=== PATIENT | female | born 1990 | race Caucasian/White ===

== ENCOUNTER 2022-11-11 13:55 | Emergency (ER) | payer BC, MEDICAID, SELFPAY ==
[2022-11-11 14:04] VITALS: BP 145/86; PULSE 78; RESP 18; TEMP 36.7; O2SAT 95; BMI 37.8
[2022-11-11 14:33] VITALS: O2SAT 99
--- NOTE | 2022-11-11 14:36 | ED.GENADUL1 ---
HPI - General Adult General Chief complaint: Headache Stated complaint: NUMBNESS R SIDE OF FACE AND BACK OF HEAD Time Seen by Provider: 11/11/22 14:33 Source: patient Mode of arrival: walk-in Limitations: no limitations Related Data Home Medications Medication Instructions Recorded Confirmed alprazolam 0.5 mg tablet 0.5 mg feeding tube PRN 11/11/22 11/11/22 citalopram 10 mg tablet 30 mg PO QDAY 11/11/22 11/11/22 labetalol 200 mg tablet 200 mg feeding tube TID 11/11/22 11/11/22 levothyroxine 50 mcg tablet 50 mcg PO QDAY 11/11/22 11/11/22 metformin 500 mg tablet 500 mg PO BID 11/11/22 11/11/22 phentermine 37.5 mg tablet 37.5 mg PO QDAY 11/11/22 11/11/22 polysaccharide iron complex 180 mg 180 mg PO QDAY 11/11/22 11/11/22 iron capsule (Pro Fe) vitamin no.115-iron 29 1 tab PO QDAY 11/11/22 11/11/22 mg-folic acid 1 mg chewable tablet ( 19) topiramate 25 mg tablet 50 mg PO Q12H 11/11/22 11/11/22 Allergies Allergy/AdvReac Type Severity Reaction Status Date / Time amoxicillin AdvReac Intermediate Verified 11/11/22 14:04 codeine AdvReac Intermediate Verified 11/11/22 14:09 morphine AdvReac Intermediate Verified 11/11/22 14:04 PCN AdvReac Intermediate Uncoded 11/11/22 14:09 Exam Constitutional Vital Signs, click to edit/add: Last Vital Signs Temp 98.1 F 11/11/22 14:04 Pulse 78 11/11/22 14:04 Resp 18 11/11/22 14:04 BP 145/86 H 11/11/22 14:04 Pulse Ox 99 11/11/22 14:33 O2 Del Method Room Air 11/11/22 14:33 Course Vital Signs Vital signs: Vital Signs Temperature 98.1 F 11/11/22 14:04 Pulse Rate 78 11/11/22 14:04 Respiratory Rate 18 11/11/22 14:04 Blood Pressure 145/86 H 11/11/22 14:04 Pulse Oximetry 95 11/11/22 14:04 Oxygen Delivery Method Room Air 11/11/22 14:04 Temperature 98.1 F 11/11/22 14:04 Pulse Rate 78 11/11/22 14:04 Respiratory Rate 18 11/11/22 14:04 Blood Pressure 145/86 H 11/11/22 14:04 Pulse Oximetry 99 11/11/22 14:33 Oxygen Delivery Method Room Air 11/11/22 14:33 Discharge Plan Discharge Chief Complaint: Headache Patient Disposition: Left Against Medical Advice Prescriptions / Home Meds: No Action alprazolam 0.5 mg tablet 0.5 mg feeding tube PRN citalopram 10 mg tablet 30 mg PO QDAY labetalol 200 mg tablet 200 mg feeding tube TID levothyroxine 50 mcg tablet 50 mcg PO QDAY metformin 500 mg tablet 500 mg PO BID phentermine 37.5 mg tablet 37.5 mg PO QDAY Pro Fe 180 mg iron capsule 180 mg PO QDAY 19 29 mg iron- 1 mg tablet,chewable 1 tab PO QDAY topiramate 25 mg tablet 50 mg PO Q12H Stand Alone Forms: Portal Instructions Referrals: ALINE GUZMAN [Primary Care Provider] - 1 week Discharge Date/Time: 11/11/22 15:36
[2022-11-11] MEDS: ACETAMINOPHEN 500 MG TABLET 1000 MG PO (14:54)
[2022-11-11] MEDS: KETOROLAC TROMETHAMINE 30 MG/ML VIAL IVP (14:54)
[2022-11-11] MEDS: 0.9 % SODIUM CHLORIDE 1,000 ML 1000 ML IV (14:54)
[2022-11-11] MEDS: PROCHLORPERAZINE 10 MG/2 ML VIAL IV (14:54)
--- NOTE | 2022-11-11 15:32 | PC.NURSE ---
11/11/22 1532 heard iv pump beeping went into room pt left facility without telling staff removed iv and left on bed. went to waiting room out to parking lot pt driving out of driveway. went and updated dr pay. Yung Marrufo RN
== END 2022-11-11 15:36 | disposition left against medical advice (07) ==
PROVIDERS: Emergency Provider Emergency Medicine; PCP Family Medicine
DX: R51.9 Headache, unspecified (principal); Z53.29 Procedure and treatment not carried out because of patient's decision for other reasons; Z79.899 Other long term (current) drug therapy; Z79.84 Long term (current) use of oral hypoglycemic drugs
CPT/HCPCS: 96374; 96375; 99284

== ENCOUNTER 2023-06-15 15:49 | Outpatient (OUT) | payer BC, MEDICAID, SELFPAY ==
[2023-06-15 16:59] LABS: HCG Quantitative 43 mIU/mL
== END 2023-06-15 15:50 | disposition home or self-care (01) ==
PROVIDERS: PCP Family Medicine; Visit Provider Obstetrics & Gynecology
DX: Z32.01 Encounter for pregnancy test, result positive (principal)
CPT/HCPCS: 36415; 84702

== ENCOUNTER 2023-06-17 10:55 | Outpatient (OUT) | payer BC, MEDICAID, SELFPAY ==
--- OUTSIDE RECORDS SUMMARY | 2023-06-17 10:59 | XMS_ITS | CCD ---
Author Name Unknown Address [address] [facility] [address] [place] [address] Organization [facility] Care Team Providers Care Circular Shear Operator Name Role Phone PHYSICIAN, DEFAULT Unavailable Unavailable PHYSICIAN, DEFAULT Unavailable Unavailable Naga Wells Unavailable None, . Primary Care Provider UnavailAlesha Garcia Unavailable INGE LEUNG Admitting Unavailable INGE LEUNG Attending Unavailable NONE, . Primary Care Unavailable MATEO GODFREY Referring Unavailable NONE, . Primary Care Unavailable MATEO GODFREY Referring Unavailable NONE, . Primary Care Unavailable NONE, . Primary Care Unavailable LEXI KIMBROUGH Admitting Unavailable LEXI KIMBROUGH Attending Unavailable LILIA RUIZ Consulting Unavailable LILIA RUIZ Attending Unavailable LILIA RUIZ Admitting Unavailable SHERRIE, DR ISRAEL Norman Primary Care Unavailable GILDARDO TAYLOR Consulting Unavailable KARASIK ., DR DOUGHERTY Consulting Unavailabl e KARASIK ., DR DOUGHERTY Attending Unavailabl e KARASIK ., DR DOUGHERTY Admitting Unavailabl e NADEREWendi, DR ISRAEL Norman Primary Care Unavailable JANNIEEREWendi, DR ISRAEL Norman Consulting Unavailable KARASIK ., DR DOUGHERTY Attending Unavailabl e KARASIK ., DR DOUGHERTY Admitting Unavailabl e KARASIK ., DR DOUGHERTY Consulting Unavailabl e SHERRIE, DR ISRAEL Norman Primary Care Unavailable NICHOLAS, DR ZAMORA Attending Unavailable NICHOLAS, DR ZAMORA Admitting Unavailable NADYAZMIN, DR ISRAEL Norman Primary Care Unavailable NICHOLAS, DR ZAMORA Consulting Unavailable RAYSA LINN Attending Unavailable RAYSA LINN Admitting Unavailable SHERRIE, DR ISRAEL Norman Primary Care Unavailable NICHOLAS, DR ZAMORA Admitting Unavailable NICHOLAS, DR ZAMORA Attending Unavailable NICHOLAS, DR ZAMORA Consulting Unavailable NADERER, DR ISRAEL Norman Primary Care Unavailable ZIEBER, DR GERARD Adame Consulting Unavailable FAWWAD, AMEZQUITA H Attending Unavailable FAWWAD, AMEZQUITA H Admitting Unavailable NADERER, DR WOOD A Primary Care Unavailable NICHOLAS, DR ZAMORA Admitting Unavailable NICHOLAS, DR ZAMORA Attending Unavailable NICHOLAS, DR ZAMORA Consulting Unavailable NADERER, DR WOOD A Primary Care Unavailable NICHOLAS, DR ZAMORA Admitting Unavailable NICHOLAS, DR ZAMORA Attending Unavailable NADERER, DR WOOD A Primary Care Unavailable NICHOLAS, DR ZAMORA Consulting Unavailable FAWWAD, AMEZQUITA H Attending Unavailable FAWWAD, AMEZQUITA H Admitting Unavailable NADERER, DR ISRAEL Norman Primary Care Unavailable FAWWAD, AMEZQUITA H Attending Unavailable FAWWAD, AMEZQUITA H Admitting Unavailable NADERER, DR ISRAEL Norman Primary Care Unavailable NICHOLAS, DR ZAMORA Admitting Unavailable NICHOLAS, DR ZAMORA Attending Unavailable NADERER, DR ISRAEL Norman Primary Care Unavailable NICHOLAS, DR ZAMORA Admitting Unavailable NICHOLAS, DR ZAMORA Attending Unavailable NADERER, DR ISRAEL Norman Primary Care Unavailable NICHOLAS, DR ZAMORA Admitting Unavailable NICHOLAS, DR ZAMORA Attending Unavailable NADERER, DR ISRAEL Norman Primary Care Unavailable NICHOLAS, DR ZAMORA Consulting Unavailable NICHOLAS, DR ZAMORA Admitting Unavailable NICHOLAS, DR ZAMORA Attending Unavailable NADERER, DR ISRAEL Norman Primary Care Unavailable NICHOLAS, DR ZAMORA Attending Unavailable WEST, DR ALINE Henriquez Consulting Unavailable NICHOLAS, DR ZAMORA Admitting Unavailable NADERER, DR ISRAEL Norman Primary Care Unavailable NICHOLAS, DR ZAMORA Consulting Unavailable KARASIK ., DR DOUGHERTY Consulting Unavailabl e NADERER, DR ISRAEL Norman Primary Care Unavailable KARASIK ., DR DOUGHERTY Attending Unavailabl e KARASIK ., DR DOUGHERTY Admitting Unavailabl e NICHOLAS, DR ZAMORA Consulting Unavailable ZIEBER, DR GERARD Adame Consulting Unavailable NICHOLAS, DR ZAMORA Admitting Unavailable NICHOLAS, DR ZAMORA Attending Unavailable NADERER, DR ISRAEL Norman Primary Care Unavailable NICHOLAS, DR ZAMORA Consulting Unavailable KARASIK ., DR DOUGHERTY Admitting Unavailabl e KARASIK ., DR DOUGHERTY Consulting Unavailabl e KARASIK ., DR DOUGHERTY Attending Unavailabl e NADERER, DR ISRAEL Norman Primary Care Unavailable NICHOLAS, DR ZAMORA Consulting Unavailable NICHOLAS, DR ZAMORA Attending Unavailable NICHOLAS, DR ZAMORA Admitting Unavailable NADERER, DR ISRAEL Norman Primary Care Unavailable ZIEBER, DR GERARD Adame Consulting Unavailable KARASIK ., DR DOUGHERTY Admitting Unavailabl e KARASIK ., DR DOUGHERTY Consulting Unavailabl e KARASIK ., DR DOUGHERTY Attending Unavailabl e NADERER, DR ISRAEL Norman Primary Care Unavailable NICHOLAS, DR ZAMORA Admitting Unavailable NICHOLAS, DR ZAMORA Attending Unavailable NADERER, DR ISRAEL Norman Primary Care Unavailable NICHOLAS, DR ZAMORA Admitting Unavailable KARASIK ., DR DOUGHERTY Consulting Unavailabl e NICHOLAS, DR ZAMORA Attending Unavailable NADERER, DR ISRAEL Norman Primary Care Unavailable WEST, DR ALINE Henriquez Consulting Unavailable NICHOLAS, DR ZAMORA Consulting Unavailable KARASIK ., DR DOUGHERTY Admitting Unavailabl e KARASIK ., DR DOUGHERTY Consulting Unavailabl e KARASIK ., DR DOUGHERTY Attending Unavailabl e NADERER, DR ISRAEL Norman Primary Care Unavailable KARASIK ., DR DOUGHERTY Attending Unavailabl e KARASIK ., DR DOUGHERTY Admitting Unavailabl e KARASIK ., DR DOUGHERTY Consulting Unavailabl e FAWWAD, H Primary Care Unavailable NICHOLSA, DR ZAMORA Admitting Unavailable NICHOLAS, DR ZAMORA Attending Unavailable NADERER, DR ISREAL Norman Primary Care Unavailable NICHOLAS, DR ZAMORA Consulting Unavailable ZIEBER, DR GERARD Adame Consulting Unavailable KARASIK ., DR DOUGHERTY Attending Unavailabl e KARASIK ., DR DOUGHERTY Admitting Unavailabl e KARASIK ., DR DOUGHERTY Consulting Unavailabl e NADERER, DR ISRAEL Norman Primary Care Unavailable KARASIK ., DR DOUGHERTY Admitting Unavailabl e KARASIK ., DR DOUGHERTY Consulting Unavailabl e KARASIK ., DR DOUGHERTY Attending Unavailabl e NADERER, DR ISRAEL Norman Primary Care Unavailable NICHOLAS, DR ZAMORA Consulting Unavailable NICHOLAS, DR ZAMORA Admitting Unavailable NICHOLAS, DR ZAMORA Attending Unavailable NADERER, DR ISRAEL Norman Primary Care Unavailable NICHOLAS, DR ZAMORA Consulting Unavailable NICHOLAS, DR ZAMORA Attending Unavailable NICHOLAS, DR ZAMORA Admitting Unavailable NADERER, DR ISRAEL Norman Primary Care Unavailable JIAN, DAV Consulting Unavailable JIAN, DAV Attending Unavailable FAWWAD, SHAIKH Vandana Primary Care Unavailable JIAN, DAV Admitting Unavailable LOPEZ, RICKY Consulting Unavailable NICHOLAS, DR ZAMORA Admitting Unavailable NICHOLAS, DR ZAMORA Attending Unavailable NADERER, DR ISRAEL Norman Primary Care Unavailable NICHOLAS, DR ZAMORA Admitting Unavailable NICHOLAS, DR ZAMORA Attending Unavailable NICHOLAS, DR ZAMORA Consulting Unavailable NADERER, DR ISRAEL Norman Primary Care Unavailable ZIEBER, DR GERARD Adame Consulting Unavailable NICHOLAS, DR ZAMORA Admitting Unavailable NICHOLAS, DR ZAMORA Attending Unavailable NADERER, DR ISRAEL Norman Primary Care Unavailable NICHOLAS, DR ZAMORA Consulting Unavailable NICHOLAS, DR ZAMORA Admitting Unavailable NICHOLAS, DR ZAMORA Attending Unavailable NICHOLAS, DR ZAMORA Consulting Unavailable NADERER, DR ISRAEL Norman Primary Care Unavailable NICHOLAS, DR ZAMORA Admitting Unavailable NICHOLAS, DR ZAMORA Attending Unavailable NADERER, DR ISRAEL Norman Primary Care Unavailable NICHOLAS, DR ZAMORA Consulting Unavailable ZIEBER, DR GERARD Adame Consulting Unavailable NICHOLAS, DR ZAMORA Admitting Unavailable NICHOLAS, DR ZAMORA Attending Unavailable NICHOLAS, DR ZAMORA Consulting Unavailable NADERER, DR ISRAEL Norman Primary Care Unavailable NICHOLAS, DR ZAMORA Admitting Unavailable NICHOLAS, DR ZAMORA Attending Unavailable NICHOLAS, DR ZAMORA Consulting Unavailable NADERER, DR ISRAEL Norman Primary Care Unavailable ZIEBER, DR GERARD Adame Consulting Unavailable NICHOLAS, DR ZAMORA Admitting Unavailable NICHOLAS, DR ZAMORA Attending Unavailable NADERER, DR ISRAEL Norman Primary Care Unavailable NICHOLAS, DR ZAMORA Consulting Unavailable NICHOLAS, DR ZAMORA Admitting Unavailable NICHOLAS, DR ZAMORA Attending Unavailable NADERER, DR ISRAEL Norman Primary Care Unavailable NICHOLAS, DR ZAMORA Consulting Unavailable ZIEBER, DR GERARD Adame Consulting Unavailable NICHOLAS, DR ZAMORA Attending Unavailable MISC, DR ROSE Primary Care Unavailable NICHOLAS, DR ZAMORA Admitting Unavailable MD Aline Villalobos Primary Care Provider JOSHUA Muller-OSCAR Coronado Attending Provider Aline Villalobos Primary Care Unavailable Muller, Razia E Admitting Unavailable Muller, Razia E Attending Unavailable Defrance, Aline Primary Care Unavailable Muller, Razia E Admitting Unavailable Muller, Razia E Attending Unavailable Jovita Murcia [facility]available [facility], [facility] Provide r KATERIN HAYNES Attending Unavailable [facility] Referring Unavailable [facility] ALEXANDER CAMPUSER, KATERIN Primary Care Unavailable SCHLACHTER, [facility] Primary Care Unavailable CLAUDIA SOLARES Attending Unavailable LINA HUGHES Attending Unavailable LINA HUGHES Referring Unavailable [facility], [facility] Unavailable CHARMAINE HAIRSTON Attending Unavailable NOAH PETERSON Attending Unavailable ISRAEL BALDERAS Attending [facility]available [facility], [facility] Provide r Allergies Allergy Classification Reported Allergen(s) Allergy Type Date of Onset Reaction(s) Facility (17 sources) Amoxicillin; Translations: [Amoxicillin] Drug Allergy 11-08-18 96 Anaphylaxis, shortness of breath [facility] (14 sources) Morphine; Translations: [MORPHINE] Drug Allergy 09-18-19 18 hives, Rash [employer] [facility] Other (12 sources) Codeine; Translations: [CODEINE] Drug Allergy 06-06-19 23 [facility] (9 sources) Penicillins; Translations: [PENICILLINS] Propensity to adverse reactions to drug 02-22-20 16 Anaphylaxis, Shortness Of Breath [facility] Work Phone: (1 source) Codeine Drug Allergy 07-30-19 22 [facility] (1 source) Morphine Drug Allergy [facility] (1 source) Codeine Drug Allergy 12-23-19 23 [facility] (1 source) Morphine Drug Allergy 05-25-19 21 [facility] (1 source) Pseudoephedrine Drug Allergy 02-22-20 22 Unknown [employer] Other (1 source) Allergies Reconciled Propensity to adverse reactions 02-28-20 22 Unknown [employer] Other (1 source) Substance with penicillin structure and antibacterial mechanism of action (substance) Drug allergy 02-28-20 Unknown [employer] Other (1 source) Morphine Sulfate (Concentrate) *ANALGESICS - OPIOI Propensity to adverse reactions 02-28-20 Unknown [employer] Other (6 sources) Doxycycline; Translations: [DOXYCYCLINE] Drug Allergy 02-08-20 [facility] Medications Current Medications Medication Drug Class(es) Dates Sig (Normalized) Sig (Original) acetaminophen 500 mg oral tablet (5 sources) Start: 07-20-2022 1,000 mg, Oral, EVERY 6 HOURS, First dose on [place] 07/20/22 at 2200, Until Discontinued Give in addition to any other pain medication ordered at same time for any pain indication. &nb sp;Maximum dose of acetaminophen is 4000mg from all sources in 24 hours. Alternate ibuprofen and acetaminophen every 4 hours. Start: 07-20-2022 End: 07-20-2022 take 1 dose by mouth once 975 mg, Oral, ONCE, 1 dose, On [place] 07/20/22 at 1545 Administer with sips of water. Labor and Delivery (Signed and Held) take 1 tablet by ken th every six hours as needed Acetaminophen 500 MG 1 tablet as needed Orally every 6 hrs Active acetaZOLAMIDE 250 mg oral tablet (5 sources) Carbonic Anhydrase Inhibitor Start: 12-27-2022 take 1 tablet by mouth in the morning, then take 1 tablet by mouth at bedtime acetaZOLAMIDE (DIAMOX) 250 mg tablet Take 1 tablet (250 mg total) by mouth in the morning and 1 tablet (250 mg total) before bedtime. 0 12/27/2022 Active [id number] 200 actuat albuterol 0.09 mg/actuat metered dose inhaler (8 sources) beta2-Adrenergi c Agonist Start: 02-26-2023 take 2 puff(s) by inhalation every six hours as needed for wheezing albuterol (PROVENTIL HFA;VENTOLIN HFA) 90 mcg/actuation inhaler Indications: Uncomplicated asthma, unspecified asthma severity, unspecified whether persistent Inhale 2 puffs every 6 (six) hours as needed for wheezing. 18 g 11 02/26/2023 Active Start: 02-05-2023 take 2 puff(s) by in halation four times daily as needed Albuterol Sulfate HFA 108 (90 Base) MCG/ACT 2 puffs Inhalation 4 times a day prn Jan, Active Start: 05-22-2022 albuterol sulf ate HFA (PROVENTIL;VENTOLIN;PROAIR) 108 (90 Base) MCG/ACT inhaler ALPRAZolam 0.5 mg oral tablet (2 sources) Benzodiazepine Start: 11-27-2018 take 1 tablet by mouth once daily Alprazolam (Xanax) 0.5 mg Tablet Active 0.5 MG PO Daily November 27, 2018 12:00am atogepant (QULIPTA) 30 mg tablet (4 sources) take 1 tablet by mouth in the morning atogepant (QULIPTA) 30 mg tablet Take 30 mg by mouth in the morning. 0 Active azithromycin 250 mg oral tablet (2 sources) Macrolide Antimicrobial Start: 05-03-2023 End: 05-08-2023 take 1 tablet by mouth in the morning, then take 2 tablets by mouth once daily, then take 1 tablet by mouth once daily azithromycin (ZITHROMAX) 250 mg tablet Take 1 tablet (250 mg total) by mouth in the morning for 5 days. Take 2 tablets the first day, then 1 tablet daily for 4 days.. 6 tablet 1 05/03/2023 05/08/2023 Active Start: 07-06-2022 azithromycin ( ZITHROMAX) 250 MG tablet benzonatate 200 mg oral capsule (1 source) Non-narcotic Antitussive Start: 02-05-2023 take 1 capsule by mouth every eight hours Benzonatate 200 MG 1 capsule Orally Three times a day Jan, Active Blood Glucose Monitoring Suppl (ONE TOUCH ULTRA 2) w/Device KIT (3 sources) Start: 03-04-2022 Blood Glucose Monitoring Suppl (ONE TOUCH ULTRA 2) w/Device KIT 24 hr buPROPion hydrochloride 150 mg extended release oral tablet (2 sources) Aminoketone Start: 06-14-2022 buPROPion (WELLBUTRIN XL) 150 MG extended release tablet cetirizine hydrochloride 10 mg oral tablet (6 sources) Histamine-1 Receptor Antagonist Start: 11-20-2023 take 1 tablet by mouth in the morning cetirizine (ZyrTEC) 10 mg tablet Take 1 tablet (10 mg total) by mouth in the morning. 30 tablet 2 03/12/2023 Active Start: 07-18-2022 take 1 tablet by ken th every twenty-four hours Cetirizine HCl 10 MG 1 tablet Orally Once a day for 14 days Jun, Not-Taking citalopram 40 mg oral tablet (4 sources) Serotonin Reuptake Inhibitor Start: 12-22-2022 take 1 tablet by mouth once daily Citalopram (Celexa) 40 mg Tablet Active 40 MG PO Daily December 22, 2022 12:00am Start: 07-21-2022 take 1 tablet by ken th once daily citalopram (CELEXA) 20 MG tablet Take 1 tablet by mouth daily 30 tablet 1 07/21/2022 Active Start: 05-02-2022 citalopram (CE BRENNA) 20 MG tablet cyclobenzaprine hydrochloride 10 mg oral tablet (4 sources) Muscle Relaxant Start: 02-24-2023 take 1 tablet by mouth twice daily as needed for muscle spasms cyclobenzaprine (FLEXERIL) 10 mg tablet Take 1 tablet (10 mg total) by mouth 2 (two) times a day as needed for muscle spasms. 10 tablet 0 02/24/2023 Active doxycycline hyclate 100 mg oral tablet (1 source) Tetracycline-class Drug Start: 02-05-2023 take 1 tablet by mouth every twelve hours Doxycycline Hyclate 100 MG 1 tablet Orally Twice a day for 10 day(s) Jan, Active fluticasone propionate 0.05 mg/actuat metered dose nasal spray (6 sources) Corticosteroid Start: 03-12-2023 take 1 spray(s) nasal route in the morning fluticasone propionate (FLONASE) 50 mcg/actuation nasal spray Administer 1 spray into each nostril in the morning. 15.8 mL 2 03/12/2023 Active Start: 07-18-2022 take 1 spray(s) nasa l route once daily Flonase Allergy Relief 50 MCG/ACT 1 spray in each nostril Nasally Once a day for 14 day(s) Jun, Not-Taking 1.5 ml fremanezumab-vfrm 150 mg/ml prefilled syringe (1 source) Ajovy 225 MG/1.5 ML 1.5 mL Subcutaneous Active 3 ml insulin isophane, human 100 unt/ml pen injector (3 sources) Start: 06-29-2022 HUMULIN N KWIK PEN 100 UNIT/ML injection pen 50 Units 0 06/29/2022 Active Start: 05-12-2022 HUMULIN N KWIK PEN 100 UNIT/ML injection pen 40 Units 0 05/12/2022 Active insulin, regular, human 100 unt/ml injectable solution (3 sources) Insulin Start: 06-29-2022 HUMULIN R 100 UNIT/ML injection Inject 32 Units into the skin 2 times daily (before meals) 13 before breakfast and 32 before dinner 0 06/29/2022 Active Start: 05-15-2022 HUMULIN R 100 UNIT/ML injection Inject 26 Units into the skin 2 times daily (before meals) 0 05/15/2022 Active isopropyl alcohol 0.7 ml/ml medicated pad (3 sources) Start: 05-02-2022 Alcohol Swabs (ALCOHOL PREP) 70 % PADS ketorolac tromethamine 10 mg oral tablet (4 sources) Nonsteroidal Anti-inflammatory Drug, Cyclooxygenase Inhibitor Start: 02-26-2023 take 1 tablet by mouth every six hours as needed for pain ketorolac (TORADOL) 10 mg tablet Take 1 tablet (10 mg total) by mouth every 6 (six) hours as needed for pain. 20 tablet 0 02/26/2023 Active labetalol hydrochloride 100 mg oral tablet (11 sources) beta-Adrenergic Roxana Start: 06-06-2023 take 2 tablets by mouth three times daily labetaloL (NORMODYNE) 100 mg tablet TAKE 2 TABLETS BY MOUTH 3 TIMES A DAY FOR 90 DAYS. 540 tablet 0 06/06/2023 Active Start: 02-26-2023 End: 05-27-2023 take 2 tablets by mouth three times daily labetaloL (NORMODYNE) 100 mg tablet Take 2 tablets (200 mg total) by mouth 3 (three) times a day for 90 days. 540 tablet 0 02/26/2023 05/27/2023 Active Start: 12-22-2022 take 400 mg by mouth twice corbin ly Labetalol Active 400 MG PO Twice daily December 22, 2022 12:00am Start: 07-22-2022 take 4 tablets by [facility] at bedtime labetalol (NORMODYNE) 100 MG tablet Take 4 tablets by mouth in the morning, at noon, and at bedtime 60 tablet 3 07/22/2022 Active Start: 07-21-2022 labetalol (NOR MODYNE) tablet 400 mg Start: 06-01-2022 End: 07-21-2022 labetalol (NORMODYNE) tablet 200 mg Labetalol HCl Ac tive lanolin 0.5 mg/mg topical ointment (1 source) Start: 07-20-2022 Topical, EVERY 1 HOUR PRN, Dry Skin, nipple discomfort, Starting on [place] 07/20/22 at 1933, levonorgestrel 0.360886 mg/hr intrauterine system (2 sources) Progestin, Progestin-containing Intrauterine Device Start: 12-22-2022 Levonorgestrel (Mirena) 21 mcg/24 hours (8 yrs) 52 mg Intrauterine Device Active 1 DEVICE INTRAUTERI Once December 22, 2022 12:00am as a single dose Start: 07-20-2022 End: 07-20-2022 levonorgestrel (MIRENA) IUD 52 mg 1 each magnesium lactate 84 mg extended release oral tablet (4 sources) take 1 tablet by mouth in the morning magnesium (MAGTAB) 84 mg tablet extended release CR tablet Take 1 tablet (84 mg total) by mouth in the morning. 0 Active 24 hr metFORMIN hydrochloride 500 mg extended release oral tablet (6 sources) Biguanide Start: 08-30-2022 take 2 tablets by mouth once daily at dinner metFORMIN XR (GLUCOPHAGE XR) 500 mg 24 hr tablet Take 2 tablets (1,000 mg total) by mouth daily with dinner. 0 08/30/2022 Active Start: 11-27-2018 take 500 mg by mouth twice corbin ly Metformin Active 500 MG PO Twice daily November 27, 2018 12:00am metroNIDAZOLE 500 mg oral tablet (2 sources) Nitroimidazole Antimicrobial Start: 07-22-2022 End: 07-22-2022 take 1 tablet by mouth once metroNIDAZOLE (FLAGYL) 500 MG tablet Take 1 tablet by mouth once for 1 dose 1 tablet 0 07/22/2022 07/22/2022 Active Start: 07-20-2022 End: 07-22-2022 500 mg, Oral, EVERY 8 HOURS SCHEDULED (3 times per day), 6 doses, First dose on [place] 07/20/22 at 2200, Last dose on 07/22/22 at 1400 Antimicrobial Indications: Surgical Prophylaxis ondansetron (ZOFRAN-ODT) disintegrating tablet 4 mg (1 source) Start: 07-15-2022 ondansetron (Z OFRAN-ODT) disintegrating tablet 4 mg oxyCODONE (2 sources) Opioid Agonist Start: 07-20-2022 oxyCODONE (DALE ICODONE) immediate release tablet 5 mg Start: 07-20-2022 End: 07-25-2022 take 1 tablet by mouth every six hours as needed for pain oxyCODONE (ROXICODONE) 5 MG immediate release tablet Indications: Postoperative state Take 1 tablet by mouth every 6 hours as needed for Pain for up to 5 days. Intended supply: 5 days. Take lowest dose possible to manage pain Max Daily Amount: 20 mg 20 tablet 0 07/20/2022 07/25/2022 Active oxytocin (PITOCIN) 30 units in 500 mL infusion (1 source) Start: 07-20-2022 End: 07-22-2022 oxytocin (PITOCIN) 30 units in 500 mL infusion polysaccharide iron complex 391 mg oral capsule (3 sources) Start: 06-20-2022 PROFE 391.3 (180 Fe) MG CAPS no115/iron/folic acid ( 19 ORAL) (4 sources) no115/iron/folic acid ( 19 ORAL) Take by mouth. 0 Active VITAMINS PO (3 sources) VITAMIN S PO Take by mouth. 0 Active 2 ml prochlorperazine 5 mg/ml injection (1 source) Phenothiazine Start: 07-20-2022 prochlorperazine (COMPAZINE) injection 10 mg pseudoephedrine hydrochloride 30 mg oral tablet (3 sources) alpha-Adrenergic Agonist Start: 05-21-2011 take 1 tablet by mouth every four hours as needed pseudoephedrine (SUDAFED) 30 MG tablet Indications: Upper Respiratory System Symptoms Take 30 mg by mouth every 4 hours as needed Indications: Upper Airway Symptoms 0 05/21/2011 Active rimegepant 75 mg disintegrating oral tablet (4 sources) Start: 10-23-2022 NURTEC ODT 75 mg tablet,disintegratin g TAKE 1 TABLET BY MOUTH NEEDED FOR ONSET OF MIGRAINE, ONLY 1 IN 24 HOURS 0 10/23/2022 Active topiramate 25 mg oral tablet (1 source) Start: 12-22-2022 take 3 tablets by mouth twice daily Topiramate (Topamax) 25 mg Tablet Active 75 MG PO Twice daily December 22, 2022 12:00am valACYclovir 500 mg oral tablet (5 sources) Herpesvirus Nucleoside Analog DNA Polymerase Inhibitor, Herpes Simplex Virus Nucleoside Analog DNA Polymerase Inhibitor, Herpes Zoster Virus Nucleoside Analog DNA Polymerase Inhibitor Start: 10-21-2021 take 1 tablet by mouth in the morning valACYclovir (VALTREX) 500 mg tablet Take 1 tablet (500 mg total) by mouth in the morning. 0 10/21/2021 Active Completed/Discontinued Medications Medication Drug Class(es) Dates Sig (Normalized) Sig (Original) Aspir-81 (3 sources) Aspir-81 Not-Renny ing Aspir-81 Active aspirin 81 mg delayed release oral tablet (3 sources) Platelet Aggregation Inhibitor, Nonsteroidal Anti-inflammatory Drug End: 07-20-2022 take 1 tablet by mouth once daily aspirin 81 MG EC tablet Take 81 mg by mouth daily 0 07/20/2022 Discontinued (Stop Taking at Discharge) biotin 5 mg disintegrating oral tablet (2 sources) Start: 11-27-2018 End: 12-22-2022 take 1 tablet by mouth once daily Biotin Discontinued 1 TAB PO Daily November 27, 2018 12:00am December 22, 2022 8:12am bisacodyl 10 mg rectal suppository (1 source) Stimulant Laxative Start: 07-20-2022 take 10 mg rectal route once daily as needed 10 mg, Rectal, DAILY PRN, Starting on [place] 07/20/22 at 1933, Until Discontinued, Constipation, Budesonide-Formoter ol (2 sources) Corticosteroid, beta2-Adrenergic Agonist Start: 11-27-2018 End: 12-22-2022 take 1 puff(s) by inhalation twice daily Budesonide-Formo terol (Symbicort) 160-4.5 mcg/actuation Hfa Aerosol Inhaler Discontinued 2 PUFF INHALATION Twice daily November 27, 2018 12:00am December 22, 2022 8:12am Start: 11-27-2018 take 1 puff(s) by in halation twice daily Budesonide-Formoterol (Symbicort) 160-4.5 mcg/actuation Hfa Aerosol Inhaler Active 2 PUFF INHALATION Twice daily November 27, 2018 12:00am citric acid 66.8 mg/ml / sodium citrate 100 mg/ml oral solution (1 source) Calculi Dissolution Agent, Anti-coagulant Start: 07-20-2022 End: 07-20-2022 take 1 dose by mouth once 30 mL, Oral, ONCE, 1 dose, On [place] 07/20/22 at 1545 Give immediately prior to transfer to surgery. Labor and Delivery (Signed and Held) 50 ml clindamycin 18 mg/ml injection (1 source) Lincosamide Antibacterial Start: 07-20-2022 End: 07-20-2022 clindamycin (CLEOCIN) 900 mg in dextrose 5 % 50 mL IVPB 1 ml diphenhydrAMINE hydrochloride 50 mg/ml cartridge (2 sources) Histamine-1 Receptor Antagonist Start: 07-20-2022 25 mg, IntraVENous, EVERY 6 HOURS PRN, Starting on [place] 07/20/22 at 1933, Until Discontinued, Itching, Hives, Start: 07-15-2022 End: 07-15-2022 diphenhydrAMINE (BENADRYL) i njection 25 mg docusate sodium 100 mg oral capsule (2 sources) Start: 07-20-2022 End: 08-19-2022 take 100 mg by mouth twice daily 100 mg, Oral, 2 TIMES DAILY, First dose on Sun07/20/22 at 2100, Until Discontinued Do not crush or break. 0.4 ml enoxaparin sodium 100 mg/ml prefilled syringe (1 source) Low Molecular Weight Heparin Start: 07-21-2022 inject 40 mg by subcutaneous injection twice daily 40 mg, SubCUTAneous, 2 TIMES DAILY, First dose on Sun07/21/22 at 0900, Until Discontinued Indication of Use: Prophylaxis-DVT/P E Administer by deep subCUTAneous injection with pt lying down. Alternate injection sites on abdominal wall. Do not rub site after injection. Check with provider prior to any invasive procedure. famotidine (PEPCID) 20 mg in sodium chloride (PF) 0.9 % 10 mL injection (1 source) Start: 07-20-2022 End: 07-20-2022 20 mg, IntraVENous, ONCE, 1 dose, On [place] 07/20/22 at 1545 Give 60 minutes before surgery. Labor and Delivery (Signed and Held) gentamicin (GARAMYCIN) 500 mg in sodium chloride 0.9 % 250 mL IVPB (1 source) Start: 07-20-2022 End: 07-20-2022 gentamicin (GARAMYCIN) 500 mg in sodium chloride 0.9 % 250 mL IVPB ibuprofen 600 mg oral tablet (2 sources) Nonsteroidal Anti-inflammatory Drug Start: 07-21-2022 take 600 mg by mouth every six hours 600 mg, Oral, EVERY 6 HOURS, First dose on Sun07/21/22 at 1400, Until Discontinued Do not crush or chew. Start: 07-20-2022 take 1 tablet by ken th every eight hours as needed for pain ibuprofen (ADVIL;MOTRIN) 800 MG tablet Take 1 tablet by mouth every 8 hours as needed for Pain 30 tablet 0 07/20/2022 Active insulin isophane / insulin, regular, human (5 sources) Insulin HumuLIN N Not-Ta jackeline HumuLIN R Not-Ta jackeline HumuLIN N Active HumuLIN R Active insulin 70-30 (H UMULIN;NOVOLIN) (70-30) 100 UNIT per ML injection vial Inject 12 Units into the skin 2 times daily (before meals) 0 Active insulin lispro 100 unt/ml injectable solution (1 source) Insulin Analog Start: 07-20-2022 0-12 Units, SubCUTAneous, 4 TIMES DAILY BEFORE MEALS & NIGHTLY, First dose on [place] 07/20/22 at 2100, Until Discontinued Intrapartum Glycemic Management of women with Type 1 and Type 2 DM Corrective Algorithm Glucose: Dose: If <120 No Insulin 121 to 140 1 Units 141 to 160 2 Units 161 to 180 3 Units 181 to 249 4 Units 250-299 6 Units 300-349 8 Units 350-400 10 Units Above 400 12 Units iopamidol (ISOVUE-370 ) 76 % injection 75 mL (1 source) Start: 07-15-2022 End: 07-15-2022 iopamidol (ISOVUE-370) 76 % injection 75 mL lamoTRIgine 150 mg oral tablet (4 sources) Mood Stabiliz er, Anti-epi leptic Agent Start: 11-27-2018 End: 12-22-2022 t a k e 1 5 0 m g b y m o u t h o n c e d a i l y Lamotrigine Discontinued 150 MG PO Daily November 27, 2018 12:00am December 22, 2022 8:12am lamoTRIgine 250 MG TB24 Take 150 mg by mouth 0 Active take 1 tablet by ken th every twenty-four hours LaMICtal 200 MG 1 tablet Orally once a d ay Active levothyroxine sodium 0.05 mg oral tablet (15 sources) l-Thyroxine Start: 05-22-2022 End: 07-20-2022 levothyroxine (SYNTHROID) 75 MCG tablet Start: 11-27-2018 take 50 ug by mouth once daily Levothyroxine Active 50 MCG PO Daily November 27, 2018 12:00am Start: 11-27-2018 take 25 ug by mouth once daily Levothyroxine Active 25 MCG PO Daily November 27, 2018 12:00am Start: 02-07-2018 levothyroxine (SYNTHROID, LEVOTHROID) 50 MCG tablet 1 tablet (50 mcg total). 5 02/07/2018 Active take 1 tablet by ken th once daily in the morning Levothyroxine Sodium 75 MCG 1 tablet in the morning on an empty stomach Orally Once a day Active take 1 tablet by ken th once daily in the morning Levothyroxine Sodium 50 MCG 1 tablet in the morning on an empty stomach Orally Once a day Active lurasidone hydrochloride 40 mg oral tablet (2 sources) Atypical Antipsychotic Start: 11-27-2018 End: 12-22-2022 take 1 tablet by mouth once daily Lurasidone (Latuda) 40 mg Tablet Discontinued 40 MG PO Daily November 27, 2018 12:00am Maggy 1st, 2023 8:12am magnesium hydroxide 80 mg/ml oral suspension (1 source) Start: 07-20-2022 take 30 mL by mouth once daily as needed 30 mL, Oral, DAILY PRN, Starting on [place] 07/20/22 at 1933, Until Discontinued, Constipation, 2 ml metoclopramide 5 mg/ml prefilled syringe (1 source) Dopamine-2 Receptor Antagonist Start: 07-15-2022 End: 07-15-2022 metoclopramide (REGLAN) injection 10 mg 24 hr metoprolol succinate 50 mg extended release oral tablet (2 sources) beta-Adrenergic Roxana Start: 11-27-2018 End: 12-22-2022 take 50 mg by mouth once daily Metoprolol Succinate Discontinued 50 MG PO Daily November 27, 2018 12:00am December 22, 2022 8:13am 1 ml naloxone hydrochloride 0.4 mg/ml injection (1 source) Opioid Antagonist Start: 07-20-2022 0.4 mg, IntraVENous, PRN, Starting on [place] 07/20/22 at 1933, Until Discontinued, Opioid Reversal, 2 ml ondansetron 2 mg/ml injection (4 sources) Serotonin-3 Receptor Antagonist Start: 07-20-2022 4 mg, IntraVENous, EVERY 6 HOURS PRN, Starting on [place] 07/20/22 at 1933, Until Discontinued, Nausea, Start: 11-16-2017 take 1 tablet by ken th every eight hours as needed for nausea ondansetron (ZOFRAN) 4 MG tablet Take 1 tablet by mouth every 8 hours as needed for Nausea 20 tablet 0 11/16/2017 Active polyethylene glycol 3350 [id number] mg powder for oral solution (3 sources) Osmotic Laxative Start: 06-28-2022 17 g, Oral, DAILY PRN, Starting on [place] 07/20/22 at 1933, Until Discontinued, Constipation, predniSONE 20 mg oral tablet (2 sources) Start: 02-05-2023 End: 05-03-2023 take 1 tablet by mouth twice daily predniSONE (DELTASONE) 20 mg tablet TAKE 1 TABLET BY MOUTH TWICE A DAY FOR 5 DAYS 0 02/05/2023 05/03/2023 Discontinued (3 sources) Not-Renny ing Active vitamin plus iron 29-1 MG tablet 1 tablet (1 source) Start: 03-30-2023 take 1 tablet by ken th once daily 1 tablet, Oral, DAILY, First dose on [place] 07/20/22 at 2000, Until Discontinued Begin when normal bowel activity resumes. simethicone 80 mg chewable tablet (1 source) Start: 07-20-2022 take 80 mg by mouth every six hours as needed 80 mg, Oral, EVERY 6 HOURS PRN, Starting on [place] 07/20/22 at 1933, Until Discontinued, Cramping, Flatulence, 5 ml sodium chloride 9 mg/ml injection (5 sources) Start: 07-20-2022 take 1 dose intravenously twice daily 5-40 mL, IntraVENous, EVERY 12 HOURS SCHEDULED (2 times per day), First dose on [place] 07/20/22 at 2100, Until Discontinued For Line Patency: Peripheral IV = 5 mL; Midline or Central Line = 10 mL/lumen. &n bsp;If following IV push medication, administer flush at same rate as the IV push. Flush volume is determined by type of infusion therapy being given. For non-viscous solutions use: Peripheral IV = 5 mL Midline or Central Line = 10 mL/lumen F or viscous solutions (i.e. blood components, parenteral nutrition, contrast media, or after obtaining blood sample) use: Peripheral IV = 10 mL Midline or Central Line = 20 mL/lumen Start: 07-20-2022 IntraVENous, a t 5-250 mL/hr, PRN, if patient receiving piggyback infusions and maintenance fluids are not ordered OR KVO fluids to protect IV site / prevent frequent line interruptions/ long duration, Starting on [place] 07/20/22 at 1933 For piggyback infusion, administer at same rate as piggyback for a total of 25 mL. Enter 25 mL into dose field and piggyback rate into rate field of order. If piggyback is infusing at a rate less than 100 mL/hr, enter 25 mL into dose field and 100 mL/hr into rate field of order. For KVO fluids, enter rate of 20 mL/hr or less into rate field of order. Start: 07-20-2022 End: 07-20-2022 IntraVENous, at 125 mL/hr, CONTINUOUS, Starting on [place] 07/20/22 at 1545, Labor and Delivery (Signed and Held) Start: 07-20-2022 End: 07-20-2022 take 5-40 mL intravenously once as needed 5-40 mL, IntraVENous, PRN, Starting on [place] 07/20/22 at 1933, Until Discontinued, Line Care, After every IV line use For Line Patency: Peripheral IV = 5 mL; Midline or Central Line = 10 mL/lumen. If following IV push medication, administer flush at same rate as the IV push. Flush volume is determined by type of infusion therapy being given. For non-viscous solutions use: Peripheral IV = 5 mL Midline or Central Line = 10 mL/lumen For viscous solutions (i.e. blood components, parenteral nutrition, contrast media, or after obtaining blood sample) use: Peripheral IV = 10 mL Midline or Central Line = 20 mL/lumen Vitamin B Complex (3 sources) Start: 11-27-2018 End: 12-22-2022 take 1 tablet by mouth once daily Vitamin B Complex Discontinued 1 TAB PO Daily November 27, 2018 12:00am December 22, 2022 8:14am Start: 11-27-2018 take 1 tablet by mouth once da juice Vitamin B Complex Active 1 TAB PO Daily November 27, 2018 12:00am Vitamin B Comple x Active Problems Active Problems Problem Classification Problem Date Documented Date Episodic/Chronic Abdominal pain (6 sources) Right upper quadrant pain; Translations: [Right upper quadrant pain] Onset: 04-19-2022 Episodic Anal and rectal conditions (1 source) Anal fissure; Translations: [Anal fissure, unspecified] Episodic Anxiety disorders (6 sources) Anxiety disorder; Translations: [Anxiety disorder, unspecified] Onset: 06-19-2018 06-19-2018 Chronic Cancer of cervix (1 source) Cervicovaginal cytology: Low grade squamous intraepithelial lesion; Translations: [Low grade squamous intraepithelial lesion on cytologic smear of cervix (LGSIL)] Episodic Chronic obstructive pulmonary disease and bronchiectasis (1 source) Bronchitis, not specified as acute or chronic Episodic Conditions associated with dizziness or vertigo (1 source) Dizziness Onset: 05-03-2023 Episodic Contraceptive and procreative management (2 sources) Intrauterine contraceptive device in situ; Translations: [Presence of (intrauterine) contraceptive device] Onset: 07-20-2022 Episodic Diabetes or abnormal glucose tolerance complicating ; childbirth; or the puerperium (5 sources) Diabetes mellitus during - baby not yet delivered; Translations: [Unspecified diabetes mellitus in , unspecified trimester] Onset: 07-03-2011 Resolved: 07-22-2022 01-21-2015 Chronic Diabetes or abnormal glucose tolerance complicating ; childbirth; or the puerperium (12 sources) Gestational diabetes mellitus; Translations: [Gestational diabetes mellitus in , insulin controlled] Onset: 03-15-2022 Episodic Essential hypertension (1 source) Essential hypertension; Translations: [Essential (primary) hypertension] Chronic Genitourinary symptoms and ill-defined conditions (1 source) Dysuria; Translations: [Dysuria] Episodic Headache; including migraine (1 source) Chronic migraine without aura, non-refractory; Translations: [Chronic migraine without aura, not intractable, without status migrainosus] Chronic Headache; including migraine (1 source) Headache Onset: 05-16-2023 Episodic Headache; including migraine (2 sources) Headache; including migraine; Translations: [Headache, unspecified] Onset: 05-16-2023 Heart valve disorders (1 source) Aortic valve disorder; Translations: [Other nonrheumatic aortic valve disorders] Chronic Hemorrhage during ; abruptio placenta; placenta previa (9 sources) Placenta previa without hemorrhage - not delivered; Translations: [Complete placenta previa NOS or without hemorrhage, unspecified trimester] Onset: 05-04-2011 Resolved: 07-22-2022 05-04-2011 Episodic Hypertension complicating ; childbirth and the puerperium (11 sources) Hypertension complicating ; Translations: [Unspecified maternal hypertension, third trimester] Onset: 04-19-2022 Chronic Hypertension complicating ; childbirth and the puerperium (4 sources) Gestational [-induced] hypertension without significant proteinuria, unspecified trimester; Translations: [GEST HTN NO SIG PROTEINURIA UNS TRI] Onset: 06-18-2022 Episodic Inflammatory diseases of female pelvic organs (1 source) Acute vaginitis; Translations: [Acute vaginitis] Episodic Influenza (1 source) Influenza due to Influenza A virus with upper respiratory signs; Translations: [Influenza due to other identified influenza virus with other respiratory manifestations] Episodic Menstrual disorders (6 sources) Irregular menstruation, unspecified; Translations: [Irregular periods] Onset: 01-09-2022 Chronic Mood disorders (5 sources) Bipolar affective disorder, currently depressed, in full remission; Translations: [Bipolar disorder, in full remission, most recent episode depressed] Onset: 06-02-2018 06-02-2018 Chronic Nausea and vomiting (3 sources) Nausea; Translations: [Nausea] Episodic Nonspecific chest pain (1 source) Chest pain, unspecified; Translations: [CHEST PAIN UNSPECIFIED] Onset: 05-26-2022 Episodic Other aftercare (1 source) nursing home (current) use of insulin; Translations: [SCHEDULING ASSISTANT CURRENT USE OF INSULIN] Onset: 07-14-2022 Episodic Other circulatory disease (1 source) Elevated blood-pressure reading, without diagnosis of hypertension; Translations: [ELEVATED BP READING W/O DX HTN] Onset: 05-26-2022 Episodic Other complications of (3 sources) Maternal obesity complicating , childbirth and the puerperium, antepartum; Translations: [Obesity complicating , unspecified trimester] Onset: 05-04-2011 05-04-2011 Chronic Other complications of (1 source) Obesity complicating , third trimester; Translations: [OBESITY COMP THIRD TRI] Onset: 07-25-2022 Chronic Other complications of (2 sources) Abnormal findings on screening of mother; Translations: [Other abnormal findings on screening of mother] Onset: 07-20-2022 Episodic Other complications of (2 sources) Supervision of other high risk pregnancies, second trimester; Translations: [Supervision of other high risk pregnancies, second trimester] Onset: 05-18-2022 Episodic Other complications of (4 sources) Other specified related conditions, third trimester; Translations: [OTH SPEC PREG RELATED COND 3RD TRI] Onset: 07-19-2022 Episodic Other complications of (1 source) Smoking (tobacco) complicating , third trimester; Translations: [SMOKING TOBACCO COMP PREG 3RD TRI] Onset: 05-26-2022 Episodic Other complications of (1 source) Viral disease of mother during ; Translations: [Other viral diseases complicating , unspecified trimester] Episodic Other complications of (1 source) Vomiting of ; Translations: [Vomiting of , unspecified] Episodic Other complications of (1 source) Urinary tract infection in ; Translations: [Unspecified infection of urinary tract in , unspecified trimester] Episodic Other connective tissue disease (1 source) Other specified soft tissue disorders; Translations: [OTHER SPEC SOFT TISSUE DISORDERS] Onset: 07-25-2022 Episodic Other connective tissue disease (1 source) Disorder of soft tissue; Translations: [Other specified soft tissue disorders] Episodic Other ear and sense organ disorders (3 sources) Otitis externa; Translations: [Other otitis externa, right ear] Chronic Other female genital disorders (1 source) Abnormal uterine bleeding; Translations: [Abnormal uterine and vaginal bleeding, unspecified] Chronic Other infections; including parasitic (1 source) Infestation by Sarcoptes scabiei nan hominis; Translations: [Scabies] Episodic Other inflammatory condition of skin (1 source) Itching of skin; Translations: [Pruritus, unspecified] Episodic Other injuries and conditions due to external causes (2 sources) Wound discharge; Translations: [Other injury of unspecified body region, initial encounter] 05-25-2020 Episodic Other injuries and conditions due to external causes (1 source) History of fall; Translations: [History of falling] Episodic Other liver diseases (3 sources) Steatosis of liver; Translations: [Fatty (change of) liver, not elsewhere classified] Chronic Other nervous system disorders (1 source) Carpal tunnel syndrome of right wrist; Translations: [Carpal tunnel syndrome, right upper limb] Chronic Other nutritional; endocrine; and metabolic disorders (2 sources) Body mass index 40+ - severely obese; Translations: [Morbid (severe) obesity due to excess calories] Onset: 07-20-2022 Chronic Other nutritional; endocrine; and metabolic disorders (1 source) Obesity, unspecified; Translations: [OBESITY UNSPECIFIED] Onset: 06-01-2022 Chronic Other nutritional; endocrine; and metabolic disorders (1 source) Morbid obesity; Translations: [Morbid (severe) obesity due to excess calories] Chronic Other and delivery including normal (18 sources) state, incidental; Translations: [Encounter for supervision of normal , unspecified, second trimester] Onset: 01-04-2021 Episodic Other screening for suspected conditions (not mental disorders or infectious disease) (13 sources) Patient encounter status; Translations: [Ultrasound recheck of pyelectasis, antepartum] Onset: 05-04-2011 Resolved: 07-22-2022 05-04-2011 Episodic Other skin disorders (1 source) Acne vulgaris; Translations: [Acne vulgaris] Episodic Other upper respiratory disease (1 source) Nasal congestion Onset: 05-03-2023 Episodic Other upper respiratory infections (1 source) Chronic sinusitis; Translations: [Chronic sinusitis, unspecified] Chronic Other upper respiratory infections (7 sources) Acute pharyngitis, unspecified; Translations: [Acute upper respiratory infection, unspecified] Onset: 05-03-2023 Episodic Otitis media and related conditions (1 source) Otitis media; Translations: [Otitis media, unspecified, unspecified ear] Episodic Previous (2 sources) Maternal care for unspecified type scar from previous delivery; Translations: [Maternal care for low transverse scar from previous delivery] Onset: 07-14-2022 Episodic Residual codes; unclassified (4 sources) Gestation period, 35 weeks; Translations: [35 weeks gestation of ] Onset: 07-15-2022 Resolved: 07-22-2022 Episodic Residual codes; unclassified (3 sources) Postoperative state; Translations: [Other specified postprocedural states] Onset: 07-20-2022 Episodic Residual codes; unclassified (2 sources) Gestation period, 36 weeks; Translations: [36 weeks gestation of ] Onset: 07-20-2022 Resolved: 07-22-2022 Episodic Residual codes; unclassified (1 source) Other specified postprocedural states; Translations: [Other specified postprocedural states] Onset: 07-22-2022 Episodic Residual codes; unclassified (2 sources) 35 weeks gestation of ; Translations: [35 weeks gestation of ] Onset: 07-15-2022 Episodic Residual codes; unclassified (2 sources) 27 weeks gestation of ; Translations: [27 weeks gestation of ] Onset: 05-18-2022 Episodic Residual codes; unclassified (1 source) 36 weeks gestation of ; Translations: [36 WEEKS GESTATION OF ] Onset: 07-25-2022 Episodic Residual codes; unclassified (1 source) 34 weeks gestation of ; Translations: [34 WEEKS GESTATION OF ] Onset: 07-14-2022 Episodic Residual codes; unclassified (1 source) 33 weeks gestation of ; Translations: [33 WEEKS GESTATION OF ] Onset: 07-04-2022 Episodic Residual codes; unclassified (1 source) 32 weeks gestation of ; Translations: [32 WEEKS GESTATION OF ] Onset: 06-25-2022 Episodic Residual codes; unclassified (1 source) 31 weeks gestation of ; Translations: [31 WEEKS GESTATION OF ] Onset: 06-21-2022 Episodic Residual codes; unclassified (1 source) 29 weeks gestation of ; Translations: [29 WEEKS GESTATION OF ] Onset: 06-01-2022 Episodic Residual codes; unclassified (1 source) Edema, unspecified; Translations: [EDEMA UNSPECIFIED] Onset: 05-26-2022 Episodic Residual codes; unclassified (1 source) 28 weeks gestation of ; Translations: [28 WEEKS GESTATION OF ] Onset: 05-26-2022 Episodic Residual codes; unclassified (1 source) 38 weeks gestation of ; Translations: [38 WEEKS GESTATION OF ] Onset: 05-26-2022 Episodic Residual codes; unclassified (1 source) Acquired absence of other specified parts of digestive tract; Translations: [ACQ ABSENCE OTH PART DIGESTV TRACT] Onset: 05-26-2022 Episodic Residual codes; unclassified (1 source) Gestation period, 24 weeks; Translations: [24 weeks gestation of ] Episodic Residual codes; unclassified (1 source) Gestation period, 11 weeks; Translations: [11 weeks gestation of ] Episodic Residual codes; unclassified (1 source) Gestation period, 21 weeks; Translations: [21 weeks gestation of ] Episodic Residual codes; unclassified (1 source) History of uterine scar from previous surgery; Translations: [History of uterine scar from previous surgery] Episodic Residual codes; unclassified (1 source) Gestation period, 33 weeks; Translations: [33 weeks gestation of ] Episodic Spondylosis; intervertebral disc disorders; other back problems (3 sources) Low back pain; Translations: [Low back pain, unspecified] Onset: 05-16-2023 06-05-2023 Episodic Substance-related disorders (1 source) Nicotine dependence, cigarettes, uncomplicated; Translations: [NICOTINE DEPEND CIGARETTES UNCOMP] Onset: 05-26-2022 Chronic Thyroid disorders (7 sources) Hypothyroidism, unspecified; Translations: [Hypothyroidism] Onset: 09-12-2021 Chronic Unclassified (3 sources) OTH SPCF DIS/COND COMPL ; Translations: [OTH SPCF DIS/COND COMPL ] Onset: 06-01-2022 Unclassified (1 source) LOW BACK PAIN, UNSPECIFIED; Translations: [LOW BACK PAIN, UNSPECIFIED] Onset: 04-19-2022 Viral infection (2 sources) Enteroviral vesicular stomatitis with exanthem; Translations: [Enteroviral vesicular stomatitis with exanthem] Episodic Viral infection (1 source) Disease caused by 2019-nCoV; Translations: [COVID-19] Past or Other Problems Problem Classification Problem Date Documented Da te Episodic/Chronic E Codes: Natural/environment (1 source) Other and unspecified overexertion or strenuous movements or postures, initial encounter; Translations: [OTH AND UNS OVREXRT/STRN MVMT/POS INT] Onset: 03-22-2022 Episodic Immunizations and screening for infectious disease (8 sources) Contact with and (suspected) exposure to other viral communicable diseases; Translations: [Encounter for screening for infections with a predominantly sexual mode of transmission] Onset: 12-28-2021 Resolved: 04-13-2021 Episodic Mood disorders (4 sources) Mood disorders Onset: 11-30-2021 11-30-2021 Other aftercare (1 source) History and physical examination, follow-up; Translations: [Encounter for follow-up examination after completed treatment for conditions other than malignant neoplasm] Resolved: 03-01-2021 Episodic Other complications of (3 sources) Congenital abnormality of uterus in , childbirth and the puerperium; Translations: [Maternal care for unspecified congenital malformation of uterus, unspecified trimester] Onset: 05-04-2011 Resolved: 07-22-2022 05-04-2011 Episodic Other complications of (4 sources) Maternal tobacco use; Translations: [Smoking (tobacco) complicating , unspecified trimester] Onset: 05-04-2011 01-21-2015 Episodic Other complications of (4 sources) condition affecting obstetrical care of mother; Translations: [Maternal care for abnormalities of the heart rate or rhythm, unspecified trimester, not applicable or unspecified] Onset: 07-31-2011 07-31-2011 Episodic Other complications of (4 sources) Spotting complicating , second trimester; Translations: [SPOTTING COMP SECOND TRI] Onset: 05-04-2022 Episodic Other complications of (5 sources) Other specified related conditions, second trimester; Translations: [OTH SPEC PREG RELATED COND 2ND TRI] Onset: 04-11-2022 Episodic Other complications of (4 sources) depression; Translations: [Other mental disorders complicating , unspecified trimester] Onset: 11-30-2021 11-30-2021 Episodic Other female genital disorders (1 source) Other specified noninflammatory disorders of vagina; Translations: [OTH SPEC NONINFLAMMATORY D/O VAGINA] Onset: 05-24-2022 Episodic Other female genital disorders (1 source) Noninflammatory disorder of the vagina; Translations: [Other specified noninflammatory disorders of vagina] Resolved: 07-27-2021 Episodic Other gastrointestinal disorders (1 source) Constipation; Translations: [Other constipation] Resolved: 04-13-2021 Episodic Other injuries and conditions due to external causes (1 source) Traumatic AND/OR non-traumatic injury; Translations: [Other injury of unspecified body region, initial encounter] Resolved: 07-27-2021 Episodic Other lower respiratory disease (1 source) Dyspnea; Translations: [Other forms of dyspnea] Resolved: 07-27-2021 Episodic Other non-traumatic joint disorders (3 sources) Pain in right shoulder; Translations: [PAIN IN RIGHT SHOULDER] Onset: 03-19-2022 Episodic Polyhydramnios and other problems of amniotic cavity (4 sources) Oligohydramnios with problem; Translations: [Oligohydramnios, unspecified trimester, not applicable or unspecified] Onset: 09-25-2011 Resolved: 07-22-2022 09-25-2011 Episodic Residual codes; unclassified (1 source) 25 weeks gestation of ; Translations: [25 WEEKS GESTATION OF ] Onset: 05-10-2022 Episodic Residual codes; unclassified (1 source) 22 weeks gestation of ; Translations: [22 WEEKS GESTATION OF ] Onset: 04-19-2022 Episodic Residual codes; unclassified (1 source) Gestation period, 29 weeks; Translations: [29 weeks gestation of ] Resolved: 07-05-2021 Episodic Residual codes; unclassified (1 source) Gestation period, 31 weeks; Translations: [31 weeks gestation of ] Resolved: 07-05-2021 Episodic Residual codes; unclassified (1 source) Gestation period, 12 weeks; Translations: [12 weeks gestation of ] Resolved: 03-01-2021 Episodic Residual codes; unclassified (1 source) Gestation period, 16 weeks; Translations: [16 weeks gestation of ] Resolved: 04-13-2021 Episodic Sprains and strains (2 sources) Strain of unspecified muscle, fascia and tendon at shoulder and upper arm level, right arm, initial encounter; Translations: [STRN UNS MSC F TND SHLDR UA RA INIT] Onset: 03-22-2022 Episodic Unclassified (1 source) OT SPCF DIS/COND COMPL ; Translations: [[facility] SPCF DIS/COND COMPL ] Onset: 05-29-2022 Unclassified (1 source) abnormal result; Translations: [Other nonspecific abnormal finding] Unclassified (1 source) Myalgic encephalomyelitis/chr onic fatigue syndrome; Translations: [Myalgic encephalomyelitis/chr onic fatigue syndrome] Resolved: 07-20-2021 Unclassified (1 source) Suspected COVID-19 virus infection Z20.822 Unclassified (4 sources) Onset: 05-03-2023 05-03-2023 Results Test Name Value Interpretation Reference Range Facility BASIC METABOLIC PANLon 05-16 Anion gap [Moles/Vol] 10 mmol/L Normal 5-15 Pro [facility] Comment on above: Performed By: #### B PHYLLIS CBCA #### [facility] ([id number]) [address] [place] [address] 02009 Calcium [Mass/Vol] 8.9 mg/dL Normal 8.5-10.5 [facility] Comment on above: Performed By: #### B PHYLLIS, CBCA #### [facility] ([id number]) [address] [place] [address] 50069 Chloride [Moles/Vol] 107 mmol/L Normal 98-109 [facility] Comment on above: Performed By: #### B JOSE FERGUSON #### [facility] ([id number]) [address] [place] [address] 61735 CO2 [Moles/Vol] 18 mmol/L Low 22-32 [facility] Comment on above: Performed By: #### B PHYLLIS CBCA #### [facility] ([id number]) [address] [place] [address] 20660 Creatinine [Mass/Vol] 0.58 mg/dL Normal 0.40-1.00 [facility] Comment on above: Result Comment: METH OD TRACEABLE TO IDMS STANDARD Performed By: #### B JOSE FERGUSON #### [facility] ([id number]) [address] [place] [address] 45602 eGFR (CKD-EPI) NON-RACE DEPENDENT >90 Normal >59 [facility] Comment on above: Result Comment: Reported eGFR is based on the CKD-EPI 1 equation that does not use a race coefficient. Performed By: #### B JOSE FERGUSON #### [facility] ([id number]) [address] [place] [address] 49419 Glucose [Mass/Vol] 109 mg/dL High 65-99 [facility] Comment on above: Performed By: #### B JOSE FERGUSON #### [facility] ([id number]) [address] [place] [address] 77601 Potassium [Moles/Vol] 3.3 mmol/L Low 3.5-5.0 [facility] Comment on above: Performed By: #### B JOSE FERGUSON #### [facility] ([id number]) [address] [place] [address] 06038 Sodium [Moles/Vol] 135 mmol/L Normal 134-146 [facility] Comment on above: Performed By: #### B PHYLLIS CBCA #### [facility] ([id number]) [address] [place] [address] 88228 Urea nitrogen [Mass/Vol] 16 mg/dL Normal 5-23 [facility] Comment on above: Performed By: #### B PHYLLIS, CBCA #### [facility] ([id number]) [address] [place] [address] 95214 CBC AND AUTO DIFFon 05-16- 24 ABSOLUTE BASOPHIL 0.1 X10E9/L Normal 0.0-0.2 [facility] Comment on above: Performed By: #### B PHYLLIS, CBCA #### [facility] ([id number]) [address] [place] [address] 02261 ABSOLUTE NEUTROPHIL 4.6 X10E9/L Normal 1.5-6.6 [facility] Comment on above: Performed By: #### B PHYLLIS, CBCA #### [facility] ([id number]) [address] [place] [address] 12180 Basophils/100 WBC (Bld) 0.7 % Normal [facility] Comment on above: Performed By: #### B PHYLLIS, CBCA #### [facility] ([id number]) [address] [place] [address] 97320 Eosinophils (Bld) [#/Vol] 0.3 10*3/uL Normal 0.0-0.4 [facility] Comment on above: Performed By: #### B MP, CBCA #### [facility] ([id number]) [address] [place] [address] 30317 Eosinophils/100 WBC (Bld) 4.4 % Normal [facility] Comment on above: Performed By: #### B PHYLLIS, CBCA #### [facility] ([id number]) [address] [place] [address] 62597 Erythrocyte distribution width (RBC) [Ratio] 13.3 % Normal 11.5-15.0 [facility] Comment on above: Performed By: #### B MP, CBCA #### [facility] ([id number]) [address] [place] [address] 82259 Hematocrit (Bld) [Volume fraction] 40.5 % Normal 35-47 [facility] Comment on above: Performed By: #### B MP, CBCA #### [facility] ([id number]) [address] [place] [address] 98813 Hemoglobin (Bld) [Mass/Vol] 13.8 g/dL Normal 11.7-15.5 [facility] Comment on above: Performed By: #### B MP, CBCA #### [facility] ([id number]) [address] [place] [address] 65350 Lymphocytes (Bld) [#/Vol] 2.0 10*3/uL Normal 1.0-3.5 [facility] Comment on above: Performed By: #### B MP, CBCA #### [facility] ([id number]) [address] [place] [address] 55320 Lymphocytes/100 WBC (Bld) 26.3 % Normal [facility] Comment on above: Performed By: #### B MP, CBCA #### [facility] ([id number]) [address] [place] [address] 67663 MCH (RBC) [Entitic mass] 27.9 pg Normal 27-34 [facility] Comment on above: Performed By: #### B MP, CBCA #### [facility] ([id number]) [address] [place] [address] 13429 MCHC (RBC) [Mass/Vol] 34.0 g/dL Normal 32-36 [facility] Comment on above: Performed By: #### B MP, CBCA #### [facility] ([id number]) [address] [place] [address] 39524 MCV (RBC) [Entitic vol] 82 fL Normal 80-100 [facility] Comment on above: Performed By: #### B MP, CBCA #### [facility] ([id number]) [address] [place] [address] 78069 Monocytes (Bld) [#/Vol] 0.5 10*3/uL Normal 0-0.9 [facility] Comment on above: Performed By: #### B MP, CBCA #### [facility] ([id number]) [address] [place] [address] 47940 Monocytes/100 WBC (Bld) 6.9 % Normal [facility] Comment on above: Performed By: #### B MP, CBCA #### [facility] ([id number]) [address] [place] [address] 61855 Neutrophils/100 WBC (Bld) 61.7 % Normal [facility] Comment on above: Performed By: #### B MP, CBCA #### [facility] ([id number]) [address] [place] [address] 29953 Platelet mean volume (Bld) [Entitic vol] 8.4 fL Normal 7-12 [facility] Comment on above: Performed By: #### B MP, CBCA #### [facility] ([id number]) [address] [place] [address] 12748 Platelets (Bld) [#/Vol] 247 10*3/uL Normal 150-450 [facility] Comment on above: Performed By: #### B MP, CBCA #### [facility] ([id number]) [address] [place] [address] 48957 RBC COUNT 4.93 X10E12/L Normal 3.80-5.20 [facility] Comment on above: Performed By: #### B MP, CBCA #### [facility] ([id number]) [address] [place] [address] 08683 WBC (Bld) [#/Vol] 7.5 10*3/uL Normal 4.0-11.0 [facility] Comment on above: Performed By: #### B MP, CBCA #### [facility] ([id number]) [address] [place] [address] BRAIN WO CONTon 4 CT BRAIN WO CONT CT BRAIN WO CONT CT BRAIN WO CONT: 05/16/2023 10:46 AM Clinical: Headache with blurred vision. Facial numbness. EXAM: NONCONTRAST BRAIN CT Comparison: CT 03/18/2022 Procedure: Multi-detector CT performed through the brain without IV contrast. Automatic exposure control utilized. All CT scans at this facility use dose modulation, iterative reconstruction, and/or weight based dosing when appropriate to reduce radiation dose to as low as reasonably achievable. Findings: There is no intracranial hemorrhage, extra-axial fluid collection, mass effect, midline shift, or hydrocephalus. Changes of acute ischemia may be delayed on CT. If there is clinical concern for acute ischemia or other occult abnormality, consider MRI. IMPRESSION: * No acute intracranial findings. Finalized by Servando De Leon MD on 05/16/2023 10:57 AM Normal [facility] HCG ( test) Ql (U)o n 05-16-2023 Beta HCG ( test) Ql (U) Negative Normal NEG [facility] Comment on above: Performed By: #### 2 106-3 #### [facility] ([id number]) [address] [place] [address] 71742 URN MACROSCOPIC NURon 2023 BILIRUBIN TADEO Negative Normal NEG [facility] Comment on above: Performed By: #### N UM #### [facility] ([id number]) [address] [place] [address] 00685 BLOOD/HGB TADEO Negative Normal NEG [facility] Comment on above: Performed By: #### N UM #### [facility] ([id number]) [address] [place] [address] 63118 GLUCOSE TADEO Negative Normal NEG [facility] Comment on above: Performed By: #### N UM #### [facility] ([id number]) [address] [place] [address] 68931 KETONES TADEO Negative Normal NEG [facility] Comment on above: Performed By: #### N UM #### [facility] ([id number]) [address] [place] [address] 47495 LEUKOCYTE ESTERASE TADEO Negative Normal NEG [facility] Comment on above: Performed By: #### N UM #### [facility] ([id number]) [address] [place] [address] 75112 NITRITE TADEO Negative Normal NEG [facility] Comment on above: Performed By: #### N UM #### [facility] ([id number]) [address] [place] [address] 53994 PH TADEO 6.5 Normal 5.0-8.5 [facility] Comment on above: Performed By: #### N UM #### [facility] ([id number]) [address] [place] [address] 51423 PROTEIN TADEO Negative Normal NEG [facility] Comment on above: Performed By: #### N UM #### [facility] ([id number]) [address] [place] [address] [place] [address] SPECIFIC GRAVITY TADEO 1.025 Normal 1.003-1.035 [facility] Comment on above: Performed By: #### N UM #### [facility] ([id number]) [address] [place] [address] [place] [address] UROBILINOGEN TADEO 0.2 eu/dL Normal <1.1 [facility] Comment on above: Performed By: #### N UM #### [facility] ([id number]) [address] [place] [address] [place] [address] COVID + FLU Quick Testingon 02-05-2023 SARS-CoV-2 (COVID-19) RNA SARANYA+probe Ql (Unsp spec) Negative [employer] [facility] [employer] Other COVID + FLU Quick Testing Negative [employer] Other Aerobic Cultureon 12-22-2022 Aerobic Culture Comment tube 2 No Growth 2 Days Comment tube 2 No Anaerobes Isolated 3 Days Comment tube 2 Gram Stain Result No White Blood Cells Seen No Bacteria Seen PERFORMED BY: [address] [address] PATHOLOGIST STORAGE CENTER MANAGER ALLEN COATES M.D. [facility] Comment on above: Performed By: #### C BC, PT, PTT #### [facility] [address] [place] [address] [place] CSF PCR Panelon 12-22-2022 CSF PCR Panel Comment tube 2 Cytomegalovirus Not detected Cryptococcus neoformans or gattii 9002 Not detected Escherichia coli K1 Not detected Enterovirus Not detected Haemophilus influenzae (reported as H flu) Not detected Human herpesvirus 6 Not detected Herpes simplex virus 1 Not detected Herpes simplex virus 2 DNA [Presence] in Cerebral spinal fluid by SARANYA with non-probe detection Not detected Listeria monocytogenes (reported as listeriosis) Not detected Neisseria meningitidis - reported as meningococcal disease Not detected Human parechovirus Not detected Streptococcus pneumoniae - reported at ISP Not detected Group B Strep (Streptococcus agalactiae) Not detected Varicella zoster virus Not detected PERFORMED BY: [place] [id number] PATHOLOGIST STORAGE CENTER MANAGER ALLEN COATES M.D. [facility] Comment on above: Performed By: #### C SF PCR PANEL #### [facility] [address] [place] [address] [place] Cell Count Differential,CSFo n 12-22-2022 Appearance, CSF Clear Normal Clear [facility] Comment on above: Order Comment: Comme nt tube 1 Performed By: #### C SFCCDIFF #2, CSF TP #2, CSF GLU #2, CSF GLU, CSF TP, GS, AERC, CSFCCDIFF #### [facility] [address] [place] [address] Order Comment: Comme nt tube 4 Color, CSF Colorless Normal Colorless [facility] Comment on above: Order Comment: Comme nt tube 1 Performed By: #### C SFCCDIFF #2, CSF TP #2, CSF GLU #2, CSF GLU, CSF TP, GS, AERC, CSFCCDIFF #### [facility] [address] [place] [address] Order Comment: Comme nt tube 4 CSF Supernatant Color Colorless Normal Colorless [facility] Comment on above: Order Comment: Comme nt tube 1 Performed By: #### C SFCCDIFF #2, CSF TP #2, CSF GLU #2, CSF GLU, CSF TP, GS, AERC, CSFCCDIFF #### [facility] [address] [place] [address] Order Comment: Comme nt tube 4 CSF Volume, Total 29.4 mL [facility] Comment on above: Order Comment: Comme nt tube 1 Performed By: #### C SFCCDIFF #2, CSF TP #2, CSF GLU #2, CSF GLU, CSF TP, GS, AERC, CSFCCDIFF #### [facility] [address] [place] [address] Order Comment: Comme nt tube 4 Lymphocytes, CSF 4 [facility] Comment on above: Order Comment: Comme nt tube 1 Result Comment: The reference interval and other method performance specifications have not been established for this body fluid. The test result must be integrated into the clinical context for interpretation. Performed By: #### C SFCCDIFF #2, CSF TP #2, CSF GLU #2, CSF GLU, CSF TP, GS, AERC, CSFCCDIFF #### [facility] [address] [place] [address] RBC, CSF 2 /uL [facility] Comment on above: Order Comment: Comme nt tube 1 Result Comment: The reference interval and other method performance specifications have not been established for this body fluid. The test result must be integrated into the clinical context for interpretation. Performed By: #### C SFCCDIFF #2, CSF TP #2, CSF GLU #2, CSF GLU, CSF TP, GS, AERC, CSFCCDIFF #### [facility] [address] [place] [address] TNC, CSF 1 /uL Normal 0-5 [facility] Comment on above: Order Comment: Comme nt tube 1 Performed By: #### C SFCCDIFF #2, CSF TP #2, CSF GLU #2, CSF GLU, CSF TP, GS, AERC, CSFCCDIFF #### [address] Order Comment: Comme nt tube 4 Tube Number Tested, CSF Tube Number: 1 Normal [facility] Comment on above: Order Comment: Comme nt tube 1 Result Comment: PERF ORMED BY: [place] [address] PATHOLOGIST STORAGE CENTER MANAGER ALLEN COATES M.D. Performed By: #### C SFCCDIFF #2, CSF TP #2, CSF GLU #2, CSF GLU, CSF TP, GS, AERC, CSFCCDIFF #### [address] Cell Count Differential,CSF #2on 12-22-2022 Lymphocytes, CSF 7 Normal [facility] Comment on above: Order Comment: Comme nt tube 4 Result Comment: The reference interval and other method performance specifications have not been established for this body fluid. The test result must be integrated into the clinical context for interpretation. Performed By: #### C SFCCDIFF #2, CSF TP #2, CSF GLU #2, CSF GLU, CSF TP, GS, AERC, CSFCCDIFF #### [address] RBC, CSF 1 /uL Normal [facility] Comment on above: Order Comment: Comme nt tube 4 Result Comment: The reference interval and other method performance specifications have not been established for this body fluid. The test result must be integrated into the clinical context for interpretation. Performed By: #### C SFCCDIFF #2, CSF TP #2, CSF GLU #2, CSF GLU, CSF TP, GS, AERC, CSFCCDIFF #### [facility] [address] [place] [address] Tube Number Tested, CSF Tube Number: 4 Normal [facility] Comment on above: Order Comment: Comme nt tube 4 Result Comment: PERF ORMED BY: [place] [address] PATHOLOGIST STORAGE CENTER MANAGER ALLEN COATES M.D. Performed By: #### C SFCCDIFF #2, CSF TP #2, CSF GLU #2, CSF GLU, CSF TP, GS, AERC, CSFCCDIFF #### [address] Cerebrospinal fluid post-adams trifugation appearance determinationOrdered By: Razia Muller on 12-22-2022 Appearance (Spun CSF) Colorless Colorless [facility] Cerebrospinal fluid sample t ube volume measurementOrdered By: Razia Muller on 12-22-2022 Specimen volume (CSF) 29.4 mL [facility] Color CSFOrdered By: Razia longo on 12-22-2022 Color (CSF) Colorless Colorless [facility] Glucose, CSF #2on 12-22-2022 Glucose, CSF #2 71 mg/dL High 40-70 [facility] Comment on above: Order Comment: Comme nt tube 4 Performed By: #### C BC, PT, PTT #### [facility] [address] [place] [address] Glucose, Spinal Fluidon Glucose, Spinal Fluid 73 mg/dL High 40-70 [facility] Comment on above: Order Comment: Comme nt tube 1 Performed By: #### C SFCCDIFF #2, CSF TP #2, CSF GLU #2, CSF GLU, CSF TP, GS, AERC, CSFCCDIFF #### [facility] [address] [place] [address] Gram Stainon 12-22-2022 Microscopic observation Gram stain Nom (Unsp spec) Comment tube 2 Gram Stain Result No White Blood Cells Seen No Bacteria Seen PERFORMED BY: [place] [address] PATHOLOGIST STORAGE CENTER MANAGER ALLEN COATES M.D. Normal [facility] Comment on above: Performed By: #### C SFCCDIFF #2, CSF TP #2, CSF GLU #2, CSF GLU, CSF TP, GS, AERC, CSFCCDIFF #### [place] [id number] [facility] IR guided lumbar puncture LP on 12-22-2022 IR guided lumbar puncture LP [facility] Main [place] [address] [place] [address] Interventional Radiology Rpt Signed Patient: Yani Bang MR#: [id number] : 1990 Acct:[id number] Age/Sex: 32 / F ADM Date: 12/22/22 Loc: XD Room: Type: [facility] Attending Dr: Razia EVANGELISTA Copies to: TONJA Jimenez Ordering Provider: TONJA Jimenez Date of Service: 12/22/22 IR/IR guided lumbar puncture LP: LP IN IR IR guided lumbar puncture LP 12/22/2022 7:59 AM SIGNS AND SYMPTOMS: Chronic headaches, visual changes, previous outside MRI suggest intracranial hypertension INFORMED CONSENT: Reason for procedure was discussed with the patient. The procedure expectations risks benefits options and alternatives were discussed. All the questions were answered. The patient understood the results cannot be guaranteed. The procedure is indicated and risks were acceptable. Consent was obtained. PROCEDURE: A fluoroscopically guided lumbar puncture was performed at the L2-L3 level on the right via a right sublaminar approach. The patient was prepped and draped in a sterile manner. 5 mL of lidocaine 1% without epinephrine were used for local anesthesia. A 22-gauge spinal needle was introduced into the subarachnoid space on the right atL2-L3 via a right sublaminar approach. With the patient in the left lateral decubitus position the opening pressure was measured at 26.5 cm CSF. After removal of 29 mL of clear CSF in 4 tubes, the closing pressure measures 19.5 cm CSF. The needle was removed and hemostasis was obtained using manual pressure. Cumulative Air Kerma in mGy: 93.5 mGy The patient tolerated the procedure well. No immediate complications were detected. IR/IR guided lumbar puncture LP IMPRESSION: Successful fluoroscopically guided lumbar puncture yielding 29 mL of clear CSF 4 tubes. The opening pressure measured 26.5 cm CSF a closing pressure measures 19.5 similar CSF. Impression dictated by: Vernon Lin M.D.12/22/2022 1:07 PM Dictation Location: [facility]- Transcribed By: PATT 12/22/22 911 Dictated By: Vernon Lin II, MD 12/22/22 2143 Signed By: 12/22/221306 [facility] Jaylan 12-22-2022 L ---- Specimen: [id number] Received: 12/22/22 Status: TERRANCE Perla Num: [id number] Spec Type: Cytology Subm Dr: Razia Muller APRN-FINISH PHOTOGRAPHER-Kaushik Tissues: A CSF (CSF) Procedures: Cyto Prepstain, DIFF QWIK, PAPSTN Age/ Patient Sex Location Account Attending Physician Yani Bang 32/F XD [id number] Razia Muller APRN-FINISH PHOTOGRAPHER-C SPEC NUM: [id number] RECD: 12/22/22 STATUS: TERRANCE PERLA NUM: [id number] TOMASA: 12/22/[address] [facility] [address]: JON Jimenez-Kaushik ENTERED: 12/22/22 [facility] DR: Vernon Lin II, MD SPEC TYPE: Cytology DEPT: CNG ENTERED BY: [id number] RECV BY: [id number] ORDERED: Cyto Prepstain, DIFF QWIK, PAPSTN ORDERED: Cyto Prepstain, DIFF QWIK, PAPSTN Pathological Diagnosis Cerebrospinal fluid (CSF), cytology: - Negative for malignancy Note: Smears show rare degenerated cells in a clear background. Clinical Information R/O intracranial HTN, Chronic HOOVER, vision changes Gross Description Received is 7 cc colorless clear unfixed fluid said to have been obtained as Lumbar Puncture. Cytospin slides are stained with Papanicolaou and Diff Quik-stains. (SS/nh) Specimen: [id number] Received: 12/22/22 Status: TERRANCE Perla Num: [id number] Spec Type: Cytology Subm Dr: Razia Muller, OFFICE COORDINATOR RECEPTIONIST-FINISH PHOTOGRAPHER-C Tissues: A CSF (CSF) Procedures: Cyto Prepstain, DIFF QWIK, PAPSTN Patient: Yani Bang [id number] (Continued) Signed (signature on file) Dimas De Anda MD 12/26/22 0905 Normal [facility] Manual cerebrospinal fluid e rythrocytes count (number/volume)Ordered By: Razia Muller on 12-22-2022 RBC Manual cnt (CSF) [#/Vol] 1 /uL [facility] Comment on above: The reference interv al and other method performance specifications have not been established for this body fluid. The test result must be integrated into the clinical context for interpretation. No Panel InformationOrdered By: Razia Muller on 12-22-2022 CSF Appearance Clear Clear [facility] CSF Eosinophils N/A [facility] CSF Lymphocytes 7 [facility] Comment on above: The reference interv al and other method performance specifications have not been established for this body fluid. The test result must be integrated into the clinical context for interpretation. CSF Monocytes N/A [facility] CSF Neutrophils N/A [facility] CSF Tube Number Tube number: 4 [facility] Nucleated cells [#/volume] i n Cerebral spinal fluid by Manual countOrdered By: Razia Muller on 12-22-2022 Nucleated cells Manual cnt (CSF) [#/Vol] 0.001 10*3/uL 0-5 [facility] Total Protein, CSF #2on 09-0 Total Protein, CSF #2 31 mg/dL Normal 15-45 [facility] Comment on above: Order Comment: Comme nt tube 4 Result Comment: PERF ORMED BY: [place] [id number] PATHOLOGIST [employer] MANA[employer] ALLEN COATES M.D. Performed By: #### C BC, PT, PTT #### [address] Total Protein, Spinal Fluido n 12-22-2022 Total Protein, Spinal Fluid 34 mg/dL Normal 15-45 [facility] Comment on above: Order Comment: Comme nt tube 1 Result Comment: PERF ORMED BY: [place] [address] PATHOLOGIST [employer] C[employer] MANAGER ALLEN COATES M.D. Performed By: #### C BC, PT, PTT #### [facility] [address] [place] [address] Activated partial thrombopla stin time (aPTT) in platelet poor plasma by coagulation aOrdered By: Razia Muller on 12-20-2022 aPTT Coag (PPP) [Time] 32.8 s 25.1-36.5 [facility] Basophils Auto (Bld) [#/Vol] Ordered By: Razia Muller on 12-20-2022 Basophils (Bld) [#/Vol] 0.0 10*3/uL 0.0-0.2 [facility] Basophils/100 WBC Auto (Bld) Ordered By: Razia Muller on 12-20-2022 Basophils/100 WBC (Bld) 0.5 % . [facility] Complete Blood Count Auto Di ffon 12-20-2022 Basophils (Bld) [#/Vol] 0.0 10*3/uL Normal 0.0-0.2 [facility] Comment on above: Result Comment: PERF ORMED BY: [place] [address] PATHOLOGIST [employer] MANA[employer] ALLEN COATES M.D. Performed By: #### C BC, PT, PTT #### [place] [address] [place] Basophils/100 WBC (Bld) 0.5 % Normal . [facility] Comment on above: Performed By: #### C BC, PT, PTT #### [address] Eosinophils (Bld) [#/Vol] 0.2 10*3/uL Normal 0.0-0.45 [facility] Comment on above: Performed By: #### C BC, PT, PTT #### [address] Eosinophils/100 WBC (Bld) 3.2 % Normal . [facility] Comment on above: Performed By: #### C BC, PT, PTT #### [facility] [address] [place] [address] [place] Erythrocyte distribution width (RBC) [Ratio] 13.9 % Normal 11.9-15.3 [facility] Comment on above: Performed By: #### C BC, PT, PTT #### [place] [address] [place] Hematocrit (Bld) [Volume fraction] 40.9 % Normal 34.0-46.4 [facility] Comment on above: Performed By: #### C BC, PT, PTT #### [facility] [address] [place] [address] [place] Hemoglobin (Bld) [Mass/Vol] 13.6 g/dL Normal 11.8-15.4 [facility] Comment on above: Performed By: #### C BC, PT, PTT #### [place] [address] [place] Lymphocytes (Bld) [#/Vol] 2.1 10*3/uL Normal 1.00-4.8 [facility] Comment on above: Performed By: #### C BC, PT, PTT #### [address] Lymphocytes/100 WBC (Bld) 29.1 % Normal . [facility] Comment on above: Performed By: #### C BC, PT, PTT #### [facility] [address] MCH (RBC) [Entitic mass] 27.6 pg Normal 24.7-34.3 [facility] Comment on above: Performed By: #### C BC, PT, PTT #### [address] MCV (RBC) [Entitic vol] 83.0 fL Normal 80-100 [facility] Comment on above: Performed By: #### C BC, PT, PTT #### [address] Mean Corpuscular HGB Conc 33.2 g/dL Normal 32.0-35.0 [facility] Comment on above: Performed By: #### C BC, PT, PTT #### [address] Monocytes (Bld) [#/Vol] 0.5 10*3/uL Normal 0.0-0.8 [facility] Comment on above: Performed By: #### C BC, PT, PTT #### [address] Monocytes/100 WBC (Bld) 6.3 % Normal . [facility] Comment on above: Performed By: #### C BC, PT, PTT #### [address] Neutrophils (Bld) [#/Vol] 4.4 10*3/uL Normal 1.8-7.7 [facility] Comment on above: Performed By: #### C BC, PT, PTT #### [place] [id number] [place] Neutrophils/100 WBC (Bld) 60.9 % Normal . [facility] Comment on above: Performed By: #### C BC, PT, PTT #### [address] NRBC% 0.1 /100{WBC} Normal 0-0.5 [facility] Comment on above: Performed By: #### C BC, PT, PTT #### [address] Platelet mean volume (Bld) [Entitic vol] 8.1 fL Normal 6.3-10.7 [facility] Comment on above: Performed By: #### C BC, PT, PTT #### [address] Platelets (Bld) [#/Vol] 222 10*3/uL Normal 150-450 [facility] Comment on above: Performed By: #### C BC, PT, PTT #### [address] RBC (Bld) [#/Vol] 4.93 10*6/uL Normal 3.60-5.00 [facility] Comment on above: Performed By: #### C BC, PT, PTT #### [address] WBC (Bld) [#/Vol] 7.3 10*3/uL Normal 3.8-11.6 [facility] Comment on above: Performed By: #### C BC, PT, PTT #### [address] Eosinophils Auto (Bld) [#/Vo l]Ordered By: Razia Muller on 12-20-2022 Eosinophils (Bld) [#/Vol] 0.2 10*3/uL 0.0-0.45 [facility] Eosinophils/100 WBC Auto (Bl d)Ordered By: Razia Muller on 12-20-2022 Eosinophils/100 WBC (Bld) 3.2 % . [facility] Erythrocyte distribution wid th Auto (RBC) [Ratio]Ordered By: Razia Muller on 12-20-2022 Erythrocyte distribution width (RBC) [Ratio] 13.9 % 11.9-15.3 [facility] Hematocrit Auto (Bld) [Volum e fraction]Ordered By: Razia Muller on 12-20-2022 Hematocrit (Bld) [Volume fraction] 40.9 % 34.0-46.4 [facility] Hemoglobin [Mass/volume] in BloodOrdered By: Razia Muller on 12-20-2022 Hemoglobin (Bld) [Mass/Vol] 13.6 g/dL 11.8-15.4 [facility] INR in Platelet poor plasma by Coagulation assayOrdered By: Razia Muller on 12-20-2022 INR Coag (PPP) [Relative time] 1.0 {INR} [facility] Comment on above: INR Therapeutic Rang e A) Pre- and Peroperative OAT started two weeks before surgery. NOT HIP SURGERY: 1.5 - 2.5 HIP SURGERY: 2 - 3B) Primary and secondary prevention of venous THROMBOSIS: 2 - 3C) Active venous thrombosis, pulmonary embolismand prevention of recurrent venous thrombosis: 2 - 3D) Prevention of arterial thromboembolismincluding patients with mechanical heart valves: 3 - 4.5 Laboratory - CoagulationOrde red By: Razia Muller on 12-20-2022 PT Coag (PPP) [Time] 11.1 s 9.0-12.9 [facility] Leukocytes [#/volume] correc burke for nucleated erythrocytes in Blood by Automated counOrdered By: Razia Muller on 12-20-2022 WBC corrected for nucl RBC Auto (Bld) [#/Vol] 7.3 10*3/uL 3.8-11.6 [facility] Lymphocytes Auto (Bld) [#/Vo l]Ordered By: Razia Muller on 12-20-2022 Lymphocytes (Bld) [#/Vol] 2.1 10*3/uL 1.00-4.8 [facility] Lymphocytes/100 WBC Auto (Bl d)Ordered By: Razia Muller on 12-20-2022 Lymphocytes/100 WBC (Bld) 29.1 % . [facility] MCH Auto (RBC) [Entitic mass ]Ordered By: Razia Muller on 12-20-2022 MCH (RBC) [Entitic mass] 27.6 pg 24.7-34.3 [facility] MCHC Auto (RBC) [Mass/Vol]Or dered By: Razia Muller on 12-20-2022 MCHC (RBC) [Mass/Vol] 33.2 g/dL 32.0-35.0 [facility] MCV Auto (RBC) [Entitic vol] Ordered By: Razia Muller on 12-20-2022 MCV (RBC) [Entitic vol] 83.0 fL 80-100 [facility] Monocytes Auto (Bld) [#/Vol] Ordered By: Razia Muller on 12-20-2022 Monocytes (Bld) [#/Vol] 0.5 10*3/uL 0.0-0.8 [facility] Monocytes/100 WBC Auto (Bld) Ordered By: Razia Muller on 12-20-2022 Monocytes/100 WBC (Bld) 6.3 % . [facility] Neutrophils Auto (Bld) [#/Vo l]Ordered By: Razia Muller on 12-20-2022 Neutrophils (Bld) [#/Vol] 4.4 10*3/uL 1.8-7.7 [facility] Neutrophils/100 WBC Auto (Bl d)Ordered By: Razia Muller on 12-20-2022 Neutrophils/100 WBC (Bld) 60.9 % . [facility] Nucleated erythrocytes [Pres ence] in Blood by Automated countOrdered By: Razia Muller on 12-20-2022 Nucleated RBC Auto Ql (Bld) 0.1 /100{WBC} 0-0.5 [facility] Partial Thromboplastin Timeo n 12-20-2022 aPTT Coag (Bld) [Time] 32.8 s Normal 25.1-36.5 [facility] Comment on above: Result Comment: PERF ORMED BY: [place] [address] PATHOLOGIST [employer] MANA[employer] ALLEN COATES M.D. Performed By: #### C BC, PT, PTT #### [address] Platelet mean volume Auto (B ld) [Entitic vol]Ordered By: Razia Renzo on 12-20-2022 Platelet mean volume (Bld) [Entitic vol] 8.1 fL 6.3-10.7 [facility] Platelets Auto (Bld) [#/Vol] Ordered By: Razia Renzo on 12-20-2022 Platelets (Bld) [#/Vol] 222 10*3/uL 150-450 [facility] Prothrombin Time INRon 12-20 INR Coag (PPP) [Relative time] 1.0 {INR} Normal [facility] Comment on above: Result Comment: INR Therapeutic Range A) Pre- and Peroperative OAT started two weeks before surgery. NOT HIP SURGERY: 1.5 - 2.5 HIP SURGERY: 2 - 3 B) Primary and secondary prevention of venous THROMBOSIS: 2 - 3 C) Active venous thrombosis, pulmonary embolism and prevention of recurrent venous thrombosis: 2 - 3 D) Prevention of arterial thromboembolism including patients with mechanical heart valves: 3 - 4.5 Performed By: #### C BC, PT, PTT #### [facility] [address] PT Coag (PPP) [Time] 11.1 s Normal 9.0-12.9 [facility] Comment on above: Performed By: #### C BC, PT, PTT #### [facility] [address] RBC Auto (Bld) [#/Vol]Ordere d By: Razia Muller on 12-20-2022 RBC (Bld) [#/Vol] 4.93 10*6/uL 3.60-5.00 [facility] WBC Auto (Bld) [#/Vol]Ordere d By: Razia Muller on 12-20-2022 WBC (Bld) [#/Vol] 7.3 10*3/uL 3.8-11.6 [facility] Rule Out Grp.B Strepon 07-23 Rule Out Grp.B Strep Specimen Descriptio n .VAGINA Culture NEGATIVE FOR GROUP B STREPTOCOCCI Report Status FINAL 07/23/2022 Normal [facility] Comment on above: Performed By: #### N ATER #### [facility] [address] [place] [id number] [employer] Operator: Gideon Bullock MD POC Glucose Fingerstickon Glucose [Mass/Vol] 85 mg/dL 65 - 105 mg/dL [facility] C.trachomatis N.gonorrhoeae DNA, Urineon 07-21-2022 Chlamydia sp DNA SARANYA+probe Ql (U) Negative NEGATIVE [facility] Comment on above: CHLAMYDIA TRACHOMATI S DNA not detected by nucleic acid amplification. This test is intended for medical purposes only and is not valid for the evaluation of suspected sexual abuse or for other forensic purposes. In certain contexts, culture may be required to meet applicable laws and regulations for diagnosis of C. trachomatis and N. gonorrhoeae infections. Per 2014 CDC recommendations, this test does not include confirmation of positive results by an alternative nucleic acid target. N. gonorrhoeae DNA SARANYA+probe Ql (U) Negative NEGATIVE [facility] Comment on above: NEISSERIA GONORRHOEA E DNA not detected by nucleic acid amplification. This test is intended for medical purposes only and is not valid for the evaluation of suspected sexual abuse or for other forensic purposes. In certain contexts, culture may be required to meet applicable laws and regulations for diagnosis of C. trachomatis and N. gonorrhoeae infections. Per 2014 CDC recommendations, this test does not include confirmation of positive results by an alternative nucleic acid target. Specimen Description .URINE [facility] CBC auto differentialon 06-23 Absolute Eos # [facility] Absolute Immature Granulocyte 0.12 [facility] Absolute Lymph # 1.21 [facility] Absolute [place] # 0.69 [facility] Basophils (Bld) [#/Vol] 0.03 10*3/uL [facility] Basophils/100 WBC (Bld) 0 % 0 - 2 % [facility] Eosinophils/100 WBC (Bld) 0 % Low 1 - 4 % [facility] Hematocrit (Bld) [Volume fraction] 33.5 % Low 36.3 - 47.1 % [facility] Hemoglobin (Bld) [Mass/Vol] 10.8 g/dL Low 11.9 - 15.1 g/dL [facility] Immature granulocytes/100 WBC (Bld) 1 % High 0 [facility] Interpretation and review of laboratory results Abnormal [facility] Lymphocytes/100 WBC (Bld) 8 % Low 24 - 43 % [facility] MCH (RBC) [Entitic mass] 28.4 pg 25.2 - 33.5 pg [facility] MCHC (RBC) [Mass/Vol] 32.2 g/dL 28.4 - 34.8 g/dL [facility] MCV (RBC) [Entitic vol] 88.2 fL 82.6 - 102.9 fL [facility] Monocytes/100 WBC (Bld) 4 % 3 - 12 % [facility] NRBC Automated 0.0 0.0 per 100 WBC [facility] Platelet distribution width (Bld) [Ratio] 13.2 % 11.8 - 14.4 % [facility] Platelet mean volume (Bld) [Entitic vol] 10.5 fL 8.1 - 13.5 fL [facility] Platelets (Bld) [#/Vol] 197 10*3/uL [facility] RBC (Bld) [#/Vol] 3.80 10*6/uL Low 3.95 - 5.1 1 m/uL [facility] Segmented neutrophils/100 WBC (Bld) 87 % High 36 - 65 % [facility] Segs Absolute 13.58 High [facility] WBC (Bld) [#/Vol] 15.6 10*3/uL High [facility] CBC with Diffon 07-21-2022 Abs. Basophil 0.03 k/uL Normal 0.00-0.20 [facility] Comment on above: Performed By: #### N ATER #### [email or web address] [address] [place] [address] [employer] Operator: Gideon Bullock MD Abs. Eosinophil <0.03 Normal 0.00-0.44 [facility] Comment on above: Performed By: #### N ATER #### [address] [address] [employer] Operator: Gideon Bullock MD Abs.Imm.Granulocyte 0.12 k/uL Normal 0.00-0.30 [facility] Comment on above: Performed By: #### N ATER #### [address] [address] [employer] Operator: Gideon Bullock MD Abs.Neutrophil (Seg) 13.58 k/uL High 1.50-8.10 [facility] Comment on above: Performed By: #### N ATER #### [address] [address] [employer] Operator: Gideon Bullock MD Basophils/100 WBC (Bld) 0 % Normal 0-2 [facility] Comment on above: Performed By: #### N ATER #### [address] [address] [employer] Operator: Gideon Bullock MD Eosinophils/100 WBC (Bld) 0 % Low 1-4 [facility] Comment on above: Performed By: #### N ATER #### [address] [address] [employer] Operator: Gideon Bullock MD Erythrocyte distribution width (RBC) [Ratio] 13.2 % Normal 11.8-14.4 [facility] Comment on above: Performed By: #### N ATER #### [address] [address] [employer] Operator: Gideon Bullock MD Hematocrit (Bld) [Volume fraction] 33.5 % Low 36.3-47.1 [facility] Comment on above: Performed By: #### N ATER #### [address] [address] [employer] Operator: Gideon Bullock MD Hemoglobin (Bld) [Mass/Vol] 10.8 g/dL Low 11.9-15.1 [facility] Comment on above: Performed By: #### N ATER #### [address] [address] [employer] Operator: Gideon Bullock MD Immature granulocytes/100 WBC (Bld) 1 % High 0 [facility] Comment on above: Performed By: #### N ATER #### [address] [address] [employer] Operator: Gideon Bullock MD Lymphocytes (Bld) [#/Vol] 1.21 10*3/uL Normal 1.10-3.70 [facility] Comment on above: Performed By: #### N ATER #### [place] [address] [employer] Operator: Gideon Bullock MD Lymphocytes/100 WBC (Bld) 8 % Low 24-43 [facility] Comment on above: Performed By: #### N ATER #### [place] [address] [employer] Operator: Gideon Bullock MD MCH (RBC) [Entitic mass] 28.4 pg Normal 25.2-33.5 [facility] Comment on above: Performed By: #### N ATER #### [address] [address] [employer] Operator: Gideon Bullock MD MCHC (RBC) [Mass/Vol] 32.2 g/dL Normal 28.4-34.8 [facility] Comment on above: Performed By: #### N ATER #### [address] [address] [employer] Operator: Gideon Bullock MD MCV (RBC) [Entitic vol] 88.2 fL Normal 82.6-102.9 [facility] Comment on above: Performed By: #### N ATER #### [address] [address] [employer] Operator: Gideon Bullock MD Monocytes (Bld) [#/Vol] 0.69 10*3/uL Normal 0.10-1.20 [facility] Comment on above: Performed By: #### N ATER #### [address] [address] [employer] Operator: Gideon Bullock MD Monocytes/100 WBC (Bld) 4 % Normal 3-12 [facility] Comment on above: Performed By: #### N ATER #### [address] [address] [employer] Operator: Gideon Bullock MD Neutrophil (Seg) 87 % High 36-65 [facility] Comment on above: Performed By: #### N ATER #### [address] [address] [employer] Operator: Gideon Bullock MD NRBC Automated 0.0 per 100 WBC Normal 0.0 [facility] Comment on above: Performed By: #### N ATER #### [address] [address] [employer] Operator: Gideon Bullock MD Platelet mean volume (Bld) [Entitic vol] 10.5 fL Normal 8.1-13.5 [facility] Comment on above: Performed By: #### N ATER #### [address] [address] [employer] Operator: Gideon Bullock MD Platelets (Bld) [#/Vol] 197 10*3/uL Normal 138-453 [facility] Comment on above: Performed By: #### N ATER #### [address] [address] [employer] Operator: Gideon Bullock MD RBC (Bld) [#/Vol] 3.80 10*6/uL Low 3.95-5.11 [facility] Comment on above: Performed By: #### N ATER #### [address] [address] [employer] Operator: Gideon Bullock MD WBC (Bld) [#/Vol] 15.6 10*3/uL High 3.5-11.3 [facility] Comment on above: Performed By: #### N ATER #### [address] [address] [employer] Operator: Gideon Bullock MD Chlamydia/GC DNA, Uron 07-21 Chlamydia Probe, Ur Negative Normal NEG [facility] Comment on above: Result Comment: CHLA MYDIA TRACHOMATIS DNA not detected by nucleic acid amplification. This test is intended for medical purposes only and is not valid for the evaluation of suspected sexual abuse or for other forensic purposes. In certain contexts, culture may be required to meet applicable laws and regulations for diagnosis of C. trachomatis and N. gonorrhoeae infections. Per 2014 CDC recommendations, this test does not include confirmation of positive results by an alternative nucleic acid target. Performed By: #### T SH, FT4 #### [address] [address] [employer] Operator: Gideon Bullock MD Gonorrhea Probe, Ur Negative Normal NEG [facility] Comment on above: Result Comment: NEIS SERIA GONORRHOEAE DNA not detected by nucleic acid amplification. This test is intended for medical purposes only and is not valid for the evaluation of suspected sexual abuse or for other forensic purposes. In certain contexts, culture may be required to meet applicable laws and regulations for diagnosis of C. trachomatis and N. gonorrhoeae infections. Per 2014 CDC recommendations, this test does not include confirmation of positive results by an alternative nucleic acid target. Performed By: #### T SH, FT4 #### [address] [address] [employer] Operator: Gideon Bullock MD Cult,Urineon 07-21-2022 Cult,Urine Specimen Description .CLEAN CATCH URINE Culture NO SIGNIFICANT GROWTH Report Status FINAL 07/21/2022 Normal [facility] Comment on above: Performed By: #### T , FT4 #### [email or web address] [address] [place] [id number] [employer] Machine Operator: Gideon Bullock MD Culture, Urineon 07-21-2022 Microorganism identified Cx Nom (Unsp spec) NO SIGNIFICANT GROWTH [facility] Specimen Description .CLEAN CATCH URINE [facility] POC Glucose Fingerstickon Glucose [Mass/Vol] 108 mg/dL High 65 - 105 mg/dL [facility] [employer] Interpretation and review of laboratory results Abnormal [facility] [employer] [facility] [employer] Glucose [Mass/Vol] 95 mg/dL 65 - 105 mg/dL [facility] [employer] [facility] [employer] Glucose [Mass/Vol] 123 mg/dL High 65 - 105 mg/dL [facility] [employer] Interpretation and review of laboratory results Abnormal [facility] [employer] [facility] CBCon 07-20-2022 Erythrocyte distribution width (RBC) [Ratio] 13.2 % Normal 11.8-14.4 [facility] Comment on above: Performed By: #### N ATER #### [email or web address] [address] [place] [id number] [employer] Operator: Gideon Bullock MD Hematocrit (Bld) [Volume fraction] 32.8 % Low 36.3-47.1 [facility] Comment on above: Performed By: #### N ATER #### [email or web address] [address] [place] [id number] [employer] Operator: Gideon Bullock MD Hemoglobin (Bld) [Mass/Vol] 11.0 g/dL Low 11.9-15.1 [facility] Comment on above: Performed By: #### N ATER #### [email or web address] [address] [place] [address] [employer] Operator: Gideon Bullock MD MCH (RBC) [Entitic mass] 28.6 pg Normal 25.2-33.5 [facility] Comment on above: Performed By: #### N ATER #### [address] [address] [employer] Operator: Gideon Bullock MD MCHC (RBC) [Mass/Vol] 33.5 g/dL Normal 28.4-34.8 [facility] Comment on above: Performed By: #### N ATER #### [address] [address] [employer] Operator: Gideon Bullock MD MCV (RBC) [Entitic vol] 85.4 fL Normal 82.6-102.9 [facility] Comment on above: Performed By: #### N ATER #### [address] [address] [employer] Operator: Gideon Bullock MD NRBC Automated 0.0 per 100 WBC Normal 0.0 [facility] Comment on above: Performed By: #### N ATER #### [address] [address] [employer] Operator: Gideon Bullock MD Platelet mean volume (Bld) [Entitic vol] 10.8 fL Normal 8.1-13.5 [facility] Comment on above: Performed By: #### N ATER #### [address] [address] [employer] Operator: Gideon Bullock MD Platelets (Bld) [#/Vol] 200 10*3/uL Normal 138-453 [facility] Comment on above: Performed By: #### N ATER #### [address] [address] [employer] Operator: Gideon Bullock MD RBC (Bld) [#/Vol] 3.84 10*6/uL Low 3.95-5.11 [facility] Comment on above: Performed By: #### N ATER #### [facility] [address] [place], [place] [id number] [employer] Operator: Gideon Bullock MD WBC (Bld) [#/Vol] 10.2 10*3/uL Normal 3.5-11.3 [facility] Comment on above: Performed By: #### N ATER #### [facility] [address] [place], [place] [phone] [employer] Operator: Gideon Bullock MD Hematocrit (Bld) [Volume fraction] 32.8 % Low 36.3 - 47.1 % [facility] Hemoglobin (Bld) [Mass/Vol] 11.0 g/dL Low 11.9 - 15.1 g/dL [facility] Interpretation and review of laboratory results Abnormal [facility] MCH (RBC) [Entitic mass] 28.6 pg 25.2 - 33.5 pg [facility] MCHC (RBC) [Mass/Vol] 33.5 g/dL 28.4 - 34.8 g/dL [facility] MCV (RBC) [Entitic vol] 85.4 fL 82.6 - 102.9 fL [facility] NRBC Automated 0.0 0.0 per 100 WBC [facility] Platelet distribution width (Bld) [Ratio] 13.2 % 11.8 - 14.4 % [facility] Platelet mean volume (Bld) [Entitic vol] 10.8 fL 8.1 - 13.5 fL [facility] Platelets (Bld) [#/Vol] 200 10*3/uL [facility] RBC (Bld) [#/Vol] 3.84 10*6/uL Low 3.95 - 5.1 1 m/uL [facility] WBC (Bld) [#/Vol] 10.2 10*3/uL [facility] [place] [employer] Comp Metabolic Profon 2022 Bilirubin [Mass/Vol] mg/dL Low 0.3-1.2 [facility] Comment on above: Performed By: #### N ATER #### [address] [address] [employer] Machine Operator: Gideon Bullock MD Albumin [Mass/Vol] 3.3 g/dL Low 3.5-5.2 [facility] Comment on above: Performed By: #### N ATER #### [address] [address] [employer] Machine Operator: Gideon Bullock MD Albumin/Glob Ratio 1.0 Normal 1.0-2.5 [facility] Comment on above: Performed By: #### N ATER #### [address] [address] [employer] Machine Operator: Gideon Bullock MD Alkaline Phos 142 U/L High 35-104 [facility] Comment on above: Performed By: #### N ATER #### [address] [address] [employer] Machine Operator: Gideon Bullock MD ALT [Catalytic activity/Vol] 15 U/L Normal 5-33 [facility] Comment on above: Performed By: #### N ATER #### [address] [address] [employer] Operator: Gideon Bullock MD Anion gap [Moles/Vol] 12 mmol/L Normal 9-17 [facility] Comment on above: Performed By: #### N ATER #### [address] [address] [employer] Machine Operator: Gideon Bullock MD AST [Catalytic activity/Vol] 15 U/L Normal <32 [facility] Comment on above: Performed By: #### N ATER #### [address] [address] [employer] Operator: Gideon Bullock MD Calcium [Mass/Vol] 9.0 mg/dL Normal 8.6-10.4 [facility] Comment on above: Performed By: #### N ATER #### [address] [address] [employer] Machine Operator: Gideon Bullock MD Chloride [Moles/Vol] 104 mmol/L Normal 98-107 [facility] Comment on above: Performed By: #### N ATER #### [address] [address] [employer] Machine Operator: Gideon Bullock MD CO2 [Moles/Vol] 21 mmol/L Normal 20-31 [facility] Comment on above: Performed By: #### N ATER #### [address] [address] [employer] Machine Operator: Gideon Bullock MD Creatinine [Mass/Vol] 0.41 mg/dL Low 0.50-0.90 [facility] Comment on above: Performed By: #### N ATER #### [address] [address] [employer] Machine Operator: Gideon Bullock MD GFR/1.73 sq M.predicted among non-blacks MDRD (S/P/Bld) [Vol rate/Area] mL/min/{1.73_m2} Normal >60 [facility] Comment on above: Result Comment: These results are not intended for use in patients <18 years of age. eGFR results are calculated without a race factor using the 2020 CKD-EPI equation. Careful clinical correlation is recommended, particularly when comparing to results calculated using previous equations. The CKD-EPI equation is less accurate in patients with extremes of muscle mass, extra-renal metabolism of creatine, excessive creatine ingestion, or following therapy that affects renal tubular secretion. Performed By: #### N ATER #### [address] [address] [employer] Machine Operator: Gideon Bullock MD Glucose [Mass/Vol] 135 mg/dL High 70-99 [facility] Comment on above: Performed By: #### N ATER #### [address] [address] [employer] Machine Operator: Gideon Bullock MD Potassium [Moles/Vol] 3.8 mmol/L Normal 3.7-5.3 [facility] Comment on above: Performed By: #### N ATER #### [address] [address] [employer] Machine Operator: Gideon Bullock MD Protein [Mass/Vol] 6.5 g/dL Normal 6.4-8.3 [facility] Comment on above: Performed By: #### N ATER #### [address] [address] [employer] Machine Operator: Gideon Bullock MD Sodium [Moles/Vol] 137 mmol/L Normal 135-144 [facility] Comment on above: Performed By: #### N ATER #### [address] [address] [employer] Machine Operator: Gideon Bullock MD Urea nitrogen [Mass/Vol] 8 mg/dL Normal 6-20 [facility] Comment on above: Performed By: #### N ATER #### [address] [address] Hot [employer] Machine Operator: Gideon Bullock MD Comprehensive Metabolic [facility] 07-20-2022 Albumin [Mass/Vol] 3.3 g/dL Low 3.5 - 5.2 g/dL [facility] Albumin/Globulin [Mass ratio] 1.0 {ratio} 1.0 - 2.5 [facility] ALP [Catalytic activity/Vol] 142 U/L High 35 - 104 U/L [facility] ALT [Catalytic activity/Vol] 15 U/L 5 - 33 U/L [facility] Anion gap [Moles/Vol] 12 mmol/L 9 - 17 mmol/L [facility] AST [Catalytic activity/Vol] 15 U/L NINF - 32 U/L [facility] Bilirubin [Mass/Vol] mg/dL Low 0.3 - 1 .2 mg/dL [facility] Calcium [Mass/Vol] 9.0 mg/dL 8.6 - 10. 4 mg/dL [facility] Chloride [Moles/Vol] 104 mmol/L 98 - 10 7 mmol/L [facility] CO2 [Moles/Vol] 21 mmol/L 20 - 31 mmol/L [facility] Creatinine [Mass/Vol] 0.41 mg/dL Low 0.50 - 0.90 mg/dL [facility] GFR/1.73 sq M.predicted MDRD (S/P/Bld) [Vol rate/Area] - PINF [facility] Comment on above: These results are not intended for use in patients <18 years of age. eGFR results are calculated without a race factor using the 2020 CKD-EPI equation. Careful clinical correlation is recommended, particularly when comparing to results calculated using previous equations. The CKD-EPI equation is less accurate in patients with extremes of muscle mass, extra-renal metabolism of creatine, excessive creatine ingestion, or following therapy that affects renal tubular secretion. Glucose [Mass/Vol] 135 mg/dL High 70 - 99 mg/dL [facility] Interpretation and review of laboratory results Abnormal [facility] Potassium [Moles/Vol] 3.8 mmol/L 3.7 - 5.3 mmol/L [facility] Protein [Mass/Vol] 6.5 g/dL 6.4 - 8.3 g/dL [facility] Sodium [Moles/Vol] 137 mmol/L 135 - 144 mmol/L [facility] Urea nitrogen [Mass/Vol] 8 mg/dL 6 - 20 mg/dL [facility] DRUG SCREEN MULTI URINEon Amphetamine Screen, Ur Negative NEGATIVE [facility] Comment on above: (Positive cutoff 1000 ng/mL) Barbiturate Screen, Ur Negative NEGATIVE [facility] Comment on above: (Positive cutoff 200 ng/mL) Benzodiazepine Screen, Urine Negative NEGATIVE [facility] Comment on above: (Positive cutoff 200 ng/mL) Cannabinoid Scrn, Ur Negative NEGATIVE [facility] Comment on above: (Positive cutoff 50 ng/mL) Cocaine Metabolite, Urine Negative NEGATIVE [facility] Comment on above: (Positive cutoff 300 ng/mL) Fentanyl, Ur Negative NEGATIVE [facility] Comment on above: (Positive cutoff 5 ng/ml) Methadone Screen, Urine Negative NEGATIVE [facility] Comment on above: (Positive cutoff 300 ng/mL) Opiates, Urine Negative NEGATIVE [facility] Comment on above: (Positive cutoff 300 ng/mL) Oxycodone Screen, Ur Negative NEGATIVE [facility] Comment on above: (Positive cutoff 100 ng/mL) Phencyclidine, Urine Negative NEGATIVE [facility] Comment on above: (Positive cutoff 25 ng/mL) Test Information Assay provides medic al screening only. The absence of expected drug(s) and/or metabolite(s) may indicate diluted or adulterated urine, limitations of testing or timing of collection. [facility] Comment on above: Testing for legal pu rposes should be confirmed by another method. To request confirmation of test result, please call the lab within 7 days of sample submission. [facility] Drug Scr, Abuse, Uron 2022 Amphetamine(s),Ur Negative Normal [facility] Comment on above: Result Comment: (Positive cutoff 1000 ng/mL) Performed By: #### T RAI, FT4 #### [email or web address] [address] [place], [place] [address] [employer] Operator: Gideon Bullock MD Barbiturate(s),Ur Negative Normal [facility] Comment on above: Result Comment: (Positive cutoff 200 ng/mL) Performed By: #### T RAI, FT4 #### [email or web address] [address] [place], [place] [address] [employer] Operator: Gideon Bullock MD Benzodiazepine(s) Negative Normal [facility] Comment on above: Result Comment: (Positive cutoff 200 ng/mL) Performed By: #### T RAI, FT4 #### [email or web address] [address] [place] [address] [employer] Machine Operator: Gideon Bullock MD Cannabinoid(s),Ur Negative Normal [facility] Comment on above: Result Comment: (Positive cutoff 50 ng/mL) Performed By: #### T SH, FT4 #### [facility] [address] [place] [address] Hot [employer] Machine Operator: Gideon Bullock MD Cocaine Metabolite Negative Normal NEG [facility] Comment on above: Result Comment: (Positive cutoff 300 ng/mL) Performed By: #### T SH, FT4 #### [address] [address] [employer] Dim[employer] Machine Operator: Gideon Bullock MD Fentanyl, Urine Negative Normal NEG [facility] Comment on above: Result Comment: (Positive cutoff 5 ng/ml) Performed By: #### T SH, FT4 #### [address] [address] [employer] Machine Operator: Gideon Bullock MD Interpretive Info Assay provides medic al screening only. The absence of expected drug(s) and/or Normal [facility] Comment on above: Result Comment: meta bolite(s) may indicate diluted or adulterated urine, limitations of testing or timing of collection. Testing for legal purposes should be confirmed by another method. To request confirmation of test result, please call the lab within 7 days of sample submission. Performed By: #### T SH, FT4 #### [address] [address] [employer] Operator: Gideon Bullock MD Methadone Ql (U) Negative Normal NEG [facility] Comment on above: Result Comment: (Positive cutoff 300 ng/mL) Performed By: #### T SH, FT4 #### [address] [address] [employer] Machine Operator: Gideon Bullock MD Opiate(s), Ur Negative Normal NEG [facility] Comment on above: Result Comment: (Positive cutoff 300 ng/mL) Performed By: #### T SH, FT4 #### [email or web address] [address] [place] [address] Hot Dim[employer] Machine Operator: Gideon Bullock MD Oxycodone, Urine Negative Normal NEG [facility] Comment on above: Result Comment: (Positive cutoff 100 ng/mL) Performed By: #### T RAI, FT4 #### [facility] [address] [place] [address] Hot Dim[employer] Machine Operator: Gideon Bullock MD Phencyclidine, Ur Negative Normal NEG [facility] Comment on above: Result Comment: (Positive cutoff 25 ng/mL) Performed By: #### T RAI, FT4 #### [email or web address] [address] [place] [phone] [employer] Machine Operator: Gideon Bullock MD GROUP B STREP CULTUREon 06-23 S. agalactiae Ag Ql (Unsp spec) Culture Observations: NEGATIVE FOR GROUP B STREPTOCOCCUS. Normal [facility] Comment on above: Performed By: #### [id number] #### [facility] [address] [place] [address] Dr. Valeria Farris POC Glucose Fingerstickon Glucose [Mass/Vol] 116 mg/dL High 65 - 105 mg/dL [facility] Interpretation and review of laboratory results Abnormal [facility] Protein / creatinine ratio, urineon 07-20-2022 Creatinine, Ur 95.9 mg/dL 28.0 - 217.0 mg/dL [employer] [facility] Protein (U) [Mass/Vol] 17 mg/dL [facility] [employer] Comment on above: No normal range esta blished. Urine Total Protein Creatinine Ratio 0.18 0.00 - 0.20 [employer] [facility] Protein,Tot,Dudley Uron 2022 Creatinine [Mass/Vol] 95.9 mg/dL Normal 28.0-217.0 [facility] Comment on above: Performed By: #### T SH, FT4 #### [facility] [address] [place] [address] [employer] Dimpling Machine Operator: Gideon Bullock MD Tot Prot. Conc. 17 mg/dL Normal [facility] Comment on above: Result Comment: No n ormal range established. Performed By: #### T SH, FT4 #### [facility] [address] [place] [address] [employer] Machine Operator: Gideon Bullock MD TP/Cre Ratio 0.18 Normal 0.00-0.20 [facility] Comment on above: Performed By: #### T RAI, FT4 #### [facility] [address] [place] [address] [employer] Machine Operator: Gideon Bullock MD T. pallidum Abon 07-20-2022 T. pallidum Ab IA Ql (S) Non-Reactive NONREACTIVE [facility] Comment on above: T. pallidum antibodies are not detected. There is no serological evidence of infection with T. pallidum (early primary syphilis cannot be excluded). Retest in 2-4 weeks if syphilis is clinically suspect. [facility] T.pallidum Ab Screenon 07-20 T.pallidum Ab Screen Non-Reactive Normal NR Me [facility] Comment on above: Result Comment: T. pallidum antibodies are not detected. There is no serological evidence of infection with T. pallidum (early primary syphilis cannot be excluded). Retest in 2-4 weeks if syphilis is clinically suspect. Performed By: #### N ATER #### [facility] [address] [place] [address] [employer] Machine Operator: Gideon Bullock MD TYPE AND SCREENon 07-20-2022 ABO/Rh Positive [facility] Arm Band Number [id number] [facility] Expiration Date 07/23/2022,2351 [facility] Type + Screenon 07-20-2022 Type + Screen Sample Expiration 07/23/2022,235 Arm Band Number [id number] ABO/Rh(D) O POSITIVE Antibody Screen NEGATIVE Normal [facility] Comment on above: Performed By: #### T YS #### [facility] [employer] [facility] [place] [address] Hot Dimpling Machine Operator: Gideon Bullock MD US CHINYERE DOP LEG LTon 07-20-19 US CHINYERE DOP LEG LT EXAMINATION: US CHINYERE DOP LEG LT HISTORY: Localized swelling of left lower leg COMPARISON: No relevant comparison available. FINDINGS: REGION: Left lower extremity THROMBI: None. COMPRESSIBILITY: Normal compressibility. FLOW: Normal waveform and antegrade flow between 5 and 20 cm/s. OTHER: None. IMPRESSION: 1. No deep vein thrombus within the left lower extremity. Electronically authenticated by: GERARD GONZALEZ Date: 2022-07-19 15:06 Normal [facility] COVID + FLU Quick Testingon 07-18-2022 SARS-CoV-2 (COVID-19) RNA SARANYA+probe Ql (Unsp spec) Negative [employer] Other COVID + FLU Quick Testing Negative [employer] Other Quick Strepon 07-18-2022 S. pyogenes Org specific cx Ql (Throat) Negative [employer] Other Quick Strep [employer] Other US PREG BIOPHY W NON STRESSo n 07-17-2022 US PREG BIOPHY W NON STRESS EXAMINATION: US PREG BIOPHY W NON STRESS HISTORY: Gestational diabetes mellitus COMPARISON: Ultrasound biophysical 07/10/2022 FINDINGS: BREATHING MOVEMENTS: 2.0 GROSS BODY MOVEMENTS: 2.0 TONE: 2.0 QUALITATIVE AMNIOTIC FLUID VOLUME: 2.0 PRESENTATION: Breech HEART RATE: 147.5 bpm bpm. AMNIOTIC FLUID VOLUME: 14.4 cm GESTATIONAL AGE: 36 weeks 1 days CONCLUSION: Total biophysical profile score 8.0. Electronically authenticated by: GERARD GONZALEZ Date: 2022-07-17 15:56 Normal [facility] CT CHEST PULMONARY EMBOLISM W CONTRASTon 07-16-2022 CT CHEST PULMONARY EMBOLISM W CONTRAST EXAMINATION: CTA OF THE CHEST 07/15/2022 5:27 pm TECHNIQUE: CTA of the chest was performed after the administration of intravenous contrast. Multiplanar reformatted images are provided for review. MIP images are provided for review. Automated exposure control, iterative reconstruction, and/or weight based adjustment of the mA/kV was utilized to reduce the radiation dose to as low as reasonably achievable. COMPARISON: None. HISTORY: ORDERING SYSTEM PROVIDED HISTORY: SOB TECHNOLOGIST PROVIDED HISTORY: SOB Reason for Exam: sob FINDINGS: Pulmonary Arteries: Pulmonary arteries are adequately opacified for evaluation. No evidence of intraluminal filling defect to suggest pulmonary embolism. Main pulmonary artery is normal in caliber. Mediastinum: No evidence of mediastinal lymphadenopathy. The heart and pericardium demonstrate no acute abnormality. There is no acute abnormality of the thoracic aorta. Lungs/pleura: The lungs are without acute process. No focal consolidation or pulmonary edema. No evidence of pleural effusion or pneumothorax. Upper Abdomen: Limited images of the upper abdomen are unremarkable. Soft Tissues/Bones: No acute bone or soft tissue abnormality. IMPRESSION: No evidence of pulmonary embolism or acute pulmonary abnormality. Interpreted by: Daksha Benoit MD Signed by: Daksha Benoit MD 07/15/22 Final result Normal [facility] Brain Natri. Peptideon 07-15 Pro-BNP <36 Normal <300 [facility] Comment on above: Result Comment: An age-independent cutoff point of 300 pg/ml has a 98% negative predictive value excluding acute heart failure. Performed By: #### B PRODUCTION TEAM ADVISOR, CP, TROPI, AHCV, PRENAT, HIVCMB #### [email or web address] [address] [place] [address] [employer] Machine Operator: Gideon Bullock MD Brain Natriuretic Peptideon 07-15-2022 Natriuretic peptide B (Bld) [Mass/Vol] pg/mL NINF - 300 pg/mL [facility] Comment on above: An age-independent cutoff point of 300 pg/ml has a 98% negative predictive value excluding acute heart failure. [facility] Comp Metabolic Profon 2022 Bilirubin [Mass/Vol] mg/dL Low 0.3-1.2 [facility] Comment on above: Performed By: #### B PRODUCTION TEAM ADVISOR, CP, TROPI, AHCV, PRENAT, HIVCMB #### [address] [address] [employer] Machine Operator: Gideon Bullock MD Albumin [Mass/Vol] 3.4 g/dL Low 3.5-5.2 [facility] Comment on above: Performed By: #### B PRODUCTION TEAM ADVISOR, CP, TROPI, AHCV, PRENAT, HIVCMB #### [address] [address] Hot [employer] Machine Operator: Gideon Bullock MD Albumin/Glob Ratio 1.0 Normal 1.0-2.5 [facility] Comment on above: Performed By: #### B PRODUCTION TEAM ADVISOR, CP, TROPI, AHCV, PRENAT, HIVCMB #### [address] [address] [employer] Machine Operator: Gideon Bullock MD Alkaline Phos 138 U/L High 35-104 [facility] Comment on above: Performed By: #### B PRODUCTION TEAM ADVISOR, CP, TROPI, AHCV, PRENAT, HIVCMB #### [address] [address] [employer] Machine Operator: Gideon Bullock MD ALT [Catalytic activity/Vol] 16 U/L Normal 5-33 [facility] Comment on above: Performed By: #### B PRODUCTION TEAM ADVISOR, CP, TROPI, AHCV, PRENAT, HIVCMB #### [address] [address] [employer] Machine Operator: Gideon Bullock MD Anion gap [Moles/Vol] 12 mmol/L Normal 9-17 [facility] Comment on above: Performed By: #### B PRODUCTION TEAM ADVISOR, CP, TROPI, AHCV, PRENAT, HIVCMB #### [address] [address] Hot [employer] Machine Operator: Gideon Bullock MD AST [Catalytic activity/Vol] 23 U/L Normal <32 [facility] Comment on above: Performed By: #### B PRODUCTION TEAM ADVISOR, CP, TROPI, AHCV, PRENAT, HIVCMB #### [facility] [address] [place] [address] Hot [employer] Machine Operator: Gideon Bullock MD Calcium [Mass/Vol] 8.9 mg/dL Normal 8.6-10.4 [facility] Comment on above: Performed By: #### B PRODUCTION TEAM ADVISOR, CP, TROPI, AHCV, PRENAT, HIVCMB #### [facility] [address] [place] [address] Hot [employer] Machine Operator: Gideon Bullock MD Chloride [Moles/Vol] 102 mmol/L Normal 98-107 [facility] Comment on above: Performed By: #### B PRODUCTION TEAM ADVISOR, CP, TROPI, AHCV, PRENAT, HIVCMB #### [facility] [employer] [address] [place] [address] Hot Dim[employer] Machine Operator: Gideon Bullock MD CO2 [Moles/Vol] 19 mmol/L Low 20-31 [facility] Comment on above: Performed By: #### B PRODUCTION TEAM ADVISOR, CP, TROPI, AHCV, PRENAT, HIVCMB #### [facility] [employer] [address] [place] [address] Hot [employer] Machine Operator: Gideon Bullock MD Creatinine [Mass/Vol] 0.38 mg/dL Low 0.50-0.90 [facility] Comment on above: Performed By: #### B PRODUCTION TEAM ADVISOR, CP, TROPI, AHCV, PRENAT, HIVCMB #### [facility] [employer] [address] [place] [address] [employer] Machine Operator: Gideon Bullock MD GFR/1.73 sq M.predicted among non-blacks MDRD (S/P/Bld) [Vol rate/Area] mL/min/{1.73_m2} Normal >60 [facility] Comment on above: Result Comment: These results are not intended for use in patients <18 years of age. eGFR results are calculated without a race factor using the 2020 CKD-EPI equation. Careful clinical correlation is recommended, particularly when comparing to results calculated using previous equations. The CKD-EPI equation is less accurate in patients with extremes of muscle mass, extra-renal metabolism of creatine, excessive creatine ingestion, or following therapy that affects renal tubular secretion. Performed By: #### B PRODUCTION TEAM ADVISOR, CP, TROPI, AHCV, PRENAT, HIVCMB #### [facility] [employer] [address] [place] [address] [employer] Operator: Gideon Bullock MD Glucose [Mass/Vol] 131 mg/dL High 70-99 [facility] Comment on above: Performed By: #### B PRODUCTION TEAM ADVISOR, CP, TROPI, AHCV, PRENAT, HIVCMB #### [facility] [employer] [address] [place] [address] [employer] Operator: Gideon Bullock MD Potassium [Moles/Vol] 3.5 mmol/L Low 3.7-5.3 [facility] Comment on above: Performed By: #### B PRODUCTION TEAM ADVISOR, CP, TROPI, AHCV, PRENAT, HIVCMB #### [facility] [employer] [address] [place] [address] [employer] Operator: Gideon Bullock MD Protein [Mass/Vol] 6.7 g/dL Normal 6.4-8.3 [facility] Comment on above: Performed By: #### B PRODUCTION TEAM ADVISOR, CP, TROPI, AHCV, PRENAT, HIVCMB #### [facility] [employer] [address] [place] [address] [employer] Operator: Gideon Bullock MD Sodium [Moles/Vol] 133 mmol/L Low 135-144 [facility] Comment on above: Performed By: #### B PRODUCTION TEAM ADVISOR, CP, TROPI, AHCV, PRENAT, HIVCMB #### [facility] [employer] [address] [place] [address] [employer] Machine Operator: Gideon Bullock MD Urea nitrogen [Mass/Vol] 9 mg/dL Normal 6-20 [facility] Comment on above: Performed By: #### B PRODUCTION TEAM ADVISOR, CP, TROPI, AHCV, PRENAT, HIVCMB #### [facility] [address] [place] [address] [employer] Machine Operator: Gideon Bullock MD Comprehensive metabolic pane [facility] 07-15-2022 Albumin [Mass/Vol] 3.4 g/dL Low 3.5 - 5.2 g/dL [facility] Albumin/Globulin [Mass ratio] 1.0 {ratio} 1.0 - 2.5 [facility] ALP [Catalytic activity/Vol] 138 U/L High 35 - 104 U/L [facility] ALT [Catalytic activity/Vol] 16 U/L 5 - 33 U/L [facility] Anion gap [Moles/Vol] 12 mmol/L 9 - 17 mmol/L [facility] AST [Catalytic activity/Vol] 23 U/L NINF - 32 U/L [facility] Bilirubin [Mass/Vol] mg/dL Low 0.3 - 1 .2 mg/dL [facility] Calcium [Mass/Vol] 8.9 mg/dL 8.6 - 10. 4 mg/dL [facility] Chloride [Moles/Vol] 102 mmol/L 98 - 10 7 mmol/L [facility] CO2 [Moles/Vol] 19 mmol/L Low 20 - 31 mmol/L [facility] Creatinine [Mass/Vol] 0.38 mg/dL Low 0.50 - 0.90 mg/dL [facility] GFR/1.73 sq M.predicted MDRD (S/P/Bld) [Vol rate/Area] - PINF [facility] Comment on above: These results are not intended for use in patients <18 years of age. eGFR results are calculated without a race factor using the 2020 CKD-EPI equation. Careful clinical correlation is recommended, particularly when comparing to results calculated using previous equations. The CKD-EPI equation is less accurate in patients with extremes of muscle mass, extra-renal metabolism of creatine, excessive creatine ingestion, or following therapy that affects renal tubular secretion. Glucose [Mass/Vol] 131 mg/dL High 70 - 99 mg/dL [facility] Interpretation and review of laboratory results Abnormal [facility] Potassium [Moles/Vol] 3.5 mmol/L Low 3.7 - 5.3 mmol/L [facility] Protein [Mass/Vol] 6.7 g/dL 6.4 - 8.3 g/dL [facility] Sodium [Moles/Vol] 133 mmol/L Low 135 - 144 mmol/L [facility] Urea nitrogen [Mass/Vol] 9 mg/dL 6 - 20 mg/dL [facility] HIV Ag/Abon 07-15-2022 HIV Ag/Ab Non-Reactive Normal [facility] Comment on above: Result Comment: No l aboratory evidence of HIV infection. If acute HIV infection is suspected, consider testing for HIV-1 RNA. Performed By: #### B PRODUCTION TEAM ADVISOR, CP, TROPI, AHCV, PRENAT, HIVCMB #### [email or web address] [address] [place] [id number] [employer] Machine Operator: Gideon Bullock MD HIV Screenon 07-15-2022 HIV 1+2 Ab+HIV1 p24 Ag IA Ql Non-Reactive NONREACTIVE [facility] Comment on above: No laboratory eviden ce of HIV infection. If acute HIV infection is suspected, consider testing for HIV-1 RNA. [facility] Hep C Abon 07-15-2022 Hep C Ab Non-Reactive Normal [facility] Comment on above: Result Comment: The hepatitis C procedure used in our laboratory is a Chemiluminescent test specific for three recombinant HCV antigens. A negative anti-HCV result indicates that the antibodies to hepatitis C virus are not present at this time. Individuals with reactive anti-HCV should be considered infected and infectious until proven otherwise. Confirmation of all equivocal or reactive results is recommended by ordering HCV RNA by PCR. Performed By: #### B PRODUCTION TEAM ADVISOR, CP, TROPI, AHCV, PRENAT, HIVCMB #### [email or web address] [address] [place] [address] [employer] Dim[employer] Machine Operator: Gideon Bullock MD Profileon Hep B Surf Ag Non-Reactive Normal [facility] Comment on above: Performed By: #### B PRODUCTION TEAM ADVISOR, CP, TROPI, AHCV, PRENAT, HIVCMB #### [place] [address] [employer] Machine Operator: Gideon Bullock MD Rubella Ab, IgG 70.9 IU/mL Normal [facility] Comment on above: Result Comment: REFERENCE RANGE: <5.0 NON-REACTIVE (non-immune) 5.0 TO 9.9 EQUIVOCAL >=10.0 REACTIVE (immune) Performed By: #### B PRODUCTION TEAM ADVISOR, CP, TROPI, AHCV, PRENAT, HIVCMB #### [place] [address] [employer] Machine Operator: Gideon Bullock MD T.pallidum Ab Screen Non-Reactive Normal [facility] Comment on above: Result Comment: T. pallidum antibodies are not detected. There is no serological evidence of infection with T. pallidum (early primary syphilis cannot be excluded). Retest in 2-4 weeks if syphilis is clinically suspect. Performed By: #### B PRODUCTION TEAM ADVISOR, CP, TROPI, AHCV, PRENAT, HIVCMB #### [place] [address] [employer] Machine Operator: Gideon Bullock MD Abs. Basophil 0.04 k/uL Normal 0.00-0.20 [facility] Comment on above: Performed By: #### B PRODUCTION TEAM ADVISOR, CP, TROPI, AHCV, PRENAT, HIVCMB #### [place] [address] [employer] Machine Operator: Gideon Bullock MD Abs.Imm.Granulocyte 0.09 k/uL Normal 0.00-0.30 [facility] Comment on above: Performed By: #### B PRODUCTION TEAM ADVISOR, CP, TROPI, AHCV, PRENAT, HIVCMB #### [address] [address] Hot Dimpling Machine Operator: Gideon Bullock MD Abs.Neutrophil (Seg) 8.48 k/uL High 1.50-8.10 [facility] Comment on above: Performed By: #### B PRODUCTION TEAM ADVISOR, CP, TROPI, AHCV, PRENAT, HIVCMB #### [address] [address] Hot [employer] Machine Operator: Gideon Bullock MD Basophils/100 WBC (Bld) 0 % Normal 0-2 [facility] Comment on above: Performed By: #### B PRODUCTION TEAM ADVISOR, CP, TROPI, AHCV, PRENAT, HIVCMB #### [place] [address] Hot Dim[employer] Machine Operator: Gideon Bullock MD Eosinophils (Bld) [#/Vol] 0.17 10*3/uL Normal 0.00-0.44 [facility] Comment on above: Performed By: #### B PRODUCTION TEAM ADVISOR, CP, TROPI, AHCV, PRENAT, HIVCMB #### [place] [address] Hot Dim[employer] Machine Operator: Gideon Bullock MD Eosinophils/100 WBC (Bld) 2 % Normal 1-4 [facility] Comment on above: Performed By: #### B PRODUCTION TEAM ADVISOR, CP, TROPI, AHCV, PRENAT, HIVCMB #### [place] [address] [employer] Machine Operator: Gideon Bullock MD Erythrocyte distribution width (RBC) [Ratio] 13.3 % Normal 11.8-14.4 [facility] Comment on above: Performed By: #### B PRODUCTION TEAM ADVISOR, CP, TROPI, AHCV, PRENAT, HIVCMB #### [place] [address] Hot Dim[employer] Machine Operator: Gideon Bullock MD Hematocrit (Bld) [Volume fraction] 33.7 % Low 36.3-47.1 [facility] Comment on above: Performed By: #### B PRODUCTION TEAM ADVISOR, CP, TROPI, AHCV, PRENAT, HIVCMB #### [facility] [place] [address] Hot Dimpling Machine Operator: Gideon Bullock MD Hemoglobin (Bld) [Mass/Vol] 11.2 g/dL Low 11.9-15.1 [facility] Comment on above: Performed By: #### B PRODUCTION TEAM ADVISOR, CP, TROPI, AHCV, PRENAT, HIVCMB #### [facility] [address] [place] [address] Hot Dimpling Machine Operator: Gideon Bullock MD Immature granulocytes/100 WBC (Bld) 1 % High 0 [facility] Comment on above: Performed By: #### B PRODUCTION TEAM ADVISOR, CP, TROPI, AHCV, PRENAT, HIVCMB #### [address] [address] Hot Dim[employer] Machine Operator: Gideon Bullock MD Lymphocytes (Bld) [#/Vol] 1.59 10*3/uL Normal 1.10-3.70 [facility] Comment on above: Performed By: #### B PRODUCTION TEAM ADVISOR, CP, TROPI, AHCV, PRENAT, HIVCMB #### [address] [address] Hot Dimpling Machine Operator: Gideon Bullock MD Lymphocytes/100 WBC (Bld) 14 % Low 24-43 [facility] Comment on above: Performed By: #### B PRODUCTION TEAM ADVISOR, CP, TROPI, AHCV, PRENAT, HIVCMB #### [facility] [employer] [address] [place] [address] Hot Dimpling Machine Operator: Gideon Bullock MD MCH (RBC) [Entitic mass] 28.4 pg Normal 25.2-33.5 [facility] Comment on above: Performed By: #### B PRODUCTION TEAM ADVISOR, CP, TROPI, AHCV, PRENAT, HIVCMB #### [facility] [employer] [address] [place] [address] Hot [employer] Machine Operator: Gideon Bullock MD MCHC (RBC) [Mass/Vol] 33.2 g/dL Normal 28.4-34.8 [facility] Comment on above: Performed By: #### B PRODUCTION TEAM ADVISOR, CP, TROPI, AHCV, PRENAT, HIVCMB #### [address] [address] Hot Dimpling Machine Operator: Gideon Bullock MD MCV (RBC) [Entitic vol] 85.3 fL Normal 82.6-102.9 [facility] Comment on above: Performed By: #### B PRODUCTION TEAM ADVISOR, CP, TROPI, AHCV, PRENAT, HIVCMB #### [place] [address] Hot Dim[employer] Machine Operator: Gideon Bullock MD Monocytes (Bld) [#/Vol] 0.92 10*3/uL Normal 0.10-1.20 [facility] Comment on above: Performed By: #### B PRODUCTION TEAM ADVISOR, CP, TROPI, AHCV, PRENAT, HIVCMB #### [address] [address] Hot [employer] Machine Operator: Gideon Bullock MD Monocytes/100 WBC (Bld) 8 % Normal 3-12 [facility] Comment on above: Performed By: #### B PRODUCTION TEAM ADVISOR, CP, TROPI, AHCV, PRENAT, HIVCMB #### [address] [address] Hot Dimpling Machine Operator: Gideon Bullock MD Neutrophil (Seg) 75 % High 36-65 [facility] Comment on above: Performed By: #### B PRODUCTION TEAM ADVISOR, CP, TROPI, AHCV, PRENAT, HIVCMB #### [address] [address] Hot Dimpling Machine Operator: Gideon Bullock MD NRBC Automated 0.0 per 100 WBC Normal 0.0 [facility] Comment on above: Performed By: #### B PRODUCTION TEAM ADVISOR, CP, TROPI, AHCV, PRENAT, HIVCMB #### [facility] [place] [address] Hot Dimpling Machine Operator: Gideon Bullock MD Platelet mean volume (Bld) [Entitic vol] 10.9 fL Normal 8.1-13.5 [facility] Comment on above: Performed By: #### B PRODUCTION TEAM ADVISOR, CP, TROPI, AHCV, PRENAT, HIVCMB #### [facility] [address] [place] [address] Hot Dim[employer] Machine Operator: Gideon Bullock MD Platelets (Bld) [#/Vol] 214 10*3/uL Normal 138-453 [facility] Comment on above: Performed By: #### B PRODUCTION TEAM ADVISOR, CP, TROPI, AHCV, PRENAT, HIVCMB #### [facility] [employer] [address] [place] [address] Hot [employer] Machine Operator: Gideon Bullock MD RBC (Bld) [#/Vol] 3.95 10*6/uL Normal 3.95-5.11 [facility] Comment on above: Performed By: #### B PRODUCTION TEAM ADVISOR, CP, TROPI, AHCV, PRENAT, HIVCMB #### [facility] [address] [place] [address] Hot Dimpling Machine Operator: Gideon Bullock MD WBC (Bld) [#/Vol] 11.3 10*3/uL Normal 3.5-11.3 [facility] Comment on above: Performed By: #### B PRODUCTION TEAM ADVISOR, CP, TROPI, AHCV, PRENAT, HIVCMB #### [facility] [employer] [address] [place] [address] Hot Dimpling Machine Operator: Gideon Bullock MD Protein / Creatinine Ratio, Urineon 07-15-2022 Creatinine, Ur 33.5 mg/dL 28.0 - 217.0 mg/dL [employer] Protein (U) [Mass/Vol] 5 mg/dL [employer] Comment on above: No normal range esta blished. Urine Total Protein Creatinine Ratio 0.15 0.00 - 0.20 [facility] Protein,Tot,Dudley Uron 2022 Creatinine [Mass/Vol] 33.5 mg/dL Normal 28.0-217.0 [facility] Comment on above: Performed By: #### N ATER #### [facility] [address] [place] [address] Hot Dimpling Machine Operator: Gideon Bullock MD Tot Prot. Conc. 5 mg/dL Normal [facility] Comment on above: Result Comment: No n ormal range established. Performed By: #### N ATER #### [address] [address] Hot Dim[employer] Machine Operator: Gideon Bullock MD TP/Cre Ratio 0.15 Normal 0.00-0.20 [facility] Comment on above: Performed By: #### N ATER #### [address] [address] Hot Dimpling Machine Operator: Gideon Bullock MD TYPE AND SCREENon 07-15-2022 ABO/Rh Positive [facility] Arm [place] Number BE [id number] [facility] [employer] Expiration Date 07/18/2022,2359 [facility] Troponinon 07-15-2022 Troponin, High Sens <6 Normal 0-14 [facility] Comment on above: Result Comment: High Sensitivity Troponin values cannot be compared with other Troponin methodologies. Performed By: #### B PRODUCTION TEAM ADVISOR, CP, TROPI, AHCV, PRENAT, HIVCMB #### [facility] [employer] [address] [place] [phone] Hot Dim[employer] Machine Operator: Gideon Bullock MD Troponin I.cardiac DL <= 0.01 ng/mL [Mass/Vol] ng/L 0 - 14 ng/L [facility] [employer] Comment on above: High Sensitivity Tro ponin values cannot be compared with other Troponin methodologies. [facility] [employer] Type + Screenon 07-15-2022 Type + Screen Sample Expiration 07/18/2022,2359 Arm Band Number BE [id number] ABO/Rh(D) O POSITIVE Antibody Screen NEGATIVE Normal [facility] Comment on above: Performed By: #### T , FT4 #### [facility] [place] [address] Hot Dimpling Machine Operator: Gideon Bullock MD XR CHEST (SINGLE VIEW FRONTA L)on 07-15-2022 XR CHEST (SINGLE VIEW FRONTAL) EXAMINATION: ONE XRAY VIEW OF THE CHEST 07/15/2022 4:26 pm COMPARISON: None. HISTORY: ORDERING SYSTEM PROVIDED HISTORY: shortness of breath TECHNOLOGIST PROVIDED HISTORY: Concerns for COVID shortness of breath FINDINGS: The lungs are without acute focal process. There is no effusion or pneumothorax. The cardiomediastinal silhouette is without acute process. The osseous structures are without acute process. IMPRESSION: No acute process. Interpreted by: Abner Dela Cruz MD Signed by: Abner Dela Cruz MD 07/15/22 Final result Normal [facility] No acute process. [facility] EXAMINATION: ONE XRAY VIEW OF THE CHEST 07/15/2022 4:26 pm COMPARISON: None. HISTORY: ORDERING SYSTEM PROVIDED HISTORY: shortness of breath TECHNOLOGIST PROVIDED HISTORY: Concerns for COVID shortness of breath FINDINGS: The lungs are without acute focal process. There is no effusion or pneumothorax. The cardiomediastinal silhouette is without acute process. The osseous structures are without acute process. [facility] Abner Dela Cruz MD - 07/15/2022 EXAMINATION: ONE XRAY VIEW OF THE CHEST 07/15/2022 4:26 pm COMPARISON: None. HISTORY: ORDERING SYSTEM PROVIDED HISTORY: shortness of breath TECHNOLOGIST PROVIDED HISTORY: Concerns for COVID shortness of breath FINDINGS: The lungs are without acute focal process. There is no effusion or pneumothorax. The cardiomediastinal silhouette is without acute process. The osseous structures are without acute process. IMPRESSION: No acute process. [employer] Phone: Radiology Study observation (narrative) [employer] Phone: XR CHEST (SINGLE VIEW FRONTA L)Ordered By: Abner Dela Cruz on 07-15-2022 MERLY AMADOR [employer] Work Phone: US PREG BIOPHY W NON STRESSo n 07-10-2022 US PREG BIOPHY W NON STRESS EXAMINATION: US PREG BIOPHY W NON STRESS HISTORY: Gestational diabetes mellitus COMPARISON: Ultrasound biophysical 07/03/2022 FINDINGS: BREATHING MOVEMENTS: 2.0 GROSS BODY MOVEMENTS: 2.0 TONE: 2.0 QUALITATIVE AMNIOTIC FLUID VOLUME: 2.0 PRESENTATION: Breech HEART RATE: 161.7 bpm bpm. AMNIOTIC FLUID VOLUME: 11.9 cm GESTATIONAL AGE: 35 weeks 1 days CONCLUSION: Total biophysical profile score 8.0. Electronically authenticated by: GERARD GONZALEZ Date: 2022-07-10 15:41 Normal [facility] US PREG BIOPHY W NON STRESSo n 07-04-2022 US PREG BIOPHY W NON STRESS EXAMINATION: US PREG BIOPHY W NON STRESS HISTORY: Gestational diabetes mellitus COMPARISON: Ultrasound biophysical 06/26/2022 FINDINGS: BREATHING MOVEMENTS: 2.0 GROSS BODY MOVEMENTS: 2.0 TONE: 2.0 QUALITATIVE AMNIOTIC FLUID VOLUME: 2.0 PRESENTATION: Breech HEART RATE: 135.0 bpm bpm. AMNIOTIC FLUID VOLUME: 14.5 cm GESTATIONAL AGE: 34 weeks 1 days CONCLUSION: Total biophysical profile score 8.0. Electronically authenticated by: GERARD GONZALEZ Date: 2022-07-04 16:21 Normal [facility] UA (CLEAN/CATCH) FIRE SUPPORT SPECIALIST/MICRO I F IND.on 06-30-2022 Bilirubin Ql (U) Negative Normal NEGATIVE [facility] Comment on above: Performed By: #### [id number] #### [facility] [address] [address] [address] Valeria Farris Clarity (U) CLEAR Normal CLEAR [facility] Comment on above: Performed By: #### 4 [id number] #### [facility] [address] [address] [address] Valeria Farris Color (U) LT. YELLOW Normal YELLOW [facility] Comment on above: Performed By: #### 4 [id number] #### [facility] [address] [address] [address] Valeria Farris Glucose Ql (U) Negative Normal NEGATIVE [facility] Comment on above: Performed By: #### 4 [id number] #### [facility] [address] [place] [address] Dr. Valeria Farris Hemoglobin Ql (U) LARGE Abnormal NEGATIVE [facility] Comment on above: Performed By: #### 4 [id number] #### [facility] [address] [place] [address] Dr. Valeria Farris Ketones Ql (U) Negative Normal NEGATIVE [facility] Comment on above: Performed By: #### 4 [id number] #### [facility] [address] [place] [address] Dr. Valeria Farris LEUKOCYTES Negative Normal NEGATIVE [facility] Comment on above: Performed By: #### 4 [id number] #### [facility] [address] [place] [address] Dr. Valeria Farris Nitrite Ql (U) Negative Normal NEGATIVE [facility] Comment on above: Performed By: #### 4 [id number] #### [facility] [address] [place] [address] Dr. Valeria Farris pH (U) 6.5 [pH] Normal 5-9 [facility] Comment on above: Performed By: #### 4 [id number] #### [facility] [address] [place] [address] Dr. Valeria Farris SPEC GRAVITY <=1.005 Abnormal 1.005-<=1.02 5 [facility] Comment on above: Performed By: #### 4 [id number] #### [facility] [address] [place] [address] Dr. Valeria Farris UA PROTEIN Negative Normal NEGATIVE/ TRACE [facility] Comment on above: Performed By: #### 4 [id number] #### [facility] [address] [place] [address] Dr. Valeria Farris UR MICRO IND INDICATED Normal [facility] Comment on above: Performed By: #### 4 [id number] #### [facility] [address] [place] [address] Dr. Valeria Farris Urobilinogen Qn (U) 0.2 {Manolo'U}/dL Normal 0.2 - 1. 0 [facility] Comment on above: Performed By: #### 4 [id number] #### [facility] [address] [place] [address] Dr. Valeria Farris URINE MICROSCOPIC ONLYon BACTERIA NONE SEEN Normal NONE SEEN [facility] Comment on above: Performed By: #### 4 [id number] #### [facility] [address] [place] [address] Dr. Valeria Farris Bacteria identified Cx Nom (U) NOT INDICATED Normal [facility] Comment on above: Performed By: #### 4 [id number] #### [facility] [address] [place] [address] Dr. Valeria Farris CAST NONE SEEN Normal NONE SEEN [facility] Comment on above: Performed By: #### 4 [id number] #### [facility] [address] [place] [address] Dr. Valeria Farris Crystals LM Nom (Urine sed) NONE SEEN Normal NONE SEEN [facility] Comment on above: Performed By: #### 4 [id number] #### [facility] [address] [place] [address] Dr. Valeria Farris Epithelial cells LM Ql (Urine sed) FEW Abnormal NONE SEEN /RARE [facility] Comment on above: Performed By: #### 4 [id number] #### [facility] [address] [place] [address] Dr. Valeria Farris MUCOUS NONE SEEN Normal NONE SEEN [facility] Comment on above: Performed By: #### 4 [id number] #### [facility] [address] [place] [address] Dr. Valeria Farris RBC 5-10 Abnormal 0-2 [facility] Comment on above: Performed By: #### 4 [id number] #### [facility] [address] [place] [address] Dr. Valeria Farris WBC 0-2 Abnormal NONE SEEN [facility] Comment on above: Performed By: #### 4 [id number] #### [facility] [address] [place], [place] [address] Dr. Valeria Farris No Panel Informationon 06-29 [facility] T4, Freeon 06-29-2022 Free T4 [Mass/Vol] 0.82 ng/dL Low 0.93 - 1. 70 ng/dL [facility] Interpretation and review of laboratory results Abnormal [facility] TSHon 06-29-2022 TSH Qn 2.16 m[IU]/L [facility] Thyroid Stim. Horm.on 2022 Thyroid Stim. Horm. 2.16 uIU/mL Normal 0.30-5.00 [facility] Comment on above: Performed By: #### T SH, FT4 #### [email or web address] [facility] [place], [place] [id number] Hot [employer] Machine Operator: Gideon Bullock MD Thyroxine, Freeon 06-29-2022 Thyroxine, Free 0.82 ng/dL Low 0.93-1.70 [facility] Comment on above: Performed By: #### T SH, FT4 #### [email or web address] [address] [place] [address] Hot Dim[employer] Machine Operator: Gideon Bullock MD US PREG BIOPHY W NON STRESSo n 06-26-2022 US PREG BIOPHY W NON STRESS EXAMINATION: US PREG BIOPHY W NON STRESS HISTORY: Gestational diabetes mellitus COMPARISON: No relevant comparison available. TECHNIQUE: Ultrasound biophysical profile was performed in the radiology department. non-reactive stress testing was performed by nursing staff in the birthing center. FINDINGS: BREATHING MOVEMENTS: 2.0 GROSS BODY MOVEMENTS: 2.0 TONE: 2.0 QUALITATIVE AMNIOTIC FLUID VOLUME: 2.0 PRESENTATION: BREECH HEART RATE: 148.4 bpm H.B./min AMNIOTIC FLUID VOLUME: 10.5 cm cm GESTATIONAL AGE: 33 weeks 1 days CONCLUSION: Total biophysical profile score: 8.0 Electronically authenticated by: ALINE GALICIA Date: 2022-06-26 07:50 Normal [facility] US PREG BIOPHY W NON STRESSo n 06-19-2022 US PREG BIOPHY W NON STRESS EXAMINATION: US PREG BIOPHY W NON STRESS HISTORY: Gestational diabetes mellitus COMPARISON: Ultrasound anatomy 03/28/2022 FINDINGS: BREATHING MOVEMENTS: 2.0 GROSS BODY MOVEMENTS: 2.0 TONE: 2.0 QUALITATIVE AMNIOTIC FLUID VOLUME: 2.0 PRESENTATION: Breech HEART RATE: 154.3 bpm bpm. AMNIOTIC FLUID VOLUME: 9.2 cm GESTATIONAL AGE: 32 weeks 1 days CONCLUSION: Total biophysical profile score 8.0. Electronically authenticated by: GERARD GONZALEZ Date: 2022-06-19 15:28 Normal [facility] CREATININE CLEARon 3 BODY SURF AREA 2.35 Normal [facility] Comment on above: Performed By: #### ALEX SUNRO #### [facility] [address] [place] [address] Dr. Valeria Farris CREA CLEARANCE 128.94 ml/min Critically high 75.00-115.00 [facility] Comment on above: Performed By: #### ALEX SUNRO #### [facility] [address] [place] [address] Dr. Valeria Farris CREA, 24 HR UR 882.73 mg/24 hr Normal 800.00-1,8 00 .00 [facility] Comment on above: Performed By: #### ALEX SUNRO #### [facility] [address] [place] [address] Dr. Valeria Farris Creatinine [Mass/Vol] 0.35 mg/dL Critically low 0.55-1.02 [facility] Comment on above: Performed By: #### ALEX SUNRO #### [facility] [address] [place] [address] Dr. Valeria Farris URINE CREAT 21.53 mg/dL Normal 20.00-300.00 [facility] Comment on above: Performed By: #### U ALEX LANDEROSRO #### [facility] [address] [place] [address] Dr. Valeria Farris PROTEIN 24HR URINEon 023 T PROT, 24 HR UR 241.9 mg/24 hr Critically high <=149.1 [facility] Comment on above: Performed By: #### P [id number] #### [facility] [address] [place] [address] Dr. Valeria Farris UR PROT 5.9 mg/dL Normal <=11.9 [facility] Comment on above: Performed By: #### P [id number] #### [facility] [address] [place] [address] Dr. Valeria Farris UR TOT VOL 4100 ml/24 HR Normal [facility] Comment on above: Performed By: #### P [id number] #### [facility] [address] [place] [address] Dr. Valeria Farris Performed By: #### U ACSIND, UMICRO #### [facility] [address] [place] [address] Dr. Valeria Farris CBC AUTO DIFFon 06-17-2022 BASO # 0.0 103/ul Normal 0.0-0.1 [facility] Comment on above: Performed By: #### G LU1HR #### [facility] [address] [place] [address] Dr. Valeria Farris Basophils/100 WBC (Bld) 0.4 % Normal 0.2-2.0 [facility] Comment on above: Performed By: #### G LU1HR #### [facility] [address] [place] [address] Dr. Valeria Farris EO # 0.2 103/ul Normal 0.0-0.7 [facility] Comment on above: Performed By: #### G LU1HR #### [facility] [address] [place] [address] Dr. Valeria Farris Eosinophils/100 WBC (Bld) 2.0 % Normal 0.9-7.0 [facility] Comment on above: Performed By: #### G LU1HR #### [facility] [address] [place] [address] Dr. Valeria Farris Erythrocyte distribution width (RBC) [Ratio] 13.3 % Normal 11.0-15.0 [facility] Comment on above: Performed By: #### G LU1HR #### [facility] [address] [place] [address] Dr. Valeria Farris Hematocrit (Bld) [Volume fraction] 31.8 % Critically low 36.0-48.0 [facility] Comment on above: Performed By: #### G LU1HR #### [facility] [address] [address] [address] Valeria Farris Hemoglobin (Bld) [Mass/Vol] 10.8 g/dL Critically low 12.0-16.0 [facility] Comment on above: Performed By: #### G LU1HR #### [facility] [address] [address] [address] Valeria Farris IG # 0.09 10e3/ul Critically high 0.00-0.03 [facility] Comment on above: Performed By: #### G LU1HR #### [facility] [address] [place] [address] Dr. Valeria Farris IG % 0.8 % Critically high 0.0-0.5 [facility] Comment on above: Performed By: #### G LU1HR #### [facility] [address] [place] [address] Dr. Valeria Farris LYMPH # 2.2 103/ul Normal 1.2-3.8 [facility] Comment on above: Performed By: #### G LU1HR #### [facility] [address] [place] [address] Dr. Valeria Farris Lymphocytes/100 WBC (Bld) 20.0 % Critically low 20.5-60.0 [facility] Comment on above: Performed By: #### G LU1HR #### [facility] [address] [place] [address] Dr. Valeria Farris MANUAL DIFF REQ NO Normal [facility] Comment on above: Performed By: #### G LU1HR #### [facility] [address] [address] [address] Valeria Farris MCH (RBC) [Entitic mass] 28.4 pg Normal 26.7-34.0 [facility] Comment on above: Performed By: #### G LU1HR #### [facility] [address] [place] [address] Dr. Valeria Farris MCHC (RBC) [Mass/Vol] 34.0 g/dL Normal 29.9-35.2 [facility] Comment on above: Performed By: #### G LU1HR #### [facility] [address] [place] [address] Dr. Valeria Farris MCV (RBC) [Entitic vol] 83.7 fL Normal 81.0-99.0 [facility] Comment on above: Performed By: #### G LU1HR #### [facility] [address] [place] [address] Dr. Valeria Farris MONO # 0.9 103/ul Critically high 0.3-0.8 [facility] Comment on above: Performed By: #### G LU1HR #### [facility] [address] [place] [address] Dr. Valeria Farris Monocytes/100 WBC (Bld) 7.9 % Normal 1.7-12.0 [facility] Comment on above: Performed By: #### G LU1HR #### [facility] [address] [place] [address] Dr. Valeria Farris NEUT # 7.7 103/ul Critically high 1.4-6.5 [facility] Comment on above: Performed By: #### G LU1HR #### [facility] [address] [place] [address] Dr. Valeria Farris Neutrophils/100 WBC (Bld) 68.9 % Normal 43.0-75.0 [facility] Comment on above: Performed By: #### G LU1HR #### [facility] [address] [place] [address] Dr. Valeria Farris Platelet mean volume (Bld) [Entitic vol] 10.7 fL Normal 9.5-13.5 [facility] Comment on above: Performed By: #### G LU1HR #### [facility] [address] [place] [address] Dr. Valeria Farris PLT 195 103/ul Normal 150-450 [facility] Comment on above: Performed By: #### G LU1HR #### [facility] [address] [address] [address] Valeria Farris RBC 3.80 106/ul Critically low 4.20-5.40 [facility] Comment on above: Performed By: #### G LU1HR #### [facility] [address] [address] [address] Valeria Farris WBC 11.2 103/ul Critically high 4.0-11.0 [facility] Comment on above: Performed By: #### G LU1HR #### [facility] [address] [address] [address] Valeria Farris LDHon 06-17-2022 LDH 230 U/L Normal 81-234 [facility] Comment on above: Performed By: #### P [id number] #### [facility] [address] [place] [address] Dr. Valeria Farris PROF 14(COMP METB)on 023 Albumin [Mass/Vol] 2.6 g/dL Critically low 3.4-5.0 [facility] Comment on above: Performed By: #### P ROT24U #### [facility] [address] [address] [address] Valeria Farris Albumin/Globulin [Mass ratio] 0.6 {ratio} Normal [facility] Comment on above: Performed By: #### P ROT24U #### [facility] [address] [address] [address] Valeria Farris ALP [Catalytic activity/Vol] 112 U/L Normal 46-116 [facility] Comment on above: Performed By: #### P ROT24U #### [facility] [address] [address] [address] Valeria Farris ALT [Catalytic activity/Vol] 18 U/L Normal 14-59 [facility] Comment on above: Performed By: #### P ROT24U #### [facility] [address] [address] [address] Valeria Farris Anion gap [Moles/Vol] 13.1 mmol/L Normal [facility] Comment on above: Performed By: #### P ROT24U #### [facility] [address] [address] [address] Valeria Farris AST [Catalytic activity/Vol] 22 U/L Normal 15-37 [facility] Comment on above: Performed By: #### P ROT24U #### [facility] [address] [address] [address] Valeria Farris Bilirubin [Mass/Vol] 0.2 mg/dL Normal 0.2-1.0 [facility] Comment on above: Performed By: #### P ROT24U #### [facility] [address] [address] [address] Valeria Farris Calcium [Mass/Vol] 9.1 mg/dL Normal 8.5-10.1 [facility] Comment on above: Performed By: #### P ROT24U #### [facility] [address] [address] [address] Valeria Farris Chloride [Moles/Vol] 103 mmol/L Normal 98-107 [facility] Comment on above: Performed By: #### P ROT24U #### [facility] [address] [address] [address] Valeria Farris CO2 [Moles/Vol] 25.8 mmol/L Normal 21.0-32.0 [facility] Comment on above: Performed By: #### P ROT24U #### [facility] [address] [address] [address] Valeria Farris Creatinine [Mass/Vol] 0.35 mg/dL Critically low 0.55-1.02 [facility] Comment on above: Performed By: #### P ROT24U #### [facility] [address] [address] [address] Valeria Farris EGFR-AF UZBEK >60 Normal >=60 [facility] Comment on above: Performed By: #### P ROT24U #### [facility] [address] [address] [address] Valeria Farris EGFR-NON AF UZBEK >60 Normal >=60 [facility] Comment on above: Performed By: #### P ROT24U #### [facility] [address] [address] [address] Valeria Farris Globulin (S) [Mass/Vol] 4.2 g/dL Normal [facility] Comment on above: Performed By: #### P ROT24U #### [facility] [address] [place] [address] Dr. Valeria Farris Glucose [Mass/Vol] 80 mg/dL Normal 74-106 [facility] Comment on above: Performed By: #### P ROT24U #### [facility] [address] [place] [address] Dr. Valeria Farris Potassium [Moles/Vol] 3.9 mmol/L Normal 3.5-5.1 [facility] Comment on above: Performed By: #### P ROT24U #### [facility] [address] [place] [address] Dr. Valeria Farris Protein [Mass/Vol] 6.8 g/dL Normal 6.4-8.2 [facility] Comment on above: Performed By: #### P ROT24U #### [facility] [address] [place] [address] Dr. Valeria Farris Sodium [Moles/Vol] 138 mmol/L Normal 136-145 [facility] Comment on above: Performed By: #### P ROT24U #### [facility] [address] [place] [address] Dr. Valeria Farris Urea nitrogen [Mass/Vol] 10.0 mg/dL Normal 7.0-18.0 [facility] Comment on above: Performed By: #### P ROT24U #### [facility] [address] [place] [address] Dr. Valeria Farris Urea nitrogen/Creatinine [Mass ratio] 28.6 mg/mg Normal [facility] Comment on above: Performed By: #### P ROT24U #### [facility] [address] [place] [address] Dr. Valeria Farris PTTon 06-17-2022 aPTT Coag (Bld) [Time] 26.4 s Normal 22.3-36.2 [facility] Comment on above: Performed By: #### P REGQNT #### [facility] [address] [address] [address] Valeria Farris UA (CLEAN/CATCH) FIRE SUPPORT SPECIALIST/MICRO I F IND.on 06-17-2022 Bilirubin Ql (U) Negative Normal NEGATIVE [facility] Comment on above: Performed By: #### P REGQNT #### [facility] [address] [place] [address] Dr. Valeria Farris Clarity (U) CLEAR Normal CLEAR [facility] Comment on above: Performed By: #### P REGQNT #### [facility] [address] [address] [address] Valeria Farris Color (U) LT. YELLOW Normal YELLOW [facility] Comment on above: Performed By: #### P REGQNT #### [facility] [address] [place] [address] Dr. Valeria Farris Glucose Ql (U) Negative Normal NEGATIVE [facility] Comment on above: Performed By: #### P REGQNT #### [facility] [address] [place] [address] Dr. Valeria Farris Hemoglobin Ql (U) Negative Normal NEGATIVE [facility] Comment on above: Performed By: #### P REGQNT #### [facility] [address] [place] [address] Dr. Valeria Farris Ketones Ql (U) Negative Normal NEGATIVE [facility] Comment on above: Performed By: #### P REGQNT #### [facility] [address] [place] [address] Dr. Valeria Farris LEUKOCYTES Negative Normal NEGATIVE [facility] Comment on above: Performed By: #### P REGQNT #### [facility] [address] [place] [address] Dr. Valeria Farris Nitrite Ql (U) Negative Normal NEGATIVE [facility] Comment on above: Performed By: #### P REGQNT #### [facility] [address] [place] [address] Dr. Valeria Farris pH (U) 6.5 [pH] Normal 5-9 [facility] Comment on above: Performed By: #### P REGQNT #### [facility] [address] [place] [address] Dr. Valeria Farris SPEC GRAVITY 1.010 Normal 1.005-<=1.02 5 [facility] Comment on above: Performed By: #### P REGQNT #### [facility] [address] [place] [address] Dr. Valeria Farris UA PROTEIN Negative Normal NEGATIVE/ TRACE [facility] Comment on above: Performed By: #### P REGQNT #### [facility] [address] [place] [address] Dr. Valeria Farris UR MICRO IND NOT INDICATED Normal [facility] Comment on above: Performed By: #### P REGQNT #### [facility] [address] [place] [address] Dr. Valeria Farris Urobilinogen Qn (U) 0.2 {Manolo'U}/dL Normal 0.2 - 1. 0 [facility] Comment on above: Performed By: #### P REGQNT #### [facility] [address] [place] [address] Dr. Valeria Farris URIC ACID SERUMon 06-17-2022 Urate [Mass/Vol] 3.3 mg/dL Normal 2.6-6.0 [facility] Comment on above: Performed By: #### P ROT24U #### [facility] [address] [place] [address] Dr. Valeria Farris PAP ACOG PANEL 2: 30 to 65on 05-29-2022 . . Normal [facility] Comment on above: Result Comment: Perf ormed at: WB Performed By: #### [id number] #### [facility] [address] [place] [address] Dr. Valeria Farris Age Gdln ACOG Testing 30-65 Normal [facility] Comment on above: Performed By: #### [id number] #### [facility] [address] [place] [address] Dr. Valeria Farris DIAGNOSIS: Comment Normal [facility] Comment on above: Result Comment: NEGA TIVE FOR INTRAEPITHELIAL LESION OR MALIGNANCY. Performed at: WB Performed By: #### [id number] #### [facility] [address] [place] [address] Dr. Valeria Farris HPV Aptima Negative Normal Negative [facility] Comment on above: Result Comment: This nucleic acid amplification test detects fourteen high-risk HPV types (16,18,31,33,35,39,45,51,52,56,58,59,66,68) without differentiation. Performed at: =G Performed By: #### [id number] #### [facility] [address] [place] [address] Dr. Valeria Farris HPV Genotype Reflex Comment Normal [facility] Comment on above: Result Comment: Crit eria not met, HPV Genotype not performed. Performed at: WB Performed By: #### [id number] #### [facility] [address] [place] [address] Dr. Valeria Farris Methodology: Comment Normal [facility] Comment on above: Result Comment: This liquid based ThinPrep(R) pap test was screened with the use of an image guided system. Performed at: WB Performed By: #### [id number] #### [facility] [address] [place] [address] Dr. Valeria Farris Note: Comment Normal [facility] Comment on above: Result Comment: The Pap smear is a screening test designed to aid in the detection of premalignant and malignant conditions of the uterine cervix. It is not a diagnostic procedure and should not be used as the sole means of detecting cervical cancer. Both false-positive and false-negative reports do occur. . Performed at: WB Performed By: #### [id number] #### [facility] [address] [place] [address] Dr. Valeria Farris Performed by: Comment Normal [facility] Comment on above: Result Comment: Jaye Simmons, Traffic Ii Manager (ASCP) Performed at: WB Performed By: #### [id number] #### [facility] [address] [place] [address] Dr. Valeria Farris Specimen adequacy: Comment Normal [facility] Comment on above: Result Comment: Sati sfactory for evaluation. Performed at: WB Performed By: #### [id number] #### [facility] [address] [place] [address] Dr. Valeria Farris POINT OF CARE GLUCOSEon Glucose [Mass/Vol] 122 mg/dL Critically high 74-106 [facility] Comment on above: Performed By: #### U ACSTRUPTI, UMICRO #### [facility] [address] [place] [address] Dr. Valeria Farris UA (CLEAN/CATCH) FIRE SUPPORT SPECIALIST/MICRO I F IND.on 05-29-2022 Bilirubin Ql (U) Negative Normal NEGATIVE [facility] Comment on above: Performed By: #### U ACSTRUPTI, UMICRO #### [facility] [address] [place] [address] Dr. Valeria Farris Clarity (U) CLEAR Normal CLEAR [facility] Comment on above: Performed By: #### U ACSTRUPTI UMICRO #### [facility] [address] [place] [address] Dr. Valeria Farris Color (U) LT. YELLOW Normal YELLOW [facility] Comment on above: Performed By: #### U ACSTRUPTI, UMICRO #### [facility] [address] [place] [address] Dr. Valeria Farris Glucose Ql (U) Negative Normal NEGATIVE [facility] Comment on above: Performed By: #### U ACSTRUPTI UMICRO #### [facility] [address] [address] [address] Valeria Farris Hemoglobin Ql (U) TRACE-INTACT Abnormal NEGATIVE [facility] Comment on above: Performed By: #### U ACSTRUPTI, UMICRO #### [facility] [address] [place] [address] Dr. Valeria Farris Ketones Ql (U) Negative Normal NEGATIVE [facility] Comment on above: Performed By: #### U ACSIND, UMICRO #### [facility] [address] [place] [address] Dr. Valeria Farris LEUKOCYTES Negative Normal NEGATIVE [facility] Comment on above: Performed By: #### U ACSIND, UMICRO #### [facility] [address] [address] [address] Valeira Farris Nitrite Ql (U) Negative Normal NEGATIVE [facility] Comment on above: Performed By: #### U ACSIND, UMICRO #### [facility] [address] [address] [address] Valeria Farris pH (U) 5.5 [pH] Normal 5-9 [facility] Comment on above: Performed By: #### U ACSIND, UMICRO #### [facility] [address] [address] [address] Valeria Farris SPEC GRAVITY 1.010 Normal 1.005-<=1.[address] [place] [address] Comment on above: Performed By: #### U ACSIND, UMICRO #### [facility] [address] [place] [address] Dr. Valeria Farris UA PROTEIN Negative Normal NEGATIVE/ TRACE [facility] Comment on above: Performed By: #### U ACSIND, UMICRO #### [facility] [address] [address] [address] Valeria Farris UR MICRO IND INDICATED Normal [facility] Comment on above: Performed By: #### U ACSIND, UMICRO #### [facility] [address] [address] [address] Valeria Farris Urobilinogen Qn (U) 0.2 {Manolo'U}/dL Normal 0.2 - 1. 0 [facility] Comment on above: Performed By: #### U ACSIND, UMICRO #### [facility] [address] [address] [address] Valeria Farris URINE MICROSCOPIC ONLYon BACTERIA NONE SEEN Normal NONE SEEN [facility] Comment on above: Performed By: #### U ACSIND, UMICRO #### [facility] [address] [address] [address] Valeria Farris Bacteria identified Cx Nom (U) NOT INDICATED Normal [facility] Comment on above: Performed By: #### U ACSTRUPTI, UMICRO #### [facility] [address] [place] [address] Dr. Valeria Farris CAST NONE SEEN Normal NONE SEEN [facility] Comment on above: Performed By: #### U ACSTRUPTI, UMICRO #### [facility] [address] [place] [address] Dr. Valeria Farris Crystals LM Nom (Urine sed) NONE SEEN Normal NONE SEEN [facility] Comment on above: Performed By: #### U ACSTRUPTI, UMICRO #### [facility] [address] [place] [address] Dr. Valeria Farris Epithelial cells LM Ql (Urine sed) FEW Abnormal NONE SEEN /RARE [facility] Comment on above: Performed By: #### U ACSTRUPTI ICRO #### [facility] [address] [place] [address] Dr. Valeria Farris MUCOUS NONE SEEN Normal NONE SEEN [facility] Comment on above: Performed By: #### U LETI ICRO #### [facility] [address] [place] [address] Dr. Valeria Farris RBC 0-2 Normal 0-2 [facility] Comment on above: Performed By: #### U LETI ICRO #### [facility] [address] [place] [address] Dr. Valeria Farris WBC NONE SEEN Normal NONE SEEN [facility] Comment on above: Performed By: #### U LETI ICRO #### [facility] [address] [place] [address] Dr. Valeria Farris CHLAMYDIA/GONOCOCCUS SARANYA (SW AB/URINE/PAPon 05-26-2022 Chlamydia trachomatis, SARANYA Negative Normal Negative [facility] Comment on above: Performed By: #### [id number] #### [facility] [address] [place] [address] Dr. Valeria Farris Neisseria gonorrhoeae, SARANYA Negative Normal Negative [facility] Comment on above: Performed By: #### [id number] #### [facility] [address] [place] [address] Dr. Valeria Farris AMYLASEon 3 Amylase [Catalytic activity/Vol] 30 U/L Normal 25-115 [facility] Comment on above: Performed By: #### P ROT24U #### [facility] [address] [place] [address] Dr. Valeria Farris CARDIAC VERNON 3-6on 3 CK [Catalytic activity/Vol] 119 U/L Normal 26-192 [facility] Comment on above: Performed By: #### P ROT24U #### [facility] [address] [place] [address] Dr. Valeria Farris CK.MB [Mass/Vol] ng/mL Normal <=3.60 [facility] Comment on above: Performed By: #### P ROT24U #### [facility] [address] [place] [address] Dr. Valeria Farris HSTROP <4.0 Normal 4.0-51.3 [facility] Comment on above: Result Comment: CUT- OFF POINTS HAVE BEEN ESTABLISHED BASED ON THE FOURTH UNIVERSAL DEFINITIONS OF MYOCARDIAL INFARCTION. THE UPPER REFERENCE LIMIT (URL) OF TROPONIN, DEFINED THE 99TH PERCENTILE OF cTnI DISTRIBUTION IN A REFERENCE POPULATION, HAS BEEN CONFIRMED THE DECISION THRESHOLD FOR ID DIAGNOSIS. Performed By: #### P ROT24U #### [facility] [address] [place] [address] Dr. Valeria Farris CARDIAC VERNON ADMITon 023 CK [Catalytic activity/Vol] 121 U/L Normal 26-192 [facility] Comment on above: Performed By: #### P ROT24U #### [facility] [address] [place] [address] Dr. Valeria Farris CK.MB [Mass/Vol] 0.51 ng/mL Normal <=3.60 [facility] Comment on above: Performed By: #### P ROT24U #### [facility] [address] [place] [address] Dr. Valeria Farris HSTROP 4.1 pg/mL Normal 4.0-51.3 [facility] Comment on above: Result Comment: CUT- OFF POINTS HAVE BEEN ESTABLISHED BASED ON THE FOURTH UNIVERSAL DEFINITIONS OF MYOCARDIAL INFARCTION. THE UPPER REFERENCE LIMIT (URL) OF TROPONIN, DEFINED THE 99TH PERCENTILE OF cTnI DISTRIBUTION IN A REFERENCE POPULATION, HAS BEEN CONFIRMED THE DECISION THRESHOLD FOR ID DIAGNOSIS. Performed By: #### P ROT24U #### [facility] [address] [place] [address] Dr. Valeria Farris MINI 19 ng/mL Normal 9-82 [facility] Comment on above: Performed By: #### P [id number] #### [facility] [address] [place] [address] Dr. Valeria Farris CBC AUTO DIFFon 05-25-2022 BASO # 0.0 103/ul Normal 0.0-0.1 [facility] Comment on above: Performed By: #### 4 [id number] #### [facility] [address] [place] [address] Dr. Valeria Farris Basophils/100 WBC (Bld) 0.2 % Normal 0.2-2.0 [facility] Comment on above: Performed By: #### 4 [id number] #### [facility] [address] [place] [address] Dr. Valeria Farris EO # 0.1 103/ul Normal 0.0-0.7 [facility] Comment on above: Performed By: #### 4 [id number] #### [facility] [address] [place] [address] Dr. Valeria Farris Eosinophils/100 WBC (Bld) 0.8 % Critically low 0.9-7.0 [facility] Comment on above: Performed By: #### 4 [id number] #### [facility] [address] [place] [address] Dr. Valeria Farris Erythrocyte distribution width (RBC) [Ratio] 13.5 % Normal 11.0-15.0 [facility] Comment on above: Performed By: #### 4 [id number] #### [facility] [address] [place] [address] Dr. Valeria Farris Hematocrit (Bld) [Volume fraction] 30.4 % Critically low 36.0-48.0 [facility] Comment on above: Performed By: #### 4 [id number] #### [facility] [address] [place] [address] Dr. Valeria Farris Hemoglobin (Bld) [Mass/Vol] 9.8 g/dL Critically low 12.0-16.0 [facility] Comment on above: Performed By: #### 4 [id number] #### [facility] [address] [place] [address] Dr. Valeria Farris IG # 0.21 10e3/ul Critically high 0.00-0.03 [facility] Comment on above: Performed By: #### 4 [id number] #### [facility] [address] [place] [address] Dr. Valeria Farris IG % 1.6 % Critically high 0.0-0.5 [facility] Comment on above: Performed By: #### 4 [id number] #### [facility] [address] [place] [address] Dr. Valeria Farris LYMPH # 2.8 103/ul Normal 1.2-3.8 [facility] Comment on above: Performed By: #### 4 [id number] #### [facility] [address] [place] [address] Dr. Valeria Farris Lymphocytes/100 WBC (Bld) 21.3 % Normal 20.5-60.0 [facility] Comment on above: Performed By: #### 4 [id number] #### [facility] [address] [place] [address] Dr. Valeria Farris MANUAL DIFF REQ NO Normal [facility] Comment on above: Performed By: #### 4 [id number] #### [facility] [address] [place] [address] Dr. Valeria Farris MCH (RBC) [Entitic mass] 28.2 pg Normal 26.7-34.0 [facility] Comment on above: Performed By: #### 4 [id number] #### [facility] [address] [place] [address] Dr. Valeria Farris MCHC (RBC) [Mass/Vol] 32.2 g/dL Normal 29.9-35.2 [facility] Comment on above: Performed By: #### 4 [id number] #### [facility] [address] [address] [address] Valeria Farris MCV (RBC) [Entitic vol] 87.6 fL Normal 81.0-99.0 [facility] Comment on above: Performed By: #### 4 [id number] #### [facility] [address] [place] [address] Dr. Valeria Farris MONO # 0.9 103/ul Critically high 0.3-0.8 [facility] Comment on above: Performed By: #### 4 [id number] #### [facility] [address] [place] [address] Dr. Valeria Farris Monocytes/100 WBC (Bld) 6.8 % Normal 1.7-12.0 [facility] Comment on above: Performed By: #### 4 [id number] #### [facility] [address] [place] [address] Dr. Valeria Farris NEUT # 9.0 103/ul Critically high 1.4-6.5 [facility] Comment on above: Performed By: #### 4 [id number] #### [facility] [address] [place] [address] Dr. Valeria Farris Neutrophils/100 WBC (Bld) 69.3 % Normal 43.0-75.0 [facility] Comment on above: Performed By: #### 4 [id number] #### [facility] [address] [place] [address] Dr. Valeria Farris Platelet mean volume (Bld) [Entitic vol] 10.5 fL Normal 9.5-13.5 [facility] Comment on above: Performed By: #### 4 [id number] #### [facility] [address] [place] [address] Dr. Valeria Farris PLT 187 103/ul Normal 150-450 [facility] Comment on above: Performed By: #### 4 [id number] #### [facility] [address] [place] [address] Dr. Valeria Farris RBC 3.47 106/ul Critically low 4.20-5.40 [facility] Comment on above: Performed By: #### 4 [id number] #### [facility] [address] [address] [address] Valeria Farris WBC 13.0 103/ul Critically high 4.0-11.0 [facility] Comment on above: Performed By: #### 4 [id number] #### [facility] [address] [address] [address] Valeria Farris CTA CHEST WO W CONon 023 CTA CHEST WO W CON EXAMINATION: CTA ELIJAH ST WO W CON HISTORY: CHEST PAIN, UNSPECIFIED COMPARISON: None. TECHNIQUE: CT angiography of the pulmonary arteries following the administration of intravenous contrast. Coronal and sagittal MIP (maximum intensity projection) images were performed. Dose reduction techniques were achieved by using automated exposure control and/or adjustment of mA and/or kV according to patient size and/or use of iterative reconstruction technique. FINDINGS: Of note, the examination is limited for evaluation of pulmonary emboli due to the phase of contrast, particularly in the upper lungs and within the main and central pulmonary arteries. There are no filling defects or vascular cutoffs to indicate a pulmonary embolus. The pulmonary arteries are normal in size. The lungs are clear. The central airways are patent. No pleural effusion or pneumothorax is seen. The thoracic aorta is normal in course and caliber without evidence of an aneurysm. The cardiac chambers appear normal in size. There is no pericardial effusion. There is no mediastinal, hilar, or axillary lymphadenopathy by CT size criteria. Images through the upper abdomen reveal no significant abnormalities. No suspicious or aggressive bone lesions are seen. No acute fracture is seen. IMPRESSION: 1. Limited evaluation for pulmonary emboli within the upper lungs and the main and central pulmonary arteries due to the phase of contrast. No evidence of a pulmonary embolism is seen within the limitations of the examination. 2. No acute cardiopulmonary abnormality. Electronically authenticated by: Daryl LOPEZ Date: 2022-05-25 01:55 Normal [facility] CULTURE URINEon 05-25-2022 CULTURE URINE Culture Observations : HEAVY GROWTH OF MIXED GENITAL RIO. NO POTENTIAL PATHOGENS SEEN. Normal [facility] Comment on above: Performed By: #### 4 [id number] #### [facility] [address] [address] [address] Valeria Farris LIPASEon 05-25-2022 Lipase [Catalytic activity/Vol] 54.0 U/L Critically low 73.0-393.0 [facility] Comment on above: Performed By: #### P [id number] #### [facility] [address] [place] [address] Dr. Valeria Farris PROF 14(COMP METB)on 023 Albumin [Mass/Vol] 2.5 g/dL Critically low 3.4-5.0 [facility] Comment on above: Performed By: #### P ROT24U #### [facility] [address] [place] [address] Dr. Valeria Farris Albumin/Globulin [Mass ratio] 0.6 {ratio} Normal [facility] Comment on above: Performed By: #### P ROT24U #### [facility] [address] [place] [address] Dr. Valeria Farris ALP [Catalytic activity/Vol] 97 U/L Normal 46-116 [facility] Comment on above: Performed By: #### P ROT24U #### [facility] [address] [place] [address] Dr. Valeria Farris ALT [Catalytic activity/Vol] 25 U/L Normal 14-59 [facility] Comment on above: Performed By: #### P ROT24U #### [facility] [address] [place] [address] Dr. Valeria Farris Anion gap [Moles/Vol] 14.2 mmol/L Normal [facility] Comment on above: Performed By: #### P ROT24U #### [facility] [address] [place] [address] Dr. Valeria Farris AST [Catalytic activity/Vol] 12 U/L Critically low 15-37 [facility] Comment on above: Performed By: #### P ROT24U #### [facility] [address] [place] [address] Dr. Valeria Farris Bilirubin [Mass/Vol] 0.2 mg/dL Normal 0.2-1.0 [facility] Comment on above: Performed By: #### P ROT24U #### [facility] [address] [address] [address] Valeria Farris Calcium [Mass/Vol] 8.5 mg/dL Normal 8.5-10.1 [facility] Comment on above: Performed By: #### P ROT24U #### [facility] [address] [address] [address] Valeria Farris Chloride [Moles/Vol] 103 mmol/L Normal 98-107 [facility] Comment on above: Performed By: #### P ROT24U #### [facility] [address] [address] [address] Valeria Farris CO2 [Moles/Vol] 23.0 mmol/L Normal 21.0-32.0 [facility] Comment on above: Performed By: #### P ROT24U #### [facility] [address] [place] [address] Dr. Valeria Farris Creatinine [Mass/Vol] 0.39 mg/dL Critically low 0.55-1.02 [facility] Comment on above: Performed By: #### P ROT24U #### [facility] [address] [address] [address] Valeria Farris EGFR-AF UZBEK >60 Normal >=60 [facility] Comment on above: Performed By: #### P ROT24U #### [facility] [address] [place] [address] Dr. Valeria Farris EGFR-NON AF UZBEK >60 Normal >=60 [facility] Comment on above: Performed By: #### P ROT24U #### [facility] [address] [place] [address] Dr. Valeria Farris Globulin (S) [Mass/Vol] 4.0 g/dL Normal [facility] Comment on above: Performed By: #### P ROT24U #### [facility] [address] [address] [address] Valeria Farris Glucose [Mass/Vol] 113 mg/dL Critically high 74-106 [facility] Comment on above: Performed By: #### P ROT24U #### [facility] [address] [place] [address] Dr. Valeria Farris Potassium [Moles/Vol] 3.2 mmol/L Critically low 3.5-5.1 [facility] Comment on above: Performed By: #### P ROT24U #### [facility] [address] [place] [address] Dr. Valeria Farris Protein [Mass/Vol] 6.5 g/dL Normal 6.4-8.2 [facility] Comment on above: Performed By: #### P ROT24U #### [facility] [address] [place] [address] Dr. Valeria Farris Sodium [Moles/Vol] 137 mmol/L Normal 136-145 [facility] Comment on above: Performed By: #### P ROT24U #### [facility] [address] [place] [address] Dr. Valeria Farris Urea nitrogen [Mass/Vol] 8.0 mg/dL Normal 7.0-18.0 [facility] Comment on above: Performed By: #### P ROT24U #### [facility] [address] [place] [address] Dr. Valeria Farris Urea nitrogen/Creatinine [Mass ratio] 20.5 mg/mg Normal [facility] Comment on above: Performed By: #### P ROT24U #### [facility] [address] [place] [address] Dr. Valeria Farris UA (CLEAN/CATCH) FIRE SUPPORT SPECIALIST/MICRO I F IND.on 05-25-2022 Bilirubin Ql (U) Negative Normal NEGATIVE [facility] Comment on above: Performed By: #### G LU1HR #### [facility] [address] [place] [address] Dr. Valeria Farris Clarity (U) CLEAR Normal CLEAR [facility] Comment on above: Performed By: #### G LU1HR #### [facility] [address] [place] [address] Dr. Valeria Farris Color (U) YELLOW Normal YELLOW [facility] Comment on above: Performed By: #### G LU1HR #### [facility] [address] [place] [address] Dr. Valeria Farris Glucose Ql (U) Negative Normal NEGATIVE [facility] Comment on above: Performed By: #### G LU1HR #### [facility] [address] [place] [address] Dr. Valeria Farris Hemoglobin Ql (U) TRACE-INTACT Abnormal NEGATIVE [facility] Comment on above: Performed By: #### G LU1HR #### [facility] [address] [place] [address] Dr. Valeria Farris Ketones Ql (U) TRACE Abnormal NEGATIVE [facility] Comment on above: Performed By: #### G LU1HR #### [facility] [address] [place] [address] Dr. Valeria Farris LEUKOCYTES Negative Normal NEGATIVE [facility] Comment on above: Performed By: #### G LU1HR #### [facility] [address] [place] [address] Dr. Valeria Farris Nitrite Ql (U) Negative Normal NEGATIVE [facility] Comment on above: Performed By: #### G LU1HR #### [facility] [address] [place] [address] Dr. Valeria Farris pH (U) 6.0 [pH] Normal 5-9 [facility] Comment on above: Performed By: #### G LU1HR #### [facility] [address] [place] [address] Dr. Valeria Farris SPEC GRAVITY >=1.030 Abnormal 1.005-<=1.02 5 [facility] Comment on above: Performed By: #### G LU1HR #### [facility] [address] [place] [address] Dr. Valeria Farris UA PROTEIN Negative Normal NEGATIVE/ TRACE [facility] Comment on above: Performed By: #### G LU1HR #### [facility] [address] [place] [address] Dr. Valeria Farris UR MICRO IND INDICATED Normal [facility] Comment on above: Performed By: #### G LU1HR #### [facility] [address] [place] [address] Dr. Valeria Farris Urobilinogen Qn (U) 0.2 {Manolo'U}/dL Normal 0.2 - 1. 0 [facility] Comment on above: Performed By: #### G LU1HR #### [facility] [address] [place] [address] Dr. Valeria Farris URINE MICROSCOPIC ONLYon BACTERIA SMALL Abnormal NONE SEEN [facility] Comment on above: Performed By: #### G LU1HR #### [facility] [address] [place] [address] Dr. Valeria Farris Bacteria identified Cx Nom (U) INDICATED Normal [facility] Comment on above: Performed By: #### G LU1HR #### [facility] [address] [place] [address] Dr. Valeria Farris CA OX CRYSTALS FEW Normal [facility] Comment on above: Performed By: #### G LU1HR #### [facility] [address] [place] [address] Dr. Valeria Farris CAST NONE SEEN Normal NONE SEEN [facility] Comment on above: Performed By: #### G LU1HR #### [facility] [address] [place] [address] Dr. Valeria Farris Crystals LM Nom (Urine sed) SEEN Abnormal NONE SEEN [facility] Comment on above: Performed By: #### G LU1HR #### [facility] [address] [place] [address] Dr. Valeria Farris Epithelial cells LM Ql (Urine sed) MANY Abnormal NONE SEEN /RARE [facility] Comment on above: Performed By: #### G LU1HR #### [facility] [address] [place] [address] Dr. Valeria Farris MUCOUS TRACE Abnormal NONE SEEN [facility] Comment on above: Performed By: #### G LU1HR #### [facility] [address] [place] [address] Dr. Valeria Farris RBC 2-5 Abnormal 0-2 [facility] Comment on above: Performed By: #### G LU1HR #### [facility] [address] [place] [address] Dr. Valeria Farris WBC NONE SEEN Normal NONE SEEN [facility] Comment on above: Performed By: #### G LU1HR #### [facility] [address] [address] [address] Valeria Farris VAGINITIS/VAGINOSIS DNA PROB Sam 05-25-2022 Litzy species Negative Normal Negative [facility] Comment on above: Performed By: #### P REGQNT #### [facility] [address] [address] [address] Valeria Farris Gardnerella vaginalis Positive Abnormal Negative [facility] Comment on above: Performed By: #### P REGQNT #### [facility] [address] [address] [address] Valeria Farris Trichomonas vaginalis Negative Normal Negative [facility] Comment on above: Performed By: #### P REGQNT #### [facility] [address] [place] [address] Dr. Valeria Farris Hemoglobin A1Con 05-18-2022 Glucose [Mass/Vol] 105 mg/dL Normal [facility] Comment on above: Result Comment: The ADA and AACC recommend providing the estimated average glucose result to permit better patient understanding of their HBA1c result. Performed By: #### N ATER #### [address] [address] [employer] Operator: Gideon Bullock MD HbA1c (Bld) [Mass fraction] 5.3 % Normal 4.0-6.0 [facility] Comment on above: Performed By: #### N ATER #### [address] [address] [employer] Operator: Gideon Bullock MD Shannon Kiton 05-18-2022 Shannon [facility] Comment on above: Performed By: #### N ATER #### [address] [address] [employer] Operator: Gideon Bullock MD Protein,Tot,Dudley Uron 2022 Creatinine [Mass/Vol] 47.7 mg/dL Normal 28.0-217.0 [facility] Comment on above: Performed By: #### T SH, FT4 #### [address] [address] [employer] Operator: Gideon Bullock MD Tot Prot. Conc. 6 mg/dL Normal [facility] Comment on above: Result Comment: No n ormal range established. Performed By: #### T SH, FT4 #### [facility] [employer] [address] [place] [id number] [employer] Operator: Gideon Bullock MD TP/Cre Ratio 0.13 Normal 0.00-0.20 [facility] Comment on above: Performed By: #### T SH, FT4 #### [facility] [employer] [address] [place] [address] [employer] Operator: Gideon Bullock MD Thyroid Stim. Horm.on 2022 Thyroid Stim. Horm. 3.02 uIU/mL Normal 0.30-5.00 [facility] Comment on above: Performed By: #### T SH, FT4 #### [facility] [employer] [address] [place] [address] [employer] Operator: Gideon Bullock MD Thyroxine, Freeon 05-18-2022 Thyroxine, Free 0.85 ng/dL Low 0.93-1.70 [facility] Comment on above: Performed By: #### T SH, FT4 #### [address] [address] [employer] Operator: Gideon Bullock MD UA (CLEAN/CATCH) FIRE SUPPORT SPECIALIST/MICRO I F IND.on 05-04-2022 Bilirubin Ql (U) Negative Normal NEGATIVE [facility] Comment on above: Performed By: #### P REGQNT #### [facility] [address] [place] [address] Dr. Valeria Farris Clarity (U) CLEAR Normal CLEAR [facility] Comment on above: Performed By: #### P REGQNT #### [facility] [address] [address] [address] Valeria Farris Color (U) LT. YELLOW Normal YELLOW [facility] Comment on above: Performed By: #### P REGQNT #### [facility] [address] [place] [address] Dr. Valeria Farris Glucose Ql (U) Negative Normal NEGATIVE [facility] Comment on above: Performed By: #### P REGQNT #### [facility] [address] [place] [address] Dr. Valeria Farris Hemoglobin Ql (U) SMALL Abnormal NEGATIVE [facility] Comment on above: Performed By: #### P REGQNT #### [facility] [address] [place] [address] Dr. Valeria Farris Ketones Ql (U) TRACE Abnormal NEGATIVE [facility] Comment on above: Performed By: #### P REGQNT #### [facility] [address] [place] [address] Dr. Valeria Farris LEUKOCYTES Negative Normal NEGATIVE [facility] Comment on above: Performed By: #### P REGQNT #### [facility] [address] [place] [address] Dr. Valeria Farris Nitrite Ql (U) Negative Normal NEGATIVE [facility] Comment on above: Performed By: #### P REGQNT #### [facility] [address] [place] [address] Dr. Valeria Farris pH (U) 6.5 [pH] Normal 5-9 [facility] Comment on above: Performed By: #### P REGQNT #### [facility] [address] [place] [address] Dr. Valeria Farris SPEC GRAVITY 1.025 Normal 1.005-<=1.02 5 [facility] Comment on above: Performed By: #### P REGQNT #### [facility] [address] [place] [address] Dr. Valeria Farris UA PROTEIN Negative Normal NEGATIVE/ TRACE [facility] Comment on above: Performed By: #### P REGQNT #### [facility] [address] [place] [address] Dr. Valeria Farris UR MICRO IND INDICATED Normal [facility] Comment on above: Performed By: #### P REGQNT #### [facility] [address] [place] [address] Dr. Valeria Farris Urobilinogen Qn (U) 0.2 {Manolo'U}/dL Normal 0.2 - 1. 0 [facility] Comment on above: Performed By: #### P REGQNT #### [facility] [address] [place] [address] Dr. Valeria Farris URINE MICROSCOPIC ONLYon BACTERIA NONE SEEN Normal NONE SEEN [facility] Comment on above: Performed By: #### U ACSIND, UMICRO #### [facility] [address] [place] [address] Dr. Valeria Farris Bacteria identified Cx Nom (U) NOT INDICATED Normal [facility] Comment on above: Performed By: #### U ACSIND, UMICRO #### [facility] [address] [place] [address] Dr. Valeria Farris CAST NONE SEEN Normal NONE SEEN [facility] Comment on above: Performed By: #### U ACSIND, UMICRO #### [facility] [address] [place] [address] Dr. Valeria Farris Crystals LM Nom (Urine sed) NONE SEEN Normal NONE SEEN [facility] Comment on above: Performed By: #### U ACSIND, UMICRO #### [facility] [address] [place] [address] Dr. Valeria Farris Epithelial cells LM Ql (Urine sed) FEW Abnormal NONE SEEN /RARE [facility] Comment on above: Performed By: #### U ACSIND, UMICRO #### [facility] [address] [place] [address] Dr. Valeria Farris MUCOUS TRACE Abnormal NONE SEEN [facility] Comment on above: Performed By: #### U ACSIND, UMICRO #### [facility] [address] [place] [address] Dr. Valeria Farris RBC 0-2 Normal 0-2 [facility] Comment on above: Performed By: #### U ACSALEX LYLESRO #### [facility] [address] [place] [address] Dr. Valeria Farris WBC NONE SEEN Normal NONE SEEN [facility] Comment on above: Performed By: #### U ACSTRUPTI UMICRO #### [facility] [address] [place] [address] Dr. Valeria Farris AMYLASEon 04-12-2022 Amylase [Catalytic activity/Vol] 31 U/L Normal 25-115 [facility] Comment on above: Performed By: #### G LU1HR #### [facility] [address] [place] [address] Dr. Valeria Farris BUNon 04-12-2022 Urea nitrogen [Mass/Vol] 7.0 mg/dL Normal 7.0-18.0 [facility] Comment on above: Performed By: #### G LU1HR #### [facility] [address] [place] [address] Dr. Valeria Farris CBC AUTO DIFFon 04-12-2022 BASO # 0.0 103/ul Normal 0.0-0.1 [facility] Comment on above: Performed By: #### P REGQNT #### [facility] [address] [place] [address] Dr. Valeria Farris Basophils/100 WBC (Bld) 0.3 % Normal 0.2-2.0 [facility] Comment on above: Performed By: #### P REGQNT #### [facility] [address] [place] [address] Dr. Valeria Farris EO # 0.3 103/ul Normal 0.0-0.7 [facility] Comment on above: Performed By: #### P REGQNT #### [facility] [address] [place] [address] Dr. Valeria Farris Eosinophils/100 WBC (Bld) 2.3 % Normal 0.9-7.0 [facility] Comment on above: Performed By: #### P REGQNT #### [facility] [address] [address] [address] Valeria Farris Erythrocyte distribution width (RBC) [Ratio] 12.8 % Normal 11.0-15.0 [facility] Comment on above: Performed By: #### P REGQNT #### [facility] [address] [address] [address] Valeria Farris Hematocrit (Bld) [Volume fraction] 34.9 % Critically low 36.0-48.0 [facility] Comment on above: Performed By: #### P REGQNT #### [facility] [address] [address] [address] Valeria Farris Hemoglobin (Bld) [Mass/Vol] 11.8 g/dL Critically low 12.0-16.0 [facility] Comment on above: Performed By: #### P REGQNT #### [facility] [address] [place] [address] Dr. Valeria Farris IG # 0.08 10e3/ul Critically high 0.00-0.03 [facility] Comment on above: Performed By: #### P REGQNT #### [facility] [address] [place] [address] Dr. Valeria Farris IG % 0.7 % Critically high 0.0-0.5 [facility] Comment on above: Performed By: #### P REGQNT #### [facility] [address] [place] [address] Dr. Valeria Farris LYMPH # 2.6 103/ul Normal 1.2-3.8 [facility] Comment on above: Performed By: #### P REGQNT #### [facility] [address] [place] [address] Dr. Valeria Farris Lymphocytes/100 WBC (Bld) 22.4 % Normal 20.5-60.0 [facility] Comment on above: Performed By: #### P REGQNT #### [facility] [address] [place] [address] Dr. Valeria Farris MANUAL DIFF REQ NO Normal [facility] Comment on above: Performed By: #### P REGQNT #### [facility] [address] [address] [address] Valeria Farris MCH (RBC) [Entitic mass] 28.5 pg Normal 26.7-34.0 [facility] Comment on above: Performed By: #### P REGQNT #### [facility] [address] [address] [address] Valeria Farris MCHC (RBC) [Mass/Vol] 33.8 g/dL Normal 29.9-35.2 [facility] Comment on above: Performed By: #### P REGQNT #### [facility] [address] [address] [address] Valeria Farris MCV (RBC) [Entitic vol] 84.3 fL Normal 81.0-99.0 [facility] Comment on above: Performed By: #### P REGQNT #### [facility] [address] [place] [address] Dr. Valeria Farris MONO # 0.8 103/ul Normal 0.3-0.8 [facility] Comment on above: Performed By: #### P REGQNT #### [facility] [address] [place] [address] Dr. Valeria Farris Monocytes/100 WBC (Bld) 6.8 % Normal 1.7-12.0 [facility] Comment on above: Performed By: #### P REGQNT #### [facility] [address] [place] [address] Dr. Valeria Farris NEUT # 7.8 103/ul Critically high 1.4-6.5 [facility] Comment on above: Performed By: #### P REGQNT #### [facility] [address] [place] [address] Dr. Valeria Farris Neutrophils/100 WBC (Bld) 67.5 % Normal 43.0-75.0 [facility] Comment on above: Performed By: #### P REGQNT #### [facility] [address] [place] [address] Dr. Valeria Farris Platelet mean volume (Bld) [Entitic vol] 10.3 fL Normal 9.5-13.5 [facility] Comment on above: Performed By: #### P REGQNT #### [facility] [address] [address] [address] Valeria Farris PLT 195 103/ul Normal 150-450 [facility] Comment on above: Performed By: #### P REGQNT #### [facility] [address] [address] [address] Valeria Farris RBC 4.14 106/ul Critically low 4.20-5.40 [facility] Comment on above: Performed By: #### P REGQNT #### [facility] [address] [address] [address] Valeria Farris WBC 11.5 103/ul Critically high 4.0-11.0 [facility] Comment on above: Performed By: #### P REGQNT #### [facility] [address] [place] [address] Dr. Valeria Farris CREATININEon 04-12-2022 Creatinine [Mass/Vol] 0.44 mg/dL Critically low 0.55-1.02 [facility] Comment on above: Performed By: #### G LU1HR #### [facility] [address] [place] [address] Dr. Valeria Farris EGFR-AF UZBEK >60 Normal >=60 [facility] Comment on above: Performed By: #### G LU1HR #### [facility] [address] [place] [address] Dr. Valeria Farris EGFR-NON AF UZBEK >60 Normal >=60 [facility] Comment on above: Performed By: #### G LU1HR #### [facility] [address] [address] [address] Valeria Farris LIPASEon 04-12-2022 Lipase [Catalytic activity/Vol] 62.0 U/L Critically low 73.0-393.0 [facility] Comment on above: Performed By: #### G LU1HR #### [facility] [address] [place] [address] Dr. Valeria Farris LIVER PROFILEon 04-12-2022 Albumin [Mass/Vol] 2.9 g/dL Critically low 3.4-5.[address] [facility] Comment on above: Performed By: #### G LU1HR #### [facility] [address] [place] [address] Dr. Valeria Farris Albumin/Globulin [Mass ratio] 0.7 {ratio} Normal [facility] Comment on above: Performed By: #### G LU1HR #### [facility] [address] [place] [address] Dr. Valeria Farris ALP [Catalytic activity/Vol] 86 U/L Normal 46-116 [facility] Comment on above: Performed By: #### G LU1HR #### [facility] [address] [place] [address] Dr. Valeria Farris ALT [Catalytic activity/Vol] 14 U/L Normal 14-59 [facility] Comment on above: Performed By: #### G LU1HR #### [facility] [address] [place] [address] Dr. Valeria Farris AST [Catalytic activity/Vol] 12 U/L Critically low 15-37 [facility] Comment on above: Performed By: #### G LU1HR #### [facility] [address] [place] [address] Dr. Valeria Farris BILI, CONJUGATED 0.1 mg/dL Normal 0.0-0.2 [facility] Comment on above: Performed By: #### G LU1HR #### [facility] [address] [place] [address] Dr. Valeria Farris Bilirubin [Mass/Vol] 0.2 mg/dL Normal 0.2-1.0 [facility] Comment on above: Performed By: #### G LU1HR #### [facility] [address] [place] [address] Dr. Valeria Farris Globulin (S) [Mass/Vol] 4.2 g/dL Normal [facility] Comment on above: Performed By: #### G LU1HR #### [facility] [address] [place] [address] Dr. Valeria Farris Protein [Mass/Vol] 7.1 g/dL Normal 6.4-8.2 [facility] Comment on above: Performed By: #### G LU1HR #### [facility] [address] [place] [address] Dr. Valeria Farris PROF 14(COMP METB)on 022 Anion gap [Moles/Vol] 13.1 mmol/L Normal [facility] Comment on above: Performed By: #### G LU1HR #### [facility] [address] [place] [address] Dr. Valeria Farris Calcium [Mass/Vol] 8.7 mg/dL Normal 8.5-10.1 [facility] Comment on above: Performed By: #### G LU1HR #### [facility] [address] [place] [address] Dr. Valeria Farris Chloride [Moles/Vol] 100 mmol/L Normal 98-107 [facility] Comment on above: Performed By: #### G LU1HR #### [facility] [address] [place] [address] Dr. Valeria Farris CO2 [Moles/Vol] 25.4 mmol/L Normal 21.0-32.0 [facility] Comment on above: Performed By: #### G LU1HR #### [facility] [address] [place] [address] Dr. Valeria Farris Glucose [Mass/Vol] 87 mg/dL Normal 74-106 [facility] Comment on above: Performed By: #### G LU1HR #### [facility] [address] [place] [address] Dr. Valeria Farris Potassium [Moles/Vol] 3.5 mmol/L Normal 3.5-5.1 [facility] Comment on above: Performed By: #### G LU1HR #### [facility] [address] [place] [address] Dr. Valeria Farris Sodium [Moles/Vol] 135 mmol/L Critically low 136-145 [facility] Comment on above: Performed By: #### G LU1HR #### [facility] [address] [place] [address] Dr. Valeria Farris Urea nitrogen/Creatinine [Mass ratio] 15.9 mg/mg Normal [facility] Comment on above: Performed By: #### G LU1HR #### [facility] [address] [address] [address] Valeria Farris US PREG CERVICAL LENGTHon US PREG CERVICAL LENGTH EXAMINATION: US PREG CERVICAL LENGTH HISTORY: Pain ; midline pelvic pain COMPARISON: Ultrasound anatomy 03/28/2022 TECHNIQUE: Transabdominal and transvaginal sonographic examination for cervical length. FINDINGS: CERVIX LENGTH: 5.1 cm; closed. POSITION: Cephalic HEART RATE: 159 bpm Age by EDC: 22 weeks 2 days SUNSHINE by EDC: 08/13/2022 IMPRESSION: 1. Closed cervix 5.1 cm in length. 2. Single live intrauterine . Electronically authenticated by: GERARD GONZALEZ Date: 2022-04-12 16:39 Normal [facility] UA (CLEAN/CATCH) FIRE SUPPORT SPECIALIST/MICRO I F IND.on 04-11-2022 Bilirubin Ql (U) Negative Normal NEGATIVE [facility] Comment on above: Performed By: #### U ACSTRUPTI UMICRO #### [facility] [address] [address] [address] Valeria Farris Clarity (U) CLEAR Normal CLEAR [facility] Comment on above: Performed By: #### U ACSTRUPTI UMICRO #### [facility] [address] [address] [address] Valeria Farris Color (U) LT. YELLOW Normal YELLOW [facility] Comment on above: Performed By: #### U ACSTRUPTI UMICRO #### [facility] [address] [address] [address] Valeria Farris Glucose Ql (U) Negative Normal NEGATIVE [facility] Comment on above: Performed By: #### U ACSTRUPTI UMICRO #### [facility] [address] [address] [address] Valeria Farris Hemoglobin Ql (U) TRACE-INTACT Abnormal NEGATIVE [facility] Comment on above: Performed By: #### U ACSIND UMICRO #### [facility] [address] [place] [address] Dr. Valeria Farris Ketones Ql (U) Negative Normal NEGATIVE [facility] Comment on above: Performed By: #### U ACSIND, UMICRO #### [facility] [address] [place] [address] Dr. Valeria Farris LEUKOCYTES Negative Normal NEGATIVE [facility] Comment on above: Performed By: #### U ACSIND UMICRO #### [facility] [address] [address] [address] Valeria Farris Nitrite Ql (U) Negative Normal NEGATIVE [facility] Comment on above: Performed By: #### U ACSTRUPTI UMICRO #### [facility] [address] [place] [address] Dr. Valeria Farris pH (U) 6.5 [pH] Normal 5-9 [facility] Comment on above: Performed By: #### U ACSTRUPTI UMICRO #### [facility] [address] [place] [address] Dr. Valeria Farris SPEC GRAVITY 1.010 Normal 1.005-<=1.02 5 [facility] Comment on above: Performed By: #### U ACSTRUPTI UMICRO #### [facility] [address] [place] [address] Dr. Valeria Farris UA PROTEIN Negative Normal NEGATIVE/ TRACE [facility] Comment on above: Performed By: #### U ACSTRUPTI UMICRO #### [facility] [address] [place] [address] Dr. Valeria Farris UR MICRO IND INDICATED Normal [facility] Comment on above: Performed By: #### U ACSIND, UMICRO #### [facility] [address] [place] [address] Dr. Valeria Farris Urobilinogen Qn (U) 0.2 {Manolo'U}/dL Normal 0.2 - 1. 0 [facility] Comment on above: Performed By: #### U ACSIND, UMICRO #### [facility] [address] [place] [address] Dr. Valeria Farris URINE MICROSCOPIC ONLYon BACTERIA NONE SEEN Normal NONE SEEN [facility] Comment on above: Performed By: #### U ACSIND, UMICRO #### [facility] [address] [place] [address] Dr. Valeria Farris Bacteria identified Cx Nom (U) NOT INDICATED Normal [facility] Comment on above: Performed By: #### U ACSIND, UMICRO #### [facility] [address] [address] [address] Valeria Farris CAST NONE SEEN Normal NONE SEEN [facility] Comment on above: Performed By: #### U ACSIND, UMICRO #### [facility] [address] [address] [address] Valeria Farris Crystals LM Nom (Urine sed) NONE SEEN Normal NONE SEEN [facility] Comment on above: Performed By: #### U ACSIND, UMICRO #### [facility] [address] [place] [address] Dr. Valeria Farris Epithelial cells LM Ql (Urine sed) FEW Abnormal NONE SEEN /RARE [facility] Comment on above: Performed By: #### U ACSIND, UMICRO #### [facility] [address] [place] [address] Dr. Valeria Farris MUCOUS NONE SEEN Normal NONE SEEN [facility] Comment on above: Performed By: #### U ACSIND, UMICRO #### [facility] [address] [place] [address] Dr. Valeria Farris RBC 0-2 Normal 0-2 [facility] Comment on above: Performed By: #### U ACSIND, UMICRO #### [facility] [address] [place] [address] Dr. Valeria Farris WBC 0-2 Abnormal NONE SEEN [facility] Comment on above: Performed By: #### U ACSIND, UMICRO #### [facility] [address] [place] [address] Dr. Valeria Farris US PREG ANATOMY SINGLEon US PREG ANATOMY SINGLE EXAMINATION: US PREG ANATOMY SINGLE HISTORY: Patient currently COMPARISON: No relevant comparison available. TECHNIQUE: Transabdominal sonographic examination was performed for obstetrical and evaluation. FINDINGS: Number: 1 Heart Rate: 163.0 bpm H.B. /min Amniotic Fluid Volume: Subjectively normal Placental Location: Posterior, grade 0. Placental edge 3.6 cm from the internal os Cervix Length: 5.7 cm, closed Normal structures: Cerebellum. Choroid plexus. Cisterna magna. Lateral cerebral ventricles. Orbits. Midline falx. Hard palate. 4-chamber heart. RVOT. LVOT. Stomach. Kidneys. Bladder. Umbilical cord insertion into abdomen. 3 vessel cord. Cervical spine. Thoracic spine. Lumbar spine. Sacral spine. Right upper extremity. Left upper extremity. Right lower extremity. Left lower extremity. Suboptimally seen: None. Abnormalities/Other: None BIOMETRY: BPD: 5.0 cm 21 weeks 2 days , 85% HC: 17.8 cm 20 weeks 2 days, 42% AC: 16.8 cm, 21 weeks 6 days, 87% FL: 3.2 cm 20 weeks 0 days, 33% EFW:388 g, 14 ounces, 81%; FL/AC: 19.17 FL/BPD: 63.9 HC/AC: 1.06 GESTATIONAL AGE: Age by EDC: 20 weeks 2 days SUNSHINE by EDC: 08/13/2022 Age by current US: 20 weeks 6 days SUNSHINE by current US: 08/09/2022 IMPRESSION: Normal exam *Reference: [employer] Practice Guideline for the performance of Obstetric Ultrasound Examinations, January 21, 2007. Electronically authenticated by: ALINE GALICIA Date: 2022-03-28 10:57 Normal [facility] XR SHOULDER RT 2V or >on XR SHOULDER RT 2V or > EXAM: XR SHOULDER RT 2V or > INDICATION: Pain. COMPARISON: None. TECHNIQUE: Right shoulder, 3 views. FINDINGS: No acute fracture or dislocation. Intact glenohumeral and acromioclavicular joints. Unremarkable soft tissues. IMPRESSION: Normal right shoulder. Electronically authenticated by: GILDARDO TAYLOR Date: 2022-03-19 08:36 Normal [facility] AFP TETRA PROFILE (MATERNAL) on 03-08-2022 AFP MoM 0.60 Normal [facility] Comment on above: Performed By: #### U DAPHNE LANDEROS #### [facility] [address] [address] [address] Valeria Farris AFP Value 15.2 ng/mL Normal [facility] Comment on above: Performed By: #### DAPHNE SUN #### [facility] [address] [address] [address] Valeria Farris Comment Comment Normal [facility] Comment on above: Result Comment: Nicolás Ramirez, Ph.D., [facility] Director . References: Available Upon Request. . Multiples Of Median Cutoffs Abbreviation Definitions For AFP Elevations IDD- Insulin Dep Diabetes Rodriguez 2.5 Black 2.8 OSBR- Open Spina Bifida IDD 2.0 Twins 4.5 Risk DSR Cutoff 1:270 DSR- Down Syndrome Risk T18 Cutoff 1:100 T18- Trisomy 18 . For further inquiries contact [facility] at [phone]. . This test was developed and its performance characteristics determined by [employer]. It has not been cleared or approved by the Food and Drug Administration. Performed By: #### ALEX SUNRO #### [facility] [address] [address] [address] Valeria Farris CHACE MoM 0.90 Normal [facility] Comment on above: Performed By: #### ALEX SUNRO #### [facility] [address] [address] [address] Valeria Farris CHACE Value 95.93 pg/mL Normal [facility] Comment on above: Performed By: #### ALEX SUNRO #### [facility] [address] [address] [address] Valeria Farris DSR (By Age) 1 IN 656 Normal [facility] Comment on above: Performed By: #### ALEX SUNRO #### [facility] [address] [address] [address] Valeria Farris DSR (Second Trimester) 1 IN 5782 Normal [facility] Comment on above: Performed By: #### U ALEX LANDEROSRO #### [facility] [address] [address] [address] Valeria Farris Gest. Age on Collection Date 16.7 WEEKS Normal [facility] Comment on above: Performed By: #### U ACSIND, UMICRO #### [facility] [address] [address] [address] Valeria Farris Gestat. Age Based On SUNSHINE Normal [facility] Comment on above: Result Comment: 07/23 Performed By: #### U ACSIND, UMICRO #### [facility] [address] [address] [address] Valeria Farris hCG MoM 0.61 Normal [facility] Comment on above: Performed By: #### U ACSIND, UMICRO #### [facility] [address] [address] [place] [address] m[IU]/mL Normal [facility] Comment on above: Performed By: #### U ACSIND, UMICRO #### [facility] [address] [address] [address] Valeria Farris Insulin Dep Diabetes No Normal [facility] Comment on above: Performed By: #### U ACSIND, UMICRO #### [facility] [address] [address] [address] Valeria Farris Interpretation Comment Normal [facility] Comment on above: Result Comment: Inte rpretation: Screen Negative This result is screen negative for OSB, Down Syndrome and Trisomy 18. The AFP MoM and patient specific risks calculated are based on the gestational age and the clinical information provided. This test can identify up to 80% of open neural tube defects. Closed neural tube defects and some open defects may not be detected by this test. The combination of maternal age, AFP, hCG, uE3, and CHACE identifies 75-80% of Down Syndrome. The combination of maternal age, AFP, hCG and uE3 identifies 60% of Trisomy 18 pregnancies. The [employer] recommends amniocentesis be offered to women age 35 and older. Recalculations are not recommended when gestational dating by LMP and ultrasound are within 10 days. Performed By: #### U ACSIND, UMICRO #### [facility] [address] [address] [address] Valeria Farris [age] Normal [facility] Comment on above: Performed By: #### U ACSIND, UMICRO #### [facility] [address] [address] [address] Valeria Farris Multiple Gestation No Normal [facility] Comment on above: Performed By: #### U ACSIND, UMICRO #### [facility] [address] [address] [address] Valeria Farris OS[place] 1 [place] [address] Normal [facility] Comment on above: Performed By: #### U ACSIND, UMICRO #### [facility] [address] [address] [address] Valeria Farris PDF . [facility] Comment on above: Performed By: #### U ACSIND, UMICRO #### [facility] [address] [address] [address] Valeria Farris Race Normal [facility] Comment on above: Performed By: #### U ACSIND, UMICRO #### [facility] [address] [address] [address] Valeria Farris Results Report Normal [facility] Comment on above: Performed By: #### U ACSIND, UMICRO #### [facility] [address] [address] [address] Valeria Farris T18 (By Age) 1:2556 Normal [facility] Comment on above: Performed By: #### U ACSTRUPTI, UMICRO #### [facility] [address] [address] [address] Valeria Farris T18 Risk Not increased Normal [facility] Comment on above: Performed By: #### U ACSIND, UMICRO #### [facility] [address] [address] [address] Valeria Farris Test Results: Negative Normal [facility] Comment on above: Performed By: #### U ACSIND, UMICRO #### [facility] [address] [address] [address] Valeria Farris uE3 MoM 0.75 Normal [facility] Comment on above: Performed By: #### U ACSTRUPTI, UMICRO #### [facility] [address] [address] [address] Valeria Farris uE3 Value 0.71 ng/mL Normal [facility] Comment on above: Performed By: #### U ACSTRUPTI, UMICRO #### [facility] [address] [place] [address] Dr. Valeria Farris GLUCOSE - 1HRon 03-03-2022 Glucose [Mass/Vol] 214 mg/dL Critically high 74-106 [facility] Comment on above: Performed By: #### G LU1HR #### [facility] [address] [place] [address] Dr. Valeria Farris HEPATITIS C VIRUS AB W/ REFL EX QUANTon 01-11-2022 HCV AB <0.1 Normal 0.0-0.9 [facility] Comment on above: Performed By: #### P REGQNT #### [facility] [address] [place] [address] Dr. Valeria Farris Interpretation: Comment Normal [facility] Comment on above: Result Comment: Nega tive Not infected with HCV, unless recent infection is suspected or other evidence exists to indicate HCV infection. Performed By: #### P REGQNT #### [facility] [address] [place] [address] Dr. Valeria Farris HEP B SURFACE ANTIGEN SCREEN on 01-10-2022 HBsAg Screen Negative Normal Negative [facility] Comment on above: Performed By: #### P REGQNT #### [facility] [address] [place] [address] Dr. Valeria Farris HIV 1 AND 2 WITH REFLEXon HIV Screen 4th Generation wRfx Non-Reactive Normal Non Reactive [facility] Comment on above: Result Comment: HIV Negative HIV-1/HIV-2 antibodies and HIV-1 p24 antigen were NOT detected. There is no laboratory evidence of HIV infection. Performed By: #### H IV12 #### [facility] [address] [place] [address] Dr. Valeria Farris RPR QUANTon 09-20-2022 Rapid Plasma Reagin, Quant Non-Reactive Normal NonRea<1:1 [facility] Comment on above: Result Comment: Plea se Note: This test does not meet current guidelines for screening and diagnosis of syphilis. This test is intended for following treatment response in patients being treated for syphilis infection. To screen for syphilis infection, a reflex cascade that includes both RPR and a treponema-specific assay should be utilized, such as Treponema pallidum (Syphilis) Screening [place] (591510) or Rapid Plasma Reagin (RPR) Test With Reflex to Quantitative RPR and Confirmatory Treponema pallidum Antibodies (207115). Performed By: #### R PRQ #### [facility] [address] [place] [address] Dr. Valeria Farris RUBELLA AB IGGon 01-10-2022 Rubella Antibodies, IgG 1.83 index Normal Immune >0.99 [facility] Comment on above: Result Comment: Non- immune <0.90 Equivocal 0.90 - 0.99 Immune >0.99 Performed By: #### U ACSIND, UMICRO #### [facility] [address] [place] [address] Dr. Valeria Farris CBC AUTO DIFFon 01-09-2022 BASO # 0.0 103/ul Normal 0.0-0.1 [facility] Comment on above: Performed By: #### 4 [id number] #### [facility] [address] [place] [address] Dr. Valeria Farris Basophils/100 WBC (Bld) 0.4 % Normal 0.2-2.0 [facility] Comment on above: Performed By: #### 4 [id number] #### [facility] [address] [place] [address] Dr. Valeria Farris EO # 0.3 103/ul Normal 0.0-0.7 [facility] Comment on above: Performed By: #### 4 [id number] #### [facility] [address] [place] [address] Dr. Valeria Farris Eosinophils/100 WBC (Bld) 3.5 % Normal 0.9-7.0 [facility] Comment on above: Performed By: #### 4 [id number] #### [facility] [address] [place] [address] Dr. Valeria Farris Erythrocyte distribution width (RBC) [Ratio] 13.6 % Normal 11.0-15.0 [facility] Comment on above: Performed By: #### 4 [id number] #### [facility] [address] [place] [address] Dr. Valeria Farris Hematocrit (Bld) [Volume fraction] 38.9 % Normal 36.0-48.0 [facility] Comment on above: Performed By: #### 4 [id number] #### [facility] [address] [place] [address] Dr. Valeria Farris Hemoglobin (Bld) [Mass/Vol] 12.9 g/dL Normal 12.0-16.0 [facility] Comment on above: Performed By: #### 4 [id number] #### [facility] [address] [place] [address] Dr. Valeria Farris IG # 0.04 10e3/ul Critically high 0.00-0.03 [facility] Comment on above: Performed By: #### 4 [id number] #### [facility] [address] [place] [address] Dr. Valeria Farris IG % 0.4 % Normal 0.0-0.5 [facility] Comment on above: Performed By: #### 4 [id number] #### [facility] [address] [place] [address] Dr. Valeria Farris LYMPH # 2.1 103/ul Normal 1.2-3.8 [facility] Comment on above: Performed By: #### 4 [id number] #### [facility] [address] [place] [address] Dr. Valeria Farris Lymphocytes/100 WBC (Bld) 21.5 % Normal 20.5-60.0 [facility] Comment on above: Performed By: #### 4 [id number] #### [facility] [address] [place] [address] Dr. Valeria Farris MANUAL DIFF REQ NO Normal [facility] Comment on above: Performed By: #### 4 [id number] #### [facility] [address] [address] [address] Valeria Farris MCH (RBC) [Entitic mass] 27.9 pg Normal 26.7-34.0 [facility] Comment on above: Performed By: #### 4 [id number] #### [facility] [address] [place] [address] Dr. Valeria Farris MCHC (RBC) [Mass/Vol] 33.2 g/dL Normal 29.9-35.2 [facility] Comment on above: Performed By: #### 4 [id number] #### [facility] [address] [place] [address] Dr. Valeria Farris MCV (RBC) [Entitic vol] 84.0 fL Normal 81.0-99.0 [facility] Comment on above: Performed By: #### 4 [id number] #### [facility] [address] [place] [address] Dr. Valeria Farris MONO # 0.6 103/ul Normal 0.3-0.8 [facility] Comment on above: Performed By: #### 4 [id number] #### [facility] [address] [place] [address] Dr. Valeria Farris Monocytes/100 WBC (Bld) 5.6 % Normal 1.7-12.0 [facility] Comment on above: Performed By: #### 4 [id number] #### [facility] [address] [place] [address] Dr. Valeria Farris NEUT # 6.7 103/ul Critically high 1.4-6.5 [facility] Comment on above: Performed By: #### 4 [id number] #### [facility] [address] [place] [address] Dr. Valeria Farris Neutrophils/100 WBC (Bld) 68.6 % Normal 43.0-75.0 [facility] Comment on above: Performed By: #### 4 [id number] #### [facility] [address] [place] [address] Dr. Valeria Farris Platelet mean volume (Bld) [Entitic vol] 9.9 fL Normal 9.5-13.5 [facility] Comment on above: Performed By: #### 4 [id number] #### [facility] [address] [place] [address] Dr. Valeria Farris PLT 244 103/ul Normal 150-450 [facility] Comment on above: Performed By: #### 4 [id number] #### [facility] [address] [address] [address] Valeria Farris RBC 4.63 106/ul Normal 4.20-5.40 [facility] Comment on above: Performed By: #### 4 [id number] #### [facility] [address] [address] [address] Valeria Farris WBC 9.7 103/ul Normal 4.0-11.0 [facility] Comment on above: Performed By: #### 4 [id number] #### [facility] [address] [place] [address] Dr. Valeria Farris CULTURE URINEon 01-09-2022 CULTURE URINE Culture Observations : MODERATE GROWTH OF MIXED GENITAL RIO. NO POTENTIAL PATHOGENS SEEN. Normal [facility] Comment on above: Performed By: #### U RCX #### [facility] [address] [place] [address] Dr. Valeria Farris GLYCOHEMOGLOBIN A1Con 2021 ADA RECOMMENDATION SEE BELOW Normal [facility] Comment on above: Result Comment: ADA RECOMMENDED LIMIT 4.0 - 6.0 ADA THERAPEUTIC TARGET < 7.0 ACTION SUGGESTED > 7.0 Performed By: #### P REGQNT #### [facility] [address] [place] [address] Dr. Valeria Farris Glucose [Mass/Vol] 111 mg/dL Normal [facility] Comment on above: Performed By: #### P REGQNT #### [facility] [address] [place] [address] Dr. Valeria Farris HbA1c (Bld) [Mass fraction] 5.5 % Normal 4.5-6.2 [facility] Comment on above: Performed By: #### P REGQNT #### [facility] [address] [place] [address] Dr. Valeria Farris SHANNON BOX TEST PT SEND OUTo n 01-09-2022 SENT TO REF LAB 01/09/2022 Normal [facility] Comment on above: Performed By: #### N BOX #### [facility] [address] [address] [address] Valeria Farris TYPE AND SCREENon 01-09-2022 TYPE AND SCREEN Negative Normal [facility] Comment on above: Performed By: #### 4 [id number] #### [facility] [address] [address] [address] Valeria Farris US PREG TVon 12-30-2021 US PREG TV EXAMINATION: US PREG TV HISTORY: Missed period COMPARISON: Ultrasound transvaginal 12/14/2021 FINDINGS: GESTATIONAL SAC: Present and normal appearing. POLE: Present and normal appearing. YOLK SAC: Present. CARDIAC: Present. UTERUS: Normal size and appearance. OVARIES: Right: Corpus lutein cyst. Left: Normal. CERVIX: 3.6 cm in length and closed. CUL-DE-SAC: Normal. OTHER: None. AGE BY LMP: 8 weeks, 6 days SUNSHINE BY LMP: 08/05/2022 AGE BY US CRL: 7 weeks, 5 days SUNSHINE BY US CRL: 08/13/2022 IMPRESSION: 1. Single live intrauterine . Electronically authenticated by: GERARD GONZALEZ Date: 2021-12-30 17:14 Normal [facility] US PREG TVon 12-15-2021 US PREG TV EXAMINATION: US PREG TV HISTORY: Missed period COMPARISON: No relevant comparison available. FINDINGS: GESTATIONAL SAC: Present and normal appearing. POLE: Absent. YOLK SAC: Present and normal appearing CARDIAC: Absent UTERUS: Normal size and appearance. OVARIES: Right: Corpus lutein cyst. Left: Normal. CERVIX: 3.3 cm in length and closed. CUL-DE-SAC: Normal. OTHER: None. AGE BY LMP: 6 weeks 3 days SUNSHINE BY LMP: 08/06/2022 AGE BY US YOLK SAC SIZE: 5 weeks 3 days SUNSHINE BY US YOLK SAC SIZE: 08/13/2022 IMPRESSION: 1. Suspect early intrauterine . Follow-up recommended. Electronically authenticated by: GERARD GONZALEZ Date: 2021-12-14 22:02 Normal [facility] HCG-BETA SUBUNIT QUANTon hCG,Beta Subunit,Qnt,Serum 571 mIU/mL Normal [facility] Comment on above: Result Comment: Fema le (Non-) 0 - 5 (Postmenopausal) 0 - 8 . Female () Weeks of Gestation 3 6 - 71 4 10 - 750 5 217 - 7138 6 158 - 19377 7 3697 -320785 8 85326 -061204 9 23503 -645610 10 28079 -800360 12 19228 -977442 14 09848 - 12933 15 00158 - 87703 16 9040 - 37494 17 8175 - 17403 18 8099 - 53181 Jamel ECLIA methodology Performed By: #### P REGQNT #### [facility] [address] [place] [address] Dr. Valeria Farris HCG-BETA SUBUNIT QUANTon hCG,Beta Subunit,Qnt,Serum 65 mIU/mL Normal [facility] Comment on above: Result Comment: Fema le (Non-) 0 - 5 (Postmenopausal) 0 - 8 . Female () Weeks of Gestation 3 6 - 71 4 10 - 750 5 217 - 7138 6 158 - 24210 7 2207 -865802 8 93256 -068664 9 64874 -602611 10 45253 -433134 12 13201 -922295 14 71023 - 75027 15 09812 - 74952 16 9040 - 28081 17 8175 - 42917 18 8099 - 19655 Jamel ECLIA methodology Performed By: #### U ACSALEX LYLESRO #### [facility] [address] [place] [address] Dr. Valeria Farris HCG-BETA SUBUNIT QUANTon hCG,Beta Subunit,Qnt,Serum 18 mIU/mL Normal [facility] Comment on above: Result Comment: Fema le (Non-) 0 - 5 (Postmenopausal) 0 - 8 . Female () Weeks of Gestation 3 6 - 71 4 10 - 750 5 217 - 7138 6 158 - 97773 7 3697 -908151 8 55269 -864032 9 13881 -164553 10 14569 -554739 12 59692 -045767 14 84644 - 31278 15 65696 - 58990 16 3139 - 04147 17 9602 - 47496 18 8021 - 78688 Jamel ECLIA methodology Performed By: #### G LU1HR #### [facility] [address] [place] [address] Dr. Valeria Farris PREG QUANT HCGon 10-05-2021 HCG QUANT <1 Normal [facility] Comment on above: Performed By: #### P REGQNT #### [facility] [address] [place] [address] Dr. Valeria Farris HCG RANGE SEE BELOW Normal [facility] Comment on above: Result Comment: 5-50 0-1 WEEK 40-300 1-2 WEEKS 100-1,000 2-3 WEEKS 500-6,000 3-4 WEEKS 5,000-200,000 1-2 MONTHS 10,000-100,000 2-3 MONTHS 3,000-50,000 2ND TRIMESTER 1,000-50,000 3RD TRIMESTER Performed By: #### P REGQNT #### [facility] [address] [place] [address] Dr. Valeria Farris FREE T4on 09-12-2021 Free T4 [Mass/Vol] 0.88 ng/dL Normal 0.76-1.46 [facility] Comment on above: Performed By: #### P REGQNT #### [facility] [address] [place] [address] Dr. Valeria Farris TSHon 09-12-2021 TSH 1.564 uIU/mL Normal 0.358-3.740 [facility] Comment on above: Performed By: #### 4 [id number] #### [facility] [address] [place] [address] Dr. Valeria Farris TSH RANGE SEE BELOW Normal [facility] Comment on above: Result Comment: <0.3 4 UIU/ml HYPERTHYROID 0.34-5.60 UIU/ml EUTHYROID >5.60 UIU/ml HYPOTHYROID Performed By: #### 4 [id number] #### [facility] [address] [place] [address] Dr. Valeria Farris US VENOUS DOPPLER L Nohelia US VENOUS DOPPLER L ARM EXAMINATION: US VENOUS DOPPLER L ARM HISTORY: Disorder of soft tissue ; left arm swelling COMPARISON: No relevant comparison available. FINDINGS: REGION: Left upper extremity THROMBI: None. COMPRESSIBILITY: Normal compressibility. FLOW: Normal waveform and antegrade flow between 5 and 20 cm/s. OTHER: None. IMPRESSION: 1. No deep vein thrombus within the left upper extremity. Electronically authenticated by: GERARD GONZALEZ Date: 2021-09-12 14:31 Normal [facility] Coding Summaryon 10-16-2020 Coding Summary HTMLBase 64 VhcjlarnVHk8gUs+PGhlYWQ+ KJ7RVXDeO62szKJvtZ4FE5rI ZB0AWAUNJHEIHV7IBF8dfXB3 MGatK2IaneBn OxmgyBRjWY17YUa1AMS9jEkn WRfbdV5khVBsC2y8NvAnJJ90 gS87XCjzSRPkAkT5WiEcipew bWFy L3irAuWfcQCePkp+PHRhYmxl IHdpZHRoPScxMDAlJyBzdHls AX2cYu7uXIHcYQJjmNjvsNAl OiBj q4epIMZoDTbcOY7rfIurC4Wf fWS5APDal0e7Xo96pSL+PHRk GHZ9zClaZSaka398JoYyl0rn IDM3 kJEwHWujJOJ7V69si7F5WKDs MZHqOTK1zYS5xX1nzXdrnwyu K0PimBAdMfL6YNL6hSCakN5v bGln sqgxtK5jPcm+Q59HHW1OTORS ZS0YKff0R4MtBaozfRI+PC90 FILcPJ77eTUieRHag6ugcOd2 JzEw CUCeFKM2gFriFDknf4HwNUKf Y63vgRFmn4X9RZSopDskcMRa RqTeeAA1kO6cUNvouewxo7gx dzsn Tvjvh1sjfg37iH43A63aIFaq FQIfIUV1NGRoJBWcfZmqza2n sQ9bJq0+NRmeu1peq8rqqIl3 IjIw JJIlskQwzNswCZH4s9LiBx85 D2VueTbkp9ZcWaf3lx95dHMl n3V8vOS5DIziGXElfL7vDXrp ZnQ6 DIJrNzItkU13pYCqVYusRh9e qMtuyOopMQ6yTLEohrslQHSn rX3oVXTlrWGwvEwyCK0tHAZi bjtm v388WvIcEKE0SNYhaJQoT5Ur mT6lRyBwNVBsODIqM2WmoQCa CDqlN772QWfaAqK8HHPhzqMg Y2Fs UHGjvMkoUmB8y6Y6Uu3Hl7Go mskiKPD9ISjfTFQ2MeY7AuIf RnE5D0BdSss6JXBqfCwgCQ5a J3Bh TUEmrutjuuozyVJ3HBVnIVIv gE73yFYiTXynXo6ay1G8x158 QFVgPOTuqN34Ik1grLpzIDMx dCBU lZ8xydghi5senxggJiZlGFUe TUu0IKz6VYYhsPxtNvXoCZZ1 AiJ4OXD2vMBwdL9snNnokjho dG9w Oyc+M56nhY2vRUW7WHX1sbwx LPTdakCdWG85QJ97I1OhDfpa dGFibGU+WZOzhsUywBbdQN7j YmFj m5plw2NsEGoqA3QjLTLsSDzk Swf1PZYfHIZ2lHB2yK8dKVBl QRyyc1U8pLH5K3LvlvBmzl5n b2xs MZAoWCqzQ76lfXAaj6M3EDPi nZV2HHVywBqfQcWquE26Zil+ PUQlpPijh1TlLhiis7onf5mg dGg9 DdKxSFBcyxIcnOhhJZU0s8De Ne81X41gQIrqSCWoOFYcTSXj QXTduInfmy3ljE8bFf5+PGNv bCB3 dYO1oU3vUSDeIiA2GIsqJ401 WvCugLIbOvsoj6awk3noxBx6 FhGiAMErvnWahVacOXX8b3Jz Lz48 O58kTGdgWXBlYPWtBAZeCAUc yKhyxv1txV4sGb3+BP8lu8ci sf43zO76bWH+OOCdZDE3hHdc PSdw DWSdyG8ySLylTcS9VBFaDtAc eO80vTMeTNueCp3ngQatmRjt WZ3oELWejvwuc680UkUtg5aa IDEw qOLbGZqiXPI6D45ws7L6DDGi LBZaAYH2yFE0bX1chVgmtzwa bGVmdDsgdmVydGljYWwtYWxp Z246 IHRvcDsnPlBhdGllbnQgTmFt AWy0C6LnTyy9GZLnwKdkIH1e eVQoNTexOb5auWwqjKpuYL4v NTBp oeevf452PbJzg7wnZPYkmKGx RGrjKNW0O90ev0U6RUTjPRUj UBK3sWB7dF1wzNwcnxywnXZi dDsg wqDuzJlvTGhkVUhlK511DQAb yRgoHoFqwqQrDRJnePL6UX94 OV72lTRea0T8tRI1G9YhKVTr bmct tvhezAA2JUYpTVVshX73Py6c rSygVw5nJGCyZDC4TVPatBWh U2WgaT2jQtVwSXYyLYLzG7Bz eHQt ROlnG832PZtsPdF8KELibyGl S2HnRTQhcRxxTgC7w0E1Sg6L K1L1JP69DB21hKQbp1U5dDD5 J3Bh NAWmfmrnfomwmON1RIWgZMBp eV12Lq0giIqfOk1xPGGrYMA2 MJBwvYVzL4HimS4jXrDiMOKz MDAw W1AvyGDkDSgjM580YNlhNsX8 PTTyjiMyO3LsVGTpzLqoKkH5 k9A1Vn6KUJe9QL71XC72bACn c3R5 aAL7P2IeIKYildpsspqszIH2 HDGhPKYxkP21Um1jcSqgXd2u ISPgENF0CYOnrNMkH7ZgiC0s OiAj PPVaWIPdJ9VmxOJiDJykK681 CHciPsY4EMBitrIqY4ImBBCu rNgyRvI5d3H3Au7PZRTwKQ85 IFR5 dRN6MD17OW83B2VbNsibzSIx bGU+PHRhYmxlIHdpZHRoPScx ZSAsFpBpsRaoVL4pBq2nDRVr LWNv xMjtcFIuQfWla5zxTDAtFTao PX2upBpgW6ShbAT3DTXvl5m0 Ew40I23kA7KscLW+PGNvbCB3 aWR0 oX1bKnBcEcX9WCjwV437IjRf oYZeBjplt6dmh5mswHj6XqW4 JJThkeJltYpnRMB8o5BfOe70 Y29s IHdpZHRoPSIxNSUiIHZhbGln va3frP3dSa5+BROzgSC7xSL5 kQ2pQxDySjE8APcdS910YxSq cCIv Cucdh9knl6azmYn4QmHpFWMq zoTvyNkkNTR7f5HuJq34B6Qc tDwqx0SfTci9ku92aKIpy6N1 bGU9 D1QyQSOcoxtaoCXnnWwmKU8b GHDqgixgXVGrnZ2hSXNxH1a5 VsUjFiB0ZBxdC1ZnsqN8DZWk cHQg JXxwXAP0F37cn0M6DISkJMTk LHL0zSD6wV2irGbzttcetYZl hNjpsqVhvAfmOXyfIXfcO882 IHRv rCpnDBUsuL5dGTWzkHChhTpp VX5iWUTiqhmuXuXQXfTZAgBU LCBNRUdBTiBNQVJJRTwvdGQ+ PHRk RTC9tPknVBrtJZDpeF1uUEEx Y5h9NqNrJuN4DFmiO0CvSOZf jlyiRs55nV7hQfAtByP3KKyh O2Zv wuS3LSMonSMnEDpjPJV1U31w d1X1XJQyNYLbMXU9wHK6sP1k bGlnbjogbGVmdDsgdmVydGlj YWwt HHbaO613ENBuqLzbPoUpIgR9 MrD1KGN9Y4HsVbz1UFLxyJwt TL6ggNDpINupQd3stZetuKzq MC4w HXQenyfhRCKijO1fJEQubQUl kIjuCU1yDZNiiycss013SwUy BAO3ODYquAUbR8KxcH2rGmAz MDAw HCFaH4FrjHSlBNruR472AWey GtD4JFUvufAoW0LqHFGebMin FqY5i8T8Jr6tSFPYMSVqcani dGQ+ JMHxVTB3tPumKGxmIISulC1d KMQeB7w1RrJtUyG6XUjzQ4Xw IQXogedbXz05uU3pOiCsTsP3 MGlu R2RrbpM0KSGgxEVwRPujQWZ0 U05zp6A0MLPjLYEnFRX6oHG7 mC5npQovsaqozMWyjIbkbaXt dGlj XYhyZTsyR462DJBsoUltReZU TUFMRTwvdGQ+JNZsFIX2kNdk SLedFGYfkD5tXNYaJ5b5TtWq LjA1 ZBrxC3OaZHVtebafGr83pM5l MdTlUeZ1UUbfR3NnoeD1CQWu rBAfZHidOLQ0Z30ma3J6RFYh MDAw PFE0iYL5oR6mkZbfbferiPTv sPonlgEzlOymRVkbOMnaX124 PFRunEeeNl9PBJ65HQ46K9Kf Pjwv dGFibGU+PHRhYmxlIHdpZHRo YYrfYLItIjQdiIwwBV2cTx5h FINlVLTfqBfwcBAcIbAgd3uy YXBz ZZnfBR4knCofI2OcaTP7RZAh l5y5Gn62U62kS0EqrXK+PGNv cPA5fMS2fW8gTvAmHwB6DMgd Z249 QwCsnXAaGykrl5tdn0jsiDt0 QkOoXTIwohEogAwzFXK7j9Yr Sh03J94vEAciLJZjBEYqJFCw IHZh zVkwxo2nhK3pGo4+PGNvbCB3 iEV7iZ6dEwFvFnK1NAatD385 ObCcfTVaPojhR36sP7StiQN+ PHRy Dro0CYBccGziGX9ptNBgCUoi Hg5hHSY4DmAcCyEhXXfuM1Ca URFkiyuacpsprIT6LMUoIVZp aW47 Nu9jhAthAh3uONFyNSW3SWLu tNEbM4BlfF2iYkCfQSHvIINy S3DtlQYaJDcjI022BTzvEpK8 IHZl sqNwW0JqFURffGqbPeY4v5S8 Be2MgWiclOHoUL3aAwFrQJq9 V3CvBxa5OXXzqAkqJU7lyCDg ZGlu Iz7dwAtpfNqjBZ1zUXAandne r677HyIpv8xgLPAxwCDnSXek BMI9C34nb4T0NFBlQTLqMSF2 dGV4 gZ0maJxswqwyqUGdtAogbcLw yNgfQWcrLImoR431ARPokHou CmNOLfv7C3IbQpv2AWWkmFib ZT0n bJOnOGvhHi3goOwbrCjoPS1l JTVjmjgdh958XuLra9uvSSEo gGIoCCxrBAS0E16sv0O0PGGj MDAw LFW7hIF9yL3snNtoebsbaIKe yVoflbSdgAhrFUotFZtmE193 LORenJduYb9LGkl8P5LrIke6 ZCBz fItsAX5mkANvADetUc0wsOck jDtfRE2wOCQbbllca375FwFu t4pfBLFeuBAcUHwtQHV2J80r b3I6 VXDnDSVxFHT3pHZ9oK9peLfz bjogbGVmdDsgdmVydGljYWwt HWozN852SMNepBvmYwLpmXEx Ojwv dGQ+HD12rr83U5WmFunzTti8 WFFcUHS3dVZ4xU2dHXUbMFcr n2U0rHP1Y4AkixOcem8rq1rc YXBz ZTo (more content not included)... [facility] Coding Summary HTMLBase 64 MzyjvcfmXEm7bIe+PGhlYWQ+ YT2WKNTbH18vgLGviO6DO9mP DH9BXEJAWZJVIL3NBJ7scLX2 LOzzL7EcyhSs LmdpiJUbKH52EHi2OUE3hPew ABuinE6reBFzS2e8IpClLI01 iU87LWjuGCOjWnD6DkObxmll bWFy X8ioTuLhgSQcKno+PHRhYmxl IHdpZHRoPScxMDAlJyBzdHls SI6aTy7hXZSfBDWtyVqkeDHh OiBj l1zmCYBjWXwsRC8hzEneR9Jy pYJ8LJRru7u3Kw96hTC+PHRk RIM3sEafRTkoi433RoGmr9as IDM3 cMXjFAflDLM2D92yt4W6BZYj GCQaEFN6aZK1rB9clTikuefr T5XedOTfKkP8QXA0uWIpnL9m bGln nipyqX7hJzq+Q46NMU2JKNGH DN2HRsu2J8TmWdpqnIK+PC90 ELBrMV04gROqtOZka9pdrVt6 JzEw JAZuKTS2xXxfFIoxc3VtCUFn Y59aoMEog7Z0UVTzoAyelFXm ZkDdlYO3xN1yNQigsswsy3na dzsn Pghdf9ydtw97tB05U64bOZdn ZEDpSIO9BJIiZCKywQbccp1q hS6jVa8+RBcde2wpu3blmCj7 IjIw FALvbnVjeLxzEOP3v5ThEy66 S5ZwvPjcb6DkPnz8zj80wYIp v1T5iRV6NVgfKKYcyL6uYJsd ZnQ6 DHUnXsEdyL35rLHcSXdsWv6n gLtsnKymQR2yDZQwllhbKKGf cF2zXIKxxFKazXkwHO5uRNIm bjtm w726PaKiQFU8TLIoaJPjB9Dc wZ7pCdPqLLGpTUBvE6NtoXOc BEtuB964GZtxHiQ9XSStxqBx Y2Fs ZPRldVkrNiK0p7A6Bg1Tr8Tz gwpzZEV5HYtsTMX5HeF7EdIf AjW7N2UwGfj8YCRkxUzoNM7v J3Bh AQPadmoeplhilWS7SKUhILXt rL17cLGzYDygZr6mr1P3o206 VUFzMBYlvL98Vc4rjDreVFKa dCBU mI3sgrfgy5cjuqhnSoQyFDUx WEv7AEh1TJCqmAwmXaMoLLI8 XlA7QBO4iYPefQ5ldRujtpla dG9w Oyc+S38dgG3hAUS6UPX4hwpn JJRlnhKqWO94WD31W7FoMedp dGFibGU+ZFOqxeBftIexMA7z YmFj g9pkj9JtWJiwN0HwLYYtXPvw Orh1WRQfBTM3eRM4pI3pBTMv RQehh7S0pIS2C5ZtlaAzvj8g b2xs JNZxJFkwE06mjIYsv1K2JHHy rHV3LTNadExuJsIfkX86Giy+ ELDjkZjjw0YcOmjrr5kan9zr dGg9 YmZkOOTaxoVqjJabNCH9y0Oz Te83I38jTTarAQMfDFNxKAHm HXSfdRnqab2zjA2cQm1+PGNv bCB3 dYC5wO4rHOQsFaK5OKsnD995 GpXpyBGhArxns7eij6lajZx6 UkYbLKApywAmfOalSBF5v1Ae Lz48 P11mHLopFZDrGNOaDTGxPOIw fBzcls5dbB5jLo4+QC0ug2kc nt50bK67rXS+HHLdSES5pNye PSdw UBCukY3aRBfwLbC2OKOyHwFr pP77iMPwALgwQm6qaQrjnZzj GN5gZCGdzjlwn012WlZgm5jc IDEw tBFjRIwvHMG8L87ty1T6YXNj WXWlCPB5qGN3lJ1pyFnvmcha bGVmdDsgdmVydGljYWwtYWxp Z246 IHRvcDsnPlBhdGllbnQgTmFt KMq2I5EnAkf5QHWrnJfmMQ4o zPBiCEewIc4kjOcwvZzgWG4h NTBp tuafk721OcRtc5bbEAMyjBEp GGwiYHK7Q27xj5T0SFQuEOOh ASA9kNS3uP8exTlpsomspLMu dDsg uaDuxMmoSVmrEVglK215CMJm gZwkWtVubpHhAIEmpOW7CD66 PX26fEVpu0R9dIL6Q3LeFGTe bmct irckeYJ6OIZeTUOgcA72Zc9b xAqgLl4sQACsDUH8IDNjuYIt C5BaqJ9gZfKxSBRyUQJcP9Dr eHQt EZylK445NVinFeO6BTDbjrNx J3BdHNLbtItlOeX7n4N6Qa1U C9S6OG07QV65mHDqs9D1aYG2 J3Bh KJOppzgslkmvbVQ0WTGkXUDk cS01Iu8pzLvjDm0oFNPtUSK1 RJQifKSbT1LigM1iEeTvDFPy MDAw J2OktLYjFPwqM668CMleXnZ6 WBOqcwUyX6XfKNBzoYabCbK1 p9L5Lz8ICTw2VR18PI89mYIn c3R5 cMT6Q8HrECRaibkjqvgbaRS7 HIQkDPOckK11Ak1zfUobOr2q KIAiBIE3XIGteWVmA1HkoE8w OiAj DXAdPGHaD7UusPMzHRscN785 LGooEvM4WTDuuvWvQ8DtLBGr sZaxPsD5n3R5Wr4GTSEsVN42 IFR5 tIA0XI25OY35Q9EdAwdlvESc bGU+PHRhYmxlIHdpZHRoPScx LYXgJvBcxVmcYL5xDx3fJSEg LWNv eZriuOAfKkAaw0dtQYWsFKdr YU3blBrzJ6JzxTL3TKZui7a0 Rr17H91zS9XamHY+PGNvbCB3 aWR0 xW9mSxDbRqT5USwwL821YnFa dSRbOuhxa1ijj3hfnTb4XaD9 SHUbgtFrwIzeIAK5o3WeMc21 Y29s IHdpZHRoPSIxNSUiIHZhbGln xr2urT2rKk7+PPSfyMS8uBO7 rR1oCzLxGjN6ALgqQ737LjOv cCIv Wxcvv7gpe8mgyFw1JfVgFDHy vvBqrAlvOQB6u3HqEy10A5Kv qFeqt4YhFcv3eo27sFFbl0Q8 bGU9 U8YaVWSpzpepoQRdsWkuTO7p BXAzljnkCKBinI1uPNFkC9p1 PqQkLqH9OOmmZ0MvdvA6YZAl cHQg HWdzMQN8S77hc1R4EREkYUJt XHS3sDP4dK6tvLekwznjpXSp jNoxepUbdIloIWlrOWgvP281 IHRv tKotHTXpfQ5sVFHxyKLegYud ZG6uUCTeankjHfKOVhGEZcIR LCBNRUdBTiBNQVJJRTwvdGQ+ PHRk TUK0aBaeOJknCPNnbA2jNOXt E3x9NfGdLuF1SZqpF3KsNQUc nbtjHc48pV0tVfJbUoR1QXms O2Zv gkT4QHPobCEhKZriTKS4M51a w7P6MRByRFMbIVD6mMW8yT4l bGlnbjogbGVmdDsgdmVydGlj YWwt TCptX118AKDiqIwzBaNzWpG6 GyN0SEX3J8OlVrg4XYLzbNpf DA1hbSSiXZtbCh1dyMqlkGve MC4w UTPywbkcMCUgaF3fREAqlCUv tVnxLM8yKTKcppphk880YdYx XKR2VLZzaYVuF8RsrY1oQkAo MDAw TCUdG8HouGScNJcwL138AUxu BnJ9ENVagjUfC3WqDRRexBfs ZaB9s2H4If2gPTCTRDRnxghz dGQ+ ZDFoWPJ2gYzsOQjyKHFunR6a OHNrR3z1CyEpNnV6YUfjY9Jv MTJtzhpgPp70lB5qQiJqKjU1 MGlu N2IguvG3UPIgbTDmYKkoGMZ0 Z26bh4C2AVYlCZLbPUA7xPD4 kY1cfArlqkdtxXUzdOdsehSg dGlj KLspFSyrO187ZPCooWteWmXP TUFMRTwvdGQ+YAWhZZH6wUtd VQkfTZLtiJ2mVDKlF9w3HbPv LjA1 NSurQ9MvRXUolslrTe15lR0c SxPuWxI5GJspO3AnetF1DDFg gNXaLKuyVRM2E72bw6D7VNNj MDAw NWV8rDO7gX0zlYdavneeyQQo vHyqtxSmxUulIQdiXNmgA982 HHIihApnWnWqEFKsOU7njEkp dGQ+ IL12kb28F8ShHcoiIiv6UTFn KRL2fET4qA3zYCEySSini6E4 iGC9U1VcyjZkjx7yu2moTNRs ZTog F38wsLImi8A7FADtpQF2QMRk vWbrUgFsjT47Wfj+PGNvbGdy a9XnWyhws7aeh5whhNn4XmVq JSIg vyDcyLhhDJX8a8TbFy74I09d IHdpZHRoPSIzMCUiIHZhbGln sm9nnG1zMq2+AOFlxYV4iSY3 aD0i JtNzRhB1GEniI714HdIzaNAz Vubtc9jei9euzAn0BmYsOEXh goKwhEpgIWI3n3IzUk82N6Ut bGdy t4VrGgk7rs94dBSmq1B2qBP6 A4DcUSIxxmcnfGYcsXlkKM0k MNHizrflVCPhhN0zALDhF6j1 OiAw RiM1BTczX3IkwjB7ZGWqvCIk CKDreGNFxJ3uasjpp8mtiimf MlFsECOvUGw2MRj7LPIpnYzz OiBs ELG1RfW0WYG7dMBbiC4fuPkm fjcbaT9tQst+VDq9p1ighGSb FC4spFC0VL05XD90rJUdo6J9 bGU9 Z4GaHMEnyqptmonboMG7DHCq ARWdtF88Wc5rrEvsYw0mVPTe ISX0HEQnaGTtR9IrpK4xXqPz MDAw VLMyW1TswORnBFdhO312GMat LjG3AGHxjsGqA3NhNRWkfXpb WxG0y3Q9Fp8FXS59ZC90VZ71 dGQg c2A4lAZ1R8PfRKNspvpolgnc dEH6SFAeBWTgmC37Np4rcIbg Ly2fDSUyBCB5GPQyeGYzM0Vl bG9y PlWuHJHaXVNkZ6XhaXYnOIlh C647HDmsXxY4VXSxujYoZ6Fx WZKqxGidOtG3r2U7Qe4JVf50 PC90 QB88zCLkp9F1rOV5G0GrLGAv kbhadovcoHQ5EHUlWCJfwP86 Yl7dyDllFe0bPSIxZAL2NLTt bWVz D8UjgO3wYhUmTDAuTPTsU1Iq rXFoONlzO113ZNntWgE9YGBg poQoH3RuZSIbfZwrTcM6w0M0 Jz5Q HIvmxpz6N7UySucmaLZ+PC90 FJLoOP54rTTbaYIpk9dhtBv4 AiVfULUiNXI9cDhkLEnnt6Uv ZXIt Y29 (more content not included)... Normal [facility] .Auto Diff 10-11-2020 Auto [place] % 6 % Normal 1-12 [facility] Comment on above: Performed By: #### 7 [id number], [id number], [id number], [id number] ####[facility] (DEFAULT)[address] [place] [address] 53520 Baso Abs# 0.0 x10 Normal 0.0-0.2 [facility] Comment on above: Performed By: #### 7 108857, [id number], [id number], [id number] ####[facility] (DEFAULT)[address] [place] [address] 73812 Basophils/100 WBC (Bld) 0.3 % Normal 0.2-2.0 [facility] Comment on above: Performed By: #### 7 505725, [id number], [id number], [id number] ####[facility] (DEFAULT)[address] [place] [address] 51121 Eos Abs# 0.2 x10 Normal 0.0-0.4 [facility] Comment on above: Performed By: #### 7 793743, [id number], [id number], [id number] ####[facility] (DEFAULT)[address] [place] [address] 29911 Eosinophils/100 WBC (Bld) 3.4 % Normal 0.9-4.0 [facility] Comment on above: Performed By: #### 7 717038, [id number], [id number], [id number] ####[facility] (DEFAULT)[address] [place] [address] 16823 Lymph Abs# 2.5 x10 Normal 1.3-2.9 [facility] Comment on above: Performed By: #### 7 931598, [id number], [id number], [id number] ####[facility] (DEFAULT)[address] [place] [address] 84144 Lymphocytes/100 WBC (Bld) 41 % Normal 14-48 [facility] Comment on above: Performed By: #### 7 605033, [id number], [id number], [id number] ####[facility] (DEFAULT)[address] [place] [address] 38984 [place] Abs# 0.4 x10 Normal 0.0-0.8 [facility] Comment on above: Performed By: #### 7 385699, [id number], [id number], [id number] ####[facility] (DEFAULT)[address] [place] [address] 19474 Neut Abs# 3.0 x10 Normal 1.5-9.2 [facility] Comment on above: Performed By: #### 7 701709, [id number], 98583913, [id number] ####[facility] (DEFAULT)[address] [place] [address] 89565 Neutrophils/100 WBC (Bld) 50 % Normal 44-88 [facility] Comment on above: Performed By: #### 7 437882, [id number], 53054037, [id number] ####[facility] (DEFAULT)[address] [place] [address] 74524 CBC w/ Auto Diffon 1 Erythrocyte distribution width (RBC) [Ratio] 13.2 % Normal 11.5-15.0 [facility] Comment on above: Performed By: #### 7 637380, [id number], [id number], [id number] #### [facility] (DEFAULT) [address] [place] [address] 61040 Hematocrit (Bld) [Volume fraction] 36.8 % Normal 33.7-40.4 [facility] Comment on above: Performed By: #### 7 355049, [id number], [id number], [id number] #### [facility] (DEFAULT) [address] [place] [address] 69517 Hemoglobin (Bld) [Mass/Vol] 12.4 g/dL Normal 11.3-15.9 [facility] Comment on above: Performed By: #### 7 662610, [id number], 97714885, [id number] #### [facility] (DEFAULT) [address] [place] [address] 66435 Instr WBC 6.1 x10 Invalid Interpretation Code [facility] Comment on above: Performed By: #### 7 100592, [id number], 96638101, [id number] #### [facility] (DEFAULT) [address] [place] [address] 11501 Man Diff? Auto Normal [facility] Comment on above: Performed By: #### 7 449117, [id number], [id number], [id number] #### [facility] (DEFAULT) [address] [place] [address] 46766 MCH (RBC) [Entitic mass] 29 pg Normal 24-34 [facility] Comment on above: Performed By: #### 7 970358, [id number], 07350240, [id number] #### [facility] (DEFAULT) [address] [place] [address] 91323 MCHC (RBC) [Mass/Vol] 34 g/dL Normal 26-37 [facility] Comment on above: Performed By: #### 7 516287, [id number], 39983612, [id number] #### [facility] (DEFAULT) [address] [place] [address] 89235 MCV (RBC) [Entitic vol] 87 fL Normal 81-100 [facility] Comment on above: Performed By: #### 7 159621, [id number], 17900334, [id number] #### [facility] (DEFAULT) [address] [place] [address] 32928 Platelet 204 x10 Normal 138-427 [facility] Comment on above: Performed By: #### 7 289626, [id number], 60666358, [id number] #### [facility] (DEFAULT) [address] [place] [address] Platelet mean volume (Bld) [Entitic vol] 9.6 fL Normal 6.3-10.2 [facility] Comment on above: Performed By: #### 7 724582, [id number], 98461752, [id number] #### [facility] (DEFAULT) [address] [place] [address] 55800 RBC 4.25 x10 Normal 3.70-5.30 [facility] Comment on above: Performed By: #### 7 213362, [id number], 24836220, [id number] #### [facility] (DEFAULT) [address] [place] [address] 89699 WBC 6.1 x10 Normal 3.5-10.5 [facility] Comment on above: Performed By: #### 7 926280, [id number], 72255186, [id number] #### [facility] (DEFAULT) [address] [place] [address] 71464 CMP Standardon 10-11-2020 Albumin [Mass/Vol] 3.9 g/dL Normal 3.5-5.0 [facility] Comment on above: Performed By: #### 7 840897, [id number], 44955022, [id number] ####[facility] (DEFAULT)[address] [place] [address] Albumin/Globulin [Mass ratio] 1.3 {ratio} Low 1.4-2.6 [facility] Comment on above: Performed By: #### 7 927862, [id number], 85969291, [id number] ####[facility] (DEFAULT)[address] [place] [address] 00492 Alk Phos 67 IU/L Normal 32-91 [facility] Comment on above: Performed By: #### 7 015961, [id number], 94919297, [id number] ####[facility] (DEFAULT)[address] [place] [address] 27786 ALT [Catalytic activity/Vol] 28.0 U/L Normal 14.0-54.0 [facility] Comment on above: Performed By: #### 7 697952, [id number], 34381176, [id number] ####[facility] (DEFAULT)[address] [place] [address] 98895 Anion gap [Moles/Vol] 14.0 mmol/L Normal 5.0-19.0 [facility] Comment on above: Performed By: #### 7 196615, [id number], 64732497, [id number] ####[facility] (DEFAULT)[address] [place] [address] 68799 AST [Catalytic activity/Vol] 16 U/L Normal 15-41 [facility] Comment on above: Performed By: #### 7 434682, [id number], 32075836, [id number] ####[facility] (DEFAULT)[address] [place] [address] 61244 Bili Total 0.3 mg/dL Normal 0.3-1.2 [facility] Comment on above: Performed By: #### 7 375195, 2351126276, 22997276, [id number] ####[facility] (DEFAULT)[address] [place] [address] 66704 Calcium [Mass/Vol] 9.0 mg/dL Normal 8.9-10.3 [facility] Comment on above: Performed By: #### 7 104912, [id number], 91277537, [id number] ####[facility] (DEFAULT)[address] [place] [address] 81295 Chloride [Moles/Vol] 109 mmol/L Normal 101-111 [facility] Comment on above: Performed By: #### 7 184254, [id number], 62537745, [id number] ####[facility] (DEFAULT)[address] [place] [address] 39183 CO2 [Moles/Vol] 21 mmol/L Normal 21-32 [facility] Comment on above: Performed By: #### 7 534003, [id number], 51263265, [id number] ####[facility] (DEFAULT)[address] [place] [address] 78413 Creatinine [Mass/Vol] 0.90 mg/dL Normal 0.60-1.30 [facility] Comment on above: Performed By: #### 7 425162, [id number], 19681360, [id number] ####[facility] (DEFAULT)[address] [place] [address] 91243 Globulin (S) [Mass/Vol] 3.1 g/dL Normal 1.5-4.3 [facility] Comment on above: Performed By: #### 7 337360, [id number], [id number], [id number] ####[facility] (DEFAULT)[address] [place] [address] 49048 Glucose [Mass/Vol] 95.0 mg/dL Normal 74.0-118.0 [facility] Comment on above: Performed By: #### 7 537874, [id number], 67440251, [id number] ####[facility] (DEFAULT)[address] [place] [address] 49928 Osmolality 282 mOsm/L Invalid Interpretation Code [facility] Comment on above: Performed By: #### 7 650677, [id number], 93387288, [id number] ####[facility] (DEFAULT)[address] [place] [address] 87938 Potassium [Moles/Vol] 4.0 mmol/L Normal 3.6-5.1 [facility] Comment on above: Performed By: #### 7 220819, [id number], 64604662, [id number] ####[facility] (DEFAULT)[address] [place] [address] 53394 Protein [Mass/Vol] 7.0 g/dL Normal 6.5-8.1 [facility] Comment on above: Performed By: #### 7 210205, [id number], 24716418, [id number] ####[facility] (DEFAULT)[address] [place], [place] [address] Sodium [Moles/Vol] 140.0 mmol/L Normal 136.0-144.0 [facility] Comment on above: Performed By: #### 7 633919, [id number], 90642942, [id number] ####[facility] (DEFAULT)[address] [place] [address] 60532 Urea nitrogen [Mass/Vol] 20 mg/dL Normal 8-26 [facility] Comment on above: Performed By: #### 7 756959, [id number], 45155302, [id number] ####[facility] (DEFAULT)[address] [place] [address] 99736 Urea nitrogen/Creatinine [Mass ratio] 22.2 mg/mg High 4.6-16.2 [facility] Comment on above: Performed By: #### 7 407663, [id number], 40431995, [id number] ####[facility] (DEFAULT)[address] [place] [address] 64617 Discharge Instructionson Discharge Instructions [id number] TIFF Normal [facility] ED Clinical Summaryon 2020 ED Clinical Summary [facility] - Emergency Department [address] [place], [place] [id number] ED Clinical Summary PERSON INFORMATION Name: YANI WOODY Age: 30 Years Sex: FEMALE : 1990 MRN: Acct#: Visit Reason: Pelvic pain; PELVIC AREA PAIN Arrival: 10/11/2020 09:15:57 Discharge: 10/11/2020 12:33:00 LOS: 000 03:18 Check In: 10/11/2020 09:15:57 Checkout:10/11/2020 12:33:00 Address: [address] [place] [address] PCP: Provider, None PROVIDER INFORMATION Provider Role Assigned Unassigned DAVID GALVAN ED PA 10/11/2020 09:24:51 Linn Decker ELECTRICAL TRYOUT PERSON Nurse 10/11/2020 09:28:06 Kristi Case ELECTRICAL TRYOUT PERSON Nurse 10/11/2020 11:45:12 VITALS INFORMATION Vital Sign Triage Latest Temperature Tympanic Temperature Temporal Artery Pulse Rate 70 bpm 68 bpm O2 Sat 98 % 98 % Respiratory Rate 16 br/min 16 br/min Blood Pressure /100 mmHg /100 mmHg MEDICAL INFORMATION Medications Given: Allergy Information: morphine; amoxicillin PHYSICIAN DOCUMENTATION Patient: YANI WOODY Age: 30 years Sex: FEMALE : 1990 Associated Diagnoses: Ovarian cyst; Pelvic congestion syndrome Author: DAVID GALVAN Basic Information Time seen: Date & time 10/11/2020 09:26:00. History source: Patient. Arrival mode: Private vehicle, walking. History of Present Illness Patient is a 30-year-old female presenting to the emergency department with complaint of pelvic pain starting 3 days ago.. Patient states that she feels a sharp pain near her cervix and has had mild spotting a few days over the last week. She states that she thinks she is late on her menstrual cycle supposed to have this last Sunday does not had a full menstrual cycle just a few days of spotting. She does state that she has intense menstrual cramps when she does have her menstrual cycles but states this is mildly different. She does report that she took home test which were negative. She contacted her oyster floater who indicated he could not see her for another month so she came to the emergency department for further evaluation. Patient denies any fevers, vomiting, upper abdominal pains, pain with urination, issues with bowels, chest pains, shortness of breath. Patient states that she is monogamous with her fianc?, no concerns of sexually transmitted diseases. Patient reports normal sexual intercourse. Review of Systems Constitutional symptoms: No fever, Skin symptoms: No rash, Eye symptoms: Vision unchanged. ENMT symptoms: No sore throat, no nasal congestion. Respiratory symptoms: No shortness of breath, no cough. Cardiovascular symptoms: No chest pain, no tachycardia. Gastrointestinal symptoms: Abdominal pain, mild, pelvic, sharp, no nausea, no vomiting, no diarrhea, no constipation. Genitourinary symptoms: Vaginal bleeding, no dysuria, no hematuria, no vaginal discharge. Musculoskeletal symptoms: No back pain, no Muscle pain. Neurologic symptoms: No headache, no dizziness. Health Status Allergies: Allergic Reactions (Selected) Severity Not Documented Amoxicillin- No reactions were documented. Morphine- No reactions were documented.. Medications: (Selected) Documented Medications Documented Combivent Respimat 20 mcg-100 mcg/inh inhalation aerosol: 1 puff(s), INH, QID, 4 gm, 0 Refill(s) Latuda 40 mg oral tablet: 40 mg = 1 tab(s), PO, Daily, 0 Refill(s) Super B Complex: PO, Daily, 0 Refill(s) Symbicort 80 mcg-4.5 mcg/inh: INH, BID, 0 Refill(s) Xanax 0.25 mg oral tablet: 0.25 mg = 1 tab(s), PO, TID, 0 Refill(s) albuterol CFC free 90 mcg/inh inhalation aerosol: INH, QID, 0 Refill(s) biotin 5000 mcg oral tablet, disintegratin,000 mcg = 1 tab(s), PO, Daily, 0 Refill(s) lamoTRIgine 100 mg oral tablet: 100 mg = 1 tab(s), PO, BID, 0 Refill(s) levothyroxine 100 mcg (0.1 mg) oral tablet: 100 mcg = 1 tab(s), PO, Daily, 0 Refill(s) metFORMIN: 500 mg, PO, 0 Refill(s) metoprolol succinate 50 mg oral capsule, extended release: 50 mg = 1 cap(s), PO, Daily, 0 Refill(s). Past Medical/ Family/ Social History Medical history: No active or resolved past medical history items have been selected or recorded.. Social history: Social & Psychosocial Habits Substance Abuse 12/30/2018 Substance use: Never Tobacco 12/30/2018 Smoking tobacco use: 5-9 cigarettes (between 1 . Physical Examination CONST: -Overweight -Acute distress: No -Vitals: reviewed. SKIN: -Gross abnormalities: No EYES: -EOM intact, ARASH: -Sclera conjunctiva: Unremarkable. ENT: - pharynx pink and moist. NECK: -Supple ([id number]-[id number]): non-tender. CARD: -Rate and rhythm: Regular -Edema: No -Calf pain: No RESP: -Respiratory effort and chest excursion with respirations: Normal -Breath sounds equal bilaterally: Clear -Wheezes: No -Rales: No BACK: -Signs of pain with movement: No ABD: -Distended: No -Bruits: No -Bowel sounds: Normal. -Deep palpation: Non-tender, soft, no guarding or r (more content not included)... Normal [facility] ED Note - Physicianon 2020 ED Note - Physician Patient: Alyssa WOODY Age: 30 years Sex: FEMALE : 1990 Associated Diagnoses: Ovarian cyst; Pelvic congestion syndrome Author: DAVID GALVAN Basic Information Time seen: Date & time 10/11/2020 09:26:00. History source: Patient. Arrival mode: Private vehicle, walking. History of Present Illness Patient is a 30-year-old female presenting to the emergency department with complaint of pelvic pain starting 3 days ago.. Patient states that she feels a sharp pain near her cervix and has had mild spotting a few days over the last week. She states that she thinks she is late on her menstrual cycle supposed to have this last Sunday does not had a full menstrual cycle just a few days of spotting. She does state that she has intense menstrual cramps when she does have her menstrual cycles but states this is mildly different. She does report that she took home test which were negative. She contacted her oyster floater who indicated he could not see her for another month so she came to the emergency department for further evaluation. Patient denies any fevers, vomiting, upper abdominal pains, pain with urination, issues with bowels, chest pains, shortness of breath. Patient states that she is monogamous with her fianc?, no concerns of sexually transmitted diseases. Patient reports normal sexual intercourse. Review of Systems Constitutional symptoms: No fever, Skin symptoms: No rash, Eye symptoms: Vision unchanged. ENMT symptoms: No sore throat, no nasal congestion. Respiratory symptoms: No shortness of breath, no cough. Cardiovascular symptoms: No chest pain, no tachycardia. Gastrointestinal symptoms: Abdominal pain, mild, pelvic, sharp, no nausea, no vomiting, no diarrhea, no constipation. Genitourinary symptoms: Vaginal bleeding, no dysuria, no hematuria, no vaginal discharge. Musculoskeletal symptoms: No back pain, no Muscle pain. Neurologic symptoms: No headache, no dizziness. Health Status Allergies: Allergic Reactions (Selected) Severity Not Documented Amoxicillin- No reactions were documented. Morphine- No reactions were documented.. Medications: (Selected) Documented Medications Documented Combivent Respimat 20 mcg-100 mcg/inh inhalation aerosol: 1 puff(s), INH, QID, 4 gm, 0 Refill(s) Latuda 40 mg oral tablet: 40 mg = 1 tab(s), PO, Daily, 0 Refill(s) Super B Complex: PO, Daily, 0 Refill(s) Symbicort 80 mcg-4.5 mcg/inh: INH, BID, 0 Refill(s) Xanax 0.25 mg oral tablet: 0.25 mg = 1 tab(s), PO, TID, 0 Refill(s) albuterol CFC free 90 mcg/inh inhalation aerosol: INH, QID, 0 Refill(s) biotin 5000 mcg oral tablet, disintegratin,000 mcg = 1 tab(s), PO, Daily, 0 Refill(s) lamoTRIgine 100 mg oral tablet: 100 mg = 1 tab(s), PO, BID, 0 Refill(s) levothyroxine 100 mcg (0.1 mg) oral tablet: 100 mcg = 1 tab(s), PO, Daily, 0 Refill(s) metFORMIN: 500 mg, PO, 0 Refill(s) metoprolol succinate 50 mg oral capsule, extended release: 50 mg = 1 cap(s), PO, Daily, 0 Refill(s). Past Medical/ Family/ Social History Medical history: No active or resolved past medical history items have been selected or recorded.. Social history: Social & Psychosocial Habits Substance Abuse 12/30/2018 Substance use: Never Tobacco 12/30/2018 Smoking tobacco use: 5-9 cigarettes (between 1 . Physical Examination CONST: -Overweight -Acute distress: No -Vitals: reviewed. SKIN: -Gross abnormalities: No EYES: -EOM intact, ARASH: -Sclera conjunctiva: Unremarkable. ENT: - pharynx pink and moist. NECK: -Supple ([id number]-cy-qyarj): non-tender. CARD: -Rate and rhythm: Regular -Edema: No -Calf pain: No RESP: -Respiratory effort and chest excursion with respirations: Normal -Breath sounds equal bilaterally: Clear -Wheezes: No -Rales: No BACK: -Signs of pain with movement: No ABD: -Distended: No -Bruits: No -Bowel sounds: Normal. -Deep palpation: Non-tender, soft, no guarding or rebound tenderness EXT: Gross appearance and use of all four extremities: Unremarkable NEURO: -Patient: alert -Gross CN or Focal Neuro deficits: No -Oriented to: person, place and time. -Appearance and judgment: appropriate. Medical Decision Making 30-year-old female presenting to the emergency department complaint of pelvic pain starting 3 days ago. Recommended urinalysis, blood work and an ultrasound. Patient was in agreement. Patient's urinalysis is negative for infection, shows trace amount of blood, negative ketones, negative glucose, negative protein. Patient's urine is negative. Blood work shows a BUN/creatinine ratio of 22, normal lactic acid, normal white blood cell count, normal liver enzymes. Patient did not want to wait for ultrasound results stated she wanted to leave, I discussed this in detail with the patient indicated I could not tell her for certain what is causing her discomfort she indicated she understood the risks of leaving without the ultrasound report. I r (more content not included)... Normal [facility] ED Note-Nursingon 10-11-2020 ED Note-Nursing Patient arrives to [facility] ED via private car with c/o right sided pelvic pain for 2-3 dys rated 6/10. Patient states instead of having a normal period, she had a days worth of spotting; then, 2 days ago she had a little spotting as well. Patient took a test at home which was negative. Patient denies additional symptoms at this time. Denies urinary symptoms. patient is A/O X4. She denies needs at this time. Call light within reach. Will continue to monitor. Normal [facility] ED Patient Summaryon 021 ED Patient Summary [facility] - Emergency Department [address] [place] [address] PATIENT DISCHARGE INSTRUCTIONS Patient Information Name: YANI WOODY Age: 30 Years Date of : 1990 Reason For Visit: Pelvic pain; PELVIC AREA PAIN Arrival Time: 10/11/2020 09:15:57 Primary Care Physician: Provider, None Attending Physician: Linus Neumann MD Comment: Visit Diagnosis: Diagnoses This Visit Ovarian cyst (N83.209) Pelvic congestion syndrome (N94.89) Pelvic pain ([id number] -[id number]) Prescription Information: If you have been given a prescription for narcotics, seek immediate medical attention if you have any difficulty breathing or any sudden status changes such as confusion and sleepiness. If you or anyone you know is experiencing suicidal thoughts, mental health, alcohol and/or drug addiction problems; contact the [facility] 13/11 Crisis Hotline -Text 4HMRG jw 788275. If you received any narcotics, sedation, or any other medication that causes drowsiness for the next 24 hours, unless otherwise directed: ? Do not drive a car. ? Do not operate machinery such as power tools, lawn mowers, drills, sewing machines, or stoves ? Avoid alcoholic beverages and drugs for allergies, nerves, or sleep ? Do not make important personal or business decisions or sign any legal documents With: Address: When: [facility] [place] [address] [place] [address] Business (1) Within 2 to 4 days Comments: Follow-up with oyster floater in the next few days for reevaluation. Return at anytime for reevaluation or if you have worsening symptoms, vaginal bleeding, chest pains, shortness of breath or any other problems. Continue to stay hydrated. Medication Information: The exam and treatment you received today in the [facility] Emergency Department were for an urgent problem and are not intended as complete care. It is important for you to follow up with a doctor, nurse practitioner, or physician?s assistant customer service manager for ongoing care. If your symptoms become worse or you do not improve as expected and you are unable to reach your usual health care provider, you should return to the Emergency Department, we are available 24 hours a day. For those patients who have received Radiology results, the interpretation of your X-ray as given to you by our Emergency Department physician is only a preliminary report. The Radiologist will review your films and if there is a change in the diagnosis you will be notified by phone. Please make sure you have provided a working phone number so we can reach you if necessary. In the event that you had a lab culture while you were a patient in the Emergency Department, you will be notified by phone if there is a need to change your antibiotic. Please make sure you have provided a working phone number so we can reach you if necessary. [facility] Emergency Department has provided you with a complete list of medications post discharge. Please inform your programming coordinator/provider of your visit and for further instruction on these medications. Any specific questions regarding your chronic medications and dosages should be discussed with your primary care physician(s) and/or pharmacist. Medications to Continue That Have Not Changed Other Medications ALPRAZolam (Xanax 0.25 mg oral tablet) 1 tab(s) Oral 3 times a day. biotin (biotin 5000 mcg oral tablet, disintegrating) 1 tab(s) Oral every day. budesonide-formoterol (Symbicort 80 mcg-4.5 mcg/inh) Inhalation 2 times a day. ethinyl estradiol-norgestimate (Sprintec 0.25 mg-35 mcg oral tablet) 1 tab(s) Oral every day. lamoTRIgine (lamoTRIgine 100 mg oral tablet) 1 tab(s) Oral 2 times a day. levothyroxine (levothyroxine 100 mcg (0.1 mg) oral tablet) 1 tab(s) Oral every day. lurasidone (Latuda 40 mg oral tablet) 1 tab(s) Oral every day. metFORMIN 500 Milligram Oral. metoprolol (metoprolol succinate 50 mg oral capsule, extended release) 1 cap(s) Oral every day. multivitamin (Super B Complex) Oral every day. topiramate (Topamax 100 mg oral tablet) 1 tab(s) Oral 2 times a day. Visit Information Allergies: Substance Reaction Symptoms Type Comments amoxicillin Drug morphine Drug Vital Signs: Vitals and Measurements this Visit (last charted value for your 10/11/2020 visit) Vital Signs This Visit Temperature Oral: 36.6 DegC Peripheral Pulse Rate: 68 bpm Respiratory Rate: 16 br/min Systolic Blood Pressure: 142 mmHg Diastolic Blood Pressure: 89 mmHg SpO2: 98 % Oxygen Therapy: Room air Measurements This Visit Height/Length Dosin.400 cm Height/Length Estimated: 152.400 cm Weight Dosin.790 kg Weight Estimated: 99.790 kg Problems List: Problem Onset Comments No Problems found Patient Education Ovarian Cyst (Inserted Image. Unabl (more content not included)... [facility] Extra Greenon 10-11-2020 Tube Collected Yes Invalid Interpretation Code [facility] Comment on above: Performed By: #### 7 [id number], [id number] #### [facility] (DEFAULT) [address] [place] [address] 12546 Lactic Acidon 10-11-2020 Lactic Acid 12.4 mg/dL Normal 4.5-19.8 [facility] Comment on above: Performed By: #### 2 [id number] ####[facility] (DEFAULT)[address] [place] [address] 58529 Test Urine 1on U Preg Negative [facility] Comment on above: Performed By: #### 3 [id number] ####[facility] (DEFAULT)[address] [place] [address] 91069 U Preg Internal Control Pass [facility] Comment on above: Performed By: #### 3 [id number] ####[facility] (DEFAULT)[address] [place] [address] 33215 UA Pgcbp1wo 10-11-2020 UA Bacteria Rare [facility] Comment on above: Performed By: #### 2 [id number], [id number] ####[facility] (DEFAULT)[address] [place] [address] 44702 UA RBC 0-2 [facility] Comment on above: Performed By: #### 2 [id number], [id number] ####[facility] (DEFAULT)[address] [place] [address] 71890 UA Squam Epi Few [facility] Comment on above: Performed By: #### 2 [id number], [id number] ####[facility] (DEFAULT)[address] [place] [address] 17154 UA WBC 0-2 [facility] Comment on above: Performed By: #### 2 [id number], [id number] ####[facility] (DEFAULT)[address] [place] [address] 00545 UA w Micro, if Ind Standardo n 10-11-2020 Micro? Indicated [facility] Comment on above: Performed By: #### 2 [id number], [id number] ####[facility] (DEFAULT)[address] [place] [address] 35118 Breakpoint UA [facility] Comment on above: Performed By: #### 2 [id number], [id number] ####[facility] (DEFAULT)[address] [place] [address] 30633 Color (U) Yellow Normal [facility] Comment on above: Performed By: #### 2 [id number], [id number] ####[facility] (DEFAULT)[address] [place] [address] 02760 Glucose (U) [Mass/Vol] Negative [facility] Comment on above: Performed By: #### 2 [id number], [id number] ####[facility] (DEFAULT)[address] [place] [address] 12416 Ketones Ql (U) Negative [facility] Comment on above: Performed By: #### 2 [id number], [id number] ####[facility] (DEFAULT)[address] [place] [address] 13379 UA Bilirubin Negative [facility] Comment on above: Performed By: #### 2 [id number], [id number] ####[facility] (DEFAULT)[address] [place] [address] 83243 UA Blood TRACE Abnormal NEGATIVE [facility] Comment on above: Performed By: #### 2 [id number], [id number] ####[facility] (DEFAULT)[address] [place] [address] 19369 UA Clarity CLEAR Normal CLEAR [facility] Comment on above: Performed By: #### 2 [id number], [id number] ####[facility] (DEFAULT)[address] [place] [address] 10190 UA Leuk Est Negative Normal NEGATIVE [facility] Comment on above: Performed By: #### 2 [id number], [id number] ####[facility] (DEFAULT)[address] [place] [address] 06601 UA Nitrite Negative Normal NEGATIVE [facility] Comment on above: Performed By: #### 2 [id number], [id number] ####[facility] (DEFAULT)[address] [place] [address] 98912 UA pH 6.0 Normal 5-8 [facility] Comment on above: Performed By: #### 2 [id number], [id number] ####[facility] (DEFAULT)[address] [place] [address] 96736 UA Protein Negative Normal NEGATIVE [facility] Comment on above: Performed By: #### 2 [id number] ####[facility] (DEFAULT)[address] [place] [address] 31313 UA Spec Grav 1.025 Normal 1.001-1.035 [facility] Comment on above: Performed By: #### 2 [id number], [id number] ####[facility] (DEFAULT)[address] [place] [address] 00524 UA Urobilinogen 0.2 mg/dL Normal 0.2-1.0 [facility] Comment on above: Performed By: #### 2 [id number], [id number] ####[facility] (DEFAULT)[address] [place] [address] 89912 Urine Source Clean Catch Normal [facility] Comment on above: Performed By: #### 2 [id number], [id number] ####[facility] (DEFAULT)[address] [place] [address] 75699 US Pelvis Non-OB Completeon 10-11-2020 US Pelvis Non-OB Complete US Pelvis Non-OB Complete, US Transvaginal CLINICAL: pelvic pain. Right pelvic pain for 3 days. LMP 09/08/2020, . COMPARISON: No prior studies are available. TECHNIQUE: High-resolution grayscale and color Doppler sonography was performed in longitudinal and transverse section over the pelvic contents transabdominally and transvaginally. FINDINGS: The uterus measures 7.0 x 4.7 x 3.3 cm, with endometrial thickness of 4 mm, which is within normal limits.. There is no discrete myometrial mass. The right ovary measures 3.1 x 2.2 x 2.7 cm. The left ovary measures 2.6 x 2.5 x 1.7 cm. There is positive vascular flow to both ovaries. Small physiologic sized follicles are identified in both ovaries, as well as a 1.4 cm right ovarian follicular cyst, likely physiologic. There is no free pelvic fluid or mass seen on either side. Multiple nabothian cysts are present at the uterine cervix measuring up to 8 mm. The right periadnexal and pericervical vessels and the patient's reported area of pain, are prominent and mildly distended. This is a nonspecific finding, however may be associated with pelvic venous congestion syndrome. IMPRESSION: Uterus and ovaries show no gross abnormalities. Endometrial thickness is within normal limits, and a 1.4 cm follicular cyst of the right ovary is probably physiologic. The right periadnexal and pericervical vasculature are prominent, attention to the area of patient's clinical symptoms. This is a nonspecific finding, however may be associated with pelvic venous congestion syndrome. Correlate clinically. Final Dictated by: Aline Dominguez MD Dictated DT/TM: 10/11/20 12:23 Signed (Electronic Signature): Aline Dominguez MD 10/11/20 12:29 p Technologist: PM [facility] US Transvaginalon 10-11-2020 US Transvaginal US Pelvis Non-OB Complete, US Transvaginal CLINICAL: pelvic pain. Right pelvic pain for 3 days. LMP 09/08/2020, . COMPARISON: No prior studies are available. TECHNIQUE: High-resolution grayscale and color Doppler sonography was performed in longitudinal and transverse section over the pelvic contents transabdominally and transvaginally. FINDINGS: The uterus measures 7.0 x 4.7 x 3.3 cm, with endometrial thickness of 4 mm, which is within normal limits.. There is no discrete myometrial mass. The right ovary measures 3.1 x 2.2 x 2.7 cm. The left ovary measures 2.6 x 2.5 x 1.7 cm. There is positive vascular flow to both ovaries. Small physiologic sized follicles are identified in both ovaries, as well as a 1.4 cm right ovarian follicular cyst, likely physiologic. There is no free pelvic fluid or mass seen on either side. Multiple nabothian cysts are present at the uterine cervix measuring up to 8 mm. The right periadnexal and pericervical vessels and the patient's reported area of pain, are prominent and mildly distended. This is a nonspecific finding, however may be associated with pelvic venous congestion syndrome. IMPRESSION: Uterus and ovaries show no gross abnormalities. Endometrial thickness is within normal limits, and a 1.4 cm follicular cyst of the right ovary is probably physiologic. The right periadnexal and pericervical vasculature are prominent, attention to the area of patient's clinical symptoms. This is a nonspecific finding, however may be associated with pelvic venous congestion syndrome. Correlate clinically. Final Dictated by: Aline Dominguez MD Dictated DT/TM: 10/11/20 12:23 Signed (Electronic Signature): Aline Dominguez MD 10/11/20 12:29 p Technologist: NATASHA Yuan [facility] Video Visit - Telehealtho n 01-28-2020 Video Visit - Telehealth Chief Complaint Medication follow up via [employer] video Subjective Interval History/HPI This visit was conducted via two-way, real-time interactive video communications from my office using [employer] due to the restrictions of the COVID-19 pandemic. No physical exam was conducted other than those areas of the body visible to telecommunications with the patient located at [address] [place] [phone], with no one else in attendance. If it is determined that the patient should be evaluated in the clinic, the patient will be directed to the appropriate clinic or venue. The patient or their guardian verbally consented to this visit. Video time was 10 minutes with the patient face to face greater than 50% in addition to counseling and coordination of care. Patient is seen via video conferencing, audiovisual quality was fair, patient was able to engage and answer questions appropriately. She is working 6 days a week. Has to travel some distance for work. Baseline Stability is maintained and she has had no ER or Hospital visits since the last visit. Denies SIB or Denies ongoing suicidal ideation, intent and plan For now she reports her mood state has been fairly stable . She denied ongoing sadness or depressed moods. Reports fair energy and fair motivation. She has been active and denied anhedonia. Normal Appetite reported. Sleeping well, no issues falling or staying asleep. She denied feeling hopeless or worthless and denies ongoing morbid thoughts. . She denies having pervasive irritable or elated moods. She denies ongoing FOI or racing thoughts , denies increased busyness or distractibility. Impulse control has been fair No ongoing alcohol or drug abuse reported by pt. Pt denied ongoing excessive anxiety or worries at this time. Breakthrough anxiety is managed well with PRN XANAX Interpersonal issues were discussed: Support provided Insight Oriented/ behavior modifying/ Supportive Therapy: XXX Mood Assessment: Stable mood. No pervasive sadness or irritability reported. Medication Assessment: Pt reports good compliance. Will continue with current plan. ISP - Goals and Objectives of Treatment: Maintain mood stability Maintain good anxiety control Medication and Treatment Compliance Review of Systems ROS - Provider Constitutional: no fever, no chills, no sweats, no weakness Respiratory: no shortness of breath, no cough Cardiovascular: no chest pain Objective Vitals & Measurements HT: 156.0 cm WT: 124.0 kg Mental Status Exam Appearance.: Appropriately dressed and groomed, appears stated age, obese Behavior; Cooperative BH Speech: Normal rate and tone and normal prosody Affect: Full, Congruent Mood:;good' Thought Process/Associations: Logical and goal directed Thought Content.: Non-psychotic Cognition/Attention/Darion ry/Concentration: Alert and oriented x4 Insight/Judgement:improv ed Suicidal: Denies ongoing suicidal ideation, intent and plan. Homicidal: Denied ongoing homicidal ideations, intent or plan. Language: Within normal limits Fund of Knowledge: Adequate Risk Assessment Currently at low risk of self harm. Denied ongoing feelings of hopelessness. Denies ongoing suicidal ideation, intent and plan in session Diagnosis/Assessment/Uriel atment Plan Informed Consent: Standard Inform Consent (IC), Non-FDA Guidelines Off-Use IC Informed Consent Obtained: Yes, we discussed the diagnosis/diagnoses, the treatment options, treatment/treatments recommended vs. no treatment. We discussed risks and benefits of treatment options, treatment recommendations and vs. no treatment. 1. Bipolar I disorder, mild, current or most recent episode depressed, with anxious distress (F31.31: Bipolar disorder, current episode depressed, mild) 2. Anxiety Disorder NOS (F41.9: Anxiety disorder, unspecified) Ordered: alprazolam, 0.5 mg = 1 tab(s), Oral, TID, PRN as needed for anxiety, X 14 day(s), # 42 tab(s), Refills(s) 5, [id number] 156, cm, 01/28/20 8:32:00 EDT, Height/Length Dosing, 124, kg, 01/28/20 8:32:00 EDT, Weight Dosing 3. High risk medication use (Z79.899: Other halfway (current) drug therapy) Orders: lamotrigine, 300 mg = 2 tab(s), Oral, Bedtime, # 60 tab(s), Refills(s) 5, Pharmacy: [facility]/pharmacy #[id number], 156, cm, 01/28/20 8:32:00 EDT, Height/Length Dosing, 124, kg, 01/28/20 8:32:00 EDT, Weight Dosing lurasidone, 60 mg = 1 tab(s), Oral, Daily, @supper with food, # 30 tab(s), Refills(s) 5, Pharmacy: [facility]/pharmacy #[id number], 156, cm, 01/28/20 8:32:00 EDT, Height/Length Dosing, 124, kg, 01/28/20 8:32:00 EDT, Weight Dosing metformin, 500 mg = 1 tab(s), Oral, BID, # 60 tab(s), Refills(s) 5, Pharmacy: [facility]/pharmacy #[id number], 156, cm, 01/28/20 8:32:00 EDT, Height/Length Dosing, 124, kg, 01/28/20 8:32:00 EDT, Weight Dosing General Treatment Plan Pharmacological management: Alternative medication plans were discussed with the patient/guardian. All relevant side effects and potenti (more content not included)... Normal [facility] Comment on above: Result Comment: Elec tronically Signed By: TERE TENORIO, Jocelyn\.br\Date and Time Signed: 01/28/20 09:14 EDT Vital Signs Date Time Vital Sign Value Performing Clinician Facility 05-03-2023 13:16-0500 Body mass index (BMI) [Ratio] 54.61 kg/m2 Katerin Haynes APRN-SENIOR ORACLE DATABASE DEVELOPER Work Phone: [employer] 05-03-2023 13:16-0500 Body weight 131.09 kg Katerin Haynes OFFICE COORDINATOR RECEPTIONIST-SENIOR ORACLE DATABASE DEVELOPER [facility] 05-03-2023 13:16-0500 Diastolic blood pressure 74 mm[Hg] Katerin Haynes OFFICE COORDINATOR RECEPTIONIST-SENIOR ORACLE DATABASE DEVELOPER Work Phone: [employer] 05-03-2023 13:16-0500 Heart rate 88 /min Katerin Haynes OFFICE COORDINATOR RECEPTIONIST-SENIOR ORACLE DATABASE DEVELOPER [facility] 05-03-2023 13:16-0500 Respiratory rate 18 /min Katerin Haynes OFFICE COORDINATOR RECEPTIONIST-SENIOR ORACLE DATABASE DEVELOPER Work Phone: [employer] 05-03-2023 13:16-0500 SaO2% (BldA) [Mass fraction] 98 % Katerin Haynes OFFICE COORDINATOR RECEPTIONIST-SENIOR ORACLE DATABASE DEVELOPER Work Phone: [employer] 05-03-2023 13:16-0500 Systolic blood pressure 126 mm[Hg] Katerin Haynes OFFICE COORDINATOR RECEPTIONIST-SENIOR ORACLE DATABASE DEVELOPER Work Phone: [employer] 02-05-2023 09:45-0400 Body height 154.94 cm Jovita Murcia Other [employer] Other 02-05-2023 09:45-0400 Body mass index (BMI) [Ratio] 57.32 kg/m2 Jovita Murcia Other [employer] Other 02-05-2023 09:45-0400 Body temperature 98 [degF] Jovita Murcia Other [employer] Other 02-05-2023 09:45-0400 Body weight 137.62 kg Jovita Murcia Other [employer] Other 02-05-2023 09:45-0400 Respiratory rate 18 /min Jovita Murcia Other [employer] Other 02-05-2023 09:45-0400 SaO2% (BldA) [Mass fraction] 97 % Jovita Murcia Other [employer] Other 12-22-2022 09:30-0400 Diastolic blood pressure 96 mm[Hg] MD Aline Villalobos Work Phone: [facility] 12-22-2022 09:30-0400 Heart rate 60 /min MD Aline Villalobos Work Phone: [facility] 12-22-2022 09:30-0400 Respiratory rate 16 /min MD Aline Villalobos Work Phone: [facility] 12-22-2022 09:30-0400 SaO2% (BldA) [Mass fraction] 99 % MD Aline Villalobos Work Phone: [facility] 12-22-2022 09:30-0400 Systolic blood pressure 154 mm[Hg] MD Aline Villalobos Work Phone: [facility] 12-22-2022 08:06-0400 Body height 152.4 cm MD Aline Villalobos Work Phone: [facility] 12-22-2022 08:06-0400 Body weight 137.89 kg MD Aline Villalobos Work Phone: [facility] 07-22-2022 11:35-0400 Respiratory rate 18 /min Inge Leung DO Work Phone: [employer] 07-22-2022 08:00-0400 Body temperature 99 [degF] Inge Leung DO Work Phone: [employer] 07-22-2022 08:00-0400 Diastolic blood pressure 63 mm[Hg] Inge Leung DO Work Phone: [employer] 07-22-2022 08:00-0400 Heart rate 78 /min Inge Leung DO Work Phone: [employer] 07-22-2022 08:00-0400 SaO2% (BldA) [Mass fraction] 99 % Inge Leung DO Work Phone: [employer] 07-22-2022 08:00-0400 Systolic blood pressure 137 mm[Hg] Inge Lenug DO Work Phone: [employer] 07-18-2022 17:35-0400 Body height 154.94 cm Alesha Cortez Other [employer] Other 07-18-2022 17:35-0400 Body mass index (BMI) [Ratio] 62.16 kg/m2 Alesha Cortez Other [employer] Other 07-18-2022 17:35-0400 Body temperature 96 [degF] Alesha Cortez Other [employer] Other 07-18-2022 17:35-0400 Body weight 149.23 kg Alesha Cortez Other [employer] Other 07-18-2022 17:35-0400 Respiratory rate 18 /min Alesha Cortez Other [employer] Other 07-18-2022 17:35-0400 SaO2% (BldA) [Mass fraction] 97 % Alesha Cortez Other [employer] Other 07-15-2022 17:16-0400 Diastolic blood pressure 83 mm[Hg] Inge Leung DO Work Phone: [employer] 07-15-2022 17:16-0400 Heart rate 97 /min Inge Leung DO Work Phone: [employer] 07-15-2022 17:16-0400 Respiratory rate 16 /min Inge Leung DO Work Phone: [employer] 07-15-2022 17:16-0400 Systolic blood pressure 142 mm[Hg] Inge Leung DO Work Phone: [employer] 07-15-2022 15:44-0400 Body temperature 98.49 [degF] Inge Leung DO Work Phone: [employer] 03-21-2022 10:30-0500 Body height 154.94 cm [place] Other [employer] Other 03-08-2022 02:06-0500 Body weight 141.0696 kg LILIA SARA [facility] Comment on above: Performed By: #### UACSDAPHNE LYLES #### [facility] [address] [place] [address] Dr. Valeria Farris Encounters Encounter Date Encounter Type Care Provider Facility Start: 06-06-[address] OFFICE COORDINATOR RECEPTIONIST-SENIOR ORACLE DATABASE DEVELOPER [facility] Start: 06-05-2023 Orders Only Sadaf Louis [facility] Comment on above: Low back pain, unspe cified back pain laterality, unspecified chronicity, unspecified whether sciatica present (Primary Dx) Start: 05-29-2023 Telephone encounter Orders Sup port User Transcribe [facility] Comment on above: Sleep Lab Start: 05-22-2023 End: 05-22-2023 ambulatory ISRAEL BALDERAS Not Available Start: 05-16-2023 End: 05-17-2023 Emergency department patient visit [facility]INA HU[facility] Start: 05-15-2023 End: 05-15-2023 ambulatory NOAH PETERSON Not Available Start: 05-03-2023 End: 05-03-2023 ambulatory [facility] Start: 05-03-2023 End: 05-03-2023 Office outpatient visit 15 minutes [facility] OFFICE COORDINATOR RECEPTIONIST-SENIOR ORACLE DATABASE DEVELOPER Work Phone: [facility] Comment on above: Acute non-recurrent maxillary sinusitis (Primary Dx) Start: 04-19-2023 End: 04-19-2023 ambulatory CHARMAINE HAIRSTON Not Available Start: 02-05-2023 End: 02-05-2023 ambulatory Jovita Murcia Other [employer] Other Start: 02-05-2023 Office outpatient vi sit 15 minutes Jovita Murcia [facility] Start: 12-22-2022 End: 12-22-2022 ambulatory Aline Villalobos Facility:[facility] Start: 12-22-2022 End: 12-22-2022 ambulatory MD Aline Villalobos Work Phone: [facility] Work Phone: Start: 12-22-2022 End: 12-22-2022 Patient encounter procedure MD Aline Villalobos Work Phone: [facility] Work Phone: Start: 12-20-2022 End: 12-20-2022 ambulatory Aline Villalobos Facility:[facility] Start: 12-20-2022 End: 12-20-2022 ambulatory MD Aline Villalobos Work Phone: [facility] Work Phone: Start: 12-20-2022 End: 12-20-2022 Patient encounter procedure MD Aline Villalobos Work Phone: [facility] [place] Work Phone: Start: 09-04-2022 ambulatory RAYSA KAVEH Facilit y:[facility] Start: 07-20-2022 End: 07-22-2022 Evaluation and management of inpatient . NONE [facility] Start: 07-20-2022 End: 07-22-2022 Evaluation and management of inpatient Inge Leung DO Work Phone: [facility] Comment on above: RLTCS w/ IUD 07/20/22 F Apg 8/9 Wt 6#12 (Primary Dx) Start: 07-20-2022 End: 07-20-[address] NOAH PETERSON Facility:[facility] Start: 07-19-2022 End: 07-19-[address] NOAH PETERSON Facility:[facility]1 Start: 07-18-2022 End: 07-18-2022 ambulatory Alesha Cortez Other [employer] Other Start: 07-18-2022 Office outpatient vi sit 25 minutes Alesha Cortez [facility] Start: 07-17-2022 End: 07-17-[address] NOAH PETERSON Facility:[facility] Start: 07-17-2022 Evaluation and management of inpatient DR NOAH PETERSON Facility:[facility] Start: 07-15-2022 End: 07-15-2022 ambulatory INGE PISTEPHANСВЕТЛАНА [facility] Start: 07-15-2022 End: 07-15-2022 Subsequent hospital visit by physician Inge Leung DO Work Phone: [id number] Labor [facility] Delivery Start: 07-13-2022 End: 07-13-[address] NOAH PETERSON Facility:[facility] Start: 07-12-2022 End: 07-12-[address] LADONNA CARSON . Facility:[facility] Start: 07-10-2022 End: 07-10-[address] LADONNA CARSON . Facility:[facility] Start: 07-07-[address] NOAH PETERSON Facility :[facility] Start: 07-06-2022 End: 07-06-[address] NOAH PETERSON Facility:[facility] Start: 07-03-2022 End: 07-03-[address] LADONNA CARSON . Facility:[facility] Start: 06-30-2022 End: 06-30-[address] LADONNA CARSON . Facility:[facility] Start: 06-29-2022 End: 06-30-2022 ambulatory MATEO GODFREY [facility] Start: 06-29-2022 End: 06-29-2022 Subsequent hospital visit by physician [facility]AU [facility] Start: 06-29-2022 End: 06-29-[address] LADONNA CARSON . Facility:[facility] Start: 06-26-2022 End: 06-26-[address] NOAH PETERSON Facility:[facility] Start: 06-22-2022 End: 06-22-[address] LADONNA CARSON . Facility:[facility] Start: 06-19-2022 End: 06-19-[address] NOAH PETERSON Facility:[facility] Start: 06-18-2022 End: 06-18-[address] NOAH PETERSON Facility:[facility] Start: 06-17-2022 End: 06-18-[address] NOAH PETERSON Facility:[facility] Start: 05-29-2022 End: 05-29-[address] LADONNA CARSON . Facility:[facility] Start: 05-25-2022 End: 05-25-2022 ambulatory DAV VILLAR Facility:[facility]1 Start: 05-25-2022 End: 05-25-[address] LADONNA CARSON . Facility:[facility] Start: 05-23-2022 End: 05-23-[address] NOAH PETERSON Facility:[facility] Start: 05-18-2022 End: 05-19-2022 ambulatory MATEO GODFREY [facility] Start: 05-04-2022 End: 05-04-[address] LADONNA CARSON . Facility:[facility] Start: 04-11-2022 End: 04-12-[address] NOAH PETERSON Facility:[facility] Start: 04-03-2022 End: 04-04-[address] NOAH PETERSON Facility:[facility] Start: 03-28-2022 End: 03-29-[address] NOAH PETERSON Facility:[facility]1 Start: 03-21-2022 End: 03-21-2022 ambulatory Naga Umaña [employer] Other Start: 03-21-2022 Office outpatient ne w 30 minutes Naga Wells [facility] Start: 03-19-2022 End: 03-19-2022 ambulatory LILIA RUIZ Facility:[facility]1 Start: 03-15-2022 End: 03-16-[address] NOAH PETERSON Facility:[facility]1 Start: 03-03-2022 End: 03-04-[address] NOAH PETERSON Facility:[facility]1 Start: 02-27-2022 Blood pressure taking Jovita groves Other [employer] Other Start: 01-09-2022 End: 01-10-[address] NOAH PETERSON Facility:[facility] Start: 12-30-2021 End: 12-31-[address] NOAH PETERSON Facility:[facility] Start: 12-14-2021 End: 12-15-[address] NOAH PETERSON Facility:[facility] Start: 12-07-[address] NOAH PETERSON Facility :[facility] Start: 11-28-2021 End: 12-21-[address] NOAH PETERSON Facility:[facility] Start: 10-05-2021 End: 10-06-[address] NOAH PETERSON Facility:[facility]1 Start: 09-26-2021 ambulatory SHAIKH Vandana REED Facilit y:[facility]1 Start: 09-12-2021 End: 09-13-[address] GERARD GONZALEZ Facility:[facility]1 Start: 09-12-2021 End: 09-13-[address] NOAH PETERSON Facility:[facility] Start: 10-28-2020 History of abnormal cervical Papanicolaou smear Jovita Murcia Other [employer] Other Start: 01-30-2018 End: 01-31-2018 Patient encounter DEFAULT PHYSICIAN Facility:[facility] Procedures Date Procedure Procedure Detail Performing Clinician Start: 12-22-2022 Investigation of transfusion reaction MD Aline Villalobos Work Phone: Start: 07-22-2022 Glucose blood reagent strip Lexi A Jewel DO Work Phone: Start: 07-21-2022 Glucose blood reagent strip Lexi A Jewel DO Work Phone: Start: 07-21-2022 Glucose blood reagent strip Lexi A Williamson DO Work Phone: Start: 07-21-2022 Glucose blood reagent strip Lexi A Williamson DO Work Phone: Start: 07-21-2022 Blood count complete auto&auto difrntl wbc Nash Bush DO Work Phone: Start: 07-20-2022 Glucose blood reagent strip Lexi A Jewel DO Work Phone: Start: 07-20-2022 Cul prsmptv pthgnc o rganism scrn w/colony estimj Shelby N Ramirez DO Work Phone: Start: 07-20-2022 Culture bacterial quanttative colony count urine Horacio Almazan MD Work Phone: Start: 07-20-2022 End: 07-20-2022 delivery only Lexi A Williamson DO Work Phone: Start: 07-20-2022 Antibody screen Jamil Leung DO Work Phone: Start: 07-20-2022 End: 07-20-2022 Blood typing serologic abo Apoorva Easonob DO Work Phone: Start: 07-20-2022 End: 07-20-2022 Comprehensive metabolic panel Apoorva Margob DO Work Phone: Start: 07-20-2022 T. PALLIDUM AB [facility] rgob DO Work Phone: Start: 07-20-2022 H/O: section History of CS x2 Inge Leung DO Work Phone: Start: 07-15-2022 Ct thorax w/contrast material Diamante Estrada MD Work Phone: Start: 03-25-2023 Antibody screen Jamil Leung DO Work Phone: Start: 07-15-2022 Radiologic exam ches t single view Diamante Estrada MD Work Phone: Start: 07-15-2022 Comprehensive metabo lic panel Diamante Estrada MD Work Phone: Start: 07-15-2022 End: 07-15-2022 Blood typing serologic abo Diamante smith MD Work Phone: Start: 07-15-2022 Ecg routine ecg w/le ast 12 lds w/i&r Diamante Estrada MD Work Phone: Start: 06-29-2022 Assay of free thyroxine Mateo Godfrey MD Work Phone: Start: 05-29-2022 Microscopic observat ion [Identifier] in Cervix by Cyto stain Katerin Haynes APRN-SENIOR ORACLE DATABASE DEVELOPER Work Phone: Start: 12-28-2021 Diabetes mellitus screening Jovita Murcia Other Start: 11-30-2021 Adult depression scr eening assessment Katerin Haynes APRN-SENIOR ORACLE DATABASE DEVELOPER Work Phone: End: 04-13-2021 screening Jovita Murcia Other End: 07-27-2021 screening Jovita Murcia Other Counseling Jovita Murcia Other Depression screening Jovita Murcia Other visit Jovita nicolas Other Plan of Treatment Date Care Activity Detail Author Start: 12-21-2029 DTaP,Tdap and Td Vaccines (7 - Td or Tdap) DTaP,Tdap and Td Vaccines (7 - Td or Tdap) [facility] Start: 12-21-2029 DTaP/Tdap/Td vaccine (7 - Td or Tdap) DTaP/Tdap/Td vaccine (7 - Td or Tdap) [facility] Start: 05-29-2025 Screening for malign ant neoplasm of cervix Pap Smear [facility] Start: 05-16-2024 Adult BMI Screening Adult BMI Screen ing [facility] Start: 05-16-2024 Tobacco Screening Tobacco Screening [facility] Start: 05-03-2024 Adult BMI Follow Up Plan Adult BMI Follow Up Plan [facility] Start: 05-03-2024 Adult BMI Screening Adult BMI Screen ing [facility] Start: 05-03-2024 Tobacco Screening Tobacco Screening [facility] Start: 03-12-2024 Adult BMI Follow Up Plan Adult BMI Follow Up Plan [facility] Start: 06-25-2023 End: 06-25-2023 Patient encounter procedure 06/25/2023 10:30 AM EST Office Visit [facility] [address] [place] [id number] Terese Valladares, OFFICE COORDINATOR RECEPTIONIST-SENIOR ORACLE DATABASE DEVELOPER [address] [place] [address] [facility] Start: 06-14-2023 End: 06-14-2023 Patient encounter procedure 06/14/2023 8:15 AM EST Appointment [facility] [address] [place] [id number] [facility] Start: 06-05-2023 End: 06-05-2024 XR Lumbar spine Views AP W right bending and W left bending X-ray spine lumbar flexion and extension only 2 to 3 views Imaging Routine Low back pain, unspecified back pain laterality, unspecified chronicity, unspecified whether sciatica present Expected: 06/05/2023, Expires: 06/05/2024 [facility]: Comment on above: Expected: 06/05/2023 , Expires: 06/05/2024 Start: 06-05-2023 End: 06-05-2023 Patient encounter procedure 06/05/2023 1:30 PM EST [facility] [address] [place] [address] Katerin Haynes, OFFICE COORDINATOR RECEPTIONIST-SENIOR ORACLE DATABASE DEVELOPER [address] [place] [address] [facility] Start: 05-28-2023 End: 05-28-2023 Patient encounter procedure 05/28/2023 9:30 AM EST Office Visit [facility] [address] [place] [address] Terese Valladares, OFFICE COORDINATOR RECEPTIONIST-SENIOR ORACLE DATABASE DEVELOPER [address] [place] [address] [facility] Start: 05-18-2023 Hemoglobin A1c measurement A1C test (Diabetic or Prediabetic) [facility] Start: 12-22-2022 COVID-19 Vaccine ( season) COVID-19 Vaccine ( season) [facility] Start: 12-22-2022 Influenza vaccination Influenza Vacc ine [facility] Start: 12-22-2022 Cerebrospinal fluid culture [facility] Start: 12-22-2022 End: 12-22-2022 [facility] Start: 11-30-2022 [facility] Start: 11-21-2022 Influenza vaccination Flu vacc ine (Season Ended) [facility] Start: 07-20-2022 End: 07-20-2022 Patient encounter procedure 07/20/2022 Routine Perinatology [facility] Start: 07-13-2022 End: 07-13-2022 Patient encounter procedure 07/13/2022 Routine Perinatology [facility] Start: 07-06-2022 End: 07-06-2022 Patient encounter procedure 07/06/2022 Routine Perinatology [facility] Start: 02-05-2022 Screening for malign ant neoplasm of cervix [facility] Start: 11-21-2021 Influenza vaccination Flu vaccine (# 1) [facility] Start: 01-21-2021 COVID-19 Vaccine (2 - Booster for Hipolito series) COVID-19 Vaccine (2 - Booster for Hipolito series) [facility] Start: 02-05-2013 Screening for malign ant neoplasm of cervix Pap smear [facility] Start: 02-05-2010 Hepatitis C screening Hepatitis C sc reen [facility] Start: 02-05-2007 HIV screening HIV screen [facility] Start: 2004 Depression Screen Depression Screen [facility] Start: 02-05-2002 Lipid panel Lipids [facility] Start: 02-05-1998 Pneumococcal 0-64 ye ars Vaccine (1 - PCV) Pneumococcal 0-64 years Vaccine (1 - PCV) [facility] Start: 02-05-1993 Varicella vaccine (1 of 2 - 2-dose childhood series) Varicella vaccine (1 of 2 - 2-dose childhood series) [facility] Bacteria identified in Unspecified specimen by Aerobe culture [facility] Bacteria identified in Unspecified specimen by Anaerobe culture [facility] End: 07-15-2022 COVID-19, Rapid COVID-19, Rapid Microbiology STAT One Time for 1 Occurrences starting 07/15/2022 until 07/15/2022 [facility] [employer] Phone: Comment on above: One Time for 1 Occur rences starting 07/15/2022 until 07/15/2022 CT CHEST PULMONARY EMBOLISM W CONTRAST CT CHEST PULMONARY EMBOLISM W CONTRAST Imaging STAT 07/15/2022 5:48 PM EDT [facility] Phone: Culture, Strep B Scr een, Vaginal/Rectal Culture, Strep B Screen, Vaginal/Rectal Microbiology [employer] Label Print 07/20/2022 6:56 PM EDT [facility] Phone: EKG 12 Lead EKG 12 Lead ECG Routine 07/15/2022 4:23 AM EDT [facility] Phone: Glucose [Mass/volume ] in Serum or Plasma POCT glucose Point of Care Testing Routine 4X Daily (AC & HS) until discontinued starting 07/20/2022 [facility] Phone: Comment on above: 4X Daily (AC & HS) u ntil discontinued starting 07/20/2022 End: 07-15-2022 Hepatitis C Antibody [facility] Phone: Comment on above: One Time for 1 Occur rences starting 07/15/2022 until 07/15/2022 Meningitis+Encephali tis pathogens DNA and RNA panel - Cerebral spinal fluid by SARANYA with non-probe detection [facility] Microscopic observat ion [Identifier] in Unspecified specimen by Gram stain [facility] Nonrebreather mask oxygen Nonrebreather mask oxygen Respiratory Care Routine As directed - RT (PRN) until discontinued starting 07/15/2022 [facility] Phone: Comment on above: As directed - RT (MS N) until discontinued starting 07/15/2022 Oxygen therapy [Mini mum Data Set] Initiate Oxygen Therapy Protocol Respiratory Care Routine Daily until discontinued starting 07/20/2022 [facility] Phone: Comment on above: Daily until disconti nued starting 07/20/2022 Patient Education [facility] Lumb ar Puncture Discharge Instructions [facility] Work Phone: PROFILE I PROF ILE I Lab [employer] Label Print 07/15/2022 4:12 PM EDT [facility] Phone: End: 07-15-2022 RAPID INFLUENZA A/B ANTIGENS RAPID INFLUENZA A/B ANTIGENS Microbiology STAT One Time for 1 Occurrences starting 07/15/2022 until 07/15/2022 [facility] Phone: Comment on above: One Time for 1 Occur rences starting 07/15/2022 until 07/15/2022 End: 07-20-2022 Specimen hold [facility] Phone: Comment on above: Once for 1 Occurrenc es starting 07/20/2022 until 07/20/2022 End: 07-20-2022 Specimen to Pathology Specimen to Pathology Lab Routine One Time for 1 Occurrences starting 07/20/2022 until 07/20/2022 [facility] Phone: Comment on above: One Time for 1 Occur rences starting 07/20/2022 until 07/20/2022 Spirometry panel Incentive linda metry Respiratory Care Routine Every 2hr while awake until discontinued starting 07/20/2022 [facility] Work Phone: Comment on above: Every 2hr while awak e until discontinued starting 07/20/2022 End: 07-15-2022 Troponin I.cardiac [Mass/volume] in Serum or Plasma Troponin Lab STAT One Time for 1 Occurrences starting 07/15/2022 until 07/15/2022 [facility] Work Phone: Comment on above: One Time for 1 Occur rences starting 07/15/2022 until 07/15/2022 Immunizations Immunization Date Immunization Notes Care Provider Radha bowen 04-21-2014 influenza virus vaccine, unspecified formulation Katerin Haynes OFFICE COORDINATOR RECEPTIONIST-SENIOR ORACLE DATABASE DEVELOPER Work Phone: [facility] NEGATED: Highlighted row has not occurred!07-22-2022 tetanus toxoid, reduced diphtheria toxoid, and acellular pertussis vaccine, adsorbed Inge Leung DO Work Phone: [facility] Payers Date Payer Category Payer Unknown 2022 Unknown [id number] 2022 Medicaid [id number] 2022 Medicaid [facility] MEDICAID [id number] 2022-Present [address] [place] [address] [id number]. [id number] 2014 Unknown [id number] 1992 Unknown [id number] 2.16.840.1.342112.3.579.2. 647 1992 Unknown [id number] 2.16.840.1.064213.3.579.2. 175 1992 Unknown [id number] 2.16.840.1.241384.3.579.2. 175 1992 Unknown [id number] 2.16.840.1.771009.3.579.2. 175 1992 Unknown [id number] 2.16.840.1.102541.3.579.2. 175 1992 Unknown [id number] 2.16.840.1.633362.3.579.2. 593 1992 Unknown [id number] 2.16.840.1.489775.3.579.2. 593 1992 Unknown [id number] 2.16.840.1.469905.3.579.2. 593 1992 Unknown [id number] 2.16.840.1.876857.3.579.2. 593 1992 Unknown [id number] 2.16.840.1.593650.3.579.2. 593 1992 Unknown [id number] 2.16.840.1.226811.3.579.2. 593 1992 Unknown [id number] 2.16.840.1.396788.3.579.2. 593 1992 Unknown [id number] 2.16.840.1.369660.3.579.2. 593 1992 Unknown [id number] 2.16.840.1.455516.3.579.2. 593 1992 Unknown [id number] 2.16.840.1.639388.3.579.2. 593 1992 Unknown [id number] 2.16.840.1.999195.3.579.2. 593 1992 Unknown [id number] 2.16.840.1.547053.3.579.2. 593 1992 Unknown [id number] 2.16.840.1.756351.3.579.2. 593 1992 Unknown [id number] 2.16.840.1.732710.3.579.2. 593 1992 Unknown [id number] 2.16.840.1.949097.3.579.2. 593 1992 Unknown [id number] 2.16.840.1.226008.3.579.2. 593 1992 Unknown [id number] 2.16.840.1.301940.3.579.2. 593 1992 Unknown [id number] 2.16.840.1.830329.3.579.2. 593 1992 Unknown [id number] 2.16.840.1.303891.3.579.2. 593 1992 Unknown [id number] 2.16.840.1.761704.3.579.2. 593 1992 Unknown [id number] 2.16.840.1.822099.3.579.2. 593 1992 Unknown [id number] 2.16.840.1.468342.3.579.2. 593 1992 Unknown [id number] 2.16.840.1.395107.3.579.2. 593 1992 Unknown [id number] 2.16.840.1.046525.3.579.2. 593 1992 Unknown [id number] 2.16.840.1.496732.3.579.2. 593 1992 Unknown [id number] 2.16.840.1.893268.3.579.2. 593 1992 Unknown [id number] 2.16.840.1.287020.3.579.2. 593 1992 Unknown [id number] 2.16.840.1.816070.3.579.2. 593 1992 Unknown [id number] 2.16.840.1.487792.3.579.2. 593 1992 Unknown [id number] 2.16.840.1.719974.3.579.2. 593 1992 Unknown [id number] 2.16.840.1.919193.3.579.2. 593 1992 Unknown [id number] 2.16.840.1.940795.3.579.2. 593 1992 Unknown [id number] 2.16.840.1.677881.3.579.2. 593 1992 Unknown [id number] 2.16.840.1.666742.3.579.2. 593 1992 Unknown [id number] 2.16.840.1.044139.3.579.2. 593 1992 Unknown [id number] 2.16.840.1.331007.3.579.2. 593 1992 Unknown [id number] 2.16.840.1.284182.3.579.2. 593 1992 Unknown [id number] 2.16.840.1.744557.3.579.2. 593 1992 Unknown [id number] 2.16.840.1.822679.3.579.2. 593 1992 Unknown [id number] 2.16.840.1.330217.3.579.2. 593 1992 Unknown [id number] 2.16.840.1.713128.3.579.2. 1286 1992 Unknown [id number] 2.16.840.1.574895.3.579.2. 1286 1992 Unknown [id number] 2.16.840.1.887377.3.579.2. 1286 1992 Unknown [id number] 2.16.840.1.829192.3.579.2. 1259 1992 Unknown [id number] 2.16.840.1.291371.3.579.2. 1259 1992 Unknown [id number] 2.16.840.1.443088.3.579.2. 1259 1959 Medicaid [id number] 1.2.840.633038.1.13.239.2. 7.3.611499.315 1959 Private Health Insurance [id number] 1.2.840.519889.1.13.239.2. 7.3.087005.315 1959 Self-pay 1959 Unknown [id number] 1959 Worker's Compensation [id number] 2.16.840.1.446960.19 Private Health Insurance [id number] 2.16.840.1.978543.19 Private Health Insurance [facility] [id number] Unknown [id number] 2.16.840.1.377660.19 Unknown [id number] 2.16.840.1.077213.3.579.2. 593 Unknown [id number] 2.16.840.1.454880.3.579.2. 531 Unknown [id number] 2.16.840.1.236226.3.579.2. 531 Social History Date Type Detail Facility Unknown if ever smoked [facility] Other Start: 06-03-2020 End: 05-03-2023 Sex Assigned At [facility] Other Start: 06-22-2022 End: 11-16-2022 Tobacco smoking status MEIS Ex-smoker [facility] Start: 05-25-2020 End: 11-20-2017 History of tobacco use Current smoker [facility] Phone: End: 11-20-2017 History of tobacco use Cigarette Smoker [facility] Phone: Start: 06-22-2022 End: 11-16-2022 Tobacco use and exposure Smokeless tobacco non-user [facility] Phone: Start: 06-29-2022 End: 05-16-2023 Alcohol intake Ex-drinker (finding) [facility] Phone: Start: 06-22-2022 Tobacco Comment Quit in 201806/22/2022 [employer] Phone: Start: 11-20-2021 [facility] Phone: Start: 1992 Sex Assigned At Female [facility] Start: 07-10-2022 End: 07-20-2022 Exposure to SARS-CoV-2 (event) Not sure [facility] Phone: Start: 06-03-2020 End: 11-16-2022 Cigarettes smoked current (pack per day) - [facility] Adolescent depressio n [facility] assessment 2 [facility] Start: 11-30-2021 Education 17 [facility] Start: 11-16-2022 Tobacco Comment quit in July [facility] Start: 05-16-2022 Gender identity Identifies as female gender (finding) [facility] [employer] [facility] Start: 05-25-2022 Sexual orientation Heterosexual (finding) [facility] [employer] [facility] Medical Equipment Procedure Code Equipment Code Equipment Origin al Text Equipment Identifier Dates BD ULTRA-FINE PE N NEEDLES 29G X 12.7MM MISC [id number] Start: 04-03-2022 ONETOUCH ULTRA strip [id number] Star t: 06-11-2022 DROPLET PEN NEED LES 29G X 12MM MISC [id number] Start: 06-30-2022 Clinical Notes 01-28-2020 to 05-29-2023 Telephone Encounter - Ernestina Simpson - 05/29/2023 10:23 AM ESTTelephone Encounter - Ernestina Simpson - 05/29/2023 10:23 AM VANESA Coley - 05/03/2023 1:15 PM EST Note Date & Type Note Facility 05-29-2023 Miscellaneous Notes Formattin g of this note might be different from the original. Pt called to schedule a sleep study or appointment with collin Dawn advised we have nothing as of now and either order is in her chart to schedule with gave her the number to sleep medicine [place] documented in this encounter [facility] 05-29-2023 Telephone encount er Note Pt called to schedule a sleep study or appointment with collin Dawn advised we have nothing as of now and either order is in her chart to schedule with gave her the number to sleep medicine [place] [facility] 05-03-2023 History of Presen t illness Narrative Images from the original note were not included. [id number] [facility] [facility] [id number] SUBJECTIVE: Patient ID: Yani Bang is a 33 y.o. female. Patient presents to the office with complaints of sinus congestion and dizziness. Her kids have also been sick as well. Nasal Congestion Associated symptoms include congestion. Pertinent negatives include no coughing, ear pain, neck pain, shortness of breath, sinus pressure or sore throat. Dizziness Associated symptoms include congestion. Pertinent negatives include no abdominal pain, arthralgias, chest pain, coughing, fatigue, fever, joint swelling, nausea, neck pain, numbness, rash, sore throat, vomiting or weakness. The following portions of the patient's history were reviewed and updated as appropriate: allergies, current medications, past family history, past medical history, past social history, past surgical history and problem list. REVIEW OF SYSTEMS: Review of Systems Constitutional: Negative for fatigue, fever and unexpected weight change. HENT: Positive for congestion. Negative for ear pain, sinus pressure, sinus pain and sore throat. Eyes: Negative for photophobia, pain, discharge and visual disturbance. Respiratory: Negative for cough and shortness of breath. Cardiovascular: Negative for chest pain, palpitations and leg swelling. Gastrointestinal: Negative for abdominal pain, diarrhea, nausea and vomiting. Endocrine: Negative for polydipsia, polyphagia and polyuria. Genitourinary: Negative for difficulty urinating, frequency, hematuria and urgency. Musculoskeletal: Negative for arthralgias, gait problem, joint swelling and neck pain. Skin: Negative for pallor and rash. Neurological: Positive for dizziness. Negative for weakness, light-headedness and numbness. Psychiatric/Behavioral: Negative for sleep disturbance. The patient is not nervous/anxious. PHYSICAL EXAMINATION: Vitals: 05/03/23 1316 BP: 126/74 Pulse: 88 Resp: 18 SpO2: 98% Weight: 131.1 kg (289 lb) Physical Exam Constitutional: Appearance: She is well-developed. HENT: Head: Normocephalic and atraumatic. Right Ear: External ear normal. Left Ear: External ear normal. Nose: Congestion present. Eyes: Conjunctiva/sclera: Conjunctivae normal. Pupils: Pupils are equal, round, and reactive to light. Cardiovascular: Rate and Rhythm: Normal rate and regular rhythm. Heart sounds: Normal heart sounds. Pulmonary: Effort: Pulmonary effort is normal. Breath sounds: Normal breath sounds. Musculoskeletal: Cervical back: Normal range of motion. Skin: General: Skin is warm and dry. Neurological: Mental Status: She is alert and oriented to person, place, and time. Psychiatric: Mood and Affect: Mood normal. ASSESSMENT/PLAN: Yani was seen today for nasal congestion and dizziness. Diagnoses and all orders for this visit: Acute non-recurrent maxillary sinusitis Other orders - azithromycin (ZITHROMAX) 250 mg tablet; Take 1 tablet (250 mg total) by mouth in the morning for 5 days. Take 2 tablets the first day, then 1 tablet daily for 4 days.. Follow-up: [facility] Follow up with routine visits Patient noted to have elevated BMI and the following intervention(s) were applied: encouragement to exercise. VANESA Frank 05/03/23 1330 documented in this encounter [facility] 02-05-2023 Evaluation note Encounter Date Diagnosis Assessment Notes Jan, Suspected COVID-19 virus infection (ICD-10 - Z20.822) Jan, Bronchitis (ICD-10 - J40) Drink plenty fluids, get plenty of rest. Take the doxycycline and prednisone as prescribed until gone. Use the albuterol inhaler as prescribed as needed for cough or shortness of breath. Take the benzonatate tablets as prescribed as needed for cough. Take Tylenol or Motrin as needed for aches pains or fevers. Follow-up with your family physician if no improvement in 2 to 3 days 16 Jan, 2023 Acute sinusitis, recurrence not specified, unspecified location (ICD-10 - J01.90) [facility] Other 04-01-2023 History of Present illness Narrative* Diann Diaz, DO - 07/22/2022 12:40 AM EDT POST OPERATIVE DAY # 2 Yani Bang is a 32 y.o. female This patient was seen and examined today. Her was complicated by: Patient Active Problem List Diagnosis Congenital abnormalities of uterus, antepartum Ultrasound recheck of pyelectasis, antepartum Tobacco use disorder affecting , antepartum Obesity complicating Placenta previa without hemorrhage, antepartum Suspected placental problem not found Diabetes mellitus during , antepartum Abnormality in heart rate/rhythm, antepartum condition or complication Oligohydramnios, antepartum 35 weeks gestation of 36 weeks gestation of RLTCS w/ IUD 07/20/22 F Apg 8/9 Wt 6#12 Other abnormal findings on screening of mother History of delivery Morbid obesity with BMI of 60.0-69.9, adult (HCC) Hypertension affecting in third trimester Insulin controlled gestational diabetes mellitus (GDM) in third trimester IUD (intrauterine device) in place Today she is doing well without any chief complaint. Her lochia is light. She denies chest pain, shortness of breath, headache, lightheadedness. She is breast and bottle feeding and she denies any signs or symptoms of mastitis. She is ambulating well. She is voiding without difficulty. She currently denies S/S of depression. Flatus present. Bowel movement present. She is tolerating solids. Vital Signs: Vitals: 07/21/22 1200 07/21/22 1600 07/21/22 1806 07/21/221999 BP: 130/69 124/77 136/60 Pulse: 71 80 79 Resp: 18 18 18 16 Temp: 98.4 F (36.9 C) 98.4 F (36.9 C) 98.1 F (36.7 C) TempSrc: Oral Oral Oral SpO2: 95% Urine Input & Output last 24hrs: Intake/Output Summary (Last 24 hours) at 07/22/2022 0040 Last data filed at 07/21/2022 1136 Gross per 24 hour Intake 850 ml Output 1750 ml Net -900 ml Physical Exam: General: no apparent distress, alert, and cooperative Neurologic: alert, oriented, normal speech, no focal findings or movement disorder noted Lungs: No increased work of breathing, good air exchange, clear to auscultation bilaterally, no crackles or wheezing Heart: regular rate and rhythm Abdomen: abdomen soft, non-distended, non-tender Fundus: non-tender, normal size, firm, below umbilicus Incision: clean, dry, and intact, prevena in place Extremities: no calf tenderness, non edematous Labs: Lab Results Component Value Date WBC 15.6 (H) 07/21/2022 HGB 10.8 (L) 07/21/2022 HCT 33.5 (L) 07/21/2022 MCV 88.2 07/21/2022 PLT 197 07/21/2022 Assessment/Plan: Yani Bang is a POD # 2 s/p RLTCS with IUD placement - Doing well, VSS - female in General Care Nursery - Encourage ambulation and use of incentive spirometer - S/p her catheter and saline lock IV on POD #1 - CBC completed Hgb 10.8 - Motrin/Tylenol/Brunilda for pain - Lovenox 40 mg qd Rh positive/Rubella immune Breast feeding - S/s of mastitis reviewed - Patient denies sx at this time cHTN - PreE labs wnl, P/C 0.18 - BP normotensive - Denies s/s of PreE - On labetalol 400 mg TID - Continue to monitor closely 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 BMI 62 Counseling Completed: Secondary Smoke risks and Sudden Syndrome were reviewed with recommendations. Infant sleeping, back to sleep and avoidance of co-sleeping recommendations were reviewed. Signs and Symptoms of Post Depression were reviewed. The patient is to call if any occur. Signs and symptoms of Mastitis were reviewed. The patient is to call if any occur for follow up. Discharge instructions including pelvic rest, incision care, 15 lb weight restriction, no driving with pain medicine and office follow-up were reviewed with patient Attending Physician: Dr. Fish Estrada MD Band Tacker Resident 07/22/2022, 12:40 AM Attending Physician Statement I have personally seen, evaluated and discussed the care of Yani Bang, including pertinent history and exam findings with the resident. I have reviewed and edited their note in the electronic medical record. The maurer elements of all parts of the encounter have been performed/reviewed by me. I agree with the assessment, plan and orders as documented by the resident. The level of care submitted represents to the best of my ability the care documented in the medicalrecord today. GC Modifier. This service has been performed in part by a resident under the direction of a teaching physician. Reviewed wound care at home. She has an appointment Sunday for Prevena removal. Will make sure she gets full course of Flagyl prior to discharge. Patient stable for discharge this morning Attending's Name: Diann Diaz DO Date: 07/22/2022 Time: 9:42 AM * Jennifer Moffett MD - 07/21/2022 4:10 AM EDT Images from the original note were not included. POST OPERATIVE DAY # 1 Yani Bang is a 32 y.o. female This patient was seen and examined today. RLTCS w/ IUD on 07/20/22 Her was complicated by: Patient Active Problem List Diagnosis Congenital abnormalities of uterus, antepartum Ultrasound recheck of pyelectasis, antepartum Tobacco use disorder affecting , antepartum Obesity complicating Placenta previa without hemorrhage, antepartum Suspected placental problem not found Diabetes mellitus during , antepartum Abnormality in heart rate/rhythm, antepartum condition or complication Oligohydramnios, antepartum 35 weeks gestation of 36 weeks gestation of RLTCS w/ IUD 07/20/22 F Apg 8/9 Wt 6#12 Other abnormal findings on screening of mother History of delivery Morbid obesity with BMI of 60.0-69.9, adult (HCC) Hypertension affecting in third trimester Insulin controlled gestational diabetes mellitus (GDM) in third trimester IUD (intrauterine device) in place Today she is doing well without any chief complaint. Her lochia is light. She denies chest pain, shortness of breath, headache, lightheadedness, blurred vision and peripheral edema. She is breast feeding and she denies any signs or symptoms of mastitis. She has not yet ambulated. She is voiding with her in place. She currently denies S/S of depression. Flatus absent. Bowel movement absent. She is tolerating solids. Vital Signs: Vitals: 07/20/22 2130 07/20/22 2200 07/21/22 0000 07/21/22 0200 BP: (!) 152/90 (!) 158/90 139/65 Pulse: 82 77 80 Resp: 20 18 16 Temp: 98.2 F (36.8 C) 97.5 F (36.4 C) 97.8 F (36.6 C) TempSrc: Oral Oral Oral SpO2: 92% 95% 94% 96% Urine Input & Output last 24hrs: Intake/Output Summary (Last 24 hours) at 07/21/2022 0302 Last data filed at 07/20/2022 2115 Gross per 24 hour Intake 1900 ml Output 963 ml Net 937 ml Physical Exam: General: no apparent distress, alert and cooperative Neurologic: alert, oriented, normal speech, no focal findings or movement disorder noted Lungs: No increased work of breathing, good air exchange, clear to auscultation bilaterally, no crackles or wheezing Heart: Regular rate and rhythm, normal S1 and S2, no S3 or S4, and no murmur noted Abdomen: abdomen soft, non-distended, non-tender, bowel sounds present Fundus: non-tender, firm, below umbilicus Incision: Prevena in place and functioning Extremities: no calf tenderness, non edematous Labs: Lab Results Component Value Date WBC 10.2 07/20/2022 HGB 11.0 (L) 07/20/2022 HCT 32.8 (L) 07/20/2022 MCV 85.4 07/20/2022 PLT 200 07/20/2022 Assessment/Plan: Yani Bang is a POD # 1 s/p RLTCS with IUD insertion - Doing well, VSS with persistent elevated BP - Female in General Care Nursery - Encourage ambulation and use of incentive spirometer - D/C her catheter and saline lock IV on POD #1 - CBC ordered for this AM - Toradol for pain, transition to PO Motrin/Tylenol/Brunilda - Flagyl x48h postop - Lovenox 40mg BID - TXA x1 preop Rh positive/Rubella immune Breast feeding - Denies s/s mastitis at this time Chronic HTN - PreE labs wnl, P/C 0.18 - Pt previously on Labetalol 200mg BID, BP persistently overnight, will increase to 400mg TID - Pt denies s/s preE at this time Pregestational Diabetes - Diagnosed off early GTT - AC/HS blood sugars ordered with sliding scale as needed - Recommend 2hr GTT as outpatient Hypothyroidism - Pt on synthroid 50mcg prior to , will initiate - Vitals stable overall, currently asymptomatic Depression - Mood stable, reports good support - Previously on Celexa, desires to restart - Declines SW consult, reports she has a therapist she is comfortable with - Discussed s/s depression BMI 62 Continue post-op care. Counseling Completed: Secondary Smoke risks and Sudden Infant Syndrome were reviewed with recommendations. Infant sleeping, back to sleep and avoidance of co-sleeping recommendations were reviewed. Signs and Symptoms of Post Depression were reviewed. The patient is to call if any occur. Signs and symptoms of Mastitis were reviewed. The patient is to call if any occur for follow up. Discharge instructions including pelvic rest, incision care, 15 lb weight restriction, no driving with pain medicine and office follow-up were reviewed with patient Attending Physician: Dr. Betina Bush, Band Tacker Resident 07/21/2022, 3:02 AM Attending Physician Statement I have discussed the care of Yani Bang, including pertinent history and exam findings, with the resident. I have reviewed the maurer elements of all parts of the encounter with the resident. I agree with the assessment, plan and orders as documented by the resident. (GC Modifier) Electronically signed by Jennifer Moffett MD 07/21/2022 10:00 AM [facility] [employer] [employer] [facility] Phone: 1(325) 814-447003-30-2023 Evaluation note* Diagnosis RLTCS w/ IUD 07/20/22 F Apg 8/9 Wt 6#12- Primary Other postprocedural status RLTCS w/ IUD 07/20/22 F Apg 8/9 Wt 6#12 Other postprocedural status 36 weeks gestation of state, incidental Other abnormal findings on screening of mother History of CS x2 Other postprocedural status Morbid obesity with BMI of 60.0-69.9, adult (HCC) Hypertension affecting in third trimester Hx GDMA2 IUD (intrauterine device) in place Presence of intrauterine contraceptive device Chronic hypertension affecting documented in this encounter [facility] [employer] Phone: 1([phone]) 727-834903-28-2023 Evaluation note* Encounter Date Diagnosis Assessment Notes Treatment Notes Treatment Clinical Notes Jun, Sore throat (ICD-10 - J02.9) Jun, Viral URI (ICD-10 - J06.9) Advised patient that COVID/Influenza A/B test and rapid Strep test was negative today. Advised patient that will treat as viral URI. Supportive care as directed, increase fluids and rest, Tylenol OTC as needed, rx of Flonase and Cetirizine which is safe in , cool mist humidifier, throat lozenges. Discussed infection control practices such as good hand washing and mask wearing. Patient to follow up with PCP if symptoms persist or worsen despite treatment. Immediate eval for SOB, difficulty breathing, chest pain, fevers that do not break with antipyretic or any other concerning symptoms as reviewed on patient education handout. Patient verbalizes understanding and is agreeable to treatment plan. Patient left in stable condition. Jun, Contact with and (suspected) exposure to other viral communicable diseases (ICD-10 - Z20.828) [facility] Other 11-29-2022 Evaluation note* Encounter Date Diagnosis Assessment Notes Treatment Notes Treatment Clinical Notes Feb, Strain of right shoulder, initial encounter (ICD-10 - S46.911A) We will treat this as a shoulder strain for now. We will begin gentle motion and strength exercise with hopes that the condition will improve with conservative measures. If pain persists and function is not improving we will need to consider MRI to assess for rotator cuff injury or other intra-articular injury. Patient instructed to get out fo the sling and work on motions. Patient will remain off of work. We will apply for [facility] approval for therapy. [facility] Other 06-21-2021 NoteEducation Materials Obstetrics and Gynecology Ovarian Cyst An ovarian cyst is a fluid-filled sac that forms on an ovary. The ovaries are small organs that produce eggs in women. Various types of cysts can form on the ovaries. Some may cause symptoms and require treatment. Most ovarian cysts go away on their own, are not cancerous (are benign), and do not cause problems. Common types of ovarian cysts include: ? Functional (follicle) cysts. ? Occur during the menstrual cycle, and usually go away with the next menstrual cycle if you do notget . ? Usually cause no symptoms. ? Endometriomas. ? Are cysts that form from the tissue that lines the uterus (endometrium). ? Are sometimes called ?chocolate cysts? because they become filled with blood that turns brown. ? Can cause pain in the lower abdomen during intercourse and during your period. ? Cystadenoma cysts. ? Develop from cells on the outside surface of the ovary. ? Can get very large and cause lower abdomen pain and pain with intercourse. ? Can cause severe pain if they twist or break open (rupture). ? Dermoid cysts. ? Are sometimes found in both ovaries. ? May contain different kinds of body tissue, such as skin, teeth, hair, or cartilage. ? Usually do not cause symptoms unless they get very big. ? Theca lutein cysts. ? Occur when too much of a certain hormone (human chorionic gonadotropin) is produced and overstimulates the ovaries to produce an egg. ? Are most common after having procedures used to assist with the conception of a baby (in vitro fertilization). What are the causes? Ovarian cysts may be caused by: ? Ovarian hyperstimulation syndrome. This is a condition that can develop from taking fertility medicines. It causes multiple large ovarian cysts to form. ? Polycystic ovarian syndrome (PCOS). This is a common hormonal disorder that can cause ovarian cysts, as well as problems with your period or fertility. What increases the risk? The following factors may make you more likely to develop ovarian cysts: ? Being overweight or obese. ? Taking fertility medicines. ? Taking certain forms of hormonal control. ? Smoking. What are the signs or symptoms? Many ovarian cysts do not cause symptoms. If symptoms are present, they may include: ? Pelvic pain or pressure. ? Pain in the lower abdomen. ? Pain during sex. ? Abdominal swelling. ? Abnormal menstrual periods. ? Increasing pain with menstrual periods. How is this diagnosed? These cysts are commonly found during a routine pelvic exam. You may have tests to find out more about the cyst, such as: ? Ultrasound. ? X-ray of the pelvis. ? CT scan. ? MRI. ? Blood tests. How is this treated? Many ovarian cysts go away on their own without treatment. Your health care provider may want to check your cyst regularly for 2?3 months to see if it changes. If you are in menopause, it is especially important to have your cyst monitored closely because menopausal women have a higher rate of ovarian cancer. When treatment is needed, it may include: ? Medicines to help relieve pain. ? A procedure to drain the cyst (aspiration). ? Surgery to remove the whole cyst. ? Hormone treatment or control pills. These methods are sometimes used to help dissolve a cyst. Follow these instructions at home: ? Take wosg-prj-siajpyb and prescription medicines only as told by your health care provider. ? Do not drive or use heavy machinery while taking prescription pain medicine. ? Get regular pelvic exams and Pap tests as often as told by your health care provider. ? Return to your normal activities as told by your health care provider. Ask your health care provider what activities are safe for you. ? Do not use any products that contain nicotine or tobacco, such as cigarettes and e-cigarettes. Ifyou need help quitting, ask your health care provider. ? Keep all follow-up visits as told by your health care provider. This is important. Contact a health care provider if: ? Your periods are late, irregular, or painful, or they stop. ? You have pelvic pain that does not go away. ? You have pressure on your bladder or trouble emptying your bladder completely. ? You have pain during sex. ? You have any of the following in your abdomen: ? A feeling of fullness. ? Pressure. ? Discomfort. ? Pain that does not go away. ? Swelling. ? You feel generally ill. ? You become constipated. ? You lose your appetite. ? You develop severe acne. ? You start to have more body hair and facial hair. ? You are gaining weight or losing weight without changing your exercise and eating habits. ? You think you may be . Get help right away if: ? You have abdominal pain that is severe or gets worse. ? You cannot eat or drink without vomiting. ? You suddenly develop a fever. ? Your menstrual period is much (more content not included)...[facility] 01-28-2020 NoteOphthalmology Basics of Medication Management UNDERSTAND YOUR MEDICATIONS ? Read all of the labels and inserts that come with your medications. Review the information on this form often. ? Know what potential side effects to look for (for each medication). ? Know what each of your medications look like (by color, shape, size, stamp). If you are getting confused and having a hard time telling them apart, talk with your caregiver or pharmacist. They may be able to change the medication or help you to identify them more easily. ? Check with your pharmacist if you notice a difference in the size or color of your medication. ? Get all of your medications at one pharmacy. The pharmacist will have all of your information andunderstand possible drug interactions. ? Ask your caregiver questions about your prescriptions and any jkbq-qjb-jetobpe medications, vitamins, herbal or dietary supplements that you take. TAKE YOUR MEDICATION SAFELY ? Take medications only as prescribed. ? Talk with your caregiver or pharmacist if some of your pills look the same and it is difficult totell them apart. They can help you to recognize different medications. ? Never double up on your medication. ? Never take anyone else's medication or share your medications. ? Do not stop taking your medication(s) unless you have discussed it with your caregiver. ? Do not split, mash, or chew medications unless your caregiver tells you to do so. Tell your caregiver if you have trouble swallowing your medication(s). ? For liquid medications, make sure you use the dosing container provided to you. ? You may need to avoid alcohol or certain foods or liquids with one or more of your medications. Make sure you remember how to take each medication with some of the tools below. ORGANIZE YOUR MEDICATIONS ? Use a tool, such as a weekly pill box (available at your local pharmacy), written chart from yourcaregiver, notebook, binder, or your own calendar to organize your daily medications. Please note: if you are having trouble telling your different medications apart, keep them in the original bottles. ? Set cues or reminders for taking your medications. Use watch alarms, mobile device/phone calendaralarms, or sticky notes. ? More advanced medication management systems are also available. These offer weekly or monthly options complete with storage, alarms, and visual and audio prompts. ? Your system should help you to keep track of the: ? Name of medication and dose. ? Day. ? Time. ? Pill to take (by color, shape, size, or name/imprint). ? How to take it (with or without certain foods, on an empty stomach, with fluids etc.). ? Review your medication schedule with a family member or friend to help you. Other household members should understand your medications. ? If you are taking medications on an as needed basis such as those for nausea or pain, write down the name, dose, and time you took the medication so that you remember what you have taken. PLAN AHEAD FOR REFILLS AND TRAVEL ? Take your pill box, medications, and calendar system with you when you travel. ? Plan ahead for refills as to not run out of your medication(s). ? Always carry an updated list of your medications with you. If there is an emergency, a respondentcan quickly see what medications you are taking. STORE AND DISCARD YOUR MEDICATIONS SAFELY ? Store medications in a cool, dry area away from light. (The bathroom is not a good place for storage because of heat and humidity.) ? Store your medications away from chemicals, pet medications, or other family member's medications. ? Keep medications out of children's reach, away from counters and bedside tables. Store them up high in cabinets or shelves. ? Check expiration dates regularly. ? Learn about the best way to dispose of each medication you take. Find out if your local [employer] program has a Medicine Take Back program for safe disposal. If not, some medications maybe mixed with inedible substances and thrown away in the trash. Certain medications are to be flushed down the toilet. REMEMBER: ? Tell your caregiver if you experience side effects, new symptoms, or have other concerns. There may be dosing changes or alternative medications that would be better for you. ? Review your medications regularly with your caregiver. Check to see if you need to continue to take each medication, and discuss how well they are working. Medicines, diet, medical conditions, weight changes, and other habits can all affect how medicines work. PEDIATRIC CONSIDERATIONS If you are taking care of an infant or child who needs multiple medications, follow the tips above to organize a medication schedule and safely give and store medications. ?? ? Use positive reinforcement (singing, cuddling, reward) for your child to help him or her take necessary medications. ? Use only syringes, droppers, dosing spoons, or dosing cups provided by your caregiver or pharm (more content not included)...[facility] Evaluation note* Diagnosis 35 weeks gestation of - Primary state, incidental Ultrasound recheck of pyelectasis, antepartum Other known or suspected abnormality, not elsewhere classified, affecting management of mother, antepartum condition or complication Tobacco use disorder affecting , antepartum Placenta previa without hemorrhage, antepartum Oligohydramnios, antepartum Diabetes mellitus during , antepartum Abnormality in heart rate/rhythm, antepartum condition or complication documented in this encounter [facility] Work Phone: evaluation noteNo assessment information available [facility] Work Phone: Evaluation note* Diagnosis Acute non-recurrent maxillary sinusitis- Primary [facility] Diagnosis Low back pain, unspecified back pain laterality, unspecified chronicity, unspecified whether sciatica present- Primary [facility] in this [facility] Narr[facility] - Reported* Type Description Date Medical History Depression Medical History Bipolar disorder Medical History Hypertension Medical History Hypothyroidism Surgical History cholecystectomy Surgical History wisdom teeth extract Surgical History lipoma removed Surgical History left knee scope x 2 Surgical History hemorrhoidectomy Hospitalization History see above surgical histo ry [facility] Other Hospital Discharge instructions* Attachments The following attachments cannot be sent through Care Everywhere. * Section: Post-op (Canadian) * Preeclampsia: : General Info (Canadian) * Depression: (Canadian) documented in this encounterBON [facility] Work Phone: Instructions* Attachments The following attachments cannot be sent through Care Everywhere. * Sinusitis in adults (Canadian) documented in this encounterProZ[facility] SystemInstructionsNot on file documented in this encounterProZanesville City Hospital SystemInstructionsNot on file documented in this encounterProZanesville [facility] System Summary Purpose Family History Relationship Condition Age at Onset Recorded Date/T fernanda grandparent Malignant neoplasm Unknown family member Malignant neoplasm Unknown Advance Directives Latest Code Status on File Code Status Date Activated Date Inactivated Comments Full Code 07/15/2022 3:46 PM Latest Code Status on File Code Status Date Activated Date Inactivated Comments Full Code 07/20/2022 3:15 PM Full Code 07/15/2022 3:46 PM 07/15/2022 9:11 PM Advance Directive Response Recorded Date/ Time Advance Directives No July 26 4:06am Latest Code Status on File Code Status Date Activated Date Inactivated Comments Full Code 05/16/2022 12:35 PM 05/16/2022 2:52 PM Code Status History Code Status Date Activated Date Inactivated Comments Full Code 06/02/2018 10:00 AM 06/03/2018 2:34 PM Full Code 05/29/2018 9:45 PM 06/01/2018 3:34 PM Full Code 05/28/2018 9:38 AM 05/29/2018 9:44 PM Chief Complaint and Reason for Visit Chief Complaint R93.89 Chief Complaint R93.89 r93.89 Additional Source Comments INFORMATION SOURCE (unrecogn ized section and content) DATE CREATED AUTHOR 02/27/2018 [facility] DATE CREATED AUTHOR AUTHOR'S ORGANIZ ATION 09/15/2020 [facility] DATE CREATED AUTHOR AUTHOR'S ORGANIZ ATION 10/17/2020 [facility] DATE CREATED AUTHOR AUTHOR'S ORGANIZ ATION 07/28/2022 [facility] DATE CREATED AUTHOR AUTHOR'S ORGANIZ ATION 08/25/2022 [facility] DATE CREATED AUTHOR AUTHOR'S ORGANIZ ATION 01/01/2023 [facility] DATE CREATED AUTHOR AUTHOR'S ORGANIZ ATION 05/06/2023 [facility] DATE CREATED AUTHOR AUTHOR'S ORGANIZ ATION 05/19/2023 [facility] DATE CREATED AUTHOR AUTHOR'S ORGANIZ ATION 05/24/2023 [facility] dical Specialists EPIC REASON FOR VISIT (unrecogniz ed section and content) Specialty Diagnoses / Procedures Referred By Ismael landis Referred To Contact Diagnoses 36 weeks gestation of Lexi Kimbrough DO [address] [place] [address] [facility] [address] [place] [address] Referral ID Status Reason Start Date Expiration Date Visits Re quested Visits Authorized [id number] 1 Reason Comments Nasal Congestion Dizziness Reason Onset Date Comments Sleep Lab 05/29/2023 Reason Comments Med Refill Scheduled Active and Recently Administ ered Medications (unrecognized section and content) Medication Order 07/13/2022 07/14/2022 07/15/2022 acetaminophen (TYLENOL) tablet 1,000 mg 1,000 mg, Oral, ONCE, 1 dose, On 07/15/22 at 1615, Maximum dose of acetaminophen is 4000 mg from all sources in 24 hours. 1559 (Held by provid er - Provider: Diamante Estrada MD - Reason: Other)1615 (Automatically Held - Provider: Diamante Estrada MD) aluminum & magnesium hydroxide-simethicone (MAALOX) 200-200-20 MG/5ML suspension 30 mL 30 mL, Oral, ONCE, 1 dose, On 07/15/22 at 1845 1845 (Due) diphenhydrAMINE (BENADRYL) injection 25 mg (COMPLETED) 25 mg, IntraVENous, ONCE, 1 dose, On 07/15/22 at 1615, IV Push at rate not to exceed 25 mg/min. 1836 (Given - Provid er: Ellen Dunn RN) lidocaine viscous hcl (XYLOCAINE) 2 % solution 15 mL 15 mL, Mouth/Throat, ONCE, 1 dose, On 07/15/22 at 1845 1845 (Due) metoclopramide (REGLAN) injection 10 mg (COMPLETED) 10 mg, IntraVENous, ONCE, 1 dose, On 07/15/22 at 1615, IV Push: Max 10 mg over 1-2 minutes. 1836 (Given - Provid er: Ellen Dunn RN) PRN Medication Order 07/13/2022 07/14/2022 07/15/2022 iopamidol (ISOVUE-370) 76 % injection 75 mL (COMPLETED) 75 mL, IntraVENous, IMG ONCE PRN, 1 dose, Starting on 07/15/22 at 1726, Until 07/15/22 at 1727, Other 1727 (Given - Provid er: Ricky Desai) ondansetron (ZOFRAN) injection 4 mg(Linked Group 1) 4 mg, IntraVENous, EVERY 6 HOURS PRN, Starting on 07/15/22 at 1545, Until Discontinued, Nausea, Vomiting, Administer if oral route cannot be used. ondansetron (ZOFRAN-ODT) disintegrating tablet 4 mg(Linked Group 1) 4 mg, Oral, EVERY 8 HOURS PRN, Starting on 07/15/22 at 1545, Until Discontinued, Nausea, Vomiting Linked Groups Order Group 1: ondansetron (ZOFRAN-ODT) disintegrating tablet 4 mgJump to med 4 mg, Oral, EVERY 8 HOURS PRN, Starting on 07/15/22 at 1545, Until Discontinued, Nausea, Vomiting Or ondansetron (ZOFRAN) injection 4 mgJump to med 4 mg, IntraVENous, EVERY 6 HOURS PRN, Starting on 07/15/22 at 1545, Until Discontinued, Nausea, Vomiting
Administer if oral route cannot be used.
Scheduled Medication Order 07/20/2022 07/21/2022 07/22/2022 acetaminophen (TYLENOL) tablet 1,000 mg 1,000 mg, Oral, EVERY 6 HOURS, First dose on [place] 07/20/22 at 2200, Until Discontinued, Give in addition to any other pain medication ordered at same time for any pain indication. Maximum dose of acetaminophen is 4000mg from all sources in 24 hours. Alternate ibuprofen and acetaminophen every 4 hours., 0004 (Given - Provider: Elisa Mckeon RN)0645 (Given - Provider: Elisa Mckeon RN)1301 (Given - Provider: Lakesha Loera RN)1854 (Given - Provider: Lakesha Loera RN) 0126 (Given - Provider: Jennifer Porras)0831 (Given - Provider: Lakesha Loera RN)1000 (Due)1600 (Due)2200 (Due) acetaminophen (TYLENOL) tablet 975 mg (COMPLETED) 975 mg, Oral, ONCE, 1 dose, On [place] 07/20/22 at 1545, Administer with sips of water., Labor and Delivery (Signed and Held) 1558 (Given - Provider: Anel Easley RN) azithromycin (ZITHROMAX) 500 mg in sodium chloride 0.9% 250 mL IVPB (COMPLETED) 500 mg, IntraVENous, ONCE, 1 dose, On [place] 07/20/22 at 1545, Antimicrobial Indications: Surgical Prophylaxis 1748 (Given - Provider: Stephany Paige APRN - GROUND LAYER) citalopram (CELEXA) tablet 20 mg 20 mg, Oral, DAILY, First dose (after last modification) on Sun07/21/22 at 0900, Until Discontinued 0811 (Given - Provider: Lakesha Loera RN) 0830 (Given - Provider: Lakesha Loera RN) citric acid-sodium citrate (BICITRA) solution 30 mL (COMPLETED) 30 mL, Oral, ONCE, 1 dose, On [place] 07/20/22 at 1545, Give immediately prior to transfer to surgery., Labor and Delivery (Signed and Held) 1602 (Given - Provider: Anel Easley RN) clindamycin (CLEOCIN) 900 mg in dextrose 5 % 50 mL IVPB (COMPLETED) 900 mg, IntraVENous, ONCE, 1 dose, On [place] 07/20/22 at 1545, Antimicrobial Indications: Surgical Prophylaxis 1620 (Given by Other Clinician - Provider: Anel Easley RN - Comment: Fermin Rhodes RN)1718 (Stopped - Provider: Dasha Rhodes RN) docusate sodium (COLACE) capsule 100 mg 100 mg, Oral, 2 TIMES DAILY, First dose on [place] 07/20/22 at 2100, Until Discontinued, Do not crush or break., 1999 (Not Given - Provider: Namita Ge RN - Reason: Nausea) 0812 (Given - Provider: Lakesha Loera RN)222 (Given - Provider: Jennifer Porras) 08 (Given - Provider: Lakesha Loera RN)2100 (Due) enoxaparin (LOVENOX) injection 40 mg 40 mg, SubCUTAneous, 2 TIMES DAILY, First dose on Sun07/21/22 at 0900, Until Discontinued, Indication of Use: Prophylaxis-DVT/PE, Administer by deep subCUTAneous injection with pt lying down. Alternate injection sites on abdominal wall. Do not rub site after injection. Check with provider prior to any invasive procedure., 08 (Given - Provider: Lakesha Loera RN)222 (Given - Provider: Jennifer Porras) 08 (Given - Provider: Lakesha Loera RN)2099 (Due) famotidine (PEPCID) 20 mg in sodium chloride (PF) 0.9 % 10 mL injection (COMPLETED) 20 mg, IntraVENous, ONCE, 1 dose, On [place] 07/20/22 at 1545, Give 60 minutes before surgery., Labor and Delivery (Signed and Held) 1601 (Given - Provider: Anel Easley RN) gentamicin (GARAMYCIN) 500 mg in sodium chloride 0.9 % 250 mL IVPB (COMPLETED) 500 mg, IntraVENous, at 250 mL/hr, Administer over 60 Minutes, ONCE, On [place] 07/20/22 at 1545, For 1 dose, STAT 1720 (New Bag - Provider: Dasha Rhodes, VIKTORIA)1820 (Stopped - Provider: Dasha Rhodes RN) ibuprofen (ADVIL;MOTRIN) tablet 600 mg 600 mg, Oral, EVERY 6 HOURS, First dose on Sun07/21/22 at 1400, Until Discontinued, Do not crush or chew., 1722 (Given - Provider: Lakesha Loera RN) 0125 (Given - Provider: Jennifer Porras)0200 (Due)0830 (Given - Provider: Lakesha Loera RN)1400 (Due)1999 (Due) insulin lispro (HUMALOG) injection vial 0-12 Units 0-12 Units, SubCUTAneous, 4 TIMES DAILY BEFORE MEALS & NIGHTLY, First dose on Sun07/20/22 at 2100, Until Discontinued, Intrapartum Glycemic Management of women with Type 1 and Type 2 DM Corrective Algorithm Glucose: Dose: If <120 No Insulin 121 to 140 1 Units 141 to 160 2 Units 161 to 180 3 Units 181 to 249 4 Units 250-299 6 Units 300-349 8 Units 350-400 10 Units Above 400 12 Units, 2225 (Not Given - Provider: Elisa Mckeon RN - Reason: Order parameters not met - Comment: bs 116) 0818 (Given - Provider: Lakesha Loera RN - Comment: BS [phone] (Not Given - Provider: Lakesha Loera RN - Reason: Order parameters not met - Comment: BS [phone] (Not Given - Provider: Lakesha Loera RN - Reason: Order parameters not met - Comment: BS [phone] (Not Given - Provider: Jennifer Porras - Reason: Contraindicated - Comment: bs 108) 0833 (Not Given - Provider: Lakesha Loera RN - Reason: Order parameters not met - Comment: [phone] (Not Given - Provider: Lakesha Loera RN - Reason: Order parameters not met)1700 (Due)2100 (Due) ketorolac (TORADOL) injection 30 mg (COMPLETED) 30 mg, IntraVENous, EVERY 6 HOURS, 3 doses, First dose on Sun07/20/22 at 2000, Last dose on Sun07/21/22 at 0800, Do not administer for more than 5 days., 2222 (Given - Provider: Elisa Mckeon RN) 0517 (Given - Provider: Elisa Mckeon RN)1125 (Given - Provider: Lakesha Loera RN) labetalol (NORMODYNE) tablet 200 mg (CANCELED) 200 mg, Oral, 2 times daily, First dose on [place] 07/20/22 at 2100, Until Discontinued 2131 (Given - Provider: Namita Ge, VIKTORIA) labetalol (NORMODYNE) tablet 400 mg 400 mg, Oral, EVERY 8 HOURS SCHEDULED (3 times per day), First dose (after last modification) on Sun07/21/22 at 0600, Until Discontinued 0646 (Given - Provider: Elisa Mckeon RN)1420 (Given - Provider: Lakesha Loera RN)2220 (Given - Provider: Jennifer Porras) 0639 (Given - Provider: Jennifer Porras)1400 (Due)2200 (Due) levonorgestrel (MIRENA) IUD 52 mg 1 each (CANCELED) 1 each, IntraUTERine, ONCE, 1 dose, On [place] 07/20/22 at 1600 1835 (Given by Other - Provider: Dasha Rhodes, VIKTORIA) levothyroxine (SYNTHROID) tablet 50 mcg 50 mcg, Oral, DAILY, First dose (after last modification) on Sun07/21/22 at 0700, Until Discontinued, Tube feeding (TF) interaction, obtain physician order to manage, recommend holding TF for 30 minutes before and after dose., 0812 (Given - Provider: Lakesha Loera RN) 0830 (Given - Provider: Lakesha Loera RN) metroNIDAZOLE (FLAGYL) tablet 500 mg 500 mg, Oral, EVERY 8 HOURS SCHEDULED (3 times per day), 6 doses, First dose on [place] 07/20/22 at 2200, Last dose on Sun07/22/22 at 1400, Antimicrobial Indications: Surgical Prophylaxis, 0005 (Given - Provider: Elisa Mckeon RN)0812 (Given - Provider: Lakesha Loera, VIKTORIA)1420 (Given - Provider: Lakesha Loera RN)2221 (Given - Provider: Jennifer Porras) 0639 (Given - Provider: Jennifer Porras)1400 (Due) vitamin plus iron 29-1 MG tablet 1 tablet 1 tablet, Oral, DAILY, First dose on [place] 07/20/22 at 2000, Until Discontinued, Begin when normal bowel activity resumes., 1999 (Not Given - Provider: Namita Ge RN - Reason: Nausea) 0811 (Given - Provider: Lakesha Loera RN) 0831 (Given - Provider: Lakesha Loera, VIKTORIA) rho(D) immune globulin (HYPERRHO S/D) injection 300 mcg 300 mcg, IntraMUSCular, ONCE, 1 dose, On [place] 07/20/22 at 2000, 0900 (Not Given - Provider: Lakesha Loera RN - Reason: Order parameters not met) sodium chloride flush 0.9 % injection 5-40 mL 5-40 mL, IntraVENous, EVERY 12 HOURS SCHEDULED (2 times per day), First dose on [place] 07/20/22 at 2100, Until Discontinued, For Line Patency: Peripheral IV = 5 mL; Midline or Central Line = 10 mL/lumen. If following IV push medication, administer flush at same rate as the IV push. Flush volume is determined by type of infusion therapy being given. For non-viscous solutions use: Peripheral IV = 5 mL Midline or Central Line = 10 mL/lumen For viscous solutions (i.e. blood components, parenteral nutrition, contrast media, or after obtaining blood sample) use: Peripheral IV = 10 mL Midline or Central Line = 20 mL/lumen, 2040 (Not Given - Provider: Namita Ge RN - Reason: IV Fluid Infusing) 1125 (Given - Provider: Lakesha Loera, VIKTORIA)2221 (Given - Provider: Jennifer Porras) 0836 (Not Given - Provider: Lakesha Loera RN - Reason: Loss of IV access)2100 (Due) tranexamic acid-NaCl IVPB premix 1,000 mg 1,000 mg, IntraVENous, at 400 mL/hr, Administer over 15 Minutes, ONCE, On [place] 07/20/22 at 1530, For 1 dose 1956 (Canceled Entry - Provider: Dasha Rhodes RN - Comment: given in OR by anesthesia) Continuous Medication Order 07/20/2022 07/21/2022 07/22/2022 0.9 % sodium chloride infusion (CANCELED) IntraVENous, at 125 mL/hr, CONTINUOUS, Starting on [place] 07/20/22 at 1545, Labor and Delivery (Signed and Held) 1557 (New Bag - Provider: Anel Easley RN)1731 (NoRateChange - Provider: Stephany Paige APRN - GROUND LAYER)1829 (Paused - Provider: Agata Pollard RN - Comment: Switch to gravity)1830 (New Bag - Provider: Agata Pollard, VIKTORIA)1927 (New Bag - Provider: Agata Pollard RN) PRN Medication Order 07/20/2022 07/21/2022 07/22/2022 0.9 % sodium chloride infusion IntraVENous, at 5-250 mL/hr, PRN, if patient receiving piggyback infusions and maintenance fluids are not ordered OR KVO fluids to protect IV site / prevent frequent line interruptions/ long duration, Starting on [place] 07/20/22 at 1933, For piggyback infusion, administer at same rate as piggyback for a total of 25 mL. Enter 25 mL into dose field and piggyback rate into rate field of order. If piggyback is infusing at a rate less than 100 mL/hr, enter 25 mL into dose field and 100 mL/hr into rate field of order. For KVO fluids, enter rate of 20 mL/hr or less into rate field of order., bisacodyl (DULCOLAX) suppository 10 mg 10 mg, Rectal, DAILY PRN, Starting on [place] 07/20/22 at 1933, Until Discontinued, Constipation, diphenhydrAMINE (BENADRYL) injection 25 mg 25 mg, IntraVENous, EVERY 6 HOURS PRN, Starting on [place] 07/20/22 at 1933, Until Discontinued, Itching, Hives, Lanolin Hydrous OINT Topical, EVERY 1 HOUR PRN, Dry Skin, nipple discomfort, Starting on [place] 07/20/22 at 1933, magnesium hydroxide (MILK OF MAGNESIA) 400 MG/5ML suspension 30 mL 30 mL, Oral, DAILY PRN, Starting on [place] 07/20/22 at 1933, Until Discontinued, Constipation, naloxone (NARCAN) injection 0.4 mg 0.4 mg, IntraVENous, PRN, Starting on [place] 07/20/22 at 1933, Until Discontinued, Opioid Reversal, ondansetron (ZOFRAN) injection 4 mg 4 mg, IntraVENous, EVERY 6 HOURS PRN, Starting on [place] 07/20/22 at 1933, Until Discontinued, Nausea, 0005 (Given - Provider: Elisa Mckeon RN) oxyCODONE (ROXICODONE) immediate release tablet 10 mg(Linked Group 1) 10 mg, Oral, EVERY 4 HOURS PRN, Starting on [place] 07/20/22 at 1933, Until Discontinued, Pain Severe (7-10), 1806 (See Alternative - Provider: Lakesha Loera RN)2221 (See Alternative - Provider: Jennifer Porras) 0225 (Given - Provider: Jennifer Porras)0639 (Given - Provider: Jennifer Porras)1135 (Given - Provider: Lakesha Loera, VIKTORIA) oxyCODONE (ROXICODONE) immediate release tablet 5 mg(Linked Group 1) 5 mg, Oral, EVERY 4 HOURS PRN, Starting on [place] 07/20/22 at 1933, Until Discontinued, Pain Moderate (4-6), 1806 (Given - Provider: Lakesha Loera, VIKTORIA)2221 (Given - Provider: Jennifer Porras) 0225 (See Alternative - Provider: Jennifer Porras)0639 (See Alternative - Provider: Jennifer Porras)1135 (See Alternative - Provider: Lakesha Loera RN) oxytocin (PITOCIN) 10 unit bolus from the bag(Linked Group 2) 166.7 mL (rounded from 166.6667 mL = 10 Units), IntraVENous, PRN, 1 dose, Starting on [place] 07/20/22 at 1515, Until Discontinued, Bleeding, Post- use ONLY after delivery of baby/ excessive bleeding/ uterine atony. Bolus for bag to infuse at 909 ml/hour for 11 minutes (10 units in 167ml). oxytocin (PITOCIN) 30 units in 500 mL infusion(Linked Group 2) 87.3 ivan-units/min (87.3 mL/hr), IntraVENous, CONTINUOUS PRN, Starting on [place] 07/20/22 at 1515, Until 07/22/22 at 1514, Bleeding, Post- use ONLY after delivery of baby/ excessive bleeding/ uterine atony. Following Bolus from bag administration, reduce the rate to 87.3 mL/hr and administer remaining 20 units over 229 minutes to complete the infusion of 30 units in 500 mL. Do NOT administer more than 1 bag of pitocin without a new order from the physician. 182 (New Bag - Provider: Agata Pollard RN)1839 (Rate/Dose Change - Provider: Agata Pollard RN) polyethylene glycol (GLYCOLAX) packet 17 g 17 g, Oral, DAILY PRN, Starting on [place] 07/20/22 at 1933, Until Discontinued, Constipation, prochlorperazine (COMPAZINE) injection 10 mg 10 mg, IntraVENous, EVERY 6 HOURS PRN, Starting on [place] 07/20/22 at 1955, Until Discontinued, Nausea, If administering IV push, administer at a maximum rate of 5 mg/minute. 2009 (Given - Provider: Namita Ge RN) simethicone (MYLICON) chewable tablet 80 mg 80 mg, Oral, EVERY 6 HOURS PRN, Starting on [place] 07/20/22 at 1933, Until Discontinued, Cramping, Flatulence, sodium chloride flush 0.9 % injection 10 mL (CANCELED) 10 mL, IntraVENous, PRN, Starting on [place] 07/20/22 at 1515, Until [place] 07/20/22 at 1933, Line Care, After every IV line use, For Line Patency: Peripheral IV = 5 mL; Midline or Central Line = 10 mL/lumen. If following IV push medication, administer flush at same rate as the IV push. Flush volume is determined by type of infusion therapy being given. For non-viscous solutions use: Peripheral IV = 5 mL Midline or Central Line = 10 mL/lumen For viscous solutions (i.e. blood components, parenteral nutrition, contrast media, or after obtaining blood sample) use: Peripheral IV = 10 mL Midline or Central Line = 20 mL/lumen, Labor and Delivery (Signed and Held) 1550 (Given - Provider: Anel Easley RN) sodium chloride flush 0.9 % injection 5-40 mL 5-40 mL, IntraVENous, PRN, Starting on [place] 07/20/22 at 1933, Until Discontinued, Line Care, After every IV line use, For Line Patency: Peripheral IV = 5 mL; Midline or Central Line = 10 mL/lumen. If following IV push medication, administer flush at same rate as the IV push. Flush volume is determined by type of infusion therapy being given. For non-viscous solutions use: Peripheral IV = 5 mL Midline or Central Line = 10 mL/lumen For viscous solutions (i.e. blood components, parenteral nutrition, contrast media, or after obtaining blood sample) use: Peripheral IV = 10 mL Midline or Central Line = 20 mL/lumen, Linked Groups Order Group 1: oxyCODONE (ROXICODONE) immediate release tablet 5 mgJump to med 5 mg, Oral, EVERY 4 HOURS PRN, Starting on [place] 07/20/22 at 1933, Until Discontinued, Pain Moderate (4-6), Or oxyCODONE (ROXICODONE) immediate release tablet 10 mgJump to med 10 mg, Oral, EVERY 4 HOURS PRN, Starting on [place] 07/20/22 at 1933, Until Discontinued, Pain Severe (7-10), Group 2: oxytocin (PITOCIN) 30 units in 500 mL infusionJump to med 87.3 ivan-units/min (87.3 mL/hr), IntraVENous, CONTINUOUS PRN, Starting on [place] 07/20/22 at 1515, Until 07/22/22 at 1514, Bleeding
Post- use ONLY after delivery of baby/ excessive bleeding/ uterine atony. Following Bolus from bag administration, reduce the rate to 87.3 mL/hr and administer remaining 20 units over 229 minutes to complete the infusion of 30 units in 500 mL. Do NOT administer more than 1 bag of pitocin without a new order from the physician.
And oxytocin (PITOCIN) 10 unit bolus from the bagJump to med 166.7 mL (rounded from 166.6667 mL = 10 Units), IntraVENous, PRN, 1 dose, Starting on [place] 07/20/22 at 1515, Until Discontinued, Bleeding
Post- use ONLY after delivery of baby/ excessive bleeding/ uterine atony. Bolus for bag to infuse at 909 ml/hour for 11 minutes (10 units in 167ml).
Ordered Prescriptions (unrec ognized section and content) Prescription Sig Dispensed Refills Start Date End Da te metroNIDAZOLE (FLAGYL) 500 MG tablet Take 1 tablet by mouth once for 1 dose 1 tablet 0 07/22/2022 07/22/2022 labetalol (NORMODYNE) 100 MG tablet Take 4 tablets by mouth in the morning, at noon, and at bedtime 60 tablet 3 07/22/2022 citalopram (CELEXA) 20 MG tablet Take 1 tablet by mouth daily 30 tablet 1 07/21/2022 oxyCODONE (ROXICODONE) 5 MG immediate release tabletIndications:Pos toperative state Take 1 tablet by mouth every 6 hours as needed for Pain for up to 5 days. Intended supply: 5 days. Take lowest dose possible to manage pain Max Daily Amount: 20 mg 20 tablet 0 07/20/2022 07/25/2022 docusate sodium (COLACE) 100 MG capsule Take 1 capsule by mouth 2 times daily as needed for Constipation 60 capsule 1 07/20/2022 08/19/2022 ibuprofen (ADVIL;MOTRIN) 800 MG tablet Take 1 tablet by mouth every 8 hours as needed for Pain 30 tablet 0 07/20/2022 levothyroxine (SYNTHROID) 50 MCG tablet Take 1 tablet by mouth Daily 30 tablet 3 07/20/2022 Care Teams (unrecognized sec tion and content) Circular Shear Operator Relationship Specialty Start Date End Date Katerin Haynes APRN-SENIOR ORACLE DATABASE DEVELOPER [address] [place] [address] PCP - General Family Medicine 11/23/22 Team Status: Active Member Role Status Dates Aline Villalobos MD Primary Care Provider Active Team Status: Inactive Member Role Status Dates Aline Villalobos MD Primary Care Provider Active Razia Muller , OFFICE COORDINATOR RECEPTIONIST-FINISH PHOTOGRAPHER-C Attending Provider Active Goals (unrecognized section and content) Goals may be documented in a n alternate section FOR RECORDS PERTAINING TO PATIENTS WHO ARE OR HAVE BEEN ENROLLED IN A CHEMICAL DEPENDENCY/SUBSTANCEABUSE PROGRAM, SOME INFORMATION MAY BE OMITTED. This clinical summary was aggregated from multiple sources. Caution should be exercised in using it in the provision of clinical care. This summary normalizes information from multiple sources, and as a consequence, information in this document may materially change the coding, format and clinical context of patient data. In addition, data may be omitted in some cases. CLINICAL DECISIONS SHOULD BE BASED ON THE PRIMARY CLINICAL RECORDS. [facility] provides no warranty or guarantee of the accuracy or completeness of information in this document.
[2023-06-17 11:39] LABS: HCG Quantitative 104 mIU/mL
== END 2023-06-17 10:56 | disposition home or self-care (01) ==
LOC: LAB 10:56
PROVIDERS: PCP Family Medicine; Visit Provider Obstetrics & Gynecology
DX: Z32.01 Encounter for pregnancy test, result positive (principal)
CPT/HCPCS: 36415; 84702

== ENCOUNTER 2023-06-19 10:58 | Outpatient (OUT) | payer BC, MEDICAID, SELFPAY ==
[2023-06-19 12:09] LABS: HCG Quantitative 305 mIU/mL
== END 2023-06-19 10:59 | disposition home or self-care (01) ==
LOC: LAB 10:58
PROVIDERS: PCP Family Medicine; Visit Provider Obstetrics & Gynecology
DX: Z32.01 Encounter for pregnancy test, result positive (principal)
CPT/HCPCS: 36415; 84702

== ENCOUNTER 2023-07-19 12:57 | Outpatient (OUT) | payer BC, MEDICAID, SELFPAY ==
--- NOTE | 2023-07-19 13:00 | US_ITS ---
[address] [address] Patient Name: YANI STEVENS MRN: [id number] date: 1990 Sex: F Assigned Patient Location: [facility] Current Patient Location: [facility] Accession/Order Number: [id number] Exam Date: 07/19/2023 13:00 Report Date: 07/19/2023 13:44 At the request of: NOAH PETERSON Procedure: US OB transvaginal EXAMINATION: US OB transvaginal HISTORY: MISSED MENSES COMPARISON: No relevant comparison available. FINDINGS: Feliz intrauterine gestation Gestational sac: 3.22 cm, 8 weeks 2 days CRL: 1.2 cm, 8 weeks 2 days Yolk sac: 3.6 mm Heart rate: 160 bpm Cervix: Closed 3.6 cm The uterus is normal, anteverted, anteflexed The ovaries are normal. Clinical age: 9 weeks 1 day Clinical SUNSHINE: 02/20/2024 Ultrasound age: 8 weeks 2 days Ultrasound SUNSHINE: 02/26/2024 US/US OB transvaginal IMPRESSION: Viable feliz intrauterine gestation measuring 8 weeks 2 days Electronically authenticated by: ALINE GALICIA Date: 07/19/2023 13:44
== END 2023-07-19 12:58 | disposition home or self-care (01) ==
LOC: NOMS 12:57
PROVIDERS: PCP Family Medicine; Visit Provider Obstetrics & Gynecology
DX: Z34.91 Encounter for supervision of normal pregnancy, unspecified, first trimester (principal); Z3A.08 8 weeks gestation of pregnancy; N92.6 Irregular menstruation, unspecified
CPT/HCPCS: 76817

== ENCOUNTER 2023-07-19 14:13 | Outpatient (OUT) | payer BC, MEDICAID, SELFPAY ==
[2023-07-19 15:02] LABS: Basophils Absolute Auto 0.1 10^3/uL (0.0-0.1); Basophils Percent Auto 0.6 % (0.2-2.0); Eosinophils Absolute Auto 0.3 10^3/uL (0.0-0.7); Eosinophils Percent Auto 2.5 % (0.9-7.0); Hematocrit 36.3 % (36.0-48.0); Immature Granulocytes Abs Auto 0.04 10^3/uL (0.00-0.03); Immature Granulocytes Pct Auto 0.4 % (0.0-0.5); Lymphocytes Absolute Auto 2.2 10^3/uL (1.2-3.8); Lymphocytes Percent Auto 21.8 % (20.5-60.0); Mean Corpuscular HGB Conc 33.1 g/dL (29.9-35.2); Mean Corpuscular Hemoglobin 27.8 pg (26.7-34.0); Mean Corpuscular Volume 84.2 fL (81.0-99.0); Mean Platelet Volume 10.6 fL (9.5-13.5); Monocytes Absolute Auto 0.7 10^3/uL (0.3-0.8); Monocytes Percent Auto 6.6 % (1.7-12.0); Neutrophils Percent Auto 68.1 % (43.0-75.0); Platelet Count 242 10^3/uL (150-450); Red Blood Count 4.31 10^6/uL (4.20-5.40); Red Cell Distribution Width 13.2 % (11.0-15.0); White Blood Count 10.3 10^3/uL (4.0-11.0)
[2023-07-19 15:14] LABS: Estimated Average Glucose 100 mg/dL; Glycohemoglobin A1C 5.1 % (4.5-6.2)
[2023-07-20 04:12] LABS: Rubella Antibodies, IgG 1.45 index (Immune >0.99)
[2023-07-20 06:10] LABS: HBsAg Screen Negative (Negative); HCV Ab Non Reactive (Non Reactive); HIV Ab/p24 Ag Screen Non Reactive (Non Reactive)
[2023-07-20 11:10] LABS: Rapid Plasma Reagin, Quant Non Reactive titer (NonRea<1:1)
== END 2023-07-19 14:14 | disposition home or self-care (01) ==
LOC: LAB 14:15
PROVIDERS: PCP Family Medicine; Visit Provider Obstetrics & Gynecology
DX: Z34.91 Encounter for supervision of normal pregnancy, unspecified, first trimester (principal); Z3A.08 8 weeks gestation of pregnancy; N92.6 Irregular menstruation, unspecified
CPT/HCPCS: 36415; 76817; 83036; 85025; 86592; 86762; 86803; 86850; 86900; 86901; 87086; 87340; 87389

== ENCOUNTER 2023-07-31 08:48 | Outpatient (OUT) | payer BC, MEDICAID, SELFPAY ==
[2023-07-31 09:11] LABS: BOX Test Sent Out Y
== END 2023-07-31 08:49 | disposition home or self-care (01) ==
LOC: LAB 08:49
PROVIDERS: PCP Family Medicine; Visit Provider Obstetrics & Gynecology
DX: Z34.80 Encounter for supervision of other normal pregnancy, unspecified trimester (principal)
CPT/HCPCS: 36415

== ENCOUNTER 2023-08-14 15:45 | Outpatient (OUT) | payer BC, MEDICAID, SELFPAY ==
[2023-08-14 17:09] LABS: Free T4 0.83 ng/dL (0.76-1.46)
== END 2023-08-14 15:46 | disposition home or self-care (01) ==
LOC: LAB 15:46
PROVIDERS: PCP Family Medicine; Visit Provider Obstetrics & Gynecology
DX: Z34.92 Encounter for supervision of normal pregnancy, unspecified, second trimester (principal)
CPT/HCPCS: 36415; 84439; 84443

== ENCOUNTER 2023-09-11 | Outpatient (REF) | payer BC, MEDICAID, SELFPAY | END 2023-09-11 00:01 | disposition home or self-care (01) | LOC: LAB | PROVIDERS: PCP Family Medicine; Visit Provider Obstetrics & Gynecology | DX: Z01.419 Encounter for gynecological examination (general) (routine) without abnormal findings (principal) | CPT/HCPCS: 87624; G0145 ==

== ENCOUNTER 2023-09-11 07:54 | Outpatient (OUT) | payer BC, MEDICAID, SELFPAY ==
[2023-09-11 09:13] LABS: Basophils Percent Auto 0.4 % (0.2-2.0); Eosinophils Absolute Auto 0.2 10^3/uL (0.0-0.7); Eosinophils Percent Auto 2.3 % (0.9-7.0); Hematocrit 34.9 % (36.0-48.0); Hemoglobin 11.7 g/dL (12.0-16.0); Immature Granulocytes Abs Auto 0.04 10^3/uL (0.00-0.03); Immature Granulocytes Pct Auto 0.5 % (0.0-0.5); Lymphocytes Absolute Auto 1.6 10^3/uL (1.2-3.8); Mean Corpuscular HGB Conc 33.5 g/dL (29.9-35.2); Mean Corpuscular Hemoglobin 28.4 pg (26.7-34.0); Mean Corpuscular Volume 84.7 fL (81.0-99.0); Mean Platelet Volume 9.8 fL (9.5-13.5); Monocytes Absolute Auto 0.5 10^3/uL (0.3-0.8); Monocytes Percent Auto 5.5 % (1.7-12.0); Neutrophils Absolute Auto 6.1 10^3/uL (1.4-6.5); Neutrophils Percent Auto 72.3 % (43.0-75.0); Platelet Count 163 10^3/uL (150-450); Red Blood Count 4.12 10^6/uL (4.20-5.40); Red Cell Distribution Width 12.9 % (11.0-15.0); White Blood Count 8.4 10^3/uL (4.0-11.0)
[2023-09-11 09:31] LABS: Glucose 1 Hour 200 mg/dL (<130)
== END 2023-09-11 07:55 | disposition home or self-care (01) ==
LOC: LAB 07:55
PROVIDERS: PCP Family Medicine; Visit Provider Obstetrics & Gynecology
DX: Z13.1 Encounter for screening for diabetes mellitus (principal)
CPT/HCPCS: 36415; 82950; 85025

== ENCOUNTER 2023-11-14 08:30 | Outpatient (OUT) | payer BC, MEDICAID, SELFPAY ==
--- NOTE | 2023-11-14 08:35 | US_ITS ---
[address] [address] Patient Name: YANI STEVENS MRN: [id number] date: 1990 Sex: F Assigned Patient Location: [facility] Current Patient Location: [facility] Accession/Order Number: [id number] Exam Date: 11/14/2023 08:35 Report Date: 11/14/2023 09:12 At the request of: CHARMAINE HAIRSTON Procedure: US OB growth EXAMINATION: US OB growth HISTORY: ACQUIRED HYPOTHYROIDSM COMPARISON: No relevant comparison available. FINDINGS: Heart Rate: 150 bpm Amniotic Fluid Volume: 13.7 cm, largest fluid pocket 6.1 cm Number: 1 Position: Cephalic presentation, longitudinal lie BIOMETRY: BPD: 6.53 cm; 26 weeks 3 days; 81.70 % HC: 23.98 cm; 26 weeks 0 days; 61.30 % AC: 21.62 cm; 26 weeks 1 day; 71.20 % FL: 4.59 cm; 25 weeks 2 days; 38.60 % EFW: 903.11 g; 69.40 %, 1 lb. 14 oz. FL/AC: 21.23 FL/BPD: 70.29 HC/AC: 1.11 GESTATIONAL AGE: Age by EDC: 25 weeks 1 day SUNSHINE by EDC: 2024-02-26 Age by US: 26 weeks 0 days SUNSHINE by US: 2024-02-20 US/US OB growth IMPRESSION: Normal interval growth Electronically authenticated by: ALINE GALICIA Date: 11/14/2023 09:12
--- OUTSIDE RECORDS SUMMARY | 2023-11-14 08:50 | XMS_ITS | CCD ---
Author Organization [facility] Care Team Providers Care Weather Stripper Name Role Phone PHYSICIAN, DEFAULT Unavailable Unavailable PHYSICIAN, DEFAULT Unavailable Unavailable Naga Wells Unavailable None, . Primary Care Provider UnavailAlesha Garcia Unavailable LILIA RUIZ Consulting Unavailable LILIA RUIZ Attending Unavailable LILIA RUIZ Admitting Unavailable NADEREWendi, DR CHAS Norman Primary Care Unavailable GILDARDO TAYLOR Consulting Unavailable KARASIK ., DR DOUGHERTY Consulting Unavailabl e KARASIK ., DR DOUGHERTY Attending Unavailabl e KARASIK ., DR DOUGHERTY Admitting Unavailabl e NADERER, DR CHAS Norman Primary Care Unavailable NADERER, DR CHAS Norman Consulting Unavailable KARASIK ., DR DOUGHERTY Attending Unavailabl e KARASIK ., DR DOUGHERTY Admitting Unavailabl e KARASIK ., DR DOUGHERTY Consulting Unavailabl e SHERRIE, DR CHAS Norman Primary Care Unavailable NICHOLAS, DR ZAMORA Attending Unavailable NICHOLAS, DR ZAMORA Admitting Unavailable NADERER, DR CHAS Norman Primary Care Unavailable NICHOLAS, DR ZAMORA Consulting Unavailable RAYSA LINN Attending Unavailable RAYSA LINN Admitting Unavailable NADEREWendi, DR CHAS Norman Primary Care Unavailable NICHOLAS, DR ZAMORA Admitting Unavailable NICHOLAS, DR ZAMORA Attending Unavailable NICHOLAS, DR ZAMORA Consulting Unavailable NADERER, DR CHAS Norman Primary Care Unavailable ZILEVI, DR GERARD Adame Consulting Unavailable SHAIKH Vandana REED Attending Unavailable SHAIKH Vandana REED Admitting Unavailable NADEREWendi, DR CHAS Norman Primary Care Unavailable NICHOLAS, DR ZAMORA [...] NADERER, DR WOOD A Primary Care Unavailable FAWWAD, AMEZQUITA H Attending [...] A Primary Care Unavailable NICHOLAS, DR ZAMORA Attending Unavailable WEST, DR ALINE Henriquez Consulting Unavailable NICHOLAS, DR ZAMORA Admitting Unavailable NADERER, DR CHAS Norman Primary Care Unavailable NIHCOLAS, DR ZAMORA Consulting Unavailable KARASIK ., DR DOUGHERTY Consulting Unavailabl e NADERER, DR CHAS Norman Primary Care Unavailable KARASIK ., DR DOUGHERTY Attending Unavailabl e KARASIK ., DR DOUGHERTY Admitting Unavailabl e NICHOLAS, DR ZAMORA Consulting Unavailable ZIEBER, DR GERARD Adame Consulting Unavailable NICHOLAS, DR ZAMORA Admitting Unavailable NICHOLAS, DR ZAMORA Attending Unavailable NADERER, DR CHAS Norman Primary Care Unavailable NICHOLAS, DR ZAMORA Consulting Unavailable KARASIK ., DR DOUGHERTY Admitting Unavailabl e KARASIK ., DR DOUGHERTY Consulting Unavailabl e KARASIK ., DR DOUGHERTY Attending Unavailabl e NADERER, DR CHAS Norman Primary Care Unavailable NICHOLAS, DR ZAMORA Consulting Unavailable NICHOLAS, DR ZAMORA Attending Unavailable NICHOLAS, DR ZAMORA Admitting Unavailable NADERER, DR CHAS A Primary Care Unavailable ZIEBER, DR GERARD Adame Consulting Unavailable KARASIK ., DR DOUGHERTY Admitting Unavailabl e KARASIK ., DR DOUGHERTY Consulting Unavailabl e KARASIK ., DR DOUGHERTY Attending Unavailabl e NADERER, DR CHAS Norman Primary Care Unavailable NICHOLAS, DR ZAMORA Admitting Unavailable NICHOLAS, DR ZAMORA Attending Unavailable NADERER, DR CHAS Norman Primary Care Unavailable NICHOLAS, DR ZAMORA Admitting Unavailable KARASIK ., DR DOUGHERTY Consulting Unavailabl e NICHOLAS, DR ZAMORA Attending Unavailable NADERER, DR CHAS Norman Primary Care Unavailable WEST, DR ALINE Henriquez Consulting Unavailable NICHOLAS, DR ZAMORA Consulting Unavailable KARASIK ., DR DOUGHERTY Admitting Unavailabl e KARASIK ., DR DOUGHERTY Consulting Unavailabl e KARASIK ., DR DOUGHERTY Attending Unavailabl e NADERER, DR CHAS Norman Primary Care Unavailable KARASIK ., DR DOUGHERTY Attending Unavailabl e KARASIK ., DR DOUGHERTY Admitting Unavailabl e KARASIK ., DR DOUGHERTY Consulting Unavailabl e FAWMEGAN, [facility] Primary Care Unavailable NICHOLAS, DR ZAMORA Admitting Unavailable NICHOLAS, DR ZAMORA Attending Unavailable NADERER, DR CHAS Norman Primary Care Unavailable NICHOLAS, DR ZAMORA Consulting Unavailable ZIEBER, DR GERARD Adame Consulting Unavailable KARASIK ., DR DOUGHERTY Attending Unavailabl e KARASIK ., DR DOUGHERTY Admitting Unavailabl e KARASIK ., DR DOUGHERTY Consulting Unavailabl e NADERER, DR CHAS Norman Primary Care Unavailable KARASIK ., DR DOUGHERTY Admitting Unavailabl e KARASIK ., DR DOUGHERTY Consulting Unavailabl e KARASIK ., DR DOUGHERTY Attending Unavailabl e NADERER, DR CHAS Norman Primary Care Unavailable NICHOLAS, DR ZAMORA Consulting Unavailable NICHOLAS, DR ZAMORA Admitting Unavailable NICHOLAS, DR ZAMORA Attending Unavailable NADERER, DR CHAS Norman Primary Care Unavailable NICHOLAS, DR ZAMORA Consulting Unavailable NICHOLAS, DR ZAMORA Attending Unavailable NICHOLAS, DR ZAMORA Admitting Unavailable NADERER, DR CHAS Norman Primary Care Unavailable DAV VILLAR Consulting Unavailable JIAN, DAV Attending Unavailable LUCASWMEGAN, [facility] Primary Care Unavailable DAV VILLAR Admitting Unavailable RICKY LOPEZ Consulting Unavailable NICHOLAS, DR ZAMORA Admitting Unavailable NICHOLAS, DR ZAMORA Attending Unavailable NADERER, DR CHAS Norman Primary Care Unavailable NICHOLAS, DR ZAMORA Admitting Unavailable NICHOLAS, DR ZAMORA Attending Unavailable NICHOLAS, DR ZAMORA Consulting Unavailable NADERER, DR CHAS Norman Primary Care Unavailable ZIEBER, DR GERARD Adame Consulting Unavailable NICHOLAS, DR ZAMORA Admitting Unavailable NICHOLAS, DR ZAMORA Attending Unavailable NADERER, DR CHAS Norman Primary Care Unavailable NICHOLAS, DR ZAMORA Consulting Unavailable NICHOLAS, DR ZAMORA Admitting Unavailable NICHOLAS, DR ZAMORA Attending Unavailable NICHOLAS, DR ZAMORA Consulting Unavailable NADERER, DR CHAS Norman Primary Care Unavailable NICHOLAS, DR ZAMORA Admitting Unavailable NICHOLAS, DR ZAMORA Attending Unavailable NADERER, DR CHAS Norman Primary Care Unavailable NICHOLAS, DR ZAMORA Consulting Unavailable ZIEBER, DR GERARD Adame Consulting Unavailable NICHOLAS, DR ZAMORA Admitting Unavailable NICHOLAS, DR ZAMORA Attending Unavailable NICHOLAS, DR ZAMORA Consulting Unavailable NADERER, DR CHAS Norman Primary Care Unavailable NICHOLAS, DR ZAMORA Admitting Unavailable NICHOLAS, DR ZAMORA Attending Unavailable NICHOLAS, DR ZAMORA Consulting Unavailable NADERER, DR CHAS Norman Primary Care Unavailable ZIEBER, DR GERARD Adame Consulting Unavailable NICHOLAS, DR ZAMORA Admitting Unavailable NICHOLAS, DR ZAMORA Attending Unavailable NADERER, DR CHAS Norman Primary Care Unavailable NICHOLAS, DR ZAMORA Consulting Unavailable NICHOLAS, DR ZAMORA Admitting Unavailable NICHOLAS, DR ZAMORA Attending Unavailable NADERER, DR CHAS Norman Primary Care Unavailable NICHOLAS, DR ZAMORA Consulting Unavailable ZIEBER, DR GERARD Adame Consulting Unavailable NICHOLAS, DR ZAMORA Attending Unavailable MISC, DR ROSE Primary Care Unavailable NICHOLAS, DR ZAMORA Admitting Unavailable MD Aline Villalobos Primary Care Provider [phone] CHRISTI MullerP-Kaushik Coronado Attending Provider Aline Villalobos Primary Care Unavailable Renzo, Razia E Admitting Unavailable Razia Muller Attending Unavailable Aline Villalobos Primary Care Unavailable Renzo, Razia E Admitting Unavailable Razia Muller Attending Unavailable Jovita Murcia Unavailable Schlachter CAR JOCKEY-STOCKLAYER, Katerin Primary Care Provide r Schlachter CAR JOCKEY-STOCKLAYER, Katerin Primary Care Provide r Chas Balderas MD Primary Care Provider LINDSEY MCMAHON Attending Unavailable MULLER, RAZIA Referring Unavailable NADERER, CHAS Primary Care Unavailable SCHLACHTER, KATERIN Attending Unavailable SCHLACHTER, KATERIN Referring Unavailable SCHLACHTER, KATERIN Primary Care Unavailable NADERER, CHAS Primary Care Unavailable BONITA COFFMAN Attending Unavailable NADERER, CHAS Primary Care Unavailable HERBERT, MANUEL Redman Attending Unavailable SCHLACHTER, KATERIN Primary Care Unavailable CLAUDIA SOLARES Attending Unavailable ELLEN, LINA Watkins Attending Unavailable LINA HUGHES Referring Unavailable SCHLACHTER, KATERIN Primary Care Unavailable MULLER, RAZIA Referring Unavailable SCHLACHTER, KATERIN Primary Care Unavailable HERBERT, MANUEL Redman Attending Unavailable HERBERT, MANUEL Redman Referring Unavailable NADERER, CHAS Primary Care Unavailable CHARMAINE HAIRSTON Attending Unavailable NICHOLAS, NOAH Attending Unavailable NADERER, CHAS Attending Unavailable NICHOLAS, NOAH Attending Unavailable NADERER, CHAS Attending Unavailable NICHOLAS, NOAH Attending Unavailable NICHOLAS, NOAH Attending Unavailable NICHOLAS, NOAH Attending Unavailable EPIFANIO, MATEO C Referring Unavailable NADERER, CHAS STAPLETON Primary Care Unavailabl e PERLORAINE, MATEO C Referring Unavailable NADEREWendi, CHAS STAPLETON Primary Care Unavailabl e Allergies Allergy Classification Reported Allergen(s) Allergy Type Date of Onset Reaction(s) Facility (20 sources) Amoxicillin; Translations: [Amoxicillin] Drug Allergy 11-08-18 96 Anaphylaxis, shortness of breath [facility] (17 sources) Morphine; Translations: [MORPHINE] Drug Allergy 09-18-19 18 [employer] Other (15 sources) Codeine; Translations: [CODEINE] Drug Allergy 06-06-19 23 [id number] [facility] (12 sources) Penicillins; Translations: [PENICILLINS] Propensity to adverse reactions to drug 02-22-20 16 Anaphylaxis, Shortness Of Breath [facility] Work Phone: (1 source) Codeine Drug Allergy 07-30-19 22 [facility] (1 source) Morphine Drug Allergy [facility] (1 source) Codeine Drug Allergy 12-23-19 23 [facility] Rep[facility] (1 source) Morphine Drug Allergy 05-25-19 21 [facility] Rep[facility] (1 source) Pseudoephedrine Drug Allergy 02-22-20 Unknown [employer] Other (1 source) Allergies Reconciled Propensity to adverse reactions 02-28-20 Unknown [employer] Other (1 source) Substance with penicillin structure and antibacterial mechanism of action (substance) Drug allergy 02-28-20 Unknown [employer] Other (1 source) Morphine Sulfate (Concentrate) *ANALGESICS - OPIOI Propensity to adverse reactions 02-28-20 Unknown [employer] Other (9 sources) Doxycycline; Translations: [DOXYCYCLINE] Drug Allergy 02-08-20 23 [facility] Medications Current Medications Medication Drug Class(es) Dates [...] as needed Orally every 6 hrs Active [id number] 200 actuat albuterol 0.09 mg/actuat metered dose inhaler (11 sources) beta2-Adrenergic Agonist Start: 02-26-2023 take 2 puff(s) by [...] MG PO Daily November 27, 2018 12:00am azithromycin 250 mg oral tablet (2 sources) [...] tablet cetirizine hydrochloride 10 mg oral tablet (10 sources) Histamine-1 Receptor Antagonist Start: 03-12-2023 End: 06-25-2023 take 1 tablet by mouth in the morning cetirizine (ZyrTEC) 10 mg tablet TAKE 1 TABLET (10 MG TOTAL) BY MOUTH IN THE MORNING 30 tablet 2 06/25/2023 Active Start: 07-18-2022 take 1 tablet by [...] 05-02-2022 citalopram (CE BRENNA) 20 MG tablet doxycycline hyclate 100 mg oral tablet (1 source) Tetracycline-class Drug Start: 02-05-2023 take 1 tablet by mouth every twelve hours Doxycycline Hyclate 100 MG 1 tablet Orally Twice a day for 10 day(s) Jan, Active fluticasone propionate 0.05 mg/actuat metered dose nasal spray (10 sources) Corticosteroid Start: 06-25-2023 take 1 spray(s) nasal route in the morning fluticasone propionate (FLONASE) 50 mcg/actuation nasal spray SPRAY 1 SPRAY INTO EACH NOSTRIL IN THE MORNING 16 mL 2 06/25/2023 Active Start: 03-12-2023 End: 06-25-2023 take 1 spray(s) nasal route in the morning fluticasone propionate (FLONASE) 50 mcg/actuation nasal spray Administer 1 spray into each nostril in the morning. 15.8 mL 2 03/12/2023 06/25/2023 Discontinued Start: 07-18-2022 take 1 spray(s) nasa l [...] Alcohol Swabs (ALCOHOL PREP) 70 % PADS labetalol hydrochloride 100 mg oral tablet (14 sources) beta-Adrenergic Roxana Start: 06-06-2023 take 2 [...] 12:00am Start: 07-22-2022 take 4 tablets by mo uth at bedtime labetalol (NORMODYNE) 100 MG tablet [...] Starting on [place] 07/20/22 at 1933, levonorgestrel 0.216985 mg/hr intrauterine system (2 sources) Progestin, Progestin-containing Intrauterine Device Start: 12-22-2022 Levonorgestrel (Mirena) 21 mcg/24 hours (8 yrs) 52 mg Intrauterine Device Active 1 DEVICE INTRAUTERI Once December 22, 2022 12:00am as a single dose Start: 07-20-2022 End: 07-20-2022 levonorgestrel (MIRENA) IUD 52 mg 1 each 24 hr metFORMIN hydrochloride 500 mg extended release oral tablet (9 sources) Biguanide Start: 08-30-2022 take 2 tablets [...] MG CAPS no115/iron/folic acid ( 19 ORAL) (7 sources) no115/iron/folic acid ( 19 ORAL) Take [...] Indications: Upper Airway Symptoms 0 05/21/2011 Active topiramate 25 mg oral tablet (1 source) Start: 12-22-2022 take 3 tablets by mouth twice daily Topiramate (Topamax) 25 mg Tablet Active 75 MG PO Twice daily December 22, 2022 12:00am Completed/Discontinued Medications Medication Drug Class(es) Dates Sig (Normalized) Sig (Original) acetaZOLAMIDE 250 mg oral tablet (7 sources) Carbonic Anhydrase Inhibitor Start: 12-27-2022 End: 06-29-2023 take 1 tablet by mouth in the morning, then take 1 tablet by mouth at bedtime acetaZOLAMIDE (DIAMOX) 250 mg tablet Take 1 tablet (250 mg total) by mouth in the morning and 1 tablet (250 mg total) before bedtime. 0 12/27/2022 06/29/2023 Discontinued (Discontinued by another clinician) Aspir-81 (3 sources) Aspir-81 Not-Renny ing Aspir-81 Active aspirin 81 mg delayed release oral tablet (3 sources) Platelet Aggregation Inhibitor, Nonsteroidal Anti-inflammatory Drug End: 07-20-2022 take 1 tablet by mouth once daily aspirin 81 MG EC tablet Take 81 mg by mouth daily 0 07/20/2022 Discontinued (Stop Taking at Discharge) atogepant (QULIPTA) 30 mg tablet (6 sources) End: 06-29-2023 take 1 tablet by mouth in the morning atogepant (QULIPTA) 30 mg tablet Take 30 mg by mouth in the morning. 0 06/29/2023 Discontinued (Discontinued by another clinician) take 1 tablet by mouth in the mo rning atogepant (QULIPTA) 30 mg tablet Take 30 mg by mouth in the morning. 0 Active biotin 5 mg disintegrating oral tablet (2 [...] [place] 07/20/22 at 1933, Until Discontinued, Constipation, Budesonide-Formotero l (2 sources) Corticosteroid, beta2-Adrenergi c Agonist Start: 11-27-2018 End: 12-22-2022 take 1 puff(s) by inhalation twice daily Budesonide-Formote rol (Symbicort) 160-4.5 mcg/actuation Hfa Aerosol Inhaler Discontinued [...] in dextrose 5 % 50 mL IVPB cyclobenzaprine hydrochloride 10 mg oral tablet (6 sources) Muscle Relaxant Start: 02-24-2023 End: 06-29-2023 take 1 tablet by mouth twice daily as needed for muscle spasms cyclobenzaprine (FLEXERIL) 10 mg tablet Take 1 tablet (10 mg total) by mouth 2 (two) times a day as needed for muscle spasms. 10 tablet 0 02/24/2023 06/29/2023 Discontinued (Discontinued by another clinician) 1 ml diphenhydrAMINE hydrochloride 50 mg/ml cartridge [...] iopamidol (ISOVUE-370) 76 % injection 75 mL ketorolac tromethamin e 10 mg oral tablet (6 sources) Nonstero idal Anti-inf lammator y Drug, Cyclooxy genase Inhibito r Start: 02-26-2023 End: 06-29-2023 t a k e 1 t a b l e t b y m o u t h e v e r y s i x h o u r s a s n e e d e d f o r p a i n ketorolac (TORADOL) 10 mg tablet Take 1 tablet (10 mg total) by mouth every 6 (six) hours as needed for pain. 20 tablet 0 02/26/2023 06/29/2023 Discontinued (Discontinued by another clinician) lamoTRIgine 150 mg oral tablet (4 sources) [...] Active levothyroxine sodium 0.05 mg oral tablet (18 sources) l-Thyroxine Start: 05-22-2022 End: 07-20-2022 levothyroxine (SYNTHROID) 75 MCG tablet Start: 11-27-2018 take 50 ug by mouth once daily Levothyroxine Active 50 MCG PO Daily November 27, 2018 12:00am Start: 11-27-2018 take 25 ug by mouth once daily Levothyroxine Active 25 MCG PO Daily November 27, 2018 12:00am Start: 02-07-2018 take 1 tablet by ken th in the morning levothyroxine (SYNTHROID, LEVOTHROID) 50 MCG tablet Take 1 tablet (50 mcg total) by mouth in the morning. 5 02/07/2018 Active take 1 tablet by [...] 27, 2018 12:00am December 22, 2022 8:12am magnesium hydroxide 80 mg/ml oral suspension (1 source) Start: 07-20-2022 take 30 mL by mouth once daily as needed 30 mL, Oral, DAILY PRN, Starting on Sun07/20/22 at 1933, Until Discontinued, Constipation, magnesium lactate 84 mg extended release oral tablet (6 sources) End: 06-29-2023 take 1 tablet by mouth in the morning magnesium (MAGTAB) 84 mg tablet extended release CR tablet Take 1 tablet (84 mg total) by mouth in the morning. 0 06/29/2023 Discontinued (Discontinued by another clinician) 2 ml metoclopramide 5 mg/ml prefilled syringe [...] 07-20-2022 0.4 mg, IntraVENous, PRN, Starting on Sun07/20/22 at 1933, Until Discontinued, Opioid Reversal, 2 [...] tablet 0 11/16/2017 Active polyethylene glycol 3350 72016 mg powder for oral solution (3 sources) [...] MG tablet 1 tablet (1 source) Start: 07-20-2022 take 1 tablet by ken th once daily 1 tablet, Oral, DAILY, First dose on Sun07/20/22 at 2000, Until Discontinued Begin when normal bowel activity resumes. rimegepant 75 mg disintegrating oral tablet (6 sources) Start: 10-23-2022 End: 06-29-2023 NURTE ODT 75 mg tablet,disintegratin g TAKE 1 TABLET BY MOUTH NEEDED FOR ONSET OF MIGRAINE, ONLY 1 IN 24 HOURS 0 10/23/2022 06/29/2023 Discontinued (Discontinued by another clinician) simethicone 80 mg chewable tablet (1 source) [...] Midline or Central Line = 10 mL/lumen. & nbsp;If following IV push medication, administer flush at same rate as the IV push. Flush volume is determined by type of infusion therapy being given. Fo r non-viscous solutions use: Peripheral IV = 5 [...] Midline or Central Line = 20 mL/lumen valACYclovir 500 mg oral tablet (7 sources) Herpesvirus Nucleoside Analog DNA Polymerase Inhibitor, Herpes Simplex Virus Nucleoside Analog DNA Polymerase Inhibitor, Herpes Zoster Virus Nucleoside Analog DNA Polymerase Inhibitor Start: 10-21-2021 End: 06-29-2023 take 1 tablet by mouth in the morning valACYclovir (VALTREX) 500 mg tablet Take 1 tablet (500 mg total) by mouth in the morning. 0 10/21/2021 06/29/2023 Discontinued (Discontinued by another clinician) Vitamin B Complex (3 sources) Start: 11-27-2018 [...] Translations: [Anal fissure, unspecified] Episodic Anxiety disorders (9 sources) Anxiety disorder; Translations: [Anxiety disorder, unspecified] [...] Translations: [Presence of (intrauterine) contraceptive device] Onset: 03-30-2023 Episodic Diabetes or abnormal glucose tolerance complicating [...] Dysuria; Translations: [Dysuria] Episodic Headache; including migraine (2 sources) Chronic migraine without aura, non-refractory; Translations: [Chronic migraine without aura, not intractable, without status migrainosus] Onset: 06-14-2023 Chronic Headache; including migraine (2 sources) Headache; including [...] Hypertension complicating ; childbirth and the puerperium (13 sources) Hypertension complicating ; Translations: [Unspecified maternal [...] influenza virus with other respiratory manifestations] Episodic Malaise and fatigue (2 sources) Fatigue; Translations: [Other fatigue] Onset: 06-29-2023 06-29-2023 Episodic Menstrual disorders (6 sources) Irregular menstruation, unspecified; Translations: [Irregular periods] Onset: 01-09-2022 Chronic Mood disorders (8 sources) Bipolar affective disorder, currently depressed, in full remission; Translations: [Bipolar disorder, in full remission, most recent episode depressed] Onset: 06-02-2018 06-02-2018 Chronic Nausea and vomiting (3 sources) Nausea; Translations: [Nausea] Episodic Nonspecific chest pain (1 source) Chest pain, unspecified; Translations: [CHEST PAIN UNSPECIFIED] Onset: 05-26-2022 Episodic Other aftercare (1 source) 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; Translations: [[facility] CURRENT USE OF INSULIN] Onset: 07-14-2022 Episodic [...] mother] Onset: 07-20-2022 Episodic Other complications of (4 sources) Other [...] tract in , unspecified trimester] Episodic Other complications of (2 sources) Supervision of other high risk pregnancies, second trimester; Translations: [Supervision of other high risk pregnancies, second trimester] Onset: 11-08-2023 Episodic Other connective tissue disease (1 source) Other specified soft tissue disorders; Translations: [OTHER SPEC SOFT TISSUE DISORDERS] Onset: 07-25-2022 Episodic Other connective tissue disease (1 source) Disorder of soft tissue; Translations: [Other specified soft tissue disorders] Episodic Other connective tissue disease (1 source) Pain in right foot; Translations: [Pain in right foot] Onset: 09-10-2023 Episodic Other connective tissue disease (1 source) Foot pain Onset: 09-10-2023 Episodic Other ear and sense organ disorders [...] of) liver, not elsewhere classified] Chronic Other lower respiratory disease (1 source) Snoring; Translations: [Snoring] 06-29-2023 Episodic Other lower respiratory disease (1 source) Snoring; Translations: [Snoring] Onset: 06-29-2023 Episodic Other nervous system disorders (1 source) Carpal tunnel syndrome of right wrist; Translations: [Carpal tunnel syndrome, right upper limb] Chronic Other nervous system disorders (1 source) Cerebral cysts; Translations: [Cerebral cysts] Onset: 06-14-2023 Chronic Other nervous system disorders (1 source) Paresthesia of skin; Translations: [Paresthesia of skin] Onset: 06-14-2023 Episodic Other nutritional; endocrine; and metabolic disorders (2 [...] Translations: [Otitis media, unspecified, unspecified ear] Episodic Poisoning by other medications and drugs (1 source) Poisoning by beta-adrenoreceptor antagonists, accidental (unintentional), initial encounter; Translations: [Poisoning by beta-adrenoreceptor antagonists, accidental (unintentional), initial encounter] Onset: 08-28-2023 Episodic Previous (2 sources) Maternal care for unspecified type scar from previous delivery; Translations: [Maternal care for low transverse scar from previous delivery] Onset: 07-14-2022 Episodic Residual codes; unclassified (1 source) Obstructive sleep apnea syndrome; Translations: [Obstructive sleep apnea (adult) (pediatric)] 06-29-2023 Chronic Residual codes; unclassified (1 source) Obstructive sleep apnea (adult) (pediatric); Translations: [Obstructive sleep apnea (adult) (pediatric)] Onset: 06-29-2023 Chronic Residual codes; unclassified (3 sources) Postoperative state; Translations: [Other specified postprocedural states] Onset: 07-20-2022 Episodic Residual codes; unclassified (2 sources) Gestation period, 36 weeks; Translations: [36 weeks gestation of ] Onset: 07-20-2022 Resolved: 07-22-2022 Episodic Residual codes; unclassified (1 source) 36 weeks gestation of ; Translations: [36 WEEKS GESTATION OF ] Onset: 07-25-2022 Episodic Residual codes; unclassified (1 source) 35 weeks gestation of ; Translations: [35 WEEKS GESTATION OF ] Onset: 07-16-2022 Episodic Residual codes; unclassified (1 source) 34 [...] Translations: [33 weeks gestation of ] Episodic Residual codes; unclassified (1 source) Amnesia; Translations: [Other amnesia] 06-29-2023 Episodic Residual codes; unclassified (1 source) Other amnesia; Translations: [Other amnesia] Onset: 06-29-2023 Episodic Residual codes; unclassified (2 sources) Family history of other specified conditions; Translations: [Family history of other specified conditions] Onset: 10-09-2023 Episodic Substance-related disorders (1 source) Nicotine dependence, cigarettes, uncomplicated; Translations: [NICOTINE DEPEND CIGARETTES UNCOMP] Onset: 05-26-2022 Chronic Substance-related disorders (1 source) Other psychoactive substance use, unspecified, uncomplicated; Translations: [Other psychoactive substance use, unspecified, uncomplicated] Onset: 08-28-2023 Episodic Thyroid disorders (7 sources) Hypothyroidism, unspecified; Translations: [Hypothyroidism] Onset: 09-12-2021 Chronic Unclassified (3 sources) OTH SPCF DIS/COND COMPL ; Translations: [OTH SPCF DIS/COND COMPL ] Onset: 06-01-2022 Unclassified (1 source) LOW BACK PAIN, UNSPECIFIED; Translations: [LOW BACK PAIN, UNSPECIFIED] Onset: 04-19-2022 Unclassified (1 source) New Patient Onset: 06-29-2023 Unclassified (1 source) Toxicology Problem Onset: 08-28-2023 Unclassified (1 source) Accidental Overdose Onset: 08-28-2023 Viral infection (2 sources) Enteroviral vesicular stomatitis [...] UNS OVREXRT/STRN MVMT/POS INT] Onset: 03-22-2022 Episodic Headache; including migraine (2 sources) Morning headache; Translations: [Morning headache] Onset: 05-16-2023 06-29-2023 Episodic Immunizations and screening for infectious disease (8 sources) Contact with and (suspected) exposure to other viral communicable diseases; Translations: [Encounter for screening for infections with a predominantly sexual mode of transmission] Onset: 12-28-2021 Resolved: 04-13-2021 Episodic Mood disorders (7 sources) Mood disorders Onset: 11-30-2021 11-30-2021 Other [...] TRI] Onset: 04-11-2022 Episodic Other complications of (7 sources) depression; Translations: [Other mental disorders complicating [...] Resolved: 07-22-2022 09-25-2011 Episodic Residual codes; unclassified (3 sources) Gestation period, 35 weeks; Translations: [35 weeks gestation of ] Onset: 07-15-2022 Resolved: 07-22-2022 Episodic Residual codes; unclassified (1 source) 25 [...] weeks gestation of ] Resolved: 04-13-2021 Episodic Spondylosis; intervertebral disc disorders; other back problems (3 sources) Low back pain; Translations: [Low back pain, unspecified] Onset: 05-16-2023 06-05-2023 Episodic Sprains and strains (2 sources) Strain of unspecified muscle, fascia and tendon at shoulder and upper arm level, right arm, initial encounter; Translations: [STRN UNS MSC F TND SHLDR UA RA INIT] Onset: 03-22-2022 Episodic Unclassified (1 source) OT SPCF DIS/COND COMPL ; Translations: [OTH SPCF DIS/COND COMPL ] Onset: 05-29-2022 Unclassified (1 source) abnormal result; Translations: [Other nonspecific abnormal finding] Unclassified (1 source) Myalgic encephalomyelitis/chr onic fatigue syndrome; Translations: [Myalgic encephalomyelitis/chr onic fatigue syndrome] Resolved: 07-20-2021 Unclassified (1 source) Suspected COVID-19 virus infection Z20.822 Unclassified (7 sources) Onset: 05-03-2023 05-03-2023 Results Test Name Value Interpretation Reference Range Facility Thyroid Stim. Horm.on 2023 Thyroid Stim. Horm. 1.66 uIU/mL Normal 0.27-4.20 [facility] Comment on above: Performed By: #### F T4, TSH #### [employer] [address] [place] [address] [phone] Injection Operator: Gideon Bullock MD Thyroxine, Freeon 11-08-2023 Thyroxine, Free 0.9 ng/dL Low 0.92-1.68 [facility] Comment on above: Performed By: #### F T4, TSH #### [facility] [place] [address] Injection Operator: Gideon Bullock MD PT Mutation [id number] 10-13-19 PT [id number] VARIANT Negative Normal [facility] Comment on above: Result Comment: (NOT E) Indication for testing: Assess genetic risk for thrombosis. NEGATIVE: The Factor II, prothrombin [id number] mutation, was not detected. Other causes of elevated prothrombin levels and hereditary forms of venous thrombosis have not been excluded. Recommendations: If clinically indicated, testing for other inherited or acquired thrombophilic disorders is recommended including DNA testing for the factor V Leiden mutation, measurement of total plasma homocysteine concentration, serological assays for anticardiolipin antibodies, multiple phospholipid-dependent coagulation assays for lupus inhibitor, protein C activity, protein S activity or free protein S antigen, and antithrombin activity. This result has been reviewed and approved by Angella Dsouza, Ph.D. 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 The expression of Factor II thrombophilia is impacted by coexisting genetic thrombophilic disorders, acquired thrombophilic disorders (eg, malignancy, hyperhomocysteinemia, high factor VIII levels), and circumstances including: , oral contraceptive use, hormone replacement therapy, selective estrogen receptor modulators, travel, central venous catheters, surgery, and organ transplantation. INCIDENCE: Approximately 2 percent of Caucasians and 0.3 percent of Americans are heterozygous; homozygosity occurs in 1 in 10,000 individuals. INHERITANCE: Incomplete autosomal dominant. PENETRANCE: The risk of thrombosis is increased 2-4 fold for heterozygotes and further increased for homozygotes. CAUSE: Homozygosity or heterozygosity for F2 c.*97G>A (M61559W). PATHOGENIC VARIANT TESTED: F2 c.*97G>A ([id number]). CLINICAL SENSITIVITY FOR VENOUS THROMBOSIS: Approximately 10 percent. METHODOLOGY: Polymerase chain reaction and fluorescence monitoring. ANALYTICAL SENSITIVITY AND SPECIFICITY: 99 percent. LIMITATIONS: Diagnostic errors can occur due to rare sequence variations. F2 gene variants, other than c.*97G>A (X23311W), will not be detected. This test was developed and its performance characteristics determined by [employer] [facility]. It has not been cleared or approved by the US Food and Drug Administration. This test was performed in a CLIA certified laboratory and is intended for clinical purposes. Counseling and informed consent are recommended for genetic testing. Consent forms are available online. Performed By: [facility] [address] [place] [id number] Audit Intern: Andrew Duran MD, PhD CLIA Number: [id number] Performed By: #### F T4, TSH #### [address] [id number] Injection Operator: Gideon Bullock MD PT PCR SPECIMEN Whole Blood Normal [facility] Comment on above: Performed By: #### F T4, TSH #### [facility] [address] [place] [address] Injection Operator: Gideon Bullock MD Factor V Mutationon 10-12-19 24 F 5 SPECIMEN Whole Blood Normal [facility] Comment on above: Performed By: #### F T4, TSH #### [facility] [address] [place] [address] Injection Operator: Gideon Bullock MD FACTOR 5 MUTATION Negative Normal [facility] Comment on above: Result Comment: (NOT E) Indication for testing: Assess genetic risk for thrombosis. NEGATIVE: The factor V Leiden variant, c.1601G>A; p.Voa592Swf, was not detected. This does not exclude a genetic cause for thrombophilia. If this individual has had a previous venous thromboembolism, this negative result is unlikely to significantly reduce the risk for recurrence; thus, future clinical management to reduce recurrence should not be altered. This result has been reviewed and approved by Angella Dsouza, Ph.D. BACKGROUND INFORMATION: Factor V Leiden (F5) R506Q Mutation CHARACTERISTICS: Venous thromboembolism (VTE) is multifactorial caused by a combination of genetic and environmental factors. The Factor V Leiden (FVL) variant is the most common cause of inherited VTEs, accounting for over 90 percent of activated protein C (APC) resistance. Because the FVL variant eliminates the APC cleavage site, factor V is inactivated slower, thus persisting longer in blood circulation, leading to more thrombin production. Other genetic risk factors for VTE include, male sex and variants in antithrombin, protein C, protein S, or factor XIII. Non-genetic risk factors include, age, smoking, prolonged immobilization, malignant neoplasms, surgery, , oral contraceptives, estrogen replacement therapy, tamoxifen and raloxifene therapy. INCIDENCE OF FACTOR V LEIDEN VARIANT: Approximately 5 percent of Caucasians, 2 percent of Hispanics, 1 percent of Americans and 0.5 percent of Asians are heterozygous; homozygosity occurs in 1 in 1500 Caucasians. INHERITANCE: Semi-dominant; both heterozygotes and homozygotes are at increased risk for VTE. PENETRANCE: Lifetime risk of VTE is 10 percent for heterozygotes and 80 percent of homozygotes. CAUSE: The pathogenic gain of function in the F5 gene variant c.1601G>A (p.Ozx876Wwr). Legacy nomenclature: R506Q (1691G>A) CLINICAL SENSITIVITY: 20-50 percent of individuals with an isolated VTE have the FVL variant. METHODOLOGY: Polymerase chain reaction and fluorescence monitoring. ANALYTICAL SENSITIVITY AND SPECIFICITY: 99 percent. LIMITATIONS: Diagnostic errors can occur due to rare sequence variations. F5 gene mutations, other than p.Xtu773Tfx, will not be detected. This test was developed and its performance characteristics determined by [facility]. It has not been cleared or approved by the US Food and Drug Administration. This test was performed in a CLIA certified laboratory and is intended for clinical purposes. Counseling and informed consent are recommended for genetic testing. Consent forms are available online. Performed By: [facility] [address] [place] [id number] Audit Intern: Andrew Duran MD, PhD CLIA Number: [id number] Performed By: #### F T4, TSH #### [address] [id number] Injection Operator: Gideon Bullock MD MTHFR Gene Mutationon 2023 MTHFR 1286 A>C Mut Heterozygous Normal [facility] Comment on above: Performed By: #### F T4, TSH #### [facility] [address] [place] [address] [phone] Injection Operator: Gideon Bullock MD MTHFR 655C>T Mut Negative Normal [facility] Comment on above: Performed By: #### F T4, TSH #### [facility] [address] [place] [address] Injection Operator: Gideon Bullock MD MTHFR Interpretation See Note Normal [facility] Comment on above: Result Comment: (NOT E) Indication for testing: Determine genetic contribution to hyperhomocysteinemia. 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 This common variant is present in 15 percent of Americans and 31 percent of Caucasians. Although MTHFR enzyme levels may be mildly reduced, this genotype is not predicted to have clinical significance. This result has been reviewed and approved by Angella Dsouza, Ph.D. Background Information: Methylenetetrahydrofolate Reductase (MTHFR) 2 Variants Characteristics: Variants in the MTHFR gene may reduce enzyme activity contributing to hyperhomocysteinemia. Although hyperhomocysteinemia was previously reported to be a risk factor for many conditions, especially venous thrombosis and cardiovascular disease, recent meta-analysis casts doubt on whether lifelong moderate homocysteine elevation has an effect on cardiovascular disease. The [employer] Practice Guidelines indicate that individuals with elevated homocysteine and two copies of the c.665C>T variant have an odds ratio of 1.27 for venous thromboembolism. Thus, they recommend MTHFR genotyping not be ordered as part of a routine evaluation for recurrent loss or thromobophilia due to questionable clinical significance. Incidence: The allele frequency of the c.665C>T variant is 0.35 in Caucasians, 0.5 in Hispanics, and 0.12 in Americans. Inheritance: Autosomal recessive; two copies of the c.665C>T variant may be a contributing factor to hyperhomocysteinemia. Variants Tested: c.665C>T(p.Jfr483Awa) and c.1286A>C(p.Nev790Wln). (legacy names C677T and G3294Z, respectively). Clinical Sensitivity: Undefined; hyperhomocysteinemia is caused by genetic, physiologic and environmental factors. MTHFR variants are only one contributing factor. Methodology: Polymerase chain reaction (PCR) and fluorescence monitoring. Analytical Sensitivity and Specificity: 99 percent. Limitations: Only two MTHFR gene variants (c.665C>T and c.1286A>C) are tested. Diagnostic errors can occur due to rare sequence variations. This test was developed and its performance characteristics determined by [facility]. It has not been cleared or approved by the US Food and Drug Administration. This test was performed in a CLIA certified laboratory and is intended for clinical purposes. Counseling and informed consent are recommended for genetic testing. Consent forms are available online. Performed By: [facility] [address] [place] [id number] Audit Intern: Andrew Duran MD, PhD CLIA Number: [id number] Performed By: #### F T4, TSH #### [address] [address] Injection Operator: Gideon Bullock MD MTHFR SPECIMEN Whole Blood Normal [facility] Comment on above: Performed By: #### F T4, TSH #### [address] [address] Injection Operator: Gideon Bullock MD AFP, Maternalon 10-11-2023 Determined by Ultrasound [facility] Comment on above: Performed By: #### F T4, TSH #### [address] [address] Injection Operator: Gideon Bullock MD Due Date SEE NOTE Normal [facility] Comment on above: Result Comment: Resu lts for Estimated Due Date: 02 26 24 Performed By: #### F T4, TSH #### [address] [address] Injection Operator: Gideon Bullock MD Family History No Normal [facility] Comment on above: Performed By: #### F T4, TSH #### [address] [address] Injection Operator: Gideon Bullock MD Gestat Age (exact) 20 wks, 0 days Normal [facility] Comment on above: Performed By: #### F T4, TSH #### [address] [address] Injection Operator: Gideon Bullock MD Ins Req Matern Diab Yes Normal [facility] Comment on above: Performed By: #### F T4, TSH #### [address] [address] Injection Operator: Gideon Bullock MD Interpretation Screen Neg Normal [facility] Comment on above: Result Comment: (NOT E) INTERPRETATION: SCREEN NEGATIVE for open spina bifida Neural Tube Defects (NTD) Negative Pre-Test Post-Test Cutoff Neural Tube Defects Risks 1:258 1:1320 1:250 Comments: The risk of an open neural tube defect is less than the screening cut-off. The information provided indicates that the patient had insulin-dependent diabetes at the time of conception. Due to diabetic status, the risk of neural tube defect is increased 4 times. This test was developed and its performance characteristics determined by [facility] [facility]. It has not been cleared or approved by the [place] Food and Drug Administration. This test was performed in a CLIA certified laboratory and is intended for clinical purposes. Performed By: #### F T4, TSH #### [address] [address] Injection Operator: Gideon Bullock MD [age] [facility] Comment on above: Performed By: #### F T4, TSH #### [address] [address] Injection Operator: Gideon Bullock MD Maternal Race Nonblack [facility] Comment on above: Performed By: #### F T4, TSH #### [address] [address] Injection Operator: Gideon Bullock MD Maternal Weight 298.0 lbs. [facility] Comment on above: Performed By: #### F T4, TSH #### [facility] [address] [place] [address] Injection Operator: Gideon Bullock MD MoM for AFP 1.29 [facility] Comment on above: Performed By: #### F T4, TSH #### [address] [address] Injection Operator: Gideon Bullock MD Number of Fetuses Rodriguez Normal [facility] Comment on above: Performed By: #### F T4, TSH #### [address] [address] Injection Operator: Gideon Bullock MD Patient's AFP 39 ng/mL Normal [facility] Comment on above: Performed By: #### F T4, TSH #### [facility] [address] [place] [address] Injection Operator: Gideon Bullock MD Smoking No Normal [facility] Comment on above: Performed By: #### F T4, TSH #### [facility] [address] [place] [address] Injection Operator: Gideon Bullock MD Specimen See Note Normal [facility] Comment on above: Result Comment: (NOT E) Initial sample Performed By: [facility] [address] [place] [address] Audit Intern: Andrew Duran MD, PhD CLIA Number: [id number] Performed By: #### F T4, TSH #### [address] [address] Injection Operator: Gideon Bullock MD AFP, Maternalon 10-10-2023 Current Smoking NO Normal [facility] Comment on above: Performed By: #### F T4, TSH #### [address] [address] Injection Operator: Gideon Bullock MD Dating US Normal [facility] Comment on above: Performed By: #### F T4, TSH #### [facility] [address] [place] [address] Injection Operator: Gideon Bullock MD Diabetic YES Normal [facility] Comment on above: Performed By: #### F T4, TSH #### [facility] [address] [place] [address] Injection Operator: Gideon Bullock MD Donor Egg NO Normal [facility] Comment on above: Performed By: #### F T4, TSH #### [facility] [address] [place] [address] Injection Operator: Gideon Bullock MD Estimated Due Date [facility] Comment on above: Performed By: #### F T4, TSH #### [address] [address] Injection Operator: Gideon Bullock MD Family History NONE [facility] Comment on above: Performed By: #### F T4, TSH #### [address] [address] Injection Operator: Gideon Bullock MD In Vitro Fertalizat NO [facility] Comment on above: Performed By: #### F T4, TSH #### [address] [address] Injection Operator: Gideon Bullock MD LMP date [facility] Comment on above: Performed By: #### F T4, TSH #### [address] [address] Injection Operator: Gideon Bullock MD Maternal date [facility] Comment on above: Performed By: #### F T4, TSH #### [address] [address] Injection Operator: Gideon Bullock MD Maternal Weight 298 [facility] Comment on above: Performed By: #### F T4, TSH #### [facility] [address] [place] [address] Injection Operator: Gideon Bullock MD Monochorionic Twins NO [facility] Comment on above: Performed By: #### F T4, TSH #### [address] [address] Injection Operator: Gideon Bullock MD Patient Weight Units LB [facility] Comment on above: Performed By: #### F T4, TSH #### [facility] [place] [address] Injection Operator: Gideon Bullock MD Race (Maternal) NON BLACK Normal [facility] Comment on above: Performed By: #### F T4, TSH #### [address] [address] Injection Operator: Gideon Bullock MD Repeat Specimen NO Normal [facility] Comment on above: Performed By: #### F T4, TSH #### [facility] [address] [place] [address] Injection Operator: Gideon Bullock MD Valproic/Carbamazep NONE Normal [facility] Comment on above: Performed By: #### F T4, TSH #### [address] [address] Injection Operator: Gideon Bullock MD Antithrombin III [place] 10-09 Antithrombin III Act 110 % Normal 83-122 [facility] Comment on above: Result Comment: Patients receiving Hirudin may have a falsely decreased Antitrombin III Activity. Performed By: #### P ROSAC, FT4, AT3A, HOCYS, GLYHGB, TSH, LUPPRO, PROCAC #### [address] [address] Injection Operator: Gideon Bullock MD #### AF5MUT, AMTHFR, APTMUT #### [facility] [address] [place] [address] Injection Operator: Fantasma Wood MD #### AAFPM #### [address] [address] Injection Operator: Gideon Bullock MD [facility] [address] [place] [address] Injection Operator: Fantasma Wood MD Lupus Anticoagulanton 2023 Anticardiolipin IgA 1.8 APL Normal 0.0-14.0 [facility] Comment on above: Result Comment: Reference Range: <14.0 Negative 14.0-20.0 Equivocal >20.0 Positive When results are Equivocal, it is recommended to retest after 4-6 weeks. Performed By: #### P ROSAC, FT4, AT3A, HOCYS, GLYHGB, TSH, LUPPRO, PROCAC #### [facility] [address] [place] [address] Injection Operator: Gideon Bullock MD #### AF5MUT, AMTHFR, APTMUT #### [facility] [address] [place] [address] [phone] Injection Operator: Fantasma Wood MD #### AAFPM #### [address] [address] Injection Operator: Gideon Bullock MD [address] [phone] Injection Operator: Fantasma Wood MD Anticardiolipin IgG <0.5 Normal 0.0-10.0 [facility] Comment on above: Result Comment: Reference Range: <10.0 Negative 10.0-40.0 Equivocal >40.0 Positive Performed By: #### P ROSAC, FT4, AT3A, HOCYS, GLYHGB, TSH, LUPPRO, PROCAC #### [facility] [address] [place] [address] Injection Operator: Gideon Bullock MD #### AF5MUT, AMTHFR, APTMUT #### [facility] [address] [place], [place] [phone] Injection Operator: Fantasma Wood MD #### AAFPM #### [address] [address] Injection Operator: Gideon Bullock MD [address] [phone] Injection Operator: Fantasma Wood MD Anticardiolipin IgM <0.8 Normal 0.0-10.0 [facility] Comment on above: Result Comment: Reference Range: <10.0 Negative 10.0-40.0 Equivocal >40.0 Positive Performed By: #### P ROSAC, FT4, AT3A, HOCYS, GLYHGB, TSH, LUPPRO, PROCAC #### [address] [address] Injection Operator: Gideon Bullock MD #### AF5MUT, AMTHFR, APTMUT #### [facility] [address] [place] [address] Injection Operator: Fantasma Wood MD #### AAFPM #### [address] [address] Injection Operator: Gideon Bullock MD [address] [address] Injection Operator: Fantasma Wodo MD Dilute Heladio Viper Negative Normal [facility] Comment on above: Performed By: #### P ROSAC, FT4, AT3A, HOCYS, GLYHGB, TSH, LUPPRO, PROCAC #### [address] [address] Injection Operator: Gideon Bullock MD #### AF5MUT, AMTHFR, APTMUT #### [facility] [address] [place] [address] Injection Operator: Fantasma Wood MD #### AAFPM #### [address] [address] Injection Operator: Gideon Bullock MD [address] [address] Injection Operator: Fantasma Wood MD Protein C Activityon 024 Protein C Activity 136 % Normal >80 [facility] Comment on above: Result Comment: Patients on warfarin will have decreased functional protein C/S values. Warfarin therapy should be discontinued for two weeks for accurate measurement of functional protein C/S levels. Artifactually elevated levels of functional protein C/S may be seen in patients receiving heparin,rivaroxaban,apixaban,edozaban,and dabiqatran. Decreased functionality may be seen in patients with abnormally elevated levels of Factor VIII. Performed By: #### P ROSAC, FT4, AT3A, HOCYS, GLYHGB, TSH, LUPPRO, PROCAC #### [facility] [address] [place] [address] Injection Operator: Gideon Bullock MD #### AF5MUT, AMTHFR, APTMUT #### [facility] [address] [place] [address] Injection Operator: Fantasma Wood MD #### AAFPM #### [address] [address] Injection Operator: Gideon Bullock MD [facility] [address] [place] [address] Injection Operator: Fantasma Wood MD Protein S Activityon 024 Protein S Activity 68 % Normal 59-130 [facility] Comment on above: Result Comment: Patients on warfarin will have decreased functional protein C/S values. Warfarin therapy should be discontinued for two weeks for accurate measurement of functional protein C/S levels. Artifactually elevated levels of functional protein C/S may be seen in patients receiving heparin,rivaroxaban,apixaban,edozaban,and dabiqatran. Decreased functionality may be seen in patients with abnormally elevated levels of Factor VIII. Performed By: #### P ROSAC, FT4, AT3A, HOCYS, GLYHGB, TSH, LUPPRO, PROCAC #### [facility] [address] [place] [address] Injection Operator: Gideon Bullock MD #### AF5MUT, AMTHFR, APTMUT #### [facility] [address] [place] [address] Injection Operator: Fantasma Wood MD #### AAFPM #### [facility] [address] [place] [address] Injection Operator: Gideon Bullock MD [facility] [address] [place], [place] [phone] Injection Operator: Fantasma Wood MD Hemoglobin A1Con 10-09-2023 Glucose [Mass/Vol] 103 mg/dL Normal [facility] Comment on above: Result Comment: The ADA and AACC recommend providing the estimated average glucose result to permit better patient understanding of their HBA1c result. Performed By: #### P ROSAC, FT4, AT3A, HOCYS, GLYHGB, TSH, LUPPRO, PROCAC #### [facility] [address] [place] [address] Injection Operator: Gideon Bullock MD #### AF5MUT, AMTHFR, APTMUT #### [facility] [address] [place] [address] Injection Operator: Fantasma Wood MD #### AAFPM #### [address] [address] Injection Operator: Gideon Bullock MD [facility] [address] [place] [address] [phone] Injection Operator: Fantasma Wood MD HbA1c (Bld) [Mass fraction] 5.2 % Normal 4.0-6.0 [facility] Comment on above: Performed By: #### P ROSAC, FT4, AT3A, HOCYS, GLYHGB, TSH, LUPPRO, PROCAC #### [facility] [address] [place] [address] Injection Operator: Gideon Bullock MD #### AF5MUT, AMTHFR, APTMUT #### [facility] [address] [place] [address] Injection Operator: Fantasma Wood MD #### AAFPM #### [facility] [address] [place] [address] Injection Operator: Gideon Bullock MD [facility] [address] [place], [place] [phone] Injection Operator: Fantasma Wood MD Homocysteineon 10-09-2023 Homocysteine 4.3 umol/L Normal 0.0-15.0 [facility] Comment on above: Performed By: #### P ROSAC, FT4, AT3A, HOCYS, GLYHGB, TSH, LUPPRO, PROCAC #### [address] [address] Injection Operator: Gideon Bullock MD #### AF5MUT, AMTHFR, APTMUT #### [facility] [address] [place], [place] [phone] Injection Operator: Fantasma Wood MD #### AAFPM #### [address] [address] Injection Operator: Gideon Bullock MD [address] [phone] Injection Operator: Fantasma Wood MD Lupus Anticoagulanton 7 aPTT Coag (Bld) [Time] 27.5 s Normal 23.0-36.5 [facility] Comment on above: Result Comment: IV Heparin Therapy Range: 66.0-92.0 sec Performed By: #### P ROSAC, FT4, AT3A, HOCYS, GLYHGB, TSH, LUPPRO, PROCAC #### [address] [address] Injection Operator: Gideon Bullock MD #### AF5MUT, AMTHFR, APTMUT #### [facility] [address] [place], [place] [phone] Injection Operator: Fantasma Wood MD #### AAFPM #### [address] [address] Injection Operator: Gideon Bullock MD [address] [place] [address] Injection Operator: Fantasma Wood MD INR Coag (PPP) [Relative time] 1.0 {INR} Normal [facility] Comment on above: Result Comment: Therapeutic Range: Moderate Anticoagulant Intensity: INR = 2.0-3.0 High Anticoagulant Intensity: INR = 2.5-3.5 Performed By: #### P ROSAC, FT4, AT3A, HOCYS, GLYHGB, TSH, LUPPRO, PROCAC #### [address] [address] Injection Operator: Gideon Bullock MD #### AF5MUT, AMTHFR, APTMUT #### [address] [phone] Injection Operator: Fantasma Wood MD #### AAFPM #### [address] [address] Injection Operator: Gideon Bullock MD [address] [phone] Injection Operator: Fantasma Wood MD PT Coag (PPP) [Time] 13.1 s Normal 11.7-14.9 [facility] Comment on above: Performed By: #### P ROSAC, FT4, AT3A, HOCYS, GLYHGB, TSH, LUPPRO, PROCAC #### [address] [address] Injection Operator: Gideon Bullock MD #### AF5MUT, AMTHFR, APTMUT #### [address] [phone] Injection Operator: Fantasma Wood MD #### AAFPM #### [address] [phone] Injection Operator: Gideon Bullock MD [address] [phone] Injection Operator: Fantasma Wood MD Protein,Tot,Alba Uron 2023 Creatinine [Mass/Vol] 120.0 mg/dL Normal 28.0-217.0 [facility] Comment on above: Performed By: #### F T4, TSH #### [address] [address] Injection Operator: Gideon Bullock MD Tot Prot. Conc. 10 mg/dL Normal [facility] Comment on above: Result Comment: No n ormal range established. Performed By: #### F T4, TSH #### [address] [address] Injection Operator: Gideon Bullock MD TP/Cre Ratio 0.08 Normal [facility] Comment on above: Performed By: #### F T4, TSH #### [address] [address] Injection Operator: Gideon Bullock MD Thyroid Stim. Horm.on 2023 Thyroid Stim. Horm. 2.35 uIU/mL Normal 0.27-4.20 [facility] Comment on above: Performed By: #### P ROSAC, FT4, AT3A, HOCYS, GLYHGB, TSH, LUPPRO, PROCAC #### [address] [address] Injection Operator: Gideon Bullock MD #### AF5MUT, AMTHFR, APTMUT #### [facility] [address] [place] [address] Injection Operator: Fantasma Wood MD #### AAFPM #### [address] [address] Injection Operator: Gideon Bullock MD [facility] [address] [place] [address] Injection Operator: Fantasma Wood MD Thyroxine, Freeon 10-09-2023 Thyroxine, Free 0.9 ng/dL Low 0.92-1.68 [facility] Comment on above: Performed By: #### P ROSAC, FT4, AT3A, HOCYS, GLYHGB, TSH, LUPPRO, PROCAC #### [facility] [address] [place] [address] Injection Operator: Gideon Bullock MD #### AF5MUT, AMTHFR, APTMUT #### [facility] [address] [place], [place] [phone] Injection Operator: Fantasma Wood MD #### AAFPM #### [facility] [address] [place], [place] [phone] Injection Operator: Gideon Bullock MD [facility] [address] [place] [address] Injection Operator: Fantasma Wood MD XR FOOT RT MIN 3 VWSon 09-09 XR FOOT RT MIN 3 VWS XR FOOT RT MIN 3 VW S XR FOOT RT MIN 3 VWS Clinical history:5th metatarsal pain acute foot pain Comparison: 11/24/2016 Findings: No acute process fracture or dislocation. Alignment and mineralization appear to be within normal limits. Impression: No evidence of acute osseous abnormality. Finalized by Brigido Blas MD on 09/10/2023 12:57 PM Normal [facility] MR BRAIN W WO CONTon 06-14-2 024 MR BRAIN W WO CONT MR BRAIN W WO CONT HISTORY: A 33-year-old female with the history of the facial paresthesia. Migraine headaches and arachnoid cyst. TECHNIQUE: Multiplanar and multisequence MRI examination of brain is performed without and with intravenous contrast administration. COMPARISON: Comparison is made with MRI examination of brain of 11/10/[address] scan of brain of 05/16/2023. FINDINGS: The ventricular system is normal in size and configuration. There is normal differentiation of roque and white matters. Diffusion-weighted study demonstrates no evidence of restricted diffusion to suggest acute or subacute age of infarction. There is no evidence of intracranial mass, hemorrhage or acute pathology. The cerebellum and brainstem are unremarkable. There is a partial empty sella. Both optic nerves are tortuous. Minimal CSF around the optic nerves. No mass effect, midline shift of the structures or extra-axial fluid collections are noted. Postcontrast examination reveals no abnormal meningeal or parenchymal enhancement. Both distal internal carotid and vertebrobasilar arteries are patent. Dural venous sinuses are patent. There is asymmetry of the transverse sinuses, left being smaller than the right. No focal stenosis is identified. Visualized paranasal sinuses and mastoid air cells are clear. IMPRESSION: * No evidence of intracranial mass, abnormal enhancing lesion or acute pathology. * Partial empty sella and asymmetrical transverse sinuses. Idiopathic intracranial hypertension, though less likely, cannot be excluded. A clinical correlation is suggested. Finalized by Prashanth Rice MD on 06/14/2023 8:30 AM Normal [facility] BASIC METABOLIC PANLon 05-16 Anion gap [Moles/Vol] 10 mmol/L Normal 5-15 [facility] Comment on above: Performed By: #### B PHYLLIS CBCA #### [facility] ([id number]) [address] [place] [address] Calcium [Mass/Vol] 8.9 mg/dL Normal 8.5-10.5 [facility] Comment on above: Performed By: #### B PHYLLIS CBCA #### [facility] ([id number]) [address] [place] [address] Chloride [Moles/Vol] 107 mmol/L Normal 98-109 [facility] Comment on above: Performed By: #### B PHYLLIS, CBCA #### [facility] ([id number]) [address] [place] [address]46 CO2 [Moles/Vol] 18 mmol/L Low 22-32 [facility] Comment on above: Performed By: #### B PHYLLIS, CBCA #### [facility] ([id number]) [address] [place] [address] Creatinine [Mass/Vol] 0.58 mg/dL Normal 0.40-1.00 [facility] Comment on above: Result Comment: METH OD TRACEABLE TO IDMS STANDARD Performed By: #### B PHYLLIS CBCA #### [facility] ([id number]) [address] [place] [address] eGFR (CKD-EPI) NON-RACE DEPENDENT >90 Normal >59 [facility] Comment on above: Result Comment: Reported eGFR is based on the CKD-EPI 2020 equation that does not use a race coefficient. Performed By: #### B PHYLLIS CBCA #### [facility] ([id number]) [address] [place] [address] Glucose [Mass/Vol] 109 mg/dL High 65-99 [facility] Comment on above: Performed By: #### B PHYLLIS CBCA #### [facility] ([id number]) [address] [place] [address] Potassium [Moles/Vol] 3.3 mmol/L Low 3.5-5.0 [facility] Comment on above: Performed By: #### B PHYLLIS CBCA #### [facility] ([id number]) [address] [place] [address] Sodium [Moles/Vol] 135 mmol/L Normal 134-146 [facility] Comment on above: Performed By: #### B PHYLLIS CBCA #### [facility] ([id number]) [address] [place] [address]86 Urea nitrogen [Mass/Vol] 16 mg/dL Normal 5-23 [facility] Comment on above: Performed By: #### B PHYLLIS CBCA #### [facility] ([id number]) [address] [place] [address] CBC AND AUTO DIFFon 05-16-19 24 ABSOLUTE BASOPHIL 0.1 X10E9/L Normal 0.0-0.2 [facility] Comment on above: Performed By: #### B PHYLLIS CBCA #### [facility] ([id number]) [address] [place] [address] ABSOLUTE NEUTROPHIL 4.6 X10E9/L Normal 1.5-6.6 [facility] Comment on above: Performed By: #### B MP, CBCA #### [facility] ([id number]) [address] [place] [address] Basophils/100 WBC (Bld) 0.7 % Normal [facility] Comment on above: Performed By: #### B MP, CBCA #### [facility] ([id number]) [address] [place] [address] Eosinophils (Bld) [#/Vol] 0.3 10*3/uL Normal 0.0-0.4 [facility] Comment on above: Performed By: #### B MP, CBCA #### [facility] ([id number]) [address] [place] [address] Eosinophils/100 WBC (Bld) 4.4 % Normal [facility] Comment on above: Performed By: #### B PHYLLIS, CBCA #### [facility] ([id number]) [address] [place] [address] Erythrocyte distribution width (RBC) [Ratio] 13.3 % Normal 11.5-15.0 [facility] Comment on above: Performed By: #### B MP, CBCA #### [facility] ([id number]) [address] [place] [address] Hematocrit (Bld) [Volume fraction] 40.5 % Normal 35-47 [facility] Comment on above: Performed By: #### B MP, CBCA #### [facility] ([id number]) [address] [place] [address] Hemoglobin (Bld) [Mass/Vol] 13.8 g/dL Normal 11.7-15.5 [facility] Comment on above: Performed By: #### B MP, CBCA #### [facility] ([id number]) [address] [place] [address] Lymphocytes (Bld) [#/Vol] 2.0 10*3/uL Normal 1.0-3.5 [facility] Comment on above: Performed By: #### B MP, CBCA #### [facility] ([id number]) [address] [place] [address] Lymphocytes/100 WBC (Bld) 26.3 % Normal [facility] Comment on above: Performed By: #### B PHYLLIS, CBCA #### [facility] ([id number]) [address] [place] [address] MCH (RBC) [Entitic mass] 27.9 pg Normal 27-34 [facility] Comment on above: Performed By: #### B PHYLLIS, CBCA #### [facility] ([id number]) [address] [place] [address] 83471 MCHC (RBC) [Mass/Vol] 34.0 g/dL Normal 32-36 [facility] Comment on above: Performed By: #### B PHYLLIS, CBCA #### [facility] ([id number]) [address] [place] [address]31 MCV (RBC) [Entitic vol] 82 fL Normal 80-100 [facility] Comment on above: Performed By: #### B MP, CBCA #### [facility] ([id number]) [address] [place] [address] Monocytes (Bld) [#/Vol] 0.5 10*3/uL Normal 0-0.9 [facility] Comment on above: Performed By: #### B MP, CBCA #### [facility] ([id number]) [address] [place] [address] 95509 Monocytes/100 WBC (Bld) 6.9 % Normal [facility] Comment on above: Performed By: #### B PHYLLIS, CBCA #### [facility] ([id number]) [address] [place] [address]75 Neutrophils/100 WBC (Bld) 61.7 % Normal [facility] Comment on above: Performed By: #### B PHYLLIS, CBCA #### [facility] ([id number]) [address] [place] [address]16 Platelet mean volume (Bld) [Entitic vol] 8.4 fL Normal 7-12 [facility] Comment on above: Performed By: #### B PHYLLIS, CBCA #### [facility] ([id number]) [address] [place] [address]242 Platelets (Bld) [#/Vol] 247 10*3/uL Normal 150-450 [facility] Comment on above: Performed By: #### B PHYLLIS, CBCA #### [facility] ([id number]) [address] [place] [address] 57084 RBC COUNT 4.93 X10E12/L Normal 3.80-5.20 [facility] Comment on above: Performed By: #### B PHYLLIS, CBCA #### [facility] ([id number]) [address] [place] [address] 12974 WBC (Bld) [#/Vol] 7.5 10*3/uL Normal 4.0-11.0 [facility] Comment on above: Performed By: #### B PHYLLIS, CBCA #### [facility] ([id number]) [address] [place] [address] BRAIN WO CONTon CT BRAIN WO CONT CT BRAIN WO [...] Leon MD on 05/16/2023 10:57 AM Normal [facility] HCG ( test) Ql (U)o n 05-16-2023 Beta HCG ( test) Ql (U) Negative Normal NEG [facility] Comment on above: Performed By: #### 2 106-3 #### [facility] ([id number]) [address] [place] [address]09 URN MACROSCOPIC NURon 2023 BILIRUBIN TADEO Negative Normal [facility] Comment on above: Performed By: #### N UM #### [facility] ([id number]) [address] [place] [address] 87797 BLOOD/HGB TADEO Negative Normal [facility] Comment on above: Performed By: #### N UM #### [facility] ([id number]) [address] [place] [address] 18256 GLUCOSE TADEO Negative Normal [facility] Comment on above: Performed By: #### N UM #### [facility] ([id number]) [address] [place] [address] 88973 KETONES TADEO Negative Normal [facility] Comment on above: Performed By: #### N UM #### [facility] ([id number]) [address] [place] [address] 00199 LEUKOCYTE ESTERASE TADEO Negative Normal [facility] Comment on above: Performed By: #### N UM #### [facility] ([id number]) [address] [place] [address] 39983 NITRITE TADEO Negative Normal NEG [facility] Comment on above: Performed By: #### N UM #### [facility] ([id number]) [address] [place] [address] 49505 PH TADEO 6.5 Normal 5.0-8.5 [facility] Comment on above: Performed By: #### N UM #### [facility] ([id number]) [address] [place] [address] 68560 PROTEIN TADEO Negative Normal NEG [facility] Comment on above: Performed By: #### N UM #### [facility] ([id number]) [address] [place] [address] 16857 SPECIFIC GRAVITY TADEO 1.025 Normal 1.003-1.035 [facility] Comment on above: Performed By: #### N UM #### [facility] ([id number]) [address] [place] [address] 42692 UROBILINOGEN TADEO 0.2 eu/dL Normal <1.1 [facility] Comment on above: Performed By: #### N UM #### [facility] ([id number]) [address] [place] [address]648 COVID + FLU Quick Testingon 02-05-2023 SARS-CoV-2 (COVID-19) RNA SARANYA+probe Ql (Unsp spec) Negative [employer] [facility] [employer] Other COVID + FLU Quick Testing Negative [employer] Other Aerobic Cultureon 12-22-2022 Aerobic Culture Comment tube 2 No Growth 2 Days Comment tube 2 No Anaerobes Isolated 3 Days Comment tube 2 Gram Stain Result No White Blood Cells Seen No Bacteria Seen PERFORMED BY: [place] [address] [place] [address] PATHOLOGIST CANDLE POURER ALLEN COATES M.D. [facility] Comment on above: Performed By: #### C BC, PT, PTT #### [facility] [address] [place] [address] CSF PCR Panelon 12-22-2022 CSF PCR Panel [...] Varicella zoster virus Not detected PERFORMED BY: [place] [address] PATHOLOGIST CANDLE POURER ALLEN COATES M.D. [facility] Comment on above: Performed By: #### C SF PCR PANEL #### [address] Cell Count Differential,CSFo n 12-22-2022 Appearance, CSF Clear Normal Clear [facility] Comment on above: Order Comment: Comme nt tube 1 Performed By: #### C SFCCDIFF #2, CSF TP #2, CSF GLU #2, CSF GLU, CSF TP, GS, AERC, CSFCCDIFF #### [facility] [address] [place] [address] Order Comment: Comme nt tube 4 Color, CSF Colorless Normal Colorless [facility] Comment on above: Order Comment: Comme nt tube 1 Performed By: #### C SFCCDIFF #2, CSF TP #2, CSF GLU #2, CSF GLU, CSF TP, GS, AERC, CSFCCDIFF #### [address] Order Comment: Comme nt tube 4 CSF Supernatant Color Colorless Normal Colorless [facility] Comment on above: Order Comment: Comme nt tube 1 Performed By: #### C SFCCDIFF #2, CSF TP #2, CSF GLU #2, CSF GLU, CSF TP, GS, AERC, CSFCCDIFF #### [facility] [address] Order Comment: Comme nt tube 4 CSF Volume, Total 29.4 mL Normal [facility] Comment on above: Order Comment: Comme nt tube 1 Performed By: #### C SFCCDIFF #2, CSF TP #2, CSF GLU #2, CSF GLU, CSF TP, GS, AERC, CSFCCDIFF #### [facility] [address] Order Comment: Comme nt tube 4 Lymphocytes, CSF 4 [facility] Comment on above: Order Comment: Comme nt tube 1 Result Comment: The reference interval and other method performance specifications have not been established for this body fluid. The test result must be integrated into the clinical context for interpretation. Performed By: #### C SFCCDIFF #2, CSF TP #2, CSF GLU #2, CSF GLU, CSF TP, GS, AERC, CSFCCDIFF #### [facility] [address] [place] [address] RBC, CSF 2 /uL [facility] Comment on above: Order Comment: Comme nt tube 1 Result Comment: The reference interval and other method performance specifications have not been established for this body fluid. The test result must be integrated into the clinical context for interpretation. Performed By: #### C SFCCDIFF #2, CSF TP #2, CSF GLU #2, CSF GLU, CSF TP, GS, AERC, CSFCCDIFF #### [facility] [address] [place] [address] TNC, CSF 1 /uL Normal 0-5 [facility] Comment on above: Order Comment: Comme nt tube 1 Performed By: #### C SFCCDIFF #2, CSF TP #2, CSF GLU #2, CSF GLU, CSF TP, GS, AERC, CSFCCDIFF #### [facility] [address] [place] [address] Order Comment: Comme nt tube 4 Tube Number Tested, CSF Tube Number: 1 Normal [facility] Comment on above: Order Comment: Comme nt tube 1 Result Comment: PERF ORMED BY: [place] [address] PATHOLOGIST CANDLE POURER ALLEN COATES M.D. Performed By: #### C SFCCDIFF #2, CSF TP #2, CSF GLU #2, CSF GLU, CSF TP, GS, AERC, CSFCCDIFF #### [address] Cell Count Differential,CSF #2on 12-22-2022 Lymphocytes, CSF 7 Normal [facility] Comment on above: Order Comment: Comme nt tube 4 Result Comment: The reference interval and other method performance specifications have not been established for this body fluid. The test result must be integrated into the clinical context for interpretation. Performed By: #### C SFCCDIFF #2, CSF TP #2, CSF GLU #2, CSF GLU, CSF TP, GS, AERC, CSFCCDIFF #### [address] RBC, CSF 1 /uL Normal [facility] Comment on above: Order Comment: Comme nt tube 4 Result Comment: The reference interval and other method performance specifications have not been established for this body fluid. The test result must be integrated into the clinical context for interpretation. Performed By: #### C SFCCDIFF #2, CSF TP #2, CSF GLU #2, CSF GLU, CSF TP, GS, AERC, CSFCCDIFF #### [address] Tube Number Tested, CSF Tube Number: 4 Normal [facility] Comment on above: Order Comment: Comme nt tube 4 Result Comment: PERF ORMED BY: [place] [address] PATHOLOGIST CANDLE POURER ALLEN COATES M.D. Performed By: #### C SFCCDIFF #2, CSF TP #2, CSF GLU #2, CSF GLU, CSF TP, GS, AERC, CSFCCDIFF #### [address] Cerebrospinal fluid post-adams trifugation appearance determinationOrdered By: Razia Muller on 12-22-2022 Appearance (Spun CSF) Colorless Colorless [facility] Cerebrospinal fluid sample t ube volume measurementOrdered By: Razia Muller on 12-22-2022 Specimen volume (CSF) 29.4 mL [facility] Color CSFOrdered By: Razia longo on 12-22-2022 Color (CSF) Colorless Colorless [facility] Glucose, CSF #2on 12-22-2022 Glucose, CSF #2 71 mg/dL High 40-70 [facility] Comment on above: Order Comment: Comme nt tube 4 Performed By: #### C BC, PT, PTT #### [facility] [address] [place] [address] [place] Glucose, Spinal Fluidon 09-0 Glucose, Spinal Fluid 73 mg/dL High 40-70 [facility] Comment on above: Order Comment: Comme nt tube 1 Performed By: #### C SFCCDIFF #2, CSF TP #2, CSF GLU #2, CSF GLU, CSF TP, GS, AERC, CSFCCDIFF #### [facility] [address] [place] [address] Gram Stainon 12-22-2022 Microscopic observation Gram stain Nom (Unsp spec) Comment tube 2 Gram Stain Result No White Blood Cells Seen No Bacteria Seen PERFORMED BY: [place] [address] PATHOLOGIST CANDLE POURER ALLEN COATES M.D. [facility] Comment on above: Performed By: #### C SFCCDIFF #2, CSF TP #2, CSF GLU #2, CSF GLU, CSF TP, GS, AERC, CSFCCDIFF #### [facility] [address] [place] [address] IR guided lumbar puncture LP on 12-22-2022 IR guided lumbar puncture LP [facility] [place] [address] [place] [address] Interventional Radiology Rpt Signed Patient: Yani Stevens MR#: [id number] : 1990 Acct:[id number] Age/Sex: 32 / F ADM Date: 12/22/22 Loc: XD Room: Type: [facility] Attending Dr: Razia EVANGELISTA Copies to: TONJA [...] Vernon Lin M.D.12/22/2022 1:07 PM Dictation Location: [place] [address] Transcribed By: [facility] 12/22/22 7593 Dictated By: Vernon Lin II, MD 12/22/22 7359 Signed By: 12/22/22 1302 [facility] 12-22-2022 L ---- Specimen: [id number] Received: 12/22/22 Status: TERRANCE Perla Num: [id number] Spec Type: Cytology Subm Dr: TONJA Jimenez Tissues: A CSF (CSF) Procedures: Cyto Prepstain, DIFF QMONSE BURRIS Age/ Patient Sex Location Account Attending Physician Yani Stevens 32/F XD [id number] TONJA Jimenez SPEC NUM: [id number] RECD: 12/22/22 STATUS: TERRANCE PERLA NUM: [id number] TOMASA: 12/22/22 [facility] DR: JON Jimenez-Kaushik ENTERED: 12/22/22 [facility] DR: Vernon Lin II, MD SPEC TYPE: Cytology DEPT: [facility] ENTERED BY: [id number] RECV BY: [id number] ORDERED: Cyto Prepstain, DIFF QWIK, PAPSTN ORDERED: [...] (SS/nh) Specimen: [id number] Received: 12/22/22 Status: TERRANCE [place] Num: [id number] Spec Type: Cytology Subm Dr: JON Jimenez-C Tissues: A CSF (CSF) Procedures: Cyto Prepstain, DIFF QWIK, PAPSTN Patient: Yani Stevens [id number] (Continued) Signed (signature on file) Dimas De Anda MD 12/26/22 0905 Normal [facility] Manual cerebrospinal fluid e rythrocytes count (number/volume)Ordered By: Razia Muller on 12-22-2022 RBC Manual cnt (CSF) [#/Vol] 1 /uL [facility] Comment on above: The reference interv al and other method performance specifications have not been established for this body fluid. The test result must be integrated into the clinical context for interpretation. No Panel InformationOrdered By: Razia Muller on 12-22-2022 CSF Appearance Clear Clear [facility] CSF Eosinophils N/A [facility] CSF Lymphocytes 7 [facility] Comment on above: The reference interv al and other method performance specifications have not been established for this body fluid. The test result must be integrated into the clinical context for interpretation. CSF Monocytes N/A [facility] CSF Neutrophils N/A [facility] CSF Tube Number Tube number: 4 [facility] Nucleated cells [#/volume] i n Cerebral spinal fluid by Manual countOrdered By: Razia Muller on 12-22-2022 Nucleated cells Manual cnt (CSF) [#/Vol] 0.001 10*3/uL 0-5 [facility] Total Protein, CSF #2on Total Protein, CSF #2 31 mg/dL Normal 15-45 [facility] Comment on above: Order Comment: Comme nt tube 4 Result Comment: PERF ORMED BY: [place] [address] PATHOLOGIST CANDLE POURER ALLEN COATES M.D. Performed By: #### C BC, PT, PTT #### [facility] [address] [place] [address] Total Protein, Spinal Fluido n 12-22-2022 Total Protein, Spinal Fluid 34 mg/dL Normal 15-45 [facility] Comment on above: Order Comment: Comme nt tube 1 Result Comment: PERF ORMED BY: [place] [address] PATHOLOGIST CANDLE POURER ALLEN COATES M.D. Performed By: #### C BC, PT, PTT #### [facility] [address] [place] [address] Activated partial thrombopla stin time (aPTT) in platelet poor plasma by coagulation aOrdered By: Razia Muller on 12-20-2022 aPTT Coag (PPP) [Time] 32.8 s 25.1-36.5 [facility] Basophils Auto (Bld) [#/Vol] Ordered By: Razia Muller on 12-20-2022 Basophils (Bld) [#/Vol] 0.0 10*3/uL 0.0-0.2 [facility] Basophils/100 WBC Auto (Bld) Ordered By: Razia Muller on 12-20-2022 Basophils/100 WBC (Bld) 0.5 % . [facility] Complete Blood Count Auto Di ffon 12-20-2022 Basophils (Bld) [#/Vol] 0.0 10*3/uL Normal 0.0-0.2 [facility] Comment on above: Result Comment: PERF ORMED BY: [place] [address] PATHOLOGIST CANDLE POURER ALLEN COATES M.D. Performed By: #### C BC, PT, PTT #### [facility] [address] [place] [address] Basophils/100 WBC (Bld) 0.5 % Normal . [facility] Comment on above: Performed By: #### C BC, PT, PTT #### [facility] [address] [place] [address] [place] Eosinophils (Bld) [#/Vol] 0.2 10*3/uL Normal 0.0-0.45 [facility] Comment on above: Performed By: #### C BC, PT, PTT #### [facility] [address] [place] [address] [place] Eosinophils/100 WBC (Bld) 3.2 % Normal . [facility] Comment on above: Performed By: #### C BC, PT, PTT #### [facility] [address] [place] [address] Erythrocyte distribution width (RBC) [Ratio] 13.9 % Normal 11.9-15.3 [facility] Comment on above: Performed By: #### C BC, PT, PTT #### [address] Hematocrit (Bld) [Volume fraction] 40.9 % Normal 34.0-46.4 [facility] Comment on above: Performed By: #### C BC, PT, PTT #### [place] [address] [place] Hemoglobin (Bld) [Mass/Vol] 13.6 g/dL Normal 11.8-15.4 [facility] Comment on above: Performed By: #### C BC, PT, PTT #### [facility] [address] [place] [address] [place] Lymphocytes (Bld) [#/Vol] 2.1 10*3/uL Normal 1.00-4.8 [facility] Comment on above: Performed By: #### C BC, PT, PTT #### [facility] [address] [place] [address] [place] Lymphocytes/100 WBC (Bld) 29.1 % Normal . [facility] Comment on above: Performed By: #### C BC, PT, PTT #### [facility] [address] [place] [address] MCH (RBC) [Entitic mass] 27.6 pg Normal 24.7-34.3 [facility] Comment on above: Performed By: #### C BC, PT, PTT #### [facility] [address] MCV (RBC) [Entitic vol] 83.0 fL Normal 80-100 [facility] Comment on above: Performed By: #### C BC, PT, PTT #### [facility] [address] Mean Corpuscular HGB Conc 33.2 g/dL Normal 32.0-35.0 [facility] Comment on above: Performed By: #### C BC, PT, PTT #### [facility] [address] [place] [address] [place] Monocytes (Bld) [#/Vol] 0.5 10*3/uL Normal 0.0-0.8 [facility] Comment on above: Performed By: #### C BC, PT, PTT #### [facility] [address] [place] [address] [place] Monocytes/100 WBC (Bld) 6.3 % Normal . [facility] Comment on above: Performed By: #### C BC, PT, PTT #### [facility] [address] [place] [address] [place] Neutrophils (Bld) [#/Vol] 4.4 10*3/uL Normal 1.8-7.7 [facility] Comment on above: Performed By: #### C BC, PT, PTT #### [facility] [address] [place] [address] [place] Neutrophils/100 WBC (Bld) 60.9 % Normal . [facility] Comment on above: Performed By: #### C BC, PT, PTT #### [facility] [address] [place] [address] [place] NRBC% 0.1 /100{WBC} Normal 0-0.5 [facility] Comment on above: Performed By: #### C BC, PT, PTT #### [facility] [address] Platelet mean volume (Bld) [Entitic vol] 8.1 fL Normal 6.3-10.7 [facility] Comment on above: Performed By: #### C BC, PT, PTT #### [facility] [address] Platelets (Bld) [#/Vol] 222 10*3/uL Normal 150-450 [facility] Comment on above: Performed By: #### C BC, PT, PTT #### [facility] [address] RBC (Bld) [#/Vol] 4.93 10*6/uL Normal 3.60-5.00 [facility] Comment on above: Performed By: #### C BC, PT, PTT #### [facility] [address] WBC (Bld) [#/Vol] 7.3 10*3/uL Normal 3.8-11.6 [facility] Comment on above: Performed By: #### C BC, PT, PTT #### [facility] [address] Eosinophils Auto (Bld) [#/Vo l]Ordered By: Razia Muller on 12-20-2022 Eosinophils (Bld) [#/Vol] 0.2 10*3/uL 0.0-0.45 [facility] Eosinophils/100 WBC Auto (Bl d)Ordered By: Razia Muller on 12-20-2022 Eosinophils/100 WBC (Bld) 3.2 % . [facility] Erythrocyte distribution wid th Auto (RBC) [Ratio]Ordered By: Razia Muller on 12-20-2022 Erythrocyte distribution width (RBC) [Ratio] 13.9 % 11.9-15.3 [facility] Hematocrit Auto (Bld) [Volum e fraction]Ordered By: Razia Muller on 12-20-2022 Hematocrit (Bld) [Volume fraction] 40.9 % 34.0-46.4 [facility] Hemoglobin [Mass/volume] in BloodOrdered By: Razia Muller on 12-20-2022 Hemoglobin (Bld) [Mass/Vol] 13.6 g/dL 11.8-15.4 [facility] INR in Platelet poor plasma by Coagulation assayOrdered By: Razia Muller on 12-20-2022 INR Coag (PPP) [Relative time] 1.0 {INR} [facility] Comment on above: INR Therapeutic Rang e [...] PT Coag (PPP) [Time] 11.1 s 9.0-12.9 [facility] Leukocytes [#/volume] correc burke for nucleated erythrocytes in Blood by Automated counOrdered By: Razia Muller on 12-20-2022 WBC corrected for nucl RBC Auto (Bld) [#/Vol] 7.3 10*3/uL 3.8-11.6 [facility] Lymphocytes Auto (Bld) [#/Vo l]Ordered By: Razia Muller on 12-20-2022 Lymphocytes (Bld) [#/Vol] 2.1 10*3/uL 1.00-4.8 [facility] Lymphocytes/100 WBC Auto (Bl d)Ordered By: Razia Muller on 12-20-2022 Lymphocytes/100 WBC (Bld) 29.1 % . [facility] MCH Auto (RBC) [Entitic mass ]Ordered By: Razia Muller on 12-20-2022 MCH (RBC) [Entitic mass] 27.6 pg 24.7-34.3 [facility] MCHC Auto (RBC) [Mass/Vol]Or dered By: Razia Muller on 12-20-2022 MCHC (RBC) [Mass/Vol] 33.2 g/dL 32.0-35.0 [facility] MCV Auto (RBC) [Entitic vol] Ordered By: Razia Muller on 12-20-2022 MCV (RBC) [Entitic vol] 83.0 fL 80-100 [facility] Monocytes Auto (Bld) [#/Vol] Ordered By: Razia Muller on 12-20-2022 Monocytes (Bld) [#/Vol] 0.5 10*3/uL 0.0-0.8 [facility] Monocytes/100 WBC Auto (Bld) Ordered By: Razia Muller on 12-20-2022 Monocytes/100 WBC (Bld) 6.3 % . [facility] Neutrophils Auto (Bld) [#/Vo l]Ordered By: Razia Muller on 12-20-2022 Neutrophils (Bld) [#/Vol] 4.4 10*3/uL 1.8-7.7 [facility] Neutrophils/100 WBC Auto (Bl d)Ordered By: Razia Muller on 12-20-2022 Neutrophils/100 WBC (Bld) 60.9 % . [facility] Nucleated erythrocytes [Pres ence] in Blood by Automated countOrdered By: Razia Muller on 12-20-2022 Nucleated RBC Auto Ql (Bld) 0.1 /100{WBC} 0-0.5 [facility] Partial Thromboplastin Timeo n 12-20-2022 aPTT Coag (Bld) [Time] 32.8 s Normal 25.1-36.5 [facility] Comment on above: Result Comment: PERF ORMED BY: [place] [address] PATHOLOGIST CANDLE POURER ALLEN COATES M.D. Performed By: #### C BC, PT, PTT #### [facility] [address] [place] [address] Platelet mean volume Auto (B ld) [Entitic vol]Ordered By: Razia Muller on 12-20-2022 Platelet mean volume (Bld) [Entitic vol] 8.1 fL 6.3-10.7 [facility] Platelets Auto (Bld) [#/Vol] Ordered By: Razia Muller on 12-20-2022 Platelets (Bld) [#/Vol] 222 10*3/uL 150-450 [facility] Prothrombin Time INRon 12-20 INR Coag (PPP) [Relative time] 1.0 {INR} Normal [facility] Comment on above: Result Comment: INR Therapeutic [...] By: #### C BC, PT, PTT #### [facility] [address] PT Coag (PPP) [Time] 11.1 s Normal 9.0-12.9 [facility] Comment on above: Performed By: #### C BC, PT, PTT #### [facility] [address] RBC Auto (Bld) [#/Vol]Ordere d By: Razia Muller on 12-20-2022 RBC (Bld) [#/Vol] 4.93 10*6/uL 3.60-5.00 [facility] WBC Auto (Bld) [#/Vol]Ordere d By: Razia Muller on 12-20-2022 WBC (Bld) [#/Vol] 7.3 10*3/uL 3.8-11.6 [facility] POC Glucose Fingerstickon Glucose [Mass/Vol] 85 mg/dL 65 - 105 mg/dL [facility] C.trachomatis N.gonorrhoeae DNA, Urineon 07-21-2022 Chlamydia sp DNA SARANYA+probe Ql (U) Negative NEGATIVE [facility] Comment on above: CHLAMYDIA TRACHOMATI S DNA [...] gonorrhoeae DNA SARANYA+probe Ql (U) Negative NEGATIVE [facility] Comment on above: NEISSERIA GONORRHOEA E DNA [...] alternative nucleic acid target. Specimen Description .URINE [facility] CBC auto differentialon 06-23 Absolute Eos # [facility] Absolute Immature Granulocyte 0.12 [facility] Absolute Lymph # 1.21 [facility] Absolute Letcher # 0.69 [facility] Basophils (Bld) [#/Vol] 0.03 10*3/uL [facility] Basophils/100 WBC (Bld) 0 % 0 - 2 % [facility] Eosinophils/100 WBC (Bld) 0 % Low 1 - 4 % [facility] Hematocrit (Bld) [Volume fraction] 33.5 % Low 36.3 - 47.1 % [facility] Hemoglobin (Bld) [Mass/Vol] 10.8 g/dL Low 11.9 - 15.1 g/dL [facility] Immature granulocytes/100 WBC (Bld) 1 % High 0 [facility] Interpretation and review of laboratory results Abnormal [facility] Lymphocytes/100 WBC (Bld) 8 % Low 24 - 43 % [facility] MCH (RBC) [Entitic mass] 28.4 pg 25.2 - 33.5 pg [facility] MCHC (RBC) [Mass/Vol] 32.2 g/dL 28.4 - 34.8 g/dL [facility] MCV (RBC) [Entitic vol] 88.2 fL 82.6 - 102.9 fL [facility] Monocytes/100 WBC (Bld) 4 % 3 - 12 % [facility] NRBC Automated 0.0 0.0 per 100 WBC [facility] Platelet distribution width (Bld) [Ratio] 13.2 % 11.8 - 14.4 % [facility] Platelet mean volume (Bld) [Entitic vol] 10.5 fL 8.1 - 13.5 fL [facility] Platelets (Bld) [#/Vol] 197 10*3/uL [facility] RBC (Bld) [#/Vol] 3.80 10*6/uL Low 3.95 - 5.1 1 m/uL [facility] Segmented neutrophils/100 WBC (Bld) 87 % High 36 - 65 % [facility] Segs Absolute 13.58 High [facility] WBC (Bld) [#/Vol] 15.6 10*3/uL High [facility] Culture, Urineon 07-21-2022 Microorganism identified Cx Nom (Unsp spec) NO SIGNIFICANT GROWTH [facility] Specimen Description .CLEAN CATCH URINE [facility] POC Glucose Fingerstickon Glucose [Mass/Vol] 108 mg/dL High 65 - 105 mg/dL [facility] Interpretation and review of laboratory results Abnormal [facility] Glucose [Mass/Vol] 95 mg/dL 65 - 105 mg/dL [facility] Glucose [Mass/Vol] 123 mg/dL High 65 - 105 mg/dL [facility] Interpretation and review of laboratory results Abnormal [facility] CBCon 07-20-2022 Hematocrit (Bld) [Volume fraction] 32.8 % Low 36.3 - 47.1 % [facility] Hemoglobin (Bld) [Mass/Vol] 11.0 g/dL Low 11.9 - 15.1 g/dL [facility] Interpretation and review of laboratory results Abnormal [facility] MCH (RBC) [Entitic mass] 28.6 pg 25.2 - 33.5 pg [facility] MCHC (RBC) [Mass/Vol] 33.5 g/dL 28.4 - 34.8 g/dL [facility] MCV (RBC) [Entitic vol] 85.4 fL 82.6 - 102.9 fL [facility] NRBC Automated 0.0 0.0 per 100 WBC [facility] Platelet distribution width (Bld) [Ratio] 13.2 % 11.8 - 14.4 % [facility] Platelet mean volume (Bld) [Entitic vol] 10.8 fL 8.1 - 13.5 fL [facility] Platelets (Bld) [#/Vol] 200 10*3/uL [facility] RBC (Bld) [#/Vol] 3.84 10*6/uL Low 3.95 - 5.1 1 m/uL [facility] WBC (Bld) [#/Vol] 10.2 10*3/uL [facility] Comprehensive Metabolic Pane mary 07-20-2022 Albumin [Mass/Vol] 3.3 g/dL Low 3.5 - 5.2 g/dL [facility] Albumin/Globulin [Mass ratio] 1.0 {ratio} 1.0 - 2.5 [facility] ALP [Catalytic activity/Vol] 142 U/L High 35 - 104 U/L [facility] ALT [Catalytic activity/Vol] 15 U/L 5 - 33 U/L [facility] Anion gap [Moles/Vol] 12 mmol/L 9 - 17 mmol/L [facility] AST [Catalytic activity/Vol] 15 U/L NINF - 32 U/L [facility] Bilirubin [Mass/Vol] mg/dL Low 0.3 - 1 .2 mg/dL [facility] Calcium [Mass/Vol] 9.0 mg/dL 8.6 - 10. 4 mg/dL [facility] Chloride [Moles/Vol] 104 mmol/L 98 - 10 7 mmol/L [facility] CO2 [Moles/Vol] 21 mmol/L 20 - 31 mmol/L [facility] Creatinine [Mass/Vol] 0.41 mg/dL Low 0.50 - 0.90 mg/dL [facility] GFR/1.73 sq M.predicted MDRD (S/P/Bld) [Vol rate/Area] - PINF [facility] Comment on above: These results are not [...] 135 mg/dL High 70 - 99 mg/dL [facility] [employer] Interpretation and review of laboratory results Abnormal [facility] Potassium [Moles/Vol] 3.8 mmol/L 3.7 - 5.3 mmol/L [employer] [facility] Protein [Mass/Vol] 6.5 g/dL 6.4 - 8.3 g/dL [facility] Sodium [Moles/Vol] 137 mmol/L 135 - 144 mmol/L [facility] Urea nitrogen [Mass/Vol] 8 mg/dL 6 - 20 mg/dL [facility] DRUG SCREEN MULTI URINEon Amphetamine Screen, Ur Negative NEGATIVE [facility] Comment on above: (Positive cutoff 1000 ng/mL) Barbiturate Screen, Ur Negative NEGATIVE [facility] Comment on above: (Positive cutoff 200 ng/mL) Benzodiazepine Screen, Urine Negative NEGATIVE [facility] Comment on above: (Positive cutoff 200 ng/mL) Cannabinoid Scrn, Ur Negative NEGATIVE [facility] Comment on above: (Positive cutoff 50 ng/mL) Cocaine Metabolite, Urine Negative NEGATIVE [facility] Comment on above: (Positive cutoff 300 ng/mL) Fentanyl, Ur Negative NEGATIVE [facility] Comment on above: (Positive cutoff 5 ng/ml) Methadone Screen, Urine Negative NEGATIVE [facility] Comment on above: (Positive cutoff 300 ng/mL) Opiates, Urine Negative NEGATIVE [employer] [facility] Comment on above: (Positive cutoff 300 ng/mL) Oxycodone Screen, Ur Negative NEGATIVE [facility] Comment on above: (Positive cutoff 100 ng/mL) Phencyclidine, Urine Negative NEGATIVE [facility] Comment on above: (Positive cutoff 25 ng/mL) Test Information Assay provides medic al screening only. The absence of expected drug(s) and/or metabolite(s) may indicate diluted or adulterated urine, limitations of testing or timing of collection. [facility] Comment on above: Testing for legal pu rposes should be confirmed by another method. To request confirmation of test result, please call the lab within 7 days of sample submission. [facility] GROUP B STREP CULTUREon 06-23 S. agalactiae Ag Ql (Unsp spec) Culture Observations: NEGATIVE FOR GROUP B STREPTOCOCCUS. Normal [facility] Comment on above: Performed By: #### [id number] #### [facility] [address] [address] [address] Valeria Farris POC Glucose Fingerstickon Glucose [Mass/Vol] 116 mg/dL High 65 - 105 mg/dL [facility] Interpretation and review of laboratory results Abnormal [facility] Protein / creatinine ratio, urineon 07-20-2022 Creatinine, Ur 95.9 mg/dL 28.0 - 217.0 mg/dL [facility] Protein (U) [Mass/Vol] 17 mg/dL [facility] Comment on above: No normal range esta blished. Urine Total Protein Creatinine Ratio 0.18 0.00 - 0.20 [facility] T. pallidum Abon 07-20-2022 T. pallidum Ab IA Ql (S) Non-Reactive NONREACTIVE [facility] Comment on above: T. pallidum antibodies are not detected. There is no serological evidence of infection with T. pallidum (early primary syphilis cannot be excluded). Retest in 2-4 weeks if syphilis is clinically suspect. [facility] TYPE AND SCREENon 07-20-2022 ABO/Rh Positive [facility] Arm Band Number BE [id number] [facility] Expiration Date 07/23/2022,5992 [facility] US CHINYERE DOP LEG LTon 07-20-19 23 US CHINYERE DOP LEG LT EXAMINATION: US [...] by: GERARD GONZALEZ Date: 2022-07-19 15:06 Normal [facility] COVID + FLU Quick Testingon 07-18-2022 SARS-CoV-2 (COVID-19) RNA SARANYA+probe Ql (Unsp spec) Negative [employer] Other COVID + FLU Quick Testing Negative [employer] Other Quick Strepon 07-18-2022 S. pyogenes Org specific cx Ql (Throat) Negative [employer] Other Quick Strep [employer] Other US PREG BIOPHY W NON STRESSo [...] by: GERARD GONZALEZ Date: 2022-07-17 15:56 Normal [facility] Brain Natriuretic Peptideon 07-15-2022 Natriuretic peptide B (Bld) [Mass/Vol] pg/mL NINF - 300 pg/mL [facility] Comment on above: An age-independent cutoff point of 300 pg/ml has a 98% negative predictive value excluding acute heart failure. [facility] [employer] Comprehensive metabolic pane mary 07-15-2022 Albumin [Mass/Vol] 3.4 g/dL Low 3.5 - 5.2 g/dL [facility] Albumin/Globulin [Mass ratio] 1.0 {ratio} 1.0 - 2.5 [facility]Folder[facility] ALP [Catalytic activity/Vol] 138 U/L High 35 - 104 U/L [facility] ALT [Catalytic activity/Vol] 16 U/L 5 - 33 U/L [facility] Anion gap [Moles/Vol] 12 mmol/L 9 - 17 mmol/L [facility] AST [Catalytic activity/Vol] 23 U/L NINF - 32 U/L [facility] Bilirubin [Mass/Vol] mg/dL Low 0.3 - 1 .2 mg/dL [facility] Calcium [Mass/Vol] 8.9 mg/dL 8.6 - 10. 4 mg/dL [facility] Chloride [Moles/Vol] 102 mmol/L 98 - 10 7 mmol/L [facility] CO2 [Moles/Vol] 19 mmol/L Low 20 - 31 mmol/L [facility] Creatinine [Mass/Vol] 0.38 mg/dL Low 0.50 - 0.90 mg/dL [facility] GFR/1.73 sq M.predicted MDRD (S/P/Bld) [Vol rate/Area] - PINF [facility] Comment on above: These results are not [...] 131 mg/dL High 70 - 99 mg/dL [facility] Interpretation and review of laboratory results Abnormal [facility] Potassium [Moles/Vol] 3.5 mmol/L Low 3.7 - 5.3 mmol/L [facility] Protein [Mass/Vol] 6.7 g/dL 6.4 - 8.3 g/dL [facility] Sodium [Moles/Vol] 133 mmol/L Low 135 - 144 mmol/L [facility] Urea nitrogen [Mass/Vol] 9 mg/dL 6 - 20 mg/dL [facility] HIV Screenon 07-15-2022 HIV 1+2 Ab+HIV1 p24 Ag IA Ql Non-Reactive NONREACTIVE [facility] Comment on above: No laboratory eviden ce of HIV infection. If acute HIV infection is suspected, consider testing for HIV-1 RNA. [facility] Protein / Creatinine Ratio, Urineon 07-15-2022 Creatinine, Ur 33.5 mg/dL 28.0 - 217.0 mg/dL [facility] [employer] Protein (U) [Mass/Vol] 5 mg/dL [facility] [employer] Comment on above: No normal range esta blished. Urine Total Protein Creatinine Ratio 0.15 0.00 - 0.20 [facility] [employer] TYPE AND SCREENon 07-15-2022 ABO/Rh Positive [facility] Arm Band Number BE [id number] [facility] [employer] Expiration Date 07/18/2022,2359 [facility] Troponinon 07-15-2022 Troponin I.cardiac DL <= 0.01 ng/mL [Mass/Vol] ng/L 0 - 14 ng/L [facility] [employer] Comment on above: High Sensitivity Tro ponin values cannot be compared with other Troponin methodologies. [facility] [employer] XR CHEST (SINGLE VIEW FRONTA L)on 07-15-2022 No acute process. [facility] RIS CONSOLIDATED EXAMINATION: ONE XRAY VIEW OF THE CHEST 07/15/2022 4:26 pm COMPARISON: None. HISTORY: ORDERING SYSTEM PROVIDED HISTORY: shortness of breath TECHNOLOGIST PROVIDED HISTORY: Concerns for COVID shortness of breath FINDINGS: The lungs are without acute focal process. There is no effusion or pneumothorax. The cardiomediastinal silhouette is without acute process. The osseous structures are without acute process. [facility] CONSOLIDATED Abner Dela Cruz MD - [...] without acute process. IMPRESSION: No acute process. 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 Valeria Farris Clarity (U) CLEAR Normal CLEAR [facility] Comment on above: Performed By: #### [id number] #### [facility] [address] [address] [address] Valeria Farris Color (U) LT. YELLOW Normal YELLOW [facility] Comment on above: Performed By: #### [id number] #### [facility] [address] [place] [address] Dr. Valeria Farris Glucose Ql (U) Negative Normal NEGATIVE [facility] Comment on above: Performed By: #### [id number] #### [facility] [address] [place] [address] Dr. Valeria Farris Hemoglobin Ql (U) LARGE Abnormal NEGATIVE [facility] Comment on above: Performed By: #### [id number] #### [facility] [address] [place] [address] Dr. Valeria Farris Ketones Ql (U) Negative Normal NEGATIVE [facility] Comment on above: Performed By: #### [id number] #### [facility] [address] [place] [address] Dr. Valeria Farris LEUKOCYTES Negative Normal NEGATIVE [facility] Comment on above: Performed By: #### [id number] #### [facility] [address] [place] [address] Dr. Valeria Farris Nitrite Ql (U) Negative Normal NEGATIVE [facility] Comment on above: Performed By: #### [id number] #### [facility] [address] [place] [address] Dr. Valeria Farris pH (U) 6.5 [pH] Normal 5-9 [facility] Comment on above: Performed By: #### [id number] #### [facility] [address] [place] [address] Dr. Valeria Farris SPEC GRAVITY <=1.005 Abnormal 1.005-<=1.02 5 [facility] Comment on above: Performed By: #### [id number] #### [facility] [address] [place] [address] Dr. Valeria Farris UA PROTEIN Negative Normal NEGATIVE/ TRACE [facility] Comment on above: Performed By: #### [id number] #### [facility] [address] [place] [address] Dr. Valeria Farris UR MICRO IND INDICATED Normal [facility] Comment on above: Performed By: #### [id number] #### [facility] [address] [place] [address] Dr. Valeria Farris Urobilinogen Qn (U) 0.2 {Manolo'U}/dL Normal 0.2 - 1. 0 [facility] Comment on above: Performed By: #### [id number] #### [facility] [address] [place] [address] Dr. Valeria Farris URINE MICROSCOPIC ONLYon BACTERIA NONE SEEN Normal NONE SEEN [facility] Comment on above: Performed By: #### [id number] #### [facility] [address] [place] [address] Dr. Valeria Farris Bacteria identified Cx Nom (U) NOT INDICATED Normal [facility] Comment on above: Performed By: #### [id number] #### [facility] [address] [place] [address] Dr. Valeria Farris CAST NONE SEEN Normal NONE SEEN [facility] Comment on above: Performed By: #### [id number] #### [facility] [address] [place] [address] Dr. Valeria Farris Crystals LM Nom (Urine sed) NONE SEEN Normal NONE SEEN [facility] Comment on above: Performed By: #### [id number] #### [facility] [address] [place] [address] Dr. Valeria Farris Epithelial cells LM Ql (Urine sed) FEW Abnormal NONE SEEN /RARE [facility] Comment on above: Performed By: #### 4 [id number] #### [facility] [address] [place] [address] Dr. Valeria Farris MUCOUS NONE SEEN Normal NONE SEEN [facility] Comment on above: Performed By: #### [id number] #### [facility] [address] [place] [address] Dr. Valeria Farris RBC 5-10 Abnormal 0-2 [facility] Comment on above: Performed By: #### [id number] #### [facility] [address] [place] [address] Dr. Valeria Farris WBC 0-2 Abnormal NONE SEEN [facility] Comment on above: Performed By: #### 4 [id number] #### [facility] [address] [address] [address] Valeria Farris No Panel Informationon 06-29 [facility] T4, Freeon 06-29-2022 Free T4 [Mass/Vol] 0.82 ng/dL Low 0.93 - 1. 70 ng/dL [facility] Interpretation and review of laboratory results Abnormal [facility] TSHon 06-29-2022 TSH Qn 2.16 m[IU]/L [facility] US PREG BIOPHY W NON STRESSo n [...] by: ALINE GALICIA Date: 2022-06-26 07:50 Normal [facility] US PREG BIOPHY W NON STRESSo n [...] GERARD GONZALEZ Date: 2022-06-19 15:28 Normal [facility] CREATININE CLEARon 3 BODY SURF AREA 2.35 Normal [facility] Comment on above: Performed By: #### U ACSTRUPTI, DAPHNE #### [facility] [address] [address] [address] Valeria Farris CREA CLEARANCE 128.94 ml/min Critically high 75.00-115.00 [facility] Comment on above: Performed By: #### U ZAID LANDEROSICRO #### [facility] [address] [place] [address] Dr. Valeria Farris CREA, 24 HR UR 882.73 mg/24 hr Normal 800.00-1,8 00 .00 [facility] Comment on above: Performed By: #### U ACSTRUPTI UMICRO #### [facility] [address] [place] [address] Dr. Valeria Farris Creatinine [Mass/Vol] 0.35 mg/dL Critically low 0.55-1.02 [facility] Comment on above: Performed By: #### U ZAID LANDEROSICRO #### [facility] [address] [place] [address] Dr. Valeria Farris URINE CREAT 21.53 mg/dL Normal 20.00-300.00 [facility] Comment on above: Performed By: #### ZAID SUNICRO #### [facility] [address] [place] [address] Dr. Valeria Farris PROTEIN 24HR URINEon 023 T PROT, 24 HR UR 241.9 mg/24 hr Critically high <=149.1 [facility] Comment on above: Performed By: #### P [id number] #### [facility] [address] [place] [address] Dr. Valeria Farirs UR PROT 5.9 mg/dL Normal <=11.9 [facility] Comment on above: Performed By: #### P ROT24U #### [facility] [address] [place] [address] Dr. Valeria Farris UR TOT VOL 4100 ml/24 HR Normal [facility] Comment on above: Performed By: #### P ROT24U #### [facility] [address] [place] [address] Dr. Valeria Farris Performed By: #### U ACSTRUPTI UMICRO #### [facility] [address] [place] [address] Dr. Valeria Farris CBC AUTO DIFFon 06-17-2022 BASO # 0.0 103/ul Normal 0.0-0.1 [facility] Comment on above: Performed By: #### G LU1HR #### [facility] [address] [address] [address] Valeria Farris Basophils/100 WBC (Bld) 0.4 % Normal 0.2-2.0 [facility] Comment on above: Performed By: #### G LU1HR #### [facility] [address] [address] [address] Valeria Farris EO # 0.2 103/ul Normal 0.0-0.7 [facility] Comment on above: Performed By: #### G LU1HR #### [facility] [address] [place] [address] Dr. Valeria Farris Eosinophils/100 WBC (Bld) 2.0 % Normal 0.9-7.0 [facility] Comment on above: Performed By: #### G LU1HR #### [facility] [address] [place] [address] Dr. Valeria Farris Erythrocyte distribution width (RBC) [Ratio] 13.3 % Normal 11.0-15.0 [facility] Comment on above: Performed By: #### G LU1HR #### [facility] [address] [place] [address] Dr. Valeria Farris Hematocrit (Bld) [Volume fraction] 31.8 % Critically low 36.0-48.0 [facility] Comment on above: Performed By: #### G LU1HR #### [facility] [address] [place] [address] Dr. Valeria Farrsi Hemoglobin (Bld) [Mass/Vol] 10.8 g/dL Critically low 12.0-16.0 [facility] Comment on above: Performed By: #### G LU1HR #### [facility] [address] [place] [address] Dr. Valeria Farris IG # 0.09 10e3/ul Critically high 0.00-0.[address] [facility] Comment on above: Performed By: #### G LU1HR #### [facility] [address] [address] [address] Valeria Farris IG % 0.8 % Critically high 0.0-0.5 [facility] Comment on above: Performed By: #### G LU1HR #### [facility] [address] [address] [address] Valeria Farris LYMPH # 2.2 103/ul Normal 1.2-3.8 [facility] Comment on above: Performed By: #### G LU1HR #### [facility] [address] [address] [address] Valeria Farris Lymphocytes/100 WBC (Bld) 20.0 % Critically low 20.5-60.0 [facility] Comment on above: Performed By: #### G LU1HR #### [facility] [address] [place] [address] Dr. Valeria Farris MANUAL DIFF REQ NO Normal [facility] Comment on above: Performed By: #### G LU1HR #### [facility] [address] [place] [address] Dr. Valeria Farris MCH (RBC) [Entitic mass] 28.4 pg Normal 26.7-34.0 [facility] Comment on above: Performed By: #### G LU1HR #### [facility] [address] [place] [address] Dr. Valeria Farris MCHC (RBC) [Mass/Vol] 34.0 g/dL Normal 29.9-35.2 [facility] Comment on above: Performed By: #### G LU1HR #### [facility] [address] [place] [address] Dr. Valeria Farris MCV (RBC) [Entitic vol] 83.7 fL Normal 81.0-99.0 [facility] Comment on above: Performed By: #### G LU1HR #### [facility] [address] [place] [address] Dr. Valeria Farris MONO # 0.9 103/ul Critically high 0.3-0.8 [facility] Comment on above: Performed By: #### G LU1HR #### [facility] [address] [address] [address] Valeria Farris Monocytes/100 WBC (Bld) 7.9 % Normal 1.7-12.0 [facility] Comment on above: Performed By: #### G LU1HR #### [facility] [address] [place] [address] Dr. Valeria Farris NEUT # 7.7 103/ul Critically high 1.4-6.5 [facility] Comment on above: Performed By: #### G LU1HR #### [facility] [address] [place] [address] Dr. Valeria Farris Neutrophils/100 WBC (Bld) 68.9 % Normal 43.0-75.0 [facility] Comment on above: Performed By: #### G LU1HR #### [facility] [address] [place] [address] Dr. Valeria Farris Platelet mean volume (Bld) [Entitic vol] 10.7 fL Normal 9.5-13.5 [facility] Comment on above: Performed By: #### G LU1HR #### [facility] [address] [place] [address] Dr. Valeria Farris PLT 195 103/ul Normal 150-450 [facility] Comment on above: Performed By: #### G LU1HR #### [facility] [address] [place] [address] Dr. Valeria Farris RBC 3.80 106/ul Critically low 4.20-5.40 [facility] Comment on above: Performed By: #### G LU1HR #### [facility] [address] [place] [address] Dr. Valeria Farris WBC 11.2 103/ul Critically high 4.0-11.0 [facility] Comment on above: Performed By: #### G LU1HR #### [facility] [address] [place] [address] Dr. Valeria Farris LDHon 06-17-2022 LDH 230 U/L Normal 81-234 [facility] Comment on above: Performed By: #### P ROT24U #### [facility] [address] [place] [address] Dr. Valeria Farris PROF 14(COMP METB)on 023 Albumin [Mass/Vol] 2.6 g/dL Critically low 3.4-5.0 [facility] Comment on above: Performed By: #### P ROT24U #### [facility] [address] [address] [address] Valeria Farris Albumin/Globulin [Mass ratio] 0.6 {ratio} Normal [facility] Comment on above: Performed By: #### P ROT24U #### [facility] [address] [place] [address] Dr. Valeria Farris ALP [Catalytic activity/Vol] 112 U/L Normal 46-116 [facility] Comment on above: Performed By: #### P ROT24U #### [facility] [address] [place] [address] Dr. Valeria Farris ALT [Catalytic activity/Vol] 18 U/L Normal 14-59 [facility] Comment on above: Performed By: #### P ROT24U #### [facility] [address] [place] [address] Dr. Valeria Farris Anion gap [Moles/Vol] 13.1 mmol/L Normal [facility] Comment on above: Performed By: #### P ROT24U #### [facility] [address] [place] [address] Dr. Valeria Farris AST [Catalytic activity/Vol] 22 U/L Normal 15-37 [facility] Comment on above: Performed By: #### P ROT24U #### [facility] [address] [place] [address] Dr. Valeria Farris Bilirubin [Mass/Vol] 0.2 mg/dL Normal 0.2-1.0 [facility] Comment on above: Performed By: #### P ROT24U #### [facility] [address] [place] [address] Dr. Valeria Farris Calcium [Mass/Vol] 9.1 mg/dL Normal 8.5-10.1 [facility] Comment on above: Performed By: #### P ROT24U #### [facility] [address] [address] [address] Valeria Farris Chloride [Moles/Vol] 103 mmol/L Normal 98-107 [facility] Comment on above: Performed By: #### P ROT24U #### [facility] [address] [address] [address] Valeria Farris CO2 [Moles/Vol] 25.8 mmol/L Normal 21.0-32.0 [facility] Comment on above: Performed By: #### P ROT24U #### [facility] [address] [address] [address] Valeria Farris Creatinine [Mass/Vol] 0.35 mg/dL Critically low 0.55-1.02 [facility] Comment on above: Performed By: #### P ROT24U #### [facility] [address] [address] [address] Valeria Farris EGFR-AF BENINESE >60 Normal >=60 [facility] Comment on above: Performed By: #### P ROT24U #### [facility] [address] [address] [address] Valeria Farris EGFR-NON AF BENINESE >60 Normal >=60 [facility] Comment on above: Performed By: #### P ROT24U #### [facility] [address] [address] [address] Valeria Farris Globulin (S) [Mass/Vol] 4.2 g/dL Normal [facility] Comment on above: Performed By: #### P ROT24U #### [facility] [address] [address] [address] Valeria Farris Glucose [Mass/Vol] 80 mg/dL Normal 74-106 [facility] Comment on above: Performed By: #### P ROT24U #### [facility] [address] [address] [address] Valeria Farris Potassium [Moles/Vol] 3.9 mmol/L Normal 3.5-5.1 [facility] Comment on above: Performed By: #### P ROT24U #### [facility] [address] [place] [address] Dr. Valeria Farris Protein [Mass/Vol] 6.8 g/dL Normal 6.4-8.2 [facility] Comment on above: Performed By: #### P ROT24U #### [facility] [address] [place] [address] Dr. Valeria Farris Sodium [Moles/Vol] 138 mmol/L Normal 136-145 [facility] Comment on above: Performed By: #### P ROT24U #### [facility] [address] [place] [address] Dr. Valeria Farris Urea nitrogen [Mass/Vol] 10.0 mg/dL Normal 7.0-18.0 [facility] Comment on above: Performed By: #### P ROT24U #### [facility] [address] [place] [address] Dr. Valeria Farris Urea nitrogen/Creatinine [Mass ratio] 28.6 mg/mg Normal [facility] Comment on above: Performed By: #### P ROT24U #### [facility] [address] [place] [address] Dr. Valeria Farris PTTon 06-17-2022 aPTT Coag (Bld) [Time] 26.4 s Normal 22.3-36.2 [facility] Comment on above: Performed By: #### P REGQNT #### [facility] [address] [place] [address] Dr. Valeria Farris UA (CLEAN/CATCH) BRIQUETTING MACHINE OPERATOR/MICRO I F IND.on 06-17-2022 Bilirubin Ql (U) Negative Normal NEGATIVE [facility] Comment on above: Performed By: #### P REGQNT #### [facility] [address] [place] [address] Dr. Valeria Farris Clarity (U) CLEAR Normal CLEAR [facility] Comment on above: Performed By: #### P REGQNT #### [facility] [address] [place] [address] Dr. Valeria Farris Color (U) LT. YELLOW Normal YELLOW [facility] Comment on above: Performed By: #### P REGQNT #### [facility] [address] [address] [address] Valeria Farris Glucose Ql (U) Negative Normal NEGATIVE [facility] Comment on above: Performed By: #### P REGQNT #### [facility] [address] [address] [address] Valeria Farris Hemoglobin Ql (U) Negative Normal NEGATIVE [facility] Comment on above: Performed By: #### P REGQNT #### [facility] [address] [address] [address] Valeria Farris Ketones Ql (U) Negative Normal NEGATIVE [facility] Comment on above: Performed By: #### P REGQNT #### [facility] [address] [place] [address] Dr. Valeria Farris LEUKOCYTES Negative Normal NEGATIVE [facility] Comment on above: Performed By: #### P REGQNT #### [facility] [address] [address] [address] Valeria Farris Nitrite Ql (U) Negative Normal NEGATIVE [facility] Comment on above: Performed By: #### P REGQNT #### [facility] [address] [address] [address] Valeria Farris pH (U) 6.5 [pH] Normal 5-9 [facility] Comment on above: Performed By: #### P REGQNT #### [facility] [address] [address] [address] Valeria Farris SPEC GRAVITY 1.010 Normal 1.005-<=1.02 5 [facility] Comment on above: Performed By: #### P REGQNT #### [facility] [address] [address] [address] Valeria Farris UA PROTEIN Negative Normal NEGATIVE/ TRACE [facility] Comment on above: Performed By: #### P REGQNT #### [facility] [address] [place] [address] Dr. Valeria Farris UR MICRO IND NOT INDICATED Normal [facility] Comment on above: Performed By: #### P REGQNT #### [facility] [address] [place] [address] Dr. Valeria Farris Urobilinogen Qn (U) 0.2 {Manolo'U}/dL Normal 0.2 - 1. 0 [facility] Comment on above: Performed By: #### P REGQNT #### [facility] [address] [place] [address] Dr. Valeria Farris URIC ACID SERUMon 06-17-2022 Urate [Mass/Vol] 3.3 mg/dL Normal 2.6-6.0 [facility] Comment on above: Performed By: #### P ROT24U #### [facility] [address] [place] [address] Dr. Valeria Farris PAP ACOG PANEL 2: 30 to 65on 05-29-2022 . . Normal [facility] Comment on above: Result Comment: Perf ormed at: WB Performed By: #### 4 [id number] #### [facility] [address] [place] [address] Dr. Valeria Farris Age Gdln ACOG Testing 30-65 Normal [facility] Comment on above: Performed By: #### [id number] #### [facility] [address] [place] [address] Dr. Valeria Farris DIAGNOSIS: Comment Normal [facility] Comment on above: Result Comment: NEGA TIVE FOR INTRAEPITHELIAL LESION OR MALIGNANCY. Performed at: WB Performed By: #### [id number] #### [facility] [address] [place] [address] Dr. Valeria Farris HPV Aptima Negative Normal Negative [facility] Comment on above: Result Comment: This nucleic acid amplification test detects fourteen high-risk HPV types (16,18,31,33,35,39,45,51,52,56,58,59,66,68) without differentiation. Performed at: =G Performed By: #### [id number] #### [facility] [address] [place] [address] Dr. Valeria Farris HPV Genotype Reflex Comment Normal [facility] Comment on above: Result Comment: Crit eria not met, HPV Genotype not performed. Performed at: WB Performed By: #### [id number] #### [facility] [address] [place] [address] Dr. Valeria Farris Methodology: Comment Normal [facility] Comment on above: Result Comment: This liquid based ThinPrep(R) pap test was screened with the use of an image guided system. Performed at: WB Performed By: #### [id number] #### [facility] [address] [place] [address] Dr. Valeria Farris Note: Comment Normal [facility] Comment on above: Result Comment: The Pap smear is a screening test designed to aid in the detection of premalignant and malignant conditions of the uterine cervix. It is not a diagnostic procedure and should not be used as the sole means of detecting cervical cancer. Both false-positive and false-negative reports do occur. . Performed at: WB Performed By: #### [id number] #### [facility] [address] [place] [address] Dr. Valeria Farris Performed by: Comment Normal [facility] Comment on above: Result Comment: Jaye Simmons, Athletic Field Custodian (ASCP) Performed at: WB Performed By: #### 4 [id number] #### [facility] [address] [place] [address] Dr. Valeria Farris Specimen adequacy: Comment Normal [facility] Comment on above: Result Comment: Sati sfactory for evaluation. Performed at: WB Performed By: #### [id number] #### [facility] [address] [place] [address] Dr. Valeria Farris POINT OF CARE GLUCOSEon - Glucose [Mass/Vol] 122 mg/dL Critically high 74-106 T [facility] Comment on above: Performed By: #### U DAPHNE LANDEROS #### [facility] [address] [place] [address] Dr. Valeria Farris UA (CLEAN/CATCH) BRIQUETTING MACHINE OPERATOR/MICRO I F IND.on 05-29-2022 Bilirubin Ql (U) Negative Normal NEGATIVE [facility] Comment on above: Performed By: #### U DAPHNE LANDEROS #### [facility] [address] [address] [address] Valeria Farris Clarity (U) CLEAR Normal CLEAR [facility] Comment on above: Performed By: #### U ACSIND, UMICRO #### [facility] [address] [address] [address] Valeria Farris Color (U) LT. YELLOW Normal YELLOW [facility] Comment on above: Performed By: #### U ACSIND, UMICRO #### [facility] [address] [address] [address] Valeria Farris Glucose Ql (U) Negative Normal NEGATIVE [facility] Comment on above: Performed By: #### U ACSIND, UMICRO #### [facility] [address] [place] [address] Dr. Valeria Farris Hemoglobin Ql (U) TRACE-INTACT Abnormal NEGATIVE [facility] Comment on above: Performed By: #### U ACSTRUPTI, UMICRO #### [facility] [address] [address] [address] Valeria Farris Ketones Ql (U) Negative Normal NEGATIVE [facility] Comment on above: Performed By: #### U ACSTRUPTI, UMICRO #### [facility] [address] [address] [address] Valeria Farris LEUKOCYTES Negative Normal NEGATIVE [facility] Comment on above: Performed By: #### U ACSTRUPTI, UMICRO #### [facility] [address] [address] [address] Valeria Farris Nitrite Ql (U) Negative Normal NEGATIVE [facility] Comment on above: Performed By: #### U ACSIND, UMICRO #### [facility] [address] [address] [address] Valeria Farris pH (U) 5.5 [pH] Normal 5-9 [facility] Comment on above: Performed By: #### U ACSIND, UMICRO #### [facility] [address] [address] [address] Valeria Farris SPEC GRAVITY 1.010 Normal 1.005-<=1.02 5 [facility] Comment on above: Performed By: #### U ACSIND, UMICRO #### [facility] [address] [place] [address] Dr. Valeria Farris UA PROTEIN Negative Normal NEGATIVE/ TRACE [facility] Comment on above: Performed By: #### U ACSIND, UMICRO #### [facility] [address] [place] [address] Dr. Valeria Farris UR MICRO IND INDICATED Normal [facility] Comment on above: Performed By: #### U ACSIND, UMICRO #### [facility] [address] [place] [address] Dr. Valeria Farris Urobilinogen Qn (U) 0.2 {Manolo'U}/dL Normal 0.2 - 1. 0 [facility] Comment on above: Performed By: #### U ACSIND, UMICRO #### [facility] [address] [place] [address] Dr. Valeria Farris URINE MICROSCOPIC ONLYon BACTERIA NONE SEEN Normal NONE SEEN [facility] Comment on above: Performed By: #### U ACSIND, ICRO #### [facility] [address] [place] [address] Dr. Valeria Farris Bacteria identified Cx Nom (U) NOT INDICATED Normal [facility] Comment on above: Performed By: #### U ACSIND, UMICRO #### [facility] [address] [place] [address] Dr. Valeria Farris CAST NONE SEEN Normal NONE SEEN [facility] Comment on above: Performed By: #### U ACSIND, UMICRO #### [facility] [address] [place] [address] Dr. Valeria Farris Crystals LM Nom (Urine sed) NONE SEEN Normal NONE SEEN [facility] Comment on above: Performed By: #### U ACSIND, UMICRO #### [facility] [address] [place] [address] Dr. Valeria Farris Epithelial cells LM Ql (Urine sed) FEW Abnormal NONE SEEN /RARE [facility] Comment on above: Performed By: #### U ACSIND, UMICRO #### [facility] [address] [place] [address] Dr. Valeria Farris MUCOUS NONE SEEN Normal NONE SEEN [facility] Comment on above: Performed By: #### U ACSTRUPTI UMICRO #### [facility] [address] [address] [address] Valeria Farris RBC 0-2 Normal 0-2 [facility] Comment on above: Performed By: #### U ACSTRUPTI ICRO #### [facility] [address] [place] [address] Dr. Valeria Farris WBC NONE SEEN Normal NONE SEEN [facility] Comment on above: Performed By: #### U LETI ICRO #### [facility] [address] [place] [address] Dr. Valeria Farris CHLAMYDIA/GONOCOCCUS SARANYA ( AB/URINE/PAPon 05-26-2022 Chlamydia trachomatis, SARANYA Negative Normal Negative [facility] Comment on above: Performed By: #### [id number] #### [facility] [address] [place] [address] Dr. Valeria Farris Neisseria gonorrhoeae, SARANYA Negative Normal Negative [facility] Comment on above: Performed By: #### [id number] #### [facility] [address] [place] [address] Dr. Valeria Farris AMYLASEon 05-25-2022 Amylase [Catalytic activity/Vol] 30 U/L Normal 25-115 [facility] Comment on above: Performed By: #### P [id number] #### [facility] [address] [place] [address] Dr. Valeria Farris CARDIAC VERNON 3-6on 3 CK [Catalytic activity/Vol] 119 U/L Normal 26-192 [facility] Comment on above: Performed By: #### P ROT24U #### [facility] [address] [place] [address] Dr. Valeria Farris CK.MB [Mass/Vol] ng/mL Normal <=3.60 [facility] Comment on above: Performed By: #### P ROT24U #### [facility] [address] [place] [address] Dr. Valeria Farris HSTROP <4.0 Normal 4.0-51.3 [facility] Comment on above: Result Comment: CUT- OFF POINTS HAVE BEEN ESTABLISHED BASED ON THE FOURTH UNIVERSAL DEFINITIONS OF MYOCARDIAL INFARCTION. THE UPPER REFERENCE LIMIT (URL) OF TROPONIN, DEFINED THE 99TH PERCENTILE OF cTnI DISTRIBUTION IN A REFERENCE POPULATION, HAS BEEN CONFIRMED THE DECISION THRESHOLD FOR OH DIAGNOSIS. Performed By: #### P [id number] #### [facility] [address] [place] [address] Dr. Valeria Farris CARDIAC VERNON ADMITon 023 CK [Catalytic activity/Vol] 121 U/L Normal 26-192 [facility] Comment on above: Performed By: #### P ROT24U #### [facility] [address] [place] [address] Dr. Valeria Farris CK.MB [Mass/Vol] 0.51 ng/mL Normal <=3.60 [facility] Comment on above: Performed By: #### P ROT24U #### [facility] [address] [place] [address] Dr. Valeria Farris HSTROP 4.1 pg/mL Normal 4.0-51.3 [facility] Comment on above: Result Comment: CUT- OFF POINTS HAVE BEEN ESTABLISHED BASED ON THE FOURTH UNIVERSAL DEFINITIONS OF MYOCARDIAL INFARCTION. THE UPPER REFERENCE LIMIT (URL) OF TROPONIN, DEFINED THE 99TH PERCENTILE OF cTnI DISTRIBUTION IN A REFERENCE POPULATION, HAS BEEN CONFIRMED THE DECISION THRESHOLD FOR [place] DIAGNOSIS. Performed By: #### P ROT24U #### [facility] [address] [place] [address] Dr. Valeria Farris MINI 19 ng/mL Normal 9-82 [facility] Comment on above: Performed By: #### P ROT24U #### [facility] [address] [place] [address] Dr. Valeria Farris CBC AUTO DIFFon 05-25-2022 BASO # 0.0 103/ul Normal 0.0-0.1 [facility] Comment on above: Performed By: #### [id number] #### [facility] [address] [place] [address] Dr. Valeria Farris Basophils/100 WBC (Bld) 0.2 % Normal 0.2-2.0 [facility] Comment on above: Performed By: #### 4 [id number] #### [facility] [address] [place] [address] Dr. Valeria Farris EO # 0.1 103/ul Normal 0.0-0.7 [facility] Comment on above: Performed By: #### 4 [id number] #### [facility] [address] [place] [address] Dr. Valeria Farris Eosinophils/100 WBC (Bld) 0.8 % Critically low 0.9-7.0 [facility] Comment on above: Performed By: #### 4 [id number] #### [facility] [address] [place] [address] Dr. Valeria Farris Erythrocyte distribution width (RBC) [Ratio] 13.5 % Normal 11.0-15.0 [facility] Comment on above: Performed By: #### 4 [id number] #### [facility] [address] [place] [address] Dr. Valeria Farris Hematocrit (Bld) [Volume fraction] 30.4 % Critically low 36.0-48.0 [facility] Comment on above: Performed By: #### 4 [id number] #### [facility] [address] [place] [address] Dr. Valeria Farris Hemoglobin (Bld) [Mass/Vol] 9.8 g/dL Critically low 12.0-16.0 [facility] Comment on above: Performed By: #### 4 [id number] #### [facility] [address] [place] [address] Dr. Valeria Farris IG # 0.21 10e3/ul Critically high 0.00-0.[address] [facility] Comment on above: Performed By: #### [id number] #### [facility] [address] [place] [address] Dr. Valeria Farris IG % 1.6 % Critically high 0.0-0.5 [facility] Comment on above: Performed By: #### 4 [id number] #### [facility] [address] [address] [address] Valeria Farris LYMPH # 2.8 103/ul Normal 1.2-3.8 [facility] Comment on above: Performed By: #### 4 [id number] #### [facility] [address] [address] [address] Valeria Farris Lymphocytes/100 WBC (Bld) 21.3 % Normal 20.5-60.0 [facility] Comment on above: Performed By: #### 4 [id number] #### [facility] [address] [address] [address] Valeria Farris MANUAL DIFF REQ NO Normal [facility] Comment on above: Performed By: #### 4 [id number] #### [facility] [address] [place] [address] Dr. Valeria Farris MCH (RBC) [Entitic mass] 28.2 pg Normal 26.7-34.0 [facility] Comment on above: Performed By: #### 4 [id number] #### [facility] [address] [place] [address] Dr. Valeria Farris MCHC (RBC) [Mass/Vol] 32.2 g/dL Normal 29.9-35.2 [facility] Comment on above: Performed By: #### 4 [id number] #### [facility] [address] [address] [address] Valeria Farris MCV (RBC) [Entitic vol] 87.6 fL Normal 81.0-99.0 [facility] Comment on above: Performed By: #### 4 [id number] #### [facility] [address] [address] [address] Valeria Farris MONO # 0.9 103/ul Critically high 0.3-0.8 [facility] Comment on above: Performed By: #### 4 [id number] #### [facility] [address] [place] [address] Dr. Valeria Farris Monocytes/100 WBC (Bld) 6.8 % Normal 1.7-12.0 [facility] Comment on above: Performed By: #### 4 [id number] #### [facility] [address] [address] [address] Valeria Farris NEUT # 9.0 103/ul Critically high 1.4-6.5 [facility] Comment on above: Performed By: #### 4 [id number] #### [facility] [address] [address] [address] Valeria Farris Neutrophils/100 WBC (Bld) 69.3 % Normal 43.0-75.0 [facility] Comment on above: Performed By: #### 4 [id number] #### [facility] [address] [place] [address] Dr. Valeria Farris Platelet mean volume (Bld) [Entitic vol] 10.5 fL Normal 9.5-13.5 [facility] Comment on above: Performed By: #### 4 [id number] #### [facility] [address] [place] [address] Dr. Valeria Farris PLT 187 103/ul Normal 150-450 [facility] Comment on above: Performed By: #### 4 [id number] #### [facility] [address] [place] [address] Dr. Valeria Farris RBC 3.47 106/ul Critically low 4.20-5.40 [facility] Comment on above: Performed By: #### 4 [id number] #### [facility] [address] [place] [address] Dr. Valeria Farris WBC 13.0 103/ul Critically high 4.0-11.0 [facility] Comment on above: Performed By: #### 4 [id number] #### [facility] [address] [place] [address] Dr. Valeria Farris CTA CHEST WO W [...] Daryl LOPEZ Date: 2022-05-25 01:55 Normal [facility] CULTURE URINEon 05-25-2022 CULTURE URINE Culture Observations : HEAVY GROWTH OF MIXED GENITAL RIO. NO POTENTIAL PATHOGENS SEEN. Normal [facility] Comment on above: Performed By: #### [id number] #### [facility] [address] [place] [address] Dr. Valeria Farris LIPASEon 05-25-2022 Lipase [Catalytic activity/Vol] 54.0 U/L Critically low 73.0-393.0 [facility] Comment on above: Performed By: #### P [id number] #### [facility] [address] [place] [address] Dr. Valeria Farris PROF 14(COMP METB)on 023 Albumin [Mass/Vol] 2.5 g/dL Critically low 3.4-5.0 [facility] Comment on above: Performed By: #### P ROT24U #### [facility] [address] [place] [address] Dr. Valeria Farris Albumin/Globulin [Mass ratio] 0.6 {ratio} Normal [facility] Comment on above: Performed By: #### P ROT24U #### [facility] [address] [address] [address] Valeria Farris ALP [Catalytic activity/Vol] 97 U/L Normal 46-116 [facility] Comment on above: Performed By: #### P ROT24U #### [facility] [address] [address] [address] Valeria Farris ALT [Catalytic activity/Vol] 25 U/L Normal 14-59 [facility] Comment on above: Performed By: #### P ROT24U #### [facility] [address] [address] [address] Valeria Farris Anion gap [Moles/Vol] 14.2 mmol/L Normal [facility] Comment on above: Performed By: #### P ROT24U #### [facility] [address] [place] [address] Dr. Valeria Farris AST [Catalytic activity/Vol] 12 U/L Critically low 15-37 [facility] Comment on above: Performed By: #### P ROT24U #### [facility] [address] [address] [address] Valeria Farris Bilirubin [Mass/Vol] 0.2 mg/dL Normal 0.2-1.0 [facility] Comment on above: Performed By: #### P ROT24U #### [facility] [address] [address] [address] Valeria Farris Calcium [Mass/Vol] 8.5 mg/dL Normal 8.5-10.1 [facility] Comment on above: Performed By: #### P ROT24U #### [facility] [address] [address] [address] Valeria Farris Chloride [Moles/Vol] 103 mmol/L Normal 98-107 [facility] Comment on above: Performed By: #### P ROT24U #### [facility] [address] [address] [address] Valeria Farris CO2 [Moles/Vol] 23.0 mmol/L Normal 21.0-32.0 [facility] Comment on above: Performed By: #### P ROT24U #### [facility] [address] [address] [address] Valeria Farris Creatinine [Mass/Vol] 0.39 mg/dL Critically low 0.55-1.02 [facility] Comment on above: Performed By: #### P ROT24U #### [facility] [address] [address] [address] Valeria Farris EGFR-AF BENINESE >60 Normal >=60 [facility] Comment on above: Performed By: #### P ROT24U #### [facility] [address] [address] [address] Valeria Farris EGFR-NON AF BENINESE >60 Normal >=60 [facility] Comment on above: Performed By: #### P ROT24U #### [facility] [address] [place] [address] Dr. Valeria Farris Globulin (S) [Mass/Vol] 4.0 g/dL Normal [facility] Comment on above: Performed By: #### P ROT24U #### [facility] [address] [address] [address] Valeria Farris Glucose [Mass/Vol] 113 mg/dL Critically high 74-106 [facility] Comment on above: Performed By: #### P ROT24U #### [facility] [address] [place] [address] Dr. Valeria Farris Potassium [Moles/Vol] 3.2 mmol/L Critically low 3.5-5.1 [facility] Comment on above: Performed By: #### P ROT24U #### [facility] [address] [address] [address] Valeria Farris Protein [Mass/Vol] 6.5 g/dL Normal 6.4-8.2 [facility] Comment on above: Performed By: #### P ROT24U #### [facility] [address] [address] [address] Valeria Farris Sodium [Moles/Vol] 137 mmol/L Normal 136-145 [facility] Comment on above: Performed By: #### P ROT24U #### [facility] [address] [place] [address] Dr. Valeria Farris Urea nitrogen [Mass/Vol] 8.0 mg/dL Normal 7.0-18.0 [facility] Comment on above: Performed By: #### P ROT24U #### [facility] [address] [place] [address] Dr. Valeria Farris Urea nitrogen/Creatinine [Mass ratio] 20.5 mg/mg Normal [facility] Comment on above: Performed By: #### P ROT24U #### [facility] [address] [place] [address] Dr. Valeria Farris UA (CLEAN/CATCH) BRIQUETTING MACHINE OPERATOR/MICRO I F IND.on 05-25-2022 Bilirubin Ql (U) Negative Normal NEGATIVE [facility] Comment on above: Performed By: #### G LU1HR #### [facility] [address] [place] [address] Dr. Valeria Farris Clarity (U) CLEAR Normal CLEAR [facility] Comment on above: Performed By: #### G LU1HR #### [facility] [address] [place] [address] Dr. Valeria Farris Color (U) YELLOW Normal YELLOW [facility] Comment on above: Performed By: #### G LU1HR #### [facility] [address] [place] [address] Dr. Valeria Farris Glucose Ql (U) Negative Normal NEGATIVE [facility] Comment on above: Performed By: #### G LU1HR #### [facility] [address] [place] [address] Dr. Valeria Farris Hemoglobin Ql (U) TRACE-INTACT Abnormal NEGATIVE [facility] Comment on above: Performed By: #### G LU1HR #### [facility] [address] [place] [address] Dr. Valeria Farris Ketones Ql (U) TRACE Abnormal NEGATIVE [facility] Comment on above: Performed By: #### G LU1HR #### [facility] [address] [place] [address] Dr. Valeria Farris LEUKOCYTES Negative Normal NEGATIVE [facility] Comment on above: Performed By: #### G LU1HR #### [facility] [address] [place] [address] Dr. Valeria Farris Nitrite Ql (U) Negative Normal NEGATIVE [facility] Comment on above: Performed By: #### G LU1HR #### [facility] [address] [place] [address] Dr. Valeria Farris pH (U) 6.0 [pH] Normal 5-9 [facility] Comment on above: Performed By: #### G LU1HR #### [facility] [address] [place] [address] Dr. Valeria Farris SPEC GRAVITY >=1.030 Abnormal 1.005-<=1.02 5 [facility] Comment on above: Performed By: #### G LU1HR #### [facility] [address] [place] [address] Dr. Valeria Farris UA PROTEIN Negative Normal NEGATIVE/ TRACE [facility] Comment on above: Performed By: #### G LU1HR #### [facility] [address] [place] [address] Dr. Valeria Farris UR MICRO IND INDICATED Normal [facility] Comment on above: Performed By: #### G LU1HR #### [facility] [address] [place] [address] Dr. Valeria Farris Urobilinogen Qn (U) 0.2 {Manolo'U}/dL Normal 0.2 - 1. 0 [facility] Comment on above: Performed By: #### G LU1HR #### [facility] [address] [place] [address] Dr. Valeria Farris URINE MICROSCOPIC ONLYon BACTERIA SMALL Abnormal NONE SEEN [facility] Comment on above: Performed By: #### G LU1HR #### [facility] [address] [place] [address] Dr. Valeria Farris Bacteria identified Cx Nom (U) INDICATED Normal [facility] Comment on above: Performed By: #### G LU1HR #### [facility] [address] [place] [address] Dr. Valeria Farris CA OX CRYSTALS FEW Normal [facility] Comment on above: Performed By: #### G LU1HR #### [facility] [address] [place] [address] Dr. Valeria aFrris CAST NONE SEEN Normal NONE SEEN [facility] Comment on above: Performed By: #### G LU1HR #### [facility] [address] [place] [address] Dr. Valeria Farrsi Crystals LM Nom (Urine sed) SEEN Abnormal NONE SEEN [facility] Comment on above: Performed By: #### G LU1HR #### [facility] [address] [place] [address] Dr. Valeria Farris Epithelial cells LM Ql (Urine sed) MANY Abnormal NONE SEEN /RARE [facility] Comment on above: Performed By: #### G LU1HR #### [facility] [address] [place] [address] Dr. Valeria Farris MUCOUS TRACE Abnormal NONE SEEN [facility] Comment on above: Performed By: #### G LU1HR #### [facility] [address] [place] [address] Dr. Valeria Farris RBC 2-5 Abnormal 0-2 [facility] Comment on above: Performed By: #### G LU1HR #### [facility] [address] [place] [address] Dr. Valeria Farris WBC NONE SEEN Normal NONE SEEN [facility] Comment on above: Performed By: #### G LU1HR #### [facility] [address] [place] [address] Dr. Valeria Farris VAGINITIS/VAGINOSIS DNA PROB Sam 05-25-2022 Litzy species Negative Normal Negative [facility] Comment on above: Performed By: #### P REGQNT #### [facility] [address] [place] [address] Dr. Valeria Farris Gardnerella vaginalis Positive Abnormal Negative [facility] Comment on above: Performed By: #### P REGQNT #### [facility] [address] [place] [address] Dr. Valeria Farris Trichomonas vaginalis Negative Normal Negative [facility] Comment on above: Performed By: #### P REGQNT #### [facility] [address] [place] [address] Dr. Valeria Farris UA (CLEAN/CATCH) BRIQUETTING MACHINE OPERATOR/MICRO I F IND.on 05-04-2022 Bilirubin Ql (U) Negative Normal NEGATIVE [facility] Comment on above: Performed By: #### P REGQNT #### [facility] [address] [place] [address] Dr. Valeria Farris Clarity (U) CLEAR Normal CLEAR [facility] Comment on above: Performed By: #### P REGQNT #### [facility] [address] [place] [address] Dr. Valeria Farris Color (U) LT. YELLOW Normal YELLOW [facility] Comment on above: Performed By: #### P REGQNT #### [facility] [address] [place] [address] Dr. Valeria Farris Glucose Ql (U) Negative Normal NEGATIVE [facility] Comment on above: Performed By: #### P REGQNT #### [facility] [address] [place] [address] Dr. Valeria Farris Hemoglobin Ql (U) SMALL Abnormal NEGATIVE [facility] Comment on above: Performed By: #### P REGQNT #### [facility] [address] [place] [address] Dr. Valeria Farris Ketones Ql (U) TRACE Abnormal NEGATIVE [facility] Comment on above: Performed By: #### P REGQNT #### [facility] [address] [place] [address] Dr. Valeria Farris LEUKOCYTES Negative Normal NEGATIVE [facility] Comment on above: Performed By: #### P REGQNT #### [facility] [address] [place] [address] Dr. Valeria Farris Nitrite Ql (U) Negative Normal NEGATIVE [facility] Comment on above: Performed By: #### P REGQNT #### [facility] [address] [place] [address] Dr. Valeria Farris pH (U) 6.5 [pH] Normal 5-9 The [facility] Comment on above: Performed By: #### P REGQNT #### [facility] [address] [place] [address] Dr. Valeria Farris SPEC GRAVITY 1.025 Normal 1.005-<=1.02 5 [facility] Comment on above: Performed By: #### P REGQNT #### [facility] [address] [place] [address] Dr. Valeria Farris UA PROTEIN Negative Normal NEGATIVE/ TRACE The [facility] Comment on above: Performed By: #### P REGQNT #### [facility] [address] [place] [address] Dr. Valeria Farris UR MICRO IND INDICATED Normal The [facility] Comment on above: Performed By: #### P REGQNT #### [facility] [address] [place] [address] Dr. Valeria Farris Urobilinogen Qn (U) 0.2 {Manolo'U}/dL Normal 0.2 - 1. 0 [facility] Comment on above: Performed By: #### P REGQNT #### [facility] [address] [place] [address] Dr. Valeria Farris URINE MICROSCOPIC ONLYon BACTERIA NONE SEEN Normal NONE SEEN [facility] Comment on above: Performed By: #### U ACSIND, UMICRO #### [facility] [address] [place] [address] Dr. Valeria Farris Bacteria identified Cx Nom (U) NOT INDICATED Normal The [facility] Comment on above: Performed By: #### U ACSIND, UMICRO #### [facility] [address] [place] [address] Dr. Valeria Farris CAST NONE SEEN Normal NONE SEEN The [facility] Comment on above: Performed By: #### U ACSIND, UMICRO #### [facility] [address] [place] [address] Dr. Valeria Farris Crystals LM Nom (Urine sed) NONE SEEN Normal NONE SEEN The [facility] Comment on above: Performed By: #### U ACSIND, UMICRO #### [facility] [address] [place] [address] Dr. Valeria Farris Epithelial cells LM Ql (Urine sed) FEW Abnormal NONE SEEN /RARE The [facility] Comment on above: Performed By: #### U ALEX LANDEROSRO #### [facility] [address] [place] [address] Dr. Valeria Farris MUCOUS TRACE Abnormal NONE SEEN The [facility] Comment on above: Performed By: #### U ACSTRUPTI UMICRO #### [facility] [address] [place] [address] Dr. Valeria Farris RBC 0-2 Normal 0-2 The [facility] Comment on above: Performed By: #### U ACSALEX LYLESRO #### [facility] [address] [place] [address] Dr. Valeria Farris WBC NONE SEEN Normal NONE SEEN The [facility] Comment on above: Performed By: #### U ALEX LANDEROSRO #### [facility] [address] [place] [address] Dr. Valeria Farris AMYLASEon 04-12-2022 Amylase [Catalytic activity/Vol] 31 U/L Normal 25-115 The [facility] Comment on above: Performed By: #### G LU1HR #### [facility] [address] [place] [address] Dr. Valeria Farris BUNon 04-12-2022 Urea nitrogen [Mass/Vol] 7.0 mg/dL Normal 7.0-18.0 [facility] Comment on above: Performed By: #### G LU1HR #### [facility] [address] [place] [address] Dr. Valeria Farris CBC AUTO DIFFon 04-12-2022 BASO # 0.0 103/ul Normal 0.0-0.1 The [facility] Comment on above: Performed By: #### P REGQNT #### [facility] [address] [place] [address] Dr. Valeria Farris Basophils/100 WBC (Bld) 0.3 % Normal 0.2-2.0 The [facility] Comment on above: Performed By: #### P REGQNT #### [facility] [address] [address] [address] Valeria Farris EO # 0.3 103/ul Normal 0.0-0.7 [facility] Comment on above: Performed By: #### P REGQNT #### [facility] [address] [address] [address] Valeria Farris Eosinophils/100 WBC (Bld) 2.3 % Normal 0.9-7.0 [facility] Comment on above: Performed By: #### P REGQNT #### [facility] [address] [address] [address] Valeria Farris Erythrocyte distribution width (RBC) [Ratio] 12.8 % Normal 11.0-15.0 [facility] Comment on above: Performed By: #### P REGQNT #### [facility] [address] [place] [address] Dr. Valeria Farris Hematocrit (Bld) [Volume fraction] 34.9 % Critically low 36.0-48.0 [facility] Comment on above: Performed By: #### P REGQNT #### [facility] [address] [place] [address] Dr. Valeria Farris Hemoglobin (Bld) [Mass/Vol] 11.8 g/dL Critically low 12.0-16.0 [facility] Comment on above: Performed By: #### P REGQNT #### [facility] [address] [address] [address] Valeria Farris IG # 0.08 10e3/ul Critically high 0.00-0.[address] [facility] Comment on above: Performed By: #### P REGQNT #### [facility] [address] [address] [address] Valeria Farris IG % 0.7 % Critically high 0.0-0.5 [facility] Comment on above: Performed By: #### P REGQNT #### [facility] [address] [place] [address] Dr. Valeria Farris LYMPH # 2.6 103/ul Normal 1.2-3.8 [facility] Comment on above: Performed By: #### P REGQNT #### [facility] [address] [address] [address] Valeria Farris Lymphocytes/100 WBC (Bld) 22.4 % Normal 20.5-60.0 [facility] Comment on above: Performed By: #### P REGQNT #### [facility] [address] [address] [address] Valeria Farris MANUAL DIFF REQ NO Normal [facility] Comment on above: Performed By: #### P REGQNT #### [facility] [address] [address] [address] Valeria Farris MCH (RBC) [Entitic mass] 28.5 pg Normal 26.7-34.0 [facility] Comment on above: Performed By: #### P REGQNT #### [facility] [address] [place] [address] Dr. Valeria Farris MCHC (RBC) [Mass/Vol] 33.8 g/dL Normal 29.9-35.2 [facility] Comment on above: Performed By: #### P REGQNT #### [facility] [address] [address] [address] Valeria Farris MCV (RBC) [Entitic vol] 84.3 fL Normal 81.0-99.0 [facility] Comment on above: Performed By: #### P REGQNT #### [facility] [address] [place] [address] Dr. Valeria Farris MONO # 0.8 103/ul Normal 0.3-0.8 [facility] Comment on above: Performed By: #### P REGQNT #### [facility] [address] [address] [address] Valeria Farris Monocytes/100 WBC (Bld) 6.8 % Normal 1.7-12.0 [facility] Comment on above: Performed By: #### P REGQNT #### [facility] [address] [place] [address] Dr. Valeria Farris NEUT # 7.8 103/ul Critically high 1.4-6.5 [facility] Comment on above: Performed By: #### P REGQNT #### [facility] [address] [address] [address] Valeria Farris Neutrophils/100 WBC (Bld) 67.5 % Normal 43.0-75.0 [facility] Comment on above: Performed By: #### P REGQNT #### [facility] [address] [address] [address] Valeria Farris Platelet mean volume (Bld) [Entitic vol] 10.3 fL Normal 9.5-13.5 [facility] Comment on above: Performed By: #### P REGQNT #### [facility] [address] [address] [address] Valeria Farris PLT 195 103/ul Normal 150-450 [facility] Comment on above: Performed By: #### P REGQNT #### [facility] [address] [place] [address] Dr. Valeria Farris RBC 4.14 106/ul Critically low 4.20-5.40 [facility] Comment on above: Performed By: #### P REGQNT #### [facility] [address] [address] [address] Valeria Farris WBC 11.5 103/ul Critically high 4.0-11.0 [facility] Comment on above: Performed By: #### P REGQNT #### [facility] [address] [place] [address] Dr. Valeria Farris CREATININEon 04-12-2022 Creatinine [Mass/Vol] 0.44 mg/dL Critically low 0.55-1.02 [facility] Comment on above: Performed By: #### G LU1HR #### [facility] [address] [place] [address] Dr. Valeria Farris EGFR-AF BENINESE >60 Normal >=60 [facility] Comment on above: Performed By: #### G LU1HR #### [facility] [address] [address] [address] Valeria Farris EGFR-NON AF BENINESE >60 Normal >=60 [facility] Comment on above: Performed By: #### G LU1HR #### [facility] [address] [place] [address] Dr. Valeria Farris LIPASEon 04-12-2022 Lipase [Catalytic activity/Vol] 62.0 U/L Critically low 73.0-393.0 [facility] Comment on above: Performed By: #### G LU1HR #### [facility] [address] [place] [address] Dr. Valeria Farris LIVER PROFILEon 04-12-2022 Albumin [Mass/Vol] 2.9 g/dL Critically low 3.4-5.0 Th e [facility] Comment on above: Performed By: #### G LU1HR #### [facility] [address] [place] [address] Dr. Valeria Farris Albumin/Globulin [Mass ratio] 0.7 {ratio} Normal [facility] Comment on above: Performed By: #### G LU1HR #### [facility] [address] [place] [address] Dr. Valeria Farris ALP [Catalytic activity/Vol] 86 U/L Normal 46-116 [facility] Comment on above: Performed By: #### G LU1HR #### [facility] [address] [place] [address] Dr. Valeria Farris ALT [Catalytic activity/Vol] 14 U/L Normal 14-59 [facility] Comment on above: Performed By: #### G LU1HR #### [facility] [address] [place] [address] Dr. Valeria Farris AST [Catalytic activity/Vol] 12 U/L Critically low 15-37 [facility] Comment on above: Performed By: #### G LU1HR #### [facility] [address] [place] [address] Dr. Valeria Farris BILI, CONJUGATED 0.1 mg/dL Normal 0.0-0.2 [facility] Comment on above: Performed By: #### G LU1HR #### [facility] [address] [place] [address] Dr. Valeria Farris Bilirubin [Mass/Vol] 0.2 mg/dL Normal 0.2-1.0 [facility] Comment on above: Performed By: #### G LU1HR #### [facility] [address] [place] [address] Dr. Valeria Farris Globulin (S) [Mass/Vol] 4.2 g/dL Normal [facility] Comment on above: Performed By: #### G LU1HR #### [facility] [address] [place] [address] Dr. Valeria Farris Protein [Mass/Vol] 7.1 g/dL Normal 6.4-8.2 The [facility] Comment on above: Performed By: #### G LU1HR #### [facility] [address] [place] [address] Dr. Valeria Farris PROF 14(COMP METB)on 022 Anion gap [Moles/Vol] 13.1 mmol/L Normal [facility] Comment on above: Performed By: #### G LU1HR #### [facility] [address] [place] [address] Dr. Valeria Farris Calcium [Mass/Vol] 8.7 mg/dL Normal 8.5-10.1 The [facility] Comment on above: Performed By: #### G LU1HR #### [facility] [address] [place] [address] Dr. Valeria Farris Chloride [Moles/Vol] 100 mmol/L Normal 98-107 The [facility] Comment on above: Performed By: #### G LU1HR #### [facility] [address] [place] [address] Dr. Valeria Farris CO2 [Moles/Vol] 25.4 mmol/L Normal 21.0-32.0 [facility] Comment on above: Performed By: #### G LU1HR #### [facility] [address] [place] [address] Dr. Valeria Farris Glucose [Mass/Vol] 87 mg/dL Normal 74-106 The [facility] Comment on above: Performed By: #### G LU1HR #### [facility] [address] [address] [address] Valeria Farris Potassium [Moles/Vol] 3.5 mmol/L Normal 3.5-5.1 The [facility] Comment on above: Performed By: #### G LU1HR #### [facility] [address] [address] [address] Valeria Farris Sodium [Moles/Vol] 135 mmol/L Critically low 136-145 Th e [facility] Comment on above: Performed By: #### G LU1HR #### [facility] [address] [address] [address] Valeria Farris Urea nitrogen/Creatinine [Mass ratio] 15.9 mg/mg Normal [facility] Comment on above: Performed By: #### G LU1HR #### [facility] [address] [place] [address] Dr. Valeria Farris US PREG CERVICAL LENGTHon [...] GERARD GONZALEZ Date: 2022-04-12 16:39 Normal The [facility] UA (CLEAN/CATCH) BRIQUETTING MACHINE OPERATOR/MICRO I F IND.on 04-11-2022 Bilirubin Ql (U) Negative Normal NEGATIVE The [facility] Comment on above: Performed By: #### U ACSIND UMICRO #### [facility] [address] [address] [address] Valeria Farris Clarity (U) CLEAR Normal CLEAR The [facility] Comment on above: Performed By: #### U ACSIND, UMICRO #### [facility] [address] [place] [address] Dr. Valeria Farris Color (U) LT. YELLOW Normal YELLOW The [facility] Comment on above: Performed By: #### U ACSIND, UMICRO #### [facility] [address] [address] [address] Valeria Farris Glucose Ql (U) Negative Normal NEGATIVE [facility] Comment on above: Performed By: #### U ACSIND, UMICRO #### [facility] [address] [address] [address] Valeria Farris Hemoglobin Ql (U) TRACE-INTACT Abnormal NEGATIVE [facility] Comment on above: Performed By: #### U ACSIND, UMICRO #### [facility] [address] [place] [address] Dr. Valeria Farris Ketones Ql (U) Negative Normal NEGATIVE [facility] Comment on above: Performed By: #### U ACSIND, UMICRO #### [facility] [address] [place] [address] Dr. Valeria Farris LEUKOCYTES Negative Normal NEGATIVE [facility] Comment on above: Performed By: #### U ACSIND, UMICRO #### [facility] [address] [place] [address] Dr. Valeria Farris Nitrite Ql (U) Negative Normal NEGATIVE [facility] Comment on above: Performed By: #### U ACSIND, UMICRO #### [facility] [address] [place] [address] Dr. Valeria Farris pH (U) 6.5 [pH] Normal 5-9 [facility] Comment on above: Performed By: #### U ACSIND, UMICRO #### [facility] [address] [place] [address] Dr. Valeria Farris SPEC GRAVITY 1.010 Normal 1.005-<=1.02 5 [facility] Comment on above: Performed By: #### U ACSIND, UMICRO #### [facility] [address] [place] [address] Dr. Valeria Farris UA PROTEIN Negative Normal NEGATIVE/ TRACE [facility] Comment on above: Performed By: #### U ACSIND, UMICRO #### [facility] [address] [place] [address] Dr. Valeria Farris UR MICRO IND INDICATED Normal [facility] Comment on above: Performed By: #### U ACSIND, UMICRO #### [facility] [address] [place] [address] Dr. Valeria Farris Urobilinogen Qn (U) 0.2 {Manolo'U}/dL Normal 0.2 - 1. 0 [facility] Comment on above: Performed By: #### U ACSIND, UMICRO #### [facility] [address] [place] [address] Dr. Valeria Farris URINE MICROSCOPIC ONLYon BACTERIA NONE SEEN Normal NONE SEEN The [facility] Comment on above: Performed By: #### U ACSIND, UMICRO #### [facility] [address] [place] [address] Dr. Valeria Farris Bacteria identified Cx Nom (U) NOT INDICATED Normal [facility] Comment on above: Performed By: #### U ACSIND, UMICRO #### [facility] [address] [place] [address] Dr. Valeria Farris CAST NONE SEEN Normal NONE SEEN The [facility] Comment on above: Performed By: #### U ACSIND, UMICRO #### [facility] [address] [place] [address] Dr. Valeria Farris Crystals LM Nom (Urine sed) NONE SEEN Normal NONE SEEN The [facility] Comment on above: Performed By: #### U ACSIND, UMICRO #### [facility] [address] [place] [address] Dr. Valeria Farris Epithelial cells LM Ql (Urine sed) FEW Abnormal NONE SEEN /RARE The [facility] Comment on above: Performed By: #### U ACSIND, UMICRO #### [facility] [address] [place] [address] Dr. Valeria Farris MUCOUS NONE SEEN Normal NONE SEEN The [facility] Comment on above: Performed By: #### U ACSIND, UMICRO #### [facility] [address] [place] [address] Dr. Valeria Farris RBC 0-2 Normal 0-2 [facility] Comment on above: Performed By: #### U DAPHNE LANDEROS #### [facility] [address] [address] [address] Valeria Farris WBC 0-2 Abnormal NONE SEEN The [facility] Comment on above: Performed By: #### U DAPHNE LANDEROS #### [facility] [address] [place], [place] [address] Dr. Valeria Farris US PREG ANATOMY SINGLEon [...] ALINE GALICIA Date: 2022-03-28 10:57 Normal The [facility] XR SHOULDER RT 2V or >on XR SHOULDER RT 2V or > EXAM: XR SHOULDER RT 2V or > INDICATION: Pain. COMPARISON: None. TECHNIQUE: Right shoulder, 3 views. FINDINGS: No acute fracture or dislocation. Intact glenohumeral and acromioclavicular joints. Unremarkable soft tissues. IMPRESSION: Normal right shoulder. Electronically authenticated by: GILDARDO TAYLOR Date: 2022-03-19 08:36 Normal The [facility] AFP TETRA PROFILE (MATERNAL) on 03-08-2022 AFP MoM 0.60 Normal [facility] Comment on above: Performed By: #### U ALEX LANDEROSRO #### [facility] [address] [address] [address] Valeria Farris AFP Value 15.2 ng/mL Normal [facility] Comment on above: Performed By: #### U ALEX LANDEROSRO #### [facility] [address] [address] [address] Valeria Farris Comment Comment Normal [facility] Comment on above: Result Comment: Nicolás Ramirez, Ph.D., [facility] Director . References: Available Upon Request. . Multiples Of Median Cutoffs Abbreviation Definitions For AFP Elevations IDD- Insulin Dep Diabetes Rodriguez 2.5 Black 2.8 OSBR- Open Spina Bifida IDD 2.0 Twins 4.5 Risk DSR Cutoff 1:270 DSR- Down Syndrome Risk T18 Cutoff 1:100 T18- Trisomy 18 . For further inquiries contact [facility] at [phone]. . This test was developed and its performance characteristics determined by [facility]. It has not been cleared or approved by the Food and Drug Administration. Performed By: #### U ALEX LANDEROSRO #### [facility] [address] [address] [address] Valeria Farris CHACE MoM 0.90 Normal [facility] Comment on above: Performed By: #### U ALEX LANDEROSRO #### [facility] [address] [address] [address] Valeria Farris CHACE Value 95.93 pg/mL Normal [facility] Comment on above: Performed By: #### U ALEX LANDEROSRO #### [facility] [address] [address] [address] Valeria Farris DSR (By Age) 1 [place] [address] [facility] Comment on above: Performed By: #### U ACSIND, UMICRO #### [facility] [address] [address] [address] Valeria Farris DSR (Second Trimester) 1 [place] 5782 Normal [facility] Comment on above: Performed By: #### U ACSTRUPTI, UMICRO #### [facility] [address] [address] [address] Valeria Farris Gest. Age on Collection Date 16.7 WEEKS Normal [facility] Comment on above: Performed By: #### U ACSTRUPTI, UMICRO #### [facility] [address] [place] [address] Dr. Valeria Farris Gestat. Age Based On SUNSHINE Normal [facility] Comment on above: Result Comment: 07/23 Performed By: #### U ACSTRUPTI, UMICRO #### [facility] [address] [place] [address] Dr. Valeria Farris hCG MoM 0.61 Normal [facility] Comment on above: Performed By: #### U ACSTRUPTI, UMICRO #### [facility] [address] [place] [address] [place] [address] m[IU]/mL [facility] Comment on above: Performed By: #### U ACSTRUPTI, UMICRO #### [facility] [address] [place] [address] Dr. Valeria Farris Insulin Dep Diabetes No Normal [facility] Comment on above: Performed By: #### U ACSIND, UMICRO #### [facility] [address] [place] [address] Dr. Valeria Farris Interpretation Comment Normal [facility] Comment on above: Result Comment: Inte rpretation: [...] identifies 60% of Trisomy 18 pregnancies. The [employer] recommends amniocentesis be offered to women age 35 and older. Recalculations are not recommended when gestational dating by LMP and ultrasound are within 10 days. Performed By: #### U ACSTRUPTI UMICRO #### [facility] [address] [address] [address] Valeria Farris [age] Normal [facility] Comment on above: Performed By: #### U ACSTRUPTI UMICRO #### [facility] [address] [place] [address] Dr. Valeria Farris Multiple Gestation No Normal [facility] Comment on above: Performed By: #### U ACSTRUPTI UMICRO #### [facility] [address] [place] [address] Dr. Valeria [place] [address] Normal [facility] Comment on above: Performed By: #### U ACSTRUPTI UMICRO #### [facility] [address] [place] [address] Dr. Valeria Farris PDF . [facility] Comment on above: Performed By: #### U ACSTRUPTI UMICRO #### [facility] [address] [place] [address] Dr. Valeria Farris Race Normal [facility] Comment on above: Performed By: #### U ACSIND, UMICRO #### [facility] [address] [place] [address] Dr. Valeria Farris Results Report [facility] Comment on above: Performed By: #### U ACSTRUPTI UMICRO #### [facility] [address] [place] [address] Dr. Valeria Farris T18 (By Age) 1:[birth year] [facility] Comment on above: Performed By: #### U ACSIND UMICRO #### [facility] [address] [place], [place] [id number] Dr. Valeria Farris T18 Risk Not increased Normal [facility] Comment on above: Performed By: #### U ACSTRUPTI UMICRO #### [facility] [address] [place] [address] Dr. Valeria Farris Test Results: Negative Normal [facility] Comment on above: Performed By: #### U ACSTRUPTI UMICRO #### [facility] [address] [place] [address] Dr. Valeria Farris uE3 MoM 0.75 Normal [facility] Comment on above: Performed By: #### U ACSTRUPTI UMICRO #### [facility] [address] [address] [address] Valeria Farris uE3 Value 0.71 ng/mL Normal [facility] Comment on above: Performed By: #### U ACSTRUPTI UMICRO #### [facility] [address] [place] [address] Dr. Valeria Farris GLUCOSE - 1HRon 03-03-2022 Glucose [Mass/Vol] 214 mg/dL Critically high 74-106 T [facility] Comment on above: Performed By: #### G LU1HR #### [facility] [address] [place] [address] Dr. Valeria Farris HEPATITIS C VIRUS AB W/ REFL EX QUANTon 01-11-2022 HCV AB <0.1 Normal 0.0-0.9 [facility] Comment on above: Performed By: #### P REGQNT #### [facility] [address] [place] [address] Dr. Valeria Farris Interpretation: Comment Normal [facility] Comment on above: Result Comment: Nega tive Not infected with HCV, unless recent infection is suspected or other evidence exists to indicate HCV infection. Performed By: #### P REGQNT #### [facility] [address] [place] [address] Dr. Valeria Farris HEP B SURFACE ANTIGEN SCREEN on 01-10-2022 HBsAg Screen Negative Normal Negative [facility] Comment on above: Performed By: #### P REGQNT #### [facility] [address] [place] [address] Dr. Valeria Farris HIV 1 AND 2 WITH REFLEXon HIV Screen 4th Generation wRfx Non-Reactive Normal Non Reactive [facility] Comment on above: Result Comment: HIV Negative HIV-1/HIV-2 antibodies and HIV-1 p24 antigen were NOT detected. There is no laboratory evidence of HIV infection. Performed By: #### H IV12 #### [facility] [address] [place] [address] Dr. Valeria Farris RPR QUANTon 01-10-2022 Rapid Plasma Reagin, Quant Non-Reactive Normal NonRea<1:1 [facility] Comment on above: Result Comment: Plea se Note: This test does not meet current guidelines for screening and diagnosis of syphilis. This test is intended for following treatment response in patients being treated for syphilis infection. To screen for syphilis infection, a reflex cascade that includes both RPR and a treponema-specific assay should be utilized, such as Treponema pallidum (Syphilis) Screening [place] (071597) or Rapid Plasma Reagin (RPR) Test With Reflex to Quantitative RPR and Confirmatory Treponema pallidum Antibodies (636259). Performed By: #### R PRQ #### [facility] [address] [place] [address] Dr. Valeria Farris RUBELLA AB IGGon 01-10-2022 Rubella Antibodies, IgG 1.83 index Normal Immune >0.99 [facility] Comment on above: Result Comment: Non- immune <0.90 Equivocal 0.90 - 0.99 Immune >0.99 Performed By: #### U ACSIND, UMICRO #### [facility] [address] [place] [address] Dr. Valeria Farris CBC AUTO DIFFon 01-09-2022 BASO # 0.0 103/ul Normal 0.0-0.1 [facility] Comment on above: Performed By: #### 4 [id number] #### [facility] [address] [place] [address] Dr. Valeria Farris Basophils/100 WBC (Bld) 0.4 % Normal 0.2-2.0 [facility] Comment on above: Performed By: #### 4 [id number] #### [facility] [address] [place] [address] Dr. Valeria Farris EO # 0.3 103/ul Normal 0.0-0.7 [facility] Comment on above: Performed By: #### 4 [id number] #### [facility] [address] [place] [address] Dr. Valeria Farris Eosinophils/100 WBC (Bld) 3.5 % Normal 0.9-7.0 [facility] Comment on above: Performed By: #### 4 [id number] #### [facility] [address] [place] [address] Dr. Valeria Farris Erythrocyte distribution width (RBC) [Ratio] 13.6 % Normal 11.0-15.0 [facility] Comment on above: Performed By: #### 4 [id number] #### [facility] [address] [place] [address] Dr. Valeria Farris Hematocrit (Bld) [Volume fraction] 38.9 % Normal 36.0-48.0 [facility] Comment on above: Performed By: #### 4 [id number] #### [facility] [address] [place] [address] Dr. Valeria Farris Hemoglobin (Bld) [Mass/Vol] 12.9 g/dL Normal 12.0-16.0 [facility] Comment on above: Performed By: #### 4 [id number] #### [facility] [address] [place] [address] Dr. Valeria Farris IG # 0.04 10e3/ul Critically high 0.00-0.[address] [facility] Comment on above: Performed By: #### 4 [id number] #### [facility] [address] [place] [address] Dr. Valeria Farris IG % 0.4 % Normal 0.0-0.5 [facility] Comment on above: Performed By: #### 4 [id number] #### [facility] [address] [place] [address] Dr. Valeria Farris LYMPH # 2.1 103/ul Normal 1.2-3.8 [facility] Comment on above: Performed By: #### 4 [id number] #### [facility] [address] [place] [address] Dr. Valeria Farris Lymphocytes/100 WBC (Bld) 21.5 % Normal 20.5-60.0 [facility] Comment on above: Performed By: #### 4 [id number] #### [facility] [address] [place] [address] Dr. Valeria Farris MANUAL DIFF REQ NO Normal [facility] Comment on above: Performed By: #### 4 [id number] #### [facility] [address] [place] [address] Dr. Valeria Farris MCH (RBC) [Entitic mass] 27.9 pg Normal 26.7-34.0 [facility] Comment on above: Performed By: #### 4 [id number] #### [facility] [address] [place] [address] Dr. Valeria Farris MCHC (RBC) [Mass/Vol] 33.2 g/dL Normal 29.9-35.2 [facility] Comment on above: Performed By: #### 4 [id number] #### [facility] [address] [place] [address] Dr. Valeria Farris MCV (RBC) [Entitic vol] 84.0 fL Normal 81.0-99.0 [facility] Comment on above: Performed By: #### 4 [id number] #### [facility] [address] [place] [address] Dr. Valeria Farris MONO # 0.6 103/ul Normal 0.3-0.8 [facility] Comment on above: Performed By: #### 4 [id number] #### [facility] [address] [place] [address] Dr. Valeria Farris Monocytes/100 WBC (Bld) 5.6 % Normal 1.7-12.0 [facility] Comment on above: Performed By: #### 4 [id number] #### [facility] [address] [place] [address] Dr. Valeria Farris NEUT # 6.7 103/ul Critically high 1.4-6.5 [facility] Comment on above: Performed By: #### 4 [id number] #### [facility] [address] [address] [address] Valeria Farris Neutrophils/100 WBC (Bld) 68.6 % Normal 43.0-75.0 [facility] Comment on above: Performed By: #### 4 [id number] #### [facility] [address] [place] [address] Dr. Valeria Farris Platelet mean volume (Bld) [Entitic vol] 9.9 fL Normal 9.5-13.5 [facility] Comment on above: Performed By: #### 4 [id number] #### [facility] [address] [place] [address] Dr. Valeria Farris PLT 244 103/ul Normal 150-450 [facility] Comment on above: Performed By: #### 4 [id number] #### [facility] [address] [place] [address] Dr. Valeria Farris RBC 4.63 106/ul Normal 4.20-5.40 [facility] Comment on above: Performed By: #### 4 [id number] #### [facility] [address] [place] [address] Dr. Valeria Farris WBC 9.7 103/ul Normal 4.0-11.0 [facility] Comment on above: Performed By: #### 4 [id number] #### [facility] [address] [place] [address] Dr. Valeria Farris CULTURE URINEon 01-09-2022 CULTURE URINE Culture Observations : MODERATE GROWTH OF MIXED GENITAL RIO. NO POTENTIAL PATHOGENS SEEN. Normal [facility] Comment on above: Performed By: #### U RCX #### [facility] [address] [place] [address] Dr. Valeria Farris GLYCOHEMOGLOBIN A1Con 2021 ADA RECOMMENDATION SEE BELOW Normal [facility] Comment on above: Result Comment: ADA RECOMMENDED LIMIT 4.0 - 6.0 ADA THERAPEUTIC TARGET < 7.0 ACTION SUGGESTED > 7.0 Performed By: #### P REGQNT #### [facility] [address] [address] [address] Valeria Farris Glucose [Mass/Vol] 111 mg/dL Normal [facility] Comment on above: Performed By: #### P REGQNT #### [facility] [address] [place] [address] Dr. Valeria Farris HbA1c (Bld) [Mass fraction] 5.5 % Normal 4.5-6.2 [facility] Comment on above: Performed By: #### P REGQNT #### [facility] [address] [place] [address] Dr. Valeria Farris LETHA BOX TEST PT SEND OUTo n 01-09-2022 SENT TO REF LAB 01/09/2022 Normal [facility] Comment on above: Performed By: #### N BOX #### [facility] [address] [place] [address] Dr. Valeria Farris TYPE AND SCREENon 01-09-2022 TYPE AND SCREEN Negative Normal [facility] Comment on above: Performed By: #### 4 [id number] #### [facility] [address] [place] [address] Dr. Valeria Farris US PREG TVon 12-30-2021 [...] by: GERARD GONZALEZ Date: 2021-12-30 17:14 Normal [facility] US PREG TVon 12-15-2021 US PREG TV [...] GERARD GONZALEZ Date: 2021-12-14 22:02 Normal [facility] HCG-BETA SUBUNIT QUANTon hCG,Beta Subunit,Qnt,Serum 571 mIU/mL Normal [facility] Comment on above: Result Comment: Fema le (Non-) 0 - 5 (Postmenopausal) 0 - 8 . Female () Weeks of Gestation 3 6 - 71 4 10 - 750 5 217 - 7138 6 158 - 82297 7 3697 -371284 8 93335 -295987 9 60907 -024727 10 90243 081610 12 96374 -691448 14 63196 - 95881 15 07313 - 92259 16 9040 - 28342 17 8175 - 70147 18 8099 - 01492 Jamel ECLIA methodology Performed By: #### P REGQNT #### [facility] [address] [place] [address] Dr. Valeria Farris HCG-BETA SUBUNIT QUANTon hCG,Beta Subunit,Qnt,Serum 65 mIU/mL Normal [facility] Comment on above: Result Comment: Fema le (Non-) 0 - 5 (Postmenopausal) 0 - 8 . Female () Weeks of Gestation 3 6 - 71 4 10 - 750 5 217 - 7138 6 158 - 04370 7 3697 -997438 8 70886 -019180 9 95422 -312159 10 84178 -897484 12 44064 -738129 14 26678 - 44157 15 79470 - 59572 16 9040 - 05899 17 8175 - 66262 18 8099 - 56695 Jamel ECLIA methodology Performed By: #### U DAPHNE LANDEROS #### [facility] [address] [address] [address] Valeria Farris HCG-BETA SUBUNIT QUANTon hCG,Beta Subunit,Qnt,Serum 18 mIU/mL Normal [facility] Comment on above: Result Comment: Fema le (Non-) 0 - 5 (Postmenopausal) 0 - 8 . Female () Weeks of Gestation 3 6 - 71 4 10 - 750 5 019 - 3838 6 476 - 02037 7 3441 -244718 8 87941 -025985 9 76155 -216822 10 52497 -067779 12 81983 -733255 14 96214 - 75377 15 10520 - 75927 16 0643 - 42822 17 6355 - 36520 18 4843 - 13203 [employer]ar[employer] ECLIA methodology Performed By: #### G LU1HR #### [facility] [address] [place] [address] Dr. Valeria Farris PREG QUANT HCGon 10-05-2021 HCG QUANT <1 Normal [facility] Comment on above: Performed By: #### P REGQNT #### [facility] [address] [place] [address] Dr. Valeria Farris HCG RANGE SEE BELOW Normal [facility] Comment on above: Result Comment: 5-50 0-1 WEEK 40-300 1-2 WEEKS 100-1,000 2-3 WEEKS 500-6,000 3-4 WEEKS 5,000-200,000 1-2 MONTHS 10,000-100,000 2-3 MONTHS 3,000-50,000 2ND TRIMESTER 1,000-50,000 3RD TRIMESTER Performed By: #### P REGQNT #### [facility] [address] [place] [address] Dr. Valeria Farris FREE T4on 09-12-2021 Free T4 [Mass/Vol] 0.88 ng/dL Normal 0.76-1.46 [facility] Comment on above: Performed By: #### P REGQNT #### [facility] [address] [place] [address] Dr. Valeria Farris TSHon 09-12-2021 TSH 1.564 uIU/mL Normal 0.358-3.740 [facility] Comment on above: Performed By: #### 4 [id number] #### [facility] [address] [place] [address] Dr. Valeria Farris TSH RANGE SEE BELOW Normal [facility] Comment on above: Result Comment: <0.3 4 UIU/ml HYPERTHYROID 0.34-5.60 UIU/ml EUTHYROID >5.60 UIU/ml HYPOTHYROID Performed By: #### 4 [id number] #### [facility] [address] [address] [address] Valeria Farris US VENOUS DOPPLER L [...] by: GERARD GONZALEZ Date: 2021-09-12 14:31 Normal [facility] Coding Summaryon 10-16-2020 Coding Summary HTMLBase 64 QaugzwsxFLg1qGw+PGhlYWQ+ CI1KEPNcJ70zxFJciE0UH4kI LC1GVYUGCHHZXG1FZB8tzBU9 MVfbK8EqosPx PiswzUUnWY50HAm7FAX3cNll AYuvrM9rsXQpU8d8WlIiLV80 cX57SFpgNAXdCkH1EwZglhbj bWFy R2wjSyVltKZmXke+PHRhYmxl IHdpZHRoPScxMDAlJyBzdHls HE4eFc5iQERgDDYxlGufjAAo OiBj y3wwBBMzYBauHP2unMcoB3Sp kQR7HGVob6h1If16tYK+PHRk ODF8oGutXRrpy711LmBcc5ap IDM3 nYVtRJtzHUL7H95qv8T4SXCo HOBeBOK5iKS4oO1mwYbkpaun F4ZszGHuJfQ4GWW0eJArpR2n bGln gttkjV3hFbb+X71WMH9HBSCJ YL6BOjr4I8JfMxgxiSP+PC90 GJXzBG96hADekMEwu0mjtXs4 JzEw SWZeWJX6uIovTBoby3DoVUJm U77roMLmx8Q3GSOhcFxjdFBj AaFaeRN2aI5pOEnotjpyx0vs dzsn Izexn4west73zQ99G89zAVwp EODyBKP9ZYEpPRSgrDkzrc0s kU0pTb3+KNpjo0ahb1rpaNk7 IjIw TIMwkyDmbPvbJDN3y1AgUo27 P6XktAcpc9FgHew9au76gDNo q3W9pRH0NBezYJWmtY4eMXfc ZnQ6 WUSfVoSvfV93pVOrADqhDp9e tRwbnUonUU3lMWCtkifvZKXi jI8hSAWjyQLmpQsqVF5kOIFm bjtm e637WdPfSTP5QPPrnIGdU4Tu hF7kQoGlPHMmIKPvK5TarYYl CHpyY304AKzxErF8JAHbxrNy Y2Fs QFLdpXfwMjC0u5O8Bo4Pq0Pc qawgHVF2VUtyYSW2VmT4IaBa BuC7Z4VpLsj4WPYemFeeAC4s J3Bh IRPhksyetfnrjXZ4HUZhRWYu aK68iRPgJBnfEn5un9Z9l024 AKOoUQUbgW23Hd4zzYqjCPTq dCBU fD6sfjfrx2avmpoeIcVqCOPf XMp7RNg1OFLveLqzZwEiATY5 WaR3IRK3zKWknI3vePegkafn dG9w Oyc+Z02cvP4eVRM0GWQ6lrfb LAGmifCoXB65VC59X4ZmAqmi dGFibGU+MPYhxxOkzKlwNG3w YmFj y3vba0WtGNtqC9NyXLAzSQjr Lht3EOGtQTZ1aEO0cP5pVRUh OCqem3K1nBZ6M4LiaeWgyy7b b2xs WQTkTTzyN94uePMhc6B4JYGe hMV9NOXqsQkfUpBynW53Gox+ QUIdqFoib1YgXtaan7urq6cn dGg9 CzHzCUXoteFdnSlwKEB6b5Nv Mp76K58hDVlvRPMqKGBfEXRk BCWqbEowrm5uhK7wDa3+PGNv bCB3 hRP2qT4pBRVfQoO6EAtsW681 IoXzhAEtKuuig8vmo2faiJo6 AfBfJEMwrnGisNmvYFB1i0Zu Lz48 I83iKOzwOXHlTEAhPXKmQKJr nZvgpt6rhU7gKb5+HL3wm5bf qt92lC65cSV+KGNqZGF3sSat PSdw MNBwzH8sLQkdMcS2OZNkZhXy fF42jOTlELabNh6uyXwzqDtc TN2tIJCamnolw443UnQvj7ek IDEw tPPhTXawRAY0H77us9K0FIKw VYJoJCR4qXP7yS5flUrhufxd bGVmdDsgdmVydGljYWwtYWxp Z246 IHRvcDsnPlBhdGllbnQgTmFt ZPf6C9HyMhc1TVPdhHafFM4t gAZkXUdgXn2uwOwusHuxDR9n NTBp nlqxh019JsKsf0uuFOTmmIJm DNfdRKA5K53ko8H2CLRfCXOz DGL5sCZ5gA9ohAjnpsxgnPUp dDsg fjYhtBbaWMysEPwaD693ARVt sPdfNfNcqpEwODZyeUH2RD13 SO20eMJqt5N8xCE1B6ZvBYCs bmct pqswqSA9SRLhPFJgbN72Lr2n nSngTo9kUYUpMGS7RSPyuCHj O7IvnW2dYzNgMGLnGJEmV7Xz eHQt LTasD561HEbmUuA5SWQrpgKv I0QdRBEvjMdgBvI0x9H9Cj4F M9X0WN38PR53bQGgb2G0zCL0 J3Bh MVRysfzijbxhkQK6FXPiXJXu tP66Pu1vcXtfZs5mFEDkENN3 CNOxlQRjE6PtgD3lKyWjJFWv MDAw K0UbqCXjGXqvE998ODkuPyN6 QAOhxfWvX2OkGRAxxFbuAbU2 y2O7Fe1ZVHe6IY85VI31bRMz c3R5 mJT3C1HrSYXiscliomarzBC4 FTYvXUYsxG59Cl1ruScqIr3k ILEmUFX8ATByeJMoK6XwaX2h OiAj PURlNYKkO1HvnTJtYYkbR360 YAbkAvK7OLUjalMiZ1NgNXWl dGjbSzH0y0J6Hx6BDLByOB82 IFR5 dTE9QS67TD65W7YoCmjtsCSe bGU+PHRhYmxlIHdpZHRoPScx REWfLjKliMnyCI1lWx6dVVRc LWNv tDvxnRFaVqIxe9mkDYZkTRxc RQ4nuAqjG6ZgvPU6ZQCnw4l6 Mf47B29pL2CsgPW+PGNvbCB3 aWR0 dJ4oIvRkYtL7CRvuP543QxZt jWSxXjwmh5div7lecMu1CpQ9 NEItadOlbLcaOFL4i8UyWo40 Y29s IHdpZHRoPSIxNSUiIHZhbGln xp8shR6gAx3+WBKmvTB5cHY9 sX3vHsRmYaG6WEtsY810SkOl cCIv Ukcat5fui6lezYr9VfFuKQAw raRegNxoWFO3g3SjNf47A3Vo oRreu3GyQiy0ti21jWTwd5O7 bGU9 R3MzOHRadiiroYTqpKybSL9t XFJchnmjDPIcoM6nWYVuF5b3 VhAxYcF2RFxwA8FskqI6OODj cHQg GTvaJBT7B35wa6U3ZKVfTRDc EQZ5qKS3aC5efKubdbzjtSWs cAisnfPhxAumGTomMIcrJ944 IHRv wOasWJIomT8gCXZdzFMkgFxn EP9oXEJussjdRhWIYaASZpCV LCBNRUdBTiBNQVJJRTwvdGQ+ PHRk PWT3xJoyFAynNCLwoG2sACYh Z6z1WvFiUrE0KVidQ0YbZUQj hbcoTt00pR5sVqFvCyX5RMvi O2Zv foQ8BGIfeKWmDLesNCW3J21b n1R1YIYeTYFnTCK4vUZ8xM4q bGlnbjogbGVmdDsgdmVydGlj YWwt WUnkJ051DRTfzLbfAxHcSjW5 NoS5LUI5H2RbEmr2FETwlXsm HD3lmDNdGBeqVp1abDweoOlr MC4w VYBeqyxdZAGsbW6yQKXxkLTy dLobHA4kDEKjuggor555BoZp SVV2RVYfpZIpY3JdnE9yLdGj MDAw ZHGuC0SyfXLtFHwgK729GHvh XiQ2EFSjiiPlW9IwLBJkaIvn KvS9a5F7Od5fJSLTYHXtmbpp dGQ+ JHUkWVY9xUnbOTrsMLWjaD3p JKSaW6r4QbZtDgQ9DSfzO1Kt FARntzlbUi38jG7vMxCrOaB0 MGlu N5NkecW9PESfdRZwBZbxZCS2 H39jr1A2ADUwXLKvUQO3kAX4 lJ7vdPmsdrlqxRDkjGggrwFg dGlj PSbuHRoaI776OOJmmUfxTaAT TUFMRTwvdGQ+ZQJuXCJ2xKjy PVhmQCRkgT2sWXTvX9s8DgFo LjA1 WUkvV7WeOVXusczlBn23yQ4s LcGmRlN7NBncR6TikeK6ZCQe cOYeYXvaXZT9J46gd0Y5XLEj MDAw FOT0iML7rZ6zxTuayzanwIQx xBpfhqVsbOoaKTnrVNiaM993 XVZwsWseCz2QTR34EA82W7Xm Pjwv dGFibGU+PHRhYmxlIHdpZHRo OEwgMLUiAbFxtKvgVO9gGl5a RXZfTAVwlCjyxHNjZrBib6rw YXBz HFwnJR6orQmoP4InnXS4CXJc e5f6Ub15E13uE6MjwRS+PGNv nNM9wPG8rK4oHaShPeE0YJnm Z249 EtIueJPyYqiew5ykc5nyxKy3 EgUiTYThrpCumMdyCEU3y5Zg Nt65L09aTIhqMJNkWWQlWDBd IHZh hUfbkp6auZ8cCr6+PGNvbCB3 oXG7vZ9qCsJkMoU0TOmjJ060 FrXrnCPgOascD77wH8JhhJP+ PHRy Huo4VCIatUnqIR1fbWUnZSrg Vm5kOTB6BeMpWkHbVUqyJ4Qa VMSqejxjcaazoEO3UPWzRKQd aW47 Tn7bdLhiGs7hAVHbTNC4WCTn vTOmX6UzpW6zVoJcBGNxEICy E8NumVVvZLlwJ945LZzgHpR0 IHZl ngEuY0BiTIZicGlmQhH1m9L7 Ua4IvTsygGElBC6cPvRfFYa8 B9GkMch4GYYpoTqoND3jyLPr ZGlu Ml6diQyjtLlkHV5wSESrzoif j189GnPar0fgPSFeuGPxGJhq ZTP8T50km6N8ZFExGTMsWNA8 dGV4 jB3uuKwjgarkyKUxbCbakuMi mRvhJOiuQGnwS318PDAlpIvc GfRDKak4Z6VcSks1QXGggYvh ZT0n oFNlOPxyXs0tkFiexVbeUE9b XRHvqtedd788AiAgd8ceCNHa lMAiWZrbJRD4E36wo0J5MRZv MDAw BAZ8wPV3vY6mpDchejwpcZAy zLiyasSwjZnpDCdlBZlfQ652 VIJtxVmsQl8UPjl9R9LaOsn9 ZCBz cWfdVS1wcDMkJBlxTr3koJxt qUvvJV2yYNSvjubmg297VdYe r4kvWCInlXLzBGjhTIT6X75o b3I6 ZIOqXFFuXDY7jCA2bI0doZwz bjogbGVmdDsgdmVydGljYWwt NIbvA646NSBrmEtqXiNxyKVg Ojwv dGQ+BK99ws46F3QkLbkcYoi5 KJRoEKP7gHU4tQ6tHFFhURnf r7C3wQD6H6GnyyTjgk7jg9md YXBz ZTo (more content not included)... [facility] Coding Summary HTMLBase 64 LvsxxyulUOb3oGf+PGhlYWQ+ MX7KRECiM73clOInjE8OS2tU WZ5NLGOLKQWYSA5OJL0bqBO9 IRthJ2AqyyFi SilijYQqBK38LKl7VAI2qLih EKfbmA1vnGGwA0a3DvDrDS17 zM41ERhnWHSiYaK2NhHzbysv bWFy K4acNuLjuMEbQob+PHRhYmxl IHdpZHRoPScxMDAlJyBzdHls TH5wEc5fDAPjCIFpxZabnBZf OiBj z3pvTDZwCGiyVQ5mwCnwP8Oh uSC6BPMeu9e4Re85jLJ+PHRk JTA9eXtxBZdzd669NmAqe9hx IDM3 tBSyLOgzOGG1P87fo1J1PRHc UFNaHOL8xIM6lC2zcXzyksjc R2MepMXlXuC9TQL3uEXgrK9r bGln djmfpI7rSdf+R27VBR0ZGBQG GN2EKgf5O2FrDhnjaDM+PC90 XBQjZJ87tSErrYPco3hrmQw8 JzEw CDYyPWT2eUicGKqfr7KqGZIo R51uxPRvn4O2IUDweSyitANw BsDexFJ6hI7mMVzxgnsej3mx dzsn Opjxq4bnfi18vR40V26eRXfi IRVoGIX5JORzFKWbmXcscq3b uS3sNq2+CBihm1zks3znnHc6 IjIw JGQeevYjcSrkASA0g2AcOt43 W7SusBwqa8PfIbc2zd24dJKt l8P2uOY5MChrPVAvtJ9qNLbv ZnQ6 YKEtVsTuuV49vDEmYAmeMe1f nRaifAwqZF1pRMTyossvWHRx hM0wDVWkqTMccSjxKH3eVCBi bjtm r712WgEuUTZ7OCWabNMiT0Ml xI0tRcGsQAIqABImM9GcqYHk DTyoI813SGlkXsY5MLPtxsOy Y2Fs RSQihVdzPpL9c3S5Ux7Zv4Ft ksdyWIR8KYazCLA4FxE3SkHc QvG5U9IoNoe4ZBRsjHanYP7x J3Bh JTBvexuwezcbtUZ8FWPuMUPy bA58oWYsYWnxHe5tk8V0h117 SNJiGHXssK91Dt4pkZtpHVNc dCBU rW6furpvp4pjuyotSvBqSQQm UBf0HPw4OPGypIscXmQdQIT3 OwQ8QKC5kGYjlJ0gwKeeeorz dG9w Oyc+N30yrZ9rNVM8RWE7hbjw JZGmeyMhGU17AF11F2DvCfze dGFibGU+GZUmieZymNvkYU1s YmFj f0lqu9KlQHuoI2JxFDUiJQpn Dnk8QUBtQAF1pNU9sQ2tZPGc EMzcc2D3hHW3N0VdkuYhij1l b2xs EWJnAVatB18xjMYuo7L0RMNp jLO6ISEbrHooLzQmpY89Vto+ YJIosLhjy9XoRcetq4zja3cd dGg9 ByAqJREnerAeeJzwNWC4y3Mj Qe48A01qOCdcCJQqERZyAEBj WTZueGkfhx2ymO5oAf3+PGNv bCB3 hSP8wE8wTLKsNqJ4OAveF228 UkDuwCHuAtnel7jnd8agkKy2 YqBkPVGxjeCcxFtqFOX7y4Mh Lz48 C60jIHjfWGEiAYWjMHBlVSKr kQqumw5lpP2rNh3+QH4vp8bp dw32eQ35zCE+JJKbGJX8xAcp PSdw PTArbL9pASpqOjK2MVPzViVn dN55iFVfOWqtEo8enHrflCtr AF7hKNYyilnyp431RwClm8qt IDEw mMMdTAteNFB6U73hc5H7XKWs XXFdWAN5iTI5tG0xiCzdifmd bGVmdDsgdmVydGljYWwtYWxp Z246 IHRvcDsnPlBhdGllbnQgTmFt RFk5P3OsNel3SMQjtMgkOF8h fQKdXDajRn5glPnfmUpzAK4j NTBp raewg273WkOqr7jkQJTliESx BSvxPHB6Z95hl4Y2OXQrMKPx MAQ6iBG2uC5yhRsjakqsyDAm dDsg zgFvuSsfTDvvFVafM234MWUt jVcnWoXyixTtWHIcrMY2IG71 FT46yTXhm7P1wMK8M3LbGSCj bmct vzzpwRF3AHVfHWVcmP28Un3o uXcbGr5qETGyDTG9RGBneQCf V3ExrL7uGcFbSMXuXRBhW3Dq eHQt RQyfA155TLeiFfV8CLKpgiZv Y9UwEOFecHopXpC0g8A6Ty6A A0F1GR70OA35zAJuj0O1cDZ3 J3Bh XGAyafspxzdqqZW2AMNdSYXy xT01Zw3edPwjYj2sWYZwTUR2 EXLxnDJcH1UoqD7cNqXuCCIl MDAw J7DppRSiTRjpW106ERbpYfW7 WCAadjPrQ0SyGSBbxEqhPyY6 o9V6Mq2FNPm3WL42YQ78oMXo c3R5 yRD1I7WeDTFhclvmkjzncQJ8 RBHrKOEdnI01Ms1kfUxdDo7n SXHrROZ8KTBqmWUlC9SysH9i OiAj LRTaLUEkL9XwyUAnBLgkM875 ESplFlL3BVHdleZuH0AbOUSh rFtwXsC4p4Y1Fr6CCFTnTW47 IFR5 uNM0QN81SW05N8OeBsssoVVp bGU+PHRhYmxlIHdpZHRoPScx XHOcNqUkiJwjFS4sWa6pUXFe LWNv xLpjwSNcFsOvd2jxREOvQKip BV3bmNusO9MetIJ6FJUxp2a7 Uv81T73vR2MbzCO+PGNvbCB3 aWR0 fU7zYdAuFfE0LMngU866LiGh zMUvCwjdr5jju1oslCh3SpR7 DPJyduKecIisTUF8e8NrGh40 Y29s IHdpZHRoPSIxNSUiIHZhbGln hq5rtT4pMp7+AMAmpRQ1gWK7 wN2pAeQqZoP1XHvqU297QiTf cCIv Cnqmz0erw2afaRi4UfBaLGXb gvShnBpcTUK1m9NkZo58O9Vi vOywd4MkMzr1cv62jRBpr1K0 bGU9 W1JfFIZxchpvmGVqhCboRG9o GVXybeteIHXbfH1dGENaZ9d6 ItBbSuL1VDbnP9HrdxB8SMLz cHQg EDzvRQX8V68ff7S4MPAwAQZp UEP9ySE9iV7lxSlqltuwiDNy zZtlwrVjpJamLVbsIYlvZ628 IHRv aRhyDZAbmW9eCZGioDYefUkr AN9uTIEuuyqiPdCWWiOGFzCU LCBNRUdBTiBNQVJJRTwvdGQ+ PHRk JNJ5ePxjCXpwEIVjcV2yGZHw D3w6HwPbKcM3NTcyS7QtPOTx quzzCv80eT2aLzFoUbA2INyy O2Zv rbZ3IDVvxIQrYAxbIKM5W56r g5Y5DXVfNUKgOYV8tAP2bC0k bGlnbjogbGVmdDsgdmVydGlj YWwt UXvhS429QSUkqMrjVaSaSaB9 RhB6QAF6R4TyUmx2IJYceGqa XU2kxBFhDXyjXi6llQowwOiy MC4w BKJexvofSKYucW5gIVUovIZs lOqhBV0rDWXtwcelv805WlHw YPH2GORyjMEtD0PquF9fQhXy MDAw VDCiR9GieQLeUQywJ767QSwq EmZ8EHOfnpKuP5ItTDDfoXbx LeQ9z8W2Db0cUHUDAIAdfjln dGQ+ VRSsXSO4hGdhLVitILDroY1v PBLqY2w6IuHpBkS7BSswY3Lv UNOwxhklBe06aD9hNxTnZbV3 MGlu H6NnakN8NQHanQIlMRraPOL5 Q78pd9O1IRPhZCUmQGO2eAS8 rG1bhWefunyavGDueGjdpeHe dGlj AGksZNxpX390QFXebQlcHfPV TUFMRTwvdGQ+OCMaDLY7xBqf SDbbUAAlwC4kLVBaR2n2TeVq LjA1 YXwsT9FsIGMejmftVc22dA6f FuZgJhL3SKbnG0EwoxK6XMLg vFIxOIxxFTE2I04lq6T7WQXm MDAw DNV5hMP6oT2vnEzzcgbqnWTp vSeyzzUwiSqxPHcvFPqbI897 VJTgfFckOjFgSDPtAK5ksDtw dGQ+ CF62tw71Z9CxXskxOsa5PSTo JRR1uBG3yD1kMDRmFBmsg1T7 yWS9K9KaahMprq8nd8jmLMKu ZTog F89pnVFkc6E7TYUitQW6EASt bIdhNsBghH24Olx+PGNvbGdy u5TfQwdbr0odj5hisLl0BrOv JSIg tyMfeTxmGMM4t7EkDf78H21z IHdpZHRoPSIzMCUiIHZhbGln on6akL5fAo9+FONvmEU5rOC2 aD0i LzHePpL1WJqrC508UkSryNSq Xkbui5pgj3yfqJe8PnZtJDMw flZasDhzXIZ5y5OdVl95D2Nx bGdy i3OyBxw5vx80mTJxs2Q9oOJ5 A3LqFFLqefrhdCFeiUcwMP2c IAJhkqjvMQZpdZ4hGEIwX2x0 OiAw MoG7WKwvD2GjxvC3KPBnqFJs YFSasCSBaL3mbeqcq3wiofjy DxFuJZZgQMs9WEn3ZRDngLrm OiBs WXF4JgK6VSS2qUVknG0afJkw kumtvM1lGnn+NEn1q2ajpHZt IE2wdJU4IU82NN14aVIml6A3 bGU9 Q6KsQNIjovxvxoknyIS8FTAs ZRDzfS62Ig2qcXleBt8iFIHf COJ3AVWkcXOeN1XxxW5zEtNg MDAw KXGbK4SmfDOmQKjbG652YPfc OgG9WADwqnNqF2JbQWQcsExy PzM7d9H8Qe2SLO40MO38RH79 dGQg g4Z0bQA7J0GwSSCzanssltgy uTP2ZGYxNLHdlU43Br4tpFxq He9xBNRbJIU4PCQfjOXjO8Ur bG9y ZyLnLOEsLUWlG0PepEPjMKsu G512ZPyfKiB5DTUgkzZxZ6Zu IJNohJpvIoY1s3E1Lq2YTn06 PC90 LY46lWYgm3Z3mNZ4K9XoXPCn cztohsfnlXW1EJRyGMGewL43 Pf0eoZrhEf8wCTCqSWI3NVKw bWVz X0MqbC8mKbOiVFNfIRSuD7Wq qNSjQHchA219MXdoYwU6XITs coEjQ7FuDPRutRijFaK3d3R6 Jz5Q JFecmiv2Q9WnYrfeyZN+PC90 HMXsSA21oKLbnTVxb7omlQi5 FzSfPARhLKP0iPmeGKzsn7Ch ZXIt Y29 (more content not included)... Normal [facility] .Auto Diff 10-11-2020 Auto Letcher % 6 % Normal 05-04 [facility] Comment on above: Performed By: #### 7 388265, [id number], [id number], [id number] ####[facility] (DEFAULT)[address] [place] [address] 92283 Baso Abs# 0.0 x10 Normal 0.0-0.2 [facility] Comment on above: Performed By: #### 7 107839, [id number], 46447434, [id number] ####[facility] (DEFAULT)[address] [place] [address] 84839 Basophils/100 WBC (Bld) 0.3 % Normal 0.2-2.0 [facility] Comment on above: Performed By: #### 7 881440, [id number], 75824239, [id number] ####[facility] (DEFAULT)[address] [place] [address] 27477 Eos Abs# 0.2 x10 Normal 0.0-0.4 [facility] Comment on above: Performed By: #### 7 519439, [id number], 78702550, [id number] ####[facility] (DEFAULT)[address] [place] [address] 87814 Eosinophils/100 WBC (Bld) 3.4 % Normal 0.9-4.0 [facility] Comment on above: Performed By: #### 7 503197, [id number], 75741560, [id number] ####[facility] (DEFAULT)[address] [place] [address] 71316 Lymph Abs# 2.5 x10 Normal 1.3-2.9 [facility] Comment on above: Performed By: #### 7 564137, [id number], 73655334, [id number] ####[facility] (DEFAULT)[address] [place] [address] 92244 Lymphocytes/100 WBC (Bld) 41 % Normal 14-48 [facility] Comment on above: Performed By: #### 7 354326, [id number], 93596337, [id number] ####[facility] (DEFAULT)[address] [place] [address] 38833 Letcher Abs# 0.4 x10 Normal 0.0-0.8 [facility] Comment on above: Performed By: #### 7 024353, [id number], 75884493, [id number] ####[facility] (DEFAULT)[address] [place] [address] 83208 Neut Abs# 3.0 x10 Normal 1.5-9.2 [facility] Comment on above: Performed By: #### 7 917711, [id number], 90906130, [id number] ####[facility] (DEFAULT)[address] [place] [address] 30181 Neutrophils/100 WBC (Bld) 50 % Normal 44-88 [facility] Comment on above: Performed By: #### 7 777606, [id number], 77715150, [id number] ####[facility] (DEFAULT)[address] [place] [address] CBC w/ Auto Diffon 1 Erythrocyte distribution width (RBC) [Ratio] 13.2 % Normal 11.5-15.0 [facility] Comment on above: Performed By: #### 7 460408, [id number], 02016336, [id number] #### [facility] (DEFAULT) [address] [place] [address] 43086 Hematocrit (Bld) [Volume fraction] 36.8 % Normal 33.7-40.4 [facility] Comment on above: Performed By: #### 7 083624, [id number], 50081431, [id number] #### [facility] (DEFAULT) [address] [place] [address] 80623 Hemoglobin (Bld) [Mass/Vol] 12.4 g/dL Normal 11.3-15.9 [facility] Comment on above: Performed By: #### 7 000369, [id number], 32655348, [id number] #### [facility] (DEFAULT) [address] [place] [address] 46986 Instr WBC 6.1 x10 Invalid Interpretation Code [facility] Comment on above: Performed By: #### 7 957230, [id number], 29774703, [id number] #### [facility] (DEFAULT) [address] [place] [address] 12833 Man Diff? Auto Normal [facility] Comment on above: Performed By: #### 7 284045, [id number], 18053995, [id number] #### [facility] (DEFAULT) [address] [place] [address] 93374 MCH (RBC) [Entitic mass] 29 pg Normal 24-34 [facility] Comment on above: Performed By: #### 7 492791, [id number], 99172538, [id number] #### [facility] (DEFAULT) [address] [place] [address] 69032 MCHC (RBC) [Mass/Vol] 34 g/dL Normal 26-37 [facility] Comment on above: Performed By: #### 7 941244, [id number], 51385278, [id number] #### [facility] (DEFAULT) [address] [place] [address] 43934 MCV (RBC) [Entitic vol] 87 fL Normal 81-100 [facility] Comment on above: Performed By: #### 7 803380, [id number], 92646545, [id number] #### [facility] (DEFAULT) [address] [place] [address] 50622 Platelet 204 x10 Normal 138-427 [facility] Comment on above: Performed By: #### 7 076926, [id number], 77169438, [id number] #### [facility] (DEFAULT) [address] [place] [address] 09977 Platelet mean volume (Bld) [Entitic vol] 9.6 fL Normal 6.3-10.2 [facility] Comment on above: Performed By: #### 7 473714, 3358783424, 51749697, 1373909410 #### [facility] (DEFAULT) [address] [place] [address] 94391 RBC 4.25 x10 Normal 3.70-5.30 [facility] Comment on above: Performed By: #### 7 878513, 3568791976, 25115276, [id number] #### [facility] (DEFAULT) [address] [place] [address] 96736 WBC 6.1 x10 Normal 3.5-10.5 [facility] Comment on above: Performed By: #### 7 391366, 3378633094, 92358144, [id number] #### [facility] (DEFAULT) [address] [place] [address] 04884 CMP Standardon 10-11-2020 Albumin [Mass/Vol] 3.9 g/dL Normal 3.5-5.0 [facility] Comment on above: Performed By: #### 7 588846, 7210025246, 96427183, 2588698529 ####[facility] (DEFAULT)[address] [place] [address] 99448 Albumin/Globulin [Mass ratio] 1.3 {ratio} Low 1.4-2.6 [facility] Comment on above: Performed By: #### 7 469892, 2565517871, 55021450, 1713636142 ####[facility] (DEFAULT)[address] [place] [address] Alk Phos 67 IU/L Normal 32-91 [facility] Comment on above: Performed By: #### 7 510374, [id number], 97115480, 5781889083 ####[facility] (DEFAULT)[address] [place] [address] 20520 ALT [Catalytic activity/Vol] 28.0 U/L Normal 14.0-54.0 [facility] Comment on above: Performed By: #### 7 300484, 0850735892, 43871895, 4813900859 ####[facility] (DEFAULT)[address] [place] [address] 01118 Anion gap [Moles/Vol] 14.0 mmol/L Normal 5.0-19.0 [facility] Comment on above: Performed By: #### 7 115029, 8807332188, 88615451, 3559369619 ####[facility] (DEFAULT)[address] [place] [address] 91211 AST [Catalytic activity/Vol] 16 U/L Normal 15-41 [facility] Comment on above: Performed By: #### 7 127185, 2336772459, 22575402, 4845430911 ####[facility] (DEFAULT)[address] [place] [address] 32170 Bili Total 0.3 mg/dL Normal 0.3-1.2 [facility] Comment on above: Performed By: #### 7 638549, 5491865285, 51663428, 2532815215 ####[facility] (DEFAULT)[address] [place] [address] 57401 Calcium [Mass/Vol] 9.0 mg/dL Normal 8.9-10.3 [facility] Comment on above: Performed By: #### 7 123671, 6470563072, 19761911, 1218466064 ####[facility] (DEFAULT)[address] [place] [address] 58151 Chloride [Moles/Vol] 109 mmol/L Normal 101-111 [facility] Comment on above: Performed By: #### 7 835651, [id number], 82630795, 5350654062 ####[facility] (DEFAULT)[address] [place] [address] 42519 CO2 [Moles/Vol] 21 mmol/L Normal 21-32 [facility] Comment on above: Performed By: #### 7 570880, 7119533359, 81876099, 9539816250 ####[facility] (DEFAULT)[address] [place] [address] 80334 Creatinine [Mass/Vol] 0.90 mg/dL Normal 0.60-1.30 [facility] Comment on above: Performed By: #### 7 414335, 6833964125, 44174027, 5134714858 ####[facility] (DEFAULT)[address] [place] [address] 76855 Globulin (S) [Mass/Vol] 3.1 g/dL Normal 1.5-4.3 [facility] Comment on above: Performed By: #### 7 460579, 3415622924, 93399807, 4694254146 ####[facility] (DEFAULT)[address] [place] [address] 99147 Glucose [Mass/Vol] 95.0 mg/dL Normal 74.0-118.0 [facility] Comment on above: Performed By: #### 7 065800, 7712468527, 90364962, 3436316909 ####[facility] (DEFAULT)[address] [place] [address] 94170 Osmolality 282 mOsm/L Invalid Interpretation Code [facility] Comment on above: Performed By: #### 7 099547, [id number], 14847215, [id number] ####[facility] (DEFAULT)[address] [place] [address] 28462 Potassium [Moles/Vol] 4.0 mmol/L Normal 3.6-5.1 [facility] Comment on above: Performed By: #### 7 543923, 5574138871, 24819287, 9972452027 ####[facility] (DEFAULT)[address] [place] [address] 57740 Protein [Mass/Vol] 7.0 g/dL Normal 6.5-8.1 [facility] Comment on above: Performed By: #### 7 945475, 4001005103, 69162827, 8934369472 ####[facility] (DEFAULT)[address] [place] [address] 82658 Sodium [Moles/Vol] 140.0 mmol/L Normal 136.0-144.0 [facility] Comment on above: Performed By: #### 7 319501, 2065637914, 44858455, 8007011611 ####[facility] (DEFAULT)[address] [place] [address] 37788 Urea nitrogen [Mass/Vol] 20 mg/dL Normal 8-26 [facility] Comment on above: Performed By: #### 7 952152, 5958739401, 39017409, 5479449586 ####[facility] (DEFAULT)[address] [place] [address] 99804 Urea nitrogen/Creatinine [Mass ratio] 22.2 mg/mg High 4.6-16.2 [facility] Comment on above: Performed By: #### 7 326365, 4238167126, 71912890, 2104008341 ####[facility] (DEFAULT)[address] [place] [address] 67840 Discharge Instructionson Discharge Instructions [id number]#[id number] TIFF Normal [facility] ED Clinical Summaryon 2020 ED Clinical Summary [facility] - Emergency Department [address] [place], [place] [id number] ED Clinical Summary PERSON INFORMATION Name: YANI WOODY Age: 30 Years Sex: FEMALE : 1990 MRN: Acct#: Visit Reason: Pelvic pain; PELVIC AREA PAIN Arrival: 10/11/2020 09:15:57 Discharge: 10/11/2020 12:33:00 LOS: 000 03:18 Check In: 10/11/2020 09:15:57 Checkout:10/11/2020 12:33:00 Address: [address] [place] [address] PCP: Provider, None PROVIDER INFORMATION Provider Role Assigned Unassigned DAVID GALVAN ED PA 10/11/2020 09:24:51 Linn Decker PRODUCTION CELL LEADER Nurse 10/11/2020 09:28:06 Kristi Case PRODUCTION CELL LEADER Nurse 10/11/2020 11:45:12 VITALS INFORMATION Vital Sign [...] test which were negative. She contacted her coach tour driver who indicated he could not see her [...] - pharynx pink and moist. NECK: -Supple ([id number]-[id number]): non-tender. CARD: -Rate and rhythm: Regular -Edema: No -Calf pain: No RESP: -Respiratory effort and chest excursion with respirations: Normal -Breath sounds equal bilaterally: Clear -Wheezes: No -Rales: No BACK: -Signs of pain with movement: No ABD: -Distended: No -Bruits: No -Bowel sounds: Normal. -Deep palpation: Non-tender, soft, no guarding or r (more content not included)... Normal [facility] ED Note - Physicianon 2020 ED Note [...] test which were negative. She contacted her coach tour driver who indicated he could not see her [...] - pharynx pink and moist. NECK: -Supple (inzq-by-pfhwr): non-tender. CARD: -Rate and rhythm: Regular -Edema: [...] report. I r (more content not included)... [facility] ED Note-Nursingon 10-11-2020 ED Note-Nursing Patient arrives to [facility] ED via private car with c/o [...] within reach. Will continue to monitor. Normal [facility] ED Patient Summaryon 021 ED Patient Summary [facility] - Emergency Department [address] [place], [place] [id number] PATIENT DISCHARGE INSTRUCTIONS Patient Information Name: YANI WOODY Age: 30 Years Date of : 1990 Reason For Visit: Pelvic pain; PELVIC AREA PAIN Arrival Time: 10/11/2020 09:15:57 Primary Care Physician: Provider, None Attending Physician: Linus Neumann MD Comment: Visit Diagnosis: Diagnoses This Visit Ovarian cyst (N83.209) Pelvic congestion syndrome (N94.89) Pelvic pain ([id number] -[id number]) Prescription Information: If you have been given a prescription for narcotics, seek immediate medical attention if you have any difficulty breathing or any sudden status changes such as confusion and sleepiness. If you or anyone you know is experiencing suicidal thoughts, mental health, alcohol and/or drug addiction problems; contact the [facility] 13/11 Crisis Hotline -Text 4HYDY [place] [phone]. If you received any narcotics, sedation, or [...] any legal documents With: Address: When: Cordelia [address]ue [address] [place] [address] [facility] (1) Within 2 to 4 days Comments: Follow-up with coach tour driver in the next few days for reevaluation. Return at anytime for reevaluation or if you have worsening symptoms, vaginal bleeding, chest pains, shortness of breath or any other problems. Continue to stay hydrated. Medication Information: The exam and treatment you received today in the [facility] Emergency Department were for an urgent problem and are not intended as complete care. It is important for you to follow up with a doctor, nurse practitioner, or physician?s accountant assistant for ongoing care. If your symptoms become [...] so we can reach you if necessary. [facility] Emergency Department has provided you with a complete list of medications post discharge. Please inform your resist coater developer/provider of your visit and for further instruction [...] (Inserted Image. Unabl (more content not included)... Normal [facility] Extra Greenon 10-11-2020 Tube Collected Yes Invalid Interpretation Code [facility] Comment on above: Performed By: #### 7 488433, [id number], 14762451, [id number] #### [facility] (DEFAULT) [address] [place] [address] 77930 Lactic Acidon 10-11-2020 Lactic Acid 12.4 mg/dL Normal 4.5-19.8 [facility] Comment on above: Performed By: #### 2 [id number] ####[facility] (DEFAULT)[address] [place] [address] 51980 Test Urine 1on U Preg Negative [facility] Comment on above: Performed By: #### 3 [id number] ####[facility] (DEFAULT)[address] [place] [address] 04742 U Preg Internal Control Pass Normal [facility] Comment on above: Performed By: #### 3 [id number] ####[facility] (DEFAULT)[address] [place] [address] 27042 UA Iufzm3fj 10-11-2020 UA Bacteria Rare Normal [facility] Comment on above: Performed By: #### 2 [id number], [id number] ####[facility] (DEFAULT)[address] [place] [address] 48273 UA RBC 0-2 Normal [facility] Comment on above: Performed By: #### 2 [id number], [id number] ####[facility] (DEFAULT)[address] [place] [address] UA Squam Epi Few Normal [facility] Comment on above: Performed By: #### 2 [id number], [id number] ####[facility] (DEFAULT)[address] [place] [address] 34967 UA WBC 0-2 Normal [facility] Comment on above: Performed By: #### 2 [id number], [id number] ####[facility] (DEFAULT)[address] [place] [address] UA w Micro, if Ind Standardo n 10-11-2020 Micro? Indicated Normal [facility] Comment on above: Performed By: #### 2 [id number], [id number] ####[facility] (DEFAULT)[address] [place] [address] Breakpoint UA Normal [facility] Comment on above: Performed By: #### 2 [id number], [id number] ####[facility] (DEFAULT)[address] [place] [address] Color (U) Yellow Normal [facility] Comment on above: Performed By: #### 2 [id number], [id number] ####[facility] (DEFAULT)[address] [place] [address] 49853 Glucose (U) [Mass/Vol] Negative Normal [facility] Comment on above: Performed By: #### 2 [id number], [id number] ####[facility] (DEFAULT)[address] [place] [address] 27149 Ketones Ql (U) Negative Normal [facility] Comment on above: Performed By: #### 2 [id number], [id number] ####[facility] (DEFAULT)[address] [place] [address] 70546 UA Bilirubin Negative Normal [facility] Comment on above: Performed By: #### 2 [id number], [id number] ####[facility] (DEFAULT)[address] [place] [address] 33910 UA Blood TRACE Abnormal NEGATIVE [facility] Comment on above: Performed By: #### 2 [id number], [id number] ####[facility] (DEFAULT)[address] [place] [address] 49490 UA Clarity CLEAR Normal CLEAR [facility] Comment on above: Performed By: #### 2 [id number], [id number] ####[facility] (DEFAULT)[address] [place] [address] 34715 UA Leuk Est Negative Normal NEGATIVE [facility] Comment on above: Performed By: #### 2 [id number], [id number] ####[facility] (DEFAULT)[address] [place] [address] 64227 UA Nitrite Negative Normal NEGATIVE [facility] Comment on above: Performed By: #### 2 [id number], [id number] ####[facility] (DEFAULT)[address] [place] [address] 06328 UA pH 6.0 Normal 5-8 [facility] Comment on above: Performed By: #### 2 [id number], [id number] ####[facility] (DEFAULT)[address] [place] [address] 72446 UA Protein Negative Normal NEGATIVE [facility] Comment on above: Performed By: #### 2 [id number], [id number] ####[facility] (DEFAULT)[address] [place] [address] 79687 UA Spec Grav 1.025 Normal 1.001-1.035 [facility] Comment on above: Performed By: #### 2 [id number], [id number] ####[facility] (DEFAULT)[address] [place] [address] 41915 UA Urobilinogen 0.2 mg/dL Normal 0.2-1.0 [facility] Comment on above: Performed By: #### 2 [id number], [id number] ####[facility] (DEFAULT)[address] [place] [address] Urine Source Clean Catch [facility] Comment on above: Performed By: #### 2 [id number], [id number] ####[facility] (DEFAULT)[address] [place] [address] US Pelvis Non-OB Completeon 10-11-2020 US Pelvis [...] Dominguez MD 10/11/20 12:29 p Technologist: PM [facility] US Transvaginalon 10-11-2020 US Transvaginal US Pelvis [...] Dominguez MD 10/11/20 12:29 p Technologist: PM [facility] Video Visit - Telehealtho n 01-28-2020 Video Visit - Telehealth Chief Complaint Medication follow up via [employer] video Subjective Interval History/HPI This visit was conducted via two-way, real-time interactive video communications from my office using [employer] due to the restrictions of the COVID-19 pandemic. No physical exam was conducted other than those areas of the body visible to telecommunications with the patient located at [address] [place] [address] [phone], with no one else in attendance. If [...] Denied ongoing homicidal ideations, intent or plan. BH Language: Within normal limits Fund of Knowledge: [...] day(s), # 42 tab(s), Refills(s) 5, Pharmacy: [facility]/pharmacy #[id number], 156, cm, 01/28/20 8:32:00 EDT, Height/Length Dosing, 124, kg, 01/28/20 8:32:00 EDT, Weight Dosing 3. High risk medication use (Z79.899: Other correction (current) drug therapy) Orders: lamotrigine, 300 mg = 2 tab(s), Oral, Bedtime, # 60 tab(s), Refills(s) 5, Pharmacy: [facility]/pharmacy #[id number], 156, cm, 01/28/20 8:32:00 EDT, Height/Length Dosing, 124, kg, 01/28/20 8:32:00 EDT, Weight Dosing lurasidone, 60 mg = 1 tab(s), Oral, Daily, @supper with food, # 30 tab(s), Refills(s) 5, Pharmacy: [facility]/pharmacy #[id number], 156, cm, 01/28/20 8:32:00 EDT, Height/Length Dosing, 124, kg, 01/28/20 8:32:00 EDT, Weight Dosing metformin, 500 mg = 1 tab(s), Oral, BID, # 60 tab(s), Refills(s) 5, Pharmacy: [facility]/pharmacy #[id number], 156, cm, 01/28/20 8:32:00 EDT, Height/Length Dosing, 124, kg, 01/28/20 8:32:00 EDT, Weight Dosing General Treatment Plan Pharmacological management: Alternative medication plans were discussed with the patient/guardian. All relevant side effects and potenti (more content not included)... Normal [facility] Comment on above: Result Comment: Elec tronically Signed By: TERE TENORIO, Jocelyn\.br\Date and Time Signed: 01/28/20 09:14 EDT Vital Signs Date Time Vital Sign Value Performing Clinician Facility 06-29-2023 11:10-0500 Body height 154.9 cm [employer] [facility] 06-29-20[facility] 11:10-0500 Body mass index (BMI) [Ratio] 56.08 kg/m2 [employer] [facility] 06-29-2023 11:10-0500 Body weight 134.54 kg MIT [employer] Work Phone: [employer] 06-29-2023 11:10-0500 Diastolic blood pressure 84 mm[Hg] Lindsey [employer] [facility] 06-29-2023 11:10-0500 Heart rate 93 /min [facility] [employer] [facility] 06-29-2023 11:10-0500 SaO2% (BldA) [Mass fraction] 95 % [employer] Work Phone: [facility] 06-29-2023 11:10-0500 Systolic blood pressure 152 mm[Hg] [employer]ap[employer] [facility] 05-03-2023 13:16-0500 Body mass index (BMI) [Ratio] 54.61 kg/m2 Katerin Haynes [employer] Work Phone: [facility] 05-03-2023 13:16-0500 Body weight 131.09 kg Katerin Haynes [employer] Work Phone: [facility] 05-03-2023 13:16-0500 Diastolic blood pressure 74 mm[Hg] Katerin Haynes [employer] Work Phone: [facility] 05-03-2023 13:16-0500 Heart rate 88 /min Katerin Haynes [employer] Work Phone: [employer] 05-03-2023 13:16-0500 Respiratory rate 18 /min Katerin Haynes [employer] Work Phone: [employer] 05-03-2023 13:16-0500 SaO2% (BldA) [Mass fraction] 98 % Katerin Haynes [employer] Work Phone: [employer] 05-03-2023 13:16-0500 Systolic blood pressure 126 mm[Hg] Katerin Haynes [employer] Work Phone: [employer] 02-05-2023 09:45-0400 Body height 154.94 cm Jovita Murcia Other [employer] Other 02-05-2023 09:45-0400 Body mass index (BMI) [Ratio] 57.32 kg/m2 Jovita Murcia Other [employer] Other 02-05-2023 09:45-0400 Body temperature 98 [degF] Jovita Murcia Other [employer] Other 02-05-2023 09:45-0400 Body weight 137.62 kg Jovita Murcia Other [employer] Other 02-05-2023 09:45-0400 Respiratory rate 18 /min Jovita Murcia Other [facility] [employer] Other 02-05-2023 09:45-0400 SaO2% (BldA) [Mass fraction] 97 % Jovita Murcia Other [employer] Other 12-22-2022 09:30-0400 Diastolic blood pressure 96 mm[Hg] MD Aline Villalobos Work Phone: [facility] 12-22-2022 09:30-0400 Heart rate 60 /min MD Aline Villalobos Work Phone: [facility] 12-22-2022 09:30-0400 Respiratory rate 16 /min MD Aline Villalobos Work Phone: [facility] 12-22-2022 09:30-0400 SaO2% (BldA) [Mass fraction] 99 % MD Aline Villalobos Work Phone: [facility] 12-22-2022 09:30-0400 Systolic blood pressure 154 mm[Hg] MD Aline Villalobos Work Phone: [facility] 12-22-2022 08:06-0400 Body height 152.4 cm MD Aline Villalobos Work Phone: [facility] 12-22-2022 08:06-0400 Body weight 137.89 kg MD Aline Villalobos Work Phone: [facility] 07-22-2022 11:35-0400 Respiratory rate 18 /min Inge Leung DO Work Phone: [employer] 07-22-2022 08:00-0400 Body temperature 99 [degF] Inge Leung DO Work Phone: [employer] 07-22-2022 08:00-0400 Diastolic blood pressure 63 mm[Hg] Inge Leung DO Work Phone: [employer] 07-22-2022 08:00-0400 Heart rate 78 /min Inge Mojicaza DO Work Phone: [employer] 07-22-2022 08:00-0400 SaO2% (BldA) [Mass fraction] 99 % Inge Mojicaza DO Work Phone: [employer] 07-22-2022 08:00-0400 Systolic blood pressure 137 mm[Hg] Inge Causeyazza DO Work Phone: [employer] 07-18-2022 17:35-0400 Body height 154.94 cm Alesha Cortez Other [employer] Other 07-18-2022 17:35-0400 Body mass index (BMI) [Ratio] 62.16 kg/m2 Alesha Cortez Other [employer] Other 07-18-2022 17:35-0400 Body temperature 96 [degF] Alesha Cortez Other [employer] Other 07-18-2022 17:35-0400 Body weight 149.23 kg Alesha Cortez Other [employer] Other 07-18-2022 17:35-0400 Respiratory rate 18 /min Alesha Cortez Other [employer] Other 07-18-2022 17:35-0400 SaO2% (BldA) [Mass fraction] 97 % Alesha Cortez Other [employer] Other 07-15-2022 17:16-0400 Diastolic blood pressure 83 mm[Hg] Inge Mojicaza DO Work Phone: [employer] 07-15-2022 17:16-0400 Heart rate 97 /min Inge Leung DO Work Phone: [facility] 07-15-2022 17:16-0400 Respiratory rate 16 /min Inge Leung DO Work Phone: [facility] 07-15-2022 17:16-0400 Systolic blood pressure 142 mm[Hg] Inge Leung DO Work Phone: [facility] 07-15-2022 15:44-0400 Body temperature 98.49 [degF] Inge Leung DO Work Phone: [facility] 03-21-2022 10:30-0500 Body height 154.94 cm Naga Wells Other [employer] Other 03-08-2022 02:06-0500 Body weight 141.0696 kg LILIA RUIZ [facility] Comment on above: Performed By: #### UACSTRUPTI, DAPHNE #### [facility] Laboratory [address] [place] [address] Dr. Valeria Farris Encounters Encounter Date Encounter Type Care Provider Facility Start: 11-08-2023 End: 11-08-[address] Start: 10-29-2023 End: 10-29-2023 ambulatory NOAH NICHOLAS Not Available Start: 10-11-2023 End: 10-11-2023 ambulatory NOAH NICHOLAS Not Available Start: 10-09-2023 End: 10-09-2023 ambulatory MATEO [facility] Start: 09-11-2023 End: 09-11-2023 ambulatory NOAH NICHOLAS Not Available Start: 09-10-2023 End: 09-11-2023 Emergency department patient visit MANUEL GODINEZ [facility] Start: 08-28-2023 End: 08-28-2023 Emergency department patient visit CHAS BALDERAS [facility] Start: 08-24-2023 End: 08-24-2023 ambulatory CHAS BALDERAS Not Available Start: 08-14-2023 End: 08-14-2023 ambulatory NOAH PETERSON Not Available Start: 07-19-2023 End: 07-19-2023 ambulatory CHARMAINE HAIRSTON Not Available Start: 07-02-2023 Telephone encounter Lindsey Huerta Daryl giovannysulaiman CAR JOCKEY-STOCKLAYER Work Phone: [facility] Comment on above: Sleep Lab (PSG) Start: 06-29-2023 End: 06-29-2023 ambulatory [facility] Start: 06-29-2023 End: 06-29-2023 Office outpatient new 45 minutes Lindsey Salome CAR JOCKEY-STOCKLAYER Work Phone: [facility] Comment on above: MOLINA (obstructive sle ep apnea) (Primary Dx); Morning headache; Memory loss; Fatigue, unspecified type; Snoring Start: 06-24-2023 Refill Katerin grewal CAR JOCKEY-STOCKLAYER Work Phone: [facility] Start: 06-14-2023 End: 06-15-2023 ambulatory RAZIA MULLER [facility] Start: 06-06-2023 Refill Katerin grewal [employer]KEY[employer]OCK[employer] Work Phone: [facility] Start: 06-05-2023 Orders Only Sadaf Louis [facility] Comment on above: Low back pain, unspe cified back pain laterality, unspecified chronicity, unspecified whether sciatica present (Primary Dx) Start: 05-29-2023 Telephone encounter Orders Sup port User Transcribe [facility] Comment on above: Sleep Lab Start: 05-22-2023 End: 05-22-2023 ambulatory CHAS BALDERAS Not Available Start: 05-16-2023 End: 05-17-2023 Emergency department patient visit LINA HUGHES [facility] Start: 05-15-2023 End: 05-15-2023 ambulatory NOAH PETERSON Not Available Start: 05-03-2023 End: 05-03-2023 ambulatory [facility] Start: 05-03-2023 End: 05-03-2023 Office outpatient visit 15 minutes [facility] CAR JOCKEY-STOCKLAYER Work Phone: [facility] Comment on above: Acute non-recurrent maxillary sinusitis (Primary Dx) Start: 04-19-2023 End: 04-19-2023 ambulatory CHARMAINE HAIRSTON Not Available Start: 02-05-2023 End: 02-05-2023 ambulatory Jovita Murcia Other [employer] Other Start: 02-05-2023 Office outpatient vi sit 15 minutes Jovita Murcia [facility] Start: 12-22-2022 End: 12-22-2022 ambulatory Aline Villalobos Facility:[facility] Start: 12-22-2022 End: 12-22-2022 ambulatory MD Aline Villalobos Work Phone: [facility] Work Phone: Start: 12-22-2022 End: 12-22-2022 Patient encounter procedure MD Aline Villalobos Work Phone: [facility] [place] Work Phone: Start: 12-20-2022 End: 12-20-2022 ambulatory Aline Villalobos Facility:[facility] Start: 12-20-2022 End: 12-20-2022 ambulatory MD Aline Villalobos Work Phone: [facility] Work Phone: Start: 12-20-2022 End: 12-20-2022 Patient encounter procedure MD Aline Villalobos Work Phone: [facility] [place] Work Phone: Start: 09-04-2022 ambulatory RAYSA Nuñez y:H1 Start: 07-20-2022 End: 07-22-2022 Evaluation and management of inpatient Inge Causeysaekaya DO Work Phone: [facility] Post Comment on above: RLTCS w/ IUD 07/20/22 F Apg 8/9 Wt 6#12 (Primary Dx) Start: 07-20-2022 End: 07-20-[address] NOAH PETERSON Facility:[facility] Start: 07-19-2022 End: 07-19-[address] NOAH PETERSON Facility:[facility] Start: 07-18-2022 End: 07-18-2022 ambulatory Alesha Cortez Other [employer] Other Start: 07-18-2022 Office outpatient vi sit 25 minutes Alesha Cortez [facility] Start: 07-17-2022 End: 07-17-[address] NOAH PETERSON Facility:[facility]1 Start: 07-17-2022 Evaluation and management of inpatient DR NOAH PETERSON Facility:[facility] Start: 07-15-2022 End: 07-15-2022 Subsequent hospital visit by physician Inge Leung DO Work Phone: [facility] Delivery Start: 07-13-2022 End: [...] LADONNA CARSON . Facility:[facility]1 Start: 06-29-2022 End: 06-29-2022 Subsequent hospital visit [...] 05-23-[address] NOAH PETERSON Facility:[facility]1 Start: 05-04-2022 End: 05-04-[address] LADONNA CARSON . Facility:[facility] Start: 04-11-2022 End: 04-12-[address] NOAH PETERSON Facility:H1 Start: 04-03-2022 End: 04-04-[address] NOAH PETERSON Facility:[facility]1 Start: 03-28-2022 End: 03-29-[address] NOAH PETERSON Facility:[facility]1 Start: 03-21-2022 End: 03-21-2022 ambulatory [place] Other [employer] Other Start: 03-21-2022 Office outpatient ne w 30 minutes Naga Wells [facility] Start: 03-19-2022 End: 03-19-2022 ambulatory LILIA RUIZ Facility:H1 Start: 03-15-2022 End: 03-16-[address] NOAH PETERSON Facility:[facility]1 Start: 03-03-2022 End: 03-04-[address] NOAH PETERSON Facility:H1 Start: 02-27-2022 Blood pressure taking Jovita groves Other [employer] Other Start: 01-09-2022 End: 01-10-[address] NOAH PETERSON Facility:H1 Start: 12-30-2021 End: 12-31-[address] NOAH PETERSON Facility:H1 Start: 12-14-2021 End: 12-15-[address] NOAH PETERSON Facility:H1 Start: 12-07-[address] NOAH PETERSON Facility :H1 Start: 11-28-2021 End: 12-21-[address] NOAH PETERSON Facility:H1 Start: 10-05-2021 End: 10-06-[address] NOAH PETERSON Facility:H1 Start: 09-26-2021 ambulatory SHAIKH Vandana Nuñez y:H1 Start: 09-12-2021 End: 09-13-[address] GERARD GONZALEZ Facility:H1 Start: 09-12-2021 End: 09-13-[address] NOAH PETERSON Facility:H1 Start: 10-28-2020 History of abnormal cervical Papanicolaou smear Jovita Murcia Other [employer] Other Start: 01-30-2018 End: 01-31-2018 Patient encounter DEFAULT PHYSICIAN Facility:[facility] Procedures Date Procedure Procedure Detail Performing Clinician Start: 12-22-2022 Investigation of transfusion reaction MD Aline Villalobos Work Phone: Start: 07-22-2022 Glucose blood reagent strip Hitesh A Jewel DO Work Phone: Start: 07-21-2022 Glucose blood reagent strip Hitesh A Bellwood DO Work Phone: Start: 07-21-2022 Glucose blood reagent strip Hitesh A Bellwood DO Work Phone: Start: 07-21-2022 Glucose blood reagent strip Hitesh A Bellwood DO Work Phone: Start: 07-21-2022 Blood count complete auto&auto difrntl wbc Nash E Eleazar DO Work Phone: Start: 07-20-2022 Glucose blood reagent strip Hitesh A Bellwood DO Work Phone: Start: 07-20-2022 Cul prsmptv pthgnc o rganism scrn w/colony estimj Shelby N Ramirez DO Work Phone: Start: 07-20-2022 Culture bacterial quanttative colony count urine Horacio Almazan MD Work Phone: Start: 07-20-2022 End: 07-20-2022 delivery only Hitesh A Bellwood DO Work Phone: Start: 07-20-2022 Antibody screen Remediosdarío Mojicaza DO Work Phone: Start: 07-20-2022 End: 07-20-2022 Blood typing serologic abo Apoorva Crabtree DO Work Phone: Start: 07-20-2022 End: 07-20-2022 Comprehensive metabolic panel Apoorva Crabtree DO Work Phone: Start: 07-20-2022 T. PALLIDUM AB Apoorva Ma rgob DO Work Phone: Start: 07-20-2022 H/O: section History of CS x2 Inge Xochitl DO Work Phone: Start: 07-15-2022 Ct thorax w/contrast material Diamante Estrada MD Work Phone: Start: 07-15-2022 Antibody screen Jamil Leung DO Work Phone: [...] Start: 06-29-2022 Assay of free thyroxine Mateo C Perni MD Work Phone: Start: 05-29-2022 Microscopic observat ion [Identifier] in Cervix by Cyto stain Katerin Haynes APRN-STOCKLAYER Work Phone: Start: 12-28-2021 Diabetes mellitus screening Jovita Divina Other Start: 11-30-2021 Adult depression scr eening assessment Katerin Haynes APRN-STOCKLAYER Work Phone: End: 04-13-2021 screening Jovita Divina Other End: 07-27-2021 screening Jovita Murcia Other Counseling Jovita Murcia Other Depression screening Jovita Murcia Other visit Jovita watkins Other Plan of Treatment Date Care Activity Detail Author Start: 12-21-2029 DTaP,Tdap and Td Vaccines (7 - Td or Tdap) DTaP,Tdap and Td Vaccines (7 - Td or Tdap) [facility] Start: 12-21-2029 DTaP/Tdap/Td vaccine (7 - Td or Tdap) DTaP/Tdap/Td vaccine (7 - Td or Tdap) [facility] Start: 05-29-2025 Screening for malign ant neoplasm of cervix Pap Smear [facility] Start: 06-28-2024 Adult BMI Screening Adult BMI Screen ing [facility] Start: 06-28-2024 Tobacco Screening Tobacco Screening [facility] Start: 06-13-2024 Adult BMI Screening Adult BMI Screen ing [facility] Start: 05-16-2024 Adult BMI Screening Adult BMI Screen ing [facility] Start: 05-16-2024 Tobacco Screening Tobacco Screening [facility] Start: 05-03-2024 Adult BMI Follow Up Plan Adult BMI Follow Up Plan [facility] Start: 05-03-2024 Adult BMI Screening Adult BMI Screen ing [facility] Start: 05-03-2024 Tobacco Screening Tobacco Screening [facility] Start: 03-12-2024 Adult BMI Follow Up Plan Adult BMI Follow Up Plan [facility] Start: 01-09-2024 End: 01-09-2024 Patient encounter procedure 01/09/2024 9:00 AM EDT Office Visit [facility] [place] [address] Lindsey Mcmahon, CAR JOCKEY-STOCKLAYER [address] [address] [facility] Start: 10-23-2023 End: 10-23-2023 Clinical Support 10/23/2023 8:00 PM EDT Clinical Support [facility] [address] [place] [id number] [facility] Start: 07-11-2023 End: 07-11-2023 Patient encounter procedure 07/11/2023 10:00 AM EDT Office Visit [facility] [place] [address] Lindsey Mcmahon, CAR JOCKEY-STOCKLAYER [address] [address] [facility] Start: 06-25-2023 End: 06-25-2023 Patient encounter procedure 06/25/2023 10:30 AM EST Office Visit [facility] [address] [place] [address] Terese Valladares, CAR JOCKEY-STOCKLAYER [address] [address] [facility] Start: 06-14-2023 End: 06-14-2023 Patient encounter procedure 06/14/2023 8:15 AM EST Appointment [facility] [address] [place] [phone] [facility] Start: 06-05-2023 End: 06-05-2024 XR Lumbar spine Views AP W right bending and W left bending X-ray spine lumbar flexion and extension only 2 to 3 views Imaging Routine Low back pain, unspecified back pain laterality, unspecified chronicity, unspecified whether sciatica present Expected: 06/05/2023, Expires: 06/05/2024 [facility] Work Phone: Comment on above: Expected: 06/05/2023 , Expires: 06/05/2024 Start: 06-05-2023 End: 06-05-2023 Patient encounter procedure 06/05/2023 1:30 PM EST Office Visit [facility] [address] [place] [phone] Katerin Haynes, CAR JOCKEY-STOCKLAYER [address] [place] [address] [facility] Start: 05-28-2023 End: 05-28-2023 Patient encounter procedure 05/28/2023 9:30 AM EST Office Visit [facility] [address] [place] [phone] Terese Valladares, CAR JOCKEY-STOCKLAYER [address] [address] [facility] Start: 05-18-2023 Hemoglobin A1c measurement A1C test (Diabetic or Prediabetic) [facility] Start: 12-22-2022 COVID-19 Vaccine ( season) COVID-19 Vaccine ( season) [facility] Start: 12-22-2022 Influenza vaccination Influenza Vacc ine [facility] Start: 12-22-2022 Cerebrospinal fluid culture [facility] Start: 12-22-2022 End: 12-22-2022 [facility] Start: 11-30-2022 Depression Screening Depression Scre ening [facility] Start: 11-21-2022 Influenza vaccination Flu vacc ine (Season Ended) [facility] Start: 07-20-2022 End: 07-20-2022 Patient encounter procedure 07/20/2022 Routine Perinatology [facility] Start: 07-13-2022 End: 07-13-2022 Patient encounter procedure 07/13/2022 Routine Perinatology [facility] Start: 07-06-2022 End: 07-06-2022 Patient encounter procedure 07/06/2022 Routine Perinatology [facility] Start: 02-05-2022 Screening for malign ant neoplasm of cervix [facility] Start: 11-21-2021 Influenza vaccination Flu vaccine (# 1) [facility] Start: 01-21-2021 COVID-19 Vaccine (2 - Booster for Hipolito series) COVID-19 Vaccine (2 - Booster for Hipolito series) [facility] Start: 02-05-2013 Screening for malign ant neoplasm of cervix Pap smear [facility] Start: 02-05-2010 Hepatitis C screening Hepatitis C sc reen [facility] Start: 02-05-2007 HIV screening HIV screen [facility] Start: 2004 Depression Screen Depression Screen [facility] Start: 02-05-2002 Lipid panel Lipids [facility] Start: 02-05-1998 Pneumococcal 0-64 ye ars Vaccine (1 - PCV) Pneumococcal 0-64 years Vaccine (1 - PCV) [facility] Start: 02-05-1993 Varicella vaccine (1 of 2 - 2-dose childhood series) Varicella vaccine (1 of 2 - 2-dose childhood series) [facility] Bacteria identified in Unspecified specimen by Aerobe culture [facility] Bacteria identified in Unspecified specimen by Anaerobe culture [facility] End: 07-15-2022 COVID-19, Rapid COVID-19, Rapid Microbiology STAT One Time for 1 Occurrences starting 07/15/2022 until 07/15/2022 [facility] [employer] Work Phone: Comment on above: One Time for 1 Occur rences starting 07/15/2022 until 07/15/2022 CT CHEST PULMONARY EMBOLISM W CONTRAST CT CHEST PULMONARY EMBOLISM W CONTRAST Imaging STAT 07/15/2022 5:48 PM EDT [employer] Phone: Culture, Strep B Scr een, Vaginal/Rectal Culture, Strep B Screen, Vaginal/Rectal Microbiology [employer] Label Print 07/20/2022 6:56 PM EDT [employer] Phone: EKG 12 Lead EKG 12 Lead ECG Routine 07/15/2022 4:23 AM EDT [employer] Phone: Glucose [Mass/volume ] in Serum or Plasma POCT glucose Point of Care Testing Routine 4X Daily (AC & HS) until discontinued starting 07/20/2022 [employer] Phone: Comment on above: 4X Daily (AC & HS) u ntil discontinued starting 07/20/2022 End: 07-15-2022 Hepatitis C Antibody [employer] Phone: Comment on above: One Time for 1 Occur rences starting 07/15/2022 until 07/15/2022 Meningitis+Encephali tis pathogens DNA and RNA panel - Cerebral spinal fluid by SARANYA with non-probe detection [facility] Microscopic observat ion [Identifier] in Unspecified specimen by Gram stain [facility] Nonrebreather mask oxygen Nonrebreather mask oxygen Respiratory Care Routine As directed - RT (PRN) until discontinued starting 07/15/2022 [employer] Phone: Comment on above: As directed - RT (CT N) until discontinued starting 07/15/2022 Oxygen therapy [[facility]ini [facility] Data Set] Initiate Oxygen Therapy Protocol Respiratory Care Routine Daily until discontinued starting 07/20/2022 [facility] [employer] Phone: Comment on above: Daily until disconti nued starting 07/20/2022 Patient Education [facility] Lumb ar Puncture Discharge Instructions [facility] Work Phone: PROFILE I PROF ILE I Lab [employer] Label Print 07/15/2022 4:12 PM EDT [employer] Work Phone: End: 06-28-2024 [facility] Routine MOLINA (obstructive sleep apnea) 1 Occurrences starting 06/29/2023 until 06/28/2024 [facility] Work Phone: Comment on above: 1 Occurrences starti ng 06/29/2023 until 06/28/2024 End: 07-15-2022 RAPID INFLUENZA A/B ANTIGENS RAPID INFLUENZA A/B ANTIGENS Microbiology STAT One Time for 1 Occurrences starting 07/15/2022 until 07/15/2022 [employer] Work Phone: Comment on above: One Time for 1 Occur rences starting 07/15/2022 until 07/15/2022 End: 07-20-2022 Specimen hold [employer] Work Phone: Comment on above: Once for 1 Occurrenc es starting 07/20/2022 until 07/20/2022 End: 07-20-2022 Specimen to Pathology Specimen to Pathology Lab Routine One Time for 1 Occurrences starting 07/20/2022 until 07/20/2022 [employer] Work Phone: Comment on above: One Time for 1 Occur rences starting 07/20/2022 until 07/20/2022 Spirometry panel Incentive ilnda metry Respiratory Care Routine Every 2hr while awake until discontinued starting 07/20/2022 [employer] Phone: Comment on above: Every 2hr while awak e until discontinued starting 07/20/2022 End: 07-15-2022 Troponin I.cardiac [Mass/volume] in Serum or Plasma Troponin Lab STAT One Time for 1 Occurrences starting 07/15/2022 until 07/15/2022 [employer] Phone: Comment on above: One Time for 1 Occur rences starting 07/15/2022 until 07/15/2022 Immunizations Immunization Date Immunization Notes Care Provider [facility] 04-21-2014 influenza virus vaccine, unspecified formulation Katerin Haynes APRN-STOCKLAYER Work Phone: [facility] NEGATED: Highlighted row has not occurred!07-22-2022 tetanus toxoid, reduced diphtheria toxoid, and acellular pertussis vaccine, adsorbed Inge Leung DO Work Phone: [facility] Payers Date Payer Category Payer Unknown 2022 Unknown [id number] 2022 Medicaid [id number] 2022 Medicaid [employer] MED[employer] [facility] MEDICAID [id number] 2022-Present [address] [place] [address] [id number]. 7.3.870183.315 1992 Unknown [id number] 2.16.840.1.458675.3.579.2. 647 1992 Unknown [id number] 2.16.840.1.368111.3.579.2. 593 1992 Unknown [id number] 2.16.840.1.086362.3.579.2. 593 1992 Unknown [id number] 2.16.840.1.841176.3.579.2. 593 1992 Unknown [id number] 2.16.840.1.053805.3.579.2. 593 1992 Unknown [id number] 2.16.840.1.835552.3.579.2. 593 1992 Unknown [id number] 2.16.840.1.235615.3.579.2. 593 1992 Unknown [id number] 2.16.840.1.644902.3.579.2. 593 1992 Unknown [id number] 2.16.840.1.569084.3.579.2. 593 1992 Unknown [id number] 2.16.840.1.741310.3.579.2. 593 1992 Unknown [id number] 2.16.840.1.515764.3.579.2. 593 1992 Unknown [id number] 2.16.840.1.515348.3.579.2. 593 1992 Unknown [id number] 2.16.840.1.896481.3.579.2. 593 1992 Unknown [id number] 2.16.840.1.450635.3.579.2. 593 1992 Unknown [id number] 2.16.840.1.561337.3.579.2. 593 1992 Unknown [id number] 2.16.840.1.494214.3.579.2. 593 1992 Unknown [id number] 2.16.840.1.417996.3.579.2. 593 1992 Unknown [id number] 2.16.840.1.361836.3.579.2. 593 1992 Unknown [id number] 2.16.840.1.168741.3.579.2. 593 1992 Unknown [id number] 2.16.840.1.924504.3.579.2. 593 1992 Unknown [id number] 2.16.840.1.787515.3.579.2. 593 1992 Unknown [id number] 2.16.840.1.855059.3.579.2. 593 1992 Unknown [id number] 2.16.840.1.143642.3.579.2. 593 1992 Unknown [id number] 2.16.840.1.985561.3.579.2. 593 1992 Unknown [id number] 2.16.840.1.147442.3.579.2. 593 1992 Unknown [id number] 2.16.840.1.835887.3.579.2. 593 1992 Unknown [id number] 2.16.840.1.792065.3.579.2. 593 1992 Unknown [id number] 2.16.840.1.380872.3.579.2. 593 1992 Unknown [id number] 2.16.840.1.919919.3.579.2. 593 1992 Unknown [id number] 2.16.840.1.188107.3.579.2. 593 1992 Unknown [id number] 2.16.840.1.447511.3.579.2. 593 1992 Unknown [id number] 2.16.840.1.293260.3.579.2. 593 1992 Unknown [id number] 2.16.840.1.786434.3.579.2. 593 1992 Unknown [id number] 2.16.840.1.965677.3.579.2. 593 1992 Unknown [id number] 2.16.840.1.731200.3.579.2. 593 1992 Unknown [id number] 2.16.840.1.956423.3.579.2. 593 1992 Unknown [id number] 2.16.840.1.609010.3.579.2. 593 1992 Unknown [id number] 2.16.840.1.942555.3.579.2. 593 1992 Unknown [id number] 2.16.840.1.988198.3.579.2. 593 1992 Unknown [id number] 2.16.840.1.837767.3.579.2. 593 1992 Unknown [id number] 2.16.840.1.213298.3.579.2. 593 1992 Unknown [id number] 2.16.840.1.229898.3.579.2. 1286 1992 Unknown [id number] 2.16.840.1.959008.3.579.2. 1286 1992 Unknown [id number] 2.16.840.1.932825.3.579.2. 1286 1992 Unknown [id number] 2.16.840.1.328045.3.579.2. 128 1992 Unknown [id number] 2.16.840.1.954441.3.579.2. 128 1992 Unknown [id number] 2.16.840.1.790799.3.579.2. 1285 1992 Unknown [id number] 2.16.840.1.612268.3.579.2. 128 1992 Unknown [id number] 2.16.840.1.993930.3.579.2. 1286 1992 Unknown [id number] 2.16.840.1.466509.3.579.2. 1258 1992 Unknown [id number] 2.16.840.1.564982.3.579.2. 1258 1992 Unknown [id number] 2.16.840.1.943148.3.579.2. 1258 1992 Unknown [id number] 2.16.840.1.589726.3.579.2. 1259 1992 Unknown [id number] 2.16.840.1.357283.3.579.2. 1259 1992 Unknown [id number] 2.16.840.1.626361.3.579.2. 1258 1992 Unknown [id number] 2.16.840.1.700654.3.579.2. 1259 1992 Unknown [id number] 2.16.840.1.128494.3.579.2. 1259 1992 Unknown [id number] 2.16.840.1.983258.3.579.2. 1259 1992 Unknown [id number] 2.16.840.1.239529.3.579.2. 175 1992 Unknown [id number] 2.16.840.1.531364.3.579.2. 175 1959 Medicaid [id number] 1.2.840.930970.1.13.239.2. 7.3.950121.315 1959 Private Health Insurance [id number] 1.2.840.710563.1.13.239.2. 7.3.552359.315 1959 Self-pay 1959 Unknown [id number] 1959 Worker's Compensation [id number] 2.16.840.1.763646.19 Medicaid [place] [employer] [id number] [facility] [id number] Private Health Insurance [id number] 2.16.840.1.800807.19 Private Health Insurance [place] [facility] [id number] Unknown [id number] Unknown [id number] Unknown [id number] Unknown [id number] Social History Date Type Detail Facility Unknown if ever smoked [employer] Other Start: 06-03-2020 End: 05-03-2023 Sex Assigned At [employer] Other Start: 06-22-2022 End: 06-29-2023 Tobacco smoking status [facility] Ex-smoker [facility] Start: 05-25-2020 End: 11-20-2017 History of tobacco use Current smoker [facility] Phone: End: 11-20-2017 History of tobacco use Cigarette Smoker [facility] Phone: Start: 06-22-2022 End: 06-29-2023 Tobacco use and exposure Smokeless tobacco non-user [facility] Phone: Start: 06-29-2022 End: 06-29-2023 Alcohol intake Ex-drinker (finding) [facility] Phone: Start: 06-22-2022 Tobacco Comment Quit in 201806/22/2022 [facility] Phone: Start: 11-20-2021 [facility] Phone: Start: 1990 Sex Assigned At Female [facility] Start: 07-10-2022 End: 07-20-2022 Exposure to SARS-CoV-2 (event) Not sure [facility] Phone: Start: 06-03-2020 End: 11-16-2022 Cigarettes smoked current (pack per day) - [facility] Adolescent depressio n screening assessment 2 [facility] Start: 11-30-2021 Education 17 [facility] Start: 11-16-2022 Tobacco Comment quit in July [facility] Start: 05-16-2022 Gender identity Identifies as female gender (finding) [facility] Start: 05-25-2022 Sexual orientation Heterosexual (finding) [facility] Medical Equipment Procedure Code Equipment Code Equipment Origin al Text Equipment Identifier Dates BD ULTRA-FINE PE N NEEDLES 29G X 12.7MM [facility] [id number] Start: 04-03-2022 ONETOUCH ULTRA strip [id number] Star t: 06-11-2022 DROPLET PEN NEED LES 29G X 12MM [facility] [id number] Start: 06-30-2022 Clinical Notes 01-28-2020 to 07-02-2023 Telephone Encounter - Christine Valladares - 07/02/2023 9:14 AM EDTTelephone Encounter - Christine Valladares - 07/02/2023 9:14 AM EDVANESA Head - 06/29/2023 11:00 AM ESTPatient Instructions Note Date & Type Note Facility 07-02-2023 Miscellaneous Notes Formattin g of this note is different from the original. 3/8 order received Scheduled PSG at [facility] on 10/23/23 Mychart confirmation [facility] [employer] PSG order & 3/6 [facility] notes in Epic With TCO2 monitoring. Please obtain baseline in supine position. documented in this encounter [facility] 07-02-2023 Telephone encount er Note 3 order received Scheduled PSG at [facility] on 10/23/23 Mychart confirmation [facility] [employer] PSG order & / [facility] notes in Epic With TCO2 monitoring. Please obtain baseline in supine position. [facility] [facility] 06-29-2023 History of Presen t illness Narrative Chief Complaint: Yani Stevens is a 33 y.o. female present for initial visit regarding suspected MOLINA. HPI Reason for Visit: HISTORY OF PRESENT ILLNESS: Have you previously had a sleep study? No Do you have a partner (girlfriend/boyfriend, spouse, etc): yes If yes, do you sleep in the same room? At times Do you or your bed partner currently notice any of the following symptoms? Snoring Almost always Breathing pauses when you sleep never Wake up choking or gasping Almost always Wake up with shortness of breath none Wake up with dry mouth/sore throat Almost always Nasal/sinus congestion Almost always Morning headaches some Waking up to urinate 2 or more times a night often Heartburn interfering with sleep never Grinding teeth while sleeping Almost always Nightmares some Sleep walking never Sleep talking never Acting out dreams never Restlessness or discomfort in legs often Kicking/jerking of legs while sleeping always Hallucinations when falling asleep/waking up never Momentary inability to move body (paralysis) as falling asleep or waking up never How would you rate the intensity of her snoring on a scale of 0-4? 2 moderate Have you had any surgery in regards to snoring or sleep apnea? no Have you had any of the following treatments for sleep apnea? Oral appliance no Positional therapy device no Airway surgery: no Weight loss surgery: no SLEEP SCHEDULE: What time do you get into bed? 9-11 PM Time it takes to fall asleep (minutes): 10 What time do you wake up? 6-8 AM Number of mppmbq-hi-ony-night awakenings per night? 3-4 Cause of awakenings (if applicable): bathroom/ How many naps do you take a day and for how long? 2 1-2 hours Do you feel refreshed after your naps? none Family history of sleep apnea: father You drink any alcohol? none Any illicit drug use? none Patient denies any dyspnea, fever, chills, chest pain or hemoptysis. EPWORTH SLEEPINESS SCALE Sitting and Reading: (!) High Chance Watching TV: (!) High Chance Sitting inactive in a public place (theater, meeting): Never As a passenger in a car for an hour without a break: Never Lying down in the afternoon to rest: (!) High Chance Sitting and talking to someone: (!) Moderate Chance Sitting quietly after lunch (without alcohol): Slight Chance In a car, while stopped for a few minutes in traffic: Never Total: 12 OARRS REVIEWED Reviewed: no [facility] PERTINENT HISTORY Her pertinent medical history includes Past Medical History: Diagnosis Date Anxiety 2012 Asthma 2016 Back pain Bipolar 1 disorder ([facility]) Cholecystitis gallbladder removed-2009 Chronic headache 2011 Depression 2012 Disease of thyroid gland 2018 Eczema 2020 GERD (gastroesophageal reflux disease) Gestational diabetes Heart murmur 2012 Hypertension Knee pain Migraine 2011 Obesity Visual impairment CURRENT MEDICATIONS Reviewed with patient. Current Outpatient Medications: albuterol (PROVENTIL HFA;VENTOLIN HFA) 90 mcg/actuation inhaler, Inhale 2 puffs every 6 (six) hours as needed for wheezing., Disp: 18 g, Rfl: 11 cetirizine (ZyrTEC) 10 mg tablet, TAKE 1 TABLET (10 MG TOTAL) BY MOUTH IN THE MORNING, Disp: 30 tablet, Rfl: 2 fluticasone propionate (FLONASE) 50 mcg/actuation nasal spray, SPRAY 1 SPRAY INTO EACH NOSTRIL IN THE MORNING, Disp: 16 mL, Rfl: 2 labetaloL (NORMODYNE) 100 mg tablet, TAKE 2 TABLETS BY MOUTH 3 TIMES A DAY FOR 90 DAYS., Disp: 540 tablet, Rfl: 0 levothyroxine (SYNTHROID, LEVOTHROID) 50 MCG tablet, Take 1 tablet (50 mcg total) by mouth in the morning., Disp: , Rfl: 5 metFORMIN XR (GLUCOPHAGE XR) 500 mg 24 hr tablet, Take 2 tablets (1,000 mg total) by mouth daily with dinner., Disp: , Rfl: no115/iron/folic acid ( 19 ORAL), Take by mouth., Disp: , Rfl: acetaZOLAMIDE (DIAMOX) 250 mg tablet, Take 1 tablet (250 mg total) by mouth in the morning and 1 tablet (250 mg total) before bedtime. (Patient not taking: Reported on 06/29/2023), Disp: , Rfl: atogepant (QULIPTA) 30 mg tablet, Take 30 mg by mouth in the morning. (Patient not taking: Reported on 06/29/2023), Disp: , Rfl: cyclobenzaprine (FLEXERIL) 10 mg tablet, Take 1 tablet (10 mg total) by mouth 2 (two) times a day as needed for muscle spasms. (Patient not taking: Reported on 06/29/2023), Disp: 10 tablet, Rfl: 0 ketorolac (TORADOL) 10 mg tablet, Take 1 tablet (10 mg total) by mouth every 6 (six) hours as needed for pain. (Patient not taking: Reported on 06/29/2023), Disp: 20 tablet, Rfl: 0 magnesium (MAGTAB) 84 mg tablet extended release CR tablet, Take 1 tablet (84 mg total) by mouth in the morning. (Patient not taking: Reported on 06/29/2023), Disp: , Rfl: NURTEC ODT 75 mg tablet,disintegrating, TAKE 1 TABLET BY MOUTH NEEDED FOR ONSET OF MIGRAINE, ONLY 1 IN 24 HOURS (Patient not taking: Reported on 06/29/2023), Disp: , Rfl: valACYclovir (VALTREX) 500 mg tablet, Take 1 tablet (500 mg total) by mouth in the morning. (Patient not taking: Reported on 06/29/2023), Disp: , Rfl: Vitals: 06/29/23 1110 BP: 152/84 Pulse: 93 SpO2: 95% Weight: 134.5 kg (296 lb 9.6 oz) Height: 154.9 cm (5' 0.98 ) ALLERGIES Reviewed with patient. Amoxicillin, Penicillins, Codeine, Doxycycline, and Morphine FAMILY HISTORY Family History Problem Relation Age of Onset Suicide Attempts Mother Diabetes Mother Hypertension Mother Depression Mother Arthritis Mother REENE disease Mother Miscarriages / Stillbirths Mother Suicide Attempts Father Bipolar disorder Father Diabetes Father Hypertension Father Depression Father Suicide Attempts Brother Asthma Brother Cancer Maternal Aunt breast Suicide Attempts Paternal Uncle Schizophrenia Paternal Uncle Diabetes Maternal Grandfather Hypertension Maternal Grandfather Depression Maternal Grandfather Arthritis Maternal Grandfather Lung cancer Maternal Grandfather Vision loss Maternal Grandfather Diabetes Maternal Grandmother Cancer Maternal Grandmother Hypertension Maternal Grandmother Depression Maternal Grandmother Arthritis Maternal Grandmother Ovarian cancer Maternal Grandmother Diabetes Paternal Grandfather Hypertension Paternal Grandfather Depression Paternal Grandfather Arthritis Paternal Grandfather Diabetes Paternal Grandmother Cancer Paternal Grandmother Hypertension Paternal Grandmother Depression Paternal Grandmother Arthritis Paternal Grandmother Kidney disease Paternal Grandmother Lung cancer Paternal Grandmother Hypertension Daughter Diabetes Daughter Mental illness Daughter Diabetes Maternal Aunt Hypertension Maternal Aunt Miscarriages / Stillbirths Maternal Aunt Learning disabilities Brother SOCIAL HISTORY Social History Socioeconomic History Marital status: Spouse name: Not on file Number of children: 3 Years of education: Not on file Highest education level: Bachelor's degree (e.g., BA, AB, BS) Occupational History Not on file Tobacco Use Smoking status: Former Packs/day: 1.00 Years: 15.00 Additional pack years: 0.00 Total pack years: 15.00 Types: Cigarettes Quit date: 11/20/2017 Years since quittin.6 Smokeless tobacco: Never Tobacco comments: quit in July Substance and Sexual Activity Alcohol use: Not Currently Drug use: Not Currently Types: Marijuana Sexual activity: Yes Partners: Male control/protection: I.U.D., None Other Topics Concern Not on file Social History Narrative Not on file Social Determinants of Health Financial Resource Strain: Not on file Food Insecurity: No Food Insecurity (05/16/2023) Hunger Screening Food Insecurity - Worry: Never True Food Insecurity - Inability: Never True Transportation Needs: Not on file Physical Activity: Not on file Stress: Not on file Social Connections: Not on file Interpersonal Safety: Not on file Housing Instability: Not on file TRAVEL HISTORY Denies recent travel. ROS All 11 systems have been reviewed: Review of Systems Constitutional: Positive for fatigue. Negative for chills and fever. Respiratory: Negative for cough, shortness of breath and wheezing. Cardiovascular: Negative for chest pain/discomfort. All other systems are reviewed and are negative except as noted. PHYSICAL EXAM Vital signs BP 152/84 Pulse 93 Ht 154.9 cm (5' 0.98 ) Wt 134.5 kg (296 lb 9.6 oz) LMP 10/17/2022 SpO2 95% BMI 56.08 kg/m Physical Exam Vitals and nursing note reviewed. Constitutional: Appearance: Normal appearance. She is obese. Cardiovascular: Heart sounds: Normal heart sounds. Pulmonary: Breath sounds: Normal breath sounds. Musculoskeletal: Cervical back: Neck supple. Skin: General: Skin is warm and dry. Neurological: Mental Status: She is alert and oriented to person, place, and time. Psychiatric: Mood and Affect: Mood normal. Behavior: Behavior normal. Assessment: Neurological alert and oriented PFT not obtained PERTINENT LAB RESULTS Lab Results Component Value Date CO2 18 (L) 05/16/2023 Lab Results Component Value Date TSH 1.52 11/22/2022 IMPRESSION Suspected obstructive sleep apnea syndrome A.M. Fatigue Excessive daytime sleepiness Obesity Body mass index is 56.08 kg/m . History of asthma with management per PCP TObacco use history [place] History of depression Intrauterine 7 weeks PLAN Discussed diagnosis, its evaluation, treatment and usual course. All questions answered. Educational material distributed. Consideration of CO2 monitoring (if BMI > 35 and serum CO2 > 27: BMI Readings from Last 1 Encounters: 06/29/23 56.08 kg/m Lab Results Component Value Date CO2 18 (L) 05/16/2023 ] No orders of the defined types were placed in this encounter. No orders of the defined types were placed in this encounter. A PSG is ordered. With TCO2 monitoring. Diet and exercise were discussed in detail Any age-appropriate routine screenings to be completed per PCP Follow up in 6 Months time. If her condition should change prior to this she is encouraged to give our office a call. EDUCATION: Pathophysiology of MOLINA was explained. Health risks associated with untreated MOLINA were discussed (cardiopulmonary, cerebrovascular, and anesthesia/sedative-related). Risks associated with excessive daytime sleepiness, particularly while driving/operating machinery were discussed. The patient was instructed to avoid such activities if feeling sleepy, and to stop the activity if sleepiness occurs (drum puller at the next safe opportunity if driving). MOLINA treatment options were discussed. CPAP is the most predictably effective treatment. If indicated and prescribed, CPAP must be used every night, all night for full benefits. It may take several weeks until fully accustomed to using the treatment, and before benefits (improved sleep quality and daytime alertness) are noticeable. Potential problems with CPAP were reviewed. Interim measures to reduce obstructive sleep apnea severity were recommended (avoidance of the supine position and elevation of the upper body and during sleep). CC: MD Lindsey CAMEJO [facility] Office: [phone] 11:18 AM on 06/29/2023 This note is dictated with the use of M*Modal.Please note that this dictation was completed with computer voice recognition software. Quite often unanticipated grammatical, syntax, homophones, and other interpretive errors are inadvertently transcribed by the computer software. Please disregard these errors. Please excuse any errors that have escaped final proofreading. VANESA Mendez 06/29/23 1125 documented in this encounter [facility] 06-29-2023 Instructions VANESA Mendez - 06/29/2023 11:00 AM EST If you re looking for general health and wellness resources, please visit [email or web address]. documented in this encounter [facility] 06-29-2023 Evaluation note Diagnosis MOLINA (obstructive sleep apnea)- Primary Obstructive sleep apnea (adult) (pediatric) Morning headache Memory loss Fatigue, unspecified type Snoring Other dyspnea and respiratory abnormality documented in this encounter [facility]2024 Miscellaneous Notes* Telephone Encounter - Ernestina Simpson - 05/29/2023 10:23 AM EST Pt called to schedule a sleep study or appointment with collin Dawn advised we have nothing as of now and either order is in her chart to schedule with gave her the number to sleep medicine in [place] [facility] Telephone encounter Note* Telephone Encounter - Ernestina Enrrique Simpson - 05/29/2023 10:23 AM EST Pt called to schedule a sleep study or appointment with collin Dawn advised we have nothing as of now and either order is in her chart to schedule with gave her the number to sleep medicine in [place] [facility]01-11[facility]2024 History of Present illness Narrative* Katerin Haynes APRN-VANIA - 05/03/2023 1:15 PM EST Images from the original note were not included. [address] [facility] [address] SUBJECTIVE: Patient ID: Yani Stevens is a 33 y.o. female. Patient presents to the office with complaints of sinus congestion and dizziness. Her kids have also been sick as well. Nasal Congestion Associated symptoms include congestion. Pertinent negatives include no coughing, ear pain, neck pain, shortness of breath, sinus pressure or sore throat. Dizziness Associated symptoms include congestion. Pertinent negatives include no abdominal pain, arthralgias,chest pain, coughing, fatigue, fever, joint swelling, nausea, neck pain, numbness, rash, sore throat, vomiting or weakness. The following portions of the patient's history were reviewed and updated as appropriate: allergies, current medications, past family history, past medical history, past social history, past surgicalhistory and problem list. REVIEW OF SYSTEMS: Review [...] 1 tablet daily for 4 days.. Follow-up: [facility] Follow up with routine visits Patient noted to have elevated BMI and the following intervention(s) were applied: encouragement toexercise. VANESA Frank 05/03/23 1330 [facility] Evaluation note* Encounter Date Diagnosis Assessment Notes Treatment Notes Treatment Clinical Notes Jan, Suspected COVID-19 virus infection (ICD-10 [...] no improvement in 2 to 3 days Jan, Acute sinusitis, recurrence not specified, unspecified location (ICD-10 - J01.90) [employer] Other 04-01-2023 History of Present illness Narrative* Diann Diaz, DO - 07/22/2022 12:40 AM EDT POST OPERATIVE DAY # 2 Yani Stevens is a 32 y.o. female This patient [...] 88.2 07/21/2022 PLT 197 07/21/2022 Assessment/Plan: Yani Stevens is a POD # 2 s/p RLTCS [...] and Sudden Syndrome were reviewed with recommendations. sleeping, back to sleep and avoidance of [...] patient Attending Physician: Dr. Fish Estrada MD Financial Services Agent Resident 07/22/2022, 12:40 AM Attending Physician Statement I have personally seen, evaluated and discussed the care of Yani Stevens, including pertinent history and exam findings with [...] included. POST OPERATIVE DAY # 1 Yani Stevens is a 32 y.o. female This patient [...] 85.4 07/20/2022 PLT 200 07/20/2022 Assessment/Plan: Yani Stevens is a POD # 1 s/p RLTCS [...] with patient Attending Physician: Dr. Betina Bush, DO Financial Services Agent Resident 07/21/2022, 3:02 AM Attending Physician Statement I have discussed the care of Yani Stevens, including pertinent history and exam findings, with the resident. I have reviewed the maurer elements of all parts of the encounter with the resident. I agree with the assessment, plan and orders as documented by the resident. (GC Modifier) Electronically signed by Jennifer Moffett MD 07/21/2022 10:00 AM [facility] [employer] Phone: 1(241) 301-468703-30-2023 Evaluation note* Diagnosis RLTCS w/ IUD 07/20/22 [...] Chronic hypertension affecting documented in this encounter [facility] [employer] Phone: 1(722) 951-441903-28-2023 Evaluation note* Encounter Date Diagnosis Assessment Notes [...] other viral communicable diseases (ICD-10 - Z20.828) [employer] Other 11-29-2022 Evaluation note* Encounter Date Diagnosis [...] off of work. We will apply for [facility] approval for therapy. [employer] Other 06-21-2021 NoteEducation Materials Obstetrics and Gynecology [...] Follow these instructions at home: ? Take zvgb-jrg-mxoetmm and prescription medicines only as told by [...] menstrual period is much (more content not included)...[facility] 01-28-2020 NoteOphthalmology Basics of Medication Management UNDERSTAND [...] caregiver questions about your prescriptions and any gbue-ndv-cmiitpg medications, vitamins, herbal or dietary supplements that [...] at your local pharmacy), written chart from yourCortexicagiver, notebook, binder, or your own calendar to [...] you take. Find out if your local [employer] program has a Medicine Take Back program [...] your caregiver or pharm (more content not included)...[facility] Evaluation note* Diagnosis 35 weeks gestation of - Primary state, incidental Ultrasound recheck of pyelectasis, antepartum Other known or suspected abnormality, not elsewhere classified, affecting management of mother, antepartum condition or complication Tobacco use disorder affecting , antepartum Placenta previa without hemorrhage, antepartum Oligohydramnios, antepartum Diabetes mellitus during , antepartum Abnormality in heart rate/rhythm, antepartum condition or complication documented in this encounter [facility] Work Phone: evaluation noteNo assessment information available [facility] Work Phone: Evaluation note* Diagnosis Acute non-recurrent maxillary sinusitis- Primary documented in this encounter [facility]* Diagnosis Low back pain, unspecified back pain laterality, unspecified chronicity, unspecified whether sciatica present- Primary documented in this encounter [facility] general Narrative - Reported* Type Description Date Medical History Depression Medical History Bipolar disorder Medical History Hypertension Medical History Hypothyroidism Surgical History cholecystectomy Surgical History wisdom teeth extract Surgical History lipoma removed Surgical History left knee scope x 2 Surgical History hemorrhoidectomy Hospitalization History see above surgical histo ry [facility] [employer] Other Hospital Discharge instructions* Attachments The following attachments cannot be sent through Care Everywhere. * Section: Post-op (Gabonese) * Preeclampsia: : General Info (Gabonese) * Depression: (Gabonese) documented in this [facility] Work Phone: Instructions* Attachments The following attachments cannot be sent through Care Everywhere. * Sinusitis in adults (Gabonese) documented in this encounterProGenZum Life Sciences SystemInstructionsNot on file documented in this encounterProGenZum Life Sciences SystemInstructionsNot on file documented in this encounterProMercy HospitalTaskdoer SystemInstructionsNot on file documented in this encounterProMercy HospitalTaskdoer SystemInstructionsNot on file documented in this encounterMercy Health Urbana HospitalTaskdoer System Summary Purpose Family History No Family History Records Found Relationship Condition Age at Onset Recorded Date/T fernanda grandparent Malignant neoplasm Unknown family member Malignant neoplasm Unknown Advance Directives No Advanced Directives Records FoundLatest Code Status on File Code Status Date [...] Code 05/28/2018 9:38 AM 05/29/2018 9:44 PM Latest Code Status on File Code [...] Chief Complaint R93.89 Chief Complaint R93.89 r93.89 Reason for Referral Specialty Diagnoses / Procedures Referred By Contac t Referred To Contact Diagnoses MOLINA (obstructive sleep apnea) Procedures PSG Diagnostic Lindsey Mcmahon, CAR [employer] [address], [address] [place] [address] Referral ID Status Reason Start Date Expiration Date V isits Requested Visits Authorized [id number] Pending Review 06/29/2023 06/28/2024 1 1 Additional Source Comments INFORMATION SOURCE (unrecogn ized section and content) DATE CREATED AUTHOR 02/27/2018 [facility] DATE CREATED AUTHOR AUTHOR'S ORGANIZ ATION 09/15/2020 [facility] DATE CREATED AUTHOR AUTHOR'S ORGANIZ ATION 10/17/2020 [facility] DATE CREATED AUTHOR AUTHOR'S ORGANIZ ATION 08/25/2022 [facility] DATE CREATED AUTHOR AUTHOR'S ORGANIZ ATION 01/01/2023 [facility] DATE CREATED AUTHOR AUTHOR'S ORGANIZ ATION 06/30/2023 [facility] DATE CREATED AUTHOR AUTHOR'S ORGANIZ ATION 09/12/2023 [facility] DATE CREATED AUTHOR AUTHOR'S ORGANIZ ATION 10/29/2023 [facility] DATE CREATED AUTHOR AUTHOR'S ORGANIZ ATION 11/11/2023 [facility] REASON FOR VISIT (unrecogniz ed section and content) Specialty Diagnoses / Procedures Referred By Contac t Referred To Contact Diagnoses 36 weeks gestation of Hitesh Holloway DO [address] [place] [address] [facility] [address] [place] [address] Referral ID Status Reason Start Date Expiration Date Visits Re quested Visits Authorized [id number] 1 1 Reason Comments Nasal Congestion Dizziness Reason Onset Date Comments Sleep Lab 05/29/2023 Reason Comments Med Refill Reason Comments New Patient Sleep ConsultNo prio r sleep studyNot on PAP Specialty Diagnoses / Procedures Referred By Ismael t Referred To Contact Pulmonary Medicine Diagnoses Morning headache Memory loss Razia Muller, CAR JOCKEY-STOCKLAYER [address] [place] [id number] [facility] Pul Sleep Med [address] [place] [address] Referral ID Status Reason Start Date Expiration Date Visits Requested Visits Authorized [id number] Pending Review Specialty Services Required 06/12/2023 06/11/2024 1 1 Reason Onset Date Comments Sleep Lab 07/02/2023 PSG Scheduled Active and Recently Administ ered Medications (unrecognized section and content) Medication Order 07/13/2022 07/14/2022 07/15/2022 acetaminophen (TYLENOL) tablet 1,000 mg 1,000 mg, Oral, ONCE, 1 dose, On 07/15/22 at 1615, Maximum dose of acetaminophen is 4000 mg from all sources in 24 hours. 1559 (Held by [facility] - Provider: Diamante Estrada MD - [...] (Given - Provider: Stephany Paige APRN - THEATRICAL VARIETY AGENT) citalopram (CELEXA) tablet 20 mg 20 mg, [...] Nausea) 0812 (Given - Provider: Lakesha Loera RN)2220 (Given - Provider: Jennifer Porras) 0831 (Given - Provider: Lakesha Loera RN)2100 (Due) enoxaparin (LOVENOX) injection 40 mg 40 mg, SubCUTAneous, 2 TIMES DAILY, First dose on Sun07/21/22 at 0900, Until Discontinued, Indication of Use: Prophylaxis-DVT/PE, Administer by deep subCUTAneous injection with pt lying down. Alternate injection sites on abdominal wall. Do not rub site after injection. Check with provider prior to any invasive procedure., 0811 (Given - Provider: Lakesha Loera RN)2221 (Given - Provider: Jennifer Porras) 0828 (Given - Provider: Lakesha Loera RN)2100 (Due) famotidine (PEPCID) 20 mg in sodium [...] STAT 1720 (New Bag - Provider: Dasha Rhodes RN)1820 (Stopped - Provider: Dasha Rhodes, VIKTORIA) ibuprofen (ADVIL;MOTRIN) tablet 600 mg 600 mg, Oral, EVERY 6 HOURS, First dose on Sun07/21/22 at 1400, Until Discontinued, Do not crush or chew., 1722 (Given - Provider: Lakesha Loera RN) 0125 (Given - Provider: Jennifer Porras)0200 (Due)0830 (Given - Provider: Lakesha Loera, VIKTORIA)1400 (Due)2000 (Due) insulin lispro (HUMALOG) injection vial 0-12 Units 0-12 Units, SubCUTAneous, 4 TIMES DAILY BEFORE MEALS & NIGHTLY, First dose on [place] 07/20/22 at 2100, Until Discontinued, Intrapartum Glycemic Management [...] not administer for more than 5 days., 222 (Given - Provider: Elisa Mckeon RN) 0517 (Given - Provider: Elisa Mckeon RN)1125 (Given - Provider: Lakesha Loera RN) labetalol (NORMODYNE) tablet 200 mg (CANCELED) 200 mg, Oral, 2 times daily, First dose on Sun07/20/22 at 2100, Until Discontinued 2131 (Given - Provider: Namita Ge RN) labetalol (NORMODYNE) tablet 400 mg 400 mg, [...] Lakesha Loera RN) 0830 (Given - Provider: Lakseha Loera RN) metroNIDAZOLE (FLAGYL) tablet 500 mg 500 mg, Oral, EVERY 8 HOURS SCHEDULED (3 times per day), 6 doses, First dose on [place] 07/20/22 at 2200, Last dose on Sun07/22/22 at 1400, Antimicrobial Indications: Surgical Prophylaxis, 0005 (Given - Provider: Elisa Mckeon RN)0812 (Given - Provider: Lakesha Lorea RN)1420 (Given - Provider: Lakesha Loera RN)2221 (Given [...] (2 times per day), First dose on Sun07/20/22 at 2100, Until Discontinued, For Line Patency: [...] (NoRateChange - Provider: Stephany Paige APRN - THEATRICAL VARIETY AGENT)1829 (Paused - Provider: Agata Pollard RN - Comment: Switch to gravity)1830 (New Bag - Provider: Agata Pollard RN)1927 (New Bag - Provider: Agata Pollard RN) [...] Jennifer Porras)1135 (See Alternative - Provider: Lakesha Loera, VIKTORIA) oxytocin (PITOCIN) 10 unit bolus from the [...] without a new order from the physician. 1826 (New Bag - Provider: Agata Pollard, VIKTORIA)1839 (Rate/Dose Change - Provider: Agata Pollard, VIKTORIA) polyethylene glycol (GLYCOLAX) packet 17 g 17 g, Oral, DAILY PRN, Starting on [place] 07/20/22 at 1933, Until Discontinued, Constipation, prochlorperazine (COMPAZINE) injection 10 mg 10 mg, IntraVENous, EVERY 6 HOURS PRN, Starting on [place] 07/20/22 at 1955, Until Discontinued, Nausea, If administering IV push, administer at a maximum rate of 5 mg/minute. 2009 (Given - Provider: Namita Ge, VIKTORIA) simethicone (MYLICON) chewable tablet 80 mg 80 [...] Care Teams (unrecognized sec tion and content) Weather Stripper Relationship Specialty Start Date End Date Chas Balderas MD [address] [place] [address] PCP - General Family Medicine 06/29/23 Weather Stripper Relationship Specialty Start Date End Date Katerin Haynes, JOSHUA-STOCKLAYER [address] [place] [address] PCP - General Family Medicine 11/23/22 Team Status: Active Member Role Status Dates Aline Villalobos MD Primary Care Provider Active Team Status: Inactive Member Role Status Dates Aline Villalobos MD Primary Care Provider Active Razia Muller , CAR JOCKEY-JUMPBASTING MACHINE OPERATOR-C Attending Provider Active Goals (unrecognized section and [...] BE BASED ON THE PRIMARY CLINICAL RECORDS. [employer] provides no warranty or guarantee of the accuracy or completeness of information in this document.
== END 2023-11-14 08:31 | disposition home or self-care (01) ==
LOC: NOMS 08:31
PROVIDERS: PCP Family Medicine; Visit Provider Physician Assistant
DX: O99.283 Endocrine, nutritional and metabolic diseases complicating pregnancy, third trimester (principal); Z3A.26 26 weeks gestation of pregnancy; E03.9 Hypothyroidism, unspecified
CPT/HCPCS: 76816

== ENCOUNTER 2024-01-02 17:31 | Outpatient (OUT) | payer BC, MEDICAID, SELFPAY ==
--- NOTE | 2024-01-02 17:37 | US_ITS ---
[address] [address] Patient Name: YANI STEVENS MRN: [facility]:[id number] date: 1990 Sex: F Assigned Patient Location: US Current Patient Location: Accession/Order Number: [id number] Exam Date: 01/02/2024 17:49 Report Date: 01/03/2024 08:17 At the request of: NOAH PETERSON Procedure: US OB growth EXAMINATION: US OB growth HISTORY: ACQUIRED HYPOTHYROIDISM E03.9 COMPARISON: 11/14/2023 FINDINGS: Heart Rate: 140.63 bpm Amniotic Fluid Volume: 1.7 cm, largest fluid pocket 4.3 cm Number: 1 Position: Cephalic presentation, longitudinal lie BIOMETRY: BPD: 8.87 cm; 35 weeks 6 days; 97 % HC: 31.80 cm; 35 weeks 5 days; 94.50 % AC: 31.55 cm; 35 weeks 3 days; 97 % FL: 5.98 cm; 31 weeks 1 day; 14.30 % EFW: 2421.26 g; 96 %, 5 lbs. 5 oz. FL/AC: 18.96 FL/BPD: 67.42 HC/AC: 1.01 GESTATIONAL AGE: Age by EDC: 32 weeks 1 day SUNSHINE by EDC: 2024-02-26 Age by US: 34 weeks 4 days SUNSHINE by US: 2024-02-09 US/US OB growth IMPRESSION: BPD and abdominal circumference greater than the 97th percentile Large for gestational age, estimated weight 96th percentile Electronically authenticated by: ALINE GALICIA Date: 01/03/2024 08:17
--- OUTSIDE RECORDS SUMMARY | 2024-01-02 17:41 | XMS_ITS | CCD ---
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 [address] [address] Machine Shop Instructor: Gideon Bullock MD PH,Ur 6.0 Normal 5.0-8.0 [facility] Comment on above: Performed By: #### U AMIC, URTPRT #### [address] [address] Machine Shop Instructor: Gideon Bullock MD Protein Ql (U) Negative Normal NEG [facility] Comment on above: Performed By: #### U AMIC, URTPRT #### [address] [address] Machine Shop Instructor: Gideon Bullock MD Spec. [place],Ur 1.021 Normal 1.005-1.[address] [facility] Comment on above: Performed By: #### U AMIC, URTPRT #### [address] [address] Machine Shop Instructor: Gideon Bullock MD Urine RBC's 20 TO 50 Normal 0-4 [facility] Comment on above: Result Comment: Refe rence range defined for non-centrifuged specimen. Performed By: #### U AMIC, URTPRT #### [address] [address] Machine Shop Instructor: Gideon Bullock MD Urine WBC's 0 TO 2 Normal 0-5 [facility] Comment on above: Performed By: #### U AMIC, URTPRT #### [address] [address] Machine Shop Instructor: Gideon Bullock MD Urobilinogen,Ur Normal Normal 0.0-1.0 [facility] Comment on above: Performed By: #### U AMIC, URTPRT #### [address] [address] Machine Shop Instructor: Gideon Bullock MD Vaginitis DNA Probeon 2023 Litzy Negative Normal NEG [facility] Comment on above: Result Comment: for Litzy sp. Method of testing is a DNA probe intended for detection and identification of Litzy species, Gardnerella vaginalis, and Trichomonas vaginalis nucleic acid in vaginal fluid specimens from patients with symptoms of vaginitis/vaginosis. Performed By: #### V AGP #### [address] [address] Machine Shop Instructor: Gideon Bullock MD Gardnerella Positive Abnormal NEG [facility] Comment on above: Result Comment: for Gardnerella vaginalis Performed By: #### V AGP #### [address] [address] Machine Shop Instructor: Gideon Bullock MD Trichomonas Negative Normal NEG [facility] Comment on above: Result Comment: for Trichomonas Vaginalis Performed By: #### V AGP #### [address] [address] Machine Shop Instructor: Gideon Bullock MD Source .VAGINAL SWAB Normal [facility] Comment on above: Performed By: #### V AGP #### [address] [address] Machine Shop Instructor: Gideon Bullock MD Thyroid Stim. Horm.on 2023 Thyroid Stim. Horm. 1.48 uIU/mL Normal 0.27-4.20 [facility] Comment on above: Performed By: #### T SH, FT4 #### [facility] [address] [place] [address] Machine Shop Instructor: Gideon Bullock MD Thyroxine, Freeon 12-06-2023 Thyroxine, Free 0.9 ng/dL Low 0.92-1.68 [facility] Comment on above: Performed By: #### T SH, FT4 #### [address] [address] Machine Shop Instructor: Gideon Bullock MD Thyroid Stim. Horm.on 2023 Thyroid Stim. Horm. 1.66 uIU/mL Normal 0.27-4.20 [facility] Comment on above: Performed By: #### F T4, TSH #### [facility] [address] [place] [address] Machine Shop Instructor: Gideon Bullock MD Thyroxine, Freeon 11-08-2023 Thyroxine, Free 0.9 ng/dL Low 0.92-1.68 [facility] Comment on above: Performed By: #### F T4, TSH #### [facility] [address] [place] [address] Machine Shop Instructor: Gideon Bullock MD PT Mutation 35731ic 10-13-19 PT [id number] VARIANT Negative Normal [facility] Comment on above: Result Comment: (NOT E) Indication for testing: Assess genetic risk for thrombosis. NEGATIVE: The Factor II, prothrombin C39208C mutation, was not detected. Other causes of [...] Dsouza, Ph.D. 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 PATHOGENIC VARIANT TESTED: F2 c.*97G>A (Q24556T). CLINICAL SENSITIVITY FOR VENOUS THROMBOSIS: Approximately 10 percent. METHODOLOGY: Polymerase chain reaction and fluorescence monitoring. ANALYTICAL SENSITIVITY AND SPECIFICITY: 99 percent. LIMITATIONS: Diagnostic errors can occur due to rare sequence variations. F2 gene variants, other than c.*97G>A (H93832J), will not be detected. This test was developed and its performance characteristics determined by [facility]. It has not been cleared or approved by the [place] Food and Drug Administration. This test was performed in a CLIA certified laboratory and is intended for clinical purposes. Counseling and informed consent are recommended for genetic testing. Consent forms are available online. Performed By: [facility] [address] [place] [address] Registered Appraiser: Andrew Duran MD, PhD CLIA Number: [id number] Performed By: #### F T4, TSH #### [address] [id number] Machine Shop Instructor: Gideon Bullock MD PT PCR SPECIMEN Whole Blood Normal [facility] Comment on above: Performed By: #### F T4, TSH #### [address] [id number] Machine Shop Instructor: Gideon Bullock MD Factor V Mutationon 10-12-19 24 F 5 SPECIMEN Whole Blood Normal [facility] Comment on above: Performed By: #### U AMIC, URTPRT #### [address] [id number] Machine Shop Instructor: Gideon Bullock MD FACTOR 5 MUTATION Negative Normal [facility] Comment on above: Result Comment: (NOT E) Indication for testing: Assess genetic risk for thrombosis. NEGATIVE: The factor V Leiden variant, c.1601G>A; p.Bhf524Zby, was not detected. This does not exclude [...] function in the F5 gene variant c.1601G>A (p.Gsv094Udo). Legacy nomenclature: R506Q (1691G>A) CLINICAL SENSITIVITY: 20-50 percent of individuals with an isolated VTE have the FVL variant. METHODOLOGY: Polymerase chain reaction and fluorescence monitoring. ANALYTICAL SENSITIVITY AND SPECIFICITY: 99 percent. LIMITATIONS: Diagnostic errors can occur due to rare sequence variations. F5 gene mutations, other than p.Sss695Vyg, will not be detected. This test was developed and its performance characteristics determined by [facility]. It has not been cleared or approved by the [place] Food and Drug Administration. This test was performed in a CLIA certified laboratory and is intended for clinical purposes. Counseling and informed consent are recommended for genetic testing. Consent forms are available online. Performed By: [facility] [address] [place] [address] Registered Appraiser: Andrew Duran MD, PhD CLIA Number: [id number] Performed By: #### U AMIC, URTPRT #### [facility] [address] [place] [address] Machine Shop Instructor: Gideon Bullock MD MTHFR Gene Mutationon 2023 MTHFR 1286 A>C Mut Heterozygous Normal [facility] Comment on above: Performed By: #### F T4, TSH #### [facility] [address] [place] [address] Machine Shop Instructor: Gideon Bullock MD MTHFR 655C>T Mut Negative Normal [facility] Comment on above: Performed By: #### F T4, TSH #### [facility] [address] [place] [address] Machine Shop Instructor: Gideon Bullock MD MTHFR Interpretation See Note Normal [facility] Comment on above: Result Comment: (NOT E) Indication for testing: Determine genetic contribution to hyperhomocysteinemia. 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 The [employer] Practice Guidelines indicate [...] a contributing factor to hyperhomocysteinemia. Variants Tested: c.665C>T(p.Vgq552Jhn) and c.1286A>C(p.Bhj354Aoe). (legacy names C677T and Y4583X, respectively). Clinical Sensitivity: Undefined; hyperhomocysteinemia is caused [...] developed and its performance characteristics determined by [facility]. It has not been cleared or approved by the [place] Food and Drug Administration. This test was performed in a CLIA certified laboratory and is intended for clinical purposes. Counseling and informed consent are recommended for genetic testing. Consent forms are available online. Performed By: [facility] [address] [place] [address] Registered Appraiser: Andrew Duran MD, PhD [place] Number: [id number] Performed By: #### F T4, TSH #### [address] [address] Machine Shop Instructor: Gideon Bullock MD MTHFR SPECIMEN Whole Blood Normal [facility] Comment on above: Performed By: #### F T4, TSH #### [facility] [address] [place] [address] Machine Shop Instructor: Gideon Bullock MD AFP, Maternalon 10-11-2023 Determined by Ultrasound Normal [facility] Comment on above: Performed By: #### U AMIC, URTPRT #### [address] [address] Machine Shop Instructor: Gideon Bullock MD Due Date SEE NOTE Normal [facility] Comment on above: Result Comment: Resu lts for Estimated Due Date: 02 26 24 Performed By: #### U AMIC, URTPRT #### [facility] [address] [place] [address] Machine Shop Instructor: Gideon Bullock MD Family History No Normal [facility] Comment on above: Performed By: #### U AMIC, URTPRT #### [facility] [address] [place] [address] Machine Shop Instructor: Gideon Bullock MD Gestat Age (exact) 20 wks, 0 days Normal [facility] Comment on above: Performed By: #### U AMIC, URTPRT #### [facility] [address] [place] [address] Machine Shop Instructor: Gideon Bullock MD Ins Req Matern Diab Yes [facility] Comment on above: Performed By: #### U AMIC, URTPRT #### [facility] [address] [place] [address] Machine Shop Instructor: Gideon Bullock MD Interpretation Screen Neg Normal [facility] Comment on above: Result Comment: (NOT E) [...] developed and its performance characteristics determined by [facility]. It has not been cleared or approved by the US Food and Drug Administration. This test was performed in a CLIA certified laboratory and is intended for clinical purposes. Performed By: #### U AMIC, URTPRT #### [address] [address] Machine Shop Instructor: Gideon Bullock MD [age] [facility] Comment on above: Performed By: #### U AMIC, URTPRT #### [facility] [address] [place] [address] Machine Shop Instructor: Gideon Bullock MD Maternal Race Nonblack [facility] Comment on above: Performed By: #### U AMIC, URTPRT #### [facility] [address] [place] [address] Machine Shop Instructor: Gideon Bullock MD Maternal Weight 298.0 lbs. [facility] Comment on above: Performed By: #### U AMIC, URTPRT #### [facility] [address] [place] [address] Machine Shop Instructor: Gideon Bullock MD MoM for AFP 1.29 [facility] Comment on above: Performed By: #### U AMIC, URTPRT #### [facility] [address] [place] [address] Machine Shop Instructor: Gideon Bullock MD Number of Fetuses [facility] Comment on above: Performed By: #### U AMIC, URTPRT #### [facility] [address] [place] [address] Machine Shop Instructor: Gideon Bullock MD Patient's AFP 39 ng/mL [facility] Comment on above: Performed By: #### U AMIC, URTPRT #### [facility] [address] [place] [address] Machine Shop Instructor: Gideon Bullock MD Smoking No [facility] Comment on above: Performed By: #### U AMIC, URTPRT #### [facility] [address] [place] [address] Machine Shop Instructor: Gideon Bullock MD Specimen See Note [facility] Comment on above: Result Comment: (NOT E) Initial sample Performed By: [facility] [address] [place] [address] Registered Appraiser: Andrew Duran MD, PhD CLIA Number: [id number] Performed By: #### U AMIC, URTPRT #### [facility] [address] [place] [address] Machine Shop Instructor: Gideon Bullock MD AFP, Maternalon 10-10-2023 Current Smoking NO [facility] Comment on above: Performed By: #### U AMIC, URTPRT #### [facility] [address] [place] [address] Machine Shop Instructor: Gideon Bullock MD Dating US [facility] Comment on above: Performed By: #### U AMIC, URTPRT #### [facility] [address] [place] [address] Machine Shop Instructor: Gideon Bullock MD Diabetic YES [facility] Comment on above: Performed By: #### U AMIC, URTPRT #### [facility] [address] [place] [address] Machine Shop Instructor: Gideon Bullock MD Donor Egg NO [facility] Comment on above: Performed By: #### U AMIC, URTPRT #### [facility] [address] [place] [address] Machine Shop Instructor: Gideon Bullock MD Estimated Due Date [facility] Comment on above: Performed By: #### U AMIC, URTPRT #### [facility] [address] [place] [address] Machine Shop Instructor: Gideon Bullock MD Family History NONE [facility] Comment on above: Performed By: #### U AMIC, URTPRT #### [facility] [address] [place] [address] Machine Shop Instructor: Gideon Bullock MD In Vitro Fertalizat NO [facility] Comment on above: Performed By: #### U AMIC, URTPRT #### [address] [address] Machine Shop Instructor: Gideon Bullock MD LMP date [id number] [facility] Comment on above: Performed By: #### U AMIC, URTPRT #### [address] [address] Machine Shop Instructor: Gideon Bullock MD Maternal date [facility] Comment on above: Performed By: #### U AMIC, URTPRT #### [address] [address] Machine Shop Instructor: Gideon Bullock MD Maternal Weight 298 [facility] Comment on above: Performed By: #### U AMIC, URTPRT #### [address] [address] Machine Shop Instructor: Gideon Bullock MD Monochorionic Twins NO [facility] Comment on above: Performed By: #### U AMIC, URTPRT #### [address] [address] Machine Shop Instructor: Gideon Bullock MD Patient Weight Units LB [facility] Comment on above: Performed By: #### U AMIC, URTPRT #### [address] [address] Machine Shop Instructor: Gideon Bullock MD Race (Maternal) NON BLACK [facility] Comment on above: Performed By: #### U AMIC, URTPRT #### [address] [address] Machine Shop Instructor: Gideon Bullock MD Repeat Specimen NO [facility] Comment on above: Performed By: #### U AMIC, URTPRT #### [facility] [address] [place] [phone] Machine Shop Instructor: Gideon Bullock MD Valproic/Carbamazep NONE Normal [facility] Comment on above: Performed By: #### U AMIKaushik URTPRT #### [facility] [address] [place] [phone] Machine Shop Instructor: Gideon Bullock MD Antithrombin III Kasia 10-09 Antithrombin III Act 110 % Normal 83-122 [facility] Comment on above: Result Comment: Patients receiving Hirudin may have a falsely decreased Antitrombin III Activity. Performed By: #### U VIVIEN URTPRT #### [facility] [address] [place] [address] Machine Shop Instructor: Gideon Bullock MD Lupus Anticoagulanton 2023 Anticardiolipin IgA 1.8 APL Normal 0.0-14.0 [facility] Comment on above: Result Comment: Reference Range: <14.0 Negative 14.0-20.0 Equivocal >20.0 Positive When results are Equivocal, it is recommended to retest after 4-6 weeks. Performed By: #### Jona PUGA URTPRT #### [facility] [address] [place] [address] [phone] Machine Shop Instructor: Gideon Bullock MD Anticardiolipin IgG <0.5 Normal 0.0-10.0 [facility] Comment on above: Result Comment: Reference Range: <10.0 Negative 10.0-40.0 Equivocal >40.0 Positive Performed By: #### U VIVIEN URTPRT #### [facility] [address] [place] [address] [phone] Machine Shop Instructor: Gideon Bullock MD Anticardiolipin IgM <0.8 Normal 0.0-10.0 [facility] Comment on above: Result Comment: Reference Range: <10.0 Negative 10.0-40.0 Equivocal >40.0 Positive Performed By: #### U AMIC, URTPRT #### [facility] [address] [place] [address] Machine Shop Instructor: Gideon Bullock MD Dilute Heladio Viper Negative Normal [facility] Comment on above: Performed By: #### U AMIC, URTPRT #### [facility] [address] [place] [address] Machine Shop Instructor: Gideon Bullock MD Protein C Activityon 024 Protein C Activity 136 % Normal >80 [facility] Comment on above: Result Comment: Patients on warfarin will have decreased functional protein C/S values. Warfarin therapy should be discontinued for two weeks for accurate measurement of functional protein C/S levels. Artifactually elevated levels of functional protein C/S may be seen in patients receiving heparin,rivaroxaban,apixaban,edozaban,and dabiqatran. Decreased functionality may be seen in patients with abnormally elevated levels of Factor VIII. Performed By: #### U AMIC, URTPRT #### [facility] [address] [place] [address] Machine Shop Instructor: Gideon Bullock MD Protein S Activityon 024 Protein S Activity 68 % Normal 59-130 [facility] Comment on above: Result Comment: Patients on warfarin will have decreased functional protein C/S values. Warfarin therapy should be discontinued for two weeks for accurate measurement of functional protein C/S levels. Artifactually elevated levels of functional protein C/S may be seen in patients receiving heparin,rivaroxaban,apixaban,edozaban,and dabiqatran. Decreased functionality may be seen in patients with abnormally elevated levels of Factor VIII. Performed By: #### U AMIC, URTPRT #### [facility] [address] [place] [address] Machine Shop Instructor: Gideon Bullock MD Hemoglobin A1Con 10-09-2023 Glucose [Mass/Vol] 103 mg/dL Normal [facility] Comment on above: Result Comment: The ADA and AACC recommend providing the estimated average glucose result to permit better patient understanding of their HBA1c result. Performed By: #### U AMIC URTPRT #### [facility] [address] [place] [address] Machine Shop Instructor: Gideon Bullock MD HbA1c (Bld) [Mass fraction] 5.2 % Normal 4.0-6.0 [facility] Comment on above: Performed By: #### U AMIC, URTPRT #### [facility] [address] [place] [address] Machine Shop Instructor: Gideon Bullock MD Homocysteineon 10-09-2023 Homocysteine 4.3 umol/L Normal 0.0-15.0 [facility] Comment on above: Performed By: #### U AMIC URTPRT #### [facility] [address] [place] [address] Machine Shop Instructor: Gideon Bullock MD Lupus Anticoagulanton 2023 aPTT Coag (Bld) [Time] 27.5 s Normal 23.0-36.5 [facility] Comment on above: Result Comment: IV Heparin Therapy Range: 66.0-92.0 sec Performed By: #### U AMIKaushik URTPRT #### [facility] [address] [place] [address] Machine Shop Instructor: Giedon Bullock MD INR Coag (PPP) [Relative time] 1.0 {INR} Normal [facility] Comment on above: Result Comment: Therapeutic Range: Moderate Anticoagulant Intensity: INR = 2.0-3.0 High Anticoagulant Intensity: INR = 2.5-3.5 Performed By: #### U AMIC, URTPRT #### [facility] [address] [place] [address] Machine Shop Instructor: Gideon Bullock MD PT Coag (PPP) [Time] 13.1 s Normal 11.7-14.9 [facility] Comment on above: Performed By: #### U AMIC, URTPRT #### [facility] [address] Machine Shop Instructor: Gideon Bullock MD Protein,Tot,[place] U[place] 2023 Creatinine [Mass/Vol] 120.0 mg/dL Normal 28.0-217.0 [facility] Comment on above: Performed By: #### U RTPRT #### [address] [address] Machine Shop Instructor: Gideon Bullock MD Tot Prot. Conc. 10 mg/dL Normal [facility] Comment on above: Result Comment: No n ormal range established. Performed By: #### U RTPRT #### [address] [address] Machine Shop Instructor: Gideon Bullock MD TP/Cre Ratio 0.08 Normal [facility] Comment on above: Performed By: #### U RTPRT #### [address] [address] Machine Shop Instructor: Gideon Bullock MD Thyroid Stim. Horm.on 2023 Thyroid Stim. Horm. 2.35 uIU/mL Normal 0.27-4.20 [facility] Comment on above: Performed By: #### U AMIC, URTPRT #### [address] [address] Machine Shop Instructor: Gideon Bullock MD Thyroxine, Freeon 10-09-2023 Thyroxine, Free 0.9 ng/dL Low 0.92-1.68 [facility] Comment on above: Performed By: #### U AMIC, URTPRT #### [address] [address] Machine Shop Instructor: Gideon Bullock MD XR FOOT RT MIN 3 VWSon [...] Blas MD on 09/10/2023 12:57 PM Normal [facility] MR BRAIN W WO CONTon 024 MR BRAIN W WO CONT MR [...] Rice MD on 06/14/2023 8:30 AM Normal [facility] BASIC METABOLIC PANLon 05-16 Anion gap [Moles/Vol] 10 mmol/L Normal 5-15 [facility] Comment on above: Performed By: #### B MP, CBCA #### [facility] ([id number]) [address] [place] [address], [place] [address] Calcium [Mass/Vol] 8.9 mg/dL Normal 8.5-10.5 [facility] Comment on above: Performed By: #### B JOSE FERGUSON #### [facility] ([id number]) [address] [place] [address] Chloride [Moles/Vol] 107 mmol/L Normal 98-109 [facility] Comment on above: Performed By: #### B PHYLLIS CBCA #### [facility] ([id number]) [address] [place] [address] CO2 [Moles/Vol] 18 mmol/L Low 22-32 [facility] Comment on above: Performed By: #### B JOSE FERGUSON #### [facility] ([id number]) [address] [place] [address] Creatinine [Mass/Vol] 0.58 mg/dL Normal 0.40-1.00 [facility] Comment on above: Result Comment: METH OD TRACEABLE TO IDMS STANDARD Performed By: #### B JOSE FERGUSON #### [facility] ([id number]) [address] [place] [address] 59629 eGFR (CKD-EPI) NON-RACE DEPENDENT >90 Normal >59 [facility] Comment on above: Result Comment: Reported eGFR is based on the CKD-EPI 2020 equation that does not use a race coefficient. Performed By: #### B JOSE FERGUSON #### [facility] ([id number]) [address] [place] [address] 43322 Glucose [Mass/Vol] 109 mg/dL High 65-99 [facility] Comment on above: Performed By: #### B FERNANDA FERGUSONA #### [facility] [place] [place] ([id number]) [address] [place] [address] 72959 Potassium [Moles/Vol] 3.3 mmol/L Low 3.5-5.0 [facility] Comment on above: Performed By: #### B PHYLLIS CBCA #### [facility] [place] [place] ([id number]) [address] [place] [address] 04417 Sodium [Moles/Vol] 135 mmol/L Normal 134-146 [facility] Comment on above: Performed By: #### B MP, CBCA #### [facility] [place] ([id number]) [address] [place] [address] 84219 Urea nitrogen [Mass/Vol] 16 mg/dL Normal 5-23 [facility] Comment on above: Performed By: #### B MP, CBCA #### [facility] [place] [place] ([id number]) [address] [place] [address] 32205 CBC AND AUTO DIFFon 05-16-19 24 ABSOLUTE BASOPHIL 0.1 X10E9/L Normal 0.0-0.2 [facility] Comment on above: Performed By: #### B MP, CBCA #### [facility] [place] ([id number]) [address] [place] [address] 48216 ABSOLUTE NEUTROPHIL 4.6 X10E9/L Normal 1.5-6.6 [facility] Comment on above: Performed By: #### B MP, CBCA #### [facility] [place] [place] ([id number]) [address] [place] [address] 23030 Basophils/100 WBC (Bld) 0.7 % Normal [facility] Comment on above: Performed By: #### B MP, CBCA #### [facility] [place] [place] ([id number]) [address] [place] [address] 75666 Eosinophils (Bld) [#/Vol] 0.3 10*3/uL Normal 0.0-0.4 [facility] Comment on above: Performed By: #### B MP, CBCA #### [facility] [place] [place] ([id number]) [address] [place] [address] 21915 Eosinophils/100 WBC (Bld) 4.4 % Normal [facility] Comment on above: Performed By: #### B MP, CBCA #### [facility] [place] [place] ([id number]) [address] [place] [address] 01775 Erythrocyte distribution width (RBC) [Ratio] 13.3 % Normal 11.5-15.0 [facility] Comment on above: Performed By: #### B MP, CBCA #### [facility] [place] [place] ([id number]) [address] [place] [address] 15682 Hematocrit (Bld) [Volume fraction] 40.5 % Normal 35-47 [facility] Comment on above: Performed By: #### B MP, CBCA #### [facility] [place] [place] ([id number]) [address] [place] [address] 57961 Hemoglobin (Bld) [Mass/Vol] 13.8 g/dL Normal 11.7-15.5 [facility] Comment on above: Performed By: #### B MP, CBCA #### [facility] [place] [place] ([id number]) [address] [place] [address] 20358 Lymphocytes (Bld) [#/Vol] 2.0 10*3/uL Normal 1.0-3.5 [facility] Comment on above: Performed By: #### B MP, CBCA #### [facility] [place] [place] ([id number]) [address] [place] [address] 40461 Lymphocytes/100 WBC (Bld) 26.3 % Normal [facility] Comment on above: Performed By: #### B MP, CBCA #### [facility] [place] ([id number]) [address] [place] [address] 77364 MCH (RBC) [Entitic mass] 27.9 pg Normal 27-34 [facility] Comment on above: Performed By: #### B MP, CBCA #### [facility] [place] [place] ([id number]) [address] [place] [address] 27010 MCHC (RBC) [Mass/Vol] 34.0 g/dL Normal 32-36 [facility] Comment on above: Performed By: #### B MP, CBCA #### [facility] [place] ([id number]) [address] [place] [address] 40687 MCV (RBC) [Entitic vol] 82 fL Normal 80-100 [facility] Comment on above: Performed By: #### B MP, CBCA #### [facility] [place] ([id number]) [address] [place] [address] 03688 Monocytes (Bld) [#/Vol] 0.5 10*3/uL Normal 0-0.9 [facility] Comment on above: Performed By: #### B MP, CBCA #### [facility] [place] ([id number]) [address] [place] [address] 34135 Monocytes/100 WBC (Bld) 6.9 % Normal [facility] Comment on above: Performed By: #### B MP, CBCA #### [facility] [place] ([id number]) [address] [place] [address] 53043 Neutrophils/100 WBC (Bld) 61.7 % Normal [facility] Comment on above: Performed By: #### B MP, CBCA #### [facility] [place] ([id number]) [address] [place] [address] 06986 Platelet mean volume (Bld) [Entitic vol] 8.4 fL Normal 7-12 [facility] Comment on above: Performed By: #### B MP, CBCA #### [facility] [place] ([id number]) [address] [place] [address] 77093 Platelets (Bld) [#/Vol] 247 10*3/uL Normal 150-450 [facility] Comment on above: Performed By: #### B MP, CBCA #### [facility] [place] [place] ([id number]) [address] [place] [address] RBC COUNT 4.93 X10E12/L Normal 3.80-5.20 [facility] Comment on above: Performed By: #### B MP, CBCA #### [facility] [place] ([id number]) [address] [place] [address] 95186 WBC (Bld) [#/Vol] 7.5 10*3/uL Normal 4.0-11.0 [facility] Comment on above: Performed By: #### B MP, CBCA #### [facility] [place] [place] ([id number]) [address] [place] [address] BRAIN WO CONT[address] CT BRAIN WO [...] Leon MD on 05/16/2023 10:57 AM Normal [facility] HCG ( test) Ql (U)o n 05-16-2023 Beta HCG ( test) Ql (U) Negative Normal NEG [facility] Comment on above: Performed By: #### 2 106-3 #### [facility] [place] ([id number]) [address] [place] [address] 34382 URN MACROSCOPIC NURon 2023 BILIRUBIN TADEO Negative Normal NEG [facility] Comment on above: Performed By: #### N UM #### [facility] [place] ([id number]) [address] [place] [address] [place] [address] BLOOD/HGB TADEO Negative Normal NEG [facility] Comment on above: Performed By: #### N UM #### [facility] [place] [place] ([id number]) [address] [place] [address], [place] [address] GLUCOSE TADEO Negative Normal NEG [facility] Comment on above: Performed By: #### N UM #### [facility] [place] ([id number]) [address] [place] [address], [place] [address] KETONES TADEO Negative Normal NEG [facility] Comment on above: Performed By: #### N UM #### [facility] [place] ([id number]) [address] [place] [address] [place] [address] LEUKOCYTE ESTERASE TADEO Negative Normal NEG [facility] Comment on above: Performed By: #### N UM #### [facility] [place] ([id number]) [address] [place] [address] [place] [address] NITRITE TADEO Negative Normal NEG [facility] Comment on above: Performed By: #### N UM #### [facility] [place] ([id number]) [address] [place] [address] [place] [address] PH TADEO 6.5 Normal 5.0-8.5 [facility] Comment on above: Performed By: #### N UM #### [facility] [place] ([id number]) [address] [place] [address] [place] [address] PROTEIN TADEO Negative Normal NEG [facility] Comment on above: Performed By: #### N UM #### [facility] [place] ([id number]) [address] [place] [address], [place] [address] SPECIFIC GRAVITY TADEO 1.025 Normal 1.003-1.035 [facility] Comment on above: Performed By: #### N UM #### [facility] [place] ([id number]) [address] [place] [address] UROBILINOGEN TADEO 0.2 eu/dL Normal <1.1 [facility] Comment on above: Performed By: #### N UM #### [facility] [place] [place] ([id number]) [address] [facility] [facility] [place] [address] COVID + FLU Quick Testingon 02-05-2023 SARS-CoV-2 (COVID-19) RNA SARANYA+probe Ql (Unsp spec) Negative TESARO [facility] [employer] Other COVID + FLU Quick Testing Negative [email or web address] Other Aerobic Cultureon 12-22-2022 Aerobic Culture Comment tube 2 No Growth 2 Days Comment tube 2 No Anaerobes Isolated 3 Days Comment tube 2 Gram Stain Result No White Blood Cells Seen No Bacteria Seen PERFORMED BY: [address] [address] PATHOLOGIST PIPE FITTER HELPER ALLEN COATES M.D. [facility] Comment on above: Performed By: #### C BC, PT, PTT #### [facility] [address] [address] [facility] CSF PCR Panelon 12-22-2022 CSF PCR Panel [...] Varicella zoster virus Not detected PERFORMED BY: [address] [address] PATHOLOGIST PIPE FITTER HELPER ALLEN COATES M.D. [facility] Comment on above: Performed By: #### C SF PCR PANEL #### [facility] [address] [place] [address] Cell Count Differential,CSFo n 12-22-2022 Appearance, CSF Clear Normal Clear [facility] Comment on above: Order Comment: Comme nt tube 1 Performed By: #### C SFCCDIFF #2, CSF TP #2, CSF GLU #2, CSF GLU, CSF TP, GS, AERC, CSFCCDIFF #### [facility] [address] [place] [address] Order Comment: Comme nt tube 4 Color, CSF Colorless Normal Colorless [facility] Comment on above: Order Comment: Comme nt tube 1 Performed By: #### C SFCCDIFF #2, CSF TP #2, CSF GLU #2, CSF GLU, CSF TP, GS, AERC, CSFCCDIFF #### [facility] [address] [place] [address] Order Comment: Comme nt tube 4 CSF Supernatant Color Colorless Normal Colorless [facility] Comment on above: Order Comment: Comme nt tube 1 Performed By: #### C SFCCDIFF #2, CSF TP #2, CSF GLU #2, CSF GLU, CSF TP, GS, AERC, CSFCCDIFF #### [facility] [address] [place] [address] Order Comment: Comme nt tube 4 CSF Volume, Total 29.4 mL Normal [facility] Comment on above: Order Comment: Comme nt tube 1 Performed By: #### C SFCCDIFF #2, CSF TP #2, CSF GLU #2, CSF GLU, CSF TP, GS, AERC, CSFCCDIFF #### [facility] [address] [place] [address] Order Comment: Comme nt tube 4 Lymphocytes, CSF 4 Normal [facility] Comment on above: Order Comment: Comme nt tube 1 Result Comment: The reference interval and other method performance specifications have not been established for this body fluid. The test result must be integrated into the clinical context for interpretation. Performed By: #### C SFCCDIFF #2, CSF TP #2, CSF GLU #2, CSF GLU, CSF TP, GS, AERC, CSFCCDIFF #### [address] RBC, CSF 2 /uL [facility] Comment on above: Order Comment: Comme nt tube 1 Result Comment: The reference interval and other method performance specifications have not been established for this body fluid. The test result must be integrated into the clinical context for interpretation. Performed By: #### C SFCCDIFF #2, CSF TP #2, CSF GLU #2, CSF GLU, CSF TP, GS, AERC, CSFCCDIFF #### [address] TNC, CSF 1 /uL Normal 0-5 [facility] Comment on above: Order Comment: Comme nt tube 1 Performed By: #### C SFCCDIFF #2, CSF TP #2, CSF GLU #2, CSF GLU, CSF TP, GS, AERC, CSFCCDIFF #### [address] Order Comment: Comme nt tube 4 Tube Number Tested, CSF Tube Number: 1 Normal [facility] Comment on above: Order Comment: Comme nt tube 1 Result Comment: PERF ORMED BY: [place] [address] PATHOLOGIST PIPE FITTER HELPER ALLEN COATES M.D. Performed By: #### C SFCCDIFF #2, CSF TP #2, CSF GLU #2, CSF GLU, CSF TP, GS, AERC, CSFCCDIFF #### [address] Cell Count Differential,CSF #2on 12-22-2022 Lymphocytes, CSF 7 Normal [facility] Comment on above: Order Comment: Comme nt tube 4 Result Comment: The reference interval and other method performance specifications have not been established for this body fluid. The test result must be integrated into the clinical context for interpretation. Performed By: #### C SFCCDIFF #2, CSF TP #2, CSF GLU #2, CSF GLU, CSF TP, GS, AERC, CSFCCDIFF #### [address] RBC, CSF 1 /uL Normal [facility] Comment on above: Order Comment: Comme nt tube 4 Result Comment: The reference interval and other method performance specifications have not been established for this body fluid. The test result must be integrated into the clinical context for interpretation. Performed By: #### C SFCCDIFF #2, CSF TP #2, CSF GLU #2, CSF GLU, CSF TP, GS, AERC, CSFCCDIFF #### [facility] [address] [place] [address] Tube Number Tested, CSF Tube Number: 4 Normal [facility] Comment on above: Order Comment: Comme nt tube 4 Result Comment: PERF ORMED BY: [place] [address] PATHOLOGIST PIPE FITTER HELPER ALLEN COATES M.D. Performed By: #### C SFCCDIFF #2, CSF TP #2, CSF GLU #2, CSF GLU, CSF TP, GS, AERC, CSFCCDIFF #### [facility] [address] [place] [address] Cerebrospinal fluid post-adams trifugation appearance determinationOrdered By: Razia Muller on 12-22-2022 Appearance (Spun CSF) Colorless Colorless [facility] Cerebrospinal fluid sample t ube volume measurementOrdered By: Razia Muller on 12-22-2022 Specimen volume (CSF) 29.4 mL [facility] Color CSFOrdered By: Razia longo on 12-22-2022 Color (CSF) Colorless Colorless [facility] Glucose, CSF #2on 12-22-2022 Glucose, CSF #2 71 mg/dL High 40-70 [facility] Comment on above: Order Comment: Comme nt tube 4 Performed By: #### C BC, PT, PTT #### [facility] [address] [place] [address] [place] Glucose, Spinal Fluidon Glucose, Spinal Fluid 73 mg/dL High 40-70 [facility] Comment on above: Order Comment: Comme nt tube 1 Performed By: #### C SFCCDIFF #2, CSF TP #2, CSF GLU #2, CSF GLU, CSF TP, GS, AERC, CSFCCDIFF #### [place] [id number] [facility] Gram Stainon 12-22-2022 Microscopic observation Gram stain Nom (Unsp spec) Comment tube 2 Gram Stain Result No White Blood Cells Seen No Bacteria Seen PERFORMED BY: [place] [address] PATHOLOGIST PIPE FITTER HELPER ALLEN COATES M.D. [facility] Comment on above: Performed By: #### C SFCCDIFF #2, CSF TP #2, CSF GLU #2, CSF GLU, CSF TP, GS, AERC, CSFCCDIFF #### [address] IR guided lumbar puncture LP on 12-22-2022 IR guided lumbar puncture LP [facility] Main [place] [address] [place] [address] Interventional Radiology Rpt Signed Patient: Yani Stevens MR#: [id number] : 1990 Acct:[id number] Age/Sex: 32 / F ADM Date: 12/22/22 Loc: XD Room: Type: [facility] Attending Dr: Razia EVANGELISTA Copies to: TONJA [...] Vernon Lin M.D.12/22/2022 1:07 PM Dictation Location: [place] [address] Transcribed By: PATT 12/22/22 1307 Dictated By: Vernon Lin II, MD 12/22/22 5761 Signed By: 12/22/22 2280 [facility] 12-22-2022 L ---- Specimen: [id number] Received: 12/22/22 Status: TERRANCE Perla Num: [id number] Spec Type: Cytology Subm Dr: Razia Muller, INSECT CONTROL AIDE-HAZARDOUS SUBSTANCES ENGINEER-C Tissues: A CSF (CSF) Procedures: Cyto Prepstain, DIFF QWIK, PAPSTN Age/ Patient Sex Location Account Attending Physician Yani Stevens 32/F XD [id number] JON Jimenez-Kaushik SPEC NUM: [id number] RECD: 12/22/22 STATUS: TERRANCE PERLA NUM: [id number] TOMASA: 12/22/[address] [facility] [address]: CHRISTI JimenezP-Kaushik ENTERED: 12/22/22 [facility] DR: Vernon Lin II, MD SPEC TYPE: Cytology DEPT: CN ENTERED BY: [id number] RECV BY: [id number] ORDERED: Cyto Prepstain, DIFF QWIK, PAPSTN ORDERED: [...] [id number] Received: 12/22/22 Status: TERRANCE Perla Num: [id number] Spec Type: Cytology Subm Dr: Razia Muller, INSECT CONTROL AIDE-HAZARDOUS SUBSTANCES ENGINEER-C Tissues: A CSF (CSF) Procedures: Cyto Prepstain, DIFF QWIK, PAPSTN Patient: Yani Stevens [id number] (Continued) Signed (signature on file) Dimas De Anda MD 12/26/22 09 [facility] Manual cerebrospinal fluid e rythrocytes count (number/volume)Ordered By: Razia Muller on 12-22-2022 RBC Manual cnt (CSF) [#/Vol] 1 /uL [facility] Comment on above: The reference interv al and other method performance specifications have not been established for this body fluid. The test result must be integrated into the clinical context for interpretation. No Panel InformationOrdered By: Razia Muller on 12-22-2022 CSF Appearance Clear Clear [facility] CSF Eosinophils N/A [facility] CSF Lymphocytes 7 [facility] Comment on above: The reference interv al and other method performance specifications have not been established for this body fluid. The test result must be integrated into the clinical context for interpretation. CSF Monocytes N/A [facility] CSF Neutrophils N/A [facility] CSF Tube Number Tube number: 4 [facility] Nucleated cells [#/volume] i n Cerebral spinal fluid by Manual countOrdered By: Razia Muller on 12-22-2022 Nucleated cells Manual cnt (CSF) [#/Vol] 0.001 10*3/uL 0-5 [facility] Total Protein, CSF #2on 09 Total Protein, CSF #2 31 mg/dL Normal 15-45 [facility] Comment on above: Order Comment: Comme nt tube 4 Result Comment: PERF ORMED BY: [place] [address] PATHOLOGIST PIPE FITTER HELPER ALLEN COATES M.D. Performed By: #### C BC, PT, PTT #### [facility] [address] [place] [address] [place] Total Protein, Spinal Fluido n 12-22-2022 Total Protein, Spinal Fluid 34 mg/dL Normal 15-45 [facility] Comment on above: Order Comment: Comme nt tube 1 Result Comment: PERF ORMED BY: [place] [phone] PATHOLOGIST PIPE FITTER HELPER ALLEN COATES M.D. Performed By: #### C BC, PT, PTT #### [facility] [address] [place] [address] Activated partial thrombopla stin time (aPTT) in platelet poor plasma by coagulation aOrdered By: Razia Muller on 12-20-2022 aPTT Coag (PPP) [Time] 32.8 s 25.1-36.5 [facility] Basophils Auto (Bld) [#/Vol] Ordered By: Razia Muller on 12-20-2022 Basophils (Bld) [#/Vol] 0.0 10*3/uL 0.0-0.2 [facility] Basophils/100 WBC Auto (Bld) Ordered By: Razia Muller on 12-20-2022 Basophils/100 WBC (Bld) 0.5 % . [facility] Complete Blood Count Auto Di ffon 12-20-2022 Basophils (Bld) [#/Vol] 0.0 10*3/uL Normal 0.0-0.2 [facility] Comment on above: Result Comment: PERF ORMED BY: [place] [address] PATHOLOGIST PIPE FITTER HELPER ALLEN COATES M.D. Performed By: #### C BC, PT, PTT #### [facility] [address] Basophils/100 WBC (Bld) 0.5 % Normal . [facility] Comment on above: Performed By: #### C BC, PT, PTT #### [facility] [address] Eosinophils (Bld) [#/Vol] 0.2 10*3/uL Normal 0.0-0.45 [facility] Comment on above: Performed By: #### C BC, PT, PTT #### [facility] [address] Eosinophils/100 WBC (Bld) 3.2 % Normal . [facility] Comment on above: Performed By: #### C BC, PT, PTT #### [facility] [address] [place] [address] [place] Erythrocyte distribution width (RBC) [Ratio] 13.9 % Normal 11.9-15.3 [facility] Comment on above: Performed By: #### C BC, PT, PTT #### [facility] [address] Hematocrit (Bld) [Volume fraction] 40.9 % Normal 34.0-46.4 [facility] Comment on above: Performed By: #### C BC, PT, PTT #### [facility] [address] Hemoglobin (Bld) [Mass/Vol] 13.6 g/dL Normal 11.8-15.4 [facility] Comment on above: Performed By: #### C BC, PT, PTT #### [facility] [address] Lymphocytes (Bld) [#/Vol] 2.1 10*3/uL Normal 1.00-4.8 [facility] Comment on above: Performed By: #### C BC, PT, PTT #### [address] Lymphocytes/100 WBC (Bld) 29.1 % Normal . [facility] Comment on above: Performed By: #### C BC, PT, PTT #### [address] MCH (RBC) [Entitic mass] 27.6 pg Normal 24.7-34.3 [facility] Comment on above: Performed By: #### C BC, PT, PTT #### [address] MCV (RBC) [Entitic vol] 83.0 fL Normal 80-100 [facility] Comment on above: Performed By: #### C BC, PT, PTT #### [address] Mean Corpuscular HGB Conc 33.2 g/dL Normal 32.0-35.0 [facility] Comment on above: Performed By: #### C BC, PT, PTT #### [place] [address] [place] Monocytes (Bld) [#/Vol] 0.5 10*3/uL Normal 0.0-0.8 [facility] Comment on above: Performed By: #### C BC, PT, PTT #### [place] [address] [place] Monocytes/100 WBC (Bld) 6.3 % Normal . [facility] Comment on above: Performed By: #### C BC, PT, PTT #### [facility] [address] [place] [address] [place] Neutrophils (Bld) [#/Vol] 4.4 10*3/uL Normal 1.8-7.7 [facility] Comment on above: Performed By: #### C BC, PT, PTT #### [facility] [address] [place] [address] [place] Neutrophils/100 WBC (Bld) 60.9 % Normal . [facility] Comment on above: Performed By: #### C BC, PT, PTT #### [facility] [address] NRBC% 0.1 /100{WBC} Normal 0-0.5 [facility] Comment on above: Performed By: #### C BC, PT, PTT #### [facility] [address] Platelet mean volume (Bld) [Entitic vol] 8.1 fL Normal 6.3-10.7 [facility] Comment on above: Performed By: #### C BC, PT, PTT #### [facility] [address] [place] [address] [place] Platelets (Bld) [#/Vol] 222 10*3/uL Normal 150-450 [facility] Comment on above: Performed By: #### C BC, PT, PTT #### [facility] [address] [place] [address] [place] RBC (Bld) [#/Vol] 4.93 10*6/uL Normal 3.60-5.00 [facility] Comment on above: Performed By: #### C BC, PT, PTT #### [facility] [address] [place] [address] [place] WBC (Bld) [#/Vol] 7.3 10*3/uL Normal 3.8-11.6 [facility] Comment on above: Performed By: #### C BC, PT, PTT #### [facility] [address] [place] [address] [place] Eosinophils Auto (Bld) [#/Vo l]Ordered By: Razia Muller on 12-20-2022 Eosinophils (Bld) [#/Vol] 0.2 10*3/uL 0.0-0.45 [facility] Eosinophils/100 WBC Auto (Bl d)Ordered By: Razia Muller on 12-20-2022 Eosinophils/100 WBC (Bld) 3.2 % . [facility] Erythrocyte distribution wid th Auto (RBC) [Ratio]Ordered By: Razia Muller on 12-20-2022 Erythrocyte distribution width (RBC) [Ratio] 13.9 % 11.9-15.3 [facility] Hematocrit Auto (Bld) [Volum e fraction]Ordered By: Razia Muller on 12-20-2022 Hematocrit (Bld) [Volume fraction] 40.9 % 34.0-46.4 [facility] Hemoglobin [Mass/volume] in BloodOrdered By: Razia Muller on 12-20-2022 Hemoglobin (Bld) [Mass/Vol] 13.6 g/dL 11.8-15.4 [facility] INR in Platelet poor plasma by Coagulation assayOrdered By: Razia Muller on 12-20-2022 INR Coag (PPP) [Relative time] 1.0 {INR} [facility] Comment on above: INR Therapeutic Rang [...] PT Coag (PPP) [Time] 11.1 s 9.0-12.9 [facility] Leukocytes [#/volume] correc burke for nucleated erythrocytes in Blood by Automated counOrdered By: Razia Muller on 12-20-2022 WBC corrected for nucl RBC Auto (Bld) [#/Vol] 7.3 10*3/uL 3.8-11.6 [facility] Lymphocytes Auto (Bld) [#/Vo l]Ordered By: Razia Muller on 12-20-2022 Lymphocytes (Bld) [#/Vol] 2.1 10*3/uL 1.00-4.8 [facility] Lymphocytes/100 WBC Auto (Bl d)Ordered By: Razia Muller on 12-20-2022 Lymphocytes/100 WBC (Bld) 29.1 % . [facility] MCH Auto (RBC) [Entitic mass ]Ordered By: Razia Muller on 12-20-2022 MCH (RBC) [Entitic mass] 27.6 pg 24.7-34.3 [facility] MCHC Auto (RBC) [Mass/Vol]Or dered By: Razia Muller on 12-20-2022 MCHC (RBC) [Mass/Vol] 33.2 g/dL 32.0-35.0 [facility] MCV Auto (RBC) [Entitic vol] Ordered By: Razia Muller on 12-20-2022 MCV (RBC) [Entitic vol] 83.0 fL 80-100 [facility] Monocytes Auto (Bld) [#/Vol] Ordered By: Razia Muller on 12-20-2022 Monocytes (Bld) [#/Vol] 0.5 10*3/uL 0.0-0.8 [facility] Monocytes/100 WBC Auto (Bld) Ordered By: Razia Muller on 12-20-2022 Monocytes/100 WBC (Bld) 6.3 % . [facility] Neutrophils Auto (Bld) [#/Vo l]Ordered By: Razia Muller on 12-20-2022 Neutrophils (Bld) [#/Vol] 4.4 10*3/uL 1.8-7.7 [facility] Neutrophils/100 WBC Auto (Bl d)Ordered By: Razia Muller on 12-20-2022 Neutrophils/100 WBC (Bld) 60.9 % . [facility] Nucleated erythrocytes [Pres ence] in Blood by Automated countOrdered By: Razia Muller on 12-20-2022 Nucleated RBC Auto Ql (Bld) 0.1 /100{WBC} 0-0.5 [facility] Partial Thromboplastin Timeo n 12-20-2022 aPTT Coag (Bld) [Time] 32.8 s Normal 25.1-36.5 [facility] Comment on above: Result Comment: PERF ORMED BY: [place] [address] PATHOLOGIST PIPE FITTER HELPER ALLEN COATES M.D. Performed By: #### C BC, PT, PTT #### [facility] [address] Platelet mean volume Auto (B ld) [Entitic vol]Ordered By: Razia Muller on 12-20-2022 Platelet mean volume (Bld) [Entitic vol] 8.1 fL 6.3-10.7 [facility] Platelets Auto (Bld) [#/Vol] Ordered By: Razia Muller on 12-20-2022 Platelets (Bld) [#/Vol] 222 10*3/uL 150-450 [facility] Prothrombin Time INRon 12-20 INR Coag (PPP) [Relative time] 1.0 {INR} Normal [facility] Comment on above: Result Comment: INR [...] By: #### C BC, PT, PTT #### [facility] [address] [place] [address] PT Coag (PPP) [Time] 11.1 s Normal 9.0-12.9 [facility] Comment on above: Performed By: #### C BC, PT, PTT #### [facility] [address] RBC Auto (Bld) [#/Vol]Ordere d By: Razia Muller on 12-20-2022 RBC (Bld) [#/Vol] 4.93 10*6/uL 3.60-5.00 [facility] WBC Auto (Bld) [#/Vol]Ordere d By: Razia Muller on 12-20-2022 WBC (Bld) [#/Vol] 7.3 10*3/uL 3.8-11.6 [facility] POC Glucose Fingerstickon Glucose [Mass/Vol] 85 mg/dL 65 - 105 mg/dL [facility] C.trachomatis N.gonorrhoeae DNA, Urineon 07-21-2022 Chlamydia sp DNA SARANYA+probe Ql (U) Negative NEGATIVE [facility] Comment on above: CHLAMYDIA TRACHOMATI S DNA [...] gonorrhoeae DNA SARANYA+probe Ql (U) Negative NEGATIVE [facility] Comment on above: NEISSERIA GONORRHOEA E DNA [...] alternative nucleic acid target. Specimen Description .URINE [facility] CBC auto differentialon 06-23 Absolute Eos # [facility] Absolute Immature Granulocyte 0.12 [facility] Absolute Lymph # 1.21 [facility] Absolute [place] # 0.69 [facility] Basophils (Bld) [#/Vol] 0.03 10*3/uL [facility] Basophils/100 WBC (Bld) 0 % 0 - 2 % [facility] Eosinophils/100 WBC (Bld) 0 % Low 1 - 4 % [facility] Hematocrit (Bld) [Volume fraction] 33.5 % Low 36.3 - 47.1 % [facility] Hemoglobin (Bld) [Mass/Vol] 10.8 g/dL Low 11.9 - 15.1 g/dL [facility] Immature granulocytes/100 WBC (Bld) 1 % High 0 [facility] Interpretation and review of laboratory results Abnormal [facility] Lymphocytes/100 WBC (Bld) 8 % Low 24 - 43 % [facility] MCH (RBC) [Entitic mass] 28.4 pg 25.2 - 33.5 pg [facility] MCHC (RBC) [Mass/Vol] 32.2 g/dL 28.4 - 34.8 g/dL [facility] MCV (RBC) [Entitic vol] 88.2 fL 82.6 - 102.9 fL [facility] Monocytes/100 WBC (Bld) 4 % 3 - 12 % [facility] NRBC Automated 0.0 0.0 per 100 WBC [facility] Platelet distribution width (Bld) [Ratio] 13.2 % 11.8 - 14.4 % [facility] Platelet mean volume (Bld) [Entitic vol] 10.5 fL 8.1 - 13.5 fL [facility] Platelets (Bld) [#/Vol] 197 10*3/uL [facility] RBC (Bld) [#/Vol] 3.80 10*6/uL Low 3.95 - 5.1 1 m/uL [facility] Segmented neutrophils/100 WBC (Bld) 87 % High 36 - 65 % [facility] Segs Absolute 13.58 High [facility] WBC (Bld) [#/Vol] 15.6 10*3/uL High [facility] Culture, Urineon 07-21-2022 Microorganism identified Cx Nom (Unsp spec) NO SIGNIFICANT GROWTH [facility] Specimen Description .CLEAN CATCH URINE [facility] POC Glucose Fingerstickon Glucose [Mass/Vol] 108 mg/dL High 65 - 105 mg/dL [facility] Interpretation and review of laboratory results Abnormal [facility] Glucose [Mass/Vol] 95 mg/dL 65 - 105 mg/dL [facility] Glucose [Mass/Vol] 123 mg/dL High 65 - 105 mg/dL [facility] Interpretation and review of laboratory results Abnormal [facility] CBCon 07-20-2022 Hematocrit (Bld) [Volume fraction] 32.8 % Low 36.3 - 47.1 % [facility] Hemoglobin (Bld) [Mass/Vol] 11.0 g/dL Low 11.9 - 15.1 g/dL [facility] Interpretation and review of laboratory results Abnormal [facility] MCH (RBC) [Entitic mass] 28.6 pg 25.2 - 33.5 pg [facility] MCHC (RBC) [Mass/Vol] 33.5 g/dL 28.4 - 34.8 g/dL [facility] MCV (RBC) [Entitic vol] 85.4 fL 82.6 - 102.9 fL [facility] NRBC Automated 0.0 0.0 per 100 WBC [facility] Platelet distribution width (Bld) [Ratio] 13.2 % 11.8 - 14.4 % [facility] Platelet mean volume (Bld) [Entitic vol] 10.8 fL 8.1 - 13.5 fL [facility] Platelets (Bld) [#/Vol] 200 10*3/uL [facility] RBC (Bld) [#/Vol] 3.84 10*6/uL Low 3.95 - 5.1 1 m/uL [facility] WBC (Bld) [#/Vol] 10.2 10*3/uL [facility] Comprehensive Metabolic Pane mary 07-20-2022 Albumin [Mass/Vol] 3.3 g/dL Low 3.5 - 5.2 g/dL [facility] Albumin/Globulin [Mass ratio] 1.0 {ratio} 1.0 - 2.5 [facility] ALP [Catalytic activity/Vol] 142 U/L High 35 - 104 U/L [facility] ALT [Catalytic activity/Vol] 15 U/L 5 - 33 U/L [facility] Anion gap [Moles/Vol] 12 mmol/L 9 - 17 mmol/L [facility] AST [Catalytic activity/Vol] 15 U/L NINF - 32 U/L [facility] Bilirubin [Mass/Vol] mg/dL Low 0.3 - 1 .2 mg/dL [facility] Calcium [Mass/Vol] 9.0 mg/dL 8.6 - 10. 4 mg/dL [facility] Chloride [Moles/Vol] 104 mmol/L 98 - 10 7 mmol/L [facility] CO2 [Moles/Vol] 21 mmol/L 20 - 31 mmol/L [facility] Creatinine [Mass/Vol] 0.41 mg/dL Low 0.50 - 0.90 mg/dL [facility] GFR/1.73 sq M.predicted MDRD (S/P/Bld) [Vol rate/Area] - PINF [facility] Comment on above: These results are not [...] 135 mg/dL High 70 - 99 mg/dL [facility] Interpretation and review of laboratory results Abnormal [facility] Potassium [Moles/Vol] 3.8 mmol/L 3.7 - 5.3 mmol/L [facility] Protein [Mass/Vol] 6.5 g/dL 6.4 - 8.3 g/dL [facility] Sodium [Moles/Vol] 137 mmol/L 135 - 144 mmol/L [facility] Urea nitrogen [Mass/Vol] 8 mg/dL 6 - 20 mg/dL [facility] DRUG SCREEN MULTI URINEon Amphetamine Screen, Ur Negative NEGATIVE [facility] Comment on above: (Positive cutoff 1000 ng/mL) Barbiturate Screen, Ur Negative NEGATIVE [facility] Comment on above: (Positive cutoff 200 ng/mL) Benzodiazepine Screen, Urine Negative NEGATIVE [facility] Comment on above: (Positive cutoff 200 ng/mL) Cannabinoid Scrn, Ur Negative NEGATIVE [facility] Comment on above: (Positive cutoff 50 ng/mL) Cocaine Metabolite, Urine Negative NEGATIVE [facility] Comment on above: (Positive cutoff 300 ng/mL) Fentanyl, Ur Negative NEGATIVE [facility] Comment on above: (Positive cutoff 5 ng/ml) Methadone Screen, Urine Negative NEGATIVE [facility] Comment on above: (Positive cutoff 300 ng/mL) Opiates, Urine Negative NEGATIVE [facility] Comment on above: (Positive cutoff 300 ng/mL) Oxycodone Screen, Ur Negative NEGATIVE [facility] Comment on above: (Positive cutoff 100 ng/mL) Phencyclidine, Urine Negative NEGATIVE [facility] Comment on above: (Positive cutoff 25 ng/mL) Test Information Assay provides medic al screening only. The absence of expected drug(s) and/or metabolite(s) may indicate diluted or adulterated urine, limitations of testing or timing of collection. [facility] Comment on above: Testing for legal pu rposes should be confirmed by another method. To request confirmation of test result, please call the lab within 7 days of sample submission. [facility] GROUP B STREP CULTUREon 06-23 S. agalactiae Ag Ql (Unsp spec) Culture Observations: NEGATIVE FOR GROUP B STREPTOCOCCUS. Normal [facility] Comment on above: Performed By: #### [id number] #### [facility] [address] [place] [address] Dr. Valeria Farris POC Glucose Fingerstickon Glucose [Mass/Vol] 116 mg/dL High 65 - 105 mg/dL [facility] Interpretation and review of laboratory results Abnormal [facility] Protein / creatinine ratio, urineon 07-20-2022 Creatinine, Ur 95.9 mg/dL 28.0 - 217.0 mg/dL [facility] Protein (U) [Mass/Vol] 17 mg/dL [facility] Comment on above: No normal range esta blished. Urine Total Protein Creatinine Ratio 0.18 0.00 - 0.20 [facility] T. pallidum Abon 07-20-2022 T. pallidum Ab IA Ql (S) Non-Reactive NONREACTIVE [facility] Comment on above: T. pallidum antibodies are not detected. There is no serological evidence of infection with T. pallidum (early primary syphilis cannot be excluded). Retest in 2-4 weeks if syphilis is clinically suspect. [facility] TYPE AND SCREENon 07-20-2022 ABO/Rh Positive [facility] Arm Band Number BE [id number] [facility] Expiration Date 07/23/2022,2359 [facility] US CHINYERE DOP LEG LTon 07-20-19 [...] by: GERARD GONZALEZ Date: 2022-07-19 15:06 Normal [facility] COVID + FLU Quick Testingon 07-18-2022 SARS-CoV-2 (COVID-19) RNA SARANYA+probe Ql (Unsp spec) Negative [email or web address] Other COVID + FLU Quick Testing Negative [email or web address] Other Quick Strepon 07-18-2022 S. pyogenes Org specific cx Ql (Throat) Negative [email or web address] Other Quick Strep [email or web address] Other US PREG BIOPHY W NON STRESSo [...] by: GERARD GONZALEZ Date: 2022-07-17 15:56 Normal [facility] Brain Natriuretic Peptideon 07-15-2022 Natriuretic peptide B (Bld) [Mass/Vol] pg/mL NINF - 300 pg/mL [facility] Comment on above: An age-independent cutoff point of 300 pg/ml has a 98% negative predictive value excluding acute heart failure. [facility] Comprehensive metabolic pane mary 07-15-2022 Albumin [Mass/Vol] 3.4 g/dL Low 3.5 - 5.2 g/dL [facility] Albumin/Globulin [Mass ratio] 1.0 {ratio} 1.0 - 2.5 [facility] ALP [Catalytic activity/Vol] 138 U/L High 35 - 104 U/L [facility] ALT [Catalytic activity/Vol] 16 U/L 5 - 33 U/L [facility] Anion gap [Moles/Vol] 12 mmol/L 9 - 17 mmol/L [facility] AST [Catalytic activity/Vol] 23 U/L NINF - 32 U/L [facility] Bilirubin [Mass/Vol] mg/dL Low 0.3 - 1 .2 mg/dL [facility] Calcium [Mass/Vol] 8.9 mg/dL 8.6 - 10. 4 mg/dL [facility] Chloride [Moles/Vol] 102 mmol/L 98 - 10 7 mmol/L [facility] CO2 [Moles/Vol] 19 mmol/L Low 20 - 31 mmol/L [facility] Creatinine [Mass/Vol] 0.38 mg/dL Low 0.50 - 0.90 mg/dL [facility] GFR/1.73 sq M.predicted MDRD (S/P/Bld) [Vol rate/Area] - PINF [facility] Comment on above: These results are not [...] 131 mg/dL High 70 - 99 mg/dL [facility] Interpretation and review of laboratory results Abnormal [facility] Potassium [Moles/Vol] 3.5 mmol/L Low 3.7 - 5.3 mmol/L [facility] Protein [Mass/Vol] 6.7 g/dL 6.4 - 8.3 g/dL [facility] Sodium [Moles/Vol] 133 mmol/L Low 135 - 144 mmol/L [facility] Urea nitrogen [Mass/Vol] 9 mg/dL 6 - 20 mg/dL [facility] HIV Screenon 07-15-2022 HIV 1+2 Ab+HIV1 p24 Ag IA Ql Non-Reactive NONREACTIVE [facility] Comment on above: No laboratory eviden ce of HIV infection. If acute HIV infection is suspected, consider testing for HIV-1 RNA. [facility] Protein / Creatinine Ratio, Urineon 07-15-2022 Creatinine, Ur 33.5 mg/dL 28.0 - 217.0 mg/dL [facility] Protein (U) [Mass/Vol] 5 mg/dL [facility] Comment on above: No normal range esta blished. Urine Total Protein Creatinine Ratio 0.15 0.00 - 0.20 [facility] TYPE AND SCREENon 07-15-2022 ABO/Rh Positive [facility] Arm Band Number BE [id number] [facility] Expiration Date 07/18/2022,2351 [facility] Troponinon 07-15-2022 Troponin I.cardiac DL <= 0.01 ng/mL [Mass/Vol] ng/L 0 - 14 ng/L [facility] Comment on above: High Sensitivity Tro ponin values cannot be compared with other Troponin methodologies. [facility] XR CHEST (SINGLE VIEW FRONTA L)on 07-15-2022 No acute process. [facility] RIS CONSOLIDATED EXAMINATION: ONE XRAY VIEW OF THE CHEST 07/15/2022 4:26 pm COMPARISON: None. HISTORY: ORDERING SYSTEM PROVIDED HISTORY: shortness of breath TECHNOLOGIST PROVIDED HISTORY: Concerns for COVID shortness of breath FINDINGS: The lungs are without acute focal process. There is no effusion or pneumothorax. The cardiomediastinal silhouette is without acute process. The osseous structures are without acute process. [facility] Abner English MD - 07/15/2022 EXAMINATION: ONE XRAY VIEW [...] without acute process. IMPRESSION: No acute process. [employer] Phone: Radiology Study observation (narrative) [employer] Phone: XR CHEST (SINGLE VIEW FRONTA L)Ordered By: Abner Dela Cruz on 07-15-2022 [employer] Phone: US PREG BIOPHY W NON STRESSo [...] by: GERARD GONZALEZ Date: 2022-07-10 15:41 Normal [facility] US PREG BIOPHY W NON [...] GERARD GONZALEZ Date: 2022-07-04 16:21 Normal [facility] UA (CLEAN/CATCH) MEAT STOCK CLERK/MICRO I F IND.on 06-30-2022 Bilirubin Ql (U) Negative Normal NEGATIVE [facility] Comment on above: Performed By: #### [id number] #### [facility] [address] [place] [address] Dr. Valeria Farris Clarity (U) CLEAR Normal CLEAR [facility] Comment on above: Performed By: #### [id number] #### [facility] [address] [place] [address] Dr. Valeria Farris Color (U) LT. YELLOW Normal YELLOW [facility] Comment on above: Performed By: #### [id number] #### [facility] [address] [place] [address] Dr. Valeria Farris Glucose Ql (U) Negative Normal NEGATIVE [facility] Comment on above: Performed By: #### [id number] #### [facility] [address] [place] [address] Dr. Valeria Farris Hemoglobin Ql (U) LARGE Abnormal NEGATIVE [facility] Comment on above: Performed By: #### [id number] #### [facility] [address] [place] [address] Dr. Valeria Farris Ketones Ql (U) Negative Normal NEGATIVE [facility] Comment on above: Performed By: #### [id number] #### [facility] [address] [place] [address] Dr. Valeria Farris LEUKOCYTES Negative Normal NEGATIVE [facility] Comment on above: Performed By: #### [id number] #### [facility] [address] [place] [address] Dr. Valeria Farris Nitrite Ql (U) Negative Normal NEGATIVE [facility] Comment on above: Performed By: #### [id number] #### [facility] [address] [place] [address] Dr. Valeria Farris pH (U) 6.5 [pH] Normal 5-9 [facility] Comment on above: Performed By: #### [id number] #### [facility] [address] [place] [address] Dr. Valeria Farris SPEC GRAVITY <=1.005 Abnormal 1.005-<=1.02 5 [facility] Comment on above: Performed By: #### [id number] #### [facility] [address] [place] [address] Dr. Valeria Farris UA PROTEIN Negative Normal NEGATIVE/ TRACE [facility] Comment on above: Performed By: #### [id number] #### [facility] [address] [place] [address] Dr. Valeria Farris UR MICRO IND INDICATED Normal [facility] Comment on above: Performed By: #### [id number] #### [facility] [address] [place] [address] Dr. Valeria Farris Urobilinogen Qn (U) 0.2 {Manolo'U}/dL Normal 0.2 - 1. 0 [facility] Comment on above: Performed By: #### [id number] #### [facility] [address] [place] [address] Dr. Valeria Farris URINE MICROSCOPIC ONLYon BACTERIA NONE SEEN Normal NONE SEEN [facility] Comment on above: Performed By: #### [id number] #### [facility] [address] [place] [address] Dr. Valeria Farris Bacteria identified Cx Nom (U) NOT INDICATED Normal [facility] Comment on above: Performed By: #### [id number] #### [facility] [address] [place] [address] Dr. Valeria Farris CAST NONE SEEN Normal NONE SEEN [facility] Comment on above: Performed By: #### [id number] #### [facility] [address] [place] [address] Dr. Valeria Farris Crystals LM Nom (Urine sed) NONE SEEN Normal NONE SEEN [facility] Comment on above: Performed By: #### [id number] #### [facility] [address] [place] [address] Dr. Valeria Farris Epithelial cells LM Ql (Urine sed) FEW Abnormal NONE SEEN /RARE [facility] Comment on above: Performed By: #### [id number] #### [facility] [address] [place] [address] Dr. Valeria Farris MUCOUS NONE SEEN Normal NONE SEEN [facility] Comment on above: Performed By: #### [id number] #### [facility] [address] [place] [address] Dr. Valeria Farris RBC 5-10 Abnormal 0-2 [facility] Comment on above: Performed By: #### [id number] #### [facility] [address] [place] [address] Dr. Valeria Farris WBC 0-2 Abnormal NONE SEEN [facility] Comment on above: Performed By: #### [id number] #### [facility] [address] [place] [address] Dr. Valeria Farris No Panel Informationon 06-29 [facility] T4, Freeon 06-29-2022 Free T4 [Mass/Vol] 0.82 ng/dL Low 0.93 - 1. 70 ng/dL [facility] Interpretation and review of laboratory results Abnormal [facility] TSHon 06-29-2022 TSH Qn 2.16 m[IU]/L [facility] US PREG BIOPHY W NON STRESSo n [...] ALINE GALICIA Date: 2022-06-26 07:50 Normal [facility] US PREG BIOPHY W NON [...] GERARD GONZALEZ Date: 2022-06-19 15:28 Normal [facility] CREATININE CLEARon 3 BODY SURF AREA 2.35 Normal [facility] Comment on above: Performed By: #### U ALEX LANDEROSRO #### [facility] [address] [place] [address] Dr. Valeria GONZALEZA CLEARANCE 128.94 ml/min Critically high 75.00-115.00 [facility] Comment on above: Performed By: #### ZAID SUNICRO #### [facility] [address] [place] [address] Dr. Valeria MAST, 24 HR UR 882.73 mg/24 hr Normal 800.00-1,8 00 .00 [facility] Comment on above: Performed By: #### U ZAID LANDEROSICRO #### [facility] [address] [place] [address] Dr. Valeria Farris Creatinine [Mass/Vol] 0.35 mg/dL Critically low 0.55-1.02 [facility] Comment on above: Performed By: #### U ZAID LANDEROSICRO #### [facility] [address] [place] [address] Dr. Valeria Farris URINE CREAT 21.53 mg/dL Normal 20.00-300.00 [facility] Comment on above: Performed By: #### U LETI UMICRO #### [facility] [address] [place] [address] Dr. Valeria Farris PROTEIN 24HR URINEon 023 T PROT, 24 HR UR 241.9 mg/24 hr Critically high <=149.1 [facility] Comment on above: Performed By: #### P [id number] #### [facility] [address] [place] [address] Dr. Valeria Farris UR PROT 5.9 mg/dL Normal <=11.9 [facility] Comment on above: Performed By: #### P [id number] #### [facility] [address] [place] [address] Dr. Valeria Farris UR TOT VOL 4100 ml/24 HR Normal [facility] Comment on above: Performed By: #### P [id number] #### [facility] [address] [place] [address] Dr. Valeria Farris Performed By: #### U ACSIND, UMICRO #### [facility] [address] [place] [address] Dr. Valeria Farris CBC AUTO DIFFon 06-17-2022 BASO # 0.0 103/ul Normal 0.0-0.1 [facility] Comment on above: Performed By: #### G LU1HR #### [facility] [address] [place] [address] Dr. Valeria Farris Basophils/100 WBC (Bld) 0.4 % Normal 0.2-2.0 [facility] Comment on above: Performed By: #### G LU1HR #### [facility] [address] [place] [address] Dr. Valeria Farris EO # 0.2 103/ul Normal 0.0-0.7 [facility] Comment on above: Performed By: #### G LU1HR #### [facility] [address] [place] [address] Dr. Valeria Farris Eosinophils/100 WBC (Bld) 2.0 % Normal 0.9-7.0 [facility] Comment on above: Performed By: #### G LU1HR #### [facility] [address] [place] [address] Dr. Valeria Farris Erythrocyte distribution width (RBC) [Ratio] 13.3 % Normal 11.0-15.0 [facility] Comment on above: Performed By: #### G LU1HR #### [facility] [address] [place] [address] Dr. Valeria Farris Hematocrit (Bld) [Volume fraction] 31.8 % Critically low 36.0-48.0 [facility] Comment on above: Performed By: #### G LU1HR #### [facility] [address] [place] [address] Dr. Valeria Farris Hemoglobin (Bld) [Mass/Vol] 10.8 g/dL Critically low 12.0-16.0 [facility] Comment on above: Performed By: #### G LU1HR #### [facility] [address] [place] [address] Dr. Valeria Farris IG # 0.09 10e3/ul Critically high 0.00-0.03 [facility] Comment on above: Performed By: #### G LU1HR #### [facility] [address] [place] [address] Dr. Valeria Farris IG % 0.8 % Critically high 0.0-0.5 [facility] Comment on above: Performed By: #### G LU1HR #### [facility] [address] [place] [address] Dr. Valeria Farris LYMPH # 2.2 103/ul Normal 1.2-3.8 [facility] Comment on above: Performed By: #### G LU1HR #### [facility] [address] [place] [address] Dr. Valeria Farris Lymphocytes/100 WBC (Bld) 20.0 % Critically low 20.5-60.0 [facility] Comment on above: Performed By: #### G LU1HR #### [facility] [address] [place] [address] Dr. Valeria Farris MANUAL DIFF REQ NO Normal [facility] Comment on above: Performed By: #### G LU1HR #### [facility] [address] [place] [address] Dr. Valeria Farris MCH (RBC) [Entitic mass] 28.4 pg Normal 26.7-34.0 [facility] Comment on above: Performed By: #### G LU1HR #### [facility] [address] [place] [address] Dr. Valeria Farris MCHC (RBC) [Mass/Vol] 34.0 g/dL Normal 29.9-35.2 [facility] Comment on above: Performed By: #### G LU1HR #### [facility] [address] [place] [address] Dr. Valeria Farris MCV (RBC) [Entitic vol] 83.7 fL Normal 81.0-99.0 [facility] Comment on above: Performed By: #### G LU1HR #### [facility] [address] [place] [address] Dr. Valeria Farris MONO # 0.9 103/ul Critically high 0.3-0.8 [facility] Comment on above: Performed By: #### G LU1HR #### [facility] [address] [place] [address] Dr. Valeria Farris Monocytes/100 WBC (Bld) 7.9 % Normal 1.7-12.0 [facility] Comment on above: Performed By: #### G LU1HR #### [facility] [address] [place] [address] Dr. Valeria Farris NEUT # 7.7 103/ul Critically high 1.4-6.5 [facility] Comment on above: Performed By: #### G LU1HR #### [facility] [address] [place] [address] Dr. Valeria Farris Neutrophils/100 WBC (Bld) 68.9 % Normal 43.0-75.0 [facility] Comment on above: Performed By: #### G LU1HR #### [facility] [address] [place] [address] Dr. Valeria Farris Platelet mean volume (Bld) [Entitic vol] 10.7 fL Normal 9.5-13.5 [facility] Comment on above: Performed By: #### G LU1HR #### [facility] [address] [address] [address] Valeria Farris PLT 195 103/ul Normal 150-450 [facility] Comment on above: Performed By: #### G LU1HR #### [facility] [address] [address] [address] Valeria Farris RBC 3.80 106/ul Critically low 4.20-5.40 [facility] Comment on above: Performed By: #### G LU1HR #### [facility] [address] [place] [address] Dr. Valeria Farris WBC 11.2 103/ul Critically high 4.0-11.0 [facility] Comment on above: Performed By: #### G LU1HR #### [facility] [address] [place] [address] Dr. Valeria Farirs LDHon 06-17-2022 LDH 230 U/L Normal 81-234 [facility] Comment on above: Performed By: #### P [id number] #### [facility] [address] [place] [address] Dr. Valeria Farris PROF 14(COMP METB)on 023 Albumin [Mass/Vol] 2.6 g/dL Critically low 3.4-5.0 [facility] Comment on above: Performed By: #### P [id number] #### [facility] [address] [place] [address] Dr. Valeria Farris Albumin/Globulin [Mass ratio] 0.6 {ratio} Normal [facility] Comment on above: Performed By: #### P ROT24U #### [facility] [address] [place] [address] Dr. Valeria Farris ALP [Catalytic activity/Vol] 112 U/L Normal 46-116 [facility] Comment on above: Performed By: #### P [id number] #### [facility] [address] [place] [address] Dr. Valeria Farris ALT [Catalytic activity/Vol] 18 U/L Normal 14-59 [facility] Comment on above: Performed By: #### P [id number] #### [facility] [address] [address] [address] Valeria Farris Anion gap [Moles/Vol] 13.1 mmol/L Normal [facility] Comment on above: Performed By: #### P ROT24U #### [facility] [address] [address] [address] Valeria Farris AST [Catalytic activity/Vol] 22 U/L Normal 15-37 [facility] Comment on above: Performed By: #### P [id number] #### [facility] [address] [place] [address] Dr. Valeria Farris Bilirubin [Mass/Vol] 0.2 mg/dL Normal 0.2-1.0 [facility] Comment on above: Performed By: #### P ROT24U #### [facility] [address] [place] [address] Dr. Valeria Farris Calcium [Mass/Vol] 9.1 mg/dL Normal 8.5-10.1 [facility] Comment on above: Performed By: #### P ROT24U #### [facility] [address] [place] [address] Dr. Valeria Farris Chloride [Moles/Vol] 103 mmol/L Normal 98-107 [facility] Comment on above: Performed By: #### P ROT24U #### [facility] [address] [place] [address] Dr. Valeria Farris CO2 [Moles/Vol] 25.8 mmol/L Normal 21.0-32.0 [facility] Comment on above: Performed By: #### P ROT24U #### [facility] [address] [place] [address] Dr. Valeria Farris Creatinine [Mass/Vol] 0.35 mg/dL Critically low 0.55-1.02 [facility] Comment on above: Performed By: #### P ROT24U #### [facility] [address] [place] [address] Dr. Valeria Farris EGFR-AF GREEK >60 Normal >=60 [facility] Comment on above: Performed By: #### P ROT24U #### [facility] [address] [address] [address] Valeria Farris EGFR-NON AF GREEK >60 Normal >=60 [facility] Comment on above: Performed By: #### P ROT24U #### [facility] [address] [address] [address] Valeria Farris Globulin (S) [Mass/Vol] 4.2 g/dL Normal [facility] Comment on above: Performed By: #### P ROT24U #### [facility] [address] [address] [address] Valeria Farris Glucose [Mass/Vol] 80 mg/dL Normal 74-106 [facility] Comment on above: Performed By: #### P ROT24U #### [facility] [address] [place] [address] Dr. Valeria Farris Potassium [Moles/Vol] 3.9 mmol/L Normal 3.5-5.1 [facility] Comment on above: Performed By: #### P ROT24U #### [facility] [address] [address] [address] Valeria Farris Protein [Mass/Vol] 6.8 g/dL Normal 6.4-8.2 [facility] Comment on above: Performed By: #### P ROT24U #### [facility] [address] [place] [address] Dr. Valeria Farris Sodium [Moles/Vol] 138 mmol/L Normal 136-145 [facility] Comment on above: Performed By: #### P ROT24U #### [facility] [address] [address] [address] Valeria Farris Urea nitrogen [Mass/Vol] 10.0 mg/dL Normal 7.0-18.0 [facility] Comment on above: Performed By: #### P ROT24U #### [facility] [address] [place] [address] Dr. Valeria Farris Urea nitrogen/Creatinine [Mass ratio] 28.6 mg/mg Normal [facility] Comment on above: Performed By: #### P ROT24U #### [facility] [address] [place] [address] Dr. Valeria Farris PTTon 06-17-2022 aPTT Coag (Bld) [Time] 26.4 s Normal 22.3-36.2 [facility] Comment on above: Performed By: #### P REGQNT #### [facility] [address] [place] [address] Dr. Valeria Farris UA (CLEAN/CATCH) MEAT STOCK CLERK/MICRO I F IND.on 06-17-2022 Bilirubin Ql (U) Negative Normal NEGATIVE [facility] Comment on above: Performed By: #### P REGQNT #### [facility] [address] [place] [address] Dr. Valeria Farris Clarity (U) CLEAR Normal CLEAR [facility] Comment on above: Performed By: #### P REGQNT #### [facility] [address] [place] [address] Dr. Valeria Farris Color (U) LT. YELLOW Normal YELLOW [facility] Comment on above: Performed By: #### P REGQNT #### [facility] [address] [place] [address] Dr. Valeria Farris Glucose Ql (U) Negative Normal NEGATIVE [facility] Comment on above: Performed By: #### P REGQNT #### [facility] [address] [place] [address] Dr. Valeria Farris Hemoglobin Ql (U) Negative Normal NEGATIVE [facility] Comment on above: Performed By: #### P REGQNT #### [facility] [address] [place] [address] Dr. Valeria Farris Ketones Ql (U) Negative Normal NEGATIVE [facility] Comment on above: Performed By: #### P REGQNT #### [facility] [address] [place] [address] Dr. Valeria Farris LEUKOCYTES Negative Normal NEGATIVE [facility] Comment on above: Performed By: #### P REGQNT #### [facility] [address] [place] [address] Dr. Valeria Farris Nitrite Ql (U) Negative Normal NEGATIVE [facility] Comment on above: Performed By: #### P REGQNT #### [facility] [address] [address] [address] Valeria Farris pH (U) 6.5 [pH] Normal 5-9 [facility] Comment on above: Performed By: #### P REGQNT #### [facility] [address] [address] [address] Valeria Farris SPEC GRAVITY 1.010 Normal 1.005-<=1.[address] [place] [address] Comment on above: Performed By: #### P REGQNT #### [facility] [address] [place] [address] Dr. Valeria Farris UA PROTEIN Negative Normal NEGATIVE/ TRACE [facility] Comment on above: Performed By: #### P REGQNT #### [facility] [address] [place] [address] Dr. Valeria Farris UR MICRO IND NOT INDICATED Normal [facility] Comment on above: Performed By: #### P REGQNT #### [facility] [address] [place] [address] Dr. Valeria Farris Urobilinogen Qn (U) 0.2 {Manolo'U}/dL Normal 0.2 - 1. 0 [facility] Comment on above: Performed By: #### P REGQNT #### [facility] [address] [place] [address] Dr. Valeria Farris URIC ACID SERUMon 06-17-2022 Urate [Mass/Vol] 3.3 mg/dL Normal 2.6-6.0 [facility] Comment on above: Performed By: #### P [id number] #### [facility] [address] [place] [address] Dr. Valeria Farris PAP ACOG PANEL 2: 30 to 65on 05-29-2022 . . Normal [facility] Comment on above: Result Comment: Perf ormed at: WB Performed By: #### [id number] #### [facility] [address] [place] [address] Dr. Valeria Farris Age Gdln ACOG Testing 30-65 Normal [facility] Comment on above: Performed By: #### [id number] #### [facility] [address] [address] [address] Valeria Farris DIAGNOSIS: Comment Normal [facility] Comment on above: Result Comment: NEGA TIVE FOR INTRAEPITHELIAL LESION OR MALIGNANCY. Performed at: WB Performed By: #### [id number] #### [facility] [address] [address] [address] Valeria Farris HPV Aptima Negative Normal Negative [facility] Comment on above: Result Comment: This nucleic acid amplification test detects fourteen high-risk HPV types (16,18,31,33,35,39,45,51,52,56,58,59,66,68) without differentiation. Performed at: =G Performed By: #### [id number] #### [facility] [address] [place] [address] Dr. Valeria Farris HPV Genotype Reflex Comment Normal [facility] Comment on above: Result Comment: Crit eria not met, HPV Genotype not performed. Performed at: WB Performed By: #### [id number] #### [facility] [address] [place] [address] Dr. Valeria Farris Methodology: Comment Normal [facility] Comment on above: Result Comment: This liquid based ThinPrep(R) pap test was screened with the use of an image guided system. Performed at: WB Performed By: #### [id number] #### [facility] [address] [place] [address] Dr. Valeria Farris Note: Comment Normal [facility] Comment on above: Result Comment: The Pap smear is a screening test designed to aid in the detection of premalignant and malignant conditions of the uterine cervix. It is not a diagnostic procedure and should not be used as the sole means of detecting cervical cancer. Both false-positive and false-negative reports do occur. . Performed at: WB Performed By: #### [id number] #### [facility] [address] [place] [address] Dr. Valeria Farris Performed by: Comment Normal [facility] Comment on above: Result Comment: Jaye Simmons, Sales Representative [employer] ([employer]) Performed at: WB Performed By: #### [id number] #### [facility] [address] [address] [address] Valeria Farris Specimen adequacy: Comment Normal [facility] Comment on above: Result Comment: Sati sfactory for evaluation. Performed at: WB Performed By: #### [id number] #### [facility] [address] [place] [address] Dr. Valeria Farris POINT OF CARE GLUCOSEon -0 Glucose [Mass/Vol] 122 mg/dL Critically high 74-106 [facility] Comment on above: Performed By: #### U ACSTRUPTI UMICRO #### [facility] [address] [place] [address] Dr. Valeria Farris UA (CLEAN/CATCH) MEAT STOCK CLERK/MICRO I F IND.on 05-29-2022 Bilirubin Ql (U) Negative Normal NEGATIVE [facility] Comment on above: Performed By: #### U ACSTRUPTI UMICRO #### [facility] [address] [place] [address] Dr. Valeria Farris Clarity (U) CLEAR Normal CLEAR [facility] Comment on above: Performed By: #### U ACSTRUPTI, UMICRO #### [facility] [address] [place] [address] Dr. Valeria Farris Color (U) LT. YELLOW Normal YELLOW [facility] Comment on above: Performed By: #### U ACSTRUPTI, UMICRO #### [facility] [address] [place] [address] Dr. Valeria Farris Glucose Ql (U) Negative Normal NEGATIVE [facility] Comment on above: Performed By: #### U ACSTRUPTI, UMICRO #### [facility] [address] [place] [address] Dr. Valeria Farris Hemoglobin Ql (U) TRACE-INTACT Abnormal NEGATIVE [facility] Comment on above: Performed By: #### U ACSIND, UMICRO #### [facility] [address] [place] [address] Dr. Valeria Farris Ketones Ql (U) Negative Normal NEGATIVE [facility] Comment on above: Performed By: #### U ACSIND, UMICRO #### [facility] [address] [address] [address] Valeria Farris LEUKOCYTES Negative Normal NEGATIVE [facility] Comment on above: Performed By: #### U ACSIND, UMICRO #### [facility] [address] [address] [address] Valeria Farris Nitrite Ql (U) Negative Normal NEGATIVE [facility] Comment on above: Performed By: #### U ACSIND, UMICRO #### [facility] [address] [address] [address] Valeria Farris pH (U) 5.5 [pH] Normal 5-9 [facility] Comment on above: Performed By: #### U ACSIND, UMICRO #### [facility] [address] [place] [address] Dr. Valeria Farris SPEC GRAVITY 1.010 Normal 1.005-<=1.[address] [place] [address] Comment on above: Performed By: #### U ACSTRUPTI, ICRO #### [facility] [address] [address] [address] Valeria Farris UA PROTEIN Negative Normal NEGATIVE/ TRACE [facility] Comment on above: Performed By: #### U ACSIND, UMICRO #### [facility] [address] [place] [address] Dr. Valeria Farris UR MICRO IND INDICATED Normal [facility] Comment on above: Performed By: #### U ACSIND, UMICRO #### [facility] [address] [address] [address] Valeria Farris Urobilinogen Qn (U) 0.2 {Manolo'U}/dL Normal 0.2 - 1. 0 [facility] Comment on above: Performed By: #### U ACSIND, UMICRO #### [facility] [address] [address] [address] Valeria Farris URINE MICROSCOPIC ONLYon BACTERIA NONE SEEN Normal NONE SEEN [facility] Comment on above: Performed By: #### U ACSIND, UMICRO #### [facility] [address] [place] [address] Dr. Valeria Farris Bacteria identified Cx Nom (U) NOT INDICATED Normal [facility] Comment on above: Performed By: #### U ACSIND, UMICRO #### [facility] [address] [place] [address] Dr. Valeria Farris CAST NONE SEEN Normal NONE SEEN [facility] Comment on above: Performed By: #### U ACSIND, UMICRO #### [facility] [address] [place] [address] Dr. Valeria Farris Crystals LM Nom (Urine sed) NONE SEEN Normal NONE SEEN [facility] Comment on above: Performed By: #### U ACSIND, UMICRO #### [facility] [address] [place] [address] Dr. Valeria Farris Epithelial cells LM Ql (Urine sed) FEW Abnormal NONE SEEN /RARE [facility] Comment on above: Performed By: #### U ACSTRUPTI, ICRO #### [facility] [address] [place] [address] Dr. Valeria Farris MUCOUS NONE SEEN Normal NONE SEEN [facility] Comment on above: Performed By: #### U ACSTRUPTI, ICRO #### [facility] [address] [place] [address] Dr. Valeria Farris RBC 0-2 Normal 0-2 [facility] Comment on above: Performed By: #### U ACSTRUPTI, ICRO #### [facility] [address] [place] [address] Dr. Valeria Farris WBC NONE SEEN Normal NONE SEEN [facility] Comment on above: Performed By: #### U ACSTRUPTI, ICRO #### [facility] [address] [place] [address] Dr. Valeria Farris CHLAMYDIA/GONOCOCCUS SARANYA ( AB/URINE/PAPon 05-26-2022 Chlamydia trachomatis, SARANYA Negative Normal Negative [facility] Comment on above: Performed By: #### [id number] #### [facility] [address] [place] [address] Dr. Valeria Farris Neisseria gonorrhoeae, SARANYA Negative Normal Negative [facility] Comment on above: Performed By: #### [id number] #### [facility] [address] [place] [address] Dr. Valeria Farris AMYLASEon 05-25-2022 Amylase [Catalytic activity/Vol] 30 U/L Normal 25-115 [facility] Comment on above: Performed By: #### P [id number] #### [facility] [address] [place] [address] Dr. Valeria Farris CARDIAC VERNON 3-6on 3 CK [Catalytic activity/Vol] 119 U/L Normal 26-192 [facility] Comment on above: Performed By: #### P ROT24U #### [facility] [address] [place] [address] Dr. Valeria Farris CK.MB [Mass/Vol] ng/mL Normal <=3.60 [facility] Comment on above: Performed By: #### P ROT24U #### [facility] [address] [place] [address] Dr. Valeria Farris HSTROP <4.0 Normal 4.0-51.3 [facility] Comment on above: Result Comment: CUT- OFF POINTS HAVE BEEN ESTABLISHED BASED ON THE FOURTH UNIVERSAL DEFINITIONS OF MYOCARDIAL INFARCTION. THE UPPER REFERENCE LIMIT (URL) OF TROPONIN, DEFINED THE 99TH PERCENTILE OF cTnI DISTRIBUTION IN A REFERENCE POPULATION, HAS BEEN CONFIRMED THE DECISION THRESHOLD FOR OR DIAGNOSIS. Performed By: #### P [id number] #### [facility] [address] [place] [address] Dr. Valeria Farris CARDIAC VERNON ADMITon 023 CK [Catalytic activity/Vol] 121 U/L Normal 26-192 [facility] Comment on above: Performed By: #### P ROT24U #### [facility] [address] [place] [address] Dr. Valeria Farris CK.MB [Mass/Vol] 0.51 ng/mL Normal <=3.60 [facility] Comment on above: Performed By: #### P ROT24U #### [facility] [address] [place] [address] Dr. Valeria Farris HSTROP 4.1 pg/mL Normal 4.0-51.3 [facility] Comment on above: Result Comment: CUT- OFF POINTS HAVE BEEN ESTABLISHED BASED ON THE FOURTH UNIVERSAL DEFINITIONS OF MYOCARDIAL INFARCTION. THE UPPER REFERENCE LIMIT (URL) OF TROPONIN, DEFINED THE 99TH PERCENTILE OF cTnI DISTRIBUTION IN A REFERENCE POPULATION, HAS BEEN CONFIRMED THE DECISION THRESHOLD FOR OR DIAGNOSIS. Performed By: #### P [id number] #### [facility] [address] [place] [address] Dr. Valeria Farris MINI 19 ng/mL Normal 9-82 [facility] Comment on above: Performed By: #### P ROT24U #### [facility] [address] [place] [address] Dr. Valeria Farris CBC AUTO DIFFon 05-25-2022 BASO # 0.0 103/ul Normal 0.0-0.1 [facility] Comment on above: Performed By: #### [id number] #### [facility] [address] [place] [address] Dr. Valeria Farris Basophils/100 WBC (Bld) 0.2 % Normal 0.2-2.0 [facility] Comment on above: Performed By: #### [id number] #### [facility] [address] [place] [address] Dr. Valeria Farris EO # 0.1 103/ul Normal 0.0-0.7 [facility] Comment on above: Performed By: #### [id number] #### [facility] [address] [place] [address] Dr. Valeria Farris Eosinophils/100 WBC (Bld) 0.8 % Critically low 0.9-7.0 [facility] Comment on above: Performed By: #### [id number] #### [facility] [address] [place] [address] Dr. Valeria Farris Erythrocyte distribution width (RBC) [Ratio] 13.5 % Normal 11.0-15.0 [facility] Comment on above: Performed By: #### [id number] #### [facility] [address] [address] [address] Valeria Farris Hematocrit (Bld) [Volume fraction] 30.4 % Critically low 36.0-48.0 [facility] Comment on above: Performed By: #### [id number] #### [facility] [address] [place] [address] Dr. Valeria Farris Hemoglobin (Bld) [Mass/Vol] 9.8 g/dL Critically low 12.0-16.0 [facility] Comment on above: Performed By: #### [id number] #### [facility] [address] [place] [address] Dr. Valeria Farris IG # 0.21 10e3/ul Critically high 0.00-0.03 [facility] Comment on above: Performed By: #### 4 [id number] #### [facility] [address] [place] [address] Dr. Valeria Farris IG % 1.6 % Critically high 0.0-0.5 [facility] Comment on above: Performed By: #### 4 [id number] #### [facility] [address] [place] [address] Dr. Valeria Farris LYMPH # 2.8 103/ul Normal 1.2-3.8 [facility] Comment on above: Performed By: #### 4 [id number] #### [facility] [address] [place] [address] Dr. Valeria Farris Lymphocytes/100 WBC (Bld) 21.3 % Normal 20.5-60.0 [facility] Comment on above: Performed By: #### 4 [id number] #### [facility] [address] [place] [address] Dr. Valeria Farris MANUAL DIFF REQ NO Normal [facility] Comment on above: Performed By: #### 4 [id number] #### [facility] [address] [place] [address] Dr. Valeria Farris MCH (RBC) [Entitic mass] 28.2 pg Normal 26.7-34.0 [facility] Comment on above: Performed By: #### [id number] #### [facility] [address] [place] [address] Dr. Valeria Farris MCHC (RBC) [Mass/Vol] 32.2 g/dL Normal 29.9-35.2 [facility] Comment on above: Performed By: #### [id number] #### [facility] [address] [place] [address] Dr. Valeria Farris MCV (RBC) [Entitic vol] 87.6 fL Normal 81.0-99.0 [facility] Comment on above: Performed By: #### 4 [id number] #### [facility] [address] [place] [address] Dr. Valeria Farris MONO # 0.9 103/ul Critically high 0.3-0.8 [facility] Comment on above: Performed By: #### 4 [id number] #### [facility] [address] [place] [address] Dr. Valeria Farris Monocytes/100 WBC (Bld) 6.8 % Normal 1.7-12.0 [facility] Comment on above: Performed By: #### 4 [id number] #### [facility] [address] [place] [address] Dr. Valeria Farris NEUT # 9.0 103/ul Critically high 1.4-6.5 [facility] Comment on above: Performed By: #### 4 [id number] #### [facility] [address] [place] [address] Dr. Valeria Farris Neutrophils/100 WBC (Bld) 69.3 % Normal 43.0-75.0 [facility] Comment on above: Performed By: #### 4 [id number] #### [facility] [address] [place] [address] Dr. Valeria Farris Platelet mean volume (Bld) [Entitic vol] 10.5 fL Normal 9.5-13.5 [facility] Comment on above: Performed By: #### 4 [id number] #### [facility] [address] [place] [address] Dr. Valeria Farris PLT 187 103/ul Normal 150-450 [facility] Comment on above: Performed By: #### 4 [id number] #### [facility] [address] [place], [place] [address] Dr. Valeria Farris RBC 3.47 106/ul Critically low 4.20-5.40 [facility] Comment on above: Performed By: #### 4 [id number] #### [facility] [address] [place], [place] [address] Dr. Valeria Farris WBC 13.0 103/ul Critically high 4.0-11.0 [facility] Comment on above: Performed By: #### 4 [id number] #### [facility] [address] [place], [place] [address] Dr. Valeria Farris CTA CHEST WO W [...] Daryl LOPEZ Date: 2022-05-25 01:55 Normal [facility] CULTURE URINEon 05-25-2022 CULTURE URINE Culture Observations : HEAVY GROWTH OF MIXED GENITAL RIO. NO POTENTIAL PATHOGENS SEEN. Normal [facility] Comment on above: Performed By: #### [id number] #### [facility] [address] [place] [address] Dr. Valeria Farris LIPASEon 05-25-2022 Lipase [Catalytic activity/Vol] 54.0 U/L Critically low 73.0-393.0 [facility] Comment on above: Performed By: #### P [id number] #### [facility] [address] [place] [address] Dr. Valeria Farris PROF 14(COMP METB)on 023 Albumin [Mass/Vol] 2.5 g/dL Critically low 3.4-5.0 [facility] [place] [facility] Comment on above: Performed By: #### P [id number] #### [facility] [address] [place] [address] Dr. Valeria Farris Albumin/Globulin [Mass ratio] 0.6 {ratio} Normal [facility] Comment on above: Performed By: #### P [id number] #### [facility] [address] [place] [address] Dr. Valeria Farris ALP [Catalytic activity/Vol] 97 U/L Normal 46-116 [facility] Comment on above: Performed By: #### P [id number] #### [facility] [address] [place] [address] Dr. Valeria Farris ALT [Catalytic activity/Vol] 25 U/L Normal 14-59 [facility] Comment on above: Performed By: #### P [id number] #### [facility] [address] [place] [address] Dr. Valeria Farris Anion gap [Moles/Vol] 14.2 mmol/L Normal [facility] [place] [facility] Comment on above: Performed By: #### P [id number] #### [facility] [address] [place] [address] Dr. Valeria Farris AST [Catalytic activity/Vol] 12 U/L Critically low 15-37 [facility] Comment on above: Performed By: #### P [id number] #### [facility] [address] [place] [address] Dr. Valeria Farris Bilirubin [Mass/Vol] 0.2 mg/dL Normal 0.2-1.0 [facility] Comment on above: Performed By: #### P ROT24U #### [facility] [address] [place] [address] Dr. Valeria Farris Calcium [Mass/Vol] 8.5 mg/dL Normal 8.5-10.1 [facility] Comment on above: Performed By: #### P [id number] #### [facility] [address] [place] [address] Dr. Valeria Farris Chloride [Moles/Vol] 103 mmol/L Normal 98-107 [facility] Comment on above: Performed By: #### P ROT24U #### [facility] [address] [place] [address] Dr. Valeria Farris CO2 [Moles/Vol] 23.0 mmol/L Normal 21.0-32.0 [facility] Comment on above: Performed By: #### P ROT24U #### [facility] [address] [place] [address] Dr. Valeria Farris Creatinine [Mass/Vol] 0.39 mg/dL Critically low 0.55-1.02 [facility] Comment on above: Performed By: #### P ROT24U #### [facility] [address] [place] [address] Dr. Valeria Farris EGFR-AF GREEK >60 Normal >=60 [facility] Comment on above: Performed By: #### P ROT24U #### [facility] [address] [place] [address] Dr. Valeria Farris EGFR-NON AF GREEK >60 Normal >=60 [facility] Comment on above: Performed By: #### P ROT24U #### [facility] [address] [place] [address] Dr. Valeria Farris Globulin (S) [Mass/Vol] 4.0 g/dL Normal [facility] Comment on above: Performed By: #### P ROT24U #### [facility] [address] [place] [address] Dr. Valeria Farris Glucose [Mass/Vol] 113 mg/dL Critically high 74-106 [facility] Comment on above: Performed By: #### P ROT24U #### [facility] [address] [place] [address] Dr. Valeria Farris Potassium [Moles/Vol] 3.2 mmol/L Critically low 3.5-5.1 [facility] Comment on above: Performed By: #### P ROT24U #### [facility] [address] [place] [address] Dr. Valeria Farris Protein [Mass/Vol] 6.5 g/dL Normal 6.4-8.2 [facility] Comment on above: Performed By: #### P ROT24U #### [facility] [address] [place] [address] Dr. Valeria Farris Sodium [Moles/Vol] 137 mmol/L Normal 136-145 [facility] Comment on above: Performed By: #### P ROT24U #### [facility] [address] [place] [address] Dr. Valeria Farris Urea nitrogen [Mass/Vol] 8.0 mg/dL Normal 7.0-18.0 [facility] Comment on above: Performed By: #### P ROT24U #### [facility] [address] [place] [address] Dr. Valeria Farris Urea nitrogen/Creatinine [Mass ratio] 20.5 mg/mg Normal [facility] Comment on above: Performed By: #### P ROT24U #### [facility] [address] [place] [address] Dr. Valeria Farris UA (CLEAN/CATCH) MEAT STOCK CLERK/MICRO I F IND.on 05-25-2022 Bilirubin Ql (U) Negative Normal NEGATIVE [facility] Comment on above: Performed By: #### G LU1HR #### [facility] [address] [place] [address] Dr. Valeria Farris Clarity (U) CLEAR Normal CLEAR [facility] Comment on above: Performed By: #### G LU1HR #### [facility] [address] [place] [address] Dr. Valeria Farris Color (U) YELLOW Normal YELLOW [facility] Comment on above: Performed By: #### G LU1HR #### [facility] [address] [place] [address] Dr. Valeria Farris Glucose Ql (U) Negative Normal NEGATIVE [facility] Comment on above: Performed By: #### G LU1HR #### [facility] [address] [place] [address] Dr. Valeria Farris Hemoglobin Ql (U) TRACE-INTACT Abnormal NEGATIVE [facility] Comment on above: Performed By: #### G LU1HR #### [facility] [address] [place] [address] Dr. Valeria Farris Ketones Ql (U) TRACE Abnormal NEGATIVE [facility] Comment on above: Performed By: #### G LU1HR #### [facility] [address] [place] [address] Dr. Valeria Farris LEUKOCYTES Negative Normal NEGATIVE [facility] Comment on above: Performed By: #### G LU1HR #### [facility] [address] [place] [address] Dr. Valeria Farris Nitrite Ql (U) Negative Normal NEGATIVE [facility] Comment on above: Performed By: #### G LU1HR #### [facility] [address] [place] [address] Dr. Valeria Farris pH (U) 6.0 [pH] Normal 5-9 [facility] Comment on above: Performed By: #### G LU1HR #### [facility] [address] [place] [address] Dr. Valeria Farris SPEC GRAVITY >=1.030 Abnormal 1.005-<=1.02 5 [facility] Comment on above: Performed By: #### G LU1HR #### [facility] [address] [place] [address] Dr. Valeria Farris UA PROTEIN Negative Normal NEGATIVE/ TRACE [facility] Comment on above: Performed By: #### G LU1HR #### [facility] [address] [place] [address] Dr. Valeria Farris UR MICRO IND INDICATED Normal [facility] Comment on above: Performed By: #### G LU1HR #### [facility] [address] [place] [address] Dr. Valeria Farris Urobilinogen Qn (U) 0.2 {Manolo'U}/dL Normal 0.2 - 1. 0 [facility] Comment on above: Performed By: #### G LU1HR #### [facility] [address] [place] [address] Dr. Valeria Farris URINE MICROSCOPIC ONLYon BACTERIA SMALL Abnormal NONE SEEN [facility] Comment on above: Performed By: #### G LU1HR #### [facility] [address] [place] [address] Dr. Valeria Farris Bacteria identified Cx Nom (U) INDICATED Normal [facility] Comment on above: Performed By: #### G LU1HR #### [facility] [address] [place] [address] Dr. Valeria Farris CA OX CRYSTALS FEW Normal [facility] Comment on above: Performed By: #### G LU1HR #### [facility] [address] [place] [address] Dr. Valeria Farris CAST NONE SEEN Normal NONE SEEN [facility] Comment on above: Performed By: #### G LU1HR #### [facility] [address] [place] [address] Dr. Valeria Farris Crystals LM Nom (Urine sed) SEEN Abnormal NONE SEEN [facility] Comment on above: Performed By: #### G LU1HR #### [facility] [address] [place] [address] Dr. Valeria Farris Epithelial cells LM Ql (Urine sed) MANY Abnormal NONE SEEN /RARE [facility] Comment on above: Performed By: #### G LU1HR #### [facility] [address] [place] [address] Dr. Valeria Farris MUCOUS TRACE Abnormal NONE SEEN [facility] Comment on above: Performed By: #### G LU1HR #### [facility] [address] [place] [address] Dr. Valeria Farris RBC 2-5 Abnormal 0-2 [facility] Comment on above: Performed By: #### G LU1HR #### [facility] [address] [place] [address] Dr. Valeria Farris WBC NONE SEEN Normal NONE SEEN [facility] Comment on above: Performed By: #### G LU1HR #### [facility] [address] [place] [address] Dr. Valeria Farris VAGINITIS/VAGINOSIS DNA PROB Sam 05-25-2022 Litzy species Negative Normal Negative [facility] Comment on above: Performed By: #### P REGQNT #### [facility] [address] [place] [address] Dr. Valeria Farris Gardnerella vaginalis Positive Abnormal Negative [facility] Comment on above: Performed By: #### P REGQNT #### [facility] [address] [place] [address] Dr. Valeria Farris Trichomonas vaginalis Negative Normal Negative [facility] Comment on above: Performed By: #### P REGQNT #### [facility] [address] [place] [address] Dr. Valeria Farris UA (CLEAN/CATCH) MEAT STOCK CLERK/MICRO I F IND.on 05-04-2022 Bilirubin Ql (U) Negative Normal NEGATIVE [facility] Comment on above: Performed By: #### P REGQNT #### [facility] [address] [place] [address] Dr. Valeria Farris Clarity (U) CLEAR Normal CLEAR [facility] Comment on above: Performed By: #### P REGQNT #### [facility] [address] [place] [address] Dr. Valeria Farris Color (U) LT. YELLOW Normal YELLOW [facility] Comment on above: Performed By: #### P REGQNT #### [facility] [address] [place] [address] Dr. Valeria Farris Glucose Ql (U) Negative Normal NEGATIVE [facility] Comment on above: Performed By: #### P REGQNT #### [facility] [address] [address] [address] Valeria Farris Hemoglobin Ql (U) SMALL Abnormal NEGATIVE [facility] Comment on above: Performed By: #### P REGQNT #### [facility] [address] [address] [address] Valeria Farris Ketones Ql (U) TRACE Abnormal NEGATIVE [facility] Comment on above: Performed By: #### P REGQNT #### [facility] [address] [address] [address] Valeria Farris LEUKOCYTES Negative Normal NEGATIVE [facility] Comment on above: Performed By: #### P REGQNT #### [facility] [address] [address] [address] Valeria Farris Nitrite Ql (U) Negative Normal NEGATIVE [facility] Comment on above: Performed By: #### P REGQNT #### [facility] [address] [place] [address] Dr. Valeria Farris pH (U) 6.5 [pH] Normal 5-9 [facility] Comment on above: Performed By: #### P REGQNT #### [facility] [address] [place] [address] Dr. Valeria Farris SPEC GRAVITY 1.025 Normal 1.005-<=1.02 5 [facility] Comment on above: Performed By: #### P REGQNT #### [facility] [address] [place] [address] Dr. Valeria Farris UA PROTEIN Negative Normal NEGATIVE/ TRACE [facility] Comment on above: Performed By: #### P REGQNT #### [facility] [address] [place] [address] Dr. Valeria Farris UR MICRO IND INDICATED Normal [facility] Comment on above: Performed By: #### P REGQNT #### [facility] [address] [place] [address] Dr. Valeria Farris Urobilinogen Qn (U) 0.2 {Manolo'U}/dL Normal 0.2 - 1. 0 [facility] Comment on above: Performed By: #### P REGQNT #### [facility] [address] [place] [address] Dr. Valeria Farris URINE MICROSCOPIC ONLYon BACTERIA NONE SEEN Normal NONE SEEN [facility] Comment on above: Performed By: #### U ACSTRUPTI, UMICRO #### [facility] [address] [place] [address] Dr. Valeria Farris Bacteria identified Cx Nom (U) NOT INDICATED Normal [facility] Comment on above: Performed By: #### U ACSTRUPTI, UMICRO #### [facility] [address] [place] [address] Dr. Valeria Farris CAST NONE SEEN Normal NONE SEEN [facility] Comment on above: Performed By: #### U ACSTRUPTI, UMICRO #### [facility] [address] [place] [address] Dr. Valeria Farris Crystals LM Nom (Urine sed) NONE SEEN Normal NONE SEEN [facility] Comment on above: Performed By: #### U ACSTRUPTI, UMICRO #### [facility] [address] [place] [address] Dr. Valeria Farris Epithelial cells LM Ql (Urine sed) FEW Abnormal NONE SEEN /RARE [facility] Comment on above: Performed By: #### U ACSTRUPTI UMICRO #### [facility] [address] [place] [address] Dr. Valeria Farris MUCOUS TRACE Abnormal NONE SEEN [facility] Comment on above: Performed By: #### U ACSTRUPTI UMICRO #### [facility] [address] [place] [address] Dr. Valeria Farris RBC 0-2 Normal 0-2 [facility] Comment on above: Performed By: #### U ACSTRUPTI, UMICRO #### [facility] [address] [place] [address] Dr. Valeria Farris WBC NONE SEEN Normal NONE SEEN [facility] Comment on above: Performed By: #### U ACSIND, UMICRO #### [facility] [address] [place] [address] Dr. Valeria Farris AMYLASEon 04-12-2022 Amylase [Catalytic activity/Vol] 31 U/L Normal 25-115 [facility] Comment on above: Performed By: #### G LU1HR #### [facility] [address] [place] [address] Dr. Valeria Farris BUNon 04-12-2022 Urea nitrogen [Mass/Vol] 7.0 mg/dL Normal 7.0-18.0 [facility] Comment on above: Performed By: #### G LU1HR #### [facility] [address] [place] [address] Dr. Valeria Farris CBC AUTO DIFFon 04-12-2022 BASO # 0.0 103/ul Normal 0.0-0.1 [facility] Comment on above: Performed By: #### P REGQNT #### [facility] [address] [place] [address] Dr. Valeria Farris Basophils/100 WBC (Bld) 0.3 % Normal 0.2-2.0 [facility] Comment on above: Performed By: #### P REGQNT #### [facility] [address] [place] [address] Dr. Valeria Farris EO # 0.3 103/ul Normal 0.0-0.7 [facility] Comment on above: Performed By: #### P REGQNT #### [facility] [address] [place] [address] Dr. Valeria Farris Eosinophils/100 WBC (Bld) 2.3 % Normal 0.9-7.0 [facility] Comment on above: Performed By: #### P REGQNT #### [facility] [address] [place] [address] Dr. Valeria Farris Erythrocyte distribution width (RBC) [Ratio] 12.8 % Normal 11.0-15.0 [facility] Comment on above: Performed By: #### P REGQNT #### [facility] [address] [place] [address] Dr. Valeria Farris Hematocrit (Bld) [Volume fraction] 34.9 % Critically low 36.0-48.0 [facility] Comment on above: Performed By: #### P REGQNT #### [facility] [address] [place] [address] Dr. Valeria Farris Hemoglobin (Bld) [Mass/Vol] 11.8 g/dL Critically low 12.0-16.0 [facility] Comment on above: Performed By: #### P REGQNT #### [facility] [address] [place] [address] Dr. Valeria Farris IG # 0.08 10e3/ul Critically high 0.00-0.03 [facility] Comment on above: Performed By: #### P REGQNT #### [facility] [address] [place] [address] Dr. Valeria Farris IG % 0.7 % Critically high 0.0-0.5 [facility] Comment on above: Performed By: #### P REGQNT #### [facility] [address] [place] [address] Dr. Valeria Farris LYMPH # 2.6 103/ul Normal 1.2-3.8 [facility] Comment on above: Performed By: #### P REGQNT #### [facility] [address] [place] [address] Dr. Valeria Farris Lymphocytes/100 WBC (Bld) 22.4 % Normal 20.5-60.0 [facility] Comment on above: Performed By: #### P REGQNT #### [facility] [address] [place] [address] Dr. Valeria Farris MANUAL DIFF REQ NO Normal [facility] Comment on above: Performed By: #### P REGQNT #### [facility] [address] [place] [address] Dr. Valeria Farris MCH (RBC) [Entitic mass] 28.5 pg Normal 26.7-34.0 [facility] Comment on above: Performed By: #### P REGQNT #### [facility] [address] [place] [address] Dr. Valeria Farris MCHC (RBC) [Mass/Vol] 33.8 g/dL Normal 29.9-35.2 [facility] Comment on above: Performed By: #### P REGQNT #### [facility] [address] [address] [address] Valeria Farris MCV (RBC) [Entitic vol] 84.3 fL Normal 81.0-99.0 [facility] Comment on above: Performed By: #### P REGQNT #### [facility] [address] [place] [address] Dr. Valeria Farris MONO # 0.8 103/ul Normal 0.3-0.8 [facility] Comment on above: Performed By: #### P REGQNT #### [facility] [address] [place] [address] Dr. Valeria Farris Monocytes/100 WBC (Bld) 6.8 % Normal 1.7-12.0 [facility] Comment on above: Performed By: #### P REGQNT #### [facility] [address] [place] [address] Dr. Valeria Farris NEUT # 7.8 103/ul Critically high 1.4-6.5 [facility] Comment on above: Performed By: #### P REGQNT #### [facility] [address] [place] [address] Dr. Valeria Farris Neutrophils/100 WBC (Bld) 67.5 % Normal 43.0-75.0 [facility] Comment on above: Performed By: #### P REGQNT #### [facility] [address] [place] [address] Dr. Valeria Farris Platelet mean volume (Bld) [Entitic vol] 10.3 fL Normal 9.5-13.5 [facility] Comment on above: Performed By: #### P REGQNT #### [facility] [address] [place] [address] Dr. Valeria Farris PLT 195 103/ul Normal 150-450 [facility] Comment on above: Performed By: #### P REGQNT #### [facility] [address] [place] [address] Dr. Valeria Farris RBC 4.14 106/ul Critically low 4.20-5.40 [facility] Comment on above: Performed By: #### P REGQNT #### [facility] [address] [place] [address] Dr. Valeria Farris WBC 11.5 103/ul Critically high 4.0-11.0 [facility] Comment on above: Performed By: #### P REGQNT #### [facility] [address] [place] [address] Dr. Valeria Farris CREATININEon 04-12-2022 Creatinine [Mass/Vol] 0.44 mg/dL Critically low 0.55-1.02 [facility] Comment on above: Performed By: #### G LU1HR #### [facility] [address] [place] [address] Dr. Valeria Farris EGFR-AF GREEK >60 Normal >=60 [facility] Comment on above: Performed By: #### G LU1HR #### [facility] [address] [place] [address] Dr. Valeria Farris EGFR-NON AF GREEK >60 Normal >=60 [facility] Comment on above: Performed By: #### G LU1HR #### [facility] [address] [place] [address] Dr. Valeria Farris LIPASEon 04-12-2022 Lipase [Catalytic activity/Vol] 62.0 U/L Critically low 73.0-393.0 [facility] Comment on above: Performed By: #### G LU1HR #### [facility] [address] [place] [address] Dr. Valeria Farris LIVER PROFILEon 04-12-2022 Albumin [Mass/Vol] 2.9 g/dL Critically low 3.4-5.0 [facility] Comment on above: Performed By: #### G LU1HR #### [facility] [address] [place] [address] Dr. Valeria Farris Albumin/Globulin [Mass ratio] 0.7 {ratio} Normal [facility] Comment on above: Performed By: #### G LU1HR #### [facility] [address] [place] [address] Dr. Valeria Farris ALP [Catalytic activity/Vol] 86 U/L Normal 46-116 [facility] Comment on above: Performed By: #### G LU1HR #### [facility] [address] [address] [address] Valeria Farris ALT [Catalytic activity/Vol] 14 U/L Normal 14-59 [facility] Comment on above: Performed By: #### G LU1HR #### [facility] [address] [address] [address] Valeria Farris AST [Catalytic activity/Vol] 12 U/L Critically low 15-37 [facility] Comment on above: Performed By: #### G LU1HR #### [facility] [address] [place] [address] Dr. Valeria Farris BILI, CONJUGATED 0.1 mg/dL Normal 0.0-0.2 [facility] Comment on above: Performed By: #### G LU1HR #### [facility] [address] [place] [address] Dr. Valeria Farris Bilirubin [Mass/Vol] 0.2 mg/dL Normal 0.2-1.0 [facility] Comment on above: Performed By: #### G LU1HR #### [facility] [address] [place] [address] Dr. Valeria Farris Globulin (S) [Mass/Vol] 4.2 g/dL Normal [facility] Comment on above: Performed By: #### G LU1HR #### [facility] [address] [place] [address] Dr. Valeria Farris Protein [Mass/Vol] 7.1 g/dL Normal 6.4-8.2 [facility] Comment on above: Performed By: #### G LU1HR #### [facility] [address] [place] [address] Dr. Valeria Farris PROF 14(COMP METB)on 022 Anion gap [Moles/Vol] 13.1 mmol/L Normal [facility] Comment on above: Performed By: #### G LU1HR #### [facility] [address] [place] [address] Dr. Valeria Farris Calcium [Mass/Vol] 8.7 mg/dL Normal 8.5-10.1 [facility] Comment on above: Performed By: #### G LU1HR #### [facility] [address] [address] [address] Valeria Farris Chloride [Moles/Vol] 100 mmol/L Normal 98-107 [facility] Comment on above: Performed By: #### G LU1HR #### [facility] [address] [address] [address] Valeria Farris CO2 [Moles/Vol] 25.4 mmol/L Normal 21.0-32.0 [facility] Comment on above: Performed By: #### G LU1HR #### [facility] [address] [address] [address] Valeria Farris Glucose [Mass/Vol] 87 mg/dL Normal 74-106 [facility] Comment on above: Performed By: #### G LU1HR #### [facility] [address] [address] [address] Valeria Farris Potassium [Moles/Vol] 3.5 mmol/L Normal 3.5-5.1 [facility] Comment on above: Performed By: #### G LU1HR #### [facility] [address] [place] [address] Dr. Valeria Farris Sodium [Moles/Vol] 135 mmol/L Critically low 136-145 [facility] Comment on above: Performed By: #### G LU1HR #### [facility] [address] [place] [address] Dr. Valeria Farris Urea nitrogen/Creatinine [Mass ratio] 15.9 mg/mg Normal [facility] Comment on above: Performed By: #### G LU1HR #### [facility] [address] [place] [address] Dr. Valeria Farris US PREG CERVICAL LENGTHon [...] GERARD GONZALEZ Date: 2022-04-12 16:39 Normal [facility] UA (CLEAN/CATCH) MEAT STOCK CLERK/MICRO I F IND.on 04-11-2022 Bilirubin Ql (U) Negative Normal NEGATIVE [facility] Comment on above: Performed By: #### U ACSIND, UMICRO #### [facility] [address] [place] [address] Dr. Valeria Farris Clarity (U) CLEAR Normal CLEAR [facility] Comment on above: Performed By: #### U ACSIND, UMICRO #### [facility] [address] [place] [address] Dr. Valeria Farris Color (U) LT. YELLOW Normal YELLOW [facility] Comment on above: Performed By: #### U ACSIND, UMICRO #### [facility] [address] [place] [address] Dr. Valeria Farris Glucose Ql (U) Negative Normal NEGATIVE [facility] Comment on above: Performed By: #### U ACSIND, UMICRO #### [facility] [address] [place] [address] Dr. Valeria Farris Hemoglobin Ql (U) TRACE-INTACT Abnormal NEGATIVE [facility] Comment on above: Performed By: #### U ACSIND, UMICRO #### [facility] [address] [place] [address] Dr. Valeria Farris Ketones Ql (U) Negative Normal NEGATIVE [facility] Comment on above: Performed By: #### U ACSIND, UMICRO #### [facility] [address] [place] [address] Dr. Valeria Farris LEUKOCYTES Negative Normal NEGATIVE [facility] Comment on above: Performed By: #### U ACSIND, UMICRO #### [facility] [address] [place] [address] Dr. Valeria Farris Nitrite Ql (U) Negative Normal NEGATIVE [facility] Comment on above: Performed By: #### U ACSIND, UMICRO #### [facility] [address] [place] [address] Dr. Valeria Farris pH (U) 6.5 [pH] Normal 5-9 [facility] Comment on above: Performed By: #### U ACSIND, UMICRO #### [facility] [address] [place] [address] Dr. Valeria Farris SPEC GRAVITY 1.010 Normal 1.005-<=1.02 5 [facility] Comment on above: Performed By: #### U ACSIND, UMICRO #### [facility] [address] [place] [address] Dr. Valeria Farris UA PROTEIN Negative Normal NEGATIVE/ TRACE [facility] Comment on above: Performed By: #### U ACSIND, UMICRO #### [facility] [address] [place] [address] Dr. Valeria Farris UR MICRO IND INDICATED Normal [facility] Comment on above: Performed By: #### U ACSIND, UMICRO #### [facility] [address] [place] [address] Dr. Valeria Farris Urobilinogen Qn (U) 0.2 {Manolo'U}/dL Normal 0.2 - 1. 0 [facility] Comment on above: Performed By: #### U ACSIND, UMICRO #### [facility] [address] [place] [address] Dr. Valeria Farris URINE MICROSCOPIC ONLYon BACTERIA NONE SEEN Normal NONE SEEN [facility] Comment on above: Performed By: #### U ACSIND, UMICRO #### [facility] [address] [place] [address] Dr. Valeria Farris Bacteria identified Cx Nom (U) NOT INDICATED Normal [facility] Comment on above: Performed By: #### U ACSIND, UMICRO #### [facility] [address] [place] [address] Dr. Valeria Farris CAST NONE SEEN Normal NONE SEEN [facility] Comment on above: Performed By: #### U ACSIND, UMICRO #### [facility] [address] [address] [address] Valeria Farris Crystals LM Nom (Urine sed) NONE SEEN Normal NONE SEEN [facility] Comment on above: Performed By: #### U ACSIND, UMICRO #### [facility] [address] [address] [address] Valeria Farris Epithelial cells LM Ql (Urine sed) FEW Abnormal NONE SEEN /RARE [facility] Comment on above: Performed By: #### U ACSIND, UMICRO #### [facility] [address] [address] [address] Valeria Farris MUCOUS NONE SEEN Normal NONE SEEN [facility] Comment on above: Performed By: #### U ACSIND, UMICRO #### [facility] [address] [address] [address] Valeria Farris RBC 0-2 Normal 0-2 [facility] Comment on above: Performed By: #### U ACSIND, UMICRO #### [facility] [address] [address] [address] Valeria Farris WBC 0-2 Abnormal NONE SEEN [facility] Comment on above: Performed By: #### U ACSIND, UMICRO #### [facility] [address] [address] [address] Valeria Farris US PREG ANATOMY SINGLEon [...] ALINE GALICIA Date: 2022-03-28 10:57 Normal [facility] XR SHOULDER RT 2V or >on XR SHOULDER RT 2V or > EXAM: XR SHOULDER RT 2V or > INDICATION: Pain. COMPARISON: None. TECHNIQUE: Right shoulder, 3 views. FINDINGS: No acute fracture or dislocation. Intact glenohumeral and acromioclavicular joints. Unremarkable soft tissues. IMPRESSION: Normal right shoulder. Electronically authenticated by: GILDARDO TAYLOR Date: 2022-03-19 08:36 Normal [facility] AFP TETRA PROFILE (MATERNAL) on 03-08-2022 AFP MoM 0.60 Normal [facility] Comment on above: Performed By: #### U DAPHNE LANDEROS #### [facility] [address] [address] [address] Valeria Farris AFP Value 15.2 ng/mL Normal [facility] Comment on above: Performed By: #### U DAPHNE LANDEROS #### [facility] [id number] Valeria Farris Comment Comment Normal [facility] Comment on above: Result Comment: Nicolás Ramirez, Ph.D., [facility] Director . References: Available Upon Request. . Multiples Of Median Cutoffs Abbreviation Definitions For AFP Elevations IDD- Insulin Dep Diabetes Rodriguez 2.5 Black 2.8 OSBR- Open Spina Bifida IDD 2.0 Twins 4.5 Risk DSR Cutoff 1:270 DSR- Down Syndrome Risk T18 Cutoff 1:100 T18- Trisomy 18 . For further inquiries contact [facility] at [phone]. . This test was developed and its performance characteristics determined by [facility]. It has not been cleared or approved by the Food and Drug Administration. Performed By: #### U LETI UMICRO #### [facility] [address] [address] [address] Valeria Farris CHACE MoM 0.90 Normal [facility] Comment on above: Performed By: #### U LETI UMICRO #### [facility] [address] [address] [address] Valeria Farris CHACE Value 95.93 pg/mL [facility] Comment on above: Performed By: #### U LETI UMICRO #### [facility] [address] [address] [address] Valeria Farris DSR (By Age) 1 IN 656 Normal [facility] Comment on above: Performed By: #### U LETI UMICRO #### [facility] [address] [address] [address] Valeria Farris DSR (Second Trimester) 1 [place] 5782 Normal [facility] Comment on above: Performed By: #### U LETI UMICRO #### [facility] [address] [address] [address] Valeria Chaudhry Age on Collection Date 16.7 WEEKS Normal [facility] Comment on above: Performed By: #### U LETI UMICRO #### [facility] [address] [address] [address] Valeria Phillip. Age Based On SUNSHINE [facility] Comment on above: Result Comment: 07/23 Performed By: #### U LETI UMICRO #### [facility] [address] [address] [address] Valeria Farris hCG MoM 0.61 Normal [facility] Comment on above: Performed By: #### U ACSIND, UMICRO #### [facility] [address] [address] [place] [address] m[IU]/mL Normal [facility] Comment on above: Performed By: #### U ACSIND, UMICRO #### [facility] [address] [address] [address] Valeria Farris Insulin Dep Diabetes No Normal [facility] Comment on above: Performed By: #### U ACSIND, UMICRO #### [facility] [address] [address] [address] Valeria Farris Interpretation Comment Normal [facility] Comment on above: Result Comment: Inte [...] identifies 60% of Trisomy 18 pregnancies. The [employer] recommends amniocentesis be offered to women age 35 and older. Recalculations are not recommended when gestational dating by LMP and ultrasound are within 10 days. Performed By: #### U ACSTRUPTI UMICRO #### [facility] [address] [address] [address] Valeria Farris [age] Normal [facility] Comment on above: Performed By: #### U ACSIND UMICRO #### [facility] [address] [address] [address] Valeria Farris Multiple Gestation No Normal [facility] Comment on above: Performed By: #### U ACSIND, UMICRO #### [facility] [address] [address] [address] Valeria Farris OS[place] 1 [place] [address] Normal [facility] Comment on above: Performed By: #### U ACSIND, UMICRO #### [facility] [address] [address] [address] Valeria Farris PDF . Normal [facility] Comment on above: Performed By: #### U ACSIND, UMICRO #### [facility] [address] [address] [address] Valeria Farris Race Normal [facility] Comment on above: Performed By: #### U ACSTRUPTI, UMICRO #### [facility] [address] [address] [address] Valeria Farris Results Report Normal [facility] Comment on above: Performed By: #### U ACSTRUPTI, UMICRO #### [facility] [address] [address] [address] Valeria Farris T18 (By Age) 1:2556 [facility] Comment on above: Performed By: #### U ACSTRUPTI UMICRO #### [facility] [address] [address] [address] Valeria Farris T18 Risk Not increased Normal [facility] Comment on above: Performed By: #### U ACSTRUPTI UMICRO #### [facility] [address] [address] [address] Valeria Farris Test Results: Negative Normal [facility] Comment on above: Performed By: #### U ACSTRUPTI, UMICRO #### [facility] [address] [address] [address] Valeria Farris uE3 MoM 0.75 [facility] Comment on above: Performed By: #### U ACSTRUPTI, UMICRO #### [facility] [address] [address] [address] Valeria Farris uE3 Value 0.71 ng/mL [facility] Comment on above: Performed By: #### U ACSIND, UMICRO #### [facility] [address] [address] [address] Valeria Farris GLUCOSE - 1HRon 03-03-2022 Glucose [Mass/Vol] 214 mg/dL Critically high 74-106 [facility] Comment on above: Performed By: #### G LU1HR #### [facility] [address] [address] [address] Valeria Farris HEPATITIS C VIRUS AB W/ REFL EX QUANTon 01-11-2022 HCV AB <0.1 Normal 0.0-0.9 [facility] Comment on above: Performed By: #### P REGQNT #### [facility] [address] [place] [address] Dr. Valeria Farris Interpretation: Comment Normal [facility] Comment on above: Result Comment: Nega tive Not infected with HCV, unless recent infection is suspected or other evidence exists to indicate HCV infection. Performed By: #### P REGQNT #### [facility] [address] [place] [address] Dr. Valeria Farris HEP B SURFACE ANTIGEN SCREEN on 01-10-2022 HBsAg Screen Negative Normal Negative [facility] Comment on above: Performed By: #### P REGQNT #### [facility] [address] [place] [address] Dr. Valeria Farris HIV 1 AND 2 WITH REFLEXon HIV Screen 4th Generation wRfx Non-Reactive Normal Non Reactive [facility] Comment on above: Result Comment: HIV Negative HIV-1/HIV-2 antibodies and HIV-1 p24 antigen were NOT detected. There is no laboratory evidence of HIV infection. Performed By: #### H IV12 #### [facility] [address] [place] [address] Dr. Valeria Farris RPR QUANTon 01-10-2022 Rapid Plasma Reagin, Quant Non-Reactive Normal NonRea<1:1 [facility] Comment on above: Result Comment: Plea se Note: This test does not meet current guidelines for screening and diagnosis of syphilis. This test is intended for following treatment response in patients being treated for syphilis infection. To screen for syphilis infection, a reflex cascade that includes both RPR and a treponema-specific assay should be utilized, such as Treponema pallidum (Syphilis) Screening [place] (270371) or Rapid Plasma Reagin (RPR) Test With Reflex to Quantitative RPR and Confirmatory Treponema pallidum Antibodies (757748). Performed By: #### R PRQ #### [facility] [address] [place] [address] Dr. Valeria Farris RUBELLA AB IGGon 01-10-2022 Rubella Antibodies, IgG 1.83 index Normal Immune >0.99 [facility] Comment on above: Result Comment: Non- immune <0.90 Equivocal 0.90 - 0.99 Immune >0.99 Performed By: #### U ACSIND, UMICRO #### [facility] [address] [place] [address] Dr. Valeria Farris CBC AUTO DIFFon 01-09-2022 BASO # 0.0 103/ul Normal 0.0-0.1 [facility] Comment on above: Performed By: #### 4 [id number] #### [facility] [address] [place] [address] Dr. Valeria Farris Basophils/100 WBC (Bld) 0.4 % Normal 0.2-2.0 [facility] Comment on above: Performed By: #### 4 [id number] #### [facility] [address] [place] [address] Dr. Valeria Farris EO # 0.3 103/ul Normal 0.0-0.7 [facility] Comment on above: Performed By: #### 4 [id number] #### [facility] [address] [place] [address] Dr. Valeria Farris Eosinophils/100 WBC (Bld) 3.5 % Normal 0.9-7.0 [facility] Comment on above: Performed By: #### 4 [id number] #### [facility] [address] [place] [address] Dr. Valeria Farris Erythrocyte distribution width (RBC) [Ratio] 13.6 % Normal 11.0-15.0 [facility] Comment on above: Performed By: #### 4 [id number] #### [facility] [address] [place] [address] Dr. Valeria Farris Hematocrit (Bld) [Volume fraction] 38.9 % Normal 36.0-48.0 [facility] Comment on above: Performed By: #### 4 [id number] #### [facility] [address] [place] [address] Dr. Valeria Farris Hemoglobin (Bld) [Mass/Vol] 12.9 g/dL Normal 12.0-16.0 [facility] Comment on above: Performed By: #### 4 [id number] #### [facility] [address] [place] [address] Dr. Valeria Farris IG # 0.04 10e3/ul Critically high 0.00-0.03 [facility] Comment on above: Performed By: #### 4 [id number] #### [facility] [address] [place] [address] Dr. Valeria Farris IG % 0.4 % Normal 0.0-0.5 [facility] Comment on above: Performed By: #### 4 [id number] #### [facility] [address] [place] [address] Dr. Valeria Farris LYMPH # 2.1 103/ul Normal 1.2-3.8 [facility] Comment on above: Performed By: #### 4 [id number] #### [facility] [address] [place] [address] Dr. Valeria Farris Lymphocytes/100 WBC (Bld) 21.5 % Normal 20.5-60.0 [facility] Comment on above: Performed By: #### 4 [id number] #### [facility] [address] [place] [address] Dr. Valeria Farris MANUAL DIFF REQ NO Normal [facility] Comment on above: Performed By: #### 4 [id number] #### [facility] [address] [place] [address] Dr. Valeria Farris MCH (RBC) [Entitic mass] 27.9 pg Normal 26.7-34.0 [facility] Comment on above: Performed By: #### 4 [id number] #### [facility] [address] [place] [address] Dr. Valeria Farris MCHC (RBC) [Mass/Vol] 33.2 g/dL Normal 29.9-35.2 [facility] Comment on above: Performed By: #### 4 [id number] #### [facility] [address] [address] [address] Valeria Farris MCV (RBC) [Entitic vol] 84.0 fL Normal 81.0-99.0 [facility] Comment on above: Performed By: #### 4 [id number] #### [facility] [address] [place] [address] Dr. Valeria Farris MONO # 0.6 103/ul Normal 0.3-0.8 [facility] Comment on above: Performed By: #### 4 [id number] #### [facility] [address] [place] [address] Dr. Valeria Farris Monocytes/100 WBC (Bld) 5.6 % Normal 1.7-12.0 [facility] Comment on above: Performed By: #### 4 [id number] #### [facility] [address] [place] [address] Dr. Valeria Farris NEUT # 6.7 103/ul Critically high 1.4-6.5 [facility] Comment on above: Performed By: #### 4 [id number] #### [facility] [address] [place] [address] Dr. Valeria Farris Neutrophils/100 WBC (Bld) 68.6 % Normal 43.0-75.0 [facility] Comment on above: Performed By: #### 4 [id number] #### [facility] [address] [place] [address] Dr. Valeria Farris Platelet mean volume (Bld) [Entitic vol] 9.9 fL Normal 9.5-13.5 [facility] Comment on above: Performed By: #### 4 [id number] #### [facility] [address] [place] [address] Dr. Valeria Farris PLT 244 103/ul Normal 150-450 [facility] Comment on above: Performed By: #### 4 [id number] #### [facility] [address] [place] [address] Dr. Valeria Farris RBC 4.63 106/ul Normal 4.20-5.40 [facility] Comment on above: Performed By: #### 4 [id number] #### [facility] [address] [address] [address] Valeria Farris WBC 9.7 103/ul Normal 4.0-11.0 [facility] Comment on above: Performed By: #### 4 [id number] #### [facility] [address] [place] [address] Dr. Valeria Farris CULTURE URINEon 01-09-2022 CULTURE URINE Culture Observations : MODERATE GROWTH OF MIXED GENITAL RIO. NO POTENTIAL PATHOGENS SEEN. Normal [facility] Comment on above: Performed By: #### U RCX #### [facility] [address] [place] [address] Dr. Valeria Farris GLYCOHEMOGLOBIN A1Con 2021 ADA RECOMMENDATION SEE BELOW Normal [facility] Comment on above: Result Comment: ADA RECOMMENDED LIMIT 4.0 - 6.0 ADA THERAPEUTIC TARGET < 7.0 ACTION SUGGESTED > 7.0 Performed By: #### P REGQNT #### [facility] [address] [place] [address] Dr. Valeria Farris Glucose [Mass/Vol] 111 mg/dL Normal [facility] Comment on above: Performed By: #### P REGQNT #### [facility] [address] [place] [address] Dr. Valeria Farris HbA1c (Bld) [Mass fraction] 5.5 % Normal 4.5-6.2 [facility] Comment on above: Performed By: #### P REGQNT #### [facility] [address] [place] [address] Dr. Valeria Farris LETHA BOX TEST PT SEND OUTo n 01-09-2022 SENT TO REF LAB 01/09/2022 Normal [facility] Comment on above: Performed By: #### N BOX #### [facility] [address] [place] [address] Dr. Valeria Farris TYPE AND SCREENon 01-09-2022 TYPE AND SCREEN Negative Normal [facility] Comment on above: Performed By: #### [id number] #### [facility] [address] [address] [address] Valeria Farris US PREG TVon 12-30-2021 [...] by: GERARD GONZALEZ Date: 2021-12-30 17:14 Normal [facility] US PREG TVon 12-15-2021 US [...] by: GERARD GONZALEZ Date: 2021-12-14 22:02 Normal [facility] HCG-BETA SUBUNIT QUANTon hCG,Beta Subunit,Qnt,Serum 571 mIU/mL Normal [facility] Comment on above: Result Comment: Fema le (Non-) 0 - 5 (Postmenopausal) 0 - 8 . Female () Weeks of Gestation 3 6 - 71 4 10 - 750 5 776 - 4278 6 019 - 74396 7 0960 -891302 8 97567 -015244 9 50072 -410661 10 48734 -183331 12 17452 -632220 14 64360 - 26606 15 93735 - 66394 16 9040 - 94370 17 8175 - 55794 18 8099 - 76033 Jamel ECLIA methodology Performed By: #### P REGQNT #### [facility] [address] [place] [address] Dr. Valeria Farris HCG-BETA SUBUNIT QUANTon hCG,Beta Subunit,Qnt,Serum 65 mIU/mL Normal [facility] Comment on above: Result Comment: Fema le (Non-) 0 - 5 (Postmenopausal) 0 - 8 . Female () Weeks of Gestation 3 6 - 71 4 10 - 750 5 217 - 7138 6 158 - 24895 7 3697 -699683 8 36256 -307389 9 62755 -092491 10 43111 -724104 12 06307 -710134 14 25416 - 63907 15 02486 - 98239 16 9040 - 30327 17 8175 - 50248 18 8099 - 58676 Jamel ECLIA methodology Performed By: #### U DAPHNE LANDEROS #### [facility] [address] [place] [address] Dr. Valeria Farris HCG-BETA SUBUNIT QUANTon hCG,Beta Subunit,Qnt,Serum 18 mIU/mL Normal [facility] Comment on above: Result Comment: Fema le (Non-) 0 - 5 (Postmenopausal) 0 - 8 . Female () Weeks of Gestation 3 6 - 71 4 10 - 750 5 217 - 7138 6 158 - 04317 7 3697 -721900 8 22672 -017380 9 75105 -242821 10 90724 422107 12 74845 931523 14 64655 - 43063 15 50768 - 66662 16 9040 - 07999 17 8175 - 57803 18 8099 - 05293 Jamel ECLIA methodology Performed By: #### G LU1HR #### [facility] [address] [place] [address] Dr. Valeria Farris PREG QUANT HCGon 10-05-2021 HCG QUANT <1 Normal [facility] Comment on above: Performed By: #### P REGQNT #### [facility] [address] [address] [address] Valeria Farris HCG RANGE SEE BELOW Normal [facility] Comment on above: Result Comment: 5-50 0-1 WEEK 40-300 1-2 WEEKS 100-1,000 2-3 WEEKS 500-6,000 3-4 WEEKS 5,000-200,000 1-2 MONTHS 10,000-100,000 2-3 MONTHS 3,000-50,000 2ND TRIMESTER 1,000-50,000 3RD TRIMESTER Performed By: #### P REGQNT #### [facility] [address] [place] [address] Dr. Valeria Farris FREE T4on 09-12-2021 Free T4 [Mass/Vol] 0.88 ng/dL Normal 0.76-1.46 [facility] Comment on above: Performed By: #### P REGQNT #### [facility] [address] [place] [address] Dr. Valeria Farris TSHon 09-12-2021 TSH 1.564 uIU/mL Normal 0.358-3.740 [facility] Comment on above: Performed By: #### [id number] #### [facility] [address] [address] [address] Valeria Farris TSH RANGE SEE BELOW Normal [facility] Comment on above: Result Comment: <0.3 4 UIU/ml HYPERTHYROID 0.34-5.60 UIU/ml EUTHYROID >5.60 UIU/ml HYPOTHYROID Performed By: #### [id number] #### [facility] [address] [place] [address] Dr. Valeria Farris US VENOUS DOPPLER L [...] by: GERARD GONZALEZ Date: 2021-09-12 14:31 Normal [facility] Coding Summaryon 10-16-2020 Coding Summary HTMLBase 64 ZnknrtqsPGx0lHn+PGhlYWQ+ YH2IDZXeI16wmJCvxG4CS6wS ZY0XCZRCKVJHXC4ZXN6dgFM0 AHdqB6FfltMd RpqcwYExTE21ITd3NMH6ePtt NWlloO2iaHSuP2a7DbKxKZ83 gJ72USdbIPVeBfV6XeMpomdi bWFy U8vgBnEkvNEsPqh+PHRhYmxl IHdpZHRoPScxMDAlJyBzdHls TM3eKl3yKROnMWNhmUybgFOn OiBj w5uyWQAxNIqyKH7xcVgnZ0Mh wHR4OJWer8i0Wc91jBS+PHRk JGB2hNdrBQedt879OhRxb1bx IDM3 dIEpCUkoNQK5H07as8G0RMMh BASwTZQ9gPJ4jR6ojJfypukr M6YvzMXhQyW1USU6fODhpN1j bGln rcnirY9aSqq+A29RLR2NNSDB CB1YQmh4T6KpFpjyiUF+PC90 DRBnOC69aSYflHWjp9sxpCj6 JzEw PUOnHYF6gXmwRKmix2BsMUKh E52xqYWjg4Z5UIQmcQfqhIBv BeCeqBG8oY7aIKwmkylto2yk dzsn Qgesi3dmkd90iJ33K12rUAgd DQLpYXU6SWXwZARnmNdooh8z tW3cDv6+VIftk3evv5mwjId1 IjIw DXLromNkdUkkZQV5p7LcOj43 Q1PqoYyic6UnDbf2tl44tUSx t0Z2dJE5RMlqSNWuoZ4fMGwj ZnQ6 XRFjKaBneU64pYTpEAxuTj0n tBeirGwxEW1eWCYbonkpJARb fN7tOLRytBUcpFgmMF3pYFHe bjtm t243GyRrYIB3GTLmcLBbU7Vh hE2rVySoNMJrROVdD3NhpGUj UZnqQ205XLogJsH4CCEjswZs Y2Fs YQZjvRnwXpI1r8J0Ak0Vn9Gq wlvkFQJ8OBsvQJX5VkL1ViKo ZpG6L9EhBdr1ULOloLmvTO8n J3Bh EQUbewucfmmnxAY3OIVeUMYl tC23pYZvJJvqSx4uv5Y3w328 WKVaJPSaqI00Fv8nhIliXGVq dCBU bF9oqwtmv0iczqhiGoJxQVPz HZn5QWb8AVMcaMmhYtZoCXO9 NtH6GQT0mHVtmL1piKfanips dG9w Oyc+G72ewC3gRJO0RDR6yiyq WQUiutWrWG03QS44K5EiNekj dGFibGU+QEKaxiHsfLgcUI6p YmFj l3zwa3WeXTxeU9FqGJTnJGzl Bgh6MULzKEL3xGG0hE2iPQVe OKddm2F0yQK0I5UnlmUxbh2x b2xs EOLbVWhtR52tcHWaj7M5DMHa sZR3NMFzkVayJwNhyE67Tha+ ZRTqfEbtx3VfAdacv5xoo2rf dGg9 RiIbILLrhuCjmSjjKDU4q7Ph Co90J58lEScaUPSlDPAbYSCh QMTqaZoriz0ogX8wJa1+PGNv bCB3 hCC1tN0jGNPrTsS8DSjdZ879 PjCrjCSzUlypa5blz2mhrAm5 YvTbBMFsdaPcsOhmJHK7r3Bc Lz48 G09oHFfmJEYjFKKmRQQwNNFa dLcdqr6aqV5iHl6+UD0yt9fv tk46uQ35sAC+XDPvXZC6mOoy PSdw HDDubH3xUXhuEuZ8SPVfLrMz oF09hPKgSUglQs6nlKngvAhr GJ2oUNFqbhjuz658LqMst0hk IDEw tSMeHLrbTBE3Y17um8E8NENl DTZbNMR1kAC1vF7owTmcfibc bGVmdDsgdmVydGljYWwtYWxp Z246 IHRvcDsnPlBhdGllbnQgTmFt ABf5V0QeSqq6QPHgnVvgRM0x rDPoREbeYr3qsSufyWuuVA9m NTBp tnurl933QrWqk3vrMMMrpSRt SLsnBPV5Z28qo1E8RNWkHVXl XEY9jUO6sY6zzHysrvfxbGDv dDsg eqNqiXjnLAlbYIpwR611RZXw mWebGgGficYeYAXnnLW0UZ88 QA80jBAqb4O3lIR3C3SpMGRy bmct fjddtYI6NEDrAENlgO07Xl3d iFjpJr2zTHTsXHI3SPMocVZf W2LmuO8lKcUiHKApTNKoF4Gi eHQt LFkoM491AKjjUtH8QSVoihKh O2DnZPHviNohEzS7p4R1Nu2J N1D3KA88OR34xCJgr6U4bFY0 J3Bh QQLsuhuvmujfaIW1WNNnLYAm qE40Ye2oxTdyIo9pEFLqRSG5 IRQqpRGgO7IiqO3vMnOeKPLr MDAw V5XgxULyWJraU138ETprJfL3 SCPafnMaO5IdVQKeyKkeVgU3 y9R8Ag7OFCb7QM45CC49hXCx c3R5 iWA9V6XzFKKcxulrpiblgHE7 GROcVXOceH67Gq8fqDozGl0v WJOyHRD2QPRvvYEqM6LtmM0p OiAj VTTzVAIiQ9WiyYVcAAhjS960 WYpmDtF1JMFmeuOzM0QyKVDr uZeqRiS7e6D3Ha2IOAKaDS19 IFR5 rCH1HX90TL68U2VdLqqecVAa bGU+PHRhYmxlIHdpZHRoPScx QZUdXdQigNpiDR7eFi8yOKXv LWNv aWvsrJOgRvIwh4rjIDVmDTxu ST3kkMauT3UcfBA0YCXyf6l2 Zg86F34jN0DyzKX+PGNvbCB3 aWR0 dO3xXtOsAwP4JNehA223RpFk sNVsTnyon6sle3qcxOx6NdG0 XIUhbrDwgJtsXZT6n3FfGl03 Y29s IHdpZHRoPSIxNSUiIHZhbGln uy6ezN6fBy9+ZCHvkVT7aTH4 xE8dFqLnWfE4UMtbF895OrAk cCIv Qlmcb8lvt3oxfYa6ApOqCXBo ekAqwNkdXLV5y6HgAv11U5Ta oOvvx0IxLwh1by01aIXwe3O2 bGU9 Y7JmVWAmkqurjHAkxHudMW6e XJHwlspxBGXlfL6cSGNkV9e4 PsFpUhB4NTgrD1JlkbH6YUJl cHQg KGmdORU3Y35eh3Q0KEZzHBJf NJQ1uBI9xM8uqIgeevebsKVk zHmoydOstApkMXxeNAkdI971 IHRv nEtuPROckN6wZHPgwJTovKel CN4aELPsirqgToHJUtVFAfPU LCBNRUdBTiBNQVJJRTwvdGQ+ PHRk DNE1lYyhJRauJDUoiA0xWMDu B0b4JdMrQwN8SMywO4DlIMYi wbfeNs77cX3cZhDgBoT2PSio O2Zv boD2GLHziAKbGEgjQDV0R97z h7O1YFXhKGWcXGR6jKS8mK0u bGlnbjogbGVmdDsgdmVydGlj YWwt IXssL427NMXdgGfrZdBmCzV8 OnR6VHH3T6JbIqm8OQIiyDyd MV7bmHZzAIkdQm4emMtnqBrr MC4w RUXkqidzKTSrhB9jJIZseIWn gZggII6tNWRooxspq216LvUc CRP3MWIxhFSpS0BdmZ3aJiYx MDAw MCNtP5UitLMfLSboD807UBvh BuO0WDIvgxUbA5HpLZArbXwr BmA7l0V4Eg6uSWVBJJBcywpm dGQ+ QGTuEVT9yFxcMIrsDWEbkT7r TAGmX4c3BxXrElG1LImkR8Wo MJMvgcvrNx72qP1lFxMbUfZ5 MGlu I0JokxT8EGRtmALeSRzrBBC5 F74ar4J8YTRzXBYlQNX7eFA8 sK5rxIhuftmgkOYfiPtjgrOq dGlj NXwqRYbmQ448FDMiqRzeUnLJ TUFMRTwvdGQ+ORVgCHT9bCuk IJgdFXTzsV8hELTeS4z0IcJk LjA1 MSlgC6FePIJstyfnWm29bZ8b NoHnTkC7OFtmH0BlpyU4IJFq fNAgHVqdJZF1J86xz9O9LCNd MDAw HYL1nYD9jJ8brGtoynjgqQNa aEwsraCnhIgeNNyxFMbkW741 XUYjaQjmRe3QQL57SZ73M8Aa Pjwv dGFibGU+PHRhYmxlIHdpZHRo CNugFZReJlMmhAmqYL0wWw1g PWKcINYjmKanrEFgGkMpn0um YXBz WCjqHD5jdCmiZ8SydFJ2BOPe f9h3Td78E37pI3GwoER+PGNv bFY5tKK8iS3iSiYqZdU6ARaz Z249 IyWubRLdZwmqr1glo2brsTr1 VaXhWYIjoyRdtPprZYE9n4Mp Sw99M69zVXbxXFPgLKUtVTZf IHZh gQhlpf9qwQ6fZx3+PGNvbCB3 jIM6bH2jCmSxMwR1GOfxE124 CwNvhBPtBximN48vC2XnsGM+ PHRy Xli0DXBihIqnME2xxQWfWTvn Yh1oKXF0RoHqErRfXVrcN8Gj AXWcptqqlegevZI4RITiUDDj aW47 Kv2eiBrzTg6rOCPrQFM2UKTw qEAuG0NesM7zNlMqZMNqXXHy A5DdsPKcTJcqQ380OSiwUdB1 IHZl xiIjG6QxPLOxuIyzRiF7k9K3 Or9UrIwgeNDdBK1aXdSyDPl8 P0YnPwb0RHZznUonVW6krRUn ZGlu Gl7woBtyqHgmGW0rJIWaslfe e092HtXcw9bsNDRksXIcNVkr ADG2K37dp3A7LMWaOUBtESU6 dGV4 vD2kxUpfvtjkaETlnAqcrrQq iXtsSEkkWFvtA812FWFigKbj UiMMRkm9Z0WzSyw6IEQscBnp ZT0n hMImIKaeWe4peKranKjmVI5u POGvievwu809GwQla8hhMUXj eQPbMKugCPI4Y63xk4V4VAGk MDAw LIX0yMP3wD5cfRocliwyfREy mWnogcRncDpgZHxhAZnhC603 EOVpfFllRr3CMml4S6OjHzw7 ZCBz kUzdFM2qoNWfJTvzOq5wqNle uGcvNR4bNXFahcggj354UsBp y6khEJArqZHwWKfgSLK3H62n b3I6 RRFqZYGdQLW5xKM0tZ8jyLvs bjogbGVmdDsgdmVydGljYWwt ODdqT015RCDowPbiMxJslFLn Ojwv dGQ+FK05fl12S0KhQldwAsj3 NHWbMRZ1zGP2qR3bCHOdTRtb i7V6rDA2N8GqpgHywh6xw5sx YXBz ZTo (more content not included)... [facility] Coding Summary HTMLBase 64 NuwktjovAGm6cIq+PGhlYWQ+ BC8EAIFyK85leHPqrK9BX3jK YV2JWHMNNUUJZZ6PHG6lnAU1 ULsfU6RnfoRf HcwkmNCnBZ56VOm8YCY4pLzg HUeudN9vcFXnQ6f5LnXeHF86 nO57RLpbPOOzIfJ6MuRrdere bWFy Q2ovJhQfyDTpMjh+PHRhYmxl IHdpZHRoPScxMDAlJyBzdHls TQ2kTi6oTMTeDQNeuOmmzGTm OiBj z0vaQKCeQKipJE8zvFfjE3Hk zLI5LTDyi8t7Of61jGL+PHRk QSO6vYrnTBqma564AvCgn8da IDM3 nRJmCFopNZB9P57hz4A8RGWc LBFxNCZ7yZV0iR1mwHmivglh P7VyzQGlNcX3YCA3nPJleA4b bGln emldoF9dQws+K06WLQ8ZRJDB UZ5RBem0Q7EgKladgWV+PC90 OTCrFC72dLDilZLpa6lovAs4 JzEw FRSwDIW3oXzaRUjyf4QyGYEs R40acUYxj6F5MYGmpXpbiPPi SaFrwBZ5uU0hSXxrefgxg4ws dzsn Bnayv0ugxw96iT00W05pXDzg RYGtQIP2BCUvWJItbWmyea7c sB2zXh6+ALsah1sln0ulsZb2 IjIw GAJqjhHqrSuzDTY5t5FkUz16 Z1EerGvls5PaJmj1qv80jAJy r7P7kIH3QRiuHUVxuE0dFEhx ZnQ6 LXAfPkNrwT71aOAmRLrtUf3y eRjtpIpcBJ3wCDWvavwdJXAk cM6oFLMqkSOrdVjoZH0dGNWm bjtm s911TeAaXZO2VTHrdXSrC7Sz lV6sMdIoFQGcQZXlP6XejEDu KQaoM530EQavIfF4UGFdrdIb Y2Fs RQEqrTmoOiI2o6W8Dp8Ml8Dy ignoBSO8LJygMHP1WfU3KuTc YhN8H3CjYdk1AXQwwNxxEM9b J3Bh IWNousxotbdvhGR4PEOgBYIj yQ47uBVgOJgyIr2tq0I5r917 RKSzPRNrkQ17Wq8pvJpgNEMo dCBU wA8ioelrb7exqeulPaNpJNLl EOg9HBa9TEBwiKdxRnNnXTN2 AnH9FMM8oJMzdY6oeAlyjgwv dG9w Oyc+V52pqH1aTUQ5ZDL9jzrd KGCzwgBcUM71FP85M7PkKekc dGFibGU+KAMjnjZvkIjcIA0p YmFj k1rpd8UmCKpvY9BiYPBcMUzm Jbb9GREgNHC1tLR2aK7iFBLk MYebv3Y2hRW2V1YgptIsks3c b2xs XSRoXTyrJ25nkDLar0K8NNAd pUJ2XXUasKpoQwTotD22Rcf+ ATWutXcpo9KiZuiyd4vgv5iq dGg9 WgUnVFZkyeKghNeeRRT1r9Jf Zl43L31tVOsxRHKdEJVuGHXx QHUyjWwrws0hoZ2kMi6+PGNv bCB3 nAG5bZ6uXFYaVlN4QIiaI540 NuAhbFMzKdove5eit4vvtQl9 FsYfUVIrksOdbRluUXF2z8Rh Lz48 O79iELhaJQDoVLAsFWFcTKAk uIfcdx7ltY3tTi0+BN6ir3wz be84kX20oTE+NHHjHXM7yQmp PSdw APTetQ9sLWwmAqK5UZSpAfRk kD79sZOcLMrtGu7hgShdzNdq YO9hMDScpmrbj387GhHro2uy IDEw vYMiOVxeFFS4H57pt6E7EGBd MQAfPTK7nXL4vT4neWowhjfz bGVmdDsgdmVydGljYWwtYWxp Z246 IHRvcDsnPlBhdGllbnQgTmFt SMw8V0QkGat2MRIiwEzeWP0q vPDwSHphFs5lyKejzHjpPK4a NTBp bmokt507WfMrh5mbQPDybWPy IItmPIX9Z54xn0K0VJPaJKUb KPU1tUR9oL1vkGrwjlkvvNFq dDsg tqRdoCsqRQfsKFwnR957FOJk hVuoBcGffyWeCWAcbKM1PJ98 LB40tWJzo7B5hDE2O1CkTTYx bmct wmolkQE7PAHoNXRlyD70Yn1c yNslMr7hZMEmKMV8UWSrrMJt M0MsbR5aCrOrKIIvPYZhI0Te eHQt KAheC367ITtgJpT5JUGzyfTa R1DcWTMauGhmAyX8e6U6Dy1G H4O9UD21EL90aOFnq5Z5xYR5 J3Bh BTZuwhggpojurGJ2COOvXAYa oK77Aj0aaZrkQp4vJQJpSVQ4 PHWiaOBdH3ClbI4wCmBfVFLy MDAw P9AkaBFyHAehJ670DWkbZiZ8 GAQyrxFfE2YuEIOfyWimTbQ3 e0V0Ux7QOWj7WD99PH12dXAe c3R5 wAI9M5FjWARziseomxmjgTK4 PNAvVFBisA57Dm3xbImePo8n OZQpDWY4RYXmqORkB8YmxY4s OiAj OAXkDNGtA8MsbIYoBDaoJ463 OYtcPmC4KIMyvnTuK4ToYJHj uRzsLpN8f5I8Fw0RHJEoZB12 IFR5 mHB6ED50OP00J5NxLsapoFSu bGU+PHRhYmxlIHdpZHRoPScx KGPiHxFtpVnnDR7jSe5xEYAp LWNv nTvzzBHlMjYmj1rsOXSuIWaw FW8fkIqrW5UuhKR0SINso3u7 Bb75O96lO4PbkWW+PGNvbCB3 aWR0 fM4pZnCzVoH1AUomP821LlWe kIWeFpptf7wml2tmlBs0DfD8 UOZlpvJjdUorXME0v5TkJm16 Y29s IHdpZHRoPSIxNSUiIHZhbGln wo1wlB7tTd0+VOYcrKR2xWM2 tW1uTqJnRqB9UBoeF185IsKf cCIv Boxyh2zaq9ydxYd4GgLeWMUs mdMzcXddPBG2q4QnWz76E1Mv hLjar0MsMim8dl84xDOmx3T6 bGU9 B9FnAEQbbvlhhVPfwSvcZE3d IXItnlyzEBOzpL6sUTEsV6j8 SmUpYpQ9RAzdT2DpveD9CYWm cHQg WUhvBRD3L16zg8N5SXCtQOBp YHI8kYH2uE1gkBhqshkezNQv aRzbxfBayCdzSLhxUTvrP568 IHRv dEfbYUHazW2oLIFvaMQagDer IA7jPWFeozrjUpWDQkEZLbDJ LCBNRUdBTiBNQVJJRTwvdGQ+ PHRk KEM7eHsxZMapUYAeqY3tQYVq S1a2MrKbYmJ0MRmdI2JcMMAb rjmiGf14jG9eDeNiJwA5YCyo O2Zv dxG9SAGnxUTuODrcRFM5V56d g7O6RIMpGYLvJAK4bKH8bL3b bGlnbjogbGVmdDsgdmVydGlj YWwt XZpyD449BRMsaVjgRzVyPnV0 LuT4DZT7U6VaClo3SWJptGem XD9wmNNxDBspVi4fcYdonDaw MC4w PUUojymgRTOetO6jOSHpcSTg bYtpVS5xKMXiuzinj484AgSb FLB6RILwzOJoM9OiyQ8qShUj MDAw XSPvC2YhjIQkZKrzC296KZdw BwN5MKFjqbFtZ1CsSGPpfDiw FqB3k4W1Ys7aHAZMLLVfupcv dGQ+ GVGuIYB3vBnlXCxpRPUswW5u OXQtW4k5TtSmLtX1KPchA8Cs JCVxxotzTn03tU6lJfMwZoP4 MGlu A5NzrqN7GVLwoZSsHRyiOWM0 V83wu4T1FCGpOKDsVHB7jAO1 sY2raDwfsttaqGUwpNicurFt dGlj ETjtNSipB355HGCpaHsjXnKT TUFMRTwvdGQ+ZZCgNDH2yQap VEkoJSIpmQ2pJOStS8a6YjNo LjA1 BCsjQ9NgRLEqaefhQu95fJ7v FlDbRlC6DPtdA0IbclE5CGTh kBDkJKuoMBM4F62fl6Z8PEUp MDAw BHG5sVM4kU5qbKdnapcjjCQi hYoyovOovNluLGxsBUfaZ642 GALzoSxaGeNrTDEiDE1zdVfk dGQ+ JW78nt67B2NfSsqxWjb7QNLc MBH2yAG4vR0hSMNhJVlzv8Z5 cRG4H4IclcBshm1lo5acWTUv ZTog E23uzRAzs6T5OXLcfAA5UVZr sQnvIiQdaC62Etk+PGNvbGdy c6CfSkvwd4mwx9tapGu4YlJt JSIg zcDszKioQXD6s9WvVp45B07t IHdpZHRoPSIzMCUiIHZhbGln ub1qeO7lGl1+PCWuyQM3jFJ2 aD0i NnGbKdQ0TSlbZ270QeFguCEc Ouzde4qmw9bxrCi8OiZxQGDn maXhyLioUQO1e4JbAp65X8Oy bGdy t1HnUmy5oo64oUYpw1E9jKX0 R4YpJGVoyihlhGGlhOkdMB4l OXAfgficGBXtfA5eWVUuJ5z5 OiAw RzL3JDznH7FqifO1ADOelPXi RTNxtNIPsP6usfoke9nvitvb LcLsQGCsMEn1CGg9EILfoQzf OiBs MVV8InN7LBF5iOQsiU7osEoh ihmxzO3sHnb+GBc9b2dneWZo CQ9urUJ3IF24PY14sYCul9V4 bGU9 U1SrBAFhuhtwcfnxjDI1YUUo WBIuhV39Ys1ytZomVe1fAYVw TID2RIWekDKgZ6LhiB1xVdNk MDAw ANPcM1EzgWDaSSwyR145NSrd GnX1RGFskwCdE2BbHGSzrOul UsS8o6E1Kl6IJU27VB29BT41 dGQg v6G0gFO9C2CsQACqaoxdtyjh dSO6DHIxILMuyS87Ih7xnLsm Zt2mUVMpBYN6HWCfeQHwZ1Bd bG9y YdHsZGIcODXhM4DilDSqFYxm P520EIpjFfC9WHQhcnUtG3Vd FRJmrYkvNvF7d3P7Ht7PBh46 PC90 XV04uWQaw9S4dSW3F5UbLEJy oziucceinOJ3EQMjDFJhcV49 Oi6kwNfoTe9nLBNuAFB0MBNd bWVz T6GrrV9dVqAzLTEpHSRzB3Kt nHIwUNnbM975RBqgPcU6XYFh feHoD5UqZTKpaCivUsJ1b4R6 Jz5Q UUlgycm7P9YzJixcpZS+PC90 DPRbNB46vLQztGPva9ndzWh5 NiLkUGWdSWO1rGczUVjbj8Yq ZXIt Y29 (more content not included)... Normal [facility] .Auto Diff 10-11-2020 Auto [place] % 6 % Normal 12 [facility] Comment on above: Performed By: #### 7 574314, [id number], [id number], [id number] ####[facility] (DEFAULT)[address] [place] [address] 98704 Baso Abs# 0.0 x10 Normal 0.0-0.2 [facility] Comment on above: Performed By: #### 7 120475, [id number], 86723254, [id number] ####[facility] (DEFAULT)[address] [place] [address] 96642 Basophils/100 WBC (Bld) 0.3 % Normal 0.2-2.0 [facility] Comment on above: Performed By: #### 7 208782, [id number], 89231113, [id number] ####[facility] (DEFAULT)[address] [place] [address] 31815 Eos Abs# 0.2 x10 Normal 0.0-0.4 [facility] Comment on above: Performed By: #### 7 173768, [id number], 97101525, [id number] ####[facility] (DEFAULT)[address] [place] [address] 90703 Eosinophils/100 WBC (Bld) 3.4 % Normal 0.9-4.0 [facility] Comment on above: Performed By: #### 7 093223, [id number], 64425633, [id number] ####[facility] (DEFAULT)[address] [place] [address] Lymph Abs# 2.5 x10 Normal 1.3-2.9 [facility] Comment on above: Performed By: #### 7 699616, [id number], 62823937, [id number] ####[facility] (DEFAULT)[address] [place] [address] Lymphocytes/100 WBC (Bld) 41 % Normal 14-48 [facility] Comment on above: Performed By: #### 7 663611, [id number], 07574863, [id number] ####[facility] (DEFAULT)[address] [place] [address] [place] Abs# 0.4 x10 Normal 0.0-0.8 [facility] Comment on above: Performed By: #### 7 461771, [id number], 19100164, [id number] ####[facility] (DEFAULT)[address] [place] [address] Neut Abs# 3.0 x10 Normal 1.5-9.2 [facility] Comment on above: Performed By: #### 7 642959, [id number], 07802036, [id number] ####[facility] (DEFAULT)[address] [place] [address] Neutrophils/100 WBC (Bld) 50 % Normal 44-88 [facility] Comment on above: Performed By: #### 7 776955, [id number], 55071517, [id number] ####[facility] (DEFAULT)[address] [place] [address] CBC w/ Auto Diffon Erythrocyte distribution width (RBC) [Ratio] 13.2 % Normal 11.5-15.0 [facility] Comment on above: Performed By: #### 7 909422, [id number], 20583251, [id number] #### [facility] (DEFAULT) [address] [place] [address] Hematocrit (Bld) [Volume fraction] 36.8 % Normal 33.7-40.4 [facility] Comment on above: Performed By: #### 7 905010, 8910052734, 18349459, [id number] #### [facility] (DEFAULT) [address] [place] [address] 53977 Hemoglobin (Bld) [Mass/Vol] 12.4 g/dL Normal 11.3-15.9 [facility] Comment on above: Performed By: #### 7 092235, [id number], 53839806, [id number] #### [facility] (DEFAULT) [address] [place] [address] 01169 Instr WBC 6.1 x10 Invalid Interpretation Code [facility] Comment on above: Performed By: #### 7 864794, [id number], 92273949, [id number] #### [facility] (DEFAULT) [address] [place] [address] 20096 Man Diff? Auto Normal [facility] Comment on above: Performed By: #### 7 457835, [id number], 63097935, [id number] #### [facility] (DEFAULT) [address] [place] [address] 57426 MCH (RBC) [Entitic mass] 29 pg Normal 24-34 [facility] Comment on above: Performed By: #### 7 705669, [id number], 25687158, [id number] #### [facility] (DEFAULT) [address] [place] [address] 72992 MCHC (RBC) [Mass/Vol] 34 g/dL Normal 26-37 [facility] Comment on above: Performed By: #### 7 773734, [id number], 52339021, [id number] #### [facility] (DEFAULT) [address] [place] [address] 04963 MCV (RBC) [Entitic vol] 87 fL Normal 81-100 [facility] Comment on above: Performed By: #### 7 508251, [id number], 92977206, [id number] #### [facility] (DEFAULT) [address] [place] [address] 29692 Platelet 204 x10 Normal 138-427 [facility] Comment on above: Performed By: #### 7 921488, 8733052278, 03732550, [id number] #### [facility] (DEFAULT) [address] [place] [address] 12057 Platelet mean volume (Bld) [Entitic vol] 9.6 fL Normal 6.3-10.2 [facility] Comment on above: Performed By: #### 7 934974, 2279007438, 13742990, [id number] #### [facility] (DEFAULT) [address] [place] [address] 97571 RBC 4.25 x10 Normal 3.70-5.30 [facility] Comment on above: Performed By: #### 7 933257, 4426915190, 53528985, [id number] #### [facility] (DEFAULT) [address] [place] [address] 65715 WBC 6.1 x10 Normal 3.5-10.5 [facility] Comment on above: Performed By: #### 7 697883, 7195571558, 56157171, 5700481650 #### [facility] (DEFAULT) [address] [place] [address] 45335 CMP Standardon 10-11-2020 Albumin [Mass/Vol] 3.9 g/dL Normal 3.5-5.0 [facility] Comment on above: Performed By: #### 7 322016, [id number], 87295688, [id number] ####[facility] (DEFAULT)[address] [place] [address] 36939 Albumin/Globulin [Mass ratio] 1.3 {ratio} Low 1.4-2.6 [facility] Comment on above: Performed By: #### 7 125381, [id number], 09643295, [id number] ####[facility] (DEFAULT)[address] [place] [address] 05840 Alk Phos 67 IU/L Normal 32-91 [facility] Comment on above: Performed By: #### 7 895902, [id number], 00107823, [id number] ####[facility] (DEFAULT)[address] [place] [address] 73599 ALT [Catalytic activity/Vol] 28.0 U/L Normal 14.0-54.0 [facility] Comment on above: Performed By: #### 7 151365, 2296983727, 31214879, 9633454785 ####[facility] (DEFAULT)[address] [place] [address] 38159 Anion gap [Moles/Vol] 14.0 mmol/L Normal 5.0-19.0 [facility] Comment on above: Performed By: #### 7 021039, 1133875001, 71448237, [id number] ####[facility] (DEFAULT)[address] [place] [address] 38465 AST [Catalytic activity/Vol] 16 U/L Normal 15-41 [facility] Comment on above: Performed By: #### 7 383829, [id number], 72110306, 2959569387 ####[facility] (DEFAULT)[address] [place] [address] 11493 Bili Total 0.3 mg/dL Normal 0.3-1.2 [facility] Comment on above: Performed By: #### 7 839308, 9703157095, 54047971, 5958171925 ####[facility] (DEFAULT)[address] [place] [address] 00371 Calcium [Mass/Vol] 9.0 mg/dL Normal 8.9-10.3 [facility] Comment on above: Performed By: #### 7 365379, 6178684046, 49916102, 9017836205 ####[facility] (DEFAULT)[address] [place] [address] 38964 Chloride [Moles/Vol] 109 mmol/L Normal 101-111 [facility] Comment on above: Performed By: #### 7 550766, 0260242727, 25974340, [id number] ####[facility] (DEFAULT)[address] [place] [address] 93115 CO2 [Moles/Vol] 21 mmol/L Normal 21-32 [facility] Comment on above: Performed By: #### 7 163247, 1921400728, 09515309, 4455808655 ####[facility] (DEFAULT)[address] [place] [address] 68915 Creatinine [Mass/Vol] 0.90 mg/dL Normal 0.60-1.30 [facility] Comment on above: Performed By: #### 7 633549, 9194309683, 77149456, 9056682636 ####[facility] (DEFAULT)[address] [place] [address] 92563 Globulin (S) [Mass/Vol] 3.1 g/dL Normal 1.5-4.3 [facility] Comment on above: Performed By: #### 7 054116, 1727610766, 04074053, 6627120156 ####[facility] (DEFAULT)[address] [place] [address] 42089 Glucose [Mass/Vol] 95.0 mg/dL Normal 74.0-118.0 [facility] Comment on above: Performed By: #### 7 508664, 9678500289, 77888807, 1826841377 ####[facility] (DEFAULT)[address] [place] [address] 77574 Osmolality 282 mOsm/L Invalid Interpretation Code [facility] Comment on above: Performed By: #### 7 673104, [id number], 76327321, [id number] ####[facility] (DEFAULT)[address] [place] [address] 33008 Potassium [Moles/Vol] 4.0 mmol/L Normal 3.6-5.1 [facility] Comment on above: Performed By: #### 7 413893, 3241018228, 90175849, [id number] ####[facility] (DEFAULT)[address] [place] [address] 48871 Protein [Mass/Vol] 7.0 g/dL Normal 6.5-8.1 [facility] Comment on above: Performed By: #### 7 224528, 0979282823, 74939163, 7980084010 ####[facility] (DEFAULT)[address] [place] [address] 98453 Sodium [Moles/Vol] 140.0 mmol/L Normal 136.0-144.0 [facility] Comment on above: Performed By: #### 7 756199, 5423191245, 02617617, [id number] ####[facility] (DEFAULT)[address] [place] [address] 69712 Urea nitrogen [Mass/Vol] 20 mg/dL Normal 8- [facility] Comment on above: Performed By: #### 7 153858, 4770068593, 15511702, 9583752963 ####[facility] (DEFAULT)[address] [place] [address] 73044 Urea nitrogen/Creatinine [Mass ratio] 22.2 mg/mg High 4.6-16.2 [facility] Comment on above: Performed By: #### 7 252683, 3934018849, 42145341, [id number] ####[facility] (DEFAULT)[address] [place] [address] 21619 Discharge Instructionson Discharge Instructions [id number] TIFF Normal [facility] ED Clinical Summaryon 2020 ED Clinical Summary [facility] - Emergency Department [address] [place], [place] [id number] ED Clinical Summary PERSON INFORMATION Name: YANI WOODY Age: 30 Years Sex: FEMALE : 1990 MRN: Acct#: Visit Reason: Pelvic pain; PELVIC AREA PAIN Arrival: 10/11/2020 09:15:57 Discharge: 10/11/2020 12:33:00 LOS: 000 03:18 Check In: 10/11/2020 09:15:57 Checkout:10/11/2020 12:33:00 Address: [address] [place] [address] PCP: Provider, None PROVIDER INFORMATION Provider Role Assigned Unassigned DAVID GALVAN ED PA 10/11/2020 09:24:51 Linn Decker SENIOR ACCOUNTS PAYABLE SPECIALIST Nurse 10/11/2020 09:28:06 Kristi Case SENIOR ACCOUNTS PAYABLE SPECIALIST Nurse 10/11/2020 11:45:12 VITALS INFORMATION Vital Sign [...] test which were negative. She contacted her deicer element winder machine who indicated he could not see her [...] - pharynx pink and moist. NECK: -Supple ([id number]-gi-[id number]): non-tender. CARD: -Rate and rhythm: Regular -Edema: No -Calf pain: No RESP: -Respiratory effort and chest excursion with respirations: Normal -Breath sounds equal bilaterally: Clear -Wheezes: No -Rales: No BACK: -Signs of pain with movement: No ABD: -Distended: No -Bruits: No -Bowel sounds: Normal. -Deep palpation: Non-tender, soft, no guarding or r (more content not included)... Normal [facility] ED Note - Physicianon 2020 ED Note - Physician Patient: Aquiles WOODY Age: 30 years Sex: FEMALE : [...] test which were negative. She contacted her deicer element winder machine who indicated he could not see her [...] - pharynx pink and moist. NECK: -Supple (spxu-ba-ufmtq): non-tender. CARD: -Rate and rhythm: Regular -Edema: [...] I r (more content not included)... Normal [facility] ED Note-Nursingon 10-11-2020 ED Note-Nursing [facility] ED via private car with c/o right [...] within reach. Will continue to monitor. Normal [facility] ED Patient Summaryon 021 ED Patient Summary [facility] - Emergency Department [address] [place] [address] PATIENT DISCHARGE INSTRUCTIONS Patient Information Name: YANI WOODY Age: 30 Years Date of : 1990 Reason For Visit: Pelvic pain; PELVIC AREA PAIN Arrival Time: 10/11/2020 09:15:57 Primary Care Physician: Provider, None Attending Physician: Linus Neumann MD Comment: Visit Diagnosis: Diagnoses This Visit Ovarian cyst (N83.209) Pelvic congestion syndrome (N94.89) Pelvic pain ([id number]) Prescription Information: If you have been given a prescription for narcotics, seek immediate medical attention if you have any difficulty breathing or any sudden status changes such as confusion and sleepiness. If you or anyone you know is experiencing suicidal thoughts, mental health, alcohol and/or drug addiction problems; contact the [facility] 13/11 Crisis Hotline -Text 4HQFG to 933984. If you received any narcotics, sedation, or [...] legal documents With: Address: When: Cordelia Donahue [address] [place], [place] [id number] [employer] (1) Within 2 to 4 days Comments: Follow-up with deicer element winder machine in the next few days for reevaluation. Return at anytime for reevaluation or if you have worsening symptoms, vaginal bleeding, chest pains, shortness of breath or any other problems. Continue to stay hydrated. Medication Information: The exam and treatment you received today in the [facility] Department were for an urgent problem and are not intended as complete care. It is important for you to follow up with a doctor, nurse practitioner, or physician?s lpn medical assistant for ongoing care. If your symptoms [...] so we can reach you if necessary. [facility] Emergency Department has provided you with a complete list of medications post discharge. Please inform your bar steward/provider of your visit and for further instruction [...] Image. Unabl (more content not included)... Normal [facility] Extra Greenon 10-11-2020 Tube Collected Yes Invalid Interpretation Code [facility] Comment on above: Performed By: #### 7 [id number], [id number] #### [facility] (DEFAULT) [address] [place] [address] 37791 Lactic Acidon 10-11-2020 Lactic Acid 12.4 mg/dL Normal 4.5-19.8 [facility] Comment on above: Performed By: #### 2 [id number] ####[facility] (DEFAULT)[address] [place] [address] 40739 Test Urine 1on U Preg Negative [facility] Comment on above: Performed By: #### 3 [id number] ####[facility] (DEFAULT)[address] [place] [address] 87949 U Preg Internal Control Pass [facility] Comment on above: Performed By: #### 3 [id number] ####[facility] (DEFAULT)[address] [place] [address] 06202 UA Rjybl1un 10-11-2020 UA Bacteria Rare [facility] Comment on above: Performed By: #### 2 [id number] ####[facility] (DEFAULT)[address] [place] [address] 12368 UA RBC 0-2 [facility] Comment on above: Performed By: #### 2 [id number] ####[facility] (DEFAULT)[address] [place] [address] 04809 UA Squam Epi Few [facility] Comment on above: Performed By: #### 2 [id number], [id number] ####[facility] (DEFAULT)[address] [place] [address] 06073 UA WBC 0-2 [facility] Comment on above: Performed By: #### 2 [id number], [id number] ####[facility] (DEFAULT)[address] [place] [address] 55782 UA w Micro, if Ind Standardo n 10-11-2020 Micro? Indicated [facility] Comment on above: Performed By: #### 2 [id number], [id number] ####[facility] (DEFAULT)[address] [place] [address] 38698 Breakpoint UA Normal [facility] Comment on above: Performed By: #### 2 [id number], [id number] ####[facility] (DEFAULT)[address] [place] [address] 75935 Color (U) Yellow Normal [facility] Comment on above: Performed By: #### 2 [id number], [id number] ####[facility] (DEFAULT)[address] [place] [address] 77229 Glucose (U) [Mass/Vol] Negative Normal [facility] Comment on above: Performed By: #### 2 [id number], [id number] ####[facility] (DEFAULT)[address] [place] [address] 34083 Ketones Ql (U) Negative Normal [facility] Comment on above: Performed By: #### 2 [id number], [id number] ####[facility] (DEFAULT)[address] [place] [address] 30534 UA Bilirubin Negative Normal [facility] Comment on above: Performed By: #### 2 [id number], [id number] ####[facility] (DEFAULT)[address] [place] [address] 47203 UA Blood TRACE Abnormal NEGATIVE [facility] Comment on above: Performed By: #### 2 [id number], [id number] ####[facility] (DEFAULT)[address] [place] [address] 52794 UA Clarity CLEAR Normal CLEAR [facility] Comment on above: Performed By: #### 2 [id number], [id number] ####[facility] (DEFAULT)[address] [place] [address] 06319 UA Leuk Est Negative Normal NEGATIVE [facility] Comment on above: Performed By: #### 2 [id number], [id number] ####[facility] (DEFAULT)[address] [place] [address] 86835 UA Nitrite Negative Normal NEGATIVE [facility] Comment on above: Performed By: #### 2 [id number], [id number] ####[facility] (DEFAULT)[address] [place] [address] UA pH 6.0 Normal 5-8 [facility] Comment on above: Performed By: #### 2 [id number], [id number] ####[facility] (DEFAULT)[address] [place] [address] UA Protein Negative Normal NEGATIVE [facility] Comment on above: Performed By: #### 2 [id number], [id number] ####[facility] (DEFAULT)[address] [place] [address] UA Spec Grav 1.025 Normal 1.001-1.035 [facility] Comment on above: Performed By: #### 2 [id number], [id number] ####[facility] (DEFAULT)[address] [place] [address] 50109 UA Urobilinogen 0.2 mg/dL Normal 0.2-1.0 [facility] Comment on above: Performed By: #### 2 [id number], [id number] ####[facility] (DEFAULT)[address] [place] [address] 69484 Urine Source Clean Catch Normal [facility] Comment on above: Performed By: #### 2 [id number], [id number] ####[facility] (DEFAULT)[address] [place] [address] 84412 US Pelvis Non-OB Completeon 10-11-2020 US Pelvis [...] Dominguez MD 10/11/20 12:29 p Technologist: NATASHA [facility] US Transvaginalon 10-11-2020 US Transvaginal US [...] Dominguez MD 10/11/20 12:29 p Technologist: NATASHA [facility] Video Visit - Telehealtho n 01-28-2020 Video Visit - Telehealth Chief Complaint Medication follow up via [employer] video Subjective Interval History/HPI This visit was conducted via two-way, real-time interactive video communications from my office using [employer] due to the restrictions of the COVID-19 pandemic. No physical exam was conducted other than those areas of the body visible to telecommunications with the patient located at [address] [place] [id number], with no one else in attendance. If [...] day(s), # 42 tab(s), Refills(s) 5, Pharmacy: [facility]/pharmacy #[id number], 156, cm, 01/28/20 8:32:00 EDT, Height/Length Dosing, 124, kg, 01/28/20 8:32:00 EDT, Weight Dosing 3. High risk medication use (Z79.899: Other halfway (current) drug therapy) Orders: lamotrigine, 300 mg = 2 tab(s), Oral, Bedtime, # 60 tab(s), Refills(s) 5, [id number] 156, cm, 01/28/20 8:32:00 EDT, Height/Length Dosing, 124, kg, 01/28/20 8:32:00 EDT, Weight Dosing lurasidone, 60 mg = 1 tab(s), Oral, Daily, @supper with food, # 30 tab(s), Refills(s) 5, Pharmacy: [facility]/pharmacy #[id number], 156, cm, 01/28/20 8:32:00 EDT, Height/Length Dosing, 124, kg, 01/28/20 8:32:00 EDT, Weight Dosing metformin, 500 mg = 1 tab(s), Oral, BID, # 60 tab(s), Refills(s) 5, Pharmacy: [facility]/pharmacy #[id number], 156, cm, 01/28/20 8:32:00 EDT, Height/Length Dosing, 124, kg, 01/28/20 8:32:00 EDT, Weight Dosing General Treatment Plan Pharmacological management: Alternative medication plans were discussed with the patient/guardian. All relevant side effects and potenti (more content not included)... Normal [facility] Comment on above: Result Comment: Elec tronically Signed By: TERE TENORIO, Jocelyn\.br\Date and Time Signed: 01/28/20 09:14 EDT Vital Signs Date Time Vital Sign Value Performing Clinician Facility 12-17-2023 13:040 Body height 152.[address] [facility] 12-17-2023 13:040 Body mass index (BMI) [Ratio] 59.5 kg/m2 [facility] 12-17-2023 13:040 Body temperature 97.5 [degF] [facility] 12-17-2023 13:040 Body weight 138.[address] [facility] 12-17-2023 13:04-0400 Diastolic blood pressure 68 mm[Hg] [facility] 12-17-2023 13:04-0400 Heart rate 92 /min [facility] 12-17-2023 13:04-0400 Respiratory rate 18 /min [facility] 12-17-2023 13:04-0400 SaO2% (BldA) [Mass fraction] 95 % [facility] 12-17-2023 13:04-0400 Systolic blood pressure 125 mm[Hg] [facility] 06-29-2023 11:10-0500 Body height 154.9 cm Lindseykojo Mcmahon INSECT CONTROL AIDE-MEDIA SUPERVISOR Work Phone: [facility] 06-29-2023 11:10-0500 Body mass index (BMI) [Ratio] 56.08 kg/m2 Lindseykojo Mcmahon INSECT CONTROL AIDE-MEDIA SUPERVISOR Work Phone: [facility] [employer] [facility] 06-29-2023 11:10-0500 Body weight 134.54 kg Lindseykojo Mcmahon INSECT CONTROL AIDE-MEDIA SUPERVISOR Work Phone: [facility] [employer] [facility] 06-29-2023 11:10-0500 Diastolic blood pressure 84 mm[Hg] Lindsey Mcmahon INSECT CONTROL AIDE-MEDIA SUPERVISOR Work Phone: [facility] [facility] 06-29-2023 11:10-0500 Heart rate 93 /min Lindseykojo Jonesgel INSECT CONTROL AIDE-MEDIA SUPERVISOR Work Phone: [facility] [facility] 06-29-2023 11:10-0500 SaO2% (BldA) [Mass fraction] 95 % Lindsey Mcmahon INSECT CONTROL AIDE-MEDIA SUPERVISOR Work Phone: [facility] 06-29-2023 11:10-0500 Systolic blood pressure 152 mm[Hg] Lindseykjoo Mcmahon INSECT CONTROL AIDE-MEDIA SUPERVISOR Work Phone: [facility] 05-03-2023 13:16-0500 Body mass index (BMI) [Ratio] 54.61 kg/m2 Katerin Haynes INSECT CONTROL AIDE-MEDIA SUPERVISOR Work Phone: [employer] 05-03-2023 13:16-0500 Body weight 131.09 kg Katerin Haynes INSECT CONTROL AIDE-MEDIA SUPERVISOR Work Phone: [employer] 05-03-2023 13:16-0500 Diastolic blood pressure 74 mm[Hg] Katerin Doradoer INSECT CONTROL AIDE-MEDIA SUPERVISOR Work Phone: [employer] 05-03-2023 13:16-0500 Heart rate 88 /min Katerin Doradoer INSECT CONTROL AIDE-MEDIA SUPERVISOR Work Phone: [employer] 05-03-2023 13:16-0500 Respiratory rate 18 /min Katerin Doradoer INSECT CONTROL AIDE-MEDIA SUPERVISOR Work Phone: [employer] 05-03-2023 13:16-0500 SaO2% (BldA) [Mass fraction] 98 % Katerin Doradoer INSECT CONTROL AIDE-MEDIA SUPERVISOR Work Phone: [employer] 05-03-2023 13:16-0500 Systolic blood pressure 126 mm[Hg] Katerin Haynes INSECT CONTROL AIDE-MEDIA SUPERVISOR Work Phone: [employer] 02-05-2023 09:45-0400 Body height 154.94 cm Jovita Divina Other [email or web address] Other 02-05-2023 09:45-0400 Body mass index (BMI) [Ratio] 57.32 kg/m2 Jovita Murcia Other [email or web address] Other 02-05-2023 09:45-0400 Body temperature 98 [degF] Jovita Divina Other [email or web address] Other 02-05-2023 09:45-0400 Body weight 137.62 kg Jovita Murcia Other [email or web address] Other 02-05-2023 09:45-0400 Respiratory rate 18 /min Jovita Murcia Other [facility] [employer] Other 02-05-2023 09:45-0400 SaO2% (BldA) [Mass fraction] 97 % Jovita Murcia Other [email or web address] Other 12-22-2022 09:30-0400 Diastolic blood pressure 96 mm[Hg] MD Aline Villalobos Work Phone: [facility] 12-22-2022 09:30-0400 Heart rate 60 /min MD Aline Villalobos Work Phone: [facility] 12-22-2022 09:30-0400 Respiratory rate 16 /min MD Aline Villalobos Work Phone: [facility] 12-22-2022 09:30-0400 SaO2% (BldA) [Mass fraction] 99 % MD Aline Villalobos Work Phone: [facility] 12-22-2022 09:30-0400 Systolic blood pressure 154 mm[Hg] MD Aline Villalobos Work Phone: [facility] 12-22-2022 08:06-0400 Body height 152.4 cm MD Aline Villalobos Work Phone: [facility] 12-22-2022 08:06-0400 Body weight 137.89 kg MD Aline Villalobos Work Phone: [facility] 07-22-2022 11:35-0400 Respiratory rate 18 /min Inge Mojicaza DO Work Phone: [facility] 07-22-2022 08:00-0400 Body temperature 99 [degF] Inge Piazza DO Work Phone: [facility] 07-22-2022 08:00-0400 Diastolic blood pressure 63 mm[Hg] Inge Causeyazza DO Work Phone: [facility] 07-22-2022 08:00-0400 Heart rate 78 /min Inge Piazza DO Work Phone: [facility] 07-22-2022 08:00-0400 SaO2% (BldA) [Mass fraction] 99 % Inge Leung DO Work Phone: [facility] 07-22-2022 08:00-0400 Systolic blood pressure 137 mm[Hg] Inge Leung DO Work Phone: [facility] 07-18-2022 17:35-0400 Body height 154.94 cm Alesha Cortez Other [email or web address] Other 07-18-2022 17:35-0400 Body mass index (BMI) [Ratio] 62.16 kg/m2 Alesha Cortez Other [email or web address] Other 07-18-2022 17:35-0400 Body temperature 96 [degF] Alesha Zarateler Other [email or web address] Other 07-18-2022 17:35-0400 Body weight 149.23 kg Alesha Cortez Other [email or web address] Other 07-18-2022 17:35-0400 Respiratory rate 18 /min Alesha Cortez Other [email or web address] Other 07-18-2022 17:35-0400 SaO2% (BldA) [Mass fraction] 97 % Alesha Cortez Other [email or web address] Other 07-15-2022 17:16-0400 Diastolic blood pressure 83 mm[Hg] Inge Leung DO Work Phone: [facility] 07-15-2022 17:16-0400 Heart rate 97 /min Inge Leung DO Work Phone: [facility] 07-15-2022 17:16-0400 Respiratory rate 16 /min Inge Leung DO Work Phone: [facility] 07-15-2022 17:16-0400 Systolic blood pressure 142 mm[Hg] Inge Leung DO Work Phone: [facility] 07-15-2022 15:44-0400 Body temperature 98.49 [degF] Inge Leung DO Work Phone: [facility] 03-21-2022 10:30-0500 Body height 154.94 cm Naga Wells Other [email or web address] Other 03-08-2022 02:06-0500 Body weight 141.0696 kg LILIA RUIZ [facility] Comment on above: Performed By: #### UACSTRUPTI, DAPHNE #### [facility] [address] [place] [address] Dr. Valeria Farris Encounters Encounter Date Encounter Type Care Provider Facility Start: 12-31-2023 End: 12-31-2023 ambulatory CLAUDIA VILLAR [facility] Start: 12-29-2023 End: 12-29-2023 Emergency department patient visit [facility] Start: 12-17-2023 End: 12-17-2023 ambulatory [facility] Work Phone: Start: 12-17-2023 End: 12-17-2023 Patient encounter procedure [facility] [place] Work Phone: Start: 12-17-2023 End: 12-17-2023 ambulatory NOAH NICHOLAS Not Available Start: 12-06-2023 End: 12-06-2023 ambulatory MATEO GODFREY [facility] Start: 11-29-2023 End: 11-29-2023 ambulatory NOAH NICHOLAS Not Available Start: 11-12-2023 End: 11-12-2023 ambulatory CHARMAINE HAIRSTON Not Available Start: 11-08-2023 End: 11-08-2023 ambulatory MATEO GODFREY [facility] Start: 10-29-2023 End: 10-29-2023 ambulatory NOAH NICHOLAS Not Available Start: 10-11-2023 End: 10-11-2023 ambulatory NOAH NICHOLAS Not Available Start: 10-09-2023 End: 10-09-2023 [facility] Start: 09-11-2023 End: 09-11-2023 ambulatory NOAH NICHOLAS Not Available Start: 09-10-2023 End: 09-11-2023 Emergency department patient visit MANUEL Landis HERBERT [facility] Start: 08-28-2023 End: 08-28-2023 Emergency department patient visit CHAS BALDERAS [facility] Start: 08-24-2023 End: 08-24-2023 ambulatory CHAS BALDERAS Not Available Start: 08-14-2023 End: 08-14-2023 ambulatory NOAH NICHOLAS Not Available Start: 07-19-2023 End: 07-19-2023 ambulatory CHARMAINE HAIRSTON Not Available Start: 07-02-2023 Telephone encounter Lindsey philip INSECT CONTROL AIDE-MEDIA SUPERVISOR Work Phone: [facility] - Sleep Disorders Comment on above: Sleep Lab ([facility]) Start: 06-29-2023 End: 06-29-2023 ambulatory [facility] Start: 06-29-2023 End: 06-29-2023 Office outpatient new 45 minutes Lindsey Deanna Mcmahon INSECT CONTROL AIDE-MEDIA SUPERVISOR Work Phone: [facility] Comment on above: MOLINA (obstructive sle ep apnea) (Primary Dx); Morning headache; Memory loss; Fatigue, unspecified type; Snoring Start: 06-24-2023 Refill Katerin grewal INSECT CONTROL AIDE-MEDIA SUPERVISOR Work Phone: [facility] Start: 06-14-2023 End: 06-14-2023 ambulatory RAZIA MULLER [facility] Start: 06-06-2023 Refill Katerin grewal INSECT CONTROL AIDE-MEDIA SUPERVISOR Work Phone: [facility] Start: 06-05-2023 Orders Only Sadaf Louis [facility] Comment on above: Low back pain, unspe cified back pain laterality, unspecified chronicity, unspecified whether sciatica present (Primary Dx) Start: 05-29-2023 Telephone encounter Orders Sup port User Transcribe [facility] Comment on above: Sleep Lab Start: 05-22-2023 End: 05-22-2023 ambulatory CHAS RAYWendi Not Available Start: 05-16-2023 End: 05-17-2023 Emergency department patient visit LINA HUGHES [facility] Start: 05-15-2023 End: 05-15-2023 ambulatory NOAH PETERSON Not Available Start: 05-03-2023 End: 05-03-2023 ambulatory [facility] Start: 05-03-2023 End: 05-03-2023 [facility]IDE-MEDIA SUPERVISOR Work Phone: [facility] Comment on above: Acute non-recurrent maxillary sinusitis (Primary Dx) Start: 04-19-2023 End: 04-19-2023 ambulatory CHARMAINE HAIRSTON Not Available Start: 02-05-2023 End: 02-05-2023 ambulatory Jovita Murcia Other [email or web address] Other Start: 02-05-2023 Office outpatient vi sit 15 minutes Jovita Murcia [facility] [place] Start: 12-22-2022 End: 12-22-2022 ambulatory Aline Villalobos Facility:[facility] Start: 12-22-2022 End: 12-22-2022 ambulatory MD Aline Villalobos Work Phone: [facility] Work Phone: Start: 12-22-2022 End: 12-22-2022 Patient encounter procedure MD Aline Villalobos Work Phone: [facility] [place] Work Phone: Start: 12-20-2022 End: 12-20-2022 ambulatory Aline Villalobos Facility:[facility] Start: 12-20-2022 End: 12-20-2022 ambulatory MD Aline Villalobos Work Phone: [facility] Work Phone: Start: 12-20-2022 End: 12-20-2022 Patient encounter procedure MD Aline Villalobos Work Phone: [facility] [place] Work Phone: Start: 09-04-2022 ambulatory RAYSA LINN Facilit y:[facility] Start: 07-20-2022 End: 07-22-2022 Evaluation and management of inpatient Inge Leung DO Work Phone: [facility] Comment on above: RLTCS w/ IUD 07/20/22 F Apg 8/9 Wt 6#12 (Primary Dx) Start: 07-20-2022 End: 07-20-[address] NOAH PETERSON Facility:[facility] Start: 07-19-2022 End: 07-19-[address] NOAH PETERSON Facility:[facility] Start: 07-18-2022 End: 07-18-2022 ambulatory Alesha Cortez Other [email or web address] Other Start: 07-18-2022 Office outpatient vi sit [...] 03-21-2022 End: 03-21-2022 ambulatory Naga Wells Other [email or web address] Other Start: 03-21-2022 Office outpatient ne w 30 minutes Naga Wells [facility] Start: 03-19-2022 End: 03-19-2022 ambulatory LILIA RUIZ Facility:[facility] Start: 03-15-2022 End: 03-16-[address] NOAH PETERSON Facility:[facility] Start: 03-03-2022 End: 03-04-[address] NOAH PETERSON Facility:[facility] Start: 02-27-2022 Blood pressure taking Jovita groves Other [email or web address] Other Start: 01-09-2022 End: 01-10-[address] [...] abnormal cervical Papanicolaou smear Jovita Murcia Other [email or web address] Other Start: 01-30-2018 End: 01-31-2018 Patient encounter DEFAULT PHYSICIAN Facility:[facility] Procedures Date Procedure Procedure Detail Performing Clinician Start: 12-22-2022 Investigation of transfusion reaction MD Aline Villalobos Work Phone: Start: 07-22-2022 Glucose blood reagent strip Hitesh A Suffolk DO Work Phone: Start: 07-21-2022 Glucose blood reagent strip Hitesh A Suffolk DO Work Phone: Start: 07-21-2022 Glucose blood reagent strip Hitesh A Jewel DO Work Phone: Start: 07-21-2022 Glucose blood reagent strip Hitesh A Suffolk DO Work Phone: Start: 07-21-2022 Blood count complete auto&auto difrntl wbc Nash Bush DO Work Phone: Start: 07-20-2022 Glucose blood reagent strip Hitesh A Jewel DO Work Phone: Start: 07-20-2022 Cul prsmptv pthgnc o rganism scrn w/colony estimj Shelby N Ramirez DO Work Phone: Start: 07-20-2022 Culture bacterial quanttative colony count urine Horacio Almazan MD Work Phone: Start: 07-20-2022 End: 07-20-2022 delivery only Hitesh A Suffolk DO Work Phone: Start: 07-20-2022 Antibody screen Jamil Leung DO Work Phone: Start: 07-20-2022 End: 07-20-2022 Blood typing serologic abo Apoorva Easonob DO Work Phone: Start: 07-20-2022 End: 07-20-2022 Comprehensive metabolic panel Apoorva Margob DO Work Phone: Start: 07-20-2022 T. PALLIDUM AB Apoorva Peterson rgob DO Work Phone: Start: 07-20-2022 H/O: section History of CS x2 Inge Leung DO Work Phone: Start: 07-15-2022 Ct thorax w/contrast material Diamante G Sean MD Work Phone: Start: 07-15-2022 Antibody screen [...] in Cervix by Cyto stain Katerin Haynes [employer] Work Phone: Start: 12-28-2021 Diabetes mellitus screening Jovita Murcia Other Start: 11-30-2021 Adult depression scr eening assessment Katerin Haynes [employer] Work Phone: End: 04-13-2021 screening Jovita Murcia Other End: 07-27-2021 screening Jovita Murcia Other Counseling Jovita Murcia Other Depression screening Jovita Murcia Other visit Jovita nicolas Other Plan of Treatment Date Care Activity Detail Author Start: 12-21-2029 DTaP,Tdap and Td Vaccines (7 - Td or Tdap) DTaP,Tdap and Td Vaccines (7 - Td or Tdap) [facility] Start: 12-21-2029 DTaP/Tdap/Td vaccine (7 - Td or Tdap) DTaP/Tdap/Td vaccine (7 - Td or Tdap) [facility] Start: 05-29-2025 Screening for malign ant neoplasm of cervix Pap Smear [facility] Start: 06-28-2024 Adult BMI Screening Adult BMI Screen ing [facility] Start: 06-28-2024 Tobacco Screening Tobacco Screening [facility] Start: 06-13-2024 Adult BMI Screening Adult BMI Screen ing [facility] Start: 05-16-2024 Adult BMI Screening Adult BMI Screen ing [facility] Start: 05-16-2024 Tobacco Screening Tobacco Screening [facility] Start: 05-03-2024 Adult BMI Follow Up Plan Adult BMI Follow Up Plan [facility] Start: 05-03-2024 Adult BMI Screening Adult BMI Screen ing [facility] Start: 05-03-2024 Tobacco Screening Tobacco Screening [facility] Start: 03-12-2024 Adult BMI Follow Up Plan Adult BMI Follow Up Plan [facility] Start: 01-09-2024 End: 01-09-2024 Patient encounter procedure 01/09/2024 9:00 AM EDT Office Visit [facility] [address] [place] [address] [place] [address] Lindsey Mcmahon, INSECT CONTROL AIDE-MEDIA SUPERVISOR [address] [address] [facility] Start: 10-23-2023 End: 10-23-2023 Clinical Support 10/23/2023 8:00 PM EDT Clinical Support [facility] [address] [place] [phone] [facility] Start: 07-11-2023 End: 07-11-2023 Patient encounter procedure 07/11/2023 10:00 AM EDT Office Visit [facility] [address] [place] [address] Lindsey Mcmahon, INSECT CONTROL AIDE-MEDIA SUPERVISOR [address] [facility] [address] [place] [address] [facility] Start: 06-25-2023 End: 06-25-2023 Patient encounter procedure 06/25/2023 10:30 AM EST Office Visit [facility] [address] [place] [phone] Terese Valladares, INSECT CONTROL AIDE-MEDIA SUPERVISOR [address] [facility] [address] [place] [address] [facility] Start: 06-14-2023 End: 06-14-2023 Patient encounter procedure 06/14/2023 8:15 AM EST Appointment [facility] [address] [place] [phone] [facility] Start: 06-05-2023 End: 06-05-2024 [...] procedure 06/05/2023 1:30 PM EST Office Visit [facility] [address] [place] [phone] Katerin Haynes, INSECT CONTROL AIDE-MEDIA SUPERVISOR [address] [facility] [place] [address] [facility] Start: 05-28-2023 End: 05-28-2023 Patient encounter procedure 05/28/2023 9:30 AM EST Office Visit [facility] [address] [place] [facility] [place] [phone] Blaine Terese, INSECT CONTROL AIDE-MEDIA SUPERVISOR [address] [address] [facility] Start: 05-18-2023 Hemoglobin A1c measurement A1C test (Diabetic or Prediabetic) [facility] Start: 12-22-2022 COVID-19 Vaccine ( season) COVID-19 Vaccine () [facility] Start: 12-22-2022 Influenza vaccination Influenza Vacc ine [facility] Start: 12-22-2022 Cerebrospinal fluid culture [facility] Start: 12-22-2022 End: 12-22-2022 [facility] Start: 11-30-2022 Depression Screening Depression Scre ening [facility] Start: 11-21-2022 Influenza vaccination Flu vacc ine (Season Ended) [facility] Start: 07-20-2022 End: 07-20-2022 Patient encounter procedure 07/20/2022 Routine Perinatology [facility] Start: 07-13-2022 End: 07-13-2022 Patient encounter procedure 07/13/2022 Routine Perinatology [facility] Start: 07-06-2022 End: 07-06-2022 Patient encounter procedure 07/06/2022 Routine Perinatology [facility] Start: 02-05-2022 Screening for malign ant neoplasm of cervix [facility] Start: 11-21-2021 Influenza vaccination Flu vaccine (# 1) [facility] Start: 01-21-2021 COVID-19 Vaccine (2 - Booster for Hipolito series) COVID-19 Vaccine (2 - Booster for Hipolito series) [facility] Start: 02-05-2013 Screening for malign ant neoplasm of cervix Pap smear [facility] Start: 02-05-2010 Hepatitis C screening Hepatitis C sc reen [facility] Start: 02-05-2007 HIV screening HIV screen [facility] Start: 2004 Depression Screen Depression Screen [facility] Start: 02-05-2002 Lipid panel Lipids [facility] [employer] Start: 02-05-1998 Pneumococcal 0-64 ye ars Vaccine (1 - PCV) Pneumococcal 0-64 years Vaccine (1 - PCV) [facility] Start: 02-05-1993 Varicella vaccine (1 of 2 - 2-dose childhood series) Varicella vaccine (1 of 2 - 2-dose childhood series) [facility] Bacteria identified in Unspecified specimen by Aerobe culture [facility] Bacteria identified in Unspecified specimen by Anaerobe culture [facility] End: 07-15-2022 COVID-19, Rapid COVID-19, Rapid Microbiology STAT One Time for 1 Occurrences starting 07/15/2022 until 07/15/2022 [employer] Phone: Comment on above: One Time for 1 Occur rences starting 07/15/2022 until 07/15/2022 CT CHEST PULMONARY EMBOLISM W CONTRAST CT CHEST PULMONARY EMBOLISM W CONTRAST Imaging STAT 07/15/2022 5:48 PM EDT [employer] Phone: Culture, Strep B Scr een, Vaginal/Rectal Culture, Strep B Screen, Vaginal/Rectal Microbiology [employer] Label Print 07/20/2022 6:56 PM EDT [employer] Phone: EKG 12 Lead EKG 12 Lead ECG Routine 07/15/2022 4:23 AM EDT [employer] Phone: Glucose [Mass/volume ] in Serum or Plasma POCT glucose Point of Care Testing Routine 4X Daily (AC & HS) until discontinued starting 07/20/2022 [employer] Phone: Comment on above: 4X Daily (AC & HS) u ntil discontinued starting 07/20/2022 End: 07-15-2022 Hepatitis C Antibody [employer] Phone: Comment on above: One Time for 1 Occur rences starting 07/15/2022 until 07/15/2022 Meningitis+Encephali tis pathogens DNA and RNA panel - Cerebral spinal fluid by SARANYA with non-probe detection [facility] Microscopic observat ion [Identifier] in Unspecified specimen by Gram stain [facility] Nonrebreather mask oxygen Nonrebreather mask oxygen Respiratory Care Routine As directed - RT (PRN) until discontinued starting 07/15/2022 [employer] Phone: Comment on above: As directed - RT (NY N) until discontinued starting 07/15/2022 Oxygen therapy [Mini mum Data Set] Initiate Oxygen Therapy Protocol Respiratory Care Routine Daily until discontinued starting 07/20/2022 [employer] Phone: Comment on above: Daily until disconti nued starting 07/20/2022 Patient Education [facility] Lumb ar Puncture Discharge Instructions [facility] Work Phone: PROFILE I PROF ILE I Lab [employer] Label Print 07/15/2022 4:12 PM EDT [employer] Phone: End: 06-28-2024 PSG Diagnostic [facility] Routine MOLINA (obstructive sleep apnea) 1 Occurrences starting 06/29/2023 until 06/28/2024 [facility] Work Phone: Comment on above: 1 Occurrences starti ng 06/29/2023 until 06/28/2024 End: 07-15-2022 RAPID INFLUENZA A/B ANTIGENS RAPID INFLUENZA A/B ANTIGENS Microbiology STAT One Time for 1 Occurrences starting 07/15/2022 until 07/15/2022 [employer] Phone: Comment on above: One Time for 1 Occur rences starting 07/15/2022 until 07/15/2022 End: 07-20-2022 Specimen hold [employer] Phone: Comment on above: Once for 1 Occurrenc es starting 07/20/2022 until 07/20/2022 End: 07-20-2022 Specimen to Pathology Specimen to Pathology Lab Routine One Time for 1 Occurrences starting 07/20/2022 until 07/20/2022 [employer] Phone: Comment on above: One Time for 1 Occur rences starting 07/20/2022 until 07/20/2022 Spirometry panel Incentive linda metry Respiratory Care Routine Every 2hr while awake until discontinued starting 07/20/2022 [facility] Work Phone: Comment on above: Every 2hr while awak e until discontinued starting 07/20/2022 End: 07-15-2022 Troponin I.cardiac [Mass/volume] in Serum or Plasma Troponin Lab STAT One Time for 1 Occurrences starting 07/15/2022 until 07/15/2022 [facility] Work Phone: Comment on above: One Time for 1 Occur rences starting 07/15/2022 until 07/15/2022 Immunizations Immunization Date Immunization Notes Care Provider Lucas bowen 04-21-2014 influenza virus vaccine, unspecified formulation Katerin Haynes INSECT CONTROL AIDE-MEDIA SUPERVISOR Work Phone: [facility] NEGATED: Highlighted row has not occurred!07-22-2022 tetanus toxoid, reduced diphtheria toxoid, and acellular pertussis vaccine, adsorbed Inge Galinaza DO Work Phone: [facility] Payers Date Payer Category Payer Unknown 2022 Unknown [id number] 2022 Medicaid [id number] 2022 Medicaid [place] [id number] 2022-Present [address] [place] [address] 1.2.840.500130.1.13.424.2. 7.3.942071.315 1992 Unknown [id number] 2.16.840.1.835384.3.579.2. 647 1992 Unknown [id number] 2.16.840.1.166473.3.579.2. 593 1992 Unknown [id number] 2.16.840.1.330807.3.579.2. 593 1992 Unknown [id number] 2.16.840.1.996127.3.579.2. 593 1992 Unknown [id number] 2.16.840.1.461531.3.579.2. 593 1992 Unknown [id number] 2.16.840.1.525965.3.579.2. 593 1992 Unknown [id number] 2.16.840.1.034128.3.579.2. 593 1992 Unknown [id number] 2.16.840.1.396834.3.579.2. 593 1992 Unknown [id number] 2.16.840.1.593190.3.579.2. 593 1992 Unknown [id number] 2.16.840.1.290031.3.579.2. 593 1992 Unknown [id number] 2.16.840.1.419542.3.579.2. 593 1992 Unknown [id number] 2.16.840.1.909393.3.579.2. 593 1992 Unknown [id number] 2.16.840.1.025409.3.579.2. 593 1992 Unknown [id number] 2.16.840.1.580462.3.579.2. 593 1992 Unknown [id number] 2.16.840.1.606974.3.579.2. 593 1992 Unknown [id number] 2.16.840.1.595982.3.579.2. 593 1992 Unknown [id number] 2.16.840.1.787797.3.579.2. 593 1992 Unknown [id number] 2.16.840.1.001094.3.579.2. 593 1992 Unknown [id number] 2.16.840.1.063466.3.579.2. 593 1992 Unknown [id number] 2.16.840.1.134198.3.579.2. 593 1992 Unknown [id number] 2.16.840.1.096376.3.579.2. 593 1992 Unknown [id number] 2.16.840.1.680641.3.579.2. 593 1992 Unknown [id number] 2.16.840.1.544398.3.579.2. 593 1992 Unknown [id number] 2.16.840.1.501215.3.579.2. 593 1992 Unknown [id number] 2.16.840.1.050992.3.579.2. 593 1992 Unknown [id number] 2.16.840.1.259083.3.579.2. 593 1992 Unknown [id number] 2.16.840.1.575536.3.579.2. 593 1992 Unknown [id number] 2.16.840.1.076274.3.579.2. 593 1992 Unknown [id number] 2.16.840.1.708038.3.579.2. 593 1992 Unknown [id number] 2.16.840.1.014463.3.579.2. 593 1992 Unknown [id number] 2.16.840.1.268310.3.579.2. 593 1992 Unknown [id number] 2.16.840.1.650561.3.579.2. 593 1992 Unknown [id number] 2.16.840.1.649270.3.579.2. 593 1992 Unknown [id number] 2.16.840.1.830022.3.579.2. 593 1992 Unknown [id number] 2.16.840.1.341988.3.579.2. 593 1992 Unknown [id number] 2.16.840.1.981101.3.579.2. 593 1992 Unknown [id number] 2.16.840.1.399356.3.579.2. 593 1992 Unknown [id number] 2.16.840.1.415130.3.579.2. 593 1992 Unknown [id number] 2.16.840.1.799519.3.579.2. 593 1992 Unknown [id number] 2.16.840.1.042315.3.579.2. 593 1992 Unknown [id number] 2..840.1.207016.3.579.2. 593 1992 Unknown [id number] 2..840.1.715390.3.579.2. 1286 1992 Unknown [id number] 2.16.840.1.888416.3.579.2. 1286 1992 Unknown [id number] 2.16.840.1.676488.3.579.2. 1259 1992 Unknown [id number] 2.16.840.1.567995.3.579.2. 1259 1992 Unknown [id number] 2..840.1.958735.3.579.2. 1259 1992 Unknown [id number] 2.16.840.1.670136.3.579.2. 1259 1992 Unknown [id number] 2.16.840.1.907861.3.579.2. 1259 1992 Unknown [id number] 2.16.840.1.077433.3.579.2. 1259 1992 Unknown [id number] 2.16.840.1.250189.3.579.2. 1259 1992 Unknown [id number] 2.16.840.1.850335.3.579.2. 1259 1992 Unknown [id number] 2.16.840.1.187829.3.579.2. 1259 1992 Unknown [id number] 2.16.840.1.097328.3.579.2. 1259 1992 Unknown [id number] 2.16.840.1.032106.3.579.2. 1259 1992 Unknown [id number] 2.16.840.1.398041.3.579.2. 1259 1992 Unknown [id number] 2.16.840.1.656509.3.579.2. 6 1992 Unknown [id number] 2.16.840.1.771306.3.579.2. 6 1992 Unknown [id number] 2.16.840.1.946125.3.579.2. 1285 1992 Unknown [id number] 2.16.840.1.837690.3.579.2. 1286 1992 Unknown [id number] 2.16.840.1.098353.3.579.2. 1286 1992 Unknown [id number] 2.16.840.1.527044.3.579.2. 1286 1992 Unknown [id number] 2.16.840.1.632194.3.579.2. 1286 1992 Unknown [id number] 2.16.840.1.887388.3.579.2. 175 1992 Unknown [id number] 2.16.840.1.268388.3.579.2. 175 1992 Unknown [id number] 2.16.840.1.872271.3.579.2. 175 1992 Unknown [id number] 2.16.840.1.999012.3.579.2. 175 1959 Medicaid [id number] 1.2.840.195132.1.13.239.2. 7.3.347441.315 1959 Private Health Insurance [id number] 1.2.840.694201.1.13.239.2. 7.3.363966.315 1959 Self-pay 1959 Unknown [id number] 1959 Worker's Compensation [id number] 2.16.840.1.062990.19 Medicaid [employer] Ad[employer]age [id number] Private Health Insurance [id number] 2.16.840.1.461176.19 Private Health Insurance [facility] [id number] Unknown [id number] 2.16.840.1.058080.19 Unknown [id number] 2.16.840.1.998744.3.579.2. 593 Unknown [id number] 2.16.840.1.188511.3.579.2. 531 Unknown [id number] 2.16.840.1.912047.3.579.2. 531 Social History Date Type Detail Facility Unknown if ever smoked [email or web address] Other Start: 06-03-2020 End: 05-03-2023 Sex Assigned At [email or web address] Other Start: 06-22-2022 End: 06-29-2023 Tobacco smoking status NDIS Ex-smoker [facility] Start: 05-25-2020 End: 12-22-2022 History of tobacco use Current smoker [employer] Phone: End: 11-20-2017 History of tobacco use Cigarette Smoker [employer] Phone: Start: 06-22-2022 End: 06-29-2023 Tobacco use and exposure Smokeless tobacco non-user [employer] Phone: Start: 06-29-2022 End: 06-29-2023 Alcohol intake Ex-drinker (finding) [employer] Phone: Start: 06-22-2022 Tobacco Comment Quit in 201806/22/2022 [facility] Phone: Start: 11-20-2021 [employer] Phone: Start: 1990 Sex Assigned At Female [facility] Start: 07-10-2022 End: 07-20-2022 Exposure to SARS-CoV-2 (event) Not sure [employer] Phone: Start: 06-03-2020 End: 11-16-2022 Cigarettes smoked current (pack per day) - [facility].5 [email or web address] Adolescent depressio n screening assessment 2 [facility] Start: 11-30-2021 Education 17 [facility] Start: 11-16-2022 Tobacco Comment quit in July [facility] Start: 05-16-2022 Gender identity Identifies as female gender (finding) [facility] Start: 05-25-2022 Sexual orientation Heterosexual (finding) [email or web address] Medical Equipment Procedure Code Equipment Code Equipment Origin al Text Equipment Identifier Dates BD ULTRA-FINE PE N NEEDLES 29G X 12.7MM MIS [id number] Start: 04-03-2022 ONETOUCH ULTRA strip [id number] Star t: 06-11-2022 DROPLET PEN NEED LES 29G X 12MM MISC [id number] Start: 06-30-2022 Clinical Notes 01-28-2020 to 07-02-2023 Telephone Encounter - Christine Valladares - 07/02/2023 9:14 AM EDTTelephone Encounter - Christine Valladares - 07/02/2023 9:14 AM VANESA Joaquin - 06/29/2023 11:00 AM ESTPatient Instructions Note Date & Type Note Facility 07-02-2023 Miscellaneous Notes Formattin g of this note is different from the original. 06/28 order received Scheduled [facility] on 10[facility]23 Mychart confirmation [facility] [employer] PSG order & 3/6 Kregel notes in Epic With TCO2 monitoring. Please obtain baseline in supine position. documented in this encounter [facility] 07-02-2023 Telephone encount er Note 3 order received Scheduled [facility] at [facility] on 10/[facility]/23 Mychart confirmation [employer] PSG order & 3/6 Kregel notes in Epic With TCO2 monitoring. Please obtain baseline in supine position. [facility] 06-29-2023 History of Presen t illness Narrative [...] you wake up? 6-8 AM Number of kcneec-ze-tws-night awakenings per night? 3-4 Cause of awakenings [...] Asthma 2016 Back pain Bipolar 1 disorder ([facility]) Cholecystitis gallbladder removed-2009 Chronic headache 2011 Depression 2012 Disease of thyroid gland 2018 Eczema 2020 GERD (gastroesophageal reflux disease) Gestational diabetes Heart murmur 2012 Hypertension Knee pain Migraine 2010 Obesity Visual impairment CURRENT MEDICATIONS Reviewed with [...] Mother Hypertension Mother Depression Mother Arthritis Mother RENEE disease Mother Miscarriages / Stillbirths Mother Suicide [...] to stop the activity if sleepiness occurs (pull tab dealer at the next safe opportunity if driving). [...] and during sleep). CC: MD Lindsey CAMEJO [facility] Office: [phone] 11:18 AM on 06/29/2023 This note is dictated with the use of M*Modal.Please note that this dictation was completed with computer voice recognition software. Quite often unanticipated grammatical, syntax, homophones, and other interpretive errors are inadvertently transcribed by the computer software. Please disregard these errors. Please excuse any errors that have escaped final proofreading. VANESA Mendez 06/29/23 1125 documented in this encounter [facility] 06-29-2023 Instructions VANESA Mendez - 06/29/2023 11:00 AM EST If you re looking for general health and wellness resources, please visit [email or web address] documented in this encounter [facility] 06-29-2023 Evaluation note Diagnosis MOLINA (obstructive sleep apnea)- Primary Obstructive sleep apnea (adult) (pediatric) Morning headache Memory loss Fatigue, unspecified type Snoring Other dyspnea and respiratory abnormality documented in this encounter [facility]2024 Miscellaneous Notes* Telephone Encounter - Ernestina Simpson - 05/29/2023 10:23 AM EST Pt called to schedule a sleep study or appointment with pulaquiles Dawn advised we have nothing as of now and either order is in her chart to schedule with gave her the number to sleep medicine in [place] [facility] Tele[facility] encounter Note* Telephone Encounter - Ernestina Andradesurinder - 05/29/2023 10:23 AM EST Pt called to schedule a sleep study or appointment with pulaquiles Dawn advised we have nothing as of now and either order is in her chart to schedule with gave her the number to sleep medicine in [place] [facility]01[facility]11[facility]2024 History of Present illness Narrative* Katerin Haynes, INSECT CONTROL AIDE-MEDIA SUPERVISOR - 05/03/2023 1:15 PM EST Images from the original note were not included. [address] [facility] [address] SUBJECTIVE: Patient ID: Yani Stevens [...] 1 tablet daily for 4 days.. Follow-up: Jodineck Follow up with routine visits Patient noted to have elevated BMI and the following intervention(s) were applied: encouragement toexercise. VANESA Frank 05/03/23 1330 [facility] Evaluation note* Encounter Date Diagnosis Assessment Notes [...] not specified, unspecified location (ICD-10 - J01.90) [email or web address] Other 04-01-2023 History of Present illness Narrative* [...] Sudden Infant Syndrome were reviewed with recommendations. sleeping, back [...] patient Attending Physician: Dr. Fish Estrada MD [facility] Resident 07/22/2022, 12:40 AM Attending Physician Statement [...] VSS with persistent elevated BP - Female infant in General Care Nursery - Encourage ambulation [...] patient Attending Physician: Dr. Betina Bush, DO [facility] Resident 07/21/2022, 3:02 AM Attending Physician Statement [...] MD 07/21/2022 10:00 AM [facility] Phone: 1(451) 894-738003-30-2023 Evaluation note* Diagnosis RLTCS w/ IUD 07/20/22 [...] Chronic hypertension affecting documented in this encounter [facility] [employer] Phone: 1(454) 364-429003-28-2023 Evaluation note* Encounter Date Diagnosis Assessment Notes [...] other viral communicable diseases (ICD-10 - Z20.828) [email or web address] Other 11-29-2022 Evaluation note* Encounter Date Diagnosis [...] off of work. We will apply for [facility] approval for therapy. [email or web address] Other 06-21-2021 NoteEducation Materials Obstetrics and Gynecology [...] Follow these instructions at home: ? Take lryb-pjk-txzvtqd and prescription medicines only as told by [...] menstrual period is much (more content not included)...[facility] 01-28-2020 NoteOphthalmology Basics of Medication Management [...] caregiver questions about your prescriptions and any btbj-ylq-tlhervq medications, vitamins, herbal or dietary supplements that [...] you take. Find out if your local government recycling program has a Medicine Take Back program [...] your caregiver or pharm (more content not included)...[facility] Chief complaint+Reason for visit Narrative* Chief Complaint Congestion, fever Reason for Visit Contact with and (grimm spected) exposure to covid-19 [facility] Work Phone: Evaluation note* Diagnosis 35 weeks gestation of - Primary state, incidental Ultrasound recheck of pyelectasis, antepartum Other known or suspected abnormality, not elsewhere classified, affecting management of mother, antepartum condition or complication Tobacco use disorder affecting , antepartum Placenta previa without hemorrhage, antepartum Oligohydramnios, antepartum Diabetes mellitus during , antepartum Abnormality in heart rate/rhythm, antepartum condition or complication documented in this encounter [facility] Work Phone: evaluation noteNo assessment information available [facility] Work Phone: Evaluation note* Diagnosis Acute non-recurrent maxillary sinusitis- Primary [facility] Diagnosis Low back pain, unspecified back pain laterality, unspecified chronicity, unspecified whether sciatica present- Primary [facility] Diagnosis Onset Date Resolution Status Contact with and (suspected) exposure to covid-19 noneactive [facility] Work Phone: History general Narrative - Reported* Type Description Date Medical History Depression Medical History Bipolar disorder Medical History Hypertension Medical History Hypothyroidism Surgical History cholecystectomy Surgical History wisdom teeth extract Surgical History lipoma removed Surgical History left knee scope x 2 Surgical History hemorrhoidectomy Hospitalization History see above surgical histo ry [facility] [employer] Other Hospital Discharge instructions* Attachments The following attachments cannot be sent through Care Everywhere. * Section: Post-op (Tristanian) * Preeclampsia: : General Info (Tristanian) * Depression: (Tristanian) documented in this encounterB[facility] Work Phone: Instructions* Attachments The following attachments cannot be sent through Care Everywhere. * Sinusitis in adults (Tristanian) documented in this encounterProOhiohealth Grove [facility] Methodist HospitalTILE Financial SystemInstructionsNot on file documented in this encounterProFlowdock SystemInstructionsNot on file documented in this encounterProOhiohealth Grove [facility] HospitalTILE Financial SystemInstructionsNot on file documented in this encounterProOhiohealth Grove [facility] HospitalTILE Financial SystemInstructionsNot on file documented in this encounterDiley [facility] [employer] System Summary Purpose Family History No Family History Records Found Relationship Condition Age at Onset Recorded Date/T fernanda grandparent Malignant neoplasm Unknown family member Malignant neoplasm Unknown Relationship Condition Age at Onset Recorded Date/T fernanda grandparent Malignant neoplasm Unknown family member Malignant neoplasm Unknown father Family history of mental disorder Unknown Diabetes mellitus Unknown Hypertension Unknown mother Diabetes mellitus Unknown Malignant neoplasm Unknown Family history of mental disorder Unknown Advance Directives No Advanced Directives Records [...] sleep apnea) Procedures PSG Diagnostic Lindsey Mcmahon, INSECT CONTROL AIDE-MEDIA SUPERVISOR [address], [address] [place] [address] Referral ID Status Reason Start Date Expiration Date V isits Requested Visits Authorized [id number] Pending Review 06/29/2023 06/28/2024 1 1 Additional Source Comments INFORMATION SOURCE (unrecogn ized section and content) DATE CREATED AUTHOR 02/27/2018 [facility] DATE CREATED AUTHOR AUTHOR'S ORGANIZ ATION 09/15/2020 [facility] DATE CREATED AUTHOR AUTHOR'S ORGANIZ ATION 10/17/2020 [facility] DATE CREATED AUTHOR AUTHOR'S ORGANIZ ATION 08/25/2022 [facility] DATE CREATED AUTHOR AUTHOR'S ORGANIZ ATION 01/01/2023 [facility] DATE CREATED AUTHOR AUTHOR'S ORGANIZ ATION 06/30/2023 [facility] DATE CREATED AUTHOR AUTHOR'S ORGANIZ ATION 12/18/2023 [facility] DATE CREATED AUTHOR AUTHOR'S ORGANIZ ATION 12/31/2023 [facility] DATE CREATED AUTHOR AUTHOR'S ORGANIZ ATION 01/01/2024 [facility] REASON FOR VISIT (unrecogniz ed section and content) Specialty Diagnoses / Procedures Referred By Contac t Referred To Contact Diagnoses 36 weeks gestation of Hitesh Holloway DO [address] [place] [address] [facility] [address] [place] [address] Referral ID Status Reason Start Date Expiration Date Visits Re quested Visits Authorized [id number] 1 1 Reason Comments Nasal Congestion Dizziness Reason Onset Date Comments Sleep Lab 05/29/2023 Reason Comments Med Refill Reason Comments New Patient Sleep ConsultNo prio r sleep studyNot on PAP Specialty Diagnoses / Procedures Referred By Ismael landis Referred To Contact Pulmonary Medicine Diagnoses Morning headache Memory loss Razia Muller, INSECT CONTROL AIDE-MEDIA SUPERVISOR [address] [place] [address] sp Pulm Sleep [facility] [address] [address] Referral ID Status Reason Start Date Expiration Date Visits Requested Visits Authorized [id number] Pending Review Specialty Services Required 06/12/2023 06/11/2024 [...] 4 hours., 0004 (Given - Provider: Elisa Mckeon, RN)0645 (Given - Provider: Elisa Mckeon RN)1301 [...] (Given - Provider: Stephany Paige APRN - HOGSHEAD STRIPPER) citalopram (CELEXA) tablet 20 mg 20 mg, [...] procedure., 0811 (Given - Provider: Lakesha Loera RN)222 (Given - Provider: Jennifer Porras) 0828 (Given [...] (Due)0830 (Given - Provider: Lakesha Loera RN)1400 (Due)2000 (Due) insulin lispro (HUMALOG) injection vial [...] 1835 (Given by Other - Provider: Dasha Rhodes RN) levothyroxine (SYNTHROID) tablet 50 mcg 50 mcg, [...] Elisa Mckeon RN)0812 (Given - Provider: Lakesha Loera RN)1420 (Given - Provider: Lakesha Loera RN)2221 [...] Loera RN) 0831 (Given - Provider: Lakesha Loera RN) rho(D) immune globulin (HYPERRHO S/D) injection 300 [...] (NoRateChange - Provider: Stephany Paige APRN - HOGSHEAD STRIPPER)1829 (Paused - Provider: Agata Pollard RN - [...] (7-10), 1806 (See Alternative - Provider: Lakesha Loera, VIKTORIA)2221 (See Alternative - Provider: Jennifer Porras) 0225 [...] physician. 1826 (New Bag - Provider: Agata Pollard RN)1839 [...] Care Teams (unrecognized sec tion and content) Team Status: Active Member Role Status Dates Chas Balderas MD Primary Care Provider Active Team Status: Inactive Member Role Status Dates Adriana Ortiz APRN Attending Provider Active Start: December 17, 2023 End: December 17, 2023 Chas Balderas MD Primary Care Provider Active S tart: December 17, 2023 End: December 17, 2023 Security Operations Manager Relationship Specialty Start Date End Date Chas Balderas MD [address] [place] [address] PCP - General Family Medicine 06/29/23 Security Operations Manager Relationship Specialty Start Date End Date Katerin Haynes APRN-MEDIA SUPERVISOR [address] [place] [address] PCP - General Family Medicine 11/23/22 Team Status: Active Member Role Status Dates Aline Villalobos MD Primary Care Provider Active Team Status: Inactive Member Role Status Dates Aline Villalobos MD Primary Care Provider Active Razia Muller , INSECT CONTROL AIDE-HAZARDOUS SUBSTANCES ENGINEER-C Attending Provider Active Goals (unrecognized section and [...] BE BASED ON THE PRIMARY CLINICAL RECORDS. [facility] [employer] [facility]. provides no warranty or guarantee of the accuracy or completeness of information in this document.
== END 2024-01-02 17:32 | disposition home or self-care (01) ==
LOC: US 17:32
PROVIDERS: PCP Family Medicine; Visit Provider Obstetrics & Gynecology
DX: O24.419 Gestational diabetes mellitus in pregnancy, unspecified control (principal); E03.9 Hypothyroidism, unspecified; Z3A.34 34 weeks gestation of pregnancy
CPT/HCPCS: 76816

== ENCOUNTER 2024-01-07 06:58 | Outpatient (OUT) | payer BC, MEDICAID, SELFPAY ==
--- NOTE | 2024-01-07 | US_ITS ---
[address] [address] Patient Name: YANI STEVENS MRN: [facility]:[id number] date: 1990 Sex: F Assigned Patient Location: Current Patient Location: Accession/Order Number: [id number] Exam Date: 01/07/2024 07:37 Report Date: 01/07/2024 10:20 At the request of: NOAH PETERSON Procedure: US OB BPP w non-stress EXAMINATION: US OB BPP w non-stress HISTORY: Gestational diabetes mellitus O24.419 COMPARISON: No relevant comparison available. TECHNIQUE: Ultrasound biophysical profile was performed in the radiology department. non-reactive stress testing was performed by nursing staff in the birthing center. FINDINGS: BREATHING MOVEMENTS: 2 GROSS BODY MOVEMENTS: 2 TONE: 2 QUALITATIVE AMNIOTIC FLUID VOLUME: 2 PRESENTATION: Cephalic HEART RATE: 138 bpm AMNIOTIC FLUID VOLUME: 15.2 cm GESTATIONAL AGE: 32 weeks 6 days US/US OB BPP w non-stress IMPRESSION: Total biophysical profile score: 8/8 Electronically authenticated by: ALINE GALICIA Date: 01/07/2024 10:20
--- NOTE | 2024-01-07 | US_ITS ---
[address] [address] Patient Name: YANI STEVENS MRN: [facility]:[id number] date: 1990 Sex: F Assigned Patient Location: Current Patient Location: US Accession/Order Number: [id number] Exam Date: 01/07/2024 07:37 Report Date: 01/07/2024 10:50 At the request of: NOAH PETERSON Procedure: US OB growth EXAMINATION: US OB growth, US OB umbilical artery HISTORY: Gestational diabetes mellitus O24.419 COMPARISON: No relevant comparison available. FINDINGS: Heart Rate: 138 Amniotic Fluid Volume: 15.2 cm, largest fluid pocket 5.4 cm Number: Single Position: Cephalic presentation, longitudinal lie BIOMETRY: BPD: 8.9 cm; 36 weeks 0 days; >97% HC: 32.4 cm; 6 weeks 5 days; 96% AC: 31.1 cm; 35 weeks 0 days; 96% FL: 6.3 cm; 32 weeks 5 days; 35% EFW: 2491 g, 5 lbs. 8 oz., 91%; FL/AC: 20.37 FL/BPD: 70.19 HC/AC: 1.04 GESTATIONAL AGE: Age by EDC: 32 weeks 6 days SUNSHINE by EDC: 02/26/2024 Age by US: 35 weeks 1 day SUNSHINE by US: 02/10/2024 Umbilical Dopplers PSV/EDV centimeters per second: Proximal umbilical artery: 130/42, resistive index 0.68. Ratio 3.1 Mid umbilical artery: 101/47, resistive index 0.54. Ratio 2.2 Distal umbilical artery: 84/38, resistive index 0.55, ratio 2.2. Forward flow identified throughout diastole US/US OB growth IMPRESSION: BPD, head circumference and abdominal circumference above the 95th percentile Normal umbilical artery exam, class 0 Electronically authenticated by: ALINE GALICIA Date: 01/07/2024 10:50
--- NOTE | 2024-01-07 | US_ITS ---
[address] [address] Patient Name: YANI STEVENS MRN: [facility]:[id number] date: 1990 Sex: F Assigned Patient Location: [facility] Current Patient Location: US Accession/Order Number: [id number] Exam Date: 01/07/2024 07:37 Report Date: 01/07/2024 10:50 At the request of: NOAH PETERSON Procedure: US OB umbilical artery EXAMINATION: US OB growth, US OB umbilical artery HISTORY: Gestational diabetes mellitus O24.419 COMPARISON: No relevant comparison available. FINDINGS: Heart Rate: 138 Amniotic Fluid Volume: 15.2 cm, largest fluid pocket 5.4 cm Number: Single Position: Cephalic presentation, longitudinal lie BIOMETRY: BPD: 8.9 cm; 36 weeks 0 days; >97% HC: 32.4 cm; 6 weeks 5 days; 96% AC: 31.1 cm; 35 weeks 0 days; 96% FL: 6.3 cm; 32 weeks 5 days; 35% EFW: 2491 g, 5 lbs. 8 oz., 91%; FL/AC: 20.37 FL/BPD: 70.19 HC/AC: 1.04 GESTATIONAL AGE: Age by EDC: 32 weeks 6 days SUNSHINE by EDC: 02/26/2024 Age by US: 35 weeks 1 day SUNSHINE by US: 02/10/2024 Umbilical Dopplers PSV/EDV centimeters per second: Proximal umbilical artery: 130/42, resistive index 0.68. Ratio 3.1 Mid umbilical artery: 101/47, resistive index 0.54. Ratio 2.2 Distal umbilical artery: 84/38, resistive index 0.55, ratio 2.2. Forward flow identified throughout diastole US/US OB umbilical artery IMPRESSION: BPD, head circumference and abdominal circumference above the 95th percentile Normal umbilical artery exam, class 0 Electronically authenticated by: ALINE GALICIA Date: 01/07/2024 10:50
--- OUTSIDE RECORDS SUMMARY | 2024-01-07 07:02 | XMS_ITS | CCD ---
Author Organization [facility] Care Team Providers Care Nailhead Operator Name Role Phone PHYSICIAN, DEFAULT Unavailable Unavailable PHYSICIAN, DEFAULT Unavailable Unavailable Naga Wells Unavailable None, . Primary Care Provider UnavailAlesha Garcia Unavailable LILIA RUIZ Consulting Unavailable LILIA RUIZ Attending Unavailable LILIA RUIZ Admitting Unavailable NADYAZMIN, DR CHAS Norman Primary Care Unavailable GILDARDO TAYLOR Consulting Unavailable KARASIK ., DR DOUGHERTY Consulting Unavailabl e KARASIK ., DR DOUGHERTY Attending Unavailabl e KARASIK ., DR DOUGHERTY Admitting Unavailabl e NADYAZMIN, DR CHAS Norman Primary Care Unavailable NADEREWendi, DR CHAS Norman Consulting Unavailable KARASIK ., [...] NADEREWendi, DR CHAS Norman Primary Care Unavailable ZILEVI, DR GERARD Adame Consulting Unavailable SHAIKH Vandana REED Attending Unavailable SHAIKH Vandana REED Admitting Unavailable NADEREWendi, DR CHAS A Primary Care Unavailable NICHOLAS, [...] NADERER, DR CHAS Norman Primary Care Unavailable RICHMOND, DR ALINE Henriquez Consulting Unavailable NICHOLAS, DR ZAMORA Consulting Unavailable KARASIK ., DR DOUGHERTY Admitting Unavailabl e KARASIK ., DR DOUGHERTY Consulting Unavailabl e KARASIK ., DR DOUGHERTY Attending Unavailabl e NADERER, DR CHAS Norman Primary Care Unavailable KARASIK ., DR DOUGHERTY Attending Unavailabl e KARASIK ., DR DOUGHERTY Admitting Unavailabl e KARASIK ., DR DOUGHERTY Consulting Unavailabl e FAWMEGAN, AMEZQUITA H Primary Care Unavailable NICHOLAS, DR ZAMORA Admitting [...] Primary Care Unavailable DAV VILLAR Consulting Unavailable DAV VILLAR Attending Unavailable DEREK, AMEZQUITA H Primary Care Unavailable DAV VILLAR Admitting Unavailable [...] Unavailable MD Aline Villalobos Primary Care Provider [phone] TONJA Muller Attending Provider Aline Villalobos Primary Care Unavailable Razia Muller Admitting Unavailable Razia Muller Attending Unavailable Aline Villalobos Primary Care Unavailable Razia Muller Admitting Unavailable Razia Muller Attending Unavailable Jovita Murcia Unavailable Schlachter MILITARY ADMINISTRATIVE TECHNICIAN-FIELD CONTROL INSPECTOR, Katerin Primary Care Provide r Schmochter MILITARY ADMINISTRATIVE TECHNICIAN-FIELD CONTROL INSPECTOR, Katerin Primary Care Provide r Chas Balderas MD Primary Care Provider LINDSEY MCMAHON Attending Unavailable MULLER, RAZIA Referring Unavailable NADERER, CHAS Primary Care Unavailable SCHLACHTER, KATERIN Attending Unavailable SCHLACHTER, KATERIN Referring Unavailable SCHLACHTER, KATERIN Primary Care Unavailable NADERER, CHAS Primary Care Unavailable BONITA COFFMAN Attending Unavailable NADERER, CHAS Primary Care Unavailable HERBERT, MANUEL Landis Attending Unavailable SCHLACHTER, KATERIN Primary Care Unavailable CLAUDIA SOLARES Attending Unavailable KARCHIVELISSE, LINA Watkins Attending Unavailable KARCHIVELISSE, LINA Watkins Referring Unavailable SCHLACHTER, KATERIN Primary Care Unavailable HERBERT, MANUEL Landis Attending Unavailable HERBERT, MANUEL Landis Referring Unavailable NADERER, CHAS Primary Care Unavailable NADEREWendi, CHAS Primary Care Unavailable KANIKA VIDAL Attending Unavailable MULLER, RAZIA Referring Unavailable SCHLACHTER, KATERIN Primary Care Unavailable CHARMAINE HAIRSTON Attending Unavailable NICHOLAS, NOAH Attending Unavailable NADERER, CHAS Attending Unavailable NICHOLAS, NOAH Attending Unavailable NADERER, CHAS Attending Unavailable NICHOLAS, NOAH Attending Unavailable NICHOLAS, NOAH Attending Unavailable NICHOLAS, NOAH Attending Unavailable MARIKA, CHARMAINE Attending Unavailable NICHOLAS, NOAH Attending Unavailable NICHOLAS, NOAH Attending Unavailable NICHOLAS, NOAH Attending Unavailable PERNI, MATEO C Referring Unavailable NADERER, CHAS SULLIVAN Primary Care Unavailabl e PERNI, MATEO C Referring Unavailable NADERER, [facility] Primary Care Unavailabl e PERNI, MATEO C Referring Unavailable NADERER, [facility] Primary Care UnavailCLAUDIA Walker Admitting Unavailable CLAUDIA VILLAR Attending Unavailable NADERER, [facility] Primary Care Unavailabl e Allergies Allergy Classification Reported Allergen(s) Allergy Type Date of Onset Reaction(s) Facility (20 sources) Amoxicillin; Translations: [Amoxicillin] Drug Allergy 11-08-18 96 Anaphylaxis, shortness of breath [facility] (18 sources) Morphine; Translations: [MORPHINE] Drug Allergy 09-18-19 18 hives, Rash [facility] [employer] Other (16 sources) Codeine; Translations: [CODEINE] Drug Allergy 06-06-19 [facility] (13 sources) Penicillins; Translations: [PENICILLINS] Propensity to adverse reactions to drug 02-22-20 16 Anaphylaxis, Shortness Of Breath [facility] Work Phone: (1 source) Codeine Drug Allergy 07-30-19 22 [facility] (1 source) Morphine Drug Allergy [facility] (1 source) Codeine Drug Allergy 12-23-19 23 [facility] (1 source) Morphine Drug Allergy 05-25-19 21 [facility] (1 source) Pseudoephedrine Drug Allergy 02-22-20 22 Unknown [facility] Other (1 source) Allergies Reconciled Propensity to adverse reactions 02-28-20 Unknown [facility] Other (1 source) Substance with penicillin structure and antibacterial mechanism of action (substance) Drug allergy 02-28-20 Unknown [facility] Other (1 source) Morphine Sulfate (Concentrate) *ANALGESICS - OPIOI Propensity to adverse reactions 02-28-20 Unknown [facility] Other (9 sources) Doxycycline; Translations: [DOXYCYCLINE] Drug Allergy 02-08-20 23 [employer] (1 source) 12 Hour Decongestant Allergy to substance 12-17-19 Unknown Reaction [facility] Medications Current Medications Medication Drug Class(es) Dates [...] as needed Orally every 6 hrs Active [id number] 200 actuat albuterol 0.09 mg/actuat metered dose [...] 06-20-2022 PROFE 391.3 (180 Fe) MG CAPS [id number]-Cyhou Acid (1 source) Start: 12-17-2023 take 1 tablet by mouth once daily [id number]-Ufvzl Acid Active 1 TAB PO Daily December [...] 30 mL, Oral, ONCE, 1 dose, On Sun07/20/22 at 1545 Give immediately prior to transfer [...] Orally once a d ay Active levonorgestrel 0.321519 mg/hr intrauterine system (3 sources) Progestin, Progestin-containing [...] tablet 0 11/16/2017 Active polyethylene glycol 3350 43834 mg powder for oral solution (3 sources) [...] Onset: 05-26-2022 Episodic Other aftercare (1 source) half-way (current) use of insulin; Translations: [SKILLED NURSING [...] other high risk pregnancies, second trimester] Onset: 12-06-2023 Episodic Other connective tissue disease (1 source) [...] uncomplicated] Onset: 08-28-2023 Episodic Unclassified (1 source) OTH SPCF DIS/COND COMPL ; Translations: [OTH SPCF DIS/COND COMPL ] Onset: 05-29-2022 Unclassified (1 source) abnormal result; Translations: [Other nonspecific abnormal finding] Unclassified (1 source) Myalgic encephalomyelitis/chr onic fatigue syndrome; Translations: [Myalgic encephalomyelitis/chr onic fatigue syndrome] Resolved: 07-20-2021 Unclassified (1 source) Suspected COVID-19 virus infection Z20.822 Unclassified (7 sources) Onset: 05-03-2023 05-03-2023 Results Test Name Value Interpretation Reference Range Facility Chlamydia/GC,DNA Ampon 12-31 Chlamydia Probe Negative Normal NEG [facility] Comment on above: Result Comment: CHLA [...] alternative nucleic acid target. Performed By: #### P ROCAC, AT3A, PROSAC, HOCYS, GLYHGB, TSH, LUPPRO, FT4 #### [facility] [address] [place] [id number] Sewage Plant Operator: Gideon Bullock MD #### AAFPM #### [facility] [address] [place] [address] [phone] Sewage Plant Operator: Gideon Bullock MD [address] [address] Sewage Plant Operator: Fantasma Wood MD #### AF5MUT, AMTHFR, APTMUT #### [facility] [address] [place], [place] [id number] Sewage Plant Operator: Fantasma Wood MD Gonorrhea Probe Negative Normal NEG [facility] Comment on above: Result Comment: NEIS [...] alternative nucleic acid target. Performed By: #### P ROCAC, AT3A, PROSAC, HOCYS, GLYHGB, TSH, LUPPRO, FT4 #### [place] [address] Sewage Plant Operator: Gideon Bullock MD #### AAFPM #### [place] [address] Sewage Plant Operator: Gideon Bullock MD [address] [id number] Sewage Plant Operator: Fantasma Wood MD #### AF5MUT, AMTHFR, APTMUT #### [facility] [address] [place] [id number] Sewage Plant Operator: Fantasma Wood MD CBC with Diffon 12-31-2023 Abs. Basophil 0.03 k/uL Normal 0.00-0.20 [facility] Comment on above: Performed By: #### U VIVIEN URTPRT #### [facility] [employer] [address] [place] [address] Sewage Plant Operator: Gideon Bullock MD Abs.Imm.Granulocyte 0.04 k/uL Normal 0.00-0.30 [facility] Comment on above: Performed By: #### U VIVIEN URTPRT #### [address] [address] Sewage Plant Operator: Gideon Bullock MD Abs.Neutrophil (Seg) 5.25 k/uL Normal 1.50-8.10 [facility] Comment on above: Performed By: #### U AMIC, URTPRT #### [address] [address] Sewage Plant Operator: Gideon Bullock MD Basophils/100 WBC (Bld) 0 % Normal 0-2 [facility] Comment on above: Performed By: #### U AMIC, URTPRT #### [address] [address] Sewage Plant Operator: Gideon Bullcok MD Eosinophils (Bld) [#/Vol] 0.18 10*3/uL Normal 0.00-0.44 [facility] Comment on above: Performed By: #### U AMIC, URTPRT #### [address] [address] Sewage Plant Operator: Gideon Bullock MD Eosinophils/100 WBC (Bld) 2 % Normal 1-4 [facility] Comment on above: Performed By: #### U AMIC, URTPRT #### [address] [address] Sewage Plant Operator: Gideon Bullock MD Erythrocyte distribution width (RBC) [Ratio] 13.1 % Normal 11.8-14.4 [facility] Comment on above: Performed By: #### U AMIC, URTPRT #### [address] [address] Sewage Plant Operator: Gideon Bullock MD Hematocrit (Bld) [Volume fraction] 35.1 % Low 36.3-47.1 [facility] Comment on above: Performed By: #### U AMIC, URTPRT #### [address] [address] Sewage Plant Operator: Gideon Bullock MD Hemoglobin (Bld) [Mass/Vol] 11.9 g/dL Normal 11.9-15.1 [facility] Comment on above: Performed By: #### U AMIC, URTPRT #### [address] [address] Sewage Plant Operator: Gideon Bullock MD Immature granulocytes/100 WBC (Bld) 1 % High 0 [facility] Comment on above: Performed By: #### U AMIC, URTPRT #### [address] [address] Sewage Plant Operator: Gideon Bullock MD Lymphocytes (Bld) [#/Vol] 1.81 10*3/uL Normal 1.10-3.70 [facility] Comment on above: Performed By: #### U AMIC, URTPRT #### [address] [address] Sewage Plant Operator: Gideon Bullock MD Lymphocytes/100 WBC (Bld) 23 % Low 24-43 [facility] Comment on above: Performed By: #### U AMIC, URTPRT #### [address] [address] Sewage Plant Operator: Gideon Bullock MD MCH (RBC) [Entitic mass] 28.9 pg Normal 25.2-33.5 [facility] Comment on above: Performed By: #### U AMIC, URTPRT #### [address] [address] Sewage Plant Operator: Gideon Bullock MD MCHC (RBC) [Mass/Vol] 33.9 g/dL Normal 28.4-34.8 [facility] Comment on above: Performed By: #### U AMIC, URTPRT #### [address] [address] Sewage Plant Operator: Gideon Bullock MD MCV (RBC) [Entitic vol] 85.2 fL Normal 82.6-102.9 [facility] Comment on above: Performed By: #### U AMIC, URTPRT #### [address] [address] Sewage Plant Operator: Gideon Bullock MD Monocytes (Bld) [#/Vol] 0.62 10*3/uL Normal 0.10-1.20 [facility] Comment on above: Performed By: #### U AMIC, URTPRT #### [address] [address] Sewage Plant Operator: Gideon Bullock MD Monocytes/100 WBC (Bld) 8 % Normal 3-12 [facility] Comment on above: Performed By: #### U AMIC, URTPRT #### [address] [address] Sewage Plant Operator: Gideon Bullock MD Neutrophil (Seg) 66 % High 36-65 [facility] Comment on above: Performed By: #### U AMIC, URTPRT #### [address] [address] Sewage Plant Operator: Gideon Bullock MD NRBC Automated 0.0 per 100 WBC Normal 0.0 [facility] Comment on above: Performed By: #### U AMIC, URTPRT #### [address] [address] Sewage Plant Operator: Gideon Bullock MD Platelet mean volume (Bld) [Entitic vol] 10.9 fL Normal 8.1-13.5 [facility] Comment on above: Performed By: #### U AMIC, URTPRT #### [facility] [employer] [address] [place] [address] Sewage Plant Operator: Gideon Bullock MD Platelets (Bld) [#/Vol] 175 10*3/uL Normal 138-453 [facility] Comment on above: Performed By: #### U AMIC, URTPRT #### [facility] [address] [place] [address] Sewage Plant Operator: Gideon Bullock MD RBC (Bld) [#/Vol] 4.12 10*6/uL Normal 3.95-5.11 [facility] Comment on above: Performed By: #### U AMIC, URTPRT #### [facility] [address] [place] [address] Sewage Plant Operator: Gideon Bullock MD WBC (Bld) [#/Vol] 7.9 10*3/uL Normal 3.5-11.3 [facility] Comment on above: Performed By: #### U AMIC, URTPRT #### [facility] [employer] [address] [place] [address] Sewage Plant Operator: Gideon Bullock MD Comp Metabolic Profon 2023 Albumin [Mass/Vol] 3.7 g/dL Normal 3.5-5.2 [facility] Comment on above: Performed By: #### U AMIC, URTPRT #### [facility] [employer] [address] [place] [address] Sewage Plant Operator: Gideon Bullock MD Albumin/Glob Ratio 1.0 Normal 1.0-2.5 [facility] Comment on above: Performed By: #### U AMIC, URTPRT #### [facility] [employer] [facility] [place] [address] Sewage Plant Operator: Gideon Bullock MD Alkaline Phos 105 U/L High 35-104 [facility] Comment on above: Performed By: #### U AMIC, URTPRT #### [facility] [employer] [address] [place] [address] Sewage Plant Operator: Gideon Bullock MD ALT [Catalytic activity/Vol] 18 U/L Normal 10-35 [facility] Comment on above: Performed By: #### U AMIC, URTPRT #### [address] [address] Sewage Plant Operator: Gideon Bullock MD Anion gap [Moles/Vol] 10 mmol/L Normal 9-16 [facility] Comment on above: Performed By: #### U AMIC, URTPRT #### [address] [address] Sewage Plant Operator: Gideon Bullock MD AST [Catalytic activity/Vol] 16 U/L Normal 10-35 [facility] Comment on above: Performed By: #### U AMIC, URTPRT #### [address] [address] Sewage Plant Operator: Gideon Bullock MD Bilirubin [Mass/Vol] 0.2 mg/dL Normal 0.00-1.20 [facility] Comment on above: Performed By: #### U AMIC, URTPRT #### [address] [address] Sewage Plant Operator: Gideon Bullock MD Calcium [Mass/Vol] 9.0 mg/dL Normal 8.6-10.4 [facility] Comment on above: Performed By: #### U AMIC, URTPRT #### [address] [address] Sewage Plant Operator: Gideon Bullock MD Chloride [Moles/Vol] 106 mmol/L Normal 98-107 [facility] Comment on above: Performed By: #### U AMIC, URTPRT #### [facility] [employer] [address] [place] [address] Sewage Plant Operator: Gideon Bullock MD CO2 [Moles/Vol] 21 mmol/L Normal 20-31 [facility] Comment on above: Performed By: #### U AMIC, URTPRT #### [facility] [employer] [address] [place] [address] Sewage Plant Operator: Gideon Bullock MD Creatinine [Mass/Vol] 0.4 mg/dL Low 0.50-0.90 [facility] Comment on above: Performed By: #### U AMIC, URTPRT #### [address] [address] Sewage Plant Operator: Gideon Bullock MD GFR/1.73 sq M.predicted among non-blacks MDRD (S/P/Bld) [Vol rate/Area] mL/min/{1.73_m2} Normal >60 [facility] Comment on above: Result Comment: These [...] affects renal tubular secretion. Performed By: #### U AMIC URTPRT #### [facility] [employer] [address] [place] [address] Sewage Plant Operator: Gideon Bullock MD Glucose [Mass/Vol] 74 mg/dL Normal 74-99 [facility] Comment on above: Performed By: #### U AMIC, URTPRT #### [facility] [employer] [address] [place] [address] Sewage Plant Operator: Gideon Bullock MD Potassium [Moles/Vol] 3.9 mmol/L Normal 3.7-5.3 [facility] Comment on above: Performed By: #### U AMIC, URTPRT #### [facility] [employer] [address] [place] [address] Sewage Plant Operator: Gideon Bullock MD Protein [Mass/Vol] 6.9 g/dL Normal 6.6-8.7 [facility] Comment on above: Performed By: #### U AMIC, URTPRT #### [address] [address] Sewage Plant Operator: Gideon Bullock MD Sodium [Moles/Vol] 137 mmol/L Normal 136-145 [facility] Comment on above: Performed By: #### U AMIC, URTPRT #### [address] [address] Sewage Plant Operator: Gideon Bullokc MD Urea nitrogen [Mass/Vol] 9 mg/dL Normal 6-20 [facility] Comment on above: Performed By: #### U AMIC, URTPRT #### [address] [address] Sewage Plant Operator: Gideon Bullock MD Protein,Tot,[place] [employer]ron 2023 Creatinine [Mass/Vol] 123.0 mg/dL Normal 28.0-217.0 [facility] Comment on above: Performed By: #### U AMIC, URTPRT #### [address] [address] Sewage Plant Operator: Gideon Bullock MD Tot Prot. Conc. 14 mg/dL Normal [facility] Comment on above: Result Comment: No n ormal range established. Performed By: #### U AMIC, URTPRT #### [address] [address] Sewage Plant Operator: Gideon Bullock MD TP/Cre Ratio 0.12 Normal [facility] Comment on above: Performed By: #### U AMIC, URTPRT #### [address] [address] Sewage Plant Operator: Gideon Bullock MD Urinalysis w/ Microon 2023 Bacteria None Normal NONE [facility] Comment on above: Performed By: #### U AMIC, URTPRT #### [address] [address] Sewage Plant Operator: Gideon Bullock MD Bilirubin, SemiQt,Ur Negative Normal NEG [facility] Comment on above: Performed By: #### U AMIC, URTPRT #### [address] [address] Sewage Plant Operator: Gideon Bullock MD Blood, Urine MODERATE Abnormal NEG [facility] Comment on above: Performed By: #### U AMIC, URTPRT #### [address] [address] Sewage Plant Operator: Gideon Bullock MD Casts 0 TO 2 HYALINE Normal 0-8 [facility] Comment on above: Result Comment: Refe rence range defined for non-centrifuged specimen. Performed By: #### U AMIC, URTPRT #### [address] [address] Sewage Plant Operator: Gideon Bullock MD Clarity (U) Clear Normal CLEAR [facility] Comment on above: Performed By: #### U AMIC, URTPRT #### [address] [address] Sewage Plant Operator: Gideon Bullock MD Color (U) Yellow Normal YEL [facility] Comment on above: Performed By: #### U AMIC, URTPRT #### [address] [address] Sewage Plant Operator: Gideon Bullock MD Epithelial cells LM Ql (Urine sed) 5 TO 10 Normal 0-5 [facility] Comment on above: Performed By: #### U AMIC, URTPRT #### [address] [address] Sewage Plant Operator: Gideon Bullock MD Glucose Ql (U) Negative Normal NEG [facility] Comment on above: Performed By: #### U AMIC, URTPRT #### [address] [address] Sewage Plant Operator: Gideon Bullock MD Ketones Ql (U) Negative Normal NEG [facility] Comment on above: Performed By: #### U AMIC, URTPRT #### [address] [address] Sewage Plant Operator: Gideon Bullock MD Leukocyte esterase Test strip Ql (U) TRACE Abnormal NEG [facility] Comment on above: Performed By: #### U AMIC, URTPRT #### [address] [address] Sewage Plant Operator: Gideon Bullock MD Nitrite,Ur Negative Normal NEG [facility] Comment on above: Performed By: #### U AMIC, URTPRT #### [address] [address] Sewage Plant Operator: Gideon Bullock MD PH,Ur 6.0 Normal 5.0-8.0 [facility] Comment on above: Performed By: #### U AMIC, URTPRT #### [address] [address] Sewage Plant Operator: Gideon Bullock MD Protein Ql (U) Negative Normal NEG [facility] Comment on above: Performed By: #### U AMIC, URTPRT #### [facility] [employer] [address] [place] [address] Sewage Plant Operator: Gideon Bullock MD Spec. [place],Ur 1.021 Normal 1.005-1.030 [facility] Comment on above: Performed By: #### U AMIC, URTPRT #### [address] [address] Sewage Plant Operator: Gideon Bullock MD Urine RBC's 20 TO 50 Normal 0-4 [facility] Comment on above: Result Comment: Refe rence range defined for non-centrifuged specimen. Performed By: #### U AMIC, URTPRT #### [address] [address] Sewage Plant Operator: Gideon Bullock MD Urine WBC's 0 TO 2 Normal 0-5 [facility] Comment on above: Performed By: #### U AMIC, URTPRT #### [facility] [employer] [address] [place] [address] Sewage Plant Operator: Gideon Bullock MD Urobilinogen,Ur Normal Normal 0.0-1.0 [facility] Comment on above: Performed By: #### U AMIC, URTPRT #### [address] [address] Sewage Plant Operator: Gideon Bullock MD Vaginitis DNA Probeon 2023 Litzy Negative Normal NEG [facility] Comment on above: Result Comment: for Litzy sp. Method of testing is a DNA probe intended for detection and identification of Litzy species, Gardnerella vaginalis, and Trichomonas vaginalis nucleic acid in vaginal fluid specimens from patients with symptoms of vaginitis/vaginosis. Performed By: #### U AMIC, URTPRT #### [facility] [employer] [address] [place] [address] Sewage Plant Operator: Gideon Bullock MD Gardnerella Positive Abnormal NEG [facility] Comment on above: Result Comment: for Gardnerella vaginalis Performed By: #### U AMIC, URTPRT #### [facility] [employer] [address] [place] [address] Sewage Plant Operator: Gideon Bullock MD Trichomonas Negative Normal NEG [facility] Comment on above: Result Comment: for Trichomonas Vaginalis Performed By: #### U AMIC, URTPRT #### [facility] [employer] [address] [place] [phone] Sewage Plant Operator: Gideon Bullock MD Source .VAGINAL SWAB Normal [facility] Comment on above: Performed By: #### U AMIC, URTPRT #### [address] [address] Sewage Plant Operator: Gideon Bullock MD Thyroid Stim. Horm.on 2023 Thyroid Stim. Horm. 1.48 uIU/mL Normal 0.27-4.20 [facility] Comment on above: Performed By: #### U AMIC, URTPRT #### [address] [address] Sewage Plant Operator: Gideon Bullock MD Thyroxine, Freeon 12-06-2023 Thyroxine, Free 0.9 ng/dL Low 0.92-1.68 [facility] Comment on above: Performed By: #### U AMIC, URTPRT #### [address] [address] Sewage Plant Operator: Gideon Bullock MD Thyroid Stim. Horm.on 2023 Thyroid Stim. Horm. 1.66 uIU/mL Normal 0.27-4.20 [facility] Comment on above: Performed By: #### P ROCAC, AT3A, PROSAC, HOCYS, GLYHGB, TSH, LUPPRO, FT4 #### [address] [address] Sewage Plant Operator: Gideon Bullock MD #### AAFPM #### [address] [address] Sewage Plant Operator: Gideon Bullock MD [facility] [address] [place] [address] Sewage Plant Operator: Fantasma Wood MD #### AF5MUT, AMTHFR, APTMUT #### [facility] [address] [place] [address] Sewage Plant Operator: Fantasma Wood MD Thyroxine, Freeon 11-08-2023 Thyroxine, Free 0.9 ng/dL Low 0.92-1.68 [facility] Comment on above: Performed By: #### P ROCAC, AT3A, PROSAC, HOCYS, GLYHGB, TSH, LUPPRO, FT4 #### [facility] [address] [place] [address] Sewage Plant Operator: Gideon Bullock MD #### AAFPM #### [facility] [address] [place] [address] Sewage Plant Operator: Gideon Bullock MD [facility] [address] [place], [place] [id number] Sewage Plant Operator: Fantasma Wood MD #### AF5MUT, AMTHFR, APTMUT #### [facility] [address] [place], [place] [id number] Sewage Plant Operator: Fantasma Wood MD PT Mutation [id number] 10-13-19 24 PT [id number] VARIANT Negative Normal [facility] Comment on above: Result Comment: (NOT E) Indication for testing: Assess genetic risk for thrombosis. NEGATIVE: The Factor II, prothrombin X86637C mutation, was not detected. Other causes of [...] Dsouza, Ph.D. 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 PATHOGENIC VARIANT TESTED: F2 c.*97G>A (B16738Z). CLINICAL SENSITIVITY FOR VENOUS THROMBOSIS: Approximately 10 percent. METHODOLOGY: Polymerase chain reaction and fluorescence monitoring. ANALYTICAL SENSITIVITY AND SPECIFICITY: 99 percent. LIMITATIONS: Diagnostic errors can occur due to rare sequence variations. F2 gene variants, other than c.*97G>A (M54415S), will not be detected. This test was developed and its performance characteristics determined by [facility]. It has not been cleared or approved by the US Food and Drug Administration. This test was performed in a CLIA certified laboratory and is intended for clinical purposes. Counseling and informed consent are recommended for genetic testing. Consent forms are available online. Performed By: [facility] [address] [place] [address] Telephoner: Andrew Duran MD, PhD [place] Number: [id number] Performed By: #### U AMIC, URTPRT #### [facility] [address] [place] [address] [phone] Sewage Plant Operator: Gideon Bullock MD PT PCR SPECIMEN Whole Blood Normal [facility] Comment on above: Performed By: #### U AMIC, URTPRT #### [facility] [address] [place] [address] [phone] Sewage Plant Operator: Gideon Bullock MD Factor V Mutationon 10-12-19 24 F 5 SPECIMEN Whole Blood Normal [facility] Comment on above: Performed By: #### U AMIC, URTPRT #### [facility] [place], [place] [id number] Sewage Plant Operator: Gideon Bullock MD FACTOR 5 MUTATION Negative Normal [facility] Comment on above: Result Comment: (NOT E) Indication for testing: Assess genetic risk for thrombosis. NEGATIVE: The factor V Leiden variant, c.1601G>A; p.Esi656Dii, was not detected. This does not exclude [...] function in the F5 gene variant c.1601G>A (p.Zxt398Ucq). Legacy nomenclature: [id number] (1691G>A) CLINICAL SENSITIVITY: 20-50 percent of individuals with an isolated VTE have the FVL variant. METHODOLOGY: Polymerase chain reaction and fluorescence monitoring. ANALYTICAL SENSITIVITY AND SPECIFICITY: 99 percent. LIMITATIONS: Diagnostic errors can occur due to rare sequence variations. F5 gene mutations, other than p.Vac899Hkt, will not be detected. This test was developed and its performance characteristics determined by [facility]. It has not been cleared or approved by the US Food and Drug Administration. This test was performed in a CLIA certified laboratory and is intended for clinical purposes. Counseling and informed consent are recommended for genetic testing. Consent forms are available online. 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 Normal [facility] Comment on above: Performed By: #### U AMIC, URTPRT #### [facility] [address] [place] [address] Sewage Plant Operator: Gideon Bullock MD MTHFR 655C>T Mut Negative Normal [facility] Comment on above: Performed By: #### U AMIC, URTPRT #### [facility] [address] [place] [address] Sewage Plant Operator: Gideon Bullock MD MTHFR Interpretation See Note Normal [facility] Comment on above: Result Comment: (NOT E) Indication for testing: Determine genetic contribution to hyperhomocysteinemia. 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 The [employer] Practice Guidelines indicate [...] a contributing factor to hyperhomocysteinemia. Variants Tested: c.665C>T(p.Zwr115Iqw) and c.1286A>C(p.Cte150Prc). (legacy names C677T and F6507B, respectively). Clinical Sensitivity: Undefined; hyperhomocysteinemia is caused [...] developed and its performance characteristics determined by [facility]. It has not been cleared or approved by the US Food and Drug Administration. This test was performed in a CLIA certified laboratory and is intended for clinical purposes. Counseling and informed consent are recommended for genetic testing. Consent forms are available online. Performed By: [facility] [address] [place] [address] Telephoner: Andrew Duran MD, PhD CLIA Number: [id number] Performed By: #### U AMI, URTPRT #### [facility] [address] [place] [address] Sewage Plant Operator: Gideon Bullock MD MTHFR SPECIMEN Whole Blood Normal [facility] Comment on above: Performed By: #### U VIVIEN, URTPRT #### [facility] [address] [place] [address] Sewage Plant Operator: Gideon Bullock MD AFP, Maternalon 10-11-2023 Determined by Ultrasound Normal [facility] Comment on above: Performed By: #### U AMIC, URTPRT #### [address] [address] Sewage Plant Operator: Gideon Bullock MD Due Date SEE NOTE [facility] Comment on above: Result Comment: Resu lts for Estimated Due Date: 02 26 24 Performed By: #### U AMIC, URTPRT #### [address] [address] Sewage Plant Operator: Gideon Bullock MD Family History No [facility] Comment on above: Performed By: #### U AMIC, URTPRT #### [facility] [employer] [address] [place] [address] Sewage Plant Operator: Gideon Bullock MD Gestat Age (exact) 20 wks, 0 days Normal [facility] Comment on above: Performed By: #### U AMIC, URTPRT #### [address] [address] Sewage Plant Operator: Gideon Bullock MD Ins Req Matern Diab Yes [facility] Comment on above: Performed By: #### U AMIC, URTPRT #### [address] [address] Sewage Plant Operator: Gideon Bullock MD Interpretation Screen Neg Normal [facility] Comment on above: Result Comment: [...] developed and its performance characteristics determined by [facility]. It has not been cleared or approved by the US Food and Drug Administration. This test was performed in a CLIA certified laboratory and is intended for clinical purposes. Performed By: #### U AMIC, URTPRT #### [facility] [employer] [address] [place] [address] Sewage Plant Operator: Gideon Bullock MD [age] [facility] Comment on above: Performed By: #### U AMIC, URTPRT #### [facility] [employer] [address] [place] [address] Sewage Plant Operator: Gideon Bullock MD Maternal Race Nonblack [facility] Comment on above: Performed By: #### U AMIC, URTPRT #### [facility] [employer] [address] [place] [address] Sewage Plant Operator: Gideon Bullock MD Maternal Weight 298.0 lbs. [facility] Comment on above: Performed By: #### U AMIC, URTPRT #### [facility] [employer] [address] [place] [address] Sewage Plant Operator: Gideon Bullock MD MoM for AFP 1.29 [facility] Comment on above: Performed By: #### U AMIC, URTPRT #### [facility] [employer] [address] [place] [address] Sewage Plant Operator: Gideon Bullock MD Number of Fetuses [facility] Comment on above: Performed By: #### U AMIC, URTPRT #### [facility] [employer] [address] [place] [address] Sewage Plant Operator: Gideon Bullock MD Patient's AFP 39 ng/mL [facility] Comment on above: Performed By: #### U AMIC, URTPRT #### [facility] [employer] [address] [place] [address] Sewage Plant Operator: Gideon Bullock MD Smoking No [facility] Comment on above: Performed By: #### U AMIC, URTPRT #### [facility] [address] [place] [address] Sewage Plant Operator: Gideon Bullock MD Specimen See Note Normal [facility] Comment on above: Result Comment: (NOT E) Initial sample Performed By: [facility] [address] [facility] [place] [address] Telephoner: Andrew Duran MD, PhD CLIA Number: [id number] Performed By: #### U AMIC, URTPRT #### [facility] [address] [place] [address] Sewage Plant Operator: Gideon Bullock MD AFP, Maternalon 10-10-2023 Current Smoking NO [facility] Comment on above: Performed By: #### U AMIC, URTPRT #### [facility] [employer] [address] [place] [address] Sewage Plant Operator: Gideon Bullock MD Dating US Normal [facility] Comment on above: Performed By: #### U AMIC, URTPRT #### [facility] [employer] [facility] [address] [place] [address] Sewage Plant Operator: Gideon Bullock MD Diabetic YES Normal [facility] Comment on above: Performed By: #### U AMIC, URTPRT #### [facility] [address] [place] [address] Sewage Plant Operator: Gideon Bullock MD Donor Egg NO [facility] Comment on above: Performed By: #### U AMIC, URTPRT #### [facility] [address] [place] [address] Sewage Plant Operator: Gideon Bullock MD Estimated Due Date [id number] [facility] Comment on above: Performed By: #### U AMIC, URTPRT #### [facility] [address] [place] [address] Sewage Plant Operator: Gideon Bullock MD Family History NONE [facility] Comment on above: Performed By: #### U AMIC, URTPRT #### [facility] [address] [place] [address] Sewage Plant Operator: Gideon Bullock MD In Vitro Fertalizat NO [facility] Comment on above: Performed By: #### U AMIC, URTPRT #### [address] [address] Sewage Plant Operator: Gideon Bullock MD LMP date [id number] [facility] Comment on above: Performed By: #### U AMIC, URTPRT #### [facility] [employer] [address] [place] [address] Sewage Plant Operator: Gideon Bullock MD Maternal date [facility] Comment on above: Performed By: #### U AMIC, URTPRT #### [facility] [employer] [address] [place] [address] Sewage Plant Operator: Gideon Bullock MD Maternal Weight 298 [facility] Comment on above: Performed By: #### U AMIC, URTPRT #### [facility] [employer] [address] [place] [address] Sewage Plant Operator: Gideon Bullock MD Monochorionic Twins NO [facility] Comment on above: Performed By: #### U AMIC, URTPRT #### [facility] [employer] [address] [place] [address] Sewage Plant Operator: Gideon Bullock MD Patient Weight Units [facility] Comment on above: Performed By: #### U AMIC, URTPRT #### [facility] [employer] [address] [place] [address] Sewage Plant Operator: Gideon Bullock MD Race (Maternal) NON BLACK [facility] Comment on above: Performed By: #### U AMIC, URTPRT #### [address] [address] Sewage Plant Operator: Gideon Bullock MD Repeat Specimen NO Normal [facility] Comment on above: Performed By: #### U AMIC, URTPRT #### [address] [address] Sewage Plant Operator: Gideon Bullock MD Valproic/Carbamazep NONE Normal [facility] Comment on above: Performed By: #### U AMIC, URTPRT #### [address] [address] Sewage Plant Operator: Gideon Bullock MD Antithrombin III [place] 10-09 Antithrombin III Act 110 % Normal 83-122 [facility] Comment on above: Result Comment: Patients receiving Hirudin may have a falsely decreased Antitrombin III Activity. Performed By: #### P ROCAC, AT3A, PROSAC, HOCYS, GLYHGB, TSH, LUPPRO, FT4 #### [address] [address] Sewage Plant Operator: Gideon Bullock MD #### AAFPM #### [address] [address] Sewage Plant Operator: Gideon Bullock MD [facility] [address] [place], [place] [phone] Sewage Plant Operator: Fantasma Wood MD #### AF5MUT, AMTHFR, APTMUT #### [facility] [address] [place] [address] Sewage Plant Operator: Fantasma Wood MD Lupus Anticoagulanton 2023 Anticardiolipin IgA 1.8 APL Normal 0.0-14.0 [facility] Comment on above: Result Comment: Reference Range: <14.0 Negative 14.0-20.0 Equivocal >20.0 Positive When results are Equivocal, it is recommended to retest after 4-6 weeks. Performed By: #### P ROCAC, AT3A, PROSAC, HOCYS, GLYHGB, TSH, LUPPRO, FT4 #### [address] [address] Sewage Plant Operator: Gideon Bullock MD #### AAFPM #### [address] [address] Sewage Plant Operator: Gideon Bullock MD [facility] [address] [place] [phone] Sewage Plant Operator: Fantasma Wood MD #### AF5MUT, AMTHFR, APTMUT #### [address] [phone] Sewage Plant Operator: Fantasma Wood MD Anticardiolipin IgG <0.5 Normal 0.0-10.0 [facility] Comment on above: Result Comment: Reference Range: <10.0 Negative 10.0-40.0 Equivocal >40.0 Positive Performed By: #### P ROCAC, AT3A, PROSAC, HOCYS, GLYHGB, TSH, LUPPRO, FT4 #### [address] [address] Sewage Plant Operator: Gideon Bullock MD #### AAFPM #### [address] [address] Sewage Plant Operator: Gideon Bullock MD [facility] [address] [place] [phone] Sewage Plant Operator: Fantasma Wood MD #### AF5MUT, AMTHFR, APTMUT #### [facility] [address] [place] [address] [phone] Sewage Plant Operator: Fantasma Wood MD Anticardiolipin IgM <0.8 Normal 0.0-10.0 [facility] Comment on above: Result Comment: Reference Range: <10.0 Negative 10.0-40.0 Equivocal >40.0 Positive Performed By: #### P ROCAC, AT3A, PROSAC, HOCYS, GLYHGB, TSH, LUPPRO, FT4 #### [address] [address] Sewage Plant Operator: Gideon Bullock MD #### AAFPM #### [address] [address] Sewage Plant Operator: Gideon Bullock MD [address] [address] Sewage Plant Operator: Fantasma Wood MD #### AF5MUT, AMTHFR, APTMUT #### [address] [address] Sewage Plant Operator: Fantasma Wood MD Dilute Heladio Viper Negative Normal [facility] Comment on above: Performed By: #### P ROCAC, AT3A, PROSAC, HOCYS, GLYHGB, TSH, LUPPRO, FT4 #### [address] [address] Sewage Plant Operator: Gideon Bullock MD #### AAFPM #### [address] [address] Sewage Plant Operator: Gideon Bullock MD [address] [address] Sewage Plant Operator: Fantasma Wood MD #### AF5MUT, AMTHFR, APTMUT #### [address] [address] Sewage Plant Operator: Fantasma Wood MD Protein C Activityon 024 Protein C Activity 136 % Normal >80 [facility] Comment on above: Result Comment: [...] of Factor VIII. Performed By: #### P ROCAC, AT3A, PROSAC, HOCYS, GLYHGB, TSH, LUPPRO, FT4 #### [facility] [address] [place] [address] Sewage Plant Operator: Gideon Bullock MD #### AAFPM #### [address] [address] Sewage Plant Operator: Gideon Bullock MD [facility] [address] [place] [address] Sewage Plant Operator: Fantasma Wood MD #### AF5MUT, AMTHFR, APTMUT #### [facility] [address] [place] [address] Sewage Plant Operator: Fantasma Wood MD Protein S Activityon 024 Protein S Activity 68 % Normal 59-130 [facility] Comment on above: Result Comment: [...] of Factor VIII. Performed By: #### P ROCAC, AT3A, PROSAC, HOCYS, GLYHGB, TSH, LUPPRO, FT4 #### [facility] [address] [place] [address] Sewage Plant Operator: Gideon Bullock MD #### AAFPM #### [address] [address] Sewage Plant Operator: Gideon Bullock MD [facility] [address] [place] [address] Sewage Plant Operator: Fantasma Wood MD #### AF5MUT, AMTHFR, APTMUT #### [facility] [address] [place] [address] Sewage Plant Operator: Fantasma Wood MD Hemoglobin A1Con 10-09-2023 Glucose [Mass/Vol] 103 mg/dL Normal [facility] Comment on above: Result Comment: The ADA and AACC recommend providing the estimated average glucose result to permit better patient understanding of their HBA1c result. Performed By: #### P ROCAC, AT3A, PROSAC, HOCYS, GLYHGB, TSH, LUPPRO, FT4 #### [address] [address] Sewage Plant Operator: Gideon Bullock MD #### AAFPM #### [address] [address] Sewage Plant Operator: Gideon Bullock MD [facility] [address] [place], [place] [id number] Sewage Plant Operator: Fantasma Wood MD #### AF5MUT, AMTHFR, APTMUT #### [facility] [address] [place], [place] [id number] Sewage Plant Operator: Fantasma Wood MD HbA1c (Bld) [Mass fraction] 5.2 % Normal 4.0-6.0 [facility] Comment on above: Performed By: #### P ROCAC, AT3A, PROSAC, HOCYS, GLYHGB, TSH, LUPPRO, FT4 #### [address] [address] Sewage Plant Operator: Gideon Bullock MD #### AAFPM #### [address] [address] Sewage Plant Operator: Gideon Bullock MD [facility] [address] [place], [place] [id number] Sewage Plant Operator: Fantasma Wood MD #### AF5MUT, AMTHFR, APTMUT #### [facility] [address] [place] [address] Sewage Plant Operator: Fantasma Wood MD Homocysteineon 10-09-2023 Homocysteine 4.3 umol/L Normal 0.0-15.0 [facility] Comment on above: Performed By: #### P ROCAC, AT3A, PROSAC, HOCYS, GLYHGB, TSH, LUPPRO, FT4 #### [address] [address] Sewage Plant Operator: Gideon Bullock MD #### AALESLIEM #### [address] [address] Sewage Plant Operator: Gideon Bullock MD [address] [phone] Sewage Plant Operator: Fantasma Wood MD #### AF5MUT, AMTHFR, APTMUT #### [facility] [address] [place], [place] [phone] Sewage Plant Operator: Fantasma Wood MD Lupus Anticoagulanton 2023 aPTT Coag (Bld) [Time] 27.5 s Normal 23.0-36.5 [facility] Comment on above: Result Comment: IV Heparin Therapy Range: 66.0-92.0 sec Performed By: #### P ROCAC, AT3A, PROSAC, HOCYS, GLYHGB, TSH, LUPPRO, FT4 #### [address] [address] Sewage Plant Operator: Gideon Bullock MD #### AAFPM #### [address] [address] Sewage Plant Operator: Gideon Bullock MD [facility] [address] [place] [phone] Sewage Plant Operator: Fantasma Wood MD #### AF5MUT, AMTHFR, APTMUT #### [facility] [address] [place], [place] [phone] Sewage Plant Operator: Fantasma Wood MD INR Coag (PPP) [Relative time] 1.0 {INR} Normal [facility] Comment on above: Result Comment: Therapeutic Range: Moderate Anticoagulant Intensity: INR = 2.0-3.0 High Anticoagulant Intensity: INR = 2.5-3.5 Performed By: #### P ROCAC, AT3A, PROSAC, HOCYS, GLYHGB, TSH, LUPPRO, FT4 #### [address] [address] Sewage Plant Operator: Gideon Bullock MD #### AAFPM #### [address] [address] Sewage Plant Operator: Gideon Bullock MD [address] [phone] Sewage Plant Operator: Fantasma Wood MD #### AF5MUT, AMTHFR, APTMUT #### [address] [phone] Sewage Plant Operator: Fantasma Wood MD PT Coag (PPP) [Time] 13.1 s Normal 11.7-14.9 [facility] Comment on above: Performed By: #### P ROCAC, AT3A, PROSAC, HOCYS, GLYHGB, TSH, LUPPRO, FT4 #### [address] [address] Sewage Plant Operator: Gideon Bullock MD #### AAFPM #### [address] [address] Sewage Plant Operator: Gideon Bullock MD [address] [phone] Sewage Plant Operator: Fantasma Wood MD #### AF5MUT, AMTHFR, APTMUT #### [address] [phone] Sewage Plant Operator: Fantasma Wood MD Protein,Tot,[place] 2023 Creatinine [Mass/Vol] 120.0 mg/dL Normal 28.0-217.0 [facility] Comment on above: Performed By: #### U AMIC, URTPRT #### [facility] [employer] [address] [place] [address] Sewage Plant Operator: Gideon Bullock MD Tot Prot. Conc. 10 mg/dL Normal [facility] Comment on above: Result Comment: No n ormal range established. Performed By: #### U AMIC, URTPRT #### [address] [address] Sewage Plant Operator: Gideon Bullock MD TP/Cre Ratio 0.08 Normal [facility] Comment on above: Performed By: #### U AMIKaushik URTPRT #### [facility] [employer] [address] [place] [address] Sewage Plant Operator: Gideon Bullock MD Thyroid Stim. Horm.on 2023 Thyroid Stim. Horm. 2.35 uIU/mL Normal 0.27-4.20 [facility] Comment on above: Performed By: #### P ROCAC, AT3A, PROSAC, HOCYS, GLYHGB, TSH, LUPPRO, FT4 #### [address] [address] Sewage Plant Operator: Gideon Bullock MD #### AAFPM #### [address] [address] Sewage Plant Operator: Gideon Bullock MD [address] [address] Sewage Plant Operator: Fantasma Wood MD #### AF5MUT, AMTHFR, APTMUT #### [facility] [address] [place] [address] Sewage Plant Operator: Fantasma Wood MD Thyroxine, Freeon 10-09-2023 Thyroxine, Free 0.9 ng/dL Low 0.92-1.68 [facility] Comment on above: Performed By: #### P ROCAC, AT3A, PROSAC, HOCYS, GLYHGB, TSH, LUPPRO, FT4 #### [facility] [address] [place] [address] Sewage Plant Operator: Gideon Bullock MD #### AAFPM #### [facility] [address] [place] [address] Sewage Plant Operator: Gideon Bullock MD [facility] [address] [place], [place] [phone] Sewage Plant Operator: Fantasma Wood MD #### AF5MUT, AMTHFR, APTMUT #### [facility] [address] [place] [address] Sewage Plant Operator: Fantasma Wood MD XR FOOT RT [...] of acute osseous abnormality. Finalized by Brigido lBas MD on 09/10/2023 12:57 PM Normal [facility] MR BRAIN W WO CONTon 024 MR [...] Rice MD on 06/14/2023 8:30 AM Normal [facility] BASIC METABOLIC PANLon 05-16 Anion gap [Moles/Vol] 10 mmol/L Normal 5-15 [facility] Comment on above: Performed By: #### B PHYLLIS CBCA #### [facility] ([id number]) [address] [place] [address] 59897 Calcium [Mass/Vol] 8.9 mg/dL Normal 8.5-10.5 [facility] Comment on above: Performed By: #### B PHYLLIS CBCA #### [facility] ([id number]) [address] [place] [address] 15567 Chloride [Moles/Vol] 107 mmol/L Normal 98-109 [facility] Comment on above: Performed By: #### B PHYLLIS CBCA #### [facility] ([id number]) [address] [place] [address] 99489 CO2 [Moles/Vol] 18 mmol/L Low 22-32 [facility] Comment on above: Performed By: #### B PHYLLIS CBCA #### [facility] ([id number]) [address] [place] [address] 54264 Creatinine [Mass/Vol] 0.58 mg/dL Normal 0.40-1.00 [facility] Comment on above: Result Comment: METH OD TRACEABLE TO IDMS STANDARD Performed By: #### B PHYLLIS CBCA #### [facility] ([id number]) [address] [place] [address] 32517 eGFR (CKD-EPI) NON-RACE DEPENDENT >90 Normal >59 [facility] Comment on above: Result Comment: Reported eGFR is based on the CKD-EPI 2020 equation that does not use a race coefficient. Performed By: #### B PHYLLIS CBCA #### [facility] ([id number]) [address] [place] [address] 95505 Glucose [Mass/Vol] 109 mg/dL High 65-99 [facility] Comment on above: Performed By: #### B PHYLLIS CBCA #### [facility] ([id number]) [address] [place] [address] 33874 Potassium [Moles/Vol] 3.3 mmol/L Low 3.5-5.0 [facility] Comment on above: Performed By: #### B PHYLLIS CBCA #### [facility] ([id number]) [address] [place] [address] 81077 Sodium [Moles/Vol] 135 mmol/L Normal 134-146 [facility] Comment on above: Performed By: #### B PHYLLIS CBCA #### [facility] ([id number]) [address] [place] [address] 44429 Urea nitrogen [Mass/Vol] 16 mg/dL Normal 5-23 [facility] Comment on above: Performed By: #### B PHYLLIS CBCA #### [facility] ([id number]) [address] [place] [address] 59083 CBC AND AUTO DIFFon 05-16- 24 ABSOLUTE BASOPHIL 0.1 X10E9/L Normal 0.0-0.2 [facility] Comment on above: Performed By: #### B PHYLLIS CBCA #### [facility] ([id number]) [address] [place] [address] 40774 ABSOLUTE NEUTROPHIL 4.6 X10E9/L Normal 1.5-6.6 [facility] Comment on above: Performed By: #### B MP, CBCA #### [facility] ([id number]) [address] [place] [address] 43218 Basophils/100 WBC (Bld) 0.7 % Normal [facility] Comment on above: Performed By: #### B MP, CBCA #### [facility] ([id number]) [address] [place] [address] 63585 Eosinophils (Bld) [#/Vol] 0.3 10*3/uL Normal 0.0-0.4 [facility] Comment on above: Performed By: #### B MP, CBCA #### [facility] ([id number]) [address] [place] [address] 05974 Eosinophils/100 WBC (Bld) 4.4 % Normal [facility] Comment on above: Performed By: #### B MP, CBCA #### [facility] ([id number]) [address] [place] [address] 01598 Erythrocyte distribution width (RBC) [Ratio] 13.3 % Normal 11.5-15.0 [facility] Comment on above: Performed By: #### B MP, CBCA #### [facility] ([id number]) [address] [place] [address] 76730 Hematocrit (Bld) [Volume fraction] 40.5 % Normal 35-47 [facility] Comment on above: Performed By: #### B MP, CBCA #### [facility] ([id number]) [address] [place] [address] 01177 Hemoglobin (Bld) [Mass/Vol] 13.8 g/dL Normal 11.7-15.5 [facility] Comment on above: Performed By: #### B MP, CBCA #### [facility] ([id number]) [address] [place] [address] 49725 Lymphocytes (Bld) [#/Vol] 2.0 10*3/uL Normal 1.0-3.5 [facility] Comment on above: Performed By: #### B MP, CBCA #### [facility] ([id number]) [address] [place] [address] 51610 Lymphocytes/100 WBC (Bld) 26.3 % Normal [facility] Comment on above: Performed By: #### B MP, CBCA #### [facility] ([id number]) [address] [place] [address] 88655 MCH (RBC) [Entitic mass] 27.9 pg Normal 27-34 [facility] Comment on above: Performed By: #### B PHYLLIS, CBCA #### [facility] ([id number]) [address] [place] [address] 76100 MCHC (RBC) [Mass/Vol] 34.0 g/dL Normal 32-36 [facility] Comment on above: Performed By: #### B PHYLLIS, CBCA #### [facility] ([id number]) [address] [place] [address] 77802 MCV (RBC) [Entitic vol] 82 fL Normal 80-100 [facility] Comment on above: Performed By: #### B PHYLLIS, CBCA #### [facility] ([id number]) [address] [place] [address] 89209 Monocytes (Bld) [#/Vol] 0.5 10*3/uL Normal 0-0.9 [facility] Comment on above: Performed By: #### B PHYLLIS, CBCA #### [facility] ([id number]) [address] [place] [address] 42826 Monocytes/100 WBC (Bld) 6.9 % Normal [facility] Comment on above: Performed By: #### B PHYLLIS, CBCA #### [facility] ([id number]) [address] [place] [address] 54020 Neutrophils/100 WBC (Bld) 61.7 % Normal [facility] Comment on above: Performed By: #### B PHYLLIS CBCA #### [facility] ([id number]) [address] [place] [address] 08446 Platelet mean volume (Bld) [Entitic vol] 8.4 fL Normal 7-12 [facility] Comment on above: Performed By: #### B PHYLLIS CBCA #### [facility] ([id number]) [address] [place] [address] 77214 Platelets (Bld) [#/Vol] 247 10*3/uL Normal 150-450 [facility] Comment on above: Performed By: #### B PHYLLIS, CBCA #### [facility] ([id number]) [address] [place] [address] 41727 RBC COUNT 4.93 X10E12/L Normal 3.80-5.20 [facility] Comment on above: Performed By: #### B PHYLLIS CBCA #### [facility] ([id number]) [address] [place] [address] 61870 WBC (Bld) [#/Vol] 7.5 10*3/uL Normal 4.0-11.0 [facility] Comment on above: Performed By: #### B PHYLLIS CBCA #### [facility] ([id number]) [address] [place] [address] BRAIN WO CONTon CT BRAIN WO [...] Leon MD on 05/16/2023 10:57 AM Normal [facility] HCG ( test) Ql (U)o n 05-16-2023 Beta HCG ( test) Ql (U) Negative Normal NEG [facility] Comment on above: Performed By: #### 2 106-3 #### [facility] ([id number]) [address] [place] [address] 89595 URN MACROSCOPIC NURon 2023 BILIRUBIN TADEO Negative [facility] Comment on above: Performed By: #### N UM #### [facility] ([id number]) [address] [place] [address] 21280 BLOOD/HGB TADEO Negative Normal [facility] Comment on above: Performed By: #### N UM #### [facility] ([id number]) [address] [place] [address] 61987 GLUCOSE TADEO Negative Normal [facility] Comment on above: Performed By: #### N UM #### [facility] ([id number]) [address] [place] [address] 25479 KETONES TADEO Negative Normal [facility] Comment on above: Performed By: #### N UM #### [facility] ([id number]) [address] [place] [address] 40244 LEUKOCYTE ESTERASE TADEO Negative Normal [facility] Comment on above: Performed By: #### N UM #### [facility] ([id number]) [address] [place] [address] 33470 NITRITE TADEO Negative Normal NEG [facility] Comment on above: Performed By: #### N UM #### [facility] ([id number]) [address] [place] [address] 84976 PH TADEO 6.5 Normal 5.0-8.5 [facility] Comment on above: Performed By: #### N UM #### [facility] ([id number]) [address] [place] [address] 14841 PROTEIN TADEO Negative Normal NEG [facility] Comment on above: Performed By: #### N UM #### [facility] ([id number]) [address] [place] [address] 82712 SPECIFIC GRAVITY TADEO 1.025 Normal 1.003-1.035 [facility] Comment on above: Performed By: #### N UM #### [facility] ([id number]) [address] [place] [address] 98320 UROBILINOGEN TADEO 0.2 eu/dL Normal <1.1 [facility] Comment on above: Performed By: #### N UM #### [facility] ([id number]) [address] [place] [address] 74417 COVID + FLU Quick Testingon 02-05-2023 SARS-CoV-2 (COVID-19) RNA SARANYA+probe Ql (Unsp spec) Negative [facility] [employer] Other COVID + FLU Quick Testing Negative [facility] [employer] Other Aerobic Cultureon 12-22-2022 Aerobic Culture Comment tube 2 No Growth 2 Days Comment tube 2 No Anaerobes Isolated 3 Days Comment tube 2 Gram Stain Result No White Blood Cells Seen No Bacteria Seen PERFORMED BY: [facility] [address] [facility] [place] [address] PATHOLOGIST REGIONAL ACCOUNT EXECUTIVE ALLEN COATES M.D. Normal [facility] Comment on above: Performed By: #### C BC, PT, PTT #### [facility] [address] [place] [address] CSF PCR Panelon 12-22-2022 CSF PCR Panel [...] Varicella zoster virus Not detected PERFORMED BY: [place] [address] PATHOLOGIST REGIONAL ACCOUNT EXECUTIVE ALLEN COATES M.D. [facility] Comment on above: Performed By: #### C SF PCR PANEL #### [address] Cell Count Differential,CSFo n 12-22-2022 Appearance, CSF Clear Normal Clear [facility] Comment on above: Order Comment: Comme nt tube 1 Performed By: #### C SFCCDIFF #2, CSF TP #2, CSF GLU #2, CSF GLU, CSF TP, GS, AERC, CSFCCDIFF #### [address] Order Comment: Comme nt tube 4 Color, CSF Colorless Normal Colorless [facility] Comment on above: Order Comment: Comme nt tube 1 Performed By: #### C SFCCDIFF #2, CSF TP #2, CSF GLU #2, CSF GLU, CSF TP, GS, AERC, CSFCCDIFF #### [address] Order Comment: Comme nt tube 4 CSF Supernatant Color Colorless Normal Colorless [facility] Comment on above: Order Comment: Comme nt tube 1 Performed By: #### C SFCCDIFF #2, CSF TP #2, CSF GLU #2, CSF GLU, CSF TP, GS, AERC, CSFCCDIFF #### [place] [address] [place] Order Comment: Comme nt tube 4 CSF Volume, Total 29.4 mL Normal [facility] Comment on above: Order Comment: Comme nt tube 1 Performed By: #### C SFCCDIFF #2, CSF TP #2, CSF GLU #2, CSF GLU, CSF TP, GS, AERC, CSFCCDIFF #### [facility] [address] Order Comment: Comme nt tube 4 Lymphocytes, CSF 4 Normal [facility] Comment on above: Order Comment: Comme nt tube 1 Result Comment: The reference interval and other method performance specifications have not been established for this body fluid. The test result must be integrated into the clinical context for interpretation. Performed By: #### C SFCCDIFF #2, CSF TP #2, CSF GLU #2, CSF GLU, CSF TP, GS, AERC, CSFCCDIFF #### [facility] [address] [place] [address] RBC, CSF 2 /uL [facility] Comment on above: Order Comment: Comme nt tube 1 Result Comment: The reference interval and other method performance specifications have not been established for this body fluid. The test result must be integrated into the clinical context for interpretation. Performed By: #### C SFCCDIFF #2, CSF TP #2, CSF GLU #2, CSF GLU, CSF TP, GS, AERC, CSFCCDIFF #### [facility] [address] [place] [address] TNC, CSF 1 /uL Normal 0-5 [facility] Comment on above: Order Comment: Comme nt tube 1 Performed By: #### C SFCCDIFF #2, CSF TP #2, CSF GLU #2, CSF GLU, CSF TP, GS, AERC, CSFCCDIFF #### [facility] [address] [place] [address] Order Comment: Comme nt tube 4 Tube Number Tested, CSF Tube Number: 1 [facility] Comment on above: Order Comment: Comme nt tube 1 Result Comment: PERF ORMED BY: [place] [address] PATHOLOGIST REGIONAL ACCOUNT EXECUTIVE ALLEN COATES M.D. Performed By: #### C SFCCDIFF #2, CSF TP #2, CSF GLU #2, CSF GLU, CSF TP, GS, AERC, CSFCCDIFF #### [facility] [address] [place] [address] Cell Count Differential,CSF #2on 12-22-2022 Lymphocytes, CSF 7 Normal [facility] Comment on above: Order Comment: Comme nt tube 4 Result Comment: The reference interval and other method performance specifications have not been established for this body fluid. The test result must be integrated into the clinical context for interpretation. Performed By: #### C SFCCDIFF #2, CSF TP #2, CSF GLU #2, CSF GLU, CSF TP, GS, AERC, CSFCCDIFF #### [address] RBC, CSF 1 /uL Normal [facility] Comment on above: Order Comment: Comme nt tube 4 Result Comment: The reference interval and other method performance specifications have not been established for this body fluid. The test result must be integrated into the clinical context for interpretation. Performed By: #### C SFCCDIFF #2, CSF TP #2, CSF GLU #2, CSF GLU, CSF TP, GS, AERC, CSFCCDIFF #### [address] Tube Number Tested, CSF Tube Number: 4 Normal [facility] Comment on above: Order Comment: Comme nt tube 4 Result Comment: PERF ORMED BY: [place] [address] PATHOLOGIST REGIONAL ACCOUNT EXECUTIVE ALLEN COATES M.D. Performed By: #### C SFCCDIFF #2, CSF TP #2, CSF GLU #2, CSF GLU, CSF TP, GS, AERC, CSFCCDIFF #### [facility] [address] [place] [address] Cerebrospinal fluid post-adams trifugation appearance determinationOrdered By: Razia Muller on 12-22-2022 Appearance (Spun CSF) Colorless Colorless [facility] Cerebrospinal fluid sample t ube volume measurementOrdered By: Razia Muller on 12-22-2022 Specimen volume (CSF) 29.4 mL [facility] Color CSFOrdered By: Razia longo on 12-22-2022 Color (CSF) Colorless Colorless [facility] Glucose, CSF #2on 12-22-2022 Glucose, CSF #2 71 mg/dL High 40-70 [facility] Comment on above: Order Comment: Comme nt tube 4 Performed By: #### C BC, PT, PTT #### [facility] [address] [place] [address] [place] Glucose, Spinal Fluidon Glucose, Spinal Fluid 73 mg/dL High 40-70 [facility] Comment on above: Order Comment: Comme nt tube 1 Performed By: #### C SFCCDIFF #2, CSF TP #2, CSF GLU #2, CSF GLU, CSF TP, GS, AERC, CSFCCDIFF #### [facility] [address] [place] [address] Gram Stainon 12-22-2022 Microscopic observation Gram stain Nom (Unsp spec) Comment tube 2 Gram Stain Result No White Blood Cells Seen No Bacteria Seen PERFORMED BY: [place] [address] PATHOLOGIST REGIONAL ACCOUNT EXECUTIVE ALLEN OCATES M.D. [facility] Comment on above: Performed By: #### C SFCCDIFF #2, CSF TP #2, CSF GLU #2, CSF GLU, CSF TP, GS, AERC, CSFCCDIFF #### [facility] [address] [place] [address] IR guided lumbar puncture LP on 12-22-2022 IR guided lumbar puncture LP [facility] [address] [place] [address] Interventional Radiology Rpt Signed Patient: Yani Stevens MR#: [id number] : 1990 Acct:[id number] Age/Sex: 32 / F ADM Date: 12/22/22 Loc: XD Room: Type: [facility] Attending Dr: Razia Muller MILITARY ADMINISTRATIVE TECHNICIAN-DRUM TESTER-C Copies to: aRzia Muller APRN-DRUM TESTER-C Ordering Provider: TONJA Jimenez Date of Service: [...] Vernon Lin M.D.12/22/2022 1:07 PM Dictation Location: [place] [address] Transcribed By: [facility] 12/22/22 1307 Dictated By: Vernon Lin II, MD 12/22/22 1253 Signed By: 12/22/22 1307 [facility] 12-22-2022 L ---- Specimen: [id number] Received: 12/22/22 Status: TERRANCE Earlyhe Num: [id number] Spec Type: Cytology Subm Dr: TONJA Jimenez Tissues: A CSF (CSF) Procedures: Cyto Prepstain, DIFF QWIK, PAPSTN Age/ Patient Sex Location Account Attending Physician Yani Stevens 32/F XD [id number] TONJA Jimenez SPEC NUM: [id number] RECD: 12/22/22 STATUS: TERRANCE PAN NUM: [id number] TOMASA: 12/22/[address] [facility] [address]: TONJA Jimenez ENTERED: 12/22/[address] [facility] [address]: Vernon Lin II, MD SPEC TYPE: Cytology DEPT: [facility] ENTERED BY: [id number] RECV BY: [id number] ORDERED: Cyto Prepstain, DIFF QWIK, PAPSTN ORDERED: [...] (SS/nh) Specimen: [id number] Received: 12/22/22 Status: TERRANCE [place] Num: [id number] Spec Type: Cytology Subm Dr: Razia Muller APRN-DRUM TESTER-C Tissues: A CSF (CSF) Procedures: Cyto Prepstain, DIFF QWIK, PAPSTN Patient: Yani Stevens [id number] (Continued) Signed (signature on file) Dimas De Anda MD 12/26/22 0905 Normal [facility] Manual cerebrospinal fluid e rythrocytes count (number/volume)Ordered By: Razia Muller on 12-22-2022 RBC Manual cnt (CSF) [#/Vol] 1 /uL [facility] Comment on above: The reference interv al and other method performance specifications have not been established for this body fluid. The test result must be integrated into the clinical context for interpretation. No Panel InformationOrdered By: Razia Muller on 12-22-2022 CSF Appearance Clear Clear [facility] CSF Eosinophils N/A [facility] CSF Lymphocytes 7 [facility] Comment on above: The reference interv al and other method performance specifications have not been established for this body fluid. The test result must be integrated into the clinical context for interpretation. CSF Monocytes N/A [facility] CSF Neutrophils N/A [facility] CSF Tube Number Tube number: 4 [facility] Nucleated cells [#/volume] i n Cerebral spinal fluid by Manual countOrdered By: Razia Muller on 12-22-2022 Nucleated cells Manual cnt (CSF) [#/Vol] 0.001 10*3/uL 0-5 [facility] Total Protein, CSF #2on 09-0 Total Protein, CSF #2 31 mg/dL Normal 15-45 [facility] Comment on above: Order Comment: Comme nt tube 4 Result Comment: PERF ORMED BY: [facility] [address] [place] [address] PATHOLOGIST REGIONAL ACCOUNT EXECUTIVE ALLEN COATES M.D. Performed By: #### C BC, PT, PTT #### [facility] [address] Total Protein, Spinal Fluido n 12-22-2022 Total Protein, Spinal Fluid 34 mg/dL Normal 15-45 [facility] Comment on above: Order Comment: Comme nt tube 1 Result Comment: PERF ORMED BY: [place] [address] PATHOLOGIST REGIONAL ACCOUNT EXECUTIVE ALLEN COATES M.D. Performed By: #### C BC, PT, PTT #### [address] Activated partial thrombopla stin time (aPTT) in platelet poor plasma by coagulation aOrdered By: Razia Muller on 12-20-2022 aPTT Coag (PPP) [Time] 32.8 s 25.1-36.5 [facility] Basophils Auto (Bld) [#/Vol] Ordered By: Razia Muller on 12-20-2022 Basophils (Bld) [#/Vol] 0.0 10*3/uL 0.0-0.2 [facility] Basophils/100 WBC Auto (Bld) Ordered By: Razia Muller on 12-20-2022 Basophils/100 WBC (Bld) 0.5 % . [facility] Complete Blood Count Auto Di ffon 12-20-2022 Basophils (Bld) [#/Vol] 0.0 10*3/uL Normal 0.0-0.2 [facility] Comment on above: Result Comment: PERF ORMED BY: [place] [address] PATHOLOGIST REGIONAL ACCOUNT EXECUTIVE ALLEN COATES M.D. Performed By: #### C BC, PT, PTT #### [place] [address] [place] Basophils/100 WBC (Bld) 0.5 % Normal . [facility] Comment on above: Performed By: #### C BC, PT, PTT #### [place] [id number] [facility] Eosinophils (Bld) [#/Vol] 0.2 10*3/uL Normal 0.0-0.45 [facility] Comment on above: Performed By: #### C BC, PT, PTT #### [facility] [address] [place] [address] [place] Eosinophils/100 WBC (Bld) 3.2 % Normal . [facility] Comment on above: Performed By: #### C BC, PT, PTT #### [facility] [address] Erythrocyte distribution width (RBC) [Ratio] 13.9 % Normal 11.9-15.3 [facility] Comment on above: Performed By: #### C BC, PT, PTT #### [facility] [address] Hematocrit (Bld) [Volume fraction] 40.9 % Normal 34.0-46.4 [facility] Comment on above: Performed By: #### C BC, PT, PTT #### [facility] [address] Hemoglobin (Bld) [Mass/Vol] 13.6 g/dL Normal 11.8-15.4 [facility] Comment on above: Performed By: #### C BC, PT, PTT #### [address] Lymphocytes (Bld) [#/Vol] 2.1 10*3/uL Normal 1.00-4.8 [facility] Comment on above: Performed By: #### C BC, PT, PTT #### [place] [address] [place] Lymphocytes/100 WBC (Bld) 29.1 % Normal . [facility] Comment on above: Performed By: #### C BC, PT, PTT #### [facility] [address] MCH (RBC) [Entitic mass] 27.6 pg Normal 24.7-34.3 [facility] Comment on above: Performed By: #### C BC, PT, PTT #### [address] MCV (RBC) [Entitic vol] 83.0 fL Normal 80-100 [facility] Comment on above: Performed By: #### C BC, PT, PTT #### [facility] [address] Mean Corpuscular HGB Conc 33.2 g/dL Normal 32.0-35.0 [facility] Comment on above: Performed By: #### C BC, PT, PTT #### [facility] [address] Monocytes (Bld) [#/Vol] 0.5 10*3/uL Normal 0.0-0.8 [facility] Comment on above: Performed By: #### C BC, PT, PTT #### [facility] [address] Monocytes/100 WBC (Bld) 6.3 % Normal . [facility] Comment on above: Performed By: #### C BC, PT, PTT #### [facility] [address] [place] [address] Neutrophils (Bld) [#/Vol] 4.4 10*3/uL Normal 1.8-7.7 [facility] Comment on above: Performed By: #### C BC, PT, PTT #### [address] Neutrophils/100 WBC (Bld) 60.9 % Normal . [facility] Comment on above: Performed By: #### C BC, PT, PTT #### [facility] [address] [place] [address] NRBC% 0.1 /100{WBC} Normal 0-0.5 [facility] Comment on above: Performed By: #### C BC, PT, PTT #### [facility] [address] Platelet mean volume (Bld) [Entitic vol] 8.1 fL Normal 6.3-10.7 [facility] Comment on above: Performed By: #### C BC, PT, PTT #### [facility] [address] Platelets (Bld) [#/Vol] 222 10*3/uL Normal 150-450 [facility] [place] Comment on above: Performed By: #### C BC, PT, PTT #### [facility] [address] RBC (Bld) [#/Vol] 4.93 10*6/uL Normal 3.60-5.00 [facility] Comment on above: Performed By: #### C BC, PT, PTT #### [facility] [address] WBC (Bld) [#/Vol] 7.3 10*3/uL Normal 3.8-11.6 [facility] Comment on above: Performed By: #### C BC, PT, PTT #### [facility] [address] Eosinophils Auto (Bld) [#/Vo l]Ordered By: Razia Muller on 12-20-2022 Eosinophils (Bld) [#/Vol] 0.2 10*3/uL 0.0-0.45 [facility] Eosinophils/100 WBC Auto (Bl d)Ordered By: Razia Muller on 12-20-2022 Eosinophils/100 WBC (Bld) 3.2 % . [facility] Erythrocyte distribution wid th Auto (RBC) [Ratio]Ordered By: Razia Muller on 12-20-2022 Erythrocyte distribution width (RBC) [Ratio] 13.9 % 11.9-15.3 [facility] Hematocrit Auto (Bld) [Volum e fraction]Ordered By: Razia Muller on 12-20-2022 Hematocrit (Bld) [Volume fraction] 40.9 % 34.0-46.4 [facility] Hemoglobin [Mass/volume] in BloodOrdered By: Razia Muller on 12-20-2022 Hemoglobin (Bld) [Mass/Vol] 13.6 g/dL 11.8-15.4 [facility] INR in Platelet poor plasma by Coagulation assayOrdered By: Razia Muller on 12-20-2022 INR Coag (PPP) [Relative time] 1.0 {INR} [facility] Comment on above: INR Therapeutic Rang e [...] PT Coag (PPP) [Time] 11.1 s 9.0-12.9 [facility] Leukocytes [#/volume] correc burke for nucleated erythrocytes in Blood by Automated counOrdered By: Razia Muller on 12-20-2022 WBC corrected for nucl RBC Auto (Bld) [#/Vol] 7.3 10*3/uL 3.8-11.6 [facility] Lymphocytes Auto (Bld) [#/Vo l]Ordered By: Razia Muller on 12-20-2022 Lymphocytes (Bld) [#/Vol] 2.1 10*3/uL 1.00-4.8 [facility] Lymphocytes/100 WBC Auto (Bl d)Ordered By: Razia Muller on 12-20-2022 Lymphocytes/100 WBC (Bld) 29.1 % . [facility] MCH Auto (RBC) [Entitic mass ]Ordered By: Razia Muller on 12-20-2022 MCH (RBC) [Entitic mass] 27.6 pg 24.7-34.3 [facility] MCHC Auto (RBC) [Mass/Vol]Or dered By: Razia Muller on 12-20-2022 MCHC (RBC) [Mass/Vol] 33.2 g/dL 32.0-35.0 [facility] MCV Auto (RBC) [Entitic vol] Ordered By: Razia Muller on 12-20-2022 MCV (RBC) [Entitic vol] 83.0 fL 80-100 [facility] Monocytes Auto (Bld) [#/Vol] Ordered By: Razia Muller on 12-20-2022 Monocytes (Bld) [#/Vol] 0.5 10*3/uL 0.0-0.8 [facility] Monocytes/100 WBC Auto (Bld) Ordered By: Razia uMller on 12-20-2022 Monocytes/100 WBC (Bld) 6.3 % . [facility] Neutrophils Auto (Bld) [#/Vo l]Ordered By: Razia Muller on 12-20-2022 Neutrophils (Bld) [#/Vol] 4.4 10*3/uL 1.8-7.7 [facility] Neutrophils/100 WBC Auto (Bl d)Ordered By: Razia Muller on 12-20-2022 Neutrophils/100 WBC (Bld) 60.9 % . [facility] Nucleated erythrocytes [Pres ence] in Blood by Automated countOrdered By: Razia Muller on 12-20-2022 Nucleated RBC Auto Ql (Bld) 0.1 /100{WBC} 0-0.5 [facility] Partial Thromboplastin Timeo n 12-20-2022 aPTT Coag (Bld) [Time] 32.8 s Normal 25.1-36.5 [facility] Comment on above: Result Comment: PERF ORMED BY: [place] [id number] PATHOLOGIST REGIONAL ACCOUNT EXECUTIVE ALLEN COATES M.D. Performed By: #### C BC, PT, PTT #### [address] Platelet mean volume Auto (B ld) [Entitic vol]Ordered By: Razia Muller on 12-20-2022 Platelet mean volume (Bld) [Entitic vol] 8.1 fL 6.3-10.7 [facility] Platelets Auto (Bld) [#/Vol] Ordered By: Razia Muller on 12-20-2022 Platelets (Bld) [#/Vol] 222 10*3/uL 150-450 [facility] Prothrombin Time INRon 12-20 INR Coag (PPP) [Relative time] 1.0 {INR} Normal [facility] Comment on above: Result Comment: INR Therapeutic [...] By: #### C BC, PT, PTT #### [facility] [address] [place] [id number] [facility] PT Coag (PPP) [Time] 11.1 s Normal 9.0-12.9 [facility] Comment on above: Performed By: #### C BC, PT, PTT #### [facility] [address] [place] [id number] [facility] RBC Auto (Bld) [#/Vol]Ordere d By: Razia Renzo on 12-20-2022 RBC (Bld) [#/Vol] 4.93 10*6/uL 3.60-5.00 [facility] WBC Auto (Bld) [#/Vol]Ordere d By: Razia Muller on 12-20-2022 WBC (Bld) [#/Vol] 7.3 10*3/uL 3.8-11.6 [facility] POC Glucose Fingerstickon Glucose [Mass/Vol] 85 mg/dL 65 - 105 mg/dL [facility] C.trachomatis N.gonorrhoeae DNA, Urineon 07-21-2022 Chlamydia sp DNA SARANYA+probe Ql (U) Negative NEGATIVE [facility] Comment on above: CHLAMYDIA TRACHOMATI S DNA [...] gonorrhoeae DNA SARANYA+probe Ql (U) Negative NEGATIVE [facility] Comment on above: NEISSERIA GONORRHOEA E DNA [...] alternative nucleic acid target. Specimen Description .URINE [facility] CBC auto differentialon 06-23 Absolute Eos # MERLY COELLO S [facility] Absolute Immature Granulocyte 0.12 [facility] Absolute Lymph # 1.21 MERLY SECO URS [facility] Absolute [place] # 0.69 [facility] RS [facility] Basophils (Bld) [#/Vol] 0.03 10*3/uL [facility] Basophils/100 WBC (Bld) 0 % 0 - 2 % [facility] Eosinophils/100 WBC (Bld) 0 % Low 1 - 4 % [facility] Hematocrit (Bld) [Volume fraction] 33.5 % Low 36.3 - 47.1 % [facility] Hemoglobin (Bld) [Mass/Vol] 10.8 g/dL Low 11.9 - 15.1 g/dL [facility] Immature granulocytes/100 WBC (Bld) 1 % High 0 [facility] Interpretation and review of laboratory results Abnormal [facility] Lymphocytes/100 WBC (Bld) 8 % Low 24 - 43 % [facility] MCH (RBC) [Entitic mass] 28.4 pg 25.2 - 33.5 pg [facility] MCHC (RBC) [Mass/Vol] 32.2 g/dL 28.4 - 34.8 g/dL [facility] MCV (RBC) [Entitic vol] 88.2 fL 82.6 - 102.9 fL [facility] Monocytes/100 WBC (Bld) 4 % 3 - 12 % [facility] NRBC Automated 0.0 0.0 per 100 WBC [facility] Platelet distribution width (Bld) [Ratio] 13.2 % 11.8 - 14.4 % [facility] Platelet mean volume (Bld) [Entitic vol] 10.5 fL 8.1 - 13.5 fL [facility] Platelets (Bld) [#/Vol] 197 10*3/uL [facility] RBC (Bld) [#/Vol] 3.80 10*6/uL Low 3.95 - 5.1 1 m/uL [facility] Segmented neutrophils/100 WBC (Bld) 87 % High 36 - 65 % [facility] Segs Absolute 13.58 High [facility] WBC (Bld) [#/Vol] 15.6 10*3/uL High [facility] Yung [facility] Culture, Urineon 07-21-2022 Microorganism identified Cx Nom (Unsp spec) NO SIGNIFICANT GROWTH [facility] Specimen Description .CLEAN CATCH URINE [facility] POC Glucose Fingerstickon Glucose [Mass/Vol] 108 mg/dL High 65 - 105 mg/dL [facility] Interpretation and review of laboratory results Abnormal [facility] Glucose [Mass/Vol] 95 mg/dL 65 - 105 mg/dL [facility] Glucose [Mass/Vol] 123 mg/dL High 65 - 105 mg/dL [facility] Interpretation and review of laboratory results Abnormal [facility] CBCon 07-20-2022 Hematocrit (Bld) [Volume fraction] 32.8 % Low 36.3 - 47.1 % [facility] Hemoglobin (Bld) [Mass/Vol] 11.0 g/dL Low 11.9 - 15.1 g/dL [facility] Interpretation and review of laboratory results Abnormal [facility] MCH (RBC) [Entitic mass] 28.6 pg 25.2 - 33.5 pg [facility] MCHC (RBC) [Mass/Vol] 33.5 g/dL 28.4 - 34.8 g/dL [facility] MCV (RBC) [Entitic vol] 85.4 fL 82.6 - 102.9 fL [facility] NRBC Automated 0.0 0.0 per 100 WBC [facility] Platelet distribution width (Bld) [Ratio] 13.2 % 11.8 - 14.4 % [facility] Platelet mean volume (Bld) [Entitic vol] 10.8 fL 8.1 - 13.5 fL [facility] Platelets (Bld) [#/Vol] 200 10*3/uL [facility] RBC (Bld) [#/Vol] 3.84 10*6/uL Low 3.95 - 5.1 1 m/uL [facility] WBC (Bld) [#/Vol] 10.2 10*3/uL [facility] Comprehensive Metabolic Pane mary 07-20-2022 Albumin [Mass/Vol] 3.3 g/dL Low 3.5 - 5.2 g/dL [facility] Albumin/Globulin [Mass ratio] 1.0 {ratio} 1.0 - 2.5 [facility] ALP [Catalytic activity/Vol] 142 U/L High 35 - 104 U/L [facility] ALT [Catalytic activity/Vol] 15 U/L 5 - 33 U/L [facility] Anion gap [Moles/Vol] 12 mmol/L 9 - 17 mmol/L [facility] AST [Catalytic activity/Vol] 15 U/L NINF - 32 U/L [facility] Bilirubin [Mass/Vol] mg/dL Low 0.3 - 1 .2 mg/dL [facility] Calcium [Mass/Vol] 9.0 mg/dL 8.6 - 10. 4 mg/dL [facility] Chloride [Moles/Vol] 104 mmol/L 98 - 10 7 mmol/L [facility] CO2 [Moles/Vol] 21 mmol/L 20 - 31 mmol/L [facility] Creatinine [Mass/Vol] 0.41 mg/dL Low 0.50 - 0.90 mg/dL [facility] GFR/1.73 sq M.predicted MDRD (S/P/Bld) [Vol rate/Area] - PINF [facility] Comment on above: These results are not [...] 135 mg/dL High 70 - 99 mg/dL [facility] Interpretation and review of laboratory results Abnormal [facility] Potassium [Moles/Vol] 3.8 mmol/L 3.7 - 5.3 mmol/L [facility] Protein [Mass/Vol] 6.5 g/dL 6.4 - 8.3 g/dL [facility] Sodium [Moles/Vol] 137 mmol/L 135 - 144 mmol/L [facility] Urea nitrogen [Mass/Vol] 8 mg/dL 6 - 20 mg/dL [facility] DRUG SCREEN MULTI URINEon Amphetamine Screen, Ur Negative NEGATIVE [facility] Comment on above: (Positive cutoff 1000 ng/mL) Barbiturate Screen, Ur Negative NEGATIVE [facility] Comment on above: (Positive cutoff 200 ng/mL) Benzodiazepine Screen, Urine Negative NEGATIVE [facility] Comment on above: (Positive cutoff 200 ng/mL) Cannabinoid Scrn, Ur Negative NEGATIVE [facility] Comment on above: (Positive cutoff 50 ng/mL) Cocaine Metabolite, Urine Negative NEGATIVE [facility] Comment on above: (Positive cutoff 300 ng/mL) Fentanyl, Ur Negative NEGATIVE [facility] Comment on above: (Positive cutoff 5 ng/ml) Methadone Screen, Urine Negative NEGATIVE [facility] Comment on above: (Positive cutoff 300 ng/mL) Opiates, Urine Negative NEGATIVE [facility] Comment on above: (Positive cutoff 300 ng/mL) Oxycodone Screen, Ur Negative NEGATIVE [facility] Comment on above: (Positive cutoff 100 ng/mL) Phencyclidine, Urine Negative NEGATIVE [facility] Comment on above: (Positive cutoff 25 ng/mL) Test Information Assay provides medic al screening only. The absence of expected drug(s) and/or metabolite(s) may indicate diluted or adulterated urine, limitations of testing or timing of collection. [facility] [employer] [facility] Comment on above: Testing for legal pu rposes should be confirmed by another method. To request confirmation of test result, please call the lab within 7 days of sample submission. [facility] GROUP B STREP CULTUREon 06-23 S. agalactiae Ag Ql (Unsp spec) Culture Observations: NEGATIVE FOR GROUP B STREPTOCOCCUS. Normal [facility] Comment on above: Performed By: #### [id number] #### [facility] [address] [place] [address] Dr. Valeria Farris POC Glucose Fingerstickon Glucose [Mass/Vol] 116 mg/dL High 65 - 105 mg/dL [facility] Interpretation and review of laboratory results Abnormal [facility] Protein / creatinine ratio, urineon 07-20-2022 Creatinine, Ur 95.9 mg/dL 28.0 - 217.0 mg/dL [facility] Protein (U) [Mass/Vol] 17 mg/dL [facility] Comment on above: No normal range esta blished. Urine Total Protein Creatinine Ratio 0.18 0.00 - 0.20 [facility] T. pallidum Abon 07-20-2022 T. pallidum Ab IA Ql (S) Non-Reactive NONREACTIVE [facility] Comment on above: T. pallidum antibodies are not detected. There is no serological evidence of infection with T. pallidum (early primary syphilis cannot be excluded). Retest in 2-4 weeks if syphilis is clinically suspect. [facility] TYPE AND SCREENon 07-20-2022 ABO/Rh Positive [facility] Arm Band Number BE [id number] [facility] Expiration Date 07/23/2022,2358 [facility] US CHINYERE DOP LEG LTon 07-20-19 [...] by: GERARD GONZALEZ Date: 2022-07-19 15:06 Normal [facility] COVID + FLU Quick Testingon 07-18-2022 SARS-CoV-2 (COVID-19) RNA SARANYA+probe Ql (Unsp spec) Negative [employer] Other COVID + FLU Quick Testing Negative [facility] Other Quick Strepon 07-18-2022 S. pyogenes Org specific cx Ql (Throat) Negative [employer] Other Quick Strep [employer] Other US PREG BIOPHY W NON STRESSo [...] by: GERARD GONZALEZ Date: 2022-07-17 15:56 Normal [facility] Brain Natriuretic Peptideon 07-15-2022 Natriuretic peptide B (Bld) [Mass/Vol] pg/mL [facility] - 300 pg/mL [facility] Comment on above: An age-independent cutoff point of 300 pg/ml has a 98% negative predictive value excluding acute heart failure. [facility] Comprehensive metabolic pane mary 07-15-2022 Albumin [Mass/Vol] 3.4 g/dL Low 3.5 - 5.2 g/dL [facility] Albumin/Globulin [Mass ratio] 1.0 {ratio} 1.0 - 2.5 [facility] ALP [Catalytic activity/Vol] 138 U/L High 35 - 104 U/L [facility] ALT [Catalytic activity/Vol] 16 U/L 5 - 33 U/L [facility] [employer] Anion gap [Moles/Vol] 12 mmol/L 9 - 17 mmol/L [facility] AST [Catalytic activity/Vol] 23 U/L NINF - 32 U/L [facility] [employer] Bilirubin [Mass/Vol] mg/dL Low 0.3 - 1 .2 mg/dL [facility] Calcium [Mass/Vol] 8.9 mg/dL 8.6 - 10. 4 mg/dL [facility] Chloride [Moles/Vol] 102 mmol/L 98 - 10 7 mmol/L [facility] CO2 [Moles/Vol] 19 mmol/L Low 20 - 31 mmol/L [facility] Creatinine [Mass/Vol] 0.38 mg/dL Low 0.50 - 0.90 mg/dL [facility] GFR/1.73 sq M.predicted MDRD (S/P/Bld) [Vol rate/Area] - PINF [facility] Comment on above: These results are not [...] 131 mg/dL High 70 - 99 mg/dL [facility] Interpretation and review of laboratory results Abnormal [facility] Potassium [Moles/Vol] 3.5 mmol/L Low 3.7 - 5.3 mmol/L [facility] Protein [Mass/Vol] 6.7 g/dL 6.4 - 8.3 g/dL [facility] Sodium [Moles/Vol] 133 mmol/L Low 135 - 144 mmol/L [facility] Urea nitrogen [Mass/Vol] 9 mg/dL 6 - 20 mg/dL [facility] HIV Screenon 07-15-2022 HIV 1+2 Ab+HIV1 p24 Ag IA Ql Non-Reactive NONREACTIVE [facility] Comment on above: No laboratory eviden ce of HIV infection. If acute HIV infection is suspected, consider testing for HIV-1 RNA. [facility] Protein / Creatinine Ratio, Urineon 07-15-2022 Creatinine, Ur 33.5 mg/dL 28.0 - 217.0 mg/dL [facility] Protein (U) [Mass/Vol] 5 mg/dL [facility] Comment on above: No normal range esta blished. Urine Total Protein Creatinine Ratio 0.15 0.00 - 0.20 [facility] TYPE AND SCREENon 07-15-2022 ABO/Rh Positive [facility] Arm Band Number BE [id number] [facility] Expiration Date 07/18/2022,2359 [facility] Troponinon 07-15-2022 Troponin I.cardiac DL <= 0.01 ng/mL [Mass/Vol] ng/L 0 - 14 ng/L [facility] Comment on above: High Sensitivity Tro ponin values cannot be compared with other Troponin methodologies. [facility] XR CHEST (SINGLE VIEW FRONTA L)on 07-15-2022 No acute process[facility] ONE XRAY VIEW OF THE CHEST 07/15/2022 4:26 pm COMPARISON: None. HISTORY: ORDERING SYSTEM PROVIDED HISTORY: shortness of breath TECHNOLOGIST PROVIDED HISTORY: Concerns for COVID shortness of breath FINDINGS: The lungs are without acute focal process. There is no effusion or pneumothorax. The cardiomediastinal silhouette is without acute process. The osseous structures are without acute process. [facility] Abner Dela Cruz MD - 07/15/2022 [...] without acute process. IMPRESSION: No acute process. [facility] [employer] Work Phone: Radiology Study observation (narrative) [facility] [employer] Phone: XR CHEST (SINGLE VIEW FRONTA L)Ordered By: Abner Dela Cruz on 07-15-2022 [facility] [employer] Work Phone: US PREG BIOPHY W NON [...] by: GERARD GONZALEZ Date: 2022-07-10 15:41 Normal [facility] US PREG BIOPHY W NON STRESSo n [...] GERARD GONZALEZ Date: 2022-07-04 16:21 Normal [facility] UA (CLEAN/CATCH) RIVETER AUTOMOBILE BRAKES/MICRO I F IND.on 06-30-2022 Bilirubin Ql (U) Negative Normal NEGATIVE [facility] Comment on above: Performed By: #### [id number] #### [facility] [address] [address] [address] Valeria Farris Clarity (U) CLEAR Normal CLEAR [facility] Comment on above: Performed By: #### [id number] #### [facility] [address] [address] [address] Valeria Farris Color (U) LT. YELLOW Normal YELLOW [facility] Comment on above: Performed By: #### [id number] #### [facility] [address] [address] [address] Valeria Farris Glucose Ql (U) Negative Normal NEGATIVE [facility] Comment on above: Performed By: #### [id number] #### [facility] [address] [place] [address] Dr. Valeria Farris Hemoglobin Ql (U) LARGE Abnormal NEGATIVE [facility] Comment on above: Performed By: #### [id number] #### [facility] [address] [place] [address] Dr. Valeria Farris Ketones Ql (U) Negative Normal NEGATIVE [facility] Comment on above: Performed By: #### [id number] #### [facility] [address] [place] [address] Dr. Valeria Farris LEUKOCYTES Negative Normal NEGATIVE [facility] Comment on above: Performed By: #### [id number] #### [facility] [address] [place] [address] Dr. Valeria Farris Nitrite Ql (U) Negative Normal NEGATIVE [facility] Comment on above: Performed By: #### [id number] #### [facility] [address] [place] [address] Dr. Valeria Farris pH (U) 6.5 [pH] Normal 5-9 [facility] Comment on above: Performed By: #### [id number] #### [facility] [address] [place] [address] Dr. Valeria Farris SPEC GRAVITY <=1.005 Abnormal 1.005-<=1.02 5 [facility] Comment on above: Performed By: #### [id number] #### [facility] [address] [place] [address] Dr. Valeria Farris UA PROTEIN Negative Normal NEGATIVE/ TRACE [facility] Comment on above: Performed By: #### [id number] #### [facility] [address] [place] [address] Dr. Valeria Farris UR MICRO IND INDICATED Normal [facility] Comment on above: Performed By: #### [id number] #### [facility] [address] [place] [address] Dr. Valeria Farris Urobilinogen Qn (U) 0.2 {Manolo'U}/dL Normal 0.2 - 1. 0 [facility] Comment on above: Performed By: #### [id number] #### [facility] [address] [place] [address] Dr. Valeria Farris URINE MICROSCOPIC ONLYon BACTERIA NONE SEEN Normal NONE SEEN [facility] Comment on above: Performed By: #### [id number] #### [facility] [address] [place] [address] Dr. Valeira Farris Bacteria identified Cx Nom (U) NOT INDICATED Normal [facility] Comment on above: Performed By: #### [id number] #### [facility] [address] [place] [address] Dr. Valeria Farris CAST NONE SEEN Normal NONE SEEN [facility] Comment on above: Performed By: #### [id number] #### [facility] [address] [place] [address] Dr. Valeria Farris Crystals LM Nom (Urine sed) NONE SEEN Normal NONE SEEN [facility] Comment on above: Performed By: #### [id number] #### [facility] [address] [place] [address] Dr. Valeria Farris Epithelial cells LM Ql (Urine sed) FEW Abnormal NONE SEEN /RARE [facility] Comment on above: Performed By: #### [id number] #### [facility] [address] [place] [address] Dr. Valeria Farris MUCOUS NONE SEEN Normal NONE SEEN [facility] Comment on above: Performed By: #### [id number] #### [facility] [address] [place] [address] Dr. Valeria Farris RBC 5-10 Abnormal 0-2 [facility] Comment on above: Performed By: #### [id number] #### [facility] [address] [place] [address] Dr. Valeria Farris WBC 0-2 Abnormal NONE SEEN [facility] Comment on above: Performed By: #### [id number] #### [facility] [address] [place] [address] Dr. Valeria Farris No Panel Informationon 06-29 [facility] T4, Freeon 06-29-2022 Free T4 [Mass/Vol] 0.82 ng/dL Low 0.93 - 1. 70 ng/dL [facility] Interpretation and review of laboratory results Abnormal [facility] TSHon 06-29-2022 TSH Qn 2.16 m[IU]/L [facility] US PREG BIOPHY W NON STRESSo n [...] by: ALINE GALICIA Date: 2022-06-26 07:50 Normal [facility] US PREG BIOPHY W NON STRESSo n [...] GERARD GONZALEZ Date: 2022-06-19 15:28 Normal [facility] CREATININE CLEARon 3 BODY SURF AREA 2.35 Normal [facility] Comment on above: Performed By: #### DAPHNE SUN #### [facility] [address] [address] [address] Valeria MAST CLEARANCE 128.94 ml/min Critically high 75.00-115.00 [facility] Comment on above: Performed By: #### DAPHNE SUN #### [facility] [address] [address] [address] Valeria Farris CREA, 24 HR UR 882.73 mg/24 hr Normal 800.00-1,8 00 .00 [facility] Comment on above: Performed By: #### U DAPHNE LANDEORS #### [facility] [address] [place] [address] Dr. Valeria Farris Creatinine [Mass/Vol] 0.35 mg/dL Critically low 0.55-1.02 [facility] Comment on above: Performed By: #### U DAPHNE LANDEROS #### [facility] [address] [place] [address] Dr. Valeria Farris URINE CREAT 21.53 mg/dL Normal 20.00-300.00 [facility] Comment on above: Performed By: #### U DAPHNE LANDEROS #### [facility] [address] [place] [address] Dr. Valeria Farris PROTEIN 24HR URINEon 023 T PROT, 24 HR UR 241.9 mg/24 hr Critically high <=149.1 [facility] Comment on above: Performed By: #### P [id number] #### [facility] [address] [place] [address] Dr. Valeria Farris UR PROT 5.9 mg/dL Normal <=11.9 [facility] Comment on above: Performed By: #### P ROT24U #### [facility] [address] [place] [address] Dr. Valeria Farris UR TOT VOL 4100 ml/24 HR Normal [facility] Comment on above: Performed By: #### P ROT24U #### [facility] [address] [place] [address] Dr. Valeria Farris Performed By: #### U DAPHNE LANDEROS #### [facility] [address] [place] [address] Dr. Valeria Farris CBC AUTO DIFFon 06-17-2022 BASO # 0.0 103/ul Normal 0.0-0.1 [facility] Comment on above: Performed By: #### G LU1HR #### [facility] [address] [address] [address] Valeria Farris Basophils/100 WBC (Bld) 0.4 % Normal 0.2-2.0 [facility] Comment on above: Performed By: #### G LU1HR #### [facility] [address] [place] [address] Dr. Valeria Farris EO # 0.2 103/ul Normal 0.0-0.7 [facility] Comment on above: Performed By: #### G LU1HR #### [facility] [address] [place] [address] Dr. Valeria Farris Eosinophils/100 WBC (Bld) 2.0 % Normal 0.9-7.0 [facility] Comment on above: Performed By: #### G LU1HR #### [facility] [address] [place] [address] Dr. Valeria Farris Erythrocyte distribution width (RBC) [Ratio] 13.3 % Normal 11.0-15.0 [facility] Comment on above: Performed By: #### G LU1HR #### [facility] [address] [place] [address] Dr. Valeria Farris Hematocrit (Bld) [Volume fraction] 31.8 % Critically low 36.0-48.0 [facility] Comment on above: Performed By: #### G LU1HR #### [facility] [address] [place] [address] Dr. Valeria Farris Hemoglobin (Bld) [Mass/Vol] 10.8 g/dL Critically low 12.0-16.0 [facility] Comment on above: Performed By: #### G LU1HR #### [facility] [address] [place] [address] Dr. Valeria Farris IG # 0.09 10e3/ul Critically high 0.00-0.[address] [facility] Comment on above: Performed By: #### G LU1HR #### [facility] [address] [place] [address] Dr. Valeria Farris IG % 0.8 % Critically high 0.0-0.5 [facility] Comment on above: Performed By: #### G LU1HR #### [facility] [address] [address] [address] Valeria Farris LYMPH # 2.2 103/ul Normal 1.2-3.8 [facility] Comment on above: Performed By: #### G LU1HR #### [facility] [address] [address] [address] Valeria Farris Lymphocytes/100 WBC (Bld) 20.0 % Critically low 20.5-60.0 [facility] Comment on above: Performed By: #### G LU1HR #### [facility] [address] [address] [address] Valeria Farris MANUAL DIFF REQ NO Normal [facility] Comment on above: Performed By: #### G LU1HR #### [facility] [address] [place] [address] Dr. Valeria Farris MCH (RBC) [Entitic mass] 28.4 pg Normal 26.7-34.0 [facility] Comment on above: Performed By: #### G LU1HR #### [facility] [address] [place] [address] Dr. Valeria Farris MCHC (RBC) [Mass/Vol] 34.0 g/dL Normal 29.9-35.2 [facility] Comment on above: Performed By: #### G LU1HR #### [facility] [address] [place] [address] Dr. Valeria Farris MCV (RBC) [Entitic vol] 83.7 fL Normal 81.0-99.0 [facility] Comment on above: Performed By: #### G LU1HR #### [facility] [address] [address] [address] Valeria Farris MONO # 0.9 103/ul Critically high 0.3-0.8 [facility] Comment on above: Performed By: #### G LU1HR #### [facility] [address] [place] [address] Dr. Valeria Farris Monocytes/100 WBC (Bld) 7.9 % Normal 1.7-12.0 [facility] Comment on above: Performed By: #### G LU1HR #### [facility] [address] [address] [address] Valeria Farris NEUT # 7.7 103/ul Critically high 1.4-6.5 [facility] Comment on above: Performed By: #### G LU1HR #### [facility] [address] [place] [address] Dr. Valeria Farris Neutrophils/100 WBC (Bld) 68.9 % Normal 43.0-75.0 [facility] Comment on above: Performed By: #### G LU1HR #### [facility] [address] [place] [address] Dr. Valeria Farris Platelet mean volume (Bld) [Entitic vol] 10.7 fL Normal 9.5-13.5 [facility] Comment on above: Performed By: #### G LU1HR #### [facility] [address] [place] [address] Dr. Valeria Farris PLT 195 103/ul Normal 150-450 [facility] Comment on above: Performed By: #### G LU1HR #### [facility] [address] [place] [address] Dr. Valeria Farris RBC 3.80 106/ul Critically low 4.20-5.40 [facility] Comment on above: Performed By: #### G LU1HR #### [facility] [address] [place] [address] Dr. Valeria Farris WBC 11.2 103/ul Critically high 4.0-11.0 [facility] Comment on above: Performed By: #### G LU1HR #### [facility] [address] [place] [address] Dr. Valeria Farris LDHon 06-17-2022 LDH 230 U/L Normal 81-234 [facility] Comment on above: Performed By: #### P ROT24U #### [facility] [address] [place] [address] Dr. Valeria Farris PROF 14(COMP METB)on 023 Albumin [Mass/Vol] 2.6 g/dL Critically low 3.4-5.0 [facility] Comment on above: Performed By: #### P ROT24U #### [facility] [address] [place] [address] Dr. Valeria Farris Albumin/Globulin [Mass ratio] 0.6 {ratio} Normal [facility] Comment on above: Performed By: #### P ROT24U #### [facility] [address] [address] [address] Valeria Farris ALP [Catalytic activity/Vol] 112 U/L Normal 46-116 [facility] Comment on above: Performed By: #### P ROT24U #### [facility] [address] [place] [address] Dr. Valeria Farris ALT [Catalytic activity/Vol] 18 U/L Normal 14-59 [facility] Comment on above: Performed By: #### P ROT24U #### [facility] [address] [place] [address] Dr. Valeria Farris Anion gap [Moles/Vol] 13.1 mmol/L Normal [facility] Comment on above: Performed By: #### P ROT24U #### [facility] [address] [place] [address] Dr. Valeria Farris AST [Catalytic activity/Vol] 22 U/L Normal 15-37 [facility] Comment on above: Performed By: #### P ROT24U #### [facility] [address] [place] [address] Dr. Valeria Farris Bilirubin [Mass/Vol] 0.2 mg/dL Normal 0.2-1.0 [facility] Comment on above: Performed By: #### P ROT24U #### [facility] [address] [place] [address] Dr. Valeria Farris Calcium [Mass/Vol] 9.1 mg/dL Normal 8.5-10.1 [facility] Comment on above: Performed By: #### P ROT24U #### [facility] [address] [place] [address] Dr. Valeria Farris Chloride [Moles/Vol] 103 mmol/L Normal 98-107 [facility] Comment on above: Performed By: #### P ROT24U #### [facility] [address] [address] [address] Valeria Farris CO2 [Moles/Vol] 25.8 mmol/L Normal 21.0-32.0 [facility] Comment on above: Performed By: #### P ROT24U #### [facility] [address] [address] [address] Valeria Farris Creatinine [Mass/Vol] 0.35 mg/dL Critically low 0.55-1.02 [facility] Comment on above: Performed By: #### P ROT24U #### [facility] [address] [place] [address] Dr. Valeria Farris EGFR-AF POLISH >60 Normal >=60 [facility] Comment on above: Performed By: #### P ROT24U #### [facility] [address] [place] [address] Dr. Valeria Farris EGFR-NON AF POLISH >60 Normal >=60 [facility] Comment on above: Performed By: #### P ROT24U #### [facility] [address] [address] [address] Valeria Farris Globulin (S) [Mass/Vol] 4.2 g/dL Normal [facility] Comment on above: Performed By: #### P ROT24U #### [facility] [address] [address] [address] Valeria Farris Glucose [Mass/Vol] 80 mg/dL Normal 74-106 [facility] Comment on above: Performed By: #### P ROT24U #### [facility] [address] [address] [address] Valeria Farris Potassium [Moles/Vol] 3.9 mmol/L Normal 3.5-5.1 [facility] Comment on above: Performed By: #### P ROT24U #### [facility] [address] [address] [address] Valeria Farris Protein [Mass/Vol] 6.8 g/dL Normal 6.4-8.2 [facility] Comment on above: Performed By: #### P ROT24U #### [facility] [address] [place] [address] Dr. Valeria Farris Sodium [Moles/Vol] 138 mmol/L Normal 136-145 [facility] Comment on above: Performed By: #### P ROT24U #### [facility] [address] [place] [address] Dr. Valeria Farris Urea nitrogen [Mass/Vol] 10.0 mg/dL Normal 7.0-18.0 [facility] Comment on above: Performed By: #### P ROT24U #### [facility] [address] [place] [address] Dr. Valeria Farris Urea nitrogen/Creatinine [Mass ratio] 28.6 mg/mg Normal [facility] Comment on above: Performed By: #### P ROT24U #### [facility] [address] [place] [address] Dr. Valeria Farris PTTon 06-17-2022 aPTT Coag (Bld) [Time] 26.4 s Normal 22.3-36.2 [facility] Comment on above: Performed By: #### P REGQNT #### [facility] [address] [place] [address] Dr. Valeria Farris UA (CLEAN/CATCH) RIVETER AUTOMOBILE BRAKES/MICRO I F IND.on 06-17-2022 Bilirubin Ql (U) Negative Normal NEGATIVE [facility] Comment on above: Performed By: #### P REGQNT #### [facility] [address] [place] [address] Dr. Valeria Farris Clarity (U) CLEAR Normal CLEAR [facility] Comment on above: Performed By: #### P REGQNT #### [facility] [address] [place] [address] Dr. Valeria Farris Color (U) LT. YELLOW Normal YELLOW [facility] Comment on above: Performed By: #### P REGQNT #### [facility] [address] [place] [address] Dr. Valeria Farris Glucose Ql (U) Negative Normal NEGATIVE [facility] Comment on above: Performed By: #### P REGQNT #### [facility] [address] [address] [address] Valeria Farris Hemoglobin Ql (U) Negative Normal NEGATIVE [facility] Comment on above: Performed By: #### P REGQNT #### [facility] [address] [place] [address] Dr. Valeria Farris Ketones Ql (U) Negative Normal NEGATIVE [facility] Comment on above: Performed By: #### P REGQNT #### [facility] [address] [address] [address] Valeria Farris LEUKOCYTES Negative Normal NEGATIVE [facility] Comment on above: Performed By: #### P REGQNT #### [facility] [address] [place] [address] Dr. Valeria Farris Nitrite Ql (U) Negative Normal NEGATIVE [facility] Comment on above: Performed By: #### P REGQNT #### [facility] [address] [place] [address] Dr. Valeria Farris pH (U) 6.5 [pH] Normal 5-9 [facility] Comment on above: Performed By: #### P REGQNT #### [facility] [address] [place] [address] Dr. Valeria Farris SPEC GRAVITY 1.010 Normal 1.005-<=1.02 5 [facility] Comment on above: Performed By: #### P REGQNT #### [facility] [address] [place] [address] Dr. Valeria Farris UA PROTEIN Negative Normal NEGATIVE/ TRACE [facility] Comment on above: Performed By: #### P REGQNT #### [facility] [address] [place] [address] Dr. Valeria Farris UR MICRO IND NOT INDICATED Normal [facility] Comment on above: Performed By: #### P REGQNT #### [facility] [address] [place] [address] Dr. Valeria Farris Urobilinogen Qn (U) 0.2 {Manolo'U}/dL Normal 0.2 - 1. 0 [facility] Comment on above: Performed By: #### P REGQNT #### [facility] [address] [address] [address] Valeria Farris URIC ACID SERUMon 06-17-2022 Urate [Mass/Vol] 3.3 mg/dL Normal 2.6-6.0 [facility] Comment on above: Performed By: #### P ROT24U #### [facility] [address] [address] [address] Valeria Farris PAP ACOG PANEL 2: 30 to 65on 05-29-2022 . . Normal [facility] Comment on above: Result Comment: Perf ormed at: WB Performed By: #### [id number] #### [facility] [address] [place] [address] Dr. Valeria Farris Age Gdln ACOG Testing 30-65 Normal [facility] Comment on above: Performed By: #### [id number] #### [facility] [address] [place] [address] Dr. Valeria Farris DIAGNOSIS: Comment Normal [facility] Comment on above: Result Comment: NEGA TIVE FOR INTRAEPITHELIAL LESION OR MALIGNANCY. Performed at: WB Performed By: #### [id number] #### [facility] [address] [place] [address] Dr. Valeria Farris HPV Aptima Negative Normal Negative [facility] Comment on above: Result Comment: This nucleic acid amplification test detects fourteen high-risk HPV types (16,18,31,33,35,39,45,51,52,56,58,59,66,68) without differentiation. Performed at: =G Performed By: #### [id number] #### [facility] [address] [place] [address] Dr. Valeria Farris HPV Genotype Reflex Comment Normal [facility] Comment on above: Result Comment: Crit eria not met, HPV Genotype not performed. Performed at: WB Performed By: #### [id number] #### [facility] [address] [place] [address] Dr. Valeria Farris Methodology: Comment Normal [facility] Comment on above: Result Comment: This liquid based ThinPrep(R) pap test was screened with the use of an image guided system. Performed at: WB Performed By: #### [id number] #### [facility] [address] [place] [address] Dr. Valeria Farris Note: Comment Normal [facility] Comment on above: Result Comment: The Pap smear is a screening test designed to aid in the detection of premalignant and malignant conditions of the uterine cervix. It is not a diagnostic procedure and should not be used as the sole means of detecting cervical cancer. Both false-positive and false-negative reports do occur. . Performed at: WB Performed By: #### [id number] #### [facility] [address] [place] [address] Dr. Valeria Farris Performed by: Comment Normal [facility] Comment on above: Result Comment: Jaye Simmons, Pharmacy Cashier (ASCP) Performed at: WB Performed By: #### [id number] #### [facility] [address] [place] [address] Dr. Valeria Farris Specimen adequacy: Comment Normal [facility] Comment on above: Result Comment: Sati sfactory for evaluation. Performed at: WB Performed By: #### [id number] #### [facility] [address] [place] [address] Dr. Valeria Farris POINT OF CARE GLUCOSEon Glucose [Mass/Vol] 122 mg/dL Critically high 74-106 [facility] Comment on above: Performed By: #### U ACSIND UMICRO #### [facility] [address] [place] [address] Dr. Valeria Farris UA (CLEAN/CATCH) RIVETER AUTOMOBILE BRAKES/MICRO I F IND.on 05-29-2022 Bilirubin Ql (U) Negative Normal NEGATIVE [facility] Comment on above: Performed By: #### U ACSIND, UMICRO #### [facility] [address] [place] [address] Dr. Valeria Farris Clarity (U) CLEAR Normal CLEAR [facility] Comment on above: Performed By: #### U ACSIND, UMICRO #### [facility] [address] [address] [address] Valeria Farris Color (U) LT. YELLOW Normal YELLOW [facility] Comment on above: Performed By: #### U ACSIND, UMICRO #### [facility] [address] [address] [address] Valeria Farris Glucose Ql (U) Negative Normal NEGATIVE [facility] Comment on above: Performed By: #### U ACSIND, UMICRO #### [facility] [address] [address] [address] Valeria Farris Hemoglobin Ql (U) TRACE-INTACT Abnormal NEGATIVE [facility] Comment on above: Performed By: #### U ACSIND, UMICRO #### [facility] [address] [place] [address] Dr. Valeria Farris Ketones Ql (U) Negative Normal NEGATIVE [facility] Comment on above: Performed By: #### U ACSTRUPTI, UMICRO #### [facility] [address] [place] [address] Dr. Valeria Farris LEUKOCYTES Negative Normal NEGATIVE [facility] Comment on above: Performed By: #### U ACSTRUPTI, UMICRO #### [facility] [address] [place] [address] Dr. Valeria Farris Nitrite Ql (U) Negative Normal NEGATIVE [facility] Comment on above: Performed By: #### U ACSTRUPTI UMICRO #### [facility] [address] [place] [address] Dr. Valeria Farris pH (U) 5.5 [pH] Normal 5-9 [facility] Comment on above: Performed By: #### U ACSTRUPTI, UMICRO #### [facility] [address] [place] [address] Dr. Valeria Farris SPEC GRAVITY 1.010 Normal 1.005-<=1.02 5 [facility] Comment on above: Performed By: #### U ACSTRUPTI, UMICRO #### [facility] [address] [place] [address] Dr. Valeria Farris UA PROTEIN Negative Normal NEGATIVE/ TRACE [facility] Comment on above: Performed By: #### U ACSIND, UMICRO #### [facility] [address] [place] [address] Dr. Valeria Farris UR MICRO IND INDICATED Normal [facility] Comment on above: Performed By: #### U ACSIND, UMICRO #### [facility] [address] [place] [address] Dr. Valeria Farris Urobilinogen Qn (U) 0.2 {Manolo'U}/dL Normal 0.2 - 1. 0 [facility] Comment on above: Performed By: #### U ACSIND, UMICRO #### [facility] [address] [place] [address] Dr. Valeria Farris URINE MICROSCOPIC ONLYon BACTERIA NONE SEEN Normal NONE SEEN [facility] Comment on above: Performed By: #### U ACSIND, UMICRO #### [facility] [address] [place] [address] Dr. Valeria Farris Bacteria identified Cx Nom (U) NOT INDICATED Normal [facility] Comment on above: Performed By: #### U ACSIND, UMICRO #### [facility] [address] [place] [address] Dr. Valeria Farris CAST NONE SEEN Normal NONE SEEN [facility] Comment on above: Performed By: #### U ACSIND, UMICRO #### [facility] [address] [place] [address] Dr. Valeria Farris Crystals LM Nom (Urine sed) NONE SEEN Normal NONE SEEN [facility] Comment on above: Performed By: #### U ACSIND, UMICRO #### [facility] [address] [place] [address] Dr. Valeria Farris Epithelial cells LM Ql (Urine sed) FEW Abnormal NONE SEEN /RARE [facility] Comment on above: Performed By: #### U ACSIND, UMICRO #### [facility] [address] [place] [address] Dr. Valeria Farris MUCOUS NONE SEEN Normal NONE SEEN [facility] Comment on above: Performed By: #### U ACSTRUPTI, UMICRO #### [facility] [address] [place] [address] Dr. Valeria Farris RBC 0-2 Normal 0-2 [facility] Comment on above: Performed By: #### U ACSTRUPTI, UMICRO #### [facility] [address] [place] [address] Dr. Valeria Farris WBC NONE SEEN Normal NONE SEEN [facility] Comment on above: Performed By: #### U ACSTRUPTI, ICRO #### [facility] [address] [place] [address] Dr. Valeria Farris CHLAMYDIA/GONOCOCCUS SARANYA ( AB/URINE/PAPon 05-26-2022 Chlamydia trachomatis, SARANYA Negative Normal Negative [facility] Comment on above: Performed By: #### [id number] #### [facility] [address] [place] [address] Dr. Valeria Farris Neisseria gonorrhoeae, SARANYA Negative Normal Negative [facility] Comment on above: Performed By: #### [id number] #### [facility] [address] [place] [address] Dr. Valeria Farris AMYLASEon 05-25-2022 Amylase [Catalytic activity/Vol] 30 U/L Normal 25-115 [facility] Comment on above: Performed By: #### P ROT24U #### [facility] [address] [place] [address] Dr. Valeria Farris CARDIAC VERNON 3-6on 3 CK [Catalytic activity/Vol] 119 U/L Normal 26-192 [facility] Comment on above: Performed By: #### P ROT24U #### [facility] [address] [place] [address] Dr. Valeria Farris CK.MB [Mass/Vol] ng/mL Normal <=3.[address] [facility] Comment on above: Performed By: #### P ROT24U #### [facility] [address] [place] [address] Dr. Valeria Farris HSTROP <4.0 Normal 4.0-51.3 [facility] Comment on above: Result Comment: CUT- OFF POINTS HAVE BEEN ESTABLISHED BASED ON THE FOURTH UNIVERSAL DEFINITIONS OF MYOCARDIAL INFARCTION. THE UPPER REFERENCE LIMIT (URL) OF TROPONIN, DEFINED THE 99TH PERCENTILE OF cTnI DISTRIBUTION IN A REFERENCE POPULATION, HAS BEEN CONFIRMED THE DECISION THRESHOLD FOR [place] DIAGNOSIS. Performed By: #### P ROT24U #### [facility] [address] [place] [address] Dr. Valeria Farris CARDIAC VERNON ADMITon 023 CK [Catalytic activity/Vol] 121 U/L Normal 26-192 [facility] Comment on above: Performed By: #### P ROT24U #### [facility] [address] [place] [address] Dr. Valeria Farris CK.MB [Mass/Vol] 0.51 ng/mL Normal <=3.[address] [facility] Comment on above: Performed By: #### P ROT24U #### [facility] [address] [place] [address] Dr. Valeria Farris HSTROP 4.1 pg/mL Normal 4.0-51.3 [facility] Comment on above: Result Comment: CUT- OFF POINTS HAVE BEEN ESTABLISHED BASED ON THE FOURTH UNIVERSAL DEFINITIONS OF MYOCARDIAL INFARCTION. THE UPPER REFERENCE LIMIT (URL) OF TROPONIN, DEFINED THE 99TH PERCENTILE OF cTnI DISTRIBUTION IN A REFERENCE POPULATION, HAS BEEN CONFIRMED THE DECISION THRESHOLD FOR [place] DIAGNOSIS. Performed By: #### P [id number] #### [facility] [address] [place] [address] Dr. Valeria Farris MINI 19 ng/mL Normal 9-82 [facility] Comment on above: Performed By: #### P ROT24U #### [facility] [address] [place] [address] Dr. Valeria Farris CBC AUTO DIFFon 05-25-2022 BASO # 0.0 103/ul Normal 0.0-0.1 [facility] Comment on above: Performed By: #### [id number] #### [facility] [address] [place] [address] Dr. Valeria Farris Basophils/100 WBC (Bld) 0.2 % Normal 0.2-2.0 [facility] Comment on above: Performed By: #### 4 [id number] #### [facility] [address] [place] [address] Dr. Valeria Farris EO # 0.1 103/ul Normal 0.0-0.7 [facility] Comment on above: Performed By: #### 4 [id number] #### [facility] [address] [place] [address] Dr. Valeria Farris Eosinophils/100 WBC (Bld) 0.8 % Critically low 0.9-7.0 [facility] Comment on above: Performed By: #### [id number] #### [facility] [address] [place] [address] Dr. Valeria Farris Erythrocyte distribution width (RBC) [Ratio] 13.5 % Normal 11.0-15.0 [facility] Comment on above: Performed By: #### 4 [id number] #### [facility] [address] [place] [address] Dr. Valeria Farris Hematocrit (Bld) [Volume fraction] 30.4 % Critically low 36.0-48.0 [facility] Comment on above: Performed By: #### 4 [id number] #### [facility] [address] [place] [address] Dr. Valeria Farris Hemoglobin (Bld) [Mass/Vol] 9.8 g/dL Critically low 12.0-16.0 [facility] Comment on above: Performed By: #### 4 [id number] #### [facility] [address] [place] [address] Dr. Valeria Farris IG # 0.21 10e3/ul Critically high 0.00-0.[address] [facility] Comment on above: Performed By: #### 4 [id number] #### [facility] [address] [place] [address] Dr. Valeria Farris IG % 1.6 % Critically high 0.0-0.5 [facility] Comment on above: Performed By: #### [id number] #### [facility] [address] [place] [address] Dr. Valeria Farris LYMPH # 2.8 103/ul Normal 1.2-3.8 [facility] Comment on above: Performed By: #### 4 [id number] #### [facility] [address] [place] [address] Dr. Valeria Farris Lymphocytes/100 WBC (Bld) 21.3 % Normal 20.5-60.0 [facility] Comment on above: Performed By: #### 4 [id number] #### [facility] [address] [place] [address] Dr. Valeria Farris MANUAL DIFF REQ NO Normal [facility] Comment on above: Performed By: #### 4 [id number] #### [facility] [address] [place] [address] Dr. Valeria Farris MCH (RBC) [Entitic mass] 28.2 pg Normal 26.7-34.0 [facility] Comment on above: Performed By: #### 4 [id number] #### [facility] [address] [place] [address] Dr. Valeria Farris MCHC (RBC) [Mass/Vol] 32.2 g/dL Normal 29.9-35.2 [facility] Comment on above: Performed By: #### 4 [id number] #### [facility] [address] [place] [address] Dr. Valeria Farris MCV (RBC) [Entitic vol] 87.6 fL Normal 81.0-99.0 [facility] Comment on above: Performed By: #### 4 [id number] #### [facility] [address] [place] [address] Dr. Valeria Farris MONO # 0.9 103/ul Critically high 0.3-0.8 [facility] Comment on above: Performed By: #### 4 [id number] #### [facility] [address] [place] [address] Dr. Valeria Farris Monocytes/100 WBC (Bld) 6.8 % Normal 1.7-12.0 [facility] Comment on above: Performed By: #### 4 [id number] #### [facility] [address] [place] [address] Dr. Valeria Farris NEUT # 9.0 103/ul Critically high 1.4-6.5 [facility] Comment on above: Performed By: #### 4 [id number] #### [facility] [address] [place] [address] Dr. Valeria Farris Neutrophils/100 WBC (Bld) 69.3 % Normal 43.0-75.0 [facility] Comment on above: Performed By: #### 4 [id number] #### [facility] [address] [place] [address] Dr. Valeria Farris Platelet mean volume (Bld) [Entitic vol] 10.5 fL Normal 9.5-13.5 [facility] Comment on above: Performed By: #### 4 [id number] #### [facility] [address] [place] [address] Dr. Valeria Fraris PLT 187 103/ul Normal 150-450 [facility] Comment on above: Performed By: #### 4 [id number] #### [facility] [address] [place] [address] Dr. Valeria Farris RBC 3.47 106/ul Critically low 4.20-5.40 [facility] Comment on above: Performed By: #### 4 [id number] #### [facility] [address] [place] [address] Dr. Valeria Farris WBC 13.0 103/ul Critically high 4.0-11.0 [facility] Comment on above: Performed By: #### 4 [id number] #### [facility] [address] [place] [address] Dr. Valeria Farris CTA CHEST WO W [...] by: Daryl LOPEZ Date: 2022-05-25 01:55 Normal [facility] CULTURE URINEon 05-25-2022 CULTURE URINE Culture Observations : HEAVY GROWTH OF MIXED GENITAL RIO. NO POTENTIAL PATHOGENS SEEN. Normal [facility] Comment on above: Performed By: #### 4 [id number] #### [facility] [address] [place] [address] Dr. Valeria Farris LIPASEon 05-25-2022 Lipase [Catalytic activity/Vol] 54.0 U/L Critically low 73.0-393.0 [facility] Comment on above: Performed By: #### P ROT24U #### [facility] [address] [place] [address] Dr. Valeria Farris PROF 14(COMP METB)on 023 Albumin [Mass/Vol] 2.5 g/dL Critically low 3.4-5.0 [facility] Comment on above: Performed By: #### P ROT24U #### [facility] [address] [place] [address] Dr. Valeria Farris Albumin/Globulin [Mass ratio] 0.6 {ratio} Normal [facility] Comment on above: Performed By: #### P ROT24U #### [facility] [address] [place] [address] Dr. Valeria Farris ALP [Catalytic activity/Vol] 97 U/L Normal 46-116 [facility] Comment on above: Performed By: #### P ROT24U #### [facility] [address] [address] [address] Valeria Farris ALT [Catalytic activity/Vol] 25 U/L Normal 14-59 [facility] Comment on above: Performed By: #### P ROT24U #### [facility] [address] [address] [address] Valeria Farris Anion gap [Moles/Vol] 14.2 mmol/L Normal [facility] Comment on above: Performed By: #### P ROT24U #### [facility] [address] [address] [address] Valeria Farris AST [Catalytic activity/Vol] 12 U/L Critically low 15-37 [facility] Comment on above: Performed By: #### P ROT24U #### [facility] [address] [address] [address] Valeria Farris Bilirubin [Mass/Vol] 0.2 mg/dL Normal 0.2-1.0 [facility] Comment on above: Performed By: #### P ROT24U #### [facility] [address] [address] [address] Valeria Farris Calcium [Mass/Vol] 8.5 mg/dL Normal 8.5-10.1 [facility] Comment on above: Performed By: #### P ROT24U #### [facility] [address] [address] [address] Valeria Farris Chloride [Moles/Vol] 103 mmol/L Normal 98-107 [facility] Comment on above: Performed By: #### P ROT24U #### [facility] [address] [address] [address] Valeira Farris CO2 [Moles/Vol] 23.0 mmol/L Normal 21.0-32.0 [facility] Comment on above: Performed By: #### P ROT24U #### [facility] [address] [address] [address] Valeria Farris Creatinine [Mass/Vol] 0.39 mg/dL Critically low 0.55-1.02 [facility] Comment on above: Performed By: #### P ROT24U #### [facility] [address] [address] [address] Valeria Farris EGFR-AF POLISH >60 Normal >=60 [facility] Comment on above: Performed By: #### P ROT24U #### [facility] [address] [address] [address] Valeria Farris EGFR-NON AF POLISH >60 Normal >=60 [facility] Comment on above: Performed By: #### P ROT24U #### [facility] [address] [address] [address] Valeria Farris Globulin (S) [Mass/Vol] 4.0 g/dL Normal [facility] Comment on above: Performed By: #### P ROT24U #### [facility] [address] [address] [address] Valeria Farris Glucose [Mass/Vol] 113 mg/dL Critically high 74-106 [facility] Comment on above: Performed By: #### P ROT24U #### [facility] [address] [address] [address] Valeria Farris Potassium [Moles/Vol] 3.2 mmol/L Critically low 3.5-5.1 [facility] Comment on above: Performed By: #### P ROT24U #### [facility] [address] [place] [address] Dr. Valeria Farris Protein [Mass/Vol] 6.5 g/dL Normal 6.4-8.2 [facility] Comment on above: Performed By: #### P ROT24U #### [facility] [address] [address] [address] Valeria Farris Sodium [Moles/Vol] 137 mmol/L Normal 136-145 [facility] Comment on above: Performed By: #### P ROT24U #### [facility] [address] [address] [address] Valeria Farris Urea nitrogen [Mass/Vol] 8.0 mg/dL Normal 7.0-18.0 [facility] Comment on above: Performed By: #### P ROT24U #### [facility] [address] [place] [address] Dr. Valeria Farris Urea nitrogen/Creatinine [Mass ratio] 20.5 mg/mg Normal [facility] Comment on above: Performed By: #### P ROT24U #### [facility] [address] [place] [address] Dr. Valeria Farris UA (CLEAN/CATCH) RIVETER AUTOMOBILE BRAKES/MICRO I F IND.on 05-25-2022 Bilirubin Ql (U) Negative Normal NEGATIVE [facility] Comment on above: Performed By: #### G LU1HR #### [facility] [address] [place] [address] Dr. Valeria Farris Clarity (U) CLEAR Normal CLEAR [facility] Comment on above: Performed By: #### G LU1HR #### [facility] [address] [place] [address] Dr. Valeria Farris Color (U) YELLOW Normal YELLOW [facility] Comment on above: Performed By: #### G LU1HR #### [facility] [address] [place] [address] Dr. Valeria Farris Glucose Ql (U) Negative Normal NEGATIVE [facility] Comment on above: Performed By: #### G LU1HR #### [facility] [address] [place] [address] Dr. Valeria Farris Hemoglobin Ql (U) TRACE-INTACT Abnormal NEGATIVE [facility] Comment on above: Performed By: #### G LU1HR #### [facility] [address] [place] [address] Dr. Valeria Farris Ketones Ql (U) TRACE Abnormal NEGATIVE [facility] Comment on above: Performed By: #### G LU1HR #### [facility] [address] [place] [address] Dr. Valeria Farris LEUKOCYTES Negative Normal NEGATIVE [facility] Comment on above: Performed By: #### G LU1HR #### [facility] [address] [place] [address] Dr. Valeria Farris Nitrite Ql (U) Negative Normal NEGATIVE [facility] Comment on above: Performed By: #### G LU1HR #### [facility] [address] [place] [address] Dr. Valeria Farris pH (U) 6.0 [pH] Normal 5-9 [facility] Comment on above: Performed By: #### G LU1HR #### [facility] [address] [place] [address] Dr. Valeria Farris SPEC GRAVITY >=1.030 Abnormal 1.005-<=1.02 5 [facility] Comment on above: Performed By: #### G LU1HR #### [facility] [address] [place] [address] Dr. Valeria Farris UA PROTEIN Negative Normal NEGATIVE/ TRACE [facility] Comment on above: Performed By: #### G LU1HR #### [facility] [address] [place] [address] Dr. Valeria Farris UR MICRO IND INDICATED Normal [facility] Comment on above: Performed By: #### G LU1HR #### [facility] [address] [place] [address] Dr. Valeria Farris Urobilinogen Qn (U) 0.2 {Manolo'U}/dL Normal 0.2 - 1. 0 [facility] Comment on above: Performed By: #### G LU1HR #### [facility] [address] [place] [address] Dr. Valeria Farris URINE MICROSCOPIC ONLYon BACTERIA SMALL Abnormal NONE SEEN [facility] Comment on above: Performed By: #### G LU1HR #### [facility] [address] [place] [address] Dr. Valeria Farris Bacteria identified Cx Nom (U) INDICATED Normal [facility] Comment on above: Performed By: #### G LU1HR #### [facility] [address] [place] [address] Dr. Valeria Farris CA OX CRYSTALS FEW Normal [facility] Comment on above: Performed By: #### G LU1HR #### [facility] [address] [place] [address] Dr. Valeria Farris CAST NONE SEEN Normal NONE SEEN [facility] Comment on above: Performed By: #### G LU1HR #### [facility] [address] [place] [address] Dr. Valeria Farris Crystals LM Nom (Urine sed) SEEN Abnormal NONE SEEN [facility] Comment on above: Performed By: #### G LU1HR #### [facility] [address] [place] [address] Dr. Valeria Farris Epithelial cells LM Ql (Urine sed) MANY Abnormal NONE SEEN /RARE [facility] Comment on above: Performed By: #### G LU1HR #### [facility] [address] [place] [address] Dr. Valeria Farris MUCOUS TRACE Abnormal NONE SEEN [facility] Comment on above: Performed By: #### G LU1HR #### [facility] [address] [place] [address] Dr. Valeria Farris RBC 2-5 Abnormal 0-2 [facility] Comment on above: Performed By: #### G LU1HR #### [facility] [address] [place] [address] Dr. Valeria Farris WBC NONE SEEN Normal NONE SEEN [facility] Comment on above: Performed By: #### G LU1HR #### [facility] [address] [place] [address] Dr. Valeria Farris VAGINITIS/VAGINOSIS DNA PROB Sam 05-25-2022 Litzy species Negative Normal Negative [facility] Comment on above: Performed By: #### P REGQNT #### [facility] [address] [place] [address] Dr. Valeria Farris Gardnerella vaginalis Positive Abnormal Negative [facility] Comment on above: Performed By: #### P REGQNT #### [facility] [address] [place] [address] Dr. Valeria Farris Trichomonas vaginalis Negative Normal Negative [facility] Comment on above: Performed By: #### P REGQNT #### [facility] [address] [place] [address] Dr. Valeria Farris UA (CLEAN/CATCH) RIVETER AUTOMOBILE BRAKES/MICRO I F IND.on 05-04-2022 Bilirubin Ql (U) Negative Normal NEGATIVE [facility] Comment on above: Performed By: #### P REGQNT #### [facility] [address] [place] [address] Dr. Valeria Farris Clarity (U) CLEAR Normal CLEAR [facility] Comment on above: Performed By: #### P REGQNT #### [facility] [address] [place] [address] Dr. Valeria Farris Color (U) LT. YELLOW Normal YELLOW [facility] Comment on above: Performed By: #### P REGQNT #### [facility] [address] [place] [address] Dr. Valeria Farris Glucose Ql (U) Negative Normal NEGATIVE [facility] Comment on above: Performed By: #### P REGQNT #### [facility] [address] [place] [address] Dr. Valeria Farris Hemoglobin Ql (U) SMALL Abnormal NEGATIVE [facility] Comment on above: Performed By: #### P REGQNT #### [facility] [address] [place] [address] Dr. Valeria Farris Ketones Ql (U) TRACE Abnormal NEGATIVE [facility] Comment on above: Performed By: #### P REGQNT #### [facility] [address] [place] [address] Dr. Valeria Farris LEUKOCYTES Negative Normal NEGATIVE [facility] Comment on above: Performed By: #### P REGQNT #### [facility] [address] [place] [address] Dr. Valeria Farris Nitrite Ql (U) Negative Normal NEGATIVE [facility] Comment on above: Performed By: #### P REGQNT #### [facility] [address] [place] [address] Dr. Valeria Farris pH (U) 6.5 [pH] Normal 5-9 [facility] Comment on above: Performed By: #### P REGQNT #### [facility] [address] [place] [address] Dr. Valeria Farris SPEC GRAVITY 1.025 Normal 1.005-<=1.02 5 [facility] Comment on above: Performed By: #### P REGQNT #### [facility] [address] [place] [address] Dr. Valeria Farris UA PROTEIN Negative Normal NEGATIVE/ TRACE [facility] Comment on above: Performed By: #### P REGQNT #### [facility] [address] [place] [address] Dr. Valeria Farris UR MICRO IND INDICATED Normal [facility] Comment on above: Performed By: #### P REGQNT #### [facility] [address] [place] [address] Dr. Valeria Farris Urobilinogen Qn (U) 0.2 {Manolo'U}/dL Normal 0.2 - 1. 0 [facility] Comment on above: Performed By: #### P REGQNT #### [facility] [address] [place] [address] Dr. Valeria Farris URINE MICROSCOPIC ONLYon BACTERIA NONE SEEN Normal NONE SEEN [facility] Comment on above: Performed By: #### U ACSIND, UMICRO #### [facility] [address] [place] [address] Dr. Valeria Farris Bacteria identified Cx Nom (U) NOT INDICATED Normal [facility] Comment on above: Performed By: #### U ACSIND, UMICRO #### [facility] [address] [place] [address] Dr. Valeria Farris CAST NONE SEEN Normal NONE SEEN [facility] Comment on above: Performed By: #### U ACSIND, UMICRO #### [facility] [address] [place] [address] Dr. Valeria Farris Crystals LM Nom (Urine sed) NONE SEEN Normal NONE SEEN [facility] Comment on above: Performed By: #### U ACSIND, UMICRO #### [facility] [address] [place] [address] Dr. Valeria Farris Epithelial cells LM Ql (Urine sed) FEW Abnormal NONE SEEN /RARE [facility] Comment on above: Performed By: #### U ACSIND, UMICRO #### [facility] [address] [place] [address] Dr. Valeria Farris MUCOUS TRACE Abnormal NONE SEEN [facility] Comment on above: Performed By: #### U ACSTRUPTI UMICRO #### [facility] [address] [place] [address] Dr. Valeria Farris RBC 0-2 Normal 0-2 [facility] Comment on above: Performed By: #### U ACSTRUPTI ICRO #### [facility] [address] [place] [address] Dr. Valeria Farris WBC NONE SEEN Normal NONE SEEN [facility] Comment on above: Performed By: #### [facility] #### [facility] [address] [place] [address] Dr. Valeria Farris AMYLASEon 04-12-2022 Amylase [Catalytic activity/Vol] 31 U/L Normal 25-115 [facility] Comment on above: Performed By: #### G LU1HR #### [facility] [address] [place] [address] Dr. Valeria Farris BUNon 04-12-2022 Urea nitrogen [Mass/Vol] 7.0 mg/dL Normal 7.0-18.0 [facility] Comment on above: Performed By: #### G LU1HR #### [facility] [address] [place] [address] Dr. Valeria Farris CBC AUTO DIFFon 04-12-2022 BASO # 0.0 103/ul Normal 0.0-0.1 [facility] Comment on above: Performed By: #### P REGQNT #### [facility] [address] [place] [address] Dr. Valeria Farris Basophils/100 WBC (Bld) 0.3 % Normal 0.2-2.0 [facility] Comment on above: Performed By: #### P REGQNT #### [facility] [address] [place] [address] Dr. Valeria Farris EO # 0.3 103/ul Normal 0.0-0.7 [facility] Comment on above: Performed By: #### P REGQNT #### [facility] [address] [address] [address] Valeria Farris Eosinophils/100 WBC (Bld) 2.3 % Normal 0.9-7.0 [facility] Comment on above: Performed By: #### P REGQNT #### [facility] [address] [place] [address] Dr. Valeria Farris Erythrocyte distribution width (RBC) [Ratio] 12.8 % Normal 11.0-15.0 [facility] Comment on above: Performed By: #### P REGQNT #### [facility] [address] [place] [address] Dr. Valeria Farris Hematocrit (Bld) [Volume fraction] 34.9 % Critically low 36.0-48.0 [facility] Comment on above: Performed By: #### P REGQNT #### [facility] [address] [place] [address] Dr. Valeria Farrsi Hemoglobin (Bld) [Mass/Vol] 11.8 g/dL Critically low 12.0-16.0 [facility] Comment on above: Performed By: #### P REGQNT #### [facility] [address] [place] [address] Dr. Valeria Farris IG # 0.08 10e3/ul Critically high 0.00-0.[address] [facility] Comment on above: Performed By: #### P REGQNT #### [facility] [address] [place] [address] Dr. Valeria Farris IG % 0.7 % Critically high 0.0-0.5 [facility] Comment on above: Performed By: #### P REGQNT #### [facility] [address] [place] [address] Dr. Valeria Farris LYMPH # 2.6 103/ul Normal 1.2-3.8 [facility] Comment on above: Performed By: #### P REGQNT #### [facility] [address] [place] [address] Dr. Valeria Farris Lymphocytes/100 WBC (Bld) 22.4 % Normal 20.5-60.0 [facility] Comment on above: Performed By: #### P REGQNT #### [facility] [address] [place] [address] Dr. Valeria Farris MANUAL DIFF REQ NO Normal [facility] Comment on above: Performed By: #### P REGQNT #### [facility] [address] [place] [address] Dr. Valeria Farris MCH (RBC) [Entitic mass] 28.5 pg Normal 26.7-34.0 [facility] Comment on above: Performed By: #### P REGQNT #### [facility] [address] [place] [address] Dr. Valeria Farris MCHC (RBC) [Mass/Vol] 33.8 g/dL Normal 29.9-35.2 [facility] Comment on above: Performed By: #### P REGQNT #### [facility] [address] [place] [address] Dr. Valeria Farris MCV (RBC) [Entitic vol] 84.3 fL Normal 81.0-99.0 [facility] Comment on above: Performed By: #### P REGQNT #### [facility] [address] [place] [address] Dr. Valeria Farris MONO # 0.8 103/ul Normal 0.3-0.8 [facility] Comment on above: Performed By: #### P REGQNT #### [facility] [address] [place] [address] Dr. Valeria Farris Monocytes/100 WBC (Bld) 6.8 % Normal 1.7-12.0 [facility] Comment on above: Performed By: #### P REGQNT #### [facility] [address] [place] [address] Dr. Valeria Farris NEUT # 7.8 103/ul Critically high 1.4-6.5 [facility] Comment on above: Performed By: #### P REGQNT #### [facility] [address] [place] [address] Dr. Valeria Farris Neutrophils/100 WBC (Bld) 67.5 % Normal 43.0-75.0 [facility] Comment on above: Performed By: #### P REGQNT #### [facility] [address] [place] [address] Dr. Valeria Farris Platelet mean volume (Bld) [Entitic vol] 10.3 fL Normal 9.5-13.5 [facility] Comment on above: Performed By: #### P REGQNT #### [facility] [address] [place] [address] Dr. Valeria Farris PLT 195 103/ul Normal 150-450 [facility] Comment on above: Performed By: #### P REGQNT #### [facility] [address] [place] [address] Dr. Valeria Farris RBC 4.14 106/ul Critically low 4.20-5.40 [facility] Comment on above: Performed By: #### P REGQNT #### [facility] [address] [place] [address] Dr. Valeria Farris WBC 11.5 103/ul Critically high 4.0-11.[address] [facility] Comment on above: Performed By: #### P REGQNT #### [facility] [address] [place] [address] Dr. Valeria Farris CREATININEon 04-12-2022 Creatinine [Mass/Vol] 0.44 mg/dL Critically low 0.55-1.02 [facility] Comment on above: Performed By: #### G LU1HR #### [facility] [address] [place] [address] Dr. Valeria Farris EGFR-AF POLISH >60 Normal >=[address] [facility] Comment on above: Performed By: #### G LU1HR #### [facility] [address] [place] [address] Dr. Valeria Farris EGFR-NON AF POLISH >60 Normal >=60 [facility] Comment on above: Performed By: #### G LU1HR #### [facility] [address] [place] [address] Dr. Valeria Farris LIPASEon 04-12-2022 Lipase [Catalytic activity/Vol] 62.0 U/L Critically low 73.0-393.0 [facility] Comment on above: Performed By: #### G LU1HR #### [facility] [address] [place] [address] Dr. Valeria Farris LIVER PROFILEon 04-12-2022 Albumin [Mass/Vol] 2.9 g/dL Critically low 3.4-5.0 [facility] Comment on above: Performed By: #### G LU1HR #### [facility] [address] [place] [address] Dr. Valeria Farris Albumin/Globulin [Mass ratio] 0.7 {ratio} Normal [facility] Comment on above: Performed By: #### G LU1HR #### [facility] [address] [place] [address] Dr. Valeria Farris ALP [Catalytic activity/Vol] 86 U/L Normal 46-116 [facility] Comment on above: Performed By: #### G LU1HR #### [facility] [address] [place] [address] Dr. Valeria Farris ALT [Catalytic activity/Vol] 14 U/L Normal 14-59 [facility] Comment on above: Performed By: #### G LU1HR #### [facility] [address] [place] [address] Dr. Valeria Farris AST [Catalytic activity/Vol] 12 U/L Critically low 15-37 [facility] Comment on above: Performed By: #### G LU1HR #### [facility] [address] [place] [address] Dr. Valeria Farris BILI, CONJUGATED 0.1 mg/dL Normal 0.0-0.2 [facility] Comment on above: Performed By: #### G LU1HR #### [facility] [address] [place] [address] Dr. Valeria Farris Bilirubin [Mass/Vol] 0.2 mg/dL Normal 0.2-1.0 [facility] Comment on above: Performed By: #### G LU1HR #### [facility] [address] [place] [address] Dr. Valeria Farris Globulin (S) [Mass/Vol] 4.2 g/dL Normal [facility] Comment on above: Performed By: #### G LU1HR #### [facility] [address] [address] [address] Valeria Farris Protein [Mass/Vol] 7.1 g/dL Normal 6.4-8.2 [facility] Comment on above: Performed By: #### G LU1HR #### [facility] [address] [place] [address] Dr. Valeria Farris PROF 14(COMP METB)on 022 Anion gap [Moles/Vol] 13.1 mmol/L Normal [facility] Comment on above: Performed By: #### G LU1HR #### [facility] [address] [place] [address] Dr. Valeria Farris Calcium [Mass/Vol] 8.7 mg/dL Normal 8.5-10.1 [facility] Comment on above: Performed By: #### G LU1HR #### [facility] [address] [address] [address] Valeria Farris Chloride [Moles/Vol] 100 mmol/L Normal 98-107 [facility] Comment on above: Performed By: #### G LU1HR #### [facility] [address] [place] [address] Dr. Valeria Farris CO2 [Moles/Vol] 25.4 mmol/L Normal 21.0-32.0 [facility] Comment on above: Performed By: #### G LU1HR #### [facility] [address] [address] [address] Valeria Farris Glucose [Mass/Vol] 87 mg/dL Normal 74-106 [facility] Comment on above: Performed By: #### G LU1HR #### [facility] [address] [address] [address] Valeria Farris Potassium [Moles/Vol] 3.5 mmol/L Normal 3.5-5.1 [facility] Comment on above: Performed By: #### G LU1HR #### [facility] [address] [address] [address] Valeria Farris Sodium [Moles/Vol] 135 mmol/L Critically low 136-145 [facility] Comment on above: Performed By: #### G LU1HR #### [facility] [address] [address] [address] Valeria Farrsi Urea nitrogen/Creatinine [Mass ratio] 15.9 mg/mg Normal [facility] Comment on above: Performed By: #### G LU1HR #### [facility] [address] [address] [address] Valeria Farris US PREG CERVICAL LENGTHon [...] GERARD GONZALEZ Date: 2022-04-12 16:39 Normal [facility] UA (CLEAN/CATCH) RIVETER AUTOMOBILE BRAKES/MICRO I F IND.on 04-11-2022 Bilirubin Ql (U) Negative Normal NEGATIVE [facility] Comment on above: Performed By: #### U ACSTRUPTI UMICRO #### [facility] [address] [address] [address] Valeria Farris Clarity (U) CLEAR Normal CLEAR [facility] Comment on above: Performed By: #### U ACSTRUPTI UMICRO #### [facility] [address] [address] [address] Valeria Farris Color (U) LT. YELLOW Normal YELLOW [facility] Comment on above: Performed By: #### U ACSTRUPTI UMICRO #### [facility] [address] [address] [address] Valeria Farris Glucose Ql (U) Negative Normal NEGATIVE [facility] Comment on above: Performed By: #### U ACSIND, UMICRO #### [facility] [address] [address] [address] Valeria Farris Hemoglobin Ql (U) TRACE-INTACT Abnormal NEGATIVE [facility] Comment on above: Performed By: #### U ACSIND, UMICRO #### [facility] [address] [address] [address] Valeria Farris Ketones Ql (U) Negative Normal NEGATIVE [facility] Comment on above: Performed By: #### U ACSIND, UMICRO #### [facility] [address] [address] [address] Valeria Farris LEUKOCYTES Negative Normal NEGATIVE [facility] Comment on above: Performed By: #### U ACSIND, UMICRO #### [facility] [address] [address] [address] Valeria Farris Nitrite Ql (U) Negative Normal NEGATIVE [facility] Comment on above: Performed By: #### U ACSIND, ICRO #### [facility] [address] [address] [address] Valeria Farris pH (U) 6.5 [pH] Normal 5-9 [facility] Comment on above: Performed By: #### U ACSTRUPTI, ICRO #### [facility] [address] [address] [address] Valeria Farris SPEC GRAVITY 1.010 Normal 1.005-<=1.02 5 [facility] Comment on above: Performed By: #### U ACSIND, UMICRO #### [facility] [address] [place] [address] Dr. Valeria Farris UA PROTEIN Negative Normal NEGATIVE/ TRACE [facility] Comment on above: Performed By: #### U ACSIND, UMICRO #### [facility] [address] [address] [address] Valeria Farris UR MICRO IND INDICATED Normal [facility] Comment on above: Performed By: #### U ACSTRUPTI, UMICRO #### [facility] [address] [place] [address] Dr. Valeria Farris Urobilinogen Qn (U) 0.2 {Manolo'U}/dL Normal 0.2 - 1. 0 [facility] Comment on above: Performed By: #### U ACSTRUPTI UMICRO #### [facility] [address] [place] [address] Dr. Valeria Farris URINE MICROSCOPIC ONLYon BACTERIA NONE SEEN Normal NONE SEEN [facility] Comment on above: Performed By: #### U ACSTRUPTI, UMICRO #### [facility] [address] [place] [address] Dr. Valeria Farris Bacteria identified Cx Nom (U) NOT INDICATED Normal [facility] Comment on above: Performed By: #### U ACSTRUPTI UMICRO #### [facility] [address] [place] [address] Dr. Valeria Farris CAST NONE SEEN Normal NONE SEEN [facility] Comment on above: Performed By: #### U ACSTRUPTI UMICRO #### [facility] [address] [place] [address] Dr. Valeria Farris Crystals LM Nom (Urine sed) NONE SEEN Normal NONE SEEN [facility] Comment on above: Performed By: #### U ACSTRUPTI UMICRO #### [facility] [address] [place] [address] Dr. Valeria Farris Epithelial cells LM Ql (Urine sed) FEW Abnormal NONE SEEN /RARE [facility] Comment on above: Performed By: #### U ACSTRUPTI UMICRO #### [facility] [address] [place] [address] Dr. Valeria Farris MUCOUS NONE SEEN Normal NONE SEEN [facility] Comment on above: Performed By: #### U ACSTRUPTI UMICRO #### [facility] [address] [place] [address] Dr. Valeria Farris RBC 0-2 Normal 0-2 [facility] Comment on above: Performed By: #### U ACSTRUPTI UMICRO #### [facility] [address] [place] [address] Dr. Valeria Farris WBC 0-2 Abnormal NONE SEEN [facility] Comment on above: Performed By: #### U ACSINDDAPHNE #### [facility] [address] [address] [address] Valeria Farris US PREG ANATOMY SINGLEon [...] by: ALINE GALICIA Date: 2022-03-28 10:57 Normal [facility] XR SHOULDER RT 2V or >on XR SHOULDER RT 2V or > EXAM: XR SHOULDER RT 2V or > INDICATION: Pain. COMPARISON: None. TECHNIQUE: Right shoulder, 3 views. FINDINGS: No acute fracture or dislocation. Intact glenohumeral and acromioclavicular joints. Unremarkable soft tissues. IMPRESSION: Normal right shoulder. Electronically authenticated by: GILDARDOKEON TAYLOR Date: 2022-03-19 08:36 Normal [facility] AFP TETRA PROFILE (MATERNAL) on 03-08-2022 AFP MoM 0.60 Normal [facility] Comment on above: Performed By: #### U LETI UMICRO #### [facility] [address] [address] [address] Valeria Farris AFP Value 15.2 ng/mL Normal [facility] Comment on above: Performed By: #### U LETI UMICRO #### [facility] [address] [address] [address] Valeria Farris Comment Comment Normal [facility] Comment on above: Result Comment: Nicolás Ramirez, Ph.D., [facility] Director . References: Available Upon Request. . Multiples Of Median Cutoffs Abbreviation Definitions For AFP Elevations IDD- Insulin Dep Diabetes Rodriguez 2.5 Black 2.8 OSBR- Open Spina Bifida IDD 2.0 Twins 4.5 Risk DSR Cutoff 1:270 DSR- Down Syndrome Risk T18 Cutoff 1:100 T18- Trisomy 18 . For further inquiries contact [facility] at [phone]. . This test was developed and its performance characteristics determined by [employer]. It has not been cleared or approved by the Food and Drug Administration. Performed By: #### U ZAID LANDEROSICRO #### [facility] [address] [address] [address] Valeria Farris CHACE MoM 0.90 Normal [facility] Comment on above: Performed By: #### U LETI UMICRO #### [facility] [address] [address] [address] Valeria Farris CHACE Value 95.93 pg/mL Normal [facility] Comment on above: Performed By: #### U ZAID LANDEROSICRO #### [facility] [address] [address] [address] Valeria Farris DSR (By Age) 1 [place] 656 Normal [facility] Comment on above: Performed By: #### U LETI UMICRO #### [facility] [address] [place] [address] Dr. Valeria Farris DSR (Second Trimester) 1 [place] 5782 Normal [facility] Comment on above: Performed By: #### U ALEX LANDEROSRO #### [facility] [address] [address] [address] Valeria Farris Gest. Age on Collection Date 16.7 WEEKS Normal [facility] Comment on above: Performed By: #### U LETI UMICRO #### [facility] [address] [address] [address] Valeria Farris Gestat. Age Based On SUNSHINE [facility] Comment on above: Result Comment: 07/23 Performed By: #### ALEX SUNRO #### [facility] [address] [place] [address] Dr. Valeria Farris hCG MoM 0.61 Normal [facility] Comment on above: Performed By: #### U LETI UMICRO #### [facility] [address] [place] [address] [place] [address] m[IU]/mL [facility] Comment on above: Performed By: #### Jona LANDEROS UMICRO #### [facility] [address] [place] [address] Dr. Valeria Farris Insulin Dep Diabetes No Normal [facility] Comment on above: Performed By: #### U LETI UMICRO #### [facility] [address] [place] [address] Dr. Valeria Farris Interpretation Comment Normal [facility] Comment on above: Result Comment: Inte [...] identifies 60% of Trisomy 18 pregnancies. The [employer] recommends amniocentesis be offered to women age 35 and older. Recalculations are not recommended when gestational dating by LMP and ultrasound are within 10 days. Performed By: #### U ACSTRUPTI UMICRO #### [facility] [address] [address] [address] Valeria Farris [age] Normal [facility] Comment on above: Performed By: #### U ACSTRUPIT UMICRO #### [facility] [address] [address] [address] Valeria Farris Multiple Gestation No Normal [facility] Comment on above: Performed By: #### U ACSTRUPTI UMICRO #### [facility] [address] [address] [address] Valeria Farris OS[place] [address] Normal [facility] Comment on above: Performed By: #### U ACSTRUPTI UMICRO #### [facility] [address] [address] [address] Valeria Farris PDF . Normal [facility] Comment on above: Performed By: #### U ACSTRUPTI UMICRO #### [facility] [address] [address] [address] Valeria Farris Race [facility] Comment on above: Performed By: #### U ACSTRUPTI UMICRO #### [facility] [address] [address] [address] Valeria Farris Results Report [facility] Comment on above: Performed By: #### U ACSTRUPTI, UMICRO #### [facility] [address] [address] [address] Valeria Farris T18 (By Age) 1:2556 Normal [facility] Comment on above: Performed By: #### U ACSTRUPTI UMICRO #### [facility] [address] [address] [address] Valeria Farris T18 Risk Not increased Normal [facility] Comment on above: Performed By: #### U ACSTRUPTI UMICRO #### [facility] [address] [address] [address] Valeria Farris Test Results: Negative Normal [facility] Comment on above: Performed By: #### U ACSTRUPTI UMICRO #### [facility] [address] [address] [address] Valeria Farris uE3 MoM 0.75 Normal [facility] Comment on above: Performed By: #### U ACSTRUPTI UMICRO #### [facility] [address] [address] [address] Valeria Farris uE3 Value 0.71 ng/mL Normal [facility] Comment on above: Performed By: #### U ACSTRUPTI UMICRO #### [facility] [address] [address] [address] Valeria Farris GLUCOSE - 1HRon 03-03-2022 Glucose [Mass/Vol] 214 mg/dL Critically high 74-106 [facility] Comment on above: Performed By: #### G LU1HR #### [facility] [address] [place] [address] Dr. Valeria Farris HEPATITIS C VIRUS AB W/ REFL EX QUANTon 01-11-2022 HCV AB <0.1 Normal 0.0-0.9 [facility] Comment on above: Performed By: #### P REGQNT #### [facility] [address] [place] [address] Dr. Valeria Farris Interpretation: Comment Normal [facility] Comment on above: Result Comment: Nega tive Not infected with HCV, unless recent infection is suspected or other evidence exists to indicate HCV infection. Performed By: #### P REGQNT #### [facility] [address] [place] [address] Dr. Valeria Farris HEP B SURFACE ANTIGEN SCREEN on 01-10-2022 HBsAg Screen Negative Normal Negative [facility] Comment on above: Performed By: #### P REGQNT #### [facility] [address] [place] [address] Dr. Valeria Farris HIV 1 AND 2 WITH REFLEXon HIV Screen 4th Generation wRfx Non-Reactive Normal Non Reactive [facility] Comment on above: Result Comment: HIV Negative HIV-1/HIV-2 antibodies and HIV-1 p24 antigen were NOT detected. There is no laboratory evidence of HIV infection. Performed By: #### H IV12 #### [facility] [address] [place] [address] Dr. Valeria Farris RPR QUANTon 01-10-2022 Rapid Plasma Reagin, Quant Non-Reactive Normal NonRea<1:1 [facility] Comment on above: Result Comment: Plea se Note: This test does not meet current guidelines for screening and diagnosis of syphilis. This test is intended for following treatment response in patients being treated for syphilis infection. To screen for syphilis infection, a reflex cascade that includes both RPR and a treponema-specific assay should be utilized, such as Treponema pallidum (Syphilis) Screening [place] (290284) or Rapid Plasma Reagin (RPR) Test With Reflex to Quantitative RPR and Confirmatory Treponema pallidum Antibodies (306932). Performed By: #### R PRQ #### [facility] [address] [place] [address] Dr. Valeria Farris RUBELLA AB IGGon 01-10-2022 Rubella Antibodies, IgG 1.83 index Normal Immune >0.99 [facility] Comment on above: Result Comment: Non- immune <0.90 Equivocal 0.90 - 0.99 Immune >0.99 Performed By: #### U ACSIND, UMICRO #### [facility] [address] [place] [address] Dr. Valeria Farris CBC AUTO DIFFon 01-09-2022 BASO # 0.0 103/ul Normal 0.0-0.1 [facility] Comment on above: Performed By: #### [id number] #### [facility] [address] [place] [address] Dr. Valeria Farris Basophils/100 WBC (Bld) 0.4 % Normal 0.2-2.0 [facility] Comment on above: Performed By: #### [id number] #### [facility] [address] [place] [address] Dr. Valeria Farris EO # 0.3 103/ul Normal 0.0-0.7 [facility] Comment on above: Performed By: #### [id number] #### [facility] [address] [place] [address] Dr. Valeria Farris Eosinophils/100 WBC (Bld) 3.5 % Normal 0.9-7.0 [facility] Comment on above: Performed By: #### [id number] #### [facility] [address] [place] [address] Dr. Valeria Farris Erythrocyte distribution width (RBC) [Ratio] 13.6 % Normal 11.0-15.0 [facility] Comment on above: Performed By: #### 4 [id number] #### [facility] [address] [place] [address] Dr. Valeria Farris Hematocrit (Bld) [Volume fraction] 38.9 % Normal 36.0-48.0 [facility] Comment on above: Performed By: #### 4 [id number] #### [facility] [address] [place] [address] Dr. Valeria Farris Hemoglobin (Bld) [Mass/Vol] 12.9 g/dL Normal 12.0-16.0 [facility] Comment on above: Performed By: #### [id number] #### [facility] [address] [place] [address] Dr. Valeria Farris IG # 0.04 10e3/ul Critically high 0.00-0.[address] [facility] Comment on above: Performed By: #### [id number] #### [facility] [address] [place] [address] Dr. Valeria Farris IG % 0.4 % Normal 0.0-0.5 [facility] Comment on above: Performed By: #### [id number] #### [facility] [address] [place] [address] Dr. Valeria Farris LYMPH # 2.1 103/ul Normal 1.2-3.8 [facility] Comment on above: Performed By: #### [id number] #### [facility] [address] [place] [address] Dr. Valeria Farris Lymphocytes/100 WBC (Bld) 21.5 % Normal 20.5-60.0 [facility] Comment on above: Performed By: #### [id number] #### [facility] [address] [place] [address] Dr. Valeria Farris MANUAL DIFF REQ NO Normal [facility] Comment on above: Performed By: #### [id number] #### [facility] [address] [place] [address] Dr. Valeria Farris MCH (RBC) [Entitic mass] 27.9 pg Normal 26.7-34.0 [facility] Comment on above: Performed By: #### 4 [id number] #### [facility] [address] [place], [place] [address] Dr. Valeria Farris MCHC (RBC) [Mass/Vol] 33.2 g/dL Normal 29.9-35.2 [facility] Comment on above: Performed By: #### 4 [id number] #### [facility] [address] [place] [address] Dr. Valeria Farris MCV (RBC) [Entitic vol] 84.0 fL Normal 81.0-99.0 [facility] Comment on above: Performed By: #### 4 [id number] #### [facility] [address] [place] [address] Dr. Valeria Farris MONO # 0.6 103/ul Normal 0.3-0.8 [facility] Comment on above: Performed By: #### 4 [id number] #### [facility] [address] [place] [address] Dr. Valeria Farris Monocytes/100 WBC (Bld) 5.6 % Normal 1.7-12.0 [facility] Comment on above: Performed By: #### 4 [id number] #### [facility] [address] [place] [address] Dr. Valeria Farris NEUT # 6.7 103/ul Critically high 1.4-6.5 [facility] Comment on above: Performed By: #### 4 [id number] #### [facility] [address] [place] [address] Dr. Valeria Farris Neutrophils/100 WBC (Bld) 68.6 % Normal 43.0-75.0 [facility] Comment on above: Performed By: #### 4 [id number] #### [facility] [address] [place] [address] Dr. Valeria Farris Platelet mean volume (Bld) [Entitic vol] 9.9 fL Normal 9.5-13.5 [facility] Comment on above: Performed By: #### 4 [id number] #### [facility] [address] [place] [address] Dr. Valeria Farris PLT 244 103/ul Normal 150-450 [facility] Comment on above: Performed By: #### 4 [id number] #### [facility] [address] [place] [address] Dr. Valeria Farris RBC 4.63 106/ul Normal 4.20-5.40 [facility] Comment on above: Performed By: #### 4 [id number] #### [facility] [address] [place] [address] Dr. Valeria Farris WBC 9.7 103/ul Normal 4.0-11.0 [facility] Comment on above: Performed By: #### 4 [id number] #### [facility] [address] [place] [address] Dr. Valeria Farris CULTURE URINEon 01-09-2022 CULTURE URINE Culture Observations : MODERATE GROWTH OF MIXED GENITAL RIO. NO POTENTIAL PATHOGENS SEEN. Normal [facility] Comment on above: Performed By: #### U RCX #### [facility] [address] [place] [address] Dr. Valeria Farris GLYCOHEMOGLOBIN A1Con 2021 ADA RECOMMENDATION SEE BELOW Normal [facility] Comment on above: Result Comment: ADA RECOMMENDED LIMIT 4.0 - 6.0 ADA THERAPEUTIC TARGET < 7.0 ACTION SUGGESTED > 7.0 Performed By: #### P REGQNT #### [facility] [address] [place] [address] Dr. Valeria Farris Glucose [Mass/Vol] 111 mg/dL Normal [facility] Comment on above: Performed By: #### P REGQNT #### [facility] [address] [address] [address] Valeria Farris HbA1c (Bld) [Mass fraction] 5.5 % Normal 4.5-6.2 [facility] Comment on above: Performed By: #### P REGQNT #### [facility] [address] [address] [address] Valeria Farris LETHA BOX TEST PT SEND OUTo n 01-09-2022 SENT TO REF LAB 01/09/2022 Normal [facility] Comment on above: Performed By: #### N BOX #### [facility] [address] [address] [address] Valeria Farris TYPE AND SCREENon 01-09-2022 TYPE AND SCREEN Negative Normal [facility] Comment on above: Performed By: #### 4 [id number] #### [facility] [address] [place] [address] Dr. Valeria Farris US PREG TVon 12-30-2021 [...] GERARD GONZALEZ Date: 2021-12-30 17:14 Normal [facility] US PREG TVon 12-15-2021 US PREG TV [...] GERARD GONZALEZ Date: 2021-12-14 22:02 Normal [facility] HCG-BETA SUBUNIT QUANTon hCG,Beta Subunit,Qnt,Serum 571 mIU/mL Normal [facility] Comment on above: Result Comment: Fema le (Non-) 0 - 5 (Postmenopausal) 0 - 8 . Female () Weeks of Gestation 3 6 - 4 10 - 750 5 217 - 7138 6 158 - 19354 7 3697 -843659 8 25900 -978360 9 82883 -796345 10 77235 -641482 12 61121 -362887 14 30478 - 77261 15 27562 - 14752 16 9040 - 35064 17 8175 - 75287 18 8099 - 54902 Jam[employer] ECLIA methodology Performed By: #### P REGQNT #### [facility] [address] [place] [address] Dr. Valeria Farris HCG-BETA SUBUNIT QUANTon hCG,Beta Subunit,Qnt,Serum 65 mIU/mL Normal [facility] Comment on above: Result Comment: Fema le (Non-) 0 - 5 (Postmenopausal) 0 - 8 . Female () Weeks of Gestation 3 - 4 10 - 750 5 217 - 7138 6 158 - 89458 7 3697 -286877 8 32745 -997864 9 54521 -633739 10 62207 -049782 12 97846 -848265 14 64548 - 81357 15 24942 - 90474 16 9040 - 50284 17 8175 - 19821 18 8099 - 01243 Jamel ECLIA methodology Performed By: #### U ACSIND, UMICRO #### [facility] [address] [place] [address] Dr. Valeria Farris HCG-BETA SUBUNIT QUANTon hCG,Beta Subunit,Qnt,Serum 18 mIU/mL Normal [facility] Comment on above: Result Comment: Fema le (Non-) 0 - 5 (Postmenopausal) 0 - 8 . Female () Weeks of Gestation 3 6 - 71 4 10 - 750 5 048 - 9874 6 718 - 27672 7 7289 -766843 8 59088 -272866 9 10892 -114989 10 42137 -813385 12 85853 -283566 14 11998 - 20988 15 12293 - 41553 16 6680 - 04433 17 7688 - 67364 18 5105 - 01887 [employer] ECLIA methodology Performed By: #### G LU1HR #### [facility] [address] [address] [address] Valeria Farris PREG QUANT HCGon 10-05-2021 HCG QUANT <1 Normal [facility] Comment on above: Performed By: #### P REGQNT #### [facility] [address] [place] [address] Dr. Valeria Farris HCG RANGE SEE BELOW Normal [facility] Comment on above: Result Comment: 5-50 0-1 WEEK 40-300 1-2 WEEKS 100-1,000 2-3 WEEKS 500-6,000 3-4 WEEKS 5,000-200,000 1-2 MONTHS 10,000-100,000 2-3 MONTHS 3,000-50,000 2ND TRIMESTER 1,000-50,000 3RD TRIMESTER Performed By: #### P REGQNT #### [facility] [address] [place] [address] Dr. Valeria Farris FREE T4on 09-12-2021 Free T4 [Mass/Vol] 0.88 ng/dL Normal 0.76-1.46 [facility] Comment on above: Performed By: #### P REGQNT #### [facility] [address] [place] [address] Dr. Valeria Farris TSHon 09-12-2021 TSH 1.564 uIU/mL Normal 0.358-3.740 [facility] Comment on above: Performed By: #### 4 [id number] #### [facility] [address] [place] [address] Dr. Valeria Farris TSH RANGE SEE BELOW Normal [facility] Comment on above: Result Comment: <0.3 4 UIU/ml HYPERTHYROID 0.34-5.60 UIU/ml EUTHYROID >5.60 UIU/ml HYPOTHYROID Performed By: #### 4 [id number] #### [facility] [address] [address] [address] Valeria Farris US VENOUS DOPPLER L [...] GERARD GONZALEZ Date: 2021-09-12 14:31 Normal [facility] Coding Summaryon 10-16-2020 Coding Summary HTMLBase 64 HxavebvaWXw9nTj+PGhlYWQ+ NR2RBYWhP17niUMavU1LB3uR OS2SNSYYOAWSXC7AMP5aqMP5 XSiuI9EpyqNo AndgmTDtRR98KLh2VOK1uNqw ETuraZ8pdYPfX5k8DxFoGL68 fG20TNokVIHoVdX3JjIgepli bWFy D3dgVaYqcKSzCfr+PHRhYmxl IHdpZHRoPScxMDAlJyBzdHls RO6lAu2eVBWwTJFmoXmzjTKf OiBj l5ibJILaNKnkNC3pwOwvM9Rs jSP8PAJfd1b3Gi19bPU+PHRk DVL6kLffMTzfs003SvTnn1qg IDM3 gNOgINnxGGG3A19mp9Q8CLZi ITLcAES6jME6nT3efGpnkuwy S7VvyZKaCgQ8TZJ2tIRbyH9l bGln xbohaL9lMci+Y18JZR1HFIIC OT6XRdl1X8OjEicbcVM+PC90 WKYkTU29bYVxhBEyz1dyjEf3 JzEw LZFmRYO5iBadMFemo3OmUZGs R85lfBFgk5F5VMNvoPhhbRRz UhJxtSF4oE5jMQrclijzl1ek dzsn Eimrt0uwhn10fX90R71wVWcq TXPvZAN7PEFzJEIfrMkfoz5v gO9iLq5+HIxmu9kef6vknCl3 IjIw RZApcoKyeBsxWCD9m7UwJs02 D0TbfBgqh6HqInj9ai38qYDv y3Q9jLO5OEvqSSBlpV6rURko ZnQ6 CMLoJoYncO69aCRfKSpuQr5s bStvrGdlLK4fKENboglsZLCf eT2zZVLxvPOwuKxhJQ5uZBSx bjtm n875JzXkPVH0KBQlvOQiS0Sy iS3rCtUeXZJaVYYnU2BvfYDz DDvfT591UPvmMlG1XQUujwId Y2Fs XBIxcQqdUnM4i2Z1Nm6Um1Mu jpzuCTW4BQlhPNY5RmW7DbRh HxY2N5TlCfb4ENQucCnnCW9g J3Bh OUOcbwjjvaovlXD5CHWwZTUm zH61oZYqLIftQs4rg4G0t567 KSZfZVZfhL08Tb2lwKyiXCUu dCBU bY8msllxh2chulfrCbXtTFTg RYq4UFe3MUItoZchMaNlURC1 PhL9HPN3rDZpxI3fiOgvqovf dG9w Oyc+E79xmY0lDCZ0FDF0kjfo IAFtsxYmOG11DD95C3LwQgyv dGFibGU+TEIibpUtvXonKQ3h YmFj n7dcr9XtRLnxU8EaVTKbOMls Rtv1ZGMeOTM0qZH8iM1mWFNk FJeeb2V4ySB5T5JvmbPqhs8d b2xs GPQxYCpfJ37jgKKmd1C7KDZi cTK5LEDeiImoLcWarW71Bif+ FRFcnIhpf3UgQtbqb0djx7mv dGg9 FxIbEOOxycTlyRgxPXW1y2Ly Oo00W11uCGmqYZSgPGMrBKAk BJCjxIoyjy5ekG7rNf3+PGNv bCB3 gNP0rB9cKGZhXeN7TBmeG599 MgWelNZhAnovn1fda6cydRt3 FvKdYYTpbtEgwFvhGWJ4m1Lo Lz48 Y94lURgbQOIwVRWsUHNeOWRs aKvkiu2bbD8rUp3+GT3wt6yd xk94sD82rCD+SSYnTEQ6pThg PSdw HIBvaR7kWRzsHtM6CJIiKpZu xX73zLTsVUphVh2kjOeigOmg LB2eRBIztywxz218FtEkf5mj IDEw jRKnVIvcNFI7G68hj1K3HONz HOSxMAO2zDN9qP3vzTkzwoxf bGVmdDsgdmVydGljYWwtYWxp Z246 IHRvcDsnPlBhdGllbnQgTmFt JGg9N0WwHeh6NHMemPnxUU2n oVAoGWvoRi3xbFupuKkdVA0s NTBp ezeag659UsZdn8alVISctZWs CBydKJQ8E51wr8X9FWKlMUVu UMC7hEL0oL5yrZwboxvytAYp dDsg mfGgfRjcOHlgCMxwB402JVGf pCbkObCkacMsIOEnuWA8VH70 SO91jAZfd3A7hWN8G6SgJYHy bmct aqxqlNG0LBScUBFaqE61Pb7a fNhmHj8mTIGgSVU3EOGwcHHb N5XkiT2dEuDtMCRfZXKzV5Cv eHQt WFfdD038GMtqNsB5ZXApakLl Z4OfICPdsXjxOjV9u8E4Bl0Y W1G6FF17BX15bALhe6Z6zMR2 J3Bh ULBjncxmhiyscLN2SEDsZYHy gI93Qo8edIrgPa0zWLVmCMG7 LQPnuVLjR7BtsD9oOjQiZVKb MDAw X0XtpHSgDLgbN120XXuuXkN5 HNXgtzMrL1RoBZMrwBlcSjP1 q7P3Tj8ELKw0LA71FV92rLBo c3R5 dRF2I2BmQWDqeopslqqpnNZ0 ZJWjGJRskK80Ht9yzHoxTh4p CLMvOHV4REFwtZDcV4QcgZ7a OiAj KJSnODKkW8MzdIWhBOsjM869 ZBmuFpD0HUTyhlDrY5JqCZYo pWgwPlQ2s1Y2Cu5AFVSpWV01 IFR5 jEC2RT52NV97X1PhFyzbzRTd bGU+PHRhYmxlIHdpZHRoPScx IMIkMaGdhDcgRR1xBj5dPASb LWNv bYzjwHAfHcOdf9kcIXAgJFps SX2waRapO9CyqIV8PZVgr1d9 Lr77A83bM4HdbSU+PGNvbCB3 aWR0 rN8yNvIwLuR6AClsF718IdGc yATtFgofk8tnq9cdjXe0SgK5 BIXhvuFkxTsvUEJ5t6WcRa00 Y29s IHdpZHRoPSIxNSUiIHZhbGln ub6slY0jZh5+LXRqvEH7aAN2 zC3jFhAtIvL3JAxmS218HuPf cCIv Qlmbl2lgq2lopDe3IvUlWAMk prSifNslUCO4i8QpUu69Q2Va nUluu2OqPhn5dj22yNUzd9V1 bGU9 O0GlJSOfpdbjgUMaoVlqFV1b VPPysfbxWZBhjC4aZWUoP3a5 SzLkMmW8HBjfU9NmxtW9YGXj cHQg NArnAQU4K84fs7W8MNQhZGGd KYK4hCI5iI6qsGamodqszYVc uXdeyxPwhGqcPLusSUimN564 IHRv yFvgYHEbiJ8cBBEkhRZstSxi JJ7gTOYxvycvJhKOZmXORtJP LCBNRUdBTiBNQVJJRTwvdGQ+ PHRk PZW2bCkxNVxrOIKyzG2nHBYo M5b5FrYdPvX5BQmlO8PzQJVm tbmzNw54pJ6jSkJxChJ8OVam O2Zv ziH0YNJzmKUzKVaxWML2M78v c1S9CDKaXDQqKTA0gRN2uE4g bGlnbjogbGVmdDsgdmVydGlj YWwt TAwcB397WCFeiHkkYqFeBxT6 WtF0BHD2S3OdKpp5TICrsMam AH5csLDiQGgyOm0ooLmwbGcx MC4w VLDgbifeGMLzwI5cJZDryXJq lFpcUL7cMWUbqjggl539UsTw JOI3TFXlfTDbS5SxaD5zKsQu MDAw JBRdI5BncAEcCLdfU027YAxe KfL1HZAgamOoH5AtYFLoiEle LeN4z3R8Jp5yQHHXWXOktkxr dGQ+ NUNrFZM5cFjrKEcmELTqmO7l RTRaB5x5YkIzCmM3XLtoQ7If IVQzntsfHb16yY3uVxIkPpY2 MGlu P0GqpkK1XRKgjJMeQWfoGZU3 B13gv7H6FQJnGTJsWIL4hRZ1 zK5syYlzwphuaDQrqLmchiMw dGlj GTweHFioJ072PONwcSpwOgUF TUFMRTwvdGQ+BIDqZSG8oQaw KMolUWUmrT8dIBPqP1c5CaBr LjA1 JLluD5FiWQLabqmvZe16pA8m AuGcErW4PSkrW9YtiuW1GNWs vDIdXBglBXF3U41jb7T9KAPb MDAw AWJ8eNU4fT9hoUamrtsiwCVy iHehfwHelVstTWdcYZxmJ199 KGIwyVoaTn5YPW43TA02K6Id Pjwv dGFibGU+PHRhYmxlIHdpZHRo XKmqIRGfZrNyeVzbYI8cSv4u WDNlJVRjkMttiFJlUaKdc4ph YXBz PYbtTZ5xbFloJ3RmiZI6JQJs x2r4Qr41H84fD0FmtUV+PGNv lTA7vLI2xW1rJeUaObA3NZsv Z249 CvMjlZKtSdvod5bkt6bacLm5 IhBmCJBdefIxdTgjPOZ4g3Hk On94V78aGQwqYUOuICIrBSTa IHZh bSiqyj9viT5bBr6+PGNvbCB3 jKI5cX9iHxVfYdS7MJmyG272 UfIlvNCjNspuR66sZ0OiuWR+ PHRy Cof2ESLmbLapNI7vdEApTCyq Gp4rLHX2TqNbNzSdTGbnL5Nf AZUxsjurdwhynKX6LJCbLLRw aW47 Pz8gcLeqLa2nNEBeLBI0JLWy gMKvR2ZbiH8yMpKuXQOkDIHm B2GzzJYnUBpmC568NPsmZlJ9 IHZl bmYkD8HiQTFdqJobZjH6t0U4 He8CqYjrrFUdCS7zPfFjJLf2 Y0VcQuj9RSWlbTcwYG0vaHMi ZGlu If4zuOptvTvaXI8uSJVpylip a728UeLbs8arXWFrrHVxSPwl VAZ1I65bt9C2IHQgQVYcMAR3 dGV4 mG6yeFxtyhkdcMIjnKftduZf jRdkZHgoNEubU460FKQloKpb PpOIHrf8T7VgMlg7SOOtsOfj ZT0n bVVpVZfsYx1aiJrkbCkdUX0r HIYsfqkhv395WlEzu8gcZBPn cGHtJWqeOMI7D33gw9Q7EWEi MDAw JIP9hAK3nN5cvDqpwcwckGQm hIhfdjQbcYdiEMuoTMcmT469 QVGxdQbkWk6FHoz4R4SyGqo9 ZCBz sFhcYU5ylTUrHPouEg7mtRhj rCygGE0fQAAofjjmd167MwRj h8pgLGEewXJbNCjvLEI3T19o b3I6 NPZpWVKiBVH7uIV4zI4wlIph bjogbGVmdDsgdmVydGljYWwt BWjlM980RBZqlIitFrAuhAUj Ojwv dGQ+VD96vf81U8HsAsicKvx0 XMZrOXD1jRG5dQ2gYSXsUYra r7N8cPP7T0YgopPrqp0yt8zs YXBz ZTo (more content not included)... [facility] Coding Summary HTMLBase 64 HugrzjpgVZg7aYr+PGhlYWQ+ CC7FJZYhI13ccNNqhQ5ZY7nQ EF2RXVEOGWUEHB2FSC6jdJL6 OGgwU6KsxeHp BncssDKfUX29IXt0NPV8bSyv TFbeaQ7shQAwM7f4OxRgZP50 zL65YAbhULLbCqV1GzCkafax bWFy T3nxKlZckKIdKvj+PHRhYmxl IHdpZHRoPScxMDAlJyBzdHls FB7kLl4hZOJuUEErhLehtZGv OiBj y9qbDZDkZIygDN1kmNbjO6Xt jXV9CPYtw7d2Xz01mMV+PHRk IYA5iMfhLUppy316PuPmv3qg IDM3 bFPrZWnnBUY0C30kf8S5WUYk XWDxEXG4wWG4rW3ojDqizrpu Z6SvfVJmHfJ2SSU0qVEpvF3n bGln meumhV8wJvd+T24VJF8FTEVR SQ6QIzg4U1JqTekksBO+PC90 BAThJF28lSBurZAwf5aakUo1 JzEw PJFiTZE3bPahDNgav6XnDWIk H92hvLWii8G4FSOtfKozdOXe NlXqpGG9jN3gSOvwnznox9jh dzsn Muxjf9ftfc89oQ51Y75iQFxu UFRaIJX1JBMdXEQcqDzreg3j mE7wUm5+XKqle9kcd6yxyCu3 IjIw DAXerlHvjJouXHA3i2JgXn32 I6HahJujm0LcKda1jb20gYQf n8D1xZY4WUsjDNPziH4eUPqn ZnQ6 EIQiOtWhaX75xUQnHOkgQx1c aJjlyBcvBK2wDFAtubosQYZf gB3lEPGhzWBonClwCB1mWOLv bjtm e952UqVqWBL1CQBrqNIvJ2Eb iC6xCoWgFKLhMPGvT9AhcZFg ZKolS951EXesDjV1YJEzxoQq Y2Fs CDYbiPqfErH3g6K1Mg2Xs1Gn yvwcWTB0QRloGCK3KtQ0CcMd CnT6A6EfYqa9JMLucEolJX4p J3Bh XDDekhwavrdsiEK9SLBnNSFl gV11jWGcIZysIi7ml1M2q887 KYXzXPEsnI93Yd5npQsnMGJe dCBU nH4syjwea8jbllxgGzJuIOUl CTo5OSr2HEZrwQlmBsEpCCU2 SdO8PWS6iGXrqE8lcNvvhkkh dG9w Oyc+P32tzB9aSMD7PKC7dqsa TIDpzeHfUZ77QL49M5JkVgnz dGFibGU+UYSilmDsbFqrGO3u YmFj b9vxt2KbXTbtF2WvGODyTVps Hkj5QYEeNLC3kTK2tG8hQCId KUppd4V5yKS2T9IoisQfnx4f b2xs JNJgTTvgH23iwKFon7M9LGTx nTW0DIRzdTchDdFknV45Bnz+ LKEweFtmf4RoZiesx1ntl7vr dGg9 DiPhILPxozKaaOndMHR6b1Le Xl07R70kTOqmXFJjOJGsFSHk VOUffUlggw8gvR1fCg0+PGNv bCB3 bXY2vX8vERIaXvL1OEnzO490 UlUtrPWqAlakr7pdu1ubdUp2 BtCfQOXqxbRjdQhzXKA8c7Lz Lz48 N41xGEtoRFShCREhJMJyZFOn dAdroy5ypX5hVr0+YI1kd1hn kh56aG70vIL+SUSiXZF7oZtf PSdw SRRbbS4rDSedRiJ0FPQrWnHf oL21pJYgBLjjXt1oxSqnvUpt GL6cHMTnaqhpp348YuBxi4me IDEw pEXiSOfwRRA8B75fa9I6QCVd GPWpOGT2cON7oS5unXdlfdoq bGVmdDsgdmVydGljYWwtYWxp Z246 IHRvcDsnPlBhdGllbnQgTmFt TSa8F1EfKfo8TWNpwLgpPP3w vLFbYKohIc5wcVmuxGipQF9e NTBp ffhxv083CtNkk4voOHTiuNCj LSejHFH3N72fd7Y9KPZiLRTu EIC5eJA2wP0wzFriyibniXNu dDsg ozHvwStzVIljLVwmR475CIPk eJevXqPgfhIcGGQbtDL7PS59 YW09kGIhg6S9dKQ1I3XdURDa bmct ktgmbRA2SMRoNUBzfX22Gd9i aXpdVa2iPUSgWUR7CTFwiDIg L4WdfN9tEwNiJTSwIBQyO7Ir eHQt NYciS711SCuoHoO9ZPQhpyWv N8JmVLSqrVjfMxP5g3K1Ry9C E1U7OI84SV82zJWbu1U0bFD2 J3Bh KEDvcgjmblxolFF1IXNjAWAc jU81Yp5arXumWp3sUZIsIBV1 IZLijVRaO9TlmJ8rMjCdPWZd MDAw K9ZfaRYfXCqwE334EVcvOeT7 BLIsmiGxZ2YrQEYfsLhiMuB1 q1H1Kf3VBJm2ZF08IQ01yPZb c3R5 aJC2J6AlLOWnodhqibgxySU3 BZQdXTEomH17Xv1ohDfzRg8z WZGgOGB8BAPeyNRdP3GzbA6p OiAj JUVsIFQcH4LdoXNoRCwjB339 BTwwVqG2BTUtcgCrP1SmYNMl vMddQcL1k5V6Xy5HRCJgKX53 IFR5 eAB7QG85QF09I7VmXgxpuJQa bGU+PHRhYmxlIHdpZHRoPScx JVQyOgHjfMnvCI4qZt9lUQRa LWNv uLcbtLIdDbQcm8dtHRTfFPta OU6reDmfH8FgcQN9PENqr0x9 Qx29J99vA1MubAO+PGNvbCB3 aWR0 sI1uNrCxAvD3ESouX561XhCg sWQyBvayc0sea6hyoQv3FmP1 QAYbozKteUwrHQT4y6HiVs58 Y29s IHdpZHRoPSIxNSUiIHZhbGln sk2bvG9dGp8+QITeaNL5pNC4 lZ7oDrJkZjT1WGxfU958UuQq cCIv Vvsoo6xnh9bobHk9YyToDNGl elBucUgpHMZ0l6EtTy95J9Sk kBflv6JlYfm1ez01nFOao7Z0 bGU9 K3KyWGZwcpsdtQZsrInnAS1i LLEudngcYEBkvY3eIVHuA7c0 SaOzOoH4CZgkG8HkodK4CAFs cHQg AYjbPYH8G77zl7P7ABRrWUFt MPR4nTC7gH8aoXscobkmuTCe nLhflyFzsVucPCanGDsvQ979 IHRv hYfoISJtgX7qBVZnhDIilZoi QS4sLHBylxrkBtKPUdDSSwBW LCBNRUdBTiBNQVJJRTwvdGQ+ PHRk BMW2zCnuWMkcVXOmeA8xUWAu S4f9FpIeJfY4MJvhU4JdJEFn nozbVf00lN6aIzKaKnI5ZMdx O2Zv yyC7JFYnjJObEZpsYZA8T37d m1Z5HGLoAEAjMWD3hCE8mK6d bGlnbjogbGVmdDsgdmVydGlj YWwt MVaiF474GTUcyChwRkEcMgG9 ZwR5EOL6P9WfJbl6XXPvgNnp OJ8ghJBtUMzmNb6uoAbvbObz MC4w PZKwixgjWYNxdD1bYVPbaFRm uSwtIO1gIXDmxdnfi009OhOn QNE4IGBmqEQfI5PzuT9fQtEx MDAw SCQpL2BneZCmEAxyF959EXyp EnS9DAHudsBtG2LtJTTqoHlc HeK0r6W0Ta8fHPJSJZKxzbks dGQ+ CYYiQDA5mHneGWkvCKForO1s RCKuK7v6KsJuZuJ0TTxhH7In IZSpdaynTa43mS9tFzXiYxM8 MGlu A7QfbsT0HBPgwALbWCtlZWX4 O88vp4D4CYTvPALcQAY0xKX1 xV3zqNdxdlcnyNIdnNdmhxTv dGlj XNfdDGjhI553MIXddKuoTzPI TUFMRTwvdGQ+DITjUHV1sTlo RGkbYNWdqY5zNZNgB1q2FiBg LjA1 TEhyV1XiNSHfptmiCp18gQ4x MxGsXkS7EHpeJ5VgsqB5XHWb tYCbBPppDFG8Q38be2E8FFCm MDAw FCJ8rJY6oB8heReadnwxwCAr kFckcoQurCdsHSruYIdrO014 ASJhtPjkBoErCODsYN1jzAhb dGQ+ DO95js89X9HzIohjJkk6ACAg MNA4vYK9qP2mRKZoTPiel9P2 xTX5A8CxpcFutg4hp7maSQFq ZTog X25kcWJbu7V9VSKgeAR0YJKu bFadFfAsiW78Rec+PGNvbGdy k7DqSpoui7acg2oarQh7BnIk JSIg pkQmtVewPST7u7UqSm74N70r IHdpZHRoPSIzMCUiIHZhbGln ch3obJ1mLn4+XTSkuBM0gHI9 aD0i PnDoLeY8AQmvS941DnKmdVNu Dsrri8ixv4dbkEe9MfSaVCKl puLwaNdvJMX0d6EoMx34I7Ma bGdy i1WpZeg4sa79qHVnv4U9nID4 Z0IzQDFkryufvPNxlMdbOA7e JVMueoxwKLAsqY5bSFBgO7t4 OiAw AdL3JVdhF0AgaoU3TGHwqSYr VPUzbPNDjU5thkvcs9atqzip NmUcBOTgAYo1IWs5YUYhyCcj OiBs DJE6RjI6QKJ5uUVfxA1vjUdj mjafgS9mFph+MZx2e1nhjCLo GE9joPD2QH68OY85gKToh8C1 bGU9 P3KsEPWdwmihfgfikUP8RZPc BGGkrD37Pk7iwNcdLp2dLJUr RUQ0XQRahNXsD4FogI1oYrUp MDAw JKVgO0TkqGNsKWsfM091FXmm KkF1ZEVejtPiQ6FkLQUykUjq RhT8c8O5Wi9ARL70IK47NF00 dGQg w8Y6vLH4Y8JmTHKmtofgbcty cBB6OSZsCGYpmC40Ls5pvHpp Ft2sPMYbTIK8YAVehYJuI3Zl bG9y JeWcSAMxPUPkT0VyxKRmPOeg B035XFuxHvS9DWYtlgHiQ8Zr OJCiuXecAwY9y2I1Dr1ZCx80 PC90 BG64nWAlz4I1uFI7H4FqSJWo ybpxhemorLJ7LGWhUOJtyY90 Qz5nnDdcDk8zIFFbEME2TEBn bWVz W2HsaU8mBcYmRAJgVTLcK7Ez yPYuNFjgP950SMtmMmH2RNMp iaIpX9OdBZQxoYfwGjI2f1G9 Jz5Q MSbuidt3U5PnPweuxNJ+PC90 ODQwXD09aBTvtMYqz4qrgXv5 TxXmIVBdCAW7jFpsFKyos0Ig ZXIt Y29 (more content not included)... Normal [facility] .Auto Diff 110-11-2020 Auto [place] % 6 % Normal 05-04 [facility] Comment on above: Performed By: #### 7 [id number], [id number], [id number], [id number] ####[facility] (DEFAULT)[address] [place] [address] Baso Abs# 0.0 x10 Normal 0.0-0.2 [facility] Comment on above: Performed By: #### 7 [id number], [id number], [id number], [id number] ####[facility] (DEFAULT)[address] [place] [address] 05025 Basophils/100 WBC (Bld) 0.3 % Normal 0.2-2.0 [facility] Comment on above: Performed By: #### 7 [id number], [id number], [id number], [id number] ####[facility] (DEFAULT)[address] [place] [address] 40545 Eos Abs# 0.2 x10 Normal 0.0-0.4 [facility] Comment on above: Performed By: #### 7 571606, [id number], [id number], [id number] ####[facility] (DEFAULT)[address] [place] [address] 59251 Eosinophils/100 WBC (Bld) 3.4 % Normal 0.9-4.0 [facility] Comment on above: Performed By: #### 7 051479, [id number], [id number], [id number] ####[facility] (DEFAULT)[address] [place] [address] 80249 Lymph Abs# 2.5 x10 Normal 1.3-2.9 [facility] Comment on above: Performed By: #### 7 230330, [id number], [id number], [id number] ####[facility] (DEFAULT)[address] [place] [address] 98982 Lymphocytes/100 WBC (Bld) 41 % Normal 14-48 [facility] Comment on above: Performed By: #### 7 156774, [id number], [id number], [id number] ####[facility] (DEFAULT)[address] [place] [address] 76316 [place] Abs# 0.4 x10 Normal 0.0-0.8 [facility] Comment on above: Performed By: #### 7 272570, [id number], [id number], [id number] ####[facility] (DEFAULT)[address] [place] [address] 81111 Neut Abs# 3.0 x10 Normal 1.5-9.2 [facility] Comment on above: Performed By: #### 7 450789, [id number], [id number], [id number] ####[facility] (DEFAULT)[address] [place] [address] 47079 Neutrophils/100 WBC (Bld) 50 % Normal 44-88 [facility] Comment on above: Performed By: #### 7 497155, [id number], [id number], [id number] ####[facility] (DEFAULT)[address] [place] [address] CBC w/ Auto Diffon 1 Erythrocyte distribution width (RBC) [Ratio] 13.2 % Normal 11.5-15.0 [facility] Comment on above: Performed By: #### 7 370558, [id number], [id number], [id number] #### [facility] (DEFAULT) [address] [place] [address] Hematocrit (Bld) [Volume fraction] 36.8 % Normal 33.7-40.4 [facility] Comment on above: Performed By: #### 7 690364, [id number], [id number], [id number] #### [facility] (DEFAULT) [address] [place] [address] 92636 Hemoglobin (Bld) [Mass/Vol] 12.4 g/dL Normal 11.3-15.9 [facility] Comment on above: Performed By: #### 7 316275, [id number], 57226455, [id number] #### [facility] (DEFAULT) [address] [place] [address] 34891 Instr WBC 6.1 x10 Invalid Interpretation Code [facility] Comment on above: Performed By: #### 7 247270, [id number], [id number], [id number] #### [facility] (DEFAULT) [address] [place] [address] 37658 Man Diff? Auto Normal [facility] Comment on above: Performed By: #### 7 607388, [id number], [id number], [id number] #### [facility] (DEFAULT) [address] [place] [address] 23599 MCH (RBC) [Entitic mass] 29 pg Normal 24-34 [facility] Comment on above: Performed By: #### 7 499741, [id number], [id number], [id number] #### [facility] (DEFAULT) [address] [place] [address] MCHC (RBC) [Mass/Vol] 34 g/dL Normal 26-37 [facility] Comment on above: Performed By: #### 7 127744, [id number], [id number], [id number] #### [facility] (DEFAULT) [address] [place] [address] MCV (RBC) [Entitic vol] 87 fL Normal 81-100 [facility] Comment on above: Performed By: #### 7 170452, [id number], 80477787, [id number] #### [facility] (DEFAULT) [address] [place] [address] Platelet 204 x10 Normal 138-427 [facility] Comment on above: Performed By: #### 7 668460, [id number], 80476836, [id number] #### [facility] (DEFAULT) [address] [place] [address] Platelet mean volume (Bld) [Entitic vol] 9.6 fL Normal 6.3-10.2 [facility] Comment on above: Performed By: #### 7 347197, [id number], [id number], [id number] #### [facility] (DEFAULT) [address] [place] [address] RBC 4.25 x10 Normal 3.70-5.30 [facility] Comment on above: Performed By: #### 7 091976, [id number], 78906446, [id number] #### [facility] (DEFAULT) [address] [place] [address] WBC 6.1 x10 Normal 3.5-10.5 [facility] Comment on above: Performed By: #### 7 813277, [id number], 26265043, [id number] #### [facility] (DEFAULT) [address] [place] [address] CMP Standardon 10-11-2020 Albumin [Mass/Vol] 3.9 g/dL Normal 3.5-5.0 [facility] Comment on above: Performed By: #### 7 003281, [id number], [id number], [id number] ####[facility] (DEFAULT)[address] [place] [address] 08898 Albumin/Globulin [Mass ratio] 1.3 {ratio} Low 1.4-2.6 [facility] Comment on above: Performed By: #### 7 629090, [id number], 78477574, [id number] ####[facility] (DEFAULT)[address] [place] [address] 53522 Alk Phos 67 IU/L Normal 32-91 [facility] Comment on above: Performed By: #### 7 331487, [id number], [id number], [id number] ####[facility] (DEFAULT)[address] [place] [address] 46031 ALT [Catalytic activity/Vol] 28.0 U/L Normal 14.0-54.0 [facility] Comment on above: Performed By: #### 7 163994, [id number], 67515966, [id number] ####[facility] (DEFAULT)[address] [place] [address] 37134 Anion gap [Moles/Vol] 14.0 mmol/L Normal 5.0-19.0 [facility] Comment on above: Performed By: #### 7 528706, [id number], 77913703, [id number] ####[facility] (DEFAULT)[address] [place] [address] 83481 AST [Catalytic activity/Vol] 16 U/L Normal 15-41 [facility] Comment on above: Performed By: #### 7 [id number], [id number], [id number], [id number] ####[facility] (DEFAULT)[address] [place] [address] Bili Total 0.3 mg/dL Normal 0.3-1.2 [facility] Comment on above: Performed By: #### 7 [id number], [id number], [id number], [id number] ####[facility] (DEFAULT)[address] [place] [address] 43062 Calcium [Mass/Vol] 9.0 mg/dL Normal 8.9-10.3 [facility] Comment on above: Performed By: #### 7 [id number], [id number], [id number], [id number] ####[facility] (DEFAULT)[address] [place] [address] 58875 Chloride [Moles/Vol] 109 mmol/L Normal 101-111 [facility] Comment on above: Performed By: #### 7 [id number], [id number], [id number], [id number] ####[facility] (DEFAULT)[address] [place] [address] 89162 CO2 [Moles/Vol] 21 mmol/L Normal 21-32 [facility] Comment on above: Performed By: #### 7 669542, [id number], [id number], [id number] ####[facility] (DEFAULT)[address] [place] [address] 27079 Creatinine [Mass/Vol] 0.90 mg/dL Normal 0.60-1.30 [facility] Comment on above: Performed By: #### 7 236978, [id number], [id number], [id number] ####[facility] (DEFAULT)[address] [place] [address] 64914 Globulin (S) [Mass/Vol] 3.1 g/dL Normal 1.5-4.3 [facility] Comment on above: Performed By: #### 7 558728, [id number], [id number], [id number] ####[facility] (DEFAULT)[address] [place] [address] 74215 Glucose [Mass/Vol] 95.0 mg/dL Normal 74.0-118.0 [facility] Comment on above: Performed By: #### 7 050549, [id number], [id number], [id number] ####[facility] (DEFAULT)[address] [place] [address] 39007 Osmolality 282 mOsm/L Invalid Interpretation Code [facility] Comment on above: Performed By: #### 7 [id number], [id number], [id number], [id number] ####[facility] (DEFAULT)[address] [place] [address] 06323 Potassium [Moles/Vol] 4.0 mmol/L Normal 3.6-5.1 [facility] Comment on above: Performed By: #### 7 143357, [id number], [id number], [id number] ####[facility] (DEFAULT)[address] [place] [address] 16202 Protein [Mass/Vol] 7.0 g/dL Normal 6.5-8.1 [facility] Comment on above: Performed By: #### 7 688801, [id number], [id number], [id number] ####[facility] (DEFAULT)[address] [place] [address] 39535 Sodium [Moles/Vol] 140.0 mmol/L Normal 136.0-144.0 [facility] Comment on above: Performed By: #### 7 844263, [id number], [id number], [id number] ####[facility] (DEFAULT)[address] [place] [address] 29348 Urea nitrogen [Mass/Vol] 20 mg/dL Normal 8-26 [facility] Comment on above: Performed By: #### 7 629414, [id number], [id number], [id number] ####[facility] (DEFAULT)[address] [place] [address] 74569 Urea nitrogen/Creatinine [Mass ratio] 22.2 mg/mg High 4.6-16.2 [facility] Comment on above: Performed By: #### 7 [id number], [id number], [id number], [id number] ####[facility] (DEFAULT)[address] [place] [address] 95303 Discharge Instructionson Discharge Instructions [id number] TIFF Normal [facility] ED Clinical Summaryon 2020 ED Clinical Summary [facility] - Emergency Department [address] [place] [address] ED Clinical Summary PERSON INFORMATION Name: YANI WOODY Age: 30 Years Sex: FEMALE : 1990 MRN: Acct#: Visit Reason: Pelvic pain; PELVIC AREA PAIN Arrival: 10/11/2020 09:15:57 Discharge: 10/11/2020 12:33:00 LOS: 000 03:18 Check In: 10/11/2020 09:15:57 Checkout:10/11/2020 12:33:00 Address: [address] [place] [address] PCP: Provider, None PROVIDER INFORMATION Provider Role Assigned Unassigned DAVID GALVAN ED PA 10/11/2020 09:24:51 Linn Decker [employer] F[employer]NACE TENDER Nurse 10/11/2020 09:28:06 Kristi Case [employer] F[employer]NACE TENDER Nurse 10/11/2020 11:45:12 VITALS INFORMATION Vital Sign [...] test which were negative. She contacted her interior design director who indicated he could not see her [...] - pharynx pink and moist. NECK: -Supple (uctn-cu-daatn): non-tender. CARD: -Rate and rhythm: Regular -Edema: No -Calf pain: No RESP: -Respiratory effort and chest excursion with respirations: Normal -Breath sounds equal bilaterally: Clear -Wheezes: No -Rales: No BACK: -Signs of pain with movement: No ABD: -Distended: No -Bruits: No -Bowel sounds: Normal. -Deep palpation: Non-tender, soft, no guarding or r (more content not included)... Normal [facility] ED Note - Physicianon 2020 ED Note [...] test which were negative. She contacted her interior design director who indicated he could not see her [...] - pharynx pink and moist. NECK: -Supple (pmqv-po-lfita): non-tender. CARD: -Rate and rhythm: Regular -Edema: [...] I r (more content not included)... Normal [facility] ED Note-Nursingon 10-11-2020 ED Note-Nursing Patient arrives to [facility] ED via private car with c/o right [...] within reach. Will continue to monitor. Normal [facility] ED Patient Summaryon 021 ED Patient Summary [facility] - Emergency Department [address] [place] [address] PATIENT DISCHARGE INSTRUCTIONS Patient Information Name: YANI WOODY Age: 30 Years Date of : 1990 Reason For Visit: Pelvic pain; PELVIC AREA PAIN Arrival Time: 10/11/2020 09:15:57 Primary Care Physician: Provider, None Attending Physician: Linus Neumann MD Comment: Visit Diagnosis: Diagnoses This Visit Ovarian cyst (N83.209) Pelvic congestion syndrome (N94.89) Pelvic pain ([id number] -[id number]) Prescription Information: If you have been given a prescription for narcotics, seek immediate medical attention if you have any difficulty breathing or any sudden status changes such as confusion and sleepiness. If you or anyone you know is experiencing suicidal thoughts, mental health, alcohol and/or drug addiction problems; contact the [facility] 13/11 Crisis Hotline -Text 4HNDY ul 668270. If you received any narcotics, sedation, or [...] any legal documents With: Address: When: Cordelia Rowan [address] [place] [address] Business (1) Within 2 to 4 days Comments: Follow-up with interior design director in the next few days for reevaluation. Return at anytime for reevaluation or if you have worsening symptoms, vaginal bleeding, chest pains, shortness of breath or any other problems. Continue to stay hydrated. Medication Information: The exam and treatment you received today in the [facility] Emergency Department were for an urgent problem and are not intended as complete care. It is important for you to follow up with a doctor, nurse practitioner, or physician?s campus administrative assistant for ongoing care. If your symptoms [...] so we can reach you if necessary. [facility] Emergency Department has provided you with a complete list of medications post discharge. Please inform your barrel liner/provider of your visit and for further instruction [...] (Inserted Image. Unabl (more content not included)... [facility] Extra Greenon 10-11-2020 Tube Collected Yes Invalid Interpretation Code [facility] Comment on above: Performed By: #### 7 [id number], [id number], [id number], [id number] #### [facility] (DEFAULT) [address] [place] [address] 49607 Lactic Acidon 10-11-2020 Lactic Acid 12.4 mg/dL Normal 4.5-19.8 [facility] Comment on above: Performed By: #### 2 [id number] ####[facility] (DEFAULT)[address] [place] [address] 90532 Test Urine 1on U Preg Negative [facility] Comment on above: Performed By: #### 3 [id number] ####[facility] (DEFAULT)[address] [place] [address] 50397 U Preg Internal Control Pass [facility] Comment on above: Performed By: #### 3 [id number] ####[facility] (DEFAULT)[address] [place] [address] 10251 UA Gxzdl4gl 10-11-2020 UA Bacteria Rare [facility] Comment on above: Performed By: #### 2 [id number], [id number] ####[facility] (DEFAULT)[address] [place] [address] 28635 UA RBC 0-2 Normal [facility] Comment on above: Performed By: #### 2 [id number], [id number] ####[facility] (DEFAULT)[address] [place] [address] 04053 UA Squam Epi Few Normal [facility] Comment on above: Performed By: #### 2 [id number], [id number] ####[facility] (DEFAULT)[address] [place] [address] 72190 UA WBC 0-2 [facility] Comment on above: Performed By: #### 2 [id number], [id number] ####[facility] (DEFAULT)[address] [place] [address] UA w Micro, if Ind Standardo n 10-11-2020 Micro? Indicated Normal [facility] Comment on above: Performed By: #### 2 [id number], [id number] ####[facility] (DEFAULT)[address] [place] [address] Breakpoint UA [facility] Comment on above: Performed By: #### 2 [id number], [id number] ####[facility] (DEFAULT)[address] [place] [address] Color (U) Yellow Normal [facility] Comment on above: Performed By: #### 2 [id number], [id number] ####[facility] (DEFAULT)[address] [place] [address] 62105 Glucose (U) [Mass/Vol] Negative [facility] Comment on above: Performed By: #### 2 [id number], [id number] ####[facility] (DEFAULT)[address] [place] [address] 91434 Ketones Ql (U) Negative [facility] Comment on above: Performed By: #### 2 [id number], [id number] ####[facility] (DEFAULT)[address] [place] [address] 28893 UA Bilirubin Negative Normal [facility] Comment on above: Performed By: #### 2 [id number], [id number] ####[facility] (DEFAULT)[address] [place] [address] 22993 UA Blood TRACE Abnormal NEGATIVE [facility] Comment on above: Performed By: #### 2 [id number], [id number] ####[facility] (DEFAULT)[address] [place] [address] 40146 UA Clarity CLEAR Normal CLEAR [facility] Comment on above: Performed By: #### 2 [id number], [id number] ####[facility] (DEFAULT)[address] [place] [address] 03205 UA Leuk Est Negative Normal NEGATIVE [facility] Comment on above: Performed By: #### 2 [id number], [id number] ####[facility] (DEFAULT)[address] [place] [address] 51712 UA Nitrite Negative Normal NEGATIVE [facility] Comment on above: Performed By: #### 2 [id number], [id number] ####[facility] (DEFAULT)[address] [place] [address] 61197 UA pH 6.0 Normal 5-8 [facility] Comment on above: Performed By: #### 2 [id number], [id number] ####[facility] (DEFAULT)[address] [place] [address] 37089 UA Protein Negative Normal [facility] Comment on above: Performed By: #### 2 [id number], [id number] ####[facility] (DEFAULT)[address] [place] [address] 78748 UA Spec Grav 1.025 Normal 1.001-1.035 [facility] Comment on above: Performed By: #### 2 [id number], [id number] ####[facility] (DEFAULT)[address] [place] [address] 57479 UA Urobilinogen 0.2 mg/dL Normal 0.2-1.0 [facility] Comment on above: Performed By: #### 2 [id number], [id number] ####[facility] (DEFAULT)[address] [place] [address] 45825 Urine Source Clean Catch Normal [facility] Comment on above: Performed By: #### 2 [id number], [id number] ####[facility] (DEFAULT)[address] [place] [address] US Pelvis Non-OB Completeon 10-11-2020 US Pelvis [...] Dominguez MD 10/11/20 12:29 p Technologist: PM Normal [facility] US Transvaginalon 10-11-2020 US Transvaginal US Pelvis [...] Dominguez MD 10/11/20 12:29 p Technologist: PM [facility] Video Visit - Telehealtho n 01-28-2020 Video Visit - Telehealth Chief Complaint Medication follow up via [employer] video Subjective Interval History/HPI This visit was conducted via two-way, real-time interactive video communications from my office using [employer] due to the restrictions of the COVID-19 pandemic. No physical exam was conducted other than those areas of the body visible to telecommunications with the patient located at [address] [place] [address] [phone], with no one else in attendance. If [...] day(s), # 42 tab(s), Refills(s) 5, Pharmacy: [facility]/pharmacy #[id number], 156, cm, 01/28/20 8:32:00 EDT, Height/Length Dosing, 124, kg, 01/28/20 8:32:00 EDT, Weight Dosing 3. High risk medication use (Z79.899: Other ocean transportation intermediary (current) drug therapy) Orders: lamotrigine, 300 mg = 2 tab(s), Oral, Bedtime, # 60 tab(s), Refills(s) 5, Pharmacy: [facility]/pharmacy #[id number], 156, cm, 01/28/20 8:32:00 EDT, Height/Length Dosing, 124, kg, 01/28/20 8:32:00 EDT, Weight Dosing lurasidone, 60 mg = 1 tab(s), Oral, Daily, @supper with food, # 30 tab(s), Refills(s) 5, Pharmacy: [facility]/pharmacy #[id number], 156, cm, 01/28/20 8:32:00 EDT, Height/Length Dosing, 124, kg, 01/28/20 8:32:00 EDT, Weight Dosing metformin, 500 mg = 1 tab(s), Oral, BID, # 60 tab(s), Refills(s) 5, Pharmacy: [facility]/pharmacy #[id number], 156, cm, 01/28/20 8:32:00 EDT, Height/Length Dosing, 124, kg, 01/28/20 8:32:00 EDT, Weight Dosing General Treatment Plan Pharmacological management: Alternative medication plans were discussed with the patient/guardian. All relevant side effects and potenti (more content not included)... Normal [facility] Comment on above: Result Comment: Elec tronically Signed By: TERE TENORIO, Leiaender\.br\Date and Time Signed: 01/28/20 09:14 EDT Vital Signs Date Time Vital Sign Value Performing Clinician Facility 12-17-2023 13:04-0400 Body height 152.4 cm [facility] 12-17-2023 13:04-0400 Body mass index (BMI) [Ratio] 59.5 kg/m2 [facility] 12-17-2023 13:04-0400 Body temperature 97.5 [degF] [facility] 12-17-2023 13:04-0400 Body weight 138.4 kg [facility] 12-17-2023 13:04-0400 Diastolic blood pressure 68 mm[Hg] [facility] 12-17-2023 13:04-0400 Heart rate 92 /min [facility] 12-17-2023 13:04-0400 Respiratory rate 18 /min [facility] 12-17-2023 13:04-0400 SaO2% (BldA) [Mass fraction] 95 % [facility] 12-17-2023 13:04-0400 Systolic blood pressure 125 mm[Hg] [facility] 06-29-2023 11:10-0500 Body height 154.9 cm Lindseyangel Mcmahon MILITARY ADMINISTRATIVE TECHNICIAN-FIELD CONTROL INSPECTOR Work Phone: [facility] 06-29-2023 11:10-0500 Body mass index (BMI) [Ratio] 56.08 kg/m2 Lindseyangel Mcmahon MILITARY ADMINISTRATIVE TECHNICIAN-FIELD CONTROL INSPECTOR Work Phone: [facility] 06-29-2023 11:10-0500 Body weight 134.54 kg Lindsey Kredorys MILITARY ADMINISTRATIVE TECHNICIAN-FIELD CONTROL INSPECTOR Work Phone: [facility] 06-29-2023 11:10-0500 Diastolic blood pressure 84 mm[Hg] Lindsey Mcmahon MILITARY ADMINISTRATIVE TECHNICIAN-FIELD CONTROL INSPECTOR Work Phone: [facility] 06-29-2023 11:10-0500 Heart rate 93 /min Lindsey Mcmahon APRN-FIELD CONTROL INSPECTOR Work Phone: [facility] 06-29-2023 11:10-0500 SaO2% (BldA) [Mass fraction] 95 % Lindsey Mcmahon APRN-FIELD CONTROL INSPECTOR Work Phone: [facility] 06-29-2023 11:10-0500 Systolic blood pressure 152 mm[Hg] Lindsey Mcmahon MILITARY ADMINISTRATIVE TECHNICIAN-FIELD CONTROL INSPECTOR Work Phone: [facility] 05-03-2023 13:16-0500 Body mass index (BMI) [Ratio] 54.61 kg/m2 Katerin Haynes MILITARY ADMINISTRATIVE TECHNICIAN-FIELD CONTROL INSPECTOR Work Phone: [facility] 05-03-2023 13:16-0500 Body weight 131.09 kg Katerin Haynes MILITARY ADMINISTRATIVE TECHNICIAN-FIELD CONTROL INSPECTOR Work Phone: [facility] 05-03-2023 13:16-0500 Diastolic blood pressure 74 mm[Hg] Katerin Haynes MILITARY ADMINISTRATIVE TECHNICIAN-FIELD CONTROL INSPECTOR Work Phone: [facility] 05-03-2023 13:16-0500 Heart rate 88 /min Katerin Haynes MILITARY ADMINISTRATIVE TECHNICIAN-FIELD CONTROL INSPECTOR Work Phone: [facility] 05-03-2023 13:16-0500 Respiratory rate 18 /min Katerin Haynes MILITARY ADMINISTRATIVE TECHNICIAN-FIELD CONTROL INSPECTOR Work Phone: [facility] 05-03-2023 13:16-0500 SaO2% (BldA) [Mass fraction] 98 % Katerin Haynes MILITARY ADMINISTRATIVE TECHNICIAN-FIELD CONTROL INSPECTOR Work Phone: [facility] 05-03-2023 13:16-0500 Systolic blood pressure 126 mm[Hg] Katerin Haynes MILITARY ADMINISTRATIVE TECHNICIAN-FIELD CONTROL INSPECTOR Work Phone: [facility] 02-05-2023 09:45-0400 Body height 154.94 cm Jovita Murcia Other [facility] 02-05-2023 09:45-0400 Body mass index (BMI) [Ratio] 57.32 kg/m2 Jovita Murcia Other [facility] Other 02-05-2023 09:45-0400 Body temperature 98 [degF] Jovita Murcia Other [facility] Other 02-05-2023 09:45-0400 Body weight 137.62 kg Jovita Murcia Other [facility] Other 02-05-2023 09:45-0400 Respiratory rate 18 /min Jovita Murcia Other [facility] Other 02-05-2023 09:45-0400 SaO2% (BldA) [Mass fraction] 97 % Jovita Murcia Other [facility] Other 12-22-2022 09:30-0400 Diastolic blood pressure 96 mm[Hg] MD Aline Villalobos Work Phone: [facility] 12-22-2022 09:30-0400 Heart rate 60 /min MD Aline Villalobos Work Phone: [facility] 12-22-2022 09:30-0400 Respiratory rate 16 /min MD Aline Villalobos Work Phone: [facility] 12-22-2022 09:30-0400 SaO2% (BldA) [Mass fraction] 99 % MD Aline Villalobos Work Phone: [facility] 12-22-2022 09:30-0400 Systolic blood pressure 154 mm[Hg] MD Aline Villalobos Work Phone: [facility] 12-22-2022 08:06-0400 Body height 152.4 cm MD Aline Villalobos Work Phone: [facility] 12-22-2022 08:06-0400 Body weight 137.89 kg MD Aline Villalobos Work Phone: [facility] 07-22-2022 11:35-0400 Respiratory rate 18 /min Inge Mojicaza DO Work Phone: [facility] 07-22-2022 08:00-0400 Body temperature 99 [degF] Inge Mojicaza DO Work Phone: [facility] 07-22-2022 08:00-0400 Diastolic blood pressure 63 mm[Hg] Inge Causeyazza DO Work Phone: [facility] 07-22-2022 08:00-0400 Heart rate 78 /min Inge Mojicaza DO Work Phone: [facility] 07-22-2022 08:00-0400 SaO2% (BldA) [Mass fraction] 99 % Inge Mojicaza DO Work Phone: [facility] 07-22-2022 08:00-0400 Systolic blood pressure 137 mm[Hg] Inge Causeyazza DO Work Phone: [facility] 07-18-2022 17:35-0400 Body height 154.94 cm Alesha Cortez Other [facility] Other 07-18-2022 17:35-0400 Body mass index (BMI) [Ratio] 62.16 kg/m2 Alesha Cortez Other [facility] Other 07-18-2022 17:35-0400 Body temperature 96 [degF] Alesha Cortez Other [facility] Other 07-18-2022 17:35-0400 Body weight 149.23 kg Alesha Cortez Other [facility] Other 07-18-2022 17:35-0400 Respiratory rate 18 /min Alesha Cortez Other [facility] Other 07-18-2022 17:35-0400 SaO2% (BldA) [Mass fraction] 97 % Alesha Cortez Other [facility] 07-15-2022 17:16-0400 Diastolic blood pressure 83 mm[Hg] Inge Causeyazza DO Work Phone: [facility] 07-15-2022 17:16-0400 Heart rate 97 /min Inge Causeyazza DO Work Phone: [facility] 07-15-2022 17:16-0400 Respiratory rate 16 /min Inge Causeyazza DO Work Phone: [facility] 07-15-2022 17:16-0400 Systolic blood pressure 142 mm[Hg] Inge Piazza DO Work Phone: [facility] 07-15-2022 15:44-0400 Body temperature 98.49 [degF] Inge Causeyazza DO Work Phone: [facility] 03-21-2022 10:30-0500 Body height 154.94 cm [place] Other [facility] Other 03-08-2022 02:06-0500 Body weight 141.0696 kg LILIA RUIZ [facility] Comment on above: Performed By: #### DAPHNE TOBIAS #### [facility] [address] [place] [address] Dr. Valeria Farris Encounters Encounter Date Encounter Type Care Provider Facility Start: 01-03-2024 End: 01-03-2024 ambulatory NOAH PETERSON Not Available Start: 12-31-2023 End: 12-31-2023 ambulatory CLAUDIA VILLAR [facility] Start: 12-29-2023 End: 12-29-2023 Emergency department patient visit CHAS BALDERAS [facility] Start: 12-17-2023 End: 12-17-2023 ambulatory [facility] Work Phone: Start: 12-17-2023 End: 12-17-2023 Patient encounter procedure [facility] [place] Work Phone: Start: 12-17-2023 End: 12-17-2023 ambulatory NOAH NICHOLAS Not Available Start: 12-06-2023 End: 12-06-2023 ambulatory [facility] Start: 11-29-2023 End: 11-29-2023 ambulatory NOAH NICHOLAS Not Available Start: 11-12-2023 End: 11-12-2023 ambulatory CHARMAINE HAIRSTON Not Available Start: 11-08-2023 End: 11-08-2023 ambulatory [facility] Start: 10-29-2023 End: 10-29-2023 ambulatory NOAH NICHOLAS Not Available Start: 10-11-2023 End: 10-11-2023 ambulatory NOAH NICHOLAS Not Available Start: 10-09-2023 End: 10-09-2023 ambulatory [facility] Start: 09-11-2023 End: 09-11-2023 ambulatory NOAH NICHOLAS Not Available Start: 09-10-2023 End: 09-11-2023 Emergency department patient visit MANUEL GODINEZ [facility] Start: 08-28-2023 End: 08-28-2023 Emergency department patient visit CHAS BALDERAS [facility] Start: 08-24-2023 End: 08-24-2023 ambulatory CHAS BALDERAS Not Available Start: 08-14-2023 End: 08-14-2023 ambulatory NOAH NICHOLAS Not Available Start: 07-19-2023 End: 07-19-2023 ambulatory CHARMAINE HAIRSTON Not Available Start: 07-02-2023 Telephone encounter Lindsey philip MILITARY ADMINISTRATIVE TECHNICIAN-FIELD CONTROL INSPECTOR Work Phone: [facility] Comment on above: Sleep Lab (PSG) Start: 06-29-2023 End: 06-29-2023 ambulatory [facility] Start: 06-29-2023 End: 06-29-2023 Office outpatient new 45 minutes Lindsey Deanna Mcmahon MILITARY ADMINISTRATIVE TECHNICIAN-FIELD CONTROL INSPECTOR Work Phone: [facility] Comment on above: MOLINA (obstructive sle ep apnea) (Primary Dx); Morning headache; Memory loss; Fatigue, unspecified type; Snoring Start: 06-24-2023 Refill Katerin grewal MILITARY ADMINISTRATIVE TECHNICIAN-FIELD CONTROL INSPECTOR Work Phone: [facility] Start: 06-14-2023 End: 06-14-2023 ambulatory RAZIA MULLER [facility] Start: 06-06-2023 Refill Katerin grewal MILITARY ADMINISTRATIVE TECHNICIAN-FIELD CONTROL INSPECTOR Work Phone: [facility] Start: 06-05-2023 Orders Only Sadaf Louis [facility] Comment on above: Low back pain, unspe cified back pain laterality, unspecified chronicity, unspecified whether sciatica present (Primary Dx) Start: 05-29-2023 Telephone encounter Orders Sup port User Transcribe [facility] Comment on above: Sleep Lab Start: 05-22-2023 End: 05-22-2023 ambulatory CHAS BALDERAS Not Available Start: 05-16-2023 End: 05-17-2023 Emergency department patient visit LINA HUGHES [facility] Start: 05-15-2023 End: 05-15-2023 ambulatory NOAH PETERSON Not Available Start: 05-03-2023 End: 05-03-2023 ambulatory [facility] ER Amb[facility] Start: 05-03-2023 End: 05-03-2023 Office outpatient visit 15 minutes Katerin Haynes MILITARY ADMINISTRATIVE TECHNICIAN-FIELD CONTROL INSPECTOR Work Phone: [facility] Comment on above: Acute non-recurrent maxillary sinusitis (Primary Dx) Start: 04-19-2023 End: 04-19-2023 ambulatory CHARMAINE HAIRSTON Not Available Start: 02-05-2023 End: 02-05-2023 ambulatory Jovita Murcia Other [facility] Other Start: 02-05-2023 Office outpatient vi sit 15 minutes Jovita Murcia [facility] Start: 12-22-2022 End: 12-22-2022 ambulatory Aline Villalobos Facility:[facility] Start: 12-22-2022 End: 12-22-2022 ambulatory MD Aline Villalobos Work Phone: [facility] Work Phone: Start: 12-22-2022 End: 12-22-2022 Patient encounter procedure MD Aline Villalobos Work Phone: [facility] [place] Work Phone: Start: 12-20-2022 End: 12-20-2022 ambulatory Aline Villalobos Facility:[facility] Start: 12-20-2022 End: 12-20-2022 ambulatory MD Aline Villalobos Work Phone: [facility] Work Phone: Start: 12-20-2022 End: 12-20-2022 Patient encounter procedure MD Aline Villalobos Work Phone: [facility] [place] Work Phone: Start: 09-04-2022 ambulatory RAYSA LINN [...] 07-18-2022 End: 07-18-2022 ambulatory Alesha Cortez Other [facility] [employer] Other Start: 07-18-2022 Office outpatient vi sit [...] 06-29-2022 Subsequent hospital visit by physician CHAU Martinez [facility] Start: 06-29-2022 End: 06-29-[address] [...] 03-21-2022 End: 03-21-2022 ambulatory [place] Other [facility] Other Start: 03-21-2022 Office outpatient ne w 30 minutes Naga Wells [facility] Start: 03-19-2022 End: 03-19-2022 ambulatory LILIA RUIZ Facility:[facility] Start: 03-15-2022 End: 03-16-[address] NOAH EPTERSON Facility:[facility] Start: 03-03-2022 End: 03-04-[address] NOAH PETERSON Facility:[facility] Start: 02-27-2022 Blood pressure taking Jovita groves Other [facility] Other Start: 01-09-2022 End: 01-10-[address] NOAH PETERSON Facility:[facility] Start: 12-30-2021 End: 12-31-[address] NOAH PETERSON Facility:[facility] Start: 12-14-2021 End: 12-15-[address] NOAH PETERSON Facility:[facility] Start: 12-07-[address] NOAH PETERSON Facility :[facility] Start: 11-28-2021 End: 12-21-[address] NOAH PETERSON Facility:[facility] Start: 10-05-2021 End: 10-06-[address] NOAH PETERSON Facility:[facility] Start: 09-26-2021 ambulatory SHAIKH Vandana CURRYSIVAJune Facilit y:[facility] Start: 09-12-2021 End: 09-13-[address] GERARD GONZALEZ Facility:[facility] Start: 09-12-2021 End: 09-13-[address] NOAH PETERSON Facility:[facility] Start: 10-28-2020 History of abnormal cervical Papanicolaou smear Jovita Murcia Other [facility] Other Start: 01-30-2018 End: 01-31-2018 Patient encounter DEFAULT PHYSICIAN Facility:[facility] Procedures Date Procedure Procedure Detail Performing Clinician Start: 12-22-2022 Investigation of transfusion reaction MD Aline Villalobos Work Phone: Start: 07-22-2022 Glucose blood reagent strip Hitesh A Kittitas DO Work Phone: Start: 07-21-2022 Glucose blood reagent strip Hitesh A Kittitas DO Work Phone: Start: 07-21-2022 Glucose blood reagent strip Hitesh A Kittitas DO Work Phone: Start: 07-21-2022 Glucose blood reagent strip Hitesh A Kittitas DO Work Phone: Start: 07-21-2022 Blood count [...] Start: 07-20-2022 End: 07-20-2022 delivery only Hitesh Holloway DO Work Phone: Start: 07-20-2022 Antibody screen Jamil daniel Leung DO Work Phone: Start: 07-20-2022 End: 07-20-2022 Blood typing serologic abo Apoorva Crabtree DO Work Phone: Start: 07-20-2022 End: 07-20-2022 Comprehensive metabolic panel Apoorva Easonob DO Work Phone: Start: 07-20-2022 T. PALLIDUM AB Apoorva Peterson rgob DO Work Phone: Start: 07-20-2022 H/O: section History of CS x2 Inge Galinakaya DO Work Phone: Start: 07-15-2022 Ct thorax w/contrast material Diamante Estrada MD Work Phone: Start: 07-15-2022 Antibody screen Travbelkys Leung DO Work Phone: Start: 07-15-2022 Radiologic exam ches t single view Diamante Estrada MD Work Phone: Start: 07-15-2022 Comprehensive metabo lic panel Diamante Estrada MD Work Phone: Start: 07-15-2022 End: 07-15-2022 Blood typing serologic abo Diamante smith MD Work Phone: Start: 07-15-2022 Ecg routine ecg w/le ast 12 lds w/i&r Diamante Estrada MD Work Phone: Start: 06-29-2022 Assay of free thyroxine Mateo Meyer MD Work Phone: Start: 05-29-2022 Microscopic observat ion [Identifier] in Cervix by Cyto stain Katerin Haynes APRN-FIELD CONTROL INSPECTOR Work Phone: Start: 12-28-2021 Diabetes mellitus screening Jovita Murcia Other Start: 11-30-2021 Adult depression scr eening assessment Katerin Haynes APRN-FIELD CONTROL INSPECTOR Work Phone: End: 04-13-2021 screening Jovita Murcia Other End: 07-27-2021 screening Jovita Murcia Other Counseling Jovita Murcia Other Depression screening Jovita Murcia Other visit Jovita watkins Other Plan of Treatment Date Care Activity Detail Author Start: 12-21-2029 DTaP,Tdap and Td Vaccines (7 - Td or Tdap) DTaP,Tdap and Td Vaccines (7 - Td or Tdap) [facility] Start: 12-21-2029 DTaP/Tdap/Td vaccine (7 - Td or Tdap) DTaP/Tdap/Td vaccine (7 - Td or Tdap) [facility] Start: 05-29-2025 Screening for malign ant neoplasm of cervix Pap Smear [facility] Start: 06-28-2024 Adult BMI Screening Adult BMI Screen ing [facility] Start: 06-28-2024 Tobacco Screening Tobacco Screening [facility] Start: 06-13-2024 Adult BMI Screening Adult BMI Screen ing [facility] Start: 05-16-2024 Adult BMI Screening Adult BMI Screen ing [facility] Start: 05-16-2024 Tobacco Screening Tobacco Screening [facility] Start: 05-03-2024 Adult BMI Follow Up Plan Adult BMI Follow Up Plan [facility] Start: 05-03-2024 Adult BMI Screening Adult BMI Screen ing [facility] Start: 05-03-2024 Tobacco Screening Tobacco Screening [facility] Start: 03-12-2024 Adult BMI Follow Up Plan Adult BMI Follow Up Plan [facility] Start: 01-09-2024 End: 01-09-2024 Patient encounter procedure 01/09/2024 9:00 AM EDT Office Visit [facility] [address] [place] [address] Lindsey Mcmahon, MILITARY ADMINISTRATIVE TECHNICIAN-FIELD CONTROL INSPECTOR [address] [address] [facility] Start: 10-23-2023 End: 10-23-2023 Clinical Support 10/23/2023 8:00 PM EDT Clinical Support [facility] [address] [place] [address] [facility] Start: 07-11-2023 End: 07-11-2023 Patient encounter procedure 07/11/2023 10:00 AM EDT Office Visit [facility] [address] [place] [address] Lindsey Mcmahon, MILITARY ADMINISTRATIVE TECHNICIAN-FIELD CONTROL INSPECTOR [address] [address] [facility] Start: 06-25-2023 End: 06-25-2023 Patient encounter procedure 06/25/2023 10:30 AM EST Office Visit [facility] [address] [place] [address] Terese Valladares MILITARY ADMINISTRATIVE TECHNICIAN-FIELD CONTROL INSPECTOR [address] [address] [facility] Start: 06-14-2023 End: 06-14-2023 Patient encounter procedure 06/14/2023 8:15 AM EST Appointment [facility] [address] [place] [id number] [facility] Start: 06-05-2023 End: 06-05-2024 [...] EST Office Visit [facility] [address] [place] [phone] Katerin Haynes, MILITARY ADMINISTRATIVE TECHNICIAN-FIELD CONTROL INSPECTOR [address] [place], [place] [id number] [facility] Start: 05-28-2023 End: 05-28-2023 Patient encounter procedure 05/28/2023 9:30 AM EST Office Visit [facility] [address] [place] [phone] Terese Valladares, MILITARY ADMINISTRATIVE TECHNICIAN-FIELD CONTROL INSPECTOR [address] [facility] [address] [place] [address] [facility] Start: 05-18-2023 Hemoglobin A1c measurement A1C test (Diabetic or Prediabetic) [facility] Start: 12-22-2022 COVID-19 Vaccine ( season) COVID-19 Vaccine ( season) [facility] Start: 12-22-2022 Influenza vaccination Influenza Vacc ine [facility] Start: 12-22-2022 Cerebrospinal fluid culture [facility] Start: 12-22-2022 End: 12-22-2022 [facility] Start: 11-30-2022 Depression Screening Depression Scre jaimie [facility] Start: 11-21-2022 Influenza vaccination Flu vacc ine (Season Ended) [facility] Start: 07-20-2022 End: 07-20-2022 Patient encounter procedure 07/20/2022 Routine Perinatology [facility] Start: 07-13-2022 End: 07-13-2022 Patient encounter procedure 07/13/2022 Routine Perinatology [facility] Start: 07-06-2022 End: 07-06-2022 Patient encounter procedure 07/06/2022 Routine Perinatology [facility] Start: 02-05-2022 Screening for malign ant neoplasm of cervix [facility] [employer] Start: 11-21-2021 Influenza vaccination Flu vaccine (# 1) [facility] [employer] Start: 01-21-2021 COVID-19 Vaccine (2 - Booster for Hipolito series) COVID-19 Vaccine (2 - Booster for Hipolito series) [facility] [employer] Start: 02-05-2013 Screening for malign ant neoplasm of cervix Pap smear [facility] [employer] Start: 02-05-2010 Hepatitis C screening Hepatitis C sc reen [facility] Start: 02-05-2007 HIV screening HIV screen [facility] [employer] Start: 2004 Depression Screen Depression Screen [facility] [employer] Start: 02-05-2002 Lipid panel Lipids [facility] [employer] Start: 02-05-1998 Pneumococcal 0-64 ye ars Vaccine (1 - PCV) Pneumococcal 0-64 years Vaccine (1 - PCV) [facility] Start: 02-05-1993 Varicella vaccine (1 of 2 - 2-dose childhood series) Varicella vaccine (1 of 2 - 2-dose childhood series) [facility] Bacteria identified in Unspecified specimen by Aerobe culture [facility] Bacteria identified in Unspecified specimen by Anaerobe culture [facility] End: 07-15-2022 COVID-19, Rapid COVID-19, Rapid Microbiology STAT One Time for 1 Occurrences starting 07/15/2022 until 07/15/2022 [facility] [employer] Phone: Comment on above: One Time for 1 Occur rences starting 07/15/2022 until 07/15/2022 CT CHEST PULMONARY EMBOLISM W CONTRAST CT CHEST PULMONARY EMBOLISM W CONTRAST Imaging STAT 07/15/2022 5:48 PM EDT [facility] [employer] the [employer] Phone: Culture, Strep B Scr een, Vaginal/Rectal Culture, Strep B Screen, Vaginal/Rectal Microbiology [employer] Label Print 07/20/2022 6:56 PM EDT [employer] Phone: EKG 12 Lead EKG 12 Lead ECG Routine 07/15/2022 4:23 AM EDT [employer] Phone: Glucose [Mass/volume ] in Serum or Plasma POCT glucose Point of Care Testing Routine 4X Daily (AC & HS) until discontinued starting 07/20/2022 [employer] Phone: Comment on above: 4X Daily (AC & HS) u ntil discontinued starting 07/20/2022 End: 07-15-2022 Hepatitis C Antibody [employer] Phone: Comment on above: One Time for 1 Occur rences starting 07/15/2022 until 07/15/2022 Meningitis+Encephali tis pathogens DNA and RNA panel - Cerebral spinal fluid by SARANYA with non-probe detection [facility] Microscopic observat ion [Identifier] in Unspecified specimen by Gram stain [facility] Nonrebreather mask oxygen Nonrebreather mask oxygen Respiratory Care Routine As directed - RT (PRN) until discontinued starting 07/15/2022 [employer] Phone: Comment on above: As directed - RT (DC N) until discontinued starting 07/15/2022 Oxygen therapy [[facility] Data Set] Initiate Oxygen Therapy Protocol Respiratory Care Routine Daily until discontinued starting 07/20/2022 [employer] Work Phone: Comment on above: Daily until disconti nued starting 07/20/2022 Patient Education [facility] Lumb ar Puncture Discharge Instructions [facility] Work Phone: PROFILE I PROF ILE I Lab [employer] Label Print 07/15/2022 4:12 PM EDT [employer] Phone: End: 06-28-2024 PSG Diagnostic [facility] Routine MOLINA (obstructive sleep apnea) 1 Occurrences starting 06/29/2023 until 06/28/2024 [employer] Work Phone: Comment on above: 1 Occurrences starti ng 06/29/2023 until 06/28/2024 End: 07-15-2022 RAPID INFLUENZA A/B ANTIGENS RAPID INFLUENZA A/B ANTIGENS Microbiology STAT One Time for 1 Occurrences starting 07/15/2022 until 07/15/2022 [employer] Phone: Comment on above: One Time for 1 Occur rences starting 07/15/2022 until 07/15/2022 End: 07-20-2022 Specimen hold [employer] Work Phone: Comment on above: Once for 1 Occurrenc es starting 07/20/2022 until 07/20/2022 End: 07-20-2022 Specimen to Pathology Specimen to Pathology Lab Routine One Time for 1 Occurrences starting 07/20/2022 until 07/20/2022 [employer] Phone: Comment on above: One Time for 1 Occur rences starting 07/20/2022 until 07/20/2022 Spirometry panel Incentive linda metry Respiratory Care Routine Every 2hr while awake until discontinued starting 07/20/2022 [employer] Phone: Comment on above: Every 2hr while awak e until discontinued starting 07/20/2022 End: 07-15-2022 Troponin I.cardiac [Mass/volume] in Serum or Plasma Troponin Lab STAT One Time for 1 Occurrences starting 07/15/2022 until 07/15/2022 [employer] Phone: Comment on above: One Time for 1 Occur rences starting 07/15/2022 until 07/15/2022 Immunizations Immunization Date Immunization Notes Care Provider Radha bowen 04-21-2014 influenza virus vaccine, unspecified formulation Katerin Haynes APRN-FIELD CONTROL INSPECTOR Work Phone: [facility] [facility] NEGATED: Highlighted row has not occurred!07-22-2022 tetanus toxoid, reduced diphtheria toxoid, and acellular pertussis vaccine, adsorbed Inge Galinaza DO Work Phone: [facility] Payers Date Payer Category Payer Unknown 2022 Unknown [id number] 2022 Medicaid [id number] 2022 Medicaid [employer] MED[employer] [facility] MEDICAID [id number] 2022-Present [address] [place] [address] 1.2.840.171853.1.13.424.2. 7.3.097535.315 1992 Unknown [id number] 2.16.840.1.228699.3.579.2. 647 1992 Unknown [id number] 2.16.840.1.533029.3.579.2. 593 1992 Unknown [id number] 2.16.840.1.645377.3.579.2. 593 1992 Unknown [id number] 2.16.840.1.890270.3.579.2. 593 1992 Unknown [id number] 2.16.840.1.474242.3.579.2. 593 1992 Unknown [id number] 2.16.840.1.593171.3.579.2. 593 1992 Unknown [id number] 2.16.840.1.044397.3.579.2. 593 1992 Unknown [id number] 2.16.840.1.844147.3.579.2. 593 1992 Unknown [id number] 2.16.840.1.421739.3.579.2. 593 1992 Unknown [id number] 2.16.840.1.055606.3.579.2. 593 1992 Unknown [id number] 2.16.840.1.005945.3.579.2. 593 1992 Unknown [id number] 2.16.840.1.640131.3.579.2. 593 1992 Unknown [id number] 2.16.840.1.645518.3.579.2. 593 1992 Unknown [id number] 2.16.840.1.242335.3.579.2. 593 1992 Unknown [id number] 2.16.840.1.364846.3.579.2. 593 1992 Unknown [id number] 2.16.840.1.822795.3.579.2. 593 1992 Unknown [id number] 2.16.840.1.318639.3.579.2. 593 1992 Unknown [id number] 2.16.840.1.782158.3.579.2. 593 1992 Unknown [id number] 2.16.840.1.556558.3.579.2. 593 1992 Unknown [id number] 2.16.840.1.022334.3.579.2. 593 1992 Unknown [id number] 2.16.840.1.268499.3.579.2. 593 1992 Unknown [id number] 2.16.840.1.910115.3.579.2. 593 1992 Unknown [id number] 2.16.840.1.874566.3.579.2. 593 1992 Unknown [id number] 2.16.840.1.313660.3.579.2. 593 1992 Unknown [id number] 2.16.840.1.440568.3.579.2. 593 1992 Unknown [id number] 2.16.840.1.424104.3.579.2. 593 1992 Unknown [id number] 2.16.840.1.675798.3.579.2. 593 1992 Unknown [id number] 2.16.840.1.277630.3.579.2. 593 1992 Unknown [id number] 2.16.840.1.761950.3.579.2. 593 1992 Unknown [id number] 2.16.840.1.927007.3.579.2. 593 1992 Unknown [id number] 2.16.840.1.404021.3.579.2. 593 1992 Unknown [id number] 2.16.840.1.492953.3.579.2. 593 1992 Unknown [id number] 2.16.840.1.106633.3.579.2. 593 1992 Unknown [id number] 2.16.840.1.803176.3.579.2. 593 1992 Unknown [id number] 2.16.840.1.103936.3.579.2. 593 1992 Unknown [id number] 2.16.840.1.879684.3.579.2. 593 1992 Unknown [id number] 2.16.840.1.752978.3.579.2. 593 1992 Unknown [id number] 2.16.840.1.964039.3.579.2. 593 1992 Unknown [id number] 2.16.840.1.459099.3.579.2. 593 1992 Unknown [id number] 2.16.840.1.599377.3.579.2. 593 1992 Unknown [id number] 2.16.840.1.439145.3.579.2. 593 1992 Unknown [id number] 2.16.840.1.475600.3.579.2. 1286 1992 Unknown [id number] 2.16.840.1.484381.3.579.2. 1286 1992 Unknown [id number] 2.16.840.1.480172.3.579.2. 1286 1992 Unknown [id number] 2.16.840.1.776996.3.579.2. 128 1992 Unknown [id number] 2.16.840.1.093360.3.579.2. 128 1992 Unknown [id number] 2.16.840.1.654786.3.579.2. 128 1992 Unknown [id number] 2.16.840.1.923837.3.579.2. 128 1992 Unknown [id number] 2..840.1.397440.3.579.2. 128 1992 Unknown [id number] 2..840.1.367151.3.579.2. 1285 1992 Unknown [id number] 2..840.1.644076.3.579.2. 9 1992 Unknown [id number] 2..840.1.983264.3.579.2. 1258 1992 Unknown [id number] 2..840.1.474359.3.579.2. 9 1992 Unknown [id number] 2.16.840.1.253770.3.579.2. 1258 1992 Unknown [id number] 2.16.840.1.308451.3.579.2. 1259 1992 Unknown [id number] 2.16.840.1.273811.3.579.2. 1258 1992 Unknown [id number] 2.16.840.1.599800.3.579.2. 1258 1992 Unknown [id number] 2.16.840.1.216652.3.579.2. 1259 1992 Unknown [id number] 2.16.840.1.455503.3.579.2. 125 1992 Unknown [id number] 2.16.840.1.352316.3.579.2. 1259 1992 Unknown [id number] 2.16.840.1.740746.3.579.2. 1259 1992 Unknown [id number] 2.16.840.1.838170.3.579.2. 1259 1992 Unknown [id number] 2.16.840.1.641727.3.579.2. 1259 1992 Unknown [id number] 2.16.840.1.553929.3.579.2. 175 1992 Unknown [id number] 2.16.840.1.674390.3.579.2. 175 1992 Unknown [id number] 2.16.840.1.890842.3.579.2. 175 1992 Unknown [id number] 2.16.840.1.885283.3.579.2. 175 1959 Medicaid [id number] 1.2.840.697954.1.13.239.2. 7.3.607059.315 1959 Private Health Insurance [id number] 1.2.840.087079.1.13.239.2. 7.3.576469.315 1959 Self-pay 1959 Unknown [id number] 1959 Worker's Compensation [id number] 2.840.1.843430.19 Medicaid [place] Advantage [id number] Private Health Insurance [id number] .840.1.453164.19 Private Health Insurance [facility] [id number] Unknown [id number] 06.08.830.1.210280.19 Unknown [id number] 2.840.1.204239.3.579.2. 593 Unknown [id number] 2.16.840.1.387486.3.579.2. 531 Unknown [id number] 2.16.840.1.482510.3.579.2. 531 Social History Date Type Detail Facility Unknown if ever smoked [place] [employer] Other Start: 06-03-2020 End: 05-03-2023 Sex Assigned At [facility] Other Start: 06-22-2022 End: 06-29-2023 Tobacco smoking status VTIS Ex-smoker [facility] Start: 05-25-2020 End: 12-22-2022 History of tobacco use Current smoker [employer] Phone: End: 11-20-2017 History of tobacco use Cigarette Smoker [employer] Phone: Start: 06-22-2022 End: 06-29-2023 Tobacco use and exposure Smokeless tobacco non-user [employer] Phone: Start: 06-29-2022 End: 06-29-2023 Alcohol intake Ex-drinker (finding) [employer] Phone: Start: 06-22-2022 Tobacco Comment Quit in 201806/22/2022 [employer] Phone: Start: 11-20-2021 [employer] Phone: Start: 1990 Sex Assigned At Female [facility] Start: 07-10-2022 End: 07-20-2022 Exposure to SARS-CoV-2 (event) Not sure [employer] Phone: Start: 06-03-2020 End: 11-16-2022 Cigarettes smoked current (pack per day) - Reported 0.5 [facility] Adolescent depressio n screening assessment [facility] Start: 11-30-2021 Education 17 [facility] Start: 11-16-2022 Tobacco Comment quit in July [facility] Start: 05-16-2022 Gender identity Identifies as female gender (finding) [facility] Start: 05-25-2022 Sexual orientation Heterosexual (finding) [facility] Medical Equipment Procedure Code Equipment Code Equipment Origin al Text Equipment Identifier Dates BD ULTRA-FINE PE N NEEDLES 29G X 12.7MM [facility] [place] [place] [id number] Start: 04-03-2022 ONETOUCH ULTRA strip [id number] Star t: 06-11-2022 DROPLET PEN NEED LES 29G X 12MM [facility] [id number] Start: 06-30-2022 Clinical Notes 01-28-2020 to 07-02-2023 Telephone Encounter - Christine Valladares - 07/02/2023 9:14 AM EDTTelephone Encounter - Christine Valladares - 07/02/2023 9:14 AM EDTSVANESA Krause - 06/29/2023 11:00 AM ESTPatient Instructions Note Date & Type Note Facility 07-02-2023 Miscellaneous Notes Formattin g of this note is different from the original. 06/28 order received Scheduled [facility] at [facility] on 10/23/23 Mychart confirmation [place] [employer] PSG order & 6 Salome notes in Epic With TCO2 monitoring. Please obtain baseline in supine position. documented in this encounter [facility] 07-02-2023 Telephone encount er Note 06/28 order received Scheduled [facility] at [facility] on 10/[facility]/23 Mychart confirmation [place] [employer] PSG order & 3/6 [place] notes in Epic With TCO2 monitoring. Please obtain baseline in supine position. [facility] 06-29-2023 History of Presen t illness Narrative [...] you wake up? 6-8 AM Number of ijjirv-lb-nqc-night awakenings per night? 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 [...] sleep). CC: MD Lindsey CAMEJO [facility] Office: [phone] 11:18 AM on 06/29/2023 This note is dictated with the use of M*Modal.Please note that this dictation was completed with computer voice recognition software. Quite often unanticipated grammatical, syntax, homophones, and other interpretive errors are inadvertently transcribed by the computer software. Please disregard these errors. Please excuse any errors that have escaped final proofreading. VANESA Mendez 06/29/23 1125 documented in this encounter [facility] 06-29-2023 Instructions VANESA Mendez - 06/29/2023 11:00 AM EST If you re looking for general health and wellness resources, please visit [email or web address] documented in this encounter [facility] 06-29-2023 Evaluation note Diagnosis MOLINA (obstructive sleep apnea)- Primary Obstructive sleep apnea (adult) (pediatric) Morning headache Memory loss Fatigue, unspecified type Snoring Other dyspnea and respiratory abnormality documented in this encounter [facility]2024 Miscellaneous Notes* Telephone Encounter - Ernestina Simpson - 05/29/2023 10:23 AM EST Pt called to schedule a sleep study or appointment with pulaquiles Dawn advised we have nothing as of now and either order is in her chart to schedule with gave her the number to sleep medicine in [place] [facility] Tele[facility] encounter Note* Telephone Encounter - Ernestina Simpson - 05/29/2023 10:23 AM EST Pt called to schedule a sleep study or appointment with collin Dawn advised we have nothing as of now and either order is in her chart to schedule with gave her the number to sleep medicine in [place] [facility]01-11-2024 History of Present illness Narrative* VANESA Frank - 05/03/2023 1:15 PM EST Images from the original note were not included. [address] [facility] [address] SUBJECTIVE: Patient ID: Yani Stevens is a [...] 1 tablet daily for 4 days.. Follow-up: [facility]pack Follow up with routine visits Patient noted to have elevated BMI and the following intervention(s) were applied: encouragement toexercise. VANESA Frank 05/03/23 1330 documented in this encounterWVUMedicine [facility] [id number] Evaluation note* Encounter Date Diagnosis Assessment Notes [...] not specified, unspecified location (ICD-10 - J01.90) [facility] Other 04-01-2023 History of Present illness Narrative* Diann Diaz, - 07/22/2022 12:40 AM EDT POST OPERATIVE [...] patient Attending Physician: Dr. Fish Estrada MD Stack Attendant Resident 07/22/2022, 12:40 AM Attending Physician Statement [...] patient Attending Physician: Dr. Betina Bush, DO Stack Attendant Resident 07/21/2022, 3:02 AM Attending Physician Statement [...] MD 07/21/2022 10:00 AM [facility]: 1(529) 756-735703-30-2023 Evaluation note* Diagnosis RLTCS w/ IUD 07/20/22 [...] Chronic hypertension affecting documented in this encounter [facility] [employer] Phone: 1(975) 136-803503-28-2023 Evaluation note* Encounter Date Diagnosis Assessment Notes [...] other viral communicable diseases (ICD-10 - Z20.828) [facility] Other 11-29-2022 Evaluation note* Encounter Date Diagnosis [...] off of work. We will apply for [facility] approval for therapy. [facility] Other 06-21-2021 NoteEducation Materials Obstetrics and Gynecology [...] Follow these instructions at home: ? Take lyko-pht-abfhuxr and prescription medicines only as told by [...] menstrual period is much (more content not included)...[facility] 01-28-2020 NoteOphthalmology Basics of Medication Management UNDERSTAND [...] caregiver questions about your prescriptions and any euoa-zfw-wmkdbjc medications, vitamins, herbal or dietary supplements that [...] If you are taking care of an or child who needs multiple medications, follow the tips above to organize a medication schedule and safely give and store medications. ?? ? Use positive reinforcement (singing, cuddling, reward) for your child to help him or her take necessary medications. ? Use only syringes, droppers, dosing spoons, or dosing cups provided by your caregiver or pharm (more content not included)...[facility] Chief complaint+Reason for visit Narrative* Chief Complaint Congestion, fever Reason for Visit Contact with and (grimm spected) exposure to covid-19 [facility] Work Phone: Evaluation note* Diagnosis 35 weeks [...] condition or complication documented in this encounter [facility] Work Phone: evaluation noteNo assessment information available [facility] Work Phone: Evaluation note* Diagnosis Acute non-recurrent maxillary sinusitis- [facility] Diagnosis Low back pain, unspecified back pain laterality, unspecified chronicity, unspecified whether sciatica present- Primary [facility] Diagnosis Onset Date Resolution Status Contact with and (suspected) exposure to covid-19 noneactive [facility] Work Phone: History general Narrative - Reported* Type Description Date Medical History Depression Medical History Bipolar disorder Medical History Hypertension Medical History Hypothyroidism Surgical History cholecystectomy Surgical History wisdom teeth extract Surgical History lipoma removed Surgical History left knee scope x 2 Surgical History hemorrhoidectomy Hospitalization History see above surgical histo ry [facility] [employer] Other Hospital Discharge instructions* Attachments The following attachments cannot be sent through Care Everywhere. * Section: Post-op (Bruneian) * Preeclampsia: : General Info (Bruneian) * Depression: (Bruneian) [facility] Work [facility]: Instructions* Attachments The following attachments cannot be sent through Care Everywhere. * Sinusitis in adults (Bruneian) documented in this encounterProOur [facility] AndersonFirst Look Media SystemInstructionsNot on file documented in this encounterProOur Lady Of [facility] AndersonFirst Look Media SystemInstructionsNot on file documented in this encounterProOur Lady [facility] AndersonFirst Look Media SystemInstructionsNot on file documented in this encounterProOur Lady [facility] AndersonFirst Look Media SystemInstructionsNot on file documented in this encounterWVUMedicine Harrison [facility] HospitalFirst Look [facility] System Summary Purpose Family History No Family [...] Referral Specialty Diagnoses / Procedures Referred By Ismael t Referred To Contact Diagnoses MOLINA (obstructive sleep apnea) Procedures PSG Diagnostic Lindsey Mcmahon, MILITARY ADMINISTRATIVE TECHNICIAN-FIELD CONTROL INSPECTOR [address] [facility], [address] [address] Referral ID Status Reason Start Date Expiration Date V isits Requested Visits Authorized [id number] Pending Review 06/29/2023 06/28/2024 1 1 Additional Source Comments INFORMATION SOURCE (unrecogn ized section and content) DATE CREATED AUTHOR 02/27/2018 [facility] DATE CREATED AUTHOR AUTHOR'S ORGANIZ ATION 09/15/2020 [facility] DATE CREATED AUTHOR AUTHOR'S ORGANIZ ATION 10/17/2020 [facility] DATE CREATED AUTHOR AUTHOR'S ORGANIZ ATION 08/25/2022 [facility] DATE CREATED AUTHOR AUTHOR'S ORGANIZ ATION 01/01/2023 [facility] DATE CREATED AUTHOR AUTHOR'S ORGANIZ ATION 06/30/2023 [facility] DATE CREATED AUTHOR AUTHOR'S ORGANIZ ATION 12/31/2023 [facility] DATE CREATED AUTHOR AUTHOR'S ORGANIZ ATION 01/05/2024 [facility] DATE CREATED AUTHOR AUTHOR'S ORGANIZ ATION 01/05/2024 [facility] REASON FOR VISIT (unrecogniz ed section and content) Specialty Diagnoses / Procedures Referred By Ismael landis Referred To Contact Diagnoses 36 weeks gestation of Hitesh Holloway, DO [address] [place] [address] [facility] [id number] [place] [address] Referral ID Status Reason Start Date Expiration Date Visits Re quested Visits Authorized [id number] 1 1 Reason Comments Nasal Congestion Dizziness Reason Onset Date Comments Sleep Lab 05/29/2023 Reason Comments Med Refill Reason Comments New Patient Sleep ConsultNo prio r sleep studyNot on PAP Specialty Diagnoses / Procedures Referred By Ismael landis Referred To Contact Pulmonary Medicine Diagnoses Morning headache Memory loss Razia Muller, MILITARY ADMINISTRATIVE TECHNICIAN-FIELD CONTROL INSPECTOR [address] [place] [address] sp Pulm Sleep Med [facility] [place] [address] Referral ID Status Reason Start Date Expiration Date Visits Requested Visits Authorized [id number] Pending Review Specialty Services Required 06/12/2023 06/11/2024 [...] (Given - Provider: Stephany Paige APRN - SOAP DRIER TENDER) citalopram (CELEXA) tablet 20 mg 20 mg, Oral, DAILY, First dose (after last modification) on Sun07/21/22 at 0900, Until Discontinued 08 (Given - Provider: Lakesha Loera RN) 08 (Given - Provider: Lakesha Loera RN) citric [...] Anel Easley RN - Comment: Fermin Rhodes RN)171 (Stopped - Provider: Dasha Rhodes RN) docusate sodium (COLACE) capsule 100 mg 100 mg, Oral, 2 TIMES DAILY, First dose on [place] 07/20/22 at 2100, Until Discontinued, Do not crush or break., 1999 (Not Given - Provider: Namita Ge RN - Reason: Nausea) 08 (Given - Provider: Lakesha Loera RN)2219 (Given - Provider: Jennifer Porras) 08 (Given [...] procedure., 08 (Given - Provider: Lakesha Loera RN)2220 (Given - Provider: Jennifer Porras) 08 (Given [...] Dasha Rhodes RN)1820 (Stopped - Provider: Dasha Rhodes RN) ibuprofen [...] not administer for more than 5 days., 2223 (Given - Provider: Elisa Mckeon RN) 0517 (Given - Provider: Elisa Mckeon RN)1125 (Given - Provider: Lakesha Loera RN) labetalol (NORMODYNE) tablet 200 mg (CANCELED) 200 mg, Oral, 2 times daily, First dose on Sun07/20/22 at 2100, Until Discontinued 213 (Given - Provider: Namita Ge RN) labetalol [...] 1 each, IntraUTERine, ONCE, 1 dose, On Sun07/20/22 at 1600 1835 (Given by Other - Provider: Dasha Rhodes RN) levothyroxine (SYNTHROID) tablet 50 mcg 50 mcg, Oral, DAILY, First dose (after last modification) on Sun07/21/22 at 0700, Until Discontinued, Tube feeding (TF) interaction, obtain physician order to manage, recommend holding TF for 30 minutes before and after dose., 08 (Given - Provider: Lakesha Loera RN) 0830 [...] Provider: Namita Ge RN - Reason: Nausea) 08 (Given - Provider: Lakesha Loera RN) 0831 [...] Fluid Infusing) 1125 (Given - Provider: Lakesha Loera RN)2221 (Given - Provider: Jennifer Porras) 0836 (Not [...] (NoRateChange - Provider: Stephany Paige APRN - SOAP DRIER TENDER)1829 (Paused - Provider: Agata Pollard, VIKTORIA - Comment: Switch to gravity)1830 (New Bag - Provider: Agata Pollard, RN)1927 (New Bag - Provider: Agata Pollard RN) PRN Medication Order 07/20/2022 07/21/2022 07/22/2022 0.9 % sodium chloride infusion IntraVENous, at 5-250 mL/hr, PRN, if patient receiving piggyback infusions and maintenance fluids are not ordered OR KVO fluids to protect IV site / prevent frequent line interruptions/ long duration, Starting on Sun07/20/22 at 1933, For piggyback infusion, administer at [...] Sun07/20/22 at 1933, Until Discontinued, Itching, Hives, Lanolin [...] Provider: Jennifer Porras)1135 (Given - Provider: Lakesha Loera RN) oxyCODONE (ROXICODONE) immediate release tablet 5 mg(Linked Group 1) 5 mg, Oral, EVERY 4 HOURS PRN, Starting on [place] 07/20/22 at 1933, Until Discontinued, Pain Moderate (4-6), 1806 (Given - Provider: Lakesha Loera RN)2221 (Given - Provider: Jennifer Porras) 0225 (See [...] December 17, 2023 End: December 17, 2023 Nailhead Operator Relationship Specialty Start Date End Date Chas Balderas MD [address] [place] [address] PCP - General Family Medicine 06/29/23 Nailhead Operator Relationship Specialty Start Date End Date Katerin Haynes APRN-FIELD CONTROL INSPECTOR [address] [place] [address] PCP - General Family Medicine 11/23/22 Team Status: Active Member Role Status Armond Villalobos MD Primary Care Provider Active Team Status: Inactive Member Role Status Dates Aline Villalobos MD Primary Care Provider Active Razia Muller , MILITARY ADMINISTRATIVE TECHNICIAN-DRUM TESTER-C Attending Provider Active Goals (unrecognized section and [...] BE BASED ON THE PRIMARY CLINICAL RECORDS. [employer] provides no warranty or guarantee of the accuracy or completeness of information in this document.
[2024-01-07 08:08] VITALS: BP 120/74; PULSE 78
== END 2024-01-07 09:00 | disposition home or self-care (01) ==
LOC: US 06:58 → FBC 07:33
PROVIDERS: PCP Family Medicine; Visit Provider Obstetrics & Gynecology
DX: O24.419 Gestational diabetes mellitus in pregnancy, unspecified control (principal); E03.9 Hypothyroidism, unspecified; Z98.891 History of uterine scar from previous surgery; Z3A.32 32 weeks gestation of pregnancy
CPT/HCPCS: 76816; 76818; 76820

== ENCOUNTER 2024-01-10 07:00 | Outpatient (OUT) | payer BC, MEDICAID, SELFPAY ==
--- OUTSIDE RECORDS SUMMARY | 2024-01-10 07:05 | XMS_ITS | CCD ---
Author Organization [facility] Care Team Providers Care Geriatric Social Worker Name Role Phone PHYSICIAN, DEFAULT Unavailable Unavailable [...] Care Unavailable NICHOLAS, DR ZAMORA Admitting Unavailable NICOHLAS, DR ZAMORA Attending Unavailable NICHOLAS, DR ZAMORA [...] NADERER, DR CHAS Norman Primary Care Unavailable [place], DR ALINE Henriquez Consulting Unavailable NICHOLAS, DR [...] CHAS Norman Primary Care Unavailable ZIEBER, DR EGRARD Adame Consulting Unavailable NICHOLAS, DR ZAMORA Admitting [...] Unavailable MD Aline Villalobos Primary Care Provider [phone] TONJA Muller Attending Provider Aline Villalobos Primary Care Unavailable Razia Muller Admitting Unavailable Razia Muller Attending Unavailable Aline Villalobos Primary Care Unavailable Razia Muller Admitting Unavailable Razia Muller Attending Unavailable Jovita Murcia Unavailable Schlachter GLASS BLOCK BENDER-DIRECTOR OF DIRECT MARKETING, Katerin Primary Care Provide r Schalchter GLASS BLOCK BENDER-DIRECTOR OF DIRECT MARKETING, Katerin Primary Care Provide r Chas Balderas MD Primary Care Provider [phone] LINDSEY MCMAHON Attending Unavailable MULLER, RAZIA Referring [...] PERNI, MATEO C Referring Unavailable NADERER, CHAS NASSAU Primary Care Unavailabl e PERNI, MATEO C Referring Unavailable NADERER, [facility] Primary Care Unavailabl e PERNI, MATEO C Referring Unavailable NADERER, [facility] Primary Care UnavailCLAUDIA Walker Admitting Unavailable CLAUDIA VILLAR Attending Unavailable NADERER, [facility] Primary Care Unavailabl e Allergies Allergy Classification Reported Allergen(s) Allergy Type Date of Onset Reaction(s) Facility (20 sources) Amoxicillin; Translations: [Amoxicillin] Drug Allergy 11-08-18 96 Anaphylaxis, shortness of breath [facility] (18 sources) Morphine; Translations: [MORPHINE] Drug Allergy 09-18-19 18 hives, Rash [facility] Other (16 sources) Codeine; Translations: [CODEINE] Drug Allergy 06-06-19 23 [facility] (13 sources) Penicillins; Translations: [PENICILLINS] Propensity to adverse reactions to drug 02-22-20 16 Anaphylaxis, Shortness Of Breath [facility] Work Phone: (1 source) Codeine Drug Allergy 07-30-19 22 [facility] (1 source) Morphine Drug Allergy [facility] (1 source) Codeine Drug Allergy 12-23-19 23 [facility] Repository (1 source) Morphine Drug Allergy 05-25-19 21 [facility] (1 source) Pseudoephedrine Drug Allergy 02-22-20 22 Unknown [facility] Other (1 source) Allergies Reconciled Propensity to adverse reactions 02-28-20 Unknown [facility] Other (1 source) Substance with penicillin structure and antibacterial mechanism of action (substance) Drug allergy 02-28-20 Unknown [facility] Other (1 source) Morphine Sulfate (Concentrate) *ANALGESICS - OPIOI Propensity to adverse reactions 02-28-20 Unknown [facility] Other (9 sources) Doxycycline; Translations: [DOXYCYCLINE] Drug Allergy 02-08-20 23 [employer] (1 source) 12 Hour Decongestant Allergy to substance 12-17-19 Unknown Reaction [facility] Medications Current Medications Medication Drug Class(es) [...] as needed Orally every 6 hrs Active [id number] 200 actuat albuterol 0.09 mg/actuat metered dose [...] 06-20-2022 PROFE 391.3 (180 Fe) MG CAPS [id number] Acid (1 source) Start: 12-17-2023 take 1 tablet by mouth once daily [id number]-[id number] Acid Active 1 TAB PO Daily December [...] Orally once a d ay Active levonorgestrel 0.783916 mg/hr intrauterine system (3 sources) Progestin, Progestin-containing [...] tablet 0 11/16/2017 Active polyethylene glycol 3350 77007 mg powder for oral solution (3 sources) [...] Onset: 05-26-2022 Episodic Other aftercare (1 source) [facility] (current) use of insulin; Translations: [SHELTER CURRENT USE OF INSULIN] Onset: 07-14-2022 Episodic [...] Ampon 12-31 Chlamydia Probe Negative Normal NEG [facility] Comment on above: Result Comment: CHLA MYDIA [...] PROSAC, HOCYS, GLYHGB, TSH, LUPPRO, FT4 #### [facility] [address] [place] [id number] Adult School Counselor: Gideon Blulock MD #### AAFPM #### [facility] [address] [place] [address] [phone] Adult School Counselor: Gideon Bullock MD [address] [address] Adult School Counselor: Fantasma Wood MD #### AF5MUT, AMTHFR, APTMUT #### [facility] [address] [place], [place] [phone] Adult School Counselor: Fantasma Wood MD Gonorrhea Probe Negative Normal NEG [facility] Comment on above: Result Comment: NEIS SERIA [...] PROSAC, HOCYS, GLYHGB, TSH, LUPPRO, FT4 #### [place] [address] Adult School Counselor: Gideon Bullock MD #### AAFPM #### [place] [address] Adult School Counselor: Gideon Bullock MD [address] [phone] Adult School Counselor: Fantasma Wood MD #### AF5MUT, AMTHFR, APTMUT #### [facility] [address] [place] [address] Adult School Counselor: Fantasma Wood MD CBC with Diffon 12-31-2023 Abs. Basophil 0.03 k/uL Normal 0.00-0.[address] [facility] Comment on above: Performed By: #### U VIVIEN URTPRT #### [facility] [employer] [address] [place] [address] Adult School Counselor: Gideon Bullock MD Abs.Imm.Granulocyte 0.04 k/uL Normal 0.00-0.[address] [facility] Comment on above: Performed By: #### U VIVIEN URTPRT #### [address] [address] Adult School Counselor: Gideon Bullock MD Abs.Neutrophil (Seg) 5.25 k/uL Normal 1.50-8.10 [facility] Comment on above: Performed By: #### U AMIC, URTPRT #### [address] [address] Adult School Counselor: Gideon Bullock MD Basophils/100 WBC (Bld) 0 % Normal 0-[address] [facility] Comment on above: Performed By: #### U AMIC, URTPRT #### [address] [address] Adult School Counselor: Gideon Bullock MD Eosinophils (Bld) [#/Vol] 0.18 10*3/uL Normal 0.00-0.[address] [facility] Comment on above: Performed By: #### U AMIC, URTPRT #### [address] [address] Adult School Counselor: Gideon Bullock MD Eosinophils/100 WBC (Bld) 2 % Normal 1-[address] [facility] Comment on above: Performed By: #### U AMIC, URTPRT #### [address] [address] Adult School Counselor: Gideon Bullock MD Erythrocyte distribution width (RBC) [Ratio] 13.1 % Normal 11.8-14.[address] [facility] Comment on above: Performed By: #### U AMIC, URTPRT #### [address] [address] Adult School Counselor: Gideon Bullock MD Hematocrit (Bld) [Volume fraction] 35.1 % Low 36.3-47.[address] [facility] Comment on above: Performed By: #### U AMIC, URTPRT #### [address] [address] Adult School Counselor: Gideon Bullock MD Hemoglobin (Bld) [Mass/Vol] 11.9 g/dL Normal 11.9-15.[address] [facility] Comment on above: Performed By: #### U AMIC, URTPRT #### [address] [address] Adult School Counselor: Gideon Bullock MD Immature granulocytes/100 WBC (Bld) 1 % High [address] [facility] Comment on above: Performed By: #### U AMIC, URTPRT #### [address] [address] Adult School Counselor: Gideon Bullock MD Lymphocytes (Bld) [#/Vol] 1.81 10*3/uL Normal 1.10-3.[address] [facility] Comment on above: Performed By: #### U AMIC, URTPRT #### [address] [address] Adult School Counselor: Gideon Bullock MD Lymphocytes/100 WBC (Bld) 23 % Low 24-[address] [facility] Comment on above: Performed By: #### U AMIC, URTPRT #### [address] [address] Adult School Counselor: Gideon Bullock MD MCH (RBC) [Entitic mass] 28.9 pg Normal 25.2-33.[address] [facility] Comment on above: Performed By: #### U AMIC, URTPRT #### [address] [address] Adult School Counselor: Gideon Bullock MD MCHC (RBC) [Mass/Vol] 33.9 g/dL Normal 28.4-34.8 [facility] Comment on above: Performed By: #### U AMIC, URTPRT #### [address] [address] Adult School Counselor: Gideon Bullock MD MCV (RBC) [Entitic vol] 85.2 fL Normal 82.6-102.[address] [facility] Comment on above: Performed By: #### U AMIC, URTPRT #### [address] [address] Adult School Counselor: Gideon Bullock MD Monocytes (Bld) [#/Vol] 0.62 10*3/uL Normal 0.10-1.[address] [facility] Comment on above: Performed By: #### U AMIC, URTPRT #### [address] [address] Adult School Counselor: Gideon Bullock MD Monocytes/100 WBC (Bld) 8 % Normal 3-[address] [facility] Comment on above: Performed By: #### U AMIC, URTPRT #### [address] [address] Adult School Counselor: Gideon Bullock MD Neutrophil (Seg) 66 % High 36-65 [facility] Comment on above: Performed By: #### U AMIC, URTPRT #### [address] [address] Adult School Counselor: Gideon Bullock MD NRBC Automated 0.0 per 100 WBC Normal 0.[address] [facility] Comment on above: Performed By: #### U AMIC, URTPRT #### [address] [address] Adult School Counselor: Gideon Bullock MD Platelet mean volume (Bld) [Entitic vol] 10.9 fL Normal 8.1-13.[address] [facility] Comment on above: Performed By: #### U AMIC, URTPRT #### [facility] [employer] [address] [place] [address] Adult School Counselor: Gideon Bullock MD Platelets (Bld) [#/Vol] 175 10*3/uL Normal 138-[address] [facility] Comment on above: Performed By: #### U AMIC, URTPRT #### [facility] [address] [place] [address] Adult School Counselor: Gideon Bullock MD RBC (Bld) [#/Vol] 4.12 10*6/uL Normal 3.95-5.[address] [facility] Comment on above: Performed By: #### U AMIC, URTPRT #### [facility] [address] [place] [address] Adult School Counselor: Gideon Bullock MD WBC (Bld) [#/Vol] 7.9 10*3/uL Normal 3.5-11.[address] [facility] Comment on above: Performed By: #### U AMIC, URTPRT #### [facility] [address] [place] [address] Adult School Counselor: Gideon Bullock MD Comp Metabolic Profon 2023 Albumin [Mass/Vol] 3.7 g/dL Normal 3.5-5.[address] [facility] Comment on above: Performed By: #### U AMIC, URTPRT #### [facility] [address] [place] [address] Adult School Counselor: Gideon Bullock MD Albumin/Glob Ratio 1.0 Normal 1.0-2.[address] [facility] Comment on above: Performed By: #### U AMIC, URTPRT #### [facility] [employer] [place] [address] Adult School Counselor: Gideon Bullock MD Alkaline Phos 105 U/L High 35-[address] [facility] Comment on above: Performed By: #### U AMIC, URTPRT #### [facility] [address] [place] [address] Adult School Counselor: Gideon Bullock MD ALT [Catalytic activity/Vol] 18 U/L Normal 10-[address] [facility] Comment on above: Performed By: #### U AMIC, URTPRT #### [address] [address] Adult School Counselor: Gideon Bullock MD Anion gap [Moles/Vol] 10 mmol/L Normal 9-16 [facility] Comment on above: Performed By: #### U AMIC, URTPRT #### [address] [address] Adult School Counselor: Gideon Bullock MD AST [Catalytic activity/Vol] 16 U/L Normal 10-[address] [facility] Comment on above: Performed By: #### U AMIC, URTPRT #### [address] [address] Adult School Counselor: Gideon Bullock MD Bilirubin [Mass/Vol] 0.2 mg/dL Normal 0.00-1.20 [facility] Comment on above: Performed By: #### U AMIC, URTPRT #### [address] [address] Adult School Counselor: Gideon Bullock MD Calcium [Mass/Vol] 9.0 mg/dL Normal 8.6-10.[address] [facility] Comment on above: Performed By: #### U AMIC, URTPRT #### [address] [address] Adult School Counselor: Gideon Bullock MD Chloride [Moles/Vol] 106 mmol/L Normal 98-107 [facility] Comment on above: Performed By: #### U AMIC, URTPRT #### [facility] [address] [place] [address] Adult School Counselor: Gideon Bullock MD CO2 [Moles/Vol] 21 mmol/L Normal 20-[address] [facility] Comment on above: Performed By: #### U AMIC, URTPRT #### [facility] [address] [place] [address] Adult School Counselor: Gideon Bullock MD Creatinine [Mass/Vol] 0.4 mg/dL Low 0.50-0.90 [facility] Comment on above: Performed By: #### U AMIC, URTPRT #### [address] [address] Adult School Counselor: Gideon Bullock MD GFR/1.73 sq M.predicted among non-blacks MDRD (S/P/Bld) [Vol rate/Area] mL/min/{1.73_m2} Normal >[address] [facility] Comment on above: Result Comment: These results [...] Performed By: #### U AMIC URTPRT #### [facility] [address] [place] [address] Adult School Counselor: Gideon Bullock MD Glucose [Mass/Vol] 74 mg/dL Normal 74-[address] [facility] Comment on above: Performed By: #### U AMIC, URTPRT #### [facility] [address] [place] [address] Adult School Counselor: Gideon Bullock MD Potassium [Moles/Vol] 3.9 mmol/L Normal 3.7-5.3 [facility] Comment on above: Performed By: #### U AMIC, URTPRT #### [facility] [address] [place] [address] Adult School Counselor: Gideon Bullock MD Protein [Mass/Vol] 6.9 g/dL Normal 6.6-8.[address] [facility] Comment on above: Performed By: #### U AMIC, URTPRT #### [address] [address] Adult School Counselor: Gideon Bullock MD Sodium [Moles/Vol] 137 mmol/L Normal 136-[address] [facility] Comment on above: Performed By: #### U AMIC, URTPRT #### [address] [address] Adult School Counselor: Gideon Bullock MD Urea nitrogen [Mass/Vol] 9 mg/dL Normal 6-[address] [facility] Comment on above: Performed By: #### U AMIC, URTPRT #### [address] [address] Adult School Counselor: Gideon Bullock MD Protein,Tot,[place] Uron 2023 Creatinine [Mass/Vol] 123.0 mg/dL Normal 28.0-217.0 [facility] Comment on above: Performed By: #### U AMIC, URTPRT #### [address] [address] Adult School Counselor: Gideon Bullock MD Tot Prot. Conc. 14 mg/dL Normal [facility] Comment on above: Result Comment: No n ormal range established. Performed By: #### U AMIC, URTPRT #### [address] [address] Adult School Counselor: Gideon Bullock MD TP/Cre Ratio 0.[address] [facility] Comment on above: Performed By: #### U AMIC, URTPRT #### [address] [address] Adult School Counselor: Gideon Bullock MD Urinalysis w/ Microon 2023 Bacteria None Normal NONE [facility] Comment on above: Performed By: #### U AMIC, URTPRT #### [address] [address] Adult School Counselor: Gideon Bullock MD Bilirubin, SemiQt,Ur Negative Normal NEG [facility] Comment on above: Performed By: #### U AMIC, URTPRT #### [address] [address] Adult School Counselor: Gideon Bullock MD Blood, Urine MODERATE Abnormal NEG [facility] Comment on above: Performed By: #### U AMIC, URTPRT #### [address] [address] Adult School Counselor: Gideon Bullock MD Casts 0 TO 2 HYALINE Normal 0-[address] [facility] Comment on above: Result Comment: Refe rence range defined for non-centrifuged specimen. Performed By: #### U AMIC, URTPRT #### [address] [address] Adult School Counselor: Gideon Bullock MD Clarity (U) Clear Normal CLEAR [facility] Comment on above: Performed By: #### U AMIC, URTPRT #### [address] [address] Adult School Counselor: Gideon Bullock MD Color (U) Yellow Normal YEL [facility] Comment on above: Performed By: #### U AMIC, URTPRT #### [address] [address] Adult School Counselor: Gideon Bullock MD Epithelial cells LM Ql (Urine sed) 5 TO 10 Normal 0-[address] [facility] Comment on above: Performed By: #### U AMIC, URTPRT #### [address] [address] Adult School Counselor: Gideon Bullock MD Glucose Ql (U) Negative Normal NEG [facility] Comment on above: Performed By: #### U AMIC, URTPRT #### [address] [address] Adult School Counselor: Gideon Bullock MD Ketones Ql (U) Negative Normal NEG [facility] Comment on above: Performed By: #### U AMIC, URTPRT #### [address] [address] Adult School Counselor: Gideon Bullock MD Leukocyte esterase Test strip Ql (U) TRACE Abnormal NEG [facility] Comment on above: Performed By: #### U AMIC, URTPRT #### [address] [address] Adult School Counselor: Gideon Bullock MD Nitrite,Ur Negative Normal NEG [facility] Comment on above: Performed By: #### U AMIC, URTPRT #### [address] [address] Adult School Counselor: Gideon Bullock MD PH,Ur 6.0 Normal 5.0-8.[address] [facility] Comment on above: Performed By: #### U AMIC, URTPRT #### [address] [address] Adult School Counselor: Gideon Bullock MD Protein Ql (U) Negative Normal NEG [facility] Comment on above: Performed By: #### U AMIC, URTPRT #### [facility] [address] [place] [address] Adult School Counselor: Gideon Bullock MD Spec. Romeo,Ur 1.021 Normal 1.005-1.030 [facility] Comment on above: Performed By: #### U AMIC, URTPRT #### [address] [address] Adult School Counselor: Gideon Bullock MD Urine RBC's 20 TO 50 Normal 0-[address] [facility] Comment on above: Result Comment: Refe rence range defined for non-centrifuged specimen. Performed By: #### U AMIC, URTPRT #### [address] [address] Adult School Counselor: Gideon Bullock MD Urine WBC's 0 TO 2 Normal 0-[address] [facility] Comment on above: Performed By: #### U AMIC, URTPRT #### [facility] [address] [place] [address] Adult School Counselor: Gideon Bullock MD Urobilinogen,Ur Normal Normal 0.0-1.[address] [facility] Comment on above: Performed By: #### U AMIC, URTPRT #### [address] [address] Adult School Counselor: Gideon Bullock MD Vaginitis DNA Probeon 2023 Litzy Negative Normal NEG [facility] Comment on above: Result Comment: for Litzy sp. Method of testing is a DNA probe intended for detection and identification of Litzy species, Gardnerella vaginalis, and Trichomonas vaginalis nucleic acid in vaginal fluid specimens from patients with symptoms of vaginitis/vaginosis. Performed By: #### U AMIC, URTPRT #### [facility] [address] [place] [address] Adult School Counselor: Gideon Bullock MD Gardnerella Positive Abnormal NEG [facility] Comment on above: Result Comment: for Gardnerella vaginalis Performed By: #### U AMIC, URTPRT #### [facility] [address] [place] [address] Adult School Counselor: Gideon Bullock MD Trichomonas Negative Normal NEG [facility] Comment on above: Result Comment: for Trichomonas Vaginalis Performed By: #### U AMIC, URTPRT #### [facility] [address] [place] [address] Adult School Counselor: Gideon Bullock MD Source .VAGINAL SWAB Normal [facility] Comment on above: Performed By: #### U AMIC, URTPRT #### [address] [address] Adult School Counselor: Gideon Bullock MD Thyroid Stim. Horm.on 2023 Thyroid Stim. Horm. 1.48 uIU/mL Normal 0.27-4.20 [facility] Comment on above: Performed By: #### U AMIC, URTPRT #### [address] [address] Adult School Counselor: Gideon Bullock MD Thyroxine, Freeon 12-06-2023 Thyroxine, Free 0.9 ng/dL Low 0.92-1.[address] [facility] Comment on above: Performed By: #### U AMIC, URTPRT #### [address] [address] Adult School Counselor: Gideon Bullock MD Thyroid Stim. Horm.on 2023 Thyroid Stim. Horm. 1.66 uIU/mL Normal 0.27-4.20 [facility] Comment on above: Performed By: #### P ROCAC, AT3A, PROSAC, HOCYS, GLYHGB, TSH, LUPPRO, FT4 #### [address] [address] Adult School Counselor: Gideon Bullock MD #### AAFPM #### [address] [address] Adult School Counselor: Gideon Bullock MD [facility] [address] [place] [address] Adult School Counselor: Fantasma Wood MD #### AF5MUT, AMTHFR, APTMUT #### [facility] [address] [place] [address] Adult School Counselor: Fantasma Wood MD Thyroxine, Freeon 11-08-2023 Thyroxine, Free 0.9 ng/dL Low 0.92-1.[address] [facility] Comment on above: Performed By: #### P ROCAC, AT3A, PROSAC, HOCYS, GLYHGB, TSH, LUPPRO, FT4 #### [facility] [address] [place] [address] Adult School Counselor: Gideon Bullock MD #### AAFPM #### [facility] [address] [place] [address] Adult School Counselor: Gideon uBllock MD [facility] [address] [place], [place] [phone] Adult School Counselor: Fantasma Wood MD #### AF5MUT, AMTHFR, APTMUT #### [facility] [address] [place], [place] [id number] Adult School Counselor: Fantasma Wood MD PT Mutation [id number] 10-13-19 24 PT [id number] VARIANT Negative Normal [facility] Comment on above: Result Comment: (NOT E) Indication for testing: Assess genetic risk for thrombosis. NEGATIVE: The Factor II, prothrombin [id number] mutation, was not detected. Other causes of [...] Dsouza, Ph.D. 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 PATHOGENIC VARIANT TESTED: F2 c.*97G>A (A60331V). CLINICAL SENSITIVITY FOR VENOUS THROMBOSIS: Approximately 10 percent. METHODOLOGY: Polymerase chain reaction and fluorescence monitoring. ANALYTICAL SENSITIVITY AND SPECIFICITY: 99 percent. LIMITATIONS: Diagnostic errors can occur due to rare sequence variations. F2 gene variants, other than c.*97G>A (P22130O), will not be detected. This test was developed and its performance characteristics determined by [facility]. It has not been cleared or approved by the [place] Food and Drug Administration. This test was performed in a CLIA certified laboratory and is intended for clinical purposes. Counseling and informed consent are recommended for genetic testing. Consent forms are available online. Performed By: [facility] [address] [place] [id number] Caddy Master: Andrew Duran MD, PhD [place] Number: [id number] Performed By: #### U AMIC, URTPRT #### [facility] [address] [place] [address] [phone] Adult School Counselor: Gideon Bullock MD PT PCR SPECIMEN Whole Blood Normal [facility] Comment on above: Performed By: #### U AMIC, URTPRT #### [facility] [address] [place] [address] [phone] Adult School Counselor: Gideon Bullock MD Factor V Mutationon 10-12-19 24 F 5 SPECIMEN Whole Blood Normal [facility] Comment on above: Performed By: #### U AMIC, URTPRT #### [facility] [facility] [place], [place] [id number] Adult School Counselor: Gideon Bullock MD FACTOR 5 MUTATION Negative Normal [facility] Comment on above: Result Comment: (NOT E) Indication for testing: Assess genetic risk for thrombosis. NEGATIVE: The factor V Leiden variant, c.1601G>A; p.[id number], was not detected. This does not exclude [...] function in the F5 gene variant c.1601G>A (p.Zvw917Cyf). Legacy nomenclature: [id number] (1691G>A) CLINICAL SENSITIVITY: 20-50 percent of individuals with an isolated VTE have the FVL variant. METHODOLOGY: Polymerase chain reaction and fluorescence monitoring. ANALYTICAL SENSITIVITY AND SPECIFICITY: 99 percent. LIMITATIONS: Diagnostic errors can occur due to rare sequence variations. F5 gene mutations, other than p.Mow130Vau, will not be detected. This test was developed and its performance characteristics determined by [facility]. It has not been cleared or approved by the [place] Food and Drug Administration. This test was performed in a CLIA certified laboratory and is intended for clinical purposes. Counseling and informed consent are recommended for genetic testing. Consent forms are available online. Performed By: [facility] [address] [place] [address] Caddy Master: Andrew Duran MD, PhD CLIA Number: [id number] Performed By: #### U AMIC, URTPRT #### [facility] [address] [place] [address] Adult School Counselor: Gideon Bullock MD MTHFR Gene Mutationon 2023 MTHFR 1286 A>C Mut Heterozygous Normal [facility] Comment on above: Performed By: #### U AMIC, URTPRT #### [facility] [address] [place] [address] Adult School Counselor: Gideon Bullock MD MTHFR 655C>T Mut Negative Normal [facility] Comment on above: Performed By: #### U AMIC, URTPRT #### [facility] [address] [place] [address] Adult School Counselor: Gideon Bullock MD MTHFR Interpretation See Note Normal [facility] Comment on above: Result Comment: (NOT E) Indication for testing: Determine genetic contribution to hyperhomocysteinemia. 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 The [employer] Practice Guidelines indicate [...] a contributing factor to hyperhomocysteinemia. Variants Tested: c.665C>T(p.Fty115Myl) and c.1286A>C(p.Vmu021Ffo). (legacy names C677T and [id number], respectively). Clinical Sensitivity: Undefined; hyperhomocysteinemia is caused [...] developed and its performance characteristics determined by [facility]. It has not been cleared or approved by the US Food and Drug Administration. This test was performed in a CLIA certified laboratory and is intended for clinical purposes. Counseling and informed consent are recommended for genetic testing. Consent forms are available online. Performed By: [facility] [address] [place] [address] Caddy Master: Andrew Duran MD, PhD CLIA Number: [id number] Performed By: #### U AMI, URTPRT #### [employer] [address] [place] [address] Adult School Counselor: Gideon Bullock MD MTHFR SPECIMEN Whole Blood Normal [facility] Comment on above: Performed By: #### U VIVIEN, URTPRT #### [facility] [address] [place] [address] Adult School Counselor: Gideon Bullock MD AFP, Maternalon 10-11-2023 Determined by Ultrasound Normal [facility] Comment on above: Performed By: #### U AMIC, URTPRT #### [address] [address] Adult School Counselor: Gideon Bullock MD Due Date SEE NOTE [facility] Comment on above: Result Comment: Resu lts for Estimated Due Date: 02 26 24 Performed By: #### U AMIC, URTPRT #### [address] [address] Adult School Counselor: Gideon Bullock MD Family History No [facility] Comment on above: Performed By: #### U AMIC, URTPRT #### [facility] [address] [place] [address] Adult School Counselor: Gideon Bullock MD Gestat Age (exact) 20 wks, 0 days Normal [facility] Comment on above: Performed By: #### U AMIC, URTPRT #### [address] [address] Adult School Counselor: Gideon Bullock MD Ins Req Matern Diab Yes [facility] Comment on above: Performed By: #### U AMIC, URTPRT #### [address] [address] Adult School Counselor: Gideon Bullock MD Interpretation Screen Neg Normal [facility] Comment on above: Result Comment: (NOT E) [...] developed and its performance characteristics determined by [facility]. It has not been cleared or approved by the US Food and Drug Administration. This test was performed in a CLIA certified laboratory and is intended for clinical purposes. Performed By: #### U AMIC, URTPRT #### [facility] [employer] [address] [place] [address] Adult School Counselor: Gideon Bullock MD [age] [facility] Comment on above: Performed By: #### U AMIC, URTPRT #### [facility] [address] [place] [address] Adult School Counselor: Gideon Bullock MD Maternal Race Nonblack [facility] Comment on above: Performed By: #### U AMIC, URTPRT #### [facility] [address] [place] [address] Adult School Counselor: Gideon Bullock MD Maternal Weight 298.0 lbs. [facility] Comment on above: Performed By: #### U AMIC, URTPRT #### [facility] [address] [place] [address] Adult School Counselor: Gideon Bullock MD MoM for AFP 1.29 [facility] Comment on above: Performed By: #### U AMIC, URTPRT #### [facility] [address] [place] [address] Adult School Counselor: Gideon Bullock MD Number of Fetuses Rodriguez [facility] Comment on above: Performed By: #### U AMIC, URTPRT #### [facility] [address] [place] [address] Adult School Counselor: Gideon Bullock MD Patient's AFP 39 ng/mL [facility] Comment on above: Performed By: #### U AMIC, URTPRT #### [facility] [address] [place] [address] Adult School Counselor: Giedon Bullock MD Smoking No [facility] Comment on above: Performed By: #### U AMIC, URTPRT #### [facility] [address] [place] [address] Adult School Counselor: Gideon Bullock MD Specimen See Note Normal [facility] Comment on above: Result Comment: (NOT E) Initial sample Performed By: [facility] [address] [place] [address] Caddy Master: Andrew Duran MD, PhD CLIA Number: [id number] Performed By: #### U AMIC, URTPRT #### [facility] [address] [place] [address] Adult School Counselor: Gideon Bullock MD AFP, Maternalon 10-10-2023 Current Smoking NO [facility] Comment on above: Performed By: #### U AMIC, URTPRT #### [facility] [address] [place] [address] Adult School Counselor: Gideon Bullock MD Dating US Normal [facility] Comment on above: Performed By: #### U AMIC, URTPRT #### [facility] [address] [place] [address] Adult School Counselor: Gideon Bullock MD Diabetic YES Normal [facility] Comment on above: Performed By: #### U AMIC, URTPRT #### [facility] [address] [place] [address] Adult School Counselor: Gideon Bullock MD Donor Egg NO [facility] Comment on above: Performed By: #### U AMIC, URTPRT #### [facility] [address] [place] [address] Adult School Counselor: Gideon Bullock MD Estimated Due Date [id number] [facility] Comment on above: Performed By: #### U AMIC, URTPRT #### [facility] [address] [place] [address] Adult School Counselor: Gideon Bullock MD Family History NONE [facility] Comment on above: Performed By: #### U AMIC, URTPRT #### [facility] [address] [place] [address] Adult School Counselor: Gideon Bullock MD In Vitro Fertalizat NO [facility] Comment on above: Performed By: #### U AMIC, URTPRT #### [address] [address] Adult School Counselor: Gideon Bullock MD LMP date [id number] [facility] Comment on above: Performed By: #### U AMIC, URTPRT #### [facility] [address] [place] [address] Adult School Counselor: Gideon Bullock MD Maternal date [facility] Comment on above: Performed By: #### U AMIC, URTPRT #### [facility] [address] [place] [address] Adult School Counselor: Gideon Bullock MD Maternal Weight 298 [facility] Comment on above: Performed By: #### U AMIC, URTPRT #### [facility] [address] [place] [address] Adult School Counselor: Gideon Bullock MD Monochorionic Twins NO [facility] Comment on above: Performed By: #### U AMIC, URTPRT #### [facility] [address] [place] [address] Adult School Counselor: Gideon Bullock MD Patient Weight Units [facility] Comment on above: Performed By: #### U AMIC, URTPRT #### [facility] [address] [place] [address] Adult School Counselor: Gideon Bullock MD Race (Maternal) NON BLACK [facility] Comment on above: Performed By: #### U AMIC, URTPRT #### [address] [address] Adult School Counselor: Gideon Bullock MD Repeat Specimen NO Normal [facility] Comment on above: Performed By: #### U AMIC, URTPRT #### [address] [address] Adult School Counselor: Gideon Bullock MD Valproic/Carbamazep NONE Normal [facility] Comment on above: Performed By: #### U AMIC, URTPRT #### [address] [address] Adult School Counselor: Gideon Bullock MD Antithrombin III Og[place] 10-09 Antithrombin III Act 110 % Normal 83-122 [facility] Comment on above: Result Comment: Patients receiving Hirudin may have a falsely decreased Antitrombin III Activity. Performed By: #### P ROCAC, AT3A, PROSAC, HOCYS, GLYHGB, TSH, LUPPRO, FT4 #### [address] [address] Adult School Counselor: Gideon Bullock MD #### AAFPM #### [address] [address] Adult School Counselor: Gideon Bullock MD [facility] [address] [place], [place] [id number] Adult School Counselor: Fantasma Wood MD #### AF5MUT, AMTHFR, APTMUT #### [facility] [address] [place] [address] Adult School Counselor: Fantasma Wood MD Lupus Anticoagulanton 2023 Anticardiolipin IgA 1.8 APL Normal 0.0-14.[address] [facility] Comment on above: Result Comment: Reference Range: <14.0 Negative 14.0-20.0 Equivocal >20.0 Positive When results are Equivocal, it is recommended to retest after 4-6 weeks. Performed By: #### P ROCAC, AT3A, PROSAC, HOCYS, GLYHGB, TSH, LUPPRO, FT4 #### [address] [address] Adult School Counselor: Gideon Bullock MD #### AAFPM #### [address] [address] Adult School Counselor: Gideon Bullock MD [facility] [address] [place] [phone] Adult School Counselor: Fantasma Wood MD #### AF5MUT, AMTHFR, APTMUT #### [address] [phone] Adult School Counselor: Fantasma Wood MD Anticardiolipin IgG <0.5 Normal 0.0-10.[address] [facility] Comment on above: Result Comment: Reference Range: <10.0 Negative 10.0-40.0 Equivocal >40.0 Positive Performed By: #### P ROCAC, AT3A, PROSAC, HOCYS, GLYHGB, TSH, LUPPRO, FT4 #### [address] [address] Adult School Counselor: Gideon Bullock MD #### AAFPM #### [address] [address] Adult School Counselor: iGdeon Bullock MD [facility] [address] [place] [phone] Adult School Counselor: Fantasma Wood MD #### AF5MUT, AMTHFR, APTMUT #### [facility] [address] [place] [phone] Adult School Counselor: Fantasma Wood MD Anticardiolipin IgM <0.8 Normal 0.0-10.[address] [facility] Comment on above: Result Comment: Reference Range: <10.0 Negative 10.0-40.0 Equivocal >40.0 Positive Performed By: #### P ROCAC, AT3A, PROSAC, HOCYS, GLYHGB, TSH, LUPPRO, FT4 #### [address] [address] Adult School Counselor: Gideon Bullock MD #### AAFPM #### [address] [address] Adult School Counselor: Gideon Bullock MD [address] [address] Adult School Counselor: Fantasma Wood MD #### AF5MUT, AMTHFR, APTMUT #### [address] [address] Adult School Counselor: Fantasma Wood MD Dilute Heladio Viper Negative Normal [facility] Comment on above: Performed By: #### P ROCAC, AT3A, PROSAC, HOCYS, GLYHGB, TSH, LUPPRO, FT4 #### [address] [address] Adult School Counselor: Gideon Bullock MD #### AAFPM #### [address] [address] Adult School Counselor: Gideon Bullock MD [address] [address] Adult School Counselor: Fantasma Wood MD #### AF5MUT, AMTHFR, APTMUT #### [address] [address] Adult School Counselor: Fantasma Wood MD Protein C Activityon 024 Protein C Activity 136 % Normal >[address] [facility] Comment on above: Result Comment: Patients on [...] PROSAC, HOCYS, GLYHGB, TSH, LUPPRO, FT4 #### [facility] [address] [place] [address] Adult School Counselor: Gideon Bullock MD #### AAFPM #### [address] [address] Adult School Counselor: Gideon Bullock MD [facility] [address] [place] [address] Adult School Counselor: Fantasma Wood MD #### AF5MUT, AMTHFR, APTMUT #### [facility] [address] [place] [address] Adult School Counselor: Fantasma Wood MD Protein S Activityon 024 Protein S Activity 68 % Normal 59-[address] [facility] Comment on above: Result Comment: Patients on [...] PROSAC, HOCYS, GLYHGB, TSH, LUPPRO, FT4 #### [facility] [address] [place] [address] Adult School Counselor: Gideon Bullock MD #### AAFPM #### [address] [address] Adult School Counselor: Gideon Bullock MD [facility] [address] [place] [address] Adult School Counselor: Fantasma Wood MD #### AF5MUT, AMTHFR, APTMUT #### [facility] [address] [place] [address] Adult School Counselor: Fantasma Wood MD Hemoglobin A1Con 10-09-2023 Glucose [Mass/Vol] 103 mg/dL Normal [facility] Comment on above: Result Comment: The ADA and AACC recommend providing the estimated average glucose result to permit better patient understanding of their HBA1c result. Performed By: #### P ROCAC, AT3A, PROSAC, HOCYS, GLYHGB, TSH, LUPPRO, FT4 #### [address] [address] Adult School Counselor: Gideon Bullock MD #### AAFPM #### [address] [address] Adult School Counselor: Gideon Bullock MD [facility] [address] [place], [place] [id number] Adult School Counselor: Fantasma Wood MD #### AF5MUT, AMTHFR, APTMUT #### [facility] [address] [place], [place] [id number] Adult School Counselor: Fantasma Wood MD HbA1c (Bld) [Mass fraction] 5.2 % Normal 4.0-6.[address] [facility] Comment on above: Performed By: #### P ROCAC, AT3A, PROSAC, HOCYS, GLYHGB, TSH, LUPPRO, FT4 #### [address] [address] Adult School Counselor: Gideon Bullock MD #### AAFPM #### [address] [address] Adult School Counselor: Gideon Bullock MD [facility] [address] [place], [place] [id number] Adult School Counselor: Fantasma Wood MD #### AF5MUT, AMTHFR, APTMUT #### [facility] [address] [place] [address] Adult School Counselor: Fantasma Wood MD Homocysteineon 10-09-2023 Homocysteine 4.3 umol/L Normal 0.0-15.[address] [facility] Comment on above: Performed By: #### P ROCAC, AT3A, PROSAC, HOCYS, GLYHGB, TSH, LUPPRO, FT4 #### [address] [address] Adult School Counselor: Gideon Bullock MD #### AALESLIEM #### [address] [address] Adult School Counselor: Gideon Bullock MD [address] [phone] Adult School Counselor: Fantasma Wood MD #### AF5MUT, AMTHFR, APTMUT #### [facility] [address] [place], [place] [id number] Adult School Counselor: Fantasma Wood MD Lupus Anticoagulanton 2023 aPTT Coag (Bld) [Time] 27.5 s Normal 23.0-36.[address] [facility] Comment on above: Result Comment: IV Heparin Therapy Range: 66.0-92.0 sec Performed By: #### P ROCAC, AT3A, PROSAC, HOCYS, GLYHGB, TSH, LUPPRO, FT4 #### [address] [address] Adult School Counselor: Gideon Bullock MD #### AAFPM #### [address] [address] Adult School Counselor: Gideon Bullock MD [facility] [address] [place] [phone] Adult School Counselor: Fantasma Wood MD #### AF5MUT, AMTHFR, APTMUT #### [facility] [address] [place], [place] [phone] Adult School Counselor: Fantasma Wood MD INR Coag (PPP) [Relative time] 1.0 {INR} Normal [facility] Comment on above: Result Comment: Therapeutic Range: Moderate Anticoagulant Intensity: INR = 2.0-3.0 High Anticoagulant Intensity: INR = 2.5-3.5 Performed By: #### P ROCAC, AT3A, PROSAC, HOCYS, GLYHGB, TSH, LUPPRO, FT4 #### [address] [address] Adult School Counselor: Gideon Bullock MD #### AAFPM #### [address] [address] Adult School Counselor: Gideon Bullock MD [address] [phone] Adult School Counselor: Fantasma Wood MD #### AF5MUT, AMTHFR, APTMUT #### [address] [phone] Adult School Counselor: Fantasma Wood MD PT Coag (PPP) [Time] 13.1 s Normal 11.7-14.9 [facility] Comment on above: Performed By: #### P ROCAC, AT3A, PROSAC, HOCYS, GLYHGB, TSH, LUPPRO, FT4 #### [address] [address] Adult School Counselor: Gideon Bullock MD #### AAFPM #### [address] [address] Adult School Counselor: Gideon Bullock MD [address] [phone] Adult School Counselor: Fantasma Wood MD #### AF5MUT, AMTHFR, APTMUT #### [address] [phone] Adult School Counselor: Fantasma Wood MD Protein,Tot,[place] Uron 2023 Creatinine [Mass/Vol] 120.0 mg/dL Normal 28.0-217.0 [facility] Comment on above: Performed By: #### U AMIC, URTPRT #### [facility] [address] [place] [address] Adult School Counselor: Gideon Bullock MD Tot Prot. Conc. 10 mg/dL Normal [facility] Comment on above: Result Comment: No n ormal range established. Performed By: #### U AMIC, URTPRT #### [address] [address] Adult School Counselor: Gideon Bullock MD TP/Cre Ratio 0.[address] [facility] Comment on above: Performed By: #### U AMIKaushik URTPRT #### [facility] [address] [place] [address] Adult School Counselor: Gideon Bullock MD Thyroid Stim. Horm.on 2023 Thyroid Stim. Horm. 2.35 uIU/mL Normal 0.27-4.20 [facility] Comment on above: Performed By: #### P ROCAC, AT3A, PROSAC, HOCYS, GLYHGB, TSH, LUPPRO, FT4 #### [address] [address] Adult School Counselor: Gideon Bullock MD #### AAFPM #### [address] [address] Adult School Counselor: Gideon Bullock MD [address] [address] Adult School Counselor: Fantasma Wood MD #### AF5MUT, AMTHFR, APTMUT #### [facility] [address] [place] [address] Adult School Counselor: Fantasma Wood MD Thyroxine, Freeon 10-09-2023 Thyroxine, Free 0.9 ng/dL Low 0.92-1.[address] [facility] Comment on above: Performed By: #### P ROCAC, AT3A, PROSAC, HOCYS, GLYHGB, TSH, LUPPRO, FT4 #### [facility] [address] [place] [address] Adult School Counselor: Gideon Bullock MD #### AAFPM #### [facility] [address] [place] [address] Adult School Counselor: Gideon Bullock MD [facility] [address] [place], [place] [phone] Adult School Counselor: Fantasma Wood MD #### AF5MUT, AMTHFR, APTMUT #### [facility] [address] [place] [address] Adult School Counselor: Fantasma Wood MD XR FOOT RT MIN [...] Blas MD on 09/10/2023 12:57 PM Normal [facility] MR BRAIN W WO CONTon 024 MR [...] Rice MD on 06/14/2023 8:30 AM Normal [facility] BASIC METABOLIC PANLon 05-16 Anion gap [Moles/Vol] 10 mmol/L Normal 5-15 [facility] Comment on above: Performed By: #### B PHYLLIS CBCA #### [facility] ([id number]) [address] [place] [address] Calcium [Mass/Vol] 8.9 mg/dL Normal 8.5-10.5 [facility] Comment on above: Performed By: #### B PHYLLIS CBCA #### [facility] ([id number]) [address] [place] [address] Chloride [Moles/Vol] 107 mmol/L Normal 98-109 [facility] Comment on above: Performed By: #### B PHYLLIS CBCA #### [facility] ([id number]) [address] [place] [address] CO2 [Moles/Vol] 18 mmol/L Low 22-32 [facility] Comment on above: Performed By: #### B PHYLLIS CBCA #### [facility] ([id number]) [address] [place] [address] Creatinine [Mass/Vol] 0.58 mg/dL Normal 0.40-1.00 [facility] Comment on above: Result Comment: METH OD TRACEABLE TO IDMS STANDARD Performed By: #### B PHYLLIS CBCA #### [facility] ([id number]) [address] [place] [address] eGFR (CKD-EPI) NON-RACE DEPENDENT >90 Normal >59 [facility] Comment on above: Result Comment: Reported eGFR is based on the CKD-EPI 2020 equation that does not use a race coefficient. Performed By: #### B PHYLLIS CBCA #### [facility] ([id number]) [address] [place] [address] Glucose [Mass/Vol] 109 mg/dL High 65-99 [facility] Comment on above: Performed By: #### B PHYLLIS CBCA #### [facility] ([id number]) [address] [place] [address] Potassium [Moles/Vol] 3.3 mmol/L Low 3.5-5.0 [facility] Comment on above: Performed By: #### B PHYLLIS CBCA #### [facility] ([id number]) [address] [place] [address] Sodium [Moles/Vol] 135 mmol/L Normal 134-146 [facility] Comment on above: Performed By: #### B PHYLLIS CBCA #### [facility] ([id number]) [address] [place] [address] Urea nitrogen [Mass/Vol] 16 mg/dL Normal 5-23 [facility] Comment on above: Performed By: #### B PHYLLIS CBCA #### [facility] ([id number]) [address] [place] [address] CBC AND AUTO DIFFon 05-16- 24 ABSOLUTE BASOPHIL 0.1 X10E9/L Normal 0.0-0.2 [facility] Comment on above: Performed By: #### B PHYLLIS CBCA #### [facility] ([id number]) [address] [place] [address] ABSOLUTE NEUTROPHIL 4.6 X10E9/L Normal 1.5-6.6 [facility] Comment on above: Performed By: #### B MP, CBCA #### [facility] ([id number]) [address] [place] [address] Basophils/100 WBC (Bld) 0.7 % Normal [facility] Comment on above: Performed By: #### B MP, CBCA #### [facility] ([id number]) [address] [place] [address] Eosinophils (Bld) [#/Vol] 0.3 10*3/uL Normal 0.0-0.4 [facility] Comment on above: Performed By: #### B MP, CBCA #### [facility] ([id number]) [address] [place] [address] Eosinophils/100 WBC (Bld) 4.4 % Normal [facility] Comment on above: Performed By: #### B MP, CBCA #### [facility] ([id number]) [address] [place] [address] Erythrocyte distribution width (RBC) [Ratio] 13.3 % Normal 11.5-15.0 [facility] Comment on above: Performed By: #### B MP, CBCA #### [facility] ([id number]) [address] [place] [address] Hematocrit (Bld) [Volume fraction] 40.5 % Normal 35-47 [facility] Comment on above: Performed By: #### B MP, CBCA #### [facility] ([id number]) [address] [place] [address] 49579 Hemoglobin (Bld) [Mass/Vol] 13.8 g/dL Normal 11.7-15.5 [facility] Comment on above: Performed By: #### B MP, CBCA #### [facility] ([id number]) [address] [place] [address] 80248 Lymphocytes (Bld) [#/Vol] 2.0 10*3/uL Normal 1.0-3.5 [facility] Comment on above: Performed By: #### B MP, CBCA #### [facility] ([id number]) [address] [place] [address] 84563 Lymphocytes/100 WBC (Bld) 26.3 % Normal [facility] Comment on above: Performed By: #### B MP, CBCA #### [facility] ([id number]) [address] [place] [address] 39555 MCH (RBC) [Entitic mass] 27.9 pg Normal 27-34 [facility] Comment on above: Performed By: #### B PHYLLIS, CBCA #### [facility] ([id number]) [address] [place] [address] 69029 MCHC (RBC) [Mass/Vol] 34.0 g/dL Normal 32-36 [facility] Comment on above: Performed By: #### B PHYLLIS, CBCA #### [facility] ([id number]) [address] [place] [address] 09432 MCV (RBC) [Entitic vol] 82 fL Normal 80-100 [facility] Comment on above: Performed By: #### B PHYLLIS, CBCA #### [facility] ([id number]) [address] [place] [address] 05607 Monocytes (Bld) [#/Vol] 0.5 10*3/uL Normal 0-0.9 [facility] Comment on above: Performed By: #### B PHYLLIS, CBCA #### [facility] ([id number]) [address] [place] [address] 73618 Monocytes/100 WBC (Bld) 6.9 % Normal [facility] Comment on above: Performed By: #### B PHYLLIS, CBCA #### [facility] ([id number]) [address] [place] [address] 99095 Neutrophils/100 WBC (Bld) 61.7 % Normal [facility] Comment on above: Performed By: #### B PHYLLIS CBCA #### [facility] ([id number]) [address] [place] [address] 56824 Platelet mean volume (Bld) [Entitic vol] 8.4 fL Normal 7-12 [facility] Comment on above: Performed By: #### B PYHLLIS CBCA #### [facility] ([id number]) [address] [place] [address] 65619 Platelets (Bld) [#/Vol] 247 10*3/uL Normal 150-450 [facility] Comment on above: Performed By: #### B PHYLLIS, CBCA #### [facility] ([id number]) [address] [place] [address] 86187 RBC COUNT 4.93 X10E12/L Normal 3.80-5.20 [facility] Comment on above: Performed By: #### B PHYLLIS CBCA #### [facility] ([id number]) [address] [place] [address] 97210 WBC (Bld) [#/Vol] 7.5 10*3/uL Normal 4.0-11.0 [facility] Comment on above: Performed By: #### B PHYLLIS CBCA #### [facility] ([id number]) [address] [place] [address] BRAIN WO CONTon CT BRAIN WO [...] Leon MD on 05/16/2023 10:57 AM Normal [facility] HCG ( test) Ql (U)o n 05-16-2023 Beta HCG ( test) Ql (U) Negative Normal NEG [facility] Comment on above: Performed By: #### 2 106-3 #### [facility] ([id number]) [address] [place] [address] 53636 URN MACROSCOPIC NURon 2023 BILIRUBIN TADEO Negative [facility] Comment on above: Performed By: #### N UM #### [facility] ([id number]) [address] [place] [address] 75051 BLOOD/HGB TADEO Negative Normal [facility] Comment on above: Performed By: #### N UM #### [facility] ([id number]) [address] [place] [address] 66297 GLUCOSE TADEO Negative Normal [facility] Comment on above: Performed By: #### N UM #### [facility] ([id number]) [address] [place] [address] 09178 KETONES TADEO Negative Normal [facility] Comment on above: Performed By: #### N UM #### [facility] ([id number]) [address] [place] [address] 51582 LEUKOCYTE ESTERASE TADEO Negative Normal [facility] Comment on above: Performed By: #### N UM #### [facility] ([id number]) [address] [place] [address] 25019 NITRITE TADEO Negative Normal NEG [facility] Comment on above: Performed By: #### N UM #### [facility] ([id number]) [address] [place] [address] 95754 PH TADEO 6.5 Normal 5.0-8.5 [facility] Comment on above: Performed By: #### N UM #### [facility] ([id number]) [address] [place] [address] 99149 PROTEIN TADEO Negative Normal NEG [facility] Comment on above: Performed By: #### N UM #### [facility] ([id number]) [address] [place] [address] 27439 SPECIFIC GRAVITY TADEO 1.025 Normal 1.003-1.035 [facility] Comment on above: Performed By: #### N UM #### [facility] ([id number]) [address] [place] [address] 75432 UROBILINOGEN TADEO 0.2 eu/dL Normal <1.1 [facility] Comment on above: Performed By: #### N UM #### [facility] ([id number]) [address] [place] [address] 87577 COVID + FLU Quick Testingon 02-05-2023 SARS-CoV-2 (COVID-19) RNA SARANYA+probe Ql (Unsp spec) Negative [facility]amb[employer] Other COVID + FLU Quick Testing Negative [facility] [employer] Other Aerobic Cultureon 12-22-2022 Aerobic Culture Comment tube 2 No Growth 2 Days Comment tube 2 No Anaerobes Isolated 3 Days Comment tube 2 Gram Stain Result No White Blood Cells Seen No Bacteria Seen PERFORMED BY: [facility] [address] [facility] [place] [address] PATHOLOGIST STEM PROCESSING MACHINE OPERATOR ALLEN COATES M.D. Normal [facility] Comment on above: Performed By: #### C BC, PT, PTT #### [facility] [address] [place] [address] CSF PCR Panelon 12-22-2022 CSF PCR Panel [...] Varicella zoster virus Not detected PERFORMED BY: [place] [address] PATHOLOGIST STEM PROCESSING MACHINE OPERATOR ALLEN COATES M.D. [facility] Comment on above: Performed By: #### C SF PCR PANEL #### [address] Cell Count Differential,CSFo n 12-22-2022 Appearance, CSF Clear Normal Clear [facility] Comment on above: Order Comment: Comme nt tube 1 Performed By: #### C SFCCDIFF #2, CSF TP #2, CSF GLU #2, CSF GLU, CSF TP, GS, AERC, CSFCCDIFF #### [address] Order Comment: Comme nt tube 4 Color, CSF Colorless Normal Colorless [facility] Comment on above: Order Comment: Comme nt tube 1 Performed By: #### C SFCCDIFF #2, CSF TP #2, CSF GLU #2, CSF GLU, CSF TP, GS, AERC, CSFCCDIFF #### [address] Order Comment: Comme nt tube 4 CSF Supernatant Color Colorless Normal Colorless [facility] Comment on above: Order Comment: Comme nt tube 1 Performed By: #### C SFCCDIFF #2, CSF TP #2, CSF GLU #2, CSF GLU, CSF TP, GS, AERC, CSFCCDIFF #### [place] [address] [place] Order Comment: Comme nt tube 4 CSF Volume, Total 29.4 mL Normal [facility] Comment on above: Order Comment: Comme nt tube 1 Performed By: #### C SFCCDIFF #2, CSF TP #2, CSF GLU #2, CSF GLU, CSF TP, GS, AERC, CSFCCDIFF #### [facility] [address] Order Comment: Comme nt tube 4 Lymphocytes, CSF 4 Normal [facility] Comment on above: Order Comment: Comme nt tube 1 Result Comment: The reference interval and other method performance specifications have not been established for this body fluid. The test result must be integrated into the clinical context for interpretation. Performed By: #### C SFCCDIFF #2, CSF TP #2, CSF GLU #2, CSF GLU, CSF TP, GS, AERC, CSFCCDIFF #### [facility] [address] [place] [address] RBC, CSF 2 /uL [facility] Comment on above: Order Comment: Comme nt tube 1 Result Comment: The reference interval and other method performance specifications have not been established for this body fluid. The test result must be integrated into the clinical context for interpretation. Performed By: #### C SFCCDIFF #2, CSF TP #2, CSF GLU #2, CSF GLU, CSF TP, GS, AERC, CSFCCDIFF #### [facility] [address] [place] [address] TNC, CSF 1 /uL Normal 0-5 [facility] Comment on above: Order Comment: Comme nt tube 1 Performed By: #### C SFCCDIFF #2, CSF TP #2, CSF GLU #2, CSF GLU, CSF TP, GS, AERC, CSFCCDIFF #### [facility] [address] [place] [address] Order Comment: Comme nt tube 4 Tube Number Tested, CSF Tube Number: 1 [facility] Comment on above: Order Comment: Comme nt tube 1 Result Comment: PERF ORMED BY: [place] [address] PATHOLOGIST STEM PROCESSING MACHINE OPERATOR ALLEN COATES M.D. Performed By: #### C SFCCDIFF #2, CSF TP #2, CSF GLU #2, CSF GLU, CSF TP, GS, AERC, CSFCCDIFF #### [facility] [address] [place] [address] Cell Count Differential,CSF #2on 12-22-2022 Lymphocytes, CSF 7 Normal [facility] Comment on above: Order Comment: Comme nt tube 4 Result Comment: The reference interval and other method performance specifications have not been established for this body fluid. The test result must be integrated into the clinical context for interpretation. Performed By: #### C SFCCDIFF #2, CSF TP #2, CSF GLU #2, CSF GLU, CSF TP, GS, AERC, CSFCCDIFF #### [address] RBC, CSF 1 /uL Normal [facility] Comment on above: Order Comment: Comme nt tube 4 Result Comment: The reference interval and other method performance specifications have not been established for this body fluid. The test result must be integrated into the clinical context for interpretation. Performed By: #### C SFCCDIFF #2, CSF TP #2, CSF GLU #2, CSF GLU, CSF TP, GS, AERC, CSFCCDIFF #### [address] Tube Number Tested, CSF Tube Number: 4 Normal [facility] Comment on above: Order Comment: Comme nt tube 4 Result Comment: PERF ORMED BY: [place] [address] PATHOLOGIST STEM PROCESSING MACHINE OPERATOR ALLEN COATES M.D. Performed By: #### C SFCCDIFF #2, CSF TP #2, CSF GLU #2, CSF GLU, CSF TP, GS, AERC, CSFCCDIFF #### [facility] [address] [place] [address] Cerebrospinal fluid post-adams trifugation appearance determinationOrdered By: Razia Muller on 12-22-2022 Appearance (Spun CSF) Colorless Colorless [facility] Cerebrospinal fluid sample t ube volume measurementOrdered By: Razia Muller on 12-22-2022 Specimen volume (CSF) 29.[address] [facility] Color CSFOrdered By: Razia longo on 12-22-2022 Color (CSF) Colorless Colorless [facility] Glucose, CSF #2on 12-22-2022 Glucose, CSF #2 71 mg/dL High 40-70 [facility] Comment on above: Order Comment: Comme nt tube 4 Performed By: #### C BC, PT, PTT #### [facility] [address] [place] [address] [place] Glucose, Spinal Fluidon Glucose, Spinal Fluid 73 mg/dL High 40-70 [facility] Comment on above: Order Comment: Comme nt tube 1 Performed By: #### C SFCCDIFF #2, CSF TP #2, CSF GLU #2, CSF GLU, CSF TP, GS, AERC, CSFCCDIFF #### [facility] [address] [place] [address] Gram Stainon 12-22-2022 Microscopic observation Gram stain Nom (Unsp spec) Comment tube 2 Gram Stain Result No White Blood Cells Seen No Bacteria Seen PERFORMED BY: [place] [address] PATHOLOGIST STEM PROCESSING MACHINE OPERATOR ALLEN COATES M.D. [facility] Comment on above: Performed By: #### C SFCCDIFF #2, CSF TP #2, CSF GLU #2, CSF GLU, CSF TP, GS, AERC, CSFCCDIFF #### [facility] [address] [place] [address] IR guided lumbar puncture LP on 12-22-2022 IR guided lumbar puncture LP [facility] [place] [address] [place] [address] Interventional Radiology Rpt Signed Patient: Yani Stevens MR#: [id number] : 1990 Acct:[id number] Age/Sex: 32 / F ADM Date: 12/22/22 Loc: XD Room: Type: [facility] Attending Dr: Razia Muller GLASS BLOCK BENDER-TUBE INSPECTOR-C Copies to: Razia Muller APRN-TUBE INSPECTOR-C Ordering Provider: TONJA Jimenez Date of Service: [...] Vernon Lin M.D.12/22/2022 1:07 PM Dictation Location: [place] [address] Transcribed By: [facility] 12/22/22 1307 Dictated By: Vernon Lin II, MD 12/22/22 1253 Signed By: 12/22/22 1307 [facility] 12-22-2022 L ---- Specimen: [id number] Received: 12/22/22 Status: TERRANCE Earlyhe Num: [id number] Spec Type: Cytology Subm Dr: TONJA Jimenez Tissues: A CSF (CSF) Procedures: Cyto Prepstain, DIFF QWIK, PAPSTN Age/ Patient Sex Location Account Attending Physician Yani Stevens 32/F XD [id number] TONJA Jimenez SPEC NUM: [id number] RECD: 12/22/22 STATUS: TERRANCE PAN NUM: [id number] TOMASA: 12/22/22 [facility] DR: TONJA Jimenez ENTERED: 12/22/[address] [facility] [address]: Vernon Lin II, MD SPEC TYPE: Cytology DEPT: [facility] ENTERED BY: [id number] RECV BY: [id number] ORDERED: Cyto Prepstain, DIFF QWIK, PAPSTN ORDERED: [...] [id number] Received: 12/22/22 Status: TERRANCE [place] Num: [id number] Spec Type: Cytology Subm Dr: Razia Muller APRN-TUBE INSPECTOR-C Tissues: A CSF (CSF) Procedures: Cyto Prepstain, DIFF QWIK, PAPSTN Patient: Yani Stevens [id number] (Continued) Signed (signature on file) Dimas De Anda MD 12/26/22 0905 Normal [facility] Manual cerebrospinal fluid e rythrocytes count (number/volume)Ordered By: Razia Muller on 12-22-2022 RBC Manual cnt (CSF) [#/Vol] 1 /uL [facility] Comment on above: The reference interv al and other method performance specifications have not been established for this body fluid. The test result must be integrated into the clinical context for interpretation. No Panel InformationOrdered By: Razia Muller on 12-22-2022 CSF Appearance Clear Clear [facility] CSF Eosinophils N/A [facility] CSF Lymphocytes 7 [facility] Comment on above: The reference interv al and other method performance specifications have not been established for this body fluid. The test result must be integrated into the clinical context for interpretation. CSF Monocytes N/A [facility] CSF Neutrophils N/A [facility] CSF Tube Number Tube number: 4 [facility] Nucleated cells [#/volume] i n Cerebral spinal fluid by Manual countOrdered By: Razia Muller on 12-22-2022 Nucleated cells Manual cnt (CSF) [#/Vol] 0.001 10*3/uL 0-5 [facility] Total Protein, CSF #2on 09-0 Total Protein, CSF #2 31 mg/dL Normal 15-45 [facility] Comment on above: Order Comment: Comme nt tube 4 Result Comment: PERF ORMED BY: [facility] [address] [place] [address] PATHOLOGIST STEM PROCESSING MACHINE OPERATOR ALLEN COATES M.D. Performed By: #### C BC, PT, PTT #### [facility] [address] Total Protein, Spinal Fluido n 12-22-2022 Total Protein, Spinal Fluid 34 mg/dL Normal 15-45 [facility] Comment on above: Order Comment: Comme nt tube 1 Result Comment: PERF ORMED BY: [place] [address] PATHOLOGIST STEM PROCESSING MACHINE OPERATOR ALLEN COATES M.D. Performed By: #### C BC, PT, PTT #### [address] Activated partial thrombopla stin time (aPTT) in platelet poor plasma by coagulation aOrdered By: Razia Muller on 12-20-2022 aPTT Coag (PPP) [Time] 32.8 s 25.1-36.5 [facility] Basophils Auto (Bld) [#/Vol] Ordered By: Razia Muller on 12-20-2022 Basophils (Bld) [#/Vol] 0.0 10*3/uL 0.0-0.2 [facility] Basophils/100 WBC Auto (Bld) Ordered By: Razia Muller on 12-20-2022 Basophils/100 WBC (Bld) 0.5 % . [facility] Complete Blood Count Auto Di ffon 12-20-2022 Basophils (Bld) [#/Vol] 0.0 10*3/uL Normal 0.0-0.2 [facility] Comment on above: Result Comment: PERF ORMED BY: [place] [address] PATHOLOGIST STEM PROCESSING MACHINE OPERATOR ALLEN COATES M.D. Performed By: #### C BC, PT, PTT #### [place] [address] [place] Basophils/100 WBC (Bld) 0.5 % Normal . [facility] Comment on above: Performed By: #### C BC, PT, PTT #### [place] [id number] [facility] Eosinophils (Bld) [#/Vol] 0.2 10*3/uL Normal 0.0-0.45 [facility] Comment on above: Performed By: #### C BC, PT, PTT #### [facility] [address] [place] [address] [place] Eosinophils/100 WBC (Bld) 3.2 % Normal . [facility] Comment on above: Performed By: #### C BC, PT, PTT #### [facility] [address] Erythrocyte distribution width (RBC) [Ratio] 13.9 % Normal 11.9-15.3 [facility] Comment on above: Performed By: #### C BC, PT, PTT #### [facility] [address] Hematocrit (Bld) [Volume fraction] 40.9 % Normal 34.0-46.4 [facility] Comment on above: Performed By: #### C BC, PT, PTT #### [facility] [address] Hemoglobin (Bld) [Mass/Vol] 13.6 g/dL Normal 11.8-15.4 [facility] Comment on above: Performed By: #### C BC, PT, PTT #### [address] Lymphocytes (Bld) [#/Vol] 2.1 10*3/uL Normal 1.00-4.8 [facility] Comment on above: Performed By: #### C BC, PT, PTT #### [place] [address] [place] Lymphocytes/100 WBC (Bld) 29.1 % Normal . [facility] Comment on above: Performed By: #### C BC, PT, PTT #### [facility] [address] MCH (RBC) [Entitic mass] 27.6 pg Normal 24.7-34.3 [facility] Comment on above: Performed By: #### C BC, PT, PTT #### [address] MCV (RBC) [Entitic vol] 83.0 fL Normal 80-100 [facility] Comment on above: Performed By: #### C BC, PT, PTT #### [facility] [address] Mean Corpuscular HGB Conc 33.2 g/dL Normal 32.0-35.0 [facility] Comment on above: Performed By: #### C BC, PT, PTT #### [facility] [address] Monocytes (Bld) [#/Vol] 0.5 10*3/uL Normal 0.0-0.8 [facility] Comment on above: Performed By: #### C BC, PT, PTT #### [facility] [address] Monocytes/100 WBC (Bld) 6.3 % Normal . [facility] Comment on above: Performed By: #### C BC, PT, PTT #### [facility] [address] [place] [address] Neutrophils (Bld) [#/Vol] 4.4 10*3/uL Normal 1.8-7.7 [facility] Comment on above: Performed By: #### C BC, PT, PTT #### [address] Neutrophils/100 WBC (Bld) 60.9 % Normal . [facility] Comment on above: Performed By: #### C BC, PT, PTT #### [facility] [address] [place] [address] NRBC% 0.1 /100{WBC} Normal 0-0.5 [facility] Comment on above: Performed By: #### C BC, PT, PTT #### [facility] [address] Platelet mean volume (Bld) [Entitic vol] 8.1 fL Normal 6.3-10.7 [facility] Comment on above: Performed By: #### C BC, PT, PTT #### [facility] [address] Platelets (Bld) [#/Vol] 222 10*3/uL Normal 150-450 [facility] Comment on above: Performed By: #### C BC, PT, PTT #### [facility] [address] RBC (Bld) [#/Vol] 4.93 10*6/uL Normal 3.60-5.00 [facility] Comment on above: Performed By: #### C BC, PT, PTT #### [facility] [address] WBC (Bld) [#/Vol] 7.3 10*3/uL Normal 3.8-11.6 [facility] Comment on above: Performed By: #### C BC, PT, PTT #### [facility] [address] Eosinophils Auto (Bld) [#/Vo l]Ordered By: Razia Muller on 12-20-2022 Eosinophils (Bld) [#/Vol] 0.2 10*3/uL 0.0-0.45 [facility] Eosinophils/100 WBC Auto (Bl d)Ordered By: Razia Muller on 12-20-2022 Eosinophils/100 WBC (Bld) 3.2 % . [facility] Erythrocyte distribution wid th Auto (RBC) [Ratio]Ordered By: Razia Muller on 12-20-2022 Erythrocyte distribution width (RBC) [Ratio] 13.9 % 11.9-15.3 [facility] Hematocrit Auto (Bld) [Volum e fraction]Ordered By: Razia Muller on 12-20-2022 Hematocrit (Bld) [Volume fraction] 40.9 % 34.0-46.4 [facility] Hemoglobin [Mass/volume] in BloodOrdered By: Razia Muller on 12-20-2022 Hemoglobin (Bld) [Mass/Vol] 13.6 g/dL 11.8-15.4 [facility] INR in Platelet poor plasma by Coagulation assayOrdered By: Razia Muller on 12-20-2022 INR Coag (PPP) [Relative time] 1.0 {INR} [facility] Comment on above: INR Therapeutic Rang [...] 4.5 Laboratory - CoagulationOrde red By: Razia Mulelr on 12-20-2022 PT Coag (PPP) [Time] 11.1 s 9.0-12.9 [facility] Leukocytes [#/volume] correc burke for nucleated erythrocytes in Blood by Automated counOrdered By: Razia Muller on 12-20-2022 WBC corrected for nucl RBC Auto (Bld) [#/Vol] 7.3 10*3/uL 3.8-11.6 [facility] Lymphocytes Auto (Bld) [#/Vo l]Ordered By: Razia Muller on 12-20-2022 Lymphocytes (Bld) [#/Vol] 2.1 10*3/uL 1.00-4.8 [facility] Lymphocytes/100 WBC Auto (Bl d)Ordered By: Razia Muller on 12-20-2022 Lymphocytes/100 WBC (Bld) 29.1 % . [facility] MCH Auto (RBC) [Entitic mass ]Ordered By: Razia Muller on 12-20-2022 MCH (RBC) [Entitic mass] 27.6 pg 24.7-34.3 [facility] MCHC Auto (RBC) [Mass/Vol]Or dered By: Razia Muller on 12-20-2022 MCHC (RBC) [Mass/Vol] 33.2 g/dL 32.0-35.0 [facility] MCV Auto (RBC) [Entitic vol] Ordered By: Razia Muller on 12-20-2022 MCV (RBC) [Entitic vol] 83.0 fL 80-100 [facility] Monocytes Auto (Bld) [#/Vol] Ordered By: Razia Muller on 12-20-2022 Monocytes (Bld) [#/Vol] 0.5 10*3/uL 0.0-0.8 [facility] Monocytes/100 WBC Auto (Bld) Ordered By: Razia Muller on 12-20-2022 Monocytes/100 WBC (Bld) 6.3 % . [facility] Neutrophils Auto (Bld) [#/Vo l]Ordered By: Razia Muller on 12-20-2022 Neutrophils (Bld) [#/Vol] 4.4 10*3/uL 1.8-7.7 [facility] Neutrophils/100 WBC Auto (Bl d)Ordered By: Razia Muller on 12-20-2022 Neutrophils/100 WBC (Bld) 60.9 % . [facility] Nucleated erythrocytes [Pres ence] in Blood by Automated countOrdered By: Razia Muller on 12-20-2022 Nucleated RBC Auto Ql (Bld) 0.1 /100{WBC} 0-0.5 [facility] Partial Thromboplastin Timeo n 12-20-2022 aPTT Coag (Bld) [Time] 32.8 s Normal 25.1-36.5 [facility] Comment on above: Result Comment: PERF ORMED BY: [place] [address] PATHOLOGIST STEM PROCESSING MACHINE OPERATOR ALLEN COATES M.D. Performed By: #### C BC, PT, PTT #### [address] Platelet mean volume Auto (B ld) [Entitic vol]Ordered By: Razia Muller on 12-20-2022 Platelet mean volume (Bld) [Entitic vol] 8.1 fL 6.3-10.7 [facility] Platelets Auto (Bld) [#/Vol] Ordered By: Razia Muller on 12-20-2022 Platelets (Bld) [#/Vol] 222 10*3/uL 150-450 [facility] Prothrombin Time INRon 12-20 INR Coag (PPP) [Relative time] 1.0 {INR} Normal [facility] Comment on above: Result Comment: INR [...] C BC, PT, PTT #### [facility] [address] [place] [id number] [facility] PT Coag (PPP) [Time] 11.1 s Normal 9.0-12.9 [facility] Comment on above: Performed By: #### C BC, PT, PTT #### [facility] [address] [place] [id number] [facility] RBC Auto (Bld) [#/Vol]Ordere d By: Razia Renzo on 12-20-2022 RBC (Bld) [#/Vol] 4.93 10*6/uL 3.60-5.00 [facility] WBC Auto (Bld) [#/Vol]Ordere d By: Razia Muller on 12-20-2022 WBC (Bld) [#/Vol] 7.3 10*3/uL 3.8-11.6 [facility] POC Glucose Fingerstickon Glucose [Mass/Vol] 85 mg/dL 65 - 105 mg/dL [facility] C.trachomatis N.gonorrhoeae DNA, Urineon 07-21-2022 Chlamydia sp DNA SARANYA+probe Ql (U) Negative NEGATIVE [facility] Comment on above: CHLAMYDIA TRACHOMATI S DNA [...] gonorrhoeae DNA SARANYA+probe Ql (U) Negative NEGATIVE [facility] Comment on above: NEISSERIA GONORRHOEA E DNA [...] alternative nucleic acid target. Specimen Description .URINE [facility] CBC auto differentialon 06-23 Absolute Eos # [facility] Absolute Immature Granulocyte 0.12 [facility] Absolute Lymph # 1.21 [facility] Absolute [place] # 0.69 [facility] RS [facility] Basophils (Bld) [#/Vol] 0.03 10*3/uL [facility] Basophils/100 WBC (Bld) 0 % 0 - 2 % [facility] Eosinophils/100 WBC (Bld) 0 % Low 1 - 4 % [facility] Hematocrit (Bld) [Volume fraction] 33.5 % Low 36.3 - 47.1 % [facility] Hemoglobin (Bld) [Mass/Vol] 10.8 g/dL Low 11.9 - 15.1 g/dL [facility] Immature granulocytes/100 WBC (Bld) 1 % High 0 [facility] Interpretation and review of laboratory results Abnormal [facility] Lymphocytes/100 WBC (Bld) 8 % Low 24 - 43 % [facility] MCH (RBC) [Entitic mass] 28.4 pg 25.2 - 33.5 pg [facility] MCHC (RBC) [Mass/Vol] 32.2 g/dL 28.4 - 34.8 g/dL [facility] MCV (RBC) [Entitic vol] 88.2 fL 82.6 - 102.9 fL [facility] Monocytes/100 WBC (Bld) 4 % 3 - 12 % [facility] NRBC Automated 0.0 0.0 per 100 WBC [facility] Platelet distribution width (Bld) [Ratio] 13.2 % 11.8 - 14.4 % [facility] Platelet mean volume (Bld) [Entitic vol] 10.5 fL 8.1 - 13.5 fL [facility] Platelets (Bld) [#/Vol] 197 10*3/uL [facility] RBC (Bld) [#/Vol] 3.80 10*6/uL Low 3.95 - 5.1 1 m/uL [facility] Segmented neutrophils/100 WBC (Bld) 87 % High 36 - 65 % [facility] Segs Absolute 13.58 High [facility] WBC (Bld) [#/Vol] 15.6 10*3/uL High [facility] Yung [facility] Culture, Urineon 07-21-2022 Microorganism identified Cx Nom (Unsp spec) NO SIGNIFICANT GROWTH [facility] Specimen Description .CLEAN CATCH URINE [facility] POC Glucose Fingerstickon Glucose [Mass/Vol] 108 mg/dL High 65 - 105 mg/dL [facility] Interpretation and review of laboratory results Abnormal [facility] Glucose [Mass/Vol] 95 mg/dL 65 - 105 mg/dL [facility] Glucose [Mass/Vol] 123 mg/dL High 65 - 105 mg/dL [facility] Interpretation and review of laboratory results Abnormal [facility] CBCon 07-20-2022 Hematocrit (Bld) [Volume fraction] 32.8 % Low 36.3 - 47.1 % [facility] Hemoglobin (Bld) [Mass/Vol] 11.0 g/dL Low 11.9 - 15.1 g/dL [facility] Interpretation and review of laboratory results Abnormal [facility] MCH (RBC) [Entitic mass] 28.6 pg 25.2 - 33.5 pg [facility] MCHC (RBC) [Mass/Vol] 33.5 g/dL 28.4 - 34.8 g/dL [facility] MCV (RBC) [Entitic vol] 85.4 fL 82.6 - 102.9 fL [facility] NRBC Automated 0.0 0.0 per 100 WBC [facility] Platelet distribution width (Bld) [Ratio] 13.2 % 11.8 - 14.4 % [facility] Platelet mean volume (Bld) [Entitic vol] 10.8 fL 8.1 - 13.5 fL [facility] Platelets (Bld) [#/Vol] 200 10*3/uL [facility] RBC (Bld) [#/Vol] 3.84 10*6/uL Low 3.95 - 5.1 1 m/uL [facility] WBC (Bld) [#/Vol] 10.2 10*3/uL [facility] Comprehensive Metabolic Pane mary 07-20-2022 Albumin [Mass/Vol] 3.3 g/dL Low 3.5 - 5.2 g/dL [facility] Albumin/Globulin [Mass ratio] 1.0 {ratio} 1.0 - 2.5 [facility] ALP [Catalytic activity/Vol] 142 U/L High 35 - 104 U/L [facility] ALT [Catalytic activity/Vol] 15 U/L 5 - 33 U/L [facility] Anion gap [Moles/Vol] 12 mmol/L 9 - 17 mmol/L [facility] AST [Catalytic activity/Vol] 15 U/L NINF - 32 U/L [facility] Bilirubin [Mass/Vol] mg/dL Low 0.3 - 1 .2 mg/dL [facility] Calcium [Mass/Vol] 9.0 mg/dL 8.6 - 10. 4 mg/dL [facility] Chloride [Moles/Vol] 104 mmol/L 98 - 10 7 mmol/L [facility] CO2 [Moles/Vol] 21 mmol/L 20 - 31 mmol/L [facility] Creatinine [Mass/Vol] 0.41 mg/dL Low 0.50 - 0.90 mg/dL [facility] GFR/1.73 sq M.predicted MDRD (S/P/Bld) [Vol rate/Area] - PINF [facility] Comment on above: These results are not [...] 135 mg/dL High 70 - 99 mg/dL [facility] Interpretation and review of laboratory results Abnormal [facility] Potassium [Moles/Vol] 3.8 mmol/L 3.7 - 5.3 mmol/L [facility] Protein [Mass/Vol] 6.5 g/dL 6.4 - 8.3 g/dL [facility] Sodium [Moles/Vol] 137 mmol/L 135 - 144 mmol/L [facility] Urea nitrogen [Mass/Vol] 8 mg/dL 6 - 20 mg/dL [facility] DRUG SCREEN MULTI URINEon Amphetamine Screen, Ur Negative NEGATIVE [facility] [employer] [facility] Comment on above: (Positive cutoff 1000 ng/mL) Barbiturate Screen, Ur Negative NEGATIVE [facility] Comment on above: (Positive cutoff 200 ng/mL) Benzodiazepine Screen, Urine Negative NEGATIVE [facility] Comment on above: (Positive cutoff 200 ng/mL) Cannabinoid Scrn, Ur Negative NEGATIVE [facility] Comment on above: (Positive cutoff 50 ng/mL) Cocaine Metabolite, Urine Negative NEGATIVE [facility] Comment on above: (Positive cutoff 300 ng/mL) Fentanyl, Ur Negative NEGATIVE [facility] Comment on above: (Positive cutoff 5 ng/ml) Methadone Screen, Urine Negative NEGATIVE [facility] Comment on above: (Positive cutoff 300 ng/mL) Opiates, Urine Negative NEGATIVE [facility] Comment on above: (Positive cutoff 300 ng/mL) Oxycodone Screen, Ur Negative NEGATIVE [facility] Comment on above: (Positive cutoff 100 ng/mL) Phencyclidine, Urine Negative NEGATIVE [facility] Comment on above: (Positive cutoff 25 ng/mL) Test Information Assay provides medic al screening only. The absence of expected drug(s) and/or metabolite(s) may indicate diluted or adulterated urine, limitations of testing or timing of collection. [facility] [employer] [facility] Comment on above: Testing for legal pu rposes should be confirmed by another method. To request confirmation of test result, please call the lab within 7 days of sample submission. [facility] GROUP B STREP CULTUREon 06-23 S. agalactiae Ag Ql (Unsp spec) Culture Observations: NEGATIVE FOR GROUP B STREPTOCOCCUS. Normal [facility] Comment on above: Performed By: #### [id number] #### [facility] [address] [place] [address] Dr. Valeria Farris POC Glucose Fingerstickon Glucose [Mass/Vol] 116 mg/dL High 65 - 105 mg/dL [facility] Interpretation and review of laboratory results Abnormal [facility] Protein / creatinine ratio, urineon 07-20-2022 Creatinine, Ur 95.9 mg/dL 28.0 - 217.0 mg/dL [facility] Protein (U) [Mass/Vol] 17 mg/dL [facility] Comment on above: No normal range esta blished. Urine Total Protein Creatinine Ratio 0.18 0.00 - 0.20 [facility] T. pallidum Abon 07-20-2022 T. pallidum Ab IA Ql (S) Non-Reactive NONREACTIVE [facility] Comment on above: T. pallidum antibodies are not detected. There is no serological evidence of infection with T. pallidum (early primary syphilis cannot be excluded). Retest in 2-4 weeks if syphilis is clinically suspect. [facility] TYPE AND SCREENon 07-20-2022 ABO/Rh Positive [facility] Arm Band Number BE [id number] [facility] Expiration Date 07/23/2022,2357 [facility] US CHINYERE DOP LEG LTon [...] by: GERARD GONZALEZ Date: 2022-07-19 15:06 Normal [facility] COVID + FLU Quick Testingon 07-18-2022 SARS-CoV-2 (COVID-19) RNA SARANYA+probe Ql (Unsp spec) Negative [employer] Other COVID + FLU Quick Testing Negative [employer] Other Quick Strepon 07-18-2022 S. pyogenes Org specific cx Ql (Throat) Negative [employer] Other Quick Strep [employer] Other US PREG BIOPHY W NON STRESSo [...] by: GERARD GONZALEZ Date: 2022-07-17 15:56 Normal [facility] Brain Natriuretic Peptideon 07-15-2022 Natriuretic peptide B (Bld) [Mass/Vol] pg/mL [facility] - 300 pg/mL [facility] Comment on above: An age-independent cutoff point of 300 pg/ml has a 98% negative predictive value excluding acute heart failure. [facility] Comprehensive metabolic pane mary 07-15-2022 Albumin [Mass/Vol] 3.4 g/dL Low 3.5 - 5.2 g/dL [facility] Albumin/Globulin [Mass ratio] 1.0 {ratio} 1.0 - 2.5 [facility] ALP [Catalytic activity/Vol] 138 U/L High 35 - 104 U/L [facility] ALT [Catalytic activity/Vol] 16 U/L 5 - 33 U/L [facility] [employer] Anion gap [Moles/Vol] 12 mmol/L 9 - 17 mmol/L [facility] AST [Catalytic activity/Vol] 23 U/L NINF - 32 U/L [facility] [employer] Bilirubin [Mass/Vol] mg/dL Low 0.3 - 1 .2 mg/dL [facility] Calcium [Mass/Vol] 8.9 mg/dL 8.6 - 10. 4 mg/dL [facility] Chloride [Moles/Vol] 102 mmol/L 98 - 10 7 mmol/L [facility] CO2 [Moles/Vol] 19 mmol/L Low 20 - 31 mmol/L [facility] Creatinine [Mass/Vol] 0.38 mg/dL Low 0.50 - 0.90 mg/dL [facility] GFR/1.73 sq M.predicted MDRD (S/P/Bld) [Vol rate/Area] - PINF [facility] Comment on above: These results are not [...] 131 mg/dL High 70 - 99 mg/dL [facility] Interpretation and review of laboratory results Abnormal [facility] Potassium [Moles/Vol] 3.5 mmol/L Low 3.7 - 5.3 mmol/L [facility] Protein [Mass/Vol] 6.7 g/dL 6.4 - 8.3 g/dL [facility] Sodium [Moles/Vol] 133 mmol/L Low 135 - 144 mmol/L [facility] Urea nitrogen [Mass/Vol] 9 mg/dL 6 - 20 mg/dL [facility] HIV Screenon 07-15-2022 HIV 1+2 Ab+HIV1 p24 Ag IA Ql Non-Reactive NONREACTIVE [facility] Comment on above: No laboratory eviden ce of HIV infection. If acute HIV infection is suspected, consider testing for HIV-1 RNA. [facility] Protein / Creatinine Ratio, Urineon 07-15-2022 Creatinine, Ur 33.5 mg/dL 28.0 - 217.0 mg/dL [facility] Protein (U) [Mass/Vol] 5 mg/dL [facility] Comment on above: No normal range esta blished. Urine Total Protein Creatinine Ratio 0.15 0.00 - 0.20 [facility] TYPE AND SCREENon 07-15-2022 ABO/Rh Positive [facility] Arm Band Number BE [id number] [facility] Expiration Date 07/18/2022,2359 [facility] Troponinon 07-15-2022 Troponin I.cardiac DL <= 0.01 ng/mL [Mass/Vol] ng/L 0 - 14 ng/L [facility] Comment on above: High Sensitivity Tro ponin values cannot be compared with other Troponin methodologies. [facility] XR CHEST (SINGLE VIEW FRONTA L)on 07-15-2022 No acute process. [facility] EXAMINATION: ONE XRAY VIEW OF THE CHEST 07/15/2022 4:26 pm COMPARISON: None. HISTORY: ORDERING SYSTEM PROVIDED HISTORY: shortness of breath TECHNOLOGIST PROVIDED HISTORY: Concerns for COVID shortness of breath FINDINGS: The lungs are without acute focal process. There is no effusion or pneumothorax. The cardiomediastinal silhouette is without acute process. The osseous structures are without acute process. [facility] Abner Dela Cruz MD [...] without acute process. IMPRESSION: No acute process. 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 Valeria Farris Clarity (U) CLEAR Normal CLEAR [facility] Comment on above: Performed By: #### [id number] #### [facility] [address] [address] [address] Valeria Farris Color (U) LT. YELLOW Normal YELLOW [facility] Comment on above: Performed By: #### [id number] #### [facility] [address] [address] [address] Valeria Farris Glucose Ql (U) Negative Normal NEGATIVE [facility] Comment on above: Performed By: #### [id number] #### [facility] [address] [place] [address] Dr. Valeria Farris Hemoglobin Ql (U) LARGE Abnormal NEGATIVE [facility] Comment on above: Performed By: #### [id number] #### [facility] [address] [place] [address] Dr. Valeria Farris Ketones Ql (U) Negative Normal NEGATIVE [facility] Comment on above: Performed By: #### [id number] #### [facility] [address] [place] [address] Dr. Valeria Farris LEUKOCYTES Negative Normal NEGATIVE [facility] Comment on above: Performed By: #### [id number] #### [facility] [address] [place] [address] Dr. Valeria Farris Nitrite Ql (U) Negative Normal NEGATIVE [facility] Comment on above: Performed By: #### [id number] #### [facility] [address] [place] [address] Dr. Valeria Farris pH (U) 6.5 [pH] Normal 5-9 [facility] Comment on above: Performed By: #### [id number] #### [facility] [address] [place] [address] Dr. Valeria Farris SPEC GRAVITY <=1.005 Abnormal 1.005-<=1.02 5 [facility] Comment on above: Performed By: #### [id number] #### [facility] [address] [place] [address] Dr. Valeria Farris UA PROTEIN Negative Normal NEGATIVE/ TRACE [facility] Comment on above: Performed By: #### [id number] #### [facility] [address] [place] [address] Dr. Valeria Farris UR MICRO IND INDICATED Normal [facility] Comment on above: Performed By: #### [id number] #### [facility] [address] [place] [address] Dr. Valeria Farris Urobilinogen Qn (U) 0.2 {Manolo'U}/dL Normal 0.2 - 1. 0 [facility] Comment on above: Performed By: #### [id number] #### [facility] [address] [place] [address] Dr. Valeria Farris URINE MICROSCOPIC ONLYon BACTERIA NONE SEEN Normal NONE SEEN [facility] Comment on above: Performed By: #### [id number] #### [facility] [address] [place] [address] Dr. Valeria Farris Bacteria identified Cx Nom (U) NOT INDICATED Normal [facility] Comment on above: Performed By: #### [id number] #### [facility] [address] [place] [address] Dr. Valeria Farris CAST NONE SEEN Normal NONE SEEN [facility] Comment on above: Performed By: #### [id number] #### [facility] [address] [place] [address] Dr. Valeria Farris Crystals LM Nom (Urine sed) NONE SEEN Normal NONE SEEN [facility] Comment on above: Performed By: #### [id number] #### [facility] [address] [place] [address] Dr. Valeria Farris Epithelial cells LM Ql (Urine sed) FEW Abnormal NONE SEEN /RARE [facility] Comment on above: Performed By: #### [id number] #### [facility] [address] [place] [address] Dr. Valeria Farris MUCOUS NONE SEEN Normal NONE SEEN [facility] Comment on above: Performed By: #### [id number] #### [facility] [address] [place] [address] Dr. Valeria Farris RBC 5-10 Abnormal 0-2 [facility] Comment on above: Performed By: #### [id number] #### [facility] [address] [place] [address] Dr. Valeria Farris WBC 0-2 Abnormal NONE SEEN [facility] Comment on above: Performed By: #### [id number] #### [facility] [address] [place] [address] Dr. Valeria Farris No Panel Informationon 06-29 [facility] T4, Freeon 06-29-2022 Free T4 [Mass/Vol] 0.82 ng/dL Low 0.93 - 1. 70 ng/dL [facility] Interpretation and review of laboratory results Abnormal [facility] TSHon 06-29-2022 TSH Qn 2.16 m[IU]/L [facility] US PREG BIOPHY W NON STRESSo n [...] by: ALINE GALICIA Date: 2022-06-26 07:50 Normal [facility] US PREG BIOPHY W NON STRESSo n [...] GERARD GONZALEZ Date: 2022-06-19 15:28 Normal [facility] CREATININE CLEARon 3 BODY SURF AREA 2.35 Normal [facility] Comment on above: Performed By: #### DAPHNE SUN #### [facility] [address] [address] [address] Valeria MAST CLEARANCE 128.94 ml/min Critically high 75.00-115.00 [facility] Comment on above: Performed By: #### DAPHNE SUN #### [facility] [address] [address] [address] Valeria Farris CREA, 24 HR UR 882.73 mg/24 hr Normal 800.00-1,8 00 .00 [facility] Comment on above: Performed By: #### U DAPHNE LANDEROS #### [facility] [address] [place] [address] Dr. Valeria Farris Creatinine [Mass/Vol] 0.35 mg/dL Critically low 0.55-1.02 [facility] Comment on above: Performed By: #### U DAPHNE LANDEROS #### [facility] [address] [place] [address] Dr. Valeria Farris URINE CREAT 21.53 mg/dL Normal 20.00-300.00 [facility] Comment on above: Performed By: #### U DAPHNE LANDEROS #### [facility] [address] [place] [address] Dr. Valeria Farris PROTEIN 24HR URINEon 023 T PROT, 24 HR UR 241.9 mg/24 hr Critically high <=149.1 [facility] Comment on above: Performed By: #### P [id number] #### [facility] [address] [place] [address] Dr. Valeria Farrsi UR PROT 5.9 mg/dL Normal <=11.9 [facility] Comment on above: Performed By: #### P [id number] #### [facility] [address] [place] [address] Dr. Valeria Farris UR TOT VOL 4100 ml/24 HR Normal [facility] Comment on above: Performed By: #### P [id number] #### [facility] [address] [place] [address] Dr. Valeria Farris Performed By: #### U DAPHNE LANDEROS #### [facility] [address] [place] [address] Dr. Valeria Farris CBC AUTO DIFFon 06-17-2022 BASO # 0.0 103/ul Normal 0.0-0.1 [facility] Comment on above: Performed By: #### G LU1HR #### [facility] [address] [address] [address] Valeria Farris Basophils/100 WBC (Bld) 0.4 % Normal 0.2-2.0 [facility] Comment on above: Performed By: #### G LU1HR #### [facility] [address] [place] [address] Dr. Valeria Farris EO # 0.2 103/ul Normal 0.0-0.7 [facility] Comment on above: Performed By: #### G LU1HR #### [facility] [address] [place] [address] Dr. Valeria Farris Eosinophils/100 WBC (Bld) 2.0 % Normal 0.9-7.0 [facility] Comment on above: Performed By: #### G LU1HR #### [facility] [address] [place] [address] Dr. Valeria Farris Erythrocyte distribution width (RBC) [Ratio] 13.3 % Normal 11.0-15.0 [facility] Comment on above: Performed By: #### G LU1HR #### [facility] [address] [place] [address] Dr. Valeria Farris Hematocrit (Bld) [Volume fraction] 31.8 % Critically low 36.0-48.0 [facility] Comment on above: Performed By: #### G LU1HR #### [facility] [address] [place] [address] Dr. Valeria Farris Hemoglobin (Bld) [Mass/Vol] 10.8 g/dL Critically low 12.0-16.0 [facility] Comment on above: Performed By: #### G LU1HR #### [facility] [address] [place] [address] Dr. Valeria Farris IG # 0.09 10e3/ul Critically high 0.00-0.03 [facility] Comment on above: Performed By: #### G LU1HR #### [facility] [address] [place] [address] Dr. Valeria Farris IG % 0.8 % Critically high 0.0-0.5 [facility] Comment on above: Performed By: #### G LU1HR #### [facility] [address] [address] [address] Valeria Farris LYMPH # 2.2 103/ul Normal 1.2-3.8 [facility] Comment on above: Performed By: #### G LU1HR #### [facility] [address] [address] [address] Valeria Farris Lymphocytes/100 WBC (Bld) 20.0 % Critically low 20.5-60.0 [facility] Comment on above: Performed By: #### G LU1HR #### [facility] [address] [address] [address] Valeria Farris MANUAL DIFF REQ NO Normal [facility] Comment on above: Performed By: #### G LU1HR #### [facility] [address] [place] [address] Dr. Valeria Farris MCH (RBC) [Entitic mass] 28.4 pg Normal 26.7-34.0 [facility] Comment on above: Performed By: #### G LU1HR #### [facility] [address] [place] [address] Dr. Valeria Farris MCHC (RBC) [Mass/Vol] 34.0 g/dL Normal 29.9-35.2 [facility] Comment on above: Performed By: #### G LU1HR #### [facility] [address] [place] [address] Dr. Valeria Farris MCV (RBC) [Entitic vol] 83.7 fL Normal 81.0-99.0 [facility] Comment on above: Performed By: #### G LU1HR #### [facility] [address] [address] [address] Valeria Farris MONO # 0.9 103/ul Critically high 0.3-0.8 [facility] Comment on above: Performed By: #### G LU1HR #### [facility] [address] [place] [address] Dr. Valeria Farris Monocytes/100 WBC (Bld) 7.9 % Normal 1.7-12.0 [facility] Comment on above: Performed By: #### G LU1HR #### [facility] [address] [place] [address] Dr. Valeria Farris NEUT # 7.7 103/ul Critically high 1.4-6.5 [facility] Comment on above: Performed By: #### G [id number] #### [facility] [address] [place] [address] Dr. Valeria Farris Neutrophils/100 WBC (Bld) 68.9 % Normal 43.0-75.0 [facility] Comment on above: Performed By: #### G LU1HR #### [facility] [address] [place] [address] Dr. Valeria Farris Platelet mean volume (Bld) [Entitic vol] 10.7 fL Normal 9.5-13.5 [facility] Comment on above: Performed By: #### G LU1HR #### [facility] [address] [place] [address] Dr. Valeria Farris PLT 195 103/ul Normal 150-450 [facility] Comment on above: Performed By: #### G LU1HR #### [facility] [address] [place] [address] Dr. Valeria Farris RBC 3.80 106/ul Critically low 4.20-5.40 [facility] Comment on above: Performed By: #### G LU1HR #### [facility] [address] [place] [address] Dr. Valeria Farris WBC 11.2 103/ul Critically high 4.0-11.0 [facility] Comment on above: Performed By: #### G LU1HR #### [facility] [address] [place] [address] Dr. Valeria Farris LDHon 06-17-2022 LDH 230 U/L Normal 81-234 [facility] Comment on above: Performed By: #### P [id number] #### [facility] [address] [place] [address] Dr. Valeria Farris PROF 14(COMP METB)on 023 Albumin [Mass/Vol] 2.6 g/dL Critically low 3.4-5.0 [facility] Comment on above: Performed By: #### P [id number] #### [facility] [address] [place] [address] Dr. Valeria Farris Albumin/Globulin [Mass ratio] 0.6 {ratio} Normal [facility] Comment on above: Performed By: #### P [id number] #### [facility] [address] [place] [address] [address] Valeria Farris ALP [Catalytic activity/Vol] 112 U/L Normal 46-116 [facility] Comment on above: Performed By: #### P [id number] #### [facility] [address] [place] [address] Dr. Valeria Farris ALT [Catalytic activity/Vol] 18 U/L Normal 14-59 [facility] Comment on above: Performed By: #### P [id number] #### [facility] [address] [place] [address] Dr. Valeria Farris Anion gap [Moles/Vol] 13.1 mmol/L Normal [facility] Comment on above: Performed By: #### P [id number] #### [facility] [address] [place] [address] Dr. Valeria Farris AST [Catalytic activity/Vol] 22 U/L Normal 15-37 [facility] Comment on above: Performed By: #### P [id number] #### [facility] [address] [place] [address] Dr. Valeria Farris Bilirubin [Mass/Vol] 0.2 mg/dL Normal 0.2-1.0 [facility] Comment on above: Performed By: #### P [id number] #### [facility] [address] [place] [address] Dr. Valeria Farris Calcium [Mass/Vol] 9.1 mg/dL Normal 8.5-10.1 [facility] Comment on above: Performed By: #### P [id number] #### [facility] [address] [place] [address] Dr. Valeria Farris Chloride [Moles/Vol] 103 mmol/L Normal 98-107 [facility] Comment on above: Performed By: #### P [id number] #### [facility] [address] [place] [address] [address] Valeria Farris CO2 [Moles/Vol] 25.8 mmol/L Normal 21.0-32.0 [facility] Comment on above: Performed By: #### P [id number] #### [facility] [address] [place] [address] [address] Valeria Farris Creatinine [Mass/Vol] 0.35 mg/dL Critically low 0.55-1.02 [facility] Comment on above: Performed By: #### P [id number] #### [facility] [address] [place] [address] Dr. Valeria Farris EGFR-AF SERBIAN >60 Normal >=60 [facility] Comment on above: Performed By: #### P [id number] #### [facility] [address] [place] [address] Dr. Valeria Farris EGFR-NON AF SERBIAN >60 Normal >=60 [facility] Comment on above: Performed By: #### P [id number] #### [facility] [address] [place] [address] [address] Valeria Farris Globulin (S) [Mass/Vol] 4.2 g/dL Normal [facility] Comment on above: Performed By: #### P [id number] #### [facility] [address] [place] [address] [address] Valeria Farris Glucose [Mass/Vol] 80 mg/dL Normal 74-106 [facility] Comment on above: Performed By: #### P [id number] #### [facility] [address] [place] [address] [address] Valeria Farris Potassium [Moles/Vol] 3.9 mmol/L Normal 3.5-5.1 [facility] Comment on above: Performed By: #### P ROT24U #### [facility] [address] [place] [address] [address] Valeria Farris Protein [Mass/Vol] 6.8 g/dL Normal 6.4-8.2 [facility] Comment on above: Performed By: #### P [id number] #### [facility] [address] [place] [address] Dr. Valeria Farris Sodium [Moles/Vol] 138 mmol/L Normal 136-145 [facility] Comment on above: Performed By: #### P [id number] #### [facility] [address] [place] [address] Dr. Valeria Farris Urea nitrogen [Mass/Vol] 10.0 mg/dL Normal 7.0-18.0 [facility] Comment on above: Performed By: #### P [id number] #### [facility] [address] [place] [address] Dr. Valeria Farris Urea nitrogen/Creatinine [Mass ratio] 28.6 mg/mg Normal [facility] Comment on above: Performed By: #### P [id number] #### [facility] [address] [place] [address] Dr. Valeria Farris PTTon 06-17-2022 aPTT Coag (Bld) [Time] 26.4 s Normal 22.3-36.2 [facility] Comment on above: Performed By: #### P REGQNT #### [facility] [address] [place] [address] Dr. Valeria Farris UA (CLEAN/CATCH) PONY CYLINDER PRESS OPERATOR/MICRO I F IND.on 06-17-2022 Bilirubin Ql (U) Negative Normal NEGATIVE [facility] Comment on above: Performed By: #### P REGQNT #### [facility] [address] [place] [address] Dr. Valeria Farris Clarity (U) CLEAR Normal CLEAR [facility] Comment on above: Performed By: #### P REGQNT #### [facility] [address] [place] [address] Dr. Valeria Farris Color (U) LT. YELLOW Normal YELLOW [facility] Comment on above: Performed By: #### P REGQNT #### [facility] [address] [place] [address] Dr. Valeria Farris Glucose Ql (U) Negative Normal NEGATIVE [facility] Comment on above: Performed By: #### P REGQNT #### [facility] [address] [place] [address] [address] Valeria Farris Hemoglobin Ql (U) Negative Normal NEGATIVE [facility] Comment on above: Performed By: #### P REGQNT #### [facility] [address] [place] [address] Dr. Valeria Farris Ketones Ql (U) Negative Normal NEGATIVE [facility] Comment on above: Performed By: #### P REGQNT #### [facility] [address] [place] [address] [address] Valeria Farris LEUKOCYTES Negative Normal NEGATIVE [facility] Comment on above: Performed By: #### P REGQNT #### [facility] [address] [place] [address] Dr. Valeria Farris Nitrite Ql (U) Negative Normal NEGATIVE [facility] Comment on above: Performed By: #### P REGQNT #### [facility] [address] [place] [address] Dr. Valeria Farris pH (U) 6.5 [pH] Normal 5-9 [facility] Comment on above: Performed By: #### P REGQNT #### [facility] [address] [place] [address] Dr. Valeria Farris SPEC GRAVITY 1.010 Normal 1.005-<=1.02 5 [facility] Comment on above: Performed By: #### P REGQNT #### [facility] [address] [place] [address] Dr. Valeria Farris UA PROTEIN Negative Normal NEGATIVE/ TRACE [facility] Comment on above: Performed By: #### P REGQNT #### [facility] [address] [place] [address] Dr. Valeria Farris UR MICRO IND NOT INDICATED Normal [facility] Comment on above: Performed By: #### P REGQNT #### [facility] [address] [place] [address] Dr. Valeria Farris Urobilinogen Qn (U) 0.2 {Manolo'U}/dL Normal 0.2 - 1. 0 [facility] Comment on above: Performed By: #### P REGQNT #### [facility] [address] [place] [address] [address] Valeria Farris URIC ACID SERUMon 06-17-2022 Urate [Mass/Vol] 3.3 mg/dL Normal 2.6-6.0 [facility] Comment on above: Performed By: #### P [id number] #### [facility] [address] [place] [address] [address] Valeria Farris PAP ACOG PANEL 2: 30 to 65on 05-29-2022 . . Normal [facility] Comment on above: Result Comment: Perf ormed at: WB Performed By: #### [id number] #### [facility] [address] [place] [address] Dr. Valeria Farris Age Gdln ACOG Testing 30-65 Normal [facility] Comment on above: Performed By: #### [id number] #### [facility] [address] [place] [address] Dr. Valeria Farris DIAGNOSIS: Comment Normal [facility] Comment on above: Result Comment: NEGA TIVE FOR INTRAEPITHELIAL LESION OR MALIGNANCY. Performed at: WB Performed By: #### [id number] #### [facility] [address] [place] [address] Dr. Valeria Farris HPV Aptima Negative Normal Negative [facility] Comment on above: Result Comment: This nucleic acid amplification test detects fourteen high-risk HPV types (16,18,31,33,35,39,45,51,52,56,58,59,66,68) without differentiation. Performed at: =G Performed By: #### [id number] #### [facility] [address] [place] [address] Dr. Valeria Farris HPV Genotype Reflex Comment Normal [facility] Comment on above: Result Comment: Crit eria not met, HPV Genotype not performed. Performed at: WB Performed By: #### [id number] #### [facility] [address] [place] [address] Dr. Valeria Farris Methodology: Comment Normal [facility] Comment on above: Result Comment: This liquid based ThinPrep(R) pap test was screened with the use of an image guided system. Performed at: WB Performed By: #### [id number] #### [facility] [address] [place] [address] Dr. Valeria Farris Note: Comment Normal [facility] Comment on above: Result Comment: The Pap smear is a screening test designed to aid in the detection of premalignant and malignant conditions of the uterine cervix. It is not a diagnostic procedure and should not be used as the sole means of detecting cervical cancer. Both false-positive and false-negative reports do occur. . Performed at: WB Performed By: #### [id number] #### [facility] [address] [place] [address] Dr. Valeria Farris Performed by: Comment Normal [facility] Comment on above: Result Comment: Jaye Simmons, Superintendent Logging (ASCP) Performed at: WB Performed By: #### [id number] #### [facility] [address] [place] [address] Dr. Valeria Farris Specimen adequacy: Comment Normal [facility] Comment on above: Result Comment: Sati sfactory for evaluation. Performed at: WB Performed By: #### [id number] #### [facility] [address] [place] [address] Dr. Valeria Farris POINT OF CARE GLUCOSEon Glucose [Mass/Vol] 122 mg/dL Critically high 74-106 [facility] Comment on above: Performed By: #### U ACSIND UMICRO #### [facility] [address] [place] [address] Dr. Valeria Farris UA (CLEAN/CATCH) PONY CYLINDER PRESS OPERATOR/MICRO I F IND.on 05-29-2022 Bilirubin Ql (U) Negative Normal NEGATIVE [facility] Comment on above: Performed By: #### U ACSIND, UMICRO #### [facility] [address] [place] [address] Dr. Valeria Farris Clarity (U) CLEAR Normal CLEAR [facility] Comment on above: Performed By: #### U ACSIND, UMICRO #### [facility] [address] [place] [address] [address] Valeria Farris Color (U) LT. YELLOW Normal YELLOW [facility] Comment on above: Performed By: #### U ACSIND, UMICRO #### [facility] [address] [place] [address] [address] Valeria Farris Glucose Ql (U) Negative Normal NEGATIVE [facility] Comment on above: Performed By: #### U ACSIND, UMICRO #### [facility] [address] [place] [address] [address] Valeria Farris Hemoglobin Ql (U) TRACE-INTACT Abnormal NEGATIVE [facility] Comment on above: Performed By: #### U ACSIND, UMICRO #### [facility] [address] [place] [address] Dr. Valeria Farris Ketones Ql (U) Negative Normal NEGATIVE [facility] Comment on above: Performed By: #### U ACSTRUPTI, UMICRO #### [facility] [address] [place] [address] Dr. Valeria Farris LEUKOCYTES Negative Normal NEGATIVE [facility] Comment on above: Performed By: #### U ACSTRUPTI, UMICRO #### [facility] [address] [place] [address] Dr. Valeria Farris Nitrite Ql (U) Negative Normal NEGATIVE [facility] Comment on above: Performed By: #### U ACSTRUPTI UMICRO #### [facility] [address] [place] [address] Dr. Valeria Farris pH (U) 5.5 [pH] Normal 5-9 [facility] Comment on above: Performed By: #### U ACSTRUPTI, UMICRO #### [facility] [address] [place] [address] Dr. Valeria Farris SPEC GRAVITY 1.010 Normal 1.005-<=1.02 5 [facility] Comment on above: Performed By: #### U ACSTRUPTI, UMICRO #### [facility] [address] [place] [address] Dr. Valeria Farris UA PROTEIN Negative Normal NEGATIVE/ TRACE [facility] Comment on above: Performed By: #### U ACSIND, UMICRO #### [facility] [address] [place] [address] Dr. Valeria Farris UR MICRO IND INDICATED Normal [facility] Comment on above: Performed By: #### U ACSIND, UMICRO #### [facility] [address] [place] [address] Dr. Valeria Farris Urobilinogen Qn (U) 0.2 {Manolo'U}/dL Normal 0.2 - 1. 0 [facility] Comment on above: Performed By: #### U ACSIND, UMICRO #### [facility] [address] [place] [address] Dr. Valeria Farris URINE MICROSCOPIC ONLYon BACTERIA NONE SEEN Normal NONE SEEN [facility] Comment on above: Performed By: #### U ACSIND, UMICRO #### [facility] [address] [place] [address] Dr. Valeria Farris Bacteria identified Cx Nom (U) NOT INDICATED Normal [facility] Comment on above: Performed By: #### U ACSIND, UMICRO #### [facility] [address] [place] [address] Dr. Valeria Farris CAST NONE SEEN Normal NONE SEEN [facility] Comment on above: Performed By: #### U ACSIND, UMICRO #### [facility] [address] [place] [address] Dr. Valeria Farris Crystals LM Nom (Urine sed) NONE SEEN Normal NONE SEEN [facility] Comment on above: Performed By: #### U ACSIND, UMICRO #### [facility] [address] [place] [address] Dr. Valeria Farris Epithelial cells LM Ql (Urine sed) FEW Abnormal NONE SEEN /RARE [facility] Comment on above: Performed By: #### U ACSIND, UMICRO #### [facility] [address] [place] [address] Dr. Valeria Farris MUCOUS NONE SEEN Normal NONE SEEN [facility] Comment on above: Performed By: #### U ACSTRUPTI, UMICRO #### [facility] [address] [place] [address] Dr. Valeria Farris RBC 0-2 Normal 0-2 [facility] Comment on above: Performed By: #### U ACSTRUPTI, UMICRO #### [facility] [address] [place] [address] Dr. Valeria Farris WBC NONE SEEN Normal NONE SEEN [facility] Comment on above: Performed By: #### U ACSTRUPTI, ICRO #### [facility] [address] [place] [address] Dr. Valeria Farris CHLAMYDIA/GONOCOCCUS SARANYA ( AB/URINE/PAPon 05-26-2022 Chlamydia trachomatis, SARANYA Negative Normal Negative [facility] Comment on above: Performed By: #### [id number] #### [facility] [address] [place] [address] Dr. Valeria Farris Neisseria gonorrhoeae, SARANYA Negative Normal Negative [facility] Comment on above: Performed By: #### [id number] #### [facility] [address] [place] [address] Dr. Valeria Farris AMYLASEon 05-25-2022 Amylase [Catalytic activity/Vol] 30 U/L Normal 25-115 [facility] Comment on above: Performed By: #### P [id number] #### [facility] [address] [place] [address] Dr. Valeria Farris CARDIAC VERNON 3-6on 3 CK [Catalytic activity/Vol] 119 U/L Normal 26-192 [facility] Comment on above: Performed By: #### P ROT24U #### [facility] [address] [place] [address] Dr. Valeria Farris CK.MB [Mass/Vol] ng/mL Normal <=3.60 [facility] Comment on above: Performed By: #### P ROT24U #### [facility] [address] [place] [address] Dr. Valeria Farris HSTROP <4.0 Normal 4.0-51.3 [facility] Comment on above: Result Comment: CUT- OFF POINTS HAVE BEEN ESTABLISHED BASED ON THE FOURTH UNIVERSAL DEFINITIONS OF MYOCARDIAL INFARCTION. THE UPPER REFERENCE LIMIT (URL) OF TROPONIN, DEFINED THE 99TH PERCENTILE OF cTnI DISTRIBUTION IN A REFERENCE POPULATION, HAS BEEN CONFIRMED THE DECISION THRESHOLD FOR [place] DIAGNOSIS. Performed By: #### P [id number] #### [facility] [address] [place] [address] Dr. Valeria Farris CARDIAC VERNON ADMITon 023 CK [Catalytic activity/Vol] 121 U/L Normal 26-192 [facility] Comment on above: Performed By: #### P ROT24U #### [facility] [address] [place] [address] Dr. Valeria Farris CK.MB [Mass/Vol] 0.51 ng/mL Normal <=3.60 [facility] Comment on above: Performed By: #### P ROT24U #### [facility] [address] [place] [address] Dr. Valeria Farris HSTROP 4.1 pg/mL Normal 4.0-51.3 [facility] Comment on above: Result Comment: CUT- OFF POINTS HAVE BEEN ESTABLISHED BASED ON THE FOURTH UNIVERSAL DEFINITIONS OF MYOCARDIAL INFARCTION. THE UPPER REFERENCE LIMIT (URL) OF TROPONIN, DEFINED THE 99TH PERCENTILE OF cTnI DISTRIBUTION IN A REFERENCE POPULATION, HAS BEEN CONFIRMED THE DECISION THRESHOLD FOR [place] DIAGNOSIS. Performed By: #### P [id number] #### [facility] [address] [place] [address] Dr. Valeria Farris MINI 19 ng/mL Normal 9-82 [facility] Comment on above: Performed By: #### P [id number] #### [facility] [address] [place] [address] Dr. Valeria Farris CBC AUTO DIFFon 05-25-2022 BASO # 0.0 103/ul Normal 0.0-0.1 [facility] Comment on above: Performed By: #### [id number] #### [facility] [address] [place] [address] Dr. Valeria Farris Basophils/100 WBC (Bld) 0.2 % Normal 0.2-2.0 [facility] Comment on above: Performed By: #### 4 [id number] #### [facility] [address] [place] [address] Dr. Valeria Farris EO # 0.1 103/ul Normal 0.0-0.7 [facility] Comment on above: Performed By: #### [id number] #### [facility] [address] [place] [address] Dr. Valeria Farris Eosinophils/100 WBC (Bld) 0.8 % Critically low 0.9-7.0 [facility] Comment on above: Performed By: #### [id number] #### [facility] [address] [place] [address] Dr. Valeria Farris Erythrocyte distribution width (RBC) [Ratio] 13.5 % Normal 11.0-15.0 [facility] Comment on above: Performed By: #### 4 [id number] #### [facility] [address] [place] [address] Dr. Valeria Farris Hematocrit (Bld) [Volume fraction] 30.4 % Critically low 36.0-48.0 [facility] Comment on above: Performed By: #### [id number] #### [facility] [address] [place] [address] Dr. Valeria Farris Hemoglobin (Bld) [Mass/Vol] 9.8 g/dL Critically low 12.0-16.0 [facility] Comment on above: Performed By: #### [id number] #### [facility] [address] [place] [address] Dr. Valeria Farris IG # 0.21 10e3/ul Critically high 0.00-0.03 [facility] Comment on above: Performed By: #### [id number] #### [facility] [address] [place] [address] Dr. Valeria Farris IG % 1.6 % Critically high 0.0-0.5 [facility] Comment on above: Performed By: #### [id number] #### [facility] [address] [place] [address] Dr. Valeria Farris LYMPH # 2.8 103/ul Normal 1.2-3.8 [facility] Comment on above: Performed By: #### [id number] #### [facility] [address] [place] [address] Dr. Valeria Farris Lymphocytes/100 WBC (Bld) 21.3 % Normal 20.5-60.0 [facility] Comment on above: Performed By: #### [id number] #### [facility] [address] [place] [address] Dr. Valeria Farris MANUAL DIFF REQ NO Normal [facility] Comment on above: Performed By: #### 4 [id number] #### [facility] [address] [place] [address] Dr. Valeria Farris MCH (RBC) [Entitic mass] 28.2 pg Normal 26.7-34.0 [facility] Comment on above: Performed By: #### [id number] #### [facility] [address] [place] [address] Dr. Valeria Farris MCHC (RBC) [Mass/Vol] 32.2 g/dL Normal 29.9-35.2 [facility] Comment on above: Performed By: #### 4 [id number] #### [facility] [address] [place] [address] Dr. Valeria Farris MCV (RBC) [Entitic vol] 87.6 fL Normal 81.0-99.0 [facility] Comment on above: Performed By: #### 4 [id number] #### [facility] [address] [place] [address] Dr. Valeria Farris MONO # 0.9 103/ul Critically high 0.3-0.8 [facility] Comment on above: Performed By: #### 4 [id number] #### [facility] [address] [place] [address] Dr. Valeria Farris Monocytes/100 WBC (Bld) 6.8 % Normal 1.7-12.0 [facility] Comment on above: Performed By: #### [id number] #### [facility] [address] [place] [address] Dr. Valeria Farris NEUT # 9.0 103/ul Critically high 1.4-6.5 [facility] Comment on above: Performed By: #### 4 [id number] #### [facility] [address] [place] [address] Dr. Valeria Farris Neutrophils/100 WBC (Bld) 69.3 % Normal 43.0-75.0 [facility] Comment on above: Performed By: #### [id number] #### [facility] [address] [place] [address] Dr. Valeria Farris Platelet mean volume (Bld) [Entitic vol] 10.5 fL Normal 9.5-13.5 [facility] Comment on above: Performed By: #### 4 [id number] #### [facility] [address] [place] [address] Dr. Valeria Farris PLT 187 103/ul Normal 150-450 [facility] Comment on above: Performed By: #### [id number] #### [facility] [address] [place] [address] Dr. Valeria Farris RBC 3.47 106/ul Critically low 4.20-5.40 [facility] Comment on above: Performed By: #### [id number] #### [facility] [address] [place] [address] Dr. Valeria Farris WBC 13.0 103/ul Critically high 4.0-11.0 [facility] Comment on above: Performed By: #### [id number] #### [facility] [address] [place] [address] Dr. Valeria Farris CTA CHEST WO W [...] by: Daryl LOPEZ Date: 2022-05-25 01:55 Normal [facility] CULTURE URINEon 05-25-2022 CULTURE URINE Culture Observations : HEAVY GROWTH OF MIXED GENITAL IRO. NO POTENTIAL PATHOGENS SEEN. Normal [facility] Comment on above: Performed By: #### [id number] #### [facility] [address] [place] [address] Dr. Valeria Farris LIPASEon 05-25-2022 Lipase [Catalytic activity/Vol] 54.0 U/L Critically low 73.0-393.0 [facility] Comment on above: Performed By: #### P [id number] #### [facility] [address] [place] [address] Dr. Valeria Farris PROF 14(COMP METB)on 023 Albumin [Mass/Vol] 2.5 g/dL Critically low 3.4-5.0 [facility] Comment on above: Performed By: #### P [id number] #### [facility] [address] [place] [address] Dr. Valeria Farris Albumin/Globulin [Mass ratio] 0.6 {ratio} Normal [facility] Comment on above: Performed By: #### P [id number] #### [facility] [address] [place] [address] Dr. Valeria Farris ALP [Catalytic activity/Vol] 97 U/L Normal 46-116 [facility] Comment on above: Performed By: #### P [id number] #### [facility] [address] [address] [address] Valeria Farris ALT [Catalytic activity/Vol] 25 U/L Normal 14-59 [facility] Comment on above: Performed By: #### P [id number] #### [facility] [address] [address] [address] Valeria Farris Anion gap [Moles/Vol] 14.2 mmol/L Normal [facility] Comment on above: Performed By: #### P [id number] #### [facility] [address] [address] [address] Valeria Farris AST [Catalytic activity/Vol] 12 U/L Critically low 15-37 [facility] Comment on above: Performed By: #### P [id number] #### [facility] [address] [address] [address] Valeria Farris Bilirubin [Mass/Vol] 0.2 mg/dL Normal 0.2-1.0 [facility] Comment on above: Performed By: #### P [id number] #### [facility] [address] [address] [address] Valeria Farris Calcium [Mass/Vol] 8.5 mg/dL Normal 8.5-10.1 [facility] Comment on above: Performed By: #### P [id number] #### [facility] [address] [address] [address] Valeria Farris Chloride [Moles/Vol] 103 mmol/L Normal 98-107 [facility] Comment on above: Performed By: #### P [id number] #### [facility] [address] [address] [address] Valeria Farris CO2 [Moles/Vol] 23.0 mmol/L Normal 21.0-32.0 [facility] Comment on above: Performed By: #### P [id number] #### [facility] [address] [address] [address] Valeria Farris Creatinine [Mass/Vol] 0.39 mg/dL Critically low 0.55-1.02 [facility] Comment on above: Performed By: #### P ROT24U #### [facility] [address] [address] [address] Valeria Farris EGFR-AF SERBIAN >60 Normal >=60 [facility] Comment on above: Performed By: #### P [id number] #### [facility] [address] [address] [address] Valeria Farris EGFR-NON AF SERBIAN >60 Normal >=60 [facility] Comment on above: Performed By: #### P [id number] #### [facility] [address] [address] [address] Valeria Farris Globulin (S) [Mass/Vol] 4.0 g/dL Normal [facility] Comment on above: Performed By: #### P [id number] #### [facility] [address] [address] [address] Valeria Farris Glucose [Mass/Vol] 113 mg/dL Critically high 74-106 [facility] Comment on above: Performed By: #### P [id number] #### [facility] [address] [address] [address] Valeria Farris Potassium [Moles/Vol] 3.2 mmol/L Critically low 3.5-5.1 [facility] Comment on above: Performed By: #### P [id number] #### [facility] [address] [place] [address] Dr. Valeria Farris Protein [Mass/Vol] 6.5 g/dL Normal 6.4-8.2 [facility] Comment on above: Performed By: #### P [id number] #### [facility] [address] [address] [address] Valeria Fraris Sodium [Moles/Vol] 137 mmol/L Normal 136-145 [facility] Comment on above: Performed By: #### P [id number] #### [facility] [address] [address] [address] Valeria Farris Urea nitrogen [Mass/Vol] 8.0 mg/dL Normal 7.0-18.0 [facility] Comment on above: Performed By: #### P [id number] #### [facility] [address] [place] [address] Dr. Valeria Farris Urea nitrogen/Creatinine [Mass ratio] 20.5 mg/mg Normal [facility] Comment on above: Performed By: #### P [id number] #### [facility] [address] [place] [address] Dr. Valeria Farris UA (CLEAN/CATCH) PONY CYLINDER PRESS OPERATOR/MICRO I F IND.on 05-25-2022 Bilirubin Ql (U) Negative Normal NEGATIVE [facility] Comment on above: Performed By: #### G LU1HR #### [facility] [address] [place] [address] Dr. Valeria Farris Clarity (U) CLEAR Normal CLEAR [facility] Comment on above: Performed By: #### G LU1HR #### [facility] [address] [place] [address] Dr. Valeria Farris Color (U) YELLOW Normal YELLOW [facility] Comment on above: Performed By: #### G LU1HR #### [facility] [address] [place] [address] Dr. Valeria Farris Glucose Ql (U) Negative Normal NEGATIVE [facility] Comment on above: Performed By: #### G LU1HR #### [facility] [address] [place] [address] Dr. Valeria Farris Hemoglobin Ql (U) TRACE-INTACT Abnormal NEGATIVE [facility] Comment on above: Performed By: #### G LU1HR #### [facility] [address] [place] [address] Dr. Valeria Farris Ketones Ql (U) TRACE Abnormal NEGATIVE [facility] Comment on above: Performed By: #### G LU1HR #### [facility] [address] [place] [address] Dr. Valeria Farris LEUKOCYTES Negative Normal NEGATIVE [facility] Comment on above: Performed By: #### G LU1HR #### [facility] [address] [place] [address] Dr. Valeria Farris Nitrite Ql (U) Negative Normal NEGATIVE [facility] Comment on above: Performed By: #### G LU1HR #### [facility] [address] [place] [address] Dr. Valeria Farris pH (U) 6.0 [pH] Normal 5-9 [facility] Comment on above: Performed By: #### G LU1HR #### [facility] [address] [place] [address] Dr. Valeria Farris SPEC GRAVITY >=1.030 Abnormal 1.005-<=1.02 5 [facility] Comment on above: Performed By: #### G LU1HR #### [facility] [address] [place] [address] Dr. Valeria Farris UA PROTEIN Negative Normal NEGATIVE/ TRACE [facility] Comment on above: Performed By: #### G LU1HR #### [facility] [address] [place] [address] Dr. Valeria Farris UR MICRO IND INDICATED Normal [facility] Comment on above: Performed By: #### G LU1HR #### [facility] [address] [place] [address] Dr. Valeria Farris Urobilinogen Qn (U) 0.2 {Manolo'U}/dL Normal 0.2 - 1. 0 [facility] Comment on above: Performed By: #### G LU1HR #### [facility] [address] [place] [address] Dr. Valeria Farris URINE MICROSCOPIC ONLYon BACTERIA SMALL Abnormal NONE SEEN [facility] Comment on above: Performed By: #### G LU1HR #### [facility] [address] [place] [address] Dr. Valeria Farris Bacteria identified Cx Nom (U) INDICATED Normal [facility] Comment on above: Performed By: #### G LU1HR #### [facility] [address] [place] [address] Dr. Valeria Farris CA OX CRYSTALS FEW Normal [facility] Comment on above: Performed By: #### G LU1HR #### [facility] [address] [place] [address] Dr. Valeria Farris CAST NONE SEEN Normal NONE SEEN [facility] Comment on above: Performed By: #### G LU1HR #### [facility] [address] [place] [address] Dr. Valeria Farris Crystals LM Nom (Urine sed) SEEN Abnormal NONE SEEN [facility] Comment on above: Performed By: #### G LU1HR #### [facility] [address] [place] [address] Dr. Valeria Farris Epithelial cells LM Ql (Urine sed) MANY Abnormal NONE SEEN /RARE [facility] Comment on above: Performed By: #### G LU1HR #### [facility] [address] [place] [address] Dr. Valeria Farris MUCOUS TRACE Abnormal NONE SEEN [facility] Comment on above: Performed By: #### G LU1HR #### [facility] [address] [place] [address] Dr. Valeria Farris RBC 2-5 Abnormal 0-2 [facility] Comment on above: Performed By: #### G LU1HR #### [facility] [address] [place] [address] Dr. Valeria Farris WBC NONE SEEN Normal NONE SEEN [facility] Comment on above: Performed By: #### G LU1HR #### [facility] [address] [place] [address] Dr. Valeria Farris VAGINITIS/VAGINOSIS DNA PROB Sam 05-25-2022 Litzy species Negative Normal Negative [facility] Comment on above: Performed By: #### P REGQNT #### [facility] [address] [place] [address] Dr. Valeria Farris Gardnerella vaginalis Positive Abnormal Negative [facility] Comment on above: Performed By: #### P REGQNT #### [facility] [address] [place] [address] Dr. Valeria Farris Trichomonas vaginalis Negative Normal Negative [facility] Comment on above: Performed By: #### P REGQNT #### [facility] [address] [place] [address] Dr. Valeria Farris UA (CLEAN/CATCH) PONY CYLINDER PRESS OPERATOR/MICRO I F IND.on 05-04-2022 Bilirubin Ql (U) Negative Normal NEGATIVE [facility] Comment on above: Performed By: #### P REGQNT #### [facility] [address] [place] [address] Dr. Valeria Farris Clarity (U) CLEAR Normal CLEAR [facility] Comment on above: Performed By: #### P REGQNT #### [facility] [address] [place] [address] Dr. Valeria Farris Color (U) LT. YELLOW Normal YELLOW [facility] Comment on above: Performed By: #### P REGQNT #### [facility] [address] [place] [address] Dr. Valeria Farris Glucose Ql (U) Negative Normal NEGATIVE [facility] Comment on above: Performed By: #### P REGQNT #### [facility] [address] [place] [address] Dr. Valeria Farris Hemoglobin Ql (U) SMALL Abnormal NEGATIVE [facility] Comment on above: Performed By: #### P REGQNT #### [facility] [address] [place] [address] Dr. Valeria Farris Ketones Ql (U) TRACE Abnormal NEGATIVE [facility] Comment on above: Performed By: #### P REGQNT #### [facility] [address] [place] [address] Dr. Valeria Farris LEUKOCYTES Negative Normal NEGATIVE [facility] Comment on above: Performed By: #### P REGQNT #### [facility] [address] [place] [address] Dr. Valeria Farris Nitrite Ql (U) Negative Normal NEGATIVE [facility] Comment on above: Performed By: #### P REGQNT #### [facility] [address] [place] [address] Dr. Valeria Farris pH (U) 6.5 [pH] Normal 5-9 [facility] Comment on above: Performed By: #### P REGQNT #### [facility] [address] [place] [address] Dr. Valeria Farris SPEC GRAVITY 1.025 Normal 1.005-<=1.02 5 [facility] Comment on above: Performed By: #### P REGQNT #### [facility] [address] [place] [address] Dr. Valeria Farris UA PROTEIN Negative Normal NEGATIVE/ TRACE [facility] Comment on above: Performed By: #### P REGQNT #### [facility] [address] [place] [address] Dr. Valeria Farris UR MICRO IND INDICATED Normal [facility] Comment on above: Performed By: #### P REGQNT #### [facility] [address] [place] [address] Dr. Valeria Farris Urobilinogen Qn (U) 0.2 {Manolo'U}/dL Normal 0.2 - 1. 0 [facility] Comment on above: Performed By: #### P REGQNT #### [facility] [address] [place] [address] Dr. Valeria Farris URINE MICROSCOPIC ONLYon BACTERIA NONE SEEN Normal NONE SEEN [facility] Comment on above: Performed By: #### U ACSIND, UMICRO #### [facility] [address] [place] [address] Dr. Valeria Farris Bacteria identified Cx Nom (U) NOT INDICATED Normal [facility] Comment on above: Performed By: #### U ACSIND, UMICRO #### [facility] [address] [place] [address] Dr. Valeria Farris CAST NONE SEEN Normal NONE SEEN [facility] Comment on above: Performed By: #### U ACSIND, UMICRO #### [facility] [address] [place] [address] Dr. Valeria Farris Crystals LM Nom (Urine sed) NONE SEEN Normal NONE SEEN [facility] Comment on above: Performed By: #### U ACSIND, UMICRO #### [facility] [address] [place] [address] Dr. Valeria Farris Epithelial cells LM Ql (Urine sed) FEW Abnormal NONE SEEN /RARE [facility] Comment on above: Performed By: #### U ACSIND, UMICRO #### [facility] [address] [place] [address] Dr. Valeria Farris MUCOUS TRACE Abnormal NONE SEEN [facility] Comment on above: Performed By: #### U ACSTRUPTI UMICRO #### [facility] [address] [place] [address] Dr. Valeria Farris RBC 0-2 Normal 0-2 [facility] Comment on above: Performed By: #### U ACSTRUPTI ICRO #### [facility] [address] [place] [address] Dr. Valeria Farris WBC NONE SEEN Normal NONE SEEN [facility] Comment on above: Performed By: #### [facility] #### [facility] [address] [place] [address] Dr. Valeria Farris AMYLASEon 04-12-2022 Amylase [Catalytic activity/Vol] 31 U/L Normal 25-115 [facility] Comment on above: Performed By: #### G LU1HR #### [facility] [address] [place] [address] Dr. Valeria Farris BUNon 04-12-2022 Urea nitrogen [Mass/Vol] 7.0 mg/dL Normal 7.0-18.0 [facility] Comment on above: Performed By: #### G LU1HR #### [facility] [address] [place] [address] Dr. Valeria Farris CBC AUTO DIFFon 04-12-2022 BASO # 0.0 103/ul Normal 0.0-0.1 [facility] Comment on above: Performed By: #### P REGQNT #### [facility] [address] [place] [address] Dr. Valeria Farris Basophils/100 WBC (Bld) 0.3 % Normal 0.2-2.0 [facility] Comment on above: Performed By: #### P REGQNT #### [facility] [address] [place] [address] Dr. Valeria Farris EO # 0.3 103/ul Normal 0.0-0.7 [facility] Comment on above: Performed By: #### P REGQNT #### [facility] [address] [address] [address] Valeria Farris Eosinophils/100 WBC (Bld) 2.3 % Normal 0.9-7.0 [facility] Comment on above: Performed By: #### P REGQNT #### [facility] [address] [place] [address] Dr. Valeria Farris Erythrocyte distribution width (RBC) [Ratio] 12.8 % Normal 11.0-15.0 [facility] Comment on above: Performed By: #### P REGQNT #### [facility] [address] [place] [address] Dr. Valeria Farris Hematocrit (Bld) [Volume fraction] 34.9 % Critically low 36.0-48.0 [facility] Comment on above: Performed By: #### P REGQNT #### [facility] [address] [place] [address] Dr. Valeria Farris Hemoglobin (Bld) [Mass/Vol] 11.8 g/dL Critically low 12.0-16.0 [facility] Comment on above: Performed By: #### P REGQNT #### [facility] [address] [place] [address] Dr. Valeria Farris IG # 0.08 10e3/ul Critically high 0.00-0.03 [facility] Comment on above: Performed By: #### P REGQNT #### [facility] [address] [place] [address] Dr. Valeria Farris IG % 0.7 % Critically high 0.0-0.5 [facility] Comment on above: Performed By: #### P REGQNT #### [facility] [address] [place] [address] Dr. Valeria Farris LYMPH # 2.6 103/ul Normal 1.2-3.8 [facility] Comment on above: Performed By: #### P REGQNT #### [facility] [address] [place] [address] Dr. Valeria Farris Lymphocytes/100 WBC (Bld) 22.4 % Normal 20.5-60.0 [facility] Comment on above: Performed By: #### P REGQNT #### [facility] [address] [place] [address] Dr. Valeria Farris MANUAL DIFF REQ NO Normal [facility] Comment on above: Performed By: #### P REGQNT #### [facility] [address] [place] [address] Dr. Valeria Farris MCH (RBC) [Entitic mass] 28.5 pg Normal 26.7-34.0 [facility] Comment on above: Performed By: #### P REGQNT #### [facility] [address] [place] [address] Dr. Valeria Farris MCHC (RBC) [Mass/Vol] 33.8 g/dL Normal 29.9-35.2 [facility] Comment on above: Performed By: #### P REGQNT #### [facility] [address] [place] [address] Dr. Valeria Farris MCV (RBC) [Entitic vol] 84.3 fL Normal 81.0-99.0 [facility] Comment on above: Performed By: #### P REGQNT #### [facility] [address] [place] [address] Dr. Valeria Farris MONO # 0.8 103/ul Normal 0.3-0.8 [facility] Comment on above: Performed By: #### P REGQNT #### [facility] [address] [place] [address] Dr. Valeria Farris Monocytes/100 WBC (Bld) 6.8 % Normal 1.7-12.0 [facility] Comment on above: Performed By: #### P REGQNT #### [facility] [address] [place] [address] Dr. Valeria Farris NEUT # 7.8 103/ul Critically high 1.4-6.5 [facility] Comment on above: Performed By: #### P REGQNT #### [facility] [address] [place] [address] Dr. Valeria Farris Neutrophils/100 WBC (Bld) 67.5 % Normal 43.0-75.0 [facility] Comment on above: Performed By: #### P REGQNT #### [facility] [address] [place] [address] Dr. Valeria Farris Platelet mean volume (Bld) [Entitic vol] 10.3 fL Normal 9.5-13.5 [facility] Comment on above: Performed By: #### P REGQNT #### [facility] [address] [place] [address] Dr. Valeria Farris PLT 195 103/ul Normal 150-450 [facility] Comment on above: Performed By: #### P REGQNT #### [facility] [address] [place] [address] Dr. Valeria Farris RBC 4.14 106/ul Critically low 4.20-5.40 [facility] Comment on above: Performed By: #### P REGQNT #### [facility] [address] [place] [address] Dr. Valeria Farris WBC 11.5 103/ul Critically high 4.0-11.0 [facility] Comment on above: Performed By: #### P REGQNT #### [facility] [address] [place] [address] Dr. Valeria Farris CREATININEon 04-12-2022 Creatinine [Mass/Vol] 0.44 mg/dL Critically low 0.55-1.02 [facility] Comment on above: Performed By: #### G LU1HR #### [facility] [address] [place] [address] Dr. Valeria Farris EGFR-AF SERBIAN >60 Normal >=60 [facility] Comment on above: Performed By: #### G LU1HR #### [facility] [address] [place] [address] Dr. Valeria Farris EGFR-NON AF SERBIAN >60 Normal >=60 [facility] Comment on above: Performed By: #### G LU1HR #### [facility] [address] [place] [address] Dr. Valeria Farris LIPASEon 04-12-2022 Lipase [Catalytic activity/Vol] 62.0 U/L Critically low 73.0-393.0 [facility] Comment on above: Performed By: #### G LU1HR #### [facility] [address] [place] [address] Dr. Valeria Farris LIVER PROFILEon 04-12-2022 Albumin [Mass/Vol] 2.9 g/dL Critically low 3.4-5.0 [facility] Comment on above: Performed By: #### G LU1HR #### [facility] [address] [place] [address] Dr. Valeria Farris Albumin/Globulin [Mass ratio] 0.7 {ratio} Normal [facility] Comment on above: Performed By: #### G LU1HR #### [facility] [address] [place] [address] Dr. Valeria Farris ALP [Catalytic activity/Vol] 86 U/L Normal 46-116 [facility] Comment on above: Performed By: #### G LU1HR #### [facility] [address] [place] [address] Dr. Valeria Farris ALT [Catalytic activity/Vol] 14 U/L Normal 14-59 [facility] Comment on above: Performed By: #### G LU1HR #### [facility] [address] [place] [address] Dr. Valeria Farris AST [Catalytic activity/Vol] 12 U/L Critically low 15-37 [facility] Comment on above: Performed By: #### G LU1HR #### [facility] [address] [place] [address] Dr. Valeria Farris BILI, CONJUGATED 0.1 mg/dL Normal 0.0-0.2 [facility] Comment on above: Performed By: #### G LU1HR #### [facility] [address] [place] [address] Dr. Valeria Farris Bilirubin [Mass/Vol] 0.2 mg/dL Normal 0.2-1.0 [facility] Comment on above: Performed By: #### G LU1HR #### [facility] [address] [place] [address] Dr. Valeria Farris Globulin (S) [Mass/Vol] 4.2 g/dL Normal [facility] Comment on above: Performed By: #### G LU1HR #### [facility] [address] [address] [address] Valeria Farris Protein [Mass/Vol] 7.1 g/dL Normal 6.4-8.2 [facility] Comment on above: Performed By: #### G LU1HR #### [facility] [address] [place] [address] Dr. Valeria Farris PROF 14(COMP METB)on 022 Anion gap [Moles/Vol] 13.1 mmol/L Normal [facility] Comment on above: Performed By: #### G LU1HR #### [facility] [address] [place] [address] Dr. Valeria Farris Calcium [Mass/Vol] 8.7 mg/dL Normal 8.5-10.1 [facility] Comment on above: Performed By: #### G LU1HR #### [facility] [address] [address] [address] Valeria Farris Chloride [Moles/Vol] 100 mmol/L Normal 98-107 [facility] Comment on above: Performed By: #### G LU1HR #### [facility] [address] [place] [address] Dr. Valeria Farris CO2 [Moles/Vol] 25.4 mmol/L Normal 21.0-32.0 [facility] Comment on above: Performed By: #### G LU1HR #### [facility] [address] [address] [address] Valeria Farris Glucose [Mass/Vol] 87 mg/dL Normal 74-106 [facility] Comment on above: Performed By: #### G LU1HR #### [facility] [address] [address] [address] Valeria Farris Potassium [Moles/Vol] 3.5 mmol/L Normal 3.5-5.1 [facility] Comment on above: Performed By: #### G LU1HR #### [facility] [address] [address] [address] Valeria Farris Sodium [Moles/Vol] 135 mmol/L Critically low 136-145 [facility] Comment on above: Performed By: #### G LU1HR #### [facility] [address] [address] [address] Valeria Farris Urea nitrogen/Creatinine [Mass ratio] 15.9 mg/mg Normal [facility] Comment on above: Performed By: #### G LU1HR #### [facility] [address] [address] [address] Valeria Farris US PREG CERVICAL LENGTHon [...] GERARD GONZALEZ Date: 2022-04-12 16:39 Normal [facility] UA (CLEAN/CATCH) PONY CYLINDER PRESS OPERATOR/MICRO I F IND.on 04-11-2022 Bilirubin Ql (U) Negative Normal NEGATIVE [facility] Comment on above: Performed By: #### U ACSTRUPTI UMICRO #### [facility] [address] [address] [address] Valeria Farris Clarity (U) CLEAR Normal CLEAR [facility] Comment on above: Performed By: #### U ACSTRUPTI UMICRO #### [facility] [address] [address] [address] Valeria Farris Color (U) LT. YELLOW Normal YELLOW [facility] Comment on above: Performed By: #### U ACSTRUPTI UMICRO #### [facility] [address] [address] [address] Valeria Farris Glucose Ql (U) Negative Normal NEGATIVE [facility] Comment on above: Performed By: #### U ACSIND, UMICRO #### [facility] [address] [address] [address] Valeria Farris Hemoglobin Ql (U) TRACE-INTACT Abnormal NEGATIVE [facility] Comment on above: Performed By: #### U ACSIND, UMICRO #### [facility] [address] [address] [address] Valeria Farris Ketones Ql (U) Negative Normal NEGATIVE [facility] Comment on above: Performed By: #### U ACSIND, UMICRO #### [facility] [address] [address] [address] Valeria Farris LEUKOCYTES Negative Normal NEGATIVE [facility] Comment on above: Performed By: #### U ACSIND, UMICRO #### [facility] [address] [address] [address] Valeria Farris Nitrite Ql (U) Negative Normal NEGATIVE [facility] Comment on above: Performed By: #### U ACSIND, ICRO #### [facility] [address] [address] [address] Valeria Farris pH (U) 6.5 [pH] Normal 5-9 [facility] Comment on above: Performed By: #### U ACSTRUPTI, ICRO #### [facility] [address] [address] [address] Valeria Farris SPEC GRAVITY 1.010 Normal 1.005-<=1.02 5 [facility] Comment on above: Performed By: #### U ACSIND, UMICRO #### [facility] [address] [place] [address] Dr. Valeria Farris UA PROTEIN Negative Normal NEGATIVE/ TRACE [facility] Comment on above: Performed By: #### U ACSIND, UMICRO #### [facility] [address] [address] [address] Valeria Farris UR MICRO IND INDICATED Normal [facility] Comment on above: Performed By: #### U ACSTRUPTI, UMICRO #### [facility] [address] [place] [address] Dr. Valeria Farris Urobilinogen Qn (U) 0.2 {Manolo'U}/dL Normal 0.2 - 1. 0 [facility] Comment on above: Performed By: #### U ACSTRUPTI UMICRO #### [facility] [address] [place] [address] Dr. Valeria Farris URINE MICROSCOPIC ONLYon BACTERIA NONE SEEN Normal NONE SEEN [facility] Comment on above: Performed By: #### U ACSTRUPTI, UMICRO #### [facility] [address] [place] [address] Dr. Valeria Farris Bacteria identified Cx Nom (U) NOT INDICATED Normal [facility] Comment on above: Performed By: #### U ACSTRUPTI UMICRO #### [facility] [address] [place] [address] Dr. Valeria Farris CAST NONE SEEN Normal NONE SEEN [facility] Comment on above: Performed By: #### U ACSTRUPTI UMICRO #### [facility] [address] [place] [address] Dr. Valeria Farris Crystals LM Nom (Urine sed) NONE SEEN Normal NONE SEEN [facility] Comment on above: Performed By: #### U ACSTRUPTI UMICRO #### [facility] [address] [place] [address] Dr. Valeria Farris Epithelial cells LM Ql (Urine sed) FEW Abnormal NONE SEEN /RARE [facility] Comment on above: Performed By: #### U ACSTRUPTI UMICRO #### [facility] [address] [place] [address] Dr. Valeria Farris MUCOUS NONE SEEN Normal NONE SEEN [facility] Comment on above: Performed By: #### U ACSTRUPTI UMICRO #### [facility] [address] [place] [address] Dr. Valeria Farris RBC 0-2 Normal 0-2 [facility] Comment on above: Performed By: #### U ACSTRUPTI UMICRO #### [facility] [address] [place] [address] Dr. Valeria Farris WBC 0-2 Abnormal NONE SEEN [facility] Comment on above: Performed By: #### U ACSINDDAPHNE #### [facility] [address] [address] [address] Valeria Farris US PREG ANATOMY SINGLEon [...] by: ALINE GALICIA Date: 2022-03-28 10:57 Normal [facility] XR SHOULDER RT 2V or >on XR SHOULDER RT 2V or > EXAM: XR SHOULDER RT 2V or > INDICATION: Pain. COMPARISON: None. TECHNIQUE: Right shoulder, 3 views. FINDINGS: No acute fracture or dislocation. Intact glenohumeral and acromioclavicular joints. Unremarkable soft tissues. IMPRESSION: Normal right shoulder. Electronically authenticated by: GILDARDOKEON TAYLOR Date: 2022-03-19 08:36 Normal [facility] AFP TETRA PROFILE (MATERNAL) on 03-08-2022 AFP MoM 0.60 Normal [facility] Comment on above: Performed By: #### U LETI UMICRO #### [facility] [address] [address] [address] Valeria Farris AFP Value 15.2 ng/mL Normal [facility] Comment on above: Performed By: #### U LETI UMICRO #### [facility] [address] [address] [address] Valeria Farris Comment Comment Normal [facility] Comment on above: Result Comment: Nicolás Ramirez, Ph.D., [facility] Director . References: Available Upon Request. . Multiples Of Median Cutoffs Abbreviation Definitions For AFP Elevations IDD- Insulin Dep Diabetes Rodriguez 2.5 Black 2.8 OSBR- Open Spina Bifida IDD 2.0 Twins 4.5 Risk DSR Cutoff 1:270 DSR- Down Syndrome Risk T18 Cutoff 1:100 T18- Trisomy 18 . For further inquiries contact [facility] at [phone]. . This test was developed and its performance characteristics determined by [facility]. It has not been cleared or approved by the Food and Drug Administration. Performed By: #### U ZAID LANDEROSICRO #### [facility] [address] [address] [address] Valeria Farris CHACE MoM 0.90 Normal [facility] Comment on above: Performed By: #### U LETI UMICRO #### [facility] [address] [address] [address] Valeria Farris CHACE Value 95.93 pg/mL Normal [facility] Comment on above: Performed By: #### U ZAID LANDEROSICRO #### [facility] [address] [address] [address] Valeria Farris DSR (By Age) 1 IN 656 Normal [facility] Comment on above: Performed By: #### U LETI UMICRO #### [facility] [address] [place] [address] Dr. Valeria Farris DSR (Second Trimester) 1 [place] 5782 Normal [facility] Comment on above: Performed By: #### U ALEX LANDEROSRO #### [facility] [address] [address] [address] Valeria Farris Gest. Age on Collection Date 16.7 WEEKS Normal [facility] Comment on above: Performed By: #### U LETI UMICRO #### [facility] [address] [address] [address] Valeria Farris Gestat. Age Based On SUNSHINE [facility] Comment on above: Result Comment: 07/23 Performed By: #### ALEX SUNRO #### [facility] [address] [place] [address] Dr. Valeria Farris hCG MoM 0.61 Normal [facility] Comment on above: Performed By: #### U LETI UMICRO #### [facility] [address] [place] [address] [place] [address] m[IU]/mL [facility] Comment on above: Performed By: #### Jona LANDEROS UMICRO #### [facility] [address] [place] [address] Dr. Valeria Farris Insulin Dep Diabetes No Normal [facility] Comment on above: Performed By: #### U LETI UMICRO #### [facility] [address] [place] [address] Dr. Valeria Farris Interpretation Comment Normal [facility] Comment on above: Result Comment: Inte rpretation: [...] identifies 60% of Trisomy 18 pregnancies. The [employer] recommends amniocentesis be offered to women age 35 and older. Recalculations are not recommended when gestational dating by LMP and ultrasound are within 10 days. Performed By: #### U ACSTRUPTI UMICRO #### [facility] [address] [address] [address] Valeria Farris [age] Normal [facility] Comment on above: Performed By: #### U ACSTRUPTI UMICRO #### [facility] [address] [address] [address] Valeria Farris Multiple Gestation No Normal [facility] Comment on above: Performed By: #### U ACSTRUPTI UMICRO #### [facility] [address] [address] [address] Valeria Farris [place] [address] Normal [facility] Comment on above: Performed By: #### U ACSTRUPTI UMICRO #### [facility] [address] [address] [address] Valeria Farris PDF . Normal [facility] Comment on above: Performed By: #### U ACSTRUPTI UMICRO #### [facility] [address] [address] [address] Valeria Farris Race [facility] Comment on above: Performed By: #### U ACSTRUPTI UMICRO #### [facility] [address] [address] [address] Valeria Farris Results Report [facility] Comment on above: Performed By: #### U ACSTRUPTI, UMICRO #### [facility] [address] [address] [address] Valeria Farris T18 (By Age) 1:2556 Normal [facility] Comment on above: Performed By: #### U ACSTRUPTI UMICRO #### [facility] [address] [address] [address] Valeria Farris T18 Risk Not increased Normal [facility] Comment on above: Performed By: #### U ACSTRUPTI UMICRO #### [facility] [address] [address] [address] Valeria Farris Test Results: Negative Normal [facility] Comment on above: Performed By: #### U ACSTRUPTI UMICRO #### [facility] [address] [address] [address] Valeria Farris uE3 MoM 0.75 Normal [facility] Comment on above: Performed By: #### U ACSTRUPTI UMICRO #### [facility] [address] [address] [address] Valeria Farris uE3 Value 0.71 ng/mL Normal [facility] Comment on above: Performed By: #### U ACSTRUPTI UMICRO #### [facility] [address] [address] [address] Valeria Farris GLUCOSE - 1HRon 03-03-2022 Glucose [Mass/Vol] 214 mg/dL Critically high 74-106 T [facility] Comment on above: Performed By: #### G LU1HR #### [facility] [address] [place] [address] Dr. Valeria Farris HEPATITIS C VIRUS AB W/ REFL EX QUANTon 01-11-2022 HCV AB <0.1 Normal 0.0-0.9 [facility] Comment on above: Performed By: #### P REGQNT #### [facility] [address] [place] [address] Dr. Valeria Farris Interpretation: Comment Normal [facility] Comment on above: Result Comment: Nega tive Not infected with HCV, unless recent infection is suspected or other evidence exists to indicate HCV infection. Performed By: #### P REGQNT #### [facility] [address] [place] [address] Dr. Valeria Farris HEP B SURFACE ANTIGEN SCREEN on 01-10-2022 HBsAg Screen Negative Normal Negative [facility] Comment on above: Performed By: #### P REGQNT #### [facility] [address] [place] [address] Dr. Valeria Farris HIV 1 AND 2 WITH REFLEXon HIV Screen 4th Generation wRfx Non-Reactive Normal Non Reactive [facility] Comment on above: Result Comment: HIV Negative HIV-1/HIV-2 antibodies and HIV-1 p24 antigen were NOT detected. There is no laboratory evidence of HIV infection. Performed By: #### H IV12 #### [facility] [address] [place] [address] Dr. Valeria Farris RPR QUANTon 01-10-2022 Rapid Plasma Reagin, Quant Non-Reactive Normal NonRea<1:1 [facility] Comment on above: Result Comment: Plea se Note: This test does not meet current guidelines for screening and diagnosis of syphilis. This test is intended for following treatment response in patients being treated for syphilis infection. To screen for syphilis infection, a reflex cascade that includes both RPR and a treponema-specific assay should be utilized, such as Treponema pallidum (Syphilis) Screening Commerce (055602) or Rapid Plasma Reagin (RPR) Test With Reflex to Quantitative RPR and Confirmatory Treponema pallidum Antibodies (274291). Performed By: #### R PRQ #### [facility] [address] [place] [address] Dr. Valeria Farris RUBELLA AB IGGon 01-10-2022 Rubella Antibodies, IgG 1.83 index Normal Immune >0.99 [facility] Comment on above: Result Comment: Non- immune <0.90 Equivocal 0.90 - 0.99 Immune >0.99 Performed By: #### U ACSIND, UMICRO #### [facility] [address] [place] [address] Dr. Valeria Farris CBC AUTO DIFFon 01-09-2022 BASO # 0.0 103/ul Normal 0.0-0.1 [facility] Comment on above: Performed By: #### 4 [id number] #### [facility] [address] [place] [address] Dr. Valeria Farris Basophils/100 WBC (Bld) 0.4 % Normal 0.2-2.0 [facility] Comment on above: Performed By: #### 4 [id number] #### [facility] [address] [place] [address] Dr. Valeria Farris EO # 0.3 103/ul Normal 0.0-0.7 [facility] Comment on above: Performed By: #### 4 [id number] #### [facility] [address] [place] [address] Dr. Valeria Farris Eosinophils/100 WBC (Bld) 3.5 % Normal 0.9-7.0 [facility] Comment on above: Performed By: #### 4 [id number] #### [facility] [address] [place] [address] Dr. Valeria Farris Erythrocyte distribution width (RBC) [Ratio] 13.6 % Normal 11.0-15.0 [facility] Comment on above: Performed By: #### 4 [id number] #### [facility] [address] [place] [address] Dr. Valeria Farris Hematocrit (Bld) [Volume fraction] 38.9 % Normal 36.0-48.0 [facility] Comment on above: Performed By: #### 4 [id number] #### [facility] [address] [place] [address] Dr. Valeria Farris Hemoglobin (Bld) [Mass/Vol] 12.9 g/dL Normal 12.0-16.0 [facility] Comment on above: Performed By: #### 4 [id number] #### [facility] [address] [place] [address] Dr. Valeria Farris IG # 0.04 10e3/ul Critically high 0.00-0.03 [facility] Comment on above: Performed By: #### 4 [id number] #### [facility] [address] [place] [address] Dr. Valeria Farris IG % 0.4 % Normal 0.0-0.5 [facility] Comment on above: Performed By: #### 4 [id number] #### [facility] [address] [place] [address] Dr. Valeria Farris LYMPH # 2.1 103/ul Normal 1.2-3.8 [facility] Comment on above: Performed By: #### 4 [id number] #### [facility] [address] [place] [address] Dr. Valeria Farris Lymphocytes/100 WBC (Bld) 21.5 % Normal 20.5-60.0 [facility] Comment on above: Performed By: #### 4 [id number] #### [facility] [address] [place] [address] Dr. Valeria Farris MANUAL DIFF REQ NO Normal [facility] Comment on above: Performed By: #### 4 [id number] #### [facility] [address] [place] [address] Dr. Valeria Farris MCH (RBC) [Entitic mass] 27.9 pg Normal 26.7-34.0 [facility] Comment on above: Performed By: #### 4 [id number] #### [facility] [address] [place] [address] Dr. Valeria Farris MCHC (RBC) [Mass/Vol] 33.2 g/dL Normal 29.9-35.2 [facility] Comment on above: Performed By: #### 4 [id number] #### [facility] [address] [place] [address] Dr. Valeria Farris MCV (RBC) [Entitic vol] 84.0 fL Normal 81.0-99.0 [facility] Comment on above: Performed By: #### 4 [id number] #### [facility] [address] [place] [address] Dr. Valeria Farris MONO # 0.6 103/ul Normal 0.3-0.8 [facility] Comment on above: Performed By: #### 4 [id number] #### [facility] [address] [place] [address] Dr. Valeria Farris Monocytes/100 WBC (Bld) 5.6 % Normal 1.7-12.0 [facility] Comment on above: Performed By: #### 4 [id number] #### [facility] [address] [place] [address] Dr. Valeria Farris NEUT # 6.7 103/ul Critically high 1.4-6.5 [facility] Comment on above: Performed By: #### 4 [id number] #### [facility] [address] [place] [address] Dr. Valeria Farris Neutrophils/100 WBC (Bld) 68.6 % Normal 43.0-75.0 [facility] Comment on above: Performed By: #### 4 [id number] #### [facility] [address] [place] [address] Dr. Valeria Farris Platelet mean volume (Bld) [Entitic vol] 9.9 fL Normal 9.5-13.5 [facility] Comment on above: Performed By: #### 4 [id number] #### [facility] [address] [place] [address] Dr. Valeria Farris PLT 244 103/ul Normal 150-450 [facility] Comment on above: Performed By: #### 4 [id number] #### [facility] [address] [place] [address] Dr. Valeria Farris RBC 4.63 106/ul Normal 4.20-5.40 [facility] Comment on above: Performed By: #### 4 [id number] #### [facility] [address] [place] [address] Dr. Valeria Farris WBC 9.7 103/ul Normal 4.0-11.0 [facility] Comment on above: Performed By: #### 4 [id number] #### [facility] [address] [place] [address] Dr. Valeria Farris CULTURE URINEon 01-09-2022 CULTURE URINE Culture Observations : MODERATE GROWTH OF MIXED GENITAL RIO. NO POTENTIAL PATHOGENS SEEN. Normal [facility] Comment on above: Performed By: #### U RCX #### [facility] [address] [place] [address] Dr. Valeria Farris GLYCOHEMOGLOBIN A1Con 2021 ADA RECOMMENDATION SEE BELOW Normal [facility] Comment on above: Result Comment: ADA RECOMMENDED LIMIT 4.0 - 6.0 ADA THERAPEUTIC TARGET < 7.0 ACTION SUGGESTED > 7.0 Performed By: #### P REGQNT #### [facility] [address] [place] [address] Dr. Valeria Farris Glucose [Mass/Vol] 111 mg/dL Normal [facility] Comment on above: Performed By: #### P REGQNT #### [facility] [address] [address] [address] Valeria Farris HbA1c (Bld) [Mass fraction] 5.5 % Normal 4.5-6.2 [facility] Comment on above: Performed By: #### P REGQNT #### [facility] [address] [address] [address] Valeria Farris LETHA BOX TEST PT SEND OUTo n 01-09-2022 SENT TO REF LAB 01/09/2022 Normal [facility] Comment on above: Performed By: #### N BOX #### [facility] [address] [address] [address] Valeria Farris TYPE AND SCREENon 01-09-2022 TYPE AND SCREEN Negative Normal [facility] Comment on above: Performed By: #### 4 [id number] #### [facility] [address] [place] [address] Dr. Valeria Farris US PREG TVon 12-30-2021 [...] GERARD GONZALEZ Date: 2021-12-30 17:14 Normal [facility] US PREG TVon 12-15-2021 US PREG TV [...] GERARD GONZALEZ Date: 2021-12-14 22:02 Normal [facility] HCG-BETA SUBUNIT QUANTon hCG,Beta Subunit,Qnt,Serum 571 mIU/mL Normal [facility] Comment on above: Result Comment: Fema le (Non-) 0 - 5 (Postmenopausal) 0 - 8 . Female () Weeks of Gestation 3 6 - 4 10 - 750 5 217 - 7138 6 158 - 69985 7 3697 -225121 8 55008 -706583 9 31400 -365874 10 85982 -342904 12 24833 -105119 14 55990 - 38835 15 01021 - 62555 16 9040 - 23718 17 8175 - 97259 18 8099 - 75531 [employer] ECLIA methodology Performed By: #### P REGQNT #### [facility] [address] [place] [address] Dr. Valeria Farris HCG-BETA SUBUNIT QUANTon hCG,Beta Subunit,Qnt,Serum 65 mIU/mL Normal [facility] Comment on above: Result Comment: Fema le (Non-) 0 - 5 (Postmenopausal) 0 - 8 . Female () Weeks of Gestation 3 - 4 10 - 750 5 217 - 7138 6 158 - 70672 7 3697 -092145 8 56813 -928816 9 85894 -030872 10 04834 -549594 12 72845 -430539 14 28187 - 84177 15 87551 - 54124 16 9040 - 47098 17 8175 - 04595 18 8099 - 92497 [employer] ECLIA methodology Performed By: #### U ACSIND, UMICRO #### [facility] [address] [place] [address] Dr. aVleria Farris HCG-BETA SUBUNIT QUANTon hCG,Beta Subunit,Qnt,Serum 18 mIU/mL Normal [facility] Comment on above: Result Comment: Fema le (Non-) 0 - 5 (Postmenopausal) 0 - 8 . Female () Weeks of Gestation 3 6 - 71 4 10 - 750 5 012 - 3753 6 986 - 65740 7 5554 -255327 8 46961 -848923 9 11528 -857963 10 98060 -640170 12 19138 -900429 14 28789 - 91367 15 11081 - 89396 16 0202 - 68508 17 3480 - 97105 18 9204 - 72794 [place] ECLIA methodology Performed By: #### G LU1HR #### [facility] [address] [address] [address] Valeria Farris PREG QUANT HCGon 10-05-2021 HCG QUANT <1 Normal [facility] Comment on above: Performed By: #### P REGQNT #### [facility] [address] [place] [address] Dr. Valeria Farris HCG RANGE SEE BELOW Normal [facility] Comment on above: Result Comment: 5-50 0-1 WEEK 40-300 1-2 WEEKS 100-1,000 2-3 WEEKS 500-6,000 3-4 WEEKS 5,000-200,000 1-2 MONTHS 10,000-100,000 2-3 MONTHS 3,000-50,000 2ND TRIMESTER 1,000-50,000 3RD TRIMESTER Performed By: #### P REGQNT #### [facility] [address] [place] [address] Dr. Valeria Farris FREE T4on 09-12-2021 Free T4 [Mass/Vol] 0.88 ng/dL Normal 0.76-1.46 [facility] Comment on above: Performed By: #### P REGQNT #### [facility] [address] [place] [address] Dr. Valeria Farris TSHon 09-12-2021 TSH 1.564 uIU/mL Normal 0.358-3.740 [facility] Comment on above: Performed By: #### 4 [id number] #### [facility] [address] [place] [address] Dr. Valeria Farris TSH RANGE SEE BELOW Normal [facility] Comment on above: Result Comment: <0.3 4 UIU/ml HYPERTHYROID 0.34-5.60 UIU/ml EUTHYROID >5.60 UIU/ml HYPOTHYROID Performed By: #### 4 [id number] #### [facility] [address] [address] [address] Valeria Farris US VENOUS DOPPLER L [...] GERARD GONZALEZ Date: 2021-09-12 14:31 Normal [facility] Coding Summaryon 10-16-2020 Coding Summary HTMLBase 64 QzcqxtebLOl6dOf+PGhlYWQ+ ED2FFGLtO32viMEmiI4TA6sJ OB1BEVQPSGGMAG3YIY8vlKD9 BIopI7WvlrYi XabthUOySG28ZXz7NGK1nUml RIymoN6ldKUyM8d5AgEmON13 pW62NAwjBBHpWdH3EgZrxdap bWFy R1fdTxLquVVpUhe+PHRhYmxl IHdpZHRoPScxMDAlJyBzdHls AC1mCc2nDQPdRQFsdLhcaYKs OiBj g1ylTUUlZQkkIJ1tcIjrI8Us cMJ7XFUxx9p7My11aJH+PHRk DHJ4aOfwIAxhu754FxTfl8tn IDM3 cYUuFDlpDAX9S47ku4L0BREl UKNfJMX8jKX3eP1dxJrgiukf E4JzhSCcOqS4BSI9tVLqeG5f bGln vbmkiC5iPnh+J87EFZ1BZYET EC6VCzr9K2ReFupeuGH+PC90 AUQdGY87xRCizLTyn1eqrCu3 JzEw LQVyYBQ5pHxsZWaof3CrLNCh V31tiHXfk6W0GWShuSdkeXCq XrKjmNF9wK3eCOnfewklp1je dzsn Sxlhl2ztcq90mU06W43zMIag JMWjXOL6FWAxKXGgvSltgo6s hF4bTu7+GInnf2sus4kxjBq3 IjIw DXUbroZdfBckFEP4e7QsHf85 T5NbmYrzv5PcFuv3ux57pOXu x2K1aXF4YBybETJinK0cNYti ZnQ6 ZABhScRtvS78rJXiGGtxDq1d nLspsYhaAY9wGWHskcehNRVy tC7cWGLbkDWkpEswGM3nFIIf bjtm f824RtEjITR7TGAxeHEwV9Wi eZ0hAiBeEHWkOMQiI0NxjNIf RNnjO461ACbyLpL7FSPlokIo Y2Fs KNVfdLifIsJ2q8B3Ul7Km9Xa mqezFCH8RHywSKQ2TmA2OdHr HiP6T7IlLqx7HBLdmGwhKQ8u J3Bh CBPmqtcnrjrosDD4XXXuIZSd vW12kUVxWJvbUp6on0P5o544 LVYdRGCtwJ56Km6dsIbvMOSb dCBU xE7klyrhx9devzwiNyJqYVEi PMf4GYy0BJWvyGsbClCmAMF6 IcU3NQP7iKYdfQ2doTlaabgy dG9w Oyc+A65zrD9hAUQ6ETA4pxfs XMUxusEkDZ63OX74V1KxDuqi dGFibGU+XQYzfvBeqQsbOD4b YmFj z2ubj1GqIGkcX7KnIDPqVJlb Pjh7PTUxDQI7yDQ3hG9wWPQo NRtui8L1yLS7R4BnvkZlvn5k b2xs ILAoEJqrQ23vfGQmt5K3YINp sNH1JMEbiHtyFeZdcG75Oxu+ WPYvxNtfj8FiDvuks6imi8eo dGg9 AqFtYKFzbyFpwOmgLJD9t0Hu Tp24E08oGJboHIWeGOOiFCTq HDZcmRqmqf3zpD5aSk9+PGNv bCB3 bLX9vG3hMZUgNhT0FLkwR179 MwPifAUgDhfyt9iel6unhTw6 OgGmEPZiawOqhMpzSCJ0o5Iv Lz48 F17xUManTOCyYTBeBFIyLQCq sVbxhj8bnH4uWe4+TG6zd1fh qz43sX79gFD+NQHvCSN7nXts PSdw CSUpvN8lWHovTpJ4PWOlHxRu lZ51gPBbZLlpRq7pzTlrlXnh PP9sQGDoztqvz226RqOcc9yy IDEw yZNhMYdaTHX3A27ym0C2SCAi SWSwJNA2wTI6xN5jbLjvwhys bGVmdDsgdmVydGljYWwtYWxp Z246 IHRvcDsnPlBhdGllbnQgTmFt TOm4J5WxUnw0LEGipYnqPN0b lFGtZEveXy5kzOkyeWncGK6u NTBp xcqgj682TbAry4eiCVRplUBx TBieGUY3E38pt1R6GBWqHEEz SSP8mTH4jA8ctVxanwwqoURw dDsg tmTekZcwPHycKOxpJ764AAXe jDieYpAbawVaNULavCE1ED93 UO12cZWxh8V4yMN5B1CoSPHu bmct xqahjUM0JIGrFXElfV56Sc2d oIrdMt1vODBzFHV7ZTNimKPh T1GdyR7wTeRxWIZqRSJhW5Hi eHQt XBjcT149KRofYoR4LCUwuoEf S9HoIZSwpVzaBuZ9o5P9Pz2E X9V7WR88YJ92aIYtr4N9xQG3 J3Bh QTIzyborikdyyPJ4GJUnDEUw nE99Qj1swVgfLi6oYOIjIPX6 IRQosMLgC4XaeI3jWxRiOVYz MDAw T4HxmRBkMLkqB948MSyoQfT9 HDVylfNqG1AcXGAqcPkqGwA2 s6L3Bv1RAWa6LV68XN09qNOc c3R5 oGL9F4IwPATudgeingdcgCH3 ZRElZAJcqA43Bs6vpYfyIr2s JFTzSWJ4CNIciCPeB7WtjD7f OiAj HFWjXQEvQ7TmtSMdKEmqF244 JQadZwF6CUWufgUlK6XqNDMa tOwxMhV5h9D4Rx9MOGCsHT33 IFR5 uQB2IT18TJ59X0VbDusiiLGf bGU+PHRhYmxlIHdpZHRoPScx ZMNpAyCblSzsNQ4yQy5vPITm LWNv wZnmwOYhAgWsk7xnOYCcEPoj AK2jjEkwO6AbeGF8ASFrt3g6 Fu79L10iJ6ZitWE+PGNvbCB3 aWR0 oC8aQbQeBsZ9DJcbH955DqMq jTArPfoie0qri7kchUs8MgV7 WMHpiuYklLgzTEI5d0FrYt08 Y29s IHdpZHRoPSIxNSUiIHZhbGln wn4quP2qOm5+QNZtcMB6gUP9 yL1pOwPiNsC8WFxoN970HsPy cCIv Vqfrj9gqv2ktvQn7AuWvTXTb qrPrvIvbZFV6k0IaAs46A7Rv kEqhu3KaLza7ai86uYHad2V2 bGU9 F4TgCDSsjdsddXNapKzsCC4v FLVrwyxrFKMbxJ6fVSFtA0j4 RbTwExV8OMsjQ6FksyB6CYTc cHQg SAnoQBE7D33dr3Y0YABxFAKh KSD0tOT8mC6yqJhmglvlfTVu zYhiicXoiKyaWOndRBqcQ239 IHRv vUuvQSMsqW8lIUBndKJozEvb VQ5aEOBxsjaiJwJMBjJTVgMQ LCBNRUdBTiBNQVJJRTwvdGQ+ PHRk MMC1oQwpGNnsRLRaxS8bGNJe R4i4HmFoLtK7BNqvX8MlULDs evsrEz58wA2dYzGaFxK5TOxp O2Zv dxG6LPMilSFaWFkeLPA0L38s q0A3JEOtMRGkHFF4jBC1iB4d bGlnbjogbGVmdDsgdmVydGlj YWwt VMsjM789JZAmjBbbSnUcQqQ1 ByQ5KBY5A2VqZdi2DQOmxMoe TS1pdRSaDMwzDu6pqGxueDzn MC4w KWYtqbsiGZMwqD3fCTAjrFPg bMdzYV1oAOHldshfu829YaUa HCI3RCOqzDOlP4NecO5qQvLk MDAw VENgY4RktRVwJYnqU699HMlo NvB7TSXyttUqW8AvBVVjjTns JqX2q5N9Ub2tSOFPQGRvwdba dGQ+ RPOgMON9aHfrXYjiEATkjP6n GHDvA2v1VyLtSbD3VVddK2Uh ELDveonbQj54yZ5vHsRcWuQ8 MGlu J0XyxaB0RXHefQSuZMriHFN1 Q92cs8K3FXMwSJWyCNW5fRP1 cK0nrHdasmzhvRQemWelprDz dGlj WAtlKEyzQ478FPHmyGonXpBF TUFMRTwvdGQ+OGFiCBZ3gIof FIxvBIUatE9sOBZcV2w0OwJe LjA1 SXgnK5OdGHYhmepaJf48fM3j RhIdTxJ5UBsdE7RdfuK7YBKl aBSkAWbkIMY3Z53mm2P7WTXa MDAw CUO2eTE4mJ5hiXwgajwxtSBs qQwtykSvjLurDGttNLdjI269 CJCaxJfyNg8UZU04FB44Q4Cs Pjwv dGFibGU+PHRhYmxlIHdpZHRo TIieONOzJrRwyEuvPC7gLe2c MVQvEZAjoEtdhRObCiEbg9zp YXBz UBbdQB8rzZnsB9DphMY0QYRw a7g2Ao06A86kU0CxxTL+PGNv zIG1iOJ7mH1gWiAdJxB9PFzq Z249 NfWfaJAaOfpmy7lfl4vlpNc8 MgYuMBQhrxOvnDgfQTT7b9Tp Wc01W62lFTddNBOeVLBxVVBp IHZh kBfrsg9amV1mHv9+PGNvbCB3 fUR2oQ1cNmRqMiP4PFleS690 WlNhpPLwTslqC63sB9VlnWZ+ PHRy Ycr3MWLtlEovFH0dqSIkGJew Ld9hCEV9FlNpJbEtDLutU0Bg ZUEhjgorvnsijXE4NSLsSLLd aW47 Oe6cvOzsCj9dNACqSSX6ULWa oJGzN4FqhX9fQsVmUIIlFADz J7ZltPDxTHkcF569HOhsBbM3 IHZl ikGbB8NeRDNiuAceQtA6a9Y5 Rv0WfGylrUSiCD1dAqNcDQb3 M2QtNck7BDBktAzvOL3aqEEd ZGlu Nb6mxYtxpBneCI6fKIJynhyx a664MoWjd4miPZColWYnPEpq FJF4E13ea8X3UQDwJMObLXB1 dGV4 vM6klUzwiqikmNBpdAcuixKu mIjjMCfdPOmrQ954YHEnjBge WiPVNzx7Z8JzXno1EODrtWxf ZT0n tBCcYKpvEv4qoNrahEpdDV1d JJMpzlyxy107NcFal9jdUEMe nIVcBCxlLXO8P30ak3H2XNZx MDAw EUU8gVB4fQ8iaEqjcqiaeHHg xDlhryMegGjeIMlhYDnkF536 XAZtnEfgGx1YMxl7S4GbHbz1 ZCBz vCqrKV3vrRYzPGzhGk2ljFze rDckDX9hHEBvkyrqv915RtQa y8ooSVQmoOMaGIugFIV9U63x b3I6 JKHaIWTuWGX0rOH0vI3qcBlg bjogbGVmdDsgdmVydGljYWwt HLwyF290FZIkiDtiLkLclVQh Ojwv dGQ+LL15yj77M6VnDzddYif7 ZNHjRBX9lYF6hV4eKHCjPFvx h8E7rUQ2Q3WjlwEwoi7gd4qz YXBz ZTo (more content not included)... [facility] Coding Summary HTMLBase 64 VuhsjkgoOZm1mMg+PGhlYWQ+ PI8DWREuO13fpCSvbN0AP7eI CE0ARMQPTSFDBQ0UUU1muLL7 CXbhH3XaovXo BzrmaDMsKL96YFb6HRP9vTel ZFbemJ0ugXSwN5j4XcDzOE79 pL47HEfoTEHiDcS8LhZwkmkn bWFy T9yeSjGfpSAaMuo+PHRhYmxl IHdpZHRoPScxMDAlJyBzdHls MW1zEl8dAINiJOKmlArcvGXa OiBj e4feEVAsAYyuYY0unCzjF7Ok qOQ8DNCwa4i1Xg47bIY+PHRk NZH6eOcuXYkkh202MqBhl2oh IDM3 vXWrQAwfZEL3H43rc0R3ODJt CNUuXJI2gUN1jL4yuHushpkb F8GmiKOoVtS5ZYB1cZKguU1c bGln bzcrsC9jPnp+V62ZML4GBCEU OF4CPtj1L4OqHddrlJP+PC90 LSSxQR01cBPrvNDsn9iuaUw4 JzEw QDBxVOG3iQosWTncu6JdVQCr V30ksBExm8F3MGZukThjlVOn YfYnrDO4qD6xIYxvcrnqc8ii dzsn Tocay4aclo38yM81K98wKJlv HWJlCEI5KJIbSJFrwNmqwf2d mK8bBh4+UPope4fvv4pqhXi0 IjIw YIRjwgEybUeiTHI8a3FfPj19 W1CtkZwrm6AnGfw7nj87xSZh r8K9lSO0BCyqJAIahD4fXLaf ZnQ6 RBDaTmYaqV04wCQhMUhwKl7h hNvaiFjhRR9nSAMvtmnfDRNb xW3vROXrkTSbpAzmNI7jUSFy bjtm h895FiLjXPY5PTFygQTlI8Lp sO9nBbQpDJShHHUkS2EewRQo OIchW039LNqpRwT9BSNgnmJu Y2Fs PSPyiIqiSiW5o9Y8Hj5Xb2Gn uzcmWKI9OLytVCE8DxN0VbGr XlJ1X0AjAhm4LPGyaMuoEJ8k J3Bh LDEftprnuniivIA3EGMuBXDy gE38rFDlGVpeZv5gg2L2s865 ZKAvHMFiuR70Ta8imZfuVIRa dCBU cR8yrfgvh8mnbgepKmWsQNNy GKm5VVb9YGJmfYctUbHoEXQ8 KkP9LPO1iYFrkP8dmUleuypr dG9w Oyc+A57cjA0bEJW5HCL0qopj KQXzqlCcID11OH71I0ApSqfb dGFibGU+RUGuipFjoKysVO1b YmFj h7aqg5DrZCoqD7IzXOSwAIxa Rrf3OPDfVCE7nRA3lY8uCAWx ZMfum3S7aIH0W1LmixJgxn7f b2xs KQDpUPgmG61pnHAss4W4KHFv bYN1QZWdlJtsKgCcvV65Xwj+ JENbnVqhz1RqRmzfk9pjf3if dGg9 TxFqBBTlzzGiwCqpHOM3u2Mi Wt49F28xSBctCGVfSDGbVKHu ZITeqFxgil3rwW7sVw7+PGNv bCB3 oXF4fX1wNWMtKqK8SIusZ096 OcEliGYdZfqsd2kmx7afpTh6 MlUjWRTadiIzlXcxRRH4a1Gz Lz48 H03iVOwwTIFqDAKqRHAdZSAz xEszer2bnT6aQg4+SW6wb6qr vt46vM58eOO+CFNdDRO6cJru PSdw DECfdQ4wVPtaWeZ9ZSKjCyGb vD21bOOqHAdiLu1clHohmUwx TL0nMYJtdgvwr325UlYtz2qj IDEw cEUeGQijEWV6G75ph6H9TKRe QQQuLDH1aJG9xZ8qqJcdencg bGVmdDsgdmVydGljYWwtYWxp Z246 IHRvcDsnPlBhdGllbnQgTmFt QLy0N8VwSbi5MDHnoMajLD6w bHBvLDuaLk7voHrmrYppVO7e NTBp rjzqm307LeOfe7mpJFMzzUQd GXvwJMO5U40vt6W0JNKsXRNm RND6cSO1kH6vkFyvlsnsnRHy dDsg ltCoqOrlRGmnISnsS015WIWi pAwwXpIagwWoBNBghUD6SL25 BZ73rGMcn3N0bDC3B0IfEPWt bmct sxvhbFQ9YEHgJVUfkD12Cz6x wBcjSd7oXESfVMS7LRUkmTFy Y1LrnE4pAlFfMVHfZPNzY1Hn eHQt TXpdE880YZvyPqF3ETNfilTi Y9BkGSKmhLwcXtA9x5N3Lp1D I7K5PE07VZ17vPKvc0M0vOJ5 J3Bh BQBgoaomzjitnHW3KIBnUPMq eR56Aw0fhVfcTy1xIUCuPHS7 EWSxfZBgW5BnmK1cTpGbWYQd MDAw S3YpoCSpRNumN686OEcvGtB3 KIFobkStT2JcHRYcqWzdXuF6 l8G0Ac6CIRc6YW27TL70qYPq c3R5 xSY2Q6XvFRZidtetweyywRM8 FBWrGTLtuJ38Uz6bvDxiZs6e BCGhUFL9GGFdwLQbI2SazJ6l OiAj PGMgVUSvN2CgjJEtSLqkZ842 ZUkiNyX8TAXzvjPqG4GfBFNa tAraSkW8t1S2Br7MBWAzBI36 IFR5 mUD9WC27GZ48Y6MyEkwglZZq bGU+PHRhYmxlIHdpZHRoPScx WKJsVdYbzYqsYM1jKl5zHIMn LWNv mFncaAWfTrWcf5xoTZDxVMoi RD3rrIbxP9StwNG4XYKwe0i5 Qs12L23tT4WzgBM+PGNvbCB3 aWR0 wL2rMxSxUeI4TUisX549KkFg wLNbTdlqc1vvx5okdHz7WxG1 KWNbpvXwrKruLZC5m6XxHk25 Y29s IHdpZHRoPSIxNSUiIHZhbGln bd4ftK5rMe8+HYRthZE4aZS8 xY0sRiQsNcG4OFvkL415BzOa cCIv Epkat9rth1xgnDy9PvLaRUZp yvTcnRmgPAM4w8ZfHm25P7Ok fXast3HkYpj9ah08rLHri8M8 bGU9 I0BvIRFqsnlktFEssZkqEN0c TXCdkoeiZRHlzN0sALFoT7u0 OyHcMmD5PAlrI2EoftL3PCZx cHQg KTzmVMY8Z82ol5S7QNFpJMQb GBE0xNS8mN1rlIvzgkdcyAEh sVcvznUazAewGHtaKJpnR768 IHRv qYkmBMTaiW7lSUJvhXMmvBlo ES7mEGOyqzmnVrUPAtZLHqSY LCBNRUdBTiBNQVJJRTwvdGQ+ PHRk NJP9jKqkVLanIKXuwO2yPSRh P8w0AzCzDoN6VOfrZ9AoGFFa nslqHx54gC6vSrWpNzV4YRtm O2Zv rwP0GVUqiRYvTOylKXA4T84q k4D6JGTpSUGaBQN9cOY6oG1h bGlnbjogbGVmdDsgdmVydGlj YWwt VNfrX094MDEljQzcFjDhPgX3 SbA0BGK2I9MeOei9BBKulBnv DW2ywTDsSIbxPa5dsNkziJbz MC4w EEMhoeifWYPrtD8hNHEjqSVx xFdmXR9sFGLfefbsz852KlVt GBO2FTTitSVtS7RfpM0kFqKy MDAw CSSrS9OroGPwXNmqM581IIly NqD9ETNaznPfD2DjIRUgoFzy AbR4t7M0Yo8lDCMGHLJltxmw dGQ+ OYVdEHU8nLbrOEzmPOHfcM3k KPTcR6l6TjLwQrI7LFgsT4Tn NKYtxlvmAm71gQ1fEfAnEkO3 MGlu C3AuujI8YMYpaBFlWSmhHLI4 P74jq4E5AJOeWMKxHNL3xCG1 fH0fmNlfievyiEHuoNrgvuNw dGlj WTibBFghT487BYBkaEqjMbXF TUFMRTwvdGQ+GSWaUJZ2pLnl PZkbKYPoaJ5dSROeK9h4UdGn LjA1 XDlcG5OhMAOmmacnCy66dE3i JhHiOrF8NWuyW3EhsjA8RPJe bJMgQIlcACE7F53ui6P8ATFu MDAw IGO2sNZ0lE3rtOcqkphuyBSz zQhpatYssMwfJKklOWuxV580 KZOqfEmwIxSbRPCwIZ9ajAsj dGQ+ CN39lw64L0CzWlwtUup3WIDz VGL7hDQ3xM2lALKpDVark3J4 fOX8Y2LphuKnvg9ll0slFPJf ZTog C71pzCFfu5X5VEUnhIF4KUEt qXtrEjAdhT84Odd+PGNvbGdy p4YyJtbxu7bss8yfjEv6MtTv JSIg sjLimDkdKIQ8g7HkYj03E98e IHdpZHRoPSIzMCUiIHZhbGln vq0rhA4xFy3+DZBhmKG6gXR5 aD0i ToSbMrJ6EOkrD744YdSjfUDq Njobu5khp4cazAm7FjTmAIMt hwLydFtnDKL3j7OkHd32F5Pt bGdy v9PfVlx0nh18gVLxl9L1hYL1 O6CsFALnzikavCSgcVnqCV5g LOGlcpioIJTadW7oZPUbD7j2 OiAw TsD3TPxtG6YtxdG7CGTjeQKl YGPxqSWYhS8pcadkv2lxheyp MqHdINLiKLn8PUs5YGZkhWwk OiBs DUM0WxM0KAZ1fYNjbS7wiIvv xiqnjE7uTli+GXx0k5xodRFg LV3cnMR7TY02TE46cIAjt6Q2 bGU9 C4SjSIGfnuvudxjmwKB9JYKk PWLjhY54Eg7rtBgrPe4aZVLa TEV2XAUzwORdN5JuhC7aDxXx MDAw CTSzB1VrrHHtHRoqK818BLwd TcG3RUPminNbA7ZzVYWubFad TrX9u2L6Mp3OBX16LN30WN45 dGQg x6Y2qGI0J0FoAPEkietvtbuw sOY1RTDiYAUrvK31Nl7loSyd Nb4eYDFsEWH4GXEnfFTgI7Hi bG9y OjRxIQUlKAUdC7TvzLTpDKlf H113WFyjKmG3KFXzyiWxE9Kx OKTwcNmvBjP6l1Z0Ht8OHi90 PC90 KL26lEEyd7R7tZI6J6DoRWLw qniaapmelMT0BAByYZYgdE17 Qj3ivVmhYx9tLANuZOZ5YZYc bWVz Y8ZezF1tWgNtNLNwBVLvC7Yl vJNcNSxhQ735ELfiFlY4YYPl wlYqV0SlZCVihVbtZcS2l7D8 Jz5Q XSbovgg4T2DgVfnfwPY+PC90 XRPnEA70qAMnbLYwo1luvWr5 GzXhBDCeJDE6kOblTUucq5Dh ZXIt Y29 (more content not included)... Normal [facility] .Auto Diff 110-11-2020 Auto [place] % 6 % Normal 05-04 [facility] Comment on above: Performed By: #### 7 [id number], [id number], [id number], [id number] ####[facility] (DEFAULT)[address] [place] [address] Baso Abs# 0.0 x10 Normal 0.0-0.2 [facility] Comment on above: Performed By: #### 7 [id number], [id number], [id number], [id number] ####[facility] (DEFAULT)[address] [place] [address] 07370 Basophils/100 WBC (Bld) 0.3 % Normal 0.2-2.0 [facility] Comment on above: Performed By: #### 7 [id number], [id number], [id number], [id number] ####[facility] (DEFAULT)[address] [place] [address] 94616 Eos Abs# 0.2 x10 Normal 0.0-0.4 [facility] Comment on above: Performed By: #### 7 408875, [id number], [id number], [id number] ####[facility] (DEFAULT)[address] [place] [address] 91211 Eosinophils/100 WBC (Bld) 3.4 % Normal 0.9-4.0 [facility] Comment on above: Performed By: #### 7 707692, [id number], [id number], [id number] ####[facility] (DEFAULT)[address] [place] [address] 73068 Lymph Abs# 2.5 x10 Normal 1.3-2.9 [facility] Comment on above: Performed By: #### 7 650419, [id number], [id number], [id number] ####[facility] (DEFAULT)[address] [place] [address] 73343 Lymphocytes/100 WBC (Bld) 41 % Normal 14-48 [facility] Comment on above: Performed By: #### 7 [id number], [id number], [id number], [id number] ####[facility] (DEFAULT)[address] [place] [address] 45421 [place] Abs# 0.4 x10 Normal 0.0-0.8 [facility] Comment on above: Performed By: #### 7 585640, [id number], [id number], [id number] ####[facility] (DEFAULT)[address] [place] [address] 86581 Neut Abs# 3.0 x10 Normal 1.5-9.2 [facility] Comment on above: Performed By: #### 7 288845, [id number], [id number], [id number] ####[facility] (DEFAULT)[address] [place] [address] 28553 Neutrophils/100 WBC (Bld) 50 % Normal 44-88 [facility] Comment on above: Performed By: #### 7 681260, [id number], [id number], [id number] ####[facility] (DEFAULT)[address] [place] [address] CBC w/ Auto Diffon 1 Erythrocyte distribution width (RBC) [Ratio] 13.2 % Normal 11.5-15.0 [facility] Comment on above: Performed By: #### 7 074649, [id number], [id number], [id number] #### [facility] (DEFAULT) [address] [place] [address] Hematocrit (Bld) [Volume fraction] 36.8 % Normal 33.7-40.4 [facility] Comment on above: Performed By: #### 7 099179, [id number], 01742134, [id number] #### [facility] (DEFAULT) [address] [place] [address] 31910 Hemoglobin (Bld) [Mass/Vol] 12.4 g/dL Normal 11.3-15.9 [facility] Comment on above: Performed By: #### 7 912876, [id number], 79573808, [id number] #### [facility] (DEFAULT) [address] [place] [address] 29249 Instr WBC 6.1 x10 Invalid Interpretation Code [facility] Comment on above: Performed By: #### 7 290780, [id number], [id number], [id number] #### [facility] (DEFAULT) [address] [place] [address] 11093 Man Diff? Auto Normal [facility] Comment on above: Performed By: #### 7 429199, [id number], [id number], [id number] #### [facility] (DEFAULT) [address] [place] [address] 74532 MCH (RBC) [Entitic mass] 29 pg Normal 24-34 [facility] Comment on above: Performed By: #### 7 096071, [id number], [id number], [id number] #### [facility] (DEFAULT) [address] [place] [address] MCHC (RBC) [Mass/Vol] 34 g/dL Normal 26-37 [facility] Comment on above: Performed By: #### 7 926299, [id number], [id number], [id number] #### [facility] (DEFAULT) [address] [place] [address] MCV (RBC) [Entitic vol] 87 fL Normal 81-100 [facility] Comment on above: Performed By: #### 7 371104, [id number], 27241152, [id number] #### [facility] (DEFAULT) [address] [place] [address] Platelet 204 x10 Normal 138-427 [facility] Comment on above: Performed By: #### 7 523804, [id number], [id number], [id number] #### [facility] (DEFAULT) [address] [place] [address] Platelet mean volume (Bld) [Entitic vol] 9.6 fL Normal 6.3-10.2 [facility] Comment on above: Performed By: #### 7 488173, [id number], 86736703, [id number] #### [facility] (DEFAULT) [address] [place] [address] RBC 4.25 x10 Normal 3.70-5.30 [facility] Comment on above: Performed By: #### 7 232618, [id number], [id number], [id number] #### [facility] (DEFAULT) [address] [place] [address] WBC 6.1 x10 Normal 3.5-10.5 [facility] Comment on above: Performed By: #### 7 215127, [id number], 80563832, [id number] #### [facility] (DEFAULT) [address] [place] [address] CMP Standardon 10-11-2020 Albumin [Mass/Vol] 3.9 g/dL Normal 3.5-5.0 [facility] Comment on above: Performed By: #### 7 614425, [id number], [id number], [id number] ####[facility] (DEFAULT)[address] [place] [address] 63410 Albumin/Globulin [Mass ratio] 1.3 {ratio} Low 1.4-2.6 [facility] Comment on above: Performed By: #### 7 711592, [id number], 85735348, [id number] ####[facility] (DEFAULT)[address] [place] [address] 91382 Alk Phos 67 IU/L Normal 32-91 [facility] Comment on above: Performed By: #### 7 593889, [id number], [id number], [id number] ####[facility] (DEFAULT)[address] [place] [address] 33770 ALT [Catalytic activity/Vol] 28.0 U/L Normal 14.0-54.0 [facility] Comment on above: Performed By: #### 7 514233, [id number], 35651193, [id number] ####[facility] (DEFAULT)[address] [place] [address] 59383 Anion gap [Moles/Vol] 14.0 mmol/L Normal 5.0-19.0 [facility] Comment on above: Performed By: #### 7 380413, [id number], [id number], [id number] ####[facility] (DEFAULT)[address] [place] [address] 60342 AST [Catalytic activity/Vol] 16 U/L Normal 15-41 [facility] Comment on above: Performed By: #### 7 912367, [id number], 63015559, [id number] ####[facility] (DEFAULT)[address] [place] [address] Bili Total 0.3 mg/dL Normal 0.3-1.2 [facility] Comment on above: Performed By: #### 7 986983, [id number], 26919074, [id number] ####[facility] (DEFAULT)[address] [place] [address] 07386 Calcium [Mass/Vol] 9.0 mg/dL Normal 8.9-10.3 [facility] Comment on above: Performed By: #### 7 291995, [id number], [id number], [id number] ####[facility] (DEFAULT)[address] [place] [address] 92324 Chloride [Moles/Vol] 109 mmol/L Normal 101-111 [facility] Comment on above: Performed By: #### 7 [id number], [id number], [id number], [id number] ####[facility] (DEFAULT)[address] [place] [address] 71158 CO2 [Moles/Vol] 21 mmol/L Normal 21-32 [facility] Comment on above: Performed By: #### 7 691261, [id number], [id number], [id number] ####[facility] (DEFAULT)[address] [place] [address] 65473 Creatinine [Mass/Vol] 0.90 mg/dL Normal 0.60-1.30 [facility] Comment on above: Performed By: #### 7 [id number], [id number], [id number], [id number] ####[facility] (DEFAULT)[address] [place] [address] 55569 Globulin (S) [Mass/Vol] 3.1 g/dL Normal 1.5-4.3 [facility] Comment on above: Performed By: #### 7 610427, [id number], [id number], [id number] ####[facility] (DEFAULT)[address] [place] [address] 87937 Glucose [Mass/Vol] 95.0 mg/dL Normal 74.0-118.0 [facility] Comment on above: Performed By: #### 7 205742, [id number], [id number], [id number] ####[facility] (DEFAULT)[address] [place] [address] 55694 Osmolality 282 mOsm/L Invalid Interpretation Code [facility] Comment on above: Performed By: #### 7 864645, [id number], [id number], [id number] ####[facility] (DEFAULT)[address] [place] [address] 43859 Potassium [Moles/Vol] 4.0 mmol/L Normal 3.6-5.1 [facility] Comment on above: Performed By: #### 7 085792, [id number], [id number], [id number] ####[facility] (DEFAULT)[address] [place] [address] 20432 Protein [Mass/Vol] 7.0 g/dL Normal 6.5-8.1 [facility] Comment on above: Performed By: #### 7 748280, [id number], [id number], [id number] ####[facility] (DEFAULT)[address] [place] [address] 58501 Sodium [Moles/Vol] 140.0 mmol/L Normal 136.0-144.0 [facility] Comment on above: Performed By: #### 7 117052, [id number], 61041726, [id number] ####[facility] (DEFAULT)[address] [place] [address] 85356 Urea nitrogen [Mass/Vol] 20 mg/dL Normal 8-26 [facility] Comment on above: Performed By: #### 7 946763, [id number], [id number], [id number] ####[facility] (DEFAULT)[address] [place] [address] 65094 Urea nitrogen/Creatinine [Mass ratio] 22.2 mg/mg High 4.6-16.2 [facility] Comment on above: Performed By: #### 7 037481, [id number], [id number], [id number] ####[facility] (DEFAULT)[address] [place] [address] 46948 Discharge Instructionson Discharge Instructions [id number] TIFF Normal [facility] ED Clinical Summaryon 2020 ED Clinical Summary [facility] - Emergency Department [address] [place] [address] ED Clinical Summary PERSON INFORMATION Name: YANI WOODY Age: 30 Years Sex: FEMALE : 1990 MRN: Acct#: Visit Reason: Pelvic pain; PELVIC AREA PAIN Arrival: 10/11/2020 09:15:57 Discharge: 10/11/2020 12:33:00 LOS: 000 03:18 Check In: 10/11/2020 09:15:57 Checkout:10/11/2020 12:33:00 Address: [address] [place] [address] PCP: Provider, None PROVIDER INFORMATION Provider Role Assigned Unassigned DAVID GALVAN ED PA 10/11/2020 09:24:51 Linn Decker ACADEMIC AFFAIRS COORDINATOR Nurse 10/11/2020 09:28:06 Kristi Case ACADEMIC AFFAIRS COORDINATOR Nurse 10/11/2020 11:45:12 VITALS INFORMATION Vital Sign [...] test which were negative. She contacted her family and consumer science professor who indicated he could not see her [...] - pharynx pink and moist. NECK: -Supple ([id number]): non-tender. CARD: -Rate and rhythm: Regular -Edema: No -Calf pain: No RESP: -Respiratory effort and chest excursion with respirations: Normal -Breath sounds equal bilaterally: Clear -Wheezes: No -Rales: No BACK: -Signs of pain with movement: No ABD: -Distended: No -Bruits: No -Bowel sounds: Normal. -Deep palpation: Non-tender, soft, no guarding or r (more content not included)... Normal [facility] ED Note - Physicianon 2020 ED [...] test which were negative. She contacted her family and consumer science professor who indicated he could not see her [...] - pharynx pink and moist. NECK: -Supple ([id number]): non-tender. CARD: -Rate and rhythm: Regular -Edema: [...] I r (more content not included)... Normal [facility] ED Note-Nursingon 10-11-2020 ED Note-Nursing Patient arrives to [facility] ED via private car with c/o [...] within reach. Will continue to monitor. Normal [facility] ED Patient Summaryon 021 ED Patient Summary [facility] - Emergency Department [address] [place] [address] PATIENT DISCHARGE INSTRUCTIONS Patient Information Name: YANI WOODY Age: 30 Years Date of : 1990 Reason For Visit: Pelvic pain; PELVIC AREA PAIN Arrival Time: 10/11/2020 09:15:57 Primary Care Physician: Provider, None Attending Physician: Linus Neumann MD Comment: Visit Diagnosis: Diagnoses This Visit Ovarian cyst (N83.209) Pelvic congestion syndrome (N94.89) Pelvic pain ([id number] -[id number]) Prescription Information: If you have been given a prescription for narcotics, seek immediate medical attention if you have any difficulty breathing or any sudden status changes such as confusion and sleepiness. If you or anyone you know is experiencing suicidal thoughts, mental health, alcohol and/or drug addiction problems; contact the [facility] Recovery [facility] 13/11 Crisis Hotline -Text 4HXQO jr 425484. If you received any narcotics, sedation, or [...] documents With: Address: When: Cordelia Rowan [address] [place] [address] Business (1) Within 2 to 4 days Comments: Follow-up with family and consumer science professor in the next few days for reevaluation. Return at anytime for reevaluation or if you have worsening symptoms, vaginal bleeding, chest pains, shortness of breath or any other problems. Continue to stay hydrated. Medication Information: The exam and treatment you received today in the [facility] Emergency Department were for an urgent problem and are not intended as complete care. It is important for you to follow up with a doctor, nurse practitioner, or physician?s accounts payable assistant for ongoing care. If your symptoms [...] so we can reach you if necessary. [facility] Emergency Department has provided you with a complete list of medications post discharge. Please inform your primary therapist/provider of your visit and for further instruction [...] (Inserted Image. Unabl (more content not included)... [facility] Extra Greenon 10-11-2020 Tube Collected Yes Invalid Interpretation Code [facility] Comment on above: Performed By: #### 7 [id number], [id number], [id number], [id number] #### [facility] (DEFAULT) [address] [place] [address] 96726 Lactic Acidon 10-11-2020 Lactic Acid 12.4 mg/dL Normal 4.5-19.8 [facility] Comment on above: Performed By: #### 2 [id number] ####[facility] (DEFAULT)[address] [place] [address] 70583 Test Urine 1on U Preg Negative [facility] Comment on above: Performed By: #### 3 [id number] ####[facility] (DEFAULT)[address] [place] [address] 07914 U Preg Internal Control Pass [facility] Comment on above: Performed By: #### 3 [id number] ####[facility] (DEFAULT)[address] [place] [address] 84322 UA Pqexi2yy 10-11-2020 UA Bacteria Rare [facility] Comment on above: Performed By: #### 2 [id number], [id number] ####[facility] (DEFAULT)[address] [place] [address] 77115 UA RBC 0-2 Normal [facility] Comment on above: Performed By: #### 2 [id number], [id number] ####[facility] (DEFAULT)[address] [place] [address] 80422 UA Squam Epi Few Normal [facility] Comment on above: Performed By: #### 2 [id number], [id number] ####[facility] (DEFAULT)[address] [place] [address] 06352 UA WBC 0-2 [facility] Comment on above: Performed By: #### 2 [id number], [id number] ####[facility] (DEFAULT)[address] [place] [address] UA w Micro, if Ind Standardo n 10-11-2020 Micro? Indicated Normal [facility] Comment on above: Performed By: #### 2 [id number], [id number] ####[facility] (DEFAULT)[address] [place] [address] Breakpoint UA [facility] Comment on above: Performed By: #### 2 [id number], [id number] ####[facility] (DEFAULT)[address] [place] [address] Color (U) Yellow Normal [facility] Comment on above: Performed By: #### 2 [id number], [id number] ####[facility] (DEFAULT)[address] [place] [address] 60394 Glucose (U) [Mass/Vol] Negative [facility] Comment on above: Performed By: #### 2 [id number], [id number] ####[facility] (DEFAULT)[address] [place] [id number] Ketones Ql (U) Negative [facility] Comment on above: Performed By: #### 2 [id number] ####[facility] (DEFAULT)[address] [place] [address] 16979 UA Bilirubin Negative Normal [facility] Comment on above: Performed By: #### 2 [id number] ####[facility] (DEFAULT)[address] [place] [address] 87914 UA Blood TRACE Abnormal NEGATIVE [facility] Comment on above: Performed By: #### 2 [id number], [id number] ####[facility] (DEFAULT)[address] [place] [address] 12219 UA Clarity CLEAR Normal CLEAR [facility] Comment on above: Performed By: #### 2 [id number], [id number] ####[facility] (DEFAULT)[address] [place] [address] 92884 UA Leuk Est Negative Normal NEGATIVE [facility] Comment on above: Performed By: #### 2 [id number], [id number] ####[facility] (DEFAULT)[address] [place] [address] 62921 UA Nitrite Negative Normal NEGATIVE [facility] Comment on above: Performed By: #### 2 [id number], [id number] ####[facility] (DEFAULT)[address] [place] [address] 40145 UA pH 6.0 Normal 5-8 [facility] Comment on above: Performed By: #### 2 [id number], [id number] ####[facility] (DEFAULT)[address] [place] [address] 14840 UA Protein Negative Normal [facility] Comment on above: Performed By: #### 2 [id number], [id number] ####[facility] (DEFAULT)[address] [place] [address] 24028 UA Spec Grav 1.025 Normal 1.001-1.035 [facility] Comment on above: Performed By: #### 2 [id number], [id number] ####[facility] (DEFAULT)[address] [place] [address] 86724 UA Urobilinogen 0.2 mg/dL Normal 0.2-1.0 [facility] Comment on above: Performed By: #### 2 [id number], [id number] ####[facility] (DEFAULT)[address] [place] [address] 41453 Urine Source Clean Catch Normal [facility] Comment on above: Performed By: #### 2 [id number], [id number] ####[facility] (DEFAULT)[address] [place] [address] US Pelvis Non-OB Completeon 10-11-2020 US Pelvis [...] MD 10/11/20 12:29 p Technologist: PM Normal [facility] US Transvaginalon 10-11-2020 US Transvaginal US [...] Dominguez MD 10/11/20 12:29 p Technologist: PM [facility] Video Visit - Telehealtho n 01-28-2020 Video Visit - Telehealth Chief Complaint Medication follow up via [email or web address] video Subjective Interval History/HPI This visit was conducted via two-way, real-time interactive video communications from my office using [employer] due to the restrictions of the COVID-19 pandemic. No physical exam was conducted other than those areas of the body visible to telecommunications with the patient located at [address] [place] [phone], with no one else in attendance. If [...] day(s), # 42 tab(s), Refills(s) 5, Pharmacy: [facility]/pharmacy #[id number], 156, cm, 01/28/20 8:32:00 EDT, Height/Length Dosing, 124, kg, 01/28/20 8:32:00 EDT, Weight Dosing 3. High risk medication use (Z79.899: Other moth exterminator (current) drug therapy) Orders: lamotrigine, 300 mg = 2 tab(s), Oral, Bedtime, # 60 tab(s), Refills(s) 5, Pharmacy: [facility]/pharmacy #[id number], 156, cm, 01/28/20 8:32:00 EDT, Height/Length Dosing, 124, kg, 01/28/20 8:32:00 EDT, Weight Dosing lurasidone, 60 mg = 1 tab(s), Oral, Daily, @supper with food, # 30 tab(s), Refills(s) 5, Pharmacy: [facility]/pharmacy #[id number], 156, cm, 01/28/20 8:32:00 EDT, Height/Length Dosing, 124, kg, 01/28/20 8:32:00 EDT, Weight Dosing metformin, 500 mg = 1 tab(s), Oral, BID, # 60 tab(s), Refills(s) 5, Pharmacy: [facility]/pharmacy #[id number], 156, cm, 01/28/20 8:32:00 EDT, Height/Length Dosing, 124, kg, 01/28/20 8:32:00 EDT, Weight Dosing General Treatment Plan Pharmacological management: Alternative medication plans were discussed with the patient/guardian. All relevant side effects and potenti (more content not included)... Normal [facility] Comment on above: Result Comment: Elec tronically Signed By: TERE TENORIO, Leiaender\.br\Date and Time Signed: 01/28/20 09:14 EDT Vital Signs Date Time Vital Sign Value Performing Clinician Facility 12-17-2023 13:04-0400 Body height 152.4 cm [facility] 12-17-2023 13:04-0400 Body mass index (BMI) [Ratio] 59.5 kg/m2 [facility] 12-17-2023 13:04-0400 Body temperature 97.5 [degF] [facility] 12-17-2023 13:04-0400 Body weight 138.4 kg [facility] 12-17-2023 13:04-0400 Diastolic blood pressure 68 mm[Hg] [facility] 12-17-2023 13:04-0400 Heart rate 92 /min [facility] 12-17-2023 13:04-0400 Respiratory rate 18 /min [facility] 12-17-2023 13:04-0400 SaO2% (BldA) [Mass fraction] 95 % [facility] 12-17-2023 13:04-0400 Systolic blood pressure 125 mm[Hg] [facility] 06-29-2023 11:10-0500 Body height 154.9 cm Lindseyangel Mcmahon [employer] B[employer]ER-DIRECTOR OF DIRECT MARKETING Work Phone: [facility] 06-29-2023 11:10-0500 Body mass index (BMI) [Ratio] 56.08 kg/m2 Lindseyangel Mcmahon [employer]ER-DIRECTOR OF DIRECT MARKETING Work Phone: [facility] 06-29-2023 11:10-0500 Body weight 134.54 kg Lindsey Kredorys [employer]ER-DIRECTOR OF DIRECT MARKETING Work Phone: [facility] 06-29-2023 11:10-0500 Diastolic blood pressure 84 mm[Hg] Lindsey Mcmahon [employer]ER-DIRECTOR OF DIRECT MARKETING Work Phone: [facility] 06-29-2023 11:10-0500 Heart rate 93 /min Lindsey Mcmahon APRN-DIRECTOR OF DIRECT MARKETING Work Phone: [facility] 06-29-2023 11:10-0500 SaO2% (BldA) [Mass fraction] 95 % Lindsey Mcmahon APRN-DIRECTOR OF DIRECT MARKETING Work Phone: [facility] 06-29-2023 11:10-0500 Systolic blood pressure 152 mm[Hg] Lindsey Mcmahon [employer]ER-DIRECTOR OF DIRECT MARKETING Work Phone: [facility] 05-03-2023 13:16-0500 Body mass index (BMI) [Ratio] 54.61 kg/m2 Katerin Haynes [employer]ER-DIRECTOR OF DIRECT MARKETING Work Phone: [facility] 05-03-2023 13:16-0500 Body weight 131.09 kg Katerin Haynes [employer]ER-DIRECTOR OF DIRECT MARKETING Work Phone: [facility] 05-03-2023 13:16-0500 Diastolic blood pressure 74 mm[Hg] Katerin Haynes [employer]ER-DIRECTOR OF DIRECT MARKETING Work Phone: [facility] 05-03-2023 13:16-0500 Heart rate 88 /min Katerin Haynes [employer] B[employer]ER-DIRECTOR OF DIRECT MARKETING Work Phone: [facility] [employer] [facility] 05-03-2023 13:16-0500 Respiratory rate 18 /min Katerin Haynes [employer]ER-DIRECTOR OF DIRECT MARKETING Work Phone: [facility] 05-03-2023 13:16-0500 SaO2% (BldA) [Mass fraction] 98 % Katerin Haynes [employer]ER-DIRECTOR OF DIRECT MARKETING Work Phone: [facility] 05-03-2023 13:16-0500 Systolic blood pressure 126 mm[Hg] Katerin Haynes [employer]ER-DIRECTOR OF [employer] MARKETING Work Phone: [facility] 02-05-2023 09:45-0400 Body height 154.94 cm Jovita Murcia Other [facility] Other 02-05-2023 09:45-0400 Body mass index (BMI) [Ratio] 57.32 kg/m2 Jovita Murcia Other [facility] Other 02-05-2023 09:45-0400 Body temperature 98 [degF] Jovita Murcia Other [facility] Other 02-05-2023 09:45-0400 Body weight 137.62 kg Jovita Murcia Other [facility] Other 02-05-2023 09:45-0400 Respiratory rate 18 /min Jovita Murcia Other [facility] Other 02-05-2023 09:45-0400 SaO2% (BldA) [Mass fraction] 97 % Jovita Murcia Other [facility] Other 12-22-2022 09:30-0400 Diastolic blood pressure 96 mm[Hg] MD Aline Villalobos Work Phone: [facility] 12-22-2022 09:30-0400 Heart rate 60 /min MD Aline Villalobos Work Phone: [facility] 12-22-2022 09:30-0400 Respiratory rate 16 /min MD Aline Villalobos Work Phone: [facility] 12-22-2022 09:30-0400 SaO2% (BldA) [Mass fraction] 99 % MD Aline Villalobos Work Phone: [facility] 12-22-2022 09:30-0400 Systolic blood pressure 154 mm[Hg] MD Aline Villalobos Work Phone: [facility] 12-22-2022 08:06-0400 Body height 152.4 cm MD Aline Villalobos Work Phone: [facility] 12-22-2022 08:06-0400 Body weight 137.89 kg MD Aline Villalobos Work Phone: [facility] 07-22-2022 11:35-0400 Respiratory rate 18 /min Inge Mojicaza DO Work Phone: [facility] 07-22-2022 08:00-0400 Body temperature 99 [degF] Inge Mojicaza DO Work Phone: [facility] 07-22-2022 08:00-0400 Diastolic blood pressure 63 mm[Hg] Inge Causeyazza DO Work Phone: [facility] 07-22-2022 08:00-0400 Heart rate 78 /min Inge Mojicaza DO Work Phone: [facility] 07-22-2022 08:00-0400 SaO2% (BldA) [Mass fraction] 99 % Inge Mojicaza DO Work Phone: [facility] 07-22-2022 08:00-0400 Systolic blood pressure 137 mm[Hg] Inge Causeyazza DO Work Phone: [facility] 07-18-2022 17:35-0400 Body height 154.94 cm Alesha Cortez Other [facility] Other 07-18-2022 17:35-0400 Body mass index (BMI) [Ratio] 62.16 kg/m2 Alesha Cortez Other [facility] Other 07-18-2022 17:35-0400 Body temperature 96 [degF] Alesha Cortez Other [facility] Other 07-18-2022 17:35-0400 Body weight 149.23 kg Alesha Cortez Other [facility] Other 07-18-2022 17:35-0400 Respiratory rate 18 /min Alesha Cortez Other [facility] Other 07-18-2022 17:35-0400 SaO2% (BldA) [Mass fraction] 97 % Alesha Cortez Other [facility] Other 07-15-2022 17:16-0400 Diastolic blood pressure 83 mm[Hg] Inge Causeyazza DO Work Phone: [facility] 07-15-2022 17:16-0400 Heart rate 97 /min Inge Causeyazza DO Work Phone: [facility] 07-15-2022 17:16-0400 Respiratory rate 16 /min Inge Causeyazza DO Work Phone: [facility] 07-15-2022 17:16-0400 Systolic blood pressure 142 mm[Hg] Inge Piazza DO Work Phone: [facility] 07-15-2022 15:44-0400 Body temperature 98.49 [degF] Inge Causeyazza DO Work Phone: [facility] 03-21-2022 10:30-0500 Body height 154.94 cm N[place] Wells Other [facility] Other 03-08-2022 02:06-0500 Body weight 141.0696 kg LILIA RUIZ [facility] Comment on above: Performed By: #### DAPHNE TOBIAS #### [facility] [address] [place] [address] Dr. Valeria Farris Encounters Encounter Date Encounter Type Care Provider Facility Start: 01-03-2024 End: 01-03-2024 ambulatory NOAH PETERSON Not Available Start: 12-31-2023 End: 12-31-2023 ambulatory CLAUDIA VILLAR [facility] Start: 12-29-2023 End: 12-29-2023 Emergency department patient visit CHAS BALDERAS [facility] Start: 12-17-2023 End: 12-17-2023 ambulatory [facility] Work Phone: Start: 12-17-2023 End: 12-17-2023 Patient encounter procedure [facility] Work Phone: Start: 12-17-2023 End: 12-17-2023 ambulatory NOAH NICHOLAS Not Available Start: 12-06-2023 End: 12-06-2023 ambulatory [facility] Start: 11-29-2023 End: 11-29-2023 ambulatory NOAH NICHOLAS Not Available Start: 11-12-2023 End: 11-12-2023 ambulatory CHARMAINE HAIRSTON Not Available Start: 11-08-2023 End: 11-08-2023 ambulatory [facility] Start: 10-29-2023 End: 10-29-2023 ambulatory NOAH NICHOLAS Not Available Start: 10-11-2023 End: 10-11-2023 ambulatory NOAH NICHOLAS Not Available Start: 10-09-2023 End: 10-09-2023 ambulatory [facility] Start: 09-11-2023 End: 09-11-2023 ambulatory NOAH NICHOLAS Not Available Start: 09-10-2023 End: 09-11-2023 Emergency department patient visit MANUEL GODINEZ [facility] Start: 08-28-2023 End: 08-28-2023 Emergency department patient visit CHAS BALDERAS [facility] Start: 08-24-2023 End: 08-24-2023 ambulatory CHAS BALDERAS Not Available Start: 08-14-2023 End: 08-14-2023 ambulatory NOAH NICHOLAS Not Available Start: 07-19-2023 End: 07-19-2023 ambulatory CHARMAINE HAIRSTON Not Available Start: 07-02-2023 Telephone encounter Lindsey philip [employer]ER-DIRECTOR OF [employer] MARKETING Work Phone: [facility] Comment on above: Sleep Lab (PSG) Start: 06-29-2023 End: 06-29-2023 ambulatory [facility] Start: 06-29-2023 End: 06-29-2023 Office outpatient new 45 minutes Lindsey Deanna Mcmahon [employer]ER-DIRECTOR OF [employer] MARKETING Work Phone: [facility] Comment on above: MOLINA (obstructive sle ep apnea) (Primary Dx); Morning headache; Memory loss; Fatigue, unspecified type; Snoring Start: 06-24-2023 Refill Katerin grewal [employer]ER-DIRECTOR OF [employer] MARKETING Work Phone: [facility] Start: 06-14-2023 End: 06-14-2023 ambulatory RAZIA MULLER [facility] Start: 06-06-2023 Refill Katerin grewal [employer]ER-DIRECTOR OF [employer] MARKETING Work Phone: [facility] Start: 06-05-2023 Orders Only Sadaf Louis [facility] Comment on above: Low back pain, unspe cified back pain laterality, unspecified chronicity, unspecified whether sciatica present (Primary Dx) Start: 05-29-2023 Telephone encounter Orders Sup port User Transcribe [facility] Comment on above: Sleep Lab Start: 05-22-2023 End: 05-22-2023 ambulatory CHAS BALDERAS Not Available Start: 05-16-2023 End: 05-17-2023 Emergency department patient visit LINA HUGHES [facility] Start: 05-15-2023 End: 05-15-2023 ambulatory NOAH PETERSON Not Available Start: 05-03-2023 End: 05-03-2023 ambulatory [facility] Start: 05-03-2023 End: 05-03-2023 Office outpatient visit 15 minutes Katerin Haynes [employer]ER-DIRECTOR OF [employer] MARKETING Work Phone: [facility] Comment on above: Acute non-recurrent maxillary sinusitis (Primary Dx) Start: 04-19-2023 End: 04-19-2023 ambulatory CHARMAINE HAIRSTNO Not Available Start: 02-05-2023 End: 02-05-2023 ambulatory Jovita Murcia Other [facility] Other Start: 02-05-2023 Office outpatient vi sit 15 minutes Jovita Murcia [facility] Start: 12-22-2022 End: 12-22-2022 ambulatory Aline Villalobos Facility:[facility] Start: 12-22-2022 End: 12-22-2022 ambulatory MD Aline Villalobos Work Phone: [facility] Work Phone: Start: 12-22-2022 End: 12-22-2022 Patient encounter procedure MD Aline Villalobos Work Phone: [facility] [place] Work Phone: Start: 12-20-2022 End: 12-20-2022 ambulatory Aline Villalobos Facility:[facility] Start: 12-20-2022 End: 12-20-2022 ambulatory MD Aline Villalobos Work Phone: [facility] Work Phone: Start: 12-20-2022 End: 12-20-2022 Patient encounter procedure MD Aline Villalobos Work Phone: [facility] [place] Work Phone: Start: 09-04-2022 ambulatory RAYSA LINN [...] 07-18-2022 End: 07-18-2022 ambulatory Alesha Cortez Other [facility] [employer] Other Start: 07-18-2022 Office outpatient vi sit [...] 03-21-2022 End: 03-21-2022 ambulatory [place] Other [facility] Other Start: 03-21-2022 Office outpatient ne w 30 minutes Naga Wells [facility] Start: 03-19-2022 End: 03-19-2022 ambulatory LILIA RUIZ Facility:[facility] Start: 03-15-2022 End: 03-16-[address] NOAH PETERSON Facility:[facility] Start: 03-03-2022 End: 03-04-[address] NOAH PETERSON Facility:[facility] Start: 02-27-2022 Blood pressure taking Jovita groves Other [facility] Other Start: 01-09-2022 End: 01-10-[address] [...] abnormal cervical Papanicolaou smear Jovita Murcia Other [facility] Other Start: 01-30-2018 End: 01-31-2018 Patient encounter DEFAULT PHYSICIAN Facility:[facility] Procedures Date Procedure Procedure Detail Performing Clinician Start: 12-22-2022 Investigation of transfusion reaction MD Aline Villalobos Work Phone: Start: 07-22-2022 Glucose blood reagent strip Hitesh A Gloucester DO Work Phone: Start: 07-21-2022 Glucose blood reagent strip Hitesh A Gloucester DO Work Phone: Start: 07-21-2022 Glucose blood reagent strip Hitesh A Gloucester DO Work Phone: Start: 07-21-2022 Glucose blood reagent strip Hitesh A Gl[place] DO Work Phone: Start: 07-21-2022 Blood count [...] in Cervix by Cyto stain Katerin Haynes APRN-DIRECTOR OF DIRECT MARKETING Work Phone: Start: 12-28-2021 Diabetes mellitus screening Jovita Murcia Other Start: 11-30-2021 Adult depression scr eening assessment Katerin Haynes APRN-DIRECTOR OF DIRECT MARKETING Work Phone: End: 04-13-2021 screening Jovita Murcia Other End: 07-27-2021 screening Jovita Murcia Other Counseling Jovita Murcia Other Depression screening Jovita Murcia Other visit Jovita watkins Other Plan of Treatment Date Care Activity Detail Author Start: 12-21-2029 DTaP,Tdap and Td Vaccines (7 - Td or Tdap) DTaP,Tdap and Td Vaccines (7 - Td or Tdap) [facility] Start: 12-21-2029 DTaP/Tdap/Td vaccine (7 - Td or Tdap) DTaP/Tdap/Td vaccine (7 - Td or Tdap) [facility] Start: 05-29-2025 Screening for malign ant neoplasm of cervix Pap Smear [facility] Start: 06-28-2024 Adult BMI Screening Adult BMI Screen ing [facility] Start: 06-28-2024 Tobacco Screening Tobacco Screening [facility] Start: 06-13-2024 Adult BMI Screening Adult BMI Screen ing [facility] Start: 05-16-2024 Adult BMI Screening Adult BMI Screen ing [facility] Start: 05-16-2024 Tobacco Screening Tobacco Screening [facility] Start: 05-03-2024 Adult BMI Follow Up Plan Adult BMI Follow Up Plan [facility] Start: 05-03-2024 Adult BMI Screening Adult BMI Screen ing [facility] Start: 05-03-2024 Tobacco Screening Tobacco Screening [facility] Start: 03-12-2024 Adult BMI Follow Up Plan Adult BMI Follow Up Plan [facility] Start: 01-09-2024 End: 01-09-2024 Patient encounter procedure 01/09/2024 9:00 AM EDT Office Visit [facility] [address] [place] [address] Lindsey Mcmahon, [employer] B[employer]ER-DIRECTOR OF [employer] MARKETING [address] [address] [facility] Start: 10-23-2023 End: 10-23-2023 Clinical Support 10/23/2023 8:00 PM EDT Clinical Support [facility] [address] [place] [address] [facility] Start: 07-11-2023 End: 07-11-2023 Patient encounter procedure 07/11/2023 10:00 AM EDT Office Visit [facility] [address] [place] [address] Lindsey Mcmahon, [employer] B[employer]ER-DIRECTOR OF [employer] MARK[employer]ING [address] [address] [facility] Start: 06-25-2023 End: 06-25-2023 Patient encounter procedure 06/25/2023 10:30 AM EST Office Visit [facility] [address] [place] [address] Terese Valladares [employer]ER-DIRECTOR OF [employer] MARKETING [address] [address] [facility] Start: 06-14-2023 End: 06-14-2023 Patient encounter procedure 06/14/2023 8:15 AM EST Appointment [facility] [address] [place] [id number] [facility] Start: 06-05-2023 End: [...] Office Visit [facility] [address] [place] [phone] Katerin Haynes, [employer] BENDER-DIRECTOR OF [employer] MARKETING [address] [place], [place] [id number] [facility] Start: 05-28-2023 End: 05-28-2023 Patient encounter procedure 05/28/2023 9:30 AM EST Office Visit [facility] [address] [place] [phone] Terese Valladares, [employer]ASS BLOCK BENDER-DIRECTOR OF [employer] MARKETING [address] [facility] [address] [place] [address] [facility] Start: 05-18-2023 Hemoglobin A1c measurement A1C test (Diabetic or Prediabetic) [facility] Start: 12-22-2022 COVID-19 Vaccine ( season) COVID-19 Vaccine ( season) [facility] Start: 12-22-2022 Influenza vaccination Influenza Vacc ine [facility] Start: 12-22-2022 Cerebrospinal fluid culture [facility] Start: 12-22-2022 End: 12-22-2022 [facility] Start: 11-30-2022 Depression Screening Depression Scre jaimie [facility] Start: 11-21-2022 Influenza vaccination Flu vacc ine (Season Ended) [facility] Start: 07-20-2022 End: 07-20-2022 Patient encounter procedure 07/20/2022 Routine Perinatology [facility] Start: 07-13-2022 End: 07-13-2022 Patient encounter procedure 07/13/2022 Routine Perinatology [facility] Start: 07-06-2022 End: 07-06-2022 Patient encounter procedure 07/06/2022 Routine Perinatology [facility] Start: 02-05-2022 Screening for malign ant neoplasm of cervix [facility] Start: 11-21-2021 Influenza vaccination Flu vaccine (# 1) [facility] Start: 01-21-2021 COVID-19 Vaccine (2 - Booster for Hipolito series) COVID-19 Vaccine (2 - Booster for Hipolito series) [facility] Start: 02-05-2013 Screening for malign ant neoplasm of cervix Pap smear [facility] [employer] Start: 02-05-2010 Hepatitis C screening Hepatitis C sc reen [facility] Start: 02-05-2007 HIV screening HIV screen [facility] Start: 2004 Depression Screen Depression Screen [facility] [employer] Start: 02-05-2002 Lipid panel Lipids [facility] [employer] Start: 02-05-1998 Pneumococcal 0-64 ye ars Vaccine (1 - PCV) Pneumococcal 0-64 years Vaccine (1 - PCV) [facility] Start: 02-05-1993 Varicella vaccine (1 of 2 - 2-dose childhood series) Varicella vaccine (1 of 2 - 2-dose childhood series) [facility] Bacteria identified in Unspecified specimen by Aerobe culture [facility] Bacteria identified in Unspecified specimen by Anaerobe culture [facility] End: 07-15-2022 COVID-19, Rapid COVID-19, Rapid Microbiology STAT One Time for 1 Occurrences starting 07/15/2022 until 07/15/2022 [facility] [employer] Phone: Comment on above: One Time for 1 Occur rences starting 07/15/2022 until 07/15/2022 CT CHEST PULMONARY EMBOLISM W CONTRAST CT CHEST PULMONARY EMBOLISM W CONTRAST Imaging STAT 07/15/2022 5:48 PM EDT [facility] [employer] Phone: Culture, Strep B Scr een, Vaginal/Rectal Culture, Strep B Screen, Vaginal/Rectal Microbiology [employer] Label Print 07/20/2022 6:56 PM EDT [employer] Phone: EKG 12 Lead EKG 12 Lead ECG Routine 07/15/2022 4:23 AM EDT [employer] Phone: Glucose [Mass/volume ] in Serum or Plasma POCT glucose Point of Care Testing Routine 4X Daily (AC & HS) until discontinued starting 07/20/2022 [employer] Phone: Comment on above: 4X Daily (AC & HS) u ntil discontinued starting 07/20/2022 End: 07-15-2022 Hepatitis C Antibody [employer] Phone: Comment on above: One Time for 1 Occur rences starting 07/15/2022 until 07/15/2022 Meningitis+Encephali tis pathogens DNA and RNA panel - Cerebral spinal fluid by SARANYA with non-probe detection [facility] Microscopic observat ion [Identifier] in Unspecified specimen by Gram stain [facility] Nonrebreather mask oxygen Nonrebreather mask oxygen Respiratory Care Routine As directed - RT (PRN) until discontinued starting 07/15/2022 [employer] Phone: Comment on above: As directed - RT (MT N) until discontinued starting 07/15/2022 Oxygen therapy [[facility] Data Set] Initiate Oxygen Therapy Protocol Respiratory Care Routine Daily until discontinued starting 07/20/2022 [employer] Work Phone: Comment on above: Daily until disconti nued starting 07/20/2022 Patient Education [facility] Lumb ar Puncture Discharge Instructions [facility] Work Phone: PROFILE I PROF ILE I Lab [employer] Label Print 07/15/2022 4:12 PM EDT [employer] Phone: End: 06-28-2024 PSG Diagnostic [facility] Routine MOLINA (obstructive sleep apnea) 1 Occurrences starting 06/29/2023 until 06/28/2024 [employer] Work Phone: Comment on above: 1 Occurrences starti ng 06/29/2023 until 06/28/2024 End: 07-15-2022 RAPID INFLUENZA A/B ANTIGENS RAPID INFLUENZA A/B ANTIGENS Microbiology STAT One Time for 1 Occurrences starting 07/15/2022 until 07/15/2022 [employer] Phone: Comment on above: One Time for 1 Occur rences starting 07/15/2022 until 07/15/2022 End: 07-20-2022 Specimen hold [employer] Work Phone: Comment on above: Once for 1 Occurrenc es starting 07/20/2022 until 07/20/2022 End: 07-20-2022 Specimen to Pathology Specimen to Pathology Lab Routine One Time for 1 Occurrences starting 07/20/2022 until 07/20/2022 [employer] Phone: Comment on above: One Time for 1 Occur rences starting 07/20/2022 until 07/20/2022 Spirometry panel Incentive linda metry Respiratory Care Routine Every 2hr while awake until discontinued starting 07/20/2022 [employer] Phone: Comment on above: Every 2hr while awak e until discontinued starting 07/20/2022 End: 07-15-2022 Troponin I.cardiac [Mass/volume] in Serum or Plasma Troponin Lab STAT One Time for 1 Occurrences starting 07/15/2022 until 07/15/2022 [employer] Phone: Comment on above: One Time for 1 Occur rences starting 07/15/2022 until 07/15/2022 Immunizations Immunization Date Immunization Notes Care Provider Radha bowen 04-21-2014 influenza virus vaccine, unspecified formulation Katerin Haynes APRN-DIRECTOR OF DIRECT MARKETING Work Phone: [employer] NEGATED: Highlighted row has not occurred!07-22-2022 tetanus toxoid, reduced diphtheria toxoid, and acellular pertussis vaccine, adsorbed Inge Galinaza DO Work Phone: [facility] Payers Date Payer Category Payer Unknown 2022 Unknown [id number] 2022 Medicaid [id number] 2022 Medicaid [employer] [id number] 2022-Present [address] [place] [address] 1.2.840.073594.1.13.424.2. 7.3.256066.315 1992 Unknown [id number] 2.16.840.1.310521.3.579.2. 647 1992 Unknown [id number] 2.16.840.1.485763.3.579.2. 593 1992 Unknown [id number] 2.16.840.1.415909.3.579.2. 593 1992 Unknown [id number] 2.16.840.1.136994.3.579.2. 593 1992 Unknown [id number] 2.16.840.1.144188.3.579.2. 593 1992 Unknown [id number] 2.16.840.1.889764.3.579.2. 593 1992 Unknown [id number] 2.16.840.1.635253.3.579.2. 593 1992 Unknown [id number] 2.16.840.1.177043.3.579.2. 593 1992 Unknown [id number] 2.16.840.1.138715.3.579.2. 593 1992 Unknown [id number] 2.16.840.1.986681.3.579.2. 593 1992 Unknown [id number] 2.16.840.1.734019.3.579.2. 593 1992 Unknown [id number] 2.16.840.1.077675.3.579.2. 593 1992 Unknown [id number] 2.16.840.1.854218.3.579.2. 593 1992 Unknown [id number] 2.16.840.1.015218.3.579.2. 593 1992 Unknown [id number] 2.16.840.1.557611.3.579.2. 593 1992 Unknown [id number] 2.16.840.1.312680.3.579.2. 593 1992 Unknown [id number] 2.16.840.1.492259.3.579.2. 593 1992 Unknown [id number] 2.16.840.1.496895.3.579.2. 593 1992 Unknown [id number] 2.16.840.1.832321.3.579.2. 593 1992 Unknown [id number] 2.16.840.1.010350.3.579.2. 593 1992 Unknown [id number] 2.16.840.1.560529.3.579.2. 593 1992 Unknown [id number] 2.16.840.1.665966.3.579.2. 593 1992 Unknown [id number] 2.16.840.1.101343.3.579.2. 593 1992 Unknown [id number] 2.16.840.1.264680.3.579.2. 593 1992 Unknown [id number] 2.16.840.1.227414.3.579.2. 593 1992 Unknown [id number] 2.16.840.1.858439.3.579.2. 593 1992 Unknown [id number] 2.16.840.1.166523.3.579.2. 593 1992 Unknown [id number] 2.16.840.1.160239.3.579.2. 593 1992 Unknown [id number] 2.16.840.1.980295.3.579.2. 593 1992 Unknown [id number] 2.16.840.1.853745.3.579.2. 593 1992 Unknown [id number] 2.16.840.1.638892.3.579.2. 593 1992 Unknown [id number] 2.16.840.1.945242.3.579.2. 593 1992 Unknown [id number] 2.16.840.1.188704.3.579.2. 593 1992 Unknown [id number] 2.16.840.1.792555.3.579.2. 593 1992 Unknown [id number] 2.16.840.1.952072.3.579.2. 593 1992 Unknown [id number] 2.16.840.1.116611.3.579.2. 593 1992 Unknown [id number] 2.16.840.1.733180.3.579.2. 593 1992 Unknown [id number] 2.16.840.1.786606.3.579.2. 593 1992 Unknown [id number] 2.16.840.1.901649.3.579.2. 593 1992 Unknown [id number] 2.16.840.1.854542.3.579.2. 593 1992 Unknown [id number] 2.16.840.1.264998.3.579.2. 593 1992 Unknown [id number] 2.16.840.1.408560.3.579.2. 1286 1992 Unknown [id number] 2.16.840.1.075857.3.579.2. 1286 1992 Unknown [id number] 2.16.840.1.931252.3.579.2. 1286 1992 Unknown [id number] 2.16.840.1.962465.3.579.2. 128 1992 Unknown [id number] 2.16.840.1.742087.3.579.2. 128 1992 Unknown [id number] 2.16.840.1.929958.3.579.2. 128 1992 Unknown [id number] 2.16.840.1.885923.3.579.2. 128 1992 Unknown [id number] 2..840.1.648036.3.579.2. 128 1992 Unknown [id number] 2..840.1.844208.3.579.2. 1285 1992 Unknown [id number] 2..840.1.253004.3.579.2. 9 1992 Unknown [id number] 2..840.1.077611.3.579.2. 1258 1992 Unknown [id number] 2..840.1.419497.3.579.2. 9 1992 Unknown [id number] 2.16.840.1.234236.3.579.2. 1258 1992 Unknown [id number] 2.16.840.1.852326.3.579.2. 1259 1992 Unknown [id number] 2.16.840.1.945068.3.579.2. 1258 1992 Unknown [id number] 2.16.840.1.748620.3.579.2. 1258 1992 Unknown [id number] 2.16.840.1.191176.3.579.2. 1259 1992 Unknown [id number] 2.16.840.1.952679.3.579.2. 125 1992 Unknown [id number] 2.16.840.1.291980.3.579.2. 1259 1992 Unknown [id number] 2.16.840.1.408039.3.579.2. 1259 1992 Unknown [id number] 2.16.840.1.453499.3.579.2. 1259 1992 Unknown [id number] 2.16.840.1.239621.3.579.2. 1259 1992 Unknown [id number] 2.16.840.1.567540.3.579.2. 175 1992 Unknown [id number] 2.16.840.1.372565.3.579.2. 175 1992 Unknown [id number] 2.16.840.1.628509.3.579.2. 175 1992 Unknown [id number] 2.16.840.1.156551.3.579.2. 175 1959 Medicaid [id number] 1.2.840.943853.1.13.239.2. 7.3.453927.315 1959 Private Health Insurance [id number] 1.2.840.028413.1.13.239.2. 7.3.771660.315 1959 Self-pay 1959 Unknown [id number] 1959 Worker's Compensation [id number] 2.840.1.712464.19 Medicaid [employer] [id number] Private Health Insurance [id number] .840.1.323873.19 Private Health Insurance [facility] [id number] Unknown [id number] 06.08.830.1.114304.19 Unknown [id number] 2.840.1.896774.3.579.2. 593 Unknown [id number] 2.16.840.1.631408.3.579.2. 531 Unknown [id number] 2.16.840.1.799750.3.579.2. 531 Social History Date Type Detail Facility Unknown if ever smoked [employer] Other Start: 06-03-2020 End: 05-03-2023 Sex Assigned At [facility] Other Start: 06-22-2022 End: 06-29-2023 Tobacco smoking status WAIS Ex-smoker [employer] Start: 05-25-2020 End: 12-22-2022 History of tobacco use Current smoker [employer] Phone: End: 11-20-2017 History of tobacco use Cigarette Smoker [employer] Phone: Start: 06-22-2022 End: 06-29-2023 Tobacco use and exposure Smokeless tobacco non-user [employer] Phone: Start: 06-29-2022 End: 06-29-2023 Alcohol intake Ex-drinker (finding) [employer] Phone: Start: 06-22-2022 Tobacco Comment Quit in 201806/22/2022 [employer] Phone: Start: 11-20-2021 [employer] Phone: Start: 1992 Sex Assigned At Female [facility] Start: 07-10-2022 End: 07-20-2022 Exposure to SARS-CoV-2 (event) Not sure [employer] Phone: Start: 06-03-2020 End: 11-16-2022 Cigarettes smoked current (pack per day) - Reported 0.5 [employer] Adolescent depressio n screening [facility] Start: 11-30-2021 Education 17 [facility] Start: 11-16-2022 Tobacco Comment quit in July [facility] Start: 05-16-2022 Gender identity Identifies as female gender (finding) [facility] Start: 05-25-2022 Sexual orientation Heterosexual (finding) [facility] Medical Equipment Procedure Code Equipment Code Equipment Origin al Text Equipment Identifier Dates BD ULTRA-FINE PE N NEEDLES 29G X 12.7MM [facility] [id number] Start: 04-03-2022 ONETOUCH ULTRA strip [id number] Star t: 06-11-2022 DROPLET PEN NEED LES 29G X 12MM MISC [id number] Start: 06-30-2022 Clinical Notes 01-28-2020 to 07-02-2023 Telephone Encounter - Christine Valladares - 07/02/2023 9:14 AM EDTTelephone Encounter - Christine Valladares - 07/02/2023 9:14 AM EDTSVANESA Krause - 06/29/2023 11:00 AM ESTPatient Instructions Note Date & Type Note Facility 07-02-2023 Miscellaneous Notes Formattin g of this note is different from the original. 06/28 order received Scheduled [facility]G at [facility] on 10/23/23 Mychart confirmation [place] [facility] PS[facility] order & 6 [place] notes in Epic With TCO2 monitoring. Please obtain baseline in supine position. documented in this encounter [facility] 07-02-2023 Telephone encount er Note 06/28 order received Scheduled [facility] at [facility] on 10/[facility]/23 Mychart confirmation [place] [employer] PSG order & 3/6 [place] notes in Epic With TCO2 monitoring. Please obtain baseline in supine position. [facility] 06-29-2023 History of Presen t illness [...] you wake up? 6-8 AM Number of kabwlk-ji-ufc-night awakenings per night? 3-4 Cause of awakenings [...] Asthma 2016 Back pain Bipolar 1 disorder ([facility]) Cholecystitis gallbladder removed-2009 Chronic headache 2010 [...] to stop the activity if sleepiness occurs (sample puller at the next safe opportunity if [...] and during sleep). CC: MD Lindsey CAMEJO [facility] Office: [phone] 11:18 AM on 06/29/2023 This note is dictated with the use of M*[employer].Please note that this dictation was completed with computer voice recognition software. Quite often unanticipated grammatical, syntax, homophones, and other interpretive errors are inadvertently transcribed by the computer software. Please disregard these errors. Please excuse any errors that have escaped final proofreading. VANESA Mendez 06/29/23 1125 documented in this encounter [facility] [place] [employer] [facility] 06-29-2023 Instructions VANESA Mendez - 06/29/2023 11:00 AM EST If you re looking for general health and wellness resources, please visit [email or web address]. documented in this encounter [facility] 06-29-2023 Evaluation note Diagnosis MOLINA (obstructive sleep apnea)- Primary Obstructive sleep apnea (adult) (pediatric) Morning headache Memory loss Fatigue, unspecified type Snoring Other dyspnea and respiratory abnormality documented in this encounter [facility]2024 Miscellaneous Notes* Telephone Encounter - Ernestina Simpson - 05/29/2023 10:23 AM EST Pt called to schedule a sleep study or appointment with pulaquiles Dawn advised we have nothing as of now and either order is in her chart to schedule with gave her the number to sleep medicine in [place] [facility] Note* Telephone Encounter - Ernestina Simpson - 05/29/2023 10:23 AM EST Pt called to schedule a sleep study or appointment with collin Dawn advised we have nothing as of now and either order is in her chart to schedule with gave her the number to sleep medicine in [place] [facility]01-11-2024 History of Present illness Narrative* VANESA Frank - 05/03/2023 1:15 PM EST Images from the original note were not included. [address] [facility] [address] SUBJECTIVE: Patient ID: Yani Stevens is a [...] VANESA Frank 05/03/23 1330 documented in this [facility] Hospital[facility] [id number] Evaluation note* Encounter Date Diagnosis Assessment Notes [...] not specified, unspecified location (ICD-10 - J01.90) [employer] 04-01-2023 History of Present illness Narrative* [...] patient Attending Physician: Dr. Fish Estrada MD [employer] [facility] [facility] 07/22/2022, 12:40 AM Attending Physician Statement [...] patient Attending Physician: Dr. Betina Bush, DO [facility] [employer] [facility] 07/21/2022, 3:02 AM Attending Physician Statement [...] MD 07/21/2022 10:00 AM [facility] [employer] Phone: 1(901) 776-135203-30-2023 Evaluation note* Diagnosis RLTCS w/ IUD 07/20/22 [...] Chronic hypertension affecting documented in this encounter [facility] [employer] Phone: 1(439) 850-852103-28-2023 Evaluation note* Encounter Date Diagnosis Assessment Notes [...] other viral communicable diseases (ICD-10 - Z20.828) [facility] 11-29-2022 Evaluation note* Encounter Date Diagnosis [...] off of work. We will apply for [facility] approval for therapy. [employer] Other 06-21-2021 NoteEducation Materials Obstetrics and Gynecology [...] Follow these instructions at home: ? Take omqi-mwo-hcawjxu and prescription medicines only as told by [...] menstrual period is much (more content not included)...[facility] 01-28-2020 NoteOphthalmology Basics of Medication Management [...] caregiver questions about your prescriptions and any lpsa-xgq-ofypjnw medications, vitamins, herbal or dietary supplements that [...] your caregiver or pharm (more content not included)...[facility] Chief complaint+Reason for visit Narrative* Chief Complaint Congestion, fever Reason for Visit Contact with and (grimm spected) exposure to covid-19 [facility] Work Phone: Evaluation note* Diagnosis 35 weeks [...] condition or complication documented in this encounter [facility] Work Phone: evaluation noteNo assessment information available [facility] Work Phone: Evaluation note* Diagnosis Acute non-recurrent maxillary sinusitis- Primary [facility] Diagnosis Low back pain, unspecified back pain laterality, unspecified chronicity, unspecified whether sciatica present- Primary [facility]* Diagnosis Onset Date Resolution Status Contact with and (suspected) exposure to covid-19 noneactive [facility] Work Phone: History general Narrative - Reported* Type Description Date Medical History Depression Medical History Bipolar disorder Medical History Hypertension Medical History Hypothyroidism Surgical History cholecystectomy Surgical History wisdom teeth extract Surgical History lipoma removed Surgical History left knee scope x 2 Surgical History hemorrhoidectomy Hospitalization History see above surgical histo ry [facility] Other Hospital Discharge instructions* Attachments The following attachments cannot be sent through Care Everywhere. * Section: Post-op (Norwegian) * Preeclampsia: : General Info (Norwegian) * Depression: (Norwegian) [facility] Work Phone: Instructions* Attachments The following attachments cannot be sent through Care Everywhere. * Sinusitis in adults (Norwegian) documented in this encounterProFire[facility] CenterSouthwest Nanotechnologies SystemInstructionsNot on file documented in this encounterProFirelands Regional Medical CenterSouthwest Nanotechnologies SystemInstructionsNot on file documented in this encounterProFirelands Regional Medical CenterSouthwest Nanotechnologies SystemInstructionsNot on file documented in this encounterProFirelands Regional Medical CenterSouthwest Nanotechnologies SystemInstructionsNot on file documented in this encounterMer[facility] Hospital[facility] System Summary Purpose Family History No Family [...] sleep apnea) Procedures PSG Diagnostic Lindsey Mcmahon, GLASS BLOCK BENDER-DIRECTOR OF DIRECT MARKETING [address] [facility], [address] [address] Referral ID Status Reason Start Date Expiration Date V isits Requested Visits Authorized [id number] Pending Review 06/29/2023 06/28/2024 1 1 Additional Source Comments INFORMATION SOURCE (unrecogn ized section and content) DATE CREATED AUTHOR 02/27/2018 [facility] DATE CREATED AUTHOR AUTHOR'S ORGANIZ ATION 09/15/2020 [facility] DATE CREATED AUTHOR AUTHOR'S ORGANIZ ATION 10/17/2020 [facility] DATE CREATED AUTHOR AUTHOR'S ORGANIZ ATION 08/25/2022 [facility] DATE CREATED AUTHOR AUTHOR'S ORGANIZ ATION 01/01/2023 [facility] DATE CREATED AUTHOR AUTHOR'S ORGANIZ ATION 06/30/2023 [facility] DATE CREATED AUTHOR AUTHOR'S ORGANIZ ATION 12/31/2023 [facility] DATE CREATED AUTHOR AUTHOR'S ORGANIZ ATION 01/05/2024 [facility] DATE CREATED AUTHOR AUTHOR'S ORGANIZ ATION 01/05/2024 [facility] REASON FOR VISIT (unrecogniz ed section and content) Specialty Diagnoses / Procedures Referred By Ismael landis Referred To Contact Diagnoses 36 weeks gestation of Hitesh Holloway, DO [address] [place] [address] [facility] [address] [place] [address] Referral ID Status Reason Start Date Expiration Date Visits Re quested Visits Authorized [id number] 1 1 Reason Comments Nasal Congestion Dizziness Reason Onset Date Comments Sleep Lab 05/29/2023 Reason Comments Med Refill Reason Comments New Patient Sleep ConsultNo prio r sleep studyNot on PAP Specialty Diagnoses / Procedures Referred By Ismael landis Referred To Contact Pulmonary Medicine Diagnoses Morning headache Memory loss Razia Muller, GLASS BLOCK BENDER-DIRECTOR OF DIRECT MARKETING [address] [place] [address] sp Pulm Sleep Med [facility] [facility] [place] [address] Referral ID Status Reason Start Date Expiration Date Visits Requested Visits Authorized [id number] Pending Review Specialty Services Required 06/12/2023 06/11/2024 [...] (Given - Provider: Stephany Paige APRN - CULINARY INTERN) citalopram (CELEXA) tablet 20 mg 20 mg, Oral, DAILY, First dose (after last modification) on Sun07/21/22 at 0900, Until Discontinued 08 (Given - Provider: Lakesha Loera RN) 08 (Given - Provider: Lakesha oLera RN) citric acid-sodium citrate (BICITRA) solution 30 [...] (NoRateChange - Provider: Stephany Paige APRN - CULINARY INTERN)1829 (Paused - Provider: Agata Pollard, VIKTORIA - Comment: Switch to gravity)1830 (New Bag - Provider: Agata Pollard, RN)1927 (New Bag - Provider: Aagta Pollard RN) PRN Medication Order 07/20/2022 07/21/2022 [...] December 17, 2023 End: December 17, 2023 Geriatric Social Worker Relationship Specialty Start Date End Date Chas Balderas MD [address] [place] [address] PCP - General Family Medicine 06/29/23 Geriatric Social Worker Relationship Specialty Start Date End Date Katerin Haynes APRN-DIRECTOR OF DIRECT MARKETING [address] [place] [address] PCP - General Family Medicine 11/23/22 Team Status: Active Member Role Status Armond Villalobos MD Primary Care Provider Active Team Status: Inactive Member Role Status Dates Aline Villalobos MD Primary Care Provider Active Razia Muller , GLASS BLOCK BENDER-TUBE INSPECTOR-C Attending Provider Active Goals (unrecognized section and [...] BE BASED ON THE PRIMARY CLINICAL RECORDS. [employer] provides no warranty or guarantee of the accuracy or completeness of information in this document.
[2024-01-10 08:04] VITALS: BP 134/67; PULSE 83
== END 2024-01-10 08:30 | disposition home or self-care (01) ==
LOC: FBCO 07:01 → FBC 07:57
PROVIDERS: PCP Family Medicine; Visit Provider Obstetrics & Gynecology
DX: O24.419 Gestational diabetes mellitus in pregnancy, unspecified control (principal); Z3A.33 33 weeks gestation of pregnancy
CPT/HCPCS: 59025

== ENCOUNTER 2024-01-14 07:02 | Outpatient (OUT) | payer BC, MEDICAID, SELFPAY ==
--- OUTSIDE RECORDS SUMMARY | 2024-01-14 07:06 | XMS_ITS | CCD ---
Author Organization [facility] Care Team Providers Care Launch Engineer Name Role Phone PHYSICIAN, DEFAULT Unavailable Unavailable PHYSICIAN, DEFAULT Unavailable Unavailable Naga Wells Unavailable None, . Primary Care Provider UnavailAlesha Garcia Unavailable LILIA RUIZ Consulting Unavailable LILIA RUIZ Attending Unavailable LILIA RUIZ Admitting Unavailable SHERRIE, DR CHAS Norman Primary Care Unavailable GILDARDO [...] NADERER, DR CHAS Norman Primary Care Unavailable COLUMBIA, DR ALINE Henriquez Consulting Unavailable NICHOLAS, DR [...] Unavailable MD Aline Villalobos Primary Care Provider [phone] TONJA Muller Attending Provider Aline Villalobos Primary Care Unavailable Razia Muller Admitting Unavailable Razia Muller Attending Unavailable Aline Villalobos Primary Care Unavailable Razia Muller Admitting Unavailable Razia Muller Attending Unavailable Jovita Murcia Unavailable Schlachter ENTERPRISE SALES PERSON-DIRECTOR OF COUNTERINTELLIGENCE, Katerin Primary Care Provide r Schmachter ENTERPRISE SALES PERSON-DIRECTOR OF COUNTERINTELLIGENCE, Katerin Primary Care Provide r Chas Balderas MD Primary Care Provider [phone] LINDSEY MCMAHON Attending Unavailable MULLER, RAZIA Referring [...] Attending Unavailable NICHOLAS, NOAH Attending Unavailable NADERER, HCAS Attending Unavailable NIHCOLAS, NOAH Attending Unavailable NICHOLAS, NOAH Attending Unavailable NICHOLAS, NOAH Attending Unavailable MARIKA, CHARMAINE Attending Unavailable NICHOLAS, NOAH Attending Unavailable NICHOLAS, NOAH Attending Unavailable NICHOLAS, NOAH Attending Unavailable PERNI, MATEO C Referring Unavailable NADERER, CHAS WALKER Primary Care Unavailabl e PERNI, MATEO C Referring Unavailable NADERER, [facility] Primary Care Unavailabl e PERNI, MATEO C Referring Unavailable NADERER, [facility] Primary Care UnavailCLAUDIA Walker Admitting Unavailable CLAUDIA VILLAR Attending Unavailable NADERER, [facility] Primary Care Unavailabl e Allergies Allergy Classification Reported Allergen(s) Allergy Type Date of Onset Reaction(s) Facility (20 sources) Amoxicillin; Translations: [Amoxicillin] Drug Allergy 11-08-18 96 Anaphylaxis, shortness of breath [facility] (18 sources) Morphine; Translations: [MORPHINE] Drug Allergy 09-18-19 18 hives, Rash [facility] Other (16 sources) Codeine; Translations: [CODEINE] [facility] (13 sources) Penicillins; Translations: [PENICILLINS] Propensity to adverse reactions to drug 02-22-20 16 Anaphylaxis, Shortness Of Breath [facility] Work Phone: (1 source) Codeine Drug Allergy 07-30-19 22 [facility] (1 source) Morphine Drug Allergy [facility] (1 source) Codeine Drug Allergy 12-23-19 23 [facility] (1 source) Morphine Drug Allergy 05-25-19 21 [facility] (1 source) Pseudoephedrine Drug Allergy 02-22-20 22 Unknown [facility] Other (1 source) Allergies Reconciled Propensity to adverse reactions 02-28-20 Unknown [facility] Other (1 source) Substance with penicillin structure and antibacterial mechanism of action (substance) Drug allergy 02-28-20 Unknown [facility] Other (1 source) Morphine Sulfate (Concentrate) *ANALGESICS - OPIOI Propensity to adverse reactions 02-28-20 Unknown [facility] Other (9 sources) Doxycycline; Translations: [DOXYCYCLINE] Drug Allergy 02-08-20 23 [facility] (1 source) 12 Hour Decongestant Allergy to substance 12-17-19 Unknown Reaction [facility] Medications Current Medications Medication Drug [...] as needed Orally every 6 hrs Active [id number] 200 actuat albuterol 0.09 mg/actuat metered dose [...] 06-20-2022 PROFE 391.3 (180 Fe) MG CAPS [id number] Acid (1 source) Start: 12-17-2023 take 1 tablet by mouth once daily [id number]-Bhxer Acid Active 1 TAB PO Daily December [...] Orally once a d ay Active levonorgestrel 0.956335 mg/hr intrauterine system (3 sources) Progestin, Progestin-containing [...] tablet 0 11/16/2017 Active polyethylene glycol 3350 17771 mg powder for oral solution (3 sources) [...] Onset: 05-26-2022 Episodic Other aftercare (1 source) snf (current) use of insulin; Translations: [SKILLED NURSING [...] Ampon 12-31 Chlamydia Probe Negative Normal NEG [facility] Comment on above: Result Comment: CHLA [...] PROSAC, HOCYS, GLYHGB, TSH, LUPPRO, FT4 #### [facility] [address] [place] [id number] Medical Claims Specialist: Gideon Bullock MD #### AAFPM #### [facility] [address] [place] [address] [phone] Medical Claims Specialist: Gideon Bullock MD [address] [address] Medical Claims Specialist: Fantasma Wood MD #### AF5MUT, AMTHFR, APTMUT #### [facility] [address] [place], [place] [phone] Medical Claims Specialist: Fantasma Wood MD Gonorrhea Probe Negative Normal NEG [facility] Comment on above: Result Comment: NEIS [...] LUPPRO, FT4 #### [place] [address] Medical Claims Specialist: Gideon Bullock MD #### AAFPM #### [place] [address] Medical Claims Specialist: Gideon Bullock MD [address] [phone] Medical Claims Specialist: Fantasma Wood MD #### AF5MUT, AMTHFR, APTMUT #### [facility] [address] [place] [address] Medical Claims Specialist: Fantasma Wood MD CBC with Diffon 12-31-2023 Abs. Basophil 0.03 k/uL Normal 0.00-0.20 [facility] Comment on above: Performed By: #### U VIVIEN URTPRT #### [facility] [employer] [address] [place] [address] Medical Claims Specialist: Gideon Bullock MD Abs.Imm.Granulocyte 0.04 k/uL Normal 0.00-0.30 [facility] Comment on above: Performed By: #### U VIVIEN URTPRT #### [address] [address] Medical Claims Specialist: Gideon Bullock MD Abs.Neutrophil (Seg) 5.25 k/uL Normal 1.50-8.10 [facility] Comment on above: Performed By: #### U AMIC, URTPRT #### [address] [address] Medical Claims Specialist: Gideon Bullock MD Basophils/100 WBC (Bld) 0 % Normal 0-2 [facility] Comment on above: Performed By: #### U AMIC, URTPRT #### [address] [address] Medical Claims Specialist: Gideon Bullock MD Eosinophils (Bld) [#/Vol] 0.18 10*3/uL Normal 0.00-0.44 [facility] Comment on above: Performed By: #### U AMIC, URTPRT #### [address] [address] Medical Claims Specialist: Gideon Bullock MD Eosinophils/100 WBC (Bld) 2 % Normal 1-4 [facility] Comment on above: Performed By: #### U AMIC, URTPRT #### [address] [address] Medical Claims Specialist: Gideon Bullokc MD Erythrocyte distribution width (RBC) [Ratio] 13.1 % Normal 11.8-14.4 [facility] Comment on above: Performed By: #### U AMIC, URTPRT #### [address] [address] Medical Claims Specialist: Gideon Bullock MD Hematocrit (Bld) [Volume fraction] 35.1 % Low 36.3-47.1 [facility] Comment on above: Performed By: #### U AMIC, URTPRT #### [address] [address] Medical Claims Specialist: Gideon Bullock MD Hemoglobin (Bld) [Mass/Vol] 11.9 g/dL Normal 11.9-15.1 [facility] Comment on above: Performed By: #### U AMIC, URTPRT #### [address] [address] Medical Claims Specialist: Gideon Bullock MD Immature granulocytes/100 WBC (Bld) 1 % High 0 [facility] Comment on above: Performed By: #### U AMIC, URTPRT #### [address] [address] Medical Claims Specialist: Gideon Bullock MD Lymphocytes (Bld) [#/Vol] 1.81 10*3/uL Normal 1.10-3.70 [facility] Comment on above: Performed By: #### U AMIC, URTPRT #### [address] [address] Medical Claims Specialist: Gideon Bullock MD Lymphocytes/100 WBC (Bld) 23 % Low 24-43 [facility] Comment on above: Performed By: #### U AMIC, URTPRT #### [address] [address] Medical Claims Specialist: Gideon Bullock MD MCH (RBC) [Entitic mass] 28.9 pg Normal 25.2-33.5 [facility] Comment on above: Performed By: #### U AMIC, URTPRT #### [address] [address] Medical Claims Specialist: Gideon Bullock MD MCHC (RBC) [Mass/Vol] 33.9 g/dL Normal 28.4-34.8 [facility] Comment on above: Performed By: #### U AMIC, URTPRT #### [address] [address] Medical Claims Specialist: Gideon Bullock MD MCV (RBC) [Entitic vol] 85.2 fL Normal 82.6-102.9 [facility] Comment on above: Performed By: #### U AMIC, URTPRT #### [address] [address] Medical Claims Specialist: Gideon Bullock MD Monocytes (Bld) [#/Vol] 0.62 10*3/uL Normal 0.10-1.20 [facility] Comment on above: Performed By: #### U AMIC, URTPRT #### [address] [address] Medical Claims Specialist: Gideon Bullock MD Monocytes/100 WBC (Bld) 8 % Normal 3-12 [facility] Comment on above: Performed By: #### U AMIC, URTPRT #### [address] [address] Medical Claims Specialist: Gideon Bullock MD Neutrophil (Seg) 66 % High 36-65 [facility] Comment on above: Performed By: #### U AMIC, URTPRT #### [address] [address] Medical Claims Specialist: Gideon Bullock MD NRBC Automated 0.0 per 100 WBC Normal 0.0 [facility] Comment on above: Performed By: #### U AMIC, URTPRT #### [address] [address] Medical Claims Specialist: Gideon Bullock MD Platelet mean volume (Bld) [Entitic vol] 10.9 fL Normal 8.1-13.5 [facility] Comment on above: Performed By: #### U AMIC, URTPRT #### [facility] [employer] [address] [place] [address] Medical Claims Specialist: Gideon Bullock MD Platelets (Bld) [#/Vol] 175 10*3/uL Normal 138-453 [facility] Comment on above: Performed By: #### U AMIC, URTPRT #### [facility] [address] [place] [address] Medical Claims Specialist: Gideon Bullock MD RBC (Bld) [#/Vol] 4.12 10*6/uL Normal 3.95-5.11 [facility] Comment on above: Performed By: #### U AMIC, URTPRT #### [facility] [address] [place] [address] Medical Claims Specialist: Gideon Bullock MD WBC (Bld) [#/Vol] 7.9 10*3/uL Normal 3.5-11.3 [facility] Comment on above: Performed By: #### U AMIC, URTPRT #### [facility] [employer] [address] [place] [address] Medical Claims Specialist: Gideon Bullock MD Comp Metabolic Profon 2023 Albumin [Mass/Vol] 3.7 g/dL Normal 3.5-5.2 [facility] Comment on above: Performed By: #### U AMIC, URTPRT #### [facility] [employer] [address] [place] [address] Medical Claims Specialist: Gideon Bullock MD Albumin/Glob Ratio 1.0 Normal 1.0-2.5 [facility] Comment on above: Performed By: #### U AMIC, URTPRT #### [facility] [employer] [facility] [place] [address] Medical Claims Specialist: Gideon Bullock MD Alkaline Phos 105 U/L High 35-104 [facility] Comment on above: Performed By: #### U AMIC, URTPRT #### [facility] [employer] [address] [place] [address] Medical Claims Specialist: Gideon Bullock MD ALT [Catalytic activity/Vol] 18 U/L Normal 10-35 [facility] Comment on above: Performed By: #### U AMIC, URTPRT #### [address] [address] Medical Claims Specialist: Gideon Bullock MD Anion gap [Moles/Vol] 10 mmol/L Normal 9-16 [facility] Comment on above: Performed By: #### U AMIC, URTPRT #### [address] [address] Medical Claims Specialist: Gideon Bullock MD AST [Catalytic activity/Vol] 16 U/L Normal 10-35 [facility] Comment on above: Performed By: #### U AMIC, URTPRT #### [address] [address] Medical Claims Specialist: Gideon Bullock MD Bilirubin [Mass/Vol] 0.2 mg/dL Normal 0.00-1.20 [facility] Comment on above: Performed By: #### U AMIC, URTPRT #### [address] [address] Medical Claims Specialist: Gideon Bullock MD Calcium [Mass/Vol] 9.0 mg/dL Normal 8.6-10.4 [facility] Comment on above: Performed By: #### U AMIC, URTPRT #### [address] [address] Medical Claims Specialist: Gideon Bullock MD Chloride [Moles/Vol] 106 mmol/L Normal 98-107 [facility] Comment on above: Performed By: #### U AMIC, URTPRT #### [facility] [employer] [address] [place] [address] Medical Claims Specialist: Gideon Bullock MD CO2 [Moles/Vol] 21 mmol/L Normal 20-31 [facility] Comment on above: Performed By: #### U AMIC, URTPRT #### [facility] [employer] [address] [place] [address] Medical Claims Specialist: Gideon Bullock MD Creatinine [Mass/Vol] 0.4 mg/dL Low 0.50-0.90 [facility] Comment on above: Performed By: #### U AMIC, URTPRT #### [address] [address] Medical Claims Specialist: Gideon Bullock MD GFR/1.73 sq M.predicted among non-blacks MDRD (S/P/Bld) [Vol rate/Area] mL/min/{1.73_m2} Normal >60 [facility] Comment on above: Result Comment: These [...] Performed By: #### U AMIC URTPRT #### [facility] [employer] [address] [place] [address] Medical Claims Specialist: Gideon Bullock MD Glucose [Mass/Vol] 74 mg/dL Normal 74-99 [facility] Comment on above: Performed By: #### U AMIC, URTPRT #### [facility] [employer] [address] [place] [address] Medical Claims Specialist: Gideon Bullock MD Potassium [Moles/Vol] 3.9 mmol/L Normal 3.7-5.3 [facility] Comment on above: Performed By: #### U AMIC, URTPRT #### [facility] [employer] [address] [place] [address] Medical Claims Specialist: Gideon Bullock MD Protein [Mass/Vol] 6.9 g/dL Normal 6.6-8.7 [facility] Comment on above: Performed By: #### U AMIC, URTPRT #### [address] [address] Medical Claims Specialist: Gideon Bullock MD Sodium [Moles/Vol] 137 mmol/L Normal 136-145 [facility] Comment on above: Performed By: #### U AMIC, URTPRT #### [address] [address] Medical Claims Specialist: Gideon Bullock MD Urea nitrogen [Mass/Vol] 9 mg/dL Normal 6-20 [facility] Comment on above: Performed By: #### U AMIC, URTPRT #### [address] [address] Medical Claims Specialist: Gideon Bullock MD Protein,Tot,Barry Uron 2023 Creatinine [Mass/Vol] 123.0 mg/dL Normal 28.0-217.0 [facility] Comment on above: Performed By: #### U AMIC, URTPRT #### [address] [address] Medical Claims Specialist: Gideon Bullock MD Tot Prot. Conc. 14 mg/dL Normal [facility] Comment on above: Result Comment: No n ormal range established. Performed By: #### U AMIC, URTPRT #### [address] [address] Medical Claims Specialist: Gideon Bullock MD TP/Cre Ratio 0.12 Normal [facility] Comment on above: Performed By: #### U AMIC, URTPRT #### [address] [address] Medical Claims Specialist: Gideon Bullock MD Urinalysis w/ Microon 2023 Bacteria None Normal NONE [facility] Comment on above: Performed By: #### U AMIC, URTPRT #### [address] [address] Medical Claims Specialist: Gideon Bullock MD Bilirubin, SemiQt,Ur Negative Normal NEG [facility] Comment on above: Performed By: #### U AMIC, URTPRT #### [address] [address] Medical Claims Specialist: Gideon Bullock MD Blood, Urine MODERATE Abnormal NEG [facility] Comment on above: Performed By: #### U AMIC, URTPRT #### [address] [address] Medical Claims Specialist: Gideon Bullock MD Casts 0 TO 2 HYALINE Normal 0-8 [facility] Comment on above: Result Comment: Refe rence range defined for non-centrifuged specimen. Performed By: #### U AMIC, URTPRT #### [address] [address] Medical Claims Specialist: Gideon Bullock MD Clarity (U) Clear Normal CLEAR [facility] Comment on above: Performed By: #### U AMIC, URTPRT #### [address] [address] Medical Claims Specialist: Gideon Bullock MD Color (U) Yellow Normal YEL [facility] Comment on above: Performed By: #### U AMIC, URTPRT #### [address] [address] Medical Claims Specialist: Gideon Bullock MD Epithelial cells LM Ql (Urine sed) 5 TO 10 Normal 0-5 [facility] Comment on above: Performed By: #### U AMIC, URTPRT #### [address] [address] Medical Claims Specialist: Gideon Bullock MD Glucose Ql (U) Negative Normal NEG [facility] Comment on above: Performed By: #### U AMIC, URTPRT #### [address] [address] Medical Claims Specialist: Gideon Bullock MD Ketones Ql (U) Negative Normal NEG [facility] Comment on above: Performed By: #### U AMIC, URTPRT #### [address] [address] Medical Claims Specialist: Gideon Bullock MD Leukocyte esterase Test strip Ql (U) TRACE Abnormal NEG [facility] Comment on above: Performed By: #### U AMIC, URTPRT #### [address] [address] Medical Claims Specialist: Gideon Bullock MD Nitrite,Ur Negative Normal NEG [facility] Comment on above: Performed By: #### U AMIC, URTPRT #### [address] [address] Medical Claims Specialist: Gideon Bullock MD PH,Ur 6.0 Normal 5.0-8.0 [facility] Comment on above: Performed By: #### U AMIC, URTPRT #### [address] [address] Medical Claims Specialist: Gideon Bullock MD Protein Ql (U) Negative Normal NEG [facility] Comment on above: Performed By: #### U AMIC, URTPRT #### [facility] [employer] [address] [place] [address] Medical Claims Specialist: Gideon Bullock MD Spec. [place],Ur 1.021 Normal 1.005-1.030 [facility] Comment on above: Performed By: #### U AMIC, URTPRT #### [address] [address] Medical Claims Specialist: Gideon Bullock MD Urine RBC's 20 TO 50 Normal 0-4 [facility] Comment on above: Result Comment: Refe rence range defined for non-centrifuged specimen. Performed By: #### U AMIC, URTPRT #### [address] [address] Medical Claims Specialist: Gideon Bullock MD Urine WBC's 0 TO 2 Normal 0-5 [facility] Comment on above: Performed By: #### U AMIC, URTPRT #### [facility] [employer] [address] [place] [address] Medical Claims Specialist: Gideon Bullock MD Urobilinogen,Ur Normal Normal 0.0-1.0 [facility] Comment on above: Performed By: #### U AMIC, URTPRT #### [address] [address] Medical Claims Specialist: Gideon Bullock MD Vaginitis DNA Probeon 2023 Litzy Negative Normal NEG [facility] Comment on above: Result Comment: for Litzy sp. Method of testing is a DNA probe intended for detection and identification of Litzy species, Gardnerella vaginalis, and Trichomonas vaginalis nucleic acid in vaginal fluid specimens from patients with symptoms of vaginitis/vaginosis. Performed By: #### U AMIC, URTPRT #### [facility] [employer] [address] [place] [address] Medical Claims Specialist: Gideon Bullock MD Gardnerella Positive Abnormal NEG [facility] Comment on above: Result Comment: for Gardnerella vaginalis Performed By: #### U AMIC, URTPRT #### [facility] [employer] [address] [place] [address] Medical Claims Specialist: Gideon Bullock MD Trichomonas Negative Normal NEG [facility] Comment on above: Result Comment: for Trichomonas Vaginalis Performed By: #### U AMIC, URTPRT #### [facility] [employer] [address] [place] [address] Medical Claims Specialist: Gideon Bullock MD Source .VAGINAL SWAB Normal [facility] Comment on above: Performed By: #### U AMIC, URTPRT #### [address] [address] Medical Claims Specialist: Gideon Bullock MD Thyroid Stim. Horm.on 2023 Thyroid Stim. Horm. 1.48 uIU/mL Normal 0.27-4.20 [facility] Comment on above: Performed By: #### U AMIC, URTPRT #### [address] [address] Medical Claims Specialist: Gideon Bullock MD Thyroxine, Freeon 12-06-2023 Thyroxine, Free 0.9 ng/dL Low 0.92-1.68 [facility] Comment on above: Performed By: #### U AMIC, URTPRT #### [address] [address] Medical Claims Specialist: Gideon Bullock MD Thyroid Stim. Horm.on 2023 Thyroid Stim. Horm. 1.66 uIU/mL Normal 0.27-4.20 [facility] Comment on above: Performed By: #### P ROCAC, AT3A, PROSAC, HOCYS, GLYHGB, TSH, LUPPRO, FT4 #### [address] [address] Medical Claims Specialist: Gideon Bullock MD #### AAFPM #### [address] [address] Medical Claims Specialist: Gideon Bullock MD [facility] [address] [place] [address] Medical Claims Specialist: Fantasma Wood MD #### AF5MUT, AMTHFR, APTMUT #### [facility] [address] [place] [address] Medical Claims Specialist: Fantasma Wood MD Thyroxine, Freeon 11-08-2023 Thyroxine, Free 0.9 ng/dL Low 0.92-1.68 [facility] Comment on above: Performed By: #### P ROCAC, AT3A, PROSAC, HOCYS, GLYHGB, TSH, LUPPRO, FT4 #### [facility] [address] [place] [address] Medical Claims Specialist: Gideon Bullock MD #### AAFPM #### [facility] [address] [place] [address] Medical Claims Specialist: Gideon [facility]ock [facility] [address] [place], [place] [phone] Medical Claims Specialist: Fantasma Wood MD #### AF5MUT, AMTHFR, APTMUT #### [facility] [address] [place], [place] [id number] Medical Claims Specialist: Fantasma Wood MD PT Mutation [id number] 10-13-19 24 PT [id number] VARIANT Negative Normal [facility] Comment on above: Result Comment: (NOT E) Indication for testing: Assess genetic risk for thrombosis. NEGATIVE: The Factor II, prothrombin I86293T mutation, was not detected. Other causes of [...] Dsouza, Ph.D. 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 PATHOGENIC VARIANT TESTED: F2 c.*97G>A (X57136J). CLINICAL SENSITIVITY FOR VENOUS THROMBOSIS: Approximately 10 percent. METHODOLOGY: Polymerase chain reaction and fluorescence monitoring. ANALYTICAL SENSITIVITY AND SPECIFICITY: 99 percent. LIMITATIONS: Diagnostic errors can occur due to rare sequence variations. F2 gene variants, other than c.*97G>A (F03987Z), will not be detected. This test was developed and its performance characteristics determined by [facility]. It has not been cleared or approved by the [place] Food and Drug Administration. This test was performed in a CLIA certified laboratory and is intended for clinical purposes. Counseling and informed consent are recommended for genetic testing. Consent forms are available online. Performed By: [facility] [address] [place] [id number] Resume Writer: Andrew Duran MD, PhD [place] Number: [id number] Performed By: #### U AMIC, URTPRT #### [facility] [address] [place] [address] [phone] Medical Claims Specialist: Gideon Bullock MD PT PCR SPECIMEN Whole Blood Normal [facility] Comment on above: Performed By: #### U AMIC, URTPRT #### [facility] [address] [place] [phone] Medical Claims Specialist: Gideon Bullock MD Factor V Mutationon 10-12-19 24 F 5 SPECIMEN Whole Blood Normal [facility] Comment on above: Performed By: #### U AMIC, URTPRT #### [facility] [place], [place] [phone] Medical Claims Specialist: Gideon Bullock MD FACTOR 5 MUTATION Negative Normal [facility] Comment on above: Result Comment: (NOT E) Indication for testing: Assess genetic risk for thrombosis. NEGATIVE: The factor V Leiden variant, c.1601G>A; p.[id number], was not detected. This does not exclude [...] function in the F5 gene variant c.1601G>A (p.[id number]). Legacy nomenclature: [id number] (1691G>A) CLINICAL SENSITIVITY: 20-50 percent of individuals with an isolated VTE have the FVL variant. METHODOLOGY: Polymerase chain reaction and fluorescence monitoring. ANALYTICAL SENSITIVITY AND SPECIFICITY: 99 percent. LIMITATIONS: Diagnostic errors can occur due to rare sequence variations. F5 gene mutations, other than p.[id number], will not be detected. This test was developed and its performance characteristics determined by [facility]. It has not been cleared or approved by the [place] Food and Drug Administration. This test was performed in a CLIA certified laboratory and is intended for clinical purposes. Counseling and informed consent are recommended for genetic testing. Consent forms are available online. 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 Normal [facility] Comment on above: Performed By: #### U AMIC, URTPRT #### [facility] [address] [place] [address] Medical Claims Specialist: Gideon Bullock MD MTHFR 655C>T Mut Negative Normal [facility] Comment on above: Performed By: #### U AMIC, URTPRT #### [facility] [address] [place] [address] Medical Claims Specialist: Gideon Bullock MD MTHFR Interpretation See Note Normal [facility] Comment on above: Result Comment: (NOT E) Indication for testing: Determine genetic contribution to hyperhomocysteinemia. 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 The [employer] Practice Guidelines indicate [...] a contributing factor to hyperhomocysteinemia. Variants Tested: c.665C>T(p.Bkc729Cxr) and c.1286A>C(p.Tlq684Ylg). (legacy names C677T and I6236P, respectively). Clinical Sensitivity: Undefined; hyperhomocysteinemia is caused [...] developed and its performance characteristics determined by [facility]. It has not been cleared or approved by the [place] Food and Drug Administration. This test was performed in a CLIA certified laboratory and is intended for clinical purposes. Counseling and informed consent are recommended for genetic testing. Consent forms are available online. Performed By: [facility] [address] [place] [address] Resume Writer: Andrew Duran MD, PhD CLIA Number: [id number] Performed By: #### U AMI, URTPRT #### [facility] [address] [place] [address] Medical Claims Specialist: Gideon Bullock MD MTHFR SPECIMEN Whole Blood Normal [facility] Comment on above: Performed By: #### U VIVIEN, URTPRT #### [facility] [address] [place] [address] Medical Claims Specialist: Gideon Bullock MD AFP, Maternalon 10-11-2023 Determined by Ultrasound Normal [facility] Comment on above: Performed By: #### U AMIC, URTPRT #### [address] [address] Medical Claims Specialist: Gideon Bullock MD Due Date SEE NOTE [facility] Comment on above: Result Comment: Resu lts for Estimated Due Date: 02 26 24 Performed By: #### U AMIC, URTPRT #### [address] [address] Medical Claims Specialist: Gideon Bullock MD Family History No [facility] Comment on above: Performed By: #### U AMIC, URTPRT #### [facility] [address] [place] [address] Medical Claims Specialist: Gideon Bullock MD Gestat Age (exact) 20 wks, 0 days Normal [facility] Comment on above: Performed By: #### U AMIC, URTPRT #### [address] [address] Medical Claims Specialist: Gideon Bullock MD Ins Req Matern Diab Yes [facility] Comment on above: Performed By: #### U AMIC, URTPRT #### [address] [address] Medical Claims Specialist: Gideon Bullock MD Interpretation Screen Neg Normal [facility] Comment on above: Result Comment: (NOT [...] developed and its performance characteristics determined by [facility]. It has not been cleared or approved by the [place] Food and Drug Administration. This test was performed in a CLIA certified laboratory and is intended for clinical purposes. Performed By: #### U AMIC, URTPRT #### [facility] [facility] [address] [place] [address] Medical Claims Specialist: Gideon Bullock MD [age] [facility] Comment on above: Performed By: #### U AMIC, URTPRT #### [facility] [address] [place] [address] Medical Claims Specialist: Gideon Bullock MD Maternal Race Nonblack [facility] Comment on above: Performed By: #### U AMIC, URTPRT #### [facility] [address] [place] [address] Medical Claims Specialist: Gideon Bullock MD Maternal Weight 298.0 lbs. [facility] Comment on above: Performed By: #### U AMIC, URTPRT #### [facility] [address] [place] [address] Medical Claims Specialist: Gideon Bullock MD MoM for AFP 1.29 [facility] Comment on above: Performed By: #### U AMIC, URTPRT #### [facility] [address] [place] [address] Medical Claims Specialist: Gideon Bullock MD Number of Fetuses Rodriguez [facility] Comment on above: Performed By: #### U AMIC, URTPRT #### [facility] [address] [place] [address] Medical Claims Specialist: Gideon Bullock MD Patient's AFP 39 ng/mL [facility] Comment on above: Performed By: #### U AMIC, URTPRT #### [facility] [facility] [address] [place] [address] Medical Claims Specialist: Gideon Bullock MD Smoking No [facility] Comment on above: Performed By: #### U AMIC, URTPRT #### [facility] [address] [place] [address] Medical Claims Specialist: Gideon Bullock MD Specimen See Note Normal [facility] Comment on above: Result Comment: (NOT E) Initial sample Performed By: [facility] [address] [place] [address] Resume Writer: Andrew Duran MD, PhD CLIA Number: [id number] Performed By: #### U AMIC, URTPRT #### [facility] [address] [place] [address] Medical Claims Specialist: Gideon Bullock MD AFP, Maternalon 10-10-2023 Current Smoking NO [facility] Comment on above: Performed By: #### U AMIC, URTPRT #### [facility] [address] [place] [address] Medical Claims Specialist: Gideon Bullock MD Dating US Normal [facility] Comment on above: Performed By: #### U AMIC, URTPRT #### [facility] [address] [place] [address] Medical Claims Specialist: Gideon Bullock MD Diabetic YES Normal [facility] Comment on above: Performed By: #### U AMIC, URTPRT #### [facility] [address] [place] [address] Medical Claims Specialist: Gideon Bullock MD Donor Egg NO [facility] Comment on above: Performed By: #### U AMIC, URTPRT #### [facility] [address] [place] [address] Medical Claims Specialist: Gideon Bullock MD Estimated Due Date [id number] [facility] Comment on above: Performed By: #### U AMIC, URTPRT #### [facility] [address] [place] [address] Medical Claims Specialist: Gideon Bullock MD Family History NONE [facility] Comment on above: Performed By: #### U AMIC, URTPRT #### [facility] [address] [place] [address] Medical Claims Specialist: Gideon Bullock MD In Vitro Fertalizat NO [facility] Comment on above: Performed By: #### U AMIC, URTPRT #### [address] [address] Medical Claims Specialist: Gideon Bullock MD LMP date [id number] [facility] Comment on above: Performed By: #### U AMIC, URTPRT #### [facility] [facility] [address] [place] [address] Medical Claims Specialist: Gideon Bullock MD Maternal date [facility] Comment on above: Performed By: #### U AMIC, URTPRT #### [facility] [facility] [address] [place] [address] Medical Claims Specialist: Gideon Bullock MD Maternal Weight 298 [facility] Comment on above: Performed By: #### U AMIC, URTPRT #### [facility] [facility] [address] [place] [address] Medical Claims Specialist: Gideon Bullock MD Monochorionic Twins NO [facility] Comment on above: Performed By: #### U AMIC, URTPRT #### [facility] [facility] [address] [place] [address] Medical Claims Specialist: Gideon Bullock MD Patient Weight Units LB [facility] Comment on above: Performed By: #### U AMIC, URTPRT #### [facility] [facility] [address] [place] [address] Medical Claims Specialist: Gideon Bullock MD Race (Maternal) NON BLACK [facility] Comment on above: Performed By: #### U AMIC, URTPRT #### [address] [address] Medical Claims Specialist: Gideon Bullock MD Repeat Specimen NO Normal [facility] Comment on above: Performed By: #### U AMIC, URTPRT #### [address] [address] Medical Claims Specialist: Gideon Bullock MD Valproic/Carbamazep NONE Normal [facility] Comment on above: Performed By: #### U AMIC, URTPRT #### [address] [address] Medical Claims Specialist: Gideon Bullock MD Antithrombin III [place] 10-09 Antithrombin III Act 110 % Normal 83-122 [facility] Comment on above: Result Comment: Patients receiving Hirudin may have a falsely decreased Antitrombin III Activity. Performed By: #### P ROCAC, AT3A, PROSAC, HOCYS, GLYHGB, TSH, LUPPRO, FT4 #### [address] [address] Medical Claims Specialist: Gideon Bullock MD #### AAFPM #### [address] [address] Medical Claims Specialist: Gideon Bullock MD [facility] [address] [place], [place] [phone] Medical Claims Specialist: Fantasma Wood MD #### AF5MUT, AMTHFR, APTMUT #### [facility] [address] [place] [address] Medical Claims Specialist: Fantasma Wood MD Lupus Anticoagulanton 2023 Anticardiolipin IgA 1.8 APL Normal 0.0-14.0 [facility] Comment on above: Result Comment: Reference Range: <14.0 Negative 14.0-20.0 Equivocal >20.0 Positive When results are Equivocal, it is recommended to retest after 4-6 weeks. Performed By: #### P ROCAC, AT3A, PROSAC, HOCYS, GLYHGB, TSH, LUPPRO, FT4 #### [address] [address] Medical Claims Specialist: Gideon Bullock MD #### AAFPM #### [address] [address] Medical Claims Specialist: Gideon Bullock MD [facility] [address] [place] [phone] Medical Claims Specialist: Fantasma Wood MD #### AF5MUT, AMTHFR, APTMUT #### [address] [phone] Medical Claims Specialist: Fantasma Wood MD Anticardiolipin IgG <0.5 Normal 0.0-10.0 [facility] Comment on above: Result Comment: Reference Range: <10.0 Negative 10.0-40.0 Equivocal >40.0 Positive Performed By: #### P ROCAC, AT3A, PROSAC, HOCYS, GLYHGB, TSH, LUPPRO, FT4 #### [address] [address] Medical Claims Specialist: Gideon Bullock MD #### AAFPM #### [address] [address] Medical Claims Specialist: Gideon Bullock MD [facility] [address] [place] [phone] Medical Claims Specialist: Fantasma Wood MD #### AF5MUT, AMTHFR, APTMUT #### [facility] [address] [place] [phone] Medical Claims Specialist: Fantasma Wood MD Anticardiolipin IgM <0.8 Normal 0.0-10.0 [facility] Comment on above: Result Comment: Reference Range: <10.0 Negative 10.0-40.0 Equivocal >40.0 Positive Performed By: #### P ROCAC, AT3A, PROSAC, HOCYS, GLYHGB, TSH, LUPPRO, FT4 #### [address] [address] Medical Claims Specialist: Gideon Bullock MD #### AAFPM #### [address] [address] Medical Claims Specialist: Gideon Bullock MD [address] [address] Medical Claims Specialist: Fantasma Wood MD #### AF5MUT, AMTHFR, APTMUT #### [address] [address] Medical Claims Specialist: Fantasma Wood MD Dilute Heladio Viper Negative Normal [facility] Comment on above: Performed By: #### P ROCAC, AT3A, PROSAC, HOCYS, GLYHGB, TSH, LUPPRO, FT4 #### [address] [address] Medical Claims Specialist: Gideon Bullock MD #### AAFPM #### [address] [address] Medical Claims Specialist: Gideon Bullock MD [address] [address] Medical Claims Specialist: Fantasma Wood MD #### AF5MUT, AMTHFR, APTMUT #### [address] [address] Medical Claims Specialist: Fantasma Wood MD Protein C Activityon 024 Protein C Activity 136 % Normal >80 [facility] Comment on above: Result Comment: Patients [...] PROSAC, HOCYS, GLYHGB, TSH, LUPPRO, FT4 #### [facility] [address] [place] [address] Medical Claims Specialist: Gideon Bullock MD #### AAFPM #### [address] [address] Medical Claims Specialist: Gideon Bullock MD [facility] [address] [place] [address] Medical Claims Specialist: Fantasma Wood MD #### AF5MUT, AMTHFR, APTMUT #### [facility] [address] [place] [address] Medical Claims Specialist: Fantasma Wood MD Protein S Activityon 024 Protein S Activity 68 % Normal 59-130 [facility] Comment on above: Result Comment: Patients [...] PROSAC, HOCYS, GLYHGB, TSH, LUPPRO, FT4 #### [facility] [address] [place] [address] Medical Claims Specialist: Gideon Bullock MD #### AAFPM #### [address] [address] Medical Claims Specialist: Gideon Bullock MD [facility] [address] [place] [address] Medical Claims Specialist: Fantasma Wood MD #### AF5MUT, AMTHFR, APTMUT #### [facility] [address] [place] [address] Medical Claims Specialist: Fantasma Wood MD Hemoglobin A1Con 10-09-2023 Glucose [Mass/Vol] 103 mg/dL Normal [facility] Comment on above: Result Comment: The ADA and AACC recommend providing the estimated average glucose result to permit better patient understanding of their HBA1c result. Performed By: #### P ROCAC, AT3A, PROSAC, HOCYS, GLYHGB, TSH, LUPPRO, FT4 #### [address] [address] Medical Claims Specialist: Gideon Bullock MD #### AAFPM #### [address] [address] Medical Claims Specialist: Gideon Bullock MD [facility] [address] [place], [place] [phone] Medical Claims Specialist: Fantasma Wood MD #### AF5MUT, AMTHFR, APTMUT #### [facility] [address] [place], [place] [phone] Medical Claims Specialist: Fantasma Wood MD HbA1c (Bld) [Mass fraction] 5.2 % Normal 4.0-6.0 [facility] Comment on above: Performed By: #### P ROCAC, AT3A, PROSAC, HOCYS, GLYHGB, TSH, LUPPRO, FT4 #### [address] [address] Medical Claims Specialist: Gideon Bullock MD #### AAFPM #### [address] [address] Medical Claims Specialist: Gideon Bullock MD [facility] [address] [place], [place] [phone] Medical Claims Specialist: Fantasma Wood MD #### AF5MUT, AMTHFR, APTMUT #### [facility] [address] [place] [address] Medical Claims Specialist: Fantasma Wood MD Homocysteineon 10-09-2023 Homocysteine 4.3 umol/L Normal 0.0-15.0 [facility] Comment on above: Performed By: #### P ROCAC, AT3A, PROSAC, HOCYS, GLYHGB, TSH, LUPPRO, FT4 #### [address] [address] Medical Claims Specialist: Gideon Bullock MD #### AALESLIEM #### [address] [address] Medical Claims Specialist: Gideon Bullock MD [address] [phone] Medical Claims Specialist: Fantasma Wood MD #### AF5MUT, AMTHFR, APTMUT #### [facility] [address] [place], [place] [phone] Medical Claims Specialist: Fantasma Wood MD Lupus Anticoagulanton 2023 aPTT Coag (Bld) [Time] 27.5 s Normal 23.0-36.5 [facility] Comment on above: Result Comment: IV Heparin Therapy Range: 66.0-92.0 sec Performed By: #### P ROCAC, AT3A, PROSAC, HOCYS, GLYHGB, TSH, LUPPRO, FT4 #### [address] [address] Medical Claims Specialist: Gideon Bullock MD #### AAFPM #### [address] [address] Medical Claims Specialist: Gideon Bullock MD [facility] [address] [place] [phone] Medical Claims Specialist: Fantasma Wood MD #### AF5MUT, AMTHFR, APTMUT #### [facility] [address] [place], [place] [phone] Medical Claims Specialist: Fantasma Wood MD INR Coag (PPP) [Relative time] 1.0 {INR} Normal [facility] Comment on above: Result Comment: Therapeutic Range: Moderate Anticoagulant Intensity: INR = 2.0-3.0 High Anticoagulant Intensity: INR = 2.5-3.5 Performed By: #### P ROCAC, AT3A, PROSAC, HOCYS, GLYHGB, TSH, LUPPRO, FT4 #### [address] [address] Medical Claims Specialist: Gideon Bullock MD #### AAFPM #### [address] [address] Medical Claims Specialist: Gideon Bullock MD [address] [phone] Medical Claims Specialist: Fantasma Wood MD #### AF5MUT, AMTHFR, APTMUT #### [address] [phone] Medical Claims Specialist: Fantasma Wood MD PT Coag (PPP) [Time] 13.1 s Normal 11.7-14.9 [facility] Comment on above: Performed By: #### P ROCAC, AT3A, PROSAC, HOCYS, GLYHGB, TSH, LUPPRO, FT4 #### [address] [address] Medical Claims Specialist: Gideon Bullock MD #### AAFPM #### [address] [address] Medical Claims Specialist: Gideon Bullock MD [address] [phone] Medical Claims Specialist: Fantasma Wood MD #### AF5MUT, AMTHFR, APTMUT #### [address] [phone] Medical Claims Specialist: Fantasma Wood MD Protein,Tot,Barry Uron 2023 Creatinine [Mass/Vol] 120.0 mg/dL Normal 28.0-217.0 [facility] Comment on above: Performed By: #### U AMIC, URTPRT #### [facility] [address] [place] [address] Medical Claims Specialist: Giedon Bullock MD Tot Prot. Conc. 10 mg/dL Normal [facility] Comment on above: Result Comment: No n ormal range established. Performed By: #### U AMIC, URTPRT #### [address] [address] Medical Claims Specialist: Gideon Bullock MD TP/Cre Ratio 0.08 Normal [facility] Comment on above: Performed By: #### U AMIKaushik URTPRT #### [facility] [address] [place] [address] Medical Claims Specialist: Gideon Bullock MD Thyroid Stim. Horm.on 2023 Thyroid Stim. Horm. 2.35 uIU/mL Normal 0.27-4.20 [facility] Comment on above: Performed By: #### P ROCAC, AT3A, PROSAC, HOCYS, GLYHGB, TSH, LUPPRO, FT4 #### [address] [address] Medical Claims Specialist: Gideon Bullock MD #### AAFPM #### [address] [address] Medical Claims Specialist: Gideon Bullock MD [address] [address] Medical Claims Specialist: Fantasma Wood MD #### AF5MUT, AMTHFR, APTMUT #### [facility] [address] [place] [address] Medical Claims Specialist: Fantasma Wood MD Thyroxine, Freeon 10-09-2023 Thyroxine, Free 0.9 ng/dL Low 0.92-1.68 [facility] Comment on above: Performed By: #### P ROCAC, AT3A, PROSAC, HOCYS, GLYHGB, TSH, LUPPRO, FT4 #### [facility] [address] [place] [address] Medical Claims Specialist: Gideon Bullock MD #### AAFPM #### [facility] [address] [place] [address] Medical Claims Specialist: Gideon Bullock MD [facility] [address] [place], [place] [phone] Medical Claims Specialist: Fantasma Wood MD #### AF5MUT, AMTHFR, APTMUT #### [facility] [address] [place] [address] Medical Claims Specialist: Fantasma Wood MD XR FOOT RT MIN [...] Blas MD on 09/10/2023 12:57 PM Normal [facility] MR BRAIN W WO CONTon 024 [...] Rice MD on 06/14/2023 8:30 AM Normal [facility] BASIC METABOLIC PANLon 05-16 Anion gap [Moles/Vol] 10 mmol/L Normal 5-15 [facility] Comment on above: Performed By: #### B PHYLLIS CBCA #### [facility] ([id number]) [address] [place] [address] Calcium [Mass/Vol] 8.9 mg/dL Normal 8.5-10.5 [facility] Comment on above: Performed By: #### B PHYLLIS CBCA #### [facility] ([id number]) [address] [place] [address] Chloride [Moles/Vol] 107 mmol/L Normal 98-109 [facility] Comment on above: Performed By: #### B PHYLLIS CBCA #### [facility] ([id number]) [address] [place] [address] CO2 [Moles/Vol] 18 mmol/L Low 22-32 [facility] Comment on above: Performed By: #### B PHYLLIS CBCA #### [facility] ([id number]) [address] [place] [address] Creatinine [Mass/Vol] 0.58 mg/dL Normal 0.40-1.00 [facility] Comment on above: Result Comment: METH OD TRACEABLE TO IDMS STANDARD Performed By: #### B PHYLLIS CBCA #### [facility] ([id number]) [address] [place] [address] eGFR (CKD-EPI) NON-RACE DEPENDENT >90 Normal >59 [facility] Comment on above: Result Comment: Reported eGFR is based on the CKD-EPI 2020 equation that does not use a race coefficient. Performed By: #### B PHYLLIS CBCA #### [facility] ([id number]) [address] [place] [address] Glucose [Mass/Vol] 109 mg/dL High 65-99 [facility] Comment on above: Performed By: #### B PHYLLIS CBCA #### [facility] ([id number]) [address] [place] [address] Potassium [Moles/Vol] 3.3 mmol/L Low 3.5-5.0 [facility] Comment on above: Performed By: #### B PHYLLIS CBCA #### [facility] ([id number]) [address] [place] [address] Sodium [Moles/Vol] 135 mmol/L Normal 134-146 [facility] Comment on above: Performed By: #### B PHYLLIS CBCA #### [facility] ([id number]) [address] [place] [address] Urea nitrogen [Mass/Vol] 16 mg/dL Normal 5-23 [facility] Comment on above: Performed By: #### B PHYLLIS CBCA #### [facility] ([id number]) [address] [place] [address] CBC AND AUTO DIFFon 05-16- 24 ABSOLUTE BASOPHIL 0.1 X10E9/L Normal 0.0-0.2 [facility] Comment on above: Performed By: #### B PHYLLIS CBCA #### [facility] ([id number]) [address] [place] [address] ABSOLUTE NEUTROPHIL 4.6 X10E9/L Normal 1.5-6.6 [facility] Comment on above: Performed By: #### B MP, CBCA #### [facility] ([id number]) [address] [place] [address] Basophils/100 WBC (Bld) 0.7 % Normal [facility] Comment on above: Performed By: #### B MP, CBCA #### [facility] ([id number]) [address] [place] [address] Eosinophils (Bld) [#/Vol] 0.3 10*3/uL Normal 0.0-0.4 [facility] Comment on above: Performed By: #### B MP, CBCA #### [facility] ([id number]) [address] [place] [address] Eosinophils/100 WBC (Bld) 4.4 % Normal [facility] Comment on above: Performed By: #### B MP, CBCA #### [facility] ([id number]) [address] [place] [address] Erythrocyte distribution width (RBC) [Ratio] 13.3 % Normal 11.5-15.0 [facility] Comment on above: Performed By: #### B MP, CBCA #### [facility] ([id number]) [address] [place] [address] Hematocrit (Bld) [Volume fraction] 40.5 % Normal 35-47 [facility] Comment on above: Performed By: #### B MP, CBCA #### [facility] ([id number]) [address] [place] [address] Hemoglobin (Bld) [Mass/Vol] 13.8 g/dL Normal 11.7-15.5 [facility] Comment on above: Performed By: #### B MP, CBCA #### [facility] ([id number]) [address] [place] [address] 23294 Lymphocytes (Bld) [#/Vol] 2.0 10*3/uL Normal 1.0-3.5 [facility] Comment on above: Performed By: #### B MP, CBCA #### [facility] ([id number]) [address] [place] [address] 57405 Lymphocytes/100 WBC (Bld) 26.3 % Normal [facility] Comment on above: Performed By: #### B MP, CBCA #### [facility] ([id number]) [address] [place] [address] 80861 MCH (RBC) [Entitic mass] 27.9 pg Normal 27-34 [facility] Comment on above: Performed By: #### B PHYLLIS, CBCA #### [facility] ([id number]) [address] [place] [address] 78368 MCHC (RBC) [Mass/Vol] 34.0 g/dL Normal 32-36 [facility] Comment on above: Performed By: #### B PHYLLIS, CBCA #### [facility] ([id number]) [address] [place] [address] 30245 MCV (RBC) [Entitic vol] 82 fL Normal 80-100 [facility] Comment on above: Performed By: #### B PHYLLIS, CBCA #### [facility] ([id number]) [address] [place] [address] 44938 Monocytes (Bld) [#/Vol] 0.5 10*3/uL Normal 0-0.9 [facility] Comment on above: Performed By: #### B PHYLLIS, CBCA #### [facility] ([id number]) [address] [place] [address] 25217 Monocytes/100 WBC (Bld) 6.9 % Normal [facility] Comment on above: Performed By: #### B PHYLLIS, CBCA #### [facility] ([id number]) [address] [place] [address] 16705 Neutrophils/100 WBC (Bld) 61.7 % Normal [facility] Comment on above: Performed By: #### B PHYLLIS CBCA #### [facility] ([id number]) [address] [place] [address] 86356 Platelet mean volume (Bld) [Entitic vol] 8.4 fL Normal 7-12 [facility] Comment on above: Performed By: #### B PHYLLIS CBCA #### [facility] ([id number]) [address] [place] [address] 52510 Platelets (Bld) [#/Vol] 247 10*3/uL Normal 150-450 [facility] Comment on above: Performed By: #### B PHYLLIS, CBCA #### [facility] ([id number]) [address] [place] [address] 98434 RBC COUNT 4.93 X10E12/L Normal 3.80-5.20 [facility] Comment on above: Performed By: #### B PHYLLIS CBCA #### [facility] ([id number]) [address] [place] [address] 49699 WBC (Bld) [#/Vol] 7.5 10*3/uL Normal 4.0-11.0 [facility] Comment on above: Performed By: #### B PHYLLIS CBCA #### [facility] ([id number]) [address] [place] [address]RAIN WO CONTon CT BRAIN WO [...] Leon MD on 05/16/2023 10:57 AM Normal [facility] HCG ( test) Ql (U)o n 05-16-2023 Beta HCG ( test) Ql (U) Negative Normal NEG [facility] Comment on above: Performed By: #### 2 106-3 #### [facility] ([id number]) [address] [place] [address] 89824 URN MACROSCOPIC NURon 2023 BILIRUBIN TADEO Negative [facility] Comment on above: Performed By: #### N UM #### [facility] ([id number]) [address] [place] [address] 37612 BLOOD/HGB TADEO Negative Normal [facility] Comment on above: Performed By: #### N UM #### [facility] ([id number]) [address] [place] [address] 17575 GLUCOSE TADEO Negative Normal [facility] Comment on above: Performed By: #### N UM #### [facility] ([id number]) [address] [place] [address] 23693 KETONES TADEO Negative Normal [facility] Comment on above: Performed By: #### N UM #### [facility] ([id number]) [address] [place] [address] 50712 LEUKOCYTE ESTERASE TADEO Negative Normal [facility] Comment on above: Performed By: #### N UM #### [facility] ([id number]) [address] [place] [address] 32272 NITRITE TADEO Negative Normal NEG [facility] Comment on above: Performed By: #### N UM #### [facility] ([id number]) [address] [place] [address] 63901 PH TADEO 6.5 Normal 5.0-8.5 [facility] Comment on above: Performed By: #### N UM #### [facility] ([id number]) [address] [place] [address] 07278 PROTEIN TADEO Negative Normal NEG [facility] Comment on above: Performed By: #### N UM #### [facility] ([id number]) [address] [place] [address] 83627 SPECIFIC GRAVITY TADEO 1.025 Normal 1.003-1.035 [facility] Comment on above: Performed By: #### N UM #### [facility] ([id number]) [address] [place] [address] 40418 UROBILINOGEN TADEO 0.2 eu/dL Normal <1.[address] [facility] Comment on above: Performed By: #### N UM #### [facility] ([id number]) [address] [place] [address] 33547 COVID + FLU Quick Testingon 02-05-2023 SARS-CoV-2 (COVID-19) RNA SARANYA+probe Ql (Unsp spec) Negative [facility] Other COVID + FLU Quick Testing Negative [facility] Other Aerobic Cultureon 12-22-2022 Aerobic Culture Comment tube 2 No Growth 2 Days Comment tube 2 No Anaerobes Isolated 3 Days Comment tube 2 Gram Stain Result No White Blood Cells Seen No Bacteria Seen PERFORMED BY: [facility] [address] [facility] [place] [address] PATHOLOGIST CNC LASER OPERATOR ALLEN COATES M.D. Normal [facility] Comment on above: Performed By: #### C BC, PT, PTT #### [facility] [address] [place] [address] CSF PCR Panelon 12-22-2022 CSF PCR Panel [...] Varicella zoster virus Not detected PERFORMED BY: [place] [address] PATHOLOGIST CNC LASER OPERATOR ALLEN COATES M.D. [facility] Comment on above: Performed By: #### C SF PCR PANEL #### [address] Cell Count Differential,CSFo n 12-22-2022 Appearance, CSF Clear Normal Clear [facility] Comment on above: Order Comment: Comme nt tube 1 Performed By: #### C SFCCDIFF #2, CSF TP #2, CSF GLU #2, CSF GLU, CSF TP, GS, AERC, CSFCCDIFF #### [address] Order Comment: Comme nt tube 4 Color, CSF Colorless Normal Colorless [facility] Comment on above: Order Comment: Comme nt tube 1 Performed By: #### C SFCCDIFF #2, CSF TP #2, CSF GLU #2, CSF GLU, CSF TP, GS, AERC, CSFCCDIFF #### [address] Order Comment: Comme nt tube 4 CSF Supernatant Color Colorless Normal Colorless [facility] Comment on above: Order Comment: Comme nt tube 1 Performed By: #### C SFCCDIFF #2, CSF TP #2, CSF GLU #2, CSF GLU, CSF TP, GS, AERC, CSFCCDIFF #### [place] [address] [place] Order Comment: Comme nt tube 4 CSF Volume, Total 29.4 mL Normal [facility] Comment on above: Order Comment: Comme nt tube 1 Performed By: #### C SFCCDIFF #2, CSF TP #2, CSF GLU #2, CSF GLU, CSF TP, GS, AERC, CSFCCDIFF #### [facility] [address] Order Comment: Comme nt tube 4 Lymphocytes, CSF 4 Normal [facility] Comment on above: Order Comment: Comme nt tube 1 Result Comment: The reference interval and other method performance specifications have not been established for this body fluid. The test result must be integrated into the clinical context for interpretation. Performed By: #### C SFCCDIFF #2, CSF TP #2, CSF GLU #2, CSF GLU, CSF TP, GS, AERC, CSFCCDIFF #### [facility] [address] [place] [address] RBC, CSF 2 /uL [facility] Comment on above: Order Comment: Comme nt tube 1 Result Comment: The reference interval and other method performance specifications have not been established for this body fluid. The test result must be integrated into the clinical context for interpretation. Performed By: #### C SFCCDIFF #2, CSF TP #2, CSF GLU #2, CSF GLU, CSF TP, GS, AERC, CSFCCDIFF #### [facility] [address] [place] [address] TNC, CSF 1 /uL Normal 0-5 [facility] Comment on above: Order Comment: Comme nt tube 1 Performed By: #### C SFCCDIFF #2, CSF TP #2, CSF GLU #2, CSF GLU, CSF TP, GS, AERC, CSFCCDIFF #### [facility] [address] [place] [address] Order Comment: Comme nt tube 4 Tube Number Tested, CSF Tube Number: 1 [facility] Comment on above: Order Comment: Comme nt tube 1 Result Comment: PERF ORMED BY: [place] [address] PATHOLOGIST CNC LASER OPERATOR ALLEN COATES M.D. Performed By: #### C SFCCDIFF #2, CSF TP #2, CSF GLU #2, CSF GLU, CSF TP, GS, AERC, CSFCCDIFF #### [facility] [address] [place] [address] Cell Count Differential,CSF #2on 12-22-2022 Lymphocytes, CSF 7 Normal [facility] Comment on above: Order Comment: Comme nt tube 4 Result Comment: The reference interval and other method performance specifications have not been established for this body fluid. The test result must be integrated into the clinical context for interpretation. Performed By: #### C SFCCDIFF #2, CSF TP #2, CSF GLU #2, CSF GLU, CSF TP, GS, AERC, CSFCCDIFF #### [address] RBC, CSF 1 /uL Normal [facility] Comment on above: Order Comment: Comme nt tube 4 Result Comment: The reference interval and other method performance specifications have not been established for this body fluid. The test result must be integrated into the clinical context for interpretation. Performed By: #### C SFCCDIFF #2, CSF TP #2, CSF GLU #2, CSF GLU, CSF TP, GS, AERC, CSFCCDIFF #### [address] Tube Number Tested, CSF Tube Number: 4 Normal [facility] Comment on above: Order Comment: Comme nt tube 4 Result Comment: PERF ORMED BY: [place] [address] PATHOLOGIST CNC LASER OPERATOR ALLEN COATES M.D. Performed By: #### C SFCCDIFF #2, CSF TP #2, CSF GLU #2, CSF GLU, CSF TP, GS, AERC, CSFCCDIFF #### [facility] [address] [place] [address] Cerebrospinal fluid post-adams trifugation appearance determinationOrdered By: Razia Muller on 12-22-2022 Appearance (Spun CSF) Colorless Colorless [facility] Cerebrospinal fluid sample t ube volume measurementOrdered By: Razia Muller on 12-22-2022 Specimen volume (CSF) 29.4 mL [facility] Color CSFOrdered By: Razia longo on 12-22-2022 Color (CSF) Colorless Colorless [facility] Glucose, CSF #2on 12-22-2022 Glucose, CSF #2 71 mg/dL High 40-70 [facility] Comment on above: Order Comment: Comme nt tube 4 Performed By: #### C BC, PT, PTT #### [facility] [address] [place] [address] [place] Glucose, Spinal Fluidon Glucose, Spinal Fluid 73 mg/dL High 40-70 [facility] Comment on above: Order Comment: Comme nt tube 1 Performed By: #### C SFCCDIFF #2, CSF TP #2, CSF GLU #2, CSF GLU, CSF TP, GS, AERC, CSFCCDIFF #### [facility] [address] [place] [address] Gram Stainon 12-22-2022 Microscopic observation Gram stain Nom (Unsp spec) Comment tube 2 Gram Stain Result No White Blood Cells Seen No Bacteria Seen PERFORMED BY: [place] [address] PATHOLOGIST CNC LASER OPERATOR ALLEN COATES M.D. [facility] Comment on above: Performed By: #### C SFCCDIFF #2, CSF TP #2, CSF GLU #2, CSF GLU, CSF TP, GS, AERC, CSFCCDIFF #### [facility] [address] [place] [address] IR guided lumbar puncture LP on 12-22-2022 IR guided lumbar puncture LP [facility] [place] [address] [place] [address] Interventional Radiology Rpt Signed Patient: Yani Stevens MR#: [id number] : 1990 Acct:[id number] Age/Sex: 32 / F ADM Date: 12/22/22 Loc: XD Room: Type: [facility] Attending Dr: Razia Muller [employer] SALES PERSON-COBOL ENGINEER-C Copies to: Razia Muller APRN-COBOL ENGINEER-C Ordering Provider: TONJA Jimenez Date of Service: [...] Vernon Lin M.D.12/22/2022 1:07 PM Dictation Location: [place] [address] Transcribed By: [facility] 12/22/22 1307 Dictated By: Vernon Lin II, MD 12/22/22 1253 Signed By: 12/22/22 1307 [facility] 12-22-2022 L ---- Specimen: [id number] Received: 12/22/22 Status: TERRANCE Earlyhe Num: [id number] Spec Type: Cytology Subm Dr: TONJA Jimenez Tissues: A CSF (CSF) Procedures: Cyto Prepstain, DIFF QWIK, PAPSTN Age/ Patient Sex Location Account Attending Physician Yani Stevens 32/F XD [id number] TONJA Jimenez SPEC NUM: [id number] RECD: 12/22/22 STATUS: TERRANCE PAN NUM: [id number] TOMASA: 12/22/[address] [facility] [address]: TONJA Jimenez ENTERED: 12/22/[address] [facility] [address]: Vernon Lin II, MD SPEC TYPE: Cytology DEPT: [facility] ENTERED BY: [id number] RECV BY: [id number] ORDERED: Cyto Prepstain, DIFF QWIK, PAPSTN ORDERED: [...] [id number] Received: 12/22/22 Status: TERRANCE [place] Num: [id number] Spec Type: Cytology Subm Dr: Razia Muller APRN-COBOL ENGINEER-C Tissues: A CSF (CSF) Procedures: Cyto Prepstain, DIFF QWIK, PAPSTN Patient: Yani Stevens [id number] (Continued) Signed (signature on file) Dimas De Anda MD 12/26/22 0905 Normal [facility] Manual cerebrospinal fluid e rythrocytes count (number/volume)Ordered By: Razia Muller on 12-22-2022 RBC Manual cnt (CSF) [#/Vol] 1 /uL [facility] Comment on above: The reference interv al and other method performance specifications have not been established for this body fluid. The test result must be integrated into the clinical context for interpretation. No Panel InformationOrdered By: Razia Muller on 12-22-2022 CSF Appearance Clear Clear [facility] CSF Eosinophils N/A [facility] CSF Lymphocytes 7 [facility] Comment on above: The reference interv al and other method performance specifications have not been established for this body fluid. The test result must be integrated into the clinical context for interpretation. CSF Monocytes N/A [facility] CSF Neutrophils N/A [facility] CSF Tube Number Tube number: 4 [facility] Nucleated cells [#/volume] i n Cerebral spinal fluid by Manual countOrdered By: Razia Muller on 12-22-2022 Nucleated cells Manual cnt (CSF) [#/Vol] 0.001 10*3/uL 0-5 [facility] Total Protein, CSF #2on 09-0 Total Protein, CSF #2 31 mg/dL Normal 15-45 [facility] Comment on above: Order Comment: Comme nt tube 4 Result Comment: PERF ORMED BY: [facility] [address] [address] PATHOLOGIST CNC LASER OPERATOR ALLEN COATES M.D. Performed By: #### C BC, PT, PTT #### [facility] [address] Total Protein, Spinal Fluido n 12-22-2022 Total Protein, Spinal Fluid 34 mg/dL Normal 15-45 [facility] Comment on above: Order Comment: Comme nt tube 1 Result Comment: PERF ORMED BY: [place] [address] PATHOLOGIST CNC LASER OPERATOR ALLEN COATES M.D. Performed By: #### C BC, PT, PTT #### [address] Activated partial thrombopla stin time (aPTT) in platelet poor plasma by coagulation aOrdered By: Razia Muller on 12-20-2022 aPTT Coag (PPP) [Time] 32.8 s 25.1-36.5 [facility] Basophils Auto (Bld) [#/Vol] Ordered By: Razia Muller on 12-20-2022 Basophils (Bld) [#/Vol] 0.0 10*3/uL 0.0-0.2 [facility] Basophils/100 WBC Auto (Bld) Ordered By: Razia Muller on 12-20-2022 Basophils/100 WBC (Bld) 0.5 % . [facility] Complete Blood Count Auto Di ffon 12-20-2022 Basophils (Bld) [#/Vol] 0.0 10*3/uL Normal 0.0-0.2 [facility] Comment on above: Result Comment: PERF ORMED BY: [place] [address] PATHOLOGIST CNC LASER OPERATOR ALLEN COATES M.D. Performed By: #### C BC, PT, PTT #### [place] [address] [place] Basophils/100 WBC (Bld) 0.5 % Normal . [facility] Comment on above: Performed By: #### C BC, PT, PTT #### [place] [id number] [facility] Eosinophils (Bld) [#/Vol] 0.2 10*3/uL Normal 0.0-0.45 [facility] Comment on above: Performed By: #### C BC, PT, PTT #### [facility] [address] [place] [address] [place] Eosinophils/100 WBC (Bld) 3.2 % Normal . [facility] Comment on above: Performed By: #### C BC, PT, PTT #### [facility] [address] Erythrocyte distribution width (RBC) [Ratio] 13.9 % Normal 11.9-15.3 [facility] Comment on above: Performed By: #### C BC, PT, PTT #### [facility] [address] Hematocrit (Bld) [Volume fraction] 40.9 % Normal 34.0-46.4 [facility] Comment on above: Performed By: #### C BC, PT, PTT #### [facility] [address] Hemoglobin (Bld) [Mass/Vol] 13.6 g/dL Normal 11.8-15.4 [facility] Comment on above: Performed By: #### C BC, PT, PTT #### [address] Lymphocytes (Bld) [#/Vol] 2.1 10*3/uL Normal 1.00-4.8 [facility] Comment on above: Performed By: #### C BC, PT, PTT #### [place] [address] [place] Lymphocytes/100 WBC (Bld) 29.1 % Normal . [facility] Comment on above: Performed By: #### C BC, PT, PTT #### [facility] [address] MCH (RBC) [Entitic mass] 27.6 pg Normal 24.7-34.3 [facility] Comment on above: Performed By: #### C BC, PT, PTT #### [address] MCV (RBC) [Entitic vol] 83.0 fL Normal 80-100 [facility] Comment on above: Performed By: #### C BC, PT, PTT #### [facility] [address] Mean Corpuscular HGB Conc 33.2 g/dL Normal 32.0-35.0 [facility] Comment on above: Performed By: #### C BC, PT, PTT #### [facility] [address] Monocytes (Bld) [#/Vol] 0.5 10*3/uL Normal 0.0-0.8 [facility] Comment on above: Performed By: #### C BC, PT, PTT #### [facility] [address] Monocytes/100 WBC (Bld) 6.3 % Normal . [facility] Comment on above: Performed By: #### C BC, PT, PTT #### [facility] [address] [place] [address] Neutrophils (Bld) [#/Vol] 4.4 10*3/uL Normal 1.8-7.7 [facility] Comment on above: Performed By: #### C BC, PT, PTT #### [address] Neutrophils/100 WBC (Bld) 60.9 % Normal . [facility] Comment on above: Performed By: #### C BC, PT, PTT #### [facility] [address] [place] [address] NRBC% 0.1 /100{WBC} Normal 0-0.5 [facility] Comment on above: Performed By: #### C BC, PT, PTT #### [facility] [address] Platelet mean volume (Bld) [Entitic vol] 8.1 fL Normal 6.3-10.7 [facility] Comment on above: Performed By: #### C BC, PT, PTT #### [facility] [address] Platelets (Bld) [#/Vol] 222 10*3/uL Normal 150-450 [facility] Comment on above: Performed By: #### C BC, PT, PTT #### [facility] [address] RBC (Bld) [#/Vol] 4.93 10*6/uL Normal 3.60-5.00 [facility] Comment on above: Performed By: #### C BC, PT, PTT #### [facility] [address] WBC (Bld) [#/Vol] 7.3 10*3/uL Normal 3.8-11.[address] [facility] Comment on above: Performed By: #### C BC, PT, PTT #### [facility] [address] Eosinophils Auto (Bld) [#/Vo l]Ordered By: Razia Muller on 12-20-2022 Eosinophils (Bld) [#/Vol] 0.2 10*3/uL 0.0-0.45 [facility] Eosinophils/100 WBC Auto (Bl d)Ordered By: Razia Muller on 12-20-2022 Eosinophils/100 WBC (Bld) 3.2 % . [facility] Erythrocyte distribution wid th Auto (RBC) [Ratio]Ordered By: Razia Muller on 12-20-2022 Erythrocyte distribution width (RBC) [Ratio] 13.9 % 11.9-15.3 [facility] Hematocrit Auto (Bld) [Volum e fraction]Ordered By: Razia Muller on 12-20-2022 Hematocrit (Bld) [Volume fraction] 40.9 % 34.0-46.4 [facility] Hemoglobin [Mass/volume] in BloodOrdered By: Razia Muller on 12-20-2022 Hemoglobin (Bld) [Mass/Vol] 13.6 g/dL 11.8-15.4 [facility] INR in Platelet poor plasma by Coagulation assayOrdered By: Razia Muller on 12-20-2022 INR Coag (PPP) [Relative time] 1.0 {INR} [facility] Comment on above: INR Therapeutic Rang e [...] PT Coag (PPP) [Time] 11.1 s 9.0-12.9 [facility] Leukocytes [#/volume] correc burke for nucleated erythrocytes in Blood by Automated counOrdered By: Razia Muller on 12-20-2022 WBC corrected for nucl RBC Auto (Bld) [#/Vol] 7.3 10*3/uL 3.8-11.6 [facility] Lymphocytes Auto (Bld) [#/Vo l]Ordered By: Razia Muller on 12-20-2022 Lymphocytes (Bld) [#/Vol] 2.1 10*3/uL 1.00-4.8 [facility] Lymphocytes/100 WBC Auto (Bl d)Ordered By: Razia Muller on 12-20-2022 Lymphocytes/100 WBC (Bld) 29.1 % . [facility] MCH Auto (RBC) [Entitic mass ]Ordered By: Razia Muller on 12-20-2022 MCH (RBC) [Entitic mass] 27.6 pg 24.7-34.3 [facility] MCHC Auto (RBC) [Mass/Vol]Or dered By: Razia Muller on 12-20-2022 MCHC (RBC) [Mass/Vol] 33.2 g/dL 32.0-35.0 [facility] MCV Auto (RBC) [Entitic vol] Ordered By: aRzia Muller on 12-20-2022 MCV (RBC) [Entitic vol] 83.0 fL 80-100 [facility] Monocytes Auto (Bld) [#/Vol] Ordered By: Razia Muller on 12-20-2022 Monocytes (Bld) [#/Vol] 0.5 10*3/uL 0.0-0.8 [facility] Monocytes/100 WBC Auto (Bld) Ordered By: Razia Muller on 12-20-2022 Monocytes/100 WBC (Bld) 6.3 % . [facility] Neutrophils Auto (Bld) [#/Vo l]Ordered By: Razia Muller on 12-20-2022 Neutrophils (Bld) [#/Vol] 4.4 10*3/uL 1.8-7.7 [facility] Neutrophils/100 WBC Auto (Bl d)Ordered By: Razia Mluler on 12-20-2022 Neutrophils/100 WBC (Bld) 60.9 % . [facility] Nucleated erythrocytes [Pres ence] in Blood by Automated countOrdered By: Razia Muller on 12-20-2022 Nucleated RBC Auto Ql (Bld) 0.1 /100{WBC} 0-0.5 [facility] Partial Thromboplastin Timeo n 12-20-2022 aPTT Coag (Bld) [Time] 32.8 s Normal 25.1-36.5 [facility] Comment on above: Result Comment: PERF ORMED BY: [place] [address] PATHOLOGIST CNC LASER OPERATOR ALLEN COATES M.D. Performed By: #### C BC, PT, PTT #### [address] Platelet mean volume Auto (B ld) [Entitic vol]Ordered By: Razia Muller on 12-20-2022 Platelet mean volume (Bld) [Entitic vol] 8.1 fL 6.3-10.7 [facility] Platelets Auto (Bld) [#/Vol] Ordered By: Razia Muller on 12-20-2022 Platelets (Bld) [#/Vol] 222 10*3/uL 150-450 [facility] Prothrombin Time INRon 12-20 INR Coag (PPP) [Relative time] 1.0 {INR} Normal [facility] Comment on above: Result Comment: INR Therapeutic [...] By: #### C BC, PT, PTT #### [facility] [address] [id number] [facility] PT Coag (PPP) [Time] 11.1 s Normal 9.0-12.9 [facility] Comment on above: Performed By: #### C BC, PT, PTT #### [facility] [address] [id number] [facility] RBC Auto (Bld) [#/Vol]Ordere d By: Razia Renzo on 12-20-2022 RBC (Bld) [#/Vol] 4.93 10*6/uL 3.60-5.00 [facility] WBC Auto (Bld) [#/Vol]Ordere d By: Razia Muller on 12-20-2022 WBC (Bld) [#/Vol] 7.3 10*3/uL 3.8-11.[address] [facility] POC Glucose Fingerstickon Glucose [Mass/Vol] 85 mg/dL 65 - 105 mg/dL [facility] C.trachomatis N.gonorrhoeae DNA, Urineon 07-21-2022 Chlamydia sp DNA SARANYA+probe Ql (U) Negative NEGATIVE [facility] Comment on above: CHLAMYDIA TRACHOMATI S DNA [...] gonorrhoeae DNA SARANYA+probe Ql (U) Negative NEGATIVE [facility] Comment on above: NEISSERIA GONORRHOEA E DNA [...] alternative nucleic acid target. Specimen Description .URINE [facility] CBC auto differentialon 06-23 Absolute Eos # MERLY COELLO S [facility] Absolute Immature Granulocyte 0.12 [facility] Absolute Lymph # 1.21 MERLY SECO URS [facility] Absolute [place] # 0.69 [facility] RS [facility] Basophils (Bld) [#/Vol] 0.03 10*3/uL [facility] Basophils/100 WBC (Bld) 0 % 0 - 2 % [facility] Eosinophils/100 WBC (Bld) 0 % Low 1 - 4 % [facility] Hematocrit (Bld) [Volume fraction] 33.5 % Low 36.3 - 47.1 % [facility] Hemoglobin (Bld) [Mass/Vol] 10.8 g/dL Low 11.9 - 15.1 g/dL [facility] Immature granulocytes/100 WBC (Bld) 1 % High 0 [facility] Interpretation and review of laboratory results Abnormal [facility] Lymphocytes/100 WBC (Bld) 8 % Low 24 - 43 % [facility] MCH (RBC) [Entitic mass] 28.4 pg 25.2 - 33.5 pg [facility] MCHC (RBC) [Mass/Vol] 32.2 g/dL 28.4 - 34.8 g/dL [facility] MCV (RBC) [Entitic vol] 88.2 fL 82.6 - 102.9 fL [facility] Monocytes/100 WBC (Bld) 4 % 3 - 12 % [facility] NRBC Automated 0.0 0.0 per 100 WBC [facility] Platelet distribution width (Bld) [Ratio] 13.2 % 11.8 - 14.4 % [facility] Platelet mean volume (Bld) [Entitic vol] 10.5 fL 8.1 - 13.5 fL [facility] Platelets (Bld) [#/Vol] 197 10*3/uL [facility] RBC (Bld) [#/Vol] 3.80 10*6/uL Low 3.95 - 5.1 1 m/uL [facility] Segmented neutrophils/100 WBC (Bld) 87 % High 36 - 65 % [facility] Segs Absolute 13.58 High [facility] WBC (Bld) [#/Vol] 15.6 10*3/uL High [facility] Yung [facility] Culture, Urineon 07-21-2022 Microorganism identified Cx Nom (Unsp spec) NO SIGNIFICANT GROWTH [facility] Specimen Description .CLEAN CATCH URINE [facility] POC Glucose Fingerstickon Glucose [Mass/Vol] 108 mg/dL High 65 - 105 mg/dL [facility] Interpretation and review of laboratory results Abnormal [facility] Glucose [Mass/Vol] 95 mg/dL 65 - 105 mg/dL [facility] Glucose [Mass/Vol] 123 mg/dL High 65 - 105 mg/dL [facility] Interpretation and review of laboratory results Abnormal [facility] CBCon 07-20-2022 Hematocrit (Bld) [Volume fraction] 32.8 % Low 36.3 - 47.1 % [facility] Hemoglobin (Bld) [Mass/Vol] 11.0 g/dL Low 11.9 - 15.1 g/dL [facility] Interpretation and review of laboratory results Abnormal [facility] MCH (RBC) [Entitic mass] 28.6 pg 25.2 - 33.5 pg [facility] MCHC (RBC) [Mass/Vol] 33.5 g/dL 28.4 - 34.8 g/dL [facility] MCV (RBC) [Entitic vol] 85.4 fL 82.6 - 102.9 fL [facility] NRBC Automated 0.0 0.0 per 100 WBC [facility] Platelet distribution width (Bld) [Ratio] 13.2 % 11.8 - 14.4 % [facility] Platelet mean volume (Bld) [Entitic vol] 10.8 fL 8.1 - 13.5 fL [facility] Platelets (Bld) [#/Vol] 200 10*3/uL [facility] RBC (Bld) [#/Vol] 3.84 10*6/uL Low 3.95 - 5.1 1 m/uL [facility] WBC (Bld) [#/Vol] 10.2 10*3/uL [facility] Comprehensive Metabolic Pane mary 07-20-2022 Albumin [Mass/Vol] 3.3 g/dL Low 3.5 - 5.2 g/dL [facility] Albumin/Globulin [Mass ratio] 1.0 {ratio} 1.0 - 2.5 [facility] ALP [Catalytic activity/Vol] 142 U/L High 35 - 104 U/L [facility] ALT [Catalytic activity/Vol] 15 U/L 5 - 33 U/L [facility] Anion gap [Moles/Vol] 12 mmol/L 9 - 17 mmol/L [facility] AST [Catalytic activity/Vol] 15 U/L NINF - 32 U/L [facility] Bilirubin [Mass/Vol] mg/dL Low 0.3 - 1 .2 mg/dL [facility] Calcium [Mass/Vol] 9.0 mg/dL 8.6 - 10. 4 mg/dL [facility] Chloride [Moles/Vol] 104 mmol/L 98 - 10 7 mmol/L [facility] CO2 [Moles/Vol] 21 mmol/L 20 - 31 mmol/L [facility] Creatinine [Mass/Vol] 0.41 mg/dL Low 0.50 - 0.90 mg/dL [facility] GFR/1.73 sq M.predicted MDRD (S/P/Bld) [Vol rate/Area] - PINF [facility] Comment on above: These results are not [...] 135 mg/dL High 70 - 99 mg/dL [email or web address] Interpretation and review of laboratory results Abnormal [facility] Potassium [Moles/Vol] 3.8 mmol/L 3.7 - 5.3 mmol/L [facility] Protein [Mass/Vol] 6.5 g/dL 6.4 - 8.3 g/dL [facility] Sodium [Moles/Vol] 137 mmol/L 135 - 144 mmol/L [facility] Urea nitrogen [Mass/Vol] 8 mg/dL 6 - 20 mg/dL [facility] DRUG SCREEN MULTI URINEon Amphetamine Screen, Ur Negative NEGATIVE [facility] Comment on above: (Positive cutoff 1000 ng/mL) Barbiturate Screen, Ur Negative NEGATIVE [facility] Comment on above: (Positive cutoff 200 ng/mL) Benzodiazepine Screen, Urine Negative NEGATIVE [facility] Comment on above: (Positive cutoff 200 ng/mL) Cannabinoid Scrn, Ur Negative NEGATIVE [email or web address] Comment on above: (Positive cutoff 50 ng/mL) Cocaine Metabolite, Urine Negative NEGATIVE [email or web address] Comment on above: (Positive cutoff 300 ng/mL) Fentanyl, Ur Negative NEGATIVE [facility] Comment on above: (Positive cutoff 5 ng/ml) Methadone Screen, Urine Negative NEGATIVE [facility] Comment on above: (Positive cutoff 300 ng/mL) Opiates, Urine Negative NEGATIVE [facility] Comment on above: (Positive cutoff 300 ng/mL) Oxycodone Screen, Ur Negative NEGATIVE [facility] Comment on above: (Positive cutoff 100 ng/mL) Phencyclidine, Urine Negative NEGATIVE [facility] Comment on above: (Positive cutoff 25 ng/mL) Test Information Assay provides medic al screening only. The absence of expected drug(s) and/or metabolite(s) may indicate diluted or adulterated urine, limitations of testing or timing of collection. [facility] [employer] [facility] Comment on above: Testing for legal pu rposes should be confirmed by another method. To request confirmation of test result, please call the lab within 7 days of sample submission. [email or web address] GROUP B STREP CULTUREon 06-23 S. agalactiae Ag Ql (Unsp spec) Culture Observations: NEGATIVE FOR GROUP B STREPTOCOCCUS. Normal [facility] Comment on above: Performed By: #### [id number] #### [facility] [address] [place] [address] Dr. Valeria Farris POC Glucose Fingerstickon Glucose [Mass/Vol] 116 mg/dL High 65 - 105 mg/dL [facility] Interpretation and review of laboratory results Abnormal [facility] Protein / creatinine ratio, urineon 07-20-2022 Creatinine, Ur 95.9 mg/dL 28.0 - 217.0 mg/dL [facility] Protein (U) [Mass/Vol] 17 mg/dL [facility] Comment on above: No normal range esta blished. Urine Total Protein Creatinine Ratio 0.18 0.00 - 0.20 [facility] T. pallidum Abon 07-20-2022 T. pallidum Ab IA Ql (S) Non-Reactive NONREACTIVE [facility] Comment on above: T. pallidum antibodies are not detected. There is no serological evidence of infection with T. pallidum (early primary syphilis cannot be excluded). Retest in 2-4 weeks if syphilis is clinically suspect. [facility] TYPE AND SCREENon 07-20-2022 ABO/Rh Positive [facility] Arm Band Number [id number] [facility] Expiration Date 07/23/2022,2358 [facility] US CHINYERE DOP LEG LTon 07-20-19 23 [...] by: GERARD GONZALEZ Date: 2022-07-19 15:06 Normal [facility] COVID + FLU Quick Testingon 07-18-2022 SARS-CoV-2 (COVID-19) RNA SARANYA+probe Ql (Unsp spec) Negative [facility] Other COVID + FLU Quick Testing Negative [facility] Other Quick Strepon 07-18-2022 S. pyogenes Org specific cx Ql (Throat) Negative [facility] Other Quick Strep [employer] Other US PREG BIOPHY W NON STRESSo [...] by: GERARD GONZALEZ Date: 2022-07-17 15:56 Normal [facility] Brain Natriuretic Peptideon 07-15-2022 Natriuretic peptide B (Bld) [Mass/Vol] pg/mL [facility] - 300 pg/mL [facility] Comment on above: An age-independent cutoff point of 300 pg/ml has a 98% negative predictive value excluding acute heart failure. [facility] Comprehensive metabolic pane mary 07-15-2022 Albumin [Mass/Vol] 3.4 g/dL Low 3.5 - 5.2 g/dL [facility] Albumin/Globulin [Mass ratio] 1.0 {ratio} 1.0 - 2.5 [facility] ALP [Catalytic activity/Vol] 138 U/L High 35 - 104 U/L [facility] ALT [Catalytic activity/Vol] 16 U/L 5 - 33 U/L [facility] [employer] Anion gap [Moles/Vol] 12 mmol/L 9 - 17 mmol/L [facility] AST [Catalytic activity/Vol] 23 U/L NINF - 32 U/L [facility] [employer] Bilirubin [Mass/Vol] mg/dL Low 0.3 - 1 .2 mg/dL [facility] Calcium [Mass/Vol] 8.9 mg/dL 8.6 - 10. 4 mg/dL [facility] Chloride [Moles/Vol] 102 mmol/L 98 - 10 7 mmol/L [facility] CO2 [Moles/Vol] 19 mmol/L Low 20 - 31 mmol/L [facility] Creatinine [Mass/Vol] 0.38 mg/dL Low 0.50 - 0.90 mg/dL [facility] GFR/1.73 sq M.predicted MDRD (S/P/Bld) [Vol rate/Area] - PINF [facility] Comment on above: These results are not [...] 131 mg/dL High 70 - 99 mg/dL [facility] Interpretation and review of laboratory results Abnormal [facility] Potassium [Moles/Vol] 3.5 mmol/L Low 3.7 - 5.3 mmol/L [facility] Protein [Mass/Vol] 6.7 g/dL 6.4 - 8.3 g/dL [facility] Sodium [Moles/Vol] 133 mmol/L Low 135 - 144 mmol/L [facility] Urea nitrogen [Mass/Vol] 9 mg/dL 6 - 20 mg/dL [facility] HIV Screenon 07-15-2022 HIV 1+2 Ab+HIV1 p24 Ag IA Ql Non-Reactive NONREACTIVE [facility] Comment on above: No laboratory eviden ce of HIV infection. If acute HIV infection is suspected, consider testing for HIV-1 RNA. [facility] Protein / Creatinine Ratio, Urineon 07-15-2022 Creatinine, Ur 33.5 mg/dL 28.0 - 217.0 mg/dL [facility] Protein (U) [Mass/Vol] 5 mg/dL [facility] Comment on above: No normal range esta blished. Urine Total Protein Creatinine Ratio 0.15 0.00 - 0.20 [facility] TYPE AND SCREENon 07-15-2022 ABO/Rh Positive [facility] Arm Band Number BE [id number] [facility] Expiration Date 07/18/2022,2359 [facility] Troponinon 07-15-2022 Troponin I.cardiac DL <= 0.01 ng/mL [Mass/Vol] ng/L 0 - 14 ng/L [facility] Comment on above: High Sensitivity Tro ponin values cannot be compared with other Troponin methodologies. [facility] XR CHEST (SINGLE VIEW FRONTA L)on 07-15-2022 No acute process. [facility] EXAMINATION: ONE XRAY VIEW OF THE CHEST 07/15/2022 4:26 pm COMPARISON: None. HISTORY: ORDERING SYSTEM PROVIDED HISTORY: shortness of breath TECHNOLOGIST PROVIDED HISTORY: Concerns for COVID shortness of breath FINDINGS: The lungs are without acute focal process. There is no effusion or pneumothorax. The cardiomediastinal silhouette is without acute process. The osseous structures are without acute process. [facility] Abner Dela Cruz MD - [...] without acute process. IMPRESSION: No acute process. 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 Valeria Farris Clarity (U) CLEAR Normal CLEAR [facility] Comment on above: Performed By: #### [id number] #### [facility] [address] [address] [address] Valeria Farris Color (U) LT. YELLOW Normal YELLOW [facility] Comment on above: Performed By: #### [id number] #### [facility] [address] [address] [address] Valeria Farris Glucose Ql (U) Negative Normal NEGATIVE [facility] Comment on above: Performed By: #### [id number] #### [facility] [address] [place] [address] Dr. Valeria Farris Hemoglobin Ql (U) LARGE Abnormal NEGATIVE [facility] Comment on above: Performed By: #### [id number] #### [facility] [address] [place] [address] Dr. Valeria Farris Ketones Ql (U) Negative Normal NEGATIVE [facility] Comment on above: Performed By: #### [id number] #### [facility] [address] [place] [address] Dr. Valeria Farris LEUKOCYTES Negative Normal NEGATIVE [facility] Comment on above: Performed By: #### [id number] #### [facility] [address] [place] [address] Dr. Valeria Farris Nitrite Ql (U) Negative Normal NEGATIVE [facility] Comment on above: Performed By: #### [id number] #### [facility] [address] [place] [address] Dr. Valeria Farris pH (U) 6.5 [pH] Normal 5-9 [facility] Comment on above: Performed By: #### [id number] #### [facility] [address] [place] [address] Dr. Valeria Farris SPEC GRAVITY <=1.005 Abnormal 1.005-<=1.02 5 [facility] Comment on above: Performed By: #### [id number] #### [facility] [address] [place] [address] Dr. Valeria Farris UA PROTEIN Negative Normal NEGATIVE/ TRACE [facility] Comment on above: Performed By: #### [id number] #### [facility] [address] [place] [address] Dr. Valeria Farris UR MICRO IND INDICATED Normal [facility] Comment on above: Performed By: #### [id number] #### [facility] [address] [place] [address] Dr. Valeria Farris Urobilinogen Qn (U) 0.2 {Manolo'U}/dL Normal 0.2 - 1. 0 [facility] Comment on above: Performed By: #### [id number] #### [facility] [address] [place] [address] Dr. Valeria Farris URINE MICROSCOPIC ONLYon BACTERIA NONE SEEN Normal NONE SEEN [facility] Comment on above: Performed By: #### [id number] #### [facility] [address] [place] [address] Dr. Valeria Farris Bacteria identified Cx Nom (U) NOT INDICATED Normal [facility] Comment on above: Performed By: #### [id number] #### [facility] [address] [place] [address] Dr. Valeria Farris CAST NONE SEEN Normal NONE SEEN [facility] Comment on above: Performed By: #### [id number] #### [facility] [address] [place] [address] Dr. Valeria Farris Crystals LM Nom (Urine sed) NONE SEEN Normal NONE SEEN [facility] Comment on above: Performed By: #### [id number] #### [facility] [address] [place] [address] Dr. Valeria Farris Epithelial cells LM Ql (Urine sed) FEW Abnormal NONE SEEN /RARE [facility] Comment on above: Performed By: #### [id number] #### [facility] [address] [place] [address] Dr. Valeria Farris MUCOUS NONE SEEN Normal NONE SEEN [facility] Comment on above: Performed By: #### [id number] #### [facility] [address] [place] [address] Dr. Valeria Farris RBC 5-10 Abnormal 0-2 [facility] Comment on above: Performed By: #### [id number] #### [facility] [address] [place] [address] Dr. Valeria Farris WBC 0-2 Abnormal NONE SEEN [facility] Comment on above: Performed By: #### [id number] #### [facility] [address] [place] [address] Dr. Valeria Farris No Panel Informationon 06-29 [facility] T4, Freeon 06-29-2022 Free T4 [Mass/Vol] 0.82 ng/dL Low 0.93 - 1. 70 ng/dL [facility] Interpretation and review of laboratory results Abnormal [facility] TSHon 06-29-2022 TSH Qn 2.16 m[IU]/L [facility] US PREG BIOPHY W NON STRESSo n [...] by: ALINE GALICIA Date: 2022-06-26 07:50 Normal [facility] US [...] GERARD GONZALEZ Date: 2022-06-19 15:28 Normal [facility] CREATININE CLEARon 3 BODY SURF AREA 2.35 Normal [facility] Comment on above: Performed By: #### DAPHNE SUN #### [facility] [address] [address] [address] Valeria MAST CLEARANCE 128.94 ml/min Critically high 75.00-115.00 [facility] Comment on above: Performed By: #### DAPHNE SUN #### [facility] [address] [address] [address] Valeria Farris CREA, 24 HR UR 882.73 mg/24 hr Normal 800.00-1,8 00 .00 [facility] Comment on above: Performed By: #### U DAPHNE LANDEROS #### [facility] [address] [place] [address] Dr. Valeria Farris Creatinine [Mass/Vol] 0.35 mg/dL Critically low 0.55-1.02 [facility] Comment on above: Performed By: #### U DAPHNE LANDEROS #### [facility] [address] [place] [address] Dr. Valeria Farris URINE CREAT 21.53 mg/dL Normal 20.00-300.00 [facility] Comment on above: Performed By: #### U DAPHNE LANDEROS #### [facility] [address] [place] [address] Dr. Valeria Farris PROTEIN 24HR URINEon 023 T PROT, 24 HR UR 241.9 mg/24 hr Critically high <=149.1 [facility] Comment on above: Performed By: #### P [id number] #### [facility] [address] [place] [address] Dr. Valeria Farris UR PROT 5.9 mg/dL Normal <=11.9 [facility] Comment on above: Performed By: #### P [id number] #### [facility] [address] [place] [address] Dr. Valeria Farris UR TOT VOL 4100 ml/24 HR Normal [facility] Comment on above: Performed By: #### P [id number] #### [facility] [address] [place] [address] Dr. Valeria Farris Performed By: #### U DAPHNE LANDEROS #### [facility] [address] [place] [address] Dr. Valeria Farris CBC AUTO DIFFon 06-17-2022 BASO # 0.0 103/ul Normal 0.0-0.1 [facility] Comment on above: Performed By: #### G [id number] #### [facility] [address] [address] [address] Valeria Farris Basophils/100 WBC (Bld) 0.4 % Normal 0.2-2.0 [facility] Comment on above: Performed By: #### G LU1HR #### [facility] [address] [place] [address] Dr. Valeria Farris EO # 0.2 103/ul Normal 0.0-0.7 [facility] Comment on above: Performed By: #### G LU1HR #### [facility] [address] [place] [address] Dr. Valeria Farris Eosinophils/100 WBC (Bld) 2.0 % Normal 0.9-7.0 [facility] Comment on above: Performed By: #### G [id number] #### [facility] [address] [place] [address] Dr. Valeria Farris Erythrocyte distribution width (RBC) [Ratio] 13.3 % Normal 11.0-15.0 [facility] Comment on above: Performed By: #### G LU1HR #### [facility] [address] [place] [address] Dr. Valeria Farris Hematocrit (Bld) [Volume fraction] 31.8 % Critically low 36.0-48.0 [facility] Comment on above: Performed By: #### G LU1HR #### [facility] [address] [place] [address] Dr. Valeria Farris Hemoglobin (Bld) [Mass/Vol] 10.8 g/dL Critically low 12.0-16.0 [facility] Comment on above: Performed By: #### G LU1HR #### [facility] [address] [place] [address] Dr. Valeria Farris IG # 0.09 10e3/ul Critically high 0.00-0.03 [facility] Comment on above: Performed By: #### G LU1HR #### [facility] [address] [place] [address] Dr. Valeria Farris IG % 0.8 % Critically high 0.0-0.5 [facility] Comment on above: Performed By: #### G LU1HR #### [facility] [address] [address] [address] Valeria Farris LYMPH # 2.2 103/ul Normal 1.2-3.8 [facility] Comment on above: Performed By: #### G LU1HR #### [facility] [address] [address] [address] Valeria Farris Lymphocytes/100 WBC (Bld) 20.0 % Critically low 20.5-60.0 [facility] Comment on above: Performed By: #### G LU1HR #### [facility] [address] [address] [address] Valeria Farris MANUAL DIFF REQ NO Normal [facility] Comment on above: Performed By: #### G LU1HR #### [facility] [address] [place] [address] Dr. Valeria Farris MCH (RBC) [Entitic mass] 28.4 pg Normal 26.7-34.0 [facility] Comment on above: Performed By: #### G LU1HR #### [facility] [address] [place] [address] Dr. Valeria Farris MCHC (RBC) [Mass/Vol] 34.0 g/dL Normal 29.9-35.2 [facility] Comment on above: Performed By: #### G LU1HR #### [facility] [address] [place] [address] Dr. Valeria Farris MCV (RBC) [Entitic vol] 83.7 fL Normal 81.0-99.0 [facility] Comment on above: Performed By: #### G LU1HR #### [facility] [address] [address] [address] Valeria Farris MONO # 0.9 103/ul Critically high 0.3-0.8 [facility] Comment on above: Performed By: #### G LU1HR #### [facility] [address] [place] [address] Dr. Valeria Farris Monocytes/100 WBC (Bld) 7.9 % Normal 1.7-12.0 [facility] Comment on above: Performed By: #### G LU1HR #### [facility] [address] [address] [address] Valeria Farris NEUT # 7.7 103/ul Critically high 1.4-6.5 [facility] Comment on above: Performed By: #### G LU1HR #### [facility] [address] [place] [address] Dr. Valeria Farris Neutrophils/100 WBC (Bld) 68.9 % Normal 43.0-75.0 [facility] Comment on above: Performed By: #### G LU1HR #### [facility] [address] [place] [address] Dr. Valeria Farris Platelet mean volume (Bld) [Entitic vol] 10.7 fL Normal 9.5-13.5 [facility] Comment on above: Performed By: #### G LU1HR #### [facility] [address] [place] [address] Dr. Valeria Farris PLT 195 103/ul Normal 150-450 [facility] Comment on above: Performed By: #### G [id number] #### [facility] [address] [place] [address] Dr. Valeria Farris RBC 3.80 106/ul Critically low 4.20-5.40 [facility] Comment on above: Performed By: #### G [id number] #### [facility] [address] [place] [address] Dr. Valeria Farris WBC 11.2 103/ul Critically high 4.0-11.0 [facility] Comment on above: Performed By: #### G [id number] #### [facility] [address] [place] [address] Dr. Valeria Farris LDHon 06-17-2022 LDH 230 U/L Normal 81-234 [facility] Comment on above: Performed By: #### P [id number] #### [facility] [address] [place] [address] Dr. Valeria Farris PROF 14(COMP METB)on 023 Albumin [Mass/Vol] 2.6 g/dL Critically low 3.4-5.0 [facility] Comment on above: Performed By: #### P [id number] #### [facility] [address] [place] [address] Dr. Valeria Farris Albumin/Globulin [Mass ratio] 0.6 {ratio} Normal [facility] Comment on above: Performed By: #### P [id number] #### [facility] [address] [address] [address] Valeria Farris ALP [Catalytic activity/Vol] 112 U/L Normal 46-116 [facility] Comment on above: Performed By: #### P [id number] #### [facility] [address] [place] [address] Dr. Valeria Farris ALT [Catalytic activity/Vol] 18 U/L Normal 14-59 [facility] Comment on above: Performed By: #### P [id number] #### [facility] [address] [place] [address] Dr. Valeria Farris Anion gap [Moles/Vol] 13.1 mmol/L Normal [facility] Comment on above: Performed By: #### P [id number] #### [facility] [address] [place] [address] Dr. Valeria Farris AST [Catalytic activity/Vol] 22 U/L Normal 15-37 [facility] Comment on above: Performed By: #### P [id number] #### [facility] [address] [place] [address] Dr. Valeria Farris Bilirubin [Mass/Vol] 0.2 mg/dL Normal 0.2-1.0 [facility] Comment on above: Performed By: #### P [id number] #### [facility] [address] [place] [address] Dr. Valeria Farris Calcium [Mass/Vol] 9.1 mg/dL Normal 8.5-10.1 [facility] Comment on above: Performed By: #### P [id number] #### [facility] [address] [place] [address] Dr. Valeria Farris Chloride [Moles/Vol] 103 mmol/L Normal 98-107 [facility] Comment on above: Performed By: #### P [id number] #### [facility] [address] [address] [address] Valeria Farris CO2 [Moles/Vol] 25.8 mmol/L Normal 21.0-32.0 [facility] Comment on above: Performed By: #### P [id number] #### [facility] [address] [address] [address] Valeria Farris Creatinine [Mass/Vol] 0.35 mg/dL Critically low 0.55-1.02 [facility] Comment on above: Performed By: #### P [id number] #### [facility] [address] [place] [address] Dr. Valeria Farris EGFR-AF KITTITIAN >60 Normal >=60 [facility] Comment on above: Performed By: #### P [id number] #### [facility] [address] [place] [address] Dr. Valeria Farris EGFR-NON AF KITTITIAN >60 Normal >=60 [facility] Comment on above: Performed By: #### P [id number] #### [facility] [address] [address] [address] Valeria Farris Globulin (S) [Mass/Vol] 4.2 g/dL Normal [facility] Comment on above: Performed By: #### P [id number] #### [facility] [address] [address] [address] Valeria Farris Glucose [Mass/Vol] 80 mg/dL Normal 74-106 [facility] Comment on above: Performed By: #### P [id number] #### [facility] [address] [address] [address] Valeria Farris Potassium [Moles/Vol] 3.9 mmol/L Normal 3.5-5.1 [facility] Comment on above: Performed By: #### P [id number] #### [facility] [address] [address] [address] Valeria Farris Protein [Mass/Vol] 6.8 g/dL Normal 6.4-8.2 [facility] Comment on above: Performed By: #### P [id number] #### [facility] [address] [place] [address] Dr. Valeria Farris Sodium [Moles/Vol] 138 mmol/L Normal 136-145 [facility] Comment on above: Performed By: #### P [id number] #### [facility] [address] [place] [address] Dr. Valeria Farris Urea nitrogen [Mass/Vol] 10.0 mg/dL Normal 7.0-18.0 [facility] Comment on above: Performed By: #### P [id number] #### [facility] [address] [place] [address] Dr. Valeria Farris Urea nitrogen/Creatinine [Mass ratio] 28.6 mg/mg Normal [facility] Comment on above: Performed By: #### P [id number] #### [facility] [address] [place] [address] Dr. Valeria Farris PTTon 06-17-2022 aPTT Coag (Bld) [Time] 26.4 s Normal 22.3-36.2 [facility] Comment on above: Performed By: #### P REGQNT #### [facility] [address] [place] [address] Dr. Valeria Farris UA (CLEAN/CATCH) COLORING ROOM WORKER/MICRO I F IND.on 06-17-2022 Bilirubin Ql (U) Negative Normal NEGATIVE [facility] Comment on above: Performed By: #### P REGQNT #### [facility] [address] [place] [address] Dr. Valeria Farris Clarity (U) CLEAR Normal CLEAR [facility] Comment on above: Performed By: #### P REGQNT #### [facility] [address] [place] [address] Dr. Valeria Farris Color (U) LT. YELLOW Normal YELLOW [facility] Comment on above: Performed By: #### P REGQNT #### [facility] [address] [place] [address] Dr. Valeria Farris Glucose Ql (U) Negative Normal NEGATIVE [facility] Comment on above: Performed By: #### P REGQNT #### [facility] [address] [address] [address] Valeria Farris Hemoglobin Ql (U) Negative Normal NEGATIVE [facility] Comment on above: Performed By: #### P REGQNT #### [facility] [address] [place] [address] Dr. Valeria Farris Ketones Ql (U) Negative Normal NEGATIVE [facility] Comment on above: Performed By: #### P REGQNT #### [facility] [address] [address] [address] Valeria Farris LEUKOCYTES Negative Normal NEGATIVE [facility] Comment on above: Performed By: #### P REGQNT #### [facility] [address] [place] [address] Dr. Valeria Farris Nitrite Ql (U) Negative Normal NEGATIVE [facility] Comment on above: Performed By: #### P REGQNT #### [facility] [address] [place] [address] Dr. Valeria Farris pH (U) 6.5 [pH] Normal 5-9 [facility] Comment on above: Performed By: #### P REGQNT #### [facility] [address] [place] [address] Dr. Valeria Farris SPEC GRAVITY 1.010 Normal 1.005-<=1.02 5 [facility] Comment on above: Performed By: #### P REGQNT #### [facility] [address] [place] [address] Dr. Valeria Farris UA PROTEIN Negative Normal NEGATIVE/ TRACE [facility] Comment on above: Performed By: #### P REGQNT #### [facility] [address] [place] [address] Dr. Valeria Farris UR MICRO IND NOT INDICATED Normal [facility] Comment on above: Performed By: #### P REGQNT #### [facility] [address] [place] [address] Dr. Valeria Farris Urobilinogen Qn (U) 0.2 {Manolo'U}/dL Normal 0.2 - 1. 0 [facility] Comment on above: Performed By: #### P REGQNT #### [facility] [address] [address] [address] Valeria Farris URIC ACID SERUMon 06-17-2022 Urate [Mass/Vol] 3.3 mg/dL Normal 2.6-6.0 [facility] Comment on above: Performed By: #### P [id number] #### [facility] [address] [address] [address] Valeria Farris PAP ACOG PANEL 2: 30 to 65on 05-29-2022 . . Normal [facility] Comment on above: Result Comment: Perf ormed at: WB Performed By: #### [id number] #### [facility] [address] [place] [address] Dr. Valeria Farris Age Gdln ACOG Testing 30-65 Normal [facility] Comment on above: Performed By: #### 4 [id number] #### [facility] [address] [place] [address] Dr. Valeria Farris DIAGNOSIS: Comment Normal [facility] Comment on above: Result Comment: NEGA TIVE FOR INTRAEPITHELIAL LESION OR MALIGNANCY. Performed at: WB Performed By: #### [id number] #### [facility] [address] [place] [address] Dr. Valeria Farris HPV Aptima Negative Normal Negative [facility] Comment on above: Result Comment: This nucleic acid amplification test detects fourteen high-risk HPV types (16,18,31,33,35,39,45,51,52,56,58,59,66,68) without differentiation. Performed at: =G Performed By: #### [id number] #### [facility] [address] [place] [address] Dr. Valeria Farris HPV Genotype Reflex Comment Normal [facility] Comment on above: Result Comment: Crit eria not met, HPV Genotype not performed. Performed at: WB Performed By: #### [id number] #### [facility] [address] [place] [address] Dr. Valeria Farris Methodology: Comment Normal [facility] Comment on above: Result Comment: This liquid based ThinPrep(R) pap test was screened with the use of an image guided system. Performed at: WB Performed By: #### [id number] #### [facility] [address] [place] [address] Dr. Valeria Farris Note: Comment Normal [facility] Comment on above: Result Comment: The Pap smear is a screening test designed to aid in the detection of premalignant and malignant conditions of the uterine cervix. It is not a diagnostic procedure and should not be used as the sole means of detecting cervical cancer. Both false-positive and false-negative reports do occur. . Performed at: WB Performed By: #### [id number] #### [facility] [address] [place] [address] Dr. Valeria Farris Performed by: Comment Normal [facility] Comment on above: Result Comment: Jaye Simmons, [employer] (ASCP) Performed at: WB Performed By: #### [id number] #### [facility] [address] [place] [address] Dr. Valeria Farris Specimen adequacy: Comment Normal [facility] Comment on above: Result Comment: Sati sfactory for evaluation. Performed at: WB Performed By: #### [id number] #### [facility] [address] [place] [address] Dr. Valeria Farris POINT OF CARE GLUCOSEon Glucose [Mass/Vol] 122 mg/dL Critically high 74-106 T [facility] Comment on above: Performed By: #### U ACSIND UMICRO #### [facility] [address] [place] [address] Dr. Valeria Farris UA (CLEAN/CATCH) COLORING ROOM WORKER/MICRO I F IND.on 05-29-2022 Bilirubin Ql (U) Negative Normal NEGATIVE [facility] Comment on above: Performed By: #### U ACSIND, UMICRO #### [facility] [address] [place] [address] Dr. Valeria Farris Clarity (U) CLEAR Normal CLEAR [facility] Comment on above: Performed By: #### U ACSIND, UMICRO #### [facility] [address] [address] [address] Valeria Farris Color (U) LT. YELLOW Normal YELLOW [facility] Comment on above: Performed By: #### U ACSIND, UMICRO #### [facility] [address] [address] [address] Valeria Farris Glucose Ql (U) Negative Normal NEGATIVE [facility] Comment on above: Performed By: #### U ACSIND, UMICRO #### [facility] [address] [address] [address] Valeria Farris Hemoglobin Ql (U) TRACE-INTACT Abnormal NEGATIVE [facility] Comment on above: Performed By: #### U ACSIND, UMICRO #### [facility] [address] [place] [address] Dr. Valeria Farris Ketones Ql (U) Negative Normal NEGATIVE [facility] Comment on above: Performed By: #### U ACSTRUPTI, UMICRO #### [facility] [address] [place] [address] Dr. Valeria Farris LEUKOCYTES Negative Normal NEGATIVE [facility] Comment on above: Performed By: #### U ACSTRUPTI, UMICRO #### [facility] [address] [place] [address] Dr. Valeria Farris Nitrite Ql (U) Negative Normal NEGATIVE [facility] Comment on above: Performed By: #### U ACSTRUPTI UMICRO #### [facility] [address] [place] [address] Dr. Valeria Farris pH (U) 5.5 [pH] Normal 5-9 [facility] Comment on above: Performed By: #### U ACSTRUPTI, UMICRO #### [facility] [address] [place] [address] Dr. Valeria Farris SPEC GRAVITY 1.010 Normal 1.005-<=1.02 5 [facility] Comment on above: Performed By: #### U ACSTRUPTI, UMICRO #### [facility] [address] [place] [address] Dr. Valeria Farris UA PROTEIN Negative Normal NEGATIVE/ TRACE [facility] Comment on above: Performed By: #### U ACSIND, UMICRO #### [facility] [address] [place] [address] Dr. Valeria Farris UR MICRO IND INDICATED Normal [facility] Comment on above: Performed By: #### U ACSIND, UMICRO #### [facility] [address] [place] [address] Dr. Valeria Farris Urobilinogen Qn (U) 0.2 {Manolo'U}/dL Normal 0.2 - 1. 0 [facility] Comment on above: Performed By: #### U ACSIND, UMICRO #### [facility] [address] [place] [address] Dr. Valeria Farris URINE MICROSCOPIC ONLYon BACTERIA NONE SEEN Normal NONE SEEN [facility] Comment on above: Performed By: #### U ACSIND, UMICRO #### [facility] [address] [place] [address] Dr. Valeria Farris Bacteria identified Cx Nom (U) NOT INDICATED Normal [facility] Comment on above: Performed By: #### U ACSIND, UMICRO #### [facility] [address] [place] [address] Dr. Valeria Farris CAST NONE SEEN Normal NONE SEEN [facility] Comment on above: Performed By: #### U ACSIND, UMICRO #### [facility] [address] [place] [address] Dr. Valeria Farris Crystals LM Nom (Urine sed) NONE SEEN Normal NONE SEEN [facility] Comment on above: Performed By: #### U ACSIND, UMICRO #### [facility] [address] [place] [address] Dr. Valeria Farris Epithelial cells LM Ql (Urine sed) FEW Abnormal NONE SEEN /RARE [facility] Comment on above: Performed By: #### U ACSIND, UMICRO #### [facility] [address] [place] [address] Dr. Valeria Farris MUCOUS NONE SEEN Normal NONE SEEN [facility] Comment on above: Performed By: #### U ACSTRUPTI, UMICRO #### [facility] [address] [place] [address] Dr. Valeria Farris RBC 0-2 Normal 0-2 [facility] Comment on above: Performed By: #### U ACSTRUPTI, UMICRO #### [facility] [address] [place] [address] Dr. Valeria Farris WBC NONE SEEN Normal NONE SEEN [facility] Comment on above: Performed By: #### U ACSTRUPTI, ICRO #### [facility] [address] [place] [address] Dr. Valeria Farris CHLAMYDIA/GONOCOCCUS SARANYA ( AB/URINE/PAPon 05-26-2022 Chlamydia trachomatis, SARANYA Negative Normal Negative [facility] Comment on above: Performed By: #### [id number] #### [facility] [address] [place] [address] Dr. Valeria Farris Neisseria gonorrhoeae, SARANYA Negative Normal Negative [facility] Comment on above: Performed By: #### 4 [id number] #### [facility] [address] [place] [address] Dr. Valeria Farris AMYLASEon 05-25-2022 Amylase [Catalytic activity/Vol] 30 U/L Normal 25-115 [facility] Comment on above: Performed By: #### P [id number] #### [facility] [address] [place] [address] Dr. Valeria Farris CARDIAC VERNON 3-6on 3 CK [Catalytic activity/Vol] 119 U/L Normal 26-192 [facility] Comment on above: Performed By: #### P [id number] #### [facility] [address] [place] [address] Dr. Valeria Fraris CK.MB [Mass/Vol] ng/mL Normal <=3.60 [facility] Comment on above: Performed By: #### P [id number] #### [facility] [address] [place] [address] Dr. Valeria Farris HSTROP <4.0 Normal 4.0-51.3 [facility] Comment on above: Result Comment: CUT- OFF POINTS HAVE BEEN ESTABLISHED BASED ON THE FOURTH UNIVERSAL DEFINITIONS OF MYOCARDIAL INFARCTION. THE UPPER REFERENCE LIMIT (URL) OF TROPONIN, DEFINED THE 99TH PERCENTILE OF cTnI DISTRIBUTION IN A REFERENCE POPULATION, HAS BEEN CONFIRMED THE DECISION THRESHOLD FOR IN DIAGNOSIS. Performed By: #### P [id number] #### [facility] [address] [place] [address] Dr. Valeria Farris CARDIAC VERNON ADMITon 023 CK [Catalytic activity/Vol] 121 U/L Normal 26-192 [facility] Comment on above: Performed By: #### P [id number] #### [facility] [address] [place] [address] Dr. Valeria Farris CK.MB [Mass/Vol] 0.51 ng/mL Normal <=3.60 [facility] Comment on above: Performed By: #### P [id number] #### [facility] [address] [place] [address] Dr. Valeria Farris HSTROP 4.1 pg/mL Normal 4.0-51.3 [facility] Comment on above: Result Comment: CUT- OFF POINTS HAVE BEEN ESTABLISHED BASED ON THE FOURTH UNIVERSAL DEFINITIONS OF MYOCARDIAL INFARCTION. THE UPPER REFERENCE LIMIT (URL) OF TROPONIN, DEFINED THE 99TH PERCENTILE OF cTnI DISTRIBUTION IN A REFERENCE POPULATION, HAS BEEN CONFIRMED THE DECISION THRESHOLD FOR IN DIAGNOSIS. Performed By: #### P [id number] #### [facility] [address] [place] [address] Dr. Valeria Farris MINI 19 ng/mL Normal 9-82 [facility] Comment on above: Performed By: #### P [id number] #### [facility] [address] [place] [address] Dr. Valeria Farris CBC AUTO DIFFon 05-25-2022 BASO # 0.0 103/ul Normal 0.0-0.1 [facility] Comment on above: Performed By: #### [id number] #### [facility] [address] [place] [address] Dr. Valeria Farris Basophils/100 WBC (Bld) 0.2 % Normal 0.2-2.0 [facility] Comment on above: Performed By: #### 4 [id number] #### [facility] [address] [place] [address] Dr. Valeria Farris EO # 0.1 103/ul Normal 0.0-0.7 [facility] Comment on above: Performed By: #### 4 [id number] #### [facility] [address] [place] [address] Dr. Valeria Farris Eosinophils/100 WBC (Bld) 0.8 % Critically low 0.9-7.0 [facility] Comment on above: Performed By: #### 4 [id number] #### [facility] [address] [place] [address] Dr. Valeria Farris Erythrocyte distribution width (RBC) [Ratio] 13.5 % Normal 11.0-15.0 [facility] Comment on above: Performed By: #### 4 [id number] #### [facility] [address] [place] [address] Dr. Valeria Farris Hematocrit (Bld) [Volume fraction] 30.4 % Critically low 36.0-48.0 [facility] Comment on above: Performed By: #### [id number] #### [facility] [address] [place] [address] Dr. Valeria Farris Hemoglobin (Bld) [Mass/Vol] 9.8 g/dL Critically low 12.0-16.0 [facility] Comment on above: Performed By: #### 4 [id number] #### [facility] [address] [place] [address] Dr. Valeria Farris IG # 0.21 10e3/ul Critically high 0.00-0.03 [facility] Comment on above: Performed By: #### 4 [id number] #### [facility] [address] [place] [address] Dr. Valeria Farris IG % 1.6 % Critically high 0.0-0.5 [facility] Comment on above: Performed By: #### 4 [id number] #### [facility] [address] [place] [address] Dr. Valeria Farris LYMPH # 2.8 103/ul Normal 1.2-3.8 [facility] Comment on above: Performed By: #### [id number] #### [facility] [address] [place] [address] Dr. Valeria Farris Lymphocytes/100 WBC (Bld) 21.3 % Normal 20.5-60.0 [facility] Comment on above: Performed By: #### [id number] #### [facility] [address] [place] [address] Dr. Valeria Farris MANUAL DIFF REQ NO Normal [facility] Comment on above: Performed By: #### [id number] #### [facility] [address] [place] [address] Dr. Valeria Farris MCH (RBC) [Entitic mass] 28.2 pg Normal 26.7-34.0 [facility] Comment on above: Performed By: #### 4 [id number] #### [facility] [address] [place] [address] Dr. Valeria Farris MCHC (RBC) [Mass/Vol] 32.2 g/dL Normal 29.9-35.2 [facility] Comment on above: Performed By: #### [id number] #### [facility] [address] [place] [address] Dr. Valeria Farris MCV (RBC) [Entitic vol] 87.6 fL Normal 81.0-99.0 [facility] Comment on above: Performed By: #### 4 [id number] #### [facility] [address] [place] [address] Dr. Valeria Farris MONO # 0.9 103/ul Critically high 0.3-0.8 [facility] Comment on above: Performed By: #### [id number] #### [facility] [address] [place] [address] Dr. Valeria Farris Monocytes/100 WBC (Bld) 6.8 % Normal 1.7-12.0 [facility] Comment on above: Performed By: #### 4 [id number] #### [facility] [address] [place] [address] Dr. Valeria Farris NEUT # 9.0 103/ul Critically high 1.4-6.5 [facility] Comment on above: Performed By: #### 4 [id number] #### [facility] [address] [place] [address] Dr. Valeria Farris Neutrophils/100 WBC (Bld) 69.3 % Normal 43.0-75.0 [facility] Comment on above: Performed By: #### 4 [id number] #### [facility] [address] [place] [address] Dr. Valeria Farris Platelet mean volume (Bld) [Entitic vol] 10.5 fL Normal 9.5-13.5 [facility] Comment on above: Performed By: #### [id number] #### [facility] [address] [place] [address] Dr. Valeria Farris PLT 187 103/ul Normal 150-450 [facility] Comment on above: Performed By: #### [id number] #### [facility] [address] [place] [address] Dr. Valeria Farris RBC 3.47 106/ul Critically low 4.20-5.40 [facility] Comment on above: Performed By: #### [id number] #### [facility] [address] [place] [address] Dr. Valeria Farris WBC 13.0 103/ul Critically high 4.0-11.0 [facility] Comment on above: Performed By: #### [id number] #### [facility] [address] [place] [address] Dr. Valeria Farris CTA CHEST WO W [...] by: Daryl LOPEZ Date: 2022-05-25 01:55 Normal [facility] CULTURE URINEon 05-25-2022 CULTURE URINE Culture Observations : HEAVY GROWTH OF MIXED GENITAL RIO. NO POTENTIAL PATHOGENS SEEN. Normal [facility] Comment on above: Performed By: #### [id number] #### [facility] [address] [place] [address] Dr. Valeria Farris LIPASEon 05-25-2022 Lipase [Catalytic activity/Vol] 54.0 U/L Critically low 73.0-393.0 [facility] Comment on above: Performed By: #### P [id number] #### [facility] [address] [place] [address] Dr. Valeria Farris PROF 14(COMP METB)on 023 Albumin [Mass/Vol] 2.5 g/dL Critically low 3.4-5.0 [facility] Comment on above: Performed By: #### P [id number] #### [facility] [address] [place] [address] Dr. Valeria Farris Albumin/Globulin [Mass ratio] 0.6 {ratio} Normal [facility] Comment on above: Performed By: #### P [id number] #### [facility] [address] [place] [address] Dr. Valeria Farris ALP [Catalytic activity/Vol] 97 U/L Normal 46-116 [facility] Comment on above: Performed By: #### P [id number] #### [facility] [address] [address] [address] Valeria Farris ALT [Catalytic activity/Vol] 25 U/L Normal 14-59 [facility] Comment on above: Performed By: #### P [id number] #### [facility] [address] [address] [address] Valeria Farris Anion gap [Moles/Vol] 14.2 mmol/L Normal [facility] Comment on above: Performed By: #### P [id number] #### [facility] [address] [address] [address] Valeria Farris AST [Catalytic activity/Vol] 12 U/L Critically low 15-37 [facility] Comment on above: Performed By: #### P [id number] #### [facility] [address] [address] [address] Valeria Farris Bilirubin [Mass/Vol] 0.2 mg/dL Normal 0.2-1.0 [facility] Comment on above: Performed By: #### P [id number] #### [facility] [address] [address] [address] Valeria Farris Calcium [Mass/Vol] 8.5 mg/dL Normal 8.5-10.1 [facility] Comment on above: Performed By: #### P [id number] #### [facility] [address] [address] [address] Valeria Farris Chloride [Moles/Vol] 103 mmol/L Normal 98-107 [facility] Comment on above: Performed By: #### P [id number] #### [facility] [address] [address] [address] Valeria Farris CO2 [Moles/Vol] 23.0 mmol/L Normal 21.0-32.0 [facility] Comment on above: Performed By: #### P [id number] #### [facility] [address] [address] [address] Valeria Farris Creatinine [Mass/Vol] 0.39 mg/dL Critically low 0.55-1.02 [facility] Comment on above: Performed By: #### P [id number] #### [facility] [address] [address] [address] Valeria Farris EGFR-AF KITTITIAN >60 Normal >=60 [facility] Comment on above: Performed By: #### P [id number] #### [facility] [address] [address] [address] Valeria Farris EGFR-NON AF KITTITIAN >60 Normal >=60 [facility] Comment on above: Performed By: #### P ROT24U #### [facility] [address] [address] [address] Valeria Farris Globulin (S) [Mass/Vol] 4.0 g/dL Normal [facility] Comment on above: Performed By: #### P ROT24U #### [facility] [address] [address] [address] Valeria Farris Glucose [Mass/Vol] 113 mg/dL Critically high 74-106 [facility] Comment on above: Performed By: #### P ROT24U #### [facility] [address] [address] [address] Valeria Farris Potassium [Moles/Vol] 3.2 mmol/L Critically low 3.5-5.1 [facility] Comment on above: Performed By: #### P [id number] #### [facility] [address] [place] [address] Dr. Valeria Farris Protein [Mass/Vol] 6.5 g/dL Normal 6.4-8.2 [facility] Comment on above: Performed By: #### P ROT24U #### [facility] [address] [address] [address] Valeria Farris Sodium [Moles/Vol] 137 mmol/L Normal 136-145 [facility] Comment on above: Performed By: #### P [id number] #### [facility] [address] [address] [address] Valeria Farris Urea nitrogen [Mass/Vol] 8.0 mg/dL Normal 7.0-18.0 [facility] Comment on above: Performed By: #### P [id number] #### [facility] [address] [place] [address] Dr. Valeria Farris Urea nitrogen/Creatinine [Mass ratio] 20.5 mg/mg Normal [facility] Comment on above: Performed By: #### P ROT24U #### [facility] [address] [place] [address] Dr. Valeria Farris UA (CLEAN/CATCH) COLORING ROOM WORKER/MICRO I F IND.on 05-25-2022 Bilirubin Ql (U) Negative Normal NEGATIVE [facility] Comment on above: Performed By: #### G LU1HR #### [facility] [address] [place] [address] Dr. Valeria Farris Clarity (U) CLEAR Normal CLEAR [facility] Comment on above: Performed By: #### G LU1HR #### [facility] [address] [place] [address] Dr. Valeria Farris Color (U) YELLOW Normal YELLOW [facility] Comment on above: Performed By: #### G LU1HR #### [facility] [address] [place] [address] Dr. Valeria Farris Glucose Ql (U) Negative Normal NEGATIVE [facility] Comment on above: Performed By: #### G LU1HR #### [facility] [address] [place] [address] Dr. Valeria Farris Hemoglobin Ql (U) TRACE-INTACT Abnormal NEGATIVE [facility] Comment on above: Performed By: #### G LU1HR #### [facility] [address] [place] [address] Dr. Valeria Farris Ketones Ql (U) TRACE Abnormal NEGATIVE [facility] Comment on above: Performed By: #### G LU1HR #### [facility] [address] [place] [address] Dr. Valeria Farris LEUKOCYTES Negative Normal NEGATIVE [facility] Comment on above: Performed By: #### G LU1HR #### [facility] [address] [place] [address] Dr. Valeria Farris Nitrite Ql (U) Negative Normal NEGATIVE [facility] Comment on above: Performed By: #### G LU1HR #### [facility] [address] [place] [address] Dr. Valeria Farris pH (U) 6.0 [pH] Normal 5-9 [facility] Comment on above: Performed By: #### G LU1HR #### [facility] [address] [place] [address] Dr. Valeria Farris SPEC GRAVITY >=1.030 Abnormal 1.005-<=1.02 5 [facility] Comment on above: Performed By: #### G LU1HR #### [facility] [address] [place] [address] Dr. Valeria Farris UA PROTEIN Negative Normal NEGATIVE/ TRACE [facility] Comment on above: Performed By: #### G LU1HR #### [facility] [address] [place] [address] Dr. Valeria Farris UR MICRO IND INDICATED Normal [facility] Comment on above: Performed By: #### G LU1HR #### [facility] [address] [place] [address] Dr. Valeria Farris Urobilinogen Qn (U) 0.2 {Manolo'U}/dL Normal 0.2 - 1. 0 [facility] Comment on above: Performed By: #### G LU1HR #### [facility] [address] [place] [address] Dr. Valeria Farris URINE MICROSCOPIC ONLYon BACTERIA SMALL Abnormal NONE SEEN [facility] Comment on above: Performed By: #### G LU1HR #### [facility] [address] [place] [address] Dr. Valeria Farris Bacteria identified Cx Nom (U) INDICATED Normal [facility] Comment on above: Performed By: #### G LU1HR #### [facility] [address] [place] [address] Dr. Valeria Farris CA OX CRYSTALS FEW Normal [facility] Comment on above: Performed By: #### G LU1HR #### [facility] [address] [place] [address] Dr. Valeria Farris CAST NONE SEEN Normal NONE SEEN [facility] Comment on above: Performed By: #### G LU1HR #### [facility] [address] [place] [address] Dr. Valeria Farris Crystals LM Nom (Urine sed) SEEN Abnormal NONE SEEN [facility] Comment on above: Performed By: #### G LU1HR #### [facility] [address] [place] [address] Dr. Valeria Farris Epithelial cells LM Ql (Urine sed) MANY Abnormal NONE SEEN /RARE [facility] Comment on above: Performed By: #### G LU1HR #### [facility] [address] [place] [address] Dr. Valeria Farris MUCOUS TRACE Abnormal NONE SEEN [facility] Comment on above: Performed By: #### G LU1HR #### [facility] [address] [place] [address] Dr. Valeria Farris RBC 2-5 Abnormal 0-2 [facility] Comment on above: Performed By: #### G LU1HR #### [facility] [address] [place] [address] Dr. Valeria Farris WBC NONE SEEN Normal NONE SEEN [facility] Comment on above: Performed By: #### G LU1HR #### [facility] [address] [place] [address] Dr. Valeria Farris VAGINITIS/VAGINOSIS DNA PROB Sam 05-25-2022 Litzy species Negative Normal Negative The [facility] Comment on above: Performed By: #### P REGQNT #### [facility] [address] [place] [address] Dr. Valeria Farris Gardnerella vaginalis Positive Abnormal Negative [facility] Comment on above: Performed By: #### P REGQNT #### [facility] [address] [place] [address] Dr. Valeria Farris Trichomonas vaginalis Negative Normal Negative [facility] Comment on above: Performed By: #### P REGQNT #### [facility] [address] [place] [address] Dr. Valeria Farris UA (CLEAN/CATCH) COLORING ROOM WORKER/MICRO I F IND.on 05-04-2022 Bilirubin Ql (U) Negative Normal NEGATIVE [facility] Comment on above: Performed By: #### P REGQNT #### [facility] [address] [place] [address] Dr. Valeria Farris Clarity (U) CLEAR Normal CLEAR [facility] Comment on above: Performed By: #### P REGQNT #### [facility] [address] [place] [address] Dr. Valeria Farris Color (U) LT. YELLOW Normal YELLOW [facility] Comment on above: Performed By: #### P REGQNT #### [facility] [address] [place] [address] Dr. Valeria Farris Glucose Ql (U) Negative Normal NEGATIVE [facility] Comment on above: Performed By: #### P REGQNT #### [facility] [address] [place] [address] Dr. Valeria Farris Hemoglobin Ql (U) SMALL Abnormal NEGATIVE [facility] Comment on above: Performed By: #### P REGQNT #### [facility] [address] [place] [address] Dr. Valeria Farris Ketones Ql (U) TRACE Abnormal NEGATIVE [facility] Comment on above: Performed By: #### P REGQNT #### [facility] [address] [place] [address] Dr. Valeria Farris LEUKOCYTES Negative Normal NEGATIVE [facility] Comment on above: Performed By: #### P REGQNT #### [facility] [address] [place] [address] Dr. Valeria Farris Nitrite Ql (U) Negative Normal NEGATIVE [facility] Comment on above: Performed By: #### P REGQNT #### [facility] [address] [place] [address] Dr. Valeria Farris pH (U) 6.5 [pH] Normal 5-9 [facility] Comment on above: Performed By: #### P REGQNT #### [facility] [address] [place] [address] Dr. Valeria Farris SPEC GRAVITY 1.025 Normal 1.005-<=1.02 5 [facility] Comment on above: Performed By: #### P REGQNT #### [facility] [address] [place] [address] Dr. Valeria Farris UA PROTEIN Negative Normal NEGATIVE/ TRACE [facility] Comment on above: Performed By: #### P REGQNT #### [facility] [address] [place] [address] Dr. Valeria Farris UR MICRO IND INDICATED Normal [facility] Comment on above: Performed By: #### P REGQNT #### [facility] [address] [place] [address] Dr. Valeria Farris Urobilinogen Qn (U) 0.2 {Manolo'U}/dL Normal 0.2 - 1. 0 [facility] Comment on above: Performed By: #### P REGQNT #### [facility] [address] [place] [address] Dr. Valeria Farris URINE MICROSCOPIC ONLYon BACTERIA NONE SEEN Normal NONE SEEN [facility] Comment on above: Performed By: #### U ACSIND, UMICRO #### [facility] [address] [place] [address] Dr. Valeria Farris Bacteria identified Cx Nom (U) NOT INDICATED Normal [facility] Comment on above: Performed By: #### U ACSIND, UMICRO #### [facility] [address] [place] [address] Dr. Valeria Farris CAST NONE SEEN Normal NONE SEEN [facility] Comment on above: Performed By: #### U ACSIND, UMICRO #### [facility] [address] [place] [address] Dr. Valeria Farris Crystals LM Nom (Urine sed) NONE SEEN Normal NONE SEEN [facility] Comment on above: Performed By: #### U ACSIND, UMICRO #### [facility] [address] [place] [address] Dr. Valeria Farris Epithelial cells LM Ql (Urine sed) FEW Abnormal NONE SEEN /RARE [facility] Comment on above: Performed By: #### U ACSIND, UMICRO #### [facility] [address] [place] [address] Dr. Valeria Farris MUCOUS TRACE Abnormal NONE SEEN [facility] Comment on above: Performed By: #### U ACSTRUPTI UMICRO #### [facility] [address] [place] [address] Dr. Valeria Farris RBC 0-2 Normal 0-2 [facility] Comment on above: Performed By: #### U ACSTRUPTI ICRO #### [facility] [address] [place] [address] Dr. Valeria Farris WBC NONE SEEN Normal NONE SEEN [facility] Comment on above: Performed By: #### [facility] #### [facility] [address] [place] [address] Dr. Valeria Farris AMYLASEon 04-12-2022 Amylase [Catalytic activity/Vol] 31 U/L Normal 25-115 [facility] Comment on above: Performed By: #### G LU1HR #### [facility] [address] [place] [address] Dr. Valeria Farris BUNon 04-12-2022 Urea nitrogen [Mass/Vol] 7.0 mg/dL Normal 7.0-18.0 [facility] Comment on above: Performed By: #### G LU1HR #### [facility] [address] [place] [address] Dr. Valeria Farris CBC AUTO DIFFon 04-12-2022 BASO # 0.0 103/ul Normal 0.0-0.1 [facility] Comment on above: Performed By: #### P REGQNT #### [facility] [address] [place] [address] Dr. Valeria Farris Basophils/100 WBC (Bld) 0.3 % Normal 0.2-2.0 [facility] Comment on above: Performed By: #### P REGQNT #### [facility] [address] [place] [address] Dr. Valeria Farris EO # 0.3 103/ul Normal 0.0-0.7 [facility] Comment on above: Performed By: #### P REGQNT #### [facility] [address] [address] [address] Valeria Farris Eosinophils/100 WBC (Bld) 2.3 % Normal 0.9-7.0 [facility] Comment on above: Performed By: #### P REGQNT #### [facility] [address] [place] [address] Dr. Valeria Farris Erythrocyte distribution width (RBC) [Ratio] 12.8 % Normal 11.0-15.0 [facility] Comment on above: Performed By: #### P REGQNT #### [facility] [address] [place] [address] Dr. Valeria Farris Hematocrit (Bld) [Volume fraction] 34.9 % Critically low 36.0-48.0 [facility] Comment on above: Performed By: #### P REGQNT #### [facility] [address] [place] [address] Dr. Valeria Farris Hemoglobin (Bld) [Mass/Vol] 11.8 g/dL Critically low 12.0-16.0 [facility] Comment on above: Performed By: #### P REGQNT #### [facility] [address] [place] [address] Dr. Valeria Farris IG # 0.08 10e3/ul Critically high 0.00-0.03 [facility] Comment on above: Performed By: #### P REGQNT #### [facility] [address] [place] [address] Dr. Valeria Farris IG % 0.7 % Critically high 0.0-0.5 [facility] Comment on above: Performed By: #### P REGQNT #### [facility] [address] [place] [address] Dr. Valeria Farris LYMPH # 2.6 103/ul Normal 1.2-3.8 [facility] Comment on above: Performed By: #### P REGQNT #### [facility] [address] [place] [address] Dr. Valeria Farris Lymphocytes/100 WBC (Bld) 22.4 % Normal 20.5-60.0 [facility] Comment on above: Performed By: #### P REGQNT #### [facility] [address] [place] [address] Dr. Valeria Farris MANUAL DIFF REQ NO Normal [facility] Comment on above: Performed By: #### P REGQNT #### [facility] [address] [place] [address] Dr. Valeria Farris MCH (RBC) [Entitic mass] 28.5 pg Normal 26.7-34.0 [facility] Comment on above: Performed By: #### P REGQNT #### [facility] [address] [place] [address] Dr. Valeria Farris MCHC (RBC) [Mass/Vol] 33.8 g/dL Normal 29.9-35.2 [facility] Comment on above: Performed By: #### P REGQNT #### [facility] [address] [place] [address] Dr. Valeria Farris MCV (RBC) [Entitic vol] 84.3 fL Normal 81.0-99.0 [facility] Comment on above: Performed By: #### P REGQNT #### [facility] [address] [place] [address] Dr. Valeria Farris MONO # 0.8 103/ul Normal 0.3-0.8 [facility] Comment on above: Performed By: #### P REGQNT #### [facility] [address] [place] [address] Dr. Valeria Farris Monocytes/100 WBC (Bld) 6.8 % Normal 1.7-12.0 [facility] Comment on above: Performed By: #### P REGQNT #### [facility] [address] [place] [address] Dr. Valeria Farris NEUT # 7.8 103/ul Critically high 1.4-6.5 The [facility] Comment on above: Performed By: #### P REGQNT #### [facility] [address] [place] [address] Dr. Valeria Farris Neutrophils/100 WBC (Bld) 67.5 % Normal 43.0-75.0 [facility] Comment on above: Performed By: #### P REGQNT #### [facility] [address] [place] [address] Dr. Valeria Farris Platelet mean volume (Bld) [Entitic vol] 10.3 fL Normal 9.5-13.5 [facility] Comment on above: Performed By: #### P REGQNT #### [facility] [address] [place] [address] Dr. Valeria Farris PLT 195 103/ul Normal 150-450 [facility] Comment on above: Performed By: #### P REGQNT #### [facility] [address] [place] [address] Dr. Valeria Farris RBC 4.14 106/ul Critically low 4.20-5.40 The [facility] Comment on above: Performed By: #### P REGQNT #### [facility] [address] [place] [address] Dr. Valeria Farris WBC 11.5 103/ul Critically high 4.0-11.0 [facility] Comment on above: Performed By: #### P REGQNT #### [facility] [address] [place] [address] Dr. Valeria Farris CREATININEon 04-12-2022 Creatinine [Mass/Vol] 0.44 mg/dL Critically low 0.55-1.02 [facility] Comment on above: Performed By: #### G LU1HR #### [facility] [address] [place] [address] Dr. Valeria Farris EGFR-AF KITTITIAN >60 Normal >=60 [facility] Comment on above: Performed By: #### G LU1HR #### [facility] [address] [place] [address] Dr. Valeria Farris EGFR-NON AF KITTITIAN >60 Normal >=60 [facility] Comment on above: Performed By: #### G LU1HR #### [facility] [address] [place] [address] Dr. Valeria Farris LIPASEon 04-12-2022 Lipase [Catalytic activity/Vol] 62.0 U/L Critically low 73.0-393.0 [facility] Comment on above: Performed By: #### G LU1HR #### [facility] [address] [place] [address] Dr. Valeria Farris LIVER PROFILEon 04-12-2022 Albumin [Mass/Vol] 2.9 g/dL Critically low 3.4-5.0 [facility] Comment on above: Performed By: #### G LU1HR #### [facility] [address] [place] [address] Dr. Valeria Farris Albumin/Globulin [Mass ratio] 0.7 {ratio} Normal [facility] Comment on above: Performed By: #### G LU1HR #### [facility] [address] [place] [address] Dr. Valeria Farris ALP [Catalytic activity/Vol] 86 U/L Normal 46-116 [facility] Comment on above: Performed By: #### G LU1HR #### [facility] [address] [place] [address] Dr. Valeria Farris ALT [Catalytic activity/Vol] 14 U/L Normal 14-59 [facility] Comment on above: Performed By: #### G LU1HR #### [facility] [address] [place] [address] Dr. Valeria Farris AST [Catalytic activity/Vol] 12 U/L Critically low 15-37 [facility] Comment on above: Performed By: #### G LU1HR #### [facility] [address] [place] [address] Dr. Valeria Farris BILI, CONJUGATED 0.1 mg/dL Normal 0.0-0.2 [facility] Comment on above: Performed By: #### G LU1HR #### [facility] [address] [place] [address] Dr. Valeria Farris Bilirubin [Mass/Vol] 0.2 mg/dL Normal 0.2-1.0 [facility] Comment on above: Performed By: #### G LU1HR #### [facility] [address] [place] [address] Dr. Valeria Farris Globulin (S) [Mass/Vol] 4.2 g/dL Normal [facility] Comment on above: Performed By: #### G LU1HR #### [facility] [address] [address] [address] Valeria Farris Protein [Mass/Vol] 7.1 g/dL Normal 6.4-8.2 [facility] Comment on above: Performed By: #### G LU1HR #### [facility] [address] [place] [address] Dr. Valeria Farris PROF 14(COMP METB)on 022 Anion gap [Moles/Vol] 13.1 mmol/L Normal [facility] Comment on above: Performed By: #### G LU1HR #### [facility] [address] [place] [address] Dr. Valeria Farris Calcium [Mass/Vol] 8.7 mg/dL Normal 8.5-10.1 [facility] Comment on above: Performed By: #### G LU1HR #### [facility] [address] [address] [address] Valeria Farris Chloride [Moles/Vol] 100 mmol/L Normal 98-107 [facility] Comment on above: Performed By: #### G LU1HR #### [facility] [address] [place] [address] Dr. Valeria Farris CO2 [Moles/Vol] 25.4 mmol/L Normal 21.0-32.0 [facility] Comment on above: Performed By: #### G LU1HR #### [facility] [address] [address] [address] Valeria Farris Glucose [Mass/Vol] 87 mg/dL Normal 74-106 [facility] Comment on above: Performed By: #### G LU1HR #### [facility] [address] [address] [address] Valeria Farris Potassium [Moles/Vol] 3.5 mmol/L Normal 3.5-5.1 [facility] Comment on above: Performed By: #### G LU1HR #### [facility] [address] [address] [address] Valeria Farris Sodium [Moles/Vol] 135 mmol/L Critically low 136-145 [facility] Comment on above: Performed By: #### G LU1HR #### [facility] [address] [address] [address] Valeria Farris Urea nitrogen/Creatinine [Mass ratio] 15.9 mg/mg Normal [facility] Comment on above: Performed By: #### G LU1HR #### [facility] [address] [address] [address] Valeria Farris US PREG CERVICAL LENGTHon [...] GERARD GONZALEZ Date: 2022-04-12 16:39 Normal [facility] UA (CLEAN/CATCH) COLORING ROOM WORKER/MICRO I F IND.on 04-11-2022 Bilirubin Ql (U) Negative Normal NEGATIVE [facility] Comment on above: Performed By: #### U ACSTRUPTI UMICRO #### [facility] [address] [address] [address] Valeria Farris Clarity (U) CLEAR Normal CLEAR [facility] Comment on above: Performed By: #### U ACSTRUPTI UMICRO #### [facility] [address] [address] [address] Valeria Farris Color (U) LT. YELLOW Normal YELLOW [facility] Comment on above: Performed By: #### U ACSTRUPTI UMICRO #### [facility] [address] [address] [address] Valeria Farris Glucose Ql (U) Negative Normal NEGATIVE [facility] Comment on above: Performed By: #### U ACSIND, UMICRO #### [facility] [address] [address] [address] Valeria Farris Hemoglobin Ql (U) TRACE-INTACT Abnormal NEGATIVE [facility] Comment on above: Performed By: #### U ACSIND, UMICRO #### [facility] [address] [address] [address] Valeria Farris Ketones Ql (U) Negative Normal NEGATIVE [facility] Comment on above: Performed By: #### U ACSIND, UMICRO #### [facility] [address] [address] [address] Valeria Farris LEUKOCYTES Negative Normal NEGATIVE [facility] Comment on above: Performed By: #### U ACSIND, UMICRO #### [facility] [address] [address] [address] Valeria Farris Nitrite Ql (U) Negative Normal NEGATIVE [facility] Comment on above: Performed By: #### U ACSIND, ICRO #### [facility] [address] [address] [address] Valeria Farris pH (U) 6.5 [pH] Normal 5-9 [facility] Comment on above: Performed By: #### U ACSTRUPTI, ICRO #### [facility] [address] [address] [address] Valeria Farris SPEC GRAVITY 1.010 Normal 1.005-<=1.02 5 [facility] Comment on above: Performed By: #### U ACSIND, UMICRO #### [facility] [address] [place] [address] Dr. Valeria Farris UA PROTEIN Negative Normal NEGATIVE/ TRACE [facility] Comment on above: Performed By: #### U ACSIND, UMICRO #### [facility] [address] [address] [address] Valeria Farris UR MICRO IND INDICATED Normal [facility] Comment on above: Performed By: #### U ACSTRUPTI, UMICRO #### [facility] [address] [place] [address] Dr. Valeria Farris Urobilinogen Qn (U) 0.2 {Manolo'U}/dL Normal 0.2 - 1. 0 [facility] Comment on above: Performed By: #### U ACSTRUPTI UMICRO #### [facility] [address] [place] [address] Dr. Valeria Farris URINE MICROSCOPIC ONLYon BACTERIA NONE SEEN Normal NONE SEEN [facility] Comment on above: Performed By: #### U ACSTRUPTI, UMICRO #### [facility] [address] [place] [address] Dr. Valeria Farris Bacteria identified Cx Nom (U) NOT INDICATED Normal [facility] Comment on above: Performed By: #### U ACSTRUPTI UMICRO #### [facility] [address] [place] [address] Dr. Valeria Farris CAST NONE SEEN Normal NONE SEEN [facility] Comment on above: Performed By: #### U ACSTRUPTI UMICRO #### [facility] [address] [place] [address] Dr. Valeria Farris Crystals LM Nom (Urine sed) NONE SEEN Normal NONE SEEN [facility] Comment on above: Performed By: #### U ACSTRUPTI UMICRO #### [facility] [address] [place] [address] Dr. Valeria Farris Epithelial cells LM Ql (Urine sed) FEW Abnormal NONE SEEN /RARE [facility] Comment on above: Performed By: #### U ACSTRUPTI UMICRO #### [facility] [address] [place] [address] Dr. Valeria Farris MUCOUS NONE SEEN Normal NONE SEEN [facility] Comment on above: Performed By: #### U ACSTRUPTI UMICRO #### [facility] [address] [place] [address] Dr. Valeria Farris RBC 0-2 Normal 0-2 [facility] Comment on above: Performed By: #### U ACSTRUPTI UMICRO #### [facility] [address] [place] [address] Dr. Valeria Farris WBC 0-2 Abnormal NONE SEEN [facility] Comment on above: Performed By: #### U ACSINDDAPHNE #### [facility] [address] [address] [address] Valeria Farris US PREG ANATOMY SINGLEon [...] by: ALINE GALICIA Date: 2022-03-28 10:57 Normal [facility] XR SHOULDER RT 2V or >on XR SHOULDER RT 2V or > EXAM: XR SHOULDER RT 2V or > INDICATION: Pain. COMPARISON: None. TECHNIQUE: Right shoulder, 3 views. FINDINGS: No acute fracture or dislocation. Intact glenohumeral and acromioclavicular joints. Unremarkable soft tissues. IMPRESSION: Normal right shoulder. Electronically authenticated by: GILDARDOKEON TAYLOR Date: 2022-03-19 08:36 Normal [facility] AFP TETRA PROFILE (MATERNAL) on 03-08-2022 AFP MoM 0.60 Normal [facility] Comment on above: Performed By: #### U LETI UMICRO #### [facility] [address] [address] [address] Valeria Farris AFP Value 15.2 ng/mL Normal [facility] Comment on above: Performed By: #### U LETI UMICRO #### [facility] [address] [address] [address] Valeria Farris Comment Comment Normal [facility] Comment on above: Result Comment: Nicolás Ramirez, Ph.D., [facility] Director . References: Available Upon Request. . Multiples Of Median Cutoffs Abbreviation Definitions For AFP Elevations IDD- Insulin Dep Diabetes Rodriguez 2.5 Black 2.8 OSBR- Open Spina Bifida IDD 2.0 Twins 4.5 Risk DSR Cutoff 1:270 DSR- Down Syndrome Risk T18 Cutoff 1:100 T18- Trisomy 18 . For further inquiries contact [facility] at [phone]. . This test was developed and its performance characteristics determined by [employer]. It has not been cleared or approved by the Food and Drug Administration. Performed By: #### U ZAID LANDEROSICRO #### [facility] [address] [address] [address] Valeria Farris CHACE MoM 0.90 Normal [facility] Comment on above: Performed By: #### U LETI UMICRO #### [facility] [address] [address] [address] Valeria Farris CHACE Value 95.93 pg/mL Normal [facility] Comment on above: Performed By: #### U ZAID LANDEROSICRO #### [facility] [address] [address] [address] Valeria Farris DSR (By Age) 1 IN 656 Normal The [facility] Comment on above: Performed By: #### U LETI UMICRO #### [facility] [address] [place] [address] Dr. Valeria Farris DSR (Second Trimester) 1 [place] 5782 Normal [facility] Comment on above: Performed By: #### U ALEX LANDEROSRO #### [facility] [address] [address] [address] Valeria Farris Gest. Age on Collection Date 16.7 WEEKS Normal [facility] Comment on above: Performed By: #### U LETI UMICRO #### [facility] [address] [address] [address] Valeria Farris Gestat. Age Based On SUNSHINE [facility] Comment on above: Result Comment: 07/23 Performed By: #### ALEX SNURO #### [facility] [address] [place] [address] Dr. Valeria Farris hCG MoM 0.61 Normal [facility] Comment on above: Performed By: #### U LETI UMICRO #### [facility] [address] [place] [address] [place] [address] m[IU]/mL [facility] Comment on above: Performed By: #### Jona LANDEROS UMICRO #### [facility] [address] [place] [address] Dr. Valeria Farris Insulin Dep Diabetes No Normal [facility] Comment on above: Performed By: #### U LETI UMICRO #### [facility] [address] [place] [address] Dr. Valeria Farris Interpretation Comment Normal [facility] Comment on above: Result Comment: [...] identifies 60% of Trisomy 18 pregnancies. The [employer] recommends amniocentesis be offered to women age 35 and older. Recalculations are not recommended when gestational dating by LMP and ultrasound are within 10 days. Performed By: #### U ACSTRUPTI UMICRO #### [facility] [address] [address] [address] Valeria Farris [age] Normal [facility] Comment on above: Performed By: #### U ACSTRUPTI UMICRO #### [facility] [address] [address] [address] Valeria Farris Multiple Gestation No Normal [facility] Comment on above: Performed By: #### U ACSTRUPTI UMICRO #### [facility] [address] [address] [address] Valeria Farris OS[place] [address] Normal [facility] Comment on above: Performed By: #### U ACSTRUPTI UMICRO #### [facility] [address] [address] [address] Valeria Farris PDF . Normal [facility] Comment on above: Performed By: #### U ACSTRUPTI UMICRO #### [facility] [address] [address] [address] Valeria Farris Race [facility] Comment on above: Performed By: #### U ACSTRUPTI UMICRO #### [facility] [address] [address] [address] Valeria Farris Results Report [facility] Comment on above: Performed By: #### U ACSTRUPTI, UMICRO #### [facility] [address] [address] [address] Valeria Farris T18 (By Age) 1:2556 Normal [facility] Comment on above: Performed By: #### U ACSTRUPTI UMICRO #### [facility] [address] [address] [address] Valeria Farris T18 Risk Not increased Normal [facility] Comment on above: Performed By: #### U ACSTRUPTI UMICRO #### [facility] [address] [address] [address] Valeria Farris Test Results: Negative Normal [facility] Comment on above: Performed By: #### U ACSTRUPTI UMICRO #### [facility] [address] [address] [address] Valeria Farris uE3 MoM 0.75 Normal [facility] Comment on above: Performed By: #### U ACSTRUPTI UMICRO #### [facility] [address] [address] [address] Valeria Farris uE3 Value 0.71 ng/mL Normal [facility] Comment on above: Performed By: #### U ACSTRUPTI UMICRO #### [facility] [address] [address] [address] Valeria Farris GLUCOSE - 1HRon 03-03-2022 Glucose [Mass/Vol] 214 mg/dL Critically high 74-106 T [facility] Comment on above: Performed By: #### G LU1HR #### [facility] [address] [place] [address] Dr. Valeria Farris HEPATITIS C VIRUS AB W/ REFL EX QUANTon 01-11-2022 HCV AB <0.1 Normal 0.0-0.9 [facility] Comment on above: Performed By: #### P REGQNT #### [facility] [address] [place] [address] Dr. Valeria Farris Interpretation: Comment Normal The [facility] Comment on above: Result Comment: Nega tive Not infected with HCV, unless recent infection is suspected or other evidence exists to indicate HCV infection. Performed By: #### P REGQNT #### [facility] [address] [place] [address] Dr. Valeria Farris HEP B SURFACE ANTIGEN SCREEN on 01-10-2022 HBsAg Screen Negative Normal Negative [facility] Comment on above: Performed By: #### P REGQNT #### [facility] [address] [place] [address] Dr. Valeria Farris HIV 1 AND 2 WITH REFLEXon HIV Screen 4th Generation wRfx Non-Reactive Normal Non Reactive [facility] Comment on above: Result Comment: HIV Negative HIV-1/HIV-2 antibodies and HIV-1 p24 antigen were NOT detected. There is no laboratory evidence of HIV infection. Performed By: #### H IV12 #### [facility] [address] [place] [address] Dr. Valeria Farris RPR QUANTon 01-10-2022 Rapid Plasma Reagin, Quant Non-Reactive Normal NonRea<1:1 [facility] Comment [...] utilized, such as Treponema pallidum (Syphilis) Screening Curran (181134) or Rapid Plasma Reagin (RPR) Test With Reflex to Quantitative RPR and Confirmatory Treponema pallidum Antibodies (609914). Performed By: #### R PRQ #### [facility] [address] [place] [address] Dr. Valeria Farris RUBELLA AB IGGon 01-10-2022 Rubella Antibodies, IgG 1.83 index Normal Immune >0.99 [facility] Comment on above: Result Comment: Non- immune <0.90 Equivocal 0.90 - 0.99 Immune >0.99 Performed By: #### U ACSIND, UMICRO #### [facility] [address] [place] [address] Dr. Valeria Farris CBC AUTO DIFFon 01-09-2022 BASO # 0.0 103/ul Normal 0.0-0.1 [facility] Comment on above: Performed By: #### 4 [id number] #### [facility] [address] [place] [address] Dr. Valeria Farris Basophils/100 WBC (Bld) 0.4 % Normal 0.2-2.0 [facility] Comment on above: Performed By: #### 4 [id number] #### [facility] [address] [place] [address] Dr. Valeria Farris EO # 0.3 103/ul Normal 0.0-0.7 [facility] Comment on above: Performed By: #### 4 [id number] #### [facility] [address] [place] [address] Dr. Valeria Farris Eosinophils/100 WBC (Bld) 3.5 % Normal 0.9-7.0 [facility] Comment on above: Performed By: #### 4 [id number] #### [facility] [address] [place] [address] Dr. Valeria Farris Erythrocyte distribution width (RBC) [Ratio] 13.6 % Normal 11.0-15.0 [facility] Comment on above: Performed By: #### 4 [id number] #### [facility] [address] [place] [address] Dr. Valeria Farris Hematocrit (Bld) [Volume fraction] 38.9 % Normal 36.0-48.0 [facility] Comment on above: Performed By: #### 4 [id number] #### [facility] [address] [place] [address] Dr. Valeria Farris Hemoglobin (Bld) [Mass/Vol] 12.9 g/dL Normal 12.0-16.0 [facility] Comment on above: Performed By: #### 4 [id number] #### [facility] [address] [place] [address] Dr. Valeria Farris IG # 0.04 10e3/ul Critically high 0.00-0.03 [facility] Comment on above: Performed By: #### 4 [id number] #### [facility] [address] [place] [address] Dr. Valeria Farris IG % 0.4 % Normal 0.0-0.5 [facility] Comment on above: Performed By: #### 4 [id number] #### [facility] [address] [place] [address] Dr. Valeria Farris LYMPH # 2.1 103/ul Normal 1.2-3.8 [facility] Comment on above: Performed By: #### 4 [id number] #### [facility] [address] [place] [address] Dr. Valeria Farris Lymphocytes/100 WBC (Bld) 21.5 % Normal 20.5-60.0 [facility] Comment on above: Performed By: #### 4 [id number] #### [facility] [address] [place] [address] Dr. Valeria Farris MANUAL DIFF REQ NO Normal The [facility] Comment on above: Performed By: #### 4 [id number] #### [facility] [address] [place] [address] Dr. Valeria Farris MCH (RBC) [Entitic mass] 27.9 pg Normal 26.7-34.0 [facility] Comment on above: Performed By: #### 4 [id number] #### [facility] [address] [place] [address] Dr. Valeria Farris MCHC (RBC) [Mass/Vol] 33.2 g/dL Normal 29.9-35.2 [facility] Comment on above: Performed By: #### 4 [id number] #### [facility] [address] [place] [address] Dr. Valeria Farris MCV (RBC) [Entitic vol] 84.0 fL Normal 81.0-99.0 [facility] Comment on above: Performed By: #### 4 [id number] #### [facility] [address] [place] [address] Dr. Valeria Farris MONO # 0.6 103/ul Normal 0.3-0.8 [facility] Comment on above: Performed By: #### 4 [id number] #### [facility] [address] [place] [address] Dr. Valeria Farris Monocytes/100 WBC (Bld) 5.6 % Normal 1.7-12.0 [facility] Comment on above: Performed By: #### 4 [id number] #### [facility] [address] [place] [address] Dr. Valeria Farris NEUT # 6.7 103/ul Critically high 1.4-6.5 [facility] Comment on above: Performed By: #### 4 [id number] #### [facility] [address] [place] [address] Dr. Valeria Farris Neutrophils/100 WBC (Bld) 68.6 % Normal 43.0-75.0 [facility] Comment on above: Performed By: #### 4 [id number] #### [facility] [address] [place] [address] Dr. Valeria Farris Platelet mean volume (Bld) [Entitic vol] 9.9 fL Normal 9.5-13.5 [facility] Comment on above: Performed By: #### 4 [id number] #### [facility] [address] [place] [address] Dr. Valeria Farris PLT 244 103/ul Normal 150-450 [facility] Comment on above: Performed By: #### 4 [id number] #### [facility] [address] [place] [address] Dr. Valeria Farris RBC 4.63 106/ul Normal 4.20-5.40 [facility] Comment on above: Performed By: #### 4 [id number] #### [facility] [address] [place] [address] Dr. Valeria Farris WBC 9.7 103/ul Normal 4.0-11.0 [facility] Comment on above: Performed By: #### 4 [id number] #### [facility] [address] [place] [address] Dr. Valeria Farris CULTURE URINEon 01-09-2022 CULTURE URINE Culture Observations : MODERATE GROWTH OF MIXED GENITAL RIO. NO POTENTIAL PATHOGENS SEEN. Normal [facility] Comment on above: Performed By: #### U RCX #### [facility] [address] [place] [address] Dr. Valeria Farris GLYCOHEMOGLOBIN A1Con 2021 ADA RECOMMENDATION SEE BELOW Normal [facility] Comment on above: Result Comment: ADA RECOMMENDED LIMIT 4.0 - 6.0 ADA THERAPEUTIC TARGET < 7.0 ACTION SUGGESTED > 7.0 Performed By: #### P REGQNT #### [facility] [address] [place] [address] Dr. Valeria Farris Glucose [Mass/Vol] 111 mg/dL Normal [facility] Comment on above: Performed By: #### P REGQNT #### [facility] [address] [address] [address] Valeria Farris HbA1c (Bld) [Mass fraction] 5.5 % Normal 4.5-6.2 [facility] Comment on above: Performed By: #### P REGQNT #### [facility] [address] [address] [address] Valeria Farris LETHA BOX TEST PT SEND OUTo n 01-09-2022 SENT TO REF LAB 01/09/2022 Normal The [facility] Comment on above: Performed By: #### N BOX #### [facility] [address] [address] [address] Valeria Farris TYPE AND SCREENon 01-09-2022 TYPE AND SCREEN Negative Normal [facility] Comment on above: Performed By: #### 4 [id number] #### [facility] [address] [place] [address] Dr. Valeria Farris US PREG TVon 12-30-2021 [...] GERARD GONZALEZ Date: 2021-12-30 17:14 Normal [facility] US PREG TVon 12-15-2021 US PREG TV [...] GERARD GONZALEZ Date: 2021-12-14 22:02 Normal [facility] HCG-BETA SUBUNIT QUANTon hCG,Beta Subunit,Qnt,Serum 571 mIU/mL Normal [facility] Comment on above: Result Comment: Fema le (Non-) 0 - 5 (Postmenopausal) 0 - 8 . Female () Weeks of Gestation 3 6 - 4 10 - 750 5 217 - 7138 6 158 - 35894 7 [phone] [phone] 8 49079 -[phone] 9 20529 -606842 10 77270 -676919 12 73333 -399557 14 41919 - 05767 15 98598 - 67773 16 9040 - 01770 17 8175 - 87003 18 8099 - 76601 Jamel ECLIA methodology Performed By: #### P REGQNT #### [facility] [address] [place] [address] Dr. Valerai Farris HCG-BETA SUBUNIT QUANTon hCG,Beta Subunit,Qnt,Serum 65 mIU/mL Normal [facility] Comment on above: Result Comment: Fema le (Non-) 0 - 5 (Postmenopausal) 0 - 8 . Female () Weeks of Gestation 3 - 4 10 - 750 5 217 - 7138 6 158 - 31666 7 3697 -997270 8 23921 -938493 9 35774 -222602 10 95554 -380582 12 21400 -907509 14 98340 - 16527 15 93810 - 44619 16 9040 - 24646 17 8175 - 42854 18 8099 - 60637 Jamel ECLIA methodology Performed By: #### U ACSIND, UMICRO #### [facility] [address] [place] [address] Dr. Valeria Farris HCG-BETA SUBUNIT QUANTon hCG,Beta Subunit,Qnt,Serum 18 mIU/mL Normal [facility] Comment on above: Result Comment: Fema le (Non-) 0 - 5 (Postmenopausal) 0 - 8 . Female () Weeks of Gestation 3 6 - 71 4 10 - 750 5 466 - 3434 6 112 - 16927 7 0986 -[phone] 8 69790 -433762 9 61526 -189149 10 56223 -019332 12 74823 -178119 14 49037 - 38879 15 76148 - 85339 16 5371 - 31022 17 7783 - 23878 18 7366 - 30979 [employer] ECLIA methodology Performed By: #### G LU1HR #### [facility] [address] [address] [address] Valeria Farris PREG QUANT HCGon 10-05-2021 HCG QUANT <1 Normal [facility] Comment on above: Performed By: #### P REGQNT #### [facility] [address] [place] [address] Dr. Valeria Farris HCG RANGE SEE BELOW Normal [facility] Comment on above: Result Comment: 5-50 0-1 WEEK 40-300 1-2 WEEKS 100-1,000 2-3 WEEKS 500-6,000 3-4 WEEKS 5,000-200,000 1-2 MONTHS 10,000-100,000 2-3 MONTHS 3,000-50,000 2ND TRIMESTER 1,000-50,000 3RD TRIMESTER Performed By: #### P REGQNT #### [facility] [address] [place] [address] Dr. Valeria Farris FREE T4on 09-12-2021 Free T4 [Mass/Vol] 0.88 ng/dL Normal 0.76-1.46 [facility] Comment on above: Performed By: #### P REGQNT #### [facility] [address] [place] [address] Dr. Valeria Farris TSHon 09-12-2021 TSH 1.564 uIU/mL Normal 0.358-3.740 [facility] Comment on above: Performed By: #### [id number] #### [facility] [address] [place] [address] Dr. Valeria Farris TSH RANGE SEE BELOW Normal [facility] Comment on above: Result Comment: <0.3 4 UIU/ml HYPERTHYROID 0.34-5.60 UIU/ml EUTHYROID >5.60 UIU/ml HYPOTHYROID Performed By: #### 4 [id number] #### [facility] [address] [address] [address] Valeria Farris US VENOUS DOPPLER L [...] GERARD GONZALEZ Date: 2021-09-12 14:31 Normal [facility] Coding Summaryon 10-16-2020 Coding Summary HTMLBase 64 XosfrxvvIUe9pLi+PGhlYWQ+ FX5JCHQkA35ejDEzsO7MG9uR XA5ATACZYRXPFE1KOP0puOC3 LYezP0BiprXa JgulrUNxBA59XOp5ZOR7fOrf KQflcL4fnSYoZ8b3ZnYcCT31 pG36WUygBEAsCwP8HsVxjwxt bWFy G3jvXtXzuKMiXtl+PHRhYmxl IHdpZHRoPScxMDAlJyBzdHls XR4uSc7lVPIaMIWqaTohfMNb OiBj p5cyOZDnSZvlST6xoMusE2Tc uEN7ZKQgt3r8Hg55fXL+PHRk HGH3gQejYJijo837KbNef6hl IDM3 tLLdZMtdKRO1E66aq4Y4BHYf TQPfKTN6nVB3cC0rxSifatmv M9IbcHIoIjJ6ONX8qAPtsF3g bGln ovqbgO9cXym+J66QFA9NOUDK TV2VJpb6H1GePoqooQI+PC90 YUOzAD72bRGrbLUqo3zfkYq2 JzEw SMSmLSJ2iLwzEVuge4HxDNPn K68keTMhw2A3NQZhtFzqbBIt GbKngWK4lK0eNTuywzbmo1yu dzsn Vqtlu6rmty48gO70U04xHTfr IPIoMCH9VYUmBVIjdCubqd7o wB3jDy3+XMmoq4jbl3ndiMj7 IjIw RKLrydSeoSemVQH7m9JuJd66 S2JydTfbo1SpLzi6vp84pDQd f8E5uJS7JTozWGDrvV3hDTuw ZnQ6 YJHdMiRgzY83uMQyQZtjTa4c xAkvwMznGT0pZGMediwoOTKz vL0mHXUgeZZwbCkuPT5tTEWq bjtm n284SgIqBEF1XOGwpPLdC3Wg zO3fCtScWFAqBPAmO1PthTAe TNszS046VYdcGdW4XJMmyqAu Y2Fs SZGpuNuaOqB9g0K7Ym4Wl4Gy gcdqMTC3XIhhKSM4UjU6BdAo DbB2E8EgRps2VYUnoVkkNJ8b J3Bh DKSjuywwbecviNC0ZYTuPUBz hR60hWHfQAxeEz0sz2F5m467 NGSaIDWimB25Nj3ytGxoPXYk dCBU wM8dctfnn5bccttmSlLnUODm KQu4NIz2FAOrdFywPtYkYIU1 PmI9AJD7bLTpoQ1haCphbgfq dG9w Oyc+J17mfY8vUAK5NRJ6lfdq WXCnxjJbMY43ZM29E7EdCbxs dGFibGU+JYSsqnEimVqpKP3h YmFj l5aph2JrBWzsJ7ZtPLOcIUxf Yyh9HSLtBXB3mOI7nN9cPCFx ZZldj3E0uMR9V5UefsUgvk1c b2xs PSWiUTqdY10eyONfx1Z4UIUb cRZ5FZNglQqoOuRerN16Srz+ HINqwTudj0AtYpehi2hqs2pf dGg9 TpGfPLOvrgZelPfwUGE7b1Dy Gn40W84wMDrpDJFlUPDcUJUg WIWoyKlfme1vlQ2gVi0+PGNv bCB3 fIP4hJ6vGQIhTrM3PPweO422 CwLsaSRhKsyxw7qvu6emtSh0 QtUrPRYsqgHhaSpfYBI1m3Sa Lz48 M03aIQupETMbYMJnKMGlUOWv wDcdon8ffG7gBu7+LR7vi1uc yr80qU51tWZ+HMHzTQN6sPzj PSdw DLVwdL4eTTmkFfP0FPXePnQr hT45bPPsAZfpUl1kcGblgXdf SM3oEQZaynoeq190CsKoc3ui IDEw iKHxDLvgHVQ9J24ce7Y2KLDm RTQbCIU1fNY2sT4lrBcmggcc bGVmdDsgdmVydGljYWwtYWxp Z246 IHRvcDsnPlBhdGllbnQgTmFt UBu4P5WhMxi6SYMwgXccAL9g qYRiJNqiZa0wvNckgYwpVB1d NTBp uwxqy995JxOjc9kjCIHkoSLs HWypUIA3O42kw1E0SLBzGPCi CIS8gIG4bY5rdGitlavynPTd dDsg viQchUiaBQnuOOqlR322VGTz zVazYjLlsdSnBSXldDY5CW28 UK74cDGml8P4dTV4T8MyGTBl bmct svmczDW9VIAuOARtqK81Va8z dLfzFb6mWKIvPJS3QLDtlKGt Q9XejS4tPfJjAVAgIXBqN5Hu eHQt DTuaL699MOglKrL8ZKGeodGj X3UeOZEnmHytGxS3h8O8Ca6B M3G6RF80UH68xDBxe9T3yRJ2 J3Bh WGMhtduorghkhCO7JTCzMGIg fB00Dj2vfObxLo5lESQpBWV1 KDRtiVUyE2XibX4kNjViMZAa MDAw B8ZvbWCoSXujH119LBhqQiT4 ZITptaGvZ4NwEVXcpWbhQgL1 r9C8Ip7OGZo3JU74ML80xRDx c3R5 bAL8S0LbLSEukotlhnrneKD1 VZRwSNJwgG84Dg7bnMisYg4k NIAiCYD0EJSejREyQ9WkwD1k OiAj WYYeXFWwJ6JkpNOtRAuvO767 ARijZfJ2DYBbdhIbU4KjPXWg lVmtZhW1v8B9Wk1OUKOnGJ92 IFR5 oFF7YZ18UR47L9RlJrhvdWAj bGU+PHRhYmxlIHdpZHRoPScx ZCYdWqSwwEggYV0iZa0uTVSv LWNv hIqmxIVnOrWdj1bhEJMyUCqd AN1ycXckM9LvxVP6RQGmw4x9 Lz64Z47cE1VwoWL+PGNvbCB3 aWR0 iL1lYuDaByO1AKkeF543DdPd gRYjXauhe9xkx1cckTr4PvA7 BYNbklEjrGsvTDZ9x0SfHs45 Y29s IHdpZHRoPSIxNSUiIHZhbGln uz2fyS9rRz2+DSGmqXG6oTX4 tX7dTiNdTlX4NYkrH119IfXn cCIv Padtv8flv5hiyVu7EtVcFFUj ltZxcYpoUBJ9r1FcNu90Q4Ru qWvgc9SwHyn0de30pBWmu9H8 bGU9 E2OcONEdhazbgKEdgVsvHD4a WWBorxscBRGsuR8vAMDrP0l4 IcEnKeZ3MRrsZ5CbylR6FMZn cHQg ZDgrAXI2I91ij4D3ZYLzREGz TAQ0jFV9mZ5rdSzoprmsoPPs vQdiimFuuKowMSwrLSpwB602 IHRv gOyyZRGmjG4sYCWryHNnbWti GJ6xUYCikdosRtIXFzIWNyMD LCBNRUdBTiBNQVJJRTwvdGQ+ PHRk ATG4cOyrLEjiESNecM5uRJPy F1q4OpCaIuH8JDzeI2YfBLWw uwahPg28eG2sKyKcPfJ8QGnx O2Zv gqK8IWIttFZcQZtbAHQ9V99t o2P7QONdSJJsVPK7aBY0kP2z bGlnbjogbGVmdDsgdmVydGlj YWwt BBhyT364EUUagVmdTbJhTpG5 AfD7IQY3P1XwLvt0LJKgoGcw QR1siKEjGUsiLd0umXvfmAme MC4w RECwintqKNQisR2vHMJekIRu dYboCK9aSEHxustch115McOb WVX7OUKyiTAlO4FugW3mVwVx MDAw ULBtP4WwpXVcSTkjK319UQas WhW8YTXlteCkA4PuDKFnoCpk TwJ6f6L4Bo5hVTUVGTExheif dGQ+ ICQtVNX7aXbbOYtnUFEmiI5f BSTkW3z4QuDyYwO5MMcnE7Sc YBSebcxrKq81tA8vCfDqXnI4 MGlu H1NsurM2ZVRatCFpNYbjLSU7 F50ln6W6QBJyFSReDET9zER8 rG1vwSgjltncqIWdsGpiaiQk dGlj WGaeZWlsV483QYLqnCiqFyPG TUFMRTwvdGQ+KWEmZKS3cNkl MFzlPLVcfM7oLJEgN3y2SiDb LjA1 RXmhQ3PaHNEevfdtBe10bN6f QrScVmF7AJtlP3HboaI2EYGv nRXzDHusMHA2Q17mp6Q4FNHh MDAw MFJ7tEF0eG6vyOicwcoygUZq zZzqyxEkoZqnYJxyAVckT790 OSGkxSrrGa3IEY67BM35C7Jr Pjwv dGFibGU+PHRhYmxlIHdpZHRo PWdaHBTaCmNnxYegWL0lOu9h IYWdVQPwhEhdxEQdTvWca0gm YXBz LBygIA2nlWgnB9JufMK0BOOt e8y4Wo25S85gM4EebNW+PGNv iCU8bFG6gH8rNaInEpI0RAxy Z249 ExTjoXRxGpaka5hrp3sioFg2 UfUiJZZmulOgoQhaQPL1d3Wv Iv53H99cKMziRAChHVOjVWAt IHZh jVoyay1feU6uJj5+PGNvbCB3 mTN0jN6wFuJsDeT8DRtnI155 UpHjyOAoFmbmA15oP2WrwRR+ PHRy Lnx0YSGnuOaoJZ8osEJlFUdb Dd0mXJI9PnRqOcHrTXsxQ4Ml ANRpkvhkqkktgSU0WWFlRULb aW47 Xi9boPnzNx7cLFWmEGP0AMIj fYRuR5RtlH0wVjXcELHrFOXi X9XywCPwHFnyW721XGcmCiJ6 IHZl wuUzS8XlELWagTanHpM8u1A3 Tb2NgIdffYMcII7vDmEqXIk0 Y0YhBge7VNQnkLhcGE7fkBPp ZGlu Lt2ylGaokYmoNF3vQRNlmbtb y395LbBto2pjSVCsrVPcQWbh BWL9U09mt3G0LJTjVBNpXIU8 dGV4 eO1btXhtmqjfcBHvuUycbrWe aIjpMReqBVqrL899ADBktJyn DlPKZsq6N1KjEng5BZAheDfz ZT0n vUCzXOeaWi4ujCfeeIwqNU2a PJYdkxjuz018SgWtm6ttVYMy tOAzSPtyQGC4G85jq4A1BRFl MDAw EUC2aEX1wM4ihYogfifyuSSn rIagliNvyIzjFEtaXIemR406 DXYifOrpHu7LTip6J5XcVhh8 ZCBz mAycBJ5ukRWfBKvpMu6ycNak wFukNP4nZJKjbwybc646BwHx j4jwAORnkOUfKFhhXFL2Q57c b3I6 VFSwLLFkFJQ6nMB8rL0mcOqh bjogbGVmdDsgdmVydGljYWwt XOsfJ592RNCigVyfKsXvpCZw Ojwv dGQ+WG96mc08K2ZgJcyhAdr5 SBSkZYT0kSO2bV4rIMEzEGcm p8G3zOC3Y1QkiaHzmz2wk1qc YXBz ZTo (more content not included)... [facility] Coding Summary HTMLBase 64 MiqrxtduQVz2fHf+PGhlYWQ+ TB3FZOSvP18xkMPalL8QZ5mS ZY6LTLPUEAPGFE2RLH4irXO4 GQguQ0SrcoTk AlwyeFHmFT18ANv3RJG7eMzt RLxvrF8ipXEwE7j8IoPtVI42 xJ15JRczXGKiZcJ6LuZbulbd bWFy G7vyYjAoyEMkOtg+PHRhYmxl IHdpZHRoPScxMDAlJyBzdHls AW9wHi7kSGAeRPXmjKytsHLx OiBj k9wbQRKlGTdgPF9jkUiqE7Sx vVF2FEOfb4k3Td95rEF+PHRk FAI8rPigYOubx537LwEyv3qz IDM3 xJCqBCetERG8M76ks0P2QFSc KJYhRBC6wEV5zZ2dzWqldpqy S2QcrODoOuZ9JEU1gDOmxP7i bGln ztjteS7lZwk+S37TJZ1VGOBR IF4UWfs2Z3GzPgbgkZP+PC90 WIQlIP32xHTtcNHrt2rvoGn9 JzEw IFGeSXQ9jToxERomn0HpCHUx Y15boOUdv0H9QITufCzuwTGx FhPgnMX6jL9kVBpllxiag6se dzsn Wnkxf5gzup31hU96Y56iHOpe BEQhPQF2RUHmTLRojYldfw2f cJ1qKf5+AVjyf1qgq4zktMg3 IjIw BMEskrDcsWnuLWP2s6JmHn25 L1CgfUnpl1IjBhk6zc81hFJc c4T4tDU1DIquOHQtuX1yVMtr ZnQ6 NXFnAzJmiZ18cMUfPWptMt1c dApoiAurIW4rPGAqjfwyGRJp uU6nBBCcuKCtfBdeWJ1wBNBf bjtm n254QeAnAJW2UKOnfTAvF6Eg kP5gYhClQVEfIGZlB3ObsSMf MIdkC019LLawUnF7AEScahMu Y2Fs SHVnzCrcGdT3w7P1Am0Ms6Bb vfitFYW4WRksRQG2JhR0QzFy IoP0P3EnYoq8QNUtsMrtDT7z J3Bh BNDrhslmymbnrJG9FEPzGFOk dY32rTQtKMqsNo2eb2U1b779 XIIeADJswG95Xk5zwJyvGPRw dCBU hQ2jgkduh0kmpoxyDkFxYMQp PWr1VBx3DGMvvXvzIkNxPUI2 RmC6MZO1nNEuaT4blZhiqdgj dG9w Oyc+L00kjZ9qLIT1JBI5ussa TAWavzXpFR89KI46U6DjEufq dGFibGU+DLFjokGitVseNM4a YmFj o6kde7DwIBuiH2OePBGbQUjf Rur0VCPpJYR5xJI0eJ5wRJYg UTvku3B1tTO0M2FxaeJakz1p b2xs GBYxXFllB80nqGOag0U2QAHl uXP8QOSuvVliXlKygH40Pjp+ GONxdVumh3LmVvhev7eur1aa dGg9 ToBpGDDzeaVzqVyaJBI5n4Gi Ae75J17kFHimRNQsUTIaJVZk WHWikPudid2jkX0aLr7+PGNv bCB3 aAK2kB6qZWIaKxA8IBsuQ921 CmVigTLcTiuxs0dlv6wskUy4 SkNuOBWtduJffKpbYDD9w7Sj Lz48 N96eMImyKFUyYRHwWDXbRQQp rWuyng0rrF0nGg8+RA1xg0vu mu88jD17mNH+XJOfQJY1oMof PSdw CJTrdJ8tEXmyXtT0WNIrMmYy lP30rFOdUBkzJs9gfQdemHnv NZ2iFNFihabxn273EvOse8dy IDEw hYBnVYveJFV8Y84er7Q6YXLp FCFiOJN1gTU6zT7gcFuwnvzq bGVmdDsgdmVydGljYWwtYWxp Z246 IHRvcDsnPlBhdGllbnQgTmFt KDx2W6OlKbe6OCYtbOssHE4w eANfWYtmJb8qsQfroLulFV6h NTBp jfjig609XpAeg6imJVNfuSVn AMuxSUW3S53fi8G7PESuOXOa QAE0vTE3eV0siXhgofwfvPLx dDsg tcEiwFbfSSdkIFbhT247TJPd kVfxOsBndnQsLEUgwYB4JQ62 WP40uOJfy4P0uKJ2X7XgABXa bmct aqnksMU9WJMgHVEdoR79Ut9p pLurVx4kUXObVBB5JARccFQj M3VkbV2tKoKsCWPtJDVoN4Bc eHQt VNdfC289QOzcEeK6WSWcesNe Q2ClMHVkzUkcVmL9n6C4Yn7F O6D5FY06SD54zVPww4V8qAC3 J3Bh SRAiaimwiyncxSQ0BBKfTEIq wX51Hg0znKahUe8cYLHyBWZ4 QKUzuSJbB9GmvY8mHkZhWQBu MDAw U4CowBKhRFgcF378TWggXiY1 XFXkjvXpZ0YaYSNfyElaWtI3 q3K9Py5ENRz3OQ40JW44cZNx c3R5 zWU1H9PmIFIqwlnsmhrauMJ2 OOOhGIBdcV10Uz7opHwaBx5m RRJwGPB4VORqdGJtX3MvkN0u OiAj QIAaKVLiW0WkfPYrAPnsI482 KQmtRiV6TBFcmpWhH4WkKTPy aHaiIeP8i3N0Dj4WKLFcXX15 IFR5 lYH5LG73OU80R6GhPyqxsCHu bGU+PHRhYmxlIHdpZHRoPScx JXUlZrRbxTxmEX5mMb2kAIHj LWNv pRezmRKgZpSvt9lzXQAzLZkk WA6bqWrjU6GhhLE9JQLhz8m3 Cw52A44vV3WjdAN+PGNvbCB3 aWR0 aJ2fXdAzOrW0DTsqP452NsFo fXCfXlknw6hnj2pdpXt1IrU9 OUArzqEugAlbSAO1a5DyCv09 Y29s IHdpZHRoPSIxNSUiIHZhbGln bf2wcN5lDc5+TOPryEN9oPY7 nO4iLsBpMtY5MTkxV860VaFw cCIv Rxyna6xvb2mkdMt7PwIyHLCa vuFbrUrqOIJ4z2XpFb70A7Sw vUmvk6WlInl1vt07lELue6Z5 bGU9 C0YlJZWgqjkbvREkfXzfLX6w WWIertpsWWRgvX3kAXUaW0p5 ZmXsDoZ2LMhkQ2XtorJ6BZFy cHQg XOzbKHH9M84zf0E3HFVaBKEi UIC0mAH3mE0zxZgwowbuvDKy dVolzoYwlIhwJJqbHUteC906 IHRv fLhhNYOxsF9jNSOboOYkvRdh AS4qIAUralwmOtEZRmYGElNS LCBNRUdBTiBNQVJJRTwvdGQ+ PHRk FTE2dRcuMDdsLDYoqJ5sMYRd K6o6PzWiLlS0SDtlL4KpKCJe qnegQb23pB4mPgRhGlN1JPjr O2Zv hnA5KFPldTBxQTvtJIX8L84u m5U8XNOlCGXySPX2lXW1jK7t bGlnbjogbGVmdDsgdmVydGlj YWwt RNiuX549JBEagVbjCxIbPhT9 PxE1PEX2F3ZeHjg8YZZtpEyk IK0oyJEaRRweJo6qdXcxhTlk MC4w CLVjgueyZFZxeI6cQQJgkKQs lVpsYH3aYQHbmskzr915KtUh XYK1NJBefDKnE8QvxH3uPyKb MDAw SRYtQ7DkmIIgGWopS602CMze DmW9GVQzntKvA5NcIDUyoVkb BrT7o9P3Vb0kFCWTMWPbvpgn dGQ+ HQAlVPI1vWbhYFxrJWGbwN2j ETCwT3x0WfRiZpT7URuxD2Ro DIDqwlvlVu51eM1mMsJlAoL8 MGlu I2NykvK7TGRyvDOdFElcTPC0 N28pm6H9EEEqSLXkMTC1lXX4 uZ6erRqauuvaiYFonCbhayVq dGlj CGjcYDdsM034GIYajGowCjUD TUFMRTwvdGQ+KQWdHEO3gDng IIkcUDXhlB2jZJEoX5g8YkAc LjA1 YVzqL6KjSSBtemmvSf09lS6f HuLqCmP3EMqfI8XecmY5FEYg xJUgWDayKUH5Z85hp4L1YVOj MDAw ONJ6yTX1wP2lyVxnvcarqWCh oQpuhuVjlUxrFUhaZBsvM498 BXNnfBnoUuGpBSIoPE6qiFhw dGQ+ ZF05ea50X3BdCaukXar0SOWl OGH9rIM5aN1wCMVbLIgix9V4 vIZ9P8UgesGtnj1ti6mlZQNl ZTog J76quKMdz5W1HJJprRD5ZTLs eKxmPnLrkY44Hbr+PGNvbGdy o8NoTqorg1gac8tytYx0UuXl JSIg xqGewPmoRCR5x6YfUm24S36c IHdpZHRoPSIzMCUiIHZhbGln kh8hcZ1fXi8+DITaxTR1rEQ1 aD0i WcCcGuY9LOhmS238EsDevIDr Tcfla4zxy0kkxLr5PzDzFRXh gfEjeBcuQUT1c3AdMy74J1Ro bGdy y6GxDxu1mg40aXCcw7C8rKG2 B9XxCPMuexweiHMtaJhqBE2c WSRhxcvnBHRuyG5oERNrP2h6 OiAw OwY3UCabK4FawlJ1HYCsjWAk LEGeqYMKgL9afcrmq9twddqt MsDqSSOrBOb7APa0NWPstOci OiBs VXS5FiQ7EAS0wQYfmB0jcSzp bgouhW0pHem+GCj9n2nmsUHx FN3hgYB0RI40PF45wBQdi6Q3 bGU9 F8KqJJKianpkdomrsDI1GMZb NVVcgZ30Tf3kmJzmSq9kCDJx DQK3SKEkyTVcN2ObmG6fHlLb MDAw ZFOoV7QjrBAlNGicC845BQgl CyG1CKEpuzApM1VeRXEcsHtz CfO4s5I9Bx6ZCE02HI23XT78 dGQg f7T0pXT1L2UiZYLgjdotohac aUC1QCIoBPScnY51Me0diYne Tv4oHUDdYWT8RFIfuOLlE4Nu bG9y CeTxWDEfZQCmM8HhlCQyQHzm F803SUeuIlG1WQEnutXqX5Bz BXWbqGkbAcL8g2F0Hc6TLx98 PC90 QP63pPYpj2Q7yIF3N7WqGUUv flbtvhnffXY2TRRkOROwsB08 Tw9euBjmLm1tLARgLQK2JSFm bWVz R5HvgL1nIwQcFTPeAMGoN6Dv aHAoIQotE579CNykLlE4FWKt qdVsL1JzJWJaoPdnSbT6l4X8 Jz5Q BNyvipz0U9BcTgtngMX+PC90 LTCsZC83nTQhlRRwq7vdjAp0 WxTwSCEsVNI4hMlzYQnry2Wm ZXIt Y29 (more content not included)... Normal [facility] .Auto Diff 110-11-2020 Auto [place] % 6 % Normal 05-04 [facility] Comment on above: Performed By: #### 7 [id number], [id number], [id number], [id number] ####[facility] (DEFAULT)[address] [place] [address] Baso Abs# 0.0 x10 Normal 0.0-0.2 [facility] Comment on above: Performed By: #### 7 [id number], [id number], [id number], [id number] ####[facility] (DEFAULT)[address] [place] [address] 64811 Basophils/100 WBC (Bld) 0.3 % Normal 0.2-2.0 [facility] Comment on above: Performed By: #### 7 681286, [id number], [id number], [id number] ####[facility] (DEFAULT)[address] [place] [address] 88363 Eos Abs# 0.2 x10 Normal 0.0-0.4 [facility] Comment on above: Performed By: #### 7 157601, [id number], [id number], [id number] ####[facility] (DEFAULT)[address] [place] [address] 40414 Eosinophils/100 WBC (Bld) 3.4 % Normal 0.9-4.0 [facility] Comment on above: Performed By: #### 7 828471, [id number], [id number], [id number] ####[facility] (DEFAULT)[address] [place] [address] 66123 Lymph Abs# 2.5 x10 Normal 1.3-2.9 [facility] Comment on above: Performed By: #### 7 973729, [id number], [id number], [id number] ####[facility] (DEFAULT)[address] [place] [address] 92506 Lymphocytes/100 WBC (Bld) 41 % Normal 14-48 [facility] Comment on above: Performed By: #### 7 651093, [id number], [id number], [id number] ####[facility] (DEFAULT)[address] [place] [address] 60814 [place] Abs# 0.4 x10 Normal 0.0-0.8 [facility] Comment on above: Performed By: #### 7 550898, [id number], [id number], [id number] ####[facility] (DEFAULT)[address] [place] [address] 09240 Neut Abs# 3.0 x10 Normal 1.5-9.2 [facility] Comment on above: Performed By: #### 7 662636, [id number], [id number], [id number] ####[facility] (DEFAULT)[address] [place] [address] 28180 Neutrophils/100 WBC (Bld) 50 % Normal 44-88 [facility] Comment on above: Performed By: #### 7 961902, [id number], [id number], [id number] ####[facility] (DEFAULT)[address] [place] [address] CBC w/ Auto Diffon 1 Erythrocyte distribution width (RBC) [Ratio] 13.2 % Normal 11.5-15.0 [facility] Comment on above: Performed By: #### 7 041959, [id number], [id number], [id number] #### [facility] (DEFAULT) [address] [place] [address] Hematocrit (Bld) [Volume fraction] 36.8 % Normal 33.7-40.4 [facility] Comment on above: Performed By: #### 7 408731, [id number], [id number], [id number] #### [facility] (DEFAULT) [address] [place] [address] 82755 Hemoglobin (Bld) [Mass/Vol] 12.4 g/dL Normal 11.3-15.9 [facility] Comment on above: Performed By: #### 7 271503, [id number], [id number], [id number] #### [facility] (DEFAULT) [address] [place] [address] 58822 Instr WBC 6.1 x10 Invalid Interpretation Code [facility] Comment on above: Performed By: #### 7 277475, [id number], [id number], [id number] #### [facility] (DEFAULT) [address] [place] [address] 70643 Man Diff? Auto Normal [facility] Comment on above: Performed By: #### 7 123890, [id number], [id number], [id number] #### [facility] (DEFAULT) [address] [place] [address] 36314 MCH (RBC) [Entitic mass] 29 pg Normal 24-34 [facility] Comment on above: Performed By: #### 7 413570, [id number], [id number], [id number] #### [facility] (DEFAULT) [address] [place] [address] MCHC (RBC) [Mass/Vol] 34 g/dL Normal 26-37 [facility] Comment on above: Performed By: #### 7 166909, [id number], [id number], [id number] #### [facility] (DEFAULT) [address] [place] [address] MCV (RBC) [Entitic vol] 87 fL Normal 81-100 [facility] Comment on above: Performed By: #### 7 631564, [id number], [id number], [id number] #### [facility] (DEFAULT) [address] [place] [address] Platelet 204 x10 Normal 138-427 [facility] Comment on above: Performed By: #### 7 441659, [id number], [id number], [id number] #### [facility] (DEFAULT) [address] [place] [address] Platelet mean volume (Bld) [Entitic vol] 9.6 fL Normal 6.3-10.2 [facility] Comment on above: Performed By: #### 7 692578, [id number], [id number], [id number] #### [facility] (DEFAULT) [address] [place] [address] RBC 4.25 x10 Normal 3.70-5.30 [facility] Comment on above: Performed By: #### 7 444105, [id number], [id number], [id number] #### [facility] (DEFAULT) [address] [place] [address] WBC 6.1 x10 Normal 3.5-10.5 [facility] Comment on above: Performed By: #### 7 186657, [id number], [id number], [id number] #### [facility] (DEFAULT) [address] [place] [address] CMP Standardon 10-11-2020 Albumin [Mass/Vol] 3.9 g/dL Normal 3.5-5.0 [facility] Comment on above: Performed By: #### 7 813955, [id number], [id number], [id number] ####[facility] (DEFAULT)[address] [place] [address] 79951 Albumin/Globulin [Mass ratio] 1.3 {ratio} Low 1.4-2.6 [facility] Comment on above: Performed By: #### 7 016000, [id number], [id number], [id number] ####[facility] (DEFAULT)[address] [place] [address] 44321 Alk Phos 67 IU/L Normal 32-91 [facility] Comment on above: Performed By: #### 7 423202, [id number], 62563884, [id number] ####[facility] (DEFAULT)[address] [place] [address] 55516 ALT [Catalytic activity/Vol] 28.0 U/L Normal 14.0-54.0 [facility] Comment on above: Performed By: #### 7 798404, [id number], 68269495, [id number] ####[facility] (DEFAULT)[address] [place] [address] 98879 Anion gap [Moles/Vol] 14.0 mmol/L Normal 5.0-19.0 [facility] Comment on above: Performed By: #### 7 391501, [id number], 68815779, [id number] ####[facility] (DEFAULT)[address] [place] [address] 97421 AST [Catalytic activity/Vol] 16 U/L Normal 15-41 [facility] Comment on above: Performed By: #### 7 411561, [id number], [id number], [id number] ####[facility] (DEFAULT)[address] [place] [address] Bili Total 0.3 mg/dL Normal 0.3-1.2 [facility] Comment on above: Performed By: #### 7 000018, [id number], [id number], [id number] ####[facility] (DEFAULT)[address] [place] [address] 43625 Calcium [Mass/Vol] 9.0 mg/dL Normal 8.9-10.3 [facility] Comment on above: Performed By: #### 7 [id number], [id number], [id number], [id number] ####[facility] (DEFAULT)[address] [place] [address] 53532 Chloride [Moles/Vol] 109 mmol/L Normal 101-111 [facility] Comment on above: Performed By: #### 7 [id number], [id number], [id number], [id number] ####[facility] (DEFAULT)[address] [place] [address] 50987 CO2 [Moles/Vol] 21 mmol/L Normal 21-32 [facility] Comment on above: Performed By: #### 7 742917, [id number], [id number], [id number] ####[facility] (DEFAULT)[address] [place] [address] 31329 Creatinine [Mass/Vol] 0.90 mg/dL Normal 0.60-1.30 [facility] Comment on above: Performed By: #### 7 [id number], [id number], [id number], [id number] ####[facility] (DEFAULT)[address] [place] [address] 98015 Globulin (S) [Mass/Vol] 3.1 g/dL Normal 1.5-4.3 [facility] Comment on above: Performed By: #### 7 576651, [id number], [id number], [id number] ####[facility] (DEFAULT)[address] [place] [address] 96034 Glucose [Mass/Vol] 95.0 mg/dL Normal 74.0-118.0 [facility] Comment on above: Performed By: #### 7 033006, [id number], [id number], [id number] ####[facility] (DEFAULT)[address] [place] [address] 07955 Osmolality 282 mOsm/L Invalid Interpretation Code [facility] Comment on above: Performed By: #### 7 [id number], [id number], [id number], [id number] ####[facility] (DEFAULT)[address] [place] [address] 77749 Potassium [Moles/Vol] 4.0 mmol/L Normal 3.6-5.1 [facility] Comment on above: Performed By: #### 7 133745, [id number], [id number], [id number] ####[facility] (DEFAULT)[address] [place] [address] 69495 Protein [Mass/Vol] 7.0 g/dL Normal 6.5-8.1 [facility] Comment on above: Performed By: #### 7 880867, [id number], [id number], [id number] ####[facility] (DEFAULT)[address] [place] [address] 20723 Sodium [Moles/Vol] 140.0 mmol/L Normal 136.0-144.0 [facility] Comment on above: Performed By: #### 7 423213, [id number], [id number], [id number] ####[facility] (DEFAULT)[address] [place] [address] 17901 Urea nitrogen [Mass/Vol] 20 mg/dL Normal 8-26 [facility] Comment on above: Performed By: #### 7 003763, [id number], [id number], [id number] ####[facility] (DEFAULT)[address] [place] [address] 75412 Urea nitrogen/Creatinine [Mass ratio] 22.2 mg/mg High 4.6-16.2 [facility] Comment on above: Performed By: #### 7 [id number], [id number], [id number], [id number] ####[facility] (DEFAULT)[address] [place] [address] 70879 Discharge Instructionson Discharge Instructions [id number] TIFF Normal [facility] ED Clinical Summaryon 2020 ED Clinical Summary [facility] - Emergency Department [address] [place] [address] ED Clinical Summary PERSON INFORMATION Name: YANI WOODY Age: 30 Years Sex: FEMALE : 1990 MRN: Acct#: Visit Reason: Pelvic pain; PELVIC AREA PAIN Arrival: 10/11/2020 09:15:57 Discharge: 10/11/2020 12:33:00 LOS: 000 03:18 Check In: 10/11/2020 09:15:57 Checkout:10/11/2020 12:33:00 Address: [address] [place] [address] PCP: Provider, None PROVIDER INFORMATION Provider Role Assigned Unassigned DAVID GALVAN ED PA 10/11/2020 09:24:51 Linn Decker SAFE TECHNICIAN Nurse 10/11/2020 09:28:06 Kristi Case SAFE TECHNICIAN Nurse 10/11/2020 11:45:12 VITALS INFORMATION Vital Sign [...] test which were negative. She contacted her manager ent who indicated he could not see her [...] - pharynx pink and moist. NECK: -Supple ([id number]): non-tender. CARD: -Rate and rhythm: Regular -Edema: No -Calf pain: No RESP: -Respiratory effort and chest excursion with respirations: Normal -Breath sounds equal bilaterally: Clear -Wheezes: No -Rales: No BACK: -Signs of pain with movement: No ABD: -Distended: No -Bruits: No -Bowel sounds: Normal. -Deep palpation: Non-tender, soft, no guarding or r (more content not included)... Normal [facility] ED Note - Physicianon 2020 ED Note [...] test which were negative. She contacted her manager ent who indicated he could not see her [...] - pharynx pink and moist. NECK: -Supple ([id number]-di-[id number]): non-tender. CARD: -Rate and rhythm: Regular -Edema: [...] I r (more content not included)... Normal [facility] ED Note-Nursingon 10-11-2020 ED Note-Nursing [facility] via private car with c/o [...] within reach. Will continue to monitor. Normal [facility] ED Patient Summaryon 021 ED Patient Summary [facility] - Emergency Department [address] [place] [address] PATIENT DISCHARGE INSTRUCTIONS Patient Information Name: YANI WOODY Age: 30 Years Date of : 1990 Reason For Visit: Pelvic pain; PELVIC AREA PAIN Arrival Time: 10/11/2020 09:15:57 Primary Care Physician: Provider, None Attending Physician: Linus Neumann MD Comment: Visit Diagnosis: Diagnoses This Visit Ovarian cyst (N83.209) Pelvic congestion syndrome (N94.89) Pelvic pain ([id number] -[id number]) Prescription Information: If you have been given a prescription for narcotics, seek immediate medical attention if you have any difficulty breathing or any sudden status changes such as confusion and sleepiness. If you or anyone you know is experiencing suicidal thoughts, mental health, alcohol and/or drug addiction problems; contact the [facility] 13/11 Crisis Hotline -Text 4HJYT pk 987790. If you received any narcotics, sedation, or [...] documents With: Address: When: Cordelia Rowan [address] [place] [address] Business (1) Within 2 to 4 days Comments: Follow-up with manager ent in the next few days for reevaluation. Return at anytime for reevaluation or if you have worsening symptoms, vaginal bleeding, chest pains, shortness of breath or any other problems. Continue to stay hydrated. Medication Information: The exam and treatment you received today in the [facility] were for an urgent problem and are not intended as complete care. It is important for you to follow up with a doctor, nurse practitioner, or physician?s aquatics assistant department head for ongoing care. If your symptoms become [...] so we can reach you if necessary. [facility] Emergency Department has provided you with a complete list of medications post discharge. Please inform your dredge operator/provider of your visit and for further instruction [...] (Inserted Image. Unabl (more content not included)... [facility] Extra Greenon 10-11-2020 Tube Collected Yes Invalid Interpretation Code [facility] Comment on above: Performed By: #### 7 [id number], [id number], [id number], [id number] #### [facility] (DEFAULT) [address] [place] [address] 59672 Lactic Acidon 10-11-2020 Lactic Acid 12.4 mg/dL Normal 4.5-19.8 [facility] Comment on above: Performed By: #### 2 [id number] ####[facility] (DEFAULT)[address] [place] [address] 84149 Test Urine 1on U Preg Negative [facility] Comment on above: Performed By: #### 3 [id number] ####[facility] (DEFAULT)[address] [place] [address] 00701 U Preg Internal Control Pass [facility] Comment on above: Performed By: #### 3 [id number] ####[facility] (DEFAULT)[address] [place] [address] 34913 UA [id number] 10-11-2020 UA Bacteria Rare [facility] Comment on above: Performed By: #### 2 [id number], [id number] ####[facility] (DEFAULT)[address] [place] [address] 59981 UA RBC 0-2 Normal [facility] Comment on above: Performed By: #### 2 [id number], [id number] ####[facility] (DEFAULT)[address] [place] [address] 69304 UA Squam Epi Few Normal [facility] Comment on above: Performed By: #### 2 [id number], [id number] ####[facility] (DEFAULT)[address] [place] [address] 30644 UA WBC 0-2 [facility] Comment on above: Performed By: #### 2 [id number], [id number] ####[facility] (DEFAULT)[address] [place] [address] UA w Micro, if Ind Standardo n 10-11-2020 Micro? Indicated Normal [facility] Comment on above: Performed By: #### 2 [id number], [id number] ####[facility] (DEFAULT)[address] [place] [address] Breakpoint UA [facility] Comment on above: Performed By: #### 2 [id number], [id number] ####[facility] (DEFAULT)[address] [place] [address] Color (U) Yellow Normal [facility] Comment on above: Performed By: #### 2 [id number], [id number] ####[facility] (DEFAULT)[address] [place] [address]408 Glucose (U) [Mass/Vol] Negative [facility] Comment on above: Performed By: #### 2 [id number], [id number] ####[facility] (DEFAULT)[address] [place] [address] 92970 Ketones Ql (U) Negative [facility] Comment on above: Performed By: #### 2 [id number], [id number] ####[facility] (DEFAULT)[address] [place] [address] 62580 UA Bilirubin Negative Normal [facility] Comment on above: Performed By: #### 2 [id number], [id number] ####[facility] (DEFAULT)[address] [place] [address] 04049 UA Blood TRACE Abnormal NEGATIVE [facility] Comment on above: Performed By: #### 2 [id number], [id number] ####[facility] (DEFAULT)[address] [place] [address]1950 UA Clarity CLEAR Normal CLEAR [facility] Comment on above: Performed By: #### 2 [id number], [id number] ####[facility] (DEFAULT)[address] [place] [address] 24820 UA Leuk Est Negative Normal NEGATIVE [facility] Comment on above: Performed By: #### 2 [id number], [id number] ####[facility] (DEFAULT)[address] [place] [address] 60681 UA Nitrite Negative Normal NEGATIVE [facility] Comment on above: Performed By: #### 2 [id number], [id number] ####[facility] (DEFAULT)[address] [place] [address] 54442 UA pH 6.0 Normal 5-8 [facility] Comment on above: Performed By: #### 2 [id number], [id number] ####[facility] (DEFAULT)[address] [place] [address] 66708 UA Protein Negative Normal [facility] Comment on above: Performed By: #### 2 [id number], [id number] ####[facility] (DEFAULT)[address] [place] [address] 57416 UA Spec Grav 1.025 Normal 1.001-1.035 [facility] Comment on above: Performed By: #### 2 [id number], [id number] ####[facility] (DEFAULT)[address] [place] [address] 09239 UA Urobilinogen 0.2 mg/dL Normal 0.2-1.0 [facility] Comment on above: Performed By: #### 2 [id number], [id number] ####[facility] (DEFAULT)[address] [place] [address] 53238 Urine Source Clean Catch Normal [facility] Comment on above: Performed By: #### 2 [id number], [id number] ####[facility] (DEFAULT)[address] [place] [address] US Pelvis Non-OB Completeon 10-11-2020 US Pelvis [...] MD 10/11/20 12:29 p Technologist: PM Normal [facility] US Transvaginalon 10-11-2020 US Transvaginal US Pelvis [...] Dominguez MD 10/11/20 12:29 p Technologist: PM [facility] Video Visit - Telehealtho n 01-28-2020 Video Visit - Telehealth Chief Complaint Medication follow up via Sojeans video Subjective Interval History/HPI This visit was conducted via two-way, real-time interactive video communications from my office using [employer] due to the restrictions of the COVID-19 pandemic. No physical exam was conducted other than those areas of the body visible to telecommunications with the patient located at [address] [place] [phone], with no one else in attendance. If [...] # 42 tab(s), Refills(s) 5, Pharmacy: [facility]/pharmacy #[id number], 156, cm, 01/28/20 8:32:00 EDT, Height/Length Dosing, 124, kg, 01/28/20 8:32:00 EDT, Weight Dosing 3. High risk medication use (Z79.899: Other buttermaker (current) drug therapy) Orders: lamotrigine, 300 mg = 2 tab(s), Oral, Bedtime, # 60 tab(s), Refills(s) 5, Pharmacy: [facility]/pharmacy #[id number], 156, cm, 01/28/20 8:32:00 EDT, Height/Length Dosing, 124, kg, 01/28/20 8:32:00 EDT, Weight Dosing lurasidone, 60 mg = 1 tab(s), Oral, Daily, @supper with food, # 30 tab(s), Refills(s) 5, Pharmacy: [facility]/pharmacy #[id number], 156, cm, 01/28/20 8:32:00 EDT, Height/Length Dosing, 124, kg, 01/28/20 8:32:00 EDT, Weight Dosing metformin, 500 mg = 1 tab(s), Oral, BID, # 60 tab(s), Refills(s) 5, Pharmacy: [facility]/pharmacy #[id number], 156, cm, 01/28/20 8:32:00 EDT, Height/Length Dosing, 124, kg, 01/28/20 8:32:00 EDT, Weight Dosing General Treatment Plan Pharmacological management: Alternative medication plans were discussed with the patient/guardian. All relevant side effects and potenti (more content not included)... Normal [facility] Comment on above: Result Comment: Elec tronically Signed By: TERE TENORIO, Leiaender\.br\Date and Time Signed: 01/28/20 09:14 EDT Vital Signs Date Time Vital Sign Value Performing Clinician Facility 12-17-2023 13:04-0400 Body height 152.4 cm [facility] 12-17-2023 13:04-0400 Body mass index (BMI) [Ratio] 59.5 kg/m2 [facility] 12-17-2023 13:04-0400 Body temperature 97.5 [degF] [facility] 12-17-2023 13:04-0400 Body weight 138.4 kg [facility] 12-17-2023 13:04-0400 Diastolic blood pressure 68 mm[Hg] [facility] 12-17-2023 13:04-0400 Heart rate 92 /min [facility] 12-17-2023 13:04-0400 Respiratory rate 18 /min [facility] 12-17-2023 13:04-0400 SaO2% (BldA) [Mass fraction] 95 % [facility] 12-17-2023 13:04-0400 Systolic blood pressure 125 mm[Hg] [facility] 06-29-2023 11:10-0500 Body height 154.9 cm Lindseyangel Mcmahon ENTERPRISE SALES PERSON-DIRECTOR OF COUNTERINTELLIGENCE Work Phone: [facility] 06-29-2023 11:10-0500 Body mass index (BMI) [Ratio] 56.08 kg/m2 Lindseyangel Mcmahon ENTERPRISE SALES PERSON-DIRECTOR OF COUNTERINTELLIGENCE Work Phone: [facility] 06-29-2023 11:10-0500 Body weight 134.54 kg Lindsey Kredorys ENTERPRISE SALES PERSON-DIRECTOR OF COUNTERINTELLIGENCE Work Phone: [facility] 06-29-2023 11:10-0500 Diastolic blood pressure 84 mm[Hg] Lindsey Mcmahon ENTERPRISE SALES PERSON-DIRECTOR OF COUNTERINTELLIGENCE Work Phone: [facility] emoquo [facility] 06-29-2023 11:10-0500 Heart rate 93 /min Lindsey Mcmahon APRN-DIRECTOR OF COUNTERINTELLIGENCE Work Phone: [facility] 06-29-2023 11:10-0500 SaO2% (BldA) [Mass fraction] 95 % Lindsey Mcmahon APRN-DIRECTOR OF COUNTERINTELLIGENCE Work Phone: [facility] 06-29-2023 11:10-0500 Systolic blood pressure 152 mm[Hg] Lindsey Mcmahon ENTERPRISE SALES PERSON-DIRECTOR OF COUNTERINTELLIGENCE Work Phone: [facility] 05-03-2023 13:16-0500 Body mass index (BMI) [Ratio] 54.61 kg/m2 Katerin Haynes ENTERPRISE SALES PERSON-DIRECTOR OF COUNTERINTELLIGENCE Work Phone: [facility] 05-03-2023 13:16-0500 Body weight 131.09 kg Katerin Haynes ENTERPRISE SALES PERSON-DIRECTOR OF COUNTERINTELLIGENCE Work Phone: [facility] 05-03-2023 13:16-0500 Diastolic blood pressure 74 mm[Hg] Katerin Haynes ENTERPRISE SALES PERSON-DIRECTOR OF COUNTERINTELLIGENCE Work Phone: [facility] [employer] [facility] 05-03-2023 13:16-0500 Heart rate 88 /min Katerin Haynes ENTERPRISE SALES PERSON-DIRECTOR OF COUNTERINTELLIGENCE Work Phone: [facility] [employer] [facility] 05-03-2023 13:16-0500 Respiratory rate 18 /min Katerin Haynes ENTERPRISE SALES PERSON-DIRECTOR OF COUNTERINTELLIGENCE Work Phone: [facility] 05-03-2023 13:16-0500 SaO2% (BldA) [Mass fraction] 98 % Katerin Haynes ENTERPRISE SALES PERSON-DIRECTOR OF COUNTERINTELLIGENCE Work Phone: [facility] 05-03-2023 13:16-0500 Systolic blood pressure 126 mm[Hg] Katerin Haynes ENTERPRISE SALES PERSON-DIRECTOR OF COUNTERINTELLIGENCE Work Phone: [facility] 02-05-2023 09:45-0400 Body height 154.94 cm Jovita Murcia Other [facility] Other 02-05-2023 09:45-0400 Body mass index (BMI) [Ratio] 57.32 kg/m2 Jovita Murcia Other [facility] Other 02-05-2023 09:45-0400 Body temperature 98 [degF] Jovita Murcia Other [facility] Other 02-05-2023 09:45-0400 Body weight 137.62 kg Jovita Murcia Other [facility] Other 02-05-2023 09:45-0400 Respiratory rate 18 /min Jovita Murcia Other [facility] Other 02-05-2023 09:45-0400 SaO2% (BldA) [Mass fraction] 97 % Jovita Murcia Other [facility] Other 12-22-2022 09:30-0400 Diastolic blood pressure 96 mm[Hg] MD Aline Villalobos Work Phone: [facility] 12-22-2022 09:30-0400 Heart rate 60 /min MD Aline Villalobos Work Phone: [facility] 12-22-2022 09:30-0400 Respiratory rate 16 /min MD Aline Villalobos Work Phone: [facility] 12-22-2022 09:30-0400 SaO2% (BldA) [Mass fraction] 99 % MD Aline Villalobos Work Phone: [facility] 12-22-2022 09:30-0400 Systolic blood pressure 154 mm[Hg] MD Aline Villalobos Work Phone: [facility] 12-22-2022 08:06-0400 Body height 152.4 cm MD Aline Villalobos Work Phone: [facility] 12-22-2022 08:06-0400 Body weight 137.89 kg MD Aline Villalobos Work Phone: [facility] 07-22-2022 11:35-0400 Respiratory rate 18 /min Inge Mojicaza DO Work Phone: [facility] 07-22-2022 08:00-0400 Body temperature 99 [degF] Inge Mojicaza DO Work Phone: [facility] 07-22-2022 08:00-0400 Diastolic blood pressure 63 mm[Hg] Inge Causeyazza DO Work Phone: [facility] 07-22-2022 08:00-0400 Heart rate 78 /min Inge Mojicaza DO Work Phone: [facility] 07-22-2022 08:00-0400 SaO2% (BldA) [Mass fraction] 99 % Inge Mojicaza DO Work Phone: [facility] 07-22-2022 08:00-0400 Systolic blood pressure 137 mm[Hg] Inge Causeyazza DO Work Phone: [facility] 07-18-2022 17:35-0400 Body height 154.94 cm Alesha Cortez Other [facility] Other 07-18-2022 17:35-0400 Body mass index (BMI) [Ratio] 62.16 kg/m2 Alesha Cortez Other [facility] Other 07-18-2022 17:35-0400 Body temperature 96 [degF] Alesha Cortez Other [facility] Other 07-18-2022 17:35-0400 Body weight 149.23 kg Alesha Cortez Other [facility] Other 07-18-2022 17:35-0400 Respiratory rate 18 /min Alesha Cortez Other [facility] Other 07-18-2022 17:35-0400 SaO2% (BldA) [Mass fraction] 97 % Alesha Cortez Other [facility] Other 07-15-2022 17:16-0400 Diastolic blood pressure 83 mm[Hg] Inge Causeyazza DO Work Phone: [facility] 07-15-2022 17:16-0400 Heart rate 97 /min Inge Causeyazza DO Work Phone: [facility] 07-15-2022 17:16-0400 Respiratory rate 16 /min Inge Causeyazza DO Work Phone: [facility] 07-15-2022 17:16-0400 Systolic blood pressure 142 mm[Hg] Inge Piazza DO Work Phone: [facility] 07-15-2022 15:44-0400 Body temperature 98.49 [degF] Inge Causeyazza DO Work Phone: [facility] 03-21-2022 10:30-0500 Body height 154.94 cm Naga Wells Other [facility] Other 03-08-2022 02:06-0500 Body weight 141.0696 kg LILIA RUIZ [facility] Comment on above: Performed By: #### DAPHNE TOBIAS #### [facility] [address] [place] [address] Dr. Valeria Farris Encounters Encounter Date Encounter Type Care Provider Facility Start: 01-03-2024 End: 01-03-2024 ambulatory NOAH PETERSON Not Available Start: 12-31-2023 End: 12-31-2023 ambulatory CLAUDIA VILLAR [facility] Start: 12-29-2023 End: 12-29-2023 Emergency department patient visit CHAS BALDERAS [facility] Start: 12-17-2023 End: 12-17-2023 ambulatory [facility] Work Phone: Start: 12-17-2023 End: 12-17-2023 Patient encounter procedure [facility] Work Phone: Start: 12-17-2023 End: 12-17-2023 ambulatory NOAH NICHOLAS Not Available Start: 12-06-2023 End: 12-06-2023 ambulatory [facility] Start: 11-29-2023 End: 11-29-2023 ambulatory NOAH NICHOLAS Not Available Start: 11-12-2023 End: 11-12-2023 ambulatory CHARMAINE HAIRSTON Not Available Start: 11-08-2023 End: 11-08-2023 ambulatory [facility] Start: 10-29-2023 End: 10-29-2023 ambulatory NOAH NICHOLAS Not Available Start: 10-11-2023 End: 10-11-2023 ambulatory NOAH NICHOLAS Not Available Start: 10-09-2023 End: 10-09-2023 ambulatory [facility] Start: 09-11-2023 End: 09-11-2023 ambulatory NOAH NICHOLAS Not Available Start: 09-10-2023 End: 09-11-2023 Emergency department patient visit MANUEL GODINEZ [facility] Start: 08-28-2023 End: 08-28-2023 Emergency department patient visit CHAS BALDERAS [facility] Start: 08-24-2023 End: 08-24-2023 ambulatory CHAS BALDERAS Not Available Start: 08-14-2023 End: 08-14-2023 ambulatory NOAH NICHOLAS Not Available Start: 07-19-2023 End: 07-19-2023 ambulatory CHARMAINE HAIRSTON Not Available Start: 07-02-2023 Telephone encounter Lindsey philip ENTERPRISE SALES PERSON-DIRECTOR OF COUNTERINTELLIGENCE Work Phone: [facility] Comment on above: Sleep Lab (PSG) Start: 06-29-2023 End: 06-29-2023 ambulatory [facility] Deanna [facility] Start: 06-29-2023 End: 06-29-2023 Office outpatient new 45 minutes Lindsey Deanna Mcmahon ENTERPRISE SALES PERSON-DIRECTOR OF COUNTERINTELLIGENCE Work Phone: [facility] Comment on above: MOLINA (obstructive sle ep apnea) (Primary Dx); Morning headache; Memory loss; Fatigue, unspecified type; Snoring Start: 06-24-2023 Refill Katerin grewal ENTERPRISE SALES PERSON-DIRECTOR OF COUNTERINTELLIGENCE Work Phone: [facility] Start: 06-14-2023 End: 06-14-2023 ambulatory RAZIA MULLER [facility] Start: 06-06-2023 Refill Katerin grewal ENTERPRISE SALES PERSON-DIRECTOR OF COUNTERINTELLIGENCE Work Phone: [facility] Start: 06-05-2023 Orders Only Sadaf Louis [facility] Comment on above: Low back pain, unspe cified back pain laterality, unspecified chronicity, unspecified whether sciatica present (Primary Dx) Start: 05-29-2023 Telephone encounter Orders Sup port User Transcribe [facility] Comment on above: Sleep Lab Start: 05-22-2023 End: 05-22-2023 ambulatory CHAS BALDERAS Not Available Start: 05-16-2023 End: 05-17-2023 Emergency department patient visit LINA HUGHES [facility] Start: 05-15-2023 End: 05-15-2023 ambulatory NOAH PETERSON Not Available Start: 05-03-2023 End: 05-03-2023 ambulatory [facility] Start: 05-03-2023 End: 05-03-2023 Office outpatient visit 15 minutes Katerin Haynes ENTERPRISE SALES PERSON-DIRECTOR OF COUNTERINTELLIGENCE Work Phone: [facility] Comment on above: Acute non-recurrent maxillary sinusitis (Primary Dx) Start: 04-19-2023 End: 04-19-2023 ambulatory CHARMAINE HAIRSTON Not Available Start: 02-05-2023 End: 02-05-2023 ambulatory Jovita Murcia Other [facility] Other Start: 02-05-2023 Office outpatient vi sit 15 minutes Jovita Murcia [facility] Start: 12-22-2022 End: 12-22-2022 ambulatory Aline Villalobos Facility:[facility] Start: 12-22-2022 End: 12-22-2022 ambulatory MD Aline Villalobos Work Phone: [facility] Work Phone: Start: 12-22-2022 End: 12-22-2022 Patient encounter procedure MD Aline Villalobos Work Phone: [facility] [place] Work Phone: Start: 12-20-2022 End: 12-20-2022 ambulatory Aline Villalobos Facility:[facility] Start: 12-20-2022 End: 12-20-2022 ambulatory MD Aline Villalobos Work Phone: [facility] Work Phone: Start: 12-20-2022 End: 12-20-2022 Patient encounter procedure MD Aline Villalobos Work Phone: [facility] [place] Work Phone: Start: 09-04-2022 ambulatory RAYSA LINN [...] 07-18-2022 End: 07-18-2022 ambulatory Alesha Cortez Other [facility] Other Start: 07-18-2022 Office outpatient vi sit [...] 03-21-2022 End: 03-21-2022 ambulatory N[place] Wells Other [facility] Other Start: 03-21-2022 Office outpatient ne w 30 minutes Naga Wells [facility] Start: 03-19-2022 End: 03-19-2022 ambulatory LILIA RUIZ Facility:[facility] Start: 03-15-2022 End: 03-16-[address] NOAH PETERSON Facility:[facility] Start: 03-03-2022 End: 03-04-[address] NOAH PETERSON Facility:[facility] Start: 02-27-2022 Blood pressure taking Jovita groves Other [facility] Other Start: 01-09-2022 End: 01-10-[address] [...] abnormal cervical Papanicolaou smear Jovita Murcia Other [facility] Other Start: 01-30-2018 End: 01-31-2018 Patient encounter DEFAULT PHYSICIAN Facility:[facility] Procedures Date Procedure Procedure Detail Performing Clinician Start: 12-22-2022 Investigation of transfusion reaction MD Aline Villalobos Work Phone: Start: 07-22-2022 Glucose blood reagent strip Hitesh A Comerío DO Work Phone: Start: 07-21-2022 Glucose blood reagent strip Hitesh A Comerío DO Work Phone: Start: 07-21-2022 Glucose blood reagent strip Hitesh A Comerío DO Work Phone: Start: 07-21-2022 Glucose blood reagent strip Hitesh A Comerío DO Work Phone: Start: 07-21-2022 Blood count [...] by Cyto stain Katerin Haynes APRN-DIRECTOR OF COUNTERINTELLIGENCE Work Phone: Start: 12-28-2021 Diabetes mellitus screening Jovita Murcia Other Start: 11-30-2021 Adult depression scr eening assessment Katerin Haynes APRN-DIRECTOR OF COUNTERINTELLIGENCE Work Phone: End: 04-13-2021 screening Jovita Murcia Other End: 07-27-2021 screening Jovita Murcia Other Counseling Jovita Murcia Other Depression screening Jovita Murcia Other visit Jovita watkins Other Plan of Treatment Date Care Activity Detail Author Start: 12-21-2029 DTaP,Tdap and Td Vaccines (7 - Td or Tdap) DTaP,Tdap and Td Vaccines (7 - Td or Tdap) [facility] Start: 12-21-2029 DTaP/Tdap/Td vaccine (7 - Td or Tdap) DTaP/Tdap/Td vaccine (7 - Td or Tdap) [facility] Start: 05-29-2025 Screening for malign ant neoplasm of cervix Pap Smear [facility] Start: 06-28-2024 Adult BMI Screening Adult BMI Screen ing [facility] Start: 06-28-2024 Tobacco Screening Tobacco Screening [facility] Start: 06-13-2024 Adult BMI Screening Adult BMI Screen ing [facility] Start: 05-16-2024 Adult BMI Screening Adult BMI Screen ing [facility] Start: 05-16-2024 Tobacco Screening Tobacco Screening [facility] Start: 05-03-2024 Adult BMI Follow Up Plan Adult BMI Follow Up Plan [facility] Start: 05-03-2024 Adult BMI Screening Adult BMI Screen ing [facility] Start: 05-03-2024 Tobacco Screening Tobacco Screening [facility] Start: 03-12-2024 Adult BMI Follow Up Plan Adult BMI Follow Up Plan [facility] Start: 01-09-2024 End: 01-09-2024 Patient encounter procedure 01/09/2024 9:00 AM EDT Office Visit [facility] [address] [place] [address] Lindsey Mcmahon, ENTERPRISE SALES PERSON-DIRECTOR OF COUNTERINTELLIGENCE [address] [address] [facility] Start: 10-23-2023 End: 10-23-2023 Clinical Support 10/23/2023 8:00 PM EDT Clinical Support [facility] [address] [address] [facility] Start: 07-11-2023 End: 07-11-2023 Patient encounter procedure 07/11/2023 10:00 AM EDT Office Visit [facility] [address] [place] [address] Lindsey Mcmahon, ENTERPRISE SALES PERSON-DIRECTOR OF COUNTERINTELLIGENCE [address] [address] [facility] Start: 06-25-2023 End: 06-25-2023 Patient encounter procedure 06/25/2023 10:30 AM EST Office Visit [facility] [address] [place] [address] Terese Valladares ENTERPRISE SALES PERSON-DIRECTOR OF COUNTERINTELLIGENCE [address] [address] [facility] Start: 06-14-2023 End: 06-14-2023 Patient encounter procedure 06/14/2023 8:15 AM EST Appointment [facility] [address] [place] [id number] [facility] Start: 06-05-2023 End: [...] Office Visit [facility] [address] [place] [phone] Katerin Haynes, ENTERPRISE SALES PERSON-DIRECTOR OF COUNTERINTELLIGENCE [address] [place], [place] [id number] [facility] Start: 05-28-2023 End: 05-28-2023 Patient encounter procedure 05/28/2023 9:30 AM EST Office Visit [facility] [address] [place] [phone] Terese Valladares, ENTERPRISE SALES PERSON-DIRECTOR OF COUNTERINTELLIGENCE [address] [facility] [address] [place] [address] [facility] Start: 05-18-2023 Hemoglobin A1c measurement A1C test (Diabetic or Prediabetic) [facility] Start: 12-22-2022 COVID-19 Vaccine ( season) COVID-19 Vaccine ( season) [facility] Start: 12-22-2022 Influenza vaccination Influenza Vacc ine [facility] Start: 12-22-2022 Cerebrospinal fluid culture [facility] Start: 12-22-2022 End: 12-22-2022 [facility] Start: 11-30-2022 Depression Screening Depression Scre jaimie [facility] Start: 11-21-2022 Influenza vaccination Flu vacc ine (Season Ended) [facility] Start: 07-20-2022 End: 07-20-2022 Patient encounter procedure 07/20/2022 Routine Perinatology [facility] Start: 07-13-2022 End: 07-13-2022 Patient encounter procedure 07/13/2022 Routine Perinatology [facility] Start: 07-06-2022 End: 07-06-2022 Patient encounter procedure 07/06/2022 Routine Perinatology [facility] Start: 02-05-2022 Screening for malign ant neoplasm of cervix [facility] Start: 11-21-2021 Influenza vaccination Flu vaccine (# 1) [facility] Start: 01-21-2021 COVID-19 Vaccine (2 - Booster for Hipolito series) COVID-19 Vaccine (2 - Booster for Hipolito series) [facility] Start: 02-05-2013 Screening for malign ant neoplasm of cervix Pap smear [facility] Start: 02-05-2010 Hepatitis C screening Hepatitis C sc reen [facility] Start: 02-05-2007 HIV screening HIV screen [facility] Start: 2004 Depression Screen Depression Screen [facility] Start: 02-05-2002 Lipid panel Lipids [facility] Start: 02-05-1998 Pneumococcal 0-64 ye ars Vaccine (1 - PCV) Pneumococcal 0-64 years Vaccine (1 - PCV) [facility] Start: 02-05-1993 Varicella vaccine (1 of 2 - 2-dose childhood series) Varicella vaccine (1 of 2 - 2-dose childhood series) [facility] Bacteria identified in Unspecified specimen by Aerobe culture [facility] Bacteria identified in Unspecified specimen by Anaerobe culture [facility] End: 07-15-2022 COVID-19, Rapid COVID-19, Rapid Microbiology STAT One Time for 1 Occurrences starting 07/15/2022 until 07/15/2022 [facility] Phone: Comment on above: One Time for 1 Occur rences starting 07/15/2022 until 07/15/2022 CT CHEST PULMONARY EMBOLISM W CONTRAST CT CHEST PULMONARY EMBOLISM W CONTRAST Imaging STAT 07/15/2022 5:48 PM EDT [facility] [employer] Phone: Culture, Strep B Scr een, Vaginal/Rectal Culture, Strep B Screen, Vaginal/Rectal Microbiology [employer] Label Print 07/20/2022 6:56 PM EDT [employer] Phone: EKG 12 Lead EKG 12 Lead ECG Routine 07/15/2022 4:23 AM EDT [employer] Phone: Glucose [Mass/volume ] in Serum or Plasma POCT glucose Point of Care Testing Routine 4X Daily (AC & HS) until discontinued starting 07/20/2022 [employer] Phone: Comment on above: 4X Daily (AC & HS) u ntil discontinued starting 07/20/2022 End: 07-15-2022 Hepatitis C Antibody [employer] Phone: Comment on above: One Time for 1 Occur rences starting 07/15/2022 until 07/15/2022 Meningitis+Encephali tis pathogens DNA and RNA panel - Cerebral spinal fluid by SARANYA with non-probe detection [facility] Microscopic observat ion [Identifier] in Unspecified specimen by Gram stain [facility] Nonrebreather mask oxygen Nonrebreather mask oxygen Respiratory Care Routine As directed - RT (PRN) until discontinued starting 07/15/2022 [employer] Phone: Comment on above: As directed - RT (RI N) until discontinued starting 07/15/2022 Oxygen therapy [[facility]] Initiate Oxygen Therapy Protocol Respiratory Care Routine Daily until discontinued starting 07/20/2022 [employer] Work Phone: Comment on above: Daily until disconti nued starting 07/20/2022 Patient Education [facility] Lumb ar Puncture Discharge Instructions [facility] Work Phone: PROFILE I PROF ILE I Lab [employer] Label Print 07/15/2022 4:12 PM EDT [employer] Phone: End: 06-28-2024 PSG Diagnostic [facility] Routine MOLINA (obstructive sleep apnea) 1 Occurrences starting 06/29/2023 until 06/28/2024 [employer] Work Phone: Comment on above: 1 Occurrences starti ng 06/29/2023 until 06/28/2024 End: 07-15-2022 RAPID INFLUENZA A/B ANTIGENS RAPID INFLUENZA A/B ANTIGENS Microbiology STAT One Time for 1 Occurrences starting 07/15/2022 until 07/15/2022 [employer] Phone: Comment on above: One Time for 1 Occur rences starting 07/15/2022 until 07/15/2022 End: 07-20-2022 Specimen hold [employer] Work Phone: Comment on above: Once for 1 Occurrenc es starting 07/20/2022 until 07/20/2022 End: 07-20-2022 Specimen to Pathology Specimen to Pathology Lab Routine One Time for 1 Occurrences starting 07/20/2022 until 07/20/2022 [employer] Phone: Comment on above: One Time for 1 Occur rences starting 07/20/2022 until 07/20/2022 Spirometry panel Incentive linda metry Respiratory Care Routine Every 2hr while awake until discontinued starting 07/20/2022 [employer] Phone: Comment on above: Every 2hr while awak e until discontinued starting 07/20/2022 End: 07-15-2022 Troponin I.cardiac [Mass/volume] in Serum or Plasma Troponin Lab STAT One Time for 1 Occurrences starting 07/15/2022 until 07/15/2022 [employer] Phone: Comment on above: One Time for 1 Occur rences starting 07/15/2022 until 07/15/2022 Immunizations Immunization Date Immunization Notes Care Provider Radha bowen 04-21-2014 influenza virus vaccine, unspecified formulation Katerin Haynes APRN-DIRECTOR OF COUNTERINTELLIGENCE Work Phone: [employer] NEGATED: Highlighted row has not occurred!07-22-2022 tetanus toxoid, reduced diphtheria toxoid, and acellular pertussis vaccine, adsorbed Inge Galinaza DO Work Phone: [facility] Payers Date Payer Category Payer Unknown 2022 Unknown [id number] 2022 Medicaid [id number] 2022 Medicaid [place] MED[place] [facility] [id number] 2022-Present [address] [place] [address] 1.2.840.871303.1.13.424.2. 7.3.543375.315 1992 Unknown [id number] 2.16.840.1.273665.3.579.2. 647 1992 Unknown [id number] 2.16.840.1.961443.3.579.2. 593 1992 Unknown [id number] 2.16.840.1.650703.3.579.2. 593 1992 Unknown [id number] 2.16.840.1.096111.3.579.2. 593 1992 Unknown [id number] 2.16.840.1.911498.3.579.2. 593 1992 Unknown [id number] 2.16.840.1.463293.3.579.2. 593 1992 Unknown [id number] 2.16.840.1.849037.3.579.2. 593 1992 Unknown [id number] 2.16.840.1.112246.3.579.2. 593 1992 Unknown [id number] 2.16.840.1.697258.3.579.2. 593 1992 Unknown [id number] 2.16.840.1.777589.3.579.2. 593 1992 Unknown [id number] 2.16.840.1.832887.3.579.2. 593 1992 Unknown [id number] 2.16.840.1.840113.3.579.2. 593 1992 Unknown [id number] 2.16.840.1.780244.3.579.2. 593 1992 Unknown [id number] 2.16.840.1.432836.3.579.2. 593 1992 Unknown [id number] 2.16.840.1.376890.3.579.2. 593 1992 Unknown [id number] 2.16.840.1.019479.3.579.2. 593 1992 Unknown [id number] 2.16.840.1.798626.3.579.2. 593 1992 Unknown [id number] 2.16.840.1.866058.3.579.2. 593 1992 Unknown [id number] 2.16.840.1.188938.3.579.2. 593 1992 Unknown [id number] 2.16.840.1.658269.3.579.2. 593 1992 Unknown [id number] 2.16.840.1.216976.3.579.2. 593 1992 Unknown [id number] 2.16.840.1.208836.3.579.2. 593 1992 Unknown [id number] 2.16.840.1.410975.3.579.2. 593 1992 Unknown [id number] 2.16.840.1.752295.3.579.2. 593 1992 Unknown [id number] 2.16.840.1.903124.3.579.2. 593 1992 Unknown [id number] 2.16.840.1.950495.3.579.2. 593 1992 Unknown [id number] 2.16.840.1.169912.3.579.2. 593 1992 Unknown [id number] 2.16.840.1.294401.3.579.2. 593 1992 Unknown [id number] 2.16.840.1.360578.3.579.2. 593 1992 Unknown [id number] 2.16.840.1.204869.3.579.2. 593 1992 Unknown [id number] 2.16.840.1.173509.3.579.2. 593 1992 Unknown [id number] 2.16.840.1.223941.3.579.2. 593 1992 Unknown [id number] 2.16.840.1.809286.3.579.2. 593 1992 Unknown [id number] 2.16.840.1.482414.3.579.2. 593 1992 Unknown [id number] 2.16.840.1.714853.3.579.2. 593 1992 Unknown [id number] 2.16.840.1.134053.3.579.2. 593 1992 Unknown [id number] 2.16.840.1.096864.3.579.2. 593 1992 Unknown [id number] 2.16.840.1.498910.3.579.2. 593 1992 Unknown [id number] 2.16.840.1.029040.3.579.2. 593 1992 Unknown [id number] 2.16.840.1.788296.3.579.2. 593 1992 Unknown [id number] 2.16.840.1.628313.3.579.2. 593 1992 Unknown [id number] 2.16.840.1.612274.3.579.2. 1286 1992 Unknown [id number] 2.16.840.1.553577.3.579.2. 1286 1992 Unknown [id number] 2.16.840.1.492064.3.579.2. 1286 1992 Unknown [id number] 2.16.840.1.585242.3.579.2. 128 1992 Unknown [id number] 2.16.840.1.914869.3.579.2. 128 1992 Unknown [id number] 2.16.840.1.042687.3.579.2. 128 1992 Unknown [id number] 2.16.840.1.995084.3.579.2. 128 1992 Unknown [id number] 2..840.1.090213.3.579.2. 128 1992 Unknown [id number] 2..840.1.274746.3.579.2. 1285 1992 Unknown [id number] 2..840.1.346986.3.579.2. 9 1992 Unknown [id number] 2..840.1.788539.3.579.2. 1258 1992 Unknown [id number] 2..840.1.735456.3.579.2. 9 1992 Unknown [id number] 2.16.840.1.397392.3.579.2. 1258 1992 Unknown [id number] 2.16.840.1.405845.3.579.2. 1259 1992 Unknown [id number] 2.16.840.1.903606.3.579.2. 1258 1992 Unknown [id number] 2.16.840.1.046390.3.579.2. 1258 1992 Unknown [id number] 2.16.840.1.786803.3.579.2. 1259 1992 Unknown [id number] 2.16.840.1.423178.3.579.2. 125 1992 Unknown [id number] 2.16.840.1.807202.3.579.2. 1259 1992 Unknown [id number] 2.16.840.1.108195.3.579.2. 1259 1992 Unknown [id number] 2.16.840.1.802235.3.579.2. 1259 1992 Unknown [id number] 2.16.840.1.828129.3.579.2. 1259 1992 Unknown [id number] 2.16.840.1.305725.3.579.2. 175 1992 Unknown [id number] 2.16.840.1.186661.3.579.2. 175 1992 Unknown [id number] 2.16.840.1.606839.3.579.2. 175 1992 Unknown [id number] 2.16.840.1.396028.3.579.2. 175 1959 Medicaid [id number] 1.2.840.585254.1.13.239.2. 7.3.868212.315 1959 Private Health Insurance [id number] 1.2.840.135643.1.13.239.2. 7.3.004546.315 1959 Self-pay 1959 Unknown [id number] 1959 Worker's Compensation [id number] 2.840.1.458686.19 Medicaid [place] Advantage [id number] Private Health Insurance [id number] .840.1.181919.19 Private Health Insurance [facility] [id number] Unknown [id number] 06.08.830.1.779462.19 Unknown [id number] 2.840.1.094869.3.579.2. 593 Unknown [id number] 2.16.840.1.631241.3.579.2. 531 Unknown [id number] 2.16.840.1.246785.3.579.2. 531 Social History Date Type Detail Facility Unknown if ever smoked [place] [facility] Other Start: 06-03-2020 End: 05-03-2023 Sex Assigned At [facility] Other Start: 06-22-2022 End: 06-29-2023 Tobacco smoking status NEIS Ex-smoker [facility] Start: 05-25-2020 End: 12-22-2022 History of tobacco use Current smoker [employer] Phone: End: 11-20-2017 History of tobacco use Cigarette Smoker [employer] Phone: Start: 06-22-2022 End: 06-29-2023 Tobacco use and exposure Smokeless tobacco non-user [employer] Phone: Start: 06-29-2022 End: 06-29-2023 Alcohol intake Ex-drinker (finding) [employer] Phone: Start: 06-22-2022 Tobacco Comment Quit in 201806/22/2022 [employer] Phone: Start: 11-20-2021 [employer] Phone: Start: 1990 Sex Assigned At Female [facility] Start: 07-10-2022 End: 07-20-2022 Exposure to SARS-CoV-2 (event) Not sure [employer] Phone: Start: 06-03-2020 End: 11-16-2022 Cigarettes smoked current (pack per day) - Reported 0.5 [employer] Ad[facility]io n [facility] Start: 11-30-2021 Education [facility] Start: 11-16-2022 Tobacco Comment quit in July [facility] Start: 05-16-2022 Gender identity Identifies as female gender (finding) [facility] Start: 05-25-2022 Sexual orientation Heterosexual (finding) [facility] Medical Equipment Procedure Code Equipment Code Equipment Origin al Text Equipment Identifier Dates BD ULTRA-FINE PE N NEEDLES 29G X 12.7MM [facility] [id number] Start: 04-03-2022 ONETOUCH ULTRA strip [id number] Star t: 06-11-2022 DROPLET PEN NEED LES 29G X 12MM MISC [id number] Start: 06-30-2022 Clinical Notes 01-28-2020 to 07-02-2023 Telephone Encounter - Christine Valladares - 07/02/2023 9:14 AM EDTTelephone Encounter - Christine Valladares - 07/02/2023 9:14 AM EDTSVANESA Krause - 06/29/2023 11:00 AM ESTPatient Instructions Note Date & Type Note Facility 07-02-2023 Miscellaneous Notes Formattin g of this note is different from the original. 06/28 order received Scheduled [facility] at [facility] on 10/23/23 Mychart confirmation [place] [employer] PSG order & 6 [place] notes in Epic With TCO2 monitoring. Please obtain baseline in supine position. documented in this encounter [facility] 07-02-2023 Telephone encount er Note 06/28 order received Scheduled [facility] at [facility] on 10/[facility]/23 Mychart confirmation [place] [employer] PSG order & 3/6 [place] notes in Epic With TCO2 monitoring. Please obtain baseline in supine position. [facility] 06-29-2023 History of Presen t illness [...] you wake up? 6-8 AM Number of jwhuea-ms-unl-night awakenings per night? 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 [...] and during sleep). CC: MD Lindsey CAMEJO [facility] Office: [phone] 11:18 AM on 06/29/2023 This note is dictated with the use of M*Modal.Please note that this dictation was completed with computer voice recognition software. Quite often unanticipated grammatical, syntax, homophones, and other interpretive errors are inadvertently transcribed by the computer software. Please disregard these errors. Please excuse any errors that have escaped final proofreading. VANESA Mendez 06/29/23 1125 documented in this encounter [facility] 06-29-2023 Instructions VANESA Mendez - 06/29/2023 11:00 AM EST If you re looking for general health and wellness resources, please visit [email or web address]. documented in this encounter [facility] 06-29-2023 Evaluation note Diagnosis MOLINA (obstructive sleep apnea)- Primary Obstructive sleep apnea (adult) (pediatric) Morning headache Memory loss Fatigue, unspecified type Snoring Other dyspnea and respiratory abnormality documented in this encounter [facility]2024 Miscellaneous Notes* Telephone Encounter - Ernestina Simpson - 05/29/2023 10:23 AM EST Pt called to schedule a sleep study or appointment with pulaquiles Dawn advised we have nothing as of now and either order is in her chart to schedule with gave her the number to sleep medicine in [place] [facility] Tele[facility] encounter Note* Telephone Encounter - Ernestina Simpson - 05/29/2023 10:23 AM EST Pt called to schedule a sleep study or appointment with collin Dawn advised we have nothing as of now and either order is in her chart to schedule with gave her the number to sleep medicine in [place] [facility]01-11-2024 History of Present illness Narrative* VANESA Frank - 05/03/2023 1:15 PM EST Images from the original note were not included. [address] [facility] [address] SUBJECTIVE: Patient ID: Yani Stevens is a [...] VANESA Frank 05/03/23 1330 documented in this encounterHock[facility] HospitalGeodelic Systems [facility] [id number] Evaluation note* Encounter Date Diagnosis Assessment Notes [...] not specified, unspecified location (ICD-10 - J01.90) [facility] Other 04-01-2023 History of Present illness Narrative* [...] patient Attending Physician: Dr. Fish Estrada MD Operations Asst Resident 07/22/2022, 12:40 AM Attending Physician Statement [...] patient Attending Physician: Dr. Betina Bush, DO Operations Asst Resident 07/21/2022, 3:02 AM Attending Physician Statement [...] MD 07/21/2022 10:00 AM [facility]: 1(627) 479-898103-30-2023 Evaluation note* Diagnosis RLTCS w/ IUD 07/20/22 [...] Chronic hypertension affecting documented in this encounter [facility] Phone: 1(736) 834-615103-28-2023 Evaluation note* Encounter Date Diagnosis Assessment Notes [...] other viral communicable diseases (ICD-10 - Z20.828) [facility] Other 11-29-2022 Evaluation note* Encounter Date Diagnosis [...] off of work. We will apply for [facility] approval for therapy. [facility] Other 06-21-2021 NoteEducation Materials Obstetrics and Gynecology [...] Follow these instructions at home: ? Take ekzy-rti-mqlhukh and prescription medicines only as told by [...] menstrual period is much (more content not included)...[facility] 01-28-2020 NoteOphthalmology Basics of Medication Management UNDERSTAND [...] caregiver questions about your prescriptions and any dhku-zzs-zeskcnn medications, vitamins, herbal or dietary supplements that [...] or pharm (more content not included)...[facility] Chief complaint+Reason for visit Narrative* Chief Complaint Congestion, fever Reason for Visit Contact with and (grimm spected) exposure to covid-[address] [facility] Work Phone: Evaluation note* Diagnosis 37 [...] condition or complication documented in this encounter [facility] Work Phone: evaluation noteNo assessment information available [facility] Work Phone: Evaluation note* Diagnosis Acute non-recurrent maxillary sinusitis- Primary [facility] Diagnosis Low back pain, unspecified back pain laterality, unspecified chronicity, unspecified whether sciatica present- Primary [facility]* Diagnosis Onset Date Resolution Status Contact with and (suspected) exposure to covid-[address] [facility] Work Phone: History general Narrative - Reported* Type Description Date Medical History Depression Medical History Bipolar disorder Medical History Hypertension Medical History Hypothyroidism Surgical History cholecystectomy Surgical History wisdom teeth extract Surgical History lipoma removed Surgical History left knee scope x 2 Surgical History hemorrhoidectomy Hospitalization History see above surgical histo ry [facility] Other Hospital Discharge instructions* Attachments The following attachments cannot be sent through Care Everywhere. * Section: Post-op (Kenyan) * Preeclampsia: : General Info (Kenyan) * Depression: (Kenyan) [facility]: Instructions* Attachments The following attachments cannot be sent through Care Everywhere. * Sinusitis in adults (Kenyan) documented in this encounterProCleveland Clinic [facility] HospitalChargeBee SystemInstructionsNot on file documented in this encounterProCleveland Clinic Marymount HospitalChargeBee SystemInstructionsNot on file documented in this encounterProCleveland Clinic Marymount HospitalChargeBee SystemInstructionsNot on file documented in this encounterProCleveland Clinic Marymount HospitalChargeBee SystemInstructionsNot on file documented in this encounterHocking Valley Community HospitalChargeBee System Summary Purpose Family History No Family [...] sleep apnea) Procedures PSG Diagnostic Lindsey Mcmahon, ENTERPRISE SALES PERSON-DIRECTOR OF COUNTERINTELLIGENCE [facility] [facility], [address] [address] Referral ID Status Reason Start Date Expiration Date V isits Requested Visits Authorized [id number] Pending Review 06/29/2023 06/28/2024 1 1 Additional Source Comments INFORMATION SOURCE (unrecogn ized section and content) DATE CREATED AUTHOR 02/27/2018 [facility] DATE CREATED AUTHOR AUTHOR'S ORGANIZ ATION 09/15/2020 [facility] DATE CREATED AUTHOR AUTHOR'S ORGANIZ ATION 10/17/2020 [facility] DATE CREATED AUTHOR AUTHOR'S ORGANIZ ATION 08/25/2022 [facility] DATE CREATED AUTHOR AUTHOR'S ORGANIZ ATION 01/01/2023 [facility] DATE CREATED AUTHOR AUTHOR'S ORGANIZ ATION 06/30/2023 [facility] DATE CREATED AUTHOR AUTHOR'S ORGANIZ ATION 12/31/2023 [facility] DATE CREATED AUTHOR AUTHOR'S ORGANIZ ATION 01/05/2024 [facility] DATE CREATED AUTHOR AUTHOR'S ORGANIZ ATION 01/05/2024 [facility] REASON FOR VISIT (unrecogniz ed section and content) Specialty Diagnoses / Procedures Referred By Ismael landis Referred To Contact Diagnoses 36 weeks gestation of Hitesh Holloway, DO [address] [place] [address] [facility] [address] [place] [address] Referral ID Status Reason Start Date Expiration Date Visits Re quested Visits Authorized [id number] 1 1 Reason Comments Nasal Congestion Dizziness Reason Onset Date Comments Sleep Lab 05/29/2023 Reason Comments Med Refill Reason Comments New Patient Sleep ConsultNo prio r sleep studyNot on PAP Specialty Diagnoses / Procedures Referred By Ismael landis Referred To Contact Pulmonary Medicine Diagnoses Morning headache Memory loss Razia Muller, ENTERPRISE SALES PERSON-DIRECTOR OF COUNTERINTELLIGENCE [address] [place] [address] sp Pulm Sleep Med [facility] [facility] [place] [address] Referral ID Status Reason Start Date Expiration Date Visits Requested Visits Authorized [id number] Pending Review Specialty Services Required 06/12/2023 06/11/2024 [...] (Given - Provider: Stephany Paige APRN - SOFTWARE TOOLS DEVELOPER) citalopram (CELEXA) tablet 20 mg 20 mg, [...] (NoRateChange - Provider: Stephany Paige APRN - SOFTWARE TOOLS DEVELOPER)1829 (Paused - Provider: Agata Pollard, VIKTORIA - Comment: Switch to gravity)1830 (New Bag - Provider: Agata Pollard, RN)1927 (New Bag - Provider: Agata Pollrad RN) PRN Medication Order 07/20/2022 07/21/2022 07/22/2022 [...] December 17, 2023 End: December 17, 2023 Launch Engineer Relationship Specialty Start Date End Date Chas Balderas MD [address] [place] [address] PCP - General Family Medicine 06/29/23 Launch Engineer Relationship Specialty Start Date End Date Katerin Haynes APRN-DIRECTOR OF COUNTERINTELLIGENCE [address] [place] [address] PCP - General Family Medicine 11/23/22 Team Status: Active Member Role Status Armond Villalobos MD Primary Care Provider Active Team Status: Inactive Member Role Status Dates Aline Villalobos MD Primary Care Provider Active Razia Muller , ENTERPRISE SALES PERSON-COBOL ENGINEER-C Attending Provider Active Goals (unrecognized section [...] BE BASED ON THE PRIMARY CLINICAL RECORDS. [employer] provides no warranty or guarantee of the accuracy or completeness of information in this document.
[2024-01-14 16:42] VITALS: BP 142/66; PULSE 81
--- NOTE | 2024-01-14 16:49 | US_ITS ---
[place] [id number] Patient Name: YANI STEVENS MRN: [facility]:[id number] date: 1990 Sex: F Assigned Patient Location: US Current Patient Location: US Accession/Order Number: [id number] Exam Date: 01/14/2024 17:30 Report Date: 01/15/2024 07:12 At the request of: NOAH PETERSON Procedure: US OB BPP w non-stress EXAMINATION: US OB BPP w non-stress HISTORY:htn, gdm COMPARISON: Ultrasound OB biophysical 01/07/2024 TECHNIQUE: Ultrasound biophysical profile was performed in the radiology department. BREATHING MOVEMENTS: 2 GROSS BODY MOVEMENTS: 2 TONE: 2 QUALITATIVE AMNIOTIC FLUID VOLUME: 2 PRESENTATION: Cephalic HEART RATE: 140 bpm AMNIOTIC FLUID VOLUME: 11.8 cm; normal range GESTATIONAL AGE: 33 weeks 6 days US/US OB BPP w non-stress IMPRESSION: Total biophysical profile score: 8 Electronically authenticated by: GERARD GONZALEZ Date: 01/15/2024 07:12
--- NOTE | 2024-01-14 17:25 | US_ITS ---
[address] [address] Patient Name: YANI STEVENS MRN: [facility]:[id number] date: 1990 Sex: F Assigned Patient Location: Current Patient Location: US Accession/Order Number: [id number] Exam Date: 01/14/2024 17:30 Report Date: 01/15/2024 07:17 At the request of: NOAH PETERSON Procedure: US OB umbilical artery EXAMINATION: US OB umbilical artery HISTORY: GESTATIONAL DIABETES MELLITUS O24.419 COMPARISON: Ultrasound OB umbilical artery 01/07/2024 TECHNIQUE: Duplex Doppler evaluation of the umbilical arteries. FINDINGS: HEART RATE: 140 bpm UMBILICAL ARTERIES: 1 GESTATIONAL AGE: 33 weeks 6 days WAVEFORM: Normal upstroke. No notching. Forward flow in diastole. PEAK SYSTOLIC VELOCITY: 110 cm/s END DIASTOLIC VELOCITY: 52 cm/s SYST/DIAST RATIO (S:D): 2.1 RESISTIVE INDEX: 0.51 US/US OB umbilical artery IMPRESSION: 1. Class 0 = Normal umbilical artery blood velocity Systolic/Diastolic ratio (S:D): Age 34: 2.08 for the 10th percentile, 2.52 for the 50th percentile, 3.41 for the 90th percentile Electronically authenticated by: GERARD GONZALEZ Date: 01/15/2024 07:17
== END 2024-01-14 18:00 | disposition home or self-care (01) ==
LOC: US 07:02 → FBC 16:34
PROVIDERS: PCP Family Medicine; Visit Provider Obstetrics & Gynecology
DX: O24.419 Gestational diabetes mellitus in pregnancy, unspecified control (principal); O99.283 Endocrine, nutritional and metabolic diseases complicating pregnancy, third trimester; E03.9 Hypothyroidism, unspecified; O34.211 Maternal care for low transverse scar from previous cesarean delivery; Z3A.33 33 weeks gestation of pregnancy
CPT/HCPCS: 76818; 76820

== ENCOUNTER 2024-01-17 06:56 | Outpatient (OUT) | payer BC, MEDICAID, SELFPAY ==
--- OUTSIDE RECORDS SUMMARY | 2024-01-17 06:59 | XMS_ITS | CCD ---
Author Organization [facility] Care Team Providers Care Weatherstrip Machine Operator Name Role Phone PHYSICIAN, DEFAULT Unavailable [...] NADERER, DR CHAS Norman Primary Care Unavailable DUL[place], DR ALINE Henriquez Consulting Unavailable NICHOLAS, DR [...] NICHOLAS, DR ZAMORA Admitting Unavailable NICHOLAS, DR ZMAORA Attending Unavailable NICHOLAS, DR ZAMORA Consulting Unavailable [...] Unavailable MD Aline Villalobos Primary Care Provider TONJA Muller Attending Provider Aline Villalobos Primary Care Unavailable Razia Muller Admitting Unavailable Razia Muller Attending Unavailable Aline Villalobos Primary Care Unavailable Razia Muller Admitting Unavailable Razia Muller Attending Unavailable Jovita Murcia Unavailable Schlachter PADDER CUSHION-CLERK CARRIER, Katerin Primary Care Provide r Schsdchter PADDER CUSHION-CLERK CARRIER, Katerin Primary Care Provide r Sherrie TENORIO, [...] HUGHES Attending Unavailable LINA HUGHES Referring Unavailable SCHLACHTER, KATERIN Primary Care Unavailable HERBERT, MANUEL Landis Attending Unavailable HERBERT, MANUEL Landis Referring Unavailable NADERER, CHAS Primary Care Unavailable NADERER, [facility] Primary Care Unavailable KANIKA VIDAL Attending Unavailable MULLER, RAZIA Referring Unavailable SCHLACHTER, KATERIN Primary Care Unavailable PERNI, MATEO C Referring Unavailable NADERER, [facility] Primary Care Unavailabl e PERNI, MATEO C Referring Unavailable NADERER, [facility] Primary Care Unavailabl e PERNI, MATEO C Referring Unavailable NADERER, [facility] Primary Care Unavailbrinda e CLAUDIA VILLAR Admitting Unavailable CLAUDIA VILLAR Attending Unavailable [facility] Primary Care Unavailbrinda e CHARMAINE HAIRSTON Attending Unavailable NICHOLAS, NOAH Attending Unavailable NADERER, CHAS Attending Unavailable NICHOLAS, NOAH Attending Unavailable NADERER, CHAS Attending Unavailable NICHOLAS, NOAH Attending Unavailable NICHOLAS, NOAH Attending Unavailable NICHOLAS, NOAH Attending Unavailable CHARMAINE HAIRSTON Attending Unavailable NICHOLAS, NOAH Attending Unavailable NICHOLAS, NOAH Attending Unavailable NICHOLAS, NOAH Attending Unavailable NICHOLAS, NOAH Attending Unavailable Allergies Allergy Classification Reported Allergen(s) Allergy Type Date of Onset Reaction(s) Facility (20 sources) Amoxicillin; Translations: [Amoxicillin] Drug Allergy 11-08-18 96 Anaphylaxis, shortness of breath [facility] (18 sources) Morphine; Translations: [MORPHINE] Drug Allergy 09-18-19 18 hives, Rash [facility] [employer] Other (16 sources) Codeine; Translations: [CODEINE] Drug Allergy 06-06-19 23 [facility] (13 sources) Penicillins; Translations: [PENICILLINS] Propensity to adverse reactions to drug 02-22-20 16 Anaphylaxis, Shortness Of Breath [facility] Work Phone: (1 source) Codeine Drug Allergy 07-30-19 22 [facility] (1 source) Morphine Drug Allergy [facility] (1 source) Codeine Drug Allergy 12-23-19 23 [facility] (1 source) Morphine Drug Allergy 05-25-19 21 [facility] (1 source) Pseudoephedrine Drug Allergy 02-22-20 22 Unknown [employer] Other (1 source) Allergies Reconciled Propensity to adverse reactions 02-28-20 Unknown [facility] Other (1 source) Substance with penicillin structure and antibacterial mechanism of action (substance) Drug allergy 02-28-20 22 Unknown [facility] Other (1 source) Morphine Sulfate (Concentrate) *ANALGESICS - OPIOI Propensity to adverse reactions 02-28-20 Unknown [facility] Other (9 sources) Doxycycline; Translations: [DOXYCYCLINE] Drug Allergy 02-08-20 23 [facility] (1 source) 12 Hour Decongestant Allergy to substance 12-17-19 24 Unknown Reaction [facility] Medications Current Medications Medication Drug Class(es) [...] as needed Orally every 6 hrs Active [id number] 200 actuat albuterol 0.09 mg/actuat metered dose [...] 06-20-2022 PROFE 391.3 (180 Fe) MG CAPS [id number] Acid (1 source) Start: 12-17-2023 take 1 tablet by mouth once daily [id number] Acid Active 1 TAB PO Daily December [...] Inhibito r Start: 02-26-2023 End: 06-29-2023 t ester k e 1 t a b l [...] Orally once a d ay Active levonorgestrel 0.755454 mg/hr intrauterine system (3 sources) Progestin, Progestin-containing [...] tablet 0 11/16/2017 Active polyethylene glycol 3350 92938 mg powder for oral solution (3 sources) [...] Onset: 05-26-2022 Episodic Other aftercare (1 source) custodial (current) use of insulin; Translations: [[facility] CURRENT USE OF INSULIN] Onset: 07-14-2022 Episodic [...] source) OT SPCF DIS/COND COMPL ; Translations: [OT SPCF DIS/COND COMPL ] Onset: 05-29-2022 Unclassified (1 source) abnormal result; Translations: [Other nonspecific abnormal finding] Unclassified (1 source) Myalgic encephalomyelitis/chr onic fatigue syndrome; Translations: [Myalgic encephalomyelitis/chr onic fatigue syndrome] Resolved: 07-20-2021 Unclassified (1 source) Suspected COVID-19 virus infection Z20.822 Unclassified (7 sources) Onset: 05-03-2023 05-03-2023 Results Test Name Value Interpretation Reference Range Facility Chlamydia/GC,DNA Ampon 12-31 Chlamydia Probe Negative Normal NEG [facility] Comment on above: Result Comment: [...] PROSAC, HOCYS, GLYHGB, TSH, LUPPRO, FT4 #### [employer] [address] [place] [phone] Guardian Ad Litem: Gideon Bullock MD #### AAFPM #### [employer] [address] [place] [address] [phone] Guardian Ad Litem: Gideon Bullock MD [address] [address] Guardian Ad Litem: Fantasma Wood MD #### AF5MUT, AMTHFR, APTMUT #### [facility] [address] [place] [address] Guardian Ad Litem: Fantasma Wood MD Gonorrhea Probe Negative Normal NEG [facility] Comment on above: Result Comment: [...] PROSAC, HOCYS, GLYHGB, TSH, LUPPRO, FT4 #### [place] [address] Guardian Ad Litem: Gideon Bullock MD #### AAFPM #### [address] [address] Guardian Ad Litem: Gideon Bullock MD [address] [phone] Guardian Ad Litem: Fantasma Wood MD #### AF5MUT, AMTHFR, APTMUT #### [facility] [address] [place] [address] Guardian Ad Litem: Fantasma Wood MD CBC with Diffon 12-31-2023 Abs. Basophil 0.03 k/uL Normal 0.00-0.20 [facility] Comment on above: Performed By: #### U AMIC, URTPRT #### [place] [address] Guardian Ad Litem: Gideon Bullock MD Abs.Imm.Granulocyte 0.04 k/uL Normal 0.00-0.30 [facility] Comment on above: Performed By: #### U AMIC, URTPRT #### [facility] [employer] [address] [place] [phone] Guardian Ad Litem: Gideon Bullock MD Abs.Neutrophil (Seg) 5.25 k/uL Normal 1.50-8.10 [facility] Comment on above: Performed By: #### U AMIC, URTPRT #### [facility] [employer] [address] [place] [address] Guardian Ad Litem: Gideon Bullock MD Basophils/100 WBC (Bld) 0 % Normal 0-2 [facility] Comment on above: Performed By: #### U AMIC, URTPRT #### [facility] [employer] [address] [place] [address] Guardian Ad Litem: Gideon Bullock MD Eosinophils (Bld) [#/Vol] 0.18 10*3/uL Normal 0.00-0.44 [facility] Comment on above: Performed By: #### U AMIC, URTPRT #### [facility] [employer] [address] [place] [address] Guardian Ad Litem: Gideon Bullock MD Eosinophils/100 WBC (Bld) 2 % Normal 1-4 [facility] Comment on above: Performed By: #### U AMIC, URTPRT #### [facility] [employer] [address] [place] [address] Guardian Ad Litem: Gideon Bullock MD Erythrocyte distribution width (RBC) [Ratio] 13.1 % Normal 11.8-14.4 [facility] Comment on above: Performed By: #### U AMIC, URTPRT #### [facility] [employer] [address] [place] [phone] Guardian Ad Litem: Gideon Bullock MD Hematocrit (Bld) [Volume fraction] 35.1 % Low 36.3-47.1 [facility] Comment on above: Performed By: #### U AMIC, URTPRT #### [address] [address] Guardian Ad Litem: Gideon Bullock MD Hemoglobin (Bld) [Mass/Vol] 11.9 g/dL Normal 11.9-15.1 [facility] Comment on above: Performed By: #### U AMIC, URTPRT #### [address] [address] Guardian Ad Litem: Gideon Bullock MD Immature granulocytes/100 WBC (Bld) 1 % High 0 [facility] Comment on above: Performed By: #### U AMIC, URTPRT #### [address] [address] Guardian Ad Litem: Gideon Bullock MD Lymphocytes (Bld) [#/Vol] 1.81 10*3/uL Normal 1.10-3.70 [facility] Comment on above: Performed By: #### U AMIC, URTPRT #### [address] [address] Guardian Ad Litem: Gideon Bullock MD Lymphocytes/100 WBC (Bld) 23 % Low 24-43 [facility] Comment on above: Performed By: #### U AMIC, URTPRT #### [address] [address] Guardian Ad Litem: Gideon Bullock MD MCH (RBC) [Entitic mass] 28.9 pg Normal 25.2-33.5 [facility] Comment on above: Performed By: #### U AMIC, URTPRT #### [address] [address] Guardian Ad Litem: Gideon Bullock MD MCHC (RBC) [Mass/Vol] 33.9 g/dL Normal 28.4-34.8 [facility] Comment on above: Performed By: #### U AMIC, URTPRT #### [address] [address] Guardian Ad Litem: Gideon Bullock MD MCV (RBC) [Entitic vol] 85.2 fL Normal 82.6-102.9 [facility] Comment on above: Performed By: #### U AMIC, URTPRT #### [address] [address] Guardian Ad Litem: Gideon Bullock MD Monocytes (Bld) [#/Vol] 0.62 10*3/uL Normal 0.10-1.20 [facility] Comment on above: Performed By: #### U AMIC, URTPRT #### [address] [address] Guardian Ad Litem: Gideon Bullock MD Monocytes/100 WBC (Bld) 8 % Normal 3-12 [facility] Comment on above: Performed By: #### U AMIC, URTPRT #### [address] [address] Guardian Ad Litem: Gideon Bullock MD Neutrophil (Seg) 66 % High 36-65 [facility] Comment on above: Performed By: #### U AMIC, URTPRT #### [address] [address] Guardian Ad Litem: Gideon Bullock MD NRBC Automated 0.0 per 100 WBC Normal 0.0 [facility] Comment on above: Performed By: #### U AMIC, URTPRT #### [address] [address] Guardian Ad Litem: Gideon Bullock MD Platelet mean volume (Bld) [Entitic vol] 10.9 fL Normal 8.1-13.5 [facility] Comment on above: Performed By: #### U AMIC, URTPRT #### [address] [address] Guardian Ad Litem: Gideon Bullock MD Platelets (Bld) [#/Vol] 175 10*3/uL Normal 138-453 [facility] Comment on above: Performed By: #### U AMIC, URTPRT #### [facility] [address] [place] [address] Guardian Ad Litem: Gideon Bullock MD RBC (Bld) [#/Vol] 4.12 10*6/uL Normal 3.95-5.11 [facility] Comment on above: Performed By: #### U AMIC, URTPRT #### [address] [address] Guardian Ad Litem: Gideon Bullock MD WBC (Bld) [#/Vol] 7.9 10*3/uL Normal 3.5-11.3 [facility] Comment on above: Performed By: #### U AMIC, URTPRT #### [facility] [employer] [address] [place] [phone] Guardian Ad Litem: Gideon Bullock MD Comp Metabolic Profon 2023 Albumin [Mass/Vol] 3.7 g/dL Normal 3.5-5.2 [facility] Comment on above: Performed By: #### U AMIC, URTPRT #### [facility] [employer] [address] [place] [address] Guardian Ad Litem: Gideon Bullock MD Albumin/Glob Ratio 1.0 Normal 1.0-2.5 [facility] Comment on above: Performed By: #### U AMIC, URTPRT #### [facility] [employer] [address] [place] [address] Guardian Ad Litem: Gideon Bullock MD Alkaline Phos 105 U/L High 35-104 [facility] Comment on above: Performed By: #### U AMIC, URTPRT #### [facility] [employer] [address] [place] [address] Guardian Ad Litem: Gideon Bullock MD ALT [Catalytic activity/Vol] 18 U/L Normal 10-35 [facility] Comment on above: Performed By: #### U AMIC, URTPRT #### [address] [address] Guardian Ad Litem: Gideon Bullock MD Anion gap [Moles/Vol] 10 mmol/L Normal 9-16 [facility] Comment on above: Performed By: #### U AMIC, URTPRT #### [address] [address] Guardian Ad Litem: Gideon Bullock MD AST [Catalytic activity/Vol] 16 U/L Normal 10-35 [facility] Comment on above: Performed By: #### U AMIC, URTPRT #### [address] [address] Guardian Ad Litem: Gideon Bullock MD Bilirubin [Mass/Vol] 0.2 mg/dL Normal 0.00-1.20 [facility] Comment on above: Performed By: #### U AMIC, URTPRT #### [address] [address] Guardian Ad Litem: Gideon Bullock MD Calcium [Mass/Vol] 9.0 mg/dL Normal 8.6-10.4 [facility] Comment on above: Performed By: #### U AMIC, URTPRT #### [facility] [employer] [address] [place] [address] Guardian Ad Litem: Gideon Bullock MD Chloride [Moles/Vol] 106 mmol/L Normal 98-107 [facility] Comment on above: Performed By: #### U AMIC, URTPRT #### [facility] [employer] [address] [place] [address] Guardian Ad Litem: Gideon Bullock MD CO2 [Moles/Vol] 21 mmol/L Normal 20-31 [facility] Comment on above: Performed By: #### U AMIC, URTPRT #### [address] [address] Guardian Ad Litem: Gideon Bullock MD Creatinine [Mass/Vol] 0.4 mg/dL Low 0.50-0.90 [facility] Comment on above: Performed By: #### U AMIC, URTPRT #### [address] [address] Guardian Ad Litem: Gideon Bullock MD GFR/1.73 sq M.predicted among non-blacks MDRD (S/P/Bld) [Vol rate/Area] mL/min/{1.73_m2} Normal >60 [facility] Comment on above: Result Comment: [...] renal tubular secretion. Performed By: #### U AMIC, URTPRT #### [address] [address] Guardian Ad Litem: Gideon Bullock MD Glucose [Mass/Vol] 74 mg/dL Normal 74-99 [facility] Comment on above: Performed By: #### U AMIC, URTPRT #### [address] [address] Guardian Ad Litem: Gideon Bullock MD Potassium [Moles/Vol] 3.9 mmol/L Normal 3.7-5.3 [facility] Comment on above: Performed By: #### U AMIC, URTPRT #### [address] [address] Guardian Ad Litem: Gideon Bullock MD Protein [Mass/Vol] 6.9 g/dL Normal 6.6-8.7 [facility] Comment on above: Performed By: #### U AMIC, URTPRT #### [address] [address] Guardian Ad Litem: Gideon Bullock MD Sodium [Moles/Vol] 137 mmol/L Normal 136-145 [facility] Comment on above: Performed By: #### U AMIC, URTPRT #### [address] [address] Guardian Ad Litem: Gideon Bullock MD Urea nitrogen [Mass/Vol] 9 mg/dL Normal 6-20 [facility] Comment on above: Performed By: #### U AMIC, URTPRT #### [address] [address] Guardian Ad Litem: Gideon Bullock MD Protein,Tot,Verdigre Uron 2023 Creatinine [Mass/Vol] 123.0 mg/dL Normal 28.0-217.0 [facility] Comment on above: Performed By: #### U AMIC, URTPRT #### [address] [address] Guardian Ad Litem: Gideon Bullock MD Tot Prot. Conc. 14 mg/dL Normal [facility] Comment on above: Result Comment: No n ormal range established. Performed By: #### U AMIC, URTPRT #### [address] [address] Guardian Ad Litem: Gideon Bullock MD TP/Cre Ratio 0.12 Normal [facility] Comment on above: Performed By: #### U AMIC, URTPRT #### [address] [address] Guardian Ad Litem: Gideon Bullock MD Urinalysis w/ Microon 2023 Bacteria None Normal NONE [facility] Comment on above: Performed By: #### U AMIC, URTPRT #### [address] [address] Guardian Ad Litem: Gideon Bullock MD Bilirubin, SemiQt,Ur Negative Normal NEG [facility] Comment on above: Performed By: #### U AMIC, URTPRT #### [address] [address] Guardian Ad Litem: Gideon Bullock MD Blood, Urine MODERATE Abnormal NEG [facility] Comment on above: Performed By: #### U AMIC, URTPRT #### [address] [address] Guardian Ad Litem: Gideon Bullock MD Casts 0 TO 2 HYALINE Normal 0-8 [facility] Comment on above: Result Comment: Refe rence range defined for non-centrifuged specimen. Performed By: #### U AMIC, URTPRT #### [address] [address] Guardian Ad Litem: Gideon Bullock MD Clarity (U) Clear Normal CLEAR [facility] Comment on above: Performed By: #### U AMIC, URTPRT #### [address] [address] Guardian Ad Litem: Gideon Bullock MD Color (U) Yellow Normal YEL [facility] Comment on above: Performed By: #### U AMIC, URTPRT #### [address] [address] Guardian Ad Litem: Gideon Bullock MD Epithelial cells LM Ql (Urine sed) 5 TO 10 Normal 0-5 [facility] Comment on above: Performed By: #### U AMIC, URTPRT #### [address] [address] Guardian Ad Litem: Gideon Bullock MD Glucose Ql (U) Negative Normal NEG [facility] Comment on above: Performed By: #### U AMIC, URTPRT #### [facility] [address] [place] [address] Guardian Ad Litem: Gideon Bullock MD Ketones Ql (U) Negative Normal NEG [facility] Comment on above: Performed By: #### U AMIC, URTPRT #### [facility] [address] [place] [address] Guardian Ad Litem: Gideon Bullock MD Leukocyte esterase Test strip Ql (U) TRACE Abnormal NEG [facility] Comment on above: Performed By: #### U AMIC, URTPRT #### [facility] [employer] [address] [place] [address] Guardian Ad Litem: Gideon Bullock MD Nitrite,Ur Negative Normal NEG [facility] Comment on above: Performed By: #### U AMIC, URTPRT #### [facility] [employer] [address] [place] [address] Guardian Ad Litem: Gideon Bullock MD PH,Ur 6.0 Normal 5.0-8.0 [facility] Comment on above: Performed By: #### U AMIC, URTPRT #### [facility] [employer] [address] [place] [address] Guardian Ad Litem: Gideon Bullock MD Protein Ql (U) Negative Normal NEG [facility] Comment on above: Performed By: #### U AMIC, URTPRT #### [facility] [address] [place] [address] Guardian Ad Litem: Gideon Bullock MD Spec. [place],Ur 1.021 Normal 1.005-1.030 [facility] Comment on above: Performed By: #### U AMIC, URTPRT #### [facility] [employer] [address] [place] [address] Guardian Ad Litem: Gideon Bullock MD Urine RBC's 20 TO 50 Normal 0-4 [facility] Comment on above: Result Comment: Refe rence range defined for non-centrifuged specimen. Performed By: #### U AMIC, URTPRT #### [facility] [employer] [address] [place] [address] Guardian Ad Litem: Gideon Bullock MD Urine WBC's 0 TO 2 Normal 0-5 [facility] Comment on above: Performed By: #### U AMIC, URTPRT #### [facility] [employer] [address] [place] [phone] Guardian Ad Litem: Gideon Bullock MD Urobilinogen,Ur Normal Normal 0.0-1.0 [facility] Comment on above: Performed By: #### U AMIC, URTPRT #### [address] [address] Guardian Ad Litem: Gideon Bullock MD Vaginitis DNA Probeon 2023 Litzy Negative Normal NEG [facility] Comment on above: Result Comment: for Litzy sp. Method of testing is a DNA probe intended for detection and identification of Litzy species, Gardnerella vaginalis, and Trichomonas vaginalis nucleic acid in vaginal fluid specimens from patients with symptoms of vaginitis/vaginosis. Performed By: #### U AMIC, URTPRT #### [address] [address] Guardian Ad Litem: Gideon Bullock MD Gardnerella Positive Abnormal NEG [facility] Comment on above: Result Comment: for Gardnerella vaginalis Performed By: #### U AMIC, URTPRT #### [facility] [employer] [address] [place] [address] Guardian Ad Litem: Gideon Bullock MD Trichomonas Negative Normal NEG [facility] Comment on above: Result Comment: for Trichomonas Vaginalis Performed By: #### U AMIC, URTPRT #### [address] [address] Guardian Ad Litem: Gideon Bullock MD Source .VAGINAL SWAB Normal [facility] Comment on above: Performed By: #### U AMIC, URTPRT #### [address] [address] Guardian Ad Litem: Gideon Bullock MD Thyroid Stim. Horm.on 2023 Thyroid Stim. Horm. 1.48 uIU/mL Normal 0.27-4.20 [facility] Comment on above: Performed By: #### U VIVIEN URTPRT #### [address] [address] Guardian Ad Litem: Gideon Bullock MD Thyroxine, Freeon 12-06-2023 Thyroxine, Free 0.9 ng/dL Low 0.92-1.68 [facility] Comment on above: Performed By: #### U VIVIEN URTPRT #### [address] [address] Guardian Ad Litem: Gideon Bullock MD Thyroid Stim. Horm.on 2023 Thyroid Stim. Horm. 1.66 uIU/mL Normal 0.27-4.20 [facility] Comment on above: Performed By: #### P ROCAC, AT3A, PROSAC, HOCYS, GLYHGB, TSH, LUPPRO, FT4 #### [address] [address] Guardian Ad Litem: Gideon Bullock MD #### AAFPM #### [address] [address] Guardian Ad Litem: Gideon Bullock MD [facility] [address] [place] [address] Guardian Ad Litem: Fantasma Wood MD #### AF5MUT, AMTHFR, APTMUT #### [facility] [address] [place] [address] Guardian Ad Litem: Fantasma Wood MD Thyroxine, Freeon 11-08-2023 Thyroxine, Free 0.9 ng/dL Low 0.92-1.68 [facility] Comment on above: Performed By: #### P ROCAC, AT3A, PROSAC, HOCYS, GLYHGB, TSH, LUPPRO, FT4 #### [facility] [address] [place], [place] [phone] Guardian Ad Litem: Gideon Bullock MD #### AAFPM #### [facility] [address] [place] [address] Guardian Ad Litem: Gideon Bullock MD [facility] [address], [place] [phone] Guardian Ad Litem: Fantasma Wood MD #### AF5MUT, AMTHFR, APTMUT #### [facility] [address], [place] [phone] Guardian Ad Litem: Fantasma Wood MD PT Mutation [id number] 10-13-19 24 PT [id number] VARIANT Negative Normal [facility] Comment on above: Result Comment: (NOT E) Indication for testing: Assess genetic risk for thrombosis. NEGATIVE: The Factor II, prothrombin S16033T mutation, was not detected. Other causes of [...] Dsouza, Ph.D. 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 PATHOGENIC VARIANT TESTED: F2 c.*97G>A (G17837H). CLINICAL SENSITIVITY FOR VENOUS THROMBOSIS: Approximately 10 percent. METHODOLOGY: Polymerase chain reaction and fluorescence monitoring. ANALYTICAL SENSITIVITY AND SPECIFICITY: 99 percent. LIMITATIONS: Diagnostic errors can occur due to rare sequence variations. F2 gene variants, other than c.*97G>A (X84063M), will not be detected. This test was developed and its performance characteristics determined by [facility]. It has not been cleared or approved by the [place] Food and Drug Administration. This test was performed in a CLIA certified laboratory and is intended for clinical purposes. Counseling and informed consent are recommended for genetic testing. Consent forms are available online. Performed By: [facility] [address] [place] [id number] Seo Assistant: Andrew Duran MD, PhD [place] Number: [id number] Performed By: #### U AMIC, URTPRT #### [facility] [address] [place] [address] [phone] Guardian Ad Litem: Gideon Bullock MD PT PCR SPECIMEN Whole Blood Normal [facility] [facility] Comment on above: Performed By: #### U AMIKaushik, URTPRT #### [facility] [address] [place] [address] [phone] Guardian Ad Litem: Gideon Bullock MD Factor V Mutationon 10-12-19 24 F 5 SPECIMEN Whole Blood Normal [facility] Comment on above: Performed By: #### U AMIC, URTPRT #### [facility] [address] [place] [address] [phone] Guardian Ad Litem: Gideon Bullock MD FACTOR 5 MUTATION Negative Normal [facility] Comment on above: Result Comment: (NOT E) Indication for testing: Assess genetic risk for thrombosis. NEGATIVE: The factor V Leiden variant, c.1601G>A; p.Vmy409Yyl, was not detected. This does not exclude [...] function in the F5 gene variant c.1601G>A (p.Pxl250Dtd). Legacy nomenclature: [id number] (1691G>A) CLINICAL SENSITIVITY: 20-50 percent of individuals with an isolated VTE have the FVL variant. METHODOLOGY: Polymerase chain reaction and fluorescence monitoring. ANALYTICAL SENSITIVITY AND SPECIFICITY: 99 percent. LIMITATIONS: Diagnostic errors can occur due to rare sequence variations. F5 gene mutations, other than p.Mxa386Udj, will not be detected. This test was developed and its performance characteristics determined by [facility]. It has not been cleared or approved by the [place] Food and Drug Administration. This test was performed in a CLIA certified laboratory and is intended for clinical purposes. Counseling and informed consent are recommended for genetic testing. Consent forms are available online. 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 Normal [facility] Comment on above: Performed By: #### U Health Data MinderC, URTPRT #### [facility] [address] [place] [address] Guardian Ad Litem: Gideon Bullock MD MTHFR 655C>T Mut Negative Normal [facility] Comment on above: Performed By: #### U Health Data Minder, URTPRT #### [facility] [address] [place] [address] Guardian Ad Litem: Gideon Bullock MD MTHFR Interpretation See Note Normal [facility] Comment on above: Result Comment: (NOT E) Indication for testing: Determine genetic contribution to hyperhomocysteinemia. 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 The [place] [employer] Practice Guidelines indicate [...] a contributing factor to hyperhomocysteinemia. Variants Tested: c.665C>T(p.Rmu020Aiv) and c.1286A>C(p.Dlg701Plj). (legacy names C677T and A7594K, respectively). Clinical Sensitivity: Undefined; hyperhomocysteinemia is caused [...] developed and its performance characteristics determined by [facility]. It has not been cleared or approved by the [place] Food and Drug Administration. This test was performed in a CLIA certified laboratory and is intended for clinical purposes. Counseling and informed consent are recommended for genetic testing. Consent forms are available online. Performed By: [facility] [address] [place] [address] Seo Assistant: Andrew Duran MD, PhD CLIA Number: [id number] Performed By: #### U AMITilck, URTPRT #### [employer] [address] [place] [address] Guardian Ad Litem: Gideon Bullock MD MTHFR SPECIMEN Whole Blood Normal [facility] Comment on above: Performed By: #### U AMIC, URTPRT #### [employer] [address] [place], [place] [phone] Guardian Ad Litem: Gideon Bullock MD AFP, Maternalon 10-11-2023 Determined by Ultrasound Normal [facility] Comment on above: Performed By: #### U AMIC, URTPRT #### [address] [address] Guardian Ad Litem: Gideon Bullock MD Due Date SEE NOTE Normal [facility] Comment on above: Result Comment: Resu lts for Estimated Due Date: 02 26 24 Performed By: #### U AMIC, URTPRT #### [address] [address] Guardian Ad Litem: Gideon Bullock MD Family History No Normal [facility] Comment on above: Performed By: #### U AMIC, URTPRT #### [address] [address] Guardian Ad Litem: Gideon Bullock MD Gestat Age (exact) 20 wks, 0 days Normal [facility] Comment on above: Performed By: #### U AMIC, URTPRT #### [address] [address] Guardian Ad Litem: Gideon Bullock MD Ins Req Matern Diab Yes Normal [facility] Comment on above: Performed By: #### U AMIC, URTPRT #### [address] [address] Guardian Ad Litem: Gideon Bullock MD Interpretation Screen Neg Normal [facility] Comment on above: Result Comment: [...] developed and its performance characteristics determined by [facility]. It has not been cleared or approved by the [place] Food and Drug Administration. This test was performed in a CLIA certified laboratory and is intended for clinical purposes. Performed By: #### U AMIC, URTPRT #### [address] [address] Guardian Ad Litem: Gideon Bullock MD [age] [facility] Comment on above: Performed By: #### U AMIC, URTPRT #### [address] [address] Guardian Ad Litem: Gideon Bullock MD Maternal Race Nonblack [facility] Comment on above: Performed By: #### U AMIC, URTPRT #### [address] [address] Guardian Ad Litem: Gideon Bullock MD Maternal Weight 298.0 lbs. [facility] Comment on above: Performed By: #### U AMIC, URTPRT #### [address] [address] Guardian Ad Litem: Gideon Bullock MD MoM for AFP 1.29 [facility] Comment on above: Performed By: #### U AMIC, URTPRT #### [address] [address] Guardian Ad Litem: Gideon Bullock MD Number of Fetuses [facility] Comment on above: Performed By: #### U AMIC, URTPRT #### [facility] [employer] [address] [place] [address] Guardian Ad Litem: Gideon Bullock MD Patient's AFP 39 ng/mL [facility] Comment on above: Performed By: #### U AMIC, URTPRT #### [address] [address] Guardian Ad Litem: Gideon Bullock MD Smoking No [facility] Comment on above: Performed By: #### U AMIC, URTPRT #### [facility] [address] [place] [address] Guardian Ad Litem: Gideon Bullock MD Specimen See Note Normal [facility] Comment on above: Result Comment: (NOT E) Initial sample Performed By: [facility] [address] [facility] [place] [address] Seo Assistant: Andrew Duran MD, PhD CLIA Number: [id number] Performed By: #### U AMIC, URTPRT #### [facility] [address] [place] [address] Guardian Ad Litem: Gideon Bullock MD AFP, Maternalon 10-10-2023 Current Smoking NO [facility] Comment on above: Performed By: #### U AMIC, URTPRT #### [facility] [facility] [address] [place] [address] Guardian Ad Litem: Gideon Bullock MD Dating US Normal [facility] Comment on above: Performed By: #### U AMIC, URTPRT #### [facility] [employer] [address] [place] [address] Guardian Ad Litem: Gideon Bullock MD Diabetic YES Normal [facility] Comment on above: Performed By: #### U AMIC, URTPRT #### [facility] [address] [place] [address] Guardian Ad Litem: Gideon Bullock MD Donor Egg NO [facility] Comment on above: Performed By: #### U AMIC, URTPRT #### [facility] [facility] [address] [place] [address] Guardian Ad Litem: Gideon Bullock MD Estimated Due Date [id number] [facility] Comment on above: Performed By: #### U AMIC, URTPRT #### [facility] [address] [place] [address] Guardian Ad Litem: Gideon Bullock MD Family History NONE [facility] Comment on above: Performed By: #### U AMIC, URTPRT #### [facility] [place] [address] Guardian Ad Litem: Gideon Bullock MD In Vitro Fertalizat NO [facility] Comment on above: Performed By: #### U AMIC, URTPRT #### [facility] [employer] [address] [place] [address] Guardian Ad Litem: Gideon Bullock MD LMP date [id number] [facility] Comment on above: Performed By: #### U AMIC, URTPRT #### [facility] [employer] [address] [place] [address] Guardian Ad Litem: Gideon Bullock MD Maternal date [facility] Comment on above: Performed By: #### U AMIC, URTPRT #### [facility] [employer] [address] [place] [address] Guardian Ad Litem: Gideon Bullock MD Maternal Weight 298 [facility] Comment on above: Performed By: #### U AMIC, URTPRT #### [address] [address] Guardian Ad Litem: Gideon Bullock MD Monochorionic Twins NO [facility] Comment on above: Performed By: #### U AMIC, URTPRT #### [facility] [employer] [address] [place] [address] Guardian Ad Litem: Gideon Bullock MD Patient Weight Units [facility] Comment on above: Performed By: #### U AMIC, URTPRT #### [facility] [employer] [address] [place] [address] Guardian Ad Litem: Gideon Bullock MD Race (Maternal) NON BLACK [facility] Comment on above: Performed By: #### U AMIC, URTPRT #### [address] [address] Guardian Ad Litem: Gideon Bullock MD Repeat Specimen NO Normal [facility] Comment on above: Performed By: #### U AMIC, URTPRT #### [facility] [employer] [address] [place] [address] Guardian Ad Litem: Gideon Bullock MD Valproic/Carbamazep NONE Normal [facility] Comment on above: Performed By: #### U AMIC, URTPRT #### [address] [address] Guardian Ad Litem: Gideon Bullock MD Antithrombin III Chinquapin 10-09 Antithrombin III Act 110 % Normal 83-122 [facility] Comment on above: Result Comment: Patients receiving Hirudin may have a falsely decreased Antitrombin III Activity. Performed By: #### P ROCAC, AT3A, PROSAC, HOCYS, GLYHGB, TSH, LUPPRO, FT4 #### [address] [address] Guardian Ad Litem: Gideon Bullock MD #### AAFPM #### [address] [address] Guardian Ad Litem: Gideon Bullock MD [facility] [address] [place] [address] Guardian Ad Litem: Fantasma Wood MD #### AF5MUT, AMTHFR, APTMUT #### [facility] [address] [place] [address] Guardian Ad Litem: Fantasma Wood MD Lupus Anticoagulanton 2023 Anticardiolipin IgA 1.8 APL Normal 0.0-14.0 [facility] Comment on above: Result Comment: Reference Range: <14.0 Negative 14.0-20.0 Equivocal >20.0 Positive When results are Equivocal, it is recommended to retest after 4-6 weeks. Performed By: #### P ROCAC, AT3A, PROSAC, HOCYS, GLYHGB, TSH, LUPPRO, FT4 #### [address] [address] Guardian Ad Litem: Gideon Bullock MD #### AAFPM #### [address] [address] Guardian Ad Litem: Gideon Bullock MD [facility] [address] [place] [address] [phone] Guardian Ad Litem: Fantasma Wood MD #### AF5MUT, AMTHFR, APTMUT #### [address] [address] Guardian Ad Litem: Fantasma Wood MD Anticardiolipin IgG <0.5 Normal 0.0-10.0 [facility] Comment on above: Result Comment: Reference Range: <10.0 Negative 10.0-40.0 Equivocal >40.0 Positive Performed By: #### P ROCAC, AT3A, PROSAC, HOCYS, GLYHGB, TSH, LUPPRO, FT4 #### [address] [address] Guardian Ad Litem: Gideon Bullock MD #### AAFPM #### [address] [address] Guardian Ad Litem: Gideon Bullock MD [facility] [address] [place] [address] [phone] Guardian Ad Litem: Fantasma Wood MD #### AF5MUT, AMTHFR, APTMUT #### [facility] [address] [place] [address] Guardian Ad Litem: Fantasma Wood MD Anticardiolipin IgM <0.8 Normal 0.0-10.0 [facility] Comment on above: Result Comment: Reference Range: <10.0 Negative 10.0-40.0 Equivocal >40.0 Positive Performed By: #### P ROCAC, AT3A, PROSAC, HOCYS, GLYHGB, TSH, LUPPRO, FT4 #### [address] [address] Guardian Ad Litem: Gideon Bullock MD #### AAFPM #### [address] [address] Guardian Ad Litem: Gideon Bullock MD [address] [address] Guardian Ad Litem: Fantasma Wood MD #### AF5MUT, AMTHFR, APTMUT #### [address] [address] Guardian Ad Litem: Fantasma Wood MD Dilute Heladio Viper Negative Normal [facility] Comment on above: Performed By: #### P ROCAC, AT3A, PROSAC, HOCYS, GLYHGB, TSH, LUPPRO, FT4 #### [address] [address] Guardian Ad Litem: Gideon Bullock MD #### AAFPM #### [address] [address] Guardian Ad Litem: Gideon Bullock MD [address] [address] Guardian Ad Litem: Fantasma Wood MD #### AF5MUT, AMTHFR, APTMUT #### [address] [address] Guardian Ad Litem: Fantasma Wood MD Protein C Activityon 024 Protein C Activity 136 % Normal >80 [facility] Comment on above: Result Comment: [...] PROSAC, HOCYS, GLYHGB, TSH, LUPPRO, FT4 #### [facility] [address] [place] [address] Guardian Ad Litem: Gideon Bullock MD #### AAFPM #### [address] [address] Guardian Ad Litem: Gideon Bullock MD [facility] [address] [place] [address] Guardian Ad Litem: Fantasma Wood MD #### AF5MUT, AMTHFR, APTMUT #### [facility] [address] [place] [address] Guardian Ad Litem: Fantasma Wood MD Protein S Activityon 024 Protein S Activity 68 % Normal 59-130 [facility] Comment on above: Result Comment: [...] PROSAC, HOCYS, GLYHGB, TSH, LUPPRO, FT4 #### [facility] [address] [place] [address] Guardian Ad Litem: Gideon Bullock MD #### AAFPM #### [address] [address] Guardian Ad Litem: Gideon Bullock MD [facility] [address] [place] [address] Guardian Ad Litem: Fantasma Wood MD #### AF5MUT, AMTHFR, APTMUT #### [facility] [address] [place] [address] Guardian Ad Litem: Fantasma Wood MD Hemoglobin A1Con 10-09-2023 Glucose [Mass/Vol] 103 mg/dL Normal [facility] Comment on above: Result Comment: The ADA and AACC recommend providing the estimated average glucose result to permit better patient understanding of their HBA1c result. Performed By: #### P ROCAC, AT3A, PROSAC, HOCYS, GLYHGB, TSH, LUPPRO, FT4 #### [address] [address] Guardian Ad Litem: Gideon Bullock MD #### AAFPM #### [address] [address] Guardian Ad Litem: Gideon Bullock MD [facility] [address] [place] [address] Guardian Ad Litem: Fantasma Wood MD #### AF5MUT, AMTHFR, APTMUT #### [facility] [address] [place] [address] Guardian Ad Litem: Fantasma Wood MD HbA1c (Bld) [Mass fraction] 5.2 % Normal 4.0-6.0 [facility] Comment on above: Performed By: #### P ROCAC, AT3A, PROSAC, HOCYS, GLYHGB, TSH, LUPPRO, FT4 #### [address] [address] Guardian Ad Litem: Gideon Bullock MD #### AAFPM #### [address] [address] Guardian Ad Litem: Gideon Bullock MD [facility] [address] [place], [place] [phone] Guardian Ad Litem: Fantasma Wood MD #### AF5MUT, AMTHFR, APTMUT #### [facility] [address] [place] [address] Guardian Ad Litem: Fantasma Wood MD Homocysteineon 10-09-2023 Homocysteine 4.3 umol/L Normal 0.0-15.0 [facility] Comment on above: Performed By: #### P ROCAC, AT3A, PROSAC, HOCYS, GLYHGB, TSH, LUPPRO, FT4 #### [address] [address] Guardian Ad Litem: Gideon Bullock MD #### AAFPM #### [address] [address] Guardian Ad Litem: Gideon Bullock MD [facility] [address] [place], [place] [phone] Guardian Ad Litem: Fantasma Wood MD #### AF5MUT, AMTHFR, APTMUT #### [facility] [address] [place], [place] [phone] Guardian Ad Litem: Fantasma Wood MD Lupus Anticoagulanton 2023 aPTT Coag (Bld) [Time] 27.5 s Normal 23.0-36.5 [facility] Comment on above: Result Comment: IV Heparin Therapy Range: 66.0-92.0 sec Performed By: #### P ROCAC, AT3A, PROSAC, HOCYS, GLYHGB, TSH, LUPPRO, FT4 #### [address] [address] Guardian Ad Litem: Gideon Bullock MD #### AAFPM #### [address] [address] Guardian Ad Litem: Gideon Bullock MD [facility] [address] [place], [place] [phone] Guardian Ad Litem: Fantasma Wood MD #### AF5MUT, AMTHFR, APTMUT #### [facility] [address] [place], [place] [phone] Guardian Ad Litem: Fantasma Wood MD INR Coag (PPP) [Relative time] 1.0 {INR} Normal [facility] Comment on above: Result Comment: Therapeutic Range: Moderate Anticoagulant Intensity: INR = 2.0-3.0 High Anticoagulant Intensity: INR = 2.5-3.5 Performed By: #### P ROCAC, AT3A, PROSAC, HOCYS, GLYHGB, TSH, LUPPRO, FT4 #### [address] [address] Guardian Ad Litem: Gideon Bullock MD #### AAFPM #### [address] [address] Guardian Ad Litem: Gideon Bullock MD [address] [phone] Guardian Ad Litem: Fantasma Wood MD #### AF5MUT, AMTHFR, APTMUT #### [address] [address] Guardian Ad Litem: Fantasma Wood MD PT Coag (PPP) [Time] 13.1 s Normal 11.7-14.9 [facility] Comment on above: Performed By: #### P ROCAC, AT3A, PROSAC, HOCYS, GLYHGB, TSH, LUPPRO, FT4 #### [address] [address] Guardian Ad Litem: Gideon Bullock MD #### AAFPM #### [address] [address] Guardian Ad Litem: Gideon Bullock MD [address] [phone] Guardian Ad Litem: Fantasma Wood MD #### AF5MUT, AMTHFR, APTMUT #### [facility] [address] [place], [place] [phone] Guardian Ad Litem: Fantasma Wood MD Protein,Tot,Verdigre Uron 2023 Creatinine [Mass/Vol] 120.0 mg/dL Normal 28.0-217.0 [facility] Comment on above: Performed By: #### U VIVIEN URTPRT #### [facility] [employer] [address] [place] [address] Guardian Ad Litem: Gideon Bullock MD Tot Prot. Conc. 10 mg/dL Normal [facility] Comment on above: Result Comment: No n ormal range established. Performed By: #### U VIVIEN URTPRT #### [facility] [employer] [address] [place] [address] Guardian Ad Litem: Gideon Bullock MD TP/Cre Ratio 0.08 Normal [facility] Comment on above: Performed By: #### Jona PUGA URTPRT #### [address] [address] Guardian Ad Litem: Gideon Bullock MD Thyroid Stim. Horm.on 2023 Thyroid Stim. Horm. 2.35 uIU/mL Normal 0.27-4.20 [facility] Comment on above: Performed By: #### P ROCAC, AT3A, PROSAC, HOCYS, GLYHGB, TSH, LUPPRO, FT4 #### [address] [address] Guardian Ad Litem: Gideon Bullock MD #### AAFPM #### [address] [address] Guardian Ad Litem: Gideon Bullock MD [address] [address] Guardian Ad Litem: Fantasma Wood MD #### AF5MUT, AMTHFR, APTMUT #### [facility] [address] [place] [address] Guardian Ad Litem: Fantasma Wood MD Thyroxine, Freeon 10-09-2023 Thyroxine, Free 0.9 ng/dL Low 0.92-1.68 [facility] Comment on above: Performed By: #### P ROCAC, AT3A, PROSAC, HOCYS, GLYHGB, TSH, LUPPRO, FT4 #### [facility] [address] [place] [address] Guardian Ad Litem: Gideon Bullock MD #### AAFPM #### [facility] [address] [place] [address] Guardian Ad Litem: Gideon Bullock MD [facility] [address] [place], [place] [phone] Guardian Ad Litem: Fantasma Wood MD #### AF5MUT, AMTHFR, APTMUT #### [facility] [address] [place] [address] Guardian Ad Litem: Fantasma Wood MD XR FOOT RT MIN [...] Blas MD on 09/10/2023 12:[address] [facility] MR BRAIN W WO CONTon 024 [...] Rice MD on 06/14/2023 8:[address] [facility] BASIC METABOLIC PANLon 05-16 Anion gap [Moles/Vol] 10 mmol/L Normal 5-15 [facility] Comment on above: Performed By: #### B PHYLLIS CBCA #### [facility] ([id number]) [address] [place] [address] Calcium [Mass/Vol] 8.9 mg/dL Normal 8.5-10.5 [facility] Comment on above: Performed By: #### B PHYLLIS CBCA #### [facility] ([id number]) [address] [place] [address] Chloride [Moles/Vol] 107 mmol/L Normal 98-109 [facility] Comment on above: Performed By: #### B PHYLLIS CBCA #### [facility] ([id number]) [address] [place] [address] CO2 [Moles/Vol] 18 mmol/L Low 22-32 [facility] Comment on above: Performed By: #### B PHYLLIS CBCA #### [facility] ([id number]) [address] [place] [address] Creatinine [Mass/Vol] 0.58 mg/dL Normal 0.40-1.00 [facility] Comment on above: Result Comment: METH OD TRACEABLE TO IDMS STANDARD Performed By: #### B PHYLLIS CBCA #### [facility] ([id number]) [address] [place] [address] eGFR (CKD-EPI) NON-RACE DEPENDENT >90 Normal >59 [facility] Comment on above: Result Comment: Reported eGFR is based on the CKD-EPI 2020 equation that does not use a race coefficient. Performed By: #### B PHYLLIS CBCA #### [facility] ([id number]) [address] [place] [address] Glucose [Mass/Vol] 109 mg/dL High 65-99 [facility] Comment on above: Performed By: #### B PHYLLIS CBCA #### [facility] ([id number]) [address] [place] [address] Potassium [Moles/Vol] 3.3 mmol/L Low 3.5-5.0 [facility] Comment on above: Performed By: #### B PHYLLIS CBCA #### [facility] ([id number]) [address] [place] [address] Sodium [Moles/Vol] 135 mmol/L Normal 134-146 [facility] Comment on above: Performed By: #### B PHYLLIS CBCA #### [facility] ([id number]) [address] [place] [address] Urea nitrogen [Mass/Vol] 16 mg/dL Normal 5-23 [facility] Comment on above: Performed By: #### B PHYLLIS CBCA #### [facility] ([id number]) [address] [place] [address] CBC AND AUTO DIFFon 24- 24 ABSOLUTE BASOPHIL 0.1 X10E9/L Normal 0.0-0.2 [facility] Comment on above: Performed By: #### B PHYLLIS CBCA #### [facility] ([id number]) [address] [place] [address] ABSOLUTE NEUTROPHIL 4.6 X10E9/L Normal 1.5-6.6 [facility] Comment on above: Performed By: #### B MP, CBCA #### [facility] ([id number]) [address] [place] [address] Basophils/100 WBC (Bld) 0.7 % Normal [facility] Comment on above: Performed By: #### B MP, CBCA #### [facility] ([id number]) [address] [place] [address] Eosinophils (Bld) [#/Vol] 0.3 10*3/uL Normal 0.0-0.4 [facility] Comment on above: Performed By: #### B MP, CBCA #### [facility] ([id number]) [address] [place] [address] Eosinophils/100 WBC (Bld) 4.4 % Normal [facility] Comment on above: Performed By: #### B MP, CBCA #### [facility] ([id number]) [address] [place] [address] Erythrocyte distribution width (RBC) [Ratio] 13.3 % Normal 11.5-15.0 [facility] Comment on above: Performed By: #### B MP, CBCA #### [facility] ([id number]) [address] [place] [address] Hematocrit (Bld) [Volume fraction] 40.5 % Normal 35-47 [facility] Comment on above: Performed By: #### B MP, CBCA #### [facility] ([id number]) [address] [place] [address] Hemoglobin (Bld) [Mass/Vol] 13.8 g/dL Normal 11.7-15.5 [facility] Comment on above: Performed By: #### B MP, CBCA #### [facility] ([id number]) [address] [place] [address] Lymphocytes (Bld) [#/Vol] 2.0 10*3/uL Normal 1.0-3.5 [facility] Comment on above: Performed By: #### B MP, CBCA #### [facility] ([id number]) [address] [place] [address] Lymphocytes/100 WBC (Bld) 26.3 % Normal [facility] Comment on above: Performed By: #### B MP, CBCA #### [facility] ([id number]) [address] [place] [address] 57998 MCH (RBC) [Entitic mass] 27.9 pg Normal 27-34 [facility] Comment on above: Performed By: #### B PHYLLIS, CBCA #### [facility] ([id number]) [address] [place] [address] 23603 MCHC (RBC) [Mass/Vol] 34.0 g/dL Normal 32-36 [facility] Comment on above: Performed By: #### B PHYLLIS, CBCA #### [facility] ([id number]) [address] [place] [address] 38596 MCV (RBC) [Entitic vol] 82 fL Normal 80-100 [facility] Comment on above: Performed By: #### B PHYLLIS, CBCA #### [facility] ([id number]) [address] [place] [address] 67573 Monocytes (Bld) [#/Vol] 0.5 10*3/uL Normal 0-0.9 [facility] Comment on above: Performed By: #### B MP, CBCA #### [facility] ([id number]) [address] [place] [address] 26923 Monocytes/100 WBC (Bld) 6.9 % Normal [facility] Comment on above: Performed By: #### B MP, CBCA #### [facility] ([id number]) [address] [place] [address] 18218 Neutrophils/100 WBC (Bld) 61.7 % Normal [facility] Comment on above: Performed By: #### B PHYLLIS CBCA #### [facility] ([id number]) [address] [place] [address] 80972 Platelet mean volume (Bld) [Entitic vol] 8.4 fL Normal 7-12 [facility] Comment on above: Performed By: #### B PHYLLIS CBCA #### [facility] ([id number]) [address] [place] [address] 48841 Platelets (Bld) [#/Vol] 247 10*3/uL Normal 150-450 [facility] Comment on above: Performed By: #### Curtis FERGUSON CBCA #### [facility] ([id number]) [address] [place] [address] 74796 RBC COUNT 4.93 X10E12/L Normal 3.80-5.20 [facility] Comment on above: Performed By: #### Curtis FERGUSON CBCA #### [facility] ([id number]) [address] [place] [address] 09220 WBC (Bld) [#/Vol] 7.5 10*3/uL Normal 4.0-11.0 [facility] Comment on above: Performed By: #### Curtis FERGUSON CBCA #### [facility] ([id number]) [address] [place] [address] BRAIN WO CONTon CT BRAIN WO [...] Leon MD on 05/16/2023 10:[address] [facility] HCG ( test) Ql (U)o n 05-16-2023 Beta HCG ( test) Ql (U) Negative Normal NEG [facility] Comment on above: Performed By: #### 2 106-3 #### [facility] ([id number]) [address] [place] [address] 58518 URN MACROSCOPIC NURon 2023 BILIRUBIN TADEO Negative Normal [facility] Comment on above: Performed By: #### N UM #### [facility] ([id number]) [address] [place] [address] 26999 BLOOD/HGB TADEO Negative Normal [facility] Comment on above: Performed By: #### N UM #### [facility] ([id number]) [address] [place] [address] 58887 GLUCOSE TADEO Negative Normal [facility] Comment on above: Performed By: #### N UM #### [facility] ([id number]) [address] [place] [address] 92152 KETONES TADEO Negative Normal [facility] Comment on above: Performed By: #### N UM #### [facility] ([id number]) [address] [place] [address] 68667 LEUKOCYTE ESTERASE TADEO Negative Normal [facility] Comment on above: Performed By: #### N UM #### [facility] ([id number]) [address] [place] [address] 02802 NITRITE TADEO Negative Normal NEG [facility] Comment on above: Performed By: #### N UM #### [facility] ([id number]) [address] [place] [address] 30848 PH TADEO 6.5 Normal 5.0-8.5 [facility] Comment on above: Performed By: #### N UM #### [facility] ([id number]) [address] [place] [address] 49248 PROTEIN TADEO Negative Normal NEG [facility] Comment on above: Performed By: #### N UM #### [facility] ([id number]) [address] [place] [address] 31639 SPECIFIC GRAVITY TADEO 1.025 Normal 1.003-1.035 [facility] Comment on above: Performed By: #### N UM #### [facility] ([id number]) [address] [place] [address] 89356 UROBILINOGEN TADEO 0.2 eu/dL Normal <1.1 [facility] Comment on above: Performed By: #### N UM #### [facility] ([id number]) [address] [place] [address] 23797 COVID + FLU Quick Testingon 02-05-2023 SARS-CoV-2 (COVID-19) RNA SARANYA+probe Ql (Unsp spec) Negative [facility] [employer] Other COVID + FLU Quick Testing Negative [facility] [employer] Other Aerobic Cultureon 12-22-2022 Aerobic Culture Comment tube 2 No Growth 2 Days Comment tube 2 No Anaerobes Isolated 3 Days Comment tube 2 Gram Stain Result No White Blood Cells Seen No Bacteria Seen PERFORMED BY: [facility] [address] [place] [address] PATHOLOGIST TOOLROOM KEEPER ALLEN COATES M.D. Normal [facility] Comment on above: Performed By: #### C BC, PT, PTT #### [address] CSF PCR Panelon 12-22-2022 CSF PCR Panel [...] Not detected Streptococcus pneumoniae - reported at IS Not detected Group B Strep (Streptococcus agalactiae) Not detected Varicella zoster virus Not detected PERFORMED BY: [place] [address] PATHOLOGIST TOOLROOM KEEPER ALLEN COATES M.D. [facility] Comment on above: Performed By: #### C SF PCR PANEL #### [address] Cell Count Differential,CSFo n 12-22-2022 Appearance, CSF Clear Normal Clear [facility] Comment on above: Order Comment: Comme nt tube 1 Performed By: #### C SFCCDIFF #2, CSF TP #2, CSF GLU #2, CSF GLU, CSF TP, GS, AERC, CSFCCDIFF #### [address] Order Comment: Comme nt tube 4 Color, CSF Colorless Normal Colorless [facility] Comment on above: Order Comment: Comme nt tube 1 Performed By: #### C SFCCDIFF #2, CSF TP #2, CSF GLU #2, CSF GLU, CSF TP, GS, AERC, CSFCCDIFF #### [address] Order Comment: Comme nt tube 4 CSF Supernatant Color Colorless Normal Colorless [facility] Comment on above: Order Comment: Comme nt tube 1 Performed By: #### C SFCCDIFF #2, CSF TP #2, CSF GLU #2, CSF GLU, CSF TP, GS, AERC, CSFCCDIFF #### [address] [place] [address] [place] Order Comment: Comme nt tube 4 CSF Volume, Total 29.4 mL Normal [facility] Comment on above: Order Comment: Comme nt tube 1 Performed By: #### C SFCCDIFF #2, CSF TP #2, CSF GLU #2, CSF GLU, CSF TP, GS, AERC, CSFCCDIFF #### [facility] [address] [place] [address] Order Comment: Comme nt tube 4 Lymphocytes, CSF 4 Normal [facility] Comment on above: Order Comment: Comme nt tube 1 Result Comment: The reference interval and other method performance specifications have not been established for this body fluid. The test result must be integrated into the clinical context for interpretation. Performed By: #### C SFCCDIFF #2, CSF TP #2, CSF GLU #2, CSF GLU, CSF TP, GS, AERC, CSFCCDIFF #### [address] RBC, CSF 2 /uL [facility] Comment on above: Order Comment: Comme nt tube 1 Result Comment: The reference interval and other method performance specifications have not been established for this body fluid. The test result must be integrated into the clinical context for interpretation. Performed By: #### C SFCCDIFF #2, CSF TP #2, CSF GLU #2, CSF GLU, CSF TP, GS, AERC, CSFCCDIFF #### [facility] [address] [place] [address] TNC, CSF 1 /uL Normal 0-5 [facility] Comment on above: Order Comment: Comme nt tube 1 Performed By: #### C SFCCDIFF #2, CSF TP #2, CSF GLU #2, CSF GLU, CSF TP, GS, AERC, CSFCCDIFF #### [facility] [address] [place] [address] Order Comment: Comme nt tube 4 Tube Number Tested, CSF Tube Number: 1 [facility] Comment on above: Order Comment: Comme nt tube 1 Result Comment: PERF ORMED BY: [place] [address] PATHOLOGIST TOOLROOM KEEPER ALLEN COATES M.D. Performed By: #### C SFCCDIFF #2, CSF TP #2, CSF GLU #2, CSF GLU, CSF TP, GS, AERC, CSFCCDIFF #### [address] Cell Count Differential,CSF #2on 12-22-2022 Lymphocytes, CSF 7 Normal [facility] Comment on above: Order Comment: Comme nt tube 4 Result Comment: The reference interval and other method performance specifications have not been established for this body fluid. The test result must be integrated into the clinical context for interpretation. Performed By: #### C SFCCDIFF #2, CSF TP #2, CSF GLU #2, CSF GLU, CSF TP, GS, AERC, CSFCCDIFF #### [address] RBC, CSF 1 /uL Normal [facility] Comment on above: Order Comment: Comme nt tube 4 Result Comment: The reference interval and other method performance specifications have not been established for this body fluid. The test result must be integrated into the clinical context for interpretation. Performed By: #### C SFCCDIFF #2, CSF TP #2, CSF GLU #2, CSF GLU, CSF TP, GS, AERC, CSFCCDIFF #### [address] Tube Number Tested, CSF Tube Number: 4 Normal [facility] Comment on above: Order Comment: Comme nt tube 4 Result Comment: PERF ORMED BY: [place] [address] PATHOLOGIST TOOLROOM KEEPER ALLEN COATES M.D. Performed By: #### C SFCCDIFF #2, CSF TP #2, CSF GLU #2, CSF GLU, CSF TP, GS, AERC, CSFCCDIFF #### [facility] [address] [place] [address] Cerebrospinal fluid post-adams trifugation appearance determinationOrdered By: Razia Muller on 12-22-2022 Appearance (Spun CSF) Colorless Colorless [facility] Cerebrospinal fluid sample t ube volume measurementOrdered By: Razia Muller on 12-22-2022 Specimen volume (CSF) 29.4 mL [facility] Color CSFOrdered By: Razia longo on 12-22-2022 Color (CSF) Colorless Colorless [facility] Glucose, CSF #2on 12-22-2022 Glucose, CSF #2 71 mg/dL High 40-70 [facility] Comment on above: Order Comment: Comme nt tube 4 Performed By: #### C BC, PT, PTT #### [facility] [address] [place] [address] [place] Glucose, Spinal Fluidon Glucose, Spinal Fluid 73 mg/dL High 40-70 [facility] Comment on above: Order Comment: Comme nt tube 1 Performed By: #### C SFCCDIFF #2, CSF TP #2, CSF GLU #2, CSF GLU, CSF TP, GS, AERC, CSFCCDIFF #### [facility] [address] [place] [address] Gram Stainon 12-22-2022 Microscopic observation Gram stain Nom (Unsp spec) Comment tube 2 Gram Stain Result No White Blood Cells Seen No Bacteria Seen PERFORMED BY: [place] [address] PATHOLOGIST TOOLROOM KEEPER ALLEN COATES M.D. [facility] Comment on above: Performed By: #### C SFCCDIFF #2, CSF TP #2, CSF GLU #2, CSF GLU, CSF TP, GS, AERC, CSFCCDIFF #### [facility] [address] [place] [address] IR guided lumbar puncture LP on 12-22-2022 IR guided lumbar puncture LP [facility] [address] Interventional Radiology Rpt Signed Patient: Yani Stevens MR#: [id number] : 1990 Acct:[id number] Age/Sex: 32 / F ADM Date: 12/22/22 Loc: XD Room: Type: [facility] CLI Attending Dr: Razia Muller PADDER CUSHION-RECORD LIBRARIAN-C Copies to: Razia Muller APRN-RECORD LIBRARIAN-C Ordering Provider: TONJA Jimenez Date of Service: [...] Vernon Lin M.D.12/22/2022 1:07 PM Dictation Location: [place] [address] Transcribed By: [facility] 12/22/22 1307 Dictated By: Vernon Lin II, MD 12/22/22 7208 Signed By: 12/22/22 1307 [facility] 12-22-2022 L ---- Specimen: [id number] Received: 12/22/22 Status: TERRANCE Earlyhe Num: [id number] Spec Type: Cytology Subm Dr: TONJA Jimenez Tissues: A CSF (CSF) Procedures: Cyto Prepstain, DIFF QWIK, PAPSTN Age/ Patient Sex Location Account Attending Physician Yani Stevens 32/F XD [id number] TONJA Jimenez SPEC NUM: [id number] RECD: 12/22/22 STATUS: TERRANCE PERLA NUM: [id number] TOMASA: 12/22/[address] [facility] [address]: TONJA Jimenez ENTERED: 12/22/[address] [facility] [address]: Vernon Lin II, MD SPEC TYPE: Cytology DEPT: [facility] ENTERED BY: [id number] RECV BY: [id number] ORDERED: Cyto Prepstain, DIFF QWIK, PAPSTN ORDERED: [...] [id number] Received: 12/22/22 Status: TERRANCE Perla Num: [id number] Spec Type: Cytology Subm Dr: Razia Muller, PADDER CUSHION-RECORD LIBRARIAN-C Tissues: A CSF (CSF) Procedures: Cyto Prepstain, DIFF QWIK, PAPSTN Patient: StevensYani andrews [id number] (Continued) Signed (signature on file) Dimas De Anda MD 12/26/22 0905 Normal [facility] Manual cerebrospinal fluid e rythrocytes count (number/volume)Ordered By: Razia Muller on 12-22-2022 RBC Manual cnt (CSF) [#/Vol] 1 /uL [facility] Comment on above: The reference interv al and other method performance specifications have not been established for this body fluid. The test result must be integrated into the clinical context for interpretation. No Panel InformationOrdered By: Razia Muller on 12-22-2022 CSF Appearance Clear Clear [facility] CSF Eosinophils N/A [facility] CSF Lymphocytes 7 [facility] Comment on above: The reference interv al and other method performance specifications have not been established for this body fluid. The test result must be integrated into the clinical context for interpretation. CSF Monocytes N/A [facility] CSF Neutrophils N/A [facility] CSF Tube Number Tube number: 4 [facility] Nucleated cells [#/volume] i n Cerebral spinal fluid by Manual countOrdered By: Razia Muller on 12-22-2022 Nucleated cells Manual cnt (CSF) [#/Vol] 0.001 10*3/uL 0-5 [facility] Total Protein, CSF #2on 09-0 Total Protein, CSF #2 31 mg/dL Normal 15-45 [facility] Comment on above: Order Comment: Comme nt tube 4 Result Comment: PERF ORMED BY: [facility] [address] [place] [address] PATHOLOGIST TOOLROOM KEEPER ALLEN COATES M.D. Performed By: #### C BC, PT, PTT #### [facility] [address] [place] [address] Total Protein, Spinal Fluido n 12-22-2022 Total Protein, Spinal Fluid 34 mg/dL Normal 15-45 [facility] Comment on above: Order Comment: Comme nt tube 1 Result Comment: PERF ORMED BY: [place] [address] PATHOLOGIST TOOLROOM KEEPER ALLEN COATES M.D. Performed By: #### C BC, PT, PTT #### [facility] [address] [place] [address] Activated partial thrombopla stin time (aPTT) in platelet poor plasma by coagulation aOrdered By: Razia Muller on 12-20-2022 aPTT Coag (PPP) [Time] 32.8 s 25.1-36.5 [facility] Basophils Auto (Bld) [#/Vol] Ordered By: Razia Muller on 12-20-2022 Basophils (Bld) [#/Vol] 0.0 10*3/uL 0.0-0.2 [facility] Basophils/100 WBC Auto (Bld) Ordered By: Razia Muller on 12-20-2022 Basophils/100 WBC (Bld) 0.5 % . [facility] Complete Blood Count Auto Di ffon 12-20-2022 Basophils (Bld) [#/Vol] 0.0 10*3/uL Normal 0.0-0.2 [facility] Comment on above: Result Comment: PERF ORMED BY: [place] [address] PATHOLOGIST TOOLROOM KEEPER ALLEN COATES M.D. Performed By: #### C BC, PT, PTT #### [facility] [address] [place] [address] [place] Basophils/100 WBC (Bld) 0.5 % Normal . [facility] Comment on above: Performed By: #### C BC, PT, PTT #### [address] Eosinophils (Bld) [#/Vol] 0.2 10*3/uL Normal 0.0-0.45 [facility] Comment on above: Performed By: #### C BC, PT, PTT #### [address] Eosinophils/100 WBC (Bld) 3.2 % Normal . [facility] Comment on above: Performed By: #### C BC, PT, PTT #### [address] Erythrocyte distribution width (RBC) [Ratio] 13.9 % Normal 11.9-15.3 [facility] Comment on above: Performed By: #### C BC, PT, PTT #### [address] Hematocrit (Bld) [Volume fraction] 40.9 % Normal 34.0-46.4 [facility] Comment on above: Performed By: #### C BC, PT, PTT #### [address] Hemoglobin (Bld) [Mass/Vol] 13.6 g/dL Normal 11.8-15.4 [facility] Comment on above: Performed By: #### C BC, PT, PTT #### [address] Lymphocytes (Bld) [#/Vol] 2.1 10*3/uL Normal 1.00-4.8 [facility] Comment on above: Performed By: #### C BC, PT, PTT #### [address] Lymphocytes/100 WBC (Bld) 29.1 % Normal . [facility] Comment on above: Performed By: #### C BC, PT, PTT #### [address] MCH (RBC) [Entitic mass] 27.6 pg Normal 24.7-34.3 [facility] Comment on above: Performed By: #### C BC, PT, PTT #### [address] MCV (RBC) [Entitic vol] 83.0 fL Normal 80-100 [facility] Comment on above: Performed By: #### C BC, PT, PTT #### [address] Mean Corpuscular HGB Conc 33.2 g/dL Normal 32.0-35.0 [facility] Comment on above: Performed By: #### C BC, PT, PTT #### [address] Monocytes (Bld) [#/Vol] 0.5 10*3/uL Normal 0.0-0.8 [facility] Comment on above: Performed By: #### C BC, PT, PTT #### [address] Monocytes/100 WBC (Bld) 6.3 % Normal . [facility] Comment on above: Performed By: #### C BC, PT, PTT #### [address] Neutrophils (Bld) [#/Vol] 4.4 10*3/uL Normal 1.8-7.7 [facility] Comment on above: Performed By: #### C BC, PT, PTT #### [address] Neutrophils/100 WBC (Bld) 60.9 % Normal . [facility] Comment on above: Performed By: #### C BC, PT, PTT #### [address] NRBC% 0.1 /100{WBC} Normal 0-0.5 [facility] Comment on above: Performed By: #### C BC, PT, PTT #### [address] Platelet mean volume (Bld) [Entitic vol] 8.1 fL Normal 6.3-10.7 [facility] Comment on above: Performed By: #### C BC, PT, PTT #### [address] Platelets (Bld) [#/Vol] 222 10*3/uL Normal 150-450 [facility] Comment on above: Performed By: #### C BC, PT, PTT #### [facility] [address] RBC (Bld) [#/Vol] 4.93 10*6/uL Normal 3.60-5.00 [facility] Comment on above: Performed By: #### C BC, PT, PTT #### [facility] [address] WBC (Bld) [#/Vol] 7.3 10*3/uL Normal 3.8-11.6 [facility] Comment on above: Performed By: #### C BC, PT, PTT #### [facility] [address] Eosinophils Auto (Bld) [#/Vo l]Ordered By: Razia Muller on 12-20-2022 Eosinophils (Bld) [#/Vol] 0.2 10*3/uL 0.0-0.45 [facility] Eosinophils/100 WBC Auto (Bl d)Ordered By: Razia Muller on 12-20-2022 Eosinophils/100 WBC (Bld) 3.2 % . [facility] Erythrocyte distribution wid th Auto (RBC) [Ratio]Ordered By: Razia Muller on 12-20-2022 Erythrocyte distribution width (RBC) [Ratio] 13.9 % 11.9-15.3 [facility] Hematocrit Auto (Bld) [Volum e fraction]Ordered By: Razia Muller on 12-20-2022 Hematocrit (Bld) [Volume fraction] 40.9 % 34.0-46.4 [facility] Hemoglobin [Mass/volume] in BloodOrdered By: Razia Muller on 12-20-2022 Hemoglobin (Bld) [Mass/Vol] 13.6 g/dL 11.8-15.4 [facility] INR in Platelet poor plasma by Coagulation assayOrdered By: Razia Muller on 12-20-2022 INR Coag (PPP) [Relative time] 1.0 {INR} [facility] Comment on above: INR Therapeutic Rang [...] PT Coag (PPP) [Time] 11.1 s 9.0-12.9 [facility] Leukocytes [#/volume] correc burke for nucleated erythrocytes in Blood by Automated counOrdered By: Razia Muller on 12-20-2022 WBC corrected for nucl RBC Auto (Bld) [#/Vol] 7.3 10*3/uL 3.8-11.6 [facility] Lymphocytes Auto (Bld) [#/Vo l]Ordered By: Razia Mluler on 12-20-2022 Lymphocytes (Bld) [#/Vol] 2.1 10*3/uL 1.00-4.8 [facility] Lymphocytes/100 WBC Auto (Bl d)Ordered By: Razia Muller on 12-20-2022 Lymphocytes/100 WBC (Bld) 29.1 % . [facility] MCH Auto (RBC) [Entitic mass ]Ordered By: Razia Muller on 12-20-2022 MCH (RBC) [Entitic mass] 27.6 pg 24.7-34.3 [facility] MCHC Auto (RBC) [Mass/Vol]Or dered By: Razia Muller on 12-20-2022 MCHC (RBC) [Mass/Vol] 33.2 g/dL 32.0-35.0 [facility] MCV Auto (RBC) [Entitic vol] Ordered By: Razia Muller on 12-20-2022 MCV (RBC) [Entitic vol] 83.0 fL 80-100 [facility] Monocytes Auto (Bld) [#/Vol] Ordered By: Razia Muller on 12-20-2022 Monocytes (Bld) [#/Vol] 0.5 10*3/uL 0.0-0.8 [facility] Monocytes/100 WBC Auto (Bld) Ordered By: Razia Muller on 12-20-2022 Monocytes/100 WBC (Bld) 6.3 % . [facility] Neutrophils Auto (Bld) [#/Vo l]Ordered By: Razia Muller on 12-20-2022 Neutrophils (Bld) [#/Vol] 4.4 10*3/uL 1.8-7.7 [facility] Neutrophils/100 WBC Auto (Bl d)Ordered By: Razia Muller on 12-20-2022 Neutrophils/100 WBC (Bld) 60.9 % . [facility] Nucleated erythrocytes [Pres ence] in Blood by Automated countOrdered By: Razia Muller on 12-20-2022 Nucleated RBC Auto Ql (Bld) 0.1 /100{WBC} 0-0.5 [facility] Partial Thromboplastin Timeo n 12-20-2022 aPTT Coag (Bld) [Time] 32.8 s Normal 25.1-36.5 [facility] Comment on above: Result Comment: PERF ORMED BY: [place] [address] PATHOLOGIST TOOLROOM KEEPER ALLEN COATES M.D. Performed By: #### C BC, PT, PTT #### [address] Platelet mean volume Auto (B ld) [Entitic vol]Ordered By: Razia Muller on 12-20-2022 Platelet mean volume (Bld) [Entitic vol] 8.1 fL 6.3-10.7 [facility] Platelets Auto (Bld) [#/Vol] Ordered By: Razia Muller on 12-20-2022 Platelets (Bld) [#/Vol] 222 10*3/uL 150-450 [facility] Prothrombin Time INRon 12-20 INR Coag (PPP) [Relative time] 1.0 {INR} Normal [facility] Comment on above: Result Comment: INR [...] By: #### C BC, PT, PTT #### [facility] [address] [place] [id number] [facility] PT Coag (PPP) [Time] 11.1 s Normal 9.0-12.9 [facility] Comment on above: Performed By: #### C BC, PT, PTT #### [facility] [address] [place] [id number] [facility] RBC Auto (Bld) [#/Vol]Ordere d By: Razia Muller on 12-20-2022 RBC (Bld) [#/Vol] 4.93 10*6/uL 3.60-5.00 [facility] WBC Auto (Bld) [#/Vol]Ordere d By: Razia Muller on 12-20-2022 WBC (Bld) [#/Vol] 7.3 10*3/uL 3.8-11.6 [facility] POC Glucose Fingerstickon Glucose [Mass/Vol] 85 mg/dL 65 - 105 mg/dL [facility] C.trachomatis N.gonorrhoeae DNA, Urineon 07-21-2022 Chlamydia sp DNA SARANYA+probe Ql (U) Negative NEGATIVE [facility] Comment on above: CHLAMYDIA TRACHOMATI S [...] gonorrhoeae DNA SARANYA+probe Ql (U) Negative NEGATIVE [facility] Comment on above: NEISSERIA GONORRHOEA E [...] nucleic acid target. Specimen Description .URINE [facility] CBC auto differentialon 06-23 Absolute Eos # [facility] Absolute Immature Granulocyte 0.12 [facility] Absolute Lymph # 1.21 [facility] Absolute Bland # 0.69 [facility] Basophils (Bld) [#/Vol] 0.03 10*3/uL [facility] Basophils/100 WBC (Bld) 0 % 0 - 2 % [facility] Eosinophils/100 WBC (Bld) 0 % Low 1 - 4 % [facility] Hematocrit (Bld) [Volume fraction] 33.5 % Low 36.3 - 47.1 % [facility] Hemoglobin (Bld) [Mass/Vol] 10.8 g/dL Low 11.9 - 15.1 g/dL [facility] Immature granulocytes/100 WBC (Bld) 1 % High 0 [facility] Interpretation and review of laboratory results Abnormal [facility] Lymphocytes/100 WBC (Bld) 8 % Low 24 - 43 % [facility] MCH (RBC) [Entitic mass] 28.4 pg 25.2 - 33.5 pg [facility] MCHC (RBC) [Mass/Vol] 32.2 g/dL 28.4 - 34.8 g/dL [facility] MCV (RBC) [Entitic vol] 88.2 fL 82.6 - 102.9 fL [facility] Monocytes/100 WBC (Bld) 4 % 3 - 12 % [facility] NRBC Automated 0.0 0.0 per 100 WBC [facility] Platelet distribution width (Bld) [Ratio] 13.2 % 11.8 - 14.4 % [facility] Platelet mean volume (Bld) [Entitic vol] 10.5 fL 8.1 - 13.5 fL [facility] Platelets (Bld) [#/Vol] 197 10*3/uL [facility] RBC (Bld) [#/Vol] 3.80 10*6/uL Low 3.95 - 5.1 1 m/uL [facility] Segmented neutrophils/100 WBC (Bld) 87 % High 36 - 65 % [facility] Segs Absolute 13.58 High [facility] WBC (Bld) [#/Vol] 15.6 10*3/uL High [facility] Yung [facility] Culture, Urineon 07-21-2022 Microorganism identified Cx Nom (Unsp spec) NO SIGNIFICANT GROWTH [facility] Specimen Description .CLEAN CATCH URINE [facility] POC Glucose Fingerstickon Glucose [Mass/Vol] 108 mg/dL High 65 - 105 mg/dL [facility] Interpretation and review of laboratory results Abnormal [facility] Glucose [Mass/Vol] 95 mg/dL 65 - 105 mg/dL [facility] Glucose [Mass/Vol] 123 mg/dL High 65 - 105 mg/dL [facility] Interpretation and review of laboratory results Abnormal [facility] CBCon 07-20-2022 Hematocrit (Bld) [Volume fraction] 32.8 % Low 36.3 - 47.1 % [facility] Hemoglobin (Bld) [Mass/Vol] 11.0 g/dL Low 11.9 - 15.1 g/dL [facility] Interpretation and review of laboratory results Abnormal [facility] MCH (RBC) [Entitic mass] 28.6 pg 25.2 - 33.5 pg [facility] MCHC (RBC) [Mass/Vol] 33.5 g/dL 28.4 - 34.8 g/dL [facility] MCV (RBC) [Entitic vol] 85.4 fL 82.6 - 102.9 fL [facility] NRBC Automated 0.0 0.0 per 100 WBC [facility] Platelet distribution width (Bld) [Ratio] 13.2 % 11.8 - 14.4 % [facility] Platelet mean volume (Bld) [Entitic vol] 10.8 fL 8.1 - 13.5 fL [facility] Platelets (Bld) [#/Vol] 200 10*3/uL [facility] RBC (Bld) [#/Vol] 3.84 10*6/uL Low 3.95 - 5.1 1 m/uL [facility] WBC (Bld) [#/Vol] 10.2 10*3/uL [facility] Comprehensive Metabolic Pane mary 07-20-2022 Albumin [Mass/Vol] 3.3 g/dL Low 3.5 - 5.2 g/dL [facility] Albumin/Globulin [Mass ratio] 1.0 {ratio} 1.0 - 2.5 [facility] ALP [Catalytic activity/Vol] 142 U/L High 35 - 104 U/L [facility] ALT [Catalytic activity/Vol] 15 U/L 5 - 33 U/L [facility] Anion gap [Moles/Vol] 12 mmol/L 9 - 17 mmol/L [facility] AST [Catalytic activity/Vol] 15 U/L NINF - 32 U/L [facility] Bilirubin [Mass/Vol] mg/dL Low 0.3 - 1 .2 mg/dL [facility] Calcium [Mass/Vol] 9.0 mg/dL 8.6 - 10. 4 mg/dL [facility] Chloride [Moles/Vol] 104 mmol/L 98 - 10 7 mmol/L [facility] CO2 [Moles/Vol] 21 mmol/L 20 - 31 mmol/L [facility] Creatinine [Mass/Vol] 0.41 mg/dL Low 0.50 - 0.90 mg/dL [facility] GFR/1.73 sq M.predicted MDRD (S/P/Bld) [Vol rate/Area] - PINF [facility] Comment on above: These results are [...] 135 mg/dL High 70 - 99 mg/dL [facility] Interpretation and review of laboratory results Abnormal [facility] Potassium [Moles/Vol] 3.8 mmol/L 3.7 - 5.3 mmol/L [facility] Protein [Mass/Vol] 6.5 g/dL 6.4 - 8.3 g/dL [facility] Sodium [Moles/Vol] 137 mmol/L 135 - 144 mmol/L [facility] Urea nitrogen [Mass/Vol] 8 mg/dL 6 - 20 mg/dL [facility] DRUG SCREEN MULTI URINEon Amphetamine Screen, Ur Negative NEGATIVE [facility] Comment on above: (Positive cutoff 1000 ng/mL) Barbiturate Screen, Ur Negative NEGATIVE [facility] Comment on above: (Positive cutoff 200 ng/mL) Benzodiazepine Screen, Urine Negative NEGATIVE [facility] Comment on above: (Positive cutoff 200 ng/mL) Cannabinoid Scrn, Ur Negative NEGATIVE [facility] Comment on above: (Positive cutoff 50 ng/mL) Cocaine Metabolite, Urine Negative NEGATIVE [facility] Comment on above: (Positive cutoff 300 ng/mL) Fentanyl, Ur Negative NEGATIVE [facility] Comment on above: (Positive cutoff 5 ng/ml) Methadone Screen, Urine Negative NEGATIVE [facility] Letters [facility] Comment on above: (Positive cutoff 300 ng/mL) Opiates, Urine Negative NEGATIVE [facility] SYSTEMReset [employer] Comment on above: (Positive cutoff 300 ng/mL) Oxycodone Screen, Ur Negative NEGATIVE [facility] Comment on above: (Positive cutoff 100 ng/mL) Phencyclidine, Urine Negative NEGATIVE [facility] Comment on above: (Positive cutoff 25 ng/mL) Test Information Assay provides medic al screening only. The absence of expected drug(s) and/or metabolite(s) may indicate diluted or adulterated urine, limitations of testing or timing of collection. [facility] [employer] [facility] Comment on above: Testing for legal pu rposes should be confirmed by another method. To request confirmation of test result, please call the lab within 7 days of sample submission. [facility] GROUP B STREP CULTUREon 06-23 S. agalactiae Ag Ql (Unsp spec) Culture Observations: NEGATIVE FOR GROUP B STREPTOCOCCUS. Normal [facility] Comment on above: Performed By: #### [id number] #### [facility] [address] [address] [address] Valeria Farris POC Glucose Fingerstickon Glucose [Mass/Vol] 116 mg/dL High 65 - 105 mg/dL [facility] Interpretation and review of laboratory results Abnormal [facility] Protein / creatinine ratio, urineon 07-20-2022 Creatinine, Ur 95.9 mg/dL 28.0 - 217.0 mg/dL [facility] Protein (U) [Mass/Vol] 17 mg/dL [facility] Comment on above: No normal range esta blished. Urine Total Protein Creatinine Ratio 0.18 0.00 - 0.20 [facility] T. pallidum Abon 07-20-2022 T. pallidum Ab IA Ql (S) Non-Reactive NONREACTIVE [facility] Comment on above: T. pallidum antibodies are not detected. There is no serological evidence of infection with T. pallidum (early primary syphilis cannot be excluded). Retest in 2-4 weeks if syphilis is clinically suspect. [facility] TYPE AND SCREENon 07-20-2022 ABO/Rh Positive [facility] Arm Band Number BE [id number] [facility] Expiration Date 07/23/2022,5592 [facility] US CHINYERE DOP LEG LTon 07-20-19 [...] by: GERARD GONZALEZ Date: 2022-07-19 15:06 Normal [facility] COVID + FLU Quick Testingon 07-18-2022 SARS-CoV-2 (COVID-19) RNA SARANYA+probe Ql (Unsp spec) Negative [employer] Other COVID + FLU Quick Testing Negative [employer] Other Quick Strepon 07-18-2022 S. pyogenes Org specific cx Ql (Throat) Negative [employer] Other Quick Strep [employer] Other US PREG BIOPHY W NON STRESSo [...] by: GERARD GONZALEZ Date: 2022-07-17 15:56 Normal [facility] Brain Natriuretic Peptideon 07-15-2022 Natriuretic peptide B (Bld) [Mass/Vol] pg/mL [place] - 300 pg/mL [facility] Comment on above: An age-independent cutoff point of 300 pg/ml has a 98% negative predictive value excluding acute heart failure. [facility] Comprehensive metabolic pane mary 07-15-2022 Albumin [Mass/Vol] 3.4 g/dL Low 3.5 - 5.2 g/dL [facility] Albumin/Globulin [Mass ratio] 1.0 {ratio} 1.0 - 2.5 [facility] ALP [Catalytic activity/Vol] 138 U/L High 35 - 104 U/L [facility] ALT [Catalytic activity/Vol] 16 U/L 5 - 33 U/L [facility] Anion gap [Moles/Vol] 12 mmol/L 9 - 17 mmol/L [facility] AST [Catalytic activity/Vol] 23 U/L NINF - 32 U/L [facility] Bilirubin [Mass/Vol] mg/dL Low 0.3 - 1 .2 mg/dL [facility] Calcium [Mass/Vol] 8.9 mg/dL 8.6 - 10. 4 mg/dL [facility] Chloride [Moles/Vol] 102 mmol/L 98 - 10 7 mmol/L [facility] CO2 [Moles/Vol] 19 mmol/L Low 20 - 31 mmol/L [facility] Creatinine [Mass/Vol] 0.38 mg/dL Low 0.50 - 0.90 mg/dL [facility] GFR/1.73 sq M.predicted MDRD (S/P/Bld) [Vol rate/Area] - PINF [facility] Comment on above: These results are [...] 131 mg/dL High 70 - 99 mg/dL [facility] Interpretation and review of laboratory results Abnormal [facility] Potassium [Moles/Vol] 3.5 mmol/L Low 3.7 - 5.3 mmol/L [facility] Protein [Mass/Vol] 6.7 g/dL 6.4 - 8.3 g/dL [facility] Sodium [Moles/Vol] 133 mmol/L Low 135 - 144 mmol/L [facility] Urea nitrogen [Mass/Vol] 9 mg/dL 6 - 20 mg/dL [facility] HIV Screenon 07-15-2022 HIV 1+2 Ab+HIV1 p24 Ag IA Ql Non-Reactive NONREACTIVE [facility] Comment on above: No laboratory eviden ce of HIV infection. If acute HIV infection is suspected, consider testing for HIV-1 RNA. [facility] Protein / Creatinine Ratio, Urineon 07-15-2022 Creatinine, Ur 33.5 mg/dL 28.0 - 217.0 mg/dL [facility] Protein (U) [Mass/Vol] 5 mg/dL [facility] [employer] Comment on above: No normal range esta blished. Urine Total Protein Creatinine Ratio 0.15 0.00 - 0.20 [facility] [employer] TYPE AND SCREENon 07-15-2022 ABO/Rh Positive [facility] Arm Band Number BE [id number] [facility] Expiration Date 07/18/2022,2359 [facility] Troponinon 07-15-2022 Troponin I.cardiac DL <= 0.01 ng/mL [Mass/Vol] ng/L 0 - 14 ng/L [facility] Comment on above: High Sensitivity Tro ponin values cannot be compared with other Troponin methodologies. [facility] XR CHEST (SINGLE VIEW FRONTA L)on 07-15-2022 No acute process. [facility] EXAMINATION: ONE XRAY VIEW OF THE CHEST 07/15/2022 4:26 pm COMPARISON: None. HISTORY: ORDERING SYSTEM PROVIDED HISTORY: shortness of breath TECHNOLOGIST PROVIDED HISTORY: Concerns for COVID shortness of breath FINDINGS: The lungs are without acute focal process. There is no effusion or pneumothorax. The cardiomediastinal silhouette is without acute process. The osseous structures are without acute process. [facility] Abner Dela Cruz MD - [...] without acute process. IMPRESSION: No acute process. 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 Valeria Farris Clarity (U) CLEAR Normal CLEAR [facility] Comment on above: Performed By: #### [id number] #### [facility] [address] [place] [address] Dr. Valeria Farris Color (U) LT. YELLOW Normal YELLOW [facility] Comment on above: Performed By: #### [id number] #### [facility] [address] [place] [address] Dr. Valeria Farris Glucose Ql (U) Negative Normal NEGATIVE [facility] Comment on above: Performed By: #### [id number] #### [facility] [address] [place] [address] Dr. Valeria Farris Hemoglobin Ql (U) LARGE Abnormal NEGATIVE [facility] Comment on above: Performed By: #### [id number] #### [facility] [address] [place] [address] Dr. Valeria Farris Ketones Ql (U) Negative Normal NEGATIVE [facility] Comment on above: Performed By: #### [id number] #### [facility] [address] [place] [address] Dr. Valeria Farris LEUKOCYTES Negative Normal NEGATIVE [facility] Comment on above: Performed By: #### [id number] #### [facility] [address] [place] [address] Dr. Valeria Farris Nitrite Ql (U) Negative Normal NEGATIVE [facility] Comment on above: Performed By: #### [id number] #### [facility] [address] [place] [address] Dr. Valeria Farris pH (U) 6.5 [pH] Normal 5-9 [facility] Comment on above: Performed By: #### [id number] #### [facility] [address] [place] [address] Dr. Valeria Farris SPEC GRAVITY <=1.005 Abnormal 1.005-<=1.02 5 [facility] Comment on above: Performed By: #### [id number] #### [facility] [address] [place] [address] Dr. Valeria Farris UA PROTEIN Negative Normal NEGATIVE/ TRACE [facility] Comment on above: Performed By: #### [id number] #### [facility] [address] [place] [address] Dr. Valeria Farris UR MICRO IND INDICATED Normal [facility] Comment on above: Performed By: #### [id number] #### [facility] [address] [place] [address] Dr. Valeria Farris Urobilinogen Qn (U) 0.2 {Manolo'U}/dL Normal 0.2 - 1. 0 [facility] Comment on above: Performed By: #### [id number] #### [facility] [address] [place] [address] Dr. Valeria Farris URINE MICROSCOPIC ONLYon BACTERIA NONE SEEN Normal NONE SEEN [facility] Comment on above: Performed By: #### [id number] #### [facility] [address] [place] [address] Dr. Valeria Farris Bacteria identified Cx Nom (U) NOT INDICATED Normal [facility] Comment on above: Performed By: #### [id number] #### [facility] [address] [place] [address] Dr. Valeria Farris CAST NONE SEEN Normal NONE SEEN [facility] Comment on above: Performed By: #### [id number] #### [facility] [address] [place] [address] Dr. Valeria Farris Crystals LM Nom (Urine sed) NONE SEEN Normal NONE SEEN [facility] Comment on above: Performed By: #### [id number] #### [facility] [address] [place] [address] Dr. Valeria Farris Epithelial cells LM Ql (Urine sed) FEW Abnormal NONE SEEN /RARE [facility] Comment on above: Performed By: #### [id number] #### [facility] [address] [place] [address] Dr. Valeria Farris MUCOUS NONE SEEN Normal NONE SEEN [facility] Comment on above: Performed By: #### [id number] #### [facility] [address] [place] [address] Dr. Valeria Farris RBC 5-10 Abnormal 0-2 [facility] Comment on above: Performed By: #### [id number] #### [facility] [address] [place] [address] Dr. Valeria Farris WBC 0-2 Abnormal NONE SEEN [facility] Comment on above: Performed By: #### [id number] #### [facility] [address] [place] [address] Dr. Valeria Farris No Panel Informationon 06-29 [facility] T4, Freeon 06-29-2022 Free T4 [Mass/Vol] 0.82 ng/dL Low 0.93 - 1. 70 ng/dL [facility] Interpretation and review of laboratory results Abnormal [facility] TSHon 06-29-2022 TSH Qn 2.16 m[IU]/L [facility] US PREG BIOPHY W NON STRESSo [...] ALINE GALICIA Date: 2022-06-26 07:50 Normal [facility] US PREG BIOPHY W NON STRESSo [...] GERARD GONZALEZ Date: 2022-06-19 15:28 Normal [facility] CREATININE CLEARon 3 BODY SURF AREA 2.35 Normal [facility] Comment on above: Performed By: #### DAPHNE SUN #### [facility] [address] [address] [address] Valeria MAST CLEARANCE 128.94 ml/min Critically high 75.00-115.00 [facility] Comment on above: Performed By: #### DAPHNE SUN #### [facility] [address] [place] [address] Dr. Valeria Farris CREA, 24 HR UR 882.73 mg/24 hr Normal 800.00-1,8 00 .00 [facility] Comment on above: Performed By: #### U ACSZAID LYLESICRO #### [facility] [address] [place] [address] Dr. Valeria Farris Creatinine [Mass/Vol] 0.35 mg/dL Critically low 0.55-1.02 [facility] Comment on above: Performed By: #### U ACSZAID LYLESICRO #### [facility] [address] [place] [address] Dr. Valeria Farris URINE CREAT 21.53 mg/dL Normal 20.00-300.00 [facility] Comment on above: Performed By: #### U ACSTRUPTI ICRO #### [facility] [address] [place] [address] Dr. Valeria Farris PROTEIN 24HR URINEon 023 T PROT, 24 HR UR 241.9 mg/24 hr Critically high <=149.1 [facility] Comment on above: Performed By: #### P [id number] #### [facility] [address] [place] [address] Dr. Valeria Farris UR PROT 5.9 mg/dL Normal <=11.9 [facility] Comment on above: Performed By: #### P [id number] #### [facility] [address] [place] [address] Dr. Valeria Farris UR TOT VOL 4100 ml/24 HR Normal [facility] Comment on above: Performed By: #### P [id number] #### [facility] [address] [place] [address] Dr. Valeria Farris Performed By: #### U ACSALEX LYLESRO #### [facility] [address] [place] [address] Dr. Valeria Farris CBC AUTO DIFFon 06-17-2022 BASO # 0.0 103/ul Normal 0.0-0.1 [facility] Comment on above: Performed By: #### G LU1HR #### [facility] [address] [address] [address] Valeria Farris Basophils/100 WBC (Bld) 0.4 % Normal 0.2-2.0 [facility] Comment on above: Performed By: #### G LU1HR #### [facility] [address] [address] [address] Valeria Farris EO # 0.2 103/ul Normal 0.0-0.7 [facility] Comment on above: Performed By: #### G LU1HR #### [facility] [address] [address] [address] Valeria Farris Eosinophils/100 WBC (Bld) 2.0 % Normal 0.9-7.0 [facility] Comment on above: Performed By: #### G LU1HR #### [facility] [address] [place] [address] Dr. Valeria Farris Erythrocyte distribution width (RBC) [Ratio] 13.3 % Normal 11.0-15.0 [facility] Comment on above: Performed By: #### G LU1HR #### [facility] [address] [place] [address] Dr. Valeria Farris Hematocrit (Bld) [Volume fraction] 31.8 % Critically low 36.0-48.0 [facility] Comment on above: Performed By: #### G LU1HR #### [facility] [address] [place] [address] Dr. Valeria Farris Hemoglobin (Bld) [Mass/Vol] 10.8 g/dL Critically low 12.0-16.0 [facility] Comment on above: Performed By: #### G LU1HR #### [facility] [address] [address] [address] Valeria Farris IG # 0.09 10e3/ul Critically high 0.00-0.03 [facility] Comment on above: Performed By: #### G LU1HR #### [facility] [address] [address] [address] Valeria Farris IG % 0.8 % Critically high 0.0-0.5 [facility] Comment on above: Performed By: #### G LU1HR #### [facility] [address] [address] [address] Valeria Farris LYMPH # 2.2 103/ul Normal 1.2-3.8 [facility] Comment on above: Performed By: #### G LU1HR #### [facility] [address] [address] [address] Valeria Farris Lymphocytes/100 WBC (Bld) 20.0 % Critically low 20.5-60.0 [facility] Comment on above: Performed By: #### G LU1HR #### [facility] [address] [address] [address] Valeria Farris MANUAL DIFF REQ NO Normal [facility] Comment on above: Performed By: #### G LU1HR #### [facility] [address] [place] [address] Dr. Valeria Farris MCH (RBC) [Entitic mass] 28.4 pg Normal 26.7-34.0 [facility] Comment on above: Performed By: #### G LU1HR #### [facility] [address] [place] [address] Dr. Valeria Farris MCHC (RBC) [Mass/Vol] 34.0 g/dL Normal 29.9-35.2 [facility] Comment on above: Performed By: #### G LU1HR #### [facility] [address] [place] [address] Dr. Valeria Farris MCV (RBC) [Entitic vol] 83.7 fL Normal 81.0-99.0 [facility] Comment on above: Performed By: #### G LU1HR #### [facility] [address] [address] [address] Valeria Farris MONO # 0.9 103/ul Critically high 0.3-0.8 [facility] Comment on above: Performed By: #### G LU1HR #### [facility] [address] [address] [address] Valeria Farris Monocytes/100 WBC (Bld) 7.9 % Normal 1.7-12.0 [facility] Comment on above: Performed By: #### G LU1HR #### [facility] [address] [place] [address] Dr. Valeria Farris NEUT # 7.7 103/ul Critically high 1.4-6.5 [facility] Comment on above: Performed By: #### G LU1HR #### [facility] [address] [place] [address] Dr. Valeria Farris Neutrophils/100 WBC (Bld) 68.9 % Normal 43.0-75.0 [facility] Comment on above: Performed By: #### G LU1HR #### [facility] [address] [place] [address] Dr. Valeria Farris Platelet mean volume (Bld) [Entitic vol] 10.7 fL Normal 9.5-13.5 [facility] Comment on above: Performed By: #### G LU1HR #### [facility] [address] [place] [address] Dr. Valeria Farris PLT 195 103/ul Normal 150-450 [facility] Comment on above: Performed By: #### G [id number] #### [facility] [address] [place] [address] Dr. Valeria Farris RBC 3.80 106/ul Critically low 4.20-5.40 [facility] Comment on above: Performed By: #### G LU1HR #### [facility] [address] [place] [address] Dr. Valeria Farris WBC 11.2 103/ul Critically high 4.0-11.0 [facility] Comment on above: Performed By: #### G LU1HR #### [facility] [address] [place] [address] Dr. Valeria Farris LDHon 06-17-2022 LDH 230 U/L Normal 81-234 [facility] Comment on above: Performed By: #### P [id number] #### [facility] [address] [place] [address] Dr. Valeria Farris PROF 14(COMP METB)on 023 Albumin [Mass/Vol] 2.6 g/dL Critically low 3.4-5.0 [facility] Comment on above: Performed By: #### P [id number] #### [facility] [address] [place] [address] Dr. Valeria Farris Albumin/Globulin [Mass ratio] 0.6 {ratio} Normal [facility] Comment on above: Performed By: #### P [id number] #### [facility] [address] [address] [address] Valeria Farris ALP [Catalytic activity/Vol] 112 U/L Normal 46-116 [facility] Comment on above: Performed By: #### P [id number] #### [facility] [address] [place] [address] Dr. Valeria Farris ALT [Catalytic activity/Vol] 18 U/L Normal 14-59 [facility] Comment on above: Performed By: #### P [id number] #### [facility] [address] [place] [address] Dr. Valeria Farris Anion gap [Moles/Vol] 13.1 mmol/L Normal [facility] Comment on above: Performed By: #### P [id number] #### [facility] [address] [place] [address] Dr. Valeria Farris AST [Catalytic activity/Vol] 22 U/L Normal 15-37 [facility] Comment on above: Performed By: #### P [id number] #### [facility] [address] [place] [address] Dr. Valeria Farris Bilirubin [Mass/Vol] 0.2 mg/dL Normal 0.2-1.0 [facility] Comment on above: Performed By: #### P [id number] #### [facility] [address] [place] [address] Dr. Valeria Farris Calcium [Mass/Vol] 9.1 mg/dL Normal 8.5-10.1 [facility] Comment on above: Performed By: #### P [id number] #### [facility] [address] [place] [address] Dr. Valeria Farris Chloride [Moles/Vol] 103 mmol/L Normal 98-107 [facility] Comment on above: Performed By: #### P ROT24U #### [facility] [address] [address] [address] Valeria Farris CO2 [Moles/Vol] 25.8 mmol/L Normal 21.0-32.0 [facility] Comment on above: Performed By: #### P ROT24U #### [facility] [address] [address] [address] Valeria Farris Creatinine [Mass/Vol] 0.35 mg/dL Critically low 0.55-1.02 [facility] Comment on above: Performed By: #### P ROT24U #### [facility] [address] [address] [address] Valeria Farris EGFR-AF BURKINAN >60 Normal >=60 [facility] Comment on above: Performed By: #### P ROT24U #### [facility] [address] [address] [address] Valeria Farris EGFR-NON AF BURKINAN >60 Normal >=60 [facility] Comment on above: Performed By: #### P ROT24U #### [facility] [address] [address] [address] Valeria Farris Globulin (S) [Mass/Vol] 4.2 g/dL Normal [facility] Comment on above: Performed By: #### P ROT24U #### [facility] [address] [address] [address] Valeria Farris Glucose [Mass/Vol] 80 mg/dL Normal 74-106 [facility] Comment on above: Performed By: #### P ROT24U #### [facility] [address] [address] [address] Valeria Farris Potassium [Moles/Vol] 3.9 mmol/L Normal 3.5-5.1 [facility] Comment on above: Performed By: #### P ROT24U #### [facility] [address] [address] [address] Valeria Farris Protein [Mass/Vol] 6.8 g/dL Normal 6.4-8.2 [facility] Comment on above: Performed By: #### P ROT24U #### [facility] [address] [place] [address] Dr. Valeria Farris Sodium [Moles/Vol] 138 mmol/L Normal 136-145 [facility] Comment on above: Performed By: #### P ROT24U #### [facility] [address] [place] [address] Dr. Valeria Farris Urea nitrogen [Mass/Vol] 10.0 mg/dL Normal 7.0-18.0 [facility] Comment on above: Performed By: #### P ROT24U #### [facility] [address] [place] [address] Dr. Valeria Farris Urea nitrogen/Creatinine [Mass ratio] 28.6 mg/mg Normal [facility] Comment on above: Performed By: #### P ROT24U #### [facility] [address] [place] [address] Dr. Valeria Farris PTTon 06-17-2022 aPTT Coag (Bld) [Time] 26.4 s Normal 22.3-36.2 [facility] Comment on above: Performed By: #### P REGQNT #### [facility] [address] [place] [address] Dr. Valeria Farris UA (CLEAN/CATCH) MICA PARTS SPRAYER/MICRO I F IND.on 06-17-2022 Bilirubin Ql (U) Negative Normal NEGATIVE [facility] Comment on above: Performed By: #### P REGQNT #### [facility] [address] [place] [address] Dr. Valeria Farris Clarity (U) CLEAR Normal CLEAR [facility] Comment on above: Performed By: #### P REGQNT #### [facility] [address] [place] [address] Dr. Valeria Farris Color (U) LT. YELLOW Normal YELLOW [facility] Comment on above: Performed By: #### P REGQNT #### [facility] [address] [place] [address] Dr. Valeria Farris Glucose Ql (U) Negative Normal NEGATIVE [facility] Comment on above: Performed By: #### P REGQNT #### [facility] [address] [address] [address] Valeria Farris Hemoglobin Ql (U) Negative Normal NEGATIVE [facility] Comment on above: Performed By: #### P REGQNT #### [facility] [address] [address] [address] Valeria Farris Ketones Ql (U) Negative Normal NEGATIVE [facility] Comment on above: Performed By: #### P REGQNT #### [facility] [address] [address] [address] Valeria Farris LEUKOCYTES Negative Normal NEGATIVE [facility] Comment on above: Performed By: #### P REGQNT #### [facility] [address] [place] [address] Dr. Valeria Farris Nitrite Ql (U) Negative Normal NEGATIVE [facility] Comment on above: Performed By: #### P REGQNT #### [facility] [address] [place] [address] Dr. Valeria Farris pH (U) 6.5 [pH] Normal 5-9 [facility] Comment on above: Performed By: #### P REGQNT #### [facility] [address] [place] [address] Dr. Valeria Farris SPEC GRAVITY 1.010 Normal 1.005-<=1.02 5 [facility] Comment on above: Performed By: #### P REGQNT #### [facility] [address] [place] [address] Dr. Valeria Farris UA PROTEIN Negative Normal NEGATIVE/ TRACE [facility] Comment on above: Performed By: #### P REGQNT #### [facility] [address] [place] [address] Dr. Valeria Farris UR MICRO IND NOT INDICATED Normal [facility] Comment on above: Performed By: #### P REGQNT #### [facility] [address] [place] [address] Dr. Valeria Farris Urobilinogen Qn (U) 0.2 {Manolo'U}/dL Normal 0.2 - 1. 0 [facility] Comment on above: Performed By: #### P REGQNT #### [facility] [address] [place] [address] Dr. Valeria Farris URIC ACID SERUMon 06-17-2022 Urate [Mass/Vol] 3.3 mg/dL Normal 2.6-6.0 [facility] Comment on above: Performed By: #### P [id number] #### [facility] [address] [place] [address] Dr. Valeria Farris PAP ACOG PANEL 2: 30 to 65on 05-29-2022 . . Normal [facility] Comment on above: Result Comment: Perf ormed at: WB Performed By: #### [id number] #### [facility] [address] [place] [address] Dr. Valeria Farris Age Gdln ACOG Testing 30-65 Normal [facility] Comment on above: Performed By: #### 4 [id number] #### [facility] [address] [place] [address] Dr. Valeria Farris DIAGNOSIS: Comment Normal [facility] Comment on above: Result Comment: NEGA TIVE FOR INTRAEPITHELIAL LESION OR MALIGNANCY. Performed at: WB Performed By: #### [id number] #### [facility] [address] [place] [address] Dr. Valeria Farris HPV Aptima Negative Normal Negative [facility] Comment on above: Result Comment: This nucleic acid amplification test detects fourteen high-risk HPV types (16,18,31,33,35,39,45,51,52,56,58,59,66,68) without differentiation. Performed at: =G Performed By: #### 4 [id number] #### [facility] [address] [place] [address] Dr. Valeria Farris HPV Genotype Reflex Comment Normal [facility] Comment on above: Result Comment: Crit eria not met, HPV Genotype not performed. Performed at: WB Performed By: #### [id number] #### [facility] [address] [place] [address] Dr. Valeria Farris Methodology: Comment Normal [facility] Comment on above: Result Comment: This liquid based ThinPrep(R) pap test was screened with the use of an image guided system. Performed at: WB Performed By: #### [id number] #### [facility] [address] [place] [address] Dr. Valeria Farris Note: Comment Normal [facility] Comment on above: Result Comment: The Pap smear is a screening test designed to aid in the detection of premalignant and malignant conditions of the uterine cervix. It is not a diagnostic procedure and should not be used as the sole means of detecting cervical cancer. Both false-positive and false-negative reports do occur. . Performed at: WB Performed By: #### [id number] #### [facility] [address] [place] [address] Dr. Valeria Farris Performed by: Comment Normal [facility] Comment on above: Result Comment: Jaye Simmons, Director Dental Services (ASCP) Performed at: WB Performed By: #### 4 [id number] #### [facility] [address] [place] [address] Dr. Valeria Farris Specimen adequacy: Comment Normal [facility] Comment on above: Result Comment: Sati sfactory for evaluation. Performed at: WB Performed By: #### 4 [id number] #### [facility] [address] [place] [address] Dr. Valeria Farris POINT OF CARE GLUCOSEon 0 Glucose [Mass/Vol] 122 mg/dL Critically high 74-106 [facility] Comment on above: Performed By: #### U ACSIND, UMICRO #### [facility] [address] [place] [address] Dr. Valeria Farris UA (CLEAN/CATCH) MICA PARTS SPRAYER/MICRO I F IND.on 05-29-2022 Bilirubin Ql (U) Negative Normal NEGATIVE [facility] Comment on above: Performed By: #### U ACSIND, UMICRO #### [facility] [address] [place] [address] Dr. Valeria Farris Clarity (U) CLEAR Normal CLEAR [facility] Comment on above: Performed By: #### U ACSIND, UMICRO #### [facility] [address] [address] [address] Valeria Farris Color (U) LT. YELLOW Normal YELLOW [facility] Comment on above: Performed By: #### U ACSIND, UMICRO #### [facility] [address] [address] [address] Valeria Farris Glucose Ql (U) Negative Normal NEGATIVE [facility] Comment on above: Performed By: #### U ACSIND, UMICRO #### [facility] [address] [address] [address] Valeria Farris Hemoglobin Ql (U) TRACE-INTACT Abnormal NEGATIVE [facility] Comment on above: Performed By: #### U ACSIND, UMICRO #### [facility] [address] [place] [address] Dr. Valeria Farris Ketones Ql (U) Negative Normal NEGATIVE [facility] Comment on above: Performed By: #### U ACSTRUPTI, UMICRO #### [facility] [address] [place] [address] Dr. Valeria Farris LEUKOCYTES Negative Normal NEGATIVE [facility] Comment on above: Performed By: #### U ACSTRUPTI, UMICRO #### [facility] [address] [place] [address] Dr. Valeria Farris Nitrite Ql (U) Negative Normal NEGATIVE [facility] Comment on above: Performed By: #### U ACSTRUPTI, UMICRO #### [facility] [address] [place] [address] Dr. Valeria Farris pH (U) 5.5 [pH] Normal 5-9 [facility] Comment on above: Performed By: #### U ACSTRUPTI, UMICRO #### [facility] [address] [place] [address] Dr. Valeria Farris SPEC GRAVITY 1.010 Normal 1.005-<=1.02 5 [facility] Comment on above: Performed By: #### U ACSIND, UMICRO #### [facility] [address] [place] [address] Dr. Valeria Farris UA PROTEIN Negative Normal NEGATIVE/ TRACE [facility] Comment on above: Performed By: #### U ACSTRUPTI, UMICRO #### [facility] [address] [place] [address] Dr. Valeria Farris UR MICRO IND INDICATED Normal [facility] Comment on above: Performed By: #### U ACSTRUPTI, UMICRO #### [facility] [address] [place] [address] Dr. Valeria Farris Urobilinogen Qn (U) 0.2 {Manolo'U}/dL Normal 0.2 - 1. 0 [facility] Comment on above: Performed By: #### U ACSTRUPTI, UMICRO #### [facility] [address] [place] [address] Dr. Valeria Farris URINE MICROSCOPIC ONLYon BACTERIA NONE SEEN Normal NONE SEEN [facility] Comment on above: Performed By: #### U ACSTRUPTI, UMICRO #### [facility] [address] [place] [address] Dr. Valeria Farris Bacteria identified Cx Nom (U) NOT INDICATED Normal [facility] Comment on above: Performed By: #### U ACSTRUPTI, UMICRO #### [facility] [address] [place] [address] Dr. Valeria Farris CAST NONE SEEN Normal NONE SEEN [facility] Comment on above: Performed By: #### U ACSTRUPTI, UMICRO #### [facility] [address] [place] [address] Dr. Valeria Farris Crystals LM Nom (Urine sed) NONE SEEN Normal NONE SEEN [facility] Comment on above: Performed By: #### U ACSIND, UMICRO #### [facility] [address] [place] [address] Dr. Valeria Farris Epithelial cells LM Ql (Urine sed) FEW Abnormal NONE SEEN /RARE [facility] Comment on above: Performed By: #### U ACSIND, UMICRO #### [facility] [address] [place] [address] Dr. Valeria Farris MUCOUS NONE SEEN Normal NONE SEEN [facility] Comment on above: Performed By: #### U ACSTRUPTI, ICRO #### [facility] [address] [place] [address] Dr. Valeria Farris RBC 0-2 Normal 0-2 [facility] Comment on above: Performed By: #### U ACSTRUPTI, ICRO #### [facility] [address] [place] [address] Dr. Valeria Farris WBC NONE SEEN Normal NONE SEEN [facility] Comment on above: Performed By: #### [facility]I, [facility] #### [facility] [address] [place] [address] Dr. Valeria Farris CHLAMYDIA/GONOCOCCUS SARANYA ( AB/URINE/PAPon 05-26-2022 Chlamydia trachomatis, SARANYA Negative Normal Negative [facility] Comment on above: Performed By: #### [id number] #### [facility] [address] [place] [address] Dr. Valeria Farris Neisseria gonorrhoeae, SARANYA Negative Normal Negative [facility] Comment on above: Performed By: #### 4 [id number] #### [facility] [address] [place] [address] Dr. Valeria Farris AMYLASEon 05-25-2022 Amylase [Catalytic activity/Vol] 30 U/L Normal 25-115 [facility] Comment on above: Performed By: #### P [id number] #### [facility] [address] [place] [address] Dr. Valeria Farris CARDIAC VERNON 3-6on 3 CK [Catalytic activity/Vol] 119 U/L Normal 26-192 [facility] Comment on above: Performed By: #### P ROT24U #### [facility] [address] [place] [address] Dr. Valeria Farris CK.MB [Mass/Vol] ng/mL Normal <=3.[address] [facility] Comment on above: Performed By: #### P ROT24U #### [facility] [address] [place] [address] Dr. Valeria Farris HSTROP <4.0 Normal 4.0-51.3 [facility] Comment on above: Result Comment: CUT- OFF POINTS HAVE BEEN ESTABLISHED BASED ON THE FOURTH UNIVERSAL DEFINITIONS OF MYOCARDIAL INFARCTION. THE UPPER REFERENCE LIMIT (URL) OF TROPONIN, DEFINED THE 99TH PERCENTILE OF cTnI DISTRIBUTION IN A REFERENCE POPULATION, HAS BEEN CONFIRMED THE DECISION THRESHOLD FOR MS DIAGNOSIS. Performed By: #### P [id number] #### [facility] [address] [place] [address] Dr. Valeria Farris CARDIAC VERNON ADMITon 023 CK [Catalytic activity/Vol] 121 U/L Normal 26-192 [facility] Comment on above: Performed By: #### P [id number] #### [facility] [address] [place] [address] Dr. Valeria Farris CK.MB [Mass/Vol] 0.51 ng/mL Normal <=3.[address] [facility] Comment on above: Performed By: #### P ROT24U #### [facility] [address] [place] [address] Dr. Valeria Farris HSTROP 4.1 pg/mL Normal 4.0-51.3 [facility] Comment on above: Result Comment: CUT- OFF POINTS HAVE BEEN ESTABLISHED BASED ON THE FOURTH UNIVERSAL DEFINITIONS OF MYOCARDIAL INFARCTION. THE UPPER REFERENCE LIMIT (URL) OF TROPONIN, DEFINED THE 99TH PERCENTILE OF cTnI DISTRIBUTION IN A REFERENCE POPULATION, HAS BEEN CONFIRMED THE DECISION THRESHOLD FOR MS DIAGNOSIS. Performed By: #### P ROT24U #### [facility] [address] [place] [address] Dr. Valeira Farris MINI 19 ng/mL Normal 9-82 [facility] Comment on above: Performed By: #### P [id number] #### [facility] [address] [place] [address] Dr. Valeria Farris CBC AUTO DIFFon 05-25-2022 BASO # 0.0 103/ul Normal 0.0-0.1 [facility] Comment on above: Performed By: #### 4 [id number] #### [facility] [address] [place] [address] Dr. Valeria Farris Basophils/100 WBC (Bld) 0.2 % Normal 0.2-2.0 [facility] Comment on above: Performed By: #### 4 [id number] #### [facility] [address] [place] [address] Dr. Valeria Farris EO # 0.1 103/ul Normal 0.0-0.7 [facility] Comment on above: Performed By: #### 4 [id number] #### [facility] [address] [place] [address] Dr. Valeria Farris Eosinophils/100 WBC (Bld) 0.8 % Critically low 0.9-7.0 [facility] Comment on above: Performed By: #### 4 [id number] #### [facility] [address] [place] [address] Dr. Valeria Farris Erythrocyte distribution width (RBC) [Ratio] 13.5 % Normal 11.0-15.0 [facility] Comment on above: Performed By: #### 4 [id number] #### [facility] [address] [place] [address] Dr. Valeria Farris Hematocrit (Bld) [Volume fraction] 30.4 % Critically low 36.0-48.0 [facility] Comment on above: Performed By: #### 4 [id number] #### [facility] [address] [place] [address] Dr. Valeria Farris Hemoglobin (Bld) [Mass/Vol] 9.8 g/dL Critically low 12.0-16.0 [facility] Comment on above: Performed By: #### 4 [id number] #### [facility] [address] [place] [address] Dr. Valeria Farris IG # 0.21 10e3/ul Critically high 0.00-0.03 [facility] Comment on above: Performed By: #### 4 [id number] #### [facility] [address] [place] [address] Dr. Valeria Farris IG % 1.6 % Critically high 0.0-0.5 [facility] Comment on above: Performed By: #### 4 [id number] #### [facility] [address] [place] [address] Dr. Valeria Farris LYMPH # 2.8 103/ul Normal 1.2-3.8 [facility] Comment on above: Performed By: #### 4 [id number] #### [facility] [address] [place] [address] Dr. Valeria Farris Lymphocytes/100 WBC (Bld) 21.3 % Normal 20.5-60.0 [facility] Comment on above: Performed By: #### 4 [id number] #### [facility] [address] [place] [address] Dr. Valeria Farris MANUAL DIFF REQ NO Normal [facility] Comment on above: Performed By: #### 4 [id number] #### [facility] [address] [place] [address] Dr. Valeria Farris MCH (RBC) [Entitic mass] 28.2 pg Normal 26.7-34.0 [facility] Comment on above: Performed By: #### 4 [id number] #### [facility] [address] [place] [address] Dr. Valeria Farris MCHC (RBC) [Mass/Vol] 32.2 g/dL Normal 29.9-35.2 [facility] Comment on above: Performed By: #### 4 [id number] #### [facility] [address] [place] [address] Dr. Valeria Farris MCV (RBC) [Entitic vol] 87.6 fL Normal 81.0-99.0 [facility] Comment on above: Performed By: #### 4 [id number] #### [facility] [address] [place] [address] Dr. Valeria Farris MONO # 0.9 103/ul Critically high 0.3-0.8 [facility] Comment on above: Performed By: #### 4 [id number] #### [facility] [address] [place] [address] Dr. Valeria Farris Monocytes/100 WBC (Bld) 6.8 % Normal 1.7-12.0 [facility] Comment on above: Performed By: #### [id number] #### [facility] [address] [place] [address] Dr. Valeria Farris NEUT # 9.0 103/ul Critically high 1.4-6.5 [facility] Comment on above: Performed By: #### 4 [id number] #### [facility] [address] [place] [address] Dr. Valeria Farris Neutrophils/100 WBC (Bld) 69.3 % Normal 43.0-75.0 [facility] Comment on above: Performed By: #### [id number] #### [facility] [address] [place] [address] Dr. Valeria Farris Platelet mean volume (Bld) [Entitic vol] 10.5 fL Normal 9.5-13.5 [facility] Comment on above: Performed By: #### [id number] #### [facility] [address] [place] [address] Dr. Valeria Farris PLT 187 103/ul Normal 150-450 [facility] Comment on above: Performed By: #### [id number] #### [facility] [address] [place] [address] Dr. Valeria Farris RBC 3.47 106/ul Critically low 4.20-5.40 [facility] Comment on above: Performed By: #### [id number] #### [facility] [address] [place] [address] Dr. Valeria Farris WBC 13.0 103/ul Critically high 4.0-11.0 [facility] Comment on above: Performed By: #### [id number] #### [facility] [address] [place] [address] Dr. Valeria Farris CTA CHEST WO W [...] by: Daryl LOPEZ Date: 2022-05-25 01:55 Normal [facility] CULTURE URINEon 05-25-2022 CULTURE URINE Culture Observations : HEAVY GROWTH OF MIXED GENITAL RIO. NO POTENTIAL PATHOGENS SEEN. Normal [facility] Comment on above: Performed By: #### [id number] #### [facility] [address] [place] [address] Dr. Valeria Farris LIPASEon 05-25-2022 Lipase [Catalytic activity/Vol] 54.0 U/L Critically low 73.0-393.0 [facility] Comment on above: Performed By: #### P [id number] #### [facility] [address] [place] [address] Dr. Valeria Farris PROF 14(COMP METB)on 023 Albumin [Mass/Vol] 2.5 g/dL Critically low 3.4-5.0 [facility] Comment on above: Performed By: #### P [id number] #### [facility] [address] [place] [address] Dr. Valeria Farris Albumin/Globulin [Mass ratio] 0.6 {ratio} Normal [facility] Comment on above: Performed By: #### P [id number] #### [facility] [address] [place] [address] Dr. Valeria Farris ALP [Catalytic activity/Vol] 97 U/L Normal 46-116 [facility] Comment on above: Performed By: #### P [id number] #### [facility] [address] [address] [address] Valeria Farris ALT [Catalytic activity/Vol] 25 U/L Normal 14-59 [facility] Comment on above: Performed By: #### P ROT24U #### [facility] [address] [address] [address] Valeria Farris Anion gap [Moles/Vol] 14.2 mmol/L Normal [facility] Comment on above: Performed By: #### P [id number] #### [facility] [address] [address] [address] Valeria Farris AST [Catalytic activity/Vol] 12 U/L Critically low 15-37 [facility] Comment on above: Performed By: #### P ROT24U #### [facility] [address] [address] [address] Valeria Farris Bilirubin [Mass/Vol] 0.2 mg/dL Normal 0.2-1.0 [facility] Comment on above: Performed By: #### P ROT24U #### [facility] [address] [address] [address] Valeria Farris Calcium [Mass/Vol] 8.5 mg/dL Normal 8.5-10.1 [facility] Comment on above: Performed By: #### P ROT24U #### [facility] [address] [address] [address] Valeria Farris Chloride [Moles/Vol] 103 mmol/L Normal 98-107 [facility] Comment on above: Performed By: #### P ROT24U #### [facility] [address] [address] [address] Valeria Farris CO2 [Moles/Vol] 23.0 mmol/L Normal 21.0-32.0 [facility] Comment on above: Performed By: #### P ROT24U #### [facility] [address] [address] [address] Valeria Farris Creatinine [Mass/Vol] 0.39 mg/dL Critically low 0.55-1.02 [facility] Comment on above: Performed By: #### P ROT24U #### [facility] [address] [address] [address] Valeria Farris EGFR-AF BURKINAN >60 Normal >=60 [facility] Comment on above: Performed By: #### P ROT24U #### [facility] [address] [address] [address] Valeria Farris EGFR-NON AF BURKINAN >60 Normal >=60 [facility] Comment on above: Performed By: #### P ROT24U #### [facility] [address] [address] [address] Valeria Farris Globulin (S) [Mass/Vol] 4.0 g/dL Normal [facility] Comment on above: Performed By: #### P ROT24U #### [facility] [address] [address] [address] Valeria Farris Glucose [Mass/Vol] 113 mg/dL Critically high 74-106 [facility] Comment on above: Performed By: #### P ROT24U #### [facility] [address] [address] [address] Valeria Farris Potassium [Moles/Vol] 3.2 mmol/L Critically low 3.5-5.1 [facility] Comment on above: Performed By: #### P ROT24U #### [facility] [address] [address] [address] Valeria Farris Protein [Mass/Vol] 6.5 g/dL Normal 6.4-8.2 [facility] Comment on above: Performed By: #### P ROT24U #### [facility] [address] [address] [address] Valeria Farris Sodium [Moles/Vol] 137 mmol/L Normal 136-145 [facility] Comment on above: Performed By: #### P ROT24U #### [facility] [address] [address] [address] Valeria Farris Urea nitrogen [Mass/Vol] 8.0 mg/dL Normal 7.0-18.0 [facility] Comment on above: Performed By: #### P ROT24U #### [facility] [address] [place] [address] Dr. Valeria Farris Urea nitrogen/Creatinine [Mass ratio] 20.5 mg/mg Normal [facility] Comment on above: Performed By: #### P ROT24U #### [facility] [address] [place] [address] Dr. Valeria Farris UA (CLEAN/CATCH) MICA PARTS SPRAYER/MICRO I F IND.on 05-25-2022 Bilirubin Ql (U) Negative Normal NEGATIVE [facility] Comment on above: Performed By: #### G LU1HR #### [facility] [address] [place] [address] Dr. Valeria Farris Clarity (U) CLEAR Normal CLEAR [facility] Comment on above: Performed By: #### G LU1HR #### [facility] [address] [place] [address] Dr. Valeria Farris Color (U) YELLOW Normal YELLOW [facility] Comment on above: Performed By: #### G LU1HR #### [facility] [address] [place] [address] Dr. Valeria Farris Glucose Ql (U) Negative Normal NEGATIVE [facility] Comment on above: Performed By: #### G LU1HR #### [facility] [address] [place] [address] Dr. Valeria Farris Hemoglobin Ql (U) TRACE-INTACT Abnormal NEGATIVE [facility] Comment on above: Performed By: #### G LU1HR #### [facility] [address] [place] [address] Dr. Valeria Farris Ketones Ql (U) TRACE Abnormal NEGATIVE [facility] Comment on above: Performed By: #### G LU1HR #### [facility] [address] [place] [address] Dr. Valeria Farris LEUKOCYTES Negative Normal NEGATIVE [facility] Comment on above: Performed By: #### G LU1HR #### [facility] [address] [place] [address] Dr. Valeria Farris Nitrite Ql (U) Negative Normal NEGATIVE [facility] Comment on above: Performed By: #### G LU1HR #### [facility] [address] [place] [address] Dr. Valeria Farris pH (U) 6.0 [pH] Normal 5-9 [facility] Comment on above: Performed By: #### G LU1HR #### [facility] [address] [place] [address] Dr. Valeria Farris SPEC GRAVITY >=1.030 Abnormal 1.005-<=1.02 5 [facility] Comment on above: Performed By: #### G LU1HR #### [facility] [address] [place] [address] Dr. Valeria Farris UA PROTEIN Negative Normal NEGATIVE/ TRACE [facility] Comment on above: Performed By: #### G LU1HR #### [facility] [address] [place] [address] Dr. Valeria Farris UR MICRO IND INDICATED Normal [facility] Comment on above: Performed By: #### G LU1HR #### [facility] [address] [place] [address] Dr. Valeria Farris Urobilinogen Qn (U) 0.2 {Manolo'U}/dL Normal 0.2 - 1. 0 [facility] Comment on above: Performed By: #### G LU1HR #### [facility] [address] [place] [address] Dr. Valeria Farris URINE MICROSCOPIC ONLYon BACTERIA SMALL Abnormal NONE SEEN [facility] Comment on above: Performed By: #### G LU1HR #### [facility] [address] [place] [address] Dr. Valeria Farris Bacteria identified Cx Nom (U) INDICATED Normal [facility] Comment on above: Performed By: #### G LU1HR #### [facility] [address] [place] [address] Dr. Valeria Farris CA OX CRYSTALS FEW Normal [facility] Comment on above: Performed By: #### G LU1HR #### [facility] [address] [place] [address] Dr. Valeria Farris CAST NONE SEEN Normal NONE SEEN [facility] Comment on above: Performed By: #### G LU1HR #### [facility] [address] [place] [address] Dr. Valeria Farris Crystals LM Nom (Urine sed) SEEN Abnormal NONE SEEN [facility] Comment on above: Performed By: #### G LU1HR #### [facility] [address] [place] [address] Dr. Valeria Farris Epithelial cells LM Ql (Urine sed) MANY Abnormal NONE SEEN /RARE [facility] Comment on above: Performed By: #### G LU1HR #### [facility] [address] [place] [address] Dr. Valeria Farris MUCOUS TRACE Abnormal NONE SEEN [facility] Comment on above: Performed By: #### G LU1HR #### [facility] [address] [place] [address] Dr. Valeria Farris RBC 2-5 Abnormal 0-2 [facility] Comment on above: Performed By: #### G LU1HR #### [facility] [address] [place] [address] Dr. Valeria Farris WBC NONE SEEN Normal NONE SEEN [facility] Comment on above: Performed By: #### G LU1HR #### [facility] [address] [place] [address] Dr. Valeria Farris VAGINITIS/VAGINOSIS DNA PROB Sam 05-25-2022 Litzy species Negative Normal Negative [facility] Comment on above: Performed By: #### P REGQNT #### [facility] [address] [place] [address] Dr. Valeria Farris Gardnerella vaginalis Positive Abnormal Negative [facility] Comment on above: Performed By: #### P REGQNT #### [facility] [address] [place] [address] Dr. Valeria Farris Trichomonas vaginalis Negative Normal Negative [facility] Comment on above: Performed By: #### P REGQNT #### [facility] [address] [place] [address] Dr. Valeria Farris UA (CLEAN/CATCH) MICA PARTS SPRAYER/MICRO I F IND.on 05-04-2022 Bilirubin Ql (U) Negative Normal NEGATIVE [facility] Comment on above: Performed By: #### P REGQNT #### [facility] [address] [place] [address] Dr. Valeria Farris Clarity (U) CLEAR Normal CLEAR [facility] Comment on above: Performed By: #### P REGQNT #### [facility] [address] [address] [address] Valeria Farris Color (U) LT. YELLOW Normal YELLOW [facility] Comment on above: Performed By: #### P REGQNT #### [facility] [address] [place] [address] Dr. Valeria Farris Glucose Ql (U) Negative Normal NEGATIVE [facility] Comment on above: Performed By: #### P REGQNT #### [facility] [address] [place] [address] Dr. Valeria Farris Hemoglobin Ql (U) SMALL Abnormal NEGATIVE [facility] Comment on above: Performed By: #### P REGQNT #### [facility] [address] [place] [address] Dr. Valeria Farris Ketones Ql (U) TRACE Abnormal NEGATIVE [facility] Comment on above: Performed By: #### P REGQNT #### [facility] [address] [place] [address] Dr. Valeria Farris LEUKOCYTES Negative Normal NEGATIVE [facility] Comment on above: Performed By: #### P REGQNT #### [facility] [address] [place] [address] Dr. Valeria Farris Nitrite Ql (U) Negative Normal NEGATIVE [facility] Comment on above: Performed By: #### P REGQNT #### [facility] [address] [place] [address] Dr. Valeria Farris pH (U) 6.5 [pH] Normal 5-9 [facility] Comment on above: Performed By: #### P REGQNT #### [facility] [address] [place] [address] Dr. Valeria Farris SPEC GRAVITY 1.025 Normal 1.005-<=1.02 5 [facility] Comment on above: Performed By: #### P REGQNT #### [facility] [address] [place] [address] Dr. Valeria Farris UA PROTEIN Negative Normal NEGATIVE/ TRACE [facility] Comment on above: Performed By: #### P REGQNT #### [facility] [address] [place] [address] Dr. Valeria Farris UR MICRO IND INDICATED Normal [facility] Comment on above: Performed By: #### P REGQNT #### [facility] [address] [place] [address] Dr. Valeria Farris Urobilinogen Qn (U) 0.2 {Manolo'U}/dL Normal 0.2 - 1. 0 [facility] Comment on above: Performed By: #### P REGQNT #### [facility] [address] [place] [address] Dr. Valeria Farris URINE MICROSCOPIC ONLYon BACTERIA NONE SEEN Normal NONE SEEN [facility] Comment on above: Performed By: #### U ACSIND, UMICRO #### [facility] [address] [place] [address] Dr. Valeria Farris Bacteria identified Cx Nom (U) NOT INDICATED Normal [facility] Comment on above: Performed By: #### U ACSIND, UMICRO #### [facility] [address] [place] [address] Dr. Valeria Farris CAST NONE SEEN Normal NONE SEEN [facility] Comment on above: Performed By: #### U ACSIND, UMICRO #### [facility] [address] [place] [address] Dr. Valeria Farris Crystals LM Nom (Urine sed) NONE SEEN Normal NONE SEEN [facility] Comment on above: Performed By: #### U ACSIND, UMICRO #### [facility] [address] [place] [address] Dr. Valeria Farris Epithelial cells LM Ql (Urine sed) FEW Abnormal NONE SEEN /RARE [facility] Comment on above: Performed By: #### U ACSTRUPTI UMICRO #### [facility] [address] [place] [address] Dr. Valeria Farris MUCOUS TRACE Abnormal NONE SEEN [facility] Comment on above: Performed By: #### U ACSTRUPTI UMICRO #### [facility] [address] [place] [address] Dr. Valeria Farris RBC 0-2 Normal 0-2 [facility] Comment on above: Performed By: #### U ACSTRUPTI ICRO #### [facility] [address] [place] [address] Dr. Valeria Farris WBC NONE SEEN Normal NONE SEEN [facility] Comment on above: Performed By: #### [facility] #### [facility] [address] [place] [address] Dr. Valeria Farris AMYLASEon 04-12-2022 Amylase [Catalytic activity/Vol] 31 U/L Normal 25-115 [facility] Comment on above: Performed By: #### G LU1HR #### [facility] [address] [place] [address] Dr. Valeria Farris BUNon 04-12-2022 Urea nitrogen [Mass/Vol] 7.0 mg/dL Normal 7.0-18.0 [facility] Comment on above: Performed By: #### G LU1HR #### [facility] [address] [place] [address] Dr. Valeria Farris CBC AUTO DIFFon 04-12-2022 BASO # 0.0 103/ul Normal 0.0-0.1 [facility] Comment on above: Performed By: #### P REGQNT #### [facility] [address] [place] [address] Dr. Valeria Farris Basophils/100 WBC (Bld) 0.3 % Normal 0.2-2.0 [facility] Comment on above: Performed By: #### P REGQNT #### [facility] [address] [place] [address] Dr. Valeria Farris EO # 0.3 103/ul Normal 0.0-0.7 [facility] Comment on above: Performed By: #### P REGQNT #### [facility] [address] [address] [address] Valeria Farris Eosinophils/100 WBC (Bld) 2.3 % Normal 0.9-7.0 [facility] Comment on above: Performed By: #### P REGQNT #### [facility] [address] [place] [address] Dr. Valeria Farris Erythrocyte distribution width (RBC) [Ratio] 12.8 % Normal 11.0-15.0 [facility] Comment on above: Performed By: #### P REGQNT #### [facility] [address] [place] [address] Dr. Valeria Farris Hematocrit (Bld) [Volume fraction] 34.9 % Critically low 36.0-48.0 [facility] Comment on above: Performed By: #### P REGQNT #### [facility] [address] [place] [address] Dr. Valeria Farris Hemoglobin (Bld) [Mass/Vol] 11.8 g/dL Critically low 12.0-16.0 [facility] Comment on above: Performed By: #### P REGQNT #### [facility] [address] [place] [address] Dr. Valeria Farris IG # 0.08 10e3/ul Critically high 0.00-0.03 [facility] Comment on above: Performed By: #### P REGQNT #### [facility] [address] [place] [address] Dr. Valeria Farris IG % 0.7 % Critically high 0.0-0.5 [facility] Comment on above: Performed By: #### P REGQNT #### [facility] [address] [place] [address] Dr. Valeria Farris LYMPH # 2.6 103/ul Normal 1.2-3.8 [facility] Comment on above: Performed By: #### P REGQNT #### [facility] [address] [place] [address] Dr. Valeria Farris Lymphocytes/100 WBC (Bld) 22.4 % Normal 20.5-60.0 [facility] Comment on above: Performed By: #### P REGQNT #### [facility] [address] [place] [address] Dr. Valeria Farris MANUAL DIFF REQ NO Normal [facility] Comment on above: Performed By: #### P REGQNT #### [facility] [address] [place] [address] Dr. Valeria Farris MCH (RBC) [Entitic mass] 28.5 pg Normal 26.7-34.0 [facility] Comment on above: Performed By: #### P REGQNT #### [facility] [address] [place] [address] Dr. Valeria Farris MCHC (RBC) [Mass/Vol] 33.8 g/dL Normal 29.9-35.2 [facility] Comment on above: Performed By: #### P REGQNT #### [facility] [address] [place] [address] Dr. Valeria Farris MCV (RBC) [Entitic vol] 84.3 fL Normal 81.0-99.0 [facility] Comment on above: Performed By: #### P REGQNT #### [facility] [address] [place] [address] Dr. Valeria Farris MONO # 0.8 103/ul Normal 0.3-0.8 [facility] Comment on above: Performed By: #### P REGQNT #### [facility] [address] [place] [address] Dr. Valeria Farris Monocytes/100 WBC (Bld) 6.8 % Normal 1.7-12.0 [facility] Comment on above: Performed By: #### P REGQNT #### [facility] [address] [place] [address] Dr. Valeria Farris NEUT # 7.8 103/ul Critically high 1.4-6.5 [facility] Comment on above: Performed By: #### P REGQNT #### [facility] [address] [place] [address] Dr. Valeria Farris Neutrophils/100 WBC (Bld) 67.5 % Normal 43.0-75.0 [facility] Comment on above: Performed By: #### P REGQNT #### [facility] [address] [place] [address] Dr. Valeria Farris Platelet mean volume (Bld) [Entitic vol] 10.3 fL Normal 9.5-13.5 [facility] Comment on above: Performed By: #### P REGQNT #### [facility] [address] [place] [address] Dr. Valeria Farris PLT 195 103/ul Normal 150-450 [facility] Comment on above: Performed By: #### P REGQNT #### [facility] [address] [place] [address] Dr. Valeria Farris RBC 4.14 106/ul Critically low 4.20-5.40 [facility] Comment on above: Performed By: #### P REGQNT #### [facility] [address] [place] [address] Dr. Valeria Farris WBC 11.5 103/ul Critically high 4.0-11.[address] [facility] Comment on above: Performed By: #### P REGQNT #### [facility] [address] [place] [address] Dr. Valeria Farris CREATININEon 04-12-2022 Creatinine [Mass/Vol] 0.44 mg/dL Critically low 0.55-1.02 [facility] Comment on above: Performed By: #### G LU1HR #### [facility] [address] [place] [address] Dr. Valeria Farris EGFR-AF BURKINAN >60 Normal >=[address] [facility] Comment on above: Performed By: #### G LU1HR #### [facility] [address] [place] [address] Dr. Valeria Farris EGFR-NON AF BURKINAN >60 Normal >=60 [facility] Comment on above: Performed By: #### G LU1HR #### [facility] [address] [place] [address] Dr. Valeria Farris LIPASEon 04-12-2022 Lipase [Catalytic activity/Vol] 62.0 U/L Critically low 73.0-393.0 [facility] Comment on above: Performed By: #### G LU1HR #### [facility] [address] [place] [address] Dr. Valeria Farris LIVER PROFILEon 04-12-2022 Albumin [Mass/Vol] 2.9 g/dL Critically low 3.4-5.0 [facility] Comment on above: Performed By: #### G LU1HR #### [facility] [address] [place] [address] Dr. Valeria Farris Albumin/Globulin [Mass ratio] 0.7 {ratio} Normal [facility] Comment on above: Performed By: #### G LU1HR #### [facility] [address] [place] [address] Dr. Valeria Farris ALP [Catalytic activity/Vol] 86 U/L Normal 46-116 [facility] Comment on above: Performed By: #### G LU1HR #### [facility] [address] [place] [address] Dr. Valeria Farris ALT [Catalytic activity/Vol] 14 U/L Normal 14-59 [facility] Comment on above: Performed By: #### G LU1HR #### [facility] [address] [place] [address] Dr. Valeria Farris AST [Catalytic activity/Vol] 12 U/L Critically low 15-37 [facility] Comment on above: Performed By: #### G LU1HR #### [facility] [address] [place] [address] Dr. Valeria Farris BILI, CONJUGATED 0.1 mg/dL Normal 0.0-0.2 [facility] Comment on above: Performed By: #### G LU1HR #### [facility] [address] [place] [address] Dr. Valeria Farris Bilirubin [Mass/Vol] 0.2 mg/dL Normal 0.2-1.0 [facility] Comment on above: Performed By: #### G LU1HR #### [facility] [address] [address] [address] Valeria Farris Globulin (S) [Mass/Vol] 4.2 g/dL Normal [facility] Comment on above: Performed By: #### G LU1HR #### [facility] [address] [address] [address] Valeria Farris Protein [Mass/Vol] 7.1 g/dL Normal 6.4-8.2 [facility] Comment on above: Performed By: #### G LU1HR #### [facility] [address] [place] [address] Dr. Valeria Farris PROF 14(COMP METB)on 022 Anion gap [Moles/Vol] 13.1 mmol/L Normal [facility] Comment on above: Performed By: #### G LU1HR #### [facility] [address] [place] [address] Dr. Valeria Farris Calcium [Mass/Vol] 8.7 mg/dL Normal 8.5-10.1 [facility] Comment on above: Performed By: #### G LU1HR #### [facility] [address] [address] [address] Valeria Farris Chloride [Moles/Vol] 100 mmol/L Normal 98-107 [facility] Comment on above: Performed By: #### G LU1HR #### [facility] [address] [place] [address] Dr. Valeria Farris CO2 [Moles/Vol] 25.4 mmol/L Normal 21.0-32.0 [facility] Comment on above: Performed By: #### G LU1HR #### [facility] [address] [place] [address] Dr. Valeria Farris Glucose [Mass/Vol] 87 mg/dL Normal 74-106 [facility] Comment on above: Performed By: #### G LU1HR #### [facility] [address] [address] [address] Valeria Farris Potassium [Moles/Vol] 3.5 mmol/L Normal 3.5-5.1 [facility] Comment on above: Performed By: #### G LU1HR #### [facility] [address] [address] [address] Valeria Farris Sodium [Moles/Vol] 135 mmol/L Critically low 136-145 Th e [facility] Comment on above: Performed By: #### G LU1HR #### [facility] [address] [address] [address] Valeria Farris Urea nitrogen/Creatinine [Mass ratio] 15.9 mg/mg Normal [facility] Comment on above: Performed By: #### G LU1HR #### [facility] [address] [address] [address] Valeria Farris US PREG CERVICAL LENGTHon [...] GERARD GONZALEZ Date: 2022-04-12 16:39 Normal [facility] UA (CLEAN/CATCH) MICA PARTS SPRAYER/MICRO I F IND.on 04-11-2022 Bilirubin Ql (U) Negative Normal NEGATIVE The [facility] Comment on above: Performed By: #### U ZAID LANDEROSICRO #### [facility] [address] [address] [address] Valeria Farris Clarity (U) CLEAR Normal CLEAR [facility] Comment on above: Performed By: #### U LETI UMICRO #### [facility] [address] [address] [address] Valeria Farris Color (U) LT. YELLOW Normal YELLOW [facility] Comment on above: Performed By: #### U ACSTRUPTI UMICRO #### [facility] [address] [address] [address] Valeria Farris Glucose Ql (U) Negative Normal NEGATIVE [facility] Comment on above: Performed By: #### U ACSIND, UMICRO #### [facility] [address] [address] [address] Valeria Farris Hemoglobin Ql (U) TRACE-INTACT Abnormal NEGATIVE [facility] [place] Comment on above: Performed By: #### U ACSIND, UMICRO #### [facility] [address] [address] [address] Valeria Farris Ketones Ql (U) Negative Normal NEGATIVE [facility] Comment on above: Performed By: #### U ACSIND, UMICRO #### [facility] [address] [address] [address] Valeria Farris LEUKOCYTES Negative Normal NEGATIVE [facility] Comment on above: Performed By: #### U ACSIND, UMICRO #### [facility] [address] [place] [address] Dr. Valeria Farris Nitrite Ql (U) Negative Normal NEGATIVE [facility] Comment on above: Performed By: #### U ACSIND, UMICRO #### [facility] [address] [address] [address] Valeria Farris pH (U) 6.5 [pH] Normal 5-9 [facility] Comment on above: Performed By: #### U ACSIND, UMICRO #### [facility] [address] [place] [address] Dr. Valeria Farris SPEC GRAVITY 1.010 Normal 1.005-<=1.02 5 [facility] Comment on above: Performed By: #### U ACSIND, UMICRO #### [facility] [address] [address] [address] Valeria Farris UA PROTEIN Negative Normal NEGATIVE/ TRACE The [facility] Comment on above: Performed By: #### U ACSIND, UMICRO #### [facility] [address] [address] [address] Valeria Farris UR MICRO IND INDICATED Normal [facility] Comment on above: Performed By: #### U ACSIND, UMICRO #### [facility] [address] [address] [address] Valeria Farris Urobilinogen Qn (U) 0.2 {Manolo'U}/dL Normal 0.2 - 1. 0 [facility] Comment on above: Performed By: #### U ACSTRUPTI, UMICRO #### [facility] [address] [address] [address] Valeria Farris URINE MICROSCOPIC ONLYon BACTERIA NONE SEEN Normal NONE SEEN The [facility] Comment on above: Performed By: #### U ACSTRUPTI, UMICRO #### [facility] [address] [address] [address] Valeria Farris Bacteria identified Cx Nom (U) NOT INDICATED Normal [facility] Comment on above: Performed By: #### U ACSTRUPTI, UMICRO #### [facility] [address] [place] [address] Dr. Valeria Farris CAST NONE SEEN Normal NONE SEEN The [facility] Comment on above: Performed By: #### U ACSTRUPTI, UMICRO #### [facility] [address] [place] [address] Dr. Valeria Farris Crystals LM Nom (Urine sed) NONE SEEN Normal NONE SEEN The [facility] Comment on above: Performed By: #### U ACSTRUPTI, ICRO #### [facility] [address] [place] [address] Dr. Valeria Farris Epithelial cells LM Ql (Urine sed) FEW Abnormal NONE SEEN /RARE [facility] Comment on above: Performed By: #### U ACSTRUPTI, UMICRO #### [facility] [address] [place] [address] Dr. Valeria Farris MUCOUS NONE SEEN Normal NONE SEEN The [facility] Comment on above: Performed By: #### U ACSTRUPTI UMICRO #### [facility] [address] [place] [address] Dr. Valeria Farris RBC 0-2 Normal 0-2 [facility] Comment on above: Performed By: #### U ACSTRUPTI, UMICRO #### [facility] [address] [place] [address] Dr. Valeria Farris WBC 0-2 Abnormal NONE SEEN The [facility] Comment on above: Performed By: #### U ACSIND, ZAIDICRO #### [facility] [address] [place] [address] Dr. Valeria Farris US PREG ANATOMY SINGLEon [...] ALINE GALICIA Date: 2022-03-28 10:57 Normal [facility] XR SHOULDER RT 2V or >on XR SHOULDER RT 2V or > EXAM: XR SHOULDER RT 2V or > INDICATION: Pain. COMPARISON: None. TECHNIQUE: Right shoulder, 3 views. FINDINGS: No acute fracture or dislocation. Intact glenohumeral and acromioclavicular joints. Unremarkable soft tissues. IMPRESSION: Normal right shoulder. Electronically authenticated by: GILDARDO TAYLOR Date: 2022-03-19 08:36 Normal [facility] AFP TETRA PROFILE (MATERNAL) on 03-08-2022 AFP MoM 0.60 Normal [facility] Comment on above: Performed By: #### U ACSTRUPTI UMICRO #### [facility] [address] [address] [address] Valeria Farris AFP Value 15.2 ng/mL Normal [facility] Comment on above: Performed By: #### U ACSTRUPTI, UMICRO #### [facility] [address] [address] [address] Valeria Farris Comment Comment Normal [facility] Comment on above: Result Comment: Nicolás Ramirez, Ph.D., [facility] Director . References: Available Upon Request. . Multiples Of Median Cutoffs Abbreviation Definitions For AFP Elevations IDD- Insulin Dep Diabetes Rodriguez 2.5 Black 2.8 OSBR- Open Spina Bifida IDD 2.0 Twins 4.5 Risk DSR Cutoff 1:270 DSR- Down Syndrome Risk T18 Cutoff 1:100 T18- Trisomy 18 . For further inquiries contact [facility] at [phone]. . This test was developed and its performance characteristics determined by [employer]. It has not been cleared or approved by the Food and Drug Administration. Performed By: #### U LETI UMICRO #### [facility] [address] [address] [address] Valeria Farris CHACE MoM 0.90 Normal [facility] Comment on above: Performed By: #### U ACSTRUPTI UMICRO #### [facility] [address] [place], [place] [address] Dr. Valeria Farris CHACE Value 95.93 pg/mL Normal [facility] Comment on above: Performed By: #### U ACSTRUPTI UMICRO #### [facility] [address] [place], [place] [address] Dr. Valeria Farris DSR (By Age) 1 IN 656 Normal The [facility] Comment on above: Performed By: #### U ACSTRUPTI UMICRO #### [facility] [address] [address] [address] Valeria Farris DSR (Second Trimester) 1 [place] 5782 Normal [facility] Comment on above: Performed By: #### U ACSTRUPTI, UMICRO #### [facility] [address] [address] [address] Valeria Farris Gest. Age on Collection Date 16.7 WEEKS Normal [facility] Comment on above: Performed By: #### U ACSTRUPTI, UMICRO #### [facility] [address] [address] [address] Valeria Farris Gestat. Age Based On SUNSHINE [facility] Comment on above: Result Comment: 07/23 Performed By: #### U ACSTRUPTI UMICRO #### [facility] [address] [place] [address] Dr. Valeria Farris hCG MoM 0.61 Normal [facility] Comment on above: Performed By: #### U LETI, UMICRO #### [facility] [address] [address] [place] [address] m[IU]/mL [facility] Comment on above: Performed By: #### U LETI UMICRO #### [facility] [address] [place] [address] Dr. Valeria Farris Insulin Dep Diabetes No Normal [facility] Comment on above: Performed By: #### U LETI UMICRO #### [facility] [address] [place] [address] Dr. Valeria Farris Interpretation Comment Normal [facility] Comment on above: Result [...] identifies 60% of Trisomy 18 pregnancies. The [employer] recommends amniocentesis be offered to women age 35 and older. Recalculations are not recommended when gestational dating by LMP and ultrasound are within 10 days. Performed By: #### U ACSTRUPTI, UMICRO #### [facility] [address] [address] [address] Valeria Farris [age] Normal [facility] [place] Comment on above: Performed By: #### U ACSIND, UMICRO #### [facility] [address] [address] [address] Valeria Farris Multiple Gestation No Normal [facility] Comment on above: Performed By: #### U ACSTRUPTI, UMICRO #### [facility] [address] [place] [address] Dr. Valeria Farris [place] [address] Normal [facility] Comment on above: Performed By: #### U ACSTRUPTI, UMICRO #### [facility] [address] [address] [address] Valeria Farris PDF . [facility] Comment on above: Performed By: #### U ACSTRUPTI UMICRO #### [facility] [address] [address] [address] Valeria Farris Race [facility] Comment on above: Performed By: #### U ACSTRUPTI, UMICRO #### [facility] [address] [address] [address] Valeria Farris Results Report [facility] Comment on above: Performed By: #### U ACSTRUPTI, UMICRO #### [facility] [address] [address] [address] Valeria Farris T18 (By Age) 1:2556 Normal [facility] Comment on above: Performed By: #### U ACSTRUPTI, UMICRO #### [facility] [address] [address] [address] Valeria Farris T18 Risk Not increased Normal [facility] Comment on above: Performed By: #### U ACSTRUPTI, UMICRO #### [facility] [address] [address] [address] Valeria Farris Test Results: Negative Normal [facility] Comment on above: Performed By: #### U ACSTRUPTI UMICRO #### [facility] [address] [address] [address] Valeria Farris uE3 MoM 0.75 Normal [facility] Comment on above: Performed By: #### U ACSTRUPTI UMICRO #### [facility] [address] [address] [address] Valeria Farris uE3 Value 0.71 ng/mL Normal [facility] Comment on above: Performed By: #### U ACSZAID LYLESICRO #### [facility] [address] [address] [address] Valeria Farris GLUCOSE - 1HRon 03-03-2022 Glucose [Mass/Vol] 214 mg/dL Critically high 74-106 [facility] Comment on above: Performed By: #### G LU1HR #### [facility] [address] [place] [address] Dr. Valeria Farris HEPATITIS C VIRUS AB W/ REFL EX QUANTon 01-11-2022 HCV AB <0.1 Normal 0.0-0.9 [facility] Comment on above: Performed By: #### P REGQNT #### [facility] [address] [place] [address] Dr. Valeria Farris Interpretation: Comment Normal The [facility] Comment on above: Result Comment: Nega tive Not infected with HCV, unless recent infection is suspected or other evidence exists to indicate HCV infection. Performed By: #### P REGQNT #### [facility] [address] [address] [address] Valeria Farris HEP B SURFACE ANTIGEN SCREEN on 01-10-2022 HBsAg Screen Negative Normal Negative [facility] Comment on above: Performed By: #### P REGQNT #### [facility] [address] [place] [address] Dr. Valeria Farris HIV 1 AND 2 WITH REFLEXon HIV Screen 4th Generation wRfx Non-Reactive Normal Non Reactive [facility] Comment on above: Result Comment: HIV Negative HIV-1/HIV-2 antibodies and HIV-1 p24 antigen were NOT detected. There is no laboratory evidence of HIV infection. Performed By: #### H IV12 #### [facility] [address] [place] [address] Dr. Valeria Farris RPR QUANTon 01-10-2022 Rapid Plasma Reagin, Quant Non-Reactive Normal NonRea<1:1 [facility] Comment on above: Result Comment: Plea se Note: This test does not meet current guidelines for screening and diagnosis of syphilis. This test is intended for following treatment response in patients being treated for syphilis infection. To screen for syphilis infection, a reflex cascade that includes both RPR and a treponema-specific assay should be utilized, such as Treponema pallidum (Syphilis) Screening [place] (438599) or Rapid Plasma Reagin (RPR) Test With Reflex to Quantitative RPR and Confirmatory Treponema pallidum Antibodies (305566). Performed By: #### R PRQ #### [facility] [address] [place] [address] Dr. Valeria Farris RUBELLA AB IGGon 01-10-2022 Rubella Antibodies, IgG 1.83 index Normal Immune >0.99 [facility] Comment on above: Result Comment: Non- immune <0.90 Equivocal 0.90 - 0.99 Immune >0.99 Performed By: #### U ACSIND, UMICRO #### [facility] [address] [place] [address] Dr. Valeria Farris CBC AUTO DIFFon 01-09-2022 BASO # 0.0 103/ul Normal 0.0-0.1 [facility] Comment on above: Performed By: #### 4 [id number] #### [facility] [address] [place] [address] Dr. Valeria Farris Basophils/100 WBC (Bld) 0.4 % Normal 0.2-2.0 [facility] Comment on above: Performed By: #### 4 [id number] #### [facility] [address] [place] [address] Dr. Valeria Farris EO # 0.3 103/ul Normal 0.0-0.7 [facility] Comment on above: Performed By: #### 4 [id number] #### [facility] [address] [place] [address] Dr. Valeria Farris Eosinophils/100 WBC (Bld) 3.5 % Normal 0.9-7.0 [facility] Comment on above: Performed By: #### 4 [id number] #### [facility] [address] [place] [address] Dr. Valeria Farris Erythrocyte distribution width (RBC) [Ratio] 13.6 % Normal 11.0-15.0 [facility] Comment on above: Performed By: #### 4 [id number] #### [facility] [address] [place] [address] Dr. Valeria Farris Hematocrit (Bld) [Volume fraction] 38.9 % Normal 36.0-48.0 [facility] Comment on above: Performed By: #### 4 [id number] #### [facility] [address] [place] [address] Dr. Valeria Farris Hemoglobin (Bld) [Mass/Vol] 12.9 g/dL Normal 12.0-16.0 [facility] Comment on above: Performed By: #### 4 [id number] #### [facility] [address] [place] [address] Dr. Valeria Farris IG # 0.04 10e3/ul Critically high 0.00-0.03 [facility] Comment on above: Performed By: #### 4 [id number] #### [facility] [address] [place] [address] Dr. Valeria Farris IG % 0.4 % Normal 0.0-0.5 [facility] Comment on above: Performed By: #### 4 [id number] #### [facility] [address] [place] [address] Dr. Valeria Farris LYMPH # 2.1 103/ul Normal 1.2-3.8 [facility] Comment on above: Performed By: #### 4 [id number] #### [facility] [address] [place] [address] Dr. Vaelria Farris Lymphocytes/100 WBC (Bld) 21.5 % Normal 20.5-60.0 [facility] Comment on above: Performed By: #### 4 [id number] #### [facility] [address] [place] [address] Dr. Valeria Farris MANUAL DIFF REQ NO Normal [facility] Comment on above: Performed By: #### 4 [id number] #### [facility] [address] [place] [address] Dr. Valeria Farris MCH (RBC) [Entitic mass] 27.9 pg Normal 26.7-34.0 [facility] Comment on above: Performed By: #### 4 [id number] #### [facility] [address] [place] [address] Dr. Valeria Farris MCHC (RBC) [Mass/Vol] 33.2 g/dL Normal 29.9-35.2 [facility] Comment on above: Performed By: #### 4 [id number] #### [facility] [address] [place] [address] Dr. Valeria Farris MCV (RBC) [Entitic vol] 84.0 fL Normal 81.0-99.0 [facility] Comment on above: Performed By: #### 4 [id number] #### [facility] [address] [place] [address] Dr. Valeira Farris MONO # 0.6 103/ul Normal 0.3-0.8 [facility] Comment on above: Performed By: #### 4 [id number] #### [facility] [address] [place] [address] Dr. Valeria Farris Monocytes/100 WBC (Bld) 5.6 % Normal 1.7-12.0 [facility] Comment on above: Performed By: #### 4 [id number] #### [facility] [address] [place] [address] Dr. Valeria Farris NEUT # 6.7 103/ul Critically high 1.4-6.5 [facility] Comment on above: Performed By: #### 4 [id number] #### [facility] [address] [place] [address] Dr. Valeria Farris Neutrophils/100 WBC (Bld) 68.6 % Normal 43.0-75.0 [facility] Comment on above: Performed By: #### 4 [id number] #### [facility] [address] [address] [address] Valeria aFrris Platelet mean volume (Bld) [Entitic vol] 9.9 fL Normal 9.5-13.5 [facility] Comment on above: Performed By: #### 4 [id number] #### [facility] [address] [address] [address] Valeria Farris PLT 244 103/ul Normal 150-450 [facility] Comment on above: Performed By: #### 4 [id number] #### [facility] [address] [address] [address] Valeria Farris RBC 4.63 106/ul Normal 4.20-5.40 [facility] Comment on above: Performed By: #### 4 [id number] #### [facility] [address] [place] [address] Dr. Valeria Farris WBC 9.7 103/ul Normal 4.0-11.0 [facility] Comment on above: Performed By: #### 4 [id number] #### [facility] [address] [address] [address] Valeria Farris CULTURE URINEon 01-09-2022 CULTURE URINE Culture Observations : MODERATE GROWTH OF MIXED GENITAL RIO. NO POTENTIAL PATHOGENS SEEN. Normal [facility] Comment on above: Performed By: #### U RCX #### [facility] [address] [place] [address] Dr. Valeria Farris GLYCOHEMOGLOBIN A1Con 2021 ADA RECOMMENDATION SEE BELOW Normal [facility] Comment on above: Result Comment: ADA RECOMMENDED LIMIT 4.0 - 6.0 ADA THERAPEUTIC TARGET < 7.0 ACTION SUGGESTED > 7.0 Performed By: #### P REGQNT #### [facility] [address] [place] [address] Dr. Valeria Farris Glucose [Mass/Vol] 111 mg/dL Normal The [facility] Comment on above: Performed By: #### P REGQNT #### [facility] [address] [address] [address] Valeria Farris HbA1c (Bld) [Mass fraction] 5.5 % Normal 4.5-6.2 [facility] Comment on above: Performed By: #### P REGQNT #### [facility] [address] [address] [address] Valeria Farris LETHA BOX TEST PT SEND OUTo n 01-09-2022 SENT TO REF LAB 01/09/2022 Normal [facility] Comment on above: Performed By: #### N BOX #### [facility] [address] [address] [address] Valeria Farris TYPE AND SCREENon 01-09-2022 TYPE AND SCREEN Negative Normal [facility] Comment on above: Performed By: #### [id number] #### [facility] [address] [address] [address] Valeria Farris US PREG TVon 12-30-2021 [...] GERARD GONZALEZ Date: 2021-12-30 17:14 Normal [facility] US PREG TVon 12-15-2021 US PREG [...] GERARD GONZALEZ Date: 2021-12-14 22:02 Normal [facility] HCG-BETA SUBUNIT QUANTon hCG,Beta Subunit,Qnt,Serum 571 mIU/mL Normal [facility] Comment on above: Result Comment: Fema le (Non-) 0 - 5 (Postmenopausal) 0 - 8 . Female () Weeks of Gestation 3 - 4 10 - 750 5 217 - 7138 6 158 - 51566 7 3697 -543855 8 43622 -437183 9 33170 -774410 10 60084 -909490 12 15850 -031623 14 44082 - 70995 15 72186 - 43273 16 9040 - 87885 17 8175 - 64599 18 8099 - 76602 Jamel ECLIA methodology Performed By: #### P REGQNT #### [facility] [address] [place] [address] Dr. Valeria Farris HCG-BETA SUBUNIT QUANTon hCG,Beta Subunit,Qnt,Serum 65 mIU/mL Normal [facility] Comment on above: Result Comment: Fema le (Non-) 0 - 5 (Postmenopausal) 0 - 8 . Female () Weeks of Gestation 3 - 4 10 - 750 5 217 - 7138 6 158 - 86316 7 3697 -667622 8 87544 -080468 9 450828 -820410 10 66319 -461749 12 14189 -496107 14 30064 - 43990 15 73899 - 89233 16 9040 - 16885 17 8175 - 08661 18 8099 - 41510 Jamel ECLIA methodology Performed By: #### U ACSINDALEXRO #### [facility] [address] [place] [address] Dr. Valeria Farris HCG-BETA SUBUNIT QUANTon 08- 09-2022 hCG,Beta Subunit,Qnt,Serum 18 mIU/mL Normal [facility] Comment on above: Result Comment: Fema le (Non-) 0 - 5 (Postmenopausal) 0 - 8 . Female () Weeks of Gestation 3 6 - 71 4 10 - 750 5 204 - 2300 6 634 - 03742 7 1669 -801677 8 96529 -164298 9 37623 -394612 10 12372 -542112 12 96884 -927957 14 79676 - 96850 15 83387 - 10337 16 2718 - 69466 17 3732 - 89320 18 3268 - 01927 Cogo ECLIA methodology Performed By: #### G LU1HR #### [facility] [address] [place] [address] Dr. Valeria Farris PREG QUANT HCGon 10-05-2021 HCG QUANT <1 Normal [facility] Comment on above: Performed By: #### P REGQNT #### [facility] [address] [place] [address] Dr. Valeria Farris HCG RANGE SEE BELOW Normal [facility] Comment on above: Result Comment: 5-50 0-1 WEEK 40-300 1-2 WEEKS 100-1,000 2-3 WEEKS 500-6,000 3-4 WEEKS 5,000-200,000 1-2 MONTHS 10,000-100,000 2-3 MONTHS 3,000-50,000 2ND TRIMESTER 1,000-50,000 3RD TRIMESTER Performed By: #### P REGQNT #### [facility] [address] [place] [address] Dr. Valeria Farris FREE T4on 09-12-2021 Free T4 [Mass/Vol] 0.88 ng/dL Normal 0.76-1.46 [facility] Comment on above: Performed By: #### P REGQNT #### [facility] [address] [place] [address] Dr. Valeria Farris TSHon 09-12-2021 TSH 1.564 uIU/mL Normal 0.358-3.740 [facility] Comment on above: Performed By: #### [id number] #### [facility] [address] [place] [address] Dr. Valeria Farris TSH RANGE SEE BELOW Normal [facility] Comment on above: Result Comment: <0.3 4 UIU/ml HYPERTHYROID 0.34-5.60 UIU/ml EUTHYROID >5.60 UIU/ml HYPOTHYROID Performed By: #### [id number] #### [facility] [address] [address] [address] Valeria aFrris US VENOUS DOPPLER L Nohelia US VENOUS [...] GERARD GONZALEZ Date: 2021-09-12 14:31 Normal [facility] Coding Summaryon 10-16-2020 Coding Summary HTMLBase 64 HwulrugkFUj3eWz+PGhlYWQ+ QY7CDEVmX30kvBVqhX4WV2yA IE1QDHOAJYBFWX8RHB9ldJO0 VIkzP3AoviZb SsmrsBLqBJ84QOf9RSV8rJae ONcbdX5etBHhI9a8PzXwOS49 eG57NUvhQEHtHaD7UpKcltxn bWFy Y3okHvEyzBAtTjg+PHRhYmxl IHdpZHRoPScxMDAlJyBzdHls CD8hTh3sPWCyWIVerQamlEXa OiBj k6mjPHEwNSxqDM8ouFxlS4Ym uLZ7GIXrs4b8Jm11zAV+PHRk EMC4oGpmTEzil317ApCbx5nn IDM3 wYLePIgzNPQ5L57xs0S6MYCc BAWgOAW4nBI8vY6wvPnsoout N4KcmQJvAcZ9IOT2bJLanP9t bGln pfovmI3qIwj+X89SXW2ZZQCN HO3XVfs7F9LtBzvqnUB+PC90 GGXrZI54gXWzePOtg6sljRv2 JzEw SDJqGNG3uKywUZzge1MqPOSv W16llVGbe7K3HGHnrKxkuIPx GcSuoOB2oJ4yWAsfhygek8qe dzsn Gxzhe7vxcv96nU97R62bTFys OXXlXXL7ZOMlIKOuiUpwaf5b oO3oSz4+RHlht1ljl8zbkCm4 IjIw KXAvdqKadMsaXXI1e9NdHf95 B7RpoCsvz2SjBhz6zn31aVGx z3E0lDC6JKfwBLLzhV1iYLfj ZnQ6 GJAhSdEucX37zLJaJIetZa0v cMpblNrtIL7iFFNqkcjoGXLr tE9kMMAnsMCujBggTL1cSRBm bjtm c093OzCjELA7XTBoeHLcY6Er bL1tZcGcTPBqHFKxT4SsuJPp BDdbJ513ZWyzBaT1OQJiocYb Y2Fs BDPyhKsxSwR8a2D4Ib8Rw9Jq hpleMWM5UBarSVX0JrF4KiXl UvP7T7YkIzu1UMEsqNfkWI4n J3Bh RLVxtbjdzpautEX3WRSjICIv zL46zDMyBVnxCh1da8P2n193 UODeORMtnV16Im4qvNkgWGAl dCBU kJ8edgmmq3gyapmiHuTkGYCt LTr8ZNx6QVJjmFnzYxXiLVV3 JiP5HJC9kZLxoB2rlPjrjork dG9w Oyc+Y78giV0iEVD8PQD1qwfb JPEmidRcGJ94NY19U6TdJaor dGFibGU+QIOpiqVboRqpNG8k YmFj n3xff8VjQQzgH9ZfPEGvYKus Uxw4NAYkOOT9fHQ4xK1cZEKc VGekv6Q2dUG9K9KvkhVfjx2d b2xs USCcKOqvR36hoKOve3Z8KDFv zKI6CTWyoRfbZmKviR07Eyq+ TBQkmIqyi8KvZhnmz2ptq4bm dGg9 OnTuKOZeczCrpTehYTU7u7Gn Jk42Q86iPIdqNLHmJIByJOPg ZNEkdRhgek9grT0lXx8+PGNv bCB3 fJZ0tY0nGTRpVeZ4OEjuL523 PlIvqMTyWrrxe0kjw3kuyGb9 InOjUBZtktVakYbkEUV2x4Jf Lz48 B19lJMogXEGuFSHlTXCwIPEw wUupga7zmE0rAd9+FU5kq2em mo36yV66bKG+FVYzMCD0zRfr PSdw TQUghH7pRFhkFxB2IKCjOwZn nU75pPPtHJywZr3unBaxxZfg GF7oMTWdsvwih364CfWdr9yh IDEw cYEhEZuuBSW8K68jw5N7QSSu DJRmXXD8lUJ5zE9esEyopven bGVmdDsgdmVydGljYWwtYWxp Z246 IHRvcDsnPlBhdGllbnQgTmFt VKs5L3DqIvg6YMEaoVugRJ7b eHBsRXfdYr3oyLtpiLoaYY8d NTBp bryxq649XsEab0cvUMYhsSKw WOosOYE1W58vs8P9AQCtCAYb SYM5dHP8cT6fmQufayciaKOb dDsg evPyeElsHPnqQBdmE719LITv eNtdSyJhizMnPPLqrVI2MB45 SE58qXMdn7Q1fDN7V1RgABVn bmct cakvrLO5FEQkVASelQ93Um4q xTvxIc9eCKSgMDG3NMVdjLGx A2WrlL5zAhIfDBIiOGDdG1Yp eHQt VVxcF039SQjaBfZ4LHGhlhBl L6JqECCrxNxxKpS4n2R0Ll8W J4Q0OM51IM17uIKta9C4nHN1 J3Bh QMYxrsghrphscPR7ZLNtOTQy yE28Wc9iuGvsCd2kJHOaHNS3 BAIorNNyP0MyjJ2wSaNyUCRp MDAw M5RgnWCmBYhkI084IRwgWpS7 NGEtiqQvV4GwFQHjoNysSwB1 u7A1Tz3DVIz4IG81ZD81cFFy c3R5 oJO7R3CnYKXglrfozvseeUZ8 PCTmXYSkzH92Ln8fvXbbBj8u KOCsJOH0NQHueOLkA6XzwO8w OiAj BKXsWWHbJ0UvxVWcBEjeU607 OYljQaB3ZHPlsiGrJ0JkDNQr yXzfJeJ9v4M1Gj6ZLCWiKQ15 IFR5 hJW3KE62HM80I5CoKfwgaGPa bGU+PHRhYmxlIHdpZHRoPScx LHZpVbOnsPiqHY5rWk8vXQDd LWNv ePpjbSQmQdDib7jyRAIdFUqq HU6taJqcK9IjaYE5EDOub6u6 Ty35D72aV9OwfKC+PGNvbCB3 aWR0 aS1gAjPoPpH4TEzsN629YaPx nIMeFpmss6uqp7sxpMf6AxY3 DRSuxaCjtOdvMQC8c8FaMv26 Y29s IHdpZHRoPSIxNSUiIHZhbGln rt3lzX8rZv4+OPDhwXJ6hGU1 eY9tArRdGrW1HDufO006ZkOp cCIv Kqesn5ubo8mejIc4QuBwPWDd quWjlQnlXQQ3s7ZgIh55S3Gh eTpnr5ZlBwr3mn67uOBqr7I6 bGU9 I0YeIADscfhigZQyjNplDK7x IGQxmdrcBIUavE4uBRFyT5h2 CrSeLqK4OHitN7ZlpxE2GZOl cHQg GXatKWL8B80gd8A5VNAqIQEu JMV4lXJ3kX5biEqmemqmyKQa wOppamSphOfrOGfxDGqlM816 IHRv uEfsEPRuiK8jSRBtvDIwqMki EG2oJTTmimnrBgQXYpOXDuQJ LCBNRUdBTiBNQVJJRTwvdGQ+ PHRk ZYW3dQmlMCbcGWEoyA1sUUIu W2q4PjUfVvI0NPdpM3PxPTPs yfcaAp61yU3gYfPiXsX8KZhc O2Zv zpQ2VHOioWIgVLxvKES4K11r s8W9HNViCDTcYQE8rGQ9aO6f bGlnbjogbGVmdDsgdmVydGlj YWwt FOnlR995KCNnfLjwYrXbQlY8 GdC9LEU0F4FuMqn8WPYhvQst TO3ffNFaBQivHr0hkGczwRgr MC4w HVBlioigISJhmZ3fFJBwjDEu gYhrWW5yTHVmmwiht214ZfJd ZDJ0BOKtuRHoX1HsrB9bIjAc MDAw WQZdV6QfyYOqFEawU290RPko WpO9AOWodrPgY8HdLCHecPza XlL6v7D5El5uGWHWANMsfdut dGQ+ WQUcYQP6gMfgGHfiBBAzrK7e UTUxU1s1YtWdCnH1TFbaM1Mu KIIcehvvTw21vP7oIhPcJhS4 MGlu Z0CpizE7CFQqwEViLIsfRQQ2 V81wk0E8CEWpCIUzICO6mZE1 dV3gwAkairvodGKmwMkaucBl dGlj VRhsKErxS806OSNbuEghQjVL TUFMRTwvdGQ+JVRbDOK0uPau RJpcXLEvpU9kFPMyM4k1DpYn LjA1 SJqqB4RuNIJomolsUo47cJ8n RdQaFnG4DJyuN6HiinM5DFDx eFPfLYurCGU0B92at6L8QNZb MDAw GZR1mRC2uI1qiOdoxuwluRJj tPpzccBlfVffEPvsZCayU214 UKAsvHunUm6SSX53OK25P2Zu Pjwv dGFibGU+PHRhYmxlIHdpZHRo BWtpMPOlKeMzqJocJW5sUf9y UKQxTIAgoZmteQVaRzIgq9oo YXBz BHrrMS3frWobP1JmeAI5ZULe p0t9Ie43F86cX4QtkAZ+PGNv xYE2fKE7mG5tGkHbTlH5BXma Z249 MiHubTKwNbpvi4toj9gkxLp1 NyIsUTStcjInvLjiEPP2b0Io Bb68E20zBDoaDAMhDXJlXLCi IHZh wQkhhw3uqA9iTp6+PGNvbCB3 lNS1lT5aEuGiWrZ0AWraL227 VhKuhOJnKyxlI56fY4WssKJ+ PHRy Key4BKQgeYwqUT1lbWZtUJxk Qq0cDDX8GcLuKjKhKDxtK4Hb IERkkepwnyffyYU5WYWzVUWh aW47 Kg4tyNkxCx8bLOAqDGN7UEVb lGQcH6PiaS8uSbWlWVQbDSQf W7ZzyTUrHRjpR749MHwmAlK4 IHZl foIpC8PnHYTxoUbcLgP0q3U4 Am9NtMlscWWiEV5sShLxTHs8 O0UrZjs1YZQzxTpuWY2ybJTx ZGlu Sn3txTvjyQqaUT4aJKXuszjh o045VrAnm1evKKAdjDPaEJwo JSS0E28tm4G0QXPkSVTnKBP4 dGV4 kW5nuCebneyvmCWpgRsbzkVu yBspDGgxGCjvH929WVCcnTqp KeZOJso5X3YeRox7YVQobXuc ZT0n nONcEGhjVa4caCpcnHmpUF9a ONVksnbzu844WoGei8loLMRh dNEsZOhsXDJ9G88iz1X7MRZy MDAw GMS2uKI6zX8itKmeojxdvQXm zVpcxuMpyWmyDKohMPmzA073 CZPffTpwMp7OUur5N7JlDpn3 ZCBz lLhuDC1ltZEkUYuoSg2kcXzq sBzyXC2tGTRzpqqbz285XjFv p6rkMUXcxFVeJThgVUH9F30e b3I6 ORWfABUgNUZ2mJS4uD7xzSji bjogbGVmdDsgdmVydGljYWwt AJdaA509EMChuBuwSzMyvBOx Ojwv dGQ+WD07hd39M0TzAotyXet4 WRChKEY2dJH8mQ0qANUiLGmm r0C4pIJ2B0DaveIrqk3jy1xz YXBz ZTo (more content not included)... [facility] Coding Summary HTMLBase 64 HonayaajIBv3hJx+PGhlYWQ+ RR2SSBVkS81szFJssO8MB9rB VQ8ZSWRZQHYFVC5BHV7wvLD2 SIflN2BprmNv PqjdtELhAR44HBv6UDG5rPxc QBjjsG2tjFAgV3i9NoGgEO22 iY90NUlpFGLxJiW6KvUxcvuu bWFy T0ghVvLvwJQiLlc+PHRhYmxl IHdpZHRoPScxMDAlJyBzdHls BY0uXz3oCCVlOSKmqYojbNNu OiBj b8kmUMSbEZfnIL6onSgxU5Xu iYN1EZBsc9a8Uv37iSI+PHRk AZF7lWiuMBfwk172PyNil7rf IDM3 xABvPIphJRY9K38vi8A3ERLq GIChBIC0xMA3xP3wxEnljbdo A9KnjQIdWnI0PHO0bXTfkM0u bGln woxcqB8sPom+V20UJF6PHCMR MM9NFjd8J4AkFupllUM+PC90 GZPtGL88mULreJDsl7yeaHs3 JzEw SZBhDXF5gHdoSXswn9FeOLZb M11umKLpp3K1OFPlnKrhlLTj LjGjqFQ9eD6zROwbvcdcm8qb dzsn Innxa4cpap69mR13B09mNDot RSKeIYL2HSFvUBRffUqszd1p rB7iHg4+NLkhe8ogq7ahvFe6 IjIw CVFyuzEmrZklVUP5b8SqKi69 C0DisZozf7XqIxj2vp64fGSn s4I8qHO4ALmsRQRuwZ0iHHer ZnQ6 HMQgDlWgxJ26eLYwJXceCv7r aCeloSddWN9pTHFiosjkPZRk pB7vNGEobOTmbVzeGR0aVEXr bjtm w688BpJkHAK3QSMmsZBqH3Vo qL4aCoPcWOLrLJHsT0ZxuARh AFbbN370HGqnFaL8XFFikbXf Y2Fs BMKehZakRzO3e4V0Xr1Qn1Gz eolgYAV5CAgpQTK0CqG0XtEh IzB7H1JvJzf2GGBefThuJR0u J3Bh QDNevylvykfbvQE7VAVzTNIb zQ01wTKdGKynPz3oz4A7i073 XDTqGCDrtZ98Mx8pvSroYEBs dCBU eK5nkgtrw8gwroesQdGqHSKn YCf5PRm7ONWuoBaoShUqXPW5 HiE0FFU6nYUpmW9smUcjsovp dG9w Oyc+U58fxF3fMEQ5UZZ9xuqa OIBrhhMuKW49CX71D1OwVdcj dGFibGU+GZMwryHhpIzqDQ5z YmFj y6cyg8CgXOorM5RuSHDpWEbn Mrj3WGHkOSF7pZD4uK0gWOBk DWqxp3Y5qBY3Z4DftsSjak6t b2xs JWRlWTnyO52rfNBeg6T8WDNr dFA5BVYygLwvDfTsbT41Ruh+ EFDpaNupz2BsOuyij3orr4wt dGg9 MhMyEKWiitSoyFenVPD8c2Sz Xi57J48aEAlcDXBtPUFfGMIe SQIzsEzacq6onP2rIq5+PGNv bCB3 dOK2uC8eFJWsBbU1ZSobL100 BhNqaDQaNlngd4vtc8yrjWj4 IuFbBLKpkeFlnHvaLTS3o3Av Lz48 D65gSNsaQFUuOPImWLLtVCYx gPsuvq4nuC5rDa0+YG2uo2cn vk23fP62iJX+PDTeHIJ1hUje PSdw UQGbpQ5uZLfyPjF4EQEfJpUd uJ28wIAnTHphSy1lvQqxeHqz ZG6nNLTojluft569QzTse5vf IDEw wKKxGBcjCLU5A71cx9B2YQMm ISTwFRE8hQD0bJ8wdApshjzr bGVmdDsgdmVydGljYWwtYWxp Z246 IHRvcDsnPlBhdGllbnQgTmFt YNk8N2PlBfm4OIAqyKdyQS5a qAXcNOnwEo8vcFbrmYstNA8x NTBp bcslo730QfWdd7ceVWJosGRq OSqaSTV0E28si0M4DDLgPKKs KMJ7oEQ5aA9htXmppkqdfMZe dDsg msJwtHcyEAzqOVkcV242CHTj yIipAeFjdmFwGWLmcGX9PV28 XW57uZQtb1A9tWP3Z6TsFKJp bmct alupyKV9HHPqYQHrjK74Vk1x uLslVb9bWFSoZEF2QZGxkCWt B1LhoK9nMoIjBRCmLIUfC6Jf eHQt FDjtB915NBqxMpA0CIInwqEa X3CfQVEapDpvXuP8c1E4Lk1M H4B8TO11RD20kCIym5P9bAD7 J3Bh IYUgfkpkgfeirMG3TSFqBYFp gT01Hk0dzHcaQc1bLNHoDFC3 LQOanFRkA6PgzF5wWfOjVXLw MDAw L7BmiGIfFLarI742HOlaEjU2 TLDzffFeC9CwTGVnuXtwIjE1 r5R6Cs4RAPj8OF92VM35uCUn c3R5 hZH9H0AeOKHfdvmjidhkkIM8 QNKaQZFbaD94Hq0xiHrvOa9z GZLkRIG2RDChlNWsN6RnhC5c OiAj SEZkASFwT1HhaLQsXTqnQ442 ORujNsC2ARWnjpIoY0OzEQHi jUubTkP9t1K3Ge6GAWJrTF07 IFR5 oSH2CN50YA32O6QbKtxnrZDu bGU+PHRhYmxlIHdpZHRoPScx CRAiUrQjrKqqQS8aUy2nDGXj LWNv wSzkeRUdJrCqc4iwWHJnKGps EF0ppMopT6TlaAZ5LNTxm5u4 St15G05uP5AyhUT+PGNvbCB3 aWR0 fD1rBpWuJfC0FNgzE213EeVg sXXxZplra4elh1yynOj7GyN0 XSSaooNviPnpMSH9t8DdQn17 Y29s IHdpZHRoPSIxNSUiIHZhbGln bx9obA6hSn7+DWYmlSC7mQM5 pE0cCyVjGhZ7SOajQ536ReAh cCIv Xygsl1jve2phyPd3ZaTxBCJu suFqrSakZFZ1i9WyMp66D8Kt bCtqn7XpOfc3go14pAOuk2H8 bGU9 K6CiIICyibsjvJDdgAndUP1t MMPcunkcPJQxwO9pSDRnU4l5 MsJpKwJ3BNisP1KjyqL8XSLy cHQg CWbcQLS1A60nt0N0ZXNnREDh JDP5dSP0pH5vuOwuymbxuAJw jXrxquAzhFtsSPjhUKurX309 IHRv uLhqKBQlzX7iRBVodUTnuKzz ZH1lYYWdqyxrQhZJIsGTLoUK LCBNRUdBTiBNQVJJRTwvdGQ+ PHRk GDD5xJwkIQptOLLwgD8aNUUq I2j3YtOuSaI3JAmzP5JnEXMb vocpNp39vI4lPhJpSiS3KAob O2Zv imK9EYMtdWRwHVohIHI9Q63e k8C6VBZqCIVcITV9jTH1nD6p bGlnbjogbGVmdDsgdmVydGlj YWwt UDukB665FEVkcSnrRpAuBsM6 QyI2MSV6H6OnBeg4PNByqGfo TH6apVCtHHyzYl4bxNhzmFpx MC4w YRMftbtcNWLkkI1vFWKeoUNf oQyjJQ2rBBNadvqnk709QxRk WUW6EVSnnMOiM1VjrW1aFwUt MDAw DMPsM4PixKOlOQciK196OJok IjY4FMXeihUoA3HxUREzuPdm HoJ5r6T9Vz7kRNOVINFljans dGQ+ FIPtJUO9bCrcPAbzFTZcgJ3d PCWfI5m5QuMoRlD6VInrH1Nw ETExlmucAr18oS7wYaOyJrI9 MGlu P1BuuwS1DURevLFnAFhlHQJ0 R57tv4Z4RIWxJZOgYVT7vEC2 pW0wyTalpkldoOBekOvfkaXb dGlj EPfvUPboI089HBZpoPbvMnUV TUFMRTwvdGQ+SRXaXTV5mYxu QZwkBPAtfS2wSTAiB0n6SsEp LjA1 RBiqG1BuDCPlleeeDo64gP2i XkLnBsL8CHzkI4NaqoE0GWGb qRIiCSozGGF0W52jq5E7EWXj MDAw UPI5eHO8wZ9ttVbtrwbeqFWy sZanqaCndKtdNSakRNtzU956 RBSxwBzbKrXbUDGeCW6miVdf dGQ+ BY59fp91L8SbZvlbTym9WILw CNG1tSJ0uL3qOFIhJDtxa1X0 pEH8H4WqmmGsot0od6dnOHJj ZTog P54xmOCdt2I4JBRaiTN0FYMz nLjjLaElbZ53Uwe+PGNvbGdy c4JkEdtcz8qco8wycAt9AbOi JSIg ctFgyHtbZVO7k9PoMe25Y85f IHdpZHRoPSIzMCUiIHZhbGln pe9btH5wTm9+LKHzcYI2uPX5 aD0i QiTkQwD8KSzoL979GjUjnQIh Botrn5zic6oajZl4RrNhTWIl dcMdiZcuHOP5p1VzXr86U9Uv bGdy p9HjXci6uo27gMTdb2Z2lDP1 K5EgFVWneyxeoJBsgEhiKW3d LTYekgfbEFWkyH8rMZPmD9v0 OiAw NyL2UNxuX3BrqoZ4TDYbePDa REMhxXOQwR8oatjud8uztouc WcOmIDBzPMj6IRh0NKGrhUpa OiBs FGC1YlQ6YUO9vUCxlK0dgMlz twdvcL3iPps+MJo0l8kavZLx AB9tzYG1WG55HL07jADce2Z0 bGU9 O5UqXEDomwooiroemTJ2QKJi OETxzV73Cp0bvUvhAl7bDERp ZFQ6PEIxzFBdH8WnoD4mTcFi MDAw PKZfT6BhuVNxVPxlG348YHck SaU9PEQvkiIyW6WjJYLlhAtb EnF2z2S8Ow5LAV15BC61HT07 dGQg d0U3mBK4L5RyVOOujwjctbrg yNR5ZNRuWRTcbJ13Ci3rmLua Us0mOLIeKNK8IFHpzOAiK7Bj bG9y FoXtTZOtNNWrM5YuuBVsSEzx K567MWpgCtR6DICzfbTsJ2Cq VAOzxCpxXyN2z3K5Tu0MPa33 PC90 XU07qTBfg4R8vZQ5P5LfPFQg qrnqhpfqfLC3KNDaRYOuuT90 Lh6gsQwdSf0fVDUyAHR6PREd bWVz A0MtdQ6jPiZcVJDcAWWxE3Pa nALzRGowJ786DQbnBcD4DBDh btNmJ9UsTQQpvSliIhD4h6V3 Jz5Q OHsjjri3K3MrDzufuLL+PC90 IWWxXZ08pVFhoIRwp4gxoIp0 UdXcSNYsQSB9bFdyZZtbu6Ga ZXIt Y29 (more content not included)... Normal [facility] .Auto Diff 110-11-2020 Auto Bland % 6 % Normal 05-04 [facility] Comment on above: Performed By: #### 7 [id number], [id number], [id number], [id number] ####[facility] (DEFAULT)[address] [place] [address] Baso Abs# 0.0 x10 Normal 0.0-0.2 [facility] Comment on above: Performed By: #### 7 186757, [id number], [id number], [id number] ####[facility] (DEFAULT)[address] [place] [address] 60364 Basophils/100 WBC (Bld) 0.3 % Normal 0.2-2.0 [facility] Comment on above: Performed By: #### 7 756924, [id number], [id number], [id number] ####[facility] (DEFAULT)[address] [place] [address] 51502 Eos Abs# 0.2 x10 Normal 0.0-0.4 [facility] Comment on above: Performed By: #### 7 326377, [id number], 40756563, [id number] ####[facility] (DEFAULT)[address] [place] [address] 20519 Eosinophils/100 WBC (Bld) 3.4 % Normal 0.9-4.0 [facility] Comment on above: Performed By: #### 7 721342, [id number], 73539263, [id number] ####[facility] (DEFAULT)[address] [place] [address] 27337 Lymph Abs# 2.5 x10 Normal 1.3-2.9 [facility] Comment on above: Performed By: #### 7 434493, [id number], 44512902, [id number] ####[facility] (DEFAULT)[address] [place] [address] 93291 Lymphocytes/100 WBC (Bld) 41 % Normal 14-48 [facility] Comment on above: Performed By: #### 7 861166, [id number], 70481138, [id number] ####[facility] (DEFAULT)[address] [place] [address] 80519 Bland Abs# 0.4 x10 Normal 0.0-0.8 [facility] Comment on above: Performed By: #### 7 086299, [id number], 24230651, [id number] ####[facility] (DEFAULT)[address] [place] [address] 29224 Neut Abs# 3.0 x10 Normal 1.5-9.2 [facility] Comment on above: Performed By: #### 7 613343, [id number], 97877937, [id number] ####[facility] (DEFAULT)[address] [place] [address] Neutrophils/100 WBC (Bld) 50 % Normal 44-88 [facility] Comment on above: Performed By: #### 7 736977, [id number], 84748359, [id number] ####[facility] (DEFAULT)[address] [place] [address] CBC w/ Auto Diffon 1 Erythrocyte distribution width (RBC) [Ratio] 13.2 % Normal 11.5-15.0 [facility] Comment on above: Performed By: #### 7 819676, [id number], 13474721, [id number] #### [facility] (DEFAULT) [address] [place] [address] Hematocrit (Bld) [Volume fraction] 36.8 % Normal 33.7-40.4 [facility] Comment on above: Performed By: #### 7 034438, [id number], 33360802, [id number] #### [facility] (DEFAULT) [address] [place] [address] Hemoglobin (Bld) [Mass/Vol] 12.4 g/dL Normal 11.3-15.9 [facility] Comment on above: Performed By: #### 7 151752, [id number], 75068514, [id number] #### [facility] (DEFAULT) [address] [place] [address] Instr WBC 6.1 x10 Invalid Interpretation Code [facility] Comment on above: Performed By: #### 7 929245, [id number], 28201106, [id number] #### [facility] (DEFAULT) [address] [place] [address] Man Diff? Auto Normal [facility] Comment on above: Performed By: #### 7 655931, [id number], 04747655, [id number] #### [facility] (DEFAULT) [address] [place] [address] 17954 MCH (RBC) [Entitic mass] 29 pg Normal 24-34 [facility] Comment on above: Performed By: #### 7 064832, [id number], 05408373, [id number] #### [facility] (DEFAULT) [address] [place] [address] 42312 MCHC (RBC) [Mass/Vol] 34 g/dL Normal 26-37 [facility] Comment on above: Performed By: #### 7 666794, [id number], 16318615, [id number] #### [facility] (DEFAULT) [address] [place] [address] 58060 MCV (RBC) [Entitic vol] 87 fL Normal 81-100 [facility] Comment on above: Performed By: #### 7 881024, [id number], 40878157, [id number] #### [facility] (DEFAULT) [address] [place] [address] 36207 Platelet 204 x10 Normal 138-427 [facility] Comment on above: Performed By: #### 7 657808, [id number], 42419080, [id number] #### [facility] (DEFAULT) [address] [place] [address] 71944 Platelet mean volume (Bld) [Entitic vol] 9.6 fL Normal 6.3-10.2 [facility] Comment on above: Performed By: #### 7 289105, [id number], 82727969, [id number] #### [facility] (DEFAULT) [address] [place] [address] 29820 RBC 4.25 x10 Normal 3.70-5.30 [facility] Comment on above: Performed By: #### 7 363301, [id number], 84783310, [id number] #### [facility] (DEFAULT) [address] [place] [address] 71807 WBC 6.1 x10 Normal 3.5-10.5 [facility] Comment on above: Performed By: #### 7 159385, 4537168224, 23369221, 2429171561 #### [facility] (DEFAULT) [address] [place] [address] 15445 CMP Standardon 10-11-2020 Albumin [Mass/Vol] 3.9 g/dL Normal 3.5-5.0 [facility] Comment on above: Performed By: #### 7 249789, [id number], 34867236, [id number] ####[facility] (DEFAULT)[address] [place] [address] 01476 Albumin/Globulin [Mass ratio] 1.3 {ratio} Low 1.4-2.6 [facility] Comment on above: Performed By: #### 7 146977, 2439605599, 39543847, [id number] ####[facility] (DEFAULT)[address] [place] [address] 76365 Alk Phos 67 IU/L Normal 32-91 [facility] Comment on above: Performed By: #### 7 335724, [id number], 25884523, [id number] ####[facility] (DEFAULT)[address] [place] [address] 63866 ALT [Catalytic activity/Vol] 28.0 U/L Normal 14.0-54.0 [facility] Comment on above: Performed By: #### 7 660115, 5177989346, 35778159, 9777892854 ####[facility] (DEFAULT)[address] [place] [address] 08888 Anion gap [Moles/Vol] 14.0 mmol/L Normal 5.0-19.0 [facility] Comment on above: Performed By: #### 7 214910, 7032874346, 48108727, [id number] ####[facility] (DEFAULT)[address] [place] [address] 69828 AST [Catalytic activity/Vol] 16 U/L Normal 15-41 [facility] Comment on above: Performed By: #### 7 528941, 5802081573, 95742769, [id number] ####[facility] (DEFAULT)[address] [place] [address] 05839 Bili Total 0.3 mg/dL Normal 0.3-1.2 [facility] Comment on above: Performed By: #### 7 713077, 1376004392, 01225072, [id number] ####[facility] (DEFAULT)[address] [place] [address] 71067 Calcium [Mass/Vol] 9.0 mg/dL Normal 8.9-10.3 [facility] Comment on above: Performed By: #### 7 768640, 2472736226, 87868517, [id number] ####[facility] (DEFAULT)[address] [place] [address] 60978 Chloride [Moles/Vol] 109 mmol/L Normal 101-111 [facility] Comment on above: Performed By: #### 7 485671, 6799772693, 41279135, [id number] ####[facility] (DEFAULT)[address] [place] [address] 73094 CO2 [Moles/Vol] 21 mmol/L Normal 21-32 [facility] Comment on above: Performed By: #### 7 342153, 9125677471, 80978967, [id number] ####[facility] (DEFAULT)[address] [place] [address] 61613 Creatinine [Mass/Vol] 0.90 mg/dL Normal 0.60-1.30 [facility] Comment on above: Performed By: #### 7 106219, [id number], 79796959, [id number] ####[facility] (DEFAULT)[address] [place] [address] 26968 Globulin (S) [Mass/Vol] 3.1 g/dL Normal 1.5-4.3 [facility] Comment on above: Performed By: #### 7 077412, 9854656063, 58605200, 1025353837 ####[facility] (DEFAULT)[address] [place] [address] 39628 Glucose [Mass/Vol] 95.0 mg/dL Normal 74.0-118.0 [facility] Comment on above: Performed By: #### 7 675031, 5892041537, 13194926, [id number] ####[facility] (DEFAULT)[address] [place] [address] 76632 Osmolality 282 mOsm/L Invalid Interpretation Code [facility] Comment on above: Performed By: #### 7 554580, [id number], 30285941, [id number] ####[facility] (DEFAULT)[address] [place] [address] 70793 Potassium [Moles/Vol] 4.0 mmol/L Normal 3.6-5.1 [facility] Comment on above: Performed By: #### 7 033324, 1674457108, 55945619, [id number] ####[facility] (DEFAULT)[address] [place] [address] 34663 Protein [Mass/Vol] 7.0 g/dL Normal 6.5-8.1 [facility] Comment on above: Performed By: #### 7 387889, 4089483927, 63585705, 0699563296 ####[facility] (DEFAULT)[address] [place] [address] 60017 Sodium [Moles/Vol] 140.0 mmol/L Normal 136.0-144.0 [facility] Comment on above: Performed By: #### 7 [id number], [id number] ####[facility] (DEFAULT)[address] [place] [address] 27497 Urea nitrogen [Mass/Vol] 20 mg/dL Normal 8-26 [facility] Comment on above: Performed By: #### 7 [id number], [id number] ####[facility] (DEFAULT)[address] [place] [address] 20727 Urea nitrogen/Creatinine [Mass ratio] 22.2 mg/mg High 4.6-16.2 [facility] Comment on above: Performed By: #### 7 [id number], [id number], [id number] ####[facility] (DEFAULT)[address] [place] [address] 17396 Discharge Instructionson Discharge Instructions [id number] TIFF Normal [facility] ED Clinical Summaryon 2020 ED Clinical Summary [facility] - Emergency Department [address] [place] [id number] ED Clinical Summary PERSON INFORMATION Name: YANI WOODY Age: 30 Years Sex: FEMALE : 1990 MRN: Acct#: Visit Reason: Pelvic pain; PELVIC AREA PAIN Arrival: 10/11/2020 09:15:57 Discharge: 10/11/2020 12:33:00 LOS: 000 03:18 Check In: 10/11/2020 09:15:57 Checkout:10/11/2020 12:33:00 Address: [address] [place] [address] PCP: Provider, None PROVIDER INFORMATION Provider Role Assigned Unassigned DAVID GALVAN ED PA 10/11/2020 09:24:51 Linn Decker STAKING ENGINEER Nurse 10/11/2020 09:28:06 Kristi Case STAKING ENGINEER Nurse 10/11/2020 11:45:12 VITALS INFORMATION Vital Sign [...] test which were negative. She contacted her cognos developer who indicated he could not see her [...] - pharynx pink and moist. NECK: -Supple (xcae-si-lmrep): non-tender. CARD: -Rate and rhythm: Regular -Edema: No -Calf pain: No RESP: -Respiratory effort and chest excursion with respirations: Normal -Breath sounds equal bilaterally: Clear -Wheezes: No -Rales: No BACK: -Signs of pain with movement: No ABD: -Distended: No -Bruits: No -Bowel sounds: Normal. -Deep palpation: Non-tender, soft, no guarding or r (more content not included)... Normal [facility] ED Note - Physicianon 2020 ED [...] test which were negative. She contacted her cognos developer who indicated he could not see her [...] - pharynx pink and moist. NECK: -Supple (faqa-hs-bowjc): non-tender. CARD: -Rate and rhythm: Regular -Edema: [...] I r (more content not included)... Normal [facility] ED Note-Nursingon 10-11-2020 ED Note-Nursing Patient arrives to [facility] ED via private car with c/o [...] within reach. Will continue to monitor. Normal [facility] ED Patient Summaryon 021 ED Patient Summary [facility] - Emergency Department [address] [place] [address] PATIENT DISCHARGE INSTRUCTIONS Patient Information Name: YANI WOODY Age: 30 Years Date of : 1990 Reason For Visit: Pelvic pain; PELVIC AREA PAIN Arrival Time: 10/11/2020 09:15:57 Primary Care Physician: Provider, None Attending Physician: Linus Neumann MD Comment: Visit Diagnosis: Diagnoses This Visit Ovarian cyst (N83.209) Pelvic congestion syndrome (N94.89) Pelvic pain ([id number] -[id number]) Prescription Information: If you have been given a prescription for narcotics, seek immediate medical attention if you have any difficulty breathing or any sudden status changes such as confusion and sleepiness. If you or anyone you know is experiencing suicidal thoughts, mental health, alcohol and/or drug addiction problems; contact the [facility] 13/11 Crisis Hotline -Text 4HNCT cv [id number]. If you received any narcotics, sedation, or [...] any legal documents With: Address: When: Cordelia [address]la [address] [place] [address] Business (1) Within 2 to 4 days Comments: Follow-up with cognos developer in the next few days for reevaluation. Return at anytime for reevaluation or if you have worsening symptoms, vaginal bleeding, chest pains, shortness of breath or any other problems. Continue to stay hydrated. Medication Information: The exam and treatment you received today in the [facility] Emergency Department were for an urgent problem and are not intended as complete care. It is important for you to follow up with a doctor, nurse practitioner, or physician?s salon assistant for ongoing care. If your symptoms [...] so we can reach you if necessary. [facility] Emergency Department has provided you with a complete list of medications post discharge. Please inform your product inspection supervisor/provider of your visit and for further instruction [...] Image. Unabl (more content not included)... Normal [facility] Extra Greenon 10-11-2020 Tube Collected Yes Invalid Interpretation Code [facility] Comment on above: Performed By: #### 7 [id number], [id number], [id number], [id number] #### [facility] (DEFAULT) [address] [place] [address] 27099 Lactic Acidon 10-11-2020 Lactic Acid 12.4 mg/dL Normal 4.5-19.8 [facility] Comment on above: Performed By: #### 2 [id number] ####[facility] (DEFAULT)[address] [place] [address] 68446 Test Urine 1on U Preg Negative [facility] Comment on above: Performed By: #### 3 [id number] ####[facility] (DEFAULT)[address] [place] [address] 52040 U Preg Internal Control Pass [facility] Comment on above: Performed By: #### 3 [id number] ####[facility] (DEFAULT)[address] [place] [address] 77052 UA Sdker3qk 10-11-2020 UA Bacteria Rare Normal [facility] Comment on above: Performed By: #### 2 [id number] ####[facility] (DEFAULT)[address] [place] [address] 37561 UA RBC 0-2 Normal [facility] Comment on above: Performed By: #### 2 [id number], [id number] ####[facility] (DEFAULT)[address] [place] [address] 52122 UA Squam Epi Few Normal [facility] Comment on above: Performed By: #### 2 [id number], [id number] ####[facility] (DEFAULT)[address] [place] [address] 03051 UA WBC 0-2 Normal [facility] Comment on above: Performed By: #### 2 [id number], [id number] ####[facility] (DEFAULT)[address] [place] [address] 85610 UA w Micro, if Ind Standardo n 10-11-2020 Micro? Indicated Normal [facility] Comment on above: Performed By: #### 2 [id number], [id number] ####[facility] (DEFAULT)[address] [place] [address] 00822 Breakpoint UA Normal [facility] Comment on above: Performed By: #### 2 [id number], [id number] ####[facility] (DEFAULT)[address] [place] [address] 78656 Color (U) Yellow Normal [facility] Comment on above: Performed By: #### 2 [id number] ####[facility] (DEFAULT)[address] [place] [address] 96521 Glucose (U) [Mass/Vol] Negative Normal [facility] Comment on above: Performed By: #### 2 [id number], [id number] ####[facility] (DEFAULT)[address] [place] [address] 48512 Ketones Ql (U) Negative Normal [facility] Comment on above: Performed By: #### 2 [id number], [id number] ####[facility] (DEFAULT)[address] [place] [address] 98385 UA Bilirubin Negative Normal [facility] Comment on above: Performed By: #### 2 [id number], [id number] ####[facility] (DEFAULT)[address] [place] [address] 43094 UA Blood TRACE Abnormal NEGATIVE [facility] Comment on above: Performed By: #### 2 [id number], [id number] ####[facility] (DEFAULT)[address] [place] [address] 44121 UA Clarity CLEAR Normal CLEAR [facility] Comment on above: Performed By: #### 2 [id number], [id number] ####[facility] (DEFAULT)[address] [place] [address] 05905 UA Leuk Est Negative Normal NEGATIVE [facility] Comment on above: Performed By: #### 2 [id number], [id number] ####[facility] (DEFAULT)[address] [place] [address] 14704 UA Nitrite Negative Normal NEGATIVE [facility] Comment on above: Performed By: #### 2 [id number], [id number] ####[facility] (DEFAULT)[address] [place] [address] 56095 UA pH 6.0 Normal 5-8 [facility] Comment on above: Performed By: #### 2 [id number], [id number] ####[facility] (DEFAULT)[address] [place] [address] 23427 UA Protein Negative Normal [facility] Comment on above: Performed By: #### 2 [id number], [id number] ####[facility] (DEFAULT)[address] [place] [address] 42131 UA Spec Grav 1.025 Normal 1.001-1.035 [facility] Comment on above: Performed By: #### 2 [id number], [id number] ####[facility] (DEFAULT)[address] [place] [address] 04915 UA Urobilinogen 0.2 mg/dL Normal 0.2-1.0 [facility] Comment on above: Performed By: #### 2 [id number], [id number] ####[facility] (DEFAULT)[address] [place] [address] 42664 Urine Source Clean Catch Normal [facility] Comment on above: Performed By: #### 2 [id number], [id number] ####[facility] (DEFAULT)[address] [place] [address] US Pelvis Non-OB Completeon 10-11-2020 US Pelvis [...] 10/11/20 12:29 p Technologist: PM [facility] US Transvaginalon 10-11-2020 US Transvaginal US Pelvis [...] Dominguez MD 10/11/20 12:29 p Technologist: PM [facility] Video Visit - Telehealtho n 01-28-2020 Video Visit - Telehealth Chief Complaint Medication follow up via Dreamp[employer] video Subjective Interval History/HPI This visit was conducted via two-way, real-time interactive video communications from my office using [employer] MXR due to the restrictions of the COVID-19 pandemic. No physical exam was conducted other than those areas of the body visible to telecommunications with the patient located at [address] [place] [address] [phone], with no one else in attendance. If [...] day(s), # 42 tab(s), Refills(s) 5, Pharmacy: [facility]/pharmacy #[id number], 156, cm, 01/28/20 8:32:00 EDT, Height/Length Dosing, 124, kg, 01/28/20 8:32:00 EDT, Weight Dosing 3. 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/pharmacy #[id number], 156, cm, 01/28/20 8:32:00 EDT, Height/Length Dosing, 124, kg, 01/28/20 8:32:00 EDT, Weight Dosing lurasidone, 60 mg = 1 tab(s), Oral, Daily, @supper with food, # 30 tab(s), Refills(s) 5, Pharmacy: [facility]/pharmacy #[id number], 156, cm, 01/28/20 8:32:00 EDT, Height/Length Dosing, 124, kg, 01/28/20 8:32:00 EDT, Weight Dosing metformin, 500 mg = 1 tab(s), Oral, BID, # 60 tab(s), Refills(s) 5, Pharmacy: [facility]/pharmacy #[id number], 156, cm, 01/28/20 8:32:00 EDT, Height/Length Dosing, 124, kg, 01/28/20 8:32:00 EDT, Weight Dosing General Treatment Plan Pharmacological management: Alternative medication plans were discussed with the patient/guardian. All relevant side effects and potenti (more content not included)... Normal [facility] Comment on above: Result Comment: Elec tronically Signed By: TERE TENORIO, Jocelyn\.br\Date and Time Signed: 01/28/20 09:14 EDT Vital Signs Date Time Vital Sign Value Performing Clinician Facility 12-17-2023 13:04-0400 Body height 152.4 cm [facility] 12-17-2023 13:04-0400 Body mass index (BMI) [Ratio] 59.5 kg/m2 [facility] 12-17-2023 13:04-0400 Body temperature 97.5 [degF] [facility] 12-17-2023 13:04-0400 Body weight 138.4 kg [facility] 12-17-2023 13:04-0400 Diastolic blood pressure 68 mm[Hg] [facility] 12-17-2023 13:04-0400 Heart rate 92 /min [facility] 12-17-2023 13:04-0400 Respiratory rate 18 /min [facility] 12-17-2023 13:04-0400 SaO2% (BldA) [Mass fraction] 95 % [facility] 12-17-2023 13:04-0400 Systolic blood pressure 125 mm[Hg] [facility] 06-29-2023 11:10-0500 Body height 154.9 cm Lindsey Karendorys [employer] Work Phone: [facility] 06-29-2023 11:10-0500 Body mass index (BMI) [Ratio] 56.08 kg/m2 Lindsey [employer] Work Phone: [facility] 06-29-2023 11:10-0500 Body weight 134.54 kg Lindsey Kredorys PADDER [employer] Work Phone: [facility] 06-29-2023 11:10-0500 Diastolic blood pressure 84 mm[Hg] Lindsey Kregel PADDER CUSHION-CLERK CARRIER Work Phone: [facility] [employer] [facility] 06-29-2023 11:10-0500 Heart rate 93 /min Lindsey Mcmahon PADDER CUSHION-CLERK CARRIER Work Phone: [facility] 06-29-2023 11:10-0500 SaO2% (BldA) [Mass fraction] 95 % Lindsey Mcmahon PADDER CUSHION-CLERK CARRIER Work Phone: [facility] [employer] [facility] 06-29-2023 11:10-0500 Systolic blood pressure 152 mm[Hg] Lindsey Mcmahon PADDER CUSHION-CLERK CARRIER Work Phone: [facility] 05-03-2023 13:16-0500 Body mass index (BMI) [Ratio] 54.61 kg/m2 Katerin Haynes PADDER CUSHION-CLERK CARRIER Work Phone: [facility] [employer] [facility] 05-03-2023 13:16-0500 Body weight 131.09 kg Katerin Haynes PADDER CUSHION-CLERK CARRIER Work Phone: [facility] [employer] [facility] 05-03-2023 13:16-0500 Diastolic blood pressure 74 mm[Hg] Katerin Haynes PADDER CUSHION-CLERK CARRIER Work Phone: [facility] [employer] [facility] 05-03-2023 13:16-0500 Heart rate 88 /min Katerin Doradoer PADDER CUSHION-CLERK CARRIER Work Phone: [facility] [employer] [facility] 05-03-2023 13:16-0500 Respiratory rate 18 /min Katerin Haynes PADDER CUSHION-CLERK CARRIER Work Phone: [facility] 05-03-2023 13:16-0500 SaO2% (BldA) [Mass fraction] 98 % Katerin Haynes PADDER CUSHION-CLERK CARRIER Work Phone: [facility] [employer] [facility] 05-03-2023 13:16-0500 Systolic blood pressure 126 mm[Hg] Katerin Doradoer PADDER CUSHION-CLERK CARRIER Work Phone: [facility] 02-05-2023 09:45-0400 Body height 154.94 cm Jovita Murcia Other [employer] Other 02-05-2023 09:45-0400 Body mass index (BMI) [Ratio] 57.32 kg/m2 Jovita Murcia Other [employer] Other 02-05-2023 09:45-0400 Body temperature 98 [degF] Jovita Murcia Other [employer] Other 02-05-2023 09:45-0400 Body weight 137.62 kg Jovita Murcia Other [employer] Other 02-05-2023 09:45-0400 Respiratory rate 18 /min Jovita Murcia Other [employer] Other 02-05-2023 09:45-0400 SaO2% (BldA) [Mass fraction] 97 % Jovita Murcia Other [employer] Other 12-22-2022 09:30-0400 Diastolic blood pressure 96 mm[Hg] MD Aline Villalobos Work Phone: [facility] 12-22-2022 09:30-0400 Heart rate 60 /min MD Aline Villalobos Work Phone: [facility] 12-22-2022 09:30-0400 Respiratory rate 16 /min MD Aline Villalobos Work Phone: [facility] 12-22-2022 09:30-0400 SaO2% (BldA) [Mass fraction] 99 % MD Aline Villalobos Work Phone: [facility] 12-22-2022 09:30-0400 Systolic blood pressure 154 mm[Hg] MD Aline Villalobos Work Phone: [facility] 12-22-2022 08:06-0400 Body height 152.4 cm MD Aline Villalobos Work Phone: [facility] 12-22-2022 08:06-0400 Body weight 137.89 kg MD Aline Villalobos Work Phone: [facility] 07-22-2022 11:35-0400 Respiratory rate 18 /min Inge Causeyazza DO Work Phone: [facility] 07-22-2022 08:00-0400 Body temperature 99 [degF] Inge Causeyazza DO Work Phone: [facility] 07-22-2022 08:00-0400 Diastolic blood pressure 63 mm[Hg] Inge Causeyazza DO Work Phone: [facility] 07-22-2022 08:00-0400 Heart rate 78 /min Inge Mojicaza DO Work Phone: [facility] 07-22-2022 08:00-0400 SaO2% (BldA) [Mass fraction] 99 % Inge Mojicaza DO Work Phone: [facility] 07-22-2022 08:00-0400 Systolic blood pressure 137 mm[Hg] Inge Piazza DO Work Phone: [facility] 07-18-2022 17:35-0400 Body height 154.94 cm Alesha Cortez Other [employer] Other 07-18-2022 17:35-0400 Body mass index (BMI) [Ratio] 62.16 kg/m2 Alesha Cortez Other [employer] Other 07-18-2022 17:35-0400 Body temperature 96 [degF] Alesha Cortez Other [employer] Other 07-18-2022 17:35-0400 Body weight 149.23 kg Alesha Cortez Other [employer] Other 07-18-2022 17:35-0400 Respiratory rate 18 /min Alesha Cortez Other [employer] Other 07-18-2022 17:35-0400 SaO2% (BldA) [Mass fraction] 97 % Alesha Cortez Other [employer] Other 07-15-2022 17:16-0400 Diastolic blood pressure 83 mm[Hg] Inge Causeyazza DO Work Phone: [facility] 07-15-2022 17:16-0400 Heart rate 97 /min Inge Causeyazza DO Work Phone: [facility] 07-15-2022 17:16-0400 Respiratory rate 16 /min Inge Causeyazza DO Work Phone: [facility] 07-15-2022 17:16-0400 Systolic blood pressure 142 mm[Hg] Inge Causeyazza DO Work Phone: [facility] 07-15-2022 15:44-0400 Body temperature 98.49 [degF] Inge Causeyazza DO Work Phone: [facility] 03-21-2022 10:30-0500 Body height 154.94 cm [place] Wells Other [employer] Other 03-08-2022 02:06-0500 Body weight 141.0696 kg LILIA RUIZ [facility] Comment on above: Performed By: #### DAPHNE TOBIAS #### [facility] [address] [place] [address] Dr. Valeria Farris Encounters Encounter Date Encounter Type Care Provider Facility Start: 01-15-2024 End: 01-15-2024 ambulatory NOAH PETERSON Not Available Start: 01-03-2024 End: 01-03-2024 ambulatory NOAH NICHOLAS Not Available Start: 12-31-2023 End: 12-31-2023 ambulatory CLAUDIA VILLAR [facility] Start: 12-29-2023 End: 12-29-2023 [facility] Start: 12-17-2023 End: 12-17-2023 ambulatory [facility] Work Phone: Start: 12-17-2023 End: 12-17-2023 Patient encounter procedure [facility] Work Phone: Start: 12-17-2023 End: 12-17-2023 ambulatory ONAH NICHOLAS Not Available Start: 12-06-2023 End: 12-06-2023 ambulatory [facility] Kaushik [facility] Start: 11-29-2023 End: 11-29-2023 ambulatory NOAH NICHOLAS Not Available Start: 11-12-2023 End: 11-12-2023 ambulatory CHARMAINE HAIRSTON Not Available Start: 11-08-2023 End: 11-08-2023 ambulatory MATEO Kaushik [facility] Start: 10-29-2023 End: 10-29-2023 ambulatory NOAH NICHOLAS Not Available Start: 10-11-2023 End: 10-11-2023 ambulatory NOAH NICHOLAS Not Available Start: 10-09-2023 End: 10-09-2023 ambulatory MATEO Kaushik [facility] Start: 09-11-2023 End: 09-11-2023 ambulatory NOAH NICHOLAS Not Available Start: 09-10-2023 End: 09-11-2023 Emergency department patient visit MANUEL GODINEZ [facility] Start: 08-28-2023 End: 08-28-2023 [facility] Start: 08-24-2023 End: 08-24-2023 ambulatory CHAS BALDERAS Not Available Start: 08-14-2023 End: 08-14-2023 ambulatory NOAH NICHOLAS Not Available Start: 07-19-2023 End: 07-19-2023 ambulatory CHARMAINE HAIRSTON Not Available Start: 07-02-2023 Telephone encounter Lindsey Deanna philip PADDER CUSHION-CLERK CARRIER Work Phone: [facility] Comment on above: Sleep Lab (PSG) Start: 06-29-2023 End: 06-29-2023 ambulatory [facility] Start: 06-29-2023 End: 06-29-2023 Office outpatient new 45 minutes Lindsey Deanna Mcmahon PADDER CUSHION-CLERK CARRIER Work Phone: [facility] Comment on above: MOLINA (obstructive sle ep apnea) (Primary Dx); Morning headache; Memory loss; Fatigue, unspecified type; Snoring Start: 06-24-2023 Refill Katerin grewal PADDER CUSHION-CLERK CARRIER Work Phone: [facility] Start: 06-14-2023 End: 06-14-[address] [facility] Start: 06-06-2023 Refill Katerin Leija uri PADDER CUSHION-CLERK CARRIER Work Phone: [facility] Start: 06-05-2023 Orders Only Sadaf Louis [facility] Comment on above: Low back pain, unspe cified back pain laterality, unspecified chronicity, unspecified whether sciatica present (Primary Dx) Start: 05-29-2023 Telephone encounter Orders Sup port User Transcribe [facility] Comment on above: Sleep Lab Start: 05-22-2023 End: 05-22-2023 ambulatory CHAS BALDERAS Not Available Start: 05-16-2023 End: 05-17-2023 Emergency department patient visit LINA HUGHES [facility] Start: 05-15-2023 End: 05-15-2023 ambulatory NOAH PETERSON Not Available Start: 05-03-2023 End: 05-03-2023 [facility] Start: 05-03-2023 End: 05-03-2023 Office outpatient visit 15 minutes Katerin Haynes PADDER CUSHION-CLERK CARRIER Work Phone: [facility] Comment on above: Acute non-recurrent maxillary sinusitis (Primary Dx) Start: 04-19-2023 End: 04-19-2023 ambulatory CHARMAINE HAIRSTON Not Available Start: 02-05-2023 End: 02-05-2023 ambulatory Jovita Murcia Other [employer] Other Start: 02-05-2023 Office outpatient vi sit 15 minutes Jovita Murcia [facility] Start: 12-22-2022 End: 12-22-2022 ambulatory Aline Villalobos Facility:[facility] Start: 12-22-2022 End: 12-22-2022 ambulatory MD Aline Villalobos Work Phone: [facility] Work Phone: Start: 12-22-2022 End: 12-22-2022 Patient encounter procedure MD Aline Villalobos Work Phone: [facility] [place] Work Phone: Start: 12-20-2022 End: 12-20-2022 ambulatory Aline Villalobos Facility:[facility] Start: 12-20-2022 End: 12-20-2022 ambulatory MD Aline Villalobos Work Phone: [facility] Work Phone: Start: 12-20-2022 End: 12-20-2022 Patient encounter procedure MD Aline Villalobos Work Phone: [facility] [place] Work Phone: Start: 09-04-2022 ambulatory RAYSA LINN [...] 07-18-2022 End: 07-18-2022 ambulatory Alesha Cortez Other [employer] Other Start: 07-18-2022 Office outpatient vi sit [...] 03-21-2022 End: 03-21-2022 ambulatory [place] Other [employer] Other Start: 03-21-2022 Office outpatient ne w 30 minutes [place] [facility] Start: 03-19-2022 End: 03-19-2022 ambulatory LILIA RUIZ Facility:[facility] Start: 03-15-2022 End: 03-16-[address] ONAH PETERSON Facility:[facility] Start: 03-03-2022 End: 03-04-[address] NOAH PETERSON Facility:[facility] Start: 02-27-2022 Blood pressure taking Jovita groves Other [employer] Other Start: 01-09-2022 End: 01-10-[address] [...] abnormal cervical Papanicolaou smear Jovita Murcia Other [employer] Other Start: 01-30-2018 End: 01-31-2018 Patient encounter DEFAULT PHYSICIAN Facility:[facility] Procedures Date Procedure Procedure Detail Performing Clinician Start: 12-22-2022 Investigation of transfusion reaction MD Aline Villalobos Work Phone: Start: 07-22-2022 Glucose blood reagent strip Hitesh A Jewel DO Work Phone: Start: 07-21-2022 Glucose blood reagent strip Hitesh A Leroy DO Work Phone: Start: 07-21-2022 Glucose blood reagent strip Hitesh A Leroy DO Work Phone: Start: 07-21-2022 Glucose blood reagent strip Hitesh A Leroy DO Work Phone: Start: 07-21-2022 Blood count complete auto&auto difrntl wbc Nash Bush DO Work Phone: Start: 07-20-2022 Glucose blood reagent strip Hitesh A Leroy DO Work Phone: Start: 07-20-2022 Cul prsmptv pthgnc o rganism scrn w/colony estimj Shelby Ramirez DO Work Phone: Start: 07-20-2022 Culture bacterial quanttative colony count urine Horacio Almazan MD Work Phone: Start: 07-20-2022 End: 07-20-2022 delivery only Hitesh Ester Holloway DO Work Phone: Start: 07-20-2022 Antibody [...] in Cervix by Cyto stain Katerin Haynes PADDER CUSHION-CLERK CARRIER Work Phone: Start: 12-28-2021 Diabetes mellitus screening Jovita Murcia Other Start: 11-30-2021 Adult depression scr eening assessment Katerin Dallas PADDER CUSHION-CLERK CARRIER Work Phone: End: 04-13-2021 screening Jovita Murcia Other End: 07-27-2021 screening Jovita Murcia Other Counseling Jovita Ramirezmond Other Depression screening Jovita Ramirezmond Other visit Jovita Hardeep nicolas Other Plan of Treatment Date Care Activity Detail Author Start: 12-21-2029 DTaP,Tdap and Td Vaccines (7 - Td or Tdap) DTaP,Tdap and Td Vaccines (7 - Td or Tdap) [facility] Start: 12-21-2029 DTaP/Tdap/Td vaccine (7 - Td or Tdap) DTaP/Tdap/Td vaccine (7 - Td or Tdap) [facility] Start: 05-29-2025 Screening for malign ant neoplasm of cervix Pap Smear [facility] Start: 06-28-2024 Adult BMI Screening Adult BMI Screen ing [facility] Start: 06-28-2024 Tobacco Screening Tobacco Screening [facility] Start: 06-13-2024 Adult BMI Screening Adult BMI Screen ing [facility] Start: 05-16-2024 Adult BMI Screening Adult BMI Screen ing [facility] Start: 05-16-2024 Tobacco Screening Tobacco Screening [facility] Start: 05-03-2024 Adult BMI Follow Up Plan Adult BMI Follow Up Plan [facility] Start: 05-03-2024 Adult BMI Screening Adult BMI Screen ing [facility] Start: 05-03-2024 Tobacco Screening Tobacco Screening [facility] Start: 03-12-2024 Adult BMI Follow Up Plan Adult BMI Follow Up Plan [facility] Start: 01-09-2024 End: 01-09-2024 Patient encounter procedure 01/09/2024 9:00 AM EDT Office Visit [facility] [place] [address] Lindsey Mcmahon, PADDER CUSHION-CLERK CARRIER [address] [address] [facility] Start: 10-23-2023 End: 10-23-2023 Clinical Support 10/23/2023 8:00 PM EDT Clinical Support [facility] [address] [place] [phone] [facility] Start: 07-11-2023 End: 07-11-2023 Patient encounter procedure 07/11/2023 10:00 AM EDT Office Visit [facility] [place] [address] Lnidsey Mcmahon, PADDER CUSHION-CLERK CARRIER [address] [address] [facility] Start: 06-25-2023 End: 06-25-2023 Patient encounter procedure 06/25/2023 10:30 AM EST Office Visit [facility] [address] [place] [address] Terese Valladares, PADDER CUSHION-CLERK CARRIER [address] [address] [facility] Start: 06-14-2023 End: 06-14-2023 Patient encounter procedure 06/14/2023 8:15 AM EST Appointment [facility] [address] [place] [phone] [facility] Start: 06-05-2023 [...] procedure 06/05/2023 1:30 PM EST Office Visit [facility] [address] [phone] Katerin Haynes, PADDER CUSHION-CLERK CARRIER [address] [place], [place] [phone] [facility] Start: 05-28-2023 End: 05-28-2023 Patient encounter procedure 05/28/2023 9:30 AM EST Office Visit [facility] [address] [place] [phone] Terese Valladares, PADDER CUSHION-CLERK CARRIER [address] [address] [facility] Start: 05-18-2023 Hemoglobin A1c measurement A1C test (Diabetic or Prediabetic) [facility] Start: 12-22-2022 COVID-19 Vaccine ( season) COVID-19 Vaccine ( season) [facility] Start: 12-22-2022 Influenza vaccination Influenza Vacc ine [facility] Start: 12-22-2022 Cerebrospinal fluid culture [facility] Start: 12-22-2022 End: 12-22-2022 [facility] Start: 11-30-2022 Depression Screening Depression Scre ening [facility] Start: 11-21-2022 Influenza vaccination Flu vacc ine (Season Ended) [facility] Start: 07-20-2022 End: 07-20-2022 Patient encounter procedure 07/20/2022 Routine Perinatology [facility] Start: 07-13-2022 End: 07-13-2022 Patient encounter procedure 07/13/2022 Routine Perinatology [facility] Start: 07-06-2022 End: 07-06-2022 Patient encounter procedure 07/06/2022 Routine Perinatology [facility] Start: 02-05-2022 Screening for malign ant neoplasm of cervix [facility] Start: 11-21-2021 Influenza vaccination Flu vaccine (# 1) [facility] [employer] Start: 01-21-2021 COVID-19 Vaccine (2 - Booster for Hipolito series) COVID-19 Vaccine (2 - Booster for Hipolito series) [facility] Start: 02-05-2013 Screening for malign ant neoplasm of cervix Pap smear [facility] Start: 02-05-2010 Hepatitis C screening Hepatitis C sc reen [facility] [employer] Start: 02-05-2007 HIV screening HIV screen [facility] Start: 2004 Depression Screen Depression Screen [facility] [employer] Start: 02-05-2002 Lipid panel Lipids [facility] Start: 02-05-1998 Pneumococcal 0-64 ye ars Vaccine (1 - PCV) Pneumococcal 0-64 years Vaccine (1 - PCV) [facility] Start: 02-05-1993 Varicella vaccine (1 of 2 - 2-dose childhood series) Varicella vaccine (1 of 2 - 2-dose childhood series) [facility] Bacteria identified in Unspecified specimen by Aerobe culture [facility] Bacteria identified in Unspecified specimen by Anaerobe culture [facility] End: 07-15-2022 COVID-19, Rapid COVID-19, Rapid Microbiology STAT One Time for 1 Occurrences starting 07/15/2022 until 07/15/2022 [facility] [employer] Work Phone: Comment on above: One Time for 1 Occur rences starting 07/15/2022 until 07/15/2022 CT CHEST PULMONARY EMBOLISM W CONTRAST CT CHEST PULMONARY EMBOLISM W CONTRAST Imaging STAT 07/15/2022 5:48 PM EDT [facility] Phone: Culture, Strep B Scr een, Vaginal/Rectal Culture, Strep B Screen, Vaginal/Rectal Microbiology [employer] Label Print 07/20/2022 6:56 PM EDT [facility] Phone: EKG 12 Lead EKG 12 Lead ECG Routine 07/15/2022 4:23 AM EDT [facility] Work Phone: Glucose [Mass/volume ] in Serum or Plasma POCT glucose Point of Care Testing Routine 4X Daily (AC & HS) until discontinued starting 07/20/2022 [facility] Phone: Comment on above: 4X Daily (AC & HS) u ntil discontinued starting 07/20/2022 End: 07-15-2022 Hepatitis C Antibody [facility] Phone: Comment on above: One Time for 1 Occur rences starting 07/15/2022 until 07/15/2022 Meningitis+Encephali tis pathogens DNA and RNA panel - Cerebral spinal fluid by SARANYA with non-probe detection [facility] Microscopic observat ion [Identifier] in Unspecified specimen by Gram stain [facility] Nonrebreather mask oxygen Nonrebreather mask oxygen Respiratory Care Routine As directed - RT (PRN) until discontinued starting 07/15/2022 [facility] Phone: Comment on above: As directed - RT (ME N) until discontinued starting 07/15/2022 Oxygen therapy [[facility] Initiate Oxygen Therapy Protocol Respiratory Care Routine Daily until discontinued starting 07/20/2022 [facility] Work Phone: Comment on above: Daily until disconti nued starting 07/20/2022 Patient Education [facility] L[facility] ar Puncture Discharge Instructions [facility] Work Phone: PROFILE I PROF ILE I Lab [employer] Label Print 07/15/2022 4:12 PM EDT [facility] Work Phone: End: 06-28-2024 PSG Diagnostic [facility] Routine MOLINA (obstructive sleep apnea) 1 Occurrences starting 06/29/2023 until 06/28/2024 [employer] Work Phone: Comment on above: 1 Occurrences starti ng 06/29/2023 until 06/28/2024 End: 07-15-2022 RAPID INFLUENZA A/B ANTIGENS RAPID INFLUENZA A/B ANTIGENS Microbiology STAT One Time for 1 Occurrences starting 07/15/2022 until 07/15/2022 [facility] Phone: Comment on above: One Time for 1 Occur rences starting 07/15/2022 until 07/15/2022 End: 07-20-2022 Specimen hold [facility] Phone: Comment on above: Once for 1 Occurrenc es starting 07/20/2022 until 07/20/2022 End: 07-20-2022 Specimen to Pathology Specimen to Pathology Lab Routine One Time for 1 Occurrences starting 07/20/2022 until 07/20/2022 [facility] Phone: Comment on above: One Time for 1 Occur rences starting 07/20/2022 until 07/20/2022 Spirometry panel Incentive linda metry Respiratory Care Routine Every 2hr while awake until discontinued starting 07/20/2022 [facility] Phone: Comment on above: Every 2hr while awak e until discontinued starting 07/20/2022 End: 07-15-2022 Troponin I.cardiac [Mass/volume] in Serum or Plasma Troponin Lab STAT One Time for 1 Occurrences starting 07/15/2022 until 07/15/2022 [facility] Phone: Comment on above: One Time for 1 Occur rences starting 07/15/2022 until 07/15/2022 Immunizations Immunization Date Immunization Notes Care Provider Radha bowen 04-21-2014 influenza virus vaccine, unspecified formulation Katerin Haynes APRN-CLERK CARRIER Work Phone: [employer] NEGATED: Highlighted row has not occurred!07-22-2022 tetanus toxoid, reduced diphtheria toxoid, and acellular pertussis vaccine, adsorbed Inge Leung DO Work Phone: [facility] Payers Date Payer Category Payer Unknown 2022 Unknown [id number] 2022 Medicaid [id number] 2022 Medicaid [facility] MEDICAID FORMERLY [facility] MEDICAID [id number] 2022-Present [address] [place] [address] 1.2.840.872691.1.13.424.2. 7.3.560645.315 1992 Unknown [id number] 2.16.840.1.246091.3.579.2. 647 1992 Unknown [id number] 2.16.840.1.606468.3.579.2. 593 1992 Unknown [id number] 2.16.840.1.079447.3.579.2. 593 1992 Unknown [id number] 2.16.840.1.357674.3.579.2. 593 1992 Unknown [id number] 2.16.840.1.234957.3.579.2. 593 1992 Unknown [id number] 2.16.840.1.809282.3.579.2. 593 1992 Unknown [id number] 2.16.840.1.395095.3.579.2. 593 1992 Unknown [id number] 2.16.840.1.366852.3.579.2. 593 1992 Unknown [id number] 2.16.840.1.928663.3.579.2. 593 1992 Unknown [id number] 2.16.840.1.964120.3.579.2. 593 1992 Unknown [id number] 2.16.840.1.177313.3.579.2. 593 1992 Unknown [id number] 2.16.840.1.379561.3.579.2. 593 1992 Unknown [id number] 2.16.840.1.664014.3.579.2. 593 1992 Unknown [id number] 2.16.840.1.997674.3.579.2. 593 1992 Unknown [id number] 2.16.840.1.997029.3.579.2. 593 1992 Unknown [id number] 2.16.840.1.244111.3.579.2. 593 1992 Unknown [id number] 2.16.840.1.608287.3.579.2. 593 1992 Unknown [id number] 2.16.840.1.775226.3.579.2. 593 1992 Unknown [id number] 2.16.840.1.348355.3.579.2. 593 1992 Unknown [id number] 2.16.840.1.672394.3.579.2. 593 1992 Unknown [id number] 2.16.840.1.907866.3.579.2. 593 1992 Unknown [id number] 2.16.840.1.026971.3.579.2. 593 1992 Unknown [id number] 2.16.840.1.416005.3.579.2. 593 1992 Unknown [id number] 2.16.840.1.367889.3.579.2. 593 1992 Unknown [id number] 2.16.840.1.624807.3.579.2. 593 1992 Unknown [id number] 2.16.840.1.744102.3.579.2. 593 1992 Unknown [id number] 2.16.840.1.057285.3.579.2. 593 1992 Unknown [id number] 2.16.840.1.661413.3.579.2. 593 1992 Unknown [id number] 2.16.840.1.960884.3.579.2. 593 1992 Unknown [id number] 2.16.840.1.259633.3.579.2. 593 1992 Unknown [id number] 2.16.840.1.612823.3.579.2. 593 1992 Unknown [id number] 2.16.840.1.001951.3.579.2. 593 1992 Unknown [id number] 2.16.840.1.430130.3.579.2. 593 1992 Unknown [id number] 2.16.840.1.257207.3.579.2. 593 1992 Unknown [id number] 2.16.840.1.342619.3.579.2. 593 1992 Unknown [id number] 2.16.840.1.243785.3.579.2. 593 1992 Unknown [id number] 2.16.840.1.863628.3.579.2. 593 1992 Unknown [id number] 2.16.840.1.599278.3.579.2. 593 1992 Unknown [id number] 2.16.840.1.767410.3.579.2. 593 1992 Unknown [id number] 2.16.840.1.093520.3.579.2. 593 1992 Unknown [id number] 2.16.840.1.843720.3.579.2. 593 1992 Unknown [id number] 2.16.840.1.455905.3.579.2. 1286 1992 Unknown [id number] 2.16.840.1.525085.3.579.2. 1286 1992 Unknown [id number] 2.16.840.1.414195.3.579.2. 1286 1992 Unknown [id number] 2.16.840.1.457607.3.579.2. 1286 1992 Unknown [id number] 2.16.840.1.868561.3.579.2. 1286 1992 Unknown [id number] 2.16.840.1.744864.3.579.2. 1286 1992 Unknown [id number] 2.16.840.1.735228.3.579.2. 1286 1992 Unknown [id number] 2.16.840.1.982643.3.579.2. 1286 1992 Unknown [id number] 2.16.840.1.142883.3.579.2. 1286 1992 Unknown [id number] 2.16.840.1.227686.3.579.2. 175 1992 Unknown [id number] 2.16.840.1.588856.3.579.2. 175 1992 Unknown [id number] 2.16.840.1.057536.3.579.2. 175 1992 Unknown [id number] 2.16.840.1.696928.3.579.2. 175 1992 Unknown [id number] 2.16.840.1.533093.3.579.2. 1259 1992 Unknown [id number] 2.16.840.1.642066.3.579.2. 1259 1992 Unknown [id number] 2.16.840.1.430665.3.579.2. 1259 1992 Unknown [id number] 2.16.840.1.519597.3.579.2. 1259 1992 Unknown [id number] 2.16.840.1.242678.3.579.2. 9 1992 Unknown [id number] 2.16.840.1.377009.3.579.2. 1259 1992 Unknown [id number] 2.16.840.1.542943.3.579.2. 9 1992 Unknown [id number] 2.16.840.1.668966.3.579.2. 9 1992 Unknown [id number] 2.16.840.1.387383.3.579.2. 9 1992 Unknown [id number] 2.16.840.1.293513.3.579.2. 9 1992 Unknown [id number] 2.16.840.1.648879.3.579.2. 9 1992 Unknown [id number] 2.16.840.1.105500.3.579.2. 1259 1992 Unknown [id number] 2.16.840.1.158249.3.579.2. 9 1992 Unknown [id number] 2.16.840.1.106192.3.579.2. 1259 1959 Medicaid [id number] 1.2.840.390195.1.13.239.2. 7.3.506699.315 1959 Private Health Insurance [id number] 1.2.840.561993.1.13.239.2. 7.3.798330.315 1959 Self-pay 1959 Unknown [id number] 1959 Worker's Compensation [id number] 2.16.840.1.705334.19 Medicaid [place] [employer] [id number] Private Health Insurance [id number] 2.16.840.1.378857.19 Private Health Insurance [facility] [id number] Unknown [id number] 2.16.840.1.676140.19 Unknown [id number] 2.16.840.1.242783.3.579.2. 593 Unknown [id number] 2.16.840.1.143017.3.579.2. 531 Unknown [id number] 2.16.840.1.185069.3.579.2. 531 Social History Date Type Detail Facility Unknown if ever smoked [facility] Other Start: 06-03-2020 End: 05-03-2023 Sex Assigned At [facility] Other Start: 06-22-2022 End: 06-29-2023 Tobacco smoking status NHIS Ex-smoker [facility] Start: 05-25-2020 End: 12-22-2022 History of tobacco use Current smoker [facility] Phone: End: 11-20-2017 History of tobacco use Cigarette Smoker [facility] Phone: Start: 06-22-2022 End: 06-29-2023 Tobacco use and exposure Smokeless tobacco non-user [facility] Phone: Start: 06-29-2022 End: 06-29-2023 Alcohol intake Ex-drinker (finding) [facility] Phone: Start: 06-22-2022 Tobacco Comment Quit in 2019 06/22/2022 [employer] Phone: Start: 11-20-2021 [facility] Phone: Start: 1992 Sex Assigned At Female [facility] Start: 07-10-2022 End: 07-20-2022 Exposure to SARS-CoV-2 (event) Not sure [facility] Phone: Start: 06-03-2020 End: 11-16-2022 Cigarettes smoked current (pack per day) - Reported 0.5 [facility] Adolescent depressio n screening assessment 2 [facility] Start: 11-30-2021 [facility] Start: 11-16-2022 Tobacco Comment [facility] July [facility] Start: 05-16-2022 Gender identity Identifies as female gender (finding) [facility] Start: 05-25-2022 Sexual orientation Heterosexual (finding) [facility] Medical Equipment Procedure Code Equipment Code Equipment Origin al Text Equipment Identifier Dates BD ULTRA-FINE PE N NEEDLES 29G X 12.7MM MIS [id number] Start: 04-03-2022 ONETOUCH ULTRA strip [id number] Star t: 06-11-2022 DROPLET PEN NEED LES 29G X 12MM MISC [id number] Start: 06-30-2022 Clinical Notes 01-28-2020 to 07-02-2023 Telephone Encounter - Christine Valladares - 07/02/2023 9:14 AM EDTTelephone Encounter - Christine Valladares - 07/02/2023 9:14 AM EDTSVANESA Krause - 06/29/2023 11:00 AM ESTPatient Instructions Note Date & Type Note Facility 07-02-2023 Miscellaneous Notes Formattin g of this note is different from the original. 3/8 order received Scheduled [facility] at [facility] on 10/23/23 Mychart confirmation Sol GUTIERREZ PSG order & /6 Salome notes in Epic With TCO2 monitoring. Please obtain baseline in supine position. documented in this encounter [facility] 07-02-2023 Telephone encount er Note 3/8 order received Scheduled PSG at [facility] on 10/23/23 Mychart confirmation [place] [employer] PSG order & 3/6 Salome notes in Epic With TCO2 monitoring. Please obtain baseline in supine position. [facility] 06-29-2023 History of Presen t illness [...] you wake up? 6-8 AM Number of lsoqkg-af-lla-night awakenings per night? 3-4 Cause of awakenings [...] Asthma 2016 Back pain Bipolar 1 disorder (CMS-HCC) Cholecystitis gallbladder removed-2009 Chronic headache 2011 Depression [...] to stop the activity if sleepiness occurs (band shover at the next safe opportunity if driving). [...] sleep). CC: MD Lindsey CAMEJO [facility] Office: [phone] 11:18 AM on 06/29/2023 This note is dictated with the use of M*Modal.Please note that this dictation was completed with computer voice recognition software. Quite often unanticipated grammatical, syntax, homophones, and other interpretive errors are inadvertently transcribed by the computer software. Please disregard these errors. Please excuse any errors that have escaped final proofreading. VANESA Mendez 06/29/23 1125 documented in this encounter [facility] 06-29-2023 Instructions VANESA Mendez - 06/29/2023 11:00 AM EST If you re looking for general health and wellness resources, please visit [email or web address]. documented in this encounter [facility] 06-29-2023 Evaluation note Diagnosis MOLINA (obstructive sleep apnea)- Primary Obstructive sleep apnea (adult) (pediatric) Morning headache Memory loss Fatigue, unspecified type Snoring Other dyspnea and respiratory abnormality documented in this encounter [facility]2024 Miscellaneous Notes* Telephone Encounter - Ernestina Simpson - 05/29/2023 10:23 AM EST Pt called to schedule a sleep study or appointment with collin Dawn advised we have nothing as of now and either order is in her chart to schedule with gave her the number to sleep medicine in [place] [facility] Note* Telephone Encounter - Ernestina Simpson - 05/29/2023 10:23 AM EST Pt called to schedule a sleep study or appointment with collin Dawn advised we have nothing as of now and either order is in her chart to schedule with gave her the number to sleep medicine in [place] [facility]01-11-2024 History of Present illness Narrative* Katerin Haynes, VANESA - 05/03/2023 1:15 PM EST Images from the original note were not included. [id number] [facility] [address] SUBJECTIVE: Patient ID: Yani Stevens is a [...] 05/03/23 1330 [facility] Evaluation note* Encounter Date Diagnosis Assessment [...] not specified, unspecified location (ICD-10 - J01.90) [facility] Other 04-01-2023 History of Present illness Narrative* Diann Diaz DO - 07/22/2022 12:40 AM EDT POST [...] patient Attending Physician: Dr. Fish Estrada MD Pressing Department Supervisor Resident 07/22/2022, 12:40 AM Attending Physician Statement [...] patient Attending Physician: Dr. Betina Bush, DO Pressing Department Supervisor Resident 07/21/2022, 3:02 AM Attending Physician Statement [...] MD 07/21/2022 10:00 AM documented in this encounterBON Curis Phone: 1(318) 652-814703-30-2023 Evaluation note* Diagnosis RLTCS w/ IUD 07/20/22 [...] Chronic hypertension affecting documented in this encounter [facility] Work Phone: 1(665) 741-964603-28-2023 Evaluation note* Encounter Date Diagnosis Assessment Notes [...] other viral communicable diseases (ICD-10 - Z20.828) [facility] Other 11-29-2022 Evaluation note* Encounter Date Diagnosis [...] off of work. We will apply for [facility] approval for therapy. [facility] Other 06-21-2021 NoteEducation Materials Obstetrics and Gynecology [...] Follow these instructions at home: ? Take naik-dms-jssbzhi and prescription medicines only as told by [...] menstrual period is much (more content not included)...[facility] 01-28-2020 NoteOphthalmology Basics of Medication Management [...] caregiver questions about your prescriptions and any nkvf-axz-zzeghjv medications, vitamins, herbal or dietary supplements that [...] at your local pharmacy), written chart from [facility], notebook, binder, or your own calendar to [...] or pharm (more content not included)...[facility] Chief complaint+Reason for visit Narrative* Chief Complaint Congestion, fever Reason for Visit Contact with and (grimm spected) exposure to covid-19 [facility] Work Phone: Evaluation note* [...] condition or complication documented in this encounter [facility] Work Phone: evaluation noteNo assessment information available [facility] Work Phone: Evaluation note* Diagnosis Acute non-recurrent maxillary sinusitis- Primary [facility] Diagnosis Low back pain, unspecified back pain laterality, unspecified chronicity, unspecified whether sciatica present- Primary [facility] this encounter [facility]* Diagnosis Onset Date Resolution Status Contact with and (suspected) exposure to covid-19 noneactive [facility] Work Phone: History general Narrative - Reported* Type Description Date Medical History Depression Medical History Bipolar disorder Medical History Hypertension Medical History Hypothyroidism Surgical History cholecystectomy Surgical History wisdom teeth extract Surgical History lipoma removed Surgical History left knee scope x 2 Surgical History hemorrhoidectomy Hospitalization History see above surgical histo ry [facility] Other Hospital Discharge instructions* Attachments The following attachments cannot be sent through Care Everywhere. * Section: Post-op (Gabonese) * Preeclampsia: : General Info (Gabonese) * Depression: (Gabonese) documented in this encounterNEWTON[facility]ITALSportlyzer[facility] Work Phone: Instructions* Attachments The following attachments cannot be sent through Care Everywhere. * Sinusitis in adults (Gabonese) documented in this encounterProHolzer Health SystemLumus SystemInstructionsNot on file documented in this encounterProHolzer Health SystemLumus SystemInstructionsNot on file documented in this encounterProDailyPath Health SystemInstructionsNot on file documented in this encounterMercy Health [facility] SystemInstructionsNot on file documented in this encounterMercy Health [facility] The [facility] System Summary Purpose Family History No Family [...] By Ismael landis Referred To Contact Diagnoses MOLINA (obstructive sleep apnea) Procedures PSG Diagnostic Lindsey Mcmahon, PADDER CUSHION-CLERK CARRIER [address] [facility], [address] [address] Referral ID Status Reason Start Date Expiration Date V isits Requested Visits Authorized [id number] Pending Review 06/29/2023 06/28/2024 1 1 Additional Source Comments INFORMATION SOURCE (unrecogn ized section and content) DATE CREATED AUTHOR 02/27/2018 [facility] DATE CREATED AUTHOR AUTHOR'S ORGANIZ ATION 09/15/2020 [facility] DATE CREATED AUTHOR AUTHOR'S ORGANIZ ATION 10/17/2020 [facility] DATE CREATED AUTHOR AUTHOR'S ORGANIZ ATION 08/25/2022 [facility] DATE CREATED AUTHOR AUTHOR'S ORGANIZ ATION 01/01/2023 [facility] DATE CREATED AUTHOR AUTHOR'S ORGANIZ ATION 06/30/2023 [facility] DATE CREATED AUTHOR AUTHOR'S ORGANIZ ATION 12/31/2023 [facility] DATE CREATED AUTHOR AUTHOR'S ORGANIZ ATION 01/05/2024 [facility] DATE CREATED AUTHOR AUTHOR'S ORGANIZ ATION 01/17/2024 [facility] EPIC REASON FOR VISIT (unrecogniz ed section and content) Specialty Diagnoses / Procedures Referred By Ismael landis Referred To Contact Diagnoses 36 weeks gestation of Hitesh Holloway DO [address] [place] [address] [facility] [address] [place] [address] Referral ID Status Reason Start Date Expiration Date Visits Re quested Visits Authorized [id number] 1 1 Reason Comments Nasal Congestion Dizziness Reason Onset Date Comments Sleep Lab 05/29/2023 Reason Comments Med Refill Reason Comments New Patient Sleep ConsultNo prio r sleep studyNot on PAP Specialty Diagnoses / Procedures Referred By Ismael landis Referred To Contact Pulmonary Medicine Diagnoses Morning headache Memory loss Razia Muller, PADDER CUSHION-CLERK CARRIER [address] [place] [address] [facility] [address] [address] Referral ID Status Reason Start Date Expiration Date Visits Requested Visits Authorized [id number] Pending Review Specialty Services Required 06/12/2023 06/11/2024 [...] Push: Max 10 mg over 1-2 minutes. 183 (Given - Provid er: Ellen Dunn RN) [...] Provider: Jennifer Porras)0831 (Given - Provider: Lakesha Loera, VIKTORIA)1000 (Due)1600 (Due)2200 (Due) acetaminophen (TYLENOL) tablet 975 [...] (Given - Provider: Stephany Paige APRN - DAG COATER) citalopram (CELEXA) tablet 20 mg 20 mg, [...] Loera RN)2220 (Given - Provider: Jennifer Porras) 0828 (Given [...] Dasha Rhodes, VIKTORIA)1820 (Stopped - Provider: Dasha Rhodes, VIKTORIA) ibuprofen [...] at 2200, Last dose on 07/22/22 at 1400, Antimicrobial Indications: Surgical Prophylaxis, 0005 [...] at 2000, 0900 (Not Given - Provider: Lakesah Loera RN - Reason: Order parameters not [...] Infusing) 1125 (Given - Provider: Lakesha Loera RN)222 (Given - Provider: Jennifer Porras) 0836 (Not Given - Provider: Lakesha Loera RN - Reason: Loss of IV access)2100 (Due) tranexamic acid-NaCl IVPB premix 1,000 mg 1,000 mg, IntraVENous, at 400 mL/hr, Administer over 15 Minutes, ONCE, On [place] 07/20/22 at 1530, For 1 dose 1956 (Canceled Entry - Provider: Dasha Rhodes, VIKTORIA - Comment: given in OR by anesthesia) Continuous Medication Order 07/20/2022 07/21/2022 07/22/2022 0.9 % sodium chloride infusion (CANCELED) IntraVENous, at 125 mL/hr, CONTINUOUS, Starting on [place] 07/20/22 at 1545, Labor and Delivery (Signed and Held) 1557 (New Bag - Provider: Anel Easley RN)1731 (NoRateChange - Provider: Stephany Paige APRN - DAG COATER)182 (Paused - Provider: Agata Pollard RN - Comment: Switch to gravity)183 (New Bag - Provider: Agata Pollard, RN)192 (New Bag - Provider: Agata Pollard RN) [...] Pollard, VIKTORIA)1839 (Rate/Dose Change - Provider: Agata Pollard RN) [...] December 17, 2023 End: December 17, 2023 Weatherstrip Machine Operator Relationship Specialty Start Date End Date Chas Balderas MD [address] [place] [address] PCP - General Family Medicine 06/29/23 Weatherstrip Machine Operator Relationship Specialty Start Date End Date Katerin Haynes APRN-VANIA [address] [place] [address] PCP - General Family Medicine 11/23/22 Team Status: Active Member Role Status Dates Aline Villalobos MD Primary Care Provider Active Team Status: Inactive Member Role Status Dates Aline Villalobos MD Primary Care Provider Active Razia Muller , PADDER CUSHION-RECORD LIBRARIAN-C Attending Provider Active Goals (unrecognized section and [...] BE BASED ON THE PRIMARY CLINICAL RECORDS. [employer] provides no warranty or guarantee of the accuracy or completeness of information in this document.
[2024-01-17 08:14] VITALS: BP 133/73; PULSE 96
== END 2024-01-17 09:10 | disposition home or self-care (01) ==
LOC: FBCO 06:56 → FBC 08:03
PROVIDERS: PCP Family Medicine; Visit Provider Obstetrics & Gynecology
DX: O99.283 Endocrine, nutritional and metabolic diseases complicating pregnancy, third trimester (principal); Z3A.34 34 weeks gestation of pregnancy
CPT/HCPCS: 59025

== ENCOUNTER 2024-01-21 07:13 | Outpatient (OUT) | payer BC, MEDICAID, SELFPAY ==
--- NOTE | 2024-01-21 | US_ITS ---
[address] [address] Patient Name: YANI STEVENS MRN: [facility]:[id number] date: 1990 Sex: F Assigned Patient Location: [facility] Current Patient Location: Accession/Order Number: [id number] Exam Date: 01/21/2024 07:35 Report Date: 01/21/2024 08:51 At the request of: NOAH PETERSON Procedure: US OB umbilical artery EXAMINATION: US OB umbilical artery HISTORY: Gestational diabetes mellitus O24.419 COMPARISON: Ultrasound OB umbilical artery 01/14/2024 TECHNIQUE: Duplex Doppler evaluation of the umbilical arteries. FINDINGS: HEART RATE: 130 bpm UMBILICAL ARTERIES: 1 GESTATIONAL AGE: 34 weeks 6 days WAVEFORM: Normal upstroke. No notching. Forward flow in diastole. PEAK SYSTOLIC VELOCITY: 103 cm/s END DIASTOLIC VELOCITY: 43 cm/s SYST/DIAST RATIO (S:D): 2.4 RESISTIVE INDEX: 0.6 US/US OB umbilical artery IMPRESSION: 1. Class 0 = Normal umbilical artery blood velocity Electronically authenticated by: GERARD GONZALEZ Date: 01/21/2024 08:51
--- NOTE | 2024-01-21 | US_ITS ---
[address] [address] Patient Name: YANI STEVENS MRN: [facility]:[id number] date: 1990 Sex: F Assigned Patient Location: [facility] Current Patient Location: Accession/Order Number: [id number] Exam Date: 01/21/2024 07:35 Report Date: 01/21/2024 08:49 At the request of: NOAH PETERSON Procedure: US OB BPP w non-stress EXAMINATION: US OB BPP w non-stress HISTORY:Gestational Diabetes Mellitus O24.419 COMPARISON: Ultrasound OB biophysical 01/14/2024 TECHNIQUE: Ultrasound biophysical profile was performed in the radiology department. BREATHING MOVEMENTS: 2 GROSS BODY MOVEMENTS: 2 TONE: 2 QUALITATIVE AMNIOTIC FLUID VOLUME: 2 PRESENTATION: Cephalic HEART RATE: 130 bpm AMNIOTIC FLUID VOLUME: 12.3 cm; normal range GESTATIONAL AGE: 34 weeks 6 days US/US OB BPP w non-stress IMPRESSION: Total biophysical profile score: 8 Electronically authenticated by: GERARD GONZALEZ Date: 01/21/2024 08:49
--- OUTSIDE RECORDS SUMMARY | 2024-01-21 07:16 | XMS_ITS | CCD ---
Author Organization [facility] Care Team Providers Care Director Biology Name Role Phone PHYSICIAN, DEFAULT Unavailable Unavailable [...] KARASIK ., DR DOUGHERTY Consulting Unavailabl e JANNIEEREWendi, DR CHAS Norman Primary Care Unavailable NICHOLAS, [...] NADERER, DR CHAS Norman Primary Care Unavailable GRETNA, DR ALINE Henriquez Consulting Unavailable NICHOLAS, DR ZAMORA Consulting Unavailable KARASIK ., DR DOUGHERTY Admitting Unavailabl e KARASIK ., DR DOUGHERTY Consulting Unavailabl e KARASIK ., DR DOUGHERTY Attending Unavailabl e NADERER, DR CHAS Norman Primary Care Unavailable KARASIK ., DR DOUGHERTY Attending Unavailabl e KARASIK ., DR DOUGHERTY Admitting Unavailabl e KARASIK ., DR DOUGHERTY Consulting Unavailabl e FAWMEGAN, [facility] Primary Care Unavailable NICHOLAS, DR ZAMORA Admitting [...] VILLAR Consulting Unavailable JIAN, DAV Attending Unavailable DEREK, [facility] Primary Care Unavailable DAV VILLAR Admitting Unavailable [...] Unavailable MD Aline Villalobos Primary Care Provider [phone] TONJA Muller Attending Provider Aline Villalobos Primary Care Unavailable Razia Muller E Admitting Unavailable Razia Muller Attending Unavailable Aline Villalobos Primary Care Unavailable Renzo, Razia E Admitting Unavailable Renzo, Razia E Attending Unavailable Jovita Murcia Unavailable [place] LEWIS-SECRETARY TO THE VICE PRESIDENT, Katerin Primary Care [facility]ide r [facility], [facility] Primary Care Provide r Sherrie TENORIO, Chas Primary Care Provider [phone] LINDSEY MCMAHON Attending Unavailable MULLER, RAZIA Referring Unavailable NADEREWendi, CHAS Primary Care Unavailable SCHLUCRECIA, KATERIN Attending Unavailable SCHLACHTCRISSY, KATERIN Referring Unavailable SCHWICHT, KATERIN Primary Care Unavailable PERNI, MATEO C Referring Unavailable NADERER, [facility] Primary Care Unavailabl e PERNI, MATEO C Referring Unavailable NADERER, [facility] Primary Care Unavailabl e PERNI, MATEO C Referring Unavailable NADERER, [facility] Primary Care Unavailbrinda e CLAUDIA VILLAR Admitting Unavailable CLAUDIA VILLAR Attending Unavailable NADERER, [facility] Primary Care UnavailCHARMAINE Torres Attending Unavailable NICHOLAS, NOAH Attending Unavailable NADEREWendi, CHAS Attending Unavailable NICHOLAS, NOAH Attending Unavailable NADERER, CHAS Attending Unavailable NICHOLAS, NOAH Attending Unavailable NICHOLAS, NOAH Attending Unavailable NICHOLAS, NOAH Attending Unavailable MARKIA, CHARMAINE Attending Unavailable NICHOLAS, NOAH Attending Unavailable NICHOLAS, NOAH Attending Unavailable NICHOLAS, NOAH Attending Unavailable NICHOLAS, NOAH Attending Unavailable [facility] Primary Care Unavailable BONITA COFFMAN Attending Unavailable [facility]endi, CHAS Primary Care Unavailable MANUEL GODINEZ Attending Unavailable HERBERT, MANUEL Attending Unavailable MANUEL GODINEZ Referring Unavailable [facility], CHAS Primary Care Unavailable [facility], CHAS Primary Care Unavailable KANIKA VIDAL Attending Unavailable CLAUDIA DUFF Admitting Unavailable CLAUDIA DUFF Attending Unavailable CHAS BALDERAS Primary Care Unavailable SCHWICHTCRISSY, KATERIN Primary Care Unavailable CLAUDIA SOLARES Attending Unavailable LINA HUGHES Attending Unavailable LINA HUGHES Referring Unavailable SCHLACHTER, KATERIN Primary Care Unavailable MULLER, RAZIA Referring Unavailable SCHLACHT, KATERIN Primary Care Unavailable Allergies Allergy Classification Reported Allergen(s) Allergy Type Date of Onset Reaction(s) Facility (20 sources) Amoxicillin; Translations: [Amoxicillin] Drug Allergy 11-08-18 96 Anaphylaxis, shortness of breath [facility] (18 sources) Morphine; Translations: [MORPHINE] Drug Allergy 09-18-19 18 hivsushma, Rash [facility] Other (16 sources) Codeine; Translations: [CODEINE] Drug Allergy 06-06-19 23 [facility] [employer] [facility] [employer] [facility] (13 sources) Penicillins; Translations: [PENICILLINS] Propensity to adverse reactions to drug 02-22-20 16 Anaphylaxis, Shortness Of Breath [facility] [employer] [facility] Work Phone: (1 source) Codeine Drug Allergy 07-30-19 22 [facility] (1 source) Morphine Drug Allergy [facility] (1 source) Codeine Drug Allergy 12-23-19 23 [facility] (1 source) Morphine Drug Allergy 05-25-19 21 [facility] (1 source) Pseudoephedrine Drug Allergy 02-22-20 22 Unknown [facility] Other (1 source) Allergies Reconciled Propensity to adverse reactions 02-28-20 Unknown [facility] Other (1 source) Substance with penicillin structure and antibacterial mechanism of action (substance) Drug allergy 02-28-20 22 Unknown [facility] Other (1 source) Morphine Sulfate (Concentrate) *ANALGESICS - OPIOI Propensity to adverse reactions 02-28-20 22 Unknown [facility] Other (9 sources) Doxycycline; Translations: [DOXYCYCLINE] Drug Allergy 02-08-20 23 [employer] (1 source) 12 Hour Decongestant Allergy to substance 12-17-19 24 Unknown Reaction [facility] Medications Current Medications Medication Drug Class(es) Dates [...] as needed Orally every 6 hrs Active [id number] 200 actuat albuterol 0.09 mg/actuat metered dose [...] 06-20-2022 PROFE 391.3 (180 Fe) MG CAPS [id number] Acid (1 source) Start: 12-17-2023 take 1 tablet by mouth once daily [id number]-Rnqgy Acid Active 1 TAB PO Daily December [...] 10 mg, Rectal, DAILY PRN, Starting on [place] 07/20/22 at 1933, Until Discontinued, Constipation, Budesonide-Formotero [...] Orally once a d ay Active levonorgestrel 0.916337 mg/hr intrauterine system (3 sources) Progestin, Progestin-containing [...] EVERY 6 HOURS PRN, Starting on [place] 3/30/23 at 1933, Until Discontinued, Nausea, Start: 11-16-2017 take 1 tablet by ken th every eight hours as needed for nausea ondansetron (ZOFRAN) 4 MG tablet Take 1 tablet by mouth every 8 hours as needed for Nausea 20 tablet 0 11/16/2017 Active polyethylene glycol 3350 43033 mg powder for oral solution (3 sources) [...] Oral, EVERY 6 HOURS PRN, Starting on [place] 07/20/22 at 1933, Until Discontinued, Cramping, Flatulence, 5 ml sodium chloride 9 mg/ml injection (5 sources) Start: 07-20-2022 take 1 dose intravenously twice daily 5-40 mL, IntraVENous, EVERY 12 HOURS SCHEDULED (2 times per day), First dose on Sun07/20/22 at 2100, Until Discontinued For Line Patency: [...] interruptions/ long duration, Starting on Sun07/20/22 at 1933 For piggyback infusion, administer at [...] IntraVENous, at 125 mL/hr, CONTINUOUS, Starting on Sun07/20/22 at 1545, Labor and Delivery (Signed and [...] Problem Date Documented Date Episodic/Chronic Abdominal pain (7 sources) Right upper quadrant pain; Translations: [Right [...] insulin controlled] Onset: 03-15-2022 Episodic Essential hypertension (2 sources) Essential hypertension; Translations: [Essential (primary) hypertension] Onset: 01-15-2024 Chronic Genitourinary symptoms and ill-defined conditions (1 source) Dysuria; Translations: [Dysuria] Episodic Headache; including migraine (2 sources) Chronic migraine without aura, non-refractory; Translations: [Chronic migraine without aura, not intractable, without status migrainosus] Onset: 06-14-2023 Chronic Headache; including migraine (3 sources) Morning headache; Translations: [Morning headache] Onset: 01-15-2024 06-29-2023 Episodic Headache; including migraine (2 sources) Headache; [...] Onset: 05-26-2022 Episodic Other aftercare (1 source) [facility] (current) 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 Comment on above: Performed By: #### C JASON LÓPEZ, 3084-, 253-0 #### [facility] ([id number]) [address] [place] [address] 30753 Hematocrit (Bld) [Volume fraction] 33.1 % Low 35-[address] [facility] Comment on above: Performed By: #### C JASON LÓPEZ, 308-, 2532-0 #### [facility] ([id number]) [address] [place] [address] 43599 Hemoglobin (Bld) [Mass/Vol] 11.6 g/dL Low 11.7-15.[address] [facility] Comment on above: Performed By: #### C MARIBEL, CMP, 4-1, 2532-0 #### [facility] ([id number]) [address] [place] [address] 28984 MCH (RBC) [Entitic mass] 29.3 pg Normal 27-[address] [facility] Comment on above: Performed By: #### Kaushik LÓPEZ CMP, 4-1, 2532-0 #### [facility] ([id number]) [address] [place] [address] 17249 MCHC (RBC) [Mass/Vol] 35.1 g/dL Normal 32-36 [facility] Comment on above: Performed By: #### Kaushik LÓPEZ CMP, 4-, 2532-0 #### [facility] ([id number]) [address] [place] [address] 73784 MCV (RBC) [Entitic vol] 83 fL Normal 80-[address] [facility] Comment on above: Performed By: #### Kaushki LÓPEZ CMP, 3083-, 2532-0 #### [facility] ([id number]) [address] [place] [address] 92601 Platelet mean volume (Bld) [Entitic vol] 8.6 fL Normal 7-[address] [facility] Comment on above: Performed By: #### Kaushik LÓPEZ CMP, 3083-, 2531-0 #### [facility] ([id number]) [address] [place] [address] 94438 Platelets (Bld) [#/Vol] 190 10*3/uL Normal 150-[address] [facility] Comment on above: Performed By: #### Kaushik BC, CMP, 4-1, 2532-0 #### [facility] ([id number]) [address] [place] [address] 16374 RBC COUNT 3.97 X10E12/L Normal 3.80-5.[address] [facility] Comment on above: Performed By: #### C BC, CMP, 3084-1, 2532-0 #### [facility] ([id number]) [address] [place] [address] 24911 WBC (Bld) [#/Vol] 10.0 10*3/uL Normal 4.0-11.0 [facility] Comment on above: Performed By: #### C BC, CMP, 3084-1, 2532-0 #### [facility] ([id number]) [address] [place] [address] 66909 COMPREHENSIVE METABOLIC PANE Jaylan 01-15-2024 Albumin [Mass/Vol] 2.9 g/dL Low 3.2-5.3 [facility] Comment on above: Performed By: #### Kaushik BC, CMP, 3084-1, 2532-0 #### [facility] ([id number]) [address] [place] [address] 17230 ALP [Catalytic activity/Vol] 99 U/L Normal 39-[address] [facility] Comment on above: Performed By: #### C BC, CMP, 3084-1, 2532-0 #### [facility] ([id number]) [address] [place] [address] 78661 ALT [Catalytic activity/Vol] 18 U/L Normal 0-[address] [facility] Comment on above: Performed By: #### Kaushik BC, CMP, 3084-1, 2532-0 #### [facility] ([id number]) [address] [place] [address] 18815 Anion gap [Moles/Vol] 8 mmol/L Normal 5-15 [facility] Comment on above: Performed By: #### C BC, CMP, 3084-1, 2532-0 #### [facility] ([id number]) [address] [place] [address] 58367 AST [Catalytic activity/Vol] 17 U/L Normal 0-[address] [facility] Comment on above: Performed By: #### Kaushik LÓPEZ, CMP, 3084-1, 2532-0 #### [facility] ([id number]) [address] [place] [address] 89455 Bilirubin [Mass/Vol] 0.2 mg/dL Low 0.3-1.2 [facility] Comment on above: Performed By: #### Kaushik LÓPEZ, CMP, 3083-, 2532-0 #### [facility] ([id number]) [address] [place] [address] 95329 Calcium [Mass/Vol] 8.7 mg/dL Normal 8.5-10.5 [facility] Comment on above: Performed By: #### Kaushik LÓPEZ CMP, 3083-, 2532-0 #### [facility] ([id number]) [address] [place] [address] 07629 Chloride [Moles/Vol] 107 mmol/L Normal 98-109 [facility] Comment on above: Performed By: #### Kaushik LÓPEZ CMP, 3083-, 2532-0 #### [facility] ([id number]) [address] [place] [address] 97067 CO2 [Moles/Vol] 23 mmol/L Normal 22-[address] [facility] Comment on above: Performed By: #### Kaushik LÓPEZ CMP, 3083-, 2532-0 #### [facility] ([id number]) [address] [place] [address] 60303 Creatinine [Mass/Vol] 0.52 mg/dL Normal 0.40-1.00 [facility] Comment on above: Result Comment: METH OD TRACEABLE TO IDMS STANDARD Performed By: #### Kaushik LÓPEZ, CMP, 3084-1, 2532-0 #### [facility] ([id number]) [address] [place] [address] 24633 eGFR (CKD-EPI) NON-RACE DEPENDENT >90 Normal >[address] [facility] Comment on above: Result Comment: Reported eGFR is based on the CKD-EPI 2020 equation that does not use a race coefficient. Performed By: #### Kaushik LÓPEZ CMP, 3084-1, 2532-0 #### [facility] ([id number]) [address] [place] [address] 24911 Glucose [Mass/Vol] 106 mg/dL High 65-99 [facility] Comment on above: Performed By: #### Kaushik LÓPEZ CMP, 4-1, 2532-0 #### [facility] ([id number]) [address] [place] [address] 22099 Potassium [Moles/Vol] 3.7 mmol/L Normal 3.5-5.0 [facility] Comment on above: Performed By: #### Kaushik LÓPEZ CMP, 3083-, 2531-0 #### [facility] ([id number]) [address] [place] [address] 33123 Protein [Mass/Vol] 6.4 g/dL Normal 6.0-8.0 [facility] Comment on above: Performed By: #### Kaushik LÓPEZ CMP, 3084-, 2532-0 #### [facility] ([id number]) [address] [place] [address] 22048 Sodium [Moles/Vol] 138 mmol/L Normal 134-146 [facility] Comment on above: Performed By: #### Kaushik LÓPEZ CMP, 3083-1, 253-0 #### [facility] ([id number]) [address] [place] [address] 63778 Urea nitrogen [Mass/Vol] 9 mg/dL Normal 5-[address] [facility] Comment on above: Performed By: #### Kaushik LÓPEZ CMP, 3084-1, 2532-0 #### [facility] ([id number]) [address] [place] [address] 84357 LDH [Catalytic activity/Vol] on 01-15-2024 LDH 143 U/L Normal 100-[address] [facility] Comment on above: Performed By: #### B PHYLLIS, CBCA #### [facility] ([id number]) [address] [place] [address] 12843 URIC ACIDon 01-15-2024 Urate [Mass/Vol] 4.5 mg/dL Normal 2.6-7.2 [facility] Comment on above: Performed By: #### C BC, CMP, 3084-1, 2532-0 #### [facility] ([id number]) [address] [place] [address] 22736 URINALYSISon 01-15-2024 Bilirubin Ql (U) Negative Normal NEG [facility] Comment on above: Performed By: #### Curtis FERGUSON, CBCA #### [facility] ([id number]) [address] [place] [address] [place] [address] BLOOD/HGB Trace Abnormal NEG [facility] Comment on above: Performed By: #### Curtis FERGUSON, CBCA #### [facility] ([id number]) [address] [place] [address] 53492 Color (U) YELLOW Normal YELLOW [facility] Comment on above: Performed By: #### Curtis FERGUSON, CBCA #### [facility] ([id number]) [address] [place] [address] 81871 Glucose Ql (U) Negative Normal NEG [facility] Comment on above: Performed By: #### Curtis FERGUSON, CBCA #### [facility] ([id number]) [address] [place] [address], [place] [address] Ketones Ql (U) Negative Normal NEG [facility] Comment on above: Performed By: #### B PHYLLIS, CBCA #### [facility] ([id number]) [address] [place] [address] Leukocyte esterase Test strip Ql (U) Negative Normal NEG [facility] Comment on above: Performed By: #### B PHYLLIS, CBCA #### [facility] ([id number]) [address] [place] [address] 61141 Nitrite Ql (U) Negative Normal NEG [facility] Comment on above: Performed By: #### B PHYLLIS, CBCA #### [facility] ([id number]) [address] [place] [address] 20218 pH (U) 7.0 [pH] Normal 5.0-8.[address] [facility] Comment on above: Performed By: #### B PHYLLIS, CBCA #### [facility] ([id number]) [address] [place] [address] 63772 Protein Ql (U) Negative Normal NEG [facility] Comment on above: Performed By: #### B PHYLLIS, CBCA #### [facility] ([id number]) [address] [place] [address] 29610 R.B.CELLS 0 /hpf Normal 0-[address] [facility] Comment on above: Performed By: #### B PHYLLIS, CBCA #### [facility] ([id number]) [address] [place] [address] 02890 Specific gravity (U) [Rel density] 1.015 Normal 1.003-1.[address] [facility] Comment on above: Performed By: #### B PHYLLIS, CBCA #### [facility] ([id number]) [address] [place] [address] 03095 SQUAMOUS EPITHELIUM 2 to 5 Normal 0-5 [facility] Comment on above: Performed By: #### B PHYLLIS, CBCA #### [facility] ([id number]) [address] [place] [address] 41016 TURBIDITY CLEAR Normal CLEAR [facility] Comment on above: Performed By: #### B PHYLLIS, CBCA #### [facility] ([id number]) [address] [place] [address] 15928 Urobilinogen Qn (U) 0.2 {Manolo'U}/dL Normal <1.[address] [facility] Comment on above: Performed By: #### B PHYLLIS, CBCA #### [facility] ([id number]) [address] [place] [address] 85202 W.B.CELLS 2 to 5 Normal 0-[address] [facility] Comment on above: Performed By: #### B PHYLLIS, CBCA #### [facility] ([id number]) [address] [place] [address] 19418 Chlamydia/GC,DNA Ampon 12-31 Chlamydia Probe Negative Normal NEG [facility] Comment on above: Result Comment: CHLA MYDIA [...] PROSAC, HOCYS, GLYHGB, TSH, LUPPRO, FT4 #### [facility] [address] [place] [address] Windows Consultant: Gideon Bullock MD #### AAFPM #### [address] [address] Windows Consultant: Gideon Bullock MD [address] [address] Windows Consultant: Fantasma Wood MD #### AF5MUT, AMTHFR, APTMUT #### [facility] [address] [place] [address] Windows Consultant: Fantasma Wood MD Gonorrhea Probe Negative Normal NEG [facility] Comment on above: Result Comment: NEIS SERIA [...] PROSAC, HOCYS, GLYHGB, TSH, LUPPRO, FT4 #### [address] [address] Windows Consultant: Gideon Bullock MD #### AAFPM #### [address] [address] Windows Consultant: Gideon Bullock MD [facility] [address] [place] [address] Windows Consultant: Fantasma Wood MD #### AF5MUT, AMTHFR, APTMUT #### [facility] [address] [place] [address] Windows Consultant: Fantasma Wood MD CBC with Diffon 12-31-2023 Abs. Basophil 0.03 k/uL Normal 0.00-0.20 [facility] Comment on above: Performed By: #### U VIVIEN URTPRT #### [facility] [address] [place] [address] Windows Consultant: Gideon Bullock MD Abs.Imm.Granulocyte 0.04 k/uL Normal 0.00-0.30 [facility] Comment on above: Performed By: #### U AMIKaushik URTPRT #### [address] [address] Windows Consultant: Gideon Bullock MD Abs.Neutrophil (Seg) 5.25 k/uL Normal 1.50-8.10 [facility] Comment on above: Performed By: #### U AMIC, URTPRT #### [address] [address] Windows Consultant: Gideon Bullock MD Basophils/100 WBC (Bld) 0 % Normal 0-2 [facility] Comment on above: Performed By: #### U AMIC, URTPRT #### [address] [address] Windows Consultant: Gideon Bullock MD Eosinophils (Bld) [#/Vol] 0.18 10*3/uL Normal 0.00-0.44 [facility] Comment on above: Performed By: #### U AMIC, URTPRT #### [address] [address] Windows Consultant: Gideon Bullock MD Eosinophils/100 WBC (Bld) 2 % Normal 1-4 [facility] Comment on above: Performed By: #### U AMIC, URTPRT #### [address] [address] Windows Consultant: Gideon Bullock MD Erythrocyte distribution width (RBC) [Ratio] 13.1 % Normal 11.8-14.4 [facility] Comment on above: Performed By: #### U AMIC, URTPRT #### [address] [address] Windows Consultant: Gideon Bullock MD Hematocrit (Bld) [Volume fraction] 35.1 % Low 36.3-47.1 [facility] Comment on above: Performed By: #### U AMIC, URTPRT #### [facility] [address] [place] [address] Windows Consultant: Gideon Bullock MD Hemoglobin (Bld) [Mass/Vol] 11.9 g/dL Normal 11.9-15.1 [facility] Comment on above: Performed By: #### U AMIC, URTPRT #### [address] [address] Windows Consultant: Gideon Bullock MD Immature granulocytes/100 WBC (Bld) 1 % High 0 [facility] Comment on above: Performed By: #### U AMIC, URTPRT #### [address] [address] Windows Consultant: Gideon Bullock MD Lymphocytes (Bld) [#/Vol] 1.81 10*3/uL Normal 1.10-3.70 [facility] Comment on above: Performed By: #### U AMIC, URTPRT #### [address] [address] Windows Consultant: Gideon Bullock MD Lymphocytes/100 WBC (Bld) 23 % Low 24-43 [facility] Comment on above: Performed By: #### U AMIC, URTPRT #### [address] [address] Windows Consultant: Gideon Bullock MD MCH (RBC) [Entitic mass] 28.9 pg Normal 25.2-33.5 [facility] Comment on above: Performed By: #### U AMIC, URTPRT #### [place] [address] Windows Consultant: Gideon Bullock MD MCHC (RBC) [Mass/Vol] 33.9 g/dL Normal 28.4-34.8 [facility] Comment on above: Performed By: #### U AMIC, URTPRT #### [address] [address] Windows Consultant: Gideon Bullock MD MCV (RBC) [Entitic vol] 85.2 fL Normal 82.6-102.9 [facility] Comment on above: Performed By: #### U AMIC, URTPRT #### [address] [address] Windows Consultant: Gideon Bullock MD Monocytes (Bld) [#/Vol] 0.62 10*3/uL Normal 0.10-1.20 [facility] Comment on above: Performed By: #### U AMIC, URTPRT #### [address] [address] Windows Consultant: Gideon Bullock MD Monocytes/100 WBC (Bld) 8 % Normal 3-12 [facility] Comment on above: Performed By: #### U AMIC, URTPRT #### [address] [address] Windows Consultant: Gideon Bullock MD Neutrophil (Seg) 66 % High 36-65 [facility] Comment on above: Performed By: #### U AMIC, URTPRT #### [address] [address] Windows Consultant: Gideon Bullock MD NRBC Automated 0.0 per 100 WBC Normal 0.0 [facility] Comment on above: Performed By: #### U AMIC, URTPRT #### [address] [address] Windows Consultant: Gideon Bullock MD Platelet mean volume (Bld) [Entitic vol] 10.9 fL Normal 8.1-13.5 [facility] Comment on above: Performed By: #### U AMIC, URTPRT #### [address] [address] Windows Consultant: Gideon Bullock MD Platelets (Bld) [#/Vol] 175 10*3/uL Normal 138-453 [facility] Comment on above: Performed By: #### U AMIC, URTPRT #### [address] [address] Windows Consultant: Gideon Bullock MD RBC (Bld) [#/Vol] 4.12 10*6/uL Normal 3.95-5.11 [facility] Comment on above: Performed By: #### U AMIC, URTPRT #### [address] [address] Windows Consultant: Gideon Bullock MD WBC (Bld) [#/Vol] 7.9 10*3/uL Normal 3.5-11.3 [facility] Comment on above: Performed By: #### U AMIC, URTPRT #### [address] [address] Windows Consultant: Gideon Bullock MD Comp Metabolic Profon 2023 Albumin [Mass/Vol] 3.7 g/dL Normal 3.5-5.2 [facility] Comment on above: Performed By: #### U AMIC, URTPRT #### [address] [address] Windows Consultant: Gideon Bullock MD Albumin/Glob Ratio 1.0 Normal 1.0-2.5 [facility] [place] Comment on above: Performed By: #### U AMIC, URTPRT #### [address] [address] Windows Consultant: Gideon Bullock MD Alkaline Phos 105 U/L High 35-104 [facility] [place] Comment on above: Performed By: #### U AMIC, URTPRT #### [facility] [address] [place] [address] Windows Consultant: Gideon Bullock MD ALT [Catalytic activity/Vol] 18 U/L Normal 10-35 [facility] [place] Comment on above: Performed By: #### U AMIC, URTPRT #### [facility] [address] [place] [address] Windows Consultant: Gideon Bullock MD Anion gap [Moles/Vol] 10 mmol/L Normal 9-16 [facility] Comment on above: Performed By: #### U AMIC, URTPRT #### [address] [address] Windows Consultant: Gideon Bullock MD AST [Catalytic activity/Vol] 16 U/L Normal 10-35 [facility] [place] Comment on above: Performed By: #### U AMIC, URTPRT #### [facility] [address] [place] [address] Windows Consultant: Gideon Bullock MD Bilirubin [Mass/Vol] 0.2 mg/dL Normal 0.00-1.20 [facility] Comment on above: Performed By: #### U AMIC, URTPRT #### [facility] [address] [place] [address] Windows Consultant: Gideon Bullock MD Calcium [Mass/Vol] 9.0 mg/dL Normal 8.6-10.4 [facility] [place] Comment on above: Performed By: #### U AMIC, URTPRT #### [facility] [address] [place] [address] Windows Consultant: Gideon Bullock MD Chloride [Moles/Vol] 106 mmol/L Normal 98-107 [facility] Comment on above: Performed By: #### U AMIC, URTPRT #### [facility] [address] [place] [address] Windows Consultant: Gideon Bullock MD CO2 [Moles/Vol] 21 mmol/L Normal 20-31 [facility] [place] Comment on above: Performed By: #### U AMIC, URTPRT #### [facility] [address] [place] [address] Windows Consultant: Gideon Bullock MD Creatinine [Mass/Vol] 0.4 mg/dL Low 0.50-0.90 [facility] Comment on above: Performed By: #### U AMIC, URTPRT #### [address] [address] Windows Consultant: Gideon Bullock MD GFR/1.73 sq M.predicted among non-blacks MDRD (S/P/Bld) [Vol rate/Area] mL/min/{1.73_m2} Normal >60 [facility] [place] Comment on above: Result Comment: These results [...] #### U AMIC, URTPRT #### [facility] [address] [place] [address] Windows Consultant: Gideon Bullock MD Glucose [Mass/Vol] 74 mg/dL Normal 74-99 [facility] [place] Comment on above: Performed By: #### U AMIC, URTPRT #### [facility] [address] [place] [address] Windows Consultant: Gideon Bullock MD Potassium [Moles/Vol] 3.9 mmol/L Normal 3.7-5.3 [facility] Comment on above: Performed By: #### U AMIC, URTPRT #### [facility] [address] [place] [address] Windows Consultant: Gideon Bullock MD Protein [Mass/Vol] 6.9 g/dL Normal 6.6-8.7 [facility] [place] Comment on above: Performed By: #### U AMIC, URTPRT #### [facility] [address] [place] [address] Windows Consultant: Gideon Bullock MD Sodium [Moles/Vol] 137 mmol/L Normal 136-145 [facility] [place] Comment on above: Performed By: #### U AMIC, URTPRT #### [address] [address] Windows Consultant: Gideon Bullock MD Urea nitrogen [Mass/Vol] 9 mg/dL Normal 6-20 [facility] [place] Comment on above: Performed By: #### U AMIC, URTPRT #### [address] [address] Windows Consultant: Gideon Bullock MD Protein,Tot,[place] [facility] 2023 Creatinine [Mass/Vol] 123.0 mg/dL Normal 28.0-217.0 [facility] Comment on above: Performed By: #### U AMIC, URTPRT #### [address] [address] Windows Consultant: Gideon Bullock MD Tot Prot. Conc. 14 mg/dL Normal [facility] [place] Comment on above: Result Comment: No n ormal range established. Performed By: #### U AMIC, URTPRT #### [address] [address] Windows Consultant: Gideon Bullock MD TP/Cre Ratio 0.12 Normal [facility] [place] Comment on above: Performed By: #### U AMIC, URTPRT #### [address] [address] Windows Consultant: Gideon Bullock MD Urinalysis w/ Microon 2023 Bacteria None Normal NONE [facility] [place] Comment on above: Performed By: #### U AMIC, URTPRT #### [address] [address] Windows Consultant: Gideon Bullock MD Bilirubin, SemiQt,Ur Negative Normal NEG [facility] Comment on above: Performed By: #### U AMIC, URTPRT #### [address] [address] Windows Consultant: Gideon Bullock MD Blood, Urine MODERATE Abnormal NEG [facility] [place] Comment on above: Performed By: #### U AMIC, URTPRT #### [address] [address] Windows Consultant: Gideon Bullock MD Casts 0 TO 2 HYALINE Normal 0-8 [facility] [place] Comment on above: Result Comment: Refe rence range defined for non-centrifuged specimen. Performed By: #### U AMIC, URTPRT #### [address] [address] Windows Consultant: Gideon Bullock MD Clarity (U) Clear Normal CLEAR [facility] [place] Comment on above: Performed By: #### U AMIC, URTPRT #### [address] [address] Windows Consultant: Gideon Bullock MD Color (U) Yellow Normal YEL [facility] [place] Comment on above: Performed By: #### U AMIC, URTPRT #### [address] [address] Windows Consultant: Gideon Bullock MD Epithelial cells LM Ql (Urine sed) 5 TO 10 Normal 0-5 [facility] [place] Comment on above: Performed By: #### U AMIC, URTPRT #### [address] [address] Windows Consultant: Gideon Bullock MD Glucose Ql (U) Negative Normal NEG [facility] [place] Comment on above: Performed By: #### U AMIC, URTPRT #### [address] [address] Windows Consultant: Gideon Bullock MD Ketones Ql (U) Negative Normal NEG [facility] [place] Comment on above: Performed By: #### U AMIC, URTPRT #### [facility] [address] [place] [address] Windows Consultant: Gideon Bullock MD Leukocyte esterase Test strip Ql (U) TRACE Abnormal NEG [facility] [place] Comment on above: Performed By: #### U AMIC, URTPRT #### [facility] [address] [place] [address] Windows Consultant: Gideon Bullock MD Nitrite,Ur Negative Normal NEG [facility] [place] Comment on above: Performed By: #### U AMIC, URTPRT #### [address] [address] Windows Consultant: Gideon Bullock MD PH,Ur 6.0 Normal 5.0-8.0 [facility] [place] Comment on above: Performed By: #### U AMIC, URTPRT #### [facility] [address] [place] [address] Windows Consultant: Gideon Bullock MD Protein Ql (U) Negative Normal NEG [facility] [place] Comment on above: Performed By: #### U AMIC, URTPRT #### [facility] [address] [place] [address] Windows Consultant: Gideon Bullock MD Spec. [place],Ur 1.021 Normal 1.005-1.030 [facility] Comment on above: Performed By: #### U AMIC, URTPRT #### [facility] [address] [place] [address] Windows Consultant: Gideon Bullock MD Urine RBC's 20 TO 50 Normal 0-4 [facility] [place] Comment on above: Result Comment: Refe rence range defined for non-centrifuged specimen. Performed By: #### U AMIC, URTPRT #### [address] [address] Windows Consultant: Gideon Bullock MD Urine WBC's 0 TO 2 Normal 0-5 [facility] [place] Comment on above: Performed By: #### U AMIC, URTPRT #### [address] [address] Windows Consultant: Gideon Bullock MD Urobilinogen,Ur Normal Normal 0.0-1.0 [facility] [place] Comment on above: Performed By: #### U AMIC, URTPRT #### [address] [address] Windows Consultant: Gideon Bullock MD Vaginitis DNA Probeon 2023 Litzy Negative Normal NEG [facility] [place] Comment on above: Result Comment: for Litzy sp. Method of testing is a DNA probe intended for detection and identification of Litzy species, Gardnerella vaginalis, and Trichomonas vaginalis nucleic acid in vaginal fluid specimens from patients with symptoms of vaginitis/vaginosis. Performed By: #### U AMIC, URTPRT #### [address] [address] Windows Consultant: Gideon Bullock MD Gardnerella Positive Abnormal NEG [facility] [place] Comment on above: Result Comment: for Gardnerella vaginalis Performed By: #### U AMIC, URTPRT #### [address] [address] Windows Consultant: Gideon Bullock MD Trichomonas Negative Normal NEG [facility] [place] Comment on above: Result Comment: for Trichomonas Vaginalis Performed By: #### U AMIC, URTPRT #### [facility] [address] [place] [address] Windows Consultant: Gideon Bullock MD Source .VAGINAL SWAB Normal [facility] [place] Comment on above: Performed By: #### U AMIC, URTPRT #### [address] [address] Windows Consultant: Gideon Bullock MD Thyroid Stim. Horm.on 2023 Thyroid Stim. Horm. 1.48 uIU/mL Normal 0.27-4.20 [facility] Comment on above: Performed By: #### U AMIC, URTPRT #### [address] [address] Windows Consultant: Gideon Bullock MD Thyroxine, Freeon 12-06-2023 Thyroxine, Free 0.9 ng/dL Low 0.92-1.68 [facility] [place] Comment on above: Performed By: #### U AMIC, URTPRT #### [address] [address] Windows Consultant: Gideon Bullock MD Thyroid Stim. Horm.on 2023 Thyroid Stim. Horm. 1.66 uIU/mL Normal 0.27-4.20 [facility] Comment on above: Performed By: #### P ROCAC, AT3A, PROSAC, HOCYS, GLYHGB, TSH, LUPPRO, FT4 #### [address] [address] Windows Consultant: Gideon Bullock MD #### AAFPM #### [address] [address] Windows Consultant: Gideon Bullock MD [facility] [address] [place] [address] Windows Consultant: Fantasma Wood MD #### AF5MUT, AMTHFR, APTMUT #### [facility] [address] [place] [address] Windows Consultant: Fantasma Wood MD Thyroxine, Freeon 11-08-2023 Thyroxine, Free 0.9 ng/dL Low 0.92-1.68 [facility] [place] Comment on above: Performed By: #### P ROCAC, AT3A, PROSAC, HOCYS, GLYHGB, TSH, LUPPRO, FT4 #### [facility] [address] [place] [address] Windows Consultant: Gideon Bullock MD #### AAFPM #### [facility] [address] [place] [address] Windows Consultant: Gideon Bullock MD [facility] [address] [place] [address] Windows Consultant: Fantasma Wood MD #### AF5MUT, AMTHFR, APTMUT #### [facility] [address] [place], [place] [id number] Windows Consultant: Fantasma Wood MD PT Mutation [id number] 10-13-19 24 PT [id number] VARIANT Negative Normal [facility] [place] Comment on above: Result Comment: (NOT E) Indication for testing: Assess genetic risk for thrombosis. NEGATIVE: The Factor II, prothrombin [id number] mutation, was not detected. Other causes of [...] Dsouza, Ph.D. 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 PATHOGENIC VARIANT TESTED: F2 c.*97G>A (T34917A). CLINICAL SENSITIVITY FOR VENOUS THROMBOSIS: Approximately 10 percent. METHODOLOGY: Polymerase chain reaction and fluorescence monitoring. ANALYTICAL SENSITIVITY AND SPECIFICITY: 99 percent. LIMITATIONS: Diagnostic errors can occur due to rare sequence variations. F2 gene variants, other than c.*97G>A (X69582K), will not be detected. This test was developed and its performance characteristics determined by [facility]. It has not been cleared or approved by the [place] Food and Drug Administration. This test was performed in a CLIA certified laboratory and is intended for clinical purposes. Counseling and informed consent are recommended for genetic testing. Consent forms are available online. Performed By: [facility] [address] [place] [address] Bus Cleaner: Andrew Duran MD, PhD CLIA Number: [id number] Performed By: #### U AMISchool Yourself, URTPRT #### [place] [id number] Windows Consultant: Gideon Bullock MD PT PCR SPECIMEN Whole Blood Normal [facility] Comment on above: Performed By: #### U AMIC, URTPRT #### [facility] [address] [place] [address] [phone] Windows Consultant: Gideon Bullock MD Factor V Mutationon 10-12-19 24 F 5 SPECIMEN Whole Blood Normal [facility] [place] Comment on above: Performed By: #### U AMIC, URTPRT #### [facility] [address] [place] [address] [phone] Windows Consultant: Gideon Bullock MD FACTOR 5 MUTATION Negative Normal [facility] Comment on above: Result Comment: (NOT E) Indication for testing: Assess genetic risk for thrombosis. NEGATIVE: The factor V Leiden variant, c.1601G>A; p.Rym058Oqt, was not detected. This does not exclude [...] function in the F5 gene variant c.1601G>A (p.Zhg826Aqi). Legacy nomenclature: R506Q (1691G>A) CLINICAL SENSITIVITY: 20-50 percent of individuals with an isolated VTE have the FVL variant. METHODOLOGY: Polymerase chain reaction and fluorescence monitoring. ANALYTICAL SENSITIVITY AND SPECIFICITY: 99 percent. LIMITATIONS: Diagnostic errors can occur due to rare sequence variations. F5 gene mutations, other than p.Emd573Hxz, will not be detected. This test was developed and its performance characteristics determined by [facility]. It has not been cleared or approved by the [place] Food and Drug Administration. This test was performed in a CLIA certified laboratory and is intended for clinical purposes. Counseling and informed consent are recommended for genetic testing. Consent forms are available online. Performed By: [facility] [address] [place] [address] Bus Cleaner: Andrew Duran MD, PhD CLIA Number: [id number] Performed By: #### U AMIC, URTPRT #### [facility] [address] [place] [address] Windows Consultant: Gideon Bullock MD MTHFR Gene Mutationon 2023 MTHFR 1286 A>C Mut Heterozygous Normal [facility] Comment on above: Performed By: #### U AMIC, URTPRT #### [facility] [address] [place] [address] Windows Consultant: Gideon Bullock MD MTHFR 655C>T Mut Negative Normal [facility] Comment on above: Performed By: #### U AMIC, URTPRT #### [facility] [address] [place] [address] Windows Consultant: Gideon Bullock MD MTHFR Interpretation See Note Normal [facility] Comment on above: Result Comment: (NOT E) Indication for testing: Determine genetic contribution to hyperhomocysteinemia. 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 The [employer] Practice Guidelines indicate [...] a contributing factor to hyperhomocysteinemia. Variants Tested: c.665C>T(p.Hjj494Ghi) and c.1286A>C(p.Jmh964Fvj). (legacy names C677T and J7135Z, respectively). Clinical Sensitivity: Undefined; hyperhomocysteinemia is caused [...] developed and its performance characteristics determined by [facility]. It has not been cleared or approved by the [place] Food and Drug Administration. This test was performed in a CLIA certified laboratory and is intended for clinical purposes. Counseling and informed consent are recommended for genetic testing. Consent forms are available online. Performed By: [facility] [address] [place] [address] Bus Cleaner: Andrew Duran MD, PhD CLIA Number: [id number] Performed By: #### U AMIC, URTPRT #### [facility] [place], [place] [phone] Windows Consultant: Gideon Bullock MD MTHFR SPECIMEN Whole Blood Normal [facility] Comment on above: Performed By: #### U AMIC, URTPRT #### [facility] [place], [place] [id number] Windows Consultant: Gideon Bullock MD AFP, Maternalon 10-11-2023 Determined by Ultrasound Normal [facility] Comment on above: Performed By: #### U AMIC, URTPRT #### [facility] [place], [place] [phone] Windows Consultant: iGdeon Bullock MD Due Date SEE NOTE Normal [facility] [place] Comment on above: Result Comment: Resu lts for Estimated Due Date: 02 26 24 Performed By: #### U AMIC, URTPRT #### [address] [address] Windows Consultant: Gideon Bullock MD Family History No Normal [facility] Comment on above: Performed By: #### U AMIC, URTPRT #### [facility] [address] [place] [address] Windows Consultant: Gideon Bullock MD Gestat Age (exact) 20 wks, 0 days Normal [facility] Comment on above: Performed By: #### U AMIC, URTPRT #### [facility] [address] [place] [address] Windows Consultant: Gideon Bullock MD Ins Req Matern Diab Yes Normal [facility] Comment on above: Performed By: #### U AMIC, URTPRT #### [facility] [address] [place] [address] Windows Consultant: Gideon Bullock MD Interpretation Screen Neg Normal [facility] Comment on above: Result Comment: (NOT E) [...] developed and its performance characteristics determined by [facility]. It has not been cleared or approved by the US Food and Drug Administration. This test was performed in a CLIA certified laboratory and is intended for clinical purposes. Performed By: #### U AMIC, URTPRT #### [address] [address] Windows Consultant: Gideon Bullock MD [age] [facility] Comment on above: Performed By: #### U AMIC, URTPRT #### [facility] [address] [place] [address] Windows Consultant: Gideon Bullock MD Maternal Race Nonblack [facility] Comment on above: Performed By: #### U AMIC, URTPRT #### [facility] [address] [place] [address] Windows Consultant: Gideon Bullock MD Maternal Weight 298.0 lbs. [facility] Comment on above: Performed By: #### U AMIC, URTPRT #### [facility] [address] [place] [address] Windows Consultant: Gideon Bullock MD MoM for AFP 1.29 [facility] Comment on above: Performed By: #### U AMIC, URTPRT #### [facility] [address] [place] [address] Windows Consultant: Gideon Bullock MD Number of Fetuses [place] [facility] Comment on above: Performed By: #### U AMIC, URTPRT #### [facility] [address] [place] [address] Windows Consultant: Gideon Bullock MD Patient's AFP 39 ng/mL [facility] Comment on above: Performed By: #### U AMIC, URTPRT #### [facility] [address] [place] [address] Windows Consultant: Gideon Bullock MD Smoking No [facility] Comment on above: Performed By: #### U AMIC, URTPRT #### [facility] [address] [place] [address] Windows Consultant: Gideon Bullock MD Specimen See Note [facility] Comment on above: Result Comment: (NOT E) Initial sample Performed By: [facility] [address] [place] [address] Bus Cleaner: Andrew Duran MD, PhD CLIA Number: [id number] Performed By: #### U AMIC, URTPRT #### [facility] [address] [place] [address] Windows Consultant: Gideon Bullock MD AFP, Maternalon 10-10-2023 Current Smoking NO [facility] Comment on above: Performed By: #### U AMIC, URTPRT #### [facility] [address] [place] [address] Windows Consultant: Gideon Bullock MD Dating [facility] Comment on above: Performed By: #### U AMIC, URTPRT #### [facility] [address] [place] [address] Windows Consultant: Gideon Bullock MD Diabetic YES [facility] Comment on above: Performed By: #### U AMIC, URTPRT #### [facility] [address] [place] [address] Windows Consultant: Gideon Bullock MD Donor Egg NO [facility] Comment on above: Performed By: #### U AMIC, URTPRT #### [facility] [address] [place] [address] Windows Consultant: Gideon Bullock MD Estimated Due Date [facility] Comment on above: Performed By: #### U AMIC, URTPRT #### [facility] [address] [place] [address] Windows Consultant: Gideon Bullock MD Family History NONE [facility] Comment on above: Performed By: #### U AMIC, URTPRT #### [facility] [address] [place] [address] Windows Consultant: Gideon Bullock MD In Vitro Fertalizat NO [facility] Comment on above: Performed By: #### U AMIC, URTPRT #### [facility] [address] [place] [address] Windows Consultant: Gideon Bullock MD LMP date [id number] [facility] Comment on above: Performed By: #### U AMIC, URTPRT #### [facility] [address] [place] [address] Windows Consultant: Gideon Bullock MD Maternal date [facility] Comment on above: Performed By: #### U AMIC, URTPRT #### [facility] [address] [place] [address] Windows Consultant: Gideon Bullock MD Maternal Weight 298 [facility] Comment on above: Performed By: #### U AMIC, URTPRT #### [facility] [address] [place] [address] Windows Consultant: Gideon Bullock MD Monochorionic Twins NO [facility] Comment on above: Performed By: #### U AMIC, URTPRT #### [facility] [address] [place] [address] Windows Consultant: Gideon Bullock MD Patient Weight Units [facility] Comment on above: Performed By: #### U AMIC, URTPRT #### [facility] [address] [place] [address] Windows Consultant: Gideon Bullock MD Race (Maternal) NON BLACK [facility] Comment on above: Performed By: #### U AMIC, URTPRT #### [facility] [address] [place] [address] Windows Consultant: Gideon Bullock MD Repeat Specimen NO [facility] Comment on above: Performed By: #### U AMIC, URTPRT #### [address] [address] Windows Consultant: Gideon Bullock MD Valproic/Carbamazep NONE Normal [facility] Comment on above: Performed By: #### U AMIC, URTPRT #### [address] [address] Windows Consultant: Gideon Bullock MD Antithrombin III [place] 10-09 Antithrombin III Act 110 % Normal 83-122 [facility] Comment on above: Result Comment: Patients receiving Hirudin may have a falsely decreased Antitrombin III Activity. Performed By: #### P ROCAC, AT3A, PROSAC, HOCYS, GLYHGB, TSH, LUPPRO, FT4 #### [address] [address] Windows Consultant: Gideon Bullock MD #### AAFPM #### [address] [address] Windows Consultant: Gideon Bullock MD [address] [phone] Windows Consultant: Fantasma Wood MD #### AF5MUT, AMTHFR, APTMUT #### [address] [phone] Windows Consultant: Fantasma Wood MD Lupus Anticoagulanton 1 Anticardiolipin IgA 1.8 APL Normal 0.0-14.0 [facility] Comment on above: Result Comment: Reference Range: <14.0 Negative 14.0-20.0 Equivocal >20.0 Positive When results are Equivocal, it is recommended to retest after 4-6 weeks. Performed By: #### P ROCAC, AT3A, PROSAC, HOCYS, GLYHGB, TSH, LUPPRO, FT4 #### [address] [address] Windows Consultant: Gideon Bullock MD #### AAFPM #### [address] [address] Windows Consultant: Gideon Bullock MD [address] [phone] Windows Consultant: Fantasma Wood MD #### AF5MUT, AMTHFR, APTMUT #### [address] [phone] Windows Consultant: Fantasma Wood MD Anticardiolipin IgG <0.5 Normal 0.0-10.0 [facility] Comment on above: Result Comment: Reference Range: <10.0 Negative 10.0-40.0 Equivocal >40.0 Positive Performed By: #### P ROCAC, AT3A, PROSAC, HOCYS, GLYHGB, TSH, LUPPRO, FT4 #### [address] [address] Windows Consultant: Gideon Bullock MD #### AAFPM #### [address] [address] Windows Consultant: Gideon Bullock MD [address] [phone] Windows Consultant: Fantasma Wood MD #### AF5MUT, AMTHFR, APTMUT #### [address] [phone] Windows Consultant: Fantasma Wood MD Anticardiolipin IgM <0.8 Normal 0.0-10.0 [facility] Comment on above: Result Comment: Reference Range: <10.0 Negative 10.0-40.0 Equivocal >40.0 Positive Performed By: #### P ROCAC, AT3A, PROSAC, HOCYS, GLYHGB, TSH, LUPPRO, FT4 #### [address] [address] Windows Consultant: Gideon Bullock MD #### AAFPM #### [address] [address] Windows Consultant: Gideon Bullock MD [facility] [address] [place] [address] Windows Consultant: Fantasma Wood MD #### AF5MUT, AMTHFR, APTMUT #### [facility] [address] [place] [address] Windows Consultant: Fantasma Wood MD Dilute Heladio Viper Negative Normal [facility] Comment on above: Performed By: #### P ROCAC, AT3A, PROSAC, HOCYS, GLYHGB, TSH, LUPPRO, FT4 #### [address] [address] Windows Consultant: Gideon Bullock MD #### AAFPM #### [address] [address] Windows Consultant: Gideon Bullock MD [facility] [address] [place] [address] Windows Consultant: Fantasma Wood MD #### AF5MUT, AMTHFR, APTMUT #### [facility] [address] [place] [address] Windows Consultant: Fantasma Wood MD Protein C Activityon 024 Protein C Activity 136 % Normal >80 [facility] Comment on above: Result Comment: Patients on [...] PROSAC, HOCYS, GLYHGB, TSH, LUPPRO, FT4 #### [facility] [address] [place] [address] [phone] Windows Consultant: Gideon Bullock MD #### AAFPM #### [address] [address] Windows Consultant: Gideon Bullock MD [facility] [address] [place] [address] Windows Consultant: Fantasma Wood MD #### AF5MUT, AMTHFR, APTMUT #### [facility] [address] [place] [address] Windows Consultant: Fantasma Wood MD Protein S Activityon 024 Protein S Activity 68 % Normal 59-130 [facility] Comment on above: Result Comment: Patients on [...] PROSAC, HOCYS, GLYHGB, TSH, LUPPRO, FT4 #### [address] [address] Windows Consultant: Gideon Bullock MD #### AAFPM #### [address] [address] Windows Consultant: Gideon Bullock MD [facility] [address], [place] [phone] Windows Consultant: Fantasma Wood MD #### AF5MUT, AMTHFR, APTMUT #### [facility] [address] [place] [address] Windows Consultant: Fantasma Wood MD Hemoglobin A1Con 10-09-2023 Glucose [Mass/Vol] 103 mg/dL Normal [facility] Comment on above: Result Comment: The ADA and AACC recommend providing the estimated average glucose result to permit better patient understanding of their HBA1c result. Performed By: #### P ROCAC, AT3A, PROSAC, HOCYS, GLYHGB, TSH, LUPPRO, FT4 #### [facility] [address] [place] [address] Windows Consultant: Gideon Bullock MD #### AAFPM #### [address] [address] Windows Consultant: Gideon Bullock MD [facility] [address] [place] [address] Windows Consultant: Fantasma Wood MD #### AF5MUT, AMTHFR, APTMUT #### [facility] [address] [place] [address] Windows Consultant: Fantasma Wood MD HbA1c (Bld) [Mass fraction] 5.2 % Normal 4.0-6.0 [facility] Comment on above: Performed By: #### P ROCAC, AT3A, PROSAC, HOCYS, GLYHGB, TSH, LUPPRO, FT4 #### [address] [address] Windows Consultant: Gideon Bullock MD #### AAFPM #### [address] [address] Windows Consultant: Gideon Bullock MD [facility] [address] [place] [address] Windows Consultant: Fantasma Wood MD #### AF5MUT, AMTHFR, APTMUT #### [facility] [address] [place] [address] Windows Consultant: Fantasma Wood MD Homocysteineon 10-09-2023 Homocysteine 4.3 umol/L Normal 0.0-15.0 [facility] Comment on above: Performed By: #### P ROCAC, AT3A, PROSAC, HOCYS, GLYHGB, TSH, LUPPRO, FT4 #### [address] [address] Windows Consultant: Gideon Bullock MD #### AAFPM #### [address] [address] Windows Consultant: Gideon Bullock MD [address] [phone] Windows Consultant: Fantasma Wood MD #### AF5MUT, AMTHFR, APTMUT #### [address] [phone] Windows Consultant: Fantasma Wood MD Lupus Anticoagulanton 2023 aPTT Coag (Bld) [Time] 27.5 s Normal 23.0-36.5 [facility] Comment on above: Result Comment: IV Heparin Therapy Range: 66.0-92.0 sec Performed By: #### P ROCAC, AT3A, PROSAC, HOCYS, GLYHGB, TSH, LUPPRO, FT4 #### [address] [address] Windows Consultant: Gideon Bullock MD #### AAFPM #### [address] [address] Windows Consultant: Gideon Bullock MD [address] [phone] Windows Consultant: Fantasma Wood MD #### AF5MUT, AMTHFR, APTMUT #### [facility] [address], [place] [phone] Windows Consultant: Fantasma Wood MD INR Coag (PPP) [Relative time] 1.0 {INR} Normal [facility] Comment on above: Result Comment: Therapeutic Range: Moderate Anticoagulant Intensity: INR = 2.0-3.0 High Anticoagulant Intensity: INR = 2.5-3.5 Performed By: #### P ROCAC, AT3A, PROSAC, HOCYS, GLYHGB, TSH, LUPPRO, FT4 #### [address] [address] Windows Consultant: Gideon Bullock MD #### AAFPM #### [address] [address] Windows Consultant: Gideon Bullock MD [facility] [address], [place] [phone] Windows Consultant: Fantasma Wood MD #### AF5MUT, AMTHFR, APTMUT #### [facility] [address] [place] [address] Windows Consultant: Fantasma Wood MD PT Coag (PPP) [Time] 13.1 s Normal 11.7-14.9 [facility] Comment on above: Performed By: #### P ROCAC, AT3A, PROSAC, HOCYS, GLYHGB, TSH, LUPPRO, FT4 #### [address] [address] Windows Consultant: Gideon Bullock MD #### AAFPM #### [address] [address] Windows Consultant: Gideon Bullock MD [facility] [address], [place] [phone] Windows Consultant: Fantasma Wood MD #### AF5MUT, AMTHFR, APTMUT #### [facility] [address] [place] [address] Windows Consultant: Fantasma Wood MD Protein,Tot,[place] [facility] 2023 Creatinine [Mass/Vol] 120.0 mg/dL Normal 28.0-217.0 [facility] Comment on above: Performed By: #### U AMIC, URTPRT #### [address] [address] Windows Consultant: Gideon Bullock MD Tot Prot. Conc. 10 mg/dL Normal [facility] Comment on above: Result Comment: No n ormal range established. Performed By: #### U AMIC, URTPRT #### [address] [address] Windows Consultant: Gideon Bullock MD TP/Cre Ratio 0.08 Normal [facility] Comment on above: Performed By: #### U AMIC, URTPRT #### [address] [address] Windows Consultant: Gideon Bullock MD Thyroid Stim. Horm.on 2023 Thyroid Stim. Horm. 2.35 uIU/mL Normal 0.27-4.20 [facility] Comment on above: Performed By: #### P ROCAC, AT3A, PROSAC, HOCYS, GLYHGB, TSH, LUPPRO, FT4 #### [address] [address] Windows Consultant: Gideon Bullock MD #### AAFPM #### [address] [address] Windows Consultant: Gideon Bullock MD [address] [address] Windows Consultant: Fantasma Wood MD #### AF5MUT, AMTHFR, APTMUT #### [address] [address] Windows Consultant: Fantasma Wood MD Thyroxine, Freeon 10-09-2023 Thyroxine, Free 0.9 ng/dL Low 0.92-1.68 [facility] Comment on above: Performed By: #### P ROCAC, AT3A, PROSAC, HOCYS, GLYHGB, TSH, LUPPRO, FT4 #### [address] [address] Windows Consultant: Gideon Bullock MD #### AAFPM #### [address] [address] Windows Consultant: Gideon Bullock MD [facility] [address] [place] [address] Windows Consultant: Fantasma Wood MD #### AF5MUT, AMTHFR, APTMUT #### [facility] [address] [place] [address] Windows Consultant: Fantasma Wood MD XR FOOT RT MIN [...] Blas MD on 09/10/2023 12:57 PM Normal [facility] MR BRAIN W WO CONTon 024 [...] Rice MD on 06/14/2023 8:30 AM Normal [facility] BASIC METABOLIC PANLon 05-16 Anion gap [Moles/Vol] 10 mmol/L Normal 5-15 [facility] Comment on above: Performed By: #### B JOSE FERGUSON #### [facility] ([id number]) [address] [place] [address] Calcium [Mass/Vol] 8.9 mg/dL Normal 8.5-10.5 [facility] Comment on above: Performed By: #### B JOSE FERGUSON #### [facility] ([id number]) [address] [place] [address] Chloride [Moles/Vol] 107 mmol/L Normal 98-109 [facility] Comment on above: Performed By: #### B JOSE FERGUSON #### [facility] ([id number]) [address] [place] [address] CO2 [Moles/Vol] 18 mmol/L Low 22-[address] [facility] Comment on above: Performed By: #### B JOSE FERGUSON #### [facility] ([id number]) [address] [place] [address] Creatinine [Mass/Vol] 0.58 mg/dL Normal 0.40-1.00 [facility] Comment on above: Result Comment: METH OD TRACEABLE TO IDMS STANDARD Performed By: #### B JOSE FERGUSON #### [facility] ([id number]) [address] [place] [address] eGFR (CKD-EPI) NON-RACE DEPENDENT >90 Normal >[address] [facility] Comment on above: Result Comment: Reported eGFR is based on the CKD-EPI 2020 equation that does not use a race coefficient. Performed By: #### B MP, CBCA #### [facility] ([id number]) [address] [place] [address] Glucose [Mass/Vol] 109 mg/dL High 65-99 [facility] Comment on above: Performed By: #### B MP, CBCA #### [facility] ([id number]) [address] [place] [address] Potassium [Moles/Vol] 3.3 mmol/L Low 3.5-5.0 [facility] Comment on above: Performed By: #### B MP, CBCA #### [facility] ([id number]) [address] [place] [address] Sodium [Moles/Vol] 135 mmol/L Normal 134-146 [facility] Comment on above: Performed By: #### B PHLYLIS, CBCA #### [facility] ([id number]) [address] [place] [address] Urea nitrogen [Mass/Vol] 16 mg/dL Normal 5-[address] [facility] Comment on above: Performed By: #### B MP, CBCA #### [facility] ([id number]) [address] [place] [address] CBC AND AUTO DIFFon -24-20 24 ABSOLUTE BASOPHIL 0.1 X10E9/L Normal 0.0-0.2 [facility] Comment on above: Performed By: #### B MP, CBCA #### [facility] ([id number]) [address] [place] [address] ABSOLUTE NEUTROPHIL 4.6 X10E9/L Normal 1.5-6.6 [facility] Comment on above: Performed By: #### B MP, CBCA #### [facility] ([id number]) [address] [place] [address] Basophils/100 WBC (Bld) 0.7 % Normal [facility] Comment on above: Performed By: #### B MP, CBCA #### [facility] ([id number]) [address] [place] [address] Eosinophils (Bld) [#/Vol] 0.3 10*3/uL Normal 0.0-0.[address] [facility] Comment on above: Performed By: #### B MP, CBCA #### [facility] ([id number]) [address] [place] [address] Eosinophils/100 WBC (Bld) 4.4 % Normal [facility] Comment on above: Performed By: #### B MP, CBCA #### [facility] ([id number]) [address] [place] [address] Erythrocyte distribution width (RBC) [Ratio] 13.3 % Normal 11.5-15.[address] [facility] Comment on above: Performed By: #### B MP, CBCA #### [facility] ([id number]) [address] [place] [address] Hematocrit (Bld) [Volume fraction] 40.5 % Normal 35-[address] [facility] Comment on above: Performed By: #### B MP, CBCA #### [facility] ([id number]) [address] [place] [address] Hemoglobin (Bld) [Mass/Vol] 13.8 g/dL Normal 11.7-15.[address] [facility] Comment on above: Performed By: #### B MP, CBCA #### [facility] ([id number]) [address] [place] [address] Lymphocytes (Bld) [#/Vol] 2.0 10*3/uL Normal 1.0-3.[address] [facility] Comment on above: Performed By: #### B MP, CBCA #### [facility] ([id number]) [address] [place] [address] Lymphocytes/100 WBC (Bld) 26.3 % Normal [facility] Comment on above: Performed By: #### B MP, CBCA #### [facility] ([id number]) [address] [place] [address] MCH (RBC) [Entitic mass] 27.9 pg Normal 27-[address] [facility] Comment on above: Performed By: #### B MP, CBCA #### [facility] ([id number]) [address] [place] [address]46 MCHC (RBC) [Mass/Vol] 34.0 g/dL Normal 32-36 [facility] Comment on above: Performed By: #### B MP, CBCA #### [facility] ([id number]) [address] [place] [address] MCV (RBC) [Entitic vol] 82 fL Normal 80-[address] [facility] Comment on above: Performed By: #### B MP, CBCA #### [facility] ([id number]) [address] [place] [address] Monocytes (Bld) [#/Vol] 0.5 10*3/uL Normal 0-0.[address] [facility] Comment on above: Performed By: #### B MP, CBCA #### [facility] ([id number]) [address] [place] [address] Monocytes/100 WBC (Bld) 6.9 % Normal [facility] Comment on above: Performed By: #### B MP, CBCA #### [facility] ([id number]) [address] [place] [address] Neutrophils/100 WBC (Bld) 61.7 % Normal [facility] Comment on above: Performed By: #### B MP, CBCA #### [facility] ([id number]) [address] [place] [address]95 Platelet mean volume (Bld) [Entitic vol] 8.4 fL Normal 7-[address] [facility] Comment on above: Performed By: #### B MP, CBCA #### [facility] ([id number]) [address] [place] [address] Platelets (Bld) [#/Vol] 247 10*3/uL Normal 150-[address] [facility] Comment on above: Performed By: #### B MP, CBCA #### [facility] ([id number]) [address] [place] [address]38 RBC COUNT 4.93 X10E12/L Normal 3.80-5.[address] [facility] Comment on above: Performed By: #### B PHYLLIS, CBCA #### [facility] ([id number]) [address] [place] [address] WBC (Bld) [#/Vol] 7.5 10*3/uL Normal 4.0-11.0 [facility] Comment on above: Performed By: #### B PHYLLIS, CBCA #### [facility] ([id number]) [address] [place] [address]RAIN WO CONTon CT BRAIN WO [...] MD on 05/16/2023 10:57 AM Normal [facility] HCG ( test) Ql (U)o n 05-16-2023 Beta HCG ( test) Ql (U) Negative Normal NEG [facility] Comment on above: Performed By: #### 2 106-3 #### [facility] ([id number]) [address] [place] [address] URN MACROSCOPIC NURon 2023 BILIRUBIN TADEO Negative Normal [facility] Comment on above: Performed By: #### N UM #### [facility] ([id number]) [address] [place] [address] BLOOD/HGB TADEO Negative Normal [facility] Comment on above: Performed By: #### N UM #### [facility] ([id number]) [address] [place] [address] GLUCOSE TADEO Negative Normal [facility] Comment on above: Performed By: #### N UM #### [facility] ([id number]) [address] [place] [address] 13222 KETONES TADEO Negative Normal [facility] Comment on above: Performed By: #### N UM #### [facility] ([id number]) [address] [place] [address]3871 LEUKOCYTE ESTERASE TADEO Negative Normal [facility] Comment on above: Performed By: #### N UM #### [facility] ([id number]) [address] [place] [address] NITRITE TADEO Negative Normal [facility] Comment on above: Performed By: #### N UM #### [facility] ([id number]) [address] [place] [address] 42055 PH TADEO 6.5 Normal 5.0-8.[address] [facility] Comment on above: Performed By: #### N UM #### [facility] ([id number]) [address] [place] [address] PROTEIN TADEO Negative Normal NEG [facility] Comment on above: Performed By: #### N UM #### [facility] ([id number]) [address] [place] [address] 35565 SPECIFIC GRAVITY TADEO 1.025 Normal 1.003-1.035 [facility] Comment on above: Performed By: #### N UM #### [facility] ([id number]) [address] [place] [address] 62082 UROBILINOGEN TADEO 0.2 eu/dL Normal <1.1 [facility] Comment on above: Performed By: #### N UM #### [facility] ([id number]) [address] [place] [address] COVID + FLU Quick Testingon 02-05-2023 SARS-CoV-2 (COVID-19) RNA SARANYA+probe Ql (Unsp spec) Negative [facility] [employer] Other COVID + FLU Quick Testing Negative [facility] [employer] Other Aerobic Cultureon 12-22-2022 Aerobic Culture Comment tube 2 No Growth 2 Days Comment tube 2 No Anaerobes Isolated 3 Days Comment tube 2 Gram Stain Result No White Blood Cells Seen No Bacteria Seen PERFORMED BY: [place] [address] PATHOLOGIST [employer] ALLEN COATES M.D. Normal [facility] Comment on above: Performed By: #### C BC, PT, PTT #### [place] [id number] [place] CSF PCR Panelon 12-22-2022 CSF PCR [...] Varicella zoster virus Not detected PERFORMED BY: [place] [address] PATHOLOGIST [employer] ALLEN COATES M.D. [facility] Comment on above: Performed By: #### C SF PCR PANEL #### [address] Cell Count Differential,CSFo n 12-22-2022 Appearance, CSF Clear Normal Clear [facility] Comment on above: Order Comment: Comme nt tube 1 Performed By: #### C SFCCDIFF #2, CSF TP #2, CSF GLU #2, CSF GLU, CSF TP, GS, AERC, CSFCCDIFF #### [address] Order Comment: Comme nt tube 4 Color, CSF Colorless Normal Colorless [facility] Comment on above: Order Comment: Comme nt tube 1 Performed By: #### C SFCCDIFF #2, CSF TP #2, CSF GLU #2, CSF GLU, CSF TP, GS, AERC, CSFCCDIFF #### [address] Order Comment: Comme nt tube 4 CSF Supernatant Color Colorless Normal Colorless [facility] Comment on above: Order Comment: Comme nt tube 1 Performed By: #### C SFCCDIFF #2, CSF TP #2, CSF GLU #2, CSF GLU, CSF TP, GS, AERC, CSFCCDIFF #### [address] Order Comment: Comme nt tube 4 CSF Volume, Total 29.4 mL [facility] Comment on above: Order Comment: Comme nt tube 1 Performed By: #### C SFCCDIFF #2, CSF TP #2, CSF GLU #2, CSF GLU, CSF TP, GS, AERC, CSFCCDIFF #### [facility] [address] Order Comment: Comme nt tube 4 Lymphocytes, CSF 4 Normal [facility] Comment on above: Order Comment: Comme nt tube 1 Result Comment: The reference interval and other method performance specifications have not been established for this body fluid. The test result must be integrated into the clinical context for interpretation. Performed By: #### C SFCCDIFF #2, CSF TP #2, CSF GLU #2, CSF GLU, CSF TP, GS, AERC, CSFCCDIFF #### [facility] [address] [place] [address] RBC, CSF 2 /uL Normal [facility] Comment on above: Order Comment: Comme nt tube 1 Result Comment: The reference interval and other method performance specifications have not been established for this body fluid. The test result must be integrated into the clinical context for interpretation. Performed By: #### C SFCCDIFF #2, CSF TP #2, CSF GLU #2, CSF GLU, CSF TP, GS, AERC, CSFCCDIFF #### [facility] [address] [place] [address] TNC, CSF 1 /uL Normal 0-5 [facility] Comment on above: Order Comment: Comme nt tube 1 Performed By: #### C SFCCDIFF #2, CSF TP #2, CSF GLU #2, CSF GLU, CSF TP, GS, AERC, CSFCCDIFF #### [facility] [address] [place] [address] Order Comment: Comme nt tube 4 Tube Number Tested, CSF Tube Number: 1 Normal [facility] Comment on above: Order Comment: Comme nt tube 1 Result Comment: PERF ORMED BY: [place] [address] PATHOLOGIST [employer] ALLEN COATES M.D. Performed By: #### C SFCCDIFF #2, CSF TP #2, CSF GLU #2, CSF GLU, CSF TP, GS, AERC, CSFCCDIFF #### [facility] [address] Cell Count Differential,CSF #2on 12-22-2022 Lymphocytes, CSF 7 Normal [facility] Comment on above: Order Comment: Comme nt tube 4 Result Comment: The reference interval and other method performance specifications have not been established for this body fluid. The test result must be integrated into the clinical context for interpretation. Performed By: #### C SFCCDIFF #2, CSF TP #2, CSF GLU #2, CSF GLU, CSF TP, GS, AERC, CSFCCDIFF #### [facility] [address] [place] [address] RBC, CSF 1 /uL Normal [facility] Comment on above: Order Comment: Comme nt tube 4 Result Comment: The reference interval and other method performance specifications have not been established for this body fluid. The test result must be integrated into the clinical context for interpretation. Performed By: #### C SFCCDIFF #2, CSF TP #2, CSF GLU #2, CSF GLU, CSF TP, GS, AERC, CSFCCDIFF #### [address] Tube Number Tested, CSF Tube Number: 4 Normal [facility] Comment on above: Order Comment: Comme nt tube 4 Result Comment: PERF ORMED BY: [place] [address] PATHOLOGIST [employer] ALLEN COATES M.D. Performed By: #### C SFCCDIFF #2, CSF TP #2, CSF GLU #2, CSF GLU, CSF TP, GS, AERC, CSFCCDIFF #### [address] Cerebrospinal fluid post-adams trifugation appearance determinationOrdered By: Razia Muller on 12-22-2022 Appearance (Spun CSF) Colorless Colorless [facility] Cerebrospinal fluid sample t ube volume measurementOrdered By: Razia Muller on 12-22-2022 Specimen volume (CSF) 29.4 mL [facility] Color CSFOrdered By: Razia longo on 12-22-2022 Color (CSF) Colorless Colorless [facility] Glucose, CSF #2on 12-22-2022 Glucose, CSF #2 71 mg/dL High 40-70 [facility] Comment on above: Order Comment: Comme nt tube 4 Performed By: #### C BC, PT, PTT #### [facility] [address] [place] [address] [place] Glucose, Spinal Fluidon Glucose, Spinal Fluid 73 mg/dL High 40-70 [facility] Comment on above: Order Comment: Comme nt tube 1 Performed By: #### C SFCCDIFF #2, CSF TP #2, CSF GLU #2, CSF GLU, CSF TP, GS, AERC, CSFCCDIFF #### [facility] [address] [place] [address] Gram Stainon 12-22-2022 Microscopic observation Gram stain Nom (Unsp spec) Comment tube 2 Gram Stain Result No White Blood Cells Seen No Bacteria Seen PERFORMED BY: [place] [address] PATHOLOGIST [employer] ALLEN COATES M.D. [facility] Comment on above: Performed By: #### C SFCCDIFF #2, CSF TP #2, CSF GLU #2, CSF GLU, CSF TP, GS, AERC, CSFCCDIFF #### [facility] [address] [place] [address] IR guided lumbar puncture LP on 12-22-2022 IR guided lumbar puncture LP [facility] [place] [address] [place] [address] Interventional Radiology Rpt Signed Patient: Yani Bang MR#: [id number] : 1990 Acct:[id number] Age/Sex: 32 / F ADM Date: 12/22/22 Loc: XD Room: Type: [facility] Attending Dr: Razia EVANGELISTA Copies to: TONJA [...] Vernon Lin M.D.12/22/2022 1:07 PM Dictation Location: [place] [address] Transcribed By: PATT 12/22/22 3327 Dictated By: Vernon Lin II, MD 12/22/22 1253 Signed By: 12/22/22 1307 [facility] 12-22-2022 L ---- Specimen: [id number] Received: 12/22/22 Status: TERRANCE Collado Num: [id number] Spec Type: Cytology Subm Dr: TONJA Jimenez Tissues: A CSF (CSF) Procedures: Cyto Prepstain, DIFF QWIK, PAPSTN Age/ Patient Sex Location Account Attending Physician Yani Bang 32/F XD [id number] TONJA Jimenez SPEC NUM: [id number] RECD: 12/22/22 STATUS: TERRANCE PAN NUM: [id number] TOMASA: 12/22/22 [facility] DR: TONJA Jimenez ENTERED: 12/22/[address] [facility] [address]: Vernon Lin II, MD SPEC TYPE: Cytology DEPT: [place] ENTERED BY: [id number] RECV BY: [id number] ORDERED: Cyto Prepstain, DIFF QWIK, PAPSTN ORDERED: [...] [id number] Received: 12/22/22 Status: TERRANCE Collado Num: [id number] Spec Type: Cytology Subm Dr: Razia Muller, MANAGER MAINTENANCE-HOT PATCHER-C Tissues: A CSF (CSF) Procedures: Cyto Prepstain, DIFF QWIK, PAPQUITA Patient: Yani Bang [id number] (Continued) Signed (signature on file) Dimas De Anda MD 12/26/22 0905 Normal [facility] Manual cerebrospinal fluid e rythrocytes count (number/volume)Ordered By: Razia Muller on 12-22-2022 RBC Manual cnt (CSF) [#/Vol] 1 /uL [facility] Comment on above: The reference interv al and other method performance specifications have not been established for this body fluid. The test result must be integrated into the clinical context for interpretation. No Panel InformationOrdered By: Razia Muller on 12-22-2022 CSF Appearance Clear Clear [facility] CSF Eosinophils N/A [facility] CSF Lymphocytes 7 [facility] Comment on above: The reference interv al and other method performance specifications have not been established for this body fluid. The test result must be integrated into the clinical context for interpretation. CSF Monocytes N/A [facility] CSF Neutrophils N/A [facility] CSF Tube Number Tube number: 4 [facility] Nucleated cells [#/volume] i n Cerebral spinal fluid by Manual countOrdered By: Razia Muller on 12-22-2022 Nucleated cells Manual cnt (CSF) [#/Vol] 0.001 10*3/uL 0-5 [facility] Total Protein, CSF #2on 09-0 Total Protein, CSF #2 31 mg/dL Normal 15-45 [facility] Comment on above: Order Comment: Comme nt tube 4 Result Comment: PERF ORMED BY: [place] [address] PATHOLOGIST [employer] ARTIST ALLEN COATES M.D. Performed By: #### C BC, PT, PTT #### [place] [address] [place] Total Protein, Spinal Fluido n 12-22-2022 Total Protein, Spinal Fluid 34 mg/dL Normal 15-45 [facility] Comment on above: Order Comment: Comme nt tube 1 Result Comment: PERF ORMED BY: [place] [address] PATHOLOGIST [employer] ARTIST ALLEN COATES M.D. Performed By: #### C BC, PT, PTT #### [facility] [address] [place] [address] Activated partial thrombopla stin time (aPTT) in platelet poor plasma by coagulation aOrdered By: Razia Muller on 12-20-2022 aPTT Coag (PPP) [Time] 32.8 s 25.1-36.5 [facility] Basophils Auto (Bld) [#/Vol] Ordered By: Razia Muller on 12-20-2022 Basophils (Bld) [#/Vol] 0.0 10*3/uL 0.0-0.2 [facility] Basophils/100 WBC Auto (Bld) Ordered By: Razia Muller on 12-20-2022 Basophils/100 WBC (Bld) 0.5 % . [facility] Complete Blood Count Auto Di ffon 12-20-2022 Basophils (Bld) [#/Vol] 0.0 10*3/uL Normal 0.0-0.2 [facility] Comment on above: Result Comment: PERF ORMED BY: [place] [address] PATHOLOGIST [employer] ARTIST ALLEN COATES M.D. Performed By: #### C BC, PT, PTT #### [facility] [address] [place] [address] [place] Basophils/100 WBC (Bld) 0.5 % Normal . [facility] Comment on above: Performed By: #### C BC, PT, PTT #### [facility] [address] [place] [address] [place] Eosinophils (Bld) [#/Vol] 0.2 10*3/uL Normal 0.0-0.45 [facility] Comment on above: Performed By: #### C BC, PT, PTT #### [facility] [address] [place] [address] [place] Eosinophils/100 WBC (Bld) 3.2 % Normal . [facility] Comment on above: Performed By: #### C BC, PT, PTT #### [facility] [address] Erythrocyte distribution width (RBC) [Ratio] 13.9 % Normal 11.9-15.3 [facility] Comment on above: Performed By: #### C BC, PT, PTT #### [facility] [address] Hematocrit (Bld) [Volume fraction] 40.9 % Normal 34.0-46.4 [facility] Comment on above: Performed By: #### C BC, PT, PTT #### [facility] [address] Hemoglobin (Bld) [Mass/Vol] 13.6 g/dL Normal 11.8-15.4 [facility] Comment on above: Performed By: #### C BC, PT, PTT #### [address] Lymphocytes (Bld) [#/Vol] 2.1 10*3/uL Normal 1.00-4.8 [facility] Comment on above: Performed By: #### C BC, PT, PTT #### [address] Lymphocytes/100 WBC (Bld) 29.1 % Normal . [facility] Comment on above: Performed By: #### C BC, PT, PTT #### [address] MCH (RBC) [Entitic mass] 27.6 pg Normal 24.7-34.3 [facility] Comment on above: Performed By: #### C BC, PT, PTT #### [address] MCV (RBC) [Entitic vol] 83.0 fL Normal 80-100 [facility] Comment on above: Performed By: #### C BC, PT, PTT #### [address] Mean Corpuscular HGB Conc 33.2 g/dL Normal 32.0-35.0 [facility] Comment on above: Performed By: #### C BC, PT, PTT #### [facility] [address] Monocytes (Bld) [#/Vol] 0.5 10*3/uL Normal 0.0-0.8 [facility] Comment on above: Performed By: #### C BC, PT, PTT #### [facility] [address] Monocytes/100 WBC (Bld) 6.3 % Normal . [facility] Comment on above: Performed By: #### C BC, PT, PTT #### [facility] [address] Neutrophils (Bld) [#/Vol] 4.4 10*3/uL Normal 1.8-7.7 [facility] Comment on above: Performed By: #### C BC, PT, PTT #### [address] Neutrophils/100 WBC (Bld) 60.9 % Normal . [facility] Comment on above: Performed By: #### C BC, PT, PTT #### [facility] [address] [place] [address] NRBC% 0.1 /100{WBC} Normal 0-0.5 [facility] Comment on above: Performed By: #### C BC, PT, PTT #### [facility] [address] [place] [address] [place] Platelet mean volume (Bld) [Entitic vol] 8.1 fL Normal 6.3-10.7 [facility] Comment on above: Performed By: #### C BC, PT, PTT #### [facility] [address] [place] [address] [place] Platelets (Bld) [#/Vol] 222 10*3/uL Normal 150-450 [facility] Comment on above: Performed By: #### C BC, PT, PTT #### [facility] [address] [place] [address] [place] RBC (Bld) [#/Vol] 4.93 10*6/uL Normal 3.60-5.00 [facility] Comment on above: Performed By: #### C BC, PT, PTT #### [facility] [address] WBC (Bld) [#/Vol] 7.3 10*3/uL Normal 3.8-11.6 [facility] Comment on above: Performed By: #### C BC, PT, PTT #### [facility] [address] Eosinophils Auto (Bld) [#/Vo l]Ordered By: Razia Muller on 12-20-2022 Eosinophils (Bld) [#/Vol] 0.2 10*3/uL 0.0-0.45 [facility] Eosinophils/100 WBC Auto (Bl d)Ordered By: Razia Muller on 12-20-2022 Eosinophils/100 WBC (Bld) 3.2 % . [facility] Erythrocyte distribution wid th Auto (RBC) [Ratio]Ordered By: Razia Muller on 12-20-2022 Erythrocyte distribution width (RBC) [Ratio] 13.9 % 11.9-15.3 [facility] Hematocrit Auto (Bld) [Volum e fraction]Ordered By: Razia Muller on 12-20-2022 Hematocrit (Bld) [Volume fraction] 40.9 % 34.0-46.4 [facility] Hemoglobin [Mass/volume] in BloodOrdered By: Razia Muller on 12-20-2022 Hemoglobin (Bld) [Mass/Vol] 13.6 g/dL 11.8-15.4 [facility] INR in Platelet poor plasma by Coagulation assayOrdered By: Razia Muller on 12-20-2022 INR Coag (PPP) [Relative time] 1.0 {INR} [facility] Comment on above: INR Therapeutic Rang e [...] (Bld) [#/Vol] 7.3 10*3/uL 3.8-11.6 [facility] Lymphocytes Auto (Bld) [#/Vo l]Ordered By: Razia Muller on 12-20-2022 Lymphocytes (Bld) [#/Vol] 2.1 10*3/uL 1.00-4.8 [facility] Lymphocytes/100 WBC Auto (Bl d)Ordered By: Razia Muller on 12-20-2022 Lymphocytes/100 WBC (Bld) 29.1 % . [facility] MCH Auto (RBC) [Entitic mass ]Ordered By: Razia Muller on 12-20-2022 MCH (RBC) [Entitic mass] 27.6 pg 24.7-34.3 [facility] MCHC Auto (RBC) [Mass/Vol]Or dered By: Razia Muller on 12-20-2022 MCHC (RBC) [Mass/Vol] 33.2 g/dL 32.0-35.0 [facility] MCV Auto (RBC) [Entitic vol] Ordered By: Razia Muller on 12-20-2022 MCV (RBC) [Entitic vol] 83.0 fL 80-100 [facility] Monocytes Auto (Bld) [#/Vol] Ordered By: Razia Muller on 12-20-2022 Monocytes (Bld) [#/Vol] 0.5 10*3/uL 0.0-0.8 [facility] Monocytes/100 WBC Auto (Bld) Ordered By: Razia Muller on 12-20-2022 Monocytes/100 WBC (Bld) 6.3 % . [facility] Neutrophils Auto (Bld) [#/Vo l]Ordered By: Razia Muller on 12-20-2022 Neutrophils (Bld) [#/Vol] 4.4 10*3/uL 1.8-7.7 [facility] Neutrophils/100 WBC Auto (Bl d)Ordered By: Razia uMller on 12-20-2022 Neutrophils/100 WBC (Bld) 60.9 % . [facility] Nucleated erythrocytes [Pres ence] in Blood by Automated countOrdered By: Razia Muller on 12-20-2022 Nucleated RBC Auto Ql (Bld) 0.1 /100{WBC} 0-0.5 [facility] Partial Thromboplastin Timeo n 12-20-2022 aPTT Coag (Bld) [Time] 32.8 s Normal 25.1-36.5 [facility] Comment on above: Result Comment: PERF ORMED BY: [place] [address] PATHOLOGIST M[employer] ARTIST ALLEN COATES M.D. Performed By: #### C BC, PT, PTT #### [facility] [address] Platelet mean volume Auto (B ld) [Entitic vol]Ordered By: Razia Muller on 12-20-2022 Platelet mean volume (Bld) [Entitic vol] 8.1 fL 6.3-10.7 [facility] Platelets Auto (Bld) [#/Vol] Ordered By: Razia Muller on 12-20-2022 Platelets (Bld) [#/Vol] 222 10*3/uL 150-450 [facility] Prothrombin Time INRon 12-20 INR Coag (PPP) [Relative time] 1.0 {INR} Normal [facility] Comment on above: Result Comment: INR Therapeutic [...] By: #### C BC, PT, PTT #### [facility] [address] PT Coag (PPP) [Time] 11.1 s Normal 9.0-12.9 [facility] Comment on above: Performed By: #### C BC, PT, PTT #### [facility] [address] RBC Auto (Bld) [#/Vol]Ordere d By: Razia Renzo on 12-20-2022 RBC (Bld) [#/Vol] 4.93 10*6/uL 3.60-5.00 [facility] WBC Auto (Bld) [#/Vol]Ordere d By: Razia Renzo on 12-20-2022 WBC (Bld) [#/Vol] 7.3 10*3/uL 3.8-11.6 [facility] POC Glucose Fingerstickon Glucose [Mass/Vol] 85 mg/dL 65 - 105 mg/dL [facility] C.trachomatis N.gonorrhoeae DNA, Urineon 07-21-2022 Chlamydia sp DNA SARANYA+probe Ql (U) Negative NEGATIVE [employer] Comment on above: CHLAMYDIA TRACHOMATI S DNA [...] gonorrhoeae DNA SARANYA+probe Ql (U) Negative NEGATIVE [employer] Comment on above: NEISSERIA GONORRHOEA E DNA [...] alternative nucleic acid target. Specimen Description .URINE [facility] CBC auto differentialon 06-23 Absolute Eos # [facility] Absolute Immature Granulocyte 0.12 [facility] Absolute Lymph # 1.21 [facility] Absolute [place] # 0.69 [facility] Basophils (Bld) [#/Vol] 0.03 10*3/uL [facility] Basophils/100 WBC (Bld) 0 % 0 - 2 % [facility] Eosinophils/100 WBC (Bld) 0 % Low 1 - 4 % [facility] Hematocrit (Bld) [Volume fraction] 33.5 % Low 36.3 - 47.1 % [facility] Hemoglobin (Bld) [Mass/Vol] 10.8 g/dL Low 11.9 - 15.1 g/dL [facility] Immature granulocytes/100 WBC (Bld) 1 % High 0 [facility] Interpretation and review of laboratory results Abnormal [facility] Lymphocytes/100 WBC (Bld) 8 % Low 24 - 43 % [facility] MCH (RBC) [Entitic mass] 28.4 pg 25.2 - 33.5 pg [facility] MCHC (RBC) [Mass/Vol] 32.2 g/dL 28.4 - 34.8 g/dL [facility] MCV (RBC) [Entitic vol] 88.2 fL 82.6 - 102.9 fL [facility] Monocytes/100 WBC (Bld) 4 % 3 - 12 % [facility] NRBC Automated 0.0 0.0 per 100 WBC [facility] Platelet distribution width (Bld) [Ratio] 13.2 % 11.8 - 14.4 % [facility] Platelet mean volume (Bld) [Entitic vol] 10.5 fL 8.1 - 13.5 fL [facility] Platelets (Bld) [#/Vol] 197 10*3/uL [facility] RBC (Bld) [#/Vol] 3.80 10*6/uL Low 3.95 - 5.1 1 m/uL [facility] Segmented neutrophils/100 WBC (Bld) 87 % High 36 - 65 % [facility] Segs Absolute 13.58 High [facility] WBC (Bld) [#/Vol] 15.6 10*3/uL High [facility] Culture, Urineon 07-21-2022 Microorganism identified Cx Nom (Unsp spec) NO SIGNIFICANT GROWTH [facility] Specimen Description .CLEAN CATCH URINE [facility] POC Glucose Fingerstickon Glucose [Mass/Vol] 108 mg/dL High 65 - 105 mg/dL [facility] Interpretation and review of laboratory results Abnormal [facility] Glucose [Mass/Vol] 95 mg/dL 65 - 105 mg/dL [facility] Glucose [Mass/Vol] 123 mg/dL High 65 - 105 mg/dL [facility] Interpretation and review of laboratory results Abnormal [facility] CBCon 07-20-2022 Hematocrit (Bld) [Volume fraction] 32.8 % Low 36.3 - 47.1 % [facility] Hemoglobin (Bld) [Mass/Vol] 11.0 g/dL Low 11.9 - 15.1 g/dL [facility] Interpretation and review of laboratory results Abnormal [facility] MCH (RBC) [Entitic mass] 28.6 pg 25.2 - 33.5 pg [facility] MCHC (RBC) [Mass/Vol] 33.5 g/dL 28.4 - 34.8 g/dL [facility] MCV (RBC) [Entitic vol] 85.4 fL 82.6 - 102.9 fL [facility] NRBC Automated 0.0 0.0 per 100 WBC [facility] Platelet distribution width (Bld) [Ratio] 13.2 % 11.8 - 14.4 % [facility] Platelet mean volume (Bld) [Entitic vol] 10.8 fL 8.1 - 13.5 fL [facility] Platelets (Bld) [#/Vol] 200 10*3/uL [facility] RBC (Bld) [#/Vol] 3.84 10*6/uL Low 3.95 - 5.1 1 m/uL [facility] WBC (Bld) [#/Vol] 10.2 10*3/uL [facility] Comprehensive Metabolic Pane jaylan 07-20-2022 Albumin [Mass/Vol] 3.3 g/dL Low 3.5 - 5.2 g/dL [facility] Albumin/Globulin [Mass ratio] 1.0 {ratio} 1.0 - 2.5 [facility] ALP [Catalytic activity/Vol] 142 U/L High 35 - 104 U/L [facility] ALT [Catalytic activity/Vol] 15 U/L 5 - 33 U/L [facility] Anion gap [Moles/Vol] 12 mmol/L 9 - 17 mmol/L [facility] AST [Catalytic activity/Vol] 15 U/L NINF - 32 U/L [facility] Bilirubin [Mass/Vol] mg/dL Low 0.3 - 1 .2 mg/dL [facility] Calcium [Mass/Vol] 9.0 mg/dL 8.6 - 10. 4 mg/dL [facility] Chloride [Moles/Vol] 104 mmol/L 98 - 10 7 mmol/L [facility] CO2 [Moles/Vol] 21 mmol/L 20 - 31 mmol/L [facility] Creatinine [Mass/Vol] 0.41 mg/dL Low 0.50 - 0.90 mg/dL [facility] GFR/1.73 sq M.predicted MDRD (S/P/Bld) [Vol rate/Area] - PINF [facility] Comment on above: These results are not [...] 135 mg/dL High 70 - 99 mg/dL [facility] Interpretation and review of laboratory results Abnormal [facility] Potassium [Moles/Vol] 3.8 mmol/L 3.7 - 5.3 mmol/L [facility] Protein [Mass/Vol] 6.5 g/dL 6.4 - 8.3 g/dL [facility] Sodium [Moles/Vol] 137 mmol/L 135 - 144 mmol/L [facility] Urea nitrogen [Mass/Vol] 8 mg/dL 6 - 20 mg/dL [facility] DRUG SCREEN MULTI URINEon Amphetamine Screen, Ur Negative NEGATIVE [facility] Comment on above: (Positive cutoff 1000 ng/mL) Barbiturate Screen, Ur Negative NEGATIVE [facility] Comment on above: (Positive cutoff 200 ng/mL) Benzodiazepine Screen, Urine Negative NEGATIVE [facility] Comment on above: (Positive cutoff 200 ng/mL) Cannabinoid Scrn, Ur Negative NEGATIVE [facility] Comment on above: (Positive cutoff 50 ng/mL) Cocaine Metabolite, Urine Negative NEGATIVE [facility] Comment on above: (Positive cutoff 300 ng/mL) Fentanyl, Ur Negative NEGATIVE [facility] Comment on above: (Positive cutoff 5 ng/ml) Methadone Screen, Urine Negative NEGATIVE [facility] Comment on above: (Positive cutoff 300 ng/mL) Opiates, Urine Negative NEGATIVE [facility] Comment on above: (Positive cutoff 300 ng/mL) Oxycodone Screen, Ur Negative NEGATIVE [facility] Comment on above: (Positive cutoff 100 ng/mL) Phencyclidine, Urine Negative NEGATIVE [facility] Comment on above: (Positive cutoff 25 ng/mL) Test Information Assay provides medic al screening only. The absence of expected drug(s) and/or metabolite(s) may indicate diluted or adulterated urine, limitations of testing or timing of collection. [facility] Comment on above: Testing for legal pu rposes should be confirmed by another method. To request confirmation of test result, please call the lab within 7 days of sample submission. [facility] GROUP B STREP CULTUREon 06-23 S. agalactiae Ag Ql (Unsp spec) Culture Observations: NEGATIVE FOR GROUP B STREPTOCOCCUS. Normal [facility] Comment on above: Performed By: #### [id number] #### [facility] [address] [place], [place] [address] Dr. Valeria Farris POC Glucose Fingerstickon Glucose [Mass/Vol] 116 mg/dL High 65 - 105 mg/dL [facility] Interpretation and review of laboratory results Abnormal [facility] Protein / creatinine ratio, urineon 07-20-2022 Creatinine, Ur 95.9 mg/dL 28.0 - 217.0 mg/dL [facility] Protein (U) [Mass/Vol] 17 mg/dL [facility] Comment on above: No normal range esta blished. Urine Total Protein Creatinine Ratio 0.18 0.00 - 0.20 [facility] T. pallidum Abon 07-20-2022 T. pallidum Ab IA Ql (S) Non-Reactive NONREACTIVE [facility] Comment on above: T. pallidum antibodies are not detected. There is no serological evidence of infection with T. pallidum (early primary syphilis cannot be excluded). Retest in 2-4 weeks if syphilis is clinically suspect. [facility] TYPE AND SCREENon 07-20-2022 ABO/Rh Positive [facility] Arm Band Number BE [id number] [facility] Expiration Date 07/23/2022,2352 [facility] US CHINYERE DOP LEG LTon 07-20-19 [...] by: GERARD GONZALEZ Date: 2022-07-19 15:06 Normal [facility] COVID + FLU Quick Testingon 07-18-2022 SARS-CoV-2 (COVID-19) RNA SARANYA+probe Ql (Unsp spec) Negative [facility] Other COVID + FLU Quick Testing Negative [facility] Other Quick Strepon 07-18-2022 S. pyogenes Org specific cx Ql (Throat) Negative [facility] Other Quick Strep [facility] Other US PREG BIOPHY W NON STRESSo [...] by: GERARD GONZALEZ Date: 2022-07-17 15:56 Normal [facility] Brain Natriuretic Peptideon 07-15-2022 Natriuretic peptide B (Bld) [Mass/Vol] pg/mL [facility] - 300 pg/mL [facility] appiris Comment on above: An age-independent cutoff point of 300 pg/ml has a 98% negative predictive value excluding acute heart failure. [facility] Comprehensive metabolic pane jaylan 07-15-2022 Albumin [Mass/Vol] 3.4 g/dL Low 3.5 - 5.2 g/dL [facility] Albumin/Globulin [Mass ratio] 1.0 {ratio} 1.0 - 2.5 [facility] ALP [Catalytic activity/Vol] 138 U/L High 35 - 104 U/L [facility] ALT [Catalytic activity/Vol] 16 U/L 5 - 33 U/L [facility] Anion gap [Moles/Vol] 12 mmol/L 9 - 17 mmol/L [facility] AST [Catalytic activity/Vol] 23 U/L NINF - 32 U/L [facility] Bilirubin [Mass/Vol] mg/dL Low 0.3 - 1 .2 mg/dL [facility] Calcium [Mass/Vol] 8.9 mg/dL 8.6 - 10. 4 mg/dL [facility] Chloride [Moles/Vol] 102 mmol/L 98 - 10 7 mmol/L [facility] CO2 [Moles/Vol] 19 mmol/L Low 20 - 31 mmol/L [facility] Creatinine [Mass/Vol] 0.38 mg/dL Low 0.50 - 0.90 mg/dL [facility] GFR/1.73 sq M.predicted MDRD (S/P/Bld) [Vol rate/Area] - PINF [facility] Comment on above: These results are not [...] 131 mg/dL High 70 - 99 mg/dL [facility] Interpretation and review of laboratory results Abnormal [facility] Potassium [Moles/Vol] 3.5 mmol/L Low 3.7 - 5.3 mmol/L [facility] Protein [Mass/Vol] 6.7 g/dL 6.4 - 8.3 g/dL [facility] Sodium [Moles/Vol] 133 mmol/L Low 135 - 144 mmol/L [facility] Urea nitrogen [Mass/Vol] 9 mg/dL 6 - 20 mg/dL [facility] HIV Screenon 07-15-2022 HIV 1+2 Ab+HIV1 p24 Ag IA Ql Non-Reactive NONREACTIVE [facility] Comment on above: No laboratory eviden ce of HIV infection. If acute HIV infection is suspected, consider testing for HIV-1 RNA. [facility] Protein / Creatinine Ratio, Urineon 07-15-2022 Creatinine, Ur 33.5 mg/dL 28.0 - 217.0 mg/dL [facility] Protein (U) [Mass/Vol] 5 mg/dL [facility] Comment on above: No normal range esta blished. Urine Total Protein Creatinine Ratio 0.15 0.00 - 0.20 [facility] TYPE AND SCREENon 07-15-2022 ABO/Rh Positive [facility] Arm Band Number BE [id number] [facility] Expiration Date 07/18/2022,2359 [facility] Troponinon 07-15-2022 Troponin I.cardiac DL <= 0.01 ng/mL [Mass/Vol] ng/L 0 - 14 ng/L [facility] Comment on above: High Sensitivity Tro ponin values cannot be compared with other Troponin methodologies. [facility] XR CHEST (SINGLE VIEW FRONTA L)on 07-15-2022 No acute process. [facility] CONSOLID[facility] EXAMINATION: ONE XRAY VIEW OF THE [...] without acute process. IMPRESSION: No acute process. [facility]is Work Phone: Radiology Study observation (narrative) [facility] Work Phone: XR CHEST (SINGLE VIEW FRONTA L)Ordered By: Abner Dela Cruz on 07-15-2022 [facility] Work Phone: US PREG BIOPHY W NON [...] GERARD GONZALEZ Date: 2022-07-10 15:41 Normal [facility] US PREG BIOPHY W NON STRESSo [...] by: GERARD GONZALEZ Date: 2022-07-04 16:21 Normal [facility] UA (CLEAN/CATCH) BIG 6 DEALER/MICRO I F IND.on 06-30-2022 Bilirubin Ql (U) Negative Normal NEGATIVE [facility] Comment on above: Performed By: #### [id number] #### [facility] [address] [place] [address] Dr. Valeria Farris Clarity (U) CLEAR Normal CLEAR [facility] Comment on above: Performed By: #### [id number] #### [facility] [address] [place] [address] Dr. Valeria Farris Color (U) LT. YELLOW Normal YELLOW [facility] Comment on above: Performed By: #### [id number] #### [facility] [address] [place] [address] Dr. Valeria Farris Glucose Ql (U) Negative Normal NEGATIVE [facility] Comment on above: Performed By: #### 4 [id number] #### [facility] [address] [place] [address] Dr. Valeria Farris Hemoglobin Ql (U) LARGE Abnormal NEGATIVE [facility] Comment on above: Performed By: #### [id number] #### [facility] [address] [place] [address] Dr. Valeria Farris Ketones Ql (U) Negative Normal NEGATIVE [facility] Comment on above: Performed By: #### [id number] #### [facility] [address] [place] [address] Dr. Valeria Farris LEUKOCYTES Negative Normal NEGATIVE [facility] Comment on above: Performed By: #### [id number] #### [facility] [address] [place] [address] Dr. Valeria Farris Nitrite Ql (U) Negative Normal NEGATIVE [facility] Comment on above: Performed By: #### [id number] #### [facility] [address] [place] [address] Dr. Valeria Farris pH (U) 6.5 [pH] Normal 5-9 [facility] Comment on above: Performed By: #### 4 [id number] #### [facility] [address] [place] [address] Dr. Valeria Farris SPEC GRAVITY <=1.005 Abnormal 1.005-<=1.02 5 [facility] Comment on above: Performed By: #### 4 [id number] #### [facility] [address] [place] [address] Dr. Valeria Farris UA PROTEIN Negative Normal NEGATIVE/ TRACE [facility] Comment on above: Performed By: #### [id number] #### [facility] [address] [place] [address] Dr. Valeria Farris UR MICRO IND INDICATED Normal [facility] Comment on above: Performed By: #### 4 [id number] #### [facility] [address] [place] [address] Dr. Valeria Farris Urobilinogen Qn (U) 0.2 {Manolo'U}/dL Normal 0.2 - 1. 0 [facility] Comment on above: Performed By: #### 4 [id number] #### [facility] [address] [place] [address] Dr. Valeria Farris URINE MICROSCOPIC ONLYon BACTERIA NONE SEEN Normal NONE SEEN [facility] Comment on above: Performed By: #### [id number] #### [facility] [address] [place] [address] Dr. Valeria Farris Bacteria identified Cx Nom (U) NOT INDICATED Normal [facility] Comment on above: Performed By: #### [id number] #### [facility] [address] [place] [address] Dr. Valeria Farris CAST NONE SEEN Normal NONE SEEN [facility] Comment on above: Performed By: #### [id number] #### [facility] [address] [place] [address] Dr. Valeria Farris Crystals LM Nom (Urine sed) NONE SEEN Normal NONE SEEN [facility] Comment on above: Performed By: #### 4 [id number] #### [facility] [address] [place] [address] Dr. Valeria Farris Epithelial cells LM Ql (Urine sed) FEW Abnormal NONE SEEN /RARE [facility] Comment on above: Performed By: #### 4 [id number] #### [facility] [address] [place] [address] Dr. Valeria Farris MUCOUS NONE SEEN Normal NONE SEEN [facility] Comment on above: Performed By: #### 4 [id number] #### [facility] [address] [place] [address] Dr. Valeria Farris RBC 5-10 Abnormal 0-2 [facility] Comment on above: Performed By: #### [id number] #### [facility] [address] [place] [address] Dr. Valeria Farris WBC 0-2 Abnormal NONE SEEN [facility] Comment on above: Performed By: #### 4 [id number] #### [facility] [address] [place] [address] Dr. Valeria Farris No Panel Informationon 06-29 [facility] T4, Freeon 06-29-2022 Free T4 [Mass/Vol] 0.82 ng/dL Low 0.93 - 1. 70 ng/dL [facility] Interpretation and review of laboratory results Abnormal [facility] TSHon 06-29-2022 TSH Qn 2.16 m[IU]/L [facility] US PREG BIOPHY W NON STRESSo n [...] ALINE GALICIA Date: 2022-06-26 07:50 Normal [facility] US PREG BIOPHY W NON STRESSo [...] GERARD GONZALEZ Date: 2022-06-19 15:28 Normal [facility] CREATININE CLEARon 3 BODY SURF AREA 2.35 Normal [facility] Comment on above: Performed By: #### DAPHNE SUN #### [facility] [address] [address] [address] Valeria MAST CLEARANCE 128.94 ml/min Critically high 75.00-115.00 [facility] Comment on above: Performed By: #### DAPHNE SUN #### [facility] [address] [address] [address] Valeria MAST, 24 HR UR 882.73 mg/24 hr Normal 800.00-1,8 00 .00 [facility] Comment on above: Performed By: #### DAPHNE SUN #### [facility] [address] [place] [address] Dr. Valeria Farris Creatinine [Mass/Vol] 0.35 mg/dL Critically low 0.55-1.02 [facility] Comment on above: Performed By: #### U LETI ICRO #### [facility] [address] [place] [address] Dr. Valeria Farris URINE CREAT 21.53 mg/dL Normal 20.00-300.00 [facility] Comment on above: Performed By: #### U [facility]I [facility] #### [facility] [address] [place] [address] Dr. Valeria Farris PROTEIN 24HR URINEon 023 T PROT, 24 HR UR 241.9 mg/24 hr Critically high <=149.1 [facility] Comment on above: Performed By: #### P [id number] #### [facility] [address] [place] [address] Dr. Valeria Farris UR PROT 5.9 mg/dL Normal <=11.9 [facility] Comment on above: Performed By: #### P [id number] #### [facility] [address] [place] [address] Dr. Valeria Farris UR TOT VOL 4100 ml/24 HR Normal [facility] Comment on above: Performed By: #### P [id number] #### [facility] [address] [place] [address] Dr. Valeria Farris Performed By: #### U LETI [facility] #### [facility] [address] [place] [address] Dr. Valeria Farris CBC AUTO DIFFon 06-17-2022 BASO # 0.0 103/ul Normal 0.0-0.1 [facility] Comment on above: Performed By: #### G LU1HR #### [facility] [address] [place] [address] Dr. Valeria Farris Basophils/100 WBC (Bld) 0.4 % Normal 0.2-2.0 [facility] Comment on above: Performed By: #### G LU1HR #### [facility] [address] [address] [address] Valeria Farris EO # 0.2 103/ul Normal 0.0-0.7 [facility] Comment on above: Performed By: #### G LU1HR #### [facility] [address] [address] [address] Valeria Farris Eosinophils/100 WBC (Bld) 2.0 % Normal 0.9-7.0 [facility] Comment on above: Performed By: #### G LU1HR #### [facility] [address] [place] [address] Dr. Valeria Farris Erythrocyte distribution width (RBC) [Ratio] 13.3 % Normal 11.0-15.0 [facility] Comment on above: Performed By: #### G LU1HR #### [facility] [address] [place] [address] Dr. Valeria Farris Hematocrit (Bld) [Volume fraction] 31.8 % Critically low 36.0-48.0 [facility] Comment on above: Performed By: #### G LU1HR #### [facility] [address] [place] [address] Dr. Valeria Farris Hemoglobin (Bld) [Mass/Vol] 10.8 g/dL Critically low 12.0-16.0 [facility] Comment on above: Performed By: #### G LU1HR #### [facility] [address] [place] [address] Dr. Valeria Farris IG # 0.09 10e3/ul Critically high 0.00-0.03 [facility] Comment on above: Performed By: #### G LU1HR #### [facility] [address] [place] [address] Dr. Valeria Farris IG % 0.8 % Critically high 0.0-0.5 [facility] Comment on above: Performed By: #### G LU1HR #### [facility] [address] [place] [address] Dr. Valeria Farris LYMPH # 2.2 103/ul Normal 1.2-3.8 [facility] Comment on above: Performed By: #### G LU1HR #### [facility] [address] [address] [address] Valeria Farris Lymphocytes/100 WBC (Bld) 20.0 % Critically low 20.5-60.0 [facility] Comment on above: Performed By: #### G LU1HR #### [facility] [address] [place] [address] Dr. Valeria Farris MANUAL DIFF REQ NO Normal [facility] Comment on above: Performed By: #### G LU1HR #### [facility] [address] [place] [address] Dr. Valeria Farris MCH (RBC) [Entitic mass] 28.4 pg Normal 26.7-34.0 [facility] Comment on above: Performed By: #### G LU1HR #### [facility] [address] [place] [address] Dr. Valeria Farris MCHC (RBC) [Mass/Vol] 34.0 g/dL Normal 29.9-35.2 [facility] Comment on above: Performed By: #### G LU1HR #### [facility] [address] [place] [address] Dr. Valeria Farris MCV (RBC) [Entitic vol] 83.7 fL Normal 81.0-99.0 [facility] Comment on above: Performed By: #### G LU1HR #### [facility] [address] [place] [address] Dr. Valeria Farris MONO # 0.9 103/ul Critically high 0.3-0.8 [facility] Comment on above: Performed By: #### G LU1HR #### [facility] [address] [place] [address] Dr. Valeria Farris Monocytes/100 WBC (Bld) 7.9 % Normal 1.7-12.0 [facility] Comment on above: Performed By: #### G LU1HR #### [facility] [address] [place] [address] Dr. Valeria Farris NEUT # 7.7 103/ul Critically high 1.4-6.5 [facility] Comment on above: Performed By: #### G LU1HR #### [facility] [address] [place] [address] Dr. Valeria Farris Neutrophils/100 WBC (Bld) 68.9 % Normal 43.0-75.0 [facility] Comment on above: Performed By: #### G LU1HR #### [facility] [address] [place] [address] Dr. Valeria Farris Platelet mean volume (Bld) [Entitic vol] 10.7 fL Normal 9.5-13.5 [facility] Comment on above: Performed By: #### G LU1HR #### [facility] [address] [place] [address] Dr. Valeria Farris PLT 195 103/ul Normal 150-450 [facility] Comment on above: Performed By: #### G LU1HR #### [facility] [address] [place] [address] Dr. Valeria Farris RBC 3.80 106/ul Critically low 4.20-5.40 [facility] Comment on above: Performed By: #### G LU1HR #### [facility] [address] [place] [address] Dr. Valeria Farris WBC 11.2 103/ul Critically high 4.0-11.0 [facility] Comment on above: Performed By: #### G LU1HR #### [facility] [address] [place] [address] Dr. Valeria Farris LDHon 06-17-2022 LDH 230 U/L Normal 81-234 [facility] Comment on above: Performed By: #### P [id number] #### [facility] [address] [place] [address] Dr. Valeria Farris PROF 14(COMP METB)on 023 Albumin [Mass/Vol] 2.6 g/dL Critically low 3.4-5.0 [facility] Comment on above: Performed By: #### P ROT24U #### [facility] [address] [place] [address] Dr. Valeria Farris Albumin/Globulin [Mass ratio] 0.6 {ratio} Normal [facility] Comment on above: Performed By: #### P ROT24U #### [facility] [address] [place] [address] Dr. Valeria Farris ALP [Catalytic activity/Vol] 112 U/L Normal 46-116 [facility] Comment on above: Performed By: #### P ROT24U #### [facility] [address] [place] [address] Dr. Valeria Farris ALT [Catalytic activity/Vol] 18 U/L Normal 14-59 [facility] Comment on above: Performed By: #### P ROT24U #### [facility] [address] [place] [address] Dr. Valeria Farris Anion gap [Moles/Vol] 13.1 mmol/L Normal [facility] Comment on above: Performed By: #### P ROT24U #### [facility] [address] [place] [address] Dr. Valeria Farris AST [Catalytic activity/Vol] 22 U/L Normal 15-37 [facility] Comment on above: Performed By: #### P ROT24U #### [facility] [address] [place] [address] Dr. Valeria Farris Bilirubin [Mass/Vol] 0.2 mg/dL Normal 0.2-1.0 [facility] Comment on above: Performed By: #### P ROT24U #### [facility] [address] [place] [address] Dr. Valeria Farris Calcium [Mass/Vol] 9.1 mg/dL Normal 8.5-10.1 [facility] Comment on above: Performed By: #### P ROT24U #### [facility] [address] [place] [address] Dr. Valeria Farris Chloride [Moles/Vol] 103 mmol/L Normal 98-107 [facility] Comment on above: Performed By: #### P ROT24U #### [facility] [address] [place] [address] Dr. Valeria Farris CO2 [Moles/Vol] 25.8 mmol/L Normal 21.0-32.0 [facility] Comment on above: Performed By: #### P ROT24U #### [facility] [address] [place] [address] Dr. Valeria Farris Creatinine [Mass/Vol] 0.35 mg/dL Critically low 0.55-1.02 [facility] Comment on above: Performed By: #### P ROT24U #### [facility] [address] [address] [address] Valeria Farris EGFR-AF [place]ORE[place] >60 Normal >=60 [facility] Comment on above: Performed By: #### P ROT24U #### [facility] [address] [place] [address] Dr. Valeria Farris EGFR-NON AF [place] >60 Normal >=60 [facility] Comment on above: Performed By: #### P ROT24U #### [facility] [address] [place] [address] Dr. Valeria Farris Globulin (S) [Mass/Vol] 4.2 g/dL Normal [facility] Comment on above: Performed By: #### P ROT24U #### [facility] [address] [place] [address] Dr. Valeria Farris Glucose [Mass/Vol] 80 mg/dL Normal 74-106 [facility] Comment on above: Performed By: #### P ROT24U #### [facility] [address] [place] [address] Dr. Valeria Farris Potassium [Moles/Vol] 3.9 mmol/L Normal 3.5-5.1 [facility] Comment on above: Performed By: #### P ROT24U #### [facility] [address] [place] [address] Dr. Valeria Farris Protein [Mass/Vol] 6.8 g/dL Normal 6.4-8.2 [facility] Comment on above: Performed By: #### P ROT24U #### [facility] [address] [place] [address] Dr. Valeria Farris Sodium [Moles/Vol] 138 mmol/L Normal 136-145 [facility] Comment on above: Performed By: #### P ROT24U #### [facility] [address] [place] [address] Dr. Valeria Farris Urea nitrogen [Mass/Vol] 10.0 mg/dL Normal 7.0-18.0 [facility] Comment on above: Performed By: #### P ROT24U #### [facility] [address] [place] [address] Dr. Valeria Farris Urea nitrogen/Creatinine [Mass ratio] 28.6 mg/mg Normal [facility] Comment on above: Performed By: #### P ROT24U #### [facility] [address] [place] [address] Dr. Valeria Farris PTTon 06-17-2022 aPTT Coag (Bld) [Time] 26.4 s Normal 22.3-36.2 [facility] Comment on above: Performed By: #### P REGQNT #### [facility] [address] [place] [address] Dr. Valeria Farris UA (CLEAN/CATCH) BIG 6 DEALER/MICRO I F IND.on 06-17-2022 Bilirubin Ql (U) Negative Normal NEGATIVE [facility] Comment on above: Performed By: #### P REGQNT #### [facility] [address] [place] [address] Dr. Valeria Farris Clarity (U) CLEAR Normal CLEAR [facility] Comment on above: Performed By: #### P REGQNT #### [facility] [address] [place] [address] Dr. Valeria Farris Color (U) LT. YELLOW Normal YELLOW [facility] Comment on above: Performed By: #### P REGQNT #### [facility] [address] [place] [address] Dr. Valeria Farris Glucose Ql (U) Negative Normal NEGATIVE [facility] Comment on above: Performed By: #### P REGQNT #### [facility] [address] [place] [address] Dr. Valeria Farris Hemoglobin Ql (U) Negative Normal NEGATIVE [facility] Comment on above: Performed By: #### P REGQNT #### [facility] [address] [address] [address] Valeria Farris Ketones Ql (U) Negative Normal NEGATIVE [facility] Comment on above: Performed By: #### P REGQNT #### [facility] [address] [address] [address] Valeria Farris LEUKOCYTES Negative Normal NEGATIVE [facility] Comment on above: Performed By: #### P REGQNT #### [facility] [address] [address] [address] Valeria Farris Nitrite Ql (U) Negative Normal NEGATIVE [facility] Comment on above: Performed By: #### P REGQNT #### [facility] [address] [place] [address] Dr. Valeria Farris pH (U) 6.5 [pH] Normal 5-9 [facility] Comment on above: Performed By: #### P REGQNT #### [facility] [address] [place] [address] Dr. Valeria Farris SPEC GRAVITY 1.010 Normal 1.005-<=1.02 5 [facility] Comment on above: Performed By: #### P REGQNT #### [facility] [address] [place] [address] Dr. Valeria Farris UA PROTEIN Negative Normal NEGATIVE/ TRACE [facility] Comment on above: Performed By: #### P REGQNT #### [facility] [address] [address] [address] Valeria Farris UR MICRO IND NOT INDICATED Normal [facility] Comment on above: Performed By: #### P REGQNT #### [facility] [address] [address] [address] Valeria Farris Urobilinogen Qn (U) 0.2 {Manolo'U}/dL Normal 0.2 - 1. 0 [facility] Comment on above: Performed By: #### P REGQNT #### [facility] [address] [place] [address] Dr. Valeria Farris URIC ACID SERUMon 06-17-2022 Urate [Mass/Vol] 3.3 mg/dL Normal 2.6-6.0 [facility] Comment on above: Performed By: #### P [id number] #### [facility] [address] [place] [address] Dr. Valeria Farris PAP ACOG PANEL 2: 30 to 65on 05-29-2022 . . Normal [facility] Comment on above: Result Comment: Perf ormed at: WB Performed By: #### 4 [id number] #### [facility] [address] [place] [address] Dr. Valeria Farris Age Gdln ACOG Testing 30-65 Normal [facility] Comment on above: Performed By: #### 4 [id number] #### [facility] [address] [place] [address] Dr. Valeria Farris DIAGNOSIS: Comment Normal [facility] Comment on above: Result Comment: NEGA TIVE FOR INTRAEPITHELIAL LESION OR MALIGNANCY. Performed at: WB Performed By: #### 4 [id number] #### [facility] [address] [place] [address] Dr. Valeria Farris HPV Aptima Negative Normal Negative [facility] Comment on above: Result Comment: This nucleic acid amplification test detects fourteen high-risk HPV types (16,18,31,33,35,39,45,51,52,56,58,59,66,68) without differentiation. Performed at: =G Performed By: #### 4 [id number] #### [facility] [address] [place] [address] Dr. Valeria Farris HPV Genotype Reflex Comment Normal [facility] Comment on above: Result Comment: Crit eria not met, HPV Genotype not performed. Performed at: WB Performed By: #### 4 [id number] #### [facility] [address] [place] [address] Dr. Valeria Farris Methodology: Comment Normal [facility] Comment on above: Result Comment: This liquid based ThinPrep(R) pap test was screened with the use of an image guided system. Performed at: WB Performed By: #### 4 [id number] #### [facility] [address] [place] [address] Dr. Valeria Farris Note: Comment Normal [facility] Comment on above: Result Comment: The Pap smear is a screening test designed to aid in the detection of premalignant and malignant conditions of the uterine cervix. It is not a diagnostic procedure and should not be used as the sole means of detecting cervical cancer. Both false-positive and false-negative reports do occur. . Performed at: WB Performed By: #### [id number] #### [facility] [address] [place] [address] Dr. Valeria Farris Performed by: Comment Normal [facility] Comment on above: Result Comment: Jaye Simmons, [place] (ASCP) Performed at: WB Performed By: #### 4 [id number] #### [facility] [address] [place] [address] Dr. Valeria Farris Specimen adequacy: Comment Normal [facility] Comment on above: Result Comment: Sati sfactory for evaluation. Performed at: WB Performed By: #### 4 [id number] #### [facility] [address] [place] [address] Dr. Valeria Farris POINT OF CARE GLUCOSEon 0 Glucose [Mass/Vol] 122 mg/dL Critically high 74-106 [facility] Comment on above: Performed By: #### U ACSIND, UMICRO #### [facility] [address] [place] [address] Dr. Valeria Farris UA (CLEAN/CATCH) BIG 6 DEALER/MICRO I F IND.on 05-29-2022 Bilirubin Ql (U) Negative Normal NEGATIVE [facility] Comment on above: Performed By: #### U ACSIND, UMICRO #### [facility] [address] [place] [address] Dr. Valeria Farris Clarity (U) CLEAR Normal CLEAR [facility] Comment on above: Performed By: #### U ACSIND, UMICRO #### [facility] [address] [place] [address] Dr. Valeria Farris Color (U) LT. YELLOW Normal YELLOW [facility] Comment on above: Performed By: #### U ACSIND, UMICRO #### [facility] [address] [address] [address] Valeria Farris Glucose Ql (U) Negative Normal NEGATIVE [facility] Comment on above: Performed By: #### U ACSIND, UMICRO #### [facility] [address] [address] [address] Valeria Farris Hemoglobin Ql (U) TRACE-INTACT Abnormal NEGATIVE [facility] Comment on above: Performed By: #### U ACSIND, UMICRO #### [facility] [address] [address] [address] Valeria Farris Ketones Ql (U) Negative Normal NEGATIVE [facility] Comment on above: Performed By: #### U ACSIND, UMICRO #### [facility] [address] [place] [address] Dr. Valeria Farris LEUKOCYTES Negative Normal NEGATIVE [facility] Comment on above: Performed By: #### U ACSIND, UMICRO #### [facility] [address] [place] [address] Dr. Valeria Farris Nitrite Ql (U) Negative Normal NEGATIVE [facility] Comment on above: Performed By: #### U ACSIND, ICRO #### [facility] [address] [place] [address] Dr. Valeria Farris pH (U) 5.5 [pH] Normal 5-9 [facility] Comment on above: Performed By: #### U ACSIND, UMICRO #### [facility] [address] [address] [address] Valeria Farris SPEC GRAVITY 1.010 Normal 1.005-<=1.02 5 [facility] Comment on above: Performed By: #### U ACSIND, UMICRO #### [facility] [address] [place] [address] Dr. Valeria Farris UA PROTEIN Negative Normal NEGATIVE/ TRACE [facility] Comment on above: Performed By: #### U ACSIND, UMICRO #### [facility] [address] [place] [address] Dr. Valeria Farris UR MICRO IND INDICATED Normal [facility] Comment on above: Performed By: #### U ACSIND, UMICRO #### [facility] [address] [place] [address] Dr. Valeria Farris Urobilinogen Qn (U) 0.2 {Manolo'U}/dL Normal 0.2 - 1. 0 [facility] Comment on above: Performed By: #### U ACSIND, UMICRO #### [facility] [address] [place] [address] Dr. Valeria Farris URINE MICROSCOPIC ONLYon BACTERIA NONE SEEN Normal NONE SEEN [facility] Comment on above: Performed By: #### U ACSIND, UMICRO #### [facility] [address] [place] [address] Dr. Valeria Farris Bacteria identified Cx Nom (U) NOT INDICATED Normal [facility] Comment on above: Performed By: #### U ACSIND, UMICRO #### [facility] [address] [place] [address] Dr. Valeria Farris CAST NONE SEEN Normal NONE SEEN [facility] Comment on above: Performed By: #### U ACSIND, UMICRO #### [facility] [address] [place] [address] Dr. Valeria Farris Crystals LM Nom (Urine sed) NONE SEEN Normal NONE SEEN [facility] Comment on above: Performed By: #### U ACSIND, UMICRO #### [facility] [address] [place] [address] Dr. Valeria Farris Epithelial cells LM Ql (Urine sed) FEW Abnormal NONE SEEN /RARE [facility] Comment on above: Performed By: #### U ACSIND, UMICRO #### [facility] [address] [place] [address] Dr. Valeria Farris MUCOUS NONE SEEN Normal NONE SEEN [facility] Comment on above: Performed By: #### U ACSIND, UMICRO #### [facility] [address] [place] [address] Dr. Valeria Farris RBC 0-2 Normal 0-2 [facility] Comment on above: Performed By: #### U ACSTRUPTI, UMICRO #### [facility] [address] [place] [address] Dr. Valeria Farris WBC NONE SEEN Normal NONE SEEN [facility] Comment on above: Performed By: #### U ACSTRUPTI, UMICRO #### [facility] [address] [place] [address] Dr. Valeria Farris CHLAMYDIA/GONOCOCCUS SARANYA (SW AB/URINE/PAPon 05-26-2022 Chlamydia trachomatis, SARANYA Negative Normal Negative [facility] Comment on above: Performed By: #### [id number] #### [facility] [address] [place] [address] Dr. Valeria Farris Neisseria gonorrhoeae, SARANYA Negative Normal Negative [facility] Comment on above: Performed By: #### [id number] #### [facility] [address] [place] [address] Dr. Valeria Farris AMYLASEon 05-25-2022 Amylase [Catalytic activity/Vol] 30 U/L Normal 25-115 [facility] Comment on above: Performed By: #### P [id number] #### [facility] [address] [place] [address] Dr. Valeria Farris CARDIAC VERNON 3-6on 3 CK [Catalytic activity/Vol] 119 U/L Normal 26-192 [facility] Comment on above: Performed By: #### P [id number] #### [facility] [address] [place] [address] Dr. Valeria Farris CK.MB [Mass/Vol] ng/mL Normal <=3.60 [facility] Comment on above: Performed By: #### P [id number] #### [facility] [address] [place] [address] Dr. Valeria Farris HSTROP <4.0 Normal 4.0-51.3 [facility] Comment on above: Result Comment: CUT- OFF POINTS HAVE BEEN ESTABLISHED BASED ON THE FOURTH UNIVERSAL DEFINITIONS OF MYOCARDIAL INFARCTION. THE UPPER REFERENCE LIMIT (URL) OF TROPONIN, DEFINED THE 99TH PERCENTILE OF cTnI DISTRIBUTION IN A REFERENCE POPULATION, HAS BEEN CONFIRMED THE DECISION THRESHOLD FOR ND DIAGNOSIS. Performed By: #### P [id number] #### [facility] [address] [address] [address] Valeria Farris CARDIAC VERNON ADMITon 023 CK [Catalytic activity/Vol] 121 U/L Normal 26-192 [facility] Comment on above: Performed By: #### P [id number] #### [facility] [address] [place] [address] Dr. Valeria Farris CK.MB [Mass/Vol] 0.51 ng/mL Normal <=3.60 [facility] Comment on above: Performed By: #### P [id number] #### [facility] [address] [place] [address] Dr. Valeria Farris HSTROP 4.1 pg/mL Normal 4.0-51.3 [facility] Comment on above: Result Comment: CUT- OFF POINTS HAVE BEEN ESTABLISHED BASED ON THE FOURTH UNIVERSAL DEFINITIONS OF MYOCARDIAL INFARCTION. THE UPPER REFERENCE LIMIT (URL) OF TROPONIN, DEFINED THE 99TH PERCENTILE OF cTnI DISTRIBUTION IN A REFERENCE POPULATION, HAS BEEN CONFIRMED THE DECISION THRESHOLD FOR ND DIAGNOSIS. Performed By: #### P [id number] #### [facility] [address] [place] [address] Dr. Valeria Farris MINI 19 ng/mL Normal 9-82 [facility] Comment on above: Performed By: #### P [id number] #### [facility] [address] [place] [address] Dr. Valeria Farris CBC AUTO DIFFon 05-25-2022 BASO # 0.0 103/ul Normal 0.0-0.1 [facility] Comment on above: Performed By: #### [id number] #### [facility] [address] [place] [address] Dr. Valeria Farris Basophils/100 WBC (Bld) 0.2 % Normal 0.2-2.0 [facility] Comment on above: Performed By: #### 4 [id number] #### [facility] [address] [place] [address] Dr. Valeria Farris EO # 0.1 103/ul Normal 0.0-0.7 [facility] Comment on above: Performed By: #### 4 [id number] #### [facility] [address] [place] [address] Dr. Valreia Farris Eosinophils/100 WBC (Bld) 0.8 % Critically low 0.9-7.0 [facility] Comment on above: Performed By: #### 4 [id number] #### [facility] [address] [place] [address] Dr. Valeria Farris Erythrocyte distribution width (RBC) [Ratio] 13.5 % Normal 11.0-15.0 [facility] Comment on above: Performed By: #### 4 [id number] #### [facility] [address] [place] [address] Dr. Valeria Farris Hematocrit (Bld) [Volume fraction] 30.4 % Critically low 36.0-48.0 [facility] Comment on above: Performed By: #### 4 [id number] #### [facility] [address] [place] [address] Dr. Valeria Farris Hemoglobin (Bld) [Mass/Vol] 9.8 g/dL Critically low 12.0-16.0 [facility] Comment on above: Performed By: #### 4 [id number] #### [facility] [address] [place] [address] Dr. Valeria Farris IG # 0.21 10e3/ul Critically high 0.00-0.03 [facility] Comment on above: Performed By: #### 4 [id number] #### [facility] [address] [place] [address] Dr. Valeria Farris IG % 1.6 % Critically high 0.0-0.5 [facility] Comment on above: Performed By: #### 4 [id number] #### [facility] [address] [place] [address] Dr. Valeria Farris LYMPH # 2.8 103/ul Normal 1.2-3.8 [facility] Comment on above: Performed By: #### 4 [id number] #### [facility] [address] [place] [address] Dr. Valeria Farris Lymphocytes/100 WBC (Bld) 21.3 % Normal 20.5-60.0 [facility] Comment on above: Performed By: #### 4 [id number] #### [facility] [address] [place] [address] Dr. Valeria Farris MANUAL DIFF REQ NO Normal [facility] Comment on above: Performed By: #### 4 [id number] #### [facility] [address] [place] [address] Dr. Valeria Farris MCH (RBC) [Entitic mass] 28.2 pg Normal 26.7-34.0 [facility] Comment on above: Performed By: #### 4 [id number] #### [facility] [address] [place] [address] Dr. Valeria Farris MCHC (RBC) [Mass/Vol] 32.2 g/dL Normal 29.9-35.2 [facility] Comment on above: Performed By: #### 4 [id number] #### [facility] [address] [place] [address] Dr. Valeria Farris MCV (RBC) [Entitic vol] 87.6 fL Normal 81.0-99.0 [facility] Comment on above: Performed By: #### 4 [id number] #### [facility] [address] [place] [address] Dr. Valeria Farris MONO # 0.9 103/ul Critically high 0.3-0.8 [facility] Comment on above: Performed By: #### 4 [id number] #### [facility] [address] [place] [address] Dr. Valeria Farris Monocytes/100 WBC (Bld) 6.8 % Normal 1.7-12.0 [facility] Comment on above: Performed By: #### 4 [id number] #### [facility] [address] [place] [address] Dr. Valeria Farris NEUT # 9.0 103/ul Critically high 1.4-6.5 [facility] Comment on above: Performed By: #### 4 [id number] #### [facility] [address] [place] [address] Dr. Valeria Farris Neutrophils/100 WBC (Bld) 69.3 % Normal 43.0-75.0 [facility] Comment on above: Performed By: #### 4 [id number] #### [facility] [address] [address] [address] Valeria Farris Platelet mean volume (Bld) [Entitic vol] 10.5 fL Normal 9.5-13.5 [facility] Comment on above: Performed By: #### 4 [id number] #### [facility] [address] [address] [address] Valeria Farris PLT 187 103/ul Normal 150-450 [facility] Comment on above: Performed By: #### 4 [id number] #### [facility] [address] [address] [address] Valeria Farris RBC 3.47 106/ul Critically low 4.20-5.40 [facility] Comment on above: Performed By: #### 4 [id number] #### [facility] [address] [address] [address] Valeria Farris WBC 13.0 103/ul Critically high 4.0-11.0 [facility] Comment on above: Performed By: #### 4 [id number] #### [facility] [address] [place] [address] Dr. Valeria Farris CTA CHEST WO W [...] Daryl LOPEZ Date: 2022-05-25 01:55 Normal [facility] CULTURE URINEon 05-25-2022 CULTURE URINE Culture Observations : HEAVY GROWTH OF MIXED GENITAL RIO. NO POTENTIAL PATHOGENS SEEN. Normal [facility] Comment on above: Performed By: #### 4 [id number] #### [facility] [address] [place] [address] Dr. Valeria Farris LIPASEon 05-25-2022 Lipase [Catalytic activity/Vol] 54.0 U/L Critically low 73.0-393.0 [facility] Comment on above: Performed By: #### P [id number] #### [facility] [address] [place] [address] Dr. Valeria Farris PROF 14(COMP METB)on 023 Albumin [Mass/Vol] 2.5 g/dL Critically low 3.4-5.0 [facility] Comment on above: Performed By: #### P [id number] #### [facility] [address] [place] [address] Dr. Valeria Farris Albumin/Globulin [Mass ratio] 0.6 {ratio} Normal [facility] Comment on above: Performed By: #### P [id number] #### [facility] [address] [place] [address] Dr. Valeria Farris ALP [Catalytic activity/Vol] 97 U/L Normal 46-116 [facility] Comment on above: Performed By: #### P [id number] #### [facility] [address] [place] [address] Dr. Valeria Farris ALT [Catalytic activity/Vol] 25 U/L Normal 14-59 [facility] Comment on above: Performed By: #### P [id number] #### [facility] [address] [address] [address] Valeria Farris Anion gap [Moles/Vol] 14.2 mmol/L Normal [facility] Comment on above: Performed By: #### P [id number] #### [facility] [address] [address] [address] Valeria Farris AST [Catalytic activity/Vol] 12 U/L Critically low 15-37 [facility] Comment on above: Performed By: #### P [id number] #### [facility] [address] [address] [address] Valeria Farris Bilirubin [Mass/Vol] 0.2 mg/dL Normal 0.2-1.0 [facility] Comment on above: Performed By: #### P [id number] #### [facility] [address] [address] [address] Valeria Farris Calcium [Mass/Vol] 8.5 mg/dL Normal 8.5-10.1 [facility] Comment on above: Performed By: #### P [id number] #### [facility] [address] [address] [address] Valeria Farris Chloride [Moles/Vol] 103 mmol/L Normal 98-107 [facility] Comment on above: Performed By: #### P [id number] #### [facility] [address] [address] [address] Valeria Farris CO2 [Moles/Vol] 23.0 mmol/L Normal 21.0-32.0 [facility] Comment on above: Performed By: #### P [id number] #### [facility] [address] [address] [address] Valeria Farris Creatinine [Mass/Vol] 0.39 mg/dL Critically low 0.55-1.02 [facility] Comment on above: Performed By: #### P [id number] #### [facility] [address] [address] [address] Valeria Farris EGFR-AF [place]ORE[place] >60 Normal >=60 [facility] Comment on above: Performed By: #### P [id number] #### [facility] [address] [address] [address] Valeria Farris EGFR-NON AF [place] >60 Normal >=60 [facility] Comment on above: Performed By: #### P [id number] #### [facility] [address] [address] [address] Valeria Farris Globulin (S) [Mass/Vol] 4.0 g/dL Normal [facility] Comment on above: Performed By: #### P [id number] #### [facility] [address] [address] [address] Valeria Farris Glucose [Mass/Vol] 113 mg/dL Critically high 74-106 [facility] Comment on above: Performed By: #### P ROT24U #### [facility] [address] [address] [address] Valeria Farris Potassium [Moles/Vol] 3.2 mmol/L Critically low 3.5-5.1 [facility] Comment on above: Performed By: #### P [id number] #### [facility] [address] [address] [address] Valeria Farris Protein [Mass/Vol] 6.5 g/dL Normal 6.4-8.2 [facility] Comment on above: Performed By: #### P ROT24U #### [facility] [address] [address] [address] Valeria Farris Sodium [Moles/Vol] 137 mmol/L Normal 136-145 [facility] Comment on above: Performed By: #### P ROT24U #### [facility] [address] [address] [address] Valeria Farris Urea nitrogen [Mass/Vol] 8.0 mg/dL Normal 7.0-18.0 [facility] Comment on above: Performed By: #### P [id number] #### [facility] [address] [address] [address] Valeria Farris Urea nitrogen/Creatinine [Mass ratio] 20.5 mg/mg Normal [facility] Comment on above: Performed By: #### P [id number] #### [facility] [address] [place] [address] Dr. Valeria Farris UA (CLEAN/CATCH) BIG 6 DEALER/MICRO I F IND.on 05-25-2022 Bilirubin Ql (U) Negative Normal NEGATIVE [facility] Comment on above: Performed By: #### G LU1HR #### [facility] [address] [place] [address] Dr. Valeria Farris Clarity (U) CLEAR Normal CLEAR [facility] Comment on above: Performed By: #### G LU1HR #### [facility] [address] [place] [address] Dr. Valeria Farris Color (U) YELLOW Normal YELLOW [facility] Comment on above: Performed By: #### G LU1HR #### [facility] [address] [place] [address] Dr. Valeria Farris Glucose Ql (U) Negative Normal NEGATIVE [facility] Comment on above: Performed By: #### G LU1HR #### [facility] [address] [place] [address] Dr. Valeria Farris Hemoglobin Ql (U) TRACE-INTACT Abnormal NEGATIVE [facility] Comment on above: Performed By: #### G LU1HR #### [facility] [address] [place] [address] Dr. Valeria Farris Ketones Ql (U) TRACE Abnormal NEGATIVE [facility] Comment on above: Performed By: #### G LU1HR #### [facility] [address] [place] [address] Dr. Valeria Farris LEUKOCYTES Negative Normal NEGATIVE [facility] Comment on above: Performed By: #### G LU1HR #### [facility] [address] [place] [address] Dr. Valeria Farris Nitrite Ql (U) Negative Normal NEGATIVE [facility] Comment on above: Performed By: #### G LU1HR #### [facility] [address] [place] [address] Dr. Valeria Farris pH (U) 6.0 [pH] Normal 5-9 [facility] Comment on above: Performed By: #### G LU1HR #### [facility] [address] [place] [address] Dr. Valeria Farris SPEC GRAVITY >=1.030 Abnormal 1.005-<=1.02 5 [facility] Comment on above: Performed By: #### G LU1HR #### [facility] [address] [place] [address] Dr. Valeria Farris UA PROTEIN Negative Normal NEGATIVE/ TRACE [facility] Comment on above: Performed By: #### G LU1HR #### [facility] [address] [place] [address] Dr. Valeria Farris UR MICRO IND INDICATED Normal [facility] Comment on above: Performed By: #### G LU1HR #### [facility] [address] [place] [address] Dr. Valeria Farris Urobilinogen Qn (U) 0.2 {Manolo'U}/dL Normal 0.2 - 1. 0 [facility] Comment on above: Performed By: #### G LU1HR #### [facility] [address] [place] [address] Dr. Valeria Farris URINE MICROSCOPIC ONLYon BACTERIA SMALL Abnormal NONE SEEN [facility] Comment on above: Performed By: #### G LU1HR #### [facility] [address] [place] [address] Dr. Valeria Farris Bacteria identified Cx Nom (U) INDICATED Normal [facility] Comment on above: Performed By: #### G LU1HR #### [facility] [address] [place] [address] Dr. Valeria Farris CA OX CRYSTALS FEW Normal [facility] Comment on above: Performed By: #### G LU1HR #### [facility] [address] [place] [address] Dr. Valeria Farris CAST NONE SEEN Normal NONE SEEN [facility] Comment on above: Performed By: #### G LU1HR #### [facility] [address] [place] [address] Dr. Valeria Farris Crystals LM Nom (Urine sed) SEEN Abnormal NONE SEEN [facility] Comment on above: Performed By: #### G LU1HR #### [facility] [address] [place] [address] Dr. Valeria Farris Epithelial cells LM Ql (Urine sed) MANY Abnormal NONE SEEN /RARE [facility] Comment on above: Performed By: #### G LU1HR #### [facility] [address] [place] [address] Dr. Valeria Farris MUCOUS TRACE Abnormal NONE SEEN [facility] Comment on above: Performed By: #### G LU1HR #### [facility] [address] [place] [address] Dr. Valeria Farris RBC 2-5 Abnormal 0-2 [facility] Comment on above: Performed By: #### G LU1HR #### [facility] [address] [place] [address] Dr. Valeria Farris WBC NONE SEEN Normal NONE SEEN [facility] Comment on above: Performed By: #### G LU1HR #### [facility] [address] [place] [address] Dr. Valeria Farris VAGINITIS/VAGINOSIS DNA PROB Sam 05-25-2022 Litzy species Negative Normal Negative [facility] Comment on above: Performed By: #### P REGQNT #### [facility] [address] [place] [address] Dr. Valeria Farris Gardnerella vaginalis Positive Abnormal Negative [facility] Comment on above: Performed By: #### P REGQNT #### [facility] [address] [place] [address] Dr. Valeria Farris Trichomonas vaginalis Negative Normal Negative [facility] Comment on above: Performed By: #### P REGQNT #### [facility] [address] [place] [address] Dr. Valeria Farris UA (CLEAN/CATCH) BIG 6 DEALER/MICRO I F IND.on 05-04-2022 Bilirubin Ql (U) Negative Normal NEGATIVE [facility] Comment on above: Performed By: #### P REGQNT #### [facility] [address] [place], [place] [id number] Dr. Valeria Farris Clarity (U) CLEAR Normal CLEAR [facility] Comment on above: Performed By: #### P REGQNT #### [facility] [address] [place] [address] Dr. Valeria Farris Color (U) LT. YELLOW Normal YELLOW [facility] Comment on above: Performed By: #### P REGQNT #### [facility] [address] [place] [address] Dr. Valeria Farris Glucose Ql (U) Negative Normal NEGATIVE [facility] Comment on above: Performed By: #### P REGQNT #### [facility] [address] [place] [address] Dr. Valeria Farris Hemoglobin Ql (U) SMALL Abnormal NEGATIVE [facility] Comment on above: Performed By: #### P REGQNT #### [facility] [address] [place] [address] Dr. Valeria Farris Ketones Ql (U) TRACE Abnormal NEGATIVE [facility] Comment on above: Performed By: #### P REGQNT #### [facility] [address] [place] [address] Dr. Valeria Farris LEUKOCYTES Negative Normal NEGATIVE [facility] Comment on above: Performed By: #### P REGQNT #### [facility] [address] [place] [address] Dr. Valeria Farris Nitrite Ql (U) Negative Normal NEGATIVE [facility] Comment on above: Performed By: #### P REGQNT #### [facility] [address] [place] [address] Dr. Valeria Farris pH (U) 6.5 [pH] Normal 5-9 [facility] Comment on above: Performed By: #### P REGQNT #### [facility] [address] [place] [address] Dr. Valeria Farris SPEC GRAVITY 1.025 Normal 1.005-<=1.02 5 [facility] Comment on above: Performed By: #### P REGQNT #### [facility] [address] [place] [address] Dr. Valeria Farris UA PROTEIN Negative Normal NEGATIVE/ TRACE [facility] Comment on above: Performed By: #### P REGQNT #### [facility] [address] [place] [address] Dr. Valeria Farris UR MICRO IND INDICATED Normal [facility] Comment on above: Performed By: #### P REGQNT #### [facility] [address] [place] [address] Dr. Valeria Farris Urobilinogen Qn (U) 0.2 {Manolo'U}/dL Normal 0.2 - 1. 0 [facility] Comment on above: Performed By: #### P REGQNT #### [facility] [address] [place] [address] Dr. Valeria Farris URINE MICROSCOPIC ONLYon BACTERIA NONE SEEN Normal NONE SEEN [facility] Comment on above: Performed By: #### U ACSIND, UMICRO #### [facility] [address] [place] [address] Dr. Valeria Farris Bacteria identified Cx Nom (U) NOT INDICATED Normal [facility] Comment on above: Performed By: #### U ACSIND, UMICRO #### [facility] [address] [place] [address] Dr. Valeria Farris CAST NONE SEEN Normal NONE SEEN [facility] Comment on above: Performed By: #### U ACSIND, UMICRO #### [facility] [address] [place] [address] Dr. Valeria Farris Crystals LM Nom (Urine sed) NONE SEEN Normal NONE SEEN [facility] Comment on above: Performed By: #### U ACSIND, UMICRO #### [facility] Laboratory [address] [place] [address] Dr. Valeria Farris Epithelial cells LM Ql (Urine sed) FEW Abnormal NONE SEEN /RARE [facility] Comment on above: Performed By: #### U ACSIND, UMICRO #### [facility] [address] [place] [address] Dr. Valeria Farris MUCOUS TRACE Abnormal NONE SEEN [facility] Comment on above: Performed By: #### U ACSIND, UMICRO #### [facility] [address] [place] [address] Dr. Valeria Farris RBC 0-2 Normal 0-2 [facility] Comment on above: Performed By: #### U ACSZAID LYLESICRO #### [facility] [address] [place] [address] Dr. Valeria Farris WBC NONE SEEN Normal NONE SEEN [facility] Comment on above: Performed By: #### U [facility]PTI [facility] #### [facility] [address] [place] [address] Dr. Valeria Farris AMYLASEon 04-12-2022 Amylase [Catalytic activity/Vol] 31 U/L Normal 25-115 [facility] Comment on above: Performed By: #### G LU1HR #### [facility] [address] [place] [address] Dr. Valeria Farris BUNon 04-12-2022 Urea nitrogen [Mass/Vol] 7.0 mg/dL Normal 7.0-18.0 [facility] Comment on above: Performed By: #### G LU1HR #### [facility] [address] [place] [address] Dr. Valeria Farris CBC AUTO DIFFon 04-12-2022 BASO # 0.0 103/ul Normal 0.0-0.1 [facility] Comment on above: Performed By: #### P REGQNT #### [facility] [address] [place] [address] Dr. Valeria Farris Basophils/100 WBC (Bld) 0.3 % Normal 0.2-2.0 [facility] Comment on above: Performed By: #### P REGQNT #### [facility] [address] [place] [address] Dr. Valeria Farris EO # 0.3 103/ul Normal 0.0-0.7 [facility] Comment on above: Performed By: #### P REGQNT #### [facility] [address] [place] [address] Dr. Valeria Farris Eosinophils/100 WBC (Bld) 2.3 % Normal 0.9-7.0 [facility] Comment on above: Performed By: #### P REGQNT #### [facility] [address] [address] [address] Valeria Farris Erythrocyte distribution width (RBC) [Ratio] 12.8 % Normal 11.0-15.0 [facility] Comment on above: Performed By: #### P REGQNT #### [facility] [address] [place] [address] Dr. Valeria Farris Hematocrit (Bld) [Volume fraction] 34.9 % Critically low 36.0-48.0 [facility] Comment on above: Performed By: #### P REGQNT #### [facility] [address] [address] [address] Valeria Farris Hemoglobin (Bld) [Mass/Vol] 11.8 g/dL Critically low 12.0-16.0 [facility] Comment on above: Performed By: #### P REGQNT #### [facility] [address] [place] [address] Dr. Valeria Farris IG # 0.08 10e3/ul Critically high 0.00-0.03 [facility] Comment on above: Performed By: #### P REGQNT #### [facility] [address] [place] [address] Dr. Valeria Farris IG % 0.7 % Critically high 0.0-0.5 [facility] Comment on above: Performed By: #### P REGQNT #### [facility] [address] [address] [address] Valeria Farris LYMPH # 2.6 103/ul Normal 1.2-3.8 [facility] Comment on above: Performed By: #### P REGQNT #### [facility] [address] [place] [address] Dr. Valeria Farris Lymphocytes/100 WBC (Bld) 22.4 % Normal 20.5-60.0 [facility] Comment on above: Performed By: #### P REGQNT #### [facility] [address] [place] [address] Dr. Valeria Farris MANUAL DIFF REQ NO Normal [facility] Comment on above: Performed By: #### P REGQNT #### [facility] [address] [place] [address] Dr. Valeria Farris MCH (RBC) [Entitic mass] 28.5 pg Normal 26.7-34.0 [facility] Comment on above: Performed By: #### P REGQNT #### [facility] [address] [place] [address] Dr. Valeria Farris MCHC (RBC) [Mass/Vol] 33.8 g/dL Normal 29.9-35.2 [facility] Comment on above: Performed By: #### P REGQNT #### [facility] [address] [place] [address] Dr. Valeria Farris MCV (RBC) [Entitic vol] 84.3 fL Normal 81.0-99.0 [facility] Comment on above: Performed By: #### P REGQNT #### [facility] [address] [place] [address] Dr. Valeria Farris MONO # 0.8 103/ul Normal 0.3-0.8 [facility] Comment on above: Performed By: #### P REGQNT #### [facility] [address] [place] [address] Dr. Valeria Farris Monocytes/100 WBC (Bld) 6.8 % Normal 1.7-12.0 [facility] Comment on above: Performed By: #### P REGQNT #### [facility] [address] [place] [address] Dr. Valeria Farris NEUT # 7.8 103/ul Critically high 1.4-6.5 [facility] Comment on above: Performed By: #### P REGQNT #### [facility] [address] [place] [address] Dr. Valeria Farris Neutrophils/100 WBC (Bld) 67.5 % Normal 43.0-75.0 [facility] Comment on above: Performed By: #### P REGQNT #### [facility] [address] [place] [address] Dr. Valeria Farris Platelet mean volume (Bld) [Entitic vol] 10.3 fL Normal 9.5-13.5 [facility] Comment on above: Performed By: #### P REGQNT #### [facility] [address] [place] [address] Dr. Valeria Farris PLT 195 103/ul Normal 150-450 [facility] Comment on above: Performed By: #### P REGQNT #### [facility] [address] [place] [address] Dr. Valeria Farris RBC 4.14 106/ul Critically low 4.20-5.40 [facility] Comment on above: Performed By: #### P REGQNT #### [facility] [address] [place] [address] Dr. Valeria Farris WBC 11.5 103/ul Critically high 4.0-11.0 [facility] Comment on above: Performed By: #### P REGQNT #### [facility] [address] [place] [address] Dr. Valeria Farris CREATININEon 04-12-2022 Creatinine [Mass/Vol] 0.44 mg/dL Critically low 0.55-1.02 [facility] Comment on above: Performed By: #### G LU1HR #### [facility] [address] [place] [address] Dr. Valeria Farris EGFR-AF [place] >60 Normal >=60 [facility] Comment on above: Performed By: #### G LU1HR #### [facility] [address] [place] [address] Dr. Valeria Farris EGFR-NON AF [place] >60 Normal >=60 [facility] Comment on above: Performed By: #### G LU1HR #### [facility] [address] [place] [address] Dr. Valeria Farris LIPASEon 04-12-2022 Lipase [Catalytic activity/Vol] 62.0 U/L Critically low 73.0-393.0 [facility] Comment on above: Performed By: #### G LU1HR #### [facility] [address] [place] [address] Dr. Valeria Farris LIVER PROFILEon 04-12-2022 Albumin [Mass/Vol] 2.9 g/dL Critically low 3.4-5.0 [facility] Comment on above: Performed By: #### G LU1HR #### [facility] [address] [address] [address] Valeria Farris Albumin/Globulin [Mass ratio] 0.7 {ratio} Normal [facility] Comment on above: Performed By: #### G LU1HR #### [facility] [address] [address] [address] Valeria Farris ALP [Catalytic activity/Vol] 86 U/L Normal 46-116 [facility] Comment on above: Performed By: #### G LU1HR #### [facility] [address] [place] [address] Dr. Valeria Farris ALT [Catalytic activity/Vol] 14 U/L Normal 14-59 [facility] Comment on above: Performed By: #### G LU1HR #### [facility] [address] [place] [address] Dr. Valeria Farris AST [Catalytic activity/Vol] 12 U/L Critically low 15-37 [facility] Comment on above: Performed By: #### G LU1HR #### [facility] [address] [place] [address] Dr. Valeria Farris BILI, CONJUGATED 0.1 mg/dL Normal 0.0-0.2 [facility] Comment on above: Performed By: #### G LU1HR #### [facility] [address] [address] [address] Valeria Farris Bilirubin [Mass/Vol] 0.2 mg/dL Normal 0.2-1.0 [facility] Comment on above: Performed By: #### G LU1HR #### [facility] [address] [place] [address] Dr. Valeria Farris Globulin (S) [Mass/Vol] 4.2 g/dL Normal [facility] Comment on above: Performed By: #### G LU1HR #### [facility] [address] [address] [address] Valeria Farris Protein [Mass/Vol] 7.1 g/dL Normal 6.4-8.2 [facility] Comment on above: Performed By: #### G LU1HR #### [facility] [address] [place] [address] Dr. Valeria Farris PROF 14(COMP METB)on 022 Anion gap [Moles/Vol] 13.1 mmol/L Normal [facility] Comment on above: Performed By: #### G LU1HR #### [facility] [address] [address] [address] Valeria Farris Calcium [Mass/Vol] 8.7 mg/dL Normal 8.5-10.1 [facility] Comment on above: Performed By: #### G LU1HR #### [facility] [address] [place] [address] Dr. Valeria Farris Chloride [Moles/Vol] 100 mmol/L Normal 98-107 [facility] Comment on above: Performed By: #### G LU1HR #### [facility] [address] [address] [address] Valeria Farris CO2 [Moles/Vol] 25.4 mmol/L Normal 21.0-32.0 [facility] Comment on above: Performed By: #### G LU1HR #### [facility] [address] [place] [address] Dr. Valeria Farris Glucose [Mass/Vol] 87 mg/dL Normal 74-106 [facility] Comment on above: Performed By: #### G LU1HR #### [facility] [address] [address] [address] Valeria Farris Potassium [Moles/Vol] 3.5 mmol/L Normal 3.5-5.1 [facility] Comment on above: Performed By: #### G LU1HR #### [facility] [address] [address] [address] Valeria Farris Sodium [Moles/Vol] 135 mmol/L Critically low 136-145 [facility] Comment on above: Performed By: #### G LU1HR #### [facility] [address] [address] [address] Valeria Farris Urea nitrogen/Creatinine [Mass ratio] 15.9 mg/mg Normal [facility] Comment on above: Performed By: #### G LU1HR #### [facility] [address] [address] [address] Valeria Farris US PREG CERVICAL LENGTHon [...] GERARD GONZALEZ Date: 2022-04-12 16:39 Normal [facility] UA (CLEAN/CATCH) BIG 6 DEALER/MICRO I F IND.on 04-11-2022 Bilirubin Ql (U) Negative Normal NEGATIVE [facility] Comment on above: Performed By: #### U LETI UMICRO #### [facility] [address] [place] [address] Dr. Valeria Farris Clarity (U) CLEAR Normal CLEAR [facility] Comment on above: Performed By: #### U ACSTRUPTI UMICRO #### [facility] [address] [address] [address] Valeria Farris Color (U) LT. YELLOW Normal YELLOW [facility] Comment on above: Performed By: #### U ACSTRUPTI UMICRO #### [facility] [address] [place] [address] Dr. Valeria Farris Glucose Ql (U) Negative Normal NEGATIVE [facility] Comment on above: Performed By: #### U ACSTRUPTI UMICRO #### [facility] [address] [place] [address] Dr. Valeria Farris Hemoglobin Ql (U) TRACE-INTACT Abnormal NEGATIVE [facility] Comment on above: Performed By: #### U ACSIND, UMICRO #### [facility] [address] [address] [address] Valeria Farris Ketones Ql (U) Negative Normal NEGATIVE [facility] Comment on above: Performed By: #### U ACSIND, UMICRO #### [facility] [address] [place] [address] Dr. Valeria Farris LEUKOCYTES Negative Normal NEGATIVE [facility] Comment on above: Performed By: #### U ACSIND, UMICRO #### [facility] [address] [address] [address] Valeria Farris Nitrite Ql (U) Negative Normal NEGATIVE [facility] Comment on above: Performed By: #### U ACSIND, UMICRO #### [facility] [address] [place] [address] Dr. Valeria Farris pH (U) 6.5 [pH] Normal 5-9 [facility] Comment on above: Performed By: #### U ACSTRUPTI, UMICRO #### [facility] [address] [place] [address] Dr. Valeria Farris SPEC GRAVITY 1.010 Normal 1.005-<=1.02 5 [facility] Comment on above: Performed By: #### U ACSTRUPTI, UMICRO #### [facility] [address] [place] [address] Dr. Valeria Farris UA PROTEIN Negative Normal NEGATIVE/ TRACE [facility] Comment on above: Performed By: #### U ACSTRUPTI, UMICRO #### [facility] [address] [place] [address] Dr. Valeria Farris UR MICRO IND INDICATED Normal [facility] Comment on above: Performed By: #### U ACSTRUPTI, UMICRO #### [facility] [address] [place] [address] Dr. Valeria Farris Urobilinogen Qn (U) 0.2 {Manolo'U}/dL Normal 0.2 - 1. 0 [facility] Comment on above: Performed By: #### U ACSIND, UMICRO #### [facility] [address] [address] [address] Valeria Farris URINE MICROSCOPIC ONLYon BACTERIA NONE SEEN Normal NONE SEEN [facility] Comment on above: Performed By: #### U ACSTRUPTI, UMICRO #### [facility] [address] [address] [address] Valeria Farris Bacteria identified Cx Nom (U) NOT INDICATED Normal [facility] Comment on above: Performed By: #### U ACSIND, UMICRO #### [facility] [address] [place] [address] Dr. Valeria Farris CAST NONE SEEN Normal NONE SEEN [facility] Comment on above: Performed By: #### U ACSIND, UMICRO #### [facility] [address] [place] [address] Dr. Valeria Farris Crystals LM Nom (Urine sed) NONE SEEN Normal NONE SEEN [facility] Comment on above: Performed By: #### U ACSTRUPTI, UMICRO #### [facility] [address] [place] [address] Dr. Valeria Farris Epithelial cells LM Ql (Urine sed) FEW Abnormal NONE SEEN /RARE [facility] Comment on above: Performed By: #### U ACSTRUPTI, UMICRO #### [facility] [address] [place] [address] Dr. Valeria Farris MUCOUS NONE SEEN Normal NONE SEEN [facility] Comment on above: Performed By: #### U ACSTRUPTI UMICRO #### [facility] [address] [place] [address] Dr. Valeria Farris RBC 0-2 Normal 0-2 [facility] Comment on above: Performed By: #### U ACSTRUPTI UMICRO #### [facility] [address] [place] [address] Dr. Valeria Farris WBC 0-2 Abnormal NONE SEEN [facility] Comment on above: Performed By: #### U ACSTRUPTI, UMICRO #### [facility] [address] [place] [address] Dr. Valeria Farris US PREG ANATOMY SINGLEon [...] ALINE GALICIA Date: 2022-03-28 10:57 Normal [facility] XR SHOULDER RT 2V or >on XR SHOULDER RT 2V or > EXAM: XR SHOULDER RT 2V or > INDICATION: Pain. COMPARISON: None. TECHNIQUE: Right shoulder, 3 views. FINDINGS: No acute fracture or dislocation. Intact glenohumeral and acromioclavicular joints. Unremarkable soft tissues. IMPRESSION: Normal right shoulder. Electronically authenticated by: GILDARDO TAYLOR Date: 2022-03-19 08:36 Normal [facility] AFP TETRA PROFILE (MATERNAL) on 03-08-2022 AFP MoM 0.60 Normal [facility] Comment on above: Performed By: #### U LETI UMICRO #### [facility] [address] [address] [address] Valeria Farris AFP Value 15.2 ng/mL Normal [facility] Comment on above: Performed By: #### U LETI UMICRO #### [facility] [address] [address] [address] Valeria Farris Comment Comment Normal [facility] Comment on above: Result Comment: Nicolás Ramirez, Ph.D., [facility] Director . References: Available Upon Request. . Multiples Of Median Cutoffs Abbreviation Definitions For AFP Elevations IDD- Insulin Dep Diabetes Rodriguez 2.5 Black 2.8 OSBR- Open Spina Bifida IDD 2.0 Twins 4.5 Risk DSR Cutoff 1:270 DSR- Down Syndrome Risk T18 Cutoff 1:100 T18- Trisomy 18 . For further inquiries contact [employer] [facility] at [phone]. . This test was developed and its performance characteristics determined by [employer]. It has not been cleared or approved by the Food and Drug Administration. Performed By: #### U LETI UMICRO #### [facility] [address] [address] [address] Valeria Farris CHACE MoM 0.90 Normal [facility] Comment on above: Performed By: #### U LETI UMICRO #### [facility] [address] [address] [address] Valeria Farris CHACE Value 95.93 pg/mL Normal [facility] Comment on above: Performed By: #### U LETI UMICRO #### [facility] [address] [address] [address] Valeria Farris DSR (By Age) 1 IN 656 Normal [facility] Comment on above: Performed By: #### U LETI UMICRO #### [facility] [address] [address] [address] Valeria Farris DSR (Second Trimester) 1 [place] 5782 Normal [facility] Comment on above: Performed By: #### U LETI UMICRO #### [facility] [address] [address] [address] Valeria Archibald. Age on Collection Date 16.7 WEEKS Normal [facility] Comment on above: Performed By: #### U LETI UMICRO #### [facility] [address] [address] [address] Valeria Archibaldat. Age Based On SUNSHINE Normal [facility] Comment on above: Result Comment: 07/23 Performed By: #### U ACSTRUPTI UMICRO #### [facility] [address] [address] [address] Valeria aFrris hCG MoM 0.61 Normal [facility] Comment on above: Performed By: #### U LETI UMICRO #### [facility] [address] [address] [place] [address] m[IU]/mL Normal [facility] Comment on above: Performed By: #### U LETI UMICRO #### [facility] [address] [address] [address] Valeria Farris Insulin Dep Diabetes No Normal [facility] Comment on above: Performed By: #### U ACSTRUPTI UMICRO #### [facility] [address] [address] [address] Valeria Farris Interpretation Comment Normal [facility] Comment on above: Result Comment: Inte [...] identifies 60% of Trisomy 18 pregnancies. The [employer] recommends amniocentesis be offered to women age 35 and older. Recalculations are not recommended when gestational dating by LMP and ultrasound are within 10 days. Performed By: #### U ACSIND, UMICRO #### [facility] [address] [address] [address] Valeria Farris Maternal Age At SUNSHINE 32.[address] [facility] Comment on above: Performed By: #### U ACSIND, UMICRO #### [facility] [address] [address] [address] Valeria Farris Multiple Gestation No Normal [facility] Comment on above: Performed By: #### U ACSIND, UMICRO #### [facility] [address] [address] [address] Valeria Farris [place] [address] Normal [facility] Comment on above: Performed By: #### U ACSIND, UMICRO #### [facility] [address] [address] [address] Valeria Farris PDF . [facility] Comment on above: Performed By: #### U ACSTRUPTI, UMICRO #### [facility] [address] [address] [address] Valeria Farris Race [facility] Comment on above: Performed By: #### U ACSTRUPTI, UMICRO #### [facility] [address] [address] [address] Valeria Farris Results Report [facility] Comment on above: Performed By: #### U ACSIND, UMICRO #### [facility] [address] [address] [address] Valeria Farris T18 (By Age) 1:2556 Normal [facility] Comment on above: Performed By: #### U ACSIND, UMICRO #### [facility] [address] [address] [address] Valeria Farris T18 Risk Not increased [facility] Comment on above: Performed By: #### U ACSIND, UMICRO #### [facility] [address] [address] [address] Valeria Farris Test Results: Negative Normal [facility] Comment on above: Performed By: #### U ACSIND, UMICRO #### [facility] [address] [address] [address] Valeria Farris uE3 MoM 0.75 Normal [facility] Comment on above: Performed By: #### U DAPHNE LANDEROS #### [facility] [address] [address] [address] Valeria Farris uE3 Value 0.71 ng/mL Normal [facility] Comment on above: Performed By: #### U ALEX LANDEROSRO #### [facility] [address] [place] [address] Dr. Valeria Farris GLUCOSE - 1HRon 03-03-2022 Glucose [Mass/Vol] 214 mg/dL Critically high 74-106 T [facility] Comment on above: Performed By: #### G LU1HR #### [facility] [address] [place] [address] Dr. Valeria Farris HEPATITIS C VIRUS AB W/ REFL EX QUANTon 01-11-2022 HCV AB <0.1 Normal 0.0-0.9 [facility] Comment on above: Performed By: #### P REGQNT #### [facility] [address] [place] [address] Dr. Valeria Farris Interpretation: Comment Normal [facility] Comment on above: Result Comment: Nega tive Not infected with HCV, unless recent infection is suspected or other evidence exists to indicate HCV infection. Performed By: #### P REGQNT #### [facility] [address] [place] [address] Dr. Valeria Farris HEP B SURFACE ANTIGEN SCREEN on 01-10-2022 HBsAg Screen Negative Normal Negative [facility] Comment on above: Performed By: #### P REGQNT #### [facility] [address] [place] [address] Dr. Valeria Farris HIV 1 AND 2 WITH REFLEXon HIV Screen 4th Generation wRfx Non-Reactive Normal Non Reactive [facility] Comment on above: Result Comment: HIV Negative HIV-1/HIV-2 antibodies and HIV-1 p24 antigen were NOT detected. There is no laboratory evidence of HIV infection. Performed By: #### H IV12 #### [facility] [address] [place] [address] Dr. Valeria Farris RPR QUANTon 01-10-2022 Rapid Plasma Reagin, Quant Non-Reactive Normal NonRea<1:1 [facility] Comment on above: Result Comment: [place] palomo Note: This test does not meet current guidelines for screening and diagnosis of syphilis. This test is intended for following treatment response in patients being treated for syphilis infection. To screen for syphilis infection, a reflex cascade that includes both RPR and a treponema-specific assay should be utilized, such as Treponema pallidum (Syphilis) Screening [place] (823930) or Rapid Plasma Reagin (RPR) Test With Reflex to Quantitative RPR and Confirmatory Treponema pallidum Antibodies (974068). Performed By: #### R PRQ #### [facility] [address] [place] [address] Dr. Valeria Farris RUBELLA AB IGGon 01-10-2022 Rubella Antibodies, IgG 1.83 index Normal Immune >0.99 [facility] Comment on above: Result Comment: Non- immune <0.90 Equivocal 0.90 - 0.99 Immune >0.99 Performed By: #### U ACSIND, UMICRO #### [facility] [address] [place] [address] Dr. Valeria Farris CBC AUTO DIFFon 01-09-2022 BASO # 0.0 103/ul Normal 0.0-0.1 [facility] Comment on above: Performed By: #### [id number] #### [facility] [address] [place] [address] Dr. Valeria Farris Basophils/100 WBC (Bld) 0.4 % Normal 0.2-2.0 [facility] Comment on above: Performed By: #### [id number] #### [facility] [address] [place] [address] Dr. Valeria Farris EO # 0.3 103/ul Normal 0.0-0.7 [facility] Comment on above: Performed By: #### 4 [id number] #### [facility] [address] [place] [address] Dr. Valeria Farris Eosinophils/100 WBC (Bld) 3.5 % Normal 0.9-7.0 [facility] Comment on above: Performed By: #### 4 [id number] #### [facility] [address] [place] [address] Dr. Valeria Farris Erythrocyte distribution width (RBC) [Ratio] 13.6 % Normal 11.0-15.0 [facility] Comment on above: Performed By: #### 4 [id number] #### [facility] [address] [place] [address] Dr. Valeria Farris Hematocrit (Bld) [Volume fraction] 38.9 % Normal 36.0-48.0 [facility] Comment on above: Performed By: #### 4 [id number] #### [facility] [address] [place] [address] Dr. Valeria Farris Hemoglobin (Bld) [Mass/Vol] 12.9 g/dL Normal 12.0-16.0 [facility] Comment on above: Performed By: #### 4 [id number] #### [facility] [address] [place] [address] Dr. Valeria Farris IG # 0.04 10e3/ul Critically high 0.00-0.03 [facility] Comment on above: Performed By: #### 4 [id number] #### [facility] [address] [place] [address] Dr. Valeria Farris IG % 0.4 % Normal 0.0-0.5 [facility] Comment on above: Performed By: #### 4 [id number] #### [facility] [address] [place] [address] Dr. Valeria Farris LYMPH # 2.1 103/ul Normal 1.2-3.8 [facility] Comment on above: Performed By: #### 4 [id number] #### [facility] [address] [place] [address] Dr. Valeria Farris Lymphocytes/100 WBC (Bld) 21.5 % Normal 20.5-60.0 [facility] Comment on above: Performed By: #### 4 [id number] #### [facility] [address] [place] [address] Dr. Valeria Farris MANUAL DIFF REQ NO Normal [facility] Comment on above: Performed By: #### 4 [id number] #### [facility] [address] [place] [address] Dr. Valeria Farris MCH (RBC) [Entitic mass] 27.9 pg Normal 26.7-34.0 [facility] Comment on above: Performed By: #### 4 [id number] #### [facility] [address] [place] [address] Dr. Valeria Farris MCHC (RBC) [Mass/Vol] 33.2 g/dL Normal 29.9-35.2 [facility] Comment on above: Performed By: #### 4 [id number] #### [facility] [address] [place] [address] Dr. Valeria Farris MCV (RBC) [Entitic vol] 84.0 fL Normal 81.0-99.0 [facility] Comment on above: Performed By: #### 4 [id number] #### [facility] [address] [place] [address] Dr. Valeria Farris MONO # 0.6 103/ul Normal 0.3-0.8 [facility] Comment on above: Performed By: #### 4 [id number] #### [facility] [address] [place] [address] Dr. Valeria Farris Monocytes/100 WBC (Bld) 5.6 % Normal 1.7-12.0 [facility] Comment on above: Performed By: #### 4 [id number] #### [facility] [address] [place] [address] Dr. Valeria Farris NEUT # 6.7 103/ul Critically high 1.4-6.5 [facility] Comment on above: Performed By: #### 4 [id number] #### [facility] [address] [place] [address] Dr. Valeria Farris Neutrophils/100 WBC (Bld) 68.6 % Normal 43.0-75.0 [facility] Comment on above: Performed By: #### 4 [id number] #### [facility] [address] [place] [address] Dr. Valeria Farris Platelet mean volume (Bld) [Entitic vol] 9.9 fL Normal 9.5-13.5 [facility] Comment on above: Performed By: #### 4 [id number] #### [facility] [address] [address] [address] Valeria Farris PLT 244 103/ul Normal 150-450 [facility] Comment on above: Performed By: #### 4 [id number] #### [facility] [address] [address] [address] Valeria Farris RBC 4.63 106/ul Normal 4.20-5.40 [facility] Comment on above: Performed By: #### 4 [id number] #### [facility] [address] [address] [address] Valeria Farris WBC 9.7 103/ul Normal 4.0-11.0 [facility] Comment on above: Performed By: #### 4 [id number] #### [facility] [address] [address] [address] Valeria Farris CULTURE URINEon 01-09-2022 CULTURE URINE Culture Observations : MODERATE GROWTH OF MIXED GENITAL RIO. NO POTENTIAL PATHOGENS SEEN. Normal [facility] Comment on above: Performed By: #### U RCX #### [facility] [address] [address] [address] Valeria Farris GLYCOHEMOGLOBIN A1Con 2021 ADA RECOMMENDATION SEE BELOW Normal [facility] Comment on above: Result Comment: ADA RECOMMENDED LIMIT 4.0 - 6.0 ADA THERAPEUTIC TARGET < 7.0 ACTION SUGGESTED > 7.0 Performed By: #### P REGQNT #### [facility] [address] [address] [address] Valeria Farris Glucose [Mass/Vol] 111 mg/dL Normal [facility] Comment on above: Performed By: #### P REGQNT #### [facility] [address] [address] [address] Valeria Farris HbA1c (Bld) [Mass fraction] 5.5 % Normal 4.5-6.2 [facility] Comment on above: Performed By: #### P REGQNT #### [facility] [address] [address] [address] Valeria Farris LETHA BOX TEST PT SEND OUTo n 01-09-2022 SENT TO REF LAB 01/09/2022 Normal [facility] Comment on above: Performed By: #### N BOX #### [facility] [id number] Valeria Farris TYPE AND SCREENon 01-09-2022 TYPE AND SCREEN Negative Normal [facility] Comment on above: Performed By: #### 4 [id number] #### [facility] [address] [address] [address] Valeria Farris US PREG TVon 12-30-2021 [...] GERARD GONZALEZ Date: 2021-12-30 17:14 Normal [facility] US PREG TVon 12-15-2021 US PREG [...] GERARD GONZALEZ Date: 2021-12-14 22:02 Normal [facility] HCG-BETA SUBUNIT QUANTon hCG,Beta Subunit,Qnt,Serum 571 mIU/mL Normal [facility] Comment on above: Result Comment: Fema le (Non-) 0 - 5 (Postmenopausal) 0 - 8 . Female () Weeks of Gestation 3 6 - 71 4 10 - 750 5 217 - 7138 6 158 - 75155 7 3697 -305312 8 40228 -594486 9 22239 -560623 10 76256 -428466 12 23070 -580220 14 43377 - 11930 15 84230 - 60050 16 9040 - 82508 17 8175 - 92938 18 8099 - 61170 Jamel ECLIA methodology Performed By: #### P REGQNT #### [facility] [address] [place] [address] Dr. Valeria Farris HCG-BETA SUBUNIT QUANTon hCG,Beta Subunit,Qnt,Serum 65 mIU/mL Normal [facility] Comment on above: Result Comment: Fema le (Non-) 0 - 5 (Postmenopausal) 0 - 8 . Female () Weeks of Gestation 3 - 4 - 750 5 217 - 7138 6 158 - 46548 7 3697 -141209 8 54565 -429988 9 17070 -452624 10 81526 -018099 12 64048 -484320 14 57209 - 87272 15 16551 - 68430 16 9040 - 86387 17 8175 - 85852 18 8099 - 26632 Jamel ECLIA methodology Performed By: #### U ACSIND, ALEXRO #### [facility] [address] [place] [address] Dr. Valeria Farris HCG-BETA SUBUNIT QUANTon hCG,Beta Subunit,Qnt,Serum 18 mIU/mL Normal [facility] Comment on above: Result Comment: Fema le (Non-) 0 - 5 (Postmenopausal) 0 - 8 . Female () Weeks of Gestation 3 - 71 4 10 - 750 5 217 - 7138 6 158 - 72334 7 3697 -669495 8 56702 -371938 9 53290 -852964 10 98102 -728027 12 47236 -902892 14 67454 - 96776 15 26772 - 26217 16 3661 - 00500 17 7690 - 92295 18 6748 - 18988 Jamel ECLIA methodology Performed By: #### G LU1HR #### [facility] [address] [place] [address] Dr. Valeria Farris PREG QUANT HCGon 10-05-2021 HCG QUANT <1 [facility] Comment on above: Performed By: #### P REGQNT #### [facility] [address] [place] [address] Dr. Valeria Farris HCG RANGE SEE BELOW Normal [facility] Comment on above: Result Comment: 5-50 0-1 WEEK 40-300 1-2 WEEKS 100-1,000 2-3 WEEKS 500-6,000 3-4 WEEKS 5,000-200,000 1-2 MONTHS 10,000-100,000 2-3 MONTHS 3,000-50,000 2ND TRIMESTER 1,000-50,000 3RD TRIMESTER Performed By: #### P REGQNT #### [facility] [address] [place] [address] Dr. Valeria Farris FREE T4on 09-12-2021 Free T4 [Mass/Vol] 0.88 ng/dL Normal 0.76-1.46 [facility] Comment on above: Performed By: #### P REGQNT #### [facility] [address] [place] [address] Dr. Valeria Farris TSHon 09-12-2021 TSH 1.564 uIU/mL Normal 0.358-3.740 [facility] Comment on above: Performed By: #### 4 [id number] #### [facility] [address] [place] [address] Dr. Valeria Farris TSH RANGE SEE BELOW Normal [facility] Comment on above: Result Comment: <0.3 4 UIU/ml HYPERTHYROID 0.34-5.60 UIU/ml EUTHYROID >5.60 UIU/ml HYPOTHYROID Performed By: #### 4 [id number] #### [facility] [address] [place] [address] Dr. Valeria Farris US VENOUS DOPPLER L [...] GERARD GONZALEZ Date: 2021-09-12 14:31 Normal [facility] Coding Summaryon 10-16-2020 Coding Summary HTMLBase 64 AbbyequaEGn1qIl+PGhlYWQ+ WM7QDIZyQ84akDUxoY7PZ0hQ FV1VTCQIAZJNII3MLS4vnDM8 XXeoX2InabVd EujzjGSzTH07NRf5CBJ7rNhy YMngzF5jyMFvN0x7UbSiJO92 oK08NZsiLABfZwR6PzXsixje bWFy T9hkAwOyyXFdOzl+PHRhYmxl IHdpZHRoPScxMDAlJyBzdHls CR0xJh1pUDTxEULyrSqalLCf OiBj e4mtEEFkOUpnDB1drQuxG0Hw kCC6SDUxf9g4Lm29jJB+PHRk TJF1rAkdYEjuq543QvZcw5pm IDM3 kZArSQipSDQ6C03ky9P4AXRq KZBkOQO0xCA9oW5teEvwjmvp B6IsmOZlZpW1SFN4lTSbjU9h bGln hwtjzH9sZdc+J34IFD5FETUM SW6IIvu9C0DlHapnyQZ+PC90 RPQbIS97gCFcuDNzt3gavMv2 JzEw BNCsTUW0pQotJJtnl9WgICOr Y79fuQToj3R7NNQwiAwmbKKu HqZmlEL1eG2nZKgiruyta3hh dzsn Awtod9bdck95xD25F02tYDbd SKOeIBW2URJzPNTvsHjnhy4n bN0uXd9+XCrpd7jwb0tvuXk0 IjIw XXXawtPivZqqIPW1e9CfEo70 J2BzcQekj1HzWxe3we00rLSe r1B4vMT6FStzDSRfuZ5tIWrm ZnQ6 AZUpLvMkmZ91gLAjZQldZi1d eXwdcCmcBC6cADTzlhrqSQCm sY4fNKAhaEUtcPiwMF8kRZKt bjtm q645YlSgYCJ0UXSuvQFnU7He gV5xRoOgSEHiXOPzP7HkaLKc YLsoA451IPnrIsE3MUDyzmFw Y2Fs PBTxbHvtKsW6y1B5Ql3Ny1To taonHEN3VWrqIGA7QtQ0UuDg HtG9T9DaGeg1DMVjfUgqYN6i J3Bh RYPvjjiwbbhvxPN0ZMLjJUQq dH98aLZcCPdoLh4yw4W2n972 PQEnASKtmU58Kg9rlCgeLHBh dCBU yM4inoybe5ixhqtrIuFgNLHt YSb5NGk3KFOqzZbsHzGaLHX9 YoO6BTQ9oADooN5ezOtuggav dG9w Oyc+C07hkI5yBBN8GBB5acdt MIPlcmExPP84XW48X4EdApwn dGFibGU+JLAzspRuvCxmLL5b YmFj y4vpx8LoDIpbC0PjTCMbGBic Zom5RBOnIRX5oIC6yC0aROSh WXzde8X5nAB2V1VumkKofk3s b2xs MLXdOAxtE21qkNSqf5G0CWDs sPU9SAVcuJvgQkOtpJ58Xcc+ VVFyjCmpy6CnTuiva0lsq5vz dGg9 UnFzTTStpuPxoTshQZG1d1Sk Wt92J69sUPxdIGSdHSGiEHWj LQIpaWqomd8bfY1gYm7+PGNv bCB3 cTD9fC2oVCQbKcH3PBesF596 XnCetIUzIhrzx3otu6mjgBq0 PsXfFNRusqRxvElpPMN4u9Fy Lz48 K10dBGmwBWVnYDPfJNLnWKZw sCdaec3pvG4yCw6+VY6sy5ah gq77gF74aRN+JVWaRMD8fZhh PSdw CQPkfX6kZXyvSwO2WOJdMdRu fS69fWZjNIltZm8cjNptlFwq HH8wUZIhbnwya949HiVqf0zk IDEw qCLmYJgwPCW9V35ie1L8CCDi CGLvLEV6iMV3kE6ryAxeoelj bGVmdDsgdmVydGljYWwtYWxp Z246 IHRvcDsnPlBhdGllbnQgTmFt MIy5Y8JoKaj5QYRynGjtEN8d fVPuVVvgZz6npVunoKoqUF9j NTBp wncvz957VrCsm5zkPRXrcEIp IHfvSNT4W62bs7H1QMNxJRUn DJT6uZI1mC9jqTyijlyqpHNu dDsg zsTgkAqzKIzhJRskV386EUZb tWrkBpInwxYqCVVmnLW4XC63 TN85eHIfx5T6tUV1J1PnIDVy bmct qujmwJP9AHRkOGPwlQ07Pf7b xYuhPa6tXCYcDLC0XPYfcQPc X0NtiC3kAmEfORNxNGDoK2Wn eHQt HHnbP950YNmjHzY8EDPumzQw B1HfQBMsxXzoFwG9f2Y2Us4C X3X6GB75BV00tEMex8F4lYY5 J3Bh VOFoyjoskgokrRH0GIKcMNKv sX11Ff1ftDpaJe7eDKQnWGW2 WZHihCUjV5NvmU2wChClLRJz MDAw F8NvbCHqPWpuN476DWfiVhL5 VWVffoPtJ2QeRJZpfVlrClX9 j8X6Iw3QVTn9HQ00PN16xKNd c3R5 hLN4M7YnISOawyeyysunzYX7 JMUdTWBxnP21Bi7dpRitYw4i IDYqVLB6XFIhkAGeP1FqyX5q OiAj EHRrMNEpQ1KooHMkLXtzB510 TNocHoS9OZFwsfYsN0LbAIBz fZwfXnJ8q2B7Fl6CJGOtSD36 IFR5 aSL4WM46SU57F7CtAullhFUp bGU+PHRhYmxlIHdpZHRoPScx PJSiWfXouIvcQZ5uCh6vSMVz LWNv oOqnnNPtNvEow8rkZAAgCOsl JN1yzRpaK5CkmTB4OWZzw3x7 Gc34O66vX5QouQX+PGNvbCB3 aWR0 cT6xIkCcUmT8SPbmV750AbVb hMMjJqwmq0vyp6pfyZa2HyY6 RAQmdwBgyVbrPWK5a3PqZl12 Y29s IHdpZHRoPSIxNSUiIHZhbGln kt4joL7iUc6+LORjwZR4kEX2 eQ8fEsWqUiW2AZghT946OsLm cCIv Ykikp9fct7ackUs0FaBwSJJt knCddEveCQI2b3VxTu05H0Tf rAiyr6LzBxw9rw39fHNoo5N9 bGU9 K7QlRLXtcwylnGXnvDomZU0u KKCkgmxxDZGusG7uXSUfF0u1 EfIgFaQ5BTdmO7XcucG0LLKh cHQg OVzyNZK1K62rr0G1HGMiEIBr XYB8lOY0tG4cqZteyesjrAHq fVewnnXioWldBUmjQRsnE176 IHRv mTbtOOLgjQ0mRGQkiXXebOfr MV7lQWFrewxpYaGEZxBYTbXH LCBNRUdBTiBNQVJJRTwvdGQ+ PHRk KSR2tAwyFPuoGZIodW2rHCJq E9f0CsErFeS7TCtmH1ZbPRWk fsznFm87eN8rTfLrSqY9JEaz O2Zv vfH7FIDpnNVeAWjqAOP7M62u p5S7JJLnIQEdWDU6yYH5oY9t bGlnbjogbGVmdDsgdmVydGlj YWwt DNnbB273EIOnsLocOjNzCgA2 LfV8YKF6T9VmAvp7WOMjlJtr JZ4rbKHrCGozSs6ktSdoxIwt MC4w UPJtgzfcXSCqnM2xLVAdaZXo zZkgCK9vCHHrdfawj891AoCh RAJ2UCFslEBsD3EzqU5kImKn MDAw DIOmI5WjaSCeCJwxN196ITus CfH7CNUcmzUaM6JkYTVleXif EkH1b5N6Xg7vDYQRLMDjurpn dGQ+ OQEmOEJ6wDuiRIvuBASmnR8e EDViY0g6EkWxSpP0UQwiE7Pk FBRdaeshXe17pL6zUtQpDfS1 MGlu E0UypwB9BYCthEXsQYstLAB3 H96ob8Q4DJMiKAHpXKX3nUT5 tK2djZutyunibYZacLokojOg dGlj EHqqXRqnL238JKLaaArlFkEU TUFMRTwvdGQ+FFCrMLJ2gWll IXxdMMTjkO4fPVZyL5n7VrId LjA1 XBheU9LoMUYxfmwqKn12bI7f YxHsOgG3KIxiC4YrrlR6PLPb oTJmXEqiJCK4C27ha4D5DQYm MDAw FCZ3kBY0lJ6cjLotbikisNRa fEpfpyPqoRypALahSLukZ962 UILtqOupWr3FOF91YX13K0Ak Pjwv dGFibGU+PHRhYmxlIHdpZHRo EKyjNTTcNjExcUygSK5vTr0m KIBuEBWivXvakUYtXpCno6rx YXBz HFjuML9rfTtoJ7HkeVT7XAVr q3d7Tt15R70tS6RqmFN+PGNv cHQ6cKL1eO2rIoWoIhO7MYgb Z249 PlVdpIBwLuand6tup6lgzUv7 GaEqYJDjugNfiPplIRB7d1Qc Pp55X40rNCtmSYSsLMQgXDIm IHZh rXtsyp9tbQ4nEy2+PGNvbCB3 sON4uE9hHxTeUoZ5DCzqE957 CxFnfOEeYdpbG92yW5DicAT+ PHRy Pdd3DNXruNwsUP7afIVcFNph Oe3sEJD4KlFnRjZbNAoxG3Ec TTNgulkzckqhwCA2LGEmZXLx aW47 Ul5keIamVu1dEFXbCBV7YTAo nAMoX3QjhY1lAaLwNEQzLHXb F9NegCRzLMxvO014VBezNpI4 IHZl jhQhX7PlARNczFdmHdT2e2I5 Vf2VhTmbsRNdBP0wRaJxWYa2 X7JsTuy0PQJvsOgyZZ1kmBXm ZGlu Eh4onWraiBlzGG8uLEOlikll n063EcTbt5lfVLCyuYSnMVxm SVU9Q95iq7O1FJVwPYVaEDI9 dGV4 jT4nbJravbpeoAXvnSssnsVy jOidOEquYMtjL636YIRjoBda FiMZLpa0V1TxAmp7LKLqjSrr ZT0n oEErHQqePa1iuSzalZgdZR8w IZGiwbftg222GnXty4jgXINx qXVgABcgXKV8J08un7G3UIRl MDAw LOH6dZN3gT9ygObyfjqwbSXa pEnlxqTxqFlrGTfkYImaI462 BBStmMegIs3NGpa1U1SoWrc9 ZCBz dTutDO0prDSbXTzsJq5auYcj aWvbMI3gQQVzfsyfe342AyZf x3gwSRVayNWwWVrkGHK7Y25x b3I6 HNWxXADhKJB4pYJ1nH2duIgg bjogbGVmdDsgdmVydGljYWwt ZNyxL272GVKizRhuPjQtoOGp Ojwv dGQ+FZ44wf17M9NxWmjyAtd5 YXXdXLA4cIP1wF4zSXAhONte m7Y2lPS9V8OuwzQeoz0js1zm YXBz ZTo (more content not included)... [facility] Coding Summary HTMLBase 64 JjzxsdxuPNd2tSi+PGhlYWQ+ JG7NHDGpA64ixVUfwR3FJ8aA VX9TQMGCKGISKO1PZT5khJB7 VMmkZ3RqfvPv AjbrwHBgPR92INm9YQA4gNqp WOxsmT4uqXUgN9x4AjMdJM04 bR44TMzoAQMlHpH8MjEtgkxu bWFy O2njTdStfBUzFjg+PHRhYmxl IHdpZHRoPScxMDAlJyBzdHls VE7pDn2xRKDnKUPvaTjkqZBi OiBj s5smNNVkNGthZL4huUtkB2Ln mHE4SADwl7h5Cc56mEL+PHRk NWU3hLyaIXbaa633VtOba3yz IDM3 lGDqKHxjNEO7E56ws4D1JNWm TXQcKTS4bPT1fB2jdGlzzimt C2RglFVrQeL8KMW4qOEjwP0w bGln nfayzR2oTpy+W67OSI6AGXGG PI9ZUoc9M9IwVnrdxJB+PC90 VXEkWJ23sSZqnNEqn2thrVy1 JzEw USYsGFT1zLurGQrxy2BgGOTe X80gkPCyv7L6TUCqaDnjpWRi SfVbvEG0kI6zYSrqyabwl1tl dzsn Xcedz9egkg26hD86G27wJIgf PJZxPZD9TLKhYTFgvPaxoa1m cG1lFb3+CJehd1sro2tqdXv6 IjIw CAMlblWojFomDOU9u1XiTf59 D0JudFgly1ZtTwi0sa07zVTz c5R3sCG0RDrlUOMgbD7oYJdt ZnQ6 SYBaWlCvpV94sJUxIJygHh1n vYtqzJetKY9oITNwrvtrYUSx cM8bHPUoqCKheVcvAA0vDLGq bjtm z817FcKgFSE5ZMZqkXRfG3Ay nY2rYoKrXNWvMKCvY4DwrLGi XIuwD002LMgrFnJ0OMOjytOa Y2Fs IOQzmAcqZyL7t0Y8Cg0Oi0Zo cfbxVRC9WIbsJID5QqU9NxIy DtR0A1IuCbl9TIBqnNhpWV7f J3Bh VUPgdembnysftUQ3COCmMZLj kC80pROfBKaqAk7to4G0s285 KULzGSEdaQ81Fo0yaObmDXTp dCBU lN1nsfrcc2jqqoejPgTnHQQe NIc0EAg8OAFuiHuuIkGgKFG4 GzI3WJD3eMMuyS2xnLhgxdjc dG9w Oyc+G68gtN2fMVO0XDU5bsvj FZLtxdUdGT91BJ19W5YoPgwu dGFibGU+CSCgvbNikYrzSF2x YmFj k2lwu0EkGRauN0XrJTMpRNnn Pvm6AJIbNMO9eMW7xH6vXFFp OQqbn2J6pVD2T5ZjoaPzhz7v b2xs JPZyJHzgV07pzKHfl8J7QVRm aHX4LUPhhPzmAzSpeJ87Kwm+ FMSnhMznv5OrEooem3sqi2mq dGg9 CgLpAQAacbMpyMsdEIR2x1Ag Pt13V33dHYotNLGdWZWqIGIx MCQkgQmylx2sqQ6rDq8+PGNv bCB3 sTJ0tL1iATBxKyZ0URqfV365 FtKaeERfQochr9wbu3slxUt1 DzUeXZVessIvhRxmUUI2b4Qj Lz48 P80fNOtbRSYoDUNjWKLtZXJw qOsvki8gzT5cVl9+ZC3na3zc px71nX73iDG+WVEwNBN4cXzx PSdw UZFqtT5rPLwgTrQ1WYEaCzJx eT88tUQaEZohTi9klOzwdRzd BG6cSKHdwdybg314MjViq3jb IDEw pCDqCLsqJHA3W63ub4T1ZABz QJFkBJN4aBD1wW0ldTkycuyp bGVmdDsgdmVydGljYWwtYWxp Z246 IHRvcDsnPlBhdGllbnQgTmFt STw2P4VuEjo6MPXoeXpiGH6y dOMoQOpjPy2mxIvwgMtbHJ0m NTBp jggft235IuXle2zhXOZjvAKu MUkmXMH7B73aj8X0XWTwTMFc TVL6uPK5gS5jfEfobsocsIAv dDsg nbWxuFsbXVqvLNyfO322ZRUj eJnjIcEsimIdPULjmED8GN97 XS66lYUsc5Y1tTA5G3QsWRWe bmct odtzxVO5SEQxACYrwK78Gv6a sJqtHi5gJOSuLVO7GLBxeOKc V9UqgG3uYyCdFUMeQWSxG3Yw eHQt QWfhF199ICgzHcR0QATevmSu Y7HwKTVrzTwcTwF2m3L1Ev2J L4R0IJ84MQ71lJDjx3N9cST3 J3Bh DPPukmrpczrueQN0MOVeKMPk aZ11Mb4pbYelXg5wCOLqHZS0 LKUtqGZuB5QjbV6qKwTnNAGp MDAw Z6HmpIAuTKkdK699DPekBdK9 JHKnjbPrM8DqQXRgwWrlUpV9 u5G0Hv9QJFr9ED83ES98bXWu c3R5 wLI7V1PzMEDdhdcwqrqdjWC7 UBLnBRIueR47Vm1faDsuHz1f QLYlWNI5WLCpnTRoM3AzqR1c OiAj MPUbYMScZ5XzdZAuWYqcF345 GYgmFnG6FXPjijIqA2XxKVRq fCcoRzS4s5W3Rn7QHOAoNJ56 IFR5 jVH6TF20KI99Z5GkTtlvgBNb bGU+PHRhYmxlIHdpZHRoPScx HYMgIbZxzYxeOI2nIe6gACXm LWNv uEdlmADfYsLjy8afQLYgBZxy BM6qhDmeE4ZdpVW4LKQux3e3 Gz66O41rB2FeaIG+PGNvbCB3 aWR0 rA0rIiOuAyS3YJjaK013GfWd tFUbSwmki0oln6iobSh0UtD9 EIHvpmFjsJcbAKQ5x2ApWt00 Y29s IHdpZHRoPSIxNSUiIHZhbGln go7biP7eMi1+LRUsgYU2sAO4 pS4pTjJtSkX8VJgvL531AkFg cCIv Dlyuo9fct2cjkVr8QmHuDRSc lzOayMntPBL8q8KoIp00Y6Qq bGypy4IrGfj1kh48aDZjx7Z3 bGU9 V8UgOVZpmxdztDHgxYhqTH2x RLWnwkptHRMhgE4iNTBvV5k4 VvAdBiX9VDdnW9QnrjJ3TLUe cHQg YDuiKEI8A13tk1Q5QEMwNGZx MGF2nKI1yJ1vfUerqrgalLDw zRijenSkiAeqXVdqOIntW148 IHRv zXujIXIadO1yGVIrhNJlxItd PM5vCLZkokysJzTQBxNNScLN LCBNRUdBTiBNQVJJRTwvdGQ+ PHRk PSS3dRtaWSavGSMhmJ1tJUXr C1y7WhWfHtI8MWojU7SiHNMj jxsfWt01fN6cHsRoCuA3DZtk O2Zv miR5HLLtkPBwRDodNOE2T19a u6I2GILhEAGjQUG5yAC6aR9c bGlnbjogbGVmdDsgdmVydGlj YWwt WRrzG630LPQqnVoyPrOsMoC1 CaW1CHM6V8EsAre9GYIgvHwv KT9vrDXmVJlmMa4xyCqeiNip MC4w QWUuqrhqDHMfvU7tYFZbtLYy tCxsXI6xPHGsyrmvf946ZyVt WNH7ZFRixKQoO0LytW4iHpOa MDAw TADpE3BwtVGwOObtT342YGbx LhH6VCIspxVlY7AfCGKbwCts UvF2g3W9Gp9sUVIJBFVnqeuz dGQ+ HYHiLDF3oNvhAMpqWCJndO0l KTFwW2j0NyInYfM6KBqiI6Xg CCBtpdheKe28jP8yIrWbZeV7 MGlu D1VrykT6UPLtsOQtURraMJK0 Q76jq4H9WWOtYAZcQJO1bQP9 xL3ddLoomgdovJNrhSnofjFk dGlj GAtzWZqpF964YFCtnKkwQzGD TUFMRTwvdGQ+SARpRSL4dStb ULuvYPSuqV0iWGMbT0d5PkUu LjA1 GLiyS2TcZJZinggoQv01vD9j WbFoVfQ5NFwbQ5ObwuL4BIIj lXSqSMgmKZA2D14qc2P7FTHt MDAw EGU0cHA5dU2jaKoigyjsxUGv uTgsjyZawPckHDxlDNjcA174 KOIqwDslDyTpGSBwYD5fnTge dGQ+ GJ27rc55P5OzAfsxNvv8CBCo DOR6lAK7kU2iLDCqKKvwj7Y7 jDA8B4ZllvQage2xw5hrFEBh ZTog V49rmEZbt0I2DTFysSG2KAPp uVxePhHgvH63Cly+PGNvbGdy t3AgOchjk8ihc4tdnBe9MvAs JSIg sjTugHtiMBI9h7IrOm80G48o IHdpZHRoPSIzMCUiIHZhbGln ie0yfA4fEq2+OHQgqOM4fYA0 aD0i HwMeUkV6WBofG507GjKhsPQs Gemow5cqe0elbFy5YbCsMVCx xfXocBifQGM3x4AtEd42K5Ir bGdy n5KbGeu8bv60mHOdj0O2mLT9 G3CzDWHngqdxzSWkhRdzXM2b QGJlurfrSLNieZ8dMFIcH1y4 OiAw VjG5QGspL0AwsfB1AZVjoBOh URTniIDVzC7hcniph8yledxq UaBkOLOzPGh7VTg5SIRziWex OiBs GFW6UgH7AYK0sVEwfX1lqKum kioohR6eYnt+GTx8y6bgjPBr UN6ooUO0TS55IY99kIEvh6T5 bGU9 E2OaXYEriezehxcywTH0PBOy SAClxC52Rw3itAnwHh0jXOFn HMU3ILBmxCRhS5ZvdX5zKfFt MDAw VHSqT1WziKCkKXhoG225CDsx LwH1AFBquzQmK2EyREQbtKhv EiM8p6S7Im3BBZ04JK96TP77 dGQg x0H0jHU7S4DqVLIuabmcrqhz aHP3IHWlRITufK45Aa9riVfi Dq1tUGFpOUW5CIZwfZLtA3Sq bG9y GgRfDYEhTTRuX5TioFHjKEmn F849SCwtCrX0QOVnvkUdU1Pr NKZuwGdqUnV9g0T1Fj9FFo07 PC90 DX19fKLpz2B2lWJ5C6RrIKBz grqbyoyclJW0BLWbXYRsuG56 Hq6wqDkkMp9fVTZbICH2SBTv bWVz K3TtgG0eCbKzYCYbXGKsT2Na hBMcGZcnO401LJwjXiE3BIMq yuOuL4PwDVXuvUwzBaS5x6O9 Jz5Q IKjetst9Y4ZpDmetuAQ+PC90 OGUiVG85eMYpbCAjn7eiaEy1 RkBzNJRgFDV4jEudRTjnr3Ee ZXIt Y29 (more content not included)... Normal [facility] .Auto Diff 10-11-2020 Auto [place]ador % 6 % Normal 12 [facility] Comment on above: Performed By: #### 7 [id number], [id number], [id number], [id number] ####[facility] (DEFAULT)[address] [place] [address] 74128 Baso Abs# 0.0 x10 Normal 0.0-0.2 [facility] Comment on above: Performed By: #### 7 [id number], [id number], [id number], [id number] ####[facility] (DEFAULT)[address] [place] [address] 87495 Basophils/100 WBC (Bld) 0.3 % Normal 0.2-2.0 [facility] Comment on above: Performed By: #### 7 [id number], [id number], [id number], [id number] ####[facility] (DEFAULT)[address] [place] [address] 41938 Eos Abs# 0.2 x10 Normal 0.0-0.4 [facility] Comment on above: Performed By: #### 7 [id number], [id number], [id number], [id number] ####[facility] (DEFAULT)[address] [place] [address] 74539 Eosinophils/100 WBC (Bld) 3.4 % Normal 0.9-4.0 [facility] Comment on above: Performed By: #### 7 [id number], [id number], [id number], [id number] ####[facility] (DEFAULT)[address] [place] [address] 27578 Lymph Abs# 2.5 x10 Normal 1.3-2.9 [facility] Comment on above: Performed By: #### 7 [id number], [id number], [id number], [id number] ####[facility] (DEFAULT)[address] [place] [address] 26053 Lymphocytes/100 WBC (Bld) 41 % Normal 14-48 [facility] Comment on above: Performed By: #### 7 754991, [id number], [id number], [id number] ####[facility] (DEFAULT)[address] [place] [address] 32044 Amador Abs# 0.4 x10 Normal 0.0-0.8 [facility] Comment on above: Performed By: #### 7 412693, [id number], [id number], [id number] ####[facility] (DEFAULT)[address] [place] [address] 68219 Neut Abs# 3.0 x10 Normal 1.5-9.2 [facility] Comment on above: Performed By: #### 7 [id number], [id number], [id number], [id number] ####[facility] (DEFAULT)[address] [place] [address] 96666 Neutrophils/100 WBC (Bld) 50 % Normal 44-88 [facility] Comment on above: Performed By: #### 7 257421, [id number], [id number], [id number] ####[facility] (DEFAULT)[address] [place] [address] CBC w/ Auto Diffon 1 Erythrocyte distribution width (RBC) [Ratio] 13.2 % Normal 11.5-15.0 [facility] Comment on above: Performed By: #### 7 937082, [id number], [id number], [id number] #### [facility] (DEFAULT) [address] [place] [address] Hematocrit (Bld) [Volume fraction] 36.8 % Normal 33.7-40.4 [facility] Comment on above: Performed By: #### 7 767461, [id number], [id number], [id number] #### [facility] (DEFAULT) [address] [place] [address] Hemoglobin (Bld) [Mass/Vol] 12.4 g/dL Normal 11.3-15.9 [facility] Comment on above: Performed By: #### 7 [id number], [id number], [id number], [id number] #### [facility] (DEFAULT) [address] [place] [address] Instr WBC 6.1 x10 Invalid Interpretation Code [facility] Comment on above: Performed By: #### 7 090504, [id number], [id number], [id number] #### [facility] (DEFAULT) [address] [place] [address] Man Diff? Auto Normal [facility] Comment on above: Performed By: #### 7 781357, [id number], [id number], [id number] #### [facility] (DEFAULT) [address] [place] [address] MCH (RBC) [Entitic mass] 29 pg Normal 24-34 [facility] Comment on above: Performed By: #### 7 358785, [id number], [id number], [id number] #### [facility] (DEFAULT) [address] [place] [address] MCHC (RBC) [Mass/Vol] 34 g/dL Normal 26-37 [facility] Comment on above: Performed By: #### 7 340198, [id number], [id number], [id number] #### [facility] (DEFAULT) [address] [place] [address] MCV (RBC) [Entitic vol] 87 fL Normal 81-100 [facility] Comment on above: Performed By: #### 7 984542, [id number], [id number], [id number] #### [facility] (DEFAULT) [address] [place] [address] Platelet 204 x10 Normal 138-427 [facility] Comment on above: Performed By: #### 7 404636, [id number], [id number], [id number] #### [facility] (DEFAULT) [address] [place] [address] Platelet mean volume (Bld) [Entitic vol] 9.6 fL Normal 6.3-10.2 [facility] Comment on above: Performed By: #### 7 825627, [id number], [id number], [id number] #### [facility] (DEFAULT) [address] [place] [address] RBC 4.25 x10 Normal 3.70-5.30 [facility] [facility] Comment on above: Performed By: #### 7 [id number], [id number], [id number], [id number] #### [facility] (DEFAULT) [address] [place] [address] WBC 6.1 x10 Normal 3.5-10.5 [facility] Comment on above: Performed By: #### 7 [id number], [id number], [id number], [id number] #### [facility] (DEFAULT) [address] [place] [address] CMP Standardon 10-11-2020 Albumin [Mass/Vol] 3.9 g/dL Normal 3.5-5.0 [facility] Comment on above: Performed By: #### 7 [id number], [id number], [id number], [id number] ####[facility] (DEFAULT)[address] [place] [address] 83812 Albumin/Globulin [Mass ratio] 1.3 {ratio} Low 1.4-2.6 [facility] Comment on above: Performed By: #### 7 [id number], [id number], [id number], [id number] ####[facility] (DEFAULT)[address] [place] [address] 98768 Alk Phos 67 IU/L Normal 32-91 [facility] Comment on above: Performed By: #### 7 392759, [id number], [id number], [id number] ####[facility] (DEFAULT)[address] [place] [address] 54725 ALT [Catalytic activity/Vol] 28.0 U/L Normal 14.0-54.0 [facility] Comment on above: Performed By: #### 7 [id number], [id number], [id number], [id number] ####[facility] (DEFAULT)[address] [place] [address] 90807 Anion gap [Moles/Vol] 14.0 mmol/L Normal 5.0-19.0 [facility] Comment on above: Performed By: #### 7 306855, [id number], [id number], [id number] ####[facility] (DEFAULT)[address] [place] [address] 22236 AST [Catalytic activity/Vol] 16 U/L Normal 15-41 [facility] Comment on above: Performed By: #### 7 744778, [id number], [id number], [id number] ####[facility] (DEFAULT)[address] [place] [address] 33294 Bili Total 0.3 mg/dL Normal 0.3-1.2 [facility] Comment on above: Performed By: #### 7 694186, [id number], [id number], [id number] ####[facility] (DEFAULT)[address] [place] [address] 52613 Calcium [Mass/Vol] 9.0 mg/dL Normal 8.9-10.3 [facility] Comment on above: Performed By: #### 7 759263, [id number], [id number], [id number] ####[facility] (DEFAULT)[address] [place] [address] 71220 Chloride [Moles/Vol] 109 mmol/L Normal 101-111 [facility] Comment on above: Performed By: #### 7 951532, [id number], [id number], [id number] ####[facility] (DEFAULT)[address] [place] [address] 43633 CO2 [Moles/Vol] 21 mmol/L Normal 21-32 [facility] Comment on above: Performed By: #### 7 848608, [id number], [id number], [id number] ####[facility] (DEFAULT)[address] [place] [address] 85312 Creatinine [Mass/Vol] 0.90 mg/dL Normal 0.60-1.30 [facility] Comment on above: Performed By: #### 7 599555, [id number], [id number], [id number] ####[facility] (DEFAULT)[address] [place] [address] 48527 Globulin (S) [Mass/Vol] 3.1 g/dL Normal 1.5-4.3 [facility] Comment on above: Performed By: #### 7 072868, [id number], [id number], [id number] ####[facility] (DEFAULT)[address] [place] [address] 37097 Glucose [Mass/Vol] 95.0 mg/dL Normal 74.0-118.0 [facility] Comment on above: Performed By: #### 7 794020, [id number], [id number], [id number] ####[facility] (DEFAULT)[address] [place] [address] 81896 Osmolality 282 mOsm/L Invalid Interpretation Code [facility] Comment on above: Performed By: #### 7 712396, [id number], [id number], [id number] ####[facility] (DEFAULT)[address] [place] [address] 86903 Potassium [Moles/Vol] 4.0 mmol/L Normal 3.6-5.1 [facility] Comment on above: Performed By: #### 7 777929, [id number], [id number], [id number] ####[facility] (DEFAULT)[address] [place] [address] 91253 Protein [Mass/Vol] 7.0 g/dL Normal 6.5-8.1 [facility] Comment on above: Performed By: #### 7 004430, [id number], [id number], [id number] ####[facility] (DEFAULT)[address] [place] [address] 39618 Sodium [Moles/Vol] 140.0 mmol/L Normal 136.0-144.0 [facility] Comment on above: Performed By: #### 7 810512, [id number], [id number], [id number] ####[facility] (DEFAULT)[address] [place] [address] 35628 Urea nitrogen [Mass/Vol] 20 mg/dL Normal 8-26 [facility] Comment on above: Performed By: #### 7 887218, [id number], [id number], [id number] ####[facility] (DEFAULT)[address] [place] [address] 90669 Urea nitrogen/Creatinine [Mass ratio] 22.2 mg/mg High 4.6-16.2 [facility] Comment on above: Performed By: #### 7 757609, [id number], [id number], [id number] ####[facility] (DEFAULT)[address] [place] [address] 57835 Discharge Instructionson Discharge Instructions [id number] TIFF Normal [facility] ED Clinical Summaryon 2020 ED Clinical Summary [facility] - Emergency Department [address] [place] [address] ED Clinical Summary PERSON INFORMATION Name: YANI WOODY Age: 30 Years Sex: FEMALE : 1990 MRN: Acct#: Visit Reason: Pelvic pain; PELVIC AREA PAIN Arrival: 10/11/2020 09:15:57 Discharge: 10/11/2020 12:33:00 LOS: 000 03:18 Check In: 10/11/2020 09:15:57 Checkout:10/11/2020 12:33:00 Address: [address] [place] [address] PCP: Provider, None PROVIDER INFORMATION Provider Role Assigned Unassigned DAVID GALVAN ED PA 10/11/2020 09:24:51 Linn Decker [employer]TER Nurse 10/11/2020 09:28:06 Kristi Caes [employer]OND SETTER Nurse 10/11/2020 11:45:12 VITALS INFORMATION Vital Sign [...] test which were negative. 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 NECK: -Supple (ydow-ej-atsna): non-tender. CARD: -Rate and rhythm: Regular -Edema: No -Calf pain: No RESP: -Respiratory effort and chest excursion with respirations: Normal -Breath sounds equal bilaterally: Clear -Wheezes: No -Rales: No BACK: -Signs of pain with movement: No ABD: -Distended: No -Bruits: No -Bowel sounds: Normal. -Deep palpation: Non-tender, soft, no guarding or r (more content not included)... Normal [facility] ED Note - Physicianon 2020 [...] test which were negative. 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 NECK: -Supple (oeuk-td-soxos): non-tender. CARD: -Rate and rhythm: Regular -Edema: [...] report. I r (more content not included)... [facility] ED Note-Nursingon 10-11-2020 ED Note-Nursing Patient arrives to [facility] ED via private car with c/o right [...] light within reach. Will continue to monitor. 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 If you or anyone you know is experiencing suicidal thoughts, mental health, alcohol and/or drug addiction problems; contact the [facility] 13/11 Crisis Hotline -text [address] 812746. If you received any narcotics, sedation, or [...] legal documents With: Address: When: Cordelia Donahue [address] [place] [address] Business (1) Within 2 to 4 days Comments: Follow-up with diesel power shovel operator in the next few days for reevaluation. Return at anytime for reevaluation or if you have worsening symptoms, vaginal bleeding, chest pains, shortness of breath or any other problems. Continue to stay hydrated. Medication Information: The exam and treatment you received today in the [facility] Emergency Department were for an urgent problem and are not intended as complete care. It is important for you to follow up with a doctor, nurse practitioner, or physician?s integration assistant for ongoing care. If your symptoms [...] so we can reach you if necessary. [facility] Emergency Department has provided you with a complete list of medications post discharge. Please inform your municipal maintenance worker/provider of your visit and for further instruction [...] (Inserted Image. Unabl (more content not included)... [facility] Extra Greenon 10-11-2020 Tube Collected Yes Invalid Interpretation Code [facility] Comment on above: Performed By: #### 7 [id number], [id number], [id number], [id number] #### [facility] (DEFAULT) [address] [place] [address] 85964 Lactic Acidon 10-11-2020 Lactic Acid 12.4 mg/dL Normal 4.5-19.8 [facility] Comment on above: Performed By: #### 2 [id number] ####[facility] (DEFAULT)[address] [place] [address] 99972 Test Urine 1on U Preg Negative [facility] Comment on above: Performed By: #### 3 [id number] ####[facility] (DEFAULT)[address] [place] [address] 60468 U Preg Internal Control Pass [facility] Comment on above: Performed By: #### 3 [id number] ####[facility] (DEFAULT)[address] [place] [address] 15974 UA Igjur3wu 10-11-2020 UA Bacteria Rare [facility] Comment on above: Performed By: #### 2 [id number], [id number] ####[facility] (DEFAULT)[address] [place] [address] 96913 UA RBC 0-2 Normal [facility] Comment on above: Performed By: #### 2 [id number], [id number] ####[facility] (DEFAULT)[address] [place] [address] 91111 UA Squam Epi Few Normal [facility] Comment on above: Performed By: #### 2 [id number], [id number] ####[facility] (DEFAULT)[address] [place] [address] 68117 UA WBC 0-2 Normal [facility] Comment on above: Performed By: #### 2 [id number], [id number] ####[facility] (DEFAULT)[address] [place] [address] 42586 UA w Micro, if Ind Standardo n 10-11-2020 Micro? Indicated Normal [facility] Comment on above: Performed By: #### 2 [id number], [id number] ####[facility] (DEFAULT)[address] [place] [address] 47043 Breakpoint UA Normal [facility] Comment on above: Performed By: #### 2 [id number], [id number] ####[facility] (DEFAULT)[address] [place] [address] 64610 Color (U) Yellow Normal [facility] Comment on above: Performed By: #### 2 [id number], [id number] ####[facility] (DEFAULT)[address] [place] [address] 95857 Glucose (U) [Mass/Vol] Negative Normal [facility] Comment on above: Performed By: #### 2 [id number], [id number] ####[facility] (DEFAULT)[address] [place] [address] 45775 Ketones Ql (U) Negative Normal [facility] Comment on above: Performed By: #### 2 [id number], [id number] ####[facility] (DEFAULT)[address] [place] [address] 66751 UA Bilirubin Negative Normal [facility] Comment on above: Performed By: #### 2 [id number], [id number] ####[facility] (DEFAULT)[address] [place] [address] 60247 UA Blood TRACE Abnormal NEGATIVE [facility] Comment on above: Performed By: #### 2 [id number], [id number] ####[facility] (DEFAULT)[address] [place] [address] 40367 UA Clarity CLEAR Normal CLEAR [facility] Comment on above: Performed By: #### 2 [id number], [id number] ####[facility] (DEFAULT)[address] [place] [address] 86539 UA Leuk Est Negative Normal NEGATIVE [facility] Comment on above: Performed By: #### 2 [id number], [id number] ####[facility] (DEFAULT)[address] [place] [address] 63571 UA Nitrite Negative Normal NEGATIVE [facility] Comment on above: Performed By: #### 2 [id number], [id number] ####[facility] (DEFAULT)[address] [place] [address] 77391 UA pH 6.0 Normal 5-8 [facility] Comment on above: Performed By: #### 2 [id number], [id number] ####[facility] (DEFAULT)[address] [place] [address] UA Protein Negative Normal NEGATIVE [facility] Comment on above: Performed By: #### 2 [id number], [id number] ####[facility] (DEFAULT)[address] [place] [address] 43229 UA Spec Grav 1.025 Normal 1.001-1.035 [facility] Comment on above: Performed By: #### 2 [id number], [id number] ####[facility] (DEFAULT)[address] [place] [address] 53758 UA Urobilinogen 0.2 mg/dL Normal 0.2-1.0 [facility] Comment on above: Performed By: #### 2 [id number], [id number] ####[facility] (DEFAULT)[address] [place] [address] Urine Source Clean Catch Normal [facility] Comment on above: Performed By: #### 2 [id number], [id number] ####[facility] (DEFAULT)[address] [place] [address] 08301 US Pelvis Non-OB Completeon 06-21-2021 US Pelvis Non-OB Complete US Pelvis Non-OB [...] Dominguez MD 10/11/20 12:29 p Technologist: NATASHA [facility] US Transvaginalon 10-11-2020 US Transvaginal US [...] Dominguez MD 10/11/20 12:29 p Technologist: NATASHA [facility] Video Visit - Telehealtho n 01-28-2020 Video Visit - Telehealth Chief Complaint Medication follow up via [employer] video Subjective Interval History/HPI This visit was conducted via two-way, real-time interactive video communications from my office using [employer] due to the restrictions of the COVID-19 pandemic. No physical exam was conducted other than those areas of the body visible to telecommunications with the patient located at [address] [place] [address], with no one else in attendance. If [...] groomed, appears stated age, obese Behavior; Cooperative Speech: Normal rate and tone and normal [...] day(s), # 42 tab(s), Refills(s) 5, Pharmacy: [facility]/pharmacy #[id number], 156, cm, 01/28/20 8:32:00 EDT, Height/Length Dosing, 124, kg, 01/28/20 8:32:00 EDT, Weight Dosing 3. 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) drug therapy) Orders: lamotrigine, 300 mg = 2 tab(s), Oral, Bedtime, # 60 tab(s), Refills(s) 5, Pharmacy: [facility]/pharmacy #[id number], 156, cm, 01/28/20 8:32:00 EDT, Height/Length Dosing, 124, kg, 01/28/20 8:32:00 EDT, Weight Dosing lurasidone, 60 mg = 1 tab(s), Oral, Daily, @supper with food, # 30 tab(s), Refills(s) 5, Pharmacy: [facility]/pharmacy #[id number], 156, cm, 01/28/20 8:32:00 EDT, Height/Length Dosing, 124, kg, 01/28/20 8:32:00 EDT, Weight Dosing metformin, 500 mg = 1 tab(s), Oral, BID, # 60 tab(s), Refills(s) 5, Pharmacy: [facility]/pharmacy #[id number], 156, cm, 01/28/20 8:32:00 EDT, Height/Length Dosing, 124, kg, 01/28/20 8:32:00 EDT, Weight Dosing General Treatment Plan Pharmacological management: Alternative medication plans were discussed with the patient/guardian. All relevant side effects and potenti (more content not included)... Normal [facility] Comment on above: Result Comment: Elec tronically Signed By: TERE TENORIO, Jocelyn\.br\Date and Time Signed: 01/28/20 09:14 EDT Vital Signs Date Time Vital Sign Value Performing Clinician Facility 12-17-2023 13:04-0400 Body height 152.4 cm [facility] 12-17-2023 13:04-0400 Body mass index (BMI) [Ratio] 59.5 kg/m2 [facility] 12-17-2023 13:04-0400 Body temperature 97.5 [degF] [facility] 12-17-2023 13:04-0400 Body weight 138.4 kg [facility] 12-17-2023 13:04-0400 Diastolic blood pressure 68 mm[Hg] [facility] 12-17-2023 13:04-0400 Heart rate 92 /min [facility] 12-17-2023 13:04-0400 Respiratory rate 18 /min [facility] 12-17-2023 13:04-0400 SaO2% (BldA) [Mass fraction] 95 % [facility] 12-17-2023 13:04-0400 Systolic blood pressure 125 mm[Hg] [facility] 06-29-2023 11:10-0500 Body height 154.9 cm Lindseykojo Mcmahon MANAGER MAINTENANCE-SECRETARY TO THE VICE PRESIDENT Work Phone: [facility] 06-29-2023 11:10-0500 Body mass index (BMI) [Ratio] 56.08 kg/m2 LindseyCleverbugdorys MANAGER MAINTENANCE-SECRETARY TO THE VICE PRESIDENT Work Phone: [facility] 06-29-2023 11:10-0500 Body weight 134.54 kg [employer] MANAGER MAINTENANCE-SECRETARY TO THE VICE PRESIDENT Work Phone: [facility] 06-29-2023 11:10-0500 Diastolic blood pressure 84 mm[Hg] Lindsey Kregel MANAGER MAINTENANCE-SECRETARY TO THE VICE PRESIDENT Work Phone: [facility] 06-29-2023 11:10-0500 Heart rate 93 /min Lindsey KreGuomai MANAGER MAINTENANCE-SECRETARY TO THE VICE PRESIDENT Work Phone: [facility] 06-29-2023 11:10-0500 SaO2% (BldA) [Mass fraction] 95 % Lindsey Mcmahon MANAGER MAINTENANCE-SECRETARY TO THE VICE PRESIDENT Work Phone: [facility] [employer] [facility] 06-29-2023 11:10-0500 Systolic blood pressure 152 mm[Hg] Lindsey Mcmahon MANAGER MAINTENANCE-SECRETARY TO THE VICE PRESIDENT Work Phone: [facility] [employer] 05-03-2023 13:16-0500 Body mass index (BMI) [Ratio] 54.61 kg/m2 Katerin Doradoer MANAGER MAINTENANCE-SECRETARY TO THE VICE PRESIDENT [facility] Phone: [facility] 05-03-2023 13:16-0500 Body weight 131.09 kg Katerin Doradoer MANAGER MAINTENANCE-SECRETARY TO THE VICE PRESIDENT Work Phone: [facility] 05-03-2023 13:16-0500 Diastolic blood pressure 74 mm[Hg] Katerin Doradoer MANAGER MAINTENANCE-SECRETARY TO THE VICE PRESIDENT Work Phone: [facility] 05-03-2023 13:16-0500 Heart rate 88 /min Katerin Doradoer MANAGER MAINTENANCE-SECRETARY TO THE VICE PRESIDENT Work Phone: [facility] 05-03-2023 13:16-0500 Respiratory rate 18 /min Katerin Leijachter MANAGER MAINTENANCE-SECRETARY TO THE VICE PRESIDENT Work Phone: [facility] 05-03-2023 13:16-0500 SaO2% (BldA) [Mass fraction] 98 % Katerin Doradoer MANAGER MAINTENANCE-SECRETARY TO THE VICE PRESIDENT Work Phone: [facility] 05-03-2023 13:16-0500 Systolic blood pressure 126 mm[Hg] Katerin Doradoer MANAGER MAINTENANCE-SECRETARY TO THE VICE PRESIDENT Work Phone: [facility] 02-05-2023 09:45-0400 Body height 154.94 cm Jovita Murcia Other [facility] Other 02-05-2023 09:45-0400 Body mass index (BMI) [Ratio] 57.32 kg/m2 Jovita Murcia Other [facility] Other 02-05-2023 09:45-0400 Body temperature 98 [degF] Jovita Murcia Other [facility] Other 02-05-2023 09:45-0400 Body weight 137.62 kg Jovita Murcia Other [facility] Other 02-05-2023 09:45-0400 Respiratory rate 18 /min Jovita Murcia Other [facility] Other 02-05-2023 09:45-0400 SaO2% (BldA) [Mass fraction] 97 % Jovita Murcia Other [facility] Other 12-22-2022 09:30-0400 Diastolic blood pressure 96 mm[Hg] MD Aline Villalobos Work Phone: [facility] 12-22-2022 09:30-0400 Heart rate 60 /min MD Aline Villalobos Work Phone: [facility] 12-22-2022 09:30-0400 Respiratory rate 16 /min MD Aline Villalobos Work Phone: [facility] 12-22-2022 09:30-0400 SaO2% (BldA) [Mass fraction] 99 % MD Aline Villalobos Work Phone: [facility] 12-22-2022 09:30-0400 Systolic blood pressure 154 mm[Hg] MD Aline Villalobos Work Phone: [facility] 12-22-2022 08:06-0400 Body height 152.4 cm MD Aline Villalobos Work Phone: [facility] 12-22-2022 08:06-0400 Body weight 137.89 kg MD Aline Villalobos Work Phone: [facility] 07-22-2022 11:35-0400 Respiratory rate 18 /min Inge Leung DO Work Phone: [employer] 07-22-2022 08:00-0400 Body temperature 99 [degF] Inge Leung DO Work Phone: [employer] 07-22-2022 08:00-0400 Diastolic blood pressure 63 mm[Hg] Inge Leung DO Work Phone: [employer] 07-22-2022 08:00-0400 Heart rate 78 /min Inge Leung DO Work Phone: [employer] 07-22-2022 08:00-0400 SaO2% (BldA) [Mass fraction] 99 % Inge Leung DO Work Phone: [employer] 07-22-2022 08:00-0400 Systolic blood pressure 137 mm[Hg] Inge Leung DO Work Phone: [employer] 07-18-2022 17:35-0400 Body height 154.94 cm Alesha Cortez Other [facility] Other 07-18-2022 17:35-0400 Body mass index (BMI) [Ratio] 62.16 kg/m2 Alesha Cortez Other [facility] Other 07-18-2022 17:35-0400 Body temperature 96 [degF] Alesha Cortez Other [facility] Other 07-18-2022 17:35-0400 Body weight 149.23 kg Alesha Cortez Other [facility] Other 07-18-2022 17:35-0400 Respiratory rate 18 /min Alesha Cortez Other [facility] Other 07-18-2022 17:35-0400 SaO2% (BldA) [Mass fraction] 97 % Alesha Cortez Other [facility] Other 07-15-2022 17:16-0400 Diastolic blood pressure 83 mm[Hg] Inge Piazza DO Work Phone: [employer] 07-15-2022 17:16-0400 Heart rate 97 /min Inge Piazza DO Work Phone: [employer] 07-15-2022 17:16-0400 Respiratory rate 16 /min Inge Padillaazza DO Work Phone: [employer] 07-15-2022 17:16-0400 Systolic blood pressure 142 mm[Hg] Inge Piazza DO Work Phone: [employer] 07-15-2022 15:44-0400 Body temperature 98.49 [degF] Inge Piazza DO Work Phone: [employer] 03-21-2022 10:30-0500 Body height 154.94 cm Naga Wells Other [facility] Other 03-08-2022 02:06-0500 Body weight 141.0696 kg LILIA RUIZ [facility] Comment on above: Performed By: #### DAPHNE TOBIAS #### [facility] [address] [place] [address] Dr. Valeria Farris Encounters Encounter Date Encounter Type Care Provider Facility Start: 01-15-2024 End: 01-15-2024 ambulatory CLAUDIA DUFF [facility] Start: 01-15-2024 End: 01-15-2024 ambulatory NOAH NIHCOLAS Not Available Start: 01-03-2024 End: 01-03-2024 ambulatory NOAH NICHOLAS Not Available Start: 12-31-2023 End: 12-31-2023 ambulatory CLAUDIA E JIAN [facility] Start: 12-29-2023 End: 12-29-2023 Emergency department patient visit CHAS BALDERAS [facility] Start: 12-17-2023 End: 12-17-2023 ambulatory [facility] Work Phone: Start: 12-17-2023 End: 12-17-2023 Patient encounter procedure [facility] Physician [facility] Work Phone: Start: 12-17-2023 End: 12-17-2023 ambulatory NOAH NICHOLAS Not Available Start: 12-06-2023 End: 12-06-2023 ambulatory [facility] Start: 11-29-2023 End: 11-29-2023 ambulatory NOAH NICHOLAS Not Available Start: 11-12-2023 End: 11-12-2023 ambulatory CHARMAINE MARIKA Not Available Start: 11-08-2023 End: 11-08-2023 ambulatory [facility] Start: 10-29-2023 End: 10-29-2023 ambulatory NOAH NICHOLAS Not Available Start: 10-11-2023 End: 10-11-2023 ambulatory NOAH NICHOLAS Not Available Start: 10-09-2023 End: 10-09-2023 ambulatory [facility] Start: 09-11-2023 End: 09-11-2023 ambulatory NOAH NICHOLAS Not Available Start: 09-10-2023 End: 09-11-2023 Emergency department patient visit MANUEL HERBERT [facility] Start: 08-28-2023 End: 08-28-2023 Emergency department patient visit CHAS SHERRIE [facility] Start: 08-24-2023 End: 08-24-2023 ambulatory CHAS JANNIEYAZMIN Not Available Start: 08-14-2023 End: 08-14-2023 ambulatory NOAH NICHOLAS Not Available Start: 07-19-2023 End: 07-19-2023 ambulatory CHARMAINE MARIKA Not Available Start: 07-02-2023 Telephone encounter Lindsey philip MANAGER MAINTENANCE-SECRETARY TO THE VICE PRESIDENT Work Phone: [facility] - Sleep Disorders Comment on above: Sleep Lab (PSG) Start: 06-29-2023 End: 06-29-2023 [facility] Start: 06-29-2023 End: 06-29-2023 Office outpatient new 45 minutes [facility] MANAGER MAINTENANCE-SECRETARY TO THE VICE PRESIDENT Work Phone: [facility] Comment on above: MOLINA (obstructive sle ep apnea) (Primary Dx); Morning headache; Memory loss; Fatigue, unspecified type; Snoring Start: 06-24-2023 Refill Katerin grewal MANAGER MAINTENANCE-SECRETARY TO THE VICE PRESIDENT Work Phone: [facility] Start: 06-14-2023 End: 06-14-2023 ambulatory RAZIA MULLER [facility] Start: 06-06-2023 Refill Katerin grewal MANAGER MAINTENANCE-SECRETARY TO THE VICE PRESIDENT Work Phone: [facility] Start: 06-05-2023 Orders Only Sadaf Louis [facility] Comment on above: Low back pain, unspe cified back pain laterality, unspecified chronicity, unspecified whether sciatica present (Primary Dx) Start: 05-29-2023 Telephone encounter Orders Sup port User Transcribe [facility] Comment on above: Sleep Lab Start: 05-22-2023 End: 05-22-2023 ambulatory CHAS BALDERAS Not Available Start: 05-16-2023 End: 05-17-2023 Emergency department patient visit LINA HUGHES [facility] Start: 05-15-2023 End: 05-15-2023 ambulatory NOAH PETERSON Not Available Start: 05-03-2023 End: 05-03-[address] [facility] Start: 05-03-2023 End: 05-03-2023 Office outpatient visit 15 minutes Katerin Haynes MANAGER MAINTENANCE-SECRETARY TO THE VICE PRESIDENT Work Phone: [facility] Comment on above: Acute non-recurrent maxillary sinusitis (Primary Dx) Start: 04-19-2023 End: 04-19-2023 ambulatory CHARMAINE HAIRSTON Not Available Start: 02-05-2023 End: 02-05-2023 ambulatory Jovita Murcia Other [facility] Other Start: 02-05-2023 Office outpatient vi sit 15 minutes Jovita Murcia [facility] Start: 12-22-2022 End: 12-22-2022 ambulatory Aline Villalobos Facility:[facility] Start: 12-22-2022 End: 12-22-2022 ambulatory MD Aline Villalobos Work Phone: [facility] Work Phone: Start: 12-22-2022 End: 12-22-2022 Patient encounter procedure MD Aline Villalobos Work Phone: [facility] [place] Work Phone: Start: 12-20-2022 End: 12-20-2022 ambulatory Aline Villalobos Facility:[facility] Start: 12-20-2022 End: 12-20-2022 ambulatory MD Aline Villalobos Work Phone: [facility] Work Phone: Start: 12-20-2022 End: 12-20-2022 Patient encounter procedure MD Aline Villalobos Work Phone: [facility] [place] Work Phone: Start: 09-04-2022 ambulatory RAYSA LINN Facilit y:[facility] Start: 07-20-2022 End: 07-22-2022 Evaluation and management of inpatient Inge Causeycorrina DO Work Phone: [facility] Comment on above: RLTCS w/ IUD 07/20/22 F Apg 8/9 Wt 6#12 (Primary Dx) Start: 07-20-2022 End: 07-20-[address] NOAH PETERSON Facility:[facility] Start: 07-19-2022 End: 07-19-[address] NOAH PETERSON Facility:[facility] Start: 07-18-2022 End: 07-18-2022 ambulatory Alesha Cortez Other [facility] [employer] Other Start: 07-18-2022 Office outpatient vi sit [...] Facility:[facility] Start: 06-22-2022 End: 06-22-[address] LADONAN CARSON . Facility:[facility] Start: 06-19-2022 End: 06-19-2022 [...] 03-21-2022 End: 03-21-2022 ambulatory [place] Wells Other [facility] Other Start: 03-21-2022 Office outpatient ne w 30 minutes N[place] Wells [facility] Start: 03-19-2022 End: 03-19-2022 ambulatory LILIA RUIZ Facility:[facility] Start: 03-15-2022 End: 03-16-[address] NOAH PETERSON Facility:[facility] Start: 03-03-2022 End: 03-04-[address] NOAH PETERSON Facility:[facility] Start: 02-27-2022 Blood pressure taking Jovita groves Other [facility] Other Start: 01-09-2022 End: 01-10-[address] NOAH PETERSON Facility:[facility] Start: 12-30-2021 End: 12-31-[address] NOAH PETERSON Facility:[facility] Start: 12-14-2021 End: 12-15-[address] NOAH PETERSON Facility:[facility] Start: 12-07-[address] NOAH PETERSON Facility :[facility] Start: 11-28-2021 End: 12-21-[address] NOAH PETERSON Facility:[facility] Start: 10-05-2021 End: 10-06-[address] NOAH PETERSON Facility:[facility] Start: 09-26-2021 ambulatory SHAIKH Vandana CURRYSIVAJune Nuñez y:[facility] Start: 09-12-2021 End: 09-13-[address] GERARD GONZALEZ Facility:[facility] Start: 09-12-2021 End: 09-13-[address] NOAH PETERSON Facility:[facility] Start: 10-28-2020 History of abnormal cervical Papanicolaou smear Jovita Murcia Other [facility] Other Start: 01-30-2018 End: 01-31-2018 Patient encounter DEFAULT PHYSICIAN Facility:[facility] Procedures Date Procedure Procedure Detail Performing Clinician Start: 12-22-2022 Investigation of transfusion reaction MD Aline Villalobos Work Phone: Start: 07-22-2022 Glucose blood reagent strip Hitesh A Jewel DO Work Phone: Start: 07-21-2022 Glucose blood reagent strip Hitesh A Raleigh DO Work Phone: Start: 07-21-2022 Glucose blood reagent strip Hitesh A Raleigh DO Work Phone: Start: 07-21-2022 Glucose blood reagent strip Hitesh A Raleigh DO Work Phone: Start: 07-21-2022 Blood count complete auto&auto difrntl wbc Nash E Eleazar DO Work Phone: Start: 07-20-2022 Glucose blood reagent strip Hitesh A Jewel DO Work Phone: Start: 07-20-2022 Cul prsmptv pthgnc o rganism scrn w/colony estimj Shelby N Ramirez DO Work Phone: Start: 07-20-2022 Culture bacterial quanttative colony count urine Leshae Cenac MD Work Phone: Start: 07-20-2022 End: 07-20-2022 [...] 07-20-2022 H/O: section History of CS x2 Ingegrey Leung DO Work Phone: Start: 07-15-2022 Ct [...] in Cervix by Cyto stain Katerin Haynes APRN-SECRETARY TO THE VICE PRESIDENT Work Phone: Start: 12-28-2021 Diabetes mellitus screening Jovita Murcia Other Start: 11-30-2021 Adult depression scr eening assessment Katerin Haynes APRN-SECRETARY TO THE VICE PRESIDENT Work Phone: End: 04-13-2021 screening Jovita Murcia Other End: 07-27-2021 screening Jovita Murcia Other Counseling Jovita Murcia Other Depression screening Jovita Murcia Other visit Jovita Hardeep nicolas Other Plan of Treatment Date Care Activity Detail Author Start: 12-21-2029 DTaP,Tdap and Td Vaccines (7 - Td or Tdap) DTaP,Tdap and Td Vaccines (7 - Td or Tdap) [facility] Start: 12-21-2029 DTaP/Tdap/Td vaccine (7 - Td or Tdap) DTaP/Tdap/Td vaccine (7 - Td or Tdap) [facility] Start: 05-29-2025 Screening for malign ant neoplasm of cervix Pap Smear [facility] Start: 06-28-2024 Adult BMI Screening Adult BMI Screen ing [facility] Start: 06-28-2024 Tobacco Screening Tobacco Screening [facility] Start: 06-13-2024 Adult BMI Screening Adult BMI Screen ing [facility] Start: 05-16-2024 Adult BMI Screening Adult BMI Screen ing [facility] Start: 05-16-2024 Tobacco Screening Tobacco Screening [facility] Start: 05-03-2024 Adult BMI Follow Up Plan Adult BMI Follow Up Plan [facility] Start: 05-03-2024 Adult BMI Screening Adult BMI Screen ing [facility] Start: 05-03-2024 Tobacco Screening Tobacco Screening [facility] Start: 03-12-2024 Adult BMI Follow Up Plan Adult BMI Follow Up Plan [facility] Start: 01-09-2024 End: 01-09-2024 Patient encounter procedure 01/09/2024 9:00 AM EDT Office Visit [facility] [address] [place] [address] Lindsey Mcmahon, MANAGER MAINTENANCE-SECRETARY TO THE VICE PRESIDENT [address] [address] [facility] Start: 10-23-2023 End: 10-23-2023 Clinical Support 10/23/2023 8:00 PM EDT Clinical Support [facility] [address] [place] [address] [facility] Start: 07-11-2023 End: 07-11-2023 Patient encounter procedure 07/11/2023 10:00 AM EDT Office Visit [facility] [address] [place] [address] Lindsey Mcmahon, MANAGER MAINTENANCE-SECRETARY TO THE VICE PRESIDENT [address] [address] [facility] Start: 06-25-2023 End: 06-25-2023 Patient encounter procedure 06/25/2023 10:30 AM EST Office Visit [facility] [address] [place] [address] Terese Valladares MANAGER MAINTENANCE-SECRETARY TO THE VICE PRESIDENT [address] [address] [facility] Start: 06-14-2023 End: 06-14-2023 Patient encounter procedure 06/14/2023 8:15 AM EST Appointment [facility] [address] [place] [address] [facility] Start: 06-05-2023 End: 06-05-2024 [...] Office Visit [facility] [address] [place] [phone] Katerin Haynes, MANAGER MAINTENANCE-SECRETARY TO THE VICE PRESIDENT [address] [place], [place] [id number] [facility] Start: 05-28-2023 End: 05-28-2023 Patient encounter procedure 05/28/2023 9:30 AM EST Office Visit [facility] [address] [place] [phone] Terese Valladares, MANAGER MAINTENANCE-SECRETARY TO THE VICE PRESIDENT [address] [address] [facility] Start: 05-18-2023 Hemoglobin A1c measurement A1C test (Diabetic or Prediabetic) [facility] Start: 12-22-2022 COVID-19 Vaccine ( season) COVID-19 Vaccine ( season) [facility] Start: 12-22-2022 Influenza vaccination Influenza Vacc ine [facility] Start: 12-22-2022 Cerebrospinal fluid culture [facility] Start: 12-22-2022 End: 12-22-2022 [facility] Start: 11-30-2022 Depression Screening Depression Scre ening [facility] Start: 11-21-2022 Influenza vaccination Flu vacc ine (Season Ended) [facility] Start: 07-20-2022 End: 07-20-2022 Patient encounter procedure 07/20/2022 Routine Perinatology [facility] Start: 07-13-2022 End: 07-13-2022 Patient encounter procedure 07/13/2022 Routine Perinatology [facility] Start: 07-06-2022 End: 07-06-2022 Patient encounter procedure 07/06/2022 Routine Perinatology [facility] Start: 02-05-2022 Screening for malign ant neoplasm of cervix [facility] Start: 11-21-2021 Influenza vaccination Flu vaccine (# 1) [facility] Start: 01-21-2021 COVID-19 Vaccine (2 - Booster for Hipolito series) COVID-19 Vaccine (2 - Booster for Hipolito series) [facility] Start: 02-05-2013 Screening for malign ant neoplasm of cervix Pap smear [facility] Start: 02-05-2010 Hepatitis C screening Hepatitis C sc reen [facility] Start: 02-05-2007 [facility] Start: 2004 Depression Screen Depression Screen [facility] Start: 02-05-2002 Lipid panel Lipids [facility] Start: 02-05-1998 Pneumococcal 0-64 ye ars Vaccine (1 - PCV) Pneumococcal 0-64 years Vaccine (1 - PCV) [facility] Start: 02-05-1993 Varicella vaccine (1 of 2 - 2-dose childhood series) Varicella vaccine (1 of 2 - 2-dose childhood series) [facility] Bacteria identified in Unspecified specimen by Aerobe culture [facility] Bacteria identified in Unspecified specimen by Anaerobe culture [facility] End: 07-15-2022 COVID-19, Rapid COVID-19, Rapid Microbiology STAT One Time for 1 Occurrences starting 07/15/2022 until 07/15/2022 [facility] Phone: Comment on above: One Time for 1 Occur rences starting 07/15/2022 until 07/15/2022 CT CHEST PULMONARY EMBOLISM W CONTRAST CT CHEST PULMONARY EMBOLISM W CONTRAST Imaging STAT 07/15/2022 5:48 PM EDT [facility] Phone: Culture, Strep B Scr een, Vaginal/Rectal Culture, Strep B Screen, Vaginal/Rectal Microbiology [employer] Label Print 07/20/2022 6:56 PM EDT [facility] Phone: EKG 12 Lead EKG 12 Lead ECG Routine 07/15/2022 4:23 AM EDT [facility] Phone: Glucose [Mass/volume ] in Serum or Plasma POCT glucose Point of Care Testing Routine 4X Daily (AC & HS) until discontinued starting 07/20/2022 [facility] Phone: Comment on above: 4X Daily (AC & HS) u ntil discontinued starting 07/20/2022 End: 07-15-2022 Hepatitis C Antibody [facility] Phone: Comment on above: One Time for 1 Occur rences starting 07/15/2022 until 07/15/2022 Meningitis+Encephali tis pathogens DNA and RNA panel - Cerebral spinal fluid by SARANYA with non-probe detection [facility] Microscopic observat ion [Identifier] in Unspecified specimen by Gram stain [facility] Nonrebreather mask oxygen Nonrebreather mask oxygen Respiratory Care Routine As directed - RT (PRN) until discontinued starting 07/15/2022 [facility] Phone: Comment on above: As directed - RT ([place] N) until discontinued starting 07/15/2022 Oxygen therapy [[facility] Data Set] Initiate Oxygen Therapy Protocol Respiratory Care Routine Daily until discontinued starting 07/20/2022 [employer] Work Phone: Comment on above: Daily until disconti nued starting 07/20/2022 Patient Education [facility] Lumb ar Puncture Discharge Instructions [facility] Work Phone: PROFILE I PROF ILE I Lab [employer] Label Print 07/15/2022 4:12 PM EDT [employer] Phone: End: 06-28-2024 [facility] Routine MOLINA (obstructive sleep apnea) 1 Occurrences starting 06/29/2023 until 06/28/2024 [facility] Work Phone: Comment on above: 1 Occurrences starti ng 06/29/2023 until 06/28/2024 End: 07-15-2022 RAPID INFLUENZA A/B ANTIGENS RAPID INFLUENZA A/B ANTIGENS Microbiology STAT One Time for 1 Occurrences starting 07/15/2022 until 07/15/2022 [employer] Phone: Comment on above: One Time for 1 Occur rences starting 07/15/2022 until 07/15/2022 End: 07-20-2022 Specimen hold [employer] Work Phone: Comment on above: Once for 1 Occurrenc es starting 07/20/2022 until 07/20/2022 End: 07-20-2022 Specimen to Pathology Specimen to Pathology Lab Routine One Time for 1 Occurrences starting 07/20/2022 until 07/20/2022 [facility] Phone: Comment on above: One Time for 1 Occur rences starting 07/20/2022 until 07/20/2022 Spirometry panel Incentive linda metry Respiratory Care Routine Every 2hr while awake until discontinued starting 07/20/2022 [facility] Phone: Comment on above: Every 2hr while awak e until discontinued starting 07/20/2022 End: 07-15-2022 Troponin I.cardiac [Mass/volume] in Serum or Plasma Troponin Lab STAT One Time for 1 Occurrences starting 07/15/2022 until 07/15/2022 [employer] Work Phone: Comment on above: One Time for 1 Occur rences starting 07/15/2022 until 07/15/2022 Immunizations Immunization Date Immunization Notes Care Provider Radha bowen 04-21-2014 influenza virus vaccine, unspecified formulation Katerin ALEXIS Work Phone: [employer] NEGATED: Highlighted row has not occurred!07-22-2022 tetanus toxoid, reduced diphtheria toxoid, and acellular pertussis vaccine, adsorbed Inge Mojicaza DO Work Phone: [facility] Payers Date Payer Category Payer Unknown 2022 Unknown [id number] 2022 Medicaid [id number] 2022 Medicaid [place] [id number] 2022-Present [address] [place] [address] 1.2.840.022206.1.13.424.2. 7.3.133942.315 1992 Unknown [id number] 2.16.840.1.295015.3.579.2. 647 1992 Unknown [id number] 2.16.840.1.236059.3.579.2. 593 1992 Unknown [id number] 2.16.840.1.251730.3.579.2. 593 1992 Unknown [id number] 2.16.840.1.555972.3.579.2. 593 1992 Unknown [id number] 2.16.840.1.774501.3.579.2. 593 1992 Unknown [id number] 2.16.840.1.623059.3.579.2. 593 1992 Unknown [id number] 2.16.840.1.796294.3.579.2. 593 1992 Unknown [id number] 2.16.840.1.903699.3.579.2. 593 1992 Unknown [id number] 2.16.840.1.018724.3.579.2. 593 1992 Unknown [id number] 2.16.840.1.365559.3.579.2. 593 1992 Unknown [id number] 2.16.840.1.462493.3.579.2. 593 1992 Unknown [id number] 2.16.840.1.762833.3.579.2. 593 1992 Unknown [id number] 2.16.840.1.246248.3.579.2. 593 1992 Unknown [id number] 2.16.840.1.985926.3.579.2. 593 1992 Unknown [id number] 2.16.840.1.908287.3.579.2. 593 1992 Unknown [id number] 2.16.840.1.189531.3.579.2. 593 1992 Unknown [id number] 2.16.840.1.105409.3.579.2. 593 1992 Unknown [id number] 2.16.840.1.887787.3.579.2. 593 1992 Unknown [id number] 2.16.840.1.284958.3.579.2. 593 1992 Unknown [id number] 2.16.840.1.028575.3.579.2. 593 1992 Unknown [id number] 2.16.840.1.867720.3.579.2. 593 1992 Unknown [id number] 2.16.840.1.645324.3.579.2. 593 1992 Unknown [id number] 2.16.840.1.775346.3.579.2. 593 1992 Unknown [id number] 2.16.840.1.428667.3.579.2. 593 1992 Unknown [id number] 2.16.840.1.294110.3.579.2. 593 1992 Unknown [id number] 2.16.840.1.047992.3.579.2. 593 1992 Unknown [id number] 2.16.840.1.867058.3.579.2. 593 1992 Unknown [id number] 2.16.840.1.182204.3.579.2. 593 1992 Unknown [id number] 2.16.840.1.958240.3.579.2. 593 1992 Unknown [id number] 2.16.840.1.654958.3.579.2. 593 1992 Unknown [id number] 2.16.840.1.219680.3.579.2. 593 1992 Unknown [id number] 2.16.840.1.420346.3.579.2. 593 1992 Unknown [id number] 2.16.840.1.114887.3.579.2. 593 1992 Unknown [id number] 2.16.840.1.794596.3.579.2. 593 1992 Unknown [id number] 2.16.840.1.563658.3.579.2. 593 1992 Unknown [id number] 2.16.840.1.087245.3.579.2. 593 1992 Unknown [id number] 2.16.840.1.873309.3.579.2. 593 1992 Unknown [id number] 2.16.840.1.771134.3.579.2. 593 1992 Unknown [id number] 2.16.840.1.062052.3.579.2. 593 1992 Unknown [id number] 2.16.840.1.036933.3.579.2. 593 1992 Unknown [id number] 2.16.840.1.946898.3.579.2. 593 1992 Unknown [id number] 2.16.840.1.039089.3.579.2. 1286 1992 Unknown [id number] 2.16.840.1.303403.3.579.2. 1286 1992 Unknown [id number] 2.16.840.1.025015.3.579.2. 175 1992 Unknown [id number] 2.16.840.1.631392.3.579.2. 175 1992 Unknown [id number] 2.16.840.1.029093.3.579.2. 175 1992 Unknown [id number] 2.16.840.1.391727.3.579.2. 175 1992 Unknown [id number] 2.16.840.1.472902.3.579.2. 1259 1992 Unknown [id number] 2.16.840.1.837174.3.579.2. 9 1992 Unknown [id number] 2.16.840.1.048391.3.579.2. 9 1992 Unknown [id number] 2.16.840.1.883584.3.579.2. 1259 1992 Unknown [id number] 2.16.840.1.005839.3.579.2. 1259 1992 Unknown [id number] 2.16.840.1.774027.3.579.2. 9 1992 Unknown [id number] 2.16.840.1.830324.3.579.2. 9 1992 Unknown [id number] 2.16.840.1.164554.3.579.2. 1259 1992 Unknown [id number] 2.16.840.1.738990.3.579.2. 1259 1992 Unknown [id number] 2.16.840.1.475596.3.579.2. 9 1992 Unknown [id number] 2.16.840.1.194121.3.579.2. 1259 1992 Unknown [id number] 2.16.840.1.176569.3.579.2. 1259 1992 Unknown [id number] 2.16.840.1.672264.3.579.2. 1259 1992 Unknown [id number] 2.16.840.1.077327.3.579.2. 1259 1992 Unknown [id number] 2.16.840.1.094585.3.579.2. 1286 1992 Unknown [id number] 2.16.840.1.159621.3.579.2. 1286 1992 Unknown [id number] 2.16.840.1.851196.3.579.2. 1286 1992 Unknown [id number] 2.16.840.1.239131.3.579.2. 6 1992 Unknown [id number] 2.16.840.1.311122.3.579.2. 1286 1992 Unknown [id number] 2.16.840.1.209830.3.579.2. 1286 1992 Unknown [id number] 2.16.840.1.578915.3.579.2. 1286 1992 Unknown [id number] 2.16.840.1.305155.3.579.2. 1286 1959 Medicaid [id number] 1.2.840.673156.1.13.239.2. 7.3.822757.315 1959 Private Health Insurance [id number] 1.2.840.347550.1.13.239.2. 7.3.843957.315 1959 Self-pay 1959 Unknown [id number] 1959 Worker's Compensation [id number] 2.16.840.1.700834.19 Medicaid [employer] [id number] [facility] [id number] Private Health Insurance [id number] 2.16.840.1.056377.19 Private Health Insurance [facility] [id number] Unknown [id number] 2.16.840.1.898112.19 Unknown [id number] 2.16.840.1.002603.3.579.2. 593 Unknown [id number] 2.16.840.1.210753.3.579.2. 531 Unknown [id number] 2.16.840.1.584603.3.579.2. 531 Social History Date Type Detail Facility Unknown if ever smoked [facility] Other Start: 06-03-2020 End: 05-03-2023 Sex Assigned At [facility] Other Start: 06-22-2022 End: 06-29-2023 Tobacco smoking status NHIS Ex-smoker [employer] Start: 05-25-2020 End: 12-22-2022 History of tobacco use Current smoker [facility] Phone: End: 11-20-2017 History of tobacco use Cigarette Smoker [facility] Phone: Start: 06-22-2022 End: 06-29-2023 Tobacco use and exposure Smokeless tobacco non-user [facility] Phone: Start: 06-29-2022 End: 06-29-2023 Alcohol intake Ex-drinker (finding) [facility] Phone: Start: 06-22-2022 Tobacco Comment Quit in 2019 06/22/2022 [facility] Phone: Start: 11-20-2021 [facility] Phone: Start: 1992 Sex Assigned At Female [employer] Start: 07-10-2022 End: 07-20-2022 Exposure to SARS-CoV-2 (event) Not sure [facility] Phone: Start: 06-03-2020 End: 11-16-2022 Cigarettes smoked current (pack per day) - Reported 0.5 [facility] Adolescent depressio n screening assessment 2 [facility] Start: 11-30-[address] [facility] tem Start: 11-16-2022 Tobacco Comment quit in July [facility] tem Start: 05-16-2022 Gender identity Identifies as female gender (finding) [facility] Start: 05-25-2022 Sexual orientation Heterosexual (finding) [facility] Medical Equipment Procedure Code Equipment Code Equipment Origin al Text Equipment Identifier Dates BD ULTRA-FINE PE N NEEDLES 29G X 12.7MM MISC [id number] Start: 04-03-2022 ONETOUCH ULTRA strip [id number] Star t: 06-11-2022 DROPLET PEN NEED LES 29G X 12MM MISC [id number] Start: 06-30-2022 Clinical Notes 01-28-2020 to 07-02-2023 Telephone Encounter - Christine Valladares - 07/02/2023 9:14 AM EDTTelephone Encounter - Christine Valladares - 07/02/2023 9:14 AM EDTStaVANESA Deluca - 06/29/2023 11:00 AM ESTPatient Instructions Note Date & Type Note Facility 07-02-2023 Miscellaneous Notes Formattin g of this note is different from the original. 3 order received Scheduled [facility] at [facility] on 10/[facility]/23 Mychart confirmation [place] [employer] PSG order & / [place] notes in Epic With TCO2 monitoring. Please obtain baseline in supine position. documented in this encounter [facility] 07-02-2023 Telephone encount er Note 3 order received Scheduled PS[facility] at [facility] on 10/23/23 Mychart confirmation [place] [employer] PSG order & 3/6 [place] notes in Epic With TCO2 monitoring. Please obtain baseline in supine position. [facility] 06-29-2023 History of Presen t illness Narrative Chief Complaint: Yani Bang is a 33 y.o. female present for [...] you wake up? 6-8 AM Number of lozzhv-as-jrm-night awakenings per night? 3-4 Cause of awakenings [...] to stop the activity if sleepiness occurs (pullman clerk at the next safe opportunity if driving). [...] and during sleep). CC: MD Lindsey CAMEJO [facility] Office: [phone] 11:18 AM on 06/29/2023 This note is dictated with the use of M*Modal.Please note that this dictation was completed with computer voice recognition software. Quite often unanticipated grammatical, syntax, homophones, and other interpretive errors are inadvertently transcribed by the computer software. Please disregard these errors. Please excuse any errors that have escaped final proofreading. VANESA Mendez 06/29/23 1125 documented in this encounter [facility] 06-29-2023 Instructions VANESA Mendez - 06/29/2023 11:00 AM EST If you re looking for general health and wellness resources, please visit [facility] [email or web address] documented in this encounter [facility] 06-29-2023 Evaluation note Diagnosis MOLINA (obstructive sleep apnea)- Primary Obstructive sleep apnea (adult) (pediatric) Morning headache Memory loss Fatigue, unspecified type Snoring Other dyspnea and respiratory abnormality documented in this encounter [facility]2024 Miscellaneous Notes* Telephone Encounter - Ernestina Simpson - 05/29/2023 10:23 AM EST Pt called to schedule a sleep study or appointment with collin Dawn advised we have nothing as of now and either order is in her chart to schedule with gave her the number to sleep medicine in [facility] [facility] Note* Telephone Encounter - Ernestina Simpson - 05/29/2023 10:23 AM EST Pt called to schedule a sleep study or appointment with collin Dawn advised we have nothing as of now and either order is in her chart to schedule with gave her the number to sleep medicine in [facility]01-11-2024 History of Present illness Narrative* VANESA Frank - 05/03/2023 1:15 PM EST Images from the original note were not included. [address] [facility] [address] SUBJECTIVE: Patient ID: Yani Bang is a [...] VANESA Frank 05/03/23 1330 [facility] note* Encounter Date Diagnosis Assessment [...] not specified, unspecified location (ICD-10 - J01.90) [facility] Other 04-01-2023 History of Present illness Narrative* [...] patient Attending Physician: Dr. Fish Estrada MD Utilities Operator Resident 07/22/2022, 12:40 AM Attending Physician Statement [...] patient Attending Physician: Dr. Betina Bush, DO Utilities Operator Resident 07/21/2022, 3:02 AM Attending Physician Statement [...] 07/21/2022 10:00 AM [facility]) Phone: 1(500) 709-947603-30-2023 Evaluation note* Diagnosis RLTCS w/ IUD 07/20/22 [...] affecting documented in this encounter [facility] [employer] Work Phone: 1(434) 722-575003-28-2023 Evaluation note* Encounter Date Diagnosis Assessment Notes [...] other viral communicable diseases (ICD-10 - Z20.828) [facility] Other 11-29-2022 Evaluation note* Encounter Date Diagnosis [...] off of work. We will apply for [facility] approval for therapy. [facility] Other 06-21-2021 NoteEducation Materials Obstetrics and Gynecology [...] Follow these instructions at home: ? Take dazl-xzs-qatfuth and prescription medicines only as told by [...] menstrual period is much (more content not included)...[facility] 01-28-2020 NoteOphthalmology Basics of Medication [...] caregiver questions about your prescriptions and any yefz-rhd-iskppdz medications, vitamins, herbal or dietary supplements that [...] your caregiver or pharm (more content not included)...[facility] Chief complaint+Reason for visit Narrative* Chief Complaint Congestion, fever Reason for Visit Contact with and (grimm spected) exposure to covid-19 [facility] Work Phone: Evaluation note* Diagnosis [...] condition or complication documented in this encounter [facility] [employer] [facility] Work Phone: evaluation noteNo assessment information available [facility] Work Phone: Evaluation note* Diagnosis Acute non-recurrent maxillary sinusitis- Primary documented in this encounter [facility] SystemEvaluation note* Diagnosis Low back pain, unspecified back pain laterality, unspecified chronicity, unspecified whether sciatica present- Primary documented in this encounter [facility] SystemEvaluation note* Diagnosis Onset Date Resolution Status Contact with and (suspected) exposure to covid-19 noneactive [facility] Work Phone: History general Narrative - Reported* Type Description Date Medical History Depression Medical History Bipolar disorder Medical History Hypertension Medical History Hypothyroidism Surgical History cholecystectomy Surgical History wisdom teeth extract Surgical History lipoma removed Surgical History left knee scope x 2 Surgical History hemorrhoidectomy Hospitalization History see above surgical histo ry [facility] Other Hospital Discharge instructions* Attachments The following attachments cannot be sent through Care Everywhere. * Section: Post-op ([place] Citizen) * Preeclampsia: : General Info ([place] Citizen) * Depression: ([place] Citizen) documented in this encounterB[facility] [employer] Work Phone: Instructions* Attachments The following attachments cannot be sent through Care Everywhere. * Sinusitis in adults ([place] Citizen) documented in this encounterProPreggers SystemInstructionsNot on file documented in this encounterProPreggers SystemInstructionsNot on file documented in this encounterProMedica Health SystemInstructionsNot on file documented in this encounterProKettering [facility] SystemInstructionsNot on file documented in this encounterProKettering [facility] System Summary Purpose Family History No [...] sleep apnea) Procedures PSG Diagnostic Lindsey Mcmahon, MANAGER MAINTENANCE-SECRETARY TO THE VICE PRESIDENT [address] [facility], [address] [place] [address] Referral ID Status Reason Start Date Expiration Date V isits Requested Visits Authorized [id number] Pending Review 06/29/2023 06/28/2024 1 1 Additional Source Comments INFORMATION SOURCE (unrecogn ized section and content) DATE CREATED AUTHOR 02/27/2018 [facility] DATE CREATED AUTHOR AUTHOR'S ORGANIZ ATION 09/15/2020 [facility] DATE CREATED AUTHOR AUTHOR'S ORGANIZ ATION 10/17/2020 [facility] DATE CREATED AUTHOR AUTHOR'S ORGANIZ ATION 08/25/2022 [facility] DATE CREATED AUTHOR AUTHOR'S ORGANIZ ATION 01/01/2023 [facility] DATE CREATED AUTHOR AUTHOR'S ORGANIZ ATION 06/30/2023 [facility] DATE CREATED AUTHOR AUTHOR'S ORGANIZ ATION 01/05/2024 [facility] DATE CREATED AUTHOR AUTHOR'S ORGANIZ ATION 01/17/2024 [facility] EPIC DATE CREATED AUTHOR AUTHOR'S ORGANIZ ATION 01/18/2024 [facility] REASON FOR VISIT (unrecogniz ed section and content) Specialty Diagnoses / Procedures Referred By Contac t Referred To Contact Diagnoses 36 weeks gestation of Hitesh Holloway DO [address] [place] [address] [facility] [address] [place] [address] Referral ID Status Reason Start Date Expiration Date Visits Re quested Visits Authorized [id number] 1 1 Reason Comments Nasal Congestion Dizziness Reason Onset Date Comments Sleep Lab 05/29/2023 Reason Comments Med Refill Reason Comments New Patient Sleep ConsultNo prio r sleep studyNot on PAP Specialty Diagnoses / Procedures Referred By Ismael t Referred To Contact Pulmonary Medicine Diagnoses Morning headache Memory loss Razia Muller, MANAGER MAINTENANCE-SECRETARY TO THE VICE PRESIDENT [address] [place] [address] [facility] [address] [place] [address] Referral ID Status Reason Start Date Expiration Date Visits Requested Visits Authorized [id number] Pending Review Specialty Services Required 06/12/2023 06/11/2024 [...] at rate not to exceed 25 mg/min. 183 (Given - Provid er: Ellen Dunn [...] Other 1727 (Given - Provid er: Ricky Lloyd) ondansetron (ZOFRAN) injection 4 mg(Linked Group 1) [...] (Given - Provider: Stephany Paige APRN - TRANSFORMATION CONSULTANT) citalopram (CELEXA) tablet 20 mg 20 mg, [...] Nausea) 08 (Given - Provider: Lakesha Loera RN)222 [...] 1720 (New Bag - Provider: Dasha Rhodes, RN)1820 (Stopped - Provider: Dasha Rhodes, VIKTORIA) [...] [phone] (Not Given - Provider: Lakesha Leora RN - Reason: Order parameters not met [...] Provider: Elisa Mckeon RN)1125 (Given - Provider: Laeksha Loera, VIKTORIA) labetalol (NORMODYNE) tablet 200 mg (CANCELED) 200 [...] after dose., 0812 (Given - Provider: Lakesha Loera, VIKTORIA) 0830 (Given - Provider: Lakesha Loera, VIKTORIA) metroNIDAZOLE (FLAGYL) tablet 500 mg 500 mg, [...] (NoRateChange - Provider: Stephany Paige APRN - TRANSFORMATION CONSULTANT)182 (Paused - Provider: Agata Pollard, VIKTORIA - Comment: Switch to gravity)183 (New Bag [...] (4-6), 1806 (Given - Provider: Lakesha Loera RN)222 (Given - Provider: Jennifer Porras) 0225 (See [...] December 17, 2023 End: December 17, 2023 Director Biology Relationship Specialty Start Date End Date Chas Balderas MD [address] [place] [address] PCP - General Family Medicine 06/29/23 Director Biology Relationship Specialty Start Date End Date Katerin Haynes APRN-VANIA [address] [place] [address] PCP - General Family Medicine 11/23/22 Team Status: Active Member Role Status Dates Aline Villalobos MD Primary Care Provider Active Team Status: Inactive Member Role Status Dates Aline Villalobos MD Primary Care Provider Active Razia Muller , MANAGER MAINTENANCE-HOT PATCHER-C Attending Provider Active Goals (unrecognized section and [...] BE BASED ON THE PRIMARY CLINICAL RECORDS. [employer] provides no warranty or guarantee of the accuracy or completeness of information in this document.
[2024-01-21 08:01] VITALS: BP 138/79; PULSE 85
== END 2024-01-21 08:35 | disposition home or self-care (01) ==
LOC: US 07:13 → FBC 07:31
PROVIDERS: PCP Family Medicine; Visit Provider Obstetrics & Gynecology
DX: O24.419 Gestational diabetes mellitus in pregnancy, unspecified control (principal); Z3A.34 34 weeks gestation of pregnancy
CPT/HCPCS: 76818; 76820

== ENCOUNTER 2024-01-24 07:02 | Outpatient (OUT) | payer BC, MEDICAID, SELFPAY ==
--- OUTSIDE RECORDS SUMMARY | 2024-01-24 07:06 | XMS_ITS | CCD ---
Author Organization [facility] Care Team Providers Care Cavalry Officer Name Role Phone PHYSICIAN, DEFAULT Unavailable Unavailable [...] NADERER, DR CHAS Norman Primary Care Unavailable [place], DR ALINE Henriquez Consulting Unavailable NICHOLAS, DR ZAMORA Consulting Unavailable KARASIK ., DR DOUGHERTY Admitting Unavailabl e KARASIK ., DR DOUGHERTY Consulting Unavailabl e KARASIK ., DR DOUGHERTY Attending Unavailabl e NADERER, DR CHAS Norman Primary Care Unavailable KARASIK ., DR DOUGHERTY Attending Unavailabl e KARASIK ., DR DOUGHERTY Admitting Unavailabl e KARASIK ., DR DOUGHERTY Consulting Unavailabl e FAWMEGAN, [facility] Primary Care Unavailable NICHOLAS, DR ZAMORA [...] Consulting Unavailable JIAN, DAV Attending Unavailable DEREK, [facility] Primary Care Unavailable DAV VILLAR Admitting [...] NICHOLAS, DR ZAMORA Consulting Unavailable NICHOLAS, DR ZAOMRA Admitting Unavailable NICHOLAS, DR ZAMORA Attending Unavailable [...] Unavailable MD Aline Villalobos Primary Care Provider [phone] TONJA Muller Attending Provider Aline Villalobos Primary Care Unavailable Razia Muller E Admitting Unavailable Razia Muller Attending Unavailable Aline Villalobos Primary Care Unavailable Renzo, Razia E Admitting Unavailable Renzo, Razia E Attending Unavailable Jovita Murcia Unavailable [place] LEWIS-VARNISH MAKER, Katerin Primary Care Provide r [facility] Primary Care Provide r Sherrie TENORIO, Chas Primary Care Provider LINDSEY MCMAHON Attending Unavailable MULLER, RAZIA Referring Unavailable NADEREWendi, CHAS Primary Care Unavailable SCHLUCRECIA, KATERIN Attending Unavailable SCHLACHTCRISSY, KATERIN Referring Unavailable SCHOKCHT, KATERIN Primary Care Unavailable PERNI, MATEO C Referring Unavailable NADERER, [facility] Primary Care Unavailabl e PERNI, MATEO C Referring Unavailable NADERER, [facility] Primary Care Unavailabl e PERNI, MATEO C Referring Unavailable NADERER, [facility] Primary Care Unavailbrinda e CLAUDIA VILLAR Admitting Unavailable CLAUDIA VILLAR Attending Unavailable NADERER, [facility] Primary Care UnavailCHARMAINE Torres Attending Unavailable NICHOLAS, NOAH Attending Unavailable NADEREWendi, CHAS Attending Unavailable NICHOLAS, NOAH Attending Unavailable NADERER, CHSA Attending Unavailable NICHOLAS, NOAH Attending Unavailable NICHOLAS, NOAH Attending Unavailable NICHOLAS, NOAH Attending Unavailable MARIKA, CHARMAINE Attending Unavailable NICHOLAS, NOAH Attending Unavailable NICHOLAS, NOAH Attending Unavailable NICHOLAS, NOAH Attending Unavailable NICHOLAS, NOAH Attending Unavailable [facility], CHAS Primary Care Unavailable BONITA COFFMAN Attending Unavailable [facility] Primary Care Unavailable MANUEL GODINEZ Attending Unavailable HERBERT, MANUEL Attending Unavailable MANUEL GODINEZ Referring Unavailable [facility]AS Primary Care Unavailable [facility]AS Primary Care Unavailable KANIKA VIDAL Attending Unavailable CLAUDIA DUFF Admitting Unavailable CLAUDIA DUFF Attending Unavailable CHAS BALDERAS Primary Care Unavailable SCHOKCHTCRISSY, KATERIN Primary Care Unavailable CLAUDIA SOLARES Attending [...] [MORPHINE] Drug Allergy 09-18-19 18 hivsushma, Rash [employer] Other (16 sources) Codeine; Translations: [CODEINE] Drug All[facility] 06-06-19 [facility] (13 sources) Penicillins; Translations: [PENICILLINS] Propensity to adverse reactions to drug 02-22-20 16 Anaphylaxis, Shortness Of Breath [facility] Work Phone: (1 source) Codeine Drug Allergy 07-30-19 22 [facility] (1 source) Morphine Drug Allergy [facility] (1 source) Codeine Drug Allergy 12-23-19 23 [facility] (1 source) Morphine Drug Allergy 05-25-19 21 [facility] (1 source) Pseudoephedrine Drug Allergy 02-22-20 22 Unknown [employer] Other (1 source) Allergies Reconciled Propensity to adverse reactions 02-28-20 Unknown [employer] Other (1 source) Substance with penicillin structure and antibacterial mechanism of action (substance) Drug allergy 02-28-20 22 Unknown [employer] Other (1 source) Morphine Sulfate (Concentrate) *ANALGESICS - OPIOI Propensity to adverse reactions 02-28-20 22 Unknown [employer] Other (9 sources) Doxycycline; Translations: [DOXYCYCLINE] Drug Allergy 02-08-20 23 [employer] (1 source) 12 Hour Decongestant Allergy to substance 12-17-19 24 Unknown Reaction [facility] Medications Current Medications Medication Drug [...] as needed Orally every 6 hrs Active [id number] 200 actuat albuterol 0.09 mg/actuat metered dose [...] 06-20-2022 PROFE 391.3 (180 Fe) MG CAPS Vz254-Kzam-Yihmu Acid (1 source) Start: 12-17-2023 take 1 tablet by mouth once daily Of548-Dugj-Jzipg Acid Active 1 TAB PO Daily December [...] Orally once a d ay Active levonorgestrel 0.921044 mg/hr intrauterine system (3 sources) Progestin, Progestin-containing [...] tablet 0 11/16/2017 Active polyethylene glycol 3350 71039 mg powder for oral solution (3 sources) [...] source) longterm (current) use of insulin; Translations: [PRISON CURRENT USE OF INSULIN] Onset: 07-14-2022 Episodic [...] width (RBC) [Ratio] 13.3 % Normal 11.5-15.0 [facility] Comment on above: Performed By: #### C JASON LÓPEZ, 3084-, 253-0 #### [facility] ([id number]) [address] [place] [address] 29330 Hematocrit (Bld) [Volume fraction] 33.1 % Low 35-47 [facility] Comment on above: Performed By: #### C JASON LÓPEZ, 308-, 2532-0 #### [facility] ([id number]) [address] [place] [address] 79434 Hemoglobin (Bld) [Mass/Vol] 11.6 g/dL Low 11.7-15.5 [facility] Comment on above: Performed By: #### C MARIBEL, CMP, 4-1, 2532-0 #### [facility] ([id number]) [address] [place] [address] 87647 MCH (RBC) [Entitic mass] 29.3 pg Normal 27-34 [facility] Comment on above: Performed By: #### Kaushik LÓPEZ CMP, 4-1, 2532-0 #### [facility] ([id number]) [address] [place] [address] 85536 MCHC (RBC) [Mass/Vol] 35.1 g/dL Normal 32-36 [facility] Comment on above: Performed By: #### Kaushik LÓPEZ CMP, 4-, 2532-0 #### [facility] ([id number]) [address] [place] [address] 51337 MCV (RBC) [Entitic vol] 83 fL Normal 80-100 [facility] Comment on above: Performed By: #### Kaushik LÓPEZ CMP, 3083-, 2532-0 #### [facility] ([id number]) [address] [place] [address] 98243 Platelet mean volume (Bld) [Entitic vol] 8.6 fL Normal 7-12 [facility] Comment on above: Performed By: #### Kaushik LÓPEZ CMP, 3083-, 2531-0 #### [facility] ([id number]) [address] [place] [address] 25084 Platelets (Bld) [#/Vol] 190 10*3/uL Normal 150-450 [facility] Comment on above: Performed By: #### Kaushik BC, CMP, 4-1, 2532-0 #### [facility] ([id number]) [address] [place] [address] 07123 RBC COUNT 3.97 X10E12/L Normal 3.80-5.20 [facility] Comment on above: Performed By: #### C BC, CMP, 3084-1, 2532-0 #### [facility] ([id number]) [address] [place] [address] 44865 WBC (Bld) [#/Vol] 10.0 10*3/uL Normal 4.0-11.0 [facility] Comment on above: Performed By: #### C BC, CMP, 3084-1, 2532-0 #### [facility] ([id number]) [address] [place] [address] 54132 COMPREHENSIVE METABOLIC PANE Jaylan 01-15-2024 Albumin [Mass/Vol] 2.9 g/dL Low 3.2-5.3 [facility] Comment on above: Performed By: #### Kaushik BC, CMP, 3084-1, 2532-0 #### [facility] ([id number]) [address] [place] [address] 25819 ALP [Catalytic activity/Vol] 99 U/L Normal 39-130 [facility] Comment on above: Performed By: #### C BC, CMP, 3084-1, 2532-0 #### [facility] ([id number]) [address] [place] [address] 51862 ALT [Catalytic activity/Vol] 18 U/L Normal 0-31 [facility] Comment on above: Performed By: #### Kaushik BC, CMP, 3084-1, 2532-0 #### [facility] ([id number]) [address] [place] [address] 63408 Anion gap [Moles/Vol] 8 mmol/L Normal 5-15 [facility] Comment on above: Performed By: #### C BC, CMP, 3084-1, 2532-0 #### [facility] ([id number]) [address] [place] [address] 59730 AST [Catalytic activity/Vol] 17 U/L Normal 0-41 [facility] Comment on above: Performed By: #### Kaushik LÓPEZ, CMP, 3084-1, 2532-0 #### [facility] ([id number]) [address] [place] [address] 67501 Bilirubin [Mass/Vol] 0.2 mg/dL Low 0.3-1.[address] [facility] Comment on above: Performed By: #### Kaushik LÓPEZ, CMP, 3083-, 2532-0 #### [facility] ([id number]) [address] [place] [address] 95190 Calcium [Mass/Vol] 8.7 mg/dL Normal 8.5-10.5 [facility] Comment on above: Performed By: #### Kaushik LÓPEZ CMP, 3083-, 2532-0 #### [facility] ([id number]) [address] [place] [address] 06349 Chloride [Moles/Vol] 107 mmol/L Normal 98-[address] [facility] Comment on above: Performed By: #### Kaushik LÓPEZ CMP, 3083-, 2532-0 #### [facility] ([id number]) [address] [place] [address] 09509 CO2 [Moles/Vol] 23 mmol/L Normal 22-32 [facility] Comment on above: Performed By: #### Kaushik LÓPEZ CMP, 3083-, 2532-0 #### [facility] ([id number]) [address] [place] [address] 99899 Creatinine [Mass/Vol] 0.52 mg/dL Normal 0.40-1.00 [facility] Comment on above: Result Comment: METH OD TRACEABLE TO IDMS STANDARD Performed By: #### Kaushik LÓPEZ, CMP, 3084-1, 2532-0 #### [facility] ([id number]) [address] [place] [address] 24563 eGFR (CKD-EPI) NON-RACE DEPENDENT >90 Normal >59 [facility] Comment on above: Result Comment: Reported eGFR is based on the CKD-EPI 2020 equation that does not use a race coefficient. Performed By: #### Kaushik LÓPEZ CMP, 3084-1, 2532-0 #### [facility] ([id number]) [address] [place] [address] 74516 Glucose [Mass/Vol] 106 mg/dL High 65-99 [facility] Comment on above: Performed By: #### Kaushik LÓPEZ CMP, 4-1, 2532-0 #### [facility] ([id number]) [address] [place] [address] 47544 Potassium [Moles/Vol] 3.7 mmol/L Normal 3.5-5.0 [facility] Comment on above: Performed By: #### Kaushik LÓPEZ CMP, 3083-, 2531-0 #### [facility] ([id number]) [address] [place] [address] 16698 Protein [Mass/Vol] 6.4 g/dL Normal 6.0-8.0 [facility] Comment on above: Performed By: #### Kaushik LÓPEZ CMP, 3084-, 2532-0 #### [facility] ([id number]) [address] [place] [address] 88462 Sodium [Moles/Vol] 138 mmol/L Normal 134-146 [facility] Comment on above: Performed By: #### Kaushik LÓPEZ CMP, 3083-1, 253-0 #### [facility] ([id number]) [address] [place] [address] 72040 Urea nitrogen [Mass/Vol] 9 mg/dL Normal 5-23 [facility] Comment on above: Performed By: #### Kaushik LÓPEZ CMP, 3084-1, 2532-0 #### [facility] ([id number]) [address] [place] [address] 58207 LDH [Catalytic activity/Vol] on 01-15-2024 LDH 143 U/L Normal 100-235 [facility] Comment on above: Performed By: #### B PHYLLIS, CBCA #### [facility] ([id number]) [address] [place] [address] 66971 URIC ACIDon 01-15-2024 Urate [Mass/Vol] 4.5 mg/dL Normal 2.6-7.2 [facility] Comment on above: Performed By: #### C BC, CMP, 3084-1, 2532-0 #### [facility] ([id number]) [address] [place] [address] 42954 URINALYSISon 01-15-2024 Bilirubin Ql (U) Negative Normal NEG [facility] Comment on above: Performed By: #### Curtis FERGUSON, CBCA #### [facility] ([id number]) [address] [place] [address] [place] [address] BLOOD/HGB Trace Abnormal NEG [facility] Comment on above: Performed By: #### Curtis FERGUSON, CBCA #### [facility] ([id number]) [address] [place] [address] 47593 Color (U) YELLOW Normal YELLOW [facility] Comment on above: Performed By: #### Curtis FERGUSON, CBCA #### [facility] ([id number]) [address] [place] [address] 28239 Glucose Ql (U) Negative Normal NEG [facility] Comment on above: Performed By: #### Curtis FERGUSON, CBCA #### [facility] ([id number]) [address] [place] [address], [place] [address] Ketones Ql (U) Negative Normal NEG [facility] Comment on above: Performed By: #### B PHYLLIS, CBCA #### [facility] ([id number]) [address] [place] [address] Leukocyte esterase Test strip Ql (U) Negative Normal NEG [facility] Comment on above: Performed By: #### B PHYLLIS, CBCA #### [facility] ([id number]) [address] [place] [address] 07487 Nitrite Ql (U) Negative Normal NEG [facility] Comment on above: Performed By: #### B PHYLLIS, CBCA #### [facility] ([id number]) [address] [place] [address] 58456 pH (U) 7.0 [pH] Normal 5.0-8.5 [facility] Comment on above: Performed By: #### B PHYLLIS, CBCA #### [facility] ([id number]) [address] [place] [address] 71320 Protein Ql (U) Negative Normal NEG [facility] Comment on above: Performed By: #### B PHYLLIS, CBCA #### [facility] ([id number]) [address] [place] [address] 67764 R.B.CELLS 0 /hpf Normal 0-5 [facility] Comment on above: Performed By: #### B PHYLLIS, CBCA #### [facility] ([id number]) [address] [place] [address] 71191 Specific gravity (U) [Rel density] 1.015 Normal 1.003-1.035 [facility] Comment on above: Performed By: #### B PHYLLIS, CBCA #### [facility] ([id number]) [address] [place] [address] 78093 SQUAMOUS EPITHELIUM 2 to 5 Normal 0-5 [facility] Comment on above: Performed By: #### B PHYLLIS, CBCA #### [facility] ([id number]) [address] [place] [address] 72790 TURBIDITY CLEAR Normal CLEAR [facility] Comment on above: Performed By: #### B PHYLLIS, CBCA #### [facility] ([id number]) [address] [place] [address] 81961 Urobilinogen Qn (U) 0.2 {Manolo'U}/dL Normal <1.1 [facility] Comment on above: Performed By: #### B PHYLLIS, CBCA #### [facility] ([id number]) [address] [place] [address] 92569 W.B.CELLS 2 to 5 Normal 0-5 [facility] Comment on above: Performed By: #### B PHYLLIS, CBCA #### [facility] ([id number]) [address] [place] [address] 96595 Chlamydia/GC,DNA Ampon 12-31 Chlamydia Probe Negative Normal NEG [facility] Comment on above: Result Comment: CHLA MYDIA [...] PROSAC, HOCYS, GLYHGB, TSH, LUPPRO, FT4 #### [facility] [address] [place] [address] Sleep Tech: Gideon Bullock MD #### AAFPM #### [address] [address] Sleep Tech: Gideon Bullock MD [address] [address] Sleep Tech: Fantasma Wood MD #### AF5MUT, AMTHFR, APTMUT #### [facility] [address] [place] [address] Sleep Tech: Fantasma Wood MD Gonorrhea Probe Negative Normal NEG [facility] Comment on above: Result Comment: NEIS SERIA [...] PROSAC, HOCYS, GLYHGB, TSH, LUPPRO, FT4 #### [address] [address] Sleep Tech: Gideon Bullock MD #### AAFPM #### [address] [address] Sleep Tech: Gideon Bullock MD [facility] [address] [place] [address] Sleep Tech: Fantasma Wood MD #### AF5MUT, AMTHFR, APTMUT #### [facility] [address] [place] [address] Sleep Tech: Fantasma Wood MD CBC with Diffon 12-31-2023 Abs. Basophil 0.03 k/uL Normal 0.00-0.20 [facility] Comment on above: Performed By: #### U VIVIEN URTPRT #### [facility] [address] [place] [address] Sleep Tech: Gideon Bullock MD Abs.Imm.Granulocyte 0.04 k/uL Normal 0.00-0.30 [facility] Comment on above: Performed By: #### U AMIKaushik URTPRT #### [address] [address] Sleep Tech: Gideon Bullock MD Abs.Neutrophil (Seg) 5.25 k/uL Normal 1.50-8.10 [facility] Comment on above: Performed By: #### U AMIC, URTPRT #### [address] [address] Sleep Tech: Gideon Bullock MD Basophils/100 WBC (Bld) 0 % Normal 0-2 [facility] Comment on above: Performed By: #### U AMIC, URTPRT #### [address] [address] Sleep Tech: Gideon Bullock MD Eosinophils (Bld) [#/Vol] 0.18 10*3/uL Normal 0.00-0.44 [facility] Comment on above: Performed By: #### U AMIC, URTPRT #### [address] [address] Sleep Tech: Gideon Bullock MD Eosinophils/100 WBC (Bld) 2 % Normal 1-4 [facility] Comment on above: Performed By: #### U AMIC, URTPRT #### [address] [address] Sleep Tech: Gideon Bullock MD Erythrocyte distribution width (RBC) [Ratio] 13.1 % Normal 11.8-14.4 [facility] Comment on above: Performed By: #### U AMIC, URTPRT #### [address] [address] Sleep Tech: Gideon Bullock MD Hematocrit (Bld) [Volume fraction] 35.1 % Low 36.3-47.1 [facility] Comment on above: Performed By: #### U AMIC, URTPRT #### [facility] [address] [place] [address] Sleep Tech: Gideon Bullock MD Hemoglobin (Bld) [Mass/Vol] 11.9 g/dL Normal 11.9-15.1 [facility] Comment on above: Performed By: #### U AMIC, URTPRT #### [address] [address] Sleep Tech: Gideon Bullock MD Immature granulocytes/100 WBC (Bld) 1 % High 0 [facility] Comment on above: Performed By: #### U AMIC, URTPRT #### [address] [address] Sleep Tech: Gideon Bullock MD Lymphocytes (Bld) [#/Vol] 1.81 10*3/uL Normal 1.10-3.70 [facility] Comment on above: Performed By: #### U AMIC, URTPRT #### [address] [address] Sleep Tech: Gideon Bullock MD Lymphocytes/100 WBC (Bld) 23 % Low 24-43 [facility] Comment on above: Performed By: #### U AMIC, URTPRT #### [address] [address] Sleep Tech: Gideon Bullock MD MCH (RBC) [Entitic mass] 28.9 pg Normal 25.2-33.5 [facility] Comment on above: Performed By: #### U AMIC, URTPRT #### [place] [address] Sleep Tech: Gideon Bullock MD MCHC (RBC) [Mass/Vol] 33.9 g/dL Normal 28.4-34.8 [facility] Comment on above: Performed By: #### U AMIC, URTPRT #### [address] [address] Sleep Tech: Gideon Bullock MD MCV (RBC) [Entitic vol] 85.2 fL Normal 82.6-102.9 [facility] Comment on above: Performed By: #### U AMIC, URTPRT #### [address] [address] Sleep Tech: Gideon Bullock MD Monocytes (Bld) [#/Vol] 0.62 10*3/uL Normal 0.10-1.20 [facility] Comment on above: Performed By: #### U AMIC, URTPRT #### [address] [address] Sleep Tech: Gideon Bullock MD Monocytes/100 WBC (Bld) 8 % Normal 3-12 [facility] Comment on above: Performed By: #### U AMIC, URTPRT #### [address] [address] Sleep Tech: Gideon Bullock MD Neutrophil (Seg) 66 % High 36-65 [facility] Comment on above: Performed By: #### U AMIC, URTPRT #### [address] [address] Sleep Tech: Gideon Bullock MD NRBC Automated 0.0 per 100 WBC Normal 0.0 [facility] Comment on above: Performed By: #### U AMIC, URTPRT #### [address] [address] Sleep Tech: Gideon Bullock MD Platelet mean volume (Bld) [Entitic vol] 10.9 fL Normal 8.1-13.5 [facility] Comment on above: Performed By: #### U AMIC, URTPRT #### [address] [address] Sleep Tech: Gideon Bullock MD Platelets (Bld) [#/Vol] 175 10*3/uL Normal 138-453 [facility] Comment on above: Performed By: #### U AMIC, URTPRT #### [address] [address] Sleep Tech: Gideon Bullock MD RBC (Bld) [#/Vol] 4.12 10*6/uL Normal 3.95-5.11 [facility] Comment on above: Performed By: #### U AMIC, URTPRT #### [address] [address] Sleep Tech: Gideon Bullock MD WBC (Bld) [#/Vol] 7.9 10*3/uL Normal 3.5-11.3 [facility] Comment on above: Performed By: #### U AMIC, URTPRT #### [address] [address] Sleep Tech: Gideon Bullock MD Comp Metabolic Profon 2023 Albumin [Mass/Vol] 3.7 g/dL Normal 3.5-5.2 [facility] Comment on above: Performed By: #### U AMIC, URTPRT #### [address] [address] Sleep Tech: Gideon Bullock MD Albumin/Glob Ratio 1.0 Normal 1.0-2.5 [facility] Comment on above: Performed By: #### U AMIC, URTPRT #### [address] [address] Sleep Tech: Gideon Bullock MD Alkaline Phos 105 U/L High 35-104 [facility] Comment on above: Performed By: #### U AMIC, URTPRT #### [facility] [address] [place] [address] Sleep Tech: Gideon Bullock MD ALT [Catalytic activity/Vol] 18 U/L Normal 10-35 [facility] Comment on above: Performed By: #### U AMIC, URTPRT #### [facility] [address] [place] [address] Sleep Tech: Gideon Bullock MD Anion gap [Moles/Vol] 10 mmol/L Normal 9-16 [facility] Comment on above: Performed By: #### U AMIC, URTPRT #### [address] [address] Sleep Tech: Gideon Bullock MD AST [Catalytic activity/Vol] 16 U/L Normal 10-35 [facility] Comment on above: Performed By: #### U AMIC, URTPRT #### [facility] [address] [place] [address] Sleep Tech: Gideon Bullock MD Bilirubin [Mass/Vol] 0.2 mg/dL Normal 0.00-1.20 [facility] Comment on above: Performed By: #### U AMIC, URTPRT #### [facility] [address] [place] [address] Sleep Tech: Gideon Bullock MD Calcium [Mass/Vol] 9.0 mg/dL Normal 8.6-10.4 [facility] Comment on above: Performed By: #### U AMIC, URTPRT #### [facility] [address] [place] [address] Sleep Tech: Gideon Bullock MD Chloride [Moles/Vol] 106 mmol/L Normal 98-107 [facility] Comment on above: Performed By: #### U AMIC, URTPRT #### [facility] [address] [place] [address] Sleep Tech: Gideon Bullock MD CO2 [Moles/Vol] 21 mmol/L Normal 20-31 [facility] Comment on above: Performed By: #### U AMIC, URTPRT #### [facility] [address] [place] [address] Sleep Tech: Gideon Bullock MD Creatinine [Mass/Vol] 0.4 mg/dL Low 0.50-0.90 [facility] Comment on above: Performed By: #### U AMIC, URTPRT #### [address] [address] Sleep Tech: Gideon Bullock MD GFR/1.73 sq M.predicted among non-blacks MDRD (S/P/Bld) [Vol rate/Area] mL/min/{1.73_m2} Normal >60 [facility] Comment on above: Result Comment: These results [...] Performed By: #### U AMIC, URTPRT #### [facility] [address] [place] [address] Sleep Tech: Gideon Bullock MD Glucose [Mass/Vol] 74 mg/dL Normal 74-99 [facility] Comment on above: Performed By: #### U AMIC, URTPRT #### [facility] [address] [place] [address] Sleep Tech: Gideon Bullock MD Potassium [Moles/Vol] 3.9 mmol/L Normal 3.7-5.3 [facility] Comment on above: Performed By: #### U AMIC, URTPRT #### [facility] [address] [place] [address] Sleep Tech: Gideon Bullock MD Protein [Mass/Vol] 6.9 g/dL Normal 6.6-8.7 [facility] Comment on above: Performed By: #### U AMIC, URTPRT #### [facility] [address] [place] [address] Sleep Tech: Gideon Bullock MD Sodium [Moles/Vol] 137 mmol/L Normal 136-145 [facility] Comment on above: Performed By: #### U AMIC, URTPRT #### [address] [address] Sleep Tech: Gideon Bullock MD Urea nitrogen [Mass/Vol] 9 mg/dL Normal 6-20 [facility] Comment on above: Performed By: #### U AMIC, URTPRT #### [address] [address] Sleep Tech: Gideon Bullock MD Protein,Tot,[place] Uron 2023 Creatinine [Mass/Vol] 123.0 mg/dL Normal 28.0-217.0 [facility] Comment on above: Performed By: #### U AMIC, URTPRT #### [address] [address] Sleep Tech: Gideon Bullock MD Tot Prot. Conc. 14 mg/dL Normal [facility] Comment on above: Result Comment: No n ormal range established. Performed By: #### U AMIC, URTPRT #### [address] [address] Sleep Tech: Gideon Bullock MD TP/Cre Ratio 0.12 Normal [facility] Comment on above: Performed By: #### U AMIC, URTPRT #### [address] [address] Sleep Tech: Gideon Bullock MD Urinalysis w/ Microon 2023 Bacteria None Normal NONE [facility] Comment on above: Performed By: #### U AMIC, URTPRT #### [address] [address] Sleep Tech: Gideon Bullock MD Bilirubin, SemiQt,Ur Negative Normal NEG [facility] Comment on above: Performed By: #### U AMIC, URTPRT #### [address] [address] Sleep Tech: Gideon Bullock MD Blood, Urine MODERATE Abnormal NEG [facility] Comment on above: Performed By: #### U AMIC, URTPRT #### [address] [address] Sleep Tech: Gideon Bullock MD Casts 0 TO 2 HYALINE Normal 0-8 [facility] Comment on above: Result Comment: Refe rence range defined for non-centrifuged specimen. Performed By: #### U AMIC, URTPRT #### [address] [address] Sleep Tech: Gideon Bullock MD Clarity (U) Clear Normal CLEAR [facility] Comment on above: Performed By: #### U AMIC, URTPRT #### [address] [address] Sleep Tech: Gideon Bullock MD Color (U) Yellow Normal YEL [facility] Comment on above: Performed By: #### U AMIC, URTPRT #### [address] [address] Sleep Tech: Gideon Bullock MD Epithelial cells LM Ql (Urine sed) 5 TO 10 Normal 0-5 [facility] Comment on above: Performed By: #### U AMIC, URTPRT #### [address] [address] Sleep Tech: Gideon Bullock MD Glucose Ql (U) Negative Normal NEG [facility] Comment on above: Performed By: #### U AMIC, URTPRT #### [address] [address] Sleep Tech: Gideon Bullock MD Ketones Ql (U) Negative Normal NEG [facility] Comment on above: Performed By: #### U AMIC, URTPRT #### [facility] [address] [place] [address] Sleep Tech: Gideon Bullock MD Leukocyte esterase Test strip Ql (U) TRACE Abnormal NEG [facility] Comment on above: Performed By: #### U AMIC, URTPRT #### [facility] [address] [place] [address] Sleep Tech: Gideon Bullock MD Nitrite,Ur Negative Normal NEG [facility] Comment on above: Performed By: #### U AMIC, URTPRT #### [address] [address] Sleep Tech: Gideon Bullock MD PH,Ur 6.0 Normal 5.0-8.0 [facility] Comment on above: Performed By: #### U AMIC, URTPRT #### [facility] [address] [place] [address] Sleep Tech: Gideon Bullock MD Protein Ql (U) Negative Normal NEG [facility] Comment on above: Performed By: #### U AMIC, URTPRT #### [facility] [address] [place] [address] Sleep Tech: Gideon Bullock MD Spec. [place],Ur 1.021 Normal 1.005-1.030 [facility] Comment on above: Performed By: #### U AMIC, URTPRT #### [facility] [address] [place] [address] Sleep Tech: Gideon Bullock MD Urine RBC's 20 TO 50 Normal 0-4 [facility] Comment on above: Result Comment: Refe rence range defined for non-centrifuged specimen. Performed By: #### U AMIC, URTPRT #### [address] [address] Sleep Tech: Gideon Bullock MD Urine WBC's 0 TO 2 Normal 0-5 [facility] Comment on above: Performed By: #### U AMIC, URTPRT #### [address] [address] Sleep Tech: Gideon Bullock MD Urobilinogen,Ur Normal Normal 0.0-1.0 [facility] Comment on above: Performed By: #### U AMIC, URTPRT #### [address] [address] Sleep Tech: Gideon Bullock MD Vaginitis DNA Probeon 2023 Litzy Negative Normal NEG [facility] Comment on above: Result Comment: for Litzy sp. Method of testing is a DNA probe intended for detection and identification of Litzy species, Gardnerella vaginalis, and Trichomonas vaginalis nucleic acid in vaginal fluid specimens from patients with symptoms of vaginitis/vaginosis. Performed By: #### U AMIC, URTPRT #### [address] [address] Sleep Tech: Gideon Bullock MD Gardnerella Positive Abnormal NEG [facility] Comment on above: Result Comment: for Gardnerella vaginalis Performed By: #### U AMIC, URTPRT #### [address] [address] Sleep Tech: Gideon Bullock MD Trichomonas Negative Normal NEG [facility] Comment on above: Result Comment: for Trichomonas Vaginalis Performed By: #### U AMIC, URTPRT #### [facility] [address] [place] [address] Sleep Tech: Gideon Bullock MD Source .VAGINAL SWAB Normal [facility] Comment on above: Performed By: #### U AMIC, URTPRT #### [address] [address] Sleep Tech: Gideon Bullock MD Thyroid Stim. Horm.on 2023 Thyroid Stim. Horm. 1.48 uIU/mL Normal 0.27-4.20 [facility] Comment on above: Performed By: #### U AMIC, URTPRT #### [address] [address] Sleep Tech: Gideon Bullock MD Thyroxine, Freeon 12-06-2023 Thyroxine, Free 0.9 ng/dL Low 0.92-1.68 [facility] Comment on above: Performed By: #### U AMIC, URTPRT #### [address] [address] Sleep Tech: Gideon Bullock MD Thyroid Stim. Horm.on 2023 Thyroid Stim. Horm. 1.66 uIU/mL Normal 0.27-4.20 [facility] Comment on above: Performed By: #### P ROCAC, AT3A, PROSAC, HOCYS, GLYHGB, TSH, LUPPRO, FT4 #### [address] [address] Sleep Tech: Gidoen Bullock MD #### AAFPM #### [address] [address] Sleep Tech: Gideon Bullock MD [facility] [address] [place] [address] Sleep Tech: Fantasma Wood MD #### AF5MUT, AMTHFR, APTMUT #### [facility] [address] [place] [address] Sleep Tech: Fanatsma Wood MD Thyroxine, Freeon 11-08-2023 Thyroxine, Free 0.9 ng/dL Low 0.92-1.68 [facility] Comment on above: Performed By: #### P ROCAC, AT3A, PROSAC, HOCYS, GLYHGB, TSH, LUPPRO, FT4 #### [facility] [address] [place] [address] Sleep Tech: Gideon Bullock MD #### AAFPM #### [facility] [address] [place] [address] Sleep Tech: Gideon Bullock MD [facility] [address] [place] [address] Sleep Tech: Fantasma Wood MD #### AF5MUT, AMTHFR, APTMUT #### [facility] [address] [place], [place] [id number] Sleep Tech: Fantasma Wood MD PT Mutation [id number] 10-13-19 24 PT [id number] VARIANT Negative Normal [facility] Comment on above: Result Comment: (NOT E) Indication for testing: Assess genetic risk for thrombosis. NEGATIVE: The Factor II, prothrombin M57221M mutation, was not detected. Other causes of [...] Dsouza, Ph.D. 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 PATHOGENIC VARIANT TESTED: F2 c.*97G>A (H81418N). CLINICAL SENSITIVITY FOR VENOUS THROMBOSIS: Approximately 10 percent. METHODOLOGY: Polymerase chain reaction and fluorescence monitoring. ANALYTICAL SENSITIVITY AND SPECIFICITY: 99 percent. LIMITATIONS: Diagnostic errors can occur due to rare sequence variations. F2 gene variants, other than c.*97G>A (Z21933W), will not be detected. This test was developed and its performance characteristics determined by [facility]. It has not been cleared or approved by the [place] Food and Drug Administration. This test was performed in a CLIA certified laboratory and is intended for clinical purposes. Counseling and informed consent are recommended for genetic testing. Consent forms are available online. Performed By: [facility] [address] [place] [address] Rn Psychiatric: Andrew Duran MD, PhD CLIA Number: [id number] Performed By: #### U AMIHangtime, URTPRT #### [place] [id number] Sleep Tech: Gideon Bullock MD PT PCR SPECIMEN Whole Blood Normal [facility] Comment on above: Performed By: #### U AMIC, URTPRT #### [facility] [address] [place] [address] [phone] Sleep Tech: Gideon Bullock MD Factor V Mutationon 10-12-19 24 F 5 SPECIMEN Whole Blood Normal [facility] Comment on above: Performed By: #### U AMIC, URTPRT #### [facility] [address] [place] [address] [phone] Sleep Tech: Gideon Bullock MD FACTOR [address] [facility] Comment on above: Result Comment: (NOT E) Indication for testing: Assess genetic risk for thrombosis. NEGATIVE: The factor V Leiden variant, c.1601G>A; p.Shl002Nsl, was not detected. This does not exclude a genetic cause for thrombophilia. If this individual has had a previous venous thromboembolism, this negative result is unlikely to significantly reduce the risk for recurrence; thus, future clinical management to reduce recurrence should not be altered. This result has been reviewed and approved by Agnella Dsouza, Ph.D. BACKGROUND INFORMATION: Factor V Leiden [...] function in the F5 gene variant c.1601G>A (p.Eda261Bbh). Legacy nomenclature: R506Q (1691G>A) CLINICAL SENSITIVITY: 20-50 percent of individuals with an isolated VTE have the FVL variant. METHODOLOGY: Polymerase chain reaction and fluorescence monitoring. ANALYTICAL SENSITIVITY AND SPECIFICITY: 99 percent. LIMITATIONS: Diagnostic errors can occur due to rare sequence variations. F5 gene mutations, other than p.Jiy522Ynd, will not be detected. This test was developed and its performance characteristics determined by [facility]. It has not been cleared or approved by the [place] Food and Drug Administration. This test was performed in a CLIA certified laboratory and is intended for clinical purposes. Counseling and informed consent are recommended for genetic testing. Consent forms are available online. Performed By: [facility] [address] [place] [address] Rn Psychiatric: Andrew Duran MD, PhD CLIA Number: [id number] Performed By: #### U AMIC, URTPRT #### [facility] [address] [place] [address] Sleep Tech: Gideon Bullock MD MTHFR Gene Mutationon 2023 MTHFR 1286 A>C Mut Heterozygous Normal [facility] Comment on above: Performed By: #### U AMIC, URTPRT #### [facility] [address] [place] [address] Sleep Tech: Gideon Bullock MD MTHFR 655C>T Mut Negative Normal [facility] Comment on above: Performed By: #### U AMIC, URTPRT #### [facility] [address] [place] [address] Sleep Tech: Gideon Bullock MD MTHFR Interpretation See Note Normal [facility] Comment on above: Result Comment: (NOT E) Indication for testing: Determine genetic contribution to hyperhomocysteinemia. 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 The [place] [employer] Practice Guidelines indicate [...] a contributing factor to hyperhomocysteinemia. Variants Tested: c.665C>T(p.Oac787Pik) and c.1286A>C(p.Ydz589Wgd). (legacy names C677T and Z5860D, respectively). Clinical Sensitivity: Undefined; hyperhomocysteinemia is caused [...] developed and its performance characteristics determined by [facility]. It has not been cleared or approved by the [place] Food and Drug Administration. This test was performed in a CLIA certified laboratory and is intended for clinical purposes. Counseling and informed consent are recommended for genetic testing. Consent forms are available online. Performed By: [facility] [address] [place] [address] Rn Psychiatric: Andrew Duran MD, PhD CLIA Number: [id number] Performed By: #### U AMIC, URTPRT #### [facility] [place], [place] [id number] Sleep Tech: Gideon Bullock MD MTHFR SPECIMEN Whole Blood Normal [facility] Comment on above: Performed By: #### U AMIC, URTPRT #### [facility] [place], [place] [id number] Sleep Tech: Gideon Bullock MD AFP, Maternalon 10-11-2023 Determined by Ultrasound Normal [facility] Comment on above: Performed By: #### U AMIC, URTPRT #### [facility] [place], [place] [id number] Sleep Tech: Gideon Bullock MD Due Date SEE NOTE Normal [facility] Comment on above: Result Comment: Resu lts for Estimated Due Date: 02 26 24 Performed By: #### U AMIC, URTPRT #### [address] [address] Sleep Tech: Gideon Bullock MD Family History No Normal [facility] Comment on above: Performed By: #### U AMIC, URTPRT #### [facility] [address] [place] [address] Sleep Tech: Gideon Bullock MD Gestat Age (exact) 20 wks, [address] [facility] Comment on above: Performed By: #### U AMIC, URTPRT #### [facility] [address] [place] [address] Sleep Tech: Gideon Bullock MD Ins Req Matern Diab Yes Normal [facility] Comment on above: Performed By: #### U AMIC, URTPRT #### [facility] [address] [place] [address]277 Sleep Tech: Gideon Bullock MD Interpretation Screen Neg Normal [facility] Comment on above: Result Comment: (NOT E) [...] developed and its performance characteristics determined by [facility]. It has not been cleared or approved by the [place] Food and Drug Administration. This test was performed in a CLIA certified laboratory and is intended for clinical purposes. Performed By: #### U AMIC, URTPRT #### [address] [address] Sleep Tech: Gideon Bullock MD [age] [facility] Comment on above: Performed By: #### U AMIC, URTPRT #### [facility] [address] [place] [address] Sleep Tech: Gideon Bullock MD Maternal Race Nonblack [facility] Comment on above: Performed By: #### U AMIC, URTPRT #### [facility] [address] [place] [address] Sleep Tech: Gideon Bullock MD Maternal Weight 298.0 lbs. [facility] Comment on above: Performed By: #### U AMIC, URTPRT #### [facility] [address] [place] [address] Sleep Tech: Gideon Bullock MD MoM for AFP 1.29 [facility] Comment on above: Performed By: #### U AMIC, URTPRT #### [facility] [address] [place] [address] Sleep Tech: Gideon Bullock MD Number of Fetuses [facility] Comment on above: Performed By: #### U AMIC, URTPRT #### [facility] [address] [place] [address] Sleep Tech: Gideon Bullock MD Patient's AFP 39 ng/mL [facility] Comment on above: Performed By: #### U AMIC, URTPRT #### [facility] [address] [place] [address]395 Sleep Tech: Gideon Bullock MD Smoking No [facility] Comment on above: Performed By: #### U AMIC, URTPRT #### [facility] [address] [place] [address] Sleep Tech: Gideon Bullock MD Specimen See Note [facility] Comment on above: Result Comment: (NOT E) Initial sample Performed By: [facility] [address] [place] [address] Rn Psychiatric: Andrew Duran MD, PhD CLIA Number: [id number] Performed By: #### U AMIC, URTPRT #### [facility] [address] [place] [address] Sleep Tech: Gideon Bullock MD AFP, Maternalon 10-10-2023 Current Smoking NO [facility] Comment on above: Performed By: #### U AMIC, URTPRT #### [facility] [address] [place] [address] Sleep Tech: Gideon Bullock MD Dating [facility] Comment on above: Performed By: #### U AMIC, URTPRT #### [facility] [address] [place] [address] Sleep Tech: Gideon Bullock MD Diabetic YES [facility] Comment on above: Performed By: #### U AMIC, URTPRT #### [facility] [address] [place] [address] Sleep Tech: Gideon Bullock MD Donor Egg NO [facility] Comment on above: Performed By: #### U AMIC, URTPRT #### [facility] [address] [place] [address] Sleep Tech: Gideon Bullock MD Estimated Due Date [facility] Comment on above: Performed By: #### U AMIC, URTPRT #### [facility] [address] [place] [address] Sleep Tech: Gideon Bullock MD Family History NONE [facility] Comment on above: Performed By: #### U AMIC, URTPRT #### [facility] [address] [place] [address] Sleep Tech: Gideon Bullock MD In Vitro Fertalizat NO [facility] Comment on above: Performed By: #### U AMIC, URTPRT #### [facility] [address] [place] [address] Sleep Tech: Gideon Bullock MD LMP date [id number] [facility] Comment on above: Performed By: #### U AMIC, URTPRT #### [facility] [address] [place] [address] Sleep Tech: Gideon Bullock MD Maternal date [facility] Comment on above: Performed By: #### U AMIC, URTPRT #### [facility] [address] [place] [address] Sleep Tech: Gideon Bullock MD Maternal Weight 298 [facility] Comment on above: Performed By: #### U AMIC, URTPRT #### [facility] [address] [place] [address] Sleep Tech: Gideon Bullock MD Monochorionic Twins NO [facility] Comment on above: Performed By: #### U AMIC, URTPRT #### [facility] [address] [place] [address] Sleep Tech: Gideon Bullock MD Patient Weight Units [facility] Comment on above: Performed By: #### U AMIC, URTPRT #### [facility] [address] [place] [address] Sleep Tech: Gideon Bullock MD Race (Maternal) NON BLACK [facility] Comment on above: Performed By: #### U AMIC, URTPRT #### [facility] [address] [place] [address] Sleep Tech: Gideon Bullock MD Repeat Specimen NO [facility] Comment on above: Performed By: #### U AMIC, URTPRT #### [address] [address] Sleep Tech: Gideon Bullock MD Valproic/Carbamazep NONE Normal [facility] Comment on above: Performed By: #### U AMIC, URTPRT #### [address] [address] Sleep Tech: Gideon Bullock MD Antithrombin III Kasia 10-09 Antithrombin III Act 110 % Normal 83-122 [facility] Comment on above: Result Comment: Patients receiving Hirudin may have a falsely decreased Antitrombin III Activity. Performed By: #### P ROCAC, AT3A, PROSAC, HOCYS, GLYHGB, TSH, LUPPRO, FT4 #### [address] [address] Sleep Tech: Gideon Bullock MD #### AAFPM #### [address] [address] Sleep Tech: Gideon Bullock MD [address] [phone] Sleep Tech: Fantasma Wood MD #### AF5MUT, AMTHFR, APTMUT #### [address] [phone] Sleep Tech: Fantasma Wood MD Lupus Anticoagulanton 2 Anticardiolipin IgA 1.8 APL Normal 0.0-14.0 [facility] Comment on above: Result Comment: Reference Range: <14.0 Negative 14.0-20.0 Equivocal >20.0 Positive When results are Equivocal, it is recommended to retest after 4-6 weeks. Performed By: #### P ROCAC, AT3A, PROSAC, HOCYS, GLYHGB, TSH, LUPPRO, FT4 #### [address] [address] Sleep Tech: Gideon Bullock MD #### AAFPM #### [address] [address] Sleep Tech: Gideon Bullock MD [address] [phone] Sleep Tech: Fantasma Wood MD #### AF5MUT, AMTHFR, APTMUT #### [address] [phone] Sleep Tech: Fantasma Wood MD Anticardiolipin IgG <0.5 Normal 0.0-10.0 [facility] Comment on above: Result Comment: Reference Range: <10.0 Negative 10.0-40.0 Equivocal >40.0 Positive Performed By: #### P ROCAC, AT3A, PROSAC, HOCYS, GLYHGB, TSH, LUPPRO, FT4 #### [address] [address] Sleep Tech: Gideon Bullock MD #### AAFPM #### [address] [address] Sleep Tech: Gideon Bullock MD [address] [phone] Sleep Tech: Fantasma Wood MD #### AF5MUT, AMTHFR, APTMUT #### [address] [phone] Sleep Tech: Fantasma Wood MD Anticardiolipin IgM <0.8 Normal 0.0-10.0 [facility] Comment on above: Result Comment: Reference Range: <10.0 Negative 10.0-40.0 Equivocal >40.0 Positive Performed By: #### P ROCAC, AT3A, PROSAC, HOCYS, GLYHGB, TSH, LUPPRO, FT4 #### [address] [address] Sleep Tech: Gideon Bullock MD #### AAFPM #### [address] [address] Sleep Tech: Gideon Bullock MD [facility] [address] [place] [address] Sleep Tech: Fantasma Wood MD #### AF5MUT, AMTHFR, APTMUT #### [facility] [address] [place] [address] Sleep Tech: Fantasma Wood MD Dilute Heladio Viper Negative Normal [facility] Comment on above: Performed By: #### P ROCAC, AT3A, PROSAC, HOCYS, GLYHGB, TSH, LUPPRO, FT4 #### [address] [address] Sleep Tech: Gideon Bullock MD #### AAFPM #### [address] [address] Sleep Tech: Gideon Bullock MD [facility] [address] [place] [address] Sleep Tech: Fantasma Wood MD #### AF5MUT, AMTHFR, APTMUT #### [facility] [address] [place] [address] Sleep Tech: Fantasma Wood MD Protein C Activityon 024 Protein C Activity 136 % Normal >80 [facility] Comment on above: Result Comment: Patients on [...] PROSAC, HOCYS, GLYHGB, TSH, LUPPRO, FT4 #### [facility] [address] [place] [address] [phone] Sleep Tech: Gideon Bullock MD #### AAFPM #### [address] [address] Sleep Tech: Gideon Bullock MD [facility] [address] [place] [address] Sleep Tech: Fantasma Wood MD #### AF5MUT, AMTHFR, APTMUT #### [facility] [address] [place] [address] Sleep Tech: Fantasma Wood MD Protein S Activityon 024 Protein S Activity 68 % Normal 59-130 [facility] Comment on above: Result Comment: Patients on [...] PROSAC, HOCYS, GLYHGB, TSH, LUPPRO, FT4 #### [address] [address] Sleep Tech: Gideon Bullock MD #### AAFPM #### [address] [address] Sleep Tech: Gideon Bullock MD [facility] [address] [place], [place] [phone] Sleep Tech: Fantasma Wood MD #### AF5MUT, AMTHFR, APTMUT #### [facility] [address] [place] [address] Sleep Tech: Fantasma Wood MD Hemoglobin A1Con 10-09-2023 Glucose [Mass/Vol] 103 mg/dL Normal [facility] Comment on above: Result Comment: The ADA and AACC recommend providing the estimated average glucose result to permit better patient understanding of their HBA1c result. Performed By: #### P ROCAC, AT3A, PROSAC, HOCYS, GLYHGB, TSH, LUPPRO, FT4 #### [facility] [address] [place] [address] Sleep Tech: Gideon Bullock MD #### AAFPM #### [address] [address] Sleep Tech: Gideon Bullock MD [facility] [address] [place] [address] Sleep Tech: Fantasma Wood MD #### AF5MUT, AMTHFR, APTMUT #### [facility] [address] [place] [address] Sleep Tech: Fantasma Wood MD HbA1c (Bld) [Mass fraction] 5.2 % Normal 4.0-6.0 [facility] Comment on above: Performed By: #### P ROCAC, AT3A, PROSAC, HOCYS, GLYHGB, TSH, LUPPRO, FT4 #### [address] [address] Sleep Tech: Gideon Bullock MD #### AAFPM #### [address] [address] Sleep Tech: Gideon Bullock MD [facility] [address] [place] [address] Sleep Tech: Fantasma Wood MD #### AF5MUT, AMTHFR, APTMUT #### [facility] [address] [place] [address] Sleep Tech: Fantasma Wood MD Homocysteineon 10-09-2023 Homocysteine 4.3 umol/L Normal 0.0-15.0 [facility] Comment on above: Performed By: #### P ROCAC, AT3A, PROSAC, HOCYS, GLYHGB, TSH, LUPPRO, FT4 #### [address] [address] Sleep Tech: Gideon Bullock MD #### AAFPM #### [address] [address] Sleep Tech: Gideon Bullock MD [address] [id number] Sleep Tech: Fantasma Wood MD #### AF5MUT, AMTHFR, APTMUT #### [address] [id number] Sleep Tech: Fantasma Wood MD Lupus Anticoagulanton 2023 aPTT Coag (Bld) [Time] 27.5 s Normal 23.0-36.5 [facility] Comment on above: Result Comment: IV Heparin Therapy Range: 66.0-92.0 sec Performed By: #### P ROCAC, AT3A, PROSAC, HOCYS, GLYHGB, TSH, LUPPRO, FT4 #### [address] [address] Sleep Tech: Gideon Bullock MD #### AAFPM #### [address] [address] Sleep Tech: Gideon Bullock MD [address] [phone] Sleep Tech: Fantasma Wood MD #### AF5MUT, AMTHFR, APTMUT #### [facility] [address] [place], [place] [id number] Sleep Tech: Fantasma Wood MD INR Coag (PPP) [Relative time] 1.0 {INR} Normal [facility] Comment on above: Result Comment: Therapeutic Range: Moderate Anticoagulant Intensity: INR = 2.0-3.0 High Anticoagulant Intensity: INR = 2.5-3.5 Performed By: #### P ROCAC, AT3A, PROSAC, HOCYS, GLYHGB, TSH, LUPPRO, FT4 #### [address] [address] Sleep Tech: Gideon Bullock MD #### AAFPM #### [address] [address] Sleep Tech: Gideon Bullock MD [facility] [address] [place], [place] [id number] Sleep Tech: Fantasma Wood MD #### AF5MUT, AMTHFR, APTMUT #### [facility] [address] [place] [address] Sleep Tech: Fantasma Wood MD PT Coag (PPP) [Time] 13.1 s Normal 11.7-14.9 [facility] Comment on above: Performed By: #### P ROCAC, AT3A, PROSAC, HOCYS, GLYHGB, TSH, LUPPRO, FT4 #### [address] [address] Sleep Tech: Gideon Bullock MD #### AAFPM #### [address] [address] Sleep Tech: Gideon Bullock MD [facility] [address] [place], [place] [id number] Sleep Tech: Fantasma Wood MD #### AF5MUT, AMTHFR, APTMUT #### [facility] [address] [place] [address] Sleep Tech: Fantasma Wood MD Protein,Tot,[place] Uron 2023 Creatinine [Mass/Vol] 120.0 mg/dL Normal 28.0-217.0 [facility] Comment on above: Performed By: #### U AMIC, URTPRT #### [address] [address] Sleep Tech: Gideon Bullock MD Tot Prot. Conc. 10 mg/dL Normal [facility] Comment on above: Result Comment: No n ormal range established. Performed By: #### U AMIC, URTPRT #### [address] [address] Sleep Tech: Gideon Bullock MD TP/Cre Ratio 0.08 Normal [facility] Comment on above: Performed By: #### U AMIC, URTPRT #### [address] [address] Sleep Tech: Gidoen Bullock MD Thyroid Stim. Horm.on 2023 Thyroid Stim. Horm. 2.35 uIU/mL Normal 0.27-4.20 [facility] Comment on above: Performed By: #### P ROCAC, AT3A, PROSAC, HOCYS, GLYHGB, TSH, LUPPRO, FT4 #### [address] [address] Sleep Tech: Gideon Bullock MD #### AAFPM #### [address] [address] Sleep Tech: Gideon Bullock MD [address] [address] Sleep Tech: Fantasma Wood MD #### AF5MUT, AMTHFR, APTMUT #### [address] [address] Sleep Tech: Fantasma Wood MD Thyroxine, Freeon 10-09-2023 Thyroxine, Free 0.9 ng/dL Low 0.92-1.68 [facility] Comment on above: Performed By: #### P ROCAC, AT3A, PROSAC, HOCYS, GLYHGB, TSH, LUPPRO, FT4 #### [address] [address] Sleep Tech: Gideon Bullock MD #### AAFPM #### [address] [address] Sleep Tech: Gideon Bullock MD [facility] [address] [place] [address] Sleep Tech: Fantasma Wood MD #### AF5MUT, AMTHFR, APTMUT #### [facility] [address] [place] [address] Sleep Tech: Fantasma Wood MD XR FOOT RT MIN [...] Blas MD on 09/10/2023 12:57 PM Normal [facility] MR BRAIN W WO CONTon 024 MR [...] Rice MD on 06/14/2023 8:30 AM Normal [facility] BASIC METABOLIC PANLon 05-16 Anion gap [Moles/Vol] 10 mmol/L Normal 5-15 [facility] Comment on above: Performed By: #### B JOSE FERGUSON #### [facility] ([id number]) [address] [place] [address] Calcium [Mass/Vol] 8.9 mg/dL Normal 8.5-10.5 [facility] Comment on above: Performed By: #### B JOSE FERGUSON #### [facility] ([id number]) [address] [place] [address] Chloride [Moles/Vol] 107 mmol/L Normal 98-[address] [facility] Comment on above: Performed By: #### B JOSE FERGUSON #### [facility] ([id number]) [address] [place] [address] CO2 [Moles/Vol] 18 mmol/L Low 22-32 [facility] Comment on above: Performed By: #### B JOSE FERGUSON #### [facility] ([id number]) [address] [place] [address] Creatinine [Mass/Vol] 0.58 mg/dL Normal 0.40-1.00 [facility] Comment on above: Result Comment: METH OD TRACEABLE TO IDMS STANDARD Performed By: #### B JOSE FERGUSON #### [facility] ([id number]) [address] [place] [address] eGFR (CKD-EPI) NON-RACE DEPENDENT >90 Normal >59 [facility] Comment on above: Result Comment: Reported eGFR is based on the CKD-EPI 2020 equation that does not use a race coefficient. Performed By: #### B MP, CBCA #### [facility] ([id number]) [address] [place] [address] Glucose [Mass/Vol] 109 mg/dL High 65-99 [facility] Comment on above: Performed By: #### B MP, CBCA #### [facility] ([id number]) [address] [place] [address] Potassium [Moles/Vol] 3.3 mmol/L Low 3.5-5.0 [facility] Comment on above: Performed By: #### B MP, CBCA #### [facility] ([id number]) [address] [place] [address] Sodium [Moles/Vol] 135 mmol/L Normal 134-146 [facility] Comment on above: Performed By: #### B PHYLLIS, CBCA #### [facility] ([id number]) [address] [place] [address] Urea nitrogen [Mass/Vol] 16 mg/dL Normal 5-23 [facility] Comment on above: Performed By: #### B MP, CBCA #### [facility] ([id number]) [address] [place] [address] CBC AND AUTO DIFFon -24-20 24 ABSOLUTE BASOPHIL 0.1 X10E9/L Normal 0.0-0.2 [facility] Comment on above: Performed By: #### B MP, CBCA #### [facility] ([id number]) [address] [place] [address] ABSOLUTE NEUTROPHIL 4.6 X10E9/L Normal 1.5-6.[address] [facility] Comment on above: Performed By: #### B MP, CBCA #### [facility] ([id number]) [address] [place] [address] Basophils/100 WBC (Bld) 0.7 % Normal [facility] Comment on above: Performed By: #### B MP, CBCA #### [facility] ([id number]) [address] [place] [address] Eosinophils (Bld) [#/Vol] 0.3 10*3/uL Normal 0.0-0.4 [facility] Comment on above: Performed By: #### B MP, CBCA #### [facility] ([id number]) [address] [place] [address] Eosinophils/100 WBC (Bld) 4.4 % Normal [facility] Comment on above: Performed By: #### B MP, CBCA #### [facility] ([id number]) [address] [place] [address] Erythrocyte distribution width (RBC) [Ratio] 13.3 % Normal 11.5-15.0 [facility] Comment on above: Performed By: #### B MP, CBCA #### [facility] ([id number]) [address] [place] [address] Hematocrit (Bld) [Volume fraction] 40.5 % Normal 35-47 [facility] Comment on above: Performed By: #### B MP, CBCA #### [facility] ([id number]) [address] [place] [address] Hemoglobin (Bld) [Mass/Vol] 13.8 g/dL Normal 11.7-15.5 [facility] Comment on above: Performed By: #### B MP, CBCA #### [facility] ([id number]) [address] [place] [address] Lymphocytes (Bld) [#/Vol] 2.0 10*3/uL Normal 1.0-3.5 [facility] Comment on above: Performed By: #### B MP, CBCA #### [facility] ([id number]) [address] [place] [address] Lymphocytes/100 WBC (Bld) 26.3 % Normal [facility] Comment on above: Performed By: #### B MP, CBCA #### [facility] ([id number]) [address] [place] [address] MCH (RBC) [Entitic mass] 27.9 pg Normal 27-34 [facility] Comment on above: Performed By: #### B MP, CBCA #### [facility] ([id number]) [address] [place] [address] MCHC (RBC) [Mass/Vol] 34.0 g/dL Normal 32-36 [facility] Comment on above: Performed By: #### B MP, CBCA #### [facility] ([id number]) [address] [place] [address] MCV (RBC) [Entitic vol] 82 fL Normal 80-100 [facility] Comment on above: Performed By: #### B MP, CBCA #### [facility] ([id number]) [address] [place] [address] Monocytes (Bld) [#/Vol] 0.5 10*3/uL Normal 0-0.9 [facility] Comment on above: Performed By: #### B MP, CBCA #### [facility] ([id number]) [address] [place] [address] Monocytes/100 WBC (Bld) 6.9 % Normal [facility] Comment on above: Performed By: #### B MP, CBCA #### [facility] ([id number]) [address] [place] [address] Neutrophils/100 WBC (Bld) 61.7 % Normal [facility] Comment on above: Performed By: #### B MP, CBCA #### [facility] ([id number]) [address] [place] [address] Platelet mean volume (Bld) [Entitic vol] 8.4 fL Normal 7-12 [facility] Comment on above: Performed By: #### B MP, CBCA #### [facility] ([id number]) [address] [place] [address] Platelets (Bld) [#/Vol] 247 10*3/uL Normal 150-450 [facility] Comment on above: Performed By: #### B MP, CBCA #### [facility] ([id number]) [address] [place] [address] RBC COUNT 4.93 X10E12/L Normal 3.80-5.20 [facility] Comment on above: Performed By: #### B PHYLLIS, CBCA #### [facility] ([id number]) [address] [place] [address] WBC (Bld) [#/Vol] 7.5 10*3/uL Normal 4.0-11.0 [facility] Comment on above: Performed By: #### B PHYLLIS, CBCA #### [facility] ([id number]) [address] [place] [address]RAIN WO CONTon CT BRAIN WO [...] Leon MD on 05/16/2023 10:57 AM Normal [facility] HCG ( test) Ql (U)o n 05-16-2023 Beta HCG ( test) Ql (U) Negative Normal NEG [facility] Comment on above: Performed By: #### 2 106-3 #### [facility] ([id number]) [address] [place] [address] URN MACROSCOPIC NURon 2023 BILIRUBIN TADEO Negative Normal [facility] Comment on above: Performed By: #### N UM #### [facility] ([id number]) [address] [place] [address] BLOOD/HGB TADEO Negative Normal [facility] Comment on above: Performed By: #### N UM #### [facility] ([id number]) [address] [place] [address] GLUCOSE TADEO Negative Normal [facility] Comment on above: Performed By: #### N UM #### [facility] ([id number]) [address] [place] [address] KETONES TADEO Negative Normal [facility] Comment on above: Performed By: #### N UM #### [facility] ([id number]) [address] [place] [address] LEUKOCYTE ESTERASE TADEO Negative Normal [facility] Comment on above: Performed By: #### N UM #### [facility] ([id number]) [address] [place] [address] NITRITE TADEO Negative Normal [facility] Comment on above: Performed By: #### N UM #### [facility] ([id number]) [address] [place] [address] PH TADEO 6.5 Normal 5.0-8.5 [facility] Comment on above: Performed By: #### N UM #### [facility] ([id number]) [address] [place] [address] PROTEIN TADEO Negative Normal NEG [facility] Comment on above: Performed By: #### N UM #### [facility] ([id number]) [address] [place] [address] SPECIFIC GRAVITY TADEO 1.025 Normal 1.003-1.035 [facility] Comment on above: Performed By: #### N UM #### [facility] ([id number]) [address] [place] [address]65 UROBILINOGEN TADEO 0.2 eu/dL Normal <1.1 [facility] Comment on above: Performed By: #### N UM #### [facility] ([id number]) [address] [place] [address] COVID + FLU Quick Testingon 02-05-2023 SARS-CoV-2 (COVID-19) RNA SARANYA+probe Ql (Unsp spec) Negative [facility] [employer] Other COVID + FLU Quick Testing Negative [facility] [employer] Other Aerobic Cultureon 12-22-2022 Aerobic Culture Comment tube 2 No Growth 2 Days Comment tube 2 No Anaerobes Isolated 3 Days Comment tube 2 Gram Stain Result No White Blood Cells Seen No Bacteria Seen PERFORMED BY: [place] [address] PATHOLOGIST [employer]ET[employer] ALLEN COATES M.D. Normal [facility] Comment on above: Performed By: #### C BC, PT, PTT #### [place] [id number] [place] CSF PCR Panelon 12-22-2022 CSF PCR [...] Varicella zoster virus Not detected PERFORMED BY: [place] [address] PATHOLOGIST [employer]ET[employer] ALLEN COATES M.D. [facility] Comment on above: Performed By: #### C SF PCR PANEL #### [address] Cell Count Differential,CSFo n 12-22-2022 Appearance, CSF Clear Normal Clear [facility] Comment on above: Order Comment: Comme nt tube 1 Performed By: #### C SFCCDIFF #2, CSF TP #2, CSF GLU #2, CSF GLU, CSF TP, GS, AERC, CSFCCDIFF #### [address] Order Comment: Comme nt tube 4 Color, CSF Colorless Normal Colorless [facility] Comment on above: Order Comment: Comme nt tube 1 Performed By: #### C SFCCDIFF #2, CSF TP #2, CSF GLU #2, CSF GLU, CSF TP, GS, AERC, CSFCCDIFF #### [address] Order Comment: Comme nt tube 4 CSF Supernatant Color Colorless Normal Colorless [facility] Comment on above: Order Comment: Comme nt tube 1 Performed By: #### C SFCCDIFF #2, CSF TP #2, CSF GLU #2, CSF GLU, CSF TP, GS, AERC, CSFCCDIFF #### [address] Order Comment: Comme nt tube 4 CSF Volume, Total 29.4 mL [facility] Comment on above: Order Comment: Comme nt tube 1 Performed By: #### C SFCCDIFF #2, CSF TP #2, CSF GLU #2, CSF GLU, CSF TP, GS, AERC, CSFCCDIFF #### [facility] [address] Order Comment: Comme nt tube 4 Lymphocytes, CSF 4 Normal [facility] Comment on above: Order Comment: Comme nt tube 1 Result Comment: The reference interval and other method performance specifications have not been established for this body fluid. The test result must be integrated into the clinical context for interpretation. Performed By: #### C SFCCDIFF #2, CSF TP #2, CSF GLU #2, CSF GLU, CSF TP, GS, AERC, CSFCCDIFF #### [facility] [address] [place] [address] RBC, CSF 2 /uL Normal [facility] Comment on above: Order Comment: Comme nt tube 1 Result Comment: The reference interval and other method performance specifications have not been established for this body fluid. The test result must be integrated into the clinical context for interpretation. Performed By: #### C SFCCDIFF #2, CSF TP #2, CSF GLU #2, CSF GLU, CSF TP, GS, AERC, CSFCCDIFF #### [facility] [address] [place] [address] TNC, CSF 1 /uL Normal 0-5 [facility] Comment on above: Order Comment: Comme nt tube 1 Performed By: #### C SFCCDIFF #2, CSF TP #2, CSF GLU #2, CSF GLU, CSF TP, GS, AERC, CSFCCDIFF #### [facility] [address] [place] [address] Order Comment: Comme nt tube 4 Tube Number Tested, CSF Tube Number: 1 Normal [facility] Comment on above: Order Comment: Comme nt tube 1 Result Comment: PERF ORMED BY: [place] [address] PATHOLOGIST [employer]ET[employer] ALLEN COATES M.D. Performed By: #### C SFCCDIFF #2, CSF TP #2, CSF GLU #2, CSF GLU, CSF TP, GS, AERC, CSFCCDIFF #### [facility] [address] Cell Count Differential,CSF #2on 12-22-2022 Lymphocytes, CSF 7 Normal [facility] Comment on above: Order Comment: Comme nt tube 4 Result Comment: The reference interval and other method performance specifications have not been established for this body fluid. The test result must be integrated into the clinical context for interpretation. Performed By: #### C SFCCDIFF #2, CSF TP #2, CSF GLU #2, CSF GLU, CSF TP, GS, AERC, CSFCCDIFF #### [facility] [address] [place] [address] RBC, CSF 1 /uL Normal [facility] Comment on above: Order Comment: Comme nt tube 4 Result Comment: The reference interval and other method performance specifications have not been established for this body fluid. The test result must be integrated into the clinical context for interpretation. Performed By: #### C SFCCDIFF #2, CSF TP #2, CSF GLU #2, CSF GLU, CSF TP, GS, AERC, CSFCCDIFF #### [address] Tube Number Tested, CSF Tube Number: 4 Normal [facility] Comment on above: Order Comment: Comme nt tube 4 Result Comment: PERF ORMED BY: [place] [address] PATHOLOGIST [employer] ALLEN COATES M.D. Performed By: #### C SFCCDIFF #2, CSF TP #2, CSF GLU #2, CSF GLU, CSF TP, GS, AERC, CSFCCDIFF #### [address] Cerebrospinal fluid post-adams trifugation appearance determinationOrdered By: Razia Muller on 12-22-2022 Appearance (Spun CSF) Colorless Colorless [facility] Cerebrospinal fluid sample t ube volume measurementOrdered By: Razia Muller on 12-22-2022 Specimen volume (CSF) 29.4 mL [facility] Color CSFOrdered By: Razia longo on 12-22-2022 Color (CSF) Colorless Colorless [facility] Glucose, CSF #2on 12-22-2022 Glucose, CSF #2 71 mg/dL High 40-70 [facility] Comment on above: Order Comment: Comme nt tube 4 Performed By: #### C BC, PT, PTT #### [facility] [address] [place] [address] [place] Glucose, Spinal Fluidon Glucose, Spinal Fluid 73 mg/dL High 40-70 [facility] Comment on above: Order Comment: Comme nt tube 1 Performed By: #### C SFCCDIFF #2, CSF TP #2, CSF GLU #2, CSF GLU, CSF TP, GS, AERC, CSFCCDIFF #### [facility] [address] [place] [address] Gram Stainon 12-22-2022 Microscopic observation Gram stain Nom (Unsp spec) Comment tube 2 Gram Stain Result No White Blood Cells Seen No Bacteria Seen PERFORMED BY: [place] [address] PATHOLOGIST [employer]RIET[employer] ALLEN COATES M.D. [facility] Comment on above: Performed By: #### C SFCCDIFF #2, CSF TP #2, CSF GLU #2, CSF GLU, CSF TP, GS, AERC, CSFCCDIFF #### [facility] [address] [place] [address] IR guided lumbar puncture LP on 12-22-2022 IR guided lumbar puncture LP [facility] [place] [address] [place] [address] Interventional Radiology Rpt Signed Patient: Yani Stevens MR#: [id number] : 1990 Acct:[id number] Age/Sex: 32 / F ADM Date: 12/22/22 Loc: XD Room: Type: [facility] Attending Dr: Razia EVANGELISTA Copies [...] Vernon Lin M.D.12/22/2022 1:07 PM Dictation Location: [place] [address] Transcribed By: PATT 12/22/22 7037 Dictated By: Vernon Lin II, MD 12/22/22 1253 Signed By: 12/22/[address] [facility] 12-22-2022 L ---- Specimen: [id number] Received: 12/22/22 Status: TERRANCE [place]ado Num: [id number] Spec Type: Cytology Subm Dr: TONJA Jimenez Tissues: A CSF (CSF) Procedures: Cyto Prepstain, DIFF QWIK, PAPSTN Age/ Patient Sex Location Account Attending Physician Yani Stevens 32/F XD [id number] TONJA Jimenez SPEC NUM: [id number] RECD: 12/22/22 STATUS: TERRANCE PAN NUM: [id number] TOMASA: 12/22/[address] [facility] [address]: TONJA Jimenez ENTERED: 12/22/[address] [facility] [address]: Vernon Lin II, MD SPEC TYPE: Cytology DEPT: [facility] ENTERED BY: [id number] RECV BY: [id number] ORDERED: Cyto Prepstain, DIFF QWIK, PAPSTN ORDERED: [...] [id number] Received: 12/22/22 Status: TERRANCE Collado Num: [id number] Spec Type: Cytology Subm Dr: Razia Muller, SUSTAINABILITY DIRECTOR-CHERRY DIPPER-C Tissues: A CSF (CSF) Procedures: Cyto Prepstain, DIFF QWIK, PAPQUITA Patient: Yani Stevens [id number] (Continued) Signed (signature on file) Dimas De Anda MD 12/26/22 0905 Normal [facility] Manual cerebrospinal fluid e rythrocytes count (number/volume)Ordered By: Razia Muller on 12-22-2022 RBC Manual cnt (CSF) [#/Vol] 1 /uL [facility] Comment on above: The reference interv al and other method performance specifications have not been established for this body fluid. The test result must be integrated into the clinical context for interpretation. No Panel InformationOrdered By: Razia Muller on 12-22-2022 CSF Appearance Clear Clear [facility] CSF Eosinophils N/A [facility] CSF Lymphocytes 7 [facility] Comment on above: The reference interv al and other method performance specifications have not been established for this body fluid. The test result must be integrated into the clinical context for interpretation. CSF Monocytes N/A [facility] CSF Neutrophils N/A [facility] CSF Tube Number Tube number: 4 [facility] Nucleated cells [#/volume] i n Cerebral spinal fluid by Manual countOrdered By: Razia Muller on 12-22-2022 Nucleated cells Manual cnt (CSF) [#/Vol] 0.001 10*3/uL 0-5 [facility] Total Protein, CSF #2on 09-0 Total Protein, CSF #2 31 mg/dL Normal 15-45 [facility] Comment on above: Order Comment: Comme nt tube 4 Result Comment: PERF ORMED BY: [place] [address] PATHOLOGIST [employer]RIET[employer] ALLEN COATES M.D. Performed By: #### C BC, PT, PTT #### [place] [address] [place] Total Protein, Spinal Fluido n 12-22-2022 Total Protein, Spinal Fluid 34 mg/dL Normal 15-45 [facility] Comment on above: Order Comment: Comme nt tube 1 Result Comment: PERF ORMED BY: [place] [address] PATHOLOGIST [employer]RIET[employer] ALLEN COATES M.D. Performed By: #### C BC, PT, PTT #### [facility] [address] [place] [address] Activated partial thrombopla stin time (aPTT) in platelet poor plasma by coagulation aOrdered By: Razia Muller on 12-20-2022 aPTT Coag (PPP) [Time] 32.8 s 25.1-36.5 [facility] Basophils Auto (Bld) [#/Vol] Ordered By: Razia Muller on 12-20-2022 Basophils (Bld) [#/Vol] 0.0 10*3/uL 0.0-0.2 [facility] Basophils/100 WBC Auto (Bld) Ordered By: Razia Muller on 12-20-2022 Basophils/100 WBC (Bld) 0.5 % . [facility] Complete Blood Count Auto Di ffon 12-20-2022 Basophils (Bld) [#/Vol] 0.0 10*3/uL Normal 0.0-0.2 [facility] Comment on above: Result Comment: PERF ORMED BY: [place] [address] PATHOLOGIST [employer] PROPRIETOR ALLEN CAOTES M.D. Performed By: #### C BC, PT, PTT #### [facility] [address] [place] [address] [place] Basophils/100 WBC (Bld) 0.5 % Normal . [facility] Comment on above: Performed By: #### C BC, PT, PTT #### [facility] [address] [place] [address] [place] Eosinophils (Bld) [#/Vol] 0.2 10*3/uL Normal 0.0-0.45 [facility] Comment on above: Performed By: #### C BC, PT, PTT #### [facility] [address] [place] [address] [place] Eosinophils/100 WBC (Bld) 3.2 % Normal . [facility] Comment on above: Performed By: #### C BC, PT, PTT #### [facility] [address] Erythrocyte distribution width (RBC) [Ratio] 13.9 % Normal 11.9-15.3 [facility] Comment on above: Performed By: #### C BC, PT, PTT #### [facility] [address] Hematocrit (Bld) [Volume fraction] 40.9 % Normal 34.0-46.4 [facility] Comment on above: Performed By: #### C BC, PT, PTT #### [facility] [address] Hemoglobin (Bld) [Mass/Vol] 13.6 g/dL Normal 11.8-15.4 [facility] Comment on above: Performed By: #### C BC, PT, PTT #### [address] Lymphocytes (Bld) [#/Vol] 2.1 10*3/uL Normal 1.00-4.8 [facility] Comment on above: Performed By: #### C BC, PT, PTT #### [address] Lymphocytes/100 WBC (Bld) 29.1 % Normal . [facility] Comment on above: Performed By: #### C BC, PT, PTT #### [address] MCH (RBC) [Entitic mass] 27.6 pg Normal 24.7-34.3 [facility] Comment on above: Performed By: #### C BC, PT, PTT #### [address] MCV (RBC) [Entitic vol] 83.0 fL Normal 80-100 [facility] Comment on above: Performed By: #### C BC, PT, PTT #### [address] Mean Corpuscular HGB Conc 33.2 g/dL Normal 32.0-35.0 [facility] Comment on above: Performed By: #### C BC, PT, PTT #### [facility] [address] Monocytes (Bld) [#/Vol] 0.5 10*3/uL Normal 0.0-0.8 [facility] Comment on above: Performed By: #### C BC, PT, PTT #### [facility] [address] Monocytes/100 WBC (Bld) 6.3 % Normal . [facility] Comment on above: Performed By: #### C BC, PT, PTT #### [facility] [address] Neutrophils (Bld) [#/Vol] 4.4 10*3/uL Normal 1.8-7.7 [facility] Comment on above: Performed By: #### C BC, PT, PTT #### [address] Neutrophils/100 WBC (Bld) 60.9 % Normal . [facility] Comment on above: Performed By: #### C BC, PT, PTT #### [facility] [address] [place] [address] NRBC% 0.1 /100{WBC} Normal 0-0.5 [facility] Comment on above: Performed By: #### C BC, PT, PTT #### [facility] [address] [place] [address] [place] Platelet mean volume (Bld) [Entitic vol] 8.1 fL Normal 6.3-10.7 [facility] Comment on above: Performed By: #### C BC, PT, PTT #### [facility] [address] [place] [address] [place] Platelets (Bld) [#/Vol] 222 10*3/uL Normal 150-450 [facility] Comment on above: Performed By: #### C BC, PT, PTT #### [facility] [address] [place] [address] [place] RBC (Bld) [#/Vol] 4.93 10*6/uL Normal 3.60-5.00 [facility] Comment on above: Performed By: #### C BC, PT, PTT #### [facility] [address] WBC (Bld) [#/Vol] 7.3 10*3/uL Normal 3.8-11.6 [facility] Comment on above: Performed By: #### C BC, PT, PTT #### [facility] [address] Eosinophils Auto (Bld) [#/Vo l]Ordered By: Razia Muller on 12-20-2022 Eosinophils (Bld) [#/Vol] 0.2 10*3/uL 0.0-0.45 [facility] Eosinophils/100 WBC Auto (Bl d)Ordered By: Razia Muller on 12-20-2022 Eosinophils/100 WBC (Bld) 3.2 % . [facility] Erythrocyte distribution wid th Auto (RBC) [Ratio]Ordered By: Razia Muller on 12-20-2022 Erythrocyte distribution width (RBC) [Ratio] 13.9 % 11.9-15.3 [facility] Hematocrit Auto (Bld) [Volum e fraction]Ordered By: Razia Muller on 12-20-2022 Hematocrit (Bld) [Volume fraction] 40.9 % 34.0-46.4 [facility] Hemoglobin [Mass/volume] in BloodOrdered By: Razia Muller on 12-20-2022 Hemoglobin (Bld) [Mass/Vol] 13.6 g/dL 11.8-15.4 [facility] INR in Platelet poor plasma by Coagulation assayOrdered By: Razia Muller on 12-20-2022 INR Coag (PPP) [Relative time] 1.0 {INR} [facility] Comment on above: INR Therapeutic [...] PT Coag (PPP) [Time] 11.1 s 9.0-12.9 [facility] Leukocytes [#/volume] correc burke for nucleated erythrocytes in Blood by Automated counOrdered By: Razia Muller on 12-20-2022 WBC corrected for nucl RBC Auto (Bld) [#/Vol] 7.3 10*3/uL 3.8-11.6 [facility] Lymphocytes Auto (Bld) [#/Vo l]Ordered By: Razia Muller on 12-20-2022 Lymphocytes (Bld) [#/Vol] 2.1 10*3/uL 1.00-4.8 [facility] Lymphocytes/100 WBC Auto (Bl d)Ordered By: Razia Muller on 12-20-2022 Lymphocytes/100 WBC (Bld) 29.1 % . [facility] MCH Auto (RBC) [Entitic mass ]Ordered By: Razia Muller on 12-20-2022 MCH (RBC) [Entitic mass] 27.6 pg 24.7-34.3 [facility] MCHC Auto (RBC) [Mass/Vol]Or dered By: Razia Muller on 12-20-2022 MCHC (RBC) [Mass/Vol] 33.2 g/dL 32.0-35.0 [facility] MCV Auto (RBC) [Entitic vol] Ordered By: Razia Muller on 12-20-2022 MCV (RBC) [Entitic vol] 83.0 fL 80-100 [facility] Monocytes Auto (Bld) [#/Vol] Ordered By: Razia Muller on 12-20-2022 Monocytes (Bld) [#/Vol] 0.5 10*3/uL 0.0-0.8 [facility] Monocytes/100 WBC Auto (Bld) Ordered By: Razia Muller on 12-20-2022 Monocytes/100 WBC (Bld) 6.3 % . [facility] Neutrophils Auto (Bld) [#/Vo l]Ordered By: Razia Muller on 12-20-2022 Neutrophils (Bld) [#/Vol] 4.4 10*3/uL 1.8-7.7 [facility] Neutrophils/100 WBC Auto (Bl d)Ordered By: Razia Muller on 12-20-2022 Neutrophils/100 WBC (Bld) 60.9 % . [facility] Nucleated erythrocytes [Pres ence] in Blood by Automated countOrdered By: Razia Muller on 12-20-2022 Nucleated RBC Auto Ql (Bld) 0.1 /100{WBC} 0-0.5 [facility] Partial Thromboplastin Timeo n 12-20-2022 aPTT Coag (Bld) [Time] 32.8 s Normal 25.1-36.5 [facility] Comment on above: Result Comment: PERF ORMED BY: [place] [address] PATHOLOGIST [employer]ET[employer] ALLEN COATES M.D. Performed By: #### C BC, PT, PTT #### [facility] [address] Platelet mean volume Auto (B ld) [Entitic vol]Ordered By: Razia Muller on 12-20-2022 Platelet mean volume (Bld) [Entitic vol] 8.1 fL 6.3-10.7 [facility] Platelets Auto (Bld) [#/Vol] Ordered By: Razia Muller on 12-20-2022 Platelets (Bld) [#/Vol] 222 10*3/uL 150-450 [facility] Prothrombin Time INRon 12-20 INR Coag (PPP) [Relative time] 1.0 {INR} Normal [facility] Comment on above: Result Comment: [...] By: #### C BC, PT, PTT #### [facility] [address] PT Coag (PPP) [Time] 11.1 s Normal 9.0-12.9 [facility] Comment on above: Performed By: #### C BC, PT, PTT #### [facility] [address] RBC Auto (Bld) [#/Vol]Ordere d By: Razia Renzo on 12-20-2022 RBC (Bld) [#/Vol] 4.93 10*6/uL 3.60-5.00 [facility] WBC Auto (Bld) [#/Vol]Ordere d By: Razia Renzo on 12-20-2022 WBC (Bld) [#/Vol] 7.3 10*3/uL 3.8-11.6 [facility] POC Glucose Fingerstickon Glucose [Mass/Vol] 85 mg/dL 65 - 105 mg/dL Melon #usemelon C.trachomatis N.gonorrhoeae DNA, Urineon 07-21-2022 Chlamydia sp DNA SARANYA+probe Ql (U) Negative NEGATIVE [employer] Comment on above: CHLAMYDIA TRACHOMATI S DNA [...] gonorrhoeae DNA SARANYA+probe Ql (U) Negative NEGATIVE [employer] Comment on above: NEISSERIA GONORRHOEA E DNA [...] alternative nucleic acid target. Specimen Description .URINE Melon #usemelon CBC auto differentialon 06-23 Absolute Eos # [facility] Absolute Immature Granulocyte 0.12 [facility] Absolute Lymph # 1.21 [facility] Absolute Arthur # 0.69 [facility] Basophils (Bld) [#/Vol] 0.03 10*3/uL [facility] Basophils/100 WBC (Bld) 0 % 0 - 2 % [facility] Eosinophils/100 WBC (Bld) 0 % Low 1 - 4 % [facility] Hematocrit (Bld) [Volume fraction] 33.5 % Low 36.3 - 47.1 % [facility] Hemoglobin (Bld) [Mass/Vol] 10.8 g/dL Low 11.9 - 15.1 g/dL [facility] Immature granulocytes/100 WBC (Bld) 1 % High 0 [facility] Interpretation and review of laboratory results Abnormal [facility] Lymphocytes/100 WBC (Bld) 8 % Low 24 - 43 % [facility] MCH (RBC) [Entitic mass] 28.4 pg 25.2 - 33.5 pg [facility] MCHC (RBC) [Mass/Vol] 32.2 g/dL 28.4 - 34.8 g/dL [facility] MCV (RBC) [Entitic vol] 88.2 fL 82.6 - 102.9 fL [facility] Monocytes/100 WBC (Bld) 4 % 3 - 12 % [facility] NRBC Automated 0.0 0.0 per 100 WBC [facility] Platelet distribution width (Bld) [Ratio] 13.2 % 11.8 - 14.4 % [facility] Platelet mean volume (Bld) [Entitic vol] 10.5 fL 8.1 - 13.5 fL [facility] Platelets (Bld) [#/Vol] 197 10*3/uL [facility] RBC (Bld) [#/Vol] 3.80 10*6/uL Low 3.95 - 5.1 1 m/uL [facility] Segmented neutrophils/100 WBC (Bld) 87 % High 36 - 65 % [facility] Segs Absolute 13.58 High [facility] WBC (Bld) [#/Vol] 15.6 10*3/uL High [facility] Culture, Urineon 07-21-2022 Microorganism identified Cx Nom (Unsp spec) NO SIGNIFICANT GROWTH [facility] Specimen Description .CLEAN CATCH URINE [facility] POC Glucose Fingerstickon Glucose [Mass/Vol] 108 mg/dL High 65 - 105 mg/dL [facility] Interpretation and review of laboratory results Abnormal [facility] Glucose [Mass/Vol] 95 mg/dL 65 - 105 mg/dL [facility] Glucose [Mass/Vol] 123 mg/dL High 65 - 105 mg/dL [facility] Interpretation and review of laboratory results Abnormal [facility] CBCon 07-20-2022 Hematocrit (Bld) [Volume fraction] 32.8 % Low 36.3 - 47.1 % [facility] Hemoglobin (Bld) [Mass/Vol] 11.0 g/dL Low 11.9 - 15.1 g/dL [facility] Interpretation and review of laboratory results Abnormal [facility] MCH (RBC) [Entitic mass] 28.6 pg 25.2 - 33.5 pg [facility] MCHC (RBC) [Mass/Vol] 33.5 g/dL 28.4 - 34.8 g/dL [facility] MCV (RBC) [Entitic vol] 85.4 fL 82.6 - 102.9 fL [facility] NRBC Automated 0.0 0.0 per 100 WBC [facility] Platelet distribution width (Bld) [Ratio] 13.2 % 11.8 - 14.4 % [facility] Platelet mean volume (Bld) [Entitic vol] 10.8 fL 8.1 - 13.5 fL [facility] Platelets (Bld) [#/Vol] 200 10*3/uL [facility] RBC (Bld) [#/Vol] 3.84 10*6/uL Low 3.95 - 5.1 1 m/uL [facility] WBC (Bld) [#/Vol] 10.2 10*3/uL [facility] Comprehensive Metabolic Pane jaylan 07-20-2022 Albumin [Mass/Vol] 3.3 g/dL Low 3.5 - 5.2 g/dL [facility] Albumin/Globulin [Mass ratio] 1.0 {ratio} 1.0 - 2.5 [facility] ALP [Catalytic activity/Vol] 142 U/L High 35 - 104 U/L [facility] ALT [Catalytic activity/Vol] 15 U/L 5 - 33 U/L [facility] Anion gap [Moles/Vol] 12 mmol/L 9 - 17 mmol/L [facility] AST [Catalytic activity/Vol] 15 U/L NINF - 32 U/L [facility] Bilirubin [Mass/Vol] mg/dL Low 0.3 - 1 .2 mg/dL [facility] Calcium [Mass/Vol] 9.0 mg/dL 8.6 - 10. 4 mg/dL [facility] Chloride [Moles/Vol] 104 mmol/L 98 - 10 7 mmol/L [facility] CO2 [Moles/Vol] 21 mmol/L 20 - 31 mmol/L [facility] Creatinine [Mass/Vol] 0.41 mg/dL Low 0.50 - 0.90 mg/dL [facility] GFR/1.73 sq M.predicted MDRD (S/P/Bld) [Vol rate/Area] - PINF [facility] Comment on above: These results are not [...] mg/dL High 70 - 99 mg/dL [facility] Interpretation and review of laboratory results Abnormal [facility] Potassium [Moles/Vol] 3.8 mmol/L 3.7 - 5.3 mmol/L [facility] Protein [Mass/Vol] 6.5 g/dL 6.4 - 8.3 g/dL [facility] Sodium [Moles/Vol] 137 mmol/L 135 - 144 mmol/L [facility] Urea nitrogen [Mass/Vol] 8 mg/dL 6 - 20 mg/dL [facility] DRUG SCREEN MULTI URINEon Amphetamine Screen, Ur Negative NEGATIVE [facility] Comment on above: (Positive cutoff 1000 ng/mL) Barbiturate Screen, Ur Negative NEGATIVE [facility] Comment on above: (Positive cutoff 200 ng/mL) Benzodiazepine Screen, Urine Negative NEGATIVE [facility] Comment on above: (Positive cutoff 200 ng/mL) Cannabinoid Scrn, Ur Negative NEGATIVE [facility] Comment on above: (Positive cutoff 50 ng/mL) Cocaine Metabolite, Urine Negative NEGATIVE [facility] Comment on above: (Positive cutoff 300 ng/mL) Fentanyl, Ur Negative NEGATIVE [facility] Comment on above: (Positive cutoff 5 ng/ml) Methadone Screen, Urine Negative NEGATIVE [facility] Comment on above: (Positive cutoff 300 ng/mL) Opiates, Urine Negative NEGATIVE [facility] Comment on above: (Positive cutoff 300 ng/mL) Oxycodone Screen, Ur Negative NEGATIVE [facility] Comment on above: (Positive cutoff 100 ng/mL) Phencyclidine, Urine Negative NEGATIVE [facility] Comment on above: (Positive cutoff 25 ng/mL) Test Information Assay provides medic al screening only. The absence of expected drug(s) and/or metabolite(s) may indicate diluted or adulterated urine, limitations of testing or timing of collection. [facility] Comment on above: Testing for legal pu rposes should be confirmed by another method. To request confirmation of test result, please call the lab within 7 days of sample submission. [facility] GROUP B STREP CULTUREon 06-23 S. agalactiae Ag Ql (Unsp spec) Culture Observations: NEGATIVE FOR GROUP B STREPTOCOCCUS. Normal [facility] Comment on above: Performed By: #### [id number] #### [facility] [address] [place], [place] [address] Dr. Valeria Farris POC Glucose Fingerstickon Glucose [Mass/Vol] 116 mg/dL High 65 - 105 mg/dL [facility] Interpretation and review of laboratory results Abnormal [facility] Protein / creatinine ratio, urineon 07-20-2022 Creatinine, Ur 95.9 mg/dL 28.0 - 217.0 mg/dL [facility] Protein (U) [Mass/Vol] 17 mg/dL [facility] Comment on above: No normal range esta blished. Urine Total Protein Creatinine Ratio 0.18 0.00 - 0.20 [facility] T. pallidum Abon 07-20-2022 T. pallidum Ab IA Ql (S) Non-Reactive NONREACTIVE [facility] Comment on above: T. pallidum antibodies are not detected. There is no serological evidence of infection with T. pallidum (early primary syphilis cannot be excluded). Retest in 2-4 weeks if syphilis is clinically suspect. [facility] TYPE AND SCREENon 07-20-2022 ABO/Rh Positive [facility] Arm Band Number BE [id number] [facility] Expiration Date 07/23/2022,2351 [facility] US CHINYERE DOP LEG LTon 07-20-19 [...] by: GERARD GONZALEZ Date: 2022-07-19 15:06 Normal [facility] COVID + FLU Quick Testingon 07-18-2022 SARS-CoV-2 (COVID-19) RNA SARANYA+probe Ql (Unsp spec) Negative [employer] Other COVID + FLU Quick Testing Negative [employer] Other Quick Strepon 07-18-2022 S. pyogenes Org specific cx Ql (Throat) Negative [employer] Other Quick Strep [employer] Other US PREG BIOPHY W NON STRESSo [...] by: GERARD GONZALEZ Date: 2022-07-17 15:56 Normal [facility] Brain Natriuretic Peptideon 07-15-2022 Natriuretic peptide B (Bld) [Mass/Vol] pg/mL [facility] - 300 pg/mL [facility] [employer] Comment on above: An age-independent cutoff point of 300 pg/ml has a 98% negative predictive value excluding acute heart failure. [facility] Comprehensive metabolic pane jaylan 07-15-2022 Albumin [Mass/Vol] 3.4 g/dL Low 3.5 - 5.2 g/dL [facility] Albumin/Globulin [Mass ratio] 1.0 {ratio} 1.0 - 2.5 [facility] ALP [Catalytic activity/Vol] 138 U/L High 35 - 104 U/L [facility] ALT [Catalytic activity/Vol] 16 U/L 5 - 33 U/L [facility] Anion gap [Moles/Vol] 12 mmol/L 9 - 17 mmol/L [facility] AST [Catalytic activity/Vol] 23 U/L NINF - 32 U/L [facility] Bilirubin [Mass/Vol] mg/dL Low 0.3 - 1 .2 mg/dL [facility] Calcium [Mass/Vol] 8.9 mg/dL 8.6 - 10. 4 mg/dL [facility] Chloride [Moles/Vol] 102 mmol/L 98 - 10 7 mmol/L [facility] CO2 [Moles/Vol] 19 mmol/L Low 20 - 31 mmol/L [facility] Creatinine [Mass/Vol] 0.38 mg/dL Low 0.50 - 0.90 mg/dL [facility] GFR/1.73 sq M.predicted MDRD (S/P/Bld) [Vol rate/Area] - PINF [facility] Comment on above: These results are not [...] mg/dL High 70 - 99 mg/dL [facility] Interpretation and review of laboratory results Abnormal [facility] Potassium [Moles/Vol] 3.5 mmol/L Low 3.7 - 5.3 mmol/L [facility] Protein [Mass/Vol] 6.7 g/dL 6.4 - 8.3 g/dL [facility] Sodium [Moles/Vol] 133 mmol/L Low 135 - 144 mmol/L [facility] Urea nitrogen [Mass/Vol] 9 mg/dL 6 - 20 mg/dL [facility] HIV Screenon 07-15-2022 HIV 1+2 Ab+HIV1 p24 Ag IA Ql Non-Reactive NONREACTIVE [facility] Comment on above: No laboratory eviden ce of HIV infection. If acute HIV infection is suspected, consider testing for HIV-1 RNA. [facility] Protein / Creatinine Ratio, Urineon 07-15-2022 Creatinine, Ur 33.5 mg/dL 28.0 - 217.0 mg/dL [facility] Protein (U) [Mass/Vol] 5 mg/dL [facility] Comment on above: No normal range esta blished. Urine Total Protein Creatinine Ratio 0.15 0.00 - 0.20 [facility] TYPE AND SCREENon 07-15-2022 ABO/Rh Positive [facility] Arm Band Number BE [id number] [facility] Expiration Date 07/18/2022,2359 [facility] Troponinon 07-15-2022 Troponin I.cardiac DL <= 0.01 ng/mL [Mass/Vol] ng/L 0 - 14 ng/L [facility] Comment on above: High Sensitivity Tro ponin values cannot be compared with other Troponin methodologies. [facility] XR CHEST (SINGLE VIEW FRONTA L)on 07-15-2022 No acute process. [facility] EXAMINATION: ONE XRAY VIEW OF THE CHEST 07/15/2022 4:26 pm COMPARISON: None. HISTORY: ORDERING SYSTEM PROVIDED HISTORY: shortness of breath TECHNOLOGIST PROVIDED HISTORY: Concerns for COVID shortness of breath FINDINGS: The lungs are without acute focal process. There is no effusion or pneumothorax. The cardiomediastinal silhouette is without acute process. The osseous structures are without acute process. [facility] Abner Dela Cruz [...] without acute process. IMPRESSION: No acute process. [facility] [employer] Work Phone: Radiology Study observation (narrative) [facility] Work Phone: XR CHEST (SINGLE VIEW FRONTA L)Ordered By: Abner Dela Cruz on 07-15-2022 [facility] Work Phone: US PREG BIOPHY W NON [...] GERARD GONZALEZ Date: 2022-07-10 15:41 Normal [facility] US PREG BIOPHY W NON [...] by: GERARD GONZALEZ Date: 2022-07-04 16:21 Normal [facility] UA (CLEAN/CATCH) WEB SITE SPECIALIST/MICRO I F IND.on 06-30-2022 Bilirubin Ql (U) Negative Normal NEGATIVE [facility] Comment on above: Performed By: #### [id number] #### [facility] [address] [place] [address] Dr. Valeria Farris Clarity (U) CLEAR Normal CLEAR [facility] Comment on above: Performed By: #### [id number] #### [facility] [address] [place] [address] Dr. Valeria Farris Color (U) LT. YELLOW Normal YELLOW [facility] Comment on above: Performed By: #### [id number] #### [facility] [address] [place] [address] Dr. Valeria Farris Glucose Ql (U) Negative Normal NEGATIVE [facility] Comment on above: Performed By: #### [id number] #### [facility] [address] [place] [address] Dr. Valeria Farris Hemoglobin Ql (U) LARGE Abnormal NEGATIVE [facility] Comment on above: Performed By: #### [id number] #### [facility] [address] [place] [address] Dr. Valeria Farris Ketones Ql (U) Negative Normal NEGATIVE [facility] Comment on above: Performed By: #### [id number] #### [facility] [address] [place] [address] Dr. Valeria Farris LEUKOCYTES Negative Normal NEGATIVE [facility] Comment on above: Performed By: #### [id number] #### [facility] [address] [place] [address] Dr. Valeria Farris Nitrite Ql (U) Negative Normal NEGATIVE [facility] Comment on above: Performed By: #### [id number] #### [facility] [address] [place] [address] Dr. Valeria Farris pH (U) 6.5 [pH] Normal 5-9 [facility] Comment on above: Performed By: #### [id number] #### [facility] [address] [place] [address] Dr. Valeria Farris SPEC GRAVITY <=1.005 Abnormal 1.005-<=1.02 5 [facility] Comment on above: Performed By: #### [id number] #### [facility] [address] [place] [address] Dr. Valeria Farris UA PROTEIN Negative Normal NEGATIVE/ TRACE [facility] Comment on above: Performed By: #### [id number] #### [facility] [address] [place] [address] Dr. Valeria Farris UR MICRO IND INDICATED Normal [facility] Comment on above: Performed By: #### [id number] #### [facility] [address] [place] [address] Dr. Valeria Farris Urobilinogen Qn (U) 0.2 {Manolo'U}/dL Normal 0.2 - 1. 0 [facility] Comment on above: Performed By: #### [id number] #### [facility] [address] [place] [address] Dr. Valeria Farris URINE MICROSCOPIC ONLYon BACTERIA NONE SEEN Normal NONE SEEN [facility] Comment on above: Performed By: #### [id number] #### [facility] [address] [place] [address] Dr. Valeria Farris Bacteria identified Cx Nom (U) NOT INDICATED Normal [facility] Comment on above: Performed By: #### [id number] #### [facility] [address] [place] [address] Dr. Valeria Farris CAST NONE SEEN Normal NONE SEEN [facility] Comment on above: Performed By: #### [id number] #### [facility] [address] [place] [address] Dr. Valeria Farris Crystals LM Nom (Urine sed) NONE SEEN Normal NONE SEEN [facility] Comment on above: Performed By: #### [id number] #### [facility] [address] [place] [address] Dr. Valeria Farris Epithelial cells LM Ql (Urine sed) FEW Abnormal NONE SEEN /RARE [facility] Comment on above: Performed By: #### [id number] #### [facility] [address] [place] [address] Dr. Valeria Farris MUCOUS NONE SEEN Normal NONE SEEN [facility] Comment on above: Performed By: #### [id number] #### [facility] [address] [place] [address] Dr. Valeria Farris RBC 5-10 Abnormal 0-2 [facility] Comment on above: Performed By: #### [id number] #### [facility] [address] [place] [address] Dr. Valeria Farris WBC 0-2 Abnormal NONE SEEN [facility] Comment on above: Performed By: #### [id number] #### [facility] [address] [place] [address] Dr. Valeria Farris No Panel Informationon 06-29 [facility] T4, Freeon 06-29-2022 Free T4 [Mass/Vol] 0.82 ng/dL Low 0.93 - 1. 70 ng/dL [facility] Interpretation and review of laboratory results Abnormal [facility] TSHon 06-29-2022 TSH Qn 2.16 m[IU]/L [facility] US PREG BIOPHY W NON STRESSo n [...] ALINE GALICIA Date: 2022-06-26 07:50 Normal [facility] US PREG BIOPHY W NON [...] GERARD GONZALEZ Date: 2022-06-19 15:28 Normal [facility] CREATININE CLEARon 3 BODY SURF AREA 2.35 Normal [facility] Comment on above: Performed By: #### DAPHNE SUN #### [facility] [address] [address] [address] Valeria MAST CLEARANCE 128.94 ml/min Critically high 75.00-115.00 [facility] Comment on above: Performed By: #### DAPHNE SUN #### [facility] [address] [address] [address] Valeria MAST, 24 HR UR 882.73 mg/24 hr Normal 800.00-1,8 00 .00 [facility] Comment on above: Performed By: #### DAPHNE SUN #### [facility] [address] [place] [address] Dr. Valeria Farris Creatinine [Mass/Vol] 0.35 mg/dL Critically low 0.55-1.02 [facility] Comment on above: Performed By: #### U LETI ICRO #### [facility] [address] [place] [address] Dr. Valeria Farris URINE CREAT 21.53 mg/dL Normal 20.00-300.00 [facility] Comment on above: Performed By: #### [facility]I [facility] #### [facility] [address] [place] [address] Dr. Valeria Farris PROTEIN 24HR URINEon 023 T PROT, 24 HR UR 241.9 mg/24 hr Critically high <=149.1 [facility] Comment on above: Performed By: #### P [id number] #### [facility] [address] [place] [address] Dr. Valeria Farris UR PROT 5.9 mg/dL Normal <=11.9 [facility] Comment on above: Performed By: #### P ROT24U #### [facility] [address] [place] [address] Dr. Valeria Farris UR TOT VOL 4100 ml/24 HR Normal [facility] Comment on above: Performed By: #### P ROT24U #### [facility] [address] [place] [address] Dr. Valeria Farris Performed By: #### [facility]I [facility] #### [facility] [address] [place] [address] Dr. Valeria Farris CBC AUTO DIFFon 06-17-2022 BASO # 0.0 103/ul Normal 0.0-0.1 [facility] Comment on above: Performed By: #### G LU1HR #### [facility] [address] [place] [address] Dr. Valeria Farris Basophils/100 WBC (Bld) 0.4 % Normal 0.2-2.0 [facility] Comment on above: Performed By: #### G LU1HR #### [facility] [address] [address] [address] Valeria Farris EO # 0.2 103/ul Normal 0.0-0.7 [facility] Comment on above: Performed By: #### G LU1HR #### [facility] [address] [address] [address] Valeria Farris Eosinophils/100 WBC (Bld) 2.0 % Normal 0.9-7.0 [facility] Comment on above: Performed By: #### G LU1HR #### [facility] [address] [place] [address] Dr. Valeria Farris Erythrocyte distribution width (RBC) [Ratio] 13.3 % Normal 11.0-15.0 [facility] Comment on above: Performed By: #### G LU1HR #### [facility] [address] [place] [address] Dr. Valeira Farris Hematocrit (Bld) [Volume fraction] 31.8 % Critically low 36.0-48.0 [facility] Comment on above: Performed By: #### G LU1HR #### [facility] [address] [place] [address] Dr. Valeria Farris Hemoglobin (Bld) [Mass/Vol] 10.8 g/dL Critically low 12.0-16.0 [facility] Comment on above: Performed By: #### G LU1HR #### [facility] [address] [place] [address] Dr. Valeria Farris IG # 0.09 10e3/ul Critically high 0.00-0.03 [facility] Comment on above: Performed By: #### G LU1HR #### [facility] [address] [place] [address] Dr. Valeria Farris IG % 0.8 % Critically high 0.0-0.5 [facility] Comment on above: Performed By: #### G LU1HR #### [facility] [address] [place] [address] Dr. Valeria Farris LYMPH # 2.2 103/ul Normal 1.2-3.8 [facility] Comment on above: Performed By: #### G LU1HR #### [facility] [address] [address] [address] Valeria Farris Lymphocytes/100 WBC (Bld) 20.0 % Critically low 20.5-60.0 [facility] Comment on above: Performed By: #### G LU1HR #### [facility] [address] [place] [address] Dr. Valeria Farris MANUAL DIFF REQ NO Normal [facility] Comment on above: Performed By: #### G LU1HR #### [facility] [address] [place] [address] Dr. Valeria Farris MCH (RBC) [Entitic mass] 28.4 pg Normal 26.7-34.0 [facility] Comment on above: Performed By: #### G LU1HR #### [facility] [address] [place] [address] Dr. Valeria Farris MCHC (RBC) [Mass/Vol] 34.0 g/dL Normal 29.9-35.2 [facility] Comment on above: Performed By: #### G LU1HR #### [facility] [address] [place] [address] Dr. Valeria Farris MCV (RBC) [Entitic vol] 83.7 fL Normal 81.0-99.0 [facility] Comment on above: Performed By: #### G LU1HR #### [facility] [address] [place] [address] Dr. Valeria Farris MONO # 0.9 103/ul Critically high 0.3-0.8 [facility] Comment on above: Performed By: #### G LU1HR #### [facility] [address] [place] [address] Dr. Valeria Farris Monocytes/100 WBC (Bld) 7.9 % Normal 1.7-12.0 [facility] Comment on above: Performed By: #### G LU1HR #### [facility] [address] [place] [address] Dr. Valeria Farris NEUT # 7.7 103/ul Critically high 1.4-6.5 [facility] Comment on above: Performed By: #### G LU1HR #### [facility] [address] [place] [address] Dr. Valeria Farris Neutrophils/100 WBC (Bld) 68.9 % Normal 43.0-75.0 [facility] Comment on above: Performed By: #### G LU1HR #### [facility] [address] [place] [address] Dr. Valeria Farris Platelet mean volume (Bld) [Entitic vol] 10.7 fL Normal 9.5-13.5 [facility] Comment on above: Performed By: #### G LU1HR #### [facility] [address] [place] [address] Dr. Valeria Farris PLT 195 103/ul Normal 150-450 [facility] Comment on above: Performed By: #### G LU1HR #### [facility] [address] [place] [address] Dr. Valeria Farris RBC 3.80 106/ul Critically low 4.20-5.40 [facility] Comment on above: Performed By: #### G LU1HR #### [facility] [address] [place] [address] Dr. Valeria Farris WBC 11.2 103/ul Critically high 4.0-11.0 [facility] Comment on above: Performed By: #### G LU1HR #### [facility] [address] [place] [address] Dr. Valeria Farris LDHon 06-17-2022 LDH 230 U/L Normal 81-234 [facility] Comment on above: Performed By: #### P ROT24U #### [facility] [address] [place] [address] Dr. Valeria Farris PROF 14(COMP METB)on 023 Albumin [Mass/Vol] 2.6 g/dL Critically low 3.4-5.0 [facility] Comment on above: Performed By: #### P ROT24U #### [facility] [address] [place] [address] Dr. Valeria Farris Albumin/Globulin [Mass ratio] 0.6 {ratio} Normal [facility] Comment on above: Performed By: #### P ROT24U #### [facility] [address] [place] [address] Dr. Valeria Farris ALP [Catalytic activity/Vol] 112 U/L Normal 46-116 [facility] Comment on above: Performed By: #### P ROT24U #### [facility] [address] [place] [address] Dr. Valeria Farris ALT [Catalytic activity/Vol] 18 U/L Normal 14-59 [facility] Comment on above: Performed By: #### P ROT24U #### [facility] [address] [place] [address] Dr. Valeria Farris Anion gap [Moles/Vol] 13.1 mmol/L Normal [facility] Comment on above: Performed By: #### P ROT24U #### [facility] [address] [place] [address] Dr. Valeria Farris AST [Catalytic activity/Vol] 22 U/L Normal 15-37 [facility] Comment on above: Performed By: #### P ROT24U #### [facility] [address] [place] [address] Dr. Valeria Farris Bilirubin [Mass/Vol] 0.2 mg/dL Normal 0.2-1.0 [facility] Comment on above: Performed By: #### P ROT24U #### [facility] [address] [place] [address] Dr. Valeria Farris Calcium [Mass/Vol] 9.1 mg/dL Normal 8.5-10.1 [facility] Comment on above: Performed By: #### P ROT24U #### [facility] [address] [place] [address] Dr. Valeria Farris Chloride [Moles/Vol] 103 mmol/L Normal 98-107 [facility] Comment on above: Performed By: #### P ROT24U #### [facility] [address] [place] [address] Dr. Valeria Farris CO2 [Moles/Vol] 25.8 mmol/L Normal 21.0-32.0 [facility] Comment on above: Performed By: #### P ROT24U #### [facility] [address] [place] [address] Dr. Valeria Farris Creatinine [Mass/Vol] 0.35 mg/dL Critically low 0.55-1.02 [facility] Comment on above: Performed By: #### P ROT24U #### [facility] [address] [address] [address] Valeria Farris EGFR-AF CZECH >60 Normal >=60 [facility] Comment on above: Performed By: #### P ROT24U #### [facility] [address] [place] [address] Dr. Valeria Farris EGFR-NON AF CZECH >60 Normal >=60 [facility] Comment on above: Performed By: #### P ROT24U #### [facility] [address] [place] [address] Dr. Valeria Farris Globulin (S) [Mass/Vol] 4.2 g/dL Normal [facility] Comment on above: Performed By: #### P ROT24U #### [facility] [address] [place] [address] Dr. Valeria Farris Glucose [Mass/Vol] 80 mg/dL Normal 74-106 [facility] Comment on above: Performed By: #### P ROT24U #### [facility] [address] [place] [address] Dr. Valeria Farris Potassium [Moles/Vol] 3.9 mmol/L Normal 3.5-5.1 [facility] Comment on above: Performed By: #### P ROT24U #### [facility] [address] [place] [address] Dr. Valeria Farris Protein [Mass/Vol] 6.8 g/dL Normal 6.4-8.2 [facility] Comment on above: Performed By: #### P ROT24U #### [facility] [address] [place] [address] Dr. Valeria Farris Sodium [Moles/Vol] 138 mmol/L Normal 136-145 [facility] Comment on above: Performed By: #### P ROT24U #### [facility] [address] [place] [address] Dr. Valeria Farris Urea nitrogen [Mass/Vol] 10.0 mg/dL Normal 7.0-18.0 [facility] Comment on above: Performed By: #### P ROT24U #### [facility] [address] [place] [address] Dr. Valeria Farris Urea nitrogen/Creatinine [Mass ratio] 28.6 mg/mg Normal [facility] Comment on above: Performed By: #### P ROT24U #### [facility] [address] [place] [address] Dr. Valeria Farris PTTon 06-17-2022 aPTT Coag (Bld) [Time] 26.4 s Normal 22.3-36.2 [facility] Comment on above: Performed By: #### P REGQNT #### [facility] [address] [place] [address] Dr. Valeria Farris UA (CLEAN/CATCH) WEB SITE SPECIALIST/MICRO I F IND.on 06-17-2022 Bilirubin Ql (U) Negative Normal NEGATIVE [facility] Comment on above: Performed By: #### P REGQNT #### [facility] [address] [place] [address] Dr. Valeria Farris Clarity (U) CLEAR Normal CLEAR [facility] Comment on above: Performed By: #### P REGQNT #### [facility] [address] [place] [address] Dr. Valeria Farris Color (U) LT. YELLOW Normal YELLOW [facility] Comment on above: Performed By: #### P REGQNT #### [facility] [address] [place] [address] Dr. Valeria Farris Glucose Ql (U) Negative Normal NEGATIVE [facility] Comment on above: Performed By: #### P REGQNT #### [facility] [address] [place] [address] Dr. Valeria Farris Hemoglobin Ql (U) Negative Normal NEGATIVE [facility] Comment on above: Performed By: #### P REGQNT #### [facility] [address] [address] [address] Valeria Farris Ketones Ql (U) Negative Normal NEGATIVE [facility] Comment on above: Performed By: #### P REGQNT #### [facility] [address] [address] [address] Valeria Farris LEUKOCYTES Negative Normal NEGATIVE [facility] Comment on above: Performed By: #### P REGQNT #### [facility] [address] [address] [address] aVleria Farris Nitrite Ql (U) Negative Normal NEGATIVE [facility] Comment on above: Performed By: #### P REGQNT #### [facility] [address] [place] [address] Dr. Valeria Farris pH (U) 6.5 [pH] Normal 5-9 [facility] Comment on above: Performed By: #### P REGQNT #### [facility] [address] [place] [address] Dr. Valeria Farris SPEC GRAVITY 1.010 Normal 1.005-<=1.02 5 [facility] Comment on above: Performed By: #### P REGQNT #### [facility] [address] [place] [address] Dr. Valeria Farris UA PROTEIN Negative Normal NEGATIVE/ TRACE [facility] Comment on above: Performed By: #### P REGQNT #### [facility] [address] [address] [address] Valeria Farris UR MICRO IND NOT INDICATED Normal [facility] Comment on above: Performed By: #### P REGQNT #### [facility] [address] [address] [address] Valeria Farris Urobilinogen Qn (U) 0.2 {Manolo'U}/dL Normal 0.2 - 1. 0 [facility] Comment on above: Performed By: #### P REGQNT #### [facility] [address] [place] [address] Dr. Valeria Farris URIC ACID SERUMon 06-17-2022 Urate [Mass/Vol] 3.3 mg/dL Normal 2.6-6.0 [facility] Comment on above: Performed By: #### P ROT24U #### [facility] [address] [place] [address] Dr. Valeria Farris PAP ACOG PANEL 2: 30 to 65on 05-29-2022 . . Normal [facility] Comment on above: Result Comment: Perf ormed at: WB Performed By: #### [id number] #### [facility] [address] [place] [address] Dr. Valeria Farris Age Gdln ACOG Testing 30-65 Normal [facility] Comment on above: Performed By: #### [id number] #### [facility] [address] [place] [address] Dr. Valeria Farris DIAGNOSIS: Comment Normal [facility] Comment on above: Result Comment: NEGA TIVE FOR INTRAEPITHELIAL LESION OR MALIGNANCY. Performed at: WB Performed By: #### [id number] #### [facility] [address] [place] [address] Dr. Valeria Farris HPV Aptima Negative Normal Negative [facility] Comment on above: Result Comment: This nucleic acid amplification test detects fourteen high-risk HPV types (16,18,31,33,35,39,45,51,52,56,58,59,66,68) without differentiation. Performed at: =G Performed By: #### [id number] #### [facility] [address] [place] [address] Dr. Valeria Farris HPV Genotype Reflex Comment Normal [facility] Comment on above: Result Comment: Crit eria not met, HPV Genotype not performed. Performed at: WB Performed By: #### [id number] #### [facility] [address] [place] [address] Dr. Valeria Farris Methodology: Comment Normal [facility] Comment on above: Result Comment: This liquid based ThinPrep(R) pap test was screened with the use of an image guided system. Performed at: WB Performed By: #### [id number] #### [facility] [address] [place] [address] Dr. Valeria Farris Note: Comment Normal [facility] Comment on above: Result Comment: The Pap smear is a screening test designed to aid in the detection of premalignant and malignant conditions of the uterine cervix. It is not a diagnostic procedure and should not be used as the sole means of detecting cervical cancer. Both false-positive and false-negative reports do occur. . Performed at: WB Performed By: #### [id number] #### [facility] [address] [place] [address] Dr. Valeria Farris Performed by: Comment Normal [facility] Comment on above: Result Comment: Jaye Simmons, Collection Support Specialist (ASCP) Performed at: WB Performed By: #### [id number] #### [facility] [address] [place] [address] Dr. Valeria Farris Specimen adequacy: Comment Normal [facility] Comment on above: Result Comment: Sati sfactory for evaluation. Performed at: WB Performed By: #### [id number] #### [facility] [address] [place] [address] Dr. Valeria Farris POINT OF CARE GLUCOSEon 0 Glucose [Mass/Vol] 122 mg/dL Critically high 74-106 [facility] Comment on above: Performed By: #### U ACSIND, UMICRO #### [facility] [address] [place] [address] Dr. Valeria Farris UA (CLEAN/CATCH) WEB SITE SPECIALIST/MICRO I F IND.on 05-29-2022 Bilirubin Ql (U) Negative Normal NEGATIVE [facility] Comment on above: Performed By: #### U ACSIND, UMICRO #### [facility] [address] [place] [address] Dr. Valeria Farris Clarity (U) CLEAR Normal CLEAR [facility] Comment on above: Performed By: #### U ACSIND, UMICRO #### [facility] [address] [place] [address] Dr. Valeria Farris Color (U) LT. YELLOW Normal YELLOW [facility] Comment on above: Performed By: #### U ACSIND, UMICRO #### [facility] [address] [address] [address] Valeria Farris Glucose Ql (U) Negative Normal NEGATIVE [facility] Comment on above: Performed By: #### U ACSIND, UMICRO #### [facility] [address] [address] [address] Valeria Farris Hemoglobin Ql (U) TRACE-INTACT Abnormal NEGATIVE [facility] Comment on above: Performed By: #### U ACSIND, UMICRO #### [facility] [address] [address] [address] Valeria Farris Ketones Ql (U) Negative Normal NEGATIVE [facility] Comment on above: Performed By: #### U ACSIND, UMICRO #### [facility] [address] [place] [address] Dr. Valeria Farris LEUKOCYTES Negative Normal NEGATIVE [facility] Comment on above: Performed By: #### U ACSIND, UMICRO #### [facility] [address] [place] [address] Dr. Valeria Farris Nitrite Ql (U) Negative Normal NEGATIVE [facility] Comment on above: Performed By: #### U ACSIND, ICRO #### [facility] [address] [place] [address] Dr. Valeria Farris pH (U) 5.5 [pH] Normal 5-9 [facility] Comment on above: Performed By: #### U ACSIND, UMICRO #### [facility] [address] [address] [address] Valeria Farris SPEC GRAVITY 1.010 Normal 1.005-<=1.02 5 [facility] Comment on above: Performed By: #### U ACSIND, UMICRO #### [facility] [address] [place] [address] Dr. Valeria Farris UA PROTEIN Negative Normal NEGATIVE/ TRACE [facility] Comment on above: Performed By: #### U ACSIND, UMICRO #### [facility] [address] [place] [address] Dr. Valeria Farris UR MICRO IND INDICATED Normal [facility] Comment on above: Performed By: #### U ACSIND, UMICRO #### [facility] [address] [place] [address] Dr. Valeria Farris Urobilinogen Qn (U) 0.2 {Manolo'U}/dL Normal 0.2 - 1. 0 [facility] Comment on above: Performed By: #### U ACSIND, UMICRO #### [facility] [address] [place] [address] Dr. Valeria Farris URINE MICROSCOPIC ONLYon BACTERIA NONE SEEN Normal NONE SEEN [facility] Comment on above: Performed By: #### U ACSIND, UMICRO #### [facility] [address] [place] [address] Dr. Valeria Farris Bacteria identified Cx Nom (U) NOT INDICATED Normal [facility] Comment on above: Performed By: #### U ACSIND, UMICRO #### [facility] [address] [place] [address] Dr. Valeria Farris CAST NONE SEEN Normal NONE SEEN [facility] Comment on above: Performed By: #### U ACSIND, UMICRO #### [facility] [address] [place] [address] Dr. Valeria Farris Crystals LM Nom (Urine sed) NONE SEEN Normal NONE SEEN [facility] Comment on above: Performed By: #### U ACSIND, UMICRO #### [facility] [address] [place] [address] Dr. Valeria Farris Epithelial cells LM Ql (Urine sed) FEW Abnormal NONE SEEN /RARE [facility] Comment on above: Performed By: #### U ACSIND, UMICRO #### [facility] [address] [place] [address] Dr. Valeria Farris MUCOUS NONE SEEN Normal NONE SEEN [facility] Comment on above: Performed By: #### U ACSIND, UMICRO #### [facility] [address] [place] [address] Dr. Valeria Farris RBC 0-2 Normal 0-2 [facility] Comment on above: Performed By: #### U ACSTRUPTI, UMICRO #### [facility] [address] [place] [address] Dr. Valeria Farris WBC NONE SEEN Normal NONE SEEN [facility] Comment on above: Performed By: #### U ACSTRUPTI, UMICRO #### [facility] [address] [place] [address] Dr. Valeria Farris CHLAMYDIA/GONOCOCCUS SARANYA (SW AB/URINE/PAPon 05-26-2022 Chlamydia trachomatis, SARANYA Negative Normal Negative [facility] Comment on above: Performed By: #### [id number] #### [facility] [address] [place] [address] Dr. Valeria Farris Neisseria gonorrhoeae, SARANYA Negative Normal Negative [facility] Comment on above: Performed By: #### [id number] #### [facility] [address] [place] [address] Dr. Valeria Farris AMYLASEon 05-25-2022 Amylase [Catalytic activity/Vol] 30 U/L Normal 25-115 [facility] Comment on above: Performed By: #### P ROT24U #### [facility] [address] [place] [address] Dr. Valeria Farris CARDIAC VERNON 3-6on 3 CK [Catalytic activity/Vol] 119 U/L Normal 26-192 [facility] Comment on above: Performed By: #### P ROT24U #### [facility] [address] [place] [address] Dr. Valeria Farris CK.MB [Mass/Vol] ng/mL Normal <=3.60 [facility] Comment on above: Performed By: #### P ROT24U #### [facility] [address] [place] [address] Dr. Valeria Farris HSTROP <4.0 Normal 4.0-51.3 [facility] Comment on above: Result Comment: CUT- OFF POINTS HAVE BEEN ESTABLISHED BASED ON THE FOURTH UNIVERSAL DEFINITIONS OF MYOCARDIAL INFARCTION. THE UPPER REFERENCE LIMIT (URL) OF TROPONIN, DEFINED THE 99TH PERCENTILE OF cTnI DISTRIBUTION IN A REFERENCE POPULATION, HAS BEEN CONFIRMED THE DECISION THRESHOLD FOR HI DIAGNOSIS. Performed By: #### P [id number] #### [facility] [address] [address] [address] Valeria Farris CARDIAC VERNON ADMITon 023 CK [Catalytic activity/Vol] 121 U/L Normal 26-192 [facility] Comment on above: Performed By: #### P [id number] #### [facility] [address] [place] [address] Dr. Valeria Farris CK.MB [Mass/Vol] 0.51 ng/mL Normal <=3.60 [facility] Comment on above: Performed By: #### P ROT24U #### [facility] [address] [place] [address] Dr. aVleria Farris HSTROP 4.1 pg/mL Normal 4.0-51.3 [facility] Comment on above: Result Comment: CUT- OFF POINTS HAVE BEEN ESTABLISHED BASED ON THE FOURTH UNIVERSAL DEFINITIONS OF MYOCARDIAL INFARCTION. THE UPPER REFERENCE LIMIT (URL) OF TROPONIN, DEFINED THE 99TH PERCENTILE OF cTnI DISTRIBUTION IN A REFERENCE POPULATION, HAS BEEN CONFIRMED THE DECISION THRESHOLD FOR HI DIAGNOSIS. Performed By: #### P [id number] #### [facility] [address] [place] [address] Dr. Valeria Farris MINI 19 ng/mL Normal 9-82 [facility] Comment on above: Performed By: #### P ROT24U #### [facility] [address] [place] [address] Dr. Valeria Farris CBC AUTO DIFFon 05-25-2022 BASO # 0.0 103/ul Normal 0.0-0.1 [facility] Comment on above: Performed By: #### [id number] #### [facility] [address] [place] [address] Dr. Valeria Farris Basophils/100 WBC (Bld) 0.2 % Normal 0.2-2.0 [facility] Comment on above: Performed By: #### 4 [id number] #### [facility] [address] [place] [address] Dr. Valeria Farris EO # 0.1 103/ul Normal 0.0-0.7 [facility] Comment on above: Performed By: #### 4 [id number] #### [facility] [address] [place] [address] Dr. Valeria Farris Eosinophils/100 WBC (Bld) 0.8 % Critically low 0.9-7.0 [facility] Comment on above: Performed By: #### 4 [id number] #### [facility] [address] [place] [address] Dr. Valeria Farris Erythrocyte distribution width (RBC) [Ratio] 13.5 % Normal 11.0-15.0 [facility] Comment on above: Performed By: #### 4 [id number] #### [facility] [address] [place] [address] Dr. Valeria Farris Hematocrit (Bld) [Volume fraction] 30.4 % Critically low 36.0-48.0 [facility] Comment on above: Performed By: #### 4 [id number] #### [facility] [address] [place] [address] Dr. Valeria Farris Hemoglobin (Bld) [Mass/Vol] 9.8 g/dL Critically low 12.0-16.0 [facility] Comment on above: Performed By: #### 4 [id number] #### [facility] [address] [place] [address] Dr. Valeria Farris IG # 0.21 10e3/ul Critically high 0.00-0.03 [facility] Comment on above: Performed By: #### 4 [id number] #### [facility] [address] [place] [address] Dr. Valeria Farris IG % 1.6 % Critically high 0.0-0.5 [facility] Comment on above: Performed By: #### 4 [id number] #### [facility] [address] [place] [address] Dr. Valeria Farris LYMPH # 2.8 103/ul Normal 1.2-3.8 [facility] Comment on above: Performed By: #### 4 [id number] #### [facility] [address] [place] [address] Dr. Valeria Farris Lymphocytes/100 WBC (Bld) 21.3 % Normal 20.5-60.0 [facility] Comment on above: Performed By: #### 4 [id number] #### [facility] [address] [place] [address] Dr. Valeria Farris MANUAL DIFF REQ NO Normal [facility] Comment on above: Performed By: #### 4 [id number] #### [facility] [address] [place] [address] Dr. Valeria Farris MCH (RBC) [Entitic mass] 28.2 pg Normal 26.7-34.0 [facility] Comment on above: Performed By: #### 4 [id number] #### [facility] [address] [place] [address] Dr. Valeria Farris MCHC (RBC) [Mass/Vol] 32.2 g/dL Normal 29.9-35.2 [facility] Comment on above: Performed By: #### 4 [id number] #### [facility] [address] [place] [address] Dr. Valeria Farris MCV (RBC) [Entitic vol] 87.6 fL Normal 81.0-99.0 [facility] Comment on above: Performed By: #### 4 [id number] #### [facility] [address] [place] [address] Dr. Valeria Farris MONO # 0.9 103/ul Critically high 0.3-0.8 [facility] Comment on above: Performed By: #### 4 [id number] #### [facility] [address] [place] [address] Dr. Valeria Farris Monocytes/100 WBC (Bld) 6.8 % Normal 1.7-12.0 [facility] Comment on above: Performed By: #### 4 [id number] #### [facility] [address] [place] [address] Dr. Valeria Farris NEUT # 9.0 103/ul Critically high 1.4-6.5 [facility] Comment on above: Performed By: #### 4 [id number] #### [facility] [address] [place] [address] Dr. Valeria Farris Neutrophils/100 WBC (Bld) 69.3 % Normal 43.0-75.0 [facility] Comment on above: Performed By: #### 4 [id number] #### [facility] [address] [address] [address] Valeria Farris Platelet mean volume (Bld) [Entitic vol] 10.5 fL Normal 9.5-13.5 [facility] Comment on above: Performed By: #### 4 [id number] #### [facility] [address] [address] [address] Valeria Farris PLT 187 103/ul Normal 150-450 [facility] Comment on above: Performed By: #### 4 [id number] #### [facility] [address] [address] [address] Valeria Farris RBC 3.47 106/ul Critically low 4.20-5.40 [facility] Comment on above: Performed By: #### 4 [id number] #### [facility] [address] [address] [address] Valeria Farris WBC 13.0 103/ul Critically high 4.0-11.0 [facility] Comment on above: Performed By: #### 4 [id number] #### [facility] [address] [place] [address] Dr. Valeria Farris CTA CHEST WO W [...] Daryl LOPEZ Date: 2022-05-25 01:55 Normal [facility] CULTURE URINEon 05-25-2022 CULTURE URINE Culture Observations : HEAVY GROWTH OF MIXED GENITAL RIO. NO POTENTIAL PATHOGENS SEEN. Normal [facility] Comment on above: Performed By: #### 4 [id number] #### [facility] [address] [place] [address] Dr. Valeria Farris LIPASEon 05-25-2022 Lipase [Catalytic activity/Vol] 54.0 U/L Critically low 73.0-393.0 [facility] Comment on above: Performed By: #### P ROT24U #### [facility] [address] [place] [address] Dr. Valeria Farris PROF 14(COMP METB)on 023 Albumin [Mass/Vol] 2.5 g/dL Critically low 3.4-5.0 [facility] Comment on above: Performed By: #### P ROT24U #### [facility] [address] [place] [address] Dr. Valeria Farris Albumin/Globulin [Mass ratio] 0.6 {ratio} Normal [facility] Comment on above: Performed By: #### P ROT24U #### [facility] [address] [place] [address] Dr. Valeria Farris ALP [Catalytic activity/Vol] 97 U/L Normal 46-116 [facility] Comment on above: Performed By: #### P ROT24U #### [facility] [address] [place] [address] Dr. Valeria Farris ALT [Catalytic activity/Vol] 25 U/L Normal 14-59 [facility] Comment on above: Performed By: #### P ROT24U #### [facility] [address] [address] [address] Valeria Farris Anion gap [Moles/Vol] 14.2 mmol/L Normal [facility] Comment on above: Performed By: #### P ROT24U #### [facility] [address] [address] [address] Valeria Farris AST [Catalytic activity/Vol] 12 U/L Critically low 15-37 [facility] Comment on above: Performed By: #### P ROT24U #### [facility] [address] [address] [address] Valeria Farris Bilirubin [Mass/Vol] 0.2 mg/dL Normal 0.2-1.0 [facility] Comment on above: Performed By: #### P ROT24U #### [facility] [address] [address] [address] Valeria Farris Calcium [Mass/Vol] 8.5 mg/dL Normal 8.5-10.1 [facility] Comment on above: Performed By: #### P ROT24U #### [facility] [address] [address] [address] Valeria Farris Chloride [Moles/Vol] 103 mmol/L Normal 98-107 [facility] Comment on above: Performed By: #### P ROT24U #### [facility] [address] [address] [address] Valeria Farris CO2 [Moles/Vol] 23.0 mmol/L Normal 21.0-32.0 [facility] Comment on above: Performed By: #### P ROT24U #### [facility] [address] [address] [address] Valeria Farris Creatinine [Mass/Vol] 0.39 mg/dL Critically low 0.55-1.02 [facility] Comment on above: Performed By: #### P ROT24U #### [facility] [address] [address] [address] Valeria Farris EGFR-AF CZECH >60 Normal >=60 [facility] Comment on above: Performed By: #### P ROT24U #### [facility] [address] [address] [address] Valeria Farris EGFR-NON AF CZECH >60 Normal >=60 [facility] Comment on above: Performed By: #### P ROT24U #### [facility] [address] [address] [address] Valeria Farris Globulin (S) [Mass/Vol] 4.0 g/dL Normal [facility] Comment on above: Performed By: #### P ROT24U #### [facility] [address] [address] [address] Valeria Farris Glucose [Mass/Vol] 113 mg/dL Critically high 74-106 [facility] Comment on above: Performed By: #### P ROT24U #### [facility] [address] [address] [address] Valeria aFrris Potassium [Moles/Vol] 3.2 mmol/L Critically low 3.5-5.1 [facility] Comment on above: Performed By: #### P ROT24U #### [facility] [address] [address] [address] Valeria Farris Protein [Mass/Vol] 6.5 g/dL Normal 6.4-8.2 [facility] Comment on above: Performed By: #### P ROT24U #### [facility] [address] [address] [address] Valeria Farris Sodium [Moles/Vol] 137 mmol/L Normal 136-145 [facility] Comment on above: Performed By: #### P ROT24U #### [facility] [address] [address] [address] Valeria Farris Urea nitrogen [Mass/Vol] 8.0 mg/dL Normal 7.0-18.0 [facility] Comment on above: Performed By: #### P ROT24U #### [facility] [address] [address] [address] Valeria Farris Urea nitrogen/Creatinine [Mass ratio] 20.5 mg/mg Normal [facility] Comment on above: Performed By: #### P ROT24U #### [facility] [address] [place] [address] Dr. Valeria Farris UA (CLEAN/CATCH) WEB SITE SPECIALIST/MICRO I F IND.on 05-25-2022 Bilirubin Ql (U) Negative Normal NEGATIVE [facility] Comment on above: Performed By: #### G LU1HR #### [facility] [address] [place] [address] Dr. Valeria Farris Clarity (U) CLEAR Normal CLEAR [facility] Comment on above: Performed By: #### G LU1HR #### [facility] [address] [place] [address] Dr. Valeria Farris Color (U) YELLOW Normal YELLOW [facility] Comment on above: Performed By: #### G LU1HR #### [facility] [address] [place] [address] Dr. Valeria Farris Glucose Ql (U) Negative Normal NEGATIVE [facility] Comment on above: Performed By: #### G LU1HR #### [facility] [address] [place] [address] Dr. Valeria Farris Hemoglobin Ql (U) TRACE-INTACT Abnormal NEGATIVE [facility] Comment on above: Performed By: #### G LU1HR #### [facility] [address] [place] [address] Dr. Valeria Farris Ketones Ql (U) TRACE Abnormal NEGATIVE [facility] Comment on above: Performed By: #### G LU1HR #### [facility] [address] [place] [address] Dr. Valeria Farris LEUKOCYTES Negative Normal NEGATIVE [facility] Comment on above: Performed By: #### G LU1HR #### [facility] [address] [place] [address] Dr. Valeria Farris Nitrite Ql (U) Negative Normal NEGATIVE [facility] Comment on above: Performed By: #### G LU1HR #### [facility] [address] [place] [address] Dr. Valeria Farris pH (U) 6.0 [pH] Normal 5-9 [facility] Comment on above: Performed By: #### G LU1HR #### [facility] [address] [place] [address] Dr. Valeria Farris SPEC GRAVITY >=1.030 Abnormal 1.005-<=1.02 5 [facility] Comment on above: Performed By: #### G LU1HR #### [facility] [address] [place] [address] Dr. Valeria Farris UA PROTEIN Negative Normal NEGATIVE/ TRACE [facility] Comment on above: Performed By: #### G LU1HR #### [facility] [address] [place] [address] Dr. Valeria Farris UR MICRO IND INDICATED Normal [facility] Comment on above: Performed By: #### G LU1HR #### [facility] [address] [place] [address] Dr. Valeria Farris Urobilinogen Qn (U) 0.2 {Manolo'U}/dL Normal 0.2 - 1. 0 [facility] Comment on above: Performed By: #### G LU1HR #### [facility] [address] [place] [address] Dr. Valeria Farris URINE MICROSCOPIC ONLYon BACTERIA SMALL Abnormal NONE SEEN [facility] Comment on above: Performed By: #### G LU1HR #### [facility] [address] [place] [address] Dr. Valeria Farris Bacteria identified Cx Nom (U) INDICATED Normal [facility] Comment on above: Performed By: #### G LU1HR #### [facility] [address] [place] [address] Dr. Valeria Farris CA OX CRYSTALS FEW Normal [facility] Comment on above: Performed By: #### G LU1HR #### [facility] [address] [place] [address] Dr. Valeria Farris CAST NONE SEEN Normal NONE SEEN [facility] Comment on above: Performed By: #### G LU1HR #### [facility] [address] [place] [address] Dr. Valeria Farris Crystals LM Nom (Urine sed) SEEN Abnormal NONE SEEN [facility] Comment on above: Performed By: #### G LU1HR #### [facility] [address] [place] [address] Dr. Valeria Farris Epithelial cells LM Ql (Urine sed) MANY Abnormal NONE SEEN /RARE [facility] Comment on above: Performed By: #### G LU1HR #### [facility] [address] [place] [address] Dr. Valeria Farris MUCOUS TRACE Abnormal NONE SEEN [facility] Comment on above: Performed By: #### G LU1HR #### [facility] [address] [place] [address] Dr. Valeria Farris RBC 2-5 Abnormal 0-2 [facility] Comment on above: Performed By: #### G LU1HR #### [facility] [address] [place] [address] Dr. Valeria Farris WBC NONE SEEN Normal NONE SEEN [facility] Comment on above: Performed By: #### G LU1HR #### [facility] [address] [place] [address] Dr. Valeria Farris VAGINITIS/VAGINOSIS DNA PROB Sam 05-25-2022 Litzy species Negative Normal Negative [facility] Comment on above: Performed By: #### P REGQNT #### [facility] [address] [place] [address] Dr. Valeria Farris Gardnerella vaginalis Positive Abnormal Negative [facility] Comment on above: Performed By: #### P REGQNT #### [facility] [address] [place] [address] Dr. Valeria Farris Trichomonas vaginalis Negative Normal Negative [facility] Comment on above: Performed By: #### P REGQNT #### [facility] [address] [place] [address] Dr. Valeria Farris UA (CLEAN/CATCH) WEB SITE SPECIALIST/MICRO I F IND.on 05-04-2022 Bilirubin Ql (U) Negative Normal NEGATIVE [facility] Comment on above: Performed By: #### P REGQNT #### [facility] [address] [place], [place] [id number] Dr. Valeria Farris Clarity (U) CLEAR Normal CLEAR [facility] Comment on above: Performed By: #### P REGQNT #### [facility] [address] [place] [address] Dr. Valeria Farris Color (U) LT. YELLOW Normal YELLOW [facility] Comment on above: Performed By: #### P REGQNT #### [facility] [address] [place] [address] Dr. Valeria Farris Glucose Ql (U) Negative Normal NEGATIVE [facility] Comment on above: Performed By: #### P REGQNT #### [facility] [address] [place] [address] Dr. Valeria Farris Hemoglobin Ql (U) SMALL Abnormal NEGATIVE [facility] Comment on above: Performed By: #### P REGQNT #### [facility] [address] [place] [address] Dr. Valeria Farris Ketones Ql (U) TRACE Abnormal NEGATIVE [facility] Comment on above: Performed By: #### P REGQNT #### [facility] [address] [place] [address] Dr. Valeria Farris LEUKOCYTES Negative Normal NEGATIVE [facility] Comment on above: Performed By: #### P REGQNT #### [facility] [address] [place] [address] Dr. Valeria Farris Nitrite Ql (U) Negative Normal NEGATIVE [facility] Comment on above: Performed By: #### P REGQNT #### [facility] [address] [place] [address] Dr. Valeria Farris pH (U) 6.5 [pH] Normal 5-9 [facility] Comment on above: Performed By: #### P REGQNT #### [facility] [address] [place] [address] Dr. Valeria Farris SPEC GRAVITY 1.025 Normal 1.005-<=1.02 5 [facility] Comment on above: Performed By: #### P REGQNT #### [facility] [address] [place] [address] Dr. Valeria Farris UA PROTEIN Negative Normal NEGATIVE/ TRACE [facility] Comment on above: Performed By: #### P REGQNT #### [facility] [address] [place] [address] Dr. Valeria Farris UR MICRO IND INDICATED Normal [facility] Comment on above: Performed By: #### P REGQNT #### [facility] [address] [place] [address] Dr. Valeria Farris Urobilinogen Qn (U) 0.2 {Manolo'U}/dL Normal 0.2 - 1. 0 [facility] Comment on above: Performed By: #### P REGQNT #### [facility] [address] [place] [address] Dr. Valeria Farris URINE MICROSCOPIC ONLYon BACTERIA NONE SEEN Normal NONE SEEN [facility] Comment on above: Performed By: #### U ACSIND, UMICRO #### [facility] [address] [place] [address] Dr. Valeria Farris Bacteria identified Cx Nom (U) NOT INDICATED Normal [facility] Comment on above: Performed By: #### U ACSIND, UMICRO #### [facility] [address] [place] [address] Dr. Valeria Farris CAST NONE SEEN Normal NONE SEEN [facility] Comment on above: Performed By: #### U ACSIND, UMICRO #### [facility] [address] [place] [address] Dr. Valeria Farris Crystals LM Nom (Urine sed) NONE SEEN Normal NONE SEEN [facility] Comment on above: Performed By: #### U ACSIND, UMICRO #### [facility] [address] [place] [address] Dr. Valeria Farris Epithelial cells LM Ql (Urine sed) FEW Abnormal NONE SEEN /RARE [facility] Comment on above: Performed By: #### U ACSIND, UMICRO #### [facility] [address] [place] [address] Dr. Valeria Farris MUCOUS TRACE Abnormal NONE SEEN [facility] Comment on above: Performed By: #### U ACSIND, UMICRO #### [facility] [address] [place] [address] Dr. Valeria Farris RBC 0-2 Normal 0-2 [facility] Comment on above: Performed By: #### U ACSZAID LYLESICRO #### [facility] [address] [place] [address] Dr. Valeria Farris WBC NONE SEEN Normal NONE SEEN [facility] Comment on above: Performed By: #### U [facility] #### [facility] [address] [place] [address] Dr. Valeria Farris AMYLASEon 04-12-2022 Amylase [Catalytic activity/Vol] 31 U/L Normal 25-115 [facility] Comment on above: Performed By: #### G LU1HR #### [facility] [address] [place] [address] Dr. Valeria Farris BUNon 04-12-2022 Urea nitrogen [Mass/Vol] 7.0 mg/dL Normal 7.0-18.0 [facility] Comment on above: Performed By: #### G LU1HR #### [facility] [address] [place] [address] Dr. Valeria Farris CBC AUTO DIFFon 04-12-2022 BASO # 0.0 103/ul Normal 0.0-0.1 [facility] Comment on above: Performed By: #### P REGQNT #### [facility] [address] [place] [address] Dr. Valeria Farris Basophils/100 WBC (Bld) 0.3 % Normal 0.2-2.0 [facility] Comment on above: Performed By: #### P REGQNT #### [facility] [address] [place] [address] Dr. Valeria Farris EO # 0.3 103/ul Normal 0.0-0.7 [facility] Comment on above: Performed By: #### P REGQNT #### [facility] [address] [place] [address] Dr. Valeria Farris Eosinophils/100 WBC (Bld) 2.3 % Normal 0.9-7.0 [facility] Comment on above: Performed By: #### P REGQNT #### [facility] [address] [address] [address] Valeria Farris Erythrocyte distribution width (RBC) [Ratio] 12.8 % Normal 11.0-15.0 [facility] Comment on above: Performed By: #### P REGQNT #### [facility] [address] [place] [address] Dr. Valeria Farris Hematocrit (Bld) [Volume fraction] 34.9 % Critically low 36.0-48.0 [facility] Comment on above: Performed By: #### P REGQNT #### [facility] [address] [address] [address] Valeria Farris Hemoglobin (Bld) [Mass/Vol] 11.8 g/dL Critically low 12.0-16.0 [facility] Comment on above: Performed By: #### P REGQNT #### [facility] [address] [place] [address] Dr. Valeria Farris IG # 0.08 10e3/ul Critically high 0.00-0.03 [facility] Comment on above: Performed By: #### P REGQNT #### [facility] [address] [place] [address] Dr. Valeria Farris IG % 0.7 % Critically high 0.0-0.5 [facility] Comment on above: Performed By: #### P REGQNT #### [facility] [address] [address] [address] Valeria Farris LYMPH # 2.6 103/ul Normal 1.2-3.8 [facility] Comment on above: Performed By: #### P REGQNT #### [facility] [address] [place] [address] Dr. Valeria Farris Lymphocytes/100 WBC (Bld) 22.4 % Normal 20.5-60.0 [facility] Comment on above: Performed By: #### P REGQNT #### [facility] [address] [place] [address] Dr. Valeria Farris MANUAL DIFF REQ NO Normal [facility] Comment on above: Performed By: #### P REGQNT #### [facility] [address] [place] [address] Dr. Valeria Farris MCH (RBC) [Entitic mass] 28.5 pg Normal 26.7-34.0 [facility] Comment on above: Performed By: #### P REGQNT #### [facility] [address] [place] [address] Dr. Valeria Farris MCHC (RBC) [Mass/Vol] 33.8 g/dL Normal 29.9-35.2 [facility] Comment on above: Performed By: #### P REGQNT #### [facility] [address] [place] [address] Dr. Valeria Farris MCV (RBC) [Entitic vol] 84.3 fL Normal 81.0-99.0 [facility] Comment on above: Performed By: #### P REGQNT #### [facility] [address] [place] [address] Dr. Valeria Farris MONO # 0.8 103/ul Normal 0.3-0.8 [facility] Comment on above: Performed By: #### P REGQNT #### [facility] [address] [place] [address] Dr. Valeria Farris Monocytes/100 WBC (Bld) 6.8 % Normal 1.7-12.0 [facility] Comment on above: Performed By: #### P REGQNT #### [facility] [address] [place] [address] Dr. Valeria Farris NEUT # 7.8 103/ul Critically high 1.4-6.5 [facility] Comment on above: Performed By: #### P REGQNT #### [facility] [address] [place] [address] Dr. Valeria Farris Neutrophils/100 WBC (Bld) 67.5 % Normal 43.0-75.0 [facility] Comment on above: Performed By: #### P REGQNT #### [facility] [address] [place] [address] Dr. Valeria Farris Platelet mean volume (Bld) [Entitic vol] 10.3 fL Normal 9.5-13.5 [facility] Comment on above: Performed By: #### P REGQNT #### [facility] [address] [place] [address] Dr. Valeria Farris PLT 195 103/ul Normal 150-450 [facility] Comment on above: Performed By: #### P REGQNT #### [facility] [address] [place] [address] Dr. Valeria Farris RBC 4.14 106/ul Critically low 4.20-5.40 [facility] Comment on above: Performed By: #### P REGQNT #### [facility] [address] [place] [address] Dr. Valeria Farris WBC 11.5 103/ul Critically high 4.0-11.0 [facility] Comment on above: Performed By: #### P REGQNT #### [facility] [address] [place] [address] Dr. Valeria Farris CREATININEon 04-12-2022 Creatinine [Mass/Vol] 0.44 mg/dL Critically low 0.55-1.02 [facility] Comment on above: Performed By: #### G LU1HR #### [facility] [address] [place] [address] Dr. Valeria Farris EGFR-AF CZECH >60 Normal >=60 [facility] Comment on above: Performed By: #### G LU1HR #### [facility] [address] [place] [address] Dr. Valeria Farris EGFR-NON AF CZECH >60 Normal >=60 [facility] Comment on above: Performed By: #### G LU1HR #### [facility] [address] [place] [address] Dr. Valeria Farris LIPASEon 04-12-2022 Lipase [Catalytic activity/Vol] 62.0 U/L Critically low 73.0-393.0 [facility] Comment on above: Performed By: #### G LU1HR #### [facility] [address] [place] [address] Dr. Valeria Farris LIVER PROFILEon 04-12-2022 Albumin [Mass/Vol] 2.9 g/dL Critically low 3.4-5.0 [facility] Comment on above: Performed By: #### G LU1HR #### [facility] [address] [address] [address] Valeria Farris Albumin/Globulin [Mass ratio] 0.7 {ratio} Normal [facility] Comment on above: Performed By: #### G LU1HR #### [facility] [address] [address] [address] Valeria Farris ALP [Catalytic activity/Vol] 86 U/L Normal 46-116 [facility] Comment on above: Performed By: #### G LU1HR #### [facility] [address] [place] [address] Dr. Valeria Farris ALT [Catalytic activity/Vol] 14 U/L Normal 14-59 [facility] Comment on above: Performed By: #### G LU1HR #### [facility] [address] [place] [address] Dr. Valeria Farris AST [Catalytic activity/Vol] 12 U/L Critically low 15-37 [facility] Comment on above: Performed By: #### G LU1HR #### [facility] [address] [place] [address] Dr. Vaelria Farris BILI, CONJUGATED 0.1 mg/dL Normal 0.0-0.2 [facility] Comment on above: Performed By: #### G LU1HR #### [facility] [address] [address] [address] Valeria Farris Bilirubin [Mass/Vol] 0.2 mg/dL Normal 0.2-1.0 [facility] Comment on above: Performed By: #### G LU1HR #### [facility] [address] [place] [address] Dr. Valeria Farris Globulin (S) [Mass/Vol] 4.2 g/dL Normal [facility] Comment on above: Performed By: #### G LU1HR #### [facility] [address] [address] [address] Valeria Farris Protein [Mass/Vol] 7.1 g/dL Normal 6.4-8.2 [facility] Comment on above: Performed By: #### G LU1HR #### [facility] [address] [place] [address] Dr. Valeria Farris PROF 14(COMP METB)on 022 Anion gap [Moles/Vol] 13.1 mmol/L Normal [facility] Comment on above: Performed By: #### G LU1HR #### [facility] [address] [address] [address] Valeria Farris Calcium [Mass/Vol] 8.7 mg/dL Normal 8.5-10.1 [facility] Comment on above: Performed By: #### G LU1HR #### [facility] [address] [place] [address] Dr. Valeria Farris Chloride [Moles/Vol] 100 mmol/L Normal 98-107 [facility] Comment on above: Performed By: #### G LU1HR #### [facility] [address] [address] [address] Valeria Farris CO2 [Moles/Vol] 25.4 mmol/L Normal 21.0-32.0 [facility] Comment on above: Performed By: #### G LU1HR #### [facility] [address] [place] [address] Dr. Valeria Farris Glucose [Mass/Vol] 87 mg/dL Normal 74-106 [facility] Comment on above: Performed By: #### G LU1HR #### [facility] [address] [address] [address] Valeria Farris Potassium [Moles/Vol] 3.5 mmol/L Normal 3.5-5.1 [facility] Comment on above: Performed By: #### G LU1HR #### [facility] [address] [address] [address] Valeria Farris Sodium [Moles/Vol] 135 mmol/L Critically low 136-145 [facility] Comment on above: Performed By: #### G LU1HR #### [facility] [address] [address] [address] Valeria Farris Urea nitrogen/Creatinine [Mass ratio] 15.9 mg/mg Normal [facility] Comment on above: Performed By: #### G LU1HR #### [facility] [address] [address] [address] Valeria Farris US PREG CERVICAL LENGTHon [...] GERARD GONZALEZ Date: 2022-04-12 16:39 Normal [facility] UA (CLEAN/CATCH) WEB SITE SPECIALIST/MICRO I F IND.on 04-11-2022 Bilirubin Ql (U) Negative Normal NEGATIVE [facility] Comment on above: Performed By: #### U LETI UMICRO #### [facility] [address] [place] [address] Dr. Valeria Farris Clarity (U) CLEAR Normal CLEAR [facility] Comment on above: Performed By: #### U ACSTRUPTI UMICRO #### [facility] [address] [address] [address] Valeria Farris Color (U) LT. YELLOW Normal YELLOW [facility] Comment on above: Performed By: #### U ACSTRUPTI UMICRO #### [facility] [address] [place] [address] Dr. Valeria Farris Glucose Ql (U) Negative Normal NEGATIVE [facility] Comment on above: Performed By: #### U ACSTRUPTI UMICRO #### [facility] [address] [place] [address] Dr. Valeria Farris Hemoglobin Ql (U) TRACE-INTACT Abnormal NEGATIVE [facility] Comment on above: Performed By: #### U ACSIND, UMICRO #### [facility] [address] [address] [address] Valeria Farris Ketones Ql (U) Negative Normal NEGATIVE [facility] Comment on above: Performed By: #### U ACSIND, UMICRO #### [facility] [address] [place] [address] Dr. Valeria Farris LEUKOCYTES Negative Normal NEGATIVE [facility] Comment on above: Performed By: #### U ACSIND, UMICRO #### [facility] [address] [address] [address] Valeria Farris Nitrite Ql (U) Negative Normal NEGATIVE [facility] Comment on above: Performed By: #### U ACSIND, UMICRO #### [facility] [address] [place] [address] Dr. Valeria Farris pH (U) 6.5 [pH] Normal 5-9 [facility] Comment on above: Performed By: #### U ACSTRUPTI, UMICRO #### [facility] [address] [place] [address] Dr. Valeria Farris SPEC GRAVITY 1.010 Normal 1.005-<=1.02 5 [facility] Comment on above: Performed By: #### U ACSTRUPTI, UMICRO #### [facility] [address] [place] [address] Dr. Valeria Farris UA PROTEIN Negative Normal NEGATIVE/ TRACE [facility] Comment on above: Performed By: #### U ACSTRUPTI, UMICRO #### [facility] [address] [place] [address] Dr. Valeria Farris UR MICRO IND INDICATED Normal [facility] Comment on above: Performed By: #### U ACSTRUPTI, UMICRO #### [facility] [address] [place] [address] Dr. Valeria Farris Urobilinogen Qn (U) 0.2 {Manolo'U}/dL Normal 0.2 - 1. 0 [facility] Comment on above: Performed By: #### U ACSIND, UMICRO #### [facility] [address] [address] [address] Valeria Farris URINE MICROSCOPIC ONLYon BACTERIA NONE SEEN Normal NONE SEEN [facility] Comment on above: Performed By: #### U ACSTRUPTI, UMICRO #### [facility] [address] [address] [address] aVleria Farris Bacteria identified Cx Nom (U) NOT INDICATED Normal [facility] Comment on above: Performed By: #### U ACSIND, UMICRO #### [facility] [address] [place] [address] Dr. Valeria Farris CAST NONE SEEN Normal NONE SEEN [facility] Comment on above: Performed By: #### U ACSIND, UMICRO #### [facility] [address] [place] [address] Dr. Valeria Farris Crystals LM Nom (Urine sed) NONE SEEN Normal NONE SEEN [facility] Comment on above: Performed By: #### U ACSTRUPTI, UMICRO #### [facility] [address] [place] [address] Dr. Valeria Farris Epithelial cells LM Ql (Urine sed) FEW Abnormal NONE SEEN /RARE [facility] Comment on above: Performed By: #### U ACSTRUPTI, UMICRO #### [facility] [address] [place] [address] Dr. Valeria aFrris MUCOUS NONE SEEN Normal NONE SEEN [facility] Comment on above: Performed By: #### U ACSTRUPTI UMICRO #### [facility] [address] [place] [address] Dr. Valeria Farris RBC 0-2 Normal 0-2 [facility] Comment on above: Performed By: #### U ACSTRUPTI UMICRO #### [facility] [address] [place] [address] Dr. Valeria Farris WBC 0-2 Abnormal NONE SEEN [facility] Comment on above: Performed By: #### U ACSTRUPTI, UMICRO #### [facility] [address] [place] [address] Dr. Valeria Farris US PREG ANATOMY SINGLEon [...] ALINE GALICIA Date: 2022-03-28 10:57 Normal [facility] XR SHOULDER RT 2V or >on XR SHOULDER RT 2V or > EXAM: XR SHOULDER RT 2V or > INDICATION: Pain. COMPARISON: None. TECHNIQUE: Right shoulder, 3 views. FINDINGS: No acute fracture or dislocation. Intact glenohumeral and acromioclavicular joints. Unremarkable soft tissues. IMPRESSION: Normal right shoulder. Electronically authenticated by: GILDARDO TAYLOR Date: 2022-03-19 08:36 Normal [facility] AFP TETRA PROFILE (MATERNAL) on 03-08-2022 AFP MoM 0.60 Normal [facility] Comment on above: Performed By: #### U LETI UMICRO #### [facility] [address] [address] [address] Valeria Farris AFP Value 15.2 ng/mL Normal [facility] Comment on above: Performed By: #### U LETI UMICRO #### [facility] [address] [address] [address] Valeria Farris Comment Comment Normal [facility] Comment on above: Result Comment: Nicolás Ramirez, Ph.D., [facility] Director . References: Available Upon Request. . Multiples Of Median Cutoffs Abbreviation Definitions For AFP Elevations IDD- Insulin Dep Diabetes Rodriguez 2.5 Black 2.8 OSBR- Open Spina Bifida IDD 2.0 Twins 4.5 Risk DSR Cutoff 1:270 DSR- Down Syndrome Risk T18 Cutoff 1:100 T18- Trisomy 18 . For further inquiries contact [employer] [facility] at [phone]. . This test was developed and its performance characteristics determined by [employer]. It has not been cleared or approved by the Food and Drug Administration. Performed By: #### U LETI UMICRO #### [facility] [address] [address] [address] Valeria Farris CHACE MoM 0.90 Normal [facility] Comment on above: Performed By: #### U LETI UMICRO #### [facility] [address] [address] [address] Valeria Farris CHACE Value 95.93 pg/mL Normal [facility] Comment on above: Performed By: #### U LETI UMICRO #### [facility] [address] [address] [address] Valeria Farris DSR (By Age) 1 IN 656 Normal [facility] Comment on above: Performed By: #### U LETI UMICRO #### [facility] [address] [address] [address] Valeria Farris DSR (Second Trimester) 1 IN 5782 Normal [facility] Comment on above: Performed By: #### U LETI UMICRO #### [facility] [address] [address] [address] Valeria Archibald. Age on Collection Date 16.7 WEEKS Normal [facility] Comment on above: Performed By: #### U LETI UMICRO #### [facility] [address] [address] [address] Valeria Archibaldat. Age Based On SUNSHINE Normal [facility] Comment on above: Result Comment: 07/23 Performed By: #### U ACSTRUPTI UMICRO #### [facility] [address] [address] [address] Valeria Farris hCG MoM 0.61 Normal [facility] Comment on above: Performed By: #### U LETI UMICRO #### [facility] [address] [address] [place] [address] m[IU]/mL Normal [facility] Comment on above: Performed By: #### U LETI UMICRO #### [facility] [address] [address] [address] Valeria Farris Insulin Dep Diabetes No Normal [facility] Comment on above: Performed By: #### U ACSTRUPTI UMICRO #### [facility] [address] [address] [address] Valeria Farris Interpretation Comment Normal [facility] Comment on above: Result Comment: Inte [...] identifies 60% of Trisomy 18 pregnancies. The [employer] recommends amniocentesis be offered to women age 35 and older. Recalculations are not recommended when gestational dating by LMP and ultrasound are within 10 days. Performed By: #### U ACSIND, UMICRO #### [facility] [address] [address] [address] Valeria Farris [age] Normal [facility] Comment on above: Performed By: #### U ACSIND, UMICRO #### [facility] [address] [address] [address] Valeria Farris Multiple Gestation No Normal [facility] Comment on above: Performed By: #### U ACSIND, UMICRO #### [facility] [address] [address] [address] Valeria Farris [place] [address] Normal [facility] Comment on above: Performed By: #### U ACSIND, UMICRO #### [facility] [address] [address] [address] Valeria Farris PDF . [facility] Comment on above: Performed By: #### U ACSTRUPTI, UMICRO #### [facility] [address] [address] [address] Valeria Farris Race [facility] Comment on above: Performed By: #### U ACSTRUPTI, UMICRO #### [facility] [address] [address] [address] Valeria Farris Results Report [facility] Comment on above: Performed By: #### U ACSIND, UMICRO #### [facility] [address] [address] [address] Valeria Farris T18 (By Age) 1:2556 Normal [facility] Comment on above: Performed By: #### U ACSIND, UMICRO #### [facility] [address] [address] [address] Valeria Farris T18 Risk Not increased [facility] Comment on above: Performed By: #### U ACSIND, UMICRO #### [facility] [address] [address] [address] Valeria Farris Test Results: Negative Normal [facility] Comment on above: Performed By: #### U ACSIND, UMICRO #### [facility] [address] [address] [address] Valeria Farris uE3 MoM 0.75 Normal [facility] Comment on above: Performed By: #### U DAPHNE LANDEROS #### [facility] [address] [address] [address] Valeria Farris uE3 Value 0.71 ng/mL Normal [facility] Comment on above: Performed By: #### U ALEX LANDEROSRO #### [facility] [address] [place] [address] Dr. Valeria Farris GLUCOSE - 1HRon 03-03-2022 Glucose [Mass/Vol] 214 mg/dL Critically high 74-106 T [facility] Comment on above: Performed By: #### G LU1HR #### [facility] [address] [place] [address] Dr. Valeria Farris HEPATITIS C VIRUS AB W/ REFL EX QUANTon 01-11-2022 HCV AB <0.1 Normal 0.0-0.9 [facility] Comment on above: Performed By: #### P REGQNT #### [facility] [address] [place] [address] Dr. Valeria Farris Interpretation: Comment Normal [facility] Comment on above: Result Comment: Nega tive Not infected with HCV, unless recent infection is suspected or other evidence exists to indicate HCV infection. Performed By: #### P REGQNT #### [facility] [address] [place] [address] Dr. Valeria Farris HEP B SURFACE ANTIGEN SCREEN on 01-10-2022 HBsAg Screen Negative Normal Negative [facility] Comment on above: Performed By: #### P REGQNT #### [facility] [address] [place] [address] Dr. Valeria Farris HIV 1 AND 2 WITH REFLEXon HIV Screen 4th Generation wRfx Non-Reactive Normal Non Reactive [facility] Comment on above: Result Comment: HIV Negative HIV-1/HIV-2 antibodies and HIV-1 p24 antigen were NOT detected. There is no laboratory evidence of HIV infection. Performed By: #### H IV12 #### [facility] [address] [place] [address] Dr. Valeria Farris RPR QUANTon 01-10-2022 Rapid Plasma Reagin, Quant Non-Reactive Normal NonRea<1:1 [facility] Comment on above: Result Comment: [place] palomo Note: This test does not meet current guidelines for screening and diagnosis of syphilis. This test is intended for following treatment response in patients being treated for syphilis infection. To screen for syphilis infection, a reflex cascade that includes both RPR and a treponema-specific assay should be utilized, such as Treponema pallidum (Syphilis) Screening [place] (252546) or Rapid Plasma Reagin (RPR) Test With Reflex to Quantitative RPR and Confirmatory Treponema pallidum Antibodies (115266). Performed By: #### R PRQ #### [facility] [address] [place] [address] Dr. Valeria Farris RUBELLA AB IGGon 01-10-2022 Rubella Antibodies, IgG 1.83 index Normal Immune >0.99 [facility] Comment on above: Result Comment: Non- immune <0.90 Equivocal 0.90 - 0.99 Immune >0.99 Performed By: #### U ACSIND, UMICRO #### [facility] [address] [place] [address] Dr. Valeria Farris CBC AUTO DIFFon 01-09-2022 BASO # 0.0 103/ul Normal 0.0-0.1 [facility] Comment on above: Performed By: #### 4 [id number] #### [facility] [address] [place] [address] Dr. Valeria Farris Basophils/100 WBC (Bld) 0.4 % Normal 0.2-2.0 [facility] Comment on above: Performed By: #### 4 [id number] #### [facility] [address] [place] [address] Dr. Valeria Farris EO # 0.3 103/ul Normal 0.0-0.7 [facility] Comment on above: Performed By: #### 4 [id number] #### [facility] [address] [place] [address] Dr. Valeria Farris Eosinophils/100 WBC (Bld) 3.5 % Normal 0.9-7.0 [facility] Comment on above: Performed By: #### 4 [id number] #### [facility] [address] [place] [address] Dr. Valeria Farris Erythrocyte distribution width (RBC) [Ratio] 13.6 % Normal 11.0-15.0 [facility] Comment on above: Performed By: #### 4 [id number] #### [facility] [address] [place] [address] Dr. Valeria Farris Hematocrit (Bld) [Volume fraction] 38.9 % Normal 36.0-48.0 [facility] Comment on above: Performed By: #### 4 [id number] #### [facility] [address] [place] [address] Dr. Valeria Farris Hemoglobin (Bld) [Mass/Vol] 12.9 g/dL Normal 12.0-16.0 [facility] Comment on above: Performed By: #### 4 [id number] #### [facility] [address] [place] [address] Dr. Valeria Farris IG # 0.04 10e3/ul Critically high 0.00-0.03 [facility] Comment on above: Performed By: #### 4 [id number] #### [facility] [address] [place] [address] Dr. Valeria Farris IG % 0.4 % Normal 0.0-0.5 [facility] Comment on above: Performed By: #### 4 [id number] #### [facility] [address] [place] [address] Dr. Valeria Farris LYMPH # 2.1 103/ul Normal 1.2-3.8 [facility] Comment on above: Performed By: #### 4 [id number] #### [facility] [address] [place] [address] Dr. Valeria Farris Lymphocytes/100 WBC (Bld) 21.5 % Normal 20.5-60.0 [facility] Comment on above: Performed By: #### 4 [id number] #### [facility] [address] [place] [address] Dr. Valeria Farris MANUAL DIFF REQ NO Normal [facility] Comment on above: Performed By: #### 4 [id number] #### [facility] [address] [place] [address] Dr. Valeria Farris MCH (RBC) [Entitic mass] 27.9 pg Normal 26.7-34.0 [facility] Comment on above: Performed By: #### 4 [id number] #### [facility] [address] [place] [address] Dr. Valeria Farris MCHC (RBC) [Mass/Vol] 33.2 g/dL Normal 29.9-35.2 [facility] Comment on above: Performed By: #### 4 [id number] #### [facility] [address] [place] [address] Dr. Valeria Farris MCV (RBC) [Entitic vol] 84.0 fL Normal 81.0-99.0 [facility] Comment on above: Performed By: #### 4 [id number] #### [facility] [address] [place] [address] Dr. Valeria Farris MONO # 0.6 103/ul Normal 0.3-0.8 [facility] Comment on above: Performed By: #### 4 [id number] #### [facility] [address] [place] [address] Dr. Valeria Farris Monocytes/100 WBC (Bld) 5.6 % Normal 1.7-12.0 [facility] Comment on above: Performed By: #### 4 [id number] #### [facility] [address] [place] [address] Dr. Valeria Farris NEUT # 6.7 103/ul Critically high 1.4-6.5 [facility] Comment on above: Performed By: #### 4 [id number] #### [facility] [address] [place] [address] Dr. Valeria Farris Neutrophils/100 WBC (Bld) 68.6 % Normal 43.0-75.0 [facility] Comment on above: Performed By: #### 4 [id number] #### [facility] [address] [place] [address] Dr. Valeria Farris Platelet mean volume (Bld) [Entitic vol] 9.9 fL Normal 9.5-13.5 [facility] Comment on above: Performed By: #### 4 [id number] #### [facility] [address] [address] [address] Valeria Farris PLT 244 103/ul Normal 150-450 [facility] Comment on above: Performed By: #### 4 [id number] #### [facility] [address] [address] [address] Valeria Farris RBC 4.63 106/ul Normal 4.20-5.40 [facility] Comment on above: Performed By: #### 4 [id number] #### [facility] [address] [address] [address] Valeria Farris WBC 9.7 103/ul Normal 4.0-11.0 [facility] Comment on above: Performed By: #### 4 [id number] #### [facility] [address] [address] [address] Valeria Farris CULTURE URINEon 01-09-2022 CULTURE URINE Culture Observations : MODERATE GROWTH OF MIXED GENITAL RIO. NO POTENTIAL PATHOGENS SEEN. Normal [facility] Comment on above: Performed By: #### U RCX #### [facility] [address] [address] [address] Valeria Farris GLYCOHEMOGLOBIN A1Con 2021 ADA RECOMMENDATION SEE BELOW Normal [facility] Comment on above: Result Comment: ADA RECOMMENDED LIMIT 4.0 - 6.0 ADA THERAPEUTIC TARGET < 7.0 ACTION SUGGESTED > 7.0 Performed By: #### P REGQNT #### [facility] [address] [address] [address] Valeria Farris Glucose [Mass/Vol] 111 mg/dL Normal [facility] Comment on above: Performed By: #### P REGQNT #### [facility] [address] [address] [address] Valeria Farris HbA1c (Bld) [Mass fraction] 5.5 % Normal 4.5-6.2 [facility] Comment on above: Performed By: #### P REGQNT #### [facility] [address] [address] [address] Valeria Farris LETHA BOX TEST PT SEND OUTo n 01-09-2022 SENT TO REF LAB 01/09/2022 Normal [facility] Comment on above: Performed By: #### N BOX #### [facility] [id number] Valeria Farris TYPE AND SCREENon 01-09-2022 TYPE AND SCREEN Negative Normal [facility] Comment on above: Performed By: #### 4 [id number] #### [facility] [address] [address] [address] Valeria Farris US PREG TVon 12-30-2021 [...] GERARD GONZALEZ Date: 2021-12-30 17:14 Normal [facility] US PREG TVon 12-15-2021 US [...] GERARD GONZALEZ Date: 2021-12-14 22:02 Normal [facility] HCG-BETA SUBUNIT QUANTon hCG,Beta Subunit,Qnt,Serum 571 mIU/mL Normal [facility] Comment on above: Result Comment: Fema le (Non-) 0 - 5 (Postmenopausal) 0 - 8 . Female () Weeks of Gestation 3 6 - 71 4 10 - 750 5 217 - 7138 6 158 - 71175 7 3697 -174401 8 60995 -349136 9 31313 -847245 10 14930 -597537 12 74322 -083579 14 88405 - 21973 15 94734 - 43833 16 9040 - 51428 17 8175 - 04661 18 8099 - 26409 Jamel ECLIA methodology Performed By: #### P REGQNT #### [facility] [address] [place] [address] Dr. Valeria Farris HCG-BETA SUBUNIT QUANTon hCG,Beta Subunit,Qnt,Serum 65 mIU/mL Normal [facility] Comment on above: Result Comment: Fema le (Non-) 0 - 5 (Postmenopausal) 0 - 8 . Female () Weeks of Gestation 3 - 4 - 750 5 217 - 7138 6 158 - 49982 7 3697 -954965 8 40043 -354307 9 34500 -089213 10 86663 -722697 12 07548 -413622 14 17640 - 52748 15 85882 - 06421 16 9040 - 75669 17 8175 - 62449 18 8099 - 17938 Jamel ECLIA methodology Performed By: #### U ACSIND, ALEXRO #### [facility] [address] [place] [address] Dr. Valeria Farris HCG-BETA SUBUNIT QUANTon hCG,Beta Subunit,Qnt,Serum 18 mIU/mL Normal [facility] Comment on above: Result Comment: Fema le (Non-) 0 - 5 (Postmenopausal) 0 - 8 . Female () Weeks of Gestation 3 - 71 4 10 - 750 5 217 - 7138 6 158 - 84224 7 3697 -342995 8 61137 -990819 9 65118 -793848 10 56675 -316087 12 92714 -211822 14 05904 - 00246 15 90097 - 00602 16 5573 - 26855 17 4688 - 77409 18 1015 - 15205 Jamel ECLIA methodology Performed By: #### G LU1HR #### [facility] [address] [place] [address] Dr. Valeria Farris PREG QUANT HCGon 10-05-2021 HCG QUANT <1 Normal [facility] Comment on above: Performed By: #### P REGQNT #### [facility] [address] [place] [address] Dr. Valeria Farris HCG RANGE SEE BELOW Normal [facility] Comment on above: Result Comment: 5-50 0-1 WEEK 40-300 1-2 WEEKS 100-1,000 2-3 WEEKS 500-6,000 3-4 WEEKS 5,000-200,000 1-2 MONTHS 10,000-100,000 2-3 MONTHS 3,000-50,000 2ND TRIMESTER 1,000-50,000 3RD TRIMESTER Performed By: #### P REGQNT #### [facility] [address] [place] [address] Dr. Valeria Farris FREE T4on 09-12-2021 Free T4 [Mass/Vol] 0.88 ng/dL Normal 0.76-1.46 [facility] Comment on above: Performed By: #### P REGQNT #### [facility] [address] [place] [address] Dr. Valeria Farris TSHon 09-12-2021 TSH 1.564 uIU/mL Normal 0.358-3.740 [facility] Comment on above: Performed By: #### 4 [id number] #### [facility] [address] [place] [address] Dr. Valeria Farris TSH RANGE SEE BELOW Normal [facility] Comment on above: Result Comment: <0.3 4 UIU/ml HYPERTHYROID 0.34-5.60 UIU/ml EUTHYROID >5.60 UIU/ml HYPOTHYROID Performed By: #### 4 [id number] #### [facility] [address] [place] [address] Dr. Valeria Farris US VENOUS DOPPLER L [...] GERARD GONZALEZ Date: 2021-09-12 14:31 Normal [facility] Coding Summaryon 10-16-2020 Coding Summary HTMLBase 64 PfxahcprVJl8kJm+PGhlYWQ+ YA1AQXWaD91drQUuuE0UV7fZ CQ8ZXGISUSVPLM7UIK3qiRO6 CUfdM5BdzkDm PxxudYJuAE52JCm7VKW6oAtw CZxizE9pcMSgW8q1BlSsCK05 bI91BIbkXEIsXrD2UyRdutof bWFy Z2pfMpDfnWIhLqb+PHRhYmxl IHdpZHRoPScxMDAlJyBzdHls JJ4zLv2jOATeHQRikNoixFDr OiBj t8ogQRDiHCemCP5arWgoG6Dk gAD8AEBtb2b6Mv59qES+PHRk FTF4lPbeDGcfc924PqIoy5wg IDM3 lVGfSDleGUP0H45sh3Q4WYZm DMYhWKV7gYV4aH7vrSfjgaep O1WkzXGuZiC5XJF4vVPfeX0j bGln yvhysX4zAtl+C38ABH2XEYTF QV2WAox2I9TeQrsogJK+PC90 LKUkEJ32eWPzgSPpn9hjkEm4 JzEw DUMjKPD9nQipCQxjs2WjOBNr I66uuMKku7S8VAMsfIiygIFl KhLcqPX6jB8sLFmudljnl3jb dzsn Hazsy7yerf30iR85M96bHVen XKKrKRH2PPPvRORobYnmjk8v wO2iFd0+JAnma0kvs8mhdHt4 IjIw KWTnyqQxiSyaZCF4m5WjUk80 O5UxcMafh5NlVll0yk77bVEp p1Z2zHW1PIhgZUPoaT5dDAld ZnQ6 HDZrVoZxhN88mICrDHzfOi5u uIjkzVjpBW0vEGUvfeadNVSl fY8oLTTqmQVzhBvcIV5bZTUf bjtm v976UfQaLWV3PZHbbGXkX6Rb qH6eQlRaPYDvLDFuF1GbzRQx OIunV586DZmfCcF8EUHqwzBl Y2Fs NXXjeEkeUuT6s9T5Qe2Xy6Vx powbLIY7ROxbYXH5OpV3DyLh AlP2X3QzVog0HQEreHszCM3n J3Bh LBAichgiihqdfPE2PYTjUFHl qY74yCMjHFflGo5kp2F4t833 DWYlACFcbJ62Rt5vbCvvWGZb dCBU rC2liubjs6kjdnqaWpHfEBOk MJz5FCg3RUOksBvyZkEuVUF1 TgN6PIM3xWTmuK9zyAqqcnwm dG9w Oyc+U34qqS9lTKM9GDZ2ykjn JBPqdyHyVZ92HM77H0AcZdzz dGFibGU+RMGitoThrReuXZ4a YmFj z6ulr3QgPBcdH0XjQNEqUTps Yjn4MABnDKP6lVD2fJ1rQBEz PRgof5T5yDT4G2PlmnZnek7r b2xs ZEPrIEuyZ56asERvm2D3SWGx rVI5LJWqtHpdGsIsrC22Glj+ PFBxqFecu7AuLaryg3qsn0oe dGg9 BvHfEEKlxzCfnLtuMHI4y8Ps Xd67Z49pAYsxKKCqAVZgDELx YVDcxOiyov1rzA7jIc0+PGNv bCB3 lKB9iN6kNHGeWwK0LYquF809 RzEatJLtYrdwb9gxd9tbzRr5 BjBbVABhzyNoyCgqJZV7g8Vm Lz48 A96lBXdnHVMdZYXyQPVdHVLx eXticb4znP3rVs3+YE8fm1tr pv04qA46yZS+EKNhTOV1mGsl PSdw GLBroJ8cRGffLiQ2ZVYjUbJu oQ12sSJyKTbzRl2vfVbhtRhp KS0cVLRzkcejn723YgCzo4pw IDEw bTCzRYtxRRQ7E78xq2A8AMWr WSHhVEC9yBL2qM3naMvrgsdg bGVmdDsgdmVydGljYWwtYWxp Z246 IHRvcDsnPlBhdGllbnQgTmFt SIs1R1StMee7AHFggPwgVF5f vYXaNKtcIs3ytTovbNvbZM6v NTBp mynvw031OnXne2qtRJSqhDDo QOfdTQH2W70hi3S2NWCtENLr LXY9dNB8hN0lzLhnvnpfrSRq dDsg qoCnfUwuPKymOSwgU506QUMn rKaeImChcsTrSNPifKU1CR36 IH00bSMvb4L3lZI9N1AwJTVb bmct clailNI0RCEtFTUamT07Bh6t xOwgUo4yGDLvEFU5BBDcjPBo C5IiqE0xWeRvJTAjAPWcV4Yn eHQt THlsR213NCpxAlC9XIWpzsMb F7KtEQKnnHbbLsY6r7R0Rt4E K2A2HH32YZ84tJYhh0F3bZM9 J3Bh WPXwgcunqbjupVB4ILMlLGBm cW40Rb9gkOxhXu1hETQkKRJ4 OQWkwZVtH3UhyR1uXxJeERPz MDAw E9FrvNQaNLqsB750ZMqbEwH0 BMZuseJxY8CuZBHvfKamWrE2 t9Z7Fa0YGXd7GP23EV18fXGd c3R5 kWS8L0KsRLVtygnaxihyyNZ3 ZYEvFKCexT19Rp9olPpaTj8e FXVcGOB8RAZhgHMtT7TapW2y OiAj MXOeQLBwS3KyjPLxSXybD276 IEnfOkU2JHSilaAkO5PeJYMm mUyrHwO0c8A4Od8LGKBvNP52 IFR5 tHO8WA32NG59A0SlApwnnJUc bGU+PHRhYmxlIHdpZHRoPScx QSEgTfMnxWmkTX0nMm0fCIYw LWNv lBsgcZHbAxNrh8odWIBcMNvz BU1zoMgoT1YstKX5UOFlt7t7 Vv07M51eJ7VdgLT+PGNvbCB3 aWR0 pJ2bAhAgLzB0EEtcC102RoMg fUMfGlnzf2dfi1jsiGc3TnL9 YTHmxvVkpEwbHLC9x6YnOt18 Y29s IHdpZHRoPSIxNSUiIHZhbGln vt8lnJ3uJv2+JHUqfBQ8iAE0 lC7iObWdXxL0FLksS363YoNk cCIv Qwpcf1vdi9nagIl6DqPpKPZw jzQiuHvhZAL6t2GiJq18W7Js mNcah7AvPoc0ov27aFOnd5J6 bGU9 K7VsADJueahtlAEapNvcPF3v WHWndtpuISZfyI8oJMEqH2i3 KjMpGmI0UAjhO3UlfpF4HOXw cHQg SXmfSFG3I69kh3V0DMOaCDUn OOW3bKN9oQ3mrYktwqjkpONl sZgdurCkcQxzHPiqTOyzH377 IHRv oJpzYKSusM8fLKWakNTeoQyp CR0oTDVaydroEmOIOvARPiSB LCBNRUdBTiBNQVJJRTwvdGQ+ PHRk OUO3eLhgWWssVUQvaV4jXOEb N8d8TvYrRiB9PPvtI0RzNGFg kwexVf47mJ0eIpCdAeC5ROgc O2Zv upW1SNQpiMAaQJrsNBK8U34b f5X7HFSfZCExJCK4jVT8bK2j bGlnbjogbGVmdDsgdmVydGlj YWwt UMmsI482QOJjwTxrZfYjRaD5 XeN6DMD4D1WfVno0MJPaxCwz LD9xuVAxMAxpQv9niVoanFaj MC4w TCBxaulvYITnmE3tMRJxuMDy rZrhEE2uRUOhtveub870YmJh ZRC6UCCjcUYqL8FdeN9eInXw MDAw QJYeP3VegCLsMTzsC222JPxx SsE8EZDyheUwP0SbBYNnzGiq FmR6s7B6Mk5tTFLGTINzbeyj dGQ+ OGVeUPR4cTlpGAdxXHDneK3e YOGaS5x7IoWhUdF6TGsxF6Or LIMubnqdPa73mY7mAcMkBwL3 MGlu O1XopwD7ESLpdZHtQTxjGDW0 M45cu1Y2MJBsXKPcXCL5aFY1 sZ3scEvamejtaPFqxGrjmfWn dGlj DXxeXOmhK342SVFifCoqIkHM TUFMRTwvdGQ+TSKeTGC7mUpu IMrjYILkrL1dXPYrD7u3BoEs LjA1 GTbfW8QfUQZwoyrgFa30hU4p HlQdKrG5XYvsU4BkxtD8CXDl fFNrEYzpAMV0X99fa6G8ZHSx MDAw ANB1yXW6pF2pwSnrqcgxxQDa iTlistFuhGypEIunSFdhG527 OQZquEbeHn0EBR09RT16V0Yy Pjwv dGFibGU+PHRhYmxlIHdpZHRo MRyaOVThLcNykJlzER0zNz9o BZQfZVFcbXfemMDeLnFzw4yq YXBz CWdbTY9wlAwhB4HfdLG8YNUq y8i0Wt70S53wA4ErxNG+PGNv wCI4aGL4cL4lIvQnMjB8CAtv Z249 DzMnuSNfZblpm8yum1qkyJz2 QtZwEPAszmGafDcsXYL4v6Ci Sg09K36xHBykPUSfFCDoQACz IHZh fDppwv2okI7tCx0+PGNvbCB3 sNP3oO7wXiLfCqD6YFnlY229 UvPkvJOcDzqgM49cK2HhoVH+ PHRy Usd7AGDfpUzuEP5quFJmAVuz Wf9nYEG8GpNqJeGdLRumU3Sx BRNdidukclzlrIP5LNIgBMNs aW47 Ea2bcBmpKu5xSYMrCQI8PGXi wHNsC0IhgB3fRzBjZXXjMHRf M3DcrMAbZEaiE803BSmoTfZ1 IHZl oiAlA4DsGMTlfHxfTcM5x6E5 Na8BkCenxIRkFW0fHjDfPNr1 S6NlAbk7GABkvPrwCF4rhVFu ZGlu Kg6rgPhdtWsoQZ6wGWMgkjif n413NqZjd7ekRAPswIMgXKmx XPS5S37lt7L9ZXGnCXNgWEY6 dGV4 zO2rgOiuhyiztPPczYbmrvVi gIuvGNbbOUqxB797WSEquFmg PwUWYvj0W8GnEkk1TZFzgCvf ZT0n xMNpENxkLu8xdKumyUllHL8g JKJhcvjwl978GjTci5cdPWUj zKNtJMleSCM2Y32wx1U0UEYi MDAw CBI6bKW0aJ9iyGmsidxxnSXc qYwlonYuwCqdWJiqTPreG148 WTVbvJvpXm3DYus4M3JuEkz3 ZCBz rZyuZH3egXLtUIgrIu6akMbe uQtjVB3xRSFvkbeyp104IhRk j0qbIIHnsXOfGSyzDZN4R26k b3I6 ZEPxBFYsOYL7fCX8oN0iiUvj bjogbGVmdDsgdmVydGljYWwt HJskD653ECMbpNrpMbMldHYy Ojwv dGQ+MC46hp09M4CtFelaGih9 VCKvZMV6xSL6jI7qDEZjUPad h2K4tTE0O5ZwwmQqhh4zb1ur YXBz ZTo (more content not included)... [facility] Coding Summary HTMLBase 64 QpqfqpfpKNs3dMd+PGhlYWQ+ AS2UNBYpV76kiMQarI0NJ5hT NM0FJXZHPQCQXD6OPQ3wuSD5 WJxvZ8ZgusDb QzbtuPVqZN38JTm1CXM0bWek OHnwlQ1fpEUpB1u4ZoInUH45 qD79RVkfJGFjVzL3JcXxptoz bWFy W1khOyEjyHSmInz+PHRhYmxl IHdpZHRoPScxMDAlJyBzdHls RD8yLi8hKYZoYLNjkHzcuNMs OiBj v7siAFVnUSnwKQ3ycMenA2Uc lBU6YVYij3l7Ty93uVT+PHRk XBD1lBzxGYcfh076ZnEtw7gx IDM3 iOKyIVbtRIB9H23fs1H2YLHb KMCfIRL8aVU5zS6pjEqggerj S7LfyFWhSeN4AWL2iRFjvW8x bGln xwdckV8rLmz+T89NCZ3RMZWB LH0KFcy7K4VsTprbgSY+PC90 BOAoHW71wSCfjPZng1srbBj1 JzEw RRMoKEE5aKjiMSduf6XrWKNz R92skDLxy3U9CNBtjRouiMXk VdIsiRW4oW5nPNdlpflmg8nw dzsn Qfubn3gpgd32yK40V76mXGqu IZVlVSZ6GZUrGRZioQdezg7d kY9eCq0+CCcvz8kuj4ccmUq2 IjIw TXCgzbTrfOlhNCD9y2NoWs49 T7UatGwcm2ShNft2cy32pSOu p3V8aFD5WXsjCZWwcF1aSMbg ZnQ6 KNOpNqMgqK30tAYhDTpwPa9c cGlwoNcuKG5sTNAyqkmhSSRu gD0lZKEutANvwYngWQ5mTHIx bjtm i322UlFsBLL9NJZkoCTlF8Js yC4qMkEdLNQcRTLpF7LeyFRl VShsT538QJhiQdB7XJQwgbCg Y2Fs QQGttJskLhD8a1J7Bd5Dz6Mm fegoOWJ6QTatEWV3QlS2UlVw XpT1P6SqDhb4EDXudHmuGY9b J3Bh DFPkyqvqavdydJR8EXVhSGKv tX49dAIdBVdpDu1ns0B0s304 JKEzJVXhxJ64Bd3prLmxBJVv dCBU zE6wqkiqc5pwbifxNyDiUZVw ACq4BEh5RFUldYzqLpXzSBJ0 XbK9FEN2bOUbnE7siQxjdutn dG9w Oyc+X54zlI5uWTV5YZV2qrkb LIWpvnUbDZ19OY69T7FiKsng dGFibGU+KRMzdsFluQpkRN7a YmFj t3gmm3FsHFgzA4IlGFAaWEgv Wjq7EDWuJQH1gGL2dI5xDHFb KYnxt6K0nIM9Y4YftoBiuf1g b2xs LKAiYRgnH05qbYYtk8S7ESId yNS8VWMjkXvlPgZobB28Npf+ WJGijLinz0HvMdlgg4piq6vy dGg9 ZlExNCIbpiXctFelUWU9p6Cp Bo11J70cZUilAAJmTJZqISUz YGTvpXszju0kwK7fDx8+PGNv bCB3 bAR3uI3oSUTvTtI2HYpqS531 AgJrlSVqQpvkw8arw7aeyXq7 KpHtDZGzhlWkpCelSPO4h6Rb Lz48 V18jMQrfPIQtRTLwKEHgWUXv iLxifb2hcL8pOc1+XV9eg6sq ky72kF86fJC+IFXuQLK1dVjc PSdw JEKyjJ9eQYdsCvC6KNCsTrQa hK52wJHcFXpsVf5blCiyhYmz DE0wSIAycrucn362GmWvm0qd IDEw iJZwTQwrQUX9B51ge3D6FMVl FMErXSU9qJL7kZ0efVeofrfc bGVmdDsgdmVydGljYWwtYWxp Z246 IHRvcDsnPlBhdGllbnQgTmFt OKv9C9KwDqr3QPMzxSkqKK8d lWImJJpzLk0ogQkjqDmhYN2w NTBp xxxji559VrKtj0uxREOpcMLb XFhzKSN4R68vf3B9RBRxEKLt GWV9uOK4jX1fmMnorxtdqIEj dDsg byXxcOgcCVitRJzyG170UXUs jGbkRmWnpnVqIEPrkJT9UO34 WH97aIFed6T4aLD7X8ZcVYLk bmct vkaawCU6KQEaRRMsvO06Gq7t lTpwAg2vTQOeIDP7OUEtzFYu Q6YceE9rTjAhSMFdTEYcM3By eHQt ARtrU434PFghUtO4QPSrjcKi W6OzNKRooLjnUiB2z4W7Bu7T L8M1DM41GE30zZKlr8K5iIB7 J3Bh RFWwaoqgkswhhOY3HGZzHILi vY53Vr1ybTmwBm8pQTApVRF6 CKHgiJUmO4FjdA3eQiJnKJZu MDAw E3QtfHElEOjhB082GKeaPlN8 XKPqznJpI9BiKMTshPdaQhN6 f7Q9Vr1XTFf1ZN29OK57eTGr c3R5 hBR8I6ZqXZFgzxaehxgwyRW9 ETIzPQFsmX91Re2bePfxWk2k NYVlSKN0WBDvzUTdP8KarZ2r OiAj TPIeVUZxL7DbqJYmBDjiN190 JHhcMkU3XGThizFkK3VgPZCz qBzjRwV5e6B1Fg2ANZBhED50 IFR5 fCV2IS59NY59C1QzMosttQKp bGU+PHRhYmxlIHdpZHRoPScx WTJuYkQifFmuGS4gWt1sSVYd LWNv aDxvuUYtOhFxr5nhDEOoOArc RB5wzUbmR9LwmEE6HIHvy6c3 Hg52Q87fA0FtzQM+PGNvbCB3 aWR0 aW7uQeQvJeC5AIamG165AcYl yHUpBffoq4kcg1ugpHs5RoE2 WXIhelLvkGstYPR6w2DjTf09 Y29s IHdpZHRoPSIxNSUiIHZhbGln wk5ttF2aSe1+QKQthFV7mOU1 yP8dMoAzMjL5ANiyC339SkZq cCIv Ijjpy9xzd9iuiAs6DwGrXJYu frIvqNkzULN0y3BgLv87B4Ap kXqii1QvVap9qy66fDJgb8B1 bGU9 Z4OrLQRolzsdpOGbmVinHR7m JKCxrvenFCWmgB9jLLStC1m1 DvZeYeU3PShwF8HntbC7QZCo cHQg OGhcFPV9U87wh7Z5WTQwMEWr OEC1oRO6oT1ctMvjbpxqrQRi sDibnlImdZfgHHbrQQndQ985 IHRv uYheRNGilG6pRYZecSRwfChz IW5hRIMtvocgGuDOYtFBXoJL LCBNRUdBTiBNQVJJRTwvdGQ+ PHRk MPD1bPfkLSedNSOexT0cVXBi J5n9HsRzNuD9BPmuY8JnXJGv qnljOg94aS4nAkJcOwJ8NLld O2Zv wnA0KZDomDXnMLbdZUB3C67q v8X6KQZyFFLbQHQ2iZJ0qQ1a bGlnbjogbGVmdDsgdmVydGlj YWwt CZloW094JEKulAjiYhOmOqA7 UsR7PDN9N1LgOhb5WAQmcOin QU3ijPIlABqiTw0cfDhktEwi MC4w YODcjcruSMDhaS4yOCYjnAXd dDdbIO3cZIDunvkka774PmAw NWB6CBPzxMRzC7HxbN8fBdKb MDAw WNEtT9PkjFKbKWlgT934WXkj IjG6TTSuajUxI9BtCFEugDjb QdE4p3T3Yb5rHAROXIJebeen dGQ+ VIJqPWO4wYxnTDszKYWpqJ8y XZYfV5r2DePfEmM2DCudR7Jr MQRfkikkUz85bV0zUiIoWcW7 MGlu S2QlodA9SJQhhZAvCHbnIXM0 L92sv3I2AXDhSCHuSYD2vKX0 jQ0gmEetbrjqwMBduVdjvoGu dGlj OAsvVTkxP949GESwhYikUxBC TUFMRTwvdGQ+GNNpWUZ6qCiz LOlnDQRfaD9iJBRlV6i2NaQy LjA1 BKotT7MyCTLbpgskUj19tW6o NxRxIxW9JQbdU4SzufZ7GWUp iZGbDWadZOG6A46fy9Y4LKLy MDAw JPF4oGX1iK5jvGgdlmhezIMg mWdmnpSwfLswKWhjFXyiX165 QMOvxKwfSeUlTVCxUW2jgIcu dGQ+ MK36ry57J1FjIrkqIvt4VMTd QUS0jFA0mM0cXHHgUHttt6C3 oXV0R7BljoYwlx8jo4toBKVq ZTog Q12sbZVkj6D4VHNxnBH0VPFn oSahYsRvvV77Asx+PGNvbGdy c5GkCthyy4oed6zcvSh7QePs JSIg voBxkQfkDZJ4e8BsQq60T61r IHdpZHRoPSIzMCUiIHZhbGln xa8hzH3nUz3+ZWEblJJ1dZM4 aD0i BdXxPnC8ZWuhK465VtLvkSWf Tcuvr4ubq0mdxSx4VyByKNKs ucMxfVroNMD8a6QeEa81E7Ra bGdy q3KlUpk1vb91jXFig4A1jKM9 F4MqQKAqtoxmhYKwrKjvCO4j IXVhquffJZPceZ4pZBYdH4w7 OiAw HgE9BWqoB5TpdxC6QSBinQBl TSYvqQEKgN4asmqbc1whbrsz MmLiAZMiWQk2AUd2CJYfzBww OiBs JMT0IrH6XSB4jTQwlA6frXfx emqiyE3rYbl+YPf7t9dyyWZk JT0xvLC2DY94EW41vDVmq7Y2 bGU9 G2MgXCKuddsbvfculPY2KMXv DRAwgJ60Bq2hjYwlGi7sSEEd EJA5NTJmvVQwZ2CunE0mXcYz MDAw TDBpB6JlsWMyROhyP721UUyh FzI7IBHqgyGxJ6McMRKbbBko SxI4m7X2Nq5VUX42GN81DA52 dGQg p2R0qQZ6P0VxITSuckdceyvk xWJ5GKZdCTTukQ65Xv8xjJey Hj6tEETxXMF0WPDvfCLdF8Mf bG9y AkBdXJVwJIRmX2VybXAyCOka H950VTzeIcO6IKNeijLqK6Nh LCUqeCirZtE9e0L0Au9FKl14 PC90 DD69xZIan3W9dSS8A8SaPTHg yxzkcamqlZL7XJSeCRYrgU98 Cj8hlTjiZt6dABUpJCM3XJHp bWVz Z7GjcD6vPaNgWQHgKNXeZ8Lv oDAcUMfaG084HRpiDiH9KAWp rwGfX0GvHMBqpMlgRkV8l2P3 Jz5Q MRwgmax7H7DcYppjsUD+PC90 HWQjZF00iGFacAMvr4dswAx8 VzYcCRNrGRY9qBvpRDblb1Ee ZXIt Y29 (more content not included)... Normal [facility] .Auto Diff 10-11-2020 Auto Arthur % 6 % Normal 12 [facility] Comment on above: Performed By: #### 7 160721, [id number], [id number], [id number] ####[facility] (DEFAULT)[address] [place] [address] 36155 Baso Abs# 0.0 x10 Normal 0.0-0.2 [facility] Comment on above: Performed By: #### 7 343309, [id number], [id number], [id number] ####[facility] (DEFAULT)[address] [place] [address] 80945 Basophils/100 WBC (Bld) 0.3 % Normal 0.2-2.0 [facility] Comment on above: Performed By: #### 7 036174, [id number], [id number], [id number] ####[facility] (DEFAULT)[address] [place] [address] 30797 Eos Abs# 0.2 x10 Normal 0.0-0.4 [facility] Comment on above: Performed By: #### 7 161246, [id number], 04560951, [id number] ####[facility] (DEFAULT)[address] [place] [address] 55519 Eosinophils/100 WBC (Bld) 3.4 % Normal 0.9-4.0 [facility] Comment on above: Performed By: #### 7 029326, [id number], 95798725, [id number] ####[facility] (DEFAULT)[address] [place] [address] 12377 Lymph Abs# 2.5 x10 Normal 1.3-2.9 [facility] Comment on above: Performed By: #### 7 937592, [id number], 63735450, [id number] ####[facility] (DEFAULT)[address] [place] [address] 96630 Lymphocytes/100 WBC (Bld) 41 % Normal 14-48 [facility] Comment on above: Performed By: #### 7 873961, [id number], 80832033, [id number] ####[facility] (DEFAULT)[address] [place] [address] 80352 Arthur Abs# 0.4 x10 Normal 0.0-0.8 [facility] Comment on above: Performed By: #### 7 470366, [id number], 58020862, [id number] ####[facility] (DEFAULT)[address] [place] [address] 46860 Neut Abs# 3.0 x10 Normal 1.5-9.2 [facility] Comment on above: Performed By: #### 7 154943, [id number], 19790424, [id number] ####[facility] (DEFAULT)[address] [place] [address] 62077 Neutrophils/100 WBC (Bld) 50 % Normal 44-88 [facility] Comment on above: Performed By: #### 7 066557, [id number], 40403651, [id number] ####[facility] (DEFAULT)[address] [place] [address] CBC w/ Auto Diffon 1 Erythrocyte distribution width (RBC) [Ratio] 13.2 % Normal 11.5-15.0 [facility] Comment on above: Performed By: #### 7 477331, [id number], 02872124, [id number] #### [facility] (DEFAULT) [address] [place] [address] Hematocrit (Bld) [Volume fraction] 36.8 % Normal 33.7-40.4 [facility] Comment on above: Performed By: #### 7 465133, [id number], 71366589, [id number] #### [facility] (DEFAULT) [address] [place] [address] Hemoglobin (Bld) [Mass/Vol] 12.4 g/dL Normal 11.3-15.9 [facility] Comment on above: Performed By: #### 7 412337, [id number], 90211290, [id number] #### [facility] (DEFAULT) [address] [place] [address] Instr WBC 6.1 x10 Invalid Interpretation Code [facility] Comment on above: Performed By: #### 7 905468, [id number], 87730317, [id number] #### [facility] (DEFAULT) [address] [place] [address] Man Diff? Auto Normal [facility] Comment on above: Performed By: #### 7 141456, [id number], 92778961, [id number] #### [facility] (DEFAULT) [address] [place] [address] MCH (RBC) [Entitic mass] 29 pg Normal 24-34 [facility] Comment on above: Performed By: #### 7 268392, [id number], 36552294, [id number] #### [facility] (DEFAULT) [address] [place] [address] MCHC (RBC) [Mass/Vol] 34 g/dL Normal 26-37 [facility] Comment on above: Performed By: #### 7 713688, [id number], 98381188, [id number] #### [facility] (DEFAULT) [address] [place] [address] MCV (RBC) [Entitic vol] 87 fL Normal 81-100 [facility] Comment on above: Performed By: #### 7 983031, [id number], 54928610, [id number] #### [facility] (DEFAULT) [address] [place] [address] Platelet 204 x10 Normal 138-427 [facility] Comment on above: Performed By: #### 7 189307, [id number], 05495253, [id number] #### [facility] (DEFAULT) [address] [place] [address] Platelet mean volume (Bld) [Entitic vol] 9.6 fL Normal 6.3-10.2 [facility] Comment on above: Performed By: #### 7 849875, [id number], 27217428, [id number] #### [facility] (DEFAULT) [address] [place] [address] RBC 4.25 x10 Normal 3.70-5.30 [facility] Comment on above: Performed By: #### 7 691271, [id number], 67745362, [id number] #### [facility] (DEFAULT) [address] [place] [address] WBC 6.1 x10 Normal 3.5-10.5 [facility] Comment on above: Performed By: #### 7 071258, [id number], 50220410, [id number] #### [facility] (DEFAULT) [address] [place] [address] CMP Standardon 10-11-2020 Albumin [Mass/Vol] 3.9 g/dL Normal 3.5-5.0 [facility] Comment on above: Performed By: #### 7 227932, [id number], 57298973, [id number] ####[facility] (DEFAULT)[address] [place] [address] 99968 Albumin/Globulin [Mass ratio] 1.3 {ratio} Low 1.4-2.6 [facility] Comment on above: Performed By: #### 7 509812, [id number], 71001515, [id number] ####[facility] (DEFAULT)[address] [place] [address] 96615 Alk Phos 67 IU/L Normal 32-91 [facility] Comment on above: Performed By: #### 7 213898, [id number], 09458013, [id number] ####[facility] (DEFAULT)[address] [place] [address] 90308 ALT [Catalytic activity/Vol] 28.0 U/L Normal 14.0-54.0 [facility] Comment on above: Performed By: #### 7 298159, [id number], 43211994, [id number] ####[facility] (DEFAULT)[address] [place] [address] 40851 Anion gap [Moles/Vol] 14.0 mmol/L Normal 5.0-19.0 [facility] Comment on above: Performed By: #### 7 416768, 1268808726, 49386450, [id number] ####[facility] (DEFAULT)[address] [place] [address] 57968 AST [Catalytic activity/Vol] 16 U/L Normal 15-41 [facility] Comment on above: Performed By: #### 7 902165, 2468489036, 63917433, [id number] ####[facility] (DEFAULT)[address] [place] [address] 08174 Bili Total 0.3 mg/dL Normal 0.3-1.2 [facility] Comment on above: Performed By: #### 7 913277, 0848703974, 98475420, 1347220764 ####[facility] (DEFAULT)[address] [place] [address] 94039 Calcium [Mass/Vol] 9.0 mg/dL Normal 8.9-10.3 [facility] Comment on above: Performed By: #### 7 433130, [id number], 94968329, [id number] ####[facility] (DEFAULT)[address] [place] [address] 50021 Chloride [Moles/Vol] 109 mmol/L Normal 101-111 [facility] Comment on above: Performed By: #### 7 060047, [id number], 24676654, [id number] ####[facility] [facility] (DEFAULT[facility] [place] [address] 82749 CO2 [Moles/Vol] 21 mmol/L Normal 21-32 [facility] Comment on above: Performed By: #### 7 [id number], [id number], [id number], [id number] ####[facility] (DEFAULT)[address] [place] [address] 33596 Creatinine [Mass/Vol] 0.90 mg/dL Normal 0.60-1.30 [facility] Comment on above: Performed By: #### 7 [id number], [id number], [id number], [id number] ####[facility] (DEFAULT)[address] [place] [address] 04702 Globulin (S) [Mass/Vol] 3.1 g/dL Normal 1.5-4.3 [facility] Comment on above: Performed By: #### 7 [id number], [id number], [id number], [id number] ####[facility] (DEFAULT)[address] [place] [address] 72012 Glucose [Mass/Vol] 95.0 mg/dL Normal 74.0-118.0 [facility] Comment on above: Performed By: #### 7 [id number], [id number], [id number], [id number] ####[facility] (DEFAULT)[address] [place] [address] 48983 Osmolality 282 mOsm/L Invalid Interpretation Code [facility] Comment on above: Performed By: #### 7 [id number], [id number], [id number], [id number] ####[facility] (DEFAULT)[address] [place] [address] 27318 Potassium [Moles/Vol] 4.0 mmol/L Normal 3.6-5.1 [facility] Comment on above: Performed By: #### 7 [id number], [id number], [id number], [id number] ####[facility] (DEFAULT)[address] [place] [address] 69518 Protein [Mass/Vol] 7.0 g/dL Normal 6.5-8.1 [facility] Comment on above: Performed By: #### 7 [id number], [id number], [id number], [id number] ####[facility] (DEFAULT)[address] [place] [address] 56305 Sodium [Moles/Vol] 140.0 mmol/L Normal 136.0-144.0 [facility] Comment on above: Performed By: #### 7 [id number], [id number], [id number], [id number] ####[facility] (DEFAULT)[address] [place] [address] 11803 Urea nitrogen [Mass/Vol] 20 mg/dL Normal 8-26 [facility] Comment on above: Performed By: #### 7 [id number], [id number], [id number], [id number] ####[facility] (DEFAULT)[address] [place] [address] 62778 Urea nitrogen/Creatinine [Mass ratio] 22.2 mg/mg High 4.6-16.2 [facility] Comment on above: Performed By: #### 7 [id number], [id number], [id number], [id number] ####[facility] (DEFAULT)[address] [place] [address] 70222 Discharge Instructionson Discharge Instructions [id number] TIFF Normal [facility] ED Clinical Summaryon 2020 ED Clinical Summary [facility] - Emergency Department [address] [place] [id number] ED Clinical Summary PERSON INFORMATION Name: YANI WOODY Age: 30 Years Sex: FEMALE : 1990 MRN: Acct#: Visit Reason: Pelvic pain; PELVIC AREA PAIN Arrival: 10/11/2020 09:15:57 Discharge: 10/11/2020 12:33:00 LOS: 000 03:18 Check In: 10/11/2020 09:15:57 Checkout:10/11/2020 12:33:00 Address: [address] [place] [address] PCP: Provider, None PROVIDER INFORMATION Provider Role Assigned Unassigned DAVID GALVAN ED PA 10/11/2020 09:24:51 Linn Decker PEST CONTROLLER ASSISTANT Nurse 10/11/2020 09:28:06 Kristi Case PEST CONTROLLER ASSISTANT Nurse 10/11/2020 11:45:12 VITALS INFORMATION Vital Sign [...] test which were negative. She contacted her parts administrator who indicated he could not see her [...] - pharynx pink and moist. NECK: -Supple (yihh-[id number]): non-tender. CARD: -Rate and rhythm: Regular -Edema: No -Calf pain: No RESP: -Respiratory effort and chest excursion with respirations: Normal -Breath sounds equal bilaterally: Clear -Wheezes: No -Rales: No BACK: -Signs of pain with movement: No ABD: -Distended: No -Bruits: No -Bowel sounds: Normal. -Deep palpation: Non-tender, soft, no guarding or r (more content not included)... Normal [facility] ED Note - Physicianon 2020 [...] test which were negative. She contacted her parts administrator who indicated he could not see her [...] - pharynx pink and moist. NECK: -Supple (ccgl-lx-scnxn): non-tender. CARD: -Rate and rhythm: Regular -Edema: [...] report. I r (more content not included)... [facility] ED Note-Nursingon 10-11-2020 ED Note-Nursing Patient arrives to [facility] ED via private car with c/o right [...] light within reach. Will continue to monitor. [facility] ED Patient Summaryon 021 ED Patient Summary [facility] - Emergency Department [address] [place] [address] PATIENT DISCHARGE INSTRUCTIONS Patient Information Name: YANI WOODY Age: 30 Years Date of : 1990 Reason For Visit: Pelvic pain; PELVIC AREA PAIN Arrival Time: 10/11/2020 09:15:57 Primary Care Physician: Provider, None Attending Physician: Linus Neumann MD Comment: Visit Diagnosis: Diagnoses This Visit Ovarian cyst (N83.209) Pelvic congestion syndrome (N94.89) Pelvic pain ([id number] -[id number]) Prescription Information: If you have been given a prescription for narcotics, seek immediate medical attention if you have any difficulty breathing or any sudden status changes such as confusion and sleepiness. If you or anyone you know is experiencing suicidal thoughts, mental health, alcohol and/or drug addiction problems; contact the [facility] 13/11 Crisis Hotline -text 4HLJH ch 498868. If you received any narcotics, sedation, or [...] legal documents With: Address: When: Cordelia Donahue [address] [place] [address] Business (1) Within 2 to 4 days Comments: Follow-up with parts administrator in the next few days for reevaluation. Return at anytime for reevaluation or if you have worsening symptoms, vaginal bleeding, chest pains, shortness of breath or any other problems. Continue to stay hydrated. Medication Information: The exam and treatment you received today in the [facility] Emergency Department were for an urgent problem and are not intended as complete care. It is important for you to follow up with a doctor, nurse practitioner, or physician?s certified physician assistant for ongoing care. If your symptoms [...] so we can reach you if necessary. [facility] Emergency Department has provided you with a complete list of medications post discharge. Please inform your primary care coordinator/provider of your visit and for further [...] (Inserted Image. Unabl (more content not included)... [facility] Extra Greenon 10-11-2020 Tube Collected Yes Invalid Interpretation Code [facility] Comment on above: Performed By: #### 7 [id number], [id number], [id number], [id number] #### [facility] (DEFAULT) [address] [place] [address] 96575 Lactic Acidon 10-11-2020 Lactic Acid 12.4 mg/dL Normal 4.5-19.8 [facility] Comment on above: Performed By: #### 2 [id number] ####[facility] (DEFAULT)[address] [place] [address] 49717 Test Urine 1on U Preg Negative [facility] Comment on above: Performed By: #### 3 [id number] ####[facility] (DEFAULT)[address] [place] [address] 98130 U Preg Internal Control Pass [facility] Comment on above: Performed By: #### 3 [id number] ####[facility] (DEFAULT)[address] [place] [address] 76092 UA Dvsgr8ta 10-11-[address] [facility] Comment on above: Performed By: #### 2 [id number], [id number] ####[facility] (DEFAULT)[address] [place] [address] 20730 UA RBC 0-2 Normal [facility] Comment on above: Performed By: #### 2 [id number], [id number] ####[facility] (DEFAULT)[address] [place] [address] 61151 UA Squam Epi Few Normal [facility] Comment on above: Performed By: #### 2 [id number], [id number] ####[facility] (DEFAULT)[address] [place] [address] 80026 UA WBC 0-2 Normal [facility] Comment on above: Performed By: #### 2 [id number], [id number] ####[facility] (DEFAULT)[address] [place] [address] 05930 UA w Micro, if Ind Standardo n 10-11-2020 Micro? Indicated Normal [facility] Comment on above: Performed By: #### 2 [id number], [id number] ####[facility] (DEFAULT)[address] [place] [address] 15904 Breakpoint UA Normal [facility] Comment on above: Performed By: #### 2 [id number], [id number] ####[facility] (DEFAULT)[address] [place] [address] 97258 Color (U) Yellow Normal [facility] Comment on above: Performed By: #### 2 [id number], [id number] ####[facility] (DEFAULT)[address] [place] [address] 58808 Glucose (U) [Mass/Vol] Negative Normal [facility] Comment on above: Performed By: #### 2 [id number], [id number] ####[facility] (DEFAULT)[address] [place] [address] 83743 Ketones Ql (U) Negative Normal [facility] Comment on above: Performed By: #### 2 [id number], [id number] ####[facility] (DEFAULT)[address] [place] [address] 72506 UA Bilirubin Negative Normal [facility] Comment on above: Performed By: #### 2 [id number], [id number] ####[facility] (DEFAULT)[address] [place] [address] 87462 UA Blood TRACE Abnormal NEGATIVE [facility] Comment on above: Performed By: #### 2 [id number], [id number] ####[facility] (DEFAULT)[address] [place] [address] 17144 UA Clarity CLEAR Normal CLEAR [facility] Comment on above: Performed By: #### 2 [id number], [id number] ####[facility] (DEFAULT)[address] [place] [address] 28351 UA Leuk Est Negative Normal NEGATIVE [facility] Comment on above: Performed By: #### 2 [id number], [id number] ####[facility] (DEFAULT)[address] [place] [address] 47602 UA Nitrite Negative Normal NEGATIVE [facility] Comment on above: Performed By: #### 2 [id number], [id number] ####[facility] (DEFAULT)[address] [place] [address] 05856 UA pH 6.0 Normal 5-8 [facility] Comment on above: Performed By: #### 2 [id number], [id number] ####[facility] (DEFAULT)[address] [place] [address] UA Protein Negative Normal NEGATIVE [facility] Comment on above: Performed By: #### 2 [id number], [id number] ####[facility] (DEFAULT)[address] [place] [address] 66655 UA Spec Grav 1.025 Normal 1.001-1.035 [facility] Comment on above: Performed By: #### 2 [id number], [id number] ####[facility] (DEFAULT)[address] [place] [address] 17621 UA Urobilinogen 0.2 mg/dL Normal 0.2-1.0 [facility] Comment on above: Performed By: #### 2 [id number], [id number] ####[facility] (DEFAULT)[address] [place] [address] Urine Source Clean Catch Normal [facility] Comment on above: Performed By: #### 2 [id number], [id number] ####[facility] (DEFAULT)[address] [place] [address] 04214 US Pelvis Non-OB Completeon 06-21-2021 US Pelvis [...] Dominguez MD 10/11/20 12:29 p Technologist: NATASHA [facility] US Transvaginalon 10-11-2020 US Transvaginal US [...] Dominguez MD 10/11/20 12:29 p Technologist: NATASHA [facility] Video Visit - Telehealtho n 01-28-2020 Video Visit - Telehealth Chief Complaint Medication follow up via [employer] video Subjective Interval History/HPI This visit was conducted via two-way, real-time interactive video communications from my office using [employer] due to the restrictions of the COVID-19 pandemic. No physical exam was conducted other than those areas of the body visible to telecommunications with the patient located at [address] [place] [address], with no one else in attendance. If [...] day(s), # 42 tab(s), Refills(s) 5, Pharmacy: [facility]/pharmacy #[id number], 156, cm, 01/28/20 8:32:00 EDT, Height/Length Dosing, 124, kg, 01/28/20 8:32:00 EDT, Weight Dosing 3. 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) Orders: lamotrigine, 300 mg = 2 tab(s), Oral, Bedtime, # 60 tab(s), Refills(s) 5, Pharmacy: [facility]/pharmacy #[id number], 156, cm, 01/28/20 8:32:00 EDT, Height/Length Dosing, 124, kg, 01/28/20 8:32:00 EDT, Weight Dosing lurasidone, 60 mg = 1 tab(s), Oral, Daily, @supper with food, # 30 tab(s), Refills(s) 5, Pharmacy: [facility]/pharmacy #[id number], 156, cm, 01/28/20 8:32:00 EDT, Height/Length Dosing, 124, kg, 01/28/20 8:32:00 EDT, Weight Dosing metformin, 500 mg = 1 tab(s), Oral, BID, # 60 tab(s), Refills(s) 5, Pharmacy: [facility]/pharmacy #[id number], 156, cm, 01/28/20 8:32:00 EDT, Height/Length [...] Facility 12-17-2023 13:04-0400 Body height 152.4 cm [facility] 12-17-2023 13:04-0400 Body mass index (BMI) [Ratio] 59.5 kg/m2 [facility] 12-17-2023 13:04-0400 Body temperature 97.5 [degF] [facility] 12-17-2023 13:04-0400 Body weight 138.4 kg [facility] 12-17-2023 13:04-0400 Diastolic blood pressure 68 mm[Hg] [facility] 12-17-2023 13:04-0400 Heart rate 92 /min [facility] 12-17-2023 13:04-0400 Respiratory rate 18 /min [facility] 12-17-2023 13:04-0400 SaO2% (BldA) [Mass fraction] 95 % [facility] 12-17-2023 13:04-0400 Systolic blood pressure 125 mm[Hg] [facility] 06-29-2023 11:10-0500 Body height 154.9 cm Lindseykojo Mcmahon SUSTAINABILITY DIRECTOR-VARNISH MAKER Work Phone: [facility] 06-29-2023 11:10-0500 Body mass index (BMI) [Ratio] 56.08 kg/m2 LindseyKoalitydorys SUSTAINABILITY DIRECTOR-VARNISH MAKER Work Phone: [facility] 06-29-2023 11:10-0500 Body weight 134.54 kg Lindsey [employer] SUSTAINABILITY DIRECTOR-VARNISH MAKER Work Phone: [facility] 06-29-2023 11:10-0500 Diastolic blood pressure 84 mm[Hg] Lindsey Kregel SUSTAINABILITY DIRECTOR-VARNISH MAKER Work Phone: [facility] 06-29-2023 11:10-0500 Heart rate 93 /min Lindsey KreeTobb SUSTAINABILITY DIRECTOR-VARNISH MAKER Work Phone: [facility] 06-29-2023 11:10-0500 SaO2% (BldA) [Mass fraction] 95 % Lindsey Mcmahon SUSTAINABILITY DIRECTOR-VARNISH MAKER Work Phone: [facility] 06-29-2023 11:10-0500 Systolic blood pressure 152 mm[Hg] Lindsey Mcmahon SUSTAINABILITY DIRECTOR-VARNISH MAKER Work Phone: [facility] [employer] 05-03-2023 13:16-0500 Body mass index (BMI) [Ratio] 54.61 kg/m2 Katerin Doradoer SUSTAINABILITY DIRECTOR-VARNISH MAKER [facility] Phone: [facility] 05-03-2023 13:16-0500 Body weight 131.09 kg Katerin Doradoer SUSTAINABILITY DIRECTOR-VARNISH MAKER [facility] Phone[facility] 05-03-2023 13:16-0500 Diastolic blood pressure 74 mm[Hg] Katerin Doradoer SUSTAINABILITY DIRECTOR-VARNISH MAKER Work Phone[facility] 05-03-2023 13:16-0500 Heart rate 88 /min Katerin Doradoer SUSTAINABILITY DIRECTOR-VARNISH MAKER Work Phone: [facility] 05-03-2023 13:16-0500 Respiratory rate 18 /min Katerin Leijachter SUSTAINABILITY DIRECTOR-VARNISH MAKER Work Phone[facility] 05-03-2023 13:16-0500 SaO2% (BldA) [Mass fraction] 98 % Katerin Doradoer SUSTAINABILITY DIRECTOR-VARNISH MAKER Work Phone[facility] 05-03-2023 13:16-0500 Systolic blood pressure 126 mm[Hg] Katerin Doradoer SUSTAINABILITY DIRECTOR-VARNISH MAKER Work Phone: [facility] 02-05-2023 09:45-0400 Body height 154.94 cm Jovita Murcia Other [employer] Other 02-05-2023 09:45-0400 Body mass index (BMI) [Ratio] 57.32 kg/m2 Jovita Murcia Other [employer] Other 02-05-2023 09:45-0400 Body temperature 98 [degF] Jovita Murcia Other [employer] Other 02-05-2023 09:45-0400 Body weight 137.62 kg Jovita Murcia Other [employer] Other 02-05-2023 09:45-0400 Respiratory rate 18 /min Jovita Murcia Other [employer] Other 02-05-2023 09:45-0400 SaO2% (BldA) [Mass fraction] 97 % Jovita Murcia Other [employer] Other 12-22-2022 09:30-0400 Diastolic blood pressure 96 mm[Hg] MD Aline Villalobos Work Phone: [facility] 12-22-2022 09:30-0400 Heart rate 60 /min MD Aline Villalobos Work Phone: [facility] 12-22-2022 09:30-0400 Respiratory rate 16 /min MD Aline Villalobos Work Phone: [facility] 12-22-2022 09:30-0400 SaO2% (BldA) [Mass fraction] 99 % MD Aline Villalobos Work Phone: [facility] 12-22-2022 09:30-0400 Systolic blood pressure 154 mm[Hg] MD Aline Villalobos Work Phone: [facility] 12-22-2022 08:06-0400 Body height 152.4 cm MD Aline Villalobos Work Phone: [facility] 12-22-2022 08:06-0400 Body weight 137.89 kg MD Aline Villalobos Work Phone: [facility] 07-22-2022 11:35-0400 Respiratory rate 18 /min Inge Leung DO Work Phone: [employer] 07-22-2022 08:00-0400 Body temperature 99 [degF] Inge Leung DO Work Phone: [employer] 07-22-2022 08:00-0400 Diastolic blood pressure 63 mm[Hg] Inge Leung DO Work Phone: [employer] 07-22-2022 08:00-0400 Heart rate 78 /min Inge Leung DO Work Phone: [employer] 07-22-2022 08:00-0400 SaO2% (BldA) [Mass fraction] 99 % Inge Leung DO Work Phone: [employer] 07-22-2022 08:00-0400 Systolic blood pressure 137 mm[Hg] Inge Leung DO Work Phone: [employer] 07-18-2022 17:35-0400 Body height 154.94 cm Alesha Cortez Other [employer] Other 07-18-2022 17:35-0400 Body mass index (BMI) [Ratio] 62.16 kg/m2 Alesha Cortez Other [employer] Other 07-18-2022 17:35-0400 Body temperature 96 [degF] Alesha Cortez Other [employer] Other 07-18-2022 17:35-0400 Body weight 149.23 kg Alesha Cortez Other [employer] Other 07-18-2022 17:35-0400 Respiratory rate 18 /min Alesha Cortez Other [employer] Other 07-18-2022 17:35-0400 SaO2% (BldA) [Mass fraction] 97 % Alesha Cortez Other [employer] Other 07-15-2022 17:16-0400 Diastolic blood pressure 83 mm[Hg] Inge Piazza DO Work Phone: [employer] 07-15-2022 17:16-0400 Heart rate 97 /min Inge Piazza DO Work Phone: [employer] 07-15-2022 17:16-0400 Respiratory rate 16 /min Inge Padillaazza DO Work Phone: [employer] 07-15-2022 17:16-0400 Systolic blood pressure 142 mm[Hg] Inge Piazza DO Work Phone: [employer] 07-15-2022 15:44-0400 Body temperature 98.49 [degF] Inge Piazza DO Work Phone: [employer] 03-21-2022 10:30-0500 Body height 154.94 cm [place] Other [employer] Other 03-08-2022 02:06-0500 Body weight 141.0696 kg LILIA RUIZ [facility] Comment on above: Performed By: #### DAPHNE TOBIAS #### [facility] [address] [place] [address] Dr. Valeria Farris Encounters Encounter Date Encounter Type Care Provider Facility Start: 01-15-2024 End: 01-15-2024 ambulatory CLAUDIA DUFF [facility] Start: 01-15-2024 End: 01-15-2024 ambulatory NOAH NICHOLAS Not Available Start: 01-03-2024 End: 01-03-2024 ambulatory NOAH NICHOLAS Not Available Start: 12-31-2023 End: 12-31-2023 ambulatory CLAUDIA E JIAN [facility] Start: 12-29-2023 End: 12-29-2023 Emergency department patient visit CHAS BALDERAS [facility] Start: 12-17-2023 End: 12-17-[address] [facility] Work Phone: Start: 12-17-2023 End: 12-17-2023 Patient encounter procedure [facility] Work Phone: Start: 12-17-2023 End: 12-17-2023 ambulatory NOAH NICHOLAS Not Available Start: 12-06-2023 End: 12-06-2023 ambulatory [facility] Start: 11-29-2023 End: 11-29-2023 ambulatory NOAH NICHOLAS Not Available Start: 11-12-2023 End: 11-12-2023 ambulatory CHARMAINE MARIKA Not Available Start: 11-08-2023 End: 11-08-2023 ambulatory [facility] Start: 10-29-2023 End: 10-29-2023 ambulatory NOAH NICHOLAS Not Available Start: 10-11-2023 End: 10-11-2023 ambulatory NOAH NICHOLAS Not Available Start: 10-09-2023 End: 10-09-2023 ambulatory [facility] Start: 09-11-2023 End: 09-11-2023 ambulatory NOAH NICHOLAS Not Available Start: 09-10-2023 End: 09-11-2023 Emergency department patient visit MANUEL HERBERT [facility] Start: 08-28-2023 End: 08-28-2023 Emergency department patient visit CHAS SHERRIE [facility] Start: 08-24-2023 End: 08-24-2023 ambulatory CHAS JANNIEYAZMIN Not Available Start: 08-14-2023 End: 08-14-2023 ambulatory NOAH NICHOLAS Not Available Start: 07-19-2023 End: 07-19-2023 ambulatory CHARMAINE MARIKA Not Available Start: 07-02-2023 Telephone encounter Lindsey philip SUSTAINABILITY DIRECTOR-VARNISH MAKER Work Phone: [facility] Comment on above: Sleep Lab (PSG) Start: 06-29-2023 End: 06-29-2023 ambulatory [facility] Start: 06-29-2023 End: 06-29-2023 Office outpatient new 45 minutes [facility] SUSTAINABILITY DIRECTOR-VARNISH MAKER Work Phone: [facility] Comment on above: MOLINA (obstructive sle ep apnea) (Primary Dx); Morning headache; Memory loss; Fatigue, unspecified type; Snoring Start: 06-24-2023 Refill Katerin grewal SUSTAINABILITY DIRECTOR-VARNISH MAKER Work Phone: [facility] Start: 06-14-2023 End: 06-14-2023 ambulatory RAZIA MULLER [facility] Start: 06-06-2023 Refill Katerin grewal SUSTAINABILITY DIRECTOR-VARNISH MAKER Work Phone: [facility] Start: 06-05-2023 Orders Only Sadaf Louis [facility] Comment on above: Low back pain, unspe cified back pain laterality, unspecified chronicity, unspecified whether sciatica present (Primary Dx) Start: 05-29-2023 Telephone encounter Orders Sup port User Transcribe [facility] Comment on above: Sleep Lab Start: 05-22-2023 End: 05-22-2023 ambulatory CHAS BALDERAS Not Available Start: 05-16-2023 End: 05-17-2023 Emergency department patient visit LINA HUGHES [facility] Start: 05-15-2023 End: 05-15-2023 ambulatory NOAH PETERSON Not Available Start: 05-03-2023 End: 05-03-2023 ambulatory [facility] Start: 05-03-2023 End: 05-03-2023 Office outpatient visit 15 minutes Katerin Haynes SUSTAINABILITY DIRECTOR-VARNISH MAKER Work Phone: [facility] Comment on above: Acute non-recurrent maxillary sinusitis (Primary Dx) Start: 04-19-2023 End: 04-19-2023 ambulatory CHARMAINE HAIRSTON Not Available Start: 02-05-2023 End: 02-05-2023 ambulatory Jovita Murcia Other [employer] Other Start: 02-05-2023 Office outpatient vi sit 15 minutes Jovita Murcia [facility] Start: 12-22-2022 End: 12-22-2022 ambulatory Aline Villalobos Facility:[facility] Start: 12-22-2022 End: 12-22-2022 ambulatory MD Aline Villalobos Work Phone: [facility] Work Phone: Start: 12-22-2022 End: 12-22-2022 Patient encounter procedure MD Aline Villalobos Work Phone: [facility] [place] Work Phone: Start: 12-20-2022 End: 12-20-2022 ambulatory Aline Villalobos Facility:[facility] Start: 12-20-2022 End: 12-20-2022 ambulatory MD Aline Villalobos Work Phone: [facility] Work Phone: Start: 12-20-2022 End: 12-20-2022 Patient encounter procedure MD Aline Villalobos Work Phone: [facility] [place] Work Phone: Start: 09-04-2022 ambulatory RAYSA LINN [...] 07-18-2022 End: 07-18-2022 ambulatory Alesha Cortez Other [employer] Other Start: 07-18-2022 Office outpatient vi sit [...] 03-21-2022 End: 03-21-2022 ambulatory [place] Other [employer] Other Start: 03-21-2022 Office outpatient ne w 30 minutes [place] [facility] Start: 03-19-2022 End: 03-19-2022 ambulatory LILIA RUIZ Facility:[facility] Start: 03-15-2022 End: 03-16-[address] NOAH PETERSON Facility:[facility] Start: 03-03-2022 End: 03-04-[address] NOAH PETERSON Facility:[facility] Start: 02-27-2022 Blood pressure taking Jovita [place] Other [employer] Other Start: 01-09-2022 End: 01-10-[address] [...] abnormal cervical Papanicolaou smear Jovita Murcia Other [employer] Other Start: 01-30-2018 End: 01-31-2018 Patient encounter DEFAULT PHYSICIAN Facility:[facility] Procedures Date Procedure Procedure Detail Performing Clinician Start: 12-22-2022 Investigation of transfusion reaction MD Aline Villalobos Work Phone: Start: 07-22-2022 Glucose blood reagent strip Hitesh A Hastings DO Work Phone: Start: 07-21-2022 Glucose blood reagent strip Hitesh A Hastings DO Work Phone: Start: 07-21-2022 Glucose blood reagent strip Hitesh A Jewel DO Work Phone: Start: 07-21-2022 Glucose blood reagent strip Hitesh A Jewel DO Work Phone: Start: 07-21-2022 Blood count complete auto&auto difrntl wbc Nash E Eleazar DO Work Phone: Start: 07-20-2022 Glucose blood reagent strip Hitesh A Hastings DO Work Phone: Start: 07-20-2022 Cul prsmptv [...] in Cervix by Cyto stain Katerin Haynes APRN-[employer]ARNISH [employer]KER Work Phone: Start: 12-28-2021 Diabetes mellitus screening Jovita Murcia Other Start: 11-30-2021 Adult depression scr eening assessment Katerin Haynes APRN-[employer] Work Phone: End: 04-13-2021 screening Jovita Murcia Other End: 07-27-2021 screening Jovita Murcia Other Counseling Jovita Murcia Other Depression screening Jovita Murcia Other visit Jovita Hardeep nicolas Other Plan of Treatment Date Care Activity Detail Author Start: 12-21-2029 DTaP,Tdap and Td Vaccines (7 - Td or Tdap) DTaP,Tdap and Td Vaccines (7 - Td or Tdap) [facility] Start: 12-21-2029 DTaP/Tdap/Td vaccine (7 - Td or Tdap) DTaP/Tdap/Td vaccine (7 - Td or Tdap) [facility] Start: 05-29-2025 Screening for malign ant neoplasm of cervix Pap Smear [facility] Start: 06-28-2024 Adult BMI Screening Adult BMI Screen ing [facility] Start: 06-28-2024 Tobacco Screening Tobacco Screening [facility] Start: 06-13-2024 Adult BMI Screening Adult BMI Screen ing [facility] Start: 05-16-2024 Adult BMI Screening Adult BMI Screen ing [facility] Start: 05-16-2024 Tobacco Screening Tobacco Screening [facility] Start: 05-03-2024 Adult BMI Follow Up Plan Adult BMI Follow Up Plan [facility] Start: 05-03-2024 Adult BMI Screening Adult BMI Screen ing [facility] Start: 05-03-2024 Tobacco Screening Tobacco Screening [facility] Start: 03-12-2024 Adult BMI Follow Up Plan Adult BMI Follow Up Plan [facility] Start: 01-09-2024 End: 01-09-2024 Patient encounter procedure 01/09/2024 9:00 AM EDT Office Visit [facility] [address] [place] [address] Lindsey Mcmahon, SUSTAINABILITY DIRECTOR-[employer]ARNISH [employer]KER [address] [address] [facility] Start: 10-23-2023 End: 10-23-2023 Clinical Support 10/23/2023 8:00 PM EDT Clinical Support [facility] [address] [place] [place] [address] [facility] Start: 07-11-2023 End: 07-11-2023 Patient encounter procedure 07/11/2023 10:00 AM EDT Office Visit [facility] [address] [place] [address] Lindsey Mcmahon, SUSTAINABILITY DIRECTOR-[employer]ARNISH MAKER [address] [address] [facility] Start: 06-25-2023 End: 06-25-2023 Patient encounter procedure 06/25/2023 10:30 AM EST Office Visit [facility] [address] [place] [address] Terese Valladares SUSTAINABILITY DIRECTOR-VARNISH MAKER [address] [address] [facility] Start: 06-14-2023 End: 06-14-2023 Patient encounter procedure 06/14/2023 8:15 AM EST Appointment [facility] [address] [place] [address] [facility] Start: 06-05-2023 End: [...] Office Visit [facility] [address] [place] [phone] Katerin Haynes, SUSTAINABILITY DIRECTOR-[employer]ARNISH MAKER [address] [place], [place] [id number] [facility] Start: 05-28-2023 End: 05-28-2023 Patient encounter procedure 05/28/2023 9:30 AM EST Office Visit [facility] [address] [place] [phone] Terese Valladares, SUSTAINABILITY DIRECTOR-VARNISH MAKER [address] [address] [facility] Start: 05-18-2023 Hemoglobin A1c measurement A1C test (Diabetic or Prediabetic) [facility] Start: 12-22-2022 COVID-19 Vaccine ( season) COVID-19 Vaccine ( season) [facility] Start: 12-22-2022 Influenza vaccination Influenza Vacc ine [facility] Start: 12-22-2022 Cerebrospinal fluid culture [facility] Start: 12-22-2022 End: 12-22-2022 [facility] Start: 11-30-2022 Depression Screening Depression Scre ening [facility] Start: 11-21-2022 Influenza vaccination Flu vacc ine (Season Ended) [facility] Start: 07-20-2022 End: 07-20-2022 Patient encounter procedure 07/20/2022 Routine Perinatology [facility] Start: 07-13-2022 End: 07-13-2022 Patient encounter procedure 07/13/2022 Routine Perinatology [facility] Start: 07-06-2022 End: 07-06-2022 Patient encounter procedure 07/06/2022 Routine Perinatology [facility] Start: 02-05-2022 Screening for malign ant neoplasm of cervix [facility] [employer] Start: 11-21-2021 Influenza vaccination Flu vaccine (# 1) [facility] Start: 01-21-2021 COVID-19 Vaccine (2 - Booster for Hipolito series) COVID-19 Vaccine (2 - Booster for Hipolito series) [facility] [employer] Start: 02-05-2013 Screening for malign ant neoplasm of cervix Pap smear [facility] Start: 02-05-2010 Hepatitis C screening Hepatitis C sc reen [facility] [employer] Start: 02-05-2007 HIV screening [facility] Start: 2004 Depression Screen Depression Screen [facility] [employer] Start: 02-05-2002 Lipid panel Lipids [facility] [employer] Start: 02-05-1998 Pneumococcal 0-64 ye ars Vaccine (1 - PCV) Pneumococcal 0-64 years Vaccine (1 - PCV) [facility] Start: 02-05-1993 Varicella vaccine (1 of 2 - 2-dose childhood series) Varicella vaccine (1 of 2 - 2-dose childhood series) [facility] Bacteria identified in Unspecified specimen by Aerobe culture [facility] Bacteria identified in Unspecified specimen by Anaerobe culture [facility] End: 07-15-2022 COVID-19, Rapid COVID-19, Rapid Microbiology STAT One Time for 1 Occurrences starting 07/15/2022 until 07/15/2022 [facility]: Comment on above: One Time for 1 Occur rences starting 07/15/2022 until 07/15/2022 CT CHEST PULMONARY EMBOLISM W CONTRAST CT CHEST PULMONARY EMBOLISM W CONTRAST Imaging STAT 07/15/2022 5:48 PM EDT [facility] [employer] Phone: Culture, Strep B Scr een, Vaginal/Rectal Culture, Strep B Screen, Vaginal/Rectal Microbiology [employer] Label Print 07/20/2022 6:56 PM EDT [employer] Phone: EKG 12 Lead EKG 12 Lead ECG Routine 07/15/2022 4:23 AM EDT [employer] Phone: Glucose [Mass/volume ] in Serum or Plasma POCT glucose Point of Care Testing Routine 4X Daily (AC & HS) until discontinued starting 07/20/2022 [employer] Phone: Comment on above: 4X Daily (AC & HS) u ntil discontinued starting 07/20/2022 End: 07-15-2022 Hepatitis C Antibody [employer] Phone: Comment on above: One Time for 1 Occur rences starting 07/15/2022 until 07/15/2022 Meningitis+Encephali tis pathogens DNA and RNA panel - Cerebral spinal fluid by SARANYA with non-probe detection [facility] Microscopic observat ion [Identifier] in Unspecified specimen by Gram stain [facility] Nonrebreather mask oxygen Nonrebreather mask oxygen Respiratory Care Routine As directed - RT (PRN) until discontinued starting 07/15/2022 [employer] Phone: Comment on above: As directed - RT (NH N) until discontinued starting 07/15/2022 Oxygen therapy [[facility] Data Set] Initiate Oxygen Therapy Protocol Respiratory Care Routine Daily until discontinued starting 07/20/2022 [employer] Work Phone: Comment on above: Daily until disconti nued starting 07/20/2022 Patient Education [facility] Lumb ar Puncture Discharge Instructions [facility] Work Phone: PROFILE I PROF ILE I Lab [employer] Label Print 07/15/2022 4:12 PM EDT [employer] Phone: End: 06-28-2024 PSG Diagnostic [facility] Routine MOLINA (obstructive sleep apnea) 1 Occurrences starting 06/29/2023 until 06/28/2024 [facility] Work Phone: Comment on above: 1 Occurrences starti ng 06/29/2023 until 06/28/2024 End: 07-15-2022 RAPID INFLUENZA A/B ANTIGENS RAPID INFLUENZA A/B ANTIGENS Microbiology STAT One Time for 1 Occurrences starting 07/15/2022 until 07/15/2022 [employer] Phone: Comment on above: One Time for 1 Occur rences starting 07/15/2022 until 07/15/2022 End: 07-20-2022 Specimen hold [employer] Work Phone: Comment on above: Once for 1 Occurrenc es starting 07/20/2022 until 07/20/2022 End: 07-20-2022 Specimen to Pathology Specimen to Pathology Lab Routine One Time for 1 Occurrences starting 07/20/2022 until 07/20/2022 [employer] Phone: Comment on above: One Time for 1 Occur rences starting 07/20/2022 until 07/20/2022 Spirometry panel Incentive linda metry Respiratory Care Routine Every 2hr while awake until discontinued starting 07/20/2022 [employer] Phone: Comment on above: Every 2hr while awak e until discontinued starting 07/20/2022 End: 07-15-2022 Troponin I.cardiac [Mass/volume] in Serum or Plasma Troponin Lab STAT One Time for 1 Occurrences starting 07/15/2022 until 07/15/2022 [employer] Work Phone: Comment on above: One Time for 1 Occur rences starting 07/15/2022 until 07/15/2022 Immunizations Immunization Date Immunization Notes Care Provider Radha bowen 04-21-2014 influenza virus vaccine, unspecified formulation Katerin ALEXIS Work Phone: [employer] NEGATED: Highlighted row has not occurred!07-22-2022 tetanus toxoid, reduced diphtheria toxoid, and acellular pertussis vaccine, adsorbed Inge Mojicaza DO Work Phone: [facility] Payers Date Payer Category Payer Unknown 2022 Unknown [id number] 2022 Medicaid [id number] 2022 Medicaid [place] [id number] 2022-Present [address] [place] [address] 1.2.840.830904.1.13.424.2. 7.3.810708.315 1992 Unknown [id number] 2.16.840.1.006669.3.579.2. 647 1992 Unknown [id number] 2.16.840.1.968988.3.579.2. 593 1992 Unknown [id number] 2.16.840.1.494257.3.579.2. 593 1992 Unknown [id number] 2.16.840.1.249128.3.579.2. 593 1992 Unknown [id number] 2.16.840.1.543234.3.579.2. 593 1992 Unknown [id number] 2.16.840.1.404634.3.579.2. 593 1992 Unknown [id number] 2.16.840.1.695120.3.579.2. 593 1992 Unknown [id number] 2.16.840.1.980002.3.579.2. 593 1992 Unknown [id number] 2.16.840.1.449629.3.579.2. 593 1992 Unknown [id number] 2.16.840.1.420664.3.579.2. 593 1992 Unknown [id number] 2.16.840.1.482346.3.579.2. 593 1992 Unknown [id number] 2.16.840.1.449285.3.579.2. 593 1992 Unknown [id number] 2.16.840.1.055557.3.579.2. 593 1992 Unknown [id number] 2.16.840.1.841303.3.579.2. 593 1992 Unknown [id number] 2.16.840.1.176209.3.579.2. 593 1992 Unknown [id number] 2.16.840.1.651575.3.579.2. 593 1992 Unknown [id number] 2.16.840.1.121366.3.579.2. 593 1992 Unknown [id number] 2.16.840.1.152405.3.579.2. 593 1992 Unknown [id number] 2.16.840.1.776061.3.579.2. 593 1992 Unknown [id number] 2.16.840.1.184677.3.579.2. 593 1992 Unknown [id number] 2.16.840.1.102914.3.579.2. 593 1992 Unknown [id number] 2.16.840.1.484617.3.579.2. 593 1992 Unknown [id number] 2.16.840.1.950992.3.579.2. 593 1992 Unknown [id number] 2.16.840.1.785593.3.579.2. 593 1992 Unknown [id number] 2.16.840.1.108769.3.579.2. 593 1992 Unknown [id number] 2.16.840.1.491363.3.579.2. 593 1992 Unknown [id number] 2.16.840.1.710856.3.579.2. 593 1992 Unknown [id number] 2.16.840.1.943009.3.579.2. 593 1992 Unknown [id number] 2.16.840.1.878813.3.579.2. 593 1992 Unknown [id number] 2.16.840.1.226909.3.579.2. 593 1992 Unknown [id number] 2.16.840.1.668251.3.579.2. 593 1992 Unknown [id number] 2.16.840.1.213978.3.579.2. 593 1992 Unknown [id number] 2.16.840.1.925292.3.579.2. 593 1992 Unknown [id number] 2.16.840.1.545379.3.579.2. 593 1992 Unknown [id number] 2.16.840.1.903586.3.579.2. 593 1992 Unknown [id number] 2.16.840.1.590101.3.579.2. 593 1992 Unknown [id number] 2.16.840.1.833545.3.579.2. 593 1992 Unknown [id number] 2.16.840.1.504372.3.579.2. 593 1992 Unknown [id number] 2.16.840.1.404039.3.579.2. 593 1992 Unknown [id number] 2.16.840.1.402103.3.579.2. 593 1992 Unknown [id number] 2.16.840.1.717958.3.579.2. 593 1992 Unknown [id number] 2.16.840.1.356656.3.579.2. 1286 1992 Unknown [id number] 2.16.840.1.877600.3.579.2. 1286 1992 Unknown [id number] 2.16.840.1.126964.3.579.2. 175 1992 Unknown [id number] 2.16.840.1.685635.3.579.2. 175 1992 Unknown [id number] 2.16.840.1.806020.3.579.2. 175 1992 Unknown [id number] 2.16.840.1.433689.3.579.2. 175 1992 Unknown [id number] 2.16.840.1.776126.3.579.2. 1259 1992 Unknown [id number] 2.16.840.1.397188.3.579.2. 9 1992 Unknown [id number] 2.16.840.1.533766.3.579.2. 9 1992 Unknown [id number] 2.16.840.1.759005.3.579.2. 1259 1992 Unknown [id number] 2.16.840.1.281818.3.579.2. 1259 1992 Unknown [id number] 2.16.840.1.506815.3.579.2. 9 1992 Unknown [id number] 2.16.840.1.911824.3.579.2. 9 1992 Unknown [id number] 2.16.840.1.190906.3.579.2. 1259 1992 Unknown [id number] 2.16.840.1.475725.3.579.2. 1259 1992 Unknown [id number] 2.16.840.1.524991.3.579.2. 9 1992 Unknown [id number] 2.16.840.1.572996.3.579.2. 1259 1992 Unknown [id number] 2.16.840.1.161932.3.579.2. 1259 1992 Unknown [id number] 2.16.840.1.001210.3.579.2. 1259 1992 Unknown [id number] 2.16.840.1.858412.3.579.2. 1259 1992 Unknown [id number] 2.16.840.1.835949.3.579.2. 1286 1992 Unknown [id number] 2.16.840.1.727241.3.579.2. 1286 1992 Unknown [id number] 2.16.840.1.828660.3.579.2. 1286 1992 Unknown [id number] 2.16.840.1.256405.3.579.2. 6 1992 Unknown [id number] 2.16.840.1.948723.3.579.2. 1286 1992 Unknown [id number] 2.16.840.1.284467.3.579.2. 1286 1992 Unknown [id number] 2.16.840.1.463783.3.579.2. 1286 1992 Unknown [id number] 2.16.840.1.992242.3.579.2. 1286 1959 Medicaid [id number] 1.2.840.473820.1.13.239.2. 7.3.469941.315 1959 Private Health Insurance [id number] 1.2.840.427570.1.13.239.2. 7.3.695012.315 1959 Self-pay 1959 Unknown [id number] 1959 Worker's Compensation [id number] 2.16.840.1.727372.19 Medicaid Elliott Advantage [id number] [facility] [id number] Private Health Insurance [id number] 2.16.840.1.245919.19 Private Health Insurance [facility] [id number] Unknown [id number] 2.16.840.1.946788.19 Unknown [id number] 2.16.840.1.708878.3.579.2. 593 Unknown [id number] 2.16.840.1.091727.3.579.2. 531 Unknown [id number] 2.16.840.1.698302.3.579.2. 531 Social History Date Type Detail Facility Unknown if ever smoked [employer] Other Start: 06-03-2020 End: 05-03-2023 Sex Assigned At [employer] Other Start: 06-22-2022 End: 06-29-2023 Tobacco smoking status NHIS Ex-smoker [employer] Start: 05-25-2020 End: 12-22-2022 History of tobacco use Current smoker [employer] Phone: End: 11-20-2017 History of tobacco use Cigarette Smoker [employer] Phone: Start: 06-22-2022 End: 06-29-2023 Tobacco use and exposure Smokeless tobacco non-user [employer] Phone: Start: 06-29-2022 End: 06-29-2023 Alcohol intake Ex-drinker (finding) [employer] Phone: Start: 06-22-2022 Tobacco Comment Quit in 2019 06/22/2022 [employer] Phone: Start: 11-20-2021 [employer] Phone: Start: 1990 Sex Assigned At Female [employer] Start: 07-10-2022 End: 07-20-2022 Exposure to SARS-CoV-2 (event) Not sure [employer] Phone: Start: 06-03-2020 End: 11-16-2022 Cigarettes smoked current (pack per day) - Reported 0.5 [facility] Adolescent depressio n screening assessment 2 [facility] Start: 11-30-2021 Education 17 [facility] Start: 11-16-2022 Tobacco Comment quit in July [facility] Start: 05-16-2022 Gender identity Identifies as female gender (finding) [facility] Start: 05-25-2022 Sexual orientation Heterosexual (finding) [facility] Medical Equipment Procedure Code Equipment Code Equipment Origin al Text Equipment Identifier Dates BD ULTRA-FINE PE N NEEDLES 29G X 12.7MM MISC [id number] Start: 04-03-2022 ONETOUCH ULTRA strip [id number] Star t: 06-11-2022 DROPLET PEN NEED LES 29G X 12MM MISC [id number] Start: 06-30-2022 Clinical Notes 01-28-2020 to 07-02-2023 [...] in supine position. documented in this encounter [facility] 07-02-2023 Telephone encount er Note 3 order received Scheduled [facility] at [facility] on 10[facility]23[facility]23 Mychart confirmation [place] [employer] PSG order & 3/6 Salome notes in Epic With TCO2 monitoring. Please obtain baseline in supine position. [facility] 06-29-2023 History of Presen t illness [...] you wake up? 6-8 AM Number of avnlti-zi-umm-night awakenings per night? 3-4 Cause of awakenings [...] to stop the activity if sleepiness occurs (picker/puller at the next safe opportunity if driving). [...] [facility] Office: [phone] 11:18 AM on 06/29/2023 This note is dictated with the use of M*Modal.Please note that this dictation was completed with computer voice recognition software. Quite often unanticipated grammatical, syntax, homophones, and other interpretive errors are inadvertently transcribed by the computer software. Please disregard these errors. Please excuse any errors that have escaped final proofreading. VANESA Mendez 06/29/23 1125 documented in this encounter [facility] 06-29-2023 Instructions VANESA Mendez - 06/29/2023 11:00 AM EST If you re looking for general health and wellness resources, please visit [email or web address]. documented in this encounter [facility] 06-29-2023 Evaluation note Diagnosis MOLINA (obstructive sleep apnea)- Primary Obstructive sleep apnea (adult) (pediatric) Morning headache Memory loss Fatigue, unspecified type Snoring Other dyspnea and respiratory abnormality documented in this encounter [facility]2024 Miscellaneous Notes* Telephone Encounter - Ernestina Simpson - 05/29/2023 10:23 AM EST Pt called to schedule a sleep study or appointment with collin Dawn advised we have nothing as of now and either order is in her chart to schedule with gave her the number to sleep medicine in [place] [facility] Note* Telephone Encounter - Ernestina Simpson - 05/29/2023 10:23 AM EST Pt called to schedule a sleep study or appointment with collin Dawn advised we have nothing as of now and either order is in her chart to schedule with gave her the number to sleep medicine in [place] [facility]01-11-2024 History of Present illness Narrative* VANESA Frank - 05/03/2023 1:15 PM EST Images from the original note were not included. [id number] [facility] [address] SUBJECTIVE: Patient ID: Yani Stevens is a [...] VANESA Frank 05/03/23 1330 [facility] Evaluation note* Encounter Date Diagnosis Assessment [...] not specified, unspecified location (ICD-10 - J01.90) [employer] Other 04-01-2023 History of Present illness Narrative* [...] patient Attending Physician: Dr. Fish Estrada MD [employer] Res[employer] 07/22/2022, 12:40 AM Attending Physician Statement [...] patient Attending Physician: Dr. Betina Bush, DO [employer] Res[employer] 07/21/2022, 3:02 AM Attending Physician Statement [...] 07/21/2022 10:00 AM [facility] Phone: 1(322) 842-485903-30-2023 Evaluation note* Diagnosis RLTCS w/ IUD 07/20/22 [...] affecting documented in this encounter [facility] [employer] Work Phone: 1(900) 531-750203-28-2023 Evaluation note* Encounter Date Diagnosis Assessment Notes [...] other viral communicable diseases (ICD-10 - Z20.828) [employer] Other 11-29-2022 Evaluation note* Encounter Date Diagnosis [...] off of work. We will apply for [facility] approval for therapy. [employer] Other 06-21-2021 NoteEducation Materials Obstetrics and Gynecology [...] Follow these instructions at home: ? Take itdp-itz-cvbkljn and prescription medicines only as told by [...] menstrual period is much (more content not included)...[facility] 01-28-2020 NoteOphthalmology Basics of Medication [...] caregiver questions about your prescriptions and any qfpp-sfy-xmdxzrk medications, vitamins, herbal or dietary supplements that [...] your caregiver or pharm (more content not included)...[facility] Chief complaint+Reason for visit Narrative* Chief Complaint Congestion, fever Reason for Visit Contact with and (grimm spected) exposure to covid-19 [facility] Work Phone: Evaluation note* Diagnosis [...] condition or complication documented in this encounter [facility] [employer] [facility] Work Phone: evaluation noteNo assessment information available [facility] Work Phone: Evaluation note* Diagnosis Acute non-recurrent maxillary sinusitis- Primary documented in this encounter [facility] SystemEvaluation note* Diagnosis Low back pain, unspecified back pain laterality, unspecified chronicity, unspecified whether sciatica present- Primary documented in this encounter [facility] System[facility] note* Diagnosis Onset Date Resolution Status Contact with and (suspected) exposure to covid-19 noneactive [facility] Work Phone: History general Narrative - Reported* Type Description Date Medical History Depression Medical History Bipolar disorder Medical History Hypertension Medical History Hypothyroidism Surgical History cholecystectomy Surgical History wisdom teeth extract Surgical History lipoma removed Surgical History left knee scope x 2 Surgical History hemorrhoidectomy Hospitalization History see above surgical histo ry [facility] [employer] Other Hospital Discharge instructions* Attachments The following attachments cannot be sent through Care Everywhere. * Section: Post-op (Rwandan) * Preeclampsia: : General Info (Rwandan) * Depression: ([place]) documented in this encounterBON CoachMePlus Work Phone: Instructions* Attachments The following attachments cannot be sent through Care Everywhere. * Sinusitis in adults ([place]wandan) documented in this encounterProMoneysoft SystemInstructionsNot on file documented in this encounterProMoneysoft SystemInstructionsNot on file documented in this encounterProMedica Health SystemInstructionsNot on file documented in this encounterProSelect [facility] SystemInstructionsNot on file documented in this encounterProSelect [facility] System Summary Purpose Family History No Family [...] sleep apnea) Procedures PSG Diagnostic Lindsey Mcmahon, SUSTAINABILITY DIRECTOR-VARNISH MAKER [address] [facility], [address] [place] [id number] Referral ID Status Reason Start Date Expiration Date V isits Requested Visits Authorized [id number] Pending Review 06/29/2023 06/28/2024 1 1 Additional Source Comments INFORMATION SOURCE (unrecogn ized section and content) DATE CREATED AUTHOR 02/27/2018 [facility] DATE CREATED AUTHOR AUTHOR'S ORGANIZ ATION 09/15/2020 [facility] DATE CREATED AUTHOR AUTHOR'S ORGANIZ ATION 10/17/2020 [facility] DATE CREATED AUTHOR AUTHOR'S ORGANIZ ATION 08/25/2022 [facility] DATE CREATED AUTHOR AUTHOR'S ORGANIZ ATION 01/01/2023 [facility] DATE CREATED AUTHOR AUTHOR'S ORGANIZ ATION 06/30/2023 [facility] DATE CREATED AUTHOR AUTHOR'S ORGANIZ ATION 01/05/2024 [facility] DATE CREATED AUTHOR AUTHOR'S ORGANIZ ATION 01/17/2024 [facility] EPIC DATE CREATED AUTHOR AUTHOR'S ORGANIZ ATION 01/18/2024 [facility] REASON FOR VISIT (unrecogniz ed section and content) Specialty Diagnoses / Procedures Referred By Contac t Referred To Contact Diagnoses 36 weeks gestation of Hitesh Holloway DO [address] [place] [address] [facility] [address] [place] [address] Referral ID Status Reason Start Date Expiration Date Visits Re quested Visits Authorized [id number] 1 1 Reason Comments Nasal Congestion Dizziness Reason Onset Date Comments Sleep Lab 05/29/2023 Reason Comments Med Refill Reason Comments New Patient Sleep ConsultNo prio r sleep studyNot on PAP Specialty Diagnoses / Procedures Referred By Ismael t Referred To Contact Pulmonary Medicine Diagnoses Morning headache Memory loss Razia Muller, SUSTAINABILITY DIRECTOR-VARNISH MAKER [address] [place] [address] [facility] [address] [place] [address] Referral ID Status Reason Start Date Expiration Date Visits Requested Visits Authorized [id number] Pending Review Specialty Services Required 06/12/2023 06/11/2024 [...] (Given - Provider: Stephany Paige APRN - CONSUMER MARKETING ANALYST) citalopram (CELEXA) tablet 20 mg 20 mg, [...] Elisa Mckeon RN)1125 (Given - Provider: Lakesha Loera, VIKTORIA) labetalol (NORMODYNE) tablet 200 mg [...] (NoRateChange - Provider: Stephany Paige APRN - CONSUMER MARKETING ANALYST)182 (Paused - Provider: Agata Pollard, VIKTORIA - [...] December 17, 2023 End: December 17, 2023 Cavalry Officer Relationship Specialty Start Date End Date Chas Balderas MD [address] [place] [address] PCP - General Family Medicine 06/29/23 Cavalry Officer Relationship Specialty Start Date End Date Katerin Haynes APRN-VANIA [address] [place] [address] PCP - General Family Medicine 11/23/22 Team Status: Active Member Role Status Dates Aline Villalobos MD Primary Care Provider Active Team Status: Inactive Member Role Status Dates Aline Villalobos MD Primary Care Provider Active Razia Muller , SUSTAINABILITY DIRECTOR-CHERRY DIPPER-C Attending Provider Active Goals (unrecognized section and [...] BE BASED ON THE PRIMARY CLINICAL RECORDS. [employer] provides no warranty or guarantee of the accuracy or completeness of information in this document.
[2024-01-24 08:08] VITALS: BP 137/74; PULSE 90
== END 2024-01-24 08:43 | disposition home or self-care (01) ==
LOC: FBCO 07:02 → FBC 08:00
PROVIDERS: PCP Family Medicine; Visit Provider Obstetrics & Gynecology
DX: O24.419 Gestational diabetes mellitus in pregnancy, unspecified control (principal); Z3A.35 35 weeks gestation of pregnancy
CPT/HCPCS: 59025

== ENCOUNTER 2024-01-25 18:10 | Observation (INO) | payer BC, MEDICAID, SELFPAY ==
--- OUTSIDE RECORDS SUMMARY | 2024-01-25 18:15 | XMS_ITS | CCD ---
Author Organization [facility] Care Team Providers Care Head Porter Baggage Name Role Phone PHYSICIAN, DEFAULT Unavailable Unavailable [...] CHAS Norman Primary Care Unavailable NICHOLAS, DR AZMORA Attending Unavailable NICHOLAS, DR ZAMORA Admitting Unavailable [...] DR DOUGHERTY Attending Unavailabl e NADERER, DR CAHS Norman Primary Care Unavailable NICHOLAS, DR ZAMORA [...] NADERER, DR CHAS Norman Primary Care Unavailable [place], DR ALINE Henriquez Consulting Unavailable NICHOLAS, DR ZAMORA Consulting Unavailable KARASIK ., DR DOUGHERTY Admitting Unavailabl e KARASIK ., DR DOUGHERTY Consulting Unavailabl e KARASIK ., DR DOUGHERTY Attending Unavailabl e NADERER, DR CHAS Norman Primary Care Unavailable KARASIK ., DR DOUGHERTY Attending Unavailabl e KARASIK ., DR DOUGHERTY Admitting Unavailabl e KARASIK ., DR DOUGHERTY Consulting Unavailabl e FAWMEGAN, [facility] Primary Care Unavailable NICHOLAS, DR ZAMORA [...] Consulting Unavailable JIAN, DAV Attending Unavailable DEREK, [facility] Primary Care Unavailable DAV VILLAR Admitting [...] E Attending Unavailable Jovita Murcia Unavailable Dallas LEWIS-DENIAL MANAGEMENT REPRESENTATIVE, Katerin Primary [facility], [facility] Primary Care Provide r Sherrie TENORIO, Chas Primary Care Provider LINDSEY MCMAHON Attending Unavailable MULLER, RAZIA Referring Unavailable NADEREWendi, CHAS Primary Care Unavailable SCHLUCRECIA, KATERIN Attending Unavailable SCHLACHTCRISSY, KATERIN Referring Unavailable SCHINCHT, KATERIN Primary Care Unavailable PERNI, MATEO C Referring Unavailable NADERER, [facility] Primary Care Unavailabl e PERNI, MATEO C Referring Unavailable NADERER, [facility] Primary Care Unavailabl e PERNI, MATEO C Referring Unavailable NADERER, [facility] Primary Care Unavailbrinda e CLAUDIA VILLAR Admitting Unavailable CLAUDIA VILLAR Attending Unavailable NADERER, [facility] Primary Care UnavailCHARMAINE Torres Attending Unavailable NICHOLAS, NOAH Attending Unavailable NADEREWendi, CHAS Attending Unavailable NICHOLAS, NOAH Attending Unavailable NADERER, CHAS Attending Unavailable NICHOLAS, NOAH Attending Unavailable NICHOLAS, NOAH Attending Unavailable NICHOLAS, NOAH Attending Unavailable MARIKA, CHARMAINE Attending Unavailable NICHOLAS, NOAH Attending Unavailable NICHOLAS, NOAH Attending Unavailable NICHOLAS, NOAH Attending Unavailable NICHOLAS, NOAH Attending Unavailable [facility] CHAS Primary Care Unavailable BONITA COFFMAN Attending Unavailable [facility] CHAS Primary Care Unavailable MANUEL GODINEZ Attending Unavailable HERBERT, MANUEL Attending Unavailable MANUEL GODINEZ Referring Unavailable [facility], CHAS Primary Care Unavailable [facility] CHAS Primary Care Unavailable KANIKA VIDAL Attending Unavailable CLAUDAI DUFF Admitting Unavailable CLAUDIA DUFF Attending Unavailable CHAS BALDERAS Primary Care Unavailable SCHINCHTCRISSY, KATERIN Primary Care Unavailable CLAUDIA SOLARES Attending [...] [MORPHINE] Drug Allergy 09-18-19 18 hivsushma, Rash [employer] Other (16 sources) Codeine; Translations: [CODEINE] Drug Allergy 06-06-19 23 [facility] (13 sources) Penicillins; Translations: [PENICILLINS] Propensity to adverse reactions to drug 02-22-20 16 Anaphylaxis, Shortness Of Breath [facility] - The Simple, Fast and Elegant Tablet Sales App Work Phone: (1 source) Codeine Drug Allergy 07-30-19 22 [facility] (1 source) Morphine Drug Allergy [facility] (1 source) Codeine Drug Allergy 12-23-19 23 [facility] (1 source) Morphine Drug Allergy 05-25-19 21 [facility] (1 source) Pseudoephedrine Drug Allergy 02-22-20 22 Unknown [employer] Other (1 source) Allergies Reconciled Propensity to adverse reactions 02-28-20 Unknown [employer] Other (1 source) Substance with penicillin structure and antibacterial mechanism of action (substance) Drug allergy 02-28-20 22 Unknown [employer] Other (1 source) Morphine Sulfate (Concentrate) *ANALGESICS - OPIOI Propensity to adverse reactions 02-28-20 22 Unknown [employer] Other (9 sources) Doxycycline; Translations: [DOXYCYCLINE] Drug Allergy 02-08-20 23 Relay (1 source) 12 Hour Decongestant Allergy to substance 12-17-19 24 Unknown Reaction [facility] Medications Current Medications Medication Drug [...] as needed Orally every 6 hrs Active [id number] 200 actuat albuterol 0.09 mg/actuat metered dose [...] 06-20-2022 PROFE 391.3 (180 Fe) MG CAPS [id number]-Irslv Acid (1 source) Start: 12-17-2023 take 1 tablet by mouth once daily Co282-Yyxj-Vjqxd Acid Active 1 TAB PO Daily December [...] Orally once a d ay Active levonorgestrel 0.295301 mg/hr intrauterine system (3 sources) Progestin, Progestin-containing [...] tablet 0 11/16/2017 Active polyethylene glycol 3350 97978 mg powder for oral solution (3 sources) [...] Onset: 05-26-2022 Episodic Other aftercare (1 source) care home (current) use of insulin; Translations: [PENITENTIARY CURRENT USE OF INSULIN] Onset: 07-14-2022 Episodic [...] 13.3 % Normal 11.5-15.[address] [facility] Comment on above: Performed By: #### C JASON LÓPEZ, 3084-, 253-0 #### [facility] ([id number]) [address] [place] [address] [id number] Hematocrit (Bld) [Volume fraction] 33.1 % Low 35-[address] [facility] Comment on above: Performed By: #### C JASON LÓPEZ, 308-, 2532-0 #### [facility] ([id number]) [address] [place] [address] 84488 Hemoglobin (Bld) [Mass/Vol] 11.6 g/dL Low 11.7-15.[address] [facility] Comment on above: Performed By: #### C MARIBEL, CMP, 4-1, 2532-0 #### [facility] ([id number]) [address] [place] [address] 61133 MCH (RBC) [Entitic mass] 29.3 pg Normal 27-[address] [facility] Comment on above: Performed By: #### Kaushik LÓPEZ CMP, 4-1, 2532-0 #### [facility] ([id number]) [address] [place] [address] 90196 MCHC (RBC) [Mass/Vol] 35.1 g/dL Normal 32-36 [facility] Comment on above: Performed By: #### Kaushik LÓPEZ CMP, 4-, 2532-0 #### [facility] ([id number]) [address] [place] [address] 26489 MCV (RBC) [Entitic vol] 83 fL Normal 80-[address] [facility] Comment on above: Performed By: #### Kaushik LÓPEZ CMP, 3083-, 2532-0 #### [facility] ([id number]) [address] [place] [address] 86575 Platelet mean volume (Bld) [Entitic vol] 8.6 fL Normal 7-[address] [facility] Comment on above: Performed By: #### Kaushik LÓPEZ CMP, 3083-, 2531-0 #### [facility] ([id number]) [address] [place] [address] 61714 Platelets (Bld) [#/Vol] 190 10*3/uL Normal 150-[address] [facility] Comment on above: Performed By: #### Kaushik BC, CMP, 4-1, 2532-0 #### [facility] ([id number]) [address] [place] [address] 38642 RBC COUNT 3.97 X10E12/L Normal 3.80-5.[address] [facility] Comment on above: Performed By: #### C BC, CMP, 3084-1, 2532-0 #### [facility] ([id number]) [address] [place] [address] 42307 WBC (Bld) [#/Vol] 10.0 10*3/uL Normal 4.0-11.0 [facility] Comment on above: Performed By: #### C BC, CMP, 3084-1, 2532-0 #### [facility] ([id number]) [address] [place] [address] 43571 COMPREHENSIVE METABOLIC PANE Jaylan 01-15-2024 Albumin [Mass/Vol] 2.9 g/dL Low 3.2-5.3 [facility] Comment on above: Performed By: #### Kaushik BC, CMP, 3084-1, 2532-0 #### [facility] ([id number]) [address] [place] [address] [id number] ALP [Catalytic activity/Vol] 99 U/L Normal 39-[address] [facility] Comment on above: Performed By: #### C BC, CMP, 3084-1, 2532-0 #### [facility] ([id number]) [address] [place] [address] 37537 ALT [Catalytic activity/Vol] 18 U/L Normal 0-[address] [facility] Comment on above: Performed By: #### Kaushik BC, CMP, 3084-1, 2532-0 #### [facility] ([id number]) [address] [place] [address] [id number] Anion gap [Moles/Vol] 8 mmol/L Normal 5-15 [facility] Comment on above: Performed By: #### C BC, CMP, 3084-1, 2532-0 #### [facility] ([id number]) [address] [place] [address] 45421 AST [Catalytic activity/Vol] 17 U/L Normal 0-[address] [facility] Comment on above: Performed By: #### Kaushik LÓPEZ, CMP, 3084-1, 2532-0 #### [facility] ([id number]) [address] [place] [address] 79908 Bilirubin [Mass/Vol] 0.2 mg/dL Low 0.3-1.2 [facility] Comment on above: Performed By: #### Kaushik LÓPEZ, CMP, 3083-, 2532-0 #### [facility] ([id number]) [address] [place] [address] 58874 Calcium [Mass/Vol] 8.7 mg/dL Normal 8.5-10.5 [facility] Comment on above: Performed By: #### Kaushik LÓPEZ CMP, 3083-, 2532-0 #### [facility] ([id number]) [address] [place] [address] 67043 Chloride [Moles/Vol] 107 mmol/L Normal 98-109 [facility] Comment on above: Performed By: #### Kaushik LÓPEZ CMP, 3083-, 2532-0 #### [facility] ([id number]) [address] [place] [address] 69568 CO2 [Moles/Vol] 23 mmol/L Normal 22-[address] [facility] Comment on above: Performed By: #### Kaushik LÓPEZ CMP, 3083-, 2532-0 #### [facility] ([id number]) [address] [place] [address] 50080 Creatinine [Mass/Vol] 0.52 mg/dL Normal 0.40-1.00 [facility] Comment on above: Result Comment: METH OD TRACEABLE TO IDMS STANDARD Performed By: #### Kaushik LÓPEZ, CMP, 3084-1, 2532-0 #### [facility] ([id number]) [address] [place] [address] 05903 eGFR (CKD-EPI) NON-RACE DEPENDENT >90 Normal >[address] [facility] Comment on above: Result Comment: Reported eGFR is based on the CKD-EPI 2020 equation that does not use a race coefficient. Performed By: #### Kaushik LÓPEZ CMP, 3084-1, 2532-0 #### [facility] ([id number]) [address] [place] [address] 74983 Glucose [Mass/Vol] 106 mg/dL High 65-99 [facility] Comment on above: Performed By: #### Kaushik LÓPEZ CMP, 4-1, 2532-0 #### [facility] ([id number]) [address] [place] [address] 01897 Potassium [Moles/Vol] 3.7 mmol/L Normal 3.5-5.0 [facility] Comment on above: Performed By: #### Kaushik LÓPEZ CMP, 3083-, 2531-0 #### [facility] ([id number]) [address] [place] [address] 54270 Protein [Mass/Vol] 6.4 g/dL Normal 6.0-8.0 [facility] Comment on above: Performed By: #### Kaushik LÓPEZ CMP, 3084-, 2532-0 #### [facility] ([id number]) [address] [place] [address] 42579 Sodium [Moles/Vol] 138 mmol/L Normal 134-146 [facility] Comment on above: Performed By: #### Kaushik LÓPEZ CMP, 3083-1, 253-0 #### [facility] ([id number]) [address] [place] [address] 85966 Urea nitrogen [Mass/Vol] 9 mg/dL Normal 5-[address] [facility] Comment on above: Performed By: #### Kaushik LÓPEZ CMP, 3084-1, 2532-0 #### [facility] ([id number]) [address] [place] [address] 31004 LDH [Catalytic activity/Vol] on 01-15-2024 LDH 143 U/L Normal 100-[address] [facility] Comment on above: Performed By: #### B PHYLLIS, CBCA #### [facility] ([id number]) [address] [place] [address] 35462 URIC ACIDon 01-15-2024 Urate [Mass/Vol] 4.5 mg/dL Normal 2.6-7.2 [facility] Comment on above: Performed By: #### C BC, CMP, 3084-1, 2532-0 #### [facility] ([id number]) [address] [place] [address] 49773 URINALYSISon 01-15-2024 Bilirubin Ql (U) Negative Normal NEG [facility] Comment on above: Performed By: #### Curtis FERGUSON, CBCA #### [facility] ([id number]) [address] [place] [address] [place] [address] BLOOD/HGB Trace Abnormal NEG [facility] Comment on above: Performed By: #### Curtis FERGUSON, CBCA #### [facility] ([id number]) [address] [place] [address] 40203 Color (U) YELLOW Normal YELLOW [facility] Comment on above: Performed By: #### Curtis FERGUSON, CBCA #### [facility] ([id number]) [address] [place] [address] 63311 Glucose Ql (U) Negative Normal NEG [facility] Comment on above: Performed By: #### Curtis FERGUSON, CBCA #### [facility] ([id number]) [address] [place] [address], [place] [address] Ketones Ql (U) Negative Normal NEG [facility] Comment on above: Performed By: #### B PHYLLIS, CBCA #### [facility] ([id number]) [address] [place] [address] Leukocyte esterase Test strip Ql (U) Negative Normal NEG [facility] Comment on above: Performed By: #### B PHYLLIS, CBCA #### [facility] ([id number]) [address] [place] [address] 67360 Nitrite Ql (U) Negative Normal NEG [facility] Comment on above: Performed By: #### B PHYLLIS, CBCA #### [facility] ([id number]) [address] [place] [address] 99022 pH (U) 7.0 [pH] Normal 5.0-8.[address] [facility] Comment on above: Performed By: #### B PHYLLIS, CBCA #### [facility] ([id number]) [address] [place] [address] 04774 Protein Ql (U) Negative Normal NEG [facility] Comment on above: Performed By: #### B PHYLLIS, CBCA #### [facility] ([id number]) [address] [place] [address] 03711 R.B.CELLS 0 /hpf Normal 0-[address] [facility] Comment on above: Performed By: #### B PHYLLIS, CBCA #### [facility] ([id number]) [address] [place] [address] 12655 Specific gravity (U) [Rel density] 1.015 Normal 1.003-1.[address] [facility] Comment on above: Performed By: #### B PHYLLIS, CBCA #### [facility] ([id number]) [address] [place] [address] 93639 SQUAMOUS EPITHELIUM 2 to 5 Normal 0-5 [facility] Comment on above: Performed By: #### B PHYLLIS, CBCA #### [facility] ([id number]) [address] [place] [address] 46684 TURBIDITY CLEAR Normal CLEAR [facility] Comment on above: Performed By: #### B PHYLLIS, CBCA #### [facility] ([id number]) [address] [place] [address] 55800 Urobilinogen Qn (U) 0.2 {Manolo'U}/dL Normal <1.[address] [facility] Comment on above: Performed By: #### B PHYLLIS, CBCA #### [facility] ([id number]) [address] [place] [address] 79434 W.B.CELLS 2 to 5 Normal 0-[address] [facility] Comment on above: Performed By: #### B PHYLLIS, CBCA #### [facility] ([id number]) [address] [place] [address] 13611 Chlamydia/GC,DNA Ampon 12-31 Chlamydia Probe Negative Normal NEG [facility] Comment [...] PROSAC, HOCYS, GLYHGB, TSH, LUPPRO, FT4 #### [facility] [employer] [address] [place] [address] Director Records Management: Gideon Bullock MD #### AAFPM #### [address] [address] Director Records Management: Gideon Bullock MD [address] [address] Director Records Management: Fantasma Wood MD #### AF5MUT, AMTHFR, APTMUT #### [facility] [address] [place] [address] Director Records Management: Fantasma Wood MD Gonorrhea Probe Negative Normal NEG [facility] Comment [...] PROSAC, HOCYS, GLYHGB, TSH, LUPPRO, FT4 #### [address] [address] Director Records Management: Gideon Bullock MD #### AAFPM #### [address] [address] Director Records Management: Gideon Bullock MD [facility] [address] [place] [address] Director Records Management: Fantasma Wood MD #### AF5MUT, AMTHFR, APTMUT #### [facility] [address] [place] [address] Director Records Management: Fantasma Wood MD CBC with Diffon 12-31-2023 Abs. Basophil 0.03 k/uL Normal 0.00-0.20 [facility] Comment on above: Performed By: #### U VIVIEN URTPRT #### [facility] [address] [place] [address] Director Records Management: Gideon Bullock MD Abs.Imm.Granulocyte 0.04 k/uL Normal 0.00-0.30 [facility] Comment on above: Performed By: #### U AMIKaushik URTPRT #### [address] [address] Director Records Management: Gideon Bullock MD Abs.Neutrophil (Seg) 5.25 k/uL Normal 1.50-8.10 [facility] Comment on above: Performed By: #### U AMIC, URTPRT #### [address] [address] Director Records Management: Gideon Bullock MD Basophils/100 WBC (Bld) 0 % Normal 0-2 [facility] Comment on above: Performed By: #### U AMIC, URTPRT #### [address] [address] Director Records Management: Gideon Bullock MD Eosinophils (Bld) [#/Vol] 0.18 10*3/uL Normal 0.00-0.44 [facility] Comment on above: Performed By: #### U AMIC, URTPRT #### [address] [address] Director Records Management: Gideon Bullock MD Eosinophils/100 WBC (Bld) 2 % Normal 1-4 [facility] Comment on above: Performed By: #### U AMIC, URTPRT #### [address] [address] Director Records Management: Gideon Bullock MD Erythrocyte distribution width (RBC) [Ratio] 13.1 % Normal 11.8-14.4 [facility] Comment on above: Performed By: #### U AMIC, URTPRT #### [address] [address] Director Records Management: Gideon Bullock MD Hematocrit (Bld) [Volume fraction] 35.1 % Low 36.3-47.1 [facility] Comment on above: Performed By: #### U AMIC, URTPRT #### [facility] [employer] [address] [place] [address] Director Records Management: Gideon Bullock MD Hemoglobin (Bld) [Mass/Vol] 11.9 g/dL Normal 11.9-15.1 [facility] Comment on above: Performed By: #### U AMIC, URTPRT #### [address] [address] Director Records Management: Gideon Bullock MD Immature granulocytes/100 WBC (Bld) 1 % High 0 [facility] Comment on above: Performed By: #### U AMIC, URTPRT #### [address] [address] Director Records Management: Gideon Bullock MD Lymphocytes (Bld) [#/Vol] 1.81 10*3/uL Normal 1.10-3.70 [facility] Comment on above: Performed By: #### U AMIC, URTPRT #### [address] [address] Director Records Management: Gideon Bullock MD Lymphocytes/100 WBC (Bld) 23 % Low 24-43 [facility] Comment on above: Performed By: #### U AMIC, URTPRT #### [address] [address] Director Records Management: Gideon uBllock MD MCH (RBC) [Entitic mass] 28.9 pg Normal 25.2-33.5 [facility] Comment on above: Performed By: #### U AMIC, URTPRT #### [place] [address] Director Records Management: Gideon Bullock MD MCHC (RBC) [Mass/Vol] 33.9 g/dL Normal 28.4-34.8 [facility] Comment on above: Performed By: #### U AMIC, URTPRT #### [address] [address] Director Records Management: Gideon Bullock MD MCV (RBC) [Entitic vol] 85.2 fL Normal 82.6-102.9 [facility] Comment on above: Performed By: #### U AMIC, URTPRT #### [address] [address] Director Records Management: Gideon Bullock MD Monocytes (Bld) [#/Vol] 0.62 10*3/uL Normal 0.10-1.20 [facility] Comment on above: Performed By: #### U AMIC, URTPRT #### [address] [address] Director Records Management: Gideon Bullock MD Monocytes/100 WBC (Bld) 8 % Normal 3-12 [facility] Comment on above: Performed By: #### U AMIC, URTPRT #### [address] [address] Director Records Management: Gideon Bullock MD Neutrophil (Seg) 66 % High 36-65 [facility] Comment on above: Performed By: #### U AMIC, URTPRT #### [address] [address] Director Records Management: Gideon Bullock MD NRBC Automated 0.0 per 100 WBC Normal 0.0 [facility] Comment on above: Performed By: #### U AMIC, URTPRT #### [address] [address] Director Records Management: Gideon Bullock MD Platelet mean volume (Bld) [Entitic vol] 10.9 fL Normal 8.1-13.5 [facility] Comment on above: Performed By: #### U AMIC, URTPRT #### [address] [address] Director Records Management: Gideon Bullock MD Platelets (Bld) [#/Vol] 175 10*3/uL Normal 138-453 [facility] Comment on above: Performed By: #### U AMIC, URTPRT #### [address] [address] Director Records Management: Gideon Bullock MD RBC (Bld) [#/Vol] 4.12 10*6/uL Normal 3.95-5.11 [facility] Comment on above: Performed By: #### U AMIC, URTPRT #### [address] [address] Director Records Management: Gideon Bullock MD WBC (Bld) [#/Vol] 7.9 10*3/uL Normal 3.5-11.3 [facility] Comment on above: Performed By: #### U AMIC, URTPRT #### [address] [address] Director Records Management: Gideon Bullock MD Comp Metabolic Profon 2023 Albumin [Mass/Vol] 3.7 g/dL Normal 3.5-5.2 [facility] Comment on above: Performed By: #### U AMIC, URTPRT #### [address] [address] Director Records Management: Gideon Bullock MD Albumin/Glob Ratio 1.0 Normal 1.0-2.5 [facility] Comment on above: Performed By: #### U AMIC, URTPRT #### [address] [address] Director Records Management: Gideon Bullock MD Alkaline Phos 105 U/L High 35-104 [facility] Comment on above: Performed By: #### U AMIC, URTPRT #### [facility] [employer] [address] [place] [address] Director Records Management: Gideon Bullock MD ALT [Catalytic activity/Vol] 18 U/L Normal 10-35 [facility] Comment on above: Performed By: #### U AMIC, URTPRT #### [facility] [employer] [address] [place] [address] Director Records Management: Gideon Bullock MD Anion gap [Moles/Vol] 10 mmol/L Normal 9-16 [facility] Comment on above: Performed By: #### U AMIC, URTPRT #### [address] [address] Director Records Management: Gideon Bullock MD AST [Catalytic activity/Vol] 16 U/L Normal 10-35 [facility] Comment on above: Performed By: #### U AMIC, URTPRT #### [facility] [employer] [address] [place] [address] Director Records Management: Gideon Bullock MD Bilirubin [Mass/Vol] 0.2 mg/dL Normal 0.00-1.20 [facility] Comment on above: Performed By: #### U AMIC, URTPRT #### [facility] [employer] [address] [place] [address] Director Records Management: Gideon Bullock MD Calcium [Mass/Vol] 9.0 mg/dL Normal 8.6-10.4 [facility] Comment on above: Performed By: #### U AMIC, URTPRT #### [facility] [employer] [address] [place] [address] Director Records Management: Gideon Bullock MD Chloride [Moles/Vol] 106 mmol/L Normal 98-107 [facility] Comment on above: Performed By: #### U AMIC, URTPRT #### [facility] [employer] [address] [place] [address] Director Records Management: Gideon Bullock MD CO2 [Moles/Vol] 21 mmol/L Normal 20-31 [facility] Comment on above: Performed By: #### U AMIC, URTPRT #### [facility] [address] [place] [address] Director Records Management: Gideon Bullock MD Creatinine [Mass/Vol] 0.4 mg/dL Low 0.50-0.90 [facility] Comment on above: Performed By: #### U AMIC, URTPRT #### [address] [address] Director Records Management: Gideon Bullock MD GFR/1.73 sq M.predicted among non-blacks MDRD (S/P/Bld) [Vol rate/Area] mL/min/{1.73_m2} Normal >60 [facility] Comment [...] #### U AMIC, URTPRT #### [facility] [employer] [address] [place] [address] 169[address] Director Records Management: Gideon Bullock MD Glucose [Mass/Vol] 74 mg/dL Normal 74-99 [facility] Comment on above: Performed By: #### U AMIC, URTPRT #### [facility] [employer] [address] [place] [address]69 Director Records Management: Gideon Bullock MD Potassium [Moles/Vol] 3.9 mmol/L Normal 3.7-5.3 [facility] Comment on above: Performed By: #### U AMIC, URTPRT #### [facility] [employer] [address] [place] [address] Director Records Management: Gideon Bullock MD Protein [Mass/Vol] 6.9 g/dL Normal 6.6-8.7 [facility] Comment on above: Performed By: #### U AMIC, URTPRT #### [facility] [employer] [address] [place] [address] Director Records Management: Gideon Bullock MD Sodium [Moles/Vol] 137 mmol/L Normal 136-145 [facility] Comment on above: Performed By: #### U AMIC, URTPRT #### [address] [address] Director Records Management: Gideon Bullock MD Urea nitrogen [Mass/Vol] 9 mg/dL Normal 6-20 [facility] Comment on above: Performed By: #### U AMIC, URTPRT #### [address] [address] Director Records Management: Gideon Bullock MD Protein,Tot,Joseph Uron 2023 Creatinine [Mass/Vol] 123.0 mg/dL Normal 28.0-217.0 [facility] Comment on above: Performed By: #### U AMIC, URTPRT #### [address] [address] Director Records Management: Gideon Bullock MD Tot Prot. Conc. 14 mg/dL Normal [facility] Comment on above: Result Comment: No n ormal range established. Performed By: #### U AMIC, URTPRT #### [address] [address] Director Records Management: Gideon Bullock MD TP/Cre Ratio 0.12 Normal [facility] Comment on above: Performed By: #### U AMIC, URTPRT #### [address] [address] Director Records Management: Gideon Bullock MD Urinalysis w/ Microon 2023 Bacteria None Normal NONE [facility] Comment on above: Performed By: #### U AMIC, URTPRT #### [address] [address] Director Records Management: Gideon Bullock MD Bilirubin, SemiQt,Ur Negative Normal NEG [facility] Comment on above: Performed By: #### U AMIC, URTPRT #### [address] [address] Director Records Management: Gideon Bullock MD Blood, Urine MODERATE Abnormal NEG [facility] Comment on above: Performed By: #### U AMIC, URTPRT #### [address] [address] Director Records Management: Gideon Bullock MD Casts 0 TO 2 HYALINE Normal 0-8 [facility] Comment on above: Result Comment: Refe rence range defined for non-centrifuged specimen. Performed By: #### U AMIC, URTPRT #### [address] [address] Director Records Management: Gideon Bullock MD Clarity (U) Clear Normal CLEAR [facility] Comment on above: Performed By: #### U AMIC, URTPRT #### [address] [address] Director Records Management: Gideon Bullock MD Color (U) Yellow Normal YEL [facility] Comment on above: Performed By: #### U AMIC, URTPRT #### [address] [address] Director Records Management: Gideon Bullock MD Epithelial cells LM Ql (Urine sed) 5 TO 10 Normal 0-5 [facility] Comment on above: Performed By: #### U AMIC, URTPRT #### [address] [address] Director Records Management: Gideon Bullock MD Glucose Ql (U) Negative Normal NEG [facility] Comment on above: Performed By: #### U AMIC, URTPRT #### [address] [address] Director Records Management: Gideon Bullock MD Ketones Ql (U) Negative Normal NEG [facility] Comment on above: Performed By: #### U AMIC, URTPRT #### [facility] [employer] [address] [place] [address] Director Records Management: Gideon Bullock MD Leukocyte esterase Test strip Ql (U) TRACE Abnormal NEG [facility] Comment on above: Performed By: #### U AMIC, URTPRT #### [facility] [employer] [address] [place] [address] Director Records Management: Gideon Bullock MD Nitrite,Ur Negative Normal NEG [facility] Comment on above: Performed By: #### U AMIC, URTPRT #### [address] [address] Director Records Management: Gideon Bullock MD PH,Ur 6.0 Normal 5.0-8.0 [facility] Comment on above: Performed By: #### U AMIC, URTPRT #### [facility] [employer] [address] [place] [address] Director Records Management: Gideon Bullock MD Protein Ql (U) Negative Normal NEG [facility] Comment on above: Performed By: #### U AMIC, URTPRT #### [facility] [employer] [address] [place] [address] Director Records Management: Gideon Bullock MD Spec. [place],Ur 1.021 Normal 1.005-1.030 [facility] Comment on above: Performed By: #### U AMIC, URTPRT #### [facility] [employer] [address] [place] [address] Director Records Management: Gideon Bullock MD Urine RBC's 20 TO 50 Normal 0-4 [facility] Comment on above: Result Comment: Refe rence range defined for non-centrifuged specimen. Performed By: #### U AMIC, URTPRT #### [address] [address] Director Records Management: Gideon Bullock MD Urine WBC's 0 TO 2 Normal 0-5 [facility] Comment on above: Performed By: #### U AMIC, URTPRT #### [address] [address] Director Records Management: Gideon Bullock MD Urobilinogen,Ur Normal Normal 0.0-1.0 [facility] Comment on above: Performed By: #### U AMIC, URTPRT #### [address] [address] Director Records Management: Gideon Bullock MD Vaginitis DNA Probeon 2023 Litzy Negative Normal NEG [facility] Comment on above: Result Comment: for Litzy sp. Method of testing is a DNA probe intended for detection and identification of Litzy species, Gardnerella vaginalis, and Trichomonas vaginalis nucleic acid in vaginal fluid specimens from patients with symptoms of vaginitis/vaginosis. Performed By: #### U AMIC, URTPRT #### [address] [address] Director Records Management: Gideon Bullock MD Gardnerella Positive Abnormal NEG [facility] Comment on above: Result Comment: for Gardnerella vaginalis Performed By: #### U AMIC, URTPRT #### [address] [address] Director Records Management: Gideon Bullock MD Trichomonas Negative Normal NEG [facility] Comment on above: Result Comment: for Trichomonas Vaginalis Performed By: #### U AMIC, URTPRT #### [facility] [employer] [address] [place] [address] Director Records Management: Gideon Bullock MD Source .VAGINAL SWAB Normal [facility] Comment on above: Performed By: #### U AMIC, URTPRT #### [address] [address] Director Records Management: Gideon Bullock MD Thyroid Stim. Horm.on 2023 Thyroid Stim. Horm. 1.48 uIU/mL Normal 0.27-4.20 [facility] Comment on above: Performed By: #### U AMIC, URTPRT #### [address] [address] Director Records Management: Gideon Bullock MD Thyroxine, Freeon 12-06-2023 Thyroxine, Free 0.9 ng/dL Low 0.92-1.68 [facility] Comment on above: Performed By: #### U AMIC, URTPRT #### [address] [address] Director Records Management: Gideon Bullock MD Thyroid Stim. Horm.on 2023 Thyroid Stim. Horm. 1.66 uIU/mL Normal 0.27-4.20 [facility] Comment on above: Performed By: #### P ROCAC, AT3A, PROSAC, HOCYS, GLYHGB, TSH, LUPPRO, FT4 #### [address] [address] Director Records Management: Gideon Bullock MD #### AAFPM #### [address] [address] Director Records Management: Gideon Bullock MD [facility] [address] [place] [address] Director Records Management: Fantasma Wood MD #### AF5MUT, AMTHFR, APTMUT #### [facility] [address] [place] [address] Director Records Management: Fantasma Wood MD Thyroxine, Freeon 11-08-2023 Thyroxine, Free 0.9 ng/dL Low 0.92-1.68 [facility] Comment on above: Performed By: #### P ROCAC, AT3A, PROSAC, HOCYS, GLYHGB, TSH, LUPPRO, FT4 #### [facility] [address] [place] [address] Director Records Management: Gideon Bullock MD #### AAFPM #### [facility] [address] [place] [address] Director Records Management: Gideon Bullock MD [facility] [address] [place] [address] Director Records Management: Fantasma Wood MD #### AF5MUT, AMTHFR, APTMUT #### [facility] [address] [place], [place] [id number] Director Records Management: Fantasma Wood MD PT Mutation [id number] 10-13-19 24 PT [id number] VARIANT Negative Normal [facility] Comment on above: Result Comment: (NOT E) Indication for testing: Assess genetic risk for thrombosis. NEGATIVE: The Factor II, prothrombin R63436N mutation, was not detected. Other causes of [...] Dsouza, Ph.D. 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 PATHOGENIC VARIANT TESTED: F2 c.*97G>A (V12054P). CLINICAL SENSITIVITY FOR VENOUS THROMBOSIS: Approximately 10 percent. METHODOLOGY: Polymerase chain reaction and fluorescence monitoring. ANALYTICAL SENSITIVITY AND SPECIFICITY: 99 percent. LIMITATIONS: Diagnostic errors can occur due to rare sequence variations. F2 gene variants, other than c.*97G>A (R56328R), will not be detected. This test was developed and its performance characteristics determined by [facility]. It has not been cleared or approved by the [place] Food and Drug Administration. This test was performed in a CLIA certified laboratory and is intended for clinical purposes. Counseling and informed consent are recommended for genetic testing. Consent forms are available online. Performed By: [facility] [address] [place] [address] Registered Phlebotomist Part Time: Andrew Duran MD, PhD CLIA Number: [id number] Performed By: #### [employer], URTPRT #### [place] [id number] Director Records Management: Gideon Bullock MD PT PCR SPECIMEN Whole Blood Normal [facility] Comment on above: Performed By: #### U AMIC, URTPRT #### [facility] [employer] [address] [place] [address] [phone] Director Records Management: Gideon Bullock MD Factor V Mutationon 10-12-19 24 F 5 SPECIMEN Whole Blood Normal [facility] Comment on above: Performed By: #### U AMIC, URTPRT #### [facility] [employer] [address] [place] [address] [phone] Director Records Management: Gideon Bullock MD FACTOR 5 MUTATION Negative Normal [facility] Comment on above: Result Comment: (NOT E) Indication for testing: Assess genetic risk for thrombosis. NEGATIVE: The factor V Leiden variant, c.1601G>A; p.Hki417Sgw, was not detected. This does not exclude [...] function in the F5 gene variant c.1601G>A (p.Gjz589Mcf). Legacy nomenclature: R506Q (1691G>A) CLINICAL SENSITIVITY: 20-50 percent of individuals with an isolated VTE have the FVL variant. METHODOLOGY: Polymerase chain reaction and fluorescence monitoring. ANALYTICAL SENSITIVITY AND SPECIFICITY: 99 percent. LIMITATIONS: Diagnostic errors can occur due to rare sequence variations. F5 gene mutations, other than p.Nhn114Diy, will not be detected. This test was developed and its performance characteristics determined by [facility]. It has not been cleared or approved by the [place] Food and Drug Administration. This test was performed in a CLIA certified laboratory and is intended for clinical purposes. Counseling and informed consent are recommended for genetic testing. Consent forms are available online. Performed By: [facility] [address] [place] [address] Registered Phlebotomist Part Time: Andrew Duran MD, PhD CLIA Number: [id number] Performed By: #### U AMIC, URTPRT #### [facility] [address] [place] [address] Director Records Management: Gideon Bullock MD MTHFR Gene Mutationon 2023 MTHFR 1286 A>C Mut Heterozygous Normal [facility] Comment on above: Performed By: #### U AMIC, URTPRT #### [facility] [address] [place] [address] Director Records Management: Gideon Bullock MD MTHFR 655C>T Mut Negative Normal [facility] Comment on above: Performed By: #### U AMIC, URTPRT #### [facility] [employer] [facility] [address] [place] [address] Director Records Management: Gideon Bullock MD MTHFR Interpretation See Note Normal [facility] Comment on above: Result Comment: (NOT E) Indication for testing: Determine genetic contribution to hyperhomocysteinemia. 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 The [place] [employer] Practice Guidelines indicate [...] a contributing factor to hyperhomocysteinemia. Variants Tested: c.665C>T(p.Del968Smv) and c.1286A>C(p.Ptu152Unq). (legacy names C677T and S4262K, respectively). Clinical Sensitivity: Undefined; hyperhomocysteinemia is caused [...] developed and its performance characteristics determined by [facility]. It has not been cleared or approved by the [place] Food and Drug Administration. This test was performed in a CLIA certified laboratory and is intended for clinical purposes. Counseling and informed consent are recommended for genetic testing. Consent forms are available online. Performed By: [facility] [address] [place] [address] Registered Phlebotomist Part Time: Andrew Duran MD, PhD CLIA Number: [id number] Performed By: #### U AMIC, URTPRT #### [facility] [employer] [facility] [place], [place] [id number] Director Records Management: Gideon Bullock MD MTHFR SPECIMEN Whole Blood Normal [facility] Comment on above: Performed By: #### U AMIC, URTPRT #### [employer] [facility] [place], [place] [id number] Director Records Management: Gideon Bullock MD AFP, Maternalon 10-11-2023 Determined by Ultrasound Normal [facility] Comment on above: Performed By: #### U AMIC, URTPRT #### [employer] [facility] [place], [place] [id number] Director Records Management: Gideon Bullock MD Due Date SEE NOTE Normal [facility] Comment on above: Result Comment: Resu lts for Estimated Due Date: 02 26 24 Performed By: #### U AMIC, URTPRT #### [address] [address] Director Records Management: Gideon Bullock MD Family History No Normal [facility] Comment on above: Performed By: #### U AMIC, URTPRT #### [facility] [employer] [address] [place] [address] Director Records Management: Gideon Bullock MD Gestat Age (exact) 20 wks, 0 days Normal [facility] Comment on above: Performed By: #### U AMIC, URTPRT #### [facility] [employer] [address] [place] [address] Director Records Management: Gideon Bullock MD Ins Req Matern Diab Yes Normal [facility] Comment on above: Performed By: #### U AMIC, URTPRT #### [facility] [employer] [address] [place] [address] Director Records Management: Gideon Bullock MD Interpretation Screen Neg Normal [facility] [...] developed and its performance characteristics determined by [facility]. It has not been cleared or approved by the [place] Food and Drug Administration. This test was performed in a CLIA certified laboratory and is intended for clinical purposes. Performed By: #### U AMIC, URTPRT #### [address] [address] Director Records Management: Gideon Bullock MD [age] [facility] Comment on above: Performed By: #### U AMIC, URTPRT #### [facility] [employer] [address] [place] [address] Director Records Management: Gideon Bullock MD Maternal Race Nonblack [facility] Comment on above: Performed By: #### U AMIC, URTPRT #### [facility] [employer] [address] [place] [address] Director Records Management: Gideon Bullock MD Maternal Weight 298.0 lbs. [facility] Comment on above: Performed By: #### U AMIC, URTPRT #### [facility] [employer] [address] [place] [address] Director Records Management: Gideon Bullock MD MoM for AFP 1.29 [facility] Comment on above: Performed By: #### U AMIC, URTPRT #### [facility] [employer] [address] [place] [address] Director Records Management: Gideon Bullock MD Number of Fetuses Rodriguez [facility] Comment on above: Performed By: #### U AMIC, URTPRT #### [facility] [employer] [address] [place] [address] Director Records Management: Gideon Bullock MD Patient's AFP 39 ng/mL [facility] Comment on above: Performed By: #### U AMIC, URTPRT #### [facility] [address] [place] [address] Director Records Management: Gideon Bullock MD Smoking No [facility] Comment on above: Performed By: #### U AMIC, URTPRT #### [facility] [employer] [address] [place] [address] Director Records Management: Gideon Bullock MD Specimen See Note [facility] Comment on above: Result Comment: (NOT E) Initial sample Performed By: [facility] [address] [place] [address] Registered Phlebotomist Part Time: Andrew Duran MD, PhD CLIA Number: [id number] Performed By: #### U AMIC, URTPRT #### [facility] [address] [place] [address] Director Records Management: Gideon Bullock MD AFP, Maternalon 10-10-2023 Current Smoking NO [facility] Comment on above: Performed By: #### U AMIC, URTPRT #### [facility] [address] [place] [address] Director Records Management: Gideon Bullock MD Dating [facility] Comment on above: Performed By: #### U AMIC, URTPRT #### [facility] [address] [place] [address] Director Records Management: Gideon Bullock MD Diabetic YES [facility] Comment on above: Performed By: #### U AMIC, URTPRT #### [facility] [facility] [address] [place] [address] Director Records Management: Gideon Bullock MD Donor Egg NO [facility] Comment on above: Performed By: #### U AMIC, URTPRT #### [facility] [address] [place] [address] Director Records Management: Gideon Bullock MD Estimated Due Date [facility] Comment on above: Performed By: #### U AMIC, URTPRT #### [facility] [address] [place] [address] Director Records Management: Gideon Bullock MD Family History NONE [facility] Comment on above: Performed By: #### U AMIC, URTPRT #### [facility] [address] [place] [address] Director Records Management: Gideon Bullock MD In Vitro Fertalizat NO [facility] Comment on above: Performed By: #### U AMIC, URTPRT #### [facility] [address] [place] [address] Director Records Management: Gideon Bullock MD LMP date [id number] [facility] Comment on above: Performed By: #### U AMIC, URTPRT #### [facility] [address] [place] [address] Director Records Management: Gideon Bullock MD Maternal date [facility] Comment on above: Performed By: #### U AMIC, URTPRT #### [facility] [address] [place] [address] Director Records Management: Gideon Bullock MD Maternal Weight 298 [facility] Comment on above: Performed By: #### U AMIC, URTPRT #### [facility] [address] [place] [address] Director Records Management: Gideon Bullock MD Monochorionic Twins NO [facility] Comment on above: Performed By: #### U AMIC, URTPRT #### [facility] [address] [place] [address] Director Records Management: Gideon Bullock MD Patient Weight Units LB [facility] Comment on above: Performed By: #### U AMIC, URTPRT #### [facility] [address] [place] [address] Director Records Management: Gideon Bullock MD Race (Maternal) NON BLACK [facility] Comment on above: Performed By: #### U AMIC, URTPRT #### [facility] [address] [place] [address] Director Records Management: Gideon Bullock MD Repeat Specimen NO [facility] Comment on above: Performed By: #### U AMIC, URTPRT #### [address] [address] Director Records Management: Gideon Bullock MD Valproic/Carbamazep NONE Normal [facility] Comment on above: Performed By: #### U AMIC, URTPRT #### [address] [address] Director Records Management: Gideon Bullock MD Antithrombin III Kasia 10-09 Antithrombin III Act 110 % Normal 83-122 [facility] Comment on above: Result Comment: Patients receiving Hirudin may have a falsely decreased Antitrombin III Activity. Performed By: #### P ROCAC, AT3A, PROSAC, HOCYS, GLYHGB, TSH, LUPPRO, FT4 #### [address] [address] Director Records Management: Gideon Bullock MD #### AAFPM #### [address] [address] Director Records Management: Gideon Bullock MD [address] [phone] Director Records Management: Fantasma Wood MD #### AF5MUT, AMTHFR, APTMUT #### [address] [phone] Director Records Management: Fantasma Wood MD Lupus Anticoagulanton 5 Anticardiolipin IgA 1.8 APL Normal 0.0-14.0 [facility] Comment on above: Result Comment: Reference Range: <14.0 Negative 14.0-20.0 Equivocal >20.0 Positive When results are Equivocal, it is recommended to retest after 4-6 weeks. Performed By: #### P ROCAC, AT3A, PROSAC, HOCYS, GLYHGB, TSH, LUPPRO, FT4 #### [address] [address] Director Records Management: Gideon Bullock MD #### AAFPM #### [address] [address] Director Records Management: Gideon Bullock MD [address] [phone] Director Records Management: Fantasma Wood MD #### AF5MUT, AMTHFR, APTMUT #### [address] [phone] Director Records Management: Fantasma Wood MD Anticardiolipin IgG <0.5 Normal 0.0-10.0 [facility] Comment on above: Result Comment: Reference Range: <10.0 Negative 10.0-40.0 Equivocal >40.0 Positive Performed By: #### P ROCAC, AT3A, PROSAC, HOCYS, GLYHGB, TSH, LUPPRO, FT4 #### [address] [address] Director Records Management: Gideon Bullock MD #### AAFPM #### [address] [address] Director Records Management: Gideon Bullock MD [address] [phone] Director Records Management: Fantasma Wood MD #### AF5MUT, AMTHFR, APTMUT #### [address] [phone] Director Records Management: Fantasma Wood MD Anticardiolipin IgM <0.8 Normal 0.0-10.0 [facility] Comment on above: Result Comment: Reference Range: <10.0 Negative 10.0-40.0 Equivocal >40.0 Positive Performed By: #### P ROCAC, AT3A, PROSAC, HOCYS, GLYHGB, TSH, LUPPRO, FT4 #### [address] [address] Director Records Management: Gideon Bullock MD #### AAFPM #### [address] [address] Director Records Management: Gideon Bullock MD [facility] [address] [place] [address] Director Records Management: Fantasma Wood MD #### AF5MUT, AMTHFR, APTMUT #### [facility] [address] [place] [address] Director Records Management: Fantasma Wood MD Dilute Heladio Viper Negative Normal [facility]UP [facility] Comment on above: Performed By: #### P ROCAC, AT3A, PROSAC, HOCYS, GLYHGB, TSH, LUPPRO, FT4 #### [address] [address] Director Records Management: Gideon Bullock MD #### AAFPM #### [address] [address] Director Records Management: Gideon Bullock MD [facility] [address] [place] [address] Director Records Management: Fantasma Wood MD #### AF5MUT, AMTHFR, APTMUT #### [facility] [address] [place] [address] Director Records Management: Fantasma Wood MD Protein C Activityon 024 Protein C Activity 136 % Normal >80 [facility] Comment [...] PROSAC, HOCYS, GLYHGB, TSH, LUPPRO, FT4 #### [facility] [address] [place] [address] [phone] Director Records Management: Gideon Bullock MD #### AAFPM #### [address] [address] Director Records Management: Gideon Bullock MD [facility] [address] [place] [address] Director Records Management: Fantasma Wood MD #### AF5MUT, AMTHFR, APTMUT #### [facility] [address] [place] [address] Director Records Management: Fantasma Wood MD Protein S Activityon 024 Protein S Activity 68 % Normal 59-130 [facility] Comment [...] PROSAC, HOCYS, GLYHGB, TSH, LUPPRO, FT4 #### [address] [address] Director Records Management: Gideon Bullock MD #### AAFPM #### [address] [address] Director Records Management: Gideon Bullock MD [facility] [address] [place], [place] [phone] Director Records Management: Fantasma Wood MD #### AF5MUT, AMTHFR, APTMUT #### [facility] [address] [place] [address] Director Records Management: Fantasma Wood MD Hemoglobin A1Con 10-09-2023 Glucose [Mass/Vol] 103 mg/dL Normal [facility] Comment on above: Result Comment: The ADA and AACC recommend providing the estimated average glucose result to permit better patient understanding of their HBA1c result. Performed By: #### P ROCAC, AT3A, PROSAC, HOCYS, GLYHGB, TSH, LUPPRO, FT4 #### [facility] [address] [place] [address] Director Records Management: Gideon Bullock MD #### AAFPM #### [address] [address] Director Records Management: Gideon Bullock MD [facility] [address] [place] [address] Director Records Management: Fantasma Wood MD #### AF5MUT, AMTHFR, APTMUT #### [facility] [address] [place] [address] Director Records Management: Fantasma Wood MD HbA1c (Bld) [Mass fraction] 5.2 % Normal 4.0-6.0 [facility] Comment on above: Performed By: #### P ROCAC, AT3A, PROSAC, HOCYS, GLYHGB, TSH, LUPPRO, FT4 #### [address] [address] Director Records Management: Gideon Bullock MD #### AAFPM #### [address] [address] Director Records Management: Gideon Bullock MD [facility] [address] [place] [address] Director Records Management: Fantasma Wood MD #### AF5MUT, AMTHFR, APTMUT #### [facility] [address] [place] [address] Director Records Management: Fantasma Wood MD Homocysteineon 10-09-2023 Homocysteine 4.3 umol/L Normal 0.0-15.0 [facility] Comment on above: Performed By: #### P ROCAC, AT3A, PROSAC, HOCYS, GLYHGB, TSH, LUPPRO, FT4 #### [address] [address] Director Records Management: Gideon Bullock MD #### AAFPM #### [address] [address] Director Records Management: Gideon Bullock MD [address] [phone] Director Records Management: Fantasma Wood MD #### AF5MUT, AMTHFR, APTMUT #### [address] [phone] Director Records Management: Fantasma Wood MD Lupus Anticoagulanton 2023 aPTT Coag (Bld) [Time] 27.5 s Normal 23.0-36.5 [facility] Comment on above: Result Comment: IV Heparin Therapy Range: 66.0-92.0 sec Performed By: #### P ROCAC, AT3A, PROSAC, HOCYS, GLYHGB, TSH, LUPPRO, FT4 #### [address] [address] Director Records Management: Gideon Bullock MD #### AAFPM #### [address] [address] Director Records Management: Gideon Bullock MD [address] [phone] Director Records Management: Fantasma Wood MD #### AF5MUT, AMTHFR, APTMUT #### [facility] [address], [place] [phone] Director Records Management: Fantasma Wood MD INR Coag (PPP) [Relative time] 1.0 {INR} Normal [facility] Comment on above: Result Comment: Therapeutic Range: Moderate Anticoagulant Intensity: INR = 2.0-3.0 High Anticoagulant Intensity: INR = 2.5-3.5 Performed By: #### P ROCAC, AT3A, PROSAC, HOCYS, GLYHGB, TSH, LUPPRO, FT4 #### [address] [address] Director Records Management: Gideon Bullock MD #### AAFPM #### [address] [address] Director Records Management: Gideon Bullock MD [facility] [address] [place], [place] [phone] Director Records Management: Fantasma Wood MD #### AF5MUT, AMTHFR, APTMUT #### [facility] [address] [place] [address] Director Records Management: Fantasma Wood MD PT Coag (PPP) [Time] 13.1 s Normal 11.7-14.9 [facility] Comment on above: Performed By: #### P ROCAC, AT3A, PROSAC, HOCYS, GLYHGB, TSH, LUPPRO, FT4 #### [address] [address] Director Records Management: Gideon Bullock MD #### AAFPM #### [address] [address] Director Records Management: Gideon Bullock MD [facility] [address] [place], [place] [phone] Director Records Management: Fantasma Wood MD #### AF5MUT, AMTHFR, APTMUT #### [facility] [address] [place] [address] Director Records Management: Fantasma Wood MD Protein,Tot,Joseph Uron 2023 Creatinine [Mass/Vol] 120.0 mg/dL Normal 28.0-217.0 [facility] Comment on above: Performed By: #### U AMIC, URTPRT #### [address] [address] Director Records Management: Gideon Bullock MD Tot Prot. Conc. 10 mg/dL Normal [facility] Comment on above: Result Comment: No n ormal range established. Performed By: #### U AMIC, URTPRT #### [address] [address] Director Records Management: Gideon Bullock MD TP/Cre Ratio 0.08 Normal [facility] Comment on above: Performed By: #### U AMIC, URTPRT #### [address] [address] Director Records Management: Gideon Bullock MD Thyroid Stim. Horm.on 2023 Thyroid Stim. Horm. 2.35 uIU/mL Normal 0.27-4.20 [facility] Comment on above: Performed By: #### P ROCAC, AT3A, PROSAC, HOCYS, GLYHGB, TSH, LUPPRO, FT4 #### [address] [address] Director Records Management: Gideon Bullock MD #### AAFPM #### [address] [address] Director Records Management: Gideon Bullock MD [address] [address] Director Records Management: Fantasma Wood MD #### AF5MUT, AMTHFR, APTMUT #### [address] [address] Director Records Management: Fantasma Wood MD Thyroxine, Freeon 10-09-2023 Thyroxine, Free 0.9 ng/dL Low 0.92-1.68 [facility] Comment on above: Performed By: #### P ROCAC, AT3A, PROSAC, HOCYS, GLYHGB, TSH, LUPPRO, FT4 #### [address] [address] Director Records Management: Gideon Bullock MD #### AAFPM #### [address] [address] Director Records Management: Gideon Bullock MD [facility] [address] [place] [address] Director Records Management: Fantasma Wood MD #### AF5MUT, AMTHFR, APTMUT #### [facility] [address] [place] [address] Director Records Management: Fantasma Wood MD XR FOOT RT MIN [...] 09/10/2023 12:57 PM Normal [facility] MR BRAIN W WO CONTon 024 [...] 06/14/2023 8:30 AM Normal [facility] BASIC METABOLIC PANLon 05-16 Anion gap [Moles/Vol] 10 mmol/L Normal 5-15 [facility] Comment on above: Performed By: #### B JOSE FERGUSON #### [facility] ([id number]) [address] [place] [id number] Calcium [Mass/Vol] 8.9 mg/dL Normal 8.5-10.5 [facility] Comment on above: Performed By: #### B JOSE FERGUSON #### [facility] ([id number]) [address] [place] [address] Chloride [Moles/Vol] 107 mmol/L Normal 98-109 [facility] Comment on above: Performed By: #### B JOSE FERGUSON #### [facility] ([id number]) [address] [place] [address] CO2 [Moles/Vol] 18 mmol/L Low 22-[address] [facility] Comment on above: Performed By: #### B JOSE FERGUSON #### [facility] ([id number]) [address] [place] [address] Creatinine [Mass/Vol] 0.58 mg/dL Normal 0.40-1.00 [facility] Comment on above: Result Comment: METH OD TRACEABLE TO IDMS STANDARD Performed By: #### B JOSE FERGUSON #### [facility] ([id number]) [address] [place] [address] eGFR (CKD-EPI) NON-RACE DEPENDENT >90 Normal >[address] [facility] Comment on above: Result Comment: Reported eGFR is based on the CKD-EPI 2020 equation that does not use a race coefficient. Performed By: #### B MP, CBCA #### [facility] ([id number]) [address] [place] [address] Glucose [Mass/Vol] 109 mg/dL High 65-99 [facility] Comment on above: Performed By: #### B MP, CBCA #### [facility] ([id number]) [address] [place] [address] Potassium [Moles/Vol] 3.3 mmol/L Low 3.5-5.0 [facility] Comment on above: Performed By: #### B MP, CBCA #### [facility] ([id number]) [address] [place] [address] Sodium [Moles/Vol] 135 mmol/L Normal 134-146 [facility] Comment on above: Performed By: #### B PHYLLIS, CBCA #### [facility] ([id number]) [address] [place] [address] Urea nitrogen [Mass/Vol] 16 mg/dL Normal 5-[address] [facility] Comment on above: Performed By: #### B MP, CBCA #### [facility] ([id number]) [address] [place] [address] CBC AND AUTO DIFFon -24-20 24 ABSOLUTE BASOPHIL 0.1 X10E9/L Normal 0.0-0.2 [facility] Comment on above: Performed By: #### B MP, CBCA #### [facility] ([id number]) [address] [place] [address] ABSOLUTE NEUTROPHIL 4.6 X10E9/L Normal 1.5-6.6 [facility] Comment on above: Performed By: #### B MP, CBCA #### [facility] ([id number]) [address] [place] [address] Basophils/100 WBC (Bld) 0.7 % Normal [facility] Comment on above: Performed By: #### B MP, CBCA #### [facility] ([id number]) [address] [place] [address] Eosinophils (Bld) [#/Vol] 0.3 10*3/uL Normal 0.0-0.[address] [facility] Comment on above: Performed By: #### B MP, CBCA #### [facility] ([id number]) [address] [place] [address] Eosinophils/100 WBC (Bld) 4.4 % Normal [facility] Comment on above: Performed By: #### B MP, CBCA #### [facility] ([id number]) [address] [place] [address] Erythrocyte distribution width (RBC) [Ratio] 13.3 % Normal 11.5-15.[address] [facility] Comment on above: Performed By: #### B MP, CBCA #### [facility] ([id number]) [address] [place] [address] Hematocrit (Bld) [Volume fraction] 40.5 % Normal 35-[address] [facility] Comment on above: Performed By: #### B MP, CBCA #### [facility] ([id number]) [address] [place] [address] Hemoglobin (Bld) [Mass/Vol] 13.8 g/dL Normal 11.7-15.[address] [facility] Comment on above: Performed By: #### B MP, CBCA #### [facility] ([id number]) [address] [place] [address] Lymphocytes (Bld) [#/Vol] 2.0 10*3/uL Normal 1.0-3.[address] [facility] Comment on above: Performed By: #### B MP, CBCA #### [facility] ([id number]) [address] [place] [address] Lymphocytes/100 WBC (Bld) 26.3 % Normal [facility] Comment on above: Performed By: #### B MP, CBCA #### [facility] ([id number]) [address] [place] [address] MCH (RBC) [Entitic mass] 27.9 pg Normal 27-[address] [facility] Comment on above: Performed By: #### B MP, CBCA #### [facility] ([id number]) [address] [place] [address] MCHC (RBC) [Mass/Vol] 34.0 g/dL Normal 32-36 [facility] Comment on above: Performed By: #### B MP, CBCA #### [facility] ([id number]) [address] [place] [address] 10092 MCV (RBC) [Entitic vol] 82 fL Normal 80-[address] [facility] Comment on above: Performed By: #### B MP, CBCA #### [facility] ([id number]) [address] [place] [address] Monocytes (Bld) [#/Vol] 0.5 10*3/uL Normal 0-0.[address] [facility] Comment on above: Performed By: #### B MP, CBCA #### [facility] ([id number]) [address] [place] [address] Monocytes/100 WBC (Bld) 6.9 % Normal [facility] Comment on above: Performed By: #### B MP, CBCA #### [facility] ([id number]) [address] [place] [address] Neutrophils/100 WBC (Bld) 61.7 % Normal [facility] Comment on above: Performed By: #### B MP, CBCA #### [facility] ([id number]) [address] [place] [address] Platelet mean volume (Bld) [Entitic vol] 8.4 fL Normal 7-[address] [facility] Comment on above: Performed By: #### B MP, CBCA #### [facility] ([id number]) [address] [place] [address] Platelets (Bld) [#/Vol] 247 10*3/uL Normal 150-[address] [facility] Comment on above: Performed By: #### B MP, CBCA #### [facility] ([id number]) [address] [place] [address] RBC COUNT 4.93 X10E12/L Normal 3.80-5.[address] [facility] Comment on above: Performed By: #### B PHYLLIS, CBCA #### [facility] ([id number]) [address] [place] [address] WBC (Bld) [#/Vol] 7.5 10*3/uL Normal 4.0-11.0 [facility] Comment on above: Performed By: #### B PHYLLIS, CBCA #### [facility] ([id number]) [address] [place] [address] BRAIN WO CONTon CT BRAIN WO [...] No acute intracranial findings. Finalized by Servando DeL eon MD on 05/16/2023 10:57 AM Normal [facility] HCG ( test) Ql (U)o n 05-16-2023 Beta HCG ( test) Ql (U) Negative Normal NEG [facility] Comment on above: Performed By: #### 2 106-3 #### [facility] ([id number]) [address] [place] [address] URN MACROSCOPIC NURon 2023 BILIRUBIN TADEO Negative Normal [facility] Comment on above: Performed By: #### N UM #### [facility] ([id number]) [address] [place] [address] BLOOD/HGB TADEO Negative Normal [facility] Comment on above: Performed By: #### N UM #### [facility] ([id number]) [address] [place] [address] GLUCOSE TADEO Negative Normal [facility] Comment on above: Performed By: #### N UM #### [facility] ([id number]) [address] [place] [address] KETONES TADEO Negative Normal [facility] Comment on above: Performed By: #### N UM #### [facility] ([id number]) [address] [place] [address] 21341 LEUKOCYTE ESTERASE TADEO Negative Normal [facility] Comment on above: Performed By: #### N UM #### [facility] ([id number]) [address] [place] [address]49 NITRITE TADEO Negative Normal [facility] Comment on above: Performed By: #### N UM #### [facility] ([id number]) [address] [place] [address] 29551 PH TADEO 6.5 Normal 5.0-8.[address] [facility] Comment on above: Performed By: #### N UM #### [facility] ([id number]) [address] [place] [address] PROTEIN TADEO Negative Normal NEG [facility] Comment on above: Performed By: #### N UM #### [facility] ([id number]) [address] [place] [address] SPECIFIC GRAVITY TADEO 1.025 Normal 1.003-1.035 [facility] Comment on above: Performed By: #### N UM #### [facility] ([id number]) [address] [place] [address]156 UROBILINOGEN TADEO 0.2 eu/dL Normal <1.1 [facility] Comment on above: Performed By: #### N UM #### [facility] ([id number]) [address] [place] [address] 22892 COVID + FLU Quick Testingon 02-05-2023 SARS-CoV-2 (COVID-19) RNA SARANYA+probe Ql (Unsp spec) Negative [facility] sofatronic Other COVID + FLU Quick Testing Negative [facility] sofatronic Other Aerobic Cultureon 12-22-2022 Aerobic Culture Comment tube 2 No Growth 2 Days Comment tube 2 No Anaerobes Isolated 3 Days Comment tube 2 Gram Stain Result No White Blood Cells Seen No Bacteria Seen PERFORMED BY: [place] [address] PATHOLOGIST CARDIAC CATH TECH ALLEN COATES M.D. Normal [facility] Comment on above: Performed By: #### C BC, PT, PTT #### [place] [id number] [place] CSF PCR Panelon 12-22-2022 CSF PCR [...] Varicella zoster virus Not detected PERFORMED BY: [place] [address] PATHOLOGIST CARDIAC CATH TECH ALLEN COATES M.D. [facility] Comment on above: Performed By: #### C SF PCR PANEL #### [address] Cell Count Differential,CSFo n 12-22-2022 Appearance, CSF Clear Normal Clear [facility] Comment on above: Order Comment: Comme nt tube 1 Performed By: #### C SFCCDIFF #2, CSF TP #2, CSF GLU #2, CSF GLU, CSF TP, GS, AERC, CSFCCDIFF #### [address] Order Comment: Comme nt tube 4 Color, CSF Colorless Normal Colorless [facility] Comment on above: Order Comment: Comme nt tube 1 Performed By: #### C SFCCDIFF #2, CSF TP #2, CSF GLU #2, CSF GLU, CSF TP, GS, AERC, CSFCCDIFF #### [address] Order Comment: Comme nt tube 4 CSF Supernatant Color Colorless Normal Colorless [facility] Comment on above: Order Comment: Comme nt tube 1 Performed By: #### C SFCCDIFF #2, CSF TP #2, CSF GLU #2, CSF GLU, CSF TP, GS, AERC, CSFCCDIFF #### [address] Order Comment: Comme nt tube 4 CSF Volume, Total 29.[address] [facility] Comment on above: Order Comment: Comme nt tube 1 Performed By: #### C SFCCDIFF #2, CSF TP #2, CSF GLU #2, CSF GLU, CSF TP, GS, AERC, CSFCCDIFF #### [facility] [address] Order Comment: Comme nt tube 4 Lymphocytes, CSF 4 Normal [facility] Comment on above: Order Comment: Comme nt tube 1 Result Comment: The reference interval and other method performance specifications have not been established for this body fluid. The test result must be integrated into the clinical context for interpretation. Performed By: #### C SFCCDIFF #2, CSF TP #2, CSF GLU #2, CSF GLU, CSF TP, GS, AERC, CSFCCDIFF #### [facility] [address] [place] [address] RBC, CSF 2 /uL Normal [facility] Comment on above: Order Comment: Comme nt tube 1 Result Comment: The reference interval and other method performance specifications have not been established for this body fluid. The test result must be integrated into the clinical context for interpretation. Performed By: #### C SFCCDIFF #2, CSF TP #2, CSF GLU #2, CSF GLU, CSF TP, GS, AERC, CSFCCDIFF #### [facility] [address] [place] [address] TNC, CSF 1 /uL Normal 0-5 [facility] Comment on above: Order Comment: Comme nt tube 1 Performed By: #### C SFCCDIFF #2, CSF TP #2, CSF GLU #2, CSF GLU, CSF TP, GS, AERC, CSFCCDIFF #### [facility] [address] [place] [address] Order Comment: Comme nt tube 4 Tube Number Tested, CSF Tube Number: 1 Normal [facility] Comment on above: Order Comment: Comme nt tube 1 Result Comment: PERF ORMED BY: [place] [address] PATHOLOGIST CARDIAC CATH TECH ALLEN COATES M.D. Performed By: #### C SFCCDIFF #2, CSF TP #2, CSF GLU #2, CSF GLU, CSF TP, GS, AERC, CSFCCDIFF #### [facility] [address] Cell Count Differential,CSF #2on 12-22-2022 Lymphocytes, CSF 7 Normal [facility] Comment on above: Order Comment: Comme nt tube 4 Result Comment: The reference interval and other method performance specifications have not been established for this body fluid. The test result must be integrated into the clinical context for interpretation. Performed By: #### C SFCCDIFF #2, CSF TP #2, CSF GLU #2, CSF GLU, CSF TP, GS, AERC, CSFCCDIFF #### [facility] [address] [place] [address] RBC, CSF 1 /uL Normal [facility] Comment on above: Order Comment: Comme nt tube 4 Result Comment: The reference interval and other method performance specifications have not been established for this body fluid. The test result must be integrated into the clinical context for interpretation. Performed By: #### C SFCCDIFF #2, CSF TP #2, CSF GLU #2, CSF GLU, CSF TP, GS, AERC, CSFCCDIFF #### [address] Tube Number Tested, CSF Tube Number: 4 Normal [facility] Comment on above: Order Comment: Comme nt tube 4 Result Comment: PERF ORMED BY: [place] [address] PATHOLOGIST CARDIAC CATH TECH ALLEN COATES M.D. Performed By: #### C SFCCDIFF #2, CSF TP #2, CSF GLU #2, CSF GLU, CSF TP, GS, AERC, CSFCCDIFF #### [address] Cerebrospinal fluid post-adams trifugation appearance determinationOrdered By: Razia Muller on 12-22-2022 Appearance (Spun CSF) Colorless Colorless [facility] Cerebrospinal fluid sample t ube volume measurementOrdered By: Razia Muller on 12-22-2022 Specimen volume (CSF) 29.4 mL [facility] Color CSFOrdered By: Razia longo on 12-22-2022 Color (CSF) Colorless Colorless [facility] Glucose, CSF #2on 12-22-2022 Glucose, CSF #2 71 mg/dL High 40-70 [facility] Comment on above: Order Comment: Comme nt tube 4 Performed By: #### C BC, PT, PTT #### [facility] [address] [place] [address] [place] Glucose, Spinal Fluidon Glucose, Spinal Fluid 73 mg/dL High 40-70 [facility] Comment on above: Order Comment: Comme nt tube 1 Performed By: #### C SFCCDIFF #2, CSF TP #2, CSF GLU #2, CSF GLU, CSF TP, GS, AERC, CSFCCDIFF #### [facility] [address] [place] [address] Gram Stainon 12-22-2022 Microscopic observation Gram stain Nom (Unsp spec) Comment tube 2 Gram Stain Result No White Blood Cells Seen No Bacteria Seen PERFORMED BY: [place] [address] PATHOLOGIST CARDIAC CATH TECH ALLEN COATES M.D. [facility] Comment on above: Performed By: #### C SFCCDIFF #2, CSF TP #2, CSF GLU #2, CSF GLU, CSF TP, GS, AERC, CSFCCDIFF #### [facility] [address] [place] [address] IR guided lumbar puncture LP on 12-22-2022 IR guided lumbar puncture LP [facility] [place] [address] [place] [address] Interventional Radiology Rpt Signed Patient: Yani Stevens MR#: [id number] : 1990 Acct:[id number] Age/Sex: 32 / F ADM Date: 12/22/22 Loc: XD Room: Type: [facility] Attending Dr: Razia EVANGELISTA Copies [...] Vernon Lin M.D.12/22/2022 1:07 PM Dictation Location: [place] [address] Transcribed By: PATT 12/22/22 7567 Dictated By: Vernon Lin II, MD 12/22/22 1253 Signed By: 12/22/22 1307 [facility] 12-22-2022 L ---- Specimen: [id number] Received: 12/22/22 Status: TERRANCE Collado Num: [id number] Spec Type: Cytology Subm Dr: TONJA Jimenez Tissues: A CSF (CSF) Procedures: Cyto Prepstain, DIFF QWIK, PAPSTN Age/ Patient Sex Location Account Attending Physician Yani Stevens 32/F XD [id number] TONJA Jimenez SPEC NUM: [id number] RECD: 12/22/22 STATUS: TERRANCE PAN NUM: [id number] TOMASA: 12/22/[address] [facility] [address]: TONJA Jimenez ENTERED: 12/22/[address] [facility] [address]: Vernon Lin II, MD SPEC TYPE: Cytology DEPT: MARVIN ENTERED BY: [id number] RECV BY: [id number] ORDERED: Cyto Prepstain, DIFF QWIK, PAPSTN ORDERED: [...] [id number] Received: 12/22/22 Status: TERRANCE Collado Num: [id number] Spec Type: Cytology Subm Dr: Razia Muller, CARE AIDE-FREIGHT TRUCKER-C Tissues: A CSF (CSF) Procedures: Cyto Prepstain, DIFF QWIK, PAPQUITA Patient: Yani Stevens [id number] (Continued) Signed (signature on file) Dimas De Anda MD 12/26/22 0905 Normal [facility] Manual cerebrospinal fluid e rythrocytes count (number/volume)Ordered By: Razia Muller on 12-22-2022 RBC Manual cnt (CSF) [#/Vol] 1 /uL [facility] Comment on above: The reference interv al and other method performance specifications have not been established for this body fluid. The test result must be integrated into the clinical context for interpretation. No Panel InformationOrdered By: Razia Muller on 12-22-2022 CSF Appearance Clear Clear [facility] CSF Eosinophils N/A [facility] CSF Lymphocytes 7 [facility] Comment on above: The reference interv al and other method performance specifications have not been established for this body fluid. The test result must be integrated into the clinical context for interpretation. CSF Monocytes N/A [facility] CSF Neutrophils N/A [facility] CSF Tube Number Tube number: 4 [facility] Nucleated cells [#/volume] i n Cerebral spinal fluid by Manual countOrdered By: Razia Muller on 12-22-2022 Nucleated cells Manual cnt (CSF) [#/Vol] 0.001 10*3/uL 0-5 [facility] Total Protein, CSF #2on 09-0 Total Protein, CSF #2 31 mg/dL Normal 15-45 [facility] Comment on above: Order Comment: Comme nt tube 4 Result Comment: PERF ORMED BY: [place] [address] PATHOLOGIST CARDIAC CATH TECH ALLEN COATES M.D. Performed By: #### C BC, PT, PTT #### [place] [address] [place] Total Protein, Spinal Fluido n 12-22-2022 Total Protein, Spinal Fluid 34 mg/dL Normal 15-45 [facility] Comment on above: Order Comment: Comme nt tube 1 Result Comment: PERF ORMED BY: [place] [address] PATHOLOGIST CARDIAC CATH TECH ALLEN COATES M.D. Performed By: #### C BC, PT, PTT #### [facility] [address] [place] [address] Activated partial thrombopla stin time (aPTT) in platelet poor plasma by coagulation aOrdered By: Razia Muller on 12-20-2022 aPTT Coag (PPP) [Time] 32.8 s 25.1-36.5 [facility] Basophils Auto (Bld) [#/Vol] Ordered By: Razia Muller on 12-20-2022 Basophils (Bld) [#/Vol] 0.0 10*3/uL 0.0-0.2 [facility] Basophils/100 WBC Auto (Bld) Ordered By: Razia Muller on 12-20-2022 Basophils/100 WBC (Bld) 0.5 % . [facility] Complete Blood Count Auto Di ffon 12-20-2022 Basophils (Bld) [#/Vol] 0.0 10*3/uL Normal 0.0-0.2 [facility] Comment on above: Result Comment: PERF ORMED BY: [place] [address] PATHOLOGIST CARDIAC CATH TECH ALLEN COATES M.D. Performed By: #### C BC, PT, PTT #### [facility] [address] [place] [address] [place] Basophils/100 WBC (Bld) 0.5 % Normal . [facility] Comment on above: Performed By: #### C BC, PT, PTT #### [facility] [address] [place] [address] [place] Eosinophils (Bld) [#/Vol] 0.2 10*3/uL Normal 0.0-0.45 [facility] Comment on above: Performed By: #### C BC, PT, PTT #### [facility] [address] [place] [address] [place] Eosinophils/100 WBC (Bld) 3.2 % Normal . [facility] Comment on above: Performed By: #### C BC, PT, PTT #### [facility] [address] Erythrocyte distribution width (RBC) [Ratio] 13.9 % Normal 11.9-15.3 [facility] Comment on above: Performed By: #### C BC, PT, PTT #### [facility] [address] Hematocrit (Bld) [Volume fraction] 40.9 % Normal 34.0-46.4 [facility] Comment on above: Performed By: #### C BC, PT, PTT #### [facility] [address] Hemoglobin (Bld) [Mass/Vol] 13.6 g/dL Normal 11.8-15.4 [facility] Comment on above: Performed By: #### C BC, PT, PTT #### [address] Lymphocytes (Bld) [#/Vol] 2.1 10*3/uL Normal 1.00-4.8 [facility] Comment on above: Performed By: #### C BC, PT, PTT #### [address] Lymphocytes/100 WBC (Bld) 29.1 % Normal . [facility] Comment on above: Performed By: #### C BC, PT, PTT #### [address] MCH (RBC) [Entitic mass] 27.6 pg Normal 24.7-34.3 [facility] Comment on above: Performed By: #### C BC, PT, PTT #### [address] MCV (RBC) [Entitic vol] 83.0 fL Normal 80-100 [facility] Comment on above: Performed By: #### C BC, PT, PTT #### [address] Mean Corpuscular HGB Conc 33.2 g/dL Normal 32.0-35.0 [facility] Comment on above: Performed By: #### C BC, PT, PTT #### [facility] [address] Monocytes (Bld) [#/Vol] 0.5 10*3/uL Normal 0.0-0.8 [facility] Comment on above: Performed By: #### C BC, PT, PTT #### [facility] [address] Monocytes/100 WBC (Bld) 6.3 % Normal . [facility] Comment on above: Performed By: #### C BC, PT, PTT #### [facility] [address] Neutrophils (Bld) [#/Vol] 4.4 10*3/uL Normal 1.8-7.7 [facility] Comment on above: Performed By: #### C BC, PT, PTT #### [address] Neutrophils/100 WBC (Bld) 60.9 % Normal . [facility] Comment on above: Performed By: #### C BC, PT, PTT #### [facility] [address] [place] [address] NRBC% 0.1 /100{WBC} Normal 0-0.5 [facility] Comment on above: Performed By: #### C BC, PT, PTT #### [facility] [address] [place] [address] [place] Platelet mean volume (Bld) [Entitic vol] 8.1 fL Normal 6.3-10.7 [facility] Comment on above: Performed By: #### C BC, PT, PTT #### [facility] [address] [place] [address] [place] Platelets (Bld) [#/Vol] 222 10*3/uL Normal 150-450 [facility] Comment on above: Performed By: #### C BC, PT, PTT #### [facility] [address] [place] [address] [place] RBC (Bld) [#/Vol] 4.93 10*6/uL Normal 3.60-5.00 [facility] Comment on above: Performed By: #### C BC, PT, PTT #### [facility] [address] WBC (Bld) [#/Vol] 7.3 10*3/uL Normal 3.8-11.6 [facility] Comment on above: Performed By: #### C BC, PT, PTT #### [facility] [address] Eosinophils Auto (Bld) [#/Vo l]Ordered By: Razia Muller on 12-20-2022 Eosinophils (Bld) [#/Vol] 0.2 10*3/uL 0.0-0.45 [facility] Eosinophils/100 WBC Auto (Bl d)Ordered By: Razia Muller on 12-20-2022 Eosinophils/100 WBC (Bld) 3.2 % . [facility] Erythrocyte distribution wid th Auto (RBC) [Ratio]Ordered By: Razia Muller on 12-20-2022 Erythrocyte distribution width (RBC) [Ratio] 13.9 % 11.9-15.3 [facility] Hematocrit Auto (Bld) [Volum e fraction]Ordered By: Razia Muller on 12-20-2022 Hematocrit (Bld) [Volume fraction] 40.9 % 34.0-46.4 [facility] Hemoglobin [Mass/volume] in BloodOrdered By: Razia Muller on 12-20-2022 Hemoglobin (Bld) [Mass/Vol] 13.6 g/dL 11.8-15.4 [facility] INR in Platelet poor plasma by Coagulation assayOrdered By: Razia Muller on 12-20-2022 INR Coag (PPP) [Relative time] 1.0 {INR} [facility] Comment on above: INR Therapeutic Rang [...] Coag (PPP) [Time] 11.1 s 9.0-12.9 [facility] Leukocytes [#/volume] correc burke for nucleated erythrocytes in Blood by Automated counOrdered By: Razia Muller on 12-20-2022 WBC corrected for nucl RBC Auto (Bld) [#/Vol] 7.3 10*3/uL 3.8-11.6 [facility] Lymphocytes Auto (Bld) [#/Vo l]Ordered By: Razia Muller on 12-20-2022 Lymphocytes (Bld) [#/Vol] 2.1 10*3/uL 1.00-4.8 [facility] Lymphocytes/100 WBC Auto (Bl d)Ordered By: Razia Muller on 12-20-2022 Lymphocytes/100 WBC (Bld) 29.1 % . [facility] MCH Auto (RBC) [Entitic mass ]Ordered By: Razia Muller on 12-20-2022 MCH (RBC) [Entitic mass] 27.6 pg 24.7-34.3 [facility] MCHC Auto (RBC) [Mass/Vol]Or dered By: Razia Muller on 12-20-2022 MCHC (RBC) [Mass/Vol] 33.2 g/dL 32.0-35.0 [facility] MCV Auto (RBC) [Entitic vol] Ordered By: Razia Muller on 12-20-2022 MCV (RBC) [Entitic vol] 83.0 fL 80-100 [facility] Monocytes Auto (Bld) [#/Vol] Ordered By: Razia Muller on 12-20-2022 Monocytes (Bld) [#/Vol] 0.5 10*3/uL 0.0-0.8 [facility] Monocytes/100 WBC Auto (Bld) Ordered By: Razia Muller on 12-20-2022 Monocytes/100 WBC (Bld) 6.3 % . [facility] Neutrophils Auto (Bld) [#/Vo l]Ordered By: Razia Muller on 12-20-2022 Neutrophils (Bld) [#/Vol] 4.4 10*3/uL 1.8-7.7 [facility] Neutrophils/100 WBC Auto (Bl d)Ordered By: Razia Muller on 12-20-2022 Neutrophils/100 WBC (Bld) 60.9 % . [facility] Nucleated erythrocytes [Pres ence] in Blood by Automated countOrdered By: Razia Muller on 12-20-2022 Nucleated RBC Auto Ql (Bld) 0.1 /100{WBC} 0-0.5 [facility] Partial Thromboplastin Timeo n 12-20-2022 aPTT Coag (Bld) [Time] 32.8 s Normal 25.1-36.5 [facility] Comment on above: Result Comment: PERF ORMED BY: [place] [address] PATHOLOGIST CARDIAC CATH TECH ALLEN COATES M.D. Performed By: #### C BC, PT, PTT #### [facility] [address] Platelet mean volume Auto (B ld) [Entitic vol]Ordered By: Razia Muller on 12-20-2022 Platelet mean volume (Bld) [Entitic vol] 8.1 fL 6.3-10.7 [facility] Platelets Auto (Bld) [#/Vol] Ordered By: Razia Muller on 12-20-2022 Platelets (Bld) [#/Vol] 222 10*3/uL 150-450 [facility] Prothrombin Time INRon 12-20 INR Coag (PPP) [Relative time] 1.0 {INR} Normal [facility] Comment on above: Result Comment: INR [...] PTT #### [facility] [address] PT Coag (PPP) [Time] 11.1 s Normal 9.0-12.9 [facility] Comment on above: Performed By: #### C BC, PT, PTT #### [facility] [address] RBC Auto (Bld) [#/Vol]Ordere d By: Razia Renzo on 12-20-2022 RBC (Bld) [#/Vol] 4.93 10*6/uL 3.60-5.00 [facility] WBC Auto (Bld) [#/Vol]Ordere d By: Razia Renzo on 12-20-2022 WBC (Bld) [#/Vol] 7.3 10*3/uL 3.8-11.6 [facility] POC Glucose Fingerstickon Glucose [Mass/Vol] 85 mg/dL 65 - 105 mg/dL [employer] C.trachomatis N.gonorrhoeae DNA, Urineon 07-21-2022 Chlamydia sp DNA SARANYA+probe Ql (U) Negative NEGATIVE [employer] Comment on above: CHLAMYDIA TRACHOMATI S DNA [...] gonorrhoeae DNA SARANYA+probe Ql (U) Negative NEGATIVE [employer] Comment on above: NEISSERIA GONORRHOEA E DNA [...] alternative nucleic acid target. Specimen Description .URINE [employer] CBC auto differentialon 06-23 Absolute Eos # [facility] Absolute Immature Granulocyte 0.12 [facility] Absolute Lymph # 1.21 [facility] Absolute Hidalgo # 0.69 [facility] Basophils (Bld) [#/Vol] 0.03 10*3/uL [facility] Basophils/100 WBC (Bld) 0 % 0 - 2 % [facility] Eosinophils/100 WBC (Bld) 0 % Low 1 - 4 % [facility] Hematocrit (Bld) [Volume fraction] 33.5 % Low 36.3 - 47.1 % [facility] Hemoglobin (Bld) [Mass/Vol] 10.8 g/dL Low 11.9 - 15.1 g/dL [facility] Immature granulocytes/100 WBC (Bld) 1 % High 0 [facility] Interpretation and review of laboratory results Abnormal [facility] Lymphocytes/100 WBC (Bld) 8 % Low 24 - 43 % [facility] MCH (RBC) [Entitic mass] 28.4 pg 25.2 - 33.5 pg [facility] MCHC (RBC) [Mass/Vol] 32.2 g/dL 28.4 - 34.8 g/dL [facility] MCV (RBC) [Entitic vol] 88.2 fL 82.6 - 102.9 fL [facility] Monocytes/100 WBC (Bld) 4 % 3 - 12 % [facility] NRBC Automated 0.0 0.0 per 100 WBC [facility] Platelet distribution width (Bld) [Ratio] 13.2 % 11.8 - 14.4 % [facility] Platelet mean volume (Bld) [Entitic vol] 10.5 fL 8.1 - 13.5 fL [facility] Platelets (Bld) [#/Vol] 197 10*3/uL [facility] RBC (Bld) [#/Vol] 3.80 10*6/uL Low 3.95 - 5.1 1 m/uL [facility] Segmented neutrophils/100 WBC (Bld) 87 % High 36 - 65 % [facility] Segs Absolute 13.58 High [facility] WBC (Bld) [#/Vol] 15.6 10*3/uL High [facility] Culture, Urineon 07-21-2022 Microorganism identified Cx Nom (Unsp spec) NO SIGNIFICANT GROWTH [facility] Specimen Description .CLEAN CATCH URINE [facility] POC Glucose Fingerstickon Glucose [Mass/Vol] 108 mg/dL High 65 - 105 mg/dL [facility] Interpretation and review of laboratory results Abnormal [facility] Glucose [Mass/Vol] 95 mg/dL 65 - 105 mg/dL [facility] Glucose [Mass/Vol] 123 mg/dL High 65 - 105 mg/dL [facility] Interpretation and review of laboratory results Abnormal [facility] CBCon 07-20-2022 Hematocrit (Bld) [Volume fraction] 32.8 % Low 36.3 - 47.1 % [facility] Hemoglobin (Bld) [Mass/Vol] 11.0 g/dL Low 11.9 - 15.1 g/dL [facility] Interpretation and review of laboratory results Abnormal [facility] MCH (RBC) [Entitic mass] 28.6 pg 25.2 - 33.5 pg [facility] MCHC (RBC) [Mass/Vol] 33.5 g/dL 28.4 - 34.8 g/dL [facility] MCV (RBC) [Entitic vol] 85.4 fL 82.6 - 102.9 fL [facility] NRBC Automated 0.0 0.0 per 100 WBC [facility] Platelet distribution width (Bld) [Ratio] 13.2 % 11.8 - 14.4 % [facility] Platelet mean volume (Bld) [Entitic vol] 10.8 fL 8.1 - 13.5 fL [facility] Platelets (Bld) [#/Vol] 200 10*3/uL [facility] RBC (Bld) [#/Vol] 3.84 10*6/uL Low 3.95 - 5.1 1 m/uL [facility] WBC (Bld) [#/Vol] 10.2 10*3/uL [facility] Comprehensive Metabolic Pane jaylan 07-20-2022 Albumin [Mass/Vol] 3.3 g/dL Low 3.5 - 5.2 g/dL [facility] Albumin/Globulin [Mass ratio] 1.0 {ratio} 1.0 - 2.5 [facility] ALP [Catalytic activity/Vol] 142 U/L High 35 - 104 U/L [facility] ALT [Catalytic activity/Vol] 15 U/L 5 - 33 U/L [facility] Anion gap [Moles/Vol] 12 mmol/L 9 - 17 mmol/L [facility] AST [Catalytic activity/Vol] 15 U/L NINF - 32 U/L [facility] Bilirubin [Mass/Vol] mg/dL Low 0.3 - 1 .2 mg/dL [facility] Calcium [Mass/Vol] 9.0 mg/dL 8.6 - 10. 4 mg/dL [facility] Chloride [Moles/Vol] 104 mmol/L 98 - 10 7 mmol/L [facility] CO2 [Moles/Vol] 21 mmol/L 20 - 31 mmol/L [facility] Creatinine [Mass/Vol] 0.41 mg/dL Low 0.50 - 0.90 mg/dL [facility] GFR/1.73 sq M.predicted MDRD (S/P/Bld) [Vol rate/Area] - PINF [facility] Comment on above: These results are [...] 135 mg/dL High 70 - 99 mg/dL [facility] Interpretation and review of laboratory results Abnormal [facility] Potassium [Moles/Vol] 3.8 mmol/L 3.7 - 5.3 mmol/L [facility] Protein [Mass/Vol] 6.5 g/dL 6.4 - 8.3 g/dL [facility] Sodium [Moles/Vol] 137 mmol/L 135 - 144 mmol/L [facility] Urea nitrogen [Mass/Vol] 8 mg/dL 6 - 20 mg/dL [facility] DRUG SCREEN MULTI URINEon Amphetamine Screen, Ur Negative NEGATIVE [facility] Comment on above: (Positive cutoff 1000 ng/mL) Barbiturate Screen, Ur Negative NEGATIVE [facility] Comment on above: (Positive cutoff 200 ng/mL) Benzodiazepine Screen, Urine Negative NEGATIVE [facility] Comment on above: (Positive cutoff 200 ng/mL) Cannabinoid Scrn, Ur Negative NEGATIVE [facility] Comment on above: (Positive cutoff 50 ng/mL) Cocaine Metabolite, Urine Negative NEGATIVE [facility] Comment on above: (Positive cutoff 300 ng/mL) Fentanyl, Ur Negative NEGATIVE [facility] Comment on above: (Positive cutoff 5 ng/ml) Methadone Screen, Urine Negative NEGATIVE [facility] Comment on above: (Positive cutoff 300 ng/mL) Opiates, Urine Negative NEGATIVE [facility] Comment on above: (Positive cutoff 300 ng/mL) Oxycodone Screen, Ur Negative NEGATIVE [facility] Comment on above: (Positive cutoff 100 ng/mL) Phencyclidine, Urine Negative NEGATIVE [facility] Comment on above: (Positive cutoff 25 ng/mL) Test Information Assay provides medic al screening only. The absence of expected drug(s) and/or metabolite(s) may indicate diluted or adulterated urine, limitations of testing or timing of collection. [facility] Comment on above: Testing for legal pu rposes should be confirmed by another method. To request confirmation of test result, please call the lab within 7 days of sample submission. [facility] GROUP B STREP CULTUREon 06-23 S. agalactiae Ag Ql (Unsp spec) Culture Observations: NEGATIVE FOR GROUP B STREPTOCOCCUS. Normal [facility] Comment on above: Performed By: #### [id number] #### [facility] [address] [place], [place] [address] Dr. Valeria Farris POC Glucose Fingerstickon Glucose [Mass/Vol] 116 mg/dL High 65 - 105 mg/dL [facility] Interpretation and review of laboratory results Abnormal [facility] Protein / creatinine ratio, urineon 07-20-2022 Creatinine, Ur 95.9 mg/dL 28.0 - 217.0 mg/dL [facility] Protein (U) [Mass/Vol] 17 mg/dL [facility] Comment on above: No normal range esta blished. Urine Total Protein Creatinine Ratio 0.18 0.00 - 0.20 [facility] T. pallidum Abon 07-20-2022 T. pallidum Ab IA Ql (S) Non-Reactive NONREACTIVE [facility] Comment on above: T. pallidum antibodies are not detected. There is no serological evidence of infection with T. pallidum (early primary syphilis cannot be excluded). Retest in 2-4 weeks if syphilis is clinically suspect. [facility] TYPE AND SCREENon 07-20-2022 ABO/Rh Positive [facility] [id number] [facility] Expiration Date 07/23/2022,235 [facility] US CHINYERE DOP LEG LTon 07-20-19 23 [...] by: GERARD GONZALEZ Date: 2022-07-19 15:06 Normal [facility] COVID + FLU Quick Testingon 07-18-2022 SARS-CoV-2 (COVID-19) RNA SARANYA+probe Ql (Unsp spec) Negative [employer] Other COVID + FLU Quick Testing Negative [employer] Other Quick Strepon 07-18-2022 S. pyogenes Org specific cx Ql (Throat) Negative [employer] Other [employer] Other US PREG BIOPHY W NON STRESSo [...] by: GERARD GONZALEZ Date: 2022-07-17 15:56 Normal [facility] Brain Natriuretic Peptideon 07-15-2022 Natriuretic peptide B (Bld) [Mass/Vol] pg/mL [facility] - 300 pg/mL [employer] Comment on above: An age-independent cutoff point of 300 pg/ml has a 98% negative predictive value excluding acute heart failure. [facility] Comprehensive metabolic pane jaylan 07-15-2022 Albumin [Mass/Vol] 3.4 g/dL Low 3.5 - 5.2 g/dL [facility] Albumin/Globulin [Mass ratio] 1.0 {ratio} 1.0 - 2.5 [facility] ALP [Catalytic activity/Vol] 138 U/L High 35 - 104 U/L [facility] ALT [Catalytic activity/Vol] 16 U/L 5 - 33 U/L [facility] Anion gap [Moles/Vol] 12 mmol/L 9 - 17 mmol/L [facility] AST [Catalytic activity/Vol] 23 U/L NINF - 32 U/L [facility] Bilirubin [Mass/Vol] mg/dL Low 0.3 - 1 .2 mg/dL [facility] Calcium [Mass/Vol] 8.9 mg/dL 8.6 - 10. 4 mg/dL [facility] Chloride [Moles/Vol] 102 mmol/L 98 - 10 7 mmol/L [facility] CO2 [Moles/Vol] 19 mmol/L Low 20 - 31 mmol/L [facility] Creatinine [Mass/Vol] 0.38 mg/dL Low 0.50 - 0.90 mg/dL [facility] GFR/1.73 sq M.predicted MDRD (S/P/Bld) [Vol rate/Area] - PINF [facility] Comment on above: These results are [...] mg/dL High 70 - 99 mg/dL [facility] Interpretation and review of laboratory results Abnormal [facility] Potassium [Moles/Vol] 3.5 mmol/L Low 3.7 - 5.3 mmol/L [facility] Protein [Mass/Vol] 6.7 g/dL 6.4 - 8.3 g/dL [facility] Sodium [Moles/Vol] 133 mmol/L Low 135 - 144 mmol/L [facility] Urea nitrogen [Mass/Vol] 9 mg/dL 6 - 20 mg/dL [facility] HIV Screenon 07-15-2022 HIV 1+2 Ab+HIV1 p24 Ag IA Ql Non-Reactive NONREACTIVE [facility] Comment on above: No laboratory eviden ce of HIV infection. If acute HIV infection is suspected, consider testing for HIV-1 RNA. [facility] Protein / Creatinine Ratio, Urineon 07-15-2022 Creatinine, Ur 33.5 mg/dL 28.0 - 217.0 mg/dL [facility] Protein (U) [Mass/Vol] 5 mg/dL [facility] Comment on above: No normal range esta blished. Urine Total Protein Creatinine Ratio 0.15 0.00 - 0.20 [facility] TYPE AND SCREENon 07-15-2022 ABO/Rh Positive [facility] Arm Band Number BE [id number] [facility] Expiration Date 07/18/2022,2359 [facility] Troponinon 07-15-2022 Troponin I.cardiac DL <= 0.01 ng/mL [Mass/Vol] ng/L 0 - 14 ng/L [facility] Comment on above: High Sensitivity Tro ponin values cannot be compared with other Troponin methodologies. [facility] XR CHEST (SINGLE VIEW FRONTA L)on 07-15-2022 No acute process. [facility] EXAMINATION: ONE XRAY VIEW OF THE CHEST 07/15/2022 4:26 pm COMPARISON: None. HISTORY: ORDERING SYSTEM PROVIDED HISTORY: shortness of breath TECHNOLOGIST PROVIDED HISTORY: Concerns for COVID shortness of breath FINDINGS: The lungs are without acute focal process. There is no effusion or pneumothorax. The cardiomediastinal silhouette is without acute process. The osseous structures are without acute process. [facility] Abner Dela Cruz MD - 07/15/2022 [...] without acute process. IMPRESSION: No acute process. [facility] [employer] Work Phone: Radiology Study observation (narrative) [facility] Work Phone: XR CHEST (SINGLE VIEW FRONTA L)Ordered By: Abner Dela Cruz on 07-15-2022 [facility] Work Phone: US PREG BIOPHY W NON [...] GERARD GONZALEZ Date: 2022-07-10 15:41 Normal [facility] US PREG BIOPHY W NON STRESSo [...] by: GERARD GONZALEZ Date: 2022-07-04 16:21 Normal [facility] UA (CLEAN/CATCH) PATIENT ACCOUNTS CLERK/MICRO I F IND.on 06-30-2022 Bilirubin Ql (U) Negative Normal NEGATIVE [facility] Comment on above: Performed By: #### [id number] #### [facility] [address] [place] [address] Dr. Valeria Farris Clarity (U) CLEAR Normal CLEAR [facility] Comment on above: Performed By: #### [id number] #### [facility] [address] [place] [address] Dr. Valeria Farris Color (U) LT. YELLOW Normal YELLOW [facility] Comment on above: Performed By: #### [id number] #### [facility] [address] [place] [address] Dr. Valeria Farris Glucose Ql (U) Negative Normal NEGATIVE [facility] Comment on above: Performed By: #### [id number] #### [facility] [address] [place] [address] Dr. Valeria Farris Hemoglobin Ql (U) LARGE Abnormal NEGATIVE [facility] Comment on above: Performed By: #### [id number] #### [facility] [address] [place] [address] Dr. Valeria Farris Ketones Ql (U) Negative Normal NEGATIVE [facility] Comment on above: Performed By: #### 4 [id number] #### [facility] [address] [place] [address] Dr. Valeria Farris LEUKOCYTES Negative Normal NEGATIVE [facility] Comment on above: Performed By: #### 4 [id number] #### [facility] [address] [place] [address] Dr. Valeria Farris Nitrite Ql (U) Negative Normal NEGATIVE [facility] Comment on above: Performed By: #### [id number] #### [facility] [address] [place] [address] Dr. Valeria Farris pH (U) 6.5 [pH] Normal 5-9 [facility] Comment on above: Performed By: #### 4 [id number] #### [facility] [address] [place] [address] Dr. Valeria Farris SPEC GRAVITY <=1.005 Abnormal 1.005-<=1.02 5 [facility] Comment on above: Performed By: #### 4 [id number] #### [facility] [address] [place] [address] Dr. Valeria Farris UA PROTEIN Negative Normal NEGATIVE/ TRACE [facility] Comment on above: Performed By: #### 4 [id number] #### [facility] [address] [place] [address] Dr. Valeria Farris UR MICRO IND INDICATED Normal [facility] Comment on above: Performed By: #### 4 [id number] #### [facility] [address] [place] [address] Dr. Valeria Farris Urobilinogen Qn (U) 0.2 {Manolo'U}/dL Normal 0.2 - 1. 0 [facility] Comment on above: Performed By: #### 4 [id number] #### [facility] [address] [place] [address] Dr. Valeria Farris URINE MICROSCOPIC ONLYon BACTERIA NONE SEEN Normal NONE SEEN [facility] Comment on above: Performed By: #### 4 [id number] #### [facility] [address] [place] [address] Dr. Valeria Farris Bacteria identified Cx Nom (U) NOT INDICATED Normal [facility] Comment on above: Performed By: #### [id number] #### [facility] [address] [place] [address] Dr. Valeria Farris CAST NONE SEEN Normal NONE SEEN [facility] Comment on above: Performed By: #### 4 [id number] #### [facility] [address] [place] [address] Dr. Valeria Farris Crystals LM Nom (Urine sed) NONE SEEN Normal NONE SEEN [facility] Comment on above: Performed By: #### 4 [id number] #### [facility] [address] [place] [address] Dr. Valeria Farris Epithelial cells LM Ql (Urine sed) FEW Abnormal NONE SEEN /RARE [facility] Comment on above: Performed By: #### 4 [id number] #### [facility] [address] [place] [address] Dr. Valeria Farris MUCOUS NONE SEEN Normal NONE SEEN [facility] Comment on above: Performed By: #### 4 [id number] #### [facility] [address] [place] [address] Dr. Valeria Farris RBC 5-10 Abnormal 0-2 [facility] Comment on above: Performed By: #### [id number] #### [facility] [address] [place] [address] Dr. aVleria Farris WBC 0-2 Abnormal NONE SEEN [facility] Comment on above: Performed By: #### 4 [id number] #### [facility] [address] [place] [address] Dr. Valeria Farris No Panel Informationon 06-29 [facility] T4, Freeon 06-29-2022 Free T4 [Mass/Vol] 0.82 ng/dL Low 0.93 - 1. 70 ng/dL [facility] Interpretation and review of laboratory results Abnormal [facility] TSHon 06-29-2022 TSH Qn 2.16 m[IU]/L [facility] US PREG BIOPHY W NON STRESSo [...] ALINE GALICIA Date: 2022-06-26 07:50 Normal [facility] US PREG BIOPHY W NON STRESSo [...] GERARD GONZALEZ Date: 2022-06-19 15:28 Normal [facility] CREATININE CLEARon 3 BODY SURF AREA 2.35 Normal [facility] Comment on above: Performed By: #### DAPHNE SUN #### [facility] [address] [address] [address] Valeria MAST CLEARANCE 128.94 ml/min Critically high 75.00-115.00 [facility] Comment on above: Performed By: #### DAPHNE SUN #### [facility] [address] [address] [address] Valeria MAST, 24 HR UR 882.73 mg/24 hr Normal 800.00-1,8 00 .00 [facility] Comment on above: Performed By: #### DAPHNE SUN #### [facility] [address] [place] [address] Dr. Valeria Farris Creatinine [Mass/Vol] 0.35 mg/dL Critically low 0.55-1.02 [facility] Comment on above: Performed By: #### U LETI ICRO #### [facility] [address] [place] [address] Dr. Valeria Farris URINE CREAT 21.53 mg/dL Normal 20.00-300.00 [facility] Comment on above: Performed By: #### [facility] #### [facility] [address] [place] [address] Dr. Valeria Farris PROTEIN 24HR URINEon 023 T PROT, 24 HR UR 241.9 mg/24 hr Critically high <=149.1 [facility] Comment on above: Performed By: #### P [id number] #### [facility] [address] [place] [address] Dr. Valeria Farris UR PROT 5.9 mg/dL Normal <=11.9 [facility] Comment on above: Performed By: #### P ROT24U #### [facility] [address] [place] [address] Dr. Valeria Farris UR TOT VOL 4100 ml/24 HR Normal [facility] Comment on above: Performed By: #### P [id number] #### [facility] [address] [place] [address] Dr. Valeria Farris Performed By: #### [facility] #### [facility] [address] [place] [address] Dr. Valeria Farris CBC AUTO DIFFon 06-17-2022 BASO # 0.0 103/ul Normal 0.0-0.1 [facility] Comment on above: Performed By: #### G LU1HR #### [facility] [address] [place] [address] Dr. Valeria Farris Basophils/100 WBC (Bld) 0.4 % Normal 0.2-2.0 [facility] Comment on above: Performed By: #### G LU1HR #### [facility] [address] [address] [address] Valeria Farris EO # 0.2 103/ul Normal 0.0-0.7 [facility] Comment on above: Performed By: #### G LU1HR #### [facility] [address] [address] [address] Valeria Farris Eosinophils/100 WBC (Bld) 2.0 % Normal 0.9-7.0 [facility] Comment on above: Performed By: #### G LU1HR #### [facility] [address] [place] [address] Dr. Valeria Farris Erythrocyte distribution width (RBC) [Ratio] 13.3 % Normal 11.0-15.0 [facility] Comment on above: Performed By: #### G LU1HR #### [facility] [address] [place] [address] Dr. Valeria Farris Hematocrit (Bld) [Volume fraction] 31.8 % Critically low 36.0-48.0 [facility] Comment on above: Performed By: #### G LU1HR #### [facility] [address] [place] [address] Dr. Valeria Farris Hemoglobin (Bld) [Mass/Vol] 10.8 g/dL Critically low 12.0-16.0 [facility] Comment on above: Performed By: #### G LU1HR #### [facility] [address] [place] [address] Dr. Valeria Farris IG # 0.09 10e3/ul Critically high 0.00-0.[address] [facility] Comment on above: Performed By: #### G LU1HR #### [facility] [address] [place] [address] Dr. Valeria Farris IG % 0.8 % Critically high 0.0-0.5 [facility] Comment on above: Performed By: #### G LU1HR #### [facility] [address] [place] [address] Dr. Valeria Farris LYMPH # 2.2 103/ul Normal 1.2-3.8 [facility] Comment on above: Performed By: #### G LU1HR #### [facility] [address] [address] [address] Valeria Farris Lymphocytes/100 WBC (Bld) 20.0 % Critically low 20.5-60.0 [facility] Comment on above: Performed By: #### G LU1HR #### [facility] [address] [place] [address] Dr. Valeria Farris MANUAL DIFF REQ NO Normal [facility] Comment on above: Performed By: #### G LU1HR #### [facility] [address] [place] [address] Dr. Valeria Farris MCH (RBC) [Entitic mass] 28.4 pg Normal 26.7-34.0 [facility] Comment on above: Performed By: #### G LU1HR #### [facility] [address] [place] [address] Dr. Valeria Farris MCHC (RBC) [Mass/Vol] 34.0 g/dL Normal 29.9-35.2 [facility] Comment on above: Performed By: #### G LU1HR #### [facility] [address] [place] [address] Dr. Valeria Farris MCV (RBC) [Entitic vol] 83.7 fL Normal 81.0-99.0 [facility] Comment on above: Performed By: #### G LU1HR #### [facility] [address] [place] [address] Dr. Valeria Farris MONO # 0.9 103/ul Critically high 0.3-0.8 [facility] Comment on above: Performed By: #### G LU1HR #### [facility] [address] [place] [address] Dr. Valeria Farris Monocytes/100 WBC (Bld) 7.9 % Normal 1.7-12.0 [facility] Comment on above: Performed By: #### G LU1HR #### [facility] [address] [place] [address] Dr. Valeria Farris NEUT # 7.7 103/ul Critically high 1.4-6.5 [facility] Comment on above: Performed By: #### G LU1HR #### [facility] [address] [place] [address] Dr. Valeria Farris Neutrophils/100 WBC (Bld) 68.9 % Normal 43.0-75.0 [facility] Comment on above: Performed By: #### G LU1HR #### [facility] [address] [place] [address] Dr. Valeria Farris Platelet mean volume (Bld) [Entitic vol] 10.7 fL Normal 9.5-13.5 [facility] Comment on above: Performed By: #### G LU1HR #### [facility] [address] [place] [address] Dr. Valeria Farris PLT 195 103/ul Normal 150-450 [facility] Comment on above: Performed By: #### G LU1HR #### [facility] [address] [place] [address] Dr. Valeria Farris RBC 3.80 106/ul Critically low 4.20-5.40 [facility] Comment on above: Performed By: #### G LU1HR #### [facility] [address] [place] [address] Dr. Valeria Farris WBC 11.2 103/ul Critically high 4.0-11.0 [facility] Comment on above: Performed By: #### G LU1HR #### [facility] [address] [place] [address] Dr. Valeria Farris LDHon 06-17-2022 LDH 230 U/L Normal 81-234 [facility] Comment on above: Performed By: #### P ROT24U #### [facility] [address] [place] [address] Dr. Valeria Farris PROF 14(COMP METB)on 023 Albumin [Mass/Vol] 2.6 g/dL Critically low 3.4-5.0 [facility] Comment on above: Performed By: #### P ROT24U #### [facility] [address] [place] [address] Dr. Valeria Farris Albumin/Globulin [Mass ratio] 0.6 {ratio} Normal [facility] Comment on above: Performed By: #### P ROT24U #### [facility] [address] [place] [address] Dr. Valeria Farris ALP [Catalytic activity/Vol] 112 U/L Normal 46-116 [facility] Comment on above: Performed By: #### P ROT24U #### [facility] [address] [place] [address] Dr. Valeria Farris ALT [Catalytic activity/Vol] 18 U/L Normal 14-59 [facility] Comment on above: Performed By: #### P ROT24U #### [facility] [address] [place] [address] Dr. Valeria Farris Anion gap [Moles/Vol] 13.1 mmol/L Normal [facility] Comment on above: Performed By: #### P ROT24U #### [facility] [address] [place] [address] Dr. Valeria Farris AST [Catalytic activity/Vol] 22 U/L Normal 15-37 [facility] Comment on above: Performed By: #### P ROT24U #### [facility] [address] [place] [address] Dr. Valeria Farris Bilirubin [Mass/Vol] 0.2 mg/dL Normal 0.2-1.0 [facility] Comment on above: Performed By: #### P ROT24U #### [facility] [address] [place] [address] Dr. Valeria Farris Calcium [Mass/Vol] 9.1 mg/dL Normal 8.5-10.1 [facility] Comment on above: Performed By: #### P ROT24U #### [facility] [address] [place] [address] Dr. Valeria Farris Chloride [Moles/Vol] 103 mmol/L Normal 98-107 [facility] Comment on above: Performed By: #### P ROT24U #### [facility] [address] [place] [address] Dr. Valeria Farris CO2 [Moles/Vol] 25.8 mmol/L Normal 21.0-32.0 [facility] Comment on above: Performed By: #### P ROT24U #### [facility] [address] [place] [address] Dr. Valeria Farris Creatinine [Mass/Vol] 0.35 mg/dL Critically low 0.55-1.02 [facility] Comment on above: Performed By: #### P ROT24U #### [facility] [address] [address] [address] Valeria Farris EGFR-AF JAPANESE >60 Normal >=60 [facility] Comment on above: Performed By: #### P ROT24U #### [facility] [address] [place] [address] Dr. Valeria Farris EGFR-NON AF JAPANESE >60 Normal >=60 [facility] Comment on above: Performed By: #### P ROT24U #### [facility] [address] [place] [address] Dr. Valeria Farris Globulin (S) [Mass/Vol] 4.2 g/dL Normal [facility] Comment on above: Performed By: #### P ROT24U #### [facility] [address] [place] [address] Dr. Valeria Farris Glucose [Mass/Vol] 80 mg/dL Normal 74-106 [facility] Comment on above: Performed By: #### P ROT24U #### [facility] [address] [place] [address] Dr. Valeria Farris Potassium [Moles/Vol] 3.9 mmol/L Normal 3.5-5.1 [facility] Comment on above: Performed By: #### P ROT24U #### [facility] [address] [place] [address] Dr. Valeria Farris Protein [Mass/Vol] 6.8 g/dL Normal 6.4-8.2 [facility] Comment on above: Performed By: #### P ROT24U #### [facility] [address] [place] [address] Dr. Valeria Farris Sodium [Moles/Vol] 138 mmol/L Normal 136-145 [facility] Comment on above: Performed By: #### P ROT24U #### [facility] [address] [place] [address] Dr. Valeria Farris Urea nitrogen [Mass/Vol] 10.0 mg/dL Normal 7.0-18.0 [facility] Comment on above: Performed By: #### P ROT24U #### [facility] [address] [place] [address] Dr. Valeria Farris Urea nitrogen/Creatinine [Mass ratio] 28.6 mg/mg Normal [facility] Comment on above: Performed By: #### P ROT24U #### [facility] [address] [place] [address] Dr. Valeria Farris PTTon 06-17-2022 aPTT Coag (Bld) [Time] 26.4 s Normal 22.3-36.2 [facility] Comment on above: Performed By: #### P REGQNT #### [facility] [address] [place] [address] Dr. Valeria Farris UA (CLEAN/CATCH) PATIENT ACCOUNTS CLERK/MICRO I F IND.on 06-17-2022 Bilirubin Ql (U) Negative Normal NEGATIVE [facility] Comment on above: Performed By: #### P REGQNT #### [facility] [address] [place] [address] Dr. Valeria Farris Clarity (U) CLEAR Normal CLEAR [facility] Comment on above: Performed By: #### P REGQNT #### [facility] [address] [place] [address] Dr. Valeria Farris Color (U) LT. YELLOW Normal YELLOW [facility] Comment on above: Performed By: #### P REGQNT #### [facility] [address] [place] [address] Dr. Valeria Farris Glucose Ql (U) Negative Normal NEGATIVE [facility] Comment on above: Performed By: #### P REGQNT #### [facility] [address] [place] [address] Dr. Valeria Farris Hemoglobin Ql (U) Negative Normal NEGATIVE [facility] Comment on above: Performed By: #### P REGQNT #### [facility] [address] [address] [address] Valeria Farris Ketones Ql (U) Negative Normal NEGATIVE [facility] Comment on above: Performed By: #### P REGQNT #### [facility] [address] [address] [address] Valeria Farris LEUKOCYTES Negative Normal NEGATIVE [facility] Comment on above: Performed By: #### P REGQNT #### [facility] [address] [address] [address] Valeria Farris Nitrite Ql (U) Negative Normal NEGATIVE [facility] Comment on above: Performed By: #### P REGQNT #### [facility] [address] [place] [address] Dr. Valeria Farris pH (U) 6.5 [pH] Normal 5-9 [facility] Comment on above: Performed By: #### P REGQNT #### [facility] [address] [place] [address] Dr. Valeria Farris SPEC GRAVITY 1.010 Normal 1.005-<=1.02 5 [facility] Comment on above: Performed By: #### P REGQNT #### [facility] [address] [place] [address] Dr. Valeria Farris UA PROTEIN Negative Normal NEGATIVE/ TRACE [facility] Comment on above: Performed By: #### P REGQNT #### [facility] [address] [address] [address] Valeria Farris UR MICRO IND NOT INDICATED Normal [facility] Comment on above: Performed By: #### P REGQNT #### [facility] [address] [address] [address] Valeria Farris Urobilinogen Qn (U) 0.2 {Manolo'U}/dL Normal 0.2 - 1. 0 [facility] Comment on above: Performed By: #### P REGQNT #### [facility] [address] [place] [address] Dr. Valeria Farris URIC ACID SERUMon 06-17-2022 Urate [Mass/Vol] 3.3 mg/dL Normal 2.6-6.0 [facility] Comment on above: Performed By: #### P [id number] #### [facility] [address] [place] [address] Dr. Valeria Farris PAP ACOG PANEL 2: 30 to 65on 05-29-2022 . . Normal [facility] Comment on above: Result Comment: Perf ormed at: WB Performed By: #### [id number] #### [facility] [address] [place] [address] Dr. Valeria Farris Age Gdln ACOG Testing 30-65 Normal [facility] Comment on above: Performed By: #### [id number] #### [facility] [address] [place] [address] Dr. Valeria Farris DIAGNOSIS: Comment Normal [facility] Comment on above: Result Comment: NEGA TIVE FOR INTRAEPITHELIAL LESION OR MALIGNANCY. Performed at: WB Performed By: #### [id number] #### [facility] [address] [place] [address] Dr. Valeria Farris HPV Aptima Negative Normal Negative [facility] Comment on above: Result Comment: This nucleic acid amplification test detects fourteen high-risk HPV types (16,18,31,33,35,39,45,51,52,56,58,59,66,68) without differentiation. Performed at: =G Performed By: #### [id number] #### [facility] [address] [place] [address] Dr. Valeria Farris HPV Genotype Reflex Comment Normal [facility] Comment on above: Result Comment: Crit eria not met, HPV Genotype not performed. Performed at: WB Performed By: #### [id number] #### [facility] [address] [place] [address] Dr. Valeria Farris Methodology: Comment Normal [facility] Comment on above: Result Comment: This liquid based ThinPrep(R) pap test was screened with the use of an image guided system. Performed at: WB Performed By: #### [id number] #### [facility] [address] [place] [address] Dr. Valeria Farris Note: Comment Normal [facility] Comment on above: Result [...] Performed at: WB Performed By: #### [id number] #### [facility] [address] [place] [address] Dr. Valeria Farris Performed by: Comment Normal [facility] Comment on above: Result Comment: Jaye Simmons, Patient Portal Representative (ASCP) Performed at: WB Performed By: #### [id number] #### [facility] [address] [place] [address] Dr. Valeria Farris Specimen adequacy: Comment Normal [facility] Comment on above: Result Comment: Sati sfactory for evaluation. Performed at: WB Performed By: #### [id number] #### [facility] [address] [place] [address] Dr. Valeria Farris POINT OF CARE GLUCOSEon 0 Glucose [Mass/Vol] 122 mg/dL Critically high 74-106 [facility] Comment on above: Performed By: #### U ACSIND, UMICRO #### [facility] [address] [place] [address] Dr. Valeria Farris UA (CLEAN/CATCH) PATIENT ACCOUNTS CLERK/MICRO I F IND.on 05-29-2022 Bilirubin Ql (U) Negative Normal NEGATIVE [facility] Comment on above: Performed By: #### U ACSIND, UMICRO #### [facility] [address] [place] [address] Dr. Valeria Farris Clarity (U) CLEAR Normal CLEAR [facility] Comment on above: Performed By: #### U ACSIND, UMICRO #### [facility] [address] [place] [address] Dr. Valeria Farris Color (U) LT. YELLOW Normal YELLOW [facility] Comment on above: Performed By: #### U ACSIND, UMICRO #### [facility] [address] [address] [address] Valeria Farris Glucose Ql (U) Negative Normal NEGATIVE [facility] Comment on above: Performed By: #### U ACSIND, UMICRO #### [facility] [address] [address] [address] Valeria Farris Hemoglobin Ql (U) TRACE-INTACT Abnormal NEGATIVE [facility] Comment on above: Performed By: #### U ACSIND, UMICRO #### [facility] [address] [address] [address] Valeria Farris Ketones Ql (U) Negative Normal NEGATIVE [facility] Comment on above: Performed By: #### U ACSIND, UMICRO #### [facility] [address] [place] [address] Dr. Valeria Farris LEUKOCYTES Negative Normal NEGATIVE [facility] Comment on above: Performed By: #### U ACSIND, UMICRO #### [facility] [address] [place] [address] Dr. Valeria Farris Nitrite Ql (U) Negative Normal NEGATIVE [facility] Comment on above: Performed By: #### U ACSIND, ICRO #### [facility] [address] [place] [address] Dr. Valeria Farris pH (U) 5.5 [pH] Normal 5-9 [facility] Comment on above: Performed By: #### U ACSIND, UMICRO #### [facility] [address] [address] [address] Valeria Farris SPEC GRAVITY 1.010 Normal 1.005-<=1.02 5 [facility] Comment on above: Performed By: #### U ACSIND, UMICRO #### [facility] [address] [place] [address] Dr. Valeria Farris UA PROTEIN Negative Normal NEGATIVE/ TRACE [facility] Comment on above: Performed By: #### U ACSIND, UMICRO #### [facility] [address] [place] [address] Dr. Valeria Farris UR MICRO IND INDICATED Normal [facility] Comment on above: Performed By: #### U ACSIND, UMICRO #### [facility] [address] [place] [address] Dr. Valeria Farris Urobilinogen Qn (U) 0.2 {Manolo'U}/dL Normal 0.2 - 1. 0 [facility] Comment on above: Performed By: #### U ACSIND, UMICRO #### [facility] [address] [place] [address] Dr. Valeria Farris URINE MICROSCOPIC ONLYon BACTERIA NONE SEEN Normal NONE SEEN [facility] Comment on above: Performed By: #### U ACSIND, UMICRO #### [facility] [address] [place] [address] Dr. Valeria Farris Bacteria identified Cx Nom (U) NOT INDICATED Normal [facility] Comment on above: Performed By: #### U ACSIND, UMICRO #### [facility] [address] [place] [address] Dr. Valeria Farris CAST NONE SEEN Normal NONE SEEN [facility] Comment on above: Performed By: #### U ACSIND, UMICRO #### [facility] [address] [place] [address] Dr. Valeria Farris Crystals LM Nom (Urine sed) NONE SEEN Normal NONE SEEN [facility] Comment on above: Performed By: #### U ACSIND, UMICRO #### [facility] [address] [place] [address] Dr. Valeria Farris Epithelial cells LM Ql (Urine sed) FEW Abnormal NONE SEEN /RARE [facility] Comment on above: Performed By: #### U ACSIND, UMICRO #### [facility] [address] [place] [address] Dr. Valeria Farris MUCOUS NONE SEEN Normal NONE SEEN [facility] Comment on above: Performed By: #### U ACSIND, UMICRO #### [facility] [address] [place] [address] Dr. Valeria Farris RBC 0-2 Normal 0-2 [facility] Comment on above: Performed By: #### U ACSTRUPTI, UMICRO #### [facility] [address] [place] [address] Dr. Valeria Farris WBC NONE SEEN Normal NONE SEEN [facility] Comment on above: Performed By: #### U ACSTRUPTI, UMICRO #### [facility] [address] [place] [address] Dr. Valeria Farris CHLAMYDIA/GONOCOCCUS SARANYA (SW AB/URINE/PAPon 05-26-2022 Chlamydia trachomatis, SARANYA Negative Normal Negative [facility] Comment on above: Performed By: #### 4 [id number] #### [facility] [address] [place] [address] Dr. Valeria Farris Neisseria gonorrhoeae, SARANYA Negative Normal Negative [facility] Comment on above: Performed By: #### 4 [id number] #### [facility] [address] [place] [address] Dr. Valeria Farris AMYLASEon 05-25-2022 Amylase [Catalytic activity/Vol] 30 U/L Normal 25-115 [facility] Comment on above: Performed By: #### P [id number] #### [facility] [address] [place] [address] Dr. Valeria Farris CARDIAC VERNON 3-6on 3 CK [Catalytic activity/Vol] 119 U/L Normal 26-192 [facility] Comment on above: Performed By: #### P [id number] #### [facility] [address] [place] [address] Dr. Valeria Farris CK.MB [Mass/Vol] ng/mL Normal <=3.60 [facility] Comment on above: Performed By: #### P ROT24U #### [facility] [address] [place] [address] Dr. Valeria Farris HSTROP <4.0 Normal 4.0-51.3 [facility] Comment on above: Result Comment: CUT- OFF POINTS HAVE BEEN ESTABLISHED BASED ON THE FOURTH UNIVERSAL DEFINITIONS OF MYOCARDIAL INFARCTION. THE UPPER REFERENCE LIMIT (URL) OF TROPONIN, DEFINED THE 99TH PERCENTILE OF cTnI DISTRIBUTION IN A REFERENCE POPULATION, HAS BEEN CONFIRMED THE DECISION THRESHOLD FOR OK DIAGNOSIS. Performed By: #### P [id number] #### [facility] [address] [address] [address] Valeria Farris CARDIAC VERNON ADMITon 023 CK [Catalytic activity/Vol] 121 U/L Normal 26-192 [facility] Comment on above: Performed By: #### P ROT24U #### [facility] [address] [place] [address] Dr. Valeria Farris CK.MB [Mass/Vol] 0.51 ng/mL Normal <=3.60 [facility] Comment on above: Performed By: #### P ROT24U #### [facility] [address] [place] [address] Dr. Valeria Farris HSTROP 4.1 pg/mL Normal 4.0-51.3 [facility] Comment on above: Result Comment: CUT- OFF POINTS HAVE BEEN ESTABLISHED BASED ON THE FOURTH UNIVERSAL DEFINITIONS OF MYOCARDIAL INFARCTION. THE UPPER REFERENCE LIMIT (URL) OF TROPONIN, DEFINED THE 99TH PERCENTILE OF cTnI DISTRIBUTION IN A REFERENCE POPULATION, HAS BEEN CONFIRMED THE DECISION THRESHOLD FOR OK DIAGNOSIS. Performed By: #### P [id number] #### [facility] [address] [place] [address] Dr. Valeria Farris MINI 19 ng/mL Normal 9-82 [facility] Comment on above: Performed By: #### P [id number] #### [facility] [address] [place] [address] Dr. Valeria Farris CBC AUTO DIFFon 05-25-2022 BASO # 0.0 103/ul Normal 0.0-0.1 [facility] Comment on above: Performed By: #### 4 [id number] #### [facility] [address] [place] [address] Dr. Valeria Farris Basophils/100 WBC (Bld) 0.2 % Normal 0.2-2.0 [facility] Comment on above: Performed By: #### 4 [id number] #### [facility] [address] [place] [address] Dr. Valeria Farris EO # 0.1 103/ul Normal 0.0-0.7 [facility] Comment on above: Performed By: #### 4 [id number] #### [facility] [address] [place] [address] Dr. Valeria Farris Eosinophils/100 WBC (Bld) 0.8 % Critically low 0.9-7.0 [facility] Comment on above: Performed By: #### 4 [id number] #### [facility] [address] [place] [address] Dr. Valeria Farris Erythrocyte distribution width (RBC) [Ratio] 13.5 % Normal 11.0-15.0 [facility] Comment on above: Performed By: #### 4 [id number] #### [facility] [address] [place] [address] Dr. Valeria Farris Hematocrit (Bld) [Volume fraction] 30.4 % Critically low 36.0-48.0 [facility] Comment on above: Performed By: #### 4 [id number] #### [facility] [address] [place] [address] Dr. Valeria Farris Hemoglobin (Bld) [Mass/Vol] 9.8 g/dL Critically low 12.0-16.0 [facility] Comment on above: Performed By: #### 4 [id number] #### [facility] [address] [place] [address] Dr. Valeria Farris IG # 0.21 10e3/ul Critically high 0.00-0.[address] [facility] Comment on above: Performed By: #### 4 [id number] #### [facility] [address] [place] [address] Dr. Valeria Farris IG % 1.6 % Critically high 0.0-0.5 [facility] Comment on above: Performed By: #### 4 [id number] #### [facility] [address] [place] [address] Dr. Valeria Farris LYMPH # 2.8 103/ul Normal 1.2-3.8 [facility] Comment on above: Performed By: #### 4 [id number] #### [facility] [address] [place] [address] Dr. Valeria Farris Lymphocytes/100 WBC (Bld) 21.3 % Normal 20.5-60.0 [facility] Comment on above: Performed By: #### 4 [id number] #### [facility] [address] [place] [address] Dr. Valeria Farris MANUAL DIFF REQ NO Normal [facility] Comment on above: Performed By: #### 4 [id number] #### [facility] [address] [place] [address] Dr. Valeria Farris MCH (RBC) [Entitic mass] 28.2 pg Normal 26.7-34.0 [facility] Comment on above: Performed By: #### 4 [id number] #### [facility] [address] [place] [address] Dr. Valeria Farris MCHC (RBC) [Mass/Vol] 32.2 g/dL Normal 29.9-35.2 [facility] Comment on above: Performed By: #### 4 [id number] #### [facility] [address] [place] [address] Dr. Valeria Farris MCV (RBC) [Entitic vol] 87.6 fL Normal 81.0-99.0 [facility] Comment on above: Performed By: #### 4 [id number] #### [facility] [address] [place] [address] Dr. Valeria Farris MONO # 0.9 103/ul Critically high 0.3-0.8 [facility] Comment on above: Performed By: #### 4 [id number] #### [facility] [address] [place] [address] Dr. Valeria Farris Monocytes/100 WBC (Bld) 6.8 % Normal 1.7-12.0 [facility] Comment on above: Performed By: #### 4 [id number] #### [facility] [address] [place] [address] Dr. Valeria Farris NEUT # 9.0 103/ul Critically high 1.4-6.5 [facility] Comment on above: Performed By: #### 4 [id number] #### [facility] [address] [place] [address] Dr. Valeria Farris Neutrophils/100 WBC (Bld) 69.3 % Normal 43.0-75.0 [facility] Comment on above: Performed By: #### 4 [id number] #### [facility] [address] [address] [address] Valeria Farris Platelet mean volume (Bld) [Entitic vol] 10.5 fL Normal 9.5-13.5 [facility] Comment on above: Performed By: #### 4 [id number] #### [facility] [address] [address] [address] Valeria Farris PLT 187 103/ul Normal 150-450 [facility] Comment on above: Performed By: #### 4 [id number] #### [facility] [address] [address] [address] Valeria Farris RBC 3.47 106/ul Critically low 4.20-5.40 [facility] Comment on above: Performed By: #### 4 [id number] #### [facility] [address] [address] [address] Valeria Farris WBC 13.0 103/ul Critically high 4.0-11.0 [facility] Comment on above: Performed By: #### 4 [id number] #### [facility] [address] [place] [address] Dr. Valeria Farris CTA CHEST WO W [...] Daryl LOPEZ Date: 2022-05-25 01:55 Normal [facility] CULTURE URINEon 05-25-2022 CULTURE URINE Culture Observations : HEAVY GROWTH OF MIXED GENITAL RIO. NO POTENTIAL PATHOGENS SEEN. Normal [facility] Comment on above: Performed By: #### 4 [id number] #### [facility] [address] [place] [address] Dr. Valeria Farris LIPASEon 05-25-2022 Lipase [Catalytic activity/Vol] 54.0 U/L Critically low 73.0-393.0 [facility] Comment on above: Performed By: #### P [id number] #### [facility] [address] [place] [address] Dr. Valeria Farris PROF 14(COMP METB)on 023 Albumin [Mass/Vol] 2.5 g/dL Critically low 3.4-5.0 [facility] Comment on above: Performed By: #### P [id number] #### [facility] [address] [place] [address] Dr. Valeria Farris Albumin/Globulin [Mass ratio] 0.6 {ratio} Normal [facility] Comment on above: Performed By: #### P [id number] #### [facility] [address] [place] [address] Dr. Valeria Farris ALP [Catalytic activity/Vol] 97 U/L Normal 46-116 [facility] Comment on above: Performed By: #### P [id number] #### [facility] [address] [place] [address] Dr. Valeria Farris ALT [Catalytic activity/Vol] 25 U/L Normal 14-59 [facility] Comment on above: Performed By: #### P [id number] #### [facility] [address] [address] [address] Valeria Farris Anion gap [Moles/Vol] 14.2 mmol/L Normal [facility] Comment on above: Performed By: #### P [id number] #### [facility] [address] [address] [address] Valeria Farris AST [Catalytic activity/Vol] 12 U/L Critically low 15-37 [facility] Comment on above: Performed By: #### P [id number] #### [facility] [address] [address] [address] Valeria Farris Bilirubin [Mass/Vol] 0.2 mg/dL Normal 0.2-1.0 [facility] Comment on above: Performed By: #### P ROT24U #### [facility] [address] [address] [address] Valeria Farris Calcium [Mass/Vol] 8.5 mg/dL Normal 8.5-10.1 [facility] Comment on above: Performed By: #### P [id number] #### [facility] [address] [address] [address] Valeria Farris Chloride [Moles/Vol] 103 mmol/L Normal 98-107 [facility] Comment on above: Performed By: #### P ROT24U #### [facility] [address] [address] [address] Valeria Farris CO2 [Moles/Vol] 23.0 mmol/L Normal 21.0-32.0 [facility] Comment on above: Performed By: #### P [id number] #### [facility] [address] [address] [address] Valeria Farris Creatinine [Mass/Vol] 0.39 mg/dL Critically low 0.55-1.02 [facility] Comment on above: Performed By: #### P ROT24U #### [facility] [address] [address] [address] Valeria Farris EGFR-AF JAPANESE >60 Normal >=60 [facility] Comment on above: Performed By: #### P [id number] #### [facility] [address] [address] [address] Valeria Farris EGFR-NON AF JAPANESE >60 Normal >=60 [facility] Comment on above: Performed By: #### P [id number] #### [facility] [address] [address] [address] Valeria Farris Globulin (S) [Mass/Vol] 4.0 g/dL Normal [facility] Comment on above: Performed By: #### P ROT24U #### [facility] [address] [address] [address] Valeria Farris Glucose [Mass/Vol] 113 mg/dL Critically high 74-106 [facility] Comment on above: Performed By: #### P ROT24U #### [facility] [address] [address] [address] Valeria Farris Potassium [Moles/Vol] 3.2 mmol/L Critically low 3.5-5.1 [facility] Comment on above: Performed By: #### P ROT24U #### [facility] [address] [address] [address] Valeria Farris Protein [Mass/Vol] 6.5 g/dL Normal 6.4-8.2 [facility] Comment on above: Performed By: #### P ROT24U #### [facility] [address] [address] [address] Valeria Farris Sodium [Moles/Vol] 137 mmol/L Normal 136-145 [facility] Comment on above: Performed By: #### P ROT24U #### [facility] [address] [address] [address] Valeria Farris Urea nitrogen [Mass/Vol] 8.0 mg/dL Normal 7.0-18.0 [facility] Comment on above: Performed By: #### P ROT24U #### [facility] [address] [address] [address] Valeria Farris Urea nitrogen/Creatinine [Mass ratio] 20.5 mg/mg Normal [facility] Comment on above: Performed By: #### P ROT24U #### [facility] [address] [place] [address] Dr. Valeria Farris UA (CLEAN/CATCH) PATIENT ACCOUNTS CLERK/MICRO I F IND.on 05-25-2022 Bilirubin Ql (U) Negative Normal NEGATIVE [facility] Comment on above: Performed By: #### G LU1HR #### [facility] [address] [place] [address] Dr. Valeria Farris Clarity (U) CLEAR Normal CLEAR [facility] Comment on above: Performed By: #### G LU1HR #### [facility] [address] [place] [address] Dr. Valeria Farris Color (U) YELLOW Normal YELLOW [facility] Comment on above: Performed By: #### G LU1HR #### [facility] [address] [place] [address] Dr. Valeria Farris Glucose Ql (U) Negative Normal NEGATIVE [facility] Comment on above: Performed By: #### G LU1HR #### [facility] [address] [place] [address] Dr. Valeria Farris Hemoglobin Ql (U) TRACE-INTACT Abnormal NEGATIVE [facility] Comment on above: Performed By: #### G LU1HR #### [facility] [address] [place] [address] Dr. Valeria Farris Ketones Ql (U) TRACE Abnormal NEGATIVE [facility] Comment on above: Performed By: #### G LU1HR #### [facility] [address] [place] [address] Dr. Valeria Farris LEUKOCYTES Negative Normal NEGATIVE [facility] Comment on above: Performed By: #### G LU1HR #### [facility] [address] [place] [address] Dr. Valeria Farris Nitrite Ql (U) Negative Normal NEGATIVE [facility] Comment on above: Performed By: #### G LU1HR #### [facility] [address] [place] [address] Dr. Valeria Farris pH (U) 6.0 [pH] Normal 5-9 [facility] Comment on above: Performed By: #### G LU1HR #### [facility] [address] [place] [address] Dr. Valeria Farris SPEC GRAVITY >=1.030 Abnormal 1.005-<=1.02 5 [facility] Comment on above: Performed By: #### G LU1HR #### [facility] [address] [place] [address] Dr. Valeria Farris UA PROTEIN Negative Normal NEGATIVE/ TRACE [facility] Comment on above: Performed By: #### G LU1HR #### [facility] [address] [place] [address] Dr. Valeria Farris UR MICRO IND INDICATED Normal [facility] Comment on above: Performed By: #### G LU1HR #### [facility] [address] [place] [address] Dr. Valeria Farris Urobilinogen Qn (U) 0.2 {Manolo'U}/dL Normal 0.2 - 1. 0 [facility] Comment on above: Performed By: #### G LU1HR #### [facility] [address] [place] [address] Dr. Valeria Farris URINE MICROSCOPIC ONLYon BACTERIA SMALL Abnormal NONE SEEN [facility] Comment on above: Performed By: #### G LU1HR #### [facility] [address] [place] [address] Dr. Valeria Farris Bacteria identified Cx Nom (U) INDICATED Normal [facility] Comment on above: Performed By: #### G LU1HR #### [facility] [address] [place] [address] Dr. Valeria Farris CA OX CRYSTALS FEW Normal [facility] Comment on above: Performed By: #### G LU1HR #### [facility] [address] [place] [address] Dr. Valeria Farris CAST NONE SEEN Normal NONE SEEN [facility] Comment on above: Performed By: #### G LU1HR #### [facility] [address] [place] [address] Dr. Valeria Farris Crystals LM Nom (Urine sed) SEEN Abnormal NONE SEEN [facility] Comment on above: Performed By: #### G LU1HR #### [facility] [address] [place] [address] Dr. Valeria Farris Epithelial cells LM Ql (Urine sed) MANY Abnormal NONE SEEN /RARE [facility] Comment on above: Performed By: #### G LU1HR #### [facility] [address] [place] [address] Dr. Valeria Farris MUCOUS TRACE Abnormal NONE SEEN [facility] Comment on above: Performed By: #### G LU1HR #### [facility] [address] [place] [address] Dr. Valeria Farris RBC 2-5 Abnormal 0-2 [facility] Comment on above: Performed By: #### G LU1HR #### [facility] [address] [place] [address] Dr. Valeria Farris WBC NONE SEEN Normal NONE SEEN [facility] Comment on above: Performed By: #### G LU1HR #### [facility] [address] [place] [address] Dr. Valeria Farris VAGINITIS/VAGINOSIS DNA PROB Sam 05-25-2022 Litzy species Negative Normal Negative [facility] Comment on above: Performed By: #### P REGQNT #### [facility] [address] [place] [address] Dr. Valeria Farris Gardnerella vaginalis Positive Abnormal Negative [facility] Comment on above: Performed By: #### P REGQNT #### [facility] [address] [place] [address] Dr. Valeria Farris Trichomonas vaginalis Negative Normal Negative [facility] Comment on above: Performed By: #### P REGQNT #### [facility] [address] [place] [address] Dr. Valeria Farris UA (CLEAN/CATCH) PATIENT ACCOUNTS CLERK/MICRO I F IND.on 05-04-2022 Bilirubin Ql (U) Negative Normal NEGATIVE [facility] Comment on above: Performed By: #### P REGQNT #### [facility] [address] [place], [place] [id number] Dr. Valeria Farris Clarity (U) CLEAR Normal CLEAR [facility] Comment on above: Performed By: #### P REGQNT #### [facility] [address] [place] [address] Dr. Valeria Farris Color (U) LT. YELLOW Normal YELLOW [facility] Comment on above: Performed By: #### P REGQNT #### [facility] [address] [place] [address] Dr. Valeria Farris Glucose Ql (U) Negative Normal NEGATIVE [facility] Comment on above: Performed By: #### P REGQNT #### [facility] [address] [place] [address] Dr. Valeria Farris Hemoglobin Ql (U) SMALL Abnormal NEGATIVE [facility] Comment on above: Performed By: #### P REGQNT #### [facility] [address] [place] [address] Dr. Valeria Farris Ketones Ql (U) TRACE Abnormal NEGATIVE [facility] Comment on above: Performed By: #### P REGQNT #### [facility] [address] [place] [address] Dr. Valeria Farris LEUKOCYTES Negative Normal NEGATIVE [facility] Comment on above: Performed By: #### P REGQNT #### [facility] [address] [place] [address] Dr. Valeria Farris Nitrite Ql (U) Negative Normal NEGATIVE [facility] Comment on above: Performed By: #### P REGQNT #### [facility] [address] [place] [address] Dr. Valeria Farris pH (U) 6.5 [pH] Normal 5-9 [facility] Comment on above: Performed By: #### P REGQNT #### [facility] [address] [place] [address] Dr. Valeria Farris SPEC GRAVITY 1.025 Normal 1.005-<=1.02 5 [facility] Comment on above: Performed By: #### P REGQNT #### [facility] [address] [place] [address] Dr. Valeria Farris UA PROTEIN Negative Normal NEGATIVE/ TRACE [facility] Comment on above: Performed By: #### P REGQNT #### [facility] [address] [place] [address] Dr. Valeria Farris UR MICRO IND INDICATED Normal [facility] Comment on above: Performed By: #### P REGQNT #### [facility] [address] [place] [address] Dr. Valeria Farris Urobilinogen Qn (U) 0.2 {Manolo'U}/dL Normal 0.2 - 1. 0 [facility] Comment on above: Performed By: #### P REGQNT #### [facility] [address] [place] [address] Dr. Valeria Farris URINE MICROSCOPIC ONLYon BACTERIA NONE SEEN Normal NONE SEEN [facility] Comment on above: Performed By: #### U ACSIND, UMICRO #### [facility] [address] [place] [address] Dr. Valeria Farris Bacteria identified Cx Nom (U) NOT INDICATED Normal [facility] Comment on above: Performed By: #### U ACSIND, UMICRO #### [facility] [address] [place] [address] Dr. Valeria Farris CAST NONE SEEN Normal NONE SEEN [facility] Comment on above: Performed By: #### U ACSIND, UMICRO #### [facility] [address] [place] [address] Dr. Valeria Farris Crystals LM Nom (Urine sed) NONE SEEN Normal NONE SEEN [facility] Comment on above: Performed By: #### U ACSIND, UMICRO #### [facility] [address] [place] [address] Dr. Valeria Farris Epithelial cells LM Ql (Urine sed) FEW Abnormal NONE SEEN /RARE [facility] Comment on above: Performed By: #### U ACSIND, UMICRO #### [facility] [address] [place] [address] Dr. Valeria Farris MUCOUS TRACE Abnormal NONE SEEN [facility] Comment on above: Performed By: #### U ACSIND, UMICRO #### [facility] [address] [place] [address] Dr. Valeria Farris RBC 0-2 Normal 0-2 [facility] Comment on above: Performed By: #### U ACSZAID LYLESICRO #### [facility] [address] [place] [address] Dr. Valeria Farris WBC NONE SEEN Normal NONE SEEN [facility] Comment on above: Performed By: #### [facility] #### [facility] [address] [place] [address] Dr. Valeria Farris AMYLASEon 04-12-2022 Amylase [Catalytic activity/Vol] 31 U/L Normal 25-115 [facility] Comment on above: Performed By: #### G LU1HR #### [facility] [address] [place] [address] Dr. Valeria Farris BUNon 04-12-2022 Urea nitrogen [Mass/Vol] 7.0 mg/dL Normal 7.0-18.0 [facility] Comment on above: Performed By: #### G LU1HR #### [facility] [address] [place] [address] Dr. Valeria Farris CBC AUTO DIFFon 04-12-2022 BASO # 0.0 103/ul Normal 0.0-0.1 [facility] Comment on above: Performed By: #### P REGQNT #### [facility] [address] [place] [address] Dr. Valeria Farris Basophils/100 WBC (Bld) 0.3 % Normal 0.2-2.0 [facility] Comment on above: Performed By: #### P REGQNT #### [facility] [address] [place] [address] Dr. Valeria Farris EO # 0.3 103/ul Normal 0.0-0.7 [facility] Comment on above: Performed By: #### P REGQNT #### [facility] [address] [place] [address] Dr. Valeria Farris Eosinophils/100 WBC (Bld) 2.3 % Normal 0.9-7.0 [facility] Comment on above: Performed By: #### P REGQNT #### [facility] [address] [address] [address] Valeria Farris Erythrocyte distribution width (RBC) [Ratio] 12.8 % Normal 11.0-15.0 [facility] Comment on above: Performed By: #### P REGQNT #### [facility] [address] [place] [address] Dr. Valeria Farris Hematocrit (Bld) [Volume fraction] 34.9 % Critically low 36.0-48.0 [facility] Comment on above: Performed By: #### P REGQNT #### [facility] [address] [address] [address] Valeria Farris Hemoglobin (Bld) [Mass/Vol] 11.8 g/dL Critically low 12.0-16.0 [facility] Comment on above: Performed By: #### P REGQNT #### [facility] [address] [place] [address] Dr. Valeria Farris IG # 0.08 10e3/ul Critically high 0.00-0.[address] [facility] Comment on above: Performed By: #### P REGQNT #### [facility] [address] [place] [address] Dr. Valeria Farris IG % 0.7 % Critically high 0.0-0.5 [facility] Comment on above: Performed By: #### P REGQNT #### [facility] [address] [address] [address] Valeria Farris LYMPH # 2.6 103/ul Normal 1.2-3.8 [facility] Comment on above: Performed By: #### P REGQNT #### [facility] [address] [place] [address] Dr. Valeria Farris Lymphocytes/100 WBC (Bld) 22.4 % Normal 20.5-60.0 [facility] Comment on above: Performed By: #### P REGQNT #### [facility] [address] [place] [address] Dr. Valeria Farris MANUAL DIFF REQ NO Normal [facility] Comment on above: Performed By: #### P REGQNT #### [facility] [address] [place] [address] Dr. Valeria Farris MCH (RBC) [Entitic mass] 28.5 pg Normal 26.7-34.0 [facility] Comment on above: Performed By: #### P REGQNT #### [facility] [address] [place] [address] Dr. Valeria Farris MCHC (RBC) [Mass/Vol] 33.8 g/dL Normal 29.9-35.2 [facility] Comment on above: Performed By: #### P REGQNT #### [facility] [address] [place] [address] Dr. Valeria Farris MCV (RBC) [Entitic vol] 84.3 fL Normal 81.0-99.0 [facility] Comment on above: Performed By: #### P REGQNT #### [facility] [address] [place] [address] Dr. Valeria Farris MONO # 0.8 103/ul Normal 0.3-0.8 [facility] Comment on above: Performed By: #### P REGQNT #### [facility] [address] [place] [address] Dr. Valeria Farris Monocytes/100 WBC (Bld) 6.8 % Normal 1.7-12.0 [facility] Comment on above: Performed By: #### P REGQNT #### [facility] [address] [place] [address] Dr. Valeria Farris NEUT # 7.8 103/ul Critically high 1.4-6.5 [facility] Comment on above: Performed By: #### P REGQNT #### [facility] [address] [place] [address] Dr. Valeria Farris Neutrophils/100 WBC (Bld) 67.5 % Normal 43.0-75.0 [facility] Comment on above: Performed By: #### P REGQNT #### [facility] [address] [place] [address] Dr. Valeria Farris Platelet mean volume (Bld) [Entitic vol] 10.3 fL Normal 9.5-13.5 [facility] Comment on above: Performed By: #### P REGQNT #### [facility] [address] [place] [address] Dr. Valeria Farris PLT 195 103/ul Normal 150-450 [facility] Comment on above: Performed By: #### P REGQNT #### [facility] [address] [place] [address] Dr. Valeria Farris RBC 4.14 106/ul Critically low 4.20-5.40 [facility] Comment on above: Performed By: #### P REGQNT #### [facility] [address] [place] [address] Dr. Valeria Farris WBC 11.5 103/ul Critically high 4.0-11.0 [facility] Comment on above: Performed By: #### P REGQNT #### [facility] [address] [place] [address] Dr. Valeria Farris CREATININEon 04-12-2022 Creatinine [Mass/Vol] 0.44 mg/dL Critically low 0.55-1.02 [facility] Comment on above: Performed By: #### G LU1HR #### [facility] [address] [place] [address] Dr. Valeria Farris EGFR-AF JAPANESE >60 Normal >=60 [facility] Comment on above: Performed By: #### G LU1HR #### [facility] [address] [place] [address] Dr. Valeria Farris EGFR-NON AF JAPANESE >60 Normal >=60 [facility] Comment on above: Performed By: #### G LU1HR #### [facility] [address] [place] [address] Dr. Valeria Farris LIPASEon 04-12-2022 Lipase [Catalytic activity/Vol] 62.0 U/L Critically low 73.0-393.0 [facility] Comment on above: Performed By: #### G LU1HR #### [facility] [address] [place] [address] Dr. Vlaeria Farris LIVER PROFILEon 04-12-2022 Albumin [Mass/Vol] 2.9 g/dL Critically low 3.4-5.0 [facility] Comment on above: Performed By: #### G LU1HR #### [facility] [address] [address] [address] Valeria Farris Albumin/Globulin [Mass ratio] 0.7 {ratio} Normal [facility] Comment on above: Performed By: #### G LU1HR #### [facility] [address] [address] [address] Valeria Farris ALP [Catalytic activity/Vol] 86 U/L Normal 46-116 [facility] Comment on above: Performed By: #### G LU1HR #### [facility] [address] [place] [address] Dr. Valeria Farris ALT [Catalytic activity/Vol] 14 U/L Normal 14-59 [facility] Comment on above: Performed By: #### G LU1HR #### [facility] [address] [place] [address] Dr. Valeria Farris AST [Catalytic activity/Vol] 12 U/L Critically low 15-37 [facility] Comment on above: Performed By: #### G LU1HR #### [facility] [address] [place] [address] Dr. Valeria Farris BILI, CONJUGATED 0.1 mg/dL Normal 0.0-0.2 [facility] Comment on above: Performed By: #### G LU1HR #### [facility] [address] [address] [address] Valeria Farris Bilirubin [Mass/Vol] 0.2 mg/dL Normal 0.2-1.0 [facility] Comment on above: Performed By: #### G LU1HR #### [facility] [address] [place] [address] Dr. Valeria Farris Globulin (S) [Mass/Vol] 4.2 g/dL Normal [facility] Comment on above: Performed By: #### G LU1HR #### [facility] [address] [address] [address] Valeria Farris Protein [Mass/Vol] 7.1 g/dL Normal 6.4-8.2 [facility] Comment on above: Performed By: #### G LU1HR #### [facility] [address] [place] [address] Dr. Valeria Farris PROF 14(COMP METB)on 022 Anion gap [Moles/Vol] 13.1 mmol/L Normal [facility] Comment on above: Performed By: #### G LU1HR #### [facility] [address] [address] [address] Valeria Farris Calcium [Mass/Vol] 8.7 mg/dL Normal 8.5-10.1 [facility] Comment on above: Performed By: #### G LU1HR #### [facility] [address] [place] [address] Dr. Valeria Farris Chloride [Moles/Vol] 100 mmol/L Normal 98-107 [facility] Comment on above: Performed By: #### G LU1HR #### [facility] [address] [address] [address] Valeria Farris CO2 [Moles/Vol] 25.4 mmol/L Normal 21.0-32.0 [facility] Comment on above: Performed By: #### G LU1HR #### [facility] [address] [place] [address] Dr. Valeria Farris Glucose [Mass/Vol] 87 mg/dL Normal 74-106 [facility] Comment on above: Performed By: #### G LU1HR #### [facility] [address] [address] [address] Valeria Farris Potassium [Moles/Vol] 3.5 mmol/L Normal 3.5-5.1 [facility] Comment on above: Performed By: #### G LU1HR #### [facility] [address] [address] [address] Valeria Farris Sodium [Moles/Vol] 135 mmol/L Critically low 136-145 [facility] Comment on above: Performed By: #### G LU1HR #### [facility] [address] [address] [address] Valeria Farris Urea nitrogen/Creatinine [Mass ratio] 15.9 mg/mg Normal [facility] Comment on above: Performed By: #### G LU1HR #### [facility] [address] [address] [address] Valeria Farris US PREG CERVICAL LENGTHon [...] GERARD GONZALEZ Date: 2022-04-12 16:39 Normal [facility] UA (CLEAN/CATCH) PATIENT ACCOUNTS CLERK/MICRO I F IND.on 04-11-2022 Bilirubin Ql (U) Negative Normal NEGATIVE [facility] Comment on above: Performed By: #### U LETI UMICRO #### [facility] [address] [place] [address] Dr. Valeria Farris Clarity (U) CLEAR Normal CLEAR [facility] Comment on above: Performed By: #### U ACSTRUPTI UMICRO #### [facility] [address] [address] [address] Valeria Farris Color (U) LT. YELLOW Normal YELLOW [facility] Comment on above: Performed By: #### U ACSTRUPTI UMICRO #### [facility] [address] [place] [address] Dr. Valeria Farris Glucose Ql (U) Negative Normal NEGATIVE [facility] Comment on above: Performed By: #### U ACSTRUPTI UMICRO #### [facility] [address] [place] [address] Dr. Valeria Farris Hemoglobin Ql (U) TRACE-INTACT Abnormal NEGATIVE [facility] Comment on above: Performed By: #### U ACSIND, UMICRO #### [facility] [address] [address] [address] Valeria Farris Ketones Ql (U) Negative Normal NEGATIVE [facility] Comment on above: Performed By: #### U ACSIND, UMICRO #### [facility] [address] [place] [address] Dr. Valeria Farris LEUKOCYTES Negative Normal NEGATIVE [facility] Comment on above: Performed By: #### U ACSIND, UMICRO #### [facility] [address] [address] [address] Valeria Farris Nitrite Ql (U) Negative Normal NEGATIVE [facility] Comment on above: Performed By: #### U ACSIND, UMICRO #### [facility] [address] [place] [address] Dr. Valeria Farris pH (U) 6.5 [pH] Normal 5-9 [facility] Comment on above: Performed By: #### U ACSTRUPTI, UMICRO #### [facility] [address] [place] [address] Dr. Valeria Farris SPEC GRAVITY 1.010 Normal 1.005-<=1.02 5 [facility] Comment on above: Performed By: #### U ACSTRUPTI, UMICRO #### [facility] [address] [place] [address] Dr. Valeria Farris UA PROTEIN Negative Normal NEGATIVE/ TRACE [facility] Comment on above: Performed By: #### U ACSTRUPTI, UMICRO #### [facility] [address] [place] [address] Dr. Valeria Farris UR MICRO IND INDICATED Normal [facility] Comment on above: Performed By: #### U ACSTRUPTI, UMICRO #### [facility] [address] [place] [address] Dr. Valeria Farris Urobilinogen Qn (U) 0.2 {Manolo'U}/dL Normal 0.2 - 1. 0 [facility] Comment on above: Performed By: #### U ACSIND, UMICRO #### [facility] [address] [address] [address] Valeria Farris URINE MICROSCOPIC ONLYon BACTERIA NONE SEEN Normal NONE SEEN [facility] Comment on above: Performed By: #### U ACSTRUPTI, UMICRO #### [facility] [address] [address] [address] Valeria Farris Bacteria identified Cx Nom (U) NOT INDICATED Normal [facility] Comment on above: Performed By: #### U ACSIND, UMICRO #### [facility] [address] [place] [address] Dr. Valeria Farris CAST NONE SEEN Normal NONE SEEN [facility] Comment on above: Performed By: #### U ACSIND, UMICRO #### [facility] [address] [place] [address] Dr. Valeria Farris Crystals LM Nom (Urine sed) NONE SEEN Normal NONE SEEN [facility] Comment on above: Performed By: #### U ACSTRUPTI, UMICRO #### [facility] [address] [place] [address] Dr. Valeria Farris Epithelial cells LM Ql (Urine sed) FEW Abnormal NONE SEEN /RARE [facility] Comment on above: Performed By: #### U ACSTRUPTI, UMICRO #### [facility] [address] [place] [address] Dr. Valeria Farris MUCOUS NONE SEEN Normal NONE SEEN [facility] Comment on above: Performed By: #### U ACSTRUPTI UMICRO #### [facility] [address] [place] [address] Dr. Valeria Farris RBC 0-2 Normal 0-2 [facility] Comment on above: Performed By: #### U ACSTRUPTI UMICRO #### [facility] [address] [place] [address] Dr. Valeria Farris WBC 0-2 Abnormal NONE SEEN [facility] Comment on above: Performed By: #### U ACSTRUPTI, UMICRO #### [facility] [address] [place] [address] Dr. Valeria Farris US PREG ANATOMY SINGLEon [...] ALINE GALICIA Date: 2022-03-28 10:57 Normal [facility] XR SHOULDER RT 2V or >on XR SHOULDER RT 2V or > EXAM: XR SHOULDER RT 2V or > INDICATION: Pain. COMPARISON: None. TECHNIQUE: Right shoulder, 3 views. FINDINGS: No acute fracture or dislocation. Intact glenohumeral and acromioclavicular joints. Unremarkable soft tissues. IMPRESSION: Normal right shoulder. Electronically authenticated by: GILDARDO TAYLOR Date: 2022-03-19 08:36 Normal [facility] AFP TETRA PROFILE (MATERNAL) on 03-08-2022 AFP MoM 0.60 Normal [facility] Comment on above: Performed By: #### U LETI UMICRO #### [facility] [address] [address] [address] Valeria Farris AFP Value 15.2 ng/mL Normal [facility] Comment on above: Performed By: #### U LETI UMICRO #### [facility] [address] [address] [address] Valeria Farris Comment Comment Normal [facility] Comment on above: Result Comment: Nicolás Ramirez, Ph.D., [facility] Director . References: Available Upon Request. . Multiples Of Median Cutoffs Abbreviation Definitions For AFP Elevations IDD- Insulin Dep Diabetes Rodriguez 2.5 Black 2.8 OSBR- Open Spina Bifida IDD 2.0 Twins 4.5 Risk DSR Cutoff 1:270 DSR- Down Syndrome Risk T18 Cutoff 1:100 T18- Trisomy 18 . For further inquiries contact [employer] [facility] at [phone]. . This test was developed and its performance characteristics determined by [employer]. It has not been cleared or approved by the Food and Drug Administration. Performed By: #### U LETI UMICRO #### [facility] [address] [address] [address] Valeria Farris CHACE MoM 0.90 Normal [facility] Comment on above: Performed By: #### U LETI UMICRO #### [facility] [address] [address] [address] Valeria Farris CHACE Value 95.93 pg/mL Normal [facility] Comment on above: Performed By: #### U LETI UMICRO #### [facility] [address] [address] [address] Valeria Farris DSR (By Age) 1 [place] 656 Normal [facility] Comment on above: Performed By: #### U LETI UMICRO #### [facility] [address] [address] [address] Valeria Farris DSR (Second Trimester) 1 [place] 5782 Normal [facility] Comment on above: Performed By: #### U LETI UMICRO #### [facility] [address] [address] [address] Valeria Archibald. Age on Collection Date 16.7 WEEKS Normal [facility] Comment on above: Performed By: #### U LETI UMICRO #### [facility] [address] [address] [address] Valeria Archibaldat. Age Based On SUNSHINE Normal [facility] Comment on above: Result Comment: 07/23 Performed By: #### U ACSTRUPTI UMICRO #### [facility] [address] [address] [address] Valeria Farris hCG MoM 0.61 Normal [facility] Comment on above: Performed By: #### U LETI UMICRO #### [facility] [address] [address] [address] [address] m[IU]/mL Normal [facility] Comment on above: Performed By: #### U LETI UMICRO #### [facility] [address] [address] [address] Valeria Farris Insulin Dep Diabetes No Normal [facility] Comment on above: Performed By: #### U ACSTRUPTI UMICRO #### [facility] [address] [address] [address] Valeria Farris Interpretation Comment Normal [facility] Comment on above: Result Comment: Inte [...] identifies 60% of Trisomy 18 pregnancies. The [employer] recommends amniocentesis be offered to women age 35 and older. Recalculations are not recommended when gestational dating by LMP and ultrasound are within 10 days. Performed By: #### U ACSIND, UMICRO #### [facility] [address] [address] [address] Valeria Farris M[age]SHINE 32.[address] [facility] Comment on above: Performed By: #### U ACSIND, UMICRO #### [facility] [address] [address] [address] Valeria Farris Multiple Gestation No Normal [facility] Comment on above: Performed By: #### U ACSIND, UMICRO #### [facility] [address] [address] [address] Valeria Farris [place] [address] Normal [facility] Comment on above: Performed By: #### U ACSIND, UMICRO #### [facility] [address] [address] [address] Valeria Farris PDF . [facility] Comment on above: Performed By: #### U ACSTRUPTI, UMICRO #### [facility] [address] [address] [address] Valeria Farris Race [facility] Comment on above: Performed By: #### U ACSTRUPTI, UMICRO #### [facility] [address] [address] [address] Valeria Farris Results Report [facility] & [facility] Comment on above: Performed By: #### U ACSIND, UMICRO #### [facility] [address] [address] [address] Valeria Farris T18 (By Age) 1:2556 Normal [facility] Comment on above: Performed By: #### U ACSIND, UMICRO #### [facility] [address] [address] [address] Valeria Farris T18 Risk Not increased [facility] Comment on above: Performed By: #### U ACSIND, UMICRO #### [facility] [address] [address] [address] Valeria Farris Test Results: Negative Normal [facility] Comment on above: Performed By: #### U ACSIND, UMICRO #### [facility] [address] [address] [address] Valeria Farris uE3 MoM 0.75 Normal [facility] Comment on above: Performed By: #### U DAPHNE LANDEROS #### [facility] [address] [address] [address] Valeria Farris uE3 Value 0.71 ng/mL Normal [facility] Comment on above: Performed By: #### U ALEX LANDEROSRO #### [facility] [address] [place] [address] Dr. Valeria Farris GLUCOSE - 1HRon 03-03-2022 Glucose [Mass/Vol] 214 mg/dL Critically high 74-106 [facility] Comment on above: Performed By: #### G LU1HR #### [facility] [address] [place] [address] Dr. Valeria Farris HEPATITIS C VIRUS AB W/ REFL EX QUANTon 01-11-2022 HCV AB <0.1 Normal 0.0-0.9 [facility] Comment on above: Performed By: #### P REGQNT #### [facility] [address] [place] [address] Dr. Valeria Farris Interpretation: Comment Normal [facility] Comment on above: Result Comment: Nega tive Not infected with HCV, unless recent infection is suspected or other evidence exists to indicate HCV infection. Performed By: #### P REGQNT #### [facility] [address] [place] [address] Dr. Valeria Farris HEP B SURFACE ANTIGEN SCREEN on 01-10-2022 HBsAg Screen Negative Normal Negative [facility] Comment on above: Performed By: #### P REGQNT #### [facility] [address] [place] [address] Dr. Valeria Farris HIV 1 AND 2 WITH REFLEXon HIV Screen 4th Generation wRfx Non-Reactive Normal Non Reactive [facility] Comment on above: Result Comment: HIV Negative HIV-1/HIV-2 antibodies and HIV-1 p24 antigen were NOT detected. There is no laboratory evidence of HIV infection. Performed By: #### H IV12 #### [facility] [address] [place] [address] Dr. Valeria Farris RPR QUANTon 01-10-2022 Rapid Plasma Reagin, Quant Non-Reactive Normal NonRea<1:1 [facility] Comment on above: Result Comment: Indy palomo Note: This test does not meet current guidelines for screening and diagnosis of syphilis. This test is intended for following treatment response in patients being treated for syphilis infection. To screen for syphilis infection, a reflex cascade that includes both RPR and a treponema-specific assay should be utilized, such as Treponema pallidum (Syphilis) Screening [place] (785293) or Rapid Plasma Reagin (RPR) Test With Reflex to Quantitative RPR and Confirmatory Treponema pallidum Antibodies (007829). Performed By: #### R PRQ #### [facility] [address] [place] [address] Dr. Valeria Farris RUBELLA AB IGGon 01-10-2022 Rubella Antibodies, IgG 1.83 index Normal Immune >0.99 [facility] Comment on above: Result Comment: Non- immune <0.90 Equivocal 0.90 - 0.99 Immune >0.99 Performed By: #### U ACSIND, UMICRO #### [facility] [address] [place] [address] Dr. Valeria Farris CBC AUTO DIFFon 01-09-2022 BASO # 0.0 103/ul Normal 0.0-0.1 [facility] Comment on above: Performed By: #### 4 [id number] #### [facility] [address] [place] [address] Dr. Valeria Farris Basophils/100 WBC (Bld) 0.4 % Normal 0.2-2.0 [facility] Comment on above: Performed By: #### 4 [id number] #### [facility] [address] [place] [address] Dr. Valeria Farris EO # 0.3 103/ul Normal 0.0-0.7 [facility] Comment on above: Performed By: #### 4 [id number] #### [facility] [address] [place] [address] Dr. Valeria Farris Eosinophils/100 WBC (Bld) 3.5 % Normal 0.9-7.0 [facility] Comment on above: Performed By: #### 4 [id number] #### [facility] [address] [place] [address] Dr. Valeria Farris Erythrocyte distribution width (RBC) [Ratio] 13.6 % Normal 11.0-15.0 [facility] Comment on above: Performed By: #### 4 [id number] #### [facility] [address] [place] [address] Dr. Valeria Farris Hematocrit (Bld) [Volume fraction] 38.9 % Normal 36.0-48.0 [facility] Comment on above: Performed By: #### 4 [id number] #### [facility] [address] [place] [address] Dr. Valeria Farris Hemoglobin (Bld) [Mass/Vol] 12.9 g/dL Normal 12.0-16.0 [facility] Comment on above: Performed By: #### 4 [id number] #### [facility] [address] [place] [address] Dr. Valeria Farris IG # 0.04 10e3/ul Critically high 0.00-0.[address] [facility] Comment on above: Performed By: #### 4 [id number] #### [facility] [address] [place] [address] Dr. Valeria Farris IG % 0.4 % Normal 0.0-0.5 [facility] Comment on above: Performed By: #### 4 [id number] #### [facility] [address] [place] [address] Dr. Valeria Farris LYMPH # 2.1 103/ul Normal 1.2-3.8 [facility] Comment on above: Performed By: #### 4 [id number] #### [facility] [address] [place] [address] Dr. Valeria Farris Lymphocytes/100 WBC (Bld) 21.5 % Normal 20.5-60.0 [facility] Comment on above: Performed By: #### 4 [id number] #### [facility] [address] [place] [address] Dr. Valeria aFrris MANUAL DIFF REQ NO Normal [facility] Comment on above: Performed By: #### 4 [id number] #### [facility] [address] [place] [address] Dr. Valeria Farris MCH (RBC) [Entitic mass] 27.9 pg Normal 26.7-34.0 [facility] Comment on above: Performed By: #### 4 [id number] #### [facility] [address] [place] [address] Dr. Valeria Farris MCHC (RBC) [Mass/Vol] 33.2 g/dL Normal 29.9-35.2 [facility] Comment on above: Performed By: #### 4 [id number] #### [facility] [address] [place] [address] Dr. Valeria Farris MCV (RBC) [Entitic vol] 84.0 fL Normal 81.0-99.0 [facility] Comment on above: Performed By: #### 4 [id number] #### [facility] [address] [place] [address] Dr. Valeria Farris MONO # 0.6 103/ul Normal 0.3-0.8 [facility] Comment on above: Performed By: #### 4 [id number] #### [facility] [address] [place] [address] Dr. Valeria Farris Monocytes/100 WBC (Bld) 5.6 % Normal 1.7-12.0 [facility] Comment on above: Performed By: #### 4 [id number] #### [facility] [address] [place] [address] Dr. Valeria Farris NEUT # 6.7 103/ul Critically high 1.4-6.5 [facility] Comment on above: Performed By: #### 4 [id number] #### [facility] [address] [place] [address] Dr. Valeria Farris Neutrophils/100 WBC (Bld) 68.6 % Normal 43.0-75.0 [facility] Comment on above: Performed By: #### 4 [id number] #### [facility] [address] [place] [address] Dr. Valeria Farris Platelet mean volume (Bld) [Entitic vol] 9.9 fL Normal 9.5-13.5 [facility] Comment on above: Performed By: #### 4 [id number] #### [facility] [address] [address] [address] Valeria Farris PLT 244 103/ul Normal 150-450 [facility] Comment on above: Performed By: #### 4 [id number] #### [facility] [address] [address] [address] Valeria Farris RBC 4.63 106/ul Normal 4.20-5.40 [facility] Comment on above: Performed By: #### 4 [id number] #### [facility] [address] [address] [address] Valeria Farris WBC 9.7 103/ul Normal 4.0-11.0 [facility] Comment on above: Performed By: #### 4 [id number] #### [facility] [address] [address] [address] Valeria Farris CULTURE URINEon 01-09-2022 CULTURE URINE Culture Observations : MODERATE GROWTH OF MIXED GENITAL RIO. NO POTENTIAL PATHOGENS SEEN. Normal [facility] Comment on above: Performed By: #### U RCX #### [facility] [address] [address] [address] Valeria Farris GLYCOHEMOGLOBIN A1Con 2021 ADA RECOMMENDATION SEE BELOW Normal [facility] Comment on above: Result Comment: ADA RECOMMENDED LIMIT 4.0 - 6.0 ADA THERAPEUTIC TARGET < 7.0 ACTION SUGGESTED > 7.0 Performed By: #### P REGQNT #### [facility] [address] [address] [address] Valeria Farris Glucose [Mass/Vol] 111 mg/dL Normal [facility] Comment on above: Performed By: #### P REGQNT #### [facility] [address] [address] [address] Valeria Farris HbA1c (Bld) [Mass fraction] 5.5 % Normal 4.5-6.2 [facility] Comment on above: Performed By: #### P REGQNT #### [facility] [address] [address] [address] Valeria Farris LETHA BOX TEST PT SEND OUTo n 01-09-2022 SENT TO REF LAB 01/09/2022 Normal [facility] Comment on above: Performed By: #### N BOX #### [facility] [id number] Valeria Farris TYPE AND SCREENon 01-09-2022 TYPE AND SCREEN Negative Normal [facility] Comment on above: Performed By: #### 4 [id number] #### [facility] [address] [address] [address] Valeria Farris US PREG TVon 12-30-2021 [...] GERARD GONZALEZ Date: 2021-12-30 17:14 Normal [facility] US PREG TVon 12-15-2021 US PREG [...] GERARD GONZALEZ Date: 2021-12-14 22:02 Normal [facility] HCG-BETA SUBUNIT QUANTon hCG,Beta Subunit,Qnt,Serum 571 mIU/mL Normal [facility] Comment on above: Result Comment: Fema le (Non-) 0 - 5 (Postmenopausal) 0 - 8 . Female () Weeks of Gestation 3 6 - 71 4 10 - 750 5 217 - 7138 6 158 - 45527 7 3697 -270838 8 74723 -075932 9 12318 -824983 10 27031 -598084 12 31999 -146359 14 04263 - 87056 15 12475 - 44540 16 9040 - 94129 17 8175 - 72291 18 8099 - 02764 Jamel ECLIA methodology Performed By: #### P REGQNT #### [facility] [address] [place] [address] Dr. Valeria Farris HCG-BETA SUBUNIT QUANTon hCG,Beta Subunit,Qnt,Serum 65 mIU/mL Normal [facility] Comment on above: Result Comment: Fema le (Non-) 0 - 5 (Postmenopausal) 0 - 8 . Female () Weeks of Gestation 3 - 4 - 750 5 217 - 7138 6 158 - 08533 7 3697 -364198 8 17976 -847981 9 33724 -376345 10 61800 -059623 12 41285 -374562 14 08552 - 11228 15 36176 - 73574 16 9040 - 91665 17 8175 - 02446 18 8099 - 83835 Jamel ECLIA methodology Performed By: #### U ACSIND, ALEXRO #### [facility] [address] [place] [address] Dr. Valeria Farris HCG-BETA SUBUNIT QUANTon hCG,Beta Subunit,Qnt,Serum 18 mIU/mL Normal [facility] Comment on above: Result Comment: Fema le (Non-) 0 - 5 (Postmenopausal) 0 - 8 . Female () Weeks of Gestation 3 - 71 4 10 - 750 5 217 - 7138 6 158 - 50499 7 3697 -110791 8 43287 -732531 9 23762 -020963 10 98991 -958427 12 92170 -474112 14 43514 - 28649 15 62221 - 47493 16 6980 - 58219 17 5697 - 88327 18 1419 - 56790 Jamel ECLIA methodology Performed By: #### G LU1HR #### [facility] [address] [place] [address] Dr. Valeria Farris PREG QUANT HCGon 10-05-2021 HCG QUANT <1 Normal [facility] Comment on above: Performed By: #### P REGQNT #### [facility] [address] [place] [address] Dr. Valeria Farris HCG RANGE SEE BELOW Normal [facility] Comment on above: Result Comment: 5-50 0-1 WEEK 40-300 1-2 WEEKS 100-1,000 2-3 WEEKS 500-6,000 3-4 WEEKS 5,000-200,000 1-2 MONTHS 10,000-100,000 2-3 MONTHS 3,000-50,000 2ND TRIMESTER 1,000-50,000 3RD TRIMESTER Performed By: #### P REGQNT #### [facility] [address] [place] [address] Dr. Valeria Farris FREE T4on 09-12-2021 Free T4 [Mass/Vol] 0.88 ng/dL Normal 0.76-1.46 [facility] Comment on above: Performed By: #### P REGQNT #### [facility] [address] [place] [address] Dr. Valeria Farris TSHon 09-12-2021 TSH 1.564 uIU/mL Normal 0.358-3.740 [facility] Comment on above: Performed By: #### 4 [id number] #### [facility] [address] [place] [address] Dr. Valeria Farris TSH RANGE SEE BELOW Normal [facility] Comment on above: Result Comment: <0.3 4 UIU/ml HYPERTHYROID 0.34-5.60 UIU/ml EUTHYROID >5.60 UIU/ml HYPOTHYROID Performed By: #### 4 [id number] #### [facility] [address] [place] [address] Dr. Valeria Farris US VENOUS DOPPLER L [...] GERARD GONZALEZ Date: 2021-09-12 14:31 Normal [facility] Coding Summaryon 10-16-2020 Coding Summary HTMLBase 64 OmojqamxZVl3tBv+PGhlYWQ+ YH5JTDNpQ70ipBAygT7WN9iF RO7LZZDPTZRVCW7WBF4vwYS5 FYkvG7WetrNl SrwjiBScLG32UOh7DTW2uDsz JNutlZ4rgHLvQ7n6JtBkKB23 jL46UKvuYWIkZeR8YbZqwdmu bWFy N6agPgLzvEOfNnn+PHRhYmxl IHdpZHRoPScxMDAlJyBzdHls YA6cKa0cSRDxAPVltAbswLHu OiBj t9jcEQTdXVykEX7hsBapE8Jp oWW7UHUzz7i8Sr84rFX+PHRk QAC0wVajIWzaq725NjMlp4yg IDM3 tQNeNDlqSKH7P66gb4F0YTIu EYZjJZR3hEW4qN3lnTtuzljn W7OtvSLbXnD0TVT7gOSjbX7x bGln ctjatB0fRab+S70SSR8WJFFY VA7TSaw7L9OzRjaqmCP+PC90 IYVeWA55sEMfbVZiv9urtXb1 JzEw IZNtTMM4gBjiEAlil9KiQAEr S90wrOWzw2M4UMPtsBxdxDHr WeEecPO5hS4qWTgcqxozv1bp dzsn Gfhcj6jecj63oI52Y67fBPne DWZtQAA5MEKwABZxcTtosd6s gR1fEu3+HGvka5hbz2nswAi3 IjIw TMZsmvJtbQagEQA9k6XdTl38 E3UzeQecf1EmAui9nm58vKSj e6V1tEM7KMfhSECvjC5qGBqa ZnQ6 VKYcKyYlqW79uMSpDXsmWt0s hDqukOqqRE9qPDIjaflcCJMi qE4kNJQhnJHenGdcMZ2vZMIs bjtm q031EjVrGCJ1AKRomCFkP6Ri xO4iJmAzEQYcRJHxH4IlvIZr QLmgT133UItcZuX1MOQcdzQu Y2Fs RSSeeTsyTkB4f5B0Jf8Ez3Dz pknkOCY7CUzeELT8VpR7MpSl WgQ1F3EwRdh1MOUcoYfdZF6e J3Bh QSKwjmnbuhzcvXR1YHTaPSCh sA45bFLaWHepWp5cn0G0d898 QJCvFGSqjN85Lr0bzImcWAGp dCBU qA1hqgine7jevyxgVoChVBGx YHm4IFn0HVJetUssNeHwQRZ8 LwS9YLS3zZPhpW9agIzcvnpu dG9w Oyc+G64hhT3gZBQ4EGD0veyq BBBfjfBtTE11XU48E0RsVbie dGFibGU+WVLscuPjiIlvBN7z YmFj j9zcp3IpZNjsD2VjFOPbUIcl Yws8BFGpUBV9aCL2rK2yOJRq LVguo1C5wLH2A8MhdbWwhz4b b2xs XQFpWJexL07ywNIpd1P7KAVe hMC9VUQonEycXvNvzV02Sbn+ UPVnsKppl1UmLakjh2uxt5fl dGg9 SqSqCJNluvJocTwxENI5x1Gq Wt74R20fMZleEJKiHFRiTKNb FQNteNngag3vmN3rSl9+PGNv bCB3 fFG9lK5yPVYxEdA6WOxbD900 MtRotAIwJxwyt6wnk9kbqTh2 XrHcCLHjxrKlsPoxPIS4r4Bs Lz48 V60cUTvsIVCdYNLwAKCtCWAg aYazmp3lbJ2kRm2+PI9vh2zc ld13iF79zDV+IFMpXOI9zQua PSdw DOWaiT1oTKelZkN8RHEbGpVd lW06sUXlNKjmNd3gjDjytGbw KC0fVXSdfpqvn586FjNsl8xi IDEw fESwATiwTGR8L99bx0S3RRUc JIFaRES4tVR2gC1ymNybqomt bGVmdDsgdmVydGljYWwtYWxp Z246 IHRvcDsnPlBhdGllbnQgTmFt SSl4V7UkLrf3TTUvaGebLM5h mAJkIEoqJu8lkJowxHfaJU0p NTBp wuswi673WjGjc9gqABVghTHt UGawFOL3K24pc3N5LWUyZLUa DIB5tYH3kU6stLjkfgssxALm dDsg tuDjiMfhUYxnKApgO555PQGh dHojLvDtymAiWMNbzHS9HZ24 IK88pWNsw4R6rPM1O2MpRLLp bmct aqjwkFR9HNOhUTTgnE11Of9c gZgyZw6rFMItKDN9IKNyhUUu T5SrgW4cUyRaMGCzKFBhQ5Rj eHQt DCjmK071NIpnWaS6QWGaabFh B2TrWWDerTsqOaY6l5O7Nv3D S6P2LZ15SD41vSGzb1Q0wLD0 J3Bh WHTnahuofwpklKA0UMTtIBFe qY68Ts5cyYtvGq9bKFJrOUS2 CXJewEBcL3BddV6oJoTsRNSk MDAw M5YfoXIlFQioL475DTwgByF7 STQoneWdY4YvJNIixRybShL7 n9T0Hk1YRYv1VP96RH38kCJd c3R5 cVL2T6HgWBCdhubbudejvXW9 TPAsEXKkzN42Yb4mcYotSw2w CQKdHEZ3ECIitBVeH0FbaG1o OiAj EMJwGWPuR4XfsTLnVAejK065 IPnwBiU1MGRxfiWzW4NiBZJn aIlwJiS5b2Z4Ie3QJFZuSW38 IFR5 cUB9XI69OZ90H3EhZrwhkHSl bGU+PHRhYmxlIHdpZHRoPScx GIQvCvBckPlpXJ1oRj4yZDQx LWNv mQuhtLCnTcDjw4gdFRGnJAqa PN3goWrrJ1RxrLX9PLZtg9y7 Zp68F09hF9QjsNJ+PGNvbCB3 aWR0 iD9uHsFbWrQ3GUttB049CoPv cILxUyfeb3xbi1iqeEt9NqT8 QFWeohNrgEiwUSR9l5EhYi76 Y29s IHdpZHRoPSIxNSUiIHZhbGln zx5ayC7oHm0+THUssTP9xSZ5 bF8dTlKyDcX7RQsbY486HsFo cCIv Wexor6gwq2wimOk1GzBvEETm pgOmcEmbCVO0n8RzRh85X4Cb bMaui9ZsKrj8gm48jYXjp0N2 bGU9 Q2LiYORaedqqeUOncYtlAJ5r IHMfzsyfTFBqrL0cHNEhK6k0 MrJsRgZ0FCknM9KzpdP6DMGq cHQg EQliWOC1P89mt3X9PZUbZXFz JMZ7vIM0fI2qsBcfcdaxcFAa jWgaqmLpnAozMGwdHGwfT507 IHRv sZnrVRJwfD1gWFKkgLLrlTka WK1yXUAknuxsArOHUwZBHmEJ LCBNRUdBTiBNQVJJRTwvdGQ+ PHRk JKK2jEntMVlgPSWdnG1wDKZj D7j1SwRlZgF7YEpiB7FtAAAn qsbhLp94hA3fEoJtJnF4BDlj O2Zv tvD1HTUbxDKbDHhoVOP9P87t e2I9VVUkMKGcPAS3qSJ6tQ2b bGlnbjogbGVmdDsgdmVydGlj YWwt PZtxB863GWNfhNbuBrCxOyD6 HfZ9SIA4H8AvGtq7XPJiqOvq XL1dzQGjIRfaRe5qzTsugJdu MC4w UNHqtoatOHBrcT1xBGBdaUXa sMbhQE3jILAedgjmj735AtNd UZD4WQElrIYwK5KgyL9dOiBd MDAw DHNlQ8YwvLDzUZftN291FIhq VzV7OXUncwRyK2PdMRVhsEaq QoC8n5M9Lg1yYDIBXCGuksiz dGQ+ JNRrYOH3vZsaVSotDYQxtL0h ZLAsD4i3ZoGkByH1FEbgB0Dp JYZlvywyMh62uK7hVeTaEzY0 MGlu A6RivgU6TUDemAJyIPosNUS4 Z15pk5O4OLPnIIDnXLX5oZQ9 vN9vjOezatoduZTuqDtrjdVz dGlj UHbtGKqrP662SNXfrDhvGfOI TUFMRTwvdGQ+BQAlZFG0yYnj WCszZUTlhW1kWLVkR5t9VmEo LjA1 TCeuA2CfAYUtseqhZq25sD8y IiZmPrV7ZYlfK2TcqmE4MPTp hJPnMHuhKPF4W11pd6P6CAAu MDAw ZOP7oUW2zC1byLndtpggtSXe uTagknErmCqpSBmgBUdgT831 YPIhxTlgSa8AJI19JQ23X8Tj Pjwv dGFibGU+PHRhYmxlIHdpZHRo ALhoXPEqQjNifCakCT1lCd5n IWRmLOTnzVxbfNSfLvJny4ms YXBz YXljTD5xaJpaV3FobRA7IGSg z7t5Si14D31hI3UfhTS+PGNv aMV0lNS6wO1lDcWtXgG4BVni Z249 JuUkuKRlAzdgx4bar4umbUl6 MxZyJGVpmqBpuHekJCG0t5Nv Gf69X02mVPxqVHNhVYSeOVXf IHZh tWkgia7ivL6yEr1+PGNvbCB3 wSM2dT2iZlOyDvR3ZCaxI096 PyQfdWAhAyszM41lJ2QqyCY+ PHRy Til2CXFfbZdcPD7duBEpYMry Ut6sPOC3TpCaPgPsSKpnG8Mm WTJrwqfqhgwazKV8EAEmBDNj aW47 Si9jiBtoSu1yDAUwGTL1SBYs cLApF3WceC5mBzXeCASzLFSl C7WwyMDlEJipK841BClgLoU3 IHZl hePtF4WuHWNkaXsmOlT1e8A6 Ym5LrFhdxZBjDB1xZsLsEDg7 K1ErXcr6QLEscCvvSB8iuJMy ZGlu Gb3iiIzmmOfmZQ7rWAXqprbk d470XkDyq4hrOUQjiBHoPOfr PRJ3N15sb0M2KVYcNCUsGOJ3 dGV4 gS0saYplnstimOHoiQigcxRx rBjnYOnuCPywJ677LWCzaEtf PjPDYpr2M7EbWhq7IMMihCgu ZT0n tKHdLTagCs2eoSsjmHxpMR4v LJUfgwmvs151TcHrw6dwHOAr lDWhOIisCMR5S23ip7B0BDQi MDAw RRF7aTM6xV3cxVsytsqtgOAs oStpagLmsMbfGFebDKxeB312 JMClcIgnHz6EQsb9X8JkAhe9 ZCBz xKgqSW7aeJQtICnnZa9txVjl dQcnOS3yBJObnvunp353FwJn s2wqHAPayWApPNaqGIZ4C68k b3I6 YPOcHJKqWRH1uYQ5vD0ghDis bjogbGVmdDsgdmVydGljYWwt ZJzkG340SMOtcRmyXvXjuNAl Ojwv dGQ+QE65hb78F8YaQcjoXjv6 KSJdVQZ3vRM8iR3xFFOxBZmq q9Q1cYR4A2PkwjRpad4uv1ct YXBz ZTo (more content not included)... [facility] Coding Summary HTMLBase 64 ZqpadpbeGRk2wSm+PGhlYWQ+ OC3YRXQgJ04ziDWezD3VD1hH WS9HXJHOIAIERR0MYM6glWV8 MIcoD5WdprPw RuitdEKcJB74QMj5QYK6lPaf USltwK6lqWFkQ6p2IbHgVO12 uJ59HVqdQDOeClY1CqSubzoa bWFy F1mcBfQewGDnRfq+PHRhYmxl IHdpZHRoPScxMDAlJyBzdHls NM4dHs4iSPGjXCNecBjwwSIx OiBj a3qqTASwEEfhHM1gzZabB1Ui vCY6DMHnl6a6Ma96sJN+PHRk JKR4uNuhOMcvj185GoLtp7rg IDM3 mNKrSQuwLPX9A57pz4Y8VVGt YAEbCQR8cEI6sB0euHmfnjeo H4QckDRyNsS2BDW0xONkkG5q bGln wpejoX2sFgg+X28EED8XDRJT RJ4RBlc5X1DpHbtefBQ+PC90 VPOwRK78ySAclRVgx2bdaAl9 JzEw ZRGuDAP7rWadVUfzx8PiRAUt M38aeZVsv4Z5ISDrcUadqGWy CjFcoKW6uQ3mRUdqafvdr8yk dzsn Lfbxd3mnhx57jM97T27yVByp QMKqJRY7MHWlUSQccZjnsp6n sD6jLs9+FGvol9opt0doxYa8 IjIw UFRepiUfnRjnHTV9h8IyNa97 G0CpkTsuy2CgXew9sg43jDSq o2C6pZR5NJqzXDQonA3iPFyn ZnQ6 DLBsLqYevV98xLVvXPxwNn5w dVarfEkmZG2gVFPkelxaWUNu xR2aCSRvmWJduBsdTK6gYBKt bjtm c417IqLgZYF7JPMjcZPyH4Tr pO5eTcBrOQCaPNCnM9BkfUJe PQgdM092YNrtTiF8DOOcwlOn Y2Fs SGLsrWbvGhL1x5M7Ww4Sw0Iz hnxxOGV8PNtxGJU1AgF0OmRl VaI6A1IwPgt7SSCbxVvkMN9b J3Bh QMEhgexrkgfoeAW6PRTkEMKd iR10yVHgYSibLm2mn4R2w154 OZFpPJQyrA36Nj4zbTuvGUSx dCBU sL7vrogzo1zofnriLmHqLAJk UCs7MAx4KHNyzNzeQlCtNJS4 BeT2UIM3dXIdaB9pzJbhgabs dG9w Oyc+W99thI5lENE9VTE4mdsj OPCfrzCbFS85UL20X3YqTscl dGFibGU+ZFGmwcQtoGrgQN0w YmFj g1sri0WkSYelY3QwXRAfBSjx Ywp0YPZfFWE1uEY5cW9pIDEh FRtvn2G3uQP7N7BmfhZtlc1d b2xs XYYaBNamD80skLYzc9F0THFs sPM5FEWaxRspIdPlxA72Ten+ VKErvRrzs0MbAchjr5xfv6ur dGg9 AfXwHYXgniKjmJguDFZ2i1Ez Ez06Y25hXIioJXNiFSZgVISj HBMtcFuvil3uaK1yHk7+PGNv bCB3 lFN5wA6zIAQfIgR9CQpgP804 NtQaqXBfGhuyw3gjs8cuxVr0 VbAzBDPpisWguRvgGCK4w8Yb Lz48 V08wHLpdBFMhZQGkFHRgUACi xFywys0shT8yQy0+PO9jb7df ub06dV93vBQ+OKCdZNC6iFem PSdw SNOezE6yINrzMiV0BMRoCnAt vK66mOTsBOtbTq1roWfqkSjt PA6qIYGrkbimm668AuWza1ld IDEw aVNrKOncHBX8M23zn6E5ALNv MEYdICZ1zNK9uN3tsUcuckok bGVmdDsgdmVydGljYWwtYWxp Z246 IHRvcDsnPlBhdGllbnQgTmFt BVe8C0JyQrz4DTTuqCniIU8g cYKqUWorPs3thHmlpYjfXE7r NTBp xcimt224OsLbj0buSAYuhPDi DIzzYLR2J65ep0K0ZKWuQDOz VDW9mKM3cN2faGnguxyqqANx dDsg yvWkzJsyFYbuSGbsI500PWEy cDmwTiChczUdMRZnvUA8NR16 FF81rPPtm3X4lPD6Z9HtALEb bmct cedajQB4LKTfOXNagY68Uy9d iWlvOr9bIEGnYXM6JDJyfAFg W1RcgH2rKmWmEYXzYBBwZ1Uk eHQt FDhmD989LTvgMhQ1YCDijlYq O8JcDNVnwMzxLkQ6o3N4Bl7A O7N5HO28MU47wROee3Q5kLM6 J3Bh NHFqnzmwneoxcYE0MVWvADBn tZ31Lz5udUtzYw6rKTXvRVQ1 WZAyoVSbV1HtxA8rMjXoOLAf MDAw N3XkxLZgBIjvI805SGeyZqP2 THEbhiHwF8OaQSYnuXmmCtS0 v0K7Dx0ZFLu4PW97KV95cZIc c3R5 iTA5T3QlMXLgzaqwrhqwoQC7 KBLsSFUyjZ00Va0ghVkyPl9d IARcRQJ1VLGjgQFxG2XuvL4h OiAj KHXdQEDlQ2CyaDQlFLspI448 YFflXlY1NUOathDhJ1LoRXDs xQnrEzL4d2R1Wr3PRJCgTD67 IFR5 qEG3KL83ZP78H4OiJtlxvXFy bGU+PHRhYmxlIHdpZHRoPScx HKSyXoWqsYhxPF5bMt0iMOAl LWNv bUzssHAxUkMvo9ipOLJsDQyd UD0zeGiyT4IsiND9WLCjq2i1 Wr85G96xF6UmeHP+PGNvbCB3 aWR0 rF0nTiHjXxC3IJlpX049QxMg xNNrPayvt6rhd0ijlRq0ZlS0 WSOadvEduPmgMIQ1v8WeOw72 Y29s IHdpZHRoPSIxNSUiIHZhbGln ur6ccS6iQk3+DHOlaGW6sRD9 hY8kHlPcJmQ8BPjaJ549SnUx cCIv Sfexh1tjx1ymqZx8DdViQPYa wdNzyBokKCW4p3MyXm96K4Qo jCjgq2CfXjm9yb26jNTxo5B2 bGU9 G4UhFJAlzxxceZQvzQyyHX5r GYHnzkxiTBMlyR1fWIJxB1l7 WqCmWoG3MTeuP0OzuxK2LKWk cHQg NNzrCZG4V10jj0W5MBQaUQRq DYI5eJD5sU3ocGiviwaxhOEz rFdeydUifYtkCEgfLDveW217 IHRv bWheCABgqH5lJSYrfUKphOps NE6oZHVxpufbDuIPOjOMMdML LCBNRUdBTiBNQVJJRTwvdGQ+ PHRk LAX9cOokTKniPEUclU3cNWOe X1p9FyQtTlT6ZEckZ2MqIRVf jzmiSe72qX3kOvCwXcU1FKnc O2Zv hvC4DYBfgZUdYHqqTXI5U09x a7N3VHMkPOEbGDH1nNX7nQ0g bGlnbjogbGVmdDsgdmVydGlj YWwt HPpvI137EELefDwhTwWjLuE8 QzN5LKK8J5GqZob2RWPvaRws QF0qnKLmUSadFz7ajTqniIak MC4w MBEejrjgZFEekI7wPIDktFLf pZkhVK8sDQDqdnfap601XgZk UTX1UZEjiDVjH1MmfR2kFoSl MDAw NGEsR4KqjORcHPkiV455SCxq JoM8TZMkntIdL8UzPDUypLgu PhZ9x0I8Xr5iECUYVSLzhisr dGQ+ RJSgYVE5sZffTVpjUGCtuH7t ILZvP4r4VhNqJoW9BBbgX2Vg CMOzkpznWy09mP0lZdPmIpY5 MGlu X3QdntR7MOGzaTYdCDtjDRM1 C58gx6X7AEPcVDNoBNS5vNV6 cA7gwIndumntiOHzzHtfgtRv dGlj CUcgMZwkD691LOUgyNcwKvUE TUFMRTwvdGQ+KYYiSUN9xSpn UYdyAJAytN2lLLGgI8w0LfHh LjA1 UAtaF0IyPVQirxzqPw93eG1v HgUtYcL6VYgfE9FipwR1TGFk fAXjRBisEBT3X77vd8O6LBJf MDAw TFA5hSJ4wE8thEwmhhsocRDl qNtnfhNbrHqsVOzsKZdyL489 TTDdnOufJtJtXRJcCC2dkHxb dGQ+ NA72vd71F2MeRpdcHgw7JJWs SJD9zJV2dA5yFLGqVXqtv1A8 yWX3N5CebsGklc0ur4rqFPYx ZTog X14umEKup7J8VPXscJD0DURe pOrxYrHzeW49Ekg+PGNvbGdy k2DjHvrco9jpy7tjbCh2DsNx JSIg muYetWvwQWY7a9YjSk25O29l IHdpZHRoPSIzMCUiIHZhbGln iq5bnK8fGn4+BSWrhUT7oGY6 aD0i ZqDsItQ1AWfuR419GaIlqIIp Plmue1apx2nmoNo0RhHpZPBs mlRqzWhcHTV3f3IcKi77C6As bGdy e3MfVpi1oe92pKAwu3T8bQO8 U1ZlFFIhoqqhqRQnzFkgDO5u NQBsabycYFGrdU7kPEKiD4u9 OiAw KjU5UKotW2FydgB4PAWnwTSn KWRxzXUScO6sasitk2colwak YxAeJWDhYUn8CAb7MSDmsImb OiBs AXC5ZmJ4CTS9zZLvdM2yoNfv vhqsgG6bXjd+APv7f9iguALy VZ4ygEH4KU64WP04kZOlq4A3 bGU9 H1VcHJXmgvuwtxnqqMB8REJi LPJklR63Xz8hnNfeNw0yKUXe IYH5KPYyhAAtV2WrfA2qFkRz MDAw WSLqC7YhzRPgKFmlD481GFhq KwH7SYGuwdAxL0HfINDfwXli HoA7r6I7Xu0FLN07UB10ST08 dGQg h0X7qRY4D4RxZJJfdascybvw kCB8MHYoEIMydB59Gb4fxMex Xp7uTVBoNFB6XXBamUQoO4In bG9y LqHbLKUpQYMsZ8TwnINzSDcj K127FZkyHhE1JYZoqqOhU3Fw VXIzzUkxOuT2d9H2Qi1KGg29 PC90 OF45uHAnh1X8fUC2C7MuTEMb jusjwywtnYM8RSBqSBJqrX63 Ne1uiXjsEn2gOHCzYHQ6NTKq bWVz V5UlcH7zMdRvFNNzAYJoW0Rn dESvOPfdG901SUbzEbN2YWAh ppWeN3DtARTlnMuwRbV7c5V0 Jz5Q NQcjars4X8KmHbfcaEI+PC90 ENReXI26jUAtxLXlw0npcEl4 PqMxFWPgMZU7eEpbQYzjj8Gh ZXIt Y29 (more content not included)... Normal [facility] .Auto Diff 10-11-2020 Auto [place] % 6 % Normal 12 [facility] Comment on above: Performed By: #### [id number] ####[facility] (DEFAULT)[address] [place] [id number] Baso Abs# 0.0 x10 Normal 0.0-0.2 [facility] Comment on above: Performed By: #### 7 [id number] ####[facility] (DEFAULT)[address] [place] [address] [id number] Basophils/100 WBC (Bld) 0.3 % Normal 0.2-2.0 [facility] Comment on above: Performed By: #### 7 510078, [id number], [id number], [id number] ####[facility] (DEFAULT)[address] [place] [address] 05268 Eos Abs# 0.2 x10 Normal 0.0-0.4 [facility] Comment on above: Performed By: #### 7 556431, [id number], [id number], [id number] ####[facility] (DEFAULT)[address] [place] [address] 52521 Eosinophils/100 WBC (Bld) 3.4 % Normal 0.9-4.0 [facility] Comment on above: Performed By: #### 7 067933, [id number], [id number], [id number] ####[facility] (DEFAULT)[address] [place] [address] 50580 Lymph Abs# 2.5 x10 Normal 1.3-2.9 [facility] Comment on above: Performed By: #### 7 088902, [id number], [id number], [id number] ####[facility] (DEFAULT)[address] [place] [address] 31358 Lymphocytes/100 WBC (Bld) 41 % Normal 14-48 [facility] Comment on above: Performed By: #### 7 413017, [id number], 76030853, [id number] ####[facility] (DEFAULT)[address] [place] [address] 59526 Hidalgo Abs# 0.4 x10 Normal 0.0-0.8 [facility] Comment on above: Performed By: #### 7 220387, [id number], 75597872, [id number] ####[facility] (DEFAULT)[address] [place] [address] 54952 Neut Abs# 3.0 x10 Normal 1.5-9.2 [facility] Comment on above: Performed By: #### 7 215697, [id number], 44338587, [id number] ####[facility] (DEFAULT)[address] [place] [address] 49440 Neutrophils/100 WBC (Bld) 50 % Normal 44-88 [facility] Comment on above: Performed By: #### 7 635950, [id number], 23094609, [id number] ####[facility] (DEFAULT)[address] [place] [address] CBC w/ Auto Diffon 1 Erythrocyte distribution width (RBC) [Ratio] 13.2 % Normal 11.5-15.0 [facility] Comment on above: Performed By: #### 7 738435, [id number], 56497880, [id number] #### [facility] (DEFAULT) [address] [place] [address] Hematocrit (Bld) [Volume fraction] 36.8 % Normal 33.7-40.4 [facility] Comment on above: Performed By: #### 7 248184, [id number], 38160691, [id number] #### [facility] (DEFAULT) [address] [place] [address] Hemoglobin (Bld) [Mass/Vol] 12.4 g/dL Normal 11.3-15.9 [facility] Comment on above: Performed By: #### 7 468463, [id number], 98594671, [id number] #### [facility] (DEFAULT) [address] [place] [address] Instr WBC 6.1 x10 Invalid Interpretation Code [facility] Comment on above: Performed By: #### 7 574882, [id number], [id number], [id number] #### [facility] (DEFAULT) [address] [place] [address] Man Diff? Auto Normal [facility] Comment on above: Performed By: #### 7 366085, [id number], 82798284, [id number] #### [facility] (DEFAULT) [address] [place] [address] MCH (RBC) [Entitic mass] 29 pg Normal 24-34 [facility] Comment on above: Performed By: #### 7 689444, [id number], 95073733, [id number] #### [facility] (DEFAULT) [address] [place] [address] MCHC (RBC) [Mass/Vol] 34 g/dL Normal 26-37 [facility] Comment on above: Performed By: #### 7 009777, [id number], 18708301, [id number] #### [facility] (DEFAULT) [address] [place] [address] MCV (RBC) [Entitic vol] 87 fL Normal 81-100 [facility] Comment on above: Performed By: #### 7 381609, [id number], [id number], [id number] #### [facility] (DEFAULT) [address] [place] [address] Platelet 204 x10 Normal 138-427 [facility] Comment on above: Performed By: #### 7 552787, [id number], 39340418, [id number] #### [facility] (DEFAULT) [address] [place] [address] Platelet mean volume (Bld) [Entitic vol] 9.6 fL Normal 6.3-10.2 [facility] Comment on above: Performed By: #### 7 008939, [id number], [id number], [id number] #### [facility] (DEFAULT) [address] [place] [address] RBC 4.25 x10 Normal 3.70-5.30 [facility] Comment on above: Performed By: #### 7 888173, [id number], 90681304, [id number] #### [facility] (DEFAULT) [address] [place] [address] WBC 6.1 x10 Normal 3.5-10.5 [facility] Comment on above: Performed By: #### 7 390325, [id number], 57214774, [id number] #### [facility] (DEFAULT) [address] [place] [address] CMP Standardon 10-11-2020 Albumin [Mass/Vol] 3.9 g/dL Normal 3.5-5.0 [facility] Comment on above: Performed By: #### 7 280498, [id number], 62466890, [id number] ####[facility] (DEFAULT)[address] [place] [address] 23178 Albumin/Globulin [Mass ratio] 1.3 {ratio} Low 1.4-2.6 [facility] Comment on above: Performed By: #### 7 435433, 1210009770, 93552519, [id number] ####[facility] (DEFAULT)[address] [place] [address] 02357 Alk Phos 67 IU/L Normal 32-91 [facility] Comment on above: Performed By: #### 7 524781, [id number], 97827299, [id number] ####[facility] (DEFAULT)[address] [place] [address] 82413 ALT [Catalytic activity/Vol] 28.0 U/L Normal 14.0-54.0 [facility] Comment on above: Performed By: #### 7 148785, [id number], 12513026, [id number] ####[facility] (DEFAULT)[address] [place] [address] 61178 Anion gap [Moles/Vol] 14.0 mmol/L Normal 5.0-19.0 [facility] Comment on above: Performed By: #### 7 999514, [id number], 22623003, [id number] ####[facility] (DEFAULT)[address] [place] [address] 90239 AST [Catalytic activity/Vol] 16 U/L Normal 15-41 [facility] Comment on above: Performed By: #### 7 323072, [id number], 78455366, [id number] ####[facility] (DEFAULT)[address] [place] [address] 49183 Bili Total 0.3 mg/dL Normal 0.3-1.2 [facility] Comment on above: Performed By: #### 7 413984, [id number], 62520559, [id number] ####[facility] (DEFAULT)[address] [place] [address] 67203 Calcium [Mass/Vol] 9.0 mg/dL Normal 8.9-10.3 [facility] Comment on above: Performed By: #### 7 519151, [id number], 34816606, [id number] ####[facility] (DEFAULT)[address] [place] [address] 61307 Chloride [Moles/Vol] 109 mmol/L Normal 101-111 [facility] Comment on above: Performed By: #### 7 146279, [id number], 94868935, [id number] ####[facility] (DEFAULT)[address] [place] [address] 73895 CO2 [Moles/Vol] 21 mmol/L Normal 21-32 [facility] Comment on above: Performed By: #### 7 291246, [id number], 24447699, [id number] ####[facility] (DEFAULT)[address] [place] [address] 44188 Creatinine [Mass/Vol] 0.90 mg/dL Normal 0.60-1.30 [facility] Comment on above: Performed By: #### 7 514129, [id number], 54239167, [id number] ####[facility] (DEFAULT)[address] [place] [address] 27435 Globulin (S) [Mass/Vol] 3.1 g/dL Normal 1.5-4.3 [facility] Comment on above: Performed By: #### 7 725626, 2630627340, 04151294, [id number] ####[facility] (DEFAULT)[address] [place] [address] 91329 Glucose [Mass/Vol] 95.0 mg/dL Normal 74.0-118.0 [facility] Comment on above: Performed By: #### 7 708638, 8575452036, 82926020, [id number] ####[facility] (DEFAULT)[address] [place] [address] 36790 Osmolality 282 mOsm/L Invalid Interpretation Code [facility] Comment on above: Performed By: #### 7 773101, [id number], 43430486, [id number] ####[facility] (DEFAULT)[address] [place] [address] 53481 Potassium [Moles/Vol] 4.0 mmol/L Normal 3.6-5.1 [facility] Comment on above: Performed By: #### 7 036826, [id number], 85705513, 7637796705 ####[facility] (DEFAULT)[address] [place] [address] 98869 Protein [Mass/Vol] 7.0 g/dL Normal 6.5-8.1 [facility] Comment on above: Performed By: #### 7 309043, 9681113530, 16193206, 1692106147 ####[facility] (DEFAULT)[address] [place] [address] 68296 Sodium [Moles/Vol] 140.0 mmol/L Normal 136.0-144.0 [facility] Comment on above: Performed By: #### 7 473835, 1537428867, 28286850, 3472341283 ####[facility] (DEFAULT)[address] [place] [address] 86328 Urea nitrogen [Mass/Vol] 20 mg/dL Normal 8-26 [facility] Comment on above: Performed By: #### 7 516342, [id number], 93712476, 4402588904 ####[facility] (DEFAULT)[address] [place] [address] 49811 Urea nitrogen/Creatinine [Mass ratio] 22.2 mg/mg High 4.6-16.2 [facility] Comment on above: Performed By: #### 7 654778, 4885103381, 64558223, [id number] ####[facility] (DEFAULT)[address] [place] [address] 97961 Discharge Instructionson Discharge Instructions [id number] TIFF Normal [facility] ED Clinical Summaryon 2020 ED Clinical Summary [facility] - Emergency Department [address] [place] [address] 39540 ED Clinical Summary PERSON INFORMATION Name: YANI WOODY Age: 30 Years Sex: FEMALE : 1990 MRN: Acct#: Visit Reason: Pelvic pain; PELVIC AREA PAIN Arrival: 10/11/2020 09:15:57 Discharge: 10/11/2020 12:33:00 LOS: 000 03:18 Check In: 10/11/2020 09:15:57 Checkout:10/11/2020 12:33:00 Address: [address] [place] [address] PCP: Provider, None PROVIDER INFORMATION Provider Role Assigned Unassigned DAVID GALVAN ED PA 10/11/2020 09:24:51 Linn Decker DIANETIC COUNSELOR Nurse 10/11/2020 09:28:06 Kristi Case DIANETIC COUNSELOR Nurse 10/11/2020 11:45:12 VITALS INFORMATION Vital Sign [...] test which were negative. She contacted her trimmer and borer machine operator who indicated he could not see [...] - pharynx pink and moist. NECK: -Supple (xisn-hn-jykco): non-tender. CARD: -Rate and rhythm: Regular -Edema: No -Calf pain: No RESP: -Respiratory effort and chest excursion with respirations: Normal -Breath sounds equal bilaterally: Clear -Wheezes: No -Rales: No BACK: -Signs of pain with movement: No ABD: -Distended: No -Bruits: No -Bowel sounds: Normal. -Deep palpation: Non-tender, soft, no guarding or r (more content not included)... Normal [facility] ED Note - Physicianon 2020 ED Note [...] test which were negative. She contacted her trimmer and borer machine operator who indicated he could not see [...] - pharynx pink and moist. NECK: -Supple (xgbv-dv-uxyyr): non-tender. CARD: -Rate and rhythm: Regular -Edema: [...] report. I r (more content not included)... [facility] ED Note-Nursingon 10-11-2020 ED Note-[facility]ing [facility] c/o [...] light within reach. Will continue to monitor. [facility] ED Patient Summaryon 021 ED Patient Summary [facility] - Emergency Department [address] [place] [address] PATIENT DISCHARGE INSTRUCTIONS Patient Information Name: YANI WOODY Age: 30 Years Date of : 1990 Reason For Visit: Pelvic pain; PELVIC AREA PAIN Arrival Time: 10/11/2020 09:15:57 Primary Care Physician: Provider, None Attending Physician: Linus Neumann MD Comment: Visit Diagnosis: Diagnoses This Visit Ovarian cyst (N83.209) Pelvic congestion syndrome (N94.89) Pelvic pain ([id number] -[id number]) Prescription Information: If you have been given a prescription for narcotics, seek immediate medical attention if you have any difficulty breathing or any sudden status changes such as confusion and sleepiness. If you or anyone you know is experiencing suicidal thoughts, mental health, alcohol and/or drug addiction problems; contact the [facility] 13/11 Crisis Hotline -text 4HAHA km 997525. If you received any narcotics, sedation, or [...] legal documents With: Address: When: Cordelia Donahue [address] [place] [address] Business (1) Within 2 to 4 days Comments: Follow-up with trimmer and borer machine operator in the next few days for reevaluation. Return at anytime for reevaluation or if you have worsening symptoms, vaginal bleeding, chest pains, shortness of breath or any other problems. Continue to stay hydrated. Medication Information: The exam and treatment you received today in the [facility] Emergency Department were for an urgent problem and are not intended as complete care. It is important for you to follow up with a doctor, nurse practitioner, or physician?s hair or beauty salon assistant for ongoing care. If your [...] so we can reach you if necessary. [facility] Department has provided you with a complete list of medications post discharge. Please inform your wool spotter/provider of your visit and for further instruction [...] (Inserted Image. Unabl (more content not included)... [facility] Extra Greenon 10-11-2020 Tube Collected Yes Invalid Interpretation Code [facility] Comment on above: Performed By: #### 7 145656, [id number], [id number], [id number] #### [facility] (DEFAULT) [address] [place] [address] 72832 Lactic Acidon 10-11-2020 Lactic Acid 12.4 mg/dL Normal 4.5-19.8 [facility] Comment on above: Performed By: #### 2 [id number] ####[facility] (DEFAULT)[address] [place] [address] 71595 Test Urine 1on U Preg Negative [facility] Comment on above: Performed By: #### 3 [id number] ####[facility] (DEFAULT)[address] [place] [address] 10122 U Preg Internal Control Pass [facility] Comment on above: Performed By: #### 3 [id number] ####[facility] (DEFAULT)[address] [place] [address] 34931 UA Npemq7vf 10-11-2020 UA Bacteria Rare [facility] Comment on above: Performed By: #### 2 [id number], [id number] ####[facility] (DEFAULT)[address] [place] [address] 67053 UA RBC 0-2 Normal [facility] Comment on above: Performed By: #### 2 [id number], [id number] ####[facility] (DEFAULT)[address] [place] [address] 04588 UA Squam Epi Few Normal [facility] Comment on above: Performed By: #### 2 [id number], [id number] ####[facility] (DEFAULT)[address] [place] [address] 33588 UA WBC 0-2 Normal [facility] Comment on above: Performed By: #### 2 [id number], [id number] ####[facility] (DEFAULT)[address] [place] [address] 84743 UA w Micro, if Ind Standardo n 10-11-2020 Micro? Indicated Normal [facility] Comment on above: Performed By: #### 2 [id number], [id number] ####[facility] (DEFAULT)[address] [place] [address] 05784 Breakpoint UA Normal [facility] Comment on above: Performed By: #### 2 [id number], [id number] ####[facility] (DEFAULT)[address] [place] [address] 69125 Color (U) Yellow Normal [facility] Comment on above: Performed By: #### 2 [id number], [id number] ####[facility] (DEFAULT)[address] [place] [address] 51476 Glucose (U) [Mass/Vol] Negative Normal [facility] Comment on above: Performed By: #### 2 [id number], [id number] ####[facility] (DEFAULT)[address] [place] [address] 91577 Ketones Ql (U) Negative Normal [facility] Comment on above: Performed By: #### 2 [id number], [id number] ####[facility] (DEFAULT)[address] [place] [address] 01537 UA Bilirubin Negative Normal [facility] Comment on above: Performed By: #### 2 [id number], [id number] ####[facility] (DEFAULT)[address] [place] [address] 60955 UA Blood TRACE Abnormal NEGATIVE [facility] Comment on above: Performed By: #### 2 [id number], [id number] ####[facility] (DEFAULT)[address] [place] [address] 92201 UA Clarity CLEAR Normal CLEAR [facility] Comment on above: Performed By: #### 2 [id number], [id number] ####[facility] (DEFAULT)[address] [place] [address] 05827 UA Leuk Est Negative Normal NEGATIVE [facility] Comment on above: Performed By: #### 2 [id number], [id number] ####[facility] (DEFAULT)[address] [place] [address] 30625 UA Nitrite Negative Normal NEGATIVE [facility] Comment on above: Performed By: #### 2 [id number], [id number] ####[facility] (DEFAULT)[address] [place] [address] 88307 UA pH 6.0 Normal 5-8 [facility] Comment on above: Performed By: #### 2 [id number], [id number] ####[facility] (DEFAULT)[address] [place] [address] UA Protein Negative Normal NEGATIVE [facility] Comment on above: Performed By: #### 2 [id number], [id number] ####[facility] (DEFAULT)[address] [place] [address] 97756 UA Spec Grav 1.025 Normal 1.001-1.035 [facility] Comment on above: Performed By: #### 2 [id number], [id number] ####[facility] (DEFAULT)[address] [place] [address] 60347 UA Urobilinogen 0.2 mg/dL Normal 0.2-1.0 [facility] Comment on above: Performed By: #### 2 [id number], [id number] ####[facility] (DEFAULT)[address] [place] [address] Urine Source Clean Catch Normal [facility] Comment on above: Performed By: #### 2 [id number], [id number] ####[facility] (DEFAULT)[address] [place] [address] 42606 US Pelvis Non-OB Completeon 06-21-2021 US Pelvis [...] Dominguez MD 10/11/20 12:29 p Technologist: NATASHA [facility] US Transvaginalon 10-11-2020 US Transvaginal US Pelvis [...] Dominguez MD 10/11/20 12:29 p Technologist: NATASHA [facility] Video Visit - Telehealtho n 01-28-2020 Video Visit - Telehealth Chief Complaint Medication follow up via Harim[employer] video Subjective Interval History/HPI This visit was conducted via two-way, real-time interactive video communications from my office using [employer] due to the restrictions of the COVID-19 pandemic. No physical exam was conducted other than those areas of the body visible to telecommunications with the patient located at [address] [place] [address], with no one else in attendance. If [...] day(s), # 42 tab(s), Refills(s) 5, Pharmacy: [facility]/pharmacy #[id number], 156, cm, 01/28/20 8:32:00 EDT, Height/Length Dosing, 124, kg, 01/28/20 8:32:00 EDT, Weight Dosing 3. High risk medication use (Z79.899: Other applied psychology chair (current) drug therapy) Orders: lamotrigine, 300 mg = 2 tab(s), Oral, Bedtime, # 60 tab(s), Refills(s) 5, Pharmacy: [facility]/pharmacy #[id number], 156, cm, 01/28/20 8:32:00 EDT, Height/Length Dosing, 124, kg, 01/28/20 8:32:00 EDT, Weight Dosing lurasidone, 60 mg = 1 tab(s), Oral, Daily, @supper with food, # 30 tab(s), Refills(s) 5, Pharmacy: [facility]/pharmacy #[id number], 156, cm, 01/28/20 8:32:00 EDT, Height/Length Dosing, 124, kg, 01/28/20 8:32:00 EDT, Weight Dosing metformin, 500 mg = 1 tab(s), Oral, BID, # 60 tab(s), Refills(s) 5, Pharmacy: [facility]/pharmacy #[id number], 156, cm, 01/28/20 8:32:00 EDT, Height/Length [...] Facility 12-17-2023 13:04-0400 Body height 152.4 cm [facility] 12-17-2023 13:04-0400 Body mass index (BMI) [Ratio] 59.5 kg/m2 [facility] 12-17-2023 13:04-0400 Body temperature 97.5 [degF] [facility] 12-17-2023 13:04-0400 Body weight 138.4 kg [facility] 12-17-2023 13:04-0400 Diastolic blood pressure 68 mm[Hg] [facility] 12-17-2023 13:04-0400 Heart rate 92 /min [facility] 12-17-2023 13:04-0400 Respiratory rate 18 /min [facility] 12-17-2023 13:04-0400 SaO2% (BldA) [Mass fraction] 95 % [facility] 12-17-2023 13:04-0400 Systolic blood pressure 125 mm[Hg] [facility] 06-29-2023 11:10-0500 Body height 154.9 cm Lindseykojo Mcmahon CARE AIDE-DENIAL MANAGEMENT REPRESENTATIVE Work Phone: [facility] 06-29-2023 11:10-0500 Body mass index (BMI) [Ratio] 56.08 kg/m2 LindseyZestFinanced[employer]s CARE AIDE-DENIAL MANAGEMENT REPRESENTATIVE Work Phone: [facility] 06-29-2023 11:10-0500 Body weight 134.54 kg Lindsey [employer] CARE AIDE-DENIAL MANAGEMENT REPRESENTATIVE Work Phone: [facility] 06-29-2023 11:10-0500 Diastolic blood pressure 84 mm[Hg] Lindsey Kregel CARE AIDE-DENIAL MANAGEMENT REPRESENTATIVE Work Phone: [facility] 06-29-2023 11:10-0500 Heart rate 93 /min Lindsey [employer] CARE AIDE-DENIAL MANAGEMENT REPRESENTATIVE Work Phone: [facility] 06-29-2023 11:10-0500 SaO2% (BldA) [Mass fraction] 95 % Lindsey Mcmahon CARE AIDE-DENIAL MANAGEMENT REPRESENTATIVE Work Phone: [facility] [employer] [facility] 06-29-2023 11:10-0500 Systolic blood pressure 152 mm[Hg] Lindsey Mcmahon CARE AIDE-DENIAL MANAGEMENT REPRESENTATIVE Work Phone: [facility] [employer] 05-03-2023 13:16-0500 Body mass index (BMI) [Ratio] 54.61 kg/m2 Katerin Doradoer CARE AIDE-DENIAL MANAGEMENT REPRESENTATIVE Work Phone: [facility] 05-03-2023 13:16-0500 Body weight 131.09 kg Katerin Doradoer CARE AIDE-DENIAL MANAGEMENT REPRESENTATIVE [facility] Phone[facility] 05-03-2023 13:16-0500 Diastolic blood pressure 74 mm[Hg] Katerin Doradoer CARE AIDE-DENIAL MANAGEMENT REPRESENTATIVE Work Phone[facility] 05-03-2023 13:16-0500 Heart rate 88 /min Katerin Doradoer CARE AIDE-DENIAL MANAGEMENT REPRESENTATIVE Work Phone: [facility] 05-03-2023 13:16-0500 Respiratory rate 18 /min Katerin Leijachter CARE AIDE-DENIAL MANAGEMENT REPRESENTATIVE Work Phone: [facility] 05-03-2023 13:16-0500 SaO2% (BldA) [Mass fraction] 98 % Katerin Doradoer CARE AIDE-DENIAL MANAGEMENT REPRESENTATIVE Work Phone: [facility] 05-03-2023 13:16-0500 Systolic blood pressure 126 mm[Hg] Katerin Doradoer CARE AIDE-DENIAL MANAGEMENT REPRESENTATIVE Work Phone: [facility] 02-05-2023 09:45-0400 Body height 154.94 cm Jovita Murcia Other [employer] Other 02-05-2023 09:45-0400 Body mass index (BMI) [Ratio] 57.32 kg/m2 Jovita Murcia Other [employer] Other 02-05-2023 09:45-0400 Body temperature 98 [degF] Jovita Murcia Other [employer] Other 02-05-2023 09:45-0400 Body weight 137.62 kg Jovita Murcia Other [employer] Other 02-05-2023 09:45-0400 Respiratory rate 18 /min Jovita Murcia Other [employer] Other 02-05-2023 09:45-0400 SaO2% (BldA) [Mass fraction] 97 % Jovita Murcia Other [employer] Other 12-22-2022 09:30-0400 Diastolic blood pressure 96 mm[Hg] MD Aline Villalobos Work Phone: [facility] 12-22-2022 09:30-0400 Heart rate 60 /min MD Aline Villalobos Work Phone: [facility] 12-22-2022 09:30-0400 Respiratory rate 16 /min MD Aline Villalobos Work Phone: [facility] 12-22-2022 09:30-0400 SaO2% (BldA) [Mass fraction] 99 % MD Aline Villalobos Work Phone: [facility] 12-22-2022 09:30-0400 Systolic blood pressure 154 mm[Hg] MD Aline Villalobos Work Phone: [facility] 12-22-2022 08:06-0400 Body height 152.4 cm MD Aline Villalobos Work Phone: [facility] 12-22-2022 08:06-0400 Body weight 137.89 kg MD Aline Villalobos Work Phone: [facility] 07-22-2022 11:35-0400 Respiratory rate 18 /min Inge Leung DO Work Phone: [employer] 07-22-2022 08:00-0400 Body temperature 99 [degF] Inge Leung DO Work Phone: [employer] 07-22-2022 08:00-0400 Diastolic blood pressure 63 mm[Hg] Inge Leung DO Work Phone: [employer] 07-22-2022 08:00-0400 Heart rate 78 /min Inge Leung DO Work Phone: [employer] 07-22-2022 08:00-0400 SaO2% (BldA) [Mass fraction] 99 % Inge Leung DO Work Phone: [employer] 07-22-2022 08:00-0400 Systolic blood pressure 137 mm[Hg] Inge Leung DO Work Phone: [employer] 07-18-2022 17:35-0400 Body height 154.94 cm Alesha Cortez Other [employer] Other 07-18-2022 17:35-0400 Body mass index (BMI) [Ratio] 62.16 kg/m2 Alesha Cortez Other [employer] Other 07-18-2022 17:35-0400 Body temperature 96 [degF] Alesha Cortez Other [employer] Other 07-18-2022 17:35-0400 Body weight 149.23 kg Alesha Cortez Other [employer] Other 07-18-2022 17:35-0400 Respiratory rate 18 /min Alesha Cortez Other [employer] Other 07-18-2022 17:35-0400 SaO2% (BldA) [Mass fraction] 97 % Alesha Cortez Other [employer] Other 07-15-2022 17:16-0400 Diastolic blood pressure 83 mm[Hg] Inge Piazza DO Work Phone: [employer] 07-15-2022 17:16-0400 Heart rate 97 /min Inge Piazza DO Work Phone: [employer] 07-15-2022 17:16-0400 Respiratory rate 16 /min Inge Padillaazza DO Work Phone: [employer] 07-15-2022 17:16-0400 Systolic blood pressure 142 mm[Hg] Inge Piazza DO Work Phone: [employer] 07-15-2022 15:44-0400 Body temperature 98.49 [degF] Inge Piazza DO Work Phone: [employer] 03-21-2022 10:30-0500 Body height 154.94 cm [place] Other [employer] Other 03-08-2022 02:06-0500 Body weight 141.0696 kg LILIA RUIZ [facility] Comment on above: Performed By: #### DAPHNE TOBIAS #### [facility] [address] [place] [address] Dr. Valeria Farris Encounters Encounter Date Encounter Type Care Provider Facility Start: 01-15-2024 End: 01-15-2024 ambulatory CLAUDIA DUFF [facility] Start: 01-15-2024 End: 01-15-2024 ambulatory NOAH NICHOLAS Not Available Start: 01-03-2024 End: 01-03-2024 ambulatory NOAH NICHOLAS Not Available Start: 12-31-2023 End: 12-31-2023 ambulatory CLAUDIA E JIAN [facility] Start: 12-29-2023 End: 12-29-2023 Emergency department patient visit CHAS BALDERAS [facility] Start: 12-17-2023 End: 12-17-2023 ambulatory [facility] Work Phone: Start: 12-17-2023 End: 12-17-2023 Patient encounter procedure [facility] Physician [facility] Work Phone: Start: 12-17-2023 End: 12-17-2023 ambulatory NOAH NICHOLAS Not Available Start: 12-06-2023 End: 12-06-2023 ambulatory [facility] Start: 11-29-2023 End: 11-29-2023 ambulatory NOAH NICHOLAS Not Available Start: 11-12-2023 End: 11-12-2023 ambulatory CHARMAINE MARIKA Not Available Start: 11-08-2023 End: 11-08-2023 ambulatory [facility] Start: 10-29-2023 End: 10-29-2023 ambulatory NOAH NICHOLAS Not Available Start: 10-11-2023 End: 10-11-2023 ambulatory NOAH NICHOLAS Not Available Start: 10-09-2023 End: 10-09-2023 ambulatory [facility] Start: 09-11-2023 End: 09-11-2023 ambulatory NOAH NICHOLAS Not Available Start: 09-10-2023 End: 09-11-2023 Emergency department patient visit MANUEL HERBERT [facility] Start: 08-28-2023 End: 08-28-2023 Emergency department patient visit CHAS SHERRIE [facility] Start: 08-24-2023 End: 08-24-2023 ambulatory CHAS JANNIEYAZMIN Not Available Start: 08-14-2023 End: 08-14-2023 ambulatory NOAH NICHOLAS Not Available Start: 07-19-2023 End: 07-19-2023 ambulatory CHARMAINE MARIKA Not Available Start: 07-02-2023 Telephone encounter Lindsey philip CARE AIDE-DENIAL MANAGEMENT REPRESENTATIVE Work Phone: [facility] Comment on above: Sleep Lab (PSG) Start: 06-29-2023 End: 06-29-2023 ambulatory [facility] Start: 06-29-2023 End: 06-29-2023 Office outpatient new 45 minutes [facility] CARE AIDE-DENIAL MANAGEMENT REPRESENTATIVE Work Phone: [facility]Sleep [facility] Comment on above: MOLINA (obstructive sle ep apnea) (Primary Dx); Morning headache; Memory loss; Fatigue, unspecified type; Snoring Start: 06-24-2023 Refill Katerin grewal CARE AIDE-DENIAL MANAGEMENT REPRESENTATIVE Work Phone: [facility] Start: 06-14-2023 End: 06-14-2023 ambulatory RAZIA MULLER [facility] Start: 06-06-2023 Refill Katerin grewal CARE AIDE-DENIAL MANAGEMENT REPRESENTATIVE Work Phone: [facility] Start: 06-05-2023 Orders Only Sadaf Louis [facility] Comment on above: Low back pain, unspe cified back pain laterality, unspecified chronicity, unspecified whether sciatica present (Primary Dx) Start: 05-29-2023 Telephone encounter Orders Sup port User Transcribe [facility] Comment on above: Sleep Lab Start: 05-22-2023 End: 05-22-2023 ambulatory CHAS BALDERAS Not Available Start: 05-16-2023 End: 05-17-2023 Emergency department patient visit LINA HUGHES [facility] Start: 05-15-2023 End: 05-15-2023 ambulatory NOAH PETERSON Not Available Start: 05-03-2023 End: 05-03-[address] [facility] Start: 05-03-2023 End: 05-03-2023 Office outpatient visit 15 minutes Katerin Haynes CARE AIDE-DENIAL MANAGEMENT REPRESENTATIVE Work Phone: [facility] Comment on above: Acute non-recurrent maxillary sinusitis (Primary Dx) Start: 04-19-2023 End: 04-19-2023 ambulatory CHARMAINE HAIRSTON Not Available Start: 02-05-2023 End: 02-05-2023 ambulatory Jovita Murcia Other [employer] Other Start: 02-05-2023 Office outpatient vi sit 15 minutes Jovita Murcia [facility] Start: 12-22-2022 End: 12-22-2022 ambulatory Aline Villalobos Facility:[facility] Start: 12-22-2022 End: 12-22-2022 ambulatory MD Aline Villalobos Work Phone: [facility] Work Phone: Start: 12-22-2022 End: 12-22-2022 Patient encounter procedure MD Aline Villalobos Work Phone: [facility] [place] Work Phone: Start: 12-20-2022 End: 12-20-2022 ambulatory Aline Villalobos Facility:[facility] Start: 12-20-2022 End: 12-20-2022 ambulatory MD Aline Villalobos Work Phone: [facility] Work Phone: Start: 12-20-2022 End: 12-20-2022 Patient encounter procedure MD Aline Villalobos Work Phone: [facility] [place] Work Phone: Start: 09-04-2022 ambulatory RAYSA LINN [...] 07-18-2022 End: 07-18-2022 ambulatory Alesha Cortez Other [employer] Other Start: 07-18-2022 Office outpatient vi sit 25 minutes Alesha Cortez [facility] Start: 07-17-2022 End: 07-17-[address] NOAH PETERSON Facility:[facility] Start: 07-17-2022 Evaluation and management of inpatient DR NOAH PETERSON Facility:[facility] Start: 07-15-2022 End: 07-15-2022 Subsequent hospital visit by physician Igne Leung DO Work Phone: [id number] Labor [...] 03-21-2022 End: 03-21-2022 ambulatory [place] Other [employer] Other Start: 03-21-2022 Office outpatient ne w 30 minutes [place] [facility] Start: 03-19-2022 End: 03-19-2022 ambulatory LILIA RUIZ Facility:[facility] Start: 03-15-2022 End: 03-16-[address] NOAH PETERSON Facility:[facility] Start: 03-03-2022 End: 03-04-[address] NOAH PETERSON Facility:[facility] Start: 02-27-2022 Blood pressure taking Jovita groves Other [employer] Other Start: 01-09-2022 End: 01-10-[address] [...] abnormal cervical Papanicolaou smear Jovita Murcia Other [employer] Other Start: 01-30-2018 End: 01-31-2018 Patient encounter DEFAULT PHYSICIAN Facility:[facility] Procedures Date Procedure Procedure Detail Performing Clinician Start: 12-22-2022 Investigation of transfusion reaction MD Aline Villalobos Work Phone: Start: 07-22-2022 Glucose blood reagent strip Hitesh A [place] DO Work Phone: Start: 07-21-2022 Glucose blood reagent strip Hitesh A [place] DO Work Phone: Start: 07-21-2022 Glucose blood reagent strip Hitesh A Jewel DO Work Phone: Start: 07-21-2022 Glucose blood reagent strip Hitesh A Jewel DO Work Phone: Start: 07-21-2022 Blood count complete auto&auto difrntl wbc Nash E Eleazar DO Work Phone: Start: 07-20-2022 Glucose blood reagent strip Hitesh A [place] DO Work Phone: Start: 07-20-2022 Cul prsmptv [...] in Cervix by Cyto stain Katerin Haynes APRN-DENIAL MANAGEMENT REPRESENTATIVE Work Phone: Start: 12-28-2021 Diabetes mellitus screening Jovita Murcia Other Start: 11-30-2021 Adult depression scr eening assessment Katerin Haynes APRN-DENIAL MANAGEMENT REPRESENTATIVE Work Phone: End: 04-13-2021 screening Jovita Murcia Other End: 07-27-2021 screening Jovita Murcia Other Counseling Jovita Murcia Other Depression screening Jovita Murcia Other visit Jovita Hardeep nicolas Other Plan of Treatment Date Care Activity Detail Author Start: 12-21-2029 DTaP,Tdap and Td Vaccines (7 - Td or Tdap) DTaP,Tdap and Td Vaccines (7 - Td or Tdap) [facility] Start: 12-21-2029 DTaP/Tdap/Td vaccine (7 - Td or Tdap) DTaP/Tdap/Td vaccine (7 - Td or Tdap) [facility] Start: 05-29-2025 Screening for malign ant neoplasm of cervix Pap Smear [facility] Start: 06-28-2024 Adult BMI Screening Adult BMI Screen ing [facility] Start: 06-28-2024 Tobacco Screening Tobacco Screening [facility] Start: 06-13-2024 Adult BMI Screening Adult BMI Screen ing [facility] Start: 05-16-2024 Adult BMI Screening Adult BMI Screen ing [facility] Start: 05-16-2024 Tobacco Screening Tobacco Screening [facility] Start: 05-03-2024 Adult BMI Follow Up Plan Adult BMI Follow Up Plan [facility] Start: 05-03-2024 Adult BMI Screening Adult BMI Screen ing [facility] Start: 05-03-2024 Tobacco Screening Tobacco Screening [facility] Start: 03-12-2024 Adult BMI Follow Up Plan Adult BMI Follow Up Plan [facility] Start: 01-09-2024 End: 01-09-2024 Patient encounter procedure 01/09/2024 9:00 AM EDT Office Visit [facility] [address] [place] [address] Lindsey Mcmahon, CARE AIDE-DENIAL MANAGEMENT REPRESENTATIVE [address] [address] [facility] Start: 10-23-2023 End: 10-23-2023 Clinical Support 10/23/2023 8:00 PM EDT Clinical Support [facility] [address] [place] [address] [facility] Start: 07-11-2023 End: 07-11-2023 Patient encounter procedure 07/11/2023 10:00 AM EDT Office Visit [facility] [address] [place] [address] Lindsey Mcmahon, CARE AIDE-DENIAL MANAGEMENT REPRESENTATIVE [address] [address] [facility] Start: 06-25-2023 End: 06-25-2023 Patient encounter procedure 06/25/2023 10:30 AM EST Office Visit [facility] [address] [place] [address] Terese Valladares CARE AIDE-DENIAL MANAGEMENT REPRESENTATIVE [address] [address] [facility] Start: 06-14-2023 End: 06-14-2023 Patient encounter procedure 06/14/2023 8:15 AM EST Appointment [facility] [address] [place] [address] [facility] Start: 06-05-2023 [...] Office Visit [facility] [address] [place] [phone] Katerin Haynes, CARE AIDE-DENIAL MANAGEMENT REPRESENTATIVE [address] [place], [place] [id number] [facility] Start: 05-28-2023 End: 05-28-2023 Patient encounter procedure 05/28/2023 9:30 AM EST Office Visit [facility] [address] [place] [phone] Terese Valladares, CARE AIDE-DENIAL MANAGEMENT REPRESENTATIVE [address] [address] [facility] Start: 05-18-2023 Hemoglobin A1c measurement A1C test (Diabetic or Prediabetic) [facility] Start: 12-22-2022 COVID-19 Vaccine ( season) COVID-19 Vaccine ( season) [facility] Start: 12-22-2022 Influenza vaccination Influenza Vacc ine [facility] Start: 12-22-2022 Cerebrospinal fluid culture [facility] Start: 12-22-2022 End: 12-22-2022 [facility] Start: 11-30-2022 Depression Screening Depression Scre ening [facility] Start: 11-21-2022 Influenza vaccination Flu vacc ine (Season Ended) [facility] Start: 07-20-2022 End: 07-20-2022 Patient encounter procedure 07/20/2022 Routine Perinatology [facility] Start: 07-13-2022 End: 07-13-2022 Patient encounter procedure 07/13/2022 Routine Perinatology [facility] Start: 07-06-2022 End: 07-06-2022 Patient encounter procedure 07/06/2022 Routine Perinatology [facility] Start: 02-05-2022 Screening for malign ant neoplasm of cervix [facility] Start: 11-21-2021 Influenza vaccination Flu vaccine (# 1) [facility] Start: 01-21-2021 COVID-19 Vaccine (2 - Booster for Hipolito series) COVID-19 Vaccine (2 - Booster for Hipolito series) [facility] Start: 02-05-2013 Screening for malign ant neoplasm of cervix Pap smear [facility] Start: 02-05-2010 Hepatitis C screening Hepatitis C sc reen [facility] Start: 02-05-2007 HIV screening [facility] screen [facility] [facility] [employer] Start: 2004 Depression Screen Depression Screen [facility] Start: 02-05-2002 Lipid panel Lipids [facility] Start: 02-05-1998 Pneumococcal 0-64 ye ars Vaccine (1 - PCV) Pneumococcal 0-64 years Vaccine (1 - PCV) [facility] Start: 02-05-1993 Varicella vaccine (1 of 2 - 2-dose childhood series) Varicella vaccine (1 of 2 - 2-dose childhood series) [facility] Bacteria identified in Unspecified specimen by Aerobe culture [facility] Bacteria identified in Unspecified specimen by Anaerobe culture [facility] End: 07-15-2022 COVID-19, Rapid COVID-19, Rapid Microbiology STAT One Time for 1 Occurrences starting 07/15/2022 until 07/15/2022 [employer] Phone: Comment on above: One Time for 1 Occur rences starting 07/15/2022 until 07/15/2022 CT CHEST PULMONARY EMBOLISM W CONTRAST CT CHEST PULMONARY EMBOLISM W CONTRAST Imaging STAT 07/15/2022 5:48 PM EDT [facility] [employer] Phone: Culture, Strep B Scr een, Vaginal/Rectal Culture, Strep B Screen, Vaginal/Rectal Microbiology [employer] Label Print 07/20/2022 6:56 PM EDT [employer] Phone: EKG 12 Lead EKG 12 Lead ECG Routine 07/15/2022 4:23 AM EDT [employer] Phone: Glucose [Mass/volume ] in Serum or Plasma POCT glucose Point of Care Testing Routine 4X Daily (AC & HS) until discontinued starting 07/20/2022 [employer] Phone: Comment on above: 4X Daily (AC & HS) u ntil discontinued starting 07/20/2022 End: 07-15-2022 Hepatitis C Antibody [employer] Phone: Comment on above: One Time for 1 Occur rences starting 07/15/2022 until 07/15/2022 Meningitis+Encephali tis pathogens DNA and RNA panel - Cerebral spinal fluid by SARANYA with non-probe detection [facility] Microscopic observat ion [Identifier] in Unspecified specimen by Gram stain [facility] Nonrebreather mask oxygen Nonrebreather mask oxygen Respiratory Care Routine As directed - RT (PRN) until discontinued starting 07/15/2022 [employer] Phone: Comment on above: As directed - RT (RI N) until discontinued starting 07/15/2022 Oxygen therapy [[facility] Data Set] Initiate Oxygen Therapy Protocol Respiratory Care Routine Daily until discontinued starting 07/20/2022 [employer] Work Phone: Comment on above: Daily until disconti nued starting 07/20/2022 Patient Education [facility] Lumb ar Puncture Discharge Instructions [facility] Work Phone: PROFILE I PROF ILE I Lab [employer] Label Print 07/15/2022 4:12 PM EDT [employer] Phone: End: 06-28-2024 [facility] Diagnostic [facility] Routine MOLINA (obstructive sleep apnea) 1 Occurrences starting 06/29/2023 until 06/28/2024 [facility] Work Phone: Comment on above: 1 Occurrences starti ng 06/29/2023 until 06/28/2024 End: 07-15-2022 RAPID INFLUENZA A/B ANTIGENS RAPID INFLUENZA A/B ANTIGENS Microbiology STAT One Time for 1 Occurrences starting 07/15/2022 until 07/15/2022 [employer] Phone: Comment on above: One Time for 1 Occur rences starting 07/15/2022 until 07/15/2022 End: 07-20-2022 Specimen hold [employer] Work Phone: Comment on above: Once for 1 Occurrenc es starting 07/20/2022 until 07/20/2022 End: 07-20-2022 Specimen to Pathology Specimen to Pathology Lab Routine One Time for 1 Occurrences starting 07/20/2022 until 07/20/2022 [employer] Phone: Comment on above: One Time for 1 Occur rences starting 07/20/2022 until 07/20/2022 Spirometry panel Incentive linda metry Respiratory Care Routine Every 2hr while awake until discontinued starting 07/20/2022 [employer] Phone: Comment on above: Every 2hr while awak e until discontinued starting 07/20/2022 End: 07-15-2022 Troponin I.cardiac [Mass/volume] in Serum or Plasma Troponin Lab STAT One Time for 1 Occurrences starting 07/15/2022 until 07/15/2022 [employer] Work Phone: Comment on above: One Time for 1 Occur rences starting 07/15/2022 until 07/15/2022 Immunizations Immunization Date Immunization Notes Care Provider Radha bowen 04-21-2014 influenza virus vaccine, unspecified formulation Katerin ALEXIS Work Phone: [facility] NEGATED: Highlighted row has not occurred!07-22-2022 tetanus toxoid, reduced diphtheria toxoid, and acellular pertussis vaccine, adsorbed Inge Mojicaza DO Work Phone: [facility] Payers Date Payer Category Payer Unknown 2022 Unknown [id number] 2022 Medicaid [id number] 2022 Medicaid [place] [id number] 2022-Present [address] [place] [address] [id number]. 7.3.228658.315 1992 Unknown [id number] 2.16.840.1.807901.3.579.2. 647 1992 Unknown [id number] 2.16.840.1.502699.3.579.2. 593 1992 Unknown [id number] 2.16.840.1.420638.3.579.2. 593 1992 Unknown [id number] 2.16.840.1.927812.3.579.2. 593 1992 Unknown [id number] 2.16.840.1.561717.3.579.2. 593 1992 Unknown [id number] 2.16.840.1.111204.3.579.2. 593 1992 Unknown [id number] 2.16.840.1.784250.3.579.2. 593 1992 Unknown [id number] 2.16.840.1.841027.3.579.2. 593 1992 Unknown [id number] 2.16.840.1.626752.3.579.2. 593 1992 Unknown [id number] 2.16.840.1.162999.3.579.2. 593 1992 Unknown [id number] 2.16.840.1.853747.3.579.2. 593 1992 Unknown [id number] 2.16.840.1.783663.3.579.2. 593 1992 Unknown [id number] 2.16.840.1.473243.3.579.2. 593 1992 Unknown [id number] 2.16.840.1.311901.3.579.2. 593 1992 Unknown [id number] 2.16.840.1.003979.3.579.2. 593 1992 Unknown [id number] 2.16.840.1.398455.3.579.2. 593 1992 Unknown [id number] 2.16.840.1.778094.3.579.2. 593 1992 Unknown [id number] 2.16.840.1.220228.3.579.2. 593 1992 Unknown [id number] 2.16.840.1.472801.3.579.2. 593 1992 Unknown [id number] 2.16.840.1.390114.3.579.2. 593 1992 Unknown [id number] 2.16.840.1.936807.3.579.2. 593 1992 Unknown [id number] 2.16.840.1.002666.3.579.2. 593 1992 Unknown [id number] 2.16.840.1.235684.3.579.2. 593 1992 Unknown [id number] 2.16.840.1.646358.3.579.2. 593 1992 Unknown [id number] 2.16.840.1.148400.3.579.2. 593 1992 Unknown [id number] 2.16.840.1.648183.3.579.2. 593 1992 Unknown [id number] 2.16.840.1.683856.3.579.2. 593 1992 Unknown [id number] 2.16.840.1.692250.3.579.2. 593 1992 Unknown [id number] 2.16.840.1.943755.3.579.2. 593 1992 Unknown [id number] 2.16.840.1.485810.3.579.2. 593 1992 Unknown [id number] 2.16.840.1.924035.3.579.2. 593 1992 Unknown [id number] 2.16.840.1.251827.3.579.2. 593 1992 Unknown [id number] 2.16.840.1.416434.3.579.2. 593 1992 Unknown [id number] 2.16.840.1.063380.3.579.2. 593 1992 Unknown [id number] 2.16.840.1.925941.3.579.2. 593 1992 Unknown [id number] 2.16.840.1.645999.3.579.2. 593 1992 Unknown [id number] 2.16.840.1.377093.3.579.2. 593 1992 Unknown [id number] 2.16.840.1.580243.3.579.2. 593 1992 Unknown [id number] 2.16.840.1.972385.3.579.2. 593 1992 Unknown [id number] 2.16.840.1.838170.3.579.2. 593 1992 Unknown [id number] 2.16.840.1.793882.3.579.2. 593 1992 Unknown [id number] 2.16.840.1.211223.3.579.2. 1286 1992 Unknown [id number] 2.16.840.1.049540.3.579.2. 1286 1992 Unknown [id number] 2.16.840.1.320198.3.579.2. 175 1992 Unknown [id number] 2.16.840.1.068050.3.579.2. 175 1992 Unknown [id number] 2.16.840.1.412854.3.579.2. 175 1992 Unknown [id number] 2.16.840.1.813592.3.579.2. 175 1992 Unknown [id number] 2.16.840.1.771332.3.579.2. 1259 1992 Unknown [id number] 2.16.840.1.229058.3.579.2. 9 1992 Unknown [id number] 2.16.840.1.791322.3.579.2. 9 1992 Unknown [id number] 2.16.840.1.729211.3.579.2. 1259 1992 Unknown [id number] 2.16.840.1.037101.3.579.2. 1259 1992 Unknown [id number] 2.16.840.1.240272.3.579.2. 9 1992 Unknown [id number] 2.16.840.1.295250.3.579.2. 9 1992 Unknown [id number] 2.16.840.1.502207.3.579.2. 1259 1992 Unknown [id number] 2.16.840.1.578586.3.579.2. 1259 1992 Unknown [id number] 2.16.840.1.379571.3.579.2. 9 1992 Unknown [id number] 2.16.840.1.125401.3.579.2. 1259 1992 Unknown [id number] 2.16.840.1.880717.3.579.2. 1259 1992 Unknown [id number] 2.16.840.1.153571.3.579.2. 1259 1992 Unknown [id number] 2.16.840.1.011369.3.579.2. 1259 1992 Unknown [id number] 2.16.840.1.957270.3.579.2. 1286 1992 Unknown [id number] 2.16.840.1.185846.3.579.2. 1286 1992 Unknown [id number] 2.16.840.1.647571.3.579.2. 1286 1992 Unknown [id number] 2.16.840.1.334669.3.579.2. 6 1992 Unknown [id number] 2.16.840.1.455072.3.579.2. 1286 1992 Unknown [id number] 2.16.840.1.881240.3.579.2. 1286 1992 Unknown [id number] 2.16.840.1.971892.3.579.2. 1286 1992 Unknown [id number] 2.16.840.1.117955.3.579.2. 1286 1957 Medicaid [id number] 1.2.840.136526.1.13.239.2. 7.3.958269.315 1959 Private Health Insurance [id number] 1.2.840.072039.1.13.239.2. 7.3.643575.315 1959 Self-pay 1959 Unknown [id number] 1959 Worker's Compensation [id number] 2.16.840.1.729662.19 Medicaid [place] Advantage [id number] [facility] [id number] Private Health Insurance [id number] 2.16.840.1.505178.19 Private Health Insurance [facility] [id number] Unknown [id number] 2.16.840.1.887697.19 Unknown [id number] 2.16.840.1.866061.3.579.2. 593 Unknown [id number] 2.16.840.1.337425.3.579.2. 531 Unknown [id number] 2.16.840.1.216991.3.579.2. 531 Social History Date Type Detail Facility Unknown if ever smoked [employer] Other Start: 06-03-2020 End: 05-03-2023 Sex Assigned At [employer] Other Start: 06-22-2022 End: 06-29-2023 Tobacco smoking status NHIS Ex-smoker [employer] Start: 05-25-2020 End: 12-22-2022 History of tobacco use Current smoker [employer] Phone: End: 11-20-2017 History of tobacco use Cigarette Smoker [employer] Phone: Start: 06-22-2022 End: 06-29-2023 Tobacco use and exposure Smokeless tobacco non-user [employer] Phone: Start: 06-29-2022 End: 06-29-2023 Alcohol intake Ex-drinker (finding) [employer] Phone: Start: 06-22-2022 Tobacco Comment Quit in 2019 06/22/2022 [employer] Phone: Start: 11-20-2021 [employer] Phone: Start: 1990 Sex Assigned At Female [employer] Start: 07-10-2022 End: 07-20-2022 Exposure to SARS-CoV-2 (event) Not sure [employer] Phone: Start: 06-03-2020 End: 11-16-2022 Cigarettes smoked current (pack per day) - Reported 0.5 [facility] Adolescent depressio n screening assessment 2 [facility] Start: 11-30-2021 Education 17 [facility] tem Start: 11-16-2022 Tobacco Comment quit in July [facility] Start: 05-16-2022 Gender identity Identifies as female gender (finding) [facility] Start: 05-25-2022 Sexual orientation Heterosexual (finding) [facility] Medical Equipment Procedure Code Equipment Code Equipment Origin al Text Equipment Identifier Dates BD ULTRA-FINE PE N NEEDLES 29G X 12.7MM MISC [id number] Start: 04-03-2022 ONETOUCH ULTRA strip [id number] Star t: 06-11-2022 DROPLET PEN NEED LES 29G X 12MM MISC [id number] Start: 06-30-2022 Clinical Notes 01-28-2020 to 07-02-2023 [...] in supine position. documented in this encounter [facility] 07-02-2023 Telephone encount er Note 3 order received Scheduled PS[facility] at [facility] on 10/23/23 Mychart confirmation [place] [employer] PSG order & 3/6 Salome notes in Epic With TCO2 monitoring. Please obtain baseline in supine position. [facility] 06-29-2023 History of Presen t illness Narrative [...] you wake up? 6-8 AM Number of wgcbud-cw-lqb-night awakenings per night? 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 CC: MD Lindsey CAMEJO [facility] Office: [phone] 11:18 AM on 06/29/2023 This note is dictated with the use of M*Modal.Please note that this dictation was completed with computer voice recognition software. Quite often unanticipated grammatical, syntax, homophones, and other interpretive errors are inadvertently transcribed by the computer software. Please disregard these errors. Please excuse any errors that have escaped final proofreading. VANESA Mendez 06/29/23 1125 documented in this encounter [facility] 06-29-2023 Instructions VANESA Mendez - 06/29/2023 11:00 AM EST If you re looking for general health and wellness resources, please visit [email or web address] documented in this encounter [facility] 06-29-2023 Evaluation note Diagnosis MOLINA (obstructive sleep apnea)- Primary Obstructive sleep apnea (adult) (pediatric) Morning headache Memory loss Fatigue, unspecified type Snoring Other dyspnea and respiratory abnormality documented in this encounter [facility]2024 Miscellaneous Notes* Telephone Encounter - Ernestina Simpson - 05/29/2023 10:23 AM EST Pt called to schedule a sleep study or appointment with collin Dawn advised we have nothing as of now and either order is in her chart to schedule with gave her the number to sleep medicine in [place] [facility] Note* Telephone Encounter - Ernestina Simpson - 05/29/2023 10:23 AM EST Pt called to schedule a sleep study or appointment with collin Dawn advised we have nothing as of now and either order is in her chart to schedule with gave her the number to sleep medicine in [place] [facility]01-11-2024 History of Present illness Narrative* VANESA Frank - 05/03/2023 1:15 PM EST Images from the original note were not included. [address] [facility] [address] SUBJECTIVE: Patient ID: Yani Stevens is a [...] VANESA Frank 05/03/23 1330 [facility] Evaluation note* Encounter Date Diagnosis [...] not specified, unspecified location (ICD-10 - J01.90) [employer] Other 04-01-2023 History of Present illness Narrative* [...] patient Attending Physician: Dr. Fish Estrada MD Pharmaceutical Detailer Resident 07/22/2022, 12:40 AM Attending Physician Statement [...] patient Attending Physician: Dr. Betina Bush, DO Pharmaceutical Detailer Resident 07/21/2022, 3:02 AM Attending Physician Statement [...] 07/21/2022 10:00 AM documented [facility] Phone: 1(531) 303-988003-30-2023 Evaluation note* Diagnosis RLTCS w/ IUD 07/20/22 [...] affecting documented in this encounter [facility] Work Phone: 1(696) 483-695103-28-2023 Evaluation note* Encounter Date Diagnosis Assessment Notes [...] other viral communicable diseases (ICD-10 - Z20.828) [employer] Other 11-29-2022 Evaluation note* Encounter Date Diagnosis [...] off of work. We will apply for [facility] approval for therapy. [employer] Other 06-21-2021 NoteEducation Materials Obstetrics and Gynecology [...] Follow these instructions at home: ? Take wpmc-ycc-khbvkey and prescription medicines only as told by [...] menstrual period is much (more content not included)...[facility] 01-28-2020 NoteOphthalmology Basics of Medication Management UNDERSTAND [...] caregiver questions about your prescriptions and any jgba-csb-idmvvyf medications, vitamins, herbal or dietary supplements that [...] your caregiver or pharm (more content not included)...[facility] Chief complaint+Reason for visit Narrative* Chief Complaint Congestion, fever Reason for Visit Contact with and (grimm spected) exposure to covid-19 [facility] Work Phone: Evaluation note* Diagnosis 35 [...] condition or complication documented in this encounter [facility] [employer] [facility] Work Phone: evaluation noteNo assessment information available [facility] Work Phone: Evaluation note* Diagnosis Acute non-recurrent maxillary sinusitis- Primary [facility] Diagnosis Low back pain, unspecified back pain laterality, unspecified chronicity, unspecified whether sciatica present- Primary [facility] Diagnosis Onset Date Resolution Status Contact with and (suspected) exposure to covid-19 noneactive [facility] Work Phone: History general Narrative - Reported* Type Description Date Medical History Depression Medical History Bipolar disorder Medical History Hypertension Medical History Hypothyroidism Surgical History cholecystectomy Surgical History wisdom teeth extract Surgical History lipoma removed Surgical History left knee scope x 2 Surgical History hemorrhoidectomy Hospitalization History see above surgical histo ry [facility] Other Hospital Discharge instructions* Attachments The following attachments cannot be sent through Care Everywhere. * Section: Post-op (Albanian) * Preeclampsia: : General Info (Albanian) * Depression: (Albanian) documented in this [facility] Work Phone: Instructions* Attachments The following attachments cannot be sent through Care Everywhere. * Sinusitis in adults (Albanian) documented in this encounterProPAS-Analytik SystemInstructionsNot on file documented in this encounterProPAS-Analytik SystemInstructionsNot on file documented in this encounterProMedica Health SystemInstructionsNot on file documented in this encounterProFairfield [facility] SystemInstructionsNot on file documented in this encounterProFairfield Medical Center System Summary Purpose Family History No Family [...] sleep apnea) Procedures PSG Diagnostic Lindsey Mcmahon, CARE AIDE-DENIAL MANAGEMENT REPRESENTATIVE [address] [facility], [address] [place] [id number] Referral ID Status Reason Start Date Expiration Date V isits Requested Visits Authorized [id number] Pending Review 06/29/2023 06/28/2024 1 1 Additional Source Comments INFORMATION SOURCE (unrecogn ized section and content) DATE CREATED AUTHOR 02/27/2018 [facility] DATE CREATED AUTHOR AUTHOR'S ORGANIZ ATION 09/15/2020 [facility] DATE CREATED AUTHOR AUTHOR'S ORGANIZ ATION 10/17/2020 [facility] DATE CREATED AUTHOR AUTHOR'S ORGANIZ ATION 08/25/2022 [facility] DATE CREATED AUTHOR AUTHOR'S ORGANIZ ATION 01/01/2023 [facility] DATE CREATED AUTHOR AUTHOR'S ORGANIZ ATION 06/30/2023 [facility] DATE CREATED AUTHOR AUTHOR'S ORGANIZ ATION 01/05/2024 [facility] DATE CREATED AUTHOR AUTHOR'S ORGANIZ ATION 01/17/2024 [facility] EPIC DATE CREATED AUTHOR AUTHOR'S ORGANIZ ATION 01/18/2024 [facility] REASON FOR VISIT (unrecogniz ed section and content) Specialty Diagnoses / Procedures Referred By Contac t Referred To Contact Diagnoses 36 weeks gestation of Hitesh Holloway DO [address] [place] [address] [facility] [address] [place] [address] Referral ID Status Reason Start Date Expiration Date Visits Re quested Visits Authorized [id number] 1 1 Reason Comments Nasal Congestion Dizziness Reason Onset Date Comments Sleep Lab 05/29/2023 Reason Comments Med Refill Reason Comments New Patient Sleep ConsultNo prio r sleep studyNot on PAP Specialty Diagnoses / Procedures Referred By Ismael t Referred To Contact Pulmonary Medicine Diagnoses Morning headache Memory loss Razia Muller, CARE AIDE-DENIAL MANAGEMENT REPRESENTATIVE [address] [place] [address] [facility] [address] [place] [address] Referral ID Status Reason Start Date Expiration Date Visits Requested Visits Authorized [id number] Pending Review Specialty Services Required 06/12/2023 06/11/2024 [...] (Given - Provider: Stephany Paige APRN - JOB PLACEMENT SPECIALIST) citalopram (CELEXA) tablet 20 mg 20 mg, [...] Reason: Nausea) 08 (Given - Provider: Lakesha Lorea RN)222 (Given - Provider: Jennifer Porras) 08 [...] 5 days., 2223 (Given - Provider: Elisa cMkeon RN) 0517 (Given - Provider: Elisa Mckeon [...] (NoRateChange - Provider: Stephany Paige APRN - JOB PLACEMENT SPECIALIST)182 (Paused - Provider: Agata Pollard, VIKTORIA - [...] December 17, 2023 End: December 17, 2023 Head Porter Baggage Relationship Specialty Start Date End Date Chas Balderas MD [address] [place] [address] PCP - General Family Medicine 06/29/23 [employer] Bag[employer] Relationship Specialty Start Date End Date Katerin Haynes APRN-VANIA [address] [place] [address] PCP - General Family Medicine 11/23/22 Team Status: Active Member Role Status Dates Aline Villalobos MD Primary Care Provider Active Team Status: Inactive Member Role Status Dates Aline Villalobos MD Primary Care Provider Active Razia Muller , CARE AIDE-FREIGHT TRUCKER-C Attending Provider Active Goals (unrecognized section and [...] BE BASED ON THE PRIMARY CLINICAL RECORDS. [employer] provides no warranty or guarantee of the accuracy or completeness of information in this document.
[2024-01-25 18:28] VITALS: BP 147/80; PULSE 97
[2024-01-25 19:02] LABS: Creatinine Urine Random 30.46 mg/dL (20.00-300.00); Total Protein Urine Random <6.0 mg/dL (<=11.9)
[2024-01-25 19:28] VITALS: BP 172/85; PULSE 86
[2024-01-25 19:35] VITALS: BP 157/72; PULSE 92
[2024-01-25 19:40] VITALS: BP 137/70; PULSE 86
[2024-01-25] MEDS: LABETALOL HCL 200 MG TABLET 300 MG PO (19:50)
[2024-01-25 20:41] VITALS: BP 143/79; PULSE 88
== END 2024-01-25 20:45 | disposition home or self-care (01) ==
LOC: FBC 18:11
PROVIDERS: Admitting Provider Obstetrics & Gynecology; PCP Family Medicine; Visit Provider Obstetrics & Gynecology
DX: O16.3 Unspecified maternal hypertension, third trimester (principal); O26.893 Other specified pregnancy related conditions, third trimester; R51.9 Headache, unspecified; H53.8 Other visual disturbances; M25.511 Pain in right shoulder; R10.13 Epigastric pain; Z3A.36 36 weeks gestation of pregnancy
CPT/HCPCS: 59025; 82570; 84156; G0378; G0379

== ENCOUNTER 2024-01-28 07:19 | Outpatient (OUT) | payer BC, MEDICAID, SELFPAY ==
--- NOTE | 2024-01-28 | US_ITS ---
[address] [address] Patient Name: YANI STEVENS MRN: [facility]:[id number] date: 1990 Sex: F Assigned Patient Location: [facility] Current Patient Location: [facility] Accession/Order Number: [id number] Exam Date: 01/28/2024 07:36 Report Date: 01/28/2024 09:27 At the request of: NOAH PETERSON Procedure: US OB umbilical artery EXAMINATION: US OB umbilical artery HISTORY: Gestational diabetes mellitus O24.419 COMPARISON: No relevant comparison available. TECHNIQUE: Duplex Doppler evaluation of the umbilical arteries. FINDINGS: Umbilical arteries: 1 position: Cephalic presentation, longitudinal lie Amniotic fluid: 15.1 cm, largest fluid pocket 5.2 cm Heart rate: 129 beats minute Proximal umbilical artery: 105/56 cm/s. Resistive index 0.47. Ratio 1.9 Mid umbilical artery: 99/45 cm/s. Resistive index 0.55. Ratio 2.2 Distal umbilical artery: 91/45 cm/s. Resistive index 0.51. Ratio 2.0 Clinical age: 35 weeks 6 days Clinical SUNSHINE: 02/26/2024 Forward flow identified throughout diastole US/US OB umbilical artery IMPRESSION: Normal exam, class 0 Umbilical Artery: Class 0 = Normal umbilical artery blood velocity Class I = increased RI or PI, but still forward flow in diastole Class II = Absent end diastolic flow (AEDF) Class III = Reversal of end diastolic flow (REDF) Resistive Index (RI)<1 Systolic/Diastolic ratio (S:D): An S:D ratio of 2-3 after 34 wks is normal Systolic/Diastolic ratio (S:D): Age 16: 3.01 for the 10th percentile, 4.25 for the 50th percentile, 6.07 for the 90th percentile Age 20: 3.16 for the 10th percentile, 4.04 for the 50th percentile, 5.24 for the 90th percentile Age 24: 2.70 for the 10th percentile, 3.50 for the 50th percentile, 4.75 for the 90th percentile Age 28: 2.41 for the 10th percentile, 3.02 for the 50th percentile, 3.97 for the 90th percentile Age 30: 2.43 for the 10th percentile, 3.04 for the 50th percentile, 3.80 for the 90th percentile Age 32: 2.27 for the 10th percentile, 2.73 for the 50th percentile, 3.57 for the 90th percentile Age 34: 2.08 for the 10th percentile, 2.52 for the 50th percentile, 3.41 for the 90th percentile Age 36: 1.96 for the 10th percentile, 2.35 for the 50th percentile, 3.15 for the 90th percentile Age 38: 1.89 for the 10th percentile, 2.24 for the 50th percentile, 3.10 for the 90th percentile Age 40: 1.88 for the 10th percentile, 2.22 for the 50th percentile, 2.68 for the 90th percentile Age 41: 1.93 for the 10th percentile, 2.21 for the 50th percentile, 2.55 for the 90th percentile Age 42: 1.91 for the 10th percentile, 2.51 for the 50th percentile, 3.21 for the 90th percentile Uteroplacental Artery: Resistive Index (RI): Normal=<0.55 High Resistance=Bilateral notches (after 26 wks) and RI>0.55. Unilateral notches (after 26 wks) and RI>0.65 Systolic/Diastolic ratio (S:D) = 2-3 is normal after 32 weeks. Electronically authenticated by: ALINE GALICIA Date: 01/28/2024 09:27
--- NOTE | 2024-01-28 | US_ITS ---
[address] [address] Patient Name: YANI STEVENS MRN: [facility]:[id number] date: 1990 Sex: F Assigned Patient Location: [facility] Current Patient Location: [facility] Accession/Order Number: [id number] Exam Date: 01/28/2024 07:36 Report Date: 01/28/2024 09:20 At the request of: NOAH PETERSON Procedure: US OB BPP w non-stress EXAMINATION: US OB BPP w non-stress HISTORY: Gestational diabetes mellitus O24.419 COMPARISON: No relevant comparison available. TECHNIQUE: Ultrasound biophysical profile was performed in the radiology department. non-reactive stress testing was performed by nursing staff in the birthing center. FINDINGS: BREATHING MOVEMENTS: 2 GROSS BODY MOVEMENTS: 2 TONE: 2 QUALITATIVE AMNIOTIC FLUID VOLUME: 2 PRESENTATION: Cephalic HEART RATE: 129 bpm AMNIOTIC FLUID VOLUME: 18.1 cm GESTATIONAL AGE: 35 weeks 6 days US/US OB BPP w non-stress IMPRESSION: Total biophysical profile score: 8/8 Electronically authenticated by: ALINE GALICIA Date: 01/28/2024 09:20
--- OUTSIDE RECORDS SUMMARY | 2024-01-28 07:23 | XMS_ITS | CCD ---
Author Organization [facility] Care Team Providers Care Entrepreneur Name Role Phone PHYSICIAN, DEFAULT Unavailable Unavailable [...] NADERER, DR CHAS Norman Primary Care Unavailable HARTSFIELD, DR ALINE Henriquez Consulting Unavailable NICHOLAS, DR ZAMORA Consulting Unavailable KARASIK ., DR ODUGHERTY Admitting Unavailabl e KARASIK ., DR DOUGHERTY Consulting Unavailabl e KARASIK ., DR DOUGHERTY Attending Unavailabl e NADERER, DR CHAS Norman Primary Care Unavailable KARASIK ., DR DOUGHERTY Attending Unavailabl e KARASIK ., DR DOUGHERTY Admitting Unavailabl e KARASIK ., DR DOUGHERTY Consulting Unavailabl e FAWMEGAN, [facility] Primary Care Unavailable NICHOLAS, DR ZAMORA [...] Consulting Unavailable JIAN, DAV Attending Unavailable DEREK, [facility] Primary Care Unavailable DAV VILLAR Admitting [...] E Attending Unavailable Jovita Murcia Unavailable Dallas LEWIS-STAFF PSYCHOLOGIST, Katerin Primary Care Provide r [facility] Primary Care Provide r Sherrie TENORIO, Chas Primary Care Provider [phone] LINDSEY MCMAHON Attending Unavailable MULLER, RAZIA Referring Unavailable NADEREWendi, CHAS Primary Care Unavailable SCHLUCRECIA, KATERIN Attending Unavailable SCHLACHTCRISSY, KATERIN Referring Unavailable SCHPRCHT, KATERIN Primary Care Unavailable PERNI, MATEO C Referring Unavailable NADERER, [facility] Primary Care Unavailabl e PERNI, MATEO C Referring Unavailable NADERER, [facility] Primary Care Unavailabl e PERNI, MATEO C Referring Unavailable NADERER, [facility] Primary Care Unavailbrinda e CLAUDIA VILLAR Admitting Unavailable CLAUDIA VILLAR Attending Unavailable NADERER, [facility] Primary Care UnavailCHARMAINE Torres Attending Unavailable NICHOLAS, NOAH Attending Unavailable NADEREWendi, CHAS Attending Unavailable NICHOLAS, NOAH Attending Unavailable NADERER, CHAS Attending Unavailable NICHOLAS, NOAH Attending Unavailable NICHOLAS, NOAH Attending Unavailable NICHOLAS, NOAH Attending Unavailable MARIKA, CHARMAINE Attending Unavailable NICHOLAS, NOAH Attending Unavailable NICHOLAS, NOAH Attending Unavailable NICHOLAS, NOAH Attending Unavailable NICHOLAS, NOAH Attending Unavailable [facility] Primary Care Unavailable BONITA COFFMAN Attending Unavailable [facility]AS Primary Care Unavailable MANUEL GODINEZ Attending Unavailable HERBERT, MANUEL Attending Unavailable MANUEL GODINEZ Referring Unavailable [facility] CHAS Primary Care Unavailable [facility] CHAS Primary Care Unavailable KANIKA VIDAL Attending Unavailable CLAUDIA DUFF Admitting Unavailable CLAUDIA DUFF Attending Unavailable CHAS BALDERAS Primary Care Unavailable SCHPRCHTCRISSY, KATERIN Primary Care Unavailable CLAUDIA SOLARES Attending [...] [MORPHINE] Drug Allergy 09-18-19 18 hivsushma, Rash [facility] Other (16 sources) Codeine; Translations: [CODEINE] Drug Allergy 06-06-19 23 [facility] (13 sources) Penicillins; Translations: [PENICILLINS] Propensity to adverse reactions to drug 02-22-20 16 Anaphylaxis, Shortness Of Breath [facility] Work Phone: (1 source) Codeine Drug Allergy 07-30-19 22 [facility] (1 source) Morphine Drug Allergy [facility] (1 source) Codeine Drug Allergy 12-23-19 23 [facility] (1 source) Morphine Drug Allergy 05-25-19 21 [facility] (1 source) Pseudoephedrine Drug Allergy 02-22-20 22 Unknown [facility] Other (1 source) Allergies Reconciled Propensity to adverse reactions 02-28-20 Unknown [facility] Other (1 source) Substance with penicillin structure and antibacterial mechanism of action (substance) Drug allergy 02-28-20 22 Unknown [facility] Other (1 source) Morphine Sulfate (Concentrate) *ANALGESICS - OPIOI Propensity to adverse reactions 02-28-20 22 Unknown [facility] Other (9 sources) Doxycycline; Translations: [DOXYCYCLINE] Drug Allergy 02-08-20 23 [facility] (1 source) 12 Hour Decongestant Allergy to substance 12-17-19 24 Unknown Reaction [facility] Medications Current Medications Medication Drug Class(es) [...] as needed Orally every 6 hrs Active [id number] 200 actuat albuterol 0.09 mg/actuat metered dose [...] 06-20-2022 PROFE 391.3 (180 Fe) MG CAPS Bu433-Mwmv-Lflup Acid (1 source) Start: 12-17-2023 take 1 tablet by mouth once daily [id number]-Vdqzx Acid Active 1 TAB PO Daily December [...] Orally once a d ay Active levonorgestrel 0.568051 mg/hr intrauterine system (3 sources) Progestin, Progestin-containing [...] tablet 0 11/16/2017 Active polyethylene glycol 3350 25188 mg powder for oral solution (3 sources) [...] nursing home (current) use of insulin; Translations: [CORRECTION CURRENT USE OF INSULIN] Onset: 07-14-2022 Episodic [...] width (RBC) [Ratio] 13.3 % Normal 11.5-15.0 [facility] Comment on above: Performed By: #### C JASON LÓPEZ, 3084-, 253-0 #### [facility] ([id number]) [address] [place] [address] 24280 Hematocrit (Bld) [Volume fraction] 33.1 % Low 35-47 [facility] Comment on above: Performed By: #### C JASON LÓPEZ, 308-, 2532-0 #### [facility] ([id number]) [address] [place] [address] 57231 Hemoglobin (Bld) [Mass/Vol] 11.6 g/dL Low 11.7-15.5 [facility] Comment on above: Performed By: #### C MARIBEL, CMP, 4-1, 2532-0 #### [facility] ([id number]) [address] [place] [address] 20094 MCH (RBC) [Entitic mass] 29.3 pg Normal 27-34 [facility] Comment on above: Performed By: #### Kaushik LÓPEZ CMP, 4-1, 2532-0 #### [facility] ([id number]) [address] [place] [address] 55491 MCHC (RBC) [Mass/Vol] 35.1 g/dL Normal 32-36 [facility] Comment on above: Performed By: #### Kaushik LÓPEZ CMP, 4-, 2532-0 #### [facility] ([id number]) [address] [place] [address] 86508 MCV (RBC) [Entitic vol] 83 fL Normal 80-100 [facility] Comment on above: Performed By: #### Kaushik LÓPEZ CMP, 3083-, 2532-0 #### [facility] ([id number]) [address] [place] [address] 96379 Platelet mean volume (Bld) [Entitic vol] 8.6 fL Normal 7-12 [facility] Comment on above: Performed By: #### Kaushik LÓPEZ CMP, 3083-, 2531-0 #### [facility] ([id number]) [address] [place] [address] 93095 Platelets (Bld) [#/Vol] 190 10*3/uL Normal 150-450 [facility] Comment on above: Performed By: #### Kaushik BC, CMP, 4-1, 2532-0 #### [facility] ([id number]) [address] [place] [address] 44838 RBC COUNT 3.97 X10E12/L Normal 3.80-5.20 [facility] Comment on above: Performed By: #### C BC, CMP, 3084-1, 2532-0 #### [facility] ([id number]) [address] [place] [address] 20683 WBC (Bld) [#/Vol] 10.0 10*3/uL Normal 4.0-11.0 [facility] Comment on above: Performed By: #### C BC, CMP, 3084-1, 2532-0 #### [facility] ([id number]) [address] [place] [address] 04222 COMPREHENSIVE METABOLIC PANE Jaylan 01-15-2024 Albumin [Mass/Vol] 2.9 g/dL Low 3.2-5.3 [facility] Comment on above: Performed By: #### Kaushik BC, CMP, 3084-1, 2532-0 #### [facility] ([id number]) [address] [place] [address] 47865 ALP [Catalytic activity/Vol] 99 U/L Normal 39-130 [facility] Comment on above: Performed By: #### C BC, CMP, 3084-1, 2532-0 #### [facility] ([id number]) [address] [place] [address] 91450 ALT [Catalytic activity/Vol] 18 U/L Normal 0-31 [facility] Comment on above: Performed By: #### Kaushik BC, CMP, 3084-1, 2532-0 #### [facility] ([id number]) [address] [place] [address] 45205 Anion gap [Moles/Vol] 8 mmol/L Normal 5-15 [facility] Comment on above: Performed By: #### C BC, CMP, 3084-1, 2532-0 #### [facility] ([id number]) [address] [place] [address] 80526 AST [Catalytic activity/Vol] 17 U/L Normal 0-41 [facility] Comment on above: Performed By: #### Kaushik LÓPEZ, CMP, 3084-1, 2532-0 #### [facility] ([id number]) [address] [place] [address] 02273 Bilirubin [Mass/Vol] 0.2 mg/dL Low 0.3-1.2 [facility] Comment on above: Performed By: #### Kaushik LÓPEZ, CMP, 3083-, 2532-0 #### [facility] ([id number]) [address] [place] [address] 44486 Calcium [Mass/Vol] 8.7 mg/dL Normal 8.5-10.5 [facility] Comment on above: Performed By: #### Kaushik LÓPEZ CMP, 3083-, 2532-0 #### [facility] ([id number]) [address] [place] [address] 75669 Chloride [Moles/Vol] 107 mmol/L Normal 98-109 [facility] Comment on above: Performed By: #### Kaushik LÓPEZ CMP, 3083-, 2532-0 #### [facility] ([id number]) [address] [place] [address] 80303 CO2 [Moles/Vol] 23 mmol/L Normal 22-32 [facility] Comment on above: Performed By: #### Kaushik LÓPEZ CMP, 3083-, 2532-0 #### [facility] ([id number]) [address] [place] [address] 12532 Creatinine [Mass/Vol] 0.52 mg/dL Normal 0.40-1.00 [facility] Comment on above: Result Comment: METH OD TRACEABLE TO IDMS STANDARD Performed By: #### Kaushik LÓPEZ, CMP, 3084-1, 2532-0 #### [facility] ([id number]) [address] [place] [address] 67393 eGFR (CKD-EPI) NON-RACE DEPENDENT >90 Normal >59 [facility] Comment on above: Result Comment: Reported eGFR is based on the CKD-EPI 2020 equation that does not use a race coefficient. Performed By: #### Kaushik LÓPEZ CMP, 3084-1, 2532-0 #### [facility] ([id number]) [address] [place] [address] 24385 Glucose [Mass/Vol] 106 mg/dL High 65-99 [facility] Comment on above: Performed By: #### Kaushik LÓPEZ CMP, 4-1, 2532-0 #### [facility] ([id number]) [address] [place] [address] 52201 Potassium [Moles/Vol] 3.7 mmol/L Normal 3.5-5.0 [facility] Comment on above: Performed By: #### Kaushik LÓPEZ CMP, 3083-, 2531-0 #### [facility] ([id number]) [address] [place] [address] 11920 Protein [Mass/Vol] 6.4 g/dL Normal 6.0-8.0 [facility] Comment on above: Performed By: #### Kaushik LÓPEZ CMP, 3084-, 2532-0 #### [facility] ([id number]) [address] [place] [address] 29354 Sodium [Moles/Vol] 138 mmol/L Normal 134-146 [facility] Comment on above: Performed By: #### Kaushik LÓPEZ CMP, 3083-1, 253-0 #### [facility] ([id number]) [address] [place] [address] 37371 Urea nitrogen [Mass/Vol] 9 mg/dL Normal 5-23 [facility] Comment on above: Performed By: #### Kaushik LÓPEZ CMP, 3084-1, 2532-0 #### [facility] ([id number]) [address] [place] [address] 27923 LDH [Catalytic activity/Vol] on 01-15-2024 LDH 143 U/L Normal 100-235 [facility] Comment on above: Performed By: #### B PHYLLIS, CBCA #### [facility] ([id number]) [address] [place] [address] 53782 URIC ACIDon 01-15-2024 Urate [Mass/Vol] 4.5 mg/dL Normal 2.6-7.2 [facility] Comment on above: Performed By: #### C BC, CMP, 3084-1, 2532-0 #### [facility] ([id number]) [address] [place] [address] 75216 URINALYSISon 01-15-2024 Bilirubin Ql (U) Negative Normal NEG [facility] Comment on above: Performed By: #### Curtis FERGUSON, CBCA #### [facility] ([id number]) [address] [place] [address] [place] [address] BLOOD/HGB Trace Abnormal NEG [facility] Comment on above: Performed By: #### Curtis FERGUSON, CBCA #### [facility] ([id number]) [address] [place] [address] 99608 Color (U) YELLOW Normal YELLOW [facility] Comment on above: Performed By: #### Curtis FERGUSON, CBCA #### [facility] ([id number]) [address] [place] [address] 74559 Glucose Ql (U) Negative Normal NEG [facility] Comment on above: Performed By: #### Curtis FERGUSON, CBCA #### [facility] ([id number]) [address] [place] [address], [place] [address] Ketones Ql (U) Negative Normal NEG [facility] Comment on above: Performed By: #### B PHYLLIS, CBCA #### [facility] ([id number]) [address] [place] [address] Leukocyte esterase Test strip Ql (U) Negative Normal NEG [facility] Comment on above: Performed By: #### B PHYLLIS, CBCA #### [facility] ([id number]) [address] [place] [address] 30895 Nitrite Ql (U) Negative Normal NEG [facility] Comment on above: Performed By: #### B PHYLLIS, CBCA #### [facility] ([id number]) [address] [place] [address] 84913 pH (U) 7.0 [pH] Normal 5.0-8.5 [facility] Comment on above: Performed By: #### B PHYLLIS, CBCA #### [facility] ([id number]) [address] [place] [address] 08191 Protein Ql (U) Negative Normal NEG [facility] Comment on above: Performed By: #### B PHYLLIS, CBCA #### [facility] ([id number]) [address] [place] [address] 22935 R.B.CELLS 0 /hpf Normal 0-5 [facility] Comment on above: Performed By: #### B PHYLLIS, CBCA #### [facility] ([id number]) [address] [place] [address] 95477 Specific gravity (U) [Rel density] 1.015 Normal 1.003-1.035 [facility] Comment on above: Performed By: #### B PHYLLIS, CBCA #### [facility] ([id number]) [address] [place] [address] 29261 SQUAMOUS EPITHELIUM 2 to 5 Normal 0-5 [facility] Comment on above: Performed By: #### B PHYLLIS, CBCA #### [facility] ([id number]) [address] [place] [address] 77739 TURBIDITY CLEAR Normal CLEAR [facility] Comment on above: Performed By: #### B PHYLLIS, CBCA #### [facility] ([id number]) [address] [place] [address] 13206 Urobilinogen Qn (U) 0.2 {Manolo'U}/dL Normal <1.1 [facility] Comment on above: Performed By: #### B PHYLLIS, CBCA #### [facility] ([id number]) [address] [place] [address] 35861 W.B.CELLS 2 to 5 Normal 0-5 [facility] Comment on above: Performed By: #### B PHYLLIS, CBCA #### [facility] ([id number]) [address] [place] [address] 45333 Chlamydia/GC,DNA Ampon 12-31 Chlamydia Probe Negative Normal NEG [facility] Comment on above: Result Comment: CHLA [...] GLYHGB, TSH, LUPPRO, FT4 #### [facility] WO Funding [address] [place] [address] Hooker Inspector: Gideon Bullock MD #### AAFPM #### [address] [address] Hooker Inspector: Gideon Bullock MD [address] [address] Hooker Inspector: Fantasma Wood MD #### AF5MUT, AMTHFR, APTMUT #### [facility] [address] [place] [address] Hooker Inspector: Fantasma Wood MD Gonorrhea Probe Negative Normal NEG [facility] Comment on above: Result Comment: NEIS [...] HOCYS, GLYHGB, TSH, LUPPRO, FT4 #### [address] [address] Hooker Inspector: Gideon Bullock MD #### AAFPM #### [address] [address] Hooker Inspector: Gideon Bullock MD [facility] [address] [place] [address] Hooker Inspector: Fantasma Wood MD #### AF5MUT, AMTHFR, APTMUT #### [facility] [address] [place] [address] Hooker Inspector: Fantasma Wood MD CBC with Diffon 12-31-2023 Abs. Basophil 0.03 k/uL Normal 0.00-0.20 [facility] Comment on above: Performed By: #### U VIVIEN URTPRT #### [facility] [address] [place] [address] Hooker Inspector: Gideon Bullock MD Abs.Imm.Granulocyte 0.04 k/uL Normal 0.00-0.30 [facility] Comment on above: Performed By: #### U AMIKaushik URTPRT #### [address] [address] Hooker Inspector: Gideon Bullock MD Abs.Neutrophil (Seg) 5.25 k/uL Normal 1.50-8.10 [facility] Comment on above: Performed By: #### U AMIC, URTPRT #### [address] [address] Hooker Inspector: Gideon Bullock MD Basophils/100 WBC (Bld) 0 % Normal 0-2 [facility] Comment on above: Performed By: #### U AMIC, URTPRT #### [address] [address] Hooker Inspector: Gideon Bullock MD Eosinophils (Bld) [#/Vol] 0.18 10*3/uL Normal 0.00-0.44 [facility] Comment on above: Performed By: #### U AMIC, URTPRT #### [address] [address] Hooker Inspector: Gideon Bullock MD Eosinophils/100 WBC (Bld) 2 % Normal 1-4 [facility] Comment on above: Performed By: #### U AMIC, URTPRT #### [address] [address] Hooker Inspector: Gideon Bullock MD Erythrocyte distribution width (RBC) [Ratio] 13.1 % Normal 11.8-14.4 [facility] Comment on above: Performed By: #### U AMIC, URTPRT #### [address] [address] Hooker Inspector: Gideon Bullock MD Hematocrit (Bld) [Volume fraction] 35.1 % Low 36.3-47.1 [facility] Comment on above: Performed By: #### U AMIC, URTPRT #### [facility] WO Funding [address] [place] [address] Hooker Inspector: Gideon Bullock MD Hemoglobin (Bld) [Mass/Vol] 11.9 g/dL Normal 11.9-15.1 [facility] Comment on above: Performed By: #### U AMIC, URTPRT #### [address] [address] Hooker Inspector: Gideon Bullock MD Immature granulocytes/100 WBC (Bld) 1 % High 0 [facility] Comment on above: Performed By: #### U AMIC, URTPRT #### [address] [address] Hooker Inspector: Gideon Bullock MD Lymphocytes (Bld) [#/Vol] 1.81 10*3/uL Normal 1.10-3.70 [facility] Comment on above: Performed By: #### U AMIC, URTPRT #### [address] [address] Hooker Inspector: Gideon Bullock MD Lymphocytes/100 WBC (Bld) 23 % Low 24-43 [facility] Comment on above: Performed By: #### U AMIC, URTPRT #### [address] [address] Hooker Inspector: Gideon Bullock MD MCH (RBC) [Entitic mass] 28.9 pg Normal 25.2-33.5 [facility] Comment on above: Performed By: #### U AMIC, URTPRT #### [place] [address] Hooker Inspector: Gideon Bullock MD MCHC (RBC) [Mass/Vol] 33.9 g/dL Normal 28.4-34.8 [facility] Comment on above: Performed By: #### U AMIC, URTPRT #### [address] [address] Hooker Inspector: Gideon Bullock MD MCV (RBC) [Entitic vol] 85.2 fL Normal 82.6-102.9 [facility] Comment on above: Performed By: #### U AMIC, URTPRT #### [address] [address] Hooker Inspector: Gideon Bullock MD Monocytes (Bld) [#/Vol] 0.62 10*3/uL Normal 0.10-1.20 [facility] Comment on above: Performed By: #### U AMIC, URTPRT #### [address] [address] Hooker Inspector: Gideon Bullock MD Monocytes/100 WBC (Bld) 8 % Normal 3-12 [facility] Comment on above: Performed By: #### U AMIC, URTPRT #### [address] [address] Hooker Inspector: Gideon Bullock MD Neutrophil (Seg) 66 % High 36-65 [facility] Comment on above: Performed By: #### U AMIC, URTPRT #### [address] [address] Hooker Inspector: Gideon Bullock MD NRBC Automated 0.0 per [address] [facility] Comment on above: Performed By: #### U AMIC, URTPRT #### [address] [address] Hooker Inspector: Gideon Bullock MD Platelet mean volume (Bld) [Entitic vol] 10.9 fL Normal 8.1-13.5 [facility] Comment on above: Performed By: #### U AMIC, URTPRT #### [address] [address] Hooker Inspector: Gideon Bullock MD Platelets (Bld) [#/Vol] 175 10*3/uL Normal 138-453 [facility] Comment on above: Performed By: #### U AMIC, URTPRT #### [address] [address] Hooker Inspector: Gideon Bullock MD RBC (Bld) [#/Vol] 4.12 10*6/uL Normal 3.95-5.11 [facility] Comment on above: Performed By: #### U AMIC, URTPRT #### [address] [address] Hooker Inspector: Gideon Bullock MD WBC (Bld) [#/Vol] 7.9 10*3/uL Normal 3.5-11.3 [facility] Comment on above: Performed By: #### U AMIC, URTPRT #### [address] [address] Hooker Inspector: Gideon Bullock MD Comp Metabolic Profon 2023 Albumin [Mass/Vol] 3.7 g/dL Normal 3.5-5.2 [facility] Comment on above: Performed By: #### U AMIC, URTPRT #### [address] [address] Hooker Inspector: Gideon Bullock MD Albumin/Glob Ratio 1.0 Normal 1.0-2.5 [facility] Comment on above: Performed By: #### U AMIC, URTPRT #### [address] [address] Hooker Inspector: Gideon Bullock MD Alkaline Phos 105 U/L High 35-104 [facility] Comment on above: Performed By: #### U AMIC, URTPRT #### [facility] WO Funding [address] [place] [address] Hooker Inspector: Gideon Bullock MD ALT [Catalytic activity/Vol] 18 U/L Normal 10-35 [facility] Comment on above: Performed By: #### U AMIC, URTPRT #### [facility] WO Funding [address] [place] [address] Hooker Inspector: Gideon Bullock MD Anion gap [Moles/Vol] 10 mmol/L Normal 9-16 [facility] Comment on above: Performed By: #### U AMIC, URTPRT #### [address] [address] Hooker Inspector: Gideon Bullock MD AST [Catalytic activity/Vol] 16 U/L Normal 10-35 [facility] Comment on above: Performed By: #### U AMIC, URTPRT #### [facility] WO Funding [address] [place] [address] Hooker Inspector: Gideon Bullock MD Bilirubin [Mass/Vol] 0.2 mg/dL Normal 0.00-1.20 [facility] Comment on above: Performed By: #### U AMIC, URTPRT #### [facility] WO Funding [address] [place] [address] Hooker Inspector: Gideon Bullock MD Calcium [Mass/Vol] 9.0 mg/dL Normal 8.6-10.4 [facility] Comment on above: Performed By: #### U AMIC, URTPRT #### [facility] WO Funding [address] [place] [address] Hooker Inspector: Gideon Bullock MD Chloride [Moles/Vol] 106 mmol/L Normal 98-107 [facility] Comment on above: Performed By: #### U AMIC, URTPRT #### [facility] WO Funding [address] [place] [address] Hooker Inspector: Gideon Bullock MD CO2 [Moles/Vol] 21 mmol/L Normal 20-31 [facility] Comment on above: Performed By: #### U AMIC, URTPRT #### [facility] [address] [place] [address] Hooker Inspector: Gideon Bullock MD Creatinine [Mass/Vol] 0.4 mg/dL Low 0.50-0.90 [facility] Comment on above: Performed By: #### U AMIC, URTPRT #### [address] [address] Hooker Inspector: Gideon Bullock MD GFR/1.73 sq M.predicted among non-blacks MDRD (S/P/Bld) [Vol rate/Area] mL/min/{1.73_m2} Normal >60 [facility] Comment on above: Result Comment: These [...] #### U AMIC, URTPRT #### [facility] [facility] WO Funding [address] [place] [address] Hooker Inspector: Gideon Bullock MD Glucose [Mass/Vol] 74 mg/dL Normal 74-99 [facility] Comment on above: Performed By: #### U AMIC, URTPRT #### [facility] WO Funding [address] [place] [address] Hooker Inspector: Gideon Bullock MD Potassium [Moles/Vol] 3.9 mmol/L Normal 3.7-5.3 [facility] Comment on above: Performed By: #### U AMIC, URTPRT #### [facility] WO Funding [address] [place] [address] Hooker Inspector: Gideon Bullock MD Protein [Mass/Vol] 6.9 g/dL Normal 6.6-8.7 [facility] Comment on above: Performed By: #### U AMIC, URTPRT #### [facility] WO Funding [address] [place] [address] Hooker Inspector: Gideon Bullock MD Sodium [Moles/Vol] 137 mmol/L Normal 136-145 [facility] Comment on above: Performed By: #### U AMIC, URTPRT #### [address] [address] Hooker Inspector: Gideon Bullock MD Urea nitrogen [Mass/Vol] 9 mg/dL Normal 6-20 [facility] Comment on above: Performed By: #### U AMIC, URTPRT #### [address] [address] Hooker Inspector: Gideon Bullock MD Protein,Tot,[facility] [place] [facility] 2023 Creatinine [Mass/Vol] 123.0 mg/dL Normal 28.0-217.0 [facility] Comment on above: Performed By: #### U AMIC, URTPRT #### [address] [address] Hooker Inspector: Gideon Bullock MD Tot Prot. Conc. 14 mg/dL Normal [facility] Comment on above: Result Comment: No n ormal range established. Performed By: #### U AMIC, URTPRT #### [address] [address] Hooker Inspector: Gideon Bullock MD TP/Cre Ratio 0.[address] [facility] Comment on above: Performed By: #### U AMIC, URTPRT #### [address] [address] Hooker Inspector: Gideon Bullock MD Urinalysis w/ Microon 2023 Bacteria None Normal NONE [facility] Comment on above: Performed By: #### U AMIC, URTPRT #### [address] [address] Hooker Inspector: Gideon Bullock MD Bilirubin, SemiQt,Ur Negative Normal NEG [facility] Comment on above: Performed By: #### U AMIC, URTPRT #### [address] [address] Hooker Inspector: Gideon Bullock MD Blood, Urine MODERATE Abnormal NEG [facility] Comment on above: Performed By: #### U AMIC, URTPRT #### [address] [address] Hooker Inspector: Gideon Bullock MD Casts 0 TO 2 HYALINE Normal 0-8 [facility] Comment on above: Result Comment: Refe rence range defined for non-centrifuged specimen. Performed By: #### U AMIC, URTPRT #### [address] [address] Hooker Inspector: Gideon Bullock MD Clarity (U) Clear Normal CLEAR [facility] Comment on above: Performed By: #### U AMIC, URTPRT #### [address] [address] Hooker Inspector: Gideon Bullock MD Color (U) Yellow Normal YEL [facility] Comment on above: Performed By: #### U AMIC, URTPRT #### [address] [address] Hooker Inspector: Gideon Bullock MD Epithelial cells LM Ql (Urine sed) 5 TO 10 Normal 0-5 [facility] Comment on above: Performed By: #### U AMIC, URTPRT #### [address] [address] Hooker Inspector: Gideon Bullock MD Glucose Ql (U) Negative Normal NEG [facility] Comment on above: Performed By: #### U AMIC, URTPRT #### [address] [address] Hooker Inspector: Gideon Bullock MD Ketones Ql (U) Negative Normal NEG [facility] Comment on above: Performed By: #### U AMIC, URTPRT #### [facility] WO Funding [address] [place] [address] Hooker Inspector: Gideon Bullock MD Leukocyte esterase Test strip Ql (U) TRACE Abnormal NEG [facility] Comment on above: Performed By: #### U AMIC, URTPRT #### [facility] WO Funding [address] [place] [address] Hooker Inspector: Gideon Bullock MD Nitrite,Ur Negative Normal NEG [facility] Comment on above: Performed By: #### U AMIC, URTPRT #### [address] [address] Hooker Inspector: Gideon Bullock MD PH,Ur 6.0 Normal 5.0-8.0 [facility] Comment on above: Performed By: #### U AMIC, URTPRT #### [facility] WO Funding [address] [place] [address] Hooker Inspector: Gideon Bullock MD Protein Ql (U) Negative Normal NEG [facility] Comment on above: Performed By: #### U AMIC, URTPRT #### [facility] WO Funding [address] [place] [address] Hooker Inspector: Gideon Bullock MD Spec. [place],Ur 1.021 Normal 1.005-1.030 [facility] Comment on above: Performed By: #### U AMIC, URTPRT #### [facility] WO Funding [address] [place] [address] Hooker Inspector: Gideon Bullock MD Urine RBC's 20 TO 50 Normal 0-4 [facility] Comment on above: Result Comment: Refe rence range defined for non-centrifuged specimen. Performed By: #### U AMIC, URTPRT #### [address] [address] Hooker Inspector: Gideon Bullock MD Urine WBC's 0 TO 2 Normal 0-5 [facility] Comment on above: Performed By: #### U AMIC, URTPRT #### [address] [address] Hooker Inspector: Gideon Bullock MD Urobilinogen,Ur Normal Normal 0.0-1.0 [facility] Comment on above: Performed By: #### U AMIC, URTPRT #### [address] [address] Hooker Inspector: Gideon Bullock MD Vaginitis DNA Probeon 2023 Litzy Negative Normal NEG [facility] Comment on above: Result Comment: for Litzy sp. Method of testing is a DNA probe intended for detection and identification of Litzy species, Gardnerella vaginalis, and Trichomonas vaginalis nucleic acid in vaginal fluid specimens from patients with symptoms of vaginitis/vaginosis. Performed By: #### U AMIC, URTPRT #### [address] [address] Hooker Inspector: Gideon Bullock MD Gardnerella Positive Abnormal NEG [facility] Comment on above: Result Comment: for Gardnerella vaginalis Performed By: #### U AMIC, URTPRT #### [address] [address] Hooker Inspector: Gideon Bullock MD Trichomonas Negative Normal NEG [facility] Comment on above: Result Comment: for Trichomonas Vaginalis Performed By: #### U AMIC, URTPRT #### [facility] WO Funding [address] [place] [address] Hooker Inspector: Gideon Bullock MD Source .VAGINAL SWAB Normal [facility] Comment on above: Performed By: #### U AMIC, URTPRT #### [address] [address] Hooker Inspector: Gideon Bullock MD Thyroid Stim. Horm.on 2023 Thyroid Stim. Horm. 1.48 uIU/mL Normal 0.27-4.20 [facility] Comment on above: Performed By: #### U AMIC, URTPRT #### [address] [address] Hooker Inspector: Gideon Bullock MD Thyroxine, Freeon 12-06-2023 Thyroxine, Free 0.9 ng/dL Low 0.92-1.68 [facility] Comment on above: Performed By: #### U AMIC, URTPRT #### [address] [address] Hooker Inspector: Gideon Bullock MD Thyroid Stim. Horm.on 2023 Thyroid Stim. Horm. 1.66 uIU/mL Normal 0.27-4.20 [facility] Comment on above: Performed By: #### P ROCAC, AT3A, PROSAC, HOCYS, GLYHGB, TSH, LUPPRO, FT4 #### [address] [address] Hooker Inspector: Gideon Bullock MD #### AAFPM #### [address] [address] Hooker Inspector: Gideon Bullock MD [facility] [address] [place] [address] Hooker Inspector: Fantasma Wood MD #### AF5MUT, AMTHFR, APTMUT #### [facility] [address] [place] [address] Hooker Inspector: Fantasma Wood MD Thyroxine, Freeon 11-08-2023 Thyroxine, Free 0.9 ng/dL Low 0.92-1.68 [facility] Comment on above: Performed By: #### P ROCAC, AT3A, PROSAC, HOCYS, GLYHGB, TSH, LUPPRO, FT4 #### [facility] [address] [place] [address] Hooker Inspector: Gideon Bullock MD #### AAFPM #### [facility] [address] [place] [address] Hooker Inspector: Gideon Bullock MD [facility] [address] [place] [address] Hooker Inspector: Fantasma Wood MD #### AF5MUT, AMTHFR, APTMUT #### [facility] [address] [place], [place] [id number] Hooker Inspector: Fantasma Wood MD PT Mutation 43784er 10-13-19 24 PT [id number] VARIANT Negative Normal [facility] Comment on above: Result Comment: (NOT E) Indication for testing: Assess genetic risk for thrombosis. NEGATIVE: The Factor II, prothrombin [id number] mutation, was not detected. Other causes of [...] Dsouza, Ph.D. 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 PATHOGENIC VARIANT TESTED: F2 c.*97G>A (G37941Q). CLINICAL SENSITIVITY FOR VENOUS THROMBOSIS: Approximately 10 percent. METHODOLOGY: Polymerase chain reaction and fluorescence monitoring. ANALYTICAL SENSITIVITY AND SPECIFICITY: 99 percent. LIMITATIONS: Diagnostic errors can occur due to rare sequence variations. F2 gene variants, other than c.*97G>A (Y17140J), will not be detected. This test was developed and its performance characteristics determined by [facility]. It has not been cleared or approved by the [place] Food and Drug Administration. This test was performed in a CLIA certified laboratory and is intended for clinical purposes. Counseling and informed consent are recommended for genetic testing. Consent forms are available online. Performed By: [facility] [address] [place] [address] Utilization Review Coordinator: Andrew Duran MD, PhD CLIA Number: [id number] Performed By: #### U [employer], URTPRT #### [place] [id number] Hooker Inspector: Gideon Bullock MD PT PCR SPECIMEN Whole Blood Normal [facility] Comment on above: Performed By: #### U AMIC, URTPRT #### [facility] WO Funding [address] [place] [address] [phone] Hooker Inspector: Gideon Bullock MD Factor V Mutationon 10-12-19 24 F 5 SPECIMEN Whole Blood Normal [facility] Comment on above: Performed By: #### U AMIC, URTPRT #### [facility] WO Funding [address] [place] [address] [phone] Hooker Inspector: Gideon Bullock MD FACTOR 5 MUTATION Negative Normal [facility] Comment on above: Result Comment: (NOT E) Indication for testing: Assess genetic risk for thrombosis. NEGATIVE: The factor V Leiden variant, c.1601G>A; p.Aku434Inf, was not detected. This does not exclude [...] function in the F5 gene variant c.1601G>A (p.Bji064Hgk). Legacy nomenclature: R506Q (1691G>A) CLINICAL SENSITIVITY: 20-50 percent of individuals with an isolated VTE have the FVL variant. METHODOLOGY: Polymerase chain reaction and fluorescence monitoring. ANALYTICAL SENSITIVITY AND SPECIFICITY: 99 percent. LIMITATIONS: Diagnostic errors can occur due to rare sequence variations. F5 gene mutations, other than p.Vec657Cdm, will not be detected. This test was developed and its performance characteristics determined by [facility]. It has not been cleared or approved by the [place] Food and Drug Administration. This test was performed in a CLIA certified laboratory and is intended for clinical purposes. Counseling and informed consent are recommended for genetic testing. Consent forms are available online. Performed By: [facility] [address] [place] [address] Utilization Review Coordinator: Andrew Duran MD, PhD CLIA Number: [id number] Performed By: #### U AMIC, URTPRT #### [facility] [address] [place] [address] Hooker Inspector: Gdieon Bullock MD MTHFR Gene Mutationon 2023 MTHFR 1286 A>C Mut Heterozygous Normal [facility] Comment on above: Performed By: #### U AMIC, URTPRT #### [facility] [address] [place] [address] Hooker Inspector: Gideon Bullock MD MTHFR 655C>T Mut Negative Normal [facility] Comment on above: Performed By: #### U AMIC, URTPRT #### [facility] [address] [place] [address] Hooker Inspector: Gideon Bullock MD MTHFR Interpretation See Note Normal [facility] Comment on above: Result Comment: (NOT E) Indication for testing: Determine genetic contribution to hyperhomocysteinemia. 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 Variants Tested: c.665C>T(p.Zgk909Sjv) and c.1286A>C(p.Bks897Com). (legacy names C677T and F3691X, respectively). Clinical Sensitivity: Undefined; hyperhomocysteinemia is caused [...] developed and its performance characteristics determined by [facility]. It has not been cleared or approved by the [place] Food and Drug Administration. This test was performed in a CLIA certified laboratory and is intended for clinical purposes. Counseling and informed consent are recommended for genetic testing. Consent forms are available online. Performed By: [facility] [address] [place] [address] Utilization Review Coordinator: Andrew Duran MD, PhD CLIA Number: [id number] Performed By: #### U AMIC, URTPRT #### [facility] [place], [place] [phone] Hooker Inspector: Gideon Bullock MD MTHFR SPECIMEN Whole Blood Normal [facility] Comment on above: Performed By: #### U AMIC, URTPRT #### [facility] [place], [place] [phone] Hooker Inspector: Gideon Bullock MD AFP, Maternalon 10-11-2023 Determined by Ultrasound Normal [facility] Comment on above: Performed By: #### U AMIC, URTPRT #### [facility] [place], [place] [phone] Hooker Inspector: Gideon Bullock MD Due Date SEE NOTE Normal [facility] Comment on above: Result Comment: Resu lts for Estimated Due Date: 02 26 24 Performed By: #### U AMIC, URTPRT #### [address] [address] Hooker Inspector: Gideon Bullock MD Family History No Normal [facility] Comment on above: Performed By: #### U AMIC, URTPRT #### [facility] WO Funding [address] [place] [address] Hooker Inspector: Gideon Bullock MD Gestat Age (exact) 20 wks, 0 days Normal [facility] Comment on above: Performed By: #### U AMIC, URTPRT #### [facility] WO Funding [address] [place] [address] Hooker Inspector: Gideon Bullock MD Ins Req Matern Diab Yes Normal [facility] Comment on above: Performed By: #### U AMIC, URTPRT #### [facility] WO Funding [address] [place] [address] Hooker Inspector: Gideon Bullock MD Interpretation Screen Neg Normal [facility] Comment on above: Result Comment: (NOT [...] developed and its performance characteristics determined by [facility]. It has not been cleared or approved by the [place] Food and Drug Administration. This test was performed in a CLIA certified laboratory and is intended for clinical purposes. Performed By: #### U AMIC, URTPRT #### [address] [address] Hooker Inspector: Gideon Bullock MD [age] [facility] Comment on above: Performed By: #### U AMIC, URTPRT #### [facility] WO Funding [address] [place] [address] Hooker Inspector: Gideon Bullock MD Maternal Race Nonblack [facility] Comment on above: Performed By: #### U AMIC, URTPRT #### [facility] WO Funding [address] [place] [address] Hooker Inspector: Gideon Bullock MD Maternal Weight 298.0 lbs. [facility] Comment on above: Performed By: #### U AMIC, URTPRT #### [facility] WO Funding [address] [place] [address] Hooker Inspector: Gideon Bullock MD MoM for AFP 1.29 [facility] Comment on above: Performed By: #### U AMIC, URTPRT #### [facility] WO Funding [address] [place] [address] Hooker Inspector: Gideon Bullock MD Number of Fetuses Rodriguez [facility] Comment on above: Performed By: #### U AMIC, URTPRT #### [facility] WO Funding [address] [place] [address] Hooker Inspector: Gideon Bullock MD Patient's AFP 39 ng/mL [facility] Comment on above: Performed By: #### U AMIC, URTPRT #### [facility] [address] [place] [address] Hooker Inspector: Gideon Bullock MD Smoking No [facility] Comment on above: Performed By: #### U AMIC, URTPRT #### [facility] WO Funding [address] [place] [address] Hooker Inspector: Gideon Bullock MD Specimen See Note [facility] Comment on above: Result Comment: (NOT E) Initial sample Performed By: [facility] [address] [place] [address] Utilization Review Coordinator: Andrew Duran MD, PhD CLIA Number: [id number] Performed By: #### U AMIC, URTPRT #### [facility] [address] [place] [address] Hooker Inspector: Gideon Bullock MD AFP, Maternalon 10-10-2023 Current Smoking NO [facility] Comment on above: Performed By: #### U AMIC, URTPRT #### [facility] [address] [place] [address] Hooker Inspector: Gideon Bullock MD Dating [facility] Comment on above: Performed By: #### U AMIC, URTPRT #### [facility] [address] [place] [address] Hooker Inspector: Gideon Bullock MD Diabetic YES [facility] Comment on above: Performed By: #### U AMIC, URTPRT #### [facility] [address] [place] [address] Hooker Inspector: Gideon Bullock MD Donor Egg NO [facility] Comment on above: Performed By: #### U AMIC, URTPRT #### [facility] [address] [place] [address] Hooker Inspector: Gideon Bullock MD Estimated Due Date [facility] Comment on above: Performed By: #### U AMIC, URTPRT #### [facility] [address] [place] [address] Hooker Inspector: Gideon Bullock MD Family History NONE [facility] Comment on above: Performed By: #### U AMIC, URTPRT #### [facility] [address] [place] [address] Hooker Inspector: Gideon Bullock MD In Vitro Fertalizat NO [facility] Comment on above: Performed By: #### U AMIC, URTPRT #### [facility] [address] [place] [address] Hooker Inspector: Gideon Bullock MD LMP date [id number] [facility] Comment on above: Performed By: #### U AMIC, URTPRT #### [facility] [address] [place] [address] Hooker Inspector: Gideon Bullock MD Maternal date [facility] Comment on above: Performed By: #### U AMIC, URTPRT #### [facility] [address] [place] [address] Hooker Inspector: Gideon Bullock MD Maternal Weight 298 [facility] Comment on above: Performed By: #### U AMIC, URTPRT #### [facility] [address] [place] [address] Hooker Inspector: Gideon Bullock MD Monochorionic Twins NO [facility] Comment on above: Performed By: #### U AMIC, URTPRT #### [facility] [address] [place] [address] Hooker Inspector: Gideon Bullock MD Patient Weight Units [facility] Comment on above: Performed By: #### U AMIC, URTPRT #### [facility] [address] [place] [address] Hooker Inspector: Gideon Bullock MD Race (Maternal) NON BLACK [facility] Comment on above: Performed By: #### U AMIC, URTPRT #### [facility] [address] [place] [address] Hooker Inspector: Gideon Bullock MD Repeat Specimen NO [facility] Comment on above: Performed By: #### U AMIC, URTPRT #### [address] [address] Hooker Inspector: Gideon Bullock MD Valproic/Carbamazep NONE Normal [facility] Comment on above: Performed By: #### U AMIC, URTPRT #### [address] [address] Hooker Inspector: Gideon Bullock MD Antithrombin III Kasia 10-09 Antithrombin III Act 110 % Normal 83-122 [facility] Comment on above: Result Comment: Patients receiving Hirudin may have a falsely decreased Antitrombin III Activity. Performed By: #### P ROCAC, AT3A, PROSAC, HOCYS, GLYHGB, TSH, LUPPRO, FT4 #### [address] [address] Hooker Inspector: Gideon Bullock MD #### AAFPM #### [address] [address] Hooker Inspector: Gideon Bullock MD [address] [phone] Hooker Inspector: Fantasma Wood MD #### AF5MUT, AMTHFR, APTMUT #### [address] [phone] Hooker Inspector: Fantasma Wood MD Lupus Anticoagulanton 5 Anticardiolipin IgA 1.8 APL Normal 0.0-14.0 [facility] Comment on above: Result Comment: Reference Range: <14.0 Negative 14.0-20.0 Equivocal >20.0 Positive When results are Equivocal, it is recommended to retest after 4-6 weeks. Performed By: #### P ROCAC, AT3A, PROSAC, HOCYS, GLYHGB, TSH, LUPPRO, FT4 #### [address] [address] Hooker Inspector: Gideon Bullock MD #### AAFPM #### [address] [address] Hooker Inspector: Gideon Bullock MD [address] [phone] Hooker Inspector: Fantasma Wood MD #### AF5MUT, AMTHFR, APTMUT #### [address] [phone] Hooker Inspector: Fantasma Wood MD Anticardiolipin IgG <0.5 Normal 0.0-10.0 [facility] Comment on above: Result Comment: Reference Range: <10.0 Negative 10.0-40.0 Equivocal >40.0 Positive Performed By: #### P ROCAC, AT3A, PROSAC, HOCYS, GLYHGB, TSH, LUPPRO, FT4 #### [address] [address] Hooker Inspector: Gideno Bullock MD #### AAFPM #### [address] [address] Hooker Inspector: Gideon Bullock MD [address] [phone] Hooker Inspector: Fantasma Wood MD #### AF5MUT, AMTHFR, APTMUT #### [address] [phone] Hooker Inspector: Fantasma Wood MD Anticardiolipin IgM <0.8 Normal 0.0-10.0 [facility] Comment on above: Result Comment: Reference Range: <10.0 Negative 10.0-40.0 Equivocal >40.0 Positive Performed By: #### P ROCAC, AT3A, PROSAC, HOCYS, GLYHGB, TSH, LUPPRO, FT4 #### [address] [address] Hooker Inspector: Gideon Bullock MD #### AAFPM #### [address] [address] Hooker Inspector: Gideon Bullock MD [facility] [address] [place] [address] Hooker Inspector: Fantasma Wood MD #### AF5MUT, AMTHFR, APTMUT #### [facility] [address] [place] [address] Hooker Inspector: Fantasma Wood MD Dilute Heladio Viper Negative Normal [facility] Comment on above: Performed By: #### P ROCAC, AT3A, PROSAC, HOCYS, GLYHGB, TSH, LUPPRO, FT4 #### [address] [address] Hooker Inspector: Gideon Bullock MD #### AAFPM #### [address] [address] Hooker Inspector: Gideon Bullock MD [facility] [address] [place] [address] Hooker Inspector: Fantasma Wood MD #### AF5MUT, AMTHFR, APTMUT #### [facility] [address] [place] [address] Hooker Inspector: Fantasma Wood MD Protein C Activityon 024 Protein C Activity 136 % Normal >80 [facility] Comment on above: Result Comment: Patients [...] GLYHGB, TSH, LUPPRO, FT4 #### [facility] [address] [place] [address] [phone] Hooker Inspector: Gideon Bullock MD #### AAFPM #### [address] [address] Hooker Inspector: Gideon Bullock MD [place] [facility] [address] [place] [address] Hooker Inspector: Fantasma Wood MD #### AF5MUT, AMTHFR, APTMUT #### [facility] [address] [place] [address] Hooker Inspector: Fantasma Wood MD Protein S Activityon 024 Protein S Activity 68 % Normal 59-130 [facility] Comment on above: Result Comment: Patients [...] HOCYS, GLYHGB, TSH, LUPPRO, FT4 #### [address] [address] Hooker Inspector: Gideon Bullock MD #### AAFPM #### [address] [address] Hooker Inspector: Gideon Bullock MD [facility] [address] [place], [place] [id number] Hooker Inspector: Fantasma Wood MD #### AF5MUT, AMTHFR, APTMUT #### [facility] [address] [place] [address] Hooker Inspector: Fantasma Wood MD Hemoglobin A1Con 10-09-2023 Glucose [Mass/Vol] 103 mg/dL Normal [facility] Comment on above: Result Comment: The ADA and AACC recommend providing the estimated average glucose result to permit better patient understanding of their HBA1c result. Performed By: #### P ROCAC, AT3A, PROSAC, HOCYS, GLYHGB, TSH, LUPPRO, FT4 #### [facility] [address] [place] [address] Hooker Inspector: Gideon Bullock MD #### AAFPM #### [address] [address] Hooker Inspector: Gideon Bullock MD [facility] [address] [place] [address] Hooker Inspector: Fantasma Wood MD #### AF5MUT, AMTHFR, APTMUT #### [facility] [address] [place] [address] Hooker Inspector: Fantasma Wood MD HbA1c (Bld) [Mass fraction] 5.2 % Normal 4.0-6.0 [facility] Comment on above: Performed By: #### P ROCAC, AT3A, PROSAC, HOCYS, GLYHGB, TSH, LUPPRO, FT4 #### [address] [address] Hooker Inspector: Gideon Bullock MD #### AAFPM #### [address] [address] Hooker Inspector: Gideon Bullock MD [facility] [address] [place] [address] Hooker Inspector: Fantasma Wood MD #### AF5MUT, AMTHFR, APTMUT #### [facility] [address] [place] [address] Hooker Inspector: Fantasma Wood MD Homocysteineon 10-09-2023 Homocysteine 4.3 umol/L Normal 0.0-15.0 [facility] Comment on above: Performed By: #### P ROCAC, AT3A, PROSAC, HOCYS, GLYHGB, TSH, LUPPRO, FT4 #### [address] [address] Hooker Inspector: Gideon Bullock MD #### AAFPM #### [address] [address] Hooker Inspector: Gideon Bullock MD [address] [phone] Hooker Inspector: Fantasma Wood MD #### AF5MUT, AMTHFR, APTMUT #### [address] [phone] Hooker Inspector: Fantasma Wood MD Lupus Anticoagulanton 2023 aPTT Coag (Bld) [Time] 27.5 s Normal 23.0-36.5 [facility] Comment on above: Result Comment: IV Heparin Therapy Range: 66.0-92.0 sec Performed By: #### P ROCAC, AT3A, PROSAC, HOCYS, GLYHGB, TSH, LUPPRO, FT4 #### [address] [address] Hooker Inspector: Gideon Bullock MD #### AAFPM #### [address] [address] Hooker Inspector: Gideon Bullock MD [address] [phone] Hooker Inspector: Fantasma Wood MD #### AF5MUT, AMTHFR, APTMUT #### [facility] [address] [place], [place] [id number] Hooker Inspector: Fantasma Wood MD INR Coag (PPP) [Relative time] 1.0 {INR} Normal [facility] Comment on above: Result Comment: Therapeutic Range: Moderate Anticoagulant Intensity: INR = 2.0-3.0 High Anticoagulant Intensity: INR = 2.5-3.5 Performed By: #### P ROCAC, AT3A, PROSAC, HOCYS, GLYHGB, TSH, LUPPRO, FT4 #### [address] [address] Hooker Inspector: Gideon Bullock MD #### AAFPM #### [address] [address] Hooker Inspector: Gideon Bullock MD [facility] [address] [place], [place] [id number] Hooker Inspector: Fantasma Wood MD #### AF5MUT, AMTHFR, APTMUT #### [facility] [address] [place] [address] Hooker Inspector: Fantasma Wood MD PT Coag (PPP) [Time] 13.1 s Normal 11.7-14.9 [facility] Comment on above: Performed By: #### P ROCAC, AT3A, PROSAC, HOCYS, GLYHGB, TSH, LUPPRO, FT4 #### [address] [address] Hooker Inspector: Gideon Bullock MD #### AAFPM #### [address] [address] Hooker Inspector: Gideon Bullock MD [facility] [address] [place], [place] [id number] Hooker Inspector: Fantasma Wood MD #### AF5MUT, AMTHFR, APTMUT #### [facility] [address] [place] [address] Hooker Inspector: Fantasma Wood MD Protein,Tot,[facility] 2023 Creatinine [Mass/Vol] 120.0 mg/dL Normal 28.0-217.0 [facility] Comment on above: Performed By: #### U AMIC, URTPRT #### [address] [address] Hooker Inspector: Gideon Bullock MD Tot Prot. Conc. 10 mg/dL Normal [facility] Comment on above: Result Comment: No n ormal range established. Performed By: #### U AMIC, URTPRT #### [address] [address] Hooker Inspector: Gideon Bullock MD TP/Cre Ratio 0.[address] [facility] Comment on above: Performed By: #### U AMIC, URTPRT #### [address] [address] Hooker Inspector: Gideon Bullock MD Thyroid Stim. Horm.on 2023 Thyroid Stim. Horm. 2.35 uIU/mL Normal 0.27-4.20 [facility] Comment on above: Performed By: #### P ROCAC, AT3A, PROSAC, HOCYS, GLYHGB, TSH, LUPPRO, FT4 #### [address] [address] Hooker Inspector: Gideon Bullock MD #### AAFPM #### [address] [address] Hooker Inspector: Gideon Bullock MD [address] [address] Hooker Inspector: Fantasma Wood MD #### AF5MUT, AMTHFR, APTMUT #### [address] [address] Hooker Inspector: Fantasma Wood MD Thyroxine, Freeon 10-09-2023 Thyroxine, Free 0.9 ng/dL Low 0.92-1.68 [facility] Comment on above: Performed By: #### P ROCAC, AT3A, PROSAC, HOCYS, GLYHGB, TSH, LUPPRO, FT4 #### [address] [address] Hooker Inspector: Gideon Bullock MD #### AAFPM #### [address] [address] Hooker Inspector: Gideon Bullock MD [facility] [address] [place] [address] Hooker Inspector: Fantasma Wood MD #### AF5MUT, AMTHFR, APTMUT #### [facility] [address] [place] [address] Hooker Inspector: Fantasma Wood MD XR FOOT RT MIN [...] Blas MD on 09/10/2023 12:57 PM Normal [facility] MR BRAIN W WO CONTon 024 [...] Rice MD on 06/14/2023 8:30 AM Normal [facility] BASIC METABOLIC PANLon 05-16 Anion gap [Moles/Vol] 10 mmol/L Normal 5-15 [facility] Comment on above: Performed By: #### B JOSE FERGUSON #### [facility] ([id number]) [address] [place] [address] Calcium [Mass/Vol] 8.9 mg/dL Normal 8.5-10.5 [facility] Comment on above: Performed By: #### B JOSE FERGUSON #### [facility] ([id number]) [address] [place] [address] Chloride [Moles/Vol] 107 mmol/L Normal 98-109 [facility] Comment on above: Performed By: #### B JOSE FERGUSON #### [facility] ([id number]) [address] [place] [address] CO2 [Moles/Vol] 18 mmol/L Low 22-32 [facility] Comment on above: Performed By: #### B JOSE FERGUSON #### [facility] ([id number]) [address] [place] [address] Creatinine [Mass/Vol] 0.58 mg/dL Normal 0.40-1.00 [facility] Comment on above: Result Comment: METH OD TRACEABLE TO IDMS STANDARD Performed By: #### B JOSE FERGUSON #### [facility] ([id number]) [address] [place] [address] eGFR (CKD-EPI) NON-RACE DEPENDENT >90 Normal >59 [facility] Comment on above: Result Comment: Reported eGFR is based on the CKD-EPI 2020 equation that does not use a race coefficient. Performed By: #### B MP, CBCA #### [facility] ([id number]) [address] [place] [address] Glucose [Mass/Vol] 109 mg/dL High 65-99 [facility] Comment on above: Performed By: #### B MP, CBCA #### [facility] ([id number]) [address] [place] [address] Potassium [Moles/Vol] 3.3 mmol/L Low 3.5-5.0 [facility] Comment on above: Performed By: #### B MP, CBCA #### [facility] ([id number]) [address] [place] [address] Sodium [Moles/Vol] 135 mmol/L Normal 134-146 [facility] Comment on above: Performed By: #### B PHYLLIS, CBCA #### [facility] ([id number]) [address] [place] [address] Urea nitrogen [Mass/Vol] 16 mg/dL Normal 5-23 [facility] Comment on above: Performed By: #### B MP, CBCA #### [facility] ([id number]) [address] [place] [address] CBC AND AUTO DIFFon -24-20 24 ABSOLUTE BASOPHIL 0.1 X10E9/L Normal 0.0-0.2 [facility] Comment on above: Performed By: #### B MP, CBCA #### [facility] ([id number]) [address] [place] [address] ABSOLUTE NEUTROPHIL 4.6 X10E9/L Normal 1.5-6.6 [facility] Comment on above: Performed By: #### B MP, CBCA #### [facility] ([id number]) [address] [place] [address] Basophils/100 WBC (Bld) 0.7 % Normal [facility] Comment on above: Performed By: #### B MP, CBCA #### [facility] ([id number]) [address] [place] [address] Eosinophils (Bld) [#/Vol] 0.3 10*3/uL Normal 0.0-0.4 [facility] Comment on above: Performed By: #### B MP, CBCA #### [facility] ([id number]) [address] [place] [address] Eosinophils/100 WBC (Bld) 4.4 % Normal [facility] Comment on above: Performed By: #### B MP, CBCA #### [facility] ([id number]) [address] [place] [address] Erythrocyte distribution width (RBC) [Ratio] 13.3 % Normal 11.5-15.0 [facility] Comment on above: Performed By: #### B MP, CBCA #### [facility] ([id number]) [address] [place] [address] Hematocrit (Bld) [Volume fraction] 40.5 % Normal 35-47 [facility] Comment on above: Performed By: #### B MP, CBCA #### [facility] ([id number]) [address] [place] [address] Hemoglobin (Bld) [Mass/Vol] 13.8 g/dL Normal 11.7-15.5 [facility] Comment on above: Performed By: #### B MP, CBCA #### [facility] ([id number]) [address] [place] [address] Lymphocytes (Bld) [#/Vol] 2.0 10*3/uL Normal 1.0-3.5 [facility] Comment on above: Performed By: #### B MP, CBCA #### [facility] ([id number]) [address] [place] [address] Lymphocytes/100 WBC (Bld) 26.3 % Normal [facility] Comment on above: Performed By: #### B MP, CBCA #### [facility] ([id number]) [address] [place] [address] MCH (RBC) [Entitic mass] 27.9 pg Normal 27-34 [facility] Comment on above: Performed By: #### B MP, CBCA #### [facility] ([id number]) [address] [place] [address] MCHC (RBC) [Mass/Vol] 34.0 g/dL Normal 32-36 [facility] Comment on above: Performed By: #### B MP, CBCA #### [facility] ([id number]) [address] [place] [address] MCV (RBC) [Entitic vol] 82 fL Normal 80-100 [facility] Comment on above: Performed By: #### B MP, CBCA #### [facility] ([id number]) [address] [place] [address] Monocytes (Bld) [#/Vol] 0.5 10*3/uL Normal 0-0.9 [facility] Comment on above: Performed By: #### B MP, CBCA #### [facility] ([id number]) [address] [place] [address] Monocytes/100 WBC (Bld) 6.9 % Normal [facility] Comment on above: Performed By: #### B MP, CBCA #### [facility] ([id number]) [address] [place] [address] Neutrophils/100 WBC (Bld) 61.7 % Normal [facility] Comment on above: Performed By: #### B MP, CBCA #### [facility] ([id number]) [address] [place] [address] Platelet mean volume (Bld) [Entitic vol] 8.4 fL Normal 7-12 [facility] Comment on above: Performed By: #### B MP, CBCA #### [facility] ([id number]) [address] [place] [address] Platelets (Bld) [#/Vol] 247 10*3/uL Normal 150-450 [facility] Comment on above: Performed By: #### B MP, CBCA #### [facility] ([id number]) [address] [place] [address] RBC COUNT 4.93 X10E12/L Normal 3.80-5.20 [facility] Comment on above: Performed By: #### B PHYLLIS, CBCA #### [facility] ([id number]) [address] [place] [address] WBC (Bld) [#/Vol] 7.5 10*3/uL Normal 4.0-11.0 [facility] Comment on above: Performed By: #### B PHYLLIS, CBCA #### [facility] ([id number]) [address] [place] [address] BRAIN WO CONTon CT BRAIN WO [...] Leon MD on 05/16/2023 10:57 AM Normal [facility] HCG ( test) Ql (U)o n 05-16-2023 Beta HCG ( test) Ql (U) Negative Normal NEG [facility] Comment on above: Performed By: #### 2 106-3 #### [facility] ([id number]) [address] [place] [address] URN MACROSCOPIC NURon 2023 BILIRUBIN TADEO Negative Normal [facility] Comment on above: Performed By: #### N UM #### [facility] ([id number]) [address] [place] [address] BLOOD/HGB TADEO Negative Normal [facility] Comment on above: Performed By: #### N UM #### [facility] ([id number]) [address] [place] [address] GLUCOSE TADEO Negative Normal [facility] Comment on above: Performed By: #### N UM #### [facility] ([id number]) [address] [place] [address] KETONES TADEO Negative Normal [facility] Comment on above: Performed By: #### N UM #### [facility] ([id number]) [address] [place] [address] LEUKOCYTE ESTERASE TADEO Negative Normal [facility] Comment on above: Performed By: #### N UM #### [facility] ([id number]) [address] [place] [address] NITRITE TADEO Negative Normal [facility] Comment on above: Performed By: #### N UM #### [facility] ([id number]) [address] [place] [address]83 PH TADEO 6.5 Normal 5.0-8.5 [facility] Comment on above: Performed By: #### N UM #### [facility] ([id number]) [address] [place] [address] PROTEIN TADEO Negative Normal NEG [facility] Comment on above: Performed By: #### N UM #### [facility] ([id number]) [address] [place] [address] SPECIFIC GRAVITY TADEO 1.025 Normal 1.003-1.035 [facility] Comment on above: Performed By: #### N UM #### [facility] ([id number]) [address] [place] [address]659 UROBILINOGEN TADEO 0.2 eu/dL Normal <1.1 [facility] Comment on above: Performed By: #### N UM #### [facility] ([id number]) [address] [place] [address] COVID + FLU Quick Testingon 02-05-2023 SARS-CoV-2 (COVID-19) RNA SARANYA+probe Ql (Unsp spec) Negative [facility] Other COVID + FLU Quick Testing Negative [facility] Other Aerobic Cultureon 12-22-2022 Aerobic Culture Comment tube 2 No Growth 2 Days Comment tube 2 No Anaerobes Isolated 3 Days Comment tube 2 Gram Stain Result No White Blood Cells Seen No Bacteria Seen PERFORMED BY: [place] [address] PATHOLOGIST BREAD MOLDER ALLEN COATES M.D. Normal [facility] Comment on above: Performed By: #### C BC, PT, PTT #### [place] [id number] [place] CSF PCR Panelon 12-22-2022 CSF PCR [...] Varicella zoster virus Not detected PERFORMED BY: [place] [address] PATHOLOGIST BREAD MOLDER ALLEN COATES M.D. [facility] Comment on above: Performed By: #### C SF PCR PANEL #### [address] Cell Count Differential,CSFo n 12-22-2022 Appearance, CSF Clear Normal Clear [facility] Comment on above: Order Comment: Comme nt tube 1 Performed By: #### C SFCCDIFF #2, CSF TP #2, CSF GLU #2, CSF GLU, CSF TP, GS, AERC, CSFCCDIFF #### [address] Order Comment: Comme nt tube 4 Color, CSF Colorless Normal Colorless [facility] Comment on above: Order Comment: Comme nt tube 1 Performed By: #### C SFCCDIFF #2, CSF TP #2, CSF GLU #2, CSF GLU, CSF TP, GS, AERC, CSFCCDIFF #### [address] Order Comment: Comme nt tube 4 CSF Supernatant Color Colorless Normal Colorless [facility] Comment on above: Order Comment: Comme nt tube 1 Performed By: #### C SFCCDIFF #2, CSF TP #2, CSF GLU #2, CSF GLU, CSF TP, GS, AERC, CSFCCDIFF #### [address] Order Comment: Comme nt tube 4 CSF Volume, Total 29.4 mL [facility] Comment on above: Order Comment: Comme nt tube 1 Performed By: #### C SFCCDIFF #2, CSF TP #2, CSF GLU #2, CSF GLU, CSF TP, GS, AERC, CSFCCDIFF #### [facility] [address] Order Comment: Comme nt tube 4 Lymphocytes, CSF 4 Normal [facility] Comment on above: Order Comment: Comme nt tube 1 Result Comment: The reference interval and other method performance specifications have not been established for this body fluid. The test result must be integrated into the clinical context for interpretation. Performed By: #### C SFCCDIFF #2, CSF TP #2, CSF GLU #2, CSF GLU, CSF TP, GS, AERC, CSFCCDIFF #### [facility] [address] [place] [address] RBC, CSF 2 /uL Normal [facility] Comment on above: Order Comment: Comme nt tube 1 Result Comment: The reference interval and other method performance specifications have not been established for this body fluid. The test result must be integrated into the clinical context for interpretation. Performed By: #### C SFCCDIFF #2, CSF TP #2, CSF GLU #2, CSF GLU, CSF TP, GS, AERC, CSFCCDIFF #### [facility] [address] [place] [address] TNC, CSF 1 /uL Normal 0-5 [facility] Comment on above: Order Comment: Comme nt tube 1 Performed By: #### C SFCCDIFF #2, CSF TP #2, CSF GLU #2, CSF GLU, CSF TP, GS, AERC, CSFCCDIFF #### [facility] [address] [place] [address] Order Comment: Comme nt tube 4 Tube Number Tested, CSF Tube Number: 1 Normal [facility] Comment on above: Order Comment: Comme nt tube 1 Result Comment: PERF ORMED BY: [place] [address] PATHOLOGIST BREAD MOLDER ALLEN COATES M.D. Performed By: #### C SFCCDIFF #2, CSF TP #2, CSF GLU #2, CSF GLU, CSF TP, GS, AERC, CSFCCDIFF #### [facility] [address] Cell Count Differential,CSF #2on 12-22-2022 Lymphocytes, CSF 7 Normal [facility] Comment on above: Order Comment: Comme nt tube 4 Result Comment: The reference interval and other method performance specifications have not been established for this body fluid. The test result must be integrated into the clinical context for interpretation. Performed By: #### C SFCCDIFF #2, CSF TP #2, CSF GLU #2, CSF GLU, CSF TP, GS, AERC, CSFCCDIFF #### [facility] [address] [place] [address] RBC, CSF 1 /uL Normal [facility] Comment on above: Order Comment: Comme nt tube 4 Result Comment: The reference interval and other method performance specifications have not been established for this body fluid. The test result must be integrated into the clinical context for interpretation. Performed By: #### C SFCCDIFF #2, CSF TP #2, CSF GLU #2, CSF GLU, CSF TP, GS, AERC, CSFCCDIFF #### [address] Tube Number Tested, CSF Tube Number: 4 Normal [facility] Comment on above: Order Comment: Comme nt tube 4 Result Comment: PERF ORMED BY: [place] [id number] PATHOLOGIST BREAD MOLDER ALLEN COATES M.D. Performed By: #### C SFCCDIFF #2, CSF TP #2, CSF GLU #2, CSF GLU, CSF TP, GS, AERC, CSFCCDIFF #### [address] Cerebrospinal fluid post-adams trifugation appearance determinationOrdered By: Razia Muller on 12-22-2022 Appearance (Spun CSF) Colorless Colorless [facility] Cerebrospinal fluid sample t ube volume measurementOrdered By: Razia Muller on 12-22-2022 Specimen volume (CSF) 29.4 mL [facility] Color CSFOrdered By: Razia longo on 12-22-2022 Color (CSF) Colorless Colorless [facility] Glucose, CSF #2on 12-22-2022 Glucose, CSF #2 71 mg/dL High 40-70 [facility] Comment on above: Order Comment: Comme nt tube 4 Performed By: #### C BC, PT, PTT #### [facility] [address] [place] [address] [place] Glucose, Spinal Fluidon Glucose, Spinal Fluid 73 mg/dL High 40-70 [facility] Comment on above: Order Comment: Comme nt tube 1 Performed By: #### C SFCCDIFF #2, CSF TP #2, CSF GLU #2, CSF GLU, CSF TP, GS, AERC, CSFCCDIFF #### [facility] [address] [place] [address] Gram Stainon 12-22-2022 Microscopic observation Gram stain Nom (Unsp spec) Comment tube 2 Gram Stain Result No White Blood Cells Seen No Bacteria Seen PERFORMED BY: [place] [address] PATHOLOGIST BREAD MOLDER ALLEN COATES M.D. [facility] Comment on above: Performed By: #### C SFCCDIFF #2, CSF TP #2, CSF GLU #2, CSF GLU, CSF TP, GS, AERC, CSFCCDIFF #### [facility] [address] [place] [address] IR guided lumbar puncture LP on 12-22-2022 IR guided lumbar puncture LP [facility] [address] [place] [address] Interventional Radiology Rpt Signed Patient: Yani Stevens MR#: [id number] : 1990 Acct:[id number] Age/Sex: 32 / F ADM Date: 12/22/22 Loc: XD Room: Type: [facility] Attending Dr: Razia EVANGELISTA Copies to: TONJA [...] Vernon Lin M.D.12/22/2022 1:07 PM Dictation Location: [place] [address] Transcribed By: PATT 12/22/22 2027 Dictated By: Vernon Lin II, MD 12/22/22 1253 Signed By: 12/22/[address] [facility] 12-22-2022 L ---- Specimen: [id number] Received: 12/22/22 Status: TERRANCE Collado Num: [id number] Spec Type: Cytology Subm Dr: TONJA Jimenez Tissues: A CSF (CSF) Procedures: Cyto Prepstain, DIFF QWIK, PAPSTN Age/ Patient Sex Location Account Attending Physician Yani Stevens 32/F XD [id number] TONJA Jimenez SPEC NUM: [id number] RECD: 12/22/22 STATUS: TERRANCE PAN NUM: [id number] TOMASA: 12/22/[address] [facility] [address]: TONJA Jimenez ENTERED: 12/22/[address] [facility] [address]: Vernon Lin II, MD SPEC TYPE: Cytology DEPT: [facility] ENTERED BY: [id number] RECV BY: [id number] ORDERED: Cyto Prepstain, DIFF QWIK, PAPSTN ORDERED: [...] [id number] Received: 12/22/22 Status: TERRANCE Collado Num: [id number] Spec Type: Cytology Subm Dr: Razia Muller, [employer]TE[employer] WORKER-C Tissues: A CSF (CSF) Procedures: Cyto Prepstain, DIFF QWIK, PAPQUITA Patient: Yani Stevens [id number] (Continued) Signed (signature on file) Dimas De Anda MD 12/26/22 0905 Normal [facility] Manual cerebrospinal fluid e rythrocytes count (number/volume)Ordered By: Razia Muller on 12-22-2022 RBC Manual cnt (CSF) [#/Vol] 1 /uL [facility] Comment on above: The reference interv al and other method performance specifications have not been established for this body fluid. The test result must be integrated into the clinical context for interpretation. No Panel InformationOrdered By: Razia Muller on 12-22-2022 CSF Appearance Clear Clear [facility] CSF Eosinophils N/A [facility] CSF Lymphocytes 7 [facility] Comment on above: The reference interv al and other method performance specifications have not been established for this body fluid. The test result must be integrated into the clinical context for interpretation. CSF Monocytes N/A [facility] CSF Neutrophils N/A [facility] CSF Tube Number Tube number: 4 [facility] Nucleated cells [#/volume] i n Cerebral spinal fluid by Manual countOrdered By: Razia Muller on 12-22-2022 Nucleated cells Manual cnt (CSF) [#/Vol] 0.001 10*3/uL 0-5 [facility] Total Protein, CSF #2on 09-0 Total Protein, CSF #2 31 mg/dL Normal 15-45 [facility] Comment on above: Order Comment: Comme nt tube 4 Result Comment: PERF ORMED BY: [place] [id number] PATHOLOGIST BREAD MOLDER ALLEN COATES M.D. Performed By: #### C BC, PT, PTT #### [place] [address] [place] Total Protein, Spinal Fluido n 12-22-2022 Total Protein, Spinal Fluid 34 mg/dL Normal 15-45 [facility] Comment on above: Order Comment: Comme nt tube 1 Result Comment: PERF ORMED BY: [place] [id number] PATHOLOGIST BREAD MOLDER ALLEN COATES M.D. Performed By: #### C BC, PT, PTT #### [facility] [address] [place] [address] Activated partial thrombopla stin time (aPTT) in platelet poor plasma by coagulation aOrdered By: Razia Muller on 12-20-2022 aPTT Coag (PPP) [Time] 32.8 s 25.1-36.5 [facility] Basophils Auto (Bld) [#/Vol] Ordered By: Razia Muller on 12-20-2022 Basophils (Bld) [#/Vol] 0.0 10*3/uL 0.0-0.2 [facility] Basophils/100 WBC Auto (Bld) Ordered By: Razia Muller on 12-20-2022 Basophils/100 WBC (Bld) 0.5 % . [facility] Complete Blood Count Auto Di ffon 12-20-2022 Basophils (Bld) [#/Vol] 0.0 10*3/uL Normal 0.0-0.2 [facility] Comment on above: Result Comment: PERF ORMED BY: [place] [id number] PATHOLOGIST BREAD MOLDER ALLEN COATES M.D. Performed By: #### C BC, PT, PTT #### [facility] [address] [place] [address] [place] Basophils/100 WBC (Bld) 0.5 % Normal . [facility] Comment on above: Performed By: #### C BC, PT, PTT #### [facility] [address] [place] [address] [place] Eosinophils (Bld) [#/Vol] 0.2 10*3/uL Normal 0.0-0.45 [facility] Comment on above: Performed By: #### C BC, PT, PTT #### [facility] [address] [place] [address] [place] Eosinophils/100 WBC (Bld) 3.2 % Normal . [facility] Comment on above: Performed By: #### C BC, PT, PTT #### [facility] [address] Erythrocyte distribution width (RBC) [Ratio] 13.9 % Normal 11.9-15.3 [facility] Comment on above: Performed By: #### C BC, PT, PTT #### [facility] [address] Hematocrit (Bld) [Volume fraction] 40.9 % Normal 34.0-46.4 [facility] Comment on above: Performed By: #### C BC, PT, PTT #### [facility] [address] Hemoglobin (Bld) [Mass/Vol] 13.6 g/dL Normal 11.8-15.4 [facility] Comment on above: Performed By: #### C BC, PT, PTT #### [address] Lymphocytes (Bld) [#/Vol] 2.1 10*3/uL Normal 1.00-4.8 [facility] Comment on above: Performed By: #### C BC, PT, PTT #### [address] Lymphocytes/100 WBC (Bld) 29.1 % Normal . [facility] Comment on above: Performed By: #### C BC, PT, PTT #### [address] MCH (RBC) [Entitic mass] 27.6 pg Normal 24.7-34.3 [facility] Comment on above: Performed By: #### C BC, PT, PTT #### [address] MCV (RBC) [Entitic vol] 83.0 fL Normal 80-100 [facility] Comment on above: Performed By: #### C BC, PT, PTT #### [address] Mean Corpuscular HGB Conc 33.2 g/dL Normal 32.0-35.0 [facility] Comment on above: Performed By: #### C BC, PT, PTT #### [facility] [address] Monocytes (Bld) [#/Vol] 0.5 10*3/uL Normal 0.0-0.8 [facility] Comment on above: Performed By: #### C BC, PT, PTT #### [facility] [address] Monocytes/100 WBC (Bld) 6.3 % Normal . [facility] Comment on above: Performed By: #### C BC, PT, PTT #### [facility] [address] Neutrophils (Bld) [#/Vol] 4.4 10*3/uL Normal 1.8-7.7 [facility] Comment on above: Performed By: #### C BC, PT, PTT #### [address] Neutrophils/100 WBC (Bld) 60.9 % Normal . [facility] Comment on above: Performed By: #### C BC, PT, PTT #### [facility] [address] [place] [address] NRBC% 0.1 /100{WBC} Normal 0-0.5 [facility] Comment on above: Performed By: #### C BC, PT, PTT #### [facility] [address] [place] [address] [place] Platelet mean volume (Bld) [Entitic vol] 8.1 fL Normal 6.3-10.7 [facility] Comment on above: Performed By: #### C BC, PT, PTT #### [facility] [address] [place] [address] [place] Platelets (Bld) [#/Vol] 222 10*3/uL Normal 150-450 [facility] Comment on above: Performed By: #### C BC, PT, PTT #### [facility] [address] [place] [address] [place] RBC (Bld) [#/Vol] 4.93 10*6/uL Normal 3.60-5.00 [facility] Comment on above: Performed By: #### C BC, PT, PTT #### [facility] [address] WBC (Bld) [#/Vol] 7.3 10*3/uL Normal 3.8-11.6 [facility] Comment on above: Performed By: #### C BC, PT, PTT #### [facility] [address] Eosinophils Auto (Bld) [#/Vo l]Ordered By: Razia Muller on 12-20-2022 Eosinophils (Bld) [#/Vol] 0.2 10*3/uL 0.0-0.45 [facility] Eosinophils/100 WBC Auto (Bl d)Ordered By: Razia Muller on 12-20-2022 Eosinophils/100 WBC (Bld) 3.2 % . [facility] Erythrocyte distribution wid th Auto (RBC) [Ratio]Ordered By: Razia Muller on 12-20-2022 Erythrocyte distribution width (RBC) [Ratio] 13.9 % 11.9-15.3 [facility] Hematocrit Auto (Bld) [Volum e fraction]Ordered By: Razia Muller on 12-20-2022 Hematocrit (Bld) [Volume fraction] 40.9 % 34.0-46.4 [facility] Hemoglobin [Mass/volume] in BloodOrdered By: Razia Muller on 12-20-2022 Hemoglobin (Bld) [Mass/Vol] 13.6 g/dL 11.8-15.4 [facility] INR in Platelet poor plasma by Coagulation assayOrdered By: Razia Muller on 12-20-2022 INR Coag (PPP) [Relative time] 1.0 {INR} [facility] Comment on above: INR Therapeutic Rang [...] PT Coag (PPP) [Time] 11.1 s 9.0-12.9 [facility] Leukocytes [#/volume] correc burke for nucleated erythrocytes in Blood by Automated counOrdered By: Razia Muller on 12-20-2022 WBC corrected for nucl RBC Auto (Bld) [#/Vol] 7.3 10*3/uL 3.8-11.6 [facility] Lymphocytes Auto (Bld) [#/Vo l]Ordered By: Razia Muller on 12-20-2022 Lymphocytes (Bld) [#/Vol] 2.1 10*3/uL 1.00-4.8 [facility] Lymphocytes/100 WBC Auto (Bl d)Ordered By: Razia Muller on 12-20-2022 Lymphocytes/100 WBC (Bld) 29.1 % . [facility] MCH Auto (RBC) [Entitic mass ]Ordered By: Razia Muller on 12-20-2022 MCH (RBC) [Entitic mass] 27.6 pg 24.7-34.3 [facility] MCHC Auto (RBC) [Mass/Vol]Or dered By: Razia Muller on 12-20-2022 MCHC (RBC) [Mass/Vol] 33.2 g/dL 32.0-35.0 [facility] MCV Auto (RBC) [Entitic vol] Ordered By: Razia Muller on 12-20-2022 MCV (RBC) [Entitic vol] 83.0 fL 80-100 [facility] Monocytes Auto (Bld) [#/Vol] Ordered By: Razia Muller on 12-20-2022 Monocytes (Bld) [#/Vol] 0.5 10*3/uL 0.0-0.8 [facility] Monocytes/100 WBC Auto (Bld) Ordered By: Razia Muller on 12-20-2022 Monocytes/100 WBC (Bld) 6.3 % . [facility] Neutrophils Auto (Bld) [#/Vo l]Ordered By: Razia Muller on 12-20-2022 Neutrophils (Bld) [#/Vol] 4.4 10*3/uL 1.8-7.7 [facility] Neutrophils/100 WBC Auto (Bl d)Ordered By: Razia Muller on 12-20-2022 Neutrophils/100 WBC (Bld) 60.9 % . [facility] Nucleated erythrocytes [Pres ence] in Blood by Automated countOrdered By: Razia Muller on 12-20-2022 Nucleated RBC Auto Ql (Bld) 0.1 /100{WBC} 0-0.5 [facility] Partial Thromboplastin Timeo n 12-20-2022 aPTT Coag (Bld) [Time] 32.8 s Normal 25.1-36.5 [facility] Comment on above: Result Comment: PERF ORMED BY: [place] [id number] PATHOLOGIST BREAD MOLDER ALLEN COATES M.D. Performed By: #### C BC, PT, PTT #### [facility] [address] Platelet mean volume Auto (B ld) [Entitic vol]Ordered By: Razia Muller on 12-20-2022 Platelet mean volume (Bld) [Entitic vol] 8.1 fL 6.3-10.7 [facility] Platelets Auto (Bld) [#/Vol] Ordered By: Razia Muller on 12-20-2022 Platelets (Bld) [#/Vol] 222 10*3/uL 150-450 [facility] Prothrombin Time INRon 12-20 INR Coag (PPP) [Relative time] 1.0 {INR} Normal [facility] Comment on above: Result Comment: INR [...] By: #### C BC, PT, PTT #### [facility] [address] PT Coag (PPP) [Time] 11.1 s Normal 9.0-12.9 [facility] Comment on above: Performed By: #### C BC, PT, PTT #### [facility] [address] RBC Auto (Bld) [#/Vol]Ordere d By: Razia Renzo on 12-20-2022 RBC (Bld) [#/Vol] 4.93 10*6/uL 3.60-5.00 [facility] WBC Auto (Bld) [#/Vol]Ordere d By: Razia Renzo on 12-20-2022 WBC (Bld) [#/Vol] 7.3 10*3/uL 3.8-11.6 [facility] POC Glucose Fingerstickon Glucose [Mass/Vol] 85 mg/dL 65 - 105 mg/dL Stem[facility] C.trachomatis N.gonorrhoeae DNA, Urineon 07-21-2022 Chlamydia sp DNA SARANYA+probe Ql (U) Negative NEGATIVE [employer] Comment on above: CHLAMYDIA TRACHOMATI S DNA [...] gonorrhoeae DNA SARANYA+probe Ql (U) Negative NEGATIVE [employer] Comment on above: NEISSERIA GONORRHOEA E DNA [...] alternative nucleic acid target. Specimen Description .URINE Stemgent CBC auto differentialon 06-23 Absolute Eos # [facility] Absolute Immature Granulocyte 0.12 [facility] Absolute Lymph # 1.21 [facility] Absolute [place] # 0.69 [facility] Basophils (Bld) [#/Vol] 0.03 10*3/uL [facility] Basophils/100 WBC (Bld) 0 % 0 - 2 % [facility] Eosinophils/100 WBC (Bld) 0 % Low 1 - 4 % [facility] Hematocrit (Bld) [Volume fraction] 33.5 % Low 36.3 - 47.1 % [facility] Hemoglobin (Bld) [Mass/Vol] 10.8 g/dL Low 11.9 - 15.1 g/dL [facility] Immature granulocytes/100 WBC (Bld) 1 % High 0 [facility] Interpretation and review of laboratory results Abnormal [facility] Lymphocytes/100 WBC (Bld) 8 % Low 24 - 43 % [facility] MCH (RBC) [Entitic mass] 28.4 pg 25.2 - 33.5 pg [facility] MCHC (RBC) [Mass/Vol] 32.2 g/dL 28.4 - 34.8 g/dL [facility] MCV (RBC) [Entitic vol] 88.2 fL 82.6 - 102.9 fL [facility] Monocytes/100 WBC (Bld) 4 % 3 - 12 % [facility] NRBC Automated 0.0 0.0 per 100 WBC [facility] Platelet distribution width (Bld) [Ratio] 13.2 % 11.8 - 14.4 % [facility] Platelet mean volume (Bld) [Entitic vol] 10.5 fL 8.1 - 13.5 fL [facility] Platelets (Bld) [#/Vol] 197 10*3/uL [facility] RBC (Bld) [#/Vol] 3.80 10*6/uL Low 3.95 - 5.1 1 m/uL [facility] Segmented neutrophils/100 WBC (Bld) 87 % High 36 - 65 % [facility] Segs Absolute 13.58 High [facility] WBC (Bld) [#/Vol] 15.6 10*3/uL High [facility] Culture, Urineon 07-21-2022 Microorganism identified Cx Nom (Unsp spec) NO SIGNIFICANT GROWTH [facility] Specimen Description .CLEAN CATCH URINE [facility] POC Glucose Fingerstickon Glucose [Mass/Vol] 108 mg/dL High 65 - 105 mg/dL [facility] Interpretation and review of laboratory results Abnormal [facility] Glucose [Mass/Vol] 95 mg/dL 65 - 105 mg/dL [facility] Glucose [Mass/Vol] 123 mg/dL High 65 - 105 mg/dL [facility] Interpretation and review of laboratory results Abnormal [facility] CBCon 07-20-2022 Hematocrit (Bld) [Volume fraction] 32.8 % Low 36.3 - 47.1 % [facility] Hemoglobin (Bld) [Mass/Vol] 11.0 g/dL Low 11.9 - 15.1 g/dL [facility] Interpretation and review of laboratory results Abnormal [facility] MCH (RBC) [Entitic mass] 28.6 pg 25.2 - 33.5 pg [facility] MCHC (RBC) [Mass/Vol] 33.5 g/dL 28.4 - 34.8 g/dL [facility] MCV (RBC) [Entitic vol] 85.4 fL 82.6 - 102.9 fL [facility] NRBC Automated 0.0 0.0 per 100 WBC [facility] Platelet distribution width (Bld) [Ratio] 13.2 % 11.8 - 14.4 % [facility] Platelet mean volume (Bld) [Entitic vol] 10.8 fL 8.1 - 13.5 fL [facility] Platelets (Bld) [#/Vol] 200 10*3/uL [facility] RBC (Bld) [#/Vol] 3.84 10*6/uL Low 3.95 - 5.1 1 m/uL [facility] WBC (Bld) [#/Vol] 10.2 10*3/uL [facility] Comprehensive Metabolic Pane jaylan 07-20-2022 Albumin [Mass/Vol] 3.3 g/dL Low 3.5 - 5.2 g/dL [facility] Albumin/Globulin [Mass ratio] 1.0 {ratio} 1.0 - 2.5 [facility] ALP [Catalytic activity/Vol] 142 U/L High 35 - 104 U/L [facility] ALT [Catalytic activity/Vol] 15 U/L 5 - 33 U/L [facility] Anion gap [Moles/Vol] 12 mmol/L 9 - 17 mmol/L [facility] AST [Catalytic activity/Vol] 15 U/L NINF - 32 U/L [facility] Bilirubin [Mass/Vol] mg/dL Low 0.3 - 1 .2 mg/dL [facility] Calcium [Mass/Vol] 9.0 mg/dL 8.6 - 10. 4 mg/dL [facility] Chloride [Moles/Vol] 104 mmol/L 98 - 10 7 mmol/L [facility] CO2 [Moles/Vol] 21 mmol/L 20 - 31 mmol/L [facility] Creatinine [Mass/Vol] 0.41 mg/dL Low 0.50 - 0.90 mg/dL [facility] GFR/1.73 sq M.predicted MDRD (S/P/Bld) [Vol rate/Area] - PINF [facility] Comment on above: These results are [...] 135 mg/dL High 70 - 99 mg/dL [facility] Interpretation and review of laboratory results Abnormal [facility] Potassium [Moles/Vol] 3.8 mmol/L 3.7 - 5.3 mmol/L [facility] Protein [Mass/Vol] 6.5 g/dL 6.4 - 8.3 g/dL [facility] Sodium [Moles/Vol] 137 mmol/L 135 - 144 mmol/L [facility] Urea nitrogen [Mass/Vol] 8 mg/dL 6 - 20 mg/dL [facility] DRUG SCREEN MULTI URINEon Amphetamine Screen, Ur Negative NEGATIVE [facility] Comment on above: (Positive cutoff 1000 ng/mL) Barbiturate Screen, Ur Negative NEGATIVE [facility] Comment on above: (Positive cutoff 200 ng/mL) Benzodiazepine Screen, Urine Negative NEGATIVE [facility] Comment on above: (Positive cutoff 200 ng/mL) Cannabinoid Scrn, Ur Negative NEGATIVE [facility] Comment on above: (Positive cutoff 50 ng/mL) Cocaine Metabolite, Urine Negative NEGATIVE [facility] Comment on above: (Positive cutoff 300 ng/mL) Fentanyl, Ur Negative NEGATIVE [facility] Comment on above: (Positive cutoff 5 ng/ml) Methadone Screen, Urine Negative NEGATIVE [facility] Comment on above: (Positive cutoff 300 ng/mL) Opiates, Urine Negative NEGATIVE [facility] Comment on above: (Positive cutoff 300 ng/mL) Oxycodone Screen, Ur Negative NEGATIVE [facility] Comment on above: (Positive cutoff 100 ng/mL) Phencyclidine, Urine Negative NEGATIVE [facility] Comment on above: (Positive cutoff 25 ng/mL) Test Information Assay provides medic al screening only. The absence of expected drug(s) and/or metabolite(s) may indicate diluted or adulterated urine, limitations of testing or timing of collection. [facility] Comment on above: Testing for legal pu rposes should be confirmed by another method. To request confirmation of test result, please call the lab within 7 days of sample submission. [facility] GROUP B STREP CULTUREon 06-23 S. agalactiae Ag Ql (Unsp spec) Culture Observations: NEGATIVE FOR GROUP B STREPTOCOCCUS. Normal [facility] Comment on above: Performed By: #### [id number] #### [facility] [address] [place], [place] [address] Dr. Valeria Farris POC Glucose Fingerstickon Glucose [Mass/Vol] 116 mg/dL High 65 - 105 mg/dL [facility] Interpretation and review of laboratory results Abnormal [facility] Protein / creatinine ratio, urineon 07-20-2022 Creatinine, Ur 95.9 mg/dL 28.0 - 217.0 mg/dL [facility] Protein (U) [Mass/Vol] 17 mg/dL [facility] Comment on above: No normal range esta blished. Urine Total Protein Creatinine Ratio 0.18 0.00 - 0.20 [facility] T. pallidum Abon 07-20-2022 T. pallidum Ab IA Ql (S) Non-Reactive NONREACTIVE [facility] Comment on above: T. pallidum antibodies are not detected. There is no serological evidence of infection with T. pallidum (early primary syphilis cannot be excluded). Retest in 2-4 weeks if syphilis is clinically suspect. [facility] TYPE AND SCREENon 07-20-2022 ABO/Rh Positive [facility] Arm Band Number BE [id number] [facility] Expiration Date 07/23/2022,2357 [facility] US CHINYERE DOP LEG LTon 07-20-19 [...] by: GERARD GONZALEZ Date: 2022-07-19 15:06 Normal [facility] COVID + FLU Quick Testingon 07-18-2022 SARS-CoV-2 (COVID-19) RNA SARANYA+probe Ql (Unsp spec) Negative [employer] Other COVID + FLU Quick Testing Negative [employer] Other Quick Strepon 07-18-2022 S. pyogenes Org specific cx Ql (Throat) Negative [employer] Other Quick Strep [employer] Other US PREG BIOPHY W NON STRESSo [...] by: GERARD GONZALEZ Date: 2022-07-17 15:56 Normal [facility] Brain Natriuretic Peptideon 07-15-2022 Natriuretic peptide B (Bld) [Mass/Vol] pg/mL [facility] - 300 pg/mL [facility] [employer] [employer] Comment on above: An age-independent cutoff point of 300 pg/ml has a 98% negative predictive value excluding acute heart failure. [facility] Comprehensive metabolic pane jaylan 07-15-2022 Albumin [Mass/Vol] 3.4 g/dL Low 3.5 - 5.2 g/dL [facility] Albumin/Globulin [Mass ratio] 1.0 {ratio} 1.0 - 2.5 [facility] ALP [Catalytic activity/Vol] 138 U/L High 35 - 104 U/L [facility] ALT [Catalytic activity/Vol] 16 U/L 5 - 33 U/L [facility] Anion gap [Moles/Vol] 12 mmol/L 9 - 17 mmol/L [facility] AST [Catalytic activity/Vol] 23 U/L NINF - 32 U/L [facility] Bilirubin [Mass/Vol] mg/dL Low 0.3 - 1 .2 mg/dL [facility] Calcium [Mass/Vol] 8.9 mg/dL 8.6 - 10. 4 mg/dL [facility] Chloride [Moles/Vol] 102 mmol/L 98 - 10 7 mmol/L [facility] CO2 [Moles/Vol] 19 mmol/L Low 20 - 31 mmol/L [facility] Creatinine [Mass/Vol] 0.38 mg/dL Low 0.50 - 0.90 mg/dL [facility] GFR/1.73 sq M.predicted MDRD (S/P/Bld) [Vol rate/Area] - PINF [facility] Comment on above: These results are [...] mg/dL High 70 - 99 mg/dL [facility] Interpretation and review of laboratory results Abnormal [facility] Potassium [Moles/Vol] 3.5 mmol/L Low 3.7 - 5.3 mmol/L [facility] Protein [Mass/Vol] 6.7 g/dL 6.4 - 8.3 g/dL [facility] Sodium [Moles/Vol] 133 mmol/L Low 135 - 144 mmol/L [facility] Urea nitrogen [Mass/Vol] 9 mg/dL 6 - 20 mg/dL [facility] HIV Screenon 07-15-2022 HIV 1+2 Ab+HIV1 p24 Ag IA Ql Non-Reactive NONREACTIVE [facility] Comment on above: No laboratory eviden ce of HIV infection. If acute HIV infection is suspected, consider testing for HIV-1 RNA. [facility] Protein / Creatinine Ratio, Urineon 07-15-2022 Creatinine, Ur 33.5 mg/dL 28.0 - 217.0 mg/dL [facility] Protein (U) [Mass/Vol] 5 mg/dL [facility] Comment on above: No normal range esta blished. Urine Total Protein Creatinine Ratio 0.15 0.00 - 0.20 [facility] TYPE AND SCREENon 07-15-2022 ABO/Rh Positive [facility] Arm Band Number BE [id number] [facility] Expiration Date 07/18/2022,2359 [facility] Troponinon 07-15-2022 Troponin I.cardiac DL <= 0.01 ng/mL [Mass/Vol] ng/L 0 - 14 ng/L [facility] Comment on above: High Sensitivity Tro ponin values cannot be compared with other Troponin methodologies. [facility] XR CHEST (SINGLE VIEW FRONTA L)on 07-15-2022 No acute process. [facility] EXAMINATION: ONE XRAY VIEW OF THE CHEST 07/15/2022 4:26 pm COMPARISON: None. HISTORY: ORDERING SYSTEM PROVIDED HISTORY: shortness of breath TECHNOLOGIST PROVIDED HISTORY: Concerns for COVID shortness of breath FINDINGS: The lungs are without acute focal process. There is no effusion or pneumothorax. The cardiomediastinal silhouette is without acute process. The osseous structures are without acute process. [facility] Abner Dela Cruz MD - [...] without acute process. IMPRESSION: No acute process. [facility] [employer] Work Phone: Radiology Study observation (narrative) [facility] Work Phone: XR CHEST (SINGLE VIEW FRONTA L)Ordered By: Abner Dela Cruz on 07-15-2022 [facility] Work Phone: US PREG BIOPHY W [...] GERARD GONZALEZ Date: 2022-07-10 15:41 Normal [facility] US PREG BIOPHY W NON [...] by: GERARD GONZALEZ Date: 2022-07-04 16:21 Normal [facility] UA (CLEAN/CATCH) PICK UP/MICRO I F IND.on 06-30-2022 Bilirubin Ql (U) Negative Normal NEGATIVE [facility] Comment on above: Performed By: #### [id number] #### [facility] [address] [place] [address] Dr. Valeria Farris Clarity (U) CLEAR Normal CLEAR [facility] Comment on above: Performed By: #### [id number] #### [facility] [address] [place] [address] Dr. Valeria Farris Color (U) LT. YELLOW Normal YELLOW [facility] Comment on above: Performed By: #### [id number] #### [facility] [address] [place] [address] Dr. Valeria Farris Glucose Ql (U) Negative Normal NEGATIVE [facility] Comment on above: Performed By: #### [id number] #### [facility] [address] [place] [address] Dr. Valeria Farris Hemoglobin Ql (U) LARGE Abnormal NEGATIVE [facility] Comment on above: Performed By: #### [id number] #### [facility] [address] [place] [address] Dr. Valeria Farris Ketones Ql (U) Negative Normal NEGATIVE [facility] Comment on above: Performed By: #### [id number] #### [facility] [address] [place] [address] Dr. Valeria Farris LEUKOCYTES Negative Normal NEGATIVE [facility] Comment on above: Performed By: #### [id number] #### [facility] [address] [place] [address] Dr. Valeria Farris Nitrite Ql (U) Negative Normal NEGATIVE [facility] [facility] Comment on above: Performed By: #### [id number] #### [facility] [address] [place] [address] Dr. Valeria Farris pH (U) 6.5 [pH] Normal 5-9 [facility] Comment on above: Performed By: #### [id number] #### [facility] [address] [place] [address] Dr. Valeria Farris SPEC GRAVITY <=1.005 Abnormal 1.005-<=1.02 5 [facility] Comment on above: Performed By: #### [id number] #### [facility] [address] [place] [address] Dr. Valeria Farris UA PROTEIN Negative Normal NEGATIVE/ TRACE [facility] Comment on above: Performed By: #### [id number] #### [facility] [address] [place] [address] Dr. Valeria Farris UR MICRO IND INDICATED Normal [facility] Comment on above: Performed By: #### [id number] #### [facility] [address] [place] [address] Dr. Valeria Farris Urobilinogen Qn (U) 0.2 {Manolo'U}/dL Normal 0.2 - 1. 0 [facility] Comment on above: Performed By: #### [id number] #### [facility] [address] [place] [address] Dr. Valeria Farris URINE MICROSCOPIC ONLYon BACTERIA NONE SEEN Normal NONE SEEN [facility] Comment on above: Performed By: #### [id number] #### [facility] [address] [place] [address] Dr. Valeria Farris Bacteria identified Cx Nom (U) NOT INDICATED Normal [facility] Comment on above: Performed By: #### [id number] #### [facility] [address] [place] [address] Dr. Valeria Farris CAST NONE SEEN Normal NONE SEEN [facility] Comment on above: Performed By: #### [id number] #### [facility] [address] [place] [address] Dr. Valeria Farris Crystals LM Nom (Urine sed) NONE SEEN Normal NONE SEEN [facility] Comment on above: Performed By: #### [id number] #### [facility] [address] [place] [address] Dr. Valeria Farris Epithelial cells LM Ql (Urine sed) FEW Abnormal NONE SEEN /RARE [facility] Comment on above: Performed By: #### 4 [id number] #### [facility] [address] [place] [address] Dr. Valeria Farris MUCOUS NONE SEEN Normal NONE SEEN [facility] Comment on above: Performed By: #### 4 [id number] #### [facility] [address] [place] [address] Dr. Valeria Farris RBC 5-10 Abnormal 0-2 [facility] Comment on above: Performed By: #### 4 [id number] #### [facility] [address] [place] [address] Dr. Valeria Farris WBC 0-2 Abnormal NONE SEEN [facility] Comment on above: Performed By: #### 4 [id number] #### [facility] [address] [place] [address] Dr. Valeria Farris No Panel Informationon 06-29 [facility] T4, Freeon 06-29-2022 Free T4 [Mass/Vol] 0.82 ng/dL Low 0.93 - 1. 70 ng/dL [facility] Interpretation and review of laboratory results Abnormal [facility] TSHon 06-29-2022 TSH Qn 2.16 m[IU]/L [facility] US PREG BIOPHY W NON STRESSo [...] ALINE GALICIA Date: 2022-06-26 07:50 Normal [facility] US PREG BIOPHY W NON [...] GERARD GONZALEZ Date: 2022-06-19 15:28 Normal [facility] CREATININE CLEARon 3 BODY SURF AREA 2.35 Normal [facility] Comment on above: Performed By: #### DAPHNE SUN #### [facility] [address] [address] [address] Valeria MAST CLEARANCE 128.94 ml/min Critically high 75.00-115.00 [facility] Comment on above: Performed By: #### DAPHNE SUN #### [facility] [address] [address] [address] Valeria MAST, 24 HR UR 882.73 mg/24 hr Normal 800.00-1,8 00 .00 [facility] Comment on above: Performed By: #### DAPHNE SUN #### [facility] [address] [place] [address] Dr. Valeria Farris Creatinine [Mass/Vol] 0.35 mg/dL Critically low 0.55-1.02 [facility] Comment on above: Performed By: #### U LETI ICRO #### [facility] [address] [place] [address] Dr. Valeria Farris URINE CREAT 21.53 mg/dL Normal 20.00-300.00 [facility] Comment on above: Performed By: #### [facility] #### [facility] [address] [place] [address] Dr. Valeria Farris PROTEIN 24HR URINEon 023 T PROT, 24 HR UR 241.9 mg/24 hr Critically high <=149.1 [facility] Comment on above: Performed By: #### P [id number] #### [facility] [address] [place] [address] Dr. Valeria Farris UR PROT 5.9 mg/dL Normal <=11.9 [facility] Comment on above: Performed By: #### P [id number] #### [facility] [address] [place] [address] Dr. Valeria Farris UR TOT VOL 4100 ml/24 HR Normal [facility] Comment on above: Performed By: #### P ROT24U #### [facility] [address] [place] [address] Dr. Valeria Farris Performed By: #### U [facility] #### [facility] [address] [place] [address] Dr. Valeria Farris CBC AUTO DIFFon 06-17-2022 BASO # 0.0 103/ul Normal 0.0-0.1 [facility] Comment on above: Performed By: #### G LU1HR #### [facility] [address] [place] [address] Dr. Valeria Farris Basophils/100 WBC (Bld) 0.4 % Normal 0.2-2.0 [facility] Comment on above: Performed By: #### G LU1HR #### [facility] [address] [address] [address] Valeria Farris EO # 0.2 103/ul Normal 0.0-0.7 [facility] Comment on above: Performed By: #### G LU1HR #### [facility] [address] [address] [address] Valeria Farris Eosinophils/100 WBC (Bld) 2.0 % Normal 0.9-7.0 [facility] Comment on above: Performed By: #### G LU1HR #### [facility] [address] [place] [address] Dr. Valeria Farris Erythrocyte distribution width (RBC) [Ratio] 13.3 % Normal 11.0-15.0 [facility] Comment on above: Performed By: #### G LU1HR #### [facility] [address] [place] [address] Dr. Valeria Farris Hematocrit (Bld) [Volume fraction] 31.8 % Critically low 36.0-48.0 [facility] Comment on above: Performed By: #### G LU1HR #### [facility] [address] [place] [address] Dr. Valeria Farris Hemoglobin (Bld) [Mass/Vol] 10.8 g/dL Critically low 12.0-16.0 [facility] Comment on above: Performed By: #### G LU1HR #### [facility] [address] [place] [address] Dr. Valeria Farris IG # 0.09 10e3/ul Critically high 0.00-0.03 [facility] Comment on above: Performed By: #### G LU1HR #### [facility] [address] [place] [address] Dr. Valeria Farris IG % 0.8 % Critically high 0.0-0.5 [facility] Comment on above: Performed By: #### G LU1HR #### [facility] [address] [place] [address] Dr. Valeria Farris LYMPH # 2.2 103/ul Normal 1.2-3.8 [facility] Comment on above: Performed By: #### G LU1HR #### [facility] [address] [address] [address] Valeria Farris Lymphocytes/100 WBC (Bld) 20.0 % Critically low 20.5-60.0 [facility] Comment on above: Performed By: #### G LU1HR #### [facility] [address] [place] [address] Dr. Valeria Farris MANUAL DIFF REQ NO Normal [facility] Comment on above: Performed By: #### G LU1HR #### [facility] [address] [place] [address] Dr. Valeria Farris MCH (RBC) [Entitic mass] 28.4 pg Normal 26.7-34.0 [facility] Comment on above: Performed By: #### G LU1HR #### [facility] [address] [place] [address] Dr. Valeria Farris MCHC (RBC) [Mass/Vol] 34.0 g/dL Normal 29.9-35.2 [facility] Comment on above: Performed By: #### G LU1HR #### [facility] [address] [place] [address] Dr. Valeria Farris MCV (RBC) [Entitic vol] 83.7 fL Normal 81.0-99.0 [facility] Comment on above: Performed By: #### G LU1HR #### [facility] [address] [place] [address] Dr. Valeria Farris MONO # 0.9 103/ul Critically high 0.3-0.8 [facility] Comment on above: Performed By: #### G LU1HR #### [facility] [address] [place] [address] Dr. Valeria Farris Monocytes/100 WBC (Bld) 7.9 % Normal 1.7-12.0 [facility] Comment on above: Performed By: #### G LU1HR #### [facility] [address] [place] [address] Dr. Valeria Farris NEUT # 7.7 103/ul Critically high 1.4-6.5 [facility] Comment on above: Performed By: #### G LU1HR #### [facility] [address] [place] [address] Dr. Valeria Farris Neutrophils/100 WBC (Bld) 68.9 % Normal 43.0-75.0 [facility] Comment on above: Performed By: #### G LU1HR #### [facility] [address] [place] [address] Dr. Valeria Farris Platelet mean volume (Bld) [Entitic vol] 10.7 fL Normal 9.5-13.5 [facility] Comment on above: Performed By: #### G LU1HR #### [facility] [address] [place] [address] Dr. Valeria Farris PLT 195 103/ul Normal 150-450 [facility] Comment on above: Performed By: #### G LU1HR #### [facility] [address] [place] [address] Dr. Valeria Farris RBC 3.80 106/ul Critically low 4.20-5.40 [facility] Comment on above: Performed By: #### G LU1HR #### [facility] [address] [place] [address] Dr. Valeria Farris WBC 11.2 103/ul Critically high 4.0-11.0 [facility] Comment on above: Performed By: #### G LU1HR #### [facility] [address] [place] [address] Dr. Valeria Farris LDHon 06-17-2022 LDH 230 U/L Normal 81-234 [facility] Comment on above: Performed By: #### P ROT24U #### [facility] [address] [place] [address] Dr. Valeria Farris PROF 14(COMP METB)on 023 Albumin [Mass/Vol] 2.6 g/dL Critically low 3.4-5.0 [facility] Comment on above: Performed By: #### P ROT24U #### [facility] [address] [place] [address] Dr. Valeria Farris Albumin/Globulin [Mass ratio] 0.6 {ratio} Normal [facility] Comment on above: Performed By: #### P ROT24U #### [facility] [address] [place] [address] Dr. Valeria Farris ALP [Catalytic activity/Vol] 112 U/L Normal 46-116 [facility] Comment on above: Performed By: #### P ROT24U #### [facility] [address] [place] [address] Dr. Valeria Farris ALT [Catalytic activity/Vol] 18 U/L Normal 14-59 [facility] Comment on above: Performed By: #### P ROT24U #### [facility] [address] [place] [address] Dr. Valeria Farris Anion gap [Moles/Vol] 13.1 mmol/L Normal [facility] Comment on above: Performed By: #### P ROT24U #### [facility] [address] [place] [address] Dr. Valeria Farris AST [Catalytic activity/Vol] 22 U/L Normal 15-37 [facility] Comment on above: Performed By: #### P ROT24U #### [facility] [address] [place] [address] Dr. Valeria Farris Bilirubin [Mass/Vol] 0.2 mg/dL Normal 0.2-1.0 [facility] Comment on above: Performed By: #### P ROT24U #### [facility] [address] [place] [address] Dr. Valeria Farris Calcium [Mass/Vol] 9.1 mg/dL Normal 8.5-10.[address] [facility] Comment on above: Performed By: #### P ROT24U #### [facility] [address] [place] [address] Dr. Valeria Farris Chloride [Moles/Vol] 103 mmol/L Normal 98-107 [facility] Comment on above: Performed By: #### P ROT24U #### [facility] [address] [place] [address] Dr. Valeria Farris CO2 [Moles/Vol] 25.8 mmol/L Normal 21.0-32.0 [facility] Comment on above: Performed By: #### P ROT24U #### [facility] [address] [place] [address] Dr. Valeria Farris Creatinine [Mass/Vol] 0.35 mg/dL Critically low 0.55-1.02 [facility] Comment on above: Performed By: #### P ROT24U #### [facility] [address] [address] [address] Valeria Farris EGFR-AF GHANAIAN >60 Normal >=60 [facility] Comment on above: Performed By: #### P ROT24U #### [facility] [address] [place] [address] Dr. Valeria Farris EGFR-NON AF GHANAIAN >60 Normal >=60 [facility] Comment on above: Performed By: #### P ROT24U #### [facility] [address] [place] [address] Dr. Valeria Farris Globulin (S) [Mass/Vol] 4.2 g/dL Normal [facility] Comment on above: Performed By: #### P ROT24U #### [facility] [address] [place] [address] Dr. Valeria Farris Glucose [Mass/Vol] 80 mg/dL Normal 74-[address] [facility] Comment on above: Performed By: #### P ROT24U #### [facility] [address] [place] [address] Dr. Valeria Farris Potassium [Moles/Vol] 3.9 mmol/L Normal 3.5-5.1 [facility] Comment on above: Performed By: #### P ROT24U #### [facility] [address] [place] [address] Dr. Valeria Farris Protein [Mass/Vol] 6.8 g/dL Normal 6.4-8.2 [facility] Comment on above: Performed By: #### P ROT24U #### [facility] [address] [place] [address] Dr. Valeria Farris Sodium [Moles/Vol] 138 mmol/L Normal 136-[address] [facility] Comment on above: Performed By: #### P ROT24U #### [facility] [address] [place] [address] Dr. Valeria Farris Urea nitrogen [Mass/Vol] 10.0 mg/dL Normal 7.0-18.0 [facility] Comment on above: Performed By: #### P ROT24U #### [facility] [address] [place] [address] Dr. Valeria Farris Urea nitrogen/Creatinine [Mass ratio] 28.6 mg/mg Normal [facility] Comment on above: Performed By: #### P ROT24U #### [facility] [address] [place] [address] Dr. Valeria Farris PTTon 06-17-2022 aPTT Coag (Bld) [Time] 26.4 s Normal 22.3-36.2 [facility] Comment on above: Performed By: #### P REGQNT #### [facility] [address] [place] [address] Dr. Valeria Farris UA (CLEAN/CATCH) PICK UP/MICRO I F IND.on 06-17-2022 Bilirubin Ql (U) Negative Normal NEGATIVE [facility] Comment on above: Performed By: #### P REGQNT #### [facility] [address] [place] [address] Dr. Valeria Farris Clarity (U) CLEAR Normal CLEAR [facility] Comment on above: Performed By: #### P REGQNT #### [facility] [address] [place] [address] Dr. Valeria Farris Color (U) LT. YELLOW Normal YELLOW [facility] Comment on above: Performed By: #### P REGQNT #### [facility] [address] [place] [address] Dr. Valeria Farris Glucose Ql (U) Negative Normal NEGATIVE [facility] Comment on above: Performed By: #### P REGQNT #### [facility] [address] [place] [address] Dr. Valeria Farris Hemoglobin Ql (U) Negative Normal NEGATIVE [facility] Comment on above: Performed By: #### P REGQNT #### [facility] [address] [address] [address] Valeria Farris Ketones Ql (U) Negative Normal NEGATIVE [facility] Comment on above: Performed By: #### P REGQNT #### [facility] [address] [address] [address] Valeria Farris LEUKOCYTES Negative Normal NEGATIVE [facility] Comment on above: Performed By: #### P REGQNT #### [facility] [address] [address] [address] Valeria Farris Nitrite Ql (U) Negative Normal NEGATIVE [facility] Comment on above: Performed By: #### P REGQNT #### [facility] [address] [place] [address] Dr. Valeria Farris pH (U) 6.5 [pH] Normal 5-9 [facility] Comment on above: Performed By: #### P REGQNT #### [facility] [address] [place] [address] Dr. Valeria Farris SPEC GRAVITY 1.010 Normal 1.005-<=1.02 5 [facility] Comment on above: Performed By: #### P REGQNT #### [facility] [address] [place] [address] Dr. Valeria Farris UA PROTEIN Negative Normal NEGATIVE/ TRACE [facility] Comment on above: Performed By: #### P REGQNT #### [facility] [address] [address] [address] Valeria Farris UR MICRO IND NOT INDICATED Normal [facility] Comment on above: Performed By: #### P REGQNT #### [facility] [address] [address] [address] Valeria Farris Urobilinogen Qn (U) 0.2 {Manolo'U}/dL Normal 0.2 - 1. 0 [facility] Comment on above: Performed By: #### P REGQNT #### [facility] [address] [place] [address] Dr. Valeria Farris URIC ACID SERUMon 06-17-2022 Urate [Mass/Vol] 3.3 mg/dL Normal 2.6-6.0 [facility] Comment on above: Performed By: #### P ROT24U #### [facility] [address] [place] [address] Dr. Valeria Farris PAP ACOG PANEL 2: 30 to 65on 05-29-2022 . . Normal [facility] Comment on above: Result Comment: Perf ormed at: WB Performed By: #### 4 [id number] #### [facility] [address] [place] [address] Dr. Valeria Farris Age Gdln ACOG Testing 30-65 Normal [facility] Comment on above: Performed By: #### 4 [id number] #### [facility] [address] [place] [address] Dr. Valeria Farris DIAGNOSIS: Comment Normal [facility] Comment on above: Result Comment: NEGA TIVE FOR INTRAEPITHELIAL LESION OR MALIGNANCY. Performed at: WB Performed By: #### 4 [id number] #### [facility] [address] [place] [address] Dr. Valeria Farris HPV Aptima Negative Normal Negative [facility] Comment on above: Result Comment: This nucleic acid amplification test detects fourteen high-risk HPV types (16,18,31,33,35,39,45,51,52,56,58,59,66,68) without differentiation. Performed at: =G Performed By: #### [id number] #### [facility] [address] [place] [address] Dr. Valeria Farris HPV Genotype Reflex Comment Normal [facility] Comment on above: Result Comment: Crit eria not met, HPV Genotype not performed. Performed at: WB Performed By: #### [id number] #### [facility] [address] [place] [address] Dr. Valeria Farris Methodology: Comment Normal [facility] Comment on above: Result Comment: This liquid based ThinPrep(R) pap test was screened with the use of an image guided system. Performed at: WB Performed By: #### [id number] #### [facility] [address] [place] [address] Dr. Valeria Farris Note: Comment Normal [facility] Comment on above: Result Comment: The Pap smear is a screening test designed to aid in the detection of premalignant and malignant conditions of the uterine cervix. It is not a diagnostic procedure and should not be used as the sole means of detecting cervical cancer. Both false-positive and false-negative reports do occur. . Performed at: WB Performed By: #### [id number] #### [facility] [address] [place] [address] Dr. Valeria Farris Performed by: Comment Normal [facility] Comment on above: Result Comment: Jaye Simmons, Nuclear Powerplant Supervisor (ASCP) Performed at: WB Performed By: #### [id number] #### [facility] [address] [place] [address] Dr. Valeria Farris Specimen adequacy: Comment Normal [facility] Comment on above: Result Comment: Sati sfactory for evaluation. Performed at: WB Performed By: #### 4 [id number] #### [facility] [address] [place] [address] Dr. Valeria Farris POINT OF CARE GLUCOSEon 0 Glucose [Mass/Vol] 122 mg/dL Critically high 74-106 T [facility] Comment on above: Performed By: #### U ACSIND, UMICRO #### [facility] [address] [place] [address] Dr. Valeria Farris UA (CLEAN/CATCH) PICK UP/MICRO I F IND.on 05-29-2022 Bilirubin Ql (U) Negative Normal NEGATIVE [facility] Comment on above: Performed By: #### U ACSIND, UMICRO #### [facility] [address] [place] [address] Dr. Valeria Farris Clarity (U) CLEAR Normal CLEAR [facility] Comment on above: Performed By: #### U ACSIND, UMICRO #### [facility] [address] [place] [address] Dr. Valeria Farris Color (U) LT. YELLOW Normal YELLOW [facility] Comment on above: Performed By: #### U ACSIND, UMICRO #### [facility] [address] [address] [address] Valeria Farris Glucose Ql (U) Negative Normal NEGATIVE [facility] Comment on above: Performed By: #### U ACSIND, UMICRO #### [facility] [address] [address] [address] Valeria Farris Hemoglobin Ql (U) TRACE-INTACT Abnormal NEGATIVE [facility] Comment on above: Performed By: #### U ACSIND, UMICRO #### [facility] [address] [address] [address] Valeria Farris Ketones Ql (U) Negative Normal NEGATIVE [facility] Comment on above: Performed By: #### U ACSIND, UMICRO #### [facility] [address] [place] [address] Dr. Valeria Farris LEUKOCYTES Negative Normal NEGATIVE [facility] Comment on above: Performed By: #### U ACSIND, UMICRO #### [facility] [address] [place] [address] Dr. Valeria Farris Nitrite Ql (U) Negative Normal NEGATIVE [facility] Comment on above: Performed By: #### U ACSIND, ICRO #### [facility] [address] [place] [address] Dr. Valeria Farris pH (U) 5.5 [pH] Normal 5-9 [facility] Comment on above: Performed By: #### U ACSIND, UMICRO #### [facility] [address] [address] [address] Valeria Farris SPEC GRAVITY 1.010 Normal 1.005-<=1.02 5 [facility] Comment on above: Performed By: #### U ACSIND, UMICRO #### [facility] [address] [place] [address] Dr. Valeria Farris UA PROTEIN Negative Normal NEGATIVE/ TRACE [facility] Comment on above: Performed By: #### U ACSIND, UMICRO #### [facility] [address] [place] [address] Dr. Valeria Farris UR MICRO IND INDICATED Normal [facility] Comment on above: Performed By: #### U ACSIND, UMICRO #### [facility] [address] [place] [address] Dr. Valeria Farris Urobilinogen Qn (U) 0.2 {Manolo'U}/dL Normal 0.2 - 1. 0 [facility] Comment on above: Performed By: #### U ACSIND, UMICRO #### [facility] [address] [place] [address] Dr. Valeria Farris URINE MICROSCOPIC ONLYon BACTERIA NONE SEEN Normal NONE SEEN [facility] Comment on above: Performed By: #### U ACSIND, UMICRO #### [facility] [address] [place] [address] Dr. Valeria Farris Bacteria identified Cx Nom (U) NOT INDICATED Normal [facility] Comment on above: Performed By: #### U ACSIND, UMICRO #### [facility] [address] [place] [address] Dr. Valeria Farris CAST NONE SEEN Normal NONE SEEN [facility] Comment on above: Performed By: #### U ACSIND, UMICRO #### [facility] [address] [place] [address] Dr. Valeria Farris Crystals LM Nom (Urine sed) NONE SEEN Normal NONE SEEN [facility] Comment on above: Performed By: #### U ACSIND, UMICRO #### [facility] [address] [place] [address] Dr. Valeria Farris Epithelial cells LM Ql (Urine sed) FEW Abnormal NONE SEEN /RARE [facility] Comment on above: Performed By: #### U ACSIND, UMICRO #### [facility] [address] [place] [address] Dr. Valeria Farris MUCOUS NONE SEEN Normal NONE SEEN [facility] Comment on above: Performed By: #### U ACSIND, UMICRO #### [facility] [address] [place] [address] Dr. Valeria Farris RBC 0-2 Normal 0-2 [facility] Comment on above: Performed By: #### U ACSTRUPTI, UMICRO #### [facility] [address] [place] [address] Dr. Valeria Farris WBC NONE SEEN Normal NONE SEEN [facility] Comment on above: Performed By: #### U ACSTRUPTI, UMICRO #### [facility] [address] [place] [address] Dr. Valeria Farris CHLAMYDIA/GONOCOCCUS SARANYA (SW AB/URINE/PAPon 05-26-2022 Chlamydia trachomatis, SARANYA Negative Normal Negative [facility] Comment on above: Performed By: #### [id number] #### [facility] [address] [place] [address] Dr. Valeria Farris Neisseria gonorrhoeae, SARANYA Negative Normal Negative [facility] Comment on above: Performed By: #### 4 [id number] #### [facility] [address] [place] [address] Dr. Valeria Farris AMYLASEon 05-25-2022 Amylase [Catalytic activity/Vol] 30 U/L Normal 25-115 [facility] Comment on above: Performed By: #### P [id number] #### [facility] [address] [place] [address] Dr. Valeria Farris CARDIAC VERNON 3-6on 3 CK [Catalytic activity/Vol] 119 U/L Normal 26-192 [facility] Comment on above: Performed By: #### P [id number] #### [facility] [address] [place] [address] Dr. Valeria Farris CK.MB [Mass/Vol] ng/mL Normal <=3.60 [facility] Comment on above: Performed By: #### P ROT24U #### [facility] [address] [place] [address] Dr. Valeria Farris HSTROP <4.0 Normal 4.0-51.3 [facility] Comment on above: Result Comment: CUT- OFF POINTS HAVE BEEN ESTABLISHED BASED ON THE FOURTH UNIVERSAL DEFINITIONS OF MYOCARDIAL INFARCTION. THE UPPER REFERENCE LIMIT (URL) OF TROPONIN, DEFINED THE 99TH PERCENTILE OF cTnI DISTRIBUTION IN A REFERENCE POPULATION, HAS BEEN CONFIRMED THE DECISION THRESHOLD FOR VA DIAGNOSIS. Performed By: #### P [id number] #### [facility] [address] [address] [address] Valeria Farris CARDIAC VERNON ADMITon 023 CK [Catalytic activity/Vol] 121 U/L Normal 26-192 [facility] Comment on above: Performed By: #### P ROT24U #### [facility] [address] [place] [address] Dr. Valeria Farris CK.MB [Mass/Vol] 0.51 ng/mL Normal <=3.60 [facility] Comment on above: Performed By: #### P ROT24U #### [facility] [address] [place] [address] Dr. Valeria Farris HSTROP 4.1 pg/mL Normal 4.0-51.3 [facility] Comment on above: Result Comment: CUT- OFF POINTS HAVE BEEN ESTABLISHED BASED ON THE FOURTH UNIVERSAL DEFINITIONS OF MYOCARDIAL INFARCTION. THE UPPER REFERENCE LIMIT (URL) OF TROPONIN, DEFINED THE 99TH PERCENTILE OF cTnI DISTRIBUTION IN A REFERENCE POPULATION, HAS BEEN CONFIRMED THE DECISION THRESHOLD FOR VA DIAGNOSIS. Performed By: #### P ROT24U #### [facility] [address] [place] [address] Dr. Valeria Farris MINI 19 ng/mL Normal 9-82 [facility] Comment on above: Performed By: #### P ROT24U #### [facility] [address] [place] [address] Dr. Valeria Farris CBC AUTO DIFFon 05-25-2022 BASO # 0.0 103/ul Normal 0.0-0.1 [facility] Comment on above: Performed By: #### 4 [id number] #### [facility] [address] [place] [address] Dr. Valeria Farris Basophils/100 WBC (Bld) 0.2 % Normal 0.2-2.0 [facility] Comment on above: Performed By: #### 4 [id number] #### [facility] [address] [place] [address] Dr. Valeria Farris EO # 0.1 103/ul Normal 0.0-0.7 [facility] Comment on above: Performed By: #### 4 [id number] #### [facility] [address] [place] [address] Dr. Valeria Farris Eosinophils/100 WBC (Bld) 0.8 % Critically low 0.9-7.0 [facility] Comment on above: Performed By: #### 4 [id number] #### [facility] [address] [place] [address] Dr. Valeria Farris Erythrocyte distribution width (RBC) [Ratio] 13.5 % Normal 11.0-15.0 [facility] Comment on above: Performed By: #### 4 [id number] #### [facility] [address] [place] [address] Dr. Valeria Farris Hematocrit (Bld) [Volume fraction] 30.4 % Critically low 36.0-48.0 [facility] Comment on above: Performed By: #### 4 [id number] #### [facility] [address] [place] [address] Dr. Valeria Farris Hemoglobin (Bld) [Mass/Vol] 9.8 g/dL Critically low 12.0-16.0 [facility] Comment on above: Performed By: #### 4 [id number] #### [facility] [address] [place] [address] Dr. Valeria Farris IG # 0.21 10e3/ul Critically high 0.00-0.03 [facility] Comment on above: Performed By: #### 4 [id number] #### [facility] [address] [place] [address] Dr. Valeria Farris IG % 1.6 % Critically high 0.0-0.5 [facility] Comment on above: Performed By: #### 4 [id number] #### [facility] [address] [place] [address] Dr. Valeria Farris LYMPH # 2.8 103/ul Normal 1.2-3.8 [facility] Comment on above: Performed By: #### 4 [id number] #### [facility] [address] [place] [address] Dr. Valeria Farris Lymphocytes/100 WBC (Bld) 21.3 % Normal 20.5-60.0 [facility] Comment on above: Performed By: #### 4 [id number] #### [facility] [address] [place] [address] Dr. Valeria Farris MANUAL DIFF REQ NO Normal [facility] Comment on above: Performed By: #### 4 [id number] #### [facility] [address] [place] [address] Dr. Valeria Farris MCH (RBC) [Entitic mass] 28.2 pg Normal 26.7-34.0 [facility] Comment on above: Performed By: #### 4 [id number] #### [facility] [address] [place] [address] Dr. Valeria Farris MCHC (RBC) [Mass/Vol] 32.2 g/dL Normal 29.9-35.2 [facility] Comment on above: Performed By: #### 4 [id number] #### [facility] [address] [place] [address] Dr. Valeria Farris MCV (RBC) [Entitic vol] 87.6 fL Normal 81.0-99.0 [facility] Comment on above: Performed By: #### 4 [id number] #### [facility] [address] [place] [address] Dr. Valeria Farris MONO # 0.9 103/ul Critically high 0.3-0.8 [facility] Comment on above: Performed By: #### 4 [id number] #### [facility] [address] [place] [address] Dr. Valeria Farris Monocytes/100 WBC (Bld) 6.8 % Normal 1.7-12.0 [facility] Comment on above: Performed By: #### 4 [id number] #### [facility] [address] [place] [address] Dr. Valeria Farris NEUT # 9.0 103/ul Critically high 1.4-6.[address] [facility] Comment on above: Performed By: #### 4 [id number] #### [facility] [address] [place] [address] Dr. Valeria Farris Neutrophils/100 WBC (Bld) 69.3 % Normal 43.0-75.0 [facility] Comment on above: Performed By: #### 4 [id number] #### [facility] [address] [address] [address] Valeria Farris Platelet mean volume (Bld) [Entitic vol] 10.5 fL Normal 9.5-13.5 [facility] Comment on above: Performed By: #### 4 [id number] #### [facility] [address] [address] [address] Valeria Farris PLT 187 103/ul Normal 150-450 [facility] Comment on above: Performed By: #### 4 [id number] #### [facility] [address] [address] [address] Valeria Farris RBC 3.47 106/ul Critically low 4.20-5.40 [facility] Comment on above: Performed By: #### 4 [id number] #### [facility] [address] [address] [address] Valeria Farris WBC 13.0 103/ul Critically high 4.0-11.0 [facility] Comment on above: Performed By: #### 4 [id number] #### [facility] [address] [place] [address] Dr. Valeria Farris CTA CHEST WO W [...] Daryl LOPEZ Date: 2022-05-25 01:55 Normal [facility] CULTURE URINEon 05-25-2022 CULTURE URINE Culture Observations : HEAVY GROWTH OF MIXED GENITAL RIO. NO POTENTIAL PATHOGENS SEEN. Normal [facility] Comment on above: Performed By: #### 4 [id number] #### [facility] [address] [place] [address] Dr. Valeria Farris LIPASEon 05-25-2022 Lipase [Catalytic activity/Vol] 54.0 U/L Critically low 73.0-393.0 [facility] Comment on above: Performed By: #### P [id number] #### [facility] [address] [place] [address] Dr. Valeria Farris PROF 14(COMP METB)on 023 Albumin [Mass/Vol] 2.5 g/dL Critically low 3.4-5.0 [facility] Comment on above: Performed By: #### P ROT24U #### [facility] [address] [place] [address] Dr. Valeria Farris Albumin/Globulin [Mass ratio] 0.6 {ratio} Normal [facility] Comment on above: Performed By: #### P ROT24U #### [facility] [address] [place] [address] Dr. Valeria Farris ALP [Catalytic activity/Vol] 97 U/L Normal 46-116 [facility] Comment on above: Performed By: #### P ROT24U #### [facility] [address] [place] [address] Dr. Valeria Farris ALT [Catalytic activity/Vol] 25 U/L Normal 14-59 [facility] Comment on above: Performed By: #### P ROT24U #### [facility] [address] [address] [address] Valeria Farris Anion gap [Moles/Vol] 14.2 mmol/L Normal [facility] Comment on above: Performed By: #### P ROT24U #### [facility] [address] [address] [address] Valeria Farris AST [Catalytic activity/Vol] 12 U/L Critically low 15-37 [facility] Comment on above: Performed By: #### P ROT24U #### [facility] [address] [address] [address] Valeria Farris Bilirubin [Mass/Vol] 0.2 mg/dL Normal 0.2-1.0 [facility] Comment on above: Performed By: #### P ROT24U #### [facility] [address] [address] [address] Valeria Farris Calcium [Mass/Vol] 8.5 mg/dL Normal 8.5-10.[address] [facility] Comment on above: Performed By: #### P ROT24U #### [facility] [address] [address] [address] Valeria Farris Chloride [Moles/Vol] 103 mmol/L Normal 98-107 [facility] Comment on above: Performed By: #### P ROT24U #### [facility] [address] [address] [address] Valeria Farris CO2 [Moles/Vol] 23.0 mmol/L Normal 21.0-32.0 [facility] Comment on above: Performed By: #### P ROT24U #### [facility] [address] [address] [address] Valeria Farris Creatinine [Mass/Vol] 0.39 mg/dL Critically low 0.55-1.02 [facility] Comment on above: Performed By: #### P ROT24U #### [facility] [address] [address] [address] Valeria Farris EGFR-AF GHANAIAN >60 Normal >=60 [facility] Comment on above: Performed By: #### P ROT24U #### [facility] [address] [address] [address] Valeria Farris EGFR-NON AF GHANAIAN >60 Normal >=60 [facility] Comment on above: Performed By: #### P ROT24U #### [facility] [address] [address] [address] Valeria Farris Globulin (S) [Mass/Vol] 4.0 g/dL Normal [facility] Comment on above: Performed By: #### P ROT24U #### [facility] [address] [address] [address] Valeria Farris Glucose [Mass/Vol] 113 mg/dL Critically high 74-106 [facility] Comment on above: Performed By: #### P ROT24U #### [facility] [address] [address] [address] Valeria Farris Potassium [Moles/Vol] 3.2 mmol/L Critically low 3.5-5.1 [facility] Comment on above: Performed By: #### P ROT24U #### [facility] [address] [address] [address] Valeria Farris Protein [Mass/Vol] 6.5 g/dL Normal 6.4-8.[address] [facility] Comment on above: Performed By: #### P ROT24U #### [facility] [address] [address] [address] Valeria Farris Sodium [Moles/Vol] 137 mmol/L Normal 136-145 [facility] Comment on above: Performed By: #### P ROT24U #### [facility] [address] [address] [address] Valeria Farris Urea nitrogen [Mass/Vol] 8.0 mg/dL Normal 7.0-18.0 [facility] Comment on above: Performed By: #### P ROT24U #### [facility] [address] [address] [address] Valeria Farris Urea nitrogen/Creatinine [Mass ratio] 20.5 mg/mg Normal [facility] Comment on above: Performed By: #### P ROT24U #### [facility] [address] [place] [address] Dr. Valeria Farris UA (CLEAN/CATCH) PICK UP/MICRO I F IND.on 05-25-2022 Bilirubin Ql (U) Negative Normal NEGATIVE [facility] Comment on above: Performed By: #### G LU1HR #### [facility] [address] [place] [address] Dr. Valeria Farris Clarity (U) CLEAR Normal CLEAR [facility] Comment on above: Performed By: #### G LU1HR #### [facility] [address] [place] [address] Dr. Valeria Farris Color (U) YELLOW Normal YELLOW [facility] Comment on above: Performed By: #### G LU1HR #### [facility] [address] [place] [address] Dr. Valeria Farris Glucose Ql (U) Negative Normal NEGATIVE [facility] Comment on above: Performed By: #### G LU1HR #### [facility] [address] [place] [address] Dr. Valeria Farris Hemoglobin Ql (U) TRACE-INTACT Abnormal NEGATIVE [facility] Comment on above: Performed By: #### G LU1HR #### [facility] [address] [place] [address] Dr. Valeria Farris Ketones Ql (U) TRACE Abnormal NEGATIVE [facility] Comment on above: Performed By: #### G LU1HR #### [facility] [address] [place] [address] Dr. Valeria Farris LEUKOCYTES Negative Normal NEGATIVE [facility] Comment on above: Performed By: #### G LU1HR #### [facility] [address] [place] [address] Dr. Valeria Farris Nitrite Ql (U) Negative Normal NEGATIVE [facility] Comment on above: Performed By: #### G LU1HR #### [facility] [address] [place] [address] Dr. Valeria Farris pH (U) 6.0 [pH] Normal 5-9 [facility] Comment on above: Performed By: #### G LU1HR #### [facility] [address] [place] [address] Dr. Valeria Farris SPEC GRAVITY >=1.030 Abnormal 1.005-<=1.02 5 [facility] Comment on above: Performed By: #### G LU1HR #### [facility] [address] [place] [address] Dr. Valeria Farris UA PROTEIN Negative Normal NEGATIVE/ TRACE [facility] Comment on above: Performed By: #### G LU1HR #### [facility] [address] [place] [address] Dr. Valeria Farris UR MICRO IND INDICATED Normal [facility] Comment on above: Performed By: #### G LU1HR #### [facility] [address] [place] [address] Dr. Valeria Farris Urobilinogen Qn (U) 0.2 {Manolo'U}/dL Normal 0.2 - 1. 0 [facility] Comment on above: Performed By: #### G LU1HR #### [facility] [address] [place] [address] Dr. Valeria Farris URINE MICROSCOPIC ONLYon BACTERIA SMALL Abnormal NONE SEEN [facility] Comment on above: Performed By: #### G LU1HR #### [facility] [address] [place] [address] Dr. Valeria Farris Bacteria identified Cx Nom (U) INDICATED Normal [facility] Comment on above: Performed By: #### G LU1HR #### [facility] [address] [place] [address] Dr. Valeria Farris CA OX CRYSTALS FEW Normal [facility] Comment on above: Performed By: #### G LU1HR #### [facility] [address] [place] [address] Dr. Valeria Farris CAST NONE SEEN Normal NONE SEEN [facility] Comment on above: Performed By: #### G LU1HR #### [facility] [address] [place] [address] Dr. Valeria Farris Crystals LM Nom (Urine sed) SEEN Abnormal NONE SEEN [facility] Comment on above: Performed By: #### G LU1HR #### [facility] [address] [place] [address] Dr. Valeria Farris Epithelial cells LM Ql (Urine sed) MANY Abnormal NONE SEEN /RARE [facility] Comment on above: Performed By: #### G LU1HR #### [facility] [address] [place] [address] Dr. Valeria Farris MUCOUS TRACE Abnormal NONE SEEN [facility] Comment on above: Performed By: #### G LU1HR #### [facility] [address] [place] [address] Dr. Valeria Farris RBC 2-5 Abnormal 0-2 [facility] Comment on above: Performed By: #### G LU1HR #### [facility] [address] [place] [address] Dr. Valeria Farris WBC NONE SEEN Normal NONE SEEN [facility] Comment on above: Performed By: #### G LU1HR #### [facility] [address] [place] [address] Dr. Valeria Farris VAGINITIS/VAGINOSIS DNA PROB Sam 05-25-2022 Litzy species Negative Normal Negative [facility] Comment on above: Performed By: #### P REGQNT #### [facility] [address] [place] [address] Dr. Valeria Farris Gardnerella vaginalis Positive Abnormal Negative [facility] Comment on above: Performed By: #### P REGQNT #### [facility] [address] [place] [address] Dr. Valeria Farris Trichomonas vaginalis Negative Normal Negative [facility] Comment on above: Performed By: #### P REGQNT #### [facility] [address] [place] [address] Dr. Valeria Farris UA (CLEAN/CATCH) PICK UP/MICRO I F IND.on 05-04-2022 Bilirubin Ql (U) Negative Normal NEGATIVE [facility] Comment on above: Performed By: #### P REGQNT #### [facility] [address] [place], [place] [id number] Dr. Valeria Farris Clarity (U) CLEAR Normal CLEAR [facility] Comment on above: Performed By: #### P REGQNT #### [facility] [address] [place] [address] Dr. Valeria Farris Color (U) LT. YELLOW Normal YELLOW [facility] Comment on above: Performed By: #### P REGQNT #### [facility] [address] [place] [address] Dr. Valeria Farris Glucose Ql (U) Negative Normal NEGATIVE [facility] Comment on above: Performed By: #### P REGQNT #### [facility] [address] [place] [address] Dr. Valeria Farris Hemoglobin Ql (U) SMALL Abnormal NEGATIVE [facility] Comment on above: Performed By: #### P REGQNT #### [facility] [address] [place] [address] Dr. Valeria Farris Ketones Ql (U) TRACE Abnormal NEGATIVE [facility] Comment on above: Performed By: #### P REGQNT #### [facility] [address] [place] [address] Dr. Valeria Farris LEUKOCYTES Negative Normal NEGATIVE [facility] Comment on above: Performed By: #### P REGQNT #### [facility] [address] [place] [address] Dr. Valeria Farris Nitrite Ql (U) Negative Normal NEGATIVE [facility] Comment on above: Performed By: #### P REGQNT #### [facility] [address] [place] [address] Dr. Valeria Farris pH (U) 6.5 [pH] Normal 5-9 [facility] Comment on above: Performed By: #### P REGQNT #### [facility] [address] [place] [address] Dr. Valeria Farris SPEC GRAVITY 1.025 Normal 1.005-<=1.02 5 [facility] Comment on above: Performed By: #### P REGQNT #### [facility] [address] [place] [address] Dr. Valeria Farris UA PROTEIN Negative Normal NEGATIVE/ TRACE [facility] Comment on above: Performed By: #### P REGQNT #### [facility] [address] [place] [address] Dr. Valeria Farris UR MICRO IND INDICATED Normal [facility] Comment on above: Performed By: #### P REGQNT #### [facility] [address] [place] [address] Dr. Valeria Farris Urobilinogen Qn (U) 0.2 {Manolo'U}/dL Normal 0.2 - 1. 0 [facility] Comment on above: Performed By: #### P REGQNT #### [facility] [address] [place] [address] Dr. Valeria Farris URINE MICROSCOPIC ONLYon BACTERIA NONE SEEN Normal NONE SEEN [facility] Comment on above: Performed By: #### U ACSIND, UMICRO #### [facility] [address] [place] [address] Dr. Valeria Farris Bacteria identified Cx Nom (U) NOT INDICATED Normal [facility] Comment on above: Performed By: #### U ACSIND, UMICRO #### [facility] [address] [place] [address] Dr. Valeria Farris CAST NONE SEEN Normal NONE SEEN [facility] Comment on above: Performed By: #### U ACSIND, UMICRO #### [facility] [address] [place] [address] Dr. Valeria Farris Crystals LM Nom (Urine sed) NONE SEEN Normal NONE SEEN [facility] Comment on above: Performed By: #### U ACSIND, UMICRO #### [facility] [address] [place] [address] Dr. Valeria Farris Epithelial cells LM Ql (Urine sed) FEW Abnormal NONE SEEN /RARE [facility] Comment on above: Performed By: #### U ACSIND, UMICRO #### [facility] [address] [place] [address] Dr. Valeria Farris MUCOUS TRACE Abnormal NONE SEEN [facility] Comment on above: Performed By: #### U ACSIND, UMICRO #### [facility] [address] [place] [address] Dr. Valeria Farris RBC 0-2 Normal 0-2 [facility] Comment on above: Performed By: #### U ACSZAID LYLESICRO #### [facility] [address] [place] [address] Dr. Valeria Farris WBC NONE SEEN Normal NONE SEEN [facility] Comment on above: Performed By: #### [facility] #### [facility] [address] [place] [address] Dr. Valeria Farris AMYLASEon 04-12-2022 Amylase [Catalytic activity/Vol] 31 U/L Normal 25-115 [facility] Comment on above: Performed By: #### G LU1HR #### [facility] [address] [place] [address] Dr. Valeria Farris BUNon 04-12-2022 Urea nitrogen [Mass/Vol] 7.0 mg/dL Normal 7.0-18.0 [facility] Comment on above: Performed By: #### G LU1HR #### [facility] [address] [place] [address] Dr. Valeria Farris CBC AUTO DIFFon 04-12-2022 BASO # 0.0 103/ul Normal 0.0-0.1 [facility] Comment on above: Performed By: #### P REGQNT #### [facility] [address] [place] [address] Dr. Valeria Farris Basophils/100 WBC (Bld) 0.3 % Normal 0.2-2.0 [facility] Comment on above: Performed By: #### P REGQNT #### [facility] [address] [place] [address] Dr. Valeria Farris EO # 0.3 103/ul Normal 0.0-0.7 [facility] Comment on above: Performed By: #### P REGQNT #### [facility] [address] [place] [address] Dr. Valeria Farris Eosinophils/100 WBC (Bld) 2.3 % Normal 0.9-7.0 [facility] Comment on above: Performed By: #### P REGQNT #### [facility] [address] [address] [address] Valeria Farris Erythrocyte distribution width (RBC) [Ratio] 12.8 % Normal 11.0-15.0 [facility] Comment on above: Performed By: #### P REGQNT #### [facility] [address] [place] [address] Dr. Valeria Farris Hematocrit (Bld) [Volume fraction] 34.9 % Critically low 36.0-48.0 [facility] Comment on above: Performed By: #### P REGQNT #### [facility] [address] [address] [address] Valeria Farris Hemoglobin (Bld) [Mass/Vol] 11.8 g/dL Critically low 12.0-16.0 [facility] Comment on above: Performed By: #### P REGQNT #### [facility] [address] [place] [address] Dr. Valeria Farris IG # 0.08 10e3/ul Critically high 0.00-0.03 [facility] Comment on above: Performed By: #### P REGQNT #### [facility] [address] [place] [address] Dr. Valeria Farris IG % 0.7 % Critically high 0.0-0.5 [facility] Comment on above: Performed By: #### P REGQNT #### [facility] [address] [address] [address] Valeria Farris LYMPH # 2.6 103/ul Normal 1.2-3.8 [facility] Comment on above: Performed By: #### P REGQNT #### [facility] [address] [place] [address] Dr. Valeria Farris Lymphocytes/100 WBC (Bld) 22.4 % Normal 20.5-60.0 [facility] Comment on above: Performed By: #### P REGQNT #### [facility] [address] [place] [address] Dr. Valeria Farris MANUAL DIFF REQ NO Normal [facility] Comment on above: Performed By: #### P REGQNT #### [facility] [address] [place] [address] Dr. Valeria Farris MCH (RBC) [Entitic mass] 28.5 pg Normal 26.7-34.0 [facility] Comment on above: Performed By: #### P REGQNT #### [facility] [address] [place] [address] Dr. Valeria Farris MCHC (RBC) [Mass/Vol] 33.8 g/dL Normal 29.9-35.2 [facility] Comment on above: Performed By: #### P REGQNT #### [facility] [address] [place] [address] Dr. Valeria Farris MCV (RBC) [Entitic vol] 84.3 fL Normal 81.0-99.0 [facility] Comment on above: Performed By: #### P REGQNT #### [facility] [address] [place] [address] Dr. Valeria Farris MONO # 0.8 103/ul Normal 0.3-0.8 [facility] Comment on above: Performed By: #### P REGQNT #### [facility] [address] [place] [address] Dr. Valeria Farris Monocytes/100 WBC (Bld) 6.8 % Normal 1.7-12.0 [facility] Comment on above: Performed By: #### P REGQNT #### [facility] [address] [place] [address] Dr. Valeria Farris NEUT # 7.8 103/ul Critically high 1.4-6.[address] [facility] Comment on above: Performed By: #### P REGQNT #### [facility] [address] [place] [address] Dr. Valeria Farris Neutrophils/100 WBC (Bld) 67.5 % Normal 43.0-75.0 [facility] Comment on above: Performed By: #### P REGQNT #### [facility] [address] [place] [address] Dr. Valeria Farris Platelet mean volume (Bld) [Entitic vol] 10.3 fL Normal 9.5-13.5 [facility] Comment on above: Performed By: #### P REGQNT #### [facility] [address] [place] [address] Dr. Valeria Farris PLT 195 103/ul Normal 150-450 [facility] Comment on above: Performed By: #### P REGQNT #### [facility] [address] [place] [address] Dr. Valeria Farris RBC 4.14 106/ul Critically low 4.20-5.[address] [facility] Comment on above: Performed By: #### P REGQNT #### [facility] [address] [place] [address] Dr. Valeria Farris WBC 11.5 103/ul Critically high 4.0-11.0 [facility] Comment on above: Performed By: #### P REGQNT #### [facility] [address] [place] [address] Dr. Valeria Farris CREATININEon 04-12-2022 Creatinine [Mass/Vol] 0.44 mg/dL Critically low 0.55-1.02 [facility] Comment on above: Performed By: #### G LU1HR #### [facility] [address] [place] [address] Dr. Valeria Farris EGFR-AF GHANAIAN >60 Normal >=60 [facility] Comment on above: Performed By: #### G LU1HR #### [facility] [address] [place] [address] Dr. Valeria Farris EGFR-NON AF GHANAIAN >60 Normal >=60 [facility] Comment on above: Performed By: #### G LU1HR #### [facility] [address] [place] [address] Dr. Valeria Farris LIPASEon 04-12-2022 Lipase [Catalytic activity/Vol] 62.0 U/L Critically low 73.0-393.0 [facility] Comment on above: Performed By: #### G LU1HR #### [facility] [address] [place] [address] Dr. Valeria Farris LIVER PROFILEon 04-12-2022 Albumin [Mass/Vol] 2.9 g/dL Critically low 3.4-5.0 [facility] Comment on above: Performed By: #### G LU1HR #### [facility] [address] [address] [address] Valeria Farris Albumin/Globulin [Mass ratio] 0.7 {ratio} Normal [facility] Comment on above: Performed By: #### G LU1HR #### [facility] [address] [address] [address] Valeria Farris ALP [Catalytic activity/Vol] 86 U/L Normal 46-116 [facility] Comment on above: Performed By: #### G LU1HR #### [facility] [address] [place] [address] Dr. Valeria Farris ALT [Catalytic activity/Vol] 14 U/L Normal 14-59 [facility] Comment on above: Performed By: #### G LU1HR #### [facility] [address] [place] [address] Dr. Valeria Farris AST [Catalytic activity/Vol] 12 U/L Critically low 15-37 [facility] Comment on above: Performed By: #### G LU1HR #### [facility] [address] [place] [address] Dr. Valeria Farris BILI, CONJUGATED 0.1 mg/dL Normal 0.0-0.2 [facility] Comment on above: Performed By: #### G LU1HR #### [facility] [address] [address] [address] Valeria Farris Bilirubin [Mass/Vol] 0.2 mg/dL Normal 0.2-1.0 [facility] Comment on above: Performed By: #### G LU1HR #### [facility] [address] [place] [address] Dr. Valeria Farris Globulin (S) [Mass/Vol] 4.2 g/dL Normal [facility] Comment on above: Performed By: #### G LU1HR #### [facility] [address] [address] [address] Valeria Farris Protein [Mass/Vol] 7.1 g/dL Normal 6.4-8.2 [facility] Comment on above: Performed By: #### G LU1HR #### [facility] [address] [place] [address] Dr. Valeria Farris PROF 14(COMP METB)on 022 Anion gap [Moles/Vol] 13.1 mmol/L Normal [facility] Comment on above: Performed By: #### G LU1HR #### [facility] [address] [address] [address] Valeria Farris Calcium [Mass/Vol] 8.7 mg/dL Normal 8.5-10.[address] [facility] Comment on above: Performed By: #### G LU1HR #### [facility] [address] [place] [address] Dr. Valeria aFrris Chloride [Moles/Vol] 100 mmol/L Normal 98-107 [facility] Comment on above: Performed By: #### G LU1HR #### [facility] [address] [address] [address] Valeria Farris CO2 [Moles/Vol] 25.4 mmol/L Normal 21.0-32.0 [facility] Comment on above: Performed By: #### G LU1HR #### [facility] [address] [place] [address] Dr. Valeria Farris Glucose [Mass/Vol] 87 mg/dL Normal 74-[address] [facility] Comment on above: Performed By: #### G LU1HR #### [facility] [address] [address] [address] Valeria Farris Potassium [Moles/Vol] 3.5 mmol/L Normal 3.5-5.1 [facility] Comment on above: Performed By: #### G LU1HR #### [facility] [address] [address] [address] Valeria Farris Sodium [Moles/Vol] 135 mmol/L Critically low 136-145 [facility] Comment on above: Performed By: #### G LU1HR #### [facility] [address] [address] [address] Valeria Farris Urea nitrogen/Creatinine [Mass ratio] 15.9 mg/mg Normal [facility] Comment on above: Performed By: #### G LU1HR #### [facility] [address] [address] [address] Valeria Farris US PREG CERVICAL LENGTHon [...] GERARD GONZALEZ Date: 2022-04-12 16:39 Normal [facility] UA (CLEAN/CATCH) PICK UP/MICRO I F IND.on 04-11-2022 Bilirubin Ql (U) Negative Normal NEGATIVE [facility] Comment on above: Performed By: #### U LETI UMICRO #### [facility] [address] [place] [address] Dr. Valeria Farris Clarity (U) CLEAR Normal CLEAR [facility] Comment on above: Performed By: #### U ACSTRUPTI UMICRO #### [facility] [address] [address] [address] Valeira Farris Color (U) LT. YELLOW Normal YELLOW [facility] Comment on above: Performed By: #### U ACSTRUPTI UMICRO #### [facility] [address] [place] [address] Dr. Valeria Farris Glucose Ql (U) Negative Normal NEGATIVE [facility] Comment on above: Performed By: #### U ACSTRUPTI UMICRO #### [facility] [address] [place] [address] Dr. Valeria Farris Hemoglobin Ql (U) TRACE-INTACT Abnormal NEGATIVE [facility] Comment on above: Performed By: #### U ACSIND, UMICRO #### [facility] [address] [address] [address] Valeria Farris Ketones Ql (U) Negative Normal NEGATIVE [facility] Comment on above: Performed By: #### U ACSIND, UMICRO #### [facility] [address] [place] [address] Dr. Valeria Farris LEUKOCYTES Negative Normal NEGATIVE [facility] Comment on above: Performed By: #### U ACSIND, UMICRO #### [facility] [address] [address] [address] Valeria Farris Nitrite Ql (U) Negative Normal NEGATIVE [facility] Comment on above: Performed By: #### U ACSIND, UMICRO #### [facility] [address] [place] [address] Dr. Valeria Farris pH (U) 6.5 [pH] Normal 5-9 [facility] Comment on above: Performed By: #### U ACSTRUPTI, UMICRO #### [facility] [address] [place] [address] Dr. Valeria Farris SPEC GRAVITY 1.010 Normal 1.005-<=1.02 5 [facility] Comment on above: Performed By: #### U ACSTRUPTI, UMICRO #### [facility] [address] [place] [address] Dr. Valeria Farris UA PROTEIN Negative Normal NEGATIVE/ TRACE [facility] Comment on above: Performed By: #### U ACSTRUPTI, UMICRO #### [facility] [address] [place] [address] Dr. Valeria Farris UR MICRO IND INDICATED Normal [facility] Comment on above: Performed By: #### U ACSTRUPTI, UMICRO #### [facility] [address] [place] [address] Dr. Valeria Farris Urobilinogen Qn (U) 0.2 {Manolo'U}/dL Normal 0.2 - 1. 0 [facility] Comment on above: Performed By: #### U ACSIND, UMICRO #### [facility] [address] [address] [address] Valeria Farris URINE MICROSCOPIC ONLYon BACTERIA NONE SEEN Normal NONE SEEN [facility] Comment on above: Performed By: #### U ACSTRUPTI, UMICRO #### [facility] [address] [address] [address] Valeria Farris Bacteria identified Cx Nom (U) NOT INDICATED Normal [facility] Comment on above: Performed By: #### U ACSIND, UMICRO #### [facility] [address] [place] [address] Dr. Valeria Farris CAST NONE SEEN Normal NONE SEEN [facility] Comment on above: Performed By: #### U ACSIND, UMICRO #### [facility] [address] [place] [address] Dr. Valeria Farris Crystals LM Nom (Urine sed) NONE SEEN Normal NONE SEEN [facility] Comment on above: Performed By: #### U ACSTRUPTI, UMICRO #### [facility] [address] [place] [address] Dr. Valeria Farris Epithelial cells LM Ql (Urine sed) FEW Abnormal NONE SEEN /RARE [facility] Comment on above: Performed By: #### U ACSTRUPTI, UMICRO #### [facility] [address] [place] [address] Dr. Valeria Farris MUCOUS NONE SEEN Normal NONE SEEN [facility] Comment on above: Performed By: #### U ACSTRUPTI UMICRO #### [facility] [address] [place] [address] Dr. Valeria Farris RBC 0-2 Normal 0-2 [facility] Comment on above: Performed By: #### U ACSTRUPTI UMICRO #### [facility] [address] [place] [address] Dr. Valeria Farris WBC 0-2 Abnormal NONE SEEN [facility] Comment on above: Performed By: #### U ACSTRUPTI, UMICRO #### [facility] [address] [place] [address] Dr. Valeria Farris US PREG ANATOMY SINGLEon [...] ALINE GALICIA Date: 2022-03-28 10:57 Normal [facility] XR SHOULDER RT 2V or >on XR SHOULDER RT 2V or > EXAM: XR SHOULDER RT 2V or > INDICATION: Pain. COMPARISON: None. TECHNIQUE: Right shoulder, 3 views. FINDINGS: No acute fracture or dislocation. Intact glenohumeral and acromioclavicular joints. Unremarkable soft tissues. IMPRESSION: Normal right shoulder. Electronically authenticated by: GILDARDO TAYLOR Date: 2022-03-19 08:36 Normal [facility] AFP TETRA PROFILE (MATERNAL) on 03-08-2022 AFP MoM 0.60 Normal [facility] Comment on above: Performed By: #### U LETI UMICRO #### [facility] [address] [address] [address] Valeria Farris AFP Value 15.2 ng/mL Normal [facility] Comment on above: Performed By: #### U LETI UMICRO #### [facility] [address] [address] [address] Valeria Farris Comment Comment Normal [facility] Comment on above: Result Comment: Nicolás Ramirez, Ph.D., [facility] Director . References: Available Upon Request. . Multiples Of Median Cutoffs Abbreviation Definitions For AFP Elevations IDD- Insulin Dep Diabetes Rodriguez 2.5 Black 2.8 OSBR- Open Spina Bifida IDD 2.0 Twins 4.5 Risk DSR Cutoff 1:270 DSR- Down Syndrome Risk T18 Cutoff 1:100 T18- Trisomy 18 . For further inquiries contact [employer] [facility] at [phone]. . This test was developed and its performance characteristics determined by [employer]. It has not been cleared or approved by the Food and Drug Administration. Performed By: #### U LETI UMICRO #### [facility] [address] [address] [address] Valeria Farris CHACE MoM 0.90 Normal [facility] Comment on above: Performed By: #### U LETI UMICRO #### [facility] [address] [address] [address] Valeria Farris CHACE Value 95.93 pg/mL Normal [facility] Comment on above: Performed By: #### U LETI UMICRO #### [facility] [address] [address] [address] Valeria Farris DSR (By Age) 1 IN 656 Normal [facility] Comment on above: Performed By: #### U LETI UMICRO #### [facility] [address] [address] [address] Valeria Farris DSR (Second Trimester) 1 IN 5782 Normal [facility] Comment on above: Performed By: #### U LETI UMICRO #### [facility] [address] [address] [address] Valeria Archibald. [age] on Collection Date 16.7 WEEKS Normal [facility] Comment on above: Performed By: #### U LETI UMICRO #### [facility] [address] [address] [address] Valeria Archibaldat. Age Based On SUNSHINE Normal [facility] Comment on above: Result Comment: 07/23 Performed By: #### U ACSTRUPTI UMICRO #### [facility] [address] [address] [address] Valeria Farris hCG MoM 0.61 Normal [facility] Comment on above: Performed By: #### U LETI UMICRO #### [facility] [address] [address] [place] [address] m[IU]/mL Normal [facility] Comment on above: Performed By: #### U LETI UMICRO #### [facility] [address] [address] [address] Valeria Farris Insulin Dep Diabetes No Normal [facility] Comment on above: Performed By: #### U ACSTRUPTI UMICRO #### [facility] [address] [address] [address] Valeria Farris Interpretation Comment Normal [facility] Comment on above: Result Comment: Inte rpretation: [...] Performed By: #### U ACSIND, UMICRO #### [facility] [address] [address] [address] Valeria Farris [age] Normal [facility] Comment on above: Performed By: #### U ACSIND, UMICRO #### [facility] [address] [address] [address] Valeria Farris Multiple Gestation No Normal [facility] Comment on above: Performed By: #### U ACSIND, UMICRO #### [facility] [address] [address] [address] Valeria F[place] [address] Normal [facility] Comment on above: Performed By: #### U ACSIND, UMICRO #### [facility] [address] [address] [address] Valeria Farris PDF . [facility] Comment on above: Performed By: #### U ACSTRUPTI, UMICRO #### [facility] [address] [address] [address] Valerai Farris Race [facility] Comment on above: Performed By: #### U ACSTRUPTI, UMICRO #### [facility] [address] [address] [address] Valeria Farris Results Report [facility] Comment on above: Performed By: #### U ACSIND, UMICRO #### [facility] [address] [address] [address] Valeria Farris T18 (By Age) 1:2556 Normal [facility] Comment on above: Performed By: #### U ACSIND, UMICRO #### [facility] [address] [address] [address] Valeria Farris T18 Risk Not increased [facility] Comment on above: Performed By: #### U ACSIND, UMICRO #### [facility] [address] [address] [address] Valeria Farris Test Results: Negative Normal [facility] Comment on above: Performed By: #### U ACSIND, UMICRO #### [facility] [address] [address] [address] Valeria Farris uE3 MoM 0.75 Normal [facility] Comment on above: Performed By: #### U DAPHNE LANDEROS #### [facility] [address] [address] [address] Valeria Farris uE3 Value 0.71 ng/mL Normal [facility] Comment on above: Performed By: #### U ALEX LANDEROSRO #### [facility] [address] [place] [address] Dr. Valeria Farris GLUCOSE - 1HRon 03-03-2022 Glucose [Mass/Vol] 214 mg/dL Critically high 74-106 T [facility] Comment on above: Performed By: #### G LU1HR #### [facility] [address] [place] [address] Dr. Valeria Farris HEPATITIS C VIRUS AB W/ REFL EX QUANTon 01-11-2022 HCV AB <0.1 Normal 0.0-0.9 [facility] Comment on above: Performed By: #### P REGQNT #### [facility] [address] [place] [address] Dr. Valeria Farris Interpretation: Comment Normal [facility] Comment on above: Result Comment: Nega tive Not infected with HCV, unless recent infection is suspected or other evidence exists to indicate HCV infection. Performed By: #### P REGQNT #### [facility] [address] [place] [address] Dr. Valeria Farris HEP B SURFACE ANTIGEN SCREEN on 01-10-2022 HBsAg Screen Negative Normal Negative [facility] Comment on above: Performed By: #### P REGQNT #### [facility] [address] [place] [address] Dr. Valeria Farris HIV 1 AND 2 WITH REFLEXon HIV Screen 4th Generation wRfx Non-Reactive Normal Non Reactive [facility] Comment on above: Result Comment: HIV Negative HIV-1/HIV-2 antibodies and HIV-1 p24 antigen were NOT detected. There is no laboratory evidence of HIV infection. Performed By: #### H IV12 #### [facility] [address] [place] [address] Dr. Valeria Farris RPR QUANTon 01-10-2022 Rapid Plasma Reagin, Quant Non-Reactive Normal NonRea<1:1 [facility] Comment on above: Result Comment: [place] palomo Note: This test does not meet current guidelines for screening and diagnosis of syphilis. This test is intended for following treatment response in patients being treated for syphilis infection. To screen for syphilis infection, a reflex cascade that includes both RPR and a treponema-specific assay should be utilized, such as Treponema pallidum (Syphilis) Screening [place] ([id number]) or Rapid Plasma Reagin (RPR) Test With Reflex to Quantitative RPR and Confirmatory Treponema pallidum Antibodies ([id number]). Performed By: #### R PRQ #### [facility] [address] [place] [address] Dr. Valeria Farris RUBELLA AB IGGon 01-10-2022 Rubella Antibodies, IgG 1.83 index Normal Immune >0.99 [facility] Comment on above: Result Comment: Non- immune <0.90 Equivocal 0.90 - 0.99 Immune >0.99 Performed By: #### U ACSIND, UMICRO #### [facility] [address] [place] [address] Dr. Valeria Farris CBC AUTO DIFFon 01-09-2022 BASO # 0.0 103/ul Normal 0.0-0.1 [facility] Comment on above: Performed By: #### 4 [id number] #### [facility] [address] [place] [address] Dr. Valeria Farris Basophils/100 WBC (Bld) 0.4 % Normal 0.2-2.0 [facility] Comment on above: Performed By: #### 4 [id number] #### [facility] [address] [place] [address] Dr. Valeria Farris EO # 0.3 103/ul Normal 0.0-0.7 [facility] Comment on above: Performed By: #### 4 [id number] #### [facility] [address] [place] [address] Dr. Valeria Farris Eosinophils/100 WBC (Bld) 3.5 % Normal 0.9-7.0 [facility] Comment on above: Performed By: #### 4 [id number] #### [facility] [address] [place] [address] Dr. Valeria Farris Erythrocyte distribution width (RBC) [Ratio] 13.6 % Normal 11.0-15.0 [facility] Comment on above: Performed By: #### 4 [id number] #### [facility] [address] [place] [address] Dr. Valeria Farris Hematocrit (Bld) [Volume fraction] 38.9 % Normal 36.0-48.0 [facility] Comment on above: Performed By: #### 4 [id number] #### [facility] [address] [place] [address] Dr. Valeria Farris Hemoglobin (Bld) [Mass/Vol] 12.9 g/dL Normal 12.0-16.0 [facility] Comment on above: Performed By: #### 4 [id number] #### [facility] [address] [place] [address] Dr. Valeria Farris IG # 0.04 10e3/ul Critically high 0.00-0.03 [facility] Comment on above: Performed By: #### 4 [id number] #### [facility] [address] [place] [address] Dr. Valeria Farris IG % 0.4 % Normal 0.0-0.5 [facility] Comment on above: Performed By: #### 4 [id number] #### [facility] [address] [place] [address] Dr. Valeria Farris LYMPH # 2.1 103/ul Normal 1.2-3.8 [facility] Comment on above: Performed By: #### 4 [id number] #### [facility] [address] [place] [address] Dr. Valeria Farris Lymphocytes/100 WBC (Bld) 21.5 % Normal 20.5-60.0 [facility] Comment on above: Performed By: #### 4 [id number] #### [facility] [address] [place] [address] Dr. Valeria Farris MANUAL DIFF REQ NO Normal [facility] Comment on above: Performed By: #### 4 [id number] #### [facility] [address] [place] [address] Dr. Valeria Farris MCH (RBC) [Entitic mass] 27.9 pg Normal 26.7-34.0 [facility] Comment on above: Performed By: #### 4 [id number] #### [facility] [address] [place] [address] Dr. Valeria Farris MCHC (RBC) [Mass/Vol] 33.2 g/dL Normal 29.9-35.2 [facility] Comment on above: Performed By: #### 4 [id number] #### [facility] [address] [place] [address] Dr. Valeria Farris MCV (RBC) [Entitic vol] 84.0 fL Normal 81.0-99.0 [facility] Comment on above: Performed By: #### 4 [id number] #### [facility] [address] [place] [address] Dr. Valeria Farris MONO # 0.6 103/ul Normal 0.3-0.8 [facility] Comment on above: Performed By: #### 4 [id number] #### [facility] [address] [place] [address] Dr. Valeria Farris Monocytes/100 WBC (Bld) 5.6 % Normal 1.7-12.0 [facility] Comment on above: Performed By: #### 4 [id number] #### [facility] [address] [place] [address] Dr. Valeria Farris NEUT # 6.7 103/ul Critically high 1.4-6.[address] [facility] Comment on above: Performed By: #### 4 [id number] #### [facility] [address] [place] [address] Dr. Valeria Farris Neutrophils/100 WBC (Bld) 68.6 % Normal 43.0-75.0 [facility] Comment on above: Performed By: #### 4 [id number] #### [facility] [address] [place] [address] Dr. Valeria Farris Platelet mean volume (Bld) [Entitic vol] 9.9 fL Normal 9.5-13.5 [facility] Comment on above: Performed By: #### 4 [id number] #### [facility] [address] [address] [address] Valeria Farris PLT 244 103/ul Normal 150-450 [facility] Comment on above: Performed By: #### 4 [id number] #### [facility] [address] [address] [address] Valeria Farris RBC 4.63 106/ul Normal 4.20-5.40 [facility] Comment on above: Performed By: #### 4 [id number] #### [facility] [address] [address] [address] Valeria Farris WBC 9.7 103/ul Normal 4.0-11.0 [facility] Comment on above: Performed By: #### 4 [id number] #### [facility] [address] [address] [address] Valeria Farris CULTURE URINEon 01-09-2022 CULTURE URINE Culture Observations : MODERATE GROWTH OF MIXED GENITAL RIO. NO POTENTIAL PATHOGENS SEEN. Normal [facility] Comment on above: Performed By: #### U RCX #### [facility] [address] [address] [address] Valeria Farris GLYCOHEMOGLOBIN A1Con 2021 ADA RECOMMENDATION SEE BELOW Normal [facility] Comment on above: Result Comment: ADA RECOMMENDED LIMIT 4.0 - 6.0 ADA THERAPEUTIC TARGET < 7.0 ACTION SUGGESTED > 7.0 Performed By: #### P REGQNT #### [facility] [address] [address] [address] Valeria Farris Glucose [Mass/Vol] 111 mg/dL Normal [facility] Comment on above: Performed By: #### P REGQNT #### [facility] [address] [address] [address] Valeria Farris HbA1c (Bld) [Mass fraction] 5.5 % Normal 4.5-6.2 [facility] Comment on above: Performed By: #### P REGQNT #### [facility] [address] [address] [address] Valeria Farris LETHA BOX TEST PT SEND OUTo n 01-09-2022 SENT TO REF LAB 01/09/2022 Normal [facility] Comment on above: Performed By: #### N BOX #### [facility] [id number] Valeria Farris TYPE AND SCREENon 01-09-2022 TYPE AND SCREEN Negative Normal [facility] Comment on above: Performed By: #### 4 [id number] #### [facility] [address] [address] [address] Valeria Farris US PREG TVon 12-30-2021 [...] GERARD GONZALEZ Date: 2021-12-30 17:14 Normal [facility] US PREG TVon 12-15-2021 US [...] GERARD GONZALEZ Date: 2021-12-14 22:02 Normal [facility] HCG-BETA SUBUNIT QUANTon hCG,Beta Subunit,Qnt,Serum 571 mIU/mL Normal [facility] Comment on above: Result Comment: Fema le (Non-) 0 - 5 (Postmenopausal) 0 - 8 . Female () Weeks of Gestation 3 6 - 71 4 10 - 750 5 217 - 7138 6 158 - 71549 7 3697 -058269 8 06527 -197484 9 41069 -853835 10 33555 -616983 12 70410 -594683 14 82187 - 03665 15 00113 - 29661 16 9040 - 85308 17 8175 - 92626 18 8099 - 40921 Jamel ECLIA methodology Performed By: #### P REGQNT #### [facility] [address] [place] [address] Dr. Valeria Farris HCG-BETA SUBUNIT QUANTon hCG,Beta Subunit,Qnt,Serum 65 mIU/mL Normal [facility] Comment on above: Result Comment: Fema le (Non-) 0 - 5 (Postmenopausal) 0 - 8 . Female () Weeks of Gestation 3 - 4 - 750 5 217 - 7138 6 158 - 16129 7 3697 -277971 8 79322 -924423 9 08201 -956490 10 59476 -450655 12 46991 -324835 14 89373 - 41544 15 73783 - 40856 16 9040 - 71174 17 8175 - 98266 18 8099 - 96773 Jamel ECLIA methodology Performed By: #### U ACSIND, ALEXRO #### [facility] [address] [place] [address] Dr. Valeria Farris HCG-BETA SUBUNIT QUANTon hCG,Beta Subunit,Qnt,Serum 18 mIU/mL Normal [facility] Comment on above: Result Comment: Fema le (Non-) 0 - 5 (Postmenopausal) 0 - 8 . Female () Weeks of Gestation 3 - 71 4 10 - 750 5 217 - 7138 6 158 - 99841 7 3697 -039076 8 97609 -930287 9 37606 -445288 10 12082 -262567 12 87430 -711562 14 18737 - 54812 15 86450 - 21043 16 3072 - 14106 17 9237 - 41256 18 4675 - 84464 Jamel ECLIA methodology Performed By: #### G LU1HR #### [facility] [address] [place] [address] Dr. Valeria Farris PREG QUANT HCGon 10-05-2021 HCG QUANT <1 Normal [facility] Comment on above: Performed By: #### P REGQNT #### [facility] [address] [place] [address] Dr. Valeria Farris HCG RANGE SEE BELOW Normal [facility] Comment on above: Result Comment: 5-50 0-1 WEEK 40-300 1-2 WEEKS 100-1,000 2-3 WEEKS 500-6,000 3-4 WEEKS 5,000-200,000 1-2 MONTHS 10,000-100,000 2-3 MONTHS 3,000-50,000 2ND TRIMESTER 1,000-50,000 3RD TRIMESTER Performed By: #### P REGQNT #### [facility] [address] [place] [address] Dr. Valeria Farris FREE T4on 09-12-2021 Free T4 [Mass/Vol] 0.88 ng/dL Normal 0.76-1.[address] [facility] Comment on above: Performed By: #### P REGQNT #### [facility] [address] [place] [address] Dr. Valeria Farris TSHon 09-12-2021 TSH 1.564 uIU/mL Normal 0.358-3.740 [facility] Comment on above: Performed By: #### 4 [id number] #### [facility] [address] [place] [address] Dr. Valeria Farris TSH RANGE SEE BELOW Normal [facility] Comment on above: Result Comment: <0.3 4 UIU/ml HYPERTHYROID 0.34-5.60 UIU/ml EUTHYROID >5.60 UIU/ml HYPOTHYROID Performed By: #### 4 [id number] #### [facility] [address] [place] [address] Dr. Valeria Farris US VENOUS DOPPLER L [...] GERARD GONZALEZ Date: 2021-09-12 14:31 Normal [facility] Coding Summaryon 10-16-2020 Coding Summary HTMLBase 64 PiamziceHLb9dDz+PGhlYWQ+ PQ8MIGQkG23kkSIjcT5OY4mR KR5RVWVVATSEYL1KDC1iuSN5 OZncX2YmqtZu TpoqcZDsGN74GGz9PBR5aZpw YZyknW4eaKYfF6c5NzPxFO28 bN27IUrlIHSbRqV2JfAeppng bWFy S9nzKbQyuQPtZvm+PHRhYmxl IHdpZHRoPScxMDAlJyBzdHls GB8lTv8gJYOeIXZccAgpiGTy OiBj a0eeGXZtPXjsLD3paIspU5Ux qZB9KYBwu6o4Uo47eKN+PHRk QWL2wAjcFCdhm389UnNij7su IDM3 wOKyAEfwFHB0M27vq6P0WGFu WDTwMJF2zAD2qS3gtKwnyrom Z6HtkPDcCmL9LKJ6tNLjiK4w bGln twncoU0nMux+T21YFN4ZINHP OJ6EBqo0Z6UoVnftfZW+PC90 SMZsYA92uEJtuJXtr3qiySh5 JzEw ZVEnMXB6fSroQYthl7XuRMLg V03rsYVfu2D2UYUbqUzmqBNu XcXaiZP0oU4iWSsqnhvvd0hz dzsn Gusfn5bsyl42cV67G30bEVqm LKTfOVT4FYXgFFDmyOqvia2z tM3zJm0+SCdqk7ocp5ancAs1 IjIw LRCpspWwlSiqDUK8x3WsRr23 T4BfjJgfq9QkJrj6xz33rCQx a1R6yEB8WVwgWCBlpZ4pMOdt ZnQ6 JVAbCqCqyW75fPZnAVygIm4f hLpupApqOK0iVUJiijzsPRFl kO0sHYCowCGbuIcxMV3dGCOl bjtm i558NxBcPNI7UMMzdDLzW3Gq gN9kVxFyQNUnMIAvW9SqcUYh NGgbU733KSzaLbH0BVAhmgBi Y2Fs RFVydKhjIbS0z1O5Rp4Nl9Vc wklcMWW6FOzmRLX9IvY2FpEx PwK1N6WvXes0YMSjtWkeFZ0y J3Bh XCVyzbcestnuuZA3UKMoZLUs dM56dIJmXXnhZm1pn8R3t846 QDOlUEUcwQ48Sf2cjIvkJSZr dCBU iM7bpbrgl5hksfghYbKdZGQm WLq5WTr1PGFkjEreYdPxIIX4 KaE9XUU2aRNboN4ybBagfbry dG9w Oyc+I52kqK0jMVX0VXR2xcqx ZZTwvsPhNT48WT45F0IdIqmh dGFibGU+OEDzfzQaiRocPU4o YmFj b9dna3VoTAzrU5EnDEEsNWnq Hbv3EDIuDEW9iYT4qK7gYOTh VCtoy3S2hQX0P1WaycDldn1q b2xs JJZxHWzpV35jrUTqm1C2XJJt rYB7AKRlyGjbUkMurU51Zkh+ TEHmtEmpw8KgYbtwz2ujx0an dGg9 CzPgAKZxtqAfiCxlZVF3t4Xl Jl37B71yDXkyZNJeGNZuGXOb NMBwaEpzzy8izN9xSi6+PGNv bCB3 dNP6xX4yDQRgVxK5FCjbS738 XdCfvBCkGtftl8zjr0juuKf2 UgAsNPPbeyBqvAjtOEI2r9Mn Lz48 M52iQRzjWAYrLGYeDVCrAFUl hUbyzi4egX5vSd5+WW5kn6nb cy06xS34uSL+IBLdGHB4aZuy PSdw RDFreQ1tAZjlEgU8PAQkXoJd tI56cQPtJNbuMh7zbUspeMah RW7sTUTmvzhsh362RiVqg2fk IDEw zZKwWPgyIMY2J79jd3K3BMVl IBVkSEA8jTS7tS6niRsxkpwh bGVmdDsgdmVydGljYWwtYWxp Z246 IHRvcDsnPlBhdGllbnQgTmFt PJk3P5BrTpi2XJCtlRicSO4z vLUbRQmmHb5pwOarfQviHF0y NTBp zeumb052OtDkg2fhQLDjkBOc ZZeeLBL7A75hk6P2GFHiOKVp SCP0dVO7wE9yhEollyvcmYJj dDsg qeQblFilBJmxWWmgU860TPCi fAbfNtDrkwFkCGOjaSG5SU58 JY90eIPhy4X0aBW6K8NcBFWn bmct pochwMS2IFMrAYTrfO56Hy8c yYhcLp9uITZsZHS2BVWnuWSu T8RolI4eOvVgDVUwIYFxB5Lu eHQt GJdaQ714AHbgTgP8GCItldBc R6QlSPIbfSkdHrR3o2G0Vf9L Q5A3KD21OK09wGEyb0A3vTT9 J3Bh QIMrguifoqznlKJ4DMFqNFMz wL01Mq8tfHecAr0uYPVaQGU7 IDZogEPeY9RijF7mCvHjOLLs MDAw I7TsgGXlVHsmM974JOifHlM6 JHQwuzIhI8OjYXKzbMrxEiU0 m1I4Em2UJYa1RN09QI41gUYg c3R5 mPU3X6VbRHMxhyqrbrmqdJE4 IRPqONQjcF37Cl0dlCtyJg5n VWZlFUU3XOUfnKSxE1YbbP9z OiAj JINkVOCxY1DgcAUoOBbmE091 MJwjEvH4MAHiofFyN8DgGSMf gSzvWxA3t3B7Dj5RBAMcNR00 IFR5 iAG4DR65TQ90J3VuVkubjUXo bGU+PHRhYmxlIHdpZHRoPScx XVHpFpIcgObqUP6oFs0jLDNn LWNv cBnezTLtOnJsm0pcXHXyMGbb KQ9jvAnuI4KziDC5RHKfa4y6 Hb84T31xS4OgoLC+PGNvbCB3 aWR0 gY5gRlAfDmX1LCqdW414LdOx eFWqUgqbh4gbi2qbqTa3VbE7 TVNvseSncHtnYRD7q9CiSn85 Y29s IHdpZHRoPSIxNSUiIHZhbGln kn3okJ7bQg6+QRPojLY1sGI2 oE2rBtBbXlQ9XWgwW258QdUl cCIv Qjqxv2kjd4nzoPv8HmDdTGIc hcYenFgqOOD0g3MgKu59U7Px mAtiv4ZmAbx8wx62eRZlf9N2 bGU9 L4HaCJZgcjlpfTOahXcmXY6k GQNjlcizWAKqbW3tWSHlX5j9 VzBsUtN2SAfpU8WhnrL0XBYw cHQg QOeeEIZ0O20kf1V2FGTpSDWs NYL9oSV9tP7feDmyauyuvFHh uAvovpJolAcuYEejFPytA019 IHRv aJurREIyzW7cYJYuqNRdsIzm CG9oCTKstxhsJaDGSaGDXcZD LCBNRUdBTiBNQVJJRTwvdGQ+ PHRk BPJ1zYesPFcqWVWrfR2bEPWo D5g5FpPdEnY8CRshL8BcSYFy qntcRu74aJ4yYyBlRgM2XNkf O2Zv cpH7BCDwxONnMObcBVW3K83k k9H0VQCnHXJqVRD7iNG5aI4c bGlnbjogbGVmdDsgdmVydGlj YWwt ZHmiY181KCCpeWnpNlYsXjQ2 GkA4OTL2I8VaOzj5TJGqnNri LF7niUKxAHxhVv0jvScavGui MC4w BDFfprvlJUTcjF6rLTUxwPYz aKwqWY6kWLDdbzwkq848ByMm MCO2YMRlhRZrX3UqkS5qFnYd MDAw KKWbO1GzfYNhCUorN128KZnq BaG7VQWrnrSoN1VrEPOchIyo KlF9z0Z0Di7qASOTHOYpugat dGQ+ HLUuOOX8oRmwGDlsGJByeU4r LIPfW8h5NmRdFeP3SJeeE0Rx JBJzwxqrJt30sJ0eCaLwVcP8 MGlu L3YzqiO5NASgpDYdSQpcFPE8 M04mu0W3TWPiGTVsHFT7rGA9 hG5nuSyfiuwfbWRqvCxrleHm dGlj KZupQRuuK957UPXmzLrtBmGQ TUFMRTwvdGQ+PGHkZPL5cLeb TSaeTJJukE2zKFJkG9y7MmQm LjA1 VVbxL1VoLVZizsfmKj88aY8d EeBxQnV0CFgeL5AoxvS4AKSz jIRhNJlzBJK2N22vv6G8FBXo MDAw XCG5vYH6pU2hrJuladazcCOs kUubtoBthPzeFVgmVWhuO309 VVQpaAxkYy9FIQ54RA93Q6Fz Pjwv dGFibGU+PHRhYmxlIHdpZHRo KCvbNKKdBfMalZveWA8bFu2u VCNzTBEnwWuubROwKyYhi1mm YXBz ANfwJQ7zrTiqB0DctWK7TLKr k0m4Wb19D64nD0FauON+PGNv vRY4jNT8vY2qCiIzCpZ5XTul Z249 RbQdzASyGqdhc4xlv4vefYm8 UpVyDLMiylSpwRbuWOZ8y6Lu Fa60G51xRJyyNDXhFYSaOFUz IHZh mPjoic2oaH1mZx7+PGNvbCB3 bDZ2dG6jAsNnBwT1FGnjK144 YvGppZCeWulyJ31aV5KgjZR+ PHRy Xxt9ZDXgvBfjAY2coJLfUFgh Gq9oQAL1RdJdCuDsUYkoV0Ov STCjwkxhvadhyHA3OONjQTAb aW47 Dz0brIswZy6mGDKhIGH3YGQk bDMiY6ExqQ7uNyDeLHVuKNEc W3BrmQQqQCgcC828CFneRmY5 IHZl nyQhW5PhPTJoiWrmNgJ1q4C9 Er4EoUivrCFfQO2lNdRpVBq2 N9KzPuf8RERntRsvGD7tfDXb ZGlu Cq4xcQmteKtaGF7gIMBbbfxk n521PwXqw2lbBPHqeYRuBBpv ZGY1I99he8U2PHNnTPDiLUQ3 dGV4 kQ4tdXaglbffcKLkkKxxbyHm uEprRFqdFSmwV814NWOelAfr YrQGRre0Q0LfNnm9WHObpQuz ZT0n hRAnIMhhBe9pcGbcmVtcGH7d CWVbcqpas400AuOru3oqEFJb qDJhKMjsCUR0U57gp9H8BRMo MDAw CWK9sLP3xP7teUtbkxqrnYXa dWffgvQkyHseVSrhSFotF183 OHCyoFybWd9OGbq9M8TzWan4 ZCBz eVsvEG4fgXVjNFhfDq5kyXst aXpiIS6nXTUivovep860LcBt g8dmHFBogXGvKQgxUMV5H83r b3I6 YWYsGZMaLYK7lUX6qS4hwFlz bjogbGVmdDsgdmVydGljYWwt ZGmzU438BGJjbAviVzCtaQDh Ojwv dGQ+YY03ox76S6VqCxceUrz5 HEQdIXB4wHM9eE0pIPLdJMmj i2V2yYY1E2SkgtSbni5gg8yg YXBz ZTo (more content not included)... [facility] Coding Summary HTMLBase 64 WlzjxxxzOSp1dHt+PGhlYWQ+ QA6JUFNhQ37sjSGigC4QV2bS KO0RZUEHFDHDFM4WHN6dsNQ3 TJkbG8IfzfCx QhelyOAfTQ00SDm2RMJ2mTts DOqtrE8ypUBwZ8o6RgUeBN54 kR17PUnpMGLlEoI4FnFzlyvr bWFy O8lvQyHhyRLpQnw+PHRhYmxl IHdpZHRoPScxMDAlJyBzdHls OX3mXo4qWJCsZIJktWgnrLDb OiBj q1kcIYTsZHtvUD2inByhZ8Vh wMN1CEQgw8u9Qy14tSH+PHRk XIT2xBjlZLfmc177IiRpb4bs IDM3 tOWeDWpyNBJ4V04ms8X2IBSi YEJvTGO2qHS6zA9dkEafkrqk A7WdrZGkGnP4UVX8jAPfoT7p bGln zyzcwV8gBon+R08IDV5NJMAM HB5KRif8V4FiPcuykPA+PC90 DXPgWV52uFLaaFHig8wjyUf1 JzEw SKBtEYI7wKgkLEpxy6GnYXWl A92oaUBja3M5FJHriGsnlXZl WwOiePV0gF6mMAlkptsyb7xb dzsn Isxwm3gtfo56hT03M56zJGzf CYKrETT6BUNbMKDtdJknmu2k hB7tYe9+TWsnn6sou8sjfQj9 IjIw HXKvtyGuqYjxAMO0y3YhFf54 B7WaiNawm7HjMif5bl32pLTi l6M1hBJ6DLycSJGgdO4iDXbz ZnQ6 QZWgVhVqkB86sZYaNHmfLq7z xTqynFqpHD5mMILgjsznSBRs dF1tMYTptRAnwLayQC0sMKJx bjtm v439NmSnTPK1ALAyyTYiF2Tk eY0zCsYjBXRkYJQwQ6EkvSDk AQstK014NEnaJyC1ITShoeZm Y2Fs XGEcwHeuNeW6f5E0Lo8To2Rw xkahUWU4OUvrWOJ1LpV0EnSt XwZ9E0ZbXls8RHSsdZewXR9r J3Bh APXidqwlgybunLO7QPZhSWTl zZ34yTSoJLioRs3mz7Y3g114 BKCvPUJfbE66Yx4zfCmpKEUg dCBU tY7mbibzx7isnezlPnTiFIIy HLj0VKl7EZKgzXlaYlGfHTU5 FfP1ZEQ8cMCnyZ2nwFrgpsmh dG9w Oyc+Y00wgP0oNIM7ZAV9wbqf TBRqeqScQK39TQ05M7JoXyoh dGFibGU+MTOtvvBuiAmjCY7k YmFj v7plz4QiMDwsN2KuCYHfQGcq Hxt5CSXpUGC5wYM8mF5rUCQt BRzfk5C1kSQ7N6TesvIqvk5h b2xs VHOaAIdlI75bgNVsv8X0FNXs cPD1RBDrmKklSvAzsD00Phl+ GZEliFiuk3PhEwhzq1rvf7rh dGg9 YlJiYSPugeTtyMvfPHP7k0Qe Re32S10iIBpnDVPdKYTyHHOr FPKyiOqydh5pbP1hWl0+PGNv bCB3 eAZ4lH5iSIHhLqO6UQbsF896 LpWanTSqBhisc9nuf6lyoEb2 RtGpUWDwisClyWvrIUO7x6Wl Lz48 D70hPXuoSXGjUHPiYSByQQIp nHmrrw1gkA2pFp2+RL8rp3pr ph69jP17oEO+XKDiFXY2yQeo PSdw TGNsvM3tWPkhNqM9YBPlGtCb eF61jXVuTWkyIr6aqIoevUzu GX9vMNMicnrob080VcZro5wv IDEw uOOeUMrbJLH6R49dx5J4VYYs FKYcZDN7lXZ6eC5zwLfwxtxz bGVmdDsgdmVydGljYWwtYWxp Z246 IHRvcDsnPlBhdGllbnQgTmFt REj8Z9KqCva9BALwmOgdYI5u fHBzRWbpFe7meJjzlXfiPC8h NTBp jstrh262KmTgl3ujVIAeiTAm DIpoMLN0J33oj9K4QDDpSSMx LYW9qFX3aT3baXkgmdrleYQt dDsg xwSqtTnmHRilWOhqB295YZSt bYveNkRguhJwIAMyhAB6ZP88 FO28oGBda0K2gAE1I6AfXAFf bmct nxfblMN7JKVsXRVwpF05Gw2t fDflHf6dDUZxCXZ9KQQnzFBi Q9JjaZ9gSiKzLIMhEVAfM7Jd eHQt KMckK678AXheZgW7ZLOzbqLp Z8LoJFYqcLehOnM1n9C0Qf2O N1T4MK07LN11aHSyc0V4vJA9 J3Bh PWDvfrrnmlmdhJK6OLJqOKLp bD77Db0ilQlkIw6hJWUuOTS3 GFAdjZTfZ2GejI6lDbPsTVEe MDAw V8NxtEDtPSsiF595UVasBcQ8 OPBvmeVqJ2FlAWDeqIluSkJ3 e8S0Lc7XRVb2FB63SY70fSEl c3R5 jBK5W3QdCRSjwrhqthczwEZ7 UDAlMJQdkC16Bf9zqUmbQv3g QNXxATO7MXDjwYLlB2SgiB8n OiAj JXVbZDCgF3TruLIcFGtsS108 ETlrUzF4OQZoxpWkZ1HvUKSv tAjhLqM9p9E1Yo2MFMGpMJ49 IFR5 kPA2KF17MH28H1RpGymtoBLm bGU+PHRhYmxlIHdpZHRoPScx HTHqPzYurVlvEY8fQc2lQFFa LWNv tImlwNOyYtUzz9lwAWOgIKql MQ4oxPqiA7BedQO8MWCto4o1 Ac82S94bN0LzrJV+PGNvbCB3 aWR0 fO3hFfLzWaW3AMkbS916QqJu lJTuQkeow5spr1lsfKt2CgC8 DSZsduWadZwiKCR3d4MwXj91 Y29s IHdpZHRoPSIxNSUiIHZhbGln fe8qlE5jCc9+OVDnrLP5xVR5 bY5rIeAhVrV5UElvP370NiHq cCIv Skxdq5ypb8smfUp2JlRzLGSb pcVrgWlrODY5g5YvIs74I2Lk qSinz9OuYfn5xs65zQHjt8V3 bGU9 M1GyRDCswylzfSIqlTkoSY6a QOGmzepwLEEynJ1tHIUuJ4p1 BoFtSqD0QFjjO3WckmP7AYKu cHQg MSchOKE2C41fb4H5HUNwWVYk PYJ6aGQ8oP1ctIiqcurhbSVb uPkjqdOvbEvnAJobERsoU181 IHRv wFreZMUdtH0kQFLywBBwsUif DL8aOQFobxgbUvRYVqCLPfOT LCBNRUdBTiBNQVJJRTwvdGQ+ PHRk DJQ6lGbhYOahIJVtzF1xBDEg Y6j5TuGbUfP0AZwwL9NxQCZb vcswAy41uT6vHtRhXcE2VZua O2Zv nxB4CPWefXMeBXdyOJF3Z03v t5X8JKKwRVGiXUJ7gHW2nT1m bGlnbjogbGVmdDsgdmVydGlj YWwt OPrqA896NACdpJcjWxBsTeW9 YiC3WQO3S8UuKfo8ZFSxoKmt SA8zdVHcKWrsIi3kzHzvkMrd MC4w ZIDhlnigPXTvdE1iFYBgxXKm xWevUF6aSYAnjqsqs163WtXo HIX2QDGmcDYxG0GtsK9vTtSj MDAw EFEcF6QmcXAzONitZ263QUlz WzU7JPFlblMmA8GmEWMphIcu VzP9a7I5Xc5wXXANWYXyxihr dGQ+ QTYgIPI9oFhtNUqcPAGiyK6i HJWlF6p6LzOmXaH5UXlzI3Zw NYMwcnvnIt15zI4hQlTcAdT0 MGlu V4LypaI8TZCycMGeQXpzZKJ0 P43dc9J5VEBbRERsJFL9dEU5 pV1lrYponjnavWSuxFfwcaXp dGlj PPriDMynC716QIOxuCucVqXS TUFMRTwvdGQ+MIAaYTA2fZpk DBhmTPRsdT4uFXJoD2l4KmCw LjA1 HJjdU9WnYLZwijrvKz87oH4n SyPbAeJ5NCczR2DcfhP5CAKo hERjZVrsJQG4Y70iu4L4WNKe MDAw VUJ1pOI8eM8msTmwvayogMHq gVpmnoFncKodDHosZGclY627 BGDfgUdhViWoMLFgYH0tqHyg dGQ+ HZ10ju50T1ZpDdvaJvp6GOBe XSS2hUQ0dK6pLTGbXIjjr1H8 gVO7B7GgnsFnok4ab2enBUBc ZTog G40hsNYpx5D5BOWxuPM8DWKr fGtxFxFnlQ65Sqz+PGNvbGdy o1RbHeuyk3gbx7wdjMr4ZvRt JSIg osEeoFkiVYN4s2TsJn27U18i IHdpZHRoPSIzMCUiIHZhbGln sf6ulT6vGu5+NBKenUB8iST8 aD0i EnVqKbQ8KFxxA868BsPklDNu Zxnkb9qgk2rxkMd0ScDkPLAg qsPtnCpsFCN7t0IbRw55S3Rl bGdy r6NfGxd3vs41hCXsu4Q1jNO7 Q8VsPKEjaygjtUElkRozBC6c PLDppajdCOWefJ1iNMWiN4i9 OiAw TpY7WKyrJ8DhjjF0LPXycCCp MWVuuWRCjY1crgxfw6iyjuwh IgDtWCIaVEe4OFi7JJBzgChr OiBs CXW8KcZ4WGV7xRKpoF3ulAdn mnsjlO2mDzr+CIn6a3zwvAMl HC2tkRC5HA30KB44lAVdu2K2 bGU9 S0FhPHPgechhhiaduRL5HEZn TRNmzB02Rz5cuNxsOi5mNLZx JDQ9DEPfaOAbE6ZibB6bAnSc MDAw DSFfV0YrmLBtAVfaQ780XBqx ShU6PDLcilJbW1WvIBLpeFjt VeJ4p9T9Dn6PEL15SW28QX14 dGQg l0U0yQU7M9RoKXSliffjfhoe lYS7KLMgMTMlvA17Ga5lwJnb Yu0sPBMhUYL9HCKeaYZvM5Ab bG9y HtQuEJZrPIXpI7DgrHGfBYeb P973EFlmKlO3FCXzaxQnQ2Qq FJKcpCqzDmQ8m4N6Sp2WVk99 PC90 ZM21gDDtl6F3jIP3W3EgDIOh yqjmegkowRR7TWAkOKLwnZ07 Yr9ydFksMi7tPGEqFRI9HQHi bWVz K0QhxV1fYnLsWHSrQOFoF5Yi jJNpQVmeD416UKceJvL3RFDr amJtK8KvNTNevWgsTfL4p0B8 Jz5Q LWzyvon0G8BgVujfkBZ+PC90 RWXrRP88mDXayRNnb8sjbFu0 AcSdPHObSWR4nFfwVImse0Lv ZXIt Y29 (more content not included)... Normal [facility] .Auto Diff 10-11-2020 Auto Kaufman % 6 % Normal 12 [facility] Comment on above: Performed By: #### 7 [id number], [id number] ####[facility] (DEFAULT)[address] [place] [address] 93724 Baso Abs# 0.0 x10 Normal 0.0-0.2 [facility] Comment on above: Performed By: #### 7 [id number], [id number] ####[facility] (DEFAULT)[address] [place] [address] 75229 Basophils/100 WBC (Bld) 0.3 % Normal 0.2-2.0 [facility] Comment on above: Performed By: #### 7 [id number], [id number] ####[facility] (DEFAULT)[address] [place] [address] 68545 Eos Abs# 0.2 x10 Normal 0.0-0.4 [facility] Comment on above: Performed By: #### 7 [id number], [id number], [id number], [id number] ####[facility] (DEFAULT)[address] [place] [address] 88396 Eosinophils/100 WBC (Bld) 3.4 % Normal 0.9-4.0 [facility] Comment on above: Performed By: #### 7 [id number], [id number], [id number], [id number] ####[facility] (DEFAULT)[address] [place] [address] 80925 Lymph Abs# 2.5 x10 Normal 1.3-2.9 [facility] Comment on above: Performed By: #### 7 [id number], [id number] ####[facility] (DEFAULT)[address] [place] [address] 94636 Lymphocytes/100 WBC (Bld) 41 % Normal 14-48 [facility] Comment on above: Performed By: #### 7 [id number], [id number], [id number] ####[facility] (DEFAULT)[address] [place] [address] 90516 Kaufman Abs# 0.4 x10 Normal 0.0-0.8 [facility] Comment on above: Performed By: #### 7 [id number], [id number], [id number] ####[facility] (DEFAULT)[address] [place] [address] 51685 Neut Abs# 3.0 x10 Normal 1.5-9.2 [facility] Comment on above: Performed By: #### 7 [id number], [id number], [id number], [id number] ####[facility] (DEFAULT)[address] [place] [address] 32504 Neutrophils/100 WBC (Bld) 50 % Normal 44-88 [facility] Comment on above: Performed By: #### 7 [id number], [id number] ####[facility] (DEFAULT)[address] [place] [address] CBC w/ Auto Diffon 1 Erythrocyte distribution width (RBC) [Ratio] 13.2 % Normal 11.5-15.0 [facility] Comment on above: Performed By: #### 7 [id number], [id number], [id number], [id number] #### [facility] (DEFAULT) [address] [place] [address] Hematocrit (Bld) [Volume fraction] 36.8 % Normal 33.7-40.4 [facility] Comment on above: Performed By: #### 7 [id number], [id number], [id number], [id number] #### [facility] (DEFAULT) [address] [place] [address] Hemoglobin (Bld) [Mass/Vol] 12.4 g/dL Normal 11.3-15.9 [facility] Comment on above: Performed By: #### 7 [id number], [id number], [id number], [id number] #### [facility] (DEFAULT) [address] [place] [address] Instr WBC 6.1 x10 Invalid Interpretation Code [facility] Comment on above: Performed By: #### 7 [id number], [id number], [id number], [id number] #### [facility] (DEFAULT) [address] [place] [address] Man Diff? Auto Normal [facility] Comment on above: Performed By: #### 7 122995, [id number], [id number], [id number] #### [facility] (DEFAULT) [address] [place] [address] MCH (RBC) [Entitic mass] 29 pg Normal 24-34 [facility] Comment on above: Performed By: #### 7 188204, [id number], [id number], [id number] #### [facility] (DEFAULT) [address] [place] [address] MCHC (RBC) [Mass/Vol] 34 g/dL Normal 26-37 [facility] Comment on above: Performed By: #### 7 615249, [id number], [id number], [id number] #### [facility] (DEFAULT) [address] [place] [address] MCV (RBC) [Entitic vol] 87 fL Normal 81-100 [facility] Comment on above: Performed By: #### 7 675122, [id number], [id number], [id number] #### [facility] (DEFAULT) [address] [place] [address] Platelet 204 x10 Normal 138-427 [facility] Comment on above: Performed By: #### 7 515460, [id number], [id number], [id number] #### [facility] (DEFAULT) [address] [place] [address] Platelet mean volume (Bld) [Entitic vol] 9.6 fL Normal 6.3-10.2 [facility] Comment on above: Performed By: #### 7 128784, [id number], [id number], [id number] #### [facility] (DEFAULT) [address] [place] [address] RBC 4.25 x10 Normal 3.70-5.30 [facility] Comment on above: Performed By: #### 7 878075, [id number], [id number], [id number] #### [facility] (DEFAULT) [address] [place] [address] WBC 6.1 x10 Normal 3.5-10.5 [facility] Comment on above: Performed By: #### 7 255033, [id number], [id number], [id number] #### [facility] (DEFAULT) [address] [place] [address] CMP Standardon 10-11-2020 Albumin [Mass/Vol] 3.9 g/dL Normal 3.5-5.0 [facility] Comment on above: Performed By: #### 7 587293, [id number], [id number], [id number] ####[facility] (DEFAULT)[address] [place] [address] 52168 Albumin/Globulin [Mass ratio] 1.3 {ratio} Low 1.4-2.6 [facility] Comment on above: Performed By: #### 7 158988, [id number], [id number], [id number] ####[facility] (DEFAULT)[address] [place] [address] 06462 Alk Phos 67 IU/L Normal 32-91 [facility] Comment on above: Performed By: #### 7 207537, [id number], [id number], [id number] ####[facility] (DEFAULT)[address] [place] [address] 73339 ALT [Catalytic activity/Vol] 28.0 U/L Normal 14.0-54.0 [facility] Comment on above: Performed By: #### 7 541811, [id number], [id number], [id number] ####[facility] (DEFAULT)[address] [place] [address] 64033 Anion gap [Moles/Vol] 14.0 mmol/L Normal 5.0-19.0 [facility] Comment on above: Performed By: #### 7 200681, [id number], [id number], [id number] ####[facility] (DEFAULT)[address] [place] [address] 36749 AST [Catalytic activity/Vol] 16 U/L Normal 15-41 [facility] Comment on above: Performed By: #### 7 770388, [id number], [id number], [id number] ####[facility] (DEFAULT)[address] [place] [address] 57231 Bili Total 0.3 mg/dL Normal 0.3-1.2 [facility] Comment on above: Performed By: #### 7 731584, [id number], [id number], [id number] ####[facility] (DEFAULT)[address] [place] [address] 43866 Calcium [Mass/Vol] 9.0 mg/dL Normal 8.9-10.3 [facility] Comment on above: Performed By: #### 7 044412, [id number], [id number], [id number] ####[facility] (DEFAULT)[address] [place] [address] 84779 Chloride [Moles/Vol] 109 mmol/L Normal 101-111 [facility] Comment on above: Performed By: #### 7 332645, [id number], 53962701, [id number] ####[facility] (DEFAULT)[address] [place] [address] 37390 CO2 [Moles/Vol] 21 mmol/L Normal 21-32 [facility] Comment on above: Performed By: #### 7 353065, [id number], [id number], [id number] ####[facility] (DEFAULT)[address] [place] [address] 94178 Creatinine [Mass/Vol] 0.90 mg/dL Normal 0.60-1.30 [facility] Comment on above: Performed By: #### 7 349388, [id number], 44203865, [id number] ####[facility] (DEFAULT)[address] [place] [address] 85170 Globulin (S) [Mass/Vol] 3.1 g/dL Normal 1.5-4.3 [facility] Comment on above: Performed By: #### 7 774585, [id number], [id number], [id number] ####[facility] (DEFAULT)[address] [place] [address] 37206 Glucose [Mass/Vol] 95.0 mg/dL Normal 74.0-118.0 [facility] Comment on above: Performed By: #### 7 248689, [id number], 76915026, [id number] ####[facility] (DEFAULT)[address] [place] [address] 61334 Osmolality 282 mOsm/L Invalid Interpretation Code [facility] Comment on above: Performed By: #### 7 846623, [id number], [id number], [id number] ####[facility] (DEFAULT)[address] [place] [address] 22667 Potassium [Moles/Vol] 4.0 mmol/L Normal 3.6-5.1 [facility] Comment on above: Performed By: #### 7 524303, [id number], 59580191, [id number] ####[facility] (DEFAULT)[address] [place] [address] 21076 Protein [Mass/Vol] 7.0 g/dL Normal 6.5-8.1 [facility] Comment on above: Performed By: #### 7 138619, [id number], 97531040, [id number] ####[facility] (DEFAULT)[address] [place] [address] 70807 Sodium [Moles/Vol] 140.0 mmol/L Normal 136.0-144.0 [facility] Comment on above: Performed By: #### 7 832642, [id number], 23734133, [id number] ####[facility] (DEFAULT)[address] [place] [address] 50099 Urea nitrogen [Mass/Vol] 20 mg/dL Normal 8-26 [facility] Comment on above: Performed By: #### 7 644690, [id number], 29229394, [id number] ####[facility] (DEFAULT)[address] [place] [address] 63290 Urea nitrogen/Creatinine [Mass ratio] 22.2 mg/mg High 4.6-16.2 [facility] Comment on above: Performed By: #### 7 633592, [id number], 99132226, [id number] ####[facility] (DEFAULT)[address] [place] [address] 99319 Discharge Instructionson Discharge Instructions [id number]#[id number] TIFF Normal [facility] ED Clinical Summaryon 2020 ED Clinical Summary [facility] - Emergency Department [address] [place] [address] ED Clinical Summary PERSON INFORMATION Name: YANI WOODY Age: 30 Years Sex: FEMALE : 1990 MRN: Acct#: Visit Reason: Pelvic pain; PELVIC AREA PAIN Arrival: 10/11/2020 09:15:57 Discharge: 10/11/2020 12:33:00 LOS: 000 03:18 Check In: 10/11/2020 09:15:57 Checkout:10/11/2020 12:33:00 Address: [address] [place] [address] PCP: Provider, None PROVIDER INFORMATION Provider Role Assigned Unassigned DAVID GALVAN ED PA 10/11/2020 09:24:51 Linn Decker [employer]PERVISOR [employer]ODUCTION [employer]PARTMENT Nurse 10/11/2020 09:28:06 Kristi Case SUPERVISOR [employer]ODUCTION [employer]PART[employer] Nurse 10/11/2020 11:45:12 VITALS INFORMATION Vital Sign [...] test which were negative. She contacted her tobacco roller who indicated he could not see her [...] - pharynx pink and moist. NECK: -Supple (kpjl-xe-veget): non-tender. CARD: -Rate and rhythm: Regular -Edema: No -Calf pain: No RESP: -Respiratory effort and chest excursion with respirations: Normal -Breath sounds equal bilaterally: Clear -Wheezes: No -Rales: No BACK: -Signs of pain with movement: No ABD: -Distended: No -Bruits: No -Bowel sounds: Normal. -Deep palpation: Non-tender, soft, no guarding or r (more content not included)... Normal [facility] ED Note - Physicianon 2020 [...] test which were negative. She contacted her tobacco roller who indicated he could not see her [...] - pharynx pink and moist. NECK: -Supple (vgkn-kw-rsdck): non-tender. CARD: -Rate and rhythm: Regular -Edema: [...] report. I r (more content not included)... [facility] ED Note-Nursingon 10-11-2020 ED Note-Nursing [facility] with c/o [...] light within reach. Will continue to monitor. [facility] ED Patient Summaryon 021 ED Patient Summary [facility] - Emergency Department [address] [place] [address] PATIENT DISCHARGE INSTRUCTIONS Patient Information Name: YANI WOODY Age: 30 Years Date of : 1990 Reason For Visit: Pelvic pain; PELVIC AREA PAIN Arrival Time: 10/11/2020 09:15:57 Primary Care Physician: Provider, None Attending Physician: Linus Neumann MD Comment: Visit Diagnosis: Diagnoses This Visit Ovarian cyst (N83.209) Pelvic congestion syndrome (N94.89) Pelvic pain ([id number] -[id number]) Prescription Information: If you have been given a prescription for narcotics, seek immediate medical attention if you have any difficulty breathing or any sudden status changes such as confusion and sleepiness. If you or anyone you know is experiencing suicidal thoughts, mental health, alcohol and/or drug addiction problems; contact the [facility] 13/11 Crisis Hotline -text 4HWMD lr 045376. If you received any narcotics, sedation, or [...] legal documents With: Address: When: Cordelia Donahue [address] [place] [address] Business (1) Within 2 to 4 days Comments: Follow-up with tobacco roller in the next few days for reevaluation. Return at anytime for reevaluation or if you have worsening symptoms, vaginal bleeding, chest pains, shortness of breath or any other problems. Continue to stay hydrated. Medication Information: The exam and treatment you received today in the [facility] Emergency Department were for an urgent problem and are not intended as complete care. It is important for you to follow up with a doctor, nurse practitioner, or physician?s medical assistant cardiology for ongoing care. If your symptoms become [...] we can reach you if necessary. [facility] Emergency Department has provided you with a complete list of medications post discharge. Please inform your hadoop analyst/provider of your visit and for further instruction [...] Unabl (more content not included)... [facility] Extra Greenon 10-11-2020 Tube Collected Yes Invalid Interpretation Code [facility] Comment on above: Performed By: #### 7 [id number], [id number], [id number], [id number] #### [facility] (DEFAULT) [address] [place] [address] 60858 Lactic Acidon 10-11-2020 Lactic Acid 12.4 mg/dL Normal 4.5-19.8 [facility] Comment on above: Performed By: #### 2 [id number] ####[facility] (DEFAULT)[address] [place] [address] 82448 Test Urine 1on U Preg Negative [facility] Comment on above: Performed By: #### 3 [id number] ####[facility] (DEFAULT)[address] [place] [address] 05941 U Preg Internal Control Pass [facility] Comment on above: Performed By: #### 3 [id number] ####[facility] (DEFAULT)[address] [place] [address] 52102 UA Fiztx7xa 10-11-2020 UA Bacteria Rare [facility] Comment on above: Performed By: #### 2 [id number], [id number] ####[facility] (DEFAULT)[address] [place] [address] 99039 UA RBC 0-2 Normal [facility] Comment on above: Performed By: #### 2 [id number], [id number] ####[facility] (DEFAULT)[address] [place] [address] 20241 UA Squam Epi Few Normal [facility] Comment on above: Performed By: #### 2 [id number], [id number] ####[facility] (DEFAULT)[address] [place] [address] 80250 UA WBC 0-2 Normal [facility] Comment on above: Performed By: #### 2 [id number], [id number] ####[facility] (DEFAULT)[address] [place] [address] 11742 UA w Micro, if Ind Standardo n 10-11-2020 Micro? Indicated Normal [facility] Comment on above: Performed By: #### 2 [id number], [id number] ####[facility] (DEFAULT)[address] [place] [address] 16044 Breakpoint UA Normal [facility] Comment on above: Performed By: #### 2 [id number], [id number] ####[facility] (DEFAULT)[address] [place] [address] 98571 Color (U) Yellow Normal [facility] Comment on above: Performed By: #### 2 [id number], [id number] ####[facility] (DEFAULT)[address] [place] [address] 63000 Glucose (U) [Mass/Vol] Negative Normal [facility] Comment on above: Performed By: #### 2 [id number], [id number] ####[facility] (DEFAULT)[address] [place] [address] 36950 Ketones Ql (U) Negative Normal [facility] Comment on above: Performed By: #### 2 [id number], [id number] ####[facility] (DEFAULT)[address] [place] [address] 24669 UA Bilirubin Negative Normal [facility] Comment on above: Performed By: #### 2 [id number], [id number] ####[facility] (DEFAULT)[address] [place] [address] 16763 UA Blood TRACE Abnormal NEGATIVE [facility] Comment on above: Performed By: #### 2 [id number], [id number] ####[facility] (DEFAULT)[address] [place] [address] 72361 UA Clarity CLEAR Normal CLEAR [facility] Comment on above: Performed By: #### 2 [id number], [id number] ####[facility] (DEFAULT)[address] [place] [address] 75526 UA Leuk Est Negative Normal NEGATIVE [facility] Comment on above: Performed By: #### 2 [id number], [id number] ####[facility] (DEFAULT)[address] [place] [address] 70623 UA Nitrite Negative Normal NEGATIVE [facility] Comment on above: Performed By: #### 2 [id number], [id number] ####[facility] (DEFAULT)[address] [place] [address] 77294 UA pH 6.0 Normal 5-8 [facility] Comment on above: Performed By: #### 2 [id number], [id number] ####[facility] (DEFAULT)[address] [place] [address] UA Protein Negative Normal NEGATIVE [facility] Comment on above: Performed By: #### 2 [id number], [id number] ####[facility] (DEFAULT)[address] [place] [address] 08420 UA Spec Grav 1.025 Normal 1.001-1.035 [facility] Comment on above: Performed By: #### 2 [id number], [id number] ####[facility] (DEFAULT)[address] [place] [address] 92748 UA Urobilinogen 0.2 mg/dL Normal 0.2-1.0 [facility] Comment on above: Performed By: #### 2 [id number], [id number] ####[facility] (DEFAULT)[address] [place] [address] Urine Source Clean Catch Normal [facility] Comment on above: Performed By: #### 2 [id number], [id number] ####[facility] (DEFAULT)[address] [place] [address] 94456 US Pelvis Non-OB Completeon 06-21-2021 US Pelvis [...] 10/11/20 12:29 p Technologist: NATASHA [facility] US Transvaginalon 10-11-2020 US Transvaginal US [...] Dominguez MD 10/11/20 12:29 p Technologist: NATASHA [facility] Video Visit - Telehealtho n 01-28-2020 Video Visit - Telehealth Chief Complaint Medication follow up via [employer] video Subjective Interval History/HPI This visit was conducted via two-way, real-time interactive video communications from my office using [employer] due to the restrictions of the COVID-19 pandemic. No physical exam was conducted other than those areas of the body visible to telecommunications with the patient located at [address] [place] [address], with no one else in attendance. If [...] day(s), # 42 tab(s), Refills(s) 5, Pharmacy: [facility]/pharmacy #[id number], 156, cm, 01/28/20 8:32:00 EDT, Height/Length Dosing, 124, kg, 01/28/20 8:32:00 EDT, Weight Dosing 3. 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) drug therapy) Orders: lamotrigine, 300 mg = 2 tab(s), Oral, Bedtime, # 60 tab(s), Refills(s) 5, Pharmacy: [facility]/pharmacy #[id number], 156, cm, 01/28/20 8:32:00 EDT, Height/Length Dosing, 124, kg, 01/28/20 8:32:00 EDT, Weight Dosing lurasidone, 60 mg = 1 tab(s), Oral, Daily, @supper with food, # 30 tab(s), Refills(s) 5, Pharmacy: [facility]/pharmacy #[id number], 156, cm, 01/28/20 8:32:00 EDT, Height/Length Dosing, 124, kg, 01/28/20 8:32:00 EDT, Weight Dosing metformin, 500 mg = 1 tab(s), Oral, BID, # 60 tab(s), Refills(s) 5, Pharmacy: [facility]/pharmacy #[id number], 156, cm, 01/28/20 8:32:00 EDT, [...] Facility 12-17-2023 13:04-0400 Body height 152.4 cm [facility] 12-17-2023 13:04-0400 Body mass index (BMI) [Ratio] 59.5 kg/m2 [facility] 12-17-2023 13:04-0400 Body temperature 97.5 [degF] [facility] 12-17-2023 13:04-0400 Body weight 138.4 kg [facility] 12-17-2023 13:04-0400 Diastolic blood pressure 68 mm[Hg] [facility] 12-17-2023 13:04-0400 Heart rate 92 /min [facility] 12-17-2023 13:04-0400 Respiratory rate 18 /min [facility] 12-17-2023 13:04-0400 SaO2% (BldA) [Mass fraction] 95 % [facility] 12-17-2023 13:04-0400 Systolic blood pressure 125 mm[Hg] [facility] 06-29-2023 11:10-0500 Body height 154.9 cm Lindseykojo Mcmahon KILN TESTER-STAFF PSYCHOLOGIST Work Phone: [facility] 06-29-2023 11:10-0500 Body mass index (BMI) [Ratio] 56.08 kg/m2 LindseyKitchensurfingdorys KILN TESTER-STAFF PSYCHOLOGIST Work Phone: [facility] 06-29-2023 11:10-0500 Body weight 134.54 kg Lindsey Pinkdingo KILN TESTER-STAFF PSYCHOLOGIST Work Phone: [facility] 06-29-2023 11:10-0500 Diastolic blood pressure 84 mm[Hg] Lindsey Kregel KILN TESTER-STAFF PSYCHOLOGIST Work Phone: [facility] 06-29-2023 11:10-0500 Heart rate 93 /min Lindsey KreCheckr KILN TESTER-STAFF PSYCHOLOGIST Work Phone: [facility] 06-29-2023 11:10-0500 SaO2% (BldA) [Mass fraction] 95 % Lindsey Mcmahon KILN TESTER-STAFF PSYCHOLOGIST Work Phone: [facility] [employer] [facility] 06-29-2023 11:10-0500 Systolic blood pressure 152 mm[Hg] Lindsey Mcmahon KILN TESTER-STAFF PSYCHOLOGIST Work Phone: [facility] [employer] 05-03-2023 13:16-0500 Body mass index (BMI) [Ratio] 54.61 kg/m2 Katerin Doradoer KILN TESTER-STAFF PSYCHOLOGIST [facility] Phone[facility] 05-03-2023 13:16-0500 Body weight 131.09 kg Katerin Doradoer KILN TESTER-STAFF PSYCHOLOGIST [facility] Phone: [facility] 05-03-2023 13:16-0500 Diastolic blood pressure 74 mm[Hg] Katerin Doradoer KILN TESTER-STAFF PSYCHOLOGIST Work Phone: [facility] 05-03-2023 13:16-0500 Heart rate 88 /min Katerin Doradoer KILN TESTER-STAFF PSYCHOLOGIST Work Phone: [facility] 05-03-2023 13:16-0500 Respiratory rate 18 /min Katerin Leijachter KILN TESTER-STAFF PSYCHOLOGIST Work Phone: [facility] 05-03-2023 13:16-0500 SaO2% (BldA) [Mass fraction] 98 % Katerin Doradoer KILN TESTER-STAFF PSYCHOLOGIST Work Phone: [facility] 05-03-2023 13:16-0500 Systolic blood pressure 126 mm[Hg] Katerin Doradoer KILN TESTER-STAFF PSYCHOLOGIST Work Phone: [facility] 02-05-2023 09:45-0400 Body height 154.94 cm Jovita Murcia Other [employer] Other 02-05-2023 09:45-0400 Body mass index (BMI) [Ratio] 57.32 kg/m2 Jovita Murcia Other [employer] Other 02-05-2023 09:45-0400 Body temperature 98 [degF] Jovita Murcia Other [employer] Other 02-05-2023 09:45-0400 Body weight 137.62 kg Jovita Murcia Other [employer] Other 02-05-2023 09:45-0400 Respiratory rate 18 /min Jovita Murcia Other [employer] Other 02-05-2023 09:45-0400 SaO2% (BldA) [Mass fraction] 97 % Jovita Murcia Other [employer] Other 12-22-2022 09:30-0400 Diastolic blood pressure 96 mm[Hg] MD Aline Villalobos Work Phone: [facility] 12-22-2022 09:30-0400 Heart rate 60 /min MD Aline Villalobos Work Phone: [facility] 12-22-2022 09:30-0400 Respiratory rate 16 /min MD Aline Villalobos Work Phone: [facility] 12-22-2022 09:30-0400 SaO2% (BldA) [Mass fraction] 99 % MD Aline Villalobos Work Phone: [facility] 12-22-2022 09:30-0400 Systolic blood pressure 154 mm[Hg] MD Aline Villalobos Work Phone: [facility] 12-22-2022 08:06-0400 Body height 152.4 cm MD Aline Villalobos Work Phone: [facility] 12-22-2022 08:06-0400 Body weight 137.89 kg MD Aline Villalobos Work Phone: [facility] 07-22-2022 11:35-0400 Respiratory rate 18 /min Inge Leung DO Work Phone: [employer] 07-22-2022 08:00-0400 Body temperature 99 [degF] Inge Leung DO Work Phone: [employer] 07-22-2022 08:00-0400 Diastolic blood pressure 63 mm[Hg] Inge Leung DO Work Phone: [employer] 07-22-2022 08:00-0400 Heart rate 78 /min Inge Leung DO Work Phone: [employer] 07-22-2022 08:00-0400 SaO2% (BldA) [Mass fraction] 99 % Inge Leung DO Work Phone: [employer] 07-22-2022 08:00-0400 Systolic blood pressure 137 mm[Hg] Inge Leung DO Work Phone: [employer] 07-18-2022 17:35-0400 Body height 154.94 cm Alesha Cortez Other [employer] Other 07-18-2022 17:35-0400 Body mass index (BMI) [Ratio] 62.16 kg/m2 Alesha Cortez Other [employer] Other 07-18-2022 17:35-0400 Body temperature 96 [degF] Alesha Cortez Other [employer] Other 07-18-2022 17:35-0400 Body weight 149.23 kg Alesha Cortez Other [employer] Other 07-18-2022 17:35-0400 Respiratory rate 18 /min Alesha Cortez Other [employer] Other 07-18-2022 17:35-0400 SaO2% (BldA) [Mass fraction] 97 % Alesha Cortez Other [employer] Other 07-15-2022 17:16-0400 Diastolic blood pressure 83 mm[Hg] Inge Piazza DO Work Phone: [employer] 07-15-2022 17:16-0400 Heart rate 97 /min Inge Piazza DO Work Phone: [employer] 07-15-2022 17:16-0400 Respiratory rate 16 /min Inge Padillaazza DO Work Phone: [employer] 07-15-2022 17:16-0400 Systolic blood pressure 142 mm[Hg] Inge Piazza DO Work Phone: [employer] 07-15-2022 15:44-0400 Body temperature 98.49 [degF] Inge Piazza DO Work Phone: [employer] 03-21-2022 10:30-0500 Body height 154.94 cm [place] Other [employer] Other 03-08-2022 02:06-0500 Body weight 141.0696 kg LILIA RUIZ [facility] Comment on above: Performed By: #### DAPHNE TOBIAS #### [facility] [address] [place] [address] Dr. Valeria Farris Encounters Encounter Date Encounter Type Care Provider Facility Start: 01-15-2024 End: 01-15-2024 ambulatory CLAUDIA DUFF [facility] Start: 01-15-2024 End: 01-15-2024 ambulatory NOAH NICHOLAS Not Available Start: 01-03-2024 End: 01-03-2024 ambulatory NOAH NICHOLAS Not Available Start: 12-31-2023 End: 12-31-[address] [facility] Start: 12-29-2023 End: 12-29-2023 Emergency department patient visit CHAS BALDERAS [facility] Start: 12-17-2023 End: 12-17-2023 ambulatory [facility] Work Phone: Start: 12-17-2023 End: 12-17-2023 Patient encounter procedure [facility] Work Phone: Start: 12-17-2023 End: 12-17-2023 ambulatory NOAH NICHOLAS Not Available Start: 12-06-2023 End: 12-06-2023 ambulatory [facility] Start: 11-29-2023 End: 11-29-2023 ambulatory NOAH NICHOLAS Not Available Start: 11-12-2023 End: 11-12-2023 ambulatory CHARMAINE MARIKA Not Available Start: 11-08-2023 End: 11-08-2023 ambulatory [facility] Start: 10-29-2023 End: 10-29-2023 ambulatory NOAH NICHOLAS Not Available Start: 10-11-2023 End: 10-11-2023 ambulatory NOAH NICHOLAS Not Available Start: 10-09-2023 End: 10-09-2023 ambulatory [facility] Start: 09-11-2023 End: 09-11-2023 ambulatory NOAH NICHOLAS Not Available Start: 09-10-2023 End: 09-11-2023 Emergency department patient visit MANUEL HERBERT [facility] Start: 08-28-2023 End: 08-28-2023 Emergency department patient visit CHAS SHERRIE [facility] Start: 08-24-2023 End: 08-24-2023 ambulatory CHAS JANNIEYAZMIN Not Available Start: 08-14-2023 End: 08-14-2023 ambulatory NOAH NICHOLAS Not Available Start: 07-19-2023 End: 07-19-2023 ambulatory CHARMAINE MARIKA Not Available Start: 07-02-2023 Telephone encounter Lindsey philip KILN TESTER-STAFF PSYCHOLOGIST Work Phone: [facility] Comment on above: Sleep Lab (PSG) Start: 06-29-2023 End: 06-29-2023 ambulatory [facility] Start: 06-29-2023 End: 06-29-2023 Office outpatient new 45 minutes [facility] KILN TESTER-STAFF PSYCHOLOGIST Work Phone: [facility] Comment on above: MOLINA (obstructive sle ep apnea) (Primary Dx); Morning headache; Memory loss; Fatigue, unspecified type; Snoring Start: 06-24-2023 Refill Katerin grewal KILN TESTER-STAFF PSYCHOLOGIST Work Phone: [facility] Start: 06-14-2023 End: 06-14-2023 ambulatory RAZIA MULLER [facility] Start: 06-06-2023 Refill Katerin grewal KILN TESTER-STAFF PSYCHOLOGIST Work Phone: [facility] Start: 06-05-2023 Orders Only Sadaf Louis [facility] Comment on above: Low back pain, unspe cified back pain laterality, unspecified chronicity, unspecified whether sciatica present (Primary Dx) Start: 05-29-2023 Telephone encounter Orders Sup port User Transcribe [facility] Comment on above: Sleep Lab Start: 05-22-2023 End: 05-22-2023 ambulatory CHAS BALDERAS Not Available Start: 05-16-2023 End: 05-17-2023 Emergency department patient visit LINA HUGHES [facility] Start: 05-15-2023 End: 05-15-2023 ambulatory NOAH PETERSON Not Available Start: 05-03-2023 End: 05-03-2023 ambulatory [facility] Start: 05-03-2023 End: 05-03-2023 Office outpatient visit 15 minutes Katerin Haynes KILN TESTER-STAFF PSYCHOLOGIST Work Phone: [facility] Comment on above: Acute non-recurrent maxillary sinusitis (Primary Dx) Start: 04-19-2023 End: 04-19-2023 ambulatory CHARMAINE HAIRSTON Not Available Start: 02-05-2023 End: 02-05-2023 ambulatory Jovita Murcia Other [employer] Other Start: 02-05-2023 Office outpatient vi sit 15 minutes Jovita Murcia [facility] Start: 12-22-2022 End: 12-22-2022 ambulatory Aline Villalobos Facility:[facility] Start: 12-22-2022 End: 12-22-2022 ambulatory MD Aline Villalobos Work Phone: [facility] Work Phone: Start: 12-22-2022 End: 12-22-2022 Patient encounter procedure MD Aline Villalobos Work Phone: [facility] Work Phone: Start: 12-20-2022 End: 12-20-2022 ambulatory Aline Villalobos Facility:[facility] Start: 12-20-2022 End: 12-20-2022 ambulatory MD Aline Villalobos Work Phone: [facility] Work Phone: Start: 12-20-2022 End: 12-20-2022 Patient encounter procedure MD Aline Villalobos Work Phone: [facility] Work Phone: Start: 09-04-2022 ambulatory RAYSA LINN [...] 07-18-2022 End: 07-18-2022 ambulatory Alesha Cortez Other [employer] Other Start: 07-18-2022 Office outpatient vi sit [...] 03-21-2022 End: 03-21-2022 ambulatory [place] Other [employer] Other Start: 03-21-2022 Office outpatient ne w 30 minutes [place] [facility] Start: 03-19-2022 End: 03-19-2022 ambulatory LILIA RUIZ Facility:[facility] Start: 03-15-2022 End: 03-16-[address] NOAH PETERSON Facility:[facility] Start: 03-03-2022 End: 03-04-[address] NOAH PETERSON Facility:[facility] Start: 02-27-2022 Blood pressure taking Jovita groves Other [employer] Other Start: 01-09-2022 End: 01-10-[address] [...] abnormal cervical Papanicolaou smear Jovita Murcia Other [employer] Other Start: 01-30-2018 End: 01-31-2018 Patient encounter DEFAULT PHYSICIAN Facility:[facility] Procedures Date Procedure Procedure Detail Performing Clinician Start: 12-22-2022 Investigation of transfusion reaction MD Aline Villalobos Work Phone: Start: 07-22-2022 Glucose blood reagent strip Hitesh A Thompson DO Work Phone: Start: 07-21-2022 Glucose blood reagent strip Hitesh A Thompson DO Work Phone: Start: 07-21-2022 Glucose blood reagent strip Hitesh A Jewel DO Work Phone: Start: 07-21-2022 Glucose blood reagent strip Hitesh A Jewel DO Work Phone: Start: 07-21-2022 Blood count complete auto&auto difrntl wbc Nash E Eleazar DO Work Phone: Start: 07-20-2022 Glucose blood reagent strip Hitesh A Thompson DO Work Phone: Start: 07-20-2022 Cul prsmptv [...] in Cervix by Cyto stain Katerin Haynes APRN-STAFF PSYCHOLOGIST Work Phone: Start: 12-28-2021 Diabetes mellitus screening Jovita Murcia Other Start: 11-30-2021 Adult depression scr eening assessment Katerin Haynes APRN-STAFF PSYCHOLOGIST Work Phone: End: 04-13-2021 screening Jovita Murcia Other End: 07-27-2021 screening Jovita Murcia Other Counseling Jovita Murcia Other Depression screening Jovita Murcia Other visit Jovita Hardeep nicolas Other Plan of Treatment Date Care Activity Detail Author Start: 12-21-2029 DTaP,Tdap and Td Vaccines (7 - Td or Tdap) DTaP,Tdap and Td Vaccines (7 - Td or Tdap) [facility] Start: 12-21-2029 DTaP/Tdap/Td vaccine (7 - Td or Tdap) DTaP/Tdap/Td vaccine (7 - Td or Tdap) [facility] Start: 05-29-2025 Screening for malign ant neoplasm of cervix Pap Smear [facility] Start: 06-28-2024 Adult BMI Screening Adult BMI Screen ing [facility] Start: 06-28-2024 Tobacco Screening Tobacco Screening [facility] Start: 06-13-2024 Adult BMI Screening Adult BMI Screen ing [facility] Start: 05-16-2024 Adult BMI Screening Adult BMI Screen ing [facility] Start: 05-16-2024 Tobacco Screening Tobacco Screening [facility] Start: 05-03-2024 Adult BMI Follow Up Plan Adult BMI Follow Up Plan [facility] Start: 05-03-2024 Adult BMI Screening Adult BMI Screen ing [facility] Start: 05-03-2024 Tobacco Screening Tobacco Screening [facility] Start: 03-12-2024 Adult BMI Follow Up Plan Adult BMI Follow Up Plan [facility] Start: 01-09-2024 End: 01-09-2024 Patient encounter procedure 01/09/2024 9:00 AM EDT Office Visit [facility] [address] [place] [address] Lindsey Mcmahon, KILN TESTER-STAFF PSYCHOLOGIST [address] [address] [facility] Start: 10-23-2023 End: 10-23-2023 Clinical Support 10/23/2023 8:00 PM EDT Clinical Support [facility] [address] [place] [address] [facility] Start: 07-11-2023 End: 07-11-2023 Patient encounter procedure 07/11/2023 10:00 AM EDT Office Visit [facility] [address] [place] [address] Lindsey Mcmahon, KILN TESTER-STAFF PSYCHOLOGIST [address] [address] [facility] Start: 06-25-2023 End: 06-25-2023 Patient encounter procedure 06/25/2023 10:30 AM EST Office Visit [facility] [address] [place] [address] Terese Valladares KILN TESTER-STAFF PSYCHOLOGIST [address] [address] [facility] Start: 06-14-2023 End: 06-14-2023 Patient encounter procedure 06/14/2023 8:15 AM EST Appointment [facility] [address] [place] [address] [facility] Start: 06-05-2023 End: [...] Office Visit [facility] [address] [place] [phone] Katerin Haynes, KILN TESTER-STAFF PSYCHOLOGIST [address] [place], [place] [phone] [facility] Start: 05-28-2023 End: 05-28-2023 Patient encounter procedure 05/28/2023 9:30 AM EST Office Visit [facility] [address] [place] [phone] Terese Valladares, KILN TESTER-STAFF PSYCHOLOGIST [address] [address] [facility] Start: 05-18-2023 Hemoglobin A1c measurement A1C test (Diabetic or Prediabetic) [facility] Start: 12-22-2022 COVID-19 Vaccine ( season) COVID-19 Vaccine ( season) [facility] Start: 12-22-2022 Influenza vaccination Influenza Vacc ine [facility] Start: 12-22-2022 Cerebrospinal fluid culture [facility] Start: 12-22-2022 End: 12-22-2022 [facility] Start: 11-30-2022 Depression Screening Depression Scre ening [facility] Start: 11-21-2022 Influenza vaccination Flu vacc ine (Season Ended) [facility] Start: 07-20-2022 End: 07-20-2022 Patient encounter procedure 07/20/2022 Routine Perinatology [facility] Start: 07-13-2022 End: 07-13-2022 Patient encounter procedure 07/13/2022 Routine Perinatology [facility] Start: 07-06-2022 End: 07-06-2022 Patient encounter procedure 07/06/2022 Routine Perinatology [facility] Start: 02-05-2022 Screening for malign ant neoplasm of cervix [facility] [place] [employer] Start: 11-21-2021 Influenza vaccination Flu vaccine (# 1) [facility] Start: 01-21-2021 COVID-19 Vaccine (2 - Booster for Hipolito series) COVID-19 Vaccine (2 - Booster for Hipolito series) [facility] [place] [employer] Start: 02-05-2013 Screening for malign ant neoplasm of cervix Pap smear [facility] Start: 02-05-2010 Hepatitis C screening Hepatitis C sc reen [facility] [place] [employer] Start: 02-05-2007 [facility] screening [facility] Start: 2004 Depression Screen Depression Screen [facility] [employer] Start: 02-05-2002 Lipid panel Lipids [facility] [place] [employer] Start: 02-05-1998 Pneumococcal 0-64 ye ars Vaccine (1 - PCV) Pneumococcal 0-64 years Vaccine (1 - PCV) [facility] Start: 02-05-1993 Varicella vaccine (1 of 2 - 2-dose childhood series) Varicella vaccine (1 of 2 - 2-dose childhood series) [facility] Bacteria identified in Unspecified specimen by Aerobe culture [facility] Bacteria identified in Unspecified specimen by Anaerobe culture [facility] End: 07-15-2022 COVID-19, Rapid COVID-19, Rapid Microbiology STAT One Time for 1 Occurrences starting 07/15/2022 until 07/15/2022 [facility] Comment on above: One Time for 1 Occur rences starting 07/15/2022 until 07/15/2022 CT CHEST PULMONARY EMBOLISM W CONTRAST CT CHEST PULMONARY EMBOLISM W CONTRAST Imaging STAT 07/15/2022 5:48 PM EDT [facility] [employer] Phone: Culture, Strep B Scr een, Vaginal/Rectal Culture, Strep B Screen, Vaginal/Rectal Microbiology [employer] 07/20/2022 6:56 PM EDT [employer] Phone: EKG 12 Lead EKG 12 Lead ECG Routine 07/15/2022 4:23 AM EDT [employer] Phone: Glucose [Mass/volume ] in Serum or Plasma POCT glucose Point of Care Testing Routine 4X Daily (AC & HS) until discontinued starting 07/20/2022 [employer] Phone: Comment on above: 4X Daily (AC & HS) u ntil discontinued starting 07/20/2022 End: 07-15-2022 Hepatitis C Antibody [employer] Phone: Comment on above: One Time for 1 Occur rences starting 07/15/2022 until 07/15/2022 Meningitis+Encephali tis pathogens DNA and RNA panel - Cerebral spinal fluid by SARANYA with non-probe detection [facility] Microscopic observat ion [Identifier] in Unspecified specimen by Gram stain [facility] Nonrebreather mask oxygen Nonrebreather mask oxygen Respiratory Care Routine As directed - RT (PRN) until discontinued starting 07/15/2022 [employer] Phone: Comment on above: As directed - RT (AZ N) until discontinued starting 07/15/2022 Oxygen therapy [[place] [facility] [place] [place]] Initiate Oxygen Therapy Protocol Respiratory Care Routine Daily until discontinued starting 07/20/2022 [employer] Work Phone: Comment on above: Daily until disconti nued starting 07/20/2022 Patient Education [facility] Lumb ar Puncture Discharge Instructions [facility] Work Phone: PROFILE I PROF ILE I Lab [employer] 07/15/2022 4:12 PM EDT [employer] Phone: End: 06-28-2024 PSG Diagnostic [facility] Routine MOLINA (obstructive sleep apnea) 1 Occurrences starting 06/29/2023 until 06/28/2024 [facility] Work Phone: Comment on above: 1 Occurrences starti ng 06/29/2023 until 06/28/2024 End: 07-15-2022 RAPID INFLUENZA A/B ANTIGENS RAPID INFLUENZA A/B ANTIGENS Microbiology STAT One Time for 1 Occurrences starting 07/15/2022 until 07/15/2022 [employer] Phone: Comment on above: One Time for 1 Occur rences starting 07/15/2022 until 07/15/2022 End: 07-20-2022 Specimen hold [employer] Work Phone: Comment on above: Once for 1 Occurrenc es starting 07/20/2022 until 07/20/2022 End: 07-20-2022 Specimen to Pathology Specimen to Pathology Lab Routine One Time for 1 Occurrences starting 07/20/2022 until 07/20/2022 [employer] Phone: Comment on above: One Time for 1 Occur rences starting 07/20/2022 until 07/20/2022 Spirometry panel Incentive linda metry Respiratory Care Routine Every 2hr while awake until discontinued starting 07/20/2022 [employer] Phone: Comment on above: Every 2hr while awak e until discontinued starting 07/20/2022 End: 07-15-2022 Troponin I.cardiac [Mass/volume] in Serum or Plasma Troponin Lab STAT One Time for 1 Occurrences starting 07/15/2022 until 07/15/2022 [employer] Work Phone: Comment on above: One Time for 1 Occur rences starting 07/15/2022 until 07/15/2022 Immunizations Immunization Date Immunization Notes Care Provider Radha bowen 04-21-2014 influenza virus vaccine, unspecified formulation Katerin ALEXIS Work Phone: [employer] NEGATED: Highlighted row has not occurred!07-22-2022 tetanus toxoid, reduced diphtheria toxoid, and acellular pertussis vaccine, adsorbed Inge Mojicaza DO Work Phone: [facility] Payers Date Payer Category Payer Unknown 2022 Unknown [id number] 2022 Medicaid [id number] 2022 Medicaid [place] [id number] 2022-Present [address] [place] [address] 1.2.840.395567.1.13.424.2. 7.3.222690.315 1992 Unknown [id number] 2.16.840.1.259360.3.579.2. 647 1992 Unknown [id number] 2.16.840.1.113816.3.579.2. 593 1992 Unknown [id number] 2.16.840.1.593185.3.579.2. 593 1992 Unknown [id number] 2.16.840.1.165789.3.579.2. 593 1992 Unknown [id number] 2.16.840.1.100657.3.579.2. 593 1992 Unknown [id number] 2.16.840.1.381807.3.579.2. 593 1992 Unknown [id number] 2.16.840.1.550576.3.579.2. 593 1992 Unknown [id number] 2.16.840.1.277181.3.579.2. 593 1992 Unknown [id number] 2.16.840.1.145493.3.579.2. 593 1992 Unknown [id number] 2.16.840.1.649158.3.579.2. 593 1992 Unknown [id number] 2.16.840.1.625517.3.579.2. 593 1992 Unknown [id number] 2.16.840.1.297563.3.579.2. 593 1992 Unknown [id number] 2.16.840.1.051678.3.579.2. 593 1992 Unknown [id number] 2.16.840.1.298504.3.579.2. 593 1992 Unknown [id number] 2.16.840.1.678704.3.579.2. 593 1992 Unknown [id number] 2.16.840.1.161832.3.579.2. 593 1992 Unknown [id number] 2.16.840.1.519681.3.579.2. 593 1992 Unknown [id number] 2.16.840.1.740855.3.579.2. 593 1992 Unknown [id number] 2.16.840.1.836445.3.579.2. 593 1992 Unknown [id number] 2.16.840.1.493129.3.579.2. 593 1992 Unknown [id number] 2.16.840.1.469074.3.579.2. 593 1992 Unknown [id number] 2.16.840.1.264342.3.579.2. 593 1992 Unknown [id number] 2.16.840.1.472815.3.579.2. 593 1992 Unknown [id number] 2.16.840.1.208715.3.579.2. 593 1992 Unknown [id number] 2.16.840.1.094587.3.579.2. 593 1992 Unknown [id number] 2.16.840.1.979646.3.579.2. 593 1992 Unknown [id number] 2.16.840.1.708961.3.579.2. 593 1992 Unknown [id number] 2.16.840.1.779083.3.579.2. 593 1992 Unknown [id number] 2.16.840.1.403714.3.579.2. 593 1992 Unknown [id number] 2.16.840.1.520534.3.579.2. 593 1992 Unknown [id number] 2.16.840.1.487236.3.579.2. 593 1992 Unknown [id number] 2.16.840.1.221160.3.579.2. 593 1992 Unknown [id number] 2.16.840.1.655124.3.579.2. 593 1992 Unknown [id number] 2.16.840.1.731862.3.579.2. 593 1992 Unknown [id number] 2.16.840.1.774002.3.579.2. 593 1992 Unknown [id number] 2.16.840.1.023760.3.579.2. 593 1992 Unknown [id number] 2.16.840.1.549432.3.579.2. 593 1992 Unknown [id number] 2.16.840.1.159423.3.579.2. 593 1992 Unknown [id number] 2.16.840.1.676961.3.579.2. 593 1992 Unknown [id number] 2.16.840.1.162607.3.579.2. 593 1992 Unknown [id number] 2.16.840.1.535551.3.579.2. 593 1992 Unknown [id number] 2.16.840.1.914943.3.579.2. 1286 1992 Unknown [id number] 2.16.840.1.137392.3.579.2. 1286 1992 Unknown [id number] 2.16.840.1.991932.3.579.2. 175 1992 Unknown [id number] 2.16.840.1.649940.3.579.2. 175 1992 Unknown [id number] 2.16.840.1.322893.3.579.2. 175 1992 Unknown [id number] 2.16.840.1.962482.3.579.2. 175 1992 Unknown [id number] 2.16.840.1.348965.3.579.2. 1259 1992 Unknown [id number] 2.16.840.1.079210.3.579.2. 9 1992 Unknown [id number] 2.16.840.1.781959.3.579.2. 9 1992 Unknown [id number] 2.16.840.1.698217.3.579.2. 1259 1992 Unknown [id number] 2.16.840.1.857789.3.579.2. 1259 1992 Unknown [id number] 2.16.840.1.485121.3.579.2. 9 1992 Unknown [id number] 2.16.840.1.822062.3.579.2. 9 1992 Unknown [id number] 2.16.840.1.571327.3.579.2. 1259 1992 Unknown [id number] 2.16.840.1.940849.3.579.2. 1259 1992 Unknown [id number] 2.16.840.1.457787.3.579.2. 9 1992 Unknown [id number] 2.16.840.1.095409.3.579.2. 1259 1992 Unknown [id number] 2.16.840.1.281001.3.579.2. 1259 1992 Unknown [id number] 2.16.840.1.318085.3.579.2. 1259 1992 Unknown [id number] 2.16.840.1.524941.3.579.2. 1259 1992 Unknown [id number] 2.16.840.1.408908.3.579.2. 1286 1992 Unknown [id number] 2.16.840.1.950004.3.579.2. 1286 1992 Unknown [id number] 2.16.840.1.253922.3.579.2. 1286 1992 Unknown [id number] 2.16.840.1.938536.3.579.2. 6 1992 Unknown [id number] 2.16.840.1.121698.3.579.2. 1286 1992 Unknown [id number] 2.16.840.1.868439.3.579.2. 1286 1992 Unknown [id number] 2.16.840.1.995930.3.579.2. 1286 1992 Unknown [id number] 2.16.840.1.711450.3.579.2. 1286 1959 Medicaid [id number] 1.2.840.475939.1.13.239.2. 7.3.708995.315 1959 Private Health Insurance [id number] 1.2.840.494084.1.13.239.2. 7.3.719629.315 1959 Self-pay 1959 Unknown [id number] 1959 Worker's Compensation [id number] 2.16.840.1.722731.19 Medicaid [employer] [id number] [facility] [id number] Private Health Insurance [id number] 2.16.840.1.492937.19 Private Health Insurance [facility] [id number] Unknown [id number] 2.16.840.1.892428.19 Unknown [id number] 2.16.840.1.408963.3.579.2. 593 Unknown [id number] 2.16.840.1.770031.3.579.2. 531 Unknown [id number] 2.16.840.1.623573.3.579.2. 531 Social History Date Type Detail Facility Unknown if ever smoked [employer] Other Start: 06-03-2020 End: 05-03-2023 Sex Assigned At [facility] Other Start: 06-22-2022 End: 06-29-2023 Tobacco smoking status NHIS Ex-smoker [facility] Start: 05-25-2020 End: 12-22-2022 History of tobacco use Current smoker [employer] Phone: End: 11-20-2017 History of tobacco use Cigarette Smoker [employer] Phone: Start: 06-22-2022 End: 06-29-2023 Tobacco use and exposure Smokeless tobacco non-user [employer] Phone: Start: 06-29-2022 End: 06-29-2023 Alcohol intake Ex-drinker (finding) [employer] Phone: Start: 06-22-2022 Tobacco Comment Quit in 2019 06/22/2022 [employer] Phone: Start: 11-20-2021 [employer] Phone: Start: 1990 Sex Assigned At Female [facility] Start: 07-10-2022 End: 07-20-2022 Exposure to SARS-CoV-2 (event) Not sure [employer] Phone: Start: 06-03-2020 End: 11-16-2022 Cigarettes smoked current (pack per day) - Reported 0.5 [facility] Adolescent depressio n screening assessment 2 [facility] Start: 11-30-2021 Education 17 [facility] tem Start: 11-16-2022 Tobacco Comment quit in July [facility] tem Start: 05-16-2022 Gender identity Identifies as female gender (finding) [facility] Start: 05-25-2022 Sexual orientation Heterosexual (finding) [facility] Medical Equipment Procedure Code Equipment Code Equipment Origin al Text Equipment Identifier Dates BD ULTRA-FINE PE N NEEDLES 29G X 12.7MM MISC [id number] Start: 04-03-2022 ONETOUCH ULTRA strip [id number] Star t: 06-11-2022 DROPLET PEN NEED LES 29G X 12MM MISC [id number] Start: 06-30-2022 Clinical Notes 01-28-2020 to 07-02-2023 [...] in supine position. documented in this encounter [facility] 07-02-2023 Telephone encount er Note 3 order received Scheduled PSG at [facility] on 10/23/23 Mychart confirmation [place] [employer] PSG order & 3/6 Salome notes in Epic With TCO2 monitoring. Please obtain baseline in supine position. [facility] 06-29-2023 History of Presen t illness [...] you wake up? 6-8 AM Number of jjpksu-wv-udl-night awakenings per night? 3-4 Cause of awakenings [...] stop the activity if sleepiness occurs (pull worker at the next safe opportunity if driving). [...] sleep). CC: MD Lindsey CAMEJO [facility] Office: [phone] 11:18 AM on 06/29/2023 This note is dictated with the use of M*Modal.Please note that this dictation was completed with computer voice recognition software. Quite often unanticipated grammatical, syntax, homophones, and other interpretive errors are inadvertently transcribed by the computer software. Please disregard these errors. Please excuse any errors that have escaped final proofreading. VANESA Mendez 06/29/23 1125 documented in this encounter [facility] 06-29-2023 Instructions VANESA Mendez - 06/29/2023 11:00 AM EST If you re looking for general health and wellness resources, please visit [email or web address]. documented in this encounter [facility] 06-29-2023 Evaluation note Diagnosis MOLINA (obstructive sleep apnea)- Primary Obstructive sleep apnea (adult) (pediatric) Morning headache Memory loss Fatigue, unspecified type Snoring Other dyspnea and respiratory abnormality documented in this encounter [facility]2024 Miscellaneous Notes* Telephone Encounter - Ernestina Simpson - 05/29/2023 10:23 AM EST Pt called to schedule a sleep study or appointment with collin Dawn advised we have nothing as of now and either order is in her chart to schedule with gave her the number to sleep medicine in [place] [facility] Telephone encounter Note* Telephone Encounter - Ernestina Simpson - 05/29/2023 10:23 AM EST Pt called to schedule a sleep study or appointment with collin Dawn advised we have nothing as of now and either order is in her chart to schedule with gave her the number to sleep medicine in [place] [facility]01-11-2024 History of Present illness Narrative* VANESA Frank - 05/03/2023 1:15 PM EST Images from the original note were not included. [address] [facility] [address] SUBJECTIVE: Patient ID: Yani Stevens is a [...] VANESA Frank 05/03/23 1330 [facility] Evaluation note* Encounter Date Diagnosis Assessment [...] not specified, unspecified location (ICD-10 - J01.90) [facility] Other 04-01-2023 History of Present illness Narrative* [...] patient Attending Physician: Dr. Fish Estrada MD Manager Deli Resident 07/22/2022, 12:40 AM Attending Physician Statement [...] patient Attending Physician: Dr. Betina Bush, DO Manager Deli Resident 07/21/2022, 3:02 AM Attending Physician Statement [...] 07/21/2022 10:00 AM documented [facility]ENTERJ[facility]! Phone: 1(272) 141-888803-30-2023 Evaluation note* Diagnosis RLTCS w/ IUD 07/20/22 [...] affecting documented in this encounter [facility] [employer] Work Phone: 1(746) 642-153103-28-2023 Evaluation note* Encounter Date Diagnosis Assessment Notes [...] other viral communicable diseases (ICD-10 - Z20.828) [facility] Other 11-29-2022 Evaluation note* Encounter Date Diagnosis [...] off of work. We will apply for [facility] approval for therapy. [facility] Other 06-21-2021 NoteEducation Materials Obstetrics and Gynecology [...] Follow these instructions at home: ? Take siwi-boc-jricork and prescription medicines only as told by [...] period is much (more content not included)...[facility] 01-28-2020 NoteOphthalmology Basics of Medication [...] caregiver questions about your prescriptions and any nigk-dum-rznnepy medications, vitamins, herbal or dietary supplements that [...] your caregiver or pharm (more content not included)...[facility] Chief complaint+Reason for visit Narrative* Chief Complaint Congestion, fever Reason for Visit Contact with and (grimm spected) exposure to covid-19 [facility] Work Phone: Evaluation note* Diagnosis 37 [...] condition or complication documented in this encounter [facility] [employer] [facility] Work Phone: evaluation noteNo assessment information available [facility] Work Phone: Evaluation note* Diagnosis Acute non-recurrent maxillary sinusitis- Primary documented in this encounter [facility] SystemEvaluation note* Diagnosis Low back pain, unspecified back pain laterality, unspecified chronicity, unspecified whether sciatica present- Primary documented in this encounter [facility] SystemEvaluation note* Diagnosis Onset Date Resolution Status Contact with and (suspected) exposure to covid-19 noneactive [facility] Work Phone: History general Narrative - Reported* Type Description Date Medical History Depression Medical History Bipolar disorder Medical History Hypertension Medical History Hypothyroidism Surgical History cholecystectomy Surgical History wisdom teeth extract Surgical History lipoma removed Surgical History left knee scope x 2 Surgical History hemorrhoidectomy Hospitalization History see above surgical histo ry [facility] [employer] [facility] Other Hospital Discharge instructions* Attachments The following attachments cannot be sent through Care Everywhere. * Section: Post-op (Pakistani) * Preeclampsia: : General Info (Pakistani) * Depression: (Pakistani) documented in this encounter[facility] [employer] Work Phone: Instructions* Attachments The following attachments cannot be sent through Care Everywhere. * Sinusitis in adults (Pakistani) documented in this encounterProMontgomery Financial SystemInstructionsNot on file documented in this encounterProMontgomery Financial SystemInstructionsNot on file documented in this encounterProMedica Health SystemInstructionsNot on file documented in this encounterProTri[facility] SystemInstructionsNot on file documented in this encounterProTrihealth [facility] System Summary Purpose Family History [...] sleep apnea) Procedures PSG Diagnostic Lindsey Mcmahon, KILN TESTER-STAFF PSYCHOLOGIST [address] [facility], [address] [place] [address] Referral ID Status Reason Start Date Expiration Date V isits Requested Visits Authorized [id number] Pending Review 06/29/2023 06/28/2024 1 1 Additional Source Comments INFORMATION SOURCE (unrecogn ized section and content) DATE CREATED AUTHOR 02/27/2018 [facility] DATE CREATED AUTHOR AUTHOR'S ORGANIZ ATION 09/15/2020 [facility] DATE CREATED AUTHOR AUTHOR'S ORGANIZ ATION 10/17/2020 [facility] DATE CREATED AUTHOR AUTHOR'S ORGANIZ ATION 08/25/2022 [facility] DATE CREATED AUTHOR AUTHOR'S ORGANIZ ATION 01/01/2023 [facility] DATE CREATED AUTHOR AUTHOR'S ORGANIZ ATION 06/30/2023 [facility] DATE CREATED AUTHOR AUTHOR'S ORGANIZ ATION 01/05/2024 [facility] DATE CREATED AUTHOR AUTHOR'S ORGANIZ ATION 01/17/2024 [facility] EPIC DATE CREATED AUTHOR AUTHOR'S ORGANIZ ATION 01/18/2024 [facility] REASON FOR VISIT (unrecogniz ed section and content) Specialty Diagnoses / Procedures Referred By Contac t Referred To Contact Diagnoses 36 weeks gestation of Hitesh Holloway DO [address] [place] [address] [facility] [address] [place] [address] Referral ID Status Reason Start Date Expiration Date Visits Re quested Visits Authorized [id number] 1 1 Reason Comments Nasal Congestion Dizziness Reason Onset Date Comments Sleep Lab 05/29/2023 Reason Comments Med Refill Reason Comments New Patient Sleep ConsultNo prio r sleep studyNot on PAP Specialty Diagnoses / Procedures Referred By Ismael t Referred To Contact Pulmonary Medicine Diagnoses Morning headache Memory loss Razia Muller, KILN TESTER-STAFF PSYCHOLOGIST [address] [place] [address] [facility] [address] [place] [address] Referral ID Status Reason Start Date Expiration Date Visits Requested Visits Authorized [id number] Pending Review Specialty Services Required 06/12/2023 06/11/2024 [...] Elisa Mckeon RN)1301 (Given - Provider: Lakesha Loear RN)1854 (Given - Provider: Lakesha Loera RN) [...] (Given - Provider: Stephany Paige APRN - WOOD BOAT BUILDER SUPERVISOR) citalopram (CELEXA) tablet 20 mg 20 mg, [...] (NoRateChange - Provider: Stephany Paige APRN - WOOD BOAT BUILDER SUPERVISOR)182 (Paused - Provider: Agata Pollard, VIKTORIA - [...] in 500 mL infusionJump to med 87.3 iavn-units/min (87.3 mL/hr), IntraVENous, CONTINUOUS PRN, Starting on [...] December 17, 2023 End: December 17, 2023 Entrepreneur Relationship Specialty Start Date End Date Chas Balderas MD [address] [place] [address] PCP - General Family Medicine 06/29/23 Entrepreneur Relationship Specialty Start Date End Date Katerin Haynes APRN-VANIA [address] [place] [address] PCP - General Family Medicine 11/23/22 Team Status: Active Member Role Status Dates Aline Villalobos MD Primary Care Provider Active Team Status: Inactive Member Role Status Dates Aline Villalobos MD Primary Care Provider Active Razia Muller , KILN TESTER-TRAIL MAINTENANCE WORKER-C Attending Provider Active Goals (unrecognized section and [...] BE BASED ON THE PRIMARY CLINICAL RECORDS. [employer] provides no warranty or guarantee of the accuracy or completeness of information in this document.
[2024-01-28 08:13] VITALS: BP 136/64; PULSE 86
== END 2024-01-28 09:00 | disposition home or self-care (01) ==
LOC: US 07:19 → FBC 07:26
PROVIDERS: PCP Family Medicine; Visit Provider Obstetrics & Gynecology
DX: O24.419 Gestational diabetes mellitus in pregnancy, unspecified control (principal); Z3A.35 35 weeks gestation of pregnancy
CPT/HCPCS: 76818; 76820

== ENCOUNTER 2024-06-11 08:54 | Outpatient (OUT) | payer MEDICAID, OTHER, SELFPAY ==
--- NOTE | 2024-06-11 08:57 | MR_ITS ---
The [address] [address] Patient Name: YANI STEVENS MRN: [facility]:[id number] date: 1990 Sex: F Assigned Patient Location: MRI Current Patient Location: MRI Accession/Order Number: [id number] Exam Date: 06/11/2024 14:56 Report Date: 06/11/2024 15:04 At the request of: MARINE BARRAZA NP Procedure: MR head/brain wo/w con MR head/brain wo/w con 06/11/2024 9:57 AM SIGN AND SYMPTOMS: Migraine headaches with tingling in numbness in face PROTOCOL: Multiplanar multisequence MR images of the brain were obtained with and without IV contrast CONTRAST: 20 mL of intravenous Dotarem COMPARISON: None. FINDINGS: Extra axial spaces: Age appropriate. Hemorrhage: None. Ventricular system: Within normal limits. Basal cisterns: Within normal limits and not effaced. Cerebral parenchyma: Normal in signal. No abnormal postcontrast enhancement. Midline shift: None.. Cerebellum: Within normal limits. Brainstem: Within normal limits. OTHER: Calvarium: Normal marrow signal. Vascular system: Satisfactory flow voids within the anterior and posterior circulation. There is flattening of the posterior/lateral transverse sinuses. Visualized Paranasal sinuses: There is mucosal thickening partially opacifying the left maxillary sinus. Because thickening is noted in the left ethmoid air cells. Visualized Orbits: Within normal limits. Visualized upper cervical spine: Within normal limits. Sella and skull base: There is flattening of the pituitary within the sella. This is atypical for the patient's age. MR/MR head/brain wo/w con IMPRESSION: No acute intracranial pathology or abnormal postcontrast enhancement. There is mucosal thickening in the left maxillary sinus partially opacifying. There is flattening of the pituitary within the sella along with flattening of the posterior lateral transverse sinuses suspicious for intracranial hypertension. Clinical correlation is advised. Impression dictated by: Sal Lin M.D.06/11/2024 3:04 PM Dictation Location: [place] [address] Electronically authenticated by: [id number] Y Date: 06/11/2024 15:04
== END 2024-06-11 08:55 | disposition home or self-care (01) ==
LOC: MRI 08:54
PROVIDERS: PCP Family Medicine; Visit Provider Nurse Practitioner Family
DX: R20.0 Anesthesia of skin (principal); H53.8 Other visual disturbances
CPT/HCPCS: 70553; A9575

== ENCOUNTER 2024-06-17 09:55 | Outpatient (OUT) | payer OTHER, MEDICAID, SELFPAY ==
--- OUTSIDE RECORDS SUMMARY | 2024-06-17 10:05 | XMS_ITS | CCD ---
Author Organization [facility] CliniSyhi Care Team Providers Care Engineering Technician Parking Name Role Phone PHYSICIAN, DEFAULT Unavailable Unavailable PHYSICIAN, DEFAULT Unavailable Unavailable Naga Wells Unavailable None, . Primary Care Provider UnavailAlesha Garcia Unavailable LILIA RUIZ Consulting Unavailable LILIA RUIZ Attending Unavailable LILIA RUIZ Admitting Unavailable NADEREWendi, DR CHAS Norman Primary Care Unavailable JACKIE TAYLOR Consulting Unavailable KARASIK ., DR DOUGHERTY [...] NADERER, DR CHAS Norman Primary Care Unavailable VIDHYA, DR ZAMORA Attending Unavailable VIDHYA, DR ZAMORA Admitting Unavailable NADERER, DR CHAS Norman Primary Care Unavailable VIDHYA, DR ZAMORA Consulting Unavailable RAYSA LINN Attending Unavailable RAYSA LINN Admitting Unavailable NADERER, DR CHAS Norman Primary Care Unavailable VIDHYA, DR ZAMORA Admitting Unavailable VIDHYA, DR ZAMORA Attending Unavailable VIDHYA, DR ZAMORA Consulting Unavailable NADERER, DR CHAS Norman Primary Care Unavailable ZIEBER, DR GERARD Adame Consulting Unavailable SHAIKH Vandana REED Attending Unavailable SHAIKH Vandana REED Admitting Unavailable NADERER, DR CHAS Norman Primary Care Unavailable VIDHYA, DR ZAMORA Admitting Unavailable VIDHYA, DR ZAMORA Attending Unavailable VIDHYA, DR ZAMORA Consulting Unavailable NADERER, DR CHAS Norman Primary Care Unavailable VIDHYA, DR ZAMORA Admitting Unavailable VIDHYA, DR ZAMORA Attending Unavailable NADERER, DR CHAS Norman Primary Care Unavailable VIDHYA, DR ZAMORA Consulting Unavailable FAWWAD, AMEZQUITA H Attending Unavailable FAWWAD, AMEZQUITA H Admitting Unavailable NADERER, DR CHAS Norman Primary Care Unavailable FAWWAD, H Attending Unavailable FAWWAD, AMEZQUITA H Admitting Unavailable NADERER, DR CHAS Norman Primary Care Unavailable VIDHYA, DR ZAMORA Admitting Unavailable VIDHYA, DR ZAMORA Attending Unavailable NADERER, DR CHAS Norman Primary Care Unavailable VIDHYA, DR ZAMORA Admitting Unavailable VIDHYA, DR ZAMORA Attending Unavailable NADERER, DR WOOD A Primary Care Unavailable VIDHAY, DR ZAMORA Admitting Unavailable VIDHYA, DR ZAMORA Attending Unavailable NADERER, DR WOOD A Primary Care Unavailable VIDHYA, DR ZAMORA Consulting Unavailable VIDHYA, DR ZAMORA Admitting Unavailable VIDHYA, DR ZAMORA Attending Unavailable NADERER, DR CHAS Norman Primary Care Unavailable VIDHYA, DR ZAMORA Attending Unavailable WEST, DR ALINE Henriquez Consulting Unavailable VIDHYA, DR ZAMORA Admitting Unavailable NADERER, DR CHAS Norman Primary Care Unavailable VIDHYA, DR ZAMORA Consulting Unavailable KARASIK ., DR DOUGHERTY Consulting Unavailabl e NADERER, DR CHAS Norman Primary Care Unavailable KARASIK ., DR DOUGHERTY Attending Unavailabl e KARASIK ., DR DOUGHERTY Admitting Unavailabl e VIDHYA, DR ZAMORA Consulting Unavailable ZIEBER, DR GERARD Adame Consulting Unavailable VIDHYA, DR ZAMORA Admitting Unavailable VIDHYA, DR ZAMORA Attending Unavailable NADERER, DR CHAS Norman Primary Care Unavailable VIDHYA, DR ZAMORA Consulting Unavailable KARASIK ., DR DOUGHERTY Admitting Unavailabl e KARASIK ., DR DOUGHERTY Consulting Unavailabl e KARASIK ., DR DOUGHERTY Attending Unavailabl e NADERER, DR CHAS Norman Primary Care Unavailable VIDHYA, DR ZAMORA Consulting Unavailable VIDHYA, DR ZAMORA Attending Unavailable VIDHYA, DR ZAMORA Admitting Unavailable NADERER, DR CHAS Norman Primary Care Unavailable ZIEBER, DR GERARD Adame Consulting Unavailable KARASIK ., DR DOUGHERTY Admitting Unavailabl e KARASIK ., DR DOUGHERTY Consulting Unavailabl e KARASIK ., DR DOUGHERTY Attending Unavailabl e NADERER, DR CHAS Norman Primary Care Unavailable VIDHYA, DR ZAMORA Admitting Unavailable VIDHYA, DR ZAMORA Attending Unavailable NADERER, DR CHAS Norman Primary Care Unavailable VIDHYA, DR ZAMORA Admitting Unavailable KARASIK ., DR DOUGHERTY Consulting Unavailabl e VIDHYA, DR ZAMORA Attending Unavailable NADERER, DR CHAS Norman Primary Care Unavailable WEST, DR ALINE Henriquez Consulting Unavailable VIDHYA, DR ZAMORA Consulting Unavailable KARASIK ., DR DOUGHERTY Admitting Unavailabl e KARASIK ., DR DOUGHERTY Consulting Unavailabl e KARASIK ., DR DOUGHERTY Attending Unavailabl e NADERER, DR CHAS Norman Primary Care Unavailable KARASIK ., DR DOUGHERTY Attending Unavailabl e KARASIK ., DR DOUGHERTY Admitting Unavailabl e KARASIK ., DR DOUGHERTY Consulting Unavailabl e FAWWAJune, [facility] Primary Care Unavailable VIDHYA, DR ZAMORA Admitting Unavailable VIDHYA, DR ZAMORA Attending Unavailable NADERER, DR CHAS Norman Primary Care Unavailable VIDHYA, DR ZAMORA Consulting Unavailable ZIEBER, DR GERARD [...] NADERER, DR CHAS Norman Primary Care Unavailable VIDHYA, DR ZAMORA Consulting Unavailable VIDHYA, DR ZAMORA Admitting Unavailable VIDHYA, DR ZAMORA Attending Unavailable NADERER, DR CHAS Norman Primary Care Unavailable VIDHYA, DR ZAMORA Consulting Unavailable VIDHYA, DR ZAMORA Attending Unavailable VIDHYA, DR ZAMORA Admitting Unavailable NADERER, DR CHAS Norman Primary Care Unavailable DAV COHEN Consulting Unavailable DAV COHEN Attending Unavailable FAWMEGAN, [facility] Primary Care Unavailable DAV COHEN Admitting Unavailable RICKY LOPEZ Consulting Unavailable VIDHYA, DR ZAMORA Admitting Unavailable VIDHYA, DR ZAMORA Attending Unavailable NADERER, DR CHAS Norman Primary Care Unavailable VIDHYA, DR ZAMORA Admitting Unavailable VIDHYA, DR ZAMORA Attending Unavailable VIDHYA, DR ZAMORA Consulting Unavailable NADERER, DR CHAS Norman Primary Care Unavailable ZIEBER, DR GERARD Adame Consulting Unavailable VIDHYA, DR ZAMORA Admitting Unavailable VIDHYA, DR ZAMORA Attending Unavailable NADERER, DR CHAS Norman Primary Care Unavailable VIDHYA, DR ZAMORA Consulting Unavailable VIDHYA, DR ZAMORA Admitting Unavailable VIDHYA, DR ZAMORA Attending Unavailable VIDHYA, DR ZAMORA Consulting Unavailable NADERER, DR CHAS Norman Primary Care Unavailable VIDHYA, DR ZAMORA Admitting Unavailable VIDHYA, DR ZAMORA Attending Unavailable NADERER, DR CHAS Norman Primary Care Unavailable VIDHYA, DR ZAMORA Consulting Unavailable ZIEBER, DR GERARD Adame Consulting Unavailable VIDHYA, DR ZAMORA Admitting Unavailable VIDHYA, DR ZAMORA Attending Unavailable VIDHYA, DR ZAMORA Consulting Unavailable NADERER, DR CHAS Norman Primary Care Unavailable VIDHYA, DR ZAMORA Admitting Unavailable VIDHYA, DR ZAMORA Attending Unavailable VIDHYA, DR ZAMORA Consulting Unavailable NADERER, DR CHAS Norman Primary Care Unavailable ZIEBER, DR GERARD Adame Consulting Unavailable VIDHYA, DR ZAMORA Admitting Unavailable VIDHYA, DR ZAMORA Attending Unavailable NADERER, DR CHAS Norman Primary Care Unavailable VIDHYA, DR ZAMORA Consulting Unavailable VIDHYA, DR ZAMORA Admitting Unavailable VIDHYA, DR ZAMORA Attending Unavailable NADERER, DR CHAS Norman Primary Care Unavailable VIDHYA, DR ZAMORA Consulting Unavailable ZIEBER, DR GERARD Adame Consulting Unavailable VIDHYA, DR ZAMORA Attending Unavailable MISC, DR ROSE Primary Care Unavailable VIDHYA, DR ZAMORA Admitting Unavailable MD Aline Villalobos Primary Care Provider JOSHUA Muller-KATIE-Kaushik Coronado Attending Provider Aline Villalobos Primary Care Unavailable Renzo, Razia E Admitting Unavailable Razia Muller Attending Unavailable Aline Villalobos Primary Care Unavailable Renzo, Razia E Admitting Unavailable Renzo, Razia E Attending Unavailable Jovita Murcia Unavailable JP NUNEZ Attending Unavailable RAZIA MULLER Referring Unavailable JANNIEERECHAS Adame Primary Care Unavailable KATERIN TAI Attending Unavailable KATERIN TAI Referring Unavailable KATERIN TAI Primary Care Unavailable NADERER, CHAS Primary Care Unavailable BONITA COFFMAN Attending Unavailable NADERER, CHAS Primary Care Unavailable MANUEL GODINEZ Attending Unavailable HERBERT, MANUEL Attending Unavailable MANUEL GODINEZ Referring Unavailable NADERER, CHAS Primary Care Unavailable NADERER, [facility] Primary Care Unavailable KANIKA VIDAL Attending Unavailable CLAUDIA DUFF Admitting Unavailable OMEGACLAUDIA R Attending Unavailable NADERER, CHAS Primary Care Unavailable SCHLACHTER, KATERIN Primary Care Unavailable CLAUDIA SOLARES E Attending Unavailable LINA HUGHES Attending Unavailable LINA HUGHES Referring Unavailable SCHLACHTER, KATERIN Primary Care Unavailable RAZIA MULLER Referring Unavailable SCHLACHTER, KATERIN Primary Care Unavailable Chas Balderas MD Primary Care Provider [phone] MATEO GODFREY C Referring Unavailable [facility] Primary Care Unavailabl e PERLORAINE, MATEO C Referring Unavailable [facility], [facility] Primary Care UnavailMARINE Drummond S Admitting Unavailable MARINE BERMAN S Consulting Unavailable MARINE BERMAN S Attending Unavailable [facility] Primary Care Unavailbrinda e JIAN CLAUDIA E Admitting Unavailable CLAUDIA COHEN Attending [facility]available [facility] Primary Care Unavailabl e PERNI, MATEO C Referring Unavailable NADERE, [facility] Primary Care UnavailChas Lopez MD Primary Care Provider CHAS BALDERAS Attending Unavailable VIDHYA, MK Attending Unavailable SHERRIE, CHAS Attending Unavailable VIDHYA, MK Attending Unavailable VIDHYA, MK Attending Unavailable VIDHYA, MK Attending Unavailable MARIKASELENE Attending Unavailable VIDHYA, MK Attending Unavailable VIDHYA, MK Attending Unavailable VIDHYA, MK Attending Unavailable VIDHYA, MK Attending Unavailable VIDHYA, MK Attending Unavailable VIDHYA, MK Attending Unavailable NADERER, CHAS Attending Unavailable MULLER, RAZIA Attending Unavailable Allergies Allergy Classification Reported Allergen(s) Allergy Type Date of Onset Reaction(s) Facility (20 sources) Amoxicillin; Translations: [Amoxicillin] Drug Allergy 11-08-18 96 Anaphylaxis, shortness of breath [facility] (20 sources) Morphine; Translations: [MORPHINE] Drug Allergy 09-18-19 18 hives, Rash [place] [facility] Other (20 sources) Codeine; Translations: [CODEINE] Drug Allergy 06-06-19 23 Hives [facility] (10 sources) Penicillins; Translations: [PENICILLINS] Propensity to adverse reactions to drug 02-22-20 16 Anaphylaxis, Shortness Of Breath [facility] Work Phone: Comment on above: Onset Date: 02/28/20 22 (1 source) Codeine Drug Allergy 07-30-19 22 [facility] Repository (1 source) Morphine Drug Allergy [facility] Repository (1 source) Codeine Drug Allergy 12-23-19 23 [facility] Repository (1 source) Morphine Drug Allergy 05-25-19 21 [facility] Repository (1 source) Pseudoephedrine Drug Allergy 02-22-20 22 Unknown [facility] Other (1 source) Allergies Reconciled Propensity to adverse reactions 02-28-20 Unknown [facility] Other (1 source) Substance with penicillin structure and antibacterial mechanism of action (substance) Drug allergy 02-28-20 Unknown [facility] Other (1 source) Morphine Sulfate (Concentrate) *ANALGESICS - OPIOI Propensity to adverse reactions 02-28-20 Unknown [facility] Other (20 sources) Doxycycline; Translations: [DOXYCYCLINE] Drug Allergy 02-08-20 23 [facility] Repository (2 sources) 12 Hour Decongestant Allergy to substance 12-17-19 Unknown Reaction [facility] Comment on above: Onset Date: 02/22/20 22 (20 sources) Penicillins Drug Allergy 09-27-19 23 Anaphylaxis [facility] (7 sources) Nasal [place] Drug Allergy 12-17-19 24 [facility] Healthcare Medications Current Medications Medication Drug Class(es) Dates Sig (Normalized) Sig (Original) acetaminophen 500 mg oral tablet (20 sources) Start: 12-31-2023 Start: 07-20-2022 1,000 mg, Oral , EVERY 6 HOURS, First dose on [place]ogany [...] mg, Oral, ONCE, 1 dose, On [place] at 1545 Administer with sips of water. Labor and Delivery (Signed and Held) End: 06-11-2024 take 2 tablets by mouth every six hours as needed acetaminophen (Tylenol) 500 MG tablet Ta ke 1,000 mg by mouth every 6 (six) hours if needed 06/11/2024 Discontinued take 1 tablet by ken th every six hours as needed Acetaminophen 500 MG 1 tablet as needed Orally every 6 hrs Active acetaZOLAMIDE 250 mg oral tablet (20 sources) Carbonic Anhydrase Inhibitor Start: 06-09-2024 take 2 tablets by mouth in the morning acetaZOLAMIDE (Diamox) 250 MG tablet Indications: IIH (idiopathic intracranial hypertension) TAKE 2 TABLETS BY MOUTH IN THE MORNING AND 2 TABLETS BEFORE BEDTIME. 360 tablet 1 06/09/2024 Active Start: 04-21-2024 End: 05-21-2024 take 1 tablet by mouth twice daily, then take 2 tablets by mouth twice daily acetaZOLAMIDE (Diamox) 250 MG tablet Indications: IIH (idiopathic intracranial hypertension) Take 1 tablet (250 mg) by mouth 2 (two) times a day for 14 days, THEN 2 tablets (500 mg) 2 (two) times a day for 16 days. 92 tablet 04/21/2024 05/21/2024 Active Start: 10-18-2023 End: 02-25-2024 take 2 tablets by mouth in the morning acetaZOLAMIDE (Diamox) 250 MG tablet Take 500 mg by mouth in the morning and 500 mg before bedtime. 10/18/2023 02/25/2024 Discontinued take 1 tablet by ken th every twenty-four hours acetaZOLAMIDE 250 MG 1 tablet as needed Orally Once a day Active [id number] 200 actuat albuterol 0.09 mg/actuat metered dose inhaler (20 sources) beta2-Adrenergic Agonist Start: 08-04-2023 take 2 puff(s) by inhalation every six hours for wheezing albuterol HFA 90 mcg/act inhaler Inhale 2 puffs every 6 (six) hours if needed for wheezing 08/04/2023 Active Start: 02-05-2023 take 2 puff(s) by in halation four times daily as needed Albuterol Sulfate HFA 108 (90 Base) MCG/ACT 2 puffs Inhalation 4 times a day prn Jan, Active Start: 05-22-2022 albuterol sulf ate HFA (PROVENTIL;VENTOLIN;PROAIR) 108 (90 Base) MCG/ACT inhaler 05/22/2022 Active azithromycin 250 mg oral tablet (1 source) Macrolide Antimicrobial Start: 07-06-2022 azithromycin (ZITHROMAX) 250 MG tablet benzonatate 200 mg oral capsule (1 source) Non-narcotic Antitussive Start: 02-05-2023 take 1 capsule by mouth every eight hours Benzonatate 200 MG 1 capsule Orally Three times a day Jan, Active Blood Glucose Monitoring Suppl (D-Care Glucometer) w/Device kit (20 sources) Start: 09-11-2023 End: 06-11-2024 Blood Glucose Monitoring Suppl (D-Care Glucometer) w/Device kit Indications: Gestational diabetes mellitus (GDM), antepartum, gestational diabetes method of control unspecified , Elevated glucose tolerance test 1 kit Daily Use four times daily to check FSBS. In the morning prior to breakfast & 1 hour after each meal for a total of 4times daily. 1 kit 09/11/2023 06/11/2024 Discontinued Start: 09-11-2023 End: 09-10-[address] (D-Care Glucometer) w/Device kit Indications: Gestational diabetes mellitus (GDM), antepartum, gestational diabetes method of control unspecified , Elevated glucose tolerance test 1 kit Daily Use four times daily to check FSBS. In the morning prior to breakfast & 1 hour after each meal for a total of 4times daily. 1 kit 09/11/2023 09/10/2024 Active Blood Glucose Monitoring Sup pl (ONE TOUCH ULTRA 2) w/Device KIT (6 sources) Start: 03-04-2022 Blood Glucose Monitoring Suppl (ONE TOUCH ULTRA 2) w/Device KIT 03/04/2022 Active Start: 03-04-2022 Blood Glucose Monitoring Suppl (ONE TOUCH ULTRA 2) w/Device KIT 24 hr buPROPion hydrochloride 150 mg extended release oral tablet (2 sources) Aminoketone Start: 06-14-2022 buPROPion (WELLBUTRIN XL) 150 MG extended release tablet cetirizine hydrochloride 10 mg oral tablet (20 sources) Histamine-1 Receptor Antagonist Start: 02-19-2024 End: 02-18-2025 take 1 tablet by mouth once daily cetirizine (ZyrTEC) 10 MG tablet Indications: Chronic rhinitis Take 1 tablet (10 mg) by mouth Daily 30 tablet 11 02/19/2024 02/18/2025 Active Start: 07-18-2022 take 1 tablet by ken th once daily cetirizine (ZyrTEC) 10 MG tablet Take 10 mg by mouth Daily 09/16/2023 Active citalopram 40 mg oral tablet (20 sources) Serotonin Reuptake Inhibitor Start: 02-25-2024 take 1 tablet by mouth once daily citalopram (CeleXA) 40 MG tablet Indications: Bipolar 1 disorder, depressed, mild (CMS/HCC) Take 1 tablet (40 mg) by mouth Daily 30 tablet 5 02/25/2024 Active Start: 01-09-2024 End: 01-08-2025 take 1 tablet by mouth once daily citalopram (CeleXA) 20 MG tablet Indications: Depression with anxiety Take 1 tablet (20 mg) by mouth Daily 30 tablet 11 01/09/2024 02/25/2024 Discontinued (Reorder) Start: 12-22-2022 End: 12-17-2023 take 1 tablet by mouth once daily Citalopram (Celexa) 40 mg Tablet Discontinued 40 MG PO Daily December 21, 2022 11:00pm December 17, 2023 12:06pm Start: 07-21-2022 take 1 tablet by ken th once daily citalopram (CELEXA) 20 MG tablet Take 1 tablet by mouth daily 30 tablet 1 07/21/2022 Active Start: 05-02-2022 citalopram (CE BRENNA) 20 MG tablet clindamycin 300 mg oral capsule (3 sources) Lincosamide Antibacterial Start: 01-03-2024 End: 01-10-2024 take 1 capsule by mouth in the morning, then take 1 capsule by mouth in the evening, then take 1 capsule by mouth at bedtime clindamycin (Cleocin) 300 MG capsule Indications: Urinary tract infection without hematuria, site unspecified Take 1 capsule (300 mg) by mouth in the morning and 1 capsule (300 mg) in the evening and 1 capsule (300 mg) before bedtime. Do all this for 7 days. 21 capsule 01/03/2024 01/10/2024 Active Start: 07-20-2022 End: 07-20-2022 clindamycin (CLEOCIN) 900 mg in dextrose 5 % 50 mL IVPB docusate sodium 100 mg oral capsule (5 sources) Start: 11-22-2023 End: 12-22-2023 take 1 capsule by mouth twice daily as needed for constipation docusate sodium (Colace) 100 MG capsule Indications: Constipation, unspecified constipation type Take 1 capsule (100 mg) by mouth 2 (two) times a day as needed for constipation 30 capsule 11/22/2023 12/22/2023 Active Start: 07-20-2022 End: 08-19-2022 take 100 mg by mouth twice daily 100 mg, Oral, 2 TIMES DAILY, First dose on [place] 07/20/22 at 2100, Until Discontinued Do not crush or break. doxycycline hyclate 100 mg oral capsule (2 sources) Tetracycline-class Drug Start: 05-09-2024 take 1 capsule by mouth twice daily Doxycycline Hyclate 100 mg capsule Active 100 MG PO Twice daily 09 02May 09, 2024 12:00am Start: 02-05-2023 take 1 tablet by ken th every twelve hours Doxycycline Hyclate 100 MG 1 tablet Orally Twice a day for 10 day(s) Jan, Active fluticasone propionate 0.05 mg/actuat metered dose nasal spray (20 sources) Corticosteroid Start: 06-11-2024 take 2 spray(s) nasal route once daily fluticasone (Flonase) 50 MCG/ACT nasal spray Indications: Chronic rhinosinusitis Administer 2 sprays into each nostril Daily Shake gently. Before first use, prime pump. After use, clean tip and replace cap. 16 g 5 06/11/2024 Active Start: 06-11-2024 take 2 spray(s) nasa l route once daily fluticasone (Flonase) 50 MCG/ACT nasal spray Indications: Chronic rhinosinusitis Administer 2 sprays into each nostril Daily Shake gently. Before first use, prime pump. After use, clean tip and replace cap. 16 g 5 06/11/2024 Active Start: 05-09-2024 take 2 spray(s) nasa l route once daily Fluticasone Propionate (Flonase Allergy Relief) 50 mcg/actuation spray,suspension Active 2 SPRAY INTRANASAL Daily May 09, 2024 12:00am administer 2 spray into each nostril Start: 09-20-2023 End: 06-11-2024 take 1 spray(s) nasal route in the morning fluticasone (Flonase) 50 MCG/ACT nasal spray SPRAY 1 SPRAY INTO EACH NOSTRIL IN THE MORNING 09/20/2023 06/11/2024 Discontinued (Reorder) Start: 07-18-2022 fluticasone (F LONASE) 50 MCG/ACT nasal spray 07/18/2022 Active Start: 07-18-2022 take 1 spray(s) nasa l route once daily Flonase Allergy Relief 50 MCG/ACT 1 spray in each nostril Nasally Once a day for 14 day(s) Jun, Not-Taking 1.5 ml fremanezumab-vfrm 150 mg/ml prefilled syringe (1 source) Ajovy 225 MG/1.5 ML 1.5 mL Subcutaneous Active 3 ml insulin isophane, human 100 unt/ml pen injector (20 sources) Start: 10-09-2023 End: 02-25-2024 NovoLIN N FlexPen 100 UNIT/M L injection Inject 30 Units under the skin at bedtime 10/09/2023 02/25/2024 Discontinued Start: 06-29-2022 HUMULIN N KWIK PEN 100 UNIT/ML injection pen 50 Units 06/29/2022 Active Start: 05-12-2022 HUMULIN N KWIK PEN 100 UNIT/ML injection pen 40 Units 0 05/12/2022 Active insulin NPH (HUM ULIN N;NOVOLIN N) 100 UNIT/ML injection vial Inject 20 Units into the skin nightly Active 3 ml insulin lispro 100 unt/ml pen injector (18 sources) Insulin Analog Start: 11-29-2023 End: 02-25-2024 inject 6 [IU] by subcutaneous injection before dinner HumaLOG KWIKPEN 100 UNIT/ML injection INJECT 6 UNITS UNDER THE SKIN BEFORE DINNER 11/29/2023 02/25/2024 Discontinued Start: 07-20-2022 0-12 Units, SubCUTAneous, 4 TIMES [...] 350-400 10 Units Above 400 12 Units Insulin Nph Isoph U-100 Human (1 source) Start: 12-17-2023 inject 5 [IU] by subcutaneous injection once daily in the evening Insulin Nph Isoph U-100 Human Active 5 UNIT SUBCUT Every evening December 17, 2023 12:00am insulin, regular, human 100 unt/ml injectable solution (6 sources) Insulin Start: 06-29-2022 HUMULIN R 100 UNIT/ML injection Inject 32 Units into the skin 2 times daily (before meals) 13 before breakfast and 32 before dinner 06/29/2022 Active Start: 05-15-2022 HUMULIN R 100 UNIT/ML injection Inject 26 Units into the skin 2 times daily (before meals) 0 05/15/2022 Active isopropyl alcohol 0.7 ml/ml medicated pad (20 sources) Start: 12-07-2023 End: 06-11-2024 Alcohol Swabs (Alcohol Prep) 70 % pads APPLY 1 PAD TOPICALLY DAILY USE FOUR TIMES DAILY TO CHECK FSBS. 12/07/2023 06/11/2024 Discontinued Start: 05-02-2022 Alcohol Swabs (ALCOHOL PREP) 70 % PADS 05/02/2022 Active labetalol hydrochloride 100 mg oral tablet (20 sources) beta-Adrenergic Roxana Start: 10-03-2023 End: 06-11-2024 take 1 tablet by mouth in the morning labetalol (Normodyne) 100 MG tablet Indications: Secondary hypertension (CMS/HCC) Take 1 tablet (100 mg) by mouth in the morning and 1 tablet (100 mg) before bedtime. 60 tablet 2 10/03/2023 06/11/2024 Discontinued Start: 12-22-2022 End: 05-09-2024 take 2 tablets by mouth twice daily Labetalol 200 mg Tablet Discontinued 400 MG PO Twice daily December 21, 2022 11:00pm May 09, 2024 9:39am Start: 12-22-2022 take 400 mg by mouth twice daily Labetalol Active 400 MG PO Twice daily December 22, 2022 12:00am Start: 07-22-2022 take 4 tablets by mo uth at bedtime labetalol (NORMODYNE) 100 MG tablet Take 4 tablets by mouth in the morning, at noon, and at bedtime 60 tablet 3 07/22/2022 Active Start: 07-21-2022 labetalol (NOR MODYNE) tablet 400 mg Start: 06-01-2022 take 2 tablets by mo uth twice daily labetalol (NORMODYNE) 100 MG tablet Take 2 tablets by mouth 2 times daily 06/01/2022 Active Start: 06-01-2022 End: 07-21-2022 labetalol (NORMODYNE) tablet 200 mg Labetalol HCl Ac tive lamoTRIgine 25 mg oral tablet (17 sources) Mood Stabilizer, Anti-epileptic Agent Start: 02-25-2024 take 1 tablet by mouth once daily at bedtime, then take 2 tablets by mouth once daily at bedtime lamoTRIgine (LaMICtal) 25 MG tablet Indications: Bipolar 1 disorder, depressed, mild (CMS/HCC) 1 PO QHS x 2 weeks then 2 PO QHS 60 tablet 3 02/25/2024 Active Start: 11-27-2018 End: 12-22-2022 take 1 tablet by mouth once daily Lamotrigine 150 mg Tablet Discontinued 150 MG PO Daily November 26, 2018 11:00pm December 22, 2022 7:12am lamoTRIgine 250 MG TB24 Take 150 mg by mouth 0 Active take 1 tablet by ken th every twenty-four hours LaMICtal 200 MG 1 tablet Orally once a day Active lanolin 0.5 mg/mg topical ointment (1 source) Start: 07-20-2022 Topical, EVERY 1 HOUR PRN, Dry Skin, nipple discomfort, Starting on [place] 07/20/22 at 1933, levothyroxine sodium 0.025 mg oral tablet (20 sources) l-Thyroxi ne Start: 12-17-2023 take 3 tablets by mouth once daily Levothyroxine 25 mcg tablet Active 75 MCG PO Daily December 17, 2023 12:07pm Start: 12-17-2023 take 75 ug by mouth once daily Levothyroxine Active 75 MCG PO Daily December 17, 2023 1:07pm Start: 10-01-2023 End: 09-30-2024 take 1 tablet by mouth in the morning levothyroxine (Synthroid, Levoxyl) 75 MCG tablet Indications: Acquired hypothyroidism (CMS/HCC) Take 1 tablet (75 mcg) by mouth in the morning. 30 tablet 11 10/01/2023 09/30/2024 Active Start: 07-20-2022 take 1 tablet by ken th once daily levothyroxine (SYNTHROID) 50 MCG tablet Take 1 tablet by mouth Daily 30 tablet 3 07/20/2022 Active Start: 07-07-2022 levothyroxine (SYNTHROID) 50 MCG tablet Start: 05-22-2022 End: 07-20-2022 levothyroxine (SYNTHROID) 75 MCG tablet Start: 11-27-2018 End: 12-17-2023 take 2 tablets by mouth once daily Levothyroxine 25 mcg Tablet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 medical care (20 sources) Wound dehiscence; Translations: [Disruption of wound, unspecified, initial encounter] Onset: 12-06-2022 Resolved: 05-22-2023 05-22-2023 Episodic Contraceptive and procreative management (20 sources) Intrauterine contraceptive device in situ; Translations: [Presence of (intrauterine) contraceptive device] Onset: 07-20-2022 Resolved: 05-22-2023 Episodic Diabetes or abnormal glucose tolerance complicating ; childbirth; or the puerperium (8 sources) Diabetes mellitus during - baby not yet delivered; Translations: [Unspecified diabetes mellitus in , unspecified trimester] Onset: 07-03-2011 Resolved: 07-22-2022 01-21-2015 Chronic Diabetes or abnormal glucose tolerance complicating ; childbirth; or the puerperium (20 sources) Gestational diabetes mellitus; Translations: [Gestational diabetes mellitus in , insulin controlled] Onset: 03-15-2022 Resolved: 01-29-2024 Episodic Diseases of mouth; excluding dental (20 sources) Oral lesion; Translations: [Other lesions of oral mucosa] Onset: 12-06-2022 Resolved: 05-22-2023 05-22-2023 Episodic E Codes: Natural/environment (1 source) Other and unspecified overexertion or strenuous movements or postures, initial encounter; Translations: [OTH AND UNS OVREXRT/STRN MVMT/POS INT] Onset: 03-22-2022 Episodic Hemorrhage during ; abruptio placenta; placenta previa (12 sources) Placenta previa without hemorrhage - not delivered; Translations: [Complete placenta previa NOS or without hemorrhage, unspecified trimester] Onset: 05-04-2011 Resolved: 07-22-2022 05-04-2011 Episodic Menstrual disorders (20 sources) Irregular menstruation, unspecified; Translations: [Irregular periods] Onset: 01-09-2022 Resolved: 08-24-2023 Chronic Mood disorders (20 sources) Mood disorders Onset: 05-22-2023 05-22-2023 Other aftercare (1 source) History and physical examination, follow-up; Translations: [Encounter for follow-up examination after completed treatment for conditions other than malignant neoplasm] Resolved: 03-01-2021 Episodic Other complications of (20 sources) Anemia in mother complicating , childbirth AND/OR puerperium; Translations: [Anemia complicating , third trimester] Onset: 12-06-2022 Resolved: 05-22-2023 05-22-2023 Chronic Other complications of (6 sources) Congenital abnormality of uterus in , childbirth and the puerperium; Translations: [Maternal care for unspecified congenital malformation of uterus, unspecified trimester] Onset: 05-04-2011 Resolved: 07-22-2022 05-04-2011 Episodic Other complications of (20 sources) Maternal tobacco use; Translations: [Smoking (tobacco) complicating , unspecified trimester] Onset: 05-04-2011 Resolved: 05-22-2023 01-21-2015 Episodic Other complications of (20 sources) condition affecting obstetrical care of mother; Translations: [Maternal care for abnormalities of the heart rate or rhythm, unspecified trimester, not applicable or unspecified] Onset: 07-31-2011 Resolved: 05-22-2023 07-31-2011 Episodic Other complications of (5 sources) Abnormal findings on screening of mother; Translations: [Other abnormal findings on screening of mother] Onset: 07-20-2022 Episodic Other complications of (4 sources) Spotting complicating , second trimester; Translations: [SPOTTING COMP SECOND TRI] Onset: 05-04-2022 Episodic Other complications of (5 sources) Other specified related conditions, second trimester; Translations: [OTH SPEC PREG RELATED COND 2ND TRI] Onset: 04-11-2022 Episodic Other complications of (20 sources) depression; Translations: [Other mental disorders complicating , unspecified trimester] Onset: 11-30-2021 Resolved: 05-22-2023 05-22-2023 Episodic Other connective tissue disease (1 source) [...] Translations: [Other constipation] Resolved: 04-13-2021 Episodic Other gastrointestinal disorders (20 sources) Diarrhea; Translations: [Diarrhea, unspecified] Onset: 12-06-2022 Resolved: 05-22-2023 05-22-2023 Episodic Other injuries and conditions due to external causes (1 source) Traumatic AND/OR non-traumatic injury; Translations: [Other injury of unspecified body region, initial encounter] Resolved: 04-06-2022 Episodic Other lower respiratory disease (1 source) Dyspnea; Translations: [Other forms of dyspnea] Resolved: 07-27-2021 Episodic Other nervous system disorders (1 source) Paresthesia of skin; Translations: [Paresthesia of skin] Onset: 06-14-2023 Episodic Other nervous system disorders (20 sources) Paresthesia; Translations: [Paresthesia of skin] Onset: 08-22-2023 08-22-2023 Episodic Other nervous system disorders (20 sources) Numbness of face; Translations: [Anesthesia of skin] Onset: 08-22-2023 08-22-2023 Episodic Other non-traumatic joint disorders (3 sources) Pain in right shoulder; Translations: [PAIN IN RIGHT SHOULDER] Onset: 03-19-2022 Episodic Other non-traumatic joint disorders (20 sources) Pain in left knee; Translations: [Pain in joint, lower leg] Onset: 12-06-2022 Resolved: 05-22-2023 05-22-2023 Episodic Other nutritional; endocrine; and metabolic disorders (20 sources) Body mass index 40+ - severely obese; Translations: [Morbid (severe) obesity due to excess calories] Onset: 07-20-2022 Resolved: 05-22-2023 Chronic Other and delivery including normal (20 sources) state, incidental; Translations: [Encounter for supervision of normal , unspecified, second trimester] Onset: 01-04-2021 Resolved: 02-25-2024 Episodic Other screening for suspected conditions (not mental disorders or infectious disease) (20 sources) Patient encounter status; Translations: [Ultrasound recheck of pyelectasis, antepartum] Onset: 05-04-2011 Resolved: 07-22-2022 05-04-2011 Episodic Other upper respiratory disease (20 sources) Cyst of maxillary sinus; Translations: [Cyst and mucocele of nose and nasal sinus] Onset: 12-06-2022 Resolved: 05-22-2023 05-22-2023 Episodic Poisoning by other medications and drugs (1 source) Poisoning by beta-adrenoreceptor antagonists, accidental (unintentional), initial encounter; Translations: [Poisoning by beta-adrenoreceptor antagonists, accidental (unintentional), initial encounter] Onset: 08-28-2023 Episodic Polyhydramnios and other problems of amniotic cavity (7 sources) Oligohydramnios with problem; Translations: [Oligohydramnios, unspecified trimester, not applicable or unspecified] Onset: 09-25-2011 Resolved: 07-22-2022 09-25-2011 Episodic Residual codes; unclassified (6 sources) Gestation period, 35 weeks; Translations: [35 weeks gestation of ] Onset: 07-15-2022 Resolved: 07-22-2022 Episodic Residual codes; unclassified (20 sources) Postoperative state; Translations: [Other specified postprocedural states] Onset: 07-20-2022 Resolved: 05-22-2023 Episodic Residual codes; unclassified (5 sources) Gestation period, 36 weeks; Translations: [36 [...] ] Resolved: 07-05-2021 Episodic Residual codes; unclassified (3 sources) Gestation period, 31 weeks; Translations: [31 weeks gestation of ] Onset: 12-31-2023 Resolved: 07-05-2021 12-31-2023 Episodic Residual codes; unclassified (1 source) Gestation period, 12 weeks; Translations: [12 weeks gestation of ] Resolved: 03-01-2021 Episodic Residual codes; unclassified (1 source) Gestation period, 16 weeks; Translations: [16 weeks gestation of ] Resolved: 04-13-2021 Episodic Residual codes; unclassified (20 sources) Insomnia; Translations: [Insomnia, unspecified] Onset: 12-06-2022 12-06-2022 Episodic Residual codes; unclassified (20 sources) Memory impairment; Translations: [Other amnesia] Onset: 08-22-2023 Resolved: 02-25-2024 08-22-2023 Episodic Residual codes; unclassified (20 sources) Gestation period, 32 weeks; Translations: [32 weeks gestation of ] Onset: 01-01-2024 Resolved: 02-25-2024 01-01-2024 Episodic Residual codes; unclassified (2 sources) Family history of other specified conditions; Translations: [Family history of other specified conditions] Onset: 10-09-2023 Episodic Spondylosis; intervertebral disc disorders; other back problems (20 sources) Low back pain; Translations: [Low back pain, unspecified] Onset: 02-14-2023 Resolved: 05-22-2023 05-22-2023 Episodic Sprains and strains (20 sources) Strain of unspecified muscle, fascia and tendon at shoulder and upper arm level, right arm, initial encounter; Translations: [Unspecified sprain of right shoulder joint, initial encounter] Onset: 03-22-2022 Resolved: 08-24-2023 Episodic Substance-related disorders (1 source) Other psychoactive substance use, unspecified, uncomplicated; Translations: [Other psychoactive substance use, unspecified, uncomplicated] Onset: 08-28-2023 Episodic Thyroid disorders (20 sources) Mass of thyroid gland; Translations: [Disorder of thyroid, unspecified] Onset: 12-06-2022 12-06-2022 Episodic Unclassified (1 source) OT SPCF DIS/COND COMPL ; Translations: [OT SPCF DIS/COND COMPL ] Onset: 05-29-2022 Unclassified (1 source) abnormal result; Translations: [Other nonspecific abnormal finding] Unclassified (1 source) Myalgic encephalomyelitis/chr onic fatigue syndrome; Translations: [Myalgic encephalomyelitis/chr onic fatigue syndrome] Resolved: 07-20-2021 Unclassified (1 source) Suspected COVID-19 virus infection Z20.822 Results Test Name Value Interpretation Reference Range Facility MRI HEAD/BRAIN WO/W CONTRon 06-11-2024 [place] [address] Magnetic Resonance Report Signed Patient: YANI STEVENS MR#: [id number] : 1990 Acct:[id number] Age/Sex: 34 / F ADM Date: 06/11/24 Loc: MRI Attending Dr: Razia Muller NP Ordering Physician: Razia Muller NP Date of Service: 06/11/24 Procedure(s): MR head/brain wo/w con Accession Number(s): [id number] cc: Razia Muller NP; Chas Balderas M.D. [place] [id number] Patient Name: YANI STEVENS MRN: [id number] date: 1990 Sex: F Assigned Patient Location: MRI Current Patient Location: MRI Accession/Order Number: [id number] Exam Date: 06/11/2024 14:56 Report Date: 06/11/2024 15:04 At the request of: RAZIA MULLER NP Procedure: MR head/brain wo/w con MR head/brain wo/w con 06/11/2024 9:57 AM SIGN AND SYMPTOMS: Migraine headaches with tingling in numbness in face PROTOCOL: Multiplanar multisequence MR images of the brain were obtained with and without IV contrast CONTRAST: 20 mL of intravenous Dotarem COMPARISON: None. FINDINGS: Extra axial spaces: Age appropriate. Hemorrhage: None. Ventricular system: Within normal limits. Basal cisterns: Within normal limits and not effaced. Cerebral parenchyma: Normal in signal. No abnormal postcontrast enhancement. Midline shift: None.. Cerebellum: Within normal limits. Brainstem: Within normal limits. OTHER: Calvarium: Normal marrow signal. Vascular system: Satisfactory flow voids within the anterior and posterior circulation. There is flattening of the posterior/lateral transverse sinuses. Visualized Paranasal sinuses: There is mucosal thickening partially opacifying the left maxillary sinus. Because thickening is noted in the left ethmoid air cells. Visualized Orbits: Within normal limits. Visualized upper cervical spine: Within normal limits. Sella and skull base: There is flattening of the pituitary within the sella. This is atypical for the patient's age. MR/MR head/brain wo/w con IMPRESSION: No acute intracranial pathology or abnormal postcontrast enhancement. There is mucosal thickening in the left maxillary sinus partially opacifying. There is flattening of the pituitary within the sella along with flattening of the posterior lateral transverse sinuses suspicious for intracranial hypertension. Clinical correlation is advised. Impression dictated by: Vernon Lin M.D.06/11/2024 3:04 PM Dictation Location: [place] [address] Electronically authenticated by: [id number] Y Date: 06/11/2024 15:04 Dictated By: Vernon Lin M.D. Signed By: 06/11/24 1506 DD/ 1504 TD/TT: Prepper: [facility] Radiology, Radiologberna copeland MD - 06/11/2024 [place] [address] Magnetic Resonance Report Signed Patient: YANI STEVENS MR#: [id number] : 1990 Acct:[id number] Age/Sex: 34 / F ADM Date: 06/11/24 Loc: MRI Attending Dr: Razia Muller NP Ordering Physician: Razia Muller NP Date of Service: 06/11/24 Procedure(s): MR head/brain wo/w con Accession Number(s): [id number] cc: Razia Muller NP; Chas Balderas M.D. [place] [address] Patient Name: YANI STEVENS MRN: [facility]:[id number] date: 1990 Sex: F Assigned Patient Location: MRI Current Patient Location: MRI Accession/Order Number: [id number] Exam Date: 06/11/2024 14:56 Report Date: 06/11/2024 15:04 At the request of: RAZIA MULLER NP Procedure: MR head/brain wo/w con MR head/brain wo/w con 06/11/2024 9:57 AM SIGN AND SYMPTOMS: Migraine headaches with tingling in numbness in face PROTOCOL: Multiplanar multisequence MR images of the brain were obtained with and without IV contrast CONTRAST: 20 mL of intravenous Dotarem COMPARISON: None. FINDINGS: Extra axial spaces: Age appropriate. Hemorrhage: None. Ventricular system: Within normal limits. Basal cisterns: Within normal limits and not effaced. Cerebral parenchyma: Normal in signal. No abnormal postcontrast enhancement. Midline shift: None.. Cerebellum: Within normal limits. Brainstem: Within normal limits. OTHER: Calvarium: Normal marrow signal. Vascular system: Satisfactory flow voids within the anterior and posterior circulation. There is flattening of the posterior/lateral transverse sinuses. Visualized Paranasal sinuses: There is mucosal thickening partially opacifying the left maxillary sinus. Because thickening is noted in the left ethmoid air cells. Visualized Orbits: Within normal limits. Visualized upper cervical spine: Within normal limits. Sella and skull base: There is flattening of the pituitary within the sella. This is atypical for the patient's age. MR/MR head/brain wo/w con IMPRESSION: No acute intracranial pathology or abnormal postcontrast enhancement. There is mucosal thickening in the left maxillary sinus partially opacifying. There is flattening of the pituitary within the sella along with flattening of the posterior lateral transverse sinuses suspicious for intracranial hypertension. Clinical correlation is advised. Impression dictated by: Vernon Lin M.D.06/11/2024 3:04 PM Dictation Location: [place] [address] Electronically authenticated by: [id number] Y Date: 06/11/2024 15:04 Dictated By: Vernon Lin M.D. Signed By: 06/11/24 1506 DD/ 1504 TD/TT: Prepper: [facility] Radiology Study observation (narrative) [facility] MRI HEAD/BRAIN WO/W CONTROrd ered By: Radiologist Radiology on 06-11-2024 [facility] Work Phone: Urinalysis macro (dipstick) panel (U)on 03-19-2024 Bilirubin, UA Negative Negative - 4(70) +++ mg/dL [facility] Blood, UA Negative Negative - 50 Thomas/mcL [facility] Clarity, UA Clear [facility] Color, UA Yellow [facility] Glucose, UA Negative Negative - 1999(110) ++++ mg/dL [facility] Interpretation and review of laboratory results Normal [facility] Ketones, UA Negative Negative - 160(16) ++++ mg/dL [facility] Leukocytes, UA Negative Negative - 500+++ Van/mcL [facility] Nitrite, UA Negative Negative - Positive [facility] pH, UA 6 5 - 9 [facility] Protein, UA Negative Negative - 2000(20) ++++ mg/dL [facility] Spec Grav, UA 1.025 1 - 1.03 [facility] Urobilinogen, UA 0.2 0.2 - 12 mg/dL [facility] Glucose,Whole Bloodon 2023 Glucose [Mass/Vol] 80 mg/dL Normal 65-105 [facility] Glucose [Mass/Vol] 91 mg/dL Normal 65-105 [facility] CBCon 01-31-2024 Erythrocyte distribution width (RBC) [Ratio] 13.4 % Normal 11.8-14.4 [facility] Comment on above: Performed By: #### C BC #### [address] [address] Loss Prevention Consultant: Gideon Bullock MD Hematocrit (Bld) [Volume fraction] 35.3 % Low 36.3-47.1 [facility] Comment on above: Performed By: #### C BC #### [address] [address] Loss Prevention Consultant: Gideon Bullock MD Hemoglobin (Bld) [Mass/Vol] 11.3 g/dL Low 11.9-15.1 [facility] Comment on above: Performed By: #### C BC #### [address] [address] Loss Prevention Consultant: Gideon Bullock MD MCH (RBC) [Entitic mass] 28.7 pg Normal 25.2-33.5 [facility] Comment on above: Performed By: #### C BC #### [address] [address] Loss Prevention Consultant: Gideon Bullock MD MCHC (RBC) [Mass/Vol] 32.0 g/dL Normal 28.4-34.8 [facility] Comment on above: Performed By: #### C BC #### [address] [address] Loss Prevention Consultant: Gideon Bullock MD MCV (RBC) [Entitic vol] 89.6 fL Normal 82.6-102.9 [facility] Comment on above: Performed By: #### C BC #### [place] [id number] [place] [address] Loss Prevention Consultant: Gideon Bullock MD NRBC Automated 0.0 per 100 WBC Normal 0.0 [facility] Comment on above: Performed By: #### C BC #### [address] [address] Loss Prevention Consultant: Gideon Bullock MD Platelet mean volume (Bld) [Entitic vol] 11.0 fL Normal 8.1-13.5 [facility] Comment on above: Performed By: #### C BC #### [address] [address] Loss Prevention Consultant: Gideon Bullock MD Platelets (Bld) [#/Vol] 181 10*3/uL Normal 138-453 [facility] Comment on above: Performed By: #### C BC #### [address] [address] Loss Prevention Consultant: Gideon Bullock MD RBC (Bld) [#/Vol] 3.94 10*6/uL Low 3.95-5.11 [facility] Comment on above: Performed By: #### C BC #### [address] [address] Loss Prevention Consultant: Gideon Bullock MD WBC (Bld) [#/Vol] 8.8 10*3/uL Normal 3.5-11.3 [facility] Comment on above: Performed By: #### C BC #### [address] [address] Loss Prevention Consultant: Gideon Bullock MD Glucose,Whole Bloodon 2023 Glucose [Mass/Vol] 90 mg/dL Normal 65-105 [facility] Glucose [Mass/Vol] 94 mg/dL Normal 65-105 [facility] Glucose [Mass/Vol] 77 mg/dL Normal 65-105 [facility] Glucose [Mass/Vol] 135 mg/dL High 65-105 [facility] HISTOLOGY [facility] 01-31-2024 [facility] HISTOLOGY [facility] (NOTE) Path Number: [id number] -- Diagnosis -- Uterus and placenta (total weight 1085 g), postcesarean supracervical hysterectomy: Placenta accreta. third trimester villous development. Two-vessel umbilical cord. membranes with no specific abnormality. 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 Ovary and portion of fallopian tube, left, salpingo-oophorectomy: Ovary with physiologic changes, including corpus luteum. Portion of fallopian tube. Ovarian pedicle perivascular acute hemorrhage. Fermin Bautista. Electronically Signed Out tb05/02/0901/31/2024 Clinical Information Pre-Op Diagnosis: GESTATIONAL AGE 36 WEEKS 0 DAYS; G 5 P 3 Operative Findings: UTERUS, LEFT OVARY, PLACENTA, CORD, AND MEMBRANES Operation Performed: kb Source of Specimen A: UTERUS, LEFT OVARY, AND PLACENTA Gross Description YANI STEVENS, UNDESIGNATED Received fresh is a 1085 g, 18.0 x 16.0 x 3.5 cm placenta with attached membranes and umbilical cord and intimately associated everted uterus including separate tube and ovary (20 g) and rubbery irregular pink-luque fragment. The serosa is pink-luque and the cervix is absent. Identifiable endometrium is shaggy, pink-luque and 0.1 cm in thickness. The placenta covers at least 60% of the endometrial surface. Sectioning of the region where the placenta is adherent reveals no obvious extension into the myometrium (accreta). Sectioning of the placenta reveals dark red cut surfaces. The surface is purple-roque with a normal array of surface and subchorionic fibrin is marginal involving < 5% of the disc. The membranes are focally adherent to the endometrium and are pink-luque and mostly translucent with a marginal insertion. The 9.0 cm long x 1.5 cm in diameter umbilical cord segment has a paracentral insertion with two vessels upon sectioning. The separate portion of rubbery luque tissue (3.0 x 1.9 x 1.2 cm) has a rubbery pink-luque cut surface. The 4.5 x 2.5 x 1.8 cm intact ovary has a pink-luque external surface. Sectioning reveals a rubbery cut surface. In the surrounding soft tissue, there are markedly hemorrhagic cut surfaces with large tubular structures. The myometrium has a maximum thickness of 4.5 cm and displays a few luque-white, whorled myomatous nodules up to 1.5 cm. There is no hemorrhage or necrosis. Cassette summary: 1 full thickness endomyometrium away from adherent placenta including myomatous nodule, 2-5 placenta adherent to endometrium, 6-8 additional sections of placenta including membranes and separate portion of rubbery pink-luque tissue in 8, 9 section of ovary, 10 hemorrhagic tissue adjacent to ovary and sections of cord. tm Jessika Rose/kb2:01/30/2024 Microscopic Description 10 DOMENICA reviewed. Microscopic examination performed. Umbilical cord: Two-vessel cord Membranes: Unremarkable Meconium staining: No Infarcts: No Intervillous thrombi: No Subchorionic fibrin: Not significantly increased Villous maturation: Appropriate () Nucleated erythrocytes in villous capillaries: Not increased Other: Few microcalcifications; placental villi extended to, but not into myometrium. Processing Lab: [address] [id number] Interpretation Performed at [address] [id number] SURGICAL PATHOLOGY CONSULTATION Patient Name: YANI STEVENS [facility] Rec: [id number] [facility] ANATOMIC PATHOLOGY [address] [place] [phone] [facility] Original Ordering Provider: JUAN MCGARRY [facility] CBCon 01-30-2024 Erythrocyte distribution width (RBC) [Ratio] 13.4 % Normal 11.8-14.4 [facility] Comment on above: Performed By: #### T REP, PTT, PT #### [facility] [address] [place] [phone] Loss Prevention Consultant: Gideon Bullock MD Hematocrit (Bld) [Volume fraction] 35.8 % Low 36.3-47.1 [facility] Comment on above: Performed By: #### T REP, PTT, PT #### [facility] [address] [place] [address] Loss Prevention Consultant: Gideon Bullock MD Hemoglobin (Bld) [Mass/Vol] 11.7 g/dL Low 11.9-15.1 [facility] Comment on above: Performed By: #### T REP, PTT, PT #### [facility] [address] [place] [address] Loss Prevention Consultant: Gideon Bullock MD MCH (RBC) [Entitic mass] 28.6 pg Normal 25.2-33.5 [facility] Comment on above: Performed By: #### T REP, PTT, PT #### [address] [address] Loss Prevention Consultant: Gideon Bullock MD MCHC (RBC) [Mass/Vol] 32.7 g/dL Normal 28.4-34.8 [facility] Comment on above: Performed By: #### T REP, PTT, PT #### [address] [address] Loss Prevention Consultant: Gideon Bullock MD MCV (RBC) [Entitic vol] 87.5 fL Normal 82.6-102.9 [facility] Comment on above: Performed By: #### T REP, PTT, PT #### [address] [address] Loss Prevention Consultant: Gideon Bullock MD NRBC Automated 0.0 per 100 WBC Normal 0.0 [facility] Comment on above: Performed By: #### T REP, PTT, PT #### [facility] [address] [place] [address] Loss Prevention Consultant: Gideon Bullock MD Platelet mean volume (Bld) [Entitic vol] 11.1 fL Normal 8.1-13.5 [facility] Comment on above: Performed By: #### T REP, PTT, PT #### [email or web address] [address] [place] [address] 01219 Loss Prevention Consultant: Gideon Bullock MD Platelets (Bld) [#/Vol] 169 10*3/uL Normal 138-453 [facility] Comment on above: Performed By: #### T REP, PTT, PT #### [facility] [address] [place] [address] 62858 Loss Prevention Consultant: Gideon Bullock MD RBC (Bld) [#/Vol] 4.09 10*6/uL Normal 3.95-5.11 [facility] Comment on above: Performed By: #### T REP, PTT, PT #### [facility] [address] [place] [address] 64128 Loss Prevention Consultant: Gideon Bullock MD WBC (Bld) [#/Vol] 10.4 10*3/uL Normal 3.5-11.3 [facility] Comment on above: Performed By: #### T REP, PTT, PT #### [facility] [address] [place] [address] 03046 Loss Prevention Consultant: Gideon Bullock MD Glucose,Whole Bloodon 2023 Glucose [Mass/Vol] 113 mg/dL High 65-105 [facility] Glucose [Mass/Vol] 161 mg/dL High 65-105 [facility] Glucose [Mass/Vol] 119 mg/dL High 65-105 [facility] APTTon 01-29-2024 aPTT Coag (Bld) [Time] 28.6 s Normal 23.0-36.5 [facility] Comment on above: Result Comment: IV Heparin Therapy Range: 66.0-92.0 sec Performed By: #### T REP, PTT, PT #### [facility] [address] [place] [address] 44440 Loss Prevention Consultant: Gideon Bullock MD CBC with Diffon 01-29-2024 Abs. Basophil 0.03 k/uL Normal 0.00-0.20 [facility] Comment on above: Performed By: #### T REP, PTT, PT #### [facility] [address] [place] [address] 71284 Loss Prevention Consultant: Gideon Bullock MD Abs.Imm.Granulocyte 0.04 k/uL Normal 0.00-0.30 [facility] Comment on above: Performed By: #### T REP, PTT, PT #### [facility] [address] [place] [address] 00045 Loss Prevention Consultant: Gideon Bullock MD Abs.Neutrophil (Seg) 7.02 k/uL Normal 1.50-8.10 [facility] Comment on above: Performed By: #### T REP, PTT, PT #### [facility] [address] [place] [address] 70709 Loss Prevention Consultant: Gideon Bullock MD Basophils/100 WBC (Bld) 0 % Normal 0-2 [facility] Comment on above: Performed By: #### T REP, PTT, PT #### [facility] [address] [place] [address] 32096 Loss Prevention Consultant: Gideon Bullock MD Eosinophils (Bld) [#/Vol] 0.13 10*3/uL Normal 0.00-0.44 [facility] Comment on above: Performed By: #### T REP, PTT, PT #### [facility] [address] [place] [address] 55170 Loss Prevention Consultant: Gideon Bullock MD Eosinophils/100 WBC (Bld) 1 % Normal 1-4 [facility] Comment on above: Performed By: #### T REP, PTT, PT #### [facility] [address] [place] [address] 51864 Loss Prevention Consultant: Gideon Bullock MD Erythrocyte distribution width (RBC) [Ratio] 13.2 % Normal 11.8-14.4 [facility] Comment on above: Performed By: #### T REP, PTT, PT #### [facility] [address] [place] [address] 34594 Loss Prevention Consultant: Gideon Bullock MD Hematocrit (Bld) [Volume fraction] 37.6 % Normal 36.3-47.1 [facility] Comment on above: Performed By: #### T REP, PTT, PT #### [facility] [address] [place] [address] 78702 Loss Prevention Consultant: Gideon Bullock MD Hemoglobin (Bld) [Mass/Vol] 12.8 g/dL Normal 11.9-15.1 [facility] Comment on above: Performed By: #### T REP, PTT, PT #### [facility] [address] [place] [address] 45945 Loss Prevention Consultant: Gideon Bullock MD Immature granulocytes/100 WBC (Bld) 0 % Normal 0 [facility] Comment on above: Performed By: #### T REP, PTT, PT #### [facility] [address] [place] [address] 76793 Loss Prevention Consultant: Gideon Bullock MD Lymphocytes (Bld) [#/Vol] 1.74 10*3/uL Normal 1.10-3.70 [facility] Comment on above: Performed By: #### T REP, PTT, PT #### [facility] [address] [place] [address] 76931 Loss Prevention Consultant: Gideon Bullock MD Lymphocytes/100 WBC (Bld) 18 % Low 24-43 [facility] Comment on above: Performed By: #### T REP, PTT, PT #### [facility] [address] [place] [address] 25552 Loss Prevention Consultant: Gideon Bullock MD MCH (RBC) [Entitic mass] 28.6 pg Normal 25.2-33.5 [facility] Comment on above: Performed By: #### T REP, PTT, PT #### [facility] [address] [place] [address] 64768 Loss Prevention Consultant: Gideon Bullock MD MCHC (RBC) [Mass/Vol] 34.0 g/dL Normal 28.4-34.8 [facility] Comment on above: Performed By: #### T REP, PTT, PT #### [facility] [address] [place] [address] 54699 Loss Prevention Consultant: Gideon Bullock MD MCV (RBC) [Entitic vol] 83.9 fL Normal 82.6-102.9 [facility] Comment on above: Performed By: #### T REP, PTT, PT #### [facility] [address] [place] [address] 92124 Loss Prevention Consultant: Gideon Bullock MD Monocytes (Bld) [#/Vol] 0.85 10*3/uL Normal 0.10-1.20 [facility] Comment on above: Performed By: #### T REP, PTT, PT #### [facility] [address] [place] [address] 76011 Loss Prevention Consultant: Gideon Bullock MD Monocytes/100 WBC (Bld) 9 % Normal 3-12 [facility] Comment on above: Performed By: #### T REP, PTT, PT #### [facility] [address] [place] [address] 84970 Loss Prevention Consultant: Gideon Bullock MD Neutrophil (Seg) 72 % High 36-65 [facility] Comment on above: Performed By: #### T REP, PTT, PT #### [facility] [address] [place] [address] 13441 Loss Prevention Consultant: Gideon Bullock MD NRBC Automated 0.0 per 100 WBC Normal 0.0 [facility] Comment on above: Performed By: #### T REP, PTT, PT #### [facility] [address] [place] [address] 36381 Loss Prevention Consultant: Gideon Bullock MD Platelet mean volume (Bld) [Entitic vol] 11.4 fL Normal 8.1-13.5 [facility] Comment on above: Performed By: #### T REP, PTT, PT #### [facility] [address] [place] [address] 49554 Loss Prevention Consultant: Gideon Bullock MD Platelets (Bld) [#/Vol] 200 10*3/uL Normal 138-453 [facility] Comment on above: Performed By: #### T REP, PTT, PT #### [facility] [address] [place] [address] 49332 Loss Prevention Consultant: Gideon Bullock MD RBC (Bld) [#/Vol] 4.48 10*6/uL Normal 3.95-5.11 [facility] Comment on above: Performed By: #### T REP, PTT, PT #### [facility] [address] [place] [address] 17685 Loss Prevention Consultant: Gideon Bullock MD WBC (Bld) [#/Vol] 9.8 10*3/uL Normal 3.5-11.3 [facility] Comment on above: Performed By: #### T REP, PTT, PT #### [facility] [address] [place] [address] 81792 Loss Prevention Consultant: Gideon Bullock MD Comp Metabolic Profon 2023 Albumin [Mass/Vol] 3.8 g/dL Normal 3.5-5.2 [facility] Comment on above: Performed By: #### T REP, PTT, PT #### [facility] [address] [place] [address] 52896 Loss Prevention Consultant: Gideon Bullock MD Albumin/Glob Ratio 1.0 Normal 1.0-2.5 [facility] Comment on above: Performed By: #### T REP, PTT, PT #### [facility] [address] [place] [address] 63396 Loss Prevention Consultant: Gideon Bullock MD Alkaline Phos 141 U/L High 35-104 [facility] Comment on above: Performed By: #### T REP, PTT, PT #### [facility] [address] [place] [address] 40170 Loss Prevention Consultant: Gideon Bullock MD ALT [Catalytic activity/Vol] 26 U/L Normal 10-35 [facility] Comment on above: Performed By: #### T REP, PTT, PT #### [facility] [address] [place] [address] 81845 Loss Prevention Consultant: Gideon Bullock MD Anion gap [Moles/Vol] 10 mmol/L Normal 9-16 [facility] Comment on above: Performed By: #### T REP, PTT, PT #### [facility] [address] [place] [address] 20077 Loss Prevention Consultant: Gideon Bullock MD AST [Catalytic activity/Vol] 21 U/L Normal 10-35 [facility] Comment on above: Performed By: #### T REP, PTT, PT #### [facility] [address] [place] [address] 00858 Loss Prevention Consultant: Gideon Bullock MD Bilirubin [Mass/Vol] 0.3 mg/dL Normal 0.00-1.20 [facility] Comment on above: Performed By: #### T REP, PTT, PT #### [facility] [address] [place] [address] 96091 Loss Prevention Consultant: Gideon Bullock MD Calcium [Mass/Vol] 8.4 mg/dL Low 8.6-10.4 [facility] Comment on above: Performed By: #### T REP, PTT, PT #### [facility] [address] [place] [address] 33402 Loss Prevention Consultant: Gideon Bullock MD Chloride [Moles/Vol] 106 mmol/L Normal 98-107 [facility] Comment on above: Performed By: #### T REP, PTT, PT #### [facility] [address] [place] [address] 90274 Loss Prevention Consultant: Gideon Bullock MD CO2 [Moles/Vol] 22 mmol/L Normal 20-31 [facility] Comment on above: Performed By: #### T REP, PTT, PT #### [facility] [address] [place] [address] 14391 Loss Prevention Consultant: Gideon Bullock MD Creatinine [Mass/Vol] 0.4 mg/dL Low 0.50-0.90 [facility] Comment on above: Performed By: #### T REP, PTT, PT #### [address] [address] Loss Prevention Consultant: Gideon Bullock MD GFR/1.73 sq M.predicted among non-blacks MDRD (S/P/Bld) [Vol rate/Area] mL/min/{1.73_m2} Normal >60 [facility] Comment on above: Result Comment: [...] affects renal tubular secretion. Performed By: #### T REP, PTT, PT #### [facility] [address] [place] [address] 52849 Loss Prevention Consultant: Gideon Bullock MD Glucose [Mass/Vol] 105 mg/dL High 74-99 [facility] Comment on above: Performed By: #### T REP, PTT, PT #### [facility] [address] [place] [address] 22613 Loss Prevention Consultant: Gideon Bullock MD Potassium [Moles/Vol] 4.2 mmol/L Normal 3.7-5.3 [facility] Comment on above: Performed By: #### T REP, PTT, PT #### [facility] [address] [place] [address] 74885 Loss Prevention Consultant: Gideon Bullock MD Protein [Mass/Vol] 7.6 g/dL Normal 6.6-8.7 [facility] Comment on above: Performed By: #### T REP, PTT, PT #### [facility] [address] [place] [address] 47125 Loss Prevention Consultant: Gideon Bullock MD Sodium [Moles/Vol] 138 mmol/L Normal 136-145 [facility] Comment on above: Performed By: #### T REP, PTT, PT #### [facility] [address] [place] [address] 19640 Loss Prevention Consultant: Gideon Bullock MD Urea nitrogen [Mass/Vol] 6 mg/dL Normal 6-20 [facility] Comment on above: Performed By: #### T REP, PTT, PT #### [facility] [address] [place] [address] 78130 Loss Prevention Consultant: Gideon Bullock MD Drug Scr, Abuse, Uron 2023 Cannabinoid(s),Ur Positive Abnormal NEG [facility] Comment on above: Result Comment: Cuto ff: 50 ng/ml Performed By: #### T REP, PTT, PT #### [facility] [address] [place] [address] 84582 Loss Prevention Consultant: Gideon Bullock MD Interpretive Info Assay provides rapid clinical screening only. Presumptive positive results for Normal [facility] Comment on above: Result Comment: lega l purposes should be confirmed by another method. To request confirmation, please call the lab within 7 days of sample submission. Performed By: #### T REP, PTT, PT #### [facility] [address] [place] [address] 47142 Loss Prevention Consultant: Gideon Bullock MD Amphetamine(s),Ur Negative Normal NEG [facility] Comment on above: Result Comment: Cuto ff: 1000 ng/mL Performed By: #### T REP, PTT, PT #### [email or web address] [address] [place] [address] 09844 Loss Prevention Consultant: Gideon Bullock MD Barbiturate(s),Ur Negative Normal NEG [facility] Comment on above: Result Comment: Cuto ff: 200 ng/ml Performed By: #### T REP, PTT, PT #### [email or web address] [address] [place] [address] 72850 Loss Prevention Consultant: Gideon Bullock MD Benzodiazepine(s) Negative Normal NEG [facility] Comment on above: Result Comment: Cuto ff: 200 ng/ml Performed By: #### T REP, PTT, PT #### [email or web address] [address] [place] [address] 47237 Loss Prevention Consultant: Gideon Bullock MD Cocaine Metabolite Negative Normal NEG [facility] Comment on above: Result Comment: Cuto ff: 300 ng/ml Performed By: #### T REP, PTT, PT #### [email or web address] [address] [place] [address] 53657 Loss Prevention Consultant: Gideon Bullock MD Fentanyl, Urine Negative Normal NEG [facility] Comment on above: Result Comment: Cuto ff: 5 ng/ml Performed By: #### T REP, PTT, PT #### [email or web address] [address] [place] [address] 80509 Loss Prevention Consultant: Gidoen Bullock MD Methadone Ql (U) Negative Normal NEG [facility] Comment on above: Result Comment: Cuto ff: 300 ng/ml Performed By: #### T REP, PTT, PT #### [email or web address] [address] [place] [address] 16491 Loss Prevention Consultant: Gideon Bullock MD Opiate(s), Ur Negative Normal NEG [facility] Comment on above: Result Comment: Cuto ff: 300 ng/ml Performed By: #### T REP, PTT, PT #### [facility] [address] [place] [address] 75724 Loss Prevention Consultant: Gideon Bullock MD Oxycodone, Urine Negative Normal NEG [facility] Comment on above: Result Comment: Cuto ff: 100 ng/ml Performed By: #### T REP, PTT, PT #### [facility] [address] [place] [address] 57314 Loss Prevention Consultant: Gideon Bullock MD Phencyclidine, Ur Negative Normal NEG [facility] Comment on above: Result Comment: Cuto ff: 25 ng/ml Performed By: #### T REP, PTT, PT #### [address] [address] Loss Prevention Consultant: Gideon Bullock MD Glucose,Whole Bloodon 2023 Glucose [Mass/Vol] 126 mg/dL High 65-105 [facility] Glucose [Mass/Vol] 101 mg/dL Normal 65-105 [facility] PTon 01-29-2024 INR Coag (PPP) [Relative time] 1.0 {INR} Normal [facility] Comment on above: Result Comment: Therapeutic Range: Moderate Anticoagulant Intensity: INR = 2.0-3.0 High Anticoagulant Intensity: INR = 2.5-3.5 Performed By: #### T REP, PTT, PT #### [facility] [address] [place] [address] 94355 Loss Prevention Consultant: Gideon Bullock MD PT Coag (PPP) [Time] 13.4 s Normal 11.7-14.9 [facility] Comment on above: Performed By: #### T REP, PTT, PT #### [facility] [address] [place] [address] 11128 Loss Prevention Consultant: Gideon Bullock MD Surgical Pathology Reporton 10-08-2024 Surgical Pathology Report (NOTE) Path Number: [id number] -- Diagnosis -- Uterus and placenta (total weight 1085 g), postcesarean supracervical hysterectomy: Placenta accreta. third trimester villous development. Two-vessel umbilical cord. membranes with no specific abnormality. 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 Ovary and portion of fallopian tube, left, salpingo-oophorectomy: Ovary with physiologic changes, including corpus luteum. Portion of fallopian tube. Ovarian pedicle perivascular acute hemorrhage. Fermin Bautista. Electronically Signed Out 05/02/0901/31/2024 Clinical Information Pre-Op Diagnosis: GESTATIONAL AGE 36 WEEKS 0 DAYS; G 5 P 3 Operative Findings: UTERUS, LEFT OVARY, PLACENTA, CORD, AND MEMBRANES Operation Performed: kb Source of Specimen A: UTERUS, LEFT OVARY, AND PLACENTA Gross Description YANI STEVENS, UNDESIGNATED Received fresh is a 1085 g, 18.0 x 16.0 x 3.5 cm placenta with attached membranes and umbilical cord and intimately associated everted uterus including separate tube and ovary (20 g) and rubbery irregular pink-luque fragment. The serosa is pink-luque and the cervix is absent. Identifiable endometrium is shaggy, pink-luque and 0.1 cm in thickness. The placenta covers at least 60% of the endometrial surface. Sectioning of the region where the placenta is adherent reveals no obvious extension into the myometrium (accreta). Sectioning of the placenta reveals dark red cut surfaces. The surface is purple-roque with a normal array of surface and subchorionic fibrin is marginal involving < 5% of the disc. The membranes are focally adherent to the endometrium and are pink-luque and mostly translucent with a marginal insertion. The 9.0 cm long x 1.5 cm in diameter umbilical cord segment has a paracentral insertion with two vessels upon sectioning. The separate portion of rubbery luque tissue (3.0 x 1.9 x 1.2 cm) has a rubbery pink-luque cut surface. The 4.5 x 2.5 x 1.8 cm intact ovary has a pink-luque external surface. Sectioning reveals a rubbery cut surface. In the surrounding soft tissue, there are markedly hemorrhagic cut surfaces with large tubular structures. The myometrium has a maximum thickness of 4.5 cm and displays a few luque-white, whorled myomatous nodules up to 1.5 cm. There is no hemorrhage or necrosis. Cassette summary: 1 full thickness endomyometrium away from adherent placenta including myomatous nodule, 2-5 placenta adherent to endometrium, 6-8 additional sections of placenta including membranes and separate portion of rubbery pink-luque tissue in 8, 9 section of ovary, 10 hemorrhagic tissue adjacent to ovary and sections of cord. tm Jessika Milton/kb2:01/30/2024 Microscopic Description 10 DOMENICA reviewed. Microscopic examination performed. Umbilical cord: Two-vessel cord Membranes: Unremarkable Meconium staining: No Infarcts: No Intervillous thrombi: No Subchorionic fibrin: Not significantly increased Villous maturation: Appropriate () Nucleated erythrocytes in villous capillaries: Not increased Other: Few microcalcifications; placental villi extended to, but not into myometrium. Processing Lab: [address] [id number] Interpretation Performed at [address] [id number] SURGICAL PATHOLOGY CONSULTATION Patient Name: YANI STEVENS [facility] Rec: [id number] [facility] ANATOMIC PATHOLOGY [address] [place] [phone] Normal [facility] T.pallidum Ab Screenon 01-28 T.pallidum Ab Screen Non-Reactive Normal NR [facility] Comment on above: Result Comment: T. pallidum antibodies are not detected. There is no serological evidence of infection with T. pallidum (early primary syphilis cannot be excluded). Retest in 2-4 weeks if syphilis is clinically suspect. Performed By: #### T REP, PTT, PT #### [email or web address] [address] [place] [address] 43608 Loss Prevention Consultant: Gideon Bullock MD Type + Screenon 01-29-2024 Type + Screen Sample Expiration 02/01/2024,2359 Arm Band Number [id number] ABO/Rh(D) O POSITIVE Antibody Screen NEGATIVE Unit Number [id number] Blood Component Type Leukocyte Reduced Red Cell Unit Division 00 Status of Unit REL FROM ALLOC Transfusion Status OK TO TRANSFUSE Crossmatch Result COMPATIBLE Unit Number [id number] Blood Component Type Leukocyte Reduced Red Cell Unit Division 00 Status of Unit REL FROM ALLOC Transfusion Status OK TO TRANSFUSE Crossmatch Result COMPATIBLE Normal [facility] Comment on above: Performed By: #### C P, CDP, TROPI #### [place] [address] Loss Prevention Consultant: Gideon Bullock MD CBC with Diffon 01-28-2024 Abs. Basophil 0.03 k/uL Normal 0.00-0.20 [facility] Comment on above: Performed By: #### C P, CDP, TROPI #### [place] [address] Loss Prevention Consultant: Gideon Bullock MD Abs.Imm.Granulocyte 0.06 k/uL Normal 0.00-0.30 [facility] Comment on above: Performed By: #### C P, CDP, TROPI #### [place] [address] Loss Prevention Consultant: Gideon Bullock MD Abs.Neutrophil (Seg) 7.58 k/uL Normal 1.50-8.10 [facility] Comment on above: Performed By: #### C P, CDP, TROPI #### [place] [address] Loss Prevention Consultant: Gideon Bullock MD Basophils/100 WBC (Bld) 0 % Normal 0-2 [facility] Comment on above: Performed By: #### C P, CDP, TROPI #### [place] [address] Loss Prevention Consultant: Gideon Bullock MD Eosinophils (Bld) [#/Vol] 0.17 10*3/uL Normal 0.00-0.44 [facility] Comment on above: Performed By: #### C P, CDP, TROPI #### [address] [address] Loss Prevention Consultant: Gideon Bullock MD Eosinophils/100 WBC (Bld) 2 % Normal 1-4 [facility] Comment on above: Performed By: #### C P, CDP, TROPI #### [address] [address] Loss Prevention Consultant: Gideon Bullock MD Erythrocyte distribution width (RBC) [Ratio] 13.3 % Normal 11.8-14.4 [facility] Comment on above: Performed By: #### C P, CDP, TROPI #### [address] [address] Loss Prevention Consultant: Gideon Bullock MD Hematocrit (Bld) [Volume fraction] 36.2 % Low 36.3-47.1 [facility] Comment on above: Performed By: #### C P, CDP, TROPI #### [address] [address] Loss Prevention Consultant: Gideon Bullock MD Hemoglobin (Bld) [Mass/Vol] 12.4 g/dL Normal 11.9-15.1 [facility] Comment on above: Performed By: #### C P, CDP, TROPI #### [address] [address] Loss Prevention Consultant: Gideon Bullock MD Immature granulocytes/100 WBC (Bld) 1 % High 0 [facility] Comment on above: Performed By: #### C P, CDP, TROPI #### [facility] [address] [place] [address] 64500 Loss Prevention Consultant: Gideon Bullock MD Lymphocytes (Bld) [#/Vol] 2.16 10*3/uL Normal 1.10-3.70 [facility] Comment on above: Performed By: #### C P, CDP, TROPI #### [address] [address] Loss Prevention Consultant: Gideon Bullock MD Lymphocytes/100 WBC (Bld) 20 % Low 24-43 [facility] Comment on above: Performed By: #### C P, CDP, TROPI #### [address] [address] Loss Prevention Consultant: Gideon Bullock MD MCH (RBC) [Entitic mass] 28.8 pg Normal 25.2-33.5 [facility] Comment on above: Performed By: #### C P, CDP, TROPI #### [address] [address] Loss Prevention Consultant: Gideon Bullock MD MCHC (RBC) [Mass/Vol] 34.3 g/dL Normal 28.4-34.8 [facility] Comment on above: Performed By: #### C P, CDP, TROPI #### [place] [address] Loss Prevention Consultant: Gideon Bullock MD MCV (RBC) [Entitic vol] 84.2 fL Normal 82.6-102.9 [facility] Comment on above: Performed By: #### C P, CDP, TROPI #### [place] [address] Loss Prevention Consultant: Gideon Bullock MD Monocytes (Bld) [#/Vol] 0.90 10*3/uL Normal 0.10-1.20 [facility] Comment on above: Performed By: #### C P, CDP, TROPI #### [address] [address] Loss Prevention Consultant: Gideon Bullock MD Monocytes/100 WBC (Bld) 8 % Normal 3-12 [facility] Comment on above: Performed By: #### C P, CDP, TROPI #### [address] [place] [address] Loss Prevention Consultant: Gideon Bullock MD Neutrophil (Seg) 69 % High 36-65 [facility] Comment on above: Performed By: #### C P, CDP, TROPI #### [address] [place] [address] Loss Prevention Consultant: Gideon Bullock MD NRBC Automated 0.0 per 100 WBC Normal 0.0 [facility] Comment on above: Performed By: #### C P, CDP, TROPI #### [address] [address] Loss Prevention Consultant: Gideon Bullock MD Platelet mean volume (Bld) [Entitic vol] 11.2 fL Normal 8.1-13.5 [facility] Comment on above: Performed By: #### C P, CDP, TROPI #### [address] [address] Loss Prevention Consultant: Gideon Bullock MD Platelets (Bld) [#/Vol] 195 10*3/uL Normal 138-453 [facility] Comment on above: Performed By: #### C P, CDP, TROPI #### [address] [address] Loss Prevention Consultant: Gideon Bullock MD RBC (Bld) [#/Vol] 4.30 10*6/uL Normal 3.95-5.11 [facility] Comment on above: Performed By: #### C P, CDP, TROPI #### [address] [address] Loss Prevention Consultant: Gideon Bullock MD WBC (Bld) [#/Vol] 10.9 10*3/uL Normal 3.5-11.3 [facility] Comment on above: Performed By: #### C P, CDP, TROPI #### [address] [address] Loss Prevention Consultant: Gideon Bullock MD Comp Metabolic Profon 2023 Albumin [Mass/Vol] 3.6 g/dL Normal 3.5-5.2 [facility] Comment on above: Performed By: #### C P, CDP, TROPI #### [address] [address] Loss Prevention Consultant: Gideon Bullock MD Albumin/Glob Ratio 1.0 Normal 1.0-2.5 [facility] Comment on above: Performed By: #### C P, CDP, TROPI #### [address] [address] Loss Prevention Consultant: Gideon Bullock MD Alkaline Phos 128 U/L High 35-104 [facility] Comment on above: Performed By: #### C P, CDP, TROPI #### [address] [address] Loss Prevention Consultant: Gideon Bullock MD ALT [Catalytic activity/Vol] 16 U/L Normal 10-35 [facility] Comment on above: Performed By: #### C P, CDP, TROPI #### [address] [address] Loss Prevention Consultant: Gideon Bullock MD Anion gap [Moles/Vol] 12 mmol/L Normal 9-16 [facility] Comment on above: Performed By: #### C P, CDP, TROPI #### [facility] [address] [place] [address] Loss Prevention Consultant: Gideon Bullock MD AST [Catalytic activity/Vol] 16 U/L Normal 10-35 [facility] Comment on above: Performed By: #### C P, CDP, TROPI #### [facility] [address] [place] [address] Loss Prevention Consultant: Gideon Bullock MD Bilirubin [Mass/Vol] 0.2 mg/dL Normal 0.00-1.20 [facility] Comment on above: Performed By: #### C P, CDP, TROPI #### [address] [address] Loss Prevention Consultant: Gideon Bullock MD Calcium [Mass/Vol] 9.1 mg/dL Normal 8.6-10.4 [facility] Comment on above: Performed By: #### C P, CDP, TROPI #### [address] [address] Loss Prevention Consultant: Gideon Bullock MD Chloride [Moles/Vol] 104 mmol/L Normal 98-107 [facility] Comment on above: Performed By: #### C P, CDP, TROPI #### [address] [address] Loss Prevention Consultant: Gideon Bullock MD CO2 [Moles/Vol] 21 mmol/L Normal 20-31 [facility] Comment on above: Performed By: #### C P, CDP, TROPI #### [address] [address] Loss Prevention Consultant: Gideon Bullock MD Creatinine [Mass/Vol] 0.5 mg/dL Normal 0.50-0.90 [facility] Comment on above: Performed By: #### C P, CDP, TROPI #### [address] [address] Loss Prevention Consultant: Gideon Bullock MD GFR/1.73 sq M.predicted among non-blacks MDRD (S/P/Bld) [Vol rate/Area] mL/min/{1.73_m2} Normal >60 [facility] Comment on above: Result Comment: [...] renal tubular secretion. Performed By: #### C P, CDP, TROPI #### [facility] [address] [place] [address] Loss Prevention Consultant: Gideon Bullock MD Glucose [Mass/Vol] 74 mg/dL Normal 74-99 [facility] Comment on above: Performed By: #### C P, CDP, TROPI #### [facility] [address] [place] [address] Loss Prevention Consultant: Gideon Bullock MD Potassium [Moles/Vol] 3.8 mmol/L Normal 3.7-5.3 [facility] Comment on above: Performed By: #### C P, CDP, TROPI #### [address] [address] Loss Prevention Consultant: Gideon Bullock MD Protein [Mass/Vol] 6.9 g/dL Normal 6.6-8.7 [facility] Comment on above: Performed By: #### C P, CDP, TROPI #### [facility] [address] [place] [address] Loss Prevention Consultant: Gideon Bullock MD Sodium [Moles/Vol] 137 mmol/L Normal 136-145 [facility] Comment on above: Performed By: #### C P, CDP, TROPI #### [facility] [address] [place] [address] Loss Prevention Consultant: Gideon Bullock MD Urea nitrogen [Mass/Vol] 9 mg/dL Normal 6-20 [facility] Comment on above: Performed By: #### C P, CDP, TROPI #### [facility] [address] [place] [address] Loss Prevention Consultant: Gideon Bullock MD Glucose,Whole Bloodon 2023 Glucose [Mass/Vol] 105 mg/dL Normal 65-105 [facility] Protein,Tot,[place] Uron 2023 Creatinine [Mass/Vol] 35.8 mg/dL Normal 28.0-217.0 [facility] Comment on above: Performed By: #### C P, CDP, TROPI #### [address] [address] Loss Prevention Consultant: Gideon Bullock MD Tot Prot. Conc. <4 Normal [facility] Comment on above: Result Comment: No n ormal range established. Performed By: #### C P, CDP, TROPI #### [address] [address] Loss Prevention Consultant: Gideon Bullock MD TP/Cre Ratio Can not be calculated Normal [facility] Comment on above: Performed By: #### C P, CDP, TROPI #### [address] [address] Loss Prevention Consultant: Gideon Bullock MD Troponinon 01-28-2024 Troponin, High Sens <6 Normal 0-14 [facility] Comment on above: Result Comment: High Sensitivity Troponin values cannot be compared with other Troponin methodologies. Performed By: #### C P, CDP, TROPI #### [address] [address] Loss Prevention Consultant: Gideon Bullock MD Urinalysis macro (dipstick) panel (U)on 01-17-2024 Bilirubin, UA Negative Negative - 4(70) +++ mg/dL [facility] Blood, UA Negative Negative - 50 Thomas/mcL [facility] Clarity, UA Clear [facility] Color, UA Yellow [facility] Glucose, UA Negative Negative - 2000(110) ++++ mg/dL [facility] Interpretation and review of laboratory results Normal [facility] Ketones, UA Negative Negative - 160(16) ++++ mg/dL [facility] Leukocytes, UA Negative Negative - 500+++ Van/mcL [facility] Nitrite, UA Negative Negative - Positive [facility] pH, UA 6.5 5 - 9 [facility] Protein, UA Negative Negative - 2000(20) ++++ mg/dL [facility] Spec Grav, UA 1.020 1 - 1.03 [facility] Urobilinogen, UA 1.0 0.2 - 12 mg/dL [facility] COMPLETE BLOOD COUNTon 01-14 Erythrocyte distribution width (RBC) [Ratio] 13.3 % Normal 11.5-15.0 [facility] Comment on above: Performed By: #### C BC, CMP, 3084-1, 2532-0 #### [facility] ([id number]) [address] [place] [address] Hematocrit (Bld) [Volume fraction] 33.1 % Low 35-47 [facility] Comment on above: Performed By: #### Kaushik LÓPEZ CMP, 3084-1, 2532-0 #### [facility] ([id number]) [address] [place] [address] Hemoglobin (Bld) [Mass/Vol] 11.6 g/dL Low 11.7-15.5 [facility] Comment on above: Performed By: #### Kaushik LÓPEZ CMP, 4-, 2532-0 #### [facility] ([id number]) [address] [place] [address] MCH (RBC) [Entitic mass] 29.3 pg Normal 27-34 [facility] Comment on above: Performed By: #### Kaushik BC, CMP, 3084-, 2532-0 #### [facility] ([id number]) [address] [place] [address] MCHC (RBC) [Mass/Vol] 35.1 g/dL Normal 32-36 [facility] Comment on above: Performed By: #### Kaushik BC CMP, 3084-1, 2532-0 #### [facility] ([id number]) [address] [place] [address] MCV (RBC) [Entitic vol] 83 fL Normal 80-100 [facility] Comment on above: Performed By: #### Kaushik BC, CMP, 3084-1, 2532-0 #### [facility] ([id number]) [address] [place] [address] Platelet mean volume (Bld) [Entitic vol] 8.6 fL Normal 7-12 [facility] Comment on above: Performed By: #### Kaushik BC, CMP, 4-1, 2532-0 #### [facility] ([id number]) [address] [place] [address] Platelets (Bld) [#/Vol] 190 10*3/uL Normal 150-450 [facility] Comment on above: Performed By: #### Kaushik LÓPEZ, CMP, 3083-, 2-0 #### [facility] ([id number]) [address] [place] [address] RBC COUNT 3.97 X10E12/L Normal 3.80-5.20 [facility] Comment on above: Performed By: #### Kaushik BC, CMP, 3083-, 2532-0 #### [facility] ([id number]) [address] [place] [address] WBC (Bld) [#/Vol] 10.0 10*3/uL Normal 4.0-11.0 [facility] Comment on above: Performed By: #### Kaushik BC, CMP, 4-1, 2532-0 #### [facility] ([id number]) [address] [place] [address] COMPREHENSIVE METABOLIC PANE Jaylan 01-15-2024 Albumin [Mass/Vol] 2.9 g/dL Low 3.2-5.3 [facility] Comment on above: Performed By: #### Kaushik BC, CMP, 4-1, 2532-0 #### [facility] ([id number]) [address] [place] [address] ALP [Catalytic activity/Vol] 99 U/L Normal 39-130 [facility] Comment on above: Performed By: #### C BC, CMP, 3084-1, 2532-0 #### [facility] ([id number]) [address] [place] [address] ALT [Catalytic activity/Vol] 18 U/L Normal 0-31 [facility] Comment on above: Performed By: #### Kaushik BC, CMP, 3084-1, 2532-0 #### [facility] ([id number]) [address] [place] [address] Anion gap [Moles/Vol] 8 mmol/L Normal 5-15 [facility] Comment on above: Performed By: #### Kaushik BC, CMP, 3084-1, 2532-0 #### [facility] ([id number]) [address] [place] [address] AST [Catalytic activity/Vol] 17 U/L Normal 0-41 [facility] Comment on above: Performed By: #### Kaushik BC, CMP, 3084-1, 2532-0 #### [facility] ([id number]) [address] [place] [address] Bilirubin [Mass/Vol] 0.2 mg/dL Low 0.3-1.2 [facility] Comment on above: Performed By: #### C BC, CMP, 3084-1, 2532-0 #### [facility] ([id number]) [address] [place] [address] Calcium [Mass/Vol] 8.7 mg/dL Normal 8.5-10.5 [facility] Comment on above: Performed By: #### Kaushik BC, CMP, 3084-1, 2532-0 #### [facility] ([id number]) [address] [place] [address] Chloride [Moles/Vol] 107 mmol/L Normal 98-109 [facility] Comment on above: Performed By: #### Kaushik LÓPEZ CMP, 3083-, 253-0 #### [facility] ([id number]) [address] [place] [address] CO2 [Moles/Vol] 23 mmol/L Normal 22-32 [facility] Comment on above: Performed By: #### Kaushik LÓPEZ CMP, 3083-04, 2531-0 #### [facility] ([id number]) [address] [place] [address] Creatinine [Mass/Vol] 0.52 mg/dL Normal 0.40-1.00 [facility] Comment on above: Result Comment: METH OD TRACEABLE TO IDMS STANDARD Performed By: #### Kaushik LÓPEZ CMP, 3083-04, 2531-0 #### [facility] ([id number]) [address] [place] [address] eGFR (CKD-EPI) NON-RACE DEPENDENT >90 Normal >59 [facility] Comment on above: Result Comment: Reported eGFR is based on the CKD-EPI 2020 equation that does not use a race coefficient. Performed By: #### Kaushik LÓPEZ CMP, 3083-04, 2531-0 #### [facility] ([id number]) [address] [place] [address] Glucose [Mass/Vol] 106 mg/dL High 65-99 [facility] Comment on above: Performed By: #### Kaushik LÓPEZ CMP, 3083-04, 2531-0 #### [facility] ([id number]) [address] [place] [address] Potassium [Moles/Vol] 3.7 mmol/L Normal 3.5-5.0 [facility] Comment on above: Performed By: #### Kaushik LÓPEZ CMP, 3083-04, 2532-0 #### [facility] ([id number]) [address] [place] [address] Protein [Mass/Vol] 6.4 g/dL Normal 6.0-8.0 [facility] Comment on above: Performed By: #### Kaushik BC, CMP, 3084-1, 2532-0 #### [facility] ([id number]) [address] [place] [address] Sodium [Moles/Vol] 138 mmol/L Normal 134-146 [facility] Comment on above: Performed By: #### Kaushik BC, CMP, 3084-1, 2532-0 #### [facility] ([id number]) [address] [place] [address] Urea nitrogen [Mass/Vol] 9 mg/dL Normal 5-23 [facility] Comment on above: Performed By: #### Kaushik BC, CMP, 308-, 253-0 #### [facility] ([id number]) [address] [place] [address] LDH [Catalytic activity/Vol] on 01-15-2024 LDH 143 U/L Normal 100-235 [facility] Comment on above: Performed By: #### Curtis FERGUSON, CBCA #### [facility] ([id number]) [address] [place] [address] URIC ACIDon 01-15-2024 Urate [Mass/Vol] 4.5 mg/dL Normal 2.6-7.2 [facility] Comment on above: Performed By: #### Kaushik BC, CMP, 3084-1, 2532-0 #### [facility] ([id number]) [address] [place] [address] URINALYSISon 01-15-2024 Bilirubin Ql (U) Negative Normal NEG [facility] Comment on above: Performed By: #### Curtis FERGUSON, CBCA #### [facility] ([id number]) [address] [place] [address], [place] [address] BLOOD/HGB Trace Abnormal NEG [facility] Comment on above: Performed By: #### B MP, CBCA #### [facility] ([id number]) [address] [place] [address], [place] [address] Color (U) YELLOW Normal YELLOW [facility] Comment on above: Performed By: #### B MP, CBCA #### [facility] ([id number]) [address] [place] [address], [place] [address] Glucose Ql (U) Negative Normal NEG [facility] Comment on above: Performed By: #### B PHYLLIS, CBCA #### [facility] ([id number]) [address] [place] [address] [place] [address] Ketones Ql (U) Negative Normal NEG [facility] Comment on above: Performed By: #### B PHYLLIS, CBCA #### [facility] ([id number]) [address] [place] [address] [place] [address] Leukocyte esterase Test strip Ql (U) Negative Normal NEG [facility] Comment on above: Performed By: #### B PHYLLIS, CBCA #### [facility] ([id number]) [address] [place] [address], [place] [address] Nitrite Ql (U) Negative Normal NEG [facility] Comment on above: Performed By: #### B MP, CBCA #### [facility] ([id number]) [address] [place] [address] [place] [address] pH (U) 7.0 [pH] Normal 5.0-8.5 [facility] Comment on above: Performed By: #### B MP, CBCA #### [facility] ([id number]) [address] [place] [address] [place] [address] Protein Ql (U) Negative Normal NEG [facility] Comment on above: Performed By: #### B PHYLLIS, CBCA #### [facility] ([id number]) [address] [place] [address] R.B.CELLS 0 /hpf Normal 0-5 [facility] Comment on above: Performed By: #### B PHYLLIS, CBCA #### [facility] ([id number]) [address] [place] [address] Specific gravity (U) [Rel density] 1.015 Normal 1.003-1.035 [facility] Comment on above: Performed By: #### B PHYLLIS, CBCA #### [facility] ([id number]) [address] [place] [address] SQUAMOUS EPITHELIUM 2 to 5 Normal 0-5 [facility] Comment on above: Performed By: #### B PHYLLIS, CBCA #### [facility] ([id number]) [address] [place] [address] TURBIDITY CLEAR Normal CLEAR [facility] Comment on above: Performed By: #### B PHYLLIS, CBCA #### [facility] ([id number]) [address] [place] [address] Urobilinogen Qn (U) 0.2 {Manolo'U}/dL Normal <1.1 [facility] Comment on above: Performed By: #### B PHYLLIS, CBCA #### [facility] ([id number]) [address] [place] [address] W.B.CELLS 2 to 5 Normal 0-5 [facility] Comment on above: Performed By: #### B PHYLLIS, CBCA #### [facility] ([id number]) [address] [place] [address] Urinalysis macro (dipstick) panel (U)on 01-15-2024 Bilirubin, UA Negative Negative - 4(70) +++ mg/dL [facility] Blood, UA Positive Negative - 50 Thomas/mcL [facility] Comment on above: trace Clarity, UA Clear [facility] Color, UA Yellow [facility] Glucose, UA Negative Negative - 1999(110) ++++ mg/dL [facility] Interpretation and review of laboratory results Abnormal [facility] Ketones, UA Negative Negative - 160(16) ++++ mg/dL [facility] Leukocytes, UA Negative Negative - 500+++ Van/mcL [facility] Nitrite, UA Negative Negative - Positive [facility] pH, UA 6.5 5 - 9 [facility] Protein, UA Negative Negative - 1999(20) ++++ mg/dL [facility] Spec Grav, UA 1.020 1 - 1.03 [facility] Urobilinogen, UA 0.2 0.2 - 12 mg/dL [facility] Urinalysis macro (dipstick) panel (U)on 01-03-2024 Bilirubin, UA Negative Negative - 4(70) +++ mg/dL [facility] Blood, UA Negative Negative - 50 Thomas/mcL [facility] Clarity, UA Clear [facility] Color, UA Yellow [facility] Glucose, UA Negative Negative - 1999(110) ++++ mg/dL [facility] Interpretation and review of laboratory results Normal [facility] Ketones, UA Positive Negative - 160(16) ++++ mg/dL [facility] Comment on above: trace Leukocytes, UA Negative Negative - 500+++ Van/mcL [facility] Nitrite, UA Negative Negative - Positive [facility] pH, UA 6.0 5 - 9 [facility] Protein, UA Negative Negative - 1999(20) ++++ mg/dL [facility] Spec Grav, UA 1.015 1 - 1.03 [facility] Urobilinogen, UA 0.2 0.2 - 12 mg/dL [facility] Chlamydia/GC,DNA Ampon 12-31 Chlamydia Probe Negative Normal NEG [facility] Comment on above: Result Comment: [...] nucleic acid target. Performed By: #### T REP, PTT, PT #### [email or web address] [address] [place], [place] [phone] Loss Prevention Consultant: Gideon Bullock MD Gonorrhea Probe Negative Normal NEG [facility] Comment on above: Result Comment: [...] nucleic acid target. Performed By: #### T REP, PTT, PT #### [email or web address] [address] [place] [address] [phone] Loss Prevention Consultant: Gideon Bullock MD CBC with Auto Differentialon 12-31-2023 Basophils (Bld) [#/Vol] 0.03 10*3/uL [facility] Basophils/100 WBC (Bld) 0 % 0 - 2 % [facility] Eosinophils (Bld) [#/Vol] 0.18 10*3/uL [facility] Eosinophils/100 WBC (Bld) 2 % 1 - 4 % [facility] Erythrocyte distribution width (RBC) [Ratio] 13.1 % 11.8 - 14.4 % [facility] Hematocrit (Bld) [Volume fraction] 35.1 % Low 36.3 - 47.1 % [facility] Hemoglobin (Bld) [Mass/Vol] 11.9 g/dL 11.9 - 15.1 g/dL [facility] Immature granulocytes (Bld) [#/Vol] 0.04 10*3/uL [facility] Immature granulocytes/100 WBC (Bld) 1 % High 0 [facility] Interpretation and review of laboratory results Abnormal [facility] Lymphocytes/100 WBC (Bld) 23 % Low 24 - 43 % [facility] Lymphocytes/100 WBC (Bld) 1.81 % [facility] MCH (RBC) [Entitic mass] 28.9 pg 25.2 - 33.5 pg [facility] MCHC (RBC) [Mass/Vol] 33.9 g/dL 28.4 - 34.8 g/dL [facility] MCV (RBC) [Entitic vol] 85.2 fL 82.6 - 102.9 fL [facility] Monocytes/100 WBC (Bld) 8 % 3 - 12 % [facility] Monocytes/100 WBC (Bld) 0.62 % [facility] Neutrophils/100 WBC (Bld) 66 % High 36 - 65 % [facility] Nucleated RBC/100 WBC (Bld) [Ratio] 0.0 % 0.0 per 100 WBC [facility] Platelet mean volume (Bld) [Entitic vol] 10.9 fL 8.1 - 13.5 fL [facility] Platelets (Bld) [#/Vol] 175 10*3/uL [facility] RBC (Bld) [#/Vol] 4.12 10*6/uL 3.95 - 5.1 1 m/uL [facility] Segmented neutrophils/100 WBC (Bld) 5.25 % [facility] WBC other (Bld) [#/Vol] 7.9 [facility] CBC with Diffon 12-31-2023 Abs. Basophil 0.03 k/uL Normal 0.00-0.20 [facility] Comment on above: Performed By: #### C P, CDP, TROPI #### [facility] [address] [place], [place] [phone] Loss Prevention Consultant: Gideon Bullock MD Abs.Imm.Granulocyte 0.04 k/uL Normal 0.00-0.30 [facility] Comment on above: Performed By: #### C P, CDP, TROPI #### [facility] [address] [place], [place] [phone] Loss Prevention Consultant: Gideon Bullock MD Abs.Neutrophil (Seg) 5.25 k/uL Normal 1.50-8.10 [facility] Comment on above: Performed By: #### C P, CDP, TROPI #### [address] [address] Loss Prevention Consultant: Gideon Bullock MD Basophils/100 WBC (Bld) 0 % Normal 0-2 [facility] Comment on above: Performed By: #### C P, CDP, TROPI #### [facility] [address] [place] [address] Loss Prevention Consultant: Gideon Bullock MD Eosinophils (Bld) [#/Vol] 0.18 10*3/uL Normal 0.00-0.44 [facility] Comment on above: Performed By: #### C P, CDP, TROPI #### [address] [address] Loss Prevention Consultant: Gideon Bullock MD Eosinophils/100 WBC (Bld) 2 % Normal 1-4 [facility] Comment on above: Performed By: #### C P, CDP, TROPI #### [address] [address] Loss Prevention Consultant: Gideon Bullock MD Erythrocyte distribution width (RBC) [Ratio] 13.1 % Normal 11.8-14.4 [facility] Comment on above: Performed By: #### C P, CDP, TROPI #### [facility] [address] [place] [address] Loss Prevention Consultant: Gideon Bullock MD Hematocrit (Bld) [Volume fraction] 35.1 % Low 36.3-47.1 [facility] Comment on above: Performed By: #### C P, CDP, TROPI #### [facility] [address] [place] [address] Loss Prevention Consultant: Gideon Bullock MD Hemoglobin (Bld) [Mass/Vol] 11.9 g/dL Normal 11.9-15.1 [facility] Comment on above: Performed By: #### C P, CDP, TROPI #### [address] [address] Loss Prevention Consultant: Gideon Bullock MD Immature granulocytes/100 WBC (Bld) 1 % High 0 [facility] Comment on above: Performed By: #### C P, CDP, TROPI #### [address] [address] Loss Prevention Consultant: Gideon Bullock MD Lymphocytes (Bld) [#/Vol] 1.81 10*3/uL Normal 1.10-3.70 [facility] Comment on above: Performed By: #### C P, CDP, TROPI #### [address] [address] Loss Prevention Consultant: Gideon Bullock MD Lymphocytes/100 WBC (Bld) 23 % Low 24-43 [facility] Comment on above: Performed By: #### C P, CDP, TROPI #### [address] [address] Loss Prevention Consultant: Gideon Bullock MD MCH (RBC) [Entitic mass] 28.9 pg Normal 25.2-33.5 [facility] Comment on above: Performed By: #### C P, CDP, TROPI #### [address] [address] Loss Prevention Consultant: Gideon Bullock MD MCHC (RBC) [Mass/Vol] 33.9 g/dL Normal 28.4-34.8 [facility] Comment on above: Performed By: #### C P, CDP, TROPI #### [address] [address] Loss Prevention Consultant: Gideon Bullock MD MCV (RBC) [Entitic vol] 85.2 fL Normal 82.6-102.9 [facility] Comment on above: Performed By: #### C P, CDP, TROPI #### [address] [address] Loss Prevention Consultant: Gideon Bullock MD Monocytes (Bld) [#/Vol] 0.62 10*3/uL Normal 0.10-1.20 [facility] Comment on above: Performed By: #### C P, CDP, TROPI #### [address] [address] Loss Prevention Consultant: Gideon Bullock MD Monocytes/100 WBC (Bld) 8 % Normal 3-12 [facility] Comment on above: Performed By: #### C P, CDP, TROPI #### [address] [address] Loss Prevention Consultant: Gideon Bullock MD Neutrophil (Seg) 66 % High 36-65 [facility] Comment on above: Performed By: #### C P, CDP, TROPI #### [address] [address] Loss Prevention Consultant: Gideon Bullock MD NRBC Automated 0.0 per 100 WBC Normal 0.0 [facility] Comment on above: Performed By: #### C P, CDP, TROPI #### [address] [address] Loss Prevention Consultant: Gideon Bullock MD Platelet mean volume (Bld) [Entitic vol] 10.9 fL Normal 8.1-13.5 [facility] Comment on above: Performed By: #### C P, CDP, TROPI #### [address] [address] Loss Prevention Consultant: Gideon Bullock MD Platelets (Bld) [#/Vol] 175 10*3/uL Normal 138-453 [facility] Comment on above: Performed By: #### C P, CDP, TROPI #### [address] [address] Loss Prevention Consultant: Gideon Bullock MD RBC (Bld) [#/Vol] 4.12 10*6/uL Normal 3.95-5.11 [facility] Comment on above: Performed By: #### C P, CDP, TROPI #### [address] [address] Loss Prevention Consultant: Gideon Bullock MD WBC (Bld) [#/Vol] 7.9 10*3/uL Normal 3.5-11.3 [facility] Comment on above: Performed By: #### C P, CDP, TROPI #### [address] [address] Loss Prevention Consultant: Gideon Bullock MD Comp Metabolic Profon 2023 Albumin [Mass/Vol] 3.7 g/dL Normal 3.5-5.2 [facility] Comment on above: Performed By: #### T REP, PTT, PT #### [address] [address] Loss Prevention Consultant: Gideon Bullock MD Albumin/Glob Ratio 1.0 Normal 1.0-2.5 [facility] Comment on above: Performed By: #### T REP, PTT, PT #### [facility] [address] [place] [address] Loss Prevention Consultant: Gideon Bullock MD Alkaline Phos 105 U/L High 35-104 [facility] Comment on above: Performed By: #### T REP, PTT, PT #### [facility] [address] [place] [address] Loss Prevention Consultant: Gideon Bullock MD ALT [Catalytic activity/Vol] 18 U/L Normal 10-35 [facility] Comment on above: Performed By: #### T REP, PTT, PT #### [facility] [address] [place] [address] Loss Prevention Consultant: Gideon Bullock MD Anion gap [Moles/Vol] 10 mmol/L Normal 9-16 [facility] Comment on above: Performed By: #### T REP, PTT, PT #### [facility] [address] [place] [address] Loss Prevention Consultant: Gideon Bullock MD AST [Catalytic activity/Vol] 16 U/L Normal 10-35 [facility] Comment on above: Performed By: #### T REP, PTT, PT #### [facility] [address] [place] [address] Loss Prevention Consultant: Gideon Bullock MD Bilirubin [Mass/Vol] 0.2 mg/dL Normal 0.00-1.20 [facility] Comment on above: Performed By: #### T REP, PTT, PT #### [facility] [address] [place] [address] Loss Prevention Consultant: Gideon Bullock MD Calcium [Mass/Vol] 9.0 mg/dL Normal 8.6-10.4 [facility] Comment on above: Performed By: #### T REP, PTT, PT #### [facility] [address] [place] [address] Loss Prevention Consultant: Gideon Bullock MD Chloride [Moles/Vol] 106 mmol/L Normal 98-107 [facility] Comment on above: Performed By: #### T REP, PTT, PT #### [facility] [address] [place] [address] Loss Prevention Consultant: Gideon Bullock MD CO2 [Moles/Vol] 21 mmol/L Normal 20-31 [facility] Comment on above: Performed By: #### T REP, PTT, PT #### [facility] [address] [place] [address] Loss Prevention Consultant: Gideon Bullock MD Creatinine [Mass/Vol] 0.4 mg/dL Low 0.50-0.90 [facility] Comment on above: Performed By: #### T REP, PTT, PT #### [facility] [address] [place] [address] Loss Prevention Consultant: Gideon Bullock MD GFR/1.73 sq M.predicted among non-blacks MDRD (S/P/Bld) [Vol rate/Area] mL/min/{1.73_m2} Normal >60 [facility] Comment on above: Result Comment: [...] affects renal tubular secretion. Performed By: #### T REP, PTT, PT #### [email or web address] [address] [place] [address] Loss Prevention Consultant: Gideon Bullokc MD Glucose [Mass/Vol] 74 mg/dL Normal 74-99 [facility] Comment on above: Performed By: #### T REP, PTT, PT #### [email or web address] [address] [place] [address] Loss Prevention Consultant: Gideon Bullock MD Potassium [Moles/Vol] 3.9 mmol/L Normal 3.7-5.3 [facility] Comment on above: Performed By: #### T REP, PTT, PT #### [email or web address] [address] [place] [address] Loss Prevention Consultant: Gideon Bullock MD Protein [Mass/Vol] 6.9 g/dL Normal 6.6-8.7 [facility] Comment on above: Performed By: #### T REP, PTT, PT #### [email or web address] [address] [place] [address] [phone] Loss Prevention Consultant: Gideon Bullock MD Sodium [Moles/Vol] 137 mmol/L Normal 136-145 [facility] Comment on above: Performed By: #### T REP, PTT, PT #### [facility] [address] [place], [place] [phone] Loss Prevention Consultant: Gideon Bullock MD Urea nitrogen [Mass/Vol] 9 mg/dL Normal 6-20 [facility] Comment on above: Performed By: #### T REP, PTT, PT #### [email or web address] [address] [place] [address] Loss Prevention Consultant: Gideon Bullock MD [facility] URINALYSIS, WITH MICROS COPICon 12-31-2023 Interpretation and review of laboratory results [facility] BIL[facility]UB[facility], SEMIQT,UR Negative NEG [facility] BLOOD, URINE MODERATE Abnormal NEG [facility] CA[facility] 0 TO 2 HYALINE [facility] Comment on above: Reference range defi win for non-centrifuged specimen. PT CLARITY, URINE Clear CLEAR [facility] COL[facility] Yellow YEL [facility] EPITHELIAL CELLS 5 TO 10 [facility] GLUCOSE,SEMI-QNT,UR Negative NEG mg/dL [facility] KETONES, URINE Negative NEG mg/dL [facility] LEUKOCYTE ESTERASE TRACE Abnormal NEG [facility] NITRITE,UR Negative NEG [facility] PH,UR 6.0 5.0 - 8.0 [facility] PROTEIN, SEMI-QNT,UR Negative NEG mg/dL [facility] SPEC. GRAVITY,UR 1.021 1.005 - 1.030 [facility] URINE RBC'S 20 TO 50 [facility] Comment on above: Reference range defi win for non-centrifuged specimen. PT URINE WBC'S [address] [facility] UROBILINOGEN,UR Normal 0.0 - 1 .0 EU/dL [facility] Original Ordering Provider: CHERYLE REYES [facility] Protein / creatinine ratio, urineon 12-31-2023 Creatinine (U) [Mass/Vol] 123.0 mg/dL 28.0 - 217.0 mg/dL [facility] Protein (U) [Mass/Vol] 14 mg/dL [facility] Comment on above: No normal range esta blished. Urine Total Protein Creatinine Ratio 0.12 [facility] Protein,Tot,[place] Uron 2023 Creatinine [Mass/Vol] 123.0 mg/dL Normal 28.0-217.0 [facility] Comment on above: Performed By: #### C P, CDP, TROPI #### [address] [address] Loss Prevention Consultant: Gideon Bullock MD Tot Prot. Conc. 14 mg/dL [facility] Comment on above: Result Comment: No n ormal range established. Performed By: #### C P, CDP, TROPI #### [place] [address] Loss Prevention Consultant: Gideon Bullock MD TP/Cre Ratio 0.12 Normal [facility] Comment on above: Performed By: #### C P, CDP, TROPI #### [address] [address] Loss Prevention Consultant: Gideon Bullock MD Urinalysis w/ Microon 2023 Bacteria None Normal NONE [facility] Comment on above: Performed By: #### U RTPRT, UAMIC #### [address] [address] Loss Prevention Consultant: Gideon Bullock MD Bilirubin, SemiQt,Ur Negative Normal NEG [facility] Comment on above: Performed By: #### U RTPRT, UAMIC #### [address] [address] Loss Prevention Consultant: Gideon Bullock MD Blood, Urine MODERATE Abnormal NEG [facility] Comment on above: Performed By: #### U RTPRT, UAMIC #### [address] [address] Loss Prevention Consultant: Gideon Bullock MD Casts 0 TO 2 HYALINE Normal 0-8 [facility] Comment on above: Result Comment: Refe rence range defined for non-centrifuged specimen. Performed By: #### U RTPRT, UAMIC #### [address] [address] Loss Prevention Consultant: Gideon Bullock MD Clarity (U) Clear Normal CLEAR [facility] Comment on above: Performed By: #### U RTPRT, UAMIC #### [address] [address] Loss Prevention Consultant: Gideon Bullock MD Color (U) Yellow Normal YEL [facility] Comment on above: Performed By: #### U RTPRT, UAMIC #### [address] [address] Loss Prevention Consultant: Gideon Bullock MD Epithelial cells LM Ql (Urine sed) 5 TO 10 Normal 0-5 [facility] Comment on above: Performed By: #### U RTPRT, UAMIC #### [address] [address] Loss Prevention Consultant: Gideon Bullock MD Glucose Ql (U) Negative Normal NEG [facility] Comment on above: Performed By: #### U RTPRT, UAMIC #### [address] [address] Loss Prevention Consultant: Gideon Bullock MD Ketones Ql (U) Negative Normal NEG [facility] Comment on above: Performed By: #### U RTPRT, UAMIC #### [address] [address] Loss Prevention Consultant: Gideon Bullock MD Leukocyte esterase Test strip Ql (U) TRACE Abnormal NEG [facility] Comment on above: Performed By: #### U RTPRT, UAMIC #### [facility] [address] [place] [address] Loss Prevention Consultant: Gideon Bullock MD Nitrite,Ur Negative Normal NEG [facility] Comment on above: Performed By: #### U RTPRT, UAMIC #### [address] [address] Loss Prevention Consultant: Gideon Bullock MD PH,Ur 6.0 Normal 5.0-8.0 [facility] Comment on above: Performed By: #### U RTPRT, UAMIC #### [address] [address] Loss Prevention Consultant: Gideon Bullock MD Protein Ql (U) Negative Normal NEG [facility] Comment on above: Performed By: #### U RTPRT, UAMIC #### [address] [address] Loss Prevention Consultant: Gideon Bullock MD Spec. Smoaks,Ur 1.021 Normal 1.005-1.030 [facility] Comment on above: Performed By: #### U RTPRT, UAMIC #### [address] [address] Loss Prevention Consultant: Gideon Bullock MD Urine RBC's 20 TO 50 Normal 0-4 [facility] Comment on above: Result Comment: Refe rence range defined for non-centrifuged specimen. Performed By: #### U RTPRT, UAMIC #### [facility] [address] [place] [address] Loss Prevention Consultant: Gideon Bullock MD Urine WBC's 0 TO 2 Normal 0-5 [facility] Comment on above: Performed By: #### U RTPRT, UAMIC #### [facility] [address] [place] [address] Loss Prevention Consultant: Gideon Bullock MD Urobilinogen,Ur Normal Normal 0.0-1.0 [facility] Comment on above: Performed By: #### U RTPRT, UAMIC #### [facility] [address] [place] [address] Loss Prevention Consultant: Gideon Bullock MD Urinalysis with Microscopico n 12-31-2023 Bacteria LM Ql (Urine sed) None None [facility] Bilirubin Ql (U) Negative NEGATIVE [facility] Casts LM.LPF (Urine sed) [#/Area] 0 TO 2 HYALINE Reference range defined for non-centrifuged specimen. [facility] Clarity (U) Clear Clear [facility] Color (U) Yellow Yellow [facility] Epithelial cells LM.HPF (Urine sed) [#/Area] 5 TO 10 [facility] Glucose Test strip (U) [Mass/Vol] Negative NEGATIVE mg/dL [facility] Hemoglobin Auto test strip Ql (U) MODERATE Abnormal NEGATIVE [facility] Interpretation and review of laboratory results Abnormal [facility] Ketones (U) [Mass/Vol] Negative NEGATIVE mg/dL [facility] Leukocyte esterase Test strip Ql (U) TRACE Abnormal NEGATIVE [facility] Nitrite Ql (U) Negative NEGATIVE [facility] pH (U) 6.0 [pH] 5.0 - 8.0 [facility] Protein (U) [Mass/Vol] Negative NEGATIVE mg/dL [facility] RBC LM.HPF (Urine sed) [#/Area] 20 TO 50 [facility] Comment on above: Reference range defi win for non-centrifuged specimen. Specific gravity (U) [Rel density] 1.021 1.005 - 1.030 [facility] Urobilinogen Qn (U) Normal 0.0 - 1. 0 EU/dL [facility] WBC LM.HPF (Urine sed) [#/Area] 0 TO 2 [facility] Vaginitis DNA Probeon 2023 Litzy Negative Normal NEG [facility] Comment on above: Result Comment: for Litzy sp. Method of testing is a DNA probe intended for detection and identification of Litzy species, Gardnerella vaginalis, and Trichomonas vaginalis nucleic acid in vaginal fluid specimens from patients with symptoms of vaginitis/vaginosis. Performed By: #### T REP, PTT, PT #### [facility] [address] [place] [address] Loss Prevention Consultant: Gideon Bullock MD Gardnerella Positive Abnormal NEG [facility] Comment on above: Result Comment: for Gardnerella vaginalis Performed By: #### T REP, PTT, PT #### [facility] [address] [place] [address] Loss Prevention Consultant: Gideon Bullock MD Trichomonas Negative Normal NEG [facility] Comment on above: Result Comment: for Trichomonas Vaginalis Performed By: #### T REP, PTT, PT #### [email or web address] [address] [place] [address] Loss Prevention Consultant: Gideon Bullock MD Source .VAGINAL SWAB Normal [facility] Comment on above: Performed By: #### T REP, PTT, PT #### [email or web address] [address] [place] [address] Loss Prevention Consultant: Gideon Bullock MD Urinalysis macro (dipstick) panel (U)on 12-17-2023 Bilirubin, UA Negative Negative - 4(70) +++ mg/dL [facility] Blood, UA Negative Negative - 50 Thomas/mcL [facility] Clarity, UA Clear [facility] Color, UA Yellow [facility] Glucose, UA Negative Negative - 1999(110) ++++ mg/dL [facility] Interpretation and review of laboratory results Abnormal [facility] Ketones, UA Negative Negative - 160(16) ++++ mg/dL [facility] Leukocytes, UA Negative Negative - 500+++ Van/mcL [facility] Nitrite, UA Negative Negative - Positive [facility] pH, UA 5.5 5 - 9 [facility] Protein, UA Negative Negative - 2000(20) ++++ mg/dL [facility] Spec Grav, UA 1.020 1 - 1.03 [facility] Urobilinogen, UA 1.0 0.2 - 12 mg/dL [facility] No Panel Informationon 12-05 [facility] T4, Freeon 12-06-2023 Free T4 [Mass/Vol] 0.9 ng/dL Low 0.92 - 1. 68 ng/dL [facility] Interpretation and review of laboratory results Abnormal [facility] TSHon 12-06-2023 TSH Qn 1.48 m[IU]/L [facility] Thyroid Stim. Horm.on 2023 Thyroid Stim. Horm. 1.48 uIU/mL Normal 0.27-4.20 [facility] Comment on above: Performed By: #### T REP, PTT, PT #### [email or web address] [address] [place] [address] Loss Prevention Consultant: Gideon Bullock MD Thyroxine, Freeon 12-06-2023 Thyroxine, Free 0.9 ng/dL Low 0.92-1.68 [facility] Comment on above: Performed By: #### T REP, PTT, PT #### [email or web address] [address] [place] [address] Loss Prevention Consultant: Gideon Bullock MD No Panel InformationOrdered By: John Krishnamurthy on 11-08-2023 [facility] T4, FreeOrdered By: John Krishnamurthy on 11-08-2023 Free T4 [Mass/Vol] 0.9 ng/dL Low 0.92 - 1. 68 ng/dL [facility] Interpretation and review of laboratory results Abnormal [facility] TSHon 11-08-2023 TSH Qn 1.66 m[IU]/L [facility] Thyroid Stim. Horm.on 2023 Thyroid Stim. Horm. 1.66 uIU/mL Normal 0.27-4.20 [facility] Comment on above: Performed By: #### F T4, TSH #### [email or web address] [address] [place] [address] Loss Prevention Consultant: Gideon Bullock MD Thyroxine, Freeon 11-08-2023 Thyroxine, Free 0.9 ng/dL Low 0.92-1.68 [facility] Comment on above: Performed By: #### F T4, TSH #### [facility] [address] [place] [address] Loss Prevention Consultant: Gideon Bullock MD PT Mutation [id number] 10-13-19 24 PT [id number] VARIANT Negative Normal [facility] Comment on above: Result Comment: (NOT E) Indication for testing: Assess genetic risk for thrombosis. NEGATIVE: The Factor II, prothrombin M43405I mutation, was not detected. Other causes of [...] Dsouza, Ph.D. 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 PATHOGENIC VARIANT TESTED: F2 c.*97G>A (H49718C). CLINICAL SENSITIVITY FOR VENOUS THROMBOSIS: Approximately 10 percent. METHODOLOGY: Polymerase chain reaction and fluorescence monitoring. ANALYTICAL SENSITIVITY AND SPECIFICITY: 99 percent. LIMITATIONS: Diagnostic errors can occur due to rare sequence variations. F2 gene variants, other than c.*97G>A (Z13270R), will not be detected. This test was developed and its performance characteristics determined by [facility]. It has not been cleared or approved by the [place] Food and Drug Administration. This test was performed in a CLIA certified laboratory and is intended for clinical purposes. Counseling and informed consent are recommended for genetic testing. Consent forms are available online. Performed By: [facility] [address] [place] [id number] Senior Cost Accountant: Andrew Duran MD, PhD CLIA Number: [id number] Performed By: #### C P, CDP, TROPI #### [address] [id number] Loss Prevention Consultant: Gideon Bullock MD PT PCR SPECIMEN Whole Blood Normal [facility] Comment on above: Performed By: #### C P, CDP, TROPI #### [facility] [address] [place] [address] [phone] Loss Prevention Consultant: Gideon Bullock MD Factor V Mutationon 10-12-19 24 F 5 SPECIMEN Whole Blood Normal [facility] Comment on above: Performed By: #### C P, CDP, TROPI #### [facility] [address] [place] [address] [phone] Loss Prevention Consultant: Gideon Bullock MD FACTOR 5 MUTATION Negative Normal [facility] Comment on above: Result Comment: (NOT E) Indication for testing: Assess genetic risk for thrombosis. NEGATIVE: The factor V Leiden variant, c.1601G>A; p.[id number], was not detected. This does not exclude [...] function in the F5 gene variant c.1601G>A (p.[id number]). Legacy nomenclature: [id number] (1691G>A) CLINICAL SENSITIVITY: 20-50 percent of individuals with an isolated VTE have the FVL variant. METHODOLOGY: Polymerase chain reaction and fluorescence monitoring. ANALYTICAL SENSITIVITY AND SPECIFICITY: 99 percent. LIMITATIONS: Diagnostic errors can occur due to rare sequence variations. F5 gene mutations, other than p.Nfe249Lrg, will not be detected. This test was developed and its performance characteristics determined by [facility]. It has not been cleared or approved by the [place] Food and Drug Administration. This test was performed in a CLIA certified laboratory and is intended for clinical purposes. Counseling and informed consent are recommended for genetic testing. Consent forms are available online. Performed By: [facility] [address] [place] [address] Senior Cost Accountant: Andrew Duran MD, PhD CLIA Number: [id number] Performed By: #### C ROLO More TROPI #### [place] [address] Loss Prevention Consultant: Gideon Bullock MD MTHFR Gene Mutationon 2023 MTHFR 1286 A>C Mut Heterozygous Normal [facility] Comment on above: Performed By: #### C P, CDP, TROPI #### [email or web address] [address] [place], [place] [phone] Loss Prevention Consultant: Gideon Bullock MD MTHFR 655C>T Mut Negative Normal [facility] Comment on above: Performed By: #### C P, CDP, TROPI #### [email or web address] [address] [place], [place] [phone] Loss Prevention Consultant: Gideon Bullock MD MTHFR Interpretation See Note Normal [facility] Comment on above: Result Comment: (NOT E) Indication for testing: Determine genetic contribution to hyperhomocysteinemia. 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 The [employer] Practice Guidelines indicate [...] a contributing factor to hyperhomocysteinemia. Variants Tested: c.665C>T(p.Hcb474Qjv) and c.1286A>C(p.Mio365Hxo). (legacy names C677T and V6294O, respectively). Clinical Sensitivity: Undefined; hyperhomocysteinemia is caused [...] developed and its performance characteristics determined by [facility]. It has not been cleared or approved by the [place] Food and Drug Administration. This test was performed in a CLIA certified laboratory and is intended for clinical purposes. Counseling and informed consent are recommended for genetic testing. Consent forms are available online. Performed By: [facility] [address] [place] [address] Senior Cost Accountant: Andrew Duran MD, PhD CLIA Number: [id number] Performed By: #### C P, CDP, TROPI #### [facility] [address] [place] [address] Loss Prevention Consultant: Gideon Bullock MD MTHFR SPECIMEN Whole Blood Normal [facility] [facility] Comment on above: Performed By: #### C P, CDP, TROPI #### [facility] [address] [place] [address] Loss Prevention Consultant: Gideon Bullock MD AFP, Maternalon 10-11-2023 Determined by Ultrasound Normal [facility] Comment on above: Performed By: #### C P, CDP, TROPI #### [facility] [address] [place] [address] 7[address]11 Loss Prevention Consultant: Gideon Bullock MD Due Date SEE NOTE Normal [facility] Comment on above: Result Comment: Resu lts for Estimated Due Date: 02 26 24 Performed By: #### C P, CDP, TROPI #### [facility] [address] [place] [address] [phone] Loss Prevention Consultant: Gideon Bullock MD Family History No Normal [facility] Comment on above: Performed By: #### C P, CDP, TROPI #### [address] [address] Loss Prevention Consultant: Gideon Bullock MD Gestat Age (exact) 20 wks, 0 days Normal [facility] Comment on above: Performed By: #### C P, CDP, TROPI #### [facility] [address] [place] [address] 28079 Loss Prevention Consultant: Gideon Bullock MD Ins Req Matern Diab Yes [facility] Comment on above: Performed By: #### C P, CDP, TROPI #### [address] [address] Loss Prevention Consultant: Gideon Bullock MD Interpretation Screen Neg [facility] Comment on above: Result Comment: (NOT E) [...] developed and its performance characteristics determined by [facility]. It has not been cleared or approved by the [place] Food and Drug Administration. This test was performed in a CLIA certified laboratory and is intended for clinical purposes. Performed By: #### C P, CDP, TROPI #### [address] [address] Loss Prevention Consultant: Gideon Bullock MD [age] [facility] Comment on above: Performed By: #### C P, CDP, TROPI #### [address] [address] Loss Prevention Consultant: Gideon Bullock MD Maternal Race Nonblack [facility] Comment on above: Performed By: #### C P, CDP, TROPI #### [address] [address] Loss Prevention Consultant: Gideon Bullock MD Maternal Weight 298.0 lbs. Normal [facility] Comment on above: Performed By: #### C P, CDP, TROPI #### [address] [address] Loss Prevention Consultant: Gideon Bullock MD MoM for AFP 1.29 Normal [facility] Comment on above: Performed By: #### C P, CDP, TROPI #### [address] [address] Loss Prevention Consultant: Gideon Bullock MD Number of Fetuses Rodriguez Normal [facility] Comment on above: Performed By: #### C P, CDP, TROPI #### [address] [address] Loss Prevention Consultant: Gideon Bullock MD Patient's AFP 39 ng/mL Normal [facility] Comment on above: Performed By: #### C P, CDP, TROPI #### [address] [address] Loss Prevention Consultant: Gideon Bullock MD Smoking No Normal [facility] Comment on above: Performed By: #### C P, CDP, TROPI #### [address] [address] Loss Prevention Consultant: Gideon Bullock MD Specimen See Note Normal [facility] Comment on above: Result Comment: (NOT E) Initial sample Performed By: [facility] [address] [place] [address] Senior Cost Accountant: Andrew Duran MD, PhD CLIA Number: [id number] Performed By: #### C P, CDP, TROPI #### [address] [address] Loss Prevention Consultant: Gideon Bullock MD AFP, Maternalon 10-10-2023 Current Smoking NO [facility] Comment on above: Performed By: #### C P, CDP, TROPI #### [facility] [address] [place] [address] 22699 Loss Prevention Consultant: Gideon Bullock MD Dating [place] [facility] Comment on above: Performed By: #### C P, CDP, TROPI #### [facility] [address] [place] [address] 14992 Loss Prevention Consultant: Gideon Bullock MD Diabetic YES [facility] Comment on above: Performed By: #### C P, CDP, TROPI #### [facility] [address] [place] [address] 90208 Loss Prevention Consultant: Gideon Bullock MD Donor Egg NO [facility] Comment on above: Performed By: #### C P, CDP, TROPI #### [facility] [address] [place] [address] 10749 Loss Prevention Consultant: Gideon Bullock MD Estimated Due Date [id number] [facility] Comment on above: Performed By: #### C P, CDP, TROPI #### [facility] [address] [place] [address] Loss Prevention Consultant: Gideon Bullock MD Family History NONE [facility] Comment on above: Performed By: #### C P, CDP, TROPI #### [facility] [address] [place] [address] 50796 Loss Prevention Consultant: Gideon Bullock MD In Vitro Fertalizat NO [facility] Comment on above: Performed By: #### C P, CDP, TROPI #### [facility] [address] [place] [address] 49576 Loss Prevention Consultant: Gideon Bullock MD LMP date [facility] Comment on above: Performed By: #### C P, CDP, TROPI #### [address] [address] Loss Prevention Consultant: Gideon Bullock MD Maternal date [facility] Comment on above: Performed By: #### C P, CDP, TROPI #### [address] [address] Loss Prevention Consultant: Gideon Bullock MD Maternal Weight 298 [facility] Comment on above: Performed By: #### C P, CDP, TROPI #### [address] [address] Loss Prevention Consultant: Gideon Bullock MD Monochorionic Twins NO [facility] Comment on above: Performed By: #### C P, CDP, TROPI #### [address] [address] Loss Prevention Consultant: Gideon Bullock MD Patient Weight Units LB [facility] Comment on above: Performed By: #### C P, CDP, TROPI #### [address] [address] Loss Prevention Consultant: Gideon Bullock MD Race (Maternal) NON BLACK [facility] Comment on above: Performed By: #### C P, CDP, TROPI #### [address] [address] Loss Prevention Consultant: Gideon Bullock MD Repeat Specimen NO [facility] Comment on above: Performed By: #### C P, CDP, TROPI #### [address] [address] Loss Prevention Consultant: Gideon Bullock MD Valproic/Carbamazep NONE [facility] Comment on above: Performed By: #### C P, CDP, TROPI #### [address] [address] Loss Prevention Consultant: Gideon Bullock MD Antithrombin III Kasia 10-09 Antithrombin III Act 110 % Normal 83-122 [facility] Comment on above: Result Comment: Patients receiving Hirudin may have a falsely decreased Antitrombin III Activity. Performed By: #### C P, CDP, TROPI #### [facility] [address] [place] [address] Loss Prevention Consultant: Gideon Bullock MD Lupus Anticoagulanton 2023 Anticardiolipin IgA 1.8 APL Normal 0.0-14.0 [facility] Comment on above: Result Comment: Reference Range: <14.0 Negative 14.0-20.0 Equivocal >20.0 Positive When results are Equivocal, it is recommended to retest after 4-6 weeks. Performed By: #### C P, CDP, TROPI #### [address] [address] Loss Prevention Consultant: Gideon Bullock MD Anticardiolipin IgG <0.5 Normal 0.0-10.0 [facility] Comment on above: Result Comment: Reference Range: <10.0 Negative 10.0-40.0 Equivocal >40.0 Positive Performed By: #### C P, CDP, TROPI #### [address] [address] Loss Prevention Consultant: Gideon Bullock MD Anticardiolipin IgM <0.8 Normal 0.0-10.0 [facility] Comment on above: Result Comment: Reference Range: <10.0 Negative 10.0-40.0 Equivocal >40.0 Positive Performed By: #### C P, CDP, TROPI #### [facility] [address] [place] [address]88 Loss Prevention Consultant: Gideon Bullock MD Dilute Heladio Viper Negative Normal NLUP [facility] Comment on above: Performed By: #### C P, CDP, TROPI #### [facility] [address] [place] [address] Loss Prevention Consultant: Gideon Bullock MD Protein C Activityon 024 Protein C Activity 136 % Normal >80 [facility] Comment on above: Result Comment: [...] levels of Factor VIII. Performed By: #### C PROLO, TROPI #### [email or web address] [address] [place] [address] Loss Prevention Consultant: Gideon Bullock MD Protein S Activityon 024 Protein S Activity 68 % Normal 59-130 [facility] Comment on above: Result Comment: [...] levels of Factor VIII. Performed By: #### C PROLO, TROPI #### [email or web address] [address] [place] [address] [phone] Loss Prevention Consultant: Gideon Bullock MD Hemoglobin A1Con 10-09-2023 Glucose [Mass/Vol] 103 mg/dL Normal [facility] Comment on above: Result Comment: The ADA and AACC recommend providing the estimated average glucose result to permit better patient understanding of their HBA1c result. Performed By: #### C P, CDP, TROPI #### [employer] [facility] [address] [place] [address] Loss Prevention Consultant: Gideon Bullock MD HbA1c (Bld) [Mass fraction] 5.2 % Normal 4.0-6.0 [facility] Comment on above: Performed By: #### C P, CDP, TROPI #### [address] [address] Loss Prevention Consultant: Gideon Bullock MD Homocysteineon 10-09-2023 Homocysteine 4.3 umol/L Normal 0.0-15.0 [facility] Comment on above: Performed By: #### C P, CDP, TROPI #### [address] [address] Loss Prevention Consultant: Gideon Bullock MD Lupus Anticoagulanton 2023 aPTT Coag (Bld) [Time] 27.5 s Normal 23.0-36.5 [facility] Comment on above: Result Comment: IV Heparin Therapy Range: 66.0-92.0 sec Performed By: #### C P, CDP, TROPI #### [address] [address] Loss Prevention Consultant: Gideon Bullock MD INR Coag (PPP) [Relative time] 1.0 {INR} Normal [facility] Comment on above: Result Comment: Therapeutic Range: Moderate Anticoagulant Intensity: INR = 2.0-3.0 High Anticoagulant Intensity: INR = 2.5-3.5 Performed By: #### C P, CDP, TROPI #### [address] [address] Loss Prevention Consultant: Gideon Bullock MD PT Coag (PPP) [Time] 13.1 s Normal 11.7-14.9 [facility] Comment on above: Performed By: #### C P, CDP, TROPI #### [address] [address] Loss Prevention Consultant: Gideon Bullock MD Protein,Tot,Bassett Uron 2023 Creatinine [Mass/Vol] 120.0 mg/dL Normal 28.0-217.0 [facility] Comment on above: Performed By: #### T REP, PTT, PT #### [address] [address] Loss Prevention Consultant: Gideon Bullock MD Tot Prot. Conc. 10 mg/dL Normal [facility] Comment on above: Result Comment: No n ormal range established. Performed By: #### T REP, PTT, PT #### [facility] [address] [place] [address] Loss Prevention Consultant: Gideon Bullock MD TP/Cre Ratio 0.08 Normal [facility] Comment on above: Performed By: #### T REP, PTT, PT #### [facility] [address] [place] [address] Loss Prevention Consultant: Gideon Bullock MD Thyroid Stim. Horm.on 2023 Thyroid Stim. Horm. 2.35 uIU/mL Normal 0.27-4.20 [facility] Comment on above: Performed By: #### C P, CDP, TROPI #### [address] [address] Loss Prevention Consultant: Gideon Bullock MD Thyroxine, Freeon 10-09-2023 Thyroxine, Free 0.9 ng/dL Low 0.92-1.68 [facility] Comment on above: Performed By: #### C P, CDP, TROPI #### [address] [address] Loss Prevention Consultant: Gideon Bullock MD XR FOOT RT MIN [...] Blas MD on 09/10/2023 12:57 PM Normal [facility] MR BRAIN W WO CONTon 024 [...] Rice MD on 06/14/2023 8:30 AM Normal [facility] BASIC METABOLIC PANLon 05-16 Anion gap [Moles/Vol] 10 mmol/L Normal 5-15 [facility] Comment on above: Performed By: #### B PHYLLIS CBCA #### [facility] ([id number]) [address] [place] [address]39 Calcium [Mass/Vol] 8.9 mg/dL Normal 8.5-10.5 [facility] Comment on above: Performed By: #### B PHYLLIS, CBCA #### [facility] ([id number]) [address] [place] [address]161 Chloride [Moles/Vol] 107 mmol/L Normal 98-109 [facility] Comment on above: Performed By: #### B JOSE FERGUSON #### [facility] ([id number]) [address] [place] [address] 23013 CO2 [Moles/Vol] 18 mmol/L Low 22-32 [facility] Comment on above: Performed By: #### B JOSE FERGUSON #### [facility] ([id number]) [address] [place] [address] 12200 Creatinine [Mass/Vol] 0.58 mg/dL Normal 0.40-1.00 [facility] Comment on above: Result Comment: METH OD TRACEABLE TO IDMS STANDARD Performed By: #### B JOES FERGUSON #### [facility] ([id number]) [address] [place] [address] 67661 eGFR (CKD-EPI) NON-RACE DEPENDENT >90 Normal >59 [facility] Comment on above: Result Comment: Reported eGFR is based on the CKD-EPI 2020 equation that does not use a race coefficient. Performed By: #### B JOSE FERGUSON #### [facility] ([id number]) [address] [place] [address] 39757 Glucose [Mass/Vol] 109 mg/dL High 65-99 [facility] Comment on above: Performed By: #### B JOSE FERGUSON #### [facility] ([id number]) [address] [place] [address]20 Potassium [Moles/Vol] 3.3 mmol/L Low 3.5-5.0 [facility] Comment on above: Performed By: #### B JOSE FERGUSON #### [facility] ([id number]) [address] [place] [address]508 Sodium [Moles/Vol] 135 mmol/L Normal 134-146 [facility] Comment on above: Performed By: #### B JOSE FERGUSON #### [facility] ([id number]) [address] [place] [address] 43954 Urea nitrogen [Mass/Vol] 16 mg/dL Normal 5-23 [facility] Comment on above: Performed By: #### B MP, CBCA #### [facility] ([id number]) [address] [place] [address] 16070 CBC AND AUTO DIFFon 05-16-19 24 ABSOLUTE BASOPHIL 0.1 X10E9/L Normal 0.0-0.2 [facility] Comment on above: Performed By: #### B MP, CBCA #### [facility] ([id number]) [address] [place] [address]678 ABSOLUTE NEUTROPHIL 4.6 X10E9/L Normal 1.5-6.6 [facility] Comment on above: Performed By: #### B MP, CBCA #### [facility] ([id number]) [address] [place] [address] 06893 Basophils/100 WBC (Bld) 0.7 % Normal [facility] Comment on above: Performed By: #### B MP, CBCA #### [facility] ([id number]) [address] [place] [address] 6[address]14 Eosinophils (Bld) [#/Vol] 0.3 10*3/uL Normal 0.0-0.4 [facility] Comment on above: Performed By: #### B MP, CBCA #### [facility] ([id number]) [address] [place] [address] 58867 Eosinophils/100 WBC (Bld) 4.4 % Normal [facility] Comment on above: Performed By: #### B MP, CBCA #### [facility] ([id number]) [address] [place] [address] 85732 Erythrocyte distribution width (RBC) [Ratio] 13.3 % Normal 11.5-15.0 [facility] Comment on above: Performed By: #### B MP, CBCA #### [facility] ([id number]) [address] [place] [address] 30545 Hematocrit (Bld) [Volume fraction] 40.5 % Normal 35-47 [facility] Comment on above: Performed By: #### B MP, CBCA #### [facility] ([id number]) [address] [place] [address] 77351 Hemoglobin (Bld) [Mass/Vol] 13.8 g/dL Normal 11.7-15.5 [facility] Comment on above: Performed By: #### B PHYLLIS, CBCA #### [facility] ([id number]) [address] [place] [address] 28191 Lymphocytes (Bld) [#/Vol] 2.0 10*3/uL Normal 1.0-3.5 [facility] Comment on above: Performed By: #### B PHYLLIS, CBCA #### [facility] ([id number]) [address] [place] [address] 65142 Lymphocytes/100 WBC (Bld) 26.3 % Normal [facility] Comment on above: Performed By: #### B PHYLLIS, CBCA #### [facility] ([id number]) [address] [place] [address] 18440 MCH (RBC) [Entitic mass] 27.9 pg Normal 27-34 [facility] Comment on above: Performed By: #### B PHYLLIS, CBCA #### [facility] ([id number]) [address] [place] [address] 72728 MCHC (RBC) [Mass/Vol] 34.0 g/dL Normal 32-36 [facility] Comment on above: Performed By: #### B PHYLLIS, CBCA #### [facility] ([id number]) [address] [place] [address] 62836 MCV (RBC) [Entitic vol] 82 fL Normal 80-100 [facility] Comment on above: Performed By: #### B MP, CBCA #### [facility] ([id number]) [address] [place] [address] 52774 Monocytes (Bld) [#/Vol] 0.5 10*3/uL Normal 0-0.9 [facility] Comment on above: Performed By: #### B MP, CBCA #### [facility] ([id number]) [address] [place] [address] 15240 Monocytes/100 WBC (Bld) 6.9 % Normal [facility] Comment on above: Performed By: #### B MP, CBCA #### [facility] ([id number]) [address] [place] [address] 62961 Neutrophils/100 WBC (Bld) 61.7 % Normal [facility] Comment on above: Performed By: #### B MP, CBCA #### [facility] ([id number]) [address] [place] [address] 37495 Platelet mean volume (Bld) [Entitic vol] 8.4 fL Normal 7-12 [facility] Comment on above: Performed By: #### B MP, CBCA #### [facility] ([id number]) [address] [place] [address] 50457 Platelets (Bld) [#/Vol] 247 10*3/uL Normal 150-450 [facility] Comment on above: Performed By: #### B MP, CBCA #### [facility] ([id number]) [address] [place] [address] 52426 RBC COUNT 4.93 X10E12/L Normal 3.80-5.20 [facility] Comment on above: Performed By: #### B MP, CBCA #### [facility] ([id number]) [address] [place] [address] 63611 WBC (Bld) [#/Vol] 7.5 10*3/uL Normal 4.0-11.0 [facility] Comment on above: Performed By: #### B PHYLLIS CBCA #### [facility] ([id number]) [address] [place] [address]RAIN WO CONTon CT BRAIN WO [...] Leon MD on 05/16/2023 10:57 AM Normal [facility] HCG ( test) Ql (U)o n 05-16-2023 Beta HCG ( test) Ql (U) Negative Normal NEG [facility] Comment on above: Performed By: #### 2 106-3 #### [facility] ([id number]) [address] [place] [address] 89769 URN MACROSCOPIC NURon 2023 BILIRUBIN TADEO Negative Normal NEG [facility] Comment on above: Performed By: #### N UM #### [facility] ([id number]) [address] [place] [address]43 BLOOD/HGB TADEO Negative Normal NEG [facility] Comment on above: Performed By: #### N UM #### [facility] ([id number]) [address] [place] [address] [place] [address] GLUCOSE TADEO Negative Normal NEG [facility] Comment on above: Performed By: #### N UM #### [facility] ([id number]) [address] [place] [address] [place] [address] KETONES TADEO Negative Normal NEG [facility] Comment on above: Performed By: #### N UM #### [facility] ([id number]) [address] [place] [address] [place] [address] LEUKOCYTE ESTERASE TADEO Negative Normal NEG [facility] Comment on above: Performed By: #### N UM #### [facility] ([id number]) [address] [place] [address] [place] [address] NITRITE TADEO Negative Normal NEG [facility] Comment on above: Performed By: #### N UM #### [facility] ([id number]) [address] [place] [address] [place] [address] PH TADEO 6.5 Normal 5.0-8.5 [facility] Comment on above: Performed By: #### N UM #### [facility] ([id number]) [address] [place] [address] [place] [address] PROTEIN TADEO Negative Normal NEG [facility] Comment on above: Performed By: #### N UM #### [facility] ([id number]) [address] [place] [address], [place] [address] SPECIFIC GRAVITY TADEO 1.025 Normal 1.003-1.035 [facility] Comment on above: Performed By: #### N UM #### [facility] ([id number]) [address] [place] [address], [place] [address] UROBILINOGEN TADEO 0.2 eu/dL Normal <1.1 [facility] Comment on above: Performed By: #### N UM #### [facility] ([id number]) [address] [facility] [place] [address] COVID + FLU Quick Testingon 02-05-2023 SARS-CoV-2 (COVID-19) RNA SARANYA+probe Ql (Unsp spec) Negative [facility] Other COVID + FLU Quick Testing Negative [facility] Other Aerobic Cultureon 12-22-2022 Aerobic Culture Comment tube 2 No Growth 2 Days Comment tube 2 No Anaerobes Isolated 3 Days Comment tube 2 Gram Stain Result No White Blood Cells Seen No Bacteria Seen PERFORMED BY: [place] [address] PATHOLOGIST BRAND ATTENDANT ALLEN COATES M.D. [facility] Comment on above: Performed By: #### C BC, PT, PTT #### [facility] [address] [place] [address] CSF PCR Panelon 12-22-2022 CSF PCR [...] Varicella zoster virus Not detected PERFORMED BY: [place] [address] PATHOLOGIST BRAND ATTENDANT ALLEN COATES M.D. [facility] Comment on above: Performed By: #### C SF PCR PANEL #### [facility] [address] [place], [place] [id number] [facility] Cell Count Differential,CSFo n 12-22-2022 Appearance, CSF Clear Normal Clear [facility] Comment on above: Order Comment: Comme nt tube 1 Performed By: #### C SFCCDIFF #2, CSF TP #2, CSF GLU #2, CSF GLU, CSF TP, GS, AERC, CSFCCDIFF #### [facility] [address] [place] [address] Order Comment: Comme nt tube 4 Color, CSF Colorless Normal Colorless [facility] Comment on above: Order Comment: Comme nt tube 1 Performed By: #### C SFCCDIFF #2, CSF TP #2, CSF GLU #2, CSF GLU, CSF TP, GS, AERC, CSFCCDIFF #### [facility] [address] [place] [address] Order Comment: Comme nt tube 4 CSF Supernatant Color Colorless Normal Colorless [facility] Comment on above: Order Comment: Comme nt tube 1 Performed By: #### C SFCCDIFF #2, CSF TP #2, CSF GLU #2, CSF GLU, CSF TP, GS, AERC, CSFCCDIFF #### [facility] [address] [place] [address] Order Comment: Comme nt tube 4 CSF Volume, Total 29.4 mL [facility] Comment on above: Order Comment: Comme nt tube 1 Performed By: #### C SFCCDIFF #2, CSF TP #2, CSF GLU #2, CSF GLU, CSF TP, GS, AERC, CSFCCDIFF #### [facility] [address] [place] [address] Order Comment: Comme nt tube 4 Lymphocytes, CSF 4 Normal [facility] Comment on [...] GLU, CSF TP, GS, AERC, CSFCCDIFF #### [facility] [address] [place] [address] RBC, CSF 2 /uL [facility] Comment on above: Order Comment: Comme nt tube 1 Result Comment: The reference interval and other method performance specifications have not been established for this body fluid. The test result must be integrated into the clinical context for interpretation. Performed By: #### C SFCCDIFF #2, CSF TP #2, CSF GLU #2, CSF GLU, CSF TP, GS, AERC, CSFCCDIFF #### [facility] [address] TNC, CSF 1 /uL Normal 0-5 [facility] Comment on above: Order Comment: Comme nt tube 1 Performed By: #### C SFCCDIFF #2, CSF TP #2, CSF GLU #2, CSF GLU, CSF TP, GS, AERC, CSFCCDIFF #### [facility] [address] [place] [address] Order Comment: Comme nt tube 4 Tube Number Tested, CSF Tube Number: 1 Normal [facility] Comment on above: Order Comment: Comme nt tube 1 Result Comment: PERF ORMED BY: [place] [address] PATHOLOGIST BRAND ATTENDANT ALLEN COATES M.D. Performed By: #### C SFCCDIFF #2, CSF TP #2, CSF GLU #2, CSF GLU, CSF TP, GS, AERC, CSFCCDIFF #### [address] Cell Count Differential,CSF #2on 12-22-2022 Lymphocytes, CSF 7 Normal [facility] Comment on [...] GLU, CSF TP, GS, AERC, CSFCCDIFF #### [facility] [address] [place] [address] RBC, CSF 1 /uL Normal [facility] Comment on above: Order Comment: Comme nt tube 4 Result Comment: The reference interval and other method performance specifications have not been established for this body fluid. The test result must be integrated into the clinical context for interpretation. Performed By: #### C SFCCDIFF #2, CSF TP #2, CSF GLU #2, CSF GLU, CSF TP, GS, AERC, CSFCCDIFF #### [facility] [address] [place] [address] Tube Number Tested, CSF Tube Number: 4 Normal [facility] Comment on above: Order Comment: Comme nt tube 4 Result Comment: PERF ORMED BY: [place] [address] PATHOLOGIST BRAND ATTENDANT ALLEN COATES M.D. Performed By: #### C SFCCDIFF #2, CSF TP #2, CSF GLU #2, CSF GLU, CSF TP, GS, AERC, CSFCCDIFF #### [facility] [address] [place] [address] Cerebrospinal fluid post-adams trifugation appearance determinationOrdered By: Razia Muller on 12-22-2022 Appearance (Spun CSF) Colorless Colorless [facility] Cerebrospinal fluid sample t ube volume measurementOrdered By: Razia Muller on 12-22-2022 Specimen volume (CSF) 29.4 mL [facility] Color CSFOrdered By: Razia longo on 12-22-2022 Color (CSF) Colorless Colorless [facility] Glucose, CSF #2on 12-22-2022 Glucose, CSF #2 71 mg/dL High 40-70 [facility] Comment on above: Order Comment: Comme nt tube 4 Performed By: #### C BC, PT, PTT #### [facility] [address] [place] [address] [place] Glucose, Spinal Fluidon 09-0 Glucose, Spinal Fluid 73 mg/dL High 40-70 [facility] Comment on above: Order Comment: Comme nt tube 1 Performed By: #### C SFCCDIFF #2, CSF TP #2, CSF GLU #2, CSF GLU, CSF TP, GS, AERC, CSFCCDIFF #### [facility] [address] [place] [address] [place] Gram Stainon 12-22-2022 Microscopic observation Gram stain Nom (Unsp spec) Comment tube 2 Gram Stain Result No White Blood Cells Seen No Bacteria Seen PERFORMED BY: [place] [address] PATHOLOGIST BRAND ATTENDANT ALLEN COATES M.D. [facility] Comment on above: Performed By: #### C SFCCDIFF #2, CSF TP #2, CSF GLU #2, CSF GLU, CSF TP, GS, AERC, CSFCCDIFF #### [address] IR guided lumbar puncture LP on 12-22-2022 IR guided lumbar puncture LP [facility] [place] [address] [place] [address] Interventional Radiology Rpt Signed Patient: Yani Stevens MR#: [id number] : 1990 Acct:[id number] Age/Sex: 32 / F ADM Date: 12/22/22 Loc: XD Room: Type: [facility] Attending Dr: Razia EVANGELISTA Copies [...] Vernon Lin M.D.12/22/2022 1:07 PM Dictation Location: [facility]-07 Transcribed By: PATT 12/22/22 130 Dictated By: Vernon Lin II, MD 12/22/22 125 Signed By: 12/22/22 130 [facility] 12-22-2022 L ---- Specimen: [id number] Received: 12/22/22 Status: TERRANCE [place] Num: [id number] Spec Type: Cytology Subm Dr: Razia Muller APRN-GLASS LATHE OPERATOR-C Tissues: A CSF (CSF) Procedures: Cyto Prepstain, DIFF QWIK, PAPSTN Age/ Patient Sex Location Account Attending Physician Yani Stevens 32/F XD [id number] Razia Muller APRN-KATIE-C SPEC NUM: [id number] RECD: 12/22/22 STATUS: TERRANCE PERLA NUM: [id number] TOMASA: 12/22/[address] [facility] [address]: JON Jimenez-Kaushik ENTERED: 12/22/[address] [facility] DR: Vernon Lin II, SPEC TYPE: Cytology DEPT: CNG ENTERED BY: [id number] RECV BY: [id number] ORDERED: Cyto Prepstain, DIFF QWIK, PAPSTN ORDERED: [...] [id number] Received: 12/22/22 Status: TERRANCE Perla Num: [id number] Spec Type: Cytology Subm Dr: Razia Muller, [facility]-GLASS LATHE OPERATOR-C Tissues: A CSF (CSF) Procedures: Cyto Prepstain, DIFF QWIK, PAPSTN Patient: Yani Stevens [id number] (Continued) Signed (signature on file) Dimas De Anda MD 12/26/22 09 Normal [facility] Manual cerebrospinal fluid e rythrocytes count (number/volume)Ordered By: Razia Muller on 12-22-2022 RBC Manual cnt (CSF) [#/Vol] 1 /uL [facility] Comment on above: The reference interv al and other method performance specifications have not been established for this body fluid. The test result must be integrated into the clinical context for interpretation. No Panel InformationOrdered By: Razia Muller on 12-22-2022 CSF Appearance Clear Clear [facility] CSF Eosinophils N/A [facility] CSF Lymphocytes 7 [facility] Comment on above: The reference interv al and other method performance specifications have not been established for this body fluid. The test result must be integrated into the clinical context for interpretation. CSF Monocytes N/A [facility] CSF Neutrophils N/A [facility] CSF Tube Number Tube number: 4 [facility] Nucleated cells [#/volume] i n Cerebral spinal fluid by Manual countOrdered By: Razia Muller on 12-22-2022 Nucleated cells Manual cnt (CSF) [#/Vol] 0.001 10*3/uL 0-5 [facility] Total Protein, CSF #2on 09-0 -2022 Total Protein, CSF #2 31 mg/dL Normal 15-45 [facility] Comment on above: Order Comment: Comme nt tube 4 Result Comment: PERF ORMED BY: [place] [address] PATHOLOGIST BRAND ATTENDANT ALLEN COATES M.D. Performed By: #### C BC, PT, PTT #### [address] Total Protein, Spinal Fluido n 12-22-2022 Total Protein, Spinal Fluid 34 mg/dL Normal 15-45 [facility] Comment on above: Order Comment: Comme nt tube 1 Result Comment: PERF ORMED BY: [place] [address] PATHOLOGIST BRAND ATTENDANT ALLEN COATES M.D. Performed By: #### C BC, PT, PTT #### [facility] [address] [place] [address] Activated partial thrombopla stin time (aPTT) in platelet poor plasma by coagulation aOrdered By: Razia Muller on 12-20-2022 aPTT Coag (PPP) [Time] 32.8 s 25.1-36.5 [facility] Basophils Auto (Bld) [#/Vol] Ordered By: Razai Muller on 12-20-2022 Basophils (Bld) [#/Vol] 0.0 10*3/uL 0.0-0.2 [facility] Basophils/100 WBC Auto (Bld) Ordered By: Razia Muller on 12-20-2022 Basophils/100 WBC (Bld) 0.5 % . [facility] Complete Blood Count Auto Di ffon 12-20-2022 Basophils (Bld) [#/Vol] 0.0 10*3/uL Normal 0.0-0.2 [facility] Comment on above: Result Comment: PERF ORMED BY: [place] [address] PATHOLOGIST BRAND ATTENDANT ALLEN COATES M.D. Performed By: #### C BC, PT, PTT #### [facility] [address] [place] [address] [place] Basophils/100 WBC (Bld) 0.5 % Normal . [facility] Comment on above: Performed By: #### C BC, PT, PTT #### [facility] [address] [place] [address] [place] Eosinophils (Bld) [#/Vol] 0.2 10*3/uL Normal 0.0-0.45 [facility] Comment on above: Performed By: #### C BC, PT, PTT #### [facility] [address] [place] [address] [place] Eosinophils/100 WBC (Bld) 3.2 % Normal . [facility] Comment on above: Performed By: #### C BC, PT, PTT #### [facility] [address] [place] [address] [place] Erythrocyte distribution width (RBC) [Ratio] 13.9 % Normal 11.9-15.3 [facility] Comment on above: Performed By: #### C BC, PT, PTT #### [facility] [address] [place] [address] [place] Hematocrit (Bld) [Volume fraction] 40.9 % Normal 34.0-46.4 [facility] Comment on above: Performed By: #### C BC, PT, PTT #### [facility] [address] [place] [address] [place] Hemoglobin (Bld) [Mass/Vol] 13.6 g/dL Normal 11.8-15.4 [facility] Comment on above: Performed By: #### C BC, PT, PTT #### [facility] [address] [place] [address] [place] Lymphocytes (Bld) [#/Vol] 2.1 10*3/uL Normal 1.00-4.8 [facility] Comment on above: Performed By: #### C BC, PT, PTT #### [facility] [address] Lymphocytes/100 WBC (Bld) 29.1 % Normal . [facility] Comment on above: Performed By: #### C BC, PT, PTT #### [facility] [address] [place] [address] [place] MCH (RBC) [Entitic mass] 27.6 pg Normal 24.7-34.3 [facility] Comment on above: Performed By: #### C BC, PT, PTT #### [address] MCV (RBC) [Entitic vol] 83.0 fL Normal 80-100 [facility] Comment on above: Performed By: #### C BC, PT, PTT #### [facility] [address] [place] [address] Mean Corpuscular HGB Conc 33.2 g/dL Normal 32.0-35.0 [facility] Comment on above: Performed By: #### C BC, PT, PTT #### [address] Monocytes (Bld) [#/Vol] 0.5 10*3/uL Normal 0.0-0.8 [facility] Comment on above: Performed By: #### C BC, PT, PTT #### [place] [address] [place] Monocytes/100 WBC (Bld) 6.3 % Normal . [facility] Comment on above: Performed By: #### C BC, PT, PTT #### [facility] [address] [place] [address] [place] Neutrophils (Bld) [#/Vol] 4.4 10*3/uL Normal 1.8-7.7 [facility] Comment on above: Performed By: #### C BC, PT, PTT #### [facility] [address] Neutrophils/100 WBC (Bld) 60.9 % Normal . [facility] Comment on above: Performed By: #### C BC, PT, PTT #### [facility] [address] NRBC% 0.1 /100{WBC} Normal 0-0.5 [facility] Comment on above: Performed By: #### C BC, PT, PTT #### [facility] [address] Platelet mean volume (Bld) [Entitic vol] 8.1 fL Normal 6.3-10.7 [facility] Comment on above: Performed By: #### C BC, PT, PTT #### [facility] [address] Platelets (Bld) [#/Vol] 222 10*3/uL Normal 150-450 [facility] Comment on above: Performed By: #### C BC, PT, PTT #### [facility] [address] RBC (Bld) [#/Vol] 4.93 10*6/uL Normal 3.60-5.00 [facility] Comment on above: Performed By: #### C BC, PT, PTT #### [place] [address] [place] WBC (Bld) [#/Vol] 7.3 10*3/uL Normal 3.8-11.6 [facility] Comment on above: Performed By: #### C BC, PT, PTT #### [facility] [address] [place] [address] [place] Eosinophils Auto (Bld) [#/Vo l]Ordered By: Razia Muller on 12-20-2022 Eosinophils (Bld) [#/Vol] 0.2 10*3/uL 0.0-0.45 [facility] Eosinophils/100 WBC Auto (Bl d)Ordered By: Razia Muller on 12-20-2022 Eosinophils/100 WBC (Bld) 3.2 % . [facility] Erythrocyte distribution wid th Auto (RBC) [Ratio]Ordered By: Razia Muller on 12-20-2022 Erythrocyte distribution width (RBC) [Ratio] 13.9 % 11.9-15.3 [facility] Hematocrit Auto (Bld) [Volum e fraction]Ordered By: Razia Muller on 12-20-2022 Hematocrit (Bld) [Volume fraction] 40.9 % 34.0-46.4 [facility] Hemoglobin [Mass/volume] in BloodOrdered By: Razia Muller on 12-20-2022 Hemoglobin (Bld) [Mass/Vol] 13.6 g/dL 11.8-15.4 [facility] INR in Platelet poor plasma by Coagulation assayOrdered By: Razia Muller on 12-20-2022 INR Coag (PPP) [Relative time] 1.0 {INR} [facility] Comment on above: INR Therapeutic [...] PT Coag (PPP) [Time] 11.1 s 9.0-12.9 [facility] Leukocytes [#/volume] correc burke for nucleated erythrocytes in Blood by Automated counOrdered By: Razia Muller on 12-20-2022 WBC corrected for nucl RBC Auto (Bld) [#/Vol] 7.3 10*3/uL 3.8-11.6 [facility] Lymphocytes Auto (Bld) [#/Vo l]Ordered By: Razia Muller on 12-20-2022 Lymphocytes (Bld) [#/Vol] 2.1 10*3/uL 1.00-4.8 [facility] Lymphocytes/100 WBC Auto (Bl d)Ordered By: Razia Muller on 12-20-2022 Lymphocytes/100 WBC (Bld) 29.1 % . [facility] MCH Auto (RBC) [Entitic mass ]Ordered By: Razia Muller on 12-20-2022 MCH (RBC) [Entitic mass] 27.6 pg 24.7-34.3 [facility] MCHC Auto (RBC) [Mass/Vol]Or dered By: Razia Muller on 12-20-2022 MCHC (RBC) [Mass/Vol] 33.2 g/dL 32.0-35.0 [facility] MCV Auto (RBC) [Entitic vol] Ordered By: Razia Muller on 12-20-2022 MCV (RBC) [Entitic vol] 83.0 fL 80-100 [facility] Monocytes Auto (Bld) [#/Vol] Ordered By: Razia Muller on 12-20-2022 Monocytes (Bld) [#/Vol] 0.5 10*3/uL 0.0-0.8 [facility] Monocytes/100 WBC Auto (Bld) Ordered By: Razia Muller on 12-20-2022 Monocytes/100 WBC (Bld) 6.3 % . [facility] Neutrophils Auto (Bld) [#/Vo l]Ordered By: Razia Muller on 12-20-2022 Neutrophils (Bld) [#/Vol] 4.4 10*3/uL 1.8-7.7 [facility] Neutrophils/100 WBC Auto (Bl d)Ordered By: Razia Muller on 12-20-2022 Neutrophils/100 WBC (Bld) 60.9 % . [facility] Nucleated erythrocytes [Pres ence] in Blood by Automated countOrdered By: Razia Muller on 12-20-2022 Nucleated RBC Auto Ql (Bld) 0.1 /100{WBC} 0-0.5 [facility] Partial Thromboplastin Timeo n 12-20-2022 aPTT Coag (Bld) [Time] 32.8 s Normal 25.1-36.5 [facility] Comment on above: Result Comment: PERF ORMED BY: [facility] [address] [place] [address] PATHOLOGIST BRAND ATTENDANT ALLEN COATES M.D. Performed By: #### C BC, PT, PTT #### [facility] [address] Platelet mean volume Auto (B ld) [Entitic vol]Ordered By: Razia Muller on 12-20-2022 Platelet mean volume (Bld) [Entitic vol] 8.1 fL 6.3-10.7 [facility] Platelets Auto (Bld) [#/Vol] Ordered By: Razia Muller on 12-20-2022 Platelets (Bld) [#/Vol] 222 10*3/uL 150-450 [facility] Prothrombin Time INRon 12-20 INR Coag (PPP) [Relative time] 1.0 {INR} Normal [facility] Comment on above: Result [...] By: #### C BC, PT, PTT #### [facility] [address] PT Coag (PPP) [Time] 11.1 s Normal 9.0-12.9 [facility] Comment on above: Performed By: #### C BC, PT, PTT #### [facility] [address] RBC Auto (Bld) [#/Vol]Ordere d By: Razia Muller on 12-20-2022 RBC (Bld) [#/Vol] 4.93 10*6/uL 3.60-5.00 [facility] WBC Auto (Bld) [#/Vol]Ordere d By: Razia Muller on 12-20-2022 WBC (Bld) [#/Vol] 7.3 10*3/uL 3.8-11.6 [facility] POC Glucose Fingerstickon Glucose [Mass/Vol] 85 mg/dL 65 - 105 mg/dL [facility] C.trachomatis N.gonorrhoeae DNA, Urineon 07-21-2022 Chlamydia sp DNA SARANYA+probe Ql (U) Negative NEGATIVE [facility] Comment on above: CHLAMYDIA TRACHOMATI S [...] gonorrhoeae DNA SARANYA+probe Ql (U) Negative NEGATIVE [facility] Comment on above: NEISSERIA GONORRHOEA E [...] alternative nucleic acid target. Specimen Description .URINE [facility] CBC auto differentialon 06-23 Absolute Eos # [place] [facility] Absolute Immature Granulocyte 0.12 [facility] Absolute Lymph # 1.21 [facility] Absolute [place] # 0.69 [facility] Basophils (Bld) [#/Vol] 0.03 10*3/uL [facility] Basophils/100 WBC (Bld) 0 % 0 - 2 % [facility] Eosinophils/100 WBC (Bld) 0 % Low 1 - 4 % [facility] Hematocrit (Bld) [Volume fraction] 33.5 % Low 36.3 - 47.1 % [facility] Hemoglobin (Bld) [Mass/Vol] 10.8 g/dL Low 11.9 - 15.1 g/dL [facility] Immature granulocytes/100 WBC (Bld) 1 % High 0 [facility] Interpretation and review of laboratory results Abnormal [facility] Lymphocytes/100 WBC (Bld) 8 % Low 24 - 43 % [facility] MCH (RBC) [Entitic mass] 28.4 pg 25.2 - 33.5 pg [facility] MCHC (RBC) [Mass/Vol] 32.2 g/dL 28.4 - 34.8 g/dL [facility] MCV (RBC) [Entitic vol] 88.2 fL 82.6 - 102.9 fL [facility] Monocytes/100 WBC (Bld) 4 % 3 - 12 % [facility] NRBC Automated 0.0 0.0 per 100 WBC [facility] Platelet distribution width (Bld) [Ratio] 13.2 % 11.8 - 14.4 % [facility] Platelet mean volume (Bld) [Entitic vol] 10.5 fL 8.1 - 13.5 fL [facility] Platelets (Bld) [#/Vol] 197 10*3/uL [facility] RBC (Bld) [#/Vol] 3.80 10*6/uL Low 3.95 - 5.1 1 m/uL [facility] Segmented neutrophils/100 WBC (Bld) 87 % High 36 - 65 % [facility] Segs Absolute 13.58 High [facility] WBC (Bld) [#/Vol] 15.6 10*3/uL High [facility] Culture, Urineon 07-21-2022 Microorganism identified Cx Nom (Unsp spec) NO SIGNIFICANT GROWTH [facility] Specimen Description .CLEAN CATCH URINE [facility] POC Glucose Fingerstickon Glucose [Mass/Vol] 108 mg/dL High 65 - 105 mg/dL [facility] Interpretation and review of laboratory results Abnormal [facility] Glucose [Mass/Vol] 95 mg/dL 65 - 105 mg/dL [facility] Glucose [Mass/Vol] 123 mg/dL High 65 - 105 mg/dL [facility] Interpretation and review of laboratory results Abnormal [facility] CBCon 07-20-2022 Hematocrit (Bld) [Volume fraction] 32.8 % Low 36.3 - 47.1 % [facility] Hemoglobin (Bld) [Mass/Vol] 11.0 g/dL Low 11.9 - 15.1 g/dL [facility] Interpretation and review of laboratory results Abnormal [facility] MCH (RBC) [Entitic mass] 28.6 pg 25.2 - 33.5 pg [facility] MCHC (RBC) [Mass/Vol] 33.5 g/dL 28.4 - 34.8 g/dL [facility] MCV (RBC) [Entitic vol] 85.4 fL 82.6 - 102.9 fL [facility] NRBC Automated 0.0 0.0 per 100 WBC [facility] Platelet distribution width (Bld) [Ratio] 13.2 % 11.8 - 14.4 % [facility] Platelet mean volume (Bld) [Entitic vol] 10.8 fL 8.1 - 13.5 fL [facility] Platelets (Bld) [#/Vol] 200 10*3/uL [facility] RBC (Bld) [#/Vol] 3.84 10*6/uL Low 3.95 - 5.1 1 m/uL [facility] WBC (Bld) [#/Vol] 10.2 10*3/uL [facility] Comprehensive Metabolic Pane jaylan 07-20-2022 Albumin [Mass/Vol] 3.3 g/dL Low 3.5 - 5.2 g/dL [facility] Albumin/Globulin [Mass ratio] 1.0 {ratio} 1.0 - 2.5 [facility] ALP [Catalytic activity/Vol] 142 U/L High 35 - 104 U/L [facility] ALT [Catalytic activity/Vol] 15 U/L 5 - 33 U/L [facility] Anion gap [Moles/Vol] 12 mmol/L 9 - 17 mmol/L [facility] AST [Catalytic activity/Vol] 15 U/L NINF - 32 U/L [facility] Bilirubin [Mass/Vol] mg/dL Low 0.3 - 1 .2 mg/dL [facility] Calcium [Mass/Vol] 9.0 mg/dL 8.6 - 10. 4 mg/dL [facility] Chloride [Moles/Vol] 104 mmol/L 98 - 10 7 mmol/L [facility] CO2 [Moles/Vol] 21 mmol/L 20 - 31 mmol/L [facility] Creatinine [Mass/Vol] 0.41 mg/dL Low 0.50 - 0.90 mg/dL [facility] GFR/1.73 sq M.predicted MDRD (S/P/Bld) [Vol rate/Area] - PINF [facility] Comment on above: These results are [...] 135 mg/dL High 70 - 99 mg/dL [facility] Interpretation and review of laboratory results Abnormal [facility] Potassium [Moles/Vol] 3.8 mmol/L 3.7 - 5.3 mmol/L [facility] Protein [Mass/Vol] 6.5 g/dL 6.4 - 8.3 g/dL [facility] Sodium [Moles/Vol] 137 mmol/L 135 - 144 mmol/L [facility] Urea nitrogen [Mass/Vol] 8 mg/dL 6 - 20 mg/dL [facility] DRUG SCREEN MULTI URINEon Amphetamine Screen, Ur Negative NEGATIVE [facility] Comment on above: (Positive cutoff 1000 ng/mL) Barbiturate Screen, Ur Negative NEGATIVE [facility] Comment on above: (Positive cutoff 200 ng/mL) Benzodiazepine Screen, Urine Negative NEGATIVE [facility] Comment on above: (Positive cutoff 200 ng/mL) Cannabinoid Scrn, Ur Negative NEGATIVE [facility] Comment on above: (Positive cutoff 50 ng/mL) Cocaine Metabolite, Urine Negative NEGATIVE [facility] Comment on above: (Positive cutoff 300 ng/mL) Fentanyl, Ur Negative NEGATIVE [facility] Comment on above: (Positive cutoff 5 ng/ml) Methadone Screen, Urine Negative NEGATIVE [facility] Comment on above: (Positive cutoff 300 ng/mL) Opiates, Urine Negative NEGATIVE [facility] Comment on above: (Positive cutoff 300 ng/mL) Oxycodone Screen, Ur Negative NEGATIVE [facility] Comment on above: (Positive cutoff 100 ng/mL) Phencyclidine, Urine Negative NEGATIVE [facility] Comment on above: (Positive cutoff 25 ng/mL) Test Information Assay provides medic al screening only. The absence of expected drug(s) and/or metabolite(s) may indicate diluted or adulterated urine, limitations of testing or timing of collection. [facility] Comment on above: Testing for legal pu rposes should be confirmed by another method. To request confirmation of test result, please call the lab within 7 days of sample submission. [facility] GROUP B STREP CULTUREon 06-23 S. agalactiae Ag Ql (Unsp spec) Culture Observations: NEGATIVE FOR GROUP B STREPTOCOCCUS. Normal [facility] Comment on above: Performed By: #### [id number] #### [facility] [address] [place] [address] Dr. Valeria Farris POC Glucose Fingerstickon Glucose [Mass/Vol] 116 mg/dL High 65 - 105 mg/dL [facility] Interpretation and review of laboratory results Abnormal [facility] Protein / creatinine ratio, urineon 07-20-2022 Creatinine, Ur 95.9 mg/dL 28.0 - 217.0 mg/dL [facility] Protein (U) [Mass/Vol] 17 mg/dL [facility] Comment on above: No normal range esta blished. Urine Total Protein Creatinine Ratio 0.18 0.00 - 0.20 [facility] T. pallidum Abon 07-20-2022 T. pallidum Ab IA Ql (S) Non-Reactive NONREACTIVE [facility] Comment on above: T. pallidum antibodies are not detected. There is no serological evidence of infection with T. pallidum (early primary syphilis cannot be excluded). Retest in 2-4 weeks if syphilis is clinically suspect. [facility] [employer] TYPE AND SCREENon 07-20-2022 ABO/Rh Positive [facility] Arm Band Number [id number] [facility] [employer] Expiration Date 07/23/2022,2359 [facility] US CHINYERE DOP LEG LTon 07-20-19 23 [...] by: GERARD GONZALEZ Date: 2022-07-19 15:06 Normal [facility] COVID + FLU Quick Testingon 07-18-2022 SARS-CoV-2 (COVID-19) RNA SARANYA+probe Ql (Unsp spec) Negative [employer] Other COVID + FLU Quick Testing Negative [employer] Other Quick Strepon 07-18-2022 S. pyogenes Org specific cx Ql (Throat) Negative [employer] Other Quick Strep [employer] Other US PREG BIOPHY W NON STRESSo [...] by: GERARD GONZALEZ Date: 2022-07-17 15:56 Normal [facility] Brain Natriuretic Peptideon 07-15-2022 Natriuretic peptide B (Bld) [Mass/Vol] pg/mL NINF - 300 pg/mL [facility] Comment on above: An age-independent cutoff point of 300 pg/ml has a 98% negative predictive value excluding acute heart failure. [facility] Comprehensive metabolic pane jaylan 07-15-2022 Albumin [Mass/Vol] 3.4 g/dL Low 3.5 - 5.2 g/dL [facility] Albumin/Globulin [Mass ratio] 1.0 {ratio} 1.0 - 2.5 [facility] ALP [Catalytic activity/Vol] 138 U/L High 35 - 104 U/L [facility] ALT [Catalytic activity/Vol] 16 U/L 5 - 33 U/L [facility] Anion gap [Moles/Vol] 12 mmol/L 9 - 17 mmol/L [facility] AST [Catalytic activity/Vol] 23 U/L [facility] - 32 U/L [facility] Bilirubin [Mass/Vol] mg/dL Low 0.3 - 1 .2 mg/dL [facility] Calcium [Mass/Vol] 8.9 mg/dL 8.6 - 10. 4 mg/dL [facility] Chloride [Moles/Vol] 102 mmol/L 98 - 10 7 mmol/L [facility] CO2 [Moles/Vol] 19 mmol/L Low 20 - 31 mmol/L [facility] Creatinine [Mass/Vol] 0.38 mg/dL Low 0.50 - 0.90 mg/dL [facility] GFR/1.73 sq M.predicted MDRD (S/P/Bld) [Vol rate/Area] - PINF [facility] Comment on above: These results are [...] 131 mg/dL High 70 - 99 mg/dL [facility] Interpretation and review of laboratory results Abnormal [facility] Potassium [Moles/Vol] 3.5 mmol/L Low 3.7 - 5.3 mmol/L [facility] Protein [Mass/Vol] 6.7 g/dL 6.4 - 8.3 g/dL [facility] Sodium [Moles/Vol] 133 mmol/L Low 135 - 144 mmol/L [facility] Urea nitrogen [Mass/Vol] 9 mg/dL 6 - 20 mg/dL [facility] HIV Screenon 07-15-2022 HIV 1+2 Ab+HIV1 p24 Ag IA Ql Non-Reactive NONREACTIVE [facility] Comment on above: No laboratory eviden ce of HIV infection. If acute HIV infection is suspected, consider testing for HIV-1 RNA. [facility] Protein / Creatinine Ratio, Urineon 07-15-2022 Creatinine, Ur 33.5 mg/dL 28.0 - 217.0 mg/dL [facility] Protein (U) [Mass/Vol] 5 mg/dL [facility] Comment on above: No normal range esta blished. Urine Total Protein Creatinine Ratio 0.15 0.00 - 0.20 [facility] TYPE AND SCREENon 07-15-2022 ABO/Rh Positive [facility] Arm Band Number [id number] [facility] Expiration Date 07/18/2022,2359 [facility] Troponinon 07-15-2022 Troponin I.cardiac DL <= 0.01 ng/mL [Mass/Vol] ng/L 0 - 14 ng/L [facility] Comment on above: High Sensitivity Tro ponin values cannot be compared with other Troponin methodologies. [facility] XR CHEST (SINGLE VIEW FRONTA L)on [...] The osseous structures are without acute process. [facility] Abner English MD - 07/15/2022 [...] without acute process. IMPRESSION: No acute process. [employer] Phone: Radiology Study observation (narrative) [employer] Phone: XR CHEST (SINGLE VIEW FRONTA L)Ordered By: Abner Dela Cruz on 07-15-2022 [employer] Phone: US PREG BIOPHY W NON STRESSo [...] by: GERARD GONZALEZ Date: 2022-07-10 15:41 Normal [facility] US PREG BIOPHY W NON [...] GERARD GONZALEZ Date: 2022-07-04 16:21 Normal [facility] UA (CLEAN/CATCH) SET UP WORKER/MICRO I F IND.on 06-30-2022 Bilirubin Ql (U) Negative Normal NEGATIVE [facility] Comment on above: Performed By: #### [id number] #### [facility] [address] [place] [address] Dr. Valeria Farris Clarity (U) CLEAR Normal CLEAR [facility] Comment on above: Performed By: #### [id number] #### [facility] [address] [address] [address] Valeria Farris Color (U) LT. YELLOW Normal YELLOW [facility] Comment on above: Performed By: #### [id number] #### [facility] [address] [place] [address] Dr. Valeria Farris Glucose Ql (U) Negative Normal NEGATIVE [facility] Comment on above: Performed By: #### [id number] #### [facility] [address] [place] [address] Dr. Valeria Farris Hemoglobin Ql (U) LARGE Abnormal NEGATIVE [facility] Comment on above: Performed By: #### 4 [id number] #### [facility] [address] [place] [address] Dr. Valeria Farris Ketones Ql (U) Negative Normal NEGATIVE [facility] Comment on above: Performed By: #### 4 [id number] #### [facility] [address] [place] [address] Dr. Valeria Farris LEUKOCYTES Negative Normal NEGATIVE [facility] Comment on above: Performed By: #### 4 [id number] #### [facility] [address] [place] [address] Dr. Valeria Farris Nitrite Ql (U) Negative Normal NEGATIVE [facility] Comment on above: Performed By: #### [id number] #### [facility] [address] [place] [address] Dr. Valeria Farris pH (U) 6.5 [pH] Normal 5-9 [facility] Comment on above: Performed By: #### 4 [id number] #### [facility] [address] [place] [address] Dr. Valeria Farris SPEC GRAVITY <=1.005 Abnormal 1.005-<=1.02 5 [facility] Comment on above: Performed By: #### 4 [id number] #### [facility] [address] [place] [address] Dr. Valeria Farris UA PROTEIN Negative Normal NEGATIVE/ TRACE [facility] Comment on above: Performed By: #### 4 [id number] #### [facility] [address] [place] [address] Dr. Valeria Farris UR MICRO IND INDICATED Normal [facility] Comment on above: Performed By: #### 4 [id number] #### [facility] [address] [place] [address] Dr. Valeria Farris Urobilinogen Qn (U) 0.2 {Manolo'U}/dL Normal 0.2 - 1. 0 [facility] Comment on above: Performed By: #### 4 [id number] #### [facility] [address] [place] [address] Dr. Valeria Farris URINE MICROSCOPIC ONLYon BACTERIA NONE SEEN Normal NONE SEEN [facility] Comment on above: Performed By: #### 4 [id number] #### [facility] [address] [place] [address] Dr. Valeria Farris Bacteria identified Cx Nom (U) NOT INDICATED Normal [facility] Comment on above: Performed By: #### 4 [id number] #### [facility] [address] [place] [address] Dr. Valeria Farris CAST NONE SEEN Normal NONE SEEN [facility] Comment on above: Performed By: #### 4 [id number] #### [facility] [address] [place] [address] Dr. Valeria Farris Crystals LM Nom (Urine sed) NONE SEEN Normal NONE SEEN [facility] Comment on above: Performed By: #### 4 [id number] #### [facility] [address] [place] [address] Dr. Valeria Farris Epithelial cells LM Ql (Urine sed) FEW Abnormal NONE SEEN /RARE [facility] Comment on above: Performed By: #### 4 [id number] #### [facility] [address] [address] [address] Valeria Farris MUCOUS NONE SEEN Normal NONE SEEN [facility] Comment on above: Performed By: #### 4 [id number] #### [facility] [address] [address] [address] Valeria Farris RBC 5-10 Abnormal 0-2 [facility] Comment on above: Performed By: #### 4 [id number] #### [facility] [address] [address] [address] Valeria Farris WBC 0-2 Abnormal NONE SEEN [facility] Comment on above: Performed By: #### 4 [id number] #### [facility] [address] [place] [address] Dr. Valeria Farris No Panel Informationon 06-29 [facility] T4, Freeon 06-29-2022 Free T4 [Mass/Vol] 0.82 ng/dL Low 0.93 - 1. 70 ng/dL [facility] Interpretation and review of laboratory results Abnormal [facility] TSHon 06-29-2022 TSH Qn 2.16 m[IU]/L [facility] US PREG BIOPHY W NON STRESSo [...] ALINE GALICIA Date: 2022-06-26 07:50 Normal [facility] US PREG BIOPHY W NON STRESSo [...] GERARD GONZALEZ Date: 2022-06-19 15:28 Normal [facility] CREATININE CLEARon 3 BODY SURF AREA 2.35 Normal [facility] Comment on above: Performed By: #### U ACSTRUPTI UMICRO #### [facility] [address] [place] [address] Dr. Valeria Farris CREEster CLEARANCE 128.94 ml/min Critically high 75.00-115.00 [facility] Comment on above: Performed By: #### U LETI UMICRO #### [facility] [address] [place] [address] Dr. Valeria Farris CREA, 24 HR UR 882.73 mg/24 hr Normal 800.00-1,8 00 .00 [facility] Comment on above: Performed By: #### U LETI UMICRO #### [facility] [address] [place] [address] Dr. Valeria Farris Creatinine [Mass/Vol] 0.35 mg/dL Critically low 0.55-1.02 [facility] Comment on above: Performed By: #### U LETI UMICRO #### [facility] [address] [place] [address] Dr. Valeria Farris URINE CREAT 21.53 mg/dL Normal 20.00-300.00 [facility] Comment on above: Performed By: #### U ACSTRUPTI UMICRO #### [facility] [address] [place] [address] Dr. Vlaeria Farris PROTEIN 24HR URINEon 023 T PROT, 24 HR UR 241.9 mg/24 hr Critically high <=149.1 [facility] Comment on above: Performed By: #### P [id number] #### [facility] [address] [place] [address] Dr. Valeria Farris UR PROT 5.9 mg/dL Normal <=11.9 [facility] Comment on above: Performed By: #### P [id number] #### [facility] [address] [place] [address] Dr. Valeria Farris UR TOT VOL 4100 ml/24 HR Normal [facility] Comment on above: Performed By: #### P [id number] #### [facility] [address] [place] [address] Dr. Valeria Farris Performed By: #### U ACSIND, UMICRO #### [facility] [address] [place] [address] Dr. Valeria Farris CBC AUTO DIFFon 06-17-2022 BASO # 0.0 103/ul Normal 0.0-0.1 [facility] Comment on above: Performed By: #### G LU1HR #### [facility] [address] [place] [address] Dr. Valeria Farris Basophils/100 WBC (Bld) 0.4 % Normal 0.2-2.0 [facility] Comment on above: Performed By: #### G LU1HR #### [facility] [address] [place] [address] Dr. Valeria Farris EO # 0.2 103/ul Normal 0.0-0.7 [facility] Comment on above: Performed By: #### G LU1HR #### [facility] [address] [place] [address] Dr. Valeria Farris Eosinophils/100 WBC (Bld) 2.0 % Normal 0.9-7.0 [facility] Comment on above: Performed By: #### G LU1HR #### [facility] [address] [place] [address] Dr. Valeria Farris Erythrocyte distribution width (RBC) [Ratio] 13.3 % Normal 11.0-15.0 [facility] Comment on above: Performed By: #### G LU1HR #### [facility] [address] [place] [address] Dr. Valeria Farris Hematocrit (Bld) [Volume fraction] 31.8 % Critically low 36.0-48.0 [facility] Comment on above: Performed By: #### G LU1HR #### [facility] [address] [place] [address] Dr. Valeria Farris Hemoglobin (Bld) [Mass/Vol] 10.8 g/dL Critically low 12.0-16.0 [facility] Comment on above: Performed By: #### G LU1HR #### [facility] [address] [place] [address] Dr. Valeria Farris IG # 0.09 10e3/ul Critically high 0.00-0.03 [facility] Comment on above: Performed By: #### G LU1HR #### [facility] [address] [place] [address] Dr. Valeria Farris IG % 0.8 % Critically high 0.0-0.5 [facility] Comment on above: Performed By: #### G LU1HR #### [facility] [address] [place] [address] Dr. Valeria Farris LYMPH # 2.2 103/ul Normal 1.2-3.8 [facility] Comment on above: Performed By: #### G LU1HR #### [facility] [address] [place] [address] Dr. Valeria Farris Lymphocytes/100 WBC (Bld) 20.0 % Critically low 20.5-60.0 [facility] Comment on above: Performed By: #### G LU1HR #### [facility] [address] [place] [address] Dr. Valeria Farris MANUAL DIFF REQ NO Normal [facility] Comment on above: Performed By: #### G LU1HR #### [facility] [address] [place] [address] Dr. Valeria Farris MCH (RBC) [Entitic mass] 28.4 pg Normal 26.7-34.0 [facility] Comment on above: Performed By: #### G LU1HR #### [facility] [address] [place] [address] Dr. Valeria Farris MCHC (RBC) [Mass/Vol] 34.0 g/dL Normal 29.9-35.2 [facility] Comment on above: Performed By: #### G LU1HR #### [facility] [address] [address] [address] Valeria Farris MCV (RBC) [Entitic vol] 83.7 fL Normal 81.0-99.0 [facility] Comment on above: Performed By: #### G LU1HR #### [facility] [address] [place] [address] Dr. Valeria Farris MONO # 0.9 103/ul Critically high 0.3-0.8 [facility] Comment on above: Performed By: #### G LU1HR #### [facility] [address] [place] [address] Dr. Valeria Farris Monocytes/100 WBC (Bld) 7.9 % Normal 1.7-12.0 [facility] Comment on above: Performed By: #### G LU1HR #### [facility] [address] [place] [address] Dr. Valeria Farris NEUT # 7.7 103/ul Critically high 1.4-6.5 [facility] Comment on above: Performed By: #### G LU1HR #### [facility] [address] [place] [address] Dr. Valeria Farris Neutrophils/100 WBC (Bld) 68.9 % Normal 43.0-75.0 [facility] Comment on above: Performed By: #### G LU1HR #### [facility] [address] [place] [address] Dr. Valeria Farris Platelet mean volume (Bld) [Entitic vol] 10.7 fL Normal 9.5-13.5 [facility] Comment on above: Performed By: #### G LU1HR #### [facility] [address] [place] [address] Dr. Valeria Farris PLT 195 103/ul Normal 150-450 [facility] Comment on above: Performed By: #### G LU1HR #### [facility] [address] [address] [address] Valeria Farris RBC 3.80 106/ul Critically low 4.20-5.40 [facility] Comment on above: Performed By: #### G LU1HR #### [facility] [address] [address] [address] Valeria Farris WBC 11.2 103/ul Critically high 4.0-11.0 [facility] Comment on above: Performed By: #### G LU1HR #### [facility] [address] [address] [address] Valeria Farris LDHon 06-17-2022 LDH 230 U/L Normal 81-234 [facility] Comment on above: Performed By: #### P [id number] #### [facility] [address] [place] [address] Dr. Valeria Farris PROF 14(COMP METB)on 023 Albumin [Mass/Vol] 2.6 g/dL Critically low 3.4-5.0 [facility] Comment on above: Performed By: #### P ROT24U #### [facility] [address] [address] [address] Valeria Farris Albumin/Globulin [Mass ratio] 0.6 {ratio} Normal [facility] Comment on above: Performed By: #### P ROT24U #### [facility] [address] [address] [address] Valeria Farris ALP [Catalytic activity/Vol] 112 U/L Normal 46-116 [facility] Comment on above: Performed By: #### P ROT24U #### [facility] [address] [address] [address] Valeria Farris ALT [Catalytic activity/Vol] 18 U/L Normal 14-59 [facility] Comment on above: Performed By: #### P ROT24U #### [facility] [address] [address] [address] Valeria Farris Anion gap [Moles/Vol] 13.1 mmol/L Normal [facility] Comment on above: Performed By: #### P ROT24U #### [facility] [address] [address] [address] Valeria Farris AST [Catalytic activity/Vol] 22 U/L Normal 15-37 [facility] Comment on above: Performed By: #### P ROT24U #### [facility] [address] [address] [address] Valeria Farris Bilirubin [Mass/Vol] 0.2 mg/dL Normal 0.2-1.0 [facility] Comment on above: Performed By: #### P ROT24U #### [facility] [address] [address] [address] Valeria Farris Calcium [Mass/Vol] 9.1 mg/dL Normal 8.5-10.1 [facility] Comment on above: Performed By: #### P ROT24U #### [facility] [address] [place] [address] Dr. Valeria Farris Chloride [Moles/Vol] 103 mmol/L Normal 98-107 [facility] Comment on above: Performed By: #### P ROT24U #### [facility] [address] [address] [address] Valeria Farris CO2 [Moles/Vol] 25.8 mmol/L Normal 21.0-32.0 [facility] Comment on above: Performed By: #### P ROT24U #### [facility] [address] [place] [address] Dr. Valeria Farris Creatinine [Mass/Vol] 0.35 mg/dL Critically low 0.55-1.02 [facility] Comment on above: Performed By: #### P ROT24U #### [facility] [address] [address] [address] Valeria Farris EGFR-AF BELGIAN >60 Normal >=60 [facility] Comment on above: Performed By: #### P ROT24U #### [facility] [address] [address] [address] Valeria Farris EGFR-NON AF BELGIAN >60 Normal >=60 [facility] Comment on above: Performed By: #### P ROT24U #### [facility] [address] [address] [address] Valeria Farris Globulin (S) [Mass/Vol] 4.2 g/dL Normal [facility] Comment on above: Performed By: #### P ROT24U #### [facility] [address] [place] [address] Dr. Valeria Farris Glucose [Mass/Vol] 80 mg/dL Normal 74-106 [facility] Comment on above: Performed By: #### P ROT24U #### [facility] [address] [place] [address] Dr. Valeria Farris Potassium [Moles/Vol] 3.9 mmol/L Normal 3.5-5.1 [facility] Comment on above: Performed By: #### P ROT24U #### [facility] [address] [place] [address] Dr. Valeria Farris Protein [Mass/Vol] 6.8 g/dL Normal 6.4-8.2 [facility] Comment on above: Performed By: #### P ROT24U #### [facility] [address] [place] [address] Dr. Valeria Farris Sodium [Moles/Vol] 138 mmol/L Normal 136-145 [facility] Comment on above: Performed By: #### P ROT24U #### [facility] [address] [place] [address] Dr. Valeria Farris Urea nitrogen [Mass/Vol] 10.0 mg/dL Normal 7.0-18.0 [facility] Comment on above: Performed By: #### P ROT24U #### [facility] [address] [place] [address] Dr. Valeria Farris Urea nitrogen/Creatinine [Mass ratio] 28.6 mg/mg Normal [facility] Comment on above: Performed By: #### P ROT24U #### [facility] [address] [place] [address] Dr. Valeria Farris PTTon 06-17-2022 aPTT Coag (Bld) [Time] 26.4 s Normal 22.3-36.2 [facility] Comment on above: Performed By: #### P REGQNT #### [facility] [address] [place] [address] Dr. Valeria Farris UA (CLEAN/CATCH) SET UP WORKER/MICRO I F IND.on 06-17-2022 Bilirubin Ql (U) Negative Normal NEGATIVE [facility] Comment on above: Performed By: #### P REGQNT #### [facility] [address] [place] [address] Dr. Valeria Farris Clarity (U) CLEAR Normal CLEAR [facility] Comment on above: Performed By: #### P REGQNT #### [facility] [address] [place] [address] Dr. Valeria Farris Color (U) LT. YELLOW Normal YELLOW [facility] Comment on above: Performed By: #### P REGQNT #### [facility] [address] [place] [address] Dr. Valeria Farris Glucose Ql (U) Negative Normal NEGATIVE [facility] Comment on above: Performed By: #### P REGQNT #### [facility] [address] [place] [address] Dr. Valeria Farris Hemoglobin Ql (U) Negative Normal NEGATIVE [facility] Comment on above: Performed By: #### P REGQNT #### [facility] [address] [place] [address] Dr. Valeria Farris Ketones Ql (U) Negative Normal NEGATIVE [facility] Comment on above: Performed By: #### P REGQNT #### [facility] [facility] [address] [place] [address] Dr. Valeria Farris LEUKOCYTES Negative Normal NEGATIVE [facility] Comment on above: Performed By: #### P REGQNT #### [facility] [address] [place] [address] Dr. Valeria Farris Nitrite Ql (U) Negative Normal NEGATIVE [facility] Comment on above: Performed By: #### P REGQNT #### [facility] [address] [place] [address] Dr. Valeria Farris pH (U) 6.5 [pH] Normal 5-9 [facility] Comment on above: Performed By: #### P REGQNT #### [facility] [address] [address] [address] Valeria Farris SPEC GRAVITY 1.010 Normal 1.005-<=1.02 5 [facility] Comment on above: Performed By: #### P REGQNT #### [facility] [address] [address] [address] Valeria Farris UA PROTEIN Negative Normal NEGATIVE/ TRACE [facility] Comment on above: Performed By: #### P REGQNT #### [facility] [address] [address] [address] Valeria Farris UR MICRO IND NOT INDICATED Normal [facility] Comment on above: Performed By: #### P REGQNT #### [facility] [address] [address] [address] Valeria Farris Urobilinogen Qn (U) 0.2 {Manolo'U}/dL Normal 0.2 - 1. 0 [facility] Comment on above: Performed By: #### P REGQNT #### [facility] [address] [address] [address] Valeria Farris URIC ACID SERUMon 06-17-2022 Urate [Mass/Vol] 3.3 mg/dL Normal 2.6-6.0 [facility] Comment on above: Performed By: #### P [id number] #### [facility] [address] [place] [address] Dr. Valeria Farris PAP ACOG PANEL 2: 30 to 65on 05-29-2022 . . Normal [facility] Comment on above: Result Comment: Perf ormed at: WB Performed By: #### [id number] #### [facility] [address] [address] [address] Valeria Farris Age Gdln ACOG Testing 30-65 Normal [facility] Comment on above: Performed By: #### 4 [id number] #### [facility] [address] [place] [address] Dr. Valeria Farris DIAGNOSIS: Comment Normal [facility] Comment on above: Result Comment: NEGA TIVE FOR INTRAEPITHELIAL LESION OR MALIGNANCY. Performed at: WB Performed By: #### 4 [id number] #### [facility] [address] [place] [address] Dr. Valeria Farris HPV Aptima Negative Normal Negative [facility] Comment on above: Result Comment: This nucleic acid amplification test detects fourteen high-risk HPV types (16,18,31,33,35,39,45,51,52,56,58,59,66,68) without differentiation. Performed at: =G Performed By: #### 4 [id number] #### [facility] [address] [place] [address] Dr. Valeria Farris HPV Genotype Reflex Comment Normal [facility] Comment on above: Result Comment: Crit eria not met, HPV Genotype not performed. Performed at: WB Performed By: #### 4 [id number] #### [facility] [address] [place] [address] Dr. Valeria Farris Methodology: Comment Normal [facility] Comment on above: Result Comment: This liquid based ThinPrep(R) pap test was screened with the use of an image guided system. Performed at: WB Performed By: #### [id number] #### [facility] [address] [place] [address] Dr. Valeria Farris Note: Comment Normal [facility] Comment on above: Result Comment: The Pap smear is a screening test designed to aid in the detection of premalignant and malignant conditions of the uterine cervix. It is not a diagnostic procedure and should not be used as the sole means of detecting cervical cancer. Both false-positive and false-negative reports do occur. . Performed at: WB Performed By: #### [id number] #### [facility] [address] [place] [address] Dr. Valeria Farris Performed by: Comment Normal [facility] Comment on above: Result Comment: Jaye Simmons, Sound Engineering Technician (ASCP) Performed at: WB Performed By: #### 4 [id number] #### [facility] [address] [place] [address] Dr. Valeria Farris Specimen adequacy: Comment Normal [facility] Comment on above: Result Comment: Sati sfactory for evaluation. Performed at: WB Performed By: #### 4 [id number] #### [facility] [address] [place] [address] Dr. Valeria Farris POINT OF CARE GLUCOSEon 02-0 Glucose [Mass/Vol] 122 mg/dL Critically high 74-106 [facility] Comment on above: Performed By: #### U ACSIND, UMICRO #### [facility] [address] [place] [address] Dr. Valeria Farris UA (CLEAN/CATCH) SET UP WORKER/MICRO I F IND.on 05-29-2022 Bilirubin Ql (U) Negative Normal NEGATIVE [facility] Comment on above: Performed By: #### U ACSIND, UMICRO #### [facility] [address] [place] [address] Dr. Valeria Farris Clarity (U) CLEAR Normal CLEAR [facility] Comment on above: Performed By: #### U ACSTRUPTI, UMICRO #### [facility] [address] [place] [address] Dr. Valeria Farris Color (U) LT. YELLOW Normal YELLOW [facility] Comment on above: Performed By: #### U ACSIND, UMICRO #### [facility] [address] [place] [address] Dr. Valeria Farris Glucose Ql (U) Negative Normal NEGATIVE [facility] Comment on above: Performed By: #### U ACSIND, UMICRO #### [facility] [address] [place] [address] Dr. Valeria Fraris Hemoglobin Ql (U) TRACE-INTACT Abnormal NEGATIVE [facility] Comment on above: Performed By: #### U ACSIND, UMICRO #### [facility] [address] [place] [address] Dr. Valeria Farris Ketones Ql (U) Negative Normal NEGATIVE [facility] Comment on above: Performed By: #### U ACSIND, UMICRO #### [facility] [address] [place] [address] Dr. Valeria Farris LEUKOCYTES Negative Normal NEGATIVE [facility] Comment on above: Performed By: #### U ACSIND, UMICRO #### [facility] [address] [place] [address] Dr. Valeria Farris Nitrite Ql (U) Negative Normal NEGATIVE [facility] Comment on above: Performed By: #### U ACSIND, UMICRO #### [facility] [address] [place] [address] Dr. Valeria Farris pH (U) 5.5 [pH] Normal 5-9 [facility] Comment on above: Performed By: #### U ACSIND, UMICRO #### [facility] [address] [place] [address] Dr. Valeria Farris SPEC GRAVITY 1.010 Normal 1.005-<=1.02 5 [facility] Comment on above: Performed By: #### U ACSTRUPTI, UMICRO #### [facility] [address] [place] [address] Dr. Valeria Farris UA PROTEIN Negative Normal NEGATIVE/ TRACE [facility] Comment on above: Performed By: #### U ACSTRUPTI, UMICRO #### [facility] [address] [place] [address] Dr. Valeria Farris UR MICRO IND INDICATED Normal [facility] Comment on above: Performed By: #### U ACSTRUPTI, UMICRO #### [facility] [address] [place] [address] Dr. Valeria Farris Urobilinogen Qn (U) 0.2 {Manolo'U}/dL Normal 0.2 - 1. 0 [facility] Comment on above: Performed By: #### U ACSTRUPTI, UMICRO #### [facility] [address] [place] [address] Dr. Valeria Farris URINE MICROSCOPIC ONLYon BACTERIA NONE SEEN Normal NONE SEEN [facility] Comment on above: Performed By: #### U ACSIND, UMICRO #### [facility] [address] [place] [address] Dr. Valeria Farris Bacteria identified Cx Nom (U) NOT INDICATED Normal [facility] Comment on above: Performed By: #### U ACSIND, UMICRO #### [facility] [address] [place] [address] Dr. Valeria Farris CAST NONE SEEN Normal NONE SEEN [facility] Comment on above: Performed By: #### U ACSTRUPTI UMICRO #### [facility] [address] [place] [address] Dr. Valeria Farris Crystals LM Nom (Urine sed) NONE SEEN Normal NONE SEEN [facility] Comment on above: Performed By: #### U LETI ICRO #### [facility] [address] [place] [address] Dr. Valeria Farris Epithelial cells LM Ql (Urine sed) FEW Abnormal NONE SEEN /RARE [facility] Comment on above: Performed By: #### Jona LANDEROS ICRO #### [facility] [address] [place] [address] Dr. Valeria Farris MUCOUS NONE SEEN Normal NONE SEEN [facility] Comment on above: Performed By: #### J[place] LANDEROS ICRO #### [facility] [address] [place] [address] Dr. Valeria Farris RBC 0-2 Normal 0-2 [facility] Comment on above: Performed By: #### J[place] LANDEROS ICRO #### [facility] [address] [place] [address] Dr. Valeria Farris WBC NONE SEEN Normal NONE SEEN [facility] Comment on above: Performed By: #### J[place] LANDEROS ICRO #### [facility] [address] [place] [address] Dr. Valeria Farris CHLAMYDIA/GONOCOCCUS SARANYA (SW AB/URINE/PAPon 05-26-2022 Chlamydia trachomatis, SARANYA Negative Normal Negative [facility] Comment on above: Performed By: #### 4 [id number] #### [facility] [address] [place] [address] Dr. Valeria Farris Neisseria gonorrhoeae, SARANYA Negative Normal Negative [facility] Comment on above: Performed By: #### 4 [id number] #### [facility] [address] [place] [address] Dr. Valeria Farris AMYLASEon 02-02-2023 Amylase [Catalytic activity/Vol] 30 U/L Normal 25-115 [facility] Comment on above: Performed By: #### P [id number] #### [facility] [address] [place] [address] Dr. Valeria Farris CARDIAC VERNON 3-6on 3 CK [Catalytic activity/Vol] 119 U/L Normal 26-192 [facility] Comment on above: Performed By: #### P [id number] #### [facility] [address] [place] [address] Dr. Valeria Farris CK.MB [Mass/Vol] ng/mL Normal <=3.60 [facility] Comment on above: Performed By: #### P [id number] #### [facility] [address] [place] [address] Dr. Valeria Farris HSTROP <4.0 Normal 4.0-51.3 [facility] Comment on above: Result Comment: CUT- OFF POINTS HAVE BEEN ESTABLISHED BASED ON THE FOURTH UNIVERSAL DEFINITIONS OF MYOCARDIAL INFARCTION. THE UPPER REFERENCE LIMIT (URL) OF TROPONIN, DEFINED THE 99TH PERCENTILE OF cTnI DISTRIBUTION IN A REFERENCE POPULATION, HAS BEEN CONFIRMED THE DECISION THRESHOLD FOR OR DIAGNOSIS. Performed By: #### P [id number] #### [facility] [address] [place] [address] Dr. Valeria Farris CARDIAC VERNON ADMITon 023 CK [Catalytic activity/Vol] 121 U/L Normal 26-192 [facility] Comment on above: Performed By: #### P [id number] #### [facility] [address] [place] [address] Dr. Valeria Farris CK.MB [Mass/Vol] 0.51 ng/mL Normal <=3.60 [facility] Comment on above: Performed By: #### P [id number] #### [facility] [address] [place] [address] Dr. Valeria Farris HSTROP 4.1 pg/mL Normal 4.0-51.3 [facility] Comment on above: Result Comment: CUT- OFF POINTS HAVE BEEN ESTABLISHED BASED ON THE FOURTH UNIVERSAL DEFINITIONS OF MYOCARDIAL INFARCTION. THE UPPER REFERENCE LIMIT (URL) OF TROPONIN, DEFINED THE 99TH PERCENTILE OF cTnI DISTRIBUTION IN A REFERENCE POPULATION, HAS BEEN CONFIRMED THE DECISION THRESHOLD FOR OR DIAGNOSIS. Performed By: #### P [id number] #### [facility] [address] [place] [address] Dr. Valeria Farris MINI 19 ng/mL Normal 9-82 [facility] Comment on above: Performed By: #### P [id number] #### [facility] [address] [place] [address] Dr. Valeria Farris CBC AUTO DIFFon 05-25-2022 BASO # 0.0 103/ul Normal 0.0-0.1 [facility] Comment on above: Performed By: #### 4 [id number] #### [facility] [address] [place] [address] Dr. Valeria Farris Basophils/100 WBC (Bld) 0.2 % Normal 0.2-2.0 [facility] Comment on above: Performed By: #### 4 [id number] #### [facility] [address] [place] [address] Dr. Valeria Farris EO # 0.1 103/ul Normal 0.0-0.7 [facility] Comment on above: Performed By: #### 4 [id number] #### [facility] [address] [place] [address] Dr. Valeria Farris Eosinophils/100 WBC (Bld) 0.8 % Critically low 0.9-7.0 [facility] Comment on above: Performed By: #### 4 [id number] #### [facility] [address] [place] [address] Dr. Valeria Farris Erythrocyte distribution width (RBC) [Ratio] 13.5 % Normal 11.0-15.0 [facility] Comment on above: Performed By: #### 4 [id number] #### [facility] [address] [place] [address] Dr. Valeria Farris Hematocrit (Bld) [Volume fraction] 30.4 % Critically low 36.0-48.0 [facility] Comment on above: Performed By: #### 4 [id number] #### [facility] [address] [place] [address] Dr. Valeria Farris Hemoglobin (Bld) [Mass/Vol] 9.8 g/dL Critically low 12.0-16.0 [facility] Comment on above: Performed By: #### 4 [id number] #### [facility] [address] [place] [address] Dr. Valeria Farris IG # 0.21 10e3/ul Critically high 0.00-0.03 [facility] Comment on above: Performed By: #### 4 [id number] #### [facility] [address] [place] [address] Dr. Valeria Farris IG % 1.6 % Critically high 0.0-0.5 [facility] Comment on above: Performed By: #### 4 [id number] #### [facility] [address] [place] [address] Dr. Valeria Farris LYMPH # 2.8 103/ul Normal 1.2-3.8 [facility] Comment on above: Performed By: #### 4 [id number] #### [facility] [address] [place] [address] Dr. Valeria Farris Lymphocytes/100 WBC (Bld) 21.3 % Normal 20.5-60.0 [facility] Comment on above: Performed By: #### 4 [id number] #### [facility] [address] [place] [address] Dr. Valeria Farris MANUAL DIFF REQ NO Normal [facility] Comment on above: Performed By: #### 4 [id number] #### [facility] [address] [place] [address] Dr. Valeria Farris MCH (RBC) [Entitic mass] 28.2 pg Normal 26.7-34.0 [facility] Comment on above: Performed By: #### 4 [id number] #### [facility] [address] [place] [address] Dr. Valeria Farris MCHC (RBC) [Mass/Vol] 32.2 g/dL Normal 29.9-35.2 [facility] Comment on above: Performed By: #### 4 [id number] #### [facility] [address] [place] [address] Dr. Valeria Farris MCV (RBC) [Entitic vol] 87.6 fL Normal 81.0-99.0 [facility] Comment on above: Performed By: #### 4 [id number] #### [facility] [address] [place] [address] Dr. Valeria Farris MONO # 0.9 103/ul Critically high 0.3-0.8 [facility] Comment on above: Performed By: #### 4 [id number] #### [facility] [address] [place] [address] Dr. Valeria Farris Monocytes/100 WBC (Bld) 6.8 % Normal 1.7-12.0 [facility] Comment on above: Performed By: #### 4 [id number] #### [facility] [address] [place] [address] Dr. Valeria Farris NEUT # 9.0 103/ul Critically high 1.4-6.5 [facility] Comment on above: Performed By: #### 4 [id number] #### [facility] [address] [place] [address] Dr. Valeria Farris Neutrophils/100 WBC (Bld) 69.3 % Normal 43.0-75.0 [facility] Comment on above: Performed By: #### 4 [id number] #### [facility] [address] [place] [address] Dr. Valeria Farris Platelet mean volume (Bld) [Entitic vol] 10.5 fL Normal 9.5-13.5 [facility] Comment on above: Performed By: #### 4 [id number] #### [facility] [address] [place] [address] Dr. Valeria Farris PLT 187 103/ul Normal 150-450 [facility] Comment on above: Performed By: #### 4 [id number] #### [facility] [address] [place] [address] Dr. Valeria Farris RBC 3.47 106/ul Critically low 4.20-5.40 [facility] Comment on above: Performed By: #### 4 [id number] #### [facility] [address] [address] [address] Valeria Farris WBC 13.0 103/ul Critically high 4.0-11.0 [facility] Comment on above: Performed By: #### 4 [id number] #### [facility] [address] [place] [address] Dr. Valeria Farris CTA CHEST WO W [...] Daryl LOPEZ Date: 2022-05-25 01:55 Normal [facility] CULTURE URINEon 05-25-2022 CULTURE URINE Culture Observations : HEAVY GROWTH OF MIXED GENITAL RIO. NO POTENTIAL PATHOGENS SEEN. Normal [facility] Comment on above: Performed By: #### 4 [id number] #### [facility] [address] [place] [address] Dr. Valeria Farris LIPASEon 05-25-2022 Lipase [Catalytic activity/Vol] 54.0 U/L Critically low 73.0-393.0 [facility] Comment on above: Performed By: #### P [id number] #### [facility] [address] [place] [address] Dr. Valeria Farris PROF 14(COMP METB)on 023 Albumin [Mass/Vol] 2.5 g/dL Critically low 3.4-5.0 [facility] Comment on above: Performed By: #### P [id number] #### [facility] [address] [place] [address] Dr. Valeria Farris Albumin/Globulin [Mass ratio] 0.6 {ratio} Normal [facility] Comment on above: Performed By: #### P [id number] #### [facility] [address] [place] [address] Dr. Valeria Farris ALP [Catalytic activity/Vol] 97 U/L Normal 46-116 [facility] Comment on above: Performed By: #### P [id number] #### [facility] [address] [place] [address] Dr. Valeria Farris ALT [Catalytic activity/Vol] 25 U/L Normal 14-59 [facility] Comment on above: Performed By: #### P [id number] #### [facility] [address] [place] [address] Dr. Valeria Farris Anion gap [Moles/Vol] 14.2 mmol/L Normal [facility] Comment on above: Performed By: #### P [id number] #### [facility] [address] [place] [address] Dr. Valeria Farris AST [Catalytic activity/Vol] 12 U/L Critically low 15-37 [facility] Comment on above: Performed By: #### P [id number] #### [facility] [address] [place] [address] Dr. Valeria Farris Bilirubin [Mass/Vol] 0.2 mg/dL Normal 0.2-1.0 [facility] Comment on above: Performed By: #### P [id number] #### [facility] [address] [place] [address] Dr. Valeria Farris Calcium [Mass/Vol] 8.5 mg/dL Normal 8.5-10.1 [facility] Comment on above: Performed By: #### P [id number] #### [facility] [address] [place] [address] Dr. Valeria Farris Chloride [Moles/Vol] 103 mmol/L Normal 98-107 [facility] Comment on above: Performed By: #### P [id number] #### [facility] [address] [place] [address] Dr. Valeria Farris CO2 [Moles/Vol] 23.0 mmol/L Normal 21.0-32.0 [facility] Comment on above: Performed By: #### P [id number] #### [facility] [address] [place] [address] Dr. Valeria Farris Creatinine [Mass/Vol] 0.39 mg/dL Critically low 0.55-1.02 [facility] Comment on above: Performed By: #### P [id number] #### [facility] [address] [place] [address] Dr. Valeria Farris EGFR-AF BELGIAN >60 Normal >=60 [facility] Comment on above: Performed By: #### P [id number] #### [facility] [address] [place] [address] Dr. Valeria Farris EGFR-NON AF BELGIAN >60 Normal >=60 [facility] Comment on above: Performed By: #### P [id number] #### [facility] [address] [place] [address] Dr. Valeria Farris Globulin (S) [Mass/Vol] 4.0 g/dL Normal [facility] Comment on above: Performed By: #### P [id number] #### [facility] [address] [place] [address] Dr. Valeria Farris Glucose [Mass/Vol] 113 mg/dL Critically high 74-106 [facility] Comment on above: Performed By: #### P [id number] #### [facility] [address] [place] [address] Dr. Valeria Farris Potassium [Moles/Vol] 3.2 mmol/L Critically low 3.5-5.1 [facility] Comment on above: Performed By: #### P [id number] #### [facility] [address] [place] [address] Dr. Valeria Farris Protein [Mass/Vol] 6.5 g/dL Normal 6.4-8.2 [facility] Comment on above: Performed By: #### P [id number] #### [facility] [address] [place] [address] Dr. Valeria Farris Sodium [Moles/Vol] 137 mmol/L Normal 136-145 [facility] Comment on above: Performed By: #### P [id number] #### [facility] [address] [place] [address] Dr. Valeria Farris Urea nitrogen [Mass/Vol] 8.0 mg/dL Normal 7.0-18.0 [facility] Comment on above: Performed By: #### P [id number] #### [facility] [address] [place] [address] Dr. Valeria Farris Urea nitrogen/Creatinine [Mass ratio] 20.5 mg/mg Normal [facility] Comment on above: Performed By: #### P [id number] #### [facility] [address] [place] [address] Dr. Valeria Farris UA (CLEAN/CATCH) SET UP WORKER/MICRO I F IND.on 05-25-2022 Bilirubin Ql (U) Negative Normal NEGATIVE [facility] Comment on above: Performed By: #### G [id number] #### [facility] [address] [place] [address] Dr. Valeria Farris Clarity (U) CLEAR Normal CLEAR [facility] Comment on above: Performed By: #### G [id number] #### [facility] [address] [place] [address] Dr. Valeria Farris Color (U) YELLOW Normal YELLOW [facility] Comment on above: Performed By: #### G LU1HR #### [facility] [address] [place] [address] Dr. Valeria Farris Glucose Ql (U) Negative Normal NEGATIVE [facility] Comment on above: Performed By: #### G LU1HR #### [facility] [address] [place] [address] Dr. Valeria Farris Hemoglobin Ql (U) TRACE-INTACT Abnormal NEGATIVE [facility] Comment on above: Performed By: #### G LU1HR #### [facility] [address] [place] [address] Dr. Valeria Farris Ketones Ql (U) TRACE Abnormal NEGATIVE [facility] Comment on above: Performed By: #### G LU1HR #### [facility] [address] [place] [address] Dr. Valeria Farris LEUKOCYTES Negative Normal NEGATIVE [facility] Comment on above: Performed By: #### G LU1HR #### [facility] [address] [place] [address] Dr. Valeria Farris Nitrite Ql (U) Negative Normal NEGATIVE [facility] Comment on above: Performed By: #### G LU1HR #### [facility] [address] [place] [address] Dr. Valeria Farris pH (U) 6.0 [pH] Normal 5-9 [facility] Comment on above: Performed By: #### G LU1HR #### [facility] [address] [place] [address] Dr. Valeria Farris SPEC GRAVITY >=1.030 Abnormal 1.005-<=1.02 5 [facility] Comment on above: Performed By: #### G LU1HR #### [facility] [address] [place] [address] Dr. Valeria Farris UA PROTEIN Negative Normal NEGATIVE/ TRACE [facility] Comment on above: Performed By: #### G LU1HR #### [facility] [address] [place] [address] Dr. Valeria Farris UR MICRO IND INDICATED Normal [facility] Comment on above: Performed By: #### G LU1HR #### [facility] [address] [place] [address] Dr. Valeria Farris Urobilinogen Qn (U) 0.2 {Manolo'U}/dL Normal 0.2 - 1. 0 [facility] Comment on above: Performed By: #### G LU1HR #### [facility] [address] [place] [address] Dr. Valeria Farris URINE MICROSCOPIC ONLYon BACTERIA SMALL Abnormal NONE SEEN [facility] Comment on above: Performed By: #### G LU1HR #### [facility] [address] [place] [address] Dr. Valeria Farris Bacteria identified Cx Nom (U) INDICATED Normal [facility] Comment on above: Performed By: #### G LU1HR #### [facility] [address] [place] [address] Dr. Valeria Farris CA OX CRYSTALS FEW Normal [facility] Comment on above: Performed By: #### G LU1HR #### [facility] [address] [place] [address] Dr. Valeria Farris CAST NONE SEEN Normal NONE SEEN [facility] Comment on above: Performed By: #### G LU1HR #### [facility] [address] [place] [address] Dr. Valeria Farris Crystals LM Nom (Urine sed) SEEN Abnormal NONE SEEN [facility] Comment on above: Performed By: #### G LU1HR #### [facility] [address] [place] [address] Dr. Valeria Farris Epithelial cells LM Ql (Urine sed) MANY Abnormal NONE SEEN /RARE [facility] Comment on above: Performed By: #### G LU1HR #### [facility] [address] [place] [address] Dr. Valeria Farris MUCOUS TRACE Abnormal NONE SEEN [facility] Comment on above: Performed By: #### G LU1HR #### [facility] [address] [place] [address] Dr. Valeria Farris RBC 2-5 Abnormal 0-2 [facility] Comment on above: Performed By: #### G LU1HR #### [facility] [address] [place] [address] Dr. Valeria Farris WBC NONE SEEN Normal NONE SEEN [facility] Comment on above: Performed By: #### G LU1HR #### [facility] [address] [address] [address] Valeria Farris VAGINITIS/VAGINOSIS DNA PROB Sam 05-25-2022 Litzy species Negative Normal Negative [facility] Comment on above: Performed By: #### P REGQNT #### [facility] [address] [place] [address] Dr. Valeria Farris Gardnerella vaginalis Positive Abnormal Negative [facility] Comment on above: Performed By: #### P REGQNT #### [facility] [address] [place] [address] Dr. Valeria Farris Trichomonas vaginalis Negative Normal Negative [facility] Comment on above: Performed By: #### P REGQNT #### [facility] [address] [place] [address] Dr. Valeria Farris UA (CLEAN/CATCH) SET UP WORKER/MICRO I F IND.on 05-04-2022 Bilirubin Ql (U) Negative Normal NEGATIVE [facility] Comment on above: Performed By: #### P REGQNT #### [facility] [address] [place] [address] Dr. Valeria Farris Clarity (U) CLEAR Normal CLEAR [facility] Comment on above: Performed By: #### P REGQNT #### [facility] [address] [place] [address] Dr. Valeria Farris Color (U) LT. YELLOW Normal YELLOW [facility] Comment on above: Performed By: #### P REGQNT #### [facility] [address] [place] [address] Dr. Valeria Farris Glucose Ql (U) Negative Normal NEGATIVE [facility] Comment on above: Performed By: #### P REGQNT #### [facility] [address] [place] [address] Dr. Valeria Farris Hemoglobin Ql (U) SMALL Abnormal NEGATIVE [facility] Comment on above: Performed By: #### P REGQNT #### [facility] [address] [place] [address] Dr. Valeria Farris Ketones Ql (U) TRACE Abnormal NEGATIVE [facility] Comment on above: Performed By: #### P REGQNT #### [facility] [address] [place] [address] Dr. Valeria Farris LEUKOCYTES Negative Normal NEGATIVE [facility] Comment on above: Performed By: #### P REGQNT #### [facility] [address] [place] [address] Dr. Valeria Farris Nitrite Ql (U) Negative Normal NEGATIVE [facility] Comment on above: Performed By: #### P REGQNT #### [facility] [address] [place] [address] Dr. Valeria Farris pH (U) 6.5 [pH] Normal 5-9 [facility] Comment on above: Performed By: #### P REGQNT #### [facility] [address] [place] [address] Dr. Valeria Farris SPEC GRAVITY 1.025 Normal 1.005-<=1.02 5 [facility] Comment on above: Performed By: #### P REGQNT #### [facility] [address] [place] [address] Dr. Valeria Farris UA PROTEIN Negative Normal NEGATIVE/ TRACE [facility] Comment on above: Performed By: #### P REGQNT #### [facility] [address] [place] [address] Dr. Valeria Farris UR MICRO IND INDICATED Normal [facility] Comment on above: Performed By: #### P REGQNT #### [facility] [address] [place] [address] Dr. Valeria Farris Urobilinogen Qn (U) 0.2 {Manolo'U}/dL Normal 0.2 - 1. 0 [facility] Comment on above: Performed By: #### P REGQNT #### [facility] [address] [place] [address] Dr. Valeria Farris URINE MICROSCOPIC ONLYon BACTERIA NONE SEEN Normal NONE SEEN [facility] Comment on above: Performed By: #### U ACSIND, UMICRO #### [facility] [address] [place] [address] Dr. Valeria Farris Bacteria identified Cx Nom (U) NOT INDICATED Normal [facility] Comment on above: Performed By: #### U ACSTRUPTI, UMICRO #### [facility] [address] [place] [address] Dr. Valeria Farris CAST NONE SEEN Normal NONE SEEN [facility] Comment on above: Performed By: #### U ACSIND, UMICRO #### [facility] [address] [place] [address] Dr. Valeria Farris Crystals LM Nom (Urine sed) NONE SEEN Normal NONE SEEN [facility] Comment on above: Performed By: #### U ACSTRUPTI, UMICRO #### [facility] [address] [place] [address] Dr. Valeria Farris Epithelial cells LM Ql (Urine sed) FEW Abnormal NONE SEEN /RARE [facility] Comment on above: Performed By: #### U ACSTRUPTI, UMICRO #### [facility] [address] [place] [address] Dr. Valeria Farris MUCOUS TRACE Abnormal NONE SEEN [facility] Comment on above: Performed By: #### U ACSTRUPTI, UMICRO #### [facility] [address] [place] [address] Dr. Valeria Farris RBC 0-2 Normal 0-2 [facility] Comment on above: Performed By: #### U ACSTRUPTI, UMICRO #### [facility] [address] [place] [address] Dr. Valeria Farris WBC NONE SEEN Normal NONE SEEN [facility] Comment on above: Performed By: #### U ACSTRUPTI, UMICRO #### [facility] [address] [place] [address] Dr. Valeria Farris AMYLASEon 04-12-2022 Amylase [Catalytic activity/Vol] 31 U/L Normal 25-115 [facility] Comment on above: Performed By: #### G LU1HR #### [facility] [address] [place] [address] Dr. Valeria Farris BUNon 04-12-2022 Urea nitrogen [Mass/Vol] 7.0 mg/dL Normal 7.0-18.0 [facility] Comment on above: Performed By: #### G LU1HR #### [facility] [address] [place] [address] Dr. Valeria Farris CBC AUTO DIFFon 04-12-2022 BASO # 0.0 103/ul Normal 0.0-0.1 [facility] Comment on above: Performed By: #### P REGQNT #### [facility] [address] [place] [address] Dr. Valeria Farris Basophils/100 WBC (Bld) 0.3 % Normal 0.2-2.0 [facility] Comment on above: Performed By: #### P REGQNT #### [facility] [address] [place] [address] Dr. Valeria Farris EO # 0.3 103/ul Normal 0.0-0.7 [facility] Comment on above: Performed By: #### P REGQNT #### [facility] [address] [place] [address] Dr. Valeria Farris Eosinophils/100 WBC (Bld) 2.3 % Normal 0.9-7.0 [facility] Comment on above: Performed By: #### P REGQNT #### [facility] [address] [place] [address] Dr. Valeria Farris Erythrocyte distribution width (RBC) [Ratio] 12.8 % Normal 11.0-15.0 [facility] Comment on above: Performed By: #### P REGQNT #### [facility] [address] [place] [address] Dr. Valeria Farris Hematocrit (Bld) [Volume fraction] 34.9 % Critically low 36.0-48.0 [facility] Comment on above: Performed By: #### P REGQNT #### [facility] [address] [place] [address] Dr. Valeria Farris Hemoglobin (Bld) [Mass/Vol] 11.8 g/dL Critically low 12.0-16.0 [facility] Comment on above: Performed By: #### P REGQNT #### [facility] [address] [address] [address] Valeria Farris IG # 0.08 10e3/ul Critically high 0.00-0.03 [facility] Comment on above: Performed By: #### P REGQNT #### [facility] [address] [address] [address] Valeria Farris IG % 0.7 % Critically high 0.0-0.5 [facility] Comment on above: Performed By: #### P REGQNT #### [facility] [address] [address] [address] Valeria Farris LYMPH # 2.6 103/ul Normal 1.2-3.8 [facility] Comment on above: Performed By: #### P REGQNT #### [facility] [address] [place] [address] Dr. Valeria Farris Lymphocytes/100 WBC (Bld) 22.4 % Normal 20.5-60.0 [facility] Comment on above: Performed By: #### P REGQNT #### [facility] [address] [address] [address] Valeria Farris MANUAL DIFF REQ NO Normal [facility] Comment on above: Performed By: #### P REGQNT #### [facility] [address] [place] [address] Dr. Valeria Farris MCH (RBC) [Entitic mass] 28.5 pg Normal 26.7-34.0 [facility] Comment on above: Performed By: #### P REGQNT #### [facility] [address] [address] [address] Valeria Farris MCHC (RBC) [Mass/Vol] 33.8 g/dL Normal 29.9-35.2 [facility] Comment on above: Performed By: #### P REGQNT #### [facility] [address] [place] [address] Dr. Valeria Farris MCV (RBC) [Entitic vol] 84.3 fL Normal 81.0-99.0 [facility] Comment on above: Performed By: #### P REGQNT #### [facility] [address] [address] [address] Valeria Farris MONO # 0.8 103/ul Normal 0.3-0.8 [facility] Comment on above: Performed By: #### P REGQNT #### [facility] [address] [address] [address] Valeria Farris Monocytes/100 WBC (Bld) 6.8 % Normal 1.7-12.0 [facility] Comment on above: Performed By: #### P REGQNT #### [facility] [address] [address] [address] Valeria Farris NEUT # 7.8 103/ul Critically high 1.4-6.5 [facility] Comment on above: Performed By: #### P REGQNT #### [facility] [address] [place] [address] Dr. Valeria Farris Neutrophils/100 WBC (Bld) 67.5 % Normal 43.0-75.0 [facility] Comment on above: Performed By: #### P REGQNT #### [facility] [address] [place] [address] Dr. Valeria Farris Platelet mean volume (Bld) [Entitic vol] 10.3 fL Normal 9.5-13.5 [facility] Comment on above: Performed By: #### P REGQNT #### [facility] [address] [address] [address] Valeria Farris PLT 195 103/ul Normal 150-450 [facility] Comment on above: Performed By: #### P REGQNT #### [facility] [address] [address] [address] Valeria Farris RBC 4.14 106/ul Critically low 4.20-5.40 [facility] Comment on above: Performed By: #### P REGQNT #### [facility] [address] [address] [address] Valeria Farris WBC 11.5 103/ul Critically high 4.0-11.0 [facility] Comment on above: Performed By: #### P REGQNT #### [facility] [address] [address] [address] Valeria Farris CREATININEon 04-12-2022 Creatinine [Mass/Vol] 0.44 mg/dL Critically low 0.55-1.02 [facility] Comment on above: Performed By: #### G LU1HR #### [facility] [address] [place] [address] Dr. Valeria Farris EGFR-AF BELGIAN >60 Normal >=60 [facility] Comment on above: Performed By: #### G LU1HR #### [facility] [address] [place] [address] Dr. Valeria Farris EGFR-NON AF BELGIAN >60 Normal >=60 [facility] Comment on above: Performed By: #### G LU1HR #### [facility] [address] [place] [address] Dr. Valeria Farris LIPASEon 04-12-2022 Lipase [Catalytic activity/Vol] 62.0 U/L Critically low 73.0-393.0 [facility] Comment on above: Performed By: #### G LU1HR #### [facility] [address] [place] [address] Dr. Valeria Farris LIVER PROFILEon 04-12-2022 Albumin [Mass/Vol] 2.9 g/dL Critically low 3.4-5.0 [facility] Comment on above: Performed By: #### G LU1HR #### [facility] [address] [place] [address] Dr. Valeria Farris Albumin/Globulin [Mass ratio] 0.7 {ratio} Normal [facility] Comment on above: Performed By: #### G LU1HR #### [facility] [address] [place] [address] Dr. Valeria Farris ALP [Catalytic activity/Vol] 86 U/L Normal 46-116 [facility] Comment on above: Performed By: #### G LU1HR #### [facility] [address] [place] [address] Dr. Valeria Farris ALT [Catalytic activity/Vol] 14 U/L Normal 14-59 [facility] Comment on above: Performed By: #### G LU1HR #### [facility] [address] [address] [address] Valeria Farris AST [Catalytic activity/Vol] 12 U/L Critically low 15-37 [facility] Comment on above: Performed By: #### G LU1HR #### [facility] [address] [place] [address] Dr. Valeria Farris BILI, CONJUGATED 0.1 mg/dL Normal 0.0-0.2 [facility] Comment on above: Performed By: #### G LU1HR #### [facility] [address] [place] [address] Dr. Valeria Farris Bilirubin [Mass/Vol] 0.2 mg/dL Normal 0.2-1.0 [facility] Comment on above: Performed By: #### G LU1HR #### [facility] [address] [place] [address] Dr. Valeria Farris Globulin (S) [Mass/Vol] 4.2 g/dL Normal [facility] Comment on above: Performed By: #### G LU1HR #### [facility] [address] [place] [address] Dr. Valeria Farris Protein [Mass/Vol] 7.1 g/dL Normal 6.4-8.2 [facility] Comment on above: Performed By: #### G LU1HR #### [facility] [address] [place] [address] Dr. Valeria Farris PROF 14(COMP METB)on 022 Anion gap [Moles/Vol] 13.1 mmol/L Normal [facility] Comment on above: Performed By: #### G LU1HR #### [facility] [address] [place] [address] Dr. Valeria Farris Calcium [Mass/Vol] 8.7 mg/dL Normal 8.5-10.1 [facility] Comment on above: Performed By: #### G LU1HR #### [facility] [address] [place] [address] Dr. Valeria Farris Chloride [Moles/Vol] 100 mmol/L Normal 98-107 [facility] Comment on above: Performed By: #### G LU1HR #### [facility] [address] [address] [address] Valeria Farris CO2 [Moles/Vol] 25.4 mmol/L Normal 21.0-32.0 [facility] Comment on above: Performed By: #### G LU1HR #### [facility] [address] [address] [address] Valeria Farris Glucose [Mass/Vol] 87 mg/dL Normal 74-106 [facility] Comment on above: Performed By: #### G LU1HR #### [facility] [address] [place] [address] Dr. Valeria Farris Potassium [Moles/Vol] 3.5 mmol/L Normal 3.5-5.1 [facility] Comment on above: Performed By: #### G LU1HR #### [facility] [address] [address] [address] Valeria Farris Sodium [Moles/Vol] 135 mmol/L Critically low 136-145 [facility] Comment on above: Performed By: #### G LU1HR #### [facility] [address] [place] [address] Dr. Valeria Farris Urea nitrogen/Creatinine [Mass ratio] 15.9 mg/mg Normal [facility] Comment on above: Performed By: #### G LU1HR #### [facility] [address] [place] [address] Dr. 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 Valeria Farris Clarity (U) CLEAR Normal CLEAR [facility] Comment on above: Performed By: #### U ACSIND, UMICRO #### [facility] [address] [place] [address] Dr. Valeria Farris Color (U) LT. YELLOW Normal YELLOW [facility] Comment on above: Performed By: #### U ACSIND, UMICRO #### [facility] [address] [place] [address] Dr. Valeria Farris Glucose Ql (U) Negative Normal NEGATIVE [facility] Comment on above: Performed By: #### U ACSIND, UMICRO #### [facility] [address] [place] [address] Dr. Valeria Farris Hemoglobin Ql (U) TRACE-INTACT Abnormal NEGATIVE [facility] Comment on above: Performed By: #### U ACSTRUPTI, UMICRO #### [facility] [address] [place] [address] Dr. Valeria Farris Ketones Ql (U) Negative Normal NEGATIVE [facility] Comment on above: Performed By: #### U ACSTRUPTI, UMICRO #### [facility] [address] [address] [address] Valeria Farris LEUKOCYTES Negative Normal NEGATIVE [facility] Comment on above: Performed By: #### U ACSIND, UMICRO #### [facility] [address] [place] [address] Dr. Valeria Farris Nitrite Ql (U) Negative Normal NEGATIVE [facility] Comment on above: Performed By: #### U ACSIND, UMICRO #### [facility] [address] [place] [address] Dr. Valeria Farris pH (U) 6.5 [pH] Normal 5-9 [facility] Comment on above: Performed By: #### U ACSIND, UMICRO #### [facility] [address] [place] [address] Dr. Valeria Farris SPEC GRAVITY 1.010 Normal 1.005-<=1.02 5 [facility] Comment on above: Performed By: #### U ACSIND, UMICRO #### [facility] [address] [place] [address] Dr. Valeria Farris UA PROTEIN Negative Normal NEGATIVE/ TRACE [facility] Comment on above: Performed By: #### U ACSIND, UMICRO #### [facility] [address] [place] [address] Dr. Valeria Farris UR MICRO IND INDICATED Normal [facility] Comment on above: Performed By: #### U ACSIND, UMICRO #### [facility] [address] [place] [address] Dr. Valeria Farris Urobilinogen Qn (U) 0.2 {Manolo'U}/dL Normal 0.2 - 1. 0 [facility] Comment on above: Performed By: #### U ACSIND, UMICRO #### [facility] [address] [place] [address] Dr. Valeria Farris URINE MICROSCOPIC ONLYon BACTERIA NONE SEEN Normal NONE SEEN [facility] Comment on above: Performed By: #### U ACSIND, UMICRO #### [facility] [address] [place] [address] Dr. Valeria Farris Bacteria identified Cx Nom (U) NOT INDICATED Normal [facility] Comment on above: Performed By: #### U ACSIND, UMICRO #### [facility] [address] [place] [address] Dr. Valeria Farris CAST NONE SEEN Normal NONE SEEN [facility] Comment on above: Performed By: #### U ACSIND, UMICRO #### [facility] [address] [place] [address] Dr. Valeria Farris Crystals LM Nom (Urine sed) NONE SEEN Normal NONE SEEN [facility] Comment on above: Performed By: #### U ACSIND, UMICRO #### [facility] [address] [place], [place] [address] Dr. Valeria Farris Epithelial cells LM Ql (Urine sed) FEW Abnormal NONE SEEN /RARE [facility] Comment on above: Performed By: #### U ACSIND, UMICRO #### [facility] [address] [address] [address] Valeria Farris MUCOUS NONE SEEN Normal NONE SEEN [facility] Comment on above: Performed By: #### U ACSIND, UMICRO #### [facility] [address] [address] [address] Valeria Farris RBC 0-2 Normal 0-2 [facility] Comment on above: Performed By: #### U ACSIND, UMICRO #### [facility] [address] [address] [address] Valeria Farris WBC 0-2 Abnormal NONE SEEN [facility] Comment on above: Performed By: #### U ACSIND, UMICRO #### [facility] [address] [address] [address] Valeria Farris US PREG ANATOMY SINGLEon [...] ALINE GALICIA Date: 2022-03-28 10:57 Normal [facility] XR SHOULDER RT 2V or >on XR SHOULDER RT 2V or > EXAM: XR SHOULDER RT 2V or > INDICATION: Pain. COMPARISON: None. TECHNIQUE: Right shoulder, 3 views. FINDINGS: No acute fracture or dislocation. Intact glenohumeral and acromioclavicular joints. Unremarkable soft tissues. IMPRESSION: Normal right shoulder. Electronically authenticated by: JACKIE TAYLOR Date: 2022-03-19 08:36 Normal [facility] AFP TETRA PROFILE (MATERNAL) on 03-08-2022 AFP MoM 0.60 Normal [facility] Comment on above: Performed By: #### U DAPHNE LANDEROS #### [facility] [address] [address] [address] Valeria Farris AFP Value 15.2 ng/mL Normal [facility] Comment on above: Performed By: #### U DAPHNE LANDEROS #### [facility] [address] [address] [address] Valeria Farris Comment Comment Normal [facility] Comment on above: Result Comment: Nicolás Ramirez, Ph.D., [facility] Director . References: Available Upon Request. . Multiples Of Median Cutoffs Abbreviation Definitions For AFP Elevations IDD- Insulin Dep Diabetes Rodriguez 2.5 Black 2.8 OSBR- Open Spina Bifida IDD 2.0 Twins 4.5 Risk DSR Cutoff 1:270 DSR- Down Syndrome Risk T18 Cutoff 1:100 T18- Trisomy 18 . For further inquiries contact [employer] at [phone]. . This test was developed and its performance characteristics determined by [employer]. It has not been cleared or approved by the Food and Drug Administration. Performed By: #### U ACSTRUPTI UMICRO #### [facility] [address] [address] [address] Valeria Farris CHACE MoM 0.90 Normal [facility] Comment on above: Performed By: #### U ACSIND, UMICRO #### [facility] [address] [address] [address] Valeria Farris CHACE Value 95.93 pg/mL [facility] Comment on above: Performed By: #### U ACSTRUPTI, UMICRO #### [facility] [address] [place] [address] Dr. Valeria Farris DSR (By Age) 1 [place] 656 Normal [facility] Comment on above: Performed By: #### U ACSIND UMICRO #### [facility] [address] [place] [address] Dr. Valeria Farris DSR (Second Trimester) 1 [place] [address]782 [facility] Comment on above: Performed By: #### U ACSTRUPTI UMICRO #### [facility] [address] [place] [address] Dr. Valeria Chaudhry Age on Collection Date 16.7 WEEKS [facility] Comment on above: Performed By: #### U ACSTRUPTI, UMICRO #### [facility] [address] [place] [address] Dr. Valeria Phillip. Age Based On SUNSHINE Normal [facility] Comment on above: Result Comment: 07/23 Performed By: #### U ACSIND, UMICRO #### [facility] [address] [address] [address] Valeria Farris hCG MoM 0.61 Normal [facility] Comment on above: Performed By: #### U ACSIND, UMICRO #### [facility] [address] [address] [place] [address] m[IU]/mL [facility] Comment on above: Performed By: #### U ACSIND, UMICRO #### [facility] [address] [address] [address] Valeria Farris Insulin Dep Diabetes No Normal [facility] Comment on above: Performed By: #### U ACSIND, UMICRO #### [facility] [address] [address] [address] Valeria Farris Interpretation Comment Normal [facility] Comment on above: Result Comment: Inte [...] identifies 60% of Trisomy 18 pregnancies. The [employer] recommends amniocentesis be offered to women age 35 and older. Recalculations are not recommended when gestational dating by LMP and ultrasound are within 10 days. Performed By: #### U ACSIND, UMICRO #### [facility] [address] [address] [address] Valeria Farris [age] Normal [facility] Comment on above: Performed By: #### U ACSIND, UMICRO #### [facility] [address] [address] [address] Valeria Farris Multiple Gestation No Normal [facility] Comment on above: Performed By: #### U ACSIND, UMICRO #### [facility] [address] [address] [address] Valeria Farris OSBR [place] 1 [place] [address] [facility] Comment on above: Performed By: #### U ACSIND, UMICRO #### [facility] [address] [address] [address] Valeria Farris PDF . Normal [facility] Comment on above: Performed By: #### U ACSIND, UMICRO #### [facility] [address] [address] [address] Valeria Farris Race Normal [facility] Comment on above: Performed By: #### U ACSIND, UMICRO #### [facility] [address] [address] [address] Valeria Farris Results Report Normal [facility] Comment on above: Performed By: #### U ACSIND, UMICRO #### [facility] [address] [address] [address] Valeria Farris T18 (By Age) 1:2556 Normal [facility] Comment on above: Performed By: #### U ACSIND, UMICRO #### [facility] [address] [address] [address] Valeria Farris T18 Risk Not increased Normal [facility] Comment on above: Performed By: #### U ACSIND, UMICRO #### [facility] [address] [place] [address] Dr. Valeria Farris Test Results: Negative Normal [facility] Comment on above: Performed By: #### U ACSIND, UMICRO #### [facility] [address] [address] [address] Valeria Farris uE3 MoM 0.75 Normal [facility] Comment on above: Performed By: #### U ACSIND, UMICRO #### [facility] [address] [place] [address] Dr. Valeria Farris uE3 Value 0.71 ng/mL [facility] Comment on above: Performed By: #### U ACSIND, UMICRO #### [facility] [address] [address] [address] Valeria Farris GLUCOSE - 1HRon 03-03-2022 Glucose [Mass/Vol] 214 mg/dL Critically high 74-106 T [facility] Comment on above: Performed By: #### G LU1HR #### [facility] [address] [place] [address] Dr. Valeria Farris HEPATITIS C VIRUS AB W/ REFL EX QUANTon 01-11-2022 HCV AB <0.1 Normal 0.0-0.9 [facility] Comment on above: Performed By: #### P REGQNT #### [facility] [address] [address] [address] Valeria Farris Interpretation: Comment Normal [facility] Comment on above: Result Comment: Nega tive Not infected with HCV, unless recent infection is suspected or other evidence exists to indicate HCV infection. Performed By: #### P REGQNT #### [facility] [address] [address] [address] Valeria Farris HEP B SURFACE ANTIGEN SCREEN on 01-10-2022 HBsAg Screen Negative Normal Negative [facility] Comment on above: Performed By: #### P REGQNT #### [facility] [address] [place] [address] Dr. Valeria Farris HIV 1 AND 2 WITH REFLEXon HIV Screen 4th Generation wRfx Non-Reactive Normal Non Reactive [facility] Comment on above: Result Comment: HIV Negative HIV-1/HIV-2 antibodies and HIV-1 p24 antigen were NOT detected. There is no laboratory evidence of HIV infection. Performed By: #### H IV12 #### [facility] [address] [place] [address] Dr. Valeria Farris RPR QUANTon 01-10-2022 Rapid Plasma Reagin, Quant Non-Reactive Normal NonRea<1:1 [facility] Comment on above: Result Comment: Plea se Note: This test does not meet current guidelines for screening and diagnosis of syphilis. This test is intended for following treatment response in patients being treated for syphilis infection. To screen for syphilis infection, a reflex cascade that includes both RPR and a treponema-specific assay should be utilized, such as Treponema pallidum (Syphilis) Screening [place] (548712) or Rapid Plasma Reagin (RPR) Test With Reflex to Quantitative RPR and Confirmatory Treponema pallidum Antibodies (878557). Performed By: #### R PRQ #### [facility] [address] [place] [address] Dr. Valeria Farris RUBELLA AB IGGon 01-10-2022 Rubella Antibodies, IgG 1.83 index Normal Immune >0.99 [facility] Comment on above: Result Comment: Non- immune <0.90 Equivocal 0.90 - 0.99 Immune >0.99 Performed By: #### U DAPHNE LANDEROS #### [facility] [address] [place] [address] Dr. Valeria Farris CBC AUTO DIFFon 01-09-2022 BASO # 0.0 103/ul Normal 0.0-0.1 [facility] Comment on above: Performed By: #### 4 [id number] #### [facility] [address] [place] [address] Dr. Valeria Farris Basophils/100 WBC (Bld) 0.4 % Normal 0.2-2.0 [facility] Comment on above: Performed By: #### 4 [id number] #### [facility] [address] [place] [address] Dr. Valeria Farris EO # 0.3 103/ul Normal 0.0-0.7 [facility] Comment on above: Performed By: #### 4 [id number] #### [facility] [address] [place] [address] Dr. Valeria Farris Eosinophils/100 WBC (Bld) 3.5 % Normal 0.9-7.0 [facility] Comment on above: Performed By: #### 4 [id number] #### [facility] [address] [place] [address] Dr. Valeria Farris Erythrocyte distribution width (RBC) [Ratio] 13.6 % Normal 11.0-15.0 [facility] Comment on above: Performed By: #### 4 [id number] #### [facility] [address] [place] [address] Dr. Valeria Farris Hematocrit (Bld) [Volume fraction] 38.9 % Normal 36.0-48.0 [facility] Comment on above: Performed By: #### 4 [id number] #### [facility] [address] [place] [address] Dr. Valeria Farris Hemoglobin (Bld) [Mass/Vol] 12.9 g/dL Normal 12.0-16.0 [facility] Comment on above: Performed By: #### 4 [id number] #### [facility] [address] [place] [address] Dr. Valeria Farris IG # 0.04 10e3/ul Critically high 0.00-0.03 [facility] Comment on above: Performed By: #### 4 [id number] #### [facility] [address] [place] [address] Dr. Valeria Farris IG % 0.4 % Normal 0.0-0.5 [facility] Comment on above: Performed By: #### 4 [id number] #### [facility] [address] [place] [address] Dr. Valeria Farris LYMPH # 2.1 103/ul Normal 1.2-3.8 [facility] Comment on above: Performed By: #### 4 [id number] #### [facility] [address] [place] [address] Dr. Valeria Farris Lymphocytes/100 WBC (Bld) 21.5 % Normal 20.5-60.0 [facility] Comment on above: Performed By: #### 4 [id number] #### [facility] [address] [place] [address] Dr. Vlaeria Farris MANUAL DIFF REQ NO Normal [facility] Comment on above: Performed By: #### 4 [id number] #### [facility] [address] [place] [address] Dr. Valeria Farris MCH (RBC) [Entitic mass] 27.9 pg Normal 26.7-34.0 [facility] Comment on above: Performed By: #### 4 [id number] #### [facility] [address] [place] [address] Dr. Valeria Farris MCHC (RBC) [Mass/Vol] 33.2 g/dL Normal 29.9-35.2 [facility] Comment on above: Performed By: #### 4 [id number] #### [facility] [address] [place] [address] Dr. Valeria Farris MCV (RBC) [Entitic vol] 84.0 fL Normal 81.0-99.0 [facility] Comment on above: Performed By: #### 4 [id number] #### [facility] [address] [place] [address] Dr. Valeria Farris MONO # 0.6 103/ul Normal 0.3-0.8 [facility] Comment on above: Performed By: #### 4 [id number] #### [facility] [address] [place] [address] Dr. Valeria Farris Monocytes/100 WBC (Bld) 5.6 % Normal 1.7-12.0 [facility] Comment on above: Performed By: #### 4 [id number] #### [facility] [address] [place] [address] Dr. Valeria Farris NEUT # 6.7 103/ul Critically high 1.4-6.5 [facility] Comment on above: Performed By: #### 4 [id number] #### [facility] [address] [place] [address] Dr. Valeria Farris Neutrophils/100 WBC (Bld) 68.6 % Normal 43.0-75.0 [facility] Comment on above: Performed By: #### 4 [id number] #### [facility] [address] [place] [address] Dr. Valeria Farris Platelet mean volume (Bld) [Entitic vol] 9.9 fL Normal 9.5-13.5 [facility] Comment on above: Performed By: #### 4 [id number] #### [facility] [address] [place] [address] Dr. Valeria Farris PLT 244 103/ul Normal 150-450 [facility] Comment on above: Performed By: #### 4 [id number] #### [facility] [address] [place] [address] Dr. Valeria Farris RBC 4.63 106/ul Normal 4.20-5.40 [facility] Comment on above: Performed By: #### 4 [id number] #### [facility] [address] [place] [address] Dr. Valeria Farris WBC 9.7 103/ul Normal 4.0-11.0 [facility] Comment on above: Performed By: #### 4 [id number] #### [facility] [address] [address] [address] Valeria Farris CULTURE URINEon 01-09-2022 CULTURE URINE Culture Observations : MODERATE GROWTH OF MIXED GENITAL RIO. NO POTENTIAL PATHOGENS SEEN. Normal [facility] Comment on above: Performed By: #### U RCX #### [facility] [address] [place] [address] Dr. Valeria Farris GLYCOHEMOGLOBIN A1Con 2021 ADA RECOMMENDATION SEE BELOW Normal [facility] Comment on above: Result Comment: ADA RECOMMENDED LIMIT 4.0 - 6.0 ADA THERAPEUTIC TARGET < 7.0 ACTION SUGGESTED > 7.0 Performed By: #### P REGQNT #### [facility] [address] [place] [address] Dr. Valeria Farris Glucose [Mass/Vol] 111 mg/dL Normal [facility] Comment on above: Performed By: #### P REGQNT #### [facility] [address] [place] [address] Dr. Valeria Farris HbA1c (Bld) [Mass fraction] 5.5 % Normal 4.5-6.2 [facility] Comment on above: Performed By: #### P REGQNT #### [facility] [address] [place] [address] Dr. Valeria Farris LETHA BOX TEST PT SEND OUTo n 01-09-2022 SENT TO REF LAB 01/09/2022 Normal [facility] Comment on above: Performed By: #### N BOX #### [facility] [address] [place] [address] Dr. Valeria Farris TYPE AND SCREENon 01-09-2022 TYPE AND SCREEN Negative Normal [facility] Comment on above: Performed By: #### 4 [id number] #### [facility] [address] [place] [address] Dr. Valeria Farris US PREG TVon 12-30-2021 [...] by: GERARD GONZALEZ Date: 2021-12-30 17:14 Normal [facility] US PREG TVon 12-15-2021 US [...] GERARD GONZALEZ Date: 2021-12-14 22:02 Normal [facility] HCG-BETA SUBUNIT QUANTon hCG,Beta Subunit,Qnt,Serum 571 mIU/mL Normal [facility] Comment on above: Result Comment: Fema le (Non-) 0 - 5 (Postmenopausal) 0 - 8 . Female () Weeks of Gestation 3 6 - 71 4 10 - 750 5 469 - 4572 6 611 - 89216 7 0553 [phone] 8 49566 -186101 9 [phone] -351949 10 90915 -400163 12 28882 -817333 14 62898 - 29140 15 47805 - 09320 16 9925 - 52847 17 4133 - 95466 18 3839 - [phone] Jamel ECLIA methodology Performed By: #### P REGQNT #### [facility] [address] [place] [address] Dr. Valeria Farris HCG-BETA SUBUNIT QUANTon hCG,Beta Subunit,Qnt,Serum 65 mIU/mL Normal [facility] Comment on above: Result Comment: Fema le (Non-) 0 - 5 (Postmenopausal) 0 - 8 . Female () Weeks of Gestation 3 6 - 71 4 10 - 750 5 217 - 7138 6 158 - 65174 7 3697 [phone] 8 56204 -394624 9 05152 -525645 10 69111 -075020 12 87903 -701375 14 46644 - 48395 15 63144 - 17245 16 9040 - 33364 17 8175 - 77093 18 8099 - 78642 Jamel ECLIA methodology Performed By: #### U DAPHNE LANDEROS #### [facility] [address] [place] [address] Dr. Valeria Farris HCG-BETA SUBUNIT QUANTon hCG,Beta Subunit,Qnt,Serum 18 mIU/mL Normal [facility] Comment on above: Result Comment: Fema le (Non-) 0 - 5 (Postmenopausal) 0 - 8 . Female () Weeks of Gestation 3 6 - 71 4 10 - 750 5 217 - 7138 6 158 - 25584 7 3697 -522556 8 37186 -600431 9 23221 -444281 10 26449 -049709 12 05493 -544492 14 83465 - 56779 15 58139 - 44795 16 9040 - 80939 17 8175 - 54713 18 8099 - 76274 Jamel ECLIA methodology Performed By: #### G LU1HR #### [facility] [address] [place] [address] Dr. Valeria Farris PREG QUANT HCGon 10-05-2021 HCG QUANT <1 Normal [facility] Comment on above: Performed By: #### P REGQNT #### [facility] [address] [place] [address] Dr. Valeria Farris HCG RANGE SEE BELOW Normal [facility] Comment on above: Result Comment: 5-50 0-1 WEEK 40-300 1-2 WEEKS 100-1,000 2-3 WEEKS 500-6,000 3-4 WEEKS 5,000-200,000 1-2 MONTHS 10,000-100,000 2-3 MONTHS 3,000-50,000 2ND TRIMESTER 1,000-50,000 3RD TRIMESTER Performed By: #### P REGQNT #### [facility] [address] [place] [address] Dr. Valeria Farris FREE T4on 09-12-2021 Free T4 [Mass/Vol] 0.88 ng/dL Normal 0.76-1.46 [facility] Comment on above: Performed By: #### P REGQNT #### [facility] [address] [address] [address] Valeria Farris TSHon 09-12-2021 TSH 1.564 uIU/mL Normal 0.358-3.740 [facility] Comment on above: Performed By: #### 4 [id number] #### [facility] [address] [place] [address] Dr. Valeria Farris TSH RANGE SEE BELOW Normal [facility] Comment on above: Result Comment: <0.3 4 UIU/ml HYPERTHYROID 0.34-5.60 UIU/ml EUTHYROID >5.60 UIU/ml HYPOTHYROID Performed By: #### 4 [id number] #### [facility] [address] [place] [address] Dr. Valeria Farris US VENOUS DOPPLER L [...] by: GERARD GONZALEZ Date: 2021-09-12 14:31 Normal [facility] Coding Summaryon 10-16-2020 Coding Summary HTMLBase 64 IzdwhoscBGz9qNm+PGhlYWQ+ WT0CTNKlU37iyZPpgB2YB8oQ CC7EYXGVEFBKXR4RYD2dcFD8 VEgzM6ZnwaPy VztoaEYtYF93XSk2FCR8nMbj ALoluX3cdLLuR8y9UuTsPZ92 qW42TEnzHLCeAdI6YkEvicny bWFy O3nzSsKvmTXiOxw+PHRhYmxl IHdpZHRoPScxMDAlJyBzdHls MM4uNu3pFEGcFRRbyHlivGUx OiBj k1gkCPHqCFlnAP0ziKohZ7Ta oDG1MAAtf3i4Sy38aTE+PHRk XIA0mAaiXLrjd392JxCwv6on IDM3 wVYpPJloXML2H84ux1G2HJIn HCXlWSO4xYK4bS1pmQshztje D6PfbUUtSlJ2RJX9hNHioZ3t bGln dngppA1fWgg+Q16ZAD7OKVJA AF9AEzt8Q1UjYovokRF+PC90 YVTjFP61aLFktMIiq1zdeKo0 JzEw SFCgIRO7lNcaAPrxc3BgHSRe R56rgBWau4Q8BUPalJeikSRs YuXmnIN3pX1vXFeibarwj5ev dzsn Omnrl2vgvx82tD95Q39lJXnc KSFkYPC7DQQiIJTpwWhupe3x zD1fPr2+AHltc9byp8yljIr2 IjIw WDYowySoyCzsOWU8h5WkCd63 Q5QveHjgs6KeOrs1rh22dFEu k6H6sIR0BBeiYIXbrI9gMEub ZnQ6 WXFfGqMvbT00mIVcTPkwHn2g yFamqIvhVD9dUHIoenvwEZTw oG8aYIJrjXEnaCbrRS1mWRFo bjtm r525CjRsJHT5GUOesGSrC6Ii sW9vQdXjQAZgMCBpK8YmcMCq NBunQ474NZecEqK1LYAzhtCf Y2Fs DTPhgUkqQaV8o3I8Xy8Hk7Eu npmrRNL0FKjkCNT4TbG4VrVs TbS6D6FzNfi7NZYmrHumMD0u J3Bh GANmxohqipqshAK8OPAnKUIt tR75pIQrEXeeEv4hf4X3c807 QLIsDUEquO60Ug7scRkbZATw dCBU xP6gmqqup2mvbojkUxFyZJXj TVt3ZWj7UORejMdhPnFvNSR0 KyI7DCC1qQDugI0djVdwoloi dG9w Oyc+D76bcC7jSQC2AJU1qovx ZBRmppVeYF49EX87E7WwUppa dGFibGU+SHZzpxEhsUwyVA3l YmFj a7xis1MbLOzzN4MrHKQhQIvm Kna3JGDeMUF9eZI3wH0pSFTe BBrxa4U2gPS2C6WcsnIeel9v b2xs MUDvZRjbG44orXOaw3G9HWSs fXY0XSQhmJjmEgXuyN68Vaz+ YLOeuObou1BaKwazx2aoa8jq dGg9 ZuNoCBIuybWpsLkoMIX6h5Nr Dk70Z46tRRixXZMmLPRaCHVg CHShjKkabz7ksS7yCa4+PGNv bCB3 vUV1hW2tYCIbYwR9KZxpO353 ZfDyyHVsKespc2agz3vuqTv4 RpSuEVGxmtCcdVswEGL3m9Rp Lz48 I46eRKeqHZAnXHWeZZFwIWYh uRzmsj2csN1xYj9+TU6nf4kk dr20xE72yWG+MEHhPDI6pBjh PSdw WVDbyC6jXPinLyK5HRQhQhKi cN47zBWgLVphIl3fjEwdrAym EI8oVSXyzdkru965YiWdy6pm IDEw rMDiQZfwIHO3Q14gq5I8KZDo HENlQNW0uYA9aR2rlHxtmpai bGVmdDsgdmVydGljYWwtYWxp Z246 IHRvcDsnPlBhdGllbnQgTmFt SBz9R1FzRne0ZIJinNfxCF8h cZRxJTjiTu5oxTjluAmmHL4v NTBp qpqpy148EqFum6fqMPNrlIVm KWctVWW8O79ju8O4HWHdWKVo AKI0kCM5jG2cjZhglfkohRGm dDsg ioHecBdkWHynHAfhX799SJYm yVggQySwnfTbDNBnfOS6PT03 FY54pFCwp7N8wIK9E8CbJQVd bmct xwhpwZN3UURoQVMisO74Qd8m pYveNn0qPDYbEIU4ZBAfzBHy H7XajN9rXxFhQJFpDPVcZ9Ud eHQt NOybB750BDfoWoI8DVSgeuWf E0PqSJBrxGtbBnT7y7Z9Mc2P I2Z2OW00QY31zVSmk7J0vPK5 J3Bh BOFcvefidgfopDL6WWQxGLDn eY09Of3ohCsuCz5vJVVtQZW2 JTHxiAPdE9BzeC9yJeDiECSa MDAw Z0WvjXLbOCpiJ705DTpkQiI7 YZMwvfIoI6GcBNGrbInwHbF9 s4N4Gh4ETUk5TR23KB28gGDt c3R5 mDR8B8HnXCLcapvmdozfdXL4 MEKqMBXtpW89Tb0ftEloTd3k OXOaWUR8RIUlsLWuQ4TglT7c OiAj TASeFKHgW8IgwPTlIBeeK494 FPbaZfY2LJEbqnFmN4OiMUEi iBhtJyT6f1S9Wp9SAAKkKG37 IFR5 uLE6LF33YE89J7ViTtejeMCz bGU+PHRhYmxlIHdpZHRoPScx AFHrXmEnuJuxIT3kKw1tXEMx LWNv wMlfyXYeHwVkg8kzPXEqWZfp GY0ieEhhY6LoqYH0CFDfx5p8 Ox97Z29vC4BdnHO+PGNvbCB3 aWR0 qC7wGlOmLeP2YXwbS952IsJu bWYmApmqn8tan2mxgLd2BpA3 DTRkvoQjqStzNMT7s0HiJv11 Y29s IHdpZHRoPSIxNSUiIHZhbGln xx8kbF2sEo3+IJKvqLF5lTZ9 iA6rYbWaJiQ2MXzwJ900DuKf cCIv Tprtx9znf3dwpMm2QoHsROTi vdHxpCcmQIW1p3HcHh12T7Qw iZntg4JtKlm3qe59bYIii8K8 bGU9 J7HtYGOzkjyhvQQlpBbdNH0o ESYkjlnyHPWmwU3kBUBsG6q6 OhFqQwF0AIvwI6WekyF1EYHr cHQg YGawYNA7A15rt3A8QCWlRBPo IUR6cEU8uM1beQqmauwkaBTz vXzuosLdoBuoDAhcKVojT685 IHRv rOjxEZKtfH4sTGSssCWkoJbs ZJ3aVMZfgdmvGpGSSkWKStFX LCBNRUdBTiBNQVJJRTwvdGQ+ PHRk ATT5cMscHBpdLDFdbP3qSMCw G8m4YnSfYaV8OAvnL6VrUFZc mckrZa71kT0rKrZnMbY3HRkd O2Zv qiN7MJRykPLxIZosMQZ2B63l n1V7IBNeZQTpIAN8yBR4lJ3d bGlnbjogbGVmdDsgdmVydGlj YWwt WEmsC133CRVmkNkkEdVzPyL0 GwT6LZN5Q1KoTmd3GFNkvCmk YI9pwZCqVKucSf9qyAgfeNye MC4w HXArohgfTPSiiK1tPYWomFLw lQstKU7tUKSgnguzg643JeZd GDY8JKPvqGBuY5SxrX2cXpOf MDAw VRFfK3CxiUChDDgiS521XYdw GmU9YXLahgCrT7FfTIAswGxc HtH5z8G1Qa6lLUKPHQWhyiaj dGQ+ VAOkDYL7cVgoGAmjDOJrxG3b JSXhN1t1KmSiHzP2TWlwL3Cb SGAfwpcnQy96dY6hKhDmRxA4 MGlu Q2FxupL7KZLjeVSvLRolFOK8 G19fz0T2ICElJUIqGBZ3yNG3 xN9ghAoufpigcCWyyMrrmpYp dGlj NTrsZMafL839YKBqzLxlObCH TUFMRTwvdGQ+VQYtGXP3dVrz WUsqKAItfO2cGOZsJ0v3YgIi LjA1 ONntN1NmWNZkldimBo12wO6a OpUmMnV5VVnnO0WeftN4FAJj aZUnIOwzZVK6X68el7B9ZRWr MDAw UOX2sBT2fO2seUtcrvbucPWg uHqsmeOtoIjoMTfsVXcgE140 VIXypUlnXn3QCE03DL95Z8Mt Pjwv dGFibGU+PHRhYmxlIHdpZHRo GMpuAKDxRuYvzZsxIA0dJy2v TQGiEMPnhTdsjIUuOnYoj6st YXBz LVrmWD1ibVkvB4CjhSU2SBBq l8w5Pe90L91aN2SenIW+PGNv qCN3xMT9iC6hTzOsDxK1ETso Z249 WuYvbJCvOlhsq5uwe5usaOj5 PgUnSVCfmjXknYidKTB7e0Uj Qg40M27pXPxhJSTwSJSvHUPx IHZh oOnuaa4zlZ6tGx3+PGNvbCB3 gRO5qZ1mJyJaPhY7POgcM888 TtThpCIuFvvoY13jR7IddXN+ PHRy Ohb3QTAjbErnWI3skBMhZZhj Hv2bDNS2HyOnCiGcMFndW3Si BOYejmburvbuuQC4JKCqSOOm aW47 Jf9cvNdiTv1kDWOfCDF0DGGt tBPdM2VraL4nJmSrJQQsCLEe U6YhfUKoOYnrE269PYyaGjQ7 IHZl ovDeW8QbDEDhdWewRxD4i0A4 If9MpNhfaAHnEP2kTmInHYe5 P3TpDco6LMEgfFdfLV3ztSEv ZGlu Yw4mqTxgrZzxZO7pLTRgvzba g443VbXuj8ptVNHzwKCnEWbf FHK1V84gh8Q2PYAaOQHpHEA5 dGV4 pU8qdZqsesjemNLifJqlbfZx cEptSBdgICyrS895MPPwxMlh StDSSgu8Z8LaQrm3FRJbdUae ZT0n iYHwOClpJv8fuEgegWzuDD6s LOJxpwiut772PnDxz7llNPXl sNWtQJqaBRV8D82jg2G0OZLi MDAw DKF3qTI5tA0pzRrmzvytlXDh dKhfyeQumZxzDKnvJLklT931 EBWakPdoAu0RQkb8Z7OsIzm2 ZCBz dCgzAG6fdAVfAHuvXv5ojMmt sNbgGC7tZIOojxitr189OiIm w7vpZNTigRIwOOlkEHA4T64s b3I6 SBHaEIMmNCP9jRF2qA2sgMuq bjogbGVmdDsgdmVydGljYWwt PPjcV757LBRozBuvBvFgfHTb Ojwv dGQ+UB89df72I0VgCzsrYjd3 JNVuJFT9vOE9rV4eMRNcPSqj e3K6hOS5R2NaaiNebd0xh9kf YXBz ZTo (more content not included)... [facility] Coding Summary HTMLBase 64 StfixxwyFBr0tFg+PGhlYWQ+ HC0MALBfI37ztRNxxB7FU6zJ FF5UTRCNQMQYFF9JTD5yvNT0 VViyI5RafrIg DzyadOXnNM95OPr6KDQ4hKue UCfauF4umSIkU9r0ThEhBP32 jV19ZZprCALcRlR1UsWgipdh bWFy K8dgRiYgxEBhDmg+PHRhYmxl IHdpZHRoPScxMDAlJyBzdHls HR4cDw7wHEJgBFQhjGhtlDEb OiBj y0ltJARnPXeaCI3pqAwtN7Ed oOQ1AAQoz4a2Io55cKA+PHRk WES7rUeoTIzdh807QcNrt0ll IDM3 iIQxQZkuIWM0F69cw3R9QSDh RTOnHTX6wZJ0yU2btEhpsvhq X2OzkJOoTgX8CGJ4fYVrtZ3o bGln qfzauK2mSyo+W13TRL3UFEUV UZ7QVmz9U1HkVeicuAC+PC90 ZZSiKV81hCDbdQKwn3gziIf5 JzEw SHTvJYR0zRzjYHfrz6YaOAUu E66djFJgl7C7KXZsgBtgjTMr ZwSorOL2mB6rPSvacypxi2hf dzsn Ukami4nvor82eA65R24nDTbq DGKsZEH4SXPpVPEhqOpzzm7s uI1rXf1+TFbjs4ilz9uecVa6 IjIw DSAoyqXpmIofCYB0x5JfEj97 J4YzvRlek4ZcHkz5py85xOAp x5M0xCG4YGpsXZElwQ0kVYya ZnQ6 HMAtUkVzcI38hDZhPHstZh3z cWftlWizZG0iIOUxwrhlQLKv kA4fNAFunTEhaLibAD8xIPIt bjtm x478SbKfICS1YNGyyYJzA1Td rS5kBmPgAZOlDUYhY8IsbVHu VFtqQ348YCvdAcY6IATjniIn Y2Fs WUTwlCblAzN1i2D3Sv6Db1Ff zbzoDFZ9RXmlTUV9AgC0FbEp UcC2Q0FcEio3TLVgrEwaPU5i J3Bh OKSkzyxrlfmunGV4BTUfOGAj bT99bHTbLVsbHb8ih5M3d092 FZOtIYAlgY30Lj9cvUusCUVz dCBU kS1kttiti6rtarttGuEbIDEa LRb3GJj6MBHnpIkmEuZcSPT9 JxN5ABW5dHLnbP9yeBjjbmui dG9w Oyc+J60hwD5uFBR9AXZ1urho NMNzjrBkBL99JX62E2XaVgyv dGFibGU+WUMarzAytCdsZM6x YmFj r6iiu0XqFLoaL5XxPCLkTTea Njp9KADcFKX4nWS6uM1kPPBj ZAuhz8S7jQH9P3NztoNrds2m b2xs KSNdXOilG51gnJAhd3P3EVSg tRG4EYCavTaiFyQgyM32Ifo+ FKOsaUgxr1YuRvtxa3eom3ve dGg9 EoHdQFGidqXosHmkKXV6m0Ou Lg95E63hPRfxDCXvHOBvEWHm GWAqxZxdby5abK0kKx4+PGNv bCB3 eGZ7iC2eFIBsSnC0HQccO068 IrXjrBFdHnmmz6kma0bbbCs7 XmZnKNIulrGkiIhcMSF8t6Mk Lz48 U08qXVnuZBBzFRFuWITzNPNd fNmdhp5khX5rEa9+YL8wp8yp de88iF49wNA+OEUeZNI8wWia PSdw WPAyeF1qLFudDjZ3JRRpLdRc eA39hHYhJWkwWx3sgMgciTcm PQ2jVWOhkyoni039RwUua2ef IDEw yFJeWRhsYJL5U13ks3J2AFEh BBKmSJL5cHO6yP8noXqznpvo bGVmdDsgdmVydGljYWwtYWxp Z246 IHRvcDsnPlBhdGllbnQgTmFt LGm1Y0JxSin7BPKssDyxHB3d mLRiORdhOl7rpAwduMdyEH6y NTBp idekz031AcDld4wdSLUhyCAh ZMxgXDJ1Q34zh7T3HLVoMTMj DVP7cZX0lQ6apOiqegiknZHj dDsg qkGqxPyfQAssJXxzS637UBSx aMzoYjHlubXqTBBjcEK6ZJ09 ND76qIKqd1K4gOK4F9TuGNUn bmct joixsAE9LHEyKJPblY09Ph8j zOgkMe1aGINwAXR4BLCxuLRb L2XyiT3nUuNxDDAcXMPoE0Xc eHQt IQmnJ847MBlbQqR0HMObppLy R9XrDIPxdKdnIzS7d7Z6Hk4O O7A9BW76WN43fGBzt7O6lOJ7 J3Bh BSVmeaingyzjrSE6OAWhKYYf yS16Fz2gtPmrQo7mPOTqWJS5 UGVmrFErP2RlbI0oMbGfQBNy MDAw K6WtxGKfLWeoG553EZmqSlM7 PGVjmoZzX5IkCVOcfCgjNbI4 b2S5Cs5XMVq4VU41AX31lFTt c3R5 eAZ6V0PrGWTypvqczkltxCT4 EFKmIXPlaM79He7tgEouZs3e QPDtHIG9DHBvyGNkO2XqsD3t OiAj EBYyYPQyB4QfyPKbCHmoM551 HOdsRyB2RNKjhvBjR7GrKXMm dKraNkA8w7L0Xt4UFUObEU42 IFR5 bNG0ME88ZT75R6YmUrdoxSVe bGU+PHRhYmxlIHdpZHRoPScx NGVjAyAsvSfdGB9rUg8qINNs LWNv hAzolWWuFeItg9urGXYqVIdz KO2knOnwG3JbiZJ3GGDqh2r6 We59M20gM9XuoVL+PGNvbCB3 aWR0 eM5bGqTjMvO8TGeeB711RvZc iYUsRxhsr4ptv4mcyHb8AvZ7 ZQOoohJrpIudRQE5u7EhCq82 Y29s IHdpZHRoPSIxNSUiIHZhbGln ed8paW8aCx9+TJHngIG9hKM1 aT4cBxMkKwJ0CRzwS647VgWv cCIv Iapjy5grf1shhAj3MxQuOGWa tnRsfVdoZEX7d6QtPb24K1Mk cFeck5BiDse7pg61yXTgg7L7 bGU9 T4FjLUTktxbwgKUclYouMD2q QFOwpxlqPHEabX4gOIGgI9t5 UaBrCwY1RHewL9TbgoZ0TXPa cHQg CSmmOCT9G72cy8A0UQQzLNEf FOR7iYC5vJ1wtWtzhlnxxIHm dVdtgrHaoWejIVpzUHxmX927 IHRv pGoiTEMjlB6nKOYurMYcoRus PE1xBKCipswqOjKJSeVZSfLB LCBNRUdBTiBNQVJJRTwvdGQ+ PHRk MMA7aMinMVnoAYHryM8fPHRg D0x5MxZvBbH7FEbvA0QcULQh ekgkXn88yH7tLzPzLvR6IQnx O2Zv pcE0XVCdmBBsIHbvCLZ9J95y f6C6UMSbXZQfGSK4dJS7nK0n bGlnbjogbGVmdDsgdmVydGlj YWwt SIobV428XQQhjJrqRlLxPpI9 FsN2TNQ5K9ScHvx8UMFyoGvk ND5kjAHtEAoaDu3odDecyGrg MC4w FIRnxrfsZBZcnC3fFLKrrNXk nVsyDZ8uDFBertxiy960ApFf EIO0WSHlmNOrR4VrlL9yCqIy MDAw GHLjY4UumOCmGKnfR081LHbo DuS9ZHEeklJhC5GnIEQobPhn LmU6i1Z9Ya0gOZLQFQSxpqdz dGQ+ YFXeKHS3dVugBLplFNRpaR0z NMViN0i6TrVuNqD6GAjfM6Lk VHGudbfnGw22zL1zSeZaFeE5 MGlu X5CtxbX6UTFusWQwJDutSYE3 S24hi8W4XARrCYIsVUW1hZS7 yY5uxYjjtgrfxNJhhOjbxjWm dGlj TPetTLcfS738BMEwbCpnRwKR TUFMRTwvdGQ+JOUtFFG2vPdy YMbzUENyqE1xPUIhU1i4YkPl LjA1 DImuQ6KbSBPgehhaRu21sF1x EpBiSgM8NJedG1WacxM4SQEw nDYyTTspECT9B75jl4G0CXCt MDAw WUN5xMD9rI0mdXcydwumjSIh eXtbmoQslWefOMkgOWngJ016 VMAtaXhwAzZxGSUhRL6gnSvf dGQ+ WB60ti59A1QiBsjsOda3NUIn JJJ4mIE1mG3nMDDtMKrsj5O1 yHE2U0AvxuNfkn0qy3swNRMa ZTog W63ayUNuf8R0FQHvbWR9MDOe nIjdGySquS56Ibx+PGNvbGdy t0PdHuxrx4eej0cjhWz8IgTb JSIg niXdjCclDCO9d3MxQb78L60q IHdpZHRoPSIzMCUiIHZhbGln lh3xbQ7wAa8+ZMWleJI0tTS5 aD0i TlEiCfO6VUqmG294NqQwmBPc Ofbuq2gwy6okvIx5NwWoVDSo eyJtnTunUPK5b1WdNo55I5Td bGdy a1GeSfu8dr39vOCsk7P2gRA3 D8UcKYKevqwyoUAqzOmaCN9c CJCxbnadNZHjdK2vSIVmP2z1 OiAw JxS9UUqkP0GdhzD5CZBejIKq UIDdnXNBuA6mxzqyd1quamph KsNnHSBzNHz6PRo0FSCksExc OiBs CTP1DnR8DSM6oFYtvO5rfIqw kusgwL8kOyk+FKw9u2gxfEQw VB5jbBS4OE01QN29wTUdt6G8 bGU9 L6QwOIArncszesnuoXQ6YINq GTXjrP70Ne8ixEmdXo2lIEBb XMZ4QQQdrEBeU2JgbW2mOfZa MDAw DKDcI2FumUJyFMepO279NFra DyX8QQNdqtOlS5JiQANzdYhp UtV8b4O7Zp9WGV67FI18UN64 dGQg o3R8dWK2T3QfZOGnvdvtwbiz cPP5LZHhLUDtnG26Ps5ysPso Uo0pYYSrPCY8BYJgmUKuH5Jr bG9y BsIaUFMvNOWiH1PyxYDtHLpp C338UGttZwI2JFKkzrTpQ9Xt XQUufLozHrH2l6D3Yy4NDs88 PC90 UD19sOJcq7P6jQO0M1BqFGRh byqvmmxaaIZ8KLEoITWlyD64 Td4aiPyaTt6bLZOjLEM1HUCn bWVz L2ZriQ6uIfOxHXXmIDIgG2Ow mGLcHExcU953DZawNpA8DJIv mpMfQ1ZoJEVqwPhnBhX1t2V3 Jz5Q BMtwuxz8J6ZtDmesoZW+PC90 CSIpVY72mADyoSDgk6mqtPr6 CkRkFHTiNQC5fIbyMDjdp3Fp ZXIt Y29 (more content not included)... Normal [facility] .Auto Diff 10-11-2020 Auto [place] % 6 % Normal 1-12 [facility] Comment on above: Performed By: #### 7 [id number], [id number], [id number], [id number] ####[facility] (DEFAULT)[address] [place] [address] 53480 Baso Abs# 0.0 x10 Normal 0.0-0.2 [facility] Comment on above: Performed By: #### 7 691610, [id number], [id number], [id number] ####[facility] (DEFAULT)[address] [place] [address] 15065 Basophils/100 WBC (Bld) 0.3 % Normal 0.2-2.0 [facility] Comment on above: Performed By: #### 7 977406, [id number], [id number], [id number] ####[facility] (DEFAULT)[address] [place] [address] 95693 Eos Abs# 0.2 x10 Normal 0.0-0.4 [facility] Comment on above: Performed By: #### 7 952952, [id number], [id number], [id number] ####[facility] (DEFAULT)[address] [place] [address] 42125 Eosinophils/100 WBC (Bld) 3.4 % Normal 0.9-4.0 [facility] Comment on above: Performed By: #### 7 663808, [id number], [id number], [id number] ####[facility] (DEFAULT)[address] [place] [address] 65668 Lymph Abs# 2.5 x10 Normal 1.3-2.9 [facility] Comment on above: Performed By: #### 7 476891, [id number], [id number], [id number] ####[facility] (DEFAULT)[address] [place] [address] Lymphocytes/100 WBC (Bld) 41 % Normal 14-48 [facility] Comment on above: Performed By: #### 7 688747, [id number], [id number], [id number] ####[facility] (DEFAULT)[address] [place] [address] [place] Abs# 0.4 x10 Normal 0.0-0.8 [facility] Comment on above: Performed By: #### 7 458915, [id number], 53721591, [id number] ####[facility] (DEFAULT)[address] [place] [address] Neut Abs# 3.0 x10 Normal 1.5-9.2 [facility] Comment on above: Performed By: #### 7 905535, [id number], 04546291, [id number] ####[facility] (DEFAULT)[address] [place] [address] Neutrophils/100 WBC (Bld) 50 % Normal 44-88 [facility] Comment on above: Performed By: #### 7 176909, [id number], 97953391, [id number] ####[facility] (DEFAULT)[address] [place] [address] CBC w/ Auto Diffon Erythrocyte distribution width (RBC) [Ratio] 13.2 % Normal 11.5-15.0 [facility] Comment on above: Performed By: #### 7 170779, [id number], 48022262, [id number] #### [facility] (DEFAULT) [address] [place] [address] Hematocrit (Bld) [Volume fraction] 36.8 % Normal 33.7-40.4 [facility] Comment on above: Performed By: #### 7 886110, [id number], 87117637, [id number] #### [facility] (DEFAULT) [address] [place] [address] Hemoglobin (Bld) [Mass/Vol] 12.4 g/dL Normal 11.3-15.9 [facility] Comment on above: Performed By: #### 7 526589, [id number], 24773179, [id number] #### [facility] (DEFAULT) [address] [place] [address] 71396 Instr WBC 6.1 x10 Invalid Interpretation Code [facility] Comment on above: Performed By: #### 7 149955, [id number], 94743032, [id number] #### [facility] (DEFAULT) [address] [place] [address] 94955 Man Diff? Auto Normal [facility] Comment on above: Performed By: #### 7 152737, [id number], 45368352, [id number] #### [facility] (DEFAULT) [address] [place] [address] 96431 MCH (RBC) [Entitic mass] 29 pg Normal 24-34 [facility] Comment on above: Performed By: #### 7 326799, [id number], 88144257, [id number] #### [facility] (DEFAULT) [address] [place] [address] 77015 MCHC (RBC) [Mass/Vol] 34 g/dL Normal 26-37 [facility] Comment on above: Performed By: #### 7 108653, [id number], 77100509, [id number] #### [facility] (DEFAULT) [address] [place] [address] 26919 MCV (RBC) [Entitic vol] 87 fL Normal 81-100 [facility] Comment on above: Performed By: #### 7 518198, [id number], 15185744, [id number] #### [facility] (DEFAULT) [address] [place] [address] 99556 Platelet 204 x10 Normal 138-427 [facility] Comment on above: Performed By: #### 7 125661, [id number], 16845479, [id number] #### [facility] (DEFAULT) [address] [place] [address] 70802 Platelet mean volume (Bld) [Entitic vol] 9.6 fL Normal 6.3-10.2 [facility] Comment on above: Performed By: #### 7 483345, [id number], 98975648, [id number] #### [facility] (DEFAULT) [address] [place] [address] 11078 RBC 4.25 x10 Normal 3.70-5.30 [facility] Comment on above: Performed By: #### 7 281448, [id number], 35011610, [id number] #### [facility] (DEFAULT) [address] [place] [address] 48779 WBC 6.1 x10 Normal 3.5-10.5 [facility] Comment on above: Performed By: #### 7 753565, [id number], 06755838, [id number] #### [facility] (DEFAULT) [address] [place] [address] 57903 CMP Standardon 10-11-2020 Albumin [Mass/Vol] 3.9 g/dL Normal 3.5-5.0 [facility] Comment on above: Performed By: #### 7 974163, [id number], 65606180, [id number] ####[facility] (DEFAULT)[address] [place] [address] 15828 Albumin/Globulin [Mass ratio] 1.3 {ratio} Low 1.4-2.6 [facility] Comment on above: Performed By: #### 7 821378, [id number], 50691525, [id number] ####[facility] (DEFAULT)[address] [place] [address] 41580 Alk Phos 67 IU/L Normal 32-91 [facility] Comment on above: Performed By: #### 7 335930, [id number], 48509275, [id number] ####[facility] (DEFAULT)[address] [place] [address] 27393 ALT [Catalytic activity/Vol] 28.0 U/L Normal 14.0-54.0 [facility] Comment on above: Performed By: #### 7 465792, [id number], 87309131, [id number] ####[facility] (DEFAULT)[address] [place] [address] 62656 Anion gap [Moles/Vol] 14.0 mmol/L Normal 5.0-19.0 [facility] Comment on above: Performed By: #### 7 016782, [id number], 65353495, [id number] ####[facility] (DEFAULT)[address] [place] [address] 48052 AST [Catalytic activity/Vol] 16 U/L Normal 15-41 [facility] Comment on above: Performed By: #### 7 682881, [id number], 75591333, [id number] ####[facility] (DEFAULT)[address] [place] [address] 66829 Bili Total 0.3 mg/dL Normal 0.3-1.2 [facility] Comment on above: Performed By: #### 7 516018, [id number], 86291115, [id number] ####[facility] (DEFAULT)[address] [place] [address] 54233 Calcium [Mass/Vol] 9.0 mg/dL Normal 8.9-10.3 [facility] Comment on above: Performed By: #### 7 615780, [id number], 02818178, [id number] ####[facility] (DEFAULT)[address] [place] [address] 78948 Chloride [Moles/Vol] 109 mmol/L Normal 101-111 [facility] Comment on above: Performed By: #### 7 094321, [id number], 27130959, [id number] ####[facility] (DEFAULT)[address] [place] [address] 64586 CO2 [Moles/Vol] 21 mmol/L Normal 21-32 [facility] Comment on above: Performed By: #### 7 283388, [id number], 47725906, [id number] ####[facility] (DEFAULT)[address] [place] [address] 70904 Creatinine [Mass/Vol] 0.90 mg/dL Normal 0.60-1.30 [facility] Comment on above: Performed By: #### 7 239291, [id number], 76621378, [id number] ####[facility] (DEFAULT)[address] [place] [address] Globulin (S) [Mass/Vol] 3.1 g/dL Normal 1.5-4.3 [facility] Comment on above: Performed By: #### 7 140152, [id number], 49386119, [id number] ####[facility] (DEFAULT)[address] [place] [address] 70785 Glucose [Mass/Vol] 95.0 mg/dL Normal 74.0-118.0 [facility] Comment on above: Performed By: #### 7 825904, [id number], 52880681, [id number] ####[facility] (DEFAULT)[address] [place] [address] 28442 Osmolality 282 mOsm/L Invalid Interpretation Code [facility] Comment on above: Performed By: #### 7 239358, [id number], 58038437, [id number] ####[facility] (DEFAULT)[address] [place] [address] 04305 Potassium [Moles/Vol] 4.0 mmol/L Normal 3.6-5.1 [facility] Comment on above: Performed By: #### 7 623060, [id number], 30742403, [id number] ####[facility] (DEFAULT)[address] [place] [address] 54573 Protein [Mass/Vol] 7.0 g/dL Normal 6.5-8.1 [facility] Comment on above: Performed By: #### 7 562973, [id number], 72461315, [id number] ####[facility] (DEFAULT)[address] [place] [address] 82833 Sodium [Moles/Vol] 140.0 mmol/L Normal 136.0-144.0 [facility] Comment on above: Performed By: #### 7 555150, [id number], 85653308, [id number] ####[facility] (DEFAULT)[address] [place] [address] 87570 Urea nitrogen [Mass/Vol] 20 mg/dL Normal 8-26 [facility] Comment on above: Performed By: #### 7 253408, [id number], 77748749, [id number] ####[facility] (DEFAULT)[address] [place] [address] 14130 Urea nitrogen/Creatinine [Mass ratio] 22.2 mg/mg High 4.6-16.2 [facility] Comment on above: Performed By: #### 7 [id number], [id number], [id number], [id number] ####[facility] (DEFAULT)[address] [place] [address] 16750 Discharge Instructionson Discharge Instructions [id number] TIFF Normal [facility] ED Clinical Summaryon 2020 ED Clinical Summary [facility] - Emergency Department [address] [place] [address] ED Clinical Summary PERSON INFORMATION Name: YANI WOODY Age: 30 Years Sex: FEMALE : 1990 MRN: Acct#: Visit Reason: Pelvic pain; PELVIC AREA PAIN Arrival: 10/11/2020 09:15:57 Discharge: 10/11/2020 12:33:00 LOS: 000 03:18 Check In: 10/11/2020 09:15:57 Checkout:10/11/2020 12:33:00 Address: [address] [place] [address] PCP: Provider, None PROVIDER INFORMATION Provider Role Assigned Unassigned DAVID GALVAN ED PA 10/11/2020 09:24:51 Linn Decker [employer] Nurse 10/11/2020 09:28:06 Kristi Case [employer] TE[employer] Nurse 10/11/2020 11:45:12 VITALS INFORMATION Vital Sign [...] test which were negative. 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 NECK: -Supple (hghv-cn-ranrt): non-tender. CARD: -Rate and rhythm: Regular -Edema: No -Calf pain: No RESP: -Respiratory effort and chest excursion with respirations: Normal -Breath sounds equal bilaterally: Clear -Wheezes: No -Rales: No BACK: -Signs of pain with movement: No ABD: -Distended: No -Bruits: No -Bowel sounds: Normal. -Deep palpation: Non-tender, soft, no guarding or r (more content not included)... Normal [facility] ED Note - Physicianon 2020 [...] test which were negative. 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 NECK: -Supple (vqkj-ed-adgbq): non-tender. CARD: -Rate and rhythm: Regular -Edema: [...] report. I r (more content not included)... [facility] ED Note-Nursingon 10-11-2020 ED Note-Nursing Patient arrives to [facility] ED via private car with c/o [...] light within reach. Will continue to monitor. [facility] ED Patient Summaryon 021 ED Patient Summary [facility] - Emergency Department [address] [place] [address] PATIENT DISCHARGE INSTRUCTIONS Patient Information Name: YANI WOODY Age: 30 Years Date of : 1990 Reason For Visit: Pelvic pain; PELVIC AREA PAIN Arrival Time: 10/11/2020 09:15:57 Primary Care Physician: Provider, None Attending Physician: Linus Neumann MD Comment: Visit Diagnosis: Diagnoses This Visit Ovarian cyst (N83.209) Pelvic congestion syndrome (N94.89) Pelvic pain ([id number] -[id number]) Prescription Information: If you have been given a prescription for narcotics, seek immediate medical attention if you have any difficulty breathing or any sudden status changes such as confusion and sleepiness. If you or anyone you know is experiencing suicidal thoughts, mental health, alcohol and/or drug addiction problems; contact the [facility] 13/11 Crisis Hotline -Text 4HTPC vg 385450. If you received any narcotics, sedation, or [...] any legal documents With: Address: When: Cordelia [employer] [address] [place], [place] [id number] Business (1) Within 2 to 4 days Comments: Follow-up with fast food shift supervisor in the next few days for reevaluation. Return at anytime for reevaluation or if you have worsening symptoms, vaginal bleeding, chest pains, shortness of breath or any other problems. Continue to stay hydrated. Medication Information: The exam and treatment you received today in the [facility] Emergency Department were for an urgent problem and are not intended as complete care. It is important for you to follow up with a doctor, nurse practitioner, or physician?s day care assistant for ongoing care. If your symptoms [...] so we can reach you if necessary. [facility] Emergency Department has provided you with a complete list of medications post discharge. Please inform your manager long term care/provider of your visit and for further instruction [...] Image. Unabl (more content not included)... Normal [facility] 10-11-2020 Tube Collected Yes Invalid Interpretation Code [facility] Comment on above: Performed By: #### 7 [id number], [id number], [id number], [id number] #### [facility] (DEFAULT) [address] [place] [address] 75203 Lactic Acidon 10-11-2020 Lactic Acid 12.4 mg/dL Normal 4.5-19.8 [facility] Comment on above: Performed By: #### 2 [id number] ####[facility] (DEFAULT)[address] [place] [address] Test Urine 1on U Preg Negative [facility] Comment on above: Performed By: #### 3 [id number] ####[facility] (DEFAULT)[address] [place] [address] 92780 U Preg Internal Control Pass [facility] Comment on above: Performed By: #### 3 [id number] ####[facility] (DEFAULT)[address] [place] [address] 30860 UA Purgz7ls 10-11-2020 UA Bacteria Rare [facility] Comment on above: Performed By: #### 2 [id number] ####[facility] (DEFAULT)[address] [place] [address] 43161 UA RBC 0-2 [facility] Comment on above: Performed By: #### 2 [id number], [id number] ####[facility] (DEFAULT)[address] [place] [address] UA Squam Epi Few [facility] Comment on above: Performed By: #### 2 [id number], [id number] ####[facility] (DEFAULT)[address] [place] [address] 51845 UA WBC 0-2 [facility] Comment on above: Performed By: #### 2 [id number], [id number] ####[facility] (DEFAULT)[address] [place] [address] 60190 UA w Micro, if Ind Standardo n 10-11-2020 Micro? Indicated [facility] Comment on above: Performed By: #### 2 [id number], [id number] ####[facility] (DEFAULT)[address] [place] [address] 42958 Breakpoint UA Normal [facility] Comment on above: Performed By: #### 2 [id number], [id number] ####[facility] (DEFAULT)[address] [place] [address] 13398 Color (U) Yellow Normal [facility] Comment on above: Performed By: #### 2 [id number], [id number] ####[facility] (DEFAULT)[address] [place] [address] 57938 Glucose (U) [Mass/Vol] Negative Normal [facility] Comment on above: Performed By: #### 2 [id number], [id number] ####[facility] (DEFAULT)[address] [place] [address] 56977 Ketones Ql (U) Negative Normal [facility] Comment on above: Performed By: #### 2 [id number], [id number] ####[facility] (DEFAULT)[address] [place] [address] 21819 UA Bilirubin Negative Normal [facility] Comment on above: Performed By: #### 2 [id number], [id number] ####[facility] (DEFAULT)[address] [place] [address] 43373 UA Blood TRACE Abnormal NEGATIVE [facility] Comment on above: Performed By: #### 2 [id number], [id number] ####[facility] (DEFAULT)[address] [place] [address] 80776 UA Clarity CLEAR Normal CLEAR [facility] Comment on above: Performed By: #### 2 [id number], [id number] ####[facility] (DEFAULT)[address] [place] [address] 06752 UA Leuk Est Negative Normal NEGATIVE [facility] Comment on above: Performed By: #### 2 [id number], [id number] ####[facility] (DEFAULT)[address] [place] [address] 26402 UA Nitrite Negative Normal NEGATIVE [facility] Comment on above: Performed By: #### 2 [id number], [id number] ####[facility] (DEFAULT)[address] [place] [address] 34666 UA pH 6.0 Normal 5-8 [facility] Comment on above: Performed By: #### 2 [id number], [id number] ####[facility] (DEFAULT)[address] [place] [address] UA Protein Negative Normal NEGATIVE [facility] Comment on above: Performed By: #### 2 [id number], [id number] ####[facility] (DEFAULT)[address] [place] [address] UA Spec Grav 1.025 Normal 1.001-1.035 [facility] Comment on above: Performed By: #### 2 [id number] ####[facility] (DEFAULT)[address] [place] [address] UA Urobilinogen 0.2 mg/dL Normal 0.2-1.0 [facility] Comment on above: Performed By: #### 2 [id number] ####[facility] (DEFAULT)[address] [place] [id number] Urine Source Clean Catch Normal [facility] Comment on above: Performed By: #### 2 [id number] ####[facility] (DEFAULT)[address] [place] [address] 199[address] US Pelvis Non-OB Completeon 10-11-2020 US Pelvis [...] Dominguez MD 10/11/20 12:29 p Technologist: NATASHA [facility] US Transvaginalon 10-11-2020 US Transvaginal [...] MD 10/11/20 12:29 p Technologist: PM [facility] Video Visit - Telehealtho n 01-28-2020 Video Visit - Telehealth Chief Complaint Medication follow up via Digisc[employer] video Subjective Interval History/HPI This visit was conducted via two-way, real-time interactive video communications from my office using Crosswise due to the restrictions of the COVID-19 pandemic. No physical exam was conducted other than those areas of the body visible to telecommunications with the patient located at [address] [place], [place] [id number], with no one else in attendance. If [...] # 42 tab(s), Refills(s) 5, Pharmacy: [facility]/pharmacy #[id number], 156, cm, 01/28/20 8:32:00 EDT, Height/Length Dosing, 124, kg, 01/28/20 8:32:00 EDT, Weight Dosing 3. 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) Orders: lamotrigine, 300 mg = 2 tab(s), Oral, Bedtime, # 60 tab(s), Refills(s) 5, Pharmacy: [facility]/pharmacy #[id number], 156, cm, 01/28/20 8:32:00 EDT, Height/Length Dosing, 124, kg, 01/28/20 8:32:00 EDT, Weight Dosing lurasidone, 60 mg = 1 tab(s), Oral, Daily, @supper with food, # 30 tab(s), Refills(s) 5, Pharmacy: [facility]/pharmacy #[id number], 156, cm, 01/28/20 8:32:00 EDT, Height/Length Dosing, 124, kg, 01/28/20 8:32:00 EDT, Weight Dosing metformin, 500 mg = 1 tab(s), Oral, BID, # 60 tab(s), Refills(s) 5, [id number], 156, cm, 01/28/20 8:32:00 EDT, Height/Length Dosing, 124, kg, 01/28/20 8:32:00 EDT, Weight Dosing General Treatment Plan Pharmacological management: Alternative medication plans were discussed with the patient/guardian. All relevant side effects and potenti (more content not included)... Normal [facility] Comment on above: Result Comment: Elec tronically Signed By: TERE TENORIO, Jocelyn\.br\Date and Time Signed: 01/28/20 09:14 EDT Vital Signs Date Time Vital Sign Value Performing Clinician Facility 06-11-2024 10:050 Body height 152.4 cm Chas Balderas MD Work Phone: [facility] 06-11-2024 10:13050 Body mass index (BMI) [Ratio] 53.32 kg/m2 Chas Balderas MD Work Phone: [facility] 06-11-2024 10:13050 Body temperature 97.11 [degF] Chas Balderas MD Work Phone: [facility] 06-11-2024 10:13-0500 Body weight 123.83 kg Chsa Balderas MD Work Phone: [facility] 06-11-2024 10:13-0500 Diastolic blood pressure 70 mm[Hg] Chas Balderas MD Work Phone: [facility] 06-11-2024 10:13-0500 Heart rate 81 /min Chas Balderas MD Work Phone: [facility] 06-11-2024 10:13-0500 Respiratory rate 20 /min Chas Balderas MD Work Phone: [facility] 06-11-2024 10:13-0500 SaO2% (BldA) [Mass fraction] 98 % Chas Balderas MD Work Phone: [facility] 06-11-2024 10:13-0500 Systolic blood pressure 140 mm[Hg] Chas Balderas MD Work Phone: [facility] 05-09-2024 09:42-0500 Body height 154.31 cm [facility] 05-09-2024 09:42-0500 Body mass index (BMI) [Ratio] 53.9 kg/m2 [facility] 05-09-2024 09:42-0500 Body temperature 98.7 [degF] [facility] 05-09-2024 09:42-0500 Body weight 128.48 kg [facility] 05-09-2024 09:42-0500 Diastolic blood pressure 83 mm[Hg] [facility] 05-09-2024 09:42-0500 Heart rate 82 /min [facility] 05-09-2024 09:42-0500 Respiratory rate 20 /min [facility] 05-09-2024 09:42-0500 SaO2% (BldA) [Mass fraction] 100 % [facility] 05-09-2024 09:42-0500 Systolic blood pressure 134 mm[Hg] [facility] 04-21-2024 09:11-0500 Body mass index (BMI) [Ratio] 56.44 kg/m2 Razia Muller [employer] Work Phone: [facility] 04-21-2024 09:11-0500 Body weight 131.09 kg Razia Muller [employer] Work Phone: [facility] 04-21-2024 09:11-0500 Diastolic blood pressure 82 mm[Hg] Razia Muller [employer] Work Phone: [facility] 04-21-2024 09:11-0500 Heart rate 96 /min Razia Muller [employer] Work Phone: [facility] 04-21-2024 09:11-0500 SaO2% (BldA) [Mass fraction] 98 % Razia Muller [employer] Work Phone: [facility] 04-21-2024 09:11-0500 Systolic blood pressure 140 mm[Hg] Razia Muller [employer] Work Phone: [facility] 02-25-2024 09:58-0500 Body height 152.4 cm Chas Balderas MD Work Phone: [facility] 02-25-2024 09:58-0500 Body mass index (BMI) [Ratio] 55.27 kg/m2 Chas Balderas MD Work Phone: [facility] 02-25-2024 09:58-0500 Body temperature 95.7 [degF] Chas Balderas MD Work Phone: [facility] 02-25-2024 09:58-0500 Body weight 128.37 kg Chas Balderas MD Work Phone: [facility] 02-25-2024 09:58-0500 Diastolic blood pressure 64 mm[Hg] Chas Balderas MD Work Phone: [facility] 02-25-2024 09:58-0500 Heart rate 82 /min Chas Balderas MD Work Phone: [facility] 02-25-2024 09:58-0500 Respiratory rate 22 /min Chas Balderas MD Work Phone: [facility] 02-25-2024 09:58-0500 SaO2% (BldA) [Mass fraction] 98 % Chas Balderas MD Work Phone: [facility] 02-25-2024 09:58-0500 Systolic blood pressure 112 mm[Hg] Chas Balderas MD Work Phone: [facility] 02-18-2024 09:33-0400 Body mass index (BMI) [Ratio] 55.66 kg/m2 Mk Vidhya DO Work Phone: [facility] 02-18-2024 09:33-0400 Body weight 129.28 kg Mk Vidhya DO Work Phone: [facility] 02-18-2024 09:33-0400 Diastolic blood pressure 82 mm[Hg] Mk Vidhya DO Work Phone: [facility] 02-18-2024 09:33-0400 Systolic blood pressure 126 mm[Hg] Mk Vidhya DO Work Phone: [facility] 02-05-2024 11:52-0400 Body mass index (BMI) [Ratio] 55.46 kg/m2 Mk Vidhya DO Work Phone: [facility] 02-05-2024 11:52-0400 Body weight 128.82 kg Mk Vidhya DO Work Phone: [facility] 02-05-2024 11:52-0400 Diastolic blood pressure 72 mm[Hg] Mk Vidhya DO Work Phone: [facility] 02-05-2024 11:52-0400 Systolic blood pressure 116 mm[Hg] Mk Vidhya DO Work Phone: [facility] 01-17-2024 09:31-0400 Body mass index (BMI) [Ratio] 59.61 kg/m2 Mk Vidhya DO Work Phone: [facility] 01-17-2024 09:31-0400 Body weight 138.44 kg Mk Vidhya DO Work Phone: [facility] 01-17-2024 09:31-0400 Diastolic blood pressure 88 mm[Hg] Mk Vidhya DO Work Phone: [facility] 01-17-2024 09:31-0400 Systolic blood pressure 128 mm[Hg] Mk Vidhya DO Work Phone: [facility] 01-03-2024 10:12-0400 Body mass index (BMI) [Ratio] 58.74 kg/m2 Mk Vidhya DO Work Phone: [facility] 01-03-2024 10:12-0400 Body weight 136.42 kg Mk Vidhya DO Work Phone: [facility] 01-03-2024 10:12-0400 Diastolic blood pressure 84 mm[Hg] Mk Vidhya DO Work Phone: [facility] 01-03-2024 10:12-0400 Systolic blood pressure 132 mm[Hg] Mk Vidhya DO Work Phone: [facility] 12-31-2023 11:13-0400 Body temperature 98.6 [degF] Claudia Cohen DO Work Phone: [facility] 12-31-2023 11:13-0400 Diastolic blood pressure 57 mm[Hg] Claudia Cohen DO Work Phone: [facility] 12-31-2023 11:13-0400 Heart rate 83 /min Claudia Cohen DO Work Phone: [facility] 12-31-2023 11:13-0400 Respiratory rate 18 /min Claudia Cohen DO Work Phone: [facility] 12-31-2023 11:13-0400 SaO2% (BldA) [Mass fraction] 97 % Claudia Cohen DO Work Phone: [facility] 12-31-2023 11:13-0400 Systolic blood pressure 128 mm[Hg] Claudia Cohen DO Work Phone: [facility] [employer] 12-17-2023 13:04-0400 Body height 152.4 cm [facility] 12-17-2023 13:04-0400 Body mass index (BMI) [Ratio] 59.5 kg/m2 [facility] 12-17-2023 13:04-0400 Body temperature 97.5 [degF] [facility] 12-17-2023 13:04-0400 Body weight 138.4 kg [facility] 12-17-2023 13:04-0400 Diastolic blood pressure 68 mm[Hg] [facility] 12-17-2023 13:04-0400 Heart rate 92 /min [facility] 12-17-2023 13:04-0400 Respiratory rate 18 /min [facility] 12-17-2023 13:04-0400 SaO2% (BldA) [Mass fraction] 95 % [facility] 12-17-2023 13:04-0400 Systolic blood pressure 125 mm[Hg] [facility] 12-17-2023 08:43-0400 Body mass index (BMI) [Ratio] 59.57 kg/m2 [employer] Work Phone: [facility] 12-17-2023 08:43-0400 Body weight 138.35 kg Mk Vidhya DO Work Phone: [facility] 12-17-2023 08:43-0400 Diastolic blood pressure 82 mm[Hg] Mk Vidhya DO Work Phone: [facility] 12-17-2023 08:43-0400 Systolic blood pressure 130 mm[Hg] Mk Vidhya DO Work Phone: [facility] 02-05-2023 09:45-0400 Body height 154.94 cm Jovita Murcia Other [employer] [facility] [employer] Other 02-05-2023 09:45-0400 Body mass index (BMI) [Ratio] 57.32 kg/m2 Jovita uMrcia Other [employer] Other 02-05-2023 09:45-0400 Body temperature 98 [degF] Jovita Murcia Other [employer] [facility] [employer] Other 02-05-2023 09:45-0400 Body weight 137.62 kg Jovita Murcia Other [employer] Other 02-05-2023 09:45-0400 Respiratory rate 18 /min Jovita Murcia Other [employer] Other 02-05-2023 09:45-0400 SaO2% (BldA) [Mass fraction] 97 % Jovita Murcia Other [employer] [facility] [employer] Other 12-22-2022 09:30-0400 Diastolic blood pressure 96 mm[Hg] MD Aline Villalobos Work Phone: [facility] 12-22-2022 09:30-0400 Heart rate 60 /min MD Aline Villalobos Work Phone: [facility] 12-22-2022 09:30-0400 Respiratory rate 16 /min MD Aline Villalobos Work Phone: [facility] 12-22-2022 09:30-0400 SaO2% (BldA) [Mass fraction] 99 % MD Aline Villalobos Work Phone: [facility] 12-22-2022 09:30-0400 Systolic blood pressure 154 mm[Hg] MD Aline Villalobos Work Phone: [facility] 12-22-2022 08:06-0400 Body height 152.4 cm MD Aline Villalobos Work Phone: [facility] 12-22-2022 08:06-0400 Body weight 137.89 kg MD Aline Villalobos Work Phone: [facility] 07-22-2022 11:35-0400 Respiratory rate 18 /min Inge Leung DO Work Phone: [facility] [employer] 07-22-2022 08:00-0400 Body temperature 99 [degF] Inge Leung DO Work Phone: [facility] [employer] 07-22-2022 08:00-0400 Diastolic blood pressure 63 mm[Hg] Inge Leung DO Work Phone: [facility] 07-22-2022 08:00-0400 Heart rate 78 /min Inge Leung DO Work Phone: [facility] 07-22-2022 08:00-0400 SaO2% (BldA) [Mass fraction] 99 % Inge Leung DO Work Phone: [employer] [facility] 07-22-2022 08:00-0400 Systolic blood pressure 137 mm[Hg] Inge Leung DO Work Phone: [facility] 07-18-2022 17:35-0400 Body height 154.94 cm Alesha Cortez Other [employer] Other 07-18-2022 17:35-0400 Body mass index (BMI) [Ratio] 62.16 kg/m2 Alesha Cortez Other [employer] Other 07-18-2022 17:35-0400 Body temperature 96 [degF] Alesha Cortez Other [employer] Other 07-18-2022 17:35-0400 Body weight 149.23 kg Alesha Cortez Other [employer] Other 07-18-2022 17:35-0400 Respiratory rate 18 /min Alesha Cortez Other [employer] Other 07-18-2022 17:35-0400 SaO2% (BldA) [Mass fraction] 97 % Alesha Cortez Other [employer] Other 07-15-2022 17:16-0400 Diastolic blood pressure 83 mm[Hg] Inge Leung DO Work Phone: [facility] [employer] 07-15-2022 17:16-0400 Heart rate 97 /min Inge Leung DO Work Phone: [facility] [employer] 07-15-2022 17:16-0400 Respiratory rate 16 /min Inge Leung DO Work Phone: [facility] [employer] 07-15-2022 17:16-0400 Systolic blood pressure 142 mm[Hg] Inge Leung DO Work Phone: [facility] [employer] 07-15-2022 15:44-0400 Body temperature 98.49 [degF] Inge Leung DO Work Phone: [facility] [employer] 03-21-2022 10:30-0500 Body height 154.94 cm [place] Other [employer] Other 03-08-2022 02:06-0500 Body weight 141.0696 kg LILIA SARA [facility] Comment on above: Performed By: #### UACSIND, UMICRO #### [facility] [address] [place] [address] Dr. Valeria Farris Encounters Encounter Date Encounter Type Care Provider Facility Start: 06-11-2024 End: 06-11-2024 Bamboo flowsheet Chas Balderas MD Work Phone: [facility] Start: 06-11-2024 End: 06-11-2024 Bamboo flowsheet Chas Balderas MD Work Phone: [facility] Start: 06-11-2024 End: 06-11-2024 Clinisync Result Encounter Razia Muller NP Work Phone: [facility] External Department Unsolicited Start: 06-11-2024 End: 06-11-2024 ambulatory CHAS BALDERAS Not Available Start: 06-11-2024 End: 06-11-2024 Office outpatient visit 25 minutes Chas Balderas MD Work Phone: [facility] Comment on above: Essential hypertensi on (CMS/HCC) (Primary Dx); Chronic rhinosinusitis; Bipolar 1 disorder, depressed, mild (CMS/HCC); Class 3 severe obesity due to excess calories with serious comorbidity and body mass index (BMI) of 50.0 to 59.9 in adult (CMS/HCC) Start: 05-09-2024 End: 05-09-2024 ambulatory [facility] Work Phone: Start: 05-09-2024 End: 05-09-2024 Patient encounter procedure [facility] Work Phone: Start: 04-21-2024 End: 04-21-2024 Bamboo flowsheet Razia Muller [employer] [facility] Start: 04-21-2024 End: 04-21-2024 Bamboo flowsheet Razia Muller [employer] [facility] Start: 04-21-2024 End: 04-21-2024 ambulatory RAZIA MULLER Not Available Start: 04-21-2024 End: 04-21-2024 Office outpatient visit 25 minutes Razia Muller [employer] [facility] Comment on above: IIH (idiopathic intr acranial hypertension) (Primary Dx); Encounter prior to initiation of medication; Morning headache; Facial numbness; Blurry vision; Carpal tunnel syndrome, right; Arachnoid cyst; Memory impairment; Anxiety Start: 03-18-2024 End: 03-18-2024 care visit Mk Kee DO Work Phone: [facility] Comment on above: UTI symptoms; 6 weeks follow-up; Vaginal discharge Start: 02-25-2024 End: 02-25-2024 Rayray Balderas MD Work Phone: [facility] Start: 02-25-2024 End: 02-25-2024 Rayray Balderas MD Work Phone: [facility] Start: 02-25-2024 End: 02-25-2024 Office outpatient visit 25 minutes Chas Balderas MD Work Phone: [facility] Comment on above: Essential hypertensi on (CMS/HCC) (Primary Dx); Bipolar 1 disorder, depressed, mild (CMS/HCC); TITA (generalized anxiety disorder) (CMS/HCC); Migraine without aura and with status migrainosus, not intractable (CMS/HCC); Class 3 severe obesity due to excess calories with serious comorbidity and body mass index (BMI) of 50.0 to 59.9 in adult (CMS/HCC) Start: 02-25-2024 End: 02-25-2024 ambulatory CHAS BALDERAS Not Available Start: 02-18-2024 End: 02-18-2024 ambulatory CHAS BALDERAS Not Available Start: 02-18-2024 End: 02-18-2024 Postop follow up visit related to original px Mk Vidhya DO Work Phone: [facility] Comment on above: Hypertension affecti ng in third trimester (Primary Dx) Start: 02-05-2024 End: 02-05-2024 Bamboo flowsheet Mk Vidhya DO Work Phone: [facility] Start: 02-05-2024 End: 02-05-2024 Bamboo flowsheet Mk Vidhya DO Work Phone: [facility] Start: 02-05-2024 End: 02-05-2024 Office outpatient visit 15 minutes Mk Vidhya DO Work Phone: [facility] Comment on above: care foll owing delivery; Status post emergency hysterectomy Start: 02-05-2024 End: 02-05-2024 ambulatory MK VIDHYA Not Available Start: 01-29-2024 End: 01-31-2024 Clinisync Result Encounter Generic External Data Provider [facility] External Department Unsolicited Start: 01-29-2024 End: 01-31-2024 Clinisync Result Encounter Generic External Data Provider [facility] External Department Unsolicited Start: 01-28-2024 End: 02-01-2024 Evaluation and management of inpatient MARINE S ANTONELLA [facility] Start: 01-17-2024 End: 01-17-2024 Bamboo flowsheet Mk Vidhya DO Work Phone: [facility] Start: 01-17-2024 End: 01-17-2024 Bamboo flowsheet Mk Vidhya DO Work Phone: [facility] Start: 01-17-2024 End: 01-17-2024 flow sheet Mk Vidhya DO Work Phone: [facility] Comment on above: Hypertension affecti ng in third trimester; Follow-up exam; Leg cramps in Start: 01-17-2024 End: 01-17-2024 ambulatory MK VIDHYA Not Available Start: 01-15-2024 End: 01-15-2024 ambulatory [facility] Start: 01-15-2024 End: 01-15-2024 flow sheet Mk Vidhya DO Work Phone: [facility] Comment on above: Third trimester preg kush; HSV infection Start: 01-15-2024 End: 01-15-2024 ambulatory MK VIDHYA Not Available Start: 01-03-2024 End: 01-03-2024 flow sheet Mk Vidhya DO Work Phone: [facility] Comment on above: Third trimester preg kush; Urinary tract infection without hematuria, site unspecified Start: 01-03-2024 End: 01-03-2024 ambulatory MK VIDHYA Not Available Start: 12-31-2023 End: 12-31-2023 Clinisync Result Encounter Generic External Data Provider [facility] External Department Unsolicited Start: 12-31-2023 End: 12-31-2023 Clinisync Result Encounter Generic External Data Provider [facility] External Department Unsolicited Start: 12-31-2023 End: 12-31-2023 ambulatory CLAUDIA COHEN [facility] Start: 12-31-2023 End: 12-31-2023 Subsequent hospital visit by physician Claudia Cohen DO Work Phone: [facility] Start: 12-29-2023 End: 12-29-2023 [facility] Start: 12-17-2023 End: 12-17-2023 Bamboo flowsheet Mk Vidhya DO Work Phone: [facility] Start: 12-17-2023 End: 12-17-2023 Bamboo flowsheet Mk Vidhya DO Work Phone: [facility] Start: 12-17-2023 End: 12-17-2023 ambulatory [facility] Work Phone: Start: 12-17-2023 End: 12-17-2023 Patient encounter procedure [facility] Work Phone: Start: 12-17-2023 End: 12-17-2023 flow sheet Mk Vidhya DO Work Phone: [facility] Comment on above: First trimester preg kush Start: 12-17-2023 End: 12-17-2023 ambulatory MK VIDHYA Not Available Start: 12-06-2023 End: 12-06-2023 ambulatory [facility] Start: 12-06-2023 End: 12-06-2023 Subsequent hospital visit by physician Chas Balderas MD Work Phone: [facility] Start: 11-29-2023 End: 11-29-2023 ambulatory MK VIDHYA Not Available Start: 11-12-2023 End: 11-12-2023 ambulatory SELENE MANCINI Not Available Start: 11-08-2023 End: 11-08-2023 ambulatory MATEO C [facility] Start: 11-08-2023 End: 11-08-2023 Subsequent hospital visit by physician Chas Balderas MD Work Phone: [facility] Start: 10-29-2023 End: 10-29-2023 ambulatory MK VIDHYA Not Available Start: 10-11-2023 End: 10-11-2023 ambulatory MK VIDHYA Not Available Start: 10-09-2023 End: 10-09-2023 ambulatory MATEO GODFREY [facility] Start: 09-11-2023 End: 09-11-2023 ambulatory MK VIDHYA Not Available Start: 09-10-2023 End: 09-11-2023 Emergency department patient visit MANUEL GODINEZ [facility] Start: 08-28-2023 End: 08-28-2023 Emergency department patient visit CHAS BALDERAS [facility] Start: 08-24-2023 End: 08-24-2023 ambulatory CHAS BALDERAS Not Available Start: 08-14-2023 End: 08-14-2023 ambulatory MK VIDHYA Not Available Start: 07-19-2023 End: 07-19-2023 ambulatory CHAS BALDERAS Not Available Start: 06-29-2023 End: 06-29-2023 [facility] Start: 06-14-2023 End: 06-14-2023 ambulatory RAZIA MULLER [facility] Start: 05-16-2023 End: 05-17-2023 Emergency department patient visit LINA June MIHIRGILDAIVELISSE [facility] Start: 05-03-2023 End: 05-03-2023 ambulatory KATERIN [facility] Start: 02-05-2023 End: 02-05-2023 ambulatory Jovita Murcia Other [employer] Other Start: 02-05-2023 Office outpatient vi sit 15 minutes Jovita Murcia [facility] Start: 12-22-2022 End: 12-22-2022 ambulatory Aline Villalobos Facility:[facility] Start: 12-22-2022 End: 12-22-2022 ambulatory MD Aline Villalobos Work Phone: [facility] Work Phone: Start: 12-22-2022 End: 12-22-2022 Patient encounter procedure MD Aline Villalobos Work Phone: [facility] [place] Work Phone: Start: 12-20-2022 End: 12-20-2022 ambulatory Aline Villalobos Facility:[facility] Start: 12-20-2022 End: 12-20-2022 ambulatory MD Aline Villalobos Work Phone: [facility] Work Phone: Start: 12-20-2022 End: 12-20-2022 Patient encounter procedure MD Aline Villalobos Work Phone: [facility] [place] Work Phone: Start: 09-04-2022 ambulatory RAYSA Nuñez y:[facility] Start: 07-20-2022 End: 07-22-2022 Evaluation and management of inpatient Inge Leung DO Work Phone: [facility] Post Comment on above: RLTCS w/ IUD 07/20/22 F Apg 8/9 Wt 6#12 (Primary Dx) Start: 07-20-2022 End: 07-20-[address] MK KEE Facility:[facility] Start: 07-19-2022 End: 07-19-[address] MK KEE Facility:[facility] Start: 07-18-2022 End: 07-18-2022 ambulatory Alesha Cortez Other [employer] Other Start: 07-18-2022 Office outpatient vi sit 25 minutes Alesha Cortez [facility] Start: 07-17-2022 End: 07-17-[address] MK KEE Facility:[facility] Start: 07-17-2022 Evaluation and management of inpatient DR MK KEE Facility:[facility] Start: 07-15-2022 End: 07-15-2022 Subsequent hospital visit by physician Inge Leung DO Work Phone: [facility] Start: 07-13-2022 End: 07-13-[address] MK KEE Facility:[facility] Start: 07-12-2022 End: 07-12-[address] LADONNA CARSON . Facility:[facility] Start: 07-10-2022 End: 07-10-[address] LADONNA CARSON . Facility:[facility] Start: 07-07-[address] MK KEE Facility :[facility] Start: 07-06-2022 End: 07-06-[address] MK KEE Facility:[facility] Start: 07-03-2022 End: 07-03-[address] LADONNA CARSON . Facility:[facility] Start: 06-30-2022 End: 06-30-[address] LADONNA CARSON . Facility:[facility] Start: 06-29-2022 End: 06-29-2022 Subsequent hospital visit by physician CHAU WI[facility] Start: 06-29-2022 End: 06-29-[address] LADONNA CARSON . Facility:[facility] Start: 06-26-2022 End: 06-26-[address] MK KEE Facility:[facility] Start: 06-22-2022 End: 06-22-[address] LADONNA CARSON . Facility:[facility] Start: 06-19-2022 End: 06-19-[address] MK KEE Facility:[facility] Start: 06-18-2022 End: 06-18-[address] MK KEE Facility:[facility] Start: 06-17-2022 End: 06-18-[address] MK KEE Facility:[facility] Start: 05-29-2022 End: 05-29-[address] LADONNA CARSON . Facility:[facility] Start: 05-25-2022 End: 05-25-2022 ambulatory DAV COHEN Facility:[facility] Start: 05-25-2022 End: 05-25-[address] LADONNA CARSON . Facility:[facility] Start: 05-23-2022 End: 05-23-[address] MK KEE Facility:[facility] Start: 05-04-2022 End: 05-04-[address] LADONNA CARSON . Facility:H1 Start: 04-11-2022 End: 04-12-[address] MK KEE Facility:H1 Start: 04-03-2022 End: 04-04-[address] MK KEE Facility:H1 Start: 03-28-2022 End: 03-29-[address] MK KEE Facility:[facility]1 Start: 03-21-2022 End: 03-21-2022 ambulatory Naga Wells Other [employer] Other Start: 03-21-2022 Office outpatient ne w 30 minutes Naga Wells [facility] Start: 03-19-2022 End: 03-19-2022 ambulatory LILIA RUIZ Facility:H1 Start: 03-15-2022 End: 03-16-[address] MK KEE Facility:H1 Start: 03-03-2022 End: 03-04-[address] MK KEE Facility:H1 Start: 02-27-2022 Blood pressure taking Jovita groves Other [employer] Other Start: 01-09-2022 End: 01-10-[address] MK KEE Facility:H1 Start: 12-30-2021 End: 12-31-[address] MK KEE Facility:H1 Start: 12-14-2021 End: 12-15-[address] MK KEE Facility:H1 Start: 12-07-[address] MK KEE Facility :H1 Start: 11-28-2021 End: 12-21-[address] MK KEE Facility:H1 Start: 10-05-2021 End: 10-06-[address] MK KEE Facility:H1 Start: 09-26-2021 ambulatory SHAIKH Vandana Nuñez y:H1 Start: 09-12-2021 End: 09-13-[address] GERARD GONZALEZ Facility:H1 Start: 09-12-2021 End: 09-13-[address] MK KEE Facility:H1 Start: 10-28-2020 History of abnormal cervical Papanicolaou smear Jovita Murcia Other [employer] Other Start: 01-30-2018 End: 10-11-2018 Patient encounter DEFAULT PHYSICIAN Facility:[facility] Procedures Date Procedure Procedure Detail Performing Clinician Start: 06-11-2024 MRI HEAD/BRAIN WO/W CONTR Razia Muller [employer] Work Phone: Start: 03-18-2024 Urnls dip stick/tabl et rgnt non-auto w/o micrscp Mk Vidhya DO Work Phone: Start: 01-29-[address] [facility] Generic External Data Provider Start: 01-17-2024 Urnls dip stick/tabl et rgnt non-auto w/o micrscp Mk Vidhya DO Work Phone: Start: 01-15-2024 Urnls dip stick/tabl et rgnt non-auto w/o micrscp Mk Vidhya DO Work Phone: Start: 01-03-2024 Urnls dip stick/tabl et rgnt non-auto w/o micrscp Mk Vidhya DO Work Phone: Start: 12-31-2023 [facility] URINALYSIS, WIT H MICROSCOPIC Generic External Data Provider Start: 12-31-2023 End: 12-31-2023 Protein total xcpt refractometry urine Cheryle Triana DO Work Phone: Start: 12-31-2023 End: 12-31-2023 Urnls dip stick/tablet reagent auto microscopy Cheryle Triana DO Work Phone: Start: 12-17-2023 Urnls dip stick/tabl et rgnt non-auto w/o micrscp Mk Vidhya DO Work Phone: Start: 12-06-2023 Assay of free thyroxine Mateo Godfrey MD Work Phone: Start: 11-08-2023 Assay of free thyroxine Mateo Godfrey MD Work Phone: Start: 09-11-2023 Microscopic observat ion [Identifier] in Cervix by Cyto stain Mk Vidhya DO Work Phone: Start: 12-22-2022 Investigation of transfusion reaction MD Aline Villalobos Work Phone: Start: 07-22-2022 Glucose blood reagent strip Hitesh A Lubbock DO Work Phone: Start: 07-21-2022 Glucose blood reagent strip Hitesh A Lubbock DO Work Phone: Start: 07-21-2022 Glucose blood reagent strip Hitesh A Lubbock DO Work Phone: Start: 07-21-2022 Glucose blood [...] 07-20-2022 End: 07-20-2022 delivery only Hitesh A Jewel DO Work Phone: Start: 07-20-2022 Antibody screen Jamil Leung DO Work Phone: Start: 07-20-2022 End: 07-20-2022 Blood typing serologic abo Apoorva Margob DO Work Phone: Start: 07-20-2022 End: 07-20-2022 Comprehensive metabolic panel Apoorva Margob DO Work Phone: Start: 07-20-2022 T. PALLIDUM AB Apoorva Peterson rgob DO Work Phone: Start: 07-20-2022 End: 05-22-2023 H/O: section History of CS x2 Inge [...] thyroxine Mateo Godfrey MD Work Phone: Start: 12-28-2021 Diabetes mellitus screening Jovita Murcia Other End: 04-13-2021 screening Jovita Murcia Other End: 07-27-2021 screening Jovita Murcia Other Counseling Jovita Murcia Other Depression screening Jovita Murcia Other visit Jovita nicolas Other Plan of Treatment Date Care Activity Detail Author Start: 12-21-2029 DTaP/Tdap/Td vaccine (7 - Td or Tdap) DTaP/Tdap/Td vaccine (7 - Td or Tdap) [facility] Start: 09-10-2028 Screening for malign ant neoplasm of cervix [facility] Start: 07-09-2024 End: 07-09-2024 Patient encounter procedure 07/09/2024 9:45 AM EDT Office Visit [facility] [address] [place] [phone] Chas Balderas MD [address] [place] [phone] [facility] Start: 05-28-2024 End: 05-28-2024 Patient encounter procedure 05/28/2024 9:00 AM EST Office Visit [facility] [address] [place] [phone] Chas Balderas MD [address] [place] [phone] [facility] Start: 05-19-2024 End: 05-19-2024 Patient encounter procedure 05/19/2024 9:00 AM EST Office Visit [facility] [address] [place] [address] Razia Muller, [employer] [address] [place] [address] [facility] Start: 04-23-2024 End: 04-23-2025 MR Brain WO and W contrast IV MR brain w and wo contrast routine Imaging Routine Facial numbness Blurry vision Expected: 04/23/2024 (Approximate), Expires: 04/23/2025 [facility] Comment on above: Expected: 04/23/2024 (Approximate), Expires: 04/23/2025 Start: 04-21-2024 End: 04-21-2025 Comprehensive metabolic 2000 panel - Serum or Plasma Comprehensive metabolic panel Lab Routine Encounter prior to initiation of medication Expected: 04/21/2024 (Approximate), Expires: 04/21/2025 [facility] Work Phone: Comment on above: Expected: 04/21/2024 (Approximate), Expires: 04/21/2025 Start: 03-18-2024 End: 03-18-2024 ambulatory 03/18/2024 9:20 AM EST Visit [facility] [address] [phone] Mk Kee, [address] [place], [place] [phone] [facility] Start: 02-25-2024 End: 02-25-2024 Patient encounter procedure [facility] Comment on above: Arrived Start: 02-12-2024 End: 02-12-2024 Clinical Support 02/12/2024 9:30 AM EDT Clinical Support [facility] [address] [place] [phone] [facility] Start: 02-05-2024 End: 02-05-2024 Patient encounter procedure [facility] Comment on above: Arrived Start: 01-31-2024 End: 01-31-2024 Patient encounter procedure 01/31/2024 7:45 AM EDT Routine [facility] [address] [place] [phone] [facility] Start: 01-30-2024 End: 01-30-2024 Patient encounter procedure 01/30/2024 8:50 AM EDT Routine [facility] [address] [place] [address] Selene Mancini PA [address] [place] [address] [facility] Start: 01-24-2024 End: 01-24-2024 Patient encounter procedure 01/24/2024 7:45 AM EDT Routine [facility] [address] [place] [phone] [facility] Start: 01-17-2024 End: 01-17-2024 Patient encounter procedure [facility] Comment on above: Arrived Start: 01-10-2024 End: 01-10-2024 Patient encounter procedure 01/10/2024 7:45 AM EDT Routine [facility] [address] [place] [phone] [facility] Start: 01-03-2024 End: 01-03-2024 Patient encounter procedure 01/03/2024 7:45 AM EDT Routine [facility] [address] [facility] [address] [place] [address] Return for 4 weeks growth/bpp/dop, then weekly bpp/dop. [facility] Comment on above: Return for 4 weeks g rowth/bpp/dop, then weekly bpp/dop. Start: 01-01-2024 Respiratory Syncytia l Virus (RSV) or age 60 yrs+ (1 - Risk 1-dose series) Respiratory Syncytial Virus (RSV) or age 60 yrs+ (1 - Risk 1-dose series) [facility] Start: 01-01-2024 End: 01-01-2024 Patient encounter procedure 01/01/2024 9:50 AM EDT Routine [facility] [address] [place] [phone] Mk Kee, DO [address] [place] [address] [facility] Start: 12-23-2023 COVID-19 Vaccine ( season) COVID-19 Vaccine ( season) [facility] Start: 12-23-2023 Influenza vaccination Influenza Vacc ine (#1) [facility] Start: 12-17-2023 End: 12-17-2023 Patient encounter procedure 12/17/2023 8:30 AM EDT Routine [facility] [address] [place] [phone] Mk Kee, DO [address] [place] [address] Arrived [facility] Comment on above: Arrived Start: 12-06-2023 End: 12-06-2023 Patient encounter procedure 12/06/2023 7:45 AM EDT Routine [facility] [address] [facility] [address] [place] [phone] Return in about 4 weeks (around 12/06/2023) for Growth and BPP, Umbilical dopplers, repeat anatomy, echo NOT AFTER 2:30. [facility] Comment on above: Return in about 4 we eks (around 12/06/2023) for Growth and BPP, Umbilical dopplers, repeat anatomy, echo NOT AFTER 2:30. Start: 11-27-2023 Tdap Vaccine during Tdap Vaccine during [facility] Start: 11-22-2023 Influenza vaccination Flu vaccine (# 1) [facility] Start: 05-18-2023 Hemoglobin A1c measurement A1C test (Diabetic or Prediabetic) [facility] Start: 12-22-2022 COVID-19 Vaccine ( season) COVID-19 Vaccine ( season) [facility] Start: 12-22-2022 Cerebrospinal fluid culture [facility] Start: 12-22-2022 End: 12-22-2022 [facility] Start: 11-21-2022 Influenza vaccination Flu vacc ine (Season Ended) [facility] Start: 07-20-2022 End: 07-20-2022 Patient encounter procedure 07/20/2022 Routine Perinatology [facility] Start: 07-13-2022 End: 07-13-2022 Patient encounter procedure 07/13/2022 Routine Perinatology [facility] Start: 07-06-2022 End: 07-06-2022 Patient encounter procedure 07/06/2022 Routine Perinatology [facility] Start: 02-05-2022 Screening for malign ant neoplasm of cervix [facility] Start: 11-21-2021 Influenza vaccination Flu vaccine (# 1) [facility] Start: 01-21-2021 COVID-19 Vaccine (2 - Booster for Hipolito series) COVID-19 Vaccine (2 - Booster for Hipolito series) [facility] Start: 02-05-2013 Screening for malign ant neoplasm of cervix Pap smear [facility] Start: 02-05-2010 Hepatitis C screening Hepatitis C sc reen [facility] Start: 02-05-2007 HIV screening HIV screen [employer] [facility] [employer] Start: 02-05-2005 Varicella vaccine (1 of 2 - 13+ 2-dose series) Varicella vaccine (1 of 2 - 13+ 2-dose series) [facility] Start: 2004 Depression Screen Depression Screen [facility] Start: 02-05-2002 Lipid panel Lipids [facility] [employer] Start: 02-05-1998 Pneumococcal 0-64 ye ars Vaccine (1 - PCV) Pneumococcal 0-64 years Vaccine (1 - PCV) [facility] [employer] Start: 02-05-1998 Pneumococcal 0-64 ye ars Vaccine (1 of 2 - PCV) Pneumococcal 0-64 years Vaccine (1 of 2 - PCV) [facility] [employer] Start: 02-05-1993 Varicella vaccine (1 of 2 - 2-dose childhood series) Varicella vaccine (1 of 2 - 2-dose childhood series) [facility] [employer] Bacteria identified in Unspecified specimen by Aerobe culture [facility] Bacteria identified in Unspecified specimen by Anaerobe culture [facility] C.trachomatis N.gonorrhoeae DNA C.trachomatis N.gonorrhoeae DNA Microbiology [employer] Print 12/31/2023 1:08 PM EDT [facility] End: 12-31-2023 Comprehensive metabolic 2000 panel - Serum or Plasma [facility] Work Phone: Comment on above: One Time for 1 Occur rences starting 12/31/2023 until 12/31/2023 End: 07-15-2022 COVID-19, Rapid COVID-19, Rapid Microbiology STAT One Time for 1 Occurrences starting 07/15/2022 until 07/15/2022 [facility] Work Phone: Comment on above: One Time for 1 Occur rences starting 07/15/2022 until 07/15/2022 CT CHEST PULMONARY EMBOLISM W CONTRAST CT CHEST PULMONARY EMBOLISM W CONTRAST Imaging STAT 07/15/2022 5:48 PM EDT [employer] Phone: Culture, Strep B Scr een, Vaginal/Rectal Culture, Strep B Screen, Vaginal/Rectal Microbiology [employer] 07/20/2022 6:56 PM EDT [facility] Work Phone: EKG 12 Lead EKG 12 Lead ECG Routine 07/15/2022 4:23 AM EDT [facility] Work Phone: Glucose [Mass/volume ] in Serum or Plasma POCT glucose Point of Care Testing Routine 4X Daily (AC & HS) until discontinued starting 07/20/2022 [facility] Work Phone: Comment on above: 4X Daily (AC & HS) u ntil discontinued starting 07/20/2022 End: 07-15-2022 Hepatitis C Antibody [employer] Phone: Comment on above: One Time for 1 Occur rences starting 07/15/2022 until 07/15/2022 Meningitis+Encephali tis pathogens DNA and RNA panel - Cerebral spinal fluid by SARANYA with non-probe detection [facility] Microscopic observat ion [Identifier] in Unspecified specimen by Gram stain [facility] Nonrebreather mask oxygen Nonrebreather mask oxygen Respiratory Care Routine As directed - RT (PRN) until discontinued starting 07/15/2022 [facility] Work Phone: Comment on above: As directed - RT (AL N) until discontinued starting 07/15/2022 Nonrebreather mask oxygen Nonrebreather mask oxygen Respiratory Care Routine As Needed until discontinued starting 12/31/2023 [facility] Comment on above: As Needed until disc ontinued starting 12/31/2023 Oxygen therapy [[facility] Data Set] Initiate Oxygen Therapy Protocol Respiratory Care Routine Daily until discontinued starting 07/20/2022 [facility] Work Phone: Comment on above: Daily until disconti nued starting 07/20/2022 Patient Education [facility] Lumb ar Puncture Discharge Instructions [facility] Work Phone: PROFILE I PROF ILE I Lab [employer] 07/15/2022 4:12 PM EDT [facility] Work Phone: End: 07-15-2022 RAPID INFLUENZA A/B ANTIGENS RAPID INFLUENZA A/B ANTIGENS Microbiology STAT One Time for 1 Occurrences starting 07/15/2022 until 07/15/2022 [employer] Phone: Comment on above: One Time for 1 Occur rences starting 07/15/2022 until 07/15/2022 End: 07-20-2022 Specimen hold [employer] Phone: Comment on above: Once for 1 Occurrenc es starting 07/20/2022 until 07/20/2022 End: 07-20-2022 Specimen to Pathology Specimen to Pathology Lab Routine One Time for 1 Occurrences starting 07/20/2022 until 07/20/2022 [employer] Phone: Comment on above: One Time for 1 Occur rences starting 07/20/2022 until 07/20/2022 Spirometry panel Incentive linda metry Respiratory Care Routine Every 2hr while awake until discontinued starting 07/20/2022 [employer] Phone: Comment on above: Every 2hr while awak e until discontinued starting 07/20/2022 End: 07-15-2022 Troponin I.cardiac [Mass/volume] in Serum or Plasma Troponin Lab STAT One Time for 1 Occurrences starting 07/15/2022 until 07/15/2022 [employer] Phone: Comment on above: One Time for 1 Occur rences starting 07/15/2022 until 07/15/2022 End: 12-31-2023 VAGINITIS DNA PROBE [facility] Comment on above: One Time for 1 Occur rences starting 12/31/2023 until 12/31/2023 Immunizations Immunization Date Immunization Notes Care Provider Radha bowen 04-21-2014 influenza virus vaccine, unspecified formulation Mk Kee DO Work Phone: [facility] NEGATED: Highlighted row has not occurred!07-22-2022 tetanus toxoid, reduced diphtheria toxoid, and acellular pertussis vaccine, adsorbed Inge Leung DO Work Phone: [facility] Payers Date Payer Category Payer Managed Care HMO (unspecified) [employer] [id number] 5 2024 Private Health Insurance [id number] 2022 [facility] er [id number] .[id number] 5 2022 Unknown 2022 Unknown [id number] 2022 Medicaid [id number] 2022 Medicaid [id number]. 1.13.693 .2.7.3.618919.315 1992 Unknown [id number] 2.16.840.1.400150.3.579 .2.647 1992 Unknown [id number] 2.16.840.1.264735.3.579 .2.593 1992 Unknown [id number] 2.16.840.1.172249.3.579 .2.593 1992 Unknown [id number] 2.16.840.1.680914.3.579 .2.593 1992 Unknown [id number] 2.16.840.1.509529.3.579 .2.593 1992 Unknown [id number] 2.16.840.1.365324.3.579 .2.593 1992 Unknown [id number] 2.16.840.1.462100.3.579 .2.593 1992 Unknown [id number] 2.16.840.1.635105.3.579 .2.593 1992 Unknown [id number] 2.16.840.1.353208.3.579 .2.593 1992 Unknown [id number] 2.16.840.1.736775.3.579 .2.593 1992 Unknown [id number] 2.16.840.1.248827.3.579 .2.593 1992 Unknown [id number] 2.16.840.1.544771.3.579 .2.593 1992 Unknown [id number] 2.16.840.1.959291.3.579 .2.593 1992 Unknown [id number] 2.16.840.1.989187.3.579 .2.593 1992 Unknown [id number] 2.16.840.1.188699.3.579 .2.593 1992 Unknown [id number] 2.16.840.1.758668.3.579 .2.593 1992 Unknown [id number] 2.16.840.1.119752.3.579 .2.593 1992 Unknown [id number] 2.16.840.1.371239.3.579 .2.593 1992 Unknown [id number] 2.16.840.1.520611.3.579 .2.593 1992 Unknown [id number] 2.16.840.1.644446.3.579 .2.593 1992 Unknown [id number] 2.16.840.1.625703.3.579 .2.593 1992 Unknown [id number] 2.16.840.1.730477.3.579 .2.593 1992 Unknown [id number] 2.16.840.1.736363.3.579 .2.593 1992 Unknown [id number] 2.16.840.1.347748.3.579 .2.593 1992 Unknown [id number] 2.16.840.1.618658.3.579 .2.593 1992 Unknown [id number] 2.16.840.1.090304.3.579 .2.593 1992 Unknown [id number] 2.16.840.1.001704.3.579 .2.593 1992 Unknown [id number] 2.16.840.1.161319.3.579 .2.593 1992 Unknown [id number] 2.16.840.1.144690.3.579 .2.593 1992 Unknown [id number] 2.16.840.1.249820.3.579 .2.593 1992 Unknown [id number] 2.16.840.1.555452.3.579 .2.593 1992 Unknown [id number] 2.16.840.1.288757.3.579 .2.593 1992 Unknown [id number] 2.16.840.1.824717.3.579 .2.593 1992 Unknown [id number] 2.16.840.1.993819.3.579 .2.593 1992 Unknown [id number] 2.16.840.1.212846.3.579 .2.593 1992 Unknown [id number] 2.16.840.1.878306.3.579 .2.593 1992 Unknown [id number] 2.16.840.1.397275.3.579 .2.593 1992 Unknown [id number] 2.16.840.1.558724.3.579 .2.593 1992 Unknown [id number] 2.16.840.1.749881.3.579 .2.593 1992 Unknown [id number] 2.16.840.1.991925.3.579 .2.593 1992 Unknown [id number] 2.16.840.1.907319.3.579 .2.593 1992 Unknown [id number] 2.16.840.1.409536.3.579 .2.1286 1992 Unknown [id number] 2.16.840.1.985823.3.579 .2.1286 1992 Unknown [id number] 2.16.840.1.396743.3.579 .2.1286 1992 Unknown [id number] 2.16.840.1.374161.3.579 .2.1286 1992 Unknown [id number] 2.16.840.1.781600.3.579 .2.1286 1992 Unknown [id number] 2.16.840.1.778674.3.579 .2.1286 1992 Unknown [id number] 2.16.840.1.346614.3.579 .2.1286 1992 Unknown [id number] 2.16.840.1.683233.3.579 .2.1286 1992 Unknown [id number] 2.16.840.1.467658.3.579 .2.1286 1992 Unknown [id number] 2.16.840.1.778747.3.579 .2.1286 1992 Unknown [id number] 2.16.840.1.963703.3.579 .2.175 1992 Unknown [id number] 2.16.840.1.315233.3.579 .2.175 1992 Unknown [id number] 2.16.840.1.603452.3.579 .2.175 1992 Unknown [id number] 2.16.840.1.581961.3.579 .2.175 1992 Unknown [id number] 2.16.840.1.065815.3.579 .2.175 1992 Unknown [id number] 2..840.1.490317.3.579 .2.1259 1992 Unknown [id number] 2..840.1.794281.3.579 .2.1259 1992 Unknown [id number] 2.16.840.1.386743.3.579 .2.1259 1992 Unknown [id number] 2.16.840.1.439492.3.579 .2.1259 1992 Unknown [id number] 2.16.840.1.520089.3.579 .2.1259 1992 Unknown [id number] 2.16.840.1.850812.3.579 .2.1259 1992 Unknown [id number] 2.16.840.1.705535.3.579 .2.1259 1992 Unknown [id number] 2.16.840.1.741933.3.579 .2.1259 1992 Unknown [id number] 2.16.840.1.831907.3.579 .2.1259 1992 Unknown [id number] 2.16.840.1.897596.3.579 .2.1259 1992 Unknown [id number] 2.16.840.1.242988.3.579 .2.1259 1992 Unknown [id number] 2.16.840.1.835496.3.579 .2.9 1992 Unknown [id number] 2.16.840.1.242415.3.579 .2.1259 1992 Unknown [id number] 2.16.840.1.930778.3.579 .2.9 1992 Unknown [id number] 2.16.840.1.489774.3.579 .2.1259 1992 Unknown [id number] 2.16.840.1.451345.3.579 .2.9 1992 Unknown [id number] 2.16.840.1.812009.3.579 .2.1259 1959 Medicaid [id number] 1.2.840.623855.1.13.239 .2.7.3.776166.315 1959 Private Health Insurance [id number] 1.2.840.374057.1.13.239 .2.7.3.300518.315 1959 Self-pay 1959 Unknown [id number] 1959 Worker's Compensation [id number] 06.08.840.1.094340.19 Medicaid [employer] [id number] Private Health Insurance [id number] 16.840.1.570371.19 Private Health Insurance [facility] [id number] Private Health Insurance [employer] [id number] Unknown [id number] 2.16.840.1.828246.19 Unknown [id number] 2.16.840.1.464139.3.579 .2.593 Unknown [id number] 2.16.840.1.140917.3.579 .2.531 Unknown [id number] 2.16.840.1.827107.3.579 .2.531 Social History Date Type Detail Facility Unknown if ever smoked [employer] Other Start: 08-07-2023 End: 06-11-2024 Sex Assigned At [facility] Start: 06-22-2022 End: 02-05-2024 Tobacco smoking status CAIS Ex-smoker [facility] Start: 09-21-2004 End: 12-22-2022 History of tobacco use Current smoker [employer] Phone: Start: 09-21-2004 End: 07-22-2020 History of tobacco use Cigarette Smoker [employer] Phone: Start: 06-22-2022 End: 02-05-2024 Tobacco use and exposure Smokeless tobacco non-user [employer] Phone: Start: 06-29-2022 End: 06-11-2024 Alcohol intake Ex-drinker (finding) [employer] Phone: Start: 06-22-2022 Tobacco Comment Quit in 201806/22/2022 [employer] Phone: Start: 11-20-2021 [employer] Phone: Start: 1990 Sex Assigned At Female [facility] Start: 07-10-2022 End: 07-20-2022 Exposure to SARS-CoV-2 (event) Not sure [employer] Phone: Start: 05-24-2023 End: 08-07-2023 Cigarettes smoked current (pack per day) - Reported 1 [facility] Do you belong to any clubs or organizations such as holiness groups, unions, fraternal or athletic groups, or school groups? No [facility] Are you now , , , , never or living with a partner? [facility] How often to you hav e a drink containing alcohol? Never [facility] How many standard dr inks containing alcohol do you have on a typical day? Patient declined [facility] How hard is it for y ou to pay for the very basics like food, housing, medical care, and heating Somewhat hard [facility] Do you feel stress - tense, restless, nervous, or anxious, or unable to sleep at night because your mind is troubled all the time - these days [OSQ] To some extent [facility] In the past 12 month s, was there a time when you were not able to pay the mortgage or rent on time? Yes [facility] Start: 05-24-2023 Tobacco Comment Last smoked : 1-3 months [facility] Start: 10-26-2022 Alcohol Comment 1-2 drinks 2-4x a month in the past year, Caffeine intake: 1-2 cups per day tea [facility] Start: 1990 Sex assigned at Not on file [facility] Start: 06-19-2022 Gender identity Identifies as female gender (finding) [facility] Start: 05-09-2024 Sex Female (finding) [facility] Medical Equipment Procedure Code Equipment Code Equipment Origin al Text Equipment Identifier Dates [id number] Start: 04-03-2022 End: 06-11-2024 ONETOUCH ULTRA strip [id number] Star t: 06-11-2022 DROPLET PEN NEED LES 29G X 12MM MISC [id number] Start: 06-30-2022 USE 1 DAILY TO C HECK BLOOD SUGAR FOUR TIMES DAILY [id number] Start: 12-07-2023 End: 06-11-2024 Goals Date Patient Goal Desired Activity /State Personal health goal Clinical Notes 01-28-2020 to 06-11-2024 Chas Balderas MD - 06/11/2024 10:39 AM Johnathan Balderas MD - 06/11/2024 10:39 AM Johnathan Balderas MD - 06/11/2024 10:38 AM Johnathan Balderas MD - 06/11/2024 10:38 AM ESTPatient Instructions Note Date & Type Note Facility 06-11-2024 History of Present illness Narrative Associated Problem(s): Essential hypertension (CMS/HCC) BP controlled and monitor PRN. Associated Problem(s): Class 3 severe obesity due to excess calories with serious comorbidity and body mass index (BMI) of 50.0 to 59.9 in adult ([facility]) Patient overweight and difficult time losing weight. Discussed proper diet and regular aerobic exercise. Recommend Weight Watchers and need to limit calories and smaller portions. Need to increase activity and regular aerobic exercise several days a week for 30 minutes at a time. Interested in adipex and warned of potential cardiac side effects. Script written for first month and will need to recheck weight in 1 month. OARRS reviewed. Continue medications as prescribed. Associated Problem(s): Chronic rhinosinusitis Resume flonase Associated Problem(s): Bipolar 1 disorder, depressed, mild ([facility]) Symptoms stable and follow with psychiatry. Images from the original note were not included. Subjective Patient ID: Yani Stevens is a 34 y.o. female who presents for Follow-up (3 m) and Earache (Ear pain). Follow up HTN, weight, bipolar, and anxiety. Checking BP PRN and typically controlled. BP normal today. Taking medication daily and tolerating without side effects. Following with psychiatry for bipolar and recently tried ADD medication. C/o problems with ears. Ears plugged and c/o pressure. Severe congestion and occasional rhinorrhea. [place] and sinus pressure in forehead and cheeks along with postnasal drip. On zyrtec but not using flonase. Concerned of weight. Down 10 pounds and trying to lose more. Active and goes to gym several days a week. Tries to watch diet and eat healthy. Increased fruits and vegetables. Smaller portions and limits snacking. Tries to limit total daily calories. Review of Systems Respiratory: Negative for cough, shortness of breath and wheezing. Cardiovascular: Negative for chest pain and palpitations. Gastrointestinal: Negative for abdominal pain, diarrhea, nausea and vomiting. Genitourinary: Negative for dysuria. Objective Physical Exam Constitutional: General: She is not in acute distress. Appearance: Normal appearance. HENT: Head: Normocephalic. Right Ear: Tympanic membrane normal. Left Ear: Tympanic membrane normal. Eyes: Extraocular Movements: Extraocular movements intact. Pupils: Pupils are equal, round, and reactive to light. Cardiovascular: Rate and Rhythm: Normal rate and regular rhythm. Heart sounds: No murmur heard. No friction rub. No gallop. Pulmonary: Effort: Pulmonary effort is normal. Breath sounds: Normal breath sounds. No wheezing, rhonchi or rales. Abdominal: General: Bowel sounds are normal. There is no distension. Palpations: Abdomen is soft. Tenderness: There is no abdominal tenderness. There is no guarding or rebound. Musculoskeletal: Cervical back: Neck supple. Right lower leg: No edema. Left lower leg: No edema. Neurological: Mental Status: She is alert. Assessment/Plan Problem List Items Addressed This Visit Bipolar 1 disorder, depressed, mild (CMS/HCC) Symptoms stable and follow with psychiatry. Chronic rhinosinusitis Resume flonase Relevant Medications fluticasone (Flonase) 50 MCG/ACT nasal spray Essential hypertension (CMS/HCC) - Primary BP controlled and monitor PRN. Class 3 severe obesity due to excess calories with serious comorbidity and body mass index (BMI) of 50.0 to 59.9 in adult (CMS/HCC) Patient overweight and difficult time losing weight. Discussed proper diet and regular aerobic exercise. Recommend Weight Watchers and need to limit calories and smaller portions. Need to increase activity and regular aerobic exercise several days a week for 30 minutes at a time. Interested in adipex and warned of potential cardiac side effects. Script written for first month and will need to recheck weight in 1 month. OARRS reviewed. Continue medications as prescribed. Relevant Medications phentermine (Adipex-P) 37.5 MG tablet documented in this encounter [facility] 04-21-2024 History of Present illness Narrative Images from the original note were not included. Chief Complaint Patient presents with Visual Changes Subjective Yani Stevens is a 34 y.o. female. History of Present Illness The patient presents today for follow up. She was most recently evaluated in our office on 06/25/[address] Perdomo. At that time, she had stopped her acetazolamide and Qulipta due to . She delivered her baby in January 2024 and is no longer . She admits her headaches and vision have worsened since she delivered her baby. The patient has approximately 2-3 headaches per week. These are primarily located in the occipital region (medial aspect). She describes them as throbbing and pulsating. She states it feels like she, got hit with a baseball bat in the back of the head, when she has a headache. They are accompanied by nausea and increased sensitivity to lights and sounds. They are not accompanied by vomiting. They last a few hours to 1 day. She states she will take Excedrin migraine as needed for her headaches, and this, takes the edge off. The patient believes her vision has worsened bilaterally since she delivered her baby. She states her vision appears more blurry than it used to. She reports more difficulty reading due to this and states she does not drive at night. She denies eye pain, double vision, or vision loss. She admits to an intermittent whooshing sound in the right ear. The patient also reports transient facial numbness in varying locations. She states this can occur with or without a headache. She states she feels like her scalp is, crawling, at times as well. No further new concerns reported. Review of Systems Constitutional: Positive for fatigue. Negative for appetite change, chills, fever and unexpected weight change. HENT: Positive for tinnitus. Negative for trouble swallowing and voice change. Eyes: Negative for pain. Positive for blurry vision. Negative for double vision or loss of vision Respiratory: Negative for cough, shortness of breath and wheezing. Cardiovascular: Negative for chest pain and palpitations. Gastrointestinal: Negative for abdominal pain, blood in stool and vomiting. Musculoskeletal: Negative for arthralgias, gait problem and myalgias. Neurological: Positive for numbness and headaches (accompanied by nausea, photophobia, and phonophobia). Negative for dizziness, tremors, seizures, syncope, facial asymmetry, speech difficulty, weakness and light-headedness. Positive for memory difficulty (chronic) Psychiatric/Behavioral: Negative for hallucinations and suicidal ideas. The patient is nervous/anxious. Home Medication List acetaminophen 500 MG tablet; Commonly known as: Tylenol albuterol HFA 90 mcg/act inhaler Alcohol Prep 70 % pads BD Pen Needle Jodi 2nd Gen 32G X 4 MM misc; Generic drug: insulin pen needle cetirizine 10 MG tablet; Commonly known as: ZyrTEC; Take 1 tablet (10 mg) by mouth Daily citalopram 40 MG tablet; Commonly known as: CeleXA; Take 1 tablet (40 mg) by mouth Daily D-Care Glucometer w/Device kit; 1 kit Daily Use four times daily to check FSBS. In the morning prior to breakfast & 1 hour after each meal for a total of 4times daily. fluticasone 50 MCG/ACT nasal spray; Commonly known as: Flonase levothyroxine 75 MCG tablet; Commonly known as: Synthroid, Levoxyl; Take 1 tablet (75 mcg) by mouth in the morning. metFORMIN 500 MG tablet; Commonly known as: Glucophage; TAKE ONE TABLET BY MOUTH EVERY MORNING AND TAKE ONE TABLET BY MOUTH EVERY EVENING NIFEdipine XL 60 MG 24 hr tablet; Commonly known as: Procardia XL ondansetron ODT 4 MG disintegrating tablet; Commonly known as: Zofran-ODT; TAKE 1 TABLET (4 MG) BY MOUTH EVERY 6 (SIX) HOURS IF NEEDED FOR NAUSEA OR VOMITING FOR UP TO 15 DAYS OneTouch Delica Plus [id number] misc; USE 1 DAILY TO CHECK BLOOD SUGAR FOUR TIMES DAILY OneTouch Verio test strip; Generic drug: glucose blood valACYclovir 500 MG tablet; Commonly known as: Valtrex; Take 1 tablet (500 mg) by mouth Daily Past Medical History: Diagnosis Date Abnormal ECG 2021 Abnormal Pap smear of cervix 2019 Ankle sprain 2009 Anxiety Asthma ([facility]) Bacterial vaginosis Bipolar depression (CMS/HCC) Cholecystitis Chondromalacia CTS (carpal tunnel syndrome) 2020 Essential hypertension (CMS/HCC) Facial numbness Fatty liver Genital herpes GERD (gastroesophageal reflux disease) Gestational diabetes mellitus Hypothyroidism (acquired) (CMS/HCC) IIH (idiopathic intracranial hypertension) Knee sprain 2016 Low back pain Low back strain 2014 Migraines (CMS/HCC) Obesity Ovarian cyst 2020 Overdose 05/2018 aspiration ; pneumonia Post-traumatic stress disorder (CMS/HCC) Rosacea Rotator cuff syndrome 2021 Tear of meniscus of knee 2015 Thyroid disorder (CMS/HCC) Thyroid nodule (CMS/HCC) Urinary tract infection 2020 Past Surgical History: Procedure Laterality Date ANAL SPHINCTEROTOMY SECTION, LOW TRANSVERSE 07/29/2021 x2 CHOLECYSTECTOMY 2013 COLONOSCOPY 2016 EXCISIONAL HEMORRHOIDECTOMY HEMORRHOID SURGERY KNEE SURGERY 12/2015 scope KNEE SURGERY 12/04/2017 left knee scope - Dr. Guzman LIPOMA RESECTION 2013 LIPOMA RESECTION OTHER SURGICAL HISTORY 02/2018 excision of blue nevus scalp THYROIDECTOMY, PARTIAL Left 05/21/2020 WISDOM TOOTH EXTRACTION 2007 Family History Problem Relation Name Age of Onset Diabetes Mother Lucifer Hypertension Mother Lucifer RENEE disease Mother Lucifer Stroke Mother Lucifer Migraines Mother Lucifer Diabetes Father Pedafile Hypertension Father Pedafile Stroke Father Pedafile Diabetes Daughter Hypertension Daughter Mental illness Daughter No Known Problems Son Breast cancer Mother's Sister Joelle Hypertension Mother's Sister Joelle Cancer Maternal Grandmother Joan Asthma Maternal Grandmother Joan Hypertension Maternal Grandmother Joan Thyroid disease Maternal Grandmother Joan Cancer Maternal Grandfather Wilfredo Asthma Maternal Grandfather Wilfredo Hypertension Maternal Grandfather Wilfredo Cancer Paternal Grandmother Susan Cancer Paternal Grandfather Kenefic Social History Tobacco Use Smoking status: Former Current packs/day: 0.00 Average packs/day: 1 pack/day for 15.8 years (15.8 ttl pk-yrs) Types: Cigarettes Start date: 09/21/2004 Quit date: 07/22/2020 Years since quittin.7 Smokeless tobacco: Never Tobacco comments: Last smoked : 1-3 months Substance Use Topics Alcohol use: Not Currently Comment: 1-2 drinks 2-4x a month in the past year, Caffeine intake: 1-2 cups per day tea Allergies: Penicillins, Amoxicillin, Codeine, Doxycycline, and Morphine Vitals: 04/21/24 0911 BP: 140/82 Pulse: 96 SpO2: 98% Body mass index is 56.44 kg/m . weight: 289 lb Neurologic exam: Mental status and general appearance: Awake and alert with unlabored respirations. Oriented to person, place, and time. Recent and remote memory are generally intact. Speech is clear and fluent without aphasia. Speech is non-dysarthric. Attention and concentration are normal. Fund of knowledge is appropriate for level of education. Obese. Pleasant. Cranial nerves: CN II: Visual acuity is normal. Visual varela full to confrontation. CN III, IV, : Pupils are equal, round, and reactive to light. Extraocular movements intact. No ptosis present. CN V: Facial sensation is normal. CN VII: Full and symmetric facial movement. CN VIII: Hearing is normal to finger rub bilaterally. CN IX and X: Palate elevates symmetrically. CN XI: Shoulder shrug is normal bilaterally. CN XII: Tongue is midline without atrophy or fasciculation. Motor: RUE strength deltoid , biceps , triceps , wrist extensors , wrist flexor , and piano regulator inspector strength 5/5. LUE strength deltoid , biceps , triceps , wrist extensors , wrist flexor , and piano regulator inspector strength 5/5. RLE strength iliopsoas, quadriceps, tibialis anterior, and plantar flexion strength 5/5. LLE strength iliopsoas, quadriceps, tibialis anterior, and plantar flexion strength 5/5. Tone and bulk are normal. Sensory: Sensation is intact to light touch throughout all four extremities. Sensation is intact to temperature in all extremities. Reflexes: RUE biceps reflex 1+ , brachioradialis reflex 1+. LUE biceps reflex 1+ , brachioradialis reflex 1+. RLE knee reflex 1+. LLE knee reflex 1+. Coordination: [id number] testing normal. Rapid alternating movements are normal. Gait: Normal. Review and summary of old records: MRI of the brain on 06/14/23: No evidence of acute intracranial pathology. Partially empty sella. Question of IIH. CT of the brain at [facility] on 05/16/23: No acute findings. Labs at [facility] on 03/28/23: Electrolyte panel unremarkable aside from chloride of 112 (mild elevation). B12 344. Labs on 02/24/23: Electrolyte panel unremarkable aside from chloride of 112 and CO2 of 20. Urine negative. Labs on 11/22/22: Electrolyte panel unremarkable. I reviewed records from the patient's OD examination on 11/28/22 which showed no evidence of intracranial hypertenion on fundoscopy or oct rfnl. Revealed mild optic nerve head drusen. OD had suspicion for tension-type headaches given that they start posteriorly and recommended a neck X-ray. OD also recommended sleep study. Lumbar puncture from 12/22/22 with opening pressure 26.5 cm CSF. CSF - cytology negative for malignancy. No anaerobes isolated. PCR panel negative. CC&Diff okay. Protein WNL. Glucose mildly elevated in the low 70s. MRI brain with and without contrast on 11/10/22: Findings suggestive of idiopathic intracranial hypertension, clinical correlation advised. Partially empty sella. Mildly prominent CSF spaces about the optic nerves without significant scleral flattening. Borderline cerebellar tonsillar ectopia. Diminutive left transverse dural venous sinus. Slight distal narrowing of the right transverse dural venous sinus. Prominent retropharyngeal lymph nodes. Small T1/T2 bright lesion of the occipital calvarium, nonspecific, possibly hemangioma. EMG of the right upper extremity at [facility] on 06/01/22: A median neuropathy on the right, at or distal to the wrist, such as in carpal tunnel syndrome, which is moderate in degree electrically. No evidence of cervical motor radiculopathy or brachial plexopathy. Routine EEG on 02/10/20: Unremarkable. MRI brain w/o contrast on 02/24/20: Generally unremarkable but does show mild cerebellar tonsillar ectopia (3 mm) as well as CSF signal fluid partially filling the pituitary fossa (likely an arachnoid cyst). CT head on 12/24/19: Unremarkable. CTA head and neck on 12/24/19: Unremarkable aside from a left thyroid lobe nodule. Assessment/Plan Diagnoses and all orders for this visit: Idiopathic intracranial hypertension (IIH) MRI of the brain on 11/10/22 revealed findings suggestive of IIH, and diagnostic lumbar puncture confirmed mild intracranial hypertension with opening pressure of 26.5 cm CSF. Ophthalmology examination on 11/28/22 did not identify ocular evidence of intracranial hypertension. Repeat MRI of the brain on 06/14/23 again identified findings that can be seen in the setting of IIH such as partially empty sella, torturous optic nerves, and CSF around the optic nerves. The patient stopped acetazolamide earlier this year due to but states she delivered in January 2024. I believe it is important to restart her on treatment for IIH. She reports headaches, pulsatile tinnitus, and subjectively worsening vision recently, all of which could be secondary to intracranial hypertension. PLAN: - Start acetazolamide 250 mg tablet - I advised the patient to take 1 tablet by mouth twice a day for 14 days. If well tolerated without adverse effects, I advised the patient to increase the dose to 2 tablets by mouth twice a day after 14 days. I counseled the patient on potential side effects. She verbalizes understanding and wishes to proceed. I advised the patient not to breastfeed while taking this medication, as it can cause adverse reactions in the breastfed infant. She is okay with not and verbalizes understanding. States she will utilize donor breast milk - Weight reduction measures - I recommended the patient schedule an appointment with opthalmology for evaluation due to her reports of worsening vision. She states she has an appointment with [facility] in [place], [place], on 04/24/2024 Encounter prior to initiation of medication Plan to restart acetazolamide. PLAN: - Check labs (CMP) Morning headache The patient is obese and reports headaches upon waking in addition to snoring and subjective memory impairment; all concerning for MOLINA. No known apneic episodes. PLAN: - She has been referred to [facility] sleep medicine for consideration for PSG to rule out a sleep-related breathing disorder such as MOLINA which could be contributory to her symptoms Migraine with aura and without status migrainosus, not intractable It is my impression that the patient has migraine. Verapamil, topiramate, and Ajovy were ineffective for migraine management previously, and sumatriptan and rizatriptan were not tolerated. Nurtec was effective in the past. PLAN: - Could consider restarting Qulipta in the future. The patient previously took this but discontinued use due to - Adequate hydration, sleep hygiene, stress management, and regular physical activity as tolerated - Avoid triptans due to history of possible complex/atypical migraines Facial numbness Blurry vision The patient reports intermittent facial numbness in varying locations. She had an MRI of the brain on 06/14/23 which did not identify any apparent cause for her facial numbness at that time. However, she states the location of her symptoms has since changed. Given her concurrent report of worsening vision, I believe an updated MRI is indicated to evaluate for an intracranial lesion which could explain her symptoms. PLAN: - MRI of the brain Carpal tunnel syndrome, right wrist RUE EMG on 06/01/22 identified right carpal tunnel syndrome (moderate severity). The patient also reports symptoms concerning for a possible peripheral mononeuropathy on the left. PLAN: - Follow with orthopedic surgery (Dr. Guzman) for management - I have recommended EMG of the LUE previously, but the patient has declined this Arachnoid cyst MRI of the brain on 02/24/20 revealed CSF signal fluid partially filling the pituitary fossa; likely an arachnoid cyst. Repeat MRI was stable. Memory impairment Subjective memory impairment. No significant impact on her functional ability. Vitamin B12 level on 03/28/23 was 344, and the patient is treated for hypothyroidism with levothyroxine. MRI of the brain on 06/14/23 did not identify any apparent cause for her symptoms. The patient's memory impairment is potentially related to anxiety, undiagnosed sleep apnea, and/or poor sleep quality (she has 3 children at home under the age of 3 years). PLAN: - Follow with primary care provider for optimal management of hypothyroidism - I recommended the patient follow up closely with psychiatry for anxiety management and also sleep medicine to rule out MOLINA Anxiety PLAN: - Follow up closely with [facility] psychiatry Diagnosis and treatment options discussed in detail. All questions answered. The patient verbalizes understanding and is agreeable to the plan. Discussion in layman's terms. Follow up in the office within 1 month; sooner if needed for new or worsening symptoms. Razia Muller NP [facility] Advanced Neurology documented in this encounter [facility] 04-21-2024 Instructions Razia Muller NP - 04/21/2024 9:00 AM EST - MRI of the brain ([facility]) - Check labs ([facility]) for medication monitoring - Restart acetazolamide 250 mg by mouth twice a day for 2 weeks. Then increase as directed documented in this encounter [facility] 03-18-2024 History of Present illness Narrative Reason for Appointment: Patient ID: Yani Stevens is a 34 y.o. female who presents for No chief complaint on file. Patient presents today for Post Follow Up appointment. MEDICATIONS Current Outpatient Medications Medication Instructions acetaminophen (TYLENOL) 1,000 mg, Every 6 hours PRN albuterol HFA 90 mcg/act inhaler 2 puffs, Every 6 hours PRN Alcohol Swabs (Alcohol Prep) 70 % pads APPLY 1 PAD TOPICALLY DAILY USE FOUR TIMES DAILY TO CHECK FSBS. BD Pen Needle Jodi 2nd Gen 32G X 4 MM misc USE 1 NEEDLE WITH INSULIN PEN TO INJECT MEDICATION UNDER THE SKIN AT BEDTIME Blood Glucose Monitoring Suppl (D-Care Glucometer) w/Device kit 1 kit, Does not apply, Daily, Use four times daily to check FSBS. In the morning prior to breakfast & 1 hour after each meal for a total of 4times daily. cetirizine (ZYRTEC) 10 mg, Oral, Daily citalopram (CELEXA) 40 mg, Oral, Daily fluticasone (Flonase) 50 MCG/ACT nasal spray SPRAY 1 SPRAY INTO EACH NOSTRIL IN THE MORNING labetalol (NORMODYNE) 100 mg, Oral, 2 times daily lamoTRIgine (LaMICtal) 25 MG tablet 1 PO QHS x 2 weeks then 2 PO QHS Lancets ([employer] Delica Plus [id number]) misc USE 1 DAILY TO CHECK BLOOD SUGAR FOUR TIMES DAILY levothyroxine (SYNTHROID, LEVOXYL) 75 mcg, Oral, Every morning metFORMIN (Glucophage) 500 MG tablet TAKE ONE TABLET BY MOUTH EVERY MORNING AND TAKE ONE TABLET BY MOUTH EVERY EVENING NIFEdipine XL (Procardia XL) 60 MG 24 hr tablet 1 tablet, Daily ondansetron ODT (Zofran-ODT) 4 MG disintegrating tablet TAKE 1 TABLET (4 MG) BY MOUTH EVERY 6 (SIX) HOURS IF NEEDED FOR NAUSEA OR VOMITING FOR UP TO 15 DAYS OneTouch Verio test strip USE IN THE MORNING PRIOR TO BREAKFAST, 1 HOUR AFTER EACH MEAL FOR A TOTAL OF 4TIMES DAILY. 27-1 MG tablet 1 tablet, Oral, Daily valACYclovir (VALTREX) 500 mg, Oral, Daily ALLERGIES Allergies Allergen Reactions Penicillins Anaphylaxis Other Reaction(s): Anaphylaxis, shortness of breath, Unknown Reaction Amoxicillin Other Reaction(s): Anaphylaxis Codeine Hives Other Reaction(s): Hives Doxycycline Hives Morphine Hives Other Reaction(s): Anaphylaxis Other Reaction(s): Anaphylaxis, hives PROBLEMS Active Ambulatory Problems Diagnosis Date Noted Acne rosacea, papular type 12/06/2022 Acquired hypothyroidism ([facility]) 12/06/2022 TITA (generalized anxiety disorder) ([facility]) 12/06/2022 Atopic dermatitis, unspecified 12/06/2022 Migraine without aura and with status migrainosus, not intractable ([facility]) 12/06/2022 Bipolar 1 disorder, depressed, mild ([facility]) 12/06/2022 Chondromalacia of patella, left 12/06/2022 Chronic rhinitis 12/06/2022 Entrapment of right ulnar nerve 12/06/2022 Essential hypertension ([facility]) 12/06/2022 Fatty liver 12/06/2022 Genital herpes simplex 12/06/2022 History of partial thyroidectomy ([facility]) 12/06/2022 Insomnia 12/06/2022 Posttraumatic stress disorder ([facility]) 06/19/2018 Thyroid mass ([facility]) 12/06/2022 IIH (idiopathic intracranial hypertension) 05/22/2023 Paresthesia 08/22/2023 Facial numbness 08/22/2023 Carpal tunnel syndrome, right 08/22/2023 Arachnoid cyst 08/22/2023 Abnormal MRI of head 08/22/2023 Class 3 severe obesity due to excess calories with serious comorbidity and body mass index (BMI) of 50.0 to 59.9 in adult ([facility]) 02/25/2024 Resolved Ambulatory Problems Diagnosis Date Noted Abnormality in heart rate/rhythm, antepartum condition or complication 07/31/2011 Amenorrhea 12/06/2022 Anemia affecting in third trimester 12/06/2022 Antepartum depression ([facility]) 11/30/2021 Chronic hypertension affecting 07/22/2022 Diarrhea 12/06/2022 Gestational diabetes mellitus (GDM), antepartum 12/06/2022 History of delivery 07/20/2022 Hypertension affecting in third trimester 07/20/2022 Missed menses 12/06/2022 IUD (intrauterine device) in place 07/20/2022 Lower abdominal pain 12/06/2022 Major depression, single episode ([facility]) 12/06/2022 Maxillary sinus cyst 12/06/2022 Morbid obesity with BMI of 60.0-69.9, adult ([facility]) 07/20/2022 Mouth sores 12/06/2022 Pain in left knee 12/06/2022 Postoperative state 07/20/2022 Tobacco use disorder affecting , antepartum 05/04/2011 Wound dehiscence 12/06/2022 Acute bilateral thoracic back pain 02/14/2023 Midline low back pain without sciatica 02/14/2023 Sinusitis 08/22/2023 Unspecified sprain of right shoulder joint, initial encounter 08/22/2023 Memory impairment 08/22/2023 Anxiety 08/22/2023 Acute bronchitis due to other specified organisms 08/24/2023 Normal in first trimester 08/24/2023 Second trimester 10/29/2023 32 weeks gestation of 01/01/2024 Past Medical History: Diagnosis Date Abnormal ECG 2021 Abnormal Pap smear of cervix 2019 Ankle sprain 2010 Asthma ([facility]) Bacterial vaginosis Bipolar depression ([facility]) Cholecystitis Chondromalacia CTS (carpal tunnel syndrome) 2020 Genital herpes GERD (gastroesophageal reflux disease) Gestational diabetes mellitus Hypothyroidism (acquired) ([facility]) Knee sprain 2016 Low back pain Low back strain 2014 Migraines ([facility]) Obesity Ovarian cyst 2020 Overdose 05/2018 Post-traumatic stress disorder ([facility]) Rosacea Rotator cuff syndrome 2021 Tear of meniscus of knee 2016 Thyroid disorder ([facility]) Thyroid nodule ([facility]) Urinary tract infection 2020 HISTORY PAST MEDICAL HISTORY SOCIAL HISTORY Past Medical History: Diagnosis Date Abnormal ECG 2021 Abnormal Pap smear of cervix 2020 Ankle sprain 2010 Anxiety Asthma (CMS/HCC) Bacterial vaginosis Bipolar depression ([facility]) Cholecystitis Chondromalacia CTS (carpal tunnel syndrome) 2020 Essential hypertension ([facility]) Facial numbness Fatty liver Genital herpes GERD (gastroesophageal reflux disease) Gestational diabetes mellitus Hypothyroidism (acquired) ([facility]) IIH (idiopathic intracranial hypertension) Knee sprain 2016 Low back pain Low back strain 2014 Migraines ([facility]) Obesity Ovarian cyst 2020 Overdose 05/2018 aspiration ; pneumonia Post-traumatic stress disorder ([facility]) Rosacea Rotator cuff syndrome 2021 Tear of meniscus of knee 2015 Thyroid disorder ([facility]) Thyroid nodule ([facility]) Urinary tract infection 2020 Social History Tobacco Use Smoking status: Former Current packs/day: 0.00 Average packs/day: 1 pack/day for 15.8 years (15.8 ttl pk-yrs) Types: Cigarettes Start date: 09/21/2004 Quit date: 07/22/2020 Years since quittin.6 Smokeless tobacco: Never Tobacco comments: Last smoked : 1-3 months Substance Use Topics Alcohol use: Not Currently Comment: 1-2 drinks 2-4x a month in the past year, Caffeine intake: 1-2 cups per day tea Drug use: Never FAMILY HISTORY Family History Problem Relation Name Age of Onset Diabetes Mother Lucifer Hypertension Mother Lucifer RENEE disease Mother Lucifer Stroke Mother Lucifer Migraines Mother Lucifer Diabetes Father Pedafile Hypertension Father Pedafile Stroke Father Pedafile Diabetes Daughter Hypertension Daughter Mental illness Daughter No Known Problems Son Breast cancer Mother's Sister Joelle Hypertension Mother's Sister Joelle Cancer Maternal Grandmother Joan Asthma Maternal Grandmother Joan Hypertension Maternal Grandmother Joan Thyroid disease Maternal Grandmother Joan Cancer Maternal Grandfather Wilfredo Asthma Maternal Grandfather Wilfredo Hypertension Maternal Grandfather Wilfredo Cancer Paternal Grandmother Susan Cancer Paternal Grandfather Kenefic SURGICAL HISTORY Past Surgical History: Procedure Laterality Date ANAL SPHINCTEROTOMY SECTION, LOW TRANSVERSE 07/29/2021 x2 CHOLECYSTECTOMY 2014 COLONOSCOPY 2017 EXCISIONAL HEMORRHOIDECTOMY HEMORRHOID SURGERY KNEE SURGERY 12/2015 scope KNEE SURGERY 12/04/2017 left knee scope - Dr. Guzman LIPOMA RESECTION 2013 LIPOMA RESECTION OTHER SURGICAL HISTORY 02/2018 excision of blue nevus scalp THYROIDECTOMY, PARTIAL Left 05/21/2020 WISDOM TOOTH EXTRACTION 2007 REVIEW OF SYSTEMS Review of Systems: Review of Systems Constitutional: Negative. HENT: Negative. Eyes: Negative. Respiratory: Negative. Cardiovascular: Negative. Gastrointestinal: Negative. Genitourinary: Positive for dysuria and vaginal discharge. Musculoskeletal: Negative. Skin: Negative. Neurological: Negative. All other systems reviewed and are negative. Hematological: Negative. Endocrine: Negative. Allergic/Immunologic: Negative. OBJECTIVE Objective: Physical Exam Constitutional: Appearance: Normal appearance. She is well-developed. Cardiovascular: Rate and Rhythm: Normal rate and regular rhythm. Pulmonary: Effort: Pulmonary effort is normal. Breath sounds: Normal breath sounds. Abdominal: General: Bowel sounds are normal. There is no distension. Palpations: Abdomen is soft. Tenderness: There is no abdominal tenderness. There is no guarding or rebound. Musculoskeletal: General: No swelling. Normal range of motion. Right lower leg: No edema. Left lower leg: No edema. Neurological: Mental Status: She is alert and oriented to person, place, and time. Skin: General: Skin is warm and dry. Psychiatric: Mood and Affect: Mood normal. Behavior: Behavior normal. Vitals and nursing note reviewed. Exam conducted with a drafter assistant present. Vitals: Estimated body mass index is 55.27 kg/m as calculated from the following: Height as of 02/25/24: 5'. Weight as of 02/25/24: 283 lb. BP: No LMP recorded. ASSESSMENT & PLAN ICD-10-CM 1. UTI symptoms R39.9 2. 6 weeks follow-up Z39.2 3. Vaginal discharge N89.8 Post Follow Up: Patient is doing well but has complaints of vaginal discharge, dysuria, uti symptoms. Patient presents today for 6 week visit. Patient is s/p delivery, Pt had hysterectomy with section d/t placenta accreta. Patient is on medication for depression, but denies suicidal and homicidal ideations. Rx for diflucan and and macrobid faxed to pharmacy. Pt to come off of labetalol, and continue procardia. Pt to return for annual unless needed sooner. Follow Up: Patient is to return for annual unless needed otherwise. Documented by Jackie Tran LPN on behalf of: Mk Kee DO documented in this encounter [facility] 02-25-2024 History of Present illness Narrative Associated Problem(s): Class 3 severe obesity due to excess calories with serious comorbidity and body mass index (BMI) of 50.0 to 59.9 in adult ([facility]) Weight loss indicated. Associated Problem(s): TITA (generalized anxiety disorder) (CMS/HCC) Worsening depression and add lamictal. Increase celexa. Follow with psychiatry. Associated Problem(s): Bipolar 1 disorder, depressed, mild (CMS/HCC) Worsening depression and add lamictal. Increase celexa. Follow with psychiatry. Associated Problem(s): Essential hypertension (CMS/HCC) BP controlled and monitor PRN. Associated Problem(s): Migraine without aura and with status migrainosus, not intractable (CMS/HCC) [place] stable and use medication PRN. Images from the original note were not included. Subjective Patient ID: Yani Stevens is a 34 y.o. female who presents for Follow-up (6m f/up/Rib pain). Follow up HTN, bipolar, anxiety, and migraines. Patient stable. Admitted 01/27 due to uncontrolled HTN and preeclampsia. Patient had C-sec and hysterectomy 01/28 due to placenta accreta. Doing well since home. Seen by OB and healing. Checking BP PRN and typically controlled. BP normal today. Taking medication daily and tolerating without side effects. Mood worse. Down, sad, and no motivation. Not want to do anything or be around others. Doesn't feel happy. Nervous and worry all the time. Stressed out and overwhelmed. Thought racing and hard to clear mind. Anna, irritable and snapping at others. Easily upset and overreact. Not back to psychiatry and on celexa. Migraines stable and need to schedule with neurology. Review of Systems Respiratory: Negative for cough, shortness of breath and wheezing. Cardiovascular: Negative for chest pain and palpitations. Gastrointestinal: Negative for abdominal pain, diarrhea, nausea and vomiting. Genitourinary: Negative for dysuria. Objective Physical Exam Constitutional: General: She is not in acute distress. Appearance: Normal appearance. HENT: Head: Normocephalic. Right Ear: Tympanic membrane normal. Left Ear: Tympanic membrane normal. Eyes: Extraocular Movements: Extraocular movements intact. Pupils: Pupils are equal, round, and reactive to light. Cardiovascular: Rate and Rhythm: Normal rate and regular rhythm. Heart sounds: No murmur heard. No friction rub. No gallop. Pulmonary: Effort: Pulmonary effort is normal. Breath sounds: Normal breath sounds. No wheezing, rhonchi or rales. Abdominal: General: Bowel sounds are normal. There is no distension. Palpations: Abdomen is soft. Tenderness: There is no abdominal tenderness. There is no guarding or rebound. Musculoskeletal: Cervical back: Neck supple. Right lower leg: No edema. Left lower leg: No edema. Neurological: Mental Status: She is alert. Assessment/Plan Problem List Items Addressed This Visit TITA (generalized anxiety disorder) (CMS/HCC) Worsening depression and add lamictal. Increase celexa. Follow with psychiatry. Migraine without aura and with status migrainosus, not intractable (CMS/HCC) [place] stable and use medication PRN. Bipolar 1 disorder, depressed, mild (CMS/HCC) Worsening depression and add lamictal. Increase celexa. Follow with psychiatry. Relevant Medications citalopram (CeleXA) 40 MG tablet lamoTRIgine (LaMICtal) 25 MG tablet Essential hypertension (CMS/HCC) - Primary BP controlled and monitor PRN. documented in this encounter [facility] 02-18-2024 History of Present illness Narrative Pt presents today for BP check. BP reading was 126/82. I spoke with Dr Kee who advised he wants pt to decrease Labetalol to 100mg TID and return in one week for another check. Pt made aware, she verbalized understanding. documented in this encounter [facility] 02-05-2024 History of Present illness Narrative Reason for Appointment: Patient ID: Yani Stevens is a 33 y.o. female who presents for Follow-up Patient presents today for Post Follow Up appointment. MEDICATIONS Current Outpatient Medications Medication Instructions acetaminophen (TYLENOL) 1,000 mg, Oral, Every 6 hours PRN acetaZOLAMIDE (DIAMOX) 500 mg, Oral, 2 times daily albuterol HFA 90 mcg/act inhaler 2 puffs, Inhalation, Every 6 hours PRN Alcohol Swabs (Alcohol Prep) 70 % pads APPLY 1 PAD TOPICALLY DAILY USE FOUR TIMES DAILY TO CHECK FSBS. BD Pen Needle Jodi 2nd Gen 32G X 4 MM mis USE 1 NEEDLE WITH INSULIN PEN TO INJECT MEDICATION UNDER THE SKIN AT BEDTIME Blood Glucose Monitoring Suppl ([employer] Glucometer) w/Device kit 1 kit, Does not apply, Daily, Use four times daily to check FSBS. In the morning prior to breakfast & 1 hour after each meal for a total of 4times daily. cetirizine (ZYRTEC) 10 mg, Oral, Daily citalopram (CELEXA) 20 mg, Oral, Daily fluticasone (Flonase) 50 MCG/ACT nasal spray SPRAY 1 SPRAY INTO EACH NOSTRIL IN THE MORNING HumaLOG KWIKPEN 100 UNIT/ML injection INJECT 6 UNITS UNDER THE SKIN BEFORE DINNER labetalol (NORMODYNE) 100 mg, Oral, 2 times daily Lancets (OneTouch Delica Plus [id number]) [facility] [place] 1 DAILY TO CHECK BLOOD SUGAR FOUR TIMES DAILY levothyroxine (SYNTHROID, LEVOXYL) 75 mcg, Oral, Every morning magnesium oxide (MAG-OX) 400 mg, Oral, Daily metFORMIN (Glucophage) 500 MG tablet TAKE ONE TABLET BY MOUTH EVERY MORNING AND TAKE ONE TABLET BY MOUTH EVERY EVENING NovoLIN N FlexPen 30 Units, Subcutaneous, Nightly ondansetron ODT (Zofran-ODT) 4 MG disintegrating tablet TAKE 1 TABLET (4 MG) BY MOUTH EVERY 6 (SIX) HOURS IF NEEDED FOR NAUSEA OR VOMITING FOR UP TO 15 DAYS OneTouch Verio test strip USE IN THE MORNING PRIOR TO BREAKFAST, 1 HOUR AFTER EACH MEAL FOR A TOTAL OF 4TIMES DAILY. 27-1 MG tablet 1 tablet, Oral, Daily valACYclovir (VALTREX) 500 mg, Oral, Daily ALLERGIES Allergies Allergen Reactions Penicillins Anaphylaxis Other Reaction(s): Anaphylaxis, shortness of breath, Unknown Reaction Amoxicillin Other Reaction(s): Anaphylaxis Codeine Hives Other Reaction(s): Hives Doxycycline Hives Morphine Hives Other Reaction(s): Anaphylaxis Other Reaction(s): Anaphylaxis, hives Nasal [place] Other Reaction(s): Unknown Reaction PROBLEMS Active Ambulatory Problems Diagnosis Date Noted Acne rosacea, papular type 12/06/2022 Acquired hypothyroidism ([facility]) 12/06/2022 TITA (generalized anxiety disorder) ([facility]) 12/06/2022 Atopic dermatitis, unspecified 12/06/2022 Migraine without aura and with status migrainosus, not intractable ([facility]) 12/06/2022 Bipolar I disorder with narciso ([facility]) 12/06/2022 Chondromalacia of patella, left 12/06/2022 Chronic rhinitis 12/06/2022 Entrapment of right ulnar nerve 12/06/2022 Essential hypertension ([facility]) 12/06/2022 Fatty liver 12/06/2022 Genital herpes simplex 12/06/2022 Gestational diabetes mellitus (GDM), antepartum 12/06/2022 History of partial thyroidectomy ([facility]) 12/06/2022 Insomnia 12/06/2022 Posttraumatic stress disorder ([facility]) 06/19/2018 Thyroid mass ([facility]) 12/06/2022 IIH (idiopathic intracranial hypertension) 05/22/2023 Paresthesia 08/22/2023 Facial numbness 08/22/2023 Carpal tunnel syndrome, right 08/22/2023 Arachnoid cyst 08/22/2023 Abnormal MRI of head 08/22/2023 Memory impairment 08/22/2023 Acute bronchitis due to other specified organisms 08/24/2023 Normal in first trimester 08/24/2023 Second trimester 10/29/2023 32 weeks gestation of 01/01/2024 Resolved Ambulatory Problems Diagnosis Date Noted Abnormality in heart rate/rhythm, antepartum condition or complication 07/31/2011 Amenorrhea 12/06/2022 Anemia affecting in third trimester 12/06/2022 Antepartum depression ([facility]) 11/30/2021 Chronic hypertension affecting 07/22/2022 Diarrhea 12/06/2022 History of delivery 07/20/2022 Hypertension affecting in third trimester 07/20/2022 Missed menses 12/06/2022 IUD (intrauterine device) in place 07/20/2022 Lower abdominal pain 12/06/2022 Major depression, single episode ([facility]) 12/06/2022 Maxillary sinus cyst 12/06/2022 Morbid obesity with BMI of 60.0-69.9, adult ([facility]) 07/20/2022 Mouth sores 12/06/2022 Pain in left knee 12/06/2022 Postoperative state 07/20/2022 Tobacco use disorder affecting , antepartum 05/04/2011 Wound dehiscence 12/06/2022 Acute bilateral thoracic back pain 02/14/2023 Midline low back pain without sciatica 02/14/2023 Sinusitis 08/22/2023 Unspecified sprain of right shoulder joint, initial encounter 08/22/2023 Anxiety 08/22/2023 Past Medical History: Diagnosis Date Abnormal ECG 2021 Abnormal Pap smear of cervix 2019 Ankle sprain 2010 Asthma ([facility]) Bacterial vaginosis Bipolar depression ([facility]) Cholecystitis Chondromalacia CTS (carpal tunnel syndrome) 2020 Genital herpes GERD (gastroesophageal reflux disease) Gestational diabetes mellitus Hypothyroidism (acquired) ([facility]) Knee sprain 2016 Low back pain Low back strain 2014 Migraines ([facility]) Obesity Ovarian cyst 2020 Overdose 05/2018 Post-traumatic stress disorder ([facility]) Rosacea Rotator cuff syndrome 2021 Tear of meniscus of knee 2016 Thyroid disorder ([facility]) Thyroid nodule ([facility]) Urinary tract infection 2020 HISTORY PAST MEDICAL HISTORY SOCIAL HISTORY Past Medical History: Diagnosis Date Abnormal ECG 2021 Abnormal Pap smear of cervix 2020 Ankle sprain 2010 Anxiety Asthma ([facility]) Bacterial vaginosis Bipolar depression ([facility]) Cholecystitis Chondromalacia CTS (carpal tunnel syndrome) 2020 Essential hypertension ([facility]) Facial numbness Fatty liver Genital herpes GERD (gastroesophageal reflux disease) Gestational diabetes mellitus Hypothyroidism (acquired) ([facility]/HCC) IIH (idiopathic intracranial hypertension) Knee sprain 2016 Low back pain Low back strain 2014 Migraines (CMS/[facility]) Obesity Ovarian cyst 2020 Overdose 05/2018 aspiration ; pneumonia Post-traumatic stress disorder (CMS/[facility]) Rosacea Rotator cuff syndrome 2021 Tear of meniscus of knee 2015 Thyroid disorder (CMS/HCC) Thyroid nodule (CMS/HCC) Urinary tract infection 2020 Social History Tobacco Use Smoking status: Former Current packs/day: 0.00 Average packs/day: 1 pack/day for 15.8 years (15.8 ttl pk-yrs) Types: Cigarettes Start date: 09/21/2004 Quit date: 07/22/2020 Years since quittin.5 Smokeless tobacco: Never Tobacco comments: Last smoked : 1-3 months Substance Use Topics Alcohol use: Not Currently Comment: 1-2 drinks 2-4x a month in the past year, Caffeine intake: 1-2 cups per day tea Drug use: Never FAMILY HISTORY Family History Problem Relation Name Age of Onset Diabetes Mother Lucifer Hypertension Mother Lucifer RENEE disease Mother Lucifer Stroke Mother Lucifer Migraines Mother Lucifer Diabetes Father Pedafile Hypertension Father Pedafile Stroke Father Pedafile Diabetes Daughter Hypertension Daughter Mental illness Daughter No Known Problems Son Breast cancer Mother's Sister Joelle Hypertension Mother's Sister Joelle Cancer Maternal Grandmother Joan Asthma Maternal Grandmother Joan Hypertension Maternal Grandmother Joan Thyroid disease Maternal Grandmother Joan Cancer Maternal Grandfather Wilfredo Asthma Maternal Grandfather Wilfredo Hypertension Maternal Grandfather Wilfredo Cancer Paternal Grandmother Susan Cancer Paternal Grandfather Yazmin SURGICAL HISTORY Past Surgical History: Procedure Laterality Date ANAL SPHINCTEROTOMY SECTION, LOW TRANSVERSE 07/29/2021 x2 CHOLECYSTECTOMY 2014 COLONOSCOPY 2017 EXCISIONAL HEMORRHOIDECTOMY HEMORRHOID SURGERY KNEE SURGERY 12/2015 scope KNEE SURGERY 12/04/2017 left knee scope - Dr. Guzman LIPOMA RESECTION 2013 LIPOMA RESECTION OTHER SURGICAL HISTORY 02/2018 excision of blue nevus scalp THYROIDECTOMY, PARTIAL Left 05/21/2020 WISDOM TOOTH EXTRACTION 2007 REVIEW OF SYSTEMS Review of Systems: Review of Systems Constitutional: Negative. HENT: Negative. Eyes: Negative. Respiratory: Negative. Cardiovascular: Negative. Gastrointestinal: Negative. Genitourinary: Negative. Musculoskeletal: Negative. Skin: Negative. Neurological: Negative. All other systems reviewed and are negative. Hematological: Negative. Endocrine: Negative. Allergic/Immunologic: Negative. OBJECTIVE Objective: Physical Exam Constitutional: Appearance: Normal appearance. She is well-developed. Cardiovascular: Rate and Rhythm: Normal rate and regular rhythm. Pulmonary: Effort: Pulmonary effort is normal. Breath sounds: Normal breath sounds. Abdominal: General: Bowel sounds are normal. There is no distension. Palpations: Abdomen is soft. Tenderness: There is no abdominal tenderness. There is no guarding or rebound. Musculoskeletal: General: No swelling. Normal range of motion. Right lower leg: No edema. Left lower leg: No edema. Neurological: Mental Status: She is alert and oriented to person, place, and time. Skin: General: Skin is warm and dry. Psychiatric: Mood and Affect: Mood normal. Behavior: Behavior normal. Vitals and nursing note reviewed. Exam conducted with a drafter assistant present. Vitals: Estimated body mass index is 55.46 kg/m as calculated from the following: Height as of 08/24/23: 5'. Weight as of this encounter: 284 lb. BP: 116/72 Patient's last menstrual period was 05/16/2023. ASSESSMENT & PLAN ICD-10-CM 1. care following delivery Z39.2 2. Status post emergency hysterectomy Z90.710 Pt presents one week postop- Pt was seen at [facility] last week and delivered via section - placenta accreta noted and hysterectomy performed as well- Wound vac removed today in office. Pt advised to decrease labetalol to 200mg- three times a day and continue on procardia. Pt to return for bp check next week/ Documented by Jackie Tran LPN on behalf of: Mk Kee DO documented in this encounter [facility] 01-17-2024 History of Present illness Narrative Reason for Appointment: Patient ID: Yani Stevens is a 33 y.o. female who presents for ER Follow-up Patient presents today for Return OB appointment. and Consult appointment. MEDICATIONS Current Outpatient Medications Medication Instructions acetaminophen (TYLENOL) 1,000 mg, Oral, Every 6 hours PRN acetaZOLAMIDE (DIAMOX) 500 mg, Oral, 2 times daily albuterol HFA 90 mcg/act inhaler 2 puffs, Inhalation, Every 6 hours PRN Alcohol Swabs (Alcohol Prep) 70 % pads APPLY 1 PAD TOPICALLY DAILY USE FOUR TIMES DAILY TO CHECK FSBS. BD Pen Needle Jodi 2nd Gen 32G X 4 MM misc USE 1 NEEDLE WITH INSULIN PEN TO INJECT MEDICATION UNDER THE SKIN AT BEDTIME Blood Glucose Monitoring Suppl ([email or web address] Glucometer) w/Device kit 1 kit, Does not apply, Daily, Use four times daily to check FSBS. In the morning prior to breakfast & 1 hour after each meal for a total of 4times daily. cetirizine (ZYRTEC) 10 mg, Oral, Daily citalopram (CELEXA) 20 mg, Oral, Daily fluticasone (Flonase) 50 MCG/ACT nasal spray SPRAY 1 SPRAY INTO EACH NOSTRIL IN THE MORNING HumaLOG KWIKPEN 100 UNIT/ML injection INJECT 6 UNITS UNDER THE SKIN BEFORE DINNER labetalol (NORMODYNE) 100 mg, Oral, 2 times daily Lancets ([employer] Delica Plus [id number]) misc USE 1 DAILY TO CHECK BLOOD SUGAR FOUR TIMES DAILY levothyroxine (SYNTHROID, LEVOXYL) 75 mcg, Oral, Every morning metFORMIN (Glucophage) 500 MG tablet TAKE ONE TABLET BY MOUTH EVERY MORNING AND TAKE ONE TABLET BY MOUTH EVERY EVENING NovoLIN N FlexPen 30 Units, Subcutaneous, Nightly ondansetron ODT (Zofran-ODT) 4 MG disintegrating tablet TAKE 1 TABLET (4 MG) BY MOUTH EVERY 6 (SIX) HOURS IF NEEDED FOR NAUSEA OR VOMITING FOR UP TO 15 DAYS [place] [employer] Verio test strip USE IN THE MORNING PRIOR TO BREAKFAST, 1 HOUR AFTER EACH MEAL FOR A TOTAL OF 4TIMES DAILY. 27-1 MG tablet 1 tablet, Oral, Daily valACYclovir (VALTREX) 500 mg, Oral, Daily ALLERGIES Allergies Allergen Reactions Penicillins Anaphylaxis Other Reaction(s): Anaphylaxis, shortness of breath, Unknown Reaction Amoxicillin Other Reaction(s): Anaphylaxis Codeine Hives Other Reaction(s): Hives Doxycycline Hives Morphine Hives Other Reaction(s): Anaphylaxis Other Reaction(s): Anaphylaxis, hives Nasal [place] Other Reaction(s): Unknown Reaction PROBLEMS Active Ambulatory Problems Diagnosis Date Noted Acne rosacea, papular type 12/06/2022 Acquired hypothyroidism ([facility]) 12/06/2022 TITA (generalized anxiety disorder) ([facility]) 12/06/2022 Atopic dermatitis, unspecified 12/06/2022 Migraine without aura and with status migrainosus, not intractable [place] 12/06/2022 Bipolar I disorder with narciso [place] 12/06/2022 Chondromalacia of patella, left 12/06/2022 Chronic rhinitis 12/06/2022 Entrapment of right ulnar nerve 12/06/2022 Essential hypertension (CMS/HCC) 12/06/2022 Fatty liver 12/06/2022 Genital herpes simplex 12/06/2022 Gestational diabetes mellitus (GDM), antepartum 12/06/2022 History of partial thyroidectomy ([facility] [facility] 12/06/2022 Insomnia 12/06/2022 Posttraumatic stress disorder ([facility]) 06/19/2018 Thyroid mass ([facility]) 12/06/2022 IIH (idiopathic intracranial hypertension) 05/22/2023 Paresthesia 08/22/2023 Facial numbness 08/22/2023 Carpal tunnel syndrome, right 08/22/2023 Arachnoid cyst 08/22/2023 Abnormal MRI of head 08/22/2023 Memory impairment 08/22/2023 Acute bronchitis due to other specified organisms 08/24/2023 Normal in first trimester 08/24/2023 Second trimester 10/29/2023 32 weeks gestation of 01/01/2024 Resolved Ambulatory Problems Diagnosis Date Noted Abnormality in heart rate/rhythm, antepartum condition or complication 07/31/2011 Amenorrhea 12/06/2022 Anemia affecting in third trimester 12/06/2022 Antepartum depression ([facility]) 11/30/2021 Chronic hypertension affecting 07/22/2022 Diarrhea 12/06/2022 History of delivery 07/20/2022 Hypertension affecting in third trimester 07/20/2022 Missed menses 12/06/2022 IUD (intrauterine device) in place 07/20/2022 Lower abdominal pain 12/06/2022 Major depression, single episode ([facility]) 12/06/2022 Maxillary sinus cyst 12/06/2022 Morbid obesity with BMI of 60.0-69.9, adult ([facility]) 07/20/2022 Mouth sores 12/06/2022 Pain in left knee 12/06/2022 Postoperative state 07/20/2022 Tobacco use disorder affecting , antepartum 05/04/2011 Wound dehiscence 12/06/2022 Acute bilateral thoracic back pain 02/14/2023 Midline low back pain without sciatica 02/14/2023 Sinusitis 08/22/2023 Unspecified sprain of right shoulder joint, initial encounter 08/22/2023 Anxiety 08/22/2023 Past Medical History: Diagnosis Date Ankle sprain 2009 Asthma ([facility]) Bacterial vaginosis Bipolar depression ([facility]) Cholecystitis Chondromalacia CTS (carpal tunnel syndrome) 2020 Genital herpes GERD (gastroesophageal reflux disease) Gestational diabetes mellitus Hypothyroidism (acquired) ([facility]) Knee sprain 2015 Low back pain Low back strain 2013 Migraines ([facility]) Obesity Overdose 05/2018 Post-traumatic stress disorder ([facility]) Rosacea Rotator cuff syndrome 2021 Tear of meniscus of knee 2015 Thyroid disorder ([facility]) Thyroid nodule ([facility]) HISTORY PAST MEDICAL HISTORY SOCIAL HISTORY Past Medical History: Diagnosis Date Ankle sprain 2009 Anxiety Asthma ([facility]) Bacterial vaginosis Bipolar depression ([facility]) Cholecystitis Chondromalacia CTS (carpal tunnel syndrome) 2020 Essential hypertension ([facility]) Facial numbness Fatty liver Genital herpes GERD (gastroesophageal reflux disease) Gestational diabetes mellitus Hypothyroidism (acquired) ([facility]) IIH (idiopathic intracranial hypertension) Knee sprain 2015 Low back pain Low back strain 2013 Migraines ([facility]) Obesity Overdose 05/2018 aspiration ; pneumonia Post-traumatic stress disorder ([facility]) Rosacea Rotator cuff syndrome 2021 Tear of meniscus of knee 2016 Thyroid disorder ([facility]) Thyroid nodule ([facility]) Social History Tobacco Use Smoking status: Former Current packs/day: 0.00 Average packs/day: 1 pack/day for 15.8 years (15.8 ttl pk-yrs) Types: Cigarettes Start date: 09/21/2004 Quit date: 07/22/2020 Years since quittin.4 Smokeless tobacco: Never Tobacco comments: Last smoked : 1-3 months Substance Use Topics Alcohol use: Not Currently Comment: 1-2 drinks 2-4x a month in the past year, Caffeine intake: 1-2 cups per day tea Drug use: Never FAMILY HISTORY Family History Problem Relation Name Age of Onset Diabetes Mother Lucifer Hypertension Mother Lucifer RENEE disease Mother Lucifer Stroke Mother Lucifer Diabetes Father Hypertension Father Stroke Father Diabetes Daughter Hypertension Daughter Mental illness Daughter No Known Problems Son Breast cancer Mother's Sister Cancer Maternal Grandmother Joan Asthma Maternal Grandmother Joan Cancer Maternal Grandfather Wilfredo Asthma Maternal Grandfather Wilfredo Cancer Paternal Grandmother Susan Cancer Paternal Grandfather Yazmin SURGICAL HISTORY Past Surgical History: Procedure Laterality Date ANAL SPHINCTEROTOMY SECTION, LOW TRANSVERSE 07/29/2021 x2 CHOLECYSTECTOMY 2014 COLONOSCOPY 2017 EXCISIONAL HEMORRHOIDECTOMY HEMORRHOID SURGERY KNEE SURGERY 12/2015 scope KNEE SURGERY 12/04/2017 left knee scope - Dr. Guzman LIPOMA RESECTION 2013 LIPOMA RESECTION OTHER SURGICAL HISTORY 02/2018 excision of blue nevus scalp THYROIDECTOMY, PARTIAL Left 05/21/2020 WISDOM TOOTH EXTRACTION 2007 REVIEW OF SYSTEMS Review of Systems: Review of Systems OBJECTIVE Objective: OBGyn Exam Vitals: Estimated body mass index is 59.61 kg/m as calculated from the following: Height as of 08/24/23: 5'. Weight as of this encounter: 305 lb 3.2 oz. BP: 128/88 Patient's last menstrual period was 05/16/2023. ASSESSMENT & PLAN ICD-10-CM 1. Hypertension affecting in third trimester O16.3 POCT urinalysis dipstick manually resulted 2. Follow-up exam Z09 Patient presents for ER follow up HTN hospital visit. Discussed BP readings and advised patient to continue with NST/BPP's at the hospital. Patient voiced that she is having mary horses and wanted to know what she could take. Advised patient to take tums with calcium and magnesium daily which will be sent to [facility] pharmacy. RTC in 2 week. Documented by Claudia Kenny LPN on behalf of: Mk Kee DO documented in this encounter [facility] 01-15-2024 History of Present illness Narrative Reason for Appointment: Patient ID: Yani Stevens is a 33 y.o. female who presents for Routine Visit Patient presents today for Return OB appointment. MEDICATIONS Current Outpatient Medications Medication Instructions acetaZOLAMIDE (DIAMOX) 500 mg, Oral, 2 times daily albuterol HFA 90 mcg/act inhaler 2 puffs, Inhalation, Every 6 hours PRN Alcohol Swabs (Alcohol Prep) 70 % pads APPLY 1 PAD TOPICALLY DAILY USE FOUR TIMES DAILY TO CHECK FSBS. BD Pen Needle Jodi 2nd Gen 32G X 4 MM misc USE 1 NEEDLE WITH INSULIN PEN TO INJECT MEDICATION UNDER THE SKIN AT BEDTIME Blood Glucose Monitoring Suppl ([email or web address] Glucometer) w/Device kit 1 kit, Does not apply, Daily, Use four times daily to check FSBS. In the morning prior to breakfast & 1 hour after each meal for a total of 4times daily. cetirizine (ZYRTEC) 10 mg, Oral, Daily citalopram (CELEXA) 20 mg, Oral, Daily fluticasone (Flonase) 50 MCG/ACT nasal spray SPRAY 1 SPRAY INTO EACH NOSTRIL IN THE MORNING HumaLOG KWIKPEN 100 UNIT/ML injection INJECT 6 UNITS UNDER THE SKIN BEFORE DINNER labetalol (NORMODYNE) 100 mg, Oral, 2 times daily Lancets ([employer] Delica Plus [id number]) misc USE 1 DAILY TO CHECK BLOOD SUGAR FOUR TIMES DAILY levothyroxine (SYNTHROID, LEVOXYL) 75 mcg, Oral, Every morning metFORMIN (Glucophage) 500 MG tablet TAKE ONE TABLET BY MOUTH EVERY MORNING AND TAKE ONE TABLET BY MOUTH EVERY EVENING NovoLIN N FlexPen 30 Units, Subcutaneous, Nightly ondansetron ODT (Zofran-ODT) 4 MG disintegrating tablet TAKE 1 TABLET (4 MG) BY MOUTH EVERY 6 (SIX) HOURS IF NEEDED FOR NAUSEA OR VOMITING FOR UP TO 15 DAYS [place] [employer] Verio test strip USE IN THE MORNING PRIOR TO BREAKFAST, 1 HOUR AFTER EACH MEAL FOR A TOTAL OF 4TIMES DAILY. 27-1 MG tablet 1 tablet, Oral, Daily ALLERGIES Allergies Allergen Reactions Penicillins Anaphylaxis Amoxicillin Other Reaction(s): Anaphylaxis Codeine Hives Other Reaction(s): Hives Doxycycline Hives Morphine Hives Other Reaction(s): Anaphylaxis PROBLEMS Active Ambulatory Problems Diagnosis Date Noted Acne rosacea, papular type 12/06/2022 Acquired hypothyroidism ([facility]) 12/06/2022 TITA (generalized anxiety disorder) ([facility]) 12/06/2022 Atopic dermatitis, unspecified 12/06/2022 Migraine without aura and with status migrainosus, not intractable [place] 12/06/2022 Bipolar I disorder with narciso [place] 12/06/2022 Chondromalacia of patella, left 12/06/2022 Chronic rhinitis 12/06/2022 Entrapment of right ulnar nerve 12/06/2022 Essential hypertension ([facility]) 12/06/2022 Fatty liver 12/06/2022 Genital herpes simplex 12/06/2022 Gestational diabetes mellitus (GDM), antepartum 12/06/2022 History of partial thyroidectomy (CMS/HCC) 12/06/2022 Insomnia 12/06/2022 Posttraumatic stress disorder (CMS/HCC) 06/19/2018 Thyroid mass (CMS/HCC) 12/06/2022 IIH (idiopathic intracranial hypertension) 05/22/2023 Paresthesia 08/22/2023 Facial numbness 08/22/2023 Carpal tunnel syndrome, right 08/22/2023 Arachnoid cyst 08/22/2023 Abnormal MRI of head 08/22/2023 Memory impairment 08/22/2023 Acute bronchitis due to other specified organisms 08/24/2023 Normal in first trimester 08/24/2023 Second trimester 10/29/2023 32 weeks gestation of 01/01/2024 Resolved Ambulatory Problems Diagnosis Date Noted Abnormality in heart rate/rhythm, antepartum condition or complication 07/31/2011 Amenorrhea 12/06/2022 Anemia affecting in third trimester 12/06/2022 Antepartum depression ([facility]) 11/30/2021 Chronic hypertension affecting 07/22/2022 Diarrhea 12/06/2022 History of delivery 07/20/2022 Hypertension affecting in third trimester 07/20/2022 Missed menses 12/06/2022 IUD (intrauterine device) in place 07/20/2022 Lower abdominal pain 12/06/2022 Major depression, single episode ([facility]) 12/06/2022 Maxillary sinus cyst 12/06/2022 Morbid obesity with BMI of 60.0-69.9, adult ([facility]) 07/20/2022 Mouth sores 12/06/2022 Pain in left knee 12/06/2022 Postoperative state 07/20/2022 Tobacco use disorder affecting , antepartum 05/04/2011 Wound dehiscence 12/06/2022 Acute bilateral thoracic back pain 02/14/2023 Midline low back pain without sciatica 02/14/2023 Sinusitis 08/22/2023 Unspecified sprain of right shoulder joint, initial encounter 08/22/2023 Anxiety 08/22/2023 Past Medical History: Diagnosis Date Ankle sprain 2010 Asthma ([facility]) Bacterial vaginosis Bipolar depression ([facility]) Cholecystitis Chondromalacia CTS (carpal tunnel syndrome) 2020 Genital herpes GERD (gastroesophageal reflux disease) Gestational diabetes mellitus Hypothyroidism (acquired) ([facility]) Knee sprain 2015 Low back pain Low back strain 2013 Migraines ([facility]) Obesity Overdose 05/2018 Post-traumatic stress disorder ([facility]) Rosacea Rotator cuff syndrome 2021 Tear of meniscus of knee 2015 Thyroid disorder ([facility]) Thyroid nodule ([facility]) HISTORY PAST MEDICAL HISTORY SOCIAL HISTORY Past Medical History: Diagnosis Date Ankle sprain 2010 Anxiety Asthma ([facility]) Bacterial vaginosis Bipolar depression ([facility]) Cholecystitis Chondromalacia CTS (carpal tunnel syndrome) 2020 Essential hypertension ([facility]) Facial numbness Fatty liver Genital herpes GERD (gastroesophageal reflux disease) Gestational diabetes mellitus Hypothyroidism (acquired) ([facility]) IIH (idiopathic intracranial hypertension) Knee sprain 2015 Low back pain Low back strain 2013 Migraines ([facility]) Obesity Overdose 05/2018 aspiration ; pneumonia Post-traumatic stress disorder ([facility]) Rosacea Rotator cuff syndrome 2021 Tear of meniscus of knee 2015 Thyroid disorder ([facility]) Thyroid nodule ([facility]) Social History Tobacco Use Smoking status: Former Current packs/day: 0.00 Average packs/day: 1 pack/day for 15.8 years (15.8 ttl pk-yrs) Types: Cigarettes Start date: 09/21/2004 Quit date: 07/22/2020 Years since quittin.4 Smokeless tobacco: Never Tobacco comments: Last smoked : 1-3 months Substance Use Topics Alcohol use: Not Currently Comment: 1-2 drinks 2-4x a month in the past year, Caffeine intake: 1-2 cups per day tea Drug use: Never FAMILY HISTORY Family History Problem Relation Name Age of Onset Diabetes Mother Lucifer Hypertension Mother Lucifer RENEE disease Mother Lucifer Stroke Mother Lucifer Diabetes Father Hypertension Father Stroke Father Diabetes Daughter Hypertension Daughter Mental illness Daughter No Known Problems Son Breast cancer Mother's Sister Cancer Maternal Grandmother Joan Asthma Maternal Grandmother Joan Cancer Maternal Grandfather Wilfredo Asthma Maternal Grandfather Wilfredo Cancer Paternal Grandmother Susan Cancer Paternal Grandfather Kenefic SURGICAL HISTORY Past Surgical History: Procedure Laterality Date ANAL SPHINCTEROTOMY SECTION, LOW TRANSVERSE 07/29/2021 x2 CHOLECYSTECTOMY 2014 COLONOSCOPY 2017 EXCISIONAL HEMORRHOIDECTOMY HEMORRHOID SURGERY KNEE SURGERY 12/2015 scope KNEE SURGERY 12/04/2017 left knee scope - Dr. Guzman LIPOMA RESECTION 2013 LIPOMA RESECTION OTHER SURGICAL HISTORY 02/2018 excision of blue nevus scalp THYROIDECTOMY, PARTIAL Left 05/21/2020 WISDOM TOOTH EXTRACTION 2007 REVIEW OF SYSTEMS Review of Systems: Review of Systems Constitutional: Negative. HENT: Negative. Eyes: Negative. Respiratory: Negative. Cardiovascular: Negative. Gastrointestinal: Negative. Genitourinary: Negative. Musculoskeletal: Negative. Skin: Negative. Neurological: Negative. All other systems reviewed and are negative. Hematological: Negative. Endocrine: Negative. Allergic/Immunologic: Negative. OBJECTIVE Objective: Physical Exam Constitutional: Appearance: Normal appearance. She is well-developed. Cardiovascular: Rate and Rhythm: Normal rate and regular rhythm. Pulmonary: Effort: Pulmonary effort is normal. Breath sounds: Normal breath sounds. Abdominal: General: Bowel sounds are normal. There is no distension. Palpations: Abdomen is soft. Tenderness: There is no abdominal tenderness. There is no guarding or rebound. Musculoskeletal: General: No swelling. Normal range of motion. Right lower leg: No edema. Left lower leg: No edema. Neurological: Mental Status: She is alert and oriented to person, place, and time. Skin: General: Skin is warm and dry. Psychiatric: Mood and Affect: Mood normal. Behavior: Behavior normal. Vitals and nursing note reviewed. Exam conducted with a drafter assistant present. Vitals: Estimated body mass index is 58.74 kg/m as calculated from the following: Height as of 08/24/23: 5'. Weight as of 01/03/24: 300 lb 12 oz. BP: Patient's last menstrual period was 05/16/2023. ASSESSMENT & PLAN ICD-10-CM 1. Third trimester Z34.93 POCT urinalysis dipstick manually resulted Return OB: Patient presents today for a routine obstetrics appointment. Patient is currently 34w0d . Patient states she is doing well but has complaints of being tired due to current . Patient has verbalizes frequent movement. labor precautions was discussed/given and patient was instructed to perform kick counts three times a day. DISCUSSED SUGARS. Rx for valtrex faxed to pharmacy. Orders Placed This Encounter Procedures POCT urinalysis dipstick manually resulted Follow Up: Patient is to return to office in 2 week for routine OB appointment. Documented by Jackie Tran LPN on behalf of: Mk Kee DO documented in this encounter [facility] 01-03-2024 History of Present illness Narrative Reason for Appointment: Patient ID: Yani Stevens is a 33 y.o. female who presents for Routine Visit Patient presents today for Return OB appointment. MEDICATIONS Current Outpatient Medications Medication Instructions acetaZOLAMIDE (DIAMOX) 500 mg, Oral, 2 times daily albuterol HFA 90 mcg/act inhaler 2 puffs, Inhalation, Every 6 hours PRN Alcohol Swabs (Alcohol Prep) 70 % pads APPLY 1 PAD TOPICALLY DAILY USE FOUR TIMES DAILY TO CHECK FSBS. BD Pen Needle Jodi 2nd Gen 32G X 4 MM misc USE 1 NEEDLE WITH INSULIN PEN TO INJECT MEDICATION UNDER THE SKIN AT BEDTIME Blood Glucose Monitoring Suppl ([employer] Glucometer) w/Device kit 1 kit, Does not apply, Daily, Use four times daily to check FSBS. In the morning prior to breakfast & 1 hour after each meal for a total of 4times daily. cetirizine (ZYRTEC) 10 mg, Oral, Daily fluticasone (Flonase) 50 MCG/ACT nasal spray SPRAY 1 SPRAY INTO EACH NOSTRIL IN THE MORNING HumaLOG KWIKPEN 100 UNIT/ML injection INJECT 6 UNITS UNDER THE SKIN BEFORE DINNER labetalol (NORMODYNE) 100 mg, Oral, 2 times daily Lancets (OneTouch Delica Plus [id number]) misc USE 1 DAILY TO CHECK BLOOD SUGAR FOUR TIMES DAILY levothyroxine (SYNTHROID, LEVOXYL) 75 mcg, Oral, Every morning metFORMIN (Glucophage) 500 MG tablet TAKE ONE TABLET BY MOUTH EVERY MORNING AND TAKE ONE TABLET BY MOUTH EVERY EVENING NovoLIN N FlexPen 30 Units, Subcutaneous, Nightly ondansetron ODT (Zofran-ODT) 4 MG disintegrating tablet TAKE 1 TABLET (4 MG) BY MOUTH EVERY 6 (SIX) HOURS IF NEEDED FOR NAUSEA OR VOMITING FOR UP TO 15 DAYS [employer] Verio test strip USE IN THE MORNING PRIOR TO BREAKFAST, 1 HOUR AFTER EACH MEAL FOR A TOTAL OF 4TIMES DAILY. 27-1 MG tablet 1 tablet, Oral, Daily ALLERGIES Allergies Allergen Reactions Penicillins Anaphylaxis Amoxicillin Other Reaction(s): Anaphylaxis Codeine Hives Other Reaction(s): Hives Doxycycline Hives Morphine Hives Other Reaction(s): Anaphylaxis PROBLEMS Active Ambulatory Problems Diagnosis Date Noted Acne rosacea, papular type 12/06/2022 Acquired hypothyroidism ([facility]) 12/06/2022 TITA (generalized anxiety disorder) ([facility]) 12/06/2022 Atopic dermatitis, unspecified 12/06/2022 Migraine without aura and with status migrainosus, not intractable ([facility]) 12/06/2022 Bipolar I disorder with narciso ([facility]) 12/06/2022 Chondromalacia of patella, left 12/06/2022 Chronic rhinitis 12/06/2022 Entrapment of right ulnar nerve 12/06/2022 Essential hypertension ([facility]) 12/06/2022 Fatty liver 12/06/2022 Genital herpes simplex 12/06/2022 Gestational diabetes mellitus (GDM), antepartum 12/06/2022 History of partial thyroidectomy ([facility]) 12/06/2022 Insomnia 12/06/2022 Posttraumatic stress disorder ([facility]) 06/19/2018 Thyroid mass ([facility]) 12/06/2022 IIH (idiopathic intracranial hypertension) 05/22/2023 Paresthesia 08/22/2023 Facial numbness 08/22/2023 Carpal tunnel syndrome, right 08/22/2023 Arachnoid cyst 08/22/2023 Abnormal MRI of head 08/22/2023 Memory impairment 08/22/2023 Acute bronchitis due to other specified organisms 08/24/2023 Normal in first trimester 08/24/2023 Second trimester 10/29/2023 32 weeks gestation of 01/01/2024 Resolved Ambulatory Problems Diagnosis Date Noted Abnormality in heart rate/rhythm, antepartum condition or complication 07/31/2011 Amenorrhea 12/06/2022 Anemia affecting in third trimester 12/06/2022 Antepartum depression ([facility]) 11/30/2021 Chronic hypertension affecting 07/22/2022 Diarrhea 12/06/2022 History of delivery 07/20/2022 Hypertension affecting in third trimester 07/20/2022 Missed menses 12/06/2022 IUD (intrauterine device) in place 07/20/2022 Lower abdominal pain 12/06/2022 Major depression, single episode ([facility]) 12/06/2022 Maxillary sinus cyst 12/06/2022 Morbid obesity with BMI of 60.0-69.9, adult ([facility]) 07/20/2022 Mouth sores 12/06/2022 Pain in left knee 12/06/2022 Postoperative state 07/20/2022 Tobacco use disorder affecting , antepartum 05/04/2011 Wound dehiscence 12/06/2022 Acute bilateral thoracic back pain 02/14/2023 Midline low back pain without sciatica 02/14/2023 Sinusitis 08/22/2023 Unspecified sprain of right shoulder joint, initial encounter 08/22/2023 Anxiety 08/22/2023 Past Medical History: Diagnosis Date Ankle sprain 2009 Asthma ([facility]) Bacterial vaginosis Bipolar depression ([facility]) Cholecystitis Chondromalacia CTS (carpal tunnel syndrome) 2020 Genital herpes GERD (gastroesophageal reflux disease) Gestational diabetes mellitus Hypothyroidism (acquired) ([facility]) Knee sprain 2015 Low back pain Low back strain 2013 Migraines ([facility]) Obesity Overdose 05/2018 Post-traumatic stress disorder ([facility]) Rosacea Rotator cuff syndrome 2021 Tear of meniscus of knee 2015 Thyroid disorder ([facility]) Thyroid nodule ([facility]) HISTORY PAST MEDICAL HISTORY SOCIAL HISTORY Past Medical History: Diagnosis Date Ankle sprain 2009 Anxiety Asthma ([facility]) Bacterial vaginosis Bipolar depression ([facility]) Cholecystitis Chondromalacia CTS (carpal tunnel syndrome) 2020 Essential hypertension ([facility]) Facial numbness Fatty liver Genital herpes GERD (gastroesophageal reflux disease) Gestational diabetes mellitus Hypothyroidism (acquired) ([facility]) IIH (idiopathic intracranial hypertension) Knee sprain 2016 Low back pain Low back strain 2014 Migraines ([facility]) Obesity Overdose 05/2018 aspiration ; pneumonia Post-traumatic stress disorder ([facility]) Rosacea Rotator cuff syndrome 2021 Tear of meniscus of knee 2016 Thyroid disorder ([facility]) Thyroid nodule ([facility]) Social History Tobacco Use Smoking status: Former Current packs/day: 0.00 Average packs/day: 1 pack/day for 15.8 years (15.8 ttl pk-yrs) Types: Cigarettes Start date: 09/21/2004 Quit date: 07/22/2020 Years since quittin.4 Smokeless tobacco: Never Tobacco comments: Last smoked : 1-3 months Substance Use Topics Alcohol use: Not Currently Comment: 1-2 drinks 2-4x a month in the past year, Caffeine intake: 1-2 cups per day tea Drug use: Never FAMILY HISTORY Family History Problem Relation Name Age of Onset Diabetes Mother Lucifer Hypertension Mother Lucifer RENEE disease Mother Lucifer Stroke Mother Lucifer Diabetes Father Hypertension Father Stroke Father Diabetes Daughter Hypertension Daughter Mental illness Daughter No Known Problems Son Breast cancer Mother's Sister Cancer Maternal Grandmother Joan Asthma Maternal Grandmother Joan Cancer Maternal Grandfather Wilfredo Asthma Maternal Grandfather Wilfredo Cancer Paternal Grandmother Susan Cancer Paternal Grandfather Yazmin SURGICAL HISTORY Past Surgical History: Procedure Laterality Date ANAL SPHINCTEROTOMY SECTION, LOW TRANSVERSE 07/29/2021 x2 CHOLECYSTECTOMY 2014 COLONOSCOPY 2017 EXCISIONAL HEMORRHOIDECTOMY HEMORRHOID SURGERY KNEE SURGERY 12/2015 scope KNEE SURGERY 12/04/2017 left knee scope - Dr. Colemananic LIPOMA RESECTION 2013 LIPOMA RESECTION OTHER SURGICAL HISTORY 02/2018 excision of blue nevus scalp THYROIDECTOMY, PARTIAL Left 05/21/2020 WISDOM TOOTH EXTRACTION 2007 REVIEW OF SYSTEMS Review of Systems: Review of Systems All other systems reviewed and are negative. OBJECTIVE Objective: Physical Exam Constitutional: Appearance: Normal appearance. She is well-developed. Cardiovascular: Rate and Rhythm: Normal rate and regular rhythm. Pulmonary: Effort: Pulmonary effort is normal. Breath sounds: Normal breath sounds. Abdominal: General: Bowel sounds are normal. There is no distension. Palpations: Abdomen is soft. Tenderness: There is no abdominal tenderness. There is no guarding or rebound. Musculoskeletal: General: No swelling. Normal range of motion. Right lower leg: No edema. Left lower leg: No edema. Neurological: Mental Status: She is alert and oriented to person, place, and time. Skin: General: Skin is warm and dry. Psychiatric: Mood and Affect: Mood normal. Behavior: Behavior normal. Vitals and nursing note reviewed. Exam conducted with a drafter assistant present. Vitals: Estimated body mass index is 58.74 kg/m as calculated from the following: Height as of 08/24/23: 5'. Weight as of this encounter: 300 lb 12 oz. BP: 132/84 Patient's last menstrual period was 05/16/2023. ASSESSMENT & PLAN ICD-10-CM 1. Third trimester Z34.93 POCT urinalysis dipstick manually resulted Patient presents today for a routine obstetrics appointment. Patient is currently 32w2d with a Estimated Date of Delivery: 02/26/24. Patient was seen at [facility]. Patient was diagnosed with UTI and BV, but only given Flagyl. Sent in Cleocin to pharmacy for UTI. Patient to return to clinic in 2 weeks Advised patient that she needs to continue to send blood sugar results to [facility] and also to reach out to [facility] to setup weekly and bi-weekly scans. Documented by Claudia Kenny LPN on behalf of: Mk Kee DO documented in this encounter [facility] 12-31-2023 Hospital Discharge instructions Ellen Dunn RN - 12/31/2023 1:33 PM EDT Notify your physician if you experience any of the following: Intermittent low back pain Abdominal or menstrual like cramping that is constant or heavier, that comes and goes Vaginal pressure Uterine contractions that are regular and timeable Bag of water breaks or you feel a gush of fluid Any vaginal bleeding that is heavier than a menstrual period Decrease or absence of baby movement Drink plenty of fluids Take all prescribed medications Keep all scheduled appointments documented in this encounter [facility] 12-17-2023 History of Present illness Narrative Reason for Appointment: Patient ID: Yani Stevens is a 33 y.o. female who presents for Routine Visit Patient presents today for Return OB appointment. MEDICATIONS Current Outpatient Medications Medication Instructions acetaZOLAMIDE (DIAMOX) 500 mg, Oral, 2 times daily albuterol HFA 90 mcg/act inhaler 2 puffs, Inhalation, Every 6 hours PRN Alcohol Swabs (Alcohol Prep) 70 % pads APPLY 1 PAD TOPICALLY DAILY USE FOUR TIMES DAILY TO CHECK FSBS. BD Pen Needle Jodi 2nd Gen 32G X 4 MM misc USE 1 NEEDLE WITH INSULIN PEN TO INJECT MEDICATION UNDER THE SKIN AT BEDTIME Blood Glucose Monitoring Suppl ([email or web address] Glucometer) w/Device kit 1 kit, Does not apply, Daily, Use four times daily to check FSBS. In the morning prior to breakfast & 1 hour after each meal for a total of 4times daily. cetirizine (ZYRTEC) 10 mg, Oral, Daily docusate sodium (COLACE) 100 mg, Oral, 2 times daily PRN fluticasone (Flonase) 50 MCG/ACT nasal spray SPRAY 1 SPRAY INTO EACH NOSTRIL IN THE MORNING HumaLOG KWIKPEN 100 UNIT/ML injection INJECT 6 UNITS UNDER THE SKIN BEFORE DINNER labetalol (NORMODYNE) 100 mg, Oral, 2 times daily Lancets (Teneros Delica Plus [id number]) misc USE 1 DAILY TO CHECK BLOOD SUGAR FOUR TIMES DAILY levothyroxine (SYNTHROID, LEVOXYL) 75 mcg, Oral, Every morning metFORMIN (Glucophage) 500 MG tablet TAKE ONE TABLET BY MOUTH EVERY MORNING AND TAKE ONE TABLET BY MOUTH EVERY EVENING NovoLIN N FlexPen 30 Units, Subcutaneous, Nightly ondansetron ODT (Zofran-ODT) 4 MG disintegrating tablet TAKE 1 TABLET (4 MG) BY MOUTH EVERY 6 (SIX) HOURS IF NEEDED FOR NAUSEA OR VOMITING FOR UP TO 15 DAYS [place] [employer] Verio test strip USE IN THE MORNING PRIOR TO BREAKFAST, 1 HOUR AFTER EACH MEAL FOR A TOTAL OF 4TIMES DAILY. 27-1 MG tablet 1 tablet, Oral, Daily ALLERGIES Allergies Allergen Reactions Penicillins Anaphylaxis Amoxicillin Other Reaction(s): Anaphylaxis Codeine Hives Other Reaction(s): Hives Doxycycline Hives Morphine Hives Other Reaction(s): Anaphylaxis PROBLEMS Active Ambulatory Problems Diagnosis Date Noted Acne rosacea, papular type 12/06/2022 Acquired hypothyroidism ([facility]) 12/06/2022 TITA (generalized anxiety disorder) ([facility]) 12/06/2022 Atopic dermatitis, unspecified 12/06/2022 Migraine without aura and with status migrainosus, not intractable ([facility]) 12/06/2022 Bipolar I disorder with narciso ([facility]) 12/06/2022 Chondromalacia of patella, left 12/06/2022 Chronic rhinitis 12/06/2022 Entrapment of right ulnar nerve 12/06/2022 Essential hypertension ([facility]) 12/06/2022 Fatty liver 12/06/2022 Genital herpes simplex 12/06/2022 Gestational diabetes mellitus (GDM), antepartum 12/06/2022 History of partial thyroidectomy ([facility]) 12/06/2022 Insomnia 12/06/2022 Posttraumatic stress disorder ([facility]) 06/19/2018 Thyroid mass ([facility]) 12/06/2022 IIH (idiopathic intracranial hypertension) 05/22/2023 Paresthesia 08/22/2023 Facial numbness 08/22/2023 Carpal tunnel syndrome, right 08/22/2023 Arachnoid cyst 08/22/2023 Abnormal MRI of head 08/22/2023 Memory impairment 08/22/2023 Acute bronchitis due to other specified organisms 08/24/2023 Normal in first trimester 08/24/2023 Second trimester 10/29/2023 Resolved Ambulatory Problems Diagnosis Date Noted Abnormality in heart rate/rhythm, antepartum condition or complication 07/31/2011 Amenorrhea 12/06/2022 Anemia affecting in third trimester 12/06/2022 Antepartum depression ([facility]) 11/30/2021 Chronic hypertension affecting 07/22/2022 Diarrhea 12/06/2022 History of delivery 07/20/2022 Hypertension affecting in third trimester 07/20/2022 Missed menses 12/06/2022 IUD (intrauterine device) in place 07/20/2022 Lower abdominal pain 12/06/2022 Major depression, single episode ([facility]) 12/06/2022 Maxillary sinus cyst 12/06/2022 Morbid obesity with BMI of 60.0-69.9, adult ([facility]) 07/20/2022 Mouth sores 12/06/2022 Pain in left knee 12/06/2022 Postoperative state 07/20/2022 Tobacco use disorder affecting , antepartum 05/04/2011 Wound dehiscence 12/06/2022 Acute bilateral thoracic back pain 02/14/2023 Midline low back pain without sciatica 02/14/2023 Sinusitis 08/22/2023 Unspecified sprain of right shoulder joint, initial encounter 08/22/2023 Anxiety 08/22/2023 Past Medical History: Diagnosis Date Ankle sprain 2010 Asthma ([facility]) Bacterial vaginosis Bipolar depression ([facility]) Cholecystitis Chondromalacia CTS (carpal tunnel syndrome) 2020 Genital herpes GERD (gastroesophageal reflux disease) Gestational diabetes mellitus Hypothyroidism (acquired) ([facility]) Knee sprain 2015 Low back pain Low back strain 2013 Migraines ([facility]) Obesity Overdose 05/2018 Post-traumatic stress disorder ([facility]) Rosacea Rotator cuff syndrome 2021 Tear of meniscus of knee 2015 Thyroid disorder ([facility]) Thyroid nodule ([facility]) HISTORY PAST MEDICAL HISTORY SOCIAL HISTORY Past Medical History: Diagnosis Date Ankle sprain 2010 Anxiety Asthma ([facility]) Bacterial vaginosis Bipolar depression ([facility]) Cholecystitis Chondromalacia CTS (carpal tunnel syndrome) 2020 Essential hypertension ([facility]) Facial numbness Fatty liver Genital herpes GERD (gastroesophageal reflux disease) Gestational diabetes mellitus Hypothyroidism (acquired) ([facility]) IIH (idiopathic intracranial hypertension) Knee sprain 2015 Low back pain Low back strain 2013 Migraines ([facility]) Obesity Overdose 05/2018 aspiration ; pneumonia Post-traumatic stress disorder ([facility]) Rosacea Rotator cuff syndrome 2021 Tear of meniscus of knee 2015 Thyroid disorder ([facility]) Thyroid nodule ([facility]) Social History Tobacco Use Smoking status: Former Current packs/day: 0.00 Average packs/day: 1 pack/day for 15.8 years (15.8 ttl pk-yrs) Types: Cigarettes Start date: 09/21/2004 Quit date: 07/22/2020 Years since quittin.4 Smokeless tobacco: Never Tobacco comments: Last smoked : 1-3 months Substance Use Topics Alcohol use: Not Currently Comment: 1-2 drinks 2-4x a month in the past year, Caffeine intake: 1-2 cups per day tea Drug use: Never FAMILY HISTORY Family History Problem Relation Name Age of Onset Diabetes Mother Lucifer Hypertension Mother Lucifer RENEE disease Mother Lucifer Stroke Mother Lucifer Diabetes Father Hypertension Father Stroke Father Diabetes Daughter Hypertension Daughter Mental illness Daughter No Known Problems Son Breast cancer Mother's Sister Cancer Maternal Grandmother Joan Asthma Maternal Grandmother Joan Cancer Maternal Grandfather Wilfredo Asthma Maternal Grandfather Wilfredo Cancer Paternal Grandmother Susan Cancer Paternal Grandfather Yazmin SURGICAL HISTORY Past Surgical History: Procedure Laterality Date ANAL SPHINCTEROTOMY SECTION, LOW TRANSVERSE 07/29/2021 x2 CHOLECYSTECTOMY 2014 COLONOSCOPY 2017 EXCISIONAL HEMORRHOIDECTOMY HEMORRHOID SURGERY KNEE SURGERY 12/2015 scope KNEE SURGERY 12/04/2017 left knee scope - Dr. Guzman LIPOMA RESECTION 2013 LIPOMA RESECTION OTHER SURGICAL HISTORY 02/2018 excision of blue nevus scalp THYROIDECTOMY, PARTIAL Left 05/21/2020 WISDOM TOOTH EXTRACTION 2007 REVIEW OF SYSTEMS Review of Systems: Review of Systems All other systems reviewed and are negative. OBJECTIVE Objective: Physical Exam Constitutional: Appearance: Normal appearance. She is well-developed. Cardiovascular: Rate and Rhythm: Normal rate and regular rhythm. Pulmonary: Effort: Pulmonary effort is normal. Breath sounds: Normal breath sounds. Abdominal: General: Bowel sounds are normal. There is no distension. Palpations: Abdomen is soft. Tenderness: There is no abdominal tenderness. There is no guarding or rebound. Musculoskeletal: General: No swelling. Normal range of motion. Right lower leg: No edema. Left lower leg: No edema. Neurological: Mental Status: She is alert and oriented to person, place, and time. Skin: General: Skin is warm and dry. Psychiatric: Mood and Affect: Mood normal. Behavior: Behavior normal. Vitals and nursing note reviewed. Exam conducted with a drafter assistant present. Vitals: Estimated body mass index is 59.57 kg/m as calculated from the following: Height as of 08/24/23: 5'. Weight as of this encounter: 305 lb. BP: 130/82 Patient's last menstrual period was 05/16/2023. ASSESSMENT & PLAN ICD-10-CM 1. First trimester Z34.91 Urine dip Patient presents today for a routine obstetrics appointment. Patient is currently 29w6d with a Estimated Date of Delivery: 02/26/24. Patient complaints of right hip pain and pelvic cramps. Patient to return to clinic in 2 weeks for routine OB appointment. Patient forgot to bring sugar readings with her to her appointment. Patient to obtain order NST/BPP order at next visit. Documented by Claudia Kenny LPN on behalf of: Mk Kee DO documented in this encounter [facility] 02-05-2023 Evaluation note Encounter Date Diagnosis Assessment [...] not specified, unspecified location (ICD-10 - J01.90) [employer] Other 04-01-2023 History of Present illness Narrative* Diann Pastor Diaz, DO - 07/22/2022 12:40 AM EDT [...] patient Attending Physician: Dr. Fish Estrada MD Director Of Curriculum And Instruction Resident 07/22/2022, 12:40 AM Attending Physician Statement [...] with patient Attending Physician: Dr. Betina Bush, Director Of Curriculum And Instruction Resident 07/21/2022, 3:02 AM Attending Physician Statement [...] MD 07/21/2022 10:00 AM [facility] [employer] Phone: 1(425) 695-504603-30-2023 Evaluation note* Diagnosis RLTCS w/ IUD 07/20/22 [...] hypertension affecting documented in this encounter [facility] [employer] Phone: 1(963) 561-491903-28-2023 Evaluation note* Encounter Date Diagnosis Assessment Notes [...] other viral communicable diseases (ICD-10 - Z20.828) [employer] Other 11-29-2022 Evaluation note* Encounter Date Diagnosis [...] off of work. We will apply for [facility] approval for therapy. [employer] Other 06-21-2021 NoteEducation Materials Obstetrics and Gynecology [...] Follow these instructions at home: ? Take [id number] and prescription medicines only as told by [...] menstrual period is much (more content not included)...[facility] 01-28-2020 NoteOphthalmology Basics of Medication [...] caregiver questions about your prescriptions and any zoen-tri-ldwxtws medications, vitamins, herbal or dietary supplements that [...] your caregiver or pharm (more content not included)...[facility] Chief complaint+Reason for visit Narrative* Chief Complaint Congestion, fever Reason for Visit Contact with and (grimm spected) exposure to covid-19 [facility] Work Phone: Evaluation note* Diagnosis [...] condition or complication documented in this encounter [facility] Work Phone: evaluation noteNo assessment information available [facility] Work Phone: Evaluation note* Diagnosis Onset Date Resolution Status Contact with and (suspected) exposure to covid-[address] [facility] Work Phone: Evaluation note* Diagnosis Migraine without aura and with status migrainosus, not intractable (CMS/HCC)- Primary TITA (generalized anxiety disorder) (CMS/HCC) Generalized anxiety disorder TITA (generalized anxiety disorder) ([facility])- Primary Generalized anxiety disorder Migraine without aura and with status migrainosus, not intractable ([facility]) Acute bronchitis due to other specified organisms Normal in first trimester care following delivery Status post emergency hysterectomy Acquired absence of both cervix and uterus documented in this encounter [facility] Healthcare[facility]* Diagnosis Migraine without aura and with status migrainosus, not intractable ([facility])- Primary TITA (generalized anxiety disorder) ([facility]) Generalized anxiety disorder TITA (generalized anxiety disorder) ([facility])- Primary Generalized anxiety disorder Migraine without aura and with status migrainosus, not intractable ([facility]) Acute bronchitis due to other specified organisms Normal in first trimester Essential hypertension ([facility])- Primary Unspecified essential hypertension Bipolar 1 disorder, depressed, mild ([facility]) TITA (generalized anxiety disorder) ([facility]) Generalized anxiety disorder Migraine without aura and with status migrainosus, not intractable ([facility]) Class 3 severe obesity due to excess calories with serious comorbidity and body mass index (BMI) of 50.0 to 59.9 in adult [place] documented in this encounter [facility] HealthcareEvaluation note* Diagnosis Migraine without aura and with status migrainosus, not intractable ([facility])- Primary TITA (generalized anxiety disorder) ([facility]) Generalized anxiety disorder TITA (generalized anxiety disorder) ([facility])- Primary Generalized anxiety disorder Migraine without aura and with status migrainosus, not intractable ([facility]) Acute bronchitis due to other specified organisms Normal in first trimester Hypertension affecting in third trimester- Primary Essential hypertension ([facility])- Primary Unspecified essential hypertension Bipolar 1 disorder, depressed, mild ([facility]) TITA (generalized anxiety disorder) ([facility]) Generalized anxiety disorder Migraine without aura and with status migrainosus, not intractable ([facility]) Class 3 severe obesity due to excess calories with serious comorbidity and body mass index (BMI) of 50.0 to 59.9 in adult [place] documented in this encounter [facility] HealthcareEvaluation note* Diagnosis Migraine without aura and with status migrainosus, not intractable ([facility])- Primary TITA (generalized anxiety disorder) ([facility]) Generalized anxiety disorder TITA (generalized anxiety disorder) ([facility])- Primary Generalized anxiety disorder Migraine without aura and with status migrainosus, not intractable ([facility]) Acute bronchitis due to other specified organisms Normal in first trimester Essential hypertension ([facility])- Primary Unspecified essential hypertension Bipolar 1 disorder, depressed, mild ([facility]) TITA (generalized anxiety disorder) ([facility]) Generalized anxiety disorder Migraine without aura and with status migrainosus, not intractable ([facility]) Class 3 severe obesity due to excess calories with serious comorbidity and body mass index (BMI) of 50.0 to 59.9 in adult ([facility]) UTI symptoms 6 weeks follow-up Vaginal discharge Leukorrhea, not specified as infective documented in this encounter [facility]* Diagnosis Third trimester state, incidental Urinary tract infection without hematuria, site unspecified documented in this encounter [facility]* Diagnosis First trimester state, incidental documented in this encounter [facility]* Diagnosis Hypertension affecting in third trimester Follow-up exam Unspecified follow-up examination Leg cramps in documented in this encounter [facility]* Diagnosis Third trimester state, incidental HSV infection Herpes simplex without mention of complication documented [facility] this encounter [facility]* Diagnosis Migraine without aura and with status migrainosus, not intractable ([facility])- Primary TITA (generalized anxiety disorder) ([facility] Generalized anxiety disorder TITA (generalized anxiety disorder) ([facility])- Primary Generalized anxiety disorder Migraine without aura and with status migrainosus, not intractable ([facility]) Acute bronchitis due to other specified organisms Normal in first trimester Essential hypertension ([facility])- Primary Unspecified essential hypertension Bipolar 1 disorder, depressed, mild ([facility]) TITA (generalized anxiety disorder) ([facility]) Generalized anxiety disorder Migraine without aura and with status migrainosus, not intractable ([facility]) Class 3 severe obesity due to excess calories with serious comorbidity and body mass index (BMI) of 50.0 to 59.9 in adult ([facility] IIH (idiopathic intracranial hypertension)- Primary Benign intracranial hypertension Encounter prior to initiation of medication Morning headache Facial numbness Disturbance of skin sensation Blurry vision Other specified visual disturbances Carpal tunnel syndrome, right Carpal tunnel syndrome Arachnoid cyst Cerebral cysts Memory impairment Memory loss Anxiety Anxiety state, unspecified documented [facility] encounter [facility]* Diagnosis Onset Date Resolution Status Admit Date Acute sinusitis acute April [id number] 9:14am [facility] Work Phone: Evaluation note* Diagnosis 31 weeks gestation of - Primary state, incidental documented [facility] encounter [facility]* Diagnosis Migraine without aura and with status migrainosus, not intractable ([facility])- Primary TITA (generalized anxiety disorder) ([facility]) Generalized anxiety disorder TITA (generalized anxiety disorder) ([facility])- Primary Generalized anxiety disorder Migraine without aura and with status migrainosus, not intractable ([facility]) Acute bronchitis due to other specified organisms Normal in first trimester Essential hypertension ([facility])- Primary Unspecified essential hypertension Bipolar 1 disorder, depressed, mild (CMS/HCC) TITA (generalized anxiety disorder) ([facility]) Generalized anxiety disorder Migraine without aura and with status migrainosus, not intractable ([facility]) Class 3 severe obesity due to excess calories with serious comorbidity and body mass index (BMI) of 50.0 to 59.9 in adult ([facility]) Essential hypertension ([facility])- Primary Unspecified essential hypertension Chronic rhinosinusitis Unspecified sinusitis (chronic) Bipolar 1 disorder, depressed, mild ([facility]) Class 3 severe obesity due to excess calories with serious comorbidity and body mass index (BMI) of 50.0 to 59.9 in adult ([facility]) documented in this encounter [facility] Narrative - Reported* Type Description Date Medical History Depression Medical History Bipolar disorder Medical History Hypertension Medical History Hypothyroidism Surgical History cholecystectomy Surgical History wisdom teeth extract Surgical History lipoma removed Surgical History left knee scope x 2 Surgical History hemorrhoidectomy Hospitalization History see above surgical histo ry [facility] Other Hospital Discharge instructions* Attachments The following attachments cannot be sent through Care Everywhere. * Section: Post-op (Brazilian) * Preeclampsia: : General Info (Brazilian) * Depression: ([place]ian) [facility] Work Phone: Summary Purpose Family History Relationship Condition Age [...] history of mental disorder Unknown Advance Directives Latest Code Status on File Code Status Date Activated Date Inactivated Comments Full Code 07/15/2022 3:46 PM Latest Code Status on File Code Status Date Activated Date Inactivated Comments Full Code 07/20/2022 3:15 PM Full Code 07/15/2022 3:46 PM 07/15/2022 9:11 PM Advance Directive Response Recorded Date/ Time Advance Directives No July 26 4:06am Advance Directive Response Recorded Date/ Time Advance Directives No July 26 3:06am Latest Code Status on File Code Status Date Activated Date Inactivated Comments Full Code 07/20/2022 3:15 PM 07/22/2022 3:18 PM Code Status History Code Status Date Activated Date Inactivated Comments Full Code 07/15/2022 3:46 PM 07/15/2022 9:11 PM Date Activated Date Inactivated Comments 07/20/2022 3:15 PM 07/22/2022 3:18 PM Date Activated Date Inactivated Comments 07/15/2022 3:46 PM 07/15/2022 9:11 PM Date Activated Date Inactivated Comments 12/31/2023 11:31 AM Date Activated Date Inactivated Comments 07/20/2022 3:15 PM 07/22/2022 3:18 PM Date Activated Date Inactivated Comments 07/15/2022 3:46 PM 07/15/2022 9:11 PM Chief Complaint and Reason for Visit Chief Complaint R93.89 Chief Complaint R93.89 r93.89 Chief Complaint Admit Date chest tight/ congestion/ coughing Apruar 2024 9:14am Reason for Visit Admit Date Acute sinusitis May 09, 2024 9 :14am Additional Source Comments INFORMATION SOURCE (unrecogn ized section and content) DATE CREATED AUTHOR 02/27/2018 [facility] DATE CREATED AUTHOR AUTHOR'S ORGANIZ ATION 09/15/2020 [facility] DATE CREATED AUTHOR AUTHOR'S ORGANIZ ATION 10/17/2020 [facility] DATE CREATED AUTHOR AUTHOR'S ORGANIZ ATION 08/25/2022 [facility] DATE CREATED AUTHOR AUTHOR'S ORGANIZ ATION 01/01/2023 [facility] DATE CREATED AUTHOR AUTHOR'S ORGANIZ ATION 06/30/2023 [facility] DATE CREATED AUTHOR AUTHOR'S ORGANIZ ATION 01/18/2024 [facility] DATE CREATED AUTHOR AUTHOR'S ORGANIZ ATION 2024 [facility] DATE CREATED AUTHOR AUTHOR'S ORGANIZ ATION 06/13/2024 [facility] EPIC REASON FOR VISIT (unrecogniz ed section and content) Specialty Diagnoses / Procedures Referred By Ismael landis Referred To Contact Diagnoses 36 weeks gestation of Hitesh Holloway DO [address] [place] [address] [facility] [id number] [place] [address] Referral ID Status Reason Start Date Expiration Date Visits Re quested Visits Authorized [id number] 1 Reason Comments Follow-up Reason Comments Follow-up 6m f/upRib pain Reason Comments Routine Visit Reason Comments ER Follow-up Reason Comments Visual Changes Headache Reason Comments Follow-up 3 m Earache Ear pain Scheduled Active and Recently Administ ered Medications [...] (Given - Provider: Stephany Paige APRN - CANAL STRUCTURE OPERATOR) citalopram (CELEXA) tablet 20 mg 20 mg, [...] modification) on Sun07/21/22 at 0600, Until Discontinued 06 (Given - Provider: Elisa Mckeon RN)1420 (Given [...] Loera RN)1420 (Given - Provider: Lakesha Loera RN)222 (Given - Provider: Jennifer Porras) 0639 (Given [...] (NoRateChange - Provider: Stephany Paige APRN - CANAL STRUCTURE OPERATOR)1829 (Paused - Provider: Agata Pollard, VIKTORIA - [...] long duration, Starting on [place] 07/20/22 at 1932, For piggyback infusion, administer at same rate [...] HOURS PRN, Starting on [place] 07/20/22 at 1932, Until Discontinued, Itching, Hives, Lanolin Hydrous OINT Topical, EVERY 1 HOUR PRN, Dry Skin, nipple discomfort, Starting on [place] 07/20/22 at 1932, magnesium hydroxide (MILK OF MAGNESIA) 400 MG/5ML suspension 30 mL 30 mL, Oral, DAILY PRN, Starting on [place] 07/20/22 at 3, Until Discontinued, Constipation, naloxone (NARCAN) injection 0.4 mg 0.4 mg, IntraVENous, PRN, Starting on [place] 07/20/22 at 1932, Until Discontinued, Opioid Reversal, ondansetron (ZOFRAN) injection 4 mg 4 mg, IntraVENous, EVERY 6 HOURS PRN, Starting on [place] 07/20/22 at 3, Until Discontinued, Nausea, 0005 (Given - Provider: Elisa Mckeon RN) oxyCODONE (ROXICODONE) immediate release tablet 10 mg(Linked Group 1) 10 mg, Oral, EVERY 4 HOURS PRN, Starting on [place] 07/20/22 at 1932, Until Discontinued, Pain Severe (7-10), 1806 (See [...] Pollard RN)1839 (Rate/Dose Change - Provider: Agata Pollard, VIKTORIA) [...] Oral, EVERY 4 HOURS PRN, Starting on [place] 07/20/22 at 1933, Until Discontinued, Pain Moderate [...] for 11 minutes (10 units in 167ml).
Scheduled Medication Order 12/29/2023 12/30/2023 12/31/2023 acetaminophen (TYLENOL) tablet 1,000 mg 1,000 mg, Oral, EVERY 8 HOURS SCHEDULED (3 times per day), First dose on Sun12/31/23 at 1400, Until Discontinued, Maximum dose of acetaminophen is 4000mg from all sources in 24 hours. Alternate ibuprofen and acetaminophen every 4 hours. 1400 (Due)2200 (Due) PRN Medication Order 12/29/2023 12/30/2023 12/31/2023 ondansetron (ZOFRAN) injection 4 mg(Linked Group 1) 4 mg, IntraVENous, EVERY 6 HOURS PRN, Starting on Sun12/31/23 at 1131, Until Discontinued, Nausea, Vomiting, Administer if oral route cannot be used. ondansetron (ZOFRAN-ODT) disintegrating tablet 4 mg(Linked Group 1) 4 mg, Oral, EVERY 8 HOURS PRN, Starting on Sun12/31/23 at 1131, Until Discontinued, Nausea, Vomiting Linked Groups Order Group 1: ondansetron (ZOFRAN-ODT) disintegrating tablet 4 mgJump to med 4 mg, Oral, EVERY 8 HOURS PRN, Starting on Sun12/31/23 at 1131, Until Discontinued, Nausea, Vomiting Or ondansetron (ZOFRAN) injection 4 mgJump to med 4 mg, IntraVENous, EVERY 6 HOURS PRN, Starting on Sun12/31/23 at 1131, Until Discontinued, Nausea, Vomiting, Administer if oral route cannot be used. Ordered Prescriptions (unrec ognized section and content) [...] Care Teams (unrecognized sec tion and content) Engineering Technician Parking Relationship Specialty Start Date End Date Chas Balderas MD [address] [place] [address] PCP - General Family Medicine 10/09/23 Engineering Technician Parking Relationship Specialty Start Date End Date Naderer, Chas, MD [address] [place] [address] PCP - General Family Medicine 05/15/23 Team Status: Active Member Role Status Dates Chas Balderas MD Primary Care Provider Active Team Status: Inactive Member Role Status Dates Adriana Ortiz APRN Attending Provider Active Start: December 17, 2023 End: December 17, 2023 Chas Balderas MD Primary Care Provider Active S tart: December 17, 2023 End: December 17, 2023 Team Status: Active Member Role Status Dates Aline Villalobos MD Primary Care Provider Active Team Status: Inactive Member Role Status Dates Aline Villalobos MD Primary Care Provider Active Razia Muller APRN-GLASS LATHE OPERATOR-C Attending Provider Active Goals (unrecognized section [...] BE BASED ON THE PRIMARY CLINICAL RECORDS. [facility] [employer] [facility]. provides no warranty or guarantee of the accuracy or completeness of information in this document.
[2024-06-17 10:54] LABS: Alanine Aminotransferase 40 U/L (14-59); Albumin Level 3.9 g/dL (3.4-5.0); Alkaline Phosphatase 93 U/L (46-116); Aspartate Amino Transferase 18 U/L (15-37); BUN Creatinine Ratio 12.5; Bilirubin Total 0.3 mg/dL (0.2-1.0); Calcium 8.7 mg/dL (8.5-10.1); Carbon Dioxide 19.7 mmol/L (21.0-32.0); Chloride 105 mmol/L (98-107); Estimated GFR (African America >60 (>=60 mL/min/1.73m^2); Estimated GFR (Non-African Ame >60 (>=60 mL/min/1.73m^2); Globulin 3.8 g/dL; Glucose 115 mg/dL (74-106); Potassium 3.7 mmol/L (3.5-5.1); Sodium 137 mmol/L (136-145); Total Protein 7.7 g/dL (6.4-8.2)
== END 2024-06-17 09:56 | disposition home or self-care (01) ==
LOC: LAB 09:55
PROVIDERS: PCP Family Medicine; Visit Provider Nurse Practitioner Family
DX: Z76.89 Persons encountering health services in other specified circumstances (principal)
CPT/HCPCS: 36415; 80053